=== PATIENT | male | born 1960 | race Caucasian/White ===

== ENCOUNTER 2024-01-02 08:19 | Emergency (ER) | payer MEDICAID, SELFPAY ==
[2024-01-02] VITALS (9 sets, daily range): BP systolic 131–150; BP diastolic 92–114; PULSE 84–115; RESP 15–28; TEMP 36.6–36.8; O2SAT 94–96; BMI 19.1
--- NOTE | 2024-01-02 08:58 | EKG12_ITS ---
Test Reason : SOB Blood Pressure : / mmHG Vent. Rate : 108 BPM Atrial Rate : 108 BPM P-R Int : 158 ms QRS Dur : 092 ms QT Int : 324 ms P-R-T Axes : 087 077 069 degrees QTc Int : 434 ms Sinus tachycardia Anterior infarct , age undetermined Abnormal ECG Confirmed by KARL BOYER, EBER ([id number]), society editor JODIE LARIOS ([id number]) on 01/05/2024 2:12:24 PM Referred By: AR Confirmed By:PANKAJ BARAJAS MD
--- NOTE | 2024-01-02 08:59 | ED.VIS.DYS ---
HPI History of Present Illness Chief Complaint: Shortness of Breath Narrative Narrative: 63-year-old male past medical history of COPD presents with 3 to 4 days of dyspnea/shortness of breath. States he has a cough but producing white sputum. No fevers or chills. He is a smoker and is down to 5 cigarettes a day from at least half a pack. He wears oxygen at home 3.5 L per nasal cannula as needed. He states that he has been using his inhaler and his white powder inhaler without relief of his symptoms. Today he woke up very short of breath. He denies any leg swelling. Said intermittent left-sided chest pain over the last few days as well. PFSH PFSH Home Medications ?Medication ?Instructions ?Recorded ?Last Taken ?Type albuterol sulfate 90 mcg/actuation 1 - 2 puff inhalation Q4H PRN PRN 01/02/24 Unknown Rx aerosol inhaler (Ventolin HFA) Wheezing #1 ea prednisone 20 mg tablet 40 mg (2 x 20 mg) PO DAILY #14 tabs 01/02/24 Unknown Rx Allergy/AdvReac Type Severity Reaction Status Date / Time codeine Allergy Mild Itching Verified 01/02/24 10:42 Social History Smoking Status: Never smoker ROS ROS ED ROS Narrative Constitutional: No fever, no chills. HEENT: No sore throat. No neck pain. No loss of vision. No rhinorrhea. Cardiovascular: Left-sided chest pain. No palpitations. No pedal edema. Respiratory: Positive cough productive of white sputum, positive shortness of breath. Abdominal: No abdominal pain. No nausea. No vomiting. Genitourinary: No dysuria. No hematuria. Musculoskeletal: No myalgias. No arthralgias. Neurologic: No headaches. No dizziness. No lightheadedness. Skin: No rash. No change in color. Psychiatric: No depression. No anxiety. EXAM Physical Exam Narrative Exam Narrative: Afebrile. Vital signs noted. HEENT: Normocephalic. Atraumatic. PERRL, EOMI. Neck soft and supple. No point tenderness or step off. Cardiovascular: Positive tachycardia no murmurs, rubs, or gallops appreciated. Respiratory: Mild tachypnea. Bibasilar rales and rhonchi with occasional expiratory wheezing. Gastrointestinal: Abdomen soft, nontender, with normoactive bowel sounds. No rebound or guarding. Neurological: Awake. Alert. Nonfocal, nonlateralizing. Skin: No rash. Normal color. No pallor. Musculoskeletal: No pedal edema. Full range of motion extremities. Const Vital Signs: 01/02/24 08:20 01/02/24 08:23 01/02/24 08:29 Temperature 97.9 F 97.9 F Temperature Source Temporal Temporal Pulse Rate 108 H 115 H Respiratory Rate 28 H 20 H Respiratory Effort Short of Breath Respiratory Depth Shallow Respiratory Pattern Tachypnea Blood Pressure 131/114 H 131/114 H Blood Pressure Mean 119 119 Pulse Ox 96 94 Oxygen Delivery Method Room Air Room Air Nasal Cannula Oxygen Flow Rate (L/min) 01/02/24 08:58 01/02/24 09:20 01/02/24 09:38 Temperature Temperature Source Pulse Rate 101 H Respiratory Rate 22 H Respiratory Effort Respiratory Depth Respiratory Pattern Blood Pressure 150/102 H Blood Pressure Mean 118 Pulse Ox 95 94 Oxygen Delivery Method Nasal Cannula Nasal Cannula Nasal Cannula Oxygen Flow Rate (L/min) 2 01/02/24 09:41 01/02/24 10:43 01/02/24 11:03 Temperature Temperature Source Pulse Rate 84 97 93 Respiratory Rate 22 H 15 20 H Respiratory Effort Respiratory Depth Respiratory Pattern Tachypnea Blood Pressure 140/92 H 150/97 H Blood Pressure Mean 108 114 Pulse Ox 95 95 Oxygen Delivery Method Room Air Room Air Oxygen Flow Rate (L/min) MDM MDM MDM Narrative Medical decision making narrative: Differential diagnosis includes but not limited to COPD exacerbation versus pneumonia versus pneumothorax versus pulmonary embolism versus ACS. I have low suspicion for ACS or pneumonia based on the patient's history and physical. EKG was obtained and interpreted by myself independently as normal sinus rhythm/sinus tachycardia 108 bpm without ectopy or acute ST changes. No STEMI. Chest x-ray 1 view obtained and interpreted by myself independently and shows no evidence of pneumonia or pneumothorax. I do not feel antibiotics are indicated. I reviewed the radiology report which confirms my independent interpretation. I reviewed his laboratory work and he has normal white count 10.2, hemoglobin 14.6 with platelet count normal at 215. Electrolyte panel is significant for chloride of 110 which I think is nonspecific, normal BUN of 13 and creatinine normal at 0.78, high-sensitivity troponin is 5. I do not feel he needs serial enzymes, he states he has been having left-sided chest pain that is worse with coughing as well 4 days. His BNP is normal at 8 so I do not think he is having a CHF exacerbation with that his shortness of breath is from heart failure. While his D-dimer is 0.56, age-related cutoff is 63, so I do not feel he requires CTA of the chest. Upon repeat examination at approximately 10:20 AM, he feels mildly improved, but states that he gets dyspnea on exertion at home he only has oxygen, no portable oxygen. He will be ambulated here in the emergency department to see if he becomes hypoxic or tachycardic. Patient had satisfactory ambulatory pulse ox. Once again he has oxygen at home as well. Repeat examination at approximately 11:30 AM shows him to be resting comfortably. He feels well and can go home. I wrote him a prescription for a new inhaler and for a steroid burst for the next 7 days. He will also be referred to pulmonology. Smoking cessation was encouraged. Return instructions to the emergency department were reviewed. Disposition is discharged home in stable condition. History & Record Review Discussion w/independent historian: Patient Lab Data Attestation: I reviewed the patient's lab results. Labs: Laboratory Results - last 24 hr 01/02/24 08:23 WBC 10.2 RBC 4.64 Hgb 14.6 Hct 45.0 MCV 97.0 H MCH 31.5 MCHC 32.4 RDW Std Deviation 49.3 H RDW Coeff of Brian 13.8 Plt Count 215 MPV 9.6 Immature Gran % (Auto) 0.100 Neut % (Auto) 68.9 Lymph % (Auto) 16.5 L [place] % (Auto) 8.3 Eos % (Auto) 5.6 H Baso % (Auto) 0.6 Absolute Neuts (auto) 7.0 Absolute Lymphs (auto) 1.68 Nucleated RBC % 0 D-Dimer Quant (PE/DVT) 0.56 H* Sodium 142 Potassium 3.8 Chloride 110 H Carbon Dioxide 31.0 Anion Gap 1 L BUN 13 Creatinine 0.78 Est GFR (MDRD) Af Amer 128 Est GFR (MDRD) Non-Af 106 BUN/Creatinine Ratio 16.6 Glucose 107 H Calcium 8.6 Troponin I High Sens 5 B-Natriuretic Peptide 8.0 Radiography Diagnostic Testing: Clinical Impression(s) from Imaging Studies Chest X-Ray 01/02/24 09:25 IMPRESSION: No acute thoracic pathology. Electronically Signed: Janusz Owen MD at 9:57 EDT , Discharge Plan Triage Chief Complaint: Shortness of Breath ED Provider: Angel Colon Dx/Rx/DC Orders Clinical Impression: COPD exacerbation, SOB (shortness of breath), Chest pain Instructions: ED COPD Flare, ED Chest Pain, Uncertain Cause, ED Dyspnea Prescriptions: New prednisone 20 mg tablet 40 mg PO DAILY Qty: 14 0RF albuterol sulfate [Ventolin HFA] 90 mcg/actuation HFA aerosol inhaler 1 - 2 puff inhalation Q4H PRN PRN (Reason: Wheezing) Qty: 1 0RF Primary Care Provider: Care Physician,No Primary Referrals: Care Physician,No Primary [Primary Care Provider] - Print Language: [place]an
--- NOTE | 2024-01-02 09:02 | ED.RN ---
NO OLD EKGS
[2024-01-02 09:12] LABS: Absolute Lymphocyte Count 1.68 X10^3/uL (0.83-4.51); Basophil# 0.06 X10^3/uL; Basophil% 0.6 % (0-1); Eosinophil# 0.57 X10^3/uL; Eosinophils% 5.6 % (0-5); Hemoglobin 14.6 g/dL (13.0-16.5); Lymphocyte # 1.68 X10^3/ul (0.83-4.51); Lymphocyte % 16.5 % (19-41); Mean Corp Hgb Conc 32.4 g/dL (32-36); Mean Corpuscular Hgb 31.5 pg (27.0-32.0); Mean Platelet Vol. 9.6 fl (6.2-12.0); Monocyte# 0.84 X10^3/uL; Monocyte% 8.3 % (0-10); NRBC Flagged by Analyzer 0 % (0-5); Neutrophil % 68.9 % (47-70); Platelet Count 215 K/mm3 (150-450); RBC Distribution Width CV 13.8 % (11.6-14.6); RBC Distribution Width SD 49.3 fl (35.1-43.9); Red Blood Count 4.64 M/mm3 (4.6-6.2); White Blood Count 10.2 K/mm3 (4.4-11.0)
[2024-01-02] MEDS: MethylPREDNISolone 125 MG/2 ML Vial IV (09:24)
--- NOTE | 2024-01-02 09:25 | RAD_ITS ---
STUDY: X-RAY CHEST REASON FOR EXAM: Male, 63 years old. Shortness of breath TECHNIQUE: Frontal view of the chest COMPARISON: None. FINDINGS: The lungs are hyperinflated, but clear. There are no pleural effusions. There is no pneumothorax. The heart is normal in size. The visualized osseous structures are within normal limits. RAD/Chest 1 View (Portable) IMPRESSION: No acute thoracic pathology. Electronically Signed: Janusz Owen MD at 9:57 EDT ,
[2024-01-02 09:28] LABS: Anion Gap 1 (5-15); BUN 13 mg/dL (7-18); BUN/Creat Ratio 16.6 RATIO (10-20); Calcium,Total 8.6 mg/dL (8.5-10.1); Chloride 110 mmol/L (98-107); Creatinine, Serum 0.78 mg/dL (0.70-1.30); EST Glomerular Filtration Rate 106 mL/min (>60); Est Glom Filt Rate - Afr Amer 128 mL/min (>60); Glucose 107 mg/dL (74-106); Potassium 3.8 mmol/L (3.5-5.1); Sodium Level 142 mmol/L (136-145); Troponin-I HS 5 pg/mL (3.0-78.0)
[2024-01-02] MEDS: Ipratropium/Albuterol Sulfate 3 ML AMPUL.NEB INHALATION (09:42)
[2024-01-02 09:44] LABS: D-Dimer Quantitative (DVT/PE) 0.56 FEU/ug/m (0.27-0.49)
--- NOTE | 2024-01-02 10:51 | ED.RN ---
PATIENT SEEMS SOB AND AUDIBLE WHEEZES WITH AMBULATION
== END 2024-01-02 11:52 | disposition home or self-care (01) ==
PROVIDERS: Emergency Provider Emergency Medicine; Visit Provider Emergency Medicine
DX: J44.1 Chronic obstructive pulmonary disease with (acute) exacerbation (principal); R07.9 Chest pain, unspecified; F17.210 Nicotine dependence, cigarettes, uncomplicated
CPT/HCPCS: 71045; 80048; 83880; 84484; 85025; 85379; 93005; 94640; 96374; 99285; A4216

== ENCOUNTER → 2024-01-20 | Outpatient (CLI) | payer MEDICAID, SELFPAY ==
[2024-01-20 12:16] LABS: Vitamin D,25 Hydroxy 21.4 ng/mL
[2024-01-20 12:19] LABS: Absolute Lymphocyte Count 1.32 X10^3/uL (0.83-4.51); Absolute Neutrophil Count 5.6 X10^3/uL (2.0-7.7); Basophil# 0.05 X10^3/uL; Basophil% 0.6 % (0-1); Eosinophil# 0.32 X10^3/uL; Hematocrit 46.2 % (40-54); Hemoglobin 14.5 g/dL (13.0-16.5); Lymphocyte # 1.32 X10^3/ul (0.83-4.51); Lymphocyte % 16.6 % (19-41); Mean Corp Hgb Conc 31.4 g/dL (32-36); Mean Corpuscular Hgb 30.4 pg (27.0-32.0); Mean Corpuscular Volume 96.9 fL (80-94); Mean Platelet Vol. 9.3 fl (6.2-12.0); Monocyte# 0.65 X10^3/uL; Monocyte% 8.2 % (0-10); NRBC Flagged by Analyzer 0 % (0-5); Neutrophil # 5.61 X10^3/uL (2.7-7.7); Neutrophil % 70.3 % (47-70); Platelet Count 347 K/mm3 (150-450); RBC Distribution Width CV 13.4 % (11.6-14.6); RBC Distribution Width SD 48.6 fl (35.1-43.9); Red Blood Count 4.77 M/mm3 (4.6-6.2)
[2024-01-20 12:29] LABS: ALB/GLOB Ratio 0.7 RATIO (0.9-2.4); AST(SGOT) 12 U/L (15-37); Alanine Aminotransfer ALT/SGPT 14 U/L (16-61); Albumin, Serum 2.9 g/dL (3.2-5.0); Alkaline Phosphatase 86 U/L (45-117); Anion Gap 2 (5-15); BUN 8 mg/dL (7-18); BUN/Creat Ratio 10.6 RATIO (10-20); Calcium,Total 8.8 mg/dL (8.5-10.1); Chloride 100 mmol/L (98-107); Cholesterol 148 mg/dL (200); Creatinine, Serum 0.75 mg/dL (0.70-1.30); EST Glomerular Filtration Rate 111 mL/min (>60); Est Glom Filt Rate - Afr Amer 135 mL/min (>60); Globulin 4.2 g/dL (2.2-4.2); Glucose 90 mg/dL (74-106); High Density Lipoprotein 36 mg/dL; Potassium 4.1 mmol/L (3.5-5.1); Protein, Total 7.1 g/dL (6.4-8.2); Sodium Level 135 mmol/L (136-145); Triglycerides 114 mg/dL; Very Low Density Lipoprotein 23 mg/dL (5-40)
== END | disposition home or self-care (01) ==
LOC: MTLAB 09:59
PROVIDERS: PCP Family Medicine; Referring Provider Family Medicine; Visit Provider Family Medicine
DX: I10 Essential (primary) hypertension (principal); N40.0 Benign prostatic hyperplasia without lower urinary tract symptoms
CPT/HCPCS: 36415; 80053; 80061; 82306; 84153; 84443; 85025

== ENCOUNTER 2024-01-21 19:06 | Observation (INO) | payer MEDICAID, SELFPAY ==
[2024-01-21 19:08] VITALS: BP 119/71; PULSE 92; RESP 18; TEMP 36.3; O2SAT 95; BMI 18.8
--- NOTE | 2024-01-21 19:27 | EDS_ITS ---
HPI History of Present Illness Chief Complaint: Allergic Reaction Detail of Chief Complaint: Upper lip swelling. Informant: patient Onset/Context/Timing Onset: Today and Hours Context: Gradual Onset Timing: Continuous Current Severity: Mild Maximum Severity: Mild Narrative Narrative: 63-year-old male history of hypertension and COPD. On the blood pressure medication lisinopril. Hour or so ago he noticed atraumatic swelling to his left upper lip. No trouble breathing or swallowing. No tongue swelling. Denies any insect bite or stings. No prior history. Has been on the blood pressure medication for years. Denies any other complaints. Prior similar symptoms: No Recent Illness/Hospitalization: No PFSH PFS Home Medications ?Medication ?Instructions ?Recorded ?Last Taken ?Type albuterol sulfate 90 mcg/actuation 1 - 2 puff inhalation Q4H PRN PRN 01/02/24 Unknown Rx aerosol inhaler (Ventolin HFA) Wheezing #1 ea fluticasone fur. 100 mcg-umeclid 1 ea inhalation DAILY 01/21/24 Unknown History 62.5 mcg-vilant 25 mcg inhalat.powder (Trelegy Ellipta) ipratropium 0.5 mg-albuterol 3 mg ml inhalation 01/21/24 Unknown History (2.5 mg base)/3 mL nebulization soln lisinopril 10 mg tablet 30 mg PO DAILY 01/21/24 Unknown History loratadine 10 mg tablet (Allergy 10 mg PO Q24H PRN allergy symptoms 01/21/24 Unknown History Relief (loratadine)) omeprazole 20 mg capsule,delayed 20 mg PO DAILY 01/21/24 Unknown History release tamsulosin 0.4 mg capsule 0.4 mg PO DAILY 01/21/24 Unknown History Allergy/AdvReac Type Severity Reaction Status Date / Time codeine Allergy Mild Itching Verified 01/21/24 19:08 Social History Smoking Status: Never smoker ROS ROS ED ROS Narrative Denies recent illness. Review of Systems ROS Unobtainable: Denies due to encephalopathy Constitutional Constitutional ED: Denies chills or fever(s) Eyes Eyes: Denies blurry vision ENT ENT ED: Denies ear pain Cardiovascular Cardiovascular: Denies chest pain Respiratory/Chest Respiratory/Chest: Denies cough Gastrointestinal Gastrointestinal: Denies abdominal pain Genitourinary Genitourinary ED: Denies dysuria or hematuria Musculoskeletal Musculoskeletal: Denies arthralgias Integumentary Denies abscess Neurologic Neurologic: Denies headache(s) Psychiatric Psychiatric: Denies anxiety Endocrine Endocrinology: Denies cold intolerance Hematologic/Lymphatic Hematologic/Lymphatic: Reports none Allergic/Immunologic Allergic/Immunologic ED: Reports mouth swelling; Denies tongue swelling or urticaria EXAM Physical Exam Narrative Exam Narrative: Send 3-year-old male no acute distress vital signs stable afebrile. Pulse ox 95% room air no signs of hypoxia. No trouble breathing or swallowing. No drooling. H EENT exam his upper lip is swollen mildly to moderately. No trouble breathing or swallowing. No drooling. Posterior pharynx and tongue are normal and not swollen. There is no signs of any insect bite or sting on his lip. Neck nontender. Lungs clear. Heart regular rhythm rate about 90 no murmur. Chest wall ribs nontender. Abdomen soft nontender. Moving all 4 extremities. Nontender no edema. No rashes. He is awake and alert. Answering questions following commands. He is lying comfortably in bed. Const Vital Signs: 01/21/24 19:08 01/21/24 21:07 Temperature 97.4 F L Temperature Source Temporal Pulse Rate 92 94 Respiratory Rate 18 18 Blood Pressure 119/71 Blood Pressure Mean 87 Pulse Ox 95 97 Oxygen Delivery Method Room Air Room Air Positive well nourished and well developed; Negative for obese, cachectic, contractures or unkempt General Appearance ED: well developed and NAD; Negative for unkempt, cachectic, contractures, cyanotic or diaphoretic Nutritional Appearance: Negative for cachectic or obese HEENT Reports moist mucous membranes; Denies dry mucous membranes HEENT Narrative: Swollen left upper lip. No tongue swelling. Posterior pharynx unremarkable. Mouth ED: No dry mucous membranes Mouth: No dry mucous membranes Eyes PERRL and EOMs intact bilaterally Neck no lymphadenopathy, supple and no JVD Chest Wall inspection of chest normal and palpation of chest normal Resp normal respiratory effort and clear to auscultation bilaterally Effort and Inspection: Negative for retractions Auscultation: Negative for rales, rhonchi, wheezes or diminished lung sounds Cardio regular rate, regular rhythm, S1 normal heart sound, S2 normal heart sound and no murmurs GI normal to inspection, nondistended, normoactive bowel sounds, non-tender, non- distended and no masses Auscultation: Negative for normoactive bowel sounds Palpation: soft; Negative for tender Back/Spine no CVA tenderness General Back: Negative for CVA tenderness Cervical Spine: Negative for cervical spine tenderness Thoracic Spine / Upper Back: Negative for thoracic spinal tenderness or par aspinal muscle tenderness Lumbar Spine / Lower Back: Negative for lumbar spinal tenderness Extremity normal to inspection General Extremety ED: Negative for edema, tenderness or other findings General Extremity: Negative for edema or other findings Neuro oriented x3 and CN's II-XII intact bilaterally Sensorium / Orientation: alert Motor Exam: strength 5/5 throughout; Negative for general weakness or strength abnormal Psych mental status grossly normal Appearance: Negative for unkempt Attitude: No agitated Mood & Affect: Negative for depressed, anxious or tearful Skin no rashes or lesions noted, no wounds and skin turgor normal General Skin Exam: elasticity normal Lesions: No lesion noted Rashes: No rashes noted Trauma: Negative for abrasion Wounds: Negative for wounds noted MDM MDM MDM Narrative Medical decision making narrative: 63-year-old male with atraumatic lip swelling. Concern for angioneurotic edema secondary to him being on the blood pressure medication lisinopril. Patient IV will be started. He will be given Solu-Medrol Benadryl and Pepcid. That may not cause any relief of his symptoms if it is REEMA inhibitor induced. Will be observed closely. Currently he is in no distress. At this time he does not need to be intubated. Repeat exam at 8:45 PM upper lips a little more swollen. No swelling of the tongue and posterior pharynx. No trouble breathing. No significant change but also no improvement with the medications. Repeat exam at 9:35 PM. Slightly worse. Again just swelling of his upper lip. No tongue or posterior pharynx involvement. He is in no distress. He is lying supine in bed. He is having no trouble breathing or swallowing. I will speak to the hospitalist about observing the patient overnight. History & Record Review Discussion w/independent historian: Patient Additional record(s) reviewed:: Prior inpatient record, Prior outpatient record, Prior ED visit and Prior labs Discharge Plan Triage Chief Complaint: Allergic Reaction ED Provider: Sameer Decker Dx/Rx/DC Orders Clinical Impression: Angioneurotic edema, History of hypertension, History of COPD Instructions: ED Angioedema Prescriptions: No Action albuterol sulfate [Ventolin HFA] 90 mcg/actuation HFA aerosol inhaler 1 - 2 puff inhalation Q4H PRN PRN (Reason: Wheezing) Qty: 1 0RF lisinopril 10 mg tablet 30 mg PO DAILY ipratropium-albuterol 0.5 mg-3 mg(2.5 mg base)/3 mL solution for nebulization inhalation loratadine [Allergy Relief (loratadine)] 10 mg tablet 10 mg PO Q24H PRN (Reason: allergy symptoms) Trelegy Ellipta 100-62.5-25 mcg blister with device 1 ea inhalation DAILY tamsulosin 0.4 mg capsule 0.4 mg PO DAILY omeprazole 20 mg capsule,delayed release(DR/EC) 20 mg PO DAILY Primary Care Provider: Iker Blackwell Referrals: Iker Blackwell MD [Primary Care Provider] - Print Language: Polish Disposition Disposition: Acute Care Hospital [facility]
[2024-01-21] MEDS: DiphenhydrAMINE 50 MG/ML Syringe 25 MG IV (19:33)
[2024-01-21] MEDS: MethylPREDNISolone 125 MG/2 ML Vial IV (19:33)
[2024-01-21] MEDS: Famotidine 200 MG/20 ML MDV 20 MG in 0.9% Normal Saline (Pres. free 8 ML 300 MG IV (19:36)
[2024-01-21 21:07] VITALS: PULSE 94; RESP 18; O2SAT 97
--- NOTE | 2024-01-21 21:37 | PCM.HP.STD ---
[facility] - General General Date of Admission: 01/21/24 Date of Service: 01/21/24 Chief Complaint: Upper Lip Swelling on Lisinopril. HPI Narrative WOLF WALSH, is a 63 M with a past medical history of essential hypertension, hyperlipidemia, history of tobacco abuse; with subsequent COPD, BPH, GERD and OA who presents to [facility] ER complaining of swelling of his upper lip. Mr. Walsh reports his symptoms began approximately 3-4 hours prior to arrival after he awakened from a nap with atraumatic swelling of his upper lip. He states he has been on Lisinopril for years and he denies a history of cough, lip swelling or angioedema. He also denies any insect bites or stings. He denies difficulty with swallowing or breathing at this time. There is no related fever, chills, nausea, vomiting, diarrhea, constipation or urticaria. In the ER he was diagnosed with Angioedema due to Lisinopril and he was then admitted to the PCU under observation status for a stay that is expected to be less than 2 midnights. [facility] Home Medications ?Medication ?Instructions ?Recorded ?Last Taken ?Type albuterol sulfate 90 mcg/actuation 1 - 2 puff inhalation Q4H PRN PRN 01/02/24 Unknown Rx aerosol inhaler (Ventolin HFA) Wheezing #1 ea fluticasone fur. 100 mcg-umeclid 1 ea inhalation DAILY 01/21/24 Unknown History 62.5 mcg-vilant 25 mcg inhalat.powder (Trelegy Ellipta) ipratropium 0.5 mg-albuterol 3 mg 1.5 ml inhalation copd 01/21/24 Unknown History (2.5 mg base)/3 mL nebulization soln lisinopril 10 mg tablet 30 mg PO DAILY 01/21/24 Unknown History loratadine 10 mg tablet (Allergy 10 mg PO Q24H PRN allergy symptoms 01/21/24 Unknown History Relief (loratadine)) omeprazole 20 mg capsule,delayed 20 mg PO DAILY 01/21/24 Unknown History release tamsulosin 0.4 mg capsule 0.4 mg PO DAILY 01/21/24 Unknown History Allergy/AdvReac Type Severity Reaction Status Date / Time lisinopril Allergy Severe Angioedema Verified 01/21/24 22:06 codeine Allergy Mild Itching Verified 01/21/24 19:08 Social History Smoking Status: Light Smoker (<10/day) ROS ROS Narrative Review of systems: Constitutional: Patient denies fever or chills. Eyes: Patient denies visual changes or discharge from eyes. ENT: Patient denies runny nose, sore throat or ear pain. CV: Patient denies chest pain, palpitations or heart racing. Resp: Patient denies SOB or cough. GI: Patient denies abdominal pain, nausea or vomiting. : Patient denies dysuria, hematuria or urinary frequency. MSK: Patient denies arthralgias or myalgias. Skin: Patient denies rash, abscess or jaundice. Psych: Patient denies symptoms related to uncontrolled depression or anxiety. Neuro: Patient denies headache, paresthesias or focal neurologic deficits. Hematology: Patient denies easy bleeding or easy bruisability. Endocrinology: Patient denies polyuria, polydipsia or polyphagia. 14 point ROS otherwise negative except for positives noted above in HPI. Vital Signs Vital Signs Vital Signs: 01/21/24 19:08 01/21/24 21:07 Temperature 97.4 F L Temperature Source Temporal Pulse Rate 92 94 Respiratory Rate 18 18 Blood Pressure 119/71 Blood Pressure Mean 87 Pulse Ox 95 97 Oxygen Delivery Method Room Air Room Air Weight Weight: 142 lb 11.2 oz Body Mass Index (BMI) 18.8 Physical Exam Const alert, oriented x3, no apparent distress, average body habitus and healthy appearing General Appearance: cooperative HEENT normocephalic, head/scalp atraumatic, hearing grossly normal bilaterally and moist oral mucous membranes HEENT Narrative: Patient has swollen upper lip. Eyes PERRL and EOMs intact bilaterally Neck no lymphadenopathy and supple Resp normal respiratory effort, no retractions, no use of accessory muscles and clear to auscultation bilaterally Cardio regular rate and regular rhythm GI normal to inspection, nondistended, normoactive bowel sounds, soft to palpation, non-tender and non-distended Extremity normal to inspection and full ROM Skin Skin Narrative: Patient has no evidence of rash, abscess or jaundice. Neuro oriented x3, CN's II-XII intact bilaterally, moves all extremities and no focal motor deficits Sensorium / Orientation: awake, alert, oriented to person, oriented to place and oriented to time Speech: speech normal Psych affect normal Results Medical Records Data Attestation: I reviewed the patient's medical records Lab / Micro Data Attestation: I reviewed the patient's lab results. Assessment & Plan Assessment/Plan (1) Angioneurotic edema: QUALIFIERS: Encounter type: initial encounter Qualified Code(s): T78.3XXA - Angioneurotic edema, initial encounter (2) Adverse reaction to REEMA inhibitor drug: QUALIFIERS: Encounter type: initial encounter Qualified Code(s): T46.4X5A - Adverse effect of kaiomlofipt-[id number] inhibitors, initial encounter (3) History of hypertension: (4) History of COPD: (5) History of tobacco abuse: PLAN: Plan 1. Angioedema with upper lip swelling due to Adverse Drug Reaction to Lisinopril - Admit to PCU under observation status. Continue Solumedrol, Pepcid and prn IV Benadryl begun in the ER and monitor for improvement. I also contacted the pharmacist on-call and had this agent added to his list of allergies to prevent potential recurrence. 2. Essential hypertension - Stop Lisinopril permanently and give IV Hydralazine prn for systolic blood pressure > 160 mmHg. 3. Hyperlipidemia - Resume statin in AM. 4. History of tobacco abuse; with subsequent COPD - Stable with no evidence of acute flare at this time. 5. BPH - Stable. Resume Tamsulosin as previous. 6. GERD - Continue PPI as before. 7. OA - Give Tylenol prn. 8. DVT prophylaxis - Lovenox 40 mg sq daily. Total time: Approximately 70 minutes. Charges/Coding Visit Charges OBSV E&M: 63212 Observ/hosp same date L2
[2024-01-21 21:55] VITALS: BP 117/93; PULSE 92; RESP 24; TEMP 37.1; O2SAT 94
[2024-01-21 22:27] VITALS: BMI 17.2
[2024-01-21 22:55] VITALS: BP 123/93; PULSE 89; RESP 18; TEMP 36.7; O2SAT 94
[2024-01-21] MEDS: Loratadine 10 MG Tablet PO (23:15)
[2024-01-21] MEDS: MELATONIN 3 MG TABLET PO (23:15)
[2024-01-21] MEDS: cycloBENZAPRine HCl 10 MG Tablet PO (23:15)
[2024-01-21] MEDS: 0.9% Normal Saline (1000mL) 1,000 ML 70 ML IV (23:15)
[2024-01-22 03:56] VITALS: BMI 17.2
[2024-01-22 04:00] VITALS: BP 123/77; PULSE 91; RESP 16; TEMP 36.6; O2SAT 95
[2024-01-22 05:23] LABS: Absolute Lymphocyte Count 0.36 X10^3/uL (0.83-4.51); Absolute Neutrophil Count 2.4 X10^3/uL (2.0-7.7); Basophil# 0.01 X10^3/uL; Basophil% 0.4 % (0-1); Hematocrit 40.4 % (40-54); Lymphocyte # 0.36 X10^3/ul (0.83-4.51); Lymphocyte % 12.9 % (19-41); Mean Corp Hgb Conc 32.2 g/dL (32-36); Mean Corpuscular Hgb 30.7 pg (27.0-32.0); Mean Corpuscular Volume 95.5 fL (80-94); Mean Platelet Vol. 9.3 fl (6.2-12.0); Monocyte# 0.02 X10^3/uL; Monocyte% 0.7 % (0-10); NRBC Flagged by Analyzer 0 % (0-5); Neutrophil # 2.39 X10^3/uL (2.7-7.7); Neutrophil % 85.6 % (47-70); POSITIVE DIFFERENTIAL YES; Platelet Count 314 K/mm3 (150-450); RBC Distribution Width CV 13.2 % (11.6-14.6); RBC Distribution Width SD 46.6 fl (35.1-43.9); Red Blood Count 4.23 M/mm3 (4.6-6.2); White Blood Count 2.8 K/mm3 (4.4-11.0)
[2024-01-22 05:37] LABS: Differential Indicated SCAN CRITERIA MET
[2024-01-22 05:59] LABS: ALB/GLOB Ratio 0.7 RATIO (0.9-2.4); AST(SGOT) 8 U/L (15-37); Alanine Aminotransfer ALT/SGPT 9 U/L (16-61); Albumin, Serum 2.5 g/dL (3.2-5.0); Alkaline Phosphatase 79 U/L (45-117); Anion Gap 5 (5-15); BUN 10 mg/dL (7-18); BUN/Creat Ratio 12.3 RATIO (10-20); Calcium,Total 8.4 mg/dL (8.5-10.1); Chloride 102 mmol/L (98-107); Creatinine, Serum 0.81 mg/dL (0.70-1.30); EST Glomerular Filtration Rate 102 mL/min (>60); Est Glom Filt Rate - Afr Amer 123 mL/min (>60); Estimated Creatinine Clearance 80.67 ml/min; Globulin 3.8 g/dL (2.2-4.2); Glucose 192 mg/dL (74-106); Potassium 4.2 mmol/L (3.5-5.1); Protein, Total 6.3 g/dL (6.4-8.2); Sodium Level 135 mmol/L (136-145)
[2024-01-22 06:22] LABS: Differential Comment SCANNED
[2024-01-22] MEDS: Ipratropium/Albuterol Sulfate 3 ML AMPUL.NEB 1 ML INHALATION (07:21)
[2024-01-22 07:26] VITALS: PULSE 96; RESP 16; O2SAT 91
[2024-01-22 09:46] VITALS: BP 107/80; PULSE 100; RESP 18; TEMP 36.7; O2SAT 96
[2024-01-22] MEDS: MethylPREDNISolone 125 MG/2 ML Vial 60 MG IV (09:46)
[2024-01-22] MEDS: Famotidine 200 MG/20 ML MDV 20 MG in 0.9% Normal Saline (Pres. free 8 ML 300 MG IV (09:46)
[2024-01-22] MEDS: Tamsulosin HCl 0.4 MG Capsule PO (09:47)
[2024-01-22] MEDS: Pantoprazole Sodium 20 MG Tablet PO (09:47)
--- NOTE | 2024-01-22 10:10 | PCM.DC.SUM ---
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: Status: Acute Code(s): T46.4X5A - Adverse effect of cygwsvjimhn-oxxrihnwpn-lhhjej inhibitors, initial encounter Qualifiers: Encounter type: initial encounter Qualified Code(s): T46.4X5A - Adverse effect of jvdvosenqfa-ldgiplzfav-mzyrjn inhibitors, initial encounter (3) History of hypertension: Status: Acute Code(s): Z86.79 - Personal history of other diseases of the circulatory system (4) History of COPD: Status: Chronic Code(s): Z87.09 - Personal history of other diseases of the respiratory system (5) History of tobacco abuse: Status: Acute Code(s): Z87.891 - Personal history of nicotine dependence Medications at Discharge Home Medications albuterol sulfate 90 mcg/actuation aerosol inhaler (Ventolin HFA) 1 - 2 puff inhalation Q4H PRN PRN Wheezing #1 ea 01/02/24 fluticasone fur. 100 mcg-umeclid 62.5 mcg-vilant 25 mcg inhalat.powder (Trelegy Ellipta) 1 ea inhalation DAILY 01/21/24 ipratropium 0.5 mg-albuterol 3 mg (2.5 mg base)/3 mL nebulization soln 1.5 ml inhalation copd 01/21/24 loratadine 10 mg tablet (Allergy Relief (loratadine)) 10 mg PO Q24H PRN allergy symptoms 01/21/24 omeprazole 20 mg capsule,delayed release 20 mg PO DAILY 01/21/24 tamsulosin 0.4 mg capsule 0.4 mg PO DAILY 01/21/24 diphenhydramine HCl 25 mg capsule 50 mg (2 x 25 mg) PO TID PRN allergic reaction #20 caps 01/22/24 famotidine 20 mg tablet 20 mg PO DAILY #5 tabs 01/22/24 prednisone 20 mg tablet 40 mg (2 x 20 mg) PO DAILY #10 tabs 01/22/24 Hospital Course Operations None Procedures None Summary of Care Provided Minutes Spent on Discharge: 32 Hospital Course: Patient presents with lip swelling that began suddenly on the . Patient had no airway compromise per presented to the emergency room. He had received 105 mg of methylprednisolone, 20 mg of famotidine and 25 mg of diphenhydramine. Those were all obtained in the emergency room and on the floor, he was continued on those medications. His lip swelling has completely resolved. This is never happened before. Patient was previously taking lisinopril and that is been discontinued as this is an REEMA inhibitor induced angioedema. Patient also be advised to avoid angiotensin receptor blockers in the future as that can have the same reaction. Patient takes lisinopril for hypertension. Blood pressure is remained stable here but given his history of hypertension will start him on amlodipine 2.5 mg daily. Patient will be continued on prednisone 40 mg for 5 days as well as famotidine orally for 5 days and diphenhydramine as needed. Patient is coming from [place] but plans to stay here with his daughter states that he has been established with a primary care physician up here. Weight / BMI Weight Weight: 61.1 kg Body Mass Index (BMI) 17.2 ABG / Lab / Microbiology Data 01/22/24 04:59 01/22/24 04:59 Laboratory: Laboratory Results - last 24 hr 01/22/24 04:59: WBC 2.8 L, RBC 4.23 L, Hgb 13.0, Hct 40.4, MCV 95.5 H, MCH 30.7, MCHC 32.2, RDW Std Deviation 46.6 H, RDW Coeff of Brian 13.2, Plt Count 314, MPV 9.3, Immature Gran % (Auto) 0.400, Neut % (Auto) 85.6 H, Lymph % (Auto) 12.9 L, [place] % (Auto) 0.7, Eos % (Auto) 0.0, Baso % (Auto) 0.4, Absolute Neuts (auto) 2.4, Absolute Lymphs (auto) 0.36 L, Nucleated RBC % 0, Differential Comment SCANNED, Diff Path Review October, Sodium 135 L, Potassium 4.2, Chloride 102, Carbon Dioxide 28.0, Anion Gap 5, BUN 10, Creatinine 0.81, Estim Creat Clear Calc 80.67, Est GFR (MDRD) Af Amer 123, Est GFR (MDRD) Non-Af 102, BUN/Creatinine Ratio 12.3, Glucose 192 H, Calcium 8.4 L, Phosphorus 2.0 L, Magnesium 2.0, Total Bilirubin 0.30, AST 8 L, ALT 9 L, Alkaline Phosphatase 79, Total Protein 6.3 L, Albumin 2.5 L, Globulin 3.8, Albumin/Globulin Ratio 0.7 L, TSH 0.600 D/C Instructions Discharge Diet: No restrictions Meaningful Use Info Meaningful Use Meaningful Use Diagnoses (Choose all that apply): None applicable Ischemic Stroke Statin Dosing Therapy Reference: STATIN DOSE THERAPY REFERENCE: * Patients > 75 years receive moderate or high dose statin therapy. * Patients 75 years or YOUNGER should receive HIGH intensity statin dose unless contraindicated. You will be required to document reason for non-treatment if statin daily dose does not meet guidelines. HIGH DOSE STATIN THERAPY DAILY Atorvastatin > than or = to 40 mg Rosuvastatin > than or = to 20 mg Amlodipine + Atorvastatin > than or = to 2.5/40 mg Ezetimibe + Simvastatin 10/80 mg Simvastatin 80mg Discharge Plan Admission Admit Date/Time: 01/21/24 21:57 Primary Reason for Your Visit: Andioedema Attending Provider: Elijah Guerrero Primary Care Provider: Iker Blackwell Consulting Providers: Jose Tyler Instructions Patient Instructions: ED Angioedema Additional Instructions / Restrictions: You had angioedema (swelling on your face) secondary to lisinopril. That can be a potentially severe life-threatening reaction in the future so you should never take lisinopril, which is part of the REEMA inhibitor family of medications, but also to avoid the medications angiotensin receptor blockers (AKA, ARBs. such as losartan) in the future. If you tell your primary care doctor or any other physician that you have a history of angioedema they will most likely know what you are referring to. I have started you on amlodipine to help with your blood pressure. This medication will not have that side effect. Discharge Orders/Prescriptions Prescriptions: New prednisone 20 mg tablet 40 mg PO DAILY Qty: 10 0RF famotidine 20 mg tablet 20 mg PO DAILY Qty: 5 0RF diphenhydramine HCl 25 mg capsule 50 mg PO TID PRN (Reason: allergic reaction) Qty: 20 0RF Continued albuterol sulfate [Ventolin HFA] 90 mcg/actuation HFA aerosol inhaler 1 - 2 puff inhalation Q4H PRN PRN (Reason: Wheezing) Qty: 1 0RF ipratropium-albuterol 0.5 mg-3 mg(2.5 mg base)/3 mL solution for nebulization 1.5 ml inhalation loratadine [Allergy Relief (loratadine)] 10 mg tablet 10 mg PO Q24H PRN (Reason: allergy symptoms) Trelegy Ellipta 100-62.5-25 mcg blister with device 1 ea inhalation DAILY tamsulosin 0.4 mg capsule 0.4 mg PO DAILY omeprazole 20 mg capsule,delayed release(DR/EC) 20 mg PO DAILY Discontinued lisinopril 10 mg tablet 30 mg PO DAILY Referrals / Follow Up: Iker Blackwell MD [Primary Care Provider] - Within 2 Weeks Disposition Disposition (needs filled in before D/C Order can be placed): Home, Self Care
--- NOTE | 2024-01-22 10:32 | CASEMGMT ---
Patient has order for discharge. RN CM in to discuss needs at discharge. Patient denies needs or help at discharge, lives with daughter. Patient had no further questions or concerns.
[2024-01-22 13:59] LABS: Pathologist Review Reviewed
== END 2024-01-22 10:19 | disposition home or self-care (01) ==
LOC: ED 21:36 → PCU 22:07
PROVIDERS: Admitting Provider Internal Medicine; Emergency Provider Emergency Medicine; PCP Family Medicine
DX: T78.3XXA Angioneurotic edema, initial encounter (principal); J44.9 Chronic obstructive pulmonary disease, unspecified; I10 Essential (primary) hypertension; K21.9 Gastro-esophageal reflux disease without esophagitis; T46.4X5A Adverse effect of angiotensin-converting-enzyme inhibitors, initial encounter; F17.200 Nicotine dependence, unspecified, uncomplicated; E78.5 Hyperlipidemia, unspecified; Z79.51 Long term (current) use of inhaled steroids; Z79.899 Other long term (current) drug therapy; M19.90 Unspecified osteoarthritis, unspecified site; N40.0 Benign prostatic hyperplasia without lower urinary tract symptoms
CPT/HCPCS: 36415; 80053; 83735; 84100; 84443; 85025; 94640; 94668; 96365; 96366; 96375; 96376; 99221; 99284; J7030; A4216; G0378; J3490

== ENCOUNTER 2024-05-17 15:18 | Observation (INO) | payer MEDICAID, SELFPAY ==
[2024-05-17] VITALS (16 sets, daily range): BP systolic 121–160; BP diastolic 75–106; PULSE 92–109; RESP 16–25; TEMP 36.5–37; O2SAT 94–98; BMI 20.4; BMI 19.8
--- NOTE | 2024-05-17 15:40 | EKG12_ITS ---
Test Reason : SOB Blood Pressure : */* mmHG Vent. Rate : 90 BPM Atrial Rate : 90 BPM P-R Int : 150 ms QRS Dur : 90 ms QT Int : 346 ms P-R-T Axes : 65 42 46 degrees QTcB Int : 423 ms Sinus rhythm with Premature atrial complexes Anterior infarct (cited on or before 02-Jan-2024) Abnormal ECG Confirmed by ROCK BOYER, PARAG ([id number]), editorial writer HAMILTON JUAREZ ([id number]) on 05/18/2024 11:40:35 AM Referred By: Confirmed By: PARAG WILKERSON MD
--- NOTE | 2024-05-17 15:41 | EDS_ITS ---
HPI History of Present Illness Chief Complaint: Shortness of Breath Detail of Chief Complaint: Shortness of breath Informant: patient Narrative Narrative: Patient presents to the emergency department via EMS from home with increased shortness of breath over the last 3 days. He does have a cough is mostly nonproductive but at times brings up some white phlegm. He denies fevers or chills or sweats. He does have history of COPD and is on 3-1/2 L at night when he sleeps. Denies sick contacts. Patient denies recent travel or surgery. No history of PE or DVT. Complains of chest soreness from coughing. [facility] Medical History (Updated 05/17/24 @ 17:[address] Dior Candelaria, DO) History of tobacco abuse Adverse reaction to REEMA inhibitor drug History of COPD History of hypertension Home Medications ?Medication ?Instructions ?Recorded ?Last Taken ?Type albuterol sulfate 90 mcg/actuation 1 - 2 puff inhalation Q4H PRN PRN 01/02/24 Unknown Rx aerosol inhaler (Ventolin HFA) Wheezing #1 ea fluticasone fur. 100 mcg-umeclid 1 ea inhalation DAILY breathing 01/21/24 Unknown History 62.5 mcg-vilant 25 mcg inhalat.powder (Trelegy Ellipta) ipratropium 0.5 mg-albuterol 3 mg 1.5 ml inhalation copd 01/21/24 Unknown History (2.5 mg base)/3 mL nebulization soln loratadine 10 mg tablet (Allergy 10 mg PO Q24H PRN allergy symptoms 01/21/24 Unknown History Relief (loratadine)) omeprazole 20 mg capsule,delayed 20 mg PO DAILY reflux 01/21/24 Unknown History release tamsulosin 0.4 mg capsule 0.4 mg PO DAILY prostate 01/21/24 Unknown History amlodipine 2.5 mg tablet (Norvasc) 2.5 mg PO DAILY #30 tabs 01/22/24 Unknown Rx diphenhydramine HCl 25 mg capsule 50 mg (2 x 25 mg) PO TID PRN 01/22/24 Unknown Rx allergic reaction #20 caps famotidine 20 mg tablet 20 mg PO DAILY #5 tabs 01/22/24 Unknown Rx prednisone 20 mg tablet 40 mg (2 x 20 mg) PO DAILY #10 tabs 01/22/24 Unknown Rx Allergy/AdvReac Type Severity Reaction Status Date / Time lisinopril Allergy Severe Angioedema Verified 05/17/24 15:23 codeine Allergy Mild Itching Verified 05/17/24 15:23 Social History Smoking Status: Light Smoker (<10/day) ROS ROS ED Review of Systems ROS Unobtainable: other Constitutional Constitutional ED: Reports lethargy; Denies chills, fever(s), sweats or weight loss Eyes Eyes: Denies blurry vision, change in vision or diplopia ENT ENT ED: Denies rhinorrhea or sore throat Cardiovascular Cardiovascular: Reports chest pain; Denies orthopnea or racing heartbeat Respiratory/Chest Respiratory/Chest: Reports cough, dyspnea and dyspnea on exertion; Denies orthopnea or sputum Gastrointestinal Gastrointestinal: Denies abdominal pain, diarrhea, nausea or vomiting Genitourinary Genitourinary ED: Denies dysuria, hematuria or urinary frequency Musculoskeletal Musculoskeletal: Denies arthralgias, back pain, myalgias or neck pain Integumentary Denies abscess, Abrasions or rash Neurologic Neurologic: Denies headache(s) or weakness Psychiatric Psychiatric: Denies anxiety, depression or suicidal thoughts Endocrine Endocrinology: Denies polydipsia, polyphagia or polyuria Hematologic/Lymphatic Hematologic/Lymphatic: Denies easy bleeding, easy bruising or lymphadenopathy Allergic/Immunologic Allergic/Immunologic ED: Denies mouth swelling, tongue swelling or urticaria EXAM Physical Exam Const Vital Signs: 05/17/24 15:19 05/17/24 15:22 05/17/24 15:23 Temperature 98.4 F 98.4 F Temperature Source Oral Oral Pulse Rate 92 99 Respiratory Rate 25 H 22 H Respiratory Effort Short of Breath Respiratory Depth Shallow Respiratory Pattern Tachypnea Blood Pressure 143/97 H 143/97 H Blood Pressure Mean 112 112 Pulse Ox 95 96 Oxygen Delivery Method Room Air Room Air Room Air 05/17/24 15:40 05/17/24 15:59 05/17/24 16:22 Temperature 98.2 F Temperature Source Oral Pulse Rate 92 97 Respiratory Rate 17 16 Respiratory Effort Respiratory Depth Respiratory Pattern Normal Blood Pressure 155/106 H Blood Pressure Mean 122 Pulse Ox 96 94 Oxygen Delivery Method Room Air Room Air Positive well nourished and well developed General Appearance ED: well developed and NAD HEENT Reports TM's clear and moist mucous membranes normocephalic and atraumatic; Negative for trauma or tenderness Tympanic Membrane ED: Yes TM's clear Eyes PERRL and EOMs intact bilaterally General Eye ED: Negative for pale conjunctiva or scleral icterus Neck no lymphadenopathy, supple and no JVD General: Negative for tenderness Chest Wall inspection of chest normal and palpation of chest normal Chest: Negative for tenderness Resp No normal respiratory effort and No clear to auscultation bilaterally Resp Narrative: Mild tachypnea with mild conversational dyspnea. Diminished breath sounds bilaterally with faint expiratory wheezes. Effort and Inspection: Negative for respiratory distress or pain with movement Auscultation: wheezes and diminished lung sounds; Negative for rhonchi Cardio regular rate, regular rhythm, S1 normal heart sound, S2 normal heart sound and no murmurs Peripheral Pulses: pulses 2+ throughout GI normal to inspection, nondistended, normoactive bowel sounds, soft to palpation, non-tender, non-distended and no masses Back/Spine no CVA tenderness and no thoracic nor lumbar tenderness Extremity normal to inspection General Extremety ED: Negative for edema General Extremity: Negative for edema Neuro oriented x3, CN's II-XII intact bilaterally, no sensory deficits noted and gait normal Sensorium / Orientation: awake, alert, oriented to person, oriented to place and oriented to time Motor Exam: strength 5/5 throughout and strength abnormal Psych mental status grossly normal Skin no rashes or lesions noted and no wounds MDM MDM MDM Narrative Medical decision making narrative: Patient with cough and dyspnea. History of COPD. Cough nonproductive and no fever. Clinically wheezing and diminished breath sounds bilaterally. IV line established. Patient had received Solu-Medrol en route to the hospital. He received a DuoNeb aerosol on the way to the hospital. Patient was ordered albuterol aerosol. CBC with differential obtained showed white count of 9.0 with hemoglobin 15.5 and platelet count of 280. Chemistries were unremarkable. Troponin was normal at 8. Chest x-ray obtained showed emphysematous changes without evidence of infiltrate. COVID flu and RSV testing ordered and pending. On repeat examination patient with continued conversational dyspnea and hypoxic on room air with O2 sat of 88% at rest. Will discuss case with hospitalist to evaluate patient for admission for COPD exacerbation and respiratory failure Lab Data Attestation: I reviewed the patient's lab results. Labs: Laboratory Results - last 24 hr 05/17/24 15:28 WBC 9.0 RBC 5.15 Hgb 15.5 Hct 49.6 MCV 96.3 H MCH 30.1 MCHC 31.3 L RDW Std Deviation 45.3 H RDW Coeff of Brian 12.6 Plt Count 280 MPV 9.4 Immature Gran % (Auto) 0.200 Neut % (Auto) 65.6 Lymph % (Auto) 19.6 [place] % (Auto) 8.1 Eos % (Auto) 5.5 H Baso % (Auto) 1.0 Absolute Neuts (auto) 5.9 Absolute Lymphs (auto) 1.77 Nucleated RBC % 0 Sodium 140 Potassium 3.9 Chloride 105 Carbon Dioxide 31.0 Anion Gap 4 L BUN 8 Creatinine 0.71 Estim Creat Clear Calc 107.34 Est GFR (MDRD) Af Amer 143 Est GFR (MDRD) Non-Af 119 BUN/Creatinine Ratio 11.3 Glucose 95 Calcium 9.2 Troponin I High Sens 8 Radiography Diagnostic Testing: Clinical Impression(s) from Imaging Studies Chest X-Ray 05/17/24 16:05 IMPRESSION: Chronic interstitial and emphysematous changes with focal scarring in left lower lobe Discoid atelectasis at left base which is new finding since prior study.. Electronically Signed: Reji Camilo MD at 16:44 EST Reading Location ID and State: [facility] / [place] Tel , Service support , Discharge Plan Triage Chief Complaint: Shortness of Breath ED Provider: Dior Candelaria Dx/Rx/DC Orders Clinical Impression: COPD exacerbation, Respiratory failure, Hypoxemia Prescriptions: No Action albuterol sulfate [Ventolin HFA] 90 mcg/actuation HFA aerosol inhaler 1 - 2 puff inhalation Q4H PRN PRN (Reason: Wheezing) Qty: 1 0RF ipratropium-albuterol 0.5 mg-3 mg(2.5 mg base)/3 mL solution for nebulization 1.5 ml inhalation loratadine [Allergy Relief (loratadine)] 10 mg tablet 10 mg PO Q24H PRN (Reason: allergy symptoms) Trelegy Ellipta 100-62.5-25 mcg blister with device 1 ea inhalation DAILY tamsulosin 0.4 mg capsule 0.4 mg PO DAILY omeprazole 20 mg capsule,delayed release(DR/EC) 20 mg PO DAILY prednisone 20 mg tablet 40 mg PO DAILY Qty: 10 0RF famotidine 20 mg tablet 20 mg PO DAILY Qty: 5 0RF diphenhydramine HCl 25 mg capsule 50 mg PO TID PRN (Reason: allergic reaction) Qty: 20 0RF amlodipine [Norvasc] 2.5 mg tablet 2.5 mg PO DAILY Qty: 30 0RF Primary Care Provider: Iker Blackwell Referrals: Iker Blackwell MD [Primary Care Provider] - Print Language: Lithuanian Disposition Disposition: Acute Care Hospital [facility]
[2024-05-17 15:57] LABS: Absolute Lymphocyte Count 1.77 X10^3/uL (0.83-4.51); Absolute Neutrophil Count 5.9 X10^3/uL (2.0-7.7); Basophil# 0.09 X10^3/uL; Eosinophils% 5.5 % (0-5); Hematocrit 49.6 % (40-54); Hemoglobin 15.5 g/dL (13.0-16.5); Lymphocyte # 1.77 X10^3/ul (0.83-4.51); Lymphocyte % 19.6 % (19-41); Mean Corp Hgb Conc 31.3 g/dL (32-36); Mean Corpuscular Hgb 30.1 pg (27.0-32.0); Mean Corpuscular Volume 96.3 fL (80-94); Mean Platelet Vol. 9.4 fl (6.2-12.0); Monocyte# 0.73 X10^3/uL; Monocyte% 8.1 % (0-10); NRBC Flagged by Analyzer 0 % (0-5); Neutrophil % 65.6 % (47-70); Platelet Count 280 K/mm3 (150-450); RBC Distribution Width CV 12.6 % (11.6-14.6); RBC Distribution Width SD 45.3 fl (35.1-43.9); Red Blood Count 5.15 M/mm3 (4.6-6.2)
[2024-05-17] MEDS: Albuterol 2.5 MG/3 ML VIAL.NEB. INHALATION ×4 (15:58→21:55)
--- NOTE | 2024-05-17 16:05 | RAD_ITS ---
STUDY: X-RAY CHEST REASON FOR EXAM: Male, 64 years old. dyspnea TECHNIQUE: AP portable COMPARISON: January 02, 2024 FINDINGS: Diffuse chronic interstitial and emphysematous changes. Focal scarring [In the superior segment of left lower lobe. Minor discoid atelectasis in left lower lobe There is no demonstrated pleural abnormality. Normal size heart. Normal mediastinum and gretchen. Normal visualized pulmonary arteries. Normal visualized aortic arch and descending thoracic aorta. Normal visualized thoracic spine. Normal visualized ribs, clavicles, and shoulders. There is no demonstrated abnormality of the visualized soft tissue structures of the upper abdomen. RAD/Chest 1 View (Portable) IMPRESSION: Chronic interstitial and emphysematous changes with focal scarring in left lower lobe Discoid atelectasis at left base which is new finding since prior study.. Electronically Signed: Reji Camilo MD at 16:44 EST ,
[2024-05-17 16:24] LABS: Anion Gap 4 (5-15); BUN 8 mg/dL (7-18); BUN/Creat Ratio 11.3 RATIO (10-20); Calcium,Total 9.2 mg/dL (8.5-10.1); Chloride 105 mmol/L (98-107); Creatinine, Serum 0.71 mg/dL (0.70-1.30); EST Glomerular Filtration Rate 119 mL/min (>60); Est Glom Filt Rate - Afr Amer 143 mL/min (>60); Estimated Creatinine Clearance 107.34 ml/min; Glucose 95 mg/dL (74-106); Potassium 3.9 mmol/L (3.5-5.1); Sodium Level 140 mmol/L (136-145); Troponin-I HS 8 pg/mL (3.0-78.0)
--- NOTE | 2024-05-17 17:16 | PCM.HP.STD ---
HPI - General General Date of Admission: 05/17/24 Date of Service: 05/17/24 Chief Complaint: Worsening shortness of breath HPI Narrative WOLF TURCIOS, is a 64 M who presented to [facility] ED on 05/17/2024 with worsening shortness of breath. Patient has history of COPD and has had COPD exacerbations in the past. He wears 3 L of oxygen at night but does not wear any oxygen during the day. On arrival to the ED he was mildly hypertensive, borderline tachycardic and satting in the low 90s on room air. Chest x-ray showed chronic interstitial emphysematous changes with discoid atelectasis at the left lung base. CBC and BMP were unremarkable. COVID/flu/RSV panel was negative. Patient was giving a DuoNeb breathing treatment but continued to have some increased work of breathing per ED physician and oxygen saturations were in the high 80s on room air. Given suspected COPD exacerbation with hypoxia, hospitalist was contacted for admission. I saw the patient at bedside in the ED. He was sitting up fairly comfortably in bed, conversing normally, in no acute distress. He was breathing comfortably on 2 L nasal cannula with saturations in the mid 90s. On exam he did have diminished breath sounds in his bilateral airways but no wheezing or crackles noted. Patient states that he has had worsening shortness of breath over the past 3 days. Has had a persistent nonproductive cough. Denies any fevers or chills. Denies any recent sick contacts. Denies any recent travel. Has no history of PE or DVT. He does report having some chest soreness due to ongoing cough. Patient currently smokes 3 to 4 cigarettes/day, states he has cut back significantly over the past several months. No other acute concerns currently. Will be admitted for further management. [facility] Medical History (Updated 05/17/24 @ 18:18 by Faith Arevalo) History of substance use History of alcohol abuse Smoker Emphysema lung Asthma COPD (chronic obstructive pulmonary disease) Coronary artery disease Hypertension Migraines TIA (transient ischemic attack) History of tobacco abuse Adverse reaction to REEMA inhibitor drug History of COPD History of hypertension Home Medications ?Medication ?Instructions ?Recorded ?Last Taken ?Type albuterol sulfate 90 mcg/actuation 1 - 2 puff inhalation Q4H PRN PRN 01/02/24 Unknown Rx aerosol inhaler (Ventolin HFA) Wheezing #1 ea fluticasone fur. 100 mcg-umeclid 1 ea inhalation DAILY breathing 01/21/24 Unknown History 62.5 mcg-vilant 25 mcg inhalat.powder (Trelegy Ellipta) ipratropium 0.5 mg-albuterol 3 mg 1.5 ml inhalation Q8H PRN copd 01/21/24 Unknown History (2.5 mg base)/3 mL nebulization soln loratadine 10 mg tablet (Allergy 10 mg PO Q24H PRN allergy symptoms 01/21/24 Unknown History Relief (loratadine)) omeprazole 20 mg capsule,delayed 20 mg PO DAILY reflux 01/21/24 Unknown History release tamsulosin 0.4 mg capsule 0.4 mg PO DAILY prostate 01/21/24 Unknown History amlodipine 2.5 mg tablet (Norvasc) 2.5 mg PO DAILY bp #30 tabs 01/22/24 Unknown Rx diphenhydramine HCl 25 mg capsule 50 mg (2 x 25 mg) PO TID PRN 01/22/24 Unknown Rx allergic reaction #20 caps cyclobenzaprine 10 mg tablet 10 mg PO BID spasm 05/17/24 Unknown History Allergy/AdvReac Type Severity Reaction Status Date / Time lisinopril Allergy Severe Angioedema Verified 05/17/24 15:23 codeine Allergy Mild Itching Verified 05/17/24 15:23 Social History Smoking Status: Light Smoker (<10/day) ROS Constitutional Constitutional: Reports fatigue; Denies chills, fever(s) or weakness Eyes Eyes: Denies change in vision Cardiovascular Cardiovascular: Denies chest pain Respiratory/Chest Respiratory/Chest: Reports cough, shortness of breath at rest and shortness of breath with exertion; Denies productive cough or wheezing Gastrointestinal Gastrointestinal: Denies abdominal pain Vital Signs Vital Signs Vital Signs: 05/17/24 15:19 05/17/24 15:22 05/17/24 15:23 Temperature 98.4 F 98.4 F Temperature Source Oral Oral Pulse Rate 92 99 Respiratory Rate 25 H 22 H Respiratory Effort Short of Breath Respiratory Depth Shallow Respiratory Pattern Tachypnea Blood Pressure 143/97 H 143/97 H Blood Pressure Mean 112 112 Pulse Ox 95 96 Oxygen Delivery Method Room Air Room Air Room Air 05/17/24 15:40 05/17/24 15:59 05/17/24 16:22 Temperature 98.2 F Temperature Source Oral Pulse Rate 92 97 Respiratory Rate 17 16 Respiratory Effort Respiratory Depth Respiratory Pattern Normal Blood Pressure 155/106 H Blood Pressure Mean 122 Pulse Ox 96 94 Oxygen Delivery Method Room Air Room Air Weight Weight: 72.2 kg Body Mass Index (BMI) 20.4 Physical Exam Const alert, oriented x3 and no apparent distress Constitutional Narrative: Middle-age male, appears older than stated age, somewhat unkempt appearing, otherwise sitting up comfortably in bed, conversing normally, in no acute distress. General Appearance: cooperative and comfortable HEENT normocephalic, head/scalp atraumatic, hearing grossly normal bilaterally, nasal mucous membranes and turbinates normal and moist oral mucous membranes Eyes PERRL, EOMs intact bilaterally and conjunctivae normal Neck full ROM Chest inspection of chest normal Resp normal respiratory effort and no use of accessory muscles Resp Narrative: Breathing comfortably on 2 L nasal cannula at rest. Diminished breath sounds bilaterally throughout but no wheezing or crackles noted. Cardio regular rate, regular rhythm, no murmurs and peripheral pulses 2+ throughout GI normal to inspection, nondistended, normoactive bowel sounds, soft to palpation, non-tender and non-distended Back/Spine normal ROM Extremity normal to inspection, full ROM and no pedal edema Skin no rashes or lesions noted Psych mental status grossly normal Results Lab / Micro Data 05/17/24 15:28 05/17/24 15:28 Labs: Laboratory Results - last 24 hr 05/17/24 15:28: WBC 9.0, RBC 5.15, Hgb 15.5, Hct 49.6, MCV 96.3 H, MCH 30.1, MCHC 31.3 L, RDW Std Deviation 45.3 H, RDW Coeff of Brian 12.6, Plt Count 280, MPV 9.4, Immature Gran % (Auto) 0.200, Neut % (Auto) 65.6, Lymph % (Auto) 19.6, [place] % (Auto) 8.1, Eos % (Auto) 5.5 H, Baso % (Auto) 1.0, Absolute Neuts (auto) 5.9, Absolute Lymphs (auto) 1.77, Nucleated RBC % 0, Sodium 140, Potassium 3.9, Chloride 105, Carbon Dioxide 31.0, Anion Gap 4 L, BUN 8, Creatinine 0.71, Estim Creat Clear Calc 107.34, Est GFR (MDRD) Af Amer 143, Est GFR (MDRD) Non-Af 119, BUN/Creatinine Ratio 11.3, Glucose 95, Calcium 9.2, Troponin I High Sens 8 Micro: Microbiology 05/17/24 16:02 Mucosa - Nose SARS-CoV-2, Influenza & RSV (PCR) - Final Imaging Radiology Impression Chest X-Ray 05/17/24 16:05 IMPRESSION: Chronic interstitial and emphysematous changes with focal scarring in left lower lobe Discoid atelectasis at left base which is new finding since prior study.. Electronically Signed: Reji Camilo MD at 16:44 EST Reading Location ID and State: [facility] / [place] Tel , Service support , Assessment & Plan Assessment/Plan (1) COPD exacerbation: (2) Hypoxemia: PLAN: Plan Patient is a 64-year-old male who presented [facility] ED on 05/17/2024 with worsening shortness of breath. 1. COPD exacerbation with hypoxia, history of nocturnal hypoxia ? Admit under inpatient status to [facility]. Suspect fairly mild COPD exacerbation. Wears 3 L nasal cannula at night and reports intermittently wearing it during the day at home though it is not prescribed to be worn during the day. Chest x-ray with no concerning findings and procalcitonin normal, low concern for concomitant pneumonia. Will treat with IV Solu-Medrol and scheduled DuoNebs for now. Will hold on any antibiotics. Wean supplemental oxygen as able. Will likely need home oxygen testing prior to discharge. Continue home long-acting inhaler. 2. Hypertension ? Mildly hypertensive in the ED suspect largely due to COPD exacerbation. Continue home amlodipine. 3. Tobacco abuse ? Reports only smoking 3 to 4 cigarettes daily at this time. Nicotine patch ordered per patient request. Encouraged cessation on discharge. 4. BPH with obstructive symptoms ? Continue home Flomax. 5. GERD ? Continue home PPI. DVT prophylaxis: Lovenox CODE STATUS: Full code, verified Expected disposition: Home, 2 to 3 days Total clinical time spent by myself addressing the patient's medical issues, reviewing all the data, and collaborating with patient's care team: 55 minutes. Charges/Coding Visit Charges Inpatient E&M: 92991 Init Hosp L2
[2024-05-17] MEDS: Ceftriaxone 1 GM/50 ML BAG IV (18:43)
[2024-05-17 19:07] LABS: Procalcitonin 0.04 ng/mL (0.00-0.09)
[2024-05-17] MEDS: Azithromycin 500 MG in Dextrose 5%-Water (250mL Bag) 250 ML 250 MG IV (19:28)
[2024-05-17] MEDS: Acetaminophen 325 MG Tablet 650 MG PO (22:23)
[2024-05-17] MEDS: cycloBENZAPRine HCl 10 MG Tablet PO (23:10)
[2024-05-18] VITALS (9 sets, daily range): BP systolic 117–151; BP diastolic 87–91; PULSE 100–111; RESP 18–20; TEMP 36.6–36.7; O2SAT 85–96
[2024-05-18 05:38] LABS: Hematocrit 46.1 % (40-54); Hemoglobin 14.8 g/dL (13.0-16.5); Mean Corp Hgb Conc 32.1 g/dL (32-36); Mean Corpuscular Hgb 30.5 pg (27.0-32.0); Mean Corpuscular Volume 94.9 fL (80-94); Mean Platelet Vol. 9.5 fl (6.2-12.0); Platelet Count 271 K/mm3 (150-450); RBC Distribution Width CV 12.6 % (11.6-14.6); RBC Distribution Width SD 44.6 fl (35.1-43.9); Red Blood Count 4.86 M/mm3 (4.6-6.2); White Blood Count 9.5 K/mm3 (4.4-11.0)
[2024-05-18] MEDS: Acetaminophen 325 MG Tablet 650 MG PO (05:50)
[2024-05-18] MEDS: 0.9% Saline Lock 10 ML Syringe IV ×2 (05:51→14:09)
[2024-05-18] MEDS: NYSTATIN 500,000 UNIT/5 ML UDC 500000 UNIT PO ×2 (05:51→14:09)
[2024-05-18 06:11] LABS: Anion Gap 6 (5-15); BUN 14 mg/dL (7-18); BUN/Creat Ratio 14.3 RATIO (10-20); Calcium,Total 9.2 mg/dL (8.5-10.1); Chloride 104 mmol/L (98-107); Creatinine, Serum 0.98 mg/dL (0.70-1.30); EST Glomerular Filtration Rate 82 mL/min (>60); Est Glom Filt Rate - Afr Amer 99 mL/min (>60); Estimated Creatinine Clearance 73.67 ml/min; Glucose 258 mg/dL (74-106); Potassium 3.8 mmol/L (3.5-5.1); Sodium Level 139 mmol/L (136-145)
--- NOTE | 2024-05-18 07:11 | PN.HOSP_ITS ---
Reason for Visit Reason for Visit: Diagnoses Chronic obstructive pulmonary disease with (acute) exacerbation (05/17/24) Hypoxemia (05/17/24) Subjective Subjective Feeling better. States that he has lecturing in his basement which is a condenser that he had from a friend who is since . The tubing went takes him to do stairs and he goes up the stairs with the oxygen off and then becomes short of breath and anxious. Objective Data Objective Data Vital Signs: Vital Signs Temp Pulse Resp BP Pulse Ox O2 Del Method O2 Flow Rate 36.6 C 103 H 18 134/90 H 95 Nasal Cannula 2 05/18/24 05:47 05/18/24 05:47 05/18/24 05:47 05/18/24 05:47 05/18/24 05:47 05/18/24 05:47 05/18/24 05:47 Oxygen Flow Rate (L/min) 2 Oxygen Delivery Method Nasal Cannula Weight: 68.4 kg Body Mass Index (BMI) 19.8 Intake & Output: Intake and Output for Last 24 Hours 05/16/24 05/17/24 05/18/24 23:59 23:59 23:59 Intake Total 605 / 605 200 / 200 Balance 605 / 605 200 / 200 Lab / Micro Data 05/18/24 04:12 05/18/24 04:12 Labs: Laboratory Results - last 24 hr 05/17/24 15:28: WBC 9.0, RBC 5.15, Hgb 15.5, Hct 49.6, MCV 96.3 H, MCH 30.1, M CHC 31.3 L, RDW Std Deviation 45.3 H, RDW Coeff of Brian 12.6, Plt Count 280, MPV 9.4, Immature Gran % (Auto) 0.200, Neut % (Auto) 65.6, Lymph % (Auto) 19.6, [place] % (Auto) 8.1, Eos % (Auto) 5.5 H, Baso % (Auto) 1.0, Absolute Neuts (auto) 5.9, Absolute Lymphs (auto) 1.77, Nucleated RBC % 0, Sodium 140, Potassium 3.9, Chloride 105, Carbon Dioxide 31.0, Anion Gap 4 L, BUN 8, Creatinine 0.71, Estim Creat Clear Calc 107.34, Est GFR (MDRD) Af Amer 143, Est GFR (MDRD) Non-Af 119, BUN/Creatinine Ratio 11.3, Glucose 95, Calcium 9.2, Troponin I High Sens 8 05/17/24 18:24: Procalcitonin 0.04 05/18/24 04:12: WBC 9.5, RBC 4.86, Hgb 14.8, Hct 46.1, MCV 94.9 H, MCH 30.5, MCHC 32.1, RDW Std Deviation 44.6 H, RDW Coeff of Brian 12.6, Plt Count 271, MPV 9.5, Sodium 139, Potassium 3.8, Chloride 104, Carbon Dioxide 29.0, Anion Gap 6, BUN 14, Creatinine 0.98, Estim Creat Clear Calc 73.67, Est GFR (MDRD) Af Amer 99, Est GFR (MDRD) Non-Af 82, BUN/Creatinine Ratio 14.3, Glucose 258 H, Calcium 9.2 Micro: Microbiology 05/17/24 16:02 Mucosa - Nose SARS-CoV-2, Influenza & RSV (PCR) - Final Radiography Diagnostic Testing: Radiology Impression Chest X-Ray 05/17/24 16:05 IMPRESSION: Chronic interstitial and emphysematous changes with focal scarring in left lower lobe Discoid atelectasis at left base which is new finding since prior study.. Electronically Signed: Reji Camilo MD at 16:44 EST Reading Location ID and State: [facility] / [place] Tel , Service support , Physical Exam Const alert and no apparent distress HEENT head/scalp atraumatic and moist oral mucous membranes Neck no lymphadenopathy Resp normal respiratory effort, no retractions, no use of accessory muscles and clear to auscultation bilaterally Cardio regular rate, regular rhythm, S1 normal heart sound and S2 normal heart sound Assessment & Plan Assessment/Plan (1) COPD exacerbation: (2) Hypoxemia: PLAN: Plan COPD exacerbation with hypoxia, history of nocturnal hypoxia * Continue BDs and methylpred. Change to prednisone. * home oxygen eval. patient has oxygen at home but he is never been set up himself. Patient states that when he goes upstairs, without his oxygen, he is anxious and short of breath. Though he does not check his oxygen so is unclear if he is actually hypoxic though I highly suspect he probably is. Will check home oxygen evaluation and patient will likely require oxygen. Chronic conditions: * Hypertension? Mildly hypertensive in the ED suspect largely due to COPD exacerbation. Continue home amlodipine. * Tobacco abuse? Reports only smoking 3 to 4 cigarettes daily at this time. Nicotine patch ordered per patient request. Encouraged cessation on discharge. * BPH with obstructive symptoms Continue home Flomax. * GERD? Continue home PPI. DVT prophylaxis: enoxaparin CODE STATUS: Full code, verified Expected disposition: Home patient improved much faster than initially anticipated.
[2024-05-18] MEDS: Ipratropium/Albuterol Sulfate 3 ML AMPUL.NEB INHALATION ×3 (07:22→15:17)
--- NOTE | 2024-05-18 09:37 | PCM.DC.SUM ---
Providers Date of Admission: 05/17/24 Primary Care Physician: Iker Blackwell MD Reason For Visit: COPD EXACERBATION W/ HYPOXIA Diagnosis Discharge Diagnosis (1) COPD exacerbation: Status: Chronic Code(s): J44.1 - Chronic obstructive pulmonary disease with (acute) exacerbation (2) Hypoxemia: Status: Acute Code(s): R09.02 - Hypoxemia Plan COPD exacerbation with hypoxia, history of nocturnal hypoxia Continue BDs and methylpred. Change to prednisone. home oxygen eval. patient has oxygen at home but he is never been set up himself. Patient states that when he goes upstairs, without his oxygen, he is anxious and short of breath. Though he does not check his oxygen so is unclear if he is actually hypoxic though I highly suspect he probably is. Will check home oxygen evaluation and patient will likely require oxygen. Chronic conditions: Hypertension? Mildly hypertensive in the ED suspect largely due to COPD exacerbation. Continue home amlodipine. Tobacco abuse? Reports only smoking 3 to 4 cigarettes daily at this time. Nicotine patch ordered per patient request. Encouraged cessation on discharge. BPH with obstructive symptoms Continue home Flomax. GERD? Continue home PPI. DVT prophylaxis: enoxaparin CODE STATUS: Full code, verified Expected disposition: Home patient improved much faster than initially anticipated. Medications at Discharge Home Medications albuterol sulfate 90 mcg/actuation aerosol inhaler (Ventolin HFA) 1 - 2 puff inhalation Q4H PRN PRN Wheezing #1 ea 01/02/24 fluticasone fur. 100 mcg-umeclid 62.5 mcg-vilant 25 mcg inhalat.powder (Trelegy Ellipta) 1 ea inhalation DAILY breathing 01/21/24 ipratropium 0.5 mg-albuterol 3 mg (2.5 mg base)/3 mL nebulization soln 1.5 ml inhalation Q8H PRN copd 01/21/24 loratadine 10 mg tablet (Allergy Relief (loratadine)) 10 mg PO Q24H PRN allergy symptoms 01/21/24 omeprazole 20 mg capsule,delayed release 20 mg PO DAILY reflux 01/21/24 tamsulosin 0.4 mg capsule 0.4 mg PO DAILY prostate 01/21/24 amlodipine 2.5 mg tablet (Norvasc) 2.5 mg PO DAILY bp #30 tabs 01/22/24 diphenhydramine HCl 25 mg capsule 50 mg (2 x 25 mg) PO TID PRN allergic reaction #20 caps 01/22/24 cyclobenzaprine 10 mg tablet 10 mg PO BID spasm 05/17/24 dextromethorphan-guaifenesin 30 mg-600 mg tablet extended [id number] hr (Mucinex DM) 1 tab PO BID PRN coughing fits #10 tabs 05/18/24 nystatin 100,000 unit/mL oral suspension 500,000 unit (5 mL) PO 4X/DAY 7 days #140 mL 05/18/24 prednisone 20 mg tablet 40 mg (2 x 20 mg) PO DAILY #10 tabs 05/18/24 Hospital Course Operations None Procedures None Summary of Care Provided Minutes Spent on Discharge: 32 Hospital Course: Patient presents with COPD exacerbation. Patient was using oxygen at home but was using someone else's condenser. He would take the oxygen off to go upstairs and will get short of breath and then anxious. Patient will be going home with oxygen 2 L continuous. Patient has been having some paroxysmal coughing fits. Patient will be discharged with prednisone, and guaifenesin with dextromethorphan to help him with his coughing fits. Patient advised to follow-up with pulmonology and will be following up with one of the Dr. Combs in the area for pulmonology. Weight / BMI Weight Weight: 68.4 kg Body Mass Index (BMI) 19.8 ABG / Lab / Microbiology Data 05/18/24 04:12 05/18/24 04:12 Laboratory: Laboratory Results - last 24 hr 05/17/24 15:28: WBC 9.0, RBC 5.15, Hgb 15.5, Hct 49.6, MCV 96.3 H, MCH 30.1, MCHC 31.3 L, RDW Std Deviation 45.3 H, RDW Coeff of Brian 12.6, Plt Count 280, MPV 9.4, Immature Gran % (Auto) 0.200, Neut % (Auto) 65.6, Lymph % (Auto) 19.6, [place] % (Auto) 8.1, Eos % (Auto) 5.5 H, Baso % (Auto) 1.0, Absolute Neuts (auto) 5.9, Absolute Lymphs (auto) 1.77, Nucleated RBC % 0, Sodium 140, Potassium 3.9, Chloride 105, Carbon Dioxide 31.0, Anion Gap 4 L, BUN 8, Creatinine 0.71, Estim Creat Clear Calc 107.34, Est GFR (MDRD) Af Amer 143, Est GFR (MDRD) Non-Af 119, BUN/Creatinine Ratio 11.3, Glucose 95, Calcium 9.2, Troponin I High Sens 8 05/17/24 18:24: Procalcitonin 0.04 05/18/24 04:12: WBC 9.5, RBC 4.86, Hgb 14.8, Hct 46.1, MCV 94.9 H, MCH 30.5, MCHC 32.1, RDW Std Deviation 44.6 H, RDW Coeff of Brian 12.6, Plt Count 271, MPV 9.5, Sodium 139, Potassium 3.8, Chloride 104, Carbon Dioxide 29.0, Anion Gap 6, BUN 14, Creatinine 0.98, Estim Creat Clear Calc 73.67, Est GFR (MDRD) Af Amer 99, Est GFR (MDRD) Non-Af 82, BUN/Creatinine Ratio 14.3, Glucose 258 H, Calcium 9.2 Microbiology: Microbiology 05/17/24 16:02 Mucosa - Nose SARS-CoV-2, Influenza & RSV (PCR) - Final Radiography Diagnostic Testing: Radiology Impression Chest X-Ray 05/17/24 16:05 IMPRESSION: Chronic interstitial and emphysematous changes with focal scarring in left lower lobe Discoid atelectasis at left base which is new finding since prior study.. Electronically Signed: Reji Camilo MD at 16:44 EST Reading Location ID and State: [facility] / [place] Tel , Service support , D/C Instructions Discharge Diet: No restrictions DC O2, CPAP, BIPAP Needs RN Home O2 Qualification: Home O2 Qualification: Is the patient on home oxygen Yes 05/18/24 11:55 Home O2 Qualification: AT REST 1-Pulse Ox at rest 86 05/18/24 11:55 1- Oxygen flow rate at rest 2 05/18/24 11:55 2-Pulse Ox at rest 89 05/18/24 11:55 2- Oxygen flow rate at rest 3 05/18/24 11:55 Home O2 Qualification: WITH AMBULATION 1- Pulse Ox with ambulation 93 05/18/24 11:55 1- Oxygen Flow Rate with 4 05/18/24 11:55 ambulation Additional Home O2 Discharge instructions: Yes Type of respiratory needs?: Oxygen Oxygen frequency: Continuous Continuous oxygen liters per minute: 2 DC home with Oxygen: Yes Home O2 MD Review: I have reviewed the oxygen testing, and the patient qualifies for home oxygen equipment and portability. The patient is mobile in the home and the community. Meaningful Use Info Meaningful Use Meaningful Use Diagnoses (Choose all that apply): None applicable Ischemic Stroke Statin Dosing Therapy Reference: STATIN DOSE THERAPY REFERENCE: * Patients > 75 years receive moderate or high dose statin therapy. * Patients 75 years or YOUNGER should receive HIGH intensity statin dose unless contraindicated. You will be required to document reason for non-treatment if statin daily dose does not meet guidelines. HIGH DOSE STATIN THERAPY DAILY Atorvastatin > than or = to 40 mg Rosuvastatin > than or = to 20 mg Amlodipine + Atorvastatin > than or = to 2.5/40 mg Ezetimibe + Simvastatin 10/80 mg Simvastatin 80mg Discharge Plan Admission Admit Date/Time: 05/17/24 17:16 Primary Reason for Your Visit: COPD exacerbation Attending Provider: Elijah Guerrero Primary Care Provider: Iker Blackwell Consulting Providers: Nicolas Hall Instructions Additional Instructions / Restrictions: Follow up with pulmonology. Discharge Orders/Prescriptions Prescriptions: New nystatin 100,000 unit/mL Suspension 500,000 unit PO 4X/DAY 7 Days Qty: 140 0RF prednisone 20 mg tablet 40 mg PO DAILY Qty: 10 0RF Mucinex DM 30-600 mg Tablet Extended Release 12 Hr 1 tab PO BID PRN (Reason: coughing fits) Qty: 10 0RF Continued cyclobenzaprine 10 mg tablet 10 mg PO BID albuterol sulfate [Ventolin HFA] 90 mcg/actuation HFA aerosol inhaler 1 - 2 puff inhalation Q4H PRN PRN (Reason: Wheezing) Qty: 1 0RF ipratropium-albuterol 0.5 mg-3 mg(2.5 mg base)/3 mL solution for nebulization 1.5 ml inhalation Q8H PRN (Reason: copd) loratadine [Allergy Relief (loratadine)] 10 mg tablet 10 mg PO Q24H PRN (Reason: allergy symptoms) Chary Kenney 100-62.5-25 mcg blister with device 1 ea inhalation DAILY tamsulosin 0.4 mg capsule 0.4 mg PO DAILY omeprazole 20 mg capsule,delayed release(DR/EC) 20 mg PO DAILY diphenhydramine HCl 25 mg capsule 50 mg PO TID PRN (Reason: allergic reaction) Qty: 20 0RF amlodipine [Norvasc] 2.5 mg tablet 2.5 mg PO DAILY Qty: 30 0RF Referrals / Follow Up: Iker Blackwell MD [Primary Care Provider] - Disposition Disposition (needs filled in before D/C Order can be placed): Home, Self Care Charges/Coding Visit Charges Inpatient E&M: 22788 Disch Hosp >30min
[2024-05-18] MEDS: cycloBENZAPRine HCl 10 MG Tablet PO (10:03)
[2024-05-18] MEDS: FLU VACC 2024-25(6MOS UP)/PF 45 MCG/0.5 ML SYRINGE IM (10:03)
[2024-05-18] MEDS: Tamsulosin HCl 0.4 MG Capsule PO (10:03)
[2024-05-18] MEDS: amLODIPine 2.5 MG Tablet PO (10:06)
[2024-05-18] MEDS: Pantoprazole Sodium 20 MG Tablet PO (10:07)
--- NOTE | 2024-05-18 11:15 | CASEMGMT ---
Addendum entered by Betina Man 05/18/24 15:29: 11:15 AM: While RN CM in room talking w/pt he had coughing spell (was just finishing breathing tx when RN CM entered room). Pt reported feeling lightheaded and states like he felt unable to catch his breath after the coughing spell. He states he has been doing this and it scares him when this happens and he does feel like he is ready to discharge home today. Dr Guerrero made aware. Original Note: RN CM BEATER OUT CM?to room to meet with patient for initial transition planning/care coordination assessment. RN CM?introduced self and role at [facility]. Pt voices understanding and consents to assessment?at this time. Pt resting in bed in no distress at this time. Pt is A/O at this time and answers all questions appropriately. Care providers, pharmacy, and demographics verified/updated at this time. Strata:?4 PCP: Dr Blackwell Specialists: none. Pt states he would like to get established w/a contracts attorney. Preferred Pharmacy: [facility] @ discharge. Otherwise, goes to [facility]. Insurance: [employer] Prescription Benefit: Yes LNOK: Daughter, Zoe. Living Arrangements: Lives w/his daughter and son-in-law in a one-story home w/basement. He states he lives in the basement. He states he does have difficulty with the stairs d/t SOB and fatigue, stating he has to stop and rest at times. He reports being independent w/ADL's and IADL's and manages his own medications. He states he is trying to get into [address] 8 housing, but states does not have transportation to drop off the paperwork. Transportation:?Pt does not drive. His daughter can drive, but does not like to, stating she has schizophrenia and anxiety and she doesn't drive unless necessary. Also, they only have one vehicle and son-in-law takes the vehicle to work and so often she does not have a vehicle to drive. He has used his insurance for transportation in the past, but states he has to often call days in advance, so does not use them often. DME: Pt has a nebulizer and pulse ox. He states he had oxygen prescribed in the past, but it was about 5 years ago after being discharged from a hospital in [place] and they have picked up all of the oxygen equipment. He has a concentrator that his friend gave him that he uses mostly @ HS, but it was not prescribed to him. He states Dr Blackwell is aware he has been using it. HHC/SNF: No hx of either. Discussed HHC and CCN. Pt declines wanting either service, stating his daughter does not like people coming into her home. Pt states he was doing OP therapy before he moved to this area for leg strengthening and he would like to do this again after he discharges. RAY Olea CM, made aware. Pt wishes to return home and states has no further concerns with going home at time of discharge. CM?to follow for home oxygen needs and any further discharge planning/needs. Pt voices no further concerns/needs at this time. Advised pt to ask for CM?if any further questions/concerns/needs arise. Voices understanding. PLAN: Home CM to follow for pulmonology appt. Follow for possible home O2 and OP therapy Rigo PAREKH RN, CM
--- NOTE | 2024-05-18 12:02 | CASEMGMT ---
Addendum entered by Emmie Ferguson 05/18/24 17:24: RAY AL into pt room, pt aware of make, model of car and name of driver manager. Pt did receive text with same information. Addendum entered by Emmie Ferguson 05/18/24 17:18: TC to pt transportation via medicaid, a lyft was set up for in 15 min at main entrance. Jose will be in a white chevy equinox. TC to pt nurse, who is aware and states pt just told her that as he received a text. Addendum entered by Emmie Ferguson 05/18/24 17:04: RAY AL into pt room, pt is aware that he requires 4L of oxygen with exertion. Pt has a pox. Discussed therapy with pt. It sounds like pt was going to a pulmonary rehab in [place]. Discussed with pt that when he follows up with , if he feels he needs therapy, he can request it from him. Pt states he does not have transportation home. He states his dtr is at a concert for a child. Pt is aware of his insurance transportation. RAY AL to set this up. Discussed with pt that Dr. Hampton does not have availability for new pts for some time but Dr. Marisabel Bergeron has openings as early as beginning of June. Pt is aware that the office is closed currently so this cannot be set up. SW made RAY AL aware that pt was illiterate and is teaching himself how to read. Discussed with pt if he chooses Dr. Marisabel Bergeron, the hospital van cannot transport him. Pt states that he has the number for the insurance in his phone to use his insurance transportation and he will do this. He also states that if the RN CM writes the name and phone number on his dc instructions he will be able to make the appt himself. Pt denies further needs at this time. Addendum entered by Emmie Ferguson 05/18/24 16:49: Nurse retested pt for oxygen as pt does not have oxygen at home. Pt requires 4L with exertion only. Updated hospitalist. Final testing and order sent to [facility] via [employer]. Spoke with Omaira as dc summary sent prior to 4pm. Portable tank has been delivered to the room. Addendum entered by Emmie Ferguson 05/18/24 15:43: Noted pt has 6 clicks of 24, no therapy ordered at this time. Original Note: RAY AL received handoff and Dr. Hampton does not have pt appts until November. TC to Dr. Bergeron through [facility], she has openings at beginning of June. RAY AL to discuss with pt as he will not be able to have the hospital van take him to this appt.
--- NOTE | 2024-05-18 13:52 | NURSING ---
Episode of dizziness at conclusion of Home o2 trial. Pt states that happens at home and he stops to rest until it passes. VSS
--- NOTE | 2024-05-18 16:10 | CASEMGMT ---
Social Work- SW met with pt to conduct SDOH assessment. Pt lives with his daughter in the basement, paying $650 rent and utilities. Pt receives $960 per month. Pt receives food stamps. Pt has transportation issues and is working to secure section 8 housing. Pt reports that transportation is often a barrier for him. Pt shared that he has been sober for 7 years. Pt shared stories of hic childhood and life. SW provided transportation list, [facility] transportation, [employer] transport, [facility], [facility], information on [facility] and [facility]. Pt open to referral for [facility].. SW completed. Pt states no additional needs at this time. KIYA Schafer
== END 2024-05-18 17:43 | disposition home or self-care (01) | DRG 140 ==
LOC: ED 17:01 → MS3 05-18 06:50
PROVIDERS: Admitting Provider Hospitalist; Emergency Provider Emergency Medicine; PCP Family Medicine
DX: J44.1 Chronic obstructive pulmonary disease with (acute) exacerbation (principal); N13.8 Other obstructive and reflux uropathy; I10 Essential (primary) hypertension; F17.210 Nicotine dependence, cigarettes, uncomplicated; K21.9 Gastro-esophageal reflux disease without esophagitis; I25.10 Atherosclerotic heart disease of native coronary artery without angina pectoris; N40.1 Benign prostatic hyperplasia with lower urinary tract symptoms; Z79.51 Long term (current) use of inhaled steroids; Z79.899 Other long term (current) drug therapy; Z23 Encounter for immunization
CPT/HCPCS: 36415; 71045; 80048; 84145; 84484; 85025; 85027; 87040; 87070; 87077; 87184; 87186; 87205; 87631; 90656; 93005; 94640; 96365; 96366; 96367; 96375; 96376; 99221; 99285; A4216; G0378

== ENCOUNTER 2024-05-20 19:18 | Observation (INO) | payer MEDICAID, SELFPAY ==
[2024-05-20] VITALS (10 sets, daily range): BP systolic 118–159; BP diastolic 85–102; PULSE 101–118; RESP 20–26; TEMP 36.7–36.9; O2SAT 94–100; BMI 22.4; BMI 20.2
--- NOTE | 2024-05-20 19:35 | EKG12_ITS ---
Test Reason : CP Blood Pressure : */* mmHG Vent. Rate : 117 BPM Atrial Rate : 117 BPM P-R Int : 134 ms QRS Dur : 86 ms QT Int : 296 ms P-R-T Axes : 80 78 70 degrees QTcB Int : 412 ms Sinus tachycardia Biatrial enlargement Pulmonary disease pattern Abnormal ECG Confirmed by KARL BOYER, EBER ([id number]), copy editor YENNY NUNEZ ([id number]) on 05/25/2024 1:34:47 P M Referred By: BB Confirmed By: EBER BARAJAS MD
--- NOTE | 2024-05-20 19:38 | EDS_ITS ---
HPI History of Present Illness Chief Complaint: Shortness of Breath Informant: patient and EMS Onset/Context/Timing Onset: Today Context: gradual and onset (After he got a shower tonight) Timing: Continuous Quality: Positive for Wheezing Current Severity: Severe Maximum Severity: Severe Worsened by: Nothing Relieved by: Nothing; Not Relieved By Albuterol Associated Symptoms Negative for cough Chest Pain: Positive for Tightness Narrative Narrative: 64-year-old male with COPD was just discharged from this hospital yesterday, admitted for COPD exacerbation, he received his home oxygen today which he has been using, he smokes but not a lot according to him, then he got a shower and after he got his shower he really started getting short of breath despite trying a breathing treatment and resting to the point where he called EMS. [facility] Medical History History of substance use History of alcohol abuse Smoker Emphysema lung Asthma COPD (chronic obstructive pulmonary disease) Coronary artery disease Hypertension Migraines TIA (transient ischemic attack) History of tobacco abuse Adverse reaction to REEMA inhibitor drug History of COPD History of hypertension Home Medications ?Medication ?Instructions ?Recorded ?Last Taken ?Type albuterol sulfate 90 mcg/actuation 1 - 2 puff inhalation Q4H PRN PRN 01/02/24 Unknown Rx aerosol inhaler (Ventolin HFA) Wheezing #1 ea fluticasone fur. 100 mcg-umeclid 1 ea inhalation DAILY breathing 01/21/24 Unknown History 62.5 mcg-vilant 25 mcg inhalat.powder (Trelegy Ellipta) ipratropium 0.5 mg-albuterol 3 mg 1.5 ml inhalation Q8H PRN copd 01/21/24 Unknown History (2.5 mg base)/3 mL nebulization soln loratadine 10 mg tablet (Allergy 10 mg PO Q24H PRN allergy symptoms 01/21/24 Unknown History Relief (loratadine)) omeprazole 20 mg capsule,delayed 20 mg PO DAILY reflux 01/21/24 Unknown History release tamsulosin 0.4 mg capsule 0.4 mg PO DAILY prostate 01/21/24 Unknown History amlodipine 2.5 mg tablet (Norvasc) 2.5 mg PO DAILY bp #30 tabs 01/22/24 Unknown Rx diphenhydramine HCl 25 mg capsule 50 mg (2 x 25 mg) PO TID PRN 01/22/24 Unknown Rx allergic reaction #20 caps cyclobenzaprine 10 mg tablet 10 mg PO BID spasm 05/17/24 Unknown History dextromethorphan-guaifenesin 30 1 tab PO Q12H PRN cough #14 tabs 05/18/24 Unknown Rx mg-600 mg tablet extended hr (Mucus DM) nystatin 100,000 unit/mL oral 500,000 unit (5 mL) PO 4X/DAY 7 05/18/24 Unknown Rx suspension days #140 mL prednisone 20 mg tablet 40 mg (2 x 20 mg) PO DAILY #10 tabs 05/18/24 Unknown Rx Allergy/AdvReac Type Severity Reaction Status Date / Time lisinopril Allergy Severe Angioedema Verified 05/17/24 15:23 codeine Allergy Mild Itching Verified 05/17/24 15:23 Social History Smoking Status: Light Smoker (<10/day) ROS ROS ED Constitutional Constitutional ED: Denies chills or fever(s) Eyes Eyes: Denies change in vision or diplopia ENT ENT ED: Denies rhinorrhea or sore throat Cardiovascular Cardiovascular: Denies leg edema or palpitations Respiratory/Chest Respiratory/Chest: Reports as per HPI, chest tightness and dyspnea; Denies cough Gastrointestinal Gastrointestinal: Denies abdominal pain, diarrhea, nausea or vomiting Genitourinary Genitourinary ED: Denies dysuria or hematuria Musculoskeletal Musculoskeletal: Denies back pain or neck pain Integumentary Denies abscess or rash Neurologic Neurologic: Denies headache(s), paresthesias or weakness Psychiatric Psychiatric: Reports anxiety EXAM Physical Exam Const Vital Signs: 05/20/24 19:19 05/20/24 19:35 05/20/24 19:36 Temperature 98.2 F 98.2 F Temperature Source Oral Oral Pulse Rate 118 H 113 H Respiratory Rate 24 H 24 H Respiratory Effort Respiratory Depth Respiratory Pattern Blood Pressure 159/102 H 121/89 H Blood Pressure Mean 121 99 Pulse Ox 94 98 98 Oxygen Delivery Method Nasal Cannula Nasal Cannula Nasal Cannula Oxygen Flow Rate (L/min) 5 5 5 05/20/24 19:38 05/20/24 19:50 05/20/24 20:31 Temperature Temperature Source Pulse Rate 107 H 110 H Respiratory Rate 26 H 22 H Respiratory Effort Short of Breath Labored Accessory Muscle Use Respiratory Depth Deep Respiratory Pattern Tachypnea Tachypnea Blood Pressure 126/85 H Blood Pressure Mean 98 Pulse Ox 97 Oxygen Delivery Method Nasal Cannula Nasal Cannula Oxygen Flow Rate (L/min) 5 2.5 05/20/24 21:20 Temperature Temperature Source Pulse Rate 105 H Respiratory Rate 22 H Respiratory Effort Respiratory Depth Respiratory Pattern Blood Pressure 118/92 H Blood Pressure Mean 100 Pulse Ox 98 Oxygen Delivery Method Nasal Cannula Oxygen Flow Rate (L/min) 2.5 Positive well nourished and well developed Constitutional Narrative: Mild-mod respiratory distress General Appearance ED: well developed HEENT Reports moist mucous membranes normocephalic and atraumatic Eyes PERRL and EOMs intact bilaterally Neck full ROM, no lymphadenopathy, supple, no meningeal signs and no JVD Resp Resp Narrative: Diffusely diminished, and expiratory wheezes, sounds tight. Mild-moderate respiratory distress, speaking in 3-5 word sentences. Breath sounds are equal bilaterally. Cardio regular rate, regular rhythm and no murmurs GI non-tender and non-distended Auscultation: normoactive bowel sounds Palpation: soft Back/Spine no CVA tenderness General Back: other FROM Extremity normal to inspection General Extremety ED: Negative for edema, pulses abnormal or tenderness General Extremity: Negative for edema or pulses abnormal Neuro oriented x3, CN's II-XII intact bilaterally and no sensory deficits noted Sensorium / Orientation: awake and alert Motor Exam: strength 5/5 throughout Psych mental status grossly normal Skin no rashes or lesions noted and no wounds MDM MDM MDM Narrative Medical decision making narrative: Differential includes pneumothorax, cardiac etiologies, pulmonary edema, COPD flareup due to smoking or humidity from hot shower, or simply failing outpatient treatment from his recent exacerbation. His EKG shows nonspecific baseline waviness due to being a respiratory distress and chest wall movement but nothing acute. 1 view chest x-ray my interpretation shows nothing differ compared with his recent 1, no pneumonia or pneumothorax. Labs are unremarkable including troponin. Was treated with a couple nebulizer treatments and subcutaneous terbutaline, this helped and he coughed up a couple of chunks of sputum without blood, but he was given a total of 4 nebulizer treatments and although he seems to be less tight he is still dyspneic at rest and apprehensive about being discharged. He lives alone. Lab Data Attestation: I reviewed the patient's lab results. Labs: Laboratory Results - last 24 hr 05/20/24 19:25 WBC 10.5 RBC 5.20 Hgb 16.0 Hct 49.3 MCV 94.8 H MCH 30.8 MCHC 32.5 RDW Std Deviation 45.9 H RDW Coeff of Brian 13.0 Plt Count 309 MPV 9.3 Immature Gran % (Auto) 0.400 Neut % (Auto) 69.3 Lymph % (Auto) 17.7 L [place] % (Auto) 8.6 Eos % (Auto) 3.1 Baso % (Auto) 0.9 Absolute Neuts (auto) 7.3 Absolute Lymphs (auto) 1.85 Nucleated RBC % 0 Sodium 141 Potassium 3.8 Chloride 103 Carbon Dioxide 35.0 H Anion Gap 3 L BUN 11 Creatinine 0.86 Estim Creat Clear Calc 94.88 Est GFR (MDRD) Af Amer 116 Est GFR (MDRD) Non-Af 96 BUN/Creatinine Ratio 12.9 Glucose 108 H Calcium 8.6 Troponin I High Sens 6 Radiography Diagnostic Testing: Clinical Impression(s) from Imaging Studies Chest X-Ray 05/20/24 20:25 IMPRESSION: Patchy ill-defined pulmonary opacities may be in part due to scarring, atelectasis, or perhaps superimposed pneumonia with similar appearance to prior examination. Additionally, diffuse interstitial prominence and hyperinflation suggesting underlying COPD. Electronically Signed: Surya Pedrito Sheriff at 20:46 EST , Rhythm Strip Rhythm Strip: Sinus Tach Rate: 115 Ectopy: None EKG Initial EKG: Attestation: I personally reviewed and interpreted this EKG as follows: Interpretation: No Acute Injury Pattern and Sinus Tachycardia Comments: Nml axis & intervals; nml EKG except for enlarged P waves Management Discussion w/another healthcare provider: Hospitalist Discharge Plan Dx/Rx/DC Orders Clinical Impression: Acute respiratory insufficiency, COPD exacerbation, Tobacco abuse Disposition Disposition: [facility]
[2024-05-20 19:50] LABS: Absolute Lymphocyte Count 1.85 X10^3/uL (0.83-4.51); Absolute Neutrophil Count 7.3 X10^3/uL (2.0-7.7); Basophil# 0.09 X10^3/uL; Basophil% 0.9 % (0-1); Eosinophil# 0.32 X10^3/uL; Eosinophils% 3.1 % (0-5); Hematocrit 49.3 % (40-54); Lymphocyte # 1.85 X10^3/ul (0.83-4.51); Lymphocyte % 17.7 % (19-41); Mean Corp Hgb Conc 32.5 g/dL (32-36); Mean Corpuscular Hgb 30.8 pg (27.0-32.0); Mean Corpuscular Volume 94.8 fL (80-94); Mean Platelet Vol. 9.3 fl (6.2-12.0); Monocyte% 8.6 % (0-10); NRBC Flagged by Analyzer 0 % (0-5); Neutrophil # 7.28 X10^3/uL (2.7-7.7); Neutrophil % 69.3 % (47-70); Platelet Count 309 K/mm3 (150-450); RBC Distribution Width SD 45.9 fl (35.1-43.9); White Blood Count 10.5 K/mm3 (4.4-11.0)
[2024-05-20] MEDS: Ipratropium/Albuterol Sulfate 3 ML AMPUL.NEB INHALATION (19:50)
[2024-05-20] MEDS: Albuterol 2.5 MG/3 ML VIAL.NEB. INHALATION ×3 (19:50→21:34)
[2024-05-20 20:14] LABS: Anion Gap 3 (5-15); BUN 11 mg/dL (7-18); BUN/Creat Ratio 12.9 RATIO (10-20); Calcium,Total 8.6 mg/dL (8.5-10.1); Chloride 103 mmol/L (98-107); Creatinine, Serum 0.86 mg/dL (0.70-1.30); EST Glomerular Filtration Rate 96 mL/min (>60); Est Glom Filt Rate - Afr Amer 116 mL/min (>60); Estimated Creatinine Clearance 94.88 ml/min; Glucose 108 mg/dL (74-106); Potassium 3.8 mmol/L (3.5-5.1); Sodium Level 141 mmol/L (136-145); Troponin-I HS 6 pg/mL (3.0-78.0)
--- NOTE | 2024-05-20 20:25 | RAD_ITS ---
EXAM: XR CHEST, 1 VIEW CLINICAL INDICATION: sob TECHNIQUE: Frontal view of the chest. COMPARISON: 05/17/2024 FINDINGS: LUNGS AND PLEURAL SPACES: Patchy ill-defined pulmonary opacities may be in part due to scarring, atelectasis, or perhaps superimposed pneumonia with similar appearance to prior examination. Additionally, diffuse interstitial prominence and hyperinflation suggesting underlying COPD. No pneumothorax. No effusion. HEART: No significant abnormality. Cardiac silhouette not enlarged. MEDIASTINUM: Central airways and mediastinal contour are unremarkable. BONES/JOINTS: No significant abnormality. No acute fracture. SOFT TISSUES: No significant abnormality. RAD/Chest 1 View (Portable) IMPRESSION: Patchy ill-defined pulmonary opacities may be in part due to scarring, atelectasis, or perhaps superimposed pneumonia with similar appearance to prior examination. Additionally, diffuse interstitial prominence and hyperinflation suggesting underlying COPD. Electronically Signed: Surya Sheriff DO at 20:46 EST ,
[2024-05-20] MEDS: Terbutaline 1 MG/ML Vial 0.25 MG SC (20:28)
--- NOTE | 2024-05-20 20:52 | CPS ---
[1950] x1 Albuterol given to ER as well
--- NOTE | 2024-05-20 21:50 | CPS ---
[2123] x2 Albuterol given to pt. in ER. Pre-Tx.: MW=004, RR=24 with diminished breath sounds. Post-Tx.: RV=440, RR=22 with clearer breath sounds. Pt. still diminished throughout lung sullivan.
--- NOTE | 2024-05-20 22:02 | PCM.HP.STD ---
HPI - General General Date of Admission: 05/20/24 Date of Service: 05/20/24 Chief Complaint: Dyspnea, cough, wheezing. HPI Narrative The patient is a 64 y/o M w/ PMHx: Hx prior polysubstance abuse (crack cocaine primarily) now clean, Hx former EtOH abuse now sober, Hx TIA, Asthma/COPD, HTN, BPH with obstructive pathology on flomax, GERD, Tobacco use, recent discharge 05/18/2024 following evaluation treatment of acute hypoxia with underlying COPD exacerbation discharged on 2 L nasal cannula with a burst of prednisone therapy who now Wade presents to the [facility] ED on 05/20/2024 with history of gradually worsening dyspnea following a shower on the evening of day of presentation with significant wheezing with no improvement with albuterol described as a chest tightness prompting eventual EMS given inability to improve his symptoms. He does admit to smoking since discharge but notes he only did 1-2 cigarettes and is trying to quit. Workup in the ED included T98.2, heart rate 118, BP 159/102, respiratory rate 24, 94% on 5 L nasal cannula with most recent oxygenation requirements noted to be 2 L nasal cannula on 05/18/2024 with most recent repeat vitals heart rate 105, BP 118/92, respiratory rate 22, 98% on 2.5 L nasal cannula, CBC with WBC 10.5, human 16, platelets 309 without marked shift, BNP not marked appearing aside from complex at 35, glucose 108, troponin 6, chest x-ray with patchy ill-defined pulmonary opacities partly due to scarring, atelectasis or possibly superimposed pneumonia with similar appearance however the prior exam additionally diffuse interstitial prominence and hyperinflation suggestive of underlying COPD. In the ED patient treated with nebulizer treatments as well as subcutaneous terbutaline with some improvement however in the ED he did have productive sputum but did have some improvement and seem to decrease his oxygenation requirement down near to what he did previously but he was apprehensive about discharge and notes living alone. [facility] Medical History History of substance use History of alcohol abuse Smoker Emphysema lung Asthma COPD (chronic obstructive pulmonary disease) Hypertension Migraines TIA (transient ischemic attack) Adverse reaction to REEMA inhibitor drug Home Medications ?Medication ?Instructions ?Recorded ?Last Taken ?Type albuterol sulfate 90 mcg/actuation 1 - 2 puff inhalation Q4H PRN PRN 01/02/24 Unknown Rx aerosol inhaler (Ventolin HFA) Wheezing #1 ea fluticasone fur. 100 mcg-umeclid 1 ea inhalation DAILY breathing 01/21/24 Unknown History 62.5 mcg-vilant 25 mcg inhalat.powder (Trelegy Ellipta) ipratropium 0.5 mg-albuterol 3 mg 1.5 ml inhalation Q8H PRN copd 01/21/24 Unknown History (2.5 mg base)/3 mL nebulization soln loratadine 10 mg tablet (Allergy 10 mg PO Q24H PRN allergy symptoms 01/21/24 Unknown History Relief (loratadine)) omeprazole 20 mg capsule,delayed 20 mg PO DAILY reflux 01/21/24 Unknown History release tamsulosin 0.4 mg capsule 0.4 mg PO DAILY prostate 01/21/24 Unknown History amlodipine 2.5 mg tablet (Norvasc) 2.5 mg PO DAILY bp #30 tabs 01/22/24 Unknown Rx diphenhydramine HCl 25 mg capsule 50 mg (2 x 25 mg) PO TID PRN 01/22/24 Unknown Rx allergic reaction #20 caps cyclobenzaprine 10 mg tablet 10 mg PO BID spasm 05/17/24 Unknown History dextromethorphan-guaifenesin 30 1 tab PO Q12H PRN cough #14 tabs 05/18/24 Unknown Rx mg-600 mg tablet extended hr (Mucus DM) nystatin 100,000 unit/mL oral 500,000 unit (5 mL) PO 4X/DAY 7 05/18/24 Unknown Rx suspension days #140 mL prednisone 20 mg tablet 40 mg (2 x 20 mg) PO DAILY #10 tabs 05/18/24 Unknown Rx Allergy/AdvReac Type Severity Reaction Status Date / Time lisinopril Allergy Severe Angioedema Verified 05/17/24 15:23 codeine Allergy Mild Itching Verified 05/17/24 15:23 Family History (Updated 05/20/24 @ 22:[address] Noelle Fleming MD) Mother Uterine cancer Father ETOH abuse Surgical History History of testicular surgery History of gastric surgery History of bilateral inguinal hernia repair History of total right hip replacement Social History (Updated 05/20/24 @ 22:[address] Noelle Fleming MD) household members: other details: His daugher and his grandson live with him. Smoking Status: Light Smoker (<10/day) how long ago did patient quit smoking: Patient prior smoked up to 2 ppd, started at age 9, down to 1 pack max/week quit status: considering quitting alcohol intake: former substance use type: former substance user ROS ROS Narrative Admission Review of Systems: CONSTITUTIONAL: No weight loss, fever, chills, + weakness or fatigue. HEENT: Eyes: No visual loss, blurred vision, double vision or yellow sclerae. Ears, Nose, Throat: No hearing loss, sneezing, congestion, runny nose or sore throat. SKIN: No rash or itching, lesions, wounds. CARDIOVASCULAR: No chest pain, chest pressure or chest discomfort, palpitations, edema, orthopnea, syncopal events. RESPIRATORY: + Dyspnea, cough with productive sputum, wheezing. No hemoptysis. GASTROINTESTINAL: No anorexia, nausea, vomiting or diarrhea, abdominal pain, melena, BRBPR. GENITOURINARY: No dysuria, frequency, urgency or retention. NEUROLOGICAL: No headache, dizziness, syncope, paralysis, ataxia, numbness or tingling in the extremities, focal weakness, change in bowel or bladder control, seizure. MUSCULOSKELETAL: + muscle, back pain, joint pain or stiffness. HEMATOLOGIC: No anemia. + Easy bleeding/bruising. LYMPHATICS: No enlarged nodes. No history of splenectomy. PSYCHIATRIC: No history of depression or anxiety. ENDOCRINOLOGIC: No reports of sweating, cold or heat intolerance. No polyuria or polydipsia. ALLERGIES: + History of angioedema, allergic rhinitis, asthma. Vital Signs Vital Signs Vital Signs: 05/20/24 19:19 05/20/24 19:35 05/20/24 19:36 Temperature 98.2 F 98.2 F Temperature Source Oral Oral Pulse Rate 118 H 113 H Respiratory Rate 24 H 24 H Respiratory Effort Respiratory Depth Respiratory Pattern Blood Pressure 159/102 H 121/89 H Blood Pressure Mean 121 99 Pulse Ox 94 98 98 Oxygen Delivery Method Nasal Cannula Nasal Cannula Nasal Cannula Oxygen Flow Rate (L/min) 5 5 5 05/20/24 19:38 05/20/24 19:50 05/20/24 20:31 Temperature Temperature Source Pulse Rate 107 H 110 H Respiratory Rate 26 H 22 H Respiratory Effort Short of Breath Labored Accessory Muscle Use Respiratory Depth Deep Respiratory Pattern Tachypnea Tachypnea Blood Pressure 126/85 H Blood Pressure Mean 98 Pulse Ox 97 Oxygen Delivery Method Nasal Cannula Nasal Cannula Oxygen Flow Rate (L/min) 5 2.5 05/20/24 21:20 Temperature Temperature Source Pulse Rate 105 H Respiratory Rate 22 H Respiratory Effort Respiratory Depth Respiratory Pattern Blood Pressure 118/92 H Blood Pressure Mean 100 Pulse Ox 98 Oxygen Delivery Method Nasal Cannula Oxygen Flow Rate (L/min) 2.5 Weight Weight: 170 lb 6.677 oz Body Mass Index (BMI) 22.4 Physical Exam Narrative Physical Examination: General: Awake, alert, oriented x 3 and cooperative, seated upright in bed in no apparent distress, notes feeling significantly improved since initial ED arrival. Skin: Normal color, normal turgor, no icterus, no cyanosis except occasional stage ecchymoses likely with recent lab draws. HEENT: AT/NC, EOMI, PERRLA, mildly dry MM, no carotid bruits or JVD noted. Lungs: Significantly diffusely diminished, greater bases, mildly increased respiratory rate but no distress, notes feeling significantly improved since initial ED arrival and aerosols as well as coughing, no rales or rhonchi, no marked wheezing either although had initially been upon ED arrival. Heart: Mildly tachycardic with regular rhythm; no gallop, rub audible. Abdomen: Soft, NTTP, ND, mildly hyperactive BS, no appreciated HSM. Extremities: No cyanosis, clubbing, or edema. Neurological: Patient awake, alert, oriented as noted, cognitive function intact; pupils equally reactive to light and accommodation, cranial nerves grossly ormal, moving all 4 extremities, no focal deficits, strength moderately globally decreased. Psychiatric: Affect appears fatigued but notes feeling improved, no acute evidence of depressive or anxiety feelings. Results Lab / Micro Data 05/20/24 19:25 05/20/24 19:25 Labs: Laboratory Results - last 24 hr 05/20/24 19:25: WBC 10.5, RBC 5.20, Hgb 16.0, Hct 49.3, MCV 94.8 H, MCH 30.8, MCHC 32.5, RDW Std Deviation 45.9 H, RDW Coeff of Brian 13.0, Plt Count 309, MPV 9.3, Immature Gran % (Auto) 0.400, Neut % (Auto) 69.3, Lymph % (Auto) 17.7 L, Morrow % (Auto) 8.6, Eos % (Auto) 3.1, Baso % (Auto) 0.9, Absolute Neuts (auto) 7.3, Absolute Lymphs (auto) 1.85, Nucleated RBC % 0, Sodium 141, Potassium 3.8, Chloride 103, Carbon Dioxide 35.0 H, Anion Gap 3 L, BUN 11, Creatinine 0.86, Estim Creat Clear Calc 94.88, Est GFR (MDRD) Af Amer 116, Est GFR (MDRD) Non-Af 96, BUN/Creatinine Ratio 12.9, Glucose 108 H, Calcium 8.6, Troponin I High Sens 6 Rhythm Strip Rhythm Strip: Sinus Tach Rate: 115 Ectopy: None Imaging Radiology Impression Chest X-Ray 05/20/24 20:25 IMPRESSION: Patchy ill-defined pulmonary opacities may be in part due to scarring, atelectasis, or perhaps superimposed pneumonia with similar appearance to prior examination. Additionally, diffuse interstitial prominence and hyperinflation suggesting underlying COPD. Electronically Signed: Surya Sheriff, DO at 20:46 EST , Assessment & Plan Assessment/Plan (1) Hypoxemia: (2) COPD exacerbation: PLAN: Plan The patient is a 64 y/o M w/ PMHx: Hx prior polysubstance abuse (crack cocaine primarily) now clean, Hx former EtOH abuse now sober, Hx TIA, Asthma/COPD, HTN, BPH with obstructive pathology on flomax, GERD, Tobacco use, recent discharge 05/18/2024 following evaluation treatment of acute hypoxia with underlying COPD exacerbation discharged on 2 L nasal cannula with a burst of prednisone therapy who now Wade presents to the [facility] ED on 05/20/2024 with history of gradually worsening dyspnea following a shower on the evening of day of presentation with significant wheezing with no improvement with albuterol described as a chest tightness prompting eventual EMS given inability to improve his symptoms. He does admit to smoking since discharge but notes he only did 1-2 cigarettes and is trying to quit. #1. Acute on Chronic Hypoxia (5L initial presentation->2.5 in the ED, prior recent discharge 2L NC) secondary to Suspected Acute Mucous Plugging with recent Acute Asthma/COPD exacerbation: CXR w/ chronic changes, CBC with no marked WBC elevation or left shift, afebrile. Will admit to [facility], maintain on oxygen with wean as tolerated to recent home 2 L nasal cannula supplementation per recent discharge, maintain on ATC duonebs, PRN albuterol, temporally placed back on IV methylprednisolone in case contributing given recent oral transition, HOB, IS parameters, will obtain sputum Cx given ED reported significant sputum production, strongly encouraged tobacco cessation. #2. History of polysubstance abuse (primarily crack cocaine, alcohol abuse): Patient reports being clean for many years and sober for many years, encourage continued clean and sober status. Reports that he recently moved from [place] to [place] because of concerns with substance abuse around him. #3. History TIA: Will maintain on aspirin, not on statin therapy per current list which will be deferred outpatient, continue hypertensive regimen as noted, no diabetic history. #4. Oral thrush: We will continue patient home nystatin oral swish and swallow regimen and encourage appropriate oral care especially after aerosol treatments. #5. BPH with obstructive pathology: We will continue patient on Flomax regimen. #6. Tobacco Abuse: Encouraged cessation, inpatient consultation per RT, NR if desired. #7. GERD: We will continue patient on PPI. #8. DVT prophylaxis: Lovenox. #9. CODE status: Patient HCPOA and living will are not in place but he notes his daughter would be his medical decision-maker if necessary. Discussed CODE status at length including difference between FULL code, DNR-CCA and DNR-CC status. Following discussions about the differences in these status, requested Full Code status. Charges/Coding Visit Charges Inpatient E&M: 47218 Init Hosp L2
[2024-05-21] VITALS (11 sets, daily range): BP systolic 116–154; BP diastolic 87–95; PULSE 78–115; RESP 17–21; TEMP 36.6–37.1; O2SAT 93–97
[2024-05-21] MEDS: 0.9% Saline Lock 10 ML Syringe IV ×3 (00:16→13:18)
[2024-05-21] MEDS: Acetaminophen 325 MG Tablet 650 MG PO ×2 (01:53→20:30)
[2024-05-21 06:20] LABS: Basophil# 0.02 X10^3/uL; Basophil% 0.2 % (0-1); Eosinophil# 0.01 X10^3/uL; Eosinophils% 0.1 % (0-5); Hematocrit 46.4 % (40-54); Hemoglobin 14.7 g/dL (13.0-16.5); Lymphocyte % 4.7 % (19-41); Mean Corp Hgb Conc 31.7 g/dL (32-36); Mean Corpuscular Hgb 30.6 pg (27.0-32.0); Mean Corpuscular Volume 96.5 fL (80-94); Mean Platelet Vol. 9.3 fl (6.2-12.0); Monocyte# 0.07 X10^3/uL; Monocyte% 0.8 % (0-10); NRBC Flagged by Analyzer 0 % (0-5); Neutrophil # 7.99 X10^3/uL (2.7-7.7); Neutrophil % 94.1 % (47-70); POSITIVE DIFFERENTIAL YES; Platelet Count 272 K/mm3 (150-450); RBC Distribution Width SD 46.3 fl (35.1-43.9); Red Blood Count 4.81 M/mm3 (4.6-6.2); White Blood Count 8.5 K/mm3 (4.4-11.0)
[2024-05-21 07:07] LABS: ALB/GLOB Ratio 0.9 RATIO (0.9-2.4); AST(SGOT) 15 U/L (15-37); Alanine Aminotransfer ALT/SGPT 27 U/L (16-61); Albumin, Serum 2.9 g/dL (3.2-5.0); Alkaline Phosphatase 79 U/L (45-117); Anion Gap 6 (5-15); BUN 14 mg/dL (7-18); Calcium,Total 8.9 mg/dL (8.5-10.1); Chloride 103 mmol/L (98-107); Creatinine, Serum 0.93 mg/dL (0.70-1.30); EST Glomerular Filtration Rate 87 mL/min (>60); Est Glom Filt Rate - Afr Amer 105 mL/min (>60); Estimated Creatinine Clearance 79.11 ml/min; Globulin 3.3 g/dL (2.2-4.2); Glucose 185 mg/dL (74-106); Potassium 4.2 mmol/L (3.5-5.1); Protein, Total 6.2 g/dL (6.4-8.2); Sodium Level 140 mmol/L (136-145)
[2024-05-21] MEDS: Ipratropium/Albuterol Sulfate 3 ML AMPUL.NEB INHALATION ×4 (07:39→19:51)
[2024-05-21] MEDS: NYSTATIN 500,000 UNIT/5 ML UDC 500000 UNIT PO ×4 (08:00→20:31)
[2024-05-21] MEDS: amLODIPine 2.5 MG Tablet PO (08:00)
[2024-05-21] MEDS: Pantoprazole Sodium 20 MG Tablet PO (08:00)
[2024-05-21] MEDS: Tamsulosin HCl 0.4 MG Capsule PO (08:00)
[2024-05-21] MEDS: Enoxaparin 40 MG/0.4 ML Syringe SC (08:00)
--- NOTE | 2024-05-21 08:29 | PN.HOSP_ITS ---
Reason for Visit Reason for Visit: Diagnoses Chronic obstructive pulmonary disease with (acute) exacerbation (05/20/24) Hypoxemia (05/20/24) Subjective Subjective Breathing better. Coughing up greenish phlegm. Objective Data Objective Data Vital Signs: Vital Signs Temp Pulse Resp BP Pulse Ox O2 Del Method O2 Flow Rate 36.9 C 110 H 19 H 134/95 H 93 Nasal Cannula 2 05/21/24 05:40 05/21/24 07:25 05/21/24 07:25 05/21/24 05:40 05/21/24 08:23 05/21/24 08:23 05/21/24 08:23 Oxygen Flow Rate (L/min) 2 Oxygen Delivery Method Nasal Cannula Weight: 69.7 kg Body Mass Index (BMI) 20.2 Intake & Output: Intake and Output for Last 24 Hours 05/19/24 05/20/24 05/21/24 23:59 23:59 23:59 Intake Total 100 / 100 350 / 350 Balance 100 / 100 350 / 350 Lab / Micro Data 05/21/24 05:30 05/21/24 05:30 Labs: Laboratory Results - last 24 hr 05/20/24 19:25: WBC 10.5, RBC 5.20, Hgb 16.0, Hct 49.3, MCV 94.8 H, MCH 30.8, MCHC 32.5, RDW Std Deviation 45.9 H, RDW Coeff of Brian 13.0, Plt Count 309, MPV 9.3, Immature Gran % (Auto) 0.400, Neut % (Auto) 69.3, Lymph % (Auto) 17.7 L, Frio % (Auto) 8.6, Eos % (Auto) 3.1, Baso % (Auto) 0.9, Absolute Neuts (auto) 7.3, Absolute Lymphs (auto) 1.85, Nucleated RBC % 0, Sodium 141, Potassium 3.8, Chloride 103, Carbon Dioxide 35.0 H, Anion Gap 3 L, BUN 11, Creatinine 0.86, Estim Creat Clear Calc 94.88, Est GFR (MDRD) Af Amer 116, Est GFR (MDRD) Non-Af 96, BUN/Creatinine Ratio 12.9, Glucose 108 H, Calcium 8.6, Troponin I High Sens 6 05/21/24 05:30: WBC 8.5, RBC 4.81, Hgb 14.7, Hct 46.4, MCV 96.5 H, MCH 30.6, M CHC 31.7 L, RDW Std Deviation 46.3 H, RDW Coeff of Brian 13.0, Plt Count 272, MPV 9.3, Immature Gran % (Auto) 0.100, Neut % (Auto) 94.1 H, Lymph % (Auto) 4.7 L, Frio % (Auto) 0.8, Eos % (Auto) 0.1, Baso % (Auto) 0.2, Absolute Neuts (auto) 8.0 H, Absolute Lymphs (auto) 0.40 L, Nucleated RBC % 0, Sodium 140, Potassium 4.2, Chloride 103, Carbon Dioxide 32.0, Anion Gap 6, BUN 14, Creatinine 0.93, Estim Creat Clear Calc 79.11, Est GFR (MDRD) Af Amer 105, Est GFR (MDRD) Non-Af 87, BUN/Creatinine Ratio 15.0, Glucose 185 H, Calcium 8.9, Total Bilirubin 0.30, AST 15, ALT 27, Alkaline Phosphatase 79, Total Protein 6.2 L, Albumin 2.9 L, Globulin 3.3, Albumin/Globulin Ratio 0.9 Radiography Diagnostic Testing: Radiology Impression Chest X-Ray 05/20/24 20:25 IMPRESSION: Patchy ill-defined pulmonary opacities may be in part due to scarring, atelectasis, or perhaps superimposed pneumonia with similar appearance to prior examination. Additionally, diffuse interstitial prominence and hyperinflation suggesting underlying COPD. Electronically Signed: Suryairma Sheriff, DO at 20:46 EST , Rhythm Strip Rhythm Strip: Sinus Tach Rate: 115 Ectopy: None Physical Exam Const alert and no apparent distress Resp normal respiratory effort and no retractions Cardio regular rate, regular rhythm, S1 normal heart sound and S2 normal heart sound GI normal to inspection, nondistended, normoactive bowel sounds, soft to palpation, non-tender and non-distended Extremity normal to inspection and full ROM Assessment & Plan Assessment/Plan (1) Hypoxemia: (2) COPD exacerbation: PLAN: Plan Acute COPD exacerbation * discharged 2 days prior with his own oxygen (previously had been using a friend's condenser) * on BDs and methylprednisone * CXR showed no acute process. Hyperinflated airways. * Coughing up green phlegm. Will add amox/CA and observe. Chronic conditions: * History of polysubstance abuse (primarily crack cocaine, alcohol abuse): Patient reports being clean for many years and sober for many years, encourage continued clean and sober status. Reports that he recently moved from [place] to [place] because of concerns with substance abuse around him. * History TIA: Will maintain on aspirin, not on statin therapy per current list which will be deferred outpatient, continue hypertensive regimen as noted, no diabetic history. * Oral thrush: We will continue patient home nystatin oral swish and swallow regimen and encourage appropriate oral care especially after aerosol treatments. * BPH with obstructive pathology: We will continue patient on Flomax regimen. * Tobacco Abuse: Encouraged cessation, inpatient consultation per RT, NR if desired. * GERD: We will continue patient on PPI. VTE prophylaxis: LMWH. Charges/Coding Visit Charges Inpatient E&M: 96791 Subs Hosp L2
[2024-05-21] MEDS: cycloBENZAPRine HCl 10 MG Tablet PO ×2 (09:24→20:40)
[2024-05-21] MEDS: Amox/Clavulanate 875 MG Tablet PO ×2 (14:58→20:31)
[2024-05-21] MEDS: Mag Hydrox/Al Hydrox/Simeth 30 ML UDC PO (20:30)
[2024-05-21] MEDS: MELATONIN 3 MG TABLET PO (20:30)
[2024-05-22] VITALS (13 sets, daily range): BP systolic 110–148; BP diastolic 91–98; PULSE 83–116; RESP 18–23; TEMP 36.6–36.8; O2SAT 91–97
[2024-05-22] MEDS: 0.9% Saline Lock 10 ML Syringe IV ×2 (04:28→13:43)
--- NOTE | 2024-05-22 07:04 | PN.HOSP_ITS ---
Reason for Visit Reason for Visit: Diagnoses Chronic obstructive pulmonary disease with (acute) exacerbation (05/20/24) Hypoxemia (05/20/24) Subjective Subjective Breathing well. Still coughing up some greenish phlegm. Has concerns about going home. States that [place] is [place] past [place] He lives with family members who smoke. He states that he is very interested in quitting smoking but states that it is very difficult when people are at home who still smoke. He is inquiring about going to some kind of senior citizen facility. Objective Data Objective Data Vital Signs: Vital Signs Temp Pulse Resp BP Pulse Ox O2 Del Method O2 Flow Rate 36.6 C 83 20 H 110/92 H 96 Nasal Cannula 2 05/22/24 04:19 05/22/24 04:19 05/22/24 04:19 05/22/24 04:19 05/22/24 04:21 05/22/24 04:21 05/22/24 04:21 Oxygen Flow Rate (L/min) 2 Oxygen Delivery Method Nasal Cannula Weight: 69.7 kg Body Mass Index (BMI) 20.2 Intake & Output: Intake and Output for Last 24 Hours 05/20/24 05/21/24 05/22/24 23:59 23:59 23:59 Intake Total 100 / 100 350 / 350 1000 / 1000 Balance 100 / 100 350 / 350 1000 / 1000 Lab / Micro Data 05/21/24 05:30 05/21/24 05:30 Labs: Laboratory Results - last 24 hr 05/21/24 05:30: Sodium 140, Potassium 4.2, Chloride 103, Carbon Dioxide 32.0, Anion Gap 6, BUN 14, Creatinine 0.93, Estim Creat Clear Calc 79.11, Est GFR (MDRD) Af Amer 105, Est GFR (MDRD) Non-Af 87, BUN/Creatinine Ratio 15.0, Glucose 185 H, Calcium 8.9, Total Bilirubin 0.30, AST 15, ALT 27, Alkaline Phosphatase 79, Total Protein 6.2 L, Albumin 2.9 L, Globulin 3.3, Albumin/Globulin Ratio 0.9 Rhythm Strip Rhythm Strip: Sinus Tach Rate: 115 Ectopy: None Physical Exam Const alert and no apparent distress Constitutional Narrative: Speaking quite a bit with no respiratory distress or conversational dyspnea. HEENT head/scalp atraumatic and moist oral mucous membranes Resp normal respiratory effort, no retractions, no use of accessory muscles and clear to auscultation bilaterally Cardio regular rate, regular rhythm, S1 normal heart sound and S2 normal heart sound GI normal to inspection, nondistended, normoactive bowel sounds, soft to palpation, non-tender and non-distended Extremity normal to inspection and full ROM Neuro Sensorium / Orientation: awake and alert Assessment & Plan Assessment/Plan (1) Hypoxemia: (2) COPD exacerbation: PLAN: Plan Acute COPD exacerbation * discharged 2 days prior with his own oxygen (previously had been using a friend's condenser) * on BDs and methylprednisone * CXR showed no acute process. Hyperinflated airways. * Coughing up green phlegm. Will add amox/CA and observe. Chronic conditions: * History of polysubstance abuse (primarily crack cocaine, alcohol abuse): Patient reports being clean for many years and sober for many years, encourage continued clean and sober status. Reports that he recently moved from [place] to [place] because of concerns with substance abuse around him. * History TIA: Will maintain on aspirin, not on statin therapy per current list which will be deferred outpatient, continue hypertensive regimen as noted, no diabetic history. * Oral thrush: We will continue patient home nystatin oral swish and swallow regimen and encourage appropriate oral care especially after aerosol treatments. * BPH with obstructive pathology: We will continue patient on Flomax regimen. * Tobacco Abuse: Encouraged cessation, inpatient consultation per RT, NR if desired. * GERD: We will continue patient on PPI. VTE prophylaxis: LMWH. Disposition: Patient is overall doing fairly well. It is concerning given his social situation where he lives at home with people that smoke and he was just admitted within 48 hours after being discharged. Me was were inquiring about some [facility]dc facility information. I told him that we can have case management talk to him about some facilities but told him that we would not be the ones to facilitate that upon discharge. I think it would help him overall in regards to some of his underlying anxiety be more at ease about going home if we would have some that information be able to be provided to him. I feel that discharge on the 16 would probably be the best option, assuming he continues to be medically ready at that time. Charges/Coding Visit Charges Inpatient E&M: 45438 Subs Hosp L2
[2024-05-22] MEDS: Amox/Clavulanate 875 MG Tablet PO ×2 (07:45→20:37)
[2024-05-22] MEDS: Enoxaparin 40 MG/0.4 ML Syringe SC (07:45)
[2024-05-22] MEDS: amLODIPine 2.5 MG Tablet PO (07:45)
[2024-05-22] MEDS: Tamsulosin HCl 0.4 MG Capsule PO (07:46)
[2024-05-22] MEDS: NYSTATIN 500,000 UNIT/5 ML UDC 500000 UNIT PO ×4 (07:46→20:37)
[2024-05-22] MEDS: Pantoprazole Sodium 20 MG Tablet PO (07:46)
[2024-05-22] MEDS: Ipratropium/Albuterol Sulfate 3 ML AMPUL.NEB INHALATION ×4 (07:49→20:50)
[2024-05-22] MEDS: cycloBENZAPRine HCl 10 MG Tablet PO ×2 (07:49→20:39)
[2024-05-22] MEDS: Albuterol 2.5 MG/3 ML VIAL.NEB. INHALATION ×2 (16:46→22:53)
[2024-05-22] MEDS: Acetaminophen 325 MG Tablet 650 MG PO (17:19)
[2024-05-22] MEDS: MELATONIN 3 MG TABLET PO (22:52)
[2024-05-22] MEDS: Mag Hydrox/Al Hydrox/Simeth 30 ML UDC PO (22:52)
[2024-05-23 04:23] VITALS: BP 150/90; PULSE 95; RESP 18; TEMP 36.9; O2SAT 96
[2024-05-23] MEDS: 0.9% Saline Lock 10 ML Syringe IV ×2 (04:29→13:46)
[2024-05-23 07:08] VITALS: PULSE 109; RESP 20; O2SAT 97
[2024-05-23] MEDS: Ipratropium/Albuterol Sulfate 3 ML AMPUL.NEB INHALATION ×2 (07:08→11:13)
--- NOTE | 2024-05-23 07:33 | PN.HOSP_ITS ---
Reason for Visit Reason for Visit: Diagnoses Chronic obstructive pulmonary disease with (acute) exacerbation (05/20/24) Hypoxemia (05/20/24) Subjective Subjective Breathing well. Coughing up less phlegm. Objective Data Objective Data Vital Signs: Vital Signs Temp Pulse Resp BP Pulse Ox O2 Del Method O2 Flow Rate 36.9 C 95 18 150/90 H 96 Nasal Cannula 2.5 05/23/24 04:23 05/23/24 04:23 05/23/24 04:23 05/23/24 04:23 05/23/24 04:23 05/23/24 04:24 05/23/24 04:24 Oxygen Flow Rate (L/min) 2.5 Oxygen Delivery Method Nasal Cannula Weight: 69.7 kg Body Mass Index (BMI) 20.2 Intake & Output: Intake and Output for Last 24 Hours 05/21/24 05/22/24 05/23/24 23:59 23:59 23:59 Intake Total 350 / 350 1000 / 1400 800 / 800 Balance 350 / 350 1000 / 1400 800 / 800 Lab / Micro Data 05/21/24 05:30 05/21/24 05:30 Micro: Microbiology 05/21/24 20:42 Sputum, Expectorated/Coughed Gram Stain - Final 05/21/24 20:42 Sputum, Expectorated/Coughed Respiratory Culture - Preliminary GNR Poss Pseudomonas sp Rhythm Strip Rhythm Strip: Sinus Tach Rate: 115 Ectopy: None Physical Exam Const alert and no apparent distress Resp normal respiratory effort, no retractions, no use of accessory muscles and clear to auscultation bilaterally Cardio regular rate, regular rhythm, S1 normal heart sound and S2 normal heart sound GI normal to inspection, nondistended, normoactive bowel sounds, soft to palpation, non-tender and non-distended Neuro Sensorium / Orientation: awake and alert Assessment & Plan Assessment/Plan (1) Hypoxemia: (2) COPD exacerbation: PLAN: Plan Acute COPD exacerbation * discharged 2 days prior with his own oxygen (previously had been using a friend's condenser) * on BDs and methylprednisone * CXR showed no acute process. Hyperinflated airways. * Coughing up green phlegm. Will add amox/CA and observe. Chronic conditions: * History of polysubstance abuse (primarily crack cocaine, alcohol abuse): Patient reports being clean for many years and sober for many years, encourage continued clean and sober status. Reports that he recently moved from [place] to [place] because of concerns with substance abuse around him. * History TIA: Will maintain on aspirin, not on statin therapy per current list which will be deferred outpatient, continue hypertensive regimen as noted, no diabetic history. * Oral thrush: We will continue patient home nystatin oral swish and swallow regimen and encourage appropriate oral care especially after aerosol treatments. * BPH with obstructive pathology: We will continue patient on Flomax regimen. * Tobacco Abuse: Encouraged cessation, inpatient consultation per RT, NR if desired. * GERD: We will continue patient on PPI. VTE prophylaxis: LMWH. Disposition: Patient is overall doing fairly well. It is concerning given his social situation where he lives at home with people that smoke and he was just admitted within 48 hours after being discharged. Me was were inquiring about some [place] [facility] facility facility information. I told him that we can have case management talk to him about some facilities but told him that we would not be the ones to facilitate that upon discharge. I think it would help him overall in regards to some of his underlying anxiety be more at ease about going home if we would have some that information be able to be provided to him. I feel that discharge on the 16 would probably be the best option, assuming he continues to be medically ready at that time. Discharge home.
[2024-05-23 07:58] VITALS: BP 140/95; PULSE 99; RESP 18; TEMP 36.7; O2SAT 96
[2024-05-23] MEDS: Acetaminophen 325 MG Tablet 650 MG PO (08:13)
[2024-05-23] MEDS: guaiFENesin 10 ML UDC (200MG/10ML) 20 ML PO (08:14)
[2024-05-23 08:43] VITALS: O2SAT 86; O2SAT 89; O2SAT 92
--- NOTE | 2024-05-23 09:19 | CASEMGMT ---
Addendum entered by Emmie Ferguson 05/23/24 11:56: Received email back from Clive at [facility], ok to take portable tank home. [facility] delivered tank to room. Pt nurse aware. Pt is aware of his oxygen testing and that he requires now 2l with exertion which is different from his previous. Pt verbalizes understanding. Addendum entered by Emmie Ferguson 05/23/24 11:55: 1122- [facility] into pt room, pt states his oxygen is all set up at home. Pt does not have a portable tank to go home on and states his dtr is unable to bring one in. Pt is aware this [facility] [place] [facility] [place]. Pt states he will call his insurance to pick him up and transport home. Pt still maintains that he cannot have any assistance in the home. Pt denies homegoing needs. Original Note: Updated [place] [facility] [place] [facility] [place] pt just recently dc'd with new oxygen.
[2024-05-23] MEDS: Tamsulosin HCl 0.4 MG Capsule PO (10:15)
[2024-05-23] MEDS: Enoxaparin 40 MG/0.4 ML Syringe SC (10:15)
[2024-05-23] MEDS: Amox/Clavulanate 875 MG Tablet PO (10:15)
[2024-05-23] MEDS: cycloBENZAPRine HCl 10 MG Tablet PO (10:15)
[2024-05-23] MEDS: NYSTATIN 500,000 UNIT/5 ML UDC 500000 UNIT PO ×2 (10:16→13:45)
[2024-05-23] MEDS: amLODIPine 2.5 MG Tablet PO (10:16)
[2024-05-23] MEDS: Pantoprazole Sodium 20 MG Tablet PO (10:16)
--- NOTE | 2024-05-23 10:27 | PCM.DC.SUM ---
Providers Date of Admission: 05/20/24 Primary Care Physician: Iker Blackwell MD Reason For Visit: COPD EXACERBATION Diagnosis Discharge Diagnosis (1) Hypoxemia: Status: Acute Code(s): R09.02 - Hypoxemia (2) COPD exacerbation: Status: Chronic Code(s): J44.1 - Chronic obstructive pulmonary disease with (acute) exacerbation Plan Acute COPD exacerbation discharged 2 days prior with his own oxygen (previously had been using a friend's condenser) on BDs and methylprednisone CXR showed no acute process. Hyperinflated airways. Coughing up green phlegm. Will add amox/CA and observe. Chronic conditions: History of polysubstance abuse (primarily crack cocaine, alcohol abuse): Patient reports being clean for many years and sober for many years, encourage continued clean and sober status. Reports that he recently moved from [place] to [place] because of concerns with substance abuse around him. History TIA: Will maintain on aspirin, not on statin therapy per current list which will be deferred outpatient, continue hypertensive regimen as noted, no diabetic history. Oral thrush: We will continue patient home nystatin oral swish and swallow regimen and encourage appropriate oral care especially after aerosol treatments. BPH with obstructive pathology: We will continue patient on Flomax regimen. Tobacco Abuse: Encouraged cessation, inpatient consultation per RT, NR if desired. GERD: We will continue patient on PPI. VTE prophylaxis: LMWH. Disposition: Patient is overall doing fairly well. It is concerning given his social situation where he lives at home with people that smoke and he was just admitted within 48 hours after being discharged. Me was were inquiring about some long term facility information. I told him that we can have case management talk to him about some facilities but told him that we would not be the ones to facilitate that upon discharge. I think it would help him overall in regards to some of his underlying anxiety be more at ease about going home if we would have some that information be able to be provided to him. I feel that discharge on the would probably be the best option, assuming he continues to be medically ready at that time. Discharge home. Medications at Discharge Home Medications albuterol sulfate 90 mcg/actuation aerosol inhaler (Ventolin HFA) 1 - 2 puff inhalation Q4H PRN PRN Wheezing #1 ea 01/02/24 fluticasone fur. 100 mcg-umeclid 62.5 mcg-vilant 25 mcg inhalat.powder (Trelegy Ellipta) 1 ea inhalation DAILY breathing 01/21/24 ipratropium 0.5 mg-albuterol 3 mg (2.5 mg base)/3 mL nebulization soln 1.5 ml inhalation Q8H PRN copd 01/21/24 loratadine 10 mg tablet (Allergy Relief (loratadine)) 10 mg PO Q24H PRN allergy symptoms 01/21/24 omeprazole 20 mg capsule,delayed release 20 mg PO DAILY reflux 01/21/24 tamsulosin 0.4 mg capsule 0.4 mg PO DAILY prostate 01/21/24 amlodipine 2.5 mg tablet (Norvasc) 2.5 mg PO DAILY bp #30 tabs 01/22/24 diphenhydramine HCl 25 mg capsule 50 mg (2 x 25 mg) PO TID PRN allergic reaction #20 caps 01/22/24 cyclobenzaprine 10 mg tablet 10 mg PO BID spasm 05/17/24 dextromethorphan-guaifenesin 30 mg-600 mg tablet extended [id number] hr (Mucus DM) 1 tab PO Q12H PRN cough #14 tabs 05/18/24 nystatin 100,000 unit/mL oral suspension 500,000 unit (5 mL) PO 4X/DAY 7 days #140 mL 05/18/24 amoxicillin 875 mg-potassium clavulanate 125 mg tablet 1 tab PO BID #10 tabs 05/23/24 prednisone 20 mg tablet 40 mg (2 x 20 mg) PO DAILY #10 tabs 05/23/24 Hospital Course Operations None Procedures None Summary of Care Provided Minutes Spent on Discharge: 32 Hospital Course: Patient presents with shortness of breath after just being discharged with a COPD exacerbation. Patient was otherwise stable. Patient did require oxygen florian here. He was coughing up green phlegm. Patient was started on Augmentin. His course was uncomplicated. Patient will be discharged back home with oxygen but 2 L continuous. Weight / BMI Weight Weight: 69.7 kg Body Mass Index (BMI) 20.2 ABG / Lab / Microbiology Data 05/21/24 05:30 05/21/24 05:30 Microbiology: Microbiology 05/21/24 20:42 Sputum, Expectorated/Coughed Gram Stain - Final 05/21/24 20:42 Sputum, Expectorated/Coughed Respiratory Culture - Final Pseudomonas aeruginosa D/C Instructions Discharge Diet: No restrictions DC O2, CPAP, BIPAP Needs RN Home O2 Qualification: Home O2 Qualification: Is the patient on home oxygen Yes 05/23/24 08:43 Home O2 Qualification: AT REST 1-Pulse Ox at rest 89 05/23/24 08:43 1- Oxygen flow rate at rest 0 05/23/24 08:43 Home O2 Qualification: WITH AMBULATION 1- Pulse Ox with ambulation 86 05/23/24 08:43 1- Oxygen Flow Rate with 0 05/23/24 08:43 ambulation 2- Pulse Ox with ambulation 92 05/23/24 08:43 2- Oxygen Flow Rate with 2 05/23/24 08:43 ambulation Additional Home O2 Discharge instructions: Yes Type of respiratory needs?: Oxygen Oxygen frequency: Continuous Continuous oxygen liters per minute: 2 DC home with Oxygen: Yes Home O2 MD Review: I have reviewed the oxygen testing, and the patient qualifies for home oxygen equipment and portability. The patient is mobile in the home and the community. Meaningful Use Info Meaningful Use Meaningful Use Diagnoses (Choose all that apply): None applicable Ischemic Stroke Statin Dosing Therapy Reference: STATIN DOSE THERAPY REFERENCE: * Patients > 75 years receive moderate or high dose statin therapy. * Patients 75 years or YOUNGER should receive HIGH intensity statin dose unless contraindicated. You will be required to document reason for non-treatment if statin daily dose does not meet guidelines. HIGH DOSE STATIN THERAPY DAILY Atorvastatin > than or = to 40 mg Rosuvastatin > than or = to 20 mg Amlodipine + Atorvastatin > than or = to 2.5/40 mg Ezetimibe + Simvastatin 10/80 mg Simvastatin 80mg Discharge Plan Admission Admit Date/Time: 05/20/24 22:03 Primary Reason for Your Visit: COPD exacerbation. Attending Provider: Elijah Guerrero Primary Care Provider: Iker Blackwell Consulting Providers: Noelle Fleming Discharge Orders/Prescriptions Prescriptions: New amoxicillin-pot clavulanate 875-125 mg Tablet 1 tab PO BID Qty: 10 0RF Continued cyclobenzaprine 10 mg tablet 10 mg PO BID nystatin 100,000 unit/mL Suspension 500,000 unit PO 4X/DAY 7 Days Qty: 140 0RF Mucus DM 30-600 mg tablet extended release 12 hr 1 tab PO Q12H PRN (Reason: cough) Qty: 14 0RF prednisone 20 mg tablet 40 mg PO DAILY Qty: 10 0RF albuterol sulfate [Ventolin HFA] 90 mcg/actuation HFA aerosol inhaler 1 - 2 puff inhalation Q4H PRN PRN (Reason: Wheezing) Qty: 1 0RF ipratropium-albuterol 0.5 mg-3 mg(2.5 mg base)/3 mL solution for nebulization 1.5 ml inhalation Q8H PRN (Reason: copd) loratadine [Allergy Relief (loratadine)] 10 mg tablet 10 mg PO Q24H PRN (Reason: allergy symptoms) Trelegy Ellipta 100-62.5-25 mcg blister with device 1 ea inhalation DAILY tamsulosin 0.4 mg capsule 0.4 mg PO DAILY omeprazole 20 mg capsule,delayed release(DR/EC) 20 mg PO DAILY diphenhydramine HCl 25 mg capsule 50 mg PO TID PRN (Reason: allergic reaction) Qty: 20 0RF amlodipine [Norvasc] 2.5 mg tablet 2.5 mg PO DAILY Qty: 30 0RF Referrals / Follow Up: Iker Blackwell MD [Primary Care Provider] - Disposition Disposition (needs filled in before D/C Order can be placed): Home, Self Care Charges/Coding Visit Charges Inpatient E&M: 64148 Disch Hosp >30min
--- NOTE | 2024-05-23 11:02 | CASEMGMT ---
Social Work- SW met with pt and provided AL information, as well as additional Direction Home information. SW completed referral at pt last visit. SW discussed emails on wheels and provided education and printed materials on waiver program, which will cover meals on wheels. Pt reports no other needs at this time. KIYA Schafer
--- NOTE | 2024-05-23 11:12 | PHA.DC.MC.R ---
Pharmacy [facility] has performed discharge medication reconciliation and counseling for this patient. 1. AMOXICILLIN/CLAVULANATE 875/125MG PO BID X 5 DAYS 2. PREDNISONE 40MG PO DAILYCM X 5 DAYS The patient's discharge medication list was reviewed for discrepancies and discrepancies were resolved. The patient was counseled on the following discharge medications and changes in medications for homegoing were reviewed. The Reason for Use, instructions for use, and potential side effects were reviewed for all new medications. The patient's questions regarding all of their medications were answered. The patient was able to verbally demonstrate an understanding of their discharge medications. Medications at Discharge Home Medications albuterol sulfate 90 mcg/actuation aerosol inhaler (Ventolin HFA) 1 - 2 puff inhalation Q4H PRN PRN Wheezing #1 ea 01/02/24 fluticasone fur. 100 mcg-umeclid 62.5 mcg-vilant 25 mcg inhalat.powder (Trelegy Ellipta) 1 ea inhalation DAILY breathing 01/21/24 ipratropium 0.5 mg-albuterol 3 mg (2.5 mg base)/3 mL nebulization soln 1.5 ml inhalation Q8H PRN copd 01/21/24 loratadine 10 mg tablet (Allergy Relief (loratadine)) 10 mg PO Q24H PRN allergy symptoms 01/21/24 omeprazole 20 mg capsule,delayed release 20 mg PO DAILY reflux 01/21/24 tamsulosin 0.4 mg capsule 0.4 mg PO DAILY prostate 01/21/24 amlodipine 2.5 mg tablet (Norvasc) 2.5 mg PO DAILY bp #30 tabs 01/22/24 diphenhydramine HCl 25 mg capsule 50 mg (2 x 25 mg) PO TID PRN allergic reaction #20 caps 01/22/24 cyclobenzaprine 10 mg tablet 10 mg PO BID spasm 05/17/24 dextromethorphan-guaifenesin 30 mg-600 mg tablet extended hr (Mucus DM) 1 tab PO Q12H PRN cough #14 tabs 05/18/24 nystatin 100,000 unit/mL oral suspension 500,000 unit (5 mL) PO 4X/DAY 7 days #140 mL 05/18/24 amoxicillin 875 mg-potassium clavulanate 125 mg tablet 1 tab PO BID #10 tabs 05/23/24 prednisone 20 mg tablet 40 mg (2 x 20 mg) PO DAILY #10 tabs 24
[2024-05-23 11:13] VITALS: PULSE 110; RESP 22
[2024-05-23 12:02] VITALS: BP 152/87; PULSE 101; RESP 18; TEMP 36.8; O2SAT 93
--- NOTE | 2024-05-26 08:14 | CASEMGMT ---
Social Work- SW received notice from [facility] that they were unable to reach pt and referral has been closed. KIYA Schafer
== END 2024-05-23 14:06 | disposition home or self-care (01) ==
LOC: ED 21:46 → MS3 22:17
PROVIDERS: Admitting Provider Family Medicine; Emergency Provider Emergency Medicine; PCP Family Medicine
DX: J44.1 Chronic obstructive pulmonary disease with (acute) exacerbation (principal); I25.10 Atherosclerotic heart disease of native coronary artery without angina pectoris; I10 Essential (primary) hypertension; Z79.51 Long term (current) use of inhaled steroids; N40.1 Benign prostatic hyperplasia with lower urinary tract symptoms; N13.8 Other obstructive and reflux uropathy; Z99.81 Dependence on supplemental oxygen; Z79.899 Other long term (current) drug therapy; F17.200 Nicotine dependence, unspecified, uncomplicated; K21.9 Gastro-esophageal reflux disease without esophagitis; B37.0 Candidal stomatitis
CPT/HCPCS: 36415; 71045; 80048; 80053; 84484; 85025; 87070; 87077; 87184; 87186; 87205; 93005; 94640; 94668; 96372; 96374; 96376; 99221; 99285; 99406; A4216; G0378

== ENCOUNTER 2024-05-30 23:17 | Emergency (ER) | payer MEDICAID, SELFPAY ==
[2024-05-30 23:18] VITALS: BP 122/92; PULSE 116; RESP 24; TEMP 37.2; O2SAT 97; O2SAT 98; BMI 20.7
[2024-05-30 23:20] VITALS: PULSE 116; RESP 28
[2024-05-30] MEDS: Ipratropium/Albuterol Sulfate 3 ML AMPUL.NEB INHALATION (23:20)
[2024-05-30] MEDS: Albuterol 2.5 MG/3 ML VIAL.NEB. INHALATION (23:20)
[2024-05-30 23:22] VITALS: BP 122/92; PULSE 121; RESP 22; TEMP 37.2; O2SAT 96
--- NOTE | 2024-05-30 23:31 | EKG12_ITS ---
Test Reason : DYSRHYTHMIA Blood Pressure : */* mmHG Vent. Rate : 121 BPM Atrial Rate : 122 BPM P-R Int : 128 ms QRS Dur : 86 ms QT Int : 298 ms P-R-T Axes : 83 64 71 degrees QTcB Int : 423 ms Sinus tachycardia Low voltage QRS Borderline ECG Confirmed by ROCK BOYER, PARAG ([id number]), restaurant expeditor YENNY NUNEZ ([id number]) on 06/02/2024 2:14:35 PM Referred By: TB Confirmed By: PARAG WILKERSON MD
[2024-05-30 23:39] VITALS: O2SAT 95
[2024-05-30 23:47] LABS: Allen Test Positive; Base Excess 11 mmol/L (-2 to +2); Bicarbonate 36.3 mmol/L (22-26); Blood Gas Specimen Type ART; Mode Not entered; O2 Delivery Device Cannula; PO2 92 mmHG (75-100); SITE L Radial; SO2 97 % (95-99); Total Carbon Dioxide 38 mmol/L; pCO2 60.7 mmHg (35-45); pH 7.39 (7.35-7.45)
[2024-05-30 23:51] LABS: Absolute Lymphocyte Count 2.11 X10^3/uL (0.83-4.51); Absolute Neutrophil Count 11.8 X10^3/uL (2.0-7.7); Basophil# 0.05 X10^3/uL; Basophil% 0.3 % (0-1); Eosinophils% 6.6 % (0-5); Hematocrit 49.5 % (40-54); Hemoglobin 15.6 g/dL (13.0-16.5); Lymphocyte # 2.11 X10^3/ul (0.83-4.51); Lymphocyte % 12.7 % (19-41); Mean Corp Hgb Conc 31.5 g/dL (32-36); Mean Corpuscular Hgb 30.2 pg (27.0-32.0); Mean Corpuscular Volume 95.9 fL (80-94); Mean Platelet Vol. 8.8 fl (6.2-12.0); Monocyte# 1.21 X10^3/uL; Monocyte% 7.3 % (0-10); NRBC Flagged by Analyzer 0 % (0-5); Neutrophil # 11.82 X10^3/uL (2.7-7.7); Platelet Count 261 K/mm3 (150-450); RBC Distribution Width CV 13.2 % (11.6-14.6); Red Blood Count 5.16 M/mm3 (4.6-6.2); White Blood Count 16.6 K/mm3 (4.4-11.0)
[2024-05-30] MEDS: MethylPREDNISolone 125 MG/2 ML Vial IV (23:52)
[2024-05-30] MEDS: 0.9% Normal Saline (1000mL) 1,000 ML 999 ML IV (23:52)
--- NOTE | 2024-05-30 23:53 | CPS ---
[2320] x1 Albuterol given to pt. in ER
--- NOTE | 2024-05-30 23:55 | EX.ED.DYSGE1 ---
HPI History of Present Illness Chief Complaint: Shortness of Breath Narrative Narrative: Patient is a 64-year-old male with past medical history of COPD chronically on 2.5 L, hypertension, TIA, history of substance abuse who presents to the emergency department with a chief complaint of cough and shortness of breath. Patient states that he was recently discharged from the hospital and finished a course of steroids yesterday. He states that he spent all day in bed not feeling well. He states he is having increased sputum production. He states that tonight he had significant difficulty with breathing despite using his breathing treatments therefore he came here for the valuation management. Patient denies any history of blood clots and denies any blood thinner medications denies any recent travel history. Patient was noted to be hypoxic on his 2.5 L nasal cannula per EMS therefore they placed him on 5 L. [facility] Medical History History of substance use History of alcohol abuse Smoker Emphysema lung Asthma COPD (chronic obstructive pulmonary disease) Hypertension Migraines TIA (transient ischemic attack) Adverse reaction to REEMA inhibitor drug Home Medications ?Medication ?Instructions ?Recorded ?Last Taken ?Type albuterol sulfate 90 mcg/actuation 1 - 2 puff inhalation Q4H PRN PRN 01/02/24 Unknown Rx aerosol inhaler (Ventolin HFA) Wheezing #1 ea fluticasone fur. 100 mcg-umeclid 1 ea inhalation DAILY breathing 01/21/24 Unknown History 62.5 mcg-vilant 25 mcg inhalat.powder (Trelegy Ellipta) ipratropium 0.5 mg-albuterol 3 mg 1.5 ml inhalation Q8H PRN copd 01/21/24 Unknown History (2.5 mg base)/3 mL nebulization soln loratadine 10 mg tablet (Allergy 10 mg PO Q24H PRN allergy symptoms 01/21/24 Unknown History Relief (loratadine)) omeprazole 20 mg capsule,delayed 20 mg PO DAILY reflux 01/21/24 Unknown History release tamsulosin 0.4 mg capsule 0.4 mg PO DAILY prostate 01/21/24 Unknown History amlodipine 2.5 mg tablet (Norvasc) 2.5 mg PO DAILY bp #30 tabs 01/22/24 Unknown Rx diphenhydramine HCl 25 mg capsule 50 mg (2 x 25 mg) PO TID PRN 01/22/24 Unknown Rx allergic reaction #20 caps cyclobenzaprine 10 mg tablet 10 mg PO BID spasm 05/17/24 Unknown History dextromethorphan-guaifenesin 30 1 tab PO Q12H PRN cough #14 tabs 05/18/24 Unknown Rx mg-600 mg tablet extended [id number] hr (Mucus DM) nystatin 100,000 unit/mL oral 500,000 unit (5 mL) PO 4X/DAY 7 05/18/24 Unknown Rx suspension days #140 mL amoxicillin 875 mg-potassium 1 tab PO BID #10 tabs 05/23/24 Unknown Rx clavulanate 125 mg tablet prednisone 20 mg tablet 40 mg (2 x 20 mg) PO DAILY #10 tabs 05/23/24 Unknown Rx doxycycline hyclate 100 mg capsule 100 mg PO BID 10 days #20 caps 05/31/24 Unknown Rx prednisone 50 mg tablet 50 mg PO DAILY 5 days #5 tabs 05/31/24 Unknown Rx Allergy/AdvReac Type Severity Reaction Status Date / Time lisinopril Allergy Severe Angioedema Verified 05/30/24 23:18 codeine Allergy Mild Itching Verified 05/30/24 23:18 Family History Mother Uterine cancer Father ETOH abuse Surgical History History of testicular surgery History of gastric surgery History of bilateral inguinal hernia repair History of total right hip replacement Social History household members: other details: His daugher and his grandson live with him. Smoking Status: Former smoker how long ago did patient quit smoking: Patient prior smoked up to 2 ppd, started at age 9, down to 1 pack max/week quit status: considering quitting alcohol intake: former substance use type: former substance user ROS ROS ED ROS Narrative Constitutional: Complains of chills and fever denies headaches, lightness, dizziness Eyes: Denies change in vision double vision blurry vision Cardiovascular: Complains of left-sided chest discomfort denies palpitations Respiratory: Complains of increased butyrin production and shortness of breath as noted above as well as wheezing Abdomen: Complains of abdominal pain and nausea denies vomiting or diarrhea states that he is passing gas. Patient states that he has had previous abdominal surgeries : Denies any urinary symptoms Neurological: Denies any numbness, weakness, tingling Musculoskeletal: Denies back pain Skin: Denies rashes or lesions EXAM Physical Exam Narrative Exam Narrative: General: Patient lying in bed did appear to be acutely short of breath Head: Atraumatic, normocephalic Eyes: PERRL bilaterally, EOMI bilateral, no conjunctival injection noted Neck: Soft, supple, trach midline Cardiovascular: Patient tachycardic with a regular rhythm no murmurs gallops rubs are noted Respiratory: Patient has bilateral end expiratory wheezing noted on exam Abdomen: Soft, nondistended, diffuse tenderness palpation no rebound or guarding on exam, bowel sounds present x 4 Extremities: +5/5 strength noted in the bilateral upper and lower extremities, radial pulses +2/4 in the bilateral extremities, no pedal edema on exam Neurological: Patient follow commands knew that he was at [facility] years 2023 Skin: Warm, dry, intact Const Vital Signs: 05/30/24 23:18 05/30/24 23:18 05/30/24 23:20 Temperature 99.0 F Temperature Source Oral Pulse Rate 116 H 116 H Respiratory Rate 24 H 28 H Respiratory Effort Short of Breath Respiratory Pattern Tachypnea Blood Pressure 122/92 H Blood Pressure Mean 102 Pulse Ox 97 Oxygen Delivery Method Nasal Cannula Nasal Cannula Oxygen Flow Rate (L/min) 3 3 05/30/24 23:22 05/30/24 23:31 05/30/24 23:39 Temperature 99.0 F Temperature Source Oral Pulse Rate 121 H Respiratory Rate 22 H Respiratory Effort Respiratory Pattern Blood Pressure 122/92 H Blood Pressure Mean 102 Pulse Ox 96 95 Oxygen Delivery Method Nasal Cannula Nasal Cannula Nasal Cannula Oxygen Flow Rate (L/min) 4 2 2 05/31/24 00:22 05/31/24 01:00 05/31/24 02:00 Temperature 99.0 F 98.7 F Temperature Source Oral Oral Pulse Rate 106 H 103 H 98 Respiratory Rate 36 H 24 H 24 H Respiratory Effort Respiratory Pattern Blood Pressure 129/110 H 139/82 H 146/85 H Blood Pressure Mean 116 101 105 Pulse Ox 99 97 96 Oxygen Delivery Method Nasal Cannula Nasal Cannula Nasal Cannula Oxygen Flow Rate (L/min) 2 2 2 05/31/24 02:00 05/31/24 03:00 05/31/24 04:00 Temperature 98.6 F Temperature Source Temporal Pulse Rate 98 98 104 H Respiratory Rate 24 H 23 H 22 H Respiratory Effort Respiratory Pattern Blood Pressure 146/85 H 172/96 H 134/79 H Blood Pressure Mean 105 121 97 Pulse Ox 96 95 95 Oxygen Delivery Method Nasal Cannula Nasal Cannula Nasal Cannula Oxygen Flow Rate (L/min) 2 2.5 2.5 05/31/24 05:00 Temperature Temperature Source Pulse Rate 105 H Respiratory Rate 20 H Respiratory Effort Respiratory Pattern Blood Pressure 139/85 H Blood Pressure Mean 103 Pulse Ox 94 Oxygen Delivery Method Nasal Cannula Oxygen Flow Rate (L/min) 2.5 MDM MDM MDM Narrative Medical decision making narrative: patient is a 64-year-old male who presented to the emergency department with a chief complaint of shortness of breath and cough. Patient will have a workup performed here on the differential diagnose includes Melamin to upper respiratory infection second viral etiology, pneumonia, ACS, viral gastroenteritis, bowel obstruction, PE. Once workup is obtained reviewed he will be reevaluated. Patient be given 3 DuoNebs, Solu-Medrol, 30 cc/kg bolus of IV fluids which was ordered at 2331. ABG was performed and interpreted by myself which showed a pH 7.38 with a pCO2 of 60.7 he has chronic hypercapnic respiratory failure secondary to COPD. Patient CBC was reviewed and showed a leukocytosis 16,000, hemoglobin 15.6, plate count normal at 261. Patient's INR was normal at 0.9, PT of 11.8. Patient's sodium normal 139, potassium was 4, creatinine normal at 0.91. Patient lactic acid normal at 1.6. Patient's AST and ALT were 21 and 52 respectively, troponin normal at 8 with EKG reviewed and independently interpreted by myself showed sinus tachycardia with low voltage noted. Patient's proBNP normal 11.7, lipase normal at 15. Patient urinalysis did not reveal any evidence of infection. CTA of his chest showed no evidence of pulmonary embolism. Moderate to severe centrilobular emphysematous changes. They are recommending a low-dose CT screening in the future. Patient's CT abdomen pelvis with IV contrast showed no acute findings within the abdomen or pelvis. At 3:07 AM patient ambulated here in the emergency department and his oxygen level was around 93 to 94%. Patient states that he was feeling short of breath. On repeat exam patient is wheezing still he will be given another albuterol and states that terbutaline helped him recently and is requesting this to be given which was ordered. Patient will given a dose of doxycycline as well. Patient was observed here in the emergency department overnight and at 6:38 AM he states that he is feeling better and he would like to go home at this point time. Patient ambulated and his oxygen remained normal and his heart rate has normalized. Patient was offered admission but states that given his recent admission and the holiday coming up he would prefer to go home and return if things worsen. Patient will be given prescription for steroids and doxycycline. He states that he has plenty of inhalers at home. All question concerns answered he is discharged home in stable condition. Lab Data Labs: Laboratory Results - last 24 hr 05/30/24 05/30/24 05/31/24 23:32 23:50 01:49 WBC 16.6 H RBC 5.16 Hgb 15.6 Hct 49.5 MCV 95.9 H MCH 30.2 MCHC 31.5 L RDW Std Deviation 47.0 H RDW Coeff of Brian 13.2 Plt Count 261 MPV 8.8 Immature Gran % (Auto) 2.100 H Neut % (Auto) 71.0 H Lymph % (Auto) 12.7 L Wayne % (Auto) 7.3 Eos % (Auto) 6.6 H Baso % (Auto) 0.3 Absolute Neuts (auto) 11.8 H Absolute Lymphs (auto) 2.11 Nucleated RBC % 0 PT 11.8 INR 0.9 APTT 22.8 L Sodium 139 Potassium 4.0 Chloride 101 Carbon Dioxide 36.0 H Anion Gap 2 L BUN 16 Creatinine 0.91 Estim Creat Clear Calc 82.70 Est GFR (MDRD) Af Amer 108 Est GFR (MDRD) Non-Af 89 BUN/Creatinine Ratio 17.5 Glucose 115 H Lactic Acid 1.6 Calcium 8.6 Total Bilirubin 0.40 Direct Bilirubin 0.10 AST 21 ALT 52 Alkaline Phosphatase 86 Troponin I High Sens 8 B-Natriuretic Peptide 11.7 Total Protein 6.4 Albumin 2.9 L Globulin 3.5 Lipase 15 Urine Color Yellow Urine Clarity Sl. Cloudy Urine pH 7.0 Ur Specific [place] 1.010 Urine Protein 15 H Urine Glucose (UA) Normal Urine Ketones Negative Urine Occult Blood Negative Urine Nitrite Negative Urine Bilirubin Negative Urine Urobilinogen Normal Ur Leukocyte Esterase Negative Urine RBC 0 SEEN Urine WBC 0 SEEN Ur Squamous Epith Cells 0 SEEN Amorphous Sediment 2+ Urine Bacteria 0 SEEN Urine Mucus 0 SEEN ABG Data ABG results: ABG 05/30/24 23:44 Specimen Type ART Sample Site L Radial pH 7.39 Bicarbonate Actual 36.3 H Total CO2 38 Base Excess 11 H O2 Saturation 97 O2 % 2.0 ABG pCO2 60.7 H ABG pO2 92 Wilmer Test Positive O2 Delivery Device Cannula Vent Mode Not entered Radiography Diagnostic Testing: Clinical Impression(s) from Imaging Studies Abdomen/Pelvis CT 05/31/24 23:37 IMPRESSION: No acute findings in the abdomen/pelvis. Electronically Signed: Quoc Carrillo MD at 1:02 EST Reading Location ID and State: [facility] / [place] Tel , Service support , Chest CTA 05/31/24 23:37 IMPRESSION: 1. No pulmonary embolism or other acute findings in the chest. 2. Moderate to severe centrilobular emphysematous changes. The presence of pulmonary emphysema on CT is an independent risk factor for lung cancer, recommend consideration for low-dose CT (LDCT) lung cancer screening in the future. This current chest CT serves as a baseline, a follow-up LDCT screening examination would be recommended in 12 months. Electronically Signed: Quoc Carrillo MD at 1:11 EST , Discharge Plan Triage Chief Complaint: Shortness of Breath ED Provider: Alcides Hanks Dx/Rx/DC Orders Clinical Impression: COPD exacerbation Prescriptions: New doxycycline hyclate 100 mg capsule 100 mg PO BID 10 Days Qty: 20 0RF prednisone 50 mg tablet 50 mg PO DAILY 5 Days Qty: 5 0RF No Action cyclobenzaprine 10 mg tablet 10 mg PO BID nystatin 100,000 unit/mL Suspension 500,000 unit PO 4X/DAY 7 Days Qty: 140 0RF Mucus DM 30-600 mg tablet extended release 12 hr 1 tab PO Q12H PRN (Reason: cough) Qty: 14 0RF amoxicillin-pot clavulanate 875-125 mg Tablet 1 tab PO BID Qty: 10 0RF prednisone 20 mg tablet 40 mg PO DAILY Qty: 10 0RF albuterol sulfate [Ventolin HFA] 90 mcg/actuation HFA aerosol inhaler 1 - 2 puff inhalation Q4H PRN PRN (Reason: Wheezing) Qty: 1 0RF ipratropium-albuterol 0.5 mg-3 mg(2.5 mg base)/3 mL solution for nebulization 1.5 ml inhalation Q8H PRN (Reason: copd) loratadine [Allergy Relief (loratadine)] 10 mg tablet 10 mg PO Q24H PRN (Reason: allergy symptoms) Trelegy Ellipta 100-62.5-25 mcg blister with device 1 ea inhalation DAILY tamsulosin 0.4 mg capsule 0.4 mg PO DAILY omeprazole 20 mg capsule,delayed release(DR/EC) 20 mg PO DAILY diphenhydramine HCl 25 mg capsule 50 mg PO TID PRN (Reason: allergic reaction) Qty: 20 0RF amlodipine [Norvasc] 2.5 mg tablet 2.5 mg PO DAILY Qty: 30 0RF Primary Care Provider: Iker Blackwell Referrals: Iker Blackwell MD [Primary Care Provider] - Activity Restrictions/Additional Instructions: Follow-up with your primary care physician outpatient setting. Return with worsening symptoms or concerns. Use inhalers as prescribed. Use prescriptions as prescribed. Print Language: [place] Disposition Disposition: Home, Self Care
[2024-05-31] VITALS (9 sets, daily range): BP systolic 128–172; BP diastolic 76–110; PULSE 98–106; RESP 16–36; TEMP 36.9–37.2; O2SAT 94–99
[2024-05-31 00:14] LABS: AST(SGOT) 21 U/L (15-37); Alanine Aminotransfer ALT/SGPT 52 U/L (16-61); Albumin, Serum 2.9 g/dL (3.2-5.0); Alkaline Phosphatase 86 U/L (45-117); Anion Gap 2 (5-15); BUN 16 mg/dL (7-18); BUN/Creat Ratio 17.5 RATIO (10-20); Calcium,Total 8.6 mg/dL (8.5-10.1); Chloride 101 mmol/L (98-107); Creatinine, Serum 0.91 mg/dL (0.70-1.30); EST Glomerular Filtration Rate 89 mL/min (>60); Est Glom Filt Rate - Afr Amer 108 mL/min (>60); Globulin 3.5 g/dL (2.2-4.2); Glucose 115 mg/dL (74-106); Lipase 15 U/L (13-75); Protein, Total 6.4 g/dL (6.4-8.2); Sodium Level 139 mmol/L (136-145); Troponin-I HS 8 pg/mL (3.0-78.0)
[2024-05-31 00:16] LABS: International Normalized Ratio 0.9; Prothrombin Time (Protime)PT. 11.8 SECONDS (11.7-14.9)
[2024-05-31 00:17] LABS: Partial Thromboplast Time 22.8 Seconds (24.1-36.2)
[2024-05-31] MEDS: Ipratropium/Albuterol Sulfate 3 ML AMPUL.NEB INHALATION ×2 (00:17→00:44)
--- NOTE | 2024-05-31 00:23 | CPS ---
[0017] x1 Duoneb given to pt. in ER. Pre-tx: XG=408, RR=26 with diminished breath sounds and scattered wheezes. Post-tx: SK=846, RR=28 with clearer breath sounds and scattered wheezes.
[2024-05-31 00:25] LABS: BNP,B-Type NATRIURETIC PEPTIDE 11.7 pg/mL (0-100)
--- NOTE | 2024-05-31 00:38 | ED.RN ---
Attempted to call family member to obtain medication list per pt. request. No answer at this time. A voicemail was left for family member to callback
[2024-05-31 00:43] LABS: Lactic Acid 1.6 mmol/L (0.4-1.9)
--- NOTE | 2024-05-31 00:54 | CPS ---
[0044] x1 Duoneb given to pt. in ER. Pre-tx: TU=234, RR=24 with diminished breath sounds and scattered wheezes. Post-tx: ZD=590, RR=22 with clearer breath sounds and scattered wheezes.
[2024-05-31] MEDS: 0.9% Normal Saline (1000mL) 1,000 ML 999 ML IV ×2 (01:22→03:31)
[2024-05-31 01:57] LABS: Bacteria 0 SEEN /hpf (None Seen); Mucous, Urine 0 SEEN /hpf (<or=2+); Red Blood Cells-Urine 0 SEEN /hpf (0-5); Squamous Epithelial Cells - UA 0 SEEN /hpf (0-5); White Blood Cells 0 SEEN /hpf (0-5)
[2024-05-31 02:01] LABS: Color, Urine Yellow (Yellow); Glucose, Dipstick Normal (Normal); Ketone-Dipstick Negative (Negative); Leukocyte Esterase-Dipstick Negative /ul (Negative); Nitrite-Dipstick Negative (Negative); Occult Blood-Urine Negative /ul (Negative); Protein-Dipstick 15 mg/dl (Negative); Urine Bilirubin Dipstick Negative (Negative); Urine Clarity Sl. Cloudy (Clear); Urine Urobilinogen Normal (Normal)
[2024-05-31 02:18] LABS: Amorphous Sediment 2+
[2024-05-31] MEDS: Albuterol 2.5 MG/3 ML VIAL.NEB. INHALATION (03:14)
--- NOTE | 2024-05-31 03:27 | CPS ---
[0314] x1 Albuterol given to pt. Pre-tx: LZ=465, RR=28 with diminished breath sounds and scattered wheezes. Post-tx: OV=770, RR=30 with no significant improvement in pt.'s breathing or breath sounds.
[2024-05-31] MEDS: Doxycycline 100 MG CAPSULE PO (03:32)
[2024-05-31] MEDS: Terbutaline 1 MG/ML Vial 0.25 MG SC (03:32)
--- NOTE | 2024-05-31 05:04 | ED.RN ---
Pt received 2,500mls of NS- Order clarified with DR. gave verbal orders to administer 2,500 instead of ordered 3,500mls.
--- NOTE | 2024-05-31 05:53 | CPS ---
[9015] Albuterol not given to pt. at this time due to pt. sleeping comfortably at this time.
--- NOTE | 2024-05-31 06:56 | ED.RN ---
attempting to call daughter to arrange for pt to be picked up, no response. Voicemail left
--- NOTE | 2024-05-31 23:37 | CT_ITS ---
EXAM: CT ANGIOGRAPHY CHEST WITHOUT AND WITH INTRAVENOUS CONTRAST CLINICAL INDICATION: sob TECHNIQUE: Helically acquired angiography images were obtained of the chest without and with intravenous contrast. This CT exam was performed using one or more of the following dose reduction techniques: automated exposure control, adjustment of the mA and/or kV according to patient size, and/or use of iterative reconstruction technique. MIP reconstructed images were created and reviewed. CONTRAST: IV 100mL Isovue-370 RADIATION DOSE: CTDIvol = 11.93 mGy, DLP = 1084.63 mGy-cm COMPARISON: No relevant prior studies available. FINDINGS: PULMONARY ARTERIES: Unremarkable. Normal in caliber. No evidence of pulmonary embolism. AORTA: Unremarkable. Normal in caliber. No evidence of dissection. GREAT VESSELS OF AORTIC ARCH: Unremarkable. Normal in caliber. No evidence of dissection. LUNGS AND PLEURAL SPACES: Moderate to severe centrilobular emphysematous changes. Some scarring in the left lung apex and lingula. No mass. No pleural effusion or thickening. No pneumothorax. HEART: Unremarkable. Heart size is normal. No pericardial effusion. No significant coronary artery calcifications. MEDIASTINUM: Unremarkable. No mediastinal or hilar adenopathy. Esophagus is unremarkable. No hiatal hernia. THYROID: Unremarkable. No thyroid lesions. BONES/JOINTS: Degenerative changes of the spine. No suspicious lytic or blastic abnormality. CT/CTA Chest W/WO Contrast IMPRESSION: 1. No pulmonary embolism or other acute findings in the chest. 2. Moderate to severe centrilobular emphysematous changes. The presence of pulmonary emphysema on CT is an independent risk factor for lung cancer, recommend consideration for low-dose CT (LDCT) lung cancer screening in the future. This current chest CT serves as a baseline, a follow-up LDCT screening examination would be recommended in 12 months. Electronically Signed: Quoc Carrillo MD at 1:11 EST ,
--- NOTE | 2024-05-31 23:37 | CT_ITS ---
EXAM: CT ABDOMEN AND PELVIS WITH INTRAVENOUS CONTRAST CLINICAL INDICATION: abd pain TECHNIQUE: Helically acquired images were obtained of the abdomen and pelvis with intravenous contrast. This CT exam was performed using one or more of the following dose reduction techniques: automated exposure control, adjustment of the mA and/or kV according to patient size, and/or use of iterative reconstruction technique. CONTRAST: IV 100mL Isovue-370 RADIATION DOSE: CTDIvol = 11.93 mGy, DLP = 1084.63 mGy-cm COMPARISON: No relevant prior studies available. FINDINGS: LOWER THORAX: Please see the separate CTA chest report. ABDOMEN: LIVER: Unremarkable. Homogeneous. No focal mass. GALLBLADDER AND BILE DUCTS: Unremarkable. No calcified gallstones. No gallbladder distention or wall edema. No intra- or extrahepatic biliary ductal dilation. PANCREAS: Unremarkable. No focal cystic or solid mass. SPLEEN: Unremarkable. Normal size without focal cystic or solid mass. ADRENALS: Unremarkable. No nodules. KIDNEYS AND URETERS: Unremarkable. Normal renal size and position. No hydronephrosis. STOMACH AND BOWEL: Unremarkable. No stomach or bowel distention. No focal inflammatory change. PELVIS: APPENDIX: The appendix is normal. BLADDER: Unremarkable. REPRODUCTIVE: Unremarkable as visualized. No mass. ABDOMEN and PELVIS: INTRAPERITONEAL SPACE: Unremarkable. No ascites or other fluid collection. No free air. BONES/JOINTS: Right hip arthroplasty. Degenerative changes of the spine. No suspicious lytic or blastic abnormality. SOFT TISSUES: Unremarkable. No discrete abdominal or pelvic wall hernia. VASCULATURE: Unremarkable. Abdominal aorta is non-dilated. LYMPH NODES: Unremarkable. No enlarged lymph nodes. CT/Abdomen/Pelvis W IV Cont ONLY IMPRESSION: No acute findings in the abdomen/pelvis. Electronically Signed: Quoc Carrillo MD at 1:02 EST ,
== END 2024-05-31 07:58 | disposition home or self-care (01) ==
PROVIDERS: Emergency Provider Emergency Medicine; PCP Family Medicine; Visit Provider Emergency Medicine
DX: J43.2 Centrilobular emphysema (principal); J96.12 Chronic respiratory failure with hypercapnia; I10 Essential (primary) hypertension; F17.200 Nicotine dependence, unspecified, uncomplicated; Z99.81 Dependence on supplemental oxygen; Z79.51 Long term (current) use of inhaled steroids; Z79.899 Other long term (current) drug therapy
CPT/HCPCS: 36600; 71275; 74177; 80048; 80076; 81001; 82803; 83605; 83690; 83880; 84484; 85025; 85610; 85730; 87040; 87086; 87088; 87631; 93005; 94640; 96361; 96372; 96374; 99285; Q9967; A4216

== ENCOUNTER 2024-06-02 17:03 | Day surgery (SDC) | payer MEDICAID, SELFPAY ==
[2024-06-02] VITALS (10 sets, daily range): BP systolic 132–152; BP diastolic 89–111; PULSE 78–109; RESP 16–20; TEMP 36.4–36.7; O2SAT 95–100; BMI 21.5
--- NOTE | 2024-06-02 17:33 | EDS_ITS ---
HPI <ANGELA Apodaca - Last Filed: 06/02/24 19:29> HPI - GI History of Present Illness Chief Complaint: Foreign Body Narrative Narrative: Patient presenting today with concerns for esophageal foreign body. He ate a piece of steak about 30 minutes ago that got stuck in his esophagus. He reports that this has happened several times in the past and he has required multiple endoscopies to retrieve impacted food. He was told that he needs to have his, esophagus stretched but is scared to have this done so he has not yet scheduled it. He recently got new dentures but they do not fit properly so he is not wearing them and is not able to properly chew his food. He denies chest pain and shortness of breath. [facility] <ANGELA Apodaca - Last Filed: 06/02/24 19:29> [facility] Medical History History of substance use History of alcohol abuse Smoker Emphysema lung Asthma COPD (chronic obstructive pulmonary disease) Hypertension Migraines TIA (transient ischemic attack) Adverse reaction to REEMA inhibitor drug Home Medications ?Medication ?Instructions ?Recorded ?Last Taken ?Type albuterol sulfate 90 mcg/actuation 1 - 2 puff inhalation Q4H PRN PRN 01/02/24 Unknown Rx aerosol inhaler (Ventolin HFA) Wheezing #1 ea fluticasone fur. 100 mcg-umeclid 1 ea inhalation DAILY breathing 01/21/24 Unknown History 62.5 mcg-vilant 25 mcg inhalat.powder (Trelegy Ellipta) ipratropium 0.5 mg-albuterol 3 mg 1.5 ml inhalation Q8H PRN copd 01/21/24 Unknown History (2.5 mg base)/3 mL nebulization soln loratadine 10 mg tablet (Allergy 10 mg PO Q24H PRN allergy symptoms 01/21/24 Unknown History Relief (loratadine)) omeprazole 20 mg capsule,delayed 20 mg PO DAILY reflux 01/21/24 Unknown History release tamsulosin 0.4 mg capsule 0.4 mg PO DAILY prostate 01/21/24 Unknown History amlodipine 2.5 mg tablet (Norvasc) 2.5 mg PO DAILY bp #30 tabs 01/22/24 Unknown Rx diphenhydramine HCl 25 mg capsule 50 mg (2 x 25 mg) PO TID PRN 01/22/24 Unknown Rx allergic reaction #20 caps cyclobenzaprine 10 mg tablet 10 mg PO BID spasm 05/17/24 Unknown History dextromethorphan-guaifenesin 30 1 tab PO Q12H PRN cough #14 tabs 05/18/24 Unknown Rx mg-600 mg tablet extended [id number] hr (Mucus DM) nystatin 100,000 unit/mL oral 500,000 unit (5 mL) PO 4X/DAY 7 05/18/24 Unknown Rx suspension days #140 mL amoxicillin 875 mg-potassium 1 tab PO BID #10 tabs 05/23/24 Unknown Rx clavulanate 125 mg tablet prednisone 20 mg tablet 40 mg (2 x 20 mg) PO DAILY #10 tabs 05/23/24 Unknown Rx doxycycline hyclate 100 mg capsule 100 mg PO BID 10 days #20 caps 05/31/24 U nknown Rx prednisone 50 mg tablet 50 mg PO DAILY 5 days #5 tabs 05/31/24 Unknown Rx Allergy/AdvReac Type Severity Reaction Status Date / Time lisinopril Allergy Severe Angioedema Verified 06/02/24 17:07 codeine Allergy Mild Itching Verified 06/02/24 17:07 Family History Mother Uterine cancer Father ETOH abuse Surgical History History of testicular surgery History of gastric surgery History of bilateral inguinal hernia repair History of total right hip replacement Social History household members: other details: His daugher and his grandson live with him. Smoking Status: Former smoker how long ago did patient quit smoking: Patient prior smoked up to 2 ppd, started at age 9, down to 1 pack max/week quit status: considering quitting alcohol intake: former substance use type: former substance user ROS <ANGELA Apodaca - Last Filed: 06/02/24 19:29> ROS ED Constitutional Constitutional ED: Denies chills or fever(s) Cardiovascular Cardiovascular: Denies chest pain Respiratory/Chest Respiratory/Chest: Denies cough or dyspnea Gastrointestinal Gastrointestinal: Denies abdominal pain, nausea or vomiting Musculoskeletal Musculoskeletal: Denies arthralgias or myalgias Integumentary Denies rash Neurologic Neurologic: Denies weakness EXAM <ANGELA Apodaca - Last Filed: 06/02/24 19:29> Physical Exam Const Vital Signs: 06/02/24 17:04 06/02/24 17:16 06/02/24 18:51 Temperature 98.1 F Temperature Source Oral Pulse Rate 109 H 78 Respiratory Rate 20 H 20 H Respiratory Pattern Normal Blood Pressure 148/89 H 140/93 H Blood Pressure Mean 108 108 Blood Pressure Source Monitor Blood Pressure Position Sitting Blood Pressure Location Right Arm Baseline BP Pulse Ox 97 95 Oxygen Delivery Method Nasal Cannula Nasal Cannula Oxygen Flow Rate (L/min) 3 3 06/02/24 18:53 06/02/24 19:24 06/02/24 19:29 Temperature 97.8 F 97.9 F Temperature Source Temporal Pulse Rate 78 104 H 98 Respiratory Rate 20 H 16 16 Respiratory Pattern Normal Blood Pressure 140/93 H 143/104 H 132/100 H Blood Pressure Mean 108 117 110 Blood Pressure Source Monitor Monitor Blood Pressure Position Semi-Fowlers Semi-Fowlers Blood Pressure Location Right Arm Right Arm Baseline BP 140/93 140/93 Pulse Ox 95 97 97 Oxygen Delivery Method Nasal Cannula Nasal Cannula Oxygen Flow Rate (L/min) 4 4 06/02/24 19:35 06/02/24 19:40 06/02/24 19:45 Temperature 97.6 F L Temperature Source Temporal Pulse Rate 107 H 104 H 103 H Respiratory Rate 16 16 16 Respiratory Pattern Blood Pressure 142/103 H 148/111 H 151/108 H Blood Pressure Mean 116 123 122 Blood Pressure Source Monitor Monitor Monitor Blood Pressure Position Semi-Fowlers Semi-Fowlers Semi-Fowlers Blood Pressure Location Right Arm Right Arm Right Arm Baseline BP 140/93 140/93 140/93 Pulse Ox 97 99 100 Oxygen Delivery Method Nasal Cannula Nasal Cannula Nasal Cannula Oxygen Flow Rate (L/min) 3 3 3 06/02/24 19:48 06/02/24 19:51 06/02/24 19:51 Temperature 97.9 F Temperature Source Pulse Rate 105 H Respiratory Rate 17 Respiratory Pattern Normal Blood Pressure 134/100 H 152/101 H Blood Pressure Mean 118 Blood Pressure Source Blood Pressure Position Blood Pressure Location Baseline BP 140/93 Pulse Ox 97 Oxygen Delivery Method Oxygen Flow Rate (L/min) Positive well nourished, well developed and no apparent distress General Appearance ED: well developed HEENT Reports normocephalic and head/scalp atraumatic Mouth ED: Yes moist mucous membranes normal Eyes PERRL and EOMs intact bilaterally Neck full ROM and supple Chest Wall inspection of chest normal Resp normal respiratory effort and clear to auscultation bilaterally Cardio regular rate and regular rhythm GI soft to palpation, non-tender, non-distended and no masses Back/Spine normal ROM and normal to inspection Extremity normal to inspection and full ROM Neuro oriented x3, CN's II-XII intact bilaterally, moves all extremities, no focal motor deficits and no sensory deficits noted Sensorium / Orientation: awake and alert Psych mental status grossly normal and thought process normal Skin no rashes or lesions noted and no wounds <Dr. Werner Hogan, DO - Last Filed: 06/02/24 22:41> Physical Exam Const Vital Signs: 06/02/24 17:04 06/02/24 17:16 06/02/24 18:51 Temperature 98.1 F Temperature Source Oral Pulse Rate 109 H 78 Respiratory Rate 20 H 20 H Respiratory Pattern Normal Blood Pressure 148/89 H 140/93 H Blood Pressure Mean 108 108 Blood Pressure Source Monitor Blood Pressure Position Sitting Blood Pressure Location Right Arm Baseline BP Pulse Ox 97 95 Oxygen Delivery Method Nasal Cannula Nasal Cannula Oxygen Flow Rate (L/min) 3 3 06/02/24 18:53 06/02/24 19:24 06/02/24 19:29 Temperature 97.8 F 97.9 F Temperature Source Temporal Pulse Rate 78 104 H 98 Respiratory Rate 20 H 16 16 Respiratory Pattern Normal Blood Pressure 140/93 H 143/104 H 132/100 H Blood Pressure Mean 108 117 110 Blood Pressure Source Monitor Monitor Blood Pressure Position Semi-Fowlers Semi-Fowlers Blood Pressure Location Right Arm Right Arm Baseline BP 140/93 140/93 Pulse Ox 95 97 97 Oxygen Delivery Method Nasal Cannula Nasal Cannula Oxygen Flow Rate (L/min) 4 4 06/02/24 19:35 06/02/24 19:40 06/02/24 19:45 Temperature 97.6 F L Temperature Source Temporal Pulse Rate 107 H 104 H 103 H Respiratory Rate 16 16 16 Respiratory Pattern Blood Pressure 142/103 H 148/111 H 151/108 H Blood Pressure Mean 116 123 122 Blood Pressure Source Monitor Monitor Monitor Blood Pressure Position Semi-Fowlers Semi-Fowlers Semi-Fowlers Blood Pressure Location Right Arm Right Arm Right Arm Baseline BP 140/93 140/93 140/93 Pulse Ox 97 99 100 Oxygen Delivery Method Nasal Cannula Nasal Cannula Nasal Cannula Oxygen Flow Rate (L/min) 3 3 3 06/02/24 19:48 06/02/24 19:51 06/02/24 19:51 Temperature 97.9 F Temperature Source Pulse Rate 105 H Respiratory Rate 17 Respiratory Pattern Normal Blood Pressure 134/100 H 152/101 H Blood Pressure Mean 118 Blood Pressure Source Blood Pressure Position Blood Pressure Location Baseline BP 140/93 Pulse Ox 97 Oxygen Delivery Method Oxygen Flow Rate (L/min) [facility] <ANGELA Apodaca - Last Filed: 06/02/24 19:29> [facility] Narrative Medical decision making narrative: Patient presenting today with a esophageal foreign body. He is having to spit out his saliva because he is unable to keep it down but otherwise is nontoxic- appearing. He is able to communicate with me without difficulty. He reports that this has happened multiple times in the past and he has required endoscopies before to retrieve food impactions. He was given 1 mg IV glucagon, we tried a carbonated beverage with no success. I did speak with Dr. Womack who will take patient to the OR in stable condition for foreign body retrieval. <Dr. Werner Hogan DO - Last Filed: 06/02/24 22:41> [facility] Narrative Medical decision making narrative: Patient presenting today with a esophageal foreign body. He is having to spit out his saliva because he is unable to keep it down but otherwise is nontoxic- appearing. He is able to communicate with me without difficulty. He reports that this has happened multiple times in the past and he has required endoscopies before to retrieve food impactions. He was given 1 mg IV glucagon, we tried a carbonated beverage with no success. I did speak with Dr. Womack who will take patient to the OR in stable condition for foreign body retrieval. Attending note: I have personally performed a face to face assessment of the patient and have reviewed the BENNETT note. I personally made/approved the management plan and take responsibility for the patient management. I performed a substantive portion of the visit including all aspects of the following. My boyd findings include: Steak impaction 30 minutes prior to arrival. 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 Last time with impaction 2 years ago in [place] with a grape required push through. Spitting up when he tries to drink. He has had relief with glucagon in the past along with jeanette demar. IV established glucagon given jeanette demar however no improvement. Now established with GI and is no GI available. Therefore discussed with on-call surgeon Dr. Womack who will take the patient to endoscopy suite for intervention. Discharge Plan Dx/Rx/DC Orders Clinical Impression: Esophageal foreign body, History of COPD Disposition Disposition: Acute Care Hospital [facility] Discharge Date/Time: 06/02/24 19:04
[2024-06-02] MEDS: Glucagon 1 MG/ML Syringe IV (17:49)
--- NOTE | 2024-06-02 19:21 | HP.PCM.SX_ITS ---
HPI - General HPI Narrative WOLF TURCIOS, is a 64 M who presents with a foreign body in his esophagus. The patient reports he was eating steak about an hour and a half ago and it got stuck. He thinks it is very high. He has had multiple EGDs in the past for removal of foreign bodies but he has never had dilation. He does not have any teeth and he does not have his dentures yet. [facility] Medical History History of substance use History of alcohol abuse Smoker Emphysema lung Asthma COPD (chronic obstructive pulmonary disease) Hypertension Migraines TIA (transient ischemic attack) Adverse reaction to REEMA inhibitor drug Home Medications ?Medication ?Instructions ?Recorded ?Last Taken ?Type albuterol sulfate 90 mcg/actuation 1 - 2 puff inhalation Q4H PRN PRN 01/02/24 Unknown Rx aerosol inhaler (Ventolin HFA) Wheezing #1 ea fluticasone fur. 100 mcg-umeclid 1 ea inhalation DAILY breathing 01/21/24 Unknown History 62.5 mcg-vilant 25 mcg inhalat.powder (Trelegy Ellipta) ipratropium 0.5 mg-albuterol 3 mg 1.5 ml inhalation Q8H PRN copd 01/21/24 Unknown History (2.5 mg base)/3 mL nebulization soln loratadine 10 mg tablet (Allergy 10 mg PO Q24H PRN allergy symptoms 01/21/24 Unknown History Relief (loratadine)) omeprazole 20 mg capsule,delayed 20 mg PO DAILY reflux 01/21/24 Unknown History release tamsulosin 0.4 mg capsule 0.4 mg PO DAILY prostate 01/21/24 Unknown History amlodipine 2.5 mg tablet (Norvasc) 2.5 mg PO DAILY bp #30 tabs 01/22/24 Unknown Rx diphenhydramine HCl 25 mg capsule 50 mg (2 x 25 mg) PO TID PRN 01/22/24 Unknown Rx allergic reaction #20 caps cyclobenzaprine 10 mg tablet 10 mg PO BID spasm 05/17/24 Unknown History dextromethorphan-guaifenesin 30 1 tab PO Q12H PRN cough #14 tabs 05/18/24 Unknown Rx mg-600 mg tablet extended [id number] hr (Mucus DM) nystatin 100,000 unit/mL oral 500,000 unit (5 mL) PO 4X/DAY 7 05/18/24 Unknown Rx suspension days #140 mL amoxicillin 875 mg-potassium 1 tab PO BID #10 tabs 05/23/24 Unknown Rx clavulanate 125 mg tablet prednisone 20 mg tablet 40 mg (2 x 20 mg) PO DAILY #10 tabs 05/23/24 Unknown Rx doxycycline hyclate 100 mg capsule 100 mg PO BID 10 days #20 caps 05/31/24 Unknown Rx prednisone 50 mg tablet 50 mg PO DAILY 5 days #5 tabs 05/31/24 Unknown Rx Allergy/AdvReac Type Severity Reaction Status Date / Time lisinopril Allergy Severe Angioedema Verified 06/02/24 17:07 codeine Allergy Mild Itching Verified 06/02/24 17:07 Family History Mother Uterine cancer Father ETOH abuse Surgical History History of testicular surgery History of gastric surgery History of bilateral inguinal hernia repair History of total right hip replacement Social History household members: other details: His daugher and his grandson live with him. Smoking Status: Former smoker how long ago did patient quit smoking: Patient prior smoked up to 2 ppd, start ed at age 9, down to 1 pack max/week quit status: considering quitting alcohol intake: former substance use type: former substance user ROS Constitutional Constitutional: Denies anorexia, chills, fatigue or fever(s) Eyes Eyes: Denies blurry vision ENT HEENT: Reports dysphagia Cardiovascular Cardiovascular: Denies chest pain Respiratory/Chest Respiratory/Chest: Reports dyspnea and dyspnea on exertion; Denies cough Gastrointestinal Gastrointestinal: Denies abdominal pain Genitourinary Genitourinary: Denies change in urinary stream Musculoskeletal Musculoskeletal: Denies abnormal gait Integumentary Integumentary: Denies jaundice Vital Signs Vital Signs Vital Signs: 06/02/24 17:04 06/02/24 17:16 06/02/24 18:51 Temperature 98.1 F Temperature Source Oral Pulse Rate 109 H 78 Respiratory Rate 20 H 20 H Respiratory Pattern Normal Blood Pressure 148/89 H 140/93 H Blood Pressure Mean 108 108 Blood Pressure Source Monitor Blood Pressure Position Sitting Blood Pressure Location Right Arm Pulse Ox 97 95 Oxygen Delivery Method Nasal Cannula Nasal Cannula Oxygen Flow Rate (L/min) 3 3 06/02/24 18:53 Temperature 97.8 F Temperature Source Pulse Rate 78 Respiratory Rate 20 H Respiratory Pattern Blood Pressure 140/93 H Blood Pressure Mean 108 Blood Pressure Source Blood Pressure Position Blood Pressure Location Pulse Ox 95 Oxygen Delivery Method Oxygen Flow Rate (L/min) Weight Weight: 163 lb 5.8 oz Body Mass Index (BMI) 21.5 Physical Exam Const oriented x3 and no apparent distress Resp normal respiratory effort GI soft to palpation and non-tender Assessment & Plan Assessment/Plan (1) Esophageal foreign body: PLAN: The patient has poor dentition and he does not have any teeth. He was eating steak and it got stuck in his esophagus. This is an ongoing problem. I discussed EGD with removal of foreign body. I discussed the risks including but not limited to bleeding, perforation of the esophagus, aspiration. Patient understands the risks and is willing to proceed. Nabeel Womack MD Pager: [facility] [address] [place] [address], [address] [place] [address] Office:
--- NOTE | 2024-06-02 19:26 | OP.EGD_ITS ---
Patient Name: Be Walsh Procedure Date: 06/02/2024 6:49 PM Date of : 1960 Age: 64 Procedure: Upper GI endoscopy Indications: Foreign body in the esophagus Providers: Nabeel Womack MD Medicines: Propofol per Anesthesia Patient Profile: This is a 64 year old male. Refer to note in patient chart for documentation of history and physical. Complications: No immediate complications. Estimated blood loss: Minimal. Procedure: Pre-Anesthesia Assessment: - Prior to the procedure, a History and Physical was performed, and patient medications and allergies were reviewed. The patient's tolerance of previous anesthesia was also reviewed. The risks and benefits of the procedure and the sedation options and risks were discussed with the patient. All questions were answered, and informed consent was obtained. Prior Anticoagulants: The patient has taken no anticoagulant or antiplatelet agents. After reviewing the risks and benefits, the patient was deemed in satisfactory condition to undergo the procedure. After obtaining informed consent, the endoscope was passed under direct vision. Throughout the procedure, the patient's blood pressure, pulse, and oxygen saturations were monitored continuously. The Endoscope was introduced through the mouth, and advanced to the third part of duodenum. The upper GI endoscopy was accomplished without difficulty. The patient tolerated the procedure well. Scope In: 7:15:59 PM Scope Out: 7:17:01 PM Total Procedure Duration Time 0 hours 1 minute 2 seconds Findings: Food was found in the upper third of the esophagus. Removal was accomplished. Impression: - Food in the upper third of the esophagus. Removal was successful. Recommendation: - Discharge patient to home. - Resume previous diet. - Continue present medications. - Return to my office in 2 weeks. Procedure Code(s): --- Professional --- 10778, Esophagogastroduodenoscopy, flexible, transoral; with removal of foreign body(s) Diagnosis Code(s): --- Professional --- T18.128A, Food in esophagus causing other injury, initial encounter T18.108A, Unspecified foreign body in esophagus causing other injury, initial encounter CPT copyright 2021 [employer]. All rights reserved. The codes documented in this report are preliminary and upon health science specialist review may be revised to meet current compliance requirements. Nabeel Womack MD 06/02/2024 7:25:56 PM This report has been signed electronically. Number of Addenda: 0 Note Initiated On: 06/02/2024 6:49 PM
--- NOTE | 2024-06-02 19:26 | OP.CCLET_ITS ---
06/02/2024 Iker Blackwell Md Re : Upper GI endoscopy procedure for Be Espinal Rosalva This procedure was performed on May. My impressions and recommendations are as follows: Impressions : - Food in the upper third of the esophagus. Removal was successful. Recommendations : - Discharge patient to home. - Resume previous diet. - Continue present medications. - Return to my office in 2 weeks. My findings are described in the full procedure note, which is enclosed. If I can be of further assistance, please feel free to contact me at Doctor phone number(s): , Work: . Sincerely, Nabeel Womack MD 06/02/2024 7:25:56 PM This report has been signed electronically.
--- NOTE | 2024-06-02 19:48 | PCM.POST.ANE ---
Anesthesia: Postop Eval I Current Vital Signs Temperature: 97.9 F Pulse Rate: 105 Blood Pressure: 134/100 Respiratory Rate: 17 Pulse Ox: 97 Assessment Airway patent: Yes Spontaneous unlabored respirations: Yes nausea: No Vomiting: No Anesthesia Complication: No Fluid Hydration Crystalloid volume administer (ml): 250 Total IV fluid infused: 250 Progress Note Anesthesia document: Postop Eval 1 completed: Yes
--- NOTE | 2024-06-02 19:49 | POSTOPAN2_ITS ---
Anesthesia Postop Eval I Sum Postop Eval Completion status Anesthesia document: Postop Eval 1 completed: Yes Anesthesia Postop Eval I Summary Anesthesia Postop Eval I Summary: Anesthesia Postop Eval I: Assessment Summary Airway patent Yes 06/02/24 19:48 PARTS DEPARTMENT MANAGER.[email or web address] Spontaneous unlabored Yes 06/02/24 19:48 PARTS DEPARTMENT MANAGER.[email or web address] respirations Mental status nausea No 06/02/24 19:48 PARTS DEPARTMENT MANAGER.[email or web address] Vomiting No 06/02/24 19:48 PARTS DEPARTMENT MANAGER.JCOTE Anesthesia Postop Eval I: Fluid Summary Crystalloid volume administer 250 06/02/24 19:48 PARTS DEPARTMENT MANAGER.JCOTE (ml) Colloids volume administered ( ml) Blood Product volume administered (ml) Total IV fluid infused 250 06/02/24 19:48 PARTS DEPARTMENT MANAGER.JCOTE Anesthesia Postop Eval I: Summary Notes Anesthesia Complication No 06/02/24 19:48 PARTS DEPARTMENT MANAGER.[email or web address] Anesthesia Complication Comment: Post-operative progress note Anesthesia: Postop Eval II Evaluation Mental status: Awake Pain Level: 0 nausea: No Vomiting: No
--- NOTE | 2024-06-02 19:49 | PCM.POSTANE2 ---
Anesthesia Postop Eval I Sum Postop Eval Completion status Anesthesia document: Postop Eval 1 completed: Yes Anesthesia Postop Eval I Summary Anesthesia Postop Eval I Summary: Anesthesia Postop Eval I: Assessment Summary Airway patent Yes 06/02/24 19:48 REGISTERED PUBLIC HEALTH NURSE.[email or web address] Spontaneous unlabored Yes 06/02/24 19:48 REGISTERED PUBLIC HEALTH NURSE.JCOTE respirations Mental status nausea No 06/02/24 19:48 REGISTERED PUBLIC HEALTH NURSE.JCOTE Vomiting No 06/02/24 19:48 REGISTERED PUBLIC HEALTH NURSE.JCOTE Anesthesia Postop Eval I: Fluid Summary Crystalloid volume administer 250 06/02/24 19:48 REGISTERED PUBLIC HEALTH NURSE.JCOTE (ml) Colloids volume administered ( ml) Blood Product volume administered (ml) Total IV fluid infused 250 06/02/24 19:48 REGISTERED PUBLIC HEALTH NURSE.JCOTE Anesthesia Postop Eval I: Summary Notes Anesthesia Complication No 06/02/24 19:48 REGISTERED PUBLIC HEALTH NURSE.JCOTE Anesthesia Complication Comment: Post-operative progress note Anesthesia: Postop Eval II Evaluation Mental status: Awake Pain Level: 0 nausea: No Vomiting: No
== END 2024-06-02 19:59 | disposition home or self-care (01) ==
LOC: ED 18:48 → EN 19:00 → AC 19:01
PROVIDERS: Emergency Provider Emergency Medicine; PCP Family Medicine; Referring Provider Family Medicine; Visit Provider Surgery
PROC: 0DJ08ZZ Inspection of Upper Intestinal Tract, Via Natural or Artificial Opening Endoscopic (ICD-10-PCS; CPT 43235; principal; 2024-06-02 19:15)
DX: T18.128A Food in esophagus causing other injury, initial encounter (principal); J44.9 Chronic obstructive pulmonary disease, unspecified; Z87.891 Personal history of nicotine dependence; I10 Essential (primary) hypertension; Z79.51 Long term (current) use of inhaled steroids; Z86.73 Personal history of transient ischemic attack (TIA), and cerebral infarction without residual deficits; Z79.899 Other long term (current) drug therapy; Z96.641 Presence of right artificial hip joint; W44.F3XA Food entering into or through a natural orifice, initial encounter
CPT/HCPCS: 43247; 99285; A4216; J1610; J2405

== ENCOUNTER 2024-07-05 07:19 | Emergency (ER) | payer MEDICAID, SELFPAY ==
[2024-07-05 07:20] VITALS: BP 129/103; PULSE 82; RESP 22; TEMP 36.7; O2SAT 95; BMI 21.9
--- NOTE | 2024-07-05 07:28 | CT_ITS ---
STUDY: CT ABDOMEN AND PELVIS WITH CONTRAST - URINARY TRACT REASON FOR EXAM: Male, 64 years old. Left lower quadrant abdominal pain RADIATION DOSAGE (If Supplied By Facility): CTDIvol = ( 9.76 ) mGy, DLP = ( 741.52 ) mGycm TECHNIQUE: IV 100mL Isovue-300 was administered. Transaxial images were obtained from the dome of the diaphragm to the symphysis pubis in the arterial, nephrographic and excretory phases. Multiplanar coronal and sagittal images were reformatted. The protocol utilizes one or more of the following dose reduction techniques: automated exposure control, adjustment of mA and/or kV according to patient size,and/or use of iterative reconstruction technique. COMPARISON: May 31, 2024 FINDINGS: There are emphysematous changes within the visualized lung bases. There is grossly stable left basilar atelectasis and/or scarring. This. The visualized portions of the heart are within normal limits. Normal liver. Normal gallbladder and extrahepatic biliary system. Normal spleen. Normal pancreas. Normal bilateral adrenal glands. There is a small hiatal hernia. Normal small intestine. Normal colon. The appendix is visualized and appears normal. There is diffuse atherosclerotic calcification of the abdominal aorta, without a demonstrated aneurysm. No retroperitoneal adenopathy. Normal right kidney. There is mild left-sided hydroureteronephrosis secondary to 4.1 mm calculus within the distal ureter. Normal urinary bladder. Normal abdominal wall. There is a right total hip arthroplasty in place. There are degenerative changes of the visualized thoracic and lumbar spine. CT/Abdomen/Pelvis W IV Cont ONLY IMPRESSION: Left-sided hydroureteronephrosis secondary to a 4.1 mm calculus within the distal ureter. Atherosclerosis. Emphysema. The presence of pulmonary emphysema on CT is an independent risk factor for lung cancer, recommend consideration for low-dose CT (LDCT) lung cancer screening in the future. Electronically Signed: Lawanda Cui MD at 8:11 EST ,
[2024-07-05] MEDS: 0.9% Normal Saline (1000mL) 1,000 ML 999 ML IV (07:34)
[2024-07-05] MEDS: Morphine 2 MG/ML Syringe IV (07:34)
[2024-07-05] MEDS: Ondansetron 4 MG/2 ML Vial IV (07:34)
--- NOTE | 2024-07-05 07:34 | EX.ED.GENINJ ---
HPI History of Present Illness Chief Complaint: Other, Pain/Inj Narrative Narrative: Chief complaint and HPI: Left lower quadrant abdominal pain. 64-year-old male with past medical history of COPD on 3 L nasal cannula baseline, HTN, GERD presents for evaluation of left lower quadrant abdominal pain. Onset of pain was yesterday morning. Pain improved but then progressively worsened throughout the evening. Associated symptoms are nausea, dry heaves, constipation. Denies any fever, chills, chest pain, shortness of breath, diarrhea, dysuria. On chart review, patient had an EGD in May 2024 due to foreign body impaction of the esophagus. Patient states he had a colonoscopy about a year ago that was unremarkable however I do not have these records. Review of systems: See HPI Medications: As listed on the chart Allergies: As listed on the chart PFSH: Per chart Vital signs: As listed on the chart. Reviewed. Physical exam: Gen: A&O x3 Head: Normocephalic, atraumatic Eyes: No sclera icterus, conjunctiva clear ENT: Moist mucous membranes Neck: Trachea midline, No JVD CV: RRR, no murmurs, no peripheral edema Resp: Lungs CTA BL, no w/r/c, on baseline 3 L nasal cannula GI: Abd soft, non-distended, tender to palpation in the left lower quadrant, no r/r : No CVA tenderness Musc: Full ROM, no deformity Skin: Warm, dry Neuro: Alert, oriented, grossly intact, sensation intact Psych: Cooperative, appropriate mood and affect [facility] Medical History History of substance use History of alcohol abuse Smoker Emphysema lung Asthma COPD (chronic obstructive pulmonary disease) Hypertension Migraines TIA (transient ischemic attack) Adverse reaction to REEMA inhibitor drug Home Medications ?Medication ?Instructions ?Recorded ?Last Taken ?Type albuterol sulfate 90 mcg/actuation 1 - 2 puff inhalation Q4H PRN PRN 01/02/24 Unknown Rx aerosol inhaler (Ventolin HFA) Wheezing #1 ea fluticasone fur. 100 mcg-umeclid 1 ea inhalation DAILY breathing 01/21/24 Unknown History 62.5 mcg-vilant 25 mcg inhalat.powder (Trelegy Ellipta) ipratropium 0.5 mg-albuterol 3 mg 1.5 ml inhalation Q8H PRN copd 01/21/24 Unknown History (2.5 mg base)/3 mL nebulization soln loratadine 10 mg tablet (Allergy 10 mg PO Q24H PRN allergy symptoms 01/21/24 Unknown History Relief (loratadine)) omeprazole 20 mg capsule,delayed 20 mg PO DAILY reflux 01/21/24 Unknown History release tamsulosin 0.4 mg capsule 0.4 mg PO DAILY prostate 01/21/24 Unknown History amlodipine 2.5 mg tablet (Norvasc) 2.5 mg PO DAILY bp #30 tabs 01/22/24 Unknown Rx diphenhydramine HCl 25 mg capsule 50 mg (2 x 25 mg) PO TID PRN 01/22/24 Unknown Rx allergic reaction #20 caps cyclobenzaprine 10 mg tablet 10 mg PO BID spasm 05/17/24 Unknown History dextromethorphan-guaifenesin 30 1 tab PO Q12H PRN cough #14 tabs 05/18/24 Unknown Rx mg-600 mg tablet extended [id number] hr (Mucus DM) nystatin 100,000 unit/mL oral 500,000 unit (5 mL) PO 4X/DAY 7 05/18/24 Unknown Rx suspension days #140 mL amoxicillin 875 mg-potassium 1 tab PO BID #10 tabs 05/23/24 Unknown Rx clavulanate 125 mg tablet prednisone 20 mg tablet 40 mg (2 x 20 mg) PO DAILY #10 tabs 05/23/24 Unknown Rx doxycycline hyclate 100 mg capsule 100 mg PO BID 10 days #20 caps 05/31/24 Unknown Rx prednisone 50 mg tablet 50 mg PO DAILY 5 days #5 tabs 05/31/24 Unknown Rx Allergy/AdvReac Type Severity Reaction Status Date / Time lisinopril Allergy Severe Angioedema Verified 06/02/24 17:07 codeine Allergy Mild Itching Verified 06/02/24 17:07 Family History Mother Uterine cancer Father ETOH abuse Surgical History History of testicular surgery History of gastric surgery History of bilateral inguinal hernia repair History of total right hip replacement Social History household members: other details: His daugher and his grandson live with him. Smoking Status: Current some day smoker tobacco type: cigarettes how long ago did patient quit smoking: Patient prior smoked up to 2 ppd, started at age 9, down to 1 pack max/week quit status: considering quitting alcohol intake: former substance use type: former substance user EXAM Physical Exam Const Vital Signs: 07/05/24 07:20 07/05/24 09:19 Temperature 98.1 F Temperature Source Oral Pulse Rate 82 78 Respiratory Rate 22 H 18 Blood Pressure 129/103 H 137/86 H Blood Pressure Mean 111 103 Pulse Ox 95 Oxygen Delivery Method Nasal Cannula Oxygen Flow Rate (L/min) 3 MDM MDM MDM Narrative Medical decision making narrative: 64-year-old male with past medical history of COPD on 3 L nasal cannula baseline, HTN, GERD presents for evaluation of left lower quadrant abdominal pain. Differential diagnosis includes but is not limited to diverticulitis, constipation, colitis, UTI, obstruction, urolithiasis. Morphine, Zofran, NS bolus ordered. Abdominal pain workup including CT abdomen pelvis. CBC without leukocytosis or anemia. CMP without RENUKA or significant electrolyte abnormality. No transaminitis. Lipase unremarkable lactic acid unremarkable. CT abdomen pelvis shows left-sided hydroureteronephrosis secondary to a 4.1 mm calculus within the distal ureter. Patient has emphysema. On reevaluation, patient is still having pain. Toradol ordered. After urination, patient states his pain is significantly improved. Will do a postvoid residual to make sure he is not retaining. Postvoid residual 20 mL. UA is positive for blood which is consistent with his urolithiasis. Negative for UTI. On reevaluation, patient's pain is controlled and almost resolved. He may have passed it. Patient was given the option of admission for observation or discharge home with pain medication and follow-up with urology. He elected to discharge home. Patient will be discharged home. Return precautions explained. Impression: 1. 4.1 mm distal urolithiasis with left-sided hydroureteronephrosis 2. History of COPD Lab Data Labs: Laboratory Results - last 24 hr 07/05/24 07/05/24 07:25 09:28 WBC 6.5 RBC 5.05 Hgb 15.8 Hct 46.7 MCV 92.5 MCH 31.3 MCHC 33.8 RDW Std Deviation 44.9 H RDW Coeff of Brian 13.2 Plt Count 266 MPV 9.7 Immature Gran % (Auto) 0.300 Neut % (Auto) 56.3 Lymph % (Auto) 26.8 [place] % (Auto) 10.3 H Eos % (Auto) 5.1 H Baso % (Auto) 1.2 H Absolute Neuts (auto) 3.7 Absolute Lymphs (auto) 1.75 Nucleated RBC % 0 Sodium 142 Potassium 4.1 Chloride 107 Carbon Dioxide 30.0 Anion Gap 4 L BUN 11 Creatinine 0.96 Estim Creat Clear Calc 83.02 Est GFR (MDRD) Af Amer 101 Est GFR (MDRD) Non-Af 84 BUN/Creatinine Ratio 11.4 Glucose 105 Lactic Acid 1.4 Calcium 9.1 Total Bilirubin 0.50 AST 24 ALT 27 Alkaline Phosphatase 91 Total Protein 7.1 Albumin 3.5 Globulin 3.6 Albumin/Globulin Ratio 1.0 Lipase 19 Urine Color Yellow Urine Clarity Clear Urine pH 5.0 Ur Specific [place] 1.015 Urine Protein 30 H Urine Glucose (UA) Normal Urine Ketones Negative Urine Occult Blood 150 H Urine Nitrite Negative Urine Bilirubin Negative Urine Urobilinogen 4 H Ur Leukocyte Esterase 25 H Urine RBC 10-25 SEEN Urine WBC 0-5 SEEN Ur Squamous Epith Cells 0 SEEN Urine Bacteria 0 SEEN Urine Mucus 0 SEEN Radiography Diagnostic Testing: Clinical Impression(s) from Imaging Studies Abdomen/Pelvis CT 07/05/24 07:28 IMPRESSION: Left-sided hydroureteronephrosis secondary to a 4.1 mm calculus within the distal ureter. Atherosclerosis. Emphysema. The presence of pulmonary emphysema on CT is an independent risk factor for lung cancer, recommend consideration for low-dose CT (LDCT) lung cancer screening in the future. Electronically Signed: Lawanda Cui MD at 8:11 EST , Discharge Plan Triage Chief Complaint: Other, Pain/Inj ED Provider: Dale Galdamez Dx/Rx/DC Orders Prescriptions: No Action cyclobenzaprine 10 mg tablet 10 mg PO BID nystatin 100,000 unit/mL Suspension 500,000 unit PO 4X/DAY 7 Days Qty: 140 0RF Mucus DM 30-600 mg tablet extended release 12 hr 1 tab PO Q12H PRN (Reason: cough) Qty: 14 0RF amoxicillin-pot clavulanate 875-125 mg Tablet 1 tab PO BID Qty: 10 0RF prednisone 20 mg tablet 40 mg PO DAILY Qty: 10 0RF albuterol sulfate [Ventolin HFA] 90 mcg/actuation HFA aerosol inhaler 1 - 2 puff inhalation Q4H PRN PRN (Reason: Wheezing) Qty: 1 0RF ipratropium-albuterol 0.5 mg-3 mg(2.5 mg base)/3 mL solution for nebulization 1.5 ml inhalation Q8H PRN (Reason: copd) loratadine [Allergy Relief (loratadine)] 10 mg tablet 10 mg PO Q24H PRN (Reason: allergy symptoms) Trelegy Ellipta 100-62.5-25 mcg blister with device 1 ea inhalation DAILY tamsulosin 0.4 mg capsule 0.4 mg PO DAILY omeprazole 20 mg capsule,delayed release(DR/EC) 20 mg PO DAILY diphenhydramine HCl 25 mg capsule 50 mg PO TID PRN (Reason: allergic reaction) Qty: 20 0RF amlodipine [Norvasc] 2.5 mg tablet 2.5 mg PO DAILY Qty: 30 0RF doxycycline hyclate 100 mg capsule 100 mg PO BID 10 Days Qty: 20 0RF prednisone 50 mg tablet 50 mg PO DAILY 5 Days Qty: 5 0RF Primary Care Provider: Iker Blackwell Referrals: Iker Blackwell MD [Primary Care Provider] - Print Language: Sri Lankan
[2024-07-05 07:54] LABS: Absolute Lymphocyte Count 1.75 X10^3/uL (0.83-4.51); Absolute Neutrophil Count 3.7 X10^3/uL (2.0-7.7); Basophil# 0.08 X10^3/uL; Basophil% 1.2 % (0-1); Eosinophil# 0.33 X10^3/uL; Eosinophils% 5.1 % (0-5); Hematocrit 46.7 % (40-54); Hemoglobin 15.8 g/dL (13.0-16.5); Lymphocyte # 1.75 X10^3/ul (0.83-4.51); Lymphocyte % 26.8 % (19-41); Mean Corp Hgb Conc 33.8 g/dL (32-36); Mean Corpuscular Hgb 31.3 pg (27.0-32.0); Mean Corpuscular Volume 92.5 fL (80-94); Mean Platelet Vol. 9.7 fl (6.2-12.0); Monocyte# 0.67 X10^3/uL; Monocyte% 10.3 % (0-10); NRBC Flagged by Analyzer 0 % (0-5); Neutrophil # 3.67 X10^3/uL (2.7-7.7); Neutrophil % 56.3 % (47-70); Platelet Count 266 K/mm3 (150-450); RBC Distribution Width CV 13.2 % (11.6-14.6); RBC Distribution Width SD 44.9 fl (35.1-43.9); Red Blood Count 5.05 M/mm3 (4.6-6.2); White Blood Count 6.5 K/mm3 (4.4-11.0)
[2024-07-05 08:07] LABS: AST(SGOT) 24 U/L (15-37); Alanine Aminotransfer ALT/SGPT 27 U/L (16-61); Albumin, Serum 3.5 g/dL (3.2-5.0); Alkaline Phosphatase 91 U/L (45-117); Anion Gap 4 (5-15); BUN 11 mg/dL (7-18); BUN/Creat Ratio 11.4 RATIO (10-20); Calcium,Total 9.1 mg/dL (8.5-10.1); Chloride 107 mmol/L (98-107); Creatinine, Serum 0.96 mg/dL (0.70-1.30); EST Glomerular Filtration Rate 84 mL/min (>60); Est Glom Filt Rate - Afr Amer 101 mL/min (>60); Estimated Creatinine Clearance 83.02 ml/min; Globulin 3.6 g/dL (2.2-4.2); Glucose 105 mg/dL (74-106); Lipase 19 U/L (13-75); Potassium 4.1 mmol/L (3.5-5.1); Protein, Total 7.1 g/dL (6.4-8.2); Sodium Level 142 mmol/L (136-145)
[2024-07-05 08:12] LABS: Lactic Acid 1.4 mmol/L (0.4-1.9)
[2024-07-05] MEDS: Ketorolac 15 MG/ML Vial IV (08:32)
[2024-07-05 09:19] VITALS: BP 137/86; PULSE 78; RESP 18
[2024-07-05 09:34] LABS: Bacteria 0 SEEN /hpf (None Seen); Mucous, Urine 0 SEEN /hpf (<or=2+); Squamous Epithelial Cells - UA 0 SEEN /hpf (0-5)
[2024-07-05 09:50] LABS: Color, Urine Yellow (Yellow); Glucose, Dipstick Normal (Normal); Ketone-Dipstick Negative (Negative); Leukocyte Esterase-Dipstick 25 /ul (Negative); Nitrite-Dipstick Negative (Negative); Occult Blood-Urine 150 /ul (Negative); Protein-Dipstick 30 mg/dl (Negative); Specific Gravity, Urine 1.015 (1.002-1.030); Urine Bilirubin Dipstick Negative (Negative); Urine Clarity Clear (Clear); Urine Urobilinogen 4 mg/dl (Normal)
[2024-07-05 10:18] LABS: Red Blood Cells-Urine 10-25 SEEN /hpf (0-5); White Blood Cells 0-5 SEEN /hpf (0-5)
== END 2024-07-05 10:56 | disposition home or self-care (01) ==
PROVIDERS: Emergency Provider Surgery; PCP Family Medicine; Visit Provider Surgery
DX: N13.2 Hydronephrosis with renal and ureteral calculous obstruction (principal); J44.9 Chronic obstructive pulmonary disease, unspecified; F17.210 Nicotine dependence, cigarettes, uncomplicated; Z86.73 Personal history of transient ischemic attack (TIA), and cerebral infarction without residual deficits
CPT/HCPCS: 74177; 80053; 81001; 83605; 83690; 85025; 96361; 96374; 96375; 99284; Q9967; A4216; J2405

== ENCOUNTER → 2024-07-21 | Outpatient (CLI) | payer MEDICAID, SELFPAY ==
--- NOTE | 2024-07-21 14:41 | RAD_ITS ---
EXAM: XR Chest, 2 Views CLINICAL INDICATION: TECHNIQUE: Frontal and lateral views of the chest. COMPARISON: No relevant prior studies available. FINDINGS: LUNGS AND PLEURAL SPACES: Hyperlucent lungs. Flattening of the diaphragm. No consolidation. No pneumothorax. HEART: Unremarkable. No cardiomegaly. MEDIASTINUM: Unremarkable. Normal mediastinal contour. BONES/JOINTS: Unremarkable. No acute fracture. RAD/Chest PA and Lateral IMPRESSION: Suggestion of COPD. Reading Location: [facility]
== END | disposition home or self-care (01) ==
LOC: MTRAD 14:40
PROVIDERS: PCP Family Medicine; Referring Provider Family Medicine; Visit Provider Family Medicine
DX: R07.9 Chest pain, unspecified (principal); R06.02 Shortness of breath
CPT/HCPCS: 71046

== ENCOUNTER → 2024-08-02 | Outpatient (CLI) | payer MEDICAID, SELFPAY ==
--- NOTE | 2024-08-02 10:17 | EKG12_ITS ---
Test Reason : ATYPICAL CHEST PAIN Blood Pressure : */* mmHG Vent. Rate : 107 BPM Atrial Rate : 107 BPM P-R Int : 156 ms QRS Dur : 90 ms QT Int : 328 ms P-R-T Axes : 82 91 22 degrees QTcB Int : 437 ms Sinus tachycardia Rightward axis Cannot rule out Anterior infarct , age undetermined Abnormal ECG Confirmed by Ministerio Daly [id number]), editor house organ YENNY NUNEZ ([id number]) on 08/03/2024 6:04:39 AM Referred By: Iker Blackwell Confirmed By: Ministerio Daly
== END | disposition home or self-care (01) ==
LOC: PSN 10:16
PROVIDERS: PCP Family Medicine; Referring Provider Family Medicine; Visit Provider Family Medicine
DX: R07.89 Other chest pain (principal)
CPT/HCPCS: 93005

== ENCOUNTER → 2024-08-10 | Outpatient (CLI) | payer MEDICAID, SELFPAY ==
--- NOTE | 2024-08-10 09:44 | STRESSREP ---
Stress Test Report Date: 08/10/2024 Procedure: Pharmacologic stress nuclear imaging study Indications: Chest pain Consent: Per the patient Procedure: The patient underwent pharmacologic (Regadenoson 0.4mg ) evaluation with a peak heart rate of 105 beats per minute (67%predicted maximal heart rate) and a peak blood pressure of 138/90 mmHg. The baseline ECG demonstrated sinus rhythm. The peak pharmacologic ECG demonstrated no ischemic changes. There were no cardiac dysrhythmias pretest, during pharmacologic infusion, or recovery. There was no complaint of chest discomfort during pharmacologic infusion or recovery. The patient was injected with 11.9 millicuries of technetium 99m Cardiolite and subsequently rest SPECT Cardiolite nuclear imaging was obtained in the horizontal long, vertical long, and short axis views. The patient underwent pharmacologic (Regadenoson) evaluation. The patient was injected with 34.3 millicuries of technetium 99m Cardiolite and subsequently stress SPECT Cardiolite nuclear imaging was obtained in the horizontal long, vertical long, and short axis views. A gated Cardiolite study at peak stress was obtained. The examination was stopped secondary to completion of protocol. Rest and stress SPECT Cardiolite nuclear imaging status post realignment, normalization, and attenuation correction demonstrate no fixed or reversible perfusion defects. There is end systolic thickening and brightening. The gated Cardiolite study demonstrates myocardial thickening and inward wall motion. The reported LVEF is 52%. Impression: 1. Pharmacologic (Regadenoson) evaluation 2. Peak pharmacologic ECG with no ischemic changes. 3. There were no cardiac dysrhythmias pretest, during pharmacologic infusion, or recovery. 5. Rest and stress SPECT Cardiolite nuclear imaging demonstrate relative uniform tracer uptake and myocardial perfusion appearing within normal limits. 6. The gated Cardiolite study reports an LVEF of 52%. This note was generated with [employer] software. It may contain incorrect words, spelling, and punctuation that were not noted in checking the note before signing.
== END | disposition home or self-care (01) ==
PROVIDERS: PCP Family Medicine; Referring Provider Family Medicine; Visit Provider Family Medicine
DX: R07.89 Other chest pain (principal)
CPT/HCPCS: 78452; 93017; A9500; A4216; J2785

== ENCOUNTER 2024-08-18 10:01 | Emergency (ER) | payer MEDICAID, SELFPAY ==
[2024-08-18 10:02] VITALS: BP 148/94; PULSE 115; RESP 17; TEMP 36.8; O2SAT 97; BMI 19.5
--- NOTE | 2024-08-18 10:56 | EX.ED.VIS.UR ---
HPI HPI - URI History of Present Illness Chief Complaint: Ear Problem Informant: patient Onset/Context/Timing Onset: Weeks (1) Context: Gradual Onset Timing: Continuous Quality: Sharp Location: Right ear and right upper gums Worsened by: - (Nothing) Relieved by: - (Nothing) Associated Symptoms Associated Symptoms: Positive for Headache, Sinus Pressure, Shortness of Breath and Productive Cough; Negative for Nasal Congestion, Myalgias, Nausea, Vomiting, Diarrhea, Chest Pain, Nonproductive cough or Hemoptysis Narrative Narrative: Patient presents with right ear pain and right upper mouth pain that has been getting worse over the past week. Patient states he had dental extraction several years ago but the gum never closed over the extraction site. Patient states he gets frequent infections because of this. Patient describes his pain as sharp. Patient states it is constant. Patient states that it is in the right ear and right upper gums. Patient also admits to some pain over his right maxilla. Patient states nothing makes it better nothing makes it worse. Patient admits to occasional cough with green sputum. Patient admits to some shortness of breath but has a history of COPD. ROS [facility] ED Constitutional Constitutional ED: Denies chills or fever(s) Eyes Eyes: Denies blurry vision or change in vision ENT ENT ED: Reports ear pain right; Denies rhinorrhea or sore throat Cardiovascular Cardiovascular: Denies chest pain or palpitations Respiratory/Chest Respiratory/Chest: Reports cough and dyspnea Gastrointestinal Gastrointestinal: Denies nausea or vomiting Genitourinary Genitourinary ED: Denies dysuria or hematuria Musculoskeletal Musculoskeletal: Reports neck pain; Denies back pain Integumentary Denies abscess or rash Neurologic Neurologic: Reports headache(s); Denies weakness Allergic/Immunologic Allergic/Immunologic ED: Denies mouth swelling or urticaria [facility] Medical History History of substance use History of alcohol abuse Smoker Emphysema lung Asthma COPD (chronic obstructive pulmonary disease) Hypertension Migraines TIA (transient ischemic attack) Adverse reaction to REEMA inhibitor drug Home Medications ?Medication ?Instructions ?Recorded ?Last Taken ?Type albuterol sulfate 90 mcg/actuation 1 - 2 puff inhalation Q4H PRN PRN 01/02/24 Unknown Rx aerosol inhaler (Ventolin HFA) Wheezing #1 ea fluticasone fur. 100 mcg-umeclid 1 ea inhalation DAILY breathing 01/21/24 Unknown History 62.5 mcg-vilant 25 mcg inhalat.powder (Trelegy Ellipta) ipratropium 0.5 mg-albuterol 3 mg 1.5 ml inhalation Q8H PRN copd 01/21/24 Unknown History (2.5 mg base)/3 mL nebulization soln loratadine 10 mg tablet (Allergy 10 mg PO Q24H PRN allergy symptoms 01/21/24 Unknown History Relief (loratadine)) omeprazole 20 mg capsule,delayed 20 mg PO DAILY reflux 01/21/24 Unknown History release tamsulosin 0.4 mg capsule 0.4 mg PO DAILY prostate 01/21/24 Unknown History amlodipine 2.5 mg tablet (Norvasc) 2.5 mg PO DAILY bp #30 tabs 01/22/24 Unknown Rx diphenhydramine HCl 25 mg capsule 50 mg (2 x 25 mg) PO TID PRN 01/22/24 Unknown Rx allergic reaction #20 caps cyclobenzaprine 10 mg tablet 10 mg PO BID spasm 05/17/24 Unknown History dextromethorphan-guaifenesin 30 1 tab PO Q12H PRN cough #14 tabs 05/18/24 Unknown Rx mg-600 mg tablet extended [id number] hr (Mucus DM) nystatin 100,000 unit/mL oral 500,000 unit (5 mL) PO 4X/DAY 7 05/18/24 Unknown Rx suspension days #140 mL amoxicillin 875 mg-potassium 1 tab PO BID #10 tabs 05/23/24 Unknown Rx clavulanate 125 mg tablet prednisone 20 mg tablet 40 mg (2 x 20 mg) PO DAILY #10 tabs 05/23/24 Unknown Rx doxycycline hyclate 100 mg capsule 100 mg PO BID 10 days #20 caps 05/31/24 Unknown Rx prednisone 50 mg tablet 50 mg PO DAILY 5 days #5 tabs 05/31/24 Unknown Rx ondansetron 4 mg disintegrating 4 mg PO Q8H PRN PRN Nausea #10 tabs 07/05/24 Unknown Rx tablet oxycodone-acetaminophen 5 mg-325 1 tab PO Q6H PRN pain 3 days #12 07/05/24 Unknown Rx mg tablet (Percocet) tabs amoxicillin 875 mg-potassium 875 mg PO Q12H #20 TABLETS 08/18/24 Unknown Rx clavulanate 125 mg tablet tramadol 50 mg tablet 50 mg PO Q6H PRN PRN Pain 3 days 08/18/24 Unknown Rx #12 tabs Allergy/AdvReac Type Severity Reaction Status Date / Time lisinopril Allergy Severe Angioedema Verified 08/18/24 10:04 codeine Allergy Mild Itching Verified 08/18/24 10:04 Family History Mother Uterine cancer Father ETOH abuse Surgical History History of testicular surgery History of gastric surgery History of bilateral inguinal hernia repair History of total right hip replacement Social History household members: other details: His daugher and his grandson live with him. Smoking Status: Current some day smoker tobacco type: cigarettes how long ago did patient quit smoking: Patient prior smoked up to 2 ppd, started at age 9, down to 1 pack max/week quit status: considering quitting alcohol intake: former substance use type: former substance user EXAM Physical Exam Const Vital Signs: 08/18/24 10:02 Temperature 98.3 F Temperature Source Temporal Pulse Rate 115 H Respiratory Rate 17 Blood Pressure 148/94 H Blood Pressure Mean 112 Pulse Ox 97 Oxygen Delivery Method Nasal Cannula Oxygen Flow Rate (L/min) 2 Positive well nourished and well developed General Appearance ED: well developed and NAD HEENT Reports moist mucous membranes HEENT Narrative: The right tympanic membrane was erythematous. There is also some mild erythema of the external auditory canal. There is no discharge or drainage noted. There is an open area of the right upper gingiva over the posterior molar area. There is no erythema or warmth noted. There is no fluctuance. There is no discharge or drainage. normocephalic and atraumatic Neck supple, no meningeal signs and no JVD Neuro oriented x3, CN's II-XII intact bilaterally and no sensory deficits noted Sensorium / Orientation: alert Motor Exam: strength 5/5 throughout Psych mental status grossly normal MDM MDM MDM Narrative Medical decision making narrative: Patient was advised that this is likely otitis media. Patient was given a prescription for Augmentin. Patient was given his first dose here. Patient also given a prescription for a short course of tramadol. Patient was instructed to follow-up with his primary care physician in 5 to 7 days. Patient was instructed to return if worse in any way. Patient understood and was agreeable with the plan. All questions were answered. Discharge Plan Triage Chief Complaint: Ear Problem ED Provider: Elijah Simpson Dx/Rx/DC Orders Clinical Impression: Acute right otitis media, History of COPD Instructions: ED Otitis Media Adult Prescriptions: New tramadol 50 mg tablet 50 mg PO Q6H PRN PRN (Reason: Pain) 3 Days Qty: 12 0RF amoxicillin-pot clavulanate 875-125 mg tablet 875 mg PO Q12H Qty: 20 0RF No Action cyclobenzaprine 10 mg tablet 10 mg PO BID nystatin 100,000 unit/mL Suspension 500,000 unit PO 4X/DAY 7 Days Qty: 140 0RF Mucus DM 30-600 mg tablet extended release 12 hr 1 tab PO Q12H PRN (Reason: cough) Qty: 14 0RF amoxicillin-pot clavulanate 875-125 mg Tablet 1 tab PO BID Qty: 10 0RF prednisone 20 mg tablet 40 mg PO DAILY Qty: 10 0RF ondansetron 4 mg tablet,disintegrating 4 mg PO Q8H PRN PRN (Reason: Nausea) Qty: 10 0RF oxycodone-acetaminophen [Percocet] 5-325 mg tablet 1 tab PO Q6H PRN (Reason: pain) 3 Days Qty: 12 0RF albuterol sulfate [Ventolin HFA] 90 mcg/actuation HFA aerosol inhaler 1 - 2 puff inhalation Q4H PRN PRN (Reason: Wheezing) Qty: 1 0RF ipratropium-albuterol 0.5 mg-3 mg(2.5 mg base)/3 mL solution for nebulization 1.5 ml inhalation Q8H PRN (Reason: copd) loratadine [Allergy Relief (loratadine)] 10 mg tablet 10 mg PO Q24H PRN (Reason: allergy symptoms) Trelegy Ellipta 100-62.5-25 mcg blister with device 1 ea inhalation DAILY tamsulosin 0.4 mg capsule 0.4 mg PO DAILY omeprazole 20 mg capsule,delayed release(DR/EC) 20 mg PO DAILY diphenhydramine HCl 25 mg capsule 50 mg PO TID PRN (Reason: allergic reaction) Qty: 20 0RF amlodipine [Norvasc] 2.5 mg tablet 2.5 mg PO DAILY Qty: 30 0RF doxycycline hyclate 100 mg capsule 100 mg PO BID 10 Days Qty: 20 0RF prednisone 50 mg tablet 50 mg PO DAILY 5 Days Qty: 5 0RF Primary Care Provider: Iker Blackwell Referrals: Iker Blackwell MD [Primary Care Provider] - 5-7 Days Print Language: Swiss Disposition Disposition: Home, Self Care
[2024-08-18 11:09] VITALS: BP 110/73; PULSE 97; RESP 20; TEMP 36.6; O2SAT 97
[2024-08-18] MEDS: Amox/Clavulanate 875 MG Tablet PO (11:14)
== END 2024-08-18 11:14 | disposition home or self-care (01) ==
PROVIDERS: Emergency Provider Emergency Medicine; PCP Family Medicine; Visit Provider Emergency Medicine
DX: H66.91 Otitis media, unspecified, right ear (principal); J44.9 Chronic obstructive pulmonary disease, unspecified; I10 Essential (primary) hypertension; F17.210 Nicotine dependence, cigarettes, uncomplicated; Z79.51 Long term (current) use of inhaled steroids; Z79.899 Other long term (current) drug therapy
CPT/HCPCS: 99282

== ENCOUNTER → 2024-09-21 | Outpatient (CLI) | payer MEDICAID, SELFPAY ==
--- NOTE | 2024-09-21 14:42 | US_ITS ---
PROCEDURE: TESTICULAR WITH ARTERIAL FLOW 09/21/2024 REASON FOR EXAM: PAIN TECHNIQUE: Shell scale imaging of the scrotal contents. FINDINGS: RIGHT testicle: Measures 4.7 x 3.4 x 2.3 cm Right epididymis: Measures 1.4 x 1.5 x 0.8 cm Right epididymal cysts measuring 0.5 x 0.6 x 0.3 cm LEFT testicle: Measures 4.5 x 2.9 x 2.8 cm Left epididymis: Measures 1.7 x 1.5 x 1.2 cm Left epididymal cyst measuring 0.8 x 0.7 x 0.4 cm. The testicles appear symmetric and isoechoic with bilateral arterial and venous flow seen. Bilateral [id number] appearing hydroceles are noted measuring approximately 4.3 x 5.3 x 2 cm on the right and 5.3 x 3.3 x 2.7 cm on the left. US/Testicular with Arterial Flow IMPRESSION: The testicles appear symmetric and isoechoic with bilateral arterial and venous flow seen. Bilateral [id number] appearing hydroceles are noted measuring approximate ly 4.3 x 5.3 x 2 cm on the right and 5.3 x 3.3 x 2.7 cm on the left. Reading Location: [id number]
== END | disposition home or self-care (01) ==
LOC: US 14:40
PROVIDERS: PCP Family Medicine; Referring Provider Family Medicine; Visit Provider Family Medicine
DX: N48.89 Other specified disorders of penis (principal)
CPT/HCPCS: 76870; 93976

== ENCOUNTER → 2024-11-23 | Outpatient (CLI) | payer MEDICAID, SELFPAY ==
[2024-11-24 14:08] LABS: PSA, Free 1.02 ng/mL; PSA, Free % 11.6 % (.)
== END | disposition home or self-care (01) ==
PROVIDERS: PCP Family Medicine
DX: R97.20 Elevated prostate specific antigen [PSA] (principal)
CPT/HCPCS: 84154; 36415; 84153

== ENCOUNTER → 2024-11-25 | Outpatient (CLI) | payer MEDICAID, SELFPAY ==
--- NOTE | 2024-11-25 13:59 | ECHOD_ITS ---
Reason For Study Reason For Study: CHEST PAIN, ATYPICAL Procedure This was a 2D Doppler, Color Flow transthoracic echocardiogram. Exam performed in department. Left Ventricle Normal LV size. The estimated ejection fraction is 50 %. No evidence for diastolic dysfunction. There is borderline global hypokinesis of the left ventricle. Right Ventricle Normal RV size. Normal systolic function. Atria The left and right atria are normal. No doppler evidence for ASD. Mitral Valve There is no mitral valve stenosis. No mitral valve insufficiency. Tricuspid Valve There is no tricuspid stenosis. Unable to estimate RV systolic pressure due to inadequate jet, pulmonary artery pressure probably normal. Aortic Valve Trisinus/trileaflet aortic valve. There is no aortic stenosis. No aortic valve insufficiency. Pulmonic Valve There is no pulmonic valvular stenosis. No pulmonic valve insufficiency. Great Vessels Normal sized aortic root. Pericardium/Pleural No pericardial effusion. MMode/2D Measurements & Calculations LVIDd: 4.5 cm IVSd: 1.2 cm Ao root diam: 3.6 cm LVIDs: 3.8 cm LVPWd: 1.2 cm RVDd: 2.6 cm FS: 16.3 % LAV(MOD-bp): 32.9 ml LVAd ap4: 28.7 cm2 LVAd ap2: 26.1 cm2 LAV(MOD-bp) Indexed: 16.6 ml/m2 LVLd ap4: 8.3 cm LVLd ap2: 8.1 cm LAV(MOD-sp2): 31.5 ml EDV(MOD-sp4): 79.8 ml EDV(MOD-sp2): 71.3 ml LAV(MOD-sp4): 31.2 ml EDV(sp4-el): 83.7 ml EDV(sp2-el): 71.1 ml LVAs ap4: 20.4 cm2 LVAs ap2: 18.3 cm2 LVLs ap4: 7.2 cm LVLs ap2: 6.9 cm ESV(MOD-sp4): 49.9 ml ESV(MOD-sp2): 40.8 ml ESV(sp4-el): 49.0 ml ESV(sp2-el): 41.4 ml EF(MOD-sp4): 37.5 % EF(MOD-sp2): 42.9 % EF(sp4-el): 41.4 % SV(MOD-sp4): 29.9 ml SV(MOD-sp2): 30.6 ml SV(sp4-el): 34.6 ml SI(MOD-sp4): 15.1 ml/m2 SI(MOD-sp2): 15.4 ml/m2 LA A4 area: 12.9 cm2 LA dimension(2D): 3.5 cm RA A4 area: 11.3 cm2 TAPSE: 1.7 cm Time Measurements MV dec time: 0.03 sec Doppler Measurements & Calculations MV E max tristan: 54.6 cm/sec Lat Peak E' Tristan: 5.2 cm/sec Med Peak E' Tristan: 7.9 cm/sec MV A max tristan: 113.3 cm/sec E/E' lat: 10.6 E/E' med: 7.0 MV E/A: 0.48 MV V2 max: 126.0 cm/sec Ao V2 max: 120.5 cm/sec LV V1 max: 101.0 cm/sec MV max P.3 mmHg Ao max P.8 mmHg LV V1 max P.1 mmHg MV V2 mean: 71.8 cm/sec Ao V2 mean: 93.3 cm/sec LV V1 mean P.2 mmHg MV mean P.5 mmHg Ao mean P.7 mmHg LV V1 mean: 70.4 cm/sec MV V2 VTI: 17.3 cm Ao V2 VTI: 18.5 cm LV V1 VTI: 14.3 cm AV (velocity ratio): 0.77 PA V2 max: 85.5 cm/sec PA V2 mean: 62.6 cm/sec ECHO/Echo Complete Interpretation Summary The estimated ejection fraction is 50 %. There is borderline global hypokinesis of the left ventricle. No evidence for diastolic dysfunction. Ordering Physician: Iker Blackwell Referring Physician: Iker Blackwell Performed By: Nasra Hdez, SONIA, RVT
== END | disposition home or self-care (01) ==
PROVIDERS: PCP Family Medicine; Referring Provider Family Medicine; Visit Provider Family Medicine
DX: R07.89 Other chest pain (principal)
CPT/HCPCS: 93306

== ENCOUNTER 2025-02-01 15:31 | Emergency (ER) | payer MEDICAID, SELFPAY ==
[2025-02-01 15:32] VITALS: BP 117/78; PULSE 94; RESP 20; TEMP 37; O2SAT 97; BMI 22.5
--- NOTE | 2025-02-01 15:49 | EX.ED.DYSGE1 ---
HPI History of Present Illness Chief Complaint: Complaint Informant: patient Narrative Narrative: Brought in by EMS from home. Status post prostate biopsy today at [facility] in [place] followed by Dr. Alex Jha. History of enlarged prostate. He is not on any blood thinners. He left around noon little over 3 hours ago. States since then 2 bloody bowel movements. He called nursing line was told to call EMS to go to ED. No lightheaded symptoms. Prior similar symptoms: No PFSH PFSH Medical History History of substance use History of alcohol abuse Smoker Emphysema lung Asthma COPD (chronic obstructive pulmonary disease) Hypertension Migraines TIA (transient ischemic attack) Adverse reaction to REEMA inhibitor drug Home Medications ?Medication ?Instructions ?Recorded ?Last Taken ?Type albuterol sulfate 90 mcg/actuation 1 - 2 puff inhalation Q4H PRN PRN 01/02/24 Unknown Rx aerosol inhaler (Ventolin HFA) Wheezing #1 ea fluticasone fur. 100 mcg-umeclid 1 ea inhalation DAILY breathing 01/21/24 Unknown History 62.5 mcg-vilant 25 mcg inhalat.powder (Trelegy Ellipta) ipratropium 0.5 mg-albuterol 3 mg 1.5 ml inhalation Q8H PRN copd 01/21/24 Unknown History (2.5 mg base)/3 mL nebulization soln loratadine 10 mg tablet (Allergy 10 mg PO Q24H PRN allergy symptoms 01/21/24 Unknown History Relief (loratadine)) omeprazole 20 mg capsule,delayed 20 mg PO DAILY reflux 01/21/24 Unknown History release tamsulosin 0.4 mg capsule 0.4 mg PO DAILY prostate 01/21/24 Unknown History amlodipine 2.5 mg tablet (Norvasc) 2.5 mg PO DAILY bp #30 tabs 01/22/24 Unknown Rx diphenhydramine HCl 25 mg capsule 50 mg (2 x 25 mg) PO TID PRN 01/22/24 Unknown Rx allergic reaction #20 caps cyclobenzaprine 10 mg tablet 10 mg PO BID spasm 05/17/24 Unknown History dextromethorphan-guaifenesin 30 1 tab PO Q12H PRN cough #14 tabs 05/18/24 Unknown Rx mg-600 mg tablet extended [id number] hr (Mucus DM) nystatin 100,000 unit/mL oral 500,000 unit (5 mL) PO 4X/DAY 7 05/18/24 Unknown Rx suspension days #140 mL amoxicillin 875 mg-potassium 1 tab PO BID #10 tabs 05/23/24 Unknown Rx clavulanate 125 mg tablet prednisone 20 mg tablet 40 mg (2 x 20 mg) PO DAILY #10 tabs 05/23/24 Unknown Rx doxycycline hyclate 100 mg capsule 100 mg PO BID 10 days #20 caps 05/31/24 Unknown Rx prednisone 50 mg tablet 50 mg PO DAILY 5 days #5 tabs 05/31/24 Unknown Rx ondansetron 4 mg disintegrating 4 mg PO Q8H PRN PRN Nausea #10 tabs 07/05/24 Unknown Rx tablet oxycodone-acetaminophen 5 mg-325 1 tab PO Q6H PRN pain 3 days #12 07/05/24 Unknown Rx mg tablet (Percocet) tabs amoxicillin 875 mg-potassium 875 mg PO Q12H #20 TABLETS 08/18/24 Unknown Rx clavulanate 125 mg tablet tramadol 50 mg tablet 50 mg PO Q6H PRN PRN Pain 3 days 08/18/24 Unknown Rx #12 tabs docusate sodium 100 mg capsule 100 mg PO BID #60 caps 02/01/25 Unknown Rx (Colace) Allergy/AdvReac Type Severity Reaction Status Date / Time lisinopril Allergy Severe Angioedema Verified 02/01/25 15:35 codeine Allergy Mild Itching Verified 02/01/25 15:35 Family History Mother Uterine cancer Father ETOH abuse Surgical History History of testicular surgery History of gastric surgery History of bilateral inguinal hernia repair History of total right hip replacement Social History household members: other details: His daugher and his grandson live with him. Smoking Status: Current some day smoker tobacco type: cigarettes how long ago did patient quit smoking: Patient prior smoked up to 2 ppd, started at age 9, down to 1 pack max/week quit status: considering quitting alcohol intake: former substance use type: former substance user ROS ROS ED Constitutional Constitutional ED: Denies chills, fever(s) or sweats ENT ENT ED: Denies sore throat Cardiovascular Cardiovascular: Denies chest pain, leg edema, palpitations or racing heartbeat Respiratory/Chest Respiratory/Chest: Denies cough, dyspnea or dyspnea on exertion Gastrointestinal Gastrointestinal: Reports other Details: Rectal bleeding ; Denies abdominal pain, diarrhea, nausea or vomiting Genitourinary Genitourinary ED: Denies dysuria, hematuria or urinary frequency Musculoskeletal Musculoskeletal: Denies back pain, extremity pain or neck pain Integumentary Denies rash or wounds Neurologic Neurologic: Denies headache(s), paresthesias or weakness EXAM Physical Exam Const Vital Signs: 02/01/25 15:32 02/01/25 16:52 Temperature 98.6 F 98.1 F Temperature Source Oral Pulse Rate 94 100 Respiratory Rate 20 H 22 H Blood Pressure 117/78 103/73 Blood Pressure Mean 91 83 Pulse Ox 97 94 Oxygen Delivery Method Nasal Cannula Oxygen Flow Rate (L/min) 2 Positive well nourished and well developed Constitutional Narrative: Chronic oxygenation nasal cannula General Appearance ED: well developed and NAD HEENT Reports moist mucous membranes normocephalic and atraumatic Eyes General Eye ED: Yes normal appearance of both eyes; Negative for pale conjunctiva Neck full ROM Chest Wall Chest: Negative for tenderness Resp normal respiratory effort and normal air movement Effort and Inspection: symmetric chest movement; Negative for respiratory distress Cardio regular rate, regular rhythm and no murmurs Peripheral Pulses: pulses 2+ throughout GI normal to inspection, nondistended, normoactive bowel sounds and non-tender Palpation: Negative for guarding or rebound tenderness present Extremity normal to inspection General Extremety ED: Negative for edema or tenderness General Extremity: Negative for edema Neuro oriented x3 and no sensory deficits noted Sensorium / Orientation: awake and alert Skin no rashes or lesions noted and no wounds MDM MDM MDM Narrative Medical decision making narrative: Interventions / MDM: Differential diagnosis: Postop rectal bleed, status post prostate biopsy Diagnosis considered but do not suspect: N/A My EKG interpretation: N/A Imaging independently reviewed and interpreted by myself: N/A External documents reviewed: N/A Test considered but not ordered:N/A ED course: Vital stable status post prostate biopsy with rectal bleeding. Nursing reported a bladder ultrasound that was minimal. I performed bedside ultrasound also no enlarged bladder. Will check labs, will set up for an anoscopy for evaluation. Anoscopy upon retracting the scope there was some mild bleeding however there was no pulsatile bleeding noted during the procedure. Hemoglobin turn at 15. Is now any blood thinners. He is reassured of the findings. I discussed think should subside. However also discussed return precautions with the patient. He understands. All his questions were answered. He will follow-up with his urologist. Re-evaluation: stable Disposition discussed with patient/family/significant other: Patient Case discussed with consulting clinician: N/A This note was generated with [employer] dictation software. It may contain incorrect words, spelling, and punctuation that were not noted in checking the note before signing. Lab Data Labs: Laboratory Results - last 24 hr 02/01/25 15:39 WBC 9.2 RBC 4.82 Hgb 15.0 Hct 44.0 MCV 91.3 MCH 31.1 MCHC 34.1 RDW Std Deviation 42.8 RDW Coeff of Brian 12.9 Plt Count 241 MPV 9.6 Immature Gran % (Auto) 0.300 Neut % (Auto) 65.8 Lymph % (Auto) 20.2 Rusk % (Auto) 10.1 H Eos % (Auto) 2.8 Baso % (Auto) 0.8 Absolute Neuts (auto) 6.1 Absolute Lymphs (auto) 1.86 Nucleated RBC % 0 PT 13.8 INR 1.0 APTT 28.8 Sodium 139 Potassium 3.6 Chloride 102 Carbon Dioxide 27.5 Anion Gap 9 BUN 11 Creatinine 1.04 Estim Creat Clear Calc 78.56 Est GFR (MDRD) Non-Af 80 BUN/Creatinine Ratio 10.6 Glucose 128 H Calcium 8.8 Discharge Plan Triage Chief Complaint: Complaint ED Provider: Werner Hogan Dx/Rx/DC Orders Clinical Impression: Post-op bleeding, H/O prostate biopsy Instructions: Prostate Needle Biopsy, ED Post Op Wound Check, Bleeding Prescriptions: New docusate sodium [Colace] 100 mg capsule 100 mg PO BID Qty: 60 0RF No Action cyclobenzaprine 10 mg tablet 10 mg PO BID nystatin 100,000 unit/mL Suspension 500,000 unit PO 4X/DAY 7 Days Qty: 140 0RF Mucus DM 30-600 mg tablet extended release 12 hr 1 tab PO Q12H PRN (Reason: cough) Qty: 14 0RF amoxicillin-pot clavulanate 875-125 mg Tablet 1 tab PO BID Qty: 10 0RF prednisone 20 mg tablet 40 mg PO DAILY Qty: 10 0RF ondansetron 4 mg tablet,disintegrating 4 mg PO Q8H PRN PRN (Reason: Nausea) Qty: 10 0RF oxycodone-acetaminophen [Percocet] 5-325 mg tablet 1 tab PO Q6H PRN (Reason: pain) 3 Days Qty: 12 0RF tramadol 50 mg tablet 50 mg PO Q6H PRN PRN (Reason: Pain) 3 Days Qty: 12 0RF amoxicillin-pot clavulanate 875-125 mg tablet 875 mg PO Q12H Qty: 20 0RF albuterol sulfate [Ventolin HFA] 90 mcg/actuation HFA aerosol inhaler 1 - 2 puff inhalation Q4H PRN PRN (Reason: Wheezing) Qty: 1 0RF ipratropium-albuterol 0.5 mg-3 mg(2.5 mg base)/3 mL solution for nebulization 1.5 ml inhalation Q8H PRN (Reason: copd) loratadine [Allergy Relief (loratadine)] 10 mg tablet 10 mg PO Q24H PRN (Reason: allergy symptoms) Trelegy Ellipta 100-62.5-25 mcg blister with device 1 ea inhalation DAILY tamsulosin 0.4 mg capsule 0.4 mg PO DAILY omeprazole 20 mg capsule,delayed release(DR/EC) 20 mg PO DAILY diphenhydramine HCl 25 mg capsule 50 mg PO TID PRN (Reason: allergic reaction) Qty: 20 0RF amlodipine [Norvasc] 2.5 mg tablet 2.5 mg PO DAILY Qty: 30 0RF doxycycline hyclate 100 mg capsule 100 mg PO BID 10 Days Qty: 20 0RF prednisone 50 mg tablet 50 mg PO DAILY 5 Days Qty: 5 0RF Primary Care Provider: Iker Blackwell Referrals: Iker Blackwell MD [Primary Care Provider] - Activity Restrictions/Additional Instructions: Status post prostate biopsy with bleeding. Hemoglobin is 15. Anoscopy 5 bleeding with retraction of the anoscopy. Take stool softeners as prescribed twice a day to avoid irritation. follow-up with your urologist. Print Language: Spanish Disposition Disposition: Home, Self Care Discharge Date/Time: 02/01/25 16:53
[2025-02-01 16:01] LABS: Hematocrit 44.0 % (40-54); Hemoglobin 15.0 g/dL (13.0-16.5); Immature Granulocytes Count 0.030 X10^3/uL (0.0-0.0); Mean Corp Hgb Conc 34.1 g/dL (32-36); Mean Corpuscular Volume 91.3 fL (80-94); Mean Platelet Vol. 9.6 fl (6.2-12.0); NRBC Flagged by Analyzer 0 % (0-5); Platelet Count 241 K/mm3 (150-450); RBC Distribution Width CV 12.9 % (11.6-14.6); RBC Distribution Width SD 42.8 fl (35.1-43.9); Red Blood Count 4.82 M/mm3 (4.6-6.2); White Blood Count 9.2 K/mm3 (4.4-11.0)
[2025-02-01 16:13] LABS: Prothrombin Time (Protime)PT. 13.8 SECONDS (11.7-14.9)
[2025-02-01 16:14] LABS: Partial Thromboplast Time 28.8 Seconds (24.1-36.2)
[2025-02-01 16:18] LABS: Anion Gap 9 (5-15); BUN 11 mg/dL (4-19); BUN/Creat Ratio 10.6 RATIO (10-20); Calcium,Total 8.8 mg/dL (7.6-11.0); Carbon Dioxide 27.5 mmol/L (21.0-32.0); Chloride 102 mmol/L (98-108); Estimated Creatinine Clearance 78.56 ml/min (50-250); Glucose 128 mg/dL (70-99); Potassium 3.6 mmol/L (3.3-5.1)
[2025-02-01 16:52] VITALS: BP 103/73; PULSE 100; RESP 22; TEMP 36.7; O2SAT 94
== END 2025-02-01 16:53 | disposition home or self-care (01) ==
PROVIDERS: Emergency Provider Emergency Medicine; PCP Family Medicine; Visit Provider Emergency Medicine
DX: N99.820 Postprocedural hemorrhage of a genitourinary system organ or structure following a genitourinary system procedure (principal); J44.9 Chronic obstructive pulmonary disease, unspecified; F17.210 Nicotine dependence, cigarettes, uncomplicated; I10 Essential (primary) hypertension; Z86.73 Personal history of transient ischemic attack (TIA), and cerebral infarction without residual deficits; Z79.51 Long term (current) use of inhaled steroids; Z79.899 Other long term (current) drug therapy; Z96.641 Presence of right artificial hip joint
CPT/HCPCS: 80048; 85025; 85610; 85730; 99285

== ENCOUNTER → 2025-03-03 | Outpatient (CLI) | payer MEDICAID, SELFPAY ==
--- NOTE | 2025-03-03 10:01 | CDU_ITS ---
Reason For Study Reason For Study: Carotid stenosis Rt. Velocities/BP Lt. Velocities/BP Prox CCA 57.9/15.4 cm/sec. Prox CCA 64.1/21.2 cm/sec. Mid CCA 44.7/17.3 cm/sec. Mid CCA 60.8/19 cm/sec. Dist CCA 46.6/14.5 cm/sec. Dist CCA 54.2/17.9 cm/sec. Prox ICA 84.6/20.6 cm/sec. Prox ICA 44.3/14.6 cm/sec. Mid ICA 55.6/18.8 cm/sec. Mid ICA 48.7/19 cm/sec. Dist ICA 44.3/17.9 cm/sec. Dist ICA 50.9/21.2 cm/sec. Rt. ICA/CCA = 1.89. Lt. ICA/CCA = 0.84. Prox ECA 124.7/29.8 cm/sec. Prox ECA 82.8/22.3 cm/sec. Rt. Vert. 38.8/12.4 cm/sec. Lt. Vert. 27.3/10.7 cm/sec. Right Extracranial There is homogeneous, smooth atherosclerotic plaque noted in the right common carotid artery. There is heterogeneous, irregular atherosclerotic plaque noted in the right internal carotid artery. There is heterogeneous, irregular atherosclerotic plaque noted in the right external carotid artery. Antegrade flow is noted in the right vertebral artery. Left Extracranial There is homogeneous, smooth atherosclerotic plaque noted in the left common carotid artery. There is homogeneous, smooth atherosclerotic plaque noted in the left internal carotid artery. There is intimal thickening but no significant atherosclerotic plaque noted in the left external carotid artery. Antegrade flow is noted in the left vertebral artery. Procedure Carotid Duplex 41476. This is a Carotid Duplex examination using B-mode, color flow and specral Doppler. Exam performed in department. VL/Carotid Duplex Ultrasound Interpretation Summary Mild (<50%) stenosis right extracranial internal carotid. Mild (<50%) stenosis left extracranial internal carotid. Patent and antegrade vertebrals bilaterally. Ordering Physician: George Amaro Referring Physician: Iker Blackwell Performed By: Christina Felix RVT
== END | disposition home or self-care (01) ==
LOC: CVS 09:58
PROVIDERS: PCP Family Medicine; Referring Provider Ophthalmology; Visit Provider Ophthalmology
DX: I65.23 Occlusion and stenosis of bilateral carotid arteries (principal)
CPT/HCPCS: 93880

== ENCOUNTER → 2025-05-01 | Outpatient (CLI) | payer MEDICARE, MEDICAID, SELFPAY ==
--- NOTE | 2025-05-01 15:02 | RAD_ITS ---
PROCEDURE: CHEST PA AND LATERAL 05/01/2025 REASON FOR EXAM: SOB TECHNIQUE: Procedure Code: RADCXR Modality: DX Procedure: CHEST PA AND LATERAL COMPARISON: 07/21/2024 and 01/02/2024 FINDINGS: LUNGS AND PLEURA: Emphysematous lung changes with chronic scarring bilaterally. No focal airspace consolidation. No pleural effusion or pneumothorax. HEART AND MEDIASTINUM: The heart size and mediastinal contours are normal. BONES: No acute osseous abnormality. RAD/Chest PA and Lateral IMPRESSION: NO ACUTE FINDINGS. Reading Location: [id number]
== END | disposition home or self-care (01) ==
LOC: MTRAD 15:02
PROVIDERS: PCP Family Medicine; Referring Provider Family Medicine; Visit Provider Family Medicine
DX: J44.9 Chronic obstructive pulmonary disease, unspecified (principal)
CPT/HCPCS: 71046

== ENCOUNTER → 2025-05-31 | Outpatient (CLI) | payer MEDICARE, MEDICAID, SELFPAY ==
--- OUTSIDE RECORDS SUMMARY | 2025-05-31 09:46 | XMS RPT_ITS | CCD ---
Author Organization [facility] Inform ion Partnership [facility] Care Team Providers Care Elevator Installer Name Role Phone No, Physician Unavailable Unavailable Unavailable Primary Care Provider Unavailabl e No, Physician Primary Care Provider Unavailabl e No, Physician Primary Care Provider Unavailabl e García Gunn Primary Care Provider Karma Mark Primary Care Provider Karma Mark Primary Care Provider Karma Mark Primary Care Provider [phone] Thomas OBJECT ORIENTED PROGRAMMERKarma Primary Care Provide r Thomas OBJECT ORIENTED PROGRAMMERKarma Primary Care Provide r Ivonne Henry MD Primary Care Provider [phone] Ivonne Henry MD Primary Care Provider [phone] Ivonne Henry MD Primary Care Provider [phone] Ivonne Henry MD Primary Care Provider [phone] Iker Blackwell MD Primary Care Provider Dr. Dior Candelaria DO Emergency Provider Dr. Nicolas Hall DO Admit Provider Dr. Nicolas Hall DO Other Provider Dr. Elijah Guerrero DO Attending Provider Dr. Elijah Guerrero DO Other Provider [phone] Kunal Stone MD Emergency Provider Dr. Noelle Fleming MD Admit Provider Bernadette BOYER, Dr. Noelle Yoder Other Provider Demario MALDONADO, Dr. Mcgrath Attending Provider Demario MALDONADO, Dr. Mcgrath Emergency Provider Iker Blackwell MD Referring Provider Cecy MALDONADO, Dr. Caldera Emergency Provider [phone] Shanta BOYER, Dr. Lees Attending Provider Shanta BOYER, Dr. Lees Other Provider Denice MALDONADO, Dr. Hunter Attending Provider Denice MALDONADO, Dr. Hunter Emergency Provider Iker Blackwell MD Attending Provider Dr. Jihan Daly MD Attending Provider Iker Blackwell MD Other Provider Klaus BOYER, Dr. Littlejohn Attending Provider Dr. Elijah Simpson DO Emergency Provider Iker Blackwell MD Primary Care Provider [phone] Elijah Simpson DO Attending Provider KIRK RAGLAND Admitting Unavailable JOSE DANIEL, HIBA R Attending Unavailable IVONNE HENRY C Primary Care Unavailable TERESA GAY Attending Unavailable HENRYIVONNE RANGEL Primary Care Unavailable SELF, SELF Referring Unavailable HENRYIVONNE RANGEL Primary Care Unavailable PABLO DAVILA Attending Unavailable PABLO DAVILA Admitting Unavailable JOSE DANIEL, HIBA Referring Unavailable MATT IYER Admitting Unavailable COPC KEN, GENERIC Attending Unavailable COPC KEN, GENERIC Consulting Unavailable IVONNE HENRY Primary Care Unavailable Iker Blackwell MD Primary Care Provider [phone] Iker Blackwell MD Attending Provider Iker Blackwell MD Referring Provider LATISHA WOOTEN Attending Provider [phone] LATISHA WOOTEN Referring Provider KVNG ESCOTO Other Provider Genaro BOYER, Dr. Shaver Attending Provider Rosalva BOYER, Iker Primary Care Provider Iker Blackwell MD Attending Provider Iker Blackwell MD Referring Provider [phone] Werner Hogan DO Emergency Provider Rosalva BOYER, Iker Primary Care Physician [phone] LATISHA WOOTEN Attending Physician KVNG ESCOTO Nurse Practitioner Iker Blackwell MD Attending Physician Genaro BOYER, Dr. Shaver Attending Physician Dr. Werner Hogan DO Attending Physician Dr. Werner Hogan DO Emergency Department Physician Prem BOYER, Dr. Vazquez Attending Physician Prem BOYER, Dr. Vazquez Referring Provider Hilda BOYER, Dr. Nava Attending Physician JIHAN WOOTEN Attending Un available HENRY, IVONNE C Primary Care Unavailable HENRY, IVONNE C Primary Care Unavailable ELIJAH SANCHEZ Attending Unavaila ble HENRY, IVONNE C Primary Care Unavailable ELIJAH SANCHEZ Attending Unavaila ble HENRY, IVONNE C Primary Care Unavailable ELIJAH SANCHEZ Admitting Unavaila ble ELIJAH SANCHEZ Referring Unavaila ble HENRY, IVONNE C Primary Care Unavailable ELIJAH SANCHEZ Attending Unavaila ble JIHAN RODRIGUEZ Referring Unavailab le HENRY, IVONNE C Primary Care Unavailable LANCE PATTERSON Attending Bety vailable JIHAN RODRIGUEZ Admitting Unavailab KVNG Bills Admitting Unavaila ble KVNG ESCOTO Attending Unavaila ble KVNG ESCOTO Referring Unavaila ble ELAINE IVONNE C Primary Care Unavailable JIHAN WOOTEN Referring Un available JIHAN WOOTEN Attending Un available HENRY, IVONNE C Primary Care Unavailable Werner Hogan Attending Unavailable Rosalva, Chalon Primary Care Unavailable Elijah Simpson Attending Unavailable Rosalva, Chalon Primary Care Unavailable White, Noelle L Admitting Unavailable White, Noelle L Consulting Unavailable Rosalva, Chalon Primary Care Unavailable Joadelinaeri Elijah Attending Unavailable Rosalva, Chalon Referring Unavailable Rosalva, Chalon Attending Unavailable Rosalva, Chalon Primary Care Unavailable Rosalva, Chalon Referring Unavailable Rosalva, Chalon Primary Care Unavailable Rosalva, Chalon Attending Unavailable Jihan Daly Attending Unavailable Rosalva, Chalon Referring Unavailable Rosalva, Chalon Primary Care Unavailable Chhaya Lam Attending Unavailabl e Rosalva, Chalon Primary Care Unavailable Elijah Stevens Attending Unavailable Miedel, George Referring Unavailable Rosalva, Chalon Primary Care Unavailable Eron Enrique Attending Unavailable Rosalva, Chalon Primary Care Unavailable Rosalva, Chalon Consulting Unavailable Rosalva, Chalon Referring Unavailable Mosteller, Nicolas Admitting Unavailable Mosteller, Nicolas Consulting Unavailable Rosalva, Chalon Primary Care Unavailable Jopperi, Elijah Attending Unavailable Rosalva, Chalon Attending Unavailable Rosalva, Chalon Referring Unavailable Rosalva, Chalon Primary Care Unavailable Rosalva, Chalon Attending Unavailable Rosalva, Chalon Referring Unavailable Rosalva, Chalon Primary Care Unavailable Rosalva, Chalon Primary Care Unavailable Rosalva, Chalon Attending Unavailable Rosalva, Chalon Referring Unavailable NEAL, CHINMAY Consulting Unavailable NEAL, CHINMAY Attending Unavailable NEAL, CHINMAY Referring Unavailable Rosalva, Chalon Primary Care Unavailable White, Noelle L Consulting Unavailable White, Noelle L Admitting Unavailable Rosalva, Chalon Primary Care Unavailable Jopperi, Elijah Attending Unavailable Jopperi, Elijah Consulting Unavailable Mosteller, Nicolas Admitting Unavailable Mosteller, Nicolas Consulting Unavailable Mosteller, Nicolas Attending Unavailable Rosalva, Chalon Primary Care Unavailable Miedel, George Attending Unavailable Miedel, George Referring Unavailable Rosalva, Chalon Primary Care Unavailable Rosalva, Chalon Referring Unavailable Rosalva, Chalon Attending Unavailable Rosalva, Chalon Primary Care Unavailable Rosalva, Chalon Referring Unavailable Rosalva, Chalon Attending Unavailable Rosalva, Chalon Primary Care Unavailable Rosalva, Chalon Referring Unavailable Rosalva, Chalon Primary Care Unavailable Nabeel Womack Consulting Unavailable Nabeel Womack Attending Unavailable Elijah Guerrero Attending Unavailable Elijah Guerrero Consulting Unavailable Noelle Fleming Attending Unavailable Rosalva, Chalon Referring Unavailable Rosalva, Chalon Primary Care Unavailable CalNabeel tomas Attending Unavailable Alcides Hanks Attending Unavailable Rosalva, Chalon Primary Care Unavailable Rosalva, Chalon Primary Care Unavailable Dale Galdamez Attending UnavailTAMERA Damico Attending Unavailable KARMA MARK Primary Care Unavaila ble HENRY, IVONNE C Primary Care Unavailable HENRY, IVONNE C Primary Care Unavailable HENRY, IVONNE C Primary Care Unavailable ELIJAH SANCHEZ Admitting Unavaila ble ELIJAH SANCHEZ Referring Unavaila ble JIHAN RODRIGUEZ Attending Unavailab le HENRY, IVONNE C Primary Care Unavailable HENRY, IVONNE C Primary Care Unavailable HENRY, IVONNE C Primary Care Unavailable HENRY, IVONNE C Primary Care Unavailable JIHAN RODRIGUEZ Attending Unavailab le HENRY, IVONNE C Primary Care Unavailable HENRY, IVONNE C Primary Care Unavailable JIHAN RODRIGUEZ Attending Unavailab ELIJAH Plascencia Admitting Unavaila ble ELIJAH SANCHEZ Referring Unavaila ble HENRY, IVONNE C Primary Care Unavailable HENRY, IVONNE C Primary Care Unavailable Allergies Allergy Classification Reported Allergen(s) Allergy Type Date of Onset Reaction(s) Facility Acetaminophen (9 sources) Acetaminophen Drug Allergy 1 [facility] Opioid Agonists (13 sources) Codeine Drug Allergy 7 Itching, Hives [facility] (20 sources) codeine; Translations: [CODEINE] Drug Allergy 7 Itching, Hives [facility] Work Phone: (20 sources) Acetaminophen; Translations: [ACETAMINOPHEN] Drug Allergy 1 [facility] (20 sources) Ibuprofen; Translations: [IBUPROFEN] Drug Allergy 1 [facility] (13 sources) Lisinopril; Translations: [LISINOPRIL] Drug Allergy [address] [place] [address] Comment on above: per Dr. Hdz (1 source) Codeine Drug Allergy 5 [facility] (1 source) Lisinopril Drug Allergy 5 [facility] Medications Current Medications Medication Drug Class(es) Dates Sig (Normalized) Sig (Original) acetaminophen 325 mg / oxyCODONE hydrochloride 5 mg oral tablet (8 sources) Opioid Agonist Start: 07-05-2024 take 1 tablet by mouth every six hours as needed for pain [id number] actuat albuterol 0.09 mg/actuat metered dose inhaler (20 sources) beta2-Adrenergic Agonist Start: 11-02-2024 take 2 puff(s) by inhalation three times daily as needed albuterol 90 mcg/actuation inhaler INHALE 2 PUFFS THREE TIMES DAILY NEEDED 11/02/2024 Active Start: 01-02-2024 Start: 10-29-2023 End: 10-31-2023 take 2 puff(s) by inhalation every six hours as needed for wheezing 2 puff, Inhalation, EVERY 6 HOURS NEEDED, Starting on Tammy 10/29/23 at 2104, Until 10/31/23 at 1412, Wheezing, Wait at least one(1) full minute between inhalations Start: 10-25-2023 End: 10-25-2023 albuterol (PROVENTIL) 2.5 mg /3 mL (0.083 %) nebulizer solution 2.5 mg Start: 08-21-2021 End: 10-25-2023 take 2 puff(s) by inhalation every six hours as needed for cough albuterol 90 mcg/actuation inhaler Inhale 2 (two) puffs every 6 (six) hours as needed for wheezing, cough or shortness of breath . 18 g 1 08/21/2021 10/25/2023 Discontinued (Error) Start: 08-19-2021 albuterol (PRO VENTIL) 2.5 mg /3 mL (0.083 %) nebulizer solution 2.5 mg Start: 05-26-2021 End: 10-25-2023 take 2.5 mg by inhalation every four hours as needed for wheezing albuterol (PROVENTIL) 2.5 mg /3 mL (0.083 %) nebulizer solution Take 3 mL (2.5 mg total) by nebulization every 4 (four) hours as needed for wheezing Dx: J44.0 . 540 mL 1 08/21/2021 10/25/2023 Discontinued (Error) Start: 05-26-2021 End: 08-21-2021 take 2 puff(s) by inhalation every four hours as needed for wheezing albuterol 90 mcg/actuation inhaler Inhale 2 (two) puffs every 4 (four) hours as needed for wheezing . 18 g 0 05/26/2021 08/21/2021 Discontinued Start: 01-28-2021 End: 01-28-2021 albuterol inhaler Start: 07-25-2020 End: 07-26-2020 take 2.5 mg by inhalation every two hours as needed albuterol (PROVENTIL) 2.5 mg /3 mL (0.083 %) nebulizer solution 2.5 mg Start: 07-17-2020 End: 07-19-2020 take 2.5 mg by inhalation every four hours as needed 2.5 mg, Nebulization, Every 4 hours PRN, wheezing, Starting 07/17/20 at 2125 Start: 07-17-2020 albuterol (PRO VENTIL) 2.5 mg /3 mL (0.083 %) nebulizer solution 2.5 mg Start: 06-14-2020 End: 09-12-2020 take 2.5 mg by inhalation every four hours as needed for wheezing albuterol (PROVENTIL) 2.5 mg /3 mL (0.083 %) nebulizer solution Take 3 mL (2.5 mg total) by nebulization every 4 (four) hours as needed for wheezing Dx: J44.0 . 540 mL 0 08/13/2020 Active Start: 04-14-2020 End: 04-21-2020 albuterol (PROVENTIL) 2.5 mg /3 mL (0.083 %) nebulizer solution 2.5 mg Start: 04-12-2020 End: 04-12-2020 take 2.5 mg by inhalation every six hours as needed albuterol (PROVENTIL) 2.5 mg /3 mL (0.083 %) nebulizer solution 2.5 mg Start: 03-30-2020 End: 06-14-2020 take 2.5 mg by inhalation every six hours as needed albuterol (PROVENTIL) 2.5 mg /3 mL (0.083 %) nebulizer solution Take 3 mL (2.5 mg total) by nebulization every 6 (six) hours as needed for wheezing . 75 mL 12 03/30/2020 06/14/2020 Discontinued (Reorder) Start: 01-14-2020 albuterol (PRO VENTIL) 2.5 mg /3 mL (0.083 %) nebulizer solution 2.5 mg Start: 11-02-2019 End: 11-03-2019 take 2.5 mg by inhalation every six hours as needed albuterol (PROVENTIL) 2.5 mg /3 mL (0.083 %) nebulizer solution 2.5 mg Start: 05-25-2019 take 1 puff(s) by mo uth every six hours as needed for wheezing albuterol 108 (90 Base) MCG/ACT Aero Soln inhaler Inhale 1 puff by mouth every 6 hours as needed for wheezing. 18 g 05/25/2019 Active Start: 06-25-2018 End: 11-03-2019 take 2 puff(s) by inhalation every six hours as needed for wheezing albuterol (VENTOLIN HFA) 90 mcg/actuation inhaler Indications: Chronic obstructive pulmonary disease, unspecified COPD type (HCC) Inhale 2 (two) puffs every 6 (six) hours as needed for wheezing or shortness of breath (Only use if not using your nebulizer) . 1 Inhaler 11 06/25/2018 11/03/2019 Discontinued (Error) Start: 12-14-2017 End: 01-28-2018 VENTOLIN HFA 90 mcg/actuatio n inhaler Indications: Chronic obstructive pulmonary disease, unspecified COPD type (HCC) Inhale 2 (two) puffs every 6 (six) hours as needed for wheezing or shortness of breath. 1 Inhaler 5 12/29/2017 01/28/2018 Active End: 08-21-2021 take 2 puff(s) by inhalation every six hours as needed for wheezing albuterol 90 mcg/actuation inhaler Inhale 2 puffs every 6 (six) hours as needed for wheezing . 0 08/21/2021 Discontinued (Stop Taking at Discharge) take 2 puff(s) by in halation every four hours as needed for wheezing albuterol 90 mcg/actuation inhaler Inhale 2 puffs every 4 (four) hours as needed for wheezing . 0 Active albuterol 0.833 mg/ml / ipratropium bromide 0.167 mg/ml inhalation solution (20 sources) Anticholinergic, beta2-Adrenergic Agonist Start: 01-21-2024 take 1 mL by inhalation every eight hours as needed for chronic obstructive pulmonary disease Start: 10-29-2023 End: 10-29-2023 3 mL, Nebulization, ONCE, 1 dose, On Thu10/29/23 at 2029 Start: 10-25-2023 End: 10-27-2023 ipratropium-albuteroL (DUO-N EB) 0.5-2.5 mg/3 ml nebulizer solution 3 mL Start: 08-19-2021 End: 10-31-2023 take 3 mL by inhalation every six hours as needed for wheezing ipratropium-albuteroL (DUO-NEB) 0.5-2.5 mg/3 ml nebulizer Take 3 mL by nebulization every 6 (six) hours as needed for wheezing or shortness of breath . 120 mL 10/26/2023 Active Start: 08-19-2021 End: 08-21-2021 take 3 mL by inhalation every four hours as needed for wheezing 3 mL, Inhalation, Every 4 hours PRN (RT), shortness of breath, wheezing, Starting on Thu08/19/21 at 2016 Start: 08-19-2021 End: 08-19-2021 ipratropium-albuteroL (DUO-N EB) 0.5-2.5 mg/3 ml nebulizer solution 3 mL Start: 09-21-2020 End: 09-21-2020 ipratropium-albuteroL (DUO-N EB) 0.5-2.5 mg/3 ml nebulizer solution 3 mL Start: 08-11-2020 End: 08-13-2020 ipratropium-albuteroL (DUO-N EB) 0.5-2.5 mg/3 ml nebulizer solution 3 mL Start: 08-09-2020 End: 08-11-2020 take 3 mL by inhalation four times daily 3 mL, Inhalation, 4 times daily (RT), First dose on Tammy 08/09/20 at 0800 Start: 08-09-2020 End: 08-13-2020 take 3 mL by inhalation every four hours as needed 3 mL, Inhalation, Every 4 hours PRN (RT), wheezing, shortness of breath, Starting [facility] 08/09/20 at 0420 Start: 07-25-2020 End: 07-26-2020 ipratropium-albuteroL (DUO-N EB) 0.5-2.5 mg/3 ml nebulizer solution 3 mL Start: 07-17-2020 End: 07-17-2020 ipratropium-albuteroL (DUO-N EB) 0.5-2.5 mg/3 ml nebulizer solution 3 mL Start: 07-17-2020 End: 07-17-2020 ipratropium-albuteroL (DUO-N EB) 0.5-2.5 mg/3 ml nebulizer solution - ADS Override Pull Start: 07-05-2020 End: 07-05-2020 ipratropium-albuteroL (DUO-N EB) 0.5-2.5 mg/3 ml nebulizer solution 3 mL Start: 05-28-2020 End: 05-28-2020 ipratropium-albuteroL (DUO-N EB) 0.5-2.5 mg/3 ml nebulizer solution 3 mL Start: 04-14-2020 End: 04-18-2020 take 3 mL by inhalation every four hours 3 mL, Inhalation, Every 4 hours scheduled (RT), First dose on [facility] 04/14/20 at 0400 Start: 04-13-2020 End: 04-13-2020 ipratropium-albuteroL (DUO-N EB) 0.5-2.5 mg/3 ml nebulizer solution 3 mL Start: 04-12-2020 End: 04-12-2020 take 3 mL by inhalation every four hours 3 mL, Inhalation, Every 4 hours scheduled (RT), First dose on [facility] 04/12/20 at 0100 Start: 04-11-2020 End: 04-11-2020 ipratropium-albuteroL (DUO-N EB) 0.5-2.5 mg/3 ml nebulizer solution 3 mL Start: 01-14-2020 End: 01-14-2020 ipratropium-albuteroL (DUO-N EB) 0.5-2.5 mg/3 ml nebulizer solution 3 mL Start: 01-09-2018 ipratropium-al buterol (DUO-NEB) 0.5-2.5 mg/3 ml nebulizer solution 3 mL Start: 12-29-2017 End: 11-03-2019 take 3 mL by inhalation every four hours as needed for chronic obstructive pulmonary disease and chronic obstructive pulmonary disease ipratropium-albuterol (DUO-NEB) 0.5-2.5 mg/3 ml nebulizer Indications: Chronic obstructive pulmonary disease, unspecified COPD type (HCC) Take 3 mL by nebulization every 4 to 6 hours as needed for wheezing or shortness of breath . 360 mL 11 06/25/2018 11/03/2019 Discontinued (Error) Start: 12-14-2017 End: 12-15-2017 amLODIPine 5 mg oral tablet (20 sources) Dihydropyridine Calcium Channel Jose Alberto Start: 07-09-2024 take 1 tablet by mouth once daily amLODIPine (NORVASC) 5 MG tablet Take 1 (one) tablet (5 mg total) by mouth daily . 07/09/2024 Active Start: 01-22-2024 take 1 tablet by ken th once daily Start: 06-25-2018 End: 04-12-2020 take 1 tablet by mouth once daily amLODIPine (NORVASC) 5 MG tablet Take 1 (one) tablet (5 mg total) by mouth daily . 30 tablet 0 11/03/2019 Active Start: 12-15-2017 End: 12-29-2017 take 1 tablet by mouth once daily amLODIPine (NORVASC) 5 MG tablet Take 1 (one) tablet (5 mg total) by mouth daily. 30 tablet 2 12/15/2017 12/29/2017 Discontinued amoxicillin 875 mg / clavulanate 125 mg oral tablet (19 sources) Penicillin-class Antibacterial Start: 08-18-2024 take 1 tablet by mouth every twelve hours Start: 05-23-2024 Start: 07-19-2020 End: 07-26-2020 take 1 tablet by mouth twice daily 1 tablet, Oral, 2 t imes daily, First dose on Thu07/25/20 at 2100, For 3 doses Indication: CAP apixaban 2.5 mg oral tablet (15 sources) Factor Xa Inhibitor Start: 01-29-2021 End: 02-04-2021 take 1 tablet by mouth twice daily apixaban (ELIQUIS) 2.5 mg Tab Take 1 (one) tablet (2.5 mg total) by mouth 2 (two) times a day for 6 days . 12 tablet 0 01/29/2021 Active Start: 05-04-2020 End: 06-19-2020 Eliquis 2.5 mg Tab aspirin 81 mg delayed release oral tablet (20 sources) Platelet Aggregation Inhibitor, Nonsteroidal Anti-inflammatory Drug Start: 02-04-2021 End: 02-25-2021 take 1 tablet by mouth twice daily at mealtime aspirin 81 MG EC tablet Take 1 (one) tablet (81 mg total) by mouth 2 (two) times a day with meals Begin in the PM of 02/04/21, after finishing Eliquis prescription for 21 days Start: 02/04/21. 42 tablet 0 02/04/2021 02/25/2021 Active Start: 12-13-2017 End: 12-13-2017 aspirin chewable tablet 324 mg Start: 01-10-2017 End: 08-09-2020 take 81 mg by mouth once daily 81 mg, Oral, Daily, Fir st dose on Thu07/25/20 at 1600 DO NOT CRUSH OR CHEW. azithromycin 250 mg oral tablet (20 sources) Macrolide Antimicrobial Start: 10-31-2023 End: 10-31-2023 Azithromycin 250 MG tablet Take by mouth 2 tablets (500 mg) on Day 1, then 1 tablet (250 mg) daily on Days 2-5 10/31/2023 10/31/2023 Active Start: 10-30-2023 End: 10-31-2023 take 1 tablet by mouth every twenty-four hours 500 mg, Oral, EVERY 24 HOURS, 2 doses, First dose (after last modification) on Thu10/30/23 at 0900, Last dose on Thu10/31/23 at 0900 Start: 10-29-2023 End: 10-29-2023 take 1 dose by mouth once 500 mg, Oral, ONCE, 1 dose, On Tammy 10/29/23 at 2045 Start: 08-20-2021 End: 08-25-2021 take 1 tablet by mouth once daily azithromycin (ZITHRO MAX) 250 MG tablet Take 1 (one) tablet (250 mg total) by mouth daily for 3 days Start: 08/22/21. 3 tablet 0 08/22/2021 08/25/2021 Active Start: 08-19-2021 End: 08-19-2021 take 500 mg by mouth once 500 mg, Oral, Once, On Mon at 2020, For 1 dose Indication: COPD Exacerbation Start: 08-12-2020 End: 08-16-2020 take 1 tablet by mouth once daily azithromycin (ZITHRO MAX) 250 MG tablet Take 1 (one) tablet (250 mg total) by mouth daily for 2 days Start: 08/14/20. 2 tablet 0 08/14/2020 08/16/2020 Active Start: 08-11-2020 End: 08-11-2020 azithromycin (ZITHROMAX) tab let 500 mg Start: 07-26-2020 End: 08-09-2020 take 1 tablet by mouth once azithromycin (ZITHROMAX) 2 50 MG tablet Take one tablet by mouth every Thursday, Thursday and Thursday morning. . 20 tablet 0 07/26/2020 08/09/2020 Discontinued Start: 07-18-2020 End: 07-22-2020 take 1 tablet by mouth once daily azithromycin (ZITHRO MAX) 250 MG tablet Take 1 (one) tablet (250 mg total) by mouth daily for 2 days Start: 07/20/20. 2 tablet 0 07/20/2020 07/22/2020 Active Start: 07-17-2020 End: 07-17-2020 take 500 mg by mouth once 500 mg, Oral, Once, Tue at 2215, For 1 dose Indication: COPD Exacerbation Start: 06-14-2020 End: 07-19-2020 azithromycin (ZITHROMAX) 250 MG tablet Take 2 tabs today then 1 tablet daily until gone. . 6 tablet 0 06/14/2020 07/19/2020 Discontinued (Error) Start: 05-29-2020 End: 06-02-2020 take 1 tablet by mouth once daily azithromycin (ZITHRO MAX) 250 MG tablet Take 1 (one) tablet (250 mg total) by mouth daily for 4 days Start: 05/29/20. 4 tablet 0 05/29/2020 06/02/2020 Active Start: 05-28-2020 End: 05-28-2020 azithromycin (ZITHROMAX) tab let 1,000 mg Start: 04-12-2020 End: 04-21-2020 take 1 tablet by mouth once daily azithromycin (ZITHRO MAX) 250 MG tablet Take 1 (one) tablet (250 mg total) by mouth daily for 3 days Start: 04/13/20. 3 tablet 0 04/13/2020 04/21/2020 Discontinued (Stop Taking at Discharge) Start: 12-15-2017 End: 12-19-2017 take 1 tablet by mouth once daily azithromycin (ZITHRO MAX) 250 MG tablet Take 1 (one) tablet (250 mg total) by mouth daily for 4 days. 4 tablet 0 12/15/2017 12/19/2017 Active Start: 12-15-2017 End: 12-15-2017 benzonatate 100 mg oral capsule (20 sources) Non-narcotic Antitussive Start: 09-30-2024 take 1 capsule by mouth twice daily benzonatate (TESSALON) 100 MG capsule Take 1 (one) capsule (100 mg total) by mouth 2 (two) times a day . 09/30/2024 Active Start: 08-21-2021 End: 08-28-2021 take 1 capsule by mouth three times daily as needed for cough benzonatate (TESSALON) 100 MG capsule Take 1 (one) capsule (100 mg total) by mouth 3 (three) times a day as needed for cough . 20 capsule 0 08/21/2021 08/28/2021 Active Start: 05-26-2021 End: 06-05-2021 take 1 capsule by mouth every eight hours as needed for cough benzonatate (TESSALON) 200 MG capsule Take 1 (one) capsule (200 mg total) by mouth every 8 (eight) hours as needed for cough . 20 capsule 0 05/26/2021 06/05/2021 Active Start: 08-11-2019 End: 08-18-2019 take 1 capsule by mouth three times daily as needed for cough benzonatate (TESSALON) 200 MG capsule Take 1 (one) capsule (200 mg total) by mouth 3 (three) times a day as needed for cough . 20 capsule 0 08/11/2019 08/18/2019 Active take 1 capsule by [facility] every eight hours as needed for cough benzonatate (TESSALON) 200 MG capsule Take 200 mg by mouth every 8 (eight) hours as needed for cough . 0 Active bisacodyl 5 mg delayed release oral tablet (2 sources) Stimulant Laxative Start: 01-29-2021 End: 02-05-2021 take 1 tablet by mouth once daily as needed for constipation bisacodyL (DULCOLAX) 5 mg EC tablet Take 1 (one) tablet (5 mg total) by mouth daily as needed for constipation . 7 tablet 0 01/29/2021 02/05/2021 Active Start: 12-14-2017 End: 12-15-2017 12 hr buPROPion hydrochloride 150 mg extended release oral tablet (2 sources) Aminoketone Start: 12-29-2017 buPROPion (WELLBUTRIN SR) 150 MG 12 hr tablet Indications: Tobacco use Take one tablet at bedtime for the first 5 nights then increase to one tablet in the morning and one in the evening.. 60 tablet 3 12/29/2017 Active carboxymethylcellulose 0.01 mg/mg ophthalmic gel (1 source) take 1 drop(s) into the eye(s) three times daily as needed carboxymethylcellulose 1 % ophthalmic solution Indications: dry eye Apply 1 drop to eye 3 (three) times a day as needed Reasons: dry eye. 0 Active cephalexin 500 mg oral capsule (1 source) Cephalosporin Antibacterial Start: 01-29-2021 End: 02-05-2021 take 1 capsule by mouth three times daily cephALEXin (KEFLEX) 500 MG capsule Take 1 (one) capsule (500 mg total) by mouth 3 (three) times a day for 7 days . 21 capsule 0 01/29/2021 02/05/2021 Active cholecalciferol 0.125 mg oral tablet (15 sources) Vitamin D Start: 07-09-2024 take 1 tablet by mouth once daily cholecalciferol, vitamin D3, 5,000 unit Tab tablet Take 1 (one) tablet (5,000 Units total) by mouth daily . 07/09/2024 Active ciprofloxacin 3 mg/ml ophthalmic solution (14 sources) Quinolone Antimicrobial Start: 10-17-2024 take 1 drop(s) into the eye(s) four times daily ciprofloxacin HCl (CILOXAN) 0.3 % ophthalmic solution instill 1 drop into the affected eye FOUR TIMES DAILY for TEN days. 10/17/2024 Active cyclobenzaprine hydrochloride 10 mg oral tablet (20 sources) Muscle Relaxant Start: 05-17-2024 take 1 tablet by mouth twice daily Start: 10-26-2023 End: 10-27-2023 take 1 tablet by mouth every twelve hours as needed 10 mg, Oral, Every 12 hours PRN, muscle spasms, Starting on Thu10/26/23 at 1004 Start: 08-19-2021 End: 08-21-2021 take 1 tablet by mouth every twelve hours as needed 10 mg, Oral, Every 12 hours PRN, muscle spasms, Starting on 08/19/21 at 2016 Start: 04-14-2020 End: 04-21-2020 take 5 mg by mouth twice daily as needed for muscle spasms 5 mg, Oral, 2 times daily PRN, muscle spasms, Starting [facility] 04/14/20 at 0233 Start: 04-12-2020 End: 04-12-2020 take 5 mg by mouth twice daily as needed for muscle spasms 5 mg, Oral, 2 times daily PRN, muscle spasms, Starting [facility] 04/12/20 at 0011 Start: 11-30-2019 End: 07-05-2020 take 2 tablets by mouth twice daily as needed for muscle spasms cyclobenzaprine (FLEXERIL) 5 MG tablet Take 10 mg by mouth 2 (two) times a day as needed for muscle spasms . 0 11/30/2019 07/05/2020 Discontinued (Error) Start: 11-30-2019 take 1 tablet by ken th twice daily as needed for muscle spasms cyclobenzaprine (FLEXERIL) 5 MG tablet Take 5 mg by mouth 2 (two) times a day as needed for muscle spasms . 0 11/30/2019 Active Start: 11-02-2019 End: 10-31-2023 take 1 tablet by mouth twice daily as needed for muscle spasms Cyclobenzaprine 10 MG tablet Take 1 tablet by mouth 2 times daily as needed for Muscle spasms. 60 tablet 3 10/20/2023 Active take 1 tablet by ken th every twelve hours as needed cyclobenzaprine (FLEXERIL) 10 MG tablet Take 1 (one) tablet (10 mg total) by mouth every 12 (twelve) hours as needed for muscle spasms . Active 12 hr dextromethorphan hydrobromide 30 mg / guaiFENesin 600 mg extended release oral tablet (8 sources) Uncompetitive Z-hxaeqk-R-aspartate Receptor Antagonist, Sigma-1 Agonist Start: 05-18-2024 diclofenac sodium 75 mg delayed release oral tablet (1 source) Nonsteroidal Anti-inflammatory Drug Start: 10-03-2020 End: 11-02-2020 take 1 tablet by mouth twice daily as needed diclofenac sodium (VOLTAREN) 75 MG EC tablet Take 1 (one) tablet (75 mg total) by mouth 2 (two) times a day as needed . 60 tablet 0 10/03/2020 11/02/2020 Active diphenhydrAMINE hydrochloride 25 mg oral capsule (20 sources) Histamine-1 Receptor Antagonist Start: 01-22-2024 diphenhydrAMINE (BENADRYL) 25 mg capsule 2 (two) capsules (50 mg total) . 01/22/2024 Active Start: 08-19-2021 End: 08-21-2021 take 1 tablet by mouth every six hours as needed 25 mg, Oral, Every 6 hours PRN, allergies, itching, Starting on Thu08/19/21 at 2016 Start: 05-23-2020 End: 07-17-2020 take 1 capsule by mouth once daily as needed Banophen 25 mg capsule Take 25 mg by mouth daily as needed for allergies . 0 05/23/2020 07/17/2020 Discontinued (Error) Start: 04-14-2020 End: 04-21-2020 take 1 tablet by mouth every eight hours as needed 25 mg, Oral, Every 8 hours PRN, itching, Starting 04/14/20 at 0233 Start: 04-13-2020 End: 04-13-2020 diphenhydrAMINE (BENADRYL) i njection 25 mg Start: 04-13-2020 End: 04-13-2020 diphenhydrAMINE (BENADRYL) i njection 25 mg End: 04-21-2020 take 1 capsule by mouth every eight hours as needed diphenhydrAMINE (BENADRYL) 25 mg capsule Take 25 mg by mouth every 8 (eight) hours as needed for itching . 0 04/21/2020 Discontinued (Stop Taking at Discharge) docusate sodium 100 mg oral capsule (20 sources) Start: 02-01-2025 take 1 capsule by mo uth twice daily Start: 04-11-2020 End: 10-29-2023 take 1 capsule by mouth twice daily Stool Softener 100 mg capsule Take 100 mg by mouth 2 (two) times a day . 0 04/11/2020 04/14/2020 Discontinued (Error) docusate sodium 50 mg / sennosides, jail 8.6 mg oral tablet (4 sources) Start: 01-29-2021 End: 02-28-2021 take 1 tablet by mouth twice daily senna-docusate (SENNA-S) 8.6-50 mg Take 1 (one) tablet by mouth 2 (two) times a day . 60 tablet 0 01/29/2021 02/28/2021 Active doxycycline hyclate 100 mg oral capsule (12 sources) Tetracycline -class Drug Start: 05-31-2024 take 1 capsule by mouth twice daily Start: 09-21-2020 End: 09-21-2020 doxycycline (VIBRAMYCIN) ora l solid 100 mg Start: 09-21-2020 End: 09-26-2020 take 1 tablet by mouth twice daily doxycycline hyclate (VIBRA-TABS) 100 MG tablet Take 1 (one) tablet (100 mg total) by mouth 2 (two) times a day for 5 days . 10 tablet 0 09/21/2020 09/26/2020 Active Start: 08-13-2020 End: 08-23-2020 take 1 tablet by mouth twice daily doxycycline hyclate (VIBRA-TABS) 100 MG tablet Take 1 (one) tablet (100 mg total) by mouth 2 (two) times a day for 10 days . 20 tablet 0 08/13/2020 08/23/2020 Active fexofenadine hydrochloride 180 mg oral tablet (14 sources) Histamine-1 Receptor Antagonist Start: 10-27-2024 take 1 tablet by mouth once daily fexofenadine (CHOLO) 180 MG tablet Take 1 (one) tablet (180 mg total) by mouth daily . 10/27/2024 Active 30 actuat fluticasone furoate 0.1 mg/actuat / umeclidinium 0.0625 mg/actuat / vilanterol 0.025 mg/actuat dry powder inhaler (20 sources) Anticholinergic, Corticosteroid, beta2-Adrenergic Agonist Start: 11-03-2024 take 1 puff(s) by mouth once daily Trelegy Ellipta 100-62.5-25 mcg DsDv 1 puff by Oral Inhalation route daily . 11/03/2024 Active Start: 01-21-2024 Start: 01-21-2024 Fluticasone-Um eclidin-Vilanter (Trelegy Ellipta) 100-62.5-25 mcg blister with device Active 1 NMA INHALATION DAILY January 21, 2024 12:00am breathing Start: 01-21-2024 Fluticasone-Um eclidin-Vilanter (Trelegy Ellipta) 100-62.5-25 mcg blister with device Active 1 NMA INHALATION DAILY January 21, 2024 12:00am Start: 11-01-2023 End: 12-01-2023 take 1 puff(s) by inhalation once daily Trelegy Ellipta 100-62.5-25 mcg DsDv Inhale 1 puff daily . 60 each 2 11/01/2023 12/01/2023 Active Start: 09-14-2023 End: 10-26-2023 take 1 puff(s) by inhalation once daily Trelegy Ellipta 100-62.5-25 MCG/ACT Aerosol Powder, breath activated inhaler Inhale 1 puff daily. 60 Each 6 10/20/2023 Active furosemide 20 mg oral tablet (20 sources) Loop Diuretic Start: 02-24-2022 End: 10-31-2023 take 1 tablet by mouth once daily furosemide (LASIX) 20 MG tablet Take 1 (one) tablet (20 mg total) by mouth daily . 02/24/2022 Active Start: 07-26-2020 End: 07-26-2020 furosemide (LASIX) injection 40 mg 12 hr guaiFENesin 600 mg extended release oral tablet (20 sources) Start: 10-30-2023 End: 10-31-2023 take 1 tablet by mouth twice daily guaiFENesin (MUCINEX) 600 mg 12 hr tablet Take 1 (one) tablet (600 mg total) by mouth 2 (two) times a day . 60 tablet 11/01/2023 Active Start: 10-27-2023 End: 10-27-2023 take 200 mg by mouth every four hours as needed for cough guaiFENesin (ROBITUSSIN) 100 mg/5 mL syrup 200 mg Start: 09-14-2023 End: 10-29-2023 take 1 tablet by mouth twice daily as needed for cough guaiFENesin 600 MG Tab SR 12 HR tablet SR Take 1 tablet by mouth 2 times daily as needed for Cold Symptoms or Cough. 60 tablet 11 10/28/2023 10/29/2023 Discontinued Start: 08-09-2020 End: 08-13-2020 take 1200 mg by mouth every twelve hours 1,200 mg, Oral, Every 12 hours scheduled, First dose on Thu08/09/20 at 1415 DO NOT CRUSH OR CHEW. Start: 08-09-2020 End: 08-13-2020 take 200 mg by mouth every six hours as needed 200 mg, Oral, Every 6 hours PRN, cough, Starting [facility] 08/09/20 at 0420 Start: 07-26-2020 End: 07-26-2020 take 1200 mg by mouth once daily in the morning 1,200 mg, Oral, Every morning, First dose (after last modification) on Thu07/26/20 at 0900 DO NOT CRUSH OR CHEW. Start: 07-18-2020 End: 07-19-2020 take 1200 mg by mouth once daily in the morning 1,200 mg, Oral, Every morning, First dose on Thu07/18/20 at 0900 DO NOT CRUSH OR CHEW. Start: 06-14-2020 End: 06-19-2020 take 1 tablet by mouth once guaiFENesin (MUCINEX) 600 mg 12 hr tablet Take 1 (one) tablet (600 mg total) by mouth every 12 (twelve) hours . 60 tablet 6 06/14/2020 06/19/2020 Discontinued Start: 04-14-2020 End: 09-20-2021 take 1 tablet by mouth twice daily as needed guaiFENesin (MUCINEX) 600 mg 12 hr tablet Take 1 (one) tablet (600 mg total) by mouth 2 (two) times a day as needed . 60 tablet 0 08/21/2021 09/20/2021 Active Start: 04-12-2020 End: 04-12-2020 take 600 mg by mouth every twelve hours 600 mg, Oral, Every 12 hours, First dose on Tammy 04/12/20 at 0900 DO NOT CRUSH OR CHEW. Start: 03-30-2020 End: 04-29-2020 take 1 tablet by mouth once guaiFENesin (MUCINEX) 600 mg 12 hr tablet Take 1 (one) tablet (600 mg total) by mouth every 12 (twelve) hours . 60 tablet 0 03/30/2020 04/29/2020 Active take 1200 mg by mout h twice daily as needed guaiFENesin (Mucinex) 1,200 mg Ta12 Take 1,200 mg by mouth 2 (two) times a day as needed . 0 Active take 1200 mg by mout h once daily in the morning guaiFENesin (Mucinex) 1,200 mg Ta12 Take 1,200 mg by mouth every morning . 0 Active ipratropium bromide 0.042 mg/actuat metered dose nasal spray (14 sources) Anticholinergic Start: 09-16-2024 take 2 spray(s) nasal route three times daily as needed ipratropium (ATROVENT) 42 mcg (0.06 %) nasal spray 2 SPRAYS IN EACH NOSTRIL THREE TIMES DAILY NEEDED 09/16/2024 Active ketotifen 0.25 mg/ml ophthalmic solution (10 sources) Histamine-1 Receptor Inhibitor take 2 drop(s) into the eye(s) once daily as needed ketotifen (ZADITOR) 0.025 % (0.035 %) ophthalmic solution Administer 2 drops into the left eye daily as needed . 0 Active levoFLOXacin 750 mg oral tablet (12 sources) Quinolone Antimicrobial Start: 01-11-2025 take 1 tablet by mouth once daily levoFLOXacin (LEVAQUIN) 750 MG tablet Indications: Elevated PSA Take 1 (one) tablet (750 mg total) by mouth daily Start day prior to prostate biopsy. . 3 tablet 01/11/2025 Active Start: 12-13-2017 End: 12-13-2017 levoFLOXacin (LEVAQUIN) tabl et 750 mg loratadine 10 mg oral tablet (20 sources) Start: 01-21-2024 take 1 tablet by ken th every twenty-four hours as needed Start: 08-09-2020 End: 10-31-2023 take 1 tablet by mouth once daily in the morning as needed Loratadine 10 MG tablet Take 1 tablet by mouth Every morning as needed. 90 tablet 3 10/20/2023 Active montelukast 10 mg oral tablet (20 sources) Leukotriene Receptor Antagonist Start: 10-27-2024 take 1 tablet by mouth once daily montelukast (SINGULAIR) 10 mg tablet Take 1 (one) tablet (10 mg total) by mouth daily . 10/27/2024 Active Start: 05-26-2021 End: 10-25-2023 take 1 tablet by mouth once daily montelukast (SINGULAIR) 10 mg tablet Take 1 (one) tablet (10 mg total) by mouth nightly . 30 tablet 2 08/21/2021 10/25/2023 Discontinued (Error) Start: 04-12-2020 End: 08-18-2020 take 1 tablet by mouth once daily montelukast (SINGULAIR) 10 mg tablet Take 1 (one) tablet (10 mg total) by mouth nightly . 30 tablet 0 07/19/2020 Active 24 hr nicotine 0.875 mg/hr transdermal system (20 sources) Cholinergic Nicotinic Agonist Start: 11-02-2023 End: 12-02-2023 apply 1 dose transdermal route once daily nicotine (NICODERM CQ) 21 mg/[address] 1 (one) patch on the skin daily Start: 11/02/23. 30 patch 0 11/02/2023 12/02/2023 Active Start: 10-30-2023 End: 10-31-2023 Nicotine (NICODERM CQ) 21 MG /24HR patch 1 patch Start: 07-25-2020 End: 07-26-2020 take 2 mg oropharyngeal route every hour as needed nicotine polacrilex (NICORETTE) gum 2 mg Start: 07-17-2020 End: 08-09-2020 apply 1 dose transdermal route once daily as needed 1 patch, Transdermal, Administer over 24 Hours, Daily PRN, cravings, Starting Thu07/17/20 at 2125 U/P Listed Hazardous Drug. Waste Must Be Disposed in [employer] Start: 07-17-2020 End: 08-09-2020 4 mg, Mouth/Throat, As neede d, smoking cessation, Starting Thu07/17/20 at 2125 Nicotine Gum: [] May use to supplement nicotine patch therapy. [] Instruct patient to chew 1 piece of gum at a time. [] Chew slowly until it tingles, then place between cheek and gums. [] Instruct patient to repeat process until most of tingle is gone Not to exceed 24 pieces/24 hours Start: 04-14-2020 End: 09-20-2021 apply 1 dose transdermal route once daily nicotine (NICODERM CQ) 14 mg/[address] 1 (one) patch on the skin daily . 30 patch 0 08/21/2021 09/20/2021 Active Start: 04-14-2020 End: 04-21-2020 take 2 mg oropharyngeal route every hour as needed 2 mg, Mouth/Throat, Every 1 hour prn, smoking cessation, Starting 04/14/20 at 0233 Nicotine Gum: [] May use to supplement nicotine patch therapy. [] Instruct patient to chew 1 piece of gum at a time. [] Chew slowly until it tingles, then place between cheek and gums. [] Instruct patient to repeat process until most of tingle is gone Start: 12-27-2019 End: 10-02-2023 Nicotrol 10 MG Inhaler inhal er INHALE ONE PUFF BY MOUTH UP TO 6 TIMES A DAY NEEDED 1 Each 3 12/27/2019 10/02/2023 Discontinued Start: 12-13-2018 End: 10-02-2023 apply 1 dose transdermal route every twenty-four hours nicotine 14 MG/24HR Patch [address] 1 patch on skin every 24 hours. 30 patch 2 12/13/2018 10/02/2023 Discontinued Start: 12-14-2017 End: 12-15-2017 nicotine (NICODERM CQ) 14 mg /24 hr 1 patch apply 1 dose transde rmal route once daily as needed nicotine (NICODERM CQ) 21 mg/[address] 1 patch on the skin daily as needed . 0 Active nicotine polacri catarino (NICORETTE) 4 MG gum Apply 4 mg to the mouth or throat as needed for smoking cessation . 0 Active nicotine (NICOTR OL) 10 mg inhaler Inhale 1 Cartridge as needed for smoking cessation Up to 6 times per day . 0 Active nystatin 051464 unt/ml oral suspension (20 sources) Polyene Antifungal Start: 05-18-2024 take 699210 [IU] by mouth four times daily Start: 05-18-2023 End: 10-31-2023 take 10 mL by mouth four times daily Nystatin 917353 UNIT/ML oral suspension Swish and swallow 10 mL 4 times daily. 05/18/2023 Active Start: 12-07-2020 nystatin (MYCO STATIN) 100,000 unit/mL suspension Start: 07-24-2020 End: 08-09-2020 take [id number] [IU] by mouth four times daily nystatin (MYCOSTATIN) 100,000 unit/mL suspension Take 500,000 Units by mouth 4 (four) times a day . 0 07/24/2020 08/09/2020 Discontinued omeprazole 20 mg delayed release oral capsule (20 sources) Proton Pump Inhibitor Start: 08-25-2023 take 1 capsule by mouth once daily omeprazole (PRILOSEC) 20 MG capsule Take 1 (one) capsule (20 mg total) by mouth daily . 08/25/2023 Active Start: 04-29-2020 End: 06-19-2020 omeprazole (PRILOSEC) 40 MG capsule ondansetron 4 mg disintegrating oral tablet (15 sources) Serotonin-3 Receptor Antagonist Start: 07-05-2024 take 1 tablet by mouth every eight hours as needed for nausea Start: 01-28-2021 End: 01-28-2021 ondansetron (ZOFRAN) injecti on Start: 12-13-2020 End: 12-13-2020 ondansetron (ZOFRAN) injecti on 4 mg Start: 07-17-2020 End: 07-19-2020 take 4 mg intravenous route every six hours as needed 4 mg, Intravenous, Every 6 hours PRN, nausea, vomiting, Starting 07/17/20 at 2125 Start: 04-13-2020 End: 04-21-2020 take 4 mg intravenous route every six hours as needed 4 mg, Intravenous, Every 6 hours PRN, nausea, vomiting, Starting 04/14/20 at 0231 Start: 11-02-2019 End: 11-03-2019 take 4 mg intravenous route every six hours as needed 4 mg, Intravenous, Every 6 hours PRN, nausea, vomiting, Starting 11/02/19 at 1533 Start: 12-14-2017 End: 12-15-2017 take 4 mg intravenous route every six hours as needed oxyCODONE hydrochloride 5 mg oral tablet (3 sources) Opioid Agonist Start: 01-29-2021 End: 02-05-2021 oxyCODONE (ROXICODONE) 5 MG immediate release tablet Indications: Status post right hip replacement Take 1 (one) tablet to 2 (two) tablets (5-10 mg total) by mouth every 4 (four) hours as needed for pain (Days supply per fill: 7) . 64 tablet 0 01/29/2021 02/05/2021 Active Start: 10-03-2020 End: 10-03-2020 oxyCODONE (ROXICODONE) 10 mg /0.5 mL concentrated solution 5 mg Start: 07-10-2020 End: 07-10-2020 oxyCODONE (ROXICODONE) 10 mg /0.5 mL concentrated solution 5 mg OXYGEN-AIR DELIVERY SYSTEMS MISC (19 sources) prednisoLONE-Moxifloxacin 1-0.5 % Solution (16 sources) prednisoLONE-Mox ifloxacin 1-0.5 % Solution Apply to eye. Active predniSONE 50 mg oral tablet (20 sources) Corticosteroid Star t: 12-09-25 take 1 tablet by mouth once daily Start: 01-02-2024 End: 05-23-2024 take 2 tablets by mouth once daily Prednisone 20 mg tablet Discontinued 40 mg PO DAILY January 22, 2024 12:00am May 17, 2024 7:21pm Start: 11-01-2023 End: 11-12-2023 take 4 tablets by mouth once daily at breakfast, then take 3 tablets by mouth once daily at breakfast, then take 2 tablets by mouth once daily at breakfast, then take 1 tablet by mouth once daily at breakfast predniSONE (DELTASONE) 10 MG tablet Take 4 (four) tablets (40 mg total) by mouth daily with breakfast for 2 days, THEN 3 (three) tablets (30 mg total) daily with breakfast for 3 days, THEN 2 (two) tablets (20 mg total) daily with breakfast for 3 days, THEN 1 (one) tablet (10 mg total) daily with breakfast for 3 days. 26 tablet 0 11/01/2023 11/12/2023 Active Start: 10-30-2023 End: 10-31-2023 40 mg, Oral, DAILY, 4 doses, First dose (after last modification) on Thu10/30/23 at 0900, Last dose on Thu11/02/23 at 0900 Start: 10-27-2023 End: 11-04-2023 take 2 tablets by mouth once daily predniSONE 20 MG tablet Take 2 tablets by mouth daily for 4 days. 10/31/2023 11/04/2023 Start: 10-27-2023 End: 10-27-2023 take 40 mg by mouth once daily at breakfast 40 mg, Oral, Daily with breakfast, First dose on Thu10/27/23 at 0800 Start: 10-25-2023 End: 10-25-2023 predniSONE (DELTASONE) table t 60 mg Start: 08-22-2021 End: 08-26-2021 take 2 tablets by mouth once daily predniSONE (DELTASONE) 20 MG tablet Take 2 (two) tablets (40 mg total) by mouth daily for 4 days Start: 08/22/21. 8 tablet 0 08/22/2021 08/26/2021 Active Start: 08-21-2021 End: 08-21-2021 40 mg, Oral, Daily, First do se on Thu08/21/21 at 0800, For 4 doses Give with food Specify: start at hour 32 after last dose of Solu-Medrol X 3 Q8 hours Start: 09-21-2020 End: 09-21-2020 predniSONE (DELTASONE) table t 40 mg Start: 08-14-2020 End: 08-17-2020 take 2 tablets by mouth once daily predniSONE (DELTASONE) 20 MG tablet Take 2 (two) tablets (40 mg total) by mouth daily for 3 days Start: 08/14/20. 6 tablet 0 08/14/2020 08/17/2020 Active Start: 08-11-2020 End: 08-13-2020 predniSONE (DELTASONE) table t 40 mg Start: 07-26-2020 End: 07-26-2020 take 60 mg by mouth once daily at breakfast 60 mg, Oral, Daily with breakfast, First dose on Thu07/26/20 at 0800, For 1 day Start: 07-25-2020 End: 07-25-2020 predniSONE (DELTASONE) table t 60 mg Start: 07-19-2020 End: 08-09-2020 take 4 tablets by mouth once daily, then take 3 tablets by mouth once daily, then take 2 tablets by mouth once daily, then take 1 tablet by mouth once daily predniSONE (DELTASONE) 20 MG tablet Take 4 tabs PO daily x 3 days, then 3 tabs PO daily x 3 days, then 2 tabs PO daily x 3 days, then 1 tab PO daily x 3 days . 30 tablet 0 07/19/2020 08/09/2020 Discontinued Start: 07-17-2020 End: 07-19-2020 take 40 mg by mouth once daily at mealtime 40 mg, Oral, Daily, First dose on Thu07/18/20 at 0800, For 5 doses Give with food Start: 07-06-2020 End: 07-11-2020 take 5 tablets by mouth once daily predniSONE (DELTASONE) 10 MG tablet Take 5 (five) tablets (50 mg total) by mouth daily for 5 days Start: 07/06/20. 25 tablet 0 07/06/2020 07/11/2020 Active Start: 04-19-2020 End: 04-21-2020 predniSONE (DELTASONE) table t 20 mg Start: 04-14-2020 End: 04-18-2020 predniSONE (DELTASONE) table t 40 mg Start: 04-13-2020 End: 04-23-2020 take 2 tablets by mouth once daily at breakfast, then take 1 tablet by mouth once daily at breakfast, then take 0.5 tablet by mouth once daily at breakfast predniSONE (DELTASONE) 20 MG tablet Take 2 (two) tablets (40 mg total) by mouth daily with breakfast for 2 days, THEN 1 (one) tablet (20 mg total) daily with breakfast for 4 days, THEN 0.5 (one-half) tablet (10 mg total) daily with breakfast for 4 days. Start: 04/13/20. 10 tablet 0 04/13/2020 04/21/2020 Discontinued (Stop Taking at Discharge) Start: 04-12-2020 End: 04-12-2020 take 40 mg by mouth once daily at breakfast 40 mg, Oral, Daily with breakfast, First dose on Thu04/12/20 at 0800, For 5 days Start: 01-14-2020 End: 01-14-2020 predniSONE (DELTASONE) table t 60 mg Start: 08-11-2019 End: 11-03-2019 take 1 tablet by mouth twice daily, then take 1 tablet by mouth once daily predniSONE (DELTASONE) 20 MG tablet One PO BID for three days then one PO q day for 3 days . 9 tablet 0 08/11/2019 11/03/2019 Discontinued (Error) Start: 08-11-2019 End: 08-11-2019 predniSONE (DELTASONE) table t 60 mg Start: 05-25-2019 End: 10-02-2023 take 3 tablets by mouth once daily predniSONE (DELTASONE) 20 MG tablet Take 3 (three) tablets (60 mg total) by mouth daily for 4 days . 12 tablet 0 01/14/2020 01/18/2020 Active Start: 01-10-2018 End: 01-15-2018 take 2 tablets by mouth once daily predniSONE (DELTASONE) 20 MG tablet Take 2 (two) tablets (40 mg total) by mouth daily for 5 days. 10 tablet 0 01/10/2018 01/15/2018 Active Start: 12-15-2017 End: 12-20-2017 take 1 tablet by mouth once daily at breakfast predniSONE (DELTASONE) 50 MG tablet Take 1 (one) tablet (50 mg total) by mouth daily with breakfast for 5 days. 5 tablet 0 12/15/2017 12/20/2017 Active Start: 12-13-2017 End: 12-15-2017 predniSONE (DELTASONE) table t 40 mg sodium phosphate, dibasic 59.3 mg/ml / sodium phosphate, monobasic 161 mg/ml enema (1 source) Start: 01-11-2025 End: 01-11-2025 take 1 dose rectal route once sodium phosphates (FLEETS ADULT) 19-7 gram/118 mL Enem Indications: Elevated PSA Insert 1 (one) each into the rectum once Take morning of prostate biopsy before your office visit for 1 dose . 1 each 01/11/2025 01/11/2025 Active tamsulosin hydrochloride 0.4 mg oral capsule (20 sources) alpha-Adrenerg ic Jose Alberto Start: 10-28-2024 End: 10-23-2025 take 2 capsules by mouth once daily before breakfast tamsulosin (FLOMAX) 0.4 mg capsule Indications: Benign prostatic hyperplasia, unspecified whether lower urinary tract symptoms present Take 2 (two) capsules (0.8 mg total) by mouth every morning before breakfast . 180 capsule 3 10/28/2024 10/23/2025 Active Start: 07-24-2020 End: 10-28-2024 take 1 capsule by mouth once daily traMADol hydrochloride 50 mg oral tablet (20 sources) Opioid Agonist Start: 08-18-2024 take 1 tablet by mouth every six hours as needed traMADol (ULTRAM) 50 mg tablet Take 1 (one) tablet (50 mg total) by mouth every 6 (six) hours as needed . 08/18/2024 Active take 1 tablet by ken th every twelve hours as needed traMADoL (ULTRAM) 50 mg tablet Take 50 m g by mouth every 12 (twelve) hours as needed for pain . 0 Active umeclidinium (10 sources) Anticholinergic Start: 06-25-2018 take 62.5 ug by inhalation once daily umeclidinium (INCRUSE ELLIPTA) 62.5 mcg/actuation DsDv Inhale 62.5 mcg daily . 1 each 0 06/25/2018 Active Start: 06-25-2018 take 62.5 ug by inha lation once daily umeclidinium (INCRUSE ELLIPTA) 62.5 mcg/actuation DsDv Inhale 62.5 mcg daily . 1 each 0 06/25/2018 Active umeclidinium (IN ALISSA ELLIPTA) 62.5 mcg/actuation DsDv Inhale 62.5 mcg daily. Active Completed/Discontinued Medications Medication Drug Class(es) Dates Sig (Normalized) Sig (Original) acetaminophen 325 mg oral tablet (20 sources) Start: 10-29-2023 End: 10-31-2023 take 1 tablet by mouth every six hours as needed 975 mg, Oral, EVERY 6 HOURS NEEDED, Starting on Tammy 10/29/23 at 2005, Until 10/31/23 at 1412, Mild Pain, Moderate Pain, Maximum dose of acetaminophen is 4000 mg from all sources in 24 hours. Start: 10-25-2023 End: 10-27-2023 take 1 tablet by mouth every four hours as needed for pain and headache 650 mg, Oral, Every 4 hours PRN, mild pain, fever 100.4 F or greater, headaches, Starting on 10/26/23 at 1004 Start: 08-19-2021 End: 08-21-2021 take 1 tablet by mouth every four hours as needed for pain and headache 650 mg, Oral, Every 4 hours PRN, mild pain, fever 100.4 F or greater, headaches, Starting on 08/19/21 at 2016 Start: 08-09-2020 End: 08-13-2020 take 1 tablet by mouth every four hours as needed 650 mg, Oral, Every 4 hours PRN, fever 100.4 F or greater, Starting [facility] 08/09/20 at 0420 Start: 04-14-2020 End: 04-21-2020 take 1 tablet by mouth every four hours as needed 650 mg, Oral, Every 4 hours PRN, mild pain, Starting 04/14/20 at 0231 Start: 04-12-2020 End: 04-12-2020 take 1 tablet by mouth every four hours as needed 650 mg, Oral, Every 4 hours PRN, mild pain, fever 100.4 F or greater, headaches, Starting [facility] 04/12/20 at 0006 Start: 04-11-2020 End: 10-25-2023 take 1 tablet by mouth every eight hours as needed acetaminophen (TYLENOL) 500 MG tablet Take 500 mg by mouth every 8 (eight) hours as needed . 0 04/11/2020 06/19/2020 Discontinued Start: 11-02-2019 End: 11-03-2019 take 1 tablet by mouth every four hours as needed 650 mg, Oral, Every 4 hours PRN, fever 100.4 F or greater, Starting [facility] 11/02/19 at 1533 Start: 11-02-2019 End: 11-02-2019 acetaminophen (TYLENOL) tabl et 975 mg Start: 12-14-2017 End: 12-15-2017 take 2 tablets by mouth every six hours as needed acetaminophen (TYLENOL) tablet 650 mg take 1 capsule by mo uth every eight hours as needed for pain acetaminophen 500 mg capsule Take 500 mg by mouth every 8 (eight) hours as needed for pain . 0 Active take 2 tablets by mo uth every eight hours as needed acetaminophen (TYLENOL) 500 MG tablet Take 1,000 mg by mouth every 8 (eight) hours as needed for pain . No more than 6 tablets daily . 0 Active acetaminophen 325 mg / HYDROcodone bitartrate 5 mg oral tablet (20 sources) Opioid Agonist Start: 04-25-2020 End: 06-19-2020 HYDROcodone-acetaminophen (NORCO) 5-325 mg per tablet Start: 04-15-2020 End: 04-21-2020 take 10 mL by mouth every six hours as needed HYDROcodone-acetaminophen (HYCET) 5-217 mg/10 mL oral solution 10 mL Start: 11-02-2019 End: 11-03-2019 take 1 tablet by mouth every twelve hours as needed 1 tablet, Oral, Every 12 hours PRN, moderate to severe pain, Starting 11/02/19 at 1533 End: 04-12-2020 take 1 tablet by mouth every eight hours as needed HYDROcodone-acetaminophen (NORCO) 10-325 mg per tablet Take 1 tablet by mouth every 8 (eight) hours as needed for pain . 0 04/12/2020 Discontinued (Error) take 1 tablet by ken th every twelve hours as needed HYDROcodone-acetaminophen (NORCO) 10-325 mg per tablet Take 1 tablet by mouth every 12 (twelve) hours as needed for pain . 0 Active albuterol 90 mcg/actuation inhaler (20 sources) Start: 06-14-2020 End: 07-25-2020 take 2 puff(s) by inhalation every four hours as needed for chronic obstructive pulmonary disease albuterol 90 mcg/actuation inhaler Indications: chronic obstructive pulmonary disease Inhale 2 (two) puffs every 4 (four) hours as needed for wheezing Reasons: chronic obstructive pulmonary disease. 1 Inhaler 6 06/14/2020 07/25/2020 Discontinued (Duplicate order) Start: 06-14-2020 take 2 puff(s) by in halation every four hours as needed for chronic obstructive pulmonary disease albuterol 90 mcg/actuation inhaler Indications: chronic obstructive pulmonary disease Inhale 2 (two) puffs every 4 (four) hours as needed for wheezing Reasons: chronic obstructive pulmonary disease. 1 Inhaler 6 06/14/2020 Active Start: 06-14-2020 End: 07-14-2020 take 2 puff(s) by inhalation every four hours as needed for chronic obstructive pulmonary disease albuterol 90 mcg/actuation inhaler Indications: chronic obstructive pulmonary disease Inhale 2 (two) puffs every 4 (four) hours as needed for wheezing Reasons: chronic obstructive pulmonary disease. 1 Inhaler 6 06/14/2020 07/14/2020 Active Start: 03-30-2020 End: 06-14-2020 take 2 puff(s) by inhalation every four to six hours as needed for chronic obstructive pulmonary disease albuterol 90 mcg/actuation inhaler Indications: chronic obstructive pulmonary disease Inhale 2 (two) puffs every 4 to 6 hours as needed for wheezing Reasons: chronic obstructive pulmonary disease. 1 Inhaler 0 03/30/2020 06/14/2020 Discontinued (Reorder) Start: 03-30-2020 take 2 puff(s) by in halation every four to six hours as needed for chronic obstructive pulmonary disease albuterol 90 mcg/actuation inhaler Indications: chronic obstructive pulmonary disease Inhale 2 (two) puffs every 4 to 6 hours as needed for wheezing Reasons: chronic obstructive pulmonary disease. 1 Inhaler 0 03/30/2020 Active Start: 03-30-2020 End: 04-29-2020 take 2 puff(s) by inhalation every four to six hours as needed for chronic obstructive pulmonary disease albuterol 90 mcg/actuation inhaler Indications: chronic obstructive pulmonary disease Inhale 2 (two) puffs every 4 to 6 hours as needed for wheezing Reasons: chronic obstructive pulmonary disease. 1 Inhaler 0 03/30/2020 04/29/2020 Active take 2 puff(s) by in halation every four hours as needed for wheezing albuterol 90 mcg/actuation inhaler Inhale 2 puffs every 4 (four) hours as needed for wheezing . 0 Active take 2 puff(s) by in halation every four to six hours as needed for chronic obstructive pulmonary disease albuterol 90 mcg/actuation inhaler Indications: chronic obstructive pulmonary disease Inhale 2 puffs every 4 to 6 hours as needed for wheezing Reasons: chronic obstructive pulmonary disease. 0 Active take 2 puff(s) by in halation every four to six hours as needed albuterol 90 mcg/actuation inhaler Inhale 2 puffs every 4 to 6 hours as needed . 0 Active aluminum hydroxide 40 mg/ml / magnesium hydroxide 40 mg/ml / simethicone 4 mg/ml oral suspension (3 sources) Start: 08-19-2021 End: 08-21-2021 take 30 mL by mouth every four hours as needed 30 mL, Oral, Every 4 hours PRN, indigestion, Starting on Thu08/19/21 at 2016 Start: 08-09-2020 End: 08-13-2020 take 30 mL by mouth every four hours as needed 30 mL, Oral, Every 4 hours PRN, indigestion, Starting [facility] 08/09/20 at 0420 Start: 12-14-2017 End: 12-15-2017 take 30 mL by mouth every four hours as needed amoxicillin 500 mg oral capsule (3 sources) Penicillin-class Antibacterial Start: 10-24-2023 End: 11-03-2023 amoxicillin (AMOXIL) capsule 500 mg ampicillin-sulbac nice (UNASYN) 3000 mg in sodium chloride (NS) 0.9% 100 mL MBP (1 source) Start: 07-17-2020 End: 07-19-2020 take 3000 mg intravenous route every six hours ampicillin-sulba ctam (UNASYN) 3000 mg in sodium chloride (NS) 0.9% 100 mL MBP atorvastatin 20 mg oral tablet (12 sources) HMG-CoA Reductase Inhibitor Start: 06-25-2018 End: 11-03-2019 take 20 mg by mouth once daily 20 mg, Oral, Nightly, First dose on Thu11/02/19 at 2100 Start: 01-10-2017 End: 12-29-2017 take 1 tablet by mouth once daily atorvastatin (LIPITOR) 20 MG tablet Take 1 (one) tablet (20 mg total) by mouth nightly. 30 tablet 0 01/10/2017 Active azithromycin (ZITHROMAX) 500 mg in sodium chloride (NS) 0.9% 250 mL (vialmate) (3 sources) Start: 08-08-2020 End: 08-09-2020 azithromycin (ZITHROMAX) 500 mg in sodium chloride (NS) 0.9% 250 mL (vialmate) Start: 04-13-2020 End: 04-13-2020 azithromycin (ZITHROMAX) 500 mg in sodium chloride (NS) 0.9% 250 mL (vialmate) Start: 04-11-2020 End: 04-12-2020 azithromycin (ZITHROMAX) 500 mg in sodium chloride (NS) 0.9% 250 mL (vialmate) Budesonide / formoterol (20 sources) Corticosteroid, beta2-Adrenergic Agonist Start: 08-21-2021 End: 10-25-2023 take 2 puff(s) by inhalation twice daily budesonide-formoteroL (SYMBICORT) 160-4.5 mcg/actuation inhaler Inhale 2 (two) puffs 2 (two) times a day . 1 each 2 08/21/2021 10/25/2023 Discontinued (Error) Start: 08-21-2021 End: 08-21-2022 take 2 puff(s) by inhalation twice daily budesonide-formoteroL (SYMBICORT) 160-4.5 mcg/actuation inhaler Inhale 2 (two) puffs 2 (two) times a day . 1 each 2 08/21/2021 08/21/2022 Active Start: 08-21-2021 End: 08-21-2022 take 2 puff(s) by inhalation twice daily budesonide-formoteroL (SYMBICORT) 160-4.5 mcg/actuation inhaler Inhale 2 (two) puffs 2 (two) times a day . 1 each 2 08/21/2021 08/21/2022 Start: 08-19-2021 End: 08-21-2021 take 2 puff(s) by inhalation twice daily 2 puff, Inhalation, 2 times daily, First dose on Thu08/19/21 at 2100 SPACER REQUIRED FOR ADMINISTRATION Start: 06-05-2021 End: 08-21-2021 take 2 puff(s) by inhalation twice daily budesonide-formoteroL (SYMBICORT) 160-4.5 mcg/actuation inhaler Inhale 2 (two) puffs 2 (two) times a day . each 06/05/2021 08/21/2021 Discontinued (Reorder) Start: 06-05-2021 take 2 puff(s) by in halation twice daily budesonide-formoteroL (SYMBICORT) 160-4.5 mcg/actuation inhaler Inhale 2 (two) puffs 2 (two) times a day . 1 each 06/05/2021 Active Start: 05-07-2021 End: 06-05-2021 take 2 puff(s) by inhalation twice daily budesonide-formoteroL (SYMBICORT) 160-4.5 mcg/actuation inhaler Inhale 2 (two) puffs 2 (two) times a day . 1 each 05/07/2021 06/05/2021 Discontinued (Reorder) Start: 05-07-2021 take 2 puff(s) by in halation twice daily budesonide-formoteroL (SYMBICORT) 160-4.5 mcg/actuation inhaler Inhale 2 (two) puffs 2 (two) times a day . 1 each 05/07/2021 Active Start: 08-09-2020 End: 08-13-2020 take 2 puff(s) by inhalation twice daily 2 puff, Inhalation, 2 times daily, First dose on Thu08/09/20 at 0900 SPACER REQUIRED FOR ADMINISTRATION Start: 07-25-2020 End: 07-26-2020 take 2 puff(s) by inhalation twice daily 2 puff, Inhalation, 2 times daily, First dose (after last modification) on Thu07/25/20 at 2100 SPACER REQUIRED FOR ADMINISTRATION Start: 07-17-2020 End: 07-19-2020 take 2 puff(s) by inhalation twice daily 2 puff, Inhalation, 2 times daily, First dose on Thu07/17/20 at 2215 SPACER REQUIRED FOR ADMINISTRATION Start: 06-14-2020 End: 07-25-2020 take 2 puff(s) by inhalation twice daily budesonide-formoteroL (SYMBICORT) 160-4.5 mcg/actuation inhaler Inhale 2 (two) puffs 2 (two) times a day . 1 Inhaler 06/14/2020 07/25/2020 Discontinued (Duplicate order) Start: 06-14-2020 take 2 puff(s) by in halation twice daily budesonide-formoteroL (SYMBICORT) 160-4.5 mcg/actuation inhaler Inhale 2 (two) puffs 2 (two) times a day . 1 Inhaler 06/14/2020 Active Start: 06-14-2020 End: 07-14-2020 take 2 puff(s) by inhalation twice daily budesonide-formoteroL (SYMBICORT) 160-4.5 mcg/actuation inhaler Inhale 2 (two) puffs 2 (two) times a day . 1 Inhaler 06/14/2020 07/14/2020 Active Start: 04-14-2020 End: 04-21-2020 take 2 puff(s) by inhalation twice daily 2 puff, Inhalation, 2 times daily, First dose on 04/14/20 at 0900 SPACER REQUIRED FOR ADMINISTRATION Start: 04-12-2020 End: 04-12-2020 take 2 puff(s) by inhalation twice daily 2 puff, Inhalation, 2 times daily, First dose on Tammy 04/12/20 at 0100 SPACER REQUIRED FOR ADMINISTRATION Start: 03-30-2020 End: 06-14-2020 take 2 puff(s) by inhalation twice daily budesonide-formoteroL (SYMBICORT) 160-4.5 mcg/actuation inhaler Inhale 2 (two) puffs 2 (two) times a day . 1 Inhaler 0 03/30/2020 06/14/2020 Discontinued (Reorder) Start: 03-30-2020 take 2 puff(s) by in halation twice daily budesonide-formoteroL (SYMBICORT) 160-4.5 mcg/actuation inhaler Inhale 2 (two) puffs 2 (two) times a day . 1 Inhaler 0 03/30/2020 Active Start: 03-30-2020 End: 04-29-2020 take 2 puff(s) by inhalation twice daily budesonide-formoteroL (SYMBICORT) 160-4.5 mcg/actuation inhaler Inhale 2 (two) puffs 2 (two) times a day . 1 Inhaler 0 03/30/2020 04/29/2020 Active Start: 11-02-2019 End: 11-03-2019 take 2 puff(s) by inhalation twice daily 2 puff, Inhalation, 2 times daily (RT), First dose on Thu11/02/19 at 2000 End: 05-07-2021 take 2 puff(s) by inhalation twice daily budesonide-formoteroL (SYMBICORT) 160-4.5 mcg/actuation inhaler Inhale 2 puffs 2 (two) times a day . 0 05/07/2021 Discontinued (Reorder) take 2 puff(s) by in halation twice daily budesonide-formoteroL (SYMBICORT) 160-4.5 mcg/actuation inhaler Inhale 2 puffs 2 (two) times a day . 0 Suspended take 2 puff(s) by in halation twice daily budesonide-formoteroL (SYMBICORT) 160-4.5 mcg/actuation inhaler Inhale 2 puffs 2 (two) times a day . 0 Active 120 actuat budesonide 0.16 mg/actuat / formoterol fumarate 0.0048 mg/actuat / glycopyrrolate 0.009 mg/actuat metered dose inhaler (1 source) Corticosteroid, beta2-Adrenergic Agonist Start: 10-29-2023 End: 10-31-2023 take 2 puff(s) by inhalation twice daily 2 puff, Inhalation, 2 TIMES DAILY, First dose on Thu10/29/23 at 2100, Until Discontinued 2 ml bupivacaine hydrochloride 7.5 mg/ml injection (1 source) Amide Local Anesthetic Start: 01-28-2021 End: 01-28-2021 bupivacaine 0.75% in dextrose 8.25% (PF) (intrathecal) (SENSORCAINE) 0.75 % (7.5 mg/mL) injection buprenorphine 8 mg / naloxone 2 mg sublingual film (20 sources) Partial Opioid Agonist, Opioid Antagonist Start: 08-19-2021 End: 10-25-2023 8 mg of buprenorphine, Sublingual, 2 times daily, First dose on Thu08/19/[address] one film under tongue until dissolves. If needed, a second film may be placed under tongue on the opposite side from the first film (minimize overlapping). Do not move film after placement. If a third film is needed, wait until the first 2 films have dissolved. Splitting a film in half may be clinically appropriate.&nbs p;Verify patient has received Patient Med Guide for Suboxone. Indication: Treatment of opioid dependence Is this a continuation of home therapy? Yes Start: 08-09-2020 End: 08-13-2020 buprenorphine-nalOXone (SUBO XONE) 8-2 mg sublingual film 8 mg of buprenorphine Start: 07-25-2020 End: 07-26-2020 8 mg of buprenorphine, Subli ngual, Daily, First dose on Thu07/25/20 at 1600, For [address] one film under tongue until dissolves. If needed, a second film may be placed under tongue on the opposite side from the first film (minimize overlapping). Do not move film after placement. If a third film is needed, wait until the first 2 films have dissolved. Splitting a film in half may be clinically appropriate. Verify patient has received Patient Med Guide for Suboxone. Indication: Treatment of opioid dependence Is this a continuation of home therapy? Yes Start: 07-18-2020 End: 07-19-2020 8 mg of buprenorphine, Subli ngual, Daily, First dose on 07/18/[address] one film under tongue until dissolves. If needed, a second film may be placed under tongue on the opposite side from the first film (minimize overlapping). Do not move film after placement. If a third film is needed, wait until the first 2 films have dissolved. Splitting a film in half may be clinically appropriate. Verify patient has received Patient Med Guide for Suboxone. Indication: Treatment of opioid dependence Is this a continuation of home therapy? Yes Start: 06-12-2020 End: 07-17-2020 buprenorphine-nalOXone (SUBO XONE) 8-[address] 1 tablet under the tongue every morning . 0 06/12/2020 07/17/2020 Discontinued (Error) Start: 06-12-2020 buprenorphine- nalOXone (SUBOXONE) 8-2 mg tablet Start: 04-12-2020 End: 04-12-2020 take 8 mg under the tongue once daily 8 mg of buprenorphine, Sublingual, Daily , First dose on Tammy 04/12/20 at 0900 Verify patient has received Patient Med Guide for Suboxone. Indication: Treatment of opioid dependence Is this a continuation of home therapy? Yes Start: 04-06-2020 End: 04-14-2020 buprenorphine-nalOXone (SUBO XONE) 8-[address] 1 tablet under the tongue daily . 0 04/06/2020 04/14/2020 Discontinued (Error) calcium chloride 0.0014 meq/ ml / potassium chloride 0.004 meq/ml / sodium chloride 0.103 meq/ml / sodium lactate 0.028 meq/ml injectable solution (2 sources) Start: 10-29-2023 End: 10-29-2023 1,000 mL, Intravenous, ONCE, 1 dose, On Tammy 10/29/23 at 1645 Start: 01-28-2021 End: 01-28-2021 lactated Ringers infusion 10 ml calcium gluconate 100 mg/ml injection (1 source) Start: 08-11-2020 End: 08-11-2020 calcium gluconate 100 mg/mL (10%) injection 1 g ceFAZolin 2000 mg injection (2 sources) Cephalosporin Antibacterial Start: 01-28-2021 End: 01-28-2021 ceFAZolin (ANCEF) IVPB 2 g (premix) Start: 08-12-2020 End: 08-13-2020 take 2000 mg intravenous route every eight hours ceFAZolin (ANCEF) IVPB 2 g (premix) cefTRIAXone 1000 mg injection (2 sources) Cephalosporin Antibacterial Start: 08-08-2020 End: 08-09-2020 cefTRIAXone (ROCEPHIN) IVPB 1 g (premix) Start: 04-13-2020 End: 04-13-2020 cefTRIAXone (ROCEPHIN) IVPB 2 g (premix) cyanocobalamin, vitamin B-12, (VITAMIN B12 ORAL) (16 sources) End: 08-19-2021 take 1 tablet by mouth once daily cyanocobalamin, vitamin B-12, (VITAMIN B12 ORAL) Take 1 tablet by mouth daily . 0 08/19/2021 Discontinued take 1 tablet by mouth once april y cyanocobalamin, vitamin B-12, (VITAMIN B12 ORAL) Take 1 tablet by mouth daily . 0 Suspended take 1 tablet by mouth once april y cyanocobalamin, vitamin B-12, (VITAMIN B12 ORAL) Take 1 tablet by mouth daily . 0 Active 1 ml dexamethasone phosphate 10 mg/ml injection (1 source) Corticosteroid Start: 05-28-2020 End: 05-28-2020 dexAMETHasone sodium phos (PF) injection 10 mg 0.4 ml enoxaparin sodium 100 mg/ml prefilled syringe (10 sources) Low Molecular Weight Heparin Start: 10-29-2023 End: 10-31-2023 inject 40 mg by subcutaneous injection every twenty-four hours 40 mg, Subcutaneous, EVERY 24 HOURS, First dose on Tammy 10/29/23 at 2100, Until Discontinued, For SUBCUTANEOUS route ONLY: alternate injection sites between left and right abdominal wall, pinching location and avoiding area around navel. If unable to use abdominal sites, may use the front or side of thighs., Indications: DVT/PE prophylaxis Start: 10-26-2023 End: 10-27-2023 inject 40 mg by subcutaneous injection once daily 40 mg, Subcutaneous, Daily, First dose on 10/26/23 at 1100, Administer in abdomen unless otherwise directed by prescriber. Notify physician if patient refuses., Indication: VTE Prophylaxis Start: 08-19-2021 End: 08-21-2021 inject 40 mg by subcutaneous injection once daily 40 mg, Subcutaneous, Daily, First dose on 08/19/21 at 2020 Administer in abdomen unless otherwise directed by prescriber. Notify physician if patient refuses. Indication: VTE Prophylaxis Start: 08-09-2020 End: 08-13-2020 inject 40 mg by subcutaneous injection once daily 40 mg, Subcutaneous, Daily, First dose on Tammy 08/09/20 at 0800 Administer in abdomen unless otherwise directed by prescriber. Notify physician if patient refuses. Indication: VTE Prophylaxis Start: 07-25-2020 End: 07-26-2020 enoxaparin (LOVENOX) syringe 40 mg Start: 07-18-2020 End: 07-19-2020 inject 40 mg by subcutaneous injection once daily 40 mg, Subcutaneous, Daily, First dose on 07/18/20 at 0800 Administer in abdomen unless otherwise directed by prescriber. Notify physician if patient refuses. Indication: VTE Prophylaxis Start: 04-14-2020 End: 04-21-2020 inject 40 mg by subcutaneous injection once daily 40 mg, Subcutaneous, Daily, First dose on 04/14/20 at 0800 Administer in abdomen unless otherwise directed by prescriber. Notify physician if patient refuses. Indication: VTE Prophylaxis Start: 04-12-2020 End: 04-12-2020 inject 40 mg by subcutaneous injection once daily 40 mg, Subcutaneous, Daily, First dose on Tammy 04/12/20 at 0800 Administer in abdomen unless otherwise directed by prescriber. Notify physician if patient refuses. Indication: VTE Prophylaxis Start: 11-02-2019 End: 11-03-2019 inject 40 mg by subcutaneous injection once daily 40 mg, Subcutaneous, Daily, First dose on 11/02/19 at 1535 Administer in abdomen unless otherwise directed by prescriber. Notify physician if patient refuses. Indication: VTE Prophylaxis Start: 12-14-2017 End: 12-15-2017 famotidine 20 mg oral tablet (9 sources) Histamine-2 Receptor Antagonist Start: 01-22-2024 End: 05-17-2024 take 1 tablet by mouth once daily Famotidine 20 mg tablet Discontinued 20 mg PO DAILY 5 0 January 22, 2024 12:00am May 17, 2024 7:21pm Start: 12-14-2017 End: 12-14-2017 1 ml fentaNYL 0.05 mg/ml injection (1 source) Opioid Agonist Start: 01-28-2021 End: 01-28-2021 fentaNYL (SUBLIMAZE) injection 60 actuat formoterol fumarate 0.005 mg/actuat / mometasone furoate 0.2 mg/actuat metered dose inhaler (20 sources) Corticosteroid , beta2-Adrenerg ic Agonist Start: 10-26-2023 End: 10-27-2023 take 2 puff(s) by inhalation twice daily 2 puff, Inhalation, 2 times daily (RT), First dose on Thu10/26/23 at 1200, SPACER REQUIRED FOR ADMINISTRATION Start: 05-25-2019 End: 10-02-2023 take 1 puff(s) by mouth twice daily Mometasone Furo-Formoterol Fum (DULERA) 100-5 MCG/ACT Aerosol Inhale 1 puff by mouth 2 times daily. 13 g 05/25/2019 10/02/2023 Discontinued End: 08-21-2021 mometasone-formoterol (Duler a) 200-5 mcg/actuation HFAA Inhale 2 (two) times a day . 0 08/21/2021 Discontinued (Stop Taking at Discharge) take 2 puff(s) by in halation twice daily mometasone-formoterol (Dulera) 200-5 mcg/actuation HFAA Indications: bronchospasm prevention with COPD Inhale 2 puffs 2 (two) times a day Reasons: bronchospasm prevention with COPD. 0 Active take 2 puff(s) by in halation twice daily mometasone-formoterol (Dulera) 100-5 mcg/actuation HFAA Inhale 2 puffs 2 (two) times a day . 0 Active gabapentin 300 mg oral capsule (20 sources) Anti-epileptic Agent Start: 10-28-2022 End: 10-29-2023 take 1 capsule by mouth three times daily as needed for pain Gabapentin 300 MG capsule Take 1 capsule by mouth 3 times daily as needed for Other (pain). R 10/28/2022 10/29/2023 Discontinued Start: 06-25-2021 End: 08-21-2021 take 300 mg by mouth once daily 300 mg, Oral, Nightly, First dose on Thu08/19/21 at 2100 Start: 12-29-2017 End: 11-03-2019 gabapentin (NEURONTIN) 400 M G capsule Indications: Bilateral hip pain Take 1 (one) capsule (400 mg total) by mouth every 8 (eight) hours (Days supply per fill: 30). 90 capsule 3 12/29/2017 11/03/2019 Discontinued (Error) Start: 12-15-2017 End: 12-29-2017 gabapentin (NEURONTIN) 300 M G capsule Take 1 (one) capsule (300 mg total) by mouth every 8 (eight) hours (Days supply per fill: 30). 90 capsule 0 12/15/2017 12/29/2017 Discontinued Gadobenate Dimeglumine 529 Mg/Ml(0.1 Mmol/0.2 Ml) Intravenous Solution (1 source) Start: 01-10-2017 End: 01-10-2017 gadobenate dimeglumine (MULTIHANCE) injection 10 mL 10 mL, Intravenous, Once in imaging, contrast, Starting 01/10/17 at 1209, For 1 dose 2 ml glycopyrrolate 0.2 mg/ml injection (1 source) Start: 01-28-2021 End: 01-28-2021 glycopyrrolate (ROBINUL) injection 1 ml heparin sodium, porcine 5000 unt/ml injection (1 source) Unfractionated Heparin, Anti-coagulant Start: 01-09-2017 End: 01-10-2017 inject 5000 [IU] by subcutaneous injection every eight hours heparin (porcine) injection 5,000 Units 5,000 Units, Subcutaneous, Every 8 hours scheduled, First dose on Thu01/09/17 at 2200, Notify physician if patient refuses. homatropine methylbromide 0.3 mg/ml / HYDROcodone bitartrate 1 mg/ml oral solution (1 source) Opioid Agonist, Cholinergic Muscarinic Agonist Start: 08-11-2019 End: 08-11-2019 HYDROcodone-homat ropine (HYCODAN,HYDROMET ) 5-1.5 mg/5 mL syrup 5 mL hydroCHLOROthiazide 12.5 mg oral tablet (20 sources) Thiazide Diuretic Start: 08-20-2021 End: 08-21-2021 take 12.5 mg by mouth once daily in the morning 12.5 mg, Oral, Every morning, First dose on Thu08/20/21 at 0900 Start: 07-18-2020 End: 07-19-2020 take 12.5 mg by mouth once daily in the morning 12.5 mg, Oral, Every morning, First dose on Thu07/18/20 at 0900 Start: 04-20-2020 End: 04-21-2020 hydroCHLOROthiazide (HYDRODI URIL) tablet 50 mg Start: 04-19-2020 End: 04-19-2020 hydroCHLOROthiazide (HYDRODI URIL) tablet 25 mg Start: 04-16-2020 End: 04-18-2020 hydroCHLOROthiazide (HYDRODI URIL) tablet 12.5 mg Start: 04-12-2020 End: 04-12-2020 take 12.5 mg by mouth once daily 12.5 mg, Oral, Daily, First dose on Thu04/12/20 at 0900 End: 10-25-2023 take 1 tablet by mouth once daily in the morning hydroCHLOROthiazide (HYDRODIURIL) 12.5 MG tablet Take 1 (one) tablet (12.5 mg total) by mouth every morning . 0 10/25/2023 Discontinued (Error) 0.5 ml HYDROmorphone hydrochloride 1 mg/ml prefilled syringe (1 source) Opioid Agonist Start: 04-13-2020 End: 04-13-2020 HYDROmorphone (DILAUDID) injection 1 mg ibuprofen 600 mg oral tablet (10 sources) Nonsteroidal Anti-inflammatory Drug Start: 08-09-2020 End: 08-13-2020 take 1 tablet by mouth every six hours as needed ibuprofen (ADVIL,MOTRIN) tablet 600 mg Start: 07-25-2020 End: 07-26-2020 take 1 tablet by mouth every six hours as needed ibuprofen (ADVIL,MOTRIN) tablet 600 mg Start: 07-20-2020 End: 07-20-2021 take 1 tablet by mouth every eight hours as needed for pain ibuprofen (ADVIL,MOTRIN) 800 MG tablet Indications: Primary osteoarthritis of right hip Take 1 (one) tablet (800 mg total) by mouth every 8 (eight) hours as needed for pain . 90 tablet 1 07/20/2020 08/09/2020 Discontinued Start: 04-20-2020 End: 04-21-2020 take 1 tablet by mouth every six hours as needed ibuprofen (ADVIL,MOTRIN) tablet 600 mg End: 11-03-2019 take 1 tablet by mouth every twelve hours as needed ibuprofen (ADVIL,MOTRIN) 600 MG tablet Take 600 mg by mouth every 12 (twelve) hours as needed for pain . 0 11/03/2019 Discontinued (Error) iopamidol (3 sources) Radiographic Contrast Agent Start: 01-09-2018 End: 01-09-2018 iopamidol (ISOVUE-370) 76 % injection 100 mL Start: 12-14-2017 End: 12-14-2017 iopamidol (ISOVUE-370) 76 % injection 80 mL Start: 12-13-2017 End: 12-13-2017 iopamidol (ISOVUE-370) 76 % injection 75 mL iopamidoL (ISOVUE-370) 76 % injection 75 mL (1 source) Start: 08-19-2021 End: 08-19-2021 iopamidoL (ISOVUE-370) 76 % injection 75 mL 1 ml ketorolac tromethamine 30 mg/ml injection (3 sources) Nonsteroidal Anti-inflammatory Drug, Cyclooxygenase Inhibitor Start: 10-03-2020 End: 10-03-2020 ketorolac (TORADOL) injection 30 mg Start: 08-08-2020 End: 08-08-2020 ketorolac (TORADOL) injectio n 15 mg Start: 04-14-2020 End: 04-14-2020 take 30 mg intravenous route every six hours 30 mg, Intravenous, Every 6 hours, First dose on 04/14/20 at 0330, For 2 doses 1.5 ml leuprolide acetate 30 mg/ml prefilled syringe (2 sources) Gonadotropin Releasing Hormone Receptor Agonist Start: 03-14-2025 End: 03-14-2025 leuprolide acetate (6 month) (LUPRON) IM injection 45 mg Start: 03-14-2025 End: 03-14-2025 45 mg, Intramuscular, Once, On 03/14/25 at 1445, For 1 dose, CATEGORY B HAZARDOUS DRUG use safe handling precautions. Use reference link to view PPE guidelines. Hormonal Agent (Refer to Policy Rx- 910.023) levalbuterol 2.5 mg/ml inhalant solution (1 source) beta2-Adrenergic Agonist Start: 07-25-2020 End: 07-25-2020 levalbuterol (XOPENEX) nebulizer solution 1.25 mg lidocaine 0.04 mg/mg medicated patch (17 sources) Antiarrhythmic, Amide Local Anesthetic Start: 10-29-2023 End: 10-31-2023 apply 1 dose transdermal route every twenty-four hours 1 patch, Transdermal, Administer over 12 Hours, EVERY 24 HOURS, First dose on Tammy 10/29/23 at 2045, Until Discontinued, Apply to ribs . Start: 10-27-2023 End: 10-27-2023 take 5 mL oropharyngeal route every six hours as needed lidocaine (XYLOCAINE) 2 % viscous solution 5 mL Start: 05-27-2021 End: 06-26-2021 lidocaine 4 % patch Place 2 (two) patches on the skin daily Remove & Discard patch within 12 hours or as directed by MD Start: 05/27/21. 60 patch 0 05/27/2021 06/26/2021 Active Start: 01-28-2021 End: 01-28-2021 lidocaine 20 mg/mL (2 %) injection Start: 09-23-2019 lidocaine (LMX ) 4 % cream Apply topically every 12 (twelve) hours as needed To right hip . 0 09/23/2019 Active Start: 08-11-2019 End: 08-21-2019 take 5 mL by mouth every three hours lidocaine (XYLOCAINE) 2 % Soln Apply 5 mL to the mouth or throat every 3 (three) hours for 10 days . 100 mL 0 08/11/2019 08/21/2019 Active lisinopril 10 mg oral tablet (20 sources) Angiotensin Converting Enzyme Inhibitor Start: 01-21-2024 End: 01-22-2024 take 3 tablets by mouth once daily Lisinopril 10 mg tablet Discontinued 30 mg PO DAILY January 21, 2024 12:00am January 22, 2024 10:16am Start: 10-30-2023 End: 10-31-2023 take 30 mg by mouth once daily 30 mg, Oral, DAILY, [facility]ir [facility] dose on 5/24/24 at 0900, Until Discontinued Start: 10-26-2023 End: 10-27-2023 take 30 mg by mouth once daily 30 mg, Oral, Daily, [facility] dose on 10/26/23 at 1100 Start: 07-17-2023 take 1 tablet by ken th once daily lisinopriL (PRINIVIL,ZESTRIL) 20 MG tablet Take 1 (one) tablet (20 mg total) by mouth daily Total of 30mg . 07/17/2023 Active Start: 05-05-2022 take 1 tablet by ken th once daily lisinopriL (PRINIVIL,ZESTRIL) 10 MG tablet Take 1 (one) tablet (10 mg total) by mouth daily Total of 30mg . 05/05/2022 Active Start: 12-29-2017 End: 11-03-2019 take 1 tablet by mouth once daily lisinopril (PRINIVIL,ZESTRIL) 5 MG tablet Indications: Essential hypertension Take 1 (one) tablet (5 mg total) by mouth daily . 30 tablet 0 06/25/2018 11/03/2019 Discontinued (Error) melatonin 3 mg oral tablet (18 sources) Start: 10-29-2023 End: 10-31-2023 take 6 mg by mouth once daily at bedtime as needed 6 mg, Oral, DAILY AT BEDTIME NEEDED, Starting on Tammy 10/29/23 at 2017, Until 10/31/23 at 1412, Insomnia End: 10-25-2023 take 1 tablet by mouth once daily melatonin 3 mg Tab Take 1 (one) tablet (3 mg total) by mouth nightly . 0 10/25/2023 Discontinued (Error) methylPREDNISolone 125 mg injection (3 sources) Corticosteroid Start: 08-19-2021 End: 08-19-2021 methylPREDNISolone sod suc(PF) (SOLU-medrol) Injection 125 mg Start: 07-05-2020 End: 07-05-2020 methylPREDNISolone sod suc(P F) (SOLU-medrol) Injection 125 mg Start: 04-11-2020 End: 04-11-2020 methylPREDNISolone sod suc(P F) (SOLU-medrol) Injection 125 mg 5 ml metoprolol tartrate 1 m g/ml injection (2 sources) beta-Adrenergic Jose Alberto Start: 12-14-2017 End: 12-15-2017 Start: 12-14-2017 End: 12-14-2017 5 ml midazolam 1 mg/ml injection (1 source) Benzodiazepine Start: 01-28-2021 End: 01-28-2021 midazolam (VERSED) injection 1 ml morphine sulfate 2 mg/ml prefilled syringe (1 source) Opioid Agonist Start: 04-13-2020 End: 04-13-2020 morphine injection 4 mg mupirocin 0.02 mg/mg topical ointment (2 sources) RNA Synthetase Inhibitor Antibacterial Start: 01-24-2021 apply 15 g nasal route twice daily mupirocin (BACTROBAN) 2 % ointment Indications: Primary osteoarthritis of right hip Apply 0.5g into each nostril twice daily x 5 days prior to surgery . 15 g 0 01/24/2021 Suspended naloxone (NARCAN) injection 0.1 mg (7 sources) Start: 10-25-2023 End: 10-27-2023 naloxone (NARCAN) injection 0.1 mg Start: 08-19-2021 End: 08-21-2021 naloxone (NARCAN) injection 0.1 mg Start: 08-09-2020 End: 08-13-2020 naloxone (NARCAN) injection 0.1 mg Start: 07-25-2020 End: 07-26-2020 naloxone (NARCAN) injection 0.1 mg Start: 07-17-2020 End: 07-19-2020 naloxone (NARCAN) injection 0.1 mg Start: 04-15-2020 End: 04-21-2020 naloxone (NARCAN) injection 0.1 mg Start: 11-02-2019 End: 11-03-2019 naloxone (NARCAN) injection 0.1 mg neostigmine methylsulfate 0.5 mg/ml injectable solution (1 source) Start: 01-28-2021 End: 01-28-2021 neostigmine (PROSTIGMIN) injection nitroglycerin 0.4 mg sublingual tablet (6 sources) Nitrate Vasodilator Start: 08-19-2021 End: 08-21-2021 0.4 mg, Sublingual, Every 5 min PRN, chest pain, Starting on Thu08/19/21 at 2016 For chest pain. May give up to 3 doses. Call physician for chest pain unrelieved by Nitroglycerin, or recurrent chest pain. DO NOT CRUSH OR CHEW. Start: 08-09-2020 End: 08-13-2020 0.4 mg, Sublingual, Every 5 min PRN, chest pain, Starting Tammy 08/09/20 at 0420 For chest pain. May give up to 3 doses. Call physician for chest pain unrelieved by Nitroglycerin, or recurrent chest pain. DO NOT CRUSH OR CHEW. Start: 11-02-2019 End: 11-03-2019 0.4 mg, Sublingual, Every 5 min PRN, chest pain, Starting 11/02/19 at 1533, For 3 doses For chest pain unrelieved by Nitroglycerin or recurrent chest pain, CALL PHYSICIAN DO NOT CRUSH OR CHEW. Start: 12-14-2017 End: 12-15-2017 ondansetron (ZOFRAN-ODT) disintegrating tablet 4 mg (3 sources) Start: 10-25-2023 End: 10-27-2023 take 1 tablet by mouth every six hours as needed for nausea and vomiting ondansetron (ZOFRAN-ODT) disintegrating tablet 4 mg Start: 08-19-2021 End: 08-21-2021 take 1 tablet by mouth every six hours as needed for nausea and vomiting ondansetron (ZOFRAN-ODT) disintegrating tablet 4 mg Start: 08-09-2020 End: 08-13-2020 take 1 tablet by mouth every six hours as needed ondansetron (ZOFRAN-ODT) disintegrating tablet 4 mg Ondansetron 4mg/2ml (ZOFRAN) injection 4 mg (1 source) Start: 10-29-2023 End: 10-31-2023 take 4 mg intravenously every six hours as needed Ondansetron 4mg/2ml (ZOFRAN) injection 4 mg pantoprazole 40 mg delayed release oral tablet (18 sources) Proton Pump Inhibitor Start: 10-30-2023 End: 10-31-2023 take 40 mg by mouth once daily 40 mg, Oral, DAILY, First dose on Thu10/30/23 at 0900, Until Discontinued, Swallow whole; do not crush or chew., Indications: GERD Start: 10-26-2023 End: 10-27-2023 take 40 mg by mouth once daily 40 mg, Oral, Daily, Fir st dose on 10/26/23 at 1100, DO NOT CRUSH OR CHEW. Start: 06-25-2018 take 1 tablet by ken th once daily pantoprazole (PROTONIX) 40 MG tablet Indications: gastric ulcer Take 1 (one) tablet (40 mg total) by mouth daily Reasons: stomach ulcer. 30 tablet 0 06/25/2018 Active Start: 12-15-2017 End: 12-29-2017 take 1 tablet by mouth twice daily pantoprazole (PROTONIX) 40 MG tablet Indications: Gastric Ulcer Take 1 (one) tablet (40 mg total) by mouth 2 (two) times a day. 30 tablet 3 12/29/2017 Active End: 12-13-2017 take 1 tablet by mouth once daily pantoprazole (PROTONIX) 40 MG tablet Take 40 mg by mouth daily. 12/13/2017 Discontinued phenylephrine (OMAR-SYNEPHRINE) 50 mg in sodium chloride 0.9 % (NS) 250 mL infusion (1 source) Start: 01-28-2021 End: 01-28-2021 phenylephrine (OMAR-SYNEPHRINE) 50 mg in sodium chloride 0.9 % (NS) 250 mL infusion phenylephrine in 0.9% NaCl 1 mg/10 mL (100 mcg/mL) syringe (1 source) Start: 01-28-2021 End: 01-28-2021 phenylephrine in 0.9% NaCl 1 mg/10 mL (100 mcg/mL) syringe piperacillin 3000 mg / tazobactam 375 mg injection (1 source) Penicillin-cla ss Antibacterial, beta Lactamase Inhibitor Start: 04-16-2020 End: 04-21-2020 take 3.375 g intravenous route every eight hours piperacillin-tazobac nice (ZOSYN) IVPB 3.375 g (premix) polyethylene glycol 3350 03441 mg powder for oral solution (15 sources) Osmotic Laxative Start: 07-07-2023 End: 10-31-2023 17 g, Oral, DAILY NEEDED, Starting on Tammy 10/29/23 at 2017, Until 10/31/23 at 1412, Constipation 1st Line Start: 04-15-2020 End: 04-21-2020 polyethylene glycol (MIRALAX ) powder 17 g microencapsulated potassium chloride 20 meq extended release oral tablet (20 sources) Start: 10-30-2023 End: 10-31-2023 20 mEq, Oral, DAILY, First dose on Thu10/30/23 at 0900, Until Discontinued, Swallow tablets whole; do not crush, chew, or suck on tablet. Tablet may also be broken in half and each half swallowed separately. Start: 10-26-2023 End: 10-27-2023 20 mEq, Oral, Daily, First d ose on Thu10/26/23 at 1100, DO NOT CRUSH OR CHEW (if instructed may dissolve tablet(s) in liquid) DO NOT ADMINISTER DISSOLVED TABLET VIA SURGICALLY PLACED TUBE OR TUBE less than 14 [place]. To administer dissolved tablet(s) mix with 4 ounces of water over 2-3 minutes, stir for 30 seconds prior to administration; rinse dosing cup and administer residual medication to ensure full dose given Start: 08-11-2020 End: 08-11-2020 potassium chloride SA (K-DUR,KLOR-CON) CR tablet 20 mEq Start: 04-13-2020 End: 04-13-2020 potassium chloride SA (K-DUR,KLOR-CON) CR tablet 40 mEq End: 08-21-2021 take 1 tablet by mouth once daily in the morning potassium chloride SA (K-DUR,KLOR-CON) 20 MEQ tablet Take 1 (one) tablet (20 mEq total) by mouth every morning . Active 10 ml propofol 10 mg/ml injection (1 source) General Anesthetic Start: 01-28-2021 End: 01-28-2021 propofoL (DIPRIVAN) injection rocuronium bromide 10 mg/ml injectable solution (1 source) Nondepolarizing Neuromuscular Jose Alberto Start: 01-28-2021 End: 01-28-2021 rocuronium (ZEMURON) injection sennosides, jail 8.6 mg oral tablet (1 source) Start: 04-18-2020 End: 04-21-2020 senna (SENOKOT) tablet 8.6 mg 1000 ml sodium chloride 9 mg/ml injection (20 sources) Start: 10-29-2023 End: 10-31-2023 Intravenous, at 20 mL/hr, NEEDED, Starting on Tammy 10/29/23 at 2015, Until 10/31/23 at 1412, Carrier Fluid - See Admin. Inst, 250mL 0.9NS to be used as carrier fluid for intermittent small volume or piggyback medication administration as needed. Infusion rate of the carrier fluid should be set at 20 mL/hr unless the rate as the intermittent medication is less than 20 mL/hr. For intermittent medications with a rate less than 20 mL/hr set the carrier fluid at that rate of the intermittent or piggy back medication. Start: 10-26-2023 End: 10-27-2023 sodium chloride (PF) (NS) fl ush 5 mL Start: 08-19-2021 End: 08-21-2021 sodium chloride (PF) (NS) fl ush 5 mL Start: 12-13-2020 End: 12-13-2020 sodium chloride 0.9% (NS) Start: 12-13-2020 End: 12-13-2020 sodium chloride (PF) (NS) fl ush 5 mL Start: 09-21-2020 End: 09-21-2020 sodium chloride 0.9% (NS) rosa maria lubna 1,000 mL Start: 08-10-2020 End: 08-10-2020 sodium chloride 0.9 % (NS) infusion - ADS Override Pull Start: 08-09-2020 End: 08-13-2020 sodium chloride (PF) (NS) fl ush 5 mL Start: 08-08-2020 End: 08-09-2020 take 100 mL intravenous route every hour 100 mL/hr, Intravenous, Continuous, Starting [facility] 08/09/20 at 0515, For 10 hours Start: 07-26-2020 End: 07-26-2020 sodium chloride 0.9% (NS) rosa maria lubna 1,000 mL Start: 07-25-2020 End: 07-26-2020 sodium chloride (PF) (NS) fl ush 5 mL Start: 07-17-2020 End: 07-19-2020 sodium chloride (PF) (NS) fl ush 5 mL Start: 07-05-2020 End: 07-05-2020 sodium chloride (PF) (NS) fl ush 5 mL Start: 05-28-2020 End: 05-28-2020 sodium chloride (PF) (NS) fl ush 5 mL Start: 04-14-2020 End: 04-21-2020 sodium chloride (PF) (NS) fl ush 5 mL Start: 04-13-2020 End: 04-14-2020 sodium chloride 0.9% (NS) Start: 04-13-2020 End: 04-13-2020 sodium chloride 0.9% (NS) rosa maria lubna 1,000 mL Start: 04-12-2020 End: 04-12-2020 sodium chloride 0.9% (NS) rosa maria lubna 1,000 mL Start: 04-11-2020 End: 04-12-2020 sodium chloride (PF) (NS) fl ush 5 mL Start: 01-14-2020 End: 01-14-2020 sodium chloride (PF) (NS) fl ush 5 mL Start: 11-02-2019 End: 11-03-2019 125 mL/hr, Intravenous, Continuous, Starting 11/02/19 at 1535, For 16 hours 125 mL/hr for 2 Liters, then convert to saline lock Start: 11-02-2019 End: 11-03-2019 sodium chloride (PF) (NS) fl ush 5 mL Start: 08-11-2019 End: 08-11-2019 sodium chloride (PF) (NS) fl ush 5 mL Start: 01-09-2018 End: 01-10-2018 sodium chloride (PF) (NS) fl ush 5 mL Start: 12-15-2017 End: 12-15-2017 Start: 12-13-2017 End: 12-15-2017 sodium chloride (PF) (NS) fl ush 5 mL Start: 01-10-2017 End: 01-10-2017 take 75 mL intravenous route every hour sodium chloride 0.9% (NS) 75 mL/hr, Intravenous, Continuous, Starting 01/10/17 at 0030 sodium chloride (PF) (NS) 0. 9 % contrast line flush 10 mL (2 sources) Start: 09-21-2020 End: 09-21-2020 sodium chloride (PF) (NS) 0. 9 % contrast line flush 10 mL Start: 07-25-2020 End: 07-26-2020 sodium chloride (PF) (NS) 0. 9 % contrast line flush 10 mL succinylcholine-sod Cl,iso(PF) (ANECTINE) 200 mg/10 mL (20 mg/mL) injection (1 source) Start: 01-28-2021 End: 08-23-2021 succinylcholine-sod Cl,iso(PF) (ANECTINE) 200 mg/10 mL (20 mg/mL) injection 60 actuat tiotropium 0.0025 mg/actuat metered dose inhaler (20 sources) Anticholinergic Start: 07-18-2020 End: 07-19-2020 take 2 puff(s) by inhalation once daily 2 puff, Inhalation, Daily, First dose on Thu07/18/20 at 0900 Start: 06-14-2020 End: 07-25-2020 take 2 puff(s) by inhalation once daily tiotropium bromide (Spiriva Respimat) 2.5 mcg/actuation Mist Inhale 2 (two) puffs daily . 4 g 11 06/14/2020 07/25/2020 Discontinued (Duplicate order) Start: 04-18-2020 End: 04-21-2020 tiotropium bromide (SPIRIVA RESPIMAT) 2.5 mcg/actuation inhaler 2 puff Start: 04-12-2020 End: 04-12-2020 tiotropium bromide (SPIRIVA RESPIMAT) 2.5 mcg/actuation inhaler 2 puff Start: 03-30-2020 End: 06-14-2020 take 1 spray(s) by inhalation once daily tiotropium bromide (Spiriva Respimat) 2.5 mcg/actuation Mist Inhale 1 spray daily . 4 g 0 03/30/2020 06/14/2020 Discontinued (Reorder) Start: 11-02-2019 End: 11-03-2019 take 1 capsule by mouth twice daily 18 mcg, Inhalation, Daily (RT), First dose on Thu11/02/19 at 1535 For INHALATION use avery. Do NOT administer capsule orally. To ensure drug delivery, the contents of each capsule should be inhaled twice by the patient when administering the dose, and then discard capsule. Start: 12-29-2017 tiotropium bro mide (SPIRIVA RESPIMAT) 2.5 mcg/actuation Mist Indications: Chronic obstructive pulmonary disease, unspecified COPD type (HCC) Inhale 2 sprays daily. 4 g 5 12/29/2017 Active Start: 12-14-2017 End: 12-29-2017 take 1 capsule by inhalation once daily tiotropium (SPIRIVA) [address] 1 (one) capsule (18 mcg total) into inhaler and inhale daily. 30 capsule 2 12/14/2017 12/29/2017 Discontinued End: 10-25-2023 tiotropium bromide (Spiriva Respimat) 2.5 mcg/actuation Mist Inhale 5 mcg every morning . 0 10/25/2023 Discontinued (Error) take 5 ug by inhalat ion once daily, then take 2.5 ug by inhalation tiotropium bromide (Spiriva Respimat) 2.5 mcg/actuation Mist Inhale 5 mcg daily . 0 Active 100 ml tranexamic acid 10 mg/ml injection (1 source) Antifibrinolytic Agent Start: 01-28-2021 End: 01-28-2021 tranexamic acid in NaCl (CYLOKAPRON) IVPB 1,000 mg traZODone hydrochloride 50 mg oral tablet (20 sources) Serotonin Reuptake Inhibitor Start: 11-21-2020 End: 10-25-2023 traZODone (DESYREL) 50 MG tablet Take 1 (one) tablet to 2 (two) tablets (50-100 mg total) by mouth nightly as needed . 0 11/21/2020 10/25/2023 Discontinued (Error) Start: 11-21-2020 take 2 tablets by [facility] once daily traZODone (DESYREL) 50 MG tablet Take 100 mg by mouth nightly . 0 11/21/2020 Active Start: 08-09-2020 End: 08-13-2020 take 50 mg by mouth once daily as needed for sleep 50 mg, Oral, Nightly PRN, sleep, Starting [facility] 08/09/20 at 0420 [] May repeat times 1 in 30 minutes if still awake. 200 ml vancomycin 5 mg/ml injection (1 source) Glycopeptide Antibacterial Start: 01-28-2021 End: 01-28-2021 vancomycin (VANCOCIN) IVPB 1000 mg (premix) vancomycin (VANCOCIN) 1250 mg in sodium chloride 0.9% (NS) 250 mL IVPB (2 sources) Start: 08-09-2020 End: 08-11-2020 take 1250 mg intravenous route every twelve hours vancomycin (VANCOCIN) 1250 mg in sodium chloride 0.9% (NS) 250 mL IVPB Start: 04-14-2020 End: 04-14-2020 take 1250 mg intravenous route every twelve hours vancomycin (VANCOCIN) 1250 mg in sodium chloride 0.9% (NS) 250 mL IVPB vancomycin (VANCOCIN) 1500 mg in sodium chloride 0.9% (NS) 500 mL IVPB (1 source) Start: 08-11-2020 End: 08-12-2020 take 1500 mg intravenous route every twelve hours vancomycin (VANCOCIN) 1500 mg in sodium chloride 0.9% (NS) 500 mL IVPB Problems Active Problems Problem Classification Problem Date Documented Date Episodic/Chronic Abdominal hernia (2 sources) Bilateral inguinal hernia; Translations: [Bilateral inguinal hernia without obstruction or gangrene, recurrence not specified] Episodic Alcohol-related disorders (16 sources) Alcohol abuse; Translations: [Alcohol abuse, uncomplicated] Onset: 11-30-2018 11-30-2018 Chronic Allergic reactions (6 sources) Allergic condition; Translations: [Allergic state, subsequent encounter] Episodic Aortic; peripheral; and visceral artery aneurysms (20 sources) Thoracic aortic aneurysm without rupture; Translations: [Thoracic aortic aneurysm, without rupture] Onset: 01-01-2018 01-01-2018 Chronic Calculus of urinary tract (8 sources) Urolithiasis ; Translations: [Urinary calculus, unspecified] 07-13-2024 Episodic Cancer of prostate (20 sources) Malignant tumor of prostate; Translations: [Malignant neoplasm of prostate] Onset: 02-27-2025 02-14-2025 Chronic Cardiac dysrhythmias (2 sources) Tachycardia; Translations: [Tachycardia, unspecified] Episodic Cataract (1 source) Cataract; Translations: [Unspecified cataract] 10-02-2023 Chronic Chronic obstructive pulmonary disease and bronchiectasis (20 sources) Chronic obstructive lung disease; Translations: [Acute exacerbation of chronic obstructive airways disease] Onset: 12-29-2017 Resolved: 08-09-2020 12-29-2017 Chronic Complications of surgical procedures or medical care (3 sources) Postoperative hemorrhage; Translations: [Hemorrhage complicating a procedure] Onset: 02-08-2025 02-01-2025 Episodic Diseases of white blood cells (1 source) Leukocytosis; Translations: [Leukocytosis, unspecified type] Chronic E Codes: Adverse effects of medical drugs (8 sources) Angiotensin-converting -enzyme inhibitor adverse reaction; Translations: [Adverse effect of angiotensin-converting -enzyme inhibitors, initial encounter] 01-30-2024 Episodic Esophageal disorders (6 sources) Gastroesophageal reflux disease without esophagitis; Translations: [Gastroesophageal reflux disease without esophagitis] Chronic Essential hypertension (20 sources) Essential hypertension; Translations: [Essential (primary) hypertension] Onset: 01-10-2017 01-10-2017 Chronic External cause codes: Fall (1 source) Fall; Translations: [Fall, initial encounter] Fluid and electrolyte disorders (1 source) Hypokalemia; Translations: [Hypokalemia] Episodic Gastroduodenal ulcer (except hemorrhage) (20 sources) Peptic ulcer; Translations: [Peptic ulcer, site unspecified, unspecified as acute or chronic, without hemorrhage or perforation] Onset: 10-11-2017 Chronic Genitourinary symptoms and ill-defined conditions (1 source) Retention of urine; Translations: [Retention of urine, unspecified] Episodic Hyperplasia of prostate (20 sources) Benign prostatic hyperplasia; Translations: [Benign prostatic hyperplasia without lower urinary tract symptoms] Onset: 05-10-2022 10-05-2023 Chronic Immunizations and screening for infectious disease (5 sources) Contact with and (suspected) exposure to other viral communicable diseases; Translations: [Exposure to SARS-associated coronavirus] Episodic Nausea and vomiting (2 sources) Nausea and vomiting; Translations: [Non-intractable vomiting with nausea, unspecified vomiting type] Episodic Occlusion or stenosis of precerebral arteries (1 source) Occlusion and stenosis of unspecified carotid artery; Translations: [Occlusion and stenosis of unspecified carotid artery] Onset: 03-08-2025 Chronic Osteoarthritis (9 sources) Osteoarthritis of right hip joint; Translations: [Primary osteoarthritis of right hip] Other circulatory disease (6 sources) Personal history of other diseases of the circulatory system; Translations: [History of thoracoabdominal aortic aneurysm (TAAA)] Episodic Other circulatory disease (1 source) Feeling of lump in throat; Translations: [Globus sensation] Episodic Other circulatory disease (6 sources) History of transient ischemic attack; Translations: [Personal history of transient ischemic attack (TIA), and cerebral infarction without residual deficits] Onset: 10-29-2023 10-29-2023 Episodic Other circulatory disease (8 sources) H/O: hypertension; Translations: [Personal history of other diseases of the circulatory system] 05-20-2024 Episodic Other connective tissue disease (20 sources) History of repair of hip joint; Translations: [Presence of right artificial hip joint] Onset: 01-28-2021 01-28-2021 Chronic Other connective tissue disease (2 sources) History of total replacement of right hip joint; Translations: [Presence of right artificial hip joint] Chronic Other connective tissue disease (1 source) Weakness of left leg; Translations: [Other symptoms and signs involving the musculoskeletal system] Episodic Other connective tissue disease (1 source) Neurogenic claudication; Translations: [Other symptoms and signs involving the nervous system] 10-02-2023 Episodic Other diseases of bladder and urethra (1 source) Bladder outlet obstruction; Translations: [Bladder-neck obstruction] 10-28-2024 Chronic Other infections; including parasitic (6 sources) Personal history of other infectious and parasitic diseases; Translations: [History of sepsis] Episodic Other injuries and conditions due to external causes (13 sources) Foreign body in esophagus; Translations: [Unspecified foreign body in esophagus causing other injury, initial encounter] Episodic Other injuries and conditions due to external causes (8 sources) Angioedema; Translations: [Angioneurotic edema, initial encounter] 01-30-2024 Episodic Other injuries and conditions due to external causes (2 sources) Injury of penis; Translations: [Unspecified injury of external genitals, initial encounter] 10-18-2024 Episodic Other lower respiratory disease (13 sources) Dyspnea; Translations: [Shortness of breath] 01-10-2024 Episodic Other lower respiratory disease (1 source) Dyspnea on exertion; Translations: [SOB (shortness of breath) on exertion] Episodic Other lower respiratory disease (1 source) Cough; Translations: [Cough] Episodic Other lower respiratory disease (1 source) Hypoxia; Translations: [Hypoxia] Episodic Other lower respiratory disease (7 sources) H/O: respiratory disease; Translations: [Personal history of other diseases of the respiratory system] Episodic Other lower respiratory disease (17 sources) History of chronic obstructive airway disease; Translations: [Personal history of other diseases of the respiratory system] Episodic Other lower respiratory disease (1 source) Sputum abnormal - amount; Translations: [Abnormal sputum] 10-27-2023 Episodic Other lower respiratory disease (1 source) Tachypnea; Translations: [Tachypnea, not elsewhere classified] 10-27-2023 Episodic Other lower respiratory disease (8 sources) Respiratory insufficiency; Translations: [Other abnormalities of breathing] 05-20-2024 Episodic Other lower respiratory disease (14 sources) Hypoxemia; Translations: [Hypoxemia] 05-17-2024 Episodic Other male genital disorders (16 sources) Induratio penis plastica; Translations: [Induration penis plastica] Onset: 11-11-2024 10-28-2024 Chronic Other male genital disorders (1 source) Other specified disorders of penis; Translations: [Other specified disorders of penis] Onset: 09-26-2024 Chronic Other male genital disorders (1 source) Swelling of testicle; Translations: [Testicle swelling] Episodic Other nervous system disorders (3 sources) Paresthesia of upper limb; Translations: [Paresthesia of skin] Onset: 01-01-2018 01-01-2018 Episodic Other nervous system disorders (1 source) Impaired light touch sensation; Translations: [Other disturbances of skin sensation] Episodic Other nervous system disorders (1 source) Unequal reflexes; Translations: [Abnormal reflex] Episodic Other non-traumatic joint disorders (1 source) Pain in right hip joint; Translations: [Pain in right hip] Episodic Otitis media and related conditions (7 sources) Acute right otitis media; Translations: [Otitis media, unspecified, right ear] 08-18-2024 Episodic Residual codes; unclassified (20 sources) Tobacco user; Translations: [Tobacco use] Onset: 12-29-2017 12-29-2017 Chronic Residual codes; unclassified (1 source) Edema of lower extremity; Translations: [Bilateral edema of lower extremity] Episodic Residual codes; unclassified (20 sources) Tobacco user; Translations: [Tobacco use] Onset: 12-29-2017 08-09-2020 Episodic Residual codes; unclassified (1 source) Swelling - edema - symptom; Translations: [Edema, unspecified] Episodic Residual codes; unclassified (1 source) Procedure related finding; Translations: [Other specified health status] Episodic Residual codes; unclassified (2 sources) Past history of procedure; Translations: [Other specified postprocedural states] 02-01-2025 Episodic Residual codes; unclassified (1 source) Tobacco use; Translations: [Tobacco use] Onset: 04-12-2025 Episodic Respiratory failure; insufficiency; arrest (adult) (20 sources) [place]-hst[place] respiratory failure; Translations: [Acute and chronic respiratory failure, unspecified whether with hypoxia or hypercapnia] Onset: 08-19-2021 Chronic Screening or history of mental health and substance abuse (3 sources) Tobacco use and exposure - finding; Translations: [Tobacco use] Onset: 12-29-2017 12-29-2017 Chronic Spondylosis; intervertebral disc disorders; other back problems (17 sources) Degeneration of lumbar intervertebral disc; Translations: [Other intervertebral disc degeneration, lumbar region] Onset: 05-10-2022 10-05-2023 Chronic Substance-related disorders (20 sources) Smoker; Translations: [Substance misuse behavior] Onset: 11-30-2018 Resolved: 08-09-2020 04-16-2020 Chronic Unclassified (6 sources) Preprocedural examination done; Translations: [Preop examination] Unclassified (6 sources) Patient encounter status; Translations: [Preop cardiovascular exam] Unclassified (6 sources) COVID-19 virus infection; Translations: [COVID-19 virus infection] Past or Other Problems Problem Classification Problem Date Documented Date Episodic/Chronic Abdominal pain (1 source) Left lower quadrant pain; Translations: [Left lower quadrant pain] Onset: 07-22-2024 Episodic Adjustment disorders (20 sources) Adjustment disorder with depressed mood; Translations: [Adjustment disorder with depressed mood] Onset: 04-16-2020 Resolved: 08-09-2020 04-16-2020 Chronic Administrative/social admission (20 sources) Homeless; Translations: [Homelessness] Onset: 01-22-2021 Resolved: 08-19-2021 Episodic Disorders of lipid metabolism (20 sources) Mixed hyperlipidemia; Translations: [Mixed hyperlipidemia] Onset: 01-10-2017 Resolved: 03-28-2020 01-10-2017 Chronic Gastroduodenal ulcer (20 sources) H/O: peptic ulcer; Translations: [Personal history of peptic ulcer disease] Onset: 12-29-2017 Resolved: 03-28-2020 12-29-2017 Episodic Mood disorders (16 sources) Mood disorders Onset: 07-26-2020 07-26-2020 Nonspecific chest pain (20 sources) Chest pain; Translations: [Atypical chest pain] Onset: 12-13-2017 Resolved: 03-28-2020 12-13-2017 Episodic Osteoarthritis (20 sources) Osteoarthritis of hip; Translations: [Osteoarthritis] Onset: 12-12-2019 Resolved: 08-19-2021 12-12-2019 Chronic Other connective tissue disease (20 sources) Pain in limb - multiple; Translations: [Paresthesia of skin] Onset: 01-01-2018 Resolved: 03-28-2020 01-01-2018 Episodic Other ear and sense organ disorders (1 source) Otalgia, right ear; Translations: [Otalgia, right ear] Onset: 08-28-2024 Episodic Other injuries and conditions due to external causes (1 source) Unspecified foreign body in esophagus causing other injury, initial encounter; Translations: [Unspecified foreign body in esophagus causing other injury, initial encounter] Onset: 06-28-2024 Episodic Other injuries and conditions due to external causes (1 source) Food in esophagus causing other injury, initial encounter; Translations: [Food in esophagus causing other injury, initial encounter] Onset: 06-28-2024 Episodic Other lower respiratory disease (20 sources) Acute respiratory distress; Translations: [Acute respiratory distress] Onset: 03-28-2020 Resolved: 08-09-2020 03-28-2020 Episodic Other lower respiratory disease (1 source) Difficulty breathing; Translations: [Trouble breathing] Episodic Other lower respiratory disease (2 sources) Abnormal sputum; Translations: [Abnormal sputum] Onset: 10-25-2023 Episodic Other lower respiratory disease (2 sources) Tachypnea, not elsewhere classified; Translations: [Tachypnea, not elsewhere classified] Onset: 10-25-2023 Episodic Other lower respiratory disease (1 source) Hypoxemia; Translations: [Hypoxemia] Onset: 05-23-2024 Episodic Other lower respiratory disease (1 source) Shortness of breath; Translations: [Shortness of breath] Onset: 06-30-2024 Episodic Other male genital disorders (20 sources) Cyst of epididymis; Translations: [Cyst of epididymis] Onset: 02-24-2020 Resolved: 08-09-2020 02-24-2020 Episodic Other male genital disorders (20 sources) Disorder of male genital organ; Translations: [Hydrocele, unspecified] Onset: 06-14-2020 06-14-2020 Episodic Other non-traumatic joint disorders (20 sources) Hip pain; Translations: [Pain in right hip] Onset: 12-29-2017 12-29-2017 Episodic Other screening for suspected conditions (not mental disorders or infectious disease) (20 sources) Patient encounter status; Translations: [Encounter for screening for malignant neoplasm of respiratory organs] Onset: 10-09-2017 Resolved: 10-05-2023 10-02-2023 Episodic Pneumonia (except that caused by tuberculosis or sexually transmitted disease) (20 sources) Pneumonia; Translations: [Infective pneumonia] Onset: 04-14-2020 Resolved: 08-19-2021 04-14-2020 Episodic Residual codes; unclassified (20 sources) Tobacco use and exposure - finding; Translations: [Tobacco use] Onset: 12-29-2017 08-09-2020 Episodic Residual codes; unclassified (6 sources) History of substance abuse; Translations: [Personal history of other specified conditions] Onset: 08-09-2020 10-29-2023 Episodic Respiratory failure; insufficiency; arrest (adult) (20 sources) Acute respiratory failure; Translations: [Acute respiratory failure, unspecified whether with hypoxia or hypercapnia] Onset: 08-09-2020 Resolved: 08-19-2021 08-09-2020 Episodic Septicemia (except in labor) (20 sources) Sepsis; Translations: [Sepsis, unspecified organism] Onset: 08-09-2020 Resolved: 08-19-2021 08-09-2020 Episodic Spondylosis; intervertebral disc disorders; other back problems (20 sources) Chronic low back pain; Translations: [Lumbago with sciatica, left side] Onset: 09-23-2017 Episodic Substance-related disorders (20 sources) Substance misuse behavior; Translations: [Other psychoactive substance use, unspecified, uncomplicated] Onset: 04-16-2020 Resolved: 08-09-2020 08-09-2020 Episodic Syncope (20 sources) Syncope; Translations: [Syncope and collapse] Onset: 11-02-2019 Resolved: 03-28-2020 11-02-2019 Episodic Transient cerebral ischemia (20 sources) Transient cerebral ischemia; Translations: [Transient cerebral ischemic attack, unspecified] Onset: 01-10-2017 Resolved: 03-28-2020 01-10-2017 Chronic Unclassified (1 source) Paresthesia and pain of both upper extremities Results Test Name Value Interpretation Reference Range Facility Radiation Therapy - unverifi ed data imported from [facility] 04-13-2025 Course ID C1 Feb 2025 [facility] Course Intent Curative [facility] Course Start Date [id number] [facility] Elapsed Days 3 [facility] First Treatment Date 04/10/2025 1:23 PM [facility] Fractions Treated to Date 4 [facility] Last Treatment Date 04/13/2025 10:45 AM [facility] Plan Name Prostate [facility] Plan Primary Reference Point Prostate [facility] Prescribed Dose per Fraction (cGy) 250 [facility] Prescription Dose (cGy) 7000 [facility] Reference Point Prostate [facility] h Session Dosage Given (cGy) 250 [facility] Total Dose to Date (cGy) 1000 [facility] Total Fractions Prescribed 28 [facility] Duplex ultrasound of carotid artery reportOrdered By: Elijah Stevens on 03-06-2025 Study report [facility] Cardiovascular Services [address] [place] [address] Carotid Duplex Ultrasound 03/03/25 1013 MR#: [id number] Acct: [id number] Name: WOLF TURCIOS Jr. Rep #:[id number] : 1960 64 From: Elijah Brewster Attending Dr: Dr. George Amaro MD Status: REG CLI Ordering Dr: George Amaro MD Date: Location: [facility] Sex: M C Admitted: Reason For Study Reason For Study: Carotid stenosis Rt. Velocities/BP Lt. Velocities/BP Prox CCA 57.9/15.4 cm/sec. Prox CCA 64.1/21.2 cm/sec. Mid CCA 44.7/17.3 cm/sec. Mid CCA 60.8/19 cm/sec. Dist CCA 46.6/14.5 cm/sec. Dist CCA 54.2/17.9 cm/sec. Prox ICA 84.6/20.6 cm/sec. Prox ICA 44.3/14.6 cm/sec. Mid ICA 55.6/18.8 cm/sec. Mid ICA 48.7/19 cm/sec. Dist ICA 44.3/17.9 cm/sec. Dist ICA 50.9/21.2 cm/sec. Rt. ICA/CCA = 1.89. Lt. ICA/CCA = 0.84. Prox ECA 124.7/29.8 cm/sec. Prox ECA 82.8/22.3 cm/sec. Rt. Vert. 38.8/12.4 cm/sec. Lt. Vert. 27.3/10.7 cm/sec. Right Extracranial There is homogeneous, smooth atherosclerotic plaque noted in the right common carotid artery. There is heterogeneous, irregular atherosclerotic plaque noted in the right internal carotid artery. There is heterogeneous, irregular atherosclerotic plaque noted in the right external carotid artery. Antegrade flow is noted in the right vertebral artery. Left Extracranial There is homogeneous, smooth atherosclerotic plaque noted in the left common carotid artery. There is homogeneous, smooth atherosclerotic plaque noted in the left internal carotid artery. There is intimal thickening but no significant atherosclerotic plaque noted in the left external carotid artery. Antegrade flowis noted in the left vertebral artery. Procedure Carotid Duplex 32416. This is a Carotid Duplex examination using B-mode, color flow and specral Doppler. Exam performed in department. VL/Carotid Duplex Ultrasound Interpretation Summary Mild (<50%) stenosis right extracranial internal carotid. Mild (<50%) stenosis left extracranial internal carotid. Patent and antegrade vertebrals bilaterally. ___ Ordering Physician: George Amaro Referring Physician: Iker Blackwell Performed By: Christina Felix RVT 03/06/25730 Date _ Elijah Stevens MD CC: Dr. George Amaro MD; Dr. 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 [address] Carotid Duplex Ultrasound 03/03/25 1013 MR#: [id number] Acct: [id number] Name: WOLF TURCIOS Jr. Rep #: [id number] : 1960 64 From: Elijah Stevens MD Attending Dr: Dr. George Amaro MD Status: REG CLI Ordering Dr: George Amaro MD Date: 03/03/25 Location: [facility] Sex: M C Admitted: Reason For Study Reason For Study: Carotid stenosis Rt. Velocities/BP Lt. Velocities/BP Prox CCA 57.9/15.4 cm/sec. Prox CCA 64.1/21.2 cm/sec. Mid CCA 44.7/17.3 cm/sec. Mid CCA 60.8/19 cm/sec. Dist CCA 46.6/14.5 cm/sec. Dist CCA 54.2/17.9 cm/sec. Prox ICA 84.6/20.6 cm/sec. Prox ICA 44.3/14.6 cm/sec. Mid ICA 55.6/18.8 cm/sec. Mid ICA 48.7/19 cm/sec. Dist ICA 44.3/17.9 cm/sec. Dist ICA 50.9/21.2 cm/sec. Rt. ICA/CCA = 1.89. Lt. ICA/CCA = 0.84. Prox ECA 124.7/29.8 cm/sec. Prox ECA 82.8/22.3 cm/sec. Rt. Vert. 38.8/12.4 cm/sec. Lt. Vert. 27.3/10.7 cm/sec. Right Extracranial There is homogeneous, smooth atherosclerotic plaque noted in the right common carotid artery. There is heterogeneous, irregular atherosclerotic plaque noted in the right internal carotid artery. There is heterogeneous, irregular atherosclerotic plaque noted in the right external carotid artery. Antegrade flow is noted in the right vertebral artery. Left Extracranial There is homogeneous, smooth atherosclerotic plaque noted in the left common carotid artery. There is homogeneous, smooth atherosclerotic plaque noted in the left internal carotid artery. There is intimal thickening but no significant atherosclerotic plaque noted in the left external carotid artery. Antegrade flow is noted in the left vertebral artery. Procedure Carotid Duplex 74045. This is a Carotid Duplex examination using B-mode, color flow and specral Doppler. Exam performed in department. VL/Carotid Duplex Ultrasound Interpretation Summary Mild (<50%) stenosis right extracranial internal carotid. Mild (<50%) stenosis left extracranial internal carotid. Patent and antegrade vertebrals bilaterally. ___ Ordering Physician: George Amaro Referring Physician: Iker Blackwell Performed By: Christina Felix RVT 03/06/25730 Date Elijah Stevens MD CC: Dr. George Amaro MD; Dr. 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 PSA> 3.0 ng/ml is positive regardless of age . PSA normal values are based upon a patient with a normal Digital Rectal Exam (SCOTT). A SCOTT suspicious for cancer at any PSA level is an indication for biopsy. . Any serum PSA level in a patient previously treated for prostate cancer should be interpreted with caution. Assay performed by [facility], Electrochemiluminescence Immunoassay. Patient results determined by assays using different instrumentation may not be comparable. Prostate specific Ag [Mass/V ol]on 02-27-2025 Interpretation and review of laboratory results Abnormal [facility] Absolute lymphocyte countOrd ered By: Werner Hogan on 02-01-2025 Lymphocytes Auto (Unsp spec) [#/Vol] 1.86 10*3/uL 0.83-4.51 [facility] Absolute neutrophil countOrd ered By: Werner Hogan on 02-01-2025 Neutrophils (Bld) [#/Vol] 6.1 10*3/uL 2.0-7.7 [facility] Activated partial thrombopla stin time (aPTT) in platelet poor plasma by coagulation aOrdered By: Werner Hogan on 02-01-2025 aPTT Coag (PPP) [Time] 28.8 s 24.1-36.2 [facility] Anion gap in Serum or Plasma Ordered By: Werner Hogan on 02-01-2025 Anion gap [Moles/Vol] 9 mmol/L 5-15 [facility] Automated lymphocyte count a s percentage of total leukocytesOrdered By: Werner Hogan on 02-01-2025 Lymphocytes/100 WBC Auto (Unsp spec) 20.2 % - [facility] BUN/creatinine ratioOrdered By: Werner Hogan on 02-01-2025 Urea nitrogen/Creatinine [Mass ratio] 10.6 mg/mg 10- [facility] Basic Metabolic Profile (BMP )on 02-01-2025 BUN/CRE 10.6 RATIO Normal - [facility] Comment on above: Performed By: #### L 500.2500, L300.3900, L100.0100, L300.4310 ####[facility] [address] [place], [address] Calcium [Mass/Vol] 8.8 mg/dL Normal 7.6-11.0 [facility] Comment on above: Performed By: #### L 500.2500, L300.3900, L100.0100, L300.4310 ####[facility] [address] [place], [address] Chloride [Moles/Vol] 102 mmol/L Normal 98-108 [facility] Comment on above: Performed By: #### L 500.2500, L300.3900, L100.0100, L300.4310 ####[facility] [address] [place], [address] CO2 [Moles/Vol] 27.5 mmol/L Normal 21.0-32.0 [facility] Comment on above: Performed By: #### L 500.2500, L300.3900, L100.0100, L300.4310 ####[facility] [address] [place], [address] Creatinine [Mass/Vol] 1.04 mg/dL Normal 0.70-1.20 [facility] Comment on above: Performed By: #### L 500.2500, L300.3900, L100.0100, L300.4310 ####[facility] [address] [place], [address] ECRCL 78.56 ml/min Normal 50-250 [facility] Comment on above: Performed By: #### L 500.2500, L300.3900, L100.0100, L300.4310 ####[facility] [address] [place], [address] GAP 9 Normal 5-15 [facility] Comment on above: Performed By: #### L 500.2500, L300.3900, L100.0100, L300.4310 ####[facility] [address] [place], [address] GFR/1.73 sq M.predicted among non-blacks MDRD (S/P/Bld) [Vol rate/Area] 80 mL/min/{1.73_m2} Normal >60 [facility] Comment on above: Result Comment: mL/m in/1.73m2 CKD-EPI Creatinine Equation (2020) Performed By: #### L 500.2500, L300.3900, L100.0100, L300.4310 ####[facility] [address] [place], [address] Glucose [Mass/Vol] 128 mg/dL High 70-99 [facility] Comment on above: Performed By: #### L 500.2500, L300.3900, L100.0100, L300.4310 ####[facility] [address] [place], [address] Potassium [Moles/Vol] 3.6 mmol/L Normal 3.3-5.1 [facility] Comment on above: Performed By: #### L 500.2500, L300.3900, L100.0100, L300.4310 ####[facility] [address] [place], [address] Sodium [Moles/Vol] 139 mmol/L Normal 133-145 [facility] Comment on above: Performed By: #### L 500.2500, L300.3900, L100.0100, L300.4310 ####[facility] [address] [place], [address] Urea nitrogen [Mass/Vol] 11 mg/dL Normal 4-19 [facility] Comment on above: Performed By: #### L 500.2500, L300.3900, L100.0100, L300.4310 ####[facility] [address] [place], [address] Basophil percentageOrdered B y: Werner Cecy on 02-01-2025 Basophils/100 WBC (Bld) 0.8 % 0-1 [facility] CBC W/Diff, Automatedon 01-07 Absolute Lymph 1.86 X10 3/uL Normal 0.83-4.51 [facility] Comment on above: Performed By: #### L 500.2500, L300.3900, L100.0100, L300.4310 ####[facility] [address] [place], [address] Absolute Neut 6.1 X10 3/uL Normal 2.0-7.7 [facility] Comment on above: Performed By: #### L 500.2500, L300.3900, L100.0100, L300.4310 ####[facility] [address] [place], [address] Basophils/100 WBC (Bld) 0.8 % Normal 0-1 [facility] Comment on above: Performed By: #### L 500.2500, L300.3900, L100.0100, L300.4310 ####[facility] [address] [place], [address] Eosinophils/100 WBC (Bld) 2.8 % Normal 0-5 [facility] Comment on above: Performed By: #### L 500.2500, L300.3900, L100.0100, L300.4310 ####[facility] [address] [place], [address] Erythrocyte distribution width (RBC) [Ratio] 12.9 % Normal 11.6-14.6 [facility] Comment on above: Performed By: #### L 500.2500, L300.3900, L100.0100, L300.4310 ####[facility] [address] [place], [address] Hematocrit (Bld) [Volume fraction] 44.0 % Normal 40-54 [facility] Comment on above: Performed By: #### L 500.2500, L300.3900, L100.0100, L300.4310 ####[facility] [address] [place], [address] Hemoglobin (Bld) [Mass/Vol] 15.0 g/dL Normal 13.0-16.5 [facility] Comment on above: Performed By: #### L 500.2500, L300.3900, L100.0100, L300.4310 ####[facility] [address] [place], [address] IG% 0.300 Normal 0.0-0.9 [facility] Comment on above: Result Comment: IG% - Immature Granulocytes (promyelocytes, myelocytes and metamyelocytes) > 1% indicates that a LEFT SHIFT is Present. Performed By: #### L 500.2500, L300.3900, L100.0100, L300.4310 ####[facility] [address] [place], [address] Lymphocytes/100 WBC (Bld) 20.2 % Normal 19-41 [facility] Comment on above: Performed By: #### L 500.2500, L300.3900, L100.0100, L300.4310 ####[facility] [address] [place], [address] MCH (RBC) [Entitic mass] 31.1 pg Normal 27.0-32.0 [facility] Comment on above: Performed By: #### L 500.2500, L300.3900, L100.0100, L300.4310 ####[facility] [address] [place], [address] MCHC (RBC) [Mass/Vol] 34.1 g/dL Normal 32-36 [facility] Comment on above: Performed By: #### L 500.2500, L300.3900, L100.0100, L300.4310 ####[facility] [address] [place], [address] MCV (RBC) [Entitic vol] 91.3 fL Normal 80-94 [facility] Comment on above: Performed By: #### L 500.2500, L300.3900, L100.0100, L300.4310 ####[facility] [address] [place], [address] Monocytes/100 WBC (Bld) 10.1 % High 0-10 [facility] Comment on above: Performed By: #### L 500.2500, L300.3900, L100.0100, L300.4310 ####[facility] [address] [place], [address] Neutrophils/100 WBC (Bld) 65.8 % Normal 47-70 [facility] Comment on above: Performed By: #### L 500.2500, L300.3900, L100.0100, L300.4310 ####[facility] [address] [place], [address] Nucleated RBC (Bld) [#/Vol] 0 10*3/uL Normal 0-5 [facility] Comment on above: Performed By: #### L 500.2500, L300.3900, L100.0100, L300.4310 ####[facility] [address] [place], [address] Platelet mean volume (Bld) [Entitic vol] 9.6 fL Normal 6.2-12.0 [facility] Comment on above: Performed By: #### L 500.2500, L300.3900, L100.0100, L300.4310 ####[facility] [address] [place], [address] Platelets (Bld) [#/Vol] 241 10*3/uL Normal 150-450 [facility] Comment on above: Performed By: #### L 500.2500, L300.3900, L100.0100, L300.4310 ####[facility] [address] [place], [address] RBC (Bld) [#/Vol] 4.82 10*6/uL Normal 4.6-6.2 [facility] Comment on above: Performed By: #### L 500.2500, L300.3900, L100.0100, L300.4310 ####[facility] [address] [place], [address] RDW SD 42.8 fl Normal 35.1-43.9 [facility] Comment on above: Performed By: #### L 500.2500, L300.3900, L100.0100, L300.4310 ####[facility] [address] [place], [address] WBC (Bld) [#/Vol] 9.2 10*3/uL Normal 4.4-11.0 [facility] Company Comment on above: Performed By: #### L 500.2500, L300.3900, L100.0100, L300.4310 ####[facility] [id number] [place], [address] Carbon dioxide, total [Moles /volume] in Central venous bloodOrdered By: Werner Hogan on 02-01-2025 CO2 [Moles/Vol] 27.5 mmol/L 21.0-32.0 [facility] Chloride assayOrdered By: Jeremy Hogan on 02-01-2025 Chloride [Moles/Vol] 102 mmol/L 98-108 [facility] Emergency Department Summary on 02-01-2025 Emergency Department Summary [facility] Medical Records Department [address] [place] [address] Emergency Department Summary 02/01/25 MR#: [id number] Acct: [id number] Name: WOLF TURCIOS Jr. Rep #: [id number] : 1960 64 From: Werner Patel PCP: Dr. Iker Blackwell MD Status:DEP ER Location: ED HPI History of Present Illness Chief Complaint: Complaint Informant: patient Narrative Narrative: Brought in by EMS from home. Status post prostate biopsy today at [facility] in [place] followed by Dr. Latisha Jha. History of enlarged prostate. He is not on any blood thinners. He left around noon little over 3 hours ago. States since then 2 bloody bowel movements. He called nursing line was told to call EMS to go to ED. No lightheaded symptoms. Prior similar symptoms: No PFSH PFSH Medical History History of substance use History of alcohol abuse Smoker Emphysema lung Asthma COPD (chronic obstructive pulmonary disease) Hypertension Migraines TIA (transient ischemic attack) Adverse reaction to REEMA inhibitor drug Home Medications ???Medication ???Instructions ???Recorded ???Last Taken ???Type albuterol sulfate 90 mcg/actuation 1 - 2 puff inhalation Q4H PRN DC N 01/02/24 Unknown Rx aerosol inhaler (Ventolin HFA) Wheezing #1 ea fluticasone fur. 100 mcg-umeclid 1 ea inhalation DAILY breathing Unknown History 62.5 mcg-vilant 25 mcg inhalat.powder (Trelegy Ellipta) ipratropium 0.5 mg-albuterol 3 mg 1.5 ml inhalation Q8H PRN copd Unknown History (2.5 mg base)/3 mL nebulization soln loratadine 10 mg tablet (Allergy 10 mg PO Q24H PRN allergy symptoms 01/21/24 Unknown History Relief (loratadine)) omeprazole 20 mg capsule,delayed 20 mg PO DAILY reflux 01/21/24 Unk nown History release tamsulosin 0.4 mg capsule 0.4 mg PO DAILY prostate 01/21/24 Unknown History amlodipine 2.5 mg tablet (Norvasc) 2.5 mg PO DAILY bp #30 tabs 01/06 11/29 Unknown Rx diphenhydramine HCl 25 mg capsule 50 mg (2 x 25 mg) PO TID PRN 01/06 11/29 Unknown Rx allergic reaction #20 caps cyclobenzaprine 10 mg tablet 10 mg PO BID spasm 05/17/24 Unknow n History dextromethorphan-guaifene sin 30 1 tab PO Q12H PRN cough #14 tabs 1 07/19/23 Unknown Rx mg-600 mg tablet extended [id number] hr (Mucus DM) nystatin 100,000 unit/mL oral 500,000 unit (5 mL) PO 4X/DAY 7 Unknown Rx suspension days #140 mL amoxicillin 875 mg-potassium 1 tab PO BID #10 tabs 05/23/24 Unk nown Rx clavulanate 125 mg tablet prednisone 20 mg tablet 40 mg (2 x 20 mg) PO DAILY #10 tab s 05/23/24 Unknown Rx doxycycline hyclate 100 mg capsule 100 mg PO BID 10 days #20 caps 1 08/01/23 Unknown Rx prednisone 50 mg tablet 50 mg PO DAILY 5 days #5 tabs 12/2 4/24 Unknown Rx ondansetron 4 mg disintegrating 4 mg PO Q8H PRN PRN Nausea #10 tab s 07/05/24 Unknown Rx tablet oxycodone-acetaminophen 5 mg-325 1 tab PO Q6H PRN pain 3 days #12 0 07/05/24 Unknown Rx mg tablet (Percocet) tabs amoxicillin 875 mg-potassium 875 mg PO Q12H #20 TABLETS 5 Unknown Rx clavulanate 125 mg tablet tramadol 50 mg tablet 50 mg PO Q6H PRN PRN Pain 3 days 0 08/18/24 Unknown Rx #12 tabs docusate sodium 100 mg capsule 100 mg PO BID #60 caps 02/01/25 Un known Rx (Colace) Allergy/AdvReac Type Severity Reaction Status Date / Time lisinopril Allergy Severe Angioedema Verified 02/01/25 15:35 codeine Allergy Mild Itching Verified 02/01/25 15:35 Family History Mother Uterine cancer Father ETOH abuse Surgical History History of testicular surgery History of gastric surgery History of bilateral inguinal hernia repair History of total right hip replacement Social History household members: other details: His daugher and his grandson live with him. Smoking Status: Current some day smoker tobacco type: cigarettes how long ago did patient quit smoking: Patient prior smoked up to 2 ppd, started at age 9, down to 1 pack max/week quit status: considering quitting alcohol intake: former substance use type: former substance user ROS ROS ED Constitutional Constitutional ED: Denies chills, fever(s) or sweats ENT ENT ED: Denies sore throat Cardiovascular Cardiovascular: Denies chest pain, leg edema, palpitations or racing heartbeat Respiratory/Chest Respiratory/Chest: Denies cough, dyspnea or dyspnea on exertion Gastrointestinal Gastrointestinal: Reports other Details: Rectal bleeding ; Denies abdominal pain, diarrhea, nausea or vomiting Genitourinary Genitourinary ED: Denies dysuria, hematuria or urinary frequency Musculoskeletal (more content not included)... Normal [facility] Eosinophil percentageOrdered By: Werner Hogan on 02-01-2025 Eosinophils/100 WBC (Bld) 2.8 % 0-5 [facility] Erythrocyte distribution wid th ratioOrdered By: Werner Hogan on 02-01-2025 Erythrocyte distribution width (RBC) [Ratio] 12.9 % 11.6-14.6 [facility] Erythrocyte distribution wid th standard deviationOrdered By: Werner Hogan on 02-01-2025 Erythrocyte distribution width (RBC) [Ratio] 42.8 fl 35.1-43.9 [facility] Glomerular filtration rate ( GFR) estimation/1.73 sq m using serum, plasma, or whole bOrdered By: Werner Hogan on 02-01-2025 GFR/1.73 sq M.predicted among non-blacks MDRD (S/P/Bld) [Vol rate/Area] 80 mL/min/{1.73_m2} >60 [facility] Comment on above: mL/min/1.73m2 CKD-EP I Creatinine Equation (2020) Hematocrit Auto (Bld) [Volum e fraction]Ordered By: Werner Hogan on 02-01-2025 Hematocrit (Bld) [Volume fraction] 44.0 % 40-54 [facility] Hemoglobin measurementOrdere d By: Werner Hogan on 02-01-2025 Hemoglobin (Bld) [Mass/Vol] 15.0 g/dL 13.0-16.5 [facility] Immature granulocytes/100 WB C Auto (Bld)Ordered By: Werner Hogan on 02-01-2025 Immature granulocytes/100 WBC (Bld) 0.300 % 0.0-0.9 [facility] Comment on above: IG% - Immature Granu locytes (promyelocytes, myelocytes and metamyelocytes) > 1% indicates that a LEFT SHIFT is Present. International normalized rat io (INR) calculationOrdered By: Werner Hogan on 02-01-2025 INR Coag (Bld) [Relative time] 1.0 {INR} [facility] MCV (mean corpuscular volume ) determinationOrdered By: Werner Hogan on 02-01-2025 MCV (RBC) [Entitic vol] 91.3 fL 80-94 [facility] Mean corpuscular hemoglobin (MCH) determinationOrdered By: Werner Hogan 02-01-2025 MCH (RBC) [Entitic mass] 31.1 pg 27.0-32.0 [facility] Mean corpuscular hemoglobin concentration (MCHC) determinationOrdered By: Werner Le on 02-01-2025 MCHC (RBC) [Mass/Vol] 34.1 g/dL 32-36 [facility] Mean platelet volume determi nationOrdered By: Werner Hogan on 02-01-2025 Platelet mean volume (Bld) [Entitic vol] 9.6 fL 6.2-12.0 [facility] Monocyte percentageOrdered B y: Werner Le on 02-01-2025 Monocytes/100 WBC (Bld) 10.1 % High 0-10 [facility] Neutrophil percentageOrdered By: Werner Hogan on 02-01-2025 Neutrophils/100 WBC (Bld) 65.8 % 47-70 [facility] Nucleated red blood cell per centageOrdered By: Werner Hogan on 02-01-2025 Nucleated RBC/100 WBC (Bld) [Ratio] 0 % 0-5 [facility] Partial Thromboplast Timeon 02-01-2025 aPTT Coag (Bld) [Time] 28.8 s Normal 24.1-36.2 [facility] Comment on above: Performed By: #### L 500.2500, L300.3900, L100.0100, L300.4310 ####[facility] [id number] [facility]. [place], [place], [id number] Platelet countOrdered By: Jeremy Hogan on 02-01-2025 Platelets (Bld) [#/Vol] 241 10*3/uL 150-450 [facility] Potassium measurement (mass/ volume)Ordered By: Werner Hogan on 02-01-2025 Potassium (Unsp spec) [Mass/Vol] 3.6 mmol/L 3.3-5.1 [facility] Prothrombin Time w/INRon INR Coag (PPP) [Relative time] 1.0 {INR} Normal [facility] Comment on above: Performed By: #### L 500.2500, L300.3900, L100.0100, L300.4310 ####[facility] [address] [place], [address] PT Coag (PPP) [Time] 13.8 s Normal 11.7-14.9 [facility] Comment on above: Performed By: #### L 500.2500, L300.3900, L100.0100, L300.4310 ####[facility] [id number] [place], [address] Prothrombin timeOrdered By: Werner Hogan on 02-01-2025 PT Coag (PPP) [Time] 13.8 s 11.7-14.9 [facility] RBC Auto (Bld) [#/Vol]Ordere d By: Werner Hogan on 02-01-2025 RBC (Bld) [#/Vol] 4.82 10*6/uL 4.6-6.2 [facility] Serum creatinine measurement (mass/volume)Ordered By: Werner Hogan on 02-01-2025 Creatinine [Mass/Vol] 1.04 mg/dL 0.70-1.20 [facility] Serum glucose measurement (m ass/volume)Ordered By: Werner Hogan on 02-01-2025 Glucose [Mass/Vol] 128 mg/dL High 70-99 [facility] Serum or plasma calcium margie urement (mass/volume)Ordered By: Werner Hogan on 02-01-2025 Calcium [Mass/Vol] 8.8 mg/dL 7.6-11.0 [facility] Serum or plasma urea nitroge n measurement (mass/volume)Ordered By: Werner Hogan on 02-01-2025 Urea nitrogen [Mass/Vol] 11 mg/dL 4-19 [facility] Sodium levelOrdered By: Werner Hogan on 02-01-2025 Sodium [Moles/Vol] 139 mmol/L 133-145 [facility] TISSUE EXAMon 02-01-2025 TISSUE EXAM Prostate Biopsy 14-1 6 sites Surgical Pathology Report Case: [id number] Authorizing Provider: Elijah Sanchez, Collected: 02/01/2025 11:33 AM Ordering Location: [facility] Received: 02/01/2025 08:42 PM Urology Pathologist: Tameka Balderrama MD Specimen: Prostate, Needle Biopsy, Please Specify, ERICH #1 Prostate, needle core biopsy: Prostatic adenocarcinoma, 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 45% Orlando pattern 4. Cribriform growth pattern identified. at 0856 EDT Elevated PSA. Received in formalin labeled Karolina Wolf Vazquez and designated ERICH #1 are six cores, ranging from 0.8 to 1.9 cm. Cassette Summary: A1-A3-two cores each All M/3 VS/XJS/gld Gross examination performed at: [facility] - [address] [place] [address] Microscopic examination is performed. Normal [facility] Comment on above: Performed By: #### [id number] #### [facility] [address] [place] [address] Kvng William M.D. [id number] [place] Guidance for percutaneous biopsy of Prostateon 02-01-2025 Findings: SCOTT demonstrates cT1c mobile gland. US with normal margins. SV normal. Bladder neck normal. No median lobe. Vol 29 cm3 Veezeon [facility] Radiology Study observation (narrative) [facility] US PROSTATE BIOPSYon 025 US PROSTATE BIOPSY Findings: SCOTT demonstrates cT1c mobile gland. US with normal margins. SV normal. Bladder neck normal. No median lobe. Vol 29 cm3 Dictated by: ELIJAH SANCHEZ on ThuFeb 01, 2025 11:49:39 AM EDT Transcribed by: ELIJAH SANCHEZ on ThuFeb 01, 2025 11:49:39 AM EDT Finalized by: ELIJAH SANCHEZ on ThuFeb 01, 2025 11:49:39 AM EDT Normal [facility] Comment on above: Order Comment: This back office order was created through the Ultrasound Visit Navigator section. White blood cell (WBC) count Ordered By: Werner Hogan on 02-01-2025 WBC (Bld) [#/Vol] 9.2 10*3/uL 4.4-11.0 [facility] MR PROSTATE WITH AND WITHOUT CONTRASTon 01-02-2025 MR PROSTATE WITH AND WITHOUT CONTRAST EXAMINATION: MRI OF THE PROSTATE WITH AND WITHOUT CONTRAST 01/09/2022 TECHNIQUE: Multiplanar multisequence MRI of the prostate was performed without and with the administration of 15 mL Dotarem intravenous contrast. Multiparametric imaging with dynamic contrast enhanced imaging and diffusion weighted imaging was performed. Wordeo was utilized in analysis of images. COMPARISON: None. HISTORY: Elevated PSA. FINDINGS: Prostate: Measures 4.6 x 3.7 x 3.3 cm for a gland volume of 29 mL. Extending from the apex mid gland at the junction of the left peripheral and transition zones, there is marked restricted diffusion and abnormal enhancement associated with crescentic moderate T2 hypointense signal measuring 2.3 x 1.6 x 0.8 cm. Mild transition zone hyperplasia. Prostate capsule is intact. Seminal vesicles: Unremarkable. Neurovascular bundle: Unremarkable. Lymphadenopathy: No lymphadenopathy. Bladder: Not well distended. Bowel: The visualized bowel is unremarkable. Bones/Soft tissues: No suspicious osseous lesion. Degenerative changes of the lower lumbar spine. Susceptibility artifact from right hip arthroplasty. Moderate bilateral scrotal hydroceles. IMPRESSION: A PI-RADS 5 nodule at the junction of the left peripheral and transition zones extending from the apex to the mid gland measures up to 2.3 cm. Workstation ID: [id number] Dictated by: CHIDI YOU on ThuJan 05, 2025 11:39:44 AM EDT Transcribed by: CHIDI YOU on ThuJan 05, 2025 11:39:44 AM EDT Finalized by: CHIDI YOU on ThuJan 05, 2025 11:39:44 AM EDT [facility] Comment on above: Order Comment: Injur y/Trauma or Illness?:Illness/Other How long have you had these symptoms (acute/chronic)?:Unknown Reason for exam?:Elevated PSA Type of Exam?:Initial Additional signs and symptoms?:Elevated PSA Echocardiogram study reportO rdered By: Chhaya Lam on 11-26-2024 Study report [facility] Cardiovascular Services [address] [place] [address] Echo Complete 11/25/24 1414 MR#: [id number] Acct: [id number] Name: WOLF TURCIOS Jr. Rep #:[id number] : 1960 64 From: Chhaya hernandez MD Attending Dr: Dr. Iker Blackwell MD S tatus: REG CLI Ordering Dr: Iker Blackwell MD Date: Location: [facility] Sex: M C Admitted: Reason For Study Reason For Study: CHEST PAIN, ATYPICAL Procedure This was a 2D Doppler, Color Flow transthoracic echocardiogram. Exam performed in department. Left Ventricle Normal LV size. The estimated ejection fraction is 50 %. No evidence for diastolic dysfunction. There is borderline global hypokinesis of the left ventricle. Right Ventricle Normal RV size. Normal systolic function. Atria The left and right atria are normal. No doppler evidence for ASD. Mitral Valve There is no mitral valve stenosis. No mitral valve insufficiency. Tricuspid Valve There is no tricuspid stenosis. Unable to estimate RV systolic pressure due to inadequate jet, pulmonary artery pressure probably normal. Aortic Valve Trisinus/trileaflet aortic valve. There is no aortic stenosis. No aortic valve insufficiency. Pulmonic Valve There is no pulmonic valvular stenosis. No pulmonic valve insufficiency. Great Vessels Normal sized aortic root. Pericardium/Pleural No pericardial effusion. MMode/2D Measurements & Calculations LVIDd: 4.5 cm IVSd: 1.2 cm Ao root diam: 3.6 cm LVIDs: 3.8 cm LVPWd: 1.2 cm RVDd: 2.6 cm FS: 16.3 % LAV(MOD-bp): 32.9 ml LVAd ap4: 28.7 cm2 LVAd ap2: 26.1 cm2 LAV(MOD-bp) Indexed: 16.6 ml/m2 LVLd ap4: 8.3 cm LVLd ap2: 8.1 cm LAV(MOD-sp2): 31.5 ml EDV(MOD-sp4): 79.8 ml EDV(MOD-sp2): 71.3 ml LAV(MOD-sp4): 31.2 ml EDV(sp4-el): 83.7 ml EDV(sp2-el): 71.1 ml LVAs ap4: 20.4 cm2 LVAs ap2: 18.3 cm2 LVLs ap4: 7.2 cm LVLs ap2: 6.9 cm ESV(MOD-sp4): 49.9 ml ESV(MOD-sp2): 40.8 ml ESV(sp4-el): 49.0 ml ESV(sp2-el): 41.4 ml EF(MOD-sp4): 37.5 % EF(MOD-sp2): 42.9 % EF(sp4-el): 41.4 % SV(MOD-sp4): 29.9 ml SV(MOD-sp2): 30.6 ml SV(sp4-el): 34.6 ml SI(MOD-sp4): 15.1 ml/m2 SI(MOD-sp2): 15.4 ml/m2 LA A4 area: 12.9 cm2 LA dimension(2D): 3.5 cm RA A4 area: 11.3 cm2 TAPSE: 1.7 cm Time Measurements MV dec time: 0.03 sec Doppler Measurements & Calculations MV E max roberta: 54.6 cm/sec Lat Peak E' Roberta: 5.2 cm/sec Med Peak E' Roberta: 7.9 cm/sec MV A max roberta: 113.3 cm/sec E/E' lat: 10.6 E/E' med: 7.0 MV E/A: 0.48 MV V2 max: 126.0 cm/sec Ao V2 max: 120.5 cm/sec LV V1 max: 101.0 cm/sec MV max P.3 mmHg Ao max P.8 mmHg LV V1 max P.1 mmHg MV V2 mean: 71.8 cm/sec Ao V2 mean: 93.3 cm/sec LV V1 mean P.2 mmHg MV mean P.5 mmHg Ao mean P.7 mmHg LV V1 mean: 70.4 cm/sec MV V2 VTI: 17.3 cm Ao V2 VTI: 18.5 cm LV V1 VTI: 14.3 cm AV (velocity ratio): 0.77 PA V2 max: 85.5 cm/sec PA V2 mean: 62.6 cm/sec ECHO/Echo Complete Interpretation Summary The estimated ejection fraction is 50 %. There is borderline global hypokinesis of the left ventricle. No evidence for diastolic dysfunction. ___ Ordering Physician: Iker Blackwell Referring Physician: Iker Blackwell Performed By: Nasra Hdez, RDCS, RVT 11/26/24 1640 Date _ Chhaya Lam MD CC: Dr. 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 Iker Blackwell MD Status: REG C Ordering Dr: Iker Blackwell MD Date: 11/25/24 Location: [facility] Sex: M C Admitted: Reason For Study Reason For Study: CHEST PAIN, ATYPICAL Procedure This was a 2D Doppler, Color Flow transthoracic echocardiogram. Exam performed in department. Left Ventricle Normal LV size. The estimated ejection fraction is 50 %. No evidence for diastolic dysfunction. There is borderline global hypokinesis of the left ventricle. Right Ventricle Normal RV size. Normal systolic function. Atria The left and right atria are normal. No doppler evidence for ASD. Mitral Valve There is no mitral valve stenosis. No mitral valve insufficiency. Tricuspid Valve There is no tricuspid stenosis. Unable to estimate RV systolic pressure due to inadequate jet, pulmonary artery pressure probably normal. Aortic Valve Trisinus/trileaflet aortic valve. There is no aortic stenosis. No aortic valve insufficiency. Pulmonic Valve There is no pulmonic valvular stenosis. No pulmonic valve insufficiency. Great Vessels Normal sized aortic root. Pericardium/Pleural No pericardial effusion. MMode/2D Measurements Calculations LVIDd: 4.5 cm IVSd: 1.2 cm Ao root diam: 3.6 cm LVIDs: 3.8 cm LVPWd: 1.2 cm RVDd: 2.6 cm FS: 16.3 % LAV(MOD-bp): 32.9 ml LVAd ap4: 28.7 cm2 LVAd ap2: 26.1 cm2 LAV(MOD-bp) Indexed: 16.6 ml/m2 LVLd ap4: 8.3 cm LVLd ap2: 8.1 cm LAV(MOD-sp2): 31.5 ml EDV(MOD-sp4): 79.8 ml EDV(MOD-sp2): 71.3 ml LAV(MOD-sp4): 31.2 ml EDV(sp4-el): 83.7 ml EDV(sp2-el): 71.1 ml LVAs ap4: 20.4 cm2 LVAs ap2: 18.3 cm2 LVLs ap4: 7.2 cm LVLs ap2: 6.9 cm ESV(MOD-sp4): 49.9 ml ESV(MOD-sp2): 40.8 ml ESV(sp4-el): 49.0 ml ESV(sp2-el): 41.4 ml EF(MOD-sp4): 37.5 % EF(MOD-sp2): 42.9 % EF(sp4-el): 41.4 % SV(MOD-sp4): 29.9 ml SV(MOD-sp2): 30.6 ml SV(sp4-el): 34.6 ml SI(MOD-sp4): 15.1 ml/m2 SI(MOD-sp2): 15.4 ml/m2 LA A4 area: 12.9 cm2 LA dimension(2D): 3.5 cm RA A4 area: 11.3 cm2 TAPSE: 1.7 cm Time Measurements MV dec time: 0.03 sec Doppler Measurements Calculations MV E max roberta: 54.6 cm/sec Lat Peak E' Roberta: 5.2 cm/sec Med Peak E' Roberta: 7.9 cm/sec MV A max roberta: 113.3 cm/sec E/E' lat: 10.6 E/E' med: 7.0 MV E/A: 0.48 MV V2 max: 126.0 cm/sec Ao V2 max: 120.5 cm/sec LV V1 max: 101.0 cm/sec MV max P.3 mmHg Ao max P.8 mmHg LV V1 max P.1 mmHg MV V2 mean: 71.8 cm/sec Ao V2 mean: 93.3 cm/sec LV V1 mean P.2 mmHg MV mean P.5 mmHg Ao mean P.7 mmHg LV V1 mean: 70.4 cm/sec MV V2 VTI: 17.3 cm Ao V2 VTI: 18.5 cm LV V1 VTI: 14.3 cm AV (velocity ratio): 0.77 PA V2 max: 85.5 cm/sec PA V2 mean: 62.6 cm/sec ECHO/Echo Complete Interpretation Summary The estimated ejection fraction is 50 %. There is borderline global hypokinesis of the left ventricle. No evidence for diastolic dysfunction. ___ Ordering Physician: Iker Blackwell Referring Physician: Iker Blackwell Performed By: Nasra Hdez RDCS, RVT 11/26/24 1640 Date Chhaya Lam MD CC: Dr. Iker Blackwell MD Date Dictated: 11/25/24 1414 Date Transcribed: 11/26/24 1640 Early Childhood Teacher: Signed Normal [facility] PSA Total+%Freeon 11-24-2024 PSA, FREE 1.02 ng/mL Normal N/A [facility] Comment on above: Result Comment: Roch e ECLIA methodology. Performed By: #### L 3110.0500 #### [facility] [address] [place], [address] PSA, FREE % 11.6 Normal . [facility] Comment on above: Result Comment: The table below lists the probability of prostate cancer for men with non-suspicious SCOTT results and total PSA between 4 and 10 ng/mL, by patient age (Archie et al, MICHAEL 1998, 279:1542). % Free PSA 50-64 yr 65-75 yr 0.00-10.00% 56% 55% 10.01-15.00% 24% 35% 15.01-20.00% 17% 23% 20.01-25.00% 10% 20% >25.00% 5% 9% Please note: Archie et al did not make specific recommendations regarding the use of percent free PSA for any other population of men. Performed at: [facility] [address] [place] [id number] Offensive Coordinator: Stewart Garzon PhD, Phone: [phone] Performed By: #### L 3110.0500 #### [facility] [address] [place], [address] PSA, TOTAL ULTR 8.800 ng/mL Abnormal 0.000-4.000 [facility] Comment on above: Result Comment: Roch e ECLIA methodology. According to the [place] [employer], Serum PSA should decrease and remain at undetectable levels after radical prostatectomy. The AUA defines biochemical recurrence as an initial PSA value 0.200 ng/mL or greater followed by a subsequent confirmatory PSA value 0.200 ng/mL or greater. Values obtained with different assay methods or kits cannot be used interchangeably. Results cannot be interpreted as absolute evidence of the presence or absence of malignant disease. Performed By: #### L 3110.0500 #### [facility] [address] [place], [address] Serum or plasma free prostat e specific antigen (PSA)/total PSA mass ratioon 11-23-2024 Free PSA/Total PSA [Mass fraction] 11.6 % . [facility] Comment on above: The table below list s the probability of prostate cancer formen with non-suspicious SCOTT results and total PSA between4 and 10 ng/mL, by patient age (Archie et al, MICHAEL 1998,279:1542). % Free PSA 50-64 yr 65-75 yr 0.00-10.00% 56% 55% 10.01-15.00% 24% 35% 15.01-20.00% 17% 23% 20.01-25.00% 10% 20% >25.00% 5% 9%Please note: Archie et al did not make specific recommendations regarding the use of percent free PSA for any other population of men.Performed at: [facility] [address] [id number] Director: Stewart Garzon PhD, Phone: [phone] Measure post void residualon 10-28-2024 Measure Post Void Residual 125ml [facility] POC Urinalysis Dipstick, Aut oon 10-28-2024 Bilirubin Ql (U) Negative Negative [facility] Glucose Ql (U) Negative Normal, Negative mg/dL [facility] Hemoglobin Ql (U) Negative Negative [facility] Ketones Ql (U) Negative Negative mg/dL [facility] Leukocyte esterase Test strip Ql (U) Negative Negative [facility] Nitrite Ql (U) Negative Negative [facility] pH (U) 5.5 [pH] 5.0 - 7.0 [facility] Protein Ql (U) Negative Negative mg/dL [facility] Specific gravity (U) [Rel density] 1.01 1.005 - 1.025 [facility] Urobilinogen Qn (U) 0.2 mg/dL <2.0, 0. 2, Normal, Negative, 1.0, 2.0, <1.0 [facility] Testicular with Arterial Demetrio won 09-21-2024 Testicular with Arterial Flow [facility] Imaging Services [address] [place], [place] [id number] Testicular with Arterial Flow MR#: [id number] Acct: [id number] Name: WOLF TURCIOS Jr. Rep #: [id number] : 1960 M 64 From: Teresa Mc MD PCP: Dr. Iker Blackwell MD Status: REG CLI Study: Testicular with Arterial Flow Date of Exam: Exam# [id number] Ordering Dr: Iker Blackwell MD PROCEDURE: TESTICULAR WITH ARTERIAL FLOW 09/21/2024 REASON FOR EXAM: PAIN TECHNIQUE: Lee scale imaging of the scrotal contents. FINDINGS: RIGHT testicle: Measures 4.7 x 3.4 x 2.3 cm Right epididymis: Measures 1.4 x 1.5 x 0.8 cm Right epididymal cysts measuring 0.5 x 0.6 x 0.3 cm LEFT testicle: Measures 4.5 x 2.9 x 2.8 cm Left epididymis: Measures 1.7 x 1.5 x 1.2 cm Left epididymal cyst measuring 0.8 x 0.7 x 0.4 cm. The testicles appear symmetric and isoechoic with bilateral arterial and venous flow seen. Bilateral wdwp-sy-nwlcczmt appearing hydroceles are noted measuring approximately 4.3 x 5.3 x 2 cm on the right and 5.3 x 3.3 x 2.7 cm on the left. US/Testicular with Arterial Flow IMPRESSION: The testicles appear symmetric and isoechoic with bilateral arterial and venous flow seen. Bilateral xmof-ls-zxgbreii appearing hydroceles are noted measuring approximately 4.3 x 5.3 x 2 cm on the right and 5.3 x 3.3 x 2.7 cm on the left. Reading Location: [facility] CC: Dr. Iker Blackwell MD Early Childhood Teacher: Signed [facility] Emergency Department Summary on 08-18-2024 Emergency Department Summary [facility] Medical Records Department [address] [place] [address] Emergency Department Summary 08/18/24 MR#: [id number] Acct: [id number] Name: WOLF TURCIOS Jr. Rep #: [id number] : 1960 64 From: Elijah Simpson DO PCP: Dr. Iker Blackwell MD Status:DEP ER Location: ED HPI HPI - URI History of Present Illness Chief Complaint: Ear Problem Informant: patient Onset/Context/Timing Onset: Weeks (1) Context: Gradual Onset Timing: Continuous Quality: Sharp Location: Right ear and right upper gums Worsened by: - (Nothing) Relieved by: - (Nothing) Associated Symptoms Associated Symptoms: Positive for Headache, Sinus Pressure, Shortness of Breath and Productive Cough; Negative for Nasal Congestion, Myalgias, Nausea, Vomiting, Diarrhea, Chest Pain, Nonproductive cough or Hemoptysis Narrative Narrative: Patient presents with right ear pain and right upper mouth pain that has been getting worse over the past week. Patient states he had dental extraction several years ago but the gum never closed over the extraction site. Patient states he gets frequent infections because of this. Patient describes his pain as sharp. Patient states it is constant. Patient states that it is in the right ear and right upper gums. Patient also admits to some pain over his right maxilla. Patient states nothing makes it better nothing makes it worse. Patient admits to occasional cough with green sputum. Patient admits to some shortness of breath but has a history of COPD. ROS ROS ED Constitutional Constitutional ED: Denies chills or fever(s) Eyes Eyes: Denies blurry vision or change in vision ENT ENT ED: Reports ear pain right; Denies rhinorrhea or sore throat Cardiovascular Cardiovascular: Denies chest pain or palpitations Respiratory/Chest Respiratory/Chest: Reports cough and dyspnea Gastrointestinal Gastrointestinal: Denies nausea or vomiting Genitourinary Genitourinary ED: Denies dysuria or hematuria Musculoskeletal Musculoskeletal: Reports neck pain; Denies back pain Integumentary Denies abscess or rash Neurologic Neurologic: Reports headache(s); Denies weakness Allergic/Immunologic Allergic/Immunologic ED: Denies mouth swelling or urticaria PFSH PFS Medical History History of substance use History of alcohol abuse Smoker Emphysema lung Asthma COPD (chronic obstructive pulmonary disease) Hypertension Migraines TIA (transient ischemic attack) Adverse reaction to REEMA inhibitor drug Home Medications ???Medication ???Instructions ???Recorded ???Last Taken ???Type albuterol sulfate 90 mcg/actuation 1 - 2 puff inhalation Q4H PRN DC N 01/02/24 Unknown Rx aerosol inhaler (Ventolin HFA) Wheezing #1 ea fluticasone fur. 100 mcg-umeclid 1 ea inhalation DAILY breathing Unknown History 62.5 mcg-vilant 25 mcg inhalat.powder (Trelegy Ellipta) ipratropium 0.5 mg-albuterol 3 mg 1.5 ml inhalation Q8H PRN copd Unknown History (2.5 mg base)/3 mL nebulization soln loratadine 10 mg tablet (Allergy 10 mg PO Q24H PRN allergy symptoms 01/21/24 Unknown History Relief (loratadine)) omeprazole 20 mg capsule,delayed 20 mg PO DAILY reflux 01/21/24 Unk nown History release tamsulosin 0.4 mg capsule 0.4 mg PO DAILY prostate 01/21/24 Unknown History amlodipine 2.5 mg tablet (Norvasc) 2.5 mg PO DAILY bp #30 tabs 01/06 11/29 Unknown Rx diphenhydramine HCl 25 mg capsule 50 mg (2 x 25 mg) PO TID PRN 01/06 11/29 Unknown Rx allergic reaction #20 caps cyclobenzaprine 10 mg tablet 10 mg PO BID spasm 05/17/24 Unknow n History dextromethorphan-guaifene sin 30 1 tab PO Q12H PRN cough #14 tabs 1 07/19/23 Unknown Rx mg-600 mg tablet extended cunhakp22 hr (Mucus DM) nystatin 100,000 unit/mL oral 500,000 unit (5 mL) PO 4X/DAY 7 Unknown Rx suspension days #140 mL amoxicillin 875 mg-potassium 1 tab PO BID #10 tabs 05/23/24 Unk nown Rx clavulanate 125 mg tablet prednisone 20 mg tablet 40 mg (2 x 20 mg) PO DAILY #10 tab s 05/23/24 Unknown Rx doxycycline hyclate 100 mg capsule 100 mg PO BID 10 days #20 caps 1 08/01/23 Unknown Rx prednisone 50 mg tablet 50 mg PO DAILY 5 days #5 tabs 05/09 09/29 Unknown Rx ondansetron 4 mg disintegrating 4 mg PO Q8H PRN PRN Nausea #10 tab s 07/05/24 Unknown Rx tablet oxycodone-acetaminophen 5 mg-325 1 tab PO Q6H PRN pain 3 days #12 0 07/05/24 Unknown Rx mg tablet (Percocet) tabs amoxicillin 875 mg-potassium 875 mg PO Q12H #20 TABLETS 5 Unknown Rx clavulanate 125 mg tablet tramadol 50 mg tablet 50 mg PO Q6H PRN PRN Pain 3 days 0 08/18/24 Unknown Rx #12 tabs Allergy/AdvReac Type Severity Reaction Status Date / Time lisinopril Allergy Severe Angioedema Verified 08/18 (more content not included)... [facility] Cardiovascular stress test r eportOrdered By: Eron Enrique on 08-10-2024 Study report [facility] Cardiovascular Services [address] [place] [address] MR#: [id number] Acct: [id number] Name: WOLF TURCIOS Jr. Rep #: [id number] : 1960 64 From: Eron Enrique MD Primary Care: Dr. Iker Blackwell MD Status: REG [facility] Referring Dr: Iker Blackwell MD Sex: M C Stress Test Report Date: 08/10/2024 Procedure: Pharmacologic stress nuclear imaging study Indications: Chest pain Consent: Per the patient Procedure: The patient underwent pharmacologic (Regadenoson 0.4mg ) evaluation with a peak heart rate of 105 beats per minute (67%predicted maximal heart rate) and a peak blood pressure of 138/90 mmHg. The baseline ECG demonstrated sinus rhythm. The peak pharmacologic ECG demonstrated no ischemic changes. There were no cardiac dysrhythmias pretest, during pharmacologic infusion, or recovery. There was no complaint of chest discomfort during pharmacologic infusion or recovery. The patient was injected with 11.9 millicuries of technetium 99m Cardiolite and subsequently rest SPECT Cardiolite nuclear imaging was obtained in the horizontal long, vertical long, and short axis views. The patient underwent pharmacologic (Regadenoson) evaluation. The patient was injected with 34.3 millicuries of technetium 99m Cardiolite and subsequently stress SPECT Cardiolite nuclear imaging was obtained in the horizontal long, vertical long, and short axis views. A gated Cardiolite study at peak stress was obtained. The examination was stopped secondary to completion of protocol. Rest and stress SPECT Cardiolite nuclear imaging status post realignment, normalization, and attenuation correction demonstrate no fixed or reversible perfusion defects. There is end systolic thickening and brightening. The gatedCardiolite study demonstrates myocardial thickening and inward wall motion. Thereported LVEF is 52%. Impression: 1. Pharmacologic (Regadenoson) evaluation 2. Peak pharmacologic ECG with no ischemic changes. 3. There were no cardiac dysrhythmias pretest, during pharmacologic infusion, or recovery. 5. Rest and stress SPECT Cardiolite nuclear imaging demonstrate relative uniform tracer uptake and myocardial perfusion appearing within normal limits. 6. The gated Cardiolite study reports an LVEF of 52%. This note was generated with [employer] software. It may contain incorrectwords, spelling, and punctuation that were not noted in checking the note beforesigning. 08/10/2446 Date _ Eron Enrique MD CC: Dr. Iker Blackwell MD ~ Date Dictated: 08/10/24943 Date Transcribed: 08/10/24943 Early Childhood Teacher: TRUMAN [facility] Work Phone: Stress Reporton 08-10-2024 Stress Report [facility] Cardiovascular Services [address] [place], [place] [address] MR#: [id number] Acct: [id number] Name: WOLF TURCIOS Jr. Rep #: [id number] : 1960 64 From: Eron Enrique MD Primary Care: Dr. Iker Blackwell MD Status: REG CLI Referring Dr: Iker Blackwell MD Sex: M C Stress Test Report Date: 08/10/2024 Procedure: Pharmacologic stress nuclear imaging study Indications: Chest pain Consent: Per the patient Procedure: The patient underwent pharmacologic (Regadenoson 0.4mg ) evaluation with a peak heart rate of 105 beats per minute (67%predicted maximal heart rate) and a peak blood pressure of 138/90 mmHg. The baseline ECG demonstrated sinus rhythm. The peak pharmacologic ECG demonstrated no ischemic changes. There were no cardiac dysrhythmias pretest, during pharmacologic infusion, or recovery. There was no complaint of chest discomfort during pharmacologic infusion or recovery. The patient was injected with 11.9 millicuries of technetium 99m Cardiolite and subsequently rest SPECT Cardiolite nuclear imaging was obtained in the horizontal long, vertical long, and short axis views. The patient underwent pharmacologic (Regadenoson) evaluation. The patient was injected with 34.3 millicuries of technetium 99m Cardiolite and subsequently stress SPECT Cardiolite nuclear imaging was obtained in the horizontal long, vertical long, and short axis views. A gated Cardiolite study at peak stress was obtained. The examination was stopped secondary to completion of protocol. Rest and stress SPECT Cardiolite nuclear imaging status post realignment, normalization, and attenuation correction demonstrate no fixed or reversible perfusion defects. There is end systolic thickening and brightening. The gated Cardiolite study demonstrates myocardial thickening and inward wall motion. The reported LVEF is 52%. Impression: 1. Pharmacologic (Regadenoson) evaluation 2. Peak pharmacologic ECG with no ischemic changes. 3. There were no cardiac dysrhythmias pretest, during pharmacologic infusion, or recovery. 5. Rest and stress SPECT Cardiolite nuclear imaging demonstrate relative uniform tracer uptake and myocardial perfusion appearing within normal limits. 6. The gated Cardiolite study reports an LVEF of 52%. This note was generated with 1,2,3 [employer] software. It may contain incorrect words, spelling, and punctuation that were not noted in checking the note before signing. 08/10/2446 Date Eron Enrique MD CC: Dr. Iker Blackwell MD Date Dictated: 08/10/24943 Date Transcribed: 08/10/24943 Early Childhood Teacher: TRUMAN Signed [facility] Electrocardiogram reportOrde red By: Jihan Daly on 08-03-2024 EKG study [facility] Cardiovascular Services [address] [place] [address] 12 Lead EKG 08/02/24 1026 MR#: [id number] Acct: [id number] Name: WOLF TURCIOS Jr. Rep #:[id number] : 1960 64 From: Jihan solitario MD Attending Dr: Dr. Iker Blackwell MD S tatus: REG CLI Ordering Dr: Iker Blackwell MD Date: Location: PSN Sex: M C Admitted: Test Reason : ATYPICAL CHEST PAIN Blood Pressure : */* mmHG Vent. Rate : 107 BPM Atrial Rate : 107 BPM P-R Int : 156 ms QRS Dur : 90 ms QT Int : 328 ms P-R-T Axes : 82 91 22 degrees QTcB Int : 437 ms Sinus tachycardia Rightward axis Cannot rule out Anterior infarct , age undetermined Abnormal ECG Confirmed by Jihan Daly ([id number]), photo editor YENNY NUNEZ ([id number]) on 56:04:39 AM Referred By: Iker Blackwell Confirmed By: Jihan Daly 08/03/24 0604 Date _ Jihan Daly MD CC: Dr. Iker Blackwell MD ~ Signed [facility] Work Phone: 12 Lead EKGon 08-02-2024 12 Lead EKG [facility] Cardiovascular Services [address] [place] [address] 12 Lead EKG 08/02/24 1026 MR#: [id number] Acct: [id number] Name: WOLF TURCIOS JrFlorence Rep #: [id number] : 1960 64 From: Jihan Daly MD Attending Dr: Dr. Iker Blackwell MD Status: REG C LI Ordering Dr: Iker Blackwell MD Date: 08/02/24 Location: PSN Sex: M C Admitted: Test Reason : ATYPICAL CHEST PAIN Blood Pressure : */* mmHG Vent. Rate : 107 BPM Atrial Rate : 107 BPM P-R Int : 156 ms QRS Dur : 90 ms QT Int : 328 ms P-R-T Axes : 82 91 22 degrees QTcB Int : 437 ms Sinus tachycardia Rightward axis Cannot rule out Anterior infarct , age undetermined Abnormal ECG Confirmed by Jihan Daly ([id number]), photo editor YENNY NUNEZ ([id number]) on 08/03/2024 6:04:39 AM Referred By: Iker Blackwell Confirmed By: Jihan Daly 08/03/24 0604 Date Jihan Daly MD CC: Dr. Iker Blackwell MD Signed [facility] Chest PA and Lateralon 07-21 Chest PA and Lateral [facility] Imaging Services [address] [place] [address] Chest PA and Lateral MR#: [id number] Acct: [id number] Name: WOLF TURCIOS Jr. Rep #: [id number] : 1960 M 64 From: Washington Hogan MD PCP: Dr. Iker Blackwell MD Status: REG CLI Study: Chest PA and Lateral Date of Exam: 07/21/24 Exam# [id number] Ordering Dr: Iker Blackwell MD EXAM: XR Chest, 2 Views CLINICAL INDICATION: TECHNIQUE: Frontal and lateral views of the chest. COMPARISON: No relevant prior studies available. FINDINGS: LUNGS AND PLEURAL SPACES: Hyperlucent lungs. Flattening of the diaphragm. No consolidation. No pneumothorax. HEART: Unremarkable. No cardiomegaly. MEDIASTINUM: Unremarkable. Normal mediastinal contour. BONES/JOINTS: Unremarkable. No acute fracture. RAD/Chest PA and Lateral IMPRESSION: Suggestion of COPD. Reading Location: [facility] CC: Dr. Iker Blackwell MD Early Childhood Teacher: Signed [facility] Abdomen/Pelvis W IV Cont ONL Yon 07-05-2024 Abdomen/Pelvis W IV Cont ONLY [facility] Imaging Services [address] [place] [address] Abdomen/Pelvis W IV Cont ONLY MR#: [id number] Acct: [id number] Name: WOLF TURCIOS Jr. Rep #: [id number] : 1960 M 64 From: Lawanda Cui MD PCP: Dr. Iker Blackwell MD Status: REG ER Study: Abdomen/Pelvis W IV Cont ONLY Date of Exam: Exam# [id number] Ordering Dr: Dale Galdamez DO [id number] STUDY: CT ABDOMEN AND PELVIS WITH CONTRAST - URINARY TRACT REASON FOR EXAM: Male, 64 years old. Left lower quadrant abdominal pain RADIATION DOSAGE (If Supplied By Facility): CTDIvol = ( 9.76 ) mGy, DLP = ( 741.52 ) mGycm TECHNIQUE: IV 100mL Isovue-300 was administered. Transaxial images were obtained from the dome of the diaphragm to the symphysis pubis in the arterial, nephrographic and excretory phases. Multiplanar coronal and sagittal images were reformatted. The protocol utilizes one or more of the following dose reduction techniques: automated exposure control, adjustment of mA and/or kV according to patient size,and/or use of iterative reconstruction technique. COMPARISON: May 31, 2024 FINDINGS: There are emphysematous changes within the visualized lung bases. There is grossly stable left basilar atelectasis and/or scarring. This. The visualized portions of the heart are within normal limits. Normal liver. Normal gallbladder and extrahepatic biliary system. Normal spleen. Normal pancreas. Normal bilateral adrenal glands. There is a small hiatal hernia. Normal small intestine. Normal colon. The appendix is visualized and appears normal. There is diffuse atherosclerotic calcification of the abdominal aorta, without a demonstrated aneurysm. No retroperitoneal adenopathy. Normal right kidney. There is mild left-sided hydroureteronephrosis secondary to 4.1 mm calculus within the distal ureter. Normal urinary bladder. Normal abdominal wall. There is a right total hip arthroplasty in place. There are degenerative changes of the visualized thoracic and lumbar spine. CT/Abdomen/Pelvis W IV Cont ONLY IMPRESSION: Left-sided hydroureteronephrosis secondary to a 4.1 mm calculus within the distal ureter. Atherosclerosis. Emphysema. The presence of pulmonary emphysema on CT is an independent risk factor for lung cancer, recommend consideration for low-dose CT (LDCT) lung cancer screening in the future. Electronically Signed: Lawanda Cui MD at 8:11 EST , CC: Dr. Dale Galdamez DO; Dr. Iker Blackwell MD Early Childhood Teacher: Signed [facility] Absolute neutrophil countOrd ered By: Dale Galdamez on 07-05-2024 Neutrophils (Bld) [#/Vol] 3.7 10*3/uL 2.0-7.7 [facility] Albumin to globulin ratioOrd ered By: Dale Galdamez on 07-05-2024 Albumin/Globulin [Mass ratio] 1.0 {ratio} 0.9-2.4 [facility] Basophil percentageOrdered B y: Dale Galdamez on 07-05-2024 Basophils/100 WBC (Bld) 1.2 % High 0-1 [facility] Bilirubin Test strip Ql (U)O rdered By: Dale Galdamez on 07-05-2024 Bilirubin Ql (U) Negative Negative [facility] Bilirubin, totalOrdered By: Dale Galdamez on 07-05-2024 Bilirubin [Mass/Vol] 0.50 mg/dL 0.20-1.00 [facility] Comment on above: For patients on eltr ombopag therapy, use of Dimension Poth TBIL is not recommended. Blood urea nitrogen (BUN)/cr eatinine ratioOrdered By: Dale Galdamez on 07-05-2024 Urea nitrogen/Creatinine [Mass ratio] 11.4 mg/mg 10-20 [facility] CBC W/Diff, Automatedon 06-09 Absolute Lymph 1.75 X10 3/uL Normal 0.83-4.51 [facility] Comment on above: Performed By: #### L 501.2450, L100.0100, L500.4050, L503.6005 ####[facility] [address] [place], [address] Absolute Neut 3.7 X10 3/uL Normal 2.0-7.7 [facility] Comment on above: Performed By: #### L 501.2450, L100.0100, L500.4050, L503.6005 ####[facility] [address] [place], [address] Basophils/100 WBC (Bld) 1.2 % High 0-1 [facility] Comment on above: Performed By: #### L 501.2450, L100.0100, L500.4050, L503.6005 ####[facility] [address] [place], [address] Eosinophils/100 WBC (Bld) 5.1 % High 0-5 [facility] Comment on above: Performed By: #### L 501.2450, L100.0100, L500.4050, L503.6005 ####[facility] [address] [place], [address] Erythrocyte distribution width (RBC) [Ratio] 13.2 % Normal 11.6-14.6 [facility] Comment on above: Performed By: #### L 501.2450, L100.0100, L500.4050, L503.6005 ####[facility] [address] [place], [address] Hematocrit (Bld) [Volume fraction] 46.7 % Normal 40-54 [facility] Comment on above: Performed By: #### L 501.2450, L100.0100, L500.4050, L503.6005 ####[facility] [address] [place], [address] Hemoglobin (Bld) [Mass/Vol] 15.8 g/dL Normal 13.0-16.5 [facility] Comment on above: Performed By: #### L 501.2450, L100.0100, L500.4050, L503.6005 ####[facility] [address] [place], [address] IG% 0.300 Normal 0.0-0.9 [facility] Comment on above: Result Comment: IG% - Immature Granulocytes (promyelocytes, myelocytes and metamyelocytes) > 1% indicates that a LEFT SHIFT is Present. Performed By: #### L 501.2450, L100.0100, L500.4050, L503.6005 ####[facility] [address] [place], [address] Lymphocytes/100 WBC (Bld) 26.8 % Normal 19-41 [facility] Comment on above: Performed By: #### L 501.2450, L100.0100, L500.4050, L503.6005 ####[facility] [address] [place], [address] MCH (RBC) [Entitic mass] 31.3 pg Normal 27.0-32.0 [facility] Comment on above: Performed By: #### L 501.2450, L100.0100, L500.4050, L503.6005 ####[facility] [address] [place], [address] MCHC (RBC) [Mass/Vol] 33.8 g/dL Normal 32-36 [facility] Comment on above: Performed By: #### L 501.2450, L100.0100, L500.4050, L503.6005 ####[facility] [address] [place], [address] MCV (RBC) [Entitic vol] 92.5 fL Normal 80-94 [facility] Comment on above: Performed By: #### L 501.2450, L100.0100, L500.4050, L503.6005 ####[facility] [address] [place], [address] Monocytes/100 WBC (Bld) 10.3 % High 0-10 [facility] Comment on above: Performed By: #### L 501.2450, L100.0100, L500.4050, L503.6005 ####[facility] [address] [place], [address] Neutrophils/100 WBC (Bld) 56.3 % Normal 47-70 [facility] Comment on above: Performed By: #### L 501.2450, L100.0100, L500.4050, L503.6005 ####[facility] [address] [place], [address] Nucleated RBC (Bld) [#/Vol] 0 10*3/uL Normal 0-5 [facility] Comment on above: Performed By: #### L 501.2450, L100.0100, L500.4050, L503.6005 ####[facility] [address] [place], [address] Platelet mean volume (Bld) [Entitic vol] 9.7 fL Normal 6.2-12.0 [facility] Comment on above: Performed By: #### L 501.2450, L100.0100, L500.4050, L503.6005 ####[facility] [address] [place], [address] Platelets (Bld) [#/Vol] 266 10*3/uL Normal 150-450 [facility] Comment on above: Performed By: #### L 501.2450, L100.0100, L500.4050, L503.6005 ####[facility] [address] [place], [address] RBC (Bld) [#/Vol] 5.05 10*6/uL Normal 4.6-6.2 [facility] Comment on above: Performed By: #### L 501.2450, L100.0100, L500.4050, L503.6005 ####[facility] [address] [place], [address] RDW SD 44.9 fl High 35.1-43.9 [facility] Comment on above: Performed By: #### L 501.2450, L100.0100, L500.4050, L503.6005 ####[facility] [address] [place], [address] WBC (Bld) [#/Vol] 6.5 10*3/uL Normal 4.4-11.0 [facility] Comment on above: Performed By: #### L 501.2450, L100.0100, L500.4050, L503.6005 ####[facility] [address] [place], [address] Carbon dioxide measurementOr dered By: Dale Galdamez on 07-05-2024 CO2 [Moles/Vol] 30.0 mmol/L 21.0-32.0 [facility] Chloride measurementOrdered By: Dale Galdamez on 07-05-2024 Chloride [Moles/Vol] 107 mmol/L 98-107 [facility] Comprehensive Metabolic Prof ilon 07-05-2024 Albumin [Mass/Vol] 3.5 g/dL Normal 3.2-5.0 [facility] Comment on above: Performed By: #### L 501.2450, L100.0100, L500.4050, L503.6005 ####[facility] [address] [place], [address] Albumin/Globulin [Mass ratio] 1.0 {ratio} Normal 0.9-2.4 [facility] Comment on above: Performed By: #### L 501.2450, L100.0100, L500.4050, L503.6005 ####[facility] [address] [place], [address] ALK P 91 U/L Normal 45-117 [facility] Comment on above: Performed By: #### L 501.2450, L100.0100, L500.4050, L503.6005 ####[facility] [address] [place], [address] ALT [Catalytic activity/Vol] 27 U/L Normal 16-61 [facility] Comment on above: Performed By: #### L 501.2450, L100.0100, L500.4050, L503.6005 ####[facility] [address] [place], [address] AST [Catalytic activity/Vol] 24 U/L Normal 15-37 [facility] Comment on above: Result Comment: Slig ht Hemolysis, Result may be falsely increased. Performed By: #### L 501.2450, L100.0100, L500.4050, L503.6005 ####[facility] [address] [place], [address] Bilirubin [Mass/Vol] 0.50 mg/dL Normal 0.20-1.00 [facility] Comment on above: Result Comment: For patients on eltrombopag therapy, use of Dimension Poth TBIL is not recommended. Performed By: #### L 501.2450, L100.0100, L500.4050, L503.6005 ####[facility] [address] [place], [address] BUN/CRE 11.4 RATIO Normal 10-20 [facility] Comment on above: Performed By: #### L 501.2450, L100.0100, L500.4050, L503.6005 ####[facility] [address] [place], [address] CA,Total 9.1 mg/dL Normal 8.5-10.1 [facility] Comment on above: Performed By: #### L 501.2450, L100.0100, L500.4050, L503.6005 ####[facility] [address] [place], [address] Chloride [Moles/Vol] 107 mmol/L Normal 98-107 [facility] Comment on above: Performed By: #### L 501.2450, L100.0100, L500.4050, L503.6005 ####[facility] [address] [place], [address] CO2 [Moles/Vol] 30.0 mmol/L Normal 21.0-32.0 [facility] Comment on above: Performed By: #### L 501.2450, L100.0100, L500.4050, L503.6005 ####[facility] [address] [place], [address] Creatinine [Mass/Vol] 0.96 mg/dL Normal 0.70-1.30 [facility] Comment on above: Result Comment: The validity of the calculated GFR GFRAA in patients over 70 years has not been determined. Clinical correlation is essential. Performed By: #### L 501.2450, L100.0100, L500.4050, L503.6005 ####[facility] [address] [place], [address] ECRCL 83.02 ml/min Normal [facility] Comment on above: Performed By: #### L 501.2450, L100.0100, L500.4050, L503.6005 ####[facility] [address] [place], [address] EST GFR - AA 101 mL/min Normal >60 [facility] Comment on above: Result Comment: Afri can [place] GFR Calc Performed By: #### L 501.2450, L100.0100, L500.4050, L503.6005 ####[facility] [address] [place], [address] GAP 4 Low 5-15 [facility] Comment on above: Performed By: #### L 501.2450, L100.0100, L500.4050, L503.6005 ####[facility] [address] [place], [address] GFR/1.73 sq M.predicted among non-blacks MDRD (S/P/Bld) [Vol rate/Area] 84 mL/min/{1.73_m2} Normal >60 [facility] Comment on above: Result Comment: Non- GFR Calc Performed By: #### L 501.2450, L100.0100, L500.4050, L503.6005 ####[facility] [address] [place], [address] Globulin (S) [Mass/Vol] 3.6 g/dL Normal 2.2-4.2 [facility] Comment on above: Performed By: #### L 501.2450, L100.0100, L500.4050, L503.6005 ####[facility] [address] [place], [address] Glucose [Mass/Vol] 105 mg/dL Normal 74-106 [facility] Comment on above: Result Comment: Fast ing Glucose result from 100 to 125 mg/dL suggests IMPAIRED HOMEOSTASIS per A.D.A. criteria. Performed By: #### L 501.2450, L100.0100, L500.4050, L503.6005 ####[facility] [address] [place], [address] Potassium [Moles/Vol] 4.1 mmol/L Normal 3.5-5.1 [facility] Comment on above: Result Comment: Slig ht Hemolysis, Result may be falsely increased. Performed By: #### L 501.2450, L100.0100, L500.4050, L503.6005 ####[facility] [address] [place], [address] Sodium [Moles/Vol] 142 mmol/L Normal 136-145 [facility] Comment on above: Performed By: #### L 501.2450, L100.0100, L500.4050, L503.6005 ####[facility] [address] [place], [address] T PROT 7.1 g/dL Normal 6.4-8.2 [facility] Comment on above: Performed By: #### L 501.2450, L100.0100, L500.4050, L503.6005 ####[facility] [address] [place], [address] Urea nitrogen [Mass/Vol] 11 mg/dL Normal 7-18 [facility] Comment on above: Performed By: #### L 501.2450, L100.0100, L500.4050, L503.6005 ####[facility] [address] [place], [address] Emergency Department Summary on 07-05-2024 Emergency Department Summary [facility] Medical Records Department [address] [place] [address] Emergency Department Summary 07/05/24 MR#: [id number] Acct: [id number] Name: WOLF TURCIOS Rep #: [id number] : 1960 64 From: Dale Galdamez DO PCP: Dr. Iker Blackwell MD Status:REG ER Location: ED HPI History of Present Illness Chief Complaint: Other, Pain/Inj Narrative Narrative: Chief complaint and HPI: Left lower quadrant abdominal pain. 64-year-old male with past medical history of COPD on 3 L nasal cannula baseline, HTN, GERD presents for evaluation of left lower quadrant abdominal pain. Onset of pain was yesterday morning. Pain improved but then progressively worsened throughout the evening. Associated symptoms are nausea, dry heaves, constipation. Denies any fever, chills, chest pain, shortness of breath, diarrhea, dysuria. On chart review, patient had an EGD in May 2024 due to foreign body impaction of the esophagus. Patient states he had a colonoscopy about a year ago that was unremarkable however I do not have these records. Review of systems: See HPI Medications: As listed on the chart Allergies: As listed on the chart PFSH: Per chart Vital signs: As listed on the chart. Reviewed. Physical exam: Gen: A O x3 Head: Normocephalic, atraumatic Eyes: No sclera icterus, conjunctiva clear ENT: Moist mucous membranes Neck: Trachea midline, No JVD CV: RRR, no murmurs, no peripheral edema Resp: Lungs CTA BL, no w/r/c, on baseline 3 L nasal cannula GI: Abd soft, non-distended, tender to palpation in the left lower quadrant, no r/r : No CVA tenderness Musc: Full ROM, no deformity Skin: Warm, dry Neuro: Alert, oriented, grossly intact, sensation intact Psych: Cooperative, appropriate mood and affect [facility] Medical History History of substance use History of alcohol abuse Smoker Emphysema lung Asthma COPD (chronic obstructive pulmonary disease) Hypertension Migraines TIA (transient ischemic attack) Adverse reaction to REEMA inhibitor drug Home Medications ???Medication ???Instructions ???Recorded ???Last Taken ???Type albuterol sulfate 90 mcg/actuation 1 - 2 puff inhalation Q4H PRN PRN 01/02/24 Unknown Rx aerosol inhaler (Ventolin HFA) Wheezing #1 ea fluticasone fur. 100 mcg-umeclid 1 ea inhalation DAILY breathing 01/21/24 Unknown History 62.5 mcg-vilant 25 mcg inhalat.powder (Trelegy Ellipta) ipratropium 0.5 mg-albuterol 3 mg 1.5 ml inhalation Q8H PRN copd 01/21/24 Unknown History (2.5 mg base)/3 mL nebulization soln loratadine 10 mg tablet (Allergy 10 mg PO Q24H PRN allergy symptoms 01/21/24 Unknown History Relief (loratadine)) omeprazole 20 mg capsule,delayed 20 mg PO DAILY reflux 01/21/24 Unknown History release tamsulosin 0.4 mg capsule 0.4 mg PO DAILY prostate 01/21/24 Unknown History amlodipine 2.5 mg tablet (Norvasc) 2.5 mg PO DAILY bp #30 tabs 01/22/24 Unknown Rx diphenhydramine HCl 25 mg capsule 50 mg (2 x 25 mg) PO TID PRN 01/22/24 Unknown Rx allergic reaction #20 caps cyclobenzaprine 10 mg tablet 10 mg PO BID spasm 05/17/24 Unknown History dextromethorphan-guaifene sin 30 1 tab PO Q12H PRN cough #14 tabs 05/18/24 Unknown Rx mg-600 mg tablet extended [id number] hr (Mucus DM) nystatin 100,000 unit/mL oral 500,000 unit (5 mL) PO 4X/DAY 7 05/18/24 Unknown Rx suspension days #140 mL amoxicillin 875 mg-potassium 1 tab PO BID #10 tabs 05/23/24 Unknown Rx clavulanate 125 mg tablet prednisone 20 mg tablet 40 mg (2 x 20 mg) PO DAILY #10 tabs 05/23/24 Unknown Rx doxycycline hyclate 100 mg capsule 100 mg PO BID 10 days #20 caps 05/31/24 Unknown Rx prednisone 50 mg tablet 50 mg PO DAILY 5 days #5 tabs 05/31/24 Unknown Rx Allergy/AdvReac Type Severity Reaction Status Date / Time lisinopril Allergy Severe Angioedema Verified 06/02/24 17:07 codeine Allergy Mild Itching Verified 06/02/24 17:07 Family History Mother Uterine cancer Father ETOH abuse Surgical History History of testicular surgery History of gastric surgery History of bilateral inguinal hernia repair History of total right hip replacement Social History household members: other details: His daugher and his grandson live with him. Smoking Status: Current some day smoker tobacco type: cigarettes how long ago did patient quit smoking: Patient prior smoked up to 2 ppd, started at age 9, down to 1 pack max/week quit status: considering quitting alcohol intake: former substance use type: former substance user EXAM Physical Exam Const Vital Signs: 07/05/24 07:20 0 (more content not included)... Normal [facility] Eosinophil percentageOrdered By: Dale Galdamez on 07-05-2024 Eosinophils/100 WBC (Bld) 5.1 % High 0-5 [facility] Epithelial cells.squamous LM Ql (Urine sed)Ordered By: Dale Galdamez on 07-05-2024 Epithelial cells.squamous LM.HPF (Urine sed) [#/Area] 0 /[HPF] 0-5 [facility] Erythrocyte distribution wid th ratioOrdered By: Dale Galdamez on 07-05-2024 Erythrocyte distribution width (RBC) [Ratio] 13.2 % 11.6-14.6 [facility] Erythrocyte distribution wid th standard deviationOrdered By: Dale Hoffman on 07-05-2024 Erythrocyte distribution width (RBC) [Entitic vol] 44.9 fL High 35.1-43.9 [facility] Estimated glomerular filtrat ion rate (GFR) AmericanOrdered By: Dale Galdamez on 07-05-2024 Estimated GFR (MDRD) Amer 101 mL/min >60 [facility] Comment on above: GFR Calc Estimation of creatinine kehinde aranceOrdered By: Dale Galdamez on 07-05-2024 Estimated Creatinine Clearance Calc 83.02 ml/min [facility] Glomerular filtration rate ( GFR) estimationOrdered By: Dale Galdamez on 07-05-2024 Estimated GFR (MDRD) Non-Af Amer 84 mL/min >60 [facility] Comment on above: Non- GFR Calc Glucose Ql (U)Ordered By: Truman Galdamez on 07-05-2024 Urine Glucose (UA) Normal mg/dl Normal [facility] Glucose measurementOrdered B y: Dale Galdamez on 07-05-2024 Glucose [Mass/Vol] 105 mg/dL 74-106 [facility] Comment on above: Fasting Glucose resu lt from 100 to 125 mg/dL suggests IMPAIRED HOMEOSTASIS per A.D.A. criteria. Hematocrit Auto (Bld) [Volum e fraction]Ordered By: Dale Galdamez on 07-05-2024 Hematocrit (Bld) [Volume fraction] 46.7 % 40-54 [facility] Hemoglobin measurementOrdere d By: Dale Galdamez on 07-05-2024 Hemoglobin (Bld) [Mass/Vol] 15.8 g/dL 13.0-16.5 [facility] Immature granulocytes/100 WB C Auto (Bld)Ordered By: Dal[place]wood Galdamez on 07-05-2024 Immature granulocytes/100 WBC (Bld) 0.300 % 0.0-0.9 [facility] Comment on above: IG% - Immature Granu locytes (promyelocytes, myelocytes and metamyelocytes) > 1% indicates that a LEFT SHIFT is Present. Ketones Test strip Ql (U)Ord ered By: Dale Galdamez on 07-05-2024 Ketones Ql (U) Negative Negative [facility] - Chemistry and C hemistry - challengeOrdered By: Dale Galdamez on 07-05-2024 AST [Catalytic activity/Vol] 24 U/L 15-37 [facility] Comment on above: Slight Hemolysis, Re sult may be falsely increased. Lactic Acidon 07-05-2024 Lactate [Moles/Vol] 1.4 mmol/L Normal 0.4-1.9 [facility] Comment on above: Order Comment: Y Performed By: #### L 501.2450, L100.0100, L500.4050, L503.6005 ####[facility] [address] [place], [place], [id number] Lactic acid measurementOrder ed By: Dale Galdamez on 07-05-2024 Lactate [Moles/Vol] 1.4 mmol/L 0.4-2.0 [facility] Lipaseon 07-05-2024 Lipase [Catalytic activity/Vol] 19 U/L Normal 13-75 [facility] Comment on above: Result Comment: Elva acosta note: LIPASE revised reference range effective 22. New Lipase methodology. Expected to produce lower values than the previous assay method. NEW Reference Range: 13 - 75 U/L Performed By: #### L 501.2450, L100.0100, L500.4050, L503.6005 ####[facility] [address] [place], [address] Lipase measurementOrdered By : Dale Galdamez on 07-05-2024 Lipase [Catalytic activity/Vol] 19 U/L 13-75 [facility] Comment on above: Please note:LIPASE r evised reference range effective 22. New Lipase methodology. Expected to produce lower values than the previous assay method. NEW Reference Range: 13 - 75 U/L Lymphocytes Auto (Unsp spec) [#/Vol]Ordered By: Dale Galdamez on 07-05-2024 Lymphocytes (Bld) [#/Vol] 1.75 10*3/uL 0.83-4.51 [facility] Lymphocytes/100 WBC Auto (Un sp spec)Ordered By: Dale Galdamez on 07-05-2024 Lymphocytes/100 WBC (Bld) 26.8 % 19-41 [facility] MCV (mean corpuscular volume ) determinationOrdered By: Dale Galdamez on 07-05-2024 MCV (RBC) [Entitic vol] 92.5 fL 80-94 [facility] Mean corpuscular hemoglobin (MCH) determinationOrdered By: Harvard Denice on 07-05-2024 MCH (RBC) [Entitic mass] 31.3 pg 27.0-32.0 [facility] Mean corpuscular hemoglobin concentration (MCHC) determinationOrdered By: Dalelinwood Galdamez on 07-05-2024 MCHC (RBC) [Mass/Vol] 33.8 g/dL 32-36 [facility] Mean platelet volume determi nationOrdered By: Dale Galdamez on 07-05-2024 Platelet mean volume (Bld) [Entitic vol] 9.7 fL 6.2-12.0 [facility] Microscopic analysis of urin e for red blood cells (RBC)Ordered By: Dale Galdamez on 07-05-2024 Urine RBC 10-25 SEEN /hpf 0-5 [facility] Monocyte percentageOrdered B y: Dale Galdamez on 07-05-2024 Monocytes/100 WBC (Bld) 10.3 % High 0-10 [facility] Mucus LM Ql (Urine sed)Order ed By: Dale Galdamez on 07-05-2024 Mucus Ql (Urine sed) 0 SEEN /hpf [facility] Neutrophil percentageOrdered By: Dale Galdamez on 07-05-2024 Neutrophils/100 WBC (Bld) 56.3 % 47-70 [facility] Nitrite Test strip Ql (U)Ord ered By: Dale Galdamez on 07-05-2024 Nitrite Ql (U) Negative Negative [facility] Nucleated red blood cell per centageOrdered By: Dale Galdamez on 07-05-2024 Nucleated RBC/100 WBC (Bld) [Ratio] 0 % 0-5 [facility] Platelet countOrdered By: Truman Galdamez on 07-05-2024 Platelets (Bld) [#/Vol] 266 10*3/uL 150-450 [facility] Potassium measurementOrdered By: Dale Galdamez on 07-05-2024 Potassium [Moles/Vol] 4.1 mmol/L 3.5-5.1 [facility] Comment on above: Slight Hemolysis, Re sult may be falsely increased. Protein Test strip Ql (U)Ord ered By: Dale Galdamez on 07-05-2024 Protein Ql (U) 30 mg/dl High Negative [facility] RBC Auto (Bld) [#/Vol]Ordere d By: Dale Galdamez on 07-05-2024 RBC (Bld) [#/Vol] 5.05 10*6/uL 4.6-6.2 [facility] Serum anion gap measurementO rdered By: Dale Galdamez on 07-05-2024 Anion gap [Moles/Vol] 4 mmol/L Low 5-15 [facility] Serum globulin measurementOr dered By: Dale Galdamez on 07-05-2024 Globulin (S) [Mass/Vol] 3.6 g/dL 2.2-4.2 [facility] Serum or plasma alanine augustine otransferase (ALT) measurementOrdered By: Dale Galdamez on 07-05-2024 ALT [Catalytic activity/Vol] 27 U/L 16-61 [facility] Serum or plasma albumin margie urement (mass/volume)Ordered By: Dale Hoffman on 07-05-2024 Albumin [Mass/Vol] 3.5 g/dL 3.2-5.0 [facility] Serum or plasma alkaline jacobo sphatase measurementOrdered By: Dale Galdamez on 07-05-2024 ALP [Catalytic activity/Vol] 91 U/L 45-117 [facility] Serum or plasma calcium margie urement (mass/volume)Ordered By: Dale Hoffman on 07-05-2024 Calcium [Mass/Vol] 9.1 mg/dL 8.5-10.1 [facility] Serum or plasma creatinine m easurement (mass/volume)Ordered By: Dale Hoffman on 07-05-2024 Creatinine [Mass/Vol] 0.96 mg/dL 0.70-1.30 [facility] Comment on above: The validity of the calculated GFR & GFRAA in patients over 70 years has not been determined. Clinical correlation is essential. Serum or plasma urea nitroge n measurement (mass/volume)Ordered By: Dale Galdamez on 07-05-2024 Urea nitrogen [Mass/Vol] 11 mg/dL 7-18 [facility] Sodium levelOrdered By: Augustin Galdamez on 07-05-2024 Sodium [Moles/Vol] 142 mmol/L 136-145 [facility] Total proteinOrdered By: Dejuan Galdamez on 07-05-2024 Protein [Mass/Vol] 7.1 g/dL 6.4-8.2 [facility] Urinalysis, Completeon 07-05 RBC 10-25 SEEN Normal 0-5 [facility] Comment on above: Order Comment: CLEAN CATCH Performed By: #### L 400.0001 ####[facility] [address] [place], [address] WBC 0-5 SEEN Normal 0-5 [facility] Comment on above: Order Comment: CLEAN CATCH Performed By: #### L 400.0001 ####[facility] [address] [place], [address] BACTERIA 0 SEEN Normal None Seen [facility] Comment on above: Order Comment: CLEAN CATCH Performed By: #### L 400.0001 ####[facility] [address] [place], [address] EPI,SQUAMOUS 0 SEEN Normal 0-5 [facility] Comment on above: Order Comment: CLEAN CATCH Performed By: #### L 400.0001 ####[facility] [address] [place], [address] Mucus Ql (Urine sed) 0 SEEN Normal [facility] Comment on above: Order Comment: CLEAN CATCH Performed By: #### L 400.0001 ####[facility] [address] [place], [address] Urine blood detectionOrdered By: Dale Galdamez on 07-05-2024 Urine Occult Blood 150 /ul High Negative [facility] Urine clarityOrdered By: Dejuan Galdamez on 07-05-2024 Clarity (U) Clear Clear [facility] Urine color determinationOrd ered By: Dale Galdamez on 07-05-2024 Color (U) Yellow Yellow [facility] Urine leukocyte esterase det ection by dipstickOrdered By: Dale Galdamez on 07-05-2024 Leukocyte esterase Test strip Ql (U) 25 /ul High Negative [facility] Urine pHOrdered By: Dale Cristobal campoCaro on 07-05-2024 pH (U) 5.0 [pH] 5.0 - 8.0 [facility] Urine sediment bacteria coun t by microscopy (number/high power field)Ordered By: Dale Galdamez on 07-05-2024 Bacteria LM.HPF (Urine sed) [#/Area] 0 /[HPF] None Seen [facility] Urine specific gravity measu rementOrdered By: Dale CristobaljevonDalton on 07-05-2024 Specific gravity (U) [Rel density] 1.015 1.002-1.030 [facility] Urobilinogen Ql (U)Ordered B y: Dale KljevonDalton on 07-05-2024 Urobilinogen (U) [Mass/Vol] 4 mg/dL High Normal [facility] White blood cell (WBC) count Ordered By: Dale ThuyNoa on 07-05-2024 WBC (Bld) [#/Vol] 6.5 10*3/uL 4.4-11.0 [facility] White blood cell countOrdere d By: Dale Galdamez on 07-05-2024 Urine WBC 0-5 SEEN /hpf 0-5 [facility] Culture, Blood (WB)on 2023 CUB RT.IV Blood cultures x2, from two different sites No growth in 5 days. Normal [facility] Comment on above: Performed By: #### L 503.6620 #### [facility] [address] [place], [place], [id number] CUB RT.IV Blood cultures x2, from two different sites No growth in 5 days. Normal [facility] Comment on above: Performed By: #### L 503.6620 #### [facility] [address] [place], [place], [id number] EGD Reporton 06-02-2024 EGD Report [facility] Medical Records Department [address] [place] [address] EGD Report MR#: [id number] Acct: [id number] Name: WOLF TURCIOS Jr. Rep #: [id number] : 1960 64 From: Nabeel Womack MD PCP: Dr. Iker Blackwell MD Status:REG [facility] Patient Name: Wolf Turcios Procedure Date: 06/02/2024 6:49 PM Date of : 1960 Age: 64 Procedure: Upper GI endoscopy Indications: Foreign body in the esophagus Providers: Nabeel Womack MD Medicines: Propofol per Anesthesia Patient Profile: This is a 64 year old male. Refer to note in patient chart for documentation of history and physical. Complications: No immediate complications. Estimated blood loss: Minimal. Procedure: Pre-Anesthesia Assessment: - Prior to the procedure, a History and Physical was performed, and patient medications and allergies were reviewed. The patient's tolerance of previous anesthesia was also reviewed. The risks and benefits of the procedure and the sedation options and risks were discussed with the patient. All questions were answered, and informed consent was obtained. Prior Anticoagulants: The patient has taken no anticoagulant or antiplatelet agents. After reviewing the risks and benefits, the patient was deemed in satisfactory condition to undergo the procedure. After obtaining informed consent, the endoscope was passed under direct vision. Throughout the procedure, the patient's blood pressure, pulse, and oxygen saturations were monitored continuously. The Endoscope was introduced through the mouth, and advanced to the third part of duodenum. The upper GI endoscopy was accomplished without difficulty. The patient tolerated the procedure well. Scope In: 7:15:59 PM Scope Out: 7:17:01 PM Total Procedure Duration Time 0 hours 1 minute 2 seconds Findings: Food was found in the upper third of the esophagus. Removal was accomplished. Impression: - Food in the upper third of the esophagus. Removal was successful. Recommendation: - Discharge patient to home. - Resume previous diet. - Continue present medications. - Return to my office in 2 weeks. Procedure Code(s): --- Professional --- 41755, Esophagogastroduodenoscop y, flexible, transoral; with removal of foreign body(s) Diagnosis Code(s): --- Professional --- T18.128A, Food in esophagus causing other injury, initial encounter T18.108A, Unspecified foreign body in esophagus causing other injury, initial encounter CPT copyright 2021 [employer]. All rights reserved. The codes documented in this report are preliminary and upon pharmacy technology instructor review may be revised to meet current compliance requirements. Nabeel Womack MD 06/02/2024 7:25:56 PM This report has been signed electronically. Number of Addenda: 0 Note Initiated On: 06/02/2024 6:49 PM 06/02/241925 Date Nabeel Womack MD Cosigner Signature: Date (if indicated) CC: Dr. Nabeel Womack MD; Dr. Iker Blackwell MD Date Dictated: 06/02/241848 Date Transcribed: Early Childhood Teacher: LORENA Signed Normal [facility] Emergency Department Summary on 06-02-2024 Emergency Department Summary [facility] Medical Records Department [address] [place] [address] Emergency Department Summary 06/02/24 MR#: [id number] Acct: [id number] Name: WOLF TURCIOS Jr. Rep #: [id number] : 1960 64 From: Tamica MILLER PCP: Dr. Iker Blackwell MD Status:[facility] Location: [facility] HPI - GI History of Present Illness Chief Complaint: Foreign Body Narrative Narrative: Patient presenting today with concerns for esophageal foreign body. He ate a piece of steak about 30 minutes ago that got stuck in his esophagus. He reports that this has happened several times in the past and he has required multiple endoscopies to retrieve impacted food. He was told that he needs to have his, esophagus stretched but is scared to have this done so he has not yet scheduled it. He recently got new dentures but they do not fit properly so he is not wearing them and is not able to properly chew his food. He denies chest pain and shortness of breath. [facility] Medical History History of substance use History of alcohol abuse Smoker Emphysema lung Asthma COPD (chronic obstructive pulmonary disease) Hypertension Migraines TIA (transient ischemic attack) Adverse reaction to REEMA inhibitor drug Home Medications ???Medication ???Instructions ???Recorded ???Last Taken ???Type albuterol sulfate 90 mcg/actuation 1 - 2 puff inhalation Q4H PRN PRN 01/02/24 Unknown Rx aerosol inhaler (Ventolin HFA) Wheezing #1 ea fluticasone fur. 100 mcg-umeclid 1 ea inhalation DAILY breathing 01/21/24 Unknown History 62.5 mcg-vilant 25 mcg inhalat.powder (Trelegy Ellipta) ipratropium 0.5 mg-albuterol 3 mg 1.5 ml inhalation Q8H PRN copd 01/21/24 Unknown History (2.5 mg base)/3 mL nebulization soln loratadine 10 mg tablet (Allergy 10 mg PO Q24H PRN allergy symptoms 01/21/24 Unknown History Relief (loratadine)) omeprazole 20 mg capsule,delayed 20 mg PO DAILY reflux 01/21/24 Unknown History release tamsulosin 0.4 mg capsule 0.4 mg PO DAILY prostate 01/21/24 Unknown History amlodipine 2.5 mg tablet (Norvasc) 2.5 mg PO DAILY bp #30 tabs 01/22/24 Unknown Rx diphenhydramine HCl 25 mg capsule 50 mg (2 x 25 mg) PO TID PRN 01/22/24 Unknown Rx allergic reaction #20 caps cyclobenzaprine 10 mg tablet 10 mg PO BID spasm 05/17/24 Unknown History dextromethorphan-guaifene sin 30 1 tab PO Q12H PRN cough #14 tabs 05/18/24 Unknown Rx mg-600 mg tablet extended hr (Mucus DM) nystatin 100,000 unit/mL oral 500,000 unit (5 mL) PO 4X/DAY 7 05/18/24 Unknown Rx suspension days #140 mL amoxicillin 875 mg-potassium 1 tab PO BID #10 tabs 05/23/24 Unknown Rx clavulanate 125 mg tablet prednisone 20 mg tablet 40 mg (2 x 20 mg) PO DAILY #10 tabs 05/23/24 Unknown Rx doxycycline hyclate 100 mg capsule 100 mg PO BID 10 days #20 caps 05/31/24 Unknown Rx prednisone 50 mg tablet 50 mg PO DAILY 5 days #5 tabs 05/31/24 Unknown Rx Allergy/AdvReac Type Severity Reaction Status Date / Time lisinopril Allergy Severe Angioedema Verified 06/02/24 17:07 codeine Allergy Mild Itching Verified 06/02/24 17:07 Family History Mother Uterine cancer Father ETOH abuse Surgical History History of testicular surgery History of gastric surgery History of bilateral inguinal hernia repair History of total right hip replacement Social History household members: other details: His daugher and his grandson live with him. Smoking Status: Former smoker how long ago did patient quit smoking: Patient prior smoked up to 2 ppd, started at age 9, down to 1 pack max/week quit status: considering quitting alcohol intake: former substance use type: former substance user ROS ROS ED Constitutional Constitutional ED: Denies chills or fever(s) Cardiovascular Cardiovascular: Denies chest pain Respiratory/Chest Respiratory/Chest: Denies cough or dyspnea Gastrointestinal Gastrointestinal: Denies abdominal pain, nausea or vomiting Musculoskeletal Musculoskeletal: Denies arthralgias or myalgias Integumentary Denies rash Neurologic Neurologic: Denies weakness EXAM Physical Exam Const Vital Signs: 06/02/24 17:04 06/02/24 17:16 06/02/24 18:51 Temperature 98.1 F Temperature Source Oral Pulse Rate 109 H 78 Respiratory Rate 20 H 20 H Respiratory Pattern Normal Blood Pressure 148/89 H 140/93 H Blood Pressure Mean 108 108 Blood Pressure Source Monitor Blood Pressure Position Sitting Blood Pressure Location Right Arm Baseline BP Pulse Ox 97 95 Oxygen Delivery Method Nasal Cannula (more content not included)... Normal [facility] H AND P Exam - Surgicalon H&P Exam - Surgical [facility] Medical Records Department [address] [place] [address] H P Exam - Surgical 06/02/241920 MR#: [id number] Acct: [id number] Name: WOLF TURCIOS Jr. Rep #: [id number] : 1960 64 From: Nabeel Womack MD PCP: Dr. Iker Blackwell MD Status:REG [facility] Location: [place] [address] HPI - General HPI Narrative WOLF TURCIOS, is a 64 M who presents with a foreign body in his esophagus. The patient reports he was eating steak about an hour and a half ago and it got stuck. He thinks it is very high. He has had multiple EGDs in the past for removal of foreign bodies but he has never had dilation. He does not have any teeth and he does not have his dentures yet. [facility] Medical History History of substance use History of alcohol abuse Smoker Emphysema lung Asthma COPD (chronic obstructive pulmonary disease) Hypertension Migraines TIA (transient ischemic attack) Adverse reaction to REEMA inhibitor drug Home Medications ???Medication ???Instructions ???Recorded ???Last Taken ???Type albuterol sulfate 90 mcg/actuation 1 - 2 puff inhalation Q4H PRN PRN 01/02/24 Unknown Rx aerosol inhaler (Ventolin HFA) Wheezing #1 ea fluticasone fur. 100 mcg-umeclid 1 ea inhalation DAILY breathing 01/21/24 Unknown History 62.5 mcg-vilant 25 mcg inhalat.powder (Trelegy Ellipta) ipratropium 0.5 mg-albuterol 3 mg 1.5 ml inhalation Q8H PRN copd 01/21/24 Unknown History (2.5 mg base)/3 mL nebulization soln loratadine 10 mg tablet (Allergy 10 mg PO Q24H PRN allergy symptoms 01/21/24 Unknown History Relief (loratadine)) omeprazole 20 mg capsule,delayed 20 mg PO DAILY reflux 01/21/24 Unknown History release tamsulosin 0.4 mg capsule 0.4 mg PO DAILY prostate 01/21/24 Unknown History amlodipine 2.5 mg tablet (Norvasc) 2.5 mg PO DAILY bp #30 tabs 01/22/24 Unknown Rx diphenhydramine HCl 25 mg capsule 50 mg (2 x 25 mg) PO TID PRN 01/22/24 Unknown Rx allergic reaction #20 caps cyclobenzaprine 10 mg tablet 10 mg PO BID spasm 05/17/24 Unknown History dextromethorphan-guaifene sin 30 1 tab PO Q12H PRN cough #14 tabs 05/18/24 Unknown Rx mg-600 mg tablet extended verndid08 hr (Mucus DM) nystatin 100,000 unit/mL oral 500,000 unit (5 mL) PO 4X/DAY 7 05/18/24 Unknown Rx suspension days #140 mL amoxicillin 875 mg-potassium 1 tab PO BID #10 tabs 05/23/24 Unknown Rx clavulanate 125 mg tablet prednisone 20 mg tablet 40 mg (2 x 20 mg) PO DAILY #10 tabs 05/23/24 Unknown Rx doxycycline hyclate 100 mg capsule 100 mg PO BID 10 days #20 caps 05/31/24 Unknown Rx prednisone 50 mg tablet 50 mg PO DAILY 5 days #5 tabs 05/31/24 Unknown Rx Allergy/AdvReac Type Severity Reaction Status Date / Time lisinopril Allergy Severe Angioedema Verified 06/02/24 17:07 codeine Allergy Mild Itching Verified 06/02/24 17:07 Family History Mother Uterine cancer Father ETOH abuse Surgical History History of testicular surgery History of gastric surgery History of bilateral inguinal hernia repair History of total right hip replacement Social History household members: other details: His daugher and his grandson live with him. Smoking Status: Former smoker how long ago did patient quit smoking: Patient prior smoked up to 2 ppd, started at age 9, down to 1 pack max/week quit status: considering quitting alcohol intake: former substance use type: former substance user ROS Constitutional Constitutional: Denies anorexia, chills, fatigue or fever(s) Eyes Eyes: Denies blurry vision ENT HEENT: Reports dysphagia Cardiovascular Cardiovascular: Denies chest pain Respiratory/Chest Respiratory/Chest: Reports dyspnea and dyspnea on exertion; Denies cough Gastrointestinal Gastrointestinal: Denies abdominal pain Genitourinary Genitourinary: Denies change in urinary stream Musculoskeletal Musculoskeletal: Denies abnormal gait Integumentary Integumentary: Denies jaundice Vital Signs Vital Signs Vital Signs: 06/02/24 17:04 06/02/24 17:16 06/02/24 18:51 Temperature 98.1 F Temperature Source Oral Pulse Rate 109 H 78 Respiratory Rate 20 H 20 H Respiratory Pattern Normal Blood Pressure 148/89 H 140/93 H Blood Pressure Mean 108 108 Blood Pressure Source Monitor Blood Pressure Position Sitting Blood Pressure Location Right Arm Pulse Ox 97 95 Oxygen Delivery Method Nasal Cannula Nasal Cannula Oxygen Flow Rate (L/min) 3 3 06/02/24 18:53 Temperature 97.8 F Temperature Source Pulse Rate 78 Respiratory Rate 20 H Respiratory Pattern Blood Pressure (more content not included)... [facility] MR/POSTOP.ANE 06-02-2024 MR/POSTOP.[facility] Medical Records Department [address] [place] [address] Anesthesia Postop Eval I 06/02/241947 MR#: [id number] Acct: [id number] Name: WOLF TURCIOS JrFlorence Rep #: [id number] : 1960 64 From: Alexander Titus PCP: Dr. Iker Blackwell MD Status:REG [facility] Y Race: C Location: [place] [address] Anesthesia: Postop Eval I Current Vital Signs Temperature: 97.9 F Pulse Rate: 105 Blood Pressure: 134/100 Respiratory Rate: 17 Pulse Ox: 97 Assessment Airway patent: Yes Spontaneous unlabored respirations: Yes nausea: No Vomiting: No Anesthesia Complication: No Fluid Hydration Crystalloid volume administer (ml): 250 Total IV fluid infused: 250 Progress Note Anesthesia document: Postop Eval 1 completed: Yes 06/02/241948 Date Alexander Rangelignyaneli Signature: Date CC: Signed [facility] MR/[id number] 06-02-2024 MR/POSTOPAN2 [facility] Medical Records Department [address] [facility] [place] [address] Anesthesia Postop Eval II 06/02/241948 MR#: [id number] Acct: [id number] Name: WOLF TURCIOS Jr. Rep #: [id number] : 1960 64 From: Alexander Titus PCP: Dr. 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 Anesthesia Postop Eval I: Fluid Summary Crystalloid volume administer 250 06/02/24 19:48 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 Mixed Gram Pos Gram Neg Org Hill Count <1000 MIXC Mixed contaminants. Submit a new specimen if indicated. [facility] Comment on above: Performed By: #### M 100.2200, L400.0001 ####[facility] [address] [place], [address] Abdomen/Pelvis W IV Cont ONL Yon 05-31-2024 Abdomen/Pelvis W IV Cont ONLY [facility] Imaging Services [address] [place] [address] Abdomen/Pelvis W IV Cont ONLY MR#: [id number] Acct: [id number] Name: WOLF TURCIOS Jr. Rep #: [id number] : 1960 M 64 From: Quoc Carrillo MD PCP: Dr. Iker Blackwell MD Status: REG ER Study: Abdomen/Pelvis W IV Cont ONLY Date of Exam: Exam# [id number] Ordering Dr: Alcides Hanks DO [id number] EXAM: CT ABDOMEN AND PELVIS WITH INTRAVENOUS CONTRAST CLINICAL INDICATION: abd pain TECHNIQUE: Helically acquired images were obtained of the abdomen and pelvis with intravenous contrast. This CT exam was performed using one or more of the following dose reduction techniques: automated exposure control, adjustment of the mA and/or kV according to patient size, and/or use of iterative reconstruction technique. CONTRAST: IV 100mL Isovue-370 RADIATION DOSE: CTDIvol = 11.93 mGy, DLP = 1084.63 mGy-cm COMPARISON: No relevant prior studies available. FINDINGS: LOWER THORAX: Please see the separate CTA chest report. ABDOMEN: LIVER: Unremarkable. Homogeneous. No focal mass. GALLBLADDER AND BILE DUCTS: Unremarkable. No calcified gallstones. No gallbladder distention or wall edema. No intra- or extrahepatic biliary ductal dilation. PANCREAS: Unremarkable. No focal cystic or solid mass. SPLEEN: Unremarkable. Normal size without focal cystic or solid mass. ADRENALS: Unremarkable. No nodules. KIDNEYS AND URETERS: Unremarkable. Normal renal size and position. No hydronephrosis. STOMACH AND BOWEL: Unremarkable. No stomach or bowel distention. No focal inflammatory change. PELVIS: APPENDIX: The appendix is normal. BLADDER: Unremarkable. REPRODUCTIVE: Unremarkable as visualized. No mass. ABDOMEN and PELVIS: INTRAPERITONEAL SPACE: Unremarkable. No ascites or other fluid collection. No free air. BONES/JOINTS: Right hip arthroplasty. Degenerative changes of the spine. No suspicious lytic or blastic abnormality. SOFT TISSUES: Unremarkable. No discrete abdominal or pelvic wall hernia. VASCULATURE: Unremarkable. Abdominal aorta is non-dilated. LYMPH NODES: Unremarkable. No enlarged lymph nodes. CT/Abdomen/Pelvis W IV Cont ONLY IMPRESSION: No acute findings in the abdomen/pelvis. Electronically Signed: Quoc Carrillo MD at 1:02 EST , CC: Dr. Iker Blackwell MD; Dr. Alcides Hanks DO Early Childhood Teacher: Signed Normal [facility] Amorphous sediment detection in urine sediment by light microscopyOrdered By: Alcides Hanks on 05-31-2024 Amorphous sediment LM Ql (Urine sed) 2+ [facility] BNP,B-Type NATRIURETIC PEPTI Enrike 05-31-2024 Natriuretic peptide B (Bld) [Mass/Vol] 11.7 pg/mL Normal 0-100 [facility] Comment on above: Performed By: #### L 503.6620 #### [facility] [address] [place], [address] Basic Metabolic Profile (BMP )on 05-31-2024 BUN/CRE 17.5 RATIO Normal 10-20 [facility] Comment on above: Order Comment: 'TROP ' Serial specimen #1, #2 or #3: 1 Performed By: #### L 500.2500, L100.0100, L501.4020 #### [facility] [address] [place], [address] CA,Total 8.6 mg/dL Normal 8.5-10.1 [facility] Comment on above: Order Comment: 'TROP ' Serial specimen #1, #2 or #3: 1 Performed By: #### L 500.2500, L100.0100, L501.4020 #### [facility] [address] [place], [address] Chloride [Moles/Vol] 101 mmol/L Normal 98-107 [facility] Comment on above: Order Comment: 'TROP ' Serial specimen #1, #2 or #3: 1 Performed By: #### L 500.2500, L100.0100, L501.4020 #### [facility] [address] [place], [address] CO2 [Moles/Vol] 36.0 mmol/L High 21.0-32.0 [facility] Comment on above: Order Comment: 'TROP ' Serial specimen #1, #2 or #3: 1 Performed By: #### L 500.2500, L100.0100, L501.4020 #### [facility] [address] [place], [address] Creatinine [Mass/Vol] 0.91 mg/dL Normal 0.70-1.30 [facility] Comment on above: Order Comment: 'TROP ' Serial specimen #1, #2 or #3: 1 Result Comment: The validity of the calculated GFR GFRAA in patients over 70 years has not been determined. Clinical correlation is essential. Performed By: #### L 500.2500, L100.0100, L501.4020 #### [facility] [address] [place], [address] ECRCL 82.70 ml/min Normal [facility] Comment on above: Order Comment: 'TROP ' Serial specimen #1, #2 or #3: 1 Performed By: #### L 500.2500, L100.0100, L501.4020 #### [facility] [address] [place], [address] EST GFR - AA 108 mL/min Normal >60 [facility] Comment on above: Order Comment: 'TROP ' Serial specimen #1, #2 or #3: 1 Result Comment: Afri can Guinean GFR Calc Performed By: #### L 500.2500, L100.0100, L501.4020 #### [facility] [address] [place], [address] GAP 2 Low 5-15 [facility] Comment on above: Order Comment: 'TROP ' Serial specimen #1, #2 or #3: 1 Performed By: #### L 500.2500, L100.0100, L501.4020 #### [facility] [address] [place], [address] GFR/1.73 sq M.predicted among non-blacks MDRD (S/P/Bld) [Vol rate/Area] 89 mL/min/{1.73_m2} Normal >60 [facility] Comment on above: Order Comment: 'TROP ' Serial specimen #1, #2 or #3: 1 Result Comment: Non- GFR Calc Performed By: #### L 500.2500, L100.0100, L501.4020 #### [facility] [address] [place], [address] Glucose [Mass/Vol] 115 mg/dL High 74-106 [facility] Comment on above: Order Comment: 'TROP ' Serial specimen #1, #2 or #3: 1 Result Comment: Fast ing Glucose result from 100 to 125 mg/dL suggests IMPAIRED HOMEOSTASIS per A.D.A. criteria. Performed By: #### L 500.2500, L100.0100, L501.4020 #### [facility] [address] [place], [address] Potassium [Moles/Vol] 4.0 mmol/L Normal 3.5-5.1 [facility] Comment on above: Order Comment: 'TROP ' Serial specimen #1, #2 or #3: 1 Performed By: #### L 500.2500, L100.0100, L501.4020 #### [facility] [address] [place], [address] Sodium [Moles/Vol] 139 mmol/L Normal 136-145 [facility] Comment on above: Order Comment: 'TROP ' Serial specimen #1, #2 or #3: 1 Performed By: #### L 500.2500, L100.0100, L501.4020 #### [facility] [address] [place], [address] Urea nitrogen [Mass/Vol] 16 mg/dL Normal 7-18 [facility] Comment on above: Order Comment: 'TROP ' Serial specimen #1, #2 or #3: 1 Performed By: #### L 500.2500, L100.0100, L501.4020 #### [facility] [address] [place], [address] Bilirubin Test strip Ql (U)O rdered By: Alcides Hanks on 05-31-2024 Bilirubin Ql (U) Negative Negative [facility] CTA Chest W/WO Contraston CTA Chest W/WO Contrast [facility] Imaging Services [address] [place] [address] CTA Chest W/WO Contrast MR#: [id number] Acct: [id number] Name: WOLF TURCIOS JrFlorence Rep #: [id number] : 1960 M 64 From: Quoc Carrillo MD PCP: Dr. Iker Blackwell MD Status: REG ER Study: CTA Chest W/WO Contrast Date of Exam: 05/31/24 Exam# [id number] Ordering Dr: Alcides Hanks DO [id number] EXAM: CT ANGIOGRAPHY CHEST WITHOUT AND WITH INTRAVENOUS CONTRAST CLINICAL INDICATION: sob TECHNIQUE: Helically acquired angiography images were obtained of the chest without and with intravenous contrast. This CT exam was performed using one or more of the following dose reduction techniques: automated exposure control, adjustment of the mA and/or kV according to patient size, and/or use of iterative reconstruction technique. MIP reconstructed images were created and reviewed. CONTRAST: IV 100mL Isovue-370 RADIATION DOSE: CTDIvol = 11.93 mGy, DLP = 1084.63 mGy-cm COMPARISON: No relevant prior studies available. FINDINGS: PULMONARY ARTERIES: Unremarkable. Normal in caliber. No evidence of pulmonary embolism. AORTA: Unremarkable. Normal in caliber. No evidence of dissection. GREAT VESSELS OF AORTIC ARCH: Unremarkable. Normal in caliber. No evidence of dissection. LUNGS AND PLEURAL SPACES: Moderate to severe centrilobular emphysematous changes. Some scarring in the left lung apex and lingula. No mass. No pleural effusion or thickening. No pneumothorax. HEART: Unremarkable. Heart size is normal. No pericardial effusion. No significant coronary artery calcifications. MEDIASTINUM: Unremarkable. No mediastinal or hilar adenopathy. Esophagus is unremarkable. No hiatal hernia. THYROID: Unremarkable. No thyroid lesions. BONES/JOINTS: Degenerative changes of the spine. No suspicious lytic or blastic abnormality. CT/CTA Chest W/WO Contrast IMPRESSION: 1. No pulmonary embolism or other acute findings in the chest. 2. Moderate to severe centrilobular emphysematous changes. The presence of pulmonary emphysema on CT is an independent risk factor for lung cancer, recommend consideration for low-dose CT (LDCT) lung cancer screening in the future. This current chest CT serves as a baseline, a follow-up LDCT screening examination would be recommended in 12 months. Electronically Signed: Quoc Carrillo MD at 1:11 EST , CC: Dr. Iker Blackwell MD; Dr. Alcides Hanks DO Early Childhood Teacher: Signed Normal [facility] Epithelial cells.squamous LM Ql (Urine sed)Ordered By: Alcides Hanks on 05-31-2024 Epithelial cells.squamous LM.HPF (Urine sed) [#/Area] 0 /[HPF] 0-5 [facility] Glucose Ql (U)Ordered By: Arnie Hanks on 05-31-2024 Urine Glucose (UA) Normal mg/dl Normal [facility] Ketones Test strip Ql (U)Ord ered By: Alcides Hanks on 05-31-2024 Ketones Ql (U) Negative Negative [facility] L501.4020on 05-31-2024 TROPONIN-I HS 8 pg/mL Normal 3.0-78.0 [facility] Comment on above: Order Comment: 'TROP ' Serial specimen #1, #2 or #3: 1 Result Comment: Plea se Note: New Test Units and Gender Specific Reference Ranges. For more information see Policy Stat Procedure Poth High Sensitivity Troponin (TNIH) and attachments. Performed By: #### L 500.2500, L100.0100, L501.4020 #### [facility] [address] [place], [address] Lactic Acidon 05-31-2024 Lactate [Moles/Vol] 1.6 mmol/L Normal 0.4-1.9 [facility] Comment on above: Order Comment: Y Performed By: #### L 503.6620 #### [facility] [address] [place], [address] Lipaseon 05-31-2024 Lipase [Catalytic activity/Vol] 15 U/L Normal 13-75 [facility] Comment on above: Order Comment: 'TROP ' Serial specimen #1, #2 or #3: 1 Result Comment: Plefarhana acosta note: LIPASE revised reference range effective 22. New Lipase methodology. Expected to produce lower values than the previous assay method. NEW Reference Range: 13 - 75 U/L Performed By: #### L 500.2500, L100.0100, L501.4020 #### [facility] [address] [place], [address] Liver Profileon 05-31-2024 Albumin [Mass/Vol] 2.9 g/dL Low 3.2-5.0 [facility] Comment on above: Order Comment: 'TROP ' Serial specimen #1, #2 or #3: 1 Performed By: #### L 500.2500, L100.0100, L501.4020 #### [facility] [address] [place], [address] ALK P 86 U/L Normal 45-117 [facility] Comment on above: Order Comment: 'TROP ' Serial specimen #1, #2 or #3: 1 Performed By: #### L 500.2500, L100.0100, L501.4020 #### [facility] [address] [place], [address] ALT [Catalytic activity/Vol] 52 U/L Normal 16-61 [facility] Comment on above: Order Comment: 'TROP ' Serial specimen #1, #2 or #3: 1 Performed By: #### L 500.2500, L100.0100, L501.4020 #### [facility] [address] [place], [address] AST [Catalytic activity/Vol] 21 U/L Normal 15-37 [facility] Comment on above: Order Comment: 'TROP ' Serial specimen #1, #2 or #3: 1 Performed By: #### L 500.2500, L100.0100, L501.4020 #### [facility] [address] [place], [address] Bilirubin [Mass/Vol] 0.40 mg/dL Normal 0.20-1.00 [facility] Comment on above: Order Comment: 'TROP ' Serial specimen #1, #2 or #3: 1 Result Comment: For patients on eltrombopag therapy, use of Dimension Poth TBIL is not recommended. Performed By: #### L 500.2500, L100.0100, L501.4020 #### [facility] [address] [place], [address] Bilirubin.direct [Mass/Vol] 0.10 mg/dL Normal 0.00-0.30 [facility] Comment on above: Order Comment: 'TROP ' Serial specimen #1, #2 or #3: 1 Performed By: #### L 500.2500, L100.0100, L501.4020 #### [facility] [address] [place], [address] Globulin (S) [Mass/Vol] 3.5 g/dL Normal 2.2-4.2 [facility] Comment on above: Order Comment: 'TROP ' Serial specimen #1, #2 or #3: 1 Performed By: #### L 500.2500, L100.0100, L501.4020 #### [facility] [address] [place], [address] T PROT 6.4 g/dL Normal 6.4-8.2 [facility] Comment on above: Order Comment: 'TROP ' Serial specimen #1, #2 or #3: 1 Performed By: #### L 500.2500, L100.0100, L501.4020 #### [facility] [address] [place], [address] M100.678on 05-31-2024 M100.678 Pending SARS-CoV-2 (COVID 19) Negative INFLUENZA A Negative INFLUENZA B Negative RSV PCR Negative Normal [facility] Comment on above: Performed By: #### M 100.678 ####[facility] [address] [place], [address] Microscopic analysis of urin e for red blood cells (RBC)Ordered By: Alcides Hanks on 05-31-2024 Urine RBC 0 SEEN /hpf 0-5 [facility] Mucus LM Ql (Urine sed)Order ed By: Alcides Hanks on 05-31-2024 Mucus Ql (Urine sed) 0 SEEN /hpf [facility] Nitrite Test strip Ql (U)Ord ered By: Alcides Hanks on 05-31-2024 Nitrite Ql (U) Negative Negative [facility] Partial Thromboplast Timeon 05-31-2024 aPTT Coag (Bld) [Time] 22.8 s Low 24.1-36.2 [facility] Comment on above: Performed By: #### L 503.6620 #### [facility] [address] [place], [address] Protein Test strip Ql (U)Ord ered By: Alcides Hanks on 05-31-2024 Protein Ql (U) 15 mg/dl High Negative [facility] Prothrombin Time w/INRon INR Coag (PPP) [Relative time] 0.9 {INR} Normal [facility] Comment on above: Performed By: #### L 503.6620 #### [facility] [address] [place], [address] PT Coag (PPP) [Time] 11.8 s Normal 11.7-14.9 [facility] Comment on above: Performed By: #### L 503.6620 #### [facility] [address] [place], [address] Urinalysis, Completeon 05-31 AMORPHOUS 2+ Normal [facility] Comment on above: Order Comment: SENT LABEL TO PCU TO COLLECTCOLLECTOR TO SPECIFY Performed By: #### M 100.2200, L400.0001 ####[facility] [address] [place], [address] BACTERIA 0 SEEN Normal None Seen [facility] Comment on above: Order Comment: SENT LABEL TO PCU TO COLLECTCOLLECTOR TO SPECIFY Performed By: #### M 100.2200, L400.0001 ####[facility] [address] [place], [address] EPI,SQUAMOUS 0 SEEN Normal 0-5 [facility] Comment on above: Order Comment: SENT LABEL TO PCU TO COLLECTCOLLECTOR TO SPECIFY Performed By: #### M 100.2200, L400.0001 ####[facility] [address] [place], [address] Mucus Ql (Urine sed) 0 SEEN Normal [facility] Comment on above: Order Comment: SENT LABEL TO PCU TO COLLECTCOLLECTOR TO SPECIFY Performed By: #### M 100.2200, L400.0001 ####[facility] [address] [place], [address] RBC 0 SEEN Normal 0-5 [facility] Comment on above: Order Comment: SENT LABEL TO PCU TO COLLECTCOLLECTOR TO SPECIFY Performed By: #### M 100.2200, L400.0001 ####[facility] [address] [place], [place], [address] WBC 0 SEEN Normal 0-5 [facility] Comment on above: Order Comment: SENT LABEL TO PCU TO COLLECTCOLLECTOR TO SPECIFY Performed By: #### M 100.2200, L400.0001 ####[facility] [address] [place], [place], [id number] Urine blood detectionOrdered By: Alcides Hanks on 05-31-2024 Urine Occult Blood Negative Negative [facility] Urine clarityOrdered By: Gisela Hanks on 05-31-2024 Clarity (U) Sl. Cloudy Clear [facility] Urine color determinationOrd ered By: Alcides Hanks on 05-31-2024 Color (U) Yellow Yellow [facility] Urine cultureOrdered By: Gisela Hanks on 05-31-2024 Bacteria identified Cx Nom (U) Mixed Gram Pos & Gram Neg Org Abnormal [facility] Urine leukocyte esterase det ection by dipstickOrdered By: Alcides Hanks on 05-31-2024 Leukocyte esterase Test strip Ql (U) Negative Negative [facility] Urine pHOrdered By: Alcides badillo on 05-31-2024 pH (U) 7.0 [pH] 5.0 - 8.0 [facility] Urine sediment bacteria coun t by microscopy (number/high power field)Ordered By: Alcides Hanks on 05-31-2024 Bacteria LM.HPF (Urine sed) [#/Area] 0 /[HPF] None Seen [facility] Urine specific gravity measu rementOrdered By: Alcides Hanks on 05-31-2024 Specific gravity (U) [Rel density] 1.010 1.002-1.030 [facility] Urobilinogen Ql (U)Ordered B y: Alcides Hanks on 05-31-2024 Urine Urobilinogen Normal mg/dl Normal [facility] White blood cell countOrdere d By: Alcides Hanks on 05-31-2024 Urine WBC 0 SEEN /hpf 0-5 [facility] 12 Lead EKGon 05-30-2024 12 Lead EKG [facility] Cardiovascular Services [address] [place] [address] 12 Lead EKG 05/30/24 2327 MR#: [id number] Acct: [id number] Name: WOLF TURCIOS Jr. Rep #: [id number] : 1960 64 From: Rohit Hyman MD Attending Dr: Status: DEP ER Ordering Dr: Alcides Hanks DO Date: 05/30/24 Location: ED Sex: M C Admitted: Test Reason : DYSRHYTHMIA Blood Pressure : */* mmHG Vent. Rate : 121 BPM Atrial Rate : 122 BPM P-R Int : 128 ms QRS Dur : 86 ms QT Int : 298 ms P-R-T Axes : 83 64 71 degrees QTcB Int : 423 ms Sinus tachycardia Low voltage QRS Borderline ECG Confirmed by ROCK BOYER, ROHIT ([id number]), photo editor YENNY NUNEZ ([id number]) on 06/02/2024 2:14:35 PM Referred By: TB Confirmed By: ROHIT HYMAN MD 06/02/24 1414 Date Rohit Hyman MD CC: Dr. Iker Blackwell MD; Dr. Alcides Hanks DO Signed Normal [facility] Absolute neutrophil countOrd ered By: Alcides Hanks on 05-30-2024 Neutrophils (Bld) [#/Vol] 11.8 10*3/uL High 2.0-7.7 [facility] Arterial patency Wrist arter y --pre arterial punctureOrdered By: Alcides Hanks on 05-30-2024 Humaira Test Positive [facility] BNP (brain natriuretic pepti de measurement)Ordered By: Alcides Hanks on 05-30-2024 Natriuretic peptide B (Bld) [Mass/Vol] 11.7 pg/mL 0-100 [facility] Base excess Calc (BldV) [Mol es/Vol]Ordered By: Alcides Hanks on 05-30-2024 Blood Gas Base Excess 11 mmol/L High -2-2 [facility] Basophil percentageOrdered B y: Alcides Hanks on 05-30-2024 Basophils/100 WBC (Bld) 0.3 % 0-1 [facility] Bilirubin directOrdered By: Alcides Hanks on 05-30-2024 Bilirubin.direct [Mass/Vol] 0.10 mg/dL 0.00-0.30 [facility] Bilirubin, totalOrdered By: Alcides Hanks on 05-30-2024 Bilirubin [Mass/Vol] 0.40 mg/dL 0.20-1.00 [facility] Comment on above: For patients on eltr ombopag therapy, use of Dimension Poth TBIL is not recommended. Blood Gases by [facility] 024 HUMAIRA TEST Positive Normal [facility] Comment on above: Performed By: #### L 503.6620 #### [facility] [address] [place], [address] Base excess Calc (Bld) [Moles/Vol] 11 mmol/L High -2 to +2 [facility] Comment on above: Performed By: #### L 503.6620 #### [facility] [address] [place], [address] Blood Gas Type ART Normal [facility] Comment on above: Performed By: #### L 503.6620 #### [facility] [address] [place], [address] CO2 [Moles/Vol] 38 mmol/L [facility] Comment on above: Performed By: #### L 503.6620 #### [facility] [address] [place], [address] FI02 2.0 Normal [facility] Comment on above: Performed By: #### L 503.6620 #### [facility] [address] [place], [address] HCO3 (Bld) [Moles/Vol] 36.3 mmol/L High 22-26 [facility] Comment on above: Performed By: #### L 503.6620 #### [facility] [address] [place], [address] Mode Not entered Normal [facility] Comment on above: Performed By: #### L 503.6620 #### [facility] [address] [place], [address] O2 Delivery Dev Cannula Normal [facility] Comment on above: Performed By: #### L 503.20 #### [facility] [address] [place], [address] pCO2 60.7 mmHg High 35-45 [facility] Comment on above: Performed By: #### L 503.20 #### [facility] [address] [place], [address] pH (Bld) 7.39 [pH] Normal 7.35-7.45 [facility] Comment on above: Performed By: #### L 503.20 #### [facility] [address] [place], [address] PO2 92 mmHG Normal 75-100 [facility] Comment on above: Performed By: #### L 503.20 #### [facility] [address] [place], [address] SITE L Radial Normal [facility] Comment on above: Performed By: #### L 503.6620 #### [facility] [address] [place], [address] SO2 97 Normal 95-99 [facility] Comment on above: Performed By: #### L 503.6620 #### [facility] [address] [place], [address] Blood bicarbonate measuremen tOrdered By: Alcides Hanks on 05-30-2024 Blood Gas Bicarbonate Actual 36.3 mmol/L High 22-26 [facility] Blood cultureOrdered By: Gisela Hanks on 05-30-2024 Bacteria identified Cx Nom (Bld) No growth in 5 days. [facility] Bacteria identified Cx Nom (Bld) No growth in 5 days. [facility] Blood urea nitrogen (BUN)/cr eatinine ratioOrdered By: Alcides Hanks on 05-30-2024 Urea nitrogen/Creatinine [Mass ratio] 17.5 mg/mg 10- [facility] CBC W/Diff, Automatedon 05-09 Absolute Lymph 2.11 X10 3/uL Normal 0.83-4.51 [facility] Comment on above: Performed By: #### L 503.6620 #### [facility] [address] [place], [address] Absolute Neut 11.8 X10 3/uL High 2.0-7.7 [facility] Comment on above: Performed By: #### L 503.6620 #### [facility] [address] [place], [address] Basophils/100 WBC (Bld) 0.3 % Normal 0-1 [facility] Comment on above: Performed By: #### L 503.20 #### [facility] [address] [place], [address] Eosinophils/100 WBC (Bld) 6.6 % High 0-5 [facility] Comment on above: Performed By: #### L 503.6620 #### [facility] [address] [place], [address] Erythrocyte distribution width (RBC) [Ratio] 13.2 % Normal 11.6-14.6 [facility] Comment on above: Performed By: #### L 503.6620 #### [facility] [address] [place], [address] Hematocrit (Bld) [Volume fraction] 49.5 % Normal 40-54 [facility] Comment on above: Performed By: #### L 503.6620 #### [facility] [address] [place], [address] Hemoglobin (Bld) [Mass/Vol] 15.6 g/dL Normal 13.0-16.5 [facility] Comment on above: Performed By: #### L 503.6620 #### [facility] [address] [place], [address] IG% 2.100 High 0.0-0.9 [facility] Comment on above: Result Comment: IG% - Immature Granulocytes (promyelocytes, myelocytes and metamyelocytes) > 1% indicates that a LEFT SHIFT is Present. Performed By: #### L 503.20 #### [facility] [address] [place], [address] Lymphocytes/100 WBC (Bld) 12.7 % Low 19-41 [facility] Comment on above: Performed By: #### L 503.20 #### [facility] [address] [place], [address] MCH (RBC) [Entitic mass] 30.2 pg Normal 27.0-32.0 [facility] Comment on above: Performed By: #### L 503.20 #### [facility] [address] [place], [address] MCHC (RBC) [Mass/Vol] 31.5 g/dL Low 32-36 [facility] Comment on above: Performed By: #### L 503.20 #### [facility] [address] [place], [address] MCV (RBC) [Entitic vol] 95.9 fL High 80-94 [facility] Comment on above: Performed By: #### L 503.20 #### [facility] [address] [place], [address] Monocytes/100 WBC (Bld) 7.3 % Normal 0-10 [facility] Comment on above: Performed By: #### L 503.20 #### [facility] [address] [place], [address] Neutrophils/100 WBC (Bld) 71.0 % High 47-70 [facility] Comment on above: Performed By: #### L 503.20 #### [facility] [address] [place], [address] Nucleated RBC (Bld) [#/Vol] 0 10*3/uL Normal 0-5 [facility] Comment on above: Performed By: #### L 503.6619 #### [facility] [address] [place], [address] Platelet mean volume (Bld) [Entitic vol] 8.8 fL Normal 6.2-12.0 [facility] Comment on above: Performed By: #### L 503.6619 #### [facility] [address] [place], [address] Platelets (Bld) [#/Vol] 261 10*3/uL Normal 150-450 [facility] Comment on above: Performed By: #### L 503.6619 #### [facility] [address] [place], [address] RBC (Bld) [#/Vol] 5.16 10*6/uL Normal 4.6-6.2 [facility] Comment on above: Performed By: #### L 503.20 #### [facility] [address] [place], [address] RDW SD 47.0 fl High 35.1-43.9 [facility] Comment on above: Performed By: #### L 503.20 #### [facility] [address] [place], [address] WBC (Bld) [#/Vol] 16.6 10*3/uL High 4.4-11.0 [facility] Comment on above: Performed By: #### L 503.6619 #### [facility] [address] [place], [address] Carbon dioxide measurementOr dered By: Alcides Hanks on 05-30-2024 CO2 [Moles/Vol] 36.0 mmol/L High 21.0-32.0 [facility] Chloride measurementOrdered By: Alcides Hanks on 05-30-2024 Chloride [Moles/Vol] 101 mmol/L 98-107 [facility] Determination of fraction of inspired oxygenOrdered By: Alcides Hanks on 05-30-2024 Blood Gas Oxygen Percent 2.0 [facility] Emergency Department Summary on 05-30-2024 Emergency Department Summary [facility] Medical Records Department [address] [place] [address] Emergency Department Summary 05/30/24 MR#: [id number] Acct: [id number] Name: WOLF TURCIOS Jr. Rep #: [id number] : 1960 64 From: Alcides Hanks DO PCP: Dr. Iker Blackwell MD Status:REG ER Location: ED HPI History of Present Illness Chief Complaint: Shortness of Breath Narrative Narrative: Patient is a 64-year-old male with past medical history of COPD chronically on 2.5 L, hypertension, TIA, history of substance abuse who presents to the emergency department with a chief complaint of cough and shortness of breath. Patient states that he was recently discharged from the hospital and finished a course of steroids yesterday. He states that he spent all day in bed not feeling well. He states he is having increased sputum production. He states that tonight he had significant difficulty with breathing despite using his breathing treatments therefore he came here for the valuation management. Patient denies any history of blood clots and denies any blood thinner medications denies any recent travel history. Patient was noted to be hypoxic on his 2.5 L nasal cannula per EMS therefore they placed him on 5 L. [facility] Medical History History of substance use History of alcohol abuse Smoker Emphysema lung Asthma COPD (chronic obstructive pulmonary disease) Hypertension Migraines TIA (transient ischemic attack) Adverse reaction to REEMA inhibitor drug Home Medications ???Medication ???Instructions ???Recorded ???Last Taken ???Type albuterol sulfate 90 mcg/actuation 1 - 2 puff inhalation Q4H PRN PRN 01/02/24 Unknown Rx aerosol inhaler (Ventolin HFA) Wheezing #1 ea fluticasone fur. 100 mcg-umeclid 1 ea inhalation DAILY breathing 01/21/24 Unknown History 62.5 mcg-vilant 25 mcg inhalat.powder (Trelegy Ellipta) ipratropium 0.5 mg-albuterol 3 mg 1.5 ml inhalation Q8H PRN copd 01/21/24 Unknown History (2.5 mg base)/3 mL nebulization soln loratadine 10 mg tablet (Allergy 10 mg PO Q24H PRN allergy symptoms 01/21/24 Unknown History Relief (loratadine)) omeprazole 20 mg capsule,delayed 20 mg PO DAILY reflux 01/21/24 Unknown History release tamsulosin 0.4 mg capsule 0.4 mg PO DAILY prostate 01/21/24 Unknown History amlodipine 2.5 mg tablet (Norvasc) 2.5 mg PO DAILY bp #30 tabs 01/22/24 Unknown Rx diphenhydramine HCl 25 mg capsule 50 mg (2 x 25 mg) PO TID PRN 01/22/24 Unknown Rx allergic reaction #20 caps cyclobenzaprine 10 mg tablet 10 mg PO BID spasm 05/17/24 Unknown History dextromethorphan-guaifene sin 30 1 tab PO Q12H PRN cough #14 tabs 05/18/24 Unknown Rx mg-600 mg tablet extended [id number] hr (Mucus DM) nystatin 100,000 unit/mL oral 500,000 unit (5 mL) PO 4X/DAY 7 05/18/24 Unknown Rx suspension days #140 mL amoxicillin 875 mg-potassium 1 tab PO BID #10 tabs 05/23/24 Unknown Rx clavulanate 125 mg tablet prednisone 20 mg tablet 40 mg (2 x 20 mg) PO DAILY #10 tabs 05/23/24 Unknown Rx doxycycline hyclate 100 mg capsule 100 mg PO BID 10 days #20 caps 05/31/24 Unknown Rx prednisone 50 mg tablet 50 mg PO DAILY 5 days #5 tabs 05/31/24 Unknown Rx Allergy/AdvReac Type Severity Reaction Status Date / Time lisinopril Allergy Severe Angioedema Verified 05/30/24 23:18 codeine Allergy Mild Itching Verified 05/30/24 23:18 Family History Mother Uterine cancer Father ETOH abuse Surgical History History of testicular surgery History of gastric surgery History of bilateral inguinal hernia repair History of total right hip replacement Social History household members: other details: His daugher and his grandson live with him. Smoking Status: Former smoker how long ago did patient quit smoking: Patient prior smoked up to 2 ppd, started at age 9, down to 1 pack max/week quit status: considering quitting alcohol intake: former substance use type: former substance user ROS ROS ED ROS Narrative Constitutional: Complains of chills and fever denies headaches, lightness, dizziness Eyes: Denies change in vision double vision blurry vision Cardiovascular: Complains of left-sided chest discomfort denies palpitations Respiratory: Complains of increased butyrin production and shortness of breath as noted above as well as wheezing Abdomen: Complains of abdominal pain and nausea denies vomiting or diarrhea states that he is passing gas. Patient states that he has had previous abdominal surgeries : Denies any urinary symptoms Neurological: Denies any numbness, weakness, tingling Musculoskeletal: Denies back pain Skin: Denies rashes (more content not included)... Normal [facility] Eosinophil percentageOrdered By: Alcides Hanks on 05-30-2024 Eosinophils/100 WBC (Bld) 6.6 % High 0-5 [facility] Erythrocyte distribution wid th ratioOrdered By: Alcides Hanks on 05-30-2024 Erythrocyte distribution width (RBC) [Ratio] 13.2 % 11.6-14.6 [facility] Erythrocyte distribution wid th standard deviationOrdered By: Alcides Hanks on 05-30-2024 Erythrocyte distribution width (RBC) [Entitic vol] 47.0 fL High 35.1-43.9 [facility] Estimated glomerular filtrat ion rate (GFR) AmericanOrdered By: Alcides Hanks on 05-30-2024 Estimated GFR (MDRD) Amer 108 mL/min >60 [facility] Comment on above: GFR Calc Estimation of creatinine kehinde aranceOrdered By: Alcides Hanks on 05-30-2024 Estimated Creatinine Clearance Calc 82.70 ml/min [facility] Glomerular filtration rate ( GFR) estimationOrdered By: Alcides Hanks on 05-30-2024 Estimated GFR (MDRD) Non-Af Amer 89 mL/min >60 [facility] Comment on above: Non- GFR Calc Glucose measurementOrdered B y: Alcides Hanks on 05-30-2024 Glucose [Mass/Vol] 115 mg/dL High 74-106 [facility] Comment on above: Fasting Glucose resu lt from 100 to 125 mg/dL suggests IMPAIRED HOMEOSTASIS per A.D.A. criteria. Hematocrit Auto (Bld) [Volum e fraction]Ordered By: Alcides Hanks on 05-30-2024 Hematocrit (Bld) [Volume fraction] 49.5 % 40-54 [facility] Hemoglobin measurementOrdere d By: Alcides Hanks on 05-30-2024 Hemoglobin (Bld) [Mass/Vol] 15.6 g/dL 13.0-16.5 [facility] Immature granulocytes/100 WB C Auto (Bld)Ordered By: Alcides Hanks on 05-30-2024 Immature granulocytes/100 WBC (Bld) 2.100 % High 0.0-0.9 [facility] Comment on above: IG% - Immature Granu locytes (promyelocytes, myelocytes and metamyelocytes) > 1% indicates that a LEFT SHIFT is Present. Influenza virus A and B and SARS-CoV-2 (COVID-19) and Respiratory syncytial virus RNAOrdered By: Alcides Hanks on 05-30-2024 SARS-CoV-2 (COVID-19) RNA MOMO+probe Ql (Unsp spec) [facility] [employer] normalized rat io (INR) calculationOrdered By: Alcides Hanks on 05-30-2024 INR Coag (Bld) [Relative time] 0.9 {INR} [facility] - Chemistry and C hemistry - challengeOrdered By: Alcides Hanks on 05-30-2024 AST [Catalytic activity/Vol] 21 U/L 15-37 [facility] Lactic acid measurementOrder ed By: Alcides Hanks on 05-30-2024 Lactate [Moles/Vol] 1.6 mmol/L 0.4-2.0 [facility] Lipase measurementOrdered By : Alcides Hanks on 05-30-2024 Lipase [Catalytic activity/Vol] 15 U/L 13-75 [facility] Comment on above: Please note:LIPASE r evised reference range effective 22. New Lipase methodology. Expected to produce lower values than the previous assay method. NEW Reference Range: 13 - 75 U/L Lymphocytes Auto (Unsp spec) [#/Vol]Ordered By: Alcides Hanks on 05-30-2024 Lymphocytes (Bld) [#/Vol] 2.11 10*3/uL 0.83-4.51 [facility] Lymphocytes/100 WBC Auto (Un sp spec)Ordered By: Alcides Hanks on 05-30-2024 Lymphocytes/100 WBC (Bld) 12.7 % Low 19-41 [facility] MCV (mean corpuscular volume ) determinationOrdered By: Alcides Hanks on 05-30-2024 MCV (RBC) [Entitic vol] 95.9 fL High 80-94 [facility] Mean corpuscular hemoglobin (MCH) determinationOrdered By: Alcides Hanks on 05-30-2024 MCH (RBC) [Entitic mass] 30.2 pg 27.0-32.0 [facility] Mean corpuscular hemoglobin concentration (MCHC) determinationOrdered By: Alcides Hanks on 05-30-2024 MCHC (RBC) [Mass/Vol] 31.5 g/dL Low 32-36 [facility] Mean platelet volume determi nationOrdered By: Alcides Hanks on 05-30-2024 Platelet mean volume (Bld) [Entitic vol] 8.8 fL 6.2-12.0 [facility] Monocyte percentageOrdered B y: Alcides Hanks on 05-30-2024 Monocytes/100 WBC (Bld) 7.3 % 0-10 [facility] Neutrophil percentageOrdered By: Alcides Hanks on 05-30-2024 Neutrophils/100 WBC (Bld) 71.0 % High 47-70 [facility] No Panel InformationOrdered By: Alcides Hanks on 05-30-2024 Blood Gas Sample Site L Radial [facility] Blood Gas Specimen Type ART [facility] Blood Gas Vent Mode Not entered [facility] Oxygen Delivery Device Cannula [facility] Nucleated red blood cell per centageOrdered By: Alcides Hanks on 05-30-2024 Nucleated RBC/100 WBC (Bld) [Ratio] 0 % 0-5 [facility] Oxygen saturation measuremen tOrdered By: Alcides Hanks on 05-30-2024 Blood Gas Oxygen Saturation 97 % 95-99 [facility] Partial pressure of carbon d ioxide measurementOrdered By: Alcides Hanks on 05-30-2024 Arterial Blood Partial Pressure CO2 60.7 mmHg High 35-45 [facility] Partial pressure of oxygen m easurementOrdered By: Alcides Hanks on 05-30-2024 Arterial Blood Partial Pressure O2 92 mmHG 75-100 [facility] Platelet countOrdered By: Arnie Hanks on 05-30-2024 Platelets (Bld) [#/Vol] 261 10*3/uL 150-450 [facility] Potassium measurementOrdered By: Alcides Hanks on 05-30-2024 Potassium [Moles/Vol] 4.0 mmol/L 3.5-5.1 [facility] Prothrombin timeOrdered By: Alcides Hanks on 05-30-2024 PT Coag (PPP) [Time] 11.8 s 11.7-14.9 [facility] RBC Auto (Bld) [#/Vol]Ordere d By: Alcides Hanks on 05-30-2024 RBC (Bld) [#/Vol] 5.16 10*6/uL 4.6-6.2 [facility] Serum anion gap measurementO rdered By: Alcides Hanks on 05-30-2024 Anion gap [Moles/Vol] 2 mmol/L Low 5-15 [facility] Serum globulin measurementOr dered By: Alcides Hanks on 05-30-2024 Globulin (S) [Mass/Vol] 3.5 g/dL 2.2-4.2 [facility] Serum or plasma alanine augustine otransferase (ALT) measurementOrdered By: Alcides Hanks on 05-30-2024 ALT [Catalytic activity/Vol] 52 U/L 16-61 [facility] Serum or plasma albumin margie urement (mass/volume)Ordered By: Alcides Hanks on 05-30-2024 Albumin [Mass/Vol] 2.9 g/dL Low 3.2-5.0 [facility] Serum or plasma alkaline jacobo sphatase measurementOrdered By: Alcides Hanks on 05-30-2024 ALP [Catalytic activity/Vol] 86 U/L 45-117 [facility] Serum or plasma calcium margie urement (mass/volume)Ordered By: Alcides Hanks on 05-30-2024 Calcium [Mass/Vol] 8.6 mg/dL 8.5-10.1 [facility] Serum or plasma creatinine m easurement (mass/volume)Ordered By: Alcides Hanks on 05-30-2024 Creatinine [Mass/Vol] 0.91 mg/dL 0.70-1.30 [facility] Comment on above: The validity of the calculated GFR & GFRAA in patients over 70 years has not been determined. Clinical correlation is essential. Serum or plasma urea nitroge n measurement (mass/volume)Ordered By: Alcides Hanks on 05-30-2024 Urea nitrogen [Mass/Vol] 16 mg/dL 7-18 [facility] Sodium levelOrdered By: Tisha Hanks on 05-30-2024 Sodium [Moles/Vol] 139 mmol/L 136-145 [facility] Total carbon dioxide measure mentOrdered By: Alcides Hanks on 05-30-2024 Blood Gas Total CO2 38 mmol/L [facility] Total proteinOrdered By: Gisela Hanks on 05-30-2024 Protein [Mass/Vol] 6.4 g/dL 6.4-8.2 [facility] Troponin IOrdered By: Alcides Hanks on 05-30-2024 Troponin I High Sensitivity 8 pg/mL 3.0-78.0 [facility] Comment on above: Please Note: New Melvin t Units and Gender Specific Reference Ranges. For more information see Policy Stat Procedure Poth High Sensitivity Troponin (TNIH) and attachments. White blood cell (WBC) count Ordered By: Alcides Hanks on 05-30-2024 WBC (Bld) [#/Vol] 16.6 10*3/uL High 4.4-11.0 [facility] aPTT Coag (PPP) [Time]Ordere d By: Alcides Hanks on 05-30-2024 aPTT Coag (Bld) [Time] 22.8 s Low 24.1-36.2 [facility] pH (Unsp spec)Ordered By: Arnie lona Hanks on 05-30-2024 Blood Gas pH 7.39 7.35-7.45 [facility] Culture, Blood (WB)on 2023 CUB Blood cultures x2, f rom two different sites No growth in 5 days. Normal [facility] Comment on above: Performed By: #### L 503.6620 #### [facility] [address] [place], [place], [id number] Respiratory Cultureon 2023 RESPC Pseudomonas aerugino sa Amount Growth 3+ Pseudomonas aeruginosa: REACTION Aztreonam Islt KB 18 I Pseudomonas aeruginosa: REACTION Amikacin Islt RAFAELA 4 S Cefepime Islt RAFAELA 2 S Ciprofloxacin Islt RAFAELA <=0.06 S Imipenem Islt RAFAELA 2 S levoFLOXacin Islt RAFAELA <=0.12 S Meropenem Islt RAFAELA 1 S Pip+Tazo Islt RAFAELA 8 S Tobramycin Islt RAFAELA <=1 S Normal [facility] Comment on above: Performed By: #### L 1613.0500 #### [facility] [address] [place], [place], [id number] Gram Stainon 05-22-2024 GS Acceptable Specimen? Yes (<25 Epithelial cells per/lpf) Gram Stain 4+ Gram negative rods Rare Epithelial cells 1+ White Blood Cells Rare Gram positive cocci Normal [facility] Comment on above: Performed By: #### L 9150.0500 #### [facility] [address] [place], [place], [id number] Absolute neutrophil countOrd ered By: White on 05-21-2024 Neutrophils (Bld) [#/Vol] 8.0 10*3/uL High 2.0-7.7 [facility] Albumin to globulin ratioOrd ered By: White on 05-21-2024 Albumin/Globulin [Mass ratio] 0.9 {ratio} 0.9-2.4 [facility] Basophil percentageOrdered B y: Noelle Fleming on 05-21-2024 Basophils/100 WBC (Bld) 0.2 % 0-1 [facility] Bilirubin, totalOrdered By: Noelle White on 05-21-2024 Bilirubin [Mass/Vol] 0.30 mg/dL 0.20-1.00 [facility] Comment on above: For patients on eltr ombopag therapy, use of Dimension Poth TBIL is not recommended. Blood urea nitrogen (BUN)/cr eatinine ratioOrdered By: Noelle White on 05-21-2024 Urea nitrogen/Creatinine [Mass ratio] 15.0 mg/mg 10- [facility] CBC W/Diff, Automatedon 05-08 Absolute Lymph 0.40 X10 3/uL Low 0.83-4.51 [facility] Comment on above: Performed By: #### L 500.2500, L100.0100, L501.4020 #### [facility] [address] [place], [address] Absolute Neut 8.0 X10 3/uL High 2.0-7.7 [facility] Comment on above: Performed By: #### L 500.2500, L100.0100, L501.4020 #### [facility] [address] [place], [address] Basophils/100 WBC (Bld) 0.2 % Normal 0-1 [facility] Comment on above: Performed By: #### L 500.2500, L100.0100, L501.4020 #### [facility] [address] [place], [address] Eosinophils/100 WBC (Bld) 0.1 % Normal 0-5 [facility] Comment on above: Performed By: #### L 500.2500, L100.0100, L501.4020 #### [facility] [address] [place], [address] Erythrocyte distribution width (RBC) [Ratio] 13.0 % Normal 11.6-14.6 [facility] Comment on above: Performed By: #### L 500.2500, L100.0100, L501.4020 #### [facility] [address] [place], [address] Hematocrit (Bld) [Volume fraction] 46.4 % Normal 40-54 [facility] Comment on above: Performed By: #### L 500.2500, L100.0100, L501.4020 #### [facility] [address] [place], [address] Hemoglobin (Bld) [Mass/Vol] 14.7 g/dL Normal 13.0-16.5 [facility] Comment on above: Performed By: #### L 500.2500, L100.0100, L501.4020 #### [facility] [address] [place], [address] IG% 0.100 Normal 0.0-0.9 [facility] Comment on above: Result Comment: IG% - Immature Granulocytes (promyelocytes, myelocytes and metamyelocytes) > 1% indicates that a LEFT SHIFT is Present. Performed By: #### L 500.2500, L100.0100, L501.4020 #### [facility] [address] [place], [address] Lymphocytes/100 WBC (Bld) 4.7 % Low 19-41 [facility] Comment on above: Performed By: #### L 500.2500, L100.0100, L501.4020 #### [facility] [address] [place], [address] MCH (RBC) [Entitic mass] 30.6 pg Normal 27.0-32.0 [facility] Comment on above: Performed By: #### L 500.2500, L100.0100, L501.4020 #### [facility] [address] [place], [address] MCHC (RBC) [Mass/Vol] 31.7 g/dL Low 32-36 [facility] Comment on above: Performed By: #### L 500.2500, L100.0100, L501.4020 #### [facility] [address] [place], [address] MCV (RBC) [Entitic vol] 96.5 fL High 80-94 [facility] Comment on above: Performed By: #### L 500.2500, L100.0100, L501.4020 #### [facility] [address] [place], [address] Monocytes/100 WBC (Bld) 0.8 % Normal 0-10 [facility] Comment on above: Performed By: #### L 500.2500, L100.0100, L501.4020 #### [facility] [address] [place], [address] Neutrophils/100 WBC (Bld) 94.1 % High 47-70 [facility] Comment on above: Performed By: #### L 500.2500, L100.0100, L501.4020 #### [facility] [address] [place], [address] Nucleated RBC (Bld) [#/Vol] 0 10*3/uL Normal 0-5 [facility] Comment on above: Performed By: #### L 500.2500, L100.0100, L501.4020 #### [facility] [address] [place], [address] Platelet mean volume (Bld) [Entitic vol] 9.3 fL Normal 6.2-12.0 [facility] Comment on above: Performed By: #### L 500.2500, L100.0100, L501.4020 #### [facility] [address] [place], [address] Platelets (Bld) [#/Vol] 272 10*3/uL Normal 150-450 [facility] Comment on above: Performed By: #### L 500.2500, L100.0100, L501.4020 #### [facility] [address] [place], [address] RBC (Bld) [#/Vol] 4.81 10*6/uL Normal 4.6-6.2 [facility] Comment on above: Performed By: #### L 500.2500, L100.0100, L501.4020 #### [facility] [address] [place], [address] RDW SD 46.3 fl High 35.1-43.9 [facility] Comment on above: Performed By: #### L 500.2500, L100.0100, L501.4020 #### [facility] [address] [place], [address] WBC (Bld) [#/Vol] 8.5 10*3/uL Normal 4.4-11.0 [facility] Comment on above: Performed By: #### L 500.2500, L100.0100, L501.4020 #### [facility] [address] [place], [address] Carbon dioxide measurementOr dered By: Noelle Fleming on 05-21-2024 CO2 [Moles/Vol] 32.0 mmol/L 21.0-32.0 [facility] Chloride measurementOrdered By: Noelle Fleming on 05-21-2024 Chloride [Moles/Vol] 103 mmol/L 98-107 [facility] Comprehensive Metabolic Prof ilon 05-21-2024 Albumin [Mass/Vol] 2.9 g/dL Low 3.2-5.0 [facility] Comment on above: Performed By: #### L 500.2500, L100.0100, L501.4020 #### [facility] [address] [place], [address] Albumin/Globulin [Mass ratio] 0.9 {ratio} Normal 0.9-2.4 [facility] Comment on above: Performed By: #### L 500.2500, L100.0100, L501.4020 #### [facility] [address] [place], [address] ALK P 79 U/L Normal 45-117 [facility] Comment on above: Performed By: #### L 500.2500, L100.0100, L501.4020 #### [facility] [address] [place], [address] ALT [Catalytic activity/Vol] 27 U/L Normal 16-61 [facility] Comment on above: Performed By: #### L 500.2500, L100.0100, L501.4020 #### [facility] [address] [place], [address] AST [Catalytic activity/Vol] 15 U/L Normal 15-37 [facility] Comment on above: Performed By: #### L 500.2500, L100.0100, L501.4020 #### [facility] [address] [place], [address] Bilirubin [Mass/Vol] 0.30 mg/dL Normal 0.20-1.00 [facility] Comment on above: Result Comment: For patients on eltrombopag therapy, use of Dimension Poth TBIL is not recommended. Performed By: #### L 500.2500, L100.0100, L501.4020 #### [facility] [address] [place], [address] BUN/CRE 15.0 RATIO Normal 10-20 [facility] Comment on above: Performed By: #### L 500.2500, L100.0100, L501.4020 #### [facility] [address] [place], [address] CA,Total 8.9 mg/dL Normal 8.5-10.1 [facility] Comment on above: Performed By: #### L 500.2500, L100.0100, L501.4020 #### [facility] [address] [place], [address] Chloride [Moles/Vol] 103 mmol/L Normal 98-107 [facility] Comment on above: Performed By: #### L 500.2500, L100.0100, L501.4020 #### [facility] [address] [place], [address] CO2 [Moles/Vol] 32.0 mmol/L Normal 21.0-32.0 [facility] Comment on above: Performed By: #### L 500.2500, L100.0100, L501.4020 #### [facility] [address] [place], [address] Creatinine [Mass/Vol] 0.93 mg/dL Normal 0.70-1.30 [facility] Comment on above: Result Comment: The validity of the calculated GFR GFRAA in patients over 70 years has not been determined. Clinical correlation is essential. Performed By: #### L 500.2500, L100.0100, L501.4020 #### [facility] [address] [place], [address] ECRCL 79.11 ml/min Normal [facility] Comment on above: Performed By: #### L 500.2500, L100.0100, L501.4020 #### [facility] [address] [place], [address] EST GFR - AA 105 mL/min Normal >60 [facility] Comment on above: Result Comment: Afri can Guinean GFR Calc Performed By: #### L 500.2500, L100.0100, L501.4020 #### [facility] [address] [place], [address] GAP 6 Normal 5-15 [facility] Comment on above: Performed By: #### L 500.2500, L100.0100, L501.4020 #### [facility] [address] [place], [address] GFR/1.73 sq M.predicted among non-blacks MDRD (S/P/Bld) [Vol rate/Area] 87 mL/min/{1.73_m2} Normal >60 [facility] Comment on above: Result Comment: Non- GFR Calc Performed By: #### L 500.2500, L100.0100, L501.4020 #### [facility] [address] [place], [address] Globulin (S) [Mass/Vol] 3.3 g/dL Normal 2.2-4.2 [facility] Comment on above: Performed By: #### L 500.2500, L100.0100, L501.4020 #### [facility] [address] [place], [address] Glucose [Mass/Vol] 185 mg/dL High 74-106 [facility] Comment on above: Result Comment: Fast ing Glucose result greater than or equal to 126 mg/dL suggests DIABETES MELLITUS per A.D.A. criteria. Performed By: #### L 500.2500, L100.0100, L501.4020 #### [facility] [address] [place], [address] Potassium [Moles/Vol] 4.2 mmol/L Normal 3.5-5.1 [facility] Comment on above: Performed By: #### L 500.2500, L100.0100, L501.4020 #### [facility] [address] [place], [address] Sodium [Moles/Vol] 140 mmol/L Normal 136-145 [facility] Comment on above: Performed By: #### L 500.2500, L100.0100, L501.4020 #### [facility] [address] [place], [address] T PROT 6.2 g/dL Low 6.4-8.2 [facility] Comment on above: Performed By: #### L 500.2500, L100.0100, L501.4020 #### [facility] [address] [place], [address] Urea nitrogen [Mass/Vol] 14 mg/dL Normal 7-18 [facility] Comment on above: Performed By: #### L 500.2500, L100.0100, L501.4020 #### [facility] [address] [place], [address] Eosinophil percentageOrdered By: Noelle Fleming on 05-21-2024 Eosinophils/100 WBC (Bld) 0.1 % 0-5 [facility] Erythrocyte distribution wid th ratioOrdered By: Noelle Bernadette on 05-21-2024 Erythrocyte distribution width (RBC) [Ratio] 13.0 % 11.6-14.6 [facility] Erythrocyte distribution wid th standard deviationOrdered By: Noelle Fleming on 05-21-2024 Erythrocyte distribution width (RBC) [Entitic vol] 46.3 fL High 35.1-43.9 [facility] Estimated glomerular filtrat ion rate (GFR) AmericanOrdered By: Noelle Fleming on 05-21-2024 Estimated GFR (MDRD) Amer 105 mL/min >60 [facility] Comment on above: GFR Calc Estimation of creatinine kehinde aranceOrdered By: Noelle Fleming on 05-21-2024 Estimated Creatinine Clearance Calc 79.11 ml/min [facility] Glomerular filtration rate ( GFR) estimationOrdered By: Noelle Fleming on 05-21-2024 Estimated GFR (MDRD) Non-Af Amer 87 mL/min >60 [facility] Comment on above: Non- GFR Calc Glucose measurementOrdered B y: Noelle Fleming on 05-21-2024 Glucose [Mass/Vol] 185 mg/dL High 74-106 [facility] Comment on above: Fasting Glucose resu lt greater than or equal to 126 mg/dL suggests DIABETES MELLITUS per A.D.A. criteria. Gram stainOrdered By: Noelle Fleming on 05-21-2024 Microscopic observation Gram stain Nom (Unsp spec) [facility] Hematocrit Auto (Bld) [Volum e fraction]Ordered By: Noelle Bernadette on 05-21-2024 Hematocrit (Bld) [Volume fraction] 46.4 % 40-54 [facility] Hemoglobin measurementOrdere d By: on 05-21-2024 Hemoglobin (Bld) [Mass/Vol] 14.7 g/dL 13.0-16.5 [facility] Immature granulocytes/100 WB C Auto (Bld)Ordered By: Noelle Bernadette on 05-21-2024 Immature granulocytes/100 WBC (Bld) 0.100 % 0.0-0.9 [facility] Comment on above: IG% - Immature Granu locytes (promyelocytes, myelocytes and metamyelocytes) > 1% indicates that a LEFT SHIFT is Present. Laboratory - Chemistry and C hemistry - challengeOrdered By: Noelle Bernadette on 05-21-2024 AST [Catalytic activity/Vol] 15 U/L 15-37 [facility] Lymphocytes Auto (Unsp spec) [#/Vol]Ordered By: Noelle Bernadette on 05-21-2024 Lymphocytes (Bld) [#/Vol] 0.40 10*3/uL Low 0.83-4.51 [facility] Lymphocytes/100 WBC Auto (Un sp spec)Ordered By: on 05-21-2024 Lymphocytes/100 WBC (Bld) 4.7 % Low 19-41 [facility] MCV (mean corpuscular volume ) determinationOrdered By: on 05-21-2024 MCV (RBC) [Entitic vol] 96.5 fL High 80-94 [facility] Mean corpuscular hemoglobin (MCH) determinationOrdered By: on 05-21-2024 MCH (RBC) [Entitic mass] 30.6 pg 27.0-32.0 [facility] Mean corpuscular hemoglobin concentration (MCHC) determinationOrdered By: on 05-21-2024 MCHC (RBC) [Mass/Vol] 31.7 g/dL Low 32-36 [facility] Mean platelet volume determi nationOrdered By: Noelle Bernadette on 05-21-2024 Platelet mean volume (Bld) [Entitic vol] 9.3 fL 6.2-12.0 [facility] Microorganism identified Cx Nom (Unsp spec)Ordered By: Noelle Fleming on 05-21-2024 Respiratory Culture Pseudomonas aeruginosa Abnormal [facility] Monocyte percentageOrdered B y: Noelle Bernadette on 05-21-2024 Monocytes/100 WBC (Bld) 0.8 % 0-10 [facility] Neutrophil percentageOrdered By: Bernadette on 05-21-2024 Neutrophils/100 WBC (Bld) 94.1 % High 47-70 [facility] Nucleated red blood cell per centageOrdered By: Noelle Bernadette on 05-21-2024 Nucleated RBC/100 WBC (Bld) [Ratio] 0 % 0-5 [facility] Platelet countOrdered By: Cally Fleming on 05-21-2024 Platelets (Bld) [#/Vol] 272 10*3/uL 150-450 [facility] Potassium measurementOrdered By: Noelle Fleming on 05-21-2024 Potassium [Moles/Vol] 4.2 mmol/L 3.5-5.1 [facility] RBC Auto (Bld) [#/Vol]Ordere d By: Noelle Fleming on 05-21-2024 RBC (Bld) [#/Vol] 4.81 10*6/uL 4.6-6.2 [facility] Serum anion gap measurementO rdered By: Noelle Fleming on 05-21-2024 Anion gap [Moles/Vol] 6 mmol/L 5-15 [facility] Serum globulin measurementOr dered By: Noelle Bernadette on 05-21-2024 Globulin (S) [Mass/Vol] 3.3 g/dL 2.2-4.2 [facility] Serum or plasma alanine augustine otransferase (ALT) measurementOrdered By: Noelle Fleming on 05-21-2024 ALT [Catalytic activity/Vol] 27 U/L 16-61 [facility] Serum or plasma albumin margie urement (mass/volume)Ordered By: Noelle Bernadette on 05-21-2024 Albumin [Mass/Vol] 2.9 g/dL Low 3.2-5.0 [facility] Serum or plasma alkaline jacobo sphatase measurementOrdered By: Noelle Bernadette on 05-21-2024 ALP [Catalytic activity/Vol] 79 U/L 45-117 [facility] Serum or plasma calcium margie urement (mass/volume)Ordered By: Noelle Fleming on 05-21-2024 Calcium [Mass/Vol] 8.9 mg/dL 8.5-10.1 [facility] Serum or plasma creatinine m easurement (mass/volume)Ordered By: Noelle Fleming on 05-21-2024 Creatinine [Mass/Vol] 0.93 mg/dL 0.70-1.30 [facility] Comment on above: The validity of the calculated GFR & GFRAA in patients over 70 years has not been determined. Clinical correlation is essential. Serum or plasma urea nitroge n measurement (mass/volume)Ordered By: Noelle Fleming on 05-21-2024 Urea nitrogen [Mass/Vol] 14 mg/dL 7-18 [facility] Sodium levelOrdered By: Danni mn Bernadette on 05-21-2024 Sodium [Moles/Vol] 140 mmol/L 136-145 [facility] Total proteinOrdered By: Maciel umn Bernadette on 05-21-2024 Protein [Mass/Vol] 6.2 g/dL Low 6.4-8.2 [facility] White blood cell (WBC) count Ordered By: Noelle Fleming on 05-21-2024 WBC (Bld) [#/Vol] 8.5 10*3/uL 4.4-11.0 [facility] 12 Lead EKGon 05-20-2024 12 Lead EKG [facility] Cardiovascular Services [address] [place] [address] 12 Lead EKG 05/20/24 1920 MR#: [id number] Acct: [id number] Name: WOLF TURCIOS Rep #: [id number] : 1960 64 From: Chhaya Lma MD Attending Dr: Dr. Elijah Guerrero, DO Status: DIS MEGAN Ordering Dr: Kunal Stone MD Date: 05/20/24 Location: MS3 Sex: M C Admitted: 05/20/24 Test Reason : CP Blood Pressure : */* mmHG Vent. Rate : 117 BPM Atrial Rate : 117 BPM P-R Int : 134 ms QRS Dur : 86 ms QT Int : 296 ms P-R-T Axes : 80 78 70 degrees QTcB Int : 412 ms Sinus tachycardia Biatrial enlargement Pulmonary disease pattern Abnormal ECG Confirmed by GENARO BOYER, KARINA ([id number]), photo editor YENNY NUNEZ ([id number]) on 05/25/2024 1:34:47 PM Referred By: BB Confirmed By: KARINA LAM MD 05/25/24 1334 Date Chhaya Lam MD CC: Dr. Kunal Stone MD; Dr. Iker Blackwell MD; Dr. Elijah Guerrero, DO Signed Normal [facility] Basic Metabolic Profile (BMP )on 05-20-2024 BUN/CRE 12.9 RATIO Normal 10-20 [facility] Comment on above: Order Comment: 'TROP ' Serial specimen #1, #2 or #3: 1 Performed By: #### L 500.2500, L100.0100, L501.4020 #### [facility] [address] [place], [address] CA,Total 8.6 mg/dL Normal 8.5-10.1 [facility] Comment on above: Order Comment: 'TROP ' Serial specimen #1, #2 or #3: 1 Performed By: #### L 500.2500, L100.0100, L501.4020 #### [facility] [address] [place], [address] Chloride [Moles/Vol] 103 mmol/L Normal 98-107 [facility] Comment on above: Order Comment: 'TROP ' Serial specimen #1, #2 or #3: 1 Performed By: #### L 500.2500, L100.0100, L501.4020 #### [facility] [address] [place], [address] CO2 [Moles/Vol] 35.0 mmol/L High 21.0-32.0 [facility] Comment on above: Order Comment: 'TROP ' Serial specimen #1, #2 or #3: 1 Performed By: #### L 500.2500, L100.0100, L501.4020 #### [facility] [address] [place], [address] Creatinine [Mass/Vol] 0.86 mg/dL Normal 0.70-1.30 [facility] Comment on above: Order Comment: 'TROP ' Serial specimen #1, #2 or #3: 1 Result Comment: The validity of the calculated GFR GFRAA in patients over 70 years has not been determined. Clinical correlation is essential. Performed By: #### L 500.2500, L100.0100, L501.4020 #### [facility] [address] [place], [address] ECRCL 94.88 ml/min Normal [facility] Comment on above: Order Comment: 'TROP ' Serial specimen #1, #2 or #3: 1 Performed By: #### L 500.2500, L100.0100, L501.4020 #### [facility] [address] [place], [address] EST GFR - AA 116 mL/min Normal >60 [facility] Comment on above: Order Comment: 'TROP ' Serial specimen #1, #2 or #3: 1 Result Comment: Afri can Guinean GFR Calc Performed By: #### L 500.2500, L100.0100, L501.4020 #### [facility] [address] [place], [address] GAP 3 Low 5-15 [facility] Comment on above: Order Comment: 'TROP ' Serial specimen #1, #2 or #3: 1 Performed By: #### L 500.2500, L100.0100, L501.4020 #### [facility] [address] [place], [address] GFR/1.73 sq M.predicted among non-blacks MDRD (S/P/Bld) [Vol rate/Area] 96 mL/min/{1.73_m2} Normal >60 [facility] Comment on above: Order Comment: 'TROP ' Serial specimen #1, #2 or #3: 1 Result Comment: Non- GFR Calc Performed By: #### L 500.2500, L100.0100, L501.4020 #### [facility] [address] [place], [address] Glucose [Mass/Vol] 108 mg/dL High 74-106 [facility] Comment on above: Order Comment: 'TROP ' Serial specimen #1, #2 or #3: 1 Result Comment: Fast ing Glucose result from 100 to 125 mg/dL suggests IMPAIRED HOMEOSTASIS per A.D.A. criteria. Performed By: #### L 500.2500, L100.0100, L501.4020 #### [facility] [address] [place], [address] Potassium [Moles/Vol] 3.8 mmol/L Normal 3.5-5.1 [facility] Comment on above: Order Comment: 'TROP ' Serial specimen #1, #2 or #3: 1 Performed By: #### L 500.2500, L100.0100, L501.4020 #### [facility] [address] [place], [address] Sodium [Moles/Vol] 141 mmol/L Normal 136-145 [facility] Comment on above: Order Comment: 'TROP ' Serial specimen #1, #2 or #3: 1 Performed By: #### L 500.2500, L100.0100, L501.4020 #### [facility] [address] [place], [address] Urea nitrogen [Mass/Vol] 11 mg/dL Normal 7-18 [facility] Comment on above: Order Comment: 'TROP ' Serial specimen #1, #2 or #3: 1 Performed By: #### L 500.2500, L100.0100, L501.4020 #### [facility] [address] [place], [address] CBC W/Diff, Automatedon 12 Absolute Lymph 1.85 X10 3/uL Normal 0.83-4.51 [facility] Comment on above: Performed By: #### L 500.2500, L100.0100, L501.4020 #### [facility] [address] [place], [address] Absolute Neut 7.3 X10 3/uL Normal 2.0-7.7 [facility] Comment on above: Performed By: #### L 500.2500, L100.0100, L501.4020 #### [facility] [address] [place], [address] Basophils/100 WBC (Bld) 0.9 % Normal 0-1 [facility] Comment on above: Performed By: #### L 500.2500, L100.0100, L501.4020 #### [facility] [address] [place], [address] Eosinophils/100 WBC (Bld) 3.1 % Normal 0-5 [facility] Comment on above: Performed By: #### L 500.2500, L100.0100, L501.4020 #### [facility] [address] [place], [address] Erythrocyte distribution width (RBC) [Ratio] 13.0 % Normal 11.6-14.6 [facility] Comment on above: Performed By: #### L 500.2500, L100.0100, L501.4020 #### [facility] [address] [place], [address] Hematocrit (Bld) [Volume fraction] 49.3 % Normal 40-54 [facility] Comment on above: Performed By: #### L 500.2500, L100.0100, L501.4020 #### [facility] [address] [place], [address] Hemoglobin (Bld) [Mass/Vol] 16.0 g/dL Normal 13.0-16.5 [facility] Comment on above: Performed By: #### L 500.2500, L100.0100, L501.4020 #### [facility] [address] [place], [address] IG% 0.400 Normal 0.0-0.9 [facility] Comment on above: Result Comment: IG% - Immature Granulocytes (promyelocytes, myelocytes and metamyelocytes) > 1% indicates that a LEFT SHIFT is Present. Performed By: #### L 500.2500, L100.0100, L501.4020 #### [facility] [address] [place], [address] Lymphocytes/100 WBC (Bld) 17.7 % Low 19-41 [facility] Comment on above: Performed By: #### L 500.2500, L100.0100, L501.4020 #### [facility] [address] [place], [address] MCH (RBC) [Entitic mass] 30.8 pg Normal 27.0-32.0 [facility] Comment on above: Performed By: #### L 500.2500, L100.0100, L501.4020 #### [facility] [address] [place], [address] MCHC (RBC) [Mass/Vol] 32.5 g/dL Normal 32-36 [facility] Comment on above: Performed By: #### L 500.2500, L100.0100, L501.4020 #### [facility] [address] [place], [address] MCV (RBC) [Entitic vol] 94.8 fL High 80-94 [facility] Comment on above: Performed By: #### L 500.2500, L100.0100, L501.4020 #### [facility] [address] [place], [address] Monocytes/100 WBC (Bld) 8.6 % Normal 0-10 [facility] Comment on above: Performed By: #### L 500.2500, L100.0100, L501.4020 #### [facility] [address] [place], [address] Neutrophils/100 WBC (Bld) 69.3 % Normal 47-70 [facility] Comment on above: Performed By: #### L 500.2500, L100.0100, L501.4020 #### [facility] [address] [place], [address] Nucleated RBC (Bld) [#/Vol] 0 10*3/uL Normal 0-5 [facility] Comment on above: Performed By: #### L 500.2500, L100.0100, L501.4020 #### [facility] [address] [place], [address] Platelet mean volume (Bld) [Entitic vol] 9.3 fL Normal 6.2-12.0 [facility] Comment on above: Performed By: #### L 500.2500, L100.0100, L501.4020 #### [facility] [address] [place], [address] Platelets (Bld) [#/Vol] 309 10*3/uL Normal 150-450 [facility] Comment on above: Performed By: #### L 500.2500, L100.0100, L501.4020 #### [facility] [address] [place], [address] RBC (Bld) [#/Vol] 5.20 10*6/uL Normal 4.6-6.2 [facility] Comment on above: Performed By: #### L 500.2500, L100.0100, L501.4020 #### [facility] [address] [place], [address] RDW SD 45.9 fl High 35.1-43.9 [facility] Comment on above: Performed By: #### L 500.2500, L100.0100, L501.4020 #### [facility] [address] [place], [address] WBC (Bld) [#/Vol] 10.5 10*3/uL Normal 4.4-11.0 [facility] Comment on above: Performed By: #### L 500.2500, L100.0100, L501.4020 #### [facility] [address] [place], [address] Chest 1 View (Portable)on Chest 1 View (Portable) [facility] Imaging Services [address] [place] [address] Chest 1 View (Portable) MR#: [id number] Acct: [id number] Name: WOLF TURCIOS JrFlorence Rep #: [id number] : 1960 M 64 From: Surya Labru [facility] PCP: Dr. Iker Blackwell MD Status: [facility] ER Study: Chest 1 View (Portable) Date of Exam: 05/20/24 Exam# [id number] Ordering Dr: Kunal Stone MD [id number] EXAM: XR CHEST, 1 VIEW CLINICAL INDICATION: sob TECHNIQUE: Frontal view of the chest. COMPARISON: 05/17/2024 FINDINGS: LUNGS AND PLEURAL SPACES: Patchy ill-defined pulmonary opacities may be in part due to scarring, atelectasis, or perhaps superimposed pneumonia with similar appearance to prior examination. Additionally, diffuse interstitial prominence and hyperinflation suggesting underlying COPD. No pneumothorax. No effusion. HEART: No significant abnormality. Cardiac silhouette not enlarged. MEDIASTINUM: Central airways and mediastinal contour are unremarkable. BONES/JOINTS: No significant abnormality. No acute fracture. SOFT TISSUES: No significant abnormality. RAD/Chest 1 View (Portable) IMPRESSION: Patchy ill-defined pulmonary opacities may be in part due to scarring, atelectasis, or perhaps superimposed pneumonia with similar appearance to prior examination. Additionally, diffuse interstitial prominence and hyperinflation suggesting underlying COPD. Electronically Signed: Surya ReyesharveyjordynDO at 20:46 EST , CC: Dr. Kunal Stone MD; Dr. Iker Blackwell MD Early Childhood Teacher: Signed [facility] Emergency Department Summary on 05-20-2024 Emergency Department Summary [facility] Medical Records Department [address] [place] [address] Emergency Department Summary 05/20/24 MR#: [id number] Acct: [id number] Name: WOLF TURCIOS Jr. Rep #: [id number] : 1960 64 From: Kunal Stone MD PCP: Dr. Iker Blackwell MD Status:REG ER Location: ED HPI History of Present Illness Chief Complaint: Shortness of Breath Informant: patient and EMS Onset/Context/Timing Onset: Today Context: gradual and onset (After he got a shower tonight) Timing: Continuous Quality: Positive for Wheezing Current Severity: Severe Maximum Severity: Severe Worsened by: Nothing Relieved by: Nothing; Not Relieved By Albuterol Associated Symptoms Negative for cough Chest Pain: Positive for Tightness Narrative Narrative: 64-year-old male with COPD was just discharged from this hospital yesterday, admitted for COPD exacerbation, he received his home oxygen today which he has been using, he smokes but not a lot according to him, then he got a shower and after he got his shower he really started getting short of breath despite trying a breathing treatment and resting to the point where he called EMS. [facility] Medical History History of substance use History of alcohol abuse Smoker Emphysema lung Asthma COPD (chronic obstructive pulmonary disease) Coronary artery disease Hypertension Migraines TIA (transient ischemic attack) History of tobacco abuse Adverse reaction to REEMA inhibitor drug History of COPD History of hypertension Home Medications ???Medication ???Instructions ???Recorded ???Last Taken ???Type albuterol sulfate 90 mcg/actuation 1 - 2 puff inhalation Q4H PRN PRN 01/02/24 Unknown Rx aerosol inhaler (Ventolin HFA) Wheezing #1 ea fluticasone fur. 100 mcg-umeclid 1 ea inhalation DAILY breathing 01/21/24 Unknown History 62.5 mcg-vilant 25 mcg inhalat.powder (Trelegy Ellipta) ipratropium 0.5 mg-albuterol 3 mg 1.5 ml inhalation Q8H PRN copd 01/21/24 Unknown History (2.5 mg base)/3 mL nebulization soln loratadine 10 mg tablet (Allergy 10 mg PO Q24H PRN allergy symptoms 01/21/24 Unknown History Relief (loratadine)) omeprazole 20 mg capsule,delayed 20 mg PO DAILY reflux 01/21/24 Unknown History release tamsulosin 0.4 mg capsule 0.4 mg PO DAILY prostate 01/21/24 Unknown History amlodipine 2.5 mg tablet (Norvasc) 2.5 mg PO DAILY bp #30 tabs 01/22/24 Unknown Rx diphenhydramine HCl 25 mg capsule 50 mg (2 x 25 mg) PO TID PRN 01/22/24 Unknown Rx allergic reaction #20 caps cyclobenzaprine 10 mg tablet 10 mg PO BID spasm 05/17/24 Unknown History dextromethorphan-guaifene sin 30 1 tab PO Q12H PRN cough #14 tabs 05/18/24 Unknown Rx mg-600 mg tablet extended [id number] hr (Mucus DM) nystatin 100,000 unit/mL oral 500,000 unit (5 mL) PO 4X/DAY 7 05/18/24 Unknown Rx suspension days #140 mL prednisone 20 mg tablet 40 mg (2 x 20 mg) PO DAILY #10 tabs 05/18/24 Unknown Rx Allergy/AdvReac Type Severity Reaction Status Date / Time lisinopril Allergy Severe Angioedema Verified 05/17/24 15:23 codeine Allergy Mild Itching Verified 05/17/24 15:23 Social History Smoking Status: Light Smoker (<10/day) ROS ROS ED Constitutional Constitutional ED: Denies chills or fever(s) Eyes Eyes: Denies change in vision or diplopia ENT ENT ED: Denies rhinorrhea or sore throat Cardiovascular Cardiovascular: Denies leg edema or palpitations Respiratory/Chest Respiratory/Chest: Reports as per HPI, chest tightness and dyspnea; Denies cough Gastrointestinal Gastrointestinal: Denies abdominal pain, diarrhea, nausea or vomiting Genitourinary Genitourinary ED: Denies dysuria or hematuria Musculoskeletal Musculoskeletal: Denies back pain or neck pain Integumentary Denies abscess or rash Neurologic Neurologic: Denies headache(s), paresthesias or weakness Psychiatric Psychiatric: Reports anxiety EXAM Physical Exam Const Vital Signs: 05/20/24 19:19 05/20/24 19:35 05/20/24 19:36 Temperature 98.2 F 98.2 F Temperature Source Oral Oral Pulse Rate 118 H 113 H Respiratory Rate 24 H 24 H Respiratory Effort Respiratory Depth Respiratory Pattern Blood Pressure 159/102 H 121/89 H Blood Pressure Mean 121 99 Pulse Ox 94 98 98 Oxygen Delivery Method Nasal Cannula Nasal Cannula Nasal Cannula Oxygen Flow Rate (L/min) 5 5 5 05/20/24 19:38 05/20/24 19:50 05/20/24 20:31 Temperature Temperature Source Pulse Rate 107 H 110 H Respiratory Rate 26 H 22 H Respiratory Effort Short of Breath Labored Accessory Muscle Use Respiratory Depth Deep Respiratory Pattern Tachypnea Tachypnea Blood Pressure 126/85 H B (more content not included)... [facility] H AND P Exam - [facility] 05-20-2024 H&P Exam - Hospitalist [facility] Medical Records Department [address] [place] [address] H P Exam - Hospitalist 05/20/242 MR#: [id number] Acct: [id number] Name: WOLF TURCIOS JrFlorence Rep #: [id number] : 1960 64 From: Noelle Fleming MD PCP: Dr. Iker Blackwell MD Status:ADM MEGAN Location: [place] [address] HPI - General General Date of Admission: 05/20/24 Date of Service: 05/20/24 Chief Complaint: Dyspnea, cough, wheezing. HPI Narrative The patient is a 64 y/o M w/ PMHx: Hx prior polysubstance abuse (crack cocaine primarily) now clean, Hx former EtOH abuse now sober, Hx TIA, Asthma/COPD, HTN, BPH with obstructive pathology on flomax, GERD, Tobacco use, recent discharge 05/18/2024 following evaluation treatment of acute hypoxia with underlying COPD exacerbation discharged on 2 L nasal cannula with a burst of prednisone therapy who now Wade presents to the [facility] ED on 05/20/2024 with history of gradually worsening dyspnea following a shower on the evening of day of presentation with significant wheezing with no improvement with albuterol described as a chest tightness prompting eventual EMS given inability to improve his symptoms. He does admit to smoking since discharge but notes he only did 1-2 cigarettes and is trying to quit. Workup in the ED included T98.2, heart rate 118, BP 159/102, respiratory rate 24, 94% on 5 L nasal cannula with most recent oxygenation requirements noted to be 2 L nasal cannula on 05/18/2024 with most recent repeat vitals heart rate 105, BP 118/92, respiratory rate 22, 98% on 2.5 L nasal cannula, CBC with WBC 10.5, human 16, platelets 309 without marked shift, BNP not marked appearing aside from complex at 35, glucose 108, troponin 6, chest x-ray with patchy ill-defined pulmonary opacities partly due to scarring, atelectasis or possibly superimposed pneumonia with similar appearance however the prior exam additionally diffuse interstitial prominence and hyperinflation suggestive of underlying COPD. In the ED patient treated with nebulizer treatments as well as subcutaneous terbutaline with some improvement however in the ED he did have productive sputum but did have some improvement and seem to decrease his oxygenation requirement down near to what he did previously but he was apprehensive about discharge and notes living alone. [facility] Medical History History of substance use History of alcohol abuse Smoker Emphysema lung Asthma COPD (chronic obstructive pulmonary disease) Hypertension Migraines TIA (transient ischemic attack) Adverse reaction to REEMA inhibitor drug Home Medications ???Medication ???Instructions ???Recorded ???Last Taken ???Type albuterol sulfate 90 mcg/actuation 1 - 2 puff inhalation Q4H PRN PRN 01/02/24 Unknown Rx aerosol inhaler (Ventolin HFA) Wheezing #1 ea fluticasone fur. 100 mcg-umeclid 1 ea inhalation DAILY breathing 01/21/24 Unknown History 62.5 mcg-vilant 25 mcg inhalat.powder (Trelegy Ellipta) ipratropium 0.5 mg-albuterol 3 mg 1.5 ml inhalation Q8H PRN copd 01/21/24 Unknown History (2.5 mg base)/3 mL nebulization soln loratadine 10 mg tablet (Allergy 10 mg PO Q24H PRN allergy symptoms 01/21/24 Unknown History Relief (loratadine)) omeprazole 20 mg capsule,delayed 20 mg PO DAILY reflux 01/21/24 Unknown History release tamsulosin 0.4 mg capsule 0.4 mg PO DAILY prostate 01/21/24 Unknown History amlodipine 2.5 mg tablet (Norvasc) 2.5 mg PO DAILY bp #30 tabs 01/22/24 Unknown Rx diphenhydramine HCl 25 mg capsule 50 mg (2 x 25 mg) PO TID PRN 01/22/24 Unknown Rx allergic reaction #20 caps cyclobenzaprine 10 mg tablet 10 mg PO BID spasm 05/17/24 Unknown History dextromethorphan-guaifene sin 30 1 tab PO Q12H PRN cough #14 tabs 05/18/24 Unknown Rx mg-600 mg tablet extended [id number] hr (Mucus DM) nystatin 100,000 unit/mL oral 500,000 unit (5 mL) PO 4X/DAY 7 05/18/24 Unknown Rx suspension days #140 mL prednisone 20 mg tablet 40 mg (2 x 20 mg) PO DAILY #10 tabs 05/18/24 Unknown Rx Allergy/AdvReac Type Severity Reaction Status Date / Time lisinopril Allergy Severe Angioedema Verified 05/17/24 15:23 codeine Allergy Mild Itching Verified 05/17/24 15:23 Family History (Updated 05/20/24 @ 22:[address] Noelle Fleming MD) Mother Uterine cancer Father ETOH abuse Surgical History History of testicular surgery History of gastric surgery History of bilateral inguinal hernia repair History of total right hip replacement Social History (Updated 05/20/24 @ 22:[address] Noelle Fleming MD) household members: other details: His daugher and his grandson live with him. Smoking Status: Light Smoker (<10/day) how long ago did patient quit smoking: Patient prior smoked up to 2 ppd, started at (more content not included)... [facility] L501.4020on 05-20-2024 TROPONIN-I HS 6 pg/mL Normal 3.0-78.0 [facility] Comment on above: Order Comment: 'TROP ' Serial specimen #1, #2 or #3: 1 Result Comment: Elva acosta Note: New Test Units and Gender Specific Reference Ranges. For more information see Policy Stat Procedure Poth High Sensitivity Troponin (TNIH) and attachments. Performed By: #### L 500.2500, L100.0100, L501.4020 #### [facility] [address] [place], [address] Respiratory Cultureon 2023 RESPC List Antibiotics Las t 48 Hours? none List Antibiotics to be Started? none Pseudomonas aeruginosa Amount Growth 1+ Pseudomonas aeruginosa: REACTION Aztreonam Islt KB 20 I Pseudomonas aeruginosa: REACTION Amikacin Islt RAFAELA 4 S Cefepime Islt RAFAELA 2 S Ciprofloxacin Islt RAFAELA <=0.06 S Imipenem Islt RAFAELA 2 S levoFLOXacin Islt RAFAELA <=0.12 S Meropenem Islt RAFAELA 1 S Pip+Tazo Islt RAFAELA 8 S Tobramycin Islt RAFAELA <=1 S Normal [facility] Comment on above: Performed By: #### L 503.6620 #### [facility] [address] [place], [address] Troponin IOrdered By: Iza Stone on 05-20-2024 Troponin I High Sensitivity 6 pg/mL 3.0-78.0 [facility] Comment on above: Please Note: New Melvin t Units and Gender Specific Reference Ranges. For more information see Policy Stat Procedure Poth High Sensitivity Troponin (TNIH) and attachments. Basic Metabolic Profile (BMP )on 05-18-2024 BUN/CRE 14.3 RATIO Normal - [facility] Comment on above: Performed By: #### L 500.2500, L100.0100, L501.4020 #### [facility] [address] [place], [address] CA,Total 9.2 mg/dL Normal 8.5-10.1 [facility] Comment on above: Performed By: #### L 500.2500, L100.0100, L501.4020 #### [facility] [address] [place], [address] Chloride [Moles/Vol] 104 mmol/L Normal 98-107 [facility] Comment on above: Performed By: #### L 500.2500, L100.0100, L501.4020 #### [facility] [address] [place], [address] CO2 [Moles/Vol] 29.0 mmol/L Normal 21.0-32.0 [facility] Comment on above: Performed By: #### L 500.2500, L100.0100, L501.4020 #### [facility] [address] [place], [address] Creatinine [Mass/Vol] 0.98 mg/dL Normal 0.70-1.30 [facility] Comment on above: Result Comment: The validity of the calculated GFR GFRAA in patients over 70 years has not been determined. Clinical correlation is essential. Performed By: #### L 500.2500, L100.0100, L501.4020 #### [facility] [address] [place], [address] ECRCL 73.67 ml/min Normal [facility] Comment on above: Performed By: #### L 500.2500, L100.0100, L501.4020 #### [facility] [address] [place], [address] EST GFR - AA 99 mL/min Normal >60 [facility] Comment on above: Result Comment: Afri can Guinean GFR Calc Performed By: #### L 500.2500, L100.0100, L501.4020 #### [facility] [address] [place], [address] GAP 6 Normal 5-15 [facility] Comment on above: Performed By: #### L 500.2500, L100.0100, L501.4020 #### [facility] [address] [place], [address] GFR/1.73 sq M.predicted among non-blacks MDRD (S/P/Bld) [Vol rate/Area] 82 mL/min/{1.73_m2} Normal >60 [facility] Comment on above: Result Comment: Non- GFR Calc Performed By: #### L 500.2500, L100.0100, L501.4020 #### [facility] [address] [place], [address] Glucose [Mass/Vol] 258 mg/dL High 74-106 [facility] Comment on above: Result Comment: Gluc ose result greater than or equal to 200 mg/dL suggests DIABETES MELLITUS per A.D.A. criteria. Performed By: #### L 500.2500, L100.0100, L501.4020 #### [facility] [address] [place], [address] Potassium [Moles/Vol] 3.8 mmol/L Normal 3.5-5.1 [facility] Comment on above: Performed By: #### L 500.2500, L100.0100, L501.4020 #### [facility] [address] [place], [address] Sodium [Moles/Vol] 139 mmol/L Normal 136-145 [facility] Comment on above: Performed By: #### L 500.2500, L100.0100, L501.4020 #### [facility] [address] [place], [address] Urea nitrogen [Mass/Vol] 14 mg/dL Normal 7-18 [facility] Comment on above: Performed By: #### L 500.2500, L100.0100, L501.4020 #### [facility] [address] [place], [address] Blood urea nitrogen (BUN)/cr eatinine ratioOrdered By: Nicolas Hall on 05-18-2024 Urea nitrogen/Creatinine [Mass ratio] 14.3 mg/mg 10- [facility] CBC-Complete Blood Cnt No Di ffon 05-18-2024 Erythrocyte distribution width (RBC) [Ratio] 12.6 % Normal 11.6-14.6 [facility] Comment on above: Performed By: #### L 500.2500, L100.0100, L501.4020 #### [facility] [address] [place], [address] Hematocrit (Bld) [Volume fraction] 46.1 % Normal 40-54 [facility] Comment on above: Performed By: #### L 500.2500, L100.0100, L501.4020 #### [facility] [address] [place], [address] Hemoglobin (Bld) [Mass/Vol] 14.8 g/dL Normal 13.0-16.5 [facility] Comment on above: Performed By: #### L 500.2500, L100.0100, L501.4020 #### [facility] [address] [place], [address] MCH (RBC) [Entitic mass] 30.5 pg Normal 27.0-32.0 [facility] Comment on above: Performed By: #### L 500.2500, L100.0100, L501.4020 #### [facility] [address] [place], [address] MCHC (RBC) [Mass/Vol] 32.1 g/dL Normal 32-36 [facility] Comment on above: Performed By: #### L 500.2500, L100.0100, L501.4020 #### [facility] [address] [place], [address] MCV (RBC) [Entitic vol] 94.9 fL High 80-94 [facility] Comment on above: Performed By: #### L 500.2500, L100.0100, L501.4020 #### [facility] [address] [place], [address] Platelet mean volume (Bld) [Entitic vol] 9.5 fL Normal 6.2-12.0 [facility] Comment on above: Performed By: #### L 500.2500, L100.0100, L501.4020 #### [facility] [address] [place], [address] Platelets (Bld) [#/Vol] 271 10*3/uL Normal 150-450 [facility] Comment on above: Performed By: #### L 500.2500, L100.0100, L501.4020 #### [facility] [address] [place], [address] RBC (Bld) [#/Vol] 4.86 10*6/uL Normal 4.6-6.2 [facility] Comment on above: Performed By: #### L 500.2500, L100.0100, L501.4020 #### [facility] [address] [place], [address] RDW SD 44.6 fl High 35.1-43.9 [facility] Comment on above: Performed By: #### L 500.2500, L100.0100, L501.4020 #### [facility] [address] [place], [address] WBC (Bld) [#/Vol] 9.5 10*3/uL Normal 4.4-11.0 [facility] Comment on above: Performed By: #### L 500.2500, L100.0100, L501.4020 #### [facility] [address] [place], [address] Carbon dioxide measurementOr dered By: Nicolas Hall on 05-18-2024 CO2 [Moles/Vol] 29.0 mmol/L 21.0-32.0 [facility] Chloride measurementOrdered By: Nicolas Hall on 05-18-2024 Chloride [Moles/Vol] 104 mmol/L 98-107 [facility] Erythrocyte distribution wid th ratioOrdered By: Nicolas Hall on 05-18-2024 Erythrocyte distribution width (RBC) [Ratio] 12.6 % 11.6-14.6 [facility] Erythrocyte distribution wid th standard deviationOrdered By: Nicolas Hall on 05-18-2024 Erythrocyte distribution width (RBC) [Entitic vol] 44.6 fL High 35.1-43.9 [facility] Estimated glomerular filtrat ion rate (GFR) AmericanOrdered By: Nicolas Hall on 05-18-2024 Estimated GFR (MDRD) Amer 99 mL/min >60 [facility] Comment on above: GFR Calc Estimation of creatinine kehinde aranceOrdered By: Nicolas Hall on 05-18-2024 Estimated Creatinine Clearance Calc 73.67 ml/min [facility] Glomerular filtration rate ( GFR) estimationOrdered By: Nicolas Hall on 05-18-2024 Estimated GFR (MDRD) Non-Af Amer 82 mL/min >60 [facility] Comment on above: Non- GFR Calc Glucose measurementOrdered B y: Nicolas Hall on 05-18-2024 Glucose [Mass/Vol] 258 mg/dL High 74-106 [facility] Comment on above: Glucose result great er than or equal to 200 mg/dLsuggests DIABETES MELLITUS per A.D.A. criteria. Gram Stainon 05-18-2024 GS List Antibiotics Las t 48 Hours? none List Antibiotics to be Started? none Acceptable Specimen? Yes (<25 Epithelial cells per/lpf) Gram Stain 2+ White Blood Cells Rare Gram negative rods No Epithelial cells Normal [facility] Comment on above: Performed By: #### L 503.6640 #### [facility] [address] [place], [address] Hematocrit Auto (Bld) [Volum e fraction]Ordered By: Nicolas Hall on 05-18-2024 Hematocrit (Bld) [Volume fraction] 46.1 % 40-54 [facility] Hemoglobin measurementOrdere d By: Nicolas Hall on 05-18-2024 Hemoglobin (Bld) [Mass/Vol] 14.8 g/dL 13.0-16.5 [facility] MCV (mean corpuscular volume ) determinationOrdered By: Nicolas Hall on 05-18-2024 MCV (RBC) [Entitic vol] 94.9 fL High 80-94 [facility] Mean corpuscular hemoglobin (MCH) determinationOrdered By: Nicolas Hall on 05-18-2024 MCH (RBC) [Entitic mass] 30.5 pg 27.0-32.0 [facility] Mean corpuscular hemoglobin concentration (MCHC) determinationOrdered By: Nicolas Hall on 05-18-2024 MCHC (RBC) [Mass/Vol] 32.1 g/dL 32-36 [facility] Mean platelet volume determi nationOrdered By: Nicolas Hall on 05-18-2024 Platelet mean volume (Bld) [Entitic vol] 9.5 fL 6.2-12.0 [facility] Platelet countOrdered By: Jamaal Hall on 05-18-2024 Platelets (Bld) [#/Vol] 271 10*3/uL 150-450 [facility] Potassium measurementOrdered By: Nicolas Hall on 05-18-2024 Potassium [Moles/Vol] 3.8 mmol/L 3.5-5.1 [facility] RBC Auto (Bld) [#/Vol]Ordere d By: Nicolas Hall on 05-18-2024 RBC (Bld) [#/Vol] 4.86 10*6/uL 4.6-6.2 [facility] Serum anion gap measurementO rdered By: Nicolas Hall on 05-18-2024 Anion gap [Moles/Vol] 6 mmol/L 5-15 [facility] Serum or plasma calcium margie urement (mass/volume)Ordered By: Nicolas Hall on 05-18-2024 Calcium [Mass/Vol] 9.2 mg/dL 8.5-10.1 [facility] Serum or plasma creatinine m easurement (mass/volume)Ordered By: Nicolas Hall on 05-18-2024 Creatinine [Mass/Vol] 0.98 mg/dL 0.70-1.30 [facility] Comment on above: The validity of the calculated GFR & GFRAA in patients over 70 years has not been determined. Clinical correlation is essential. Serum or plasma urea nitroge n measurement (mass/volume)Ordered By: Nicolas Hall on 05-18-2024 Urea nitrogen [Mass/Vol] 14 mg/dL 7-18 [facility] Sodium levelOrdered By: Angel Hall on 05-18-2024 Sodium [Moles/Vol] 139 mmol/L 136-145 [facility] White blood cell (WBC) count Ordered By: Nicolas Hall on 05-18-2024 WBC (Bld) [#/Vol] 9.5 10*3/uL 4.4-11.0 [facility] 12 Lead EKGon 05-17-2024 12 Lead EKG [facility] Cardiovascular Services [address] [place] [address] 12 Lead EKG 05/17/24 1534 MR#: [id number] Acct: [id number] Name: WOLF TURCIOS Jr. Rep #: [id number] : 1960 64 From: Rohit Hyman MD Attending Dr: Dr. Elijah Guerrero DO Status: ADM IN Ordering Dr: Dior Candelaria DO Date: 05/17/24 Location: [facility] Sex: M C Admitted: 05/17/24 Test Reason : SOB Blood Pressure : */* mmHG Vent. Rate : 90 BPM Atrial Rate : 90 BPM P-R Int : 150 ms QRS Dur : 90 ms QT Int : 346 ms P-R-T Axes : 65 42 46 degrees QTcB Int : 423 ms Sinus rhythm with Premature atrial complexes Anterior infarct (cited on or before 02-Jan-2024) Abnormal ECG Confirmed by ROHIT HYMAN MD ([id number]), photo editor HAMILTON JUAREZ ([id number]) on 05/18/2024 11:40:35 AM Referred By: Confirmed By: ROHIT HYMAN MD 05/18/24 1140 Date Rohit Hyman MD CC: Dr. Iker Blackwell MD; Dr. Elijah Guerrero DO; Dr. Dior Candelaria DO Signed Normal [facility] Absolute neutrophil countOrd ered By: Dior Candelaria on 05-17-2024 Neutrophils (Bld) [#/Vol] 5.9 10*3/uL 2.0-7.7 [facility] Basic Metabolic Profile (BMP )on 05-17-2024 BUN/CRE 11.3 RATIO Normal -20 [facility] Comment on above: Order Comment: 'TROP ' Serial specimen #1, #2 or #3: 1 Performed By: #### L 500.2500, L100.0100, L501.4020 #### [facility] [address] [place], [address] CA,Total 9.2 mg/dL Normal 8.5-10.1 [facility] Comment on above: Order Comment: 'TROP ' Serial specimen #1, #2 or #3: 1 Performed By: #### L 500.2500, L100.0100, L501.4020 #### [facility] [address] [place], [address] Chloride [Moles/Vol] 105 mmol/L Normal 98-107 [facility] Comment on above: Order Comment: 'TROP ' Serial specimen #1, #2 or #3: 1 Performed By: #### L 500.2500, L100.0100, L501.4020 #### [facility] [address] [place], [address] CO2 [Moles/Vol] 31.0 mmol/L Normal 21.0-32.0 [facility] Comment on above: Order Comment: 'TROP ' Serial specimen #1, #2 or #3: 1 Performed By: #### L 500.2500, L100.0100, L501.4020 #### [facility] [address] [place], [address] Creatinine [Mass/Vol] 0.71 mg/dL Normal 0.70-1.30 [facility] Comment on above: Order Comment: 'TROP ' Serial specimen #1, #2 or #3: 1 Result Comment: The validity of the calculated GFR GFRAA in patients over 70 years has not been determined. Clinical correlation is essential. Performed By: #### L 500.2500, L100.0100, L501.4020 #### [facility] [address] [place], [address] ECRCL 107.34 ml/min Normal [facility] Comment on above: Order Comment: 'TROP ' Serial specimen #1, #2 or #3: 1 Performed By: #### L 500.2500, L100.0100, L501.4020 #### [facility] [address] [place], [address] EST GFR - AA 143 mL/min Normal >60 [facility] Comment on above: Order Comment: 'TROP ' Serial specimen #1, #2 or #3: 1 Result Comment: Afri can Guinean GFR Calc Performed By: #### L 500.2500, L100.0100, L501.4020 #### [facility] [address] [place], [address] GAP 4 Low 5-15 [facility] Comment on above: Order Comment: 'TROP ' Serial specimen #1, #2 or #3: 1 Performed By: #### L 500.2500, L100.0100, L501.4020 #### [facility] [address] [place], [address] GFR/1.73 sq M.predicted among non-blacks MDRD (S/P/Bld) [Vol rate/Area] 119 mL/min/{1.73_m2} Normal >60 [facility] Comment on above: Order Comment: 'TROP ' Serial specimen #1, #2 or #3: 1 Result Comment: Non- GFR Calc Performed By: #### L 500.2500, L100.0100, L501.4020 #### [facility] [address] [place], [address] Glucose [Mass/Vol] 95 mg/dL Normal 74-106 [facility] Comment on above: Order Comment: 'TROP ' Serial specimen #1, #2 or #3: 1 Performed By: #### L 500.2500, L100.0100, L501.4020 #### [facility] [address] [place], [address] Potassium [Moles/Vol] 3.9 mmol/L Normal 3.5-5.1 [facility] Comment on above: Order Comment: 'TROP ' Serial specimen #1, #2 or #3: 1 Performed By: #### L 500.2500, L100.0100, L501.4020 #### [facility] [address] [place], [address] Sodium [Moles/Vol] 140 mmol/L Normal 136-145 [facility] Comment on above: Order Comment: 'TROP ' Serial specimen #1, #2 or #3: 1 Performed By: #### L 500.2500, L100.0100, L501.4020 #### [facility] [address] [place], [address] Urea nitrogen [Mass/Vol] 8 mg/dL Normal 7-18 [facility] Comment on above: Order Comment: 'TROP ' Serial specimen #1, #2 or #3: 1 Performed By: #### L 500.2500, L100.0100, L501.4020 #### [facility] [address] [place], [address] Basophil percentageOrdered B y: Remus Ungur on 05-17-2024 Basophils/100 WBC (Bld) 1.0 % 0-1 [facility] Blood cultureOrdered By: Rem us Ungur on 05-17-2024 Bacteria identified Cx Nom (Bld) No growth in 5 days. [facility] CBC W/Diff, Automatedon 12-1 0-4 Absolute Lymph 1.77 X10 3/uL Normal 0.83-4.51 [facility] Comment on above: Performed By: #### L 500.2500, L100.0100, L501.4020 #### [facility] [address] [place], [address] Absolute Neut 5.9 X10 3/uL Normal 2.0-7.7 [facility] Comment on above: Performed By: #### L 500.2500, L100.0100, L501.4020 #### [facility] [address] [place], [address] Basophils/100 WBC (Bld) 1.0 % Normal 0-1 [facility] Comment on above: Performed By: #### L 500.2500, L100.0100, L501.4020 #### [facility] [address] [place], [address] Eosinophils/100 WBC (Bld) 5.5 % High 0-5 [facility] Comment on above: Performed By: #### L 500.2500, L100.0100, L501.4020 #### [facility] [address] [place], [address] Erythrocyte distribution width (RBC) [Ratio] 12.6 % Normal 11.6-14.6 [facility] Comment on above: Performed By: #### L 500.2500, L100.0100, L501.4020 #### [facility] [address] [place], [address] Hematocrit (Bld) [Volume fraction] 49.6 % Normal 40-54 [facility] Comment on above: Performed By: #### L 500.2500, L100.0100, L501.4020 #### [facility] [address] [place], [address] Hemoglobin (Bld) [Mass/Vol] 15.5 g/dL Normal 13.0-16.5 [facility] Comment on above: Performed By: #### L 500.2500, L100.0100, L501.4020 #### [facility] [address] [place], [address] IG% 0.200 Normal 0.0-0.9 [facility] Comment on above: Result Comment: IG% - Immature Granulocytes (promyelocytes, myelocytes and metamyelocytes) > 1% indicates that a LEFT SHIFT is Present. Performed By: #### L 500.2500, L100.0100, L501.4020 #### [facility] [address] [place], [address] Lymphocytes/100 WBC (Bld) 19.6 % Normal 19-41 [facility] Comment on above: Performed By: #### L 500.2500, L100.0100, L501.4020 #### [facility] [address] [place], [address] MCH (RBC) [Entitic mass] 30.1 pg Normal 27.0-32.0 [facility] Comment on above: Performed By: #### L 500.2500, L100.0100, L501.4020 #### [facility] [address] [place], [address] MCHC (RBC) [Mass/Vol] 31.3 g/dL Low 32-36 [facility] Comment on above: Performed By: #### L 500.2500, L100.0100, L501.4020 #### [facility] [address] [place], [address] MCV (RBC) [Entitic vol] 96.3 fL High 80-94 [facility] Comment on above: Performed By: #### L 500.2500, L100.0100, L501.4020 #### [facility] [address] [place], [address] Monocytes/100 WBC (Bld) 8.1 % Normal 0-10 [facility] Comment on above: Performed By: #### L 500.2500, L100.0100, L501.4020 #### [facility] [address] [place], [address] Neutrophils/100 WBC (Bld) 65.6 % Normal 47-70 [facility] Comment on above: Performed By: #### L 500.2500, L100.0100, L501.4020 #### [facility] [address] [place], [address] Nucleated RBC (Bld) [#/Vol] 0 10*3/uL Normal 0-5 [facility] Comment on above: Performed By: #### L 500.2500, L100.0100, L501.4020 #### [facility] [address] [place], [address] Platelet mean volume (Bld) [Entitic vol] 9.4 fL Normal 6.2-12.0 [facility] Comment on above: Performed By: #### L 500.2500, L100.0100, L501.4020 #### [facility] [address] [place], [address] Platelets (Bld) [#/Vol] 280 10*3/uL Normal 150-450 [facility] Comment on above: Performed By: #### L 500.2500, L100.0100, L501.4020 #### [facility] [address] [place], [address] RBC (Bld) [#/Vol] 5.15 10*6/uL Normal 4.6-6.2 [facility] Comment on above: Performed By: #### L 500.2500, L100.0100, L501.4020 #### [facility] [address] [place], [address] RDW SD 45.3 fl High 35.1-43.9 [facility] Comment on above: Performed By: #### L 500.2500, L100.0100, L501.4020 #### [facility] [address] [place], [address] WBC (Bld) [#/Vol] 9.0 10*3/uL Normal 4.4-11.0 [facility] Comment on above: Performed By: #### L 500.2500, L100.0100, L501.4020 #### [facility] [address] [place], [address] Chest 1 View (Portable)on Chest 1 View (Portable) [facility] Imaging Services [address] [place] [address] Chest 1 View (Portable) MR#: [id number] Acct: [id number] Name: KAROLINAWOLF MOORE Rep #: [id number] : 1960 M 64 From: Reji Camilo MD PCP: Dr. Iker Blackwell MD Status: REG ER Study: Chest 1 View (Portable) Date of Exam: 05/17/24 Exam# [id number] Ordering Dr: Dior Candelaria DO [id number] STUDY: X-RAY CHEST REASON FOR EXAM: Male, 64 years old. dyspnea TECHNIQUE: AP portable COMPARISON: January 02, 2024 FINDINGS: Diffuse chronic interstitial and emphysematous changes. Focal scarring [In the superior segment of left lower lobe. Minor discoid atelectasis in left lower lobe There is no demonstrated pleural abnormality. Normal size heart. Normal mediastinum and gretchen. Normal visualized pulmonary arteries. Normal visualized aortic arch and descending thoracic aorta. Normal visualized thoracic spine. Normal visualized ribs, clavicles, and shoulders. There is no demonstrated abnormality of the visualized soft tissue structures of the upper abdomen. RAD/Chest 1 View (Portable) IMPRESSION: Chronic interstitial and emphysematous changes with focal scarring in left lower lobe Discoid atelectasis at left base which is new finding since prior study.. Electronically Signed: Reji Camilo MD at 16:44 EST , CC: Dr. Iker Blackwell MD; Dr. 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 Rep #: [id number] : 1960 64 From: Dior Candelaria DO PCP: Dr. Iker Blackwell MD Status:ADM IN Location: [place] [address] HPI History of Present Illness Chief Complaint: Shortness of Breath Detail of Chief Complaint: Shortness of breath Informant: patient Narrative Narrative: Patient presents to the emergency department via EMS from home with increased shortness of breath over the last 3 days. He does have a cough is mostly nonproductive but at times brings up some white phlegm. He denies fevers or chills or sweats. He does have history of COPD and is on 3-1/2 L at night when he sleeps. Denies sick contacts. Patient denies recent travel or surgery. No history of PE or DVT. Complains of chest soreness from coughing. [facility] Medical History (Updated 05/17/24 @ 17:[address] Dior Candelaria DO) History of tobacco abuse Adverse reaction to REEMA inhibitor drug History of COPD History of hypertension Home Medications ???Medication ???Instructions ???Recorded ???Last Taken ???Type albuterol sulfate 90 mcg/actuation 1 - 2 puff inhalation Q4H PRN PRN 01/02/24 Unknown Rx aerosol inhaler (Ventolin HFA) Wheezing #1 ea fluticasone fur. 100 mcg-umeclid 1 ea inhalation DAILY breathing 01/21/24 Unknown History 62.5 mcg-vilant 25 mcg inhalat.powder (Trelegy Ellipta) ipratropium 0.5 mg-albuterol 3 mg 1.5 ml inhalation copd 01/21/24 Unknown History (2.5 mg base)/3 mL nebulization soln loratadine 10 mg tablet (Allergy 10 mg PO Q24H PRN allergy symptoms 01/21/24 Unknown History Relief (loratadine)) omeprazole 20 mg capsule,delayed 20 mg PO DAILY reflux 01/21/24 Unknown History release tamsulosin 0.4 mg capsule 0.4 mg PO DAILY prostate 01/21/24 Unknown History amlodipine 2.5 mg tablet (Norvasc) 2.5 mg PO DAILY #30 tabs 01/22/24 Unknown Rx diphenhydramine HCl 25 mg capsule 50 mg (2 x 25 mg) PO TID PRN 01/22/24 Unknown Rx allergic reaction #20 caps famotidine 20 mg tablet 20 mg PO DAILY #5 tabs 01/22/24 Unknown Rx prednisone 20 mg tablet 40 mg (2 x 20 mg) PO DAILY #10 tabs 01/22/24 Unknown Rx Allergy/AdvReac Type Severity Reaction Status Date / Time lisinopril Allergy Severe Angioedema Verified 05/17/24 15:23 codeine Allergy Mild Itching Verified 05/17/24 15:23 Social History Smoking Status: Light Smoker (<10/day) ROS ROS ED Review of Systems ROS Unobtainable: other Constitutional Constitutional ED: Reports lethargy; Denies chills, fever(s), sweats or weight loss Eyes Eyes: Denies blurry vision, change in vision or diplopia ENT ENT ED: Denies rhinorrhea or sore throat Cardiovascular Cardiovascular: Reports chest pain; Denies orthopnea or racing heartbeat Respiratory/Chest Respiratory/Chest: Reports cough, dyspnea and dyspnea on exertion; Denies orthopnea or sputum Gastrointestinal Gastrointestinal: Denies abdominal pain, diarrhea, nausea or vomiting Genitourinary Genitourinary ED: Denies dysuria, hematuria or urinary frequency Musculoskeletal Musculoskeletal: Denies arthralgias, back pain, myalgias or neck pain Integumentary Denies abscess, Abrasions or rash Neurologic Neurologic: Denies headache(s) or weakness Psychiatric Psychiatric: Denies anxiety, depression or suicidal thoughts Endocrine Endocrinology: Denies polydipsia, polyphagia or polyuria Hematologic/Lymphatic Hematologic/Lymphatic: Denies easy bleeding, easy bruising or lymphadenopathy Allergic/Immunologic Allergic/Immunologic ED: Denies mouth swelling, tongue swelling or urticaria EXAM Physical Exam Const Vital Signs: 05/17/24 15:19 05/17/24 15:22 05/17/24 15:23 Temperature 98.4 F 98.4 F Temperature Source Oral Oral Pulse Rate 92 99 Respiratory Rate 25 H 22 H Respiratory Effort Short of Breath Respiratory Depth Shallow Respiratory Pattern Tachypnea Blood Pressure 143/97 H 143/97 H Blood Pressure Mean 112 112 Pulse Ox 95 96 Oxygen Delivery Method Room Air Room Air Room Air 05/17/24 15:40 05/17/24 15:59 05/17/24 16:22 Temperature 98.2 F Temperature Source Oral Pulse Rate 92 97 Respiratory Rate 17 16 Respiratory Effort Respiratory Depth Respiratory Pattern Normal Blood Pressure 155/106 H Blood Pressure Mean 122 Pulse Ox 96 94 Oxygen Delivery Method Room Air Room Air Positive well nourished and well developed General Appearance ED: well developed and NAD HEENT Reports TM's clear and moist mucous membranes normocephalic and atraumatic; Negative for trauma or tenderness Tympanic Membrane ED: Yes TM's clear Eyes (more content not included)... Normal [facility] Eosinophil percentageOrdered By: Dior Candelaria on 05-17-2024 Eosinophils/100 WBC (Bld) 5.5 % High 0-5 [facility] Gram stainOrdered By: Julia Nye on 05-17-2024 Microscopic observation Gram stain Nom (Unsp spec) [facility] H AND P Exam - Hospitaliston 05-17-2024 H&P Exam - Hospitalist [facility] Medical Records Department [address] [place] [address] H P Exam - Hospitalist 05/17/24 1716 MR#: [id number] Acct: [id number] Name: WOLF TURCIOS Jr. Rep #: [id number] : 1960 64 From: Nicolas Hall DO PCP: Dr. Iker Blackwell MD Status:ADM IN Location: MS3 [id number] HPI - General General Date of Admission: 05/17/24 Date of Service: 05/17/24 Chief Complaint: Worsening shortness of breath HPI Narrative WOLF TURCIOS, is a 64 M who presented to [facility] ED on 05/17/2024 with worsening shortness of breath. Patient has history of COPD and has had COPD exacerbations in the past. He wears 3 L of oxygen at night but does not wear any oxygen during the day. On arrival to the ED he was mildly hypertensive, borderline tachycardic and satting in the low 90s on room air. Chest x-ray showed chronic interstitial emphysematous changes with discoid atelectasis at the left lung base. CBC and BMP were unremarkable. COVID/flu/RSV panel was negative. Patient was giving a DuoNeb breathing treatment but continued to have some increased work of breathing per ED physician and oxygen saturations were in the high 80s on room air. Given suspected COPD exacerbation with hypoxia, hospitalist was contacted for admission. I saw the patient at bedside in the ED. He was sitting up fairly comfortably in bed, conversing normally, in no acute distress. He was breathing comfortably on 2 L nasal cannula with saturations in the mid 90s. On exam he did have diminished breath sounds in his bilateral airways but no wheezing or crackles noted. Patient states that he has had worsening shortness of breath over the past 3 days. Has had a persistent nonproductive cough. Denies any fevers or chills. Denies any recent sick contacts. Denies any recent travel. Has no history of PE or DVT. He does report having some chest soreness due to ongoing cough. Patient currently smokes 3 to 4 cigarettes/day, states he has cut back significantly over the past several months. No other acute concerns currently. Will be admitted for further management. [facility] Medical History (Updated 05/17/24 @ 18:18 by Faith Arevalo) History of substance use History of alcohol abuse Smoker Emphysema lung Asthma COPD (chronic obstructive pulmonary disease) Coronary artery disease Hypertension Migraines TIA (transient ischemic attack) History of tobacco abuse Adverse reaction to REEMA inhibitor drug History of COPD History of hypertension Home Medications ???Medication ???Instructions ???Recorded ???Last Taken ???Type albuterol sulfate 90 mcg/actuation 1 - 2 puff inhalation Q4H PRN PRN 01/02/24 Unknown Rx aerosol inhaler (Ventolin HFA) Wheezing #1 ea fluticasone fur. 100 mcg-umeclid 1 ea inhalation DAILY breathing 01/21/24 Unknown History 62.5 mcg-vilant 25 mcg inhalat.powder (Trelegy Ellipta) ipratropium 0.5 mg-albuterol 3 mg 1.5 ml inhalation Q8H PRN copd 01/21/24 Unknown History (2.5 mg base)/3 mL nebulization soln loratadine 10 mg tablet (Allergy 10 mg PO Q24H PRN allergy symptoms 01/21/24 Unknown History Relief (loratadine)) omeprazole 20 mg capsule,delayed 20 mg PO DAILY reflux 01/21/24 Unknown History release tamsulosin 0.4 mg capsule 0.4 mg PO DAILY prostate 01/21/24 Unknown History amlodipine 2.5 mg tablet (Norvasc) 2.5 mg PO DAILY bp #30 tabs 01/22/24 Unknown Rx diphenhydramine HCl 25 mg capsule 50 mg (2 x 25 mg) PO TID PRN 01/22/24 Unknown Rx allergic reaction #20 caps cyclobenzaprine 10 mg tablet 10 mg PO BID spasm 05/17/24 Unknown History Allergy/AdvReac Type Severity Reaction Status Date / Time lisinopril Allergy Severe Angioedema Verified 05/17/24 15:23 codeine Allergy Mild Itching Verified 05/17/24 15:23 Social History Smoking Status: Light Smoker (<10/day) ROS Constitutional Constitutional: Reports fatigue; Denies chills, fever(s) or weakness Eyes Eyes: Denies change in vision Cardiovascular Cardiovascular: Denies chest pain Respiratory/Chest Respiratory/Chest: Reports cough, shortness of breath at rest and shortness of breath with exertion; Denies productive cough or wheezing Gastrointestinal Gastrointestinal: Denies abdominal pain Vital Signs Vital Signs Vital Signs: 05/17/24 15:19 05/17/24 15:22 05/17/24 15:23 Temperature 98.4 F 98.4 F Temperature Source Oral Oral Pulse Rate 92 99 Respiratory Rate 25 H 22 H Respiratory Effort Short of Breath Respiratory Depth Shallow Respiratory Pattern Tachypnea Blood Pressure 143/97 H 143/97 H Blood Pressure Mean 112 112 Pulse Ox 95 96 Oxygen Delivery Method Room Air Room Air Room Air 05/17/24 15:40 05/17/24 15:59 05/17/24 16:22 Temperature 98.2 F T (more content not included)... Normal [facility] Immature granulocytes/100 WB C Auto (Bld)Ordered By: Dior Candelaria on 05-17-2024 Immature granulocytes/100 WBC (Bld) 0.200 % 0.0-0.9 [facility] Comment on above: IG% - Immature Granu locytes (promyelocytes, myelocytes and metamyelocytes) > 1% indicates that a LEFT SHIFT is Present. Influenza virus A and B and SARS-CoV-2 (COVID-19) and Respiratory syncytial virus RNAOrdered By: Dior Candelaria on 05-17-2024 SARS-CoV-2 (COVID-19) RNA MOMO+probe Ql (Unsp spec) [facility] L501.4020on 05-17-2024 TROPONIN-I HS 8 pg/mL Normal 3.0-78.0 [facility] Comment on above: Order Comment: 'TROP ' Serial specimen #1, #2 or #3: 1 Result Comment: Plea se Note: New Test Units and Gender Specific Reference Ranges. For more information see Policy Stat Procedure Poth High Sensitivity Troponin (TNIH) and attachments. Performed By: #### L 500.2500, L100.0100, L501.4020 ####[facility] [id number] [facility] [place], [address] Lymphocytes Auto (Unsp spec) [#/Vol]Ordered By: Dior Candelaria on 05-17-2024 Lymphocytes (Bld) [#/Vol] 1.77 10*3/uL 0.83-4.51 [facility] Lymphocytes/100 WBC Auto (Un sp spec)Ordered By: Dior Candelaria on 05-17-2024 Lymphocytes/100 WBC (Bld) 19.6 % 19-41 [facility] M100.678on 05-17-2024 M100.678 Pending SARS-CoV-2 (COVID 19) Negative INFLUENZA A Negative INFLUENZA B Negative RSV PCR Negative Normal [facility] Comment on above: Performed By: #### L 3110.0500 #### [facility] [address] [place], [place], [id number] Microorganism identified Cx Nom (Unsp spec)Ordered By: Nicolas Hall on 05-17-2024 Respiratory Culture Pseudomonas aeruginosa Abnormal [facility] Monocyte percentageOrdered B y: Remus Ungur on 05-17-2024 Monocytes/100 WBC (Bld) 8.1 % 0-10 [facility] Neutrophil percentageOrdered By: Remus Ungur on 05-17-2024 Neutrophils/100 WBC (Bld) 65.6 % 47-70 [facility] Nucleated red blood cell per centageOrdered By: Remus Ungur on 05-17-2024 Nucleated RBC/100 WBC (Bld) [Ratio] 0 % 0-5 [facility] Procalcitoninon 05-17-2024 Procalcitonin 0.04 ng/mL Normal 0.00-0.09 [facility] Comment on above: Result Comment: A procalcitonin (PCT) level above 2.0 ng/mL on the first day of ICU admission is associated with a high risk for progression to severe sepsis and/or septic shock. A PCT level below 0.5 ng/mL on the first day of ICU admission is associated with a low risk for progression to severe and/or septic shock. Note: Concentrations <0.5 ng/mL do not exclude an infection on account of localized infections (without systemic signs) which can be associated with such low concentrations, or a systemic infection in its initial stages (<6 hours). Furthermore, increased procalcitonin can occur without infection. PCT concentrations between 0.5 and 2.0 ng/mL should be interpreted taking into account the patient's history. It is recommended to retest PCT within 6-24 hours if any concentrations <2 ng/mL are obtained. Performed By: #### L 500.2500, L100.0100, L501.4020 #### [facility] [address] [place], [place], [id number] Procalcitonin [Mass/Vol]Orde red By: Nicolas Hall on 05-17-2024 Procalcitonin 0.04 ng/mL 0.00-0.09 [facility] Comment on above: A procalcitonin (PCT ) level above 2.0 ng/mL on the first day of ICU admission is associated with a high risk for progression to severe sepsis and/or septic shock. A PCT level below 0.5 ng/mL on the first day of ICU admission is associated with a low risk for progression to severe and/or septic shock. Note: Concentrations <0.5 ng/mL do not exclude an infection on account of localized infections (without systemic signs) which can be associated with such low concentrations, or a systemic infection in its initial stages (<6 hours). Furthermore, increased procalcitonin can occur without infection. PCT concentrations between 0.5 and 2.0 ng/mL should be interpreted taking into account the patient's history. It is recommended to retest PCT within 6-24 hours if any concentrations <2 ng/mL are obtained. Troponin IOrdered By: Dior Candelaria on 05-17-2024 Troponin I High Sensitivity 8 pg/mL 3.0-78.0 [facility] Comment on above: Please Note: New Melvin t Units and Gender Specific Reference Ranges. For more information see Policy Stat Procedure Poth High Sensitivity Troponin (TNIH) and attachments. BASIC METABOLIC PANELon 05-2 Anion gap [Moles/Vol] 15 mmol/L Normal 10-20 [facility] Comment on above: Order Comment: [facility] has implemented the eGFR calculation approach that does not have a coefficient for race that conforms to the NKF-ASN Task Force Recommendations. Performed By: #### [id number] #### [facility] [address] [place], [place] [address] Manjit Sen, Ph.d. [phone] Calcium [Mass/Vol] 8.6 mg/dL Normal 8.4-10.2 [facility] Comment on above: Order Comment: [facility] has implemented the eGFR calculation approach that does not have a coefficient for race that conforms to the NKF-ASN Task Force Recommendations. Performed By: #### [id number] #### [facility] [address] [place], [place] [address] Manjit Sen, Ph.d. [phone] Chloride [Moles/Vol] 99 mmol/L Normal 98-108 [facility] Comment on above: Order Comment: [facility] has implemented the eGFR calculation approach that does not have a coefficient for race that conforms to the NKF-ASN Task Force Recommendations. Performed By: #### [id number] #### [facility] [address] [place], [place] [address] Manjit Sen, Ph.d. [phone] Creatinine [Mass/Vol] 0.65 mg/dL Low 0.80-1.30 [facility] Comment on above: Order Comment: [facility] has implemented the eGFR calculation approach that does not have a coefficient for race that conforms to the NKF-ASN Task Force Recommendations. Performed By: #### [id number] #### [facility] [address] [place], [place] [address] Manjit Sen, Ph.d. [phone] EGFR 106 mL/min/1.73 m2 Normal >=60 [facility] Comment on above: Order Comment: [facility] has implemented the eGFR calculation approach that does not have a coefficient for race that conforms to the NKF-ASN Task Force Recommendations. Result Comment: Clarissa mated GFR was calculated using the 2020 CKD-EPI creatinine equation. Performed By: #### 4 [id number] #### [facility] [address] [place], [place] [address] Manjit Sen, Ph.d. [id number] Glucose [Mass/Vol] 188 mg/dL High 65-99 [facility] Comment on above: Order Comment: [facility] has implemented the eGFR calculation approach that does not have a coefficient for race that conforms to the NKF-ASN Task Force Recommendations. Performed By: #### 4 [id number] #### [facility] [address] [place], [place] [address] Manjit Sen, Ph.d. [phone] HCO3 (Bld) [Moles/Vol] 29 mmol/L Normal 21-32 [facility] Comment on above: Order Comment: [facility] has implemented the eGFR calculation approach that does not have a coefficient for race that conforms to the NKF-ASN Task Force Recommendations. Performed By: #### [id number] #### [facility] [address] [facility]. [place], [place] [address] Manjit Sen, Ph.d. [phone] Potassium [Moles/Vol] 4.4 mmol/L Normal 3.5-5.1 [facility] Comment on above: Order Comment: [facility] has implemented the eGFR calculation approach that does not have a coefficient for race that conforms to the NKF-ASN Task Force Recommendations. Performed By: #### [id number] #### [facility] [address] [place] [id number] Manjit Sen, Ph.d. [id number] Sodium [Moles/Vol] 139 mmol/L Normal 135-145 [facility] Comment on above: Order Comment: [facility]. [facility] has implemented the eGFR calculation approach that does not have a coefficient for race that conforms to the NKF-ASN Task Force Recommendations. Performed By: #### [id number] #### [facility] [address] [place] [address] Manjit Sen, Ph.d. [id number] Urea nitrogen [Mass/Vol] 9 mg/dL Normal 8-25 [facility] Comment on above: Order Comment: [facility] has implemented the eGFR calculation approach that does not have a coefficient for race that conforms to the NKF-ASN Task Force Recommendations. Performed By: #### 4 [id number] #### [facility] [address] [place], [place] [address] Manjit Sen, Ph.d. [id number] Urea nitrogen/Creatinine [Mass ratio] 13.8 mg/mg Normal 10.0-20.0 [facility] Comment on above: Order Comment: [facility] has implemented the eGFR calculation approach that does not have a coefficient for race that conforms to the NKF-ASN Task Force Recommendations. Performed By: #### 4 [id number] #### [facility] [address] [place], [place] [address] Manjit Sen, Ph.d. [id number] CBC WITH AUTO DIFFERENTIALon 10-31-2023 AUTO NRBC 0.0 % Normal [facility] Comment on above: Performed By: #### L [id number] #### [facility] [address] [place] [address] Manjit Sen, Ph.d. [id number] AUTO NRBC ABS COUNT 0.00 K/mcL Normal 0.00-0.00 [facility] Comment on above: Performed By: #### L [id number] #### [facility] [address] [place] [address] Manjit Sen, Ph.d. [id number] BASOPHILS ABSOLUTE COUNT 0.01 K/mcL Normal 0.00-0.30 [facility] Comment on above: Performed By: #### L [id number] #### [facility] [address] [place], [place] [id number] Manjit Sen, Ph.d. [id number] Basophils/100 WBC (Bld) 0.1 % Normal [facility] Comment on above: Performed By: #### L [id number] #### [facility] [address] [place] [address] Manjit Sen, Ph.d. [id number] Eosinophils (Bld) [#/Vol] 0.00 10*3/uL Normal 0.00-0.50 [facility] Comment on above: Performed By: #### L [id number] #### [facility] [address] [place], [place] [id number] Manjit Sen, Ph.d. [id number] Eosinophils/100 WBC (Bld) 0.0 % Normal [facility] Comment on above: Performed By: #### L [id number] #### [facility] [address] [place], [place] [address] Manjit Sen, Ph.d. [id number] Erythrocyte distribution width (RBC) [Ratio] 13.5 % Normal 11.6-14.8 [facility] Comment on above: Performed By: #### L [id number] #### [facility] [place] [address] Manjit Sen, Ph.d. [id number] Hematocrit (Bld) [Volume fraction] 46.7 % Normal 41.0-53.0 [facility] Comment on above: Performed By: #### L [id number] #### [facility] [address] [place] [address] [facility], Ph.d. [id number] Hemoglobin (Bld) [Mass/Vol] 14.7 g/dL Normal 13.5-17.5 [facility] Comment on above: Performed By: #### L [id number] #### [facility] [address] [place] [address] [facility], Ph.d. [id number] IG ABSOLUTE 0.06 K/mcL Normal 0.00-0.30 [facility] Comment on above: Performed By: #### L [id number] #### [facility] [address] [place] [address] [facility], Ph.d. [id number] IG PERCENT 0.70 % Normal [facility] Comment on above: Result Comment: The IG parameter is the percentage of metamyelocytes, myelocytes and promyelocytes. An immature granulocyte count (IG) of 1% or more suggests the possibility of infection, an IG count of 3% is very likely related to an infection. Performed By: #### L [id number] #### [facility] [address] [place] [address] [facility], Ph.d. [id number] Lymphocytes (Bld) [#/Vol] 0.61 10*3/uL Low 0.90-4.00 [facility] Comment on above: Performed By: #### L [id number] #### [facility] [address] [place] [address] [facility], Ph.d. [id number] Lymphocytes/100 WBC (Bld) 6.9 % Normal [facility] Comment on above: Performed By: #### L [id number] #### [facility] [address] [place], [place] [address] Manjit Sen, Ph.d. [id number] MCH (RBC) [Entitic mass] 30.5 pg Normal 26.0-34.0 [facility] Comment on above: Performed By: #### L [id number] #### [facility] [address] [place], [place] [address] Manjit Sen, Ph.d. [id number] MCV (RBC) [Entitic vol] 96.9 fL Normal 80.0-100.0 [facility] Comment on above: Performed By: #### L [id number] #### [facility] [address] [place] [id number] Manjit Sen, Ph.d. [id number] MEAN CORPUSCULAR HEMOGLOBIN CONC 31.5 g/dL Normal 31.0-37.0 [facility] Comment on above: Performed By: #### L [id number] #### [facility] [address] [place], [place] [address] Manjit Sen, Ph.d. [id number] Monocytes (Bld) [#/Vol] 0.25 10*3/uL Low 0.30-0.90 [facility] Comment on above: Performed By: #### L [id number] #### [facility] [address] [place], [place] [address] Manjit Sen, Ph.d. [id number] Monocytes/100 WBC (Bld) 2.8 % Normal [facility] Comment on above: Performed By: #### L [id number] #### [facility] [address] [place] [id number] Manjit Sen, Ph.d. [id number] NEUTROPHILS ABSOLUTE COUNT 7.87 K/mcL High 1.70-7.00 [facility] Comment on above: Performed By: #### L [id number] #### [facility] [address] [place] [address] Manjit Sen, Ph.d. [id number] Neutrophils/100 WBC (Bld) 89.5 % Normal [facility] Comment on above: Performed By: #### L [id number] #### [facility] [address] [place], [place] [address] Manjit Sen, Ph.d. [id number] Platelet mean volume (Bld) [Entitic vol] 9.4 fL Normal 9.4-12.4 [facility] Comment on above: Performed By: #### L [id number] #### [facility] [address] [place] [address] Manjit Sen, Ph.d. [id number] Platelets (Bld) [#/Vol] 254 10*3/uL Normal 150-400 [facility] Comment on above: Performed By: #### L [id number] #### [facility] [address] [place] [address] Manjit Sen, Ph.d. [id number] RBC (Bld) [#/Vol] 4.82 10*6/uL Normal 4.50-5.90 [facility] Comment on above: Performed By: #### L [id number] #### [facility] [address] [place], [place] [address] Manjit Sen, Ph.d. [id number] WBC (Bld) [#/Vol] 8.80 10*3/uL Normal 4.50-11.00 [facility] Comment on above: Performed By: #### L [id number] #### [facility] [address] [place], [place] [address] Manjit Sen, Ph.d. [id number] CBC,PLATELETSon 10-31-2023 Erythrocyte distribution width (RBC) [Ratio] 13.5 % 10.9 - 14.3 % [facility] Hematocrit (Bld) [Volume fraction] 42.9 % 39.6 - 48.8 % [facility] Hemoglobin (Bld) [Mass/Vol] 13.6 g/dL 13.4 - 16.8 g/dL [facility] Interpretation and review of laboratory results Abnormal [facility] MCH (RBC) [Entitic mass] 30.4 pg 26.1 - 33.3 pg [facility] MCHC (RBC) [Mass/Vol] 31.7 g/dL Low 31.9 - 36.5 g/dL [facility] MCV (RBC) [Entitic vol] 96.0 fL High 79.0 - 94.5 fL [facility] Platelet mean volume (Bld) [Entitic vol] 9.6 fL 8.7 - 12.3 fL [facility] Platelets (Bld) [#/Vol] 233 10*3/uL 146 - 337 K/uL [facility] RBC (Bld) [#/Vol] 4.47 10*6/uL [facility] WBC (Bld) [#/Vol] 9.08 10*3/uL 3.73 - 10. 10 K/uL [facility] Hematocrit (Bld) [Volume fraction] 42.9 % Normal 39.6-48.8 [facility] Comment on above: Performed By: #### H [facility] #### [facility] (DEFAULT) [address] [address] Hemoglobin (Bld) [Mass/Vol] 13.6 g/dL Normal 13.4-16.8 [facility] Comment on above: Performed By: #### H [facility] #### [facility] (DEFAULT) [address] [place] [address] 33817 MCV (RBC) [Entitic vol] 96.0 fL High 79.0-94.5 [facility] Comment on above: Performed By: #### H EMO #### [facility] (DEFAULT) [address] [place] [address] 32740 Mean Cell Hgb 30.4 pg Normal 26.1-33.3 [facility] Comment on above: Performed By: #### H EMO #### [facility] (DEFAULT) [address] [place] [address] 33431 Mean Cell Hgb Conc 31.7 g/dL Low 31.9-36.5 [facility] Comment on above: Performed By: #### H EMO #### [facility] (DEFAULT) [address] [place] [address] 75781 Platelet mean volume (Bld) [Entitic vol] 9.6 fL Normal 8.7-12.3 [facility] Comment on above: Performed By: #### H EMOGC #### [facility] (DEFAULT) [address] [place] [address] 33163 Platelets (Bld) [#/Vol] 233 10*3/uL Normal 146-337 [facility] Comment on above: Performed By: #### H EMO #### [facility] (DEFAULT) [address] [place] [address] 97052 RBC (Bld) [#/Vol] 4.47 10*6/uL Normal 4.38-5.83 [facility] Comment on above: Performed By: #### H [facility] #### [facility] (DEFAULT) [address] [place] [address] 59635 RBC Distribution 13.5 % Normal 10.9-14.3 [facility] Comment on above: Performed By: #### H EMO #### [facility] (DEFAULT) [address] [place] [address] 68258 WBC (Bld) [#/Vol] 9.08 10*3/uL Normal 3.73-10.10 [facility] Comment on above: Performed By: #### H EMO #### [facility] (DEFAULT) [address] [place] [address] 31754 CHEM 7 (LYTES,BUN,CREA,GLUC) on 10-31-2023 Anion gap [Moles/Vol] 14 mmol/L 7 - 17 mmol/L [facility] Chloride [Moles/Vol] 99 mmol/L 98 - 10 8 mmol/L [facility] CO2 [Moles/Vol] 33 mmol/L High 21 - 31 mmol/L [facility] Creatinine [Mass/Vol] 0.71 mg/dL 0.70 - 1.30 mg/dL [facility] eGFR, CKD-EPI, Male - PINF [facility] Comment on above: Reported eGFR is bas ed on the CKD-EPI 2020 equation using creatinine, age, and sex. Glucose [Mass/Vol] 148 mg/dL High 70 - 99 mg/dL [facility] Interpretation and review of laboratory results Abnormal [facility] Osmolality Calc [Osmolality] 299 [facility] Potassium [Moles/Vol] 3.7 mmol/L 3.5 - 5.0 mmol/L [facility] Sodium [Moles/Vol] 142 mmol/L 135 - 145 mmol/L [facility] Urea nitrogen [Mass/Vol] 12 mg/dL 7 - 25 mg/dL [facility] Urea nitrogen/Creatinine [Mass ratio] 17 mg/mg [facility] Anion gap [Moles/Vol] 14 mmol/L Normal 7-17 [facility] Comment on above: Performed By: #### DAXA VALDES, IPB #### [facility] (DEFAULT) [address] [place] [address] 86399 Chloride [Moles/Vol] 99 mmol/L Normal 98-108 [facility] Comment on above: Performed By: #### DAXA VALDES, IPB #### [facility] (DEFAULT) [address] [place] [address] CO2 [Moles/Vol] 33 mmol/L High 21-31 [facility] Comment on above: Performed By: #### DAXA VALDES, IPB #### [facility] (DEFAULT) [address] [place] [address] Creatinine [Mass/Vol] 0.71 mg/dL Normal 0.70-1.30 [facility] Comment on above: Performed By: #### DAXA VALDES, IPB #### [facility] (DEFAULT) [address] [place] [address] 15305 eGFR, CKD-EPI, Male > Normal >=60 [facility] Comment on above: Result Comment: Repo rted eGFR is based on the CKD-EPI 2020 equation using creatinine, age, and sex. Performed By: #### DAXA VALDES, IPB #### Que [facility] (DEFAULT) [address] [place] [address] 36681 Glucose [Mass/Vol] 148 mg/dL High 70-99 [facility] Comment on above: Performed By: #### DAXA VALDES, IPB #### Que [facility] (DEFAULT) [address] [place] [address] 08771 Osmolality [Osmolality] 299 mosm/kg Normal 278-305 [facility] Comment on above: Performed By: #### DAXA VALDES, IPB #### Que [facility] (DEFAULT) [address] [place] [address] 30505 Potassium [Moles/Vol] 3.7 mmol/L Normal 3.5-5.0 [facility] Comment on above: Performed By: #### DAXA VALDES, IPB #### Que [facility] (DEFAULT) [address] [place] [address] 88723 Sodium [Moles/Vol] 142 mmol/L Normal 135-145 [facility] Comment on above: Performed By: #### DAXA VALDES, IPB #### Que [facility] (DEFAULT) [address] [place] [address] 49679 Urea nitrogen [Mass/Vol] 12 mg/dL Normal 7-25 [facility] Comment on above: Performed By: #### DAXA VALDES, IPB #### Que [facility] (DEFAULT) [address] [place] [address] 70674 Urea nitrogen/Creatinine [Mass ratio] 17 mg/mg Normal [facility] Comment on above: Performed By: #### MG KEISHAO, IPB #### Que [facility] (DEFAULT) [address] [place] [address] 62632 MAGNESIUMon 10-31-2023 Magnesium [Mass/Vol] 1.8 mg/dL 1.6 - 2 .6 mg/dL [facility] Magnesium [Mass/Vol] 1.8 mg/dL Normal 1.6-2.6 [facility] Comment on above: Performed By: #### C DAXA SPEARS IPB #### [facility] (DEFAULT) [address] [place] [address] 86886 No Panel Informationon 10-30 Interpretation and review of laboratory results Normal [facility] PHOSPHATE, INORGANICon 10-30 Phosphate [Mass/Vol] 3.2 mg/dL 2.2 - 4 .6 mg/dL [facility] Phosphorous 3.2 mg/dL Normal 2.2-4.6 [facility] Comment on above: Performed By: #### C DAXA SPEARS, BHAKTIB #### [facility] (DEFAULT) [address] [place], [place] [id number] CBC,PLATELETSon 10-30-2023 Erythrocyte distribution width (RBC) [Ratio] 13.7 % 10.9 - 14.3 % [facility] Hematocrit (Bld) [Volume fraction] 42.2 % 39.6 - 48.8 % [facility] Hemoglobin (Bld) [Mass/Vol] 13.4 g/dL 13.4 - 16.8 g/dL [facility] Interpretation and review of laboratory results Abnormal [facility] MCH (RBC) [Entitic mass] 30.7 pg 26.1 - 33.3 pg [facility] MCHC (RBC) [Mass/Vol] 31.8 g/dL Low 31.9 - 36.5 g/dL [facility] MCV (RBC) [Entitic vol] 96.6 fL High 79.0 - 94.5 fL [facility] Platelet mean volume (Bld) [Entitic vol] 9.7 fL 8.7 - 12.3 fL [facility] Platelets (Bld) [#/Vol] 183 10*3/uL 146 - 337 K/uL [facility] RBC (Bld) [#/Vol] 4.37 10*6/uL Low [facility] WBC (Bld) [#/Vol] 6.36 10*3/uL 3.73 - 10. 10 K/uL [facility] Hematocrit (Bld) [Volume fraction] 42.2 % Normal 39.6-48.8 [facility] Comment on above: Performed By: #### DAXA VALDES, IPB #### [facility] (DEFAULT) [address] [place] [address] 78881 Hemoglobin (Bld) [Mass/Vol] 13.4 g/dL Normal 13.4-16.8 [facility] Comment on above: Performed By: #### DAXA VALDES, IPB #### Que [facility] (DEFAULT) [address] [place] [address] 59444 MCV (RBC) [Entitic vol] 96.6 fL High 79.0-94.5 [facility] Comment on above: Performed By: #### DAXA VALDES, IPB #### [facility] (DEFAULT) [address] [place] [address] 43707 Mean Cell Hgb 30.7 pg Normal 26.1-33.3 [facility] Comment on above: Performed By: #### Karyn SPEARS MGAdi, IPB #### [facility] (DEFAULT) [address] [place] [address] 93462 Mean Cell Hgb Conc 31.8 g/dL Low 31.9-36.5 [facility] Comment on above: Performed By: #### Karyn SPEARS MGO, IPB #### [facility] (DEFAULT) [address] [place] [address] 24531 Platelet mean volume (Bld) [Entitic vol] 9.7 fL Normal 8.7-12.3 [facility] Comment on above: Performed By: #### Karyn SPEARS MGO, IPB #### [facility] (DEFAULT) [address] [place] [address] 98365 Platelets (Bld) [#/Vol] 183 10*3/uL Normal 146-337 [facility] Comment on above: Performed By: #### C HM7, MGO, IPB #### U [facility] (DEFAULT) [address] [place] [address] 07333 RBC (Bld) [#/Vol] 4.37 10*6/uL Low 4.38-5.83 [facility] Comment on above: Performed By: #### Karyn HM7, MGO, IPB #### U [facility] (DEFAULT) [address] [place] [address] 58740 RBC Distribution 13.7 % Normal 10.9-14.3 [facility] Comment on above: Performed By: #### Karyn HM7, MGO, IPB #### Que [facility] (DEFAULT) [address] [place] [address] 60077 WBC (Bld) [#/Vol] 6.36 10*3/uL Normal 3.73-10.10 [facility] Comment on above: Performed By: #### Karyn HM7, MGO, IPB #### [facility] (DEFAULT) [address] [place] [address] 20064 CHEM 7 (LYTES,BUN,CREA,GLUC) Ordered By: Nabeel Salgado on 10-30-2023 Anion gap [Moles/Vol] 11 mmol/L 7 - 17 mmol/L [facility] Chloride [Moles/Vol] 103 mmol/L 98 - 10 8 mmol/L [facility] CO2 [Moles/Vol] 34 mmol/L High 21 - 31 mmol/L [facility] Creatinine [Mass/Vol] 0.71 mg/dL 0.70 - 1.30 mg/dL [facility] eGFR, CKD-EPI, Male - PINF [facility] Comment on above: Reported eGFR is bas ed on the CKD-EPI 2020 equation using creatinine, age, and sex. Glucose [Mass/Vol] 128 mg/dL High 70 - 99 mg/dL [facility] Interpretation and review of laboratory results Abnormal [facility] Osmolality Calc [Osmolality] 302 [facility] Potassium [Moles/Vol] 4.0 mmol/L 3.5 - 5.0 mmol/L [facility] Sodium [Moles/Vol] 144 mmol/L 135 - 145 mmol/L [facility] Urea nitrogen [Mass/Vol] 13 mg/dL 7 - 25 mg/dL [facility] Urea nitrogen/Creatinine [Mass ratio] 18 mg/mg [facility] CHEM 7 (LYTES,BUN,CREA,GLUC) on 10-30-2023 Anion gap [Moles/Vol] 11 mmol/L Normal 7-17 [facility] Comment on above: Performed By: #### DAXA VALDES, IPB #### [facility] (DEFAULT) [address] [place] [address] 15970 Chloride [Moles/Vol] 103 mmol/L Normal 98-108 [facility] Comment on above: Performed By: #### Karyn SPEARS MGO, IPB #### [facility] (DEFAULT) [address] [place] [address] 82126 CO2 [Moles/Vol] 34 mmol/L High 21-31 [facility] Comment on above: Performed By: #### Karyn HMAda MGO, IPB #### [facility] (DEFAULT) [address] [place] [address] 67186 Creatinine [Mass/Vol] 0.71 mg/dL Normal 0.70-1.30 [facility] Comment on above: Performed By: #### Karyn SPEARS MGAdi, IPB #### [facility] (DEFAULT) [address] [place] [address] 53213 eGFR, CKD-EPI, Male > Normal >=60 [facility] Comment on above: Result Comment: Repo rted eGFR is based on the CKD-EPI 2020 equation using creatinine, age, and sex. Performed By: #### C HM7, MGO, IPB #### U [facility] (DEFAULT) [address] [place] [address] 52150 Glucose [Mass/Vol] 128 mg/dL High 70-99 [facility] Comment on above: Performed By: #### Karyn HM7, MGO, IPB #### U [facility] (DEFAULT) [address] [place] [address] 97094 Osmolality [Osmolality] 302 mosm/kg Normal 278-305 [facility] Comment on above: Performed By: #### Karyn HM7, MGO, IPB #### U [facility] (DEFAULT) [address] [place] [address] 67260 Potassium [Moles/Vol] 4.0 mmol/L Normal 3.5-5.0 [facility] Comment on above: Performed By: #### Karyn HMAda MGO, IPB #### [facility] (DEFAULT) [address] [place] [address] 31922 Sodium [Moles/Vol] 144 mmol/L Normal 135-145 [facility] Comment on above: Performed By: #### Karyn SPEARS MGO, IPB #### U [facility] (DEFAULT) [address] [place] [address] 15367 Urea nitrogen [Mass/Vol] 13 mg/dL Normal 7-25 [facility] Comment on above: Performed By: #### Karyn HMAda, MGO, IPB #### U [facility] (DEFAULT) [address] [place] [address] 28123 Urea nitrogen/Creatinine [Mass ratio] 18 mg/mg Normal [facility] Comment on above: Performed By: #### Karyn HM7, MGO, IPB #### U [facility] (DEFAULT) [address] [place] [address] 64281 MAGNESIUMon 10-30-2023 Magnesium [Mass/Vol] 2.0 mg/dL 1.6 - 2 .6 mg/dL [facility] Magnesium [Mass/Vol] 2.0 mg/dL Normal 1.6-2.6 [facility] Comment on above: Performed By: #### C REGAN, DAXA, IPB #### [facility] (DEFAULT) [address] [place] [address] 15983 No Panel Informationon 10-29 Interpretation and review of laboratory results Normal [facility] PHOSPHATE, INORGANICon 10-29 Phosphate [Mass/Vol] 2.7 mg/dL 2.2 - 4 .6 mg/dL [facility] Phosphorous 2.7 mg/dL Normal 2.2-4.6 [facility] Comment on above: Performed By: #### C REGAN, DAXA, IPB #### [facility] (DEFAULT) [address] [place] [address] 16275 VENOUS BLOOD GASon Base excess Calc (Bld) [Moles/Vol] 12.5 mmol/L High -3.0 - 3.0 mmol/L [facility] CO2 (Bld) [Partial pressure] 57 mm[Hg] High [facility] HCO3 (Bld) [Moles/Vol] 37 mmol/L High 22 - 29 mmol/L [facility] Interpretation and review of laboratory results Abnormal [facility] Oxygen (Bld) [Partial pressure] 60 mm[Hg] mm Hg [facility] Comment on above: Venous pO2 is not re commended for the evaluation of oxygen status, clinical correlation is recommended. Oxygen saturation in Blood 92 % High 70 - 80 % [facility] pH (Bld) 7.42 [pH] 7.32 - 7.43 [facility] Specimen source Nom (Unsp spec) Venous [facility] Base Excess 12.5 mmol/L High -3.0-3.0 [facility] Comment on above: Performed By: #### G ASV5 #### [facility] (DEFAULT) [address] [place] [address] 94423 HCO3 (Bld) [Moles/Vol] 37 mmol/L High 22-29 [facility] Comment on above: Performed By: #### G ASV5 #### [facility] (DEFAULT) [address] [place] [address] 98342 Oxygen saturation in Blood 92 % High 70-80 [facility] Comment on above: Performed By: #### G ASV5 #### [facility] (DEFAULT) [address] [place] [address] 47358 pCO2, Venous 57 mm Hg High 36-52 [facility] Comment on above: Performed By: #### G ASV5 #### [facility] (DEFAULT) [address] [place] [address] 40708 pH, Venous 7.42 Normal 7.32-7.43 [facility] Comment on above: Performed By: #### G ASV5 #### [facility] (DEFAULT) [address] [place] [address] 24415 pO2, Venous 60 mm Hg Normal [facility] Comment on above: Result Comment: Veno us pO2 is not recommended for the evaluation of oxygen status, clinical correlation is recommended. Performed By: #### G ASV5 #### [facility] (DEFAULT) [address] [place] [address] 76814 Specimen type Nom (Spec) Venous Normal [facility] Comment on above: Performed By: #### G ASV5 #### [facility] (DEFAULT) [address] [place] [address] 57579 B-TYPE NATRIURETIC PEPTIDE ( BRAIN)on 10-29-2023 Interpretation and review of laboratory results Normal [facility] Natriuretic peptide B (Bld) [Mass/Vol] 12 pg/mL 0 - 100 pg/mL [facility] Natriuretic peptide B (Bld) [Mass/Vol] 12 pg/mL Normal 0-100 [facility] Comment on above: Order Comment: If hi story of congestive heart failure. Performed By: #### B MAJOR GIFTS DIRECTOR #### [facility] (DEFAULT) [address] [place] [id number] CBC AND ELECTRONIC DIFFon 05 -23-2024 Basophils (Bld) [#/Vol] 0.04 10*3/uL 0.00 - 0.09 K/uL [facility] Basophils/100 WBC (Bld) 0.5 % [facility] Differential cell count method Nom (Bld) Electronic Differential [facility] Eosinophils (Bld) [#/Vol] K/uL 0.00 - 0.48 K/uL [facility] Eosinophils/100 WBC (Bld) 0.2 % [facility] Erythrocyte distribution width (RBC) [Ratio] 13.6 % 10.9 - 14.3 % [facility] Hematocrit (Bld) [Volume fraction] 49.6 % High 39.6 - 48.8 % [facility] Hemoglobin (Bld) [Mass/Vol] 15.9 g/dL 13.4 - 16.8 g/dL [facility] Immature granulocytes (Bld) [#/Vol] K/uL NINF - 0.07 K/uL [facility] Immature granulocytes/100 WBC (Bld) 0.2 % [facility] Interpretation and review of laboratory results Abnormal [facility] Lymphocytes (Bld) [#/Vol] 1.00 10*3/uL 0.83 - 3.57 K/uL [facility] Lymphocytes/100 WBC (Bld) 11.5 % [facility] MCH (RBC) [Entitic mass] 30.5 pg 26.1 - 33.3 pg [facility] MCHC (RBC) [Mass/Vol] 32.1 g/dL 31.9 - 36.5 g/dL [facility] MCV (RBC) [Entitic vol] 95.0 fL High 79.0 - 94.5 fL [facility] Monocytes (Bld) [#/Vol] 0.69 10*3/uL 0.24 - 0.93 K/uL [facility] Monocytes/100 WBC (Bld) 7.9 % [facility] Neutrophils (Bld) [#/Vol] 6.91 10*3/uL High 1.57 - 6.19 K/uL [facility] Nucleated RBC/100 WBC (Bld) [Ratio] 0.0 % NINF [facility] Platelet mean volume (Bld) [Entitic vol] 9.5 fL 8.7 - 12.3 fL [facility] Platelets (Bld) [#/Vol] 195 10*3/uL 146 - 337 K/uL [facility] RBC (Bld) [#/Vol] 5.22 10*6/uL [facility] Segmented neutrophils/100 WBC (Bld) 79.7 % [facility] WBC (Bld) [#/Vol] 8.68 10*3/uL 3.73 - 10. 10 K/uL [facility] Abs Eos Auto < Normal 0.00-0.48 [facility] Comment on above: Performed By: #### L [id number] #### [facility] (DEFAULT) [address] [place] [address]858 Basophils (Bld) [#/Vol] 0.04 10*3/uL Normal 0.00-0.09 [facility] Comment on above: Performed By: #### L [id number] #### [facility] (DEFAULT) [address] [place] [address] 21615 Basophils/100 WBC (Bld) 0.5 % Normal [facility] Comment on above: Performed By: #### L [id number] #### [facility] (DEFAULT) [address] [place] [address]269 DIFF STATUS Electronic Differential Normal [facility] Comment on above: Performed By: #### L [id number] #### [facility] (DEFAULT) [address] [place] [address]654 Eosinophils/100 WBC (Bld) 0.2 % Normal [facility] Comment on above: Performed By: #### L [id number] #### [facility] (DEFAULT) [address] [place] [address] 10311 Hematocrit (Bld) [Volume fraction] 49.6 % High 39.6-48.8 [facility] Comment on above: Performed By: #### L [id number] #### [facility] (DEFAULT) [address] [address] Hemoglobin (Bld) [Mass/Vol] 15.9 g/dL Normal 13.4-16.8 [facility] Comment on above: Performed By: #### L [id number] #### [facility] (DEFAULT) [address] [address] Immature Grans % 0.2 % Normal [facility] Comment on above: Performed By: #### L [id number] #### [facility] (DEFAULT) [address] [address] Immature Grans Absolute < Normal <=0.07 [facility] Comment on above: Performed By: #### L [id number] #### [facility] (DEFAULT) [address] [address] Lymphocytes (Bld) [#/Vol] 1.00 10*3/uL Normal 0.83-3.57 [facility] Comment on above: Performed By: #### L [id number] #### [facility] (DEFAULT) [address] [address] Lymphocytes/100 WBC (Bld) 11.5 % Normal [facility] Comment on above: Performed By: #### L [id number] #### [facility] (DEFAULT) [address] [address] MCV (RBC) [Entitic vol] 95.0 fL High 79.0-94.5 [facility] Comment on above: Performed By: #### L AB980 #### [facility] (DEFAULT) [address] [address] Mean Cell Hgb 30.5 pg Normal 26.1-33.3 [facility] Comment on above: Performed By: #### L AB980 #### [facility] (DEFAULT) [address] [place] [address] 56096 Mean Cell Hgb Conc 32.1 g/dL Normal 31.9-36.5 [facility] Comment on above: Performed By: #### L [id number] #### [facility] (DEFAULT) [address] [place] [address] 24037 Monocytes (Bld) [#/Vol] 0.69 10*3/uL Normal 0.24-0.93 [facility] Comment on above: Performed By: #### L AB980 #### [facility] (DEFAULT) [address] [place] [address] 58971 Monocytes/100 WBC (Bld) 7.9 % Normal [facility] Comment on above: Performed By: #### L AB980 #### [facility] (DEFAULT) [address] [place] [address] 11367 Nucleated RBC 0.0 /100 WBC Normal <=0.2 [facility] Comment on above: Performed By: #### L AB980 #### [facility] (DEFAULT) [address] [place] [address]643 Platelet mean volume (Bld) [Entitic vol] 9.5 fL Normal 8.7-12.3 [facility] Comment on above: Performed By: #### L [id number] #### [facility] (DEFAULT) [address] [address] Platelets (Bld) [#/Vol] 195 10*3/uL Normal 146-337 [facility] Comment on above: Performed By: #### L [id number] #### [facility] (DEFAULT) [address] [address] RBC (Bld) [#/Vol] 5.22 10*6/uL Normal 4.38-5.83 [facility] Comment on above: Performed By: #### L [id number] #### [facility] (DEFAULT) [address] [place] [address] 80073 RBC Distribution 13.6 % Normal 10.9-14.3 [facility] Comment on above: Performed By: #### L [id number] #### [facility] (DEFAULT) [address] [place] [address] 52894 Segs + Bands Auto 79.7 % Normal [facility] Comment on above: Performed By: #### L [id number] #### [facility] (DEFAULT) [address] [place] [address] Segs + Bands,Absolute Auto 6.91 K/uL High 1.57-6.19 [facility] Comment on above: Performed By: #### L [id number] #### [facility] (DEFAULT) [address] [address] WBC (Bld) [#/Vol] 8.68 10*3/uL Normal 3.73-10.10 [facility] Comment on above: Performed By: #### L [id number] #### [facility] (DEFAULT) [address] [place] [address] [facility] 7 - EDon 10-29-2023 Anion gap [Moles/Vol] 7 mmol/L 7 - 17 mmol/L [facility] Chloride [Moles/Vol] 99 mmol/L 98 - 10 8 mmol/L [facility] CO2 [Moles/Vol] 34 mmol/L High 21 - 31 mmol/L [facility] Creatinine [Mass/Vol] 0.82 mg/dL 0.70 - 1.30 mg/dL [facility] eGFR, CKD-EPI, Male - PINF [facility] Comment on above: Reported eGFR is bas ed on the CKD-EPI 2020 equation using creatinine, age, and sex. Glucose [Mass/Vol] 106 mg/dL High 70 - 99 mg/dL [facility] Interpretation and review of laboratory results Abnormal [facility] Osmolality Calc [Osmolality] 286 [facility] Potassium [Moles/Vol] 4.2 mmol/L 3.5 - 5.0 mmol/L [facility] Sodium [Moles/Vol] 136 mmol/L 135 - 145 mmol/L [facility] Urea nitrogen [Mass/Vol] 13 mg/dL 7 - 25 mg/dL [facility] Urea nitrogen/Creatinine [Mass ratio] 16 mg/mg [facility] Anion gap [Moles/Vol] 7 mmol/L Normal 7-17 [facility] Comment on above: Performed By: #### C 7ED #### [facility] (DEFAULT) [address] [place] [address]185 Chloride [Moles/Vol] 99 mmol/L Normal 98-108 [facility] Comment on above: Performed By: #### C 7ED #### [facility] (DEFAULT) [address] [place] [address] CO2 [Moles/Vol] 34 mmol/L High 21-31 [facility] Comment on above: Performed By: #### Karyn 7ED #### [facility] (DEFAULT) [address] [place] [address]97 Creatinine [Mass/Vol] 0.82 mg/dL Normal 0.70-1.30 [facility] Comment on above: Performed By: #### Karyn 7ED #### [facility] (DEFAULT) [address] [place] [address] 22260 eGFR, CKD-EPI, Male > Normal >=60 [facility] Comment on above: Result Comment: Repo rted eGFR is based on the CKD-EPI 2020 equation using creatinine, age, and sex. Performed By: #### C 7ED #### Que [facility] (DEFAULT) [address] [place] [address] 42407 Glucose [Mass/Vol] 106 mg/dL High 70-99 [facility] Comment on above: Performed By: #### C 7ED #### Que [facility] (DEFAULT) [address] [place] [address]27 Osmolality [Osmolality] 286 mosm/kg Normal 278-305 [facility] Comment on above: Performed By: #### C 7ED #### [facility] (DEFAULT) [address] [place] [address] Potassium [Moles/Vol] 4.2 mmol/L Normal 3.5-5.0 [facility] Comment on above: Performed By: #### C 7ED #### [facility] (DEFAULT) [address] [place] [address] Sodium [Moles/Vol] 136 mmol/L Normal 135-145 [facility] Comment on above: Performed By: #### C 7ED #### [facility] (DEFAULT) [address] [place] [address] 25784 Urea nitrogen [Mass/Vol] 13 mg/dL Normal 7-25 [facility] Comment on above: Performed By: #### C 7ED #### [facility] (DEFAULT) [address] [place] [address] 91547 Urea nitrogen/Creatinine [Mass ratio] 16 mg/mg Normal [facility] Comment on above: Performed By: #### C 7ED #### [facility] (DEFAULT) [address] [place] [address] HIGH SENSITIVITY TROPONIN I - SINGLE ORDERon 10-29-2023 Interpretation and review of laboratory results Normal [facility] Troponin I.cardiac High sensitivity method [Mass/Vol] 4 ng/L NINF - 53 ng/L [facility] hs-Troponin I 4 ng/L Normal <53 [facility] Comment on above: Order Comment: If hi story of coronary heart disease. Acute Coronary Syndrome (ACS): Initial Evaluation and Management: [email or web address] Performed By: #### L ABHSTI1 #### [facility] (DEFAULT) [address] [place] [address] No Panel Informationon 10-28 [facility] Portable XR Chest Viewson IMPRESSION: I suspect the findings are related to a fibrotic process predominantly. No dense consolidation. OLOGY EXAM: XR CHEST 1 VIE W PORTABLE, 10/29/2023 16:24 PM COMPARISON: May 24, 2019 CLINICAL INDICATIONS: r/o consolidation RELEVANT CLINICAL HISTORY: FINDINGS: (Adequate technique) Implanted Devices: None Thorax: Multifocal irregular linear densities throughout both lungs. There is no dense consolidation and no pleural fluid. RADIOLOGY Washington Godfrey MD - 10/29/2023 EXAM: XR CHEST 1 VIEW PORTABLE, 10/29/2023 16:24 PM COMPARISON: May 24, 2019 CLINICAL INDICATIONS: r/o consolidation RELEVANT CLINICAL HISTORY: FINDINGS: (Adequate technique) Implanted Devices: None Thorax: Multifocal irregular linear densities throughout both lungs. There is no dense consolidation and no pleural fluid. IMPRESSION IMPRESSION: I suspect the findings are related to a fibrotic process predominantly. No dense consolidation. [facility] Radiology Study observation (narrative) [facility] Portable XR Chest ViewsOrder ed By: Washington Godfrey on 10-29-2023 [facility] Work Phone: VENOUS BLOOD GASon Base excess Calc (Bld) [Moles/Vol] 13.0 mmol/L High -3.0 - 3.0 mmol/L [facility] CO2 (Bld) [Partial pressure] 61 mm[Hg] High [facility] HCO3 (Bld) [Moles/Vol] 38 mmol/L High 22 - 29 mmol/L [facility] Interpretation and review of laboratory results Abnormal [facility] Oxygen (Bld) [Partial pressure] 57 mm[Hg] mm Hg [facility] Comment on above: Venous pO2 is not re commended for the evaluation of oxygen status, clinical correlation is recommended. Oxygen saturation in Blood 87 % High 70 - 80 % [facility] pH (Bld) 7.40 [pH] 7.32 - 7.43 [facility] Specimen source Nom (Unsp spec) Venous [facility] Base Excess 13.0 mmol/L High -3.0-3.0 [facility] Comment on above: Performed By: #### Karyn HM7, MGO, IPB #### [facility] (DEFAULT) [address] [place] [address] 10564 HCO3 (Bld) [Moles/Vol] 38 mmol/L High 22-29 [facility] Comment on above: Performed By: #### Karyn HM7, MGO, IPB #### [facility] (DEFAULT) [address] [place] [address] 76042 Oxygen saturation in Blood 87 % High 70-80 [facility] Comment on above: Performed By: #### Karyn HM7, MGO, IPB #### [facility] (DEFAULT) [address] [place] [address] 80396 pCO2, Venous 61 mm Hg High 36-52 [facility] Comment on above: Performed By: #### Karyn HM7, MGO, IPB #### [facility] (DEFAULT) [address] [place] [address] 05553 pH, Venous 7.40 Normal 7.32-7.43 [facility] Comment on above: Performed By: #### Karyn HM7, MGO, IPB #### [facility] (DEFAULT) [address] [place] [address] 20881 pO2, Venous 57 mm Hg Normal [facility] Comment on above: Result Comment: Veno us pO2 is not recommended for the evaluation of oxygen status, clinical correlation is recommended. Performed By: #### Karyn HM7, MGO, IPB #### [facility] (DEFAULT) [address] [place] [address]01 Specimen type Nom (Spec) Venous Normal [facility] Comment on above: Performed By: #### Karyn HM7, MGO, IPB #### [facility] (DEFAULT) [address] [place] [address]959 Base Excess 11.0 mmol/L High -3.0-3.0 [facility] Comment on above: Performed By: #### DAXA VALDES, IPB #### [facility] (DEFAULT) [address] [place] [address]307 HCO3 (Bld) [Moles/Vol] 37 mmol/L High 22-29 [facility] Comment on above: Performed By: #### DAXA VALDES, IPB #### [facility] (DEFAULT) [address] [place] [address] 91138 Oxygen saturation in Blood 53 % Low 70-80 [facility] Comment on above: Performed By: #### DAXA VALDES, IPB #### Que [facility] (DEFAULT) [address] [place] [address] 54486 pCO2, Venous 74 mm Hg Critically high 36-52 [facility] Comment on above: Performed By: #### DAXA VALDES, IPB #### [facility] (DEFAULT) [address] [place] [address] 27026 pH, Venous 7.31 Low 7.32-7.43 [facility] Comment on above: Performed By: #### DAXA VALDES, IPB #### [facility] (DEFAULT) [address] [place] [address] 99723 pO2, Venous < Normal [facility] Comment on above: Result Comment: Veno us pO2 is not recommended for the evaluation of oxygen status, clinical correlation is recommended. Performed By: #### DAXA VALDES, IPB #### [facility] (DEFAULT) [address] [place] [address] 13919 Specimen type Nom (Spec) Venous Normal [facility] Comment on above: Performed By: #### Karyn TONY7, MGO, IPB #### [facility] (DEFAULT) [address] [place] [address] 32758 VENOUS BLOOD GASOrdered By: Michelle Grant on 10-29-2023 Base excess Calc (Bld) [Moles/Vol] 11.0 mmol/L High -3.0 - 3.0 mmol/L [facility] CO2 (Bld) [Partial pressure] 74 mm[Hg] Critically high [facility] HCO3 (Bld) [Moles/Vol] 37 mmol/L High 22 - 29 mmol/L [facility] Interpretation and review of laboratory results Abnormal [facility] Oxygen (Bld) [Partial pressure] mm Hg [facility] Comment on above: Venous pO2 is not re commended for the evaluation of oxygen status, clinical correlation is recommended. Oxygen saturation in Blood 53 % Low 70 - 80 % [facility] pH (Bld) 7.31 [pH] Low 7.32 - 7.43 [facility] Specimen source Nom (Unsp spec) Venous [facility] XR CHEST 1 VIEW PORTABLEon 0 10-29-2023 XR CHEST 1 VIEW PORTABLE EXAM: XR CHEST 1 VIEW PORTABLE, 10/29/2023 16:24 PM COMPARISON: May 24, 2019 CLINICAL INDICATIONS: r/o consolidation RELEVANT CLINICAL HISTORY: FINDINGS: (Adequate technique) Implanted Devices: None Thorax: Multifocal irregular linear densities throughout both lungs. There is no dense consolidation and no pleural fluid. IMPRESSION: I suspect the findings are related to a fibrotic process predominantly. No dense consolidation. Normal [facility] XR Chest PA and Abdomen APon 10-27-2023 1. No acute cardiopulmonary abnormality. 2. Stable emphysema, hyperinflation and multifocal pulmonary parenchymal scarring. VKR/hff Workstation ID: [id number] GE RIS EXAMINATION: XR CHEST PA/AP HISTORY: ORDERING SYSTEM PROVIDED HISTORY: shortness of breath, TECHNOLOGIST PROVIDED HISTORY: Illness/Other Reason for exam: shortness of breath Cancer History: unknown Surgery, RadiationHistory: unknown Encounter Type: Initial Additional signs and symptoms: . ORDERING SYSTEM PROVIDED DIAGNOSIS CODES: J44.1 COPD with acute exacerbation (HCC) J44.1 COPD exacerbation (HCC) R09.3 Increased sputum production R06.82 Tachypnea J96.21 Acute on chronic respiratory failure with hypoxia (HCC) COMPARISON: Chest x-ray 10/25/2023 and 01/09/2017. FINDINGS: AP portable view. MEDIASTINUM: Cardiac silhouette is within normal limits. LUNGS AND PLEURA: Pulmonary hyperinflation and upper lung emphysema is stable. Multifocal pulmonary parenchymal scarring redemonstrated. OSSEOUS STRUCTURES AND SOFT TISSUES: No acute osseous abnormality. Nancy Bonner MD - 10/27/2023 EXAMINATION: XR CHEST PA/AP HISTORY: ORDERING SYSTEM PROVIDED HISTORY: shortness of breath, TECHNOLOGIST PROVIDED HISTORY: Illness/Other Reason for exam: shortness of breath Cancer History: unknown Surgery, RadiationHistory: unknown Encounter Type: Initial Additional signs and symptoms: . ORDERING SYSTEM PROVIDED DIAGNOSIS CODES: J44.1 COPD with acute exacerbation (HCC) J44.1 COPD exacerbation (HCC) R09.3 Increased sputum production R06.82 Tachypnea J96.21 Acute on chronic respiratory failure with hypoxia (HCC) COMPARISON: Chest x-ray 10/25/2023 and 01/09/2017. FINDINGS: AP portable view. MEDIASTINUM: Cardiac silhouette is within normal limits. LUNGS AND PLEURA: Pulmonary hyperinflation and upper lung emphysema is stable. Multifocal pulmonary parenchymal scarring redemonstrated. OSSEOUS STRUCTURES AND SOFT TISSUES: No acute osseous abnormality. IMPRESSION: 1. No acute cardiopulmonary abnormality. 2. Stable emphysema, hyperinflation and multifocal pulmonary parenchymal scarring. VKR/hff Workstation ID: [id number] [facility] XR Chest PA and Abdomen APOr dered By: Nancy Bowie on 10-27-2023 [facility] Work Phone: BASIC METABOLIC PANELon 10-07 Anion gap [Moles/Vol] 15 mmol/L Normal 10-20 [facility] Comment on above: Order Comment: [facility] has implemented the eGFR calculation approach that does not have a coefficient for race that conforms to the NKF-ASN Task Force Recommendations. Performed By: #### 3 [id number] #### [facility] [address] [place] [address] Kvng William M.D. [id number] Calcium [Mass/Vol] 8.8 mg/dL Normal 8.4-10.2 [facility] Comment on above: Order Comment: [facility] has implemented the eGFR calculation approach that does not have a coefficient for race that conforms to the NKF-ASN Task Force Recommendations. Performed By: #### 4 6124 #### [facility] [address] [place] [address] Kvng William M.D. [id number] Chloride [Moles/Vol] 100 mmol/L Normal 98-108 [facility] Comment on above: Order Comment: [facility] has implemented the eGFR calculation approach that does not have a coefficient for race that conforms to the NKF-ASN Task Force Recommendations. Performed By: #### 4 6124 #### [facility] [address] [place], [place] [id number] Kvng William M.D. [id number] Creatinine [Mass/Vol] 0.77 mg/dL Low 0.80-1.30 [facility] Comment on above: Order Comment: [facility] has implemented the eGFR calculation approach that does not have a coefficient for race that conforms to the NKF-ASN Task Force Recommendations. Performed By: #### 4 6124 #### [facility] [address] [place] [address]994 Kvng William M.D. [id number] EGFR 101 mL/min/1.73 m2 Normal >=60 [facility] Comment on above: Order Comment: [facility] has implemented the eGFR calculation approach that does not have a coefficient for race that conforms to the NKF-ASN Task Force Recommendations. Result Comment: Clarissa mated GFR was calculated using the 2020 CKD-EPI creatinine equation. Performed By: #### 4 [id number] #### [facility] [address] [place] [address] Kvng William M.D. [id number] Glucose [Mass/Vol] 105 mg/dL High 65-99 [facility] Comment on above: Order Comment: [facility] has implemented the eGFR calculation approach that does not have a coefficient for race that conforms to the NKF-ASN Task Force Recommendations. Performed By: #### 4 6124 #### [facility] [address] [place] [address] Kvng William M.D. [id number] HCO3 (Bld) [Moles/Vol] 30 mmol/L Normal 21-32 [facility] Comment on above: Order Comment: [facility] has implemented the eGFR calculation approach that does not have a coefficient for race that conforms to the NKF-ASN Task Force Recommendations. Performed By: #### 4 [id number] #### [facility] [address] [place] [address] 479[address] Kvng William M.D. [id number] Potassium [Moles/Vol] 4.5 mmol/L Normal 3.5-5.1 [facility] Comment on above: Order Comment: [facility] has implemented the eGFR calculation approach that does not have a coefficient for race that conforms to the NKF-ASN Task Force Recommendations. Result Comment: Slig htly Hemolyzed Performed By: #### 4 [id number] #### [facility] [address] [place] [address] Kvng William M.D. [id number] Sodium [Moles/Vol] 140 mmol/L Normal 135-145 [facility] Comment on above: Order Comment: [facility] has implemented the eGFR calculation approach that does not have a coefficient for race that conforms to the NKF-ASN Task Force Recommendations. Performed By: #### 4 [id number] #### [facility] [address] [place] [address] Kvng William M.D. [id number] Urea nitrogen [Mass/Vol] 16 mg/dL Normal 8-25 [facility] Comment on above: Order Comment: [facility] has implemented the eGFR calculation approach that does not have a coefficient for race that conforms to the NKF-ASN Task Force Recommendations. Performed By: #### 4 [id number] #### [facility] [address] [place] [address] Kvng William M.D. [id number] Urea nitrogen/Creatinine [Mass ratio] 20.8 mg/mg High 10.0-20.0 [facility] Comment on above: Order Comment: [facility] has implemented the eGFR calculation approach that does not have a coefficient for race that conforms to the NKF-ASN Task Force Recommendations. Performed By: #### 4 [id number] #### [facility] [address] [place] [address] 48822 Kvng William M.D. [id number] BLOOD GAS, VENOUSon 10-26-19 24 BASE EXCESS, VENOUS 3.7 High -2.0-2.0 [facility] Comment on above: Performed By: #### 4 [id number] #### [facility] [address] [place] [address] 12267Edvin William M.D. [id number] HCO3 (Bld) [Moles/Vol] 33.3 mmol/L High 24.0-28.0 [facility] Comment on above: Performed By: #### 4 [id number] #### [facility] [address] [place] [address] 99072Edvin William M.D. [id number] Hematocrit (Bld) [Volume fraction] 49.6 % Normal 41.0-53.0 [facility] Comment on above: Performed By: #### 4 [id number] #### [facility] [address] [place] [address] 25302 Kvng William M.D. [id number] Hemoglobin (Bld) [Mass/Vol] 16.2 g/dL Normal 13.5-17.5 [facility] Comment on above: Performed By: #### 4 [id number] #### [facility] [address] [place], [place] [address]Digna AbreuD. [id number] Oxygen saturation in Blood 93.1 % High 40.0-70.0 [facility] Comment on above: Performed By: #### 4 [id number] #### [facility] [address] [place], [place] [id number] Kvng William M.D. [id number] PCO2 VENOUS 73.6 mm Hg High 41.0-51.0 [facility] Comment on above: Performed By: #### 4 [id number] #### [facility] [address] [place] [address] Kvng William M.D. [id number] PH VENOUS 7.28 Low 7.32-7.42 [facility] Comment on above: Performed By: #### 4 [id number] #### [facility] [address] [place], [place] [address] Kvng William M.D. [id number] PO2 VENOUS 72 mm Hg High 25-40 [facility] Comment on above: Performed By: #### 4 [id number] #### [facility] [address] [place], [place] [id number] Kvng William M.D. [id number] Basic metabolic 2000 panelOr dered By: Jocelyne Lynn on 10-26-2023 Anion gap [Moles/Vol] 15 mmol/L 10 - 2 0 mmol/L [facility] Calcium [Mass/Vol] 8.8 mg/dL 8.4 - 10. 2 mg/dL [facility] Chloride [Moles/Vol] 100 mmol/L 98 - 10 8 mmol/L [facility] Creatinine [Mass/Vol] 0.77 mg/dL Low 0.80 - 1.30 mg/dL [facility] GFR/1.73 sq M.predicted CKD-EPI (S/P/Bld) [Vol rate/Area] 101 - PINF [facility] Comment on above: Estimated GFR was ca lculated using the 2020 CKD-EPI creatinine equation. Glucose [Mass/Vol] 105 mg/dL High 65 - 99 mg/dL [facility] HCO3 [Moles/Vol] 30 mmol/L 21 - 32 mmol/L [facility] Interpretation and review of laboratory results Abnormal [facility] Potassium [Moles/Vol] 4.5 mmol/L 3.5 - 5.1 mmol/L [facility] Comment on above: Slightly Hemolyzed Sodium [Moles/Vol] 140 mmol/L 135 - 145 mmol/L [facility] Urea nitrogen [Mass/Vol] 16 mg/dL 8 - 25 mg/dL [facility] Urea nitrogen/Creatinine [Mass ratio] 20.8 mg/mg High 10.0 - 20.0 [facility] has implemented the eGFR calculation approach that does not have a coefficient for race that conforms to the NKF-ASN Task Force Recommendations. [facility] CBCon 10-26-2023 AUTO NRBC 0.0 % Normal [facility] Comment on above: Performed By: #### 4 [id number] #### [facility] [address] [place] [address] Kvng William M.D. [id number] AUTO NRBC ABS COUNT 0.00 K/mcL Normal 0.00-0.00 [facility] Comment on above: Performed By: #### 4 [id number] #### [facility] [address] [place], [place] [address] Kvng William M.D. [id number] Erythrocyte distribution width (RBC) [Ratio] 13.6 % Normal 11.6-14.8 [facility] Comment on above: Performed By: #### 4 [id number] #### [facility] [address] [place], [place] [address] Kvng William M.D. [id number] Hematocrit (Bld) [Volume fraction] 48.3 % Normal 41.0-53.0 [facility] Comment on above: Performed By: #### 4 [id number] #### [facility] [address] [place], [place] [address] Kvng William M.D. [id number] Hemoglobin (Bld) [Mass/Vol] 15.5 g/dL Normal 13.5-17.5 [facility] Comment on above: Performed By: #### 4 [id number] #### [facility] [address] [place] [address] 513[address] Kvng William M.D. [id number] MCH (RBC) [Entitic mass] 31.0 pg Normal 26.0-34.0 [facility] Comment on above: Performed By: #### 4 [id number] #### [facility] [address] [place] [address] Kvng William M.D. [id number] MCV (RBC) [Entitic vol] 96.6 fL Normal 80.0-100.0 [facility] Comment on above: Performed By: #### 4 [id number] #### [facility] [address] [place], [place] [address] Kvng William M.D. [id number] MEAN CORPUSCULAR HEMOGLOBIN CONC 32.1 g/dL Normal 31.0-37.0 [facility] Comment on above: Performed By: #### 4 [id number] #### [facility] [address] [place], [place] [address] Kvng William M.D. [id number] Platelet mean volume (Bld) [Entitic vol] 9.8 fL Normal 9.4-12.4 [facility] Comment on above: Performed By: #### 4 [id number] #### [facility] [address] [place], [place] [address] Kvng William M.D. [id number] Platelets (Bld) [#/Vol] 210 10*3/uL Normal 150-400 [facility] Comment on above: Performed By: #### 4 [id number] #### [facility] [address] [place], [place] [address] Kvng William M.D. [id number] RBC (Bld) [#/Vol] 5.00 10*6/uL Normal 4.50-5.90 [facility] Comment on above: Performed By: #### 4 [id number] #### [facility] [address] [place] [address] 04108 Kvng William M.D. [id number] WBC (Bld) [#/Vol] 9.41 10*3/uL Normal 4.50-11.00 [facility] Comment on above: Performed By: #### 4 [id number] #### [facility] [address] [place] [address] 90475 Kvng William M.D. [id number] CBC panel Auto (Bld)on 10-25 Erythrocyte distribution width (RBC) [Entitic vol] 13.6 % 11.6 - 14.8 % [facility] Hematocrit (Bld) [Volume fraction] 48.3 % 41.0 - 53.0 % [facility] Hemoglobin (Bld) [Mass/Vol] 15.5 g/dL 13.5 - 17.5 g/dL [facility] MCH (RBC) [Entitic mass] 31.0 pg 26.0 - 34.0 pg [facility] MCHC (RBC) [Mass/Vol] 32.1 g/dL 31.0 - 37.0 g/dL [facility] MCV (RBC) [Entitic vol] 96.6 fL 80.0 - 100.0 fL [facility] Nucleated RBC (Bld) [#/Vol] 0.00 10*3/uL [facility] Nucleated RBC/100 WBC (Bld) [Ratio] 0.0 % [facility] Platelet mean volume (Bld) [Entitic vol] 9.8 fL 9.4 - 12.4 fL [facility] Platelets (Bld) [#/Vol] 210 10*3/uL [facility] RBC (Bld) [#/Vol] 5.00 10*6/uL [facility] WBC (Bld) [#/Vol] 9.41 10*3/uL [facility] 12-leadon 10-26-2023 Atrial Rate 110 BPM [facility] P [place] 85 degrees [facility] P-R Interval 140 ms [facility] Q-T Interval 304 ms [facility] QRS Duration 90 ms [facility] QTC Calculation (Bezet) 411 ms [facility] R [place] 91 degrees [facility] T [place] 69 degrees [facility] Ventricular Rate 110 BPM [facility] Sin[facility] tachycardia Rightward axis Anterior infarct , age undetermined Abnormal ECG Confirmed by SONNY KEE MD ([id number]) on 10/26/2023 8:22:09 AM MUSE [facility] Gas panel (BldV)Ordered By: Haydee Griggs on 10-26-2023 Base excess Calc (BldV) [Moles/Vol] 3.7 mmol/L High -2.0 - 2.0 [facility] CO2 (BldV) [Partial pressure] 73.6 mm[Hg] High [facility] HCO3 (Bld) [Moles/Vol] 33.3 mmol/L High 24.0 - 28.0 mmol/L [facility] Hematocrit (BldA) [Volume fraction] 49.6 % 41.0 - 53.0 % [facility] Hemoglobin (Bld) [Mass/Vol] 16.2 g/dL 13.5 - 17.5 g/dL [facility] Interpretation and review of laboratory results Abnormal [facility] Oxygen (BldV) [Partial pressure] 72 mm[Hg] High [facility] Oxygen saturation in Venous blood 93.1 % High 40.0 - 70.0 % [facility] pH (BldV) 7.28 [pH] Low 7.32 - 7.42 [facility] MAGNESIUM LEVELon 10-26-2023 Magnesium [Mass/Vol] 2.2 mg/dL Normal 1.6-2.4 [facility] Comment on above: Performed By: #### 4 [id number] #### [facility] [address] [place] [address] Kvng William M.D. [id number] Magnesium Levelon 10-26-2023 Magnesium [Mass/Vol] 2.2 mg/dL 1.6 - 2 .4 mg/dL [facility] Magnesium [Mass/Vol]on 10-25 Interpretation and review of laboratory results Normal [facility] No Panel InformationOrdered By: Jocelyne Lynn on 10-26-2023 [facility] Obtain venous blood gases an d performon 10-26-2023 [facility] XR CHEST PA/APon 10-26-2023 XR CHEST PA/AP EXAMINATION: XR CHEST PA/AP HISTORY: ORDERING SYSTEM PROVIDED HISTORY: shortness of breath, TECHNOLOGIST PROVIDED HISTORY: Illness/Other Reason for exam: shortness of breath Cancer History: unknown Surgery, RadiationHistory: unknown Encounter Type: Initial Additional signs and symptoms: . ORDERING SYSTEM PROVIDED DIAGNOSIS CODES: J44.1 COPD with acute exacerbation (HCC) J44.1 COPD exacerbation (HCC) R09.3 Increased sputum production R06.82 Tachypnea J96.21 Acute on chronic respiratory failure with hypoxia (HCC) COMPARISON: Chest x-ray 10/25/2023 and 01/09/2017. FINDINGS: AP portable view. MEDIASTINUM: Cardiac silhouette is within normal limits. LUNGS AND PLEURA: Pulmonary hyperinflation and upper lung emphysema is stable. Multifocal pulmonary parenchymal scarring redemonstrated. OSSEOUS STRUCTURES AND SOFT TISSUES: No acute osseous abnormality. IMPRESSION: 1. No acute cardiopulmonary abnormality. 2. Stable emphysema, hyperinflation and multifocal pulmonary parenchymal scarring. VKR/f Workstation ID: [id number] Dictated by: NANCY BOWIE on ThuOctober 27, 2023 1:49:53 AM EDT Transcribed by: VINNIE ALFREDO on ThuOctober 27, 2023 1:59:51 AM EDT Finalized by: NANCY BOWIE on ThuOctober 27, 2023 6:00:37 AM EDT Normal [facility] Comment on above: Order Comment: Injur y/Trauma or Illness?:Illness/Other How long have you had these symptoms (acute/chronic)?:Unknown Reason for exam?:shortness of breath History of cancer?:unknown Surgeries, chemotherapy, or radiation?:unknown Type of Exam?:Initial Additional signs and symptoms?:. XR Chest PA and Abdomen APon 10-26-2023 Radiology Study observation (narrative) [facility] BASIC METABOLIC PANELon 10-06 Anion gap [Moles/Vol] 14 mmol/L Normal - [facility] Comment on above: Order Comment: [facility] has implemented the eGFR calculation approach that does not have a coefficient for race that conforms to the NKF-ASN Task Force Recommendations. Performed By: #### 4 [id number] #### [facility] [address] [place] [address] Kvng William M.D. [id number] Calcium [Mass/Vol] 8.2 mg/dL Low 8.4-10.2 [facility] Comment on above: Order Comment: [facility] has implemented the eGFR calculation approach that does not have a coefficient for race that conforms to the NKF-ASN Task Force Recommendations. Performed By: #### 4 [id number] #### [facility] [address] [place] [address] 10378 Kvng William M.D. [id number] Chloride [Moles/Vol] 101 mmol/L Normal 98-108 [facility] Comment on above: Order Comment: [facility] has implemented the eGFR calculation approach that does not have a coefficient for race that conforms to the NKF-ASN Task Force Recommendations. Performed By: #### 4 [id number] #### [facility] [address] [place] [address] 15909 Kvng William M.D. [id number] Creatinine [Mass/Vol] 0.98 mg/dL Normal 0.80-1.30 [facility] Comment on above: Order Comment: [facility] has implemented the eGFR calculation approach that does not have a coefficient for race that conforms to the NKF-ASN Task Force Recommendations. Performed By: #### 4 [id number] #### [facility] [address] [place] [address] 78956 Kvng William M.D. [id number] EGFR 87 mL/min/1.73 m2 Normal >=60 [facility] Comment on above: Order Comment: [facility] has implemented the eGFR calculation approach that does not have a coefficient for race that conforms to the NKF-ASN Task Force Recommendations. Result Comment: Clarissa mated GFR was calculated using the 2020 CKD-EPI creatinine equation. Performed By: #### 4 [id number] #### [facility] [address] [place] [address] 55170 Kvng William M.D. [id number] Glucose [Mass/Vol] 117 mg/dL High 65-99 [facility] Comment on above: Order Comment: [facility] has implemented the eGFR calculation approach that does not have a coefficient for race that conforms to the NKF-ASN Task Force Recommendations. Performed By: #### 4 [id number] #### [facility] [address] [place] [address] 38311 Kvng William M.D. [id number] HCO3 (Bld) [Moles/Vol] 27 mmol/L Normal 21-32 [facility] Comment on above: Order Comment: [facility] has implemented the eGFR calculation approach that does not have a coefficient for race that conforms to the NKF-ASN Task Force Recommendations. Performed By: #### 4 [id number] #### [facility] [address] [place] [address] 69240 Kvng William M.D. [id number] Potassium [Moles/Vol] 4.1 mmol/L Normal 3.5-5.1 [facility] Comment on above: Order Comment: [facility] has implemented the eGFR calculation approach that does not have a coefficient for race that conforms to the NKF-ASN Task Force Recommendations. Performed By: #### 4 [id number] #### [facility] [address] [place] [address] 58635 Kvng William M.D. [id number] Sodium [Moles/Vol] 138 mmol/L Normal 135-145 [facility] Comment on above: Order Comment: [facility] has implemented the eGFR calculation approach that does not have a coefficient for race that conforms to the NKF-ASN Task Force Recommendations. Performed By: #### 4 [id number] #### [facility] [address] [place] [address] 13051 Kvng William M.D. [id number] Urea nitrogen [Mass/Vol] 13 mg/dL Normal 8-25 [facility] Comment on above: Order Comment: [facility] has implemented the eGFR calculation approach that does not have a coefficient for race that conforms to the NKF-ASN Task Force Recommendations. Performed By: #### 4 [id number] #### [facility] [address] [place] [address] 04482 Kvng William M.D. [id number] Urea nitrogen/Creatinine [Mass ratio] 13.3 mg/mg Normal 10.0-20.0 [facility] Comment on above: Order Comment: [facility] has implemented the eGFR calculation approach that does not have a coefficient for race that conforms to the NKF-ASN Task Force Recommendations. Performed By: #### 4 6124 #### [facility] [place], [place] [address] Kvng William M.D. [id number] Basic metabolic 2000 panelon 10-25-2023 Anion gap [Moles/Vol] 14 mmol/L 10 - 2 0 mmol/L [facility] Calcium [Mass/Vol] 8.2 mg/dL Low 8.4 - 10. 2 mg/dL [facility] Chloride [Moles/Vol] 101 mmol/L 98 - 10 8 mmol/L [facility] Creatinine [Mass/Vol] 0.98 mg/dL 0.80 - 1.30 mg/dL [facility] GFR/1.73 sq M.predicted CKD-EPI (S/P/Bld) [Vol rate/Area] 87 - PINF [facility] Comment on above: Estimated GFR was ca lculated using the 2020 CKD-EPI creatinine equation. Glucose [Mass/Vol] 117 mg/dL High 65 - 99 mg/dL [facility] HCO3 [Moles/Vol] 27 mmol/L 21 - 32 mmol/L [facility] Interpretation and review of laboratory results Abnormal [facility] Potassium [Moles/Vol] 4.1 mmol/L 3.5 - 5.1 mmol/L [facility] Sodium [Moles/Vol] 138 mmol/L 135 - 145 mmol/L [facility] Urea nitrogen [Mass/Vol] 13 mg/dL 8 - 25 mg/dL [facility] Urea nitrogen/Creatinine [Mass ratio] 13.3 mg/mg 10.0 - 20.0 [facility] has implemented the eGFR calculation approach that does not have a coefficient for race that conforms to the NKF-ASN Task Force Recommendations. [facility] CBC Auto Differentialon 10-06 Basophils (Bld) [#/Vol] 0.10 10*3/uL [facility] Basophils/100 WBC (Bld) 1.6 % [facility] Eosinophils (Bld) [#/Vol] 0.31 10*3/uL [facility] Eosinophils/100 WBC (Bld) 5.1 % [facility] Erythrocyte distribution width (RBC) [Entitic vol] 13.5 % 11.6 - 14.8 % [facility] Hematocrit (Bld) [Volume fraction] 49.0 % 41.0 - 53.0 % [facility] Hemoglobin (Bld) [Mass/Vol] 15.9 g/dL 13.5 - 17.5 g/dL [facility] Immature granulocytes (Bld) [#/Vol] 0.02 10*3/uL [facility] Immature granulocytes/100 WBC (Bld) 0.30 % [facility] Comment on above: The IG parameter is the percentage of metamyelocytes, myelocytes and promyelocytes. An immature granulocyte count (IG) of 1% or more suggests the possibility of infection, an IG count of 3% is very likely related to an infection. Lymphocytes (Bld) [#/Vol] 0.90 10*3/uL [facility] Lymphocytes/100 WBC (Bld) 14.8 % [facility] MCH (RBC) [Entitic mass] 31.1 pg 26.0 - 34.0 pg [facility] MCHC (RBC) [Mass/Vol] 32.4 g/dL 31.0 - 37.0 g/dL [facility] MCV (RBC) [Entitic vol] 95.9 fL 80.0 - 100.0 fL [facility] Monocytes (Bld) [#/Vol] 0.82 10*3/uL [facility] Monocytes/100 WBC (Bld) 13.4 % [facility] Neutrophils (Bld) [#/Vol] 3.95 10*3/uL [facility] Neutrophils/100 WBC (Bld) 64.8 % [facility] Nucleated RBC (Bld) [#/Vol] 0.00 10*3/uL [facility] Nucleated RBC/100 WBC (Bld) [Ratio] 0.0 % [facility] Platelet mean volume (Bld) [Entitic vol] 9.8 fL 9.4 - 12.4 fL [facility] Platelets (Bld) [#/Vol] 194 10*3/uL [facility] RBC (Bld) [#/Vol] 5.11 10*6/uL [facility] WBC (Bld) [#/Vol] 6.10 10*3/uL [facility] CBC WITH AUTO DIFFERENTIALon 10-25-2023 AUTO NRBC 0.0 % Normal [facility] Comment on above: Performed By: #### L [id number] ####[facility] [address] [place] [address] Kvng William M.D. [id number] AUTO NRBC ABS COUNT 0.00 K/mcL Normal 0.00-0.00 [facility] Comment on above: Performed By: #### L [id number] ####[facility] [address] [place] [address] Kvng William M.D. [id number] BASOPHILS ABSOLUTE COUNT 0.10 K/mcL Normal 0.00-0.30 [facility] Comment on above: Performed By: #### L [id number] ####[facility] [address] [place] [address] Kvng William M.D. [id number] Basophils/100 WBC (Bld) 1.6 % Normal [facility] Comment on above: Performed By: #### L [id number] ####[facility] [address] [place] [address] Kvng William M.D. [id number] Eosinophils (Bld) [#/Vol] 0.31 10*3/uL Normal 0.00-0.50 [facility] Comment on above: Performed By: #### L [id number] ####[facility] [address] [place] [address] Kvng William M.D. [id number] Eosinophils/100 WBC (Bld) 5.1 % Normal [facility] Comment on above: Performed By: #### L [id number] ####[facility] [address] [place] [address] Kvng William M.D. [id number] Erythrocyte distribution width (RBC) [Ratio] 13.5 % Normal 11.6-14.8 [facility] Comment on above: Performed By: #### L [id number] ####[facility] [address] [place] [address] Kvng William M.D. [id number] Hematocrit (Bld) [Volume fraction] 49.0 % Normal 41.0-53.0 [facility] Comment on above: Performed By: #### L [id number] ####[facility] [address] [place] [address] Kvng William M.D. [id number] Hemoglobin (Bld) [Mass/Vol] 15.9 g/dL Normal 13.5-17.5 [facility] Comment on above: Performed By: #### L [id number] ####[facility] [address] [place] [address] Kvng William M.D. [id number] IG ABSOLUTE 0.02 K/mcL Normal 0.00-0.30 [facility] Comment on above: Performed By: #### L [id number] ####[facility] [address] [place] [address] Kvng William M.D. [id number] IG PERCENT 0.30 % Normal [facility] Comment on above: Result Comment: The IG parameter is the percentage of metamyelocytes, myelocytes and promyelocytes. An immature granulocyte count (IG) of 1% or more suggests the possibility of infection, an IG count of 3% is very likely related to an infection. Performed By: #### L [id number] ####[facility] [address] [place] [address] Kvng William M.D. [id number] Lymphocytes (Bld) [#/Vol] 0.90 10*3/uL Normal 0.90-4.00 [facility] Comment on above: Performed By: #### Paresh [id number] ####[facility] [address] [place] [address] Kvng William M.D. [id number] Lymphocytes/100 WBC (Bld) 14.8 % Normal [facility] Comment on above: Performed By: #### Paresh [id number] ####[facility] [address] [place] [address] Kvng William M.D. [id number] MCH (RBC) [Entitic mass] 31.1 pg Normal 26.0-34.0 [facility] Comment on above: Performed By: #### Paresh [id number] ####[facility] [address] [place] [address] Kvng William M.D. [id number] MCV (RBC) [Entitic vol] 95.9 fL Normal 80.0-100.0 [facility] Comment on above: Performed By: #### Paresh [id number] ####[facility] [address] [place] [address] Kvng William M.D. [id number] MEAN CORPUSCULAR HEMOGLOBIN CONC 32.4 g/dL Normal 31.0-37.0 [facility] Comment on above: Performed By: #### Paresh [id number] ####[facility] [address] [place] [address] Kvng William M.D. [id number] Monocytes (Bld) [#/Vol] 0.82 10*3/uL Normal 0.30-0.90 [facility] Comment on above: Performed By: #### Paresh [id number] ####[facility] [address] [place] [address] Kvng William M.D. [id number] Monocytes/100 WBC (Bld) 13.4 % Normal [facility] Comment on above: Performed By: #### L [id number] ####[facility] [address] [place], [place] [address] Kvng William M.D. [id number] NEUTROPHILS ABSOLUTE COUNT 3.95 K/mcL Normal 1.70-7.00 [facility] Comment on above: Performed By: #### L [id number] ####[facility] [address] [place] [address] Kvng William M.D. [id number] Neutrophils/100 WBC (Bld) 64.8 % Normal [facility] Comment on above: Performed By: #### L [id number] ####[facility] [address] [place] [address] Kvng William M.D. [id number] Platelet mean volume (Bld) [Entitic vol] 9.8 fL Normal 9.4-12.4 [facility] [facility] Comment on above: Performed By: #### L [id number] ####[facility] [address] [place] [address] Kvng William M.D. [id number] Platelets (Bld) [#/Vol] 194 10*3/uL Normal 150-400 [facility] Comment on above: Performed By: #### L [id number] ####[facility] [address] [place], [place] [id number] Kvng William M.D. [id number] RBC (Bld) [#/Vol] 5.11 10*6/uL Normal 4.50-5.90 [facility] Comment on above: Performed By: #### L [id number] ####[facility] [address] [place], [place] [id number] Kvng William M.D. [id number] WBC (Bld) [#/Vol] 6.10 10*3/uL Normal 4.50-11.00 [facility] Comment on above: Performed By: #### L [id number] ####[facility] [address] [place] [address] Kvng William M.D. [id number] ED Prov Noteon 10-25-2023 ED Prov Note PCP - Evelin Henry MD Chief Complaint Patient presents with Shortness of Breath HPI/ Medical Decision Making ___ Patient is a 63-year-old male with past medical history of asthma, COPD, hyperlipidemia, hypertension, thoracic aortic aneurysm who presents to the ED for evaluation of shortness of breath. Onset 2 to 3 days ago and progressively worsening. Patient reports shortness of breath is exacerbated by walking. He has tried breathing treatments and inhalers at home without relief. Patient does report some chest pain which is described as burning and worse when he coughs. He does reports a cough productive of white sputum, increasing in frequency compared to his baseline. Denies known fever or chills. Patient denies unilateral lower extremity swelling or redness, history of blood clots, recent travel or immobility, recent surgery or trauma, hormonal medication use, active cancer, or hemoptysis. On chart review, patient was hospitalized for acute respiratory failure with hypoxia and COPD exacerbation on 08/21/2021. Patient states he will use 2 L nasal cannula at home as needed. ED course/Differential diagnoses: Patient is a 63-year-old male who presents to the ED for evaluation of shortness of breath. Differential diagnoses include but not limited to COPD exacerbation, asthma exacerbation, pneumonia, bronchitis. On exam patient is chronically ill-appearing. He is in no acute distress and resting comfortably on the cot. He does cough during my exam and produces white sputum. Accessory muscle usage with coughing but patient recovers and speaks in full sentences on 2 L nasal cannula. He is tachycardic at 116. Tachypneic at 32. Blood pressure 104/76, afebrile, 98% on 2 L. Workup in the ED includes VBG with normal pH, pCO2 at 53, baseline. CBC with no leukocytosis, no anemia, platelets normal. BMP with hyperglycemia at 117. Troponin normal. Chest x-ray with no acute pulmonary disease as interpreted by radiologist. EKG obtained and interpreted by attending. Update: Symptoms consistent with COPD exacerbation. Patient remain tachypneic, he is appropriate for observation. Discussed results and plan with patient. Patient understands and agrees with this plan. Patient was also seen and evaluated by ED attending, Dr. Cabral. Will admit to [facility]. Please see hospital attending physician note for further information and final disposition of this patient. Impressions: 1. COPD exacerbation (HCC) 2. Increased sputum production 3. Tachypnea [facility] Data ED Course as of 10/25/232114 Sun October 25, [id number] Spoke with [facility], agreeable for admission [RO] ED Course User Index [RO] Mirta Christopher PA-C [facility] Data: External Documents/Labs Reviewed, ECG interpreted, X-ray interpretation reviewed, Discussed with consultants/staff, and Shared decision making utilized Previous Records Reviewed . . Labs Reviewed BASIC METABOLIC PANEL - Abnormal; Notable for the following components: Result Value Glucose 117 (*) Calcium 8.2 (*) All other components within normal limits Narrative: [facility] has implemented the eGFR calculation approach that does not have a coefficient for race that conforms to the NKF-ASN Task Force Recommendations. POC VBG LAB([facility]) - RALS - Abnormal; Notable for the following components: pCO2, Edison 53.5 (*) pO2, Edison 58 (*) O2 Sat, Edison 87.3 (*) Hemoglobin, Calculated 18.0 (*) Glucose 120 (*) Ionized Calcium 4.2 (*) All other components within normal limits Narrative: [facility] has implemented the eGFR calculation approach that does not have a coefficient for race that conforms to the NKF-ASN Task Force Recommendations. OBTAIN VENOUS BLOOD GASES AND PERFORM CBC AND DIFFERENTIAL Narrative: The following orders were created for panel order CBC w/ Diff. Procedure Abnormality Status --------- ------ CBC Auto Differential[[id number]] Final result Please view results for these tests on the individual orders. TROPONIN CBC WITH AUTO DIFFERENTIAL Radiographic Imaging (if any) During ED Visit XR Chest 1 View Final Result No acute pulmonary disease. Workstation ID: [id number] Medications Ordered/Given During ED Visit Medications predniSONE (DELTASONE) tablet 60 mg (60 mg Oral Given 10/25/232006) ipratropium-albuteroL (DUO-NEB) 0.5-2.5 mg/3 ml nebulizer solution 3 mL (3 mL Inhalation Given 10/25/231951) albuterol (PROVENTIL) 2.5 mg /3 mL (0.083 %) nebulizer solution 2.5 mg (2.5 mg Inhalation Given 10/25/232048) albuterol (PROVENTIL) 2.5 mg /3 mL (0.083 %) nebulizer solution 2.5 mg (2.5 mg Inhalation Given 10/25/232047) . I saw and evaluated the patient. I have reviewed the chief complaint, triage note, past medical/surgical, family, and social history. END OF MEDICAL DECISION MAKING (more content not included)... Normal [facility] Gold Topon 10-25-2023 Extra Tube Hold for add-ons. [facility] Comment on above: Auto resulted. [facility] No Panel Informationon 10-24 Extra Tube Hold for add-ons. [facility] Comment on above: Auto resulted. [facility] POC VBG LAB(EPOC) - RALSon 0 10-25-2023 BASE EXCESS, VENOUS 1.4 Normal -2.0-2.0 [facility] Comment on above: Order Comment: [facility] has implemented the eGFR calculation approach that does not have a coefficient for race that conforms to the NKF-ASN Task Force Recommendations. Performed By: #### P [id number] ####[facility] [address] [place] [address] Kvng William M.D. [id number] CALCIUM IONIZED 4.2 mg/dL Low 4.5-5.3 [facility] Comment on above: Order Comment: [facility] has implemented the eGFR calculation approach that does not have a coefficient for race that conforms to the NKF-ASN Task Force Recommendations. Performed By: #### P [id number] ####[facility] [address] [place] [address] Kvng William M.D. [id number] Chloride [Moles/Vol] 100 mmol/L Normal 98-108 [facility] Comment on above: Order Comment: [facility] has implemented the eGFR calculation approach that does not have a coefficient for race that conforms to the NKF-ASN Task Force Recommendations. Performed By: #### P [id number] ####[facility] [address] [place] [address] Kvng William M.D. [id number] CO2 [Moles/Vol] 28 mmol/L Normal 21-32 [facility] Comment on above: Order Comment: [facility] has implemented the eGFR calculation approach that does not have a coefficient for race that conforms to the NKF-ASN Task Force Recommendations. Performed By: #### P [id number] ####[facility] [address] [place], [place] [address] Kvng William M.D. [id number] Creatinine [Mass/Vol] 0.90 mg/dL Normal 0.80-1.30 [facility] Comment on above: Order Comment: [facility] has implemented the eGFR calculation approach that does not have a coefficient for race that conforms to the NKF-ASN Task Force Recommendations. Performed By: #### P [id number] ####[facility] [address] [place] [address] Kvng William M.D. [id number] Glucose [Mass/Vol] 120 mg/dL High 65-99 [facility] Comment on above: Order Comment: [facility] has implemented the eGFR calculation approach that does not have a coefficient for race that conforms to the NKF-ASN Task Force Recommendations. Performed By: #### P [id number] ####[facility] [address] [place], [place] [address] Kvng William M.D. [id number] Hematocrit (Bld) [Volume fraction] 53 % Normal 41-53 [facility] Comment on above: Order Comment: [facility] has implemented the eGFR calculation approach that does not have a coefficient for race that conforms to the NKF-ASN Task Force Recommendations. Performed By: #### P [id number] ####[facility] [address] [place] [address] Kvng William M.D. [id number] HEMOGLOBIN, CALCULATED 18.0 g/dL High 13.5-17.5 [facility] Comment on above: Order Comment: [facility] has implemented the eGFR calculation approach that does not have a coefficient for race that conforms to the NKF-ASN Task Force Recommendations. Performed By: #### P [id number] ####[facility] [address] [place], [place] [address] Kvng William M.D. [id number] Oxygen saturation in Blood 87.3 % High 40.0-70.0 [facility] Comment on above: Order Comment: [facility] has implemented the eGFR calculation approach that does not have a coefficient for race that conforms to the NKF-ASN Task Force Recommendations. Performed By: #### P [id number] ####[facility] [address] [place] [address] Kvng William M.D. [id number] PCO2 VENOUS 53.5 mm Hg High 41.0-51.0 [facility] Comment on above: Order Comment: [facility] has implemented the eGFR calculation approach that does not have a coefficient for race that conforms to the NKF-ASN Task Force Recommendations. Performed By: #### P [id number] ####[facility] [address] [place], [place] [address] Kvng William M.D. [id number] PH VENOUS 7.34 Normal 7.32-7.42 [facility] Comment on above: Order Comment: [facility] has implemented the eGFR calculation approach that does not have a coefficient for race that conforms to the NKF-ASN Task Force Recommendations. Performed By: #### P [id number] ####[facility] [address] [place], [place] [address] Kvng William M.D. [id number] PO2 VENOUS 58 mm Hg High 25-40 [facility] Comment on above: Order Comment: [facility] has implemented the eGFR calculation approach that does not have a coefficient for race that conforms to the NKF-ASN Task Force Recommendations. Performed By: #### P [id number] ####[facility] [address] [place], [place] [address] Kvng William M.D. [id number] POC GFR 96 mL/min/1.73 m2 Normal >=60 [facility] Comment on above: Order Comment: [facility] has implemented the eGFR calculation approach that does not have a coefficient for race that conforms to the NKF-ASN Task Force Recommendations. Result Comment: Clarissa mated GFR was calculated using the 2020 CKD-EPI creatinine equation. Performed By: #### P [id number] ####[facility] [address] [place], [place] [address] Kvng William M.D. [id number] POC LACTATE 1.1 mmol/L Normal 0.6-2.0 [facility] Comment on above: Order Comment: [facility] has implemented the eGFR calculation approach that does not have a coefficient for race that conforms to the NKF-ASN Task Force Recommendations. Performed By: #### P [id number] ####[facility] [address] [place] [address] Kvng William M.D. [id number] Potassium [Moles/Vol] 4.0 mmol/L Normal 3.5-5.1 [facility] Comment on above: Order Comment: [facility] has implemented the eGFR calculation approach that does not have a coefficient for race that conforms to the NKF-ASN Task Force Recommendations. Performed By: #### P [id number] ####[facility] [address] [place] [address] Kvng William M.D. [id number] Sodium [Moles/Vol] 138 mmol/L Normal 135-145 [facility] Comment on above: Order Comment: [facility] has implemented the eGFR calculation approach that does not have a coefficient for race that conforms to the NKF-ASN Task Force Recommendations. Performed By: #### P [id number] ####[facility] [address] [place] [address] Kvng William M.D. [id number] Urea nitrogen [Mass/Vol] 13 mg/dL Normal 8-25 [facility] Comment on above: Order Comment: [facility] has implemented the eGFR calculation approach that does not have a coefficient for race that conforms to the NKF-ASN Task Force Recommendations. Performed By: #### P [id number] ####[facility] [address] [place] [address] Kvng William M.D. [id number] POC Venous Blood Gases with Full PanelOrdered By: Devon Burnham on 10-25-2023 Base excess Calc (BldV) [Moles/Vol] 1.4 mmol/L -2.0 - 2.0 [facility] Calcium.ionized [Mass/Vol] 4.2 mg/dL Low 4.5 - 5.3 mg/dL [facility] Chloride [Moles/Vol] 100 mmol/L 98 - 10 8 mmol/L [facility] CO2 (BldV) [Partial pressure] 53.5 mm[Hg] High [facility] CO2 [Moles/Vol] 28 mmol/L 21 - 32 mmol/L [facility] Creatinine [Mass/Vol] 0.90 mg/dL 0.80 - 1.30 mg/dL [facility] GFR/1.73 sq M.predicted CKD-EPI (S/P/Bld) [Vol rate/Area] 96 - PINF [facility] Comment on above: Estimated GFR was ca lculated using the 2020 CKD-EPI creatinine equation. Glucose [Mass/Vol] 120 mg/dL High 65 - 99 mg/dL [facility] Hematocrit (Bld) [Volume fraction] 53 % 41 - 53 % [facility] Hemoglobin (Bld) [Mass/Vol] 18.0 g/dL High 13.5 - 17.5 g/dL [facility] Interpretation and review of laboratory results Abnormal [facility] Lactate (Bld) [Mass/Vol] 1.1 mmol/L 0.6 - 2.0 mmol/L [facility] Oxygen (BldV) [Partial pressure] 58 mm[Hg] High [facility] Oxygen saturation in Venous blood 87.3 % High 40.0 - 70.0 % [facility] pH (BldV) 7.34 [pH] 7.32 - 7.42 [facility] Potassium [Moles/Vol] 4.0 mmol/L 3.5 - 5.1 mmol/L [facility] Sodium [Moles/Vol] 138 mmol/L 135 - 145 mmol/L [facility] Urea nitrogen [Mass/Vol] 13 mg/dL 8 - 25 mg/dL [facility] has implemented the eGFR calculation approach that does not have a coefficient for race that conforms to the NKF-ASN Task Force Recommendations. [facility] TROPONINon 10-25-2023 BASELINE TROPONIN T NG/L 11 ng/L Normal <=22 [facility] Comment on above: Performed By: #### [id number] ####[facility] [address] [place], [place] [address] Kvng William M.D. [id number] TROPONIN T INTERPRETATION Normal Normal [facility] Comment on above: Performed By: #### [id number] ####[facility] [address] [place] [address] Kvng William M.D. [id number] Troponinon 10-25-2023 Troponin T 11 ng/L NINF - 22 ng/L [facility] Troponin T Interpretation Normal [facility] XR CHEST PA/APon 10-25-2023 XR CHEST PA/AP EXAMINATION: XR CHEST PA/AP EXAM DATE: 10/25/2023 6:45 pm HISTORY: ORDERING SYSTEM PROVIDED HISTORY: shortness of breath, TECHNOLOGIST PROVIDED HISTORY: Illness/Other Reason for exam: shortness of breath Cancer History: unknown Surgery, RadiationHistory: unknown Encounter Type: Initial Additional signs and symptoms: - ORDERING SYSTEM PROVIDED DIAGNOSIS CODES: COMPARISON: 09/03/2021 TECHNIQUE: AP view of the chest FINDINGS: The heart and mediastinum are unremarkable. Severe emphysematous changes are again noted with scarring at the left apex and right mid lung.. There is no acute consolidation. IMPRESSION: No acute pulmonary disease. Workstation ID: [id number] Dictated by: YAKOV WAY on ThuOctober 25, 2023 7:20:56 PM EDT Transcribed by: YAKOV WAY on ThuOctober 25, 2023 7:20:56 PM EDT Finalized by: YAKOV WAY on ThuOctober 25, 2023 7:20:56 PM EDT [facility] Comment on above: Order Comment: Injur y/Trauma or Illness?:Illness/Other How long have you had these symptoms (acute/chronic)?:Acute Reason for exam?:shortness of breath History of cancer?:unknown Surgeries, chemotherapy, or radiation?:unknown Type of Exam?:Initial Additional signs and symptoms?:- XR Chest PA and Abdomen APon 10-25-2023 No acute pulmonary disease. Workstation ID: [id number] Veezeon EXAMINATION: XR CHEST PA/AP EXAM DATE: 10/25/2023 6:45 pm HISTORY: ORDERING SYSTEM PROVIDED HISTORY: shortness of breath, TECHNOLOGIST PROVIDED HISTORY: Illness/Other Reason for exam: shortness of breath Cancer History: unknown Surgery, RadiationHistory: unknown Encounter Type: Initial Additional signs and symptoms: - ORDERING SYSTEM PROVIDED DIAGNOSIS CODES: COMPARISON: 09/03/2021 TECHNIQUE: AP view of the chest FINDINGS: The heart and mediastinum are unremarkable. Severe emphysematous changes are again noted with scarring at the left apex and right mid lung.. There is no acute consolidation. Labelby.me RIS Yakov Way MD - 10/25/2023 EXAMINATION: XR CHEST PA/AP EXAM DATE: 10/25/2023 6:45 pm HISTORY: ORDERING SYSTEM PROVIDED HISTORY: shortness of breath, TECHNOLOGIST PROVIDED HISTORY: Illness/Other Reason for exam: shortness of breath Cancer History: unknown Surgery, RadiationHistory: unknown Encounter Type: Initial Additional signs and symptoms: - ORDERING SYSTEM PROVIDED DIAGNOSIS CODES: COMPARISON: 09/03/2021 TECHNIQUE: AP view of the chest FINDINGS: The heart and mediastinum are unremarkable. Severe emphysematous changes are again noted with scarring at the left apex and right mid lung.. There is no acute consolidation. IMPRESSION: No acute pulmonary disease. Workstation ID: [id number] [facility] Radiology Study observation (narrative) [facility] XR Chest PA and Abdomen APOr dered By: Yakov Way on 10-25-2023 [facility] Work Phone: CHEM [phone] (LYTES, BUN CREA)on 0 10-02-2023 Anion gap [Moles/Vol] 10 mmol/L 7 - 17 mmol/L [facility] Chloride [Moles/Vol] 100 mmol/L 98 - 10 8 mmol/L [facility] CO2 [Moles/Vol] 33 mmol/L High 21 - 31 mmol/L [facility] Creatinine [Mass/Vol] 0.90 mg/dL 0.70 - 1.30 mg/dL [facility] eGFR, CKD-EPI, Male - PINF [facility] Comment on above: Reported eGFR is bas ed on the CKD-EPI 2020 equation using creatinine, age, and sex. Potassium [Moles/Vol] 4.0 mmol/L 3.5 - 5.0 mmol/L [facility] Sodium [Moles/Vol] 139 mmol/L 135 - 145 mmol/L [facility] Urea nitrogen [Mass/Vol] 11 mg/dL 7 - 25 mg/dL [facility] Urea nitrogen/Creatinine [Mass ratio] 12 mg/mg [facility] HEMOGLOBIN A1Con 10-02-2023 Average glucose Estimated from glycated hemoglobin (Bld) [Mass/Vol] 108 mg/dL [facility] HbA1c (Bld) [Mass fraction] 5.4 % 4.7 - 5.6 % [facility] HEPATIC FUNCTION PANELon Albumin [Mass/Vol] 4.0 g/dL 3.5 - 5.0 g/dL [facility] ALP [Catalytic activity/Vol] 115 U/L 32 - 126 U/L [facility] ALT [Catalytic activity/Vol] 22 U/L 10 - 52 U/L [facility] AST [Catalytic activity/Vol] 15 U/L 10 - 39 U/L [facility] Bilirubin [Mass/Vol] 0.4 mg/dL NINF - 1.5 mg/dL [facility] Bilirubin.direct [Mass/Vol] 0.1 mg/dL NINF - 0.3 mg/dL [facility] Protein [Mass/Vol] 6.7 g/dL 6.4 - 8.3 g/dL [facility] LIPID PANEL W CALCULATED LDL on 10-02-2023 Cholesterol [Mass/Vol] 144 mg/dL NINF - 200 mg/dL [facility] Comment on above: [<200 mg/dL: Desirab le] [200-239 mg/dL: Borderline High] [>239 mg/dL: High] Cholesterol in HDL [Mass/Vol] 34 mg/dL Low 40 - PINF mg/dL [facility] Comment on above: [<40 mg/dL: Low (Hig h Risk)] [>59 mg/dL: High (Low Risk)] Cholesterol in LDL [Mass/Vol] 82 mg/dL 0 - 99 mg/dL [facility] Comment on above: [<100 mg/dL: Optimal ] [100-129 mg/dL: Near Optimal] [130-159 mg/dL: Borderline High] [160-189 mg/dL: High] [>189 mg/dL: Very High] Cholesterol non HDL [Mass/Vol] 110 mg/dL NINF - 130 mg/dL [facility] Cholesterol.total/Cho lesterol in HDL [Mass ratio] 4.2 {ratio} NINF - 4.5 [facility] Triglyceride [Mass/Vol] 141 mg/dL NINF - 150 mg/dL [facility] Comment on above: [<150 mg/dL: Desirab le] [150-199 mg/dL: Borderline] [200-499 mg/dL: High] [>500 mg/dL: Very High] MAGNESIUMon 10-02-2023 Magnesium [Mass/Vol] 2.1 mg/dL 1.6 - 2 .6 mg/dL [facility] No Panel Informationon 10-01 Interpretation and review of laboratory results Abnormal [facility] Interpretation and review of laboratory results Normal [facility] PSA, SCREENINGon 10-02-2023 Interpretation and review of laboratory results Abnormal [facility] Prostate specific Ag [Mass/Vol] 6.72 ng/mL High NINF - 4.00 ng/mL [facility] Comment on above: This test was perfor med on the [employer] Immunoassay platform which is a 2-step sandwich chemiluminescent immunoassay. It is important to note that assays using different manufacturers and/or methods may not be comparable. [facility] Basic metabolic 2000 panelon 08-21-2021 Anion gap [Moles/Vol] 17 mmol/L 10 - 2 0 mmol/L [facility] Calcium [Mass/Vol] 9.7 mg/dL 8.4 - 10. 2 mg/dL [facility] Chloride [Moles/Vol] 94 mmol/L Low 98 - 10 8 mmol/L [facility] Creatinine [Mass/Vol] 0.71 mg/dL Low 0.80 - 1.30 [facility] GFR/1.73 sq M.predicted CKD-EPI (S/P/Bld) [Vol rate/Area] 101 >=60 mL/min/1.73 m2 [facility] Glucose [Mass/Vol] 120 mg/dL High 65 - 99 mg/dL [facility] HCO3 [Moles/Vol] 30 mmol/L 21 - 32 mmol/L [facility] Interpretation and review of laboratory results Abnormal [facility] Potassium [Moles/Vol] 4.3 mmol/L 3.5 - 5.1 mmol/L [facility] Sodium [Moles/Vol] 137 mmol/L 135 - 145 mmol/L [facility] Urea nitrogen [Mass/Vol] 17 mg/dL 8 - 25 mg/dL [facility] Urea nitrogen/Creatinine [Mass ratio] 23.9 mg/mg High [facility] The eGFR should be u sed for monitoring renal function only and not for medication dosing. [facility] CBC Auto Differentialon 08-06 Basophils (Bld) [#/Vol] 0.04 10*3/uL [facility] Basophils/100 WBC (Bld) 0.2 % [facility] Eosinophils (Bld) [#/Vol] 0.00 10*3/uL [facility] Eosinophils/100 WBC (Bld) 0.0 % [facility] Erythrocyte distribution width (RBC) [Entitic vol] 13.0 % 11.6 - 14.8 % [facility] Hematocrit (Bld) [Volume fraction] 44.4 % 41.0 - 53.0 % [facility] Hemoglobin (Bld) [Mass/Vol] 14.7 g/dL 13.5 - 17.5 g/dL [facility] Immature granulocytes (Bld) [#/Vol] 0.22 10*3/uL [facility] Immature granulocytes/100 WBC (Bld) 1.00 % [facility] Comment on above: The IG parameter is the percentage of metamyelocytes, myelocytes and promyelocytes. An immature granulocyte count (IG) of 1% or more suggests the possibility of infection, an IG count of 3% is very likely related to an infection. Interpretation and review of laboratory results Abnormal [facility] Lymphocytes (Bld) [#/Vol] 0.65 10*3/uL Low [facility] Lymphocytes/100 WBC (Bld) 2.9 % [facility] MCH (RBC) [Entitic mass] 31.7 pg 26.0 - 34.0 pg [facility] MCHC (RBC) [Mass/Vol] 33.1 g/dL 31.0 - 37.0 g/dL [facility] MCV (RBC) [Entitic vol] 95.7 fL 80.0 - 100.0 fL [facility] Monocytes (Bld) [#/Vol] 1.28 10*3/uL High [facility] Monocytes/100 WBC (Bld) 5.8 % [facility] Neutrophils (Bld) [#/Vol] 19.92 10*3/uL High [facility] Neutrophils/100 WBC (Bld) 90.1 % [facility] Nucleated RBC (Bld) [#/Vol] 0.00 10*3/uL [facility] Nucleated RBC/100 WBC (Bld) [Ratio] 0.0 % [facility] Platelet mean volume (Bld) [Entitic vol] 9.2 fL Low 9.4 - 12.4 fL [facility] Platelets (Bld) [#/Vol] 343 10*3/uL [facility] RBC (Bld) [#/Vol] 4.64 10*6/uL [facility] ealth WBC (Bld) [#/Vol] 22.11 10*3/uL [facility] CBC Auto Differentialon 08-06 Basophils (Bld) [#/Vol] 0.02 10*3/uL [facility] Basophils/100 WBC (Bld) 0.1 % [facility] Eosinophils (Bld) [#/Vol] 0.00 10*3/uL [facility] Eosinophils/100 WBC (Bld) 0.0 % [facility] Erythrocyte distribution width (RBC) [Entitic vol] 13.1 % 11.6 - 14.8 % [facility] Hematocrit (Bld) [Volume fraction] 42.4 % 41.0 - 53.0 % [facility] Hemoglobin (Bld) [Mass/Vol] 14.1 g/dL 13.5 - 17.5 g/dL [facility] Immature granulocytes (Bld) [#/Vol] 0.10 10*3/uL [facility] Immature granulocytes/100 WBC (Bld) 0.70 % [facility] Comment on above: The IG parameter is the percentage of metamyelocytes, myelocytes and promyelocytes. An immature granulocyte count (IG) of 1% or more suggests the possibility of infection, an IG count of 3% is very likely related to an infection. Interpretation and review of laboratory results Abnormal [facility] Lymphocytes (Bld) [#/Vol] 0.50 10*3/uL Low [facility] Lymphocytes/100 WBC (Bld) 3.3 % [facility] MCH (RBC) [Entitic mass] 32.0 pg 26.0 - 34.0 pg [facility] MCHC (RBC) [Mass/Vol] 33.3 g/dL 31.0 - 37.0 g/dL [facility] MCV (RBC) [Entitic vol] 96.4 fL 80.0 - 100.0 fL [facility] Monocytes (Bld) [#/Vol] 0.16 10*3/uL Low [facility] Monocytes/100 WBC (Bld) 1.0 % [facility] Neutrophils (Bld) [#/Vol] 14.54 10*3/uL High [facility] Neutrophils/100 WBC (Bld) 94.9 % [facility] Nucleated RBC (Bld) [#/Vol] 0.00 10*3/uL [facility] Nucleated RBC/100 WBC (Bld) [Ratio] 0.0 % [facility] Platelet mean volume (Bld) [Entitic vol] 9.6 fL 9.4 - 12.4 fL [facility] Platelets (Bld) [#/Vol] 280 10*3/uL [facility] RBC (Bld) [#/Vol] 4.40 10*6/uL Low [facility] ealth WBC (Bld) [#/Vol] 15.32 10*3/uL High [facility] Comprehensive metabolic 2000 panelon 08-20-2021 Albumin [Mass/Vol] 3.9 g/dL 3.2 - 5.2 g/dL [facility] ALP [Catalytic activity/Vol] 92 U/L 40 - 150 U/L [facility] ALT [Catalytic activity/Vol] 10 U/L 0 - 40 U/L [facility] Anion gap [Moles/Vol] 18 mmol/L 10 - 2 0 mmol/L [facility] AST [Catalytic activity/Vol] 10 U/L 0 - 45 U/L [facility] Bilirubin [Mass/Vol] 0.2 mg/dL 0.0 - 1 .3 mg/dL [facility] Calcium [Mass/Vol] 8.8 mg/dL 8.4 - 10. 2 mg/dL [facility] Chloride [Moles/Vol] 96 mmol/L Low 98 - 10 8 mmol/L [facility] Creatinine [Mass/Vol] 0.80 mg/dL 0.80 - 1.30 [facility] GFR/1.73 sq M.predicted CKD-EPI (S/P/Bld) [Vol rate/Area] 96 >=60 mL/min/1.73 m2 [facility] Glucose [Mass/Vol] 207 mg/dL High 65 - 99 mg/dL [facility] HCO3 [Moles/Vol] 23 mmol/L 21 - 32 mmol/L [facility] Interpretation and review of laboratory results Abnormal [facility] Potassium [Moles/Vol] 4.2 mmol/L 3.5 - 5.1 mmol/L [facility] Protein [Mass/Vol] 6.3 g/dL 6.0 - 8.0 g/dL [facility] Sodium [Moles/Vol] 133 mmol/L Low 135 - 145 mmol/L [facility] Urea nitrogen [Mass/Vol] 19 mg/dL 8 - 25 mg/dL [facility] Urea nitrogen/Creatinine [Mass ratio] 23.8 mg/mg High [facility] The eGFR should be u sed for monitoring renal function only and not for medication dosing. [facility] Drugs of Abuse Screen, Urine on 08-20-2021 Amphetamines Ql (U) Not detected None Detected [facility] Comment on above: Urine Amphetamine Cu toff: < 1000 ng/mL = None Detected Barbiturates Screen Ql (U) Not detected None Detected [facility] Comment on above: Urine Barbiturates C utoff: < 200 ng/mL = None Detected Benzodiazepines Ql (U) Not detected None Detected [facility] Comment on above: Urine Benzodiazepine Cutoff: < 200 ng/mL = None Detected Buprenorphine Ql (U) Positive Abnormal None Detected [facility] Comment on above: Urine Buprenorphine Cutoff: < 5 ng/mL = None Detected Cannabinoids Screen Ql (U) Not detected None Detected [facility] Comment on above: Urine Cannabinoids C utoff: < 50 ng/mL = None Detected Cocaine Ql (U) Not detected None Detected [facility] Comment on above: Urine Cocaine Cutoff : < 300 ng/mL = None Detected fentaNYL+Norfentanyl Screen Ql (U) Not detected None Detected [facility] Comment on above: Urine Fentanyl Cutof f: < 1 ng/mL = None Detected Interpretation and review of laboratory results Abnormal [facility] Methadone Screen Ql (U) Not detected None Detected [facility] Comment on above: Urine Methadone Cuto ff: < 300 ng/mL = None Detected Opiates Screen Ql (U) Not detected None Detecte d [facility] Comment on above: Urine Opiates Cutoff : < 300 ng/mL = None Detected oxyCODONE Ql (U) Not detected None Detected [facility] Comment on above: Urine Oxycodone Cuto ff: < 100 ng/mL = None Detected Screen results shoul d be used for treatment purposes only. Specimen will be kept for 2 weeks, if the sample is adequate. Confirmation testing can be initiated by calling the lab within 2 weeks. [facility] ECG 12 Leadon 08-20-2021 Atrial Rate 120 BPM [facility] P [place] 84 degrees [facility] P-R Interval 148 ms [facility] Q-T Interval 312 ms [facility] QRS Duration 90 ms [facility] QTC Calculation (Bezet) 440 ms [facility] R [place] 70 degrees [facility] T [place] 69 degrees [facility] Ventricular Rate 120 BPM [facility] Sinus tachycardia Anterior infarct (cited on or before 13-DEC-2020) Abnormal ECG When compared with ECG of 24-MAY-2021 10:55, No significant change was found Confirmed by Physician, ED ([id number]), photo editor CARMEN FLEMING ([id number]) on 08/20/2021 9:32:34 AM MUSE [facility] HbA1c (Bld) [Mass fraction]o n 08-20-2021 Average glucose Estimated from glycated hemoglobin (Bld) [Mass/Vol] 108 mg/dL 74 - 114 mg/dL [facility] Interpretation and review of laboratory results Normal [facility] Hemoglobin A1con 08-20-2021 HbA1c (Bld) [Mass fraction] 5.4 % 4.2 - 5.6 % [facility] INR Coag (PPP) [Relative marlen e]on 08-20-2021 Interpretation and review of laboratory results Normal [facility] PT Coag (PPP) [Time] 14.3 s [facility] During the induction phase of oral anticoagulation, the INR may not reflect the anticoagulation status of the patient. Therapeutic ranges for INR's are: Most clinical situations: INR 2.0-3.0 Mechanical Prosthetic Valve: INR 2.5-3.5 Critical: INR >5.0 [facility] Magnesiumon 08-20-2021 Magnesium [Mass/Vol] 2.1 mg/dL 1.6 - 2 .4 mg/dL [facility] Magnesium [Mass/Vol]on 08-20 Interpretation and review of laboratory results Normal [facility] No Panel Informationon 08-20 [facility] PT/INRon 08-20-2021 INR Coag (PPP) [Relative time] 1.1 {INR} [facility] Phosphate [Mass/Vol]on 08-20 Interpretation and review of laboratory results Normal [facility] Phosphoruson 08-20-2021 Phosphate [Mass/Vol] 2.4 mg/dL 2.3 - 3 .7 mg/dL [facility] S. pneumoniae Urine AntigenO rdered By: Mirta Jorge on 08-20-2021 Interpretation and review of laboratory results Normal [facility] S. pneumoniae Ag Ql (U) Negative Presumptive Negative for Pneumococcal pneumoniae [facility] Comment on above: A negative result rice ggests no current or recent pneumococcal infection. A negative result does not rule out Streptococcus pneumoniae infection since the antigen present in the sample may be below the detection limit of the test. [facility] TSH DL <= 0.005 mIU/L QnOrde red By: Zi Locke on 08-20-2021 Interpretation and review of laboratory results Normal [facility] TSH Qn 0.45 m[IU]/L [facility] Basic metabolic 2000 panelon 08-19-2021 Anion gap [Moles/Vol] 15 mmol/L 10 - 2 0 mmol/L [facility] Calcium [Mass/Vol] 9.0 mg/dL 8.4 - 10. 2 mg/dL [facility] Chloride [Moles/Vol] 97 mmol/L Low 98 - 10 8 mmol/L [facility] Creatinine [Mass/Vol] 0.95 mg/dL 0.80 - 1.30 [facility] GFR/1.73 sq M.predicted CKD-EPI (S/P/Bld) [Vol rate/Area] 86 >=60 mL/min/1.73 m2 [facility] Glucose [Mass/Vol] 110 mg/dL High 65 - 99 mg/dL [facility] HCO3 [Moles/Vol] 29 mmol/L 21 - 32 mmol/L [facility] Interpretation and review of laboratory results Abnormal [facility] Potassium [Moles/Vol] 4.1 mmol/L 3.5 - 5.1 mmol/L [facility] Sodium [Moles/Vol] 137 mmol/L 135 - 145 mmol/L [facility] Urea nitrogen [Mass/Vol] 10 mg/dL 8 - 25 mg/dL [facility] Urea nitrogen/Creatinine [Mass ratio] 10.5 mg/mg [facility] The eGFR should be u sed for monitoring renal function only and not for medication dosing. [facility] Blood Gas, Venous with Full PanelOrdered By: Stephanie Christopher on 08-19-2021 Base excess Calc (BldV) [Moles/Vol] 3.5 mmol/L High [facility] Calcium.ionized [Mass/Vol] 4.6 mg/dL 4.5 - 5.3 mg/dL [facility] Carboxyhemoglobin (BldA) [Mass fraction] 2.9 High <=1.5 % of total Hb [facility] Comment on above: Reference Ranges: [place] Non-smokers: <1.5% Smokers: 1.5-5.0% Heavy Smokers: 5.0-9.0% CO2 (BldV) [Partial pressure] 53.7 mm[Hg] High [facility] Glucose [Mass/Vol] 94 mg/dL 65 - 99 mg/dL [facility] HCO3 (Bld) [Moles/Vol] 29.9 mmol/L High 24.0 - 28.0 mmol/L [facility] Hematocrit (BldA) [Volume fraction] 49.0 % 41.0 - 53.0 % [facility] Hemoglobin (Bld) [Mass/Vol] 16.0 g/dL 13.5 - 17.5 g/dL [facility] Interpretation and review of laboratory results Abnormal [facility] Lactate [Moles/Vol] 1.6 mmol/L 0.6 - 2. 0 mmol/L [facility] Methemoglobin (BldA) [Mass fraction] 0.5 % 0.0 - 2.0 % [facility] Oxygen (BldV) [Partial pressure] 36 mm[Hg] [facility] Oxygen saturation in Venous blood 63.1 % 40.0 - 70.0 % [facility] Oxyhemoglobin (BldA) [Mass fraction] 61.0 % No established reference range [facility] pH (BldV) 7.37 [pH] [facility] Potassium [Moles/Vol] 4.1 mmol/L 3.5 - 5.1 mmol/L [facility] Sodium [Moles/Vol] 139 mmol/L 135 - 145 mmol/L [facility] CBC Auto Differentialon 08-06 Basophils (Bld) [#/Vol] 0.11 10*3/uL [facility] Basophils/100 WBC (Bld) 0.5 % [facility] Eosinophils (Bld) [#/Vol] 0.06 10*3/uL [facility] Eosinophils/100 WBC (Bld) 0.3 % [facility] Erythrocyte distribution width (RBC) [Entitic vol] 13.2 % 11.6 - 14.8 % [facility] Hematocrit (Bld) [Volume fraction] 47.5 % 41.0 - 53.0 % [facility] Hemoglobin (Bld) [Mass/Vol] 15.9 g/dL 13.5 - 17.5 g/dL [facility] Immature granulocytes (Bld) [#/Vol] 0.23 10*3/uL [facility] Immature granulocytes/100 WBC (Bld) 1.00 % [facility] Comment on above: The IG parameter is the percentage of metamyelocytes, myelocytes and promyelocytes. An immature granulocyte count (IG) of 1% or more suggests the possibility of infection, an IG count of 3% is very likely related to an infection. Interpretation and review of laboratory results Abnormal [facility] Lymphocytes (Bld) [#/Vol] 1.36 10*3/uL [facility] Lymphocytes/100 WBC (Bld) 6.1 % [facility] MCH (RBC) [Entitic mass] 32.1 pg 26.0 - 34.0 pg [facility] MCHC (RBC) [Mass/Vol] 33.5 g/dL 31.0 - 37.0 g/dL [facility] MCV (RBC) [Entitic vol] 96.0 fL 80.0 - 100.0 fL [facility] Monocytes (Bld) [#/Vol] 1.31 10*3/uL High [facility] Monocytes/100 WBC (Bld) 5.8 % [facility] Neutrophils (Bld) [#/Vol] 19.36 10*3/uL [facility] Neutrophils/100 WBC (Bld) 86.3 % [facility] Nucleated RBC (Bld) [#/Vol] 0.00 10*3/uL [facility] Nucleated RBC/100 WBC (Bld) [Ratio] 0.0 % [facility] Platelet mean volume (Bld) [Entitic vol] 8.9 fL Low 9.4 - 12.4 fL [facility] Platelets (Bld) [#/Vol] 346 10*3/uL [facility] RBC (Bld) [#/Vol] 4.95 10*6/uL [facility] WBC (Bld) [#/Vol] 22.43 10*3/uL [facility] COVID-19, MolecularOrdered B y: Lorena Metcalf on 08-19-2021 SARS-CoV-2 (COVID-19) RNA MOMO+probe Ql (Resp) Not detected Not Detected [facility] CT Pulmonary Arterieson 08-06 No evidence of pulmonary embolism. Extensive diffuse centrilobular pulmonary emphysema. Mild areas of patchy opacities are noted in the left mid to lower lung which could represent areas of fibrosis, less likely infectious/inflammatory process. Workstation ID: [id number] [employer] [facility] [[email or web address] EXAMINATION: CTA OF THE CHEST 08/19/2021 TECHNIQUE: CTA of the chest was performed after the administration of intravenous contrast. Multiplanar reformatted images are provided for review. MIP images are provided for review. Dose modulation, iterative reconstruction, and/or weight based adjustment of the mA/kV was utilized to reduce the radiation dose to as low as reasonably achievable. COMPARISON: None. HISTORY: ORDERING SYSTEM PROVIDED HISTORY: hypoxia, chest pain; elevated d-dimer; TECHNOLOGIST PROVIDED HISTORY: Illness/Other Acuity: Acute Reason for Exam: hypoxia, chest pain; elevated d-dimer Type of Encounter: Initial Additional signs and symptoms: hypoxia, chest pain; elevated d-dimer ORDERING SYSTEM PROVIDED DIAGNOSIS CODES: J44.1 Acute exacerbation of chronic obstructive pulmonary disease (COPD) ([facility]) J96.01 Acute respiratory failure with hypoxia ([facility]) R00.0 Tachycardia FINDINGS: Pulmonary Arteries: Pulmonary arteries are adequately opacified for evaluation. No evidence of intraluminal filling defect to suggest pulmonary embolism. Main pulmonary artery is normal in caliber. Mediastinum: No evidence of mediastinal lymphadenopathy. The heart and pericardium demonstrate no acute abnormality. There is no acute abnormality of the thoracic aorta. Lungs/pleura: Extensive diffuse centrilobular pulmonary emphysema. Mild areas of patchy opacities are noted in the left mid to lower lung which could represent areas of fibrosis, less likely infectious/inflammatory process. The lungs are without acute process. No focal consolidation or pulmonary edema. No evidence of pleural effusion or pneumothorax. Upper Abdomen: Limited images of the upper abdomen are unremarkable. Soft Tissues/Bones: No acute bone or soft tissue abnormality. [employer] Shakira Win MD - 08/19/2021 EXAMINATION: CTA OF THE CHEST 08/19/2021 TECHNIQUE: CTA of the chest was performed after the administration of intravenous contrast. Multiplanar reformatted images are provided for review. MIP images are provided for review. Dose modulation, iterative reconstruction, and/or weight based adjustment of the mA/kV was utilized to reduce the radiation dose to as low as reasonably achievable. COMPARISON: None. HISTORY: ORDERING SYSTEM PROVIDED HISTORY: hypoxia, chest pain; elevated d-dimer; TECHNOLOGIST PROVIDED HISTORY: Illness/Other Acuity: Acute Reason for Exam: hypoxia, chest pain; elevated d-dimer Type of Encounter: Initial Additional signs and symptoms: hypoxia, chest pain; elevated d-dimer ORDERING SYSTEM PROVIDED DIAGNOSIS CODES: J44.1 Acute exacerbation of chronic obstructive pulmonary disease (COPD) ([facility]) J96.01 Acute respiratory failure with hypoxia ([facility]) R00.0 Tachycardia FINDINGS: Pulmonary Arteries: Pulmonary arteries are adequately opacified for evaluation. No evidence of intraluminal filling defect to suggest pulmonary embolism. Main pulmonary artery is normal in caliber. Mediastinum: No evidence of mediastinal lymphadenopathy. The heart and pericardium demonstrate no acute abnormality. There is no acute abnormality of the thoracic aorta. Lungs/pleura: Extensive diffuse centrilobular pulmonary emphysema. Mild areas of patchy opacities are noted in the left mid to lower lung which could represent areas of fibrosis, less likely infectious/inflammatory process. The lungs are without acute process. No focal consolidation or pulmonary edema. No evidence of pleural effusion or pneumothorax. Upper Abdomen: Limited images of the upper abdomen are unremarkable. Soft Tissues/Bones: No acute bone or soft tissue abnormality. IMPRESSION: No evidence of pulmonary embolism. Extensive diffuse centrilobular pulmonary emphysema. Mild areas of patchy opacities are noted in the left mid to lower lung which could represent areas of fibrosis, less likely infectious/inflammatory process. Workstation ID: [id number] [facility] Radiology Study observation (narrative) [facility] CT Pulmonary ArteriesOrdered By: Shakira Albrecht on 08-19-2021 [facility] Work Phone: D-Dimer, QuantitativeOrdered By: Elpidio Eisenberg on 08-19-2021 Fibrin D-dimer FEU (PPP) [Mass/Vol] 0.54 High 0.27 - 0.49 mcg/mL FEU [facility] Interpretation and review of laboratory results Abnormal [facility] A D-dimer concentrat ion of <0.5 micrograms per milliliter FEU is considered a low probability for pulmonary embolus (PE) and deep venous thrombosis (DVT). Results of this test should always be interpreted in conjunction with the patient's medical history,clinical presentation, and other findings. Clinical diagnosis should not be based on the results of the D-dimer alone. [facility] EKG 12-leadon 08-19-2021 Interpretation and review of laboratory results Abnormal [facility] Paige Perla MD 08/19/2021 5:32 PM EKG 12-lead Date/Time: 08/19/2021 5:32 PM Performed by: Paige Perla MD Authorized by: Zoe Moreira CNP Interpreted by ED attending physician Rhythm: sinus rhythm and sinus tachycardia BPM: 120 Conduction: conduction normal ST Segments: ST segments normal T Flattening: I and V2 Clinical impression: abnormal ECG and sinus tachycardia [facility] Munoz Topon 08-19-2021 Extra Tube Hold for add-ons. [facility] Comment on above: Auto resulted. [facility] NT Pro BNPon 08-19-2021 Natriuretic peptide.B prohormone N-Terminal [Mass/Vol] 67 pg/mL 0 - 300 pg/mL [facility] Natriuretic peptide.B prohor mary N-Terminal [Mass/Vol]on 08-19-2021 Interpretation and review of laboratory results Normal [facility] Pride Study Cut-offs Rule In: < /= 50 Years >450 pg/mL 51 Years - 75 Years >900 pg/mL 76 Years - 99 Years >1800 pg/mL Rule Out: All patients <300 pg/mL [facility] No Panel Informationon 08-19 Extra Tube Hold for add-ons. [facility] Comment on above: Auto resulted. [facility] Extra Tube Hold for add-ons. [facility] Comment on above: Auto resulted. [facility] SARS-CoV-2 (COVID-19) RNA NA A+probe Ql (Resp)Ordered By: Lorena Metcalf on 08-19-2021 Interpretation and review of laboratory results Normal [facility] This test was perfor med under the FDA's Emergency Use Authorization (EUA). Testing was performed using the Dimit[employer] Panda SARS-CoV-2 RT-PCR & Influenza A/B Nucleic Acid Test on the [employer] System. This test has not been approved for use in asymptomatic patients and its performance in this patient population has not been evaluated. Negative results do not rule out the presence of SARS-CoV-2, influenza A, and/or influenza B. Fact sheets for the EUA can be found at the following links: For Healthcare Providers: https://www.fda.gov/media /516067/download For Patients: https://www.fda.gov/media /053501/download [facility] Troponinon 08-19-2021 Troponin T 15 ng/L <=22 [facility] Troponin T Interpretation Normal [facility] Troponin Onceon 08-19-2021 Delta Difference Troponin T -4 ng/L < = -/+ 7 change [facility] Interp Troponin T Delta Change No biomarker evidence of cardiac injury. [facility] Troponin T 11 ng/L <=22 [facility] XR Chest 1 Viewon 08-19-2021 1. No acute cardiopulmonary process identified. Workstation ID: [id number] GE RIS EXAMINATION: ONE XRAY VIEW OF THE CHEST 08/19/2021 5:20 pm COMPARISON: Chest x-ray May 24, 2021; CT chest January 24, 2021; chest x-ray December 13, 2020 HISTORY: ORDERING SYSTEM PROVIDED HISTORY: cp sob; TECHNOLOGIST PROVIDED HISTORY: Illness/Other Acuity: Acute Reason for Exam: cp sob Type of Encounter: Initial Additional signs and symptoms: none given FINDINGS: Cardiac silhouette is stable. Chronic emphysematous changes of the lungs. No focal consolidation identified. No pleural effusion or pneumothorax. Osseous structures are intact. GE RIS George Mercedes III, MD - 08/19/2021 EXAMINATION: ONE XRAY VIEW OF THE CHEST 08/19/2021 5:20 pm COMPARISON: Chest x-ray May 24, 2021; CT chest January 24, 2021; chest x-ray December 13, 2020 HISTORY: ORDERING SYSTEM PROVIDED HISTORY: cp sob; TECHNOLOGIST PROVIDED HISTORY: Illness/Other Acuity: Acute Reason for Exam: cp sob Type of Encounter: Initial Additional signs and symptoms: none given FINDINGS: Cardiac silhouette is stable. Chronic emphysematous changes of the lungs. No focal consolidation identified. No pleural effusion or pneumothorax. Osseous structures are intact. IMPRESSION: 1. No acute cardiopulmonary process identified. Workstation ID: [id number] [facility] Radiology Study observation (narrative) [facility] XR Chest 1 ViewOrdered By: Casey Mercedes on 08-19-2021 [facility] Work Phone: AIRWAY ETTon 01-28-2021 George Fam II 01/28/2021 2:48 PM ETT Airway Mask ventilation: ventilated by mask (2 person) Technique: video laryngoscopy Type: cuffed oral Tube size: 7.5 mm Final laryngoscope: video laryngoscope 3 LoPro Location: oral Final grade: 1 Insertion attempts: 1 Placement verification: auscultation, end tidal CO2 and symmetrical chest wall movement Secured at: 23 cm (measured from the lips) Secured by: tape Bite block: soft Lip/tooth/tongue trauma: no [facility] SPINAL BLOCKon 01-28-2021 George Fam II 01/28/2021 2:48 PM Spinal Patient location: OR Start time: 01/28/2021 1:40 PM End time: 01/28/2021 1:45 PM Reason for block: procedure for pain Staff Anesthesiologist: Dioni Padron MD SRNA: George Fam II Preanesthetic Checklist Completed: patient identified, pre-op evaluation, risks and benefits discussed, informed consent obtained, monitors and equipment checked, IV checked, site marked and timeout performed Procedure Monitoring: heart rate, sales trainer, pulse oximetry and BP Patient sedated with meaningful contract? yes (see MAR for details) Patient position: sitting Preparation: mask, cap, sterile gloves, hand hygiene and sterile drape Prep: Betadine Approach: midline Final location: L4-5 Local infiltration: lidocaine 1% Injection technique: single-shot Final needle: Pencan 25 G x 3.5 in Number of attempts: 1 Events: blood not aspirated, injection not painful, no injection resistance, CSF with spinal needle and paresthesia did not occur with needle placement Patient tolerance: patient tolerated the procedure well with no immediate complications [facility] MRSA Culture/ScreenOrdered B y: Simba Christina on 01-16-2021 MRSA isol Org specific cx Ql (Unsp spec) Heavy Growth Staphylococcus aureus Abnormal [facility] MRSA isol Org specific cx Ql (Unsp spec)Ordered By: Simba Christina on 01-16-2021 Interpretation and review of laboratory results Abnormal [facility] APTTon 01-14-2021 aPTT Coag (Bld) [Time] 29 s [facility] Albuminon 01-14-2021 Albumin [Mass/Vol] 4.1 g/dL 3.2 - 5.2 g/dL [facility] Albumin [Mass/Vol]on 021 Interpretation and review of laboratory results Normal [facility] Basic metabolic 2000 panelon 01-14-2021 Anion gap [Moles/Vol] 14 mmol/L 10 - 2 0 mmol/L [facility] Calcium [Mass/Vol] 9.0 mg/dL 8.4 - 10. 2 mg/dL [facility] Chloride [Moles/Vol] 97 mmol/L Low 98 - 10 8 mmol/L [facility] Creatinine [Mass/Vol] 0.76 mg/dL 0.50 - 1.30 [facility] GFR/1.73 sq M.predicted CKD-EPI (S/P/Bld) [Vol rate/Area] 99 >=60 mL/min/1.73 m2 [facility] Glucose [Mass/Vol] 114 mg/dL High 65 - 99 mg/dL [facility] [Moles/Vol] 29 mmol/L 21 - 32 mmol/L [facility] Potassium [Moles/Vol] 3.5 mmol/L 3.5 - 5.1 mmol/L [facility] Sodium [Moles/Vol] 136 mmol/L 135 - 145 mmol/L [facility] Urea nitrogen [Mass/Vol] 9 mg/dL 8 - 25 mg/dL [facility] Urea nitrogen/Creatinine [Mass ratio] 11.8 mg/mg [facility] The eGFR should be u sed for monitoring renal function only and not for medication dosing. [facility] Blood type and Indirect anti body screen panel (Bld)on 01-14-2021 ABO and Rh group Nom (Bld) Blood group A Rh(D) negative [facility] Blood group antibody screen Ql Negative [facility] Specimen Expires 02/01/2021 23:59 EST [facility] CBC WITH AUTO DIFFERENTIALon 01-14-2021 Basophils (Bld) [#/Vol] 0.07 10*3/uL [facility] Basophils/100 WBC (Bld) 0.9 % [facility] Eosinophils (Bld) [#/Vol] 0.64 10*3/uL High [facility] Eosinophils/100 WBC (Bld) 8.7 % [facility] Erythrocyte distribution width (RBC) [Entitic vol] 13.3 % 11.6 - 14.8 % [facility] Hematocrit (Bld) [Volume fraction] 44.5 % 41.0 - 53.0 % [facility] Hemoglobin (Bld) [Mass/Vol] 14.5 g/dL 13.5 - 17.5 g/dL [facility] Immature granulocytes (Bld) [#/Vol] 0.01 10*3/uL [facility] Immature granulocytes/100 WBC (Bld) 0.10 % [facility] Comment on above: The IG parameter is the percentage of metamyelocytes, myelocytes and promyelocytes. An immature granulocyte count (IG) of 1% or more suggests the possibility of infection, an IG count of 3% is very likely related to an infection. Interpretation and review of laboratory results Abnormal [facility] Lymphocytes (Bld) [#/Vol] 1.93 10*3/uL [facility] Lymphocytes/100 WBC (Bld) 26.1 % [facility] MCH (RBC) [Entitic mass] 31.5 pg 26.0 - 34.0 pg [facility] MCHC (RBC) [Mass/Vol] 32.6 g/dL 31.0 - 37.0 g/dL [facility] MCV (RBC) [Entitic vol] 96.7 fL 80.0 - 100.0 fL [facility] Monocytes (Bld) [#/Vol] 0.70 10*3/uL [facility] Monocytes/100 WBC (Bld) 9.5 % [facility] Neutrophils (Bld) [#/Vol] 4.04 10*3/uL [facility] Neutrophils/100 WBC (Bld) 54.7 % [facility] Nucleated RBC (Bld) [#/Vol] 0.00 10*3/uL [facility] Nucleated RBC/100 WBC (Bld) [Ratio] 0.0 % [facility] Platelet mean volume (Bld) [Entitic vol] 9.1 fL Low 9.4 - 12.4 fL [facility] Platelets (Bld) [#/Vol] 253 10*3/uL [facility] RBC (Bld) [#/Vol] 4.60 10*6/uL [facility] WBC (Bld) [#/Vol] 7.39 10*3/uL [facility] eah [facility] CRP, Inflammationon 01-15-20 CRP [Mass/Vol] 15.5 mg/L High 0.0 - 10.0 mg/L [facility] ESR Westergren method (Bld) [Velocity]Ordered By: Brent Silva on 01-14-2021 ESR (Bld) [Velocity] 15 mm/h [facility] Interpretation and review of laboratory results Normal [facility] INR Coag (PPP) [Relative marlen e]on 01-14-2021 PT Coag (PPP) [Time] 12.7 s [facility] During the induction phase of oral anticoagulation, the INR may not reflect the anticoagulation status of the patient. Therapeutic ranges for INR's are: Most clinical situations: INR 2.0-3.0 Mechanical Prosthetic Valve: INR 2.5-3.5 Critical: INR >5.0 [facility] No Panel Informationon 01-14 Interpretation and review of laboratory results Abnormal [facility] Interpretation and review of laboratory results Normal [facility] PT/INRon 01-14-2021 INR Coag (PPP) [Relative time] 1.0 {INR} [facility] aPTT Coag (Bld) [Time]on Therapeutic range fo r APTT's is 68 - 104 seconds [facility] BLOOD GAS, VBG WITH FULL WILLARD ELOrdered By: Ugo Ochoa on 12-13-2020 Base excess Calc (BldV) [Moles/Vol] 4.8 mmol/L High [facility] Calcium.ionized [Mass/Vol] 4.3 mg/dL Low 4.5 - 5.3 mg/dL [facility] Carboxyhemoglobin (BldA) [Mass fraction] 7.0 High <=1.5 % of total Hb [facility] Comment on above: Reference Ranges: [place] Non-smokers: <1.5% Smokers: 1.5-5.0% Heavy Smokers: 5.0-9.0% CO2 (BldV) [Partial pressure] 42.3 mm[Hg] [facility] Glucose [Mass/Vol] 139 mg/dL High 65 - 99 mg/dL [facility] HCO3 (Bld) [Moles/Vol] 28.9 mmol/L High 24.0 - 28.0 mmol/L [facility] Hematocrit (BldA) [Volume fraction] 42.2 % 41.0 - 53.0 % [facility] Hemoglobin (Bld) [Mass/Vol] 13.7 g/dL 13.5 - 17.5 g/dL [facility] Interpretation and review of laboratory results Abnormal [facility] Lactate [Moles/Vol] 2.4 mmol/L High 0.6 - 2. 0 mmol/L [facility] Methemoglobin (BldA) [Mass fraction] 0.5 % 0.0 - 2.0 % [facility] Oxygen (BldV) [Partial pressure] 58 mm[Hg] High [facility] Oxygen saturation in Venous blood 92.7 % High 40.0 - 70.0 % [facility] Oxyhemoglobin (BldA) [Mass fraction] 85.7 % No established reference range [facility] pH (BldV) 7.45 [pH] High [facility] Potassium [Moles/Vol] 3.7 mmol/L 3.5 - 5.1 mmol/L [facility] Sodium [Moles/Vol] 138 mmol/L 135 - 145 mmol/L [facility] Type of Oxygen saturation device Unknown [facility] Basic metabolic 1998 panelOr dered By: Ugo Ochoa on 07-08-2021 Anion gap [Moles/Vol] 16 mmol/L 10 - 2 0 mmol/L [facility] Chloride [Moles/Vol] 100 mmol/L 98 - 10 8 mmol/L [facility] Creatinine [Mass/Vol] 0.74 mg/dL 0.50 - 1.30 [facility] GFR/1.73 sq M.predicted CKD-EPI (S/P/Bld) [Vol rate/Area] 100 >=60 mL/min/1.73 m2 [facility] Glucose [Mass/Vol] 135 mg/dL High 65 - 99 mg/dL [facility] HCO3 [Moles/Vol] 26 mmol/L 21 - 32 mmol/L [facility] Interpretation and review of laboratory results Abnormal [facility] Potassium [Moles/Vol] 3.2 mmol/L Low 3.5 - 5.1 mmol/L [facility] Sodium [Moles/Vol] 139 mmol/L 135 - 145 mmol/L [facility] Urea nitrogen [Mass/Vol] 7 mg/dL Low 8 - 25 mg/dL [facility] Urea nitrogen/Creatinine [Mass ratio] 9.5 mg/mg Low [facility] The eGFR should be u sed for monitoring renal function only and not for medication dosing. [facility] CBC WITH AUTO DIFFERENTIALOr dered By: Ugo Ochoa on 12-13-2020 Basophils (Bld) [#/Vol] 0.05 10*3/uL [facility] Basophils/100 WBC (Bld) 0.9 % [facility] Eosinophils (Bld) [#/Vol] 0.31 10*3/uL [facility] Eosinophils/100 WBC (Bld) 5.7 % [facility] Erythrocyte distribution width (RBC) [Entitic vol] 13.2 % 11.6 - 14.8 % [facility] Hematocrit (Bld) [Volume fraction] 40.8 % Low 41.0 - 53.0 % [facility] Hemoglobin (Bld) [Mass/Vol] 13.8 g/dL 13.5 - 17.5 g/dL [facility] Immature granulocytes (Bld) [#/Vol] 0.01 10*3/uL [facility] Immature granulocytes/100 WBC (Bld) 0.20 % [facility] Comment on above: The IG parameter is the percentage of metamyelocytes, myelocytes and promyelocytes. An immature granulocyte count (IG) of 1% or more suggests the possibility of infection, an IG count of 3% is very likely related to an infection. Interpretation and review of laboratory results Abnormal [facility] Lymphocytes (Bld) [#/Vol] 1.40 10*3/uL [facility] Lymphocytes/100 WBC (Bld) 25.8 % [facility] MCH (RBC) [Entitic mass] 31.8 pg 26.0 - 34.0 pg [facility] MCHC (RBC) [Mass/Vol] 33.8 g/dL 31.0 - 37.0 g/dL [facility] MCV (RBC) [Entitic vol] 94.0 fL 80.0 - 100.0 fL [facility] Monocytes (Bld) [#/Vol] 0.50 10*3/uL [facility] Monocytes/100 WBC (Bld) 9.2 % [facility] Neutrophils (Bld) [#/Vol] 3.16 10*3/uL [facility] Neutrophils/100 WBC (Bld) 58.2 % [facility] Nucleated RBC (Bld) [#/Vol] 0.00 10*3/uL [facility] Nucleated RBC/100 WBC (Bld) [Ratio] 0.0 % [facility] Platelet mean volume (Bld) [Entitic vol] 10.0 fL 9.4 - 12.4 fL [facility] Platelets (Bld) [#/Vol] 222 10*3/uL [facility] RBC (Bld) [#/Vol] 4.34 10*6/uL Low [facility] ealt WBC (Bld) [#/Vol] 5.43 10*3/uL [facility] eah [facility] ECG 12-LEADOrdered By: Cardi ologist Generic on 12-13-2020 Atrial Rate 93 BPM [facility] P [place] 79 degrees [facility] P-R Interval 166 ms [facility] Q-T Interval 362 ms [facility] QRS Duration 108 ms [facility] QTC Calculation (Bezet) 450 ms [facility] R [place] 52 degrees [facility] T [place] 79 degrees [facility] Ventricular Rate 93 BPM [facility] th Normal sinus rhythm Septal infarct , age undetermined Abnormal ECG When compared with ECG of 21-SEP-2020 11:16, Septal infarct is now Present Confirmed by Physician, ED ([id number]), photo editor CARMEN FLEMING ([id number]) on 12/13/2020 12:49:33 PM [facility] EKGOrdered By: Provider Syst em on 12-13-2020 Ordered by an unspec ified provider. [facility] INR Coag (PPP) [Relative marlen e]Ordered By: Ugo Ochoa on 12-13-2020 Interpretation and review of laboratory results Normal [facility] PT Coag (PPP) [Time] 11.9 s [facility] During the induction phase of oral anticoagulation, the INR may not reflect the anticoagulation status of the patient. Therapeutic ranges for INR's are: Most clinical situations: INR 2.0-3.0 Mechanical Prosthetic Valve: INR 2.5-3.5 Critical: INR >5.0 [facility] Obtain venous blood gases an d performOrdered By: Ugo Ochoa on 12-13-2020 [facility] PT/INROrdered By: Ugo palumbo on 12-13-2020 INR Coag (PPP) [Relative time] 0.9 {INR} [facility] SARS-CoV-2 (COVID-19) RdRp g ulices MOMO+probe Ql (Resp)Ordered By: Kvng Baker on 12-13-2020 Interpretation and review of laboratory results Normal [facility] SARS-CoV-2 (COVID-19) RNA MOMO+probe Ql (Resp) Not detected Not Detected [facility] This test was perfor med under the FDA's Emergency Use Authorization (EUA). Testing was performed using the Dimitris Panda SARS-CoV-2 RT-PCR & Influenza A/B Nucleic Acid Test on the Panda Nadja System. This test has not been approved for use in asymptomatic patients and its performance in this patient population has not been evaluated. Negative results do not rule out the presence of SARS-CoV-2, influenza A, and/or influenza B. Fact sheets for the EUA can be found at the following links: For Healthcare Providers: https://www.fda.gov/media /705322/download For Patients: https://www.fda.gov/media /007058/download [facility] XR Chest 1 ViewOrdered By: Duran Ochoa on 12-13-2020 1. No obvious radiop aque foreign body. 2. Elevated right hemidiaphragm with chronic right basilar opacity. 3. Improved aeration of the left lung since the prior exam. Workstation ID: [id number] [facility] EXAMINATION: ONE XRAY VIEW OF THE CHEST 12/13/2020 12:24 pm COMPARISON: Chest x-ray 08/11/2020 HISTORY: ORDERING SYSTEM PROVIDED HISTORY: Dysphagia; TECHNOLOGIST PROVIDED HISTORY: Illness/Other Acuity: Acute Reason for Exam: Dysphagia Type of Encounter: Initial Additional signs and symptoms: Dysphagia ORDERING SYSTEM PROVIDED DIAGNOSIS CODES: T18.108A Foreign body in esophagus, initial encounter FINDINGS: No obvious radiopaque foreign body along course of the esophagus. Right hemidiaphragm remains elevated with associated right basilar opacity. The opacity in the left lung has improved. No new parenchymal opacities. Costophrenic angles are grossly clear. Cardiac and mediastinal structures are unchanged. The bones are grossly intact. [facility], Rad In Fu ji Speechq - 12/13/2020 1:39 PM EDT EXAMINATION: ONE XRAY VIEW OF THE CHEST 12/13/2020 12:24 pm COMPARISON: Chest x-ray 08/11/2020 HISTORY: ORDERING SYSTEM PROVIDED HISTORY: Dysphagia; TECHNOLOGIST PROVIDED HISTORY: Illness/Other Acuity: Acute Reason for Exam: Dysphagia Type of Encounter: Initial Additional signs and symptoms: Dysphagia ORDERING SYSTEM PROVIDED DIAGNOSIS CODES: T18.108A Foreign body in esophagus, initial encounter FINDINGS: No obvious radiopaque foreign body along course of the esophagus. Right hemidiaphragm remains elevated with associated right basilar opacity. The opacity in the left lung has improved. No new parenchymal opacities. Costophrenic angles are grossly clear. Cardiac and mediastinal structures are unchanged. The bones are grossly intact. IMPRESSION: 1. No obvious radiopaque foreign body. 2. Elevated right hemidiaphragm with chronic right basilar opacity. 3. Improved aeration of the left lung since the prior exam. Workstation ID: [id number] [facility] XR Hip Right 2-3 Views (Rout ine)Ordered By: Triage Emergency on 10-03-2020 No acute abnormality of the right hip. Severe osteoarthritic changes of the right hip joint which appears slightly increased. Workstation ID: [id number] [facility] EXAMINATION: TWO XRA Y VIEWS OF THE RIGHT HIP 10/03/2020 7:22 pm COMPARISON: None. HISTORY: ORDERING SYSTEM PROVIDED HISTORY: pain; TECHNOLOGIST PROVIDED HISTORY: Injury/Trauma Acuity: Acute Reason for Exam: pain Type of Encounter: Initial Mechanism of Injury: fall from ladder FINDINGS: Severe osteoarthritic changes are present, appearing slightly increased. Bone on bone contact. Subchondral cystic change, periarticular osteophytosis and subchondral sclerosis. No acute fracture. No dislocation. [facility] Interface, Rad In Fu ji Speechq - 10/03/2020 7:52 PM EDT EXAMINATION: TWO XRAY VIEWS OF THE RIGHT HIP 10/03/2020 7:22 pm COMPARISON: None. HISTORY: ORDERING SYSTEM PROVIDED HISTORY: pain; TECHNOLOGIST PROVIDED HISTORY: Injury/Trauma Acuity: Acute Reason for Exam: pain Type of Encounter: Initial Mechanism of Injury: fall from ladder FINDINGS: Severe osteoarthritic changes are present, appearing slightly increased. Bone on bone contact. Subchondral cystic change, periarticular osteophytosis and subchondral sclerosis. No acute fracture. No dislocation. IMPRESSION: No acute abnormality of the right hip. Severe osteoarthritic changes of the right hip joint which appears slightly increased. Workstation ID: [id number] [facility] BLOOD GAS, VBG WITH FULL WILLARD ELOrdered By: Ugo Ochoa on 09-21-2020 Base excess Calc (BldV) [Moles/Vol] 3.9 mmol/L High [facility] Calcium.ionized [Mass/Vol] 4.8 mg/dL 4.5 - 5.3 mg/dL [facility] Carboxyhemoglobin (BldA) [Mass fraction] 2.7 High <=1.5 % of total Hb [facility] Comment on above: Reference Ranges: [place] Non-smokers: <1.5% Smokers: 1.5-5.0% Heavy Smokers: 5.0-9.0% CO2 (BldV) [Partial pressure] 58.5 mm[Hg] High [facility] Glucose [Mass/Vol] 100 mg/dL High 65 - 99 mg/dL [facility] HCO3 (Bld) [Moles/Vol] 30.9 mmol/L High 24.0 - 28.0 mmol/L [facility] Hematocrit (BldA) [Volume fraction] 45.6 % 41.0 - 53.0 % [facility] Hemoglobin (Bld) [Mass/Vol] 14.9 g/dL 13.5 - 17.5 g/dL [facility] Interpretation and review of laboratory results Abnormal [facility] Lactate [Moles/Vol] 1.2 mmol/L 0.6 - 2. 0 mmol/L [facility] Methemoglobin (BldA) [Mass fraction] 0.3 % 0.0 - 2.0 % [facility] Oxygen (BldV) [Partial pressure] 33 mm[Hg] [facility] Oxygen saturation in Venous blood 59.3 % 40.0 - 70.0 % [facility] Oxyhemoglobin (BldA) [Mass fraction] 57.5 % No established reference range [facility] pH (BldV) 7.34 [pH] [facility] Potassium [Moles/Vol] 3.7 mmol/L 3.5 - 5.1 mmol/L [facility] Sodium [Moles/Vol] 141 mmol/L 135 - 145 mmol/L [facility] Basic metabolic 2000 panelOr dered By: Laci Johnson on 09-21-2020 Anion gap [Moles/Vol] 11 mmol/L 10 - 2 0 mmol/L [facility] Calcium [Mass/Vol] 8.8 mg/dL 8.4 - 10. 2 mg/dL [facility] Chloride [Moles/Vol] 101 mmol/L 98 - 10 8 mmol/L [facility] Creatinine [Mass/Vol] 0.72 mg/dL 0.50 - 1.30 [facility] GFR/1.73 sq M.predicted CKD-EPI (S/P/Bld) [Vol rate/Area] 101 >=60 mL/min/1.73 m2 [facility] Glucose [Mass/Vol] 111 mg/dL High 65 - 99 mg/dL [facility] HCO3 [Moles/Vol] 29 mmol/L 21 - 32 mmol/L [facility] Interpretation and review of laboratory results Abnormal [facility] Potassium [Moles/Vol] 3.6 mmol/L 3.5 - 5.1 mmol/L [facility] Sodium [Moles/Vol] 137 mmol/L 135 - 145 mmol/L [facility] Urea nitrogen [Mass/Vol] 10 mg/dL 8 - 25 mg/dL [facility] Urea nitrogen/Creatinine [Mass ratio] 13.9 mg/mg [facility] The eGFR should be u sed for monitoring renal function only and not for medication dosing. [facility] CBC WITH AUTO DIFFERENTIALOr dered By: Laci Johnson on 09-21-2020 Basophils (Bld) [#/Vol] 0.07 10*3/uL [facility] Basophils/100 WBC (Bld) 0.9 % [facility] Eosinophils (Bld) [#/Vol] 0.83 10*3/uL High [facility] Eosinophils/100 WBC (Bld) 10.8 % [facility] Erythrocyte distribution width (RBC) [Entitic vol] 13.3 % 11.6 - 14.8 % [facility] Hematocrit (Bld) [Volume fraction] 43.7 % 41.0 - 53.0 % [facility] Hemoglobin (Bld) [Mass/Vol] 14.2 g/dL 13.5 - 17.5 g/dL [facility] Immature granulocytes (Bld) [#/Vol] 0.02 10*3/uL [facility] Immature granulocytes/100 WBC (Bld) 0.30 % [facility] Comment on above: The IG parameter is the percentage of metamyelocytes, myelocytes and promyelocytes. An immature granulocyte count (IG) of 1% or more suggests the possibility of infection, an IG count of 3% is very likely related to an infection. Interpretation and review of laboratory results Abnormal [facility] Lymphocytes (Bld) [#/Vol] 1.25 10*3/uL [facility] Lymphocytes/100 WBC (Bld) 16.3 % [facility] MCH (RBC) [Entitic mass] 30.7 pg 26.0 - 34.0 pg [facility] MCHC (RBC) [Mass/Vol] 32.5 g/dL 31.0 - 37.0 g/dL [facility] MCV (RBC) [Entitic vol] 94.6 fL 80.0 - 100.0 fL [facility] Monocytes (Bld) [#/Vol] 0.55 10*3/uL [facility] Monocytes/100 WBC (Bld) 7.2 % [facility] Neutrophils (Bld) [#/Vol] 4.93 10*3/uL [facility] Neutrophils/100 WBC (Bld) 64.5 % [facility] Nucleated RBC (Bld) [#/Vol] 0.00 10*3/uL [facility] Nucleated RBC/100 WBC (Bld) [Ratio] 0.0 % [facility] Platelet mean volume (Bld) [Entitic vol] 8.7 fL Low 9.4 - 12.4 fL [facility] Platelets (Bld) [#/Vol] 289 10*3/uL [facility] RBC (Bld) [#/Vol] 4.62 10*6/uL [facility] WBC (Bld) [#/Vol] 7.65 10*3/uL [facility] COVID-19/Influenza A,B Molec ularOrdered By: Laci Johnson on 09-21-2020 SARS-CoV-2 (COVID-19) RNA MOMO+probe Ql (Resp) Not detected Not Detected [facility] ECG 12-LEADOrdered By: Ugo Ochoa on 09-21-2020 Ugo Ochoa MD 09/21/2020 1:57 PM ECG 12 Lead Date/Time: 09/21/2020 1:55 PM Performed by: Ugo Ochoa MD Authorized by: Ugo Ochoa MD Interpreted by ED attending physician Comparison: not compared with previous ECG Rhythm: sinus rhythm BPM: 99 Conduction: conduction normal ST Segments: ST segments normal T Waves: T waves normal Clinical impression: normal ECG [facility] ECG 12-LEADOrdered By: Miguel ologist Mendoza on 09-21-2020 Atrial Rate 99 BPM [facility] P [place] 82 degrees [facility] P-R Interval 150 ms [facility] Q-T Interval 346 ms [facility] QRS Duration 96 ms [facility] QTC Calculation (Bezet) 444 ms [facility] R [place] 74 degrees [facility] T [place] 73 degrees [facility] Ventricular Rate 99 BPM [facility] Normal sinus rhythm Normal ECG When compared with ECG of 13-AUG-2020 06:14, QRS axis Shifted left Confirmed by Physician, ED ([id number]), photo editor CARMEN FLEMING ([id number]) on 09/21/2020 1:52:25 PM [facility] NT Pro BNPOrdered By: Laci Johnson on 09-21-2020 Natriuretic peptide.B prohormone N-Terminal [Mass/Vol] <50 0 - 300 pg/mL [facility] Natriuretic peptide.B prohor mary N-Terminal [Mass/Vol]Ordered By: Laci Johnson on 09-21-2020 Interpretation and review of laboratory results Normal [facility] Pride Study Cut-offs Rule In: < /= 50 Years >450 pg/mL 51 Years - 75 Years >900 pg/mL 76 Years - 99 Years >1800 pg/mL Rule Out: All patients <300 pg/mL [facility] No Panel InformationOrdered By: Ugo Ochoa on 09-21-2020 Extra Tube Hold for add-ons. [facility] Comment on above: Auto resulted. SARS-CoV-2 (COVID-19) RNA NA A+probe Ql (Resp)Ordered By: Laci Johnson on 09-21-2020 Influenza A Not detected Not Detected [facility] Influ[facility] B Not detected Not [facility] Interpretation and review of laboratory results Normal [facility] This test was perfor med under the FDA's Emergency Use Authorization (EUA). Testing was performed using the Dimitris Panda SARS-CoV-2 RT-PCR & Influenza A/B Nucleic Acid Test on the Panda Nadja System. This test has not been approved for use in asymptomatic patients and its performance in this patient population has not been evaluated. Negative results do not rule out the presence of SARS-CoV-2, influenza A, and/or influenza B. Fact sheets for the EUA can be found at the following links: For Healthcare Providers: https://www.fda.gov/media /902476/download For Patients: https://www.fda.gov/media /401490/download [facility] TROPONINOrdered By: Laci gustafson on 09-21-2020 Troponin T 12 ng/L <=22 [facility] Troponin T Interpretation Normal [facility] Basic Metabolic Panelon 03- Anion gap [Moles/Vol] 12 mmol/L 10 - 2 0 mmol/L [facility] Calcium [Mass/Vol] 8.6 mg/dL 8.4 - 10. 2 mg/dL [facility] Chloride [Moles/Vol] 102 mmol/L 98 - 10 8 mmol/L [facility] Creatinine [Mass/Vol] 0.53 mg/dL 0.50 - 1.30 Oh [facility] GFR/1.73 sq M predicted among non-blacks MDRD (S/P/Bld) [Vol rate/Area] The eGFR should be used for monitoring renal function only and not for medication dosing. [facility] GFR/1.73 sq M.predicted CKD-EPI (S/P/Bld) [Vol rate/Area] 115 >=60 mL/min/1.73 m2 [facility] Glucose [Mass/Vol] 108 mg/dL High 65 - 99 mg/dL [facility] [Moles/Vol] 27 mmol/L 21 - 32 mmol/L [facility] Interpretation and review of laboratory results Abnormal [facility] Potassium [Moles/Vol] 3.7 mmol/L 3.5 - 5.1 mmol/L [facility] Sodium [Moles/Vol] 137 mmol/L 135 - 145 mmol/L [facility] Urea nitrogen [Mass/Vol] 13 mg/dL 8 - 25 mg/dL [facility] Urea nitrogen/Creatinine [Mass ratio] 24.5 mg/mg High [facility] CBC WITH AUTO DIFFERENTIALon 08-13-2020 Basophils (Bld) [#/Vol] 0.02 10*3/uL [facility] Basophils/100 WBC (Bld) 0.3 % [facility] Eosinophils (Bld) [#/Vol] 0.19 10*3/uL [facility] Eosinophils/100 WBC (Bld) 2.4 % [facility] Erythrocyte distribution width (RBC) [Entitic vol] 13.0 % 11.6 - 14.8 % [facility] Hematocrit (Bld) [Volume fraction] 36.7 % Low 41.0 - 53.0 % [facility] Hemoglobin (Bld) [Mass/Vol] 11.8 g/dL Low 13.5 - 17.5 g/dL [facility] Immature granulocytes (Bld) [#/Vol] 0.06 10*3/uL [facility] Immature granulocytes/100 WBC (Bld) 0.80 % [facility] Comment on above: The IG parameter is the percentage of metamyelocytes, myelocytes and promyelocytes. An immature granulocyte count (IG) of 1% or more suggests the possibility of infection, an IG count of 3% is very likely related to an infection. Interpretation and review of laboratory results Abnormal [facility] Lymphocytes (Bld) [#/Vol] 1.42 10*3/uL [facility] Lymphocytes/100 WBC (Bld) 18.0 % [facility] MCH (RBC) [Entitic mass] 31.0 pg 26.0 - 34.0 pg [facility] MCHC (RBC) [Mass/Vol] 32.2 g/dL 31.0 - 37.0 g/dL [facility] MCV (RBC) [Entitic vol] 96.3 fL 80.0 - 100.0 fL [facility] Monocytes (Bld) [#/Vol] 1.06 10*3/uL High [facility] Monocytes/100 WBC (Bld) 13.4 % [facility] Neutrophils (Bld) [#/Vol] 5.14 10*3/uL [facility] Neutrophils/100 WBC (Bld) 65.1 % [facility] Nucleated RBC (Bld) [#/Vol] 0.00 10*3/uL [facility] Nucleated RBC/100 WBC (Bld) [Ratio] 0.0 % [facility] Platelet mean volume (Bld) [Entitic vol] 9.3 fL Low 9.4 - 12.4 fL [facility] Platelets (Bld) [#/Vol] 275 10*3/uL [facility] RBC (Bld) [#/Vol] 3.81 10*6/uL Low [facility] ealth WBC (Bld) [#/Vol] 7.89 10*3/uL [facility] ealt ECG 12-LEADon 08-13-2020 Atrial Rate 97 BPM [facility] P [place] 119 degrees [facility] P-R Interval 144 ms [facility] Q-T Interval 338 ms [facility] QRS Duration 94 ms [facility] QTC Calculation (Bezet) 429 ms [facility] R [place] 128 degrees [facility] T [place] 115 degrees [facility] Ventricular Rate 97 BPM [facility] th Suspect arm lead reversal, interpretation assumes no reversal Normal sinus rhythm Right axis deviation Septal infarct , age undetermined Abnormal ECG When compared with ECG of 10-AUG-2020 10:44, QRS axis Shifted right Septal infarct is now Present Confirmed by NATHALIA BOYER, TAVON ([id number]) on 08/13/2020 2:20:21 PM [facility] Basic Metabolic Panelon Anion gap [Moles/Vol] 14 mmol/L 10 - 2 0 mmol/L [facility] Calcium [Mass/Vol] 9.0 mg/dL 8.4 - 10. 2 mg/dL [facility] Chloride [Moles/Vol] 98 mmol/L 98 - 10 8 mmol/L [facility] Creatinine [Mass/Vol] 0.55 mg/dL 0.50 - 1.30 [facility] GFR/1.73 sq M predicted among non-blacks MDRD (S/P/Bld) [Vol rate/Area] The eGFR should be used for monitoring renal function only and not for medication dosing. [facility] GFR/1.73 sq M.predicted CKD-EPI (S/P/Bld) [Vol rate/Area] 113 >=60 mL/min/1.73 m2 [facility] Glucose [Mass/Vol] 107 mg/dL High 65 - 99 mg/dL [facility] HCO3 [Moles/Vol] 28 mmol/L 21 - 32 mmol/L [facility] Interpretation and review of laboratory results Abnormal [facility] Potassium [Moles/Vol] 3.7 mmol/L 3.5 - 5.1 mmol/L [facility] Sodium [Moles/Vol] 136 mmol/L 135 - 145 mmol/L [facility] Urea nitrogen [Mass/Vol] 10 mg/dL 8 - 25 mg/dL [facility] Urea nitrogen/Creatinine [Mass ratio] 18.2 mg/mg [facility] CBC WITH AUTO DIFFERENTIALon 08-12-2020 Basophils (Bld) [#/Vol] 0.03 10*3/uL [facility] Basophils/100 WBC (Bld) 0.3 % [facility] Eosinophils (Bld) [#/Vol] 0.08 10*3/uL [facility] Eosinophils/100 WBC (Bld) 0.8 % [facility] Erythrocyte distribution width (RBC) [Entitic vol] 12.8 % 11.6 - 14.8 % [facility] Hematocrit (Bld) [Volume fraction] 39.0 % Low 41.0 - 53.0 % [facility] Hemoglobin (Bld) [Mass/Vol] 12.7 g/dL Low 13.5 - 17.5 g/dL [facility] Immature granulocytes (Bld) [#/Vol] 0.04 10*3/uL [facility] Immature granulocytes/100 WBC (Bld) 0.40 % [facility] Comment on above: The IG parameter is the percentage of metamyelocytes, myelocytes and promyelocytes. An immature granulocyte count (IG) of 1% or more suggests the possibility of infection, an IG count of 3% is very likely related to an infection. Interpretation and review of laboratory results Abnormal [facility] Lymphocytes (Bld) [#/Vol] 1.08 10*3/uL [facility] Lymphocytes/100 WBC (Bld) 11.0 % [facility] MCH (RBC) [Entitic mass] 31.3 pg 26.0 - 34.0 pg [facility] MCHC (RBC) [Mass/Vol] 32.6 g/dL 31.0 - 37.0 g/dL [facility] MCV (RBC) [Entitic vol] 96.1 fL 80.0 - 100.0 fL [facility] Monocytes (Bld) [#/Vol] 1.38 10*3/uL High [facility] Monocytes/100 WBC (Bld) 14.0 % [facility] Neutrophils (Bld) [#/Vol] 7.22 10*3/uL High [facility] Neutrophils/100 WBC (Bld) 73.5 % [facility] Nucleated RBC (Bld) [#/Vol] 0.00 10*3/uL [facility] Nucleated RBC/100 WBC (Bld) [Ratio] 0.0 % [facility] Platelet mean volume (Bld) [Entitic vol] 9.5 fL 9.4 - 12.4 fL [facility] Platelets (Bld) [#/Vol] 247 10*3/uL [facility] RBC (Bld) [#/Vol] 4.06 10*6/uL Low [facility] ealth WBC (Bld) [#/Vol] 9.83 10*3/uL [facility] eah Sputum Aerobic Cultureon Bacteria identified Aer cx Nom (Sput) Moderate Growth Staphylococcus aureus Abnormal [facility] Comment on above: This Staphylococcus aureus is Methicillin SUSCEPTIBLE by PBP2a testing. Beta-lactams like Cefazolin and Nafcillin are superior to Vancomycin for treating mSsa. Bacteria identified Aer cx Nom (Sput) Heavy Growth Normal Respiratory Kaleigh [facility] Interpretation and review of laboratory results Abnormal [facility] Microscopic observation Gram stain Nom (Sput) Positive [facility] Microscopic observation Gram stain Nom (Sput) Rare Epithelial Cells [facility] Microscopic observation Gram stain Nom (Sput) Many WBC [facility] Ultrasound duplex venous leg righton 08-12-2020 Patient Info Name: WOLF TURCIOS Age: 60 years : 1960 Gender: Male Exam Date: 08/12/2020 9:37 AM Patient Status: Inpatient Staff Referring Physician: ESAU Huffman; Attending Physician: [facility] Indications - RLE edema, eval DVT Procedure Description 67170 Duplex examination using B-mode, color and spectral Doppler of extremity veins including responses to compression and other maneuvers; unilateral or limited study. Conclusions * No evidence of deep or superficial vein thrombosis in the right lower extremity or contralateral common femoral vein. * Incidental Finding: A complex, heterogenous, avascular structure is visualized in the right groin measuring about 1.63 x 1.23 cm. Probable lymph node. Technically difficult to examine due to tissue composition. . Report Signatures Finalized by George So MD, RPVI on 08/12/2020 09:16 PM [facility] Interface, Rad In Heartlab Xper Echopacs - 08/12/2020 9:17 PM EST Patient Info Name: WOLF TURCIOS Age: 60 years : 1960 Gender: Male Exam Date: 08/12/2020 9:37 AM Patient Status: Inpatient Staff Referring Physician: ESAU Huffman; Attending Physician: [facility] Indications - RLE edema, eval DVT Procedure Description 99930 Duplex examination using B-mode, color and spectral Doppler of extremity veins including responses to compression and other maneuvers; unilateral or limited study. Conclusions * No evidence of deep or superficial vein thrombosis in the right lower extremity or contralateral common femoral vein. * Incidental Finding: A complex, heterogenous, avascular structure is visualized in the right groin measuring about 1.63 x 1.23 cm. Probable lymph node. Technically difficult to examine due to tissue composition. . Report Signatures Finalized by George So MD, RPVI on 08/12/2020 09:16 PM [facility] BLOOD GAS, VBG WITH FULL WILLARD Jarod 08-11-2020 Base excess Calc (BldV) [Moles/Vol] 3.8 mmol/L High [facility] Calcium.ionized [Mass/Vol] 4.3 mg/dL Low 4.5 - 5.3 mg/dL [facility] Carboxyhemoglobin (BldA) [Mass fraction] 2.9 High <=1.5 % of total Hb [facility] Comment on above: Reference Ranges: [place] Non-smokers: <1.5% Smokers: 1.5-5.0% Heavy Smokers: 5.0-9.0% CO2 (BldV) [Partial pressure] 40.6 mm[Hg] Low [facility] Glucose [Mass/Vol] 99 mg/dL 65 - 99 mg/dL [facility] HCO3 (Bld) [Moles/Vol] 27.6 mmol/L 24.0 - 28.0 mmol/L [facility] Hematocrit (BldA) [Volume fraction] 37.7 % Low 41.0 - 53.0 % [facility] Hemoglobin (Bld) [Mass/Vol] 12.3 g/dL Low 13.5 - 17.5 g/dL [facility] Interpretation and review of laboratory results Abnormal [facility] Lactate [Moles/Vol] 0.8 mmol/L 0.6 - 2. 0 mmol/L [facility] Methemoglobin (BldA) [Mass fraction] 0.3 % 0.0 - 2.0 % [facility] Oxygen (BldV) [Partial pressure] 101 mm[Hg] High [facility] Oxygen saturation in Venous blood 98.2 % High 40.0 - 70.0 % [facility] Oxyhemoglobin (BldA) [Mass fraction] 95.1 % No established reference range [facility] pH (BldV) 7.45 [pH] High [facility] Potassium [Moles/Vol] 3.5 mmol/L 3.5 - 5.1 mmol/L [facility] Sodium [Moles/Vol] 135 mmol/L 135 - 145 mmol/L [facility] Basic Metabolic Panelon Anion gap [Moles/Vol] 14 mmol/L 10 - 2 0 mmol/L [facility] Calcium [Mass/Vol] 8.1 mg/dL Low 8.4 - 10. 2 mg/dL [facility] Chloride [Moles/Vol] 102 mmol/L 98 - 10 8 mmol/L [facility] Creatinine [Mass/Vol] 0.52 mg/dL 0.50 - 1.30 [facility] GFR/1.73 sq M predicted among non-blacks MDRD (S/P/Bld) [Vol rate/Area] The eGFR should be used for monitoring renal function only and not for medication dosing. [facility] GFR/1.73 sq M.predicted CKD-EPI (S/P/Bld) [Vol rate/Area] 116 >=60 mL/min/1.73 m2 [facility] Glucose [Mass/Vol] 86 mg/dL 65 - 99 mg/dL [facility] HCO3 [Moles/Vol] 25 mmol/L 21 - 32 mmol/L [facility] Interpretation and review of laboratory results Abnormal [facility] Potassium [Moles/Vol] 3.7 mmol/L 3.5 - 5.1 mmol/L [facility] Sodium [Moles/Vol] 137 mmol/L 135 - 145 mmol/L [facility] Urea nitrogen [Mass/Vol] 8 mg/dL 8 - 25 mg/dL [facility] Urea nitrogen/Creatinine [Mass ratio] 15.4 mg/mg [facility] CBC WITH AUTO DIFFERENTIALon 08-11-2020 Basophils (Bld) [#/Vol] 0.03 10*3/uL [facility] Basophils/100 WBC (Bld) 0.3 % [facility] Eosinophils (Bld) [#/Vol] 0.54 10*3/uL High [facility] Eosinophils/100 WBC (Bld) 5.9 % [facility] Erythrocyte distribution width (RBC) [Entitic vol] 13.1 % 11.6 - 14.8 % [facility] Hematocrit (Bld) [Volume fraction] 38.3 % Low 41.0 - 53.0 % [facility] Hemoglobin (Bld) [Mass/Vol] 12.4 g/dL Low 13.5 - 17.5 g/dL [facility] Immature granulocytes (Bld) [#/Vol] 0.03 10*3/uL [facility] Immature granulocytes/100 WBC (Bld) 0.30 % [facility] Comment on above: The IG parameter is the percentage of metamyelocytes, myelocytes and promyelocytes. An immature granulocyte count (IG) of 1% or more suggests the possibility of infection, an IG count of 3% is very likely related to an infection. Interpretation and review of laboratory results Abnormal [facility] Lymphocytes (Bld) [#/Vol] 0.89 10*3/uL Low [facility] Lymphocytes/100 WBC (Bld) 9.8 % [facility] MCH (RBC) [Entitic mass] 31.4 pg 26.0 - 34.0 pg [facility] MCHC (RBC) [Mass/Vol] 32.4 g/dL 31.0 - 37.0 g/dL [facility] MCV (RBC) [Entitic vol] 97.0 fL 80.0 - 100.0 fL [facility] Monocytes (Bld) [#/Vol] 1.14 10*3/uL High [facility] Monocytes/100 WBC (Bld) 12.5 % [facility] Neutrophils (Bld) [#/Vol] 6.46 10*3/uL [facility] Neutrophils/100 WBC (Bld) 71.2 % [facility] Nucleated RBC (Bld) [#/Vol] 0.00 10*3/uL [facility] Nucleated RBC/100 WBC (Bld) [Ratio] 0.0 % [facility] Platelet mean volume (Bld) [Entitic vol] 9.6 fL 9.4 - 12.4 fL [facility] Platelets (Bld) [#/Vol] 185 10*3/uL [facility] RBC (Bld) [#/Vol] 3.95 10*6/uL Low [facility] eah WBC (Bld) [#/Vol] 9.09 10*3/uL [facility] Magn[facility] Levelon 08-11-2020 Interpretation and review of laboratory results Normal [facility] Magnesium [Mass/Vol] 1.8 mg/dL 1.6 - 2 .4 mg/dL [facility] Phosphoruson 08-11-2020 Interpretation and review of laboratory results Abnormal [facility] Phosphate [Mass/Vol] 2.1 mg/dL Low 2.7 - 4 .5 mg/dL [facility] Vancomycin Level, Troughon 0 08-11-2020 Interpretation and review of laboratory results Normal [facility] Vancomycin trough [Mass/Vol] 7.1 ug/mL [facility] XR CHEST AP/PA AND LATon EXAMINATION: TWO XRA Y VIEWS OF THE CHEST 08/11/2020 3:44 pm COMPARISON: Chest radiograph 08/08/2020, chest CTA 07/25/2020 HISTORY: ORDERING SYSTEM PROVIDED HISTORY: MRSA pneumonia, worsening resp failure and tachypnea, eval for pleural effusion, worsening infiltrate; TECHNOLOGIST PROVIDED HISTORY: Illness/Other Acuity: Acute Reason for Exam: MRSA pneumonia, worsening resp failure and tachypnea, eval for pleural effusion, worsening infiltrate Type of Encounter: Initial Additional signs and symptoms: k ORDERING SYSTEM PROVIDED DIAGNOSIS CODES: J18.9 Pneumonia of left lung due to infectious organism, unspecified part of lung A41.9 Sepsis, due to unspecified organism, unspecified whether acute organ dysfunction present ([facility]) J96.00 Acute respiratory failure, unspecified whether with hypoxia or hypercapnia ([facility]) FINDINGS: Unchanged eventration of the posterior right hemidiaphragm. Hyperinflated lungs with attenuation of pulmonary vasculature. Increased bilateral lower lobe airspace opacities, remaining worse on the left. No findings of pneumothorax. Trace bilateral pleural effusions. Normal mediastinal and cardiac contours. [facility] 1. Increased bilater al lower lobe airspace opacities worse on the left likely due to pneumonia or aspiration. Underlying atelectasis and scarring may be present. 2. Trace bilateral pleural effusions. 3. Emphysema better seen on CT. Workstation ID: [id number] [facility] Interface, Rad In Fu ji Speechq - 08/11/2020 4:04 PM EST EXAMINATION: TWO XRAY VIEWS OF THE CHEST 08/11/2020 3:44 pm COMPARISON: Chest radiograph 08/08/2020, chest CTA 07/25/2020 HISTORY: ORDERING SYSTEM PROVIDED HISTORY: MRSA pneumonia, worsening resp failure and tachypnea, eval for pleural effusion, worsening infiltrate; TECHNOLOGIST PROVIDED HISTORY: Illness/Other Acuity: Acute Reason for Exam: MRSA pneumonia, worsening resp failure and tachypnea, eval for pleural effusion, worsening infiltrate Type of Encounter: Initial Additional signs and symptoms: unk ORDERING SYSTEM PROVIDED DIAGNOSIS CODES: J18.9 Pneumonia of left lung due to infectious organism, unspecified part of lung A41.9 Sepsis, due to unspecified organism, unspecified whether acute organ dysfunction present ([facility]) J96.00 Acute respiratory failure, unspecified whether with hypoxia or hypercapnia ([facility]) FINDINGS: Unchanged eventration of the posterior right hemidiaphragm. Hyperinflated lungs with attenuation of pulmonary vasculature. Increased bilateral lower lobe airspace opacities, remaining worse on the left. No findings of pneumothorax. Trace bilateral pleural effusions. Normal mediastinal and cardiac contours. IMPRESSION: 1. Increased bilateral lower lobe airspace opacities worse on the left likely due to pneumonia or aspiration. Underlying atelectasis and scarring may be present. 2. Trace bilateral pleural effusions. 3. Emphysema better seen on CT. Workstation ID: [id number] [facility] Basic Metabolic Panelon Anion gap [Moles/Vol] 12 mmol/L 10 - 2 0 mmol/L [facility] Calcium [Mass/Vol] 7.7 mg/dL Low 8.4 - 10. 2 mg/dL [facility] Chloride [Moles/Vol] 105 mmol/L 98 - 10 8 mmol/L [facility] Creatinine [Mass/Vol] 0.60 mg/dL 0.50 - 1.30 [facility] GFR/1.73 sq M predicted among non-blacks MDRD (S/P/Bld) [Vol rate/Area] The eGFR should be used for monitoring renal function only and not for medication dosing. [facility] GFR/1.73 sq M.predicted CKD-EPI (S/P/Bld) [Vol rate/Area] 109 >=60 mL/min/1.73 m2 [facility] Glucose [Mass/Vol] 130 mg/dL High 65 - 99 mg/dL [facility] [Moles/Vol] 24 mmol/L 21 - 32 mmol/L [facility] Interpretation and review of laboratory results Abnormal [facility] Potassium [Moles/Vol] 3.9 mmol/L 3.5 - 5.1 mmol/L [facility] Sodium [Moles/Vol] 137 mmol/L 135 - 145 mmol/L [facility] Urea nitrogen [Mass/Vol] 9 mg/dL 8 - 25 mg/dL [facility] Urea nitrogen/Creatinine [Mass ratio] 15.0 mg/mg [facility] CBC WITH AUTO DIFFERENTIALon 08-10-2020 Basophils (Bld) [#/Vol] 0.03 10*3/uL [facility] Basophils/100 WBC (Bld) 0.3 % [facility] Eosinophils (Bld) [#/Vol] 0.47 10*3/uL [facility] Eosinophils/100 WBC (Bld) 5.0 % [facility] Erythrocyte distribution width (RBC) [Entitic vol] 13.2 % 11.6 - 14.8 % [facility] Hematocrit (Bld) [Volume fraction] 38.1 % Low 41.0 - 53.0 % [facility] Hemoglobin (Bld) [Mass/Vol] 11.9 g/dL Low 13.5 - 17.5 g/dL [facility] Immature granulocytes (Bld) [#/Vol] 0.05 10*3/uL [facility] Immature granulocytes/100 WBC (Bld) 0.50 % [facility] Comment on above: The IG parameter is the percentage of metamyelocytes, myelocytes and promyelocytes. An immature granulocyte count (IG) of 1% or more suggests the possibility of infection, an IG count of 3% is very likely related to an infection. Interpretation and review of laboratory results Abnormal [facility] Lymphocytes (Bld) [#/Vol] 0.78 10*3/uL Low [facility] Lymphocytes/100 WBC (Bld) 8.3 % [facility] MCH (RBC) [Entitic mass] 31.2 pg 26.0 - 34.0 pg [facility] MCHC (RBC) [Mass/Vol] 31.2 g/dL 31.0 - 37.0 g/dL [facility] MCV (RBC) [Entitic vol] 99.7 fL 80.0 - 100.0 fL [facility] Monocytes (Bld) [#/Vol] 0.96 10*3/uL High [facility] Monocytes/100 WBC (Bld) 10.2 % [facility] Neutrophils (Bld) [#/Vol] 7.08 10*3/uL High [facility] Neutrophils/100 WBC (Bld) 75.7 % [facility] Nucleated RBC (Bld) [#/Vol] 0.00 10*3/uL [facility] Nucleated RBC/100 WBC (Bld) [Ratio] 0.0 % [facility] Platelet mean volume (Bld) [Entitic vol] 9.4 fL 9.4 - 12.4 fL [facility] Platelets (Bld) [#/Vol] 161 10*3/uL [facility] RBC (Bld) [#/Vol] 3.82 10*6/uL Low [facility] ealth WBC (Bld) [#/Vol] 9.37 10*3/uL [facility] ealth ECG 12-LEADon 08-10-2020 Atrial Rate 126 BPM [facility] P [place] 73 degrees [facility] P-R Interval 144 ms [facility] Q-T Interval 296 ms [facility] QRS Duration 88 ms [facility] QTC Calculation (Bezet) 428 ms [facility] R [place] 71 degrees [facility] T [place] 78 degrees [facility] Ventricular Rate 126 BPM [facility] th Sinus tachycardia Otherwise normal ECG When compared with ECG of 08-AUG-2020 22:49, No significant change was found Confirmed by Flores Duong ([id number]) on 08/10/2020 7:29:53 PM [facility] Atrial Rate 113 BPM [facility] P [place] 52 degrees [facility] P-R Interval 152 ms [facility] Q-T Interval 308 ms [facility] QRS Duration 96 ms [facility] QTC Calculation (Bezet) 422 ms [facility] R [place] 59 degrees [facility] T [place] 67 degrees [facility] Ventricular Rate 113 BPM [facility] th Sinus tachycardia Otherwise normal ECG When compared with ECG of 09-AUG-2020 16:30, (unconfirmed) No significant change was found Confirmed by Flores Duong ([id number]) on 08/10/2020 7:27:15 PM [facility] MRSA DNA Amplified Probeon 0 08-10-2020 Interpretation and review of laboratory results Abnormal [facility] MRSA DNA MOMO+probe Ql (Unsp spec) Positive Abnormal MRSA NEGATIVE [facility] TROPONINon 08-10-2020 Troponin T.cardiac [Mass/Vol] No biomarker evidence of cardiac injury. [facility] Troponin T.cardiac [Mass/Vol] 0 ng/L < = -/+ 7 change [facility] Troponin T.cardiac [Mass/Vol] 8 ng/L <=22 [facility] Troponin T.cardiac [Mass/Vol] 8 ng/L <=22 [facility] Troponin T.cardiac [Mass/Vol] Normal [facility] B12/Folateon 08-09-2020 Cobalamin (Vitamin B12) [Mass/Vol] 233 pg/mL 232 - 1245 pg/mL [facility] Folate [Mass/Vol] 9.7 ng/mL 3.1 - 17.5 ng/mL [facility] Comment on above: Deficient <2.2 Borderline 2.2 - 3.0 Excessive >17.5 BLOOD GAS, VBG WITH FULL WILLARD Jarod 08-09-2020 Base excess Calc (BldV) [Moles/Vol] 1.8 mmol/L [facility] Calcium.ionized [Mass/Vol] 4.3 mg/dL Low 4.5 - 5.3 mg/dL [facility] Carboxyhemoglobin (BldA) [Mass fraction] 2.5 High <=1.5 % of total Hb [facility] Comment on above: Reference Ranges: [facility] Non-smokers: <1.5% Smokers: 1.5-5.0% Heavy Smokers: 5.0-9.0% CO2 (BldV) [Partial pressure] 46.5 mm[Hg] [facility] Glucose [Mass/Vol] 108 mg/dL High 65 - 99 mg/dL [facility] HCO3 (Bld) [Moles/Vol] 26.9 mmol/L 24.0 - 28.0 mmol/L [facility] Hematocrit (BldA) [Volume fraction] 42.5 % 41.0 - 53.0 % [facility] Hemoglobin (Bld) [Mass/Vol] 13.8 g/dL 13.5 - 17.5 g/dL [facility] Interpretation and review of laboratory results Abnormal [facility] Lactate [Moles/Vol] 1.0 mmol/L 0.6 - 2. 0 mmol/L [facility] Methemoglobin (BldA) [Mass fraction] 0.4 % 0.0 - 2.0 % [facility] Oxygen (BldV) [Partial pressure] 58 mm[Hg] High [facility] Oxygen saturation in Venous blood 88.9 % High 40.0 - 70.0 % [facility] Oxyhemoglobin (BldA) [Mass fraction] 86.3 % No established reference range [facility] pH (BldV) 7.38 [pH] [facility] Potassium [Moles/Vol] 3.9 mmol/L 3.5 - 5.1 mmol/L [facility] Sodium [Moles/Vol] 135 mmol/L 135 - 145 mmol/L [facility] CBC WITH AUTO DIFFERENTIALon 08-09-2020 Basophils (Bld) [#/Vol] 0.04 10*3/uL [facility] Basophils/100 WBC (Bld) 0.2 % [facility] Eosinophils (Bld) [#/Vol] 0.19 10*3/uL [facility] Eosinophils/100 WBC (Bld) 1.1 % [facility] Erythrocyte distribution width (RBC) [Entitic vol] 13.5 % 11.6 - 14.8 % [facility] Hematocrit (Bld) [Volume fraction] 43.9 % 41.0 - 53.0 % [facility] Hemoglobin (Bld) [Mass/Vol] 13.9 g/dL 13.5 - 17.5 g/dL [facility] Immature granulocytes (Bld) [#/Vol] 0.14 10*3/uL [facility] Immature granulocytes/100 WBC (Bld) 0.80 % [facility] Comment on above: The IG parameter is the percentage of metamyelocytes, myelocytes and promyelocytes. An immature granulocyte count (IG) of 1% or more suggests the possibility of infection, an IG count of 3% is very likely related to an infection. Interpretation and review of laboratory results Abnormal [facility] Lymphocytes (Bld) [#/Vol] 0.98 10*3/uL [facility] Lymphocytes/100 WBC (Bld) 5.8 % [facility] MCH (RBC) [Entitic mass] 31.2 pg 26.0 - 34.0 pg [facility] MCHC (RBC) [Mass/Vol] 31.7 g/dL 31.0 - 37.0 g/dL [facility] MCV (RBC) [Entitic vol] 98.4 fL 80.0 - 100.0 fL [facility] Monocytes (Bld) [#/Vol] 1.64 10*3/uL High [facility] Monocytes/100 WBC (Bld) 9.7 % [facility] Neutrophils (Bld) [#/Vol] 13.85 10*3/uL High [facility] Neutrophils/100 WBC (Bld) 82.4 % [facility] Nucleated RBC (Bld) [#/Vol] 0.00 10*3/uL [facility] Nucleated RBC/100 WBC (Bld) [Ratio] 0.0 % [facility] Platelet mean volume (Bld) [Entitic vol] 10.0 fL 9.4 - 12.4 fL [facility] Platelets (Bld) [#/Vol] 162 10*3/uL [facility] RBC (Bld) [#/Vol] 4.46 10*6/uL Low [facility] ealth WBC (Bld) [#/Vol] 16.84 10*3/uL High [facility] Comprehensive Metabolic Pane samuel 08-09-2020 Albumin [Mass/Vol] 3.3 g/dL 3.2 - 5.2 g/dL [facility] ALP [Catalytic activity/Vol] 127 U/L 40 - 150 U/L [facility] ALT [Catalytic activity/Vol] 26 U/L 0 - 40 U/L [facility] Anion gap [Moles/Vol] 16 mmol/L 10 - 2 0 mmol/L [facility] AST [Catalytic activity/Vol] 22 U/L 0 - 45 U/L [facility] Bilirubin [Mass/Vol] 0.7 mg/dL 0.0 - 1 .3 mg/dL [facility] Calcium [Mass/Vol] 8.1 mg/dL Low 8.4 - 10. 2 mg/dL [facility] Chloride [Moles/Vol] 97 mmol/L Low 98 - 10 8 mmol/L [facility] Creatinine [Mass/Vol] 0.76 mg/dL 0.50 - 1.30 [facility] GFR/1.73 sq M predicted among non-blacks MDRD (S/P/Bld) [Vol rate/Area] The eGFR should be used for monitoring renal function only and not for medication dosing. [facility] GFR/1.73 sq M.predicted CKD-EPI (S/P/Bld) [Vol rate/Area] 99 >=60 mL/min/1.73 m2 [facility] Glucose [Mass/Vol] 84 mg/dL 65 - 99 mg/dL [facility] HCO3 [Moles/Vol] 26 mmol/L 21 - 32 mmol/L [facility] Potassium [Moles/Vol] 3.9 mmol/L 3.5 - 5.1 mmol/L [facility] Protein [Mass/Vol] 5.7 g/dL Low 6.0 - 8.0 g/dL [facility] Sodium [Moles/Vol] 135 mmol/L 135 - 145 mmol/L [facility] Urea nitrogen [Mass/Vol] 14 mg/dL 8 - 25 mg/dL [facility] Urea nitrogen/Creatinine [Mass ratio] 18.4 mg/mg [facility] DRUGS OF ABUSE SCREEN, URINE on 08-09-2020 Amphetamines Ql (U) None Detected None Detected [facility] Comment on above: Urine Amphetamine Cu toff: < 1000 ng/mL = None Detected Barbiturates Screen Ql (U) None Detected None Detected [facility] Comment on above: Urine Barbiturates C utoff: < 200 ng/mL = None Detected Benzodiazepines Ql (U) None Detected None Detected [facility] Comment on above: Urine Benzodiazepine Cutoff: < 200 ng/mL = None Detected Buprenorphine Ql (U) Positive Abnormal None Detected [facility] Comment on above: Urine Buprenorphine Cutoff: < 5 ng/mL = None Detected Cannabinoids Screen Ql (U) None Detected None Detected [facility] Comment on above: Urine Cannabinoids C utoff: < 50 ng/mL = None Detected Cocaine Ql (U) None Detected None Detected [facility] Comment on above: Urine Cocaine Cutoff : < 300 ng/mL = None Detected Fentanyl+Norfentanyl Screen Ql (U) None Detected None Detected [facility] Comment on above: Urine Fentanyl Cutof f: < 1 ng/mL = None Detected Interpretation and review of laboratory results Abnormal [facility] Methadone Screen Ql (U) None Detected None Detected [facility] Comment on above: Urine Methadone Cuto ff: < 300 ng/mL = None Detected Opiates Screen Ql (U) None Detected None Detect ed [facility] Comment on above: Urine Opiates Cutoff : < 300 ng/mL = None Detected Oxycodone Ql (U) None Detected None Detected [facility] Comment on above: Urine Oxycodone Cuto ff: < 100 ng/mL = None Detected Screen results shoul d be used for treatment purposes only. Specimen will be kept for 2 weeks, if the sample is adequate. Confirmation testing can be initiated by calling the lab within 2 weeks. [facility] ECG 12-LEADon 08-09-2020 Atrial Rate 126 BPM [facility] P [place] 79 degrees [facility] P-R Interval 142 ms [facility] Q-T Interval 288 ms [facility] QRS Duration 86 ms [facility] QTC Calculation (Bezet) 417 ms [facility] R [place] 74 degrees [facility] T [place] 80 degrees [facility] Ventricular Rate 126 BPM [facility] th Sinus tachycardia Otherwise normal ECG When compared with ECG of 26-JUL-2020 13:49, No significant change was found Confirmed by Physician, ED ([id number]), photo editor CARMEN FLEMING ([id number]) on 08/09/2020 8:28:09 AM [facility] EKGon 08-09-2020 Ordered by an unspec ified provider. [facility] Hemoglobin A1con 08-09-2020 Average glucose Estimated from glycated hemoglobin mass conc (Bld) 108 mg/dL 74 - 114 mg/dL [facility] HbA1c (Bld) [Mass fraction] 5.4 % 4.2 - 5.6 % [facility] Interpretation and review of laboratory results Normal [facility] LEGIONELLA ANTIGEN, URINEon 08-09-2020 L. pneumophila Ag Ql (U) Negative Negative for Legionella antigen [facility] Comment on above: COMMENT: Results may be affected if patient is on diuretics. INTERPRETATION OF RESULTS: Test detects Legionella pneumophilia serogroup 1 antigens in urine. Legionnaires disease cannot be ruled out since other serogroups and species may also cause disease. MRSA DNA Amplified Probeon 0 08-09-2020 Interpretation and review of laboratory results Abnormal [facility] MRSA DNA MOMO+probe Ql (Unsp spec) Positive Abnormal MRSA NEGATIVE [facility] Magnesiumon 08-09-2020 Interpretation and review of laboratory results Normal [facility] Magnesium [Mass/Vol] 2.1 mg/dL 1.6 - 2 .4 mg/dL [facility] Otheron 08-09-2020 Interpretation and review of laboratory results Normal [facility] Interpretation and review of laboratory results Abnormal [facility] Interpretation and review of laboratory results Normal [facility] PT/INRon 08-09-2020 INR Coag (PPP) [Relative time] 1.1 {INR} [facility] Interpretation and review of laboratory results Normal [facility] PT Coag (PPP) [Time] 14.1 s [facility] During the induction phase of oral anticoagulation, the INR may not reflect the anticoagulation status of the patient. Therapeutic ranges for INR's are: Most clinical situations: INR 2.0-3.0 Mechanical Prosthetic Valve: INR 2.5-3.5 Critical: INR >5.0 [facility] Phosphoruson 08-09-2020 Phosphate [Mass/Vol] 2.4 mg/dL Low 2.7 - 4 .5 mg/dL [facility] S.PNEUMONIAE URINE ANTIGENon 08-09-2020 S. pneumoniae Ag Ql (U) Negative Presumptive Negative for Pneumococcal pneumoniae [facility] Comment on above: A negative result rice ggests no current or recent pneumococcal infection. A negative result does not rule out Streptococcus pneumoniae infection since the antigen present in the sample may be below the detection limit of the test. TSH with Reflex Free T4on TSH Qn 1.76 m[IU]/L [facility] URINALYSISon 08-09-2020 Bacteria Auto Ql (U) Rare Abnormal None Se en /hpf [facility] Bilirubin Ql (U) Negative Negative [facility] Cl[facility] Refractometry automated (U) Cloudy Abnormal Clear [facility] Color (U) Yenni Abnormal Colorless, Yellow [facility] Epithelial cells.squamous Auto (Urine sed) [#/Area] <1 [facility] Glucose Auto test strip (U) [Mass/Vol] Negative Negative mg/dL [facility] Hemoglobin Auto test strip Ql (U) Large Abnormal Negative [facility] Hyaline casts Auto (Urine sed) [#/Area] 0-2 0 - 2 /lpf [facility] Interpretation and review of laboratory results Abnormal [facility] Ketones (U) [Mass/Vol] Negative Negative mg/dL [facility] Leukocyte esterase Auto test strip Ql (U) Negative Negative [facility] Mucus Auto (Urine sed) [#/Area] Many Abnormal None Seen, Rare /lpf [facility] Nitrite Auto test strip Ql (U) Negative Negative [facility] pH (U) 6.0 [pH] [facility] Protein (U) [Mass/Vol] 100 Abnormal Negative mg/dL [facility] RBC Auto (Urine sed) [#/Area] 137 High [facility] RBC casts Computer assisted (U) [#/Area] 1 High [facility] Specific gravity (U) [Rel density] 1.037 High [facility] Urobilinogen (U) [Mass/Vol] >=4.0 Abnormal <2.0 mg/dL [facility] WBC Auto (Urine sed) [#/Area] 11 High [facility] Yeast.budding Computer assisted (U) [#/Area] Few Abnormal None Seen /hpf [facility] Microscopic examinat ion is performed on all urinalysis samples and only positive findings are reported. The test for blood on the chemical analytic portion of urinalysis may also be positive due to hemoglobinuria and myoglobinuria and if red blood cells are present they are quantified by microscopic examination. [facility] XR Chest 1 Viewon 08-09-2020 Interface, Rad In Juliocesar souza Speechq - 08/09/2020 12:24 AM EST EXAMINATION: ONE XRAY VIEW OF THE CHEST 08/08/2020 11:38 pm COMPARISON: 07/25/2020 HISTORY: ORDERING SYSTEM PROVIDED HISTORY: chest pain, sob; TECHNOLOGIST PROVIDED HISTORY: Illness/Other Acuity: Unknown Reason for Exam: chest pain, sob Type of Encounter: Unknown Additional signs and symptoms: unk FINDINGS: Increased left perihilar interstitial prominence and left lung base airspace opacities. No effusion or pneumothorax. The right lung is clear. Unchanged asymmetric elevation of the right hemidiaphragm. The cardiac silhouette and osseous structures are stable. IMPRESSION: Left perihilar and lung base interstitial prominence is favored to reflect infection. Asymmetric pulmonary edema can also have this appearance. Workstation ID: [id number] [facility] EXAMINATION: ONE XRA Y VIEW OF THE CHEST 08/08/2020 11:38 pm COMPARISON: 07/25/2020 HISTORY: ORDERING SYSTEM PROVIDED HISTORY: chest pain, sob; TECHNOLOGIST PROVIDED HISTORY: Illness/Other Acuity: Unknown Reason for Exam: chest pain, sob Type of Encounter: Unknown Additional signs and symptoms: unk FINDINGS: Increased left perihilar interstitial prominence and left lung base airspace opacities. No effusion or pneumothorax. The right lung is clear. Unchanged asymmetric elevation of the right hemidiaphragm. The cardiac silhouette and osseous structures are stable. [facility] Left perihilar and l carlos base interstitial prominence is favored to reflect infection. Asymmetric pulmonary edema can also have this appearance. Workstation ID: [id number] [facility] CBC WITH AUTO DIFFERENTIALon 08-08-2020 Basophils (Bld) [#/Vol] 0.04 10*3/uL [facility] Basophils/100 WBC (Bld) 0.2 % [facility] Eosinophils (Bld) [#/Vol] 0.11 10*3/uL [facility] Eosinophils/100 WBC (Bld) 0.7 % [facility] Erythrocyte distribution width (RBC) [Entitic vol] 13.2 % 11.6 - 14.8 % [facility] Hematocrit (Bld) [Volume fraction] 45.9 % 41.0 - 53.0 % [facility] Hemoglobin (Bld) [Mass/Vol] 15.2 g/dL 13.5 - 17.5 g/dL [facility] Immature granulocytes (Bld) [#/Vol] 0.10 10*3/uL [facility] Immature granulocytes/100 WBC (Bld) 0.60 % [facility] Comment on above: The IG parameter is the percentage of metamyelocytes, myelocytes and promyelocytes. An immature granulocyte count (IG) of 1% or more suggests the possibility of infection, an IG count of 3% is very likely related to an infection. Interpretation and review of laboratory results Abnormal [facility] Lymphocytes (Bld) [#/Vol] 0.82 10*3/uL Low [facility] Lymphocytes/100 WBC (Bld) 5.0 % [facility] MCH (RBC) [Entitic mass] 31.4 pg 26.0 - 34.0 pg [facility] MCHC (RBC) [Mass/Vol] 33.1 g/dL 31.0 - 37.0 g/dL [facility] MCV (RBC) [Entitic vol] 94.8 fL 80.0 - 100.0 fL [facility] Monocytes (Bld) [#/Vol] 1.23 10*3/uL High [facility] Monocytes/100 WBC (Bld) 7.5 % [facility] Neutrophils (Bld) [#/Vol] 14.10 10*3/uL High [facility] Neutrophils/100 WBC (Bld) 86.0 % [facility] Nucleated RBC (Bld) [#/Vol] 0.00 10*3/uL [facility] Nucleated RBC/100 WBC (Bld) [Ratio] 0.0 % [facility] Platelet mean volume (Bld) [Entitic vol] 9.5 fL 9.4 - 12.4 fL [facility] Platelets (Bld) [#/Vol] 185 10*3/uL [facility] RBC (Bld) [#/Vol] 4.84 10*6/uL [facility] ealth WBC (Bld) [#/Vol] 16.40 10*3/uL [facility] COVID-19/Influenza A,B Molec ularon 08-08-2020 Influenza A Not Detected Not Detected [facility] Influenza B Not Detected Not Detected [facility] Interpretation and review of laboratory results Normal [facility] SARS-CoV-2 Not Detected Not Detected [facility] This test was perfor med under the FDA's Emergency Use Authorization (EUA). Testing was performed using the Dimitris Panda SARS-CoV-2 RT-PCR & Influenza A/B Nucleic Acid Test on the Panda Ndaja System. This test has not been approved for use in asymptomatic patients and its performance in this patient population has not been evaluated. Negative results do not rule out the presence of SARS-CoV-2, influenza A, and/or influenza B. Fact sheets for the EUA can be found at the following links: For Healthcare Providers: https://www.fda.gov/media /765913/download For Patients: https://www.fda.gov/media /605489/download [facility] Chem 7on 08-08-2020 Anion gap [Moles/Vol] 18 mmol/L 10 - 2 0 mmol/L [facility] Chloride [Moles/Vol] 95 mmol/L Low 98 - 10 8 mmol/L [facility] Creatinine [Mass/Vol] 0.81 mg/dL 0.50 - 1.30 [facility] GFR/1.73 sq M predicted among non-blacks MDRD (S/P/Bld) [Vol rate/Area] The eGFR should be used for monitoring renal function only and not for medication dosing. [facility] GFR/1.73 sq M.predicted CKD-EPI (S/P/Bld) [Vol rate/Area] 97 >=60 mL/min/1.73 m2 [facility] Glucose [Mass/Vol] 131 mg/dL High 65 - 99 mg/dL [facility] HCO3 [Moles/Vol] 25 mmol/L 21 - 32 mmol/L [facility] Interpretation and review of laboratory results Abnormal [facility] Potassium [Moles/Vol] 4.2 mmol/L 3.5 - 5.1 mmol/L [facility] Sodium [Moles/Vol] 134 mmol/L Low 135 - 145 mmol/L [facility] Urea nitrogen [Mass/Vol] 13 mg/dL 8 - 25 mg/dL [facility] Urea nitrogen/Creatinine [Mass ratio] 16.0 mg/mg [facility] Lactic Acid, Plasmaon 2020 Interpretation and review of laboratory results Normal [facility] Lactate [Moles/Vol] 1.4 mmol/L 0.6 - 2. 0 mmol/L [facility] NT Pro BNPon 08-08-2020 Interpretation and review of laboratory results Normal [facility] Natriuretic peptide.B prohormone N-Terminal [Mass/Vol] 56 pg/mL 0 - 300 pg/mL [facility] Pride Study Cut-offs Rule In: < /= 50 Years >450 pg/mL 51 Years - 75 Years >900 pg/mL 76 Years - 99 Years >1800 pg/mL Rule Out: All patients <300 pg/mL [facility] Otheron 08-08-2020 Extra Tube Hold for add-ons. [facility] Comment on above: Auto resulted. TROPONINon 08-08-2020 Troponin T.cardiac [Mass/Vol] Normal [facility] Troponin T.cardiac [Mass/Vol] 13 ng/L <=22 [facility] BMPon 07-26-2020 Anion gap [Moles/Vol] 17 mmol/L 10 - 2 0 mmol/L [facility] Calcium [Mass/Vol] 8.9 mg/dL 8.4 - 10. 2 mg/dL [facility] Chloride [Moles/Vol] 97 mmol/L Low 98 - 10 8 mmol/L [facility] Creatinine [Mass/Vol] 0.91 mg/dL 0.50 - 1.30 [facility] GFR/1.73 sq M predicted among non-blacks MDRD (S/P/Bld) [Vol rate/Area] The eGFR should be used for monitoring renal function only and not for medication dosing. [facility] GFR/1.73 sq M.predicted CKD-EPI (S/P/Bld) [Vol rate/Area] 91 >=60 mL/min/1.73 m2 [facility] Glucose [Mass/Vol] 156 mg/dL High 65 - 99 mg/dL [facility] HCO3 [Moles/Vol] 29 mmol/L 21 - 32 mmol/L [facility] Interpretation and review of laboratory results Abnormal [facility] Potassium [Moles/Vol] 4.3 mmol/L 3.5 - 5.1 mmol/L [facility] Sodium [Moles/Vol] 139 mmol/L 135 - 145 mmol/L [facility] Urea nitrogen [Mass/Vol] 19 mg/dL 8 - 25 mg/dL [facility] Urea nitrogen/Creatinine [Mass ratio] 20.9 mg/mg High [facility] CBC WITH AUTO DIFFERENTIALon 07-26-2020 Basophils (Bld) [#/Vol] 0.05 10*3/uL [facility] Basophils/100 WBC (Bld) 0.5 % [facility] Eosinophils (Bld) [#/Vol] 0.11 10*3/uL [facility] Eosinophils/100 WBC (Bld) 1.0 % [facility] Erythrocyte distribution width (RBC) [Entitic vol] 13.7 % 11.6 - 14.8 % [facility] Hematocrit (Bld) [Volume fraction] 44.6 % 41.0 - 53.0 % [facility] Hemoglobin (Bld) [Mass/Vol] 14.4 g/dL 13.5 - 17.5 g/dL [facility] Immature granulocytes (Bld) [#/Vol] 0.35 10*3/uL High [facility] Immature granulocytes/100 WBC (Bld) 3.20 % [facility] Comment on above: The IG parameter is the percentage of metamyelocytes, myelocytes and promyelocytes. An immature granulocyte count (IG) of 1% or more suggests the possibility of infection, an IG count of 3% is very likely related to an infection. Interpretation and review of laboratory results Abnormal [facility] Lymphocytes (Bld) [#/Vol] 0.94 10*3/uL [facility] Lymphocytes/100 WBC (Bld) 8.5 % [facility] MCH (RBC) [Entitic mass] 31.4 pg 26.0 - 34.0 pg [facility] MCHC (RBC) [Mass/Vol] 32.3 g/dL 31.0 - 37.0 g/dL [facility] MCV (RBC) [Entitic vol] 97.4 fL 80.0 - 100.0 fL [facility] Monocytes (Bld) [#/Vol] 0.50 10*3/uL [facility] Monocytes/100 WBC (Bld) 4.5 % [facility] Neutrophils (Bld) [#/Vol] 9.14 10*3/uL [facility] Neutrophils/100 WBC (Bld) 82.3 % [facility] Nucleated RBC (Bld) [#/Vol] 0.00 10*3/uL [facility] Nucleated RBC/100 WBC (Bld) [Ratio] 0.0 % [facility] Platelet mean volume (Bld) [Entitic vol] 9.2 fL Low 9.4 - 12.4 fL [facility] Platelets (Bld) [#/Vol] 307 10*3/uL [facility] RBC (Bld) [#/Vol] 4.58 10*6/uL [facility] ealth WBC (Bld) [#/Vol] 11.09 10*3/uL [facility] CT HEAD OR BRAIN WITHOUT CON TRASTon 07-26-2020 EXAMINATION: CT OF T HE HEAD WITHOUT CONTRAST 07/26/2020 TECHNIQUE: CT of the head was performed without the administration of intravenous contrast. Dose modulation, iterative reconstruction, and/or weight based adjustment of the mA/kV was utilized to reduce the radiation dose to as low as reasonably achievable. COMPARISON: None. HISTORY: ORDERING SYSTEM PROVIDED HISTORY: syncope; TECHNOLOGIST PROVIDED HISTORY: Injury/Trauma Acuity: Acute Reason for Exam: FALL Type of Encounter: Initial Mechanism of Injury: SYNOPE FINDINGS: BRAIN/VENTRICLES: There is no acute intracranial hemorrhage, mass effect or midline shift. No abnormal extra-axial fluid collection. The lee-white differentiation is maintained without evidence of an acute infarct. Bilateral basal ganglia calcification no hydrocephalus. Mild hypoattenuation within the periventricular and subcortical white matter, which likely represents chronic microvascular ischemic change. ORBITS: The visualized portion of the orbits demonstrate no acute abnormality. SINUSES: The visualized paranasal sinuses and mastoid air cells appear clear apart from minimal mucosal thickening posterior left sphenoid sinus. SOFT TISSUES/SKULL: No acute abnormality of the visualized skull or soft tissues. [facility] Fu ji Speechq - 07/26/2020 2:32 PM EST EXAMINATION: CT OF THE HEAD WITHOUT CONTRAST 07/26/2020 TECHNIQUE: CT of the head was performed without the administration of intravenous contrast. Dose modulation, iterative reconstruction, and/or weight based adjustment of the mA/kV was utilized to reduce the radiation dose to as low as reasonably achievable. COMPARISON: None. HISTORY: ORDERING SYSTEM PROVIDED HISTORY: syncope; TECHNOLOGIST PROVIDED HISTORY: Injury/Trauma Acuity: Acute Reason for Exam: FALL Type of Encounter: Initial Mechanism of Injury: SYNOPE FINDINGS: BRAIN/VENTRICLES: There is no acute intracranial hemorrhage, mass effect or midline shift. No abnormal extra-axial fluid collection. The lee-white differentiation is maintained without evidence of an acute infarct. Bilateral basal ganglia calcification no hydrocephalus. Mild hypoattenuation within the periventricular and subcortical white matter, which likely represents chronic microvascular ischemic change. ORBITS: The visualized portion of the orbits demonstrate no acute abnormality. SINUSES: The visualized paranasal sinuses and mastoid air cells appear clear apart from minimal mucosal thickening posterior left sphenoid sinus. SOFT TISSUES/SKULL: No acute abnormality of the visualized skull or soft tissues. IMPRESSION: No acute intracranial abnormality. Workstation ID: [id number] [facility] No acute intracrania l abnormality. Workstation ID: [id number] [facility] ECG 12-LEADon 07-26-2020 Atrial Rate 95 BPM [facility] P [place] 77 degrees [facility] P-R Interval 128 ms [facility] Q-T Interval 334 ms [facility] QRS Duration 94 ms [facility] QTC Calculation (Bezet) 419 ms [facility] R [place] 68 degrees [facility] T [place] 73 degrees [facility] Ventricular Rate 95 BPM [facility] Normal sinus rhythm Normal ECG When compared with ECG of 25-JUL-2020 07:54, No significant change was found Confirmed by Physician, ED ([id number]), photo editor BILL SANTACRUZ ([id number]) on 07/26/2020 2:28:29 PM [facility] Otheron 07-26-2020 Extra Tube Hold for add-ons. [facility] Comment on above: Auto resulted. TROPONINon 07-26-2020 Troponin T.cardiac [Mass/Vol] Normal [facility] Troponin T.cardiac [Mass/Vol] 11 ng/L <=22 [facility] BLOOD GAS, VBG WITH FULL WILLARD Jarod 07-25-2020 Base excess Calc (BldV) [Moles/Vol] 2.8 mmol/L High [facility] Calcium.ionized [Mass/Vol] 4.5 mg/dL 4.5 - 5.3 mg/dL [facility] Carboxyhemoglobin (BldA) [Mass fraction] 2.2 High <=1.5 % of total Hb [facility] Comment on above: Reference Ranges: Suburban Non-smokers: <1.5% Smokers: 1.5-5.0% Heavy Smokers: 5.0-9.0% CO2 (BldV) [Partial pressure] 39.3 mm[Hg] Low [facility] Glucose [Mass/Vol] 190 mg/dL High 65 - 99 mg/dL [facility] HCO3 (Bld) [Moles/Vol] 26.5 mmol/L 24.0 - 28.0 mmol/L [facility] Hematocrit (BldA) [Volume fraction] 41.5 % 41.0 - 53.0 % [facility] Hemoglobin (Bld) [Mass/Vol] 13.5 g/dL 13.5 - 17.5 g/dL [facility] Interpretation and review of laboratory results Abnormal [facility] Lactate [Moles/Vol] 3.5 mmol/L High 0.6 - 2. 0 mmol/L [facility] Methemoglobin (BldA) [Mass fraction] 0.4 % 0.0 - 2.0 % [facility] Oxygen (BldV) [Partial pressure] 82 mm[Hg] High [facility] Oxygen saturation in Venous blood 96.5 % High 40.0 - 70.0 % [facility] Oxyhemoglobin (BldA) [Mass fraction] 94.0 % No established reference range [facility] pH (BldV) 7.44 [pH] High [facility] Potassium [Moles/Vol] 4.1 mmol/L 3.5 - 5.1 mmol/L [facility] Sodium [Moles/Vol] 139 mmol/L 135 - 145 mmol/L [facility] BMPon 07-25-2020 Anion gap [Moles/Vol] 16 mmol/L 10 - 2 0 mmol/L [facility] Calcium [Mass/Vol] 8.6 mg/dL 8.4 - 10. 2 mg/dL [facility] Chloride [Moles/Vol] 101 mmol/L 98 - 10 8 mmol/L [facility] Creatinine [Mass/Vol] 0.81 mg/dL 0.50 - 1.30 Oh [facility] GFR/1.73 sq M predicted among non-blacks MDRD (S/P/Bld) [Vol rate/Area] The eGFR should be used for monitoring renal function only and not for medication dosing. [facility] GFR/1.73 sq M.predicted CKD-EPI (S/P/Bld) [Vol rate/Area] 97 >=60 mL/min/1.73 m2 [facility] Glucose [Mass/Vol] 230 mg/dL High 65 - 99 mg/dL [facility] HCO3 [Moles/Vol] 26 mmol/L 21 - 32 mmol/L [facility] Interpretation and review of laboratory results Abnormal [facility] Potassium [Moles/Vol] 4.3 mmol/L 3.5 - 5.1 mmol/L [facility] Sodium [Moles/Vol] 139 mmol/L 135 - 145 mmol/L [facility] Urea nitrogen [Mass/Vol] 16 mg/dL 8 - 25 mg/dL [facility] Urea nitrogen/Creatinine [Mass ratio] 19.8 mg/mg [facility] CBC WITH AUTO DIFFERENTIALon 07-25-2020 Basophils (Bld) [#/Vol] 0.02 10*3/uL [facility] Basophils/100 WBC (Bld) 0.2 % [facility] Eosinophils (Bld) [#/Vol] 0.04 10*3/uL [facility] Eosinophils/100 WBC (Bld) 0.4 % [facility] Erythrocyte distribution width (RBC) [Entitic vol] 13.6 % 11.6 - 14.8 % [facility] Hematocrit (Bld) [Volume fraction] 41.8 % 41.0 - 53.0 % [facility] Hemoglobin (Bld) [Mass/Vol] 13.2 g/dL Low 13.5 - 17.5 g/dL [facility] Immature granulocytes (Bld) [#/Vol] 0.13 10*3/uL [facility] Immature granulocytes/100 WBC (Bld) 1.40 % [facility] Comment on above: The IG parameter is the percentage of metamyelocytes, myelocytes and promyelocytes. An immature granulocyte count (IG) of 1% or more suggests the possibility of infection, an IG count of 3% is very likely related to an infection. Interpretation and review of laboratory results Abnormal [facility] Lymphocytes (Bld) [#/Vol] 0.68 10*3/uL Low [facility] Lymphocytes/100 WBC (Bld) 7.2 % [facility] MCH (RBC) [Entitic mass] 31.4 pg 26.0 - 34.0 pg [facility] MCHC (RBC) [Mass/Vol] 31.6 g/dL 31.0 - 37.0 g/dL [facility] MCV (RBC) [Entitic vol] 99.3 fL 80.0 - 100.0 fL [facility] Monocytes (Bld) [#/Vol] 0.44 10*3/uL [facility] Monocytes/100 WBC (Bld) 4.7 % [facility] Neutrophils (Bld) [#/Vol] 8.12 10*3/uL High [facility] Neutrophils/100 WBC (Bld) 86.1 % [facility] Nucleated RBC (Bld) [#/Vol] 0.00 10*3/uL [facility] Nucleated RBC/100 WBC (Bld) [Ratio] 0.0 % [facility] Platelet mean volume (Bld) [Entitic vol] 9.3 fL Low 9.4 - 12.4 fL [facility] Platelets (Bld) [#/Vol] 246 10*3/uL [facility] RBC (Bld) [#/Vol] 4.21 10*6/uL Low [facility] WBC (Bld) [#/Vol] 9.43 10*3/uL [facility] COVID-19/Influenza A,B [facility] 07-25-2020 Influenza A Not Detected Not Detected [facility] Influenza B Not Detected Not Detected [facility] Interpretation and review of laboratory results Normal [facility] SARS-CoV-2 Not Detected Not Detected [facility] This test was perfor med under the FDA's Emergency Use Authorization (EUA). Testing was performed using the Dimitris Panda SARS-CoV-2 RT-PCR & Influenza A/B Nucleic Acid Test on the Panda Nadja System. This test has not been approved for use in asymptomatic patients and its performance in this patient population has not been evaluated. Negative results do not rule out the presence of SARS-CoV-2, influenza A, and/or influenza B. Fact sheets for the EUA can be found at the following links: For Healthcare Providers: https://www.fda.gov/media /682320/download For Patients: https://www.fda.gov/media /417161/download [facility] CT PULMONARY ARTERIESon 07-09 Interface, Rad In Juliocesar souza Speechq - 07/25/2020 9:28 AM EST EXAMINATION: CTA OF THE CHEST 07/25/2020 TECHNIQUE: CTA of the chest was performed after the administration of intravenous contrast. Multiplanar reformatted images are provided for review. MIP images are provided for review. Dose modulation, iterative reconstruction, and/or weight based adjustment of the mA/kV was utilized to reduce the radiation dose to as low as reasonably achievable. COMPARISON: 07/17/2020, 04/13/2020 HISTORY: ORDERING SYSTEM PROVIDED HISTORY: sob, cp, tachycardia; TECHNOLOGIST PROVIDED HISTORY: Illness/Other Acuity: Acute Reason for Exam: sob, cp, tachycardia Type of Encounter: Initial Additional signs and symptoms: sob, cp, tachycardia FINDINGS: Pulmonary Arteries: Pulmonary arteries are adequately opacified for evaluation. No evidence of intraluminal filling defect to suggest pulmonary embolism. Main pulmonary artery is normal in caliber. Mediastinum: No evidence of mediastinal lymphadenopathy. The heart and pericardium demonstrate no acute abnormality. There is no acute abnormality of the thoracic aorta. Lungs/pleura: Severe emphysematous changes. Bandlike opacity in the superior segment of the right lower lobe. Bullous disease lung apices. The central airways are patent. No focal consolidations. Upper Abdomen: Limited images of the upper abdomen are unremarkable. Soft Tissues/Bones: No acute bone or soft tissue abnormality. IMPRESSION: 1. No evidence of pulmonary embolism or acute pulmonary abnormality. 2. Decreased consolidation in the superior segment of the right lower lobe, compatible with resolving pneumonia. Right middle lobe opacities have resolved. 3. Severe emphysema. Workstation ID: [id number] [facility] 1. No evidence of pulmonary embolism or acute pulmonary abnormality. 2. Decreased consolidation in the superior segment of the right lower lobe, compatible with resolving pneumonia. Right middle lobe opacities have resolved. 3. Severe emphysema. Workstation ID: [id number] [facility] EXAMINATION: CTA OF THE CHEST 07/25/2020 TECHNIQUE: CTA of the chest was performed after the administration of intravenous contrast. Multiplanar reformatted images are provided for review. MIP images are provided for review. Dose modulation, iterative reconstruction, and/or weight based adjustment of the mA/kV was utilized to reduce the radiation dose to as low as reasonably achievable. COMPARISON: 07/17/2020, 04/13/2020 HISTORY: ORDERING SYSTEM PROVIDED HISTORY: sob, cp, tachycardia; TECHNOLOGIST PROVIDED HISTORY: Illness/Other Acuity: Acute Reason for Exam: sob, cp, tachycardia Type of Encounter: Initial Additional signs and symptoms: sob, cp, tachycardia FINDINGS: Pulmonary Arteries: Pulmonary arteries are adequately opacified for evaluation. No evidence of intraluminal filling defect to suggest pulmonary embolism. Main pulmonary artery is normal in caliber. Mediastinum: No evidence of mediastinal lymphadenopathy. The heart and pericardium demonstrate no acute abnormality. There is no acute abnormality of the thoracic aorta. Lungs/pleura: Severe emphysematous changes. Bandlike opacity in the superior segment of the right lower lobe. Bullous disease lung apices. The central airways are patent. No focal consolidations. Upper Abdomen: Limited images of the upper abdomen are unremarkable. Soft Tissues/Bones: No acute bone or soft tissue abnormality. [facility] DRUGS OF ABUSE SCREEN, URINE on 07-25-2020 Amphetamines Ql (U) None Detected None Detected [facility] Comment on above: Urine Amphetamine Cu toff: < 1000 ng/mL = None Detected Barbiturates Screen Ql (U) None Detected None Detected [facility] Comment on above: Urine Barbiturates C utoff: < 200 ng/mL = None Detected Benzodiazepines Ql (U) None Detected None Detected [facility] Comment on above: Urine Benzodiazepine Cutoff: < 200 ng/mL = None Detected Buprenorphine Ql (U) Positive Abnormal None Detected [facility] Comment on above: Urine Buprenorphine Cutoff: < 5 ng/mL = None Detected Cannabinoids Screen Ql (U) None Detected None Detected [facility] Comment on above: Urine Cannabinoids C utoff: < 50 ng/mL = None Detected Cocaine Ql (U) None Detected None Detected [facility] Comment on above: Urine Cocaine Cutoff : < 300 ng/mL = None Detected Fentanyl+Norfentanyl Screen Ql (U) None Detected None Detected [facility] Comment on above: Urine Fentanyl Cutof f: < 1 ng/mL = None Detected Interpretation and review of laboratory results Abnormal [facility] Methadone Screen Ql (U) None Detected [facility] Comment on above: Urine Methadone Cuto ff: < 300 ng/mL = None Detected Opiates Screen Ql (U) None Detected None Detect ed [facility] Comment on above: Urine Opiates Cutoff : < 300 ng/mL = None Detected Oxycodone Ql (U) None Detected None Detected [facility] Comment on above: Urine Oxycodone Cuto ff: < 100 ng/mL = None Detected Screen results shoul d be used for treatment purposes only. Specimen will be kept for 2 weeks, if the sample is adequate. Confirmation testing can be initiated by calling the lab within 2 weeks. [facility] ECG 12-LEADon 07-25-2020 Atrial Rate 114 BPM [facility] P [place] 80 degrees [facility] P-R Interval 132 ms [facility] Q-T Interval 322 ms [facility] QRS Duration 80 ms [facility] QTC Calculation (Bezet) 443 ms [facility] R [place] 73 degrees [facility] T [place] 86 degrees [facility] Ventricular Rate 114 BPM [facility] th Poor data qualit y, interpretation may be adversely affected Sinus tachycardia Otherwise normal ECG When compared with ECG of 17-JUL-2020 14:00, No significant change was found Confirmed by Physician, ED ([id number]), photo editor BILL SANTACRUZ ([id number]) on 07/25/2020 8:05:49 AM [facility] NT Pro BNPon 07-25-2020 Interpretation and review of laboratory results Normal [facility] Natriuretic peptide.B prohormone N-Terminal [Mass/Vol] 82 pg/mL 0 - 300 pg/mL [facility] Pride Study Cut-offs Rule In: < /= 50 Years >450 pg/mL 51 Years - 75 Years >900 pg/mL 76 Years - 99 Years >1800 pg/mL Rule Out: All patients <300 pg/mL [facility] Otheron 07-25-2020 Extra Tube Hold for add-ons. [facility] Comment on above: Auto resulted. Reflex Lactic Acid, Plasmaon 07-25-2020 Interpretation and review of laboratory results Abnormal [facility] Lactate [Moles/Vol] 2.1 mmol/L High 0.6 - 2. 0 mmol/L [facility] TROPONINon 07-25-2020 Troponin T.cardiac [Mass/Vol] 11 ng/L <=22 [facility] Troponin T.cardiac [Mass/Vol] Normal [facility] Ultrasound Duplex Venous Leg s BILATERALon 07-25-2020 Patient Info Name: WOLF TURCIOS Age: 60 years : 1960 Gender: Male Exam Date: 07/25/2020 9:36 AM Patient Status: Emergency Mental Health Aides Teacher: MORIAH STRICKLAND RVT^^^^ Referring Physician: RAVEN Amador; Attending Physician: FLORES MAYEN Indications R60.9 - Edema, unspecified Procedure Description 61334 Duplex examination using B-mode, color and spectral Doppler of extremity veins including responses to compression and other maneuvers; complete bilateral study. Conclusions * No evidence of deep or superficial vein thrombosis in either lower extremity. . Report Signatures Finalized by ANTONIO Collazo MD on 07/25/2020 02:51 PM [facility] Interface, Rad In [facility] - 07/25/2020 2:51 PM EST Patient Info Name: WOLF TURCIOS Age: 60 years : 1960 Gender: Male Exam Date: 07/25/2020 9:36 AM Patient Status: Emergency Mental Health Aides Teacher: MORIAH STRICKLAND RVT^^^^ Referring Physician: RAVEN Amador; Attending Physician: FLORES MAYEN Indications R60.9 - Edema, unspecified Procedure Description 65693 Duplex examination using B-mode, color and spectral Doppler of extremity veins including responses to compression and other maneuvers; complete bilateral study. Conclusions * No evidence of deep or superficial vein thrombosis in either lower extremity. . Report Signatures Finalized by ANTONIO Collazo MD on 07/25/2020 02:51 PM [facility] XR Chest 1 Viewon 07-25-2020 Mild right basilar atelectasis. Otherwise no acute focal process. Workstation ID: [id number] [facility] EXAMINATION: ONE XRA Y VIEW OF THE CHEST 07/25/2020 8:12 am COMPARISON: 07/17/2020 HISTORY: ORDERING SYSTEM PROVIDED HISTORY: sob; TECHNOLOGIST PROVIDED HISTORY: Illness/Other Acuity: Acute Reason for Exam: sob Type of Encounter: Initial Additional signs and symptoms: sob FINDINGS: There is elevation the right hemidiaphragm with right basilar atelectasis. Lungs are clear without focal consolidation or pulmonary edema. No evidence of pleural effusion or pneumothorax. Cardiomediastinal silhouette and bony thorax are unchanged. [facility], [facility] - 07/25/2020 9:32 AM EST EXAMINATION: ONE XRAY VIEW OF THE CHEST 07/25/2020 8:12 am COMPARISON: 07/17/2020 HISTORY: ORDERING SYSTEM PROVIDED HISTORY: sob; TECHNOLOGIST PROVIDED HISTORY: Illness/Other Acuity: Acute Reason for Exam: sob Type of Encounter: Initial Additional signs and symptoms: sob FINDINGS: There is elevation the right hemidiaphragm with right basilar atelectasis. Lungs are clear without focal consolidation or pulmonary edema. No evidence of pleural effusion or pneumothorax. Cardiomediastinal silhouette and bony thorax are unchanged. IMPRESSION: Mild right basilar atelectasis. Otherwise no acute focal process. Workstation ID: [id number] [facility] XR Hip Right With Pelvis 2-3 Views (Routine)on 07-25-2020 EXAMINATION: ONE XRA Y VIEW OF THE PELVIS AND TWO XRAY VIEWS RIGHT HIP 07/25/2020 8:12 am COMPARISON: 07/10/2020 HISTORY: ORDERING SYSTEM PROVIDED HISTORY: fall, hip pain; TECHNOLOGIST PROVIDED HISTORY: Illness/Other Acuity: Acute Reason for Exam: fall, hip pain Type of Encounter: Initial Additional signs and symptoms: fall, hip pain FINDINGS: Moderate to severe right hip osteoarthritis with superior joint space narrowing and large marginal osteophytes. No acute fracture or dislocation. Visualized pelvis is intact. Left hip demonstrates no significant degenerative changes. [facility], Rad In [facility] - 07/25/2020 9:33 AM EST EXAMINATION: ONE XRAY VIEW OF THE PELVIS AND TWO XRAY VIEWS RIGHT HIP 07/25/2020 8:12 am COMPARISON: 07/10/2020 HISTORY: ORDERING SYSTEM PROVIDED HISTORY: fall, hip pain; TECHNOLOGIST PROVIDED HISTORY: Illness/Other Acuity: Acute Reason for Exam: fall, hip pain Type of Encounter: Initial Additional signs and symptoms: fall, hip pain FINDINGS: Moderate to severe right hip osteoarthritis with superior joint space narrowing and large marginal osteophytes. No acute fracture or dislocation. Visualized pelvis is intact. Left hip demonstrates no significant degenerative changes. IMPRESSION: Moderate to severe right hip osteoarthritis. No acute fracture or dislocation. Workstation ID: [id number] [facility] Moderate to severe r ight hip osteoarthritis. No acute fracture or dislocation. Workstation ID: [id number] [facility] ECG 12-LEADon 07-19-2020 Atrial Rate 110 BPM [facility] P [place] 82 degrees [facility] P-R Interval 138 ms [facility] Q-T Interval 320 ms [facility] QRS Duration 86 ms [facility] QTC Calculation (Bezet) 433 ms [facility] R [place] 77 degrees [facility] T [place] 87 degrees [facility] Ventricular Rate 110 BPM [facility] Sinus tachycardia Possible Left atrial enlargement Borderline ECG When compared with ECG of 05-JUL-2020 14:05, No significant change was found Confirmed by Physician, ED ([id number]), photo editor LAUREN AVILA ([id number]) on 07/19/2020 8:21:16 AM [facility] EKGon 07-18-2020 Ordered by an unspec ified provider. [facility] BLOOD GAS, VBG WITH FULL WILLARD Jarod 07-17-2020 Base excess Calc (BldV) [Moles/Vol] 2.8 mmol/L High [facility] Calcium.ionized [Mass/Vol] 4.7 mg/dL 4.5 - 5.3 mg/dL [facility] Carboxyhemoglobin (BldA) [Mass fraction] 3.0 High <=1.5 % of total Hb [facility] Comment on above: Reference Ranges: Suburban Non-smokers: <1.5% Smokers: 1.5-5.0% Heavy Smokers: 5.0-9.0% CO2 (BldV) [Partial pressure] 63.3 mm[Hg] High [facility] Glucose [Mass/Vol] 117 mg/dL High 65 - 99 mg/dL [facility] HCO3 (Bld) [Moles/Vol] 30.8 mmol/L High 24.0 - 28.0 mmol/L [facility] Hematocrit (BldA) [Volume fraction] 48.3 % 41.0 - 53.0 % [facility] Hemoglobin (Bld) [Mass/Vol] 15.8 g/dL 13.5 - 17.5 g/dL [facility] Inhaled oxygen concentration 21 %/L [facility] Interpretation and review of laboratory results Abnormal [facility] Lactate [Moles/Vol] 3.0 mmol/L High 0.6 - 2. 0 mmol/L [facility] Methemoglobin (BldA) [Mass fraction] 0.3 % 0.0 - 2.0 % [facility] Oxygen (BldV) [Partial pressure] 50 mm[Hg] High [facility] Oxygen saturation in Venous blood 82.1 % High 40.0 - 70.0 % [facility] Oxyhemoglobin (BldA) [Mass fraction] 79.4 % No established reference range [facility] pH (BldV) 7.31 [pH] Low [facility] Potassium [Moles/Vol] 3.7 mmol/L 3.5 - 5.1 mmol/L [facility] Sodium [Moles/Vol] 141 mmol/L 135 - 145 mmol/L [facility] Type of Oxygen saturation device Bipap [facility] Other 23/01 [facility] BMPon 07-17-2020 Anion gap [Moles/Vol] 14 mmol/L 10 - 2 0 mmol/L [facility] Calcium [Mass/Vol] 9.3 mg/dL 8.4 - 10. 2 mg/dL [facility] Chloride [Moles/Vol] 98 mmol/L 98 - 10 8 mmol/L [facility] Creatinine [Mass/Vol] 0.72 mg/dL 0.50 - 1.30 [facility] GFR/1.73 sq M predicted among non-blacks MDRD (S/P/Bld) [Vol rate/Area] The eGFR should be used for monitoring renal function only and not for medication dosing. [facility] GFR/1.73 sq M.predicted CKD-EPI (S/P/Bld) [Vol rate/Area] 101 >=60 mL/min/1.73 m2 [facility] Glucose [Mass/Vol] 121 mg/dL High 65 - 99 mg/dL [facility] HCO3 [Moles/Vol] 31 mmol/L 21 - 32 mmol/L [facility] Interpretation and review of laboratory results Abnormal [facility] Potassium [Moles/Vol] 3.8 mmol/L 3.5 - 5.1 mmol/L [facility] Sodium [Moles/Vol] 139 mmol/L 135 - 145 mmol/L [facility] Urea nitrogen [Mass/Vol] 11 mg/dL 8 - 25 mg/dL [facility] Urea nitrogen/Creatinine [Mass ratio] 15.3 mg/mg [facility] Blood Gas, Venouson 07-17-19 Base excess Calc (BldV) [Moles/Vol] 5.9 mmol/L High [facility] CO2 (BldV) [Partial pressure] 57.3 mm[Hg] High [facility] HCO3 (Bld) [Moles/Vol] 32.5 mmol/L High 24.0 - 28.0 mmol/L [facility] Hematocrit (BldA) [Volume fraction] 43.9 % 41.0 - 53.0 % [facility] Hemoglobin (Bld) [Mass/Vol] 14.3 g/dL 13.5 - 17.5 g/dL [facility] Inhaled oxygen concentration 21 %/L [facility] Interpretation and review of laboratory results Abnormal [facility] Oxygen (BldV) [Partial pressure] 38 mm[Hg] [facility] Oxygen saturation in Venous blood 69.8 % 40.0 - 70.0 % [facility] pH (BldV) 7.37 [pH] [facility] Type of Oxygen saturation device [facility] Other 23/01 [facility] CBC WITH AUTO DIFFERENTIALon 07-17-2020 Basophils (Bld) [#/Vol] 0.06 10*3/uL [facility] Basophils/100 WBC (Bld) 0.5 % [facility] Eosinophils (Bld) [#/Vol] 0.44 10*3/uL [facility] Eosinophils/100 WBC (Bld) 3.6 % [facility] Erythrocyte distribution width (RBC) [Entitic vol] 12.9 % 11.6 - 14.8 % [facility] Hematocrit (Bld) [Volume fraction] 47.6 % 41.0 - 53.0 % [facility] Hemoglobin (Bld) [Mass/Vol] 15.4 g/dL 13.5 - 17.5 g/dL [facility] Immature granulocytes (Bld) [#/Vol] 0.04 10*3/uL [facility] Immature granulocytes/100 WBC (Bld) 0.30 % [facility] Comment on above: The IG parameter is the percentage of metamyelocytes, myelocytes and promyelocytes. An immature granulocyte count (IG) of 1% or more suggests the possibility of infection, an IG count of 3% is very likely related to an infection. Interpretation and review of laboratory results Abnormal [facility] Lymphocytes (Bld) [#/Vol] 2.09 10*3/uL [facility] Lymphocytes/100 WBC (Bld) 17.0 % [facility] MCH (RBC) [Entitic mass] 31.4 pg 26.0 - 34.0 pg [facility] MCHC (RBC) [Mass/Vol] 32.4 g/dL 31.0 - 37.0 g/dL [facility] MCV (RBC) [Entitic vol] 97.1 fL 80.0 - 100.0 fL [facility] Monocytes (Bld) [#/Vol] 0.97 10*3/uL High [facility] Monocytes/100 WBC (Bld) 7.9 % [facility] Neutrophils (Bld) [#/Vol] 8.71 10*3/uL High [facility] Neutrophils/100 WBC (Bld) 70.7 % [facility] Nucleated RBC (Bld) [#/Vol] 0.00 10*3/uL [facility] Nucleated RBC/100 WBC (Bld) [Ratio] 0.0 % [facility] Platelet mean volume (Bld) [Entitic vol] 9.9 fL 9.4 - 12.4 fL [facility] Platelets (Bld) [#/Vol] 291 10*3/uL [facility] RBC (Bld) [#/Vol] 4.90 10*6/uL [facility] ealth WBC (Bld) [#/Vol] 12.31 10*3/uL [facility] COVID-19/Influenza A,B Molec ularon 07-17-2020 Influenza A Not Detected Not Detected [facility] Influenza B Not Detected Not Detected [facility] Interpretation and review of laboratory results Normal [facility] SARS-CoV-2 Not Detected Not Detected [facility] This test was perfor med under the FDA's Emergency Use Authorization (EUA). Testing was performed using the Dimitris Panda SARS-CoV-2 RT-PCR & Influenza A/B Nucleic Acid Test on the Panda Nadja System. This test has not been approved for use in asymptomatic patients and its performance in this patient population has not been evaluated. Negative results do not rule out the presence of SARS-CoV-2, influenza A, and/or influenza B. Fact sheets for the EUA can be found at the following links: For Healthcare Providers: https://www.fda.gov/media /944039/download For Patients: https://www.fda.gov/media /895037/download [facility] Otheron 07-17-2020 Extra Tube Hold for add-ons. [facility] Comment on above: Auto resulted. Reflex Lactic Acid, Plasmaon 07-17-2020 Interpretation and review of laboratory results Abnormal [facility] Lactate [Moles/Vol] 2.6 mmol/L High 0.6 - 2. 0 mmol/L [facility] TROPONINon 07-17-2020 Troponin T.cardiac [Mass/Vol] No biomarker evidence of cardiac injury. [facility] Troponin T.cardiac [Mass/Vol] 11 ng/L <=22 [facility] Troponin T.cardiac [Mass/Vol] 0 ng/L < = -/+ 7 change [facility] Troponin T.cardiac [Mass/Vol] 11 ng/L <=22 [facility] Troponin T.cardiac [Mass/Vol] Normal [facility] XR Chest 1 Viewon 07-17-2020 EXAMINATION: ONE XRA Y VIEW OF THE CHEST 07/17/2020 2:11 pm COMPARISON: 07/05/2020, 07/29/2019, 04/16/2020. HISTORY: ORDERING SYSTEM PROVIDED HISTORY: Dyspnea; TECHNOLOGIST PROVIDED HISTORY: Illness/Other Acuity: Unknown Reason for Exam: Dyspnea Type of Encounter: Initial Additional signs and symptoms: Dyspnea FINDINGS: There is improved aeration within the right lower lung field since the comparison exam consistent with clearing of a right lower lung pneumonia. There is slight asymmetric elevation of the right diaphragm redemonstrated. Heart size is normal. I see no evidence of CHF. [facility] Interface, Rad In Fu ji Speechq - 07/17/2020 2:31 PM EST EXAMINATION: ONE XRAY VIEW OF THE CHEST 07/17/2020 2:11 pm COMPARISON: 07/05/2020, 07/29/2019, 04/16/2020. HISTORY: ORDERING SYSTEM PROVIDED HISTORY: Dyspnea; TECHNOLOGIST PROVIDED HISTORY: Illness/Other Acuity: Unknown Reason for Exam: Dyspnea Type of Encounter: Initial Additional signs and symptoms: Dyspnea FINDINGS: There is improved aeration within the right lower lung field since the comparison exam consistent with clearing of a right lower lung pneumonia. There is slight asymmetric elevation of the right diaphragm redemonstrated. Heart size is normal. I see no evidence of CHF. IMPRESSION: Near complete resolution of the right lower lung infiltrate. No new abnormality identified. [employer] Workstation ID: [id number] [facility] Near complete resolu tion of the right lower lung infiltrate. No new abnormality identified. [employer] Workstation ID: [id number] [facility] Otheron 07-10-2020 EXAMINATION: TWO XRA Y VIEWS OF THE RIGHT FEMUR; ONE XRAY VIEW OF THE PELVIS AND TWO XRAY VIEWS RIGHT HIP; TWO XRAY VIEWS OF THE RIGHT KNEE 07/10/2020 10:04 am COMPARISON: Comparison is made with a right hip and pelvis study from 12/12/2019 and 08/17/2019 respectively. HISTORY: ORDERING SYSTEM PROVIDED HISTORY: fall; TECHNOLOGIST PROVIDED HISTORY: Injury/Trauma Acuity: Acute Reason for Exam: fall Type of Encounter: Initial Mechanism of Injury: fall FINDINGS: RIGHT HIP: There are advanced changes of osteoarthritis involving the right hip. There is subchondral cyst formation with bony sclerosis and marginal osteophyte formation. There is complete loss of the joint space superiorly. The right femoral neck and intratrochanteric area shows no evidence of a fracture. RIGHT FEMUR: No fracture or subluxation identified. RIGHT KNEE: Soft tissue swelling is present anterior to the patella. No fracture or subluxation of the right knee is identified. [facility] Interface, Rad In Fu ji Speechq - 07/10/2020 10:59 AM EST EXAMINATION: TWO XRAY VIEWS OF THE RIGHT FEMUR; ONE XRAY VIEW OF THE PELVIS AND TWO XRAY VIEWS RIGHT HIP; TWO XRAY VIEWS OF THE RIGHT KNEE 07/10/2020 10:04 am COMPARISON: Comparison is made with a right hip and pelvis study from 12/12/2019 and 08/17/2019 respectively. HISTORY: ORDERING SYSTEM PROVIDED HISTORY: fall; TECHNOLOGIST PROVIDED HISTORY: Injury/Trauma Acuity: Acute Reason for Exam: fall Type of Encounter: Initial Mechanism of Injury: fall FINDINGS: RIGHT HIP: There are advanced changes of osteoarthritis involving the right hip. There is subchondral cyst formation with bony sclerosis and marginal osteophyte formation. There is complete loss of the joint space superiorly. The right femoral neck and intratrochanteric area shows no evidence of a fracture. RIGHT FEMUR: No fracture or subluxation identified. RIGHT KNEE: Soft tissue swelling is present anterior to the patella. No fracture or subluxation of the right knee is identified. IMPRESSION: Severe osteoarthritis of the right hip joint with loss of the joint space, subchondral cyst formation, bony sclerosis and osteophyte formation. No fracture of the right femoral neck or intratrochanteric region. The rest of the right femur appears unremarkable. Soft tissue swelling anterior to the patella. No fracture identified involving the right knee. [employer] Workstation ID: [id number] Severe osteoarthriti s of the right hip joint with loss of the joint space, subchondral cyst formation, bony sclerosis and osteophyte formation. No fracture of the right femoral neck or intratrochanteric region. The rest of the right femur appears unremarkable. Soft tissue swelling anterior to the patella. No fracture identified involving the right knee. [employer] Workstation ID: [id number] Lumbar Spine 2-3 Views (S tandard)on 07-10-2020 EXAMINATION: THREE X RAY VIEWS OF THE LUMBAR SPINE 07/10/2020 9:47 AM COMPARISON: None. HISTORY: ORDERING SYSTEM PROVIDED HISTORY: fall; TECHNOLOGIST PROVIDED HISTORY: Injury/Trauma Acuity: Acute Reason for Exam: fall Type of Encounter: Initial Mechanism of Injury: fall FINDINGS: No convincing evidence of a compression fracture is identified within the lumbar spine. There is loss of disc space height from L4 through S1 consistent with degenerative disc disease. Facet joint arthropathy is seen from L3 through S1. [facility], Rad In Fu ji Speechq - 07/10/2020 10:58 AM EST EXAMINATION: THREE XRAY VIEWS OF THE LUMBAR SPINE 07/10/2020 9:47 AM COMPARISON: None. HISTORY: ORDERING SYSTEM PROVIDED HISTORY: fall; TECHNOLOGIST PROVIDED HISTORY: Injury/Trauma Acuity: Acute Reason for Exam: fall Type of Encounter: Initial Mechanism of Injury: fall FINDINGS: No convincing evidence of a compression fracture is identified within the lumbar spine. There is loss of disc space height from L4 through S1 consistent with degenerative disc disease. Facet joint arthropathy is seen from L3 through S1. IMPRESSION: Changes of DJD and DDD as described above. No acute fractures identified. [employer] Workstation ID: [id number] Changes of DJD and D DD as described above. No acute fractures identified. [employer] Workstation ID: [id number] [facility] BLOOD G[facility], VBG WITH FULL WILLARD Jarod 07-05-2020 Base excess Calc (BldV) [Moles/Vol] 3.2 mmol/L High [facility] Calcium.ionized [Mass/Vol] 4.7 mg/dL 4.5 - 5.3 mg/dL [facility] Carboxyhemoglobin (BldA) [Mass fraction] 2.3 High <=1.5 % of total Hb [facility] Comment on above: Reference Ranges: Suburb Non-smokers: <1.5% Smokers: 1.5-5.0% Heavy Smokers: 5.0-9.0% CO2 (BldV) [Partial pressure] 61.5 mm[Hg] High [facility] Glucose [Mass/Vol] 91 mg/dL 65 - 99 mg/dL [facility] HCO3 (Bld) [Moles/Vol] 30.8 mmol/L High 24.0 - 28.0 mmol/L [facility] Hematocrit (BldA) [Volume fraction] 47.3 % 41.0 - 53.0 % [facility] Hemoglobin (Bld) [Mass/Vol] 15.4 g/dL 13.5 - 17.5 g/dL [facility] Inhaled oxygen concentration 21 %/L [facility] Interpretation and review of laboratory results Abnormal [facility] Lactate [Moles/Vol] 1.3 mmol/L 0.6 - 2. 0 mmol/L [facility] Methemoglobin (BldA) [Mass fraction] 0.5 % 0.0 - 2.0 % [facility] Oxygen (BldV) [Partial pressure] 24 mm[Hg] Low [facility] Oxygen saturation in Venous blood 36.8 % Low 40.0 - 70.0 % [facility] Oxyhemoglobin (BldA) [Mass fraction] 35.8 % No established reference range [facility] pH (BldV) 7.32 [pH] [facility] Potassium [Moles/Vol] 3.7 mmol/L 3.5 - 5.1 mmol/L [facility] Sodium [Moles/Vol] 137 mmol/L 135 - 145 mmol/L [facility] Type of Oxygen saturation device Room Air [facility] 07-05-2020 Anion gap [Moles/Vol] 15 mmol/L 10 - 2 0 mmol/L [facility] Calcium [Mass/Vol] 9.4 mg/dL 8.4 - 10. 2 mg/dL [facility] Chloride [Moles/Vol] 98 mmol/L 98 - 10 8 mmol/L [facility] Creatinine [Mass/Vol] 0.86 mg/dL 0.50 - 1.30 [facility] GFR/1.73 sq M predicted among non-blacks MDRD (S/P/Bld) [Vol rate/Area] The eGFR should be used for monitoring renal function only and not for medication dosing. [facility] GFR/1.73 sq M.predicted CKD-EPI (S/P/Bld) [Vol rate/Area] 94 >=60 mL/min/1.73 m2 [facility] Glucose [Mass/Vol] 93 mg/dL 65 - 99 mg/dL [facility] HCO3 [Moles/Vol] 29 mmol/L 21 - 32 mmol/L [facility] Interpretation and review of laboratory results Normal [facility] Potassium [Moles/Vol] 4.0 mmol/L 3.5 - 5.1 mmol/L [facility] Sodium [Moles/Vol] 138 mmol/L 135 - 145 mmol/L [facility] Urea nitrogen [Mass/Vol] 17 mg/dL 8 - 25 mg/dL [facility] Urea nitrogen/Creatinine [Mass ratio] 19.8 mg/mg [facility] CBC WITH AUTO DIFFERENTIALon 07-05-2020 Basophils (Bld) [#/Vol] 0.10 10*3/uL [facility] Basophils/100 WBC (Bld) 0.6 % [facility] Eosinophils (Bld) [#/Vol] 0.58 10*3/uL High [facility] Eosinophils/100 WBC (Bld) 3.2 % [facility] Erythrocyte distribution width (RBC) [Entitic vol] 13.1 % 11.6 - 14.8 % [facility] Hematocrit (Bld) [Volume fraction] 47.1 % 41.0 - 53.0 % [facility] Hemoglobin (Bld) [Mass/Vol] 15.1 g/dL 13.5 - 17.5 g/dL [facility] Immature granulocytes (Bld) [#/Vol] 0.08 10*3/uL [facility] Immature granulocytes/100 WBC (Bld) 0.40 % [facility] Comment on above: The IG parameter is the percentage of metamyelocytes, myelocytes and promyelocytes. An immature granulocyte count (IG) of 1% or more suggests the possibility of infection, an IG count of 3% is very likely related to an infection. Interpretation and review of laboratory results Abnormal [facility] Lymphocytes (Bld) [#/Vol] 1.47 10*3/uL [facility] Lymphocytes/100 WBC (Bld) 8.1 % [facility] MCH (RBC) [Entitic mass] 31.5 pg 26.0 - 34.0 pg [facility] MCHC (RBC) [Mass/Vol] 32.1 g/dL 31.0 - 37.0 g/dL [facility] MCV (RBC) [Entitic vol] 98.1 fL 80.0 - 100.0 fL [facility] Monocytes (Bld) [#/Vol] 1.39 10*3/uL [facility] Monocytes/100 WBC (Bld) 7.7 % [facility] Neutrophils (Bld) [#/Vol] 14.54 10*3/uL [facility] Neutrophils/100 WBC (Bld) 80.0 % [facility] Nucleated RBC (Bld) [#/Vol] 0.00 10*3/uL [facility] Nucleated RBC/100 WBC (Bld) [Ratio] 0.0 % [facility] Platelet mean volume (Bld) [Entitic vol] 9.6 fL 9.4 - 12.4 fL [facility] Platelets (Bld) [#/Vol] 303 10*3/uL [facility] RBC (Bld) [#/Vol] 4.80 10*6/uL [facility] ealth WBC (Bld) [#/Vol] 18.16 10*3/uL [facility] CT CHEST WITHOUT CONTRASTon 07-05-2020 1. Bibasilar atelect asis with decreased right middle and right lower lobe consolidative opacities consistent with improving pneumonia since 04/13/2020. 2. Severe emphysema. 3. No central obstructing airway lesion. Workstation ID: [id number] [facility] Interface, Rad In Fu ji Speechq - 07/05/2020 6:49 PM EST EXAMINATION: CT OF THE CHEST WITHOUT CONTRAST 07/05/2020 TECHNIQUE: CT of the chest was performed without the administration of intravenous contrast. Multiplanar reformatted images are provided for review. Dose modulation, iterative reconstruction, and/or weight based adjustment of the mA/kV was utilized to reduce the radiation dose to as low as reasonably achievable. COMPARISON: Radiograph earlier today. CT 04/13/2020 HISTORY: ORDERING SYSTEM PROVIDED HISTORY: Pneumonia; TECHNOLOGIST PROVIDED HISTORY: Illness/Other Acuity: Acute Reason for Exam: Pneumonia Type of Encounter: Initial Additional signs and symptoms: Pneumonia FINDINGS: Mediastinum: The heart is normal in size. There is no pericardial effusion or mediastinal mass. No abnormal mediastinal or hilar lymph node is seen. The thoracic aorta is normal in caliber. Lungs/pleura: Severe emphysema is noted with right middle and right greater than left lower lobe atelectasis. There are superimposed patchy consolidative opacities in the right middle and right lower lobes, which have decreased since 04/13/2020. No pneumothorax or pleural effusion is evident. No central obstructing airway lesion is evident. Upper Abdomen: No acute abnormality in the visualized upper abdomen. Soft Tissues/Bones: No acute osseous or soft tissue abnormality. IMPRESSION: 1. Bibasilar atelectasis with decreased right middle and right lower lobe consolidative opacities consistent with improving pneumonia since 04/13/2020. 2. Severe emphysema. 3. No central obstructing airway lesion. Workstation ID: [id number] [facility] EXAMINATION: CT OF T HE CHEST WITHOUT CONTRAST 07/05/2020 TECHNIQUE: CT of the chest was performed without the administration of intravenous contrast. Multiplanar reformatted images are provided for review. Dose modulation, iterative reconstruction, and/or weight based adjustment of the mA/kV was utilized to reduce the radiation dose to as low as reasonably achievable. COMPARISON: Radiograph earlier today. CT 04/13/2020 HISTORY: ORDERING SYSTEM PROVIDED HISTORY: Pneumonia; TECHNOLOGIST PROVIDED HISTORY: Illness/Other Acuity: Acute Reason for Exam: Pneumonia Type of Encounter: Initial Additional signs and symptoms: Pneumonia FINDINGS: Mediastinum: The heart is normal in size. There is no pericardial effusion or mediastinal mass. No abnormal mediastinal or hilar lymph node is seen. The thoracic aorta is normal in caliber. Lungs/pleura: Severe emphysema is noted with right middle and right greater than left lower lobe atelectasis. There are superimposed patchy consolidative opacities in the right middle and right lower lobes, which have decreased since 04/13/2020. No pneumothorax or pleural effusion is evident. No central obstructing airway lesion is evident. Upper Abdomen: No acute abnormality in the visualized upper abdomen. Soft Tissues/Bones: No acute osseous or soft tissue abnormality. [facility] ECG 12-LEADon 07-05-2020 Atrial Rate 116 BPM [facility] P [place] 85 degrees [facility] P-R Interval 142 ms [facility] Q-T Interval 314 ms [facility] QRS Duration 88 ms [facility] QTC Calculation (Bezet) 436 ms [facility] R [place] 72 degrees [facility] T [place] 85 degrees [facility] Ventricular Rate 116 BPM [facility] Sinus tachycardia Otherwise normal ECG When compared with ECG of 28-MAY-2020 11:57, No significant change was found Confirmed by Physician, ED ([id number]), photo editor CARMEN FLEMING ([id number]) on 07/05/2020 2:50:18 PM [facility] EKGon 07-05-2020 Ordered by an unspec ified provider. [facility] Otheron 07-05-2020 Extra Tube Hold for add-ons. [facility] Comment on above: Auto resulted. XR Chest 1 Viewon 07-05-2020 EXAMINATION: ONE XRA Y VIEW OF THE CHEST 07/05/2020 3:39 PM COMPARISON: 05/28/2020. HISTORY: ORDERING SYSTEM PROVIDED HISTORY: sob, had covid 2 months ago, sob x 3 days cough; TECHNOLOGIST PROVIDED HISTORY: Illness/Other Acuity: Acute Reason for Exam: sob, had covid 2 months ago, sob x 3 days cough Type of Encounter: Initial Additional signs and symptoms: Unk FINDINGS: There is persistent bandlike opacity in the medial aspect of the right lower lung. Increasing nodular densities present at the inferior aspect of the opacity. There is associated right lower lobe volume loss. The left lung is clear. The cardiac silhouette is normal. [facility] Interface, Rad In Fu ji Speechq - 07/05/2020 9:56 PM EST EXAMINATION: ONE XRAY VIEW OF THE CHEST 07/05/2020 3:39 PM COMPARISON: 05/28/2020. HISTORY: ORDERING SYSTEM PROVIDED HISTORY: sob, had covid 2 months ago, sob x 3 days cough; TECHNOLOGIST PROVIDED HISTORY: Illness/Other Acuity: Acute Reason for Exam: sob, had covid 2 months ago, sob x 3 days cough Type of Encounter: Initial Additional signs and symptoms: Unk FINDINGS: There is persistent bandlike opacity in the medial aspect of the right lower lung. Increasing nodular densities present at the inferior aspect of the opacity. There is associated right lower lobe volume loss. The left lung is clear. The cardiac silhouette is normal. IMPRESSION: Enlarged nodular density in the right lower lobe. Differential includes scarring, recurrent pneumonia, or neoplasm. RM/lab Workstation ID: [id number] [facility] Enlarged nodular den sity in the right lower lobe. Differential includes scarring, recurrent pneumonia, or neoplasm. RM/lab Workstation ID: [id number] [facility] Hematologyon 06-19-2020 INR Coag (PPP) [Relative time] 0.9 {INR} [facility] PT Coag (PPP) [Time] 11.9 s [facility] Hematocrit (Bld) [Volume fraction] 47.3 % 41 - 53 % [facility] Hemoglobin (Bld) [Mass/Vol] 15.0 g/dL 13.5 - 17.5 g/dL [facility] MCH (RBC) [Entitic mass] 31.6 pg 26 - 34 pg [facility] MCV (RBC) [Entitic vol] 99.8 fL 80 - 100 fL [facility] Nucleated RBC (Bld) [#/Vol] 0.00 10*3/uL [facility] Platelets (Bld) [#/Vol] 275 10*3/uL [facility] RBC (Bld) [#/Vol] 4.74 10*6/uL [facility] WBC (Bld) [#/Vol] 9.57 10*3/uL [facility] Metabolic Panelon 06-19-2020 Anion gap [Moles/Vol] 11 mmol/L 10 - 2 0 mmol/L [facility] Calcium [Mass/Vol] 9.2 mg/dL 8.4 - 10. 2 mg/dL [facility] Chloride [Moles/Vol] 100 mmol/L 98 - 10 8 mmol/L [facility] Creatinine [Mass/Vol] 0.71 mg/dL 0.50 - 1.30 [facility] GFR/1.73 sq M predicted among non-blacks MDRD (S/P/Bld) [Vol rate/Area] The eGFR should be used for monitoring renal function only and not for medication dosing. [facility] Glucose [Mass/Vol] 94 mg/dL 65 - 99 mg/dL [facility] Potassium [Moles/Vol] 4.0 mmol/L 3.5 - 5.1 mmol/L [facility] Sodium [Moles/Vol] 138 mmol/L 135 - 145 mmol/L [facility] Urea nitrogen [Mass/Vol] 11 mg/dL 8 - 25 mg/dL [facility] Urea nitrogen/Creatinine [Mass ratio] 15.5 mg/mg [facility] Otheron 06-19-2020 GFR/1.73 sq M.predicted CKD-EPI (S/P/Bld) [Vol rate/Area] 102 >=60 mL/min/1.73 m2 [facility] HCO3 [Moles/Vol] 31 mmol/L 21 - 32 mmol/L [facility] Interpretation and review of laboratory results Normal [facility] Interpretation and review of laboratory results Normal [facility] During the induction phase of oral anticoagulation, the INR may not reflect the anticoagulation status of the patient. Therapeutic ranges for INR's are: Most clinical situations: INR 2.0-3.0 Mechanical Prosthetic Valve: INR 2.5-3.5 Critical: INR >5.0 [facility] Erythrocyte distribution width (RBC) [Entitic vol] 13.8 % 11.6 - 14.8 % [facility] MCHC (RBC) [Mass/Vol] 31.7 g/dL 31 - 37 g/dL [facility] Nucleated RBC/100 WBC (Bld) [Ratio] 0.0 % [facility] Platelet mean volume (Bld) [Entitic vol] 9.5 fL 9.4 - 12.4 fL [facility] BLOOD GAS, VBG WITH FULL WILLARD [place] 05-28-2020 Base excess Calc (BldV) [Moles/Vol] 2.2 mmol/L High [facility] Calcium.ionized [Mass/Vol] 4.8 mg/dL 4.5 - 5.3 mg/dL [facility] Carboxyhemoglobin (BldA) [Mass fraction] 2.9 High <=1.5 % of total Hb [facility] Comment on above: Reference Ranges: [place] Non-smokers: <1.5% Smokers: 1.5-5.0% Heavy Smokers: 5.0-9.0% CO2 (BldV) [Partial pressure] 61.0 mm[Hg] High [facility] Glucose [Mass/Vol] 136 mg/dL High 65 - 99 mg/dL [facility] HCO3 (Bld) [Moles/Vol] 30.0 mmol/L High 24 - 28 mmol/L [facility] Hematocrit (BldA) [Volume fraction] 49.3 % 41 - 53 % [facility] Hemoglobin (Bld) [Mass/Vol] 16.1 g/dL 13.5 - 18 g/dL [facility] Lactate [Moles/Vol] 1.2 mmol/L 0.6 - 2 mmol/L [facility] Methemoglobin (BldA) [Mass fraction] 0.7 % 0 - 2 % [facility] Oxygen (BldV) [Partial pressure] 29 mm[Hg] [facility] Oxygen saturation in Venous blood 47.6 % 40 - 70 % [facility] Oxyhemoglobin (BldA) [Mass fraction] 45.9 % No established reference range [facility] pH (BldV) 7.31 [pH] Low [facility] Potassium [Moles/Vol] 3.9 mmol/L 3.5 - 5.1 mmol/L [facility] Sodium [Moles/Vol] 141 mmol/L 135 - 145 mmol/L [facility] Type of Oxygen saturation device Unknown [facility] BMPon 05-28-2020 Anion gap [Moles/Vol] 15 mmol/L 10 - 2 0 mmol/L [facility] Calcium [Mass/Vol] 9.4 mg/dL 8.4 - 10. 2 mg/dL [facility] Chloride [Moles/Vol] 100 mmol/L 98 - 10 8 mmol/L [facility] Creatinine [Mass/Vol] 0.74 mg/dL 0.50 - 1.30 [facility] GFR/1.73 sq M predicted among non-blacks MDRD (S/P/Bld) [Vol rate/Area] The eGFR should be used for monitoring renal function only and not for medication dosing. [facility] GFR/1.73 sq M.predicted CKD-EPI (S/P/Bld) [Vol rate/Area] 100 >=60 mL/min/1.73 m2 [facility] Glucose [Mass/Vol] 134 mg/dL High 65 - 99 mg/dL [facility] HCO3 [Moles/Vol] 26 mmol/L 21 - 32 mmol/L [facility] Potassium [Moles/Vol] 4.2 mmol/L 3.5 - 5.1 mmol/L [facility] Comment on above: Specimen slightly he molyzed Sodium [Moles/Vol] 137 mmol/L 135 - 145 mmol/L [facility] Urea nitrogen [Mass/Vol] 12 mg/dL 8 - 25 mg/dL [facility] Urea nitrogen/Creatinine [Mass ratio] 16.2 mg/mg [facility] CBC WITH AUTO DIFFERENTIALon 05-28-2020 Basophils (Bld) [#/Vol] 0.11 10*3/uL [facility] Basophils/100 WBC (Bld) 1.4 % [facility] Eosinophils (Bld) [#/Vol] 1.13 10*3/uL High [facility] Eosinophils/100 WBC (Bld) 14.6 % [facility] Erythrocyte distribution width (RBC) [Entitic vol] 13.7 % 11.6 - 14.8 % [facility] Hematocrit (Bld) [Volume fraction] 48.2 % 41 - 53 % [facility] Hemoglobin (Bld) [Mass/Vol] 15.3 g/dL 13.5 - 17.5 g/dL [facility] Immature granulocytes (Bld) [#/Vol] 0.01 10*3/uL [facility] Immature granulocytes/100 WBC (Bld) 0.10 % [facility] Comment on above: The IG parameter is the percentage of metamyelocytes, myelocytes and promyelocytes. An immature granulocyte count (IG) of 1% or more suggests the possibility of infection, an IG count of 3% is very likely related to an infection. Lymphocytes (Bld) [#/Vol] 2.08 10*3/uL [facility] Lymphocytes/100 WBC (Bld) 26.8 % [facility] MCH (RBC) [Entitic mass] 30.8 pg 26 - 34 pg [facility] MCHC (RBC) [Mass/Vol] 31.7 g/dL 31 - 37 g/dL [facility] MCV (RBC) [Entitic vol] 97.0 fL 80 - 100 fL [facility] Monocytes (Bld) [#/Vol] 0.68 10*3/uL [facility] Monocytes/100 WBC (Bld) 8.8 % [facility] Neutrophils (Bld) [#/Vol] 3.75 10*3/uL [facility] Neutrophils/100 WBC (Bld) 48.3 % [facility] Nucleated RBC (Bld) [#/Vol] 0.00 10*3/uL [facility] Nucleated RBC/100 WBC (Bld) [Ratio] 0.0 % [facility] Platelet mean volume (Bld) [Entitic vol] 9.0 fL Low 9.4 - 12.4 fL [facility] Platelets (Bld) [#/Vol] 281 10*3/uL [facility] RBC (Bld) [#/Vol] 4.97 10*6/uL [facility] WBC (Bld) [#/Vol] 7.76 10*3/uL [facility] Hepatic Function Panel (LFT) on 05-28-2020 Albumin [Mass/Vol] 3.9 g/dL 3.2 - 5.2 g/dL [facility] ALP [Catalytic activity/Vol] 88 U/L 40 - 150 U/L [facility] ALT [Catalytic activity/Vol] 13 U/L 0 - 40 U/L [facility] AST [Catalytic activity/Vol] 24 U/L 0 - 45 U/L [facility] Bilirubin [Mass/Vol] 0.4 mg/dL 0 - 1.3 mg/dL [facility] Bilirubin.conjugated [Mass/Vol] mg/dL 0 - 0.4 mg/dL [facility] Protein [Mass/Vol] 7.4 g/dL 6 - 8 g/dL [facility] Lactic Acid, Plasmaon 2019 Interpretation and review of laboratory results Normal [facility] Lactate [Moles/Vol] 1.2 mmol/L 0.6 - 2 mmol/L [facility] NT Pro BNPon 05-28-2020 Natriuretic peptide.B prohormone N-Terminal [Mass/Vol] <50 0 - 300 pg/mL [facility] Pride Study Cut-offs Rule In: < /= 50 Years >450 pg/mL 51 Years - 75 Years >900 pg/mL 76 Years - 99 Years >1800 pg/mL Rule Out: All patients <300 pg/mL [facility] Otheron 05-28-2020 Extra Tube Hold for add-ons. [facility] Comment on above: Auto resulted. Interpretation and review of laboratory results Normal [facility] Interpretation and review of laboratory results Abnormal [facility] TSH with Reflex Free T4on TSH Qn 1.16 m[IU]/L [facility] XR Chest 1 Viewon 05-28-2020 EXAMINATION: ONE XRA Y VIEW OF THE CHEST 05/28/2020 1:45 pm COMPARISON: 04/16/2020 HISTORY: ORDERING SYSTEM PROVIDED HISTORY: SOB, h/o COPD, PNA, recent COVID (dx 04/23/20, then resolved); TECHNOLOGIST PROVIDED HISTORY: Illness/Other Acuity: Unknown Reason for Exam: SOB, h/o COPD, PNA, recent COVID (dx 04/23/20, then resolved) Type of Encounter: Initial Additional signs and symptoms: unk FINDINGS: Cardiomediastinal silhouette is stable. Improved bilateral airspace opacities. No pleural effusion or pneumothorax. No gross bony abnormality. [facility] Improved bilateral airspace opacities. Workstation ID: [id number] [facility] Interface, Rad In Juliocesar souza Speechq - 05/28/2020 1:56 PM EST EXAMINATION: ONE XRAY VIEW OF THE CHEST 05/28/2020 1:45 pm COMPARISON: 04/16/2020 HISTORY: ORDERING SYSTEM PROVIDED HISTORY: SOB, h/o COPD, PNA, recent COVID (dx 04/23/20, then resolved); TECHNOLOGIST PROVIDED HISTORY: Illness/Other Acuity: Unknown Reason for Exam: SOB, h/o COPD, PNA, recent COVID (dx 04/23/20, then resolved) Type of Encounter: Initial Additional signs and symptoms: unk FINDINGS: Cardiomediastinal silhouette is stable. Improved bilateral airspace opacities. No pleural effusion or pneumothorax. No gross bony abnormality. IMPRESSION: Improved bilateral airspace opacities. Workstation ID: [id number] [facility] Comprehensive Metabolic Pane samuel 04-18-2020 Albumin [Mass/Vol] 3.3 g/dL 3.2 - 5.2 g/dL [facility] ALP [Catalytic activity/Vol] 93 U/L 40 - 150 U/L [facility] ALT [Catalytic activity/Vol] 34 U/L 0 - 40 U/L [facility] Anion gap [Moles/Vol] 15 mmol/L 10 - 2 0 mmol/L [facility] AST [Catalytic activity/Vol] 22 U/L 0 - 45 U/L [facility] Bilirubin [Mass/Vol] 0.2 mg/dL 0 - 1.3 mg/dL [facility] Calcium [Mass/Vol] 9.2 mg/dL 8.4 - 10. 2 mg/dL [facility] Chloride [Moles/Vol] 99 mmol/L 98 - 10 8 mmol/L [facility] Creatinine [Mass/Vol] 0.62 mg/dL 0.50 - 1.30 [facility] GFR/1.73 sq M predicted among non-blacks MDRD (S/P/Bld) [Vol rate/Area] The eGFR should be used for monitoring renal function only and not for medication dosing. [facility] GFR/1.73 sq M.predicted CKD-EPI (S/P/Bld) [Vol rate/Area] 109 >=60 mL/min/1.73 m2 [facility] Glucose [Mass/Vol] 134 mg/dL High 65 - 99 mg/dL [facility] HCO3 [Moles/Vol] 29 mmol/L 21 - 32 mmol/L [facility] Interpretation and review of laboratory results Abnormal [facility] Potassium [Moles/Vol] 3.6 mmol/L 3.5 - 5.1 mmol/L [facility] Protein [Mass/Vol] 6.9 g/dL 6 - 8 g/dL [facility] Sodium [Moles/Vol] 139 mmol/L 135 - 145 mmol/L [facility] Urea nitrogen [Mass/Vol] 12 mg/dL 8 - 25 mg/dL [facility] Urea nitrogen/Creatinine [Mass ratio] 19.4 mg/mg [facility] Imm/Pathon 04-18-2020 Bacteria identified Cx Nom (Bld) [facility] Erythrocyte distribution width (RBC) [Entitic vol] 13.4 % 11.6 - 14.8 % [facility] Hematocrit (Bld) [Volume fraction] 37.1 % Low 41 - 53 % [facility] Hemoglobin (Bld) [Mass/Vol] 11.8 g/dL Low 13.5 - 17.5 g/dL [facility] Interpretation and review of laboratory results Abnormal [facility] MCH (RBC) [Entitic mass] 31.6 pg 26 - 34 pg [facility] MCHC (RBC) [Mass/Vol] 31.8 g/dL 31 - 37 g/dL [facility] MCV (RBC) [Entitic vol] 99.5 fL 80 - 100 fL [facility] Nucleated RBC (Bld) [#/Vol] 0.00 10*3/uL [facility] Nucleated RBC/100 WBC (Bld) [Ratio] 0.0 % [facility] Platelet mean volume (Bld) [Entitic vol] 9.0 fL Low 9.4 - 12.4 fL [facility] Platelets (Bld) [#/Vol] 289 10*3/uL [facility] RBC (Bld) [#/Vol] 3.73 10*6/uL Low [facility] WBC (Bld) [#/Vol] 12.36 10*3/uL [facility] CBCon 04-16-2020 Erythrocyte distribution width (RBC) [Entitic vol] 13.1 % 11.6 - 14.8 % [facility] Hematocrit (Bld) [Volume fraction] 35.1 % Low 41 - 53 % [facility] Hemoglobin (Bld) [Mass/Vol] 11.1 g/dL Low 13.5 - 17.5 g/dL [facility] Interpretation and review of laboratory results Abnormal [facility] MCH (RBC) [Entitic mass] 31.3 pg 26 - 34 pg [facility] MCHC (RBC) [Mass/Vol] 31.6 g/dL 31 - 37 g/dL [facility] MCV (RBC) [Entitic vol] 98.9 fL 80 - 100 fL [facility] Nucleated RBC (Bld) [#/Vol] 0.00 10*3/uL [facility] Nucleated RBC/100 WBC (Bld) [Ratio] 0.0 % [facility] Platelet mean volume (Bld) [Entitic vol] 9.4 fL 9.4 - 12.4 fL [facility] Platelets (Bld) [#/Vol] 280 10*3/uL [facility] RBC (Bld) [#/Vol] 3.55 10*6/uL Low [facility] WBC (Bld) [#/Vol] 16.93 10*3/uL High [facility] ECG 12-LEADon 04-16-2020 Atrial Rate 75 BPM [facility] P [place] 67 degrees [facility] P-R Interval 144 ms [facility] Q-T Interval 376 ms [facility] QRS Duration 104 ms [facility] QTC Calculation (Bezet) 419 ms [facility] R [place] 65 degrees [facility] T [place] 63 degrees [facility] Ventricular Rate 75 BPM [facility] Normal sinus rhythm Normal ECG Confirmed by Flores Duong ([id number]) on 04/16/2020 10:47:28 AM [facility] Atrial Rate 112 BPM [facility] P [place] 70 degrees [facility] P-R Interval 130 ms [facility] Q-T Interval 318 ms [facility] QRS Duration 82 ms [facility] QTC Calculation (Bezet) 434 ms [facility] R [place] 39 degrees [facility] T [place] 68 degrees [facility] Ventricular Rate 112 BPM [facility] Sinus tachycardia Otherwise normal ECG When compared with ECG of 13-APR-2020 16:42, (unconfirmed) No significant change was found Confirmed by Physician, ED ([id number]), photo editor CARMEN FLEMING ([id number]) on 04/16/2020 10:32:32 AM [facility] Atrial Rate 114 BPM [facility] Atrial Rate 113 BPM [facility] P-R Interval 136 ms [facility] P-R Interval 134 ms [facility] Q-T Interval 292 ms [facility] Q-T Interval 308 ms [facility] QRS Duration 90 ms [facility] QRS Duration 86 ms [facility] QTC Calculation (Bezet) 424 ms [facility] QTC Calculation (Bezet) 400 ms [facility] R [place] 57 degrees [facility] R [place] 63 degrees [facility] Ventricular Rate 114 BPM [facility] Ventricular Rate 113 BPM [facility] Sinus tachycardia Otherwise normal ECG When compared with ECG of 13-APR-2020 16:28, (unconfirmed) No significant change was found Confirmed by Physician, ED ([id number]), photo editor CARMEN FLEMING ([id number]) on 04/16/2020 10:32:31 AM [facility] Sinus tachycardia Otherwise normal ECG When compared with ECG of 11-APR-2020 20:05, No significant change was found Confirmed by Physician, ED ([id number]), photo editor CARMEN FLEMING ([id number]) on 04/16/2020 10:32:31 AM [facility] Otheron 04-16-2020 P [place] 76 degrees [facility] T [place] 74 degrees [facility] XR Chest 1 Viewon 04-16-2020 Persistent multi lob ar pneumonia, not significantly changed. Continued follow-up is recommended to ensure resolution. Workstation ID: [id number] [facility] EXAMINATION: ONE XRA Y VIEW OF THE CHEST 04/16/2020 6:29 am COMPARISON: 04/13/2020 HISTORY: ORDERING SYSTEM PROVIDED HISTORY: pna/effusion; TECHNOLOGIST PROVIDED HISTORY: Illness/Other Acuity: Acute Reason for Exam: pna/effusion Type of Encounter: Initial Additional signs and symptoms: history of COPD, Asthma, TIA, Thoracic aortic aneurysm, Hypertension, Hyperlipidemia, PUD, Polysubstance use, Tobacco abuse, presented with multifocal pneumonia. ORDERING SYSTEM PROVIDED DIAGNOSIS CODES: R09.02 Hypoxia R11.2 Non-intractable vomiting with nausea, unspecified vomiting type R07.9 Chest pain, unspecified type E87.6 Hypokalemia J18.9 Pneumonia due to infectious organism, unspecified laterality, unspecified part of lung J18.9 Multifocal pneumonia A41.9 Sepsis, due to unspecified organism, unspecified whether acute organ dysfunction present ([facility]) J96.01 Acute respiratory failure with hypoxia ([facility]) J44.1 COPD exacerbation ([facility]) R07.89 Chest pain, atypical R11.2 Nausea and vomiting, intractability of vomiting not specified, unspecified vomiting type FINDINGS: The mediastinal and cardiac contours are stable. There is persistent multifocal airspace consolidation within the lower lobes, right greater than left. There is no pleural effusion or pneumothorax identified. Emphysematous changes are present within the upper lobes. [facility], Rad In Fu ji Speechq - 04/16/2020 7:36 AM EST EXAMINATION: ONE XRAY VIEW OF THE CHEST 04/16/2020 6:29 am COMPARISON: 04/13/2020 HISTORY: ORDERING SYSTEM PROVIDED HISTORY: pna/effusion; TECHNOLOGIST PROVIDED HISTORY: Illness/Other Acuity: Acute Reason for Exam: pna/effusion Type of Encounter: Initial Additional signs and symptoms: history of COPD, Asthma, TIA, Thoracic aortic aneurysm, Hypertension, Hyperlipidemia, PUD, Polysubstance use, Tobacco abuse, presented with multifocal pneumonia. ORDERING SYSTEM PROVIDED DIAGNOSIS CODES: R09.02 Hypoxia R11.2 Non-intractable vomiting with nausea, unspecified vomiting type R07.9 Chest pain, unspecified type E87.6 Hypokalemia J18.9 Pneumonia due to infectious organism, unspecified laterality, unspecified part of lung J18.9 Multifocal pneumonia A41.9 Sepsis, due to unspecified organism, unspecified whether acute organ dysfunction present ([facility]) J96.01 Acute respiratory failure with hypoxia ([facility]) J44.1 COPD exacerbation ([facility]) R07.89 Chest pain, atypical R11.2 Nausea and vomiting, intractability of vomiting not specified, unspecified vomiting type FINDINGS: The mediastinal and cardiac contours are stable. There is persistent multifocal airspace consolidation within the lower lobes, right greater than left. There is no pleural effusion or pneumothorax identified. Emphysematous changes are present within the upper lobes. IMPRESSION: Persistent multi lobar pneumonia, not significantly changed. Continued follow-up is recommended to ensure resolution. Workstation ID: [id number] [facility] CBCon 04-15-2020 Erythrocyte distribution width (RBC) [Entitic vol] 13.0 % 11.6 - 14.8 % [facility] Hematocrit (Bld) [Volume fraction] 35.4 % Low 41 - 53 % [facility] Hemoglobin (Bld) [Mass/Vol] 11.5 g/dL Low 13.5 - 17.5 g/dL [facility] Interpretation and review of laboratory results Abnormal [facility] MCH (RBC) [Entitic mass] 31.9 pg 26 - 34 pg [facility] MCHC (RBC) [Mass/Vol] 32.5 g/dL 31 - 37 g/dL [facility] MCV (RBC) [Entitic vol] 98.3 fL 80 - 100 fL [facility] Nucleated RBC (Bld) [#/Vol] 0.00 10*3/uL [facility] Nucleated RBC/100 WBC (Bld) [Ratio] 0.0 % [facility] Platelet mean volume (Bld) [Entitic vol] 9.6 fL 9.4 - 12.4 fL [facility] Platelets (Bld) [#/Vol] 243 10*3/uL [facility] RBC (Bld) [#/Vol] 3.60 10*6/uL Low [facility] WBC (Bld) [#/Vol] 20.02 10*3/uL [facility] CBCon 04-14-2020 Erythrocyte distribution width (RBC) [Entitic vol] 13.3 % 11.6 - 14.8 % [facility] Hematocrit (Bld) [Volume fraction] 38.8 % Low 41 - 53 % [facility] Hemoglobin (Bld) [Mass/Vol] 12.3 g/dL Low 13.5 - 17.5 g/dL [facility] Interpretation and review of laboratory results Abnormal [facility] MCH (RBC) [Entitic mass] 31.6 pg 26 - 34 pg [facility] MCHC (RBC) [Mass/Vol] 31.7 g/dL 31 - 37 g/dL [facility] MCV (RBC) [Entitic vol] 99.7 fL 80 - 100 fL [facility] Nucleated RBC (Bld) [#/Vol] 0.00 10*3/uL [facility] Nucleated RBC/100 WBC (Bld) [Ratio] 0.0 % [facility] Platelet mean volume (Bld) [Entitic vol] 9.4 fL 9.4 - 12.4 fL [facility] Platelets (Bld) [#/Vol] 243 10*3/uL [facility] RBC (Bld) [#/Vol] 3.89 10*6/uL Low [facility] WBC (Bld) [#/Vol] 13.92 10*3/uL [facility] CTA Pulm Art and CT Abd Pelv is with IV contraston 04-14-2020 EXAMINATION: CTA OF THE CHEST, CT ABDOMEN AND PELVIS WITH CONTRAST 04/13/2020 TECHNIQUE: CTA of the chest and CT of the abdomen and pelvis was performed after the administration of intravenous contrast. Multiplanar reformatted images are provided for review. MIP images are provided for review. Dose modulation, iterative reconstruction, and/or weight based adjustment of the mA/kV was utilized to reduce the radiation dose to as low as reasonably achievable. COMPARISON: Chest radiograph 04/13/2020 HISTORY: ORDERING SYSTEM PROVIDED HISTORY: Nausea/vomiting; Abdominal pain, acute, nonlocalized; sob abd pain; TECHNOLOGIST PROVIDED HISTORY: Illness/Other Acuity: Acute Reason for Exam: sob abd pain nausea Type of Encounter: Initial Additional signs and symptoms: copd peptic ulcer ORDERING SYSTEM PROVIDED DIAGNOSIS CODES: R09.02 Hypoxia R11.2 Non-intractable vomiting with nausea, unspecified vomiting type R07.9 Chest pain, unspecified type E87.6 Hypokalemia J18.9 Pneumonia due to infectious organism, unspecified laterality, unspecified part of lung FINDINGS: CTA CHEST: Pulmonary Arteries: Pulmonary arteries are adequately opacified for evaluation. Respiratory motion limits evaluation to the proximal segmental level. No evidence of intraluminal filling defect to suggest pulmonary embolism. Main pulmonary artery is normal in caliber. Mediastinum: Mediastinal lymphadenopathy. Normal caliber thoracic aorta without evidence of aneurysm or dissection. Normal heart size. Small volume pericardial fluid is within physiologic normal limits. Unremarkable esophagus and thyroid. Lungs/pleura: No pneumothorax or right pleural effusion. Trace left pleural effusion. Multifocal consolidative airspace disease within the right upper lobe and bilateral lower lobes. Moderate to advanced centrilobular emphysema. Central airways are clear secretions. Soft Tissues/Bones: No acute bone or soft tissue abnormality. CT ABDOMEN AND PELVIS: ABDOMEN Liver: Normal liver size, contour and parenchymal attenuation. Gallbladder: Normal. Biliary: No intra or extrahepatic bile duct dilatation. Pancreas: Normal. Spleen: Normal. Adrenals: Normal. Kidneys: Kidneys are symmetric in size and parenchymal enhancement. No hydronephrosis or nephrolithiasis. GI Tract: Normal distal esophagus, stomach and duodenal sweep. No apparent bowel wall thickening or obstruction. Normal appendix. Peritoneum/Retroperitoneu m: No enlarged lymph nodes, free air or free fluid. Vascular: Normal caliber abdominal aorta and IVC. Patent portal, superior mesenteric and splenic veins. PELVIS Genitourinary: Mildly distended thin-walled urinary bladder. Normal reproductive organs. Other: No free fluid. No enlarged lymph nodes. MUSCULOSKELETAL Bones and Soft Tissues: No acute soft tissue or osseous abnormality. Thoracolumbar spondylosis. Moderate canal and mild foraminal narrowing at L4-L5. [facility] Negative for acute pulmonary embolism. Respiratory motion limits evaluation to the proximal segmental level. Multifocal pneumonia with trace left parapneumonic effusion. No acute abdominopelvic findings. RECOMMENDATIONS: Follow-up PA and lateral chest radiographs in 8 weeks. Workstation ID: [id number] [facility] Interface, Rad In Fu ji Speechq - 04/14/2020 1:01 AM EST EXAMINATION: CTA OF THE CHEST, CT ABDOMEN AND PELVIS WITH CONTRAST 04/13/2020 TECHNIQUE: CTA of the chest and CT of the abdomen and pelvis was performed after the administration of intravenous contrast. Multiplanar reformatted images are provided for review. MIP images are provided for review. Dose modulation, iterative reconstruction, and/or weight based adjustment of the mA/kV was utilized to reduce the radiation dose to as low as reasonably achievable. COMPARISON: Chest radiograph 04/13/2020 HISTORY: ORDERING SYSTEM PROVIDED HISTORY: Nausea/vomiting; Abdominal pain, acute, nonlocalized; sob abd pain; TECHNOLOGIST PROVIDED HISTORY: Illness/Other Acuity: Acute Reason for Exam: sob abd pain nausea Type of Encounter: Initial Additional signs and symptoms: copd peptic ulcer ORDERING SYSTEM PROVIDED DIAGNOSIS CODES: R09.02 Hypoxia R11.2 Non-intractable vomiting with nausea, unspecified vomiting type R07.9 Chest pain, unspecified type E87.6 Hypokalemia J18.9 Pneumonia due to infectious organism, unspecified laterality, unspecified part of lung FINDINGS: CTA CHEST: Pulmonary Arteries: Pulmonary arteries are adequately opacified for evaluation. Respiratory motion limits evaluation to the proximal segmental level. No evidence of intraluminal filling defect to suggest pulmonary embolism. Main pulmonary artery is normal in caliber. Mediastinum: Mediastinal lymphadenopathy. Normal caliber thoracic aorta without evidence of aneurysm or dissection. Normal heart size. Small volume pericardial fluid is within physiologic normal limits. Unremarkable esophagus and thyroid. Lungs/pleura: No pneumothorax or right pleural effusion. Trace left pleural effusion. Multifocal consolidative airspace disease within the right upper lobe and bilateral lower lobes. Moderate to advanced centrilobular emphysema. Central airways are clear secretions. Soft Tissues/Bones: No acute bone or soft tissue abnormality. CT ABDOMEN AND PELVIS: ABDOMEN Liver: Normal liver size, contour and parenchymal attenuation. Gallbladder: Normal. Biliary: No intra or extrahepatic bile duct dilatation. Pancreas: Normal. Spleen: Normal. Adrenals: Normal. Kidneys: Kidneys are symmetric in size and parenchymal enhancement. No hydronephrosis or nephrolithiasis. GI Tract: Normal distal esophagus, stomach and duodenal sweep. No apparent bowel wall thickening or obstruction. Normal appendix. Peritoneum/Retroperitoneu m: No enlarged lymph nodes, free air or free fluid. Vascular: Normal caliber abdominal aorta and IVC. Patent portal, superior mesenteric and splenic veins. PELVIS Genitourinary: Mildly distended thin-walled urinary bladder. Normal reproductive organs. Other: No free fluid. No enlarged lymph nodes. MUSCULOSKELETAL Bones and Soft Tissues: No acute soft tissue or osseous abnormality. Thoracolumbar spondylosis. Moderate canal and mild foraminal narrowing at L4-L5. IMPRESSION: Negative for acute pulmonary embolism. Respiratory motion limits evaluation to the proximal segmental level. Multifocal pneumonia with trace left parapneumonic effusion. No acute abdominopelvic findings. RECOMMENDATIONS: Follow-up PA and lateral chest radiographs in 8 weeks. Workstation ID: [id number] [facility] Chem 7on 04-14-2020 Anion gap [Moles/Vol] 13 mmol/L 10 - 2 0 mmol/L [facility] Chloride [Moles/Vol] 102 mmol/L 98 - 10 8 mmol/L [facility] Creatinine [Mass/Vol] 0.87 mg/dL 0.50 - 1.30 [facility] GFR/1.73 sq M predicted among non-blacks MDRD (S/P/Bld) [Vol rate/Area] The eGFR should be used for monitoring renal function only and not for medication dosing. [facility] GFR/1.73 sq M.predicted CKD-EPI (S/P/Bld) [Vol rate/Area] 94 >=60 mL/min/1.73 m2 [facility] Glucose [Mass/Vol] 84 mg/dL 65 - 99 mg/dL [facility] [place] HCO3 [Moles/Vol] 26 mmol/L 21 - 32 mmol/L [facility] Interpretation and review of laboratory results Normal [facility] Potassium [Moles/Vol] 3.9 mmol/L 3.5 - 5.1 mmol/L [facility] Sodium [Moles/Vol] 137 mmol/L 135 - 145 mmol/L [facility] Urea nitrogen [Mass/Vol] 9 mg/dL 8 - 25 mg/dL [facility] Urea nitrogen/Creatinine [Mass ratio] 10.3 mg/mg [facility] EKGon 04-14-2020 Ordered by an unspec ified provider. [facility] Ordered by an unspec ified provider. [facility] LEGIONELLA ANTIGEN, URINEon 04-14-2020 Interpretation and review of laboratory results Normal [facility] L. pneumophila Ag Ql (U) Negative Negative for Legionella antigen [facility] Comment on above: COMMENT: Results may be affected if patient is on diuretics. INTERPRETATION OF RESULTS: Test detects Legionella pneumophilia serogroup 1 antigens in urine. Legionnaires disease cannot be ruled out since other serogroups and species may also cause disease. MRSA DNA Amplified Probeon 1 06-14-2019 Interpretation and review of laboratory results Normal [facility] MRSA DNA MOMO+probe Ql (Unsp spec) Negative MRSA NEGATIVE [facility] S.PNEUMONIAE URINE ANTIGENon 04-14-2020 Interpretation and review of laboratory results Normal [facility] S. pneumoniae Ag Ql (U) Negative Presumptive Negative for Pneumococcal pneumoniae [facility] Comment on above: A negative result rice ggests no current or recent pneumococcal infection. A negative result does not rule out Streptococcus pneumoniae infection since the antigen present in the sample may be below the detection limit of the test. TROPONINon 04-14-2020 Troponin T.cardiac [Mass/Vol] Normal [facility] Troponin T.cardiac [Mass/Vol] 8 ng/L <=22 [facility] BLOOD GAS, VBG WITH FULL WILLARD Jarod 04-13-2020 Base excess Calc (BldV) [Moles/Vol] 6.1 mmol/L High [facility] Calcium.ionized [Mass/Vol] 4.1 mg/dL Low 4.5 - 5.3 mg/dL [facility] Carboxyhemoglobin (BldA) [Mass fraction] 3.3 High <=1.5 % of total Hb [facility] Comment on above: Reference Ranges: [place]urban Non-smokers: <1.5% Smokers: 1.5-5.0% Heavy Smokers: 5.0-9.0% CO2 (BldV) [Partial pressure] 41.6 mm[Hg] [facility] Glucose [Mass/Vol] 102 mg/dL High 65 - 99 mg/dL [facility] HCO3 (Bld) [Moles/Vol] 30.0 mmol/L High 24 - 28 mmol/L [facility] Hematocrit (BldA) [Volume fraction] 42.4 % 41 - 53 % [facility] Hemoglobin (Bld) [Mass/Vol] 13.8 g/dL 13.5 - 18 g/dL [facility] Interpretation and review of laboratory results Abnormal [facility] Lactate [Moles/Vol] 1.1 mmol/L 0.6 - 2 mmol/L [facility] Methemoglobin (BldA) [Mass fraction] 0.7 % 0 - 2 % [facility] Oxygen (BldV) [Partial pressure] 68 mm[Hg] High [facility] Oxygen saturation in Venous blood 93.9 % High 40 - 70 % [facility] Oxyhemoglobin (BldA) [Mass fraction] 90.1 % No established reference range [facility] pH (BldV) 7.47 [pH] High [facility] Potassium [Moles/Vol] 3.3 mmol/L Low 3.5 - 5.1 mmol/L [facility] Sodium [Moles/Vol] 134 mmol/L Low 135 - 145 mmol/L [facility] CBC WITH AUTO DIFFERENTIALon 04-13-2020 Basophils (Bld) [#/Vol] 0.04 10*3/uL [facility] Basophils/100 WBC (Bld) 0.3 % [facility] Eosinophils (Bld) [#/Vol] 0.05 10*3/uL [facility] Eosinophils/100 WBC (Bld) 0.3 % [facility] Erythrocyte distribution width (RBC) [Entitic vol] 13.1 % 11.6 - 14.8 % [facility] Hematocrit (Bld) [Volume fraction] 43.6 % 41 - 53 % [facility] Hemoglobin (Bld) [Mass/Vol] 14.5 g/dL 13.5 - 17.5 g/dL [facility] Immature granulocytes (Bld) [#/Vol] 0.08 10*3/uL [facility] Immature granulocytes/100 WBC (Bld) 0.60 % [facility] Comment on above: The IG parameter is the percentage of metamyelocytes, myelocytes and promyelocytes. An immature granulocyte count (IG) of 1% or more suggests the possibility of infection, an IG count of 3% is very likely related to an infection. Interpretation and review of laboratory results Abnormal [facility] Lymphocytes (Bld) [#/Vol] 1.08 10*3/uL [facility] Lymphocytes/100 WBC (Bld) 7.4 % [facility] MCH (RBC) [Entitic mass] 31.9 pg 26 - 34 pg [facility] MCHC (RBC) [Mass/Vol] 33.3 g/dL 31 - 37 g/dL [facility] MCV (RBC) [Entitic vol] 96.0 fL 80 - 100 fL [facility] Monocytes (Bld) [#/Vol] 0.98 10*3/uL High [facility] Monocytes/100 WBC (Bld) 6.8 % [facility] Neutrophils (Bld) [#/Vol] 12.28 10*3/uL High [facility] Neutrophils/100 WBC (Bld) 84.6 % [facility] Nucleated RBC (Bld) [#/Vol] 0.00 10*3/uL [facility] Nucleated RBC/100 WBC (Bld) [Ratio] 0.0 % [facility] Platelet mean volume (Bld) [Entitic vol] 9.0 fL Low 9.4 - 12.4 fL [facility] Platelets (Bld) [#/Vol] 290 10*3/uL [facility] RBC (Bld) [#/Vol] 4.54 10*6/uL [facility] ealt WBC (Bld) [#/Vol] 14.51 10*3/uL [facility] COVID-19/Influenza A,B Molec ularon 04-13-2020 Influenza A Not Detected Not Detected [facility] Influenza B Not Detected Not Detected [facility] Interpretation and review of laboratory results Normal [facility] SARS-CoV-2 Not Detected Not Detected [facility] This test was perfor med under the FDA's Emergency Use Authorization (EUA). Testing was performed using the Dimit[employer] panda SARS-CoV-2 & Influenza A/B Nucleic Acid Test on the panda Nadja System. This test has not been approved for use in asymptomatic patients and its performance in this patient population has not been evaluated. Negative results do not rule out the presence of SARS-CoV-2, influenza A, and/or influenza B. Fact sheets for the EUA can be found at the following links: For Healthcare Providers: https://www.fda.gov/media /582123/download For Patients: https://www.fda.gov/media /825466/download [facility] Chem 7on 04-13-2020 Anion gap [Moles/Vol] 12 mmol/L 10 - 2 0 mmol/L [facility] Chloride [Moles/Vol] 95 mmol/L Low 98 - 10 8 mmol/L [facility] Creatinine [Mass/Vol] 0.80 mg/dL 0.50 - 1.30 [facility] GFR/1.73 sq M predicted among non-blacks MDRD (S/P/Bld) [Vol rate/Area] The eGFR should be used for monitoring renal function only and not for medication dosing. [facility] GFR/1.73 sq M.predicted CKD-EPI (S/P/Bld) [Vol rate/Area] 98 >=60 mL/min/1.73 m2 [facility] Glucose [Mass/Vol] 100 mg/dL High 65 - 99 mg/dL [facility] HCO3 [Moles/Vol] 28 mmol/L 21 - 32 mmol/L [facility] Interpretation and review of laboratory results Abnormal [facility] Potassium [Moles/Vol] 3.1 mmol/L Low 3.5 - 5.1 mmol/L [facility] Sodium [Moles/Vol] 132 mmol/L Low 135 - 145 mmol/L [facility] Urea nitrogen [Mass/Vol] 8 mg/dL 8 - 25 mg/dL [facility] Urea nitrogen/Creatinine [Mass ratio] 10.0 mg/mg [facility] DRUGS OF ABUSE SCREEN, URINE on 04-13-2020 Amphetamines Ql (U) None Detected None Detected [facility] Comment on above: Urine Amphetamine Cu toff: < 1000 ng/mL = None Detected Barbiturates Screen Ql (U) None Detected None Detected [facility] Comment on above: Urine Barbiturates C utoff: < 200 ng/mL = None Detected Benzodiazepines Ql (U) None Detected None Detected [facility] Comment on above: Urine Benzodiazepine Cutoff: < 200 ng/mL = None Detected Buprenorphine Ql (U) Positive Abnormal None [facility]ed [facility] Comment on above: Urine Buprenorphine Cutoff: < 5 ng/mL = None Detected Cannabinoids Screen Ql (U) None Detected None Detected [facility] Comment on above: Urine Cannabinoids C utoff: < 50 ng/mL = None Detected Cocaine Ql (U) Positive Abnormal None Detected [facility] Comment on above: Urine Cocaine Cutoff : < 300 ng/mL = None Detected Fentanyl+Norfentanyl Screen Ql (U) Positive Abnormal None Detected [facility] Comment on above: Urine Fentanyl Cutof f: < 1 ng/mL = None Detected Interpretation and review of laboratory results Abnormal [facility] Methadone Screen Ql (U) None Detected None Detected [facility] Comment on above: Urine Methadone Cuto ff: < 300 ng/mL = None Detected Opiates Screen Ql (U) Positive Abnormal None Detected [facility] Comment on above: Urine Opiates Cutoff : < 300 ng/mL = None Detected Oxycodone Ql (U) None Detected None Detected [facility] Comment on above: Urine Oxycodone Cuto ff: < 100 ng/mL = None Detected Screen results shoul d be used for treatment purposes only. Specimen will be kept for 2 weeks, if the sample is adequate. Confirmation testing can be initiated by calling the lab within 2 weeks. [facility] ECG 12-LEADon 04-13-2020 Armando Leal MD 04/13/2020 5:12 PM ECG 12 Lead Date/Time: 04/13/2020 5:12 PM Performed by: Armando Leal MD Authorized by: Armando Leal MD Interpreted by ED attending physician Rhythm: sinus rhythm and sinus tachycardia BPM: 114 normal DC interval normal QRS interval normal QT interval Clinical impression: sinus tachycardia [facility] Hepatic Function Panel (LFT) on 04-13-2020 Albumin [Mass/Vol] 3.6 g/dL 3.2 - 5.2 g/dL [facility] ALP [Catalytic activity/Vol] 76 U/L 40 - 150 U/L [facility] ALT [Catalytic activity/Vol] 26 U/L 0 - 40 U/L [facility] AST [Catalytic activity/Vol] 31 U/L 0 - 45 U/L [facility] Bilirubin [Mass/Vol] 0.5 mg/dL 0 - 1.3 mg/dL [facility] Bilirubin.conjugated [Mass/Vol] 0.2 mg/dL 0 - 0.4 mg/dL [facility] Protein [Mass/Vol] 6.3 g/dL 6 - 8 g/dL [facility] L[facility] Acid, Plasmaon 2019 Interpretation and review of laboratory results Normal [facility] Lactate [Moles/Vol] 1.3 mmol/L 0.6 - 2 mmol/L [facility] Lipaseon 04-13-2020 Lipase [Catalytic activity/Vol] 27 U/L 15 - 65 U/L [facility] NT Pro BNPon 04-13-2020 Interpretation and review of laboratory results Abnormal [facility] Natriuretic peptide.B prohormone N-Terminal [Mass/Vol] 739 pg/mL High 0 - 300 pg/mL [facility] Pride Study Cut-offs Rule In: < /= 50 Years >450 pg/mL 51 Years - 75 Years >900 pg/mL 76 Years - 99 Years >1800 pg/mL Rule Out: All patients <300 pg/mL [facility] Otheron 04-13-2020 Extra Tube Hold for add-ons. [facility] Comment on above: Auto resulted. Interpretation and review of laboratory results Normal [facility] PT/INRon 04-13-2020 INR Coag (PPP) [Relative time] 1.1 {INR} [facility] Interpretation and review of laboratory results Normal [facility] PT Coag (PPP) [Time] 13.9 s [facility] During the induction phase of oral anticoagulation, the INR may not reflect the anticoagulation status of the patient. Therapeutic ranges for INR's are: Most clinical situations: INR 2.0-3.0 Mechanical Prosthetic Valve: INR 2.5-3.5 Critical: INR >5.0 [facility] TROPONINon 04-13-2020 Troponin T.cardiac [Mass/Vol] 16 ng/L <=22 [facility] Troponin T.cardiac [Mass/Vol] No biomarker evidence of cardiac injury. [facility] Troponin T.cardiac [Mass/Vol] 1 ng/L < = -/+ 7 change [facility] Troponin T.cardiac [Mass/Vol] 15 ng/L <=22 [facility] Troponin T.cardiac [Mass/Vol] Normal [facility] TSH with Reflex Free T4on Interpretation and review of laboratory results Normal [facility] TSH Qn 0.67 m[IU]/L [facility] URINALYSISon 04-13-2020 Bacteria Auto Ql (U) None Seen None Se en /hpf [facility] Bilirubin Ql (U) Negative Negative [facility] th Clarity Refractometry automated (U) Clear Clear [facility] Color (U) Yellow Colorless, Yellow [facility] Glucose Auto test strip (U) [Mass/Vol] Negative Negative mg/dL [facility] Hemoglobin Auto test strip Ql (U) Negative Negative [facility] Interpretation and review of laboratory results Abnormal [facility] Ketones (U) [Mass/Vol] Negative Negative mg/dL [facility] Leukocyte esterase Auto test strip Ql (U) Negative Negative [facility] Mucus Auto (Urine sed) [#/Area] Rare None Seen, Rare /lpf [facility] Nitrite Auto test strip Ql (U) Negative Negative [facility] pH (U) 6.0 [pH] [facility] Protein (U) [Mass/Vol] Negative Negative mg/dL [facility] Specific gravity (U) [Rel density] 1.020 [facility] Urobilinogen (U) [Mass/Vol] 2.0 mg/dL Abnormal <2.0 [facility] WBC Auto (Urine sed) [#/Area] 1 [facility] Microscopic examinat ion is performed on all urinalysis samples and only positive findings are reported. The test for blood on the chemical analytic portion of urinalysis may also be positive due to hemoglobinuria and myoglobinuria and if red blood cells are present they are quantified by microscopic examination. [facility] XR Chest 1 Viewon 04-13-2020 Interface, Rad In Fu ji Speechq - 04/13/2020 6:01 PM EST EXAMINATION: ONE XRAY VIEW OF THE CHEST 04/13/2020 5:30 pm COMPARISON: April 11, 2020 HISTORY: ORDERING SYSTEM PROVIDED HISTORY: shortness of breath; TECHNOLOGIST PROVIDED HISTORY: Illness/Other Acuity: Acute Reason for Exam: shortness of breath Type of Encounter: Subsequent/Follow-up Additional signs and symptoms: none FINDINGS: Interval development of patchy airspace disease is seen within the right mid to lower lung zone, and left perihilar region, consistent with pneumonia. No pneumothorax is present. Heart size mediastinal contours appear normal. Vascular markings are distinct. Osseous structures are stable. IMPRESSION: 1. New bilateral airspace disease. Differential considerations would include multifocal bacterial, or atypical/viral pneumonia. Workstation ID: [id number] [facility] 1. New bilateral air space disease. Differential considerations would include multifocal bacterial, or atypical/viral pneumonia. Workstation ID: [id number] [facility] EXAMINATION: ONE XRA Y VIEW OF THE CHEST 04/13/2020 5:30 pm COMPARISON: April 11, 2020 HISTORY: ORDERING SYSTEM PROVIDED HISTORY: shortness of breath; TECHNOLOGIST PROVIDED HISTORY: Illness/Other Acuity: Acute Reason for Exam: shortness of breath Type of Encounter: Subsequent/Follow-up Additional signs and symptoms: none FINDINGS: Interval development of patchy airspace disease is seen within the right mid to lower lung zone, and left perihilar region, consistent with pneumonia. No pneumothorax is present. Heart size mediastinal contours appear normal. Vascular markings are distinct. Osseous structures are stable. [facility] Basic Metabolic Panelon 11-0 Anion gap [Moles/Vol] 14 mmol/L 10 - 2 0 mmol/L [facility] Calcium [Mass/Vol] 8.4 mg/dL 8.4 - 10. 2 mg/dL [facility] Chloride [Moles/Vol] 99 mmol/L 98 - 10 8 mmol/L [facility] Creatinine [Mass/Vol] 0.75 mg/dL 0.50 - 1.30 [facility] GFR/1.73 sq M predicted among non-blacks MDRD (S/P/Bld) [Vol rate/Area] The eGFR should be used for monitoring renal function only and not for medication dosing. [facility] GFR/1.73 sq M.predicted CKD-EPI (S/P/Bld) [Vol rate/Area] 100 >=60 mL/min/1.73 m2 [facility] Glucose [Mass/Vol] 172 mg/dL High 65 - 99 mg/dL [facility] HCO3 [Moles/Vol] 25 mmol/L 21 - 32 mmol/L [facility] Interpretation and review of laboratory results Abnormal [facility] Potassium [Moles/Vol] 3.7 mmol/L 3.5 - 5.1 mmol/L [facility] Sodium [Moles/Vol] 134 mmol/L Low 135 - 145 mmol/L [facility] Urea nitrogen [Mass/Vol] 10 mg/dL 8 - 25 mg/dL [facility] Urea nitrogen/Creatinine [Mass ratio] 13.3 mg/mg [facility] CBCon 04-12-2020 Erythrocyte distribution width (RBC) [Entitic vol] 12.9 % 11.6 - 14.8 % [facility] Hematocrit (Bld) [Volume fraction] 38.0 % Low 41 - 53 % [facility] Hemoglobin (Bld) [Mass/Vol] 12.5 g/dL Low 13.5 - 17.5 g/dL [facility] Interpretation and review of laboratory results Abnormal [facility] MCH (RBC) [Entitic mass] 32.1 pg 26 - 34 pg [facility] MCHC (RBC) [Mass/Vol] 32.9 g/dL 31 - 37 g/dL [facility] MCV (RBC) [Entitic vol] 97.4 fL 80 - 100 fL [facility] Nucleated RBC (Bld) [#/Vol] 0.00 10*3/uL [facility] Nucleated RBC/100 WBC (Bld) [Ratio] 0.0 % [facility] Platelet mean volume (Bld) [Entitic vol] 9.2 fL Low 9.4 - 12.4 fL [facility] Platelets (Bld) [#/Vol] 253 10*3/uL [facility] RBC (Bld) [#/Vol] 3.90 10*6/uL [facility] WBC (Bld) [#/Vol] 7.87 10*3/uL [facility] DRUGS OF ABUSE SCREEN, URINE on 04-12-2020 Amphetamines Ql (U) None Detected None Detected [facility] Comment on above: Urine Amphetamine Cu toff: < 1000 ng/mL = None Detected Barbiturates Screen Ql (U) None Detected None Detected [facility] Comment on above: Urine Barbiturates C utoff: < 200 ng/mL = None Detected Benzodiazepines Ql (U) None Detected None Detected [facility] Comment on above: Urine Benzodiazepine Cutoff: < 200 ng/mL = None Detected Buprenorphine Ql (U) Positive Abnormal None Detected [facility] Comment on above: Urine Buprenorphine Cutoff: < 5 ng/mL = None Detected Cannabinoids Screen Ql (U) None Detected None Detected [facility] Comment on above: Urine Cannabinoids C utoff: < 50 ng/mL = None Detected Cocaine Ql (U) Positive Abnormal None Detected [facility] Comment on above: Urine Cocaine Cutoff : < 300 ng/mL = None Detected Fentanyl+Norfentanyl Screen Ql (U) Positive Abnormal None Detected [facility] Comment on above: Urine Fentanyl Cutof f: < 1 ng/mL = None Detected Interpretation and review of laboratory results Abnormal [facility] Methadone Screen Ql (U) None Detected None Detected [facility] Comment on above: Urine Methadone Cuto ff: < 300 ng/mL = None Detected Opiates Screen Ql (U) None Detected None Detect ed [facility] Comment on above: Urine Opiates Cutoff : < 300 ng/mL = None Detected Oxycodone Ql (U) None Detected None Detected [facility] Comment on above: Urine Oxycodone Cuto ff: < 100 ng/mL = None Detected Screen results shoul d be used for treatment purposes only. Specimen will be kept for 2 weeks, if the sample is adequate. Confirmation testing can be initiated by calling the lab within 2 weeks. [facility] Magnesium Levelon 04-12-2020 Interpretation and review of laboratory results Normal [facility] Magnesium [Mass/Vol] 1.9 mg/dL 1.6 - 2 .4 mg/dL [facility] Phosphoruson 04-12-2020 Interpretation and review of laboratory results Abnormal [facility] Phosphate [Mass/Vol] 2.6 mg/dL Low 2.7 - 4 .5 mg/dL [facility] BLOOD GAS, VBG WITH FULL WILLARD Jarod 04-11-2020 Base excess Calc (BldV) [Moles/Vol] 4.6 mmol/L High [facility] Calcium.ionized [Mass/Vol] 4.4 mg/dL Low 4.5 - 5.3 mg/dL [facility] Carboxyhemoglobin (BldA) [Mass fraction] 3.7 High <=1.5 % of total Hb [facility] Comment on above: Reference Ranges: Suburb Non-smokers: <1.5% Smokers: 1.5-5.0% Heavy Smokers: 5.0-9.0% CO2 (BldV) [Partial pressure] 54.5 mm[Hg] High [facility] Glucose [Mass/Vol] 103 mg/dL High 65 - 99 mg/dL [facility] HCO3 (Bld) [Moles/Vol] 30.8 mmol/L High 24 - 28 mmol/L [facility] Hematocrit (BldA) [Volume fraction] 44.8 % 41 - 53 % [facility] Hemoglobin (Bld) [Mass/Vol] 14.6 g/dL 13.5 - 18 g/dL [facility] Interpretation and review of laboratory results Abnormal [facility] Lactate [Moles/Vol] 1.4 mmol/L 0.6 - 2 mmol/L [facility] Methemoglobin (BldA) [Mass fraction] 0.6 % 0 - 2 % [facility] Oxygen (BldV) [Partial pressure] 28 mm[Hg] [facility] Oxygen saturation in Venous blood 50.7 % 40 - 70 % [facility] Oxyhemoglobin (BldA) [Mass fraction] 48.5 % No established reference range [facility] pH (BldV) 7.37 [pH] [facility] Potassium [Moles/Vol] 3.5 mmol/L 3.5 - 5.1 mmol/L [facility] Sodium [Moles/Vol] 136 mmol/L 135 - 145 mmol/L [facility] 04-11-2020 Anion gap [Moles/Vol] 14 mmol/L 10 - 2 0 mmol/L [facility] Calcium [Mass/Vol] 9.0 mg/dL 8.4 - 10. 2 mg/dL [facility] Chloride [Moles/Vol] 97 mmol/L Low 98 - 10 8 mmol/L [facility] Creatinine [Mass/Vol] 0.86 mg/dL 0.50 - 1.30 [facility] GFR/1.73 sq M predicted among non-blacks MDRD (S/P/Bld) [Vol rate/Area] The eGFR should be used for monitoring renal function only and not for medication dosing. [facility] GFR/1.73 sq M.predicted CKD-EPI (S/P/Bld) [Vol rate/Area] 95 >=60 mL/min/1.73 m2 [facility] Glucose [Mass/Vol] 100 mg/dL High 65 - 99 mg/dL [facility] HCO3 [Moles/Vol] 30 mmol/L 21 - 32 mmol/L [facility] Interpretation and review of laboratory results Abnormal [facility] Potassium [Moles/Vol] 3.7 mmol/L 3.5 - 5.1 mmol/L [facility] Sodium [Moles/Vol] 137 mmol/L 135 - 145 mmol/L [facility] Urea nitrogen [Mass/Vol] 11 mg/dL 8 - 25 mg/dL [facility] Urea nitrogen/Creatinine [Mass ratio] 12.8 mg/mg [facility] CBC WITH AUTO DIFFERENTIALon 04-11-2020 Basophils (Bld) [#/Vol] 0.05 10*3/uL [facility] Basophils/100 WBC (Bld) 0.4 % [facility] Eosinophils (Bld) [#/Vol] 0.51 10*3/uL High [facility] Eosinophils/100 WBC (Bld) 3.6 % [facility] Erythrocyte distribution width (RBC) [Entitic vol] 12.9 % 11.6 - 14.8 % [facility] Hematocrit (Bld) [Volume fraction] 43.3 % 41 - 53 % [facility] Hemoglobin (Bld) [Mass/Vol] 14.3 g/dL 13.5 - 17.5 g/dL [facility] Immature granulocytes (Bld) [#/Vol] 0.04 10*3/uL [facility] Immature granulocytes/100 WBC (Bld) 0.30 % [facility] Comment on above: The IG parameter is the percentage of metamyelocytes, myelocytes and promyelocytes. An immature granulocyte count (IG) of 1% or more suggests the possibility of infection, an IG count of 3% is very likely related to an infection. Interpretation and review of laboratory results Abnormal [facility] Lymphocytes (Bld) [#/Vol] 1.24 10*3/uL [facility] Lymphocytes/100 WBC (Bld) 8.8 % [facility] MCH (RBC) [Entitic mass] 32.4 pg 26 - 34 pg [facility] MCHC (RBC) [Mass/Vol] 33.0 g/dL 31 - 37 g/dL [facility] MCV (RBC) [Entitic vol] 98.0 fL 80 - 100 fL [facility] Monocytes (Bld) [#/Vol] 1.04 10*3/uL High [facility] Monocytes/100 WBC (Bld) 7.4 % [facility] Neutrophils (Bld) [#/Vol] 11.22 10*3/uL High [facility] Neutrophils/100 WBC (Bld) 79.5 % [facility] Nucleated RBC (Bld) [#/Vol] 0.00 10*3/uL [facility] Nucleated RBC/100 WBC (Bld) [Ratio] 0.0 % [facility] Platelet mean volume (Bld) [Entitic vol] 9.6 fL 9.4 - 12.4 fL [facility] Platelets (Bld) [#/Vol] 296 10*3/uL [facility] RBC (Bld) [#/Vol] 4.42 10*6/uL Low [facility] ealth WBC (Bld) [#/Vol] 14.10 10*3/uL High [facility] COVID-19/Influenza A,B Molec ularon 04-11-2020 [facility] Not [facility]ed [facility]ed [facility] Interpretation and review of laboratory results Normal [facility] SARS-CoV-2 Not Detected Not Detected [facility] This test was perfor med under the FDA's Emergency Use Authorization (EUA). Testing was performed using the Dimitris panda SARS-CoV-2 & Influenza A/B Nucleic Acid Test on the panda Nadja System. This test has not been approved for use in asymptomatic patients and its performance in this patient population has not been evaluated. Negative results do not rule out the presence of SARS-CoV-2, influenza A, and/or influenza B. Fact sheets for the EUA can be found at the following links: For Healthcare Providers: https://www.fda.gov/media /468277/download For Patients: https://www.fda.gov/media /818899/download [facility] ECG 12-LEADon 04-11-2020 Maxime Liz MD 04/11/2020 9:56 PM EKG 12-lead Date/Time: 04/11/2020 9:56 PM Performed by: Maxime Liz MD Authorized by: Maxime Lzi MD Interpreted by ED attending physician Rhythm: sinus rhythm and sinus tachycardia BPM: 101 Conduction: conduction normal ST Segments: ST segments normal T Waves: T waves normal Other: no other findings Clinical impression: normal ECG and sinus tachycardia [facility] Otheron 04-11-2020 Extra Tube Hold for add-ons. [facility] Comment on above: Auto resulted. XR Chest 1 Viewon 04-11-2020 EXAMINATION: ONE XRA Y VIEW OF THE CHEST 04/11/2020 9:07 pm COMPARISON: March 28, 2020 HISTORY: ORDERING SYSTEM PROVIDED HISTORY: sob; TECHNOLOGIST PROVIDED HISTORY: Illness/Other Acuity: Acute Reason for Exam: sob, cough Type of Encounter: Initial Additional signs and symptoms: sob, cough FINDINGS: Adequate inspiration is noted. Asymmetric elevation right hemidiaphragm is noted, with a linear opacity again seen within the right lung base, consistent with scarring or chronic atelectasis. No focal area of consolidation or pneumothorax is present. Heart size and mediastinal contours are stable. Osseous structures appear normal. [facility] 1. Stable chest radiograph, without evidence of acute cardiopulmonary disease 2. Scar versus chronic atelectasis, right lung base Workstation ID: [id number] [facility] Interface, Rad In Fu ji Speechq - 04/11/2020 9:57 PM EST EXAMINATION: ONE XRAY VIEW OF THE CHEST 04/11/2020 9:07 pm COMPARISON: March 28, 2020 HISTORY: ORDERING SYSTEM PROVIDED HISTORY: sob; TECHNOLOGIST PROVIDED HISTORY: Illness/Other Acuity: Acute Reason for Exam: sob, cough Type of Encounter: Initial Additional signs and symptoms: sob, cough FINDINGS: Adequate inspiration is noted. Asymmetric elevation right hemidiaphragm is noted, with a linear opacity again seen within the right lung base, consistent with scarring or chronic atelectasis. No focal area of consolidation or pneumothorax is present. Heart size and mediastinal contours are stable. Osseous structures appear normal. IMPRESSION: 1. Stable chest radiograph, without evidence of acute cardiopulmonary disease 2. Scar versus chronic atelectasis, right lung base Workstation ID: [id number] [facility] XR CHEST AP/PA AND LATon 1. Emphysema. No superimposed acute pulmonary abnormality. Workstation ID: [id number] [facility] EXAMINATION: TWO XRA Y VIEWS OF THE CHEST 03/19/2020 4:07 pm COMPARISON: January 14, 2020 HISTORY: ORDERING SYSTEM PROVIDED HISTORY: COPD with acute exacerbation (HCC); TECHNOLOGIST PROVIDED HISTORY: Illness/Other Acuity: Acute Reason for Exam: COPD with acute exacerbation (HCC) Type of Encounter: Initial Additional signs and symptoms: COPD with acute exacerbation (HCC) ORDERING SYSTEM PROVIDED DIAGNOSIS CODES: J44.1 COPD with acute exacerbation (HCC) FINDINGS: Pulmonary vasculature is attenuated. Retrosternal clear space is enlarged. The cardiomediastinal silhouette is within normal range. Lungs are clear. There is no focal pulmonary consolidation, pleural effusion, pneumothorax, or evidence of airspace pulmonary edema. [facility], Qasim Buckley Fu ji Speechq - 03/19/2020 5:48 PM EDT EXAMINATION: TWO XRAY VIEWS OF THE CHEST 03/19/2020 4:07 pm COMPARISON: January 14, 2020 HISTORY: ORDERING SYSTEM PROVIDED HISTORY: COPD with acute exacerbation (HCC); TECHNOLOGIST PROVIDED HISTORY: Illness/Other Acuity: Acute Reason for Exam: COPD with acute exacerbation (HCC) Type of Encounter: Initial Additional signs and symptoms: COPD with acute exacerbation (HCC) ORDERING SYSTEM PROVIDED DIAGNOSIS CODES: J44.1 COPD with acute exacerbation (HCC) FINDINGS: Pulmonary vasculature is attenuated. Retrosternal clear space is enlarged. The cardiomediastinal silhouette is within normal range. Lungs are clear. There is no focal pulmonary consolidation, pleural effusion, pneumothorax, or evidence of airspace pulmonary edema. IMPRESSION: 1. Emphysema. No superimposed acute pulmonary abnormality. Workstation ID: [id number] [facility] BMPon 01-14-2020 Anion gap [Moles/Vol] 14 mmol/L 10 - 2 0 mmol/L [facility] Calcium [Mass/Vol] 8.8 mg/dL 8.4 - 10. 2 mg/dL [facility] Chloride [Moles/Vol] 107 mmol/L 98 - 10 8 mmol/L [facility] Creatinine [Mass/Vol] 0.98 mg/dL 0.50 - 1.30 [facility] GFR/1.73 sq M predicted among non-blacks MDRD (S/P/Bld) [Vol rate/Area] The eGFR should be used for monitoring renal function only and not for medication dosing. [facility] GFR/1.73 sq M.predicted CKD-EPI (S/P/Bld) [Vol rate/Area] 84 >=60 mL/min/1.73 m2 [facility] Glucose [Mass/Vol] 106 mg/dL High 65 - 99 mg/dL [facility] HCO3 [Moles/Vol] 27 mmol/L 21 - 32 mmol/L [facility] Interpretation and review of laboratory results Abnormal [facility] Potassium [Moles/Vol] 4.0 mmol/L 3.5 - 5.1 mmol/L [facility] Sodium [Moles/Vol] 144 mmol/L 135 - 145 mmol/L [facility] Urea nitrogen [Mass/Vol] 10 mg/dL 8 - 25 mg/dL [facility] Urea nitrogen/Creatinine [Mass ratio] 10.2 mg/mg [facility] CBC WITH AUTO DIFFERENTIALon 01-14-2020 Basophils (Bld) [#/Vol] 0.05 10*3/uL [facility] Basophils/100 WBC (Bld) 0.7 % [facility] Eosinophils (Bld) [#/Vol] 0.22 10*3/uL [facility] Eosinophils/100 WBC (Bld) 3.2 % [facility] Erythrocyte distribution width (RBC) [Entitic vol] 13.5 % 11.6 - 14.8 % [facility] Hematocrit (Bld) [Volume fraction] 45.8 % 41 - 53 % [facility] Hemoglobin (Bld) [Mass/Vol] 14.9 g/dL 13.5 - 17.5 g/dL [facility] Immature granulocytes (Bld) [#/Vol] 0.03 10*3/uL [facility] Immature granulocytes/100 WBC (Bld) 0.40 % [facility] Comment on above: The IG parameter is the percentage of metamyelocytes, myelocytes and promyelocytes. An immature granulocyte count (IG) of 1% or more suggests the possibility of infection, an IG count of 3% is very likely related to an infection. Interpretation and review of laboratory results Abnormal [facility] Lymphocytes (Bld) [#/Vol] 1.78 10*3/uL [facility] Lymphocytes/100 WBC (Bld) 25.8 % [facility] MCH (RBC) [Entitic mass] 32.4 pg 26 - 34 pg [facility] MCHC (RBC) [Mass/Vol] 32.5 g/dL 31 - 37 g/dL [facility] MCV (RBC) [Entitic vol] 99.6 fL 80 - 100 fL [facility] Monocytes (Bld) [#/Vol] 0.65 10*3/uL [facility] Monocytes/100 WBC (Bld) 9.4 % [facility] Neutrophils (Bld) [#/Vol] 4.16 10*3/uL [facility] Neutrophils/100 WBC (Bld) 60.5 % [facility] Nucleated RBC (Bld) [#/Vol] 0.00 10*3/uL [facility] Nucleated RBC/100 WBC (Bld) [Ratio] 0.0 % [facility] Platelet mean volume (Bld) [Entitic vol] 8.9 fL Low 9.4 - 12.4 fL [facility] Platelets (Bld) [#/Vol] 251 10*3/uL [facility] RBC (Bld) [#/Vol] 4.60 10*6/uL [facility] eah WBC (Bld) [#/Vol] 6.89 10*3/uL [facility] COVID-[facility], Molecularon 2019 Interpretation and review of laboratory results Normal [facility] SARS-CoV-2 Not Detected Not Detected [facility] Comment on above: This test was perfor med under the FDA's Emergency Use Authorization (EUA). Testing was performed using the Mirza ID NOW COVID-19 assay on the ID NOW platform. This test has not been approved for use in asymptomatic patients and its performance in this patient population has not been evaluated. Negative results do not rule out the presence of SARS-CoV-2/COVID-19. Fact sheets for the EUA can be found at the following links: For Healthcare Providers: https://www.fda.gov/media/516612/download For Patients: https://www.fda.gov/media/664450/download ECG 12-LEADon 01-14-2020 Teresa Anderson MD 01/13 12:03 PM ECG 12 Lead Date/Time: 01/14/2020 12:01 PM Performed by: Teresa Anderson MD Authorized by: Teresa Anderson MD Interpreted by ED attending physician Comparison: compared with previous ECG from 11/02/2019 Comparison to previous ECG: Prior T wave inversion in lead III and aVF are now reversed, Rhythm: sinus rhythm BPM: 80 ST Segments: ST segments normal T Waves: T waves normal DC Interval: 150 QRS Interval: 84 QT Interval: 412 Clinical impression: normal ECG Comments: There is a wandering baseline present in leads II, III and aVF aVL, likely due to patient movement. The remainder the patient's EKG remains unremarkable. [facility] EKGon 01-14-2020 Ordered by an unspec ified provider. [facility] Otheron 01-14-2020 Extra Tube Hold for add-ons. [facility] Comment on above: Auto resulted. TROPONINon 01-14-2020 Troponin T.cardiac [Mass/Vol] Normal [facility] Troponin T.cardiac [Mass/Vol] 11 ng/L <=22 [facility] XR Chest 1 Viewon 01-14-2020 1. Emphysema. No superimposed acute radiographic finding to account for patient's shortness of breath. Workstation ID: [id number] [facility] EXAMINATION: ONE XRA Y VIEW OF THE CHEST 01/14/2020 12:51 pm COMPARISON: December 29, 2019 HISTORY: ORDERING SYSTEM PROVIDED HISTORY: SOB and wheezing; TECHNOLOGIST PROVIDED HISTORY: Illness/Other Acuity: Acute Reason for Exam: SOB and wheezing, hx copd Type of Encounter: Initial Acute shortness of breath and wheezing. Initial encounter. FINDINGS: The cardiomediastinal silhouette is within normal range. Lungs are clear. There is no focal pulmonary consolidation, pleural effusion, pneumothorax, or evidence of airspace pulmonary edema. Pulmonary vasculature in the upper lobes is attenuated. [facility] Qasim Bahena Fu ji Speechq - 01/14/2020 1:12 PM EDT EXAMINATION: ONE XRAY VIEW OF THE CHEST 01/14/2020 12:51 pm COMPARISON: December 29, 2019 HISTORY: ORDERING SYSTEM PROVIDED HISTORY: SOB and wheezing; TECHNOLOGIST PROVIDED HISTORY: Illness/Other Acuity: Acute Reason for Exam: SOB and wheezing, hx copd Type of Encounter: Initial Acute shortness of breath and wheezing. Initial encounter. FINDINGS: The cardiomediastinal silhouette is within normal range. Lungs are clear. There is no focal pulmonary consolidation, pleural effusion, pneumothorax, or evidence of airspace pulmonary edema. Pulmonary vasculature in the upper lobes is attenuated. IMPRESSION: 1. Emphysema. No superimposed acute radiographic finding to account for patient's shortness of breath. Workstation ID: [id number] [facility] XR CHEST AP/PA AND LATon 1. No acute process identified. 2. Emphysematous change. 3. Suspected right-sided pulmonary nodule or nodules. CT of the chest without contrast is recommended for further evaluation. 4. Question enlargement of the ascending thoracic aorta. RECOMMENDATIONS: CT chest [facility] contrast. [facility]: [id number] [facility] EXAMINATION: TWO XRA Y VIEWS OF THE CHEST 12/29/2019 8:57 am COMPARISON: 11/02/2011. HISTORY: ORDERING SYSTEM PROVIDED HISTORY: Trouble breathing; TECHNOLOGIST PROVIDED HISTORY: Illness/Other Acuity: Acute Reason for Exam: SOB w/ CP Type of Encounter: Initial Additional signs and symptoms: none ORDERING SYSTEM PROVIDED DIAGNOSIS CODES: R06.89 Trouble breathing R07.9 Chest pain, unspecified type FINDINGS: The heart size is normal. There is no pneumothorax, edema or focal consolidation. There is attenuation of the bronchovascular structures consistent emphysematous change. A small right-sided pulmonary nodule is suspected between the posterior 6th and 7th ribs. There is question of a small right upper lobe. The bony thorax is grossly intact. There is mild degenerative change of the spine. There is prominence of the ascending thoracic aorta. [facility], [facility] In Fu ji Speechq - 12/29/2019 4:32 PM EDT EXAMINATION: TWO XRAY VIEWS OF THE CHEST 12/29/2019 8:57 am COMPARISON: 11/02/2011. HISTORY: ORDERING SYSTEM PROVIDED HISTORY: Trouble breathing; TECHNOLOGIST PROVIDED HISTORY: Illness/Other Acuity: Acute Reason for Exam: SOB w/ CP Type of Encounter: Initial Additional signs and symptoms: none ORDERING SYSTEM PROVIDED DIAGNOSIS CODES: R06.89 Trouble breathing R07.9 Chest pain, unspecified type FINDINGS: The heart size is normal. There is no pneumothorax, edema or focal consolidation. There is attenuation of the bronchovascular structures consistent emphysematous change. A small right-sided pulmonary nodule is suspected between the posterior 6th and 7th ribs. There is question of a small right upper lobe. The bony thorax is grossly intact. There is mild degenerative change of the spine. There is prominence of the ascending thoracic aorta. IMPRESSION: 1. No acute process identified. 2. Emphysematous change. 3. Suspected right-sided pulmonary nodule or nodules. CT of the chest without contrast is recommended for further evaluation. 4. Question enlargement of the ascending thoracic aorta. RECOMMENDATIONS: CT chest without contrast. [facility] Work[facility] ID: [id number] [facility] Otheron 12-12-2019 Severe osteoarthriti s of the right hip, as with prior. Workstation ID: [id number] [facility] EXAMINATION: ONE XRA Y VIEW OF THE PELVIS 12/12/2019 10:07 am COMPARISON: 08/17/2019 HISTORY: ORDERING SYSTEM PROVIDED HISTORY: OA hip right; TECHNOLOGIST PROVIDED HISTORY: Illness/Other Acuity: Chronic Reason for Exam: Pain x 4 years Type of Encounter: Subsequent/Follow-up Additional signs and symptoms: Difficult walking ORDERING SYSTEM PROVIDED DIAGNOSIS CODES: M16.11 Primary osteoarthritis of right hip FINDINGS: Severe narrowing of the cartilage space of the right hip with associated subchondral sclerosis and cystic change, similar to prior. Cartilage space of the left hip is maintained. No evidence of fracture or dislocation. Sacrum is partially obscured by overlying bowel gas. Bony mineralization is within normal limits. [facility], [facility] In Fu ji Speechq - 12/12/2019 12:11 PM EDT EXAMINATION: ONE XRAY VIEW OF THE PELVIS 12/12/2019 10:07 am COMPARISON: 08/17/2019 HISTORY: ORDERING SYSTEM PROVIDED HISTORY: OA hip right; TECHNOLOGIST PROVIDED HISTORY: Illness/Other Acuity: Chronic Reason for Exam: Pain x 4 years Type of Encounter: Subsequent/Follow-up Additional signs and symptoms: Difficult walking ORDERING SYSTEM PROVIDED DIAGNOSIS CODES: M16.11 Primary osteoarthritis of right hip FINDINGS: Severe narrowing of the cartilage space of the right hip with associated subchondral sclerosis and cystic change, similar to prior. Cartilage space of the left hip is maintained. No evidence of fracture or dislocation. Sacrum is partially obscured by overlying bowel gas. Bony mineralization is within normal limits. IMPRESSION: Severe osteoarthritis of the right hip, as with prior. Workstation ID: [id number] [facility] Basic Metabolic Panelon 10-07 Anion gap [Moles/Vol] 14 mmol/L 10 - 2 0 mmol/L [facility] Calcium [Mass/Vol] 8.7 mg/dL 8.4 - 10. 2 mg/dL [facility] Chloride [Moles/Vol] 107 mmol/L 98 - 10 8 mmol/L [facility] Creatinine [Mass/Vol] 0.69 mg/dL 0.50 - 1.30 [facility] GFR/1.73 sq M predicted among non-blacks MDRD (S/P/Bld) [Vol rate/Area] The eGFR should be used for monitoring renal function only and not for medication dosing. [facility] GFR/1.73 sq M.predicted CKD-EPI (S/P/Bld) [Vol rate/Area] 104 >=60 mL/min/1.73 m2 [facility] Glucose [Mass/Vol] 86 mg/dL 65 - 99 mg/dL [facility] HCO3 [Moles/Vol] 24 mmol/L 21 - 32 mmol/L [facility] Interpretation and review of laboratory results Abnormal [facility] Potassium [Moles/Vol] 4.2 mmol/L 3.5 - 5.1 mmol/L [facility] Comment on above: Slightly Hemolyzed Sodium [Moles/Vol] 141 mmol/L 135 - 145 mmol/L [facility] Urea nitrogen [Mass/Vol] 15 mg/dL 8 - 25 mg/dL [facility] Urea nitrogen/Creatinine [Mass ratio] 21.7 mg/mg High [facility] CBCon 11-03-2019 Erythrocyte distribution width (RBC) [Entitic vol] 12.9 % 11.6 - 14.8 % [facility] Hematocrit (Bld) [Volume fraction] 44.9 % 41 - 53 % [facility] Hemoglobin (Bld) [Mass/Vol] 14.6 g/dL 13.5 - 17.5 g/dL [facility] Interpretation and review of laboratory results Abnormal [facility] MCH (RBC) [Entitic mass] 32.7 pg 26 - 34 pg [facility] MCHC (RBC) [Mass/Vol] 32.5 g/dL 31 - 37 g/dL O [facility] MCV (RBC) [Entitic vol] 100.4 fL High 80 - 100 fL [facility] Nucleated RBC (Bld) [#/Vol] 0.00 10*3/uL [facility] Nucleated RBC/100 WBC (Bld) [Ratio] 0.0 % [facility] Platelet mean volume (Bld) [Entitic vol] 9.9 fL 9.4 - 12.4 fL [facility] Platelets (Bld) [#/Vol] 203 10*3/uL [facility] RBC (Bld) [#/Vol] 4.47 10*6/uL Low [facility] WBC (Bld) [#/Vol] 5.25 10*3/uL [facility]alth BMPon 11-02-2019 Anion gap [Moles/Vol] 16 mmol/L 10 - 2 0 mmol/L [facility] Calcium [Mass/Vol] 9.1 mg/dL 8.4 - 10. 2 mg/dL [facility] Chloride [Moles/Vol] 101 mmol/L 98 - 10 8 mmol/L [facility] Creatinine [Mass/Vol] 0.81 mg/dL 0.50 - 1.30 [facility] GFR/1.73 sq M predicted among non-blacks MDRD (S/P/Bld) [Vol rate/Area] The eGFR should be used for monitoring renal function only and not for medication dosing. [facility] GFR/1.73 sq M.predicted CKD-EPI (S/P/Bld) [Vol rate/Area] 97 >=60 mL/min/1.73 m2 [facility] Glucose [Mass/Vol] 100 mg/dL High 65 - 99 mg/dL [facility] HCO3 [Moles/Vol] 25 mmol/L 21 - 32 mmol/L [facility] Interpretation and review of laboratory results Abnormal [facility] Potassium [Moles/Vol] 4.0 mmol/L 3.5 - 5.1 mmol/L [facility] Sodium [Moles/Vol] 138 mmol/L 135 - 145 mmol/L [facility] Urea nitrogen [Mass/Vol] 16 mg/dL 8 - 25 mg/dL [facility] Urea nitrogen/Creatinine [Mass ratio] 19.8 mg/mg [facility] CBC WITH AUTO DIFFERENTIALon 11-02-2019 Basophils (Bld) [#/Vol] 0.08 10*3/uL [facility] Basophils/100 WBC (Bld) 1.2 % [facility] Eosinophils (Bld) [#/Vol] 0.33 10*3/uL [facility] Eosinophils/100 WBC (Bld) 4.9 % [facility] Erythrocyte distribution width (RBC) [Entitic vol] 12.9 % 11.6 - 14.8 % [facility] Hematocrit (Bld) [Volume fraction] 47.2 % 41 - 53 % [facility] Hemoglobin (Bld) [Mass/Vol] 15.6 g/dL 13.5 - 17.5 g/dL [facility] Immature granulocytes (Bld) [#/Vol] 0.02 10*3/uL [facility] Immature granulocytes/100 WBC (Bld) 0.30 % [facility] Comment on above: The IG parameter is the percentage of metamyelocytes, myelocytes and promyelocytes. An immature granulocyte count (IG) of 1% or more suggests the possibility of infection, an IG count of 3% is very likely related to an infection. Lymphocytes (Bld) [#/Vol] 1.84 10*3/uL [facility] Lymphocytes/100 WBC (Bld) 27.1 % [facility] MCH (RBC) [Entitic mass] 32.1 pg 26 - 34 pg [facility] MCHC (RBC) [Mass/Vol] 33.1 g/dL 31 - 37 g/dL [facility] MCV (RBC) [Entitic vol] 97.1 fL 80 - 100 fL [facility] Monocytes (Bld) [#/Vol] 0.58 10*3/uL [facility] Monocytes/100 WBC (Bld) 8.5 % [facility] Neutrophils (Bld) [#/Vol] 3.94 10*3/uL [facility] Neutrophils/100 WBC (Bld) 58.0 % [facility] Nucleated RBC (Bld) [#/Vol] 0.00 10*3/uL [facility] Nucleated RBC/100 WBC (Bld) [Ratio] 0.0 % [facility] Platelet mean volume (Bld) [Entitic vol] 9.5 fL 9.4 - 12.4 fL [facility] Platelets (Bld) [#/Vol] 233 10*3/uL [facility] RBC (Bld) [#/Vol] 4.86 10*6/uL [facility] ealth WBC (Bld) [#/Vol] 6.79 10*3/uL [facility]alth COVID-19, Molecularon 2019 Interpretation and review of laboratory results Normal [facility] SARS-CoV-2 Not Detected Not Detected [facility] Comment on above: This test was perfor med under the FDA's Emergency Use Authorization (EUA). Testing was performed using the Mirza ID NOW COVID-19 assay on the ID NOW platform. This test has not been approved for use in asymptomatic patients and its performance in this patient population has not been evaluated. Negative results do not rule out the presence of SARS-CoV-2/COVID-19. Fact sheets for the EUA can be found at the following links: For Healthcare Providers: https://www.fda.gov/media/873585/download For Patients: https://www.fda.gov/media/702259/download D-DIMER, QUANTITATIVEon 10-07 Fibrin D-dimer FEU (PPP) [Mass/Vol] 0.42 0.27 - 0.49 mcg/mL FEU [facility] Interpretation and review of laboratory results Normal [facility] A D-dimer concentrat ion of <0.5 micrograms per milliliter FEU is considered a low probability for pulmonary embolus (PE) and deep venous thrombosis (DVT). Results of this test should always be interpreted in conjunction with the patient's medical history,clinical presentation, and other findings. Clinical diagnosis should not be based on the results of the D-dimer alone. [facility] ECG 12-LEADon 11-02-2019 Atrial Rate 75 BPM [facility] P [place] -10 degrees [facility] P-R Interval 158 ms [facility] Q-T Interval 364 ms [facility] [facility] QRS Duration 94 ms [facility] QTC Calculation (Bezet) 406 ms [facility] R [place] 3 degrees [facility] T [place] -12 degrees [facility] Ventricular Rate 75 BPM [facility] th Normal sinus rhythm Inferior infarct , age undetermined Abnormal ECG When compared with ECG of 11-AUG-2019 12:15, Inferior infarct is now Present T wave inversion now evident in Inferior leads T wave amplitude has increased in Lateral leads Confirmed by Physician, ED ([id number]), photo editor BILL SANTACRUZ ([id number]) on 11/02/2019 1:02:05 PM [facility] Interpretation and review of laboratory results Abnormal [facility] Angelika Oswald MD 11/02/2019 12:25 PM ECG 12 Lead Date/Time: 11/02/2019 12:23 PM Performed by: Angelika Oswald MD Authorized by: Angelika Oswald MD Interpreted by ED attending physician Comparison: compared with previous ECG Comparison to previous EC08/2019 Rhythm comments: NSR BPM: 75 Conduction comments: Normal axis and intervals;QTc 410; NOLAN Clinical impression: abnormal ECG Comments: No ST changes with new TWI in III and AVF; Q-wave in III; neg STEMI; no criteria for WPW, Brugada, HOCM or ARVD [facility] ECHOCARDIOGRAM COMPLETEon Transthoracic Echocardiogram Patient: KAROLINA Vazquez [facility] Rec#: [id number] (Age): 1960(59y) Height: 187(cm)/73(in) Study Date: 11/02/2019 Weight: 63.5(kg)/140(lb Room#: 56 BSA: [id number] Type: Inpatient Loc: [facility] Echo Lab Sex: M Reading: Jeremiah Romero D.O. Referring: Lisa Howe Plow Mechanic: LATISHA DURAN History: Asthma. COPD. Hypertension. Diagnosis: ICD-10-PCS Syncope and collapse (R55) Syncope (780.2) CPT Code(s): ECHO COMPLETE W/ DOPPLER (26899) Study Quality The study quality is technically difficult. Summary: Patient identity verified and ID band on (pause and confirm). Current HP present on patient chart. Procedure explained and patient verified understanding. Conclusions: Normal LV chamber size and function, LVEF 55-60%. Normal RV chamber size and function. No significant valvular dysfunction. Findings Reason For Study: Syncope. Left Ventricle: The left ventricular chamber size is normal. The estimated ejection fraction is 55-60%. The diastolic filling pattern is consistent with impaired relaxation and normal LA pressure (Mild diastolic dysfunction). Mild concentric remodeling of the LV. Atypical septal motion, possibly due to a bundle branch block. Left Atrium: The left atrial chamber size is normal. Right Ventricle: The right ventricular cavity size is normal. The right ventricular global systolic function is normal. Right Atrium: The right atrial cavity size is normal. Aortic Valve: The aortic valve is not well visualized. There is no hemodynamically significant stenosis. There is no evidence of aortic regurgitation. Mitral Valve: The mitral valve leaflets appear normal. There is no evidence of mitral stenosis. There is no evidence of mitral regurgitation. Tricuspid Valve: The tricuspid valve leaflets are normal. There is no evidence of tricuspid valve regurgitation. Pulmonary artery pressure could not be estimated. Pulmonic Valve: The pulmonic valve appears grossly normal in structure and function. There is no pulmonic stenosis. There is no evidence of pulmonic regurgitation. Pericardium: The pericardium appears normal. Aorta: The aorta appears normal. Pulmonary Artery: The main pulmonary artery appears normal. Venous: The inferior vena cava appears normal. HR 73 BP 146/85 Measurements Chambers MM Name Value Normal Range AV cusp separation (MM) 2.1 cm none Chambers 2D Name Value Normal Range IVSd (2D) 1.06 cm none LVPWd (2D) 1.48 cm none IVS:LVPW ratio (2D) 0.72 ratio none LVIDd (2D) 3.85 cm none LVIDs (2D) 2.91 cm none LVIDd (2D) index 2.07 cm/m2 none LVIDs (2D) index 1.56 cm/m2 none LV FS (2D) 24.42 % none LV FS (Teichholz) (2D) 24.4 % none LV FS (cube) (2D) 24.4 % none EF Teichholz (2D) 49.17 % none LA dimension (AP) 2D 2.9 cm none LA dimension (2D) index 1.56 cm/m2 none Volumes/Mass Name Value Normal Range LV EDV SP 4CH (MOD) 90.6 ml none LV ESV SP 4CH (MOD) 28.6 ml none EF SP 4CH (MOD) 68.43 % none LV EDV SP 2CH (MOD) 59.8 ml none LV ESV SP 2CH (MOD) 22.2 ml none EF SP 2CH (MOD) 62.88 % none LV EDV BP 75.3 ml none LV ESV BP 25.1 ml none BP EF (MOD) 66.67 % none LV EDV BP index 40.47 ml/m2 none LV ESV BP index 13.49 ml/m2 none LV mass (2D) 170.2 g none LV mass (2D) index 91.48 g/m2 none Diastolic/Systolic Function Name Value Normal Range MV E-wave Vmax 0.63 m/sec none MV deceleration time 218 msec none MV A-wave Vmax 0.72 m/sec none MV E:A ratio 0.87 ratio (1.1 - 1.5) LV E:e' septal ratio 6.7 ratio none LV E:e' lateral ratio 7.3 ratio none Aortic Valve Name Value Normal Range AV Vmax 1.03 m/sec (1 - 1.7) AV peak gradient 4.24 mmHg (Less Than 36) LVOT diameter 2.1 cm (1.7 - 2.5) LVOT Vmax 0.91 m/sec (0.7 - 1.1) LVOT peak gradient 3 mmHg none DOI (Vmax) 0.88 ratio none SWETA (continuity Vmax) 3.05 cm2 none SWETA (continuity Vmax) index 1.64 cm2/m2 none Pulmonic Valve/Qp:Qs Name Value Normal Range PV Vmax 0.9 m/sec (0.6 - 0.9) PV peak gradient 3.23 mmHg none PV acceleration time 109 msec none Electronically Signed at 11/02/2019 16:05:30 by: Jeremiah Romero D.O. [facility] Interface, Rad In [facility] Xper Echopacs - 11/02/2019 4:52 PM EDT Transthoracic Echocardiogram Patient: KAROLINA Vazquez [facility] Rec#: [id number] (Age): 1960(59y) Height: 187(cm)/73(in) Study Date: 11/02/2019 Weight: 63.5(kg)/140(lb Room#: 56 BSA: [id number] Type: Inpatient Loc: [facility] Echo Lab Sex: M Reading: Jeremiah Romero D.O. Referring: Lisa Howe Plow Mechanic: LATISHA DURAN History: Asthma. COPD. Hypertension. Diagnosis: ICD-10-PCS Syncope and collapse (R55) Syncope (780.2) CPT Code(s): ECHO COMPLETE W/ DOPPLER (03364) Study Quality The study quality is technically difficult. Summary: Patient identity verified and ID band on (pause and confirm). Current HP present on patient chart. Procedure explained and patient verified understanding. Conclusions: Normal LV chamber size and function, LVEF 55-60%. Normal RV chamber size and function. No significant valvular dysfunction. Findings Reason For Study: Syncope. Left Ventricle: The left ventricular chamber size is normal. The estimated ejection fraction is 55-60%. The diastolic filling pattern is consistent with impaired relaxation and normal LA pressure (Mild diastolic dysfunction). Mild concentric remodeling of the LV. Atypical septal motion, possibly due to a bundle branch block. Left Atrium: The left atrial chamber size is normal. Right Ventricle: The right ventricular cavity size is normal. The right ventricular global systolic function is normal. Right Atrium: The right atrial cavity size is normal. Aortic Valve: The aortic valve is not well visualized. There is no hemodynamically significant stenosis. There is no evidence of aortic regurgitation. Mitral Valve: The mitral valve leaflets appear normal. There is no evidence of mitral stenosis. There is no evidence of mitral regurgitation. Tricuspid Valve: The tricuspid valve leaflets are normal. There is no evidence of tricuspid valve regurgitation. Pulmonary artery pressure could not be estimated. Pulmonic Valve: The pulmonic valve appears grossly normal in structure and function. There is no pulmonic stenosis. There is no evidence of pulmonic regurgitation. Pericardium: The pericardium appears normal. Aorta: The aorta appears normal. Pulmonary Artery: The main pulmonary artery appears normal. Venous: The inferior vena cava appears normal. HR 73 BP 146/85 Measurements Chambers MM Name Value Normal Range AV cusp separation (MM) 2.1 cm none Chambers 2D Name Value Normal Range IVSd (2D) 1.06 cm none LVPWd (2D) 1.48 cm none IVS:LVPW ratio (2D) 0.72 ratio none LVIDd (2D) 3.85 cm none LVIDs (2D) 2.91 cm none LVIDd (2D) index 2.07 cm/m2 none LVIDs (2D) index 1.56 cm/m2 none LV FS (2D) 24.42 % none LV FS (Teichholz) (2D) 24.4 % none LV FS (cube) (2D) 24.4 % none EF Teichholz (2D) 49.17 % none LA dimension (AP) 2D 2.9 cm none LA dimension (2D) index 1.56 cm/m2 none Volumes/Mass Name Value Normal Range LV EDV SP 4CH (MOD) 90.6 ml none LV ESV SP 4CH (MOD) 28.6 ml none EF SP 4CH (MOD) 68.43 % none LV EDV SP 2CH (MOD) 59.8 ml none LV ESV SP 2CH (MOD) 22.2 ml none EF SP 2CH (MOD) 62.88 % none LV EDV BP 75.3 ml none LV ESV BP 25.1 ml none BP EF (MOD) 66.67 % none LV EDV BP index 40.47 ml/m2 none LV ESV BP index 13.49 ml/m2 none LV mass (2D) 170.2 g none LV mass (2D) index 91.48 g/m2 none Diastolic/Systolic Function Name Value Normal Range MV E-wave Vmax 0.63 m/sec none MV deceleration time 218 msec none MV A-wave Vmax 0.72 m/sec none MV E:A ratio 0.87 ratio (1.1 - 1.5) LV E:e' septal ratio 6.7 ratio none LV E:e' lateral ratio 7.3 ratio none Aortic Valve Name Value Normal Range AV Vmax 1.03 m/sec (1 - 1.7) AV peak gradient 4.24 mmHg (Less Than 36) LVOT diameter 2.1 cm (1.7 - 2.5) LVOT Vmax 0.91 m/sec (0.7 - 1.1) LVOT peak gradient 3 mmHg none DOI (Vmax) 0.88 ratio none SWETA (continuity Vmax) 3.05 cm2 none SWETA (continuity Vmax) index 1.64 cm2/m2 none Pulmonic Valve/Qp:Qs Name Value Normal Range PV Vmax 0.9 m/sec (0.6 - 0.9) PV peak gradient 3.23 mmHg none PV acceleration time 109 msec none Electronically Signed at 11/02/2019 16:05:30 by: Jeremiah Romero D.O. [facility] EKGon 11-02-2019 Ordered by an unspec ified provider. [facility] Hemoglobin A1con 11-02-2019 Average glucose Estimated from glycated hemoglobin mass conc (Bld) 111 mg/dL 74 - 114 mg/dL [facility] HbA1c (Bld) [Mass fraction] 5.5 % 4.2 - 5.6 % [facility] Interpretation and review of laboratory results Normal [facility] Normal: 4.2% - 5.6% Increased risk for diabetes: 5.7% - 6.4% Diabetes: >= 6.5% Pediatrics: No established reference range Estimated average glucose: 74-114 mg/dL [facility] Lipid Panelon 11-02-2019 Cholesterol [Mass/Vol] 159 mg/dL 100 - 199 mg/dL [facility] Comment on above: National Cholesterol Education Program Guidelines: Cholesterol Desirable: <200 mg/dL Borderline High: 200-239 mg/dL High: greater than or equal to 240 mg/dL Cholesterol in HDL [Mass/Vol] 46 mg/dL 40 - 59 [facility] Comment on above: National Cholesterol Education Program Guidelines: HDL Cholesterol Low: <40 mg/dL Near Optimal: 40-59 mg/dL High: greater than or equal to 60 mg/dL Cholesterol in LDL [Mass/Vol] 102 mg/dL 10 - 130 mg/dL [facility] Comment on above: National Cholesterol Education Program Guidelines: LDL Cholesterol Optimal: <100 mg/dL Near Optimal/above Optimal: 100-129 mg/dL Borderline High: 130-159 mg/dL High: 160-189 mg/dL Very High: greater than or equal to 190 mg/dL Cholesterol non HDL [Mass/Vol] 113 mg/dL [facility] Comment on above: National Cholesterol Education Program Guidelines: NON HDL Cholesterol Desirable: <130 mg/dL Borderline High: 130-159 mg/dL High: 160-189 mg/dL Very High: > or = 190 mg/dL Cholesterol.total/Cho lesterol in HDL [Mass ratio] 3.5 {ratio} ratio [facility] Comment on above: Males Cholesterol/HD L Ratio: Average risk: 5.0 1/2 average risk: 3.4 2 x average risk: 9.6 Triglyceride [Mass/Vol] 56 mg/dL 30 - 150 mg/dL [facility] Comment on above: National Cholesterol Education Program Guidelines: Triglyceride Normal: <150 mg/dL Borderline High: 150-199 mg/dL High: 200-499 mg/dL Very High: greater than or equal to 500 mg/dL Metabolic Panelon 11-02-2019 Glucose [Mass/Vol] 90 mg/dL 65 - 99 mg/dL [facility] NT Pro BNPon 11-02-2019 Interpretation and review of laboratory results Normal [facility] Natriuretic peptide.B prohormone N-Terminal [Mass/Vol] <50 0 - 300 pg/mL [facility] Pride Study Cut-offs Rule In: < /= 50 Years >450 pg/mL 51 Years - 75 Years >900 pg/mL 76 Years - 99 Years >1800 pg/mL Rule Out: All patients <300 pg/mL [facility] Otheron 11-02-2019 Extra Tube Hold for add-ons. [facility] Comment on above: Auto resulted. Interpretation and review of laboratory results Normal [facility] TROPONINon 11-02-2019 Troponin T.cardiac [Mass/Vol] 8 ng/L <=22 [facility] Troponin T.cardiac [Mass/Vol] 0 ng/L < = -/+ 7 change [facility] Troponin T.cardiac [Mass/Vol] No biomarker evidence of cardiac injury. [facility] Troponin T.cardiac [Mass/Vol] 8 ng/L <=22 [facility] Troponin T.cardiac [Mass/Vol] Normal [facility] US RENAL AND BLADDERon 11-01 Unremarkable ultraso und of the kidneys and urinary bladder. [employer] Workstation ID: [id number] [facility] EXAMINATION: RETROPERITONEAL ULTRASOUND OF THE KIDNEYS AND URINARY BLADDER 11/02/2019 COMPARISON: 01/09/2018. HISTORY: Renal disease. FINDINGS: Kidneys: The right kidney measures 9.6 cm in length and the left kidney measures 10.1 cm in length. Kidneys demonstrate normal cortical echogenicity. No evidence of hydronephrosis or intrarenal stones. Bladder: Unremarkable appearance of the bladder. No significant post void residual. Bilateral ureteral jets are present. [facility] Interface, Rad In Fu ji Speechq - 11/02/2019 10:24 AM EDT EXAMINATION: RETROPERITONEAL ULTRASOUND OF THE KIDNEYS AND URINARY BLADDER 11/02/2019 COMPARISON: 01/09/2018. HISTORY: Renal disease. FINDINGS: Kidneys: The right kidney measures 9.6 cm in length and the left kidney measures 10.1 cm in length. Kidneys demonstrate normal cortical echogenicity. No evidence of hydronephrosis or intrarenal stones. Bladder: Unremarkable appearance of the bladder. No significant post void residual. Bilateral ureteral jets are present. IMPRESSION: Unremarkable ultrasound of the kidneys and urinary bladder. [employer] Workstation ID: [id number] [facility] XR Chest 1 Viewon 11-02-2019 No acute process. Workstation ID: [id number] [facility] EXAMINATION: ONE XRA Y VIEW OF THE CHEST 11/02/2019 12:59 pm COMPARISON: 08/11/2019 HISTORY: ORDERING SYSTEM PROVIDED HISTORY: cp; TECHNOLOGIST PROVIDED HISTORY: Illness/Other Acuity: Chronic Reason for Exam: Patent c/o 2 syncopal episodes today. He was lifting a water cooler the first time. The second episode happened directly after. States his lips were numb and tingly prior to passing out but has resolved. Type of Encounter: Initial Additional signs and symptoms: none given FINDINGS: The lungs are without acute focal process. There is no effusion or pneumothorax. The cardiomediastinal silhouette is without acute process. The osseous structures are without acute process. [facility] Interface, Rad In Fu ji Speechq - 11/02/2019 1:12 PM EDT EXAMINATION: ONE XRAY VIEW OF THE CHEST 11/02/2019 12:59 pm COMPARISON: 08/11/2019 HISTORY: ORDERING SYSTEM PROVIDED HISTORY: cp; TECHNOLOGIST PROVIDED HISTORY: Illness/Other Acuity: Chronic Reason for Exam: Patent c/o 2 syncopal episodes today. He was lifting a water cooler the first time. The second episode happened directly after. States his lips were numb and tingly prior to passing out but has resolved. Type of Encounter: Initial Additional signs and symptoms: none given FINDINGS: The lungs are without acute focal process. There is no effusion or pneumothorax. The cardiomediastinal silhouette is without acute process. The osseous structures are without acute process. IMPRESSION: No acute process. Workstation ID: [id number] [facility] US TESTICLE WITH COLOR FLOWo n 10-21-2019 No evidence of testi cular torsion or mass. Bilateral epididymal head cysts more pronounced on the right than the left. The cystic changes in the epididymides have shown progression from 10 years earlier. Small simple bilateral hydroceles. [facility] Workstation ID: [id number] [facility] EXAMINATION: ULTRASO UND OF THE SCROTUM/TESTICLES WITH COLOR DOPPLER FLOW EVALUATION 10/21/2019 COMPARISON: Testicular ultrasound dated 02/13/2010 HISTORY: ORDERING SYSTEM PROVIDED HISTORY: Testicle swelling; TECHNOLOGIST PROVIDED HISTORY: Illness/Other Acuity: Acute Reason for Exam: swelling Type of Encounter: Initial Additional signs and symptoms: none ORDERING SYSTEM PROVIDED DIAGNOSIS CODES: N50.89 Testicle swelling FINDINGS: MEASUREMENTS: Right Testicle: 4.3 cm x 4 cm x 2.6 cm Left Testicle: 4.9 cm x 3.4 cm x 4.9 cm RIGHT: LEE SCALE: The right testicle demonstrates normal homogeneous echotexture without focal lesion. No evidence of testicular microlithiasis. DOPPLER EVALUATION: There is normal arterial and venous Doppler flow within the testicle. SCROTAL SAC: Small simple hydrocele is present. EPIDIDYMIS: There are multiple variably sized benign cysts associated with the epididymis particular in the head of the epididymis. The cystic changes in the head of the epididymis measure 5.3 cm x 4 cm x 8.4 cm. LEFT: LEE SCALE: The left testicle demonstrates normal homogeneous echotexture without focal lesion. No evidence of testicular microlithiasis. DOPPLER EVALUATION: There is normal arterial and venous Doppler flow within the testicle. SCROTAL SAC: Small simple hydrocele is present. EPIDIDYMIS: There are multiple cysts in the epididymal head on the left. The dominant cyst measures about 3.5 cm x 2.7 cm in dimension. [facility], Rad In Fu ji Speechq - 10/21/2019 10:49 AM EDT EXAMINATION: ULTRASOUND OF THE SCROTUM/TESTICLES WITH COLOR DOPPLER FLOW EVALUATION 10/21/2019 COMPARISON: Testicular ultrasound dated 02/13/2010 HISTORY: ORDERING SYSTEM PROVIDED HISTORY: Testicle swelling; TECHNOLOGIST PROVIDED HISTORY: Illness/Other Acuity: Acute Reason for Exam: swelling Type of Encounter: Initial Additional signs and symptoms: none ORDERING SYSTEM PROVIDED DIAGNOSIS CODES: N50.89 Testicle swelling FINDINGS: MEASUREMENTS: Right Testicle: 4.3 cm x 4 cm x 2.6 cm Left Testicle: 4.9 cm x 3.4 cm x 4.9 cm RIGHT: LEE SCALE: The right testicle demonstrates normal homogeneous echotexture without focal lesion. No evidence of testicular microlithiasis. DOPPLER EVALUATION: There is normal arterial and venous Doppler flow within the testicle. SCROTAL SAC: Small simple hydrocele is present. EPIDIDYMIS: There are multiple variably sized benign cysts associated with the epididymis particular in the head of the epididymis. The cystic changes in the head of the epididymis measure 5.3 cm x 4 cm x 8.4 cm. LEFT: LEE SCALE: The left testicle demonstrates normal homogeneous echotexture without focal lesion. No evidence of testicular microlithiasis. DOPPLER EVALUATION: There is normal arterial and venous Doppler flow within the testicle. SCROTAL SAC: Small simple hydrocele is present. EPIDIDYMIS: There are multiple cysts in the epididymal head on the left. The dominant cyst measures about 3.5 cm x 2.7 cm in dimension. IMPRESSION: No evidence of testicular torsion or mass. Bilateral epididymal head cysts more pronounced on the right than the left. The cystic changes in the epididymides have shown progression from 10 years earlier. Small simple bilateral hydroceles. [employer] Workstation ID: [id number] [facility] BMPon 08-11-2019 Anion gap [Moles/Vol] 14 mmol/L 10 - 2 0 mmol/L [facility] Calcium [Mass/Vol] 8.6 mg/dL 8.4 - 10. 2 mg/dL [facility] Chloride [Moles/Vol] 106 mmol/L 98 - 10 8 mmol/L [facility] Creatinine [Mass/Vol] 0.85 mg/dL 0.50 - 1.30 [facility] GFR/1.73 sq M predicted among non-blacks MDRD (S/P/Bld) [Vol rate/Area] The eGFR should be used for monitoring renal function only and not for medication dosing. [facility] GFR/1.73 sq M.predicted CKD-EPI (S/P/Bld) [Vol rate/Area] 95 >=60 mL/min/1.73 m2 [facility] Glucose [Mass/Vol] 101 mg/dL High 65 - 99 mg/dL [facility] HCO3 [Moles/Vol] 26 mmol/L 21 - 32 mmol/L [facility] Interpretation and review of laboratory results Abnormal [facility] Potassium [Moles/Vol] 4.0 mmol/L 3.5 - 5.1 mmol/L [facility] Sodium [Moles/Vol] 142 mmol/L 135 - 145 mmol/L [facility] Urea nitrogen [Mass/Vol] 15 mg/dL 8 - 25 mg/dL [facility] Urea nitrogen/Creatinine [Mass ratio] 17.6 mg/mg [facility] CBC WITH AUTO DIFFERENTIALon 08-11-2019 Basophils (Bld) [#/Vol] 0.07 10*3/uL [facility] Basophils/100 WBC (Bld) 1.0 % [facility] Eosinophils (Bld) [#/Vol] 1.12 10*3/uL High [facility] Eosinophils/100 WBC (Bld) 16.3 % [facility] Erythrocyte distribution width (RBC) [Entitic vol] 13.2 % 11.6 - 14.8 % [facility] Hematocrit (Bld) [Volume fraction] 41.9 % 41 - 53 % [facility] Hemoglobin (Bld) [Mass/Vol] 14.0 g/dL 13.5 - 17.5 g/dL [facility] Immature granulocytes (Bld) [#/Vol] 0.01 10*3/uL [facility] Immature granulocytes/100 WBC (Bld) 0.10 % [facility] Comment on above: The IG parameter is the percentage of metamyelocytes, myelocytes, and promyelocytes. Interpretation and review of laboratory results Abnormal [facility] Lymphocytes (Bld) [#/Vol] 0.98 10*3/uL [facility] Lymphocytes/100 WBC (Bld) 14.2 % [facility] MCH (RBC) [Entitic mass] 32.3 pg 26 - 34 pg [facility] MCHC (RBC) [Mass/Vol] 33.4 g/dL 31 - 37 g/dL [facility] MCV (RBC) [Entitic vol] 96.8 fL 80 - 100 fL [facility] Monocytes (Bld) [#/Vol] 0.80 10*3/uL [facility] Monocytes/100 WBC (Bld) 11.6 % [facility] Neutrophils (Bld) [#/Vol] 3.91 10*3/uL [facility] Neutrophils/100 WBC (Bld) 56.8 % [facility] Nucleated RBC (Bld) [#/Vol] 0.00 10*3/uL [facility] Nucleated RBC/100 WBC (Bld) [Ratio] 0.0 % [facility] Platelet mean volume (Bld) [Entitic vol] 9.3 fL 9 - 15.5 fL [facility] Platelets (Bld) [#/Vol] 203 10*3/uL [facility] RBC (Bld) [#/Vol] 4.33 10*6/uL Low [facility] eah WBC (Bld) [#/Vol] 6.89 10*3/uL [facility] ealth ECG 12-LEADon 08-11-2019 Atrial Rate 86 BPM [facility] P [place] 77 degrees [facility] P-R Interval 156 ms [facility] Q-T Interval 350 ms [facility] QRS Duration 96 ms [facility] QTC Calculation (Bezet) 418 ms [facility] R [place] 81 degrees [facility] T [place] 74 degrees [facility] Ventricular Rate 86 BPM [facility] Normal sinus rhythm Normal ECG When compared with ECG of 09-JAN-2017 20:09, No significant change was found Confirmed by Physician, ED ([id number]), photo editor CARMEN FLEMING ([id number]) on 08/11/2019 12:22:02 PM [facility] NT Pro BNPon 08-11-2019 Interpretation and review of laboratory results Normal [facility] Natriuretic peptide.B prohormone N-Terminal [Mass/Vol] 73 pg/mL 0 - 300 pg/mL [facility] Pride Study Cut-offs Rule In: < /= 50 Years >450 pg/mL 51 Years - 75 Years >900 pg/mL 76 Years - 99 Years >1800 pg/mL Rule Out: All patients <300 pg/mL [facility] TROPONINon 08-11-2019 Troponin T.cardiac [Mass/Vol] ug/L <=22 ng/L [facility] Troponin T.cardiac [Mass/Vol] Normal [facility] XR CHEST AP/PA AND LATon Interface, Rad In Juliocesar ji Speechq - 08/11/2019 12:50 PM EST EXAMINATION: TWO XRAY VIEWS OF THE CHEST 08/11/2019 12:20 pm COMPARISON: 08/04/2019 HISTORY: ORDERING SYSTEM PROVIDED HISTORY: copd cough; TECHNOLOGIST PROVIDED HISTORY: Illness/Other Acuity: Acute Reason for Exam: copd cough Type of Encounter: Subsequent/Follow-up Additional signs and symptoms: copd cough FINDINGS: The lungs and pleural sinuses are clear. The cardiomediastinal silhouette appears within normal limits. IMPRESSION: No acute cardiopulmonary disease identified. Workstation ID: [id number] [facility] No acute cardiopulmo nary disease identified. Workstation ID: [id number] [facility] EXAMINATION: TWO XRA Y VIEWS OF THE CHEST 08/11/2019 12:20 pm COMPARISON: 08/04/2019 HISTORY: ORDERING SYSTEM PROVIDED HISTORY: copd cough; TECHNOLOGIST PROVIDED HISTORY: Illness/Other Acuity: Acute Reason for Exam: copd cough Type of Encounter: Subsequent/Follow-up Additional signs and symptoms: copd cough FINDINGS: The lungs and pleural sinuses are clear. The cardiomediastinal silhouette appears within normal limits. [facility] XR CHEST AP/PA AND LATon Changes of underlyin g COPD. No significant change in appearance of the chest. Workstation ID: [id number] [facility] EXAMINATION: TWO XRA Y VIEWS OF THE CHEST 08/04/2019 11:48 am COMPARISON: 06/22/2018 HISTORY: ORDERING SYSTEM PROVIDED HISTORY: SOB (shortness of breath) on exertion; TECHNOLOGIST PROVIDED HISTORY: Illness/Other Acuity: Acute Reason for Exam: SOB (shortness of breath) on exertion Type of Encounter: Initial ORDERING SYSTEM PROVIDED DIAGNOSIS CODES: R06.02 SOB (shortness of breath) on exertion FINDINGS: Cardiac silhouette is normal in size. No pneumothorax or pleural effusion. No consolidation. Findings suggestive of underlying COPD. Overall, appearance of the chest is similar to previous exam. [facility] Interface, Rad In Juliocesar souza [employer] - 08/04/2019 2:37 PM EST EXAMINATION: TWO XRAY VIEWS OF THE CHEST 08/04/2019 11:48 am COMPARISON: 06/22/2018 HISTORY: ORDERING SYSTEM PROVIDED HISTORY: SOB (shortness of breath) on exertion; TECHNOLOGIST PROVIDED HISTORY: Illness/Other Acuity: Acute Reason for Exam: SOB (shortness of breath) on exertion Type of Encounter: Initial ORDERING SYSTEM PROVIDED DIAGNOSIS CODES: R06.02 SOB (shortness of breath) on exertion FINDINGS: Cardiac silhouette is normal in size. No pneumothorax or pleural effusion. No consolidation. Findings suggestive of underlying COPD. Overall, appearance of the chest is similar to previous exam. IMPRESSION: Changes of underlying COPD. No significant change in appearance of the chest. Workstation ID: [id number] [facility] CT Dissection With Pelvison 01-10-2018 CT Dissection With Pelvis 1. No aortic dissection or aneurysm identified. No significant stenosis or occlusion. No acute findings identified within the chest, abdomen and pelvis. 2. Moderate pulmonary emphysema Workstation ID: [id number] Invalid Interpretation Code [facility] CT Dissection With Pelvis Interface, Rad In [facility] - 01/10/2018 12:07 AM EDT EXAMINATION: CTA DISSECTION CHEST ABDOMEN PELVIS WITHOUT AND WITH CONTRAST 01/09/2018 11:00 pm TECHNIQUE: CTA of the chest, abdomen and pelvis was performed before and after the administration of intravenous contrast as per dissection protocol. Multiplanar reformatted images are provided for review. MIP images are provided for review. Dose modulation, iterative reconstruction, and/or weight based adjustment of the mA/kV was utilized to reduce the radiation dose to as low as reasonably achievable. COMPARISON: None. HISTORY: ORDERING SYSTEM PROVIDED HISTORY: Hx of aneurysm; TECHNOLOGIST PROVIDED HISTORY: Reason for Exam: Hx of aneurysm Illness/Other Acuity: Acute Type of Encounter: Initial Additional signs and symptoms: Hx of aneurysm FINDINGS: CTA CHEST: No evidence of thoracic aortic dissection or aneurysm. Assessment of the aortic root is slightly limited due to cardiac motion. No significant stenosis or occlusion. Heart is within normal limits. No enlarged mediastinal lymph nodes. No focal consolidation. No significant pleural effusion. No pneumothorax. Moderate emphysema. No acute fracture identified within the chest. CTA ABDOMEN: No acute dissection or aneurysm of abdominal aorta. No significant stenosis or occlusion. No acute findings of the liver, spleen, pancreas, adrenal glands or kidneys. No hydronephrosis. No bowel obstruction. Gallbladder is unremarkable. No enlarged lymph nodes in the abdomen and pelvis. No free air. No bowel obstruction. No enteritis or colitis identified. No free fluid. No acute fracture identified in the abdomen and pelvis. CTA PELVIS: No acute findings within the pelvis. IMPRESSION: 1. No aortic dissection or aneurysm identified. No significant stenosis or occlusion. No acute findings identified within the chest, abdomen and pelvis. 2. Moderate pulmonary emphysema Workstation ID: [id number] Invalid Interpretation Code [facility] CT Dissection With Pelvis EXAMINATION: CTA DISSECTION CHEST ABDOMEN PELVIS WITHOUT AND WITH CONTRAST 01/09/2018 11:00 pm TECHNIQUE: CTA of the chest, abdomen and pelvis was performed before and after the administration of intravenous contrast as per dissection protocol. Multiplanar reformatted images are provided for review. MIP images are provided for review. Dose modulation, iterative reconstruction, and/or weight based adjustment of the mA/kV was utilized to reduce the radiation dose to as low as reasonably achievable. COMPARISON: None. HISTORY: ORDERING SYSTEM PROVIDED HISTORY: Hx of aneurysm; TECHNOLOGIST PROVIDED HISTORY: Reason for Exam: Hx of aneurysm Illness/Other Acuity: Acute Type of Encounter: Initial Additional signs and symptoms: Hx of aneurysm FINDINGS: CTA CHEST: No evidence of thoracic aortic dissection or aneurysm. Assessment of the aortic root is slightly limited due to cardiac motion. No significant stenosis or occlusion. Heart is within normal limits. No enlarged mediastinal lymph nodes. No focal consolidation. No significant pleural effusion. No pneumothorax. Moderate emphysema. No acute fracture identified within the chest. CTA ABDOMEN: No acute dissection or aneurysm of abdominal aorta. No significant stenosis or occlusion. No acute findings of the liver, spleen, pancreas, adrenal glands or kidneys. No hydronephrosis. No bowel obstruction. Gallbladder is unremarkable. No enlarged lymph nodes in the abdomen and pelvis. No free air. No bowel obstruction. No enteritis or colitis identified. No free fluid. No acute fracture identified in the abdomen and pelvis. CTA PELVIS: No acute findings within the pelvis. Invalid Interpretation Code [facility] EKGon 01-10-2018 EKG Ordered by an unspec ified provider. Invalid Interpretation Code [facility] Repeat EKGon 01-10-2018 Repeat EKG Elijah Reis DO 01/10/2018 3:07 AM Repeat EKG Date/Time: 01/10/2018 3:07 AM Performed by: ELIJAH REIS Authorized by: ELIJAH REIS Interpreted by ED attending physician Rhythm: sinus rhythm BPM: 81 Conduction: conduction normal normal DC interval normal QT interval Other findings: LVH Comments: No acute ST segment elevation Invalid Interpretation Code [facility] Troponinon 01-10-2018 Interpretation and review of laboratory results Normal Invalid Interpretation Code [facility] Troponin T.cardiac mass conc ug/L Invalid Interpretation Code <0.040 ng/mL [facility] XR Chest 1 Viewon 01-10-2018 XR Chest 1 View EXAMINATION: SINGLE XRAY VIEW OF THE CHEST 01/10/2018 COMPARISON: Chest radiograph 12/13/2017 HISTORY: ORDERING SYSTEM PROVIDED HISTORY: DVT; TECHNOLOGIST PROVIDED HISTORY: Reason for Exam: DVT Illness/Other Acuity: Unknown Type of Encounter: Subsequent/Follow-up Additional signs and symptoms: unk ORDERING SYSTEM PROVIDED DIAGNOSIS CODES: R06.02 Shortness of breath FINDINGS: Clear lungs. No findings of pneumothorax or pleural effusion. Normal mediastinal, hilar, and cardiac contours. No acute fracture. Invalid Interpretation Code [facility] XR Chest 1 View No acute cardiopulmo nary process. Workstation ID: [id number] Invalid Interpretation Code [facility] XR Chest 1 View Interface, Rad In [facility] ji [employer] - 01/10/2018 1:52 AM EDT EXAMINATION: SINGLE XRAY VIEW OF THE CHEST 01/10/2018 COMPARISON: Chest radiograph 12/13/2017 HISTORY: ORDERING SYSTEM PROVIDED HISTORY: DVT; TECHNOLOGIST PROVIDED HISTORY: Reason for Exam: DVT Illness/Other Acuity: Unknown Type of Encounter: Subsequent/Follow-up Additional signs and symptoms: unk ORDERING SYSTEM PROVIDED DIAGNOSIS CODES: R06.02 Shortness of breath FINDINGS: Clear lungs. No findings of pneumothorax or pleural effusion. Normal mediastinal, hilar, and cardiac contours. No acute fracture. IMPRESSION: No acute cardiopulmonary process. Workstation ID: [id number] Invalid Interpretation Code [facility] BMPon 01-09-2018 Anion gap 3 molar conc 14 mmol/L Invalid Interpretation Code 10 - 20 mmol/L [facility] Calcium mass conc 8.5 mg/dL Invalid Interpretation Code 8.4 - 10.2 mg/dL [facility] Chloride molar conc 104 mmol/L Invalid Interpretation Code 98 - 108 mmol/L [facility] Creatinine mass conc 1.06 mg/dL Invalid Interpretation Code 0.5 - 1.3 mg/dL [facility] GFR/1.73 sq M predicted among non-blacks MDRD vol rate/area (S/P/Bld) The eGFR should be used for monitoring renal function only and not for medication dosing. Invalid Interpretation Code [facility] GFR/1.73 sq M.predicted CKD-EPI vol rate/area (S/P/Bld) 78 mL/min/1.73 m2 Invalid Interpretation Code >=60 [facility] Glucose mass conc 110 mg/dL High 65 - 99 mg/dL [facility] HCO3 molar conc 26 mmol/L Invalid Interpretation Code 21 - 32 mmol/L [facility] Potassium molar conc 3.9 mmol/L Invalid Interpretation Code 3.5 - 5.1 mmol/L [facility] Sodium molar conc 140 mmol/L Invalid Interpretation Code 135 - 145 mmol/L [facility] Urea nitrogen mass conc 12 mg/dL Invalid Interpretation Code 8 - 25 mg/dL [facility] Urea nitrogen/Creatinine mass ratio 11.3 mg/mg Invalid Interpretation Code 10.0 - 20.0 [facility] Blood Gas, Venous with Full Panelon 01-09-2018 Base excess Calculated molar conc (BldV) 0.9 1 Invalid Interpretation Code -2.0 - 2.0 [facility] Calcium.ionized mass conc 4.5 mg/dL Invalid Interpretation Code 4.5 - 5.3 mg/dL [facility] Carboxyhemoglobin/Hem oglobin.total mass fraction (BldA) 4.0 % of total Hb High 0.0 - 1.5 [facility] Comment on above: Reference Ranges: [facility] Non-smokers:<1.5% Smokers:1.5-5.0% Heavy Smokers:5.0-9.0% CO2 ppres (BldV) 45.9 mm Hg Invalid Interpretation Code 41.0 - 51.0 [facility] Glucose mass conc 107 mg/dL High 65 - 99 mg/dL [facility] HCO3 molar conc (Bld) 26.0 mmol/L Invalid Interpretation Code 24 - 28 mmol/L [facility] Hematocrit Volume Fraction (BldA) 38.4 % Low 41 - 53 % [facility] Hemoglobin mass conc (Bld) 12.5 g/dL Low 13.5 - 18 g/dL [facility] Interpretation and review of laboratory results Abnormal Invalid Interpretation Code [facility] Lactate molar conc 1.3 mmol/L Invalid Interpretation Code 0.6 - 2 mmol/L [facility] Methemoglobin/Hemoglo bin.total mass fraction (BldA) 0.6 % Invalid Interpretation Code 0 - 2 % [facility] Oxygen ppres (BldV) 48 mm Hg High 25 - 40 [facility] Oxygen saturation in Venous blood 83.2 % Invalid Interpretation Code [facility] Oxyhemoglobin/Hemoglo bin.total mass fraction (BldA) 79.5 % Low 94 - 98 % [facility] pH (BldV) 7.37 1 Invalid Interpretation Code 7.32 - 7.42 [facility] Potassium molar conc 3.7 mmol/L Invalid Interpretation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 thoracic spine. C/ Workstation ID: [id number] Invalid Interpretation Code [employer] [facility] MR Thoracic Spine Without Contrast Interface, Rad In [employer] - 12/14/2017 4:01 PM EDT EXAMINATION: MRI OF THE THORACIC SPINE WITHOUT CONTRAST 12/14/2017 TECHNIQUE: Multiplanar multisequence MRI of the thoracic spine was performed without the administration of intravenous contrast. COMPARISON: MRI cervical spine performed earlier same day. HISTORY: ORDERING SYSTEM PROVIDED HISTORY: Low back pain with radiculopathy; TECHNOLOGIST PROVIDED HISTORY: Reason for Exam: Low back pain with radiculopathy Illness/Other Acuity: Acute Type of Encounter: Initial ORDERING SYSTEM PROVIDED DIAGNOSIS CODES: J44.9 Chronic obstructive pulmonary disease, unspecified COPD type ([facility]) R07.9 Chest pain, unspecified type R20.2 Paresthesia of right arm I71.2 Thoracic aortic aneurysm without rupture ([facility]) FINDINGS: BONES/ALIGNMENT: There is normal alignment of the thoracic spine. There is no acute fracture or listhesis. Bone marrow signal intensity is normal. Intervertebral disc heights are maintained. There is mild disc desiccation within the mid thoracic spine. There are type I degenerative endplate changes present at T11-12. SPINAL CORD: The thoracic spinal cord is normal in size and signal intensities. SOFT TISSUES: There is no paraspinal mass identified. T6-T7: There is a focal 1 mm right paracentral disc protrusion. This does not result in significant spinal canal stenosis or neural foraminal narrowing. T7-T8: There is a focal 1 mm right paracentral disc protrusion. This does not result in significant spinal canal stenosis or neural foraminal narrowing. IMPRESSION: Focal 1 mm right paracentral disc protrusions at T6-7 and T7-8 without significant spinal canal stenosis or neural foraminal narrowing present within the thoracic spine. [facility]/ Workstation ID: [id number] Invalid Interpretation Code [employer] [facility] MR Thoracic Spine Without Contrast EXAMINATION: MRI OF THE THORACIC SPINE WITHOUT CONTRAST 12/14/2017 TECHNIQUE: Multiplanar multisequence MRI of the thoracic spine was performed without the administration of intravenous contrast. COMPARISON: MRI cervical spine performed earlier same day. HISTORY: ORDERING SYSTEM PROVIDED HISTORY: Low back pain with radiculopathy; TECHNOLOGIST PROVIDED HISTORY: Reason for Exam: Low back pain with radiculopathy Illness/Other Acuity: Acute Type of Encounter: Initial ORDERING SYSTEM PROVIDED DIAGNOSIS CODES: J44.9 Chronic obstructive pulmonary disease, unspecified COPD type ([facility]) R07.9 Chest pain, unspecified type R20.2 Paresthesia of right arm I71.2 Thoracic aortic aneurysm without rupture ([facility]) FINDINGS: BONES/ALIGNMENT: There is normal alignment of the thoracic spine. There is no acute fracture or listhesis. Bone marrow signal intensity is normal. Intervertebral disc heights are maintained. There is mild disc desiccation within the mid thoracic spine. There are type I degenerative endplate changes present at T11-12. SPINAL CORD: The thoracic spinal cord is normal in size and signal intensities. SOFT TISSUES: There is no paraspinal mass identified. T6-T7: There is a focal 1 mm right paracentral disc protrusion. This does not result in significant spinal canal stenosis or neural foraminal narrowing. T7-T8: There is a focal 1 mm right paracentral disc protrusion. This does not result in significant spinal canal stenosis or neural foraminal narrowing. Invalid Interpretation Code [employer] [facility] Troponinon 12-14-2017 Interpretation and review of laboratory results Normal Invalid Interpretation Code [facility] Troponin T.cardiac mass conc ug/L Invalid Interpretation Code <0.040 ng/mL [facility] Interpretation and review of laboratory results Normal Invalid Interpretation Code [facility] Troponin T.cardiac mass conc ug/L Invalid Interpretation Code <0.040 ng/mL [facility] Interpretation and review of laboratory results Normal Invalid Interpretation Code [facility] Troponin T.cardiac mass conc ug/L Invalid Interpretation Code <0.040 ng/mL [facility] Urinalysison 12-14-2017 Bacteria Auto Ql (U) None Seen Invalid Interpretation Code None Seen /hpf [facility] Bilirubin Ql (U) Negative Invalid Interpretation Code Negative [facility] Clarity Refractometry automated Nom (U) Clear Invalid Interpretation Code Clear [facility] Color Auto Nom (U) Yellow Invalid Interpretation Code Colorless, Yellow [facility] Epithelial cells.squamous Auto #/area (Urine sed) 1 /hpf Invalid Interpretation Code 0 - 4 [facility] Glucose Automated test strip mass conc (U) Negative Invalid Interpretation Code Negative mg/dL [facility] Hemoglobin Automated test strip Ql (U) Negative Invalid Interpretation Code Negative [facility] Interpretation and review of laboratory results Abnormal Invalid Interpretation Code [facility] Ketones Automated test strip mass conc (U) Negative Invalid Interpretation Code Negative mg/dL [facility] Leukocyte esterase Automated test strip Ql (U) Negative Invalid Interpretation Code Negative [facility] Mucus Auto #/area (Urine sed) Rare Invalid Interpretation Code None Seen, Rare /lpf [facility] Nitrite Automated test strip Ql (U) Negative Invalid Interpretation Code Negative [facility] RBC Auto #/area (Urine sed) <1 Invalid Interpretation Code 0 - 3 /hpf [facility] Specific gravity Automated test strip Relative Density (U) >1.050 High 1.005 - 1.025 [facility] Urine, pH 6.0 [pH] Invalid Interpretation Code 5.0 - 7.0 [facility] Urine, protein Negative Invalid Interpretation Code Negative mg/dL [facility] Urine, urobilinogen >=4.0 Abnormal <2.0 mg/dL [facility] AB WBC Auto #/area (Urine sed) <1 Invalid Interpretation Code 0 - 5 /hpf [facility] Yeast.budding Computer assisted #/area (U) Rare Abnormal None Seen /hpf [facility] Urinalysis Microscopic examinat ion is performed on all urinalysis samples and only positive findings are reported. The test for blood on the chemical analytic portion of urinalysis may also be positive due to hemoglobinuria and myoglobinuria and if red blood cells are present they are quantified by microscopic examination. Invalid Interpretation Code [facility] Urine Drug Screenon 12-15-19 18 Amphetamine Screen Ql (U) None Detected Invalid Interpretation Code None Detected [facility] Comment on above: Urine Amphetamine Cu toff: < 1000 ng/mL = None Detected Cocaine Screen Ql (U) Positive Abnormal None Detected [facility] Comment on above: Urine Cocaine Cutoff : < 300 ng/mL = None Detected Methadone Screen Ql (U) None Detected Invalid Interpretation Code None Detected [facility] Comment on above: Urine Methadone Cuto ff: < 300 ng/mL = None Detected Opiates Screen Ql (U) None Detected Invalid Interpretation Code None Detected [facility] Comment on above: Urine Opiates Cutoff : < 300 ng/mL = None Detected Oxycodone Screen Ql (U) None Detected Invalid Interpretation Code None Detected [facility] Comment on above: Urine Oxycodone Cuto ff: < 100 ng/mL = None Detected Urine, barbiturates presence None Detected Invalid Interpretation Code None Detected [facility] Comment on above: Urine Barbiturates C utoff: < 200 ng/mL = None Detected Urine, benzodiazepines presence None Detected Invalid Interpretation Code None Detected [facility] Comment on above: Urine Benzodiazepine Cutoff: < 300 ng/mL = None Detected Urine, cannabinoids presence None Detected Invalid Interpretation Code None Detected [facility] Comment on above: Urine Cannabinoids C utoff: < 50 ng/mL = None Detected Urine Drug Screen Screen results shoul d be used for treatment purposes only. Specimen will be kept for 2 weeks, if the sample is adequate. Confirmation testing can be initiated by calling the lab within 2 weeks. Invalid Interpretation Code [facility] Alcohol, [facility] 8 Ethanol mg/dL Invalid Interpretation Code <10.0 mg/dL [facility] Comment on above: Alcohol cutoff: <10. 00 mg/dL = None Detected Interpretation and review of laboratory results Normal Invalid Interpretation Code [facility] 12-13-2017 Anion gap 16 mmol/L Invalid Interpretation Code 10 - 20 mmol/L [facility] Bicarbonate molar conc (S) 25 mmol/L Invalid Interpretation Code 21 - 32 mmol/L [facility] BUN/Creatinine Ratio 20.5 mg/mg High 10.0 - 20.0 [facility] Calcium 8.6 mg/dL Invalid Interpretation Code 8.4 - 10.2 mg/dL [facility] Chloride 104 mmol/L Invalid Interpretation Code 98 - 108 mmol/L [facility] Creatinine 0.88 mg/dL Invalid Interpretation Code 0.5 - 1.3 mg/dL [facility] eGFR (non-black) The eGFR should be u sed for monitoring renal function only and not for medication dosing. Invalid Interpretation Code [facility] GFR/1.73 sq M.predicted CKD-EPI vol rate/area 95 mL/min/1.73 m2 Invalid Interpretation Code >=60 [facility] Glucose mass conc 114 mg/dL High 65 - 99 mg/dL [facility] Interpretation and review of laboratory results Abnormal Invalid Interpretation Code [facility] Potassium molar conc 3.4 mmol/L Low 3.5 - 5 .1 mmol/L [facility] Sodium 142 mmol/L Invalid Interpretation Code 135 - 145 mmol/L [facility] Urea nitrogen 18 mg/dL Invalid Interpretation Code 8 - 25 mg/dL [facility] CBC Auto Differentialon Basophils Auto #/vol (Bld) 0.10 K/mcL Invalid Interpretation Code 0.00 - 0.30 [facility] Basophils/100 WBC Auto (Bld) 1.6 % Invalid Interpretation Code [facility] Eosinophils 0.46 K/mcL Invalid Interpretation Code 0.00 - 0.50 [facility] Eosinophils/100 leukocytes 7.5 % Invalid Interpretation Code [facility] Erythrocyte distribution width Auto Entitic volume (RBC) 13.1 % Invalid Interpretation Code 11.6 - 14.8 % [facility] Erythrocytes (RBC) 4.46 M/mcL Low 4.50 - 5.90 [facility] Hematocrit (HCT) 43.1 % Invalid Interpretation Code 41 - 53 % [facility] Hemoglobin mass conc (Bld) 14.6 g/dL Invalid Interpretation Code 13.5 - 17.5 g/dL [facility] Immature granulocytes #/vol (Bld) 0.02 K/mcL Invalid Interpretation Code 0.00 - 0.30 [facility] Immature granulocytes/100 WBC (Bld) 0.30 % Invalid Interpretation Code [facility] Comment on above: The IG parameter is the percentage of metamyelocytes, myelocytes, and promyelocytes. Lymphocytes 1.83 K/mcL Invalid Interpretation Code 0.90 - 4.00 [facility] Lymphocytes/100 leukocytes 29.9 % Invalid Interpretation Code [facility] MCH 32.7 pg Invalid Interpretation Code 26 - 34 pg [facility] MCHC mass conc (RBC) 33.9 g/dL Invalid Interpretation Code 31 - 37 g/dL [facility] MCV 96.6 fL Invalid Interpretation Code 80 - 100 fL [facility] Monocytes 0.64 K/mcL Invalid Interpretation Code 0.30 - 0.90 [facility] Monocytes/100 leukocytes 10.5 % Invalid Interpretation Code [facility] Neutrophils 3.07 K/mcL Invalid Interpretation Code 1.70 - 7.00 [facility] Neutrophils/100 WBC Auto (Bld) 50.2 % Invalid Interpretation Code [facility] Nucleated erythrocytes 0.00 K/mcL Invalid Interpretation Code 0.00 - 0.00 [facility] Nucleated erythrocytes/100 erythrocytes 0.0 % Invalid Interpretation Code [facility] Platelet mean volume (PMV) 9.4 fL Invalid Interpretation Code 9 - 15.5 fL [facility] Platelets 223 K/mcL Invalid Interpretation Code 150 - 400 [facility] WBC (Leukocytes) 6.12 K/mcL Invalid Interpretation Code 4.50 - 11.00 [facility] CBC w/ Diffon 12-13-2017 CBC w/ Diff The following orders were created for panel order CBC w/ Diff. Procedure Abnormality Status --------- ------ CBC Auto Differential[[id number]] Abnormal Final result Please view results for these tests on the individual orders. Invalid Interpretation Code [facility] CT Head Or Brain Without Con traston 12-13-2017 CT Head Or Brain Without Contrast EXAMINATION: CT OF THE HEAD WITHOUT CONTRAST 12/13/2017 TECHNIQUE: CT of the head was performed without the administration of intravenous contrast. Dose modulation, iterative reconstruction, and/or weight based adjustment of the mA/kV was utilized to reduce the radiation dose to as low as reasonably achievable. COMPARISON: MRI of 01/10/2017 HISTORY: ORDERING SYSTEM PROVIDED HISTORY: RUE tremors, hx TIA; TECHNOLOGIST PROVIDED HISTORY: Reason for Exam: RUE tremors, hx TIA Illness/Other Acuity: Acute Type of Encounter: Initial Mechanism of Injury: RUE tremors, hx TIA Additional signs and symptoms: RUE tremors, hx TIA FINDINGS: BRAIN/VENTRICLES: No acute intracranial hemorrhage or extraaxial fluid collection. Lee-white differentiation is maintained. No evidence of mass, mass effect or midline shift. No evidence of hydrocephalus. ORBITS: The visualized portion of the orbits demonstrate no acute abnormality. SINUSES: The visualized paranasal sinuses and mastoid air cells demonstrate no acute abnormality. SOFT TISSUES/SKULL: No acute abnormality of the visualized skull or soft tissues. Invalid Interpretation Code [employer] [facility] CT Head Or Brain Without Contrast No acute intracranial abnormality. No significant change from the MRI. Workstation ID: [id number] Invalid Interpretation Code [employer] [facility] CT Head Or Brain Without Contrast Interface, Rad In [facility] [facility] - 12/13/2017 7:25 PM EDT EXAMINATION: CT OF THE HEAD WITHOUT CONTRAST 12/13/2017 TECHNIQUE: CT of the head was performed without the administration of intravenous contrast. Dose modulation, iterative reconstruction, and/or weight based adjustment of the mA/kV was utilized to reduce the radiation dose to as low as reasonably achievable. COMPARISON: MRI of 01/10/2017 HISTORY: ORDERING SYSTEM PROVIDED HISTORY: RUE tremors, hx TIA; TECHNOLOGIST PROVIDED HISTORY: Reason for Exam: RUE tremors, hx TIA Illness/Other Acuity: Acute Type of Encounter: Initial Mechanism of Injury: RUE tremors, hx TIA Additional signs and symptoms: RUE tremors, hx TIA FINDINGS: BRAIN/VENTRICLES: No acute intracranial hemorrhage or extraaxial fluid collection. Lee-white differentiation is maintained. No evidence of mass, mass effect or midline shift. No evidence of hydrocephalus. ORBITS: The visualized portion of the orbits demonstrate no acute abnormality. SINUSES: The visualized paranasal sinuses and mastoid air cells demonstrate no acute abnormality. SOFT TISSUES/SKULL: No acute abnormality of the visualized skull or soft tissues. IMPRESSION: No acute intracranial abnormality. No significant change from the MRI. Workstation ID: [id number] Invalid Interpretation Code [employer] [facility] CT Pulmonary Arterieson CT Pulmonary Arteries No acute pulmonary artery embolism. Emphysema. Ascending aortic aneurysm 4.1 cm. [facility] Workstation ID: [id number] Invalid Interpretation Code [facility] CT Pulmonary Arteries Interface, Rad In [facility] - 12/13/2017 9:57 PM EDT EXAMINATION: CTA OF THE CHEST 12/13/2017 TECHNIQUE: CTA of the chest was performed after the administration of intravenous contrast. Multiplanar reformatted images are provided for review. MIP images are provided for review. Dose modulation, iterative reconstruction, and/or weight based adjustment of the mA/kV was utilized to reduce the radiation dose to as low as reasonably achievable. COMPARISON: None. HISTORY: ORDERING SYSTEM PROVIDED HISTORY: pleuritic left chest pain, dyspnea, cough, smoker; TECHNOLOGIST PROVIDED HISTORY: Reason for Exam: pleuritic left chest pain, dyspnea, cough, smoker Illness/Other Acuity: Acute Type of Encounter: Initial Additional signs and symptoms: Reports that he is been feeling short of breath today. Has a history of COPD, states he has felt short of breath for the last 30 years, but a bit worse today. States he only used half a breathing treatment early this morning because he was in a gross to get to see his grandchildren. Denies any chest pain FINDINGS: PULMONARY ARTERIES: Pulmonary arteries are adequately opacified for evaluation. No evidence of intraluminal filling defect to suggest pulmonary embolism. Main pulmonary artery is normal in caliber. MEDIASTINUM: The heart size is normal. The ascending aorta is aneurysmal measuring up to 4.1 cm. There are no pathologically enlarged intrathoracic or axillary lymph nodes based on CT size criteria. LUNGS/PLEURA: The central airways are patent. There is layering debris within the distal trachea. The lung parenchyma is emphysematous. Lungs are clear without nodule or mass. UPPER ABDOMEN: Limited images of the upper abdomen are unremarkable. SOFT TISSUES/BONES: No acute bone or soft tissue abnormality. IMPRESSION: No acute pulmonary artery embolism. Emphysema. Ascending aortic aneurysm 4.1 cm. [facility] Workstation ID: [id number] Invalid Interpretation Code [employer] [facility] CT Pulmonary Arteries EXAMINATION: CTA O F THE CHEST 12/13/2017 TECHNIQUE: CTA of the chest was performed after the administration of intravenous contrast. Multiplanar reformatted images are provided for review. MIP images are provided for review. Dose modulation, iterative reconstruction, and/or weight based adjustment of the mA/kV was utilized to reduce the radiation dose to as low as reasonably achievable. COMPARISON: None. HISTORY: ORDERING SYSTEM PROVIDED HISTORY: pleuritic left chest pain, dyspnea, cough, smoker; TECHNOLOGIST PROVIDED HISTORY: Reason for Exam: pleuritic left chest pain, dyspnea, cough, smoker Illness/Other Acuity: Acute Type of Encounter: Initial Additional signs and symptoms: Reports that he is been feeling short of breath today. Has a history of COPD, states he has felt short of breath for the last 30 years, but a bit worse today. States he only used half a breathing treatment early this morning because he was in a gross to get to see his grandchildren. Denies any chest pain FINDINGS: PULMONARY ARTERIES: Pulmonary arteries are adequately opacified for evaluation. No evidence of intraluminal filling defect to suggest pulmonary embolism. Main pulmonary artery is normal in caliber. MEDIASTINUM: The heart size is normal. The ascending aorta is aneurysmal measuring up to 4.1 cm. There are no pathologically enlarged intrathoracic or axillary lymph nodes based on CT size criteria. LUNGS/PLEURA: The central airways are patent. There is layering debris within the distal trachea. The lung parenchyma is emphysematous. Lungs are clear without nodule or mass. UPPER ABDOMEN: Limited images of the upper abdomen are unremarkable. SOFT TISSUES/BONES: No acute bone or soft tissue abnormality. Invalid Interpretation Code [facility] EKG 12-leadon 12-13-2017 EKG 12-lead Lashawn Capone DO 12/13/2017 10:19 PM EKG 12-lead Date/Time: 12/13/2017 10:07 PM Performed by: LASHAWN CAPONE Authorized by: LASHAWN CAPONE Interpreted by ED attending physician Comparison: compared with previous ECG Similar to previous ECG Rhythm: sinus rhythm BPM: 71 Conduction: conduction normal QRS axis: normal normal DC interval normal QRS interval QT interval (ms): 481. Clinical impression: non-specific ECG Comments: She will ST depression in inferior leads but suspect this is due to wavy baseline Invalid Interpretation Code [facility] Munoz Topon 12-13-2017 Extra Tube Hold for add-ons. Invalid Interpretation Code [facility] Comment on above: Auto resulted. Lipid Panelon 12-13-2017 Cholesterol 161 mg/dL Invalid Interpretation Code 100 - 199 mg/dL [facility] Cholesterol non HDL mass conc 113 mg/dL Invalid Interpretation Code [facility] Comment on above: National Cholesterol Education Program Guidelines: NON HDL Cholesterol Desirable: <130 mg/dL Borderline High: 130-159 mg/dL High: 160-189 mg/dL Very High: > or = 190 mg/dL Cholesterol to HDL Ratio 3.4 {ratio} Invalid Interpretation Code [facility] Comment on above: Males Cholesterol/HD L Ratio: Average risk: 5.0 1/2 average risk: 3.4 2 x average risk: 9.6 HDL Cholesterol 48 mg/dL Invalid Interpretation Code 40 - 59 [facility] LDL Cholesterol 100 mg/dL Invalid Interpretation Code 10 - 130 mg/dL [facility] Comment on above: National Cholesterol Education Program Guidelines: LDL Cholesterol Optimal: <100 mg/dL Near Optimal/above Optimal: 100-129 mg/dL Borderline High: 130-159 mg/dL High: 160-189 mg/dL Very High: greater than or equal to 190 mg/dL Reference range change on 06/22/17 to reflect NCEP guidelines. Triglyceride 65 mg/dL Invalid Interpretation Code 30 - 150 mg/dL [facility] NT Pro BNPon 07-08-2018 Natriuretic peptide.B prohormone N-Terminal mass conc <50 Invalid Interpretation Code 0 - 300 pg/mL [facility] NT Pro BNP Pride Study Cut-offs Rule In: < /= 50 Years >450 pg/mL 51 Years- 75 Years >900 pg/mL 76 Years - 99 Years >1800 pg/mL Rule Out: All patients <300 pg/mL Invalid Interpretation Code [facility] PT/INRon 12-13-2017 INR Coag RelTime (Bld) During the induction phase of oral anticoagulation, the INR may not reflect the anticoagulation status of the patient. Therapeutic ranges for INR's are: Most clinical situations: INR 2.0-3.0 Mechanical Prosthetic Valve: INR 2.5-3.5 Critical: INR >5.0 Invalid Interpretation Code [facility] INR Coag RelTime (PPP) 1.0 {INR} Invalid Interpretation Code 0.8 - 1.1 [facility] Interpretation and review of laboratory results Normal Invalid Interpretation Code [facility] Prothrombin time (PT) Coag time (PPP) 13.2 s Invalid Interpretation Code 11.8 - 14.3 [facility] [place] Drawon 12-13-2017 [place] Draw The following orders were created for panel order [place] Draw. Procedure Abnormality Status --------- ------ Gold Top[[id number]] Final result Munoz Top[[id number]] Final result Please view results for these tests on the individual orders. Invalid Interpretation Code [facility] Troponinon 12-13-2017 Troponin T.cardiac mass conc ug/L Invalid Interpretation Code <0.040 ng/mL [facility] XR Chest 1 Viewon 12-13-2017 Protein Scattered prominence of the interstitium is noted in the mid to upper lung zones. This is nonspecific and may be related to portable technique. Mild venous congestion not excluded entirely. Upright two view chest may be more helpful Workstation ID: [id number] Invalid Interpretation Code [facility] XR Chest 1 View Interface, Rad In [employer] [employer] - 12/13/2017 7:41 PM EDT EXAMINATION: SINGLE XRAY VIEW OF THE CHEST 12/13/2017 6:37 pm COMPARISON: January 2017 HISTORY: ORDERING SYSTEM PROVIDED HISTORY: sob; TECHNOLOGIST PROVIDED HISTORY: Reason for Exam: sob Illness/Other Acuity: Acute Type of Encounter: Initial Additional signs and symptoms: pt c/o sob, hx of COPD FINDINGS: Heart size is normal. Scattered prominent markings are noted bilaterally, greatest in the mid to upper lung zones. There is no consolidation. There is no effusion or pneumothorax. IMPRESSION: Scattered prominence of the interstitium is noted in the mid to upper lung zones. This is nonspecific and may be related to portable technique. Mild venous congestion not excluded entirely. Upright two view chest may be more helpful Workstation ID: [id number] Invalid Interpretation Code [employer] [facility] XR Chest 1 View EXAMINATION: SINGLE XRAY VIEW OF THE CHEST 12/13/2017 6:37 pm COMPARISON: January 2017 HISTORY: ORDERING SYSTEM PROVIDED HISTORY: sob; TECHNOLOGIST PROVIDED HISTORY: Reason for Exam: sob Illness/Other Acuity: Acute Type of Encounter: Initial Additional signs and symptoms: pt c/o sob, hx of COPD FINDINGS: Heart size is normal. Scattered prominent markings are noted bilaterally, greatest in the mid to upper lung zones. There is no consolidation. There is no effusion or pneumothorax. Invalid Interpretation Code [employer] [facility] Basic Metabolic Panelon 08-0 Anion gap molar conc 13 mmol/L 10 - 20 mmol/L [facility] Calcium mass conc 8.6 mg/dL 8.4 - 10.2 mg/dL [facility] Chloride molar conc 107 mmol/L 98 - 108 mmol/L [facility] Creatinine mass conc 0.71 mg/dL 0.5 - 1 .3 mg/dL [facility] GFR/1.73 sq M predicted among non-blacks MDRD vol rate/area (S/P/Bld) The eGFR should be used for monitoring renal function only and not for medication dosing. [facility] GFR/1.73 sq M.predicted CKD-EPI vol rate/area (S/P/Bld) 105 mL/min/1.73 m2 >=60 [facility] Glucose mass conc 117 mg/dL High 65 - 99 mg/dL [facility] HCO3 molar conc 28 mmol/L 21 - 32 mmol/L [facility] Interpretation and review of laboratory results Abnormal [facility] Potassium molar conc 4.3 mmol/L 3.5 - 5 .1 mmol/L [facility] Sodium molar conc 144 mmol/L 135 - 145 mmol/L [facility] Urea nitrogen mass conc 17 mg/dL 8 - 25 mg/dL [facility] Urea nitrogen/Creatinine mass ratio 23.9 mg/mg High 10.0 - 20.0 [facility] CBCon 01-10-2017 Erythrocyte distribution width Entitic volume (RBC) 13.5 % 11.6 - 14.8 % [facility] Hematocrit Volume Fraction (Bld) 39.6 % Low 41 - 53 % [facility] Hemoglobin mass conc (Bld) 13.3 g/dL Low 13.5 - 17.5 g/dL [facility] MCH Entitic mass (RBC) 32.8 pg 26 - 34 pg [facility] MCHC mass conc (RBC) 33.6 g/dL 31 - 37 g/dL [facility] MCV Entitic volume (RBC) 97.5 fL 80 - 100 fL [facility] Nucleated RBC #/vol (Bld) 0.00 K/mcL 0.00 - 0.00 [facility] Nucleated RBC/100 WBC Ratio (Bld) 0.0 % [facility] Platelet mean volume Entitic volume (Bld) 9.8 fL 9 - 15.5 fL [facility] Platelets #/vol (Bld) 232 K/mcL 150 - [address] [facility] RBC #/vol (Bld) 4.06 M/mcL Low 4.50 - 5.90 [facility] WBC #/vol (Bld) 6.63 K/mcL 4.50 - 11.00 [facility] Echocardiogram complete with bubble studyon 01-10-2017 Echocardiogram complete with bubble study Transthoracic Echocardiogram Patient: KAROLINA Vazquez [facility] Rec#: [id number] (Age): 1960(56y) Height: 187.96(cm)/73(i Study Date: 01/10/2017 Weight: 61.24(kg)/135(l Room#: 8214 BSA: [id number] Type: Inpatient Loc: CIL Sex: M Reading: Karma Mcgovern DO, FAC Referring: UGO JIANG R. Nurse: Juanita Diallo RN Plow Mechanic: Simba Redding RDCS, RV History: Asthma. COPD. Emphysema. Diagnosis: ICD-10-PCS Personal history of transient ischemic attack (TIA), and cerebral infarction without residual deficits (Z86.73) CVA, cerebral embolism with infarct (434.11) TIA, unspecified (435.9) CPT Code(s): ECHO COMPLETE W/ DOPPLER (17400) Study Quality The study quality is technically difficult. The study is technically limited due to poor parasternal windows. The study is technically limited due to the patient's history of COPD. The study is technically limited due to the patient's smoking history. Summary: Patient identity verified and ID band on (pause and confirm). Current HP present on patient chart. Procedure explained and patient verified understanding. Consent obtained for procedure. Medication Reconciliation completed. 9ml Saline agitated with 1ml air, injected IV push per Lab Protocol. A two-dimensional transthoracic echocardiogram with color flow, pulsed and continuous Doppler was performed. Conclusions: The left ventricular chamber size is normal. There is no left ventricular hypertrophy observed. There is normal left ventricular systolic function. The estimated ejection fraction is 55-60%. Abnormal left ventricular diastolic filling is observed, consistent with impaired relaxation. No clot, vegetation,or mass identified. Bubble study revealed evidence of scant (1-3 bubbles) right to left shunting. This suggests presence of an intracardiac shunt such as a patent foramen ovale. Findings Reason For Study: CVA, acute. TIA. Left Ventricle: The left ventricular chamber size is normal. There is no left ventricular hypertrophy observed. There is normal left ventricular systolic function. The estimated ejection fraction is 55-60%. Abnormal left ventricular diastolic filling is observed, consistent with impaired relaxation. Left Atrium: The left atrial chamber size is normal. No atrial septal defect is demonstrated by color Doppler. Right Ventricle: The right ventricular cavity size is normal. The right ventricular global systolic function is normal. Right Atrium: The right atrial cavity size is normal. Aortic Valve: The aortic valve is trileaflet. Aortic valve appears sclerotic. There is no hemodynamically significant stenosis. There is no evidence of aortic regurgitation. Mitral Valve: The mitral valve leaflets appear normal. There is no evidence of mitral stenosis. There is mild mitral regurgitation. Tricuspid Valve: The tricuspid valve leaflets are normal. There is no tricuspid stenosis. There is a trace tricuspid regurgitation. Pulmonic Valve: The pulmonic valve is not well visualized. There is no pulmonic stenosis. There is no evidence of pulmonic regurgitation. Pericardium: There is no pericardial effusion. Aorta: There is no dilatation of the aortic root. Venous: The inferior vena cava appears normal in size. There is a greater than 50% respiratory change in the inferior vena cava dimension. HR 78 BP 128/81 Measurements Chambers 2D Name Value Normal Range IVSd (2D) 0.8 cm none LVPWd (2D) 1.01 cm none IVS:LVPW ratio (2D) 0.79 ratio none LVIDd (2D) 4.27 cm none LVIDs (2D) 3.47 cm none LVIDd (2D) index 2.32 cm/m2 none LVIDs (2D) index 1.89 cm/m2 none Ao root diameter (2D) 3.5 cm none LA dimension (AP) 2D 3.8 cm none LA:Ao ratio (2D) 1.09 ratio none Aortic root diameter (2D) inde1.9 cm/m2 none LA dimension (2D) index 2.07 cm/m2 none Volumes/Mass Name Value Normal Range LA Area 2 CH 18.7 cm2 none LA Area 4 CH 14 cm2 none LA ESV SP 4CH (MOD) 39.3 ml none LA ESV SP 2CH (MOD) 55.5 ml none LA ESV BP (MOD) 50.5 ml none LA ESV BP (MOD) index 27.46 ml/m2 none LV EDV SP 4CH (MOD) 79.7 ml none LV ESV SP 4CH (MOD) 34.6 ml none LV EDV SP 2CH (MOD) 91.2 ml none LV ESV SP 2CH (MOD) 40.6 ml none LV EDV BP 89.1 ml none LV ESV BP 37.8 ml none LV EDV BP index 48.45 ml/m2 none LV ESV BP index 20.56 ml/m2 none LV mass (2D) 122.45 g none LV mass (2D) index 66.59 g/m2 none Diastolic/Systolic Function Name Value Normal Range MV E-wave Vmax 0.72 m/sec none MV deceleration time 313 msec none MV A-wave Vmax 0.9 m/sec none MV E:A ratio 0.79 ratio (1.1 - 1.5) LV E:e' septal ratio 8.5 ratio none LV E:e' lateral ratio 8.1 ratio none Aortic Valve Name Value Normal Range AV Vmax 1.23 m/sec (1 - 1.7) AV peak gradient 6.05 mmHg (Less Than 36) LVOT diameter 2 cm (1.7 - 2.5) LVOT Vmax 0.91 m/sec (0.7 - 1.1) LVOT peak gradient 3 mmHg none DOI (Vmax) 0.74 ratio none SWETA (continuity Vmax) 2.33 cm2 none SWETA (continuity Vmax) index 1.27 cm2/m2 none Electronically Signed at 01/10/2017 11:39:34 by: Karma Mcgovern, , FACC, [facility] Echocardiogram complete with bubble study Interface, Rad In [facility] - 01/10/2017 11:40 AM EDT Transthoracic Echocardiogram Patient: KAROLINA Vazquez [facility] Rec#: [id number] (Age): 1960(56y) Height: 187.96(cm)/73(i Study Date: 01/10/2017 Weight: 61.24(kg)/135(l Room#: 8214 BSA: [id number] Type: Inpatient Loc: CIL Sex: M Reading: Karma Mcgovern, DO, FAC Referring: UGO JIANG R. Nurse: Juanita Diallo RN Plow Mechanic: Simba Redding RDCS, RV History: Asthma. COPD. Emphysema. Diagnosis: ICD-10-PCS Personal history of transient ischemic attack (TIA), and cerebral infarction without residual deficits (Z86.73) CVA, cerebral embolism with infarct (434.11) TIA, unspecified (435.9) CPT Code(s): ECHO COMPLETE W/ DOPPLER (27401) Study Quality The study quality is technically difficult. The study is technically limited due to poor parasternal windows. The study is technically limited due to the patient's history of COPD. The study is technically limited due to the patient's smoking history. Summary: Patient identity verified and ID band on (pause and confirm). Current HP present on patient chart. Procedure explained and patient verified understanding. Consent obtained for procedure. Medication Reconciliation completed. 9ml Saline agitated with 1ml air, injected IV push per Lab Protocol. A two-dimensional transthoracic echocardiogram with color flow, pulsed and continuous Doppler was performed. Conclusions: The left ventricular chamber size is normal. There is no left ventricular hypertrophy observed. There is normal left ventricular systolic function. The estimated ejection fraction is 55-60%. Abnormal left ventricular diastolic filling is observed, consistent with impaired relaxation. No clot, vegetation,or mass identified. Bubble study revealed evidence of scant (1-3 bubbles) right to left shunting. This suggests presence of an intracardiac shunt such as a patent foramen ovale. Findings Reason For Study: CVA, acute. TIA. Left Ventricle: The left ventricular chamber size is normal. There is no left ventricular hypertrophy observed. There is normal left ventricular systolic function. The estimated ejection fraction is 55-60%. Abnormal left ventricular diastolic filling is observed, consistent with impaired relaxation. Left Atrium: The left atrial chamber size is normal. No atrial septal defect is demonstrated by color Doppler. Right Ventricle: The right ventricular cavity size is normal. The right ventricular global systolic function is normal. Right Atrium: The right atrial cavity size is normal. Aortic Valve: The aortic valve is trileaflet. Aortic valve appears sclerotic. There is no hemodynamically significant stenosis. There is no evidence of aortic regurgitation. Mitral Valve: The mitral valve leaflets appear normal. There is no evidence of mitral stenosis. There is mild mitral regurgitation. Tricuspid Valve: The tricuspid valve leaflets are normal. There is no tricuspid stenosis. There is a trace tricuspid regurgitation. Pulmonic Valve: The pulmonic valve is not well visualized. There is no pulmonic stenosis. There is no evidence of pulmonic regurgitation. Pericardium: There is no pericardial effusion. Aorta: There is no dilatation of the aortic root. Venous: The inferior vena cava appears normal in size. There is a greater than 50% respiratory change in the inferior vena cava dimension. HR 78 BP 128/81 Measurements Chambers 2D Name Value Normal Range IVSd (2D) 0.8 cm none LVPWd (2D) 1.01 cm none IVS:LVPW ratio (2D) 0.79 ratio none LVIDd (2D) 4.27 cm none LVIDs (2D) 3.47 cm none LVIDd (2D) index 2.32 cm/m2 none LVIDs (2D) index 1.89 cm/m2 none Ao root diameter (2D) 3.5 cm none LA dimension (AP) 2D 3.8 cm none LA:Ao ratio (2D) 1.09 ratio none Aortic root diameter (2D) inde1.9 cm/m2 none LA dimension (2D) index 2.07 cm/m2 none Volumes/Mass Name Value Normal Range LA Area 2 CH 18.7 cm2 none LA Area 4 CH 14 cm2 none LA ESV SP 4CH (MOD) 39.3 ml none LA ESV SP 2CH (MOD) 55.5 ml none LA ESV BP (MOD) 50.5 ml none LA ESV BP (MOD) index 27.46 ml/m2 none LV EDV SP 4CH (MOD) 79.7 ml none LV ESV SP 4CH (MOD) 34.6 ml none LV EDV SP 2CH (MOD) 91.2 ml none LV ESV SP 2CH (MOD) 40.6 ml none LV EDV BP 89.1 ml none LV ESV BP 37.8 ml none LV EDV BP index 48.45 ml/m2 none LV ESV BP index 20.56 ml/m2 none LV mass (2D) 122.45 g none LV mass (2D) index 66.59 g/m2 none Diastolic/Systolic Function Name Value Normal Range MV E-wave Vmax 0.72 m/sec none MV deceleration time 313 msec none MV A-wave Vmax 0.9 m/sec none MV E:A ratio 0.79 ratio (1.1 - 1.5) LV E:e' septal ratio 8.5 ratio none LV E:e' lateral ratio 8.1 ratio none Aortic Valve Name Value Normal Range AV Vmax 1.23 m/sec (1 - 1.7) AV peak gradient 6.05 mmHg (Less Than 36) LVOT diameter 2 cm (1.7 - 2.5) LVOT Vmax 0.91 m/sec (0.7 - 1.1) LVOT peak gradient 3 mmHg none DOI (Vmax) 0.74 ratio none SWETA (continuity Vmax) 2.33 cm2 none SWETA (continuity Vmax) index 1.27 cm2/m2 none Electronically Signed at 01/10/2017 11:39:34 by: Karma Mcgovern DO, FACC, [facility] MR Cow/Carotids/Brain With A nd Without Contraston 01-10-2017 MR Cow/Carotids/Brain With And Without Contrast EXAMINATION: MRA COW/CAROTIDS/BRAIN WITH AND WITHOUT CONTRAST HISTORY: ORDERING SYSTEM PROVIDED HISTORY: TIA, TECHNOLOGIST PROVIDED HISTORY: Reason for exam: TIA Illness/Other Encounter Type: Subsequent/Follow-up Additional signs and symptoms: . ORDERING SYSTEM PROVIDED DIAGNOSIS CODES: G45.9 Transient cerebral ischemia, unspecified type COMPARISON: Head CT 01/09/2017. TECHNIQUE: Multiplanar, multisequence MRI images of the brain were obtained prior to and following the administration of intravenous gadolinium contrast. MR angiogram of the head was obtained with 3D bvld-gh-dlygvv technique. MR angiogram of the neck was obtained before and after the administration of contrast. Axial T2-weighted images through the neck were also obtained. Maximum intensity projection images of the MR angiogram studies were also obtained. Carotid stenosis is reported according to NASCET criteria. CONTRAST: GADOBENATE DIMEGLUMINE 529 MG/ML(0.1 MMOL/0.2 ML) INTRAVENOUS SOLUTION - 10 mL, IV. FINDINGS: MRI BRAIN: Punctate, mild diffusion hyperintensity at the medial left parietal and right frontal subcortical white matter. Multiple small T2 hyperintense foci in the white matter of the supratentorial brain. No pathologic contrast enhancement. Ventricles and sulci normal in size. No hydrocephalus. There is no mass effect, midline shift, or pathologic extraaxial fluid collections. The pituitary gland is not abnormally enlarged. There is no Chiari I malformation. The orbital apices are clear. The central intracranial flow voids of the [place] of [place] are visualized, implying that the vessels are patent. MRA NECK: There is no flow-limiting stenosis at the origins of the great vessels. The right carotid bulb is normal in appearance. There is no significant stenosis of the proximal right internal carotid artery by NASCET criteria. The left carotid bulb is normal in appearance. There is no significant stenosis of the proximal left internal carotid artery by NASCET criteria. There is no flow-limiting stenosis in the vertebral arteries. MRA HEAD: There are no segments of flow-limiting stenosis within the distal bilateral vertebral arteries, the basilar artery, and the proximal bilateral posterior cerebral arteries. There are no segments of flow-limiting stenosis within the distal bilateral internal carotid arteries, the bilateral proximal anterior cerebral arteries, and the bilateral proximal middle cerebral arteries. There is no abrupt vessel cutoff or intraluminal thrombus. Tiny, 1-2 mm vascular outpouching at the proximal cavernous left internal carotid artery, directed laterally. Please note that image quality is degraded secondary to motion artifact. [employer] [facility] MR Cow/Carotids/Brain With And Without Contrast 1. Punctate focus of diffusion hyperintensity in the left parietal and right frontal subcortical white matter. These could be volume-averaging artifact given the small size, with differential of subacute microvascular ischemic changes/microvascular infarcts. No acute infarction in the remaining brain. 2. Moderate chronic microvascular ischemia in the remaining supratentorial white matter for age. 3. The carotid bifurcations appear within normal limits. No stenosis of the proximal bilateral internal carotid arteries by NASCET criteria. 4. Vertebral artery origins are poorly visualized, which could be secondary to artifact or stenosis. No stenosis in the remaining segments of the bilateral vertebral arteries. 5. No flow-limiting stenosis in the central intracranial arteries of the sleetmute of [place]. 6. Equivocal, tiny, 1-2 mm aneurysm at the proximal cavernous left internal carotid artery versus artifact or an infundibulum. [employer] Workstation ID: [id number] [employer] [facility] MR Cow/Carotids/Brain With And Without Contrast Interface, Rad In [facility] Speechq - 01/10/2017 2:05 PM EDT EXAMINATION: MRA COW/CAROTIDS/BRAIN WITH AND WITHOUT CONTRAST HISTORY: ORDERING SYSTEM PROVIDED HISTORY: TIA, TECHNOLOGIST PROVIDED HISTORY: Reason for exam: TIA Illness/Other Encounter Type: Subsequent/Follow-up Additional signs and symptoms: . ORDERING SYSTEM PROVIDED DIAGNOSIS CODES: G45.9 Transient cerebral ischemia, unspecified type COMPARISON: Head CT 01/09/2017. TECHNIQUE: Multiplanar, multisequence MRI images of the brain were obtained prior to and following the administration of intravenous gadolinium contrast. MR angiogram of the head was obtained with 3D wabn-jk-zmwizk technique. MR angiogram of the neck was obtained before and after the administration of contrast. Axial T2-weighted images through the neck were also obtained. Maximum intensity projection images of the MR angiogram studies were also obtained. Carotid stenosis is reported according to NASCET criteria. CONTRAST: GADOBENATE DIMEGLUMINE 529 MG/ML(0.1 MMOL/0.2 ML) INTRAVENOUS SOLUTION - 10 mL, IV. FINDINGS: MRI BRAIN: Punctate, mild diffusion hyperintensity at the medial left parietal and right frontal subcortical white matter. Multiple small T2 hyperintense foci in the white matter of the supratentorial brain. No pathologic contrast enhancement. Ventricles and sulci normal in size. No hydrocephalus. There is no mass effect, midline shift, or pathologic extraaxial fluid collections. The pituitary gland is not abnormally enlarged. There is no Chiari I malformation. The orbital apices are clear. The central intracranial flow voids of the [place] of [place] are visualized, implying that the vessels are patent. MRA NECK: There is no flow-limiting stenosis at the origins of the great vessels. The right carotid bulb is normal in appearance. There is no significant stenosis of the proximal right internal carotid artery by NASCET criteria. The left carotid bulb is normal in appearance. There is no significant stenosis of the proximal left internal carotid artery by NASCET criteria. There is no flow-limiting stenosis in the vertebral arteries. MRA HEAD: There are no segments of flow-limiting stenosis within the distal bilateral vertebral arteries, the basilar artery, and the proximal bilateral posterior cerebral arteries. There are no segments of flow-limiting stenosis within the distal bilateral internal carotid arteries, the bilateral proximal anterior cerebral arteries, and the bilateral proximal middle cerebral arteries. There is no abrupt vessel cutoff or intraluminal thrombus. Tiny, 1-2 mm vascular outpouching at the proximal cavernous left internal carotid artery, directed laterally. Please note that image quality is degraded secondary to motion artifact. IMPRESSION: 1. Punctate focus of diffusion hyperintensity in the left parietal and right frontal subcortical white matter. These could be volume-averaging artifact given the small size, with differential of subacute microvascular ischemic changes/microvascular infarcts. No acute infarction in the remaining brain. 2. Moderate chronic microvascular ischemia in the remaining supratentorial white matter for age. 3. The carotid bifurcations appear within normal limits. No stenosis of the proximal bilateral internal carotid arteries by NASCET criteria. 4. Vertebral artery origins are poorly visualized, which could be secondary to artifact or stenosis. No stenosis in the remaining segments of the bilateral vertebral arteries. 5. No flow-limiting stenosis in the central intracranial arteries of the sleetm[place] of [place]. 6. Equivocal, tiny, 1-2 mm aneurysm at the proximal cavernous left internal carotid artery versus artifact or an infundibulum. [employer] Workstation ID: [id number] [facility] XR MR Eyeon 01-10-2017 XR MR Eye Interface, Rad In [facility] - 01/09/2017 11:01 PM EDT EXAMINATION: XR MR EYE HISTORY: ORDERING SYSTEM PROVIDED HISTORY: MRI clearance, TECHNOLOGIST PROVIDED HISTORY: Reason for exam: MRI clearance Illness/Other Cancer History: unknown Surgery, RadiationHistory: unknown Encounter Type: Unknown Additional signs and symptoms: unknown ORDERING SYSTEM PROVIDED DIAGNOSIS CODES: G45.9 Transient cerebral ischemia, unspecified type COMPARISON: CT earlier same day FINDINGS: No aberrant radiopaque foreign bodies in or adjacent to the orbits. IMPRESSION: No radiopaque foreign body seen Workstation ID: [id number] [facility] XR MR Eye EXAMINATION: XR MR E YE HISTORY: ORDERING SYSTEM PROVIDED HISTORY: MRI clearance, TECHNOLOGIST PROVIDED HISTORY: Reason for exam: MRI clearance Illness/Other Cancer History: unknown Surgery, RadiationHistory: unknown Encounter Type: Unknown Additional signs and symptoms: unknown ORDERING SYSTEM PROVIDED DIAGNOSIS CODES: G45.9 Transient cerebral ischemia, unspecified type COMPARISON: CT earlier same day FINDINGS: No aberrant radiopaque foreign bodies in or adjacent to the orbits. [employer] [facility] XR MR Eye No radiopaque foreig n body seen Workstation ID: [id number] [employer] [facility] Alcohol, Medicalon 7 Ethanol mass conc mg/dL <10.0 mg/dL [facility] Comment on above: Alcohol cutoff: <10.00 mg/dL = None Detected Interpretation and review of laboratory results Normal [facility] CBC Auto Differentialon Basophils #/vol (Bld) 0.09 K/mcL 0.00 - 0.[address] [facility] Basophils/100 WBC (Bld) 1.6 % [facility] Eosinophils #/vol (Bld) 0.81 K/mcL High 0.00 - 0.50 [facility] Eosinophils/100 WBC (Bld) 14.0 % [facility] Erythrocyte distribution width Entitic volume (RBC) 13.5 % 11.6 - 14.8 % [facility] Hematocrit Volume Fraction (Bld) 45.4 % 41 - 53 % [facility] Hemoglobin mass conc (Bld) 15.4 g/dL 13.5 - 17.5 g/dL [facility] Immature granulocytes #/vol (Bld) 0.01 K/mcL 0.00 - 0.30 [facility] Immature granulocytes/100 WBC (Bld) 0.20 % [facility] Comment on above: The IG parameter is the percentage of metamyelocytes, myelocytes, and promyelocytes. Lymphocytes #/vol (Bld) 1.94 K/mcL 0.90 - 4.00 [facility] Lymphocytes/100 WBC (Bld) 33.6 % [facility] MCH Entitic mass (RBC) 32.9 pg 26 - 34 pg [facility] MCHC mass conc (RBC) 33.9 g/dL 31 - 37 g/dL [facility] MCV Entitic volume (RBC) 97.0 fL 80 - 100 fL [facility] Monocytes #/vol (Bld) 0.54 K/mcL 0.30 - 0.90 [facility] Monocytes/100 WBC (Bld) 9.4 % [facility] Neutrophils #/vol (Bld) 2.38 K/mcL 1.70 - 7.00 [facility] Neutrophils/100 WBC (Bld) 41.2 % [facility] Nucleated RBC #/vol (Bld) 0.00 K/mcL 0.00 - 0.00 [facility] Nucleated RBC/100 WBC Ratio (Bld) 0.0 % [facility] Platelet mean volume Entitic volume (Bld) 9.4 fL 9 - 15.5 fL [facility] Platelets #/vol (Bld) 267 K/mcL 150 - 400 [facility] RBC #/vol (Bld) 4.68 M/mcL 4.50 - 5.90 [facility] WBC #/vol (Bld) 5.77 K/mcL 4.50 - 11.00 [facility] CBC w/ Diffon 01-09-2017 CBC w/ Diff The following orders were created for panel order CBC w/ Diff. Procedure Abnormality Status --------- ------ CBC Auto Differential[[id number]] Abnormal Final result Please view results for these tests on the individual orders. [employer] Work Phone: CMPon 01-09-2017 Albumin mass conc 3.9 g/dL 3.2 - 5.2 g/dL [facility] ALP enzyme act/vol 78 U/L 40 - 150 U/L [facility] ALT enzyme act/vol 12 U/L 0 - 40 U/L [facility] Anion gap molar conc 17 mmol/L 10 - 20 mmol/L [facility] AST enzyme act/vol 14 U/L 0 - 45 U/L [facility] Bilirubin mass conc 0.4 mg/dL 0 - 1.3 mg/dL [facility] Calcium mass conc 8.9 mg/dL 8.4 - 10.2 mg/dL [facility] Chloride molar conc 104 mmol/L 98 - 108 mmol/L [facility] Creatinine mass conc 0.75 mg/dL 0.5 - 1 .3 mg/dL [facility] GFR/1.73 sq M predicted among non-blacks MDRD vol rate/area (S/P/Bld) The eGFR should be used for monitoring renal function only and not for medication dosing. [facility] GFR/1.73 sq M.predicted CKD-EPI vol rate/area (S/P/Bld) 103 mL/min/1.73 m2 >=60 [facility] Glucose mass conc 79 mg/dL 65 - 99 mg/dL [facility] HCO3 molar conc 29 mmol/L 21 - 32 mmol/L [facility] Interpretation and review of laboratory results Abnormal [facility] Potassium molar conc 4.3 mmol/L 3.5 - 5 .1 mmol/L [facility] Protein mass conc 6.7 g/dL 6 - 8 g/dL [facility] Sodium molar conc 146 mmol/L High 135 - 145 mmol/L [facility] Urea nitrogen mass conc 14 mg/dL 8 - 25 mg/dL [facility] Urea nitrogen/Creatinine mass ratio 18.7 mg/mg 10.0 - 20.[address] [facility] [address] Head Without Contrast (St roke)on 01-09-2017 CT Head Without Contrast (Stroke) No acute intracranial abnormality. If there is persistent clinical concern for acute ischemia, consideration of further evaluation with MRI is suggested. Critical results were called by Dr. Juan Antonio Cole to Dr. MEKHI LEA on 01/09/2017 at 20:06. Workstation ID: [id number] [employer] [facility] CT Head Without Contrast (Stroke) Interface, Rad In [employer] [facility] - 01/09/2017 8:09 PM EDT EXAMINATION: CT HEAD WITHOUT CONTRAST (STROKE) HISTORY: LUE and L face numbness/weakness Reason for exam?:LUE and L face numbness/weakness Injury/Trauma or Illness?:Illness/Other COMPARISON: None available. TECHNIQUE: CT of the head was performed without contrast. Dose reduction techniques were achieved by using automated exposure control and/or adjustment of mA and/or kV according to patient size and/or use of iterative reconstruction technique. CONTRAST: None. FINDINGS: Age-appropriate brain volume. No mass effect or midline shift. Unremarkable ventricles, basal cisterns, and sulci. No intracranial hemorrhage or abnormal fluid collection. The lee-white differentiation appears preserved. Unremarkable orbits. Paranasal sinuses and temporal bone structures appear well aerated. Bony calvarium appears unremarkable. IMPRESSION: No acute intracranial abnormality. If there is persistent clinical concern for acute ischemia, consideration of further evaluation with MRI is suggested. Critical results were called by Dr. Juan Antonio Cole to Dr. MEKHI LEA on 01/09/2017 at 20:06. Workstation ID: [id number] [facility] CT Head Without Contrast (Stroke) EXAMINATION: CT HEAD WITHOUT CONTRAST (STROKE) HISTORY: LUE and L face numbness/weakness Reason for exam?:LUE and L face numbness/weakness Injury/Trauma or Illness?:Illness/Other COMPARISON: None available. TECHNIQUE: CT of the head was performed without contrast. Dose reduction techniques were achieved by using automated exposure control and/or adjustment of mA and/or kV according to patient size and/or use of iterative reconstruction technique. CONTRAST: None. FINDINGS: Age-appropriate brain volume. No mass effect or midline shift. Unremarkable ventricles, basal cisterns, and sulci. No intracranial hemorrhage or abnormal fluid collection. The lee-white differentiation appears preserved. Unremarkable orbits. Paranasal sinuses and temporal bone structures appear well aerated. Bony calvarium appears unremarkable. [facility] EKG 12-leadon 01-09-2017 Atrial Rate 79 BPM MUSE P [place] 77 degrees MUSE P-R Interval 164 ms MUSE Q-T Interval 376 ms MUSE QRS Duration 88 ms MUSE QTC Calculation (Bezet) 431 ms MUSE R [place] 67 degrees MUSE T [place] 76 degrees MUSE Ventricular Rate 79 BPM MUSE EKG 12-lead Poor data qualit y, interpretation may be adversely affected Normal sinus rhythm Nonspecific ST abnormality Confirmed by BRI BALDERAS MD ([id number]) on 01/10/2017 6:56:28 AM MUSE Hemoglobin A1con 01-09-2017 Average glucose Estimated from glycated hemoglobin mass conc (Bld) 103 mg/dL 68 - 126 mg/dL [facility] Hemoglobin A1c/Hemoglobin.total mass fraction (Bld) 5.2 % 4.2 - 6 % [facility] POC Glucoseon 01-09-2017 Glucose mass conc 94 mg/dL 65 - 99 mg/dL [employer] Work Phone: Interpretation and review of laboratory results Normal [employer] Work Phone: POC INRon 01-09-2017 INR Coag RelTime (Bld) 1.0 {INR} 0.8 - 1.1 [facility] PO[facility] Interpretation and review of laboratory results Normal [facility] LAB Troponinon 01-09-2017 Troponin T.cardiac mass conc ug/L <0.040 ng/mL [facility] XR Chest 1 Viewon 01-09-2017 XR Chest 1 View 1. No acute cardiopulmonary disease. 2. Bilateral healing posterolateral rib fractures. [employer] Workstation ID: [id number] [employer] [place] XR Chest 1 View Interface, Rad In [employer] - 01/09/2017 8:48 PM EDT EXAMINATION: XR CHEST PA/AP ADDITIONAL CLINICAL INFORMATION: cough COMPARISON: 06/27/2014. FINDINGS: Bilateral healing posterolateral rib fractures are noted. Cardiomediastinal silhouette and pulmonary vascularity are within normal limits. The lungs and the costophrenic angles are clear. IMPRESSION: 1. No acute cardiopulmonary disease. 2. Bilateral healing posterolateral rib fractures. [employer] Workstation ID: [id number] [employer] [place] XR Chest 1 View EXAMINATION: XR CHES T PA/AP ADDITIONAL CLINICAL INFORMATION: cough COMPARISON: 06/27/2014. FINDINGS: Bilateral healing posterolateral rib fractures are noted. Cardiomediastinal silhouette and pulmonary vascularity are within normal limits. The lungs and the costophrenic angles are clear. [employer] [place] Vital Signs Date Time Vital Sign Value Performing Clinician Faci lity 04-13-2025 11:01-0500 Body mass index (BMI) [Ratio] 20.85 kg/m2 Jihan Rodriguez MD Work Phone: [facility] 04-13-2025 11:01-0500 Body weight 71.67 kg Jihan Rodriguez MD Work Phone: [facility] 04-13-2025 11:01-0500 Diastolic blood pressure 89 mm[Hg] Jihan Rodriguez MD Work Phone: [facility] 04-13-2025 11:01-0500 Heart rate 99 /min Jihan Rodriguez MD Work Phone: [facility] 04-13-2025 11:01-0500 SaO2% (BldA) [Mass fraction] 95 % Jihan Rodriguez MD Work Phone: [facility] 04-13-2025 11:01-0500 Systolic blood pressure 129 mm[Hg] Jihan Rodriguez MD Work Phone: [facility] 03-14-2025 13:57-0400 Diastolic blood pressure 85 mm[Hg] Elijah Sanchez MD Work Phone: [facility] 03-14-2025 13:57-0400 Heart rate 92 /min Elijah Sanchez MD Work Phone: [facility] 03-14-2025 13:57-0400 Respiratory rate 18 /min Elijah Sanchez MD Work Phone: [facility] 03-14-2025 13:57-0400 Systolic blood pressure 131 mm[Hg] Elijah Sanchez MD Work Phone: [facility] 02-27-2025 13:26-0400 Body mass index (BMI) [Ratio] 22.03 kg/m2 Jihan Rodriguez MD Work Phone: [facility] 02-27-2025 13:26-0400 Body weight 75.75 kg Jihan Rodriguez MD Work Phone: [facility] 02-27-2025 13:26-0400 Diastolic blood pressure 65 mm[Hg] Jihan Rodriguez MD Work Phone: [facility] 02-27-2025 13:26-0400 Heart rate 100 /min Jihan Rodriguez MD Work Phone: [facility] 02-27-2025 13:26-0400 SaO2% (BldA) [Mass fraction] 94 % Jihan Rodriguez MD Work Phone: [facility] 02-27-2025 13:26-0400 Systolic blood pressure 104 mm[Hg] Jihan Rodriguez MD Work Phone: [facility] 02-01-2025 16:52-0400 Body temperature 98.1 [degF] Chalon Rosalva MD Work Phone: [facility] 02-01-2025 16:52-0400 Diastolic blood pressure 73 mm[Hg] Iker Blackwell MD Work Phone: [facility] 02-01-2025 16:52-0400 Heart rate 100 /min Iker Blackwell MD Work Phone: [facility] 02-01-2025 16:52-0400 Respiratory rate 22 /min Iker Blackwell MD Work Phone: [facility] 02-01-2025 16:52-0400 SaO2% (BldA) [Mass fraction] 94 % Iker Blackwell MD Work Phone: [facility] 02-01-2025 16:52-0400 Systolic blood pressure 103 mm[Hg] Iker Blackwell MD Work Phone: [facility] 02-01-2025 15:32-0400 Body height 185.42 cm Iker Blackwell MD Work Phone: [facility] 02-01-2025 15:32-0400 Body mass index (BMI) [Ratio] 22.5 kg/m2 Iker Blackwell MD Work Phone: [facility] 02-01-2025 15:32-0400 Body weight 77.4 kg Iker Blackwell MD Work Phone: [facility] 02-01-2025 15:32-0400 Inhaled oxygen flow rate 2 L/min Iker Blackwell MD Work Phone: [facility] 02-01-2025 11:28-0400 Diastolic blood pressure 88 mm[Hg] Elijah Sanchez MD Work Phone: [facility] 02-01-2025 11:28-0400 Heart rate 73 /min Elijah Sanchez MD Work Phone: [facility] 02-01-2025 11:28-0400 Systolic blood pressure 136 mm[Hg] Elijah Sanchez MD Work Phone: [facility] 11-11-2024 10:32-0400 Body mass index (BMI) [Ratio] 21.93 kg/m2 Jihan Wooten MD Work Phone: [facility] 11-11-2024 10:32-0400 Body weight 75.39 kg Jihan Wooten MD Work Phone: [facility] 11-11-2024 10:32-0400 Diastolic blood pressure 85 mm[Hg] Jihan Wooten MD Work Phone: [facility] 11-11-2024 10:32-0400 Heart rate 82 /min Jihan Wooten MD Work Phone: [facility] 11-11-2024 10:32-0400 Systolic blood pressure 143 mm[Hg] Jihan Wooten MD Work Phone: [facility] 10-28-2024 10:06-0400 Diastolic blood pressure 91 mm[Hg] Kvng Musico PA-C Work Phone: [facility] 10-28-2024 10:06-0400 Heart rate 109 /min Kvng Musico PA-C Work Phone: [facility] 10-28-2024 10:06-0400 Systolic blood pressure 135 mm[Hg] Kvng Musico PA-C Work Phone: [facility] 10-28-2024 09:47-0400 Body temperature 99.9 [degF] Kvng Musico PA-C Work Phone: [facility] 08-18-2024 11:09-0400 Body temperature 97.8 [degF] Iker Blackwell MD Work Phone: [facility] 08-18-2024 11:09-0400 Diastolic blood pressure 73 mm[Hg] Iker Blackwell MD Work Phone: [facility] 08-18-2024 11:09-0400 Heart rate 97 /min Iker Blackwell MD Work Phone: [facility] 08-18-2024 11:09-0400 Respiratory rate 20 /min Iker Blackwell MD Work Phone: [facility] 08-18-2024 11:09-0400 SaO2% (BldA) [Mass fraction] 97 % Iker Blackwell MD Work Phone: [facility] 08-18-2024 11:09-0400 Systolic blood pressure 110 mm[Hg] Iker Blackwell MD Work Phone: [facility] 08-18-2024 10:02-0400 Body height 185.42 cm Iker Blackwell MD Work Phone: [facility] 08-18-2024 10:02-0400 Body mass index (BMI) [Ratio] 19.5 kg/m2 Iker Blackwell MD Work Phone: [facility] 08-18-2024 10:02-0400 Body weight 67.13 kg Iker Blackwell MD Work Phone: [facility] 08-18-2024 10:02-0400 Inhaled oxygen flow rate 2 L/min Iker Blackwell MD Work Phone: [facility] 07-05-2024 09:19-0500 Diastolic blood pressure 86 mm[Hg] Iker Blackwell MD Work Phone: [facility] 07-05-2024 09:19-0500 Heart rate 78 /min Iker Blackwell MD Work Phone: [facility] 07-05-2024 09:19-0500 Respiratory rate 18 /min Iker Blackwell MD Work Phone: [facility] 07-05-2024 09:19-0500 Systolic blood pressure 137 mm[Hg] Iker Blackwell MD Work Phone: [facility] 07-05-2024 07:20-0500 Body height 185.42 cm Iker Blackwell MD Work Phone: [facility] 07-05-2024 07:20-0500 Body mass index (BMI) [Ratio] 21.9 kg/m2 Iker Blackwell MD Work Phone: [facility] 07-05-2024 07:20-0500 Body temperature 98.1 [degF] Iker Blackwell MD Work Phone: [facility] 07-05-2024 07:20-0500 Body weight 75.5 kg Iker Blackwell MD Work Phone: [facility] 07-05-2024 07:20-0500 Inhaled oxygen flow rate 3 L/min Iker Blackwell MD Work Phone: [facility] 07-05-2024 07:20-0500 SaO2% (BldA) [Mass fraction] 95 % Iker Blackwell MD Work Phone: [facility] 06-02-2024 19:51-0500 Diastolic blood pressure 101 mm[Hg] Iker Blackwell MD Work Phone: 4(120)598-002930 [place] [address] 06-02-2024 19:51-0500 Systolic blood pressure 152 mm[Hg] Iker Blackwell MD Work Phone: [facility] 06-02-2024 19:48-0500 Body temperature 97.9 [degF] Iker Blackwell MD Work Phone: [facility] 06-02-2024 19:48-0500 Heart rate 105 /min Iker Blackwell MD Work Phone: [facility] 06-02-2024 19:48-0500 Respiratory rate 17 /min Iker Blackwell MD Work Phone: [facility] 06-02-2024 19:48-0500 SaO2% (BldA) [Mass fraction] 97 % Iker Blackwell MD Work Phone: [facility] 06-02-2024 19:45-0500 Inhaled oxygen flow rate 3 L/min Iker Blackwell MD Work Phone: [facility] 06-02-2024 18:51-0500 Body mass index (BMI) [Ratio] 21.5 kg/m2 Iker Blackwell MD Work Phone: [facility] 06-02-2024 18:51-0500 Body weight 74.1 kg Iker Blackwell MD Work Phone: [facility] 05-31-2024 07:00-0500 Diastolic blood pressure 76 mm[Hg] Iker Blackwell MD Work Phone: [facility] 05-31-2024 07:00-0500 Heart rate 101 /min Iker Blackwell MD Work Phone: 1(722)337-081430 [place] [address] 05-31-2024 07:00-0500 Respiratory rate 16 /min Iker Blackwell MD Work Phone: 1(071)104-424030 [place] [address] 05-31-2024 07:00-0500 SaO2% (BldA) [Mass fraction] 98 % kIer Blackwell MD Work Phone: 1(229)415-974930 [place] [address] 05-31-2024 07:00-0500 Systolic blood pressure 128 mm[Hg] Iker Blackwell MD Work Phone: 8(528)250-646230 [place] [address] 05-31-2024 06:42-0500 Body temperature 98.4 [degF] Iker Blackwell MD Work Phone: 4(688)083-299930 [place] [address] 05-31-2024 06:00-0500 Inhaled oxygen flow rate 2.5 L/min Iker Blackwell MD Work Phone: 1(400)874-907930 [place] [address] 05-30-2024 23:18-0500 Body mass index (BMI) [Ratio] 20.7 kg/m2 Iker Blackwell MD Work Phone: [facility] 05-30-2024 23:18-0500 Body weight 71.3 kg Iker Blackwell MD Work Phone: 0(596)926-723030 [place] [address] 05-23-2024 12:02-0500 Body temperature 98.3 [degF] Iker Blackwell MD Work Phone: [facility] 05-23-2024 12:02-0500 Diastolic blood pressure 87 mm[Hg] Iker Blackwell MD Work Phone: 3(536)664-064930 [place] [address] 05-23-2024 12:02-0500 Heart rate 101 /min Iker Blackwell MD Work Phone: [facility] 05-23-2024 12:02-0500 Respiratory rate 18 /min Iker Blackwell MD Work Phone: [facility] 05-23-2024 12:02-0500 SaO2% (BldA) [Mass fraction] 93 % Iker Blackwell MD Work Phone: [facility] 05-23-2024 12:02-0500 Systolic blood pressure 152 mm[Hg] Iker Blackwell MD Work Phone: [facility] 05-23-2024 07:59-0500 Inhaled oxygen flow rate 2 L/min Iker Blackwell MD Work Phone: [facility] 05-20-2024 23:34-0500 Body mass index (BMI) [Ratio] 20.2 kg/m2 Iker Blackwell MD Work Phone: [facility] 05-20-2024 23:34-0500 Body weight 69.7 kg Iker Blackwell MD Work Phone: [facility] 05-18-2024 15:17-0500 Heart rate 109 /min Iker Blackwell MD Work Phone: [facility] 05-18-2024 15:17-0500 Respiratory rate 18 /min Iker Blackwell MD Work Phone: [facility] 05-18-2024 14:49-0500 Body weight 68.4 kg Iker Blackwell MD Work Phone: [facility] 05-18-2024 14:00-0500 Body temperature 98.1 [degF] Iker Blackwell MD Work Phone: [facility] 05-18-2024 14:00-0500 Inhaled oxygen flow rate 2 L/min Iker Blackwell MD Work Phone: [facility] 05-18-2024 14:00-0500 SaO2% (BldA) [Mass fraction] 96 % Iker Blackwell MD Work Phone: [facility] 05-18-2024 13:50-0500 Diastolic blood pressure 87 mm[Hg] Iker Blackwell MD Work Phone: [facility] 05-18-2024 13:50-0500 Systolic blood pressure 117 mm[Hg] Iker Blackwell MD Work Phone: [facility] 05-17-2024 21:26-0500 Body mass index (BMI) [Ratio] 19.8 kg/m2 Iker Blackwell MD Work Phone: [facility] 11-04-2023 13:44-0400 Body height 188 cm Teresa Gay MD, PhD Work Phone: [facility] 11-04-2023 13:44-0400 Body mass index (BMI) [Ratio] 18.54 kg/m2 Teresa Gay MD, PhD Work Phone: [facility] 11-04-2023 13:44-0400 Body weight 65.5 kg Teresa Gay MD, PhD Work Phone: [facility] 11-04-2023 13:44-0400 Diastolic blood pressure 66 mm[Hg] Teresa Gay MD, PhD Work Phone: [facility] 11-04-2023 13:44-0400 Heart rate 99 /min Teresa Gay MD, PhD Work Phone: [facility] 11-04-2023 13:44-0400 Respiratory rate 20 /min Teresa Gay MD, PhD Work Phone: [facility] 11-04-2023 13:44-0400 SaO2% (BldA) [Mass fraction] 92 % Teresa Gay MD, PhD Work Phone: [facility] 11-04-2023 13:44-0400 Systolic blood pressure 126 mm[Hg] Teresa Gay MD, PhD Work Phone: [facility] 10-31-2023 10:02-0400 Body temperature 98.4 [degF] Reji Al MD Work Phone: [facility] 10-31-2023 10:02-0400 Diastolic blood pressure 68 mm[Hg] Reji Al MD Work Phone: [facility] 10-31-2023 10:02-0400 Heart rate 94 /min Reji Al MD Work Phone: [facility] 10-31-2023 10:02-0400 Respiratory rate 18 /min Reji Al MD Work Phone: [facility] 10-31-2023 10:02-0400 SaO2% (BldA) [Mass fraction] 97 % Reji Al MD Work Phone: 7(707)120-523050 [address] 10-31-2023 10:02-0400 Systolic blood pressure 118 mm[Hg] Reji Al MD Work Phone: [facility] 10-29-2023 22:28-0400 Body height 188 cm Reji Al MD Work Phone: [facility] 10-29-2023 22:28-0400 Body mass index (BMI) [Ratio] 18.09 kg/m2 Reji Al MD Work Phone: [facility] 10-29-2023 22:28-0400 Body weight 63.91 kg Reji Al MD Work Phone: [facility] 10-27-2023 14:00-0400 Respiratory rate 18 /min Flores Hess DO Work Phone: [facility] 10-26-2023 23:22-0400 Diastolic blood pressure 68 mm[Hg] Flores Hess DO Work Phone: [facility] 10-26-2023 23:22-0400 Heart rate 109 /min Christopher Buchsieb DO Work Phone: [facility] 10-26-2023 23:22-0400 SaO2% (BldA) [Mass fraction] 92 % Flores Perazasieb DO Work Phone: [facility] 10-26-2023 23:22-0400 Systolic blood pressure 109 mm[Hg] Flores Perazasieb DO Work Phone: [facility] 10-26-2023 15:54-0400 Body temperature 97.81 [degF] Flores Perazasieb DO Work Phone: [facility] 10-25-2023 18:26-0400 Body mass index (BMI) [Ratio] 21.11 kg/m2 Flores Perazasieb DO Work Phone: [facility] 10-25-2023 18:26-0400 Body weight 72.58 kg Flores Cheryeb DO Work Phone: [facility] 10-02-2023 14:32-0400 Body height 185.4 cm Ivonne Henry MD Work Phone: [facility] 10-02-2023 14:32-0400 Body mass index (BMI) [Ratio] 18.07 kg/m2 Ivonne Henry MD Work Phone: [facility] 10-02-2023 14:32-0400 Body temperature 97.7 [degF] Ivonne Henry MD Work Phone: [facility] 10-02-2023 14:32-0400 Body weight 62.14 kg Ivonne Henry MD Work Phone: [facility] 10-02-2023 14:32-0400 Diastolic blood pressure 64 mm[Hg] Ivonne Henry MD Work Phone: [facility] 10-02-2023 14:32-0400 Heart rate 91 /min Ivonne Henry MD Work Phone: [facility] 10-02-2023 14:32-0400 SaO2% (BldA) [Mass fraction] 93 % Ivonne Henry MD Work Phone: [facility] 10-02-2023 14:32-0400 Systolic blood pressure 108 mm[Hg] Ivonne Henry MD Work Phone: [facility] 08-21-2021 07:38-0400 Body temperature 98.2 [degF] [facility] Work Phone: [facility] 08-21-2021 07:38-0400 Diastolic blood pressure 82 mm[Hg] [facility] Work Phone: [facility] 08-21-2021 07:38-0400 Heart rate 93 /min [facility] Work Phone: [facility] 08-21-2021 07:38-0400 Respiratory rate 15 /min [facility] Work Phone: [facility] 08-21-2021 07:38-0400 SaO2% (BldA) [Mass fraction] 94 % [facility] Work Phone: [facility] 08-21-2021 07:38-0400 Systolic blood pressure 142 mm[Hg] [facility] Work Phone: [facility] 08-05-2021 11:53-0500 Body height 185.4 cm Elpidio Degenova DO Work Phone: [facility] 08-05-2021 11:53-0500 Body mass index (BMI) [Ratio] 19.79 kg/m2 Elpidio Degenova DO Work Phone: [facility] 08-05-2021 11:53-0500 Body weight 68.04 kg Elpidio Degenova DO Work Phone: [facility] 06-25-2021 13:33-0500 Body height 185.4 cm Janusz Myrick PA-C Work Phone: [facility] 06-25-2021 13:33-0500 Body mass index (BMI) [Ratio] 19.79 kg/m2 Janusz Myrick PA-C Work Phone: [facility] 06-25-2021 13:33-0500 Body weight 68.04 kg Janusz Myrick PA-C Work Phone: [facility] 03-15-2021 09:53-0400 Body height 185.4 cm Teresa Terry MD Work Phone: [facility] 03-15-2021 09:53-0400 Body mass index (BMI) [Ratio] 18.34 kg/m2 Teresa Terry MD Work Phone: [facility] 03-15-2021 09:53-0400 Body weight 63.05 kg Teresa Terry MD Work Phone: [facility] 02-15-2021 10:14-0400 Body height 186.7 cm Teresa Terry MD Work Phone: [facility] 02-15-2021 10:14-0400 Body mass index (BMI) [Ratio] 20.43 kg/m2 Teresa Terry MD Work Phone: [facility] 02-15-2021 10:14-0400 Body weight 71.22 kg Teresa Terry MD Work Phone: [facility] 02-08-2021 08:46-0400 Body height 186.7 cm Jihan Orozco PA-C Work Phone: [facility] 02-08-2021 08:46-0400 Body mass index (BMI) [Ratio] 20.43 kg/m2 Jihan Orozco PA-C Work Phone: [facility] 02-08-2021 08:46-0400 Body weight 71.22 kg Jihan Orozco PA-C Work Phone: [facility] 01-22-2021 09:56-0400 Body temperature 98.4 [degF] Michelle Lindsey CNP Work Phone: [facility] 01-22-2021 09:56-0400 Diastolic blood pressure 80 mm[Hg] Michelle Forder OBJECT ORIENTED PROGRAMMER Work Phone: [facility] 01-22-2021 09:56-0400 Heart rate 89 /min Michelle Lindsey OBJECT ORIENTED PROGRAMMER Work Phone: [facility] 01-22-2021 09:56-0400 Respiratory rate 18 /min Michelle Lindsey OBJECT ORIENTED PROGRAMMER Work Phone: [facility] 01-22-2021 09:56-0400 SaO2% (BldA) [Mass fraction] 91 % Michelle Lindsey OBJECT ORIENTED PROGRAMMER Work Phone: [facility] 01-22-2021 09:56-0400 Systolic blood pressure 129 mm[Hg] Michelle Forder OBJECT ORIENTED PROGRAMMER Work Phone: [facility] 01-14-2021 12:25-0400 Body height 186.7 cm Harpal Nieto MD Work Phone: [facility] 01-14-2021 12:25-0400 Body mass index (BMI) [Ratio] 20.43 kg/m2 Harpal Nieto MD Work Phone: [facility] 01-14-2021 12:25-0400 Body temperature 98.2 [degF] Harpal Nieto MD Work Phone: [facility] 01-14-2021 12:25-0400 Body weight 71.22 kg Harpal Nieto MD Work Phone: [facility] 01-14-2021 12:25-0400 Diastolic blood pressure 87 mm[Hg] Harpal Nieto MD Work Phone: [facility] 01-14-2021 12:25-0400 Heart rate 84 /min Harpal Nieto MD Work Phone: [facility] 01-14-2021 12:25-0400 SaO2% (BldA) [Mass fraction] 97 % Harpal Nieto MD Work Phone: [facility] 01-14-2021 12:25-0400 Systolic blood pressure 140 mm[Hg] Harpal Nieto MD Work Phone: [facility] 12-13-2020 15:04-0400 Diastolic blood pressure 86 mm[Hg] Ugo Ochoa MD Work Phone: [facility] 12-13-2020 15:04-0400 Heart rate 80 /min Ugo Ochoa MD Work Phone: [facility] 12-13-2020 15:04-0400 SaO2% (BldA) [Mass fraction] 96 % Ugo Ochoa MD Work Phone: [facility] 12-13-2020 15:04-0400 Systolic blood pressure 123 mm[Hg] Ugo Ochoa MD Work Phone: [facility] 12-13-2020 13:46-0400 Body height 185.4 cm Ugo Ochoa MD Work Phone: [facility] 12-13-2020 13:46-0400 Body mass index (BMI) [Ratio] 21.51 kg/m2 Ugo Ochoa MD Work Phone: [facility] 12-13-2020 13:46-0400 Body temperature 97.9 [degF] Ugo Ochoa MD Work Phone: [facility] 12-13-2020 13:46-0400 Body weight 73.94 kg Ugo Ochoa MD Work Phone: [facility] 12-13-2020 13:46-0400 Respiratory rate 19 /min Ugo Ochoa MD Work Phone: [facility] 10-03-2020 22:50-0400 Diastolic blood pressure 87 mm[Hg] Chontelle Degler DO Work Phone: [facility] 10-03-2020 22:50-0400 Heart rate 101 /min Chontelle Degler DO Work Phone: [facility] 10-03-2020 22:50-0400 SaO2% (BldA) [Mass fraction] 96 % Chontelle Degler DO Work Phone: [facility] 10-03-2020 22:50-0400 Systolic blood pressure 126 mm[Hg] Chontelle Degler DO Work Phone: [facility] 10-03-2020 19:10-0400 Body height 185.4 cm Chontelle Degler DO Work Phone: [facility] 10-03-2020 19:10-0400 Body mass index (BMI) [Ratio] 19.79 kg/m2 Chontelle Degler DO Work Phone: [facility] 10-03-2020 19:10-0400 Body temperature 99.5 [degF] Chontelle Degler DO Work Phone: [facility] 10-03-2020 19:10-0400 Body weight 68.04 kg Chontelle Degler DO Work Phone: [facility] 10-03-2020 19:10-0400 Respiratory rate 18 /min Chontelle Degler DO Work Phone: [facility] 09-21-2020 14:59-0400 Heart rate 93 /min Ugo Ochoa MD Work Phone: [facility] 09-21-2020 14:59-0400 Respiratory rate 17 /min Ugo Ochoa MD Work Phone: [facility] 09-21-2020 13:46-0400 Diastolic blood pressure 93 mm[Hg] Ugo Ochoa MD Work Phone: [facility] 09-21-2020 13:46-0400 Systolic blood pressure 122 mm[Hg] Ugo Ochoa MD Work Phone: [facility] 09-21-2020 11:20-0400 Body temperature 98.01 [degF] Ugo Ochoa MD Work Phone: [facility] 09-21-2020 11:20-0400 SaO2% (BldA) [Mass fraction] 96 % Ugo Ochoa MD Work Phone: [facility] 08-13-2020 11:20-0500 Body Temperature 99 [degF] [facility] 08-13-2020 11:20-0500 BP Diastolic 87 mm[Hg] [facility] 08-13-2020 11:20-0500 BP Systolic 161 mm[Hg] [facility] 08-13-2020 11:20-0500 Pulse (Heart Rate) 107 /min [facility] 08-13-2020 11:20-0500 Pulse Oximetry 93 % [facility] 08-13-2020 11:20-0500 Respiratory Rate 16 /min [facility] 08-12-2020 02:22-0500 BMI (Body Mass Index) 21.26 kg/m2 [facility] 08-12-2020 02:22-0500 Body weight 75.1 kg [facility] 08-09-2020 04:12-0500 Height 188 cm [facility] 07-26-2020 13:16-0500 Body Temperature 99 [degF] [facility] 07-26-2020 13:16-0500 BP Diastolic 108 mm[Hg] [facility] 07-26-2020 13:16-0500 BP Systolic 171 mm[Hg] [facility] 07-26-2020 13:16-0500 Pulse (Heart Rate) 98 /min [facility] 07-26-2020 13:16-0500 Pulse Oximetry 97 % [facility] 07-26-2020 13:16-0500 Respiratory Rate 18 /min [facility] 07-26-2020 11:16-0500 Body Temperature 98.6 [degF] [facility] 07-26-2020 11:16-0500 BP Diastolic 79 mm[Hg] [facility] 07-26-2020 11:16-0500 BP Systolic 132 mm[Hg] [facility] 07-26-2020 11:16-0500 Pulse (Heart Rate) 106 /min [facility] 07-26-2020 11:16-0500 Pulse Oximetry 94 % [facility] 07-26-2020 11:16-0500 Respiratory Rate 16 /min [facility] 07-25-2020 15:29-0500 BMI (Body Mass Index) 18.62 kg/m2 [facility] 15:29-0500 Body weight 65.77 [facility] 07-25-2020 15:29-0500 Height 188 cm [place] [facility] 07-20-2020 08:42-0500 BMI (Body Mass Index) 19.13 kg/m2 Max Wright [facility] 07-20-2020 08:42-0500 Body Temperature 99.81 [degF] Max Adriana [facility] 07-20-2020 08:42-0500 Body weight 65.77 kg Max Adriana [facility] 07-20-2020 08:42-0500 BP Diastolic 71 mm[Hg] [facility] 07-20-2020 08:42-0500 BP Systolic 114 mm[Hg] [facility] 07-20-2020 08:42-0500 Height 185.4 cm [facility] 07-20-2020 08:42-0500 [facility] ([facility] 117 /[facility] 08:42-[facility]00 [facility] 07-19-2020 15:37-0500 Respiratory Rate 16 /min [facility] 07-19-2020 12:06-0500 Body Temperature 98.2 [degF] [facility] 12:06-0500 BP Di[facility] 96 mm[facility]Hg[facility] 12:06-0500 BP Systolic 157 mm[Hg[facility] 07-[facility] 12:06-0500 Pulse (Heart Rate) 90 /min [facility] 07-19-2020 12:06-0500 Pulse [facility] 94 % [facility] 07-19-2020 08:54-0500 BMI (Body Mass Index) 19.13 kg/m2 [facility] 07-19-2020 08:54-0500 [facility] 07-19-2020 08:54-0500 Height 185.4 cm [facility] 07-10-2020 09:29-0500 BP Diastolic 114 mm[Hg] Ugo Ochoa [facility] 07-10-2020 09:29-0500 BP Systolic 151 mm[Hg] Ugo Ochoa [facility] 07-10-2020 09:29-0500 Pulse (Heart Rate) 100 /min Ugo Ochoa [facility] 07-10-2020 09:29-0500 Pulse Oximetry 100 % Ugo Ochoa [facility] 07-10-2020 09:29-0500 Respiratory Rate 14 /min Ugo Ochoa [facility] 07-10-2020 09:27-0500 Body Temperature 98.1 [degF] Ugo Ochoa [facility] 07-05-2020 19:35-0500 BP Diastolic 91 mm[Hg] Angelika Rebolledo [facility] 07-05-2020 19:35-0500 BP Systolic 130 mm[Hg] Angelika Rebolledo [facility] 07-05-2020 19:35-0500 Pulse (Heart Rate) 96 /min Angelika Rebolledo [facility] 07-05-2020 19:35-0500 Pulse Oximetry 93 % Angelika Rebolledo [facility] 07-05-2020 19:35-0500 Respiratory Rate 18 /min Angelika Rebolledo [facility] 07-05-2020 14:40-0500 Body Temperature 98.6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 esophagitis; Primary osteoarthritis of right hip; Thoracic aortic aneurysm, without rupture (HCC); TIA (transient ischemic attack); History of thoracoabdominal aortic aneurysm (TAAA); Tobacco Abuse; Opioid use disorder (HCC); Crack Cocaine Use Start: 06-15-2020 End: 06-15-2020 Orders Only Radrew Perla Work Phone: [facility] Comment on above: Hydrocele, unspecifi ed hydrocele type (Primary Dx); Epididymal cyst Start: 06-14-2020 End: 06-14-2020 Telemedicine consultation with patient Michelle Lindsey Work Phone: [facility] Comment on above: Chronic obstructive pulmonary disease, unspecified COPD type (HCC) (Primary Dx); Multifocal pneumonia; Tobacco use; History of drug use Start: 05-28-2020 End: 05-28-2020 Emergency department patient visit Heriberto Billings Work Phone: [facility] Emergency Department Comment on above: Acute exacerbation o f chronic obstructive pulmonary disease (COPD) (HCC) (Primary Dx); Tachycardia Start: 05-21-2020 End: 05-21-2020 Office outpatient visit 5 minutes Leonardo Perla Work Phone: [facility] Comment on above: Hydrocele, unspecifi ed hydrocele type (Primary Dx) Start: 04-13-2020 End: 04-21-2020 Evaluation and management of inpatient Carlynn Nayeli Fulp Work Phone: [facility] General Medicine Comment on above: Hypoxia (Primary Dx) ; Non-intractable vomiting with nausea, unspecified vomiting type; Chest pain, unspecified type; Hypokalemia; Pneumonia due to infectious organism, unspecified laterality, unspecified part of lung; Multifocal pneumonia; Sepsis, due to unspecified organism, unspecified whether acute organ dysfunction present (HCC); Acute respiratory failure with hypoxia (HCC); COPD exacerbation (HCC); Chest pain, atypical; Nausea and vomiting, intractability of vomiting not specified, unspecified vomiting type; Cigarette nicotine dependence without complication; Cocaine use disorder (HCC) Start: 04-11-2020 End: 04-12-2020 Emergency department patient visit Maxime Liz Work Phone: [facility] Rapid Diagnosis Comment on above: COPD exacerbation (H CC) (Primary Dx); Cough; SOB (shortness of breath); Bilateral hip pain Start: 03-19-2020 End: 03-19-2020 Subsequent hospital visit by physician García Gunn Work Phone: [facility] Diagnostics Comment on above: COPD with acute exac erbation (HCC) Start: 02-03-2020 End: 02-03-2020 Documentation procedure Leonardo Perla Work Phone: [facility] Start: 01-17-2020 End: 01-17-2020 Office outpatient new 30 minutes Leonardo Perla Work Phone: [facility] [place] Comment on above: Bilateral inguinal h ernia without obstruction or gangrene, recurrence not specified Start: 01-14-2020 End: 01-14-2020 Emergency department patient visit Teresa Anderson Work Phone: [facility] Emergency Department Comment on above: SOB (shortness of br eath) (Primary Dx); COPD exacerbation (HCC); Smoker Start: 01-02-2020 End: 01-02-2020 Office outpatient new 45 minutes Karma Mark Work Phone: [facility] Comment on above: Bilateral inguinal h ernia without obstruction or gangrene, recurrence not specified (Primary Dx); Epididymal cyst Start: 12-29-2019 End: 12-29-2019 Subsequent hospital visit by physician Karma Mark Work Phone: [facility] Diagnostics Comment on above: Trouble breathing; Chest pain, unspecified type Start: 12-13-2019 End: 12-13-2019 Admission to abdoul Gunn [facility] Start: 12-12-2019 End: 12-12-2019 Subsequent hospital visit by physician Teresa Merino Work Phone: [facility] Comment on above: Primary osteoarthrit is of right hip Start: 12-12-2019 End: 12-12-2019 Office outpatient new 30 minutes Teresa Merino Work Phone: [facility] Comment on above: Primary osteoarthrit is of right hip Start: 11-02-2019 End: 11-03-2019 Emergency department patient visit Angelika Oswald Work Phone: [facility] Rapid Diagnosis Comment on above: Chest pain, unspecif ied type (Primary Dx); Syncope and collapse Start: 11-02-2019 End: 11-02-2019 Subsequent hospital visit by physician Karma Mark Work Phone: [facility] Comment on above: Retention of urine, unspecified Start: 10-21-2019 End: 10-21-2019 Subsequent hospital visit by physician Karma Mark Work Phone: [facility] Comment on above: Testicle swelling Start: 08-17-2019 End: 08-17-2019 Subsequent hospital visit by physician García Gunn Work Phone: [facility] Diagnostics Comment on above: Chronic right hip pa in Start: 08-11-2019 End: 08-11-2019 Emergency department patient visit Maxime Liz Work Phone: [facility] Emergency Department Comment on above: Acute exacerbation o f chronic obstructive pulmonary disease (COPD) (HCC) (Primary Dx) Start: 08-04-2019 End: 08-04-2019 Subsequent hospital visit by physician García Gunn Work Phone: [facility] Diagnostics Comment on above: SOB (shortness of br eath) on exertion Start: 01-09-2018 End: 01-10-2018 Emergency department patient visit Elijah Max Reis Work Phone: [facility] Emergency Department Start: 12-29-2017 End: 12-29-2017 Office outpatient visit 40 minutes Marj Tejada Work Phone: [facility] Start: 12-21-2017 Patient encounter [facility] Start: 12-13-2017 End: 12-15-2017 Emergency department patient visit Lashawn Capone Work Phone: [facility] Rapid Diagnosis [place] Start: 01-09-2017 End: 01-10-2017 Emergency department patient visit Mekhi Lea Work Phone: [facility] Medical Observation Comment on above: Transient cerebral i schemia, unspecified type (Primary Dx) Procedures Date Procedure Procedure Detail Performing Clinician Start: 04-13-2025 RADIATION THERAPY - UNVERIFIED DATA IMPORTED FROM [employer] Treatment Results Radiation Oncology Start: 02-27-2025 PSA screening IVONNE HENRY Comment on above: Result Comment: Per the National Compreh ensive Cancer Network (NCCN) Guidelines: . PSA> 3.0 ng/ml is positive regardless of age . PSA normal values are based upon a patient with a normal Digital Rectal Exam (SCOTT). A SCOTT suspicious for cancer at any PSA level is an indication for biopsy. . Any serum PSA level in a patient previously treated for prostate cancer should be interpreted with caution. Assay performed by [facility] [facility], Electrochemiluminescence Immunoassay. Patient results determined by assays using different instrumentation may not be comparable. Performed By: #### [id number] #### [facility] [address] [address] Refugio Nunez M.D. [id number] Start: 02-01-2025 Estimated creatinine clearance Iker leal MD Work Phone: Start: 02-01-2025 Us guidance needle placement img s&i Elijah Sanchez MD Work Phone: Start: 11-23-2024 Free prostate specific antigen level Iker Blackwell MD Work Phone: Comment on above: [employer] methodology. Start: 11-23-2024 Prostate specific antigen measurement Iker Blackwell MD Work Phone: Comment on above: [employer] methodology.According to the [place] [employer], Serum PSAshould decrease and remain at undetectable levels afterradical prostatectomy. The AUA defines biochemicalrecurrence as an initial PSA value 0.200 ng/mL or greaterfollowed by a subsequent confirmatory PSA value 0.200 ng/mLor greater. Values obtained with different assay methods orkits cannot be used interchangeably. Results cannot beinterpreted as absolute evidence of the presence or absenceof malignant disease. Start: 10-28-2024 MEASURE POST VOID RESIDUAL Kvng Escoto PA-C Work Phone: Start: 10-28-2024 Urnls dip stick/tablet rgnt auto w/o microscopy Kvng Escoto PA-C Work Phone: Start: 09-21-2024 Ultrasound of scrotum with Doppler and color flow imaging Iker Blackwell MD Work Phone: Start: 08-10-2024 Cardiovascular stress test using pharmacologic stress agent Iker Blackwell MD Work Phone: Start: 07-21-2024 X-ray of chest, PA and lateral views Iker Blackwell MD Work Phone: Start: 07-05-2024 Computed tomography of abdomen and pelvis with intravenous contrast Iker Blackwell MD Work Phone: Start: 05-31-2024 Computed tomography of abdomen and pelvis with intravenous contrast Iker Blackwell MD Work Phone: Start: 05-31-2024 CT angiography of chest with contrast Iker Blackwell MD Work Phone: Start: 05-31-2024 Blood culture Iker Blackwell MD Work Phone: Start: 05-31-2024 Urine culture Iker Blackwell MD Work Phone: Start: 05-30-2024 Blood culture Iker Blackwell MD Work Phone: Start: 05-30-2024 SARS-CoV-2, Influenza & RSV (PCR) Iker Blackwell MD Work Phone: Start: 05-21-2024 Gram stain microscopy Iker Blackwell MD Work Phone: Start: 05-21-2024 Respiratory microbial culture Iker solis MD Work Phone: Start: 05-20-2024 Plain chest X-ray Iker Blackwell MD Work Phone: Start: 05-17-2024 Plain chest X-ray Iker Blackwell MD Work Phone: Start: 05-17-2024 Blood culture Iker Blackwell MD Work Phone: Start: 05-17-2024 Gram stain microscopy Iker Blackwell MD Work Phone: Start: 05-17-2024 Respiratory microbial culture Iker solis MD Work Phone: Start: 05-17-2024 SARS-CoV-2, Influenza & RSV (PCR) Iker Blackwell MD Work Phone: Start: 10-31-2023 Assay of magnesium Mirta Warren MD Work Phone: Start: 10-30-2023 Blood gases any combination ph pco2 po2 co2 hco3 Broderick Tejada MD Work Phone: Start: 10-30-2023 Assay of magnesium Mirta Warren MD Work Phone: Start: 10-29-2023 Blood gases any combination ph pco2 po2 co2 hco3 Elijah Kennedy MD Work Phone: Start: 10-29-2023 COMMUNICATION ORDER FOR RESPIRATORY CARE Elijah Kennedy MD Work Phone: Start: 10-29-2023 Radiologic exam chest single view Elijah Kennedy MD Work Phone: Start: 10-29-2023 Blood gases any combination ph pco2 po2 co2 hco3 Elijah Kennedy MD Work Phone: Start: 10-29-2023 CBC AND ELECTRONIC DIFF Washington Howell MD Work Phone: Start: 10-29-2023 Complete blood count with white cell differential, automated Washington Howell MD Work Phone: Start: 10-29-2023 GOLD TOP TUBE Washington Howell MD Work Phone: Start: 10-29-2023 LAVENDER TOP TUBE Washington Howell MD Work Phone: Start: 10-29-2023 LT BLUE TOP TUBE Washington Howell MD Work Phone: Start: 10-29-2023 MINT GREEN TOP TUBE Washington Howell MD Work Phone: Start: 10-29-2023 Natriuretic peptide Washington Howell MD Work Phone: Start: 10-29-2023 RAINBOW DRAW Washington Howell MD Work Phone: Start: 10-26-2023 Basic metabolic panel calcium total Lisa Cassie Barnett CNP Work Phone: Start: 10-26-2023 Gases blood ph direct margie xcpt pulse oximitry Lisa Cassie Barnett CNP Work Phone: Start: 10-26-2023 OBTAIN VENOUS BLOOD GASES AND PERFORM Lisa Barnett CNP Work Phone: Start: 10-26-2023 Radiologic exam chest single view Lisa Barnett CNP Work Phone: Start: 10-25-2023 Radiologic exam chest single view Mirta MILLER-C Work Phone: Start: 10-25-2023 OBTAIN VENOUS BLOOD GASES AND PERFORM Mirta MILLER-C Work Phone: Start: 10-25-2023 Ecg routine ecg w/least 12 lds trcg only w/o i&r Alyce Cabral DO Work Phone: Start: 10-25-2023 End: 10-25-2023 Basic metabolic panel calcium total Mirta Christopher PA-C Work Phone: Start: 10-25-2023 MUNOZ TOP Alyce Cabral DO Work Phone: Start: 10-25-2023 LAVENDER TOP Alyce Cabral DO Work Phone: Start: 10-25-2023 LIGHT BLUE TOP Alyce Cabral DO Work Phone: Start: 10-25-2023 LIGHT GREEN TOP Alyce Cabral DO Work Phone: Start: 10-25-2023 MINT GREEN TOP Alyce Cabral DO Work Phone: Start: 10-25-2023 PINK TOP Alyce Cabral DO Work Phone: Start: 10-25-2023 RAINBOW DRAW Alyce Cabral DO Work Phone: Start: 10-08-2023 Spmtry w/vc expiratory demetrio w/wo mxml vol vntj Ivonne Henry MD Work Phone: Start: 10-02-2023 Lipid 1996 panel - Serum or Plasma Latisha Buchanan RN Start: 08-21-2021 Basic metabolic panel calcium total Pablo Davila DO Work Phone: Start: 08-20-2021 Drug tst prsmv instrmnt chem analyzers pr date Vishal Valentin MD Work Phone: Start: 08-20-2021 Iaad ia mult step method nos each organism Pablo Davila DO Work Phone: Start: 08-20-2021 Comprehensive metabolic panel Vishal dao MD Work Phone: Start: 08-19-2021 Assay of troponin quantitative Vishal Valentin MD Work Phone: Start: 08-19-2021 Ct angiography chest w/contrast/noncontrast Vishal Valentin MD Work Phone: Start: 08-19-2021 VENTURI MASK OXYGEN Vishal Valentin MD Work Phone: Start: 08-19-2021 SARS-CoV-2 (COVID-19) RNA [Presence] in Respiratory specimen by MOMO with probe detection Zoe Moreira OBJECT ORIENTED PROGRAMMER Work Phone: Start: 08-19-2021 Radiologic exam chest single view Zoe Moreira OBJECT ORIENTED PROGRAMMER Work Phone: Start: 08-19-2021 Gases blood ph direct margie xcpt pulse oximitry Paige Perla MD Work Phone: Start: 08-19-2021 End: 08-19-2021 Ecg routine ecg w/least 12 lds w/i&r Zoe Moreira [facility] Work Phone: Start: 08-19-2021 Basic metabolic panel calcium total Paige Perla MD Work Phone: Start: 08-19-2021 MUNOZ TOP Paige Perla MD Work Phone: Start: 08-19-2021 LAVENDER TOP Paige Perla MD Work Phone: Start: 08-19-2021 LIGHT BLUE TOP Paige Perla MD Work Phone: Start: 08-19-2021 LIGHT GREEN TOP Paige Perla MD Work Phone: Start: 08-19-2021 MINT GREEN TOP Paige Perla MD Work Phone: Start: 08-19-2021 RAINBOW DRAW Paige Perla MD Work Phone: Start: 01-28-2021 End: 01-28-2021 AIRWAY ETT Dioni Padron MD Work Phone: Start: 01-14-2021 Basic metabolic panel calcium total Harpal Nieto MD Work Phone: Start: 01-14-2021 C-reactive protein Harpal Nieto MD Work Phone: Start: 01-14-2021 Cul prsmptv pthgnc organism scrn w/colony estimj Harpal Nieto MD Work Phone: Start: 12-13-2020 Electrocardiogram Provider Not In System Start: 12-13-2020 Radiologic exam chest single view gUo Ochoa MD Work Phone: Start: 12-13-2020 End: 12-13-2020 Ecg routine ecg w/least 12 lds w/i&r Ugo Ochoa MD Work Phone: Start: 12-13-2020 Gases blood ph direct margie xcpt pulse oximitry Ugo Ochoa MD Work Phone: Start: 12-13-2020 Blood count complete auto&auto difrntl wbc Ugo Ochoa MD Work Phone: Start: 12-13-2020 OBTAIN VENOUS BLOOD GASES AND PERFORM Ugo Ochoa MD Work Phone: Start: 12-13-2020 SARS-CoV-2 (COVID-19) RdRp gene [Presence] in Respiratory specimen by MOMO with probe detection Kvng Olivia DO Work Phone: Start: 10-03-2020 Radex spine lumbosacral 2/3 views John Montes DO Work Phone: Start: 10-03-2020 Radex hip unilateral with pelvis 2-3 views Triage Protocol Emergency Start: 09-21-2020 Ct angiography chest w/contrast/noncontrast Laci Farhana Johnson DO Work Phone: Start: 09-21-2020 Ecg routine ecg w/least 12 lds w/i&r Ugo Ochoa MD Work Phone: Start: 09-21-2020 Basic metabolic panel calcium total Laci A Alex DO Work Phone: Start: 09-21-2020 SARS-CoV-2 (COVID-19) RNA [Presence] in Respiratory specimen by MOMO with probe detection Laci A Alex DO Work Phone: Start: 09-21-2020 Gases blood ph direct margie xcpt pulse oximitry Ugo Ochoa MD Work Phone: Start: 09-21-2020 NASAL CANNULA OXYGEN Laci A Alex DO Work Phone: Start: 09-21-2020 VENTURI MASK OXYGEN Laci A Alex DO Work Phone: Start: 09-21-2020 MUNOZ TOP Ugo Ochoa MD Work Phone: Start: 09-21-2020 LAVENDER TOP Ugo Ochoa MD Work Phone: Start: 09-21-2020 LIGHT BLUE TOP Ugo Ochoa MD Work Phone: Start: 09-21-2020 MINT GREEN TOP Ugo Ochoa MD Work Phone: Start: 09-21-2020 RAINBOW DRAW Ugo Ochoa MD Work Phone: Start: 09-21-2020 Ecg routine ecg w/least 12 lds w/i&r Hospital Nurse Generic Start: 08-13-2020 12 lead ECG Hospital Nurse Generic Start: 08-13-2020 Basic metabolic 2000 panel - Serum or Plasma Pablo Davila Work Phone: Start: 08-13-2020 Complete blood count with white cell differential, automated Pablo Davila Work Phone: Start: 08-13-2020 Complete blood count with white cell differential, manual Pablo Davila Work Phone: Start: 08-12-2020 Dup-scan xtr veins unilateral/limited study Lamberto Tan Work Phone: Start: 08-12-2020 Basic metabolic 2000 panel - Serum or Plasma Pablo Davila Work Phone: Start: 08-12-2020 Complete blood count with white cell differential, automated Pablo Davila Work Phone: Start: 08-12-2020 Complete blood count with white cell differential, manual Pablo Davila Work Phone: Start: 08-11-2020 Standard chest X-ray Lamberto Tan Work Phone: Start: 08-11-2020 Blood gas analysis Lamberto Tan Work Phone: Start: 08-11-2020 OBTAIN VENOUS BLOOD GASES AND PERFORM Lamberto Tan Work Phone: Start: 08-11-2020 CPAP / BIPAP TITRATE Lamberto Tan Work Phone: Start: 08-11-2020 RESPIRATORY GOALS Lamberto Tan Work Phone: Start: 08-11-2020 OBTAIN ARTERIAL BLOOD GASES AND PERFORM Lamberto Tan Work Phone: Start: 08-11-2020 Basic metabolic 2000 panel - Serum or Plasma Pablo Davila Work Phone: Start: 08-11-2020 Complete blood count with white cell differential, automated Pablo Davila Work Phone: Start: 08-11-2020 Complete blood count with white cell differential, manual Pablo Davila Work Phone: Start: 08-11-2020 Magnesium [Mass/volume] in Serum or Plasma Lamberto Tan Work Phone: Start: 08-11-2020 Phosphate [Mass/volume] in Serum or Plasma Lamberto Tan Work Phone: Start: 08-11-2020 Vancomycin [Mass/volume] in Serum or Plasma --trough Christina Perry Start: 08-10-2020 Methicillin resistant Staphylococcus aureus (MRSA) DNA [Presence] in Unspecified specimen by MOMO with probe detection Max Al Valentin Work Phone: Start: 08-10-2020 Troponin measurement Pablo Davila Work Phone: Start: 08-10-2020 Troponin measurement Pablo Davila Work Phone: Start: 08-10-2020 12 lead ECG Pablo Davila Work Phone: Start: 08-10-2020 Complete blood count with white cell differential, automated Pablo Davila Work Phone: Start: 08-10-2020 Complete blood count with white cell differential, manual Pablo Davila Work Phone: Start: 08-10-2020 Basic metabolic 2000 panel - Serum or Plasma Pablo Davila Work Phone: Start: 08-09-2020 12 lead ECG Hospital Nurse Generic Start: 08-09-2020 End: 08-09-2020 Bacteria identified in Blood by Culture Vishal Valentin Work Phone: Start: 08-09-2020 Comprehensive metabolic 2000 panel - Serum or Plasma Vishal Valentin Work Phone: Start: 08-09-2020 Cyanocobalamin vitamin b-12 Vishal thomas Work Phone: Start: 08-09-2020 INR in Platelet poor plasma by Coagulation assay Vishal Valentin Work Phone: Start: 08-09-2020 Magnesium [Mass/volume] in Serum or Plasma Vishal Valentin Work Phone: Start: 08-09-2020 Phosphate [Mass/volume] in Serum or Plasma Vishal Valentin Work Phone: Start: 08-09-2020 Thyrotropin [Units/volume] in Serum or Plasma by Detection limit <= 0.005 mIU/L Vishal Valentin Work Phone: Start: 08-09-2020 Complete blood count with white cell differential, automated Vishal Valentin Work Phone: Start: 08-09-2020 Complete blood count with white cell differential, manual Vishal Valentin Work Phone: Start: 08-09-2020 Hemoglobin A1c/Hemoglobin.total in Blood Vishal Valentin Work Phone: Start: 08-09-2020 Drugs of abuse urine screening test Vishal Valentin Work Phone: Start: 08-09-2020 Urinalysis Vishal Valentin Work Phone: Start: 08-09-2020 Legionella antigen assay Vishal Valentin Work Phone: Start: 08-09-2020 Streptococcus pneumoniae antigen assay Vishal Valentin Work Phone: Start: 08-09-2020 Bacteria identified in Sputum by Aerobe culture Vishal Valentin Work Phone: Start: 08-09-2020 Methicillin resistant Staphylococcus aureus (MRSA) DNA [Presence] in Unspecified specimen by MOMO with probe detection Pablo Davila Work Phone: Start: 08-09-2020 Electrocardiogram Provider Not In System Start: 08-09-2020 Blood gas analysis Vishal Valentin Work Phone: Start: 08-09-2020 OBTAIN VENOUS BLOOD GASES AND PERFORM Dani Ewing Work Phone: Start: 08-08-2020 Radiologic exam chest single view Darek Mccormack Work Phone: Start: 08-08-2020 Bacteria identified in Blood by Culture Darek Mccormack Work Phone: Start: 08-08-2020 Basic metabolic 1998 panel - Serum or Plasma Darek Mccormack Work Phone: Start: 08-08-2020 Complete blood count with white cell differential, automated Darek Mccormack Work Phone: Start: 08-08-2020 Complete blood count with white cell differential, manual Darek Mccormack Work Phone: Start: 08-08-2020 COVID-19/INFLUENZA A,B MOLECULAR Darek Mccormack Work Phone: Start: 08-08-2020 Lactate [Moles/volume] in Serum or Plasma Darek Mccormack Work Phone: Start: 08-08-2020 LIGHT BLUE TOP Dani Ewing Work Phone: Start: 08-08-2020 LIGHT GREEN TOP Dani Ewing Work Phone: Start: 08-08-2020 Natriuretic peptide.B prohormone N-Terminal [Mass/volume] in Serum or Plasma Darek Mccormack Work Phone: Start: 08-08-2020 Troponin measurement Darek mack Work Phone: Start: 08-08-2020 12 lead ECG Vishal Valentin Work Phone: Start: 07-26-2020 CT of head without contrast Alcides Call Work Phone: Start: 07-26-2020 Basic metabolic 2000 panel - Serum or Plasma Alcides Call Work Phone: Start: 07-26-2020 Complete blood count with white cell differential, automated Alcides Call Work Phone: Start: 07-26-2020 Complete blood count with white cell differential, manual Alcides Call Work Phone: Start: 07-26-2020 MUNOZ TOP Boogie Karma Pleitez Work Phone: Start: 07-26-2020 LIGHT BLUE TOP Boogie Karma Pleitez Work Phone: Start: 07-26-2020 RAINBOW DRAW Boogie Karma Pleitez Work Phone: Start: 07-26-2020 Troponin measurement Boogie Pleitez Work Phone: Start: 07-26-2020 12 lead ECG Hospital Nurse Generic Start: 07-26-2020 Adult depression screening assessment Michelle Lindsey CNP Work Phone: Start: 07-25-2020 Drugs of abuse urine screening test Katina Yoder Bunny Work Phone: Start: 07-25-2020 Assay of lactate Flores Mayen Work Phone: Start: 07-25-2020 COVID-19/INFLUENZA A,B MOLECULAR Eladio kamilla Mayen Work Phone: Start: 07-25-2020 Dup-scan xtr veins complete bilateral study Phil Carbajal Work Phone: Start: 07-25-2020 Radex hip unilateral with pelvis 2-3 views Phil Carbajal Work Phone: Start: 07-25-2020 Radiologic exam chest single view Phil Blackrosa Raven Work Phone: Start: 07-25-2020 CT angiography of pulmonary artery Phil Carbajal Work Phone: Start: 07-25-2020 Blood gas analysis Flores Mayen Work Phone: Start: 07-25-2020 Basic metabolic 2000 panel - Serum or Plasma Phil Carbajal Work Phone: Start: 07-25-2020 Complete blood count with white cell differential, automated Phil Carbajal Work Phone: Start: 07-25-2020 Complete blood count with white cell differential, manual Phil Carbajal Work Phone: Start: 07-25-2020 MUNOZ TOP Phil Carbajal Work Phone: Start: 07-25-2020 LAVENDER TOP Phil Carbajal Work Phone: Start: 07-25-2020 LIGHT BLUE TOP Phil Carbajal Work Phone: Start: 07-25-2020 MINT GREEN TOP Phil Carbajal Work Phone: Start: 07-25-2020 Natriuretic peptide.B prohormone N-Terminal [Mass/volume] in Serum or Plasma Phil Carbajal Work Phone: Start: 07-25-2020 Troponin measurement Phil Carbajal Work Phone: Start: 07-25-2020 12 lead ECG Hospital Nurse Generic Start: 07-18-2020 Electrocardiogram Provider Not In System Start: 07-17-2020 End: 07-17-2020 Bacteria identified in Blood by Culture Rudolph Avila Work Phone: Start: 07-17-2020 Assay of lactate Ophelia Rasheed Work Phone: Start: 07-17-2020 COVID-19/INFLUENZA A,B MOLECULAR Ophelia Rasheed Work Phone: Start: 07-17-2020 Gas panel - Venous blood Ugo Angelika Patrick armijo Work Phone: Start: 07-17-2020 RAINBOW DRAW Ophelia Lawson Terrance Work Phone: Start: 07-17-2020 URINE MUNOZ CONTAINER Ophelia Lawson Rasheed Work Phone: Start: 07-17-2020 URINE YELLOW CONTAINER Opheliaalfredito Lawson Rasheed Work Phone: Start: 07-17-2020 OBTAIN VENOUS BLOOD GASES AND PERFORM Ophelia Haywoodeme Terrance Work Phone: Start: 07-17-2020 Troponin measurement Ophelia Lawson Rasheed Work Phone: Start: 07-17-2020 Blood gas analysis Opheliaalfredito Lawson Rasheed Work Phone: Start: 07-17-2020 Complete blood count with white cell differential, automated Opheliaalfredito Lawson Terrance Work Phone: Start: 07-17-2020 Complete blood count with white cell differential, manual Ophelia Rasheed Work Phone: Start: 07-17-2020 Basic metabolic 2000 panel - Serum or Plasma Ophelia Rasheed Work Phone: Start: 07-17-2020 MUNOZ TOP Ophelia Rasheed Work Phone: Start: 07-17-2020 LIGHT BLUE TOP Ophelia Rasheed Work Phone: Start: 07-17-2020 LIGHT GREEN TOP Ophelia Rasheed Work Phone: Start: 07-17-2020 OBTAIN VENOUS BLOOD GASES AND PERFORM Ophelia Rasheed Work Phone: Start: 07-17-2020 RAINBOW DRAW Ophelia Rasheed Work Phone: Start: 07-17-2020 Troponin measurement Ophelia Rasheed Work Phone: Start: 07-17-2020 Radiologic exam chest single view Ophelia Rasheed Work Phone: Start: 07-17-2020 12 lead ECG Hospital Nurse Generic Start: 07-10-2020 Radiologic examination femur minimum 2 views Yenni Bowen Work Phone: Start: 07-10-2020 Radex spine lumbosacral 2/3 views Yenni Bowen Work Phone: Start: 07-10-2020 Radiologic examination knee 1/2 views Yenni Nilsa Bowen Work Phone: Start: 07-10-2020 Radex hip unilateral with pelvis 2-3 views Yenni Nilsa Bowen Work Phone: Start: 07-05-2020 CT of chest without contrast Angelika Rebolledo Work Phone: Start: 07-05-2020 Electrocardiogram Provider Not In System Start: 07-05-2020 Radiologic exam chest single view Alcides Call Work Phone: Start: 07-05-2020 Blood gas analysis Angelika Rebolledo Work Phone: Start: 07-05-2020 Basic metabolic 2000 panel - Serum or Plasma Alcides Call Work Phone: Start: 07-05-2020 Complete blood count with white cell differential, automated Alcides Call Work Phone: Start: 07-05-2020 Complete blood count with white cell differential, manual Alcides Call Work Phone: Start: 07-05-2020 MUNOZ TOP Angelika Rebolledo Work Phone: Start: 07-05-2020 LAVENDER TOP Angelika Rebolledo Work Phone: Start: 07-05-2020 LIGHT BLUE TOP Angelika Rebolledo Work Phone: Start: 07-05-2020 MINT GREEN TOP Angelika Rebolledo Work Phone: Start: 07-05-2020 RAINBOW DRAW Angelika Rebolledo Work Phone: Start: 07-05-2020 12 lead ECG Hospital Nurse Generic Start: 06-19-2020 Basic metabolic 1999 panel - Serum or Plasma Leonardo Perla Work Phone: Start: 06-19-2020 Complete blood count (hemogram) panel - Blood by Automated count Leonardo Perla Work Phone: Start: 06-19-2020 INR in Platelet poor plasma by Coagulation assay Leonardo Perla Work Phone: Start: 05-28-2020 Radiologic exam chest single view Heriberto Billings Work Phone: Start: 05-28-2020 Bacteria identified in Blood by Culture Heriberto Seekarena Work Phone: Start: 05-28-2020 Blood gas analysis Heriberto Billings Work Phone: Start: 05-28-2020 Basic metabolic 1999 panel - Serum or Plasma Heriberto Billings Work Phone: Start: 05-28-2020 Complete blood count with white cell differential, automated Heriberto Billings Work Phone: Start: 05-28-2020 Complete blood count with white cell differential, manual Heriberto Billings Work Phone: Start: 05-28-2020 MUNOZ TOP Triage Protocol Emergency Start: 05-28-2020 Hepatic function 2000 panel - Serum or Plasma Heriberto Billings Work Phone: Start: 05-28-2020 Lactate [Moles/volume] in Serum or Plasma Heriberto Billings Work Phone: Start: 05-28-2020 LAVENDER TOP Triage Protocol Emergency Start: 05-28-2020 LIGHT BLUE TOP Triage Protocol Emergency Start: 05-28-2020 MINT GREEN TOP Triage Protocol Emergency Start: 05-28-2020 Natriuretic peptide.B prohormone N-Terminal [Mass/volume] in Serum or Plasma Heriberto Billings Work Phone: Start: 05-28-2020 RAINBOW DRAW Triage Protocol Emergency Start: 05-28-2020 Thyrotropin [Units/volume] in Serum or Plasma by Detection limit <= 0.005 mIU/L Heriberto Billings Work Phone: Start: 04-18-2020 Comprehensive metabolic 2000 panel - Serum or Plasma Angelika Stringermitzi Work Phone: Start: 04-17-2020 Complete blood count (hemogram) panel - Blood by Automated count Hamlet Wynn Work Phone: Start: 04-16-2020 Radiologic exam chest single view Hamlet Wynn Work Phone: Start: 04-16-2020 Complete blood count (hemogram) panel - Blood by Automated count Hamlet Wynn Work Phone: Start: 04-15-2020 Complete blood count (hemogram) panel - Blood by Automated count Hamlet Wynn Work Phone: Start: 04-14-2020 End: 04-14-2020 12 lead ECG Hospital Nurse Generic Start: 04-14-2020 Troponin measurement Hamlet Wynn Work Phone: Start: 04-14-2020 Legionella antigen assay Washington Garces Work Phone: Start: 04-14-2020 Streptococcus pneumoniae antigen assay Washington Garces Work Phone: Start: 04-14-2020 Methicillin resistant Staphylococcus aureus (MRSA) DNA [Presence] in Unspecified specimen by MOMO with probe detection Washington Garces Work Phone: Start: 04-14-2020 Electrocardiogram Provider Not In System Start: 04-14-2020 Basic metabolic 1998 panel - Serum or Plasma Washington Garces Work Phone: Start: 04-14-2020 Complete blood count (hemogram) panel - Blood by Automated count Washington Garcse Work Phone: Start: 04-13-2020 RAINBOW DRAW Armando Leal Work Phone: Start: 04-13-2020 URINE MUNOZ CONTAINER Armando Leal Work Phone: Start: 04-13-2020 Drugs of abuse urine screening test Armando Leal Work Phone: Start: 04-13-2020 Urinalysis Armando Leal Work Phone: Start: 04-13-2020 Ct angiography chest w/contrast/noncontrast Bethany Nguyen Work Phone: Start: 04-13-2020 COVID-19/INFLUENZA A,B MOLECULAR Armando Leal Work Phone: Start: 04-13-2020 Troponin measurement Bethany Nguyen Work Phone: Start: 04-13-2020 12 lead ECG Hospital Nurse Generic Start: 04-13-2020 Radiologic exam chest single view Armando Leal Work Phone: Start: 04-13-2020 End: 04-13-2020 12 lead ECG Armando Leal Work Phone: Start: 04-13-2020 Blood gas analysis Armando Leal Work Phone: Start: 04-13-2020 End: 04-13-2020 Bacteria identified in Blood by Culture Armando Leal Work Phone: Start: 04-13-2020 OBTAIN VENOUS BLOOD GASES AND PERFORM Armando Leal Work Phone: Start: 04-13-2020 Basic metabolic 1998 panel - Serum or Plasma Armando Leal Work Phone: Start: 04-13-2020 Complete blood count with white cell differential, automated Armando Leal Work Phone: Start: 04-13-2020 Complete blood count with white cell differential, manual Armando Leal Work Phone: Start: 04-13-2020 MUNOZ TOP Triage Protocol Emergency Start: 04-13-2020 Hepatic function 2000 panel - Serum or Plasma Armando Leal Work Phone: Start: 04-13-2020 INR in Platelet poor plasma by Coagulation assay Armando Leal Work Phone: Start: 04-13-2020 Lactate [Moles/volume] in Serum or Plasma Armando Leal Work Phone: Start: 04-13-2020 LAVENDER TOP Triage Protocol Emergency Start: 04-13-2020 LIGHT BLUE TOP Triage Protocol Emergency Start: 04-13-2020 LIGHT GREEN TOP Triage Protocol Emergency Start: 04-13-2020 Lipase [Enzymatic activity/volume] in Serum or Plasma Armando Leal Work Phone: Start: 04-13-2020 MINT GREEN TOP Triage Protocol Emergency Start: 04-13-2020 Natriuretic peptide.B prohormone N-Terminal [Mass/volume] in Serum or Plasma Armando Leal Work Phone: Start: 04-13-2020 RAINBOW DRAW Triage Protocol Emergency Start: 04-13-2020 Thyrotropin [Units/volume] in Serum or Plasma by Detection limit <= 0.005 mIU/L Armando Leal Work Phone: Start: 04-13-2020 Troponin measurement Armando Leal Work Phone: Start: 04-12-2020 Basic metabolic 2000 panel - Serum or Plasma Evaristo Perla Work Phone: Start: 04-12-2020 Complete blood count (hemogram) panel - Blood by Automated count Evaristo Perla Work Phone: Start: 04-12-2020 Drugs of abuse urine screening test Evaristo Perla Work Phone: Start: 04-11-2020 12 lead ECG Maxime Liz Work Phone: Start: 04-11-2020 Radiologic exam chest single view Petrona Khalil Tonio Work Phone: Start: 04-11-2020 COVID-19/INFLUENZA A,B MOLECULAR Petrona Farhana miranda Tonio Work Phone: Start: 04-11-2020 Blood gas analysis Maxime Liz Work Phone: Start: 04-11-2020 Basic metabolic 2000 panel - Serum or Plasma Petrona Khalil Tonio Work Phone: Start: 04-11-2020 Complete blood count with white cell differential, automated Petrona Khalil Tonio Work Phone: Start: 04-11-2020 Complete blood count with white cell differential, manual Petronadaniel Khalil Tonio Work Phone: Start: 04-11-2020 LAVENDER TOP Maxime Liz Work Phone: Start: 04-11-2020 LIGHT BLUE TOP Maxime Liz Work Phone: Start: 04-11-2020 LIGHT GREEN TOP Maxime Liz Work Phone: Start: 04-11-2020 Magnesium [Mass/volume] in Serum or Plasma Lisarodrigue Mglakshmi Rubio Work Phone: Start: 04-11-2020 MINT GREEN TOP Maxime Liz Work Phone: Start: 04-11-2020 Phosphate [Mass/volume] in Serum or Plasma Lisa Rubio Work Phone: Start: 04-11-2020 MUNOZ TOP Maxime Liz Work Phone: Start: 04-11-2020 RAINBOW DRAW Maxime Liz Work Phone: Start: 03-19-2020 Standard chest X-ray External Transcribe d Start: 01-14-2020 Electrocardiogram Provider Not In System Start: 01-14-2020 Radiologic exam chest single view Lotus Cruz Work Phone: Start: 01-14-2020 COVID-19, MOLECULAR Lotus Cruz Work Phone: Start: 01-14-2020 Basic metabolic 2000 panel - Serum or Plasma Lotus Cruz Work Phone: Start: 01-14-2020 Complete blood count with white cell differential, automated Lotus Cruz Work Phone: Start: 01-14-2020 Complete blood count with white cell differential, manual Lotus Cruz Work Phone: Start: 01-14-2020 MUNOZ TOP Teresa Anderson Work Phone: Start: 01-14-2020 LAVENDER TOP Teresa Anderson Work Phone: Start: 01-14-2020 LIGHT BLUE TOP Teresa Anderson Work Phone: Start: 01-14-2020 LIGHT GREEN TOP Teresa Anderson Work Phone: Start: 01-14-2020 MINT GREEN TOP Teresa Andesron Work Phone: Start: 01-14-2020 RAINBOW DRAW Teresa Anderson Work Phone: Start: 01-14-2020 Troponin measurement Teresa Anderson Work Phone: Start: 01-14-2020 12 lead ECG Teresa Anderson Work Phone: Start: 12-29-2019 Standard chest X-ray External Transcribe d Start: 12-12-2019 Radiologic examination pelvis 1/2 views Teresa Merino Work Phone: Start: 11-03-2019 Basic metabolic 2000 panel - Serum or Plasma Lisa Howe Work Phone: Start: 11-03-2019 Complete blood count (hemogram) panel - Blood by Automated count Lisa Howe Work Phone: Start: 11-02-2019 Electrocardiogram Provider Not In System Start: 11-02-2019 Troponin measurement Angelika Oswald Work Phone: Start: 11-02-2019 Echocardiography Lisa Howe Work Phone: Start: 11-02-2019 COVID-19, MOLECULAR Angelika Oswald Work Phone: Start: 11-02-2019 Radiologic exam chest single view Angelika Oswald Work Phone: Start: 11-02-2019 End: 11-02-2019 Glucose [Mass/volume] in Blood Angelika Mack patti Work Phone: Start: 11-02-2019 End: 11-02-2019 12 lead ECG Angelika Oswald Work Phone: Start: 11-02-2019 Basic metabolic 2000 panel - Serum or Plasma Angelika Oswald Work Phone: Start: 11-02-2019 Complete blood count with white cell differential, automated Angelika Oswald Work Phone: Start: 11-02-2019 Complete blood count with white cell differential, manual Angelika Darek Work Phone: Start: 11-02-2019 D-dimer assay, quantitative Lisa Howe Work Phone: Start: 11-02-2019 MUNOZ TOP Angelika Oswald Work Phone: Start: 11-02-2019 Hemoglobin A1c/Hemoglobin.total in Blood Lisa Howe Work Phone: Start: 11-02-2019 LAVENDER TOP Angelika Darek Work Phone: Start: 11-02-2019 LIGHT BLUE TOP Angelika Oswald Work Phone: Start: 11-02-2019 LIGHT GREEN TOP Angelika Oswald Work Phone: Start: 11-02-2019 Lipid 1996 panel - Serum or Plasma Lisa Howe Work Phone: Start: 11-02-2019 MINT GREEN TOP Angelika Oswald Work Phone: Start: 11-02-2019 Natriuretic peptide.B prohormone N-Terminal [Mass/volume] in Serum or Plasma Angelika Oswald Work Phone: Start: 11-02-2019 RAINBOW DRAW Angelika Oswald Work Phone: Start: 11-02-2019 Troponin measurement Angelika Oswald Work Phone: Start: 11-02-2019 Ultrasonography of retroperitoneum External Transcribed Start: 11-02-2019 Adult depression screening assessment Teresa Merino Start: 10-21-2019 Doppler ultrasonography of testis External Transcribed Start: 08-17-2019 Radex hip unilateral with pelvis 2-3 views External Transcribed Start: 08-11-2019 Standard chest X-ray Maxime Butterfieldvin Work Phone: Start: 08-11-2019 Basic metabolic 2000 panel - Serum or Plasma Maxime Butterfieldvin Work Phone: Start: 08-11-2019 Complete blood count with white cell differential, automated Maxime Dani Liz Work Phone: Start: 08-11-2019 Complete blood count with white cell differential, manual Maxime Dani Liz Work Phone: Start: 08-11-2019 Natriuretic peptide.B prohormone N-Terminal [Mass/volume] in Serum or Plasma Maxime Liz Work Phone: Start: 08-11-2019 Troponin measurement Maxime Dani Liz Work Phone: Start: 08-11-2019 12 lead ECG Hospital Nurse Generic Start: 08-04-2019 Standard chest X-ray External Transcribe d Start: 01-10-2018 End: 01-10-2018 Electrocardiogram Provider Not In System Start: 12-14-2017 End: 12-14-2017 Electrocardiogram Provider Not In System Start: 01-10-2017 End: 01-10-2017 Echo tthrc r-t 2d w/wom-mode compl spec&colr d Ugo Jiang Plan of Treatment Date Care Activity Detail Author Start: 10-01-2028 Lipid panel LIPID SCREENING [facility] Start: 02-27-2027 Prostate specific antigen measurement PSA Level [facility] Start: 05-25-2025 End: 05-25-2025 ambulatory 05/25/2025 11:00 AM EST Radiation Oncology [facility] [address] [place] [address] Jihan Rodriguez MD [facility] [place] [address] [facility] Start: 05-22-2025 End: 05-22-2025 ambulatory 05/22/2025 10:45 AM EST Radiation Oncology [facility] [address] [place] [address] [facility] Start: 05-19-2025 End: 05-19-2025 ambulatory 05/19/2025 10:45 AM EST Radiation Oncology [facility] [address] [place] [address] [facility] Start: 05-18-2025 End: 05-18-2025 ambulatory [facility] Start: 05-17-2025 End: 05-17-2025 ambulatory 05/17/2025 10:45 AM EST Radiation Oncology [facility] [address] [place] [address] [facility] Start: 05-16-2025 End: 05-16-2025 ambulatory 05/16/2025 10:45 AM EST Radiation Oncology [facility] [address] [place] [address] [facility] Start: 05-15-2025 End: 05-15-2025 ambulatory 05/15/2025 10:45 AM EST Radiation Oncology [facility] [address] [place] [address] [facility] Start: 05-12-2025 End: 05-12-2025 ambulatory 05/12/2025 10:45 AM EST Radiation Oncology [facility] [address] [place] [address] [facility] Start: 05-11-2025 End: 05-11-2025 ambulatory [facility] Start: 05-10-2025 End: 05-10-2025 ambulatory 05/10/2025 10:45 AM EST Radiation Oncology [facility] [address] [place] [address] [facility] Start: 05-09-2025 End: 05-09-2025 ambulatory 05/09/2025 10:45 AM EST Radiation Oncology [facility] [address] [place] [address] [facility] Start: 2025 Pneumococcal Vaccine: Ped or At-Risk (2 of 2 - PPSV23) Pneumococcal Vaccine: Ped or At-Risk (2 of 2 - PPSV23) [facility] Start: 2025 End: 2025 ambulatory 2025 10:45 AM EST Radiation Oncology [facility] [address] [place] [address] [facility] Start: 05-03-2025 End: 05-03-2025 ambulatory 05/03/2025 10:45 AM EST Radiation Oncology [facility] [address] [place] [address] [facility] Start: 05-02-2025 End: 05-02-2025 ambulatory 05/02/2025 10:45 AM EST Radiation Oncology [facility] [address] [place] [address] [facility] Start: 05-01-2025 End: 05-01-2025 ambulatory 05/01/2025 10:45 AM EST Radiation Oncology [facility] [address] [place] [address] [facility] Start: 04-28-2025 End: 04-28-2025 ambulatory 04/28/2025 10:45 AM EST Radiation Oncology [facility] [address] [place] [address] [facility] Start: 04-27-2025 End: 04-27-2025 ambulatory [facility] Start: 04-26-2025 End: 04-26-2025 ambulatory 04/26/2025 10:45 AM EST Radiation Oncology [facility] [address] [place] [address] [facility] Start: 04-25-2025 End: 04-25-2025 ambulatory 04/25/2025 10:45 AM EST Radiation Oncology [facility] [address] [place] [address] [facility] Start: 04-24-2025 End: 04-24-2025 ambulatory 04/24/2025 10:45 AM EST Radiation Oncology [facility] [address] [place] [address] [facility] Start: 04-21-2025 End: 04-21-2025 ambulatory 04/21/2025 10:45 AM EST Radiation Oncology [facility] [address] [place] [address] [facility] Start: 04-20-2025 End: 04-20-2025 ambulatory [facility] Start: 04-19-2025 End: 04-19-2025 ambulatory 04/19/2025 10:45 AM EST Radiation Oncology [facility] [address] [place] [address] [facility] Start: 04-18-2025 End: 04-18-2025 ambulatory 04/18/2025 10:45 AM EST Radiation Oncology [facility] [address] [place] [address] [facility] Start: 04-17-2025 End: 04-17-2025 ambulatory 04/17/2025 10:45 AM EST Radiation Oncology [facility] [address] [place] [address] [facility] Start: 04-14-2025 End: 04-14-2025 ambulatory 04/14/2025 10:45 AM EST Radiation Oncology [facility] [address] [place] [address] [facility] Start: 03-23-2025 End: 03-23-2025 Patient encounter procedure 03/23/2025 9:00 AM EDT Office Visit [facility] Physician [facility] [address] [place] [address] Jihan Rodriguez MD [address] [place] [address] Lance Patterson MD [address] [address] [facility] Start: 03-16-2025 End: 03-16-2025 ambulatory [facility]iation Oncology Start: 03-14-2025 End: 03-14-2025 Patient encounter procedure 03/14/2025 1:45 PM EDT Office Visit [facility] Phys[facility] [address] [facility] [address] [place] [address] Elijah Sanchez MD [address] [facility] [address] [place] [address] [facility] Physician [facility] Start: 03-03-2025 End: 03-03-2025 ambulatory 03/03/2025 1:00 PM EDT Radiation Oncology [facility] Radiation Oncology [address] [place] [address] Jihan Rodriguez MD [address] [place] [address] [facility] Start: 02-14-2025 End: 02-14-2025 Telemedicine consultation with patient 02/14/2025 3:00 PM EDT Telemedicine Telephone [facility] [address] [facility] [address] [place] [address] Elijah Sanchez MD [address] [facility] [address] [place] [address] [facility] Phys[facility] Start: 02-13-2025 End: 02-13-2025 Patient encounter procedure 02/13/2025 11:00 AM EDT Office Visit [facility] [address] [facility] [address] [place] [address] Kvng Escoto PA-C [address] [address] [facility] Start: 02-06-2025 COVID-19 Vaccine ( season) COVID-19 Vaccine ( season) [facility] Start: 02-06-2025 Influenza vaccination [facility] Start: 02-01-2025 [facility] Start: 02-01-2025 End: 02-01-2025 Patient encounter procedure 02/01/2025 11:00 AM EDT Procedure visit [facility] Physician [facility] [address] [address] Elijah Sanchez MD [address] [address] [facility] Start: 12-02-2024 End: 11-25-2025 MR Prostate WO and W contrast IV MR Prostate With And Without Contrast Imaging Routine Elevated PSA Expected: 12/02/2024, Expires: 11/25/2025 [facility] Work Phone: Comment on above: Expected: 12/02/2024, Expires: Start: 11-23-2024 Assay of prostate specific antigen free ASSAY OF PSA FREE [facility] Start: 11-23-2024 Free prostate specific antigen level ASSAY OF PSA FREE [facility] Start: 11-11-2024 End: 11-11-2024 Patient encounter procedure 11/11/2024 10:30 AM EDT Office Visit [facility] Phys[facility] [address] [facility] [address] [place] [address] Jihan Wooten MD [address] [facility] [address] [place] [address] [facility] Physician [facility] Start: 10-30-2024 Potassium [Moles/volume] in Serum or Plasma POTASSIUM [facility] Start: 10-28-2024 End: 10-28-2024 Patient encounter procedure 10/28/2024 9:40 AM EDT Office Visit [facility] Physician [facility] [address] [facility] [address] [place] [address] Kvng Escoto PA-C [address] [address] [facility] Start: 10-01-2024 Potassium [Moles/volume] in Serum or Plasma POTASSIUM [facility] Start: 10-01-2024 Prostate specific antigen measurement PROSTATE CANCER SCREENING DISCUSSION [facility] Start: 08-18-2024 [facility] Start: 07-05-2024 [facility] Start: 06-02-2024 Egd flexible foreign body removal EGD REMOVE FOREIGN BODY [facility] Start: 06-02-2024 Patient discharge [facility] Start: 05-31-2024 [facility] Start: 05-30-2024 End: 05-30-2024 [facility] Start: 05-23-2024 Patient discharge [facility] Start: 05-22-2024 Inhalation therapy procedure [facility] Start: 05-20-2024 Following clinical pathway protocol [facility] Start: 05-20-2024 Assessment of risk of venous thromboembolism [facility] Start: 05-20-2024 Insertion of catheter into peripheral vein [facility] Start: 05-20-2024 Introduction of urinary catheter [facility] Start: 05-20-2024 Measuring intake and output [facility] Start: 05-20-2024 Oxygen therapy [facility] Start: 05-20-2024 Providing care according to standard [facility] Start: 05-20-2024 Provision of activity privileges [facility] Start: 05-20-2024 Referral to service [facility] Start: 05-20-2024 Tobacco use cessation education [facility] Start: 05-20-2024 [facility] Start: 05-20-2024 Admission procedure [facility] Start: 05-18-2024 Patient discharge [facility] Start: 05-18-2024 Consultation [facility] Start: 05-17-2024 End: 05-17-2024 [facility] Start: 05-17-2024 Following clinical pathway protocol [facility] Start: 05-17-2024 Ambulation without limitation [facility] Start: 05-17-2024 Assessment of risk of venous thromboembolism [facility] Start: 05-17-2024 Inhalation therapy procedure [facility] Start: 05-17-2024 Insertion of catheter into peripheral vein [facility] Start: 05-17-2024 Oxygen therapy [facility] Start: 05-17-2024 Providing care according to standard [facility] Start: 05-17-2024 Referral to service [facility] Start: 05-17-2024 Admission procedure [facility] Start: 02-07-2024 COVID-19 Vaccine ( season) COVID-19 Vaccine ( season) [facility] Start: 02-07-2024 Influenza vaccination INFLUENZA VACCINE (Season Ended) [facility] Start: 02-02-2024 End: 02-02-2024 Patient encounter procedure 02/02/2024 1:40 PM EDT Office Visit Primary Care - General Internal Medicine Outpatient Care [facility] [address] [facility] [address] [place] [address] Ivonne Henry MD [address] [facility] [address] [place] [address] Primary Care - General Internal Medicine Outpatient Care [facility] Start: 01-05-2024 End: 01-05-2024 Patient encounter procedure 01/05/2024 11:20 AM EDT Office Visit Primary Care - General Internal Medicine Outpatient Care [facility] [address] [phone] Ivonne Henry MD [address] [phone] Primary Care - General Internal Medicine Outpatient Care [facility] Start: 11-16-2023 End: 10-04-2024 PSA screening PSA, SCREENING Lab Routine Elevated PSA Expected: 11/16/2023, Expires: 10/04/2024 [facility] Comment on above: Expected: 11/16/2023, Expires: Start: 10-30-2023 End: 10-30-2023 Patient encounter procedure 10/30/2023 2:30 PM EDT Office Visit Spine Care Outpatient Care [facility] [address] [place] [address] Phil Mckeon MD [address] [phone] Spine Care Outpatient Care [facility] Start: 10-12-2023 End: 10-12-2023 Patient encounter procedure [facility] [place] Start: 10-06-2023 End: 10-06-2023 Patient encounter procedure 10/06/2023 2:30 PM EDT Appointment Lung Care Outpatient Care [facility] [address] [facility] [address] [place] [phone] Ivonne Henry MD [address] [phone] Lung Care Outpatient Care [facility] Start: 10-05-2023 End: 10-04-2024 H. PYLORI WITH CLARITHROMYCIN RESISTANCE PREDICTION, PCR H. PYLORI WITH CLARITHROMYCIN RESISTANCE PREDICTION, PCR Fluids Routine PUD (peptic ulcer disease) Expected: 10/05/2023, Expires: 10/04/2024 [facility] Comment on above: Expected: 10/05/2023, Expires: 5 Start: 10-02-2023 End: 10-01-2024 Measurement of respiratory function PFT STANDARD PFT Routine Other emphysema Health care maintenance Expected: 10/02/2023, Expires: 10/01/2024 [facility] Comment on above: Expected: 10/02/2023, Expires: Start: 02-06-2023 COVID-19 VACCINE () COVID-19 VACCINE () [facility] Start: 02-06-2023 COVID-19 Vaccine () COVID-19 Vaccine () [facility] Start: 09-05-2021 End: 09-05-2021 Patient encounter procedure 09/05/2021 Office Visit Pain Medicine Esha Bergeron PA-C [address] [place] [address] Tray Pitt MD [address] [place] [address] [place] [address] [facility] Start: 07-26-2021 Depression screening using PHQ-9 (Patient Health Questionnaire 9) score [facility] Start: 06-25-2021 End: 06-25-2021 Patient encounter procedure 06/25/2021 Office Visit Orthopedic Surgery Karma Mark, OBJECT ORIENTED PROGRAMMER [address] [place] [address] Elpidio Teran, [address] [place] [address] [facility] Start: 06-09-2021 COVID-19 Vaccine (3 - Booster for Pfizer series) COVID-19 Vaccine (3 - Booster for Pfizer series) [facility] Start: 05-09-2021 COVID-19 Vaccine (3 - Booster for Pfizer series) COVID-19 Vaccine (3 - Booster for Pfizer series) [facility] Start: 04-13-2021 Screening for malignant neoplasm of lung Low-dose CT Lung Cancer Screen [facility] Start: 03-15-2021 End: 03-15-2021 Patient encounter procedure 03/15/2021 Office Visit Orthopedic Surgery Teresa Terry MD [address] [place] [address] [facility] Start: 02-15-2021 End: 02-15-2021 Patient encounter procedure [facility] Start: 02-06-2021 Influenza vaccination Sequential Influenza Vaccine (#1) [facility] Start: 01-28-2021 End: 01-28-2021 Anesthesia consultation 01/28/2021 Anesthesia Event George Fam II [facility] [place] Start: 01-28-2021 End: 01-28-2021 ARTHROPLASTY HIP ARTHROPLASTY HIP Primary osteoarthritis of right hip 01/28/2021 12:15 PM EDT [facility] [place] Start: 01-28-2021 End: 01-28-2021 Admission to same day surgery center [facility] Comment on above: RIGHT TOTAL HIP ARTHROPLASTY Start: 01-28-2021 Subsequent hospital visit by physician [facility] Start: 01-24-2021 End: 01-24-2021 Patient encounter procedure 01/24/2021 Office Visit Lab Jihan Orozco PA-C [address] [place] [address] [phone] [facility] Start: 01-14-2021 End: 01-14-2021 Patient encounter procedure 01/14/2021 Office Visit Pre-Admission Testing Teresa Terry MD [address] [place] [address] [phone] [facility] Preadmission Testing Start: 11-01-2020 Depression screening using PHQ-9 (Patient Health Questionnaire 9) score Depression Screening (PHQ9) [facility] Start: 10-23-2020 COVID-19 Vaccine (2 - Pfizer 2-dose series) COVID-19 Vaccine (2 - Pfizer 2-dose series) [facility] Start: 10-23-2020 End: 10-23-[address] [facility] CT Start: 10-22-2020 End: 10-22-[address] [facility] Start: 08-17-2020 Pneumococcal Vaccine: 50+ Years (2 of 2 - PCV) Pneumococcal Vaccine: 50+ Years (2 of 2 - PCV) [facility] Start: 08-17-2020 Pneumococcal Vaccine: Age 50+ (2 of 2 - PCV) Pneumococcal Vaccine: Age 50+ (2 of 2 - PCV) [facility] Start: 08-17-2020 Pneumococcal Vaccine: Ped or At-Risk (2 of 2 - PCV) Pneumococcal Vaccine: Ped or At-Risk (2 of 2 - PCV) [facility] Start: 07-20-2020 End: 07-20-2020 Office Visit 07/20/2020 Office Visit Sports Medicine Max Wright IV, MD [address] [facility] [address] [place] [address] [phone] [facility] - Sports Medicine and Primary Care Start: 07-10-2020 End: 07-10-2020 Hospital Encounter [facility] Comment on above: Hydrocele HYDROCELECTOMY Start: 06-26-2020 End: 06-26-2020 Hospital Encounter [place] [facility] [place] Comment on above: Hydrocele HYDROCELECTOMY Start: 06-26-2020 End: 06-26-2020 Hospital Encounter [facility] [place] Comment on above: Hydrocele HYDROCELECTOMY Start: 06-25-2020 End: 06-25-[address] [facility] Lab Start: 06-22-2020 End: 06-22-2020 Office Visit 06/22/2020 Office Visit Lab Leonardo Perla MD [address] [facility] [address] [place] [address] [phone] [facility] Start: 06-19-2020 End: 06-19-2020 Office Visit 06/19/2020 Office Visit Pre-Admission Testing Karma Mark, OBJECT ORIENTED PROGRAMMER [address] [place] [address] [phone] [facility] Preadmission Testing Start: 06-14-2020 End: 06-14-2020 Telemedicine 06/14/2020 Telemedicine Pulmonology Michelle Lindsey, OBJECT ORIENTED PROGRAMMER [address] [facility] [address] [place] [address] [phone] [facility] Start: 05-15-2020 End: 05-15-2020 Hospital Encounter [facility] Comment on above: Epididymal cyst BILATERAL SPERMATOCE LECTOMY *CHECK MAP* Start: 05-11-2020 End: 05-11-2020 Office Visit 05/11/2020 Office Visit Lab Leonardo Perla MD [address] [place] [place] [address] [phone] [facility] Start: 2020 Respiratory Syncytial Virus Immunization: Risk, 60-74 Risk, or 75+ (1 - Risk 60-74 years 1-dose series) Respiratory Syncytial Virus Immunization: Risk, 60-74 Risk, or 75+ (1 - Risk 60-74 years 1-dose series) [facility] Start: 04-20-2020 End: 04-20-2020 Hospital Encounter [facility] Comment on above: Epididymal cyst RIGHT EPIDIDYMAL CYS T EXCISION POSSIBLE EPIDYMECTOMY (REMOVAL OF EPIDIDYMIS) *CHECK MAP* Start: 04-16-2020 End: 04-16-2020 Office Visit 04/16/2020 Office Visit Lab Leonardo Perla MD [address] [place] [address] [phone] [facility] Start: 02-07-2020 Influenza vaccination Sequential Influenza Vaccine (#1) [facility] Start: 02-07-2020 Influenza vaccination given Sequential Influenza Vaccine (#1) [facility] Start: 01-17-2020 End: 01-17-2020 Office Visit 01/17/2020 Office Visit General Surgery [facility] [place] Start: 01-02-2020 End: 01-02-2020 Office Visit [facility] Start: 11-23-2019 End: 11-23-2019 Office Visit 11/23/2019 Office Visit Orthopedic Surgery Karma Mark, OBJECT ORIENTED PROGRAMMER [address] [place] [address] [phone] Teresa Merino III, MD [address] [place] [address] [phone] [facility] Start: 06-08-2019 Tetanus vaccination TETANUS [facility] Start: 02-06-2019 Influenza vaccination given SEQUENTIAL INFLUENZA VACCINE (#1) [facility] Start: 09-23-2018 Screening for malignant neoplasm of colon COLORECTAL CANCER SCREENING DISCUSSION [facility] Start: 06-16-2018 End: 12-14-[address] Angiogram Chest Routine Thoracic aortic aneurysm without rupture (HCC) Expected: 06/16/2018 (Approximate), Expires: 12/14/2018 [facility] Start: 02-06-2018 Influenza vaccination SEQUENTIAL INFLUENZA VACCINE (#1) [facility] Start: 02-05-2018 End: 02-05-2018 Ambulatory 02/05/2018 Office Visit Primary Care Jacob Rivas DO [address] [place] [address] [phone] [facility] [place] Start: 01-27-2018 End: 01-27-2018 Ambulatory 01/27/2018 Office Visit Neurosurgery Shannan Combs, OBJECT ORIENTED PROGRAMMER [address] [facility] [address] [place] [address] [phone] [facility] Start: 01-19-2018 End: 01-19-2018 Ambulatory 01/19/2018 Office Visit Transition [facility] Care [facility] Start: 12-29-2017 End: 12-29-2017 Ambulatory 12/29/2017 Office Visit [facility] Start: 02-06-2017 SEQUENTIAL INFLUENZA VACCINE (#1) SEQUENTIAL INFLUENZA VACCINE (#1) [facility] Work Phone: Start: 2010 Administration of herpes zoster vaccine Zoster Vaccines (1 of 2) [facility] Start: 2010 RSV Vaccines (1 - Risk 50-74 years 1-dose series) RSV Vaccines (1 - Risk 50-74 years 1-dose series) [facility] Start: 2010 Screening for malignant neoplasm of colon [facility] Start: 2010 Zoster vaccine hzv live for subcutaneous use ZOSTER (SHINGLES) VACCINE (1 of 2) [facility] Start: 1979 Vaccination for diphtheria, pertussis, and tetanus Tetanus/Diphtheria/Pert ussis (1 - Tdap) [facility] Start: 1978 Hepatitis C antibody, confirmatory test Hepatitis C Screening [facility] Start: 1978 Hepatitis C screening Hepatitis C Screening [facility] Start: 1976 COVID-19 Vaccine (1 of 2) COVID-19 Vaccine (1 of 2) [facility] Start: 1976 COVID-19 Vaccine (1) COVID-19 Vaccine (1) [facility] Start: 1975 HIV screening HIV Screening [facility] Start: 1972 Adolescent depression screening assessment Depression Screening (PHQ9) [facility] Start: 1972 Depression screening using PHQ-9 (Patient Health Questionnaire 9) score [facility] Start: 1966 PNEUMOCOCCAL VACCINE SERIES (1 of 2 - PCV) PNEUMOCOCCAL VACCINE SERIES (1 of 2 - PCV) [facility] Start: 1966 Pneumococcal Vaccine: Ped or At-Risk (1 of 2 - PPSV23) Pneumococcal Vaccine: Ped or At-Risk (1 of 2 - PPSV23) [facility] Start: 1963 History and physical examination, annual for health maintenance Wellness Visit [facility] Start: 1963 PREVENTATIVE HEALTH VISIT PREVENTATIVE HEALTH VISIT [facility] Start: 1961 [id number] vaccination MMR Vaccines (1 of 1 - Standard series) [facility] Start: 1960 Colonoscopy COLONOSCOPY [facility] Work Phone: Start: 1960 Depression screening using PHQ-9 (Patient Health Questionnaire 9) score Depression Screening (PHQ9) [facility] Start: 1960 Hepatitis C antibody, confirmatory test HEPATITIS C SCREENING [facility] Start: 1960 HEPATITIS C SCREENING HEPATITIS C SCREENING [facility] Work Phone: Start: 1960 Prostate specific antigen measurement PSA Level [facility] Start: 1960 Screening colonoscopy COLONOSCOPY [facility] Start: 1960 Screening for malignant neoplasm of colon [facility] Start: 1960 TETANUS EVERY 10 YR TETANUS EVERY 10 YR [facility] Work Phone: Start: 1960 Tetanus vaccination [facility] 12 lead ECG EKG 12-lead ECG STAT 12/13/2020 12:55 PM EDT [facility] End: 04-14-2020 Bacteria identified Aer cx Nom (Sput) Sputum Aerobic Culture Microbiology Routine Once for 1 Occurrences starting 04/14/2020 until 04/14/2020 [facility] Comment on above: Once for 1 Occurrences starting 04/14/20 20 until 04/14/2020 End: 07-17-2020 Bacteria identified Aer cx Nom (Sput) Sputum Aerobic Culture Microbiology Routine Once for 1 Occurrences starting 07/17/2020 until 07/17/2020 [facility] Comment on above: Once for 1 Occurrences starting 07/17/19 21 until 07/17/2020 Bacteria identified Cx Nom (Bld) [facility] End: 05-21-2021 Basic metabolic 2000 panel Basic metabolic panel Lab Routine Hydrocele, unspecified hydrocele type 1 Occurrences starting 05/21/2020 until 05/21/2021 [facility] Comment on above: 1 Occurrences starting 05/21/2020 until 05/21/2021 Basic metabolic 2000 panel Basic metabolic panel Lab Routine Hydrocele, unspecified hydrocele type 06/19/2020 11:32 AM EST [facility] End: 05-21-2021 Complete blood count (hemogram) panel - Blood by Automated count CBC Lab Routine Hydrocele, unspecified hydrocele type 1 Occurrences starting 05/21/2020 until 05/21/2021 [facility] Comment on above: 1 Occurrences starting 05/21/2020 until 05/21/2021 Complete blood count (hemogram) panel - Blood by Automated count CBC Lab Routine Hydrocele, unspecified hydrocele type 06/19/2020 11:32 AM EST [facility] End: 06-15-2021 Complete PFT with Pre and Post Bronchodilator Complete PFT with Pre and Post Bronchodilator PFT Routine Chronic obstructive pulmonary disease, unspecified COPD type (HCC) Tobacco use 1 Occurrences starting 06/15/2020 until 06/15/2021 [facility] Comment on above: 1 Occurrences starting 06/15/2020 until 06/15/2021 End: 06-15-2021 Covid-19/Influenza Order Algorithm : COVID-19 Lab Test Only (OP in UTM) Covid-19/Influenza Order Algorithm : COVID-19 Lab Test Only (OP in UTM) Microbiology Routine Epididymal cyst 1 Occurrences starting 06/15/2020 until 06/15/2021 [facility] Comment on above: 1 Occurrences starting 06/15/2020 until 06/15/2021 CT angiography of pulmonary artery CT Pulmonary Arteries Imaging [facility] 09/21/2020 2:15 PM EDT [facility] End: 10-12-2023 CT of chest [facility] Work Phone: Comment on above: 1 Occurrences starting 10/12/2023 until 10/12/2023 End: 06-15-2021 CT of chest without contrast CT Chest Without Contrast Imaging Routine Chronic obstructive pulmonary disease, unspecified COPD type (HCC) Multifocal pneumonia Tobacco use History of drug use 1 Occurrences starting 06/15/2020 until 06/15/2021 [facility] Comment on above: 1 Occurrences starting 06/15/2020 until 06/15/2021 End: 05-21-2021 INR Coag (PPP) [Relative time] PT/INR Lab Routine Hydrocele, unspecified hydrocele type 1 Occurrences starting 05/21/2020 until 05/21/2021 [facility] Comment on above: 1 Occurrences starting 05/21/2020 until 05/21/2021 INR Coag (PPP) [Rela tive time] PT/INR Lab Routine Hydrocele, unspecified hydrocele type 06/19/2020 11:32 AM EST [facility] Measurement of respi ratory function PFT STANDARD PFT Routine Other emphysema Health care maintenance 10/08/2023 8:57 AM EDT [facility] MR Brain Without Contrast MR Bra in Without Contrast STAT 12/15/2017 8:40 AM EDT [facility] End: 06-26-2022 MRI of lumbar spine without contrast MR Lumbar Spine Without Contrast Imaging Routine Chronic low back pain with left-sided sciatica, unspecified back pain laterality Impaired sensation to light touch Left leg weakness Asymmetrical deep tendon reflexes 1 Occurrences starting 06/25/2021 until 06/26/2022 [facility] Work Phone: Comment on above: 1 Occurrences starting 06/25/2021 until 06/26/2022 Patient Education [facility] Work Phone: Patient referral [facility] Work Phone: Procedure on tissue specimen Tissue Exam Pathology and Cytology Routine Elevated PSA Ordered: 02/01/2025 [facility] Work Phone: Comment on above: Ordered: 02/01/2025 End: 08-27-2026 Prostate specific Ag [Mass/volume] in Serum or Plasma [facility] Work Phone: Comment on above: 6 Occurrences starting 02/27/2025 until 08/27/2026 6 Occurrences starti ng 02/27/2025 until 08/27/2026, 1 completed Prostate specific Ag [Mass/volume] in Serum or Plasma PSA Monitor Lab Routine Prostate cancer (HCC) 02/27/2025 2:57 PM EDT [facility] End: 11-01-2025 Prostate specific Ag panel - Serum or Plasma PSA, Total and Free Lab Routine Elevated PSA 1 Occurrences starting 11/01/2024 until 11/01/2025 [facility] Work Phone: Comment on above: 1 Occurrences starting 11/01/2024 until 11/01/2025 [place] Draw [facility] End: 12-25-2021 SARS-CoV-2 (COVID-19) RdRp gene [Presence] in Respiratory specimen by MOMO with probe detection COVID-19, Molecular Microbiology Routine Exposure to SARS-associated coronavirus 1 Occurrences starting 12/25/2020 until 12/25/2021 [facility] Comment on above: 1 Occurrences starting 12/25/2020 until 12/25/2021 End: 10-29-2023 Standard ECG [facility] Work Phone: Comment on above: One Time for 1 Occurrences starting 10/07 until 10/29/2023 Ultrasound Duplex Ve nous Legs BILATERAL Ultrasound Duplex Venous Legs BILATERAL [facility] 01/09/2018 9:24 PM EDT [facility] XR Hip Right 2-3 Vie ws (Routine) XR Hip Right 2-3 Views (Routine) Imaging Routine Chronic right hip pain 08/17/2019 12:54 PM EDT [facility] End: 12-29-2018 XR Hips Bilateral With Pelvis 3-4 Views XR Hips Bilateral With Pelvis 3-4 Views Routine Bilateral hip pain 1 Occurrences starting 12/29/2017 until 12/29/2018 [facility] XR Lumbar Spine 2-3 Views (Standard) XR Lumbar Spine 2-3 Views (Standard) Imaging [facility] 10/03/2020 10:04 PM EDT [facility] Immunizations Immunization Date Immunization Notes Care Provider [facility] 05-18-2024 influenza, seasonal, injectable, preservative free Iker Blackwell MD Work Phone: [facility] 05-18-2024 influenza virus vaccine, unspecified formulation Elijah Sanchez MD Work Phone: [facility] 12-07-2020 Pfizer SARS-CoV-2 Vaccination Michelle Duffyterrell FRITZ Work Phone: [facility] 05-25-2019 influenza, injectabl e, quadrivalent, preservative free Latisha Buchanan RN [facility] 05-25-2019 influenza virus vaccine, unspecified formulation Latisha Buchanan RN [facility] Payers Date Payer Category Payer Unknown [id number] 2024 Self-pay 2023 [facility] [place] [id number] 2019 Medicaid 2019 Medicaid [facility] MEDICAID COMMUNITY PLAN xxxxxxxxx 2019-Present xxxxxxxxx [id number] 2019 Medicaid [id number] 2017 Medicaid [id number] 2017 Unknown 2017 Unknown [id number] 1960 Unknown [id number] 2.16.840.1.941980.3.579.2. 594 1960 Unknown [id number] 2.16.840.1.842471.3.579.2. 594 1960 Unknown [id number] 2.16.840.1.839620.3.579.2. 903 1960 Unknown [id number] 2.16.840.1.213836.3.579.2. 900 1960 Unknown [id number] 2.16.840.1.207125.3.579.2. 903 1960 Unknown [id number] 2.16.840.1.438617.3.579.2. 903 1960 Unknown [id number] 2.16.840.1.069330.3.579.2. 903 1960 Unknown [id number] 2.16.840.1.549310.3.579.2. 903 1960 Unknown [id number] 2.16.840.1.066040.3.579.2. 903 1960 Unknown [id number] 2.16.840.1.227548.3.579.2. 903 1960 Unknown [id number] 2.16.840.1.688324.3.579.2. 903 1960 Unknown [id number] 2.16.840.1.792912.3.579.2. 902 1960 Unknown [id number] 2.16.840.1.915436.3.579.2. 903 1960 Unknown [id number] 2.16.840.1.236073.3.579.2. 903 1960 Unknown [id number] 2.16.840.1.514513.3.579.2. 903 1960 Unknown [id number] 2.16.840.1.301100.3.579.2. 903 1960 Unknown [id number] 2.16.840.1.538232.3.579.2. 903 1960 Unknown [id number] 2.16.840.1.126813.3.579.2. 903 1960 Unknown [id number] 2.16.840.1.537130.3.579.2. 903 1960 Unknown [id number] 2.16.840.1.126075.3.579.2. 903 1960 Unknown [id number] 2.16.840.1.550989.3.579.2. 903 1960 Unknown [id number] 2.16.840.1.485329.3.579.2. 903 1960 Unknown [id number] 2.16.840.1.037506.3.579.2. 903 1960 Unknown [id number] 2.16.840.1.740218.3.579.2. 903 Unknown [id number] 2.16.840.1.005792.3.579.2. 462 Unknown [id number] 2.16.840.1.989797.3.579.2. 462 Unknown [id number] 2.16.840.1.868377.3.579.2. 462 Unknown [id number] 2.16.840.1.570863.3.579.2. 462 Unknown [id number] 2.16.840.1.736944.3.579.2. 462 Unknown [id number] 2.16.840.1.695964.3.579.2. 462 Unknown [id number] 2.16.840.1.870942.3.579.2. 462 Unknown [id number] 2.16.840.1.300482.3.579.2. 462 Unknown [id number] 2.16.840.1.672085.3.579.2. 462 Unknown [id number] 2.16.840.1.354268.3.579.2. 462 Unknown [id number] 2.16.840.1.017855.3.579.2. 462 Unknown [id number] 2.16.840.1.302680.3.579.2. 462 Unknown [id number] 2.16.840.1.000672.3.579.2. 462 Unknown [id number] 2.16.840.1.757168.3.579.2. 462 Unknown [id number] 2.16.840.1.141412.3.579.2. 462 Unknown [id number] 2.840.1.002856.3.579.2. 462 Unknown [id number] 2.16840.1.413598.3.579.2. 462 Unknown [id number] 2.840.1.312076.3.579.2. 462 Unknown [id number] 2.16840.1.359547.3.579.2. 462 Unknown [id number] 2.16840.1.178817.3.579.2. 462 Unknown [id number] 2.16.840.1.808128.3.579.2. 462 Unknown [id number] 2.16.840.1.702745.3.579.2. 462 Unknown [id number] 2.16.840.1.379715.3.579.2. 462 Unknown [id number] 2.16.840.1.776741.3.579.2. 462 Unknown [id number] 2.16.840.1.887089.3.579.2. 462 Unknown [id number] 2.16.840.1.567861.3.579.2. 462 Unknown [id number] 2.16.840.1.802886.3.579.2. 462 Social History Date Type Detail Facility Start: 01-19-1969 End: 10-28-2024 Tobacco smoking status NHIS Current every day smoker [facility] Start: 01-19-1969 History of tobacco use Cigarette Smoker [facility] Work Phone: Start: 12-13-2017 End: 10-31-2023 Cigarettes smoked current (pack per day) - Reported [facility] Start: 1960 Sex Assigned At Not on file [facility] Work Phone: Start: 06-22-2018 End: 01-02-2020 Alcohol intake Current non-drinker of alcohol (finding) [facility] Start: 01-09-2017 Alcohol Comment occ [facility] Start: 07-23-2021 End: 08-19-2021 Exposure to SARS-CoV-2 (event) Not sure [facility] Start: 01-17-2020 End: 10-28-2024 Tobacco use and exposure Never used [facility] Start: 03-02-2020 End: 03-23-2025 Alcohol intake Ex-drinker (finding) [facility] Exposure to SARS-CoV -2 (event) Yes [facility] Start: 06-14-2020 Tobacco Comment Trying to cut back, but [place] was stressful and money problems [facility] Exposure to SARS-CoV -2 (event) Unable to assess [facility] Start: 06-19-2020 Tobacco Comment Trying to cut back, 8 cigs per day [facility] Start: 06-19-2020 Alcohol Comment 1 beer per month [facility] Start: 08-08-2020 End: 08-09-2020 Tobacco smoking status NHIS Former smoker [facility] Start: 06-19-2020 Alcohol Comment 1 beer per month [facility] Start: 06-25-2021 End: 10-28-2024 Tobacco Comment Trying to cut back, 6 cigs per day [facility] Start: 10-05-2023 Alcoholic beverage intake Current drinker of alcohol (finding) [facility] Start: 05-24-2019 End: 10-31-2023 Alcohol Use Disorder Identification Test - Consumption [AUDIT-C] [facility] Frequency of Alcohol Consumption Not on file [facility] Start: 09-23-2017 End: 10-29-2023 Tobacco Comment 50+ pack year history [facility] Start: 09-23-2017 Gender identity Identifies as male gender (finding) [facility] Has the electric, ga s, oil, or water company threatened to shut off services in your home in past 12Mo No [facility] (I/We) worried wheth er (my/our) food would run out before (I/we) got money to buy more. Never true [facility] Start: 12-13-2017 Sexual orientation Heterosexual (finding) [facility] How hard is it for y ou to pay for the very basics like food, housing, medical care, and heating Somewhat hard [facility] (I/We) worried wheth er (my/our) food would run out before (I/we) got money to buy more. Sometimes true [facility] Start: 07-05-2024 End: 02-01-2025 Tobacco smoking status NHIS Current some day smoker [facility] Start: 08-14-2024 End: 09-26-2024 Sex Male (finding) [facility] Start: 1960 Sex Assigned At Male [facility] Medical Equipment Procedure Code Equipment Code Equipment Origin al Text Equipment Identifier Dates Shell 54mm Sz F 4hl Acet Limited Hole Por Osseoti G7 - [id number] Start: 01-28-2021 Screw 6.5 X 30mm Acet Dome Low Profile G7 - [id number] FDA Start: 01-28-2021 Vivacit-E Vitami n E Highly Crosslinked Polytheylene Liner Neutral 40mm/F [id number] Start: 01-28-2021 Stem 14mm Ext Pr imary Tm - [id number], 36_[id number] FDA Start: 01-28-2021 Head 40mm -3.5 F em [employer] Delta [employer] - [id number]/$ [id number], 37_imp FDA Start: 01-28-2021 Goals Date Patient Goal Desired Activity /State Functional Status Date Assessment Result Facility 05-23-2024 Functional status Activity Abili ty Unable to Assess [facility] Work Phone: 05-22-2024 Functional status [facility] Work Phone: 05-18-2024 Functional status [facility] Work Phone: Mental Status Date Assessment Result Facility 06-02-2024 Cognitive function Level Of Cons ciousness Appropriate;Drowsy [facility] Work Phone: 05-23-2024 Cognitive function Voice/Name Currie C [facility] Work Phone: 05-18-2024 Cognitive function Appropriate;Cooperativ e [facility] Work Phone: Clinical Notes 09-21-2020 to 04-13-2025 Jihan Rodriguez MD - 04/13/2025 12:28 PM Elijah Colón MD - 03/14/2025 1:59 PM Jihan Michel MD - 03/03/2025 5:15 PM Erik Villa RN - 02/27/2025 1:19 PM EDT Note Date & Type Note Facility 04-13-2025 Note 330 [facility] [address] [facility] [id number] DO Tiffany Bryan MD Praveen Dubey, MD Andrew Freeman, MD David Howell, MD Vijay Kudithipudi, MD Chelsea Miller, MD Michael Siedow, MD ON TREATMENT VISIT NOTE Patient Name: Wolf Turcios Date of : 1960 Date of Service: 04/13/2025 DIAGNOSIS: Prostate cancer (HCC) [C61] STAGE: Cancer Staging Prostate cancer (HCC) Staging form: Prostate, AJCC 8th Edition - Clinical stage from 02/27/2025: Stage IIB (cT1c, cN0, cM0, PSA: 11.5, Grade Group: 2) - Signed by Jihan Rodriguez MD on 02/28/2025 TREATMENT TO DATE: Prostate 04/13/2025 Value Treatment Date Reference Point Prostate 04/13/2025 Total Dose to Date (cGy) 1,000 04/13/2025 Prescription Dose (cGy) 7,000 04/13/2025 Fractions Treated to Date 4 04/13/2025 Total Fractions Prescribed 28 04/13/2025 Prescribed Dose per Fraction (cGy) 250 04/13/2025 Elapsed Days 3 04/13/2025 Unverified data imported from [employer]. May not reflect actual given/total prescription dose. TREATMENT INTENT: Curative SYSTEMIC THERAPY: 6-month Lupron injection 03/14/2025 SUBJECTIVE Patient presents alone in clinic and is overall doing well. Patient denies any significant changes to bowel or bladder once. He has no questions or concerns. OBJECTIVE PACU Vitals 04/13/25 1101 BP: 129/89 Pulse: 99 SpO2: 95% PainLoc: Groin Objective General: NAD. LABS Lab Results Component Value Date WBC 8.80 10/31/2023 HGB 14.7 10/31/2023 HCT 46.7 10/31/2023 MCV 96.9 10/31/2023 PLT 254 10/31/2023 RBC 4.82 10/31/2023 Lab Results Component Value Date GLUCOSE 188 (H) 10/31/2023 CALCIUM 8.6 10/31/2023 NA 139 10/31/2023 K 4.4 10/31/2023 CL 99 10/31/2023 BUN 9 10/31/2023 CREATININE 0.65 (L) 10/31/2023 LABS Toxicity Assessment Gastrointestinal Diarrhea: Grade 0 General Disorders and Administration Site Conditions Fatigue: Grade 1 Renal and Urinary Urinary Frequency: Grade 0 Urinary Tract Pain: Grade 0 IMAGING AND SETUP Daily imaging reviewed, patient has been lining up well to date. Assessment: The patient is tolerating treatment as expected based on radiation dose to date. Plan: We will continue radiation therapy as planned, to a dose of 70 Gy. We will follow up next week or sooner if needed. Orders Placed This Encounter Radiation Therapy - unverified data imported from [facility] Please let me know if you have any questions. Jihan Rodriguez M.D. Radiation Oncology 12:28 PM, 04/13/25 AUTHENTICATED BY JIHAN RODRIGUEZ, ON 04/13/2025 12:37:06 [facility] 04-13-2025 History of Present illness Narrative Images from the original note were not included. [address] [facility] [address] [facility] [id number] DO Tiffany Bryan MD Praveen Dubey, MD Andrew Freeman, MD David Howell, MD Vijay Kudithipudi, MD Chelsea Miller, MD Michael Siedow, MD ON TREATMENT VISIT NOTE Patient Name: Wolf Turcios Date of : 1960 Date of Service: 04/13/2025 DIAGNOSIS: Prostate cancer (HCC) [C61] STAGE: Cancer Staging Prostate cancer (HCC) Staging form: Prostate, AJCC 8th Edition - Clinical stage from 02/27/2025: Stage IIB (cT1c, cN0, cM0, PSA: 11.5, Grade Group: 2) - Signed by Jihan Rodriguez MD on 02/28/2025 TREATMENT TO DATE: Prostate 04/13/2025 Value Treatment Date Reference Point Prostate 04/13/2025 Total Dose to Date (cGy) 1,000 04/13/2025 Prescription Dose (cGy) 7,000 04/13/2025 Fractions Treated to Date 4 04/13/2025 Total Fractions Prescribed 28 04/13/2025 Prescribed Dose per Fraction (cGy) 250 04/13/2025 Elapsed Days 3 04/13/2025 Unverified data imported from [facility]. May not reflect actual given/total prescription dose. TREATMENT INTENT: Curative SYSTEMIC THERAPY: 6-month Lupron injection 03/14/2025 SUBJECTIVE Patient presents alone in clinic and is overall doing well. Patient denies any significant changes to bowel or bladder once. He has no questions or concerns. OBJECTIVE PACU Vitals 04/13/25 1101 BP: 129/89 Pulse: 99 SpO2: 95% PainLoc: Groin Objective General: NAD. LABS Lab Results Component Value Date WBC 8.80 10/31/2023 HGB 14.7 10/31/2023 HCT 46.7 10/31/2023 MCV 96.9 10/31/2023 PLT 254 10/31/2023 RBC 4.82 10/31/2023 Lab Results Component Value Date GLUCOSE 188 (H) 10/31/2023 CALCIUM 8.6 10/31/2023 NA 139 10/31/2023 K 4.4 10/31/2023 CL 99 10/31/2023 BUN 9 10/31/2023 CREATININE 0.65 (L) 10/31/2023 LABS Toxicity Assessment Gastrointestinal Diarrhea: Grade 0 General Disorders and Administration Site Conditions Fatigue: Grade 1 Renal and Urinary Urinary Frequency: Grade 0 Urinary Tract Pain: Grade 0 IMAGING AND SETUP Daily imaging reviewed, patient has been lining up well to date. Assessment: The patient is tolerating treatment as expected based on radiation dose to date. Plan: We will continue radiation therapy as planned, to a dose of 70 Gy. We will follow up next week or sooner if needed. Orders Placed This Encounter Radiation Therapy - unverified data imported from [employer] Please let me know if you have any questions. Jihan Rodriguez M.D. Radiation Oncology 12:28 PM, 04/13/25 documented in this encounter [facility] 03-23-2025 Note Chief Complaint Prostate cancer HPI Mr. Turcios is a 64 y.o. male with history of newly diagnosed prostate cancer set to start radiation therapy who comes in today to establish care Patient was managed by Dr. Sanchez Last seen last week started on Lupron Set to see to close he does start radiation therapy locally Has LUTS currently on Flomax Localized prostate cancer. cT1c PSA 8.8-11.5 GG2 disease. PI-RADS 5 lesion target. MRI with normal margins. Vol 29 cc. Normal bones and LN IPSS: 21/5 Weak stream, straining, frequency and nocturia x2. Taking flomax. No significant benefit. No erectile dysfunction. No medications. Surgical Hx: ex lap- PUD repair-gastric Medical Hx: COPD- intermittent oxygen. GERD, TIA Social Hx: active smoker. Past Medical History Past Medical History: Diagnosis Date Arthritis Asthma Cataract Bilat- s/p Right eye laser Chest pain +ED 09/21/20- Troponin and Chest CT-Neg for PE showed pneuomia and emphysema Cocaine abuse in remission (HCC) None since 2016- now on suboxone COPD (chronic obstructive pulmonary disease) (HCC) Multiple ED visits- last 08/2020 Edema BLE + ED visit 07/25/20 Emphysema of lung (HCC) Severe Essential hypertension 01/10/2017 Hyperlipidemia Neck pain Peptic ulcer disease Prostate cancer (HCC) PUD (peptic ulcer disease) Sepsis due to pneumonia ([facility]) 04/2020 Multiple ED visits- last 08/2020. Saw Pulm Dr Hollis while IP 04/20/20 Testicular abnormality Thoracic aortic aneurysm States d/t drug overdose TIA (transient ischemic attack) Tobacco abuse Past Surgical History He has a past surgical history that includes Gastric Ulcer Perforation Repair; Eye surgery (Right); Arthroplasty Hip Total (Right, 01/28/2021); Prostate biopsy; Testicle surgery; and Hernia repair. Medications He has a current medication list which includes the following prescription(s): albuterol, amlodipine, benzonatate, cholecalciferol (vitamin d3), ciprofloxacin hcl, cyclobenzaprine, diphenhydramine, fexofenadine, furosemide, guaifenesin, ipratropium, ipratropium-albuterol, levofloxacin, lisinopril, lisinopril, loratadine, montelukast, omeprazole, oxygen-air delivery systems, potassium chloride sa, tamsulosin, tramadol, and trelegy ellipta. Allergies Allergies[1] Social History He reports that he has been smoking cigarettes. He started smoking about 56 years ago. He has a 14 pack-year smoking history. He has never used smokeless tobacco. He reports that he does not currently use alcohol. He reports that he does not currently use drugs after having used the following drugs: Crack cocaine and Marijuana. Family History He has no family history of prostate, bladder or kidney cancer He has no family history of kidney stones Review of Systems Constitutional: No fevers or chills Skin: Negative for rash Endocrine: No heat/cold intolerance Cardiovascular: Negative for chest pain or dyspnea on exertion Respiratory: Negative for shortness of breath or wheezing Gastrointestinal: No constipation, nausea or vomiting Genitourinary:See HPI Musculoskeletal: No flank pain Neurological: Negative for frequent headaches or dizziness Lymph/Heme: Negative for leg swelling or calf pain. Physical Exam BP (!) 133/95 (BP Location: Right arm, Patient Position: Sitting) Pulse 97 SpO2 95% Comment: oxygen via NC at 2L Constitutional: NAD, WDWN. HEENT: NCAT. Conjunctivae normal. MMM. Cardiovascular: Regular rate. Pulmonary/Chest: Respirations are even and non-labored bilaterally. Abdominal: Soft. No distension, tenderness, masses or guarding. No CVA tenderness. Neurological: A + O x 3. Cranial Nerves II-XII grossly intact. Normal gait. Extremities: RAVINDER x 4, Warm. No clubbing. No cyanosis. Skin: [employer], warm and dry. No rashes noted. Psychiatric: Normal mood and affect Genitourinary: deferred today Labs Lab Results Component Value Date WBC 8.80 10/31/2023 HGB 14.7 10/31/2023 HCT 46.7 10/31/2023 MCV 96.9 10/31/2023 PLT 254 10/31/2023 Lab Results Component Value Date GLUCOSE 188 (H) 10/31/2023 CALCIUM 8.6 10/31/2023 NA 139 10/31/2023 K 4.4 10/31/2023 CL 99 10/31/2023 BUN 9 10/31/2023 CREATININE 0.65 (L) 10/31/2023 No results found for this or any previous visit (from the past 24 hours). Radiologic Studies No results found. Assessment Mr. Turcios is a 64 y.o. male who presents with newly diagnosed prostate cancer set to start radiation therapy. He met with Dr. Alonzo last week and received injection of Lupron He was supposed to start radiation therapy here in [place] but was told due to his insurance there might be some obstacles I will reach out to Dr. Rodriguez to clarify Plan 1. Follow-up with radiation oncology for his radiation therapy initiation. No further follow-up with me needed. He can see our nurse practitioner down the road should he have any concerns No order (more content not included)... [facility] 03-14-2025 Note Chief complaint: pro state cancer History of Present Illness Wolf Turcios is a 64 y.o. male who presents for follow up. Localized prostate cancer. cT1c PSA 8.8-11.5 GG2 disease. PI-RADS 5 lesion target. MRI with normal margins. Vol 29 cc. Normal bones and LN IPSS: 21/5 Weak stream, straining, frequency and nocturia x2. Taking flomax. No significant benefit. No erectile dysfunction. No medications. Surgical Hx: ex lap- PUD repair-gastric Medical Hx: COPD- intermittent oxygen. GERD, TIA Social Hx: active smoker. Review of Systems ROS negative for HEENT, respiratory, cardiovascular, gastrointestinal, endocrine, hematology, lymphatic, neurologic, psychiatric, skin, and musculo-skeletal systems except as otherwise documented in HPI. Medical / Surgical History Patient has a past medical history of Arthritis, Asthma, Cataract, Chest pain, Cocaine abuse in remission ([facility]), COPD (chronic obstructive pulmonary disease) ([facility]), Edema, Emphysema of lung ([facility]), Essential hypertension (01/10/2017), Hyperlipidemia, Neck pain, Peptic ulcer disease, Prostate cancer ([facility]), PUD (peptic ulcer disease), Sepsis due to pneumonia ([facility]) (04/2020), Testicular abnormality, Thoracic aortic aneurysm, TIA (transient ischemic attack), and Tobacco abuse. Patient has a past surgical history that includes Gastric Ulcer Perforation Repair; Eye surgery (Right); Arthroplasty Hip Total (Right, 01/28/2021); Prostate biopsy; Testicle surgery; and Hernia repair. Medications Current Outpatient Medications Medication Instructions albuterol 90 mcg/actuation inhaler INHALE 2 PUFFS THREE TIMES DAILY NEEDED amLODIPine (NORVASC) 5 mg, Daily benzonatate (TESSALON) 100 mg, 2 times daily cholecalciferol, vitamin D3, 5,000 unit Tab tablet 1 tablet, Daily ciprofloxacin HCl (CILOXAN) 0.3 % ophthalmic solution instill 1 drop into the affected eye FOUR TIMES DAILY for TEN days. cyclobenzaprine (FLEXERIL) 10 mg, Every 12 hours PRN diphenhydrAMINE (BENADRYL) 50 mg fexofenadine (CHOLO) 180 mg, Daily furosemide (LASIX) 20 mg, Daily guaiFENesin (MUCINEX) 600 mg, Oral, 2 times daily ipratropium (ATROVENT) 42 mcg (0.06 %) nasal spray 2 SPRAYS IN EACH NOSTRIL THREE TIMES DAILY NEEDED ipratropium-albuteroL (DUO-NEB) 0.5-2.5 mg/3 ml nebulizer 3 mL, Nebulization, Every 6 hours PRN levoFLOXacin (LEVAQUIN) 750 mg, Oral, Daily, Start day prior to prostate biopsy. lisinopriL (PRINIVIL,ZESTRIL) 20 mg, Daily lisinopriL (PRINIVIL,ZESTRIL) 10 mg, Daily loratadine (CLARITIN) 10 mg, Daily PRN montelukast (SINGULAIR) 10 mg, Daily omeprazole (PRILOSEC) 20 mg, Daily OXYGEN-AIR DELIVERY SYSTEMS MISC As needed potassium chloride SA (K-DUR,KLOR-CON) 20 MEQ tablet 20 mEq, Every morning tamsulosin (FLOMAX) 0.8 mg, Oral, Every morning before breakfast traMADol (ULTRAM) 50 mg, Every 6 hours PRN Trelegy Ellipta 100-62.5-25 mcg DsDv 1 puff, Daily Allergies Ibuprofen, Lisinopril, and Codeine Social / Family History Patient reports that he has been smoking cigarettes. He started smoking about 56 years ago. He has a 14 pack-year smoking history. He has never used smokeless tobacco. He reports that he does not currently use alcohol. He reports that he does not currently use drugs after having used the following drugs: Crack cocaine and Marijuana. Patient's family history includes Diabetes in his father and mother; Heart attack in his maternal grandmother; Throat cancer in his sister. The following portions of the patient's history were reviewed and updated as appropriate: past medical history, past surgical history, current medications, allergies, past social history, past family history, problem list. Physical exam PACU Vitals 03/14/25 1357 BP: 131/85 Pulse: 92 Resp: 18 General: No acute distress CV: Regular rate rhythm Pulm: Equal chest rise normal effort, nasal cannula oxygen Neuro: No focal deficits, alert and oriented. Moves all extremities. Extremities: No lower extremity edema. Labs Lab Results Component Value Date WBC 8.80 10/31/2023 HGB 14.7 10/31/2023 HCT 46.7 10/31/2023 MCV 96.9 10/31/2023 PLT 254 10/31/2023 RBC 4.82 10/31/2023 Lab Results Component Value Date GLUCOSE 188 (H) 10/31/2023 CALCIUM 8.6 10/31/2023 NA 139 10/31/2023 K 4.4 10/31/2023 CL 99 10/31/2023 BUN 9 10/31/2023 CREATININE 0.65 (L) 10/31/2023 PSA 8.8 Pathology: Final Diagnosis Prostate, needle core biopsy: Prostatic adenocarcinoma, Maryse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 45% [place] pattern 4. Cribriform growth pattern identified. Questionnaires: IPSS Questionnaire (AUA-7): Over the past month... 1) How often have you had a sensation of not emptying your bladder completely after you finish urinating? 5 - Almost always 2) How often have you had to urinate again less than two hours after you finished urinating? 5 - Almost always (more content not included)... [facility] 03-14-2025 History of Present illness Narrative Chief complaint: prostate cancer History of Present Illness Wolf Turcios is a 64 y.o. male who presents for follow up. Localized prostate cancer. cT1c PSA 8.8-11.5 GG2 disease. PI-RADS 5 lesion target. MRI with normal margins. Vol 29 cc. Normal bones and LN IPSS: 21/5 Weak stream, straining, frequency and nocturia x2. Taking flomax. No significant benefit. No erectile dysfunction. No medications. Surgical Hx: ex lap- PUD repair-gastric Medical Hx: COPD- intermittent oxygen. GERD, TIA Social Hx: active smoker. Review of Systems ROS negative for HEENT, respiratory, cardiovascular, gastrointestinal, endocrine, hematology, lymphatic, neurologic, psychiatric, skin, and musculo-skeletal systems except as otherwise documented in HPI. Medical / Surgical History Patient has a past medical history of Arthritis, Asthma, Cataract, Chest pain, Cocaine abuse in remission ([facility]), COPD (chronic obstructive pulmonary disease) ([facility]), Edema, Emphysema of lung ([facility]), Essential hypertension (01/10/2017), Hyperlipidemia, Neck pain, Peptic ulcer disease, Prostate cancer (HCC), PUD (peptic ulcer disease), Sepsis due to pneumonia ([facility]) (04/2020), Testicular abnormality, Thoracic aortic aneurysm, TIA (transient ischemic attack), and Tobacco abuse. Patient has a past surgical history that includes Gastric Ulcer Perforation Repair; Eye surgery (Right); Arthroplasty Hip Total (Right, 01/28/2021); Prostate biopsy; Testicle surgery; and Hernia repair. Medications Current Outpatient Medications Medication Instructions albuterol 90 mcg/actuation inhaler INHALE 2 PUFFS THREE TIMES DAILY NEEDED amLODIPine (NORVASC) 5 mg, Daily benzonatate (TESSALON) 100 mg, 2 times daily cholecalciferol, vitamin D3, 5,000 unit Tab tablet 1 tablet, Daily ciprofloxacin HCl (CILOXAN) 0.3 % ophthalmic solution instill 1 drop into the affected eye FOUR TIMES DAILY for TEN days. cyclobenzaprine (FLEXERIL) 10 mg, Every 12 hours PRN diphenhydrAMINE (BENADRYL) 50 mg fexofenadine (CHOLO) 180 mg, Daily furosemide (LASIX) 20 mg, Daily guaiFENesin (MUCINEX) 600 mg, Oral, 2 times daily ipratropium (ATROVENT) 42 mcg (0.06 %) nasal spray 2 SPRAYS IN EACH NOSTRIL THREE TIMES DAILY NEEDED ipratropium-albuteroL (DUO-NEB) 0.5-2.5 mg/3 ml nebulizer 3 mL, Nebulization, Every 6 hours PRN levoFLOXacin (LEVAQUIN) 750 mg, Oral, Daily, Start day prior to prostate biopsy. lisinopriL (PRINIVIL,ZESTRIL) 20 mg, Daily lisinopriL (PRINIVIL,ZESTRIL) 10 mg, Daily loratadine (CLARITIN) 10 mg, Daily PRN montelukast (SINGULAIR) 10 mg, Daily omeprazole (PRILOSEC) 20 mg, Daily OXYGEN-AIR DELIVERY SYSTEMS MISC As needed potassium chloride SA (K-DUR,KLOR-CON) 20 MEQ tablet 20 mEq, Every morning tamsulosin (FLOMAX) 0.8 mg, Oral, Every morning before breakfast traMADol (ULTRAM) 50 mg, Every 6 hours PRN Trelegy Ellipta 100-62.5-25 mcg DsDv 1 puff, Daily Allergies Ibuprofen, Lisinopril, and Codeine Social / Family History Patient reports that he has been smoking cigarettes. He started smoking about 56 years ago. He has a 14 pack-year smoking history. He has never used smokeless tobacco. He reports that he does not currently use alcohol. He reports that he does not currently use drugs after having used the following drugs: Crack cocaine and Marijuana. Patient's family history includes Diabetes in his father and mother; Heart attack in his maternal grandmother; Throat cancer in his sister. The following portions of the patient's history were reviewed and updated as appropriate: past medical history, past surgical history, current medications, allergies, past social history, past family history, problem list. Physical exam PACU Vitals 03/14/25 1357 BP: 131/85 Pulse: 92 Resp: 18 General: No acute distress CV: Regular rate rhythm Pulm: Equal chest rise normal effort, nasal cannula oxygen Neuro: No focal deficits, alert and oriented. Moves all extremities. Extremities: No lower extremity edema. Labs Lab Results Component Value Date WBC 8.80 10/31/2023 HGB 14.7 10/31/2023 HCT 46.7 10/31/2023 MCV 96.9 10/31/2023 PLT 254 10/31/2023 RBC 4.82 10/31/2023 Lab Results Component Value Date GLUCOSE 188 (H) 10/31/2023 CALCIUM 8.6 10/31/2023 NA 139 10/31/2023 K 4.4 10/31/2023 CL 99 10/31/2023 BUN 9 10/31/2023 CREATININE 0.65 (L) 10/31/2023 PSA 8.8 Pathology: Final Diagnosis Prostate, needle core biopsy: Prostatic adenocarcinoma, 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 45% Maryse pattern 4. Cribriform growth pattern identified. Questionnaires: IPSS Questionnaire (AUA-7): Over the past month 1) How often have you had a sensation of not emptying your bladder completely after you finish urinating? 5 - Almost always 2) How often have you had to urinate again less than two hours after you finished urinating? 5 - Almost always 3) How often have you found you stopped and started again several times when you urinated? 3 - About half the time 4) How difficult have you found it to postpone urination? 0 - Not at all 5) How often have you had a weak urinary stream? 2 - Less than half the time 6) How often have you had to push or strain to begin urination? 3 - About half the time 7) How many times did you most typically get up to urinate from the time you went to bed until the time you got up in the morning? 3 - 3 times Total score: 21/5 0-7 mildly symptomatic 8-19 moderately symptomatic 20-35 severely symptomatic Imaging: MRI prostate 01/05/2025 FINDINGS: Prostate: Measures 4.6 x 3.7 x 3.3 cm for a gland volume of 29 mL. Extending from the apex mid gland at the junction of the left peripheral and transition zones, there is marked restricted diffusion and abnormal enhancement associated with crescentic moderate T2 hypointense signal measuring 2.3 x 1.6 x 0.8 cm. Mild transition zone hyperplasia. Prostate capsule is intact. Seminal vesicles: Unremarkable. Neurovascular bundle: Unremarkable. Lymphadenopathy: No lymphadenopathy. Bladder: Not well distended. Bowel: The visualized bowel is unremarkable. Bones/Soft tissues: No suspicious osseous lesion. Degenerative changes of the lower lumbar spine. Susceptibility artifact from right hip arthroplasty. Moderate bilateral scrotal hydroceles. IMPRESSION: A PI-RADS 5 nodule at the junction of the left peripheral and transition zones extending from the apex to the mid gland measures up to 2.3 cm. Diagnosis Prostate cancer Stage: Clinical T1c NCCN: Favorable intermediate Assessment Wolf Turcios is a 64 y.o. male with unfavorable intermediate risk localized prostate cancer. He is elected to manage his disease with radiation therapy along with short course 6-month ADT after consultation with radiation oncology. He did additionally have some high risk features with cribriform pattern and elevated PSA density. He was given his 6-month Lupron shot today and will start radiation in the following weeks with radiation oncology. Maryse Grade Group: 2 PSA: 11.5 ng/ml Pathology cores: Left apex to mid Staging imaging: MRI negative Plan: Lupron 45 mg intramuscular Depo today Follow-up with radiation oncology for treatment and PSA surveillance Continue tamsulosin through therapy Follow-up with me as needed Elijah Sanchez MD documented in this encounter [facility] 03-03-2025 Note Radiation Oncology N ote: Patient Name: Wolf Turcios Date of : 1960 Patient successfully completed his radiation planning scan today. Repeat PSA was elevated (>10) along with grade group 2 disease thus making the patient unfavorable intermediate risk per NCCN criteria. I discussed with the patient that the standard of care would be to include a 6-month Lupron injection in conjunction with his radiation therapy. The patient voiced understanding and was in agreement. The patient has follow-up with urology who will administer this in the coming weeks. We will start his radiation therapy after ADT is administered. The patient has completed MRI prostate imaging with and without contrast which found no pelvic lymphadenopathy. I personally reviewed this imaging and agree with the radiology impression. Additionally, on the patient's planning scan today (without contrast), I did not visualize any pelvic lymphadenopathy. Per the MSK preradical prostatectomy nomogram the patient's risk of lymph node involvement is 12% and I will plan for definitive radiation to the patient's prostate and proximal seminal vesicles and omit pelvic radiation therapy. Please let me know if you have any questions. Jihan Rodriguez M.D. Radiation Oncology 5:15 PM, 03/03/25 AUTHENTICATED BY JIHAN RODRIGUEZ, ON 03/03/2025 17:23:59 [facility] 03-03-2025 History of Present illness Narrative Radiation Oncology Note: Patient Name: Wolf Turcios Date of : 1960 Patient successfully completed his radiation planning scan today. Repeat PSA was elevated (>10) along with grade group 2 disease thus making the patient unfavorable intermediate risk per NCCN criteria. I discussed with the patient that the standard of care would be to include a 6-month Lupron injection in conjunction with his radiation therapy. The patient voiced understanding and was in agreement. The patient has follow-up with urology who will administer this in the coming weeks. We will start his radiation therapy after ADT is administered. The patient has completed MRI prostate imaging with and without contrast which found no pelvic lymphadenopathy. I personally reviewed this imaging and agree with the radiology impression. Additionally, on the patient's planning scan today (without contrast), I did not visualize any pelvic lymphadenopathy. Per the MSK preradical prostatectomy nomogram the patient's risk of lymph node involvement is 12% and I will plan for definitive radiation to the patient's prostate and proximal seminal vesicles and omit pelvic radiation therapy. Please let me know if you have any questions. Jihan Rodriguez M.D. Radiation Oncology 5:15 PM, 03/03/25 documented in this encounter [facility] 02-27-2025 Note [facility] RADIATION ONCOLOGY [address] [facility] [address] Dept: [phone] Dept Loc: [phone] DO Tiffany Bryan MD Praveen Dubey, MD Andrew Freeman, MD David Howell, MD Vijay Kudithipudi, MD Chelsea Miller, MD Michael Siedow, MD Radiation Oncology New Patient Evaluation Patient Name: Wolf Turcios Date of : 1960 Date of Service: 02/27/2025 Diagnosis: Prostate cancer (HCC) [C61] Cancer Staging Prostate cancer ([facility]) Staging form: Prostate, AJCC 8th Edition - Clinical stage from 02/27/2025: Stage IIB (cT1c, cN0, cM0, PSA: 8.8, Grade Group: 2) - Signed by Jihan Rodriguez MD on 02/27/2025 ECOG Performance 1 - Restricted in physically strenuous activity but ambulatory and able to carry out work of a light or sedentary nature, e.g., light house work, office work Patient Identification: Wolf Turcios is a 64 y.o. male with a medical history with prior abdominal/pelvic surgeries and substance abuse recently diagnosed with unfavorable intermediate risk prostate cancer (GG 2, cT1c, PSA 11.50) who presents to discuss treatment recommendations. Recommendations: I had a detailed discussion with the patient regarding the role of radiation therapy in the management of prostate cancer. The patient was referred to me by my colleagues in urology and the patient was not interested in surgery given the sexual and urinary side effects associated with a radical prostatectomy in addition to having had several prior abdominal/pelvic surgeries. Patient has moderate to severe urinary symptoms and had an IPSS score of 21 at the time of consultation with urology, his IPSS was 8 in clinic this afternoon however he endorsed at least moderate urinary symptoms including a weak stream and incomplete emptying while on Flomax and I did not believe the patient is an ideal candidate for ultra hypofractionated radiation therapy (SBRT). Based on the available pathology, imaging, and patient's clinical course recommend moderately hypofractionated external beam radiation therapy targeting the patient's prostate totaling 7000 cGy in 28 fractions. Following consultation the patient Potential radiation-related toxicities, outlined below, were discussed in detail with the patient and they signed a treatment consent at the conclusion of the patient encounter. The patient was provided my contact information if they have any questions or concerns going forward. The logistics of radiation therapy, side effects and complications were discussed in detail with the patient at the time of this consultation. We explained the logistics of external beam radiation therapy including simulation for radiation therapy planning, with prostate fiducial and Space OAR placement prior to simulation if warranted for the patient's case. The side effects of radiation therapy were also explained to the patient, including but not limited to, acute side effects in the form of fatigue, increased urinary symptoms, loose stools or diarrhea, and late side effects in the form of change in urination/bowel habits, erectile dysfunction, radiation proctitis, radiation cystitis, and rarely, secondary malignancy. The patient indicated that he understood the recommendations and would like to proceed with treatment. All of the patient's questions were answered to his satisfaction. History Patient completed MRI prostate on 01/05/2025 which identified a PI-RADS 5 nodule at the junction of the left peripheral and transitional zones extending from the apex to mid gland measuring 2.3 cm. There was no pelvic lymphadenopathy or seminal vesicle involvement. The prostate capsule is intact. I personally reviewed these images and agree with radiology impression as stated. Patient underwent a MRI directed prostate core needle biopsy on 02/01/2025 which identified grade group 2 disease involving 6 of 6 cores targeting the PI-RADS 5 lesion along the left peripheral/transitional zone mid apex. On SCOTT the patient had a mobile gland, there were no abnormal findings on ultrasound. Prostate volume 29 cc. Patient was evaluated by oncology urology, PSA was 8.8 prior to biopsy and he was classified as cT1c. IPSS 21 with weak stream, straining, frequency/nocturia x 2 and had taken Flomax with no significant benefit. Patient appeared to be a surgical candidate from the urology provider's note however was referred to radiation oncology to discuss definitive management. Review of Systems Review of Systems Erik Bridges RN 02/27/2025 1:25 PM Signed Review of Systems Constitutional: Negative. HENT: Positive for trouble swallowing. Eyes: Positive for eye problems. Cataract surgery Respiratory: Positive for cough and shortness of breath. Cardiovascular: Negative. Gastrointestinal: Positive for constipation. Endocrine: Ne (more content not included)... [facility] 02-27-2025 History of Present illness Narrative Images from the original note were not included. [facility] RADIATION ONCOLOGY [address] [facility] [address] Dept: [phone] Dept Loc: [phone] DO Tiffany Bryan MD Praveen Dubey, MD Andrew Freeman, MD David Howell, MD Vijay Kudithipudi, MD Chelsea Miller, MD Michael Siedow, MD Radiation Oncology New Patient Evaluation Patient Name: Wolf Turcios Date of : 1960 Date of Service: 02/27/2025 Diagnosis: Prostate cancer (HCC) [C61] Cancer Staging Prostate cancer ([facility]) Staging form: Prostate, AJCC 8th Edition - Clinical stage from 02/27/2025: Stage IIB (cT1c, cN0, cM0, PSA: 8.8, Grade Group: 2) - Signed by Jihan Rodriguez MD on 02/27/2025 ECOG Performance 1 - Restricted in physically strenuous activity but ambulatory and able to carry out work of a light or sedentary nature, e.g., light house work, office work Patient Identification: Wolf Turcios is a 64 y.o. male with a medical history with prior abdominal/pelvic surgeries and substance abuse recently diagnosed with favorable intermediate risk prostate cancer (GG 2, cT1c, PSA 0.8) who presents to discuss treatment recommendations. Recommendations: I had a detailed discussion with the patient regarding the role of radiation therapy in the management of prostate cancer. The patient was referred to me by my colleagues in urology and the patient was not interested in surgery given the sexual and urinary side effects associated with a radical prostatectomy in addition to having had several prior abdominal/pelvic surgeries. Patient has moderate to severe urinary symptoms and had an IPSS score of 21 at the time of consultation with urology, his IPSS was 8 in clinic this afternoon however he endorsed at least moderate urinary symptoms including a weak stream and incomplete emptying while on Flomax and I did not believe the patient is an ideal candidate for ultra hypofractionated radiation therapy (SBRT). Based on the available pathology, imaging, and patient's clinical course recommend moderately hypofractionated external beam radiation therapy targeting the patient's prostate totaling 7000 cGy in 28 fractions. The patient's staging workup is complete and I will obtain a new PSA to ensure this is below than <10. There is no concerning findings on the patient's most recent MRI prostate imaging from 01/05/2025 which I personally reviewed. Potential radiation-related toxicities, outlined below, were discussed in detail with the patient and they signed a treatment consent at the conclusion of the patient encounter. The patient was provided my contact information if they have any questions or concerns going forward. The logistics of radiation therapy, side effects and complications were discussed in detail with the patient at the time of this consultation. We explained the logistics of external beam radiation therapy including simulation for radiation therapy planning, with prostate fiducial and Space OAR placement prior to simulation if warranted for the patient's case. The side effects of radiation therapy were also explained to the patient, including but not limited to, acute side effects in the form of fatigue, increased urinary symptoms, loose stools or diarrhea, and late side effects in the form of change in urination/bowel habits, erectile dysfunction, radiation proctitis, radiation cystitis, and rarely, secondary malignancy. The patient indicated that he understood the recommendations and would like to proceed with treatment. All of the patient's questions were answered to his satisfaction. History Patient completed MRI prostate on 01/05/2025 which identified a PI-RADS 5 nodule at the junction of the left peripheral and transitional zones extending from the apex to mid gland measuring 2.3 cm. There was no pelvic lymphadenopathy or seminal vesicle involvement. The prostate capsule is intact. I personally reviewed these images and agree with radiology impression as stated. Patient underwent a MRI directed prostate core needle biopsy on 02/01/2025 which identified grade group 2 disease involving 6 of 6 cores targeting the PI-RADS 5 lesion along the left peripheral/transitional zone mid apex. On SCOTT the patient had a mobile gland, there were no abnormal findings on ultrasound. Prostate volume 29 cc. Patient was evaluated by oncology urology, PSA was 8.8 prior to biopsy and he was classified as cT1c. IPSS 21 with weak stream, straining, frequency/nocturia x 2 and had taken Flomax with no significant benefit. Patient appeared to be a surgical candidate from the urology provider's note however was referred to radiation oncology to discuss definitive management. Review of Systems Review of Systems Erik Bridges RN 02/27/2025 1:25 PM Signed Review of Systems Constitutional: Negative. HENT: Positive for trouble swallowing. Eyes: Positive for eye problems. Cataract surgery Respiratory: Positive for cough and shortness of breath. Cardiovascular: Negative. Gastrointestinal: Positive for constipation. Endocrine: Negative. Genitourinary: Positive for difficulty urinating and pelvic pain. Musculoskeletal: Positive for back pain. Skin: Negative. Neurological: Negative. Hematological: Negative. Psychiatric/Behavioral: The patient is nervous/anxious. Prior Radiation History Patient did not endorse prior radiation therapy. Past Medical History Past Medical History: No date: Arthritis No date: Asthma No date: Cataract Comment: Bilat- s/p Right eye laser No date: Chest pain Comment: +ED 09/21/20- Troponin and Chest CT-Neg for PE showed pneuomia and emphysema No date: Cocaine abuse in remission ([facility]) Comment: None since 2015- now on suboxone No date: COPD (chronic obstructive pulmonary disease) ([facility]) Comment: Multiple ED visits- last 08/2020 No date: Edema Comment: BLE + ED visit 07/25/20 No date: Emphysema of lung ([facility]) Comment: Severe 01/10/2017: Essential hypertension No date: Hyperlipidemia No date: Neck pain No date: Peptic ulcer disease No date: Prostate cancer ([facility]) No date: PUD (peptic ulcer disease) 04/2020: Sepsis due to pneumonia ([facility]) Comment: Multiple ED visits- last 08/2020. Saw Pulm Dr Hollis while IP 04/20/20 No date: Testicular abnormality No date: Thoracic aortic aneurysm Comment: States d/t drug overdose No date: TIA (transient ischemic attack) No date: Tobacco abuse Past Surgical History has a past surgical history that includes Gastric Ulcer Perforation Repair; Eye surgery (Right); Arthroplasty Hip Total (Right, 01/28/2021); Prostate biopsy; Testicle surgery; and Hernia repair. Medications Patient's Medications New Prescriptions No medications on file Previous Medications ALBUTEROL 90 MCG/ACTUATION INHALER INHALE 2 PUFFS THREE TIMES DAILY NEEDED AMLODIPINE (NORVASC) 5 MG TABLET Take 1 (one) tablet (5 mg total) by mouth daily . BENZONATATE (TESSALON) 100 MG CAPSULE Take 1 (one) capsule (100 mg total) by mouth 2 (two) times a day . CHOLECALCIFEROL, VITAMIN D3, 5,000 UNIT TAB TABLET Take 1 (one) tablet (5,000 Units total) by mouth daily . CIPROFLOXACIN HCL (CILOXAN) 0.3 % OPHTHALMIC SOLUTION instill 1 drop into the affected eye FOUR TIMES DAILY for TEN days. CYCLOBENZAPRINE (FLEXERIL) 10 MG TABLET Take 1 (one) tablet (10 mg total) by mouth every 12 (twelve) hours as needed for muscle spasms . DIPHENHYDRAMINE (BENADRYL) 25 MG CAPSULE 2 (two) capsules (50 mg total) . FEXOFENADINE (CHOLO) 180 MG TABLET Take 1 (one) tablet (180 mg total) by mouth daily . FUROSEMIDE (LASIX) 20 MG TABLET Take 1 (one) tablet (20 mg total) by mouth daily . GUAIFENESIN (MUCINEX) 600 MG 12 HR TABLET Take 1 (one) tablet (600 mg total) by mouth 2 (two) times a day . IPRATROPIUM (ATROVENT) 42 MCG (0.06 %) NASAL SPRAY 2 SPRAYS IN EACH NOSTRIL THREE TIMES DAILY NEEDED IPRATROPIUM-ALBUTEROL (DUO-NEB) 0.5-2.5 MG/3 ML NEBULIZER Take 3 mL by nebulization every 6 (six) hours as needed for wheezing or shortness of breath . LEVOFLOXACIN (LEVAQUIN) 750 MG TABLET Take 1 (one) tablet (750 mg total) by mouth daily Start day prior to prostate biopsy. . LISINOPRIL (PRINIVIL,ZESTRIL) 10 MG TABLET Take 1 (one) tablet (10 mg total) by mouth daily Total of 30mg . LISINOPRIL (PRINIVIL,ZESTRIL) 20 MG TABLET Take 1 (one) tablet (20 mg total) by mouth daily Total of 30mg . LORATADINE (CLARITIN) 10 MG TABLET Take 1 (one) tablet (10 mg total) by mouth daily as needed . MONTELUKAST (SINGULAIR) 10 MG TABLET Take 1 (one) tablet (10 mg total) by mouth daily . OMEPRAZOLE (PRILOSEC) 20 MG CAPSULE Take 1 (one) capsule (20 mg total) by mouth daily . OXYGEN-AIR DELIVERY SYSTEMS MISC by continuous inhalation route as needed (Not using oxygen tanks, unknown #L) . POTASSIUM CHLORIDE SA (K-DUR,KLOR-CON) 20 MEQ TABLET Take 1 (one) tablet (20 mEq total) by mouth every morning . TAMSULOSIN (FLOMAX) 0.4 MG CAPSULE Take 2 (two) capsules (0.8 mg total) by mouth every morning before breakfast . TRAMADOL (ULTRAM) 50 MG TABLET Take 1 (one) tablet (50 mg total) by mouth every 6 (six) hours as needed . TRELEGY ELLIPTA 100-62.5-25 MCG DSDV 1 puff by Oral Inhalation route daily . Modified Medications No medications on file Discontinued Medications No medications on file Allergies Allergies: Ibuprofen and Codeine Social History reports that he has been smoking cigarettes. He started smoking about 56 years ago. He has a 14 pack-year smoking history. He has never used smokeless tobacco. He reports that he does not currently use alcohol. He reports that he does not currently use drugs after having used the following drugs: Crack cocaine and Marijuana. Family History Cancer-related family history is not on file. Physical Exam PACU Vitals 02/27/25 1326 BP: 104/65 Pulse: (!) 100 SpO2: 94% PainLoc: Groin Physical Exam Objective PHYSICAL EXAM BP 104/65 (BP Location: Left arm) Pulse (!) 100 Wt 75.8 kg (167 lb) SpO2 94% BMI 22.03 kg/m ECOG Performance 1 - Restricted in physically strenuous activity but ambulatory and able to carry out work of a light or sedentary nature, e.g., light house work, office work General: NAD, patient well appearing. CV: Regular rate. Resp: Breathing is non-labored. Breathing comfortably on RA. Abdomen: Soft, ND. Extremities: No acute findings. No edema Skin: Color, texture and turgor wnl. No rashes and lesions. Neuro: AAO x 3, appropriately interactive, normal affect, speech fluent. Cranial nerves II through XII are intact grossly and symmetrically. No focal neurologic deficit. SCOTT: Small, smooth prostate, no discrete nodules. Note: This dictation was generated using [employer] voice recognition software. Please excuse any grammatical or spelling errors that may have occurred using the system. I have personally reviewed all pertinent images and reports from the diagnostic workup of this patient. Please let me know if you have any questions. Jihan Rodriguez M.D. Radiation Oncology 3:50 PM, 02/27/25 Review of Systems Constitutional: Negative. HENT: Positive for trouble swallowing. Eyes: Positive for eye problems. Cataract surgery Respiratory: Positive for cough and shortness of breath. Cardiovascular: Negative. Gastrointestinal: Positive for constipation. Endocrine: Negative. Genitourinary: Positive for difficulty urinating and pelvic pain. Musculoskeletal: Positive for back pain. Skin: Negative. Neurological: Negative. Hematological: Negative. Psychiatric/Behavioral: The patient is nervous/anxious. documented in this encounter [facility] 02-14-2025 Note I discussed risks, b enefits and alternatives of telemedicine consultation with the patient (and any accompanying persons) including the risks that the patient's personal health details and medical records will be discussed over interactive video/audio/telecommunication technology, may be recorded, and that there are inherent diagnostic limitations compared to [id number] evaluations. They elected to proceed with the telemedicine consultation. An audio-video telehealth appointment was offered to the patient. Due to technical capabilities, use of video was declined by the patient. I spent 19 minutes with the patient discussing their chronic/acute conditions and managing prescription medications Chief complaint: prostate cancer History of Present Illness Wolf Turcios is a 64 y.o. male who presents for follow up. Localized prostate cancer. cT1c PSA 8.8 GG2 disease. PI-RADS 5 lesion target. MRI with normal margins. Vol 29 cc. Normal bones and LN IPSS: 21/5 Weak stream, straining, frequency and nocturia x2. Taking flomax. No significant benefit. No erectile dysfunction. No medications. Surgical Hx: ex lap- PUD repair-gastric Medical Hx: COPD- intermittent oxygen. GERD, TIA Social Hx: active smoker. Review of Systems ROS negative for HEENT, respiratory, cardiovascular, gastrointestinal, endocrine, hematology, lymphatic, neurologic, psychiatric, skin, and musculo-skeletal systems except as otherwise documented in HPI. Medical / Surgical History Patient has a past medical history of Arthritis, Asthma, Cataract, Chest pain, Cocaine abuse in remission ([facility]), COPD (chronic obstructive pulmonary disease) ([facility]), Edema, Emphysema of lung ([facility]), Essential hypertension (01/10/2017), Hyperlipidemia, Neck pain, Peptic ulcer disease, PUD (peptic ulcer disease), Sepsis due to pneumonia ([facility]) (04/2020), Thoracic aortic aneurysm, TIA (transient ischemic attack), and Tobacco abuse. Patient has a past surgical history that includes Gastric Ulcer Perforation Repair; Eye surgery (Right); and Arthroplasty Hip Total (Right, 01/28/2021). Medications Current Outpatient Medications Medication Instructions albuterol 90 mcg/actuation inhaler INHALE 2 PUFFS THREE TIMES DAILY NEEDED amLODIPine (NORVASC) 5 mg, Daily benzonatate (TESSALON) 100 mg, 2 times daily cholecalciferol, vitamin D3, 5,000 unit Tab tablet 1 tablet, Daily ciprofloxacin HCl (CILOXAN) 0.3 % ophthalmic solution instill 1 drop into the affected eye FOUR TIMES DAILY for TEN days. cyclobenzaprine (FLEXERIL) 10 mg, Every 12 hours PRN diphenhydrAMINE (BENADRYL) 50 mg fexofenadine (CHOLO) 180 mg, Daily furosemide (LASIX) 20 mg, Daily guaiFENesin (MUCINEX) 600 mg, Oral, 2 times daily ipratropium (ATROVENT) 42 mcg (0.06 %) nasal spray 2 SPRAYS IN EACH NOSTRIL THREE TIMES DAILY NEEDED ipratropium-albuteroL (DUO-NEB) 0.5-2.5 mg/3 ml nebulizer 3 mL, Nebulization, Every 6 hours PRN levoFLOXacin (LEVAQUIN) 750 mg, Oral, Daily, Start day prior to prostate biopsy. lisinopriL (PRINIVIL,ZESTRIL) 20 mg, Daily lisinopriL (PRINIVIL,ZESTRIL) 10 mg, Daily loratadine (CLARITIN) 10 mg, Daily PRN montelukast (SINGULAIR) 10 mg, Daily omeprazole (PRILOSEC) 20 mg, Daily OXYGEN-AIR DELIVERY SYSTEMS MISC As needed potassium chloride SA (K-DUR,KLOR-CON) 20 MEQ tablet 20 mEq, Every morning tamsulosin (FLOMAX) 0.8 mg, Oral, Every morning before breakfast traMADol (ULTRAM) 50 mg, Every 6 hours PRN Trelegy Ellipta 100-62.5-25 mcg DsDv 1 puff, Daily Allergies Ibuprofen and Codeine Social / Family History Patient reports that he has been smoking cigarettes. He started smoking about 56 years ago. He has a 14 pack-year smoking history. He has never used smokeless tobacco. He reports that he does not currently use alcohol. He reports that he does not currently use drugs after having used the following drugs: Crack cocaine. Patient's family history includes Diabetes in his father and mother; Heart attack in his maternal grandmother; Throat cancer in his sister. The following portions of the patient's history were reviewed and updated as appropriate: past medical history, past surgical history, current medications, allergies, past social history, past family history, problem list. Physical exam No vitals performed. Patient sounds appropriate over the phone. Labs Lab Results Component Value Date WBC 8.80 10/31/2023 HGB 14.7 10/31/2023 HCT 46.7 10/31/2023 MCV 96.9 10/31/2023 PLT 254 10/31/2023 RBC 4.82 10/31/2023 Lab Results Component Value Date GLUCOSE 188 (H) 10/31/2023 CALCIUM 8.6 10/31/2023 NA 139 10/31/2023 K 4.4 10/31/2023 CL 99 10/31/2023 BUN 9 10/31/2023 CREATININE 0.65 (L) 10/31/2023 PSA 8.8 Pathology: Final Diagnosis Prostate, needle core biopsy: Prostatic adenocarcinoma, Maryse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 45% Maryse pattern (more content not included)... [facility] 02-14-2025 History of Present illness Narrative I discussed risks, benefits and alternatives of telemedicine consultation with the patient (and any accompanying persons) including the risks that the patient s personal health details and medical records will be discussed over interactive video/audio/telecommunication technology, may be recorded, and that there are inherent diagnostic limitations compared to [id number] evaluations. They elected to proceed with the telemedicine consultation. An audio-video telehealth appointment was offered to the patient. Due to technical capabilities, use of video was declined by the patient. I spent 19 minutes with the patient discussing their chronic/acute conditions and managing prescription medications Chief complaint: prostate cancer History of Present Illness Wolf Turcios is a 64 y.o. male who presents for follow up. Localized prostate cancer. cT1c PSA 8.8 GG2 disease. PI-RADS 5 lesion target. MRI with normal margins. Vol 29 cc. Normal bones and LN IPSS: 21/5 Weak stream, straining, frequency and nocturia x2. Taking flomax. No significant benefit. No erectile dysfunction. No medications. Surgical Hx: ex lap- PUD repair-gastric Medical Hx: COPD- intermittent oxygen. GERD, TIA Social Hx: active smoker. Review of Systems ROS negative for HEENT, respiratory, cardiovascular, gastrointestinal, endocrine, hematology, lymphatic, neurologic, psychiatric, skin, and musculo-skeletal systems except as otherwise documented in HPI. Medical / Surgical History Patient has a past medical history of Arthritis, Asthma, Cataract, Chest pain, Cocaine abuse in remission ([facility]), COPD (chronic obstructive pulmonary disease) ([facility]), Edema, Emphysema of lung ([facility]), Essential hypertension (01/10/2017), Hyperlipidemia, Neck pain, Peptic ulcer disease, PUD (peptic ulcer disease), Sepsis due to pneumonia ([facility]) (04/2020), Thoracic aortic aneurysm, TIA (transient ischemic attack), and Tobacco abuse. Patient has a past surgical history that includes Gastric Ulcer Perforation Repair; Eye surgery (Right); and Arthroplasty Hip Total (Right, 01/28/2021). Medications Current Outpatient Medications Medication Instructions albuterol 90 mcg/actuation inhaler INHALE 2 PUFFS THREE TIMES DAILY NEEDED amLODIPine (NORVASC) 5 mg, Daily benzonatate (TESSALON) 100 mg, 2 times daily cholecalciferol, vitamin D3, 5,000 unit Tab tablet 1 tablet, Daily ciprofloxacin HCl (CILOXAN) 0.3 % ophthalmic solution instill 1 drop into the affected eye FOUR TIMES DAILY for TEN days. cyclobenzaprine (FLEXERIL) 10 mg, Every 12 hours PRN diphenhydrAMINE (BENADRYL) 50 mg fexofenadine (CHOLO) 180 mg, Daily furosemide (LASIX) 20 mg, Daily guaiFENesin (MUCINEX) 600 mg, Oral, 2 times daily ipratropium (ATROVENT) 42 mcg (0.06 %) nasal spray 2 SPRAYS IN EACH NOSTRIL THREE TIMES DAILY NEEDED ipratropium-albuteroL (DUO-NEB) 0.5-2.5 mg/3 ml nebulizer 3 mL, Nebulization, Every 6 hours PRN levoFLOXacin (LEVAQUIN) 750 mg, Oral, Daily, Start day prior to prostate biopsy. lisinopriL (PRINIVIL,ZESTRIL) 20 mg, Daily lisinopriL (PRINIVIL,ZESTRIL) 10 mg, Daily loratadine (CLARITIN) 10 mg, Daily PRN montelukast (SINGULAIR) 10 mg, Daily omeprazole (PRILOSEC) 20 mg, Daily OXYGEN-AIR DELIVERY SYSTEMS MISC As needed potassium chloride SA (K-DUR,KLOR-CON) 20 MEQ tablet 20 mEq, Every morning tamsulosin (FLOMAX) 0.8 mg, Oral, Every morning before breakfast traMADol (ULTRAM) 50 mg, Every 6 hours PRN Trelegy Ellipta 100-62.5-25 mcg DsDv 1 puff, Daily Allergies Ibuprofen and Codeine Social / Family History Patient reports that he has been smoking cigarettes. He started smoking about 56 years ago. He has a 14 pack-year smoking history. He has never used smokeless tobacco. He reports that he does not currently use alcohol. He reports that he does not currently use drugs after having used the following drugs: Crack cocaine. Patient's family history includes Diabetes in his father and mother; Heart attack in his maternal grandmother; Throat cancer in his sister. The following portions of the patient's history were reviewed and updated as appropriate: past medical history, past surgical history, current medications, allergies, past social history, past family history, problem list. Physical exam No vitals performed. Patient sounds appropriate over the phone. Labs Lab Results Component Value Date WBC 8.80 10/31/2023 HGB 14.7 10/31/2023 HCT 46.7 10/31/2023 MCV 96.9 10/31/2023 PLT 254 10/31/2023 RBC 4.82 10/31/2023 Lab Results Component Value Date GLUCOSE 188 (H) 10/31/2023 CALCIUM 8.6 10/31/2023 NA 139 10/31/2023 K 4.4 10/31/2023 CL 99 10/31/2023 BUN 9 10/31/2023 CREATININE 0.65 (L) 10/31/2023 PSA 8.8 Pathology: Final Diagnosis Prostate, needle core biopsy: Prostatic adenocarcinoma, 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 45% Maryse pattern 4. Cribriform growth pattern identified. Questionnaires: IPSS Questionnaire (AUA-7): Over the past month 1) How often have you had a sensation of not emptying your bladder completely after you finish urinating? 5 - Almost always 2) How often have you had to urinate again less than two hours after you finished urinating? 5 - Almost always 3) How often have you found you stopped and started again several times when you urinated? 3 - About half the time 4) How difficult have you found it to postpone urination? 0 - Not at all 5) How often have you had a weak urinary stream? 2 - Less than half the time 6) How often have you had to push or strain to begin urination? 3 - About half the time 7) How many times did you most typically get up to urinate from the time you went to bed until the time you got up in the morning? 3 - 3 times Total score: 21/5 0-7 mildly symptomatic 8-19 moderately symptomatic 20-35 severely symptomatic Imaging: MRI prostate 01/05/2025 FINDINGS: Prostate: Measures 4.6 x 3.7 x 3.3 cm for a gland volume of 29 mL. Extending from the apex mid gland at the junction of the left peripheral and transition zones, there is marked restricted diffusion and abnormal enhancement associated with crescentic moderate T2 hypointense signal measuring 2.3 x 1.6 x 0.8 cm. Mild transition zone hyperplasia. Prostate capsule is intact. Seminal vesicles: Unremarkable. Neurovascular bundle: Unremarkable. Lymphadenopathy: No lymphadenopathy. Bladder: Not well distended. Bowel: The visualized bowel is unremarkable. Bones/Soft tissues: No suspicious osseous lesion. Degenerative changes of the lower lumbar spine. Susceptibility artifact from right hip arthroplasty. Moderate bilateral scrotal hydroceles. IMPRESSION: A PI-RADS 5 nodule at the junction of the left peripheral and transition zones extending from the apex to the mid gland measures up to 2.3 cm. Diagnosis Prostate cancer Stage: Clinical T1c NCCN: Favorable intermediate Assessment Wolf Turcios is a 64 y.o. male with newly diagnosed localized prostate cancer. Orlando Grade Group: 2 PSA: 8.8 ng/ml Pathology cores: Left apex to mid Staging imaging: MRI negative I had an extensive discussion with the patient regarding the prostate cancer diagnosis, treatment options, and making a decision regarding treatment. I have offered the patient radiation therapy, surgery, focal therapy, watchful waiting and active surveillance. We have also discussed the role of secondary therapy, cryoablation, and hormonal ablation in treating prostate cancer. We reviewed the [facility] Preoperative Nomogram. We had an extensive discussion about robotic-assisted laparoscopic prostatectomy, including treatment success, side effects, and expectations. I discussed recovery time, hospital course and catheter duration. I discussed the side effects related to sexual and urinary function. We discussed the unique complications that exist with patients with prior abdominal surgery and the potential for intra-abdominal adhesions making surgery prohibitive. We discussed the long-term survival and disease-free outcomes of treatment as well as the side effects associated with each of the treatments. 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 He also understands that he may require secondary therapy if initial treatment is unsuccessful. The patient verbalized his understanding of the survival and quality of life outcomes associated with each of the treatments. I have offered the patient referrals to radiation oncology and medical oncology for further discussion of radiation and medical treatments of prostate cancer. Plan: Referral radiation oncology Patient to consider surgery -Will need medical and pulmonary clearance Follow-up in 3 weeks to finalize treatment decision Elijah Sanchez MD documented in this encounter [facility] 02-01-2025 History of Present illness Narrative PROSTATE BIOPSY: Take antibiotic day before: yes Which antibiotic: levaquin Do enema: yes Date of Procedure: 02/01/25 Preoperative Diagnosis: Elevated PSA Postoperative Diagnosis: Elevated PSA Procedure: Transrectal ultrasound of prostate gland Transrectal ultrasound-guided prostate needle biopsy MRI-US fusion guided targeted prostate needle biopsy Surgeon: Elijah Sanchez MD Assistants: Ivis Jon RN Anesthesia: Local anesthesia 1% buffered lidocaine Indications: Wolf Turcios is a 64 y.o. male with elevated PSA. PSA 11/25/24- 8.8 PSA 10/01/24- 6.72 MRI prostate 01/02/25 - cc -Lesion 1: left PZ/TZ junction mid apex, 2.3 cm, PI-RADS 5 Informed consent was obtained and the risks, benefits, and details of the procedure were explained to the patient who elected to proceed. Details of Procedure: Following confirmation that patient had been given pre-op antibiotics, he was positioned in left lateral decubitus position with knees drawn up to chest. A digital rectal examination was performed. The rectal probe ultrasound was inserted into the rectum and Lidocaine 1% was injected at the lateral prostate/seminal vesicle junction to anesthetize the adjacent nerves. The Uronav system was then registered. The ultrasound imagine and MRI images were fused. Elastic correction was performed. The Target areas were displayed on the imaging screen. There was 1 region of interest: -Lesion 1: left PZ/TZ junction mid apex, 2.3 cm, PI-RADS 5 Six core biopsies with the biopsy needle gun were taken from each area of interest. Upon completion of the procedure, the US probe was removed. Patient tolerated procedure well. Findings: SCOTT demonstrates cT1c mobile gland. US with normal margins. SV normal. Bladder neck normal. No median lobe. Vol 29 cm3 Specimens: ERICH: 6 cores. Complications: None Disposition: Discharged home in good condition. 2 week follow up. documented in this encounter [facility] 02-01-2025 Note Date of Procedure: 0 02/01/25 Preoperative Diagnosis: Elevated PSA Postoperative Diagnosis: Elevated PSA Procedure: Transrectal ultrasound of prostate gland Transrectal ultrasound-guided prostate needle biopsy MRI-US fusion guided targeted prostate needle biopsy Surgeon: Elijah Sanchez MD Assistants: Ivis Jon, RAY Anesthesia: Local anesthesia 1% buffered lidocaine Indications: Wolf Turcios is a 64 y.o. male with elevated PSA. PSA 11/25/24- 8.8 PSA 10/01/24- 6.72 MRI prostate 01/02/25 - cc -Lesion 1: left PZ/TZ junction mid apex, 2.3 cm, PI-RADS 5 Informed consent was obtained and the risks, benefits, and details of the procedure were explained to the patient who elected to proceed. Details of Procedure: Following confirmation that patient had been given pre-op antibiotics, he was positioned in left lateral decubitus position with knees drawn up to chest. A digital rectal examination was performed. The rectal probe ultrasound was inserted into the rectum and Lidocaine 1% was injected at the lateral prostate/seminal vesicle junction to anesthetize the adjacent nerves. The Uronav system was then registered. The ultrasound imagine and MRI images were fused. Elastic correction was performed. The Target areas were displayed on the imaging screen. There was 1 region of interest: -Lesion 1: left PZ/TZ junction mid apex, 2.3 cm, PI-RADS 5 Six core biopsies with the biopsy needle gun were taken from each area of interest. Upon completion of the procedure, the US probe was removed. Patient tolerated procedure well. Findings: SCOTT demonstrates cT1c mobile gland. US with normal margins. SV normal. Bladder neck normal. No median lobe. Vol 29 cm3 Specimens: ERICH: 6 cores. Complications: None Disposition: Discharged home in good condition. 2 week follow up. AUTHENTICATED BY ELIJAH SANCHEZ, ON 02/01/2025 11:49:47 [facility] 11-25-2024 Note I received a scan of PSA obtained at outside lab on 11/23/2024 showing total PSA 8.8 with percent free PSA of 11.6. I called the patient and spoke with him on the phone regarding these results. I explained that his PSA has increased from last value of 6.72 on 10/02/2023. We discussed potential etiologies for elevated PSA including enlarged prostate versus prostate cancer. We discussed prostate biopsy versus MRI and the risks and benefits of each approach. He elected to start with MRI of the prostate with possible biopsy depending on the results. I recommend he obtain this MRI in the next 2 weeks. I provided the phone number for central scheduling for the patient. I answered all of his questions and he expressed understanding and agreement with the above plan. Digna Wooten MD, MPH [facility] - Urology [address] [place] [address], [address] [place], [place] AUTHENTICATED BY JIHAN WOOTEN, ON 11/25/2024 15:41:20 [facility] 11-25-2024 History of Present illness Narrative I received a scan of PSA obtained at outside lab on 11/23/2024 showing total PSA 8.8 with percent free PSA of 11.6. I called the patient and spoke with him on the phone regarding these results. I explained that his PSA has increased from last value of 6.72 on 10/02/2023. We discussed potential etiologies for elevated PSA including enlarged prostate versus prostate cancer. We discussed prostate biopsy versus MRI and the risks and benefits of each approach. He elected to start with MRI of the prostate with possible biopsy depending on the results. I recommend he obtain this MRI in the next 2 weeks. I provided the phone number for central scheduling for the patient. I answered all of his questions and he expressed understanding and agreement with the above plan. Digna Wooten MD, MPH [facility] - Urology [address] [place] [address], [address] [place], [place] documented in this encounter [facility] 11-11-2024 Note Reason for visit: I am here for LUTS and penile mass HPI Wolf Turcios is a 64 y.o. male referred by Brendon Escoto PA-C for evaluation of LUTS and penile mass. He has a history of bilateral epididymal cyst removal and bilateral inguinal hernia repair in 2020. Since that time he feels that he has developed lumps on his penis. These are intermittently uncomfortable. He denies any penile curvature. He has good normal erections. These of not been changing as of late. He also notes bothersome LUTS with weak stream and straining to void with the need to double void. He also has frequency and nocturia x 2. Denies gross hematuria, UTIs. He has been on Flomax with no significant improvement in his LUTS. PSA 6.72 on 10/02/2023. He is due to recheck this per his last visit with Brendon Escoto PA-C He denies family history of prostate cancer. Patient Active Problem List Diagnosis Date Noted Peyronie disease 11/11/2024 BPH with obstruction/lower urinary tract symptoms 11/11/2024 Elevated PSA 11/11/2024 COPD with acute exacerbation ([facility]) 10/25/2023 Acute on chronic respiratory failure ([facility]) 08/19/2021 COPD exacerbation ([facility]) 05/24/2021 Status post right hip replacement 01/28/2021 Illiterate 01/22/2021 Opioid dependence ([facility]) 08/09/2020 Hydrocele 06/14/2020 Thoracic aortic aneurysm, without rupture 01/01/2018 COPD (chronic obstructive pulmonary disease) ([facility]) 12/29/2017 Bilateral hip pain 12/29/2017 Tobacco use 12/29/2017 Essential hypertension 01/10/2017 Past Medical History: Diagnosis Date Arthritis Asthma Cataract Bilat- s/p Right eye laser Chest pain +ED 09/21/20- Troponin and Chest CT-Neg for PE showed pneuomia and emphysema Cocaine abuse in remission ([facility]) None since 2015- now on suboxone COPD (chronic obstructive pulmonary disease) ([facility]) Multiple ED visits- last 08/2020 Edema BLE + ED visit 07/25/20 Emphysema of lung ([facility]) Severe Essential hypertension 01/10/2017 Hyperlipidemia Neck pain Peptic ulcer disease PUD (peptic ulcer disease) Sepsis due to pneumonia ([facility]) 04/2020 Multiple ED visits- last 08/2020. Saw Pulm Dr Hollis while IP 04/20/20 Thoracic aortic aneurysm States d/t drug overdose TIA (transient ischemic attack) Tobacco abuse Past Surgical History: Procedure Laterality Date ARTHROPLASTY HIP TOTAL Right 01/28/2021 Procedure: RIGHT TOTAL HIP ARTHROPLASTY; Surgeon: Teresa Terry MD; Location: [facility] OR; Service: Orthopedic EYE SURGERY Right Laser for cataract GASTRIC ULCER PERFORATION REPAIR Current Medications[1] Allergies[2] Social History [3] Family History Problem Relation Age of Onset Diabetes Mother Diabetes Father Throat cancer Sister Heart attack Maternal Grandmother Pulmonary embolism Neg Hx Deep vein thrombosis Neg Hx Clotting disorder Neg Hx Heart disease Neg Hx Anesthesia problems Neg Hx Surgical complications Neg Hx Review of Systems PACU Vitals 11/11/24 1032 BP: (!) 143/85 Pulse: 82 Exam and procedure chaperoned by Ruth Chávez RN Constitutional: well appearing. No acute distress Head: Atraumatic, normocephalic Eyes: extra ocular movements intact. Ears, nose, mouth, throat: moist mucous membranes, normal external condition. Respiratory: normal chest rise. No audible wheezes. Genitourinary: Penis is uncircumcised with an orthotopic meatus. No evidence of urethral discharge. Multiple Peyronie's plaques dorsal penile shaft as well as proximal ventral penile shaft. No overlying skin changes. The scrotum is without masses. Both testicles are descended and without appreciable mass or tenderness. There are no appreciable urethral or perineal masses. No evidence of hydrocele or hernia. Musculoskeletal: Normal range of motion. No evidence of clubbing or cyanosis. Neurologic: Alert and oriented x 3. Normal gait. Skin: No rashes or lesions. Psychiatric: Normal mood and affect Procedures: Male flexible cystoscopy Patient: Wolf Turcios Date of : 1960 Age: 64 y.o. Sex: male DATE OF PROCEDURE: 11/11/24 PREOPERATIVE DIAGNOSIS: LUTS POSTOPERATIVE DIAGNOSIS: LUTS PROCEDURE: Flexible cystoscopy. ATTENDING: Digna Wooten MD ANESTHESIA: 10 cc of viscous lidocaine. ESTIMATED BLOOD LOSS: None. COMPLICATIONS: None SPECIMENS: None INDICATIONS: Lots FINDINGS: 1. Patent anterior urethra 2. Coapting external sphincter 3. Obstructing lateral lobes of the prostate, high bladder neck, no intravesical median lobe, intravesical protrusion of the lateral lobes. 4. Mild diffuse bladder trabeculations. No stones, no tumors, no patches of erythema. Bilateral ureteral orifices in orthotopic locations PROCEDURE: The patient was identified with name and medical record number. Informed consent was obtained. A time out was taken. All questions were answered. He was placed on the procedure room table and 10 cc of viscous lidoca (more content not included)... [facility] 11-11-2024 History of Present illness Narrative Reason for visit: I am here for LUTS and penile mass HPI Wolf Turcios is a 64 y.o. male referred by Brendon Escoto PA-C for evaluation of LUTS and penile mass. He has a history of bilateral epididymal cyst removal and bilateral inguinal hernia repair in 2020. Since that time he feels that he has developed lumps on his penis. These are intermittently uncomfortable. He denies any penile curvature. He has good normal erections. These of not been changing as of late. He also notes bothersome LUTS with weak stream and straining to void with the need to double void. He also has frequency and nocturia x 2. Denies gross hematuria, UTIs. He has been on Flomax with no significant improvement in his LUTS. PSA 6.72 on 10/02/2023. He is due to recheck this per his last visit with Brendon Escoto PA-C He denies family history of prostate cancer. Patient Active Problem List Diagnosis Date Noted Peyronie disease 11/11/2024 BPH with obstruction/lower urinary tract symptoms 11/11/2024 Elevated PSA 11/11/2024 COPD with acute exacerbation ([facility]) 10/25/2023 Acute on chronic respiratory failure ([facility]) 08/19/2021 COPD exacerbation ([facility]) 05/24/2021 Status post right hip replacement 01/28/2021 Illiterate 01/22/2021 Opioid dependence ([facility]) 08/09/2020 Hydrocele 06/14/2020 Thoracic aortic aneurysm, without rupture 01/01/2018 COPD (chronic obstructive pulmonary disease) ([facility]) 12/29/2017 Bilateral hip pain 12/29/2017 Tobacco use 12/29/2017 Essential hypertension 01/10/2017 Past Medical History: Diagnosis Date Arthritis Asthma Cataract Bilat- s/p Right eye laser Chest pain +ED 09/21/20- Troponin and Chest CT-Neg for PE showed pneuomia and emphysema Cocaine abuse in remission ([facility]) None since 2015- now on suboxone COPD (chronic obstructive pulmonary disease) ([facility]) Multiple ED visits- last 08/2020 Edema BLE + ED visit 07/25/20 Emphysema of lung ([facility]) Severe Essential hypertension 01/10/2017 Hyperlipidemia Neck pain Peptic ulcer disease PUD (peptic ulcer disease) Sepsis due to pneumonia ([facility]) 04/2020 Multiple ED visits- last 08/2020. Saw Pulm Dr Hollis while IP 04/20/20 Thoracic aortic aneurysm States d/t drug overdose TIA (transient ischemic attack) Tobacco abuse Past Surgical History: Procedure Laterality Date ARTHROPLASTY HIP TOTAL Right 01/28/2021 Procedure: RIGHT TOTAL HIP ARTHROPLASTY; Surgeon: Teresa Terry MD; Location: [facility] OR; Service: Orthopedic EYE SURGERY Right Laser for cataract GASTRIC ULCER PERFORATION REPAIR Current Medications[1] Allergies[2] Social History [3] Family History Problem Relation Age of Onset Diabetes Mother Diabetes Father Throat cancer Sister Heart attack Maternal Grandmother Pulmonary embolism Neg Hx Deep vein thrombosis Neg Hx Clotting disorder Neg Hx Heart disease Neg Hx Anesthesia problems Neg Hx Surgical complications Neg Hx Review of Systems PACU Vitals 11/11/24 1032 BP: (!) 143/85 Pulse: 82 Exam and procedure chaperoned by Ruth Chávez RN Constitutional: well appearing. No acute distress Head: Atraumatic, normocephalic Eyes: extra ocular movements intact. Ears, nose, mouth, throat: moist mucous membranes, normal external condition. Respiratory: normal chest rise. No audible wheezes. Genitourinary: Penis is uncircumcised with an orthotopic meatus. No evidence of urethral discharge. Multiple Peyronie's plaques dorsal penile shaft as well as proximal ventral penile shaft. No overlying skin changes. The scrotum is without masses. Both testicles are descended and without appreciable mass or tenderness. There are no appreciable urethral or perineal masses. No evidence of hydrocele or hernia. Musculoskeletal: Normal range of motion. No evidence of clubbing or cyanosis. Neurologic: Alert and oriented x 3. Normal gait. Skin: No rashes or lesions. Psychiatric: Normal mood and affect Procedures: Male flexible cystoscopy Patient: Wolf Turcios Date of : 1960 Age: 64 y.o. Sex: male DATE OF PROCEDURE: 11/11/24 PREOPERATIVE DIAGNOSIS: LUTS POSTOPERATIVE DIAGNOSIS: LUTS PROCEDURE: Flexible cystoscopy. ATTENDING: Digna Wooten MD ANESTHESIA: 10 cc of viscous lidocaine. ESTIMATED BLOOD LOSS: None. COMPLICATIONS: None SPECIMENS: None INDICATIONS: Lots FINDINGS: 1. Patent anterior urethra 2. Coapting external sphincter 3. Obstructing lateral lobes of the prostate, high bladder neck, no intravesical median lobe, intravesical protrusion of the lateral lobes. 4. Mild diffuse bladder trabeculations. No stones, no tumors, no patches of erythema. Bilateral ureteral orifices in orthotopic locations PROCEDURE: The patient was identified with name and medical record number. Informed consent was obtained. A time out was taken. All questions were answered. He was placed on the procedure room table and 10 cc of viscous lidocaine was instilled per urethra and allowed to sit for 10 minutes. He was prepped and draped in a sterile fashion. A 16-[place] flexible cystoscope was inserted per urethra and carried through under direct vision. 360-degree panendoscopy was performed demonstrating all of the above-mentioned findings. The cystoscope was removed under direct vision, examining the urethra on withdrawal. Patient tolerated the procedure well. Assessment: ICD-10-CM ICD-9-CM 1. Peyronie disease N48.6 607.85 2. BPH with obstruction/lower urinary tract symptoms N40.1 600.01 N13.8 599.69 3. Elevated PSA R97.20 790.93 Plan: Peyronie's disease (chronic stable condition) We discussed that the bumps on his penis are consistent with Peyronie's plaques. Fortunately he does not have any penile curvature and he has good erection hardness. I recommended NSAIDs as needed for discomfort with erections. Given his lack of curvature, no need for surgical intervention. BPH with LUTS (Chronic worsening condition, prescription medication management) We discussed his bothersome lower urinary tract symptoms as well as the cystoscopy findings showing a enlarged obstructing lateral lobes of the prostate with a high bladder neck. We discussed options for management including continuing Flomax versus considering surgical intervention. Elected to continue Flomax for now and is interested in potential surgical intervention pending the results of his repeat PSA. If his PSA remains elevated, an MRI of the prostate would be helpful to also evaluate for prostate volume. Elevated PSA I explained to the patient his elevated PSA and importance of repeat PSA. If this remains elevated, consider prostate MRI. I recommended he obtain repeat PSA 1 week after his cystoscopy today to minimize confounders. He will follow-up with Brendon Escoto PA-C for this. Digna Wooten MD, MPH [facility] - Reconstructive Urology [address], [address] [place], [place] [1] Current Outpatient Medications Medication Sig Dispense Refill albuterol 90 mcg/actuation inhaler INHALE 2 PUFFS THREE TIMES DAILY NEEDED benzonatate (TESSALON) 100 MG capsule Take 1 (one) capsule (100 mg total) by mouth 2 (two) times a day . cholecalciferol, vitamin D3, 5,000 unit Tab tablet Take 1 (one) tablet (5,000 Units total) by mouth daily . ciprofloxacin HCl (CILOXAN) 0.3 % ophthalmic solution instill 1 drop into the affected eye FOUR TIMES DAILY for TEN days. cyclobenzaprine (FLEXERIL) 10 MG tablet Take 1 (one) tablet (10 mg total) by mouth every 12 (twelve) hours as needed for muscle spasms . fexofenadine (CHOLO) 180 MG tablet Take 1 (one) tablet (180 mg total) by mouth daily . furosemide (LASIX) 20 MG tablet Take 1 (one) tablet (20 mg total) by mouth daily . guaiFENesin (MUCINEX) 600 mg 12 hr tablet Take 1 (one) tablet (600 mg total) by mouth 2 (two) times a day . 60 tablet 0 ipratropium (ATROVENT) 42 mcg (0.06 %) nasal spray 2 SPRAYS IN EACH NOSTRIL THREE TIMES DAILY NEEDED ipratropium-albuteroL (DUO-NEB) 0.5-2.5 mg/3 ml nebulizer Take 3 mL by nebulization every 6 (six) hours as needed for wheezing or shortness of breath . 120 mL 0 loratadine (CLARITIN) 10 mg tablet Take 1 (one) tablet (10 mg total) by mouth daily as needed . montelukast (SINGULAIR) 10 mg tablet Take 1 (one) tablet (10 mg total) by mouth daily . omeprazole (PRILOSEC) 20 MG capsule Take 1 (one) capsule (20 mg total) by mouth daily . OXYGEN-AIR DELIVERY SYSTEMS MISC by continuous inhalation route as needed (Not using oxygen tanks, unknown #L) . potassium chloride SA (K-DUR,KLOR-CON) 20 MEQ tablet Take 1 (one) tablet (20 mEq total) by mouth every morning . tamsulosin (FLOMAX) 0.4 mg capsule Take 2 (two) capsules (0.8 mg total) by mouth every morning before breakfast . 180 capsule 3 traMADol (ULTRAM) 50 mg tablet Take 1 (one) tablet (50 mg total) by mouth every 6 (six) hours as needed . Trelegy Ellipta 100-62.5-25 mcg DsDv 1 puff by Oral Inhalation route daily . amLODIPine (NORVASC) 5 MG tablet Take 1 (one) tablet (5 mg total) by mouth daily . (Patient not taking: Reported on 11/11/2024 .) diphenhydrAMINE (BENADRYL) 25 mg capsule 2 (two) capsules (50 mg total) . (Patient not taking: Reported on 11/11/2024 .) lisinopriL (PRINIVIL,ZESTRIL) 10 MG tablet Take 1 (one) tablet (10 mg total) by mouth daily Total of 30mg . (Patient not taking: Reported on 11/11/2024 .) lisinopriL (PRINIVIL,ZESTRIL) 20 MG tablet Take 1 (one) tablet (20 mg total) by mouth daily Total of 30mg . (Patient not taking: Reported on 11/11/2024 .) No current facility-administered medications for this visit. [2] Allergies Allergen Reactions Ibuprofen Gives him UTI Codeine Itching Including all derivatives - is well tolerated when taking Benadryl prophylaxis [3] Social History Socioeconomic History Marital status: Single Tobacco Use Smoking status: Every Day Current packs/day: 0.25 Average packs/day: 0.3 packs/day for 55.8 years (14.0 ttl pk-yrs) Types: Cigarettes Start date: 01/19/1969 Smokeless tobacco: Never Tobacco comments: Trying to cut back, 6 cigs per day Vaping Use Vaping status: Never Used Substance and Sexual Activity Alcohol use: Not Currently Comment: 1 beer per month Drug use: Not Currently Types: Crack cocaine Comment: H/o Sober since 2017- now on suboxone Social Drivers of Health Financial Resource Strain: Medium Risk (10/30/2023) Received from [facility] Overall Financial Resource Strain (CARDIA) Difficulty of Paying Living Expenses: Somewhat hard Food Insecurity: Food Insecurity Present (10/31/2023) Hunger Vital Sign Worried About Running Out of Food in the Last Year: Sometimes true Ran Out of Food in the Last Year: Sometimes true Transportation Needs: No Transportation Needs (10/31/2023) PRAPARE - Transportation Lack of Transportation (Medical): No Lack of Transportation (Non-Medical): No Housing Stability: High Risk (10/31/2023) Housing Stability Vital Sign Unable to Pay for Housing in the Last Year: No Number of Places Lived in the Last Year: 3 Unstable Housing in the Last Year: No ALL PROCEDURES: Cystoscopy Antibiotic given today: None Which antibiotic: NA Take any blood thinners: None Which blood thinner: NA When was last dose:NA UTI symptoms: Frequency/Urgency Cysto fluid type: 0.9% Sodium Chlorine mL size: 500 Lot number: [id number] Exp date: 06/06/2027 [facility]: [id number] Review of Systems HENT: Positive for congestion. Eyes: Positive for blurred vision and redness. Cardiovascular: Positive for dyspnea on exertion. Respiratory: Positive for cough, shortness of breath and sputum production. Musculoskeletal: Positive for arthritis, back pain, joint pain and stiffness. Gastrointestinal: Positive for bloating and constipation. Genitourinary: Positive for frequency, nocturia and urgency. Neurological: Positive for headaches. Psychiatric/Behavioral: Positive for depression. The patient is nervous/anxious. Allergic/Immunologic: Positive for environmental allergies. All other systems reviewed and are negative. documented in this encounter [facility] 10-28-2024 Note Patient Name: Randall Turcios MR #: [id number] : 1960 Physicians: Ivonne Henry MD (Referring) Chief Complaint/Reason for Visit: Penile lesion, bladder outlet obstruction History of Present Illness: Wolf Turcios is a 64 y.o. male presents for evaluation of the above. The patient presents today to discuss a lump on the side of his penis. He was previously seen by Dr. Perla for bilateral epididymal cyst removal and bilateral inguinal hernia repair in June 2020. He states he required a catheter following the procedure and has had difficulty voiding ever since. He presents today with a lump on his right dorsal penis along with complaints of painful erections. He denies any curvature to his penis. He notes weak stream and states his stream will stop and go. He denies any difficulty starting his stream. He also notes increased frequency, nocturia 3 times per night and the feeling of incomplete emptying. He denies any dysuria, gross hematuria or flank pain. He denies family history of prostate cancer. Urinary: IPSS Questionnaire (AUA-7): Over the past month... 1) How often have you had a sensation of not emptying your bladder completely after you finish urinating? 5 - Almost always 2) How often have you had to urinate again less than two hours after you finished urinating? 5 - Almost always 3) How often have you found you stopped and started again several times when you urinated? 3 - About half the time 4) How difficult have you found it to postpone urination? 0 - Not at all 5) How often have you had a weak urinary stream? 2 - Less than half the time 6) How often have you had to push or strain to begin urination? 3 - About half the time 7) How many times did you most typically get up to urinate from the time you went to bed until the time you got up in the morning? 3 - 3 times Total score: 21 0-7 mildly symptomatic 8-19 moderately symptomatic 20-35 severely symptomatic History: Past Medical History: Diagnosis Date Arthritis Asthma Cataract Bilat- s/p Right eye laser Chest pain +ED 09/21/20- Troponin and Chest CT-Neg for PE showed pneuomia and emphysema Cocaine abuse in remission ([facility]) None since 2015- now on suboxone COPD (chronic obstructive pulmonary disease) ([facility]) Multiple ED visits- last 08/2020 Edema BLE + ED visit 07/25/20 Emphysema of lung ([facility]) Severe Essential hypertension 01/10/2017 Hyperlipidemia Neck pain Peptic ulcer disease PUD (peptic ulcer disease) Sepsis due to pneumonia ([facility]) 04/2020 Multiple ED visits- last 08/2020. Saw Pulm Dr Hollis while IP 04/20/20 Thoracic aortic aneurysm States d/t drug overdose TIA (transient ischemic attack) Tobacco abuse Past Surgical History: Procedure Laterality Date ARTHROPLASTY HIP TOTAL Right 01/28/2021 Procedure: RIGHT TOTAL HIP ARTHROPLASTY; Surgeon: Teresa Terry MD; Location: [facility] OR; Service: Orthopedic EYE SURGERY Right Laser for cataract GASTRIC ULCER PERFORATION REPAIR Family History Problem Relation Age of Onset Diabetes Mother Diabetes Father Throat cancer Sister Heart attack Maternal Grandmother Pulmonary embolism Neg Hx Deep vein thrombosis Neg Hx Clotting disorder Neg Hx Heart disease Neg Hx Anesthesia problems Neg Hx Surgical complications Neg Hx Social History [1] Allergy Information: I have reviewed the patient's allergies. Ibuprofen and Codeine Home Medications: Outpatient Medications as of 10/28/2024 Medication Sig amLODIPine (NORVASC) 5 MG tablet Take 1 (one) tablet (5 mg total) by mouth daily . cholecalciferol, vitamin D3, 5,000 unit Tab tablet Take 1 (one) tablet (5,000 Units total) by mouth daily . cyclobenzaprine (FLEXERIL) 10 MG tablet Take 1 (one) tablet (10 mg total) by mouth every 12 (twelve) hours as needed for muscle spasms . diphenhydrAMINE (BENADRYL) 25 mg capsule 2 (two) capsules (50 mg total) . furosemide (LASIX) 20 MG tablet Take 1 (one) tablet (20 mg total) by mouth daily . guaiFENesin (MUCINEX) 600 mg 12 hr tablet Take 1 (one) tablet (600 mg total) by mouth 2 (two) times a day . ipratropium-albuteroL (DUO-NEB) 0.5-2.5 mg/3 ml nebulizer Take 3 mL by nebulization every 6 (six) hours as needed for wheezing or shortness of breath . lisinopriL (PRINIVIL,ZESTRIL) 10 MG tablet Take 1 (one) tablet (10 mg total) by mouth daily Total of 30mg . loratadine (CLARITIN) 10 mg tablet Take 1 (one) tablet (10 mg total) by mouth daily as needed . omeprazole (PRILOSEC) 20 MG capsule Take 1 (one) capsule (20 mg total) by mouth daily . OXYGEN-AIR DELIVERY SYSTEMS MISC by continuous inhalation route as needed (Not using oxygen tanks, unknown #L) . potassium chloride SA (K-DUR,KLOR-CON) 20 MEQ tablet Take 1 (one) tablet (20 mEq total) by mouth every morning . traMADol (ULTRAM) 50 mg tablet Take 1 (one) tablet (50 mg total) by mouth every 6 (six) hours as needed . lisinopriL (PRINI (more content not included)... [facility] 10-28-2024 History of Present illness Narrative Images from the original note were not included. Patient Name: Wolf Turcios MR #: [id number] : 1960 Physicians: Ivonne Henry MD (Referring) Chief Complaint/Reason for Visit: Penile lesion, bladder outlet obstruction History of Present Illness: Wolf Turcios is a 64 y.o. male presents for evaluation of the above. The patient presents today to discuss a lump on the side of his penis. He was previously seen by Dr. Perla for bilateral epididymal cyst removal and bilateral inguinal hernia repair in June 2020. He states he required a catheter following the procedure and has had difficulty voiding ever since. He presents today with a lump on his right dorsal penis along with complaints of painful erections. He denies any curvature to his penis. He notes weak stream and states his stream will stop and go. He denies any difficulty starting his stream. He also notes increased frequency, nocturia 3 times per night and the feeling of incomplete emptying. He denies any dysuria, gross hematuria or flank pain. He denies family history of prostate cancer. Urinary: IPSS Questionnaire (AUA-7): Over the past month 1) How often have you had a sensation of not emptying your bladder completely after you finish urinating? 5 - Almost always 2) How often have you had to urinate again less than two hours after you finished urinating? 5 - Almost always 3) How often have you found you stopped and started again several times when you urinated? 3 - About half the time 4) How difficult have you found it to postpone urination? 0 - Not at all 5) How often have you had a weak urinary stream? 2 - Less than half the time 6) How often have you had to push or strain to begin urination? 3 - About half the time 7) How many times did you most typically get up to urinate from the time you went to bed until the time you got up in the morning? 3 - 3 times Total score: 21 0-7 mildly symptomatic 8-19 moderately symptomatic 20-35 severely symptomatic History: Past Medical History: Diagnosis Date Arthritis Asthma Cataract Bilat- s/p Right eye laser Chest pain +ED 09/21/20- Troponin and Chest CT-Neg for PE showed pneuomia and emphysema Cocaine abuse in remission ([facility]) None since 2015- now on suboxone COPD (chronic obstructive pulmonary disease) ([facility]) Multiple ED visits- last 08/2020 Edema BLE + ED visit 07/25/20 Emphysema of lung ([facility]) Severe Essential hypertension 01/10/2017 Hyperlipidemia Neck pain Peptic ulcer disease PUD (peptic ulcer disease) Sepsis due to pneumonia ([facility]) 04/2020 Multiple ED visits- last 08/2020. Saw Pulm Dr Hollis while IP 04/20/20 Thoracic aortic aneurysm States d/t drug overdose TIA (transient ischemic attack) Tobacco abuse Past Surgical History: Procedure Laterality Date ARTHROPLASTY HIP TOTAL Right 01/28/2021 Procedure: RIGHT TOTAL HIP ARTHROPLASTY; Surgeon: Teresa Terry MD; Location: [facility] OR; Service: Orthopedic EYE SURGERY Right Laser for cataract GASTRIC ULCER PERFORATION REPAIR Family History Problem Relation Age of Onset Diabetes Mother Diabetes Father Throat cancer Sister Heart attack Maternal Grandmother Pulmonary embolism Neg Hx Deep vein thrombosis Neg Hx Clotting disorder Neg Hx Heart disease Neg Hx Anesthesia problems Neg Hx Surgical complications Neg Hx Social History [1] Allergy Information: I have reviewed the patient's allergies. Ibuprofen and Codeine Home Medications: Outpatient Medications as of 10/28/2024 Medication Sig amLODIPine (NORVASC) 5 MG tablet Take 1 (one) tablet (5 mg total) by mouth daily . cholecalciferol, vitamin D3, 5,000 unit Tab tablet Take 1 (one) tablet (5,000 Units total) by mouth daily . cyclobenzaprine (FLEXERIL) 10 MG tablet Take 1 (one) tablet (10 mg total) by mouth every 12 (twelve) hours as needed for muscle spasms . diphenhydrAMINE (BENADRYL) 25 mg capsule 2 (two) capsules (50 mg total) . furosemide (LASIX) 20 MG tablet Take 1 (one) tablet (20 mg total) by mouth daily . guaiFENesin (MUCINEX) 600 mg 12 hr tablet Take 1 (one) tablet (600 mg total) by mouth 2 (two) times a day . ipratropium-albuteroL (DUO-NEB) 0.5-2.5 mg/3 ml nebulizer Take 3 mL by nebulization every 6 (six) hours as needed for wheezing or shortness of breath . lisinopriL (PRINIVIL,ZESTRIL) 10 MG tablet Take 1 (one) tablet (10 mg total) by mouth daily Total of 30mg . loratadine (CLARITIN) 10 mg tablet Take 1 (one) tablet (10 mg total) by mouth daily as needed . omeprazole (PRILOSEC) 20 MG capsule Take 1 (one) capsule (20 mg total) by mouth daily . OXYGEN-AIR DELIVERY SYSTEMS MISC by continuous inhalation route as needed (Not using oxygen tanks, unknown #L) . potassium chloride SA (K-DUR,KLOR-CON) 20 MEQ tablet Take 1 (one) tablet (20 mEq total) by mouth every morning . traMADol (ULTRAM) 50 mg tablet Take 1 (one) tablet (50 mg total) by mouth every 6 (six) hours as needed . lisinopriL (PRINIVIL,ZESTRIL) 20 MG tablet Take 1 (one) tablet (20 mg total) by mouth daily Total of 30mg . (Patient not taking: Reported on 10/28/2024 .) Review of Systems: Eyes: Positive for redness. Respiratory: Positive for shortness of breath. Musculoskeletal: Positive for back pain and joint pain. Genitourinary: Positive for urgency. Neurological: Positive for numbness. All other systems reviewed and are negative. Physical Examination: This visit will require a type of examination or procedure in which a trained adobe block maker will be available to enhance the patient's comfort, safety, privacy, security and/or dignity. The trained adobe block maker will administrative support assistant a location where he or she can observe what is going on and assist as needed. Following the above discussion, patient Decline adobe block maker for exam. Vital Signs: BP (!) 135/91 Pulse (!) 109 Temp 99.9 F (37.7 C) GENERAL: Well appearing. No acute distress. EYES: No changes in vision, no blurry vision EARS, NOSE, MOUTH, THROAT: mucous memebranes moist, trachea midline CARDIOVASCULAR/PULMONARY: unlabored breathing without shortness of breath. ABDOMEN: Soft, nondistended, nontender. BACK: No CVA tenderness. (patient declined adobe block maker): Penis is circumcised with an orthotopic meatus. No evidence of urethral discharge. There is a palpable penile mass on the right mid shaft that is nontender to palpation. No edema, erythema or curvature to the penis noted. The scrotum is without masses. Both testicles are descended and without appreciable mass or tenderness. There are no appreciable urethral or perineal masses. No evidence of hydrocele or hernia. MUSCULOSKELETAL: Normal gate, normal extremity ROM with no edema LYMPH: No cervical or supraclavicular lymphadenopathy PSYCHATRIC: A & O x3, mood and affect appropriate Laboratory and Additional Data Reviewed: PSA 10/02/2023 - 6.72 CBC WBC Date Value Ref Range Status 10/31/2023 8.80 4.50 - 11.00 K/mcL Final 06/21/2014 7.20 4.50 - 11.00 K/mcL Final RBC Date Value Ref Range Status 10/31/2023 4.82 4.50 - 5.90 M/mcL Final 06/21/2014 4.65 4.50 - 5.90 M/mcL Final Hemoglobin Date Value Ref Range Status 10/31/2023 14.7 13.5 - 17.5 g/dL Final 06/21/2014 15.1 13.5 - 17.5 g/dL Final Hemoglobin, Blood Gas Date Value Ref Range Status 10/26/2023 16.2 13.5 - 17.5 g/dL Final Hematocrit, Calculated Date Value Ref Range Status 10/26/2023 49.6 41.0 - 53.0 % Final Hematocrit Date Value Ref Range Status 10/31/2023 46.7 41.0 - 53.0 % Final Platelets Date Value Ref Range Status 10/31/2023 254 150 - 400 K/mcL Final 06/21/2014 263 150 - 400 K/mcL Final CHEMISTRY Sodium Date Value Ref Range Status 10/31/2023 139 135 - 145 mmol/L Final 06/21/2014 142 135 - 145 mmol/L Final Potassium Date Value Ref Range Status 10/31/2023 4.4 3.5 - 5.1 mmol/L Final 06/21/2014 4.2 3.5 - 5.1 mmol/L Final Chloride Date Value Ref Range Status 10/31/2023 99 98 - 108 mmol/L Final 06/21/2014 102 98 - 108 mmol/L Final Bicarbonate Date Value Ref Range Status 10/31/2023 29 21 - 32 mmol/L Final 06/21/2014 30 21 - 32 mmol/L Final BUN Date Value Ref Range Status 10/31/2023 9 8 - 25 mg/dL Final 10/25/2023 13 8 - 25 mg/dL Final 06/21/2014 9 8 - 25 mg/dL Final Creatinine Date Value Ref Range Status 10/31/2023 0.65 (L) 0.80 - 1.30 mg/dL Final 06/21/2014 0.81 0.50 - 1.30 mg/dL Final BUN/Creatinine Ratio Date Value Ref Range Status 10/31/2023 13.8 10.0 - 20.0 Final 06/21/2014 11.1 10.0 - 20.0 Final Comment: The above 18 analytes were performed by [address],[place] [address] ALT Date Value Ref Range Status 08/20/2021 10 0 - 40 U/L Final 06/21/2014 14 0 - 40 U/L Final AST Date Value Ref Range Status 08/20/2021 10 0 - 45 U/L Final 06/21/2014 15 0 - 45 U/L Final Alkaline Phosphatase Date Value Ref Range Status 08/20/2021 92 40 - 150 U/L Final 06/21/2014 75 40 - 150 U/L Final Bilirubin, Direct Date Value Ref Range Status 05/28/2020 <0.1 0.0 - 0.4 mg/dL Final Total Bilirubin Date Value Ref Range Status 08/20/2021 0.2 0.0 - 1.3 mg/dL Final 06/21/2014 0.3 0.0 - 1.3 mg/dL Final URINALYSIS Component Latest Ref Rng 10/28/2024 Glucose, UA Normal, Negative mg/dL Negative Bilirubin, UA Negative Negative Ketones, UA Negative mg/dL Negative Spec Grav, UA 1.005 - 1.025 1.010 Blood, UA Negative Negative pH, UA 5.0 - 7.0 5.5 Protein, UA Negative mg/dL Negative Urobilinogen, UA <2.0, 0.2, Normal, Negative, 1.0, 2.0, <1.0 mg/dL 0.2 Nitrite, UA Negative Negative WBC, UA Negative Negative PVR 125 cc (10/28/2024) MICROBIOLOGY URINE CULTURE No results found for: CULTUREURN, EXTCULTUREUR Assessment and Plan/Recommendations: Wolf Turcios is a 64 y.o. male presenting with following medical issues: Peyronie's disease - The patient presents to discuss a lump on the right side of his penis. He states he has noticed this since his bilateral epididymal surgery in 2019. On physical exam the patient has a palpable soft mass on the right side of his penile shaft. It is nontender to palpation but he states it is painful during erections. He denies any curvature to his penis. We discussed the likely etiology of this pertaining to Peyronie's disease in the active phase. We discussed treatment options involving breaking up the scar tissue. I advised he can take NSAIDs as needed prior to intercourse. I will have him follow-up with my colleague Dr. Wooten for further evaluation and management of this. Bladder outlet obstruction - The patient endorses ongoing voiding dysfunction with increased frequency, intermittency, weak stream and nocturia. We discussed the etiology of this pertaining to either a stricture secondary to his Foy catheter 4 years ago versus an enlarged prostate. We reviewed behavioral modifications including limiting bladder irritants like soda, double voiding, and stopping fluids 2-3 hours prior to bedtime. PVR today 125 cc. IPSS 21. I will start him on tamsulosin 0.4 mg daily. We reviewed side effects of the medication. I will have the patient follow-up with Dr. Wooten for a cystoscopy to rule out stricture disease and to discuss Peyronie's disease. Elevated PSA - The patient has a history of elevated PSA of 6.72 on 10/02/2023. He denies any prior PSA checks and has not had this evaluated since. He denies any history of prostate MRI or prostate biopsy. He denies any direct family history of prostate cancer. He states his stepbrother had prostate cancer with his prostate removed but has no blood relation to him. We briefly discussed the meaning of PSA and the management of his value remains elevated on recheck. Plan to have this rechecked. Order placed. A total of 30 minutes were spent reviewing pertinent medical notes from other providers as well as testing and labs in preparation for [id number] visit with the patient today. During this encounter, counseling and coordination of care were also conducted. Specifically we address the risk, benefits, and alternatives to the therapies discussed above. Assessment Detail: Diagnoses and all orders for this visit: Benign prostatic hyperplasia, unspecified whether lower urinary tract symptoms present - Measure post void residual - POC Urinalysis Dipstick, Auto - tamsulosin (FLOMAX) 0.4 mg capsule; Take 2 (two) capsules (0.8 mg total) by mouth every morning before breakfast . Peyronie disease Elevated PSA - PSA, Total and Free; Future Bladder outlet obstruction I greatly appreciate the opportunity to participate in the care of your patient. Please feel free to call with any questions or concerns. Kvng Escoto PA-C [facility] - [facility] Office: [phone] [1] Social History Socioeconomic History Marital status: Single Tobacco Use Smoking status: Every Day Current packs/day: 0.25 Average packs/day: 0.3 packs/day for 55.8 years (13.9 ttl pk-yrs) Types: Cigarettes Start date: 01/19/1969 Smokeless tobacco: Never Tobacco comments: Trying to cut back, 6 cigs per day Vaping Use Vaping status: Never Used Substance and Sexual Activity Alcohol use: Not Currently Comment: 1 beer per month Drug use: Not Currently Types: Crack cocaine Comment: H/o Sober since 2017- now on suboxone Social Drivers of Health Financial Resource Strain: Medium Risk (10/30/2023) Received from [facility] Overall Financial Resource Strain (CARDIA) Difficulty of Paying Living Expenses: Somewhat hard Food Insecurity: Food Insecurity Present (10/31/2023) Hunger Vital Sign Worried About Running Out of Food in the Last Year: Sometimes true Ran Out of Food in the Last Year: Sometimes true Transportation Needs: No Transportation Needs (10/31/2023) PRAPARE - Transportation Lack of Transportation (Medical): No Lack of Transportation (Non-Medical): No Housing Stability: High Risk (10/31/2023) Housing Stability Vital Sign Unable to Pay for Housing in the Last Year: No Number of Places Lived in the Last Year: 3 Unstable Housing in the Last Year: No Review of Systems Eyes: Positive for redness. Respiratory: Positive for shortness of breath. Musculoskeletal: Positive for back pain and joint pain. Genitourinary: Positive for urgency. Neurological: Positive for numbness. All other systems reviewed and are negative. documented in this encounter [facility] 09-22-2024 Radiology Diagnostic study note [facility] Imaging Services [address] [place] [address] Testicular with Arterial Flow MR#: [id number] Acct: [id number] Name: WOLF TURCIOS Jr. Rep #: [id number] : 1960 M 64 From: Martir Mc MD PCP: Dr. Iker Blackwell MD Status: REG CL I Study:Testicular with Arterial Flow Date of E xam: 09/21/24 Exam# [id number] Ordering Dr: Merly Blackwell MD PROCEDURE: TESTICULAR WITH ARTERIAL FLOW 09/21/2024 REASON FOR EXAM: PAIN TECHNIQUE: Lee scale imaging of the scrotal contents. FINDINGS: RIGHT testicle: Measures 4.7 x 3.4 x 2.3 cm Right epididymis: Measures 1.4 x 1.5 x 0.8 cm Right epididymal cysts measuring 0.5 x 0.6 x 0.3 cm LEFT testicle: Measures 4.5 x 2.9 x 2.8 cm Left epididymis: Measures 1.7 x 1.5 x 1.2 cm Left epididymal cyst measuring 0.8 x 0.7 x 0.4 cm. The testicles appear symmetric and isoechoic with bilateral arterial and venous flow seen. Bilateral xzcy-wp-puifafal appearing hydroceles are noted measuring approximately 4.3 x 5.3 x 2 cm on the right and 5.3 x 3.3 x 2.7 cm on the left. US/Testicular with Arterial Flow IMPRESSION: The testicles appear symmetric and isoechoic with bilateral arterial and venous flow seen. Bilateral qtpr-qu-nwrxzhnl appearing hydroceles are noted measuring approximately 4.3 x 5.3 x 2 cm on the right and 5.3 x 3.3 x 2.7 cm on the left. Reading Location: [facility] CC: Dr. Iker Blackwell MD ~ Early Childhood Teacher: Signed [facility] 06-02-2024 Evaluation note Diagnosis Onset Date Resolution Esophageal foreign body acute June 02, 2 024 6:58pm [facility] Work Phone: 1(393) 284-210712-16-2024 [facility] Medical Records Department [address] [place] [address] Discharge Summary 05/23/24 1027 MR#: [id number] Acct: [id number] Name: WOLF TURCIOS Jr. Rep #: [id number] : 1960 64 From: Elijah Guerrero DO PCP: Dr. Iker Blackwell MD Status:ADM MEGAN Location: [place] [address] Providers Date of Admission: 05/20/24 Primary Care Physician: Iker Blackwell MD Reason For Visit: COPD EXACERBATION Diagnosis Discharge Diagnosis (1) Hypoxemia: Status: Acute Code(s): R09.02 - Hypoxemia (2) COPD exacerbation: Status: Chronic Code(s): J44.1 - Chronic obstructive pulmonary disease with (acute) exacerbation Plan Acute COPD exacerbation * discharged 2 days prior with his own oxygen (previously had been using a friend's condenser) * on BDs and methylprednisone * CXR showed no acute process. Hyperinflated airways. * Coughing up green phlegm. Will add amox/CA and observe. Chronic conditions: * History of polysubstance abuse (primarily crack cocaine, alcohol abuse): Patient reports being clean for many years and sober for many years, encourage continued clean and sober status. Reports that he recently moved from [place] to [place] because of concerns with substance abuse around him. * History TIA: Will maintain on aspirin, not on statin therapy per current list which will be deferred outpatient, continue hypertensive regimen as noted, no diabetic history. * Oral thrush: We will continue patient home nystatin oral swish and swallow regimen and encourage appropriate oral care especially after aerosol treatments. * BPH with obstructive pathology: We will continue patient on Flomax regimen. * Tobacco Abuse: Encouraged cessation, inpatient consultation per RT, NR if desired. * GERD: We will continue patient on PPI. VTE prophylaxis: LMWH. Disposition: Patient is overall doing fairly well. It is concerning given his social situation where he lives at home with people that smoke and he was just admitted within 48 hours after being discharged. Me was were inquiring about some skilled nursing facility information. I told him that we can have case management talk to him about some facilities but told him that we would not be the ones to facilitate that upon discharge. I think it would help him overall in regards to some of his underlying anxiety be more at ease about going home if we would have some that information be able to be provided to him. I feel that discharge on the would probably be the best option, assuming he continues to be medically ready at that time. Discharge home. Medications at Discharge Home Medications albuterol sulfate 90 mcg/actuation aerosol inhaler (Ventolin HFA) 1 - 2 puff inhalation Q4H PRN PRN Wheezing #1 ea 01/02/24 fluticasone fur. 100 mcg-umeclid 62.5 mcg-vilant 25 mcg inhalat.powder (Trelegy Ellipta) 1 ea inhalation DAILY breathing 01/21/24 ipratropium 0.5 mg-albuterol 3 mg (2.5 mg base)/3 mL nebulization soln 1.5 ml inhalation Q8H PRN copd 01/21/24 loratadine 10 mg tablet (Allergy Relief (loratadine)) 10 mg PO Q24H PRN allergy symptoms 01/21/24 omeprazole 20 mg capsule,delayed release 20 mg PO DAILY reflux 01/21/24 tamsulosin 0.4 mg capsule 0.4 mg PO DAILY prostate 01/21/24 amlodipine 2.5 mg tablet (Norvasc) 2.5 mg PO DAILY bp #30 tabs 01/22/24 diphenhydramine HCl 25 mg capsule 50 mg (2 x 25 mg) PO TID PRN allergic reaction #20 caps 01/22/24 cyclobenzaprine 10 mg tablet 10 mg PO BID spasm 05/17/24 dextromethorphan-guaifenesin 30 mg-600 mg tablet extended [id number] hr (Mucus DM) 1 tab PO Q12H PRN cough #14 tabs 05/18/24 nystatin 100,000 unit/mL oral suspension 500,000 unit (5 mL) PO 4X/DAY 7 days #140 mL 05/18/24 amoxicillin 875 mg-potassium clavulanate 125 mg tablet 1 tab PO BID #10 tabs 05/23/24 prednisone 20 mg tablet 40 mg (2 x 20 mg) PO DAILY #10 tabs 05/23/24 Hospital Course Operations None Procedures None Summary of Care Provided Minutes Spent on Discharge: 32 Hospital Course: Patient presents with shortness of breath after just being discharged with a COPD exacerbation. Patient was otherwise stable. Patient did require oxygen florian here. He was coughing up green phlegm. Patient was started on Augmentin. His course was uncomplicated. Patient will be discharged back home with oxygen but 2 L continuous. Weight / BMI Weight Weight: 69.7 kg Body Mass Index (BMI) 20.2 ABG / Lab / Microbiology Data 05/21/24 05:30 05/21/24 05:30 Microbiology: Microbiology 05/21/24 20:42 Sputum, Expectorated/Coughed Gram Stain - Final 05/21/24 20:42 Sputum, Expectorated/Coughed Respiratory Culture - Final Pseudomonas aeruginosa D/C Instructions Discharge Diet: No restrictions DC O2, CPAP, BIPAP Needs RN Home O2 Qualification: Home O2 Qualification: Is the patient on home oxygen Yes 05/23/24 08:43 (more content not included)...[facility]12-11-2024 [facility] Medical Records Department [address] [place] [address] Discharge Summary 05/18/24 0937 MR#: [id number] Acct: [id number] Name: WOLF TURCIOS Jr. Rep #: [id number] : 1960 64 From: Elijah Guerrero DO PCP: Dr. Iker Blackwell MD Status:ADM IN Location: [place] [address]1 Providers Date of Admission: 05/17/24 Primary Care Physician: Iker Blackwell MD Reason For Visit: COPD EXACERBATION W/ HYPOXIA Diagnosis Discharge Diagnosis (1) COPD exacerbation: Status: Chronic Code(s): J44.1 - Chronic obstructive pulmonary disease with (acute) exacerbation (2) Hypoxemia: Status: Acute Code(s): R09.02 - Hypoxemia Plan COPD exacerbation with hypoxia, history of nocturnal hypoxia * Continue BDs and methylpred. Change to prednisone. * home oxygen eval. patient has oxygen at home but he is never been set up himself. Patient states that when he goes upstairs, without his oxygen, he is anxious and short of breath. Though he does not check his oxygen so is unclear if he is actually hypoxic though I highly suspect he probably is. Will check home oxygen evaluation and patient will likely require oxygen. Chronic conditions: * Hypertension??? Mildly hypertensive in the ED suspect largely due to COPD exacerbation. Continue home amlodipine. * Tobacco abuse??? Reports only smoking 3 to 4 cigarettes daily at this time. Nicotine patch ordered per patient request. Encouraged cessation on discharge. * BPH with obstructive symptoms Continue home Flomax. * GERD??? Continue home PPI. DVT prophylaxis: enoxaparin CODE STATUS: Full code, verified Expected disposition: Home patient improved much faster than initially anticipated. Medications at Discharge Home Medications albuterol sulfate 90 mcg/actuation aerosol inhaler (Ventolin HFA) 1 - 2 puff inhalation Q4H PRN PRN Wheezing #1 ea 01/02/24 fluticasone fur. 100 mcg-umeclid 62.5 mcg-vilant 25 mcg inhalat.powder (Trelegy Ellipta) 1 ea inhalation DAILY breathing 01/21/24 ipratropium 0.5 mg-albuterol 3 mg (2.5 mg base)/3 mL nebulization soln 1.5 ml inhalation Q8H PRN copd 01/21/24 loratadine 10 mg tablet (Allergy Relief (loratadine)) 10 mg PO Q24H PRN allergy symptoms 01/21/24 omeprazole 20 mg capsule,delayed release 20 mg PO DAILY reflux 01/21/24 tamsulosin 0.4 mg capsule 0.4 mg PO DAILY prostate 01/21/24 amlodipine 2.5 mg tablet (Norvasc) 2.5 mg PO DAILY bp #30 tabs 01/22/24 diphenhydramine HCl 25 mg capsule 50 mg (2 x 25 mg) PO TID PRN allergic reaction #20 caps 01/22/24 cyclobenzaprine 10 mg tablet 10 mg PO BID spasm 05/17/24 dextromethorphan-guaifenesin 30 mg-600 mg tablet extended ownueou91 hr (Mucinex DM) 1 tab PO BID PRN coughing fits #10 tabs 05/18/24 nystatin 100,000 unit/mL oral suspension 500,000 unit (5 mL) PO 4X/DAY 7 days #140 mL 05/18/24 prednisone 20 mg tablet 40 mg (2 x 20 mg) PO DAILY #10 tabs 05/18/24 Hospital Course Operations None Procedures None Summary of Care Provided Minutes Spent on Discharge: 32 Hospital Course: Patient presents with COPD exacerbation. Patient was using oxygen at home but was using someone else's condenser. He would take the oxygen off to go upstairs and will get short of breath and then anxious. Patient will be going home with oxygen 2 L continuous. Patient has been having some paroxysmal coughing fits. Patient will be discharged with prednisone, and guaifenesin with dextromethorphan to help him with his coughing fits. Patient advised to follow- up with pulmonology and will be following up with one of the Dr. Combs in the area for pulmonology. Weight / BMI Weight Weight: 68.4 kg Body Mass Index (BMI) 19.8 ABG / Lab / Microbiology Data 05/18/24 04:12 05/18/24 04:12 Laboratory: Laboratory Results - last 24 hr 05/17/24 15:28: WBC 9.0, RBC 5.15, Hgb 15.5, Hct 49.6, MCV 96.3 H, MCH 30.1, MCHC 31.3 L, RDW Std Deviation 45.3 H, RDW Coeff of Brian 12.6, Plt Count 280, MPV 9.4, Immature Gran % (Auto) 0.200, Neut % (Auto) 65.6, Lymph % (Auto) 19.6, Braxton % (Auto) 8.1, Eos % (Auto) 5.5 H, Baso % (Auto) 1.0, Absolute Neuts (auto) 5.9, Absolute Lymphs (auto) 1.77, Nucleated RBC % 0, Sodium 140, Potassium 3.9, Chloride 105, Carbon Dioxide 31.0, Anion Gap 4 L, BUN 8, Creatinine 0.71, Estim Creat Clear Calc 107.34, Est GFR (MDRD) Af Amer 143, Est GFR (MDRD) Non-Af 119, BUN/Creatinine Ratio 11.3, Glucose 95, Calcium 9.2, Troponin I High Sens 8 05/17/24 18:24: Procalcitonin 0.04 05/18/24 04:12: WBC 9.5, RBC 4.86, Hgb 14.8, Hct 46.1, MCV 94.9 H, MCH 30.5, MCHC 32.1, RDW Std Deviation 44.6 H, RDW Coeff of Brian 12.6, Plt Count 271, MPV 9.5, Sodium 139, Potassium 3.8, Chloride 104, Carbon Dioxide 29.0, Anion Gap 6, BUN 14, Creatinine 0.98, Estim Creat Clear Calc 73.67, Est GFR (MDRD) Af Amer 99, Est GFR (MDRD) Non-Af 82, BUN/Creatinine Ratio 14.3, Glucose 258 H, Calcium 9.2 (more content not included)...[facility]12-10-2024 Evaluation note* Diagnosis Onset Date Resolution Status Admit Date Hypoxemia acute May 17, 2024 5:16pm COPD exacerbation resolved Decembe r 2023 5:16pm Hypoxemia acute May 20, 2024 10:03pm Tobacco abuse acute May 202023 10:03pm COPD exacerbation resolved Decembe r 2023 10:03pm Esophageal foreign body acute D ecember 2023 6:58pm [facility] Work Phone: 1(586) 907-721806-03-2024 Telephone encounter Note* Telephone Encounter - Kiersten Cerna RN - 11/09/2023 10:43 AM EDT Called patient and provided recommendations per PCP's note. Patient expressed understanding with noquestions at this time. [facility]06-03-2024 Miscellaneous Notes* Telephone Encounter - Kiersten Cerna RN - 11/09/2023 10:43 AM EDT Called patient and provided recommendations per PCP's note. Patient expressed understanding with noquestions at this time. * Telephone Encounter - Ivonne Henry MD - 11/08/2023 11:23 PM EDT Recommend patient call his insurance to determine which hospital system will accept his insurance. After determining the hospital system, he will need to choose a location and we can fax over a consult to that specific office so that he can get scheduled. * Telephone Encounter - Leilani Wood MA - 11/05/2023 11:50 AM EDT Patient called in stating he is having issues getting in to see a pulmonary doc. Stated insurance is not accepted with [facility] and not sure what to do. Patient is requesting a callback to see what other options he has so that he could get in to see someone. Please advise. [facility] Tele[facility] encounter Note* Telephone Encounter - Ivonne Henry MD - 11/08/2023 11:23 PM EDT Recommend patient call his insurance to determine which hospital system will accept his insurance. After determining the hospital system, he will need to choose a location and we can fax over a consult to that specific office so that he can get scheduled. [facility]06-02-2024 Miscellaneous Notes* Telephone Encounter - Ivonne Henry MD - 11/08/2023 11:23 PM EDT Recommend patient call his insurance to determine which hospital system will accept his insurance. After determining the hospital system, he will need to choose a location and we can fax over a consult to that specific office so that he can get scheduled. * Telephone Encounter - Leilani Wood MA - 11/05/2023 11:50 AM EDT Patient called in stating he is having issues getting in to see a pulmonary doc. Stated insurance is not accepted with [facility] and not sure what to do. Patient is requesting a callback to see what other options he has so that he could get in to see someone. Please advise. [facility] Telephone encounter Note* Telephone Encounter - Leilani Wood MA - 11/05/2023 11:50 AM EDT Patient called in stating he is having issues getting in to see a pulmonary doc. Stated insurance is not accepted with [facility] and not sure what to do. Patient is requesting a callback to see what other options he has so that he could get in to see someone. Please advise. [facility]05-29-2024 History of Present illness Narrative* Teresa Gay MD, PhD - 11/04/2023 1:30 PM EDT Date of Encounter: 11/04/2023 Chief Complaint The patient is a 63 y.o. male who presents today for Follow-up (Pt states he's here for a hospital follow up for bronchitis day before yesterday). Hospital Follow Up PCP: Ivonne Henry Admitted: [facility] 10/28-10/30, discharged/transferred to [facility] per patient preference and discharged on 10/31 Reason for admission: COPD exacerbation Med changes on discharge: None Studies to follow up: None Patient recently hospitalized for COPD exacerbation likely triggered by medication non-compliance with inhalers due to housing insecurity after running out of his trellegy inhaler. Reports that he was coughing up darker green mucous with non-stop coughing. He notes that since his hospitalization and treatment he received he is overall doing better. His cough has imporved and is less frequent and his mucous has started to lighten in color and and is now on yellow. He was also initially feeling very fatigued and lightheaded due to excessive coughing, both of which have improved. He continues tohave chest pain in his bilateral chest in intercostal muscles, but no palpitations. No fevers/chills. He continues having significant difficulty walking anywhere without feeling faint and short of breath. This is occasionally happening even at rest. His shortness of breath improves with his albuterolrescue inhaler for several hours but states he is taking this as often as 4x daily to help prevent symptoms from getting worse. Also notes he is needing constant oxygen at home ~3L which he previously was using only 2L. Says he He has a home oxygen concentrator that was prescribed by a former doctor, but has never been prescribed portable oxygen and/or has had difficulty obtaining it. He also reports occasionally using a nebulizer but that his mask is broken and is requesting a replacement mask today. Patient presented to [facility] with acute COPD exacerbation He was treated with 5 day course of prednisone 40mg and azithromycin 500mg x 3 days. He had returned to his home 2L oxygen requirement at discharge. COPD exacerbation Satting 92% on room air today but continue to have significant dyspnea with minimal exertion. Overall improved but desaturating easily. Walk testing in office today revealed significant desaturation to 82% with minimal exertion which improved with rest on room air. Suspect he is slowly improving and will continue therapy as noted at hospital discharge. pulmonology and pulmonary rehab for additional eval. He is taking his trellegy daily and taking albuterol as rescue. He also has symbicort for breakthrough. Says he has 3 month supply on all his meds -continue trellegy ellipta 100-62.5-25 daily -continue symbicort TID -continue ventolin resuce inhaler and PRN nebulizer treatments -continue with prolonged prednisone taper as still symptomatic -30mg for 2 days, 20 mg to 2 days and 10mg for 2 days before stopping -discontinue amoxicillin -reviewed ambulatory O2 sats in office with desat to 82% on room air with minimal exertion (see nursing note for documentaion of walk testing) -home oxygen prescription provided -will prescribe home oxygen today -referral to pulmonary rehab placed -pulm referral today given multiple COPD exacerbations in past year and overall poor control -consider if candidate for long-term azithromycin in future -discussed return precautions for patient to return to emergency department of worsening of symptoms, difficulty breathing not responding to inhalers, or other concerning changes Allergies Allergen Reactions Codeedgar Hives Current Outpatient Medications Medication Sig Dispense Refill albuterol 108 (90 Base) MCG/ACT Aero Soln inhaler Inhale 1 puff by mouth every 6 hours as needed for wheezing. 18 g 0 Cyclobenzaprine 10 MG tablet Take 1 tablet by mouth 2 times daily as needed for Muscle spasms. 60 tablet 3 furOSEmide 20 MG tablet Take 1 tablet by mouth daily. Ipratropium-albuterol 0.5-2.5 (3) MG/3ML nebulizer solution Take 3 mL by nebulization every 6 hoursas needed for Shortness of Breath. Lisinopril 10 MG tablet Take 1 tablet by mouth daily. Lisinopril 20 MG tablet Take 1 tablet by mouth daily. Total 30 mg daily Loratadine 10 MG tablet Take 1 tablet by mouth Every morning as needed. 90 tablet 3 Nystatin [id number] UNIT/ML oral suspension Swish and swallow 10 mL 4 times daily. omeprazole [address] capsule Take 1 capsule by mouth daily. Potassium chloride 20 MEQ Tab CR tablet Take 1 tablet by mouth daily. prednisoLONE-Moxifloxacin 1-0.5 % Solution Apply to eye. predniSONE 20 MG tablet Take 2 tablets by mouth daily for 4 days. Tamsulosin HCl 0.4 MG capsule Take 1 capsule by mouth daily. Trelegy Ellipta 100-62.5-25 MCG/ACT Aerosol Powder, breath activated inhaler Inhale 1 puff daily. 60 Each 6 No current facility-administered medications for this visit. Review of Systems As discussed above in HPI. Physical Exam Blood pressure 126/66, pulse 99, resp. rate 20, height 1.88 m (6' 2), weight 65.5 kg (144 lb 6.4 oz), SpO2 92%. Physical Exam Constitutional: General: He is not in acute distress. Appearance: He is ill-appearing. HENT: Head: Normocephalic and atraumatic. Mouth/Throat: Mouth: Mucous membranes are moist. Eyes: General: No scleral icterus. Cardiovascular: Rate and Rhythm: Normal rate and regular rhythm. Heart sounds: No murmur heard. Pulmonary: Effort: Pulmonary effort is normal. Breath sounds: Wheezing (scattered bilaterally, R>L) present. Abdominal: General: Abdomen is flat. Bowel sounds are normal. Palpations: Abdomen is soft. Skin: General: Skin is warm and dry. Neurological: General: No focal deficit present. Mental Status: He is alert. Mental status is at baseline. Psychiatric: Mood and Affect: Mood normal. Behavior: Behavior normal. ICD-10-CM 1. Chronic obstructive pulmonary disease with acute exacerbation J44.1 AMB REFERRAL TO PULMONARY REHAB NEBULIZER MASK AMB REFERRAL TO PULMONARY OXYGEN FOR HOME Requested Prescriptions No prescriptions requested or ordered in this encounter Patient to return to clinic as previously scheduled. This case was discussed with Dr Angelina Gay MD, PhD Resident, Department of Internal Medicine [facility] * Zi Alfaro MD - 11/04/2023 1:30 PM EDT Attending Addendum (GC): This patient was discussed, examined, and evaluated with the resident physician on the day of the encounter. I have independently confirmed essential components of the medical history and the physical examination [id number] with the patient. I agree with the above therapeutic plan, with the following addendum: Wolf Turcios was seen today for HFU after COPD exacerbation in the setting of insurance issues resulting in running out of controlled meds. Doing better but still coughing up mucus. On trelegy ellipta daily, needing albuterol 4x/day, needs new nebulizer mask. Still on prednisone taper. O2 Sat 92% on RA at rest. Will initiate pulm rehab referral. Zi Alfaro MD Chief Librarian Circulation Department of Clinical Medicine Division of General Internal Medicine * Leilani Linn - 11/04/2023 1:30 PM EDT Name and verified by this MA. Performed walk test with pt to measure his oxygen levels. When we began at @ 2:30 his O2 level was 90%. We walked 15-20 feet it dropped to 89 with sob, after 10 steps later, pt's O2 level was 82 and pt was experiencing very shortness of breath. Because the pt was so winded the walk test was ended and I grabbed the pt's wheelchair to take him back to his room. documented in this encounterU [facility] Instructions* Patient Instructions* Teresa Gay MD, PhD - 11/04/2023 1:30 PM EDT You were seen for hospital follow up. Below is a summary of some of what we discussed today: -we will continue all your home inhalers -you can continue your prednisone taper as we ordered -you can continue the loratadine allergy medication -you can stop amoxicillin as you were already treated for your COPD exacerbation and they had recommended you stop this after your recent hospitalization -we will refer you to pulmonary rehab today. Please call [phone] to schedule your appointment with Pulmonary rehabilitation. -we will also refer you to pulmonology for help with considering additional options or better ways to control your COPD. Please call [phone] to schedule your appointment with Pulmonology. -if your symptoms get any worse, you develop fevers or difficulty breathing that doesn't respond toyour inhalers you should call us right away or go to the emergency room documented in this encounterOSU [facility] History of Present illness Narrative* Keyana Ibarra RN - 11/03/2023 9:00 AM EDT Transitional Care Management Keyana Ibarra RN 11/03/2023 2:07 PM Transitional Care Management Note (Initial) Discharge location and date - [facility] 10/30 then transferred to [facility] and discharged on 10/31 Contact made within 2 business days - Yes Discharge documents reviewed - [facility]: presented with increased dyspnea and phlegm production consistent with AECOPD. Likely triggered by medication non-compliance with inhalers due to housing insecurity. Initial labs notable for respiratory acidosis which improved with brief stint of BiPAP. He was treated with prednisone, azithromycin, breathing treatments, and home Trelegy equivalent. He returned to his home [facility]. Due to insurance concerns, the patient preferred transfer to outside facility which was accommodated. [place]: Pt did not meet criteria for home oxygen at this time per evaluation. He does admit to taking home meds however recently ran out of some inhalers. Medications review - Patient reports he was able to get his new medications. Patient declined doing medication reconciliation but RN did review medications dosage prescription for loratadine and prednisone as patient hadquestions regarding the dosages. RN answered patient's questions. START taking: azithromycin (ZITHROMAX) Start taking on: November 02, 2023 nicotine (NICODERM CQ) Start taking on: November 02, 2023 CHANGE how you take: predniSONE (DELTASONE) -- medication strength, See the new instructions. STOP taking: amoxicillin 500 MG capsule (AMOXIL) CONTINUE taking your other medications Review your updated medication list below. Anticoagulant issues - no Follow-up appointments - Follow-up on tests - Patient status - Patient reports he is not doing well and is still having shortness of breath upon exertion and slight shortness of breath at rest. He reports he has been using the inhalers which helps temporarily. Patient reports he cannot go without oxygen. Patient reports currently he is having some SOB due to talking. RN advised if patient is having SOB at rest that inhaler does not resolveto go to ED. Patient also reports his coughing and mucus secretions is getting better. Patient verbalized understanding and has no questions or concerns at this time Patient was able to speak in full sentences without audible wheezing or shortness of breath throughout conversation. Does patient receive home health care (if no and patient may benefit, route to PCP and career discovery teacher) - no Name of patient's home health agency - N/a Instructions provided - If SOB upon exertion occurs, sit down and rest. If SOB upon rest occurs that inhaler does not resolve go to ED Call PCP office with worsening symptoms, questions or concerns Confirm appointment with PCP within 7 days (very complex) or 14 days (complex) - Patient scheduled tomorrow. * Keyana Ibarra RN - 11/03/2023 9:00 AM EDT Called and followed up with patient. He reports today his breathing is doing better and he woke up feeling better today. He reports he kept his oxygen on all day yesterday at 3 liters. He reports sometimes he keeps it onall day and other times he does not. He reports he got the oxygen machine out of his garage about aweek ago and he put it into distilled water to get the tubing cleaned. He reports yesterday his symptoms were about the same as the hospital and did not worsen from the hospital.Today he reports ithas improved since the hospital and is currently at baseline. He also reports yesterday when he went to the grocery store he got very out of breath, however it resolved once he got back home and rested. He is asking about a portable oxygen tank. RN advised to discuss with PCP during appointment. Patient also reports he is feeling pins and needles and he thinks it is from the steroids. He reports it comes and goes and typically occurs shortly after having the steroids and will last about 3 or4 minutes. Denies any swelling or redness on his body. Also reports his mucus secretions are white/clear now, are coming back to normal, and are easily being cleared now. Patient is scheduled for an appointment today, RN advised to discuss symptoms at office visit appointment, and advised if symptoms worsen or if patient experiences SOB at rest that inhaler does not resolve to go to ED. Patient verbalized understanding and has no questions or concerns at this time documented in this encounterOSU [facility] NoteHMS PROGRESS NOTE Assessment and Plan Wolf Turcios is a 63 y.o. male patient of Ivonne Henry MD with history of COPD on chronic as needed oxygen, hypertension who presented to [facility] on 10/31/2023 with respiratory failure, COPD flare. Acute on chronic hypoxic respiratory failure On 2L O2 NC prn at home Requiring 3L O2 NC on admission, weaned to room air Home O2 eval completed and sats > 91% with ambulation on room air Continue home O2 prn AECOPD Admitted (10/24-10/26) at [facility] and then readmitted to [facility] (10/29) for the same Transferred to [facility] due to insurance Afebrile, no leukocytosis CXR at [facility] 10/28 concerning for fibrotic process Continue Azithro course to complete 5 days Prednisone resumed and discharged home on taper Pt got nebulizer supplies prescribed after hospitalization at [facility], not able to get new nebulizer (pt states has nebulizer) Mucinex started Home Trelegy Rx sent to pharmacy Pulmonary nodules CT lung cancer screening (10/12/2023) with multiple pulmonary nodules, subpleural nodule in the RUL Per radiology, likely benign based on location and characteristics Repeat CT scan was recommended in 6 months Essential hypertension Continue home Lisinopril and Lasix Monitor PUD History of perforated duodenal ulcer History of H pylori S/p esau patch 2017 S/p triple abx therapy Resume PPI BPH Resume Flomax Chronic back pain Lumbar DDD with radiculopathy Continue home meds History of cocaine dependence In remission Tobacco dependence Smoking since age 9 Smokes 1ppd Cessation advised NRT started Rx for nicoderm at discharge Resolved acute medical issues Discharge Planning Medically Stable for Discharge Date: 10/31 Patient requires continued hospitalization due to: Medically ready Discharge Location: Home Quality Measures DVT Prophylaxis: lovenox Foy Catheter: absent Code Status Full Code Primary Contact Information Subjective Pt states his chest still feels tight, still with coughing. Asking for new oxygen concentrator as he states he thinks his is making him sick. Denies fevers, chills, chest pain, nausea or vomiting. Objective BP 125/80 (BP Location: Right arm, Patient Position: Lying) Pulse 92 Temp 97.7 degrees F (36.5 degrees C) (Oral) Resp 12 Ht 6' 1 Wt 65.8 kg (145 lb) SpO2 97% BMI 19.13 kg/m Physical Examination General Appearance: alert; chronically ill appearing; in no acute distress HEENT: Head- normocephalic; Eyes- EOMI, sclera anicteric; Throat- mucous membranes moist Cardiovascular: regular rate and rhythm; normal S1, S2; no murmurs, rubs, clicks or gallops; peripheral edema absent Respiratory: lungs with scattered wheezes, but good air movement, no respiratory distress; on 1L O2 nasal cannula Abdomen: soft, non-tender, non-distended Neurological: oriented x 3; normal speech; no focal findings or movement disorder noted Musculoskeletal: no significant deformity or tenderness to palpation Skin: normal coloration, no rashes Psych: normal mood and affect AUTHENTICATED BY PABLO DAVILA, ON 11/01/2023 11:41:12[facility]05-25-2024 NoteHMS HISTORY AND PHYSICAL -- [facility] Patient Name: Wolf Turcios : 1960 MR #: [id number] Admit Date: 10/31/2023 Physicians: Ivonne Henry MD (Family); Loreto Walsh MD (Referring) Wolf Turcios is a 63 y.o. male patient of Ivonne Henry MD with history of COPD on chronic as needed oxygen, hypertension who presented to [facility] on 10/31/2023 with respiratory failure, COPD flare. Acute hypoxic, hypercapnic respiratory failure AECOPD At baseline only uses oxygen at home as needed up to 2L (pt believes canister is compromised and requesting new) Recently discharged from [facility] on 10/26 on room air Represented to OSH with acute dyspnea and was found to be hypoxic requiring up to 3L NC Possible non-compliance with home inhalers CXR at [facility] 10/28 concerning for fibrotic process. No dense consolidations or infiltrates reported. Azithromycin continued, prednisone, mucinex Continued duonebs Pulmonary toilet Pulmonary nodules CT lung cancer screening 10/12/2023 with multiple pulmonary nodules, subpleural nodule in the RUL Per radiology, likely benign based on location and characteristics Repeat CT scan was recommended in 6 months Essential hypertension BP mildly elevated Continue home Lisinopril and Lasix Monitor PUD History of perforated duodenal ulcer History of H pylori S/p esau patch 2017 S/p triple abx therapy Resume PPI Encouraged tobacco cessation BPH Resume Flomax Chronic back pain Lumbar DDD with radiculopathy Continue home meds History of cocaine dependence In remission Tobacco dependence Smoking since age 9 Currently smokes Cessation advised Liz accepted Residence prior to admission: house or apartment Was patient transferred from outlying hospital or ED [facility] ED Quality Measures DVT Prophylaxis: lovenox Foy Catheter: absent Medication Reconciliation: Verified Admitted with these risk variables:Acute Respiratory Failure. Please see assessment and plan for further details. Estimated Date of Discharge less than 2 midnights Code Status Full Code; code status verified on 10/31/2023 with patient (capacity intact) Chief Complaint cough, sob History of Present Illness Wolf Turcios is a 63 y.o. male patient of Ivonne Henry MD with history of COPD on chronic as needed oxygen, hypertension who presented to [facility] on 10/31/2023 with respiratory failure, COPD flare. Pt reports worsening dyspnea over the last few days. Green sputum production. Congested cough. He states lungs feel tight. He reports wheezing at home despite home inhalers. No fever. No nausea or vomiting. No chest pressure or palpitations. Pt believes his oxygen tank is faulty and possibly has mold. He does admit to taking home meds however recently ran out of some inhalers. He denies any sick contacts or travel. Past Medical History Past Medical History: Diagnosis Date Arthritis Asthma Cataract Bilat- s/p Right eye laser Chest pain +ED 09/21/20- Troponin and Chest CT-Neg for PE showed pneuomia and emphysema Cocaine abuse in remission ([facility]) None since 2015- now on suboxone COPD (chronic obstructive pulmonary disease) ([facility]) Multiple ED visits- last 08/2020 Edema BLE + ED visit 07/25/20 Emphysema of lung ([facility]) Severe Essential hypertension 01/10/2017 Hyperlipidemia Neck pain Peptic ulcer disease PUD (peptic ulcer disease) Sepsis due to pneumonia ([facility]) 04/2020 Multiple ED visits- last 08/2020. Saw Pulm Dr Hollis while IP 04/20/20 Thoracic aortic aneurysm ([facility]) States d/t drug overdose TIA (transient ischemic attack) Tobacco abuse Past Surgical History Past Surgical History: Procedure Laterality Date ARTHROPLASTY HIP TOTAL Right 01/28/2021 Procedure: RIGHT TOTAL HIP ARTHROPLASTY; Surgeon: Teresa Terry MD; Location: [facility] OR; Service: Orthopedic EYE SURGERY Right Laser for cataract GASTRIC ULCER PERFORATION REPAIR Family History Family History Problem Relation Age of Onset Diabetes Mother Diabetes Father Throat cancer Sister Heart attack Maternal Grandmother Pulmonary embolism Neg Hx Deep vein thrombosis Neg Hx Clotting disorder Neg Hx Heart disease Neg Hx Anesthesia problems Neg Hx Surgical complications Neg Hx Social History Social History Tobacco Use Smoking Status Every Day Packs/day: 0.25 Years: 39.00 Additional pack years: 0.00 Total pack years: 9.75 Types: Cigarettes Start date: 01/19/1969 Smokeless Tobacco Never Tobacco Comments Trying to cut back, 6 cigs per day Social History Substance and Sexual Activity Alcohol Use Not Currently Comment: 1 beer per month Social History Substance and Sexual Activity Drug Use Not Currently Types: Crack cocaine Comment: H/o Sober since 2017- now on suboxone Allergy Information I have reviewed the patient's allergie (more content not included)...[facility]05-25-2024 Nurse Note* Nursing Notes - Austin Castro RN - 10/31/2023 11:36 AM EDT After review of the AVS by bedside RN, patient verbalized understanding and denies any questions orconcerns related to medications or follow up plans. PIV remained due to transfer to another inpatient hospital. Patient reports all personal belongings accounted for at the time of discharge. [facility]will [facility] ambulance for discharge to [facility]. Austin Castro RN [facility]05-25-2024 Miscellaneous Notes* Nursing Notes - Austin Castro RN - 10/31/2023 11:36 AM EDT After review of the AVS by bedside RN, patient verbalized understanding and denies any questions orconcerns related to medications or follow up plans. PIV remained due to transfer to another inpatient hospital. Patient reports all personal belongings accounted for at the time of discharge. Patientwill be transported to the [facility] ambulance for discharge to [facility]. Austin Castro RN * Plan of Care - Austin Castro RN - 10/31/2023 10:14 AM EDT Problem: Adult Inpatient Plan of Care Goal: Readiness for Transition of Care Outcome: Not Progressing Problem: Adult Inpatient Plan of Care Goal: Plan of Care Review Outcome: Progressing Flowsheets (Taken 10/31/2023 1014) Progress: no change Plan of Care Reviewed With: patient * Nursing Notes - Austin Castro RN - 10/31/2023 7:19 AM EDT Provided report to Jaylin (Transfer Nurse) RN [phone]. The patient will be transferred to [facility] to Medical Surgical Orthopedic Unit (Room 3001). Faxed over PREM and AVS to [phone] * Plan of Care - Betty Wellington RN - 10/31/2023 2:28 AM EDT Problem: Adult Inpatient Plan of Care Goal: Plan of Care Review Outcome: Progressing Goal: Patient-Specific Goal (Individualized) Outcome: Progressing Goal: Absence of Hospital-Acquired Illness or Injury Outcome: Progressing Goal: Optimal Comfort and Wellbeing Outcome: Progressing Goal: Readiness for Transition of Care Outcome: Progressing Problem: PT - General Goals Goal: Supine <-> Sit Transfers - Patient will perform supine to/from sit transfers with independence and without use of hospital bed features in order to improve functional mobility and safety. Outcome: Progressing Goal: Sit <-> Stand Transfers - Patient will perform sit to/from stand transfers with independence and without an assistive device in order to improve functional mobility and safety. Outcome: Progressing Goal: Standing Endurance/Balance - Patient will perform standing balance tasks for 8 min with modified independence and least restrictive device while maintaining an RPE of less than 6/10 to improve endurance and safety with standing tasks. Outcome: Progressing Goal: Ambulation - Patient will ambulate 150 feet with modified independence and least restrictive device to improve ability to safely navigate home and community. Outcome: Progressing Goal: Curb Step - Patient will ascend/descend curb step with modified independence and without an assistive device to improve ability to safely navigate home and community. Outcome: Progressing Problem: OT - ADLs Goal: Lower Body Dressing - Patient will complete lower body dressing tasks with modified independence using adaptive equipment/compensatory strategies as needed for improved ability to complete self-care activities. Outcome: Progressing Goal: Toileting - Patient will complete toileting task with modified independence and adaptive equipment as needed for improved ability to safely complete self-care activities. Outcome: Progressing Goal: Bathing - Patient will perform full body bathing routine with modified independence while seated for improved ability to complete self-care activities Outcome: Progressing Problem: OT - Other Goal: Energy Conservation with ADL's - Patient will independently utilize at least 2 energy conservation/pacing strategies during ADL completion to promote success and safety during daily routine. Outcome: Progressing * Nursing Notes - Lawrence Pérez RN - 10/31/2023 12:10 AM EDT Patient reports having 6/10 intermittent midsternal chest pain that is exacerbated with coughing. Obtained vital signs and administered prn Tylenol and Flexiril. Notified on-call [facility] 3 Physician (Dr. Flynn). No new orders at this time. RAY Hernández (on-coming RN) also made aware. * Nursing Notes - Lawrence Pérez RN - 10/30/2023 11:00 PM EDT Received discharge order from covering physician. Called medical transportation to set up. Providedreport and transport tentatively scheduled for 0800. Charge nurse made aware. Spoke with RAY Mosqueda (charge nurse) at [facility] to make aware of pending transport time. Confirmed with RAY Mosqueda that patient will be admitted to [facility] Med[facility]urg [facility]o room 3001. * Nursing Notes - Austin Castro RN - 10/30/2023 7:35 PM EDT Bonnie (Transfer Nurse) RN from [facility] reported the patient's room is now available. The patient will be transferred to [facility] to Medical Surgical Orthopedic Unit (Room 3001). This nurse provided report. Bonnie BELL requested two face sheets to be sent with the patient and face sheets, AVS, PREM, and any imaging to be faxed to [phone]. This worker informed Lawrence BELL (9ER) of this information. * Plan of Care - Lucy Hoyt RCP - 10/30/2023 9:12 AM EDT Wolf Turcios is a 63 y.o. male with a past medical history of: Past Medical History: Diagnosis Date Cocaine use inhaled crack cocaine COPD (chronic obstructive pulmonary disease) Essential hypertension 01/10/2017 Sciatica TIA (transient ischemic attack) 01/2017 Tobacco use Past Surgical History: Procedure Laterality Date LAPAROTOMY EXPLORATORY N/A 10/12/2017 Laterality: N/A; Surgeon: Jihan Olivarez MD; Location: [facility] MAIN OR FINGER SURGERY 2008 SKIN GRAFT Social History Tobacco Use Smoking status: Every Day Current packs/day: 0.25 Types: Cigarettes Smokeless tobacco: Never Tobacco comments: 50+ pack year history Substance Use Topics Alcohol use: Not Currently Full Code No active isolations Recent Vitals: Blood pressure 138/68, pulse 97, temperature 98.2 F (36.8 C), temperature source Oral, resp. rate 18, height 1.88 m (6' 2), weight 63.9 kg (140 lb 14.4 oz), SpO2 97%. Recent ABG/VBG: Home Medications: Prior to Admission Medications Prescriptions Last Dose Informant Patient Reported? Taking? ClearLax 17 GM/SCOOP Powder powder Yes No Cyclobenzaprine 10 MG tablet 10/29/2023 No Yes Sig: Take 1 tablet by mouth 2 times daily as needed for Muscle spasms. Gabapentin 300 MG capsule Yes No Sig: Take 1 capsule by mouth 3 times daily as needed for Other (pain). R Ipratropium-albuterol 0.5-2.5 (3) MG/3ML nebulizer solution More than a month Yes No Sig: Take 3 mL by nebulization every 6 hours as needed for Shortness of Breath. Lisinopril 10 MG tablet 10/29/2023 Yes Yes Sig: Take 1 tablet by mouth daily. Lisinopril 20 MG tablet 10/29/2023 Yes Yes Sig: Take 1 tablet by mouth daily. Total 30 mg daily Loratadine 10 MG tablet 10/29/2023 No Yes Sig: Take 1 tablet by mouth Every morning as needed. Nystatin 164853 UNIT/ML oral suspension 10/29/2023 Yes Yes Sig: Swish and swallow 10 mL 4 times daily. Potassium chloride 20 MEQ Tab CR tablet 10/29/2023 Yes Yes Sig: Take 1 tablet by mouth daily. Tamsulosin HCl 0.4 MG capsule 10/29/2023 Yes Yes Sig: Take 1 capsule by mouth daily. Trelegy Ellipta 100-62.5-25 MCG/ACT Aerosol Powder, breath activated inhaler Past Month No Yes Sig: Inhale 1 puff daily. albuterol 108 (90 Base) MCG/ACT Aero Soln inhaler 10/29/2023 No Yes Sig: Inhale 1 puff by mouth every 6 hours as needed for wheezing. docusate 100 MG capsule Yes No Sig: Take 1 capsule by mouth 2 times daily as needed for Constipation. furOSEmide 20 MG tablet 10/29/2023 Yes Yes Sig: Take 1 tablet by mouth daily. guaiFENesin 600 MG Tab SR 12 HR tablet SR No No Sig: Take 1 tablet by mouth 2 times daily as needed for Cold Symptoms or Cough. omeprazole [address] capsule 10/29/2023 Yes Yes Sig: Take 1 capsule by mouth daily. prednisoLONE-Moxifloxacin 1-0.5 % Solution Past Week Yes Yes Sig: Apply to eye. Facility-Administered Medications: None Breath Sounds: Diminished, wheezes expiratory Current Orders: Duoneb Q6 Breztri Rx Indication: COPD Respiratory Plan of Care: Continue to monitor patients work of breathing. Work on smoking cessation. Reassess tx in 24 hours. The patients respiratory plan of care was updated by Lucy Hoyt RCP 10/30/2023 9:13 AM * Plan of Care - Nancy De Leon PT - 10/30/2023 8:31 AM EDT Problem: PT - General Goals Goal: Supine <-> Sit Transfers - Patient will perform supine to/from sit transfers with independence and without use of hospital bed features in order to improve functional mobility and safety. Outcome: Ongoing Goal: Sit <-> Stand Transfers - Patient will perform sit to/from stand transfers with independence and without an assistive device in order to improve functional mobility and safety. Outcome: Ongoing Goal: Standing Endurance/Balance - Patient will perform standing balance tasks for 8 min with modified independence and least restrictive device while maintaining an RPE of less than 6/10 to improve endurance and safety with standing tasks. Outcome: Ongoing Goal: Ambulation - Patient will ambulate 150 feet with modified independence and least restrictive device to improve ability to safely navigate home and community. Outcome: Ongoing Goal: Curb Step - Patient will ascend/descend curb step with modified independence and without an assistive device to improve ability to safely navigate home and community. Outcome: Ongoing * Plan of Care - Alyce Barahona OT - 10/30/2023 8:31 AM EDT Problem: OT - ADLs Goal: Lower Body Dressing - Patient will complete lower body dressing tasks with modified independence using adaptive equipment/compensatory strategies as needed for improved ability to complete self-care activities. Outcome: Ongoing Goal: Toileting - Patient will complete toileting task with modified independence and adaptive equipment as needed for improved ability to safely complete self-care activities. Outcome: Ongoing Goal: Bathing - Patient will perform full body bathing routine with modified independence while seated for improved ability to complete self-care activities Outcome: Ongoing Problem: OT - Endurance Goal: Endurance Functional Mobility - Patient will complete distance needed for limited community mobility with no rest breaks for improved tolerance to safely complete I/ADL's Outcome: Ongoing Goal: Endurance Functional Task Standing - Patient will engage in standing functional task for 8+ minutes with modified independence to improve activity tolerance necessary for safe ADL completion atrecommended discharge destination. Outcome: Ongoing Problem: OT - Other Goal: Energy Conservation with ADL's - Patient will independently utilize at least 2 energy conservation/pacing strategies during ADL completion to promote success and safety during daily routine. Outcome: Ongoing * Nursing Notes - Ruth Calvert RN - 10/29/2023 10:30 PM EDT Pt arrived by cart from ED accompanied by RN. Updates given to this RN by RAY Sams from ED. Pt belongings at bedside, no reports of missing items. Pt appears SOB, but was able to ambulate to bed without issue. Pt main complaint was pain in L Rib area (treated in ED), and hunger/thirst. Pt was provided food from [employer], and admission was completed. On admission to [facility], from ED a dual RN initial assessment of skin condition was performed by Ruth Calvert RN and Jamal Diggs RN. Skin Assessment: Skin within defined limits:Yes Farooq Score: 21 LDA Added:No Ruth Calvert RN [facility] Narrative* Broderick Tejada MD - 10/31/2023 10:36 AM EDT Images from the original note were not included. Internal Medicine Discharge Summary Patient Name Wolf Turcios Age (Date of ) 63 y.o. (1960) Admit Date 10/29/2023 Discharge Date 10/31/2023 Inpatient Days 1 Primary Diagnoses Acute exacerbation of COPD Chronic respiratory acidosis Recommendations Prednisone 40 mg daily x5 days, consider prolonged taper if still significantly symptomatic Azithromycin 500 x 3 days Home Trelegy or equivalent PRN breathing treatments Consult to pulmonary rehab Dear Doctors, I recently had the opportunity to care for Wolf Turcios during his recent hospital stay at [facility]. As you may know, Wolf Turcios is a 63 y.o. male with a history of COPD, HTN, and TIA. He presented with increased dyspnea and phlegm production consistent with AECOPD. Likely triggered by medication non-compliance with inhalers due to housing insecurity. Initial labs notable for respiratory acidosis which improved with brief stint of BiPAP. He was treated with prednisone, azithromycin, breathing treatments, and home Trelegy equivalent. He returned to his home [address] [place]. Due to insurance concerns, the patient preferred transfer to outside facility which was accommodated. Upon discharge the patient's code was Full Code Please see the remainder of this document for relevant data from this admission as well as the patient's discharge instructions and follow-up appointments.. An electronic copy of the patient's records can be obtained via [facility] at [email or web address] It has been my pleasure participating in this patient's care. Please contact me with any questions or concerns regarding his hospital stay. The total time of discharge was 35 minutes. Sincerely, Broderick Tejada MD Dictated under attending physician Loreto Walsh MD Division of Hospital Medicine p: [phone] f: [phone] Relevant Data from this Admission Vitals BP: 146/81 Pulse (Heart Rate): 126 Resp Rate: 16 Temp: 98.6 F (37 C) O2 Sat (%): 96 % Weight: 63.9 kg (140 lb 14.4 oz) Physical Exam on Discharge Gen: Chronically ill appearing but in no acute distress Resp: Diminished breath sounds bilaterally. No respiratory distress CV: RRR, normal S1 and S2, No TRIPP Psych: Ox3, appropriate affect and cognition Recent Labs 10/29/23 1033 10/30/23 0317 WBC 8.68 6.36 HGB 15.9 13.4 PLATELET 195 183 SODIUM 136 144 POTASSIUM 4.2 4.0 CO2 34* 34* ANIONGAP 7 11 BUN 13 13 CREATSERUM 0.82 0.71 MAGNESIUM -- 2.0 PHOSPHORUS -- 2.7 BNP 12 -- Relevant Imaging XR CHEST 1 VIEW PORTABLE, 10/29/2023 IMPRESSION: I suspect the findings are related to a fibrotic process predominantly. No dense consolidation. Patient Instructions on Discharge Future Appointments Date Time Provider Department Center 02/02/2024 1:40 PM Ivonne Henry MD [facility] No follow-up provider specified. Medication List ASK your doctor about these medications Cyclobenzaprine 10 MG TABS Commonly known as: FLEXERIL Take 1 tablet by mouth 2 times daily as needed for Muscle spasms. furOSEmide 20 MG TABS Commonly known as: LASIX Ipratropium-albuterol 0.5-2.5 (3) MG/3ML nebulizer solution Commonly known as: DUONEB * Lisinopril 20 MG TABS Commonly known as: PRINIVIL * Lisinopril 10 MG TABS Commonly known as: PRINIVIL Loratadine 10 MG TABS Commonly known as: CLARITIN Take 1 tablet by mouth Every morning as needed. Nystatin 251384 UNIT/ML oral suspension Commonly known as: MYCOSTATIN omeprazole [address] capsule Commonly known as: PRILOSEC Potassium chloride 20 MEQ tab ER tablet Commonly known as: K-DUR prednisoLONE-Moxifloxacin 1-0.5 % SOLN Tamsulosin HCl 0.4 MG CAPS Commonly known as: FLOMAX Trelegy Ellipta 100-62.5-25 MCG/ACT AEPB inhaler Generic drug: urefknxlqtk-vjbkodkjh-Rtjhlt Inhale 1 puff daily. Ventolin HFA 108 (90 Base) MCG/ACT AERS inhaler Generic drug: Albuterol Inhale 1 puff by mouth every 6 hours as needed for wheezing. * This list has 2 medication(s) that are the same as other medications prescribed for you. Read thedirections carefully, and ask your doctor or other care provider to review them with you. Associated attestation - Loreto Walsh MD - 10/31/2023 11:27 AM EDT I saw and evaluated the patient independently on 10/31/23. I discussed the plan of care with the residents. I have personally reviewed all available clinical data related to today's encounter, including but not limited to laboratory studies, radiology images and reports. I have reviewed the resident note and agree with the findings and plan of care as documented. Patient will be transferring to [facility] for continued care for his COPD exacerbation due to insurance concerns. Together with the resident, we spent ~35 minutes with discharge management on the day of discharge. Loreto Walsh MD Hospital Medicine Pager: #[phone] * Zohaib Flynn MD - 10/30/2023 10:33 PM EDT Images from the original note were not included. Discharge Summary Name: Wolf Turcios Age: 63 y.o. Birthday: 1960 Admit Date: 10/29/2023 2:59 PM Discharge Date: 10/30/2023 Discharge Time: 2300 Discharge Unit: Gen Med 3 Admission Information Admitting Physician: Kirk Ragland MD Discharge Information Discharge Physician: Loreto Walsh MD Problem List Active Hospital Problems Diagnosis Chronic obstructive pulmonary disease with acute exacerbation History of TIA (transient ischemic attack) BPH (benign prostatic hyperplasia) History of substance use disorder PUD (peptic ulcer disease) Essential hypertension Chronic Resolved Hospital Problems No resolved problems to display. RESULTS / STUDIES PENDING AT DISCHARGE: FURTHER RECOMMENDATIONS: DISCHARGE LETTER: Dear Doctors, I recently had the opportunity to care for Wolf Turcios during his recent hospital stay at [facility]. The following describes his hospital course. Primary Diagnoses Acute exacerbation of COPD Chronic respiratory acidosis Recommendations Prednisone 40 mg daily x5 days, consider prolonged taper if still significantly symptomatic Azithromycin 500 x 3 days Home Trelegy or equivalent PRN breathing treatments Counseled on smoking cessation Dear Doctors, I recently had the opportunity to care for Wolf Turcios during his recent hospital stay at [facility]. As you may know, Wolf Turcios is a 63 y.o. male with a history of COPD, HTN, and TIA. He presented with increased dyspnea and phlegm production consistent with AECOPD. Likely triggered by medication non-compliance with inhalers due to housing insecurity. Initial labs notable for respiratory acidosis which improved with brief stint of BiPAP. He was treated with prednisone, azithromycin, breathing treatments, and home Trelegy equivalent. He returned to his home [address] [place]. Due to insurance concerns, the patient preferred transfer to outside facility which was accommodated. Upon discharge the patient's code was Full Code Physical Exam on the Date of Discharge: Vitals: 10/30/23 2147 BP: 108/56 Pulse: 79 Resp: 16 Temp: 97.5 F (36.4 C) SpO2: 96% Wt Readings from Last 1 Encounters: 10/29/23 63.9 kg (140 lb 14.4 oz) Gen: thin habitus, NAD, pleasant, conversational HEENT: sclerae anicteric, conjunctivae clear Pulm: NC in place, feint end expiratory wheeze, prolonged expiratory phase, otherwise non-focal CV: regular rate and rhythm, normal s1 and s2, no murmurs/rubs/gallops, no JVD Ext: warm and well perfused, no edema Neuro: A&Ox3, moving all 4 extremities At the time of discharge the patient's mental status was at baseline. Diet was DIET REGULAR Upon discharge the patient's code status full code. It has been my pleasure participating in this patient's care. Please contact me with any questions or concerns regarding his hospital stay. Sincerely, Zohaib Flynn MD, MS Internal Medicine-Pediatrics Resident, PGY1 [facility] Dictated under attending physician Loreto Walsh MD Division of Hospital Medicine p: [phone] f: [phone] CONSULTS DURING ADMISSION: IP CONSULT TO PHYSICAL THERAPY IP CONSULT TO OCCUPATIONAL THERAPY IP CONSULT TO RESPIRATORY THERAPY IP CONSULT TO SMOKING CESSATION IP CONSULT TO PULMONARY REHAB IMAGING / PROCEDURES / RESULTS: XR CHEST 1 VIEW PORTABLE Final Result IMPRESSION: I suspect the findings are related to a fibrotic process predominantly. No dense consolidation. Should you require further information or copies of results or reports please contact Medical Information Management @ [phone] LABS AT TIME OF DISCHARGE: Lab Results Component Value Date SODIUM 144 10/30/2023 SODIUM 139 11/27/2018 SODIUM 141.7 10/11/2017 POTASSIUM 4.0 10/30/2023 POTASSIUM 4.0 11/27/2018 POTASSIUM 3.65 10/11/2017 MAGNESIUM 2.0 10/30/2023 MAGNESIUM 1.9 11/27/2018 BUN 13 10/30/2023 BUN 17 11/27/2018 CREATSERUM 0.71 10/30/2023 CREATSERUM 0.82 11/27/2018 Lab Results Component Value Date WBC 6.36 10/30/2023 WBC 10.32 (H) 11/27/2018 HGB 13.4 10/30/2023 HGB 14.5 11/27/2018 PLATELET 183 10/30/2023 PLATELET 227 11/30/2018 Lab Results Component Value Date HGBA1C 5.4 10/02/2023 PATIENT'S MEDICAL HOME AT DISCHARGE: Ivonne Henry [address] [place] [id number] MEDICATIONS: Medication List for when you go home START taking these medications Morning Afternoon Evening Bedtime As Needed Azithromycin 250 MG TABS Take by mouth 2 tablets (500 mg) on Day 1, then 1 tablet (250 mg) daily on Days 2-5 Commonly known as: ZITHROMAX Last time this was given: 500 mg on October 30, 2023 9:23 AM Start taking on: October 31, 2023 predniSONE 20 MG TABS Take 2 tablets by mouth daily for 4 days. Commonly known as: DELTASONE Last time this was given: 40 mg on October 30, 2023 9:24 AM Start taking on: October 31, 2023 CONTINUE taking these medications Morning Afternoon Evening Bedtime As Needed Cyclobenzaprine 10 MG TABS Take 1 tablet by mouth 2 times daily as needed for Muscle spasms. Commonly known as: FLEXERIL Last time this was given: 10 mg on October 30, 2023 9:30 AM furOSEmide 20 MG TABS Take 1 tablet by mouth daily. Commonly known as: LASIX Last time this was given: 20 mg on October 30, 2023 9:23 AM Ipratropium-albuterol 0.5-2.5 (3) MG/3ML nebulizer solution Take 3 mL by nebulization every 6 hours as needed for Shortness of Breath. Commonly known as: DUONEB Last time this was given: 3 mL on October 30, 2023 8:19 PM * Lisinopril 20 MG TABS Take 1 tablet by mouth daily. Total 30 mg daily Commonly known as: PRINIVIL Last time this was given: Ask your nurse or doctor * Lisinopril 10 MG TABS Take 1 tablet by mouth daily. Commonly known as: PRINIVIL Last time this was given: Ask your nurse or doctor Loratadine 10 MG TABS Take 1 tablet by mouth Every morning as needed. Commonly known as: CLARITIN Last time this was given: 10 mg on October 30, 2023 9:24 AM Nystatin 914270 UNIT/ML oral suspension Swish and swallow 10 mL 4 times daily. Commonly known as: MYCOSTATIN omeprazole [address] capsule Take 1 capsule by mouth daily. Commonly known as: PRILOSEC Potassium chloride 20 MEQ tab ER tablet Take 1 tablet by mouth daily. Commonly known as: K-DUR Last time this was given: 20 mEq on October 30, 2023 9:23 AM prednisoLONE-Moxifloxacin 1-0.5 % SOLN Apply to eye. Tamsulosin HCl 0.4 MG CAPS Take 1 capsule by mouth daily. Commonly known as: FLOMAX Last time this was given: 0.4 mg on October 30, 2023 9:23 AM Trelegy Ellipta 100-62.5-25 MCG/ACT AEPB inhaler Inhale 1 puff daily. Generic drug: jqerrnxvkvb-iazcymrnz-Oknkzl Ventolin HFA 108 (90 Base) MCG/ACT AERS inhaler Inhale 1 puff by mouth every 6 hours as needed for wheezing. Generic drug: Albuterol * The same medication is listed twice. Please discuss with your provider. Follow-up: No follow-up provider specified. Upcoming Appointments (up to five)-Some appointments for Medical Center outpatient clinics or diagnostic testing locations are not displayed below Provider Department Dept Phone 02/02/2024 1:40 PM Ivonne Henry Primary Care - General Internal Medicine Outpatient Care [facility] Arrive at: Arrive to 3rd Floor Registration Desk [phone] Associated attestation - Loreto Walsh MD - 10/31/2023 11:25 AM EDT Please see attestation on dc summary from 10/30. Pt did not discharge on 10/29 [facility] Plan of care note* Plan of Care - Austin Castro RN - 10/31/2023 10:14 AM EDT Problem: Adult Inpatient Plan of Care Goal: Readiness for Transition of Care Outcome: Not Progressing Problem: Adult Inpatient Plan of Care Goal: Plan of Care Review Outcome: Progressing Flowsheets (Taken 10/31/2023 1014) Progress: no change Plan of Care Reviewed With: patient [facility]05-25-[facility] Nurse Note* Nursing Notes - Austin Castro RN - 10/31/2023 7:19 AM EDT Provided report to Jaylin (Transfer Nurse) RN [phone]. The patient will be transferred to [facility] to Medical Surgical Orthopedic Unit (Room 3001). Faxed over PREM and AVS to [phone] [facility]05-25-[facility] Plan of care note* Plan of Care - Betty Wellington RN - 10/31/2023 2:28 AM EDT Problem: Adult Inpatient Plan of Care Goal: Plan of Care Review Outcome: Progressing Goal: Patient-Specific Goal (Individualized) Outcome: Progressing Goal: Absence of Hospital-Acquired Illness or Injury Outcome: Progressing Goal: Optimal Comfort and Wellbeing Outcome: Progressing Goal: Readiness for Transition of Care Outcome: Progressing Problem: PT - General Goals Goal: Supine <-> Sit Transfers - Patient will perform supine to/from sit transfers with independence and without use of hospital bed features in order to improve functional mobility and safety. Outcome: Progressing Goal: Sit <-> Stand Transfers - Patient will perform sit to/from stand transfers with independence and without an assistive device in order to improve functional mobility and safety. Outcome: Progressing Goal: Standing Endurance/Balance - Patient will perform standing balance tasks for 8 min with modified independence and least restrictive device while maintaining an RPE of less than 6/10 to improve endurance and safety with standing tasks. Outcome: Progressing Goal: Ambulation - Patient will ambulate 150 feet with modified independence and least restrictive device to improve ability to safely navigate home and community. Outcome: Progressing Goal: Curb Step - Patient will ascend/descend curb step with modified independence and without an assistive device to improve ability to safely navigate home and community. Outcome: Progressing Problem: OT - ADLs Goal: Lower Body Dressing - Patient will complete lower body dressing tasks with modified independence using adaptive equipment/compensatory strategies as needed for improved ability to complete self-care activities. Outcome: Progressing Goal: Toileting - Patient will complete toileting task with modified independence and adaptive equipment as needed for improved ability to safely complete self-care activities. Outcome: Progressing Goal: Bathing - Patient will perform full body bathing routine with modified independence while seated for improved ability to complete self-care activities Outcome: Progressing Problem: OT - Other Goal: Energy Conservation with ADL's - Patient will independently utilize at least 2 energy conservation/pacing strategies during ADL completion to promote success and safety during daily routine. Outcome: Progressing [facility]05-25-[facility] Nurse Note* Nursing Notes - Lawrence Pérez RN - 10/31/2023 12:10 AM EDT Patient reports having 6/10 intermittent midsternal chest pain that is exacerbated with coughing. Obtained vital signs and administered prn Tylenol and Flexiril. Notified on-call [facility] Med 3 Physician (Dr. Flynn). No new orders at this time. RAY Hernández (on-coming RN) also made aware. [facility]05-24-20[facility] Nurse Note* Nursing Notes - Lawrence Pérez RN - 10/30/2023 11:00 PM EDT Received discharge order from covering physician. Called medical transportation to set up. Providedreport and transport tentatively scheduled for 0800. Charge nurse made aware. Spoke with RAY Mosqueda (charge nurse) at [facility] Med-Surg Ortho Unit to make aware of pending transport time. Confirmed with RAY Mosqueda that patient will be admitted to [facility] Med-Surg Ortho room 3001. [facility]05-24-20[facility] Nurse Note* Nursing Notes - Austin Castro RN - 10/30/2023 7:35 PM EDT Bonnie (Transfer Nurse) RN from [facility] reported the patient's room is now available. The patient will be transferred to [facility] to Medical Surgical Orthopedic Unit (Room 3001). This nurse provided report. Bonnie BELL requested two face sheets to be sent with the patient and face sheets, AVS, PREM, and any imaging to be faxed to [phone]. This worker informed Lawrence BELL (ER) of this information. [facility]05-24-2024 Hospital Discharge instructions* Discharge Instructions* Broderick Tejada MD - 10/30/2023 4:43 PM EDT It was a pleasure taking care of you! You were seen for shortness of breath and cough. You were treated for a COPD exacerbation before transferring to outside hospital. Here are your post-hospitalization discharge instructions, Prednisone 40 mg daily x5 days, consider prolonged taper if still significantly symptomatic Azithromycin 500 x 3 days Home Trelegy or equivalent PRN breathing treatments Broderick Tejada MD * Attachments The following attachments cannot be sent through Care Everywhere. * COPD: Exacerbation (Algerian) [facility] History of Present illness Narrative* Jen Burr, OFFSHORE WIND TURBINE TECHNICIAN - 10/30/2023 2:48 PM EDT Psychosocial Assessment Per chart review, patient is a 63 year old male admitted for COPD exacerbation. Fitter Hand met with patient to introduce self, explain social work role during the inpatient stay and answer patient questions. Patient was alert and oriented x 4 and agreeable to social work visit. Information Source Information Source Information Source: patient , review of medical record Information Source Name: Wolf Turcios Considerations for the Medical Team: Limited support network Limited income-on SSDI Linked with a SW though [employer]. Employment Financial Employed?: Disabled Employment/Financial Concerns: no Employment/Financial Comments: Pt has limited income but is ustilizing community resources for basic needs. Source Of Income: disability Financial Concerns: other (see comments) (Limited financial income but is able to provide for needssuch as food, cell-phone and transportation through [employer].) Financial Resource Strain: Financial Resource Strain: Medium Risk (10/30/2023) Overall Financial Resource Strain (CARDIA) Difficulty of Paying Living Expenses: Somewhat hard Pt has SSDI and is linked with [employer]. Housing Stability: Housing Stability: Unknown (10/30/2023) Housing Stability Vital Sign Unable to Pay for Housing in the Last Year: Not on file Number of Places Lived in the Last Year: Not on file Unstable Housing in the Last Year: No Pt is residing with a friend on their floor. Pt reporte dno concerns at the friend home as they allow him to have his dog. Pt reported he is working with SW with [employer] who has assisted in completing housing applications for independent housing. Food Insecurity: Food Insecurity: No Food Insecurity (10/30/2023) Hunger Vital Sign Worried About Running Out of Food in the Last Year: Never true Ran Out of Food in the Last Year: Never true Pt uses Meals on Wheels. Senior options to assist with linking the pt with food stamps. Transportation Needs: Transportation Needs: No Transportation Needs (10/26/2023) [facility] Lack of Transportation (Medical): No Lack of Transportation (Non-Medical): No Cab service through [employer]. Utilities: Social Determinants of Health Utilities: Not At Risk (10/26/2023) Received from [facility] Utilities Threatened with loss of utilities: No N/A Abuse Screen Abuse Screen Do You Feel Unsafe at Home, Work or School?: no Cultural, Spiritual, Evangelical Practices Cultural or alevism practices that may impact discharge planning and/or medical care?: No Coping and Stress Concerns Patient Coping/Stress Concerns Patient Coping/Stress Concerns: No Patient Personal Strengths: able to adapt, expressive of needs, resilient, strong support system Sources Of Support: other (see comments) (Friends) Reaction To Health Status: accepting, adjusting Understanding Of Condition And Treatment: adequate understanding of medical condition, adequate understanding of treatment SW met with pt at bedside and introduced self, role and reason for visiting. Pt reported he was doing good but wanted to know if he was being transferred to [facility]. SW updated pt that CM is working on the transfer but [facility] has not confirmed they have an open bed. SW updated pt that [facility] within pt insurance network and can assist in getting the pt oxygen. Basic Needs: Pt resides with a friend. No safety concerns. Pt reported he is on SSDI with limited income. No financial concerns as pt is receiving housing, food and transportation assistance from [employer]. Medical: Pt needs oxygen. Requesting transfer to [facility] due to pt insurance not being in network with [facility]. CLAUDIO Intervention(s) and Recommendation(s): SW provided verbal support and emotional support. Pt reported he misses his dog. SW will continue to follow for discharge planning and care coordination. Jen HUERTAS Lagging Machine Operator Available through secure chat * Lauren Rasheed RN - 10/30/2023 12:11 PM EDT Transition Planning Met with patient to discuss his insurance is out of network. He stated he prefers to transfer to a hospital who is in network with his insurance. Called [facility] transfer center [phone] and they are looking for a bed. Ambulance form completed and is at [facility] desk. Messaged [facility] to see if they accept patient's insurance. They do. [facility] [address] [place] [address] Addendum: 4:17 pm called [facility]. Spoke with Accepted to Jorge Luis. Dr. Davila. Accepting.RN station number provided. They will call when they have a bed available. Then can call [facility] [phone] to request an ambulance. Will continue to follow for discharge planning and care coordination. Lina March RN, MSSA, SUGGESTION CLERK-S, ACM-SW R 9 E Clinical Construction Trades Contractor * Lauren Rasheed RN - 10/30/2023 10:43 AM EDT Discharge Planning Patient Assessment Admission Assessment Patient Assessment Completed: Initial Anticipated discharge disposition: Home Reason for Admission: COPD exacerbation Is the patient able to participate in the assessment?: Yes Information source: Patient, Review of Medical Record Information Source Name/Contact: Wolf Turcios [phone] Demographics Verified and Updated: Yes Has the patient been admitted to any hospital in the last 30 days?: No Advanced Care Planning Has the patient completed Advance Directives?: Not Completed Referral to Social Work for Advance Care Planning? : Patient Declines Legal Next of Kin Does the patient have a Guardian?: No Spouse: No Adult Child(cecily), List All Adult Children: Yes Name and Contact information: Day Turcios [phone] Would you like to add additional adult children?: Yes Name and Contact information: Tonia Turcios Referral to Social Work to Identify Legal Next of Kin?: No Reviewed and Updated in Demographics? : Yes Outpatient Providers Does patient have a primary care physician? : Yes When was the patient's last PCP visit?: > 30 days Does the patient follow any specialists?: Yes Reviewed and updated Care Team?: Yes Patient Care Team: Ivonne Henry MD as PCP - General (Internal Medicine) Environment/Caregivers Is the patient from a facility or chcf?: No Patient lives with: Friend(s) Living Environment: House How many steps does the patient have to navigate to enter or inside the home? : 1 Does the patient have a first floor set-up with bed and bathroom?: No (Patient sleeps on the floor with a mattress.) Patient Caregiving Responsibilities: Self Patient-identified caregiver/support network: Friends Who does the patient identify as a teachable caregiver(s)?: None Services Does the patient use a home health or hospice agency?: No Current with dialysis?: No Does the patient use any community programs or services?: No Does patient use DME? : none Does the patient use oxygen?: Yes Portable tank?: No Does patient use medical supplies? : none Anticipated Changes Related to Illness/Injury? : No Initial ADLs Prior to Arrival What is the patient's baseline physical functioning prior to this acute illness?: independent What is the patient's baseline cognitive functioning prior to this acute illness?: independent Is the patient's baseline functioning changed by this acute illness? : No Concerns with patient being able to care for themselves at home? : No Are there therapy or specialists consults?: Yes Select consult type: Social Work Does the patient's home require any home modifications for discharge? : No CM to recommend therapy or other consults? : No Medication Management Does the patient have prescription insurance coverage? : Yes Is the patient on Anticoagulation? : No [facility] [address], [address] [place] [address] Joint Supervisor Does the patient or insurance verification representative express financial concerns? : Yes Financial concern type: Housing Referrals to address financial concerns: Social Work Employed?: Disabled Coping/Stress Concerns about patient s coping and stress?: No Concerns about patient s caregiver s coping and stress?: No Identified Caregiver Values and Beliefs Cultural or alevism practices that may impact discharge planning and/or medical care?: No Initial Discharge Planning Anticipated discharge disposition: Home Transportation Available for Discharge: Cab Anticipated DME: none Anticipated Services at Discharge: Outpatient follow up Patient Assessment Completed: Initial Expected Discharge Date: to be determined Discharge Planning Summary Patient is staying with friends. He stated he is sleeping on the floor in the front room. He stated he has a concentrator at home but can not use it because it has black mold. He stated he call the DME co.to try to get it fixed but he needed to pay over $100 for it first. Care Management Plan Anticipate patient will be able to transition to home with follow up. Calling Medical Services co. [phone] To see if they are the providers. . Confirmed he owes a balance of about $100. He will need to make payment arrangements or shown that he has always Medicaid before they will deliver. He a walk of life and new oxygen orders. But it transferred over to funeral director/embalmer/owner so they are no longer billing his insurance so patient may select a new provider. Will continue to follow for discharge planning and care coordination. Lina March RN, [facility], SUGGESTION CLERK-S, ACM-SW R 9 E Clinical Construction Trades Contractor * Broderick Tejada MD - 10/30/2023 9:01 AM EDT Internal Medicine Daily Progress Note Patient: Wolf Turcios, 1960, [id number] Physician: Broderick Tejada MD, PGY1, Pager #[phone], Gen Med 3 service Subjective/Interval History: Transferred to the floor overnight. No acute events. Slept with BiPAP (does not use this at home). Feels mildly improved today. Reports incomplete compliance with inhalers at home secondary to socialsituations. Objective: Temp: [97 F (36.1 C)-98.6 F (37 C)] 98.2 F (36.8 C) Pulse (Heart Rate): [85-109] 97 Resp Rate: [18-35] 18 BP: (106-161)/(63-84) 138/68 O2 Sat (%): [91 %-99 %] 97 % Weight: [63.9 kg (140 lb 14.4 oz)] 63.9 kg (140 lb 14.4 oz) O2 Device: nasal cannula (10/30/23 0832) Flow (L/min): 0 (10/29/23 2225) Gen: Thin but in no acute distress. Resp: mildly increased work of breathing. Poor air entry bilaterally. No wheezing or crackles. Tenderness to palpation of left lateral chest wall Cardio: normal rate, regular rhythm, no murmurs GI: mildly tender diffusely without rebound or guarding Skin: warm and dry Body mass index is 18.09 kg/m . Data Review: WBC/Hgb/Hct/Plts: 6.36/13.4/42.2/183 (10/29 0317) Na/K+/Phos/Mg/Ca: 144/4.0/2.7/2.0/-- (10/29 316) Bun/Creat/Cl/CO2/Glucose: 13/0.71/103/34/128 (10/29 316) Assessment/Plan: Wolf Turcios is a 63 y.o. male with a history of COPD, HTN, and TIA who presents with COPD exacerbation. Acute on chronic obstructive pulmonary disease On Trelegy Ellipta at home, but non-compliant. He has also not been using his nebulizer for the last month due to recently moving. On 2L home oxygen. He was admitted from 10/24-10/25 for COPD exacerbation. He was discharged with 4 days of 40 mg prednisone, duonebs, and amoxicillin. Suspect current exacerbation is secondary to medication noncompliance, also consider viral infection . - Breztri BID in place of home Trelegy Ellipta - Duonebs q6h - Albuterol PRN - Supplemental oxygen to maintain sats > 88%, currently on home 2L NC - Incentive spirometry and positive expiratory pressure - Prednisone 40mg burst x 5 days (took a dose this morning). Can consider prolonged taper if not improving - Antibiotics: azithromycin 500 mg for 3 days - Consult to pulmonary rehab HTN - Continue lisinopril 30 mg daily - Continue lasix 20 mg daily - Continue KCl supplementation Pulmonary nodules CT lung cancer screening completed outpatient 10/12/2023 with multiple pulmonary nodules, subpleural nodule in the RUL. Per radiology report there felt to be benign based on location and characteristics. - Repeat CT scan recommended in 6 months Chronic back pain - Continue home flexeril PRN Opioid use disorder History of cocaine abuse, in remission. Sober for 8 years. - Monitor PUD Per history with remote H. pylori infection as well as perforated gastric ulcer - Continue pantoprazole 40 mg daily BPH - Continue flomax Tobacco use Discontinued smoking 5 days ago. - Nicotine patch PRN - Consult to smoking cessation DVT prophylaxis with lovenox Disposition: apparently patient's insurance is not accepted by [facility]. Case management is working on transfer to in-network hospital. Code status is full Broderick Tejada MD [facility] Anesthesiology, PGY-1 10/30/2023 9:01 AM Pager #[phone] Associated attestation - Loreto Walsh MD - 10/30/2023 1:43 PM EDT I saw and evaluated the patient independently on 10/30/23. I discussed the plan of care with the residents. I have personally reviewed all available clinical data related to today's encounter, including but not limited to laboratory studies, radiology images and reports. I have reviewed the resident note and agree with the findings and plan of care as documented. Briefly, Wolf Turcios is a 63 y.o. male with a PMH significant for HTN, TIA, and COPD on 2 L home oxygen who is here with c/f COPD exacerbation requiring BIPAP support for hypercapnia and respiratory acidosis which is now improving. O2 via NC has remained at his baseline requirements. Feels better this morning except for some more thick green-aida sputum production. No increase work of breathing on exam, no audible wheezing on chest auscultation. Plan to continue duonebs and prednisone 40mg x 5 days, may require a longer steroid taper if not improving clinically. Monitor repeat VBG to determine need for continued BIPAP support. RT, pulm rehab and IP smoking cessation consult. 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/compliance with scheduled home Trelegy Ellipta at discharge Loreto Walsh MD Hospital Medicine Pager: #[phone] * [facility] - 10/30/2023 8:31 AM EDT Acute Physical Therapy Evaluation Prior Gross Functional Mobility: independent Current AM-PAC score(s): CURRENT AM-PAC Mobility Raw Score: 18 Based on the above AM-PAC score(s) and PT clinical judgment, patient is a good candidate for discharge to [facility] (Hopeful progression to home) Barriers to discharge home: Patient needs assistance with functional mobility, Patient needs assistance with IADLs (see note below), Lack of supervision necessary to mitigate fall risk Mobility equipment available at home: none used, oxygen (3-5L at baseline) ADL equipment available at home: none Equipment needed for discharge: to be determined Current therapy frequency recommendation in acute: Therapy Frequency: 5 times a week Activity Recommendations for outside of rehab session: x1 person for ambulation within room Precautions and Weightbearing Status: Existing Precautions/Restrictions: fall, supplemental oxygen No critical lines at this time Patient Safety Communication Prior to Visit: Nursing Subjective: Pt supine with HOB elevated upon entry. Pt reported 5/10 pain in L side/abdomen and agreeable to therapy. Pain: General Pain Documentation (Adult, OB, Peds) Presence of Pain: reports pain/discomfort Pain Location: abdomen, rib cage, leg, left DVPRS (Defense and Veterans Pain Rating Scale) DVPRS: Rest: 5- moderate pain DVPRS: Activity: 5- moderate pain Home Setting Residence: House (friends house) Lives With: friend(s) First floor setup: bedroom, tub shower, grab bars Number of stairs to enter home: 1 Mobility Equipment Available: none used, oxygen (3-5L at baseline) ADL Equipment Available: none Previous Level of Function Gross Functional Mobility: independent Assistive Device: none used Prior level ADL Overview: Independent with all ADLs Dominant Hand: Ambidextrous Bed Mobility: independent Transfers: independent Stairs: independent, increased time Ambulation: modified independent with home, decreased distance (SOB; pt is homebound due to O2 onlyat house) Prior Level of Function Details: no falls Objective/Observation: Vitals/Vitals Responses to Treatment: Pt's SpO2 fluctuated between 89-96% during ambulation and increased to 92% following ambulation. Pt with increased work of breathing. RN notified and aware. O2 Device: nasal cannula Flow (L/min): 3 Cognition Overall Cognitive Status: Within Functional Limits (at risk) Arousal/Alertness: Appropriate responses to stimuli Orientation Level: Oriented X4 Following Commands: Follows all commands and directions without difficulty Safety Judgment: Decreased awareness of need for assistance, Decreased awareness of need for safety Awareness of Errors: Assistance required to identify errors made, Assistance required to correct errors made Deficits: Decreased awareness of deficits Vision Screen Currently wearing corrective lenses: No Visual Impairments Observed?: No Speech Speech: no gross deficits noted Hearing Hearing: no gross deficits noted Extremity Assessments: RLE Assessment RLE Assessment: Within Functional Limits LLE Assessment LLE Assessment: Within Functional Limits Sensation Overall Sensation: Impaired Sensation Comments: Pt reports n/t in L LE Proprioception Proprioception: intact Mobility Assessment: Rolling/Turning Mobility Warren Level: Rolling/Turning: not tested Scooting Bridging Mobility Warren Level: Scooting/Bridging: not tested Supine to Sit Mobility Warren Level: Supine->Sit: supervision Bed Features/Set-up: Supine->Sit: Head of bed elevated, Use of bed rail Skilled Rationale: Positioning, Sequencing, Hand placement, Verbal cues, Full extension to upright positioning/posture, Upright gaze/neck extension, Technique of activity, Cues for increased safety Skilled Intervention/Details: Supine->Sit: x1 EOB. Pt demonstrated increased time and effort without overt LOB. Pt utilized bed rail with B UEs for support during transfer. Cueing given for hand placement, technique, and positioning on EOB. Sit to Supine Mobility Warren Level: Sit->Supine: not tested Balance: Sitting Balance Static Sitting-Level of Assistance: Independent Dynamic Sitting-Level of Assistance: Modified independent Sitting Balance Skilled Intervention/Details: On EOB. No overt LOB. Standing Balance Static Standing-Level of Assistance: Stand-by assist Dynamic Standing-Level of Assistance: Contact guard Standing-Balance Support: Gait belt Skilled Rationale: Positioning, Verbal cues, Facilitate anterior shift, Full extension to upright positioning/posture, Upright gaze/neck extension, Technique of activity, Cues for increased safety Standing Balance Skilled Intervention/Details: Pt demonstrated flexed posturing and narrow base of support without overt LOB. Pt utilized stable objects and railings intermittently with UEs for support. Cueing given for upright posture, LE positioning, and safety. Transfer Assessment: Sit to Stand Transfer Warren Level: Sit->Stand: contact guard assist Assistive Device: Sit->Stand: gait belt Skilled Rationale: Positioning, Verbal cues, Facilitate anterior shift, Full extension to upright positioning/posture, Upright gaze/neck extension, Technique of activity, Cues for increased safety Skilled Intervention/Details: Sit->Stand: x1 from EOB. No overt LOB. Cueing given for technique,upright posture, and safety. Stand to Sit Transfer Warren Level: Stand->Sit: contact guard assist Assistive Device: Stand->Sit: gait belt, armed chair Skilled Rationale: Positioning, Sequencing, Hand placement, Verbal cues, Controlled descent for sitting, Technique of activity, Cues for increased safety Skilled Intervention/Details: Stand->Sit: x1 to chair. No overt LOB. Cueing given for eccentric control on descent, hand placement, and placing legs against chair before sitting. Bed-Chair Transfer Warren Level: Bed<->Chair: not tested Gait/Functional Mobility: Gait Assessment Warren Level: Gait: contact guard assist Assistive Device: Gait: gait belt Ambulation Distance (Feet): 80 (40+40) Gait Deviations Identified: decreased tracy, decreased gait speed, decreased heel strike, decreased step length, decreased stride length, flexed posture, narrow base of support Gait Skilled Rationale: verbal, upright posture, increase step length, increase step width, improvefoot placement, increase foot clearance Skilled Intervention/Details - Gait: Pt ambulated 40 feet into hallway with one standing rest breaktaken before walking 40 feet back to room. Pt utilized UEs on stable objects and wall railings for support and stated he did not need a walker or cane after device education given to pt by PT. Pt also demonstrated slow but steady gait, with decreased step length and foot clearance. Cueing given for upright posture and improvement of foot placement with poor carryover. Pt with increased work of breathing following ambulation and reported 7/10 fatigue level. Wheelchair Assessment Patient currently uses wheelchair?: No Stairs: Stairs Assessment Warren Level: Stair Negotiation: not tested Outcome Score(s): CURRENT [facility] Basic Mobility Inpatient Short Form Turning over in bed: 4 - No Assistance Moving from lying on back to sittin - A Little Assistance Moving to and from bed to chair: 3 - A Little Assistance Sitting/standing from chair: 3 - A Little Assistance Walk in hospital room: 3 - A Little Assistance Climbing 3-5 steps with a railin - A Lot of Assistance CURRENT [facility] Mobility Raw Score: 18 CURRENT [facility] Mobility Functional Limitation: 46.58% Impaired in Basic Mobility Interventions: Intervention 1 Intervention Name: Pt educated on assistive device benefits with transfers and ambulation. Pt understood but stated he did not need one. Assessment & Plan: Patient was admitted for dyspnea and seen for therapy evaluation related to functional mobility, including tranfers, standing tolerance, and gait. Exam findings include impairments in: Strength, Pain, Posture, Transfers, Gait/Locomotion, Aerobic capacity/endurance. 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 Current clinical presentation is Evolving - changing/inconsistent clinical characteristics (Moderate). Patient history factors impacting Plan Of Care include COPD, HTN, and TIA. Patient will benefit from skilled physical therapy to address these impairments, functional limitations, and participation restrictions and has good rehab potential to achieve therapy goals. Planned Therapy Interventions: balance training, endurance, functional activity tolerance, gait training, postural re-education, strengthening Patient Instruction/Education this session: Learners: Patient Education provided: Activity outside of therapy, Bed mobility, Discharge recommendations, Functional transfers, Gait belt use, Gait training safety, Plan of care, Role of this discipline, Safety Teaching method: Verbal Education/Instruction Learner response: States/Identifies/Teaches back Learning preferences: Auditory Learning considerations: No barriers/ready to learn Plan for next session: Progress transfers, balance, and gait endurance/quality Acute PT Goals Plan of Care by Nancy De Leon PT at 10/30/2023 8:31 AM Version 1 of 1 Problem: PT - General Goals Goal: Supine <-> Sit Transfers - Patient will perform supine to/from sit transfers with independence and without use of hospital bed features in order to improve functional mobility and safety. Outcome: Ongoing Goal: Sit <-> Stand Transfers - Patient will perform sit to/from stand transfers with independence and without an assistive device in order to improve functional mobility and safety. Outcome: Ongoing Goal: Standing Endurance/Balance - Patient will perform standing balance tasks for 8 min with modified independence and least restrictive device while maintaining an RPE of less than 6/10 to improve endurance and safety with standing tasks. Outcome: Ongoing Goal: Ambulation - Patient will ambulate 150 feet with modified independence and least restrictive device to improve ability to safely navigate home and community. Outcome: Ongoing Goal: Curb Step - Patient will ascend/descend curb step with modified independence and without an assistive device to improve ability to safely navigate home and community. Outcome: Ongoing PT treatment consisted of the following to progress towards the above goal(s): PT Evaluation and Treatment Time PT Evaluation (Moderate) Time Entry: 17 Evaluating Therapist: Karen Barrera Additional Details: PT Co-Eval/Treatment Information Co-evaluation/co-treatment performed?: Yes, simultaneous billable skilled care was necessary due tomedical complexity and functional deficits Other discipline: OT Rationale for need to co-eval/treat: postural control Evaluation Complexity Components History: Moderate (1-2 personal factors and/or comorbidities) Body Systems Review: Moderate (Addressing a total of 3 or more elements) Clinical Presentation: Evolving - changing/inconsistent clinical characteristics (Moderate) Clinical Decision Making: Moderate Time In: 830 Time Out: 08 Total Visit Time: 17 minutes Total Treatment Time (skilled, billable minutes): 17 minutes PPE used during patient interaction: facemask, gloves Patient location at end of session: chair, RN aware Alarms on at end of session: none altered, RN aware Needs in reach. Upon discontinuation of Acute Care Physical Therapy Services or patient discharge from the hospitalthis note represents the current Physical Therapy Discharge Summary. Associated attestation - Nancy De Leon PT - 10/30/2023 11:47 AM EDT I, Nancy De Leon PT, provided direct guidance in the room during this patient care session. I attest that all documentation reflects accurate skilled clinical decisions and judgements. Nancy De Leon PT License # [id number] Pager [phone] * Alyce Barahona OT - 10/30/2023 8:31 AM EDT Acute Occupational Therapy Evaluation Prior Gross Functional Mobility: independent Current AM-PAC score(s): CURRENT AM-PAC Activity Raw Score: 20 Based on the above AM-PAC score(s) and OT clinical judgment, discharge destination recommendation is: [facility] (with hopeful progression) Barriers to discharge home: Patient needs assistance with functional mobility, Patient needs assistance with ADLs, Patient needs assistance with IADLs (see note below) Mobility equipment available at home: none used, oxygen (3-5L at baseline) ADL equipment available at home: none Equipment recommendations for discharge: shower chair, 2 wheeled walker Current therapy frequency recommendation(s) in acute: 5 times a week Activity Recommendations for outside of rehab session: x1 person for ambulation within room Precautions and Weightbearing Status: OT Existing Precautions/Restrictions: fall, supplemental oxygen No critical lines at this time Patient Safety Communication Prior to Visit: Nursing Subjective: Pt asks how many stories is the house Pt states I dont have any stories to tell you and then laughs Pain: General Pain Documentation (Adult, OB, Peds) Presence of Pain: reports pain/discomfort Pain Location: leg, right, rib cage DVPRS (Defense and Veterans Pain Rating Scale) DVPRS: Rest: 6- moderate pain DVPRS: Activity: 6- moderate pain Home Setting Residence: House (friends house) Lives With: friend(s) First floor setup: bedroom, tub shower, grab bars Number of stairs to enter home: 1 Mobility Equipment Available: none used, oxygen (3-5L at baseline) ADL Equipment Available: none Previous Level of Function Gross Functional Mobility: independent Assistive Device: none used Prior level ADL Overview: Independent with all ADLs Dominant Hand: Ambidextrous Bed Mobility: independent Transfers: independent Stairs: independent, increased time Ambulation: modified independent with home, decreased distance (SOB; pt is homebound due to O2 onlyat house) Prior Level of Function Details: no falls IADL History IADLs: independent Objective/Observation: Vitals/Vitals Responses to Treatment: Vital signs monitored in room throughout session, with walking pt SOB and satting 86% with increased time to recover O2 Device: nasal cannula Vision Screen Currently wearing corrective lenses: No Visual Impairments Observed?: No Speech Speech: no gross deficits noted Successful Methods (Communication Strategies): verbal speech Hearing Hearing: no gross deficits noted Cognition Overall Cognitive Status: Within Functional Limits Arousal/Alertness: Appropriate responses to stimuli Orientation Level: Oriented X4 Following Commands: Follows all commands and directions without difficulty Safety Judgment: Good awareness of safety precautions Awareness of Errors: Good awareness of errors made Deficits: Fully aware of deficits Attention Span: Appears intact Memory: Appears intact Problem Solving: Able to problem solve independently ADLs: Eating Assistance: Independent Grooming Assistance: Contact guard assist Grooming Location: standing at sink Bathing Assistance: Minimal UE Dressing Assistance: Modified independent LE Dressing Assistance: Minimal Toilet Assistance: Minimal Extremity Assessments: RUE Assessment RUE Assessment: Within Functional Limits LUE Assessment LUE Assessment: Within Functional Limits Balance: Sitting Balance Static Sitting-Level of Assistance: Independent Dynamic Sitting-Level of Assistance: Modified independent Sitting Balance Skilled Intervention/Details: no lob Standing Balance Static Standing-Level of Assistance: Stand-by assist Dynamic Standing-Level of Assistance: Contact guard Standing-Balance Support: Gait belt Skilled Rationale: Positioning, Sequencing, Hand placement, Verbal cues, Tactile cues Standing Balance Skilled Intervention/Details: SOB and needing standing rest break Neuro: Sensation Overall Sensation: Impaired Light Touch: Diminished, Right, Lower extremity Skin and Edema: Mobility Assessment: Supine to Sit Mobility Warren Level: Supine->Sit: supervision Bed Features/Set-up: Supine->Sit: Head of bed elevated, Use of bed rail Skilled Rationale: Positioning, Sequencing, Hand placement, Verbal cues, Tactile cues Transfer Assessment: Sit to Stand Transfer Warren Level: Sit->Stand: contact guard assist Assistive Device: Sit->Stand: gait belt Skilled Rationale: Positioning, Sequencing, Hand placement, Verbal cues, Tactile cues, Cues for increased safety, Energy conservation, Breathing strategies Stand to Sit Transfer Warren Level: Stand->Sit: contact guard assist Assistive Device: Stand->Sit: gait belt Skilled Rationale: Positioning, Sequencing, Hand placement, Verbal cues, Tactile cues, Energy conservation, Cues for increased safety, Breathing strategies Functional Mobility: Functional Mobility Warren Level: Functional Mobility/Gait: contact guard assist Assistive Device: Functional Mobility/Gait: gait belt Functional Mobility Distance: Distance needed to access restroom Functional Mobility Deficits: Activity tolerance, Shortness of breath, Follow safety/precautions Outcome Score(s): CURRENT [facility] Daily Activity Inpatient Short Form Putting on/Taking Off Lower Body Clothin - A Little Assistance Bathin - A Little Assistance Toiletin - A Little Assistance Putting on/Taking Off Upper Body Clothin - No Assistance Groomin - A Little Assistance Eatin - No Assistance CURRENT [facility] Activity Raw Score: 20 CURRENT -[facility] Activity Functional Limitation/Modifier: 38.32% Currently Impaired in Daily Activity- CJ Interventions: Assessment & Plan: Patient was admitted for COPD exacerbation [J44.1] and seen for therapy evaluation related to ability to tolerate ADL at home . Exam findings include impairments in: aerobic capacity, balance, endurance, transfers, strength. These impairments contribute to occupational performance limitations including bathing, dressing, grooming, toileting, functional mobility, ADL transfers, home management tasks. The following factors impact the plan of care: Past Medical History: Diagnosis Date Cocaine use inhaled crack cocaine COPD (chronic obstructive pulmonary disease) Essential hypertension 01/10/2017 Sciatica TIA (transient ischemic attack) 01/2017 Tobacco use Past Surgical History: Procedure Laterality Date LAPAROTOMY EXPLORATORY N/A 10/12/2017 Laterality: N/A; Surgeon: Jihan Olivarez MD; Location: [facility] MAIN OR FINGER SURGERY 2007 SKIN GRAFT Patient will benefit from skilled occupational therapy to address these impairments, occupational performance limitations, and participation restrictions. Patient's rehab potential is: good. Planned Therapy Interventions (OT Eval): ADL retraining, IADL retraining, balance training, functional activity tolerance, transfer training Patient Instruction/Education this session: Learners: Patient Education provided: Activity outside of therapy, Discharge recommendations Teaching method: Verbal Education/Instruction Learner response: Applies knowledge Learning preferences: Auditory Learning considerations: No barriers/ready to learn Plan for next session: standing adl tolerance Acute OT Goals Plan of Care by Alyce Barahona OT at 10/30/2023 8:31 AM Version 1 of 1 Problem: OT - ADLs Goal: Lower Body Dressing - Patient will complete lower body dressing tasks with modified independence using adaptive equipment/compensatory strategies as needed for improved ability to complete self-care activities. Outcome: Ongoing Goal: Toileting - Patient will complete toileting task with modified independence and adaptive equipment as needed for improved ability to safely complete self-care activities. Outcome: Ongoing Goal: Bathing - Patient will perform full body bathing routine with modified independence while seated for improved ability to complete self-care activities Outcome: Ongoing Problem: OT - Endurance Goal: Endurance Functional Mobility - Patient will complete distance needed for limited community mobility with no rest breaks for improved tolerance to safely complete I/ADL's Outcome: Ongoing Goal: Endurance Functional Task Standing - Patient will engage in standing functional task for 8+ minutes with modified independence to improve activity tolerance necessary for safe ADL completion atrecommended discharge destination. Outcome: Ongoing Problem: OT - Other Goal: Energy Conservation with ADL's - Patient will independently utilize at least 2 energy conservation/pacing strategies during ADL completion to promote success and safety during daily routine. Outcome: Ongoing OT treatment consisted of the following to work and progress towards the above goal(s): OT Evaluation and Treatment Time OT Evaluation (Moderate) Time Entry: 17 Evaluating Therapist: Alyce Barahona OT Additional Details: OT Co-Eval/Treatment Information Co-evaluation/co-treatment performed?: Yes, simultaneous billable skilled care was necessary due tomedical complexity and functional deficits Other discipline: PT OT Evaluation Complexity Occupational Profile and Client History: Moderate - expanded history Assessment of Occupational Performance: Moderate (3-5 performance deficits) Clinical Decision/Performance Deficits: Moderate (detailed assessments w/several treatment options) Time In: 830 Time Out: 847 Total Visit Time: 17 minutes Total Treatment Time (skilled, billable minutes): 17 minutes PPE used during patient interaction: facemask, gloves Patient location at end of session: chair Alarms on at end of session: RN aware Needs in reach. Upon discontinuation of Acute Care Occupational Therapy Services or patient discharge from the hospital this note represents the current Occupational Therapy Discharge Summary. [facility] of care note* Plan of Care - Lucy Hoyt RCP - 10/30/2023 9:12 AM EDT Wolf Turcios is a 63 y.o. male with a past medical history of: Past Medical History: Diagnosis Date Cocaine use inhaled crack cocaine COPD (chronic obstructive pulmonary disease) Essential hypertension 01/10/2017 Sciatica TIA (transient ischemic attack) 01/2017 Tobacco use Past Surgical History: Procedure Laterality Date LAPAROTOMY EXPLORATORY N/A 10/12/2017 Laterality: N/A; Surgeon: Jihan Olivarez MD; Location: [facility] MAIN OR FINGER SURGERY 2007 SKIN GRAFT Social History Tobacco Use Smoking status: Every Day Current packs/day: 0.25 Types: Cigarettes Smokeless tobacco: Never Tobacco comments: 50+ pack year history Substance Use Topics Alcohol use: Not Currently Full Code No active isolations Recent Vitals: Blood pressure 138/68, pulse 97, temperature 98.2 F (36.8 C), temperature source Oral, resp. rate 18, height 1.88 m (6' 2), weight 63.9 kg (140 lb 14.4 oz), SpO2 97%. Recent ABG/VBG: Home Medications: Prior to Admission Medications Prescriptions Last Dose Informant Patient Reported? Taking? ClearLax 17 GM/SCOOP Powder powder Yes No Cyclobenzaprine 10 MG tablet 10/29/2023 No Yes Sig: Take 1 tablet by mouth 2 times daily as needed for Muscle spasms. Gabapentin 300 MG capsule Yes No Sig: Take 1 capsule by mouth 3 times daily as needed for Other (pain). R Ipratropium-albuterol 0.5-2.5 (3) MG/3ML nebulizer solution More than a month Yes No Sig: Take 3 mL by nebulization every 6 hours as needed for Shortness of Breath. Lisinopril 10 MG tablet 10/29/2023 Yes Yes Sig: Take 1 tablet by mouth daily. Lisinopril 20 MG tablet 10/29/2023 Yes Yes Sig: Take 1 tablet by mouth daily. Total 30 mg daily Loratadine 10 MG tablet 10/29/2023 No Yes Sig: Take 1 tablet by mouth Every morning as needed. Nystatin [id number] UNIT/ML oral suspension 10/29/2023 Yes Yes Sig: Swish and swallow 10 mL 4 times daily. Potassium chloride 20 MEQ Tab CR tablet 10/29/2023 Yes Yes Sig: Take 1 tablet by mouth daily. Tamsulosin HCl 0.4 MG capsule 10/29/2023 Yes Yes Sig: Take 1 capsule by mouth daily. Trelegy Ellipta 100-62.5-25 MCG/ACT Aerosol Powder, breath activated inhaler Past Month No Yes Sig: Inhale 1 puff daily. albuterol 108 (90 Base) MCG/ACT Aero Soln inhaler 10/29/2023 No Yes Sig: Inhale 1 puff by mouth every 6 hours as needed for wheezing. docusate 100 MG capsule Yes No Sig: Take 1 capsule by mouth 2 times daily as needed for Constipation. furOSEmide 20 MG tablet 10/29/2023 Yes Yes Sig: Take 1 tablet by mouth daily. guaiFENesin 600 MG Tab SR 12 HR tablet SR No No Sig: Take 1 tablet by mouth 2 times daily as needed for Cold Symptoms or Cough. omeprazole [address] capsule 10/29/2023 Yes Yes Sig: Take 1 capsule by mouth daily. prednisoLONE-Moxifloxacin 1-0.5 % Solution Past Week Yes Yes Sig: Apply to eye. Facility-Administered Medications: None Breath Sounds: Diminished, wheezes expiratory Current Orders: Duoneb Q6 Breztri Rx Indication: COPD Respiratory Plan of Care: Continue to monitor patients work of breathing. Work on smoking cessation. Reassess tx in 24 hours. The patients respiratory plan of care was updated by Lucy Hoyt RCP 10/30/2023 9:13 AM [facility]05-24-2024 Plan of care note* Plan of Care - Nancy De Leon, PT - 10/30/2023 8:31 AM EDT Problem: PT - General Goals Goal: Supine <-> Sit Transfers - Patient will perform supine to/from sit transfers with independence and without use of hospital bed features in order to improve functional mobility and safety. Outcome: Ongoing Goal: Sit <-> Stand Transfers - Patient will perform sit to/from stand transfers with independence and without an assistive device in order to improve functional mobility and safety. Outcome: Ongoing Goal: Standing Endurance/Balance - Patient will perform standing balance tasks for 8 min with modified independence and least restrictive device while maintaining an RPE of less than 6/10 to improve endurance and safety with standing tasks. Outcome: Ongoing Goal: Ambulation - Patient will ambulate 150 feet with modified independence and least restrictive device to improve ability to safely navigate home and community. Outcome: Ongoing Goal: Curb Step - Patient will ascend/descend curb step with modified independence and without an assistive device to improve ability to safely navigate home and community. Outcome: Ongoing [facility]05-24-2024 Plan of care note* Plan of Care - Alyce Barahona OT - 10/30/2023 8:31 AM EDT Problem: OT - ADLs Goal: Lower Body Dressing - Patient will complete lower body dressing tasks with modified independence using adaptive equipment/compensatory strategies as needed for improved ability to complete self-care activities. Outcome: Ongoing Goal: Toileting - Patient will complete toileting task with modified independence and adaptive equipment as needed for improved ability to safely complete self-care activities. Outcome: Ongoing Goal: Bathing - Patient will perform full body bathing routine with modified independence while seated for improved ability to complete self-care activities Outcome: Ongoing Problem: OT - Endurance Goal: Endurance Functional Mobility - Patient will complete distance needed for limited community mobility with no rest breaks for improved tolerance to safely complete I/ADL's Outcome: Ongoing Goal: Endurance Functional Task Standing - Patient will engage in standing functional task for 8+ minutes with modified independence to improve activity tolerance necessary for safe ADL completion atrecommended discharge destination. Outcome: Ongoing Problem: OT - Other Goal: Energy Conservation with ADL's - Patient will independently utilize at least 2 energy conservation/pacing strategies during ADL completion to promote success and safety during daily routine. Outcome: Ongoing [facility]05-23-2024 Nurse Note* Nursing Notes - Ruth Calvert RN - 10/29/2023 10:30 PM EDT Pt arrived by cart from ED accompanied by RN. Updates given to this RN by RAY Sams from ED. Pt belongings at bedside, no reports of missing items. Pt appears SOB, but was able to ambulate to bed without issue. Pt main complaint was pain in L Rib area (treated in ED), and hunger/thirst. Pt was provided food from [employer], and admission was completed. On admission to [facility], from ED a dual RN initial assessment of skin condition was performed by Ruth Calvert RN and Jamal Diggs RN. Skin Assessment: Skin within defined limits:Yes Farooq Score: 21 LDA Added:No Ruth Calvert RN [facility]05-23-2024 History and physical note* Mirta Warren MD - 10/29/2023 8:21 PM EDT Images from the original note were not included. Internal Medicine Admission History & Physical Patient: Wolf Turcios, 1960, [id number] Physician: Mirta Warren MD, PGY1, Pager #[phone], [facility] service Date of face to face patient encounter: 10/29/2023. Chief Complaint: COPD exacerbation History Of Present Illness: Wolf Turcios is a 63 y.o. male with a history of COPD, HTN, and TIA who presents with dyspnea. Patient reports recent discharge from [facility] for similar presentation. He feels as if he has decompensated since returning home. He had more shortness of breath last night and difficulty falling asleep due to this. This made him feel anxious. He denies chest pain, but does have some tightness. He is coughing up white foamy phlegm, which is new since discharge. Has felt warm but no objective fevers. Has been taking home inhalers and prednisone without relief. He hasn't been able to use his nebulizer device. Denies LE pain, dysuria, abdominal pain, or diarrhea/constipation. He is tolerating PO. Hestopped smoking cigarettes 5 days ago. His allergies are acting up right now. In [facility] ED, he was hemodynamically stable, but requiring BiPAP for respiratory support. His VBG was originally notable for CO2 retention of 74 and pH 7.31. This improved with BiPAP and duoneb to pCO2 61 and pH 7.40. CXR with signs of fibrotic process. He was also given 1L of fluids. He was admitted to [facility] for further respiratory support. Medical/Surgical History: Past Medical History: Diagnosis Date Cocaine use inhaled crack cocaine COPD (chronic obstructive pulmonary disease) Essential hypertension 01/10/2017 Sciatica TIA (transient ischemic attack) 01/2017 Tobacco use Past Surgical History: Procedure Laterality Date LAPAROTOMY EXPLORATORY N/A 10/12/2017 Laterality: N/A; Surgeon: Jihan Olivarez MD; Location: [facility] MAIN OR FINGER SURGERY 2007 SKIN GRAFT Social History: he reports that he has been smoking cigarettes. He has never used smokeless tobacco. He reports that he does not currently use alcohol. He reports that he does not currently use drugs. Frequency: 3.00 times per week. Family History: family history includes Alcoholism in his father; Stroke in his father; Uterine Cancer in his mother. Medications: Prior to Admission Medications Prescriptions ClearLax 17 GM/SCOOP Powder powder Cyclobenzaprine 10 MG tablet Sig: Take 1 tablet by mouth 2 times daily as needed for Muscle spasms. Gabapentin 300 MG capsule Sig: Take 1 capsule by mouth 3 times daily as needed for Other (pain). R Ipratropium-albuterol 0.5-2.5 (3) MG/3ML nebulizer solution Sig: Take 3 mL by nebulization every 6 hours as needed for Shortness of Breath. Lisinopril 10 MG tablet Sig: Take 1 tablet by mouth daily. Lisinopril 20 MG tablet Sig: Take 1 tablet by mouth daily. Total 30 mg daily Loratadine 10 MG tablet Sig: Take 1 tablet by mouth Every morning as needed. Nystatin [id number] UNIT/ML oral suspension Sig: Swish and swallow 10 mL 4 times daily. Potassium chloride 20 MEQ Tab CR tablet Sig: Take 1 tablet by mouth daily. Tamsulosin HCl 0.4 MG capsule Sig: Take 1 capsule by mouth daily. Trelegy Ellipta 100-62.5-25 MCG/ACT Aerosol Powder, breath activated inhaler Sig: Inhale 1 puff daily. albuterol 108 (90 Base) MCG/ACT Aero Soln inhaler Sig: Inhale 1 puff by mouth every 6 hours as needed for wheezing. docusate 100 MG capsule Sig: Take 1 capsule by mouth 2 times daily as needed for Constipation. furOSEmide 20 MG tablet Sig: Take 1 tablet by mouth daily. guaiFENesin 600 MG Tab SR 12 HR tablet SR Sig: Take 1 tablet by mouth 2 times daily as needed for Cold Symptoms or Cough. omeprazole [address] capsule Sig: Take 1 capsule by mouth daily. prednisoLONE-Moxifloxacin 1-0.5 % Solution Sig: Apply to eye. Facility-Administered Medications: None Allergies: Allergies Allergen Reactions Codeine Hives Review of Systems: Review of Systems Constitutional: Negative. HENT: Positive for congestion. Negative for ear discharge, ear pain, nosebleeds, rhinorrhea, sneezing and sore throat. Respiratory: Positive for cough, chest tightness and shortness of breath. Negative for apnea, choking and stridor. Cardiovascular: Negative. Gastrointestinal: Negative. Endocrine: Negative. Genitourinary: Negative. Musculoskeletal: Negative. Skin: Negative. Allergic/Immunologic: Negative. Neurological: Negative. Hematological: Negative. Psychiatric/Behavioral: Negative. Physical Exam: Vitals: 10/29/231933 BP: Pulse: 85 Resp: Temp: SpO2: 97% O2 Device: NIMV (10/29/231933) Flow (L/min): 2 (10/29/231809) Gen: Alert, Awake, NAD, sitting up in hospital bed eating a sandwich Eyes: PERRLA, EOMI, no icterus ENT: MMM, trachea midline Resp: CTA & P, diffuse crackles, slightly increased respiratory effort, on NC Cardio: RRR, normal S1, S2, no M/R/G. No TRIPP. GI: S/NT/ND, NABS MSK: No joint effusions or erythema Skin: No jaundice or rash Neuro: ultrasonic cleaner 3-7, 9-11 intact and equal. Strength grossly equal in muscle groups of the bilateral UEsand LEs. Psych: Ox3, appropriate affect and cognition Data Review: WBC/Hgb/Hct/Plts: 8.68/15.9/49.6/195 (10/28 1032) Na/K+/Phos/Mg/Ca: 136/4.2/--/--/-- (10/28 1032) Bun/Creat/Cl/CO2/Glucose: 13/0.82/99/34/106 (10/28 1032) Imaging: XR CHEST 1 VIEW PORTABLE Final Result IMPRESSION: I suspect the findings are related to a fibrotic process predominantly. No dense consolidation. Qtc 435, NSR with PVCs Impression/Plan: Wolf Turcios is a 63 y.o. male with a history of COPD, HTN, and TIA who presents with COPD exacerbation. Acute on chronic obstructive pulmonary disease On Trelegy Ellipta at home, but non-compliant. He has also not been using his nebulizer for the last month due to recently moving. On 2L home oxygen. He was admitted from 10/24-10/25 for COPD exacerbation. He was discharged with 4 days of 40 mg prednisone, duonebs, and amoxicillin. - Start Breztri BID in place of home Trelegy Ellipta - Duonebs q6h - Albuterol PRN - Supplemental oxygen to maintain sats > 88% - Incentive spirometry and positive expiratory pressure - Prednisone 40mg burst x 5 days (took a dose this morning) - Antibiotics: azithromycin 500 mg for 3 days HTN - Continue lisinopril 30 mg daily - Continue lasix 20 mg daily - Continue KCl supplementation Pulmonary nodules CT lung cancer screening completed outpatient 10/12/2023 with multiple pulmonary nodules, subpleural nodule in the RUL. Per radiology report there felt to be benign based on location and characteristics. - Repeat CT scan recommended in 6 months Chronic back pain - Continue home flexeril PRN Opioid use disorder History of cocaine abuse, in remission. Sober for 8 years. - Monitor PUD Per history with remote H. pylori infection as well as perforated gastric ulcer - Continue pantoprazole 40 mg daily BPH - Continue flomax Tobacco use Discontinued smoking 5 days ago. - Add nicotine patch PRN DVT prophylaxis with lovenox Disposition: Admit to [facility] 4 Code status is full Staffed with Gilbert Paul MD Signed, Mirta Warren MD PGY-1, Internal Medicine-Pediatrics [facility] Pager #[phone] Associated attestation - Gilbert Paul MD - 10/29/2023 11:39 PM EDT Attending Attestation: I saw and evaluated the patient independently. I have personally reviewed all available clinical data related to today's encounter. I discussed the plan of care with the resident, Dr. Mirta Warren. I have reviewed her note, made appropriate changes where applicable, and otherwise agree withthe findings and plan of care as documented. In short, Wolf Turcios is a 63 y.o. male with a PMH significant for HTN, TIA, and COPD on 2 L home oxygen who presented to the ED for evaluation of shortness of breath. He was recently discharged from [facility] followin admission for acute exacerbation of COPD. He returns to the ED tonight with a CC of shortness of breath, chest tightness, and cough with foamy sputum production. He feels anxious as a result of these symptoms. On questioning, he reports compliance with discharge medications including prednisone taper, however he was not taking his scheduled home inhalers or using his home nebulizer machine. Of note, he stopped smoking 5 days ago, likely contributing to increased sputum production. In the ED he was started on BiPAP due to respiratory acidosis in the ED with pH 7.31 and pCO2 74 onVBG. Physical exam is notable for non-toxic appearing male in no apparent distress. CXR with signs of fibrotic process. Full assessment and plan per resident note. Briefly, will admit for acute exacerbation of COPD withmanagement as follows: Duoneb scheduled Albuterol PRN Supplemental oxygen with goal SpO2 >88% Pred 40 x5 days Azithromycin 500 mg x3 days Pulmonary toilet 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/compliance with scheduled home Trelegy Ellipta at discharge Principal Problem: Chronic obstructive pulmonary disease with acute exacerbation Active Problems: PUD (peptic ulcer disease) BPH (benign prostatic hyperplasia) Essential hypertension History of substance use disorder History of TIA (transient ischemic attack) Date of service: 10/29/2023 Gilbert Paul MD [facility] Work Phone: [phone]) 730-957405-23-2024 History and physical note* Mirta Warren MD - 10/29/2023 8:21 PM EDT Images from the original note were not included. Internal Medicine Admission History & Physical Patient: Wolf Turcios, 1960, [id number] Physician: Mirta Warren MD, PGY1, Pager #[phone], [facility] service Date of face to face patient encounter: 10/29/2023. Chief Complaint: COPD exacerbation History Of Present Illness: Wolf Turcios is a 63 y.o. male with a history of COPD, HTN, and TIA who presents with dyspnea. Patient reports recent discharge from [facility] for similar presentation. He feels as if he has decompensated since returning home. He had more shortness of breath last night and difficulty falling asleep due to this. This made him feel anxious. He denies chest pain, but does have some tightness. He is coughing up white foamy phlegm, which is new since discharge. Has felt warm but no objective fevers. Has been taking home inhalers and prednisone without relief. He hasn't been able to use his nebulizer device. Denies LE pain, dysuria, abdominal pain, or diarrhea/constipation. He is tolerating PO. Hestopped smoking cigarettes 5 days ago. His allergies are acting up right now. In [facility] ED, he was hemodynamically stable, but requiring BiPAP for respiratory support. His VBG was originally notable for CO2 retention of 74 and pH 7.31. This improved with BiPAP and duoneb to pCO2 61 and pH 7.40. CXR with signs of fibrotic process. He was also given 1L of fluids. He was admitted to [facility] for further respiratory support. Medical/Surgical History: Past Medical History: Diagnosis Date Cocaine use inhaled crack cocaine COPD (chronic obstructive pulmonary disease) Essential hypertension 01/10/2017 Sciatica TIA (transient ischemic attack) 01/2017 Tobacco use Past Surgical History: Procedure Laterality Date LAPAROTOMY EXPLORATORY N/A 10/12/2017 Laterality: N/A; Surgeon: Jihan Olivarez MD; Location: [facility] MAIN OR FINGER SURGERY 2007 SKIN GRAFT Social History: he reports that he has been smoking cigarettes. He has never used smokeless tobacco. He reports that he does not currently use alcohol. He reports that he does not currently use drugs. Frequency: 3.00 times per week. Family History: family history includes Alcoholism in his father; Stroke in his father; Uterine Cancer in his mother. Medications: Prior to Admission Medications Prescriptions ClearLax 17 GM/SCOOP Powder powder Cyclobenzaprine 10 MG tablet Sig: Take 1 tablet by mouth 2 times daily as needed for Muscle spasms. Gabapentin 300 MG capsule Sig: Take 1 capsule by mouth 3 times daily as needed for Other (pain). R Ipratropium-albuterol 0.5-2.5 (3) MG/3ML nebulizer solution Sig: Take 3 mL by nebulization every 6 hours as needed for Shortness of Breath. Lisinopril 10 MG tablet Sig: Take 1 tablet by mouth daily. Lisinopril 20 MG tablet Sig: Take 1 tablet by mouth daily. Total 30 mg daily Loratadine 10 MG tablet Sig: Take 1 tablet by mouth Every morning as needed. Nystatin 760451 UNIT/ML oral suspension Sig: Swish and swallow 10 mL 4 times daily. Potassium chloride 20 MEQ Tab CR tablet Sig: Take 1 tablet by mouth daily. Tamsulosin HCl 0.4 MG capsule Sig: Take 1 capsule by mouth daily. Trelegy Ellipta 100-62.5-25 MCG/ACT Aerosol Powder, breath activated inhaler Sig: Inhale 1 puff daily. albuterol 108 (90 Base) MCG/ACT Aero Soln inhaler Sig: Inhale 1 puff by mouth every 6 hours as needed for wheezing. docusate 100 MG capsule Sig: Take 1 capsule by mouth 2 times daily as needed for Constipation. furOSEmide 20 MG tablet Sig: Take 1 tablet by mouth daily. guaiFENesin 600 MG Tab SR 12 HR tablet SR Sig: Take 1 tablet by mouth 2 times daily as needed for Cold Symptoms or Cough. omeprazole [address] capsule Sig: Take 1 capsule by mouth daily. prednisoLONE-Moxifloxacin 1-0.5 % Solution Sig: Apply to eye. Facility-Administered Medications: None Allergies: Allergies Allergen Reactions Codeine Hives Review of Systems: Review of Systems Constitutional: Negative. HENT: Positive for congestion. Negative for ear discharge, ear pain, nosebleeds, rhinorrhea, sneezing and sore throat. Respiratory: Positive for cough, chest tightness and shortness of breath. Negative for apnea, choking and stridor. Cardiovascular: Negative. Gastrointestinal: Negative. Endocrine: Negative. Genitourinary: Negative. Musculoskeletal: Negative. Skin: Negative. Allergic/Immunologic: Negative. Neurological: Negative. Hematological: Negative. Psychiatric/Behavioral: Negative. Physical Exam: Vitals: 10/29/231933 BP: Pulse: 85 Resp: Temp: SpO2: 97% O2 Device: NIMV (10/29/231933) Flow (L/min): 2 (10/29/231809) Gen: Alert, Awake, NAD, sitting up in hospital bed eating a sandwich Eyes: PERRLA, EOMI, no icterus ENT: MMM, trachea midline Resp: CTA & P, diffuse crackles, slightly increased respiratory effort, on NC Cardio: RRR, normal S1, S2, no M/R/G. No TRIPP. GI: S/NT/ND, NABS MSK: No joint effusions or erythema Skin: No jaundice or rash Neuro: ultrasonic cleaner 3-7, 9-11 intact and equal. Strength grossly equal in muscle groups of the bilateral UEsand LEs. Psych: Ox3, appropriate affect and cognition Data Review: WBC/Hgb/Hct/Plts: 8.68/15.9/49.6/195 (10/28 1032) Na/K+/Phos/Mg/Ca: 136/4.2/--/--/-- (10/28 1032) Bun/Creat/Cl/CO2/Glucose: 13/0.82/99/34/106 (10/28 1032) Imaging: XR CHEST 1 VIEW PORTABLE Final Result IMPRESSION: I suspect the findings are related to a fibrotic process predominantly. No dense consolidation. Qtc 435, NSR with PVCs Impression/Plan: Wolf Turcios is a 63 y.o. male with a history of COPD, HTN, and TIA who presents with COPD exacerbation. Acute on chronic obstructive pulmonary disease On Trelegy Ellipta at home, but non-compliant. He has also not been using his nebulizer for the last month due to recently moving. On 2L home oxygen. He was admitted from 10/24-10/25 for COPD exacerbation. He was discharged with 4 days of 40 mg prednisone, duonebs, and amoxicillin. - Start Breztri BID in place of home Trelegy Ellipta - Duonebs q6h - Albuterol PRN - Supplemental oxygen to maintain sats > 88% - Incentive spirometry and positive expiratory pressure - Prednisone 40mg burst x 5 days (took a dose this morning) - Antibiotics: azithromycin 500 mg for 3 days HTN - Continue lisinopril 30 mg daily - Continue lasix 20 mg daily - Continue KCl supplementation Pulmonary nodules CT lung cancer screening completed outpatient 10/12/2023 with multiple pulmonary nodules, subpleural nodule in the RUL. Per radiology report there felt to be benign based on location and characteristics. - Repeat CT scan recommended in 6 months Chronic back pain - Continue home flexeril PRN Opioid use disorder History of cocaine abuse, in remission. Sober for 8 years. - Monitor PUD Per history with remote H. pylori infection as well as perforated gastric ulcer - Continue pantoprazole 40 mg daily BPH - Continue flomax Tobacco use Discontinued smoking 5 days ago. - Add nicotine patch PRN DVT prophylaxis with lovenox Disposition: Admit to [facility] 4 Code status is full Staffed with Gilbert Paul MD Signed, Mirta Warren MD PGY-1, Internal Medicine-Pediatrics [facility] Pager #[phone] Associated attestation - Gilbert Paul MD - 10/29/2023 11:39 PM EDT Attending Attestation: I saw and evaluated the patient independently. I have personally reviewed all available clinical data related to today's encounter. I discussed the plan of care with the resident, Dr. Mirta Warren. I have reviewed her note, made appropriate changes where applicable, and otherwise agree withthe findings and plan of care as documented. In short, Wolf Turcios is a 63 y.o. male with a PMH significant for HTN, TIA, and COPD on 2 L home oxygen who presented to the ED for evaluation of shortness of breath. He was recently discharged from [facility] followin admission for acute exacerbation of COPD. He returns to the ED tonight with a CC of shortness of breath, chest tightness, and cough with foamy sputum production. He feels anxious as a result of these symptoms. On questioning, he reports compliance with discharge medications including prednisone taper, however he was not taking his scheduled home inhalers or using his home nebulizer machine. Of note, he stopped smoking 5 days ago, likely contributing to increased sputum production. In the ED he was started on BiPAP due to respiratory acidosis in the ED with pH 7.31 and pCO2 74 onVBG. Physical exam is notable for non-toxic appearing male in no apparent distress. CXR with signs of fibrotic process. Full assessment and plan per resident note. Briefly, will admit for acute exacerbation of COPD withmanagement as follows: Duoneb scheduled Albuterol PRN Supplemental oxygen with goal SpO2 >88% Pred 40 x5 days Azithromycin 500 mg x3 days Pulmonary toilet 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/compliance with scheduled home Trelegy Ellipta at discharge Principal Problem: Chronic obstructive pulmonary disease with acute exacerbation Active Problems: PUD (peptic ulcer disease) BPH (benign prostatic hyperplasia) Essential hypertension History of substance use disorder History of TIA (transient ischemic attack) Date of service: 10/29/2023 Gilbert Paul [facility]* Sharla Schulz RN - 10/29/2023 6:07 PM EDT Bed: E018 Expected date: Expected time: Means of arrival: Comments: 84 [facility]05-23-2024 Emergency department Note* Sharla Schulz RN - 10/29/2023 6:07 PM EDT Bed: E018 Expected date: Expected time: Means of arrival: Comments: 84 * Reji Al MD - 10/29/2023 4:13 PM EDT ED Attending Chief complaint: Chief Complaint Patient presents with Shortness of Breath Wolf Turcios is a 63 y.o. male Past Medical History: Diagnosis Date Cocaine use inhaled crack cocaine COPD (chronic obstructive pulmonary disease) Essential hypertension 01/10/2017 Sciatica TIA (transient ischemic attack) 01/2017 Tobacco use BP 112/81 (BP Location: Left arm, BP Position: Lying) Pulse 99 Temp 98.2 F (36.8 C) (Oral) Resp 24 Ht 1.829 m (6') SpO2 98% BMI 18.58 kg/m Smoking Status Every Day This patient's history and physical exam were performed by the resident. On 10/29/2023 I saw and examined the patient. I discussed the history and examination with the resident and agree with the plan of care. Medical Decision Making Amount and/or Complexity of Data Reviewed External Data Reviewed: notes. Labs: ordered. Details: BNP normal, pH 7.31 with pCO2 74 indicating acute on chronic respiratory acidosis, chemistry normal, troponin negative, CBC normal, Radiology: ordered. Risk Prescription drug management. Decision regarding hospitalization. Differential diagnosis includes but is not limited to the following, at least one of which represents a threat to life or bodily function: acute exacerbation of COPD, community acquredpneumonia PCP notes from September reviewed. Chem, cbc, trop, bnp ok Sx c/w COPD exacerbation - was in obs in [place] 10/24-10/26 for COPD exacerbation. Now worsening. [facility] obs notes reviewed by me. Decreased breath sounds at the bases. Steroids, nebs, check VBG Also has concern over the cleanliness of his home oxygen supply. Check cxr to rule out pneumonia Patient continued to have significantly decreased breath sounds bilaterally with increased work of breathing. Given his acute on chronic respiratory acidosis we will admit him for additional therapy for a severe COPD exacerbation. Reji Al MD 10/29/23 1835 * Elijah Kennedy MD - 10/29/2023 4:03 PM EDT EMERGENCY DEPARTMENT CHIEF COMPLAINT Shortness of Breath HPI Wolf Turcios is a 63 y.o. male with PMHx of COPD, HTN, TIA who presents with dyspnea. Patient reports recent discharge from [facility] for similar presentation. Feels as if he has decompensated since returning home. More short of breath last night, difficulty falling asleep due to this. No chest pain but does have some tightness. Coughing up white phlegm which is new since discharge. Has felt warm but not objective fevers. Has been taking home inhalers and prednisone without relief. No LE pain or swallowing, tolerating PO, no GI or complaints. REVIEW OF SYSTEMS Review of systems including constitutional, skin, HEENT, eyes, CV, respiratory, GI, , MSK, endocrine, neurologic, psychiatric, heme reviewed and negative except as noted above. PAST MEDICAL HISTORY Past Medical History: Diagnosis Date Cocaine use inhaled crack cocaine COPD (chronic obstructive pulmonary disease) Essential hypertension 01/10/2017 Sciatica TIA (transient ischemic attack) 01/2017 Tobacco use SURGICAL HISTORY Past Surgical History: Procedure Laterality Date LAPAROTOMY EXPLORATORY N/A 10/12/2017 Laterality: N/A; Surgeon: Jihan Olivarez MD; Location: [facility] MAIN OR FINGER SURGERY 2007 SKIN GRAFT CURRENT MEDICATIONS No current facility-administered medications for this encounter. Current Outpatient Medications Medication Sig Dispense Refill albuterol 108 (90 Base) MCG/ACT Aero Soln inhaler Inhale 1 puff by mouth every 6 hours as needed for wheezing. 18 g 0 ClearLax 17 GM/SCOOP Powder powder Cyclobenzaprine 10 MG tablet Take 1 tablet by mouth 2 times daily as needed for Muscle spasms. 60 tablet 3 docusate 100 MG capsule Take 1 capsule by mouth 2 times daily as needed for Constipation. furOSEmide 20 MG tablet Take 1 tablet by mouth daily. Gabapentin 300 MG capsule Take 1 capsule by mouth 3 times daily as needed for Other (pain). R guaiFENesin 600 MG Tab SR 12 HR tablet SR Take 1 tablet by mouth 2 times daily as needed for Cold Symptoms or Cough. 60 tablet 11 Ipratropium-albuterol 0.5-2.5 (3) MG/3ML nebulizer solution Take 3 mL by nebulization every 6 hoursas needed for Shortness of Breath. Lisinopril 10 MG tablet Take 1 tablet by mouth daily. Lisinopril 20 MG tablet Take 1 tablet by mouth daily. Total 30 mg daily Loratadine 10 MG tablet Take 1 tablet by mouth Every morning as needed. 90 tablet 3 Nystatin 300405 UNIT/ML oral suspension Swish and swallow 10 mL 4 times daily. omeprazole [address] capsule Take 1 capsule by mouth daily. Potassium chloride 20 MEQ Tab CR tablet Take 1 tablet by mouth daily. prednisoLONE-Moxifloxacin 1-0.5 % Solution Apply to eye. Tamsulosin HCl 0.4 MG capsule Take 1 capsule by mouth daily. Trelegy Ellipta 100-62.5-25 MCG/ACT Aerosol Powder, breath activated inhaler Inhale 1 puff daily. 60 Each 6 ALLERGIES Allergies Allergen Reactions Codeedgar Lofton FAMILY HISTORY Family History Problem Relation Age of Onset Uterine Cancer Mother Stroke Father HEMORRHAGIC Alcoholism Father SOCIAL HISTORY Social History Socioeconomic History Marital status: Single Spouse name: Not on file Number of children: Not on file Years of education: Not on file Highest education level: Not on file Occupational History Occupation: unemployed Tobacco Use Smoking status: Every Day Current packs/day: 0.25 Types: Cigarettes Smokeless tobacco: Never Tobacco comments: 50+ pack year history Substance and Sexual Activity Alcohol use: Not Currently Drug use: Not Currently Frequency: 3.0 times per week Comment: last use 05/22/19 Sexual activity: Not on file Other Topics Concern Not on file Social History Narrative Homeless for last 2-3 years. 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 Precontemplative regarding quitting tobacco/cocaine. Social Determinants of Health Financial Resource Strain: Not on file Food Insecurity: No Food Insecurity (10/26/2023) Received from [facility] Hunger Vital Sign Worried About Running Out of Food in the Last Year: Never true Ran Out of Food in the Last Year: Never true Transportation Needs: No Transportation Needs (10/26/2023) Received from [facility] PRAPARE - Transportation Lack of Transportation (Medical): No Lack of Transportation (Non-Medical): No Physical Activity: Not on file Stress: Not on file Social Connections: Not on file Intimate Partner Violence: Not At Risk (10/26/2023) Received from [facility] Humiliation, Afraid, Rape, and Kick questionnaire Fear of Current or Ex-Partner: No Emotionally Abused: No Physically Abused: No Sexually Abused: No Housing Stability: Low Risk (10/26/2023) Received from [facility] Housing Stability Vital Sign Unable to Pay for Housing in the Last Year: No Number of Places Lived in the Last Year: 1 Unstable Housing in the Last Year: No PHYSICAL EXAM BP 112/81 (BP Location: Left arm, BP Position: Lying) Pulse 99 Temp 98.2 F (36.8 C) (Oral) Resp 24 Ht 1.829 m (6') SpO2 98% BMI 18.58 kg/m Smoking Status Every Day Physical Exam Constitutional: oriented to person, place, and time. Appears chronically ill Head: Normocephalic and atraumatic. Right Ear: External ear normal. Left Ear: External ear normal. Oropharynx clear with moist mucous membranes. Eyes: Conjunctivae and EOM are normal. Pupils are equal, round, and reactive to light. Right eye exhibits no discharge. Left eye exhibits no discharge. Neck: Normal range of motion. Neck supple. No tracheal deviation present. Cardiovascular: Normal rate, regular rhythm, normal heart sounds and intact distal pulses. Pulmonary/Chest: Increased work of breathing, diminished breath sounds at the bases with wheezes atthe bilateral apices Abdominal: Soft. Bowel sounds are normal. No distension. There is no tenderness. There is no rebound and no guarding. Musculoskeletal: Normal range of motion. No lower extremity edema. Radial pulse 2+ bilat. Neurological: Alert and oriented to person, place, and time. Strength 5/5 and sensation intact in all extremities. Normal gait. Skin: Skin is warm and dry. Capillary refill takes less than 2 seconds. No rash noted. Psychiatric: Normal mood and affect. Behavior is normal. Judgment and thought content normal. Nursing note and vitals reviewed. Assessment and Plan: Wolf Turcios is a 63 y.o. male who presents with dyspnea. Differential diagnosis includes but not limited to: COPD exacerbation, Respiratory acidosis, PNA, PTX, ACS Medical Decision Making Patient is hemodynamically stable and normothermic on presentation. Patient with increased respiratory drive with diminished breath sounds and wheezing. Patient's initial VBG is 7.31 with a PCO2 in the 80s. Gave Duoneb and intermittent BiPAP with improvement in VBG and symptoms. Patient took prednisone today, with changes in sputum will plan for Azithromycin, no other evidence of PNA on CXR. Willplan for admission given respiratory needs. Amount and/or Complexity of Data Reviewed Labs: ordered. Decision-making details documented in ED Course. Radiology: ordered. Decision-making details documented in ED Course. Risk Prescription drug management. Decision regarding hospitalization. Disposition: Admission This patient was discussed with the attending physician who was in the immediate care area during the evaluation and decision making process. This note dictated using [employer] voice recognition software. Attempts at proofreading were made, but errors may occasionally still occur. Elijah Kennedy MD Resident 10/29/232002 * Maral Curiel RN - 10/29/2023 10:26 AM EDT Pt arrives via EMS from home for SOB, hx COPD. Pt received duoneb en route, reported improvement insx. Pt uses oxygen prn at home, SpO2 90-91% on RA in triage, reports baseline is 95-96% [facility] Emergency department Note* Reji Al MD - 10/29/2023 4:13 PM EDT ED Attending Chief complaint: Chief Complaint Patient presents with Shortness of Breath Wolf Turcios is a 63 y.o. male Past Medical History: Diagnosis Date Cocaine use inhaled crack cocaine COPD (chronic obstructive pulmonary disease) Essential hypertension 01/10/2017 Sciatica TIA (transient ischemic attack) 01/2017 Tobacco use BP 112/81 (BP Location: Left arm, BP Position: Lying) Pulse 99 Temp 98.2 F (36.8 C) (Oral) Resp 24 Ht 1.829 m (6') SpO2 98% BMI 18.58 kg/m Smoking Status Every Day This patient's history and physical exam were performed by the resident. On 10/29/2023 I saw and examined the patient. I discussed the history and examination with the resident and agree with the plan of care. Medical Decision Making Amount and/or Complexity of Data Reviewed External Data Reviewed: notes. Labs: ordered. Details: BNP normal, pH 7.31 with pCO2 74 indicating acute on chronic respiratory acidosis, chemistry normal, troponin negative, CBC normal, Radiology: ordered. Risk Prescription drug management. Decision regarding hospitalization. Differential diagnosis includes but is not limited to the following, at least one of which represents a threat to life or bodily function: acute exacerbation of COPD, community acquredpneumonia PCP notes from September reviewed. Chem, cbc, trop, bnp ok Sx c/w COPD exacerbation - was in obs in [place] 10/24-10/26 for COPD exacerbation. Now worsening. [facility] obs notes reviewed by me. Decreased breath sounds at the bases. Steroids, nebs, check VBG Also has concern over the cleanliness of his home oxygen supply. Check cxr to rule out pneumonia Patient continued to have significantly decreased breath sounds bilaterally with increased work of breathing. Given his acute on chronic respiratory acidosis we will admit him for additional therapy for a severe COPD exacerbation. Reji Al MD 10/29/23 2909 [facility] Work Phone: 1(751) 605-965205-23-2024 Physician Emergency department Note* Elijah Kennedy MD - 10/29/2023 4:03 PM EDT EMERGENCY DEPARTMENT CHIEF COMPLAINT Shortness of Breath HPI Wolf Turcios is a 63 y.o. male with PMHx of COPD, HTN, TIA who presents with dyspnea. Patient reports recent discharge from [facility] for similar presentation. Feels as if he has decompensated since returning home. More short of breath last night, difficulty falling asleep due to this. No chest pain but does have some tightness. Coughing up white phlegm which is new since discharge. Has felt warm but not objective fevers. Has been taking home inhalers and prednisone without relief. No LE pain or swallowing, tolerating PO, no GI or complaints. REVIEW OF SYSTEMS Review of systems including constitutional, skin, HEENT, eyes, CV, respiratory, GI, , MSK, endocrine, neurologic, psychiatric, heme reviewed and negative except as noted above. PAST MEDICAL HISTORY Past Medical History: Diagnosis Date Cocaine use inhaled crack cocaine COPD (chronic obstructive pulmonary disease) Essential hypertension 01/10/2017 Sciatica TIA (transient ischemic attack) 01/2017 Tobacco use SURGICAL HISTORY Past Surgical History: Procedure Laterality Date LAPAROTOMY EXPLORATORY N/A 10/12/2017 Laterality: N/A; Surgeon: Jihan Olivarez MD; Location: [facility] MAIN OR FINGER SURGERY 2007 SKIN GRAFT CURRENT MEDICATIONS No current facility-administered medications for this encounter. Current Outpatient Medications Medication Sig Dispense Refill albuterol 108 (90 Base) MCG/ACT Aero Soln inhaler Inhale 1 puff by mouth every 6 hours as needed for wheezing. 18 g 0 ClearLax 17 GM/SCOOP Powder powder Cyclobenzaprine 10 MG tablet Take 1 tablet by mouth 2 times daily as needed for Muscle spasms. 60 tablet 3 docusate 100 MG capsule Take 1 capsule by mouth 2 times daily as needed for Constipation. furOSEmide 20 MG tablet Take 1 tablet by mouth daily. Gabapentin 300 MG capsule Take 1 capsule by mouth 3 times daily as needed for Other (pain). R guaiFENesin 600 MG Tab SR 12 HR tablet SR Take 1 tablet by mouth 2 times daily as needed for Cold Symptoms or Cough. 60 tablet 11 Ipratropium-albuterol 0.5-2.5 (3) MG/3ML nebulizer solution Take 3 mL by nebulization every 6 hoursas needed for Shortness of Breath. Lisinopril 10 MG tablet Take 1 tablet by mouth daily. Lisinopril 20 MG tablet Take 1 tablet by mouth daily. Total 30 mg daily Loratadine 10 MG tablet Take 1 tablet by mouth Every morning as needed. 90 tablet 3 Nystatin 875887 UNIT/ML oral suspension Swish and swallow 10 mL 4 times daily. omeprazole [address] capsule Take 1 capsule by mouth daily. Potassium chloride 20 MEQ Tab CR tablet Take 1 tablet by mouth daily. prednisoLONE-Moxifloxacin 1-0.5 % Solution Apply to eye. Tamsulosin HCl 0.4 MG capsule Take 1 capsule by mouth daily. Trelegy Ellipta 100-62.5-25 MCG/ACT Aerosol Powder, breath activated inhaler Inhale 1 puff daily. 60 Each 6 ALLERGIES Allergies Allergen Reactions Ira Lofton FAMILY HISTORY Family History Problem Relation Age of Onset Uterine Cancer Mother Stroke Father HEMORRHAGIC Alcoholism Father SOCIAL HISTORY Social History Socioeconomic History Marital status: Single Spouse name: Not on file Number of children: Not on file Years of education: Not on file Highest education level: Not on file Occupational History Occupation: unemployed Tobacco Use Smoking status: Every Day Current packs/day: 0.25 Types: Cigarettes Smokeless tobacco: Never Tobacco comments: 50+ pack year history Substance and Sexual Activity Alcohol use: Not Currently Drug use: Not Currently Frequency: 3.0 times per week Comment: last use 05/22/19 Sexual activity: Not on file Other Topics Concern Not on file Social History Narrative Homeless for last 2-3 years. 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 Precontemplative regarding quitting tobacco/cocaine. Social Determinants of Health Financial Resource Strain: Not on file Food Insecurity: No Food Insecurity (10/26/2023) Received from [facility] Hunger Vital Sign Worried About Running Out of Food in the Last Year: Never true Ran Out of Food in the Last Year: Never true Transportation Needs: No Transportation Needs (10/26/2023) Received from [facility] PRAPARE - Transportation Lack of Transportation (Medical): No Lack of Transportation (Non-Medical): No Physical Activity: Not on file Stress: Not on file Social Connections: Not on file Intimate Partner Violence: Not At Risk (10/26/2023) Received from [facility] Humiliation, Afraid, Rape, and Kick questionnaire Fear of Current or Ex-Partner: No Emotionally Abused: No Physically Abused: No Sexually Abused: No Housing Stability: Low Risk (10/26/2023) Received from [facility] Housing Stability Vital Sign Unable to Pay for Housing in the Last Year: No Number of Places Lived in the Last Year: 1 Unstable Housing in the Last Year: No PHYSICAL EXAM BP 112/81 (BP Location: Left arm, BP Position: Lying) Pulse 99 Temp 98.2 F (36.8 C) (Oral) Resp 24 Ht 1.829 m (6') SpO2 98% BMI 18.58 kg/m Smoking Status Every Day Physical Exam Constitutional: oriented to person, place, and time. Appears chronically ill Head: Normocephalic and atraumatic. Right Ear: External ear normal. Left Ear: External ear normal. Oropharynx clear with moist mucous membranes. Eyes: Conjunctivae and EOM are normal. Pupils are equal, round, and reactive to light. Right eye exhibits no discharge. Left eye exhibits no discharge. Neck: Normal range of motion. Neck supple. No tracheal deviation present. Cardiovascular: Normal rate, regular rhythm, normal heart sounds and intact distal pulses. Pulmonary/Chest: Increased work of breathing, diminished breath sounds at the bases with wheezes atthe bilateral apices Abdominal: Soft. Bowel sounds are normal. No distension. There is no tenderness. There is no rebound and no guarding. Musculoskeletal: Normal range of motion. No lower extremity edema. Radial pulse 2+ bilat. Neurological: Alert and oriented to person, place, and time. Strength 5/5 and sensation intact in all extremities. Normal gait. Skin: Skin is warm and dry. Capillary refill takes less than 2 seconds. No rash noted. Psychiatric: Normal mood and affect. Behavior is normal. Judgment and thought content normal. Nursing note and vitals reviewed. Assessment and Plan: Wolf Turcios is a 63 y.o. male who presents with dyspnea. Differential diagnosis includes but not limited to: COPD exacerbation, Respiratory acidosis, PNA, PTX, ACS Medical Decision Making Patient is hemodynamically stable and normothermic on presentation. Patient with increased respiratory drive with diminished breath sounds and wheezing. Patient's initial VBG is 7.31 with a PCO2 in the 80s. Gave Duoneb and intermittent BiPAP with improvement in VBG and symptoms. Patient took prednisone today, with changes in sputum will plan for Azithromycin, no other evidence of PNA on CXR. Willplan for admission given respiratory needs. Amount and/or Complexity of Data Reviewed Labs: ordered. Decision-making details documented in ED Course. Radiology: ordered. Decision-making details documented in ED Course. Risk Prescription drug management. Decision regarding hospitalization. Disposition: Admission This patient was discussed with the attending physician who was in the immediate care area during the evaluation and decision making process. This note dictated using [employer] voice recognition software. Attempts at proofreading were made, but errors may occasionally still occur. Elijah Kennedy MD Resident 10/29/232002 [facility] Work Phone: 1(197) 314-382005-23-2024 NoteAcute Coronary Syndrome (ACS): Initial Evaluation and Management: [email or web address] [facility]05-23-2024 Emergency department Note* Maral Curiel RN - 10/29/2023 10:26 AM EDT Pt arrives via EMS from home for SOB, hx COPD. Pt received duoneb en route, reported improvement insx. Pt uses oxygen prn at home, SpO2 90-91% on RA in triage, reports baseline is 95-96% [facility]05-22-2024 Telephone encounter Note* Telephone Encounter - Amber Damon LPN - 10/28/2023 9:23 AM EDT Submitted PA using [employer] insurance card of file, PA came back as not needed. Called pt, he stated he has [employer] insurance, I did ask for his insurance info (PCN, BIN, GRP) in order to complete new PA. Pt requested I call back to get requested info. [facility]05-22-2024 Miscellaneous Notes* Telephone Encounter - Amber Damon LPN - 10/28/2023 9:23 AM EDT Submitted PA using [employer] insurance card of file, PA came back as not needed. Called pt, he stated he has [employer] insurance, I did ask for his insurance info (PCN, BIN, GRP) in order to complete new PA. Pt requested I call back to get requested info. * Telephone Encounter - Bekah Lopez - 10/28/2023 8:08 AM EDT Patient called in and wanted to check status of Prior Auth * Telephone Encounter - France Mckeon - 10/22/2023 9:45 AM EDT Pt says he is out of this med now. RX Prior Authorization Requested Name of person calling: Wolf Turcios Pharmacy Name: - [facility] Who prescribed the medication requiring PA: - Ivonne Henry MD Name of medication requiring PA: - Chary Morenota 100-62.5-25 MCG/ACT Aerosol Powder, breath activated inhaler Dosage: -Sig - Route: Inhale 1 puff daily. - Inhalation Quantity: -60 Reason for the PA (step therapy, quantity exceeds amount allowed, need to use covered alternative, not covered): pt not sure he say it needs a PA Prescription Insurance Name: - [employer]achel[employer] Insurance phone number: - n/a Any alternative medications covered on plan? (this is for covered alternative or not covered): -n/a If patient is calling: What other medications have they tried/failed: n/a [facility] encounter Note* Telephone Encounter - Bekah Lopez - 10/28/2023 8:08 AM EDT Patient called in and wanted to check status of Prior Auth [facility]05-21-2024 History of Present illness Narrative* Alfreda Wall RN - 10/27/2023 2:15 PM EDT Care Management Progress Note Date: 10/27/2023 Time: 2:42 PM Patient Name: Wolf Turcios Date of : 1960 Called [facility] & advised new order for Home Nebulizer. They stated patient has a past balance due. They are not able to process any new Rx for him. Met with patient @ bedside. Asked patient if he would take Rx Home Nebulizer to pharmacy & obtain home nebulizer & supplies. Patient agreeable. Updated Rx Home Nebulizer & supplies & provided it to patient. Asked patient to remove O2. Patient O2 sat 90-92% on RA. Patient does not require portable oxygen @this time. Called bedside RN & advised discharge planning completed. Patient is medically ready for hospital discharge. Discharge Plan: D/C Disposition: Home Reason for Choice: Patient/Family preference Discharging Transportation Plan: Transportation Type: Cab Discharge Plan Status: Today Assessment and Background Information: * Josephine Jacobs CNP - 10/27/2023 10:00 AM EDT Josephine Jacobs CNP [facility] Hospitalists Progress Note Patient Name: Wolf Turcios PCP: Ivonne Henry MD Perpetual Assessment: Wolf Turcios is a 63 y.o. male who presented from home on 10/25/2023 with several days of increasing shortness of breath, cough with sputum production and found to have AECOPD. Assessment and Plan AECOPD Chronic hypoxic respiratory failure Pulmonary cachexia - Presented with increased work of breathing, cough with sputum, and minimal air movement on exam. - Chronic 2 L nasal cannula as needed at home. Currently utilizing 0-3L PRN - CXR nonacute; no leukocytosis, afebrile - Home regimen: Trelegy, as needed DuoNebs and albuterol - PCP has recommended OP referral to Pulm rehab - Continue on prednisone, Duonebs. Continue antibiotic-- already on amoxicillin for periodontitis. Continue home Trelegy - Repeat CXR 10/25 unremarkable - Add PEP therapy, PRN Robitussin for cough, PRN PO lidocaine for throat discomfort - F2F for nebulizer completed Essential hypertension - Continue lisinopril, Lasix with hold parameters Pulmonary nodules - CT lung cancer screening completed outpatient 10/12/2023 with multiple pulmonary nodules, subpleural nodule in the RUL. Per radiology report there felt to be benign based on location and characteristics. repeat CT scan was recommended in 6 months Chronic back pain - Per history. Continue home as needed Flexeril and gabapentin Opioid use disorder History of cocaine abuse, in remission - Remote, patient reports sobriety over the last 8 years PUD - Per history with remote H. pylori infection as well as perforated gastric ulcer - Continue PPI BPH - On flomax Tobacco use - Current smoker Code Status: FULL DVT Prophylaxis: Not Indicated, Patient Ambulating Expected Date of Discharge: TBD, potentially 10/26 afternoon if improved with med additions as above Discharge Planning: CM for nebulizer supplies and discharge planning. Continue supportive care History Chief Complaint/Reason for follow up: SOB HPI and ROS: Patient seen and examined this morning. He states he isn't doing well as he was up allnight with productive cough last night. States throat feels raw from coughing. He reports he doesn't know what usually helps with cough. No chest pain, no fevers or chills. Reviewed events from yesterday. Patient originally supposed to discharge around 10 AM, however caseelsie was working out details with his home nebulizer. Received a message from nursing staff that patient was back on oxygen around 4PM. Did ask another provider to go evaluate him and repeat chest x-ray and physical exam was unremarkable. Gven hx, would be hesitant to use hycodan or codeine for cough. Physical Examination Temp: [97.4 F (36.3 C)-98.4 F (36.9 C)] 98.4 F (36.9 C) Heart Rate: [86-109] 89 Resp: [14-18] 14 BP: (109-138)/(68-86) 136/86 GENERAL: Awake, not in distress, very thin, appears older than stated age, chronically ill CV: Regular rate and rhythm, no murmurs. RESP: Diminished throughout bilaterally, decreased air movement, no active wheezing/rhonchi. Intermittent cough. Does not appear in distress on room air GI: Soft, non-tender. NEURO: Alert, Ox3. Answers questions appropriately, moves extremities x 4 in bed Reviewed 10/27/23 10:00 AM: [x] Laboratory [x] Radiology [] Cardiology [x] Medications [x] Transcriptions [] Microbiology [x] Outside Records [] Family * Alfreda Wall RN - 10/26/2023 2:15 PM EDT Noted DME provider [facility] for Home O2. Updated AVS for patient to call [facility] for nebulizer equipment. Patient advised he independently obtained home nebulizer. He is in need of a New Nebulizer. OrderedHome Nebulizer. * Josephine Jacobs CNP - 10/26/2023 10:00 AM EDT Josephine Jacobs CNP [facility] Hospitalists Progress Note Patient Name: Wolf Turcios PCP: Ivonne Henry MD Perpetual Assessment: Wolf Turcios is a 63 y.o. male who presented from home on 10/25/2023 with several days of increasing shortness of breath, cough with sputum production and found to have AECOPD. Assessment and Plan AECOPD Chronic hypoxic respiratory failure Pulmonary cachexia - Presented with increased work of breathing, cough with sputum, and minimal air movement on exam. - Chronic 2 L nasal cannula as needed at home - CXR nonacute; no leukocytosis, afebrile - Home regimen: Trelegy, as needed DuoNebs and albuterol - PCP has recommended OP referral to Pulm rehab - He remains on room air today. He feels comfortable to discharge home. He does have nebulizer and is already on course of amoxicillin for periodontitis. Plan for discharge on prednisone, Duonebs. Continue antibiotic. Continue home Trelegy. He does have refills per recent PCP note. Essential hypertension - Continue lisinopril, Lasix Pulmonary nodules - CT lung cancer screening completed outpatient 10/12/2023 with multiple pulmonary nodules, subpleural nodule in the RUL. Per radiology report there felt to be benign based on location and characteristics. repeat CT scan was recommended in 6 months Chronic back pain - Per history. Continue home as needed Flexeril and gabapentin Opioid use disorder History of cocaine abuse, in remission - Remote, patient reports sobriety over the last 8 years. PUD - Per history with remote H. pylori infection as well as perforated gastric ulcer - Continue PPI BPH - On flomax Tobacco use - Current smoker Code Status: FULL DVT Prophylaxis: Not Indicated, Patient Ambulating Expected Date of Discharge: 10/25 Discharge Planning: CM for nebulizer supplies and discharge planning. History Chief Complaint/Reason for follow up: SOB HPI and ROS: Patient seen and examined this morning. He feels as if his breathing is stable, improved from yesterday. He is having a productive cough with green sputum. He is currently on room air. We discussed continued hospitalization versus discharge today, he wishes to be discharged home today.He does have a nebulizer machine at home. He is on amoxicillin due to a recent dental procedure andhas a full course of antibiotics to complete. No other new complaints this morning Physical Examination Temp: [97.4 F (36.3 C)-97.8 F (36.6 C)] 97.8 F (36.6 C) Heart Rate: [86-109] 109 Resp: [16-18] 18 BP: (109-138)/(68-85) 109/68 GENERAL: Awake, not in distress, very thin, appears older than stated age CV: Regular rate and rhythm, no murmurs. RESP: Diminished throughout bilaterally, no active wheezing/rhonchi. Intermittent cough. Does not appear in distress on room air GI: Soft, non-tender. NEURO: Alert, Ox3. Answers questions appropriately, moves extremities x 4 in bed Reviewed 10/27/23 7:36 AM: [x] Laboratory [x] Radiology [] Cardiology [x] Medications [x] Transcriptions [] Microbiology [x] Outside Records [] Family documented in this [id number] Hospital Discharge instructions * Discharge Instructions* Josephine Jacobs CNP - 10/27/2023 1:59 PM EDT * Discharge Instr - Care Coordination* Alfreda Wall RN - 10/26/2023 2:15 PM EDT Please call [facility] #[phone] to provide home nebulizer equipment. * Attachments The following attachments cannot be sent through Care Everywhere. * COPD: Exacerbation (Algerian) * COPD: Triggers: General Info (Algerian) documented in this [id number] Miscellaneous Notes* Significant Event - Josephine Jacobs CNP - 10/27/2023 1:00 PM EDT Messaged bedside RN and CM via [employer] chat. Patient has not utilized any of the PRN medications ordered this morning for his complaints of cough and sore throat. O2 sat is being documented in 90s on room air throughout the day. Given that he is on oral medication for COPD exacerbation and has O2 at home, I do not think he requires continued hospitalization. CM working on nebulizer for discharge. Medications have already been sent to patient's preferred pharmacy. * Significant Event - Josephine Jacobs CNP - 10/27/2023 7:01 AM EDT [id number] ENCOUNTER FOR HOME MEDICAL EQUIPMENT PATIENT: Wolf Turcios : 1960 Statement of Care: I certify that Wolf Turcios is under my care and that I, a Nurse Practitioner, had a [id number] encounter with this patient yesterday to evaluate and discuss the need for home medical equipment. I certify that based on the findings of this evaluation, which included but was not limited to the [id number] requirements, the following home medical equipment is medically necessary: Nebulizer for the administration of medications to treat COPD. Oxygen for the treatment of hypoxia due to COPD. I have reviewed patient's home oxygen evaluation and certify that this patient currently requires application of oxygen as indicated to provide appropriate treatment and support of current symptoms related to the patient's diagnosis.. Signed by: Josephine Jacobs CNP on 10/27/2023 * Quick Note - Lisa Barnett CNP - 10/26/2023 5:04 PM EDT Called to evaluate patient at bedside due to increase in oxygen demands and complaints of shortnessof breath. Patient states he had sudden onset of worsening shortness of breath while at rest. He iscurrently 90-96% on 3L nasal cannula, baseline of 2L. He has no conversational dyspnea and is speaking in full complete sentences with no distress through a 25 minute encounter. He complains of some mild leg cramping and tells me he received a potassium tablet this morning. Will obtain CXR, VBG and basic lab work. GENERAL: Awake, not in distress, very thin, appears older than stated age CV: Regular rate and rhythm, no murmurs. RESP: Diminished throughout bilaterally, no active wheezing/rhonchi. Intermittent cough. SpO2 90-96% on 3L throughout conversation GI: Soft, non-tender. NEURO: Alert, Ox3. Answers questions appropriately, moves extremities x 4 in bed * Plan of Care - Harinder Gil RN - 10/26/2023 12:16 AM EDT Plan of care initiated * ED Attestation Note - Alyce Cabral DO - 10/25/2023 8:34 PM EDT 63-year-old male with a history of COPD, hyperlipidemia, hypertension presents to the ED with shortness of breath. He states this started 2 or 3 days ago but today was significantly worse when he woke up today. Feels his chest is very tight, more short of breath with walking. He has been using his breathing treatments at home with limited relief. States he has been coughing heavily and his upper abdomen is sore from all the coughing. He has had white sputum. No fevers or chills. Patient arrived via EMS after receiving 1 breathing treatment, still very wheezy. Patient received several more breathing treatments steroids and is still tachypneic and wheezing. He is currently on his 2 L nasal cannula as needed at home, but with significant more work of breathing. Chest x-ray is unremarkable. Will continue to treat supportively but will expect that he needsto be observed overnight with continued treatment before he will be improved enough for outpatient treatment. Labs Reviewed BASIC METABOLIC PANEL - Abnormal; Notable for the following components: Result Value Glucose 117 (*) Calcium 8.2 (*) All other components within normal limits Narrative: [facility] has implemented the eGFR calculation approach that does not have a coefficient for race that conforms to the NKF-ASN Task Force Recommendations. POC VBG LAB(EPOC) - RALS - Abnormal; Notable for the following components: pCO2, Edison 53.5 (*) pO2, Edison 58 (*) O2 Sat, Edison 87.3 (*) Hemoglobin, Calculated 18.0 (*) Glucose 120 (*) Ionized Calcium 4.2 (*) All other components within normal limits Narrative: [facility] has implemented the eGFR calculation approach that does not have a coefficient for race that conforms to the NKF-ASN Task Force Recommendations. OBTAIN VENOUS BLOOD GASES AND PERFORM CBC AND DIFFERENTIAL Narrative: The following orders were created for panel order CBC w/ Diff. Procedure Abnormality Status --------- ------ CBC Auto Differential[[id number]] Final result Please view results for these tests on the individual orders. TROPONIN CBC WITH AUTO DIFFERENTIAL XR Chest 1 View Final Result No acute pulmonary disease. Workstation ID: [id number] Procedures This visit was performed by both the physician and the ASHER. I preformed a substantive part of the MDM during the patient EM visit. I personally evaluated and examined the patient. I personally made or approve the documented management plan and acknowledged its risk of complications. . . documented in this [id number] Note* Significant Event - Josephine Jacobs CNP - 10/27/2023 1:00 PM EDT Messaged bedside RN and CM via [employer] [employer] chat. Patient has not utilized any of the PRN medications ordered this morning for his complaints of cough and sore throat. O2 sat is being documented in 90s on room air throughout the day. Given that he is on oral medication for COPD exacerbation and has O2 at home, I do not think he requires continued hospitalization. CM working on nebulizer for discharge. Medications have already been sent to patient's preferred pharmacy. [id number] Jovani Jacobs CNP [facility] Hospitalists Progress Note Patient Name: Wolf Turcios PCP: Ivonne Henry MD Perpetual Assessment: Wolf Turcios is a 63 y.o. male who presented from home on 10/25/2023 with several days of increasing shortness of breath, cough with sputum production and found to have AECOPD. Assessment and Plan AECOPD Chronic hypoxic respiratory failure Pulmonary cachexia - Presented with increased work of breathing, cough with sputum, and minimal air movement on exam. - Chronic 2 L nasal cannula as needed at home. Currently utilizing 0-3L PRN - CXR nonacute; no leukocytosis, afebrile - Home regimen: Trelegy, as needed DuoNebs and albuterol - PCP has recommended OP referral to Pulm rehab - Continue on prednisone, Duonebs. Continue antibiotic-- already on amoxicillin for periodontitis. Continue home Trelegy - Repeat CXR 10/25 unremarkable - Add PEP therapy, PRN Robitussin for cough, PRN PO lidocaine for throat discomfort - F2F for nebulizer completed Essential hypertension - Continue lisinopril, Lasix with hold parameters Pulmonary nodules - CT lung cancer screening completed outpatient 10/12/2023 with multiple pulmonary nodules, subpleural nodule in the RUL. Per radiology report there felt to be benign based on location and characteristics. repeat CT scan was recommended in 6 months Chronic back pain - Per history. Continue home as needed Flexeril and gabapentin Opioid use disorder History of cocaine abuse, in remission - Remote, patient reports sobriety over the last 8 years PUD - Per history with remote H. pylori infection as well as perforated gastric ulcer - Continue PPI BPH - On flomax Tobacco use - Current smoker Code Status: FULL DVT Prophylaxis: Not Indicated, Patient Ambulating Expected Date of Discharge: TBD, potentially 10/26 afternoon if improved with med additions as above Discharge Planning: CM for nebulizer supplies and discharge planning. Continue supportive care History Chief Complaint/Reason for follow up: SOB HPI and ROS: Patient seen and examined this morning. He states he isn't doing well as he was up all night with productive cough last night. States throat feels raw from coughing. He reports he doesn't know what usually helps with cough. No chest pain, no fevers or chills. Reviewed events from yesterday. Patient originally supposed to discharge around 10 AM, however case management was working out details with his home nebulizer. Received a message from nursing staff that patient was back on oxygen around 4PM. Did ask another provider to go evaluate him and repeat chest x-ray and physical exam was unremarkable. Gven hx, would be hesitant to use hycodan or codeine for cough. Physical Examination Temp: [97.4 degrees F (36.3 degrees C)-98.4 degrees F (36.9 degrees C)] 98.4 degrees F (36.9 degrees C) Heart Rate: [86-109] 89 Resp: [14-18] 14 BP: (109-138)/(68-86) 136/86 GENERAL: Awake, not in distress, very thin, appears older than stated age, chronically ill CV: Regular rate and rhythm, no murmurs. RESP: Diminished throughout bilaterally, decreased air movement, no active wheezing/rhonchi. Intermittent cough. Does not appear in distress on room air GI: Soft, non-tender. NEURO: Alert, Ox3. Answers questions appropriately, moves extremities x 4 in bed Reviewed 10/27/23 10:00 AM: [x] Laboratory [x] Radiology [] Cardiology [x] Medications [x] Transcriptions [] Microbiology [x] Outside Records [] Family AUTHENTICATED BY JOSEPHINE JACOBS, ON 10/27/2023 12:01:02[facility]05-21-2024 Note* Significant Event - Josephine Jacobs, [facility] - 10/27/2023 7:01 AM EDT [id number] ENCOUNTER FOR HOME MEDICAL EQUIPMENT PATIENT: Wolf Turcios : 1960 Statement of Care: I certify that Wolf Turcios is under my care and that I, a Nurse Practitioner, had a fxin-xe-gyjo encounter with this patient yesterday to evaluate and discuss the need for home medical equipment. I certify that based on the findings of this evaluation, which included but was not limited to the zbto-eh-xhga requirements, the following home medical equipment is medically necessary: Nebulizer for the administration of medications to treat COPD. Oxygen for the treatment of hypoxia due to COPD. I have reviewed patient's home oxygen evaluation and certify that this patient currently requires application of oxygen as indicated to provide appropriate treatment and support of current symptoms related to the patient's diagnosis.. Signed by: Josephine Jacobs CNP on 10/27/2023 [id number] Note* Quick Note - Lisa Barnett CNP - 10/26/2023 5:04 PM EDT Called to evaluate patient at bedside due to increase in oxygen demands and complaints of shortnessof breath. Patient states he had sudden onset of worsening shortness of breath while at rest. He iscurrently 90-96% on 3L nasal cannula, baseline of 2L. He has no conversational dyspnea and is speaking in full complete sentences with no distress through a 25 minute encounter. He complains of some mild leg cramping and tells me he received a potassium tablet this morning. Will obtain CXR, VBG and basic lab work. GENERAL: Awake, not in distress, very thin, appears older than stated age CV: Regular rate and rhythm, no murmurs. RESP: Diminished throughout bilaterally, no active wheezing/rhonchi. Intermittent cough. SpO2 90-96% on 3L throughout conversation GI: Soft, non-tender. NEURO: Alert, Ox3. Answers questions appropriately, moves extremities x 4 in bed [facility] Work Phone: [phone]) 257-797305-20-2024 Consult note* Adriel Corona LSW - 10/26/2023 1:54 PM EDTAssociated Order(s): IP CONSULT TO CARE MANAGEMENT Care Management Consult Note Date: 10/26/2023 Time: 1:54 PM Patient Name: Wolf Turcios Date of : 1960 Reason for Consult: Discharge Plan: D/C Disposition: Home Reason for Choice: Patient/Family preference Discharging Transportation Plan: Transportation Type: Cab Discharge Plan Status: Care management consulted for dc needs. Chart reviewed. No therapy orders atthis time. RANGE MANAGER met with pt at bedside and introduced role in dc planning. Demographic information including PCP and insurance coverage. PCP listed on facesheet. Pt reports he currently staying lives a friend in a private residence. Pt reports friends and family as support. Pt reports receiving servi luke such as meals on wheels from [employer].Pt reports hx of rehab experience. Pt has no DME atbaseline. Pt's states he is able to call himself at dc. Pt is medication adherent. He denies falls in the past 6 months. Pt denies cultural/spirituality beliefs. Pt reports family are aware of his wishes. Pt reports hx of constant chronic left leg pains and rated pain as 9. RANGE MANAGER will follow. Assessment and Background Information: Living Arrangements: Friends Support Systems: Friends/neighbors, Family members Assistance Needed: none Type of Residence: Private residence Prior to Admission Home Care Services: No Current Home Equipment: None Holistic Assessment Medication adherence problem:: No History of falls in last 6 months:: No Family aware of the patient's advance care planning wishes:: Yes Do you have any cultural/spiritual connections or beliefs that would impact how we deliver your care?: No Chronic pain:: (!) Yes Location of chronic pain:: Left leg Chronic pain timing:: Constant Chronic pain severity:: 9 Limitation of routine activities due to chronic pain:: Yes [id number] Consult note* Adriel Corona LSW - 10/26/2023 1:54 PM EDT Associated Order(s): IP CONSULT TO CARE MANAGEMENT Care Management Consult Note Date: 10/26/2023 Time: 1:54 PM Patient Name: Wolf Turcios Date of : 1960 Reason for Consult: Discharge Plan: D/C Disposition: Home Reason for Choice: Patient/Family preference Discharging Transportation Plan: Transportation Type: Cab Discharge Plan Status: Care management consulted for dc needs. Chart reviewed. No therapy orders atthis time. RANGE MANAGER met with pt at bedside and introduced role in dc planning. Demographic information including PCP and insurance coverage. PCP listed on facesheet. Pt reports he currently staying lives a friend in a private residence. Pt reports friends and family as support. Pt reports receiving servi luke such as meals on wheels from [employer].Pt reports hx of rehab experience. Pt has no DME atbaseline. Pt's states he is able to call himself at [place]. Pt is medication adherent. He denies falls in the past 6 months. Pt denies cultural/spirituality beliefs. Pt reports family are aware of his wishes. Pt reports hx of constant chronic left leg pains and rated pain as 9. RANGE MANAGER will follow. Assessment and Background Information: Living Arrangements: Friends Support Systems: Friends/neighbors, Family members Assistance Needed: none Type of Residence: Private residence Prior to Admission Home Care Services: No Current Home Equipment: None Holistic Assessment Medication adherence problem:: No History of falls in last 6 months:: No Family aware of the patient's advance care planning wishes:: Yes Do you have any cultural/spiritual connections or beliefs that would impact how we deliver your care?: No Chronic pain:: (!) Yes Location of chronic pain:: Left leg Chronic pain timing:: Constant Chronic pain severity:: 9 Limitation of routine activities due to chronic pain:: Yes documented in this [id number] NoteKelgabino Jacobs, LAM [facility] Hospitalists Discharge Summary Wolf Turcios Admit Date: 10/25/2023 Discharge Date: 10/26/23 Primary Care Physician: Ivonne Henry MD Clinical Summary and Hospital Course AECOPD Chronic hypoxic respiratory failure Pulmonary cachexia - Presented with increased work of breathing, cough with sputum, and minimal air movement on exam. - Chronic 2 L nasal cannula as needed at home - CXR nonacute; no leukocytosis, afebrile - Home regimen: Trelegy, as needed DuoNebs and albuterol - PCP has recommended OP referral to Pulm rehab - He remains on room air today. He feels comfortable to discharge home. He does have nebulizer and is already on course of amoxicillin. Plan for discharge on prednisone, Duonebs. Continue antibiotic. Continue home Trelegy. He does have refills per recent PCP note. Essential hypertension - Continue lisinopril, Lasix Pulmonary nodules - CT lung cancer screening completed outpatient 10/12/2023 with multiple pulmonary nodules, subpleural nodule in the RUL. Per radiology report there felt to be benign based on location and characteristics. repeat CT scan was recommended in 6 months Chronic back pain - Per history. Continue home as needed Flexeril and gabapentin Opioid use disorder History of cocaine abuse, in remission - Remote, patient reports sobriety over the last 8 years. PUD - Per history with remote H. pylori infection as well as perforated gastric ulcer - Continue PPI BPH - On flomax Tobacco use - Current smoker Comments/Problems to be Addressed after Discharge Procedures: CXR Allergies: Ibuprofen and Codeine Disposition: Home Code Status: FULL Discharge Medication Recommendations Discharge Medications New Medications Details predniSONE 20 MG tablet Commonly known as: DELTASONE Start taking on: October 27, 2023 Take 2 (two) tablets (40 mg total) by mouth daily with breakfast for 4 days Start: 10/27/23. Quantity: 8 tablet Modified Medications Details ipratropium-albuteroL 0.5-2.5 mg/3 ml nebulizer Commonly known as: DUO-NEB What changed: how to take this Take 3 mL by nebulization every 6 (six) hours as needed for wheezing or shortness of breath . Quantity: 120 mL Medications To Continue Details amoxicillin 500 MG capsule Commonly known as: AMOXIL Take 1 (one) capsule (500 mg total) by mouth 3 (three) times a day . cyclobenzaprine 10 MG tablet Commonly known as: FLEXERIL Take 1 (one) tablet (10 mg total) by mouth every 12 (twelve) hours as needed for muscle spasms . furosemide 20 MG tablet Commonly known as: LASIX Take 1 (one) tablet (20 mg total) by mouth daily . guaiFENesin 600 mg 12 hr tablet Commonly known as: MUCINEX Take 1 (one) tablet (600 mg total) by mouth 2 (two) times a day . * lisinopriL 10 MG tablet Commonly known as: PRINIVIL,ZESTRIL Take 1 (one) tablet (10 mg total) by mouth daily Total of 30mg . * lisinopriL 20 MG tablet Commonly known as: PRINIVIL,ZESTRIL Take 1 (one) tablet (20 mg total) by mouth daily Total of 30mg . loratadine 10 mg tablet Commonly known as: CLARITIN Take 1 (one) tablet (10 mg total) by mouth daily as needed . omeprazole 20 MG capsule Commonly known as: PRILOSEC Take 1 (one) capsule (20 mg total) by mouth daily . OXYGEN-AIR DELIVERY SYSTEMS MISC by continuous inhalation route as needed (Not using oxygen tanks, unknown #L) . potassium chloride SA 20 MEQ tablet Commonly known as: K-DUR,KLOR-CON Take 1 (one) tablet (20 mEq total) by mouth every morning . tamsulosin 0.4 mg capsule Commonly known as: FLOMAX Take 1 (one) capsule (0.4 mg total) by mouth every morning before breakfast . Trelegy Ellipta 100-62.5-25 mcg Dsdv Generic drug: yocthfixqdn-rgrtuwfvp-qmrmddjk Inhale 1 puff daily . Quantity: 28 each * There are duplicate medications prescribed to the patient Wolf Turicos was seen and examined on the day of discharge. 1000: Patient seen and examined this morning. He feels as if his breathing is stable, improved from yesterday. He is having a productive cough with green sputum. He is currently on room air. We discussed continued hospitalization versus discharge today, he wishes to be discharged home today. He does have a nebulizer machine at home. He is on amoxicillin due to a recent dental procedure and has a full course of antibiotics to complete. No other new complaints this morning ROS: Negative for chest pain, fevers, chills Positive for cough Physical Exam: 10/26/23 1030 BP: 118/75 Pulse: 91 Resp: 17 Temp: 97.4 degrees F (36.3 degrees C) SpO2: 91% GENERAL: Awake, not in distress, very thin, appears older than stated age CV: Regular rate and rhythm, no murmurs. RESP: Diminished throughout bilaterally, no active wheezing/rhonchi. Intermittent cough. Does not appear in distress on room air GI: Soft, non-tender. NEURO: Alert, Ox3. Answers questions a (more content not included)...[facility]05-20-2024 Hospital course Narrative* Josephine Jacobs CNP - 10/26/2023 12:26 PM EDT Images from the original note were not included. Josephine Jacobs CNP [facility] Hospitalists Discharge Summary Wolf Turcios Admit Date: 10/25/2023 Discharge Date: 10/26/23 Primary Care Physician: Ivonne Henry MD Clinical Summary and Hospital Course AECOPD Chronic hypoxic respiratory failure Pulmonary cachexia - Presented with increased work of breathing, cough with sputum, and minimal air movement on exam. - Chronic 2 L nasal cannula as needed at home - CXR nonacute; no leukocytosis, afebrile - Home regimen: Trelegy, as needed DuoNebs and albuterol - PCP has recommended OP referral to Pulm rehab - He remains on room air today. He feels comfortable to discharge home. He does have nebulizer and is already on course of amoxicillin. Plan for discharge on prednisone, Duonebs. Continue antibiotic.Continue home Trelegy. He does have refills per recent PCP note. Essential hypertension - Continue lisinopril, Lasix Pulmonary nodules - CT lung cancer screening completed outpatient 10/12/2023 with multiple pulmonary nodules, subpleural nodule in the RUL. Per radiology report there felt to be benign based on location and characteristics. repeat CT scan was recommended in 6 months Chronic back pain - Per history. Continue home as needed Flexeril and gabapentin Opioid use disorder History of cocaine abuse, in remission - Remote, patient reports sobriety over the last 8 years. PUD - Per history with remote H. pylori infection as well as perforated gastric ulcer - Continue PPI BPH - On flomax Tobacco use - Current smoker Comments/Problems to be Addressed after Discharge Procedures: CXR Allergies: Ibuprofen and Codeine Disposition: Home Code Status: FULL Discharge Medication Recommendations Discharge Medications New Medications Details predniSONE 20 MG tablet Commonly known as: DELTASONE Start taking on: October 27, 2023 Take 2 (two) tablets (40 mg total) by mouth daily with breakfast for 4 days Start: 10/27/23. Quantity: 8 tablet Modified Medications Details ipratropium-albuteroL 0.5-2.5 mg/3 ml nebulizer Commonly known as: DUO-NEB What changed: how to take this Take 3 mL by nebulization every 6 (six) hours as needed for wheezing or shortness of breath . Quantity: 120 mL Medications To Continue Details amoxicillin 500 MG capsule Commonly known as: AMOXIL Take 1 (one) capsule (500 mg total) by mouth 3 (three) times a day . cyclobenzaprine 10 MG tablet Commonly known as: FLEXERIL Take 1 (one) tablet (10 mg total) by mouth every 12 (twelve) hours as needed for muscle spasms . furosemide 20 MG tablet Commonly known as: LASIX Take 1 (one) tablet (20 mg total) by mouth daily . guaiFENesin 600 mg 12 hr tablet Commonly known as: MUCINEX Take 1 (one) tablet (600 mg total) by mouth 2 (two) times a day . * lisinopriL 10 MG tablet Commonly known as: PRINIVIL,ZESTRIL Take 1 (one) tablet (10 mg total) by mouth daily Total of 30mg . * lisinopriL 20 MG tablet Commonly known as: PRINIVIL,ZESTRIL Take 1 (one) tablet (20 mg total) by mouth daily Total of 30mg . loratadine 10 mg tablet Commonly known as: CLARITIN Take 1 (one) tablet (10 mg total) by mouth daily as needed . omeprazole 20 MG capsule Commonly known as: PRILOSEC Take 1 (one) capsule (20 mg total) by mouth daily . OXYGEN-AIR DELIVERY SYSTEMS MISC by continuous inhalation route as needed (Not using oxygen tanks, unknown #L) . potassium chloride SA 20 MEQ tablet Commonly known as: K-DUR,KLOR-CON Take 1 (one) tablet (20 mEq total) by mouth every morning . tamsulosin 0.4 mg capsule Commonly known as: FLOMAX Take 1 (one) capsule (0.4 mg total) by mouth every morning before breakfast . Trelegy Ellipta 100-62.5-25 mcg Dsdv Generic drug: ictswkwfqmd-apdqznnkv-edshditp Inhale 1 puff daily . Quantity: 28 each * There are duplicate medications prescribed to the patient Wolf Turcios was seen and examined on the day of discharge. 1000: Patient seen and examined this morning. He feels as if his breathing is stable, improved fromyesterday. He is having a productive cough with green sputum. He is currently on room air. We discussed continued hospitalization versus discharge today, he wishes to be discharged home today. He does have a nebulizer machine at home. He is on amoxicillin due to a recent dental procedure and has a full course of antibiotics to complete. No other new complaints this morning ROS: Negative for chest pain, fevers, chills Positive for cough Physical Exam: 10/26/23 1030 BP: 118/75 Pulse: 91 Resp: 17 Temp: 97.4 F (36.3 C) SpO2: 91% GENERAL: Awake, not in distress, very thin, appears older than stated age CV: Regular rate and rhythm, no murmurs. RESP: Diminished throughout bilaterally, no active wheezing/rhonchi. Intermittent cough. Does not appear in distress on room air GI: Soft, non-tender. NEURO: Alert, Ox3. Answers questions appropriately, moves extremities x 4 in bed I reviewed the discharge plans with the patient. This included details regarding diagnosis, medications, OP follow up. Time Spent on Discharge: 38 mins documented in this [id number] Jovani Jacobs CNP [facility] Hospitalists Progress Note Patient Name: Wolf Turcios PCP: Ivonne Henry MD Perpetual Assessment: Wolf Turcios is a 63 y.o. male who presented from home on 10/25/2023 with several days of increasing shortness of breath, cough with sputum production and found to have AECOPD. Assessment and Plan AECOPD Chronic hypoxic respiratory failure Pulmonary cachexia - Presented with increased work of breathing, cough with sputum, and minimal air movement on exam. - Chronic 2 L nasal cannula as needed at home - CXR nonacute; no leukocytosis, afebrile - Home regimen: Trelegy, as needed DuoNebs and albuterol - PCP has recommended OP referral to Pulm rehab - He remains on room air today. He feels comfortable to discharge home. He does have nebulizer and is already on course of amoxicillin for periodontitis. Plan for discharge on prednisone, Duonebs. Continue antibiotic. Continue home Trelegy. He does have refills per recent PCP note. Essential hypertension - Continue lisinopril, Lasix Pulmonary nodules - CT lung cancer screening completed outpatient 10/12/2023 with multiple pulmonary nodules, subpleural nodule in the RUL. Per radiology report there felt to be benign based on location and characteristics. repeat CT scan was recommended in 6 months Chronic back pain - Per history. Continue home as needed Flexeril and gabapentin Opioid use disorder History of cocaine abuse, in remission - Remote, patient reports sobriety over the last 8 years. PUD - Per history with remote H. pylori infection as well as perforated gastric ulcer - Continue PPI BPH - On flomax Tobacco use - Current smoker Code Status: FULL DVT Prophylaxis: Not Indicated, Patient Ambulating Expected Date of Discharge: 10/25 Discharge Planning: CM for nebulizer supplies and discharge planning. History Chief Complaint/Reason for follow up: SOB HPI and ROS: Patient seen and examined this morning. He feels as if his breathing is stable, improved from yesterday. He is having a productive cough with green sputum. He is currently on room air. We discussed continued hospitalization versus discharge today, he wishes to be discharged home today. He does have a nebulizer machine at home. He is on amoxicillin due to a recent dental procedure and has a full course of antibiotics to complete. No other new complaints this morning Physical Examination Temp: [97.4 degrees F (36.3 degrees C)-97.8 degrees F (36.6 degrees C)] 97.8 degrees F (36.6 degrees C) Heart Rate: [86-109] 109 Resp: [16-18] 18 BP: (109-138)/(68-85) 109/68 GENERAL: Awake, not in distress, very thin, appears older than stated age CV: Regular rate and rhythm, no murmurs. RESP: Diminished throughout bilaterally, no active wheezing/rhonchi. Intermittent cough. Does not appear in distress on room air GI: Soft, non-tender. NEURO: Alert, Ox3. Answers questions appropriately, moves extremities x 4 in bed Reviewed 10/27/23 7:36 AM: [x] Laboratory [x] Radiology [] Cardiology [x] Medications [x] Transcriptions [] Microbiology [x] Outside Records [] Family AUTHENTICATED BY JOSEPHINE JACOBS, ON 10/27/2023 07:38:18[facility]05-20-2024 Note* Plan of Care - Harinder Gil RN - 10/26/2023 12:16 AM EDT Plan of care initiated [id number] Emergency department Note* Leigh Reyes RN - 10/25/2023 9:47 PM EDT Patient resting comfortably with eyes open at this time. Patient updated on plan of care, restroom help and PO intake offered at this time. Patient denies additional needs. Call light in reach, bed in low position. [id number] Emergency department Note* Leigh Reyes RN - 10/25/2023 9:47 PM EDT Patient resting comfortably with eyes open at this time. Patient updated on plan of care, restroom help and PO intake offered at this time. Patient denies additional needs. Call light in reach, bed in low position. * Flores Almanza - 10/25/2023 9:15 PM EDT [facility] to write orders for [phone] * Leigh Reyes RN - 10/25/2023 7:24 PM EDT This RN just took over care from previous shift.Patient resting comfortably with eyes open at this time. Patient updated on plan of care, restroom help offered at this time. Patient denies additionalneeds. Call light in reach, bed in low position. * Mirta Christopher PA-C - 10/25/2023 6:42 PM EDT PCP - Ivonne Henry MD Chief Complaint Patient presents with Shortness of Breath HPI/ Medical Decision Making Patient is a 63-year-old male with past medical history of asthma, COPD, hyperlipidemia, hypertension, thoracic aortic aneurysm who presents to the ED for evaluation of shortness of breath. Onset 2 to 3 days ago and progressively worsening. Patient reports shortness of breath is exacerbated by walking. He has tried breathing treatments and inhalers at home without relief. Patient does report somechest pain which is described as burning and worse when he coughs. He does reports a cough productive of white sputum, increasing in frequency compared to his baseline. Denies known fever or chills. Patient denies unilateral lower extremity swelling or redness, history of blood clots, recent travelor immobility, recent surgery or trauma, hormonal medication use, active cancer, or hemoptysis. On chart review, patient was hospitalized for acute respiratory failure with hypoxia and COPD exacerbation on 08/21/2021. Patient states he will use 2 L nasal cannula at home as needed. ED course/Differential diagnoses: Patient is a 63-year-old male who presents to the ED for evaluation of shortness of breath. Differential diagnoses include but not limited to COPD exacerbation, asthma exacerbation, pneumonia, bronchitis. On exam patient is chronically ill-appearing. He is in no acute distress and resting comfortably on the cot. He does cough during my exam and produces white sputum. Accessory muscle usage with coughing but patient recovers and speaks in full sentences on 2 L nasal cannula. He is tachycardic at 116. Tachypneic at 32. Blood pressure 104/76, afebrile, 98% on 2 L. Workup in the ED includes VBG with normal pH, pCO2 at 53, baseline. CBC with no leukocytosis, no anemia, platelets normal. BMP with hyperglycemia at 117. Troponin normal. Chest x-ray with no acute pulmonary disease as interpreted by radiologist. EKG obtained and interpreted by attending. Update: Symptoms consistent with COPD exacerbation. Patient remain tachypneic, he is appropriate for observation. Discussed results and plan with patient. Patient understands and agrees with this plan. Patient was also seen and evaluated by ED attending, Dr. Cabral. Will admit to [facility] KEN. Please see hospital attending physician note for further information and final disposition of this patient. Impressions: 1. COPD exacerbation (HCC) 2. Increased sputum production 3. Tachypnea MDM Data ED Course as of 10/25/232114 Sun October 25, 20232112 Spoke with [facility], agreeable for admission [RO] ED Course User Index [RO] Mirta Christopher PA-C [facility] Data: External Documents/Labs Reviewed, ECG interpreted, X-ray interpretation reviewed, Discussed with consultants/staff, and Shared decision making utilized Previous Records Reviewed . . Labs Reviewed BASIC METABOLIC PANEL - Abnormal; Notable for the following components: Result Value Glucose 117 (*) Calcium 8.2 (*) All other components within normal limits Narrative: [facility] has implemented the eGFR calculation approach that does not have a coefficient for race that conforms to the NKF-ASN Task Force Recommendations. POC VBG LAB(EPO) - RALS - Abnormal; Notable for the following components: pCO2, Edison 53.5 (*) pO2, Edison 58 (*) O2 Sat, Edison 87.3 (*) Hemoglobin, Calculated 18.0 (*) Glucose 120 (*) Ionized Calcium 4.2 (*) All other components within normal limits Narrative: [facility] has implemented the eGFR calculation approach that does not have a coefficient for race that conforms to the NKF-ASN Task Force Recommendations. OBTAIN VENOUS BLOOD GASES AND PERFORM CBC AND DIFFERENTIAL Narrative: The following orders were created for panel order CBC w/ Diff. Procedure Abnormality Status --------- ------ CBC Auto Differential[[id number]] Final result Please view results for these tests on the individual orders. TROPONIN CBC WITH AUTO DIFFERENTIAL Radiographic Imaging (if any) During ED Visit XR Chest 1 View Final Result No acute pulmonary disease. Workstation ID: [id number] Medications Ordered/Given During ED Visit Medications predniSONE (DELTASONE) tablet 60 mg (60 mg Oral Given 10/25/232006) ipratropium-albuteroL (DUO-NEB) 0.5-2.5 mg/3 ml nebulizer solution 3 mL (3 mL Inhalation Given 10/25/231951) albuterol (PROVENTIL) 2.5 mg /3 mL (0.083 %) nebulizer solution 2.5 mg (2.5 mg Inhalation Given 10/25/232048) albuterol (PROVENTIL) 2.5 mg /3 mL (0.083 %) nebulizer solution 2.5 mg (2.5 mg Inhalation Given 10/25/232047) . I saw and evaluated the patient. I have reviewed the chief complaint, triage note, past medical/surgical, family, and social history. END OF MEDICAL DECISION MAKING Physical Exam Initial Vital Signs BP 100/75 Pulse (!) 105 Temp 98 F (36.7 C) (Oral) Resp (!) 24 Wt 72.6 kg (160 lb) SpO2 95% BMI 21.11 kg/m Vital Signs During ED Visit (as charted by nursing) Patient Vitals for the past 24 hrs: BP Temp Temp src Pulse Resp SpO2 Weight 10/25/232048 -- -- -- -- -- 95 % -- 10/25/231999 100/75 -- -- (!) 105 (!) 24 98 % -- 10/25/231952 -- -- -- -- -- 95 % -- 10/25/23 192 (!) 110/53 -- -- (!) 105 (!) 23 93 % -- 10/25/23 1830 104/76 -- -- (!) 116 (!) 32 98 % -- 10/25/23 1826 104/76 98 F (36.7 C) Oral (!) 113 (!) 31 97 % 72.6 kg (160 lb) Physical Exam Vitals and nursing note reviewed. Constitutional: General: He is not in acute distress. Appearance: He is ill-appearing (Chronically ill-appearing). He is not toxic- appearing or diaphoretic. HENT: Head: Normocephalic and atraumatic. Eyes: Conjunctiva/sclera: Conjunctivae normal. Cardiovascular: Rate and Rhythm: Normal rate and regular rhythm. Heart sounds: Normal heart sounds. Pulmonary: Effort: Pulmonary effort is normal. Tachypnea present. Breath sounds: Decreased breath sounds and wheezing present. Comments: Coughs frequently during exam, white sputum. Accessory muscle usage. When not coughing, able to speak in full sentences. Abdominal: General: Abdomen is flat. Skin: General: Skin is warm. Neurological: Mental Status: He is alert and oriented to person, place, and time. Psychiatric: Behavior: Behavior normal. Procedures Review of Systems As described above or not pertinent to present emergent encounter. All other systems reviewed and negative. Past Medical History Past Medical History: Diagnosis Date Arthritis Asthma Cataract Bilat- s/p Right eye laser Chest pain +ED 09/21/20- Troponin and Chest CT-Neg for PE showed pneuomia and emphysema Cocaine abuse in remission ([facility]) None since 2015- now on suboxone COPD (chronic obstructive pulmonary disease) ([facility]) Multiple ED visits- last 08/2020 Edema BLE + ED visit 07/25/20 Emphysema of lung ([facility]) Severe Essential hypertension 01/10/2017 Hyperlipidemia Neck pain Peptic ulcer disease PUD (peptic ulcer disease) Sepsis due to pneumonia ([facility]) 04/2020 Multiple ED visits- last 08/2020. Saw Pulm Dr Hollis while IP 04/20/20 Thoracic aortic aneurysm ([facility]) States d/t drug overdose TIA (transient ischemic attack) Tobacco abuse Past Surgical History Past Surgical History: Procedure Laterality Date ARTHROPLASTY HIP TOTAL Right 01/28/2021 Procedure: RIGHT TOTAL HIP ARTHROPLASTY; Surgeon: Teresa Terry MD; Location: [facility] OR; Service: Orthopedic EYE SURGERY Right Laser for cataract GASTRIC ULCER PERFORATION REPAIR Family History Family History Problem Relation Age of Onset Diabetes Mother Diabetes Father Throat cancer Sister Heart attack Maternal Grandmother Pulmonary embolism Neg Hx Deep vein thrombosis Neg Hx Clotting disorder Neg Hx Heart disease Neg Hx Anesthesia problems Neg Hx Surgical complications Neg Hx Social History Social History Socioeconomic History Marital status: Single Tobacco Use Smoking status: Every Day Packs/day: 0.25 Years: 39.00 Additional pack years: 0.00 Total pack years: 9.75 Types: Cigarettes Start date: 01/19/1969 Smokeless tobacco: Never Tobacco comments: Trying to cut back, 6 cigs per day Vaping Use Vaping Use: Never used Substance and Sexual Activity Alcohol use: Not Currently Comment: 1 beer per month Drug use: Not Currently Types: Crack cocaine Comment: H/o Sober since 2016- now on suboxone Allergies Allergies Allergen Reactions Ibuprofen Gives him UTI Codeine Itching Including all derivatives - is well tolerated when taking Benadryl prophylaxis Medications Active Home Medications Medication Sig Take Last Dose On Take Morning of Surgery Comment(s) acetaminophen (TYLENOL) 500 MG tablet Take 500 mg by mouth every 8 (eight) hours as needed for pain. albuterol (PROVENTIL) 2.5 mg /3 mL (0.083 %) nebulizer solution Take 3 mL (2.5 mg total) by nebulization every 4 (four) hours as needed for wheezing Dx: J44.0 . albuterol 90 mcg/actuation inhaler Inhale 2 (two) puffs every 6 (six) hours as needed for wheezing,cough or shortness of breath . budesonide-formoteroL (SYMBICORT) 160-4.5 mcg/actuation inhaler Inhale 2 (two) puffs 2 (two) times a day . buprenorphine-nalOXone (SUBOXONE) 8-[address] 1 each under the tongue 2 (two) times a day . cyclobenzaprine (FLEXERIL) 10 MG tablet Take 10 mg by mouth every 12 (twelve) hours as needed for muscle spasms . docusate sodium (COLACE) 100 MG capsule Take 100 mg by mouth 2 (two) times a day . furosemide (LASIX) 20 MG tablet Take 20 mg by mouth every morning . hydroCHLOROthiazide (HYDRODIURIL) 12.5 MG tablet Take 12.5 mg by mouth every morning . loratadine (CLARITIN) 10 mg tablet Take 10 mg by mouth daily as needed . melatonin 3 mg Tab Take 3 mg by mouth nightly . montelukast (SINGULAIR) 10 mg tablet Take 1 (one) tablet (10 mg total) by mouth nightly . (Patient taking differently: Take 10 mg by mouth every morning .) potassium chloride SA (K-DUR,KLOR-CON) 20 MEQ tablet Take 20 mEq by mouth every morning . tamsulosin (FLOMAX) 0.4 mg capsule Take 0.4 mg by mouth every morning before breakfast . tiotropium bromide (Spiriva Respimat) 2.5 mcg/actuation Mist Inhale 5 mcg every morning . traZODone (DESYREL) 50 MG tablet Take 50-100 mg by mouth nightly as needed . Narx Check Score and Data was review on this visit Note: To expedite correspondence this note was generated by [employer] voice recognition software. This note was partially created using voice recognition software and is inherently subject to errors including those of syntax and sound-alike substitutions which may escape proofreading. In such instances, original meaning may be extrapolated by contextual derivation. Mirta Christopher PA-C 10/25/232114 * Janusz Parmar RN - 10/25/2023 6:24 PM EDT Pt presents to ED for c.o SOB x2-3 days. Pt states symptoms unrelieved with inhaler and breathing treatments at home. Pt arrives to ED via EMS with duoneb in progress. EMS states on arrival pt had diminished breath sounds bilaterally with rhonchi and SpO2 at 86%. * Christina Obregon RN - 10/25/2023 6:22 PM EDT Bed: 49 Expected date: Expected time: Means of arrival: Comments: M16/fiers documented in this [id number] History and physical note* Barbara Layton DO - 10/25/2023 9:19 PM EDT Barbara Layton DO [facility] Hospitalists History and Physical Patient Name: Wolf Turcios : 1960 Admit Date: [id number] Physicians: Ivonne Henry MD (Family) Perpetual Assessment: Wolf Turcios is a 63 y.o. male past medical history of COPD on chronic as needed oxygen, hypertension who presented from home on 10/25/2023 with several days of increasing shortness of breath, cough with sputum production and found to have AECOPD. Assessment and Plan AECOPD Chronic hypoxic respiratory failure Pulmonary Cachexia -Increased work of breathing, cough with sputum, and minimal air movement on exam. -Chronic 2 L nasal cannula as needed at home -CXR nonacute; no leukocytosis, afebrile -Home regimen: Trelegy, as needed DuoNebs and albuterol -Plan for prednisone, azithromycin, scheduled and as needed DuoNebs, Trelegy equivalent Essential hypertension -Blood pressure acceptable in the ER -Resume Home lisinopril, Lasix Pulmonary nodules -CT lung cancer screening completed outpatient 10/12/2023 with multiple pulmonary nodules, subpleuralnodule in the RUL. Per radiology report there felt to be benign based on location and characteristics. repeat CT scan was recommended in 6 months Chronic back pain -Per history. Continue home as needed Flexeril and gabapentin Opioid use disorder History of cocaine abuse, in remission - remote, patient reports sobriety over the last 8 years. PUD -Per history with remote H. pylori infection as well as perforated gastric ulcer -Continue PPI BPH - on flomax Tobacco use -Current smoker -NRT available Medication Reconciliation: Reviewed DVT Prophylaxis: Lovenox Code Status: Full code Expected date of discharge: 24-48 hours Discharge Planning: Possible discharge home 10/25 pending clinical improvement History Chief Complaint: Shortness of breath, cough HPI and ROS: Wolf Turcios is a 63 y.o. male presenting with increased shortness of breath, cough for several days. Cough is productive of increased sputum. He has some aching musculoskeletal chest pain that is worse with cough. He has been utilizing his Trelegy inhaler and DuoNebs without much improvement. He is now out of his Trelegy. He is an active smoker. No fevers or chills. PMH/PSH/SH/FH: Past Medical History: Diagnosis Date Arthritis Asthma Cataract Bilat- s/p Right eye laser Chest pain +ED 09/21/20- Troponin and Chest CT-Neg for PE showed pneuomia and emphysema Cocaine abuse in remission (HCC) None since 2015- now on suboxone COPD (chronic obstructive pulmonary disease) ([facility]) Multiple ED visits- last 08/2020 Edema BLE + ED visit 07/25/20 Emphysema of lung ([facility]) Severe Essential hypertension 01/10/2017 Hyperlipidemia Neck pain Peptic ulcer disease PUD (peptic ulcer disease) Sepsis due to pneumonia ([facility]) 04/2020 Multiple ED visits- last 08/2020. Saw Pulm Dr Hollis while IP 04/20/20 Thoracic aortic aneurysm ([facility]) States d/t drug overdose TIA (transient ischemic attack) Tobacco abuse Past Surgical History: Procedure Laterality Date ARTHROPLASTY HIP TOTAL Right 01/28/2021 Procedure: RIGHT TOTAL HIP ARTHROPLASTY; Surgeon: Teresa Terry MD; Location: [facility] OR; Service: Orthopedic EYE SURGERY Right Laser for cataract GASTRIC ULCER PERFORATION REPAIR Family History Problem Relation Age of Onset Diabetes Mother Diabetes Father Throat cancer Sister Heart attack Maternal Grandmother Pulmonary embolism Neg Hx Deep vein thrombosis Neg Hx Clotting disorder Neg Hx Heart disease Neg Hx Anesthesia problems Neg Hx Surgical complications Neg Hx Social History Socioeconomic History Marital status: Single Tobacco Use Smoking status: Every Day Packs/day: 0.25 Years: 39.00 Additional pack years: 0.00 Total pack years: 9.75 Types: Cigarettes Start date: 01/19/1969 Smokeless tobacco: Never Tobacco comments: Trying to cut back, 6 cigs per day Vaping Use Vaping Use: Never used Substance and Sexual Activity Alcohol use: Not Currently Comment: 1 beer per month Drug use: Not Currently Types: Crack cocaine Comment: H/o Sober since 2017- now on suboxone Allergy Information: I have reviewed the patient's allergies. Ibuprofen and Codeine Home Medications: Outpatient Medications Marked as Taking for the 10/25/23 encounter (Hospital Encounter) Medication Sig furosemide (LASIX) 20 MG tablet Take 1 (one) tablet (20 mg total) by mouth daily . lisinopriL (PRINIVIL,ZESTRIL) 10 MG tablet Take 1 (one) tablet (10 mg total) by mouth daily Total of 30mg . lisinopriL (PRINIVIL,ZESTRIL) 20 MG tablet Take 1 (one) tablet (20 mg total) by mouth daily . Trelegy Ellipta 100-62.5-25 mcg DsDv Inhale 1 puff daily . Physical Examination Vital Signs: Temp: [98 F (36.7 C)] 98 F (36.7 C) Heart Rate: [101-116] 105 Resp: [15-32] 20 BP: (100-110)/(53-87) 108/87 GENERAL: Awake, not in distress, very thin, unkempt and appears much older than stated age CV: Regular rate and rhythm, no murmurs. RESP: Reasonable air movement, mild to moderate conversational dyspnea, tachypnea, no accessory muscle use, O2 sat 94% on 2 L nasal cannula GI: Soft, non-tender. NEURO: Alert, Ox3. Laboratory and Additional Data Reviewed: Laboratory-X Radiology-X Cardiology-X Medications-X Transcriptions-X Microbiology Outside Records-X Family Risk variables present on admission:Protein Calorie Malnutrition, Cachexia. Please see assessment and plan for further details. [facility] Work Phone: [phone]) 968-186005-19-2024 NoteEmma Marjan Layton DO [facility] Hospitalists History and Physical Patient Name: Wolf Turcios : 1960 Admit Date: [id number] Physicians: Ivonne Henry MD (Family) Perpetual Assessment: Wolf Turcios is a 63 y.o. male past medical history of COPD on chronic as needed oxygen, hypertension who presented from home on 10/25/2023 with several days of increasing shortness of breath, cough with sputum production and found to have AECOPD. Assessment and Plan AECOPD Chronic hypoxic respiratory failure Pulmonary Cachexia -Increased work of breathing, cough with sputum, and minimal air movement on exam. -Chronic 2 L nasal cannula as needed at home -CXR nonacute; no leukocytosis, afebrile -Home regimen: Trelegy, as needed DuoNebs and albuterol -Plan for prednisone, azithromycin, scheduled and as needed DuoNebs, Trelegy equivalent Essential hypertension -Blood pressure acceptable in the ER -Resume Home lisinopril, Lasix Pulmonary nodules -CT lung cancer screening completed outpatient 10/12/2023 with multiple pulmonary nodules, subpleural nodule in the RUL. Per radiology report there felt to be benign based on location and characteristics. repeat CT scan was recommended in 6 months Chronic back pain -Per history. Continue home as needed Flexeril and gabapentin Opioid use disorder History of cocaine abuse, in remission - remote, patient reports sobriety over the last 8 years. PUD -Per history with remote H. pylori infection as well as perforated gastric ulcer -Continue PPI BPH - on flomax Tobacco use -Current smoker -NRT available Medication Reconciliation: Reviewed DVT Prophylaxis: Lovenox Code Status: Full code Expected date of discharge: 24-48 hours Discharge Planning: Possible discharge home 10/25 pending clinical improvement History Chief Complaint: Shortness of breath, cough HPI and ROS: Wolf Turcios is a 63 y.o. male presenting with increased shortness of breath, cough for several days. Cough is productive of increased sputum. He has some aching musculoskeletal chest pain that is worse with cough. He has been utilizing his Trelegy inhaler and DuoNebs without much improvement. He is now out of his Trelegy. He is an active smoker. No fevers or chills. PMH/PSH/SH/FH: Past Medical History: Diagnosis Date Arthritis Asthma Cataract Bilat- s/p Right eye laser Chest pain +ED 09/21/20- Troponin and Chest CT-Neg for PE showed pneuomia and emphysema Cocaine abuse in remission ([facility]) None since 2015- now on suboxone COPD (chronic obstructive pulmonary disease) ([facility]) Multiple ED visits- last 08/2020 Edema BLE + ED visit 07/25/20 Emphysema of lung ([facility]) Severe Essential hypertension 01/10/2017 Hyperlipidemia Neck pain Peptic ulcer disease PUD (peptic ulcer disease) Sepsis due to pneumonia ([facility]) 04/2020 Multiple ED visits- last 08/2020. Saw Pulm Dr Hollis while IP 04/20/20 Thoracic aortic aneurysm ([facility]) States d/t drug overdose TIA (transient ischemic attack) Tobacco abuse Past Surgical History: Procedure Laterality Date ARTHROPLASTY HIP TOTAL Right 01/28/2021 Procedure: RIGHT TOTAL HIP ARTHROPLASTY; Surgeon: Teresa Terry MD; Location: [facility] OR; Service: Orthopedic EYE SURGERY Right Laser for cataract GASTRIC ULCER PERFORATION REPAIR Family History Problem Relation Age of Onset Diabetes Mother Diabetes Father Throat cancer Sister Heart attack Maternal Grandmother Pulmonary embolism Neg Hx Deep vein thrombosis Neg Hx Clotting disorder Neg Hx Heart disease Neg Hx Anesthesia problems Neg Hx Surgical complications Neg Hx Social History Socioeconomic History Marital status: Single Tobacco Use Smoking status: Every Day Packs/day: 0.25 Years: 39.00 Additional pack years: 0.00 Total pack years: 9.75 Types: Cigarettes Start date: 01/19/1969 Smokeless tobacco: Never Tobacco comments: Trying to cut back, 6 cigs per day Vaping Use Vaping Use: Never used Substance and Sexual Activity Alcohol use: Not Currently Comment: 1 beer per month Drug use: Not Currently Types: Crack cocaine Comment: H/o Sober since 2016- now on suboxone Allergy Information: I have reviewed the patient's allergies. Ibuprofen and Codeine Home Medications: Outpatient Medications Marked as Taking for the 10/25/23 encounter (Hospital Encounter) Medication Sig furosemide (LASIX) 20 MG tablet Take 1 (one) tablet (20 mg total) by mouth daily . lisinopriL (PRINIVIL,ZESTRIL) 10 MG tablet Take 1 (one) tablet (10 mg total) by mouth daily Total of 30mg . lisinopriL (PRINIVIL,ZESTRIL) 20 MG tablet Take 1 (one) tablet (20 mg total) by mouth daily . Trelegy Ellipta 100-62.5-25 mcg DsDv Inhale 1 puff daily . Physical Examination Vital Signs: Temp: [98 degrees F (36.7 degrees C)] 98 degrees F (36.7 degrees C) Heart Rate: [101-116] 105 Resp: [15-32] 20 BP: (10 (more content not included)...[facility]05-19-2024 History and physical note* Barbara Layton DO - 10/25/2023 9:19 PM EDT Barbara Layton DO [facility] Hospitalists History and Physical Patient Name: Wolf Turcios : 1960 Admit Date: [id number] Physicians: Ivonne Henry MD (Family) Perpetual Assessment: Wolf Turcios is a 63 y.o. male past medical history of COPD on chronic as needed oxygen, hypertension who presented from home on 10/25/2023 with several days of increasing shortness of breath, cough with sputum production and found to have AECOPD. Assessment and Plan AECOPD Chronic hypoxic respiratory failure Pulmonary Cachexia -Increased work of breathing, cough with sputum, and minimal air movement on exam. -Chronic 2 L nasal cannula as needed at home -CXR nonacute; no leukocytosis, afebrile -Home regimen: Trelegy, as needed DuoNebs and albuterol -Plan for prednisone, azithromycin, scheduled and as needed DuoNebs, Trelegy equivalent Essential hypertension -Blood pressure acceptable in the ER -Resume Home lisinopril, Lasix Pulmonary nodules -CT lung cancer screening completed outpatient 10/12/2023 with multiple pulmonary nodules, subpleuralnodule in the RUL. Per radiology report there felt to be benign based on location and characteristics. repeat CT scan was recommended in 6 months Chronic back pain -Per history. Continue home as needed Flexeril and gabapentin Opioid use disorder History of cocaine abuse, in remission - remote, patient reports sobriety over the last 8 years. PUD -Per history with remote H. pylori infection as well as perforated gastric ulcer -Continue PPI BPH - on flomax Tobacco use -Current smoker -NRT available Medication Reconciliation: Reviewed DVT Prophylaxis: Lovenox Code Status: Full code Expected date of discharge: 24-48 hours Discharge Planning: Possible discharge home 10/25 pending clinical improvement History Chief Complaint: Shortness of breath, cough HPI and ROS: Wolf Turcios is a 63 y.o. male presenting with increased shortness of breath, cough for several days. Cough is productive of increased sputum. He has some aching musculoskeletal chest pain that is worse with cough. He has been utilizing his Trelegy inhaler and DuoNebs without much improvement. He is now out of his Trelegy. He is an active smoker. No fevers or chills. PMH/PSH/SH/FH: Past Medical History: Diagnosis Date Arthritis Asthma Cataract Bilat- s/p Right eye laser Chest pain +ED 09/21/20- Troponin and Chest CT-Neg for PE showed pneuomia and emphysema Cocaine abuse in remission ([facility]) None since 2015- now on suboxone COPD (chronic obstructive pulmonary disease) ([facility]) Multiple ED visits- last 08/2020 Edema BLE + ED visit 07/25/20 Emphysema of lung ([facility]) Severe Essential hypertension 01/10/2017 Hyperlipidemia Neck pain Peptic ulcer disease PUD (peptic ulcer disease) Sepsis due to pneumonia ([facility]) 04/2020 Multiple ED visits- last 08/2020. Saw Pulm Dr Hollis while IP 04/20/20 Thoracic aortic aneurysm ([facility]) States d/t drug overdose TIA (transient ischemic attack) Tobacco abuse Past Surgical History: Procedure Laterality Date ARTHROPLASTY HIP TOTAL Right 01/28/2021 Procedure: RIGHT TOTAL HIP ARTHROPLASTY; Surgeon: Teresa Terry MD; Location: [facility] OR; Service: Orthopedic EYE SURGERY Right Laser for cataract GASTRIC ULCER PERFORATION REPAIR Family History Problem Relation Age of Onset Diabetes Mother Diabetes Father Throat cancer Sister Heart attack Maternal Grandmother Pulmonary embolism Neg Hx Deep vein thrombosis Neg Hx Clotting disorder Neg Hx Heart disease Neg Hx Anesthesia problems Neg Hx Surgical complications Neg Hx Social History Socioeconomic History Marital status: Single Tobacco Use Smoking status: Every Day Packs/day: 0.25 Years: 39.00 Additional pack years: 0.00 Total pack years: 9.75 Types: Cigarettes Start date: 01/19/1969 Smokeless tobacco: Never Tobacco comments: Trying to cut back, 6 cigs per day Vaping Use Vaping Use: Never used Substance and Sexual Activity Alcohol use: Not Currently Comment: 1 beer per month Drug use: Not Currently Types: Crack cocaine Comment: H/o Sober since 2017- now on suboxone Allergy Information: I have reviewed the patient's allergies. Ibuprofen and Codeine Home Medications: Outpatient Medications Marked as Taking for the 10/25/23 encounter (Hospital Encounter) Medication Sig furosemide (LASIX) 20 MG tablet Take 1 (one) tablet (20 mg total) by mouth daily . lisinopriL (PRINIVIL,ZESTRIL) 10 MG tablet Take 1 (one) tablet (10 mg total) by mouth daily Total of 30mg . lisinopriL (PRINIVIL,ZESTRIL) 20 MG tablet Take 1 (one) tablet (20 mg total) by mouth daily . Trelegy Ellipta 100-62.5-25 mcg DsDv Inhale 1 puff daily . Physical Examination Vital Signs: Temp: [98 F (36.7 C)] 98 F (36.7 C) Heart Rate: [101-116] 105 Resp: [15-32] 20 BP: (100-110)/(53-87) 108/87 GENERAL: Awake, not in distress, very thin, unkempt and appears much older than stated age CV: Regular rate and rhythm, no murmurs. RESP: Reasonable air movement, mild to moderate conversational dyspnea, tachypnea, no accessory muscle use, O2 sat 94% on 2 L nasal cannula GI: Soft, non-tender. NEURO: Alert, Ox3. Laboratory and Additional Data Reviewed: Laboratory-X Radiology-X Cardiology-X Medications-X Transcriptions-X Microbiology Outside Records-X Family Risk variables present on admission:Protein Calorie Malnutrition, Cachexia. Please see assessment and plan for further details. documented in this [id number] Emergency department Note* Flores Almanza - 10/25/2023 9:15 PM EDT copc to write orders for ken [id number] Note* ED Attestation Note - Alyce Cabral DO - 10/25/2023 8:34 PM EDT 63-year-old male with a history of COPD, hyperlipidemia, hypertension presents to the ED with shortness of breath. He states this started 2 or 3 days ago but today was significantly worse when he woke up today. Feels his chest is very tight, more short of breath with walking. He has been using his breathing treatments at home with limited relief. States he has been coughing heavily and his upper abdomen is sore from all the coughing. He has had white sputum. No fevers or chills. Patient arrived via EMS after receiving 1 breathing treatment, still very wheezy. Patient received several more breathing treatments steroids and is still tachypneic and wheezing. He is currently on his 2 L nasal cannula as needed at home, but with significant more work of breathing. Chest x-ray is unremarkable. Will continue to treat supportively but will expect that he needsto be observed overnight with continued treatment before he will be improved enough for outpatient treatment. Labs Reviewed BASIC METABOLIC PANEL - Abnormal; Notable for the following components: Result Value Glucose 117 (*) Calcium 8.2 (*) All other components within normal limits Narrative: [facility] has implemented the eGFR calculation approach that does not have a coefficient for race that conforms to the NKF-ASN Task Force Recommendations. POC VBG LAB(EPOC) - RALS - Abnormal; Notable for the following components: pCO2, Edison 53.5 (*) pO2, Edison 58 (*) O2 Sat, Edison 87.3 (*) Hemoglobin, Calculated 18.0 (*) Glucose 120 (*) Ionized Calcium 4.2 (*) All other components within normal limits Narrative: [facility] has implemented the eGFR calculation approach that does not have a coefficient for race that conforms to the NKF-ASN Task Force Recommendations. OBTAIN VENOUS BLOOD GASES AND PERFORM CBC AND DIFFERENTIAL Narrative: The following orders were created for panel order CBC w/ Diff. Procedure Abnormality Status --------- ------ CBC Auto Differential[[id number]] Final result Please view results for these tests on the individual orders. TROPONIN CBC WITH AUTO DIFFERENTIAL XR Chest 1 View Final Result No acute pulmonary disease. Workstation ID: [id number] Procedures This visit was performed by both the physician and the ASHER. I preformed a substantive part of the MDM during the patient EM visit. I personally evaluated and examined the patient. I personally made or approve the documented management plan and acknowledged its risk of complications. . . [facility] Work Phone: [phone] Emergency department Note* Leigh Reyes RN - 10/25/2023 7:24 PM EDT This RN just took over care from previous shift.Patient resting comfortably with eyes open at this time. Patient updated on plan of care, restroom help offered at this time. Patient denies additionalneeds. Call light in reach, bed in low position. [id number] Physician Emergency department Note* Mirta Christopher PA-C - 10/25/2023 6:42 PM EDT PCP - Ivonne Henry MD Chief Complaint Patient presents with Shortness of Breath HPI/ Medical Decision Making Patient is a 63-year-old male with past medical history of asthma, COPD, hyperlipidemia, hypertension, thoracic aortic aneurysm who presents to the ED for evaluation of shortness of breath. Onset 2 to 3 days ago and progressively worsening. Patient reports shortness of breath is exacerbated by walking. He has tried breathing treatments and inhalers at home without relief. Patient does report somechest pain which is described as burning and worse when he coughs. He does reports a cough productive of white sputum, increasing in frequency compared to his baseline. Denies known fever or chills. Patient denies unilateral lower extremity swelling or redness, history of blood clots, recent travelor immobility, recent surgery or trauma, hormonal medication use, active cancer, or hemoptysis. On chart review, patient was hospitalized for acute respiratory failure with hypoxia and COPD exacerbation on 08/21/2021. Patient states he will use 2 L nasal cannula at home as needed. ED course/Differential diagnoses: Patient is a 63-year-old male who presents to the ED for evaluation of shortness of breath. Differential diagnoses include but not limited to COPD exacerbation, asthma exacerbation, pneumonia, bronchitis. On exam patient is chronically ill-appearing. He is in no acute distress and resting comfortably on the cot. He does cough during my exam and produces white sputum. Accessory muscle usage with coughing but patient recovers and speaks in full sentences on 2 L nasal cannula. He is tachycardic at 116. Tachypneic at 32. Blood pressure 104/76, afebrile, 98% on 2 L. Workup in the ED includes VBG with normal pH, pCO2 at 53, baseline. CBC with no leukocytosis, no anemia, platelets normal. BMP with hyperglycemia at 117. Troponin normal. Chest x-ray with no acute pulmonary disease as interpreted by radiologist. EKG obtained and interpreted by attending. Update: Symptoms consistent with COPD exacerbation. Patient remain tachypneic, he is appropriate for observation. Discussed results and plan with patient. Patient understands and agrees with this plan. Patient was also seen and evaluated by ED attending, Dr. Cabral. Will admit to [facility]. Please see hospital attending physician note for further information and final disposition of this patient. Impressions: 1. COPD exacerbation (HCC) 2. Increased sputum production 3. Tachypnea MDM Data ED Course as of 10/25/232114 Sun October 25, 20232112 Spoke with [facility], agreeable for admission [RO] ED Course User Index [RO] Mirta Christopher PA-C [facility] Data: External Documents/Labs Reviewed, ECG interpreted, X-ray interpretation reviewed, Discussed with consultants/staff, and Shared decision making utilized Previous Records Reviewed . . Labs Reviewed BASIC METABOLIC PANEL - Abnormal; Notable for the following components: Result Value Glucose 117 (*) Calcium 8.2 (*) All other components within normal limits Narrative: [facility] has implemented the eGFR calculation approach that does not have a coefficient for race that conforms to the NKF-ASN Task Force Recommendations. POC VBG LAB(EPO) - RALS - Abnormal; Notable for the following components: pCO2, Edison 53.5 (*) pO2, Edison 58 (*) O2 Sat, Edison 87.3 (*) Hemoglobin, Calculated 18.0 (*) Glucose 120 (*) Ionized Calcium 4.2 (*) All other components within normal limits Narrative: [facility] has implemented the eGFR calculation approach that does not have a coefficient for race that conforms to the NKF-ASN Task Force Recommendations. OBTAIN VENOUS BLOOD GASES AND PERFORM CBC AND DIFFERENTIAL Narrative: The following orders were created for panel order CBC w/ Diff. Procedure Abnormality Status --------- ------ CBC Auto Differential[[id number]] Final result Please view results for these tests on the individual orders. TROPONIN CBC WITH AUTO DIFFERENTIAL Radiographic Imaging (if any) During ED Visit XR Chest 1 View Final Result No acute pulmonary disease. Workstation ID: [id number] Medications Ordered/Given During ED Visit Medications predniSONE (DELTASONE) tablet 60 mg (60 mg Oral Given 10/25/232006) ipratropium-albuteroL (DUO-NEB) 0.5-2.5 mg/3 ml nebulizer solution 3 mL (3 mL Inhalation Given 10/25/231951) albuterol (PROVENTIL) 2.5 mg /3 mL (0.083 %) nebulizer solution 2.5 mg (2.5 mg Inhalation Given 10/25/232048) albuterol (PROVENTIL) 2.5 mg /3 mL (0.083 %) nebulizer solution 2.5 mg (2.5 mg Inhalation Given 10/25/232047) . I saw and evaluated the patient. I have reviewed the chief complaint, triage note, past medical/surgical, family, and social history. END OF MEDICAL DECISION MAKING Physical Exam Initial Vital Signs BP 100/75 Pulse (!) 105 Temp 98 F (36.7 C) (Oral) Resp (!) 24 Wt 72.6 kg (160 lb) SpO2 95% BMI 21.11 kg/m Vital Signs During ED Visit (as charted by nursing) Patient Vitals for the past 24 hrs: BP Temp Temp src Pulse Resp SpO2 Weight 10/25/232048 -- -- -- -- -- 95 % -- 10/25/231999 100/75 -- -- (!) 105 (!) 24 98 % -- 10/25/231952 -- -- -- -- -- 95 % -- 10/25/23 192 (!) 110/53 -- -- (!) 105 (!) 23 93 % -- 10/25/23 1830 104/76 -- -- (!) 116 (!) 32 98 % -- 10/25/23 1826 104/76 98 F (36.7 C) Oral (!) 113 (!) 31 97 % 72.6 kg (160 lb) Physical Exam Vitals and nursing note reviewed. Constitutional: General: He is not in acute distress. Appearance: He is ill-appearing (Chronically ill-appearing). He is not toxic- appearing or diaphoretic. HENT: Head: Normocephalic and atraumatic. Eyes: Conjunctiva/sclera: Conjunctivae normal. Cardiovascular: Rate and Rhythm: Normal rate and regular rhythm. Heart sounds: Normal heart sounds. Pulmonary: Effort: Pulmonary effort is normal. Tachypnea present. Breath sounds: Decreased breath sounds and wheezing present. Comments: Coughs frequently during exam, white sputum. Accessory muscle usage. When not coughing, able to speak in full sentences. Abdominal: General: Abdomen is flat. Skin: General: Skin is warm. Neurological: Mental Status: He is alert and oriented to person, place, and time. Psychiatric: Behavior: Behavior normal. Procedures Review of Systems As described above or not pertinent to present emergent encounter. All other systems reviewed and negative. Past Medical History Past Medical History: Diagnosis Date Arthritis Asthma Cataract Bilat- s/p Right eye laser Chest pain +ED 09/21/20- Troponin and Chest CT-Neg for PE showed pneuomia and emphysema Cocaine abuse in remission ([facility]) None since 2015- now on suboxone COPD (chronic obstructive pulmonary disease) ([facility]) Multiple ED visits- last 08/2020 Edema BLE + ED visit 07/25/20 Emphysema of lung ([facility]) Severe Essential hypertension 01/10/2017 Hyperlipidemia Neck pain Peptic ulcer disease PUD (peptic ulcer disease) Sepsis due to pneumonia ([facility]) 04/2020 Multiple ED visits- last 08/2020. Saw Pulm Dr Hollis while IP 04/20/20 Thoracic aortic aneurysm ([facility]) States d/t drug overdose TIA (transient ischemic attack) Tobacco abuse Past Surgical History Past Surgical History: Procedure Laterality Date ARTHROPLASTY HIP TOTAL Right 01/28/2021 Procedure: RIGHT TOTAL HIP ARTHROPLASTY; Surgeon: Teresa Terry MD; Location: [facility] OR; Service: Orthopedic EYE SURGERY Right Laser for cataract GASTRIC ULCER PERFORATION REPAIR Family History Family History Problem Relation Age of Onset Diabetes Mother Diabetes Father Throat cancer Sister Heart attack Maternal Grandmother Pulmonary embolism Neg Hx Deep vein thrombosis Neg Hx Clotting disorder Neg Hx Heart disease Neg Hx Anesthesia problems Neg Hx Surgical complications Neg Hx Social History Social History Socioeconomic History Marital status: Single Tobacco Use Smoking status: Every Day Packs/day: 0.25 Years: 39.00 Additional pack years: 0.00 Total pack years: 9.75 Types: Cigarettes Start date: 01/19/1969 Smokeless tobacco: Never Tobacco comments: Trying to cut back, 6 cigs per day Vaping Use Vaping Use: Never used Substance and Sexual Activity Alcohol use: Not Currently Comment: 1 beer per month Drug use: Not Currently Types: Crack cocaine Comment: H/o Sober since 2016- now on suboxone Allergies Allergies Allergen Reactions Ibuprofen Gives him UTI Codeine Itching Including all derivatives - is well tolerated when taking Benadryl prophylaxis Medications Active Home Medications Medication Sig Take Last Dose On Take Morning of Surgery Comment(s) acetaminophen (TYLENOL) 500 MG tablet Take 500 mg by mouth every 8 (eight) hours as needed for pain. albuterol (PROVENTIL) 2.5 mg /3 mL (0.083 %) nebulizer solution Take 3 mL (2.5 mg total) by nebulization every 4 (four) hours as needed for wheezing Dx: J44.0 . albuterol 90 mcg/actuation inhaler Inhale 2 (two) puffs every 6 (six) hours as needed for wheezing,cough or shortness of breath . budesonide-formoteroL (SYMBICORT) 160-4.5 mcg/actuation inhaler Inhale 2 (two) puffs 2 (two) times a day . buprenorphine-nalOXone (SUBOXONE) 8-[address] 1 each under the tongue 2 (two) times a day . cyclobenzaprine (FLEXERIL) 10 MG tablet Take 10 mg by mouth every 12 (twelve) hours as needed for muscle spasms . docusate sodium (COLACE) 100 MG capsule Take 100 mg by mouth 2 (two) times a day . furosemide (LASIX) 20 MG tablet Take 20 mg by mouth every morning . hydroCHLOROthiazide (HYDRODIURIL) 12.5 MG tablet Take 12.5 mg by mouth every morning . loratadine (CLARITIN) 10 mg tablet Take 10 mg by mouth daily as needed . melatonin 3 mg Tab Take 3 mg by mouth nightly . montelukast (SINGULAIR) 10 mg tablet Take 1 (one) tablet (10 mg total) by mouth nightly . (Patient taking differently: Take 10 mg by mouth every morning .) potassium chloride SA (K-DUR,KLOR-CON) 20 MEQ tablet Take 20 mEq by mouth every morning . tamsulosin (FLOMAX) 0.4 mg capsule Take 0.4 mg by mouth every morning before breakfast . tiotropium bromide (Spiriva Respimat) 2.5 mcg/actuation Mist Inhale 5 mcg every morning . traZODone (DESYREL) 50 MG tablet Take 50-100 mg by mouth nightly as needed . Narx Check Score and Data was review on this visit Note: To expedite correspondence this note was generated by [employer] voice recognition software. This note was partially created using voice recognition software and is inherently subject to errors including those of syntax and sound-alike substitutions which may escape proofreading. In such instances, original meaning may be extrapolated by contextual derivation. Mirta Christopher PA-C 10/25/232114 [facility] Work Phone: [phone] Emergency department Note* Janusz Parmar RN - 10/25/2023 6:24 PM EDT Pt presents to ED for c.o SOB x2-3 days. Pt states symptoms unrelieved with inhaler and breathing treatments at home. Pt arrives to ED via EMS with duoneb in progress. EMS states on arrival pt had diminished breath sounds bilaterally with rhonchi and SpO2 at 86%. [id number] Emergency department Note* Christina Obregon RN - 10/25/2023 6:22 PM EDT Bed: 49 Expected date: Expected time: Means of arrival: Comments: [id number] Telephone encounter Note* Telephone Encounter - Farnce Mike - 10/22/2023 9:45 AM EDT Pt says he is out of this med now. RX Prior Authorization Requested Name of person calling: Wolf Turcios Pharmacy Name: - [facility] Who prescribed the medication requiring PA: - Ivonne Henry MD Name of medication requiring PA: - Trelegy Ellipta 100-62.5-25 MCG/ACT Aerosol Powder, breath activated inhaler Dosage: -Sig - Route: Inhale 1 puff daily. - Inhalation Quantity: -60 Reason for the PA (step therapy, quantity exceeds amount allowed, need to use covered alternative, not covered): pt not sure he say it needs a PA Prescription Insurance Name: - [place] Insurance phone number: - n/a Any alternative medications covered on plan? (this is for covered alternative or not covered): -n/a If patient is calling: What other medications have they tried/failed: n/a [facility]05-14-2024 Telephone encounter Note* Telephone Encounter - Kiersten Cerna RN - 10/20/2023 11:15 AM EDT Called and let patient know that since he has established with an eye doctor that we will leave further prescriptions to them. Advised that if he needs any refills for eye drops he should reach out to their office. Patient expressed understanding and agreement. [facility]05-14-2024 Miscellaneous Notes* Telephone Encounter - Kiersten Cerna RN - 10/20/2023 11:15 AM EDT Called and let patient know that since he has established with an eye doctor that we will leave further prescriptions to them. Advised that if he needs any refills for eye drops he should reach out to their office. Patient expressed understanding and agreement. * Telephone Encounter - Flores Bruce MD - 10/20/2023 11:06 AM EDT Covering for Dr. Henry. So seems like patient has established with eye doctor. Will leave further prescriptions to them. - Dionte Martin * Telephone Encounter - Kiersten Cerna RN - 10/20/2023 10:59 AM EDT Spoke to patient today and advised him that his medications had been sent to his requested pharmacy. Also discussed the following with the patient: -patient states he has never had an infection or inflammation of the eye. The only eye surgery he has previously had is his cataract surgery. -He states he uses the drops twice a day, but is using it as needed for dry eyes. He still has two tubes left before he is out. -He states his [facility] didn't accept his insurance, so he was recommended to go to a different office. He had an eye exam completed yesterday at [facility]. Patient think they might take over prescribing the eye drops if it is necessary. * Addendum Note - Ivonne Henry MD - 10/20/2023 10:26 AM EDTAddended by: IVONNE HENRY on: 10/20/2023 10:26 AM Modules accepted: Orders * Telephone Encounter - Ivonne Henry MD - 10/20/2023 10:21 AM EDT Sent in Trelegy inhaler, cyclobenzaprine, and loratadine. The available information on eyedrops hasbeen limited with no available outside records for review. Will need a bit more information prior to updating the script Could you ask Mr. Turcios the following questions: - Has he ever had any sort of an infection or inflammation or the eye? Any prior surgeries besides the cataracts? - How many times a day is he using the eye drops currently? - Please also remind him that there is an active ophthalmology consult that he needs to schedule for ongoing management Pending response, may be able to stop and watch for recurrent/worsening symptoms. Alternatively, may need to taper off of eye drops if on QID dosing or consider continuing as a bridge until ophtho evaluation. * Addendum Note - Ivonne Henry MD - 10/19/2023 6:27 PM EDTAddended by: IVONNE HENRY on: 10/19/2023 06:27 PM Modules accepted: Orders * Addendum Note - Kiersten Cerna RN - 10/19/2023 4:54 PM EDTAddended by: KIERSTEN CERNA on: 10/19/2023 04:54 PM Modules accepted: Orders * Telephone Encounter - Kiersten Cerna RN - 10/19/2023 4:33 PM EDT Called and spoke to patient today. Discussed results and recommendations from PCP. Patient would like to do pulmonary rehab, but would like to wait a couple months since he is still settling. He saidthat he just moved from [place] to [place] and needs to have his medications sent to a pharmacy in [place]. * Telephone Encounter - Kiersten Cerna RN - 10/19/2023 1:52 PM EDT Attempted to reach patient twice, states wireless caller is not available, please try again later. Will follow up later this afternoon. * Telephone Encounter - Kiersten Cerna RN - 10/19/2023 1:51 PM EDT ----- Message from Ivonne Henry MD sent at 10/19/2023 1:35 PM EDT ----- Please let Wolf know that his breathing tests confirm his diagnosis of COPD. It will be important for him to stay on his inhalers. He is interested, we can also refer him to Pulmonary rehab to work on increasing his breathing capacity. Let me know if he is interested in I am happy to place that referral. Thank you! [facility] Tele[facility] encounter Note* Telephone Encounter - Flores Bruce MD - 10/20/2023 11:06 AM EDT Covering for Dr. Henry. So seems like patient has established with eye doctor. Will leave further prescriptions to them. - Dionte Martin [facility] Work Phone: [phone]) 145-856305-14-2024 Telephone encounter Note* Telephone Encounter - iKersten Cerna RN - 10/20/2023 10:59 AM EDT Spoke to patient today and advised him that his medications had been sent to his requested pharmacy. Also discussed the following with the patient: -patient states he has never had an infection or inflammation of the eye. The only eye surgery he has previously had is his cataract surgery. -He states he uses the drops twice a day, but is using it as needed for dry eyes. He still has two tubes left before he is out. -He states his [facility] didn't accept his insurance, so he was recommended to go to a different office. He had an eye exam completed yesterday at [facility]. Patient think they might take over prescribing the eye drops if it is necessary. [facility]* Addendum Note - Ivonne Henry MD - 10/20/2023 10:26 AM EDTAddended by: IVONNE HENRY on: 10/20/2023 10:26 AM Modules accepted: [facility]* Addendum Note - Ivonne Henry MD - 10/20/2023 10:26 AM EDTAddended by: IVONNE HENRY on: 10/20/2023 10:26 AM Modules accepted: [facility]* Addendum Note - Ivonne Henry MD - 10/20/2023 10:26 AM EDTAddended by: IVONNE HENRY on: 10/20/2023 10:26 AM Modules accepted: [facility]* Addendum Note - Ivonne Henry MD - 10/20/2023 10:26 AM EDTAddended by: IVONNE HENRY on: 10/20/2023 10:26 AM Modules accepted: Orders [facility]05-14-2024 Telephone encounter Note* Telephone Encounter - Ivonne Henry MD - 10/20/2023 10:21 AM EDT Sent in Trelegy inhaler, cyclobenzaprine, and loratadine. The available information on eyedrops hasbeen limited with no available outside records for review. Will need a bit more information prior to updating the script Could you ask Mr. Turcios the following questions: - Has he ever had any sort of an infection or inflammation or the eye? Any prior surgeries besides the cataracts? - How many times a day is he using the eye drops currently? - Please also remind him that there is an active ophthalmology consult that he needs to schedule for ongoing management Pending response, may be able to stop and watch for recurrent/worsening symptoms. Alternatively, may need to taper off of eye drops if on QID dosing or consider continuing as a bridge until ophtho evaluation. [facility]05-13-2024 Note* Addendum Note - Ivonne Henry MD - 10/19/2023 6:27 PM EDTAddended by: IVONNE HENRY on: 10/19/2023 06:27 PM Modules accepted: Orders [facility]05-13-2024 Note* Addendum Note - Ivonne Henry MD - 10/19/2023 6:27 PM EDTAddended by: IVONNE HENRY on: 10/19/2023 06:27 PM Modules accepted: [facility]* Addendum Note - Ivonne Henry MD - 10/19/2023 6:27 PM EDTAddended by: IVONNE HENRY on: 10/19/2023 06:27 PM Modules accepted: [facility]* Addendum Note - Ivonne Henry MD - 10/19/2023 6:27 PM EDTAddended by: IVONNE HENRY on: 10/19/2023 06:27 PM Modules accepted: Orders [facility]05-13-2024 Note* Addendum Note - Ivonne Henry MD - 10/19/2023 6:27 PM EDTAddended by: IVONNE HENRY on: 10/19/2023 06:27 PM Modules accepted: Orders [facility]05-13-2024 Note* Addendum Note - Ivonne Henry MD - 10/19/2023 6:27 PM EDTAddended by: IVONNE HENRY on: 10/19/2023 06:27 PM Modules accepted: Orders [facility]05-13-2024 Miscellaneous Notes* Addendum Note - Ivonne Henry MD - 10/19/2023 6:27 PM EDTAddended by: IVONNE HENRY on: 10/19/2023 06:27 PM Modules accepted: Orders * Addendum Note - Kiersten Cerna RN - 10/19/2023 4:54 PM EDTAddended by: KIERSTEN CERNA on: 10/19/2023 04:54 PM Modules accepted: Orders * Telephone Encounter - Kiersten Cerna RN - 10/19/2023 4:33 PM EDT Called and spoke to patient today. Discussed results and recommendations from PCP. Patient would like to do pulmonary rehab, but would like to wait a couple months since he is still settling. He saidthat he just moved from [place] to [place] and needs to have his medications sent to a pharmacy in [place]. * Telephone Encounter - Kiersten Cerna RN - 10/19/2023 1:52 PM EDT Attempted to reach patient twice, states wireless caller is not available, please try again later. Will follow up later this afternoon. * Telephone Encounter - Kiersten Cerna RN - 10/19/2023 1:51 PM EDT ----- Message from Ivonne Henry MD sent at 10/19/2023 1:35 PM EDT ----- Please let Wolf know that his breathing tests confirm his diagnosis of COPD. It will be important for him to stay on his inhalers. He is interested, we can also refer him to Pulmonary rehab to work on increasing his breathing capacity. Let me know if he is interested in I am happy to place that referral. Thank you! [facility]* Addendum Note - Kiersten Cerna RN - 10/19/2023 4:54 PM EDTAddended by: KIERSTEN CERNA on: 10/19/2023 04:54 PM Modules accepted: [facility]* Addendum Note - Kiersten Cerna RN - 10/19/2023 4:54 PM EDTAddended by: KIERSTEN CERNA on: 10/19/2023 04:54 PM Modules accepted: Orders [facility]* Addendum Note - Kiersten Cerna RN - 10/19/2023 4:54 PM EDTAddended by: KIERSTEN CERNA on: 10/19/2023 04:54 PM Modules accepted: Orders [facility]05-13-2024 Note* Addendum Note - Kiersten Cerna RN - 10/19/2023 4:54 PM EDTAddended by: KIERSTEN CERNA on: 10/19/2023 04:54 PM Modules accepted: Orders [facility]05-13-2024 Note* Addendum Note - Kiersten Cerna RN - 10/19/2023 4:54 PM EDTAddended by: KIERSTEN CERNA on: 10/19/2023 04:54 PM Modules accepted: Orders [facility]05-13-2024 Note* Addendum Note - Kiersten Cerna RN - 10/19/2023 4:54 PM EDTAddended by: KIERSTEN CERNA on: 10/19/2023 04:54 PM Modules accepted: Orders [facility]05-13-2024 Telephone encounter Note* Telephone Encounter - Kiersten eCrna RN - 10/19/2023 4:33 PM EDT Called and spoke to patient today. Discussed results and recommendations from PCP. Patient would like to do pulmonary rehab, but would like to wait a couple months since he is still settling. He saidthat he just moved from [place] to [place] and needs to have his medications sent to a pharmacy in [place]. [facility]05-13-2024 Telephone encounter Note* Telephone Encounter - Kiersten Cerna RN - 10/19/2023 1:52 PM EDT Attempted to reach patient twice, states wireless caller is not available, please try again later. Will follow up later this afternoon. [facility]05-13-2024 Telephone encounter Note* Telephone Encounter - Kiersten Cerna RN - 10/19/2023 1:51 PM EDT ----- Message from Ivonne Henry MD sent at 10/19/2023 1:35 PM EDT ----- Please let Wolf know that his breathing tests confirm his diagnosis of COPD. It will be important for him to stay on his inhalers. He is interested, we can also refer him to Pulmonary rehab to work on increasing his breathing capacity. Let me know if he is interested in I am happy to place that referral. Thank you! [facility]04-29-2024 Evaluation + Plan note* Assessment & Plan Note - Ivonne Henry MD - 10/05/2023 5:05 PM EDTAssociated Problem(s): DDD (degenerative disc disease), lumbar Neurogenic claudication present, it appears that pain and sensory involvement is the predominant feature, but will send for stat spine clinic evaluation given the severity of disease on MRI in 2021. We discussed reasons for emergent evaluation including weakness, sensory loss in the groin and extending to the right side and loss of control of bowels/bladder. Regarding pain management, he has done well previously on suboxone for treatment of chronic pain syndrome. Connecting to PCAM clinic to discuss re initiation/titration [facility]04-29-2024 Miscellaneous Notes* Assessment & Plan Note - Ivonne Henry MD - 10/05/2023 5:05 PM EDTAssociated Problem(s): DDD (degenerative disc disease), lumbar Neurogenic claudication present, it appears that pain and sensory involvement is the predominant feature, but will send for stat spine clinic evaluation given the severity of disease on MRI in 2021. We discussed reasons for emergent evaluation including weakness, sensory loss in the groin and extending to the right side and loss of control of bowels/bladder. Regarding pain management, he has done well previously on suboxone for treatment of chronic pain syndrome. Connecting to PCAM clinic to discuss re initiation/titration * Assessment & Plan Note - Ivonne Henry MD - 10/05/2023 4:57 PM EDT Associated Problem(s): BPH (benign prostatic hyperplasia) Continuing Flomax. After shared decision making, elected to pursue PSA screening. This was found ria elevated and will repeat in 6-8 weeks. If still elevated, plan for urology referral * Assessment & Plan Note - Ivonne Henry MD - 10/05/2023 4:56 PM EDT Associated Problem(s): Essential hypertension Blood pressure is well controlled.Updating chem 6. Continuing current regimen. * Assessment & Plan Note - Ivonne Henry MD - 10/05/2023 4:46 PM EDT Associated Problem(s): Cocaine abuse in remission Stable, encouraged sustained remission * Assessment & Plan Note - Ivonne Henry MD - 10/05/2023 4:45 PM EDT Associated Problem(s): Tobacco abuse Tobacco Cessation Plan: I provided tobacco cessation counseling. He is not ready to quit. Counseling was provided. * Assessment & Plan Note - Ivonne Henry MD - 10/05/2023 4:44 PM EDT Associated Problem(s): DU (perforated duodenal ulcer) Stable, continue PPI * Assessment & Plan Note - Ivonne Henry MD - 10/05/2023 4:42 PM EDT Associated Problem(s): PUD (peptic ulcer disease) Continue omeprazole, updating H pylori testing. * Assessment & Plan Note - Ivonne Hnery MD - 10/02/2023 3:24 PM EDT Associated Problem(s): Other emphysema Updating PFTs and CT lung cancer screening [facility] Evaluation + Plan note* Assessment & Plan Note - Ivonne Henry MD - 10/05/2023 4:57 PM EDTAssociated Problem(s): BPH (benign prostatic hyperplasia) Continuing Flomax. After shared decision making, elected to pursue PSA screening. This was found ria elevated and will repeat in 6-8 weeks. If still elevated, plan for urology referral [facility]04-29-2024 Evaluation + Plan note* Assessment & Plan Note - Ivonne Henry MD - 10/05/2023 4:56 PM EDTAssociated Problem(s): Essential hypertension Blood pressure is well controlled.Updating chem 6. Continuing current regimen. [facility] Telephone encounter Note* Telephone Encounter - Latisha Buchanan RN - 10/05/2023 4:47 PM EDT Spoke with patient, he voices understanding. [facility]04-29-2024 Miscellaneous Notes* Telephone Encounter - Latisha Buchanan RN - 10/05/2023 4:47 PM EDT Spoke with patient, he voices understanding. * Telephone Encounter - Ivonne Henry MD - 10/05/2023 4:38 PM EDT Please, let Mr. Turcios know that I have discussed his case with Dr. Alfaro from [facility] clinic. He is working to get him in later this week or next and we have agreed to wait until he gets seen to adjusthis neuropathic agents further as we anticipate starting suboxone at that time. * Telephone Encounter - Latisha Buchanan RN - 10/05/2023 9:25 AM EDT Spoke with patient, he is aware of results/recommendations. Provided number for patient to schedule PFT, Lung Ca Screening, and spine center. He should receivecall to schedule with [facility]. He states he is almost out of the gabapentin and thought that something milder was going to be called in but isn't for sure if Dr. Henry was waiting until he followed up with the referrals. Will forward to PCP to review. ----- Message from Ivonne Henry MD sent at 10/05/2023 9:07 AM EDT ----- Please call Wolf to provide update that his PSA was elevated. We will need to recheck this number in 6-8 weeks and if it is still high then he will need to see urology to discuss next steps. [facility] Evaluation + Plan note* Assessment & Plan Note - Ivonne Henry MD - 10/05/2023 4:46 PM EDTAssociated Problem(s): Cocaine abuse in remission Stable, encouraged sustained remission [facility]04-29-2024 Evaluation + Plan note* Assessment & Plan Note - Ivonne Henry MD - 10/05/2023 4:45 PM EDTAssociated Problem(s): Tobacco abuse Tobacco Cessation Plan: I provided tobacco cessation counseling. He is not ready to quit. Counseling was provided. [facility]04-29-2024 Evaluation + Plan note* Assessment & Plan Note - Ivonne Henry MD - 10/05/2023 4:44 PM EDTAssociated Problem(s): DU (perforated duodenal ulcer) Stable, continue PPI [facility]04-29-2024 Evaluation + Plan note* Assessment & Plan Note - Ivonne Henry MD - 10/05/2023 4:42 PM EDTAssociated Problem(s): PUD (peptic ulcer disease) Continue omeprazole, updating H pylori testing. [facility] Telephone encounter Note* Telephone Encounter - Ivonne Henry MD - 10/05/2023 4:38 PM EDT Please, let Mr. Turcios know that I have discussed his case with Dr. Alfaro from [facility] clinic. He is working to get him in later this week or next and we have agreed to wait until he gets seen to adjusthis neuropathic agents further as we anticipate starting suboxone at that time. [facility]04-29-2024 Telephone encounter Note* Telephone Encounter - Latisha Buchanan RN - 10/05/2023 9:25 AM EDT Spoke with patient, he is aware of results/recommendations. Provided number for patient to schedule PFT, Lung Ca Screening, and spine center. He should receivecall to schedule with [facility]. He states he is almost out of the gabapentin and thought that something milder was going to be called in but isn't for sure if Dr. Henry was waiting until he followed up with the referrals. Will forward to PCP to review. ----- Message from Ivonne Henry MD sent at 10/05/2023 9:07 AM EDT ----- Please call Wolf to provide update that his PSA was elevated. We will need to recheck this number in 6-8 weeks and if it is still high then he will need to see urology to discuss next steps. [facility]04-26-2024 Evaluation + Plan note* Assessment & Plan Note - Ivonne Henry MD - 10/02/2023 3:24 PM EDTAssociated Problem(s): Other emphysema Updating PFTs and CT lung cancer screening [facility]04-26-2024 History of Present illness Narrative* Ivonne Henry MD - 10/02/2023 2:40 PM EDT Date of Encounter: 10/02/23 Chief Complaint: The patient is a 63 y.o. male who presents today for New Patient (Eyes constantly runs). History of Present Illness: Problem Bph (Benign Prostatic Hyperplasia) On Flomax. Ddd (Degenerative Disc Disease), Lumbar Complains of persistent, severe left hip pain with radicular symptoms. Reports decreased sensation along left lower extremity most prominent in the thigh both medially along the groin and extending along the anterior and lateral surface of the hip. He denies saddle anesthesia with involvement of the right side, bowel/bladder incontinence. He is having pain that is limiting movement, but denies true weakness. Reports longstanding history of these symptoms but they are gradually worsening. Lumbar MRI (: L1-L2: Mild disc height loss and desiccation. No neural foraminal narrowing or spinal canal stenosis. L2-L3: Disc height and signal maintained. No neural foraminal narrowing or spinal canal stenosis. L3-L4: Mild disc height loss and desiccation. No neural foraminal narrowing. Mild spinal canal stenosis secondary to disc bulge and mild facet and ligamentum flavum hypertrophy. L4-L5: Moderate disc height loss and desiccation. Mild left neural foraminal narrowing secondary todisc bulge and facet hypertrophy. No right neural foraminal narrowing. Moderate spinal canal stenosis and severe left lateral recess narrowing secondary to disc bulge and left greater than right facet and ligamentum flavum hypertrophy with compression of the traversing left L5 nerve root. L5-S1: Mild disc height loss and desiccation. No neural foraminal narrowing or spinal canal stenosis. Mild left greater than right facet hypertrophy. Status Post Right Hip Replacement Illiterate Opioid Dependence Pud (Peptic Ulcer Disease) Reports medication related, but chart review shows hx of H pylori infection treated with triple therapy. No clearance confirmed. On omeprazole 20 mg daily. Reports reflux symptoms infrequently Tobacco Abuse Smoking 7-8 cigarettes per day. Smoking since 9 years old. Cocaine Abuse in Remission Hx of crack cocaine abuse. Reports sustained remission for many years after finding God in his life. Other Emphysema On trelegy, albuterol PRN, and duonebs PRN Has PRN oxygen as needed Thoracic Aortic Aneurysm Without Rupture CT pulm arteries done 12/13/17: No acute pulmonary artery embolism. Emphysema. Ascending aortic aneurysm 4.1 cm. He has had multiple Cts obtained since that time without signs of aneurysm, but aortic root visualization was limited by motion in dedicated evaluation Echo (2018) without signs of aortic root dysfunction or aneyrsum. Bilateral Hip Pain Last Assessment & Plan: Patient has been following with his PCP and the plan is for hip surgery. He has been prescrived vicodin since October 2019 and end of feb he lost medication so his provider started on him on suboxone to prevent any withdrawals and help with pain. He denies any misuse of opioids. He discarded all buprenorphine because it caused nausea and vomiting. He denies any withrawals from opioids. Du (Perforated Duodenal Ulcer) S/p ex lap with esau patch for perforated duodenal ulcer (10/23/27) Essential Hypertension Medications: Lisinopril 30 mg daily, Lasix 20 mg daily BP Readings from Last 3 Encounters: 10/02/23 108/64 05/25/19 139/83 03/07/19 (!) 153/93 Colon Cancer Screening (Resolved) Added automatically from request for surgery [id number] Past Medical History: He has a past medical history of Cocaine use, COPD (chronic obstructive pulmonary disease), Essential hypertension (01/10/2017), Sciatica, TIA (transient ischemic attack) (01/2017), and Tobacco use. He has no past medical history of Congestive heart failure, unspecified, Diabetes mellitus, or Renal disease. Past Surgical History: He has a past surgical history that includes finger surgery (2007) and laparotomy exploratory (N/A,10/12/2017). Social History: He reports that he has been smoking. He has never used smokeless tobacco. He reports current alcohol use. He reports current drug use. Frequency: 3.00 times per week. Drug: Cocaine. Social History Social History Narrative Homeless for last 2-3 years. 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 Precontemplative regarding quitting tobacco/cocaine. Family History: family history includes Alcoholism in his father; Stroke in his father; Uterine Cancer in his mother. Allergies Allergen Reactions Ira Lofton Current Outpatient Medications Medication Sig Dispense Refill albuterol 108 (90 Base) MCG/ACT Aero Soln inhaler Inhale 1 puff by mouth every 6 hours as needed for wheezing. 18 g 0 ClearLax 17 GM/SCOOP Powder powder Cyclobenzaprine 10 MG tablet Take 1 tablet by mouth 2 times daily as needed for Muscle spasms. docusate 100 MG capsule Take 1 capsule by mouth 2 times daily as needed for Constipation. furOSEmide 20 MG tablet Take 1 tablet by mouth daily. Gabapentin 300 MG capsule Take 1 capsule by mouth 3 times daily as needed for Other (pain). R guaiFENesin 600 MG Tab SR 12 HR tablet SR Take 1 tablet by mouth 2 times daily as needed for Cold Symptoms or Cough. Lisinopril 10 MG tablet Take 1 tablet by mouth daily. Lisinopril 20 MG tablet Take 1 tablet by mouth daily. Total 30 mg daily Loratadine 10 MG tablet Take 1 tablet by mouth Every morning as needed. Nystatin 826551 UNIT/ML oral suspension Swish and swallow 10 mL 4 times daily. omeprazole [address] capsule Take 1 capsule by mouth daily. Potassium chloride 20 MEQ Tab CR tablet Take 1 tablet by mouth daily. Tamsulosin HCl 0.4 MG capsule Take 1 capsule by mouth daily. Trelegy Ellipta 100-62.5-25 MCG/ACT Aerosol Powder, breath activated inhaler Inhale 1 puff daily. Ipratropium-albuterol 0.5-2.5 (3) MG/3ML nebulizer solution Take 3 mL by nebulization every 6 hoursas needed for Shortness of Breath. prednisoLONE-Moxifloxacin 1-0.5 % Solution Apply to eye. No current facility-administered medications for this visit. Immunization History Administered Date(s) Administered [id number] COVID-19 monovalent vaccine, mRNA, Pfizer, 0.3 ML 12/07/2020 Influenza, injectable, quadrivalent, preservative free 05/25/2019 Review of Systems: Review of Systems Physical Exam: Blood pressure 108/64, pulse 91, temperature 97.7 F (36.5 C), temperature source Infrared, height 1.854 m (6' 1), weight 62.1 kg (137 lb), SpO2 93%. Physical Exam Vitals reviewed. Cardiovascular: Rate and Rhythm: Normal rate and regular rhythm. Pulmonary: Comments: Prolonged respiratory phase, decreased air movement bilaterally Skin: General: Skin is warm and dry. Neurological: Mental Status: He is alert. Comments: Decreased sensation to light touch throughout left thigh both along medial, lateral, and anterior surface. Hip flexion limited by pain. He has at least 4/5 strength with knee flexion/extension, plantar flexion, dorsiflexion, but pain limits full movement. Unable to lift hip to 180 degrees when lying flat from pain. Passive leg raise elicits radicular pain. 2+ achilles and patellar reflexes. Equivacol Babinski. Additional Labs/Imaging/Records: personally reviewed on day of encounter Assessment and Plan: Other emphysema Updating PFTs and CT lung cancer screening PUD (peptic ulcer disease) Continue omeprazole, updating H pylori testing. DU (perforated duodenal ulcer) Stable, continue PPI Tobacco abuse Tobacco Cessation Plan: I provided tobacco cessation counseling. He is not ready to quit. Counseling was provided. Cocaine abuse in remission Stable, encouraged sustained remission Essential hypertension Blood pressure is well controlled.Updating chem 6. Continuing current regimen. BPH (benign prostatic hyperplasia) Continuing Flomax. After shared decision making, elected to pursue PSA screening. This was found ria elevated and will repeat in 6-8 weeks. If still elevated, plan for urology referral DDD (degenerative disc disease), lumbar Neurogenic claudication present, it appears that pain and sensory involvement is the predominant feature, but will send for stat spine clinic evaluation given the severity of disease on MRI in 2021. We discussed reasons for emergent evaluation including weakness, sensory loss in the groin and extending to the right side and loss of control of bowels/bladder. Regarding pain management, he has done well previously on suboxone for treatment of chronic pain syndrome. Connecting to PCAM clinic to discuss re initiation/titration Gallbladder dysfunction? Exploring a gallbladder issue at prior hospital, but does not have details. Will start by updating LFTs. Requesting [facility] to determine next steps. ICD-10-CM 1. Other emphysema J43.8 PFT STANDARD 2. PUD (peptic ulcer disease) K27.9 H. PYLORI WITH CLARITHROMYCIN RESISTANCE PREDICTION, PCR 3. Cocaine abuse in remission F14.11 AMB REFERRAL TO ADDICTION MEDICINE 4. Neurogenic claudication R29.818 AMB REFERRAL TO COMPREHENSIVE SPINE CENTER CANCELED: AMB REFERRAL TO COMPREHENSIVE SPINE CENTER 5. Tobacco abuse Z72.0 AMB REFERRAL TO LUNG CANCER SCREENING CLINIC 6. Opioid use disorder in remission F11.91 AMB REFERRAL TO ADDICTION MEDICINE 7. Health care maintenance Z00.00 CHEM 6 (LYTES, BUN CREA) HEMOGLOBIN A1C LIPID PANEL W CALCULATED LDL HEPATIC FUNCTION PANEL PSA, SCREENING PFT STANDARD 8. Primary hypertension I10 CHEM 6 (LYTES, BUN CREA) MAGNESIUM 9. Encounter for screening for lung cancer Z12.2 AMB REFERRAL TO LUNG CANCER SCREENING CLINIC 10. Cataract, unspecified cataract type, unspecified laterality H26.9 AMB REFERRAL TO OPHTHALMOLOGY 11. Elevated PSA R97.20 PSA, SCREENING 12. DU (perforated duodenal ulcer) K26.5 13. Essential hypertension I10 14. Benign prostatic hyperplasia, unspecified whether lower urinary tract symptoms present N40.0 15. DDD (degenerative disc disease), lumbar M51.36 Requested Prescriptions No prescriptions requested or ordered in this encounter I spent 44 min on this visit on the day of the encounter Patient to return to clinic in 2 months to follow up regarding physical. Ivonne Henry MD Clinical Chief Librarian Circulation Department Division of General Internal Medicine [facility] Instructions* Patient Instructions* Ivonne Henry MD - 10/02/2023 2:40 PM EDT - Get updated labs on 2nd floor - PFTs ordered - PCAM consult for addiction medicine - Spine center referral - Lung cancer screening - Ophthalmology consult [facility] Note* Quick Note - Inge Chavez RN - 08/21/2021 2:55 PM EDT AVS reviewed with patient: yes Including new/changed medications, signs/symptoms, & when to call 911: yes Chart checked for prescriptions, home medications/security items: yes All remaining immunizations given prior to d/c: yes Does patient have transportation for discharge: yes, cab called through insurance Was wheelchair requested to transport pt to main lobby: no pt declined Medications removed from med drawer & med drawer locked: yes Discharge instructions given to patient, all questions answered. Pt verbalizes understanding.Peripheral IV removed.Patient has all belongings. [id number] Miscellaneous Notes* Quick Note - Inge Chavez RN - 08/21/2021 2:55 PM EDT AVS reviewed with patient: yes Including new/changed medications, signs/symptoms, & when to call 911: yes Chart checked for prescriptions, home medications/security items: yes All remaining immunizations given prior to d/c: yes Does patient have transportation for discharge: yes, cab called through insurance Was wheelchair requested to transport pt to main lobby: no pt declined Medications removed from med drawer & med drawer locked: yes Discharge instructions given to patient, all questions answered. Pt verbalizes understanding.Peripheral IV removed.Patient has all belongings. * Quick Note - Fabiola Armstrong RN - 08/20/2021 12:43 AM EDT Patient oriented to the 9th floor: yes Patient oriented to room and call system: yes Appropriate Wrist bands present: yes Dual RN skin check off with: Dannie BELLhydrocrane operator Consult needed?: no Visitor Identified and documented: no visitor Patient belongings documented: yes What Belongings are present?: Clothing, cellphone Discharge Plan reviewed with patient: yes How will the patient get home when discharged: Care Management consult needed?: no * ED Attestation Note - Paige Perla MD - 08/19/2021 5:48 PM EDT ED Attestation This visit was performed by both a physician and an APC. I personally evaluated and examined the patient. I performed all aspects of the MDM as documented. 61-year-old male with a history of COPD presents the ED with medics with shortness of breath for the past several days. Patient states that he has had productive white phlegm with his cough recently.States that he believes his COPD is flaring up. States that he has oxygen at home that he uses intermittently, has been using it more often the last 2 days. Denies any fevers, chills, nausea or vomiting. Denies any chest pain. On my evaluation, patient appears in no acute distress. Hemodynamically tachypneic, tachycardic andhypertensive with other vitals within normal limits. Heart is tachycardic rate and sinus rhythm. Lungs are wheezy to auscultation bilaterally, with moderate distress with retractions, prolonged expiratory phase. No rales. Abdomen is soft, nontender, nondistended. Neurologically patient is awake, alert oriented x3, and nonfocal. At this time, the patient was saturating 97% on nonrebreather mask. He was given DuoNeb breathing treatments along with steroids. Basic blood work will be obtained. Chest x-ray will be obtained. On reevaluation, patient's blood work showed elevated white count of 22. His VBG showed no acute findings. Chest x-ray is clear. The patient felt much improved with his breathing after receiving DuoNeb treatments along with albuterol nebulizer. He is breathing more comfortably, no longer tachypneic. He will be admitted for COPD exacerbation to the medicine service. He is agreeable plan of care. He will be admitted stable condition 35 minutes of constant critical care time were spent on this patient, excluding any time for other billable procedures. XR Chest 1 View Final Result 1. No acute cardiopulmonary process identified. Workstation ID: [id number] Recent Results (from the past 12 hour(s)) NT Pro BNP Collection Time: 08/19/21 5:14 PM Result Value Ref Range NT-Pro BNP 67 0 - 300 pg/mL Troponin Collection Time: 08/19/21 5:14 PM Result Value Ref Range Troponin T 15 <=22 ng/L Troponin T Interpretation Normal BMP Collection Time: 08/19/21 5:14 PM Result Value Ref Range Sodium 137 135 - 145 mmol/L Potassium 4.1 3.5 - 5.1 mmol/L Chloride 97 (L) 98 - 108 mmol/L Bicarbonate 29 21 - 32 mmol/L Anion Gap 15 10 - 20 mmol/L Glucose 110 (H) 65 - 99 mg/dL BUN 10 8 - 25 mg/dL Creatinine 0.95 0.80 - 1.30 mg/dL eGFR 86 >=60 mL/min/1.73 m2 BUN/Creatinine Ratio 10.5 10.0 - 20.0 Calcium 9.0 8.4 - 10.2 mg/dL CBC Auto Differential Collection Time: 08/19/21 5:14 PM Result Value Ref Range WBC 22.43 (H) 4.50 - 11.00 K/mcL RBC 4.95 4.50 - 5.90 M/mcL Hemoglobin 15.9 13.5 - 17.5 g/dL Hematocrit 47.5 41.0 - 53.0 % MCV 96.0 80.0 - 100.0 fL MCH 32.1 26.0 - 34.0 pg MCHC 33.5 31.0 - 37.0 g/dL Platelets 346 150 - 400 K/mcL RDW - CV 13.2 11.6 - 14.8 % MPV 8.9 (L) 9.4 - 12.4 fL Neutrophils 86.3 % Lymphocytes 6.1 % Monocytes 5.8 % Eosinophils 0.3 % Basophils 0.5 % IG Percent 1.00 % Neutrophils Abs 19.36 (H) 1.70 - 7.00 K/mcL Lymphocytes Abs 1.36 0.90 - 4.00 K/mcL Monocytes Abs 1.31 (H) 0.30 - 0.90 K/mcL Eosinophils Abs 0.06 0.00 - 0.50 K/mcL Basophils Abs 0.11 0.00 - 0.30 K/mcL IG Absolute 0.23 0.00 - 0.30 K/mcL Nucleated RBC 0.0 % Nucleated RBC Abs 0.00 0.00 - 0.00 K/mcL Blood Gas, Venous with Full Panel Collection Time: 08/19/21 5:48 PM Result Value Ref Range pH, Venous 7.37 7.32 - 7.42 pCO2, Edison 53.7 (H) 41.0 - 51.0 mm Hg pO2, Edison 36 25 - 40 mm Hg HCO3, Edison 29.9 (H) 24.0 - 28.0 mmol/L Base Excess, Edison 3.5 (H) -2.0 - 2.0 O2 Sat, Edison 63.1 40.0 - 70.0 % Hemoglobin, Blood Gas 16.0 13.5 - 17.5 g/dL Hematocrit, Calculated 49.0 41.0 - 53.0 % O2 Hb 61.0 No established reference range % Carboxyhemoglobin 2.9 (H) <=1.5 % of total Hb Methemoglobin 0.5 0.0 - 2.0 % Sodium 139 135 - 145 mmol/L Potassium 4.1 3.5 - 5.1 mmol/L Ionized Calcium 4.6 4.5 - 5.3 mg/dL Glucose 94 65 - 99 mg/dL Lactic Acid 1.6 0.6 - 2.0 mmol/L . * ED Procedure Note - Paige Perla MD - 08/19/2021 5:32 PM EDTAssociated Order(s): EKG 12-lead EKG 12-lead Date/Time: 08/19/2021 5:32 PM Performed by: Paige Perla MD Authorized by: Zoe Moreira CNP Interpreted by ED attending physician Rhythm: sinus rhythm and sinus tachycardia BPM: 120 Conduction: conduction normal ST Segments: ST segments normal T Flattening: I and V2 Clinical impression: abnormal ECG and sinus tachycardia documented in this [id number] Consult note* KIYA Aguirre - 08/21/2021 11:18 AM EDTAssociated Order(s): IP CONSULT TO CARE MANAGEMENT CLAUDIO consulted to assist with transport home for pt. Pt can utilize his insurance by calling . CLAUDIO updated treatment team. [id number] Consult note* KIYA Aguirre - 08/21/2021 11:18 AM EDT Associated Order(s): IP CONSULT TO CARE MANAGEMENT CLAUDIO consulted to assist with transport home for pt. Pt can utilize his insurance by calling . CLAUDIO updated treatment team. documented in this [id number] Hospital course Narrative* Pablo Davila, DO - 08/21/2021 10:27 AM EDT Images from the original note were not included. [facility] DISCHARGE SUMMARY Wolf Turcios Admitted: 08/19/2021 Discharge Date: 08/21/21 PCP Handoff Recommended Outpatient Testing None Results Pending At Discharge None Clinical Summary Wolf Turcios is a 61 y.o. male patient of Karma Mark CNP with history of COPD, hypertension, smoking presented with shortness of breath. Acute respiratory failure with hypoxia, resolved On room air at baseline, has occasional O2 prn, requiring 3L O2 NC on admission Secondary to COPD exacerbation Weaned to room air (08/20) Resolved COPD exacerbation Afebrile, leukocytosis to 22k on admission, improved to 15k, now back up to 22k (likely increasing again due to steroids) CTPA (08/19) negative for PE, showed extensive diffuse centilobar emphysema, mild areas of patchy opacities in L mid to lower lung which could represent fibrosis Urine antigens negative S/P Solumedrol, transition to prednisone Continue Azithro x 5 days Continue Symbicort, duonebs Elevated D-dimer CTPA negative for PE Hypertension Continue home HCTZ Substance use disorder, in remission Continue home Suboxone Tobacco abuse Smokes 4-5 cigarettes daily Encouraged cessation NRT ordered Discharge Medications Discharge Medications New Medications Details azithromycin 250 MG tablet Commonly known as: ZITHROMAX Start taking on: August 22, 2021 Take 1 (one) tablet (250 mg total) by mouth daily for 3 days Start: 08/22/21. Quantity: 3 tablet benzonatate 100 MG capsule Commonly known as: TESSALON Take 1 (one) capsule (100 mg total) by mouth 3 (three) times a day as needed for cough . Quantity: 20 capsule predniSONE 20 MG tablet Commonly known as: DELTASONE Start taking on: August 22, 2021 Take 2 (two) tablets (40 mg total) by mouth daily for 4 days Start: 08/22/21. Quantity: 8 tablet Modified Medications Details * albuterol 2.5 mg /3 mL (0.083 %) nebulizer solution Commonly known as: PROVENTIL What changed: Another medication with the same name was changed. Make sure you understand how and when to take each. Another medication with the same name was removed. Continue taking this medication, and follow the directions you see here. Take 3 mL (2.5 mg total) by nebulization every 4 (four) hours as needed for wheezing Dx: J44.0 . Quantity: 540 mL * albuterol 90 mcg/actuation inhaler What changed: when to take this reasons to take this Another medication with the same name was removed. Continue taking this medication, and follow the directions you see here. Inhale 2 (two) puffs every 6 (six) hours as needed for wheezing, cough or shortness of breath . Quantity: 18 g * There are duplicate medications prescribed to the patient Medications To Continue Details acetaminophen 500 mg capsule Take 500 mg by mouth every 8 (eight) hours as needed for pain . budesonide-formoteroL 160-4.5 mcg/actuation inhaler Commonly known as: SYMBICORT Inhale 2 (two) puffs 2 (two) times a day . Quantity: 1 each buprenorphine-nalOXone 8-2 mg Film Commonly known as: SUBOXONE Place 1 each under the tongue 2 (two) times a day . cyclobenzaprine 10 MG tablet Commonly known as: FLEXERIL Take 10 mg by mouth every 12 (twelve) hours as needed for muscle spasms . docusate sodium 100 MG capsule Commonly known as: COLACE Take 100 mg by mouth 2 (two) times a day . guaiFENesin 600 mg 12 hr tablet Commonly known as: MUCINEX Take 1 (one) tablet (600 mg total) by mouth 2 (two) times a day as needed . Quantity: 60 tablet hydroCHLOROthiazide 12.5 MG tablet Commonly known as: HYDRODIURIL Take 12.5 mg by mouth every morning . loratadine 10 mg tablet Commonly known as: CLARITIN Take 10 mg by mouth every morning . melatonin 3 mg Tab Take 3 mg by mouth nightly . montelukast 10 mg tablet Commonly known as: SINGULAIR Take 1 (one) tablet (10 mg total) by mouth nightly . Quantity: 30 tablet nicotine 14 mg/24 hr Commonly known as: NICODERM CQ Place 1 (one) patch on the skin daily . Quantity: 30 patch Spiriva Respimat 2.5 mcg/actuation Mist Generic drug: tiotropium bromide Inhale 5 mcg every morning . tamsulosin 0.4 mg capsule Commonly known as: FLOMAX Take 0.4 mg by mouth every morning before breakfast . traZODone 50 MG tablet Commonly known as: DESYREL Take 100 mg by mouth nightly . Stopped Medications Dulera 200-5 mcg/actuation Hfaa Generic drug: mometasone-formoterol furosemide 20 MG tablet Commonly known as: LASIX gabapentin 300 MG capsule Commonly known as: Neurontin potassium chloride SA 20 MEQ tablet Commonly known as: AMMY BONILLA Physician(s) Follow Up: [facility] [address] [place] [address] Follow up Please call for hospital related questions Condition at Discharge: Good Disposition: Home On day of discharge, I performed a final bedside evaluation including a physical exam. I reviewed discharge recommendations with the patient in person. Patient instructions, including activity, were given to the patient/family at discharge. Time spent on discharge: > 30 minutes Completed by: Pablo Davila on 08/21/21, 10:27 AM documented in this [id number] History of Present illness Narrative* Pablo Davila DO - 08/21/2021 6:32 AM EDT [facility] PROGRESS NOTE Assessment and Plan Wolf Turcios is a 61 y.o. male patient of Karma Mark CNP with history of COPD, hypertension, smoking presented with shortness of breath. Acute respiratory failure with hypoxia, resolved On room air at baseline, has occasional O2 prn, requiring 3L O2 NC on admission Secondary to COPD exacerbation Weaned to room air (08/20) Resolved COPD exacerbation Afebrile, leukocytosis to 22k on admission, improved to 15k, now back up to 22k (likely increasing again due to steroids) CTPA (08/19) negative for PE, showed extensive diffuse centilobar emphysema, mild areas of patchy opacities in L mid to lower lung which could represent fibrosis Urine antigens negative S/P Solumedrol, transition to prednisone Continue Azithro x 5 days Continue Symbicort, duonebs Elevated D-dimer CTPA negative for PE Hypertension Continue home HCTZ Substance use disorder, in remission Continue home Suboxone Tobacco abuse Smokes 4-5 cigarettes daily Encouraged cessation NRT ordered Family Contact Information Code Status: Full Code Quality Measures DVT Prophylaxis: - enoxaparin (LOVENOX) syringe 40 mg Foy Catheter: None Disposition Discharge Location: Home Estimated Discharge Date: 08/21 Outpatient Testing: None Subjective Pt states he feels much better. Cough and shortness of breath improved. Wants to go home. Review of Systems All systems have been reviewed and are negative except as noted in HPI or below Objective BP (!) 152/93 (BP Location: Right arm, Patient Position: Sitting) Pulse (!) 102 Temp 97.7 F (36.5 C) (Oral) Resp 14 SpO2 95% Physical Examination General Appearance: alert; well appearing; in no acute distress HEENT: Head- normocephalic; Eyes- EOMI, sclera anicteric; Ears- hearing intact; Nose- no nasal discharge; Throat- mucous membranes moist Cardiovascular: regular rate and rhythm; normal S1, S2; no murmurs, rubs, clicks or gallops; no peripheral edema Respiratory: lungs diminished but otherwise clear; without wheezes, rales or rhonchi; on room air Abdomen: soft, non-tender, non-distended; positive bowel sounds Neurological: oriented x 3; normal speech; no focal neuro deficits Musculoskeletal: no significant deformity or tenderness to palpation Skin: normal coloration; no obvious rashes, lesions or skin breakdown Psych: normal mood and affect Results/Medications Reviewed 08/21/2021 6:32 AM Laboratory, Microbiology, Radiology, Medications and Transcriptions * Pablo Davila DO - 08/20/2021 6:35 AM EDT [facility] PROGRESS NOTE Assessment and Plan Wolf Turcios is a 61 y.o. male patient of Karma Mark CNP with history of COPD, hypertension, smoking presented with shortness of breath. Acute respiratory failure with hypoxia, resolved On room air at baseline, has occasional O2 prn, requiring 3L O2 NC on admission Secondary to COPD exacerbation Weaned to room air (08/20) Resolved COPD exacerbation Afebrile, leukocytosis to 22k on admission CTPA (08/19) negative for PE, showed extensive diffuse centilobar emphysema, mild areas of patchy opacities in L mid to lower lung which could represent fibrosis Urine antigens negative S/P Solumedrol, transition to prednisone Continue Azithro x 5 days Continue Symbicort, duonebs Elevated D-dimer CTPA negative for PE Hypertension Continue home HCTZ Substance use disorder, in remission Continue home Suboxone Tobacco abuse Smokes 4-5 cigarettes daily NRT ordered Family Contact Information Code Status: Full Code Quality Measures DVT Prophylaxis: - enoxaparin (LOVENOX) syringe 40 mg Foy Catheter: None Disposition Discharge Location: Home Estimated Discharge Date: 08/21 Outpatient Testing: None Subjective Pt states he feels much better. Cough and shortness of breath improved. Denies chest pain. Review of Systems All systems have been reviewed and are negative except as noted in HPI or below Objective BP 107/69 Pulse (!) 103 Temp 98.4 F (36.9 C) (Oral) Resp 18 SpO2 91% Physical Examination General Appearance: alert; well appearing; in no acute distress HEENT: Head- normocephalic; Eyes- EOMI, sclera anicteric; Ears- hearing intact; Nose- no nasal discharge; Throat- mucous membranes moist Cardiovascular: regular rate and rhythm; normal S1, S2; no murmurs, rubs, clicks or gallops; no peripheral edema Respiratory: lungs diminished but otherwise clear; without wheezes, rales or rhonchi; on room air Abdomen: soft, non-tender, non-distended; positive bowel sounds Neurological: oriented x 3; normal speech; no focal neuro deficits Musculoskeletal: no significant deformity or tenderness to palpation Skin: normal coloration; no obvious rashes, lesions or skin breakdown Psych: normal mood and affect Results/Medications Reviewed 08/20/2021 6:35 AM Laboratory, Microbiology, Radiology, Medications and Transcriptions documented in this [id number] Note* Quick Note - Fabiola Armstrong RN - 08/20/2021 12:43 AM EDT Patient oriented to the 9th floor: yes Patient oriented to room and call system: yes Appropriate Wrist bands present: yes Dual RN skin check off with: Dannie BELLhydrocrane operator Consult needed?: no Visitor Identified and documented: no visitor Patient belongings documented: yes What Belongings are present?: Clothing, cellphone Discharge Plan reviewed with patient: yes How will the patient get home when discharged: Care Management consult needed?: no [id number] Emergency department Note* Gregory Harrington RN - 08/19/2021 8:57 PM EDT Awaiting CTPA result before bringing up [id number] Emergency department Note* Gregory Harrington RN - 08/19/2021 8:57 PM EDT Awaiting CTPA result before bringing up * Zoe Moreira CNP - 08/19/2021 7:10 PM EDT ED PROVIDER NOTE [facility] ONCOLOGY/SURGERY NAME: Wolf Turcios AGE: 61 y.o. : 1960 VISIT DATE: 08/19/2021 CSN: [id number] PCP: Karma Mark CNP Chief Complaint Patient presents with Shortness of Breath HPI Very pleasant 61-year-old male history of COPD, peptic ulcer disease, prior cocaine use, presentingtoday with complaints of shortness of breath and chest pain. He states he believes he is having a COPD exacerbation. States for last 2weeks he has been short of breath. Initially he was placed on antibiotics without steroids. He states he finished these. He states yesterday developed worsening shortness of breath. States he is having right-sided chest pain that is constant does not radiate to hisarms neck or jaw. Nothing makes the chest pain worse. Denies nausea vomiting diaphoresis. States heis coughing more than usual with white-colored phlegm. Denies abdominal pain nausea or vomiting. Sta melvin at baseline he wears 3 to 5 L of oxygen. He states he has not used or had any breathing treatments recently. Denies leg pain swelling. Denies PE DVT history. Past Medical History: Diagnosis Date Arthritis Asthma Cataract Bilat- s/p Right eye laser Chest pain +ED 09/21/20- Troponin and Chest CT-Neg for PE showed pneuomia and emphysema Cocaine abuse in remission ([facility]) None since 2015- now on suboxone COPD (chronic obstructive pulmonary disease) ([facility]) Multiple ED visits- last 08/2020 Edema BLE + ED visit 07/25/20 Emphysema of lung ([facility]) Severe Essential hypertension 01/10/2017 Hyperlipidemia Neck pain Peptic ulcer disease PUD (peptic ulcer disease) Sepsis due to pneumonia ([facility]) 04/2020 Multiple ED visits- last 08/2020. Saw Pulm Dr Hollis while IP 04/20/20 Thoracic aortic aneurysm ([facility]) States d/t drug overdose TIA (transient ischemic attack) Tobacco abuse Past Surgical History: Procedure Laterality Date ARTHROPLASTY HIP TOTAL Right 01/28/2021 Procedure: RIGHT TOTAL HIP ARTHROPLASTY; Surgeon: Teresa Terry MD; Location: [facility] OR; Service: Orthopedic EYE SURGERY Right Laser for cataract GASTRIC ULCER PERFORATION REPAIR Family History Problem Relation Age of Onset Diabetes Mother Diabetes Father Throat cancer Sister Heart attack Maternal Grandmother Pulmonary embolism Neg Hx Deep vein thrombosis Neg Hx Clotting disorder Neg Hx Heart disease Neg Hx Anesthesia problems Neg Hx Surgical complications Neg Hx Social History Socioeconomic History Marital status: Single Tobacco Use Smoking status: Current Every Day Smoker Packs/day: 0.25 Years: 39.00 Pack years: 9.75 Types: Cigarettes Start date: 01/19/1969 Smokeless tobacco: Never Used Tobacco comment: Trying to cut back, 6 cigs per day Vaping Use Vaping Use: Never used Substance and Sexual Activity Alcohol use: Not Currently Comment: 1 beer per month Drug use: Not Currently Types: Crack cocaine Comment: H/o Sober since 2016- now on suboxone Previous Medications Medication Sig acetaminophen 500 mg capsule Take 500 mg by mouth every 8 (eight) hours as needed for pain . albuterol (PROVENTIL) 2.5 mg /3 mL (0.083 %) nebulizer solution Take 3 mL (2.5 mg total) by nebulization every 4 (four) hours as needed for wheezing Dx: J44.0 . albuterol 90 mcg/actuation inhaler Inhale 2 puffs every 6 (six) hours as needed for wheezing . budesonide-formoteroL (SYMBICORT) 160-4.5 mcg/actuation inhaler Inhale 2 (two) puffs 2 (two) times a day . buprenorphine-nalOXone (SUBOXONE) 8-[address] 1 each under the tongue 2 (two) times a day . cyclobenzaprine (FLEXERIL) 10 MG tablet Take 10 mg by mouth every 12 (twelve) hours as needed for muscle spasms . docusate sodium (COLACE) 100 MG capsule Take 100 mg by mouth 2 (two) times a day . furosemide (LASIX) 20 MG tablet Take 20 mg by mouth every morning . guaiFENesin (MUCINEX) 600 mg 12 hr tablet Take 600 mg by mouth 2 (two) times a day as needed . hydroCHLOROthiazide (HYDRODIURIL) 12.5 MG tablet Take 12.5 mg by mouth every morning . loratadine (CLARITIN) 10 mg tablet Take 10 mg by mouth every morning . melatonin 3 mg Tab Take 3 mg by mouth nightly . mometasone-formoterol (Dulera) 200-5 mcg/actuation HFAA Inhale 2 (two) times a day . montelukast (SINGULAIR) 10 mg tablet Take 1 (one) tablet (10 mg total) by mouth nightly . nicotine (NICODERM CQ) 14 mg/[address] 1 patch on the skin daily . potassium chloride SA (K-DUR,KLOR-CON) 20 MEQ tablet Take 20 mEq by mouth every morning . tamsulosin (FLOMAX) 0.4 mg capsule Take 0.4 mg by mouth every morning before breakfast . tiotropium bromide (Spiriva Respimat) 2.5 mcg/actuation Mist Inhale 5 mcg every morning . traZODone (DESYREL) 50 MG tablet Take 100 mg by mouth nightly . albuterol 90 mcg/actuation inhaler Inhale 2 (two) puffs every 4 (four) hours as needed for wheezing. gabapentin (Neurontin) 300 MG capsule Take one capsule daily x 5 days, then twice daily x 5 days, then three times per day. Contact prescribing office for a refill if effective . [DISCONTINUED] cyanocobalamin, vitamin B-12, (VITAMIN B12 ORAL) Take 1 tablet by mouth daily . Allergies Allergen Reactions Ibuprofen Gives him UTI Codeine Itching Including all derivatives - is well tolerated when taking Benadryl prophylaxis Review of Systems Constitutional: Negative. HENT: Negative for trouble swallowing. Respiratory: Positive for cough, chest tightness and shortness of breath. Cardiovascular: Positive for chest pain. Negative for palpitations and leg swelling. Gastrointestinal: Negative for abdominal pain, nausea and vomiting. Genitourinary: Negative for difficulty urinating. Musculoskeletal: Negative for myalgias. Skin: Negative. Neurological: Negative for dizziness, syncope and headaches. Psychiatric/Behavioral: Negative for confusion. All other systems reviewed and are negative. Patient Vitals for the past 24 hrs: BP Temp Temp src Pulse Resp SpO2 08/19/21 2153 121/79 98.2 F (36.8 C) Oral (!) 101 -- 95 % 08/19/21 1945 105/78 -- -- (!) 109 (!) 20 93 % 08/19/21 1852 -- -- -- -- (!) 20 -- 08/19/21 1849 118/86 -- -- (!) 112 (!) 27 98 % 08/19/21 1830 -- -- -- (!) 114 (!) 37 98 % 08/19/21 1723 108/83 -- -- -- -- -- 08/19/21 1702 (!) 140/74 98.5 F (36.9 C) Oral (!) 127 (!) 20 97 % Physical Exam Vitals and nursing note reviewed. Constitutional: General: He is not in acute distress. Appearance: Normal appearance. He is well-developed. He is not ill-appearing, toxic-appearing or diaphoretic. HENT: Head: Normocephalic and atraumatic. Eyes: Extraocular Movements: Extraocular movements intact. Cardiovascular: Rate and Rhythm: Tachycardia present. Pulmonary: Effort: Pulmonary effort is normal. Tachypnea present. Breath sounds: Decreased breath sounds and rhonchi present. Abdominal: Palpations: Abdomen is soft. Tenderness: There is no abdominal tenderness. Musculoskeletal: General: Normal range of motion. Right lower leg: No tenderness. No edema. Left lower leg: No tenderness. No edema. Skin: General: Skin is warm and dry. Coloration: Skin is not jaundiced or pale. Neurological: General: No focal deficit present. Mental Status: He is alert. Cranial Nerves: No cranial nerve deficit. Sensory: No sensory deficit. Psychiatric: Mood and Affect: Mood normal. Behavior: Behavior normal. Laboratory & Radiographic Imaging (if done): Results for orders placed or performed during the hospital encounter of 08/19/21 COVID-19, Molecular Specimen: Nasopharyngeal; Swab Result Value Ref Range SARS-CoV-2 Not Detected Not Detected Lavender Top Result Value Ref Range Extra Tube Hold for add-ons. Mint Green Top Result Value Ref Range Extra Tube Hold for add-ons. Gold Top Result Value Ref Range Extra Tube Hold for add-ons. Light Blue Top Result Value Ref Range Extra Tube Hold for add-ons. Munoz Top Result Value Ref Range Extra Tube Hold for add-ons. NT Pro BNP Result Value Ref Range NT-Pro BNP 67 0 - 300 pg/mL Troponin Result Value Ref Range Troponin T 15 <=22 ng/L Troponin T Interpretation Normal BMP Result Value Ref Range Sodium 137 135 - 145 mmol/L Potassium 4.1 3.5 - 5.1 mmol/L Chloride 97 (L) 98 - 108 mmol/L Bicarbonate 29 21 - 32 mmol/L Anion Gap 15 10 - 20 mmol/L Glucose 110 (H) 65 - 99 mg/dL BUN 10 8 - 25 mg/dL Creatinine 0.95 0.80 - 1.30 mg/dL eGFR 86 >=60 mL/min/1.73 m2 BUN/Creatinine Ratio 10.5 10.0 - 20.0 Calcium 9.0 8.4 - 10.2 mg/dL Blood Gas, Venous with Full Panel Result Value Ref Range pH, Venous 7.37 7.32 - 7.42 pCO2, Edison 53.7 (H) 41.0 - 51.0 mm Hg pO2, Edison 36 25 - 40 mm Hg HCO3, Edison 29.9 (H) 24.0 - 28.0 mmol/L Base Excess, Edison 3.5 (H) -2.0 - 2.0 O2 Sat, Edison 63.1 40.0 - 70.0 % Hemoglobin, Blood Gas 16.0 13.5 - 17.5 g/dL Hematocrit, Calculated 49.0 41.0 - 53.0 % O2 Hb 61.0 No established reference range % Carboxyhemoglobin 2.9 (H) <=1.5 % of total Hb Methemoglobin 0.5 0.0 - 2.0 % Sodium 139 135 - 145 mmol/L Potassium 4.1 3.5 - 5.1 mmol/L Ionized Calcium 4.6 4.5 - 5.3 mg/dL Glucose 94 65 - 99 mg/dL Lactic Acid 1.6 0.6 - 2.0 mmol/L D-Dimer, Quantitative Result Value Ref Range D-Dimer 0.54 (H) 0.27 - 0.49 mcg/mL FEU CBC Auto Differential Result Value Ref Range WBC 22.43 (H) 4.50 - 11.00 K/mcL RBC 4.95 4.50 - 5.90 M/mcL Hemoglobin 15.9 13.5 - 17.5 g/dL Hematocrit 47.5 41.0 - 53.0 % MCV 96.0 80.0 - 100.0 fL MCH 32.1 26.0 - 34.0 pg MCHC 33.5 31.0 - 37.0 g/dL Platelets 346 150 - 400 K/mcL RDW - CV 13.2 11.6 - 14.8 % MPV 8.9 (L) 9.4 - 12.4 fL Neutrophils 86.3 % Lymphocytes 6.1 % Monocytes 5.8 % Eosinophils 0.3 % Basophils 0.5 % IG Percent 1.00 % Neutrophils Abs 19.36 (H) 1.70 - 7.00 K/mcL Lymphocytes Abs 1.36 0.90 - 4.00 K/mcL Monocytes Abs 1.31 (H) 0.30 - 0.90 K/mcL Eosinophils Abs 0.06 0.00 - 0.50 K/mcL Basophils Abs 0.11 0.00 - 0.30 K/mcL IG Absolute 0.23 0.00 - 0.30 K/mcL Nucleated RBC 0.0 % Nucleated RBC Abs 0.00 0.00 - 0.00 K/mcL CT Pulmonary Arteries Final Result No evidence of pulmonary embolism. Extensive diffuse centrilobular pulmonary emphysema. Mild areas of patchy opacities are noted in the left mid to lower lung which could represent areas of fibrosis, less likely infectious/inflammatory process. Workstation ID: [id number] XR Chest 1 View Final Result 1. No acute cardiopulmonary process identified. Workstation ID: [id number] Procedures MDM Very pleasant 61-year-old male history of COPD, peptic ulcer disease, prior cocaine use, presentingtoday with complaints of shortness of breath and chest pain. He states he believes he is having a COPD exacerbation. States for last 2weeks he has been short of breath. Initially he was placed on antibiotics without steroids. He states he finished these. He states yesterday developed worsening shortness of breath. States he is having right-sided chest pain that is constant does not radiate to hisarms neck or jaw. Nothing makes the chest pain worse. Denies nausea vomiting diaphoresis. States heis coughing more than usual with white-colored phlegm. Denies abdominal pain nausea or vomiting. Sta melvin at baseline he wears 3 to 5 L of oxygen. He states he has not used or had any breathing treatments recently. Denies leg pain swelling. Denies PE DVT history. On initial exam the patient's alert, respirations are tachypneic. He has been able to maintain oxygen saturation greater than 93% while here. Lung sounds noted to have coarse rhonchi and very tight lung sounds. He was given breathing treatments and steroids and on reassessment breathing has eased and lung sounds continue to be tight but rhonchi has improved. He is currently on 3 L nasal cannula ekg interpreted by ed attending White count 22.43. Chest x-ray negative. Troponin normal at 15. BNP 67. BMP mostly unremarkable. At this time we will admit the patient for COPD exacerbation. Patient agreeable to plan of care. Checkout given to [facility]. . Clinical Impression: 1. Acute exacerbation of chronic obstructive pulmonary disease (COPD) (HCC) 2. Acute respiratory failure with hypoxia (HCC) 3. Tachycardia ED Disposition ED Disposition Hospitalize Condition -- Comment Reason for inpatient over two midnights: acute on chronic resp failure; copd exacerbation Follow-up Information Follow-up information has not been specified. Contact information for after-discharge care Follow-up information has not been specified. New Prescriptions This print group is not available in inpatient encounters. Please contact a global position system technician. Zoe Moreira CNP 08/19/21 [id number] * Fahad Bedolla RN - 08/19/2021 5:01 PM EDT Pt c/o SOB that started 2 days ago and has been worsening since, pt has hx of COPD, also states he has a lot of congestion * Mandy Calle RN - 08/19/2021 5:01 PM EDT Bed: 46 Expected date: Expected time: Means of arrival: Comments: [id number], SOB, perla documented in this [id number] Physician Emergency department Note* Zoe Moreira CNP - 08/19/2021 7:10 PM EDT ED PROVIDER NOTE [facility] ONCOLOGY/SURGERY NAME: Wolf Turcios AGE: 61 y.o. : 1960 VISIT DATE: 08/19/2021 CSN: [id number] PCP: Karma Mark CNP Chief Complaint Patient presents with Shortness of Breath HPI Very pleasant 61-year-old male history of COPD, peptic ulcer disease, prior cocaine use, presentingtoday with complaints of shortness of breath and chest pain. He states he believes he is having a COPD exacerbation. States for last 2weeks he has been short of breath. Initially he was placed on antibiotics without steroids. He states he finished these. He states yesterday developed worsening shortness of breath. States he is having right-sided chest pain that is constant does not radiate to hisarms neck or jaw. Nothing makes the chest pain worse. Denies nausea vomiting diaphoresis. States heis coughing more than usual with white-colored phlegm. Denies abdominal pain nausea or vomiting. Sta melvin at baseline he wears 3 to 5 L of oxygen. He states he has not used or had any breathing treatments recently. Denies leg pain swelling. Denies PE DVT history. Past Medical History: Diagnosis Date Arthritis Asthma Cataract Bilat- s/p Right eye laser Chest pain +ED 09/21/20- Troponin and Chest CT-Neg for PE showed pneuomia and emphysema Cocaine abuse in remission (HCC) None since 2016- now on suboxone COPD (chronic obstructive pulmonary disease) ([facility]) Multiple ED visits- last 08/2020 Edema BLE + ED visit 07/25/20 Emphysema of lung ([facility]) Severe Essential hypertension 01/10/2017 Hyperlipidemia Neck pain Peptic ulcer disease PUD (peptic ulcer disease) Sepsis due to pneumonia ([facility]) 04/2020 Multiple ED visits- last 08/2020. Saw Pulm Dr Hollis while IP 04/20/20 Thoracic aortic aneurysm ([facility]) States d/t drug overdose TIA (transient ischemic attack) Tobacco abuse Past Surgical History: Procedure Laterality Date ARTHROPLASTY HIP TOTAL Right 01/28/2021 Procedure: RIGHT TOTAL HIP ARTHROPLASTY; Surgeon: Teresa Terry MD; Location: [facility] OR; Service: Orthopedic EYE SURGERY Right Laser for cataract GASTRIC ULCER PERFORATION REPAIR Family History Problem Relation Age of Onset Diabetes Mother Diabetes Father Throat cancer Sister Heart attack Maternal Grandmother Pulmonary embolism Neg Hx Deep vein thrombosis Neg Hx Clotting disorder Neg Hx Heart disease Neg Hx Anesthesia problems Neg Hx Surgical complications Neg Hx Social History Socioeconomic History Marital status: Single Tobacco Use Smoking status: Current Every Day Smoker Packs/day: 0.25 Years: 39.00 Pack years: 9.75 Types: Cigarettes Start date: 01/19/1969 Smokeless tobacco: Never Used Tobacco comment: Trying to cut back, 6 cigs per day Vaping Use Vaping Use: Never used Substance and Sexual Activity Alcohol use: Not Currently Comment: 1 beer per month Drug use: Not Currently Types: Crack cocaine Comment: H/o Sober since 2016- now on suboxone Previous Medications Medication Sig acetaminophen 500 mg capsule Take 500 mg by mouth every 8 (eight) hours as needed for pain . albuterol (PROVENTIL) 2.5 mg /3 mL (0.083 %) nebulizer solution Take 3 mL (2.5 mg total) by nebulization every 4 (four) hours as needed for wheezing Dx: J44.0 . albuterol 90 mcg/actuation inhaler Inhale 2 puffs every 6 (six) hours as needed for wheezing . budesonide-formoteroL (SYMBICORT) 160-4.5 mcg/actuation inhaler Inhale 2 (two) puffs 2 (two) times a day . buprenorphine-nalOXone (SUBOXONE) 8-[address] 1 each under the tongue 2 (two) times a day . cyclobenzaprine (FLEXERIL) 10 MG tablet Take 10 mg by mouth every 12 (twelve) hours as needed for muscle spasms . docusate sodium (COLACE) 100 MG capsule Take 100 mg by mouth 2 (two) times a day . furosemide (LASIX) 20 MG tablet Take 20 mg by mouth every morning . guaiFENesin (MUCINEX) 600 mg 12 hr tablet Take 600 mg by mouth 2 (two) times a day as needed . hydroCHLOROthiazide (HYDRODIURIL) 12.5 MG tablet Take 12.5 mg by mouth every morning . loratadine (CLARITIN) 10 mg tablet Take 10 mg by mouth every morning . melatonin 3 mg Tab Take 3 mg by mouth nightly . mometasone-formoterol (Dulera) 200-5 mcg/actuation HFAA Inhale 2 (two) times a day . montelukast (SINGULAIR) 10 mg tablet Take 1 (one) tablet (10 mg total) by mouth nightly . nicotine (NICODERM CQ) 14 mg/[address] 1 patch on the skin daily . potassium chloride SA (K-DUR,KLOR-CON) 20 MEQ tablet Take 20 mEq by mouth every morning . tamsulosin (FLOMAX) 0.4 mg capsule Take 0.4 mg by mouth every morning before breakfast . tiotropium bromide (Spiriva Respimat) 2.5 mcg/actuation Mist Inhale 5 mcg every morning . traZODone (DESYREL) 50 MG tablet Take 100 mg by mouth nightly . albuterol 90 mcg/actuation inhaler Inhale 2 (two) puffs every 4 (four) hours as needed for wheezing. gabapentin (Neurontin) 300 MG capsule Take one capsule daily x 5 days, then twice daily x 5 days, then three times per day. Contact prescribing office for a refill if effective . [DISCONTINUED] cyanocobalamin, vitamin B-12, (VITAMIN B12 ORAL) Take 1 tablet by mouth daily . Allergies Allergen Reactions Ibuprofen Gives him UTI Codeine Itching Including all derivatives - is well tolerated when taking Benadryl prophylaxis Review of Systems Constitutional: Negative. HENT: Negative for trouble swallowing. Respiratory: Positive for cough, chest tightness and shortness of breath. Cardiovascular: Positive for chest pain. Negative for palpitations and leg swelling. Gastrointestinal: Negative for abdominal pain, nausea and vomiting. Genitourinary: Negative for difficulty urinating. Musculoskeletal: Negative for myalgias. Skin: Negative. Neurological: Negative for dizziness, syncope and headaches. Psychiatric/Behavioral: Negative for confusion. All other systems reviewed and are negative. Patient Vitals for the past 24 hrs: BP Temp Temp src Pulse Resp SpO2 08/19/21 2153 121/79 98.2 F (36.8 C) Oral (!) 101 -- 95 % 08/19/21 1945 105/78 -- -- (!) 109 (!) 20 93 % 08/19/21 1852 -- -- -- -- (!) 20 -- 08/19/21 1849 118/86 -- -- (!) 112 (!) 27 98 % 08/19/21 1830 -- -- -- (!) 114 (!) 37 98 % 08/19/21 1723 108/83 -- -- -- -- -- 08/19/21 1702 (!) 140/74 98.5 F (36.9 C) Oral (!) 127 (!) 20 97 % Physical Exam Vitals and nursing note reviewed. Constitutional: General: He is not in acute distress. Appearance: Normal appearance. He is well-developed. He is not ill-appearing, toxic-appearing or diaphoretic. HENT: Head: Normocephalic and atraumatic. Eyes: Extraocular Movements: Extraocular movements intact. Cardiovascular: Rate and Rhythm: Tachycardia present. Pulmonary: Effort: Pulmonary effort is normal. Tachypnea present. Breath sounds: Decreased breath sounds and rhonchi present. Abdominal: Palpations: Abdomen is soft. Tenderness: There is no abdominal tenderness. Musculoskeletal: General: Normal range of motion. Right lower leg: No tenderness. No edema. Left lower leg: No tenderness. No edema. Skin: General: Skin is warm and dry. Coloration: Skin is not jaundiced or pale. Neurological: General: No focal deficit present. Mental Status: He is alert. Cranial Nerves: No cranial nerve deficit. Sensory: No sensory deficit. Psychiatric: Mood and Affect: Mood normal. Behavior: Behavior normal. Laboratory & Radiographic Imaging (if done): Results for orders placed or performed during the hospital encounter of 08/19/21 COVID-19, Molecular Specimen: Nasopharyngeal; Swab Result Value Ref Range SARS-CoV-2 Not Detected Not Detected Lavender Top Result Value Ref Range Extra Tube Hold for add-ons. Mint Green Top Result Value Ref Range Extra Tube Hold for add-ons. Gold Top Result Value Ref Range Extra Tube Hold for add-ons. Light Blue Top Result Value Ref Range Extra Tube Hold for add-ons. Munoz Top Result Value Ref Range Extra Tube Hold for add-ons. NT Pro BNP Result Value Ref Range NT-Pro BNP 67 0 - 300 pg/mL Troponin Result Value Ref Range Troponin T 15 <=22 ng/L Troponin T Interpretation Normal BMP Result Value Ref Range Sodium 137 135 - 145 mmol/L Potassium 4.1 3.5 - 5.1 mmol/L Chloride 97 (L) 98 - 108 mmol/L Bicarbonate 29 21 - 32 mmol/L Anion Gap 15 10 - 20 mmol/L Glucose 110 (H) 65 - 99 mg/dL BUN 10 8 - 25 mg/dL Creatinine 0.95 0.80 - 1.30 mg/dL eGFR 86 >=60 mL/min/1.73 m2 BUN/Creatinine Ratio 10.5 10.0 - 20.0 Calcium 9.0 8.4 - 10.2 mg/dL Blood Gas, Venous with Full Panel Result Value Ref Range pH, Venous 7.37 7.32 - 7.42 pCO2, Edison 53.7 (H) 41.0 - 51.0 mm Hg pO2, Edison 36 25 - 40 mm Hg HCO3, Edison 29.9 (H) 24.0 - 28.0 mmol/L Base Excess, Edison 3.5 (H) -2.0 - 2.0 O2 Sat, Edison 63.1 40.0 - 70.0 % Hemoglobin, Blood Gas 16.0 13.5 - 17.5 g/dL Hematocrit, Calculated 49.0 41.0 - 53.0 % O2 Hb 61.0 No established reference range % Carboxyhemoglobin 2.9 (H) <=1.5 % of total Hb Methemoglobin 0.5 0.0 - 2.0 % Sodium 139 135 - 145 mmol/L Potassium 4.1 3.5 - 5.1 mmol/L Ionized Calcium 4.6 4.5 - 5.3 mg/dL Glucose 94 65 - 99 mg/dL Lactic Acid 1.6 0.6 - 2.0 mmol/L D-Dimer, Quantitative Result Value Ref Range D-Dimer 0.54 (H) 0.27 - 0.49 mcg/mL FEU CBC Auto Differential Result Value Ref Range WBC 22.43 (H) 4.50 - 11.00 K/mcL RBC 4.95 4.50 - 5.90 M/mcL Hemoglobin 15.9 13.5 - 17.5 g/dL Hematocrit 47.5 41.0 - 53.0 % MCV 96.0 80.0 - 100.0 fL MCH 32.1 26.0 - 34.0 pg MCHC 33.5 31.0 - 37.0 g/dL Platelets 346 150 - 400 K/mcL RDW - CV 13.2 11.6 - 14.8 % MPV 8.9 (L) 9.4 - 12.4 fL Neutrophils 86.3 % Lymphocytes 6.1 % Monocytes 5.8 % Eosinophils 0.3 % Basophils 0.5 % IG Percent 1.00 % Neutrophils Abs 19.36 (H) 1.70 - 7.00 K/mcL Lymphocytes Abs 1.36 0.90 - 4.00 K/mcL Monocytes Abs 1.31 (H) 0.30 - 0.90 K/mcL Eosinophils Abs 0.06 0.00 - 0.50 K/mcL Basophils Abs 0.11 0.00 - 0.30 K/mcL IG Absolute 0.23 0.00 - 0.30 K/mcL Nucleated RBC 0.0 % Nucleated RBC Abs 0.00 0.00 - 0.00 K/mcL CT Pulmonary Arteries Final Result No evidence of pulmonary embolism. Extensive diffuse centrilobular pulmonary emphysema. Mild areas of patchy opacities are noted in the left mid to lower lung which could represent areas of fibrosis, less likely infectious/inflammatory process. Workstation ID: [id number] XR Chest 1 View Final Result 1. No acute cardiopulmonary process identified. Workstation ID: [id number] Procedures MDM Very pleasant 61-year-old male history of COPD, peptic ulcer disease, prior cocaine use, presentingtoday with complaints of shortness of breath and chest pain. He states he believes he is having a COPD exacerbation. States for last 2weeks he has been short of breath. Initially he was placed on antibiotics without steroids. He states he finished these. He states yesterday developed worsening shortness of breath. States he is having right-sided chest pain that is constant does not radiate to hisarms neck or jaw. Nothing makes the chest pain worse. Denies nausea vomiting diaphoresis. States heis coughing more than usual with white-colored phlegm. Denies abdominal pain nausea or vomiting. Sta melvin at baseline he wears 3 to 5 L of oxygen. He states he has not used or had any breathing treatments recently. Denies leg pain swelling. Denies PE DVT history. On initial exam the patient's alert, respirations are tachypneic. He has been able to maintain oxygen saturation greater than 93% while here. Lung sounds noted to have coarse rhonchi and very tight lung sounds. He was given breathing treatments and steroids and on reassessment breathing has eased and lung sounds continue to be tight but rhonchi has improved. He is currently on 3 L nasal cannula ekg interpreted by ed attending White count 22.43. Chest x-ray negative. Troponin normal at 15. BNP 67. BMP mostly unremarkable. At this time we will admit the patient for COPD exacerbation. Patient agreeable to plan of care. Checkout given to [facility]. . Clinical Impression: 1. Acute exacerbation of chronic obstructive pulmonary disease (COPD) (HCC) 2. Acute respiratory failure with hypoxia (HCC) 3. Tachycardia ED Disposition ED Disposition Hospitalize Condition -- Comment Reason for inpatient over two midnights: acute on chronic resp failure; copd exacerbation Follow-up Information Follow-up information has not been specified. Contact information for after-discharge care Follow-up information has not been specified. New Prescriptions This print group is not available in inpatient encounters. Please contact a global position system technician. Zoe Moreira CNP 08/19/21 [id number] [facility] Work Phone: [phone] History and physical note* Vishal Valentin MD - 08/19/2021 6:54 PM EDT [facility] HISTORY AND PHYSICAL Patient Name: Wolf Turcios : 1960 MR #: [id number] Admit Date: 08/19/2021 Physicians: Karma Mark CNP (Family); No ref. provider found (Referring) Wolf Turcios is a 61 y.o. 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 Acute on chronic respiratory failure: Tachypnea, worsening of chronic dyspnea, hypoxia on presentation. Improving with adjustment of supplemental oxygen. Patient tested negative for COVID-19. Most likely secondary to COPD exacerbation, but will need to rule out pulmonary emboli. CTPA pending. Will schedule steroids, antibiotics, breathing treatments. Adjust supplemental oxygen as needed. Monitor closely. COPD exacerbation: Productive cough, wheezing, worsening of chronic dyspnea. In setting of COPD and smoking. CXR without acute gross abnormalities. Afebrile, with leukocytosis. Will schedule steroids as well as breathing treatments. Restart home regimen. Adjust supplemental oxygen as needed. Because of severity of symptoms on presentation, will start on azithromycin. Elevated D-dimer: Patient presented with acute on chronic respiratory failure. Patient also admits to right-sided chest pain during the last few days. Tachycardia during his stay in the emergency department. EKG only showing sinus tachycardia. D-dimer elevated on admission. We will get a CTPA to rule out pulmonary emboli. Monitor in telemetry bed. Hypertension: Normotensive on admission. Restart home dose of thiazide. Opiate dependence: Patient on chronic Suboxone at home. Continue home regimen once medication reconciled by pharmacy team. Smoking: Patient strongly recommend to quit. Nicotine patch ordered. Admitted From: home Medication Reconciliation: Verified Code Status: Full Code Quality Measures DVT Prophylaxis: lovenox Foy Catheter: absent The following Vizient risk variables were noted and present on admission: Acute Respiratory Failure Please see assessment and plan for further details. Chief Complaint shortness of breath History of Present Illness Patient states that for the last 2 weeks, he has had productive cough as well as intermittent episode of wheezing. Admits to shortness of breath for the last week. Shortness of breath worsened a few days ago. Patient also admits about 3 to 4 days ago, he started to notice right-sided chest discomfort. Chest pain with no radiation to other areas; worsened with cough. Patient supposed to use 3 L of supplemental oxygen (nasal cannula) only as needed. Patient states that he will use it once a month or so; however, for the last 2 days, he has been using it continuously. Symptoms still not improving, so he decided to come to emergency department for evaluation. Patient denies any recent episode of fevers, chills, emesis, diarrhea, urinary symptoms, gross neurological deficits. Patient states that he still smokes cigarettes; he is down to 3 to 4 cigarettes daily. Past Medical History Past Medical History: Diagnosis Date Arthritis Asthma Cataract Bilat- s/p Right eye laser Chest pain +ED 09/21/20- Troponin and Chest CT-Neg for PE showed pneuomia and emphysema Cocaine abuse in remission ([facility]) None since 2015- now on suboxone COPD (chronic obstructive pulmonary disease) ([facility]) Multiple ED visits- last 08/2020 Edema BLE + ED visit 07/25/20 Emphysema of lung ([facility]) Severe Essential hypertension 01/10/2017 Hyperlipidemia Neck pain Peptic ulcer disease PUD (peptic ulcer disease) Sepsis due to pneumonia ([facility]) 04/2020 Multiple ED visits- last 08/2020. Saw Pulm Dr Hollis while IP 04/20/20 Thoracic aortic aneurysm ([facility]) States d/t drug overdose TIA (transient ischemic attack) Tobacco abuse Past Surgical History Past Surgical History: Procedure Laterality Date ARTHROPLASTY HIP TOTAL Right 01/28/2021 Procedure: RIGHT TOTAL HIP ARTHROPLASTY; Surgeon: Teresa Terry MD; Location: [facility] OR; Service: Orthopedic EYE SURGERY Right Laser for cataract GASTRIC ULCER PERFORATION REPAIR Family History Family History Problem Relation Age of Onset Diabetes Mother Diabetes Father Throat cancer Sister Heart attack Maternal Grandmother Pulmonary embolism Neg Hx Deep vein thrombosis Neg Hx Clotting disorder Neg Hx Heart disease Neg Hx Anesthesia problems Neg Hx Surgical complications Neg Hx Social History Social History Tobacco Use Smoking Status Current Every Day Smoker Packs/day: 0.25 Years: 39.00 Pack years: 9.75 Types: Cigarettes Start date: 01/19/1969 Smokeless Tobacco Never Used Tobacco Comment Trying to cut back, 6 cigs per day Social History Substance and Sexual Activity Alcohol Use Not Currently Comment: 1 beer per month Social History Substance and Sexual Activity Drug Use Not Currently Types: Crack cocaine Comment: H/o Sober since 2017- now on suboxone Allergy Information I have reviewed the patient's allergies. Ibuprofen and Codeine Home Medications Home medications were reviewed. Review Of Systems All systems have been reviewed and are negative except as noted in HPI or below Eyes: Denies vision changes ENT: Denies hearing loss, nasal congestion, sore throat GI: Denies abdominal pain, nausea, vomiting, diarrhea, constipation : Denies dysuria, frequent urination MSK: Denies joint pain or swelling, restricted motion Integumentary: Denies skin changes, pruritis Neurological: Denies dizziness, headache, numbness or tingling Psychiatric: Denies depression, anxiety, sleep disturbance Endocrine: Denies heat or cold intolerance, excessive thirst Hematological: Denies abnormal bleeding or bruising Allergy/Immunological: Denies hives, swelling of lips or tongue Physical Examination BP 110/78 (BP Location: Right arm, Patient Position: Lying) Pulse 109 Temp 98.5 F (36.9 C) (Oral) Resp (!) 20 SpO2 95% (4 L nasal cannula). General Appearance: alert; ; in no acute distress HEENT: Head- normocephalic; Eyes- EOMI, sclera anicteric; Ears- hearing intact; Nose- no nasal discharge; Throat- mucous membranes moist Cardiovascular: regular rate and rhythm; normal S1, S2; no murmurs, rubs, clicks or gallops Respiratory: wheezes; on nasal cannula Abdomen: soft, non-tender, non-distended; positive bowel sounds Neurological: oriented x 3; normal speech; no focal findings or movement disorder noted Musculoskeletal: no significant deformity Skin: no lesions or skin breakdown Psych: normal mood and affect Laboratory and Additional Data Reviewed Laboratory 08/19/21 7:51 PM Microbiology 08/19/21 7:51 PM Radiology 08/19/21 7:51 PM Cardiology 08/19/21 7:51 PM Medications 08/19/21 7:51 PM Transcriptions 08/19/21 7:51 PM [id number] History and physical note* Vishal Valentin MD - 08/19/2021 6:54 PM EDT [facility] HISTORY AND PHYSICAL Patient Name: Wolf Turcios : 1960 MR #: [id number] Admit Date: 08/19/2021 Physicians: Karma Mark CNP (Family); No ref. provider found (Referring) Wolf Turcios is a 61 y.o. male patient of Karma Mark CNP with history of COPD, hypertension, smoking presented with shortness of breath. Acute on chronic respiratory failure: Tachypnea, worsening of chronic dyspnea, hypoxia on presentation. Improving with adjustment of supplemental oxygen. Patient tested negative for COVID-19. Most likely secondary to COPD exacerbation, but will need to rule out pulmonary emboli. CTPA pending. Will schedule steroids, antibiotics, breathing treatments. Adjust supplemental oxygen as needed. Monitor closely. COPD exacerbation: Productive cough, wheezing, worsening of chronic dyspnea. In setting of COPD and smoking. CXR without acute gross abnormalities. Afebrile, with leukocytosis. Will schedule steroids as well as breathing treatments. Restart home regimen. Adjust supplemental oxygen as needed. Because of severity of symptoms on presentation, will start on azithromycin. Elevated D-dimer: Patient presented with acute on chronic respiratory failure. Patient also admits to right-sided chest pain during the last few days. Tachycardia during his stay in the emergency department. EKG only showing sinus tachycardia. D-dimer elevated on admission. We will get a CTPA to rule out pulmonary emboli. Monitor in telemetry bed. Hypertension: Normotensive on admission. Restart home dose of thiazide. Opiate dependence: Patient on chronic Suboxone at home. Continue home regimen once medication reconciled by pharmacy team. Smoking: Patient strongly recommend to quit. Nicotine patch ordered. Admitted From: home Medication Reconciliation: Verified Code Status: Full Code Quality Measures DVT Prophylaxis: lovenox Foy Catheter: absent The following Vizient risk variables were noted and present on admission: Acute Respiratory Failure Please see assessment and plan for further details. Chief Complaint shortness of breath History of Present Illness Patient states that for the last 2 weeks, he has had productive cough as well as intermittent episode of wheezing. Admits to shortness of breath for the last week. Shortness of breath worsened a few days ago. Patient also admits about 3 to 4 days ago, he started to notice right-sided chest discomfort. Chest pain with no radiation to other areas; worsened with cough. Patient supposed to use 3 L of supplemental oxygen (nasal cannula) only as needed. Patient states that he will use it once a month or so; however, for the last 2 days, he has been using it continuously. Symptoms still not improving, so he decided to come to emergency department for evaluation. Patient denies any recent episode of fevers, chills, emesis, diarrhea, urinary symptoms, gross neurological deficits. Patient states that he still smokes cigarettes; he is down to 3 to 4 cigarettes daily. Past Medical History Past Medical History: Diagnosis Date Arthritis Asthma Cataract Bilat- s/p Right eye laser Chest pain +ED 09/21/20- Troponin and Chest CT-Neg for PE showed pneuomia and emphysema Cocaine abuse in remission ([facility]) None since 2015- now on suboxone COPD (chronic obstructive pulmonary disease) ([facility]) Multiple ED visits- last 08/2020 Edema BLE + ED visit 07/25/20 Emphysema of lung ([facility]) Severe Essential hypertension 01/10/2017 Hyperlipidemia Neck pain Peptic ulcer disease PUD (peptic ulcer disease) Sepsis due to pneumonia ([facility]) 04/2020 Multiple ED visits- last 08/2020. Saw Pulm Dr Hollis while IP 04/20/20 Thoracic aortic aneurysm ([facility]) States d/t drug overdose TIA (transient ischemic attack) Tobacco abuse Past Surgical History Past Surgical History: Procedure Laterality Date ARTHROPLASTY HIP TOTAL Right 01/28/2021 Procedure: RIGHT TOTAL HIP ARTHROPLASTY; Surgeon: Teresa Terry MD; Location: [facility] OR; Service: Orthopedic EYE SURGERY Right Laser for cataract GASTRIC ULCER PERFORATION REPAIR Family History Family History Problem Relation Age of Onset Diabetes Mother Diabetes Father Throat cancer Sister Heart attack Maternal Grandmother Pulmonary embolism Neg Hx Deep vein thrombosis Neg Hx Clotting disorder Neg Hx Heart disease Neg Hx Anesthesia problems Neg Hx Surgical complications Neg Hx Social History Social History Tobacco Use Smoking Status Current Every Day Smoker Packs/day: 0.25 Years: 39.00 Pack years: 9.75 Types: Cigarettes Start date: 01/19/1969 Smokeless Tobacco Never Used Tobacco Comment Trying to cut back, 6 cigs per day Social History Substance and Sexual Activity Alcohol Use Not Currently Comment: 1 beer per month Social History Substance and Sexual Activity Drug Use Not Currently Types: Crack cocaine Comment: H/o Sober since 2017- now on suboxone Allergy Information I have reviewed the patient's allergies. Ibuprofen and Codeine Home Medications Home medications were reviewed. Review Of Systems All systems have been reviewed and are negative except as noted in HPI or below Eyes: Denies vision changes ENT: Denies hearing loss, nasal congestion, sore throat GI: Denies abdominal pain, nausea, vomiting, diarrhea, constipation : Denies dysuria, frequent urination MSK: Denies joint pain or swelling, restricted motion Integumentary: Denies skin changes, pruritis Neurological: Denies dizziness, headache, numbness or tingling Psychiatric: Denies depression, anxiety, sleep disturbance Endocrine: Denies heat or cold intolerance, excessive thirst Hematological: Denies abnormal bleeding or bruising Allergy/Immunological: Denies hives, swelling of lips or tongue Physical Examination BP 110/78 (BP Location: Right arm, Patient Position: Lying) Pulse 109 Temp 98.5 F (36.9 C) (Oral) Resp (!) 20 SpO2 95% (4 L nasal cannula). General Appearance: alert; ; in no acute distress HEENT: Head- normocephalic; Eyes- EOMI, sclera anicteric; Ears- hearing intact; Nose- no nasal discharge; Throat- mucous membranes moist Cardiovascular: regular rate and rhythm; normal S1, S2; no murmurs, rubs, clicks or gallops Respiratory: wheezes; on nasal cannula Abdomen: soft, non-tender, non-distended; positive bowel sounds Neurological: oriented x 3; normal speech; no focal findings or movement disorder noted Musculoskeletal: no significant deformity Skin: no lesions or skin breakdown Psych: normal mood and affect Laboratory and Additional Data Reviewed Laboratory 08/19/21 7:51 PM Microbiology 08/19/21 7:51 PM Radiology 08/19/21 7:51 PM Cardiology 08/19/21 7:51 PM Medications 08/19/21 7:51 PM Transcriptions 08/19/21 7:51 PM documented in this [id number] Note* ED Attestation Note - Paige Perla MD - 08/19/2021 5:48 PM EDT ED Attestation This visit was performed by both a physician and an APC. I personally evaluated and examined the patient. I performed all aspects of the MDM as documented. 61-year-old male with a history of COPD presents the ED with medics with shortness of breath for the past several days. Patient states that he has had productive white phlegm with his cough recently.States that he believes his COPD is flaring up. States that he has oxygen at home that he uses intermittently, has been using it more often the last 2 days. Denies any fevers, chills, nausea or vomiting. Denies any chest pain. On my evaluation, patient appears in no acute distress. Hemodynamically tachypneic, tachycardic andhypertensive with other vitals within normal limits. Heart is tachycardic rate and sinus rhythm. Lungs are wheezy to auscultation bilaterally, with moderate distress with retractions, prolonged expiratory phase. No rales. Abdomen is soft, nontender, nondistended. Neurologically patient is awake, alert oriented x3, and nonfocal. At this time, the patient was saturating 97% on nonrebreather mask. He was given DuoNeb breathing treatments along with steroids. Basic blood work will be obtained. Chest x-ray will be obtained. On reevaluation, patient's blood work showed elevated white count of 22. His VBG showed no acute findings. Chest x-ray is clear. The patient felt much improved with his breathing after receiving DuoNeb treatments along with albuterol nebulizer. He is breathing more comfortably, no longer tachypneic. He will be admitted for COPD exacerbation to the medicine service. He is agreeable plan of care. He will be admitted stable condition 35 minutes of constant critical care time were spent on this patient, excluding any time for other billable procedures. XR Chest 1 View Final Result 1. No acute cardiopulmonary process identified. Workstation ID: [id number] Recent Results (from the past 12 hour(s)) NT Pro BNP Collection Time: 08/19/21 5:14 PM Result Value Ref Range NT-Pro BNP 67 0 - 300 pg/mL Troponin Collection Time: 08/19/21 5:14 PM Result Value Ref Range Troponin T 15 <=22 ng/L Troponin T Interpretation Normal BMP Collection Time: 08/19/21 5:14 PM Result Value Ref Range Sodium 137 135 - 145 mmol/L Potassium 4.1 3.5 - 5.1 mmol/L Chloride 97 (L) 98 - 108 mmol/L Bicarbonate 29 21 - 32 mmol/L Anion Gap 15 10 - 20 mmol/L Glucose 110 (H) 65 - 99 mg/dL BUN 10 8 - 25 mg/dL Creatinine 0.95 0.80 - 1.30 mg/dL eGFR 86 >=60 mL/min/1.73 m2 BUN/Creatinine Ratio 10.5 10.0 - 20.0 Calcium 9.0 8.4 - 10.2 mg/dL CBC Auto Differential Collection Time: 08/19/21 5:14 PM Result Value Ref Range WBC 22.43 (H) 4.50 - 11.00 K/mcL RBC 4.95 4.50 - 5.90 M/mcL Hemoglobin 15.9 13.5 - 17.5 g/dL Hematocrit 47.5 41.0 - 53.0 % MCV 96.0 80.0 - 100.0 fL MCH 32.1 26.0 - 34.0 pg MCHC 33.5 31.0 - 37.0 g/dL Platelets 346 150 - 400 K/mcL RDW - CV 13.2 11.6 - 14.8 % MPV 8.9 (L) 9.4 - 12.4 fL Neutrophils 86.3 % Lymphocytes 6.1 % Monocytes 5.8 % Eosinophils 0.3 % Basophils 0.5 % IG Percent 1.00 % Neutrophils Abs 19.36 (H) 1.70 - 7.00 K/mcL Lymphocytes Abs 1.36 0.90 - 4.00 K/mcL Monocytes Abs 1.31 (H) 0.30 - 0.90 K/mcL Eosinophils Abs 0.06 0.00 - 0.50 K/mcL Basophils Abs 0.11 0.00 - 0.30 K/mcL IG Absolute 0.23 0.00 - 0.30 K/mcL Nucleated RBC 0.0 % Nucleated RBC Abs 0.00 0.00 - 0.00 K/mcL Blood Gas, Venous with Full Panel Collection Time: 08/19/21 5:48 PM Result Value Ref Range pH, Venous 7.37 7.32 - 7.42 pCO2, Edison 53.7 (H) 41.0 - 51.0 mm Hg pO2, Edison 36 25 - 40 mm Hg HCO3, Edison 29.9 (H) 24.0 - 28.0 mmol/L Base Excess, Edison 3.5 (H) -2.0 - 2.0 O2 Sat, Edison 63.1 40.0 - 70.0 % Hemoglobin, Blood Gas 16.0 13.5 - 17.5 g/dL Hematocrit, Calculated 49.0 41.0 - 53.0 % O2 Hb 61.0 No established reference range % Carboxyhemoglobin 2.9 (H) <=1.5 % of total Hb Methemoglobin 0.5 0.0 - 2.0 % Sodium 139 135 - 145 mmol/L Potassium 4.1 3.5 - 5.1 mmol/L Ionized Calcium 4.6 4.5 - 5.3 mg/dL Glucose 94 65 - 99 mg/dL Lactic Acid 1.6 0.6 - 2.0 mmol/L . [facility] Work Phone: [phone] Note* ED Procedure Note - Paige Perla MD - 08/19/2021 5:32 PM EDTAssociated Order(s): EKG 12-lead EKG 12-lead Date/Time: 08/19/2021 5:32 PM Performed by: Paige Perla MD Authorized by: Zoe Moreira CNP Interpreted by ED attending physician Rhythm: sinus rhythm and sinus tachycardia BPM: 120 Conduction: conduction normal ST Segments: ST segments normal T Flattening: I and V2 Clinical impression: abnormal ECG and sinus tachycardia [id number] Emergency department Note* Fahad Bedolla RN - 08/19/2021 5:01 PM EDT Pt c/o SOB that started 2 days ago and has been worsening since, pt has hx of COPD, also states he has a lot of congestion [id number] Emergency department Note* Mandy Calle RN - 08/19/2021 5:01 PM EDT Bed: 46 Expected date: Expected time: Means of arrival: Comments: [id number] patel [id number] History of Present illness Narrative* Elpidio Schmitt Jeffry, - 08/05/2021 12:35 PM EST He returns a regarding his lumbar spine He continues to hurt He states it all started when a speaker fell and he had a pain in his low back and started going down his left leg He has pain and mostly numbness in his left leg down the posterior aspect He is got a new MRI scan for review He notes he has been catching his toe a lot On exam he has positive straight leg raising on the left and mild weakness of his ankle dorsiflexors on the left He has new MRI scan for review New MRI images are reviewed by me in clinic today Shows moderate foraminal stenosis L4-5 left with moderate DDD at this level Prior x-rays show DDD without listhesis We talked about treatment options and different forms of treatments expected outcomes alternatives He elects for physical therapy as well as epidural steroid injections we will get those set up and see him back following Note: To expedite co rrespondence this note was generated by [employer] voice recognition software. Some grammatical or spelling errors may occur using the system. documented in this [id number] History of Present illness Narrative* Janusz Myrick PA-C - 06/25/2021 2:00 PM EST Subjective: Patient ID: Wolf Turcios is a 61 y.o. male. CC: Chronic lumbar pain, progressing HPI: The patient presents to the office for evaluation of his lumbar spine. The patient notes that he has had a history of pain in his lumbar spine for about 10 years or so. He notes that this started when he caught a concert speaker that was starting to fall over. He notes that he experienced gradual onset of pain in the day or so after this incident, though immediately he felt cracking, popping, and discomfort in his lumbar spine in response to this injury. He notes that at some point in the intervening years he had also lifted something heavy for work and felt further aggravation of his baseline of pain. Otherwise, his pain has been progressing over the last year or so with worsening severity of symptoms. The patient notes that this includes pain in the axial lumbar spine though most impactful is his radicular symptoms in the left leg. He notes that from the level of the knee distally through the posterior and lateral calf, left heel, and toes of the foot he experiences notable decrease in sensation, paresthesias, and pain. The patient notes that the symptoms are constant and more notable than they had been a year ago. He states that he could dropped a hammer on my foot and not even feel it. The patient notes that his pain in the lumbar spine is aggravated with increased motion including bending, twisting, and lifting. His radicular symptoms are relatively constant without known aggravating or alleviating factors. The patient denies any recent fall, trauma, or injury. The patient has not utilized physical therapy or pain management for his symptoms. He notes that sometimes he has received an intramuscular injection that has offered improvement for a time. He notesthat he had been given muscle laxer medication from another office to help with his spasming symptoms experienced in his left calf. This does offer some limited relief. The following portions of the patient's history were reviewed and updated as appropriate: allergies, current medications, past family history, past medical history, past social history, past surgicalhistory, and problem list. Review of Systems: Pertinent positives and negatives addressed in HPI Review of Systems Patient Active Problem List Diagnosis Essential hypertension COPD (chronic obstructive pulmonary disease) ([facility]) Bilateral hip pain Tobacco use Thoracic aortic aneurysm, without rupture ([facility]) Hydrocele Acute respiratory failure ([facility]) Sepsis ([facility]) Pneumonia Opioid dependence ([facility]) Primary osteoarthritis of right hip Illiterate Homeless Status post right hip replacement COPD exacerbation ([facility]) Objective General: The patient is pleasant, cooperative, alert, oriented, and in no acute distress. He ambulates without the aid of a cane or walker and does not demonstrate any overt difficulty with balance or gait. Musculoskeletal: The patient indicates pain in the midline and bilateral paraspinal lumbar spine without any significant tenderness to palpation in this region. He demonstrates limited range of motion of the lumbar spine with flexion to about 45 degrees and extension to 10 or 15 degrees before aggravation of his lumbar spine prohibits further range of motion. The patient demonstrates appropriate range of motion of the bilateral lower extremities. The patient experienced aggravation of pain symptoms with toe walking on the left leg, though he does not experience any weakness with this. He declined to attempt heel walking due to anticipation of notable left foot pain. Neuro: The patient demonstrates weakness in his left leg as compared to his right. He demonstrates 4/5 strength with left ankle plantarflexion, left knee extension, and left hip flexion. He demonstrates 5/5 strength with right hip flexion, bilateral knee flexion, right knee extension, bilateral ankle dorsiflexion, and right ankle plantarflexion. Deep tendon reflexes were asymmetric. This was reduced in the left knee at trace to 1/4 while the right knee demonstrated 2/4 reflex. Sensation to light touch was reduced in the left leg as compared to the right over the medial and lateral aspect of the left ankle and lateral aspect of the left knee. Tests / Results: XR Lumbar Spine Flex / Ext 2-3 Views Result Date: 06/25/2021 I reviewed the x-rays of the lumbar spine obtained today including flexion and extension lateral views. This demonstrates degenerative changes most notable at the L4-5 and L5-S1 level for there is mild loss of intervertebral disc space. There is no spondylolisthesis and no translation with flexion or extension views. There is no overt compression fracture deformity or indication of acute process. Assessment/Plan: Impression: Chronic lumbar pain with progressive pain symptoms and paresthesia symptoms in the leftleg associated with multiple neural deficits on exam. This includes left leg focal weakness, reduced and asymmetric reflexes, and reduced sensation to light touch in the left leg as compared to the right. Plan: Because of the neurodeficits demonstrated on exam I am recommending an MRI of the lumbar spine. This may help to direct treatment of pain symptoms, though this is specifically to evaluate for his neurologic deficits that suggest potential compressive issues of the neural structures in the lumbar spine. This may direct a trial of injections or consideration for surgical intervention depending on the findings of the study. We will hold off on physical therapy at this time until the patient's MRI is available for review. We may have the patient undergo physical therapy at some point in the future, though this will not offer improvement of his neurodeficits. We discussed potential use of gabapentin to help with his radicular paresthesias and pain symptoms.The patient was interested in trying this medication. We discussed the instructions for use with the start of dose. We discussed possible side effects. The patient does utilize Suboxone from a Suboxone clinic. The prescription does direct the patient to verify with his Suboxone provider that he is okay to take this medication with his Suboxone. We have no concern with him utilizing this medication together, especially as the gabapentin will be utilized in a start up dose to help gauge tolerance. The patient will follow-up with our office once his MRI is available for review. The patient statesunderstanding and agreement with this plan. Dr. Juvenal Teran was available for collaboration during the care and management of this patient. 1. Chronic low back pain with left-sided sciatica, unspecified back pain laterality 2. Impaired sensation to light touch 3. Left leg weakness 4. Asymmetrical deep tendon reflexes Orders Placed This Encounter Procedures MR Lumbar Spine Without Contrast Janusz Myrick PA-C Note: To expedite correspondence this note was generated by [employer] voice recognition software. Somegrammatical or spelling errors may occur using the system. documented in this [id number] History of Present illness Narrative* Teresa Terry MD - 03/15/2021 10:07 AM EDT [facility] [address] [place] [address] Patient Name: Wolf Turcios Patient Age: 60 y.o. Patient : 1960 Date: 03/15/21 Progress Note Follow Up Visit Chief Complaint: Chief Complaint Patient presents with Right Hip - Follow-up Follow-up R ISABEL 01/28/21, XR today. Pt states that he is doing well. Incision is well healed with no drainage.He is walking regularly. Reports that his pain is decreasing. History of Present Illness: Wolf Turcios is a 60 y.o. male who is 6 weeks postop from a right total Hip surgery Doing well . Patient denies shortness of breath, wound drainage, fever, chills, nausea and vomiting Review of Systems: Review of Systems Constitutional: Negative for chills and fever. HENT: Negative for dental problem. Respiratory: Negative for shortness of breath. Cardiovascular: Negative for chest pain and leg swelling. Gastrointestinal: Negative for vomiting. Musculoskeletal: Positive for arthralgias. Negative for gait problem and joint swelling. Skin: Negative for color change. Neurological: Negative for numbness. Hematological: Does not bruise/bleed easily. Psychiatric/Behavioral: The patient is not nervous/anxious. Physical Exam: Ht 6' 1 Wt 63 kg (139 lb) BMI 18.34 kg/m General: alert, appears stated age and cooperative Wound: Wound clean and dry no evidence of infection. Hip ROM: Painless ROM of hip DVT Exam: No evidence of DVT seen on physical exam. The following portions of the patient's history were reviewed and updated as appropriate: allergies, current medications, past family history, past medical history, past social history, past surgicalhistory and problem list. Xrays: XR Hip Right With Pelvis 2-3 Views (Routine) Result Date: 03/15/2021 AP pelvis and lateral radiographic views were obtained and reviewed of the Right hip. These show the presence of total hip arthroplasty. There are no obvious signs of fracture, significant polyethylene wear, radiolucent lines about the prosthesis, subsidence, failure, or other obvious abnormality.AP pelvis and lateral radiographic views were obtained and reviewed of the Left hip. There is arthritic change present that is mild with associated joint space narrowing present. There is no obvious fracture or other osseous abnormality present. Plan: 1. History of total right hip replacement No orders of the defined types were placed in this encounter. Return in about 1 year (around 03/15/2022) for Annual physical, xrays. Narrative: Doing very well 6 weeks following his right total hip arthroplasty. He is walking without a cane. He still has some intermittent pain along the incision and down his thigh but this is improving with more walking. He is planning on moving to [facility] tomorrow with his girlfriend. We advised him to continue his hip flexion precautions for additional 6 weeks. He is also advised to have his hip checked at least yearly. He can do that here or in [place]. Teresa Terry MD Note: To expedite correspondence this note was generated by [employer] voice recognition software. Somegrammatical or spelling errors may occur using the system. documented in this [id number] History of Present illness Narrative* Teresa Terry MD - 02/15/2021 10:29 AM EDT [facility] [address] [place] [id number] Patient Name: Wolf Turcios Patient Age: 60 y.o. Patient : 1960 Date: 02/15/21 Progress Note Follow Up Visit Chief Complaint: Chief Complaint Patient presents with Right Hip - Follow-up Follow-up R ISABEL 01/28/21. Pt is doing well. Aquacel removed, incision loks good, no drainage. Is walking regulary without any ambulatory aide. Has gone back to light duty at work. Is requesting suboxone History of Present Illness: Wolf Turcios is a 60 y.o. male who is 3 weeks postop from a right total Hip surgery Doing well . Patient denies shortness of breath, wound drainage, fever, chills, nausea and vomiting Review of Systems: Review of Systems Physical Exam: Ht 6' 1.5 Wt 71.2 kg (157 lb) BMI 20.43 kg/m General: alert, appears stated age and cooperative Wound: Wound clean and dry no evidence of infection. Hip ROM: Pain with ROM of hip DVT Exam: No evidence of DVT seen on physical exam. The following portions of the patient's history were reviewed and updated as appropriate: allergies, current medications, past family history, past medical history, past social history, past surgicalhistory and problem list. Xrays: No results found. Plan: 1. History of total right hip replacement No orders of the defined types were placed in this encounter. Return in about 4 weeks (around 03/15/2021) for Recheck, xrays. Narrative: He is doing well 3 weeks out from his right total hip arthroplasty. He states that he does not wantany more pain medicine. He can go back to his pain management doctor for Suboxone prescription. We will see him in 4 weeks for reevaluation. Meño removed and Aquacel reapplied Teresa Terry MD Note: To expedite correspondence this note was generated by [employer] voice recognition software. Somegrammatical or spelling errors may occur using the system. documented in this [id number] History of Present illness Narrative* Jihan Orozco PA-C - 02/08/2021 9:00 AM EDT [facility] [address] [place] [address] Patient Name: Wolf Turcios Patient Age: 60 y.o. Patient : 1960 Date: 02/08/21 Progress Note Follow Up Visit Chief Complaint: Chief Complaint Patient presents with Right Hip - Follow-up Follow-up R ISABEL 01/28/21. Pt states that he is feeling good overall. Had some swelling earlier this week, but is improving. He denies any pain today. Is ambulating with a walker. Aquacell removed, incision looks good, no active drainage. History of Present Illness: Wolf Turcios is a 60 y.o. male who is 1 week postop from a right total Hip surgery Doing well States he is doing well however the first few days after surgery he did overdo it by walking to thestore. He was seen in the emergency department due to the increase in swelling. Did have a Doppler which was negative. The swelling has since calm down. He has no new complaints in the office today..Patient denies shortness of breath, wound drainage, fever, chills, nausea and vomiting Review of Systems: Review of Systems Constitutional: Negative for chills and fever. HENT: Negative for dental problem. Respiratory: Negative for shortness of breath. Cardiovascular: Negative for chest pain and leg swelling. Gastrointestinal: Negative for vomiting. Musculoskeletal: Positive for arthralgias, gait problem and joint swelling. Skin: Negative for color change. Neurological: Negative for numbness. Hematological: Does not bruise/bleed easily. Psychiatric/Behavioral: The patient is not nervous/anxious. Physical Exam: Ht 6' 1.5 Wt 71.2 kg (157 lb) BMI 20.43 kg/m General: alert, appears stated age and cooperative Wound: Wound clean and dry no evidence of infection. Hip ROM: Flexion 90, External rotation 20 and Internal rotation 20 DVT Exam: No evidence of DVT seen on physical exam. Negative Georgiana's sign. No cords or calf tenderness. The following portions of the patient's history were reviewed and updated as appropriate: allergies, current medications, past family history, past medical history, past social history, past surgicalhistory and problem list. Xrays: Ultrasound Duplex Venous Leg RIGHT Result Date: 02/06/2021 Patient Info Name: WOLF TURCIOS Age: 60 years : 1960 Gender: Male Exam Date: 02/05/2021 6:11 PM Patient Status: Emergency Mental Health Aides Teacher: Coby Elizalde, RVT, RDMS Referring Physician: ACE Burgess TIMOTHY, ; Indications M79.604 - Pain in right leg Procedure Description 75578 Duplex examination using B-mode, color and spectral Doppler of extremity veins including responses to compression and other maneuvers; unilateral or limitedstudy. Conclusions * No evidence of deep or superficial vein thrombosis in the right lower extremity and the contralateral common femoral vein. . Report Signatures Finalized by Karma Alcantar MD, FACS, RPVI on 02/06/2021 05:52 PM Plan: 1. Status post right hip replacement No orders of the defined types were placed in this encounter. Return in about 1 week (around 02/15/2021) for Recheck. Narrative: I had a long discussion with Wolf in the office today regards to this right hip. Overall his incision is healing well with no signs of infection. His clean, dry and intact. We will place another Aquacel over the incision and keep the meño in at this point to continue to promote healing. I didgo through signs symptoms of infection told him contact us immediately if he notices any of these. I also did discuss with him that he needs to ease back into his activities if he overdoes it he willhave an increase in swelling. He needs to continue to ice and elevate as much as possible. He voiced understanding of this. We will plan on seeing him back next week for staple removal. All of his questions were answered in the office today was told to contact her office any questions or concerns in the interim. Jihan Orozco PA-C Note: To expedite correspondence this note was generated by [employer] voice recognition software. Somegrammatical or spelling errors may occur using the system. documented in this [id number] History of Present illness Narrative* Nuzhat Banks RN - 01/30/2021 7:45 AM EDT 01-30-2021 745 AM Patient discharged last evening. [facility]. Routed note to intake [facility]. * Tamera Rivera RN - 01/29/2021 11:20 AM EDT 01/29/2021 11:20am PAS verified benefits: HOME HEALTH BENEFITS: [employer] MED[employer] COMMUNITY PLAN, NO DED NO OOP COVERAGE 100% 01/29/2021 12:12pm Spoke with care management RN and anticipated discharge is for today. [facility] order in for SN services. Patient is s/p R ISABEL. Dr. Teresa Zurita to follow for [facility]. Spoke with patient regarding [facility] referral for SN, offered and agreeable to [facility] services. Reviewed demographics and insurance. Discussed [facility] expectations and all questions answered. Patient request staff call a day ahead for scheduling. Services Provided : SN Services ordered by their physician review: Yes Patient agreeable to the services that have been ordered: Yes Demographics: Verified Region [address] [place] [address] Where will patient receive services?: Home Home What is the best number to reach the patient?: [phone] Secondary Number?: Emergency contact: Day ( daughter) [phone] Does the patient prefer a phone call or text message? Phone PCP/Following Physician: Dr. Teresa Terry [phone] to follow for [facility] order signed: Yes signed Caregiver/Teachable Caregiver (Relationship, Name and Number): N/A Patient Agreeable to Services Yes Are there any special precautions or safety concerns we need to consider (isolation precautions, etc) ?: No Any animals that need secured before clinician enters home?: Yes, a dog. Patients reports dog is friendly Region capacity board/tracking sheet: N/a no restrictions on Ortho referrals Was this referral handed off to a HH partner? (if yes, list partnering agency) : N/A Hospitalization due to a MVA or BWC claim: N/A documented in this [id number] Miscellaneous Notes* Addendum Note - Annetta Vance CRNA - 01/29/2021 9:52 AM EDT Addendum created 01/29/21951 by Annetta Cassie Synk, LAMINATING MACHINE OPERATOR Cosign clinical note documented in this [id number] Procedure anesthesia Narrative * Procedure Summary Procedure Name Responsible Anesthesiologist Anesthesia Start Time Anesthesia Stop Time RIGHT TOTAL HIP ARTHROPLASTY (Right Hip) Dioni Padron MD 01/28/21 1335 01/28/21 1531 Events Date Time Event Comment 01/28/2021 1107 1335 AN Equip Check 1335 An Start 1335 Patient Verification 1336 An Start Data 1345 an [place] now 1345 An Induction 1347 An Intubation 1348 Anesthesia Ready 1515 [facility] OR 07 1525 An Extubation 1525 an stop data 1530 Handoff I completed my SBAR handoff to the receiving nurse in the PACU/unit. 1531 An Stop Meds Name Total midazolam 2 mg fentaNYL 100 mcg lidocaine 2% 75 mg propofol 160 mg rocuronium 20 mg phenylephrine 1,000 mcg ondansetron (PF) 4 mg neostigmine 3 mg glycopyrrolate 0.6 mg ceFAZolin (ANCEF) IVPB 2 g (premix) 2,00 0 mg tranexamic acid in NaCl (CYLOKAPRON) IVP B 1,000 mg 1,000 mg vancomycin (VANCOCIN) IVPB 1000 mg (tere ix) 1,000 mg succinylcholine 100 mg phenylephrine (OMAR-SYNEPHRIN E) 50 mg in sodium chloride 0.9 % (NS) 250 mL infusion 2,470 mcg albuterol 4 puff bupivacaine 0.75%-dextrose 8.25% (PF) sp inal 1.8 mL lactated Ringers infusion 1,000 mL * Agents No agents on file. * Blood No blood administrations on file. Lines, Drains, and Airways Type Details Placement Removal Peripheral IV Placement Date: 01/07 08/26; Placement Time: 1000; Orientation: Right; Location: Antecubital; Site Prep: Chlorhexidine ; Local Anes: None; Inserted by: Aixa Gramajo rn; Patient Tolerance: Tolerated well 01/28/21 1000 by Melinda Banerjee RN Peripheral IV Placement Date: 01/07 08/26; Placement Time: 1007; Orientation: Right; Location: Hand; Site Prep: Chlorhexidine ; Local Anes: None; Inserted by: S. Hamiliton rn; Patient Tolerance: Tolerated well 01/28/21 1007 by Melinda Banerjee RN Wound 01/28/21; 1009; Surg ical Wou; Hip; Right 01/28/21 1009 by Betty Bergeron RN Urethral Catheter Placement Date: 01/07 08/26; Placement Time: 1351; Inserted by: Angi Bergeron RN; Type: Non-latex; Size: 16 Fr.; Balloon Size: 5 mL; Urine Returned: Yes (clear yellow urine); Removal Date: 01/29/21; Removal Time: 0113; Removal Reason: Per protocol 01/28/21 1351 by Betty Bergeron RN 01/29/21 0113 by Padmini Quinones RN ETT Placement Date: 01/07 08/26; Placement Time: 1413 (created via procedure documentation); Mask Ventilation: Ventilated by mask (2 person); Type: Cuffed, Oral; Tube Size: 7.5 mm; Grade View: 1; Insertion Attempts: 1; Removal Date: 01/28/21; Removal Time: 1525 01/28/21 1413 by Dioni Padron MD 01/28/21 1525 by George Fam II documented in this encounter [id number] Surgical operation note* Anesthesia Postprocedure Evaluation - Dioni Padron MD - 01/28/2021 3:29 PM EDT Anesthesia Post Evaluation * * Refer to nursing documentation for PACU vitals * * Patient participation: patient participated - receiving long-acting regional anesthesia: full recovery has not occurred and is not expected within the 48-hour timeframe. Mental status: sleepy but conscious Pain management: adequate Anesthetic complications: no Nausea / vomiting: no Cardiovascular status: hemodynamically stable Respiratory / airway status: airway patent and nasal cannula Postoperative hydration: acceptable Comment: Patient has satisfactorily recovered from his anesthetic. * Anesthesia Procedure Notes - George Fam II - 01/28/2021 2:45 PM EDT Associated Order(s): Spinal Spinal Patient location: OR Start time: 01/28/2021 1:40 PM End time: 01/28/2021 1:45 PM Reason for block: procedure for pain Staff Anesthesiologist: Dioni Padron MD SRNA: George Fam II Preanesthetic Checklist Completed: patient identified, pre-op evaluation, risks and benefits discussed, informed consent obtained, monitors and equipment checked, IV checked, site marked and timeout performed Procedure Monitoring: heart rate, sales trainer, pulse oximetry and BP Patient sedated with meaningful contract? yes (see MAR for details) Patient position: sitting Preparation: mask, cap, sterile gloves, hand hygiene and sterile drape Prep: Betadine Approach: midline Final location: L4-5 Local infiltration: lidocaine 1% Injection technique: single-shot Final needle: Pencan 25 G x 3.5 in Number of attempts: 1 Events: blood not aspirated, injection not painful, no injection resistance, CSF with spinal needleand paresthesia did not occur with needle placement Patient tolerance: patient tolerated the procedure well with no immediate complications *See MAR for medication administration * Anesthesia Procedure Notes - George Fam II - 01/28/2021 2:12 PM EDT Associated Order(s): ETT Airway ETT Airway Mask ventilation: ventilated by mask (2 person) Technique: video laryngoscopy Type: cuffed oral Tube size: 7.5 mm Final laryngoscope: video laryngoscope 3 LoPro Location: oral Final grade: 1 Insertion attempts: 1 Placement verification: auscultation, end tidal CO2 and symmetrical chest wall movement Secured at: 23 cm (measured from the lips) Secured by: tape Bite block: soft Lip/tooth/tongue trauma: no *See MAR for medication administration * Anesthesia Preprocedure Evaluation - Dioni Padron MD - 01/28/2021 10:27 AM EDT Images from the original note were not included. ANESTHESIA PREPROCEDURE EVALUATION Anesthesia Plan ASA: 4 Type: spinal and general Airway: endotracheal tube Induction: intravenous Anesthetic plan and risks as outlined in the consent discussed with: patient Plan discussed with: PARISH and LAMINATING MACHINE OPERATOR Physical Exam Airway Mallampati: II Cardiovascular - normal Pulmonary - normal Neurological - normal Dental poor dentition Other findings: Blood pressure (!) 132/94, pulse 89, temperature 37.3 C, temperature source Oral, resp. rate (!) 20, SpO2 96 %. Review of Systems / Medical History - Reviewed: ECG, patient summary, anesthesia history, nursing notes, medical history, H&P and labs / results - No history of anesthetic complications Pulmonary Positive: pneumonia COPD, asthma Neurological / Psychological Positive: TIA Cardiovascular Ejection fraction: 55 Exercise tolerance: good Comment: TTE 10/2019 Conclusions: Normal LV chamber size and function, LVEF 55-60%. Normal RV chamber size and function. No significant valvular dysfunction Positive: hypertension hyperlipidemia Gastrointestinal / Hepatic / Renal NPO Status > 8 hours Positive: PUD Other Positive: substance abuse documented in this [id number] Miscellaneous Notes* Addendum Note - Jihan Orozco PA-C - 01/25/2021 9:26 AM EDT Addended by: JIHAN OROZCO on: 01/25/2021 09:26 AM Modules accepted: Orders * Addendum Note - Pablo Askew MA - 01/25/2021 9:23 AM EDT Addended by: PABLO ASKEW on: 01/25/2021 09:23 AM Modules accepted: Orders * Addendum Note - Jihan Orozco PA-C - 01/24/2021 3:03 PM EDT Addended by: JIHAN OROZCO on: 01/24/2021 03:03 PM Modules accepted: Orders * Addendum Note - Pablo Askew MA - 01/24/2021 1:56 PM EDT Addended by: PABLO ASKEW on: 01/24/2021 01:56 PM Modules accepted: Orders documented in this [id number] Miscellaneous Notes* Addendum Note - Pablo Askew MA - 01/25/2021 9:23 AM EDT Addended by: PABLO ASKEW on: 01/25/2021 09:23 AM Modules accepted: Orders * Addendum Note - Jihan Orozco PA-C - 01/24/2021 3:03 PM EDT Addended by: JIHAN OROZCO on: 01/24/2021 03:03 PM Modules accepted: Orders * Addendum Note - Pablo Askew MA - 01/24/2021 1:56 PM EDT Addended by: PABLO ASKEW on: 01/24/2021 01:56 PM Modules accepted: Orders documented in this [id number] Miscellaneous Notes* Addendum Note - Jihan Orozco PA-C - 01/24/2021 3:03 PM EDT Addended by: JIHAN OROZCO on: 01/24/2021 03:03 PM Modules accepted: Orders * Addendum Note - Pablo Askew MA - 01/24/2021 1:56 PM EDT Addended by: PABLO ASKEW on: 01/24/2021 01:56 PM Modules accepted: Orders documented in this [id number] History of Present illness Narrative* Michelle Lindsey, OBJECT ORIENTED PROGRAMMER - 01/24/2021 1:32 PM EDT Images from the original note were not included. PFT 01/24/21 consistent with severe obstruction. No significant bronchodilator effect. He is on appropriate therapy. FEV1>1 liter. * Harpal Nieto MD - 01/23/2021 9:04 AM EDT Pulmonary clearance reviewed and appreciated. Ok to proceed with surgery Have forwarded to surgeon Thanks * Michelle Lindsey CNP - 01/22/2021 10:00 AM EDT Mr. Turcios was seen at the [facility] office at [facility] for presurgical pulmonary evaluation. Dr. Terry for right hip replacement 01/28. He was last seen 06/14/2020. He is a patient Dr. Gramajo. HX: asthma/copd, HTN, HLP, polysubstance abuse, TIA, COVID-19 04/2020. Hospitalized 08/0808/13/2020 with acute on chronic respiratory failure with hypoxia, COPD exacerbation, severe sepsis secondary to MSSA pneumonia. Hospitalized 07/1707/19/2020 with COPD exacerbation, sepsis due to aspiration pneumonia Hospitalized 04/1304/22/2020 with acute respiratory failure with hypoxia, sepsis, multifocal pneumonia with left parapneumonic effusion, COPD exacerbation Multiple emergency room visits for various complaints between hospitalizations. Pulmonary History: Abnormal CT 09/[address] 11/2020 not obtained. No PFT on file although ordered 06/2020. COPD: symbicort, dulera, spiriva, albuterol -2-4 puffs/day. PE: no Other lung disease: aspiration pneumonia Family history of lung disease: no Smokin cig/day; 1 pk/day x 37 yrs; 1.5 pk/day x 8yrs; 2.5 pk/day x 5yrs = 61.5 pk/yrs Vape: no Substance: History: IV cocaine, talwin, methamphetamines . 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 No running water or bathroom Unable to read and write. Blurred vision Activity Tolerance: Able to climb 2 flights of stairs: no Able to walk 4 blocks on level ground: no Sleep History: REJI: no STOP-BANG Questionnaire (yes to 3 or more questions = high risk of sleep apnea) 1. Do you Snore? unknown 2. Are you frequently tired during the day? Yes - not sleeping due to pain in leg 3. Have you been observed gasping or choking while asleep? no 4. Do you have high blood Pressure? yes 5. BMI - greater than 35kg/m2? no 6. Age - over 50 years old? yes 7. Neck Circumference - greater than 17? no 8. Gender - Male? yes Total STOP-BANG score = 4 which indicates High Risk for obstructive sleep apnea. Caffeine: Mt Dew 6-8/day; coffee 1 pot/day ETOH: none Surgical History: Prior surgeries: no complications Difficulty waking up: unknown Difficult intubation: unknown Review of Systems: Constitutional: Negative weight loss or weight gain. HENT: Negative for post nasal drip. Cardiovascular: +lower leg edema. Gastrointestinal: Negative for indigestion/heartburn. Psychiatric: Negative for depression or anxiety. Medications: He has a current medication list which includes the following prescription(s): acetaminophen, albuterol, aspirin, budesonide-formoterol, buprenorphine- naloxone, cyanocobalamin (vitamin b-12), cyclobenzaprine, docusate sodium, furosemide, mucinex, hydrochlorothiazide, loratadine, melatonin, nystatin, potassium chloride sa, tamsulosin, spiriva respimat, trazodone, albuterol, benzonatate, and montelukast. Immunization History Administered Date(s) Administered Pfizer SARS-CoV-2 Vaccination 10/02/2020, 12/07/2020 He is allergic to tylenol [acetaminophen] and codeine. He reports that he has been smoking cigarettes. He started smoking about 52 years ago. He has a 9.75 pack-year smoking history. He has never used smokeless tobacco. He reports previous alcohol use. He reports previous drug use. Drug: Crack cocaine. Physical Exam: BP 129/80 (BP Location: Left arm, Patient Position: Sitting, BP Cuff Size: Adult) Pulse 89 Temp98.4 F (36.9 C) (Temporal) Resp 18 SpO2 91% There is no height or weight on file to calculate BMI. GENERAL: Alert, oriented and in no acute distress. HEENT: EYES: Pupils equal, round and reactive. MOUTH: poor dentition, moist and pink with no exudates. NECK: is supple. No stridor. HEART: regular rate and rhythm. No murmurs, rubs or gallops. LUNGS: Clear to auscultation bilaterally, very diminished. No wheezing, rhonchi or rales. No accessory muscle use. EXTREMITIES: No cyanosis, clubbing. Bilateral pitting edema ankle and feet NEURO: grossly intact. Normal affect. Significant limp using cane. SKIN: warm and dry, no obvious rashes. Diagnostic Review Lab Results Component Value Date WBC 7.39 01/14/2021 HGB 14.5 01/14/2021 HCT 44.5 01/14/2021 MCV 96.7 01/14/2021 PLT 253 01/14/2021 RBC 4.60 01/14/2021 CTA 09/21/20 - report - 1. No evidence of pulmonary embolic disease. 2. Left lower lobe consolidation most consistent with pneumonia. Small left pleural effusion. Radiographic follow-up to resolution is recommended. 3. Severe centrilobular emphysema. CXR 12/13/20 - report - 1. No obvious radiopaque foreign body. 2. Elevated right hemidiaphragm with chronic right basilar opacity. 3. Improved aeration of the left lung since the prior exam. ASSESSMENT/PLAN: 1. COPD severity unknown. Significant emphysema on CTA 04/2020 to my view. -stop dulera (has been taking dulera and symbicort) -spiriva and symbicort -albuterol 2 puff or 1 neb every 4 hrs prn -vaccines up to date -PFT ordered 2. Pneumonia multifocal 04/14/20. Some clearing on chest xray 09/2020. follow-up not obtained. -Ct chest rescheduled prior to surgery 3. Tobacco dependence currently 7 cig/day. Hx: 61.5 pk/yrs. -cessation encouraged. 4. Hx of crack cocaine and other drug use use x 35 yrs. Quit 2017. 5. Borderline oxygenation. O2 sat 91%. Unable to walk of sufficient duration to assess exertional oxygen needs. Will need to be monitored closely post op. 6. 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 Also high risk environment for recovery from infection control standpoint. - Illiterate. Will need careful explanation of medication use and post op care. 7. Wolf Turcios is scheduled for hip replacement 01/28/21. He is at increased risk for post-operative pulmonary complications given obstructive lung disease, smoking status, age >50 and possible obstructive sleep apnea (StopBang=4). His functional status is poor to climb two flights of stairsor walk four blocks. Immediately reversible risk factors: stop smoking. Possible pulmonary complications related to surgery includes post-operative hypoxemia, infection, respiratory failure requiring mechanical ventilation or exacerbation of underlying lung disease. These risks can be minimized with the following measures: --early mobilization post-operatively as appropriate from an surgical standpoint --aggressive pulmonary toilet - cough and deep breaths using incentive spirometry every 1-2 hours while awake --continuation of home medications (symbicort, spiriva, albuterol) --albuterol nebulizer treatments every 4-6 hours for the first 24-48 hrs after surgery --consider positive pressure ventilation such as CPAP in the post-operative setting if there is evidence of hypoventilation/apnea --DVT prophylaxis as appropriate from a surgical standpoint --supplement oxygen to keep O2 sat >88% --Consult mental health social worker to help secure stable place to live --Recommend in-patient rehab since patient has no running water or bathroom facilities which will affect his ability to care for self and surgical wound. --Illiterate requiring careful verbal instructions. We will see him for follow-up in 6 months. This note was dictated using [employer] and may contain errors that were not corrected during editing. documented in this [id number] Miscellaneous Notes* Telephone Encounter - Pablo Askew MA - 01/23/2021 1:44 PM EDT Preop nasal swab + for staph Requested Prescriptions Pending Prescriptions Disp Refills mupirocin (BACTROBAN) 2 % ointment 15 g 0 Sig: Apply 0.5g into each nostril twice daily x 5 days prior to surgery . ' documented in this [id number] Nurse Note* Lotus Rajput RN - 01/14/2021 2:03 PM EDT Patient Instructions for [facility]: Prior to surgery: Please bath the night before and the morning of your surgery to help prevent the chance of any surgical site infection. If your physician provided you with a special soap please use it Please be sure to remove any jewelry and piercing's, and leave all valuables at home. Please do not apply any lotions or makeup on the morning of surgery. Please do not eat any FOOD 8 hours before the time you are scheduled to arrive at the hospital unless otherwise instructed by your Surgeon. You may drink CLEAR LIQUIDS(see-through liquids include: water, clear electrolyte drinks such as Gatorade, Powerade or Pedialyte, black coffee or plain tea) until 2 hours before coming to the hospital. You may brush your teeth in the morning as well as rinse out your mouth - but no swallowing. If you were instructed to take any of your medications on the morning of surgery, please take them with small sips of water. Please remember to bring a list of your current medications, including any herbals and OTC's, on the day of surgery. Please remember to bring your Insurance Card and photo ID with you on the day of surgery - we will make copies of these items and return them to you. Bring any Advance Directive if desired. When you arrive at the [facility] on the day of your surgery, please note that apiculture teacher parking is free. Pull up to the front of the building - an attendant will park your vehicle for you. Enter the building - ahead will be a podium and a guest service liaison who will greet you and direct you to the second floor waiting room. On the second floor a Communication Liaison will greet you and alert the Nursing staff that you have arrived A nurse will meet you in the Surgery Waiting Room and will be the one to take you back to PreOp when they are ready for you. One adult may accompany you to PreOp if you so desire. Please be sure to remove any jewelry and piercing's, and leave all valuables at home. Children under the age of 16 should not accompany you to the hospital Please see that all cellular devices are put on silence to keep your environment calm. Please be sure to wear loose, casual clothing on the day of surgery. Shoulders - wear a button down or zippered shirt Knees - wear sweat pants, shorts, or loose fitting pants There will be a bulky dressing over the incision Please bring any assistive devices, such as crutches & walkers, with you on the day of surgery if you have them. If you have a diagnosis of Sleep Apnea we request that you bring your C-Pap machine with you. If you have any implanted spinal and/or bladder stimulator devices, please bring the remote with you. Have you had a chance to view our online educational program in [employer]? It is very helpful to watch this as it can help you understand your surgery preparation process here at [facility]. It will provide you with additional important information that will help to make your surgery and rec overy process as smooth as possible. After your surgery: If you are scheduled as an outpatient, a responsible licensed adult must be available for transportation, and is expected to remain at the hospital throughout the duration of your procedure. This person must be 18 years old or older. You are not allowed to drive yourself home. A responsible adult must stay with you for 24 hours following your surgery. This includes when being transported by a Medical Taxi documented in this [id number] History and physical note* Harpal Nieto MD - 01/14/2021 1:45 PM EDT Assessment and Plan 1. Pre-op exam Preoperative medical risk stratification indicates patient is acceptable risk for elective major procedure with risk factors as outlined below pending the following ordered tests. CBC and Differential, Basic Metabolic Panel, APTT, PT/INR, Type and Screen, CRP, Inflammation, Sedimentation Rate, Albumin, MRSA Culture/Screen And corresponds with patient's electrical tester 2. Primary osteoarthritis of right hip Patient provided instructions on preoperative management of medications including withholding Aspirin, NSAIDS, Vitamin C, Vitamin E, Fish Oil, and specific Herbal Supplements 7-10 days prior to procedure. In need of surgical intervention having failed other treatments. Primary management per surgical team. For right total hip replacement 3. Pre-operative cardiovascular examination Patient has no active cardiac conditions and would be at acceptable risk based on a RCRI score of 0-1. This patient has an activity level less than 4 MET'sand would be considered at an acceptable cardiac risk based on Current [place] College [employer]/[place] [employer] Association (ACC/AHA) guidelines for perioperative cardiovascular evaluation and management of patients undergoing noncardiac surgery. December 23, 2020 EKG read independently today reveals NSR with no ischemia or prior infarction. 4. Essential hypertension Reasonably controlled and optimized for surgery, patient has been given advice on management of antihypertensive medications perioperatively. Today's BP - 140/87 BP Readings from Last 3 Encounters: 01/14/21 140/87 12/13/20 123/86 10/03/20 126/87 5. Chronic obstructive pulmonary disease, unspecified COPD type (HCC) COPD/emphysema patient with no recent signs or symptoms of COPD exacerbation . Unfortunately he does continue to smoke and has past history of respiratory failure. He has been actively followed by electrical tester. See notation fromMa2020 TIM previous pneumonia/hospital stay April 2020 and persistent consolidation on CT imaging in July and September 2020. Can request correspondence with patient's electrical tester to assure optimization for surgery Patient has been advised on smoking cessation if active nicotine use and continuation of pulmonary medications perioperatively. Will require close monitoring of respiratory status while on parenteralopiates including frequent vital signs and continuous pulse oximetry. 6. History of respiratory failure by history 7. Tobacco abuse Nicotine Dependence, Cigarettes (F17.210) Patient has been counseled on smoking cessation. 8. Thoracic aortic aneurysm, without rupture (HCC) by history. This was not really noted on more recent CT imaging of the chest from June 2020, and updated CT imaging September 2020 9. Edema, unspecified type Peripheral Edema ( R60.9) Chronic condition an controlled with chronic diuretic therapy which may be continued perioperatively up through day prior to surgery. 10. Hyperlipidemia, unspecified hyperlipidemia type Hyperlipidemia (e78.5) Chronic pre-existing condition - controlled on diet therapy alone.' 11. TIA (transient ischemic attack) Personal History of TIA Without residual deficit. Recommend resuming antiplatelet therapy post procedure when acceptable to the surgical service. 12. History of substance abuse (HCC) Crack cocaine by history reports abstinence since 2016. Currently on Suboxone. Will need to hold 48 hours prior to surgery 13. Peptic ulcer disease By history. Not currently reporting use of pharmacologic 14. No contraindication to deep vein thrombosis (DVT) prophylaxis Deep venous thrombosis prophylaxis per primary service. Recommend: Current Antithrombotic therapy for VTE disease: Antithrombotic Therapy and Prevention ofThrombosis, [place] [employer] (ACCP) Evidence-Based Clinical Practice Guidelines. Chief Complaint Patient presents with Pre-operative Medical Risk Stratification History of Present Illness Wolf Turcios is a 60 y.o. male who presents for preoperative medical risk stratification consult at the request of Dr.Robert Juan Terry prior to 01/28/2021- RIGHT TOTAL HIP ARTHROPLASTY . This patient presents with complaints of chronic right hip pain that he has been dealing with for the last 3 years. He reports symptoms rest over this past year and reports both hip and right knee pain.. Pain is currently described as constant and mild to severe particular depending on activity. He does comein today in a wheelchair but denies any recent falls. Patient was evaluated by his surgeon found ofadvanced arthritis involving the right hip. Patient is now scheduled undergo right total hip replacement Patient denies active genitourinary symptoms or history of recurrent urinary tract infection. Patient reports chronic health conditions which include: Hypertension and peripheral edema activelybeing managed by patient's primary care physician currently controlled with diuretic therapy, currently reporting use of both HCTZ and furosemide hyperlipidemia currently managed with dietary measures, environmental allergies treated with both loratadine and montelukast. Possible peptic ulcer disease but not currently reporting any use of pharmacologic treatment. He does have history of substanceabuse but states has been abstinence since currently reporting use of Suboxone In addition COPD/emphysema-unfortunately does continue to smoke. He has had multiple ER visits in the past most recently back August 2020. He did have history of COVID-19 back March/April 2021 requiring hospitalization and treated for pneumonia. Somewhere in that situation he did have issues with respiratory failure. He states he is done better over the last 5 to 6 months. He has undergone outpatient pulmonary follow-up with some serial CT imaging due to his pneumonia/consolidation. He was last seen by pulmonary October 2020 and recommended follow-up till his imaging improved. The patient reports no problems with prior anesthesia experiences This patient denies any history of cardiac disease. The functional capacity is severely reduced dueto osteoarthritis described less than 4 METs without symptoms of chest pain or shortness of breath. This patient denies any recent travel to areas of high risk for COVID-19, or signs or symptoms suggesting acute viral infection. Patient does state he had COVID infection or April 2021. Patient did require hospitalization. Patient states he made recovery. He does report he has had 2 dose of the Pfizer COVID-19 vac. Please see below regarding status of active medical conditions and assessment and plan regarding details of preoperative medical risk stratification. Past Medical History: Diagnosis Date Arthritis Asthma Cataract Bilat- s/p Right eye laser Chest pain +ED 09/21/20- Troponin and Chest CT-Neg for PE showed pneuomia and emphysema Cocaine abuse in remission ([facility]) None since 2015- now on suboxone COPD (chronic obstructive pulmonary disease) ([facility]) Multiple ED visits- last 08/2020 Edema BLE + ED visit 07/25/20 Emphysema of lung ([facility]) Severe Essential hypertension 01/10/2017 Hyperlipidemia Neck pain Peptic ulcer disease PUD (peptic ulcer disease) Sepsis due to pneumonia ([facility]) 04/2020 Multiple ED visits- last 08/2020. Saw Pulm Dr Hollis while IP 04/20/20 Thoracic aortic aneurysm ([facility]) States d/t drug overdose TIA (transient ischemic attack) Tobacco abuse Past Medical History Pertinent Negatives: Diagnosis Date Noted Bleeding disorder (HCC) 01/14/2021 Complication of anesthesia 01/14/2021 Coronary artery disease 01/14/2021 Deep vein thrombosis (HCC) 01/14/2021 Diabetes mellitus, type 2 (HCC) 01/14/2021 Family history of bleeding disorder 01/14/2021 Glaucoma 01/14/2021 History of blood transfusion 01/14/2021 Hypothyroidism 01/14/2021 No blood products 01/14/2021 PONV (postoperative nausea and vomiting) 01/14/2021 Pulmonary embolism (HCC) 01/14/2021 Sleep apnea, obstructive 01/14/2021 Past Surgical History: Procedure Laterality Date EYE SURGERY Right Laser for cataract GASTRIC ULCER PERFORATION REPAIR Social History Tobacco Use Smoking status: Former Smoker Packs/day: 0.25 Years: 39.00 Pack years: 9.75 Types: Cigarettes Smokeless tobacco: Never Used Tobacco comment: Trying to cut back, 8 cigs per day Substance Use Topics Alcohol use: Not Currently Comment: 1 beer per month Family History Problem Relation Age of Onset Diabetes Mother Diabetes Father Throat cancer Sister Heart attack Maternal Grandmother Pulmonary embolism Neg Hx Deep vein thrombosis Neg Hx Clotting disorder Neg Hx Heart disease Neg Hx Anesthesia problems Neg Hx Surgical complications Neg Hx Prior to Admission medications Medication Sig Taking? Dose Freq acetaminophen (TYLENOL) 325 MG tablet Take 650 mg by mouth every 6 (six) hours as needed for pain .Yes 650 mg, Oral, Every 6 hours PRN albuterol (PROVENTIL) 2.5 mg /3 mL (0.083 %) nebulizer solution Take 3 mL (2.5 mg total) by nebulization every 4 (four) hours as needed for wheezing Dx: J44.0 . Yes 2.5 mg, Nebulization, Every 4 hours PRN, Dx: J44.0 albuterol 90 mcg/actuation inhaler Inhale 2 puffs every 4 (four) hours as needed for wheezing . Yes2 puffs, Inhalation, Every 4 hours PRN ASPIRIN ORAL Take by mouth 2 (two) times a day . Yes Oral, 2 times daily benzonatate (TESSALON) 200 MG capsule Take 200 mg by mouth every 8 (eight) hours as needed for cough . Yes 200 mg, Oral, Every 8 hours PRN budesonide-formoteroL (SYMBICORT) 160-4.5 mcg/actuation inhaler Inhale 2 puffs 2 (two) times a day . Yes 2 puffs, Inhalation, 2 times daily buprenorphine-nalOXone (Suboxone) 8-[address] 2 Film under the tongue 2 (two) times a day Takes one film at 0600 and one film at noon . Yes 2 Film, Sublingual, 2 times daily, Takes one film at 0600 and one film at noon cyanocobalamin, vitamin B-12, (VITAMIN B12 ORAL) Take by mouth daily . Yes Oral, Daily cyclobenzaprine (FLEXERIL) 10 MG tablet Take 10 mg by mouth every 12 (twelve) hours as needed for muscle spasms . Yes 10 mg, Oral, Every 12 hours PRN docusate sodium (COLACE) 100 MG capsule Take 100 mg by mouth every morning . Yes 100 mg, Oral, Every morning furosemide (LASIX) 20 MG tablet Take 20 mg by mouth every morning . Yes 20 mg, Oral, Every morning guaiFENesin (Mucinex) 1,200 mg Ta12 Take 1,200 mg by mouth 2 (two) times a day as needed . Yes 1,200 mg, Oral, 2 times daily PRN hydroCHLOROthiazide (HYDRODIURIL) 12.5 MG tablet Take 25 mg by mouth every morning . Yes 25 mg, Oral, Every morning loratadine (CLARITIN) 10 mg tablet Take 10 mg by mouth every morning . Yes 10 mg, Oral, Every morning mometasone-formoterol (Dulera) 200-5 mcg/actuation HFAA Inhale 2 (two) times a day . Yes Inhalation, 2 times daily montelukast (SINGULAIR) 10 mg tablet Take 1 (one) tablet (10 mg total) by mouth nightly . Patient taking differently: Take 10 mg by mouth every morning . Yes 10 mg, Oral, Nightly Patient taking differently: Take 10 mg by mouth every morning . potassium chloride SA (K-DUR,KLOR-CON) 20 MEQ tablet Take 20 mEq by mouth every morning . Yes 20 mEq, Oral, Every morning tamsulosin (FLOMAX) 0.4 mg capsule Take 0.4 mg by mouth every morning before breakfast . Yes 0.4 mg, Oral, Every morning before breakfast tiotropium bromide (Spiriva Respimat) 2.5 mcg/actuation Mist Inhale 5 mcg every morning . Yes 5 mcg, Inhalation, Every morning traZODone (DESYREL) 50 MG tablet Take 50 mg by mouth nightly . Yes 50 mg, Oral, Nightly Allergies Allergen Reactions Tylenol [Acetaminophen] Urinary tract infection Codeine Itching Including all derivatives - is well tolerated when taking Benadryl prophylaxis Review of Systems Constitution: (negative) HENT: (negative) Eyes: (negative) Respiratory: (negative) Cardiovascular: (negative) - Exercise capacity: Less than 4 METS - Currently in a wheelchair poor functional status due to progressive Gastrointestinal: (negative) Genitourinary: (negative) Musculoskeletal: (negative) Skin: (negative) Neurological: (negative) Hematological: (negative) Physical Exam BP 140/87 Pulse 84 Temp 98.2 F (36.8 C) Ht 6' 1.5 Wt 71.2 kg (157 lb) SpO2 97% BMI 20.43 kg/m Constitutional--Conversant, in no acute distress Eyes: [employer] conjunctivae, no ptosis. Pupils equal Bilaterally, Anicteric Ears/nose/mouth/throat:Hearing Intact. Nose and ears appear normal. Oropharynx clear with Moist mucosa Neck: Trachea midline, No Goiter, Non-tender, no masses. Normal ROM. Respiratory: Some increased AP diameter. Otherwise clear without wheeze rales or rhonchi. No consolidation appreciated. Cardiovascular: Regular rhythm with no murmurs, gallops or rubs. No peripheral edema. Gastrointestinal: Abdomen soft, with no masses, no hepatosplenomegaly. Musculoskeletal: No calf tenderness with palpation, no digital cyanosis or clubbing. Skin: No rashes, Normal turgor and temperature. Neurologic: A & O x 3, No focal deficits Psychiatric: Appropriate affect, intact judgement and insight. Data Preprocedure Sleep Apnea Assessment - Moderate Risk (2/3) Sleep Apnea in the patient's Active Problem List or Medical History: no 1. History of apparent airway obstruction during sleep: (1 point for this category) Do you snore frequently, or snore loud enough to be heard through a closed door?: yes Do you awaken from sleep with a choking sensation or have periods during sleep when someone has observed you pausing between breaths?: no 2. Somnolence of the patient: (1 point for this category) Do you find yourself frequently sleepy despite adequate hours of sleep the night before?: yes Do you fall asleep easily while: watching TV, reading, riding in or driving a car?: yes 3. Predisposing physician characteristics: (1 point for this category, 2 points if the BMI ? 40) BMI (Calculated): 20.4 Neck Circumference (inches): 14.5 inches Recent Results (from the past 1825 days) ECHOCARDIOGRAM COMPLETE 11/02/2019 (Final) Status: Normal Narrative Transthoracic Echocardiogram Patient: KAROLINA Vazquez [facility] Rec#: [id number] (Age): 1960(59y) Height: 187(cm)/73(in) Study Date: 11/02/2019 Weight: 63.5(kg)/140(lb Room#: 56 BSA: [id number] Type: Inpatient Loc: [facility] Lab Sex: M Reading: Jeremiah Romero D.O. Referring: Lisa Howe Plow Mechanic: LATISHA DURAN History: Asthma. COPD. Hypertension. Diagnosis: ICD-10-PCS Syncope and collapse (R55) Syncope (780.2) CPT Code(s): ECHO COMPLETE W/ DOPPLER (70433) Study Quality The study quality is technically difficult. Summary: Patient identity verified and ID band on (pause and confirm). Current HP present on patient chart. Procedure explained and patient verified understanding. Conclusions: Normal LV chamber size and function, LVEF 55-60%. Normal RV chamber size and function. No significant valvular dysfunction. Findings Reason For Study: Syncope. Left Ventricle: The left ventricular chamber size is normal. The estimated ejection fraction is 55-60%. The diastolic filling pattern is consistent with impaired relaxation and normal LA pressure (Mild diastolic dysfunction). Mild concentric remodeling of the LV. Atypical septal motion, possibly due to a bundle branch block. Left Atrium: The left atrial chamber size is normal. Right Ventricle: The right ventricular cavity size is normal. The right ventricular global systolic function is normal. Right Atrium: The right atrial cavity size is normal. Aortic Valve: The aortic valve is not well visualized. There is no hemodynamically significant stenosis. There is no evidence of aortic regurgitation. Mitral Valve: The mitral valve leaflets appear normal. There is no evidence of mitral stenosis. There is no evidence of mitral regurgitation. Tricuspid Valve: The tricuspid valve leaflets are normal. There is no evidence of tricuspid valve regurgitation. Pulmonary artery pressure could not be estimated. Pulmonic Valve: The pulmonic valve appears grossly normal in structure and function. There is no pulmonic stenosis. There is no evidence of pulmonic regurgitation. Pericardium: The pericardium appears normal. Aorta: The aorta appears normal. Pulmonary Artery: The main pulmonary artery appears normal. Venous: The inferior vena cava appears normal. HR 73 BP 146/85 Measurements Chambers MM Name Value Normal Range AV cusp separation (MM) 2.1 cm none Chambers 2D Name Value Normal Range IVSd (2D) 1.06 cm none LVPWd (2D) 1.48 cm none IVS:LVPW ratio (2D) 0.72 ratio none LVIDd (2D) 3.85 cm none LVIDs (2D) 2.91 cm none LVIDd (2D) index 2.07 cm/m2 none LVIDs (2D) index 1.56 cm/m2 none LV FS (2D) 24.42 % none LV FS (Teichholz) (2D) 24.4 % none LV FS (cube) (2D) 24.4 % none EF Teichholz (2D) 49.17 % none LA dimension (AP) 2D 2.9 cm none LA dimension (2D) index 1.56 cm/m2 none Volumes/Mass Name Value Normal Range LV EDV SP 4CH (MOD) 90.6 ml none LV ESV SP 4CH (MOD) 28.6 ml none EF SP 4CH (MOD) 68.43 % none LV EDV SP 2CH (MOD) 59.8 ml none LV ESV SP 2CH (MOD) 22.2 ml none EF SP 2CH (MOD) 62.88 % none LV EDV BP 75.3 ml none LV ESV BP 25.1 ml none BP EF (MOD) 66.67 % none LV EDV BP index 40.47 ml/m2 none LV ESV BP index 13.49 ml/m2 none LV mass (2D) 170.2 g none LV mass (2D) index 91.48 g/m2 none Diastolic/Systolic Function Name Value Normal Range MV E-wave Vmax 0.63 m/sec none MV deceleration time 218 msec none MV A-wave Vmax 0.72 m/sec none MV E:A ratio 0.87 ratio (1.1 - 1.5) LV E:e' septal ratio 6.7 ratio none LV E:e' lateral ratio 7.3 ratio none Aortic Valve Name Value Normal Range AV Vmax 1.03 m/sec (1 - 1.7) AV peak gradient 4.24 mmHg (Less Than 36) LVOT diameter 2.1 cm (1.7 - 2.5) LVOT Vmax 0.91 m/sec (0.7 - 1.1) LVOT peak gradient 3 mmHg none DOI (Vmax) 0.88 ratio none SWETA (continuity Vmax) 3.05 cm2 none SWETA (continuity Vmax) index 1.64 cm2/m2 none Pulmonic Valve/Qp:Qs Name Value Normal Range PV Vmax 0.9 m/sec (0.6 - 0.9) PV peak gradient 3.23 mmHg none PV acceleration time 109 msec none Electronically Signed at 11/02/2019 16:05:30 by: Jeremiah Romero D.O. Recent Results (from the past 1825 days) XR CHEST PA/AP 12/13/2020 (Final) Status: Normal Narrative EXAMINATION: ONE XRAY VIEW OF THE CHEST 12/13/2020 12:24 pm COMPARISON: Chest x-ray 08/11/2020 HISTORY: ORDERING SYSTEM PROVIDED HISTORY: Dysphagia; TECHNOLOGIST PROVIDED HISTORY: Illness/Other Acuity: Acute Reason for Exam: Dysphagia Type of Encounter: Initial Additional signs and symptoms: Dysphagia ORDERING SYSTEM PROVIDED DIAGNOSIS CODES: T18.108A Foreign body in esophagus, initial encounter FINDINGS: No obvious radiopaque foreign body along course of the esophagus. Right hemidiaphragm remains elevated with associated right basilar opacity. The opacity in the left lung has improved. No new parenchymal opacities. Costophrenic angles are grossly clear. Cardiac and mediastinal structures are unchanged. The bones are grossly intact. Impression 1. No obvious radiopaque foreign body. 2. Elevated right hemidiaphragm with chronic right basilar opacity. 3. Improved aeration of the left lung since the prior exam. Workstation ID: [id number] LABS Per Anesthesia guidelines or surgeon requested EKG Independently interpreted from -December 23, 2020 EKG read independently today reveals NSR with no ischemia or prior infarction. OLD RECORD SUMMARY Reviewed to further risk stratify patient for surgery includes - More recent [facility] electronic records reviewed pertinent to history. Chest x-ray reviewed in [facility] from December 2020 elevated right hemidiaphragm. Chronic right basilar opacity. Improved aeration since previous exam. CTA pulmonary arteries from September 24, 2020 IMPRESSION: 1. No evidence of pulmonary embolic disease. 2. Left lower lobe consolidation most consistent with pneumonia. Small left pleural effusion. Radiographic follow-up to resolution is recommended. 3. Severe centrilobular emphysema. Echocardiogram reviewed in [facility] everywhere from November 29, 2018 Narrative Low normal LV systolic function with normal diastolic function and normal LV size and wall thickness Normal RVSP estimated to be 30 mmHg Normal RV size and systolic function Incidental note made of small pericardial effusion largely located anterior to the RV OUTSIDE RECORDS REQUESTED NONE A copy of this report has been made available to the referring physician in the hospital's EMR and/or by being faxed to the surgeon's office/surgery center. documented in this [id number] Instructions* Patient Instructions* Harpal Nieto MD - 01/14/2021 1:34 PM EDT Images from the original note were not included. If your surgery date changes or you change your surgery date, please call us at [phone] Preoperative Medication Instructions In preparation for surgery please continue all of your current medications with the following changes: Home Medication Instructions Prior to Surgery Accurate as of January 14, 2021 1:34 PM. Always use your most recent med list. Take last dose on Take the morning of surgery Comment(s) acetaminophen 325 MG tablet Take 650 mg by mouth every 6 (six) hours as needed for pain . Commonly known as: TYLENOL no * albuterol 90 mcg/actuation inhaler Inhale 2 puffs every 4 (four) hours as needed for wheezing . yes As needed * albuterol 2.5 mg /3 mL (0.083 %) nebulizer solution Take 3 mL (2.5 mg total) by nebulization every 4 (four) hours as needed for wheezing Dx: J44.0 . Commonly known as: PROVENTIL yes If needed ASPIRIN ORAL Take by mouth 2 (two) times a day . 01/21 no Stop for surgery benzonatate 200 MG capsule Take 200 mg by mouth every 8 (eight) hours as needed for cough . Commonly known as: TESSALON no budesonide-formoteroL 160-4.5 mcg/actuation inhaler Inhale 2 puffs 2 (two) times a day . Commonly known as: SYMBICORT Yes cyclobenzaprine 10 MG tablet Take 10 mg by mouth every 12 (twelve) hours as needed for muscle spasms . Commonly known as: FLEXERIL no docusate sodium 100 MG capsule Take 100 mg by mouth every morning . Commonly known as: COLACE yes Dulera 200-5 mcg/actuation Hfaa Generic drug: mometasone-formoterol Inhale 2 (two) times a day . yes furosemide 20 MG tablet Take 20 mg by mouth every morning . Commonly known as: LASIX no hydroCHLOROthiazide 12.5 MG tablet Take 25 mg by mouth every morning . Commonly known as: HYDRODIURIL no loratadine 10 mg tablet Take 10 mg by mouth every morning . Commonly known as: CLARITIN no montelukast 10 mg tablet Take 1 (one) tablet (10 mg total) by mouth nightly . Commonly known as: SINGULAIR no Mucinex 1,200 mg Ta12 Generic drug: guaiFENesin Take 1,200 mg by mouth 2 (two) times a day as needed . no potassium chloride SA 20 MEQ tablet Take 20 mEq by mouth every morning . Commonly known as: K-DUR,KLOR-CON no Spiriva Respimat 2.5 mcg/actuation Mist Generic drug: tiotropium bromide Inhale 5 mcg every morning . yes Suboxone 8-2 mg Film Generic drug: buprenorphine-nalOXone Place 2 Film under the tongue 2 (two) times a day Takes one film at 0600 and one film at noon . 01/25 no Stop 2 days prior to surgery tamsulosin 0.4 mg capsule Take 0.4 mg by mouth every morning before breakfast . Commonly known as: FLOMAX yes traZODone 50 MG tablet Take 50 mg by mouth nightly . Commonly known as: DESYREL no VITAMIN B12 ORAL Take by mouth daily . no * This list has 2 medication(s) that are the same as other medications prescribed for you. Read thedirections carefully, and ask your doctor or other care provider to review them with you. 140/87 today's blood pressure and is elevated. Please follow-up your primary physician for blood pressure monitoring. STOP Aspirin (and medications that contain aspirin, such as [place], Pepto- Bismol, Anacin), antiinflammatory medications such as Advil, Motrin, Ibuprofen, Naproxen, Aleve, [place], Pepto-Bismol, Anacin, Diclofenac, Voltaren, Daypro, Etodolac, Ketoprofen, Piroxicam, Relafen, Nabumetone, etc. Also discontinue Vitamin C, Vitamin E, Murphy-3 Fatty Acid, Fish Oil or Lovaza, and all herbal medications. Take last dose on 01/21/2021 Tylenol (acetaminophen) is acceptable, but be careful to follow the label directions and do not usewith other pain medications. It is acceptable to continue a Multivitamin, Magnesium, Potassium, Iron supplement, Vitamin D, Calcium, or Vitamin B if you were already taking them. On the morning of surgery, ONLY take the medications listed above in the column Take the morning of surgery. If you are using Eye Drops or Inhalers at home, please bring them to the hospital. If you have sleep apnea and have a CPAP/BIPAP device, please bring it with you the day of surgery. documented in this [id number] Emergency department Note* Juanita Roy RN - 12/13/2020 4:08 PM EDT Pt resting in cot comfortably with eyes open. Pt was able to consume and tolerate given food. This RN will inform Dr. Oswald. * Juanita Roy RN - 12/13/2020 3:26 PM EDT Pt back from endoscopy, pt resting in cot with eyes open, pt appears to be in no acute distress, ptable to speak in clear and coherent sentences, respirations even and unlabored. This RN will provide the pt with food to make sure the pt can tolerate solids at this time. 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 * Yeny Serrano RN - 12/13/2020 12:18 PM EDT Suction at bedside. * Kvng Baker DO - 12/13/2020 12:18 PM EDT [facility] ED Resident Note: NAME: Wolf Turcios 60 y.o. CSN: [id number] PCP: Karma Mark CNP History: Chief Complaint: Grape stuck in throat HPI: The history was obtained from the patient. 60-year-old male presented to the ED with chief complaint of grapes stuck in his throat. Eating grapes 2030 minutes prior to arrival when 1 became stuck. Not tolerating own secretions upon arrival. No respiratory distress or difficulty on arrival. Sensation of foreign body 7, esophagus. No chest pain. No other complaints. States this happened once before when he was 15. PMHx: Past Medical History: Diagnosis Date Asthma COPD (chronic obstructive pulmonary disease) (HCC) Emphysema of lung (HCC) Essential hypertension 01/10/2017 Hyperlipidemia Polysubstance abuse (HCC) PUD (peptic ulcer disease) Thoracic aortic aneurysm (HCC) TIA (transient ischemic attack) Tobacco abuse PMSx: Past Surgical History: Procedure Laterality Date EYE SURGERY GASTRIC ULCER PERFORATION REPAIR FAM. Hx: Family History Problem Relation Age of Onset Diabetes Mother Diabetes Father Throat cancer Sister Heart attack Maternal Grandmother SOC. Hx: Social History Socioeconomic History Marital status: Single Spouse name: Not on file Number of children: Not on file Years of education: Not on file Highest education level: Not on file Occupational History Not on file Tobacco Use Smoking status: Former Smoker Packs/day: 0.25 Years: 39.00 Pack years: 9.75 Types: Cigarettes Smokeless tobacco: Never Used Tobacco comment: Trying to cut back, 8 cigs per day Vaping Use Vaping Use: Never used Substance and Sexual Activity Alcohol use: Not Currently Comment: 1 beer per month Drug use: Not Currently Types: Crack cocaine Comment: 1.5 years clean Sexual activity: Not on file Other Topics Concern Not on file Social History Narrative Not on file Social Determinants of Health Financial Resource Strain: Difficulty of Paying Living Expenses: Food Insecurity: Worried About Running Out of Food in the Last Year: Ran Out of Food in the Last Year: Transportation Needs: Lack of Transportation (Medical): Lack of Transportation (Non-Medical): Physical Activity: Days of Exercise per Week: Minutes of Exercise per Session: Stress: Feeling of Stress : Social Connections: Frequency of Communication with Friends and Family: Frequency of Social Gatherings with Friends and Family: Attends Evangelical Services: Active Member of Clubs or Organizations: Attends Club or Organization Meetings: Marital Status: MEDs: Previous Medications Medication Sig albuterol (PROVENTIL) 2.5 mg /3 mL (0.083 %) nebulizer solution Take 3 mL (2.5 mg total) by nebulization every 4 (four) hours as needed for wheezing Dx: J44.0 . albuterol 90 mcg/actuation inhaler Inhale 2 puffs every 4 (four) hours as needed for wheezing . benzonatate (TESSALON) 200 MG capsule Take 200 mg by mouth every 8 (eight) hours as needed for cough . budesonide-formoteroL (SYMBICORT) 160-4.5 mcg/actuation inhaler Inhale 2 puffs 2 (two) times a day . buprenorphine-nalOXone (Suboxone) 8-[address] 2 Film under the tongue daily . cyclobenzaprine (FLEXERIL) 10 MG tablet Take 10 mg by mouth every 12 (twelve) hours as needed for muscle spasms . guaiFENesin (Mucinex) 1,200 mg Ta12 Take 1,200 mg by mouth 2 (two) times a day as needed . hydroCHLOROthiazide (HYDRODIURIL) 12.5 MG tablet Take 12.5 mg by mouth daily . loratadine (CLARITIN) 10 mg tablet Take 10 mg by mouth daily . montelukast (SINGULAIR) 10 mg tablet Take 1 (one) tablet (10 mg total) by mouth nightly . tamsulosin (FLOMAX) 0.4 mg capsule Take 0.4 mg by mouth daily . tiotropium bromide (Spiriva Respimat) 2.5 mcg/actuation Mist Inhale 5 mcg daily . traZODone (DESYREL) 50 MG tablet ALL: Allergies Allergen Reactions Tylenol [Acetaminophen] Urinary tract infection Codeine Itching Including all derivatives - is well tolerated when taking Benadryl prophylaxis ROS: Review of Systems Positives and pertinent negatives as per HPI. All other systems were reviewed and are negative. Physical Exam: Patient Vitals for the past 24 hrs: BP Temp Temp src Pulse Resp SpO2 12/13/20 1214 (!) 130/90 98.3 F (36.8 C) Axillary (!) 103 18 98 % Physical Exam Constitutional: Appearance: He is well-developed. HENT: Head: Normocephalic and atraumatic. Eyes: Pupils: Pupils are equal, round, and reactive to light. Cardiovascular: Rate and Rhythm: Normal rate and regular rhythm. Pulmonary: Effort: Pulmonary effort is normal. No respiratory distress. Abdominal: Palpations: Abdomen is soft. Tenderness: There is no abdominal tenderness. Musculoskeletal: Cervical back: Normal range of motion and neck supple. Skin: General: Skin is warm and dry. Neurological: Mental Status: He is alert and oriented to person, place, and time. Cranial Nerves: No cranial nerve deficit. Psychiatric: Behavior: Behavior normal. Laboratory & Radiological Imaging (if done): Labs Reviewed BLOOD GAS, VBG WITH FULL PANEL - Abnormal; Notable for the following components: Result Value pH, Venous 7.45 (*) pO2, Edison 58 (*) HCO3, Edison 28.9 (*) Base Excess, Edison 4.8 (*) O2 Sat, Edison 92.7 (*) Carboxyhemoglobin 7.0 (*) Ionized Calcium 4.3 (*) Glucose 139 (*) Lactic Acid 2.4 (*) All other components within normal limits CBC WITH AUTO DIFFERENTIAL - Abnormal; Notable for the following components: RBC 4.34 (*) Hematocrit 40.8 (*) All other components within normal limits COVID-19, MOLECULAR CBC AND DIFFERENTIAL Narrative: The following orders were created for panel order CBC w/ Diff. Procedure Abnormality Status --------- ------ CBC Auto Differential[[id number]] Abnormal Final result Please view results for these tests on the individual orders. CHEM 7 PT/INR OBTAIN VENOUS BLOOD GASES AND PERFORM REFLEX LACTIC ACID, PLASMA XR Chest 1 View (Results Pending) Procedures: Procedures ED Course / Medical Decision Makin-year-old male presenting with foreign body in esophagus. Eating grapes 2030 minutes prior to arrival. 1 began stuck in his esophagus. No airway distress. Lungs clear to auscultation. HEENT unremarkable. Grape not visualized on oral exam. Consulted GI and plan for scope with foreign body removal. Clinical Impression: 1. Foreign body in esophagus, initial encounter Disposition: Patient is being hospitalize to operating room Kvng Baker DO ED Resident Physician [facility] (Please note that portions of this note have been completed with a voice recognition software. Efforts were made to correct any errors, but occasionally words are mis-transcribed.) Kvng Baker DO 12/13/20 1305 * Yeny Serrano RN - 12/13/2020 12:16 PM EDT Pt arrives to ED with c/o grape stuck in his throat. Pt managing airway at this time. Pt states he cannot swallow his own secretions and must spit them out. Pt states this has happened several times in the past requiring intervention. 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 Resp reg and unlabored. Skin warm and dry. Pt able to speak in short phrases while drooling. Pt intermittentlygagging. * Yeny Serrano RN - 12/13/2020 12:13 PM EDT Bed: 60 Expected date: Expected time: Means of arrival: Comments: M2, grape in throatyulianael documented in this [id number] Miscellaneous Notes* ED Update Note - Angelika Oswald MD - 12/13/2020 4:02 PM EDT Tolerating PO liquids and solids in ED. No symptoms of esophageal food bolus impaction or obstruction. Cleared by GI for discharge home with PCP follow-up. Mechanical soft diet. ED retrun precautionsprovided. * Quick Note - Emmy Godfrey CNP - 12/13/2020 2:21 PM EDT Update: The patient states that he feels like the grape has passed and is no longer stuck. He wanted to trywater and stated it went down just fine. He is tolerating his own secretions and is resting comfortably with normal respirations. He will head back to his ER room and if he can tolerate solids foods he is ok for discharge from a GI standpoint. * ED Attestation Note - Ugo Ochoa MD - 12/13/2020 12:26 PM EDT Shared visit note: This is a 60-year-old male presenting to the ED with complaints of a grape stuckin his throat. He was eating about 20 minutes ago when he states the grape became lodged. Cannot swallow it. He is losing his saliva. He is having no respiratory distress and is speaking in full sentences. GI has been consulted emergently. They plan to take him for emergent endoscopy. I personally saw, evaluated, and examined the patient. I reviewed and agreed with the resident's findings, including all diagnostic interpretations and treatment plans as documented. I was present during boyd portions of separately performed procedures. documented in this [id number] Consult note* Emmy Godfrey CNP - 12/13/2020 12:28 PM EDT Associated Order(s): IP CONSULT TO GASTROENTEROLOGY CONSULT NOTE Patient Name: Wolf Turcios Admit Date: [id number] MR #: [id number] : 1960 Physicians: Karma Mark CNP (Family); No ref. provider found (Referring) Assessment and Plan: 60 yo M with food bolus. Maintaining airway but not tolerating secretions. No blood thinners listed on medication list Keep NPO Plan for EGD today Chief Complaint/Reason for Visit: Grape in esophagus History of Present Illness: Wolf Turcios is a 60 y.o. y/o male with a PMH of TIA, HTN, HLD, COPD,PUD, Cocaine use and tobacco use who presented after a grape got stuck in his espophagus. He was eating a grape about 20 minutes [employer]BU[employer]IST when he felt it get lodged in his esophagus. He is in no respiratory distress. He is unable to tolerate his own secretions. Pt is a poor historian but thinks he has been scoped in the past for dysphagia. I do not see any scopes in [facility] or care everywhere. Pt is not on blood thinners. History: Past Medical History: Diagnosis Date Asthma COPD (chronic obstructive pulmonary disease) (HCC) Emphysema of lung (HCC) Essential hypertension 01/10/2017 Hyperlipidemia Polysubstance abuse (HCC) PUD (peptic ulcer disease) Thoracic aortic aneurysm (HCC) TIA (transient ischemic attack) Tobacco abuse Past Surgical History: Procedure Laterality Date EYE SURGERY GASTRIC ULCER PERFORATION REPAIR Family History Problem Relation Age of Onset Diabetes Mother Diabetes Father Throat cancer Sister Heart attack Maternal Grandmother Social History Socioeconomic History Marital status: Single Spouse name: Not on file Number of children: Not on file Years of education: Not on file Highest education level: Not on file Occupational History Not on file Tobacco Use Smoking status: Former Smoker Packs/day: 0.25 Years: 39.00 Pack years: 9.75 Types: Cigarettes Smokeless tobacco: Never Used Tobacco comment: Trying to cut back, 8 cigs per day Vaping Use Vaping Use: Never used Substance and Sexual Activity Alcohol use: Not Currently Comment: 1 beer per month Drug use: Not Currently Types: Crack cocaine Comment: 1.5 years clean Sexual activity: Not on file Other Topics Concern Not on file Social History Narrative Not on file Social Determinants of Health Financial Resource Strain: Difficulty of Paying Living Expenses: Food Insecurity: Worried About Running Out of Food in the Last Year: Ran Out of Food in the Last Year: Transportation Needs: Lack of Transportation (Medical): Lack of Transportation (Non-Medical): Physical Activity: Days of Exercise per Week: Minutes of Exercise per Session: Stress: Feeling of Stress : Social Connections: Frequency of Communication with Friends and Family: Frequency of Social Gatherings with Friends and Family: Attends Evangelical Services: Active Member of Clubs or Organizations: Attends Club or Organization Meetings: Marital Status: Allergy Information: I have reviewed the patient's allergies. Tylenol [acetaminophen] and Codeine Home Medications: Prior to Admission medications Medication Sig Start Date End Date Taking? Authorizing Provider albuterol (PROVENTIL) 2.5 mg /3 mL (0.083 %) nebulizer solution Take 3 mL (2.5 mg total) by nebulization every 4 (four) hours as needed for wheezing Dx: J44.0 . 08/13/20 09/21/20 Betty Dean PA-C albuterol 90 mcg/actuation inhaler Inhale 2 puffs every 4 (four) hours as needed for wheezing . Historical Provider, benzonatate (TESSALON) 200 MG capsule Take 200 mg by mouth every 8 (eight) hours as needed for cough . Historical Provider, budesonide-formoteroL (SYMBICORT) 160-4.5 mcg/actuation inhaler Inhale 2 puffs 2 (two) times a day . Historical Provider, buprenorphine-nalOXone (Suboxone) 8-[address] 2 Film under the tongue daily . Historical Provider, cyclobenzaprine (FLEXERIL) 10 MG tablet Take 10 mg by mouth every 12 (twelve) hours as needed for muscle spasms . Historical Provider, guaiFENesin (Mucinex) 1,200 mg Ta12 Take 1,200 mg by mouth 2 (two) times a day as needed . Historical Provider, hydroCHLOROthiazide (HYDRODIURIL) 12.5 MG tablet Take 12.5 mg by mouth daily . Historical Provider, loratadine (CLARITIN) 10 mg tablet Take 10 mg by mouth daily . Historical Provider, montelukast (SINGULAIR) 10 mg tablet Take 1 (one) tablet (10 mg total) by mouth nightly . 07/19/20 09/21/20 Kaitlynn Ambriz CNP tamsulosin (FLOMAX) 0.4 mg capsule Take 0.4 mg by mouth daily . 07/24/20 Historical Provider, tiotropium bromide (Spiriva Respimat) 2.5 mcg/actuation Mist Inhale 5 mcg daily . Historical Provider, MD traZODone (DESYREL) 50 MG tablet 11/21/20 Historical Provider, Review of Systems: The following system(s) were reviewed and pertinent findings noted: All other systems reviewed and negative other than HPI Physical Examination: Vital Signs: BP (!) 130/90 (Patient Position: Sitting) Pulse (!) 103 Temp 98.3 F (36.8 C) (Axillary) Resp 18 SpO2 98% General: Alert, cooperative, no distress, appears stated age Head: Normocephalic, without obvious abnormality, atraumatic Eyes: PERRL, conjunctiva/corneas clear, EOM's intact, fundi benign both eyes Throat: Lips, mucosa, and tongue normal; teeth and gums normal. Unable to tolerate own secretions. Neck: Supple, symmetrical, trachea midline Back: Symmetric, no curvature, ROM normal, no CVA tenderness Lungs: Clear to auscultation bilaterally, respirations unlabored,normal respiratory effort Chest Wall: No tenderness or deformity Cardiovascular: Regular rate and rhythm, S1 and S2 normal, no murmur Abdomen: Soft, non-tender, bowel sounds active all four quadrants,no masses, no organomegaly Extremities: Normal, atraumatic, no cyanosis or edema Skin: Skin color, texture, turgor normal, no rashes or lesions Musculoskeletal: Full range of motion of all extremities; no joint edema Neurologic: CNII-XII intact; normal strength, sensation and reflexes throughout Psych: Mood and affect appropriate Laboratory and Additional Data Reviewed: Laboratory 12/13/20 12:31 PM Radiology 12/13/20 12:31 PM Medications 12/13/20 12:31 PM Lab Results Component Value Date INR 1.1 08/09/2020 INR 0.9 06/19/2020 INR 1.1 04/13/2020 PROTIME 14.1 08/09/2020 PROTIME 11.9 06/19/2020 PROTIME 13.9 04/13/2020 Lab Results Component Value Date ALT 26 08/09/2020 AST 22 08/09/2020 ALKPHOS 127 08/09/2020 BILITOT 0.7 08/09/2020 Lab Results Component Value Date WBC 7.65 09/21/2020 HGB 14.2 09/21/2020 HCT 43.7 09/21/2020 MCV 94.6 09/21/2020 PLT 289 09/21/2020 Lab Results Component Value Date GLUCOSE 111 (H) 09/21/2020 CALCIUM 8.8 09/21/2020 NA 137 09/21/2020 K 3.6 09/21/2020 CL 101 09/21/2020 BUN 10 09/21/2020 CREATININE 0.72 09/21/2020 No results found. Associated attestation - Phil Borjas MD - 12/13/2020 1:14 PM EDT The patient was seen and examined. I agree with the findings and plans. This is a 60-year-old male with multiple medical problems who is eating a grape that got stuck in the esophagus. Plan for EGD today for removal of the food bolus. documented in this [id number] Emergency department Note* John Montes DO - 10/03/2020 10:39 PM EDT [facility] EMERGENCY DEPARTMENT Attending Note: NAME: Wolf Turcios 60 y.o. CSN: [id number] PCP: Karma Mark CNP Chief Complaint: Leg Pain ED Course / Medical Decision Making: Wolf is a 60 y.o. who presented to the emergency department with acute on chronic right hip painafter stepping off a ladder wrong and then landing on his tailbone. Patient was able to ambulate prior to arrival. On exam, had reproducible lumbar and right hip tenderness. Pain was made worse with range of motion of the hip, but there is no obvious bony deformity on exam. X-rays of the lumbar spine and right hip were both negative, but did show severe arthritic changes. Patient was given Toradol and oxycodone for his pain, and will be discharged with diclofenac as he is already on Suboxone. Patient did arrive tachycardic, but heart rate did improve after pain control. Patient instructed to follow-up with his PCP, and return to the ED with any new or worsening symptoms. Clinical Impression: 1. Right hip pain 2. Essential hypertension 3. Tobacco use 4. Arthritis of hip New Prescriptions diclofenac sodium (VOLTAREN) 75 MG EC tablet Take 1 (one) tablet (75 mg total) by mouth 2 (two) times a day as needed . Disposition: Patient is being discharged to home. Laboratory & Radiological Imaging (if done): Labs Reviewed - No data to display XR Lumbar Spine 2-3 Views (Standard) Preliminary Result No acute abnormality of the lumbar spine. MM/vrs Workstation ID: [id number] XR Hip Right 2-3 Views (Routine) Final Result No acute abnormality of the right hip. Severe osteoarthritic changes of the right hip joint which appears slightly increased. Workstation ID: [id number] Medications Ordered/Given During ED Visit: Medications ketorolac (TORADOL) injection 30 mg (30 mg Intramuscular Given 10/03/202042) oxyCODONE (ROXICODONE) 10 mg/0.5 mL concentrated solution 5 mg (5 mg Sublingual Given 10/03/202310) History: Patient seen during the COVID- pandemic. Patient in a surgical mask and all ED staff in appropriate PPE given current CDC recommendations. HPI: This is a 60-year-old male who presents with acute on chronic hip pain. Patient states that hewas stepping down off a ladder, landed on his leg wrong, slipped on something on the ground and then landed on his tailbone. Pain is constant, sharp, and made worse with ambulation or weight bearing.He denied any head trauma or loss of consciousness. He is reporting mid low back pain and right hippain. Patient denies any numbness or tingling into the lower extremity. He has no abdominal pain, nausea or vomiting. He has not tried anything for his pain prior to arrival, but is on Suboxone for pain control. History provided by: Patient Leg Pain PMH: Past Medical History: Diagnosis Date Asthma COPD (chronic obstructive pulmonary disease) (HCC) Emphysema of lung (HCC) Essential hypertension 01/10/2017 Hyperlipidemia Polysubstance abuse (HCC) PUD (peptic ulcer disease) Thoracic aortic aneurysm (HCC) TIA (transient ischemic attack) Tobacco Abuse PSH: Past Surgical History: Procedure Laterality Date EYE SURGERY GASTRIC ULCER PERFORATION REPAIR FAM. Hx: Family History Problem Relation Age of Onset Diabetes Mother Diabetes Father Throat cancer Sister Heart attack Maternal Grandmother SOC. Hx: Social History Socioeconomic History Marital status: Single Spouse name: Not on file Number of children: Not on file Years of education: Not on file Highest education level: Not on file Occupational History Not on file Social Needs Financial resource strain: Not on file Food insecurity Worry: Not on file Inability: Not on file Transportation needs Medical: Not on file Non-medical: Not on file Tobacco Use Smoking status: Former Smoker Packs/day: 0.25 Years: 39.00 Pack years: 9.75 Types: Cigarettes Smokeless tobacco: Never Used Tobacco comment: Trying to cut back, 8 cigs per day Substance and Sexual Activity Alcohol use: Not Currently Comment: 1 beer per month Drug use: Not Currently Types: Crack cocaine Comment: 1.5 years clean Sexual activity: Not on file Lifestyle Physical activity Days per week: Not on file Minutes per session: Not on file Stress: Not on file Relationships Social connections Talks on phone: Not on file Gets together: Not on file Attends alevism service: Not on file Active member of club or organization: Not on file Attends meetings of clubs or organizations: Not on file Relationship status: Not on file Other Topics Concern Not on file Social History Narrative Not on file MEDs: Previous Medications Medication Sig albuterol (PROVENTIL) 2.5 mg /3 mL (0.083 %) nebulizer solution Take 3 mL (2.5 mg total) by nebulization every 4 (four) hours as needed for wheezing Dx: J44.0 . albuterol 90 mcg/actuation inhaler Inhale 2 puffs every 4 (four) hours as needed for wheezing . benzonatate (TESSALON) 200 MG capsule Take 200 mg by mouth every 8 (eight) hours as needed for cough . budesonide-formoteroL (SYMBICORT) 160-4.5 mcg/actuation inhaler Inhale 2 puffs 2 (two) times a day . buprenorphine-nalOXone (Suboxone) 8-[address] 2 Film under the tongue daily . cyclobenzaprine (FLEXERIL) 10 MG tablet Take 10 mg by mouth every 12 (twelve) hours as needed for muscle spasms . guaiFENesin (Mucinex) 1,200 mg Ta12 Take 1,200 mg by mouth 2 (two) times a day as needed . hydroCHLOROthiazide (HYDRODIURIL) 12.5 MG tablet Take 12.5 mg by mouth daily . loratadine (CLARITIN) 10 mg tablet Take 10 mg by mouth daily . montelukast (SINGULAIR) 10 mg tablet Take 1 (one) tablet (10 mg total) by mouth nightly . tamsulosin (FLOMAX) 0.4 mg capsule Take 0.4 mg by mouth daily . tiotropium bromide (Spiriva Respimat) 2.5 mcg/actuation Mist Inhale 5 mcg daily . ALL: Allergies Allergen Reactions Tylenol [Acetaminophen] Urinary tract infection Codeine Itching Including all derivatives - is well tolerated when taking Benadryl prophylaxis ROS: Review of Systems Pertinent positives and negatives as per HPI. All other systems have been reviewed and are negative. Physical Exam: Patient Vitals for the past 24 hrs: BP Temp Temp src Pulse Resp SpO2 Height Weight 10/03/20 2250 126/87 (!) 101 96 % 10/03/20 1942 (!) 118 94 % 10/03/20 191 118/77 99.5 F (37.5 C) Oral (!) 123 18 96 % 6' 1 68 kg (150 lb) Physical Exam Vitals signs and nursing note reviewed. Constitutional: General: He is not in acute distress. Appearance: He is well-developed. He is not diaphoretic. HENT: Head: Normocephalic and atraumatic. Right Ear: External ear normal. Left Ear: External ear normal. Nose: Nose normal. Eyes: Conjunctiva/sclera: Conjunctivae normal. Pupils: Pupils are equal, round, and reactive to light. Neck: Musculoskeletal: Neck supple. Vascular: No JVD. Cardiovascular: Rate and Rhythm: Regular rhythm. Tachycardia present. Heart sounds: Normal heart sounds. Pulmonary: Effort: Pulmonary effort is normal. Breath sounds: Normal breath sounds. No stridor. No wheezing. Abdominal: General: Bowel sounds are normal. There is no distension. Palpations: Abdomen is soft. There is no mass. Tenderness: There is no abdominal tenderness. There is no guarding or rebound. Musculoskeletal: Normal range of motion. General: No deformity. Right hip: He exhibits tenderness. He exhibits normal range of motion and normal strength. Lumbar back: He exhibits bony tenderness. Back: Comments: Tenderness to the lateral hip. 2+ femoral pulse. 5 out of 5 strength in the lower extremity. No sensory deficits. 2+ DP and PT pulses. Range of motion does elicit the pain, as does internaland external rotation. Skin: General: Skin is warm and dry. Findings: No rash. Neurological: General: No focal deficit present. Mental Status: He is alert and oriented to person, place, and time. Mental status is at baseline. Motor: No abnormal muscle tone. Psychiatric: Behavior: Behavior normal. Procedures (if done): Procedures (Please note that portions of this note may have been completed with a voice recognition program. Efforts were made to edit the dictations but occasionally words are mis-transcribed.) John Montes DO 10/03/20 4701 * Ruth Santacruz RN - 10/03/2020 7:09 PM EDT Presents with right hip pain; acute on chronic. States chronic pain is related to osteoarthritis. Acute pain is related to stepping down off a ladder the wrong way today around 1500. documented in this [id number] Emergency department Note* Ugo Ochoa MD - 09/21/2020 1:55 PM EDT Associated Order(s): ECG 12 Lead ED PROVIDER NOTE [facility] EMERGENCY DEPARTMENT NAME: Wolf Turcios AGE: 60 y.o. : 1960 VISIT DATE: 09/21/2020 CSN: [id number] PCP: Karma Mark CNP Chief Complaint Patient presents with Chest Pain HPI Past Medical History: Diagnosis Date Asthma COPD (chronic obstructive pulmonary disease) (HCC) Emphysema of lung (HCC) Essential hypertension 01/10/2017 Hyperlipidemia Polysubstance abuse (HCC) PUD (peptic ulcer disease) Thoracic aortic aneurysm (HCC) TIA (transient ischemic attack) Tobacco Abuse Past Surgical History: Procedure Laterality Date EYE SURGERY GASTRIC ULCER PERFORATION REPAIR Family History Problem Relation Age of Onset Diabetes Mother Diabetes Father Throat cancer Sister Heart attack Maternal Grandmother Social History Socioeconomic History Marital status: Single Spouse name: Not on file Number of children: Not on file Years of education: Not on file Highest education level: Not on file Occupational History Not on file Social Needs Financial resource strain: Not on file Food insecurity Worry: Not on file Inability: Not on file Transportation needs Medical: Not on file Non-medical: Not on file Tobacco Use Smoking status: Former Smoker Packs/day: 0.25 Years: 39.00 Pack years: 9.75 Types: Cigarettes Smokeless tobacco: Never Used Tobacco comment: Trying to cut back, 8 cigs per day Substance and Sexual Activity Alcohol use: Not Currently Comment: 1 beer per month Drug use: Not Currently Types: Crack cocaine Comment: 1.5 years clean Sexual activity: Not on file Lifestyle Physical activity Days per week: Not on file Minutes per session: Not on file Stress: Not on file Relationships Social connections Talks on phone: Not on file Gets together: Not on file Attends alevism service: Not on file Active member of club or organization: Not on file Attends meetings of clubs or organizations: Not on file Relationship status: Not on file Other Topics Concern Not on file Social History Narrative Not on file Previous Medications Medication Sig albuterol (PROVENTIL) 2.5 mg /3 mL (0.083 %) nebulizer solution Take 3 mL (2.5 mg total) by nebulization every 4 (four) hours as needed for wheezing Dx: J44.0 . albuterol 90 mcg/actuation inhaler Inhale 2 puffs every 4 (four) hours as needed for wheezing . benzonatate (TESSALON) 200 MG capsule Take 200 mg by mouth every 8 (eight) hours as needed for cough . budesonide-formoteroL (SYMBICORT) 160-4.5 mcg/actuation inhaler Inhale 2 puffs 2 (two) times a day . buprenorphine-nalOXone (Suboxone) 8-[address] 2 Film under the tongue daily . cyclobenzaprine (FLEXERIL) 10 MG tablet Take 10 mg by mouth every 12 (twelve) hours as needed for muscle spasms . guaiFENesin (Mucinex) 1,200 mg Ta12 Take 1,200 mg by mouth 2 (two) times a day as needed . hydroCHLOROthiazide (HYDRODIURIL) 12.5 MG tablet Take 12.5 mg by mouth daily . loratadine (CLARITIN) 10 mg tablet Take 10 mg by mouth daily . tamsulosin (FLOMAX) 0.4 mg capsule Take 0.4 mg by mouth daily . tiotropium bromide (Spiriva Respimat) 2.5 mcg/actuation Mist Inhale 5 mcg daily . montelukast (SINGULAIR) 10 mg tablet Take 1 (one) tablet (10 mg total) by mouth nightly . Allergies Allergen Reactions Tylenol [Acetaminophen] Urinary tract infection Codeine Itching Including all derivatives - is well tolerated when taking Benadryl prophylaxis Review of Systems Patient Vitals for the past 24 hrs: BP Temp Temp src Pulse Resp SpO2 09/21/20 1305 137/87 (!) 100 (!) 21 09/21/20 1120 (!) 164/103 98 F (36.7 C) Oral 98 (!) 19 96 % Physical Exam Laboratory & Radiographic Imaging (if done): Results for orders placed or performed during the hospital encounter of 09/21/20 COVID-19/Influenza A,B Molecular Specimen: Nasopharyngeal; Swab Result Value Ref Range SARS-CoV-2 Not Detected Not Detected Influenza A Not Detected Not Detected Influenza B Not Detected Not Detected BMP Result Value Ref Range Sodium 137 135 - 145 mmol/L Potassium 3.6 3.5 - 5.1 mmol/L Chloride 101 98 - 108 mmol/L Bicarbonate 29 21 - 32 mmol/L Anion Gap 11 10 - 20 mmol/L Glucose 111 (H) 65 - 99 mg/dL BUN 10 8 - 25 mg/dL Creatinine 0.72 0.50 - 1.30 mg/dL eGFR 101 >=60 mL/min/1.73 m2 BUN/Creatinine Ratio 13.9 10.0 - 20.0 Calcium 8.8 8.4 - 10.2 mg/dL Troponin x 2 (Now and Repeat in 3 hours) Result Value Ref Range Troponin T 12 <=22 ng/L Troponin T Interpretation Normal NT Pro BNP Result Value Ref Range NT-Pro BNP <50 0 - 300 pg/mL Blood Gas, Venous with Full Panel Result Value Ref Range pH, Venous 7.34 7.32 - 7.42 pCO2, Edison 58.5 (H) 41.0 - 51.0 mm Hg pO2, Edison 33 25 - 40 mm Hg HCO3, Edison 30.9 (H) 24.0 - 28.0 mmol/L Base Excess, Edison 3.9 (H) -2.0 - 2.0 O2 Sat, Edison 59.3 40.0 - 70.0 % Hemoglobin, Blood Gas 14.9 13.5 - 17.5 g/dL Hematocrit, Calculated 45.6 41.0 - 53.0 % O2 Hb 57.5 No established reference range % Carboxyhemoglobin 2.7 (H) <=1.5 % of total Hb Methemoglobin 0.3 0.0 - 2.0 % Sodium 141 135 - 145 mmol/L Potassium 3.7 3.5 - 5.1 mmol/L Ionized Calcium 4.8 4.5 - 5.3 mg/dL Glucose 100 (H) 65 - 99 mg/dL Lactic Acid 1.2 0.6 - 2.0 mmol/L ECG 12 Lead Result Value Ref Range Ventricular Rate 99 BPM Atrial Rate 99 BPM P-R Interval 150 ms QRS Duration 96 ms Q-T Interval 346 ms QTC Calculation (Bezet) 444 ms P [place] 82 degrees R [place] 74 degrees T [place] 73 degrees CBC Auto Differential Result Value Ref Range WBC 7.65 4.50 - 11.00 K/mcL RBC 4.62 4.50 - 5.90 M/mcL Hemoglobin 14.2 13.5 - 17.5 g/dL Hematocrit 43.7 41.0 - 53.0 % MCV 94.6 80.0 - 100.0 fL MCH 30.7 26.0 - 34.0 pg MCHC 32.5 31.0 - 37.0 g/dL Platelets 289 150 - 400 K/mcL RDW - CV 13.3 11.6 - 14.8 % MPV 8.7 (L) 9.4 - 12.4 fL Neutrophils 64.5 % Lymphocytes 16.3 % Monocytes 7.2 % Eosinophils 10.8 % Basophils 0.9 % IG Percent 0.30 % Neutrophils Abs 4.93 1.70 - 7.00 K/mcL Lymphocytes Abs 1.25 0.90 - 4.00 K/mcL Monocytes Abs 0.55 0.30 - 0.90 K/mcL Eosinophils Abs 0.83 (H) 0.00 - 0.50 K/mcL Basophils Abs 0.07 0.00 - 0.30 K/mcL IG Absolute 0.02 0.00 - 0.30 K/mcL Nucleated RBC 0.0 % Nucleated RBC Abs 0.00 0.00 - 0.00 K/mcL CT Pulmonary Arteries (Results Pending) ECG 12 Lead Date/Time: 09/21/2020 1:55 PM Performed by: Ugo Ochoa MD Authorized by: Ugo Ochoa MD Interpreted by ED attending physician Comparison: not compared with previous ECG Rhythm: sinus rhythm BPM: 99 Conduction: conduction normal ST Segments: ST segments normal T Waves: T waves normal Clinical impression: normal ECG MDM . Clinical Impression: No diagnosis found. ED Disposition None Follow-up Information Follow-up information has not been specified. Contact information for after-discharge care Follow-up information has not been specified. Ugo Ochoa MD 09/21/20 1357 * Laci Johnson, - 09/21/2020 11:16 AM EDT [facility] ED Resident Note: NAME: Wolf Turcios 60 y.o. CSN: [id number] PCP: Karma Mark CNP History: Chief Complaint: Chest Pain HPI: The history was obtained from the patient. Wolf is a 60 y.o. male with PMH COPD not on homeO2/asthma who presents with a chief complaint of chest pain, cough, hemoptysis. Patient states symptoms been for approximately the past 5 days of productive cough of whitish-yellow mucus and this morning noticed he was having some spotting of blood in his mucus but developed into streaks without kerrie mopped assist. Denies blood thinner use. States it is since subsided since arrival. States it feels similar to previous COPD exacerbations he has had in the past versus past pneumonia. States he has not been on the antibiotics or steroids for at least 3 weeks. States is taking all of his home controller medications. Denies fevers, chills, nausea, vomiting, abdominal pain, dysuria/hematuria, loose stools, change in bowel movements. Denies recent travel/immobilization, lower extremity swellingorthopnea. Denies previous history of cardiopulmonary interventions. Denies taking anything new forhis symptoms at home. Denies exertional symptoms. Denies any sick contacts. Denies alcohol, states longstanding tobacco history however quit 6 weeks prior, history of polysubstance abuse but states has been off for several months now PMHx: Past Medical History: Diagnosis Date Asthma COPD (chronic obstructive pulmonary disease) (HCC) Emphysema of lung (HCC) Essential hypertension 01/10/2017 Hyperlipidemia Polysubstance abuse (HCC) PUD (peptic ulcer disease) Thoracic aortic aneurysm (HCC) TIA (transient ischemic attack) Tobacco Abuse PMSx: Past Surgical History: Procedure Laterality Date EYE SURGERY GASTRIC ULCER PERFORATION REPAIR FAM. Hx: Family History Problem Relation Age of Onset Diabetes Mother Diabetes Father Throat cancer Sister Heart attack Maternal Grandmother SOC. Hx: Social History Socioeconomic History Marital status: Single Spouse name: Not on file Number of children: Not on file Years of education: Not on file Highest education level: Not on file Occupational History Not on file Social Needs Financial resource strain: Not on file Food insecurity Worry: Not on file Inability: Not on file Transportation needs Medical: Not on file Non-medical: Not on file Tobacco Use Smoking status: Former Smoker Packs/day: 0.25 Years: 39.00 Pack years: 9.75 Types: Cigarettes Smokeless tobacco: Never Used Tobacco comment: Trying to cut back, 8 cigs per day Substance and Sexual Activity Alcohol use: Not Currently Comment: 1 beer per month Drug use: Not Currently Types: Crack cocaine Comment: 1.5 years clean Sexual activity: Not on file Lifestyle Physical activity Days per week: Not on file Minutes per session: Not on file Stress: Not on file Relationships Social connections Talks on phone: Not on file Gets together: Not on file Attends alevism service: Not on file Active member of club or organization: Not on file Attends meetings of clubs or organizations: Not on file Relationship status: Not on file Other Topics Concern Not on file Social History Narrative Not on file MEDs: Previous Medications Medication Sig albuterol (PROVENTIL) 2.5 mg /3 mL (0.083 %) nebulizer solution Take 3 mL (2.5 mg total) by nebulization every 4 (four) hours as needed for wheezing Dx: J44.0 . albuterol 90 mcg/actuation inhaler Inhale 2 puffs every 4 (four) hours as needed for wheezing . benzonatate (TESSALON) 200 MG capsule Take 200 mg by mouth every 8 (eight) hours as needed for cough . budesonide-formoteroL (SYMBICORT) 160-4.5 mcg/actuation inhaler Inhale 2 puffs 2 (two) times a day . buprenorphine-nalOXone (Suboxone) 8-[address] 2 Film under the tongue daily . cyclobenzaprine (FLEXERIL) 10 MG tablet Take 10 mg by mouth every 12 (twelve) hours as needed for muscle spasms . guaiFENesin (Mucinex) 1,200 mg Ta12 Take 1,200 mg by mouth 2 (two) times a day as needed . hydroCHLOROthiazide (HYDRODIURIL) 12.5 MG tablet Take 12.5 mg by mouth daily . loratadine (CLARITIN) 10 mg tablet Take 10 mg by mouth daily . tamsulosin (FLOMAX) 0.4 mg capsule Take 0.4 mg by mouth daily . tiotropium bromide (Spiriva Respimat) 2.5 mcg/actuation Mist Inhale 5 mcg daily . montelukast (SINGULAIR) 10 mg tablet Take 1 (one) tablet (10 mg total) by mouth nightly . ALL: Allergies Allergen Reactions Tylenol [Acetaminophen] Urinary tract infection Codeine Itching Including all derivatives - is well tolerated when taking Benadryl prophylaxis ROS: Review of Systems Positives and pertinent negatives as per HPI. All other systems were reviewed and are negative. Physical Exam: Patient Vitals for the past 24 hrs: BP Temp Temp src Pulse Resp SpO2 09/21/20 1459 93 17 09/21/20 1305 137/87 (!) 100 (!) 21 09/21/20 1120 (!) 164/103 98 F (36.7 C) Oral 98 (!) 19 96 % GENERAL: Awake and alert, pleasant, polite appears nontoxic and in no apparent respiratory distress. Appears well-developed and well-nourished. HEAD: Normocephalic, Atraumatic. EYES: Conjunctiva and sclera clear, EOMI, PERRL. ENT: Pharynx clear. Moist mucous membranes. NECK: Trachea midline. No meningismus. CV: Regular rate and rhythm with 2+ radial/DP/PT pulses that are symmetric, no clicks, gallops, or murmurs appreciated. No edema. RESP: Symmetric chest rise, no accessory muscle use, mild tachypnea with diffuse faint expiratory wheezes throughout with productive sounding cough. No focal crackles or rhonchi. GI: Non-distended, soft, non-tender. No guarding, masses, rebound, or peritoneal signs. MUSC: Normal ROM without deformity. Ambulates on exam without difficulty and moves all extremities equally without focal weakness. SKIN: Warm and dry. No rashes. No diaphoresis. NEURO: Alert, Oriented x 3 (Person, Place, Time). Grossly normal motor and sensory exam. No focal deficits. PSYCH: Mood and affect are appropriate. Cooperative. Insight is appropriate. Triage and Nursing notes reviewed. Laboratory & Radiological Imaging (if done): Labs Reviewed BASIC METABOLIC PANEL - Abnormal; Notable for the following components: Result Value Glucose 111 (*) All other components within normal limits Narrative: The eGFR should be used for monitoring renal function only and not for medication dosing. BLOOD GAS, VBG WITH FULL PANEL - Abnormal; Notable for the following components: pCO2, Edison 58.5 (*) HCO3, Edison 30.9 (*) Base Excess, Edison 3.9 (*) Carboxyhemoglobin 2.7 (*) Glucose 100 (*) All other components within normal limits CBC WITH AUTO DIFFERENTIAL - Abnormal; Notable for the following components: MPV 8.7 (*) Eosinophils Abs 0.83 (*) All other components within normal limits COVID-19/INFLUENZA A,B MOLECULAR - Normal Narrative: This test was performed under the FDA's Emergency Use Authorization (EUA). Testing was performed using the Dimitris Panda SARS-CoV-2 RT-PCR & Influenza A/B Nucleic Acid Teston the Panda [facility]ja System. This test has not been approved for use in asymptomatic patients and its performance in this patient population has not been evaluated. Negative results do not rule out the presence of SARS-CoV-2, influenza A, and/or influenza B. Fact sheets for the EUA can be found at the following links: For Healthcare Providers: https://www.fda.gov/media/165754/download For Patients: https://www.fda.gov/media/540358/download NT PRO BNP - Normal Narrative: Pride Study Cut-offs Rule In: < /= 50 Years >450 pg/mL 51 Years - 75 Years >900 pg/mL 76 Years - 99 Years >1800 pg/mL Rule Out: All patients <300 pg/mL CBC AND DIFFERENTIAL Narrative: The following orders were created for panel order CBC w/ Diff. Procedure Abnormality Status --------- ------ CBC Auto Differential[[id number]] Abnormal Final result Please view results for these tests on the individual orders. TROPONIN CT Pulmonary Arteries Preliminary Result 1. No evidence of pulmonary embolic disease. 2. Left lower lobe consolidation most consistent with pneumonia. Small left pleural effusion. Radiographic follow-up to resolution is recommended. 3. Severe centrilobular emphysema. RECOMMENDATIONS: Radiographic follow-up to resolution. [facility] Workstation ID: [id number] Procedures: Procedures Medications Given in the ED: Medications sodium chloride (PF) (NS) 0.9 % contrast line flush 10 mL (has no administration in time range) And sodium chloride (PF) (NS) 0.9 % contrast line flush 80 mL (80 mL Intravenous Given 09/21/20 1405) And iopamidoL (ISOVUE-370) 76 % injection 75 mL (75 mL Intravenous Contrast Administered 09/21/20 1405) doxycycline (VIBRAMYCIN) oral solid 100 mg (has no administration in time range) sodium chloride 0.9% (NS) bolus 1,000 mL (1,000 mL Intravenous New Bag 09/21/20 1125) ipratropium-albuteroL (DUO-NEB) 0.5-2.5 mg/3 ml nebulizer solution 3 mL (3 mL Inhalation Given 09/21/20 1125) ipratropium-albuteroL (DUO-NEB) 0.5-2.5 mg/3 ml nebulizer solution 3 mL (3 mL Inhalation Given 09/21/20 1125) ipratropium-albuteroL (DUO-NEB) 0.5-2.5 mg/3 ml nebulizer solution 3 mL (3 mL Inhalation Given 09/21/20 1125) predniSONE (DELTASONE) tablet 40 mg (40 mg Oral Given 09/21/20 1257) ED Course / Medical Decision Making: Wolf Turcios presented to the ED as stated above with left-sided chest discomfort, productive cough for the past 5 days and primary concern of scant hemoptysis starting today. Patient nontoxic inappearance on arrival, speaking in full sentences in no respiratory distress. It is mild expiratorywheezes throughout with otherwise nonacute exam and patient ambulatory. 97% on room air on arrival.Lab investigations overall with chronic retention without acute acidosis, no leukocytosis and remaining lab investigations unremarkable. CT PE study showed left-sided infiltrate suggestive of pneumonia otherwise nonacute outside of baseline severe emphysema. Patient initially given prednisone for po ssible concomitant COPD exacerbation however believe patient's presentation more suspicious for PNAand believe patient is appropriate for outpatient management of this with initial dose of doxycycline given here in the emergency department after discussion with the ED pharmacist and given strict follow-up return precautions. Hemodynamically stable and well-appearing on multiple reassessments. Does have close follow-up with PCP and access to all of his medications at home. He was also firmly instructed on frequent use of ICS at home for which she was very agreeable with. Also encouraged on his cessation of tobacco and continued compliance. Patient given strict return precautions immediate return to the ED as well as follow-up instructions with his PCP within the week. Well-appearing at discharge and ambulatory without difficulty. Wolf's case was discussed with my attending physician who agrees with his ED management and final disposition. Please refer to their attestation to this encounter for additional information. Clinical Impression: 1. Community acquired pneumonia, unspecified laterality 2. History of COPD Medications Ordered/Given During ED Visit Medications sodium chloride (PF) (NS) 0.9 % contrast line flush 10 mL (has no administration in time range) And sodium chloride (PF) (NS) 0.9 % contrast line flush 80 mL (80 mL Intravenous Given 09/21/20 1405) And iopamidoL (ISOVUE-370) 76 % injection 75 mL (75 mL Intravenous Contrast Administered 09/21/20 1405) doxycycline (VIBRAMYCIN) oral solid 100 mg (has no administration in time range) sodium chloride 0.9% (NS) bolus 1,000 mL (1,000 mL Intravenous New Bag 09/21/20 1125) ipratropium-albuteroL (DUO-NEB) 0.5-2.5 mg/3 ml nebulizer solution 3 mL (3 mL Inhalation Given 09/21/20 1125) ipratropium-albuteroL (DUO-NEB) 0.5-2.5 mg/3 ml nebulizer solution 3 mL (3 mL Inhalation Given 09/21/20 1125) ipratropium-albuteroL (DUO-NEB) 0.5-2.5 mg/3 ml nebulizer solution 3 mL (3 mL Inhalation Given 09/21/20 1125) predniSONE (DELTASONE) tablet 40 mg (40 mg Oral Given 09/21/20 1257) Disposition: Patient is being discharged to home Laci Johnson DO ED Resident Physician [facility] (Please note that portions of this note have been completed with a voice recognition software. Efforts were made to correct any errors, but occasionally words are mis-transcribed.) Laci Johnson DO Resident 09/21/20 1503 * Chirag Randhawa RN - 09/21/2020 11:16 AM EDT Bed: 23 Expected date: Expected time: Means of arrival: Comments: Medic 14, chest pain, nitza * Patti Loera RN - 09/21/2020 11:15 AM EDT Pt arrives with left sided CP that is not radiating that feels like pins and needles. Pt states he originally thought he strained himself but the pain has been going on for a week and has not gone away. Pt states today he has coughed up blood 3x today, started as small amount but has increased. Pt states he is unsure if he is on blood thinners. Pt states he was diagnosed with PNA back in Apriland has been in and out of the hospital since then and finished hs last doses of antibiotics and steroids about 3 weeks ago. Pt also stats he was covid + back in April documented in this [id number] Miscellaneous Notes* ED Attestation Note - Ugo Ochoa MD - 09/21/2020 12:44 PM EDT Visit note: 60-year-old male with longstanding history of severe COPD with history of respiratory failure. The patient presents with chest pain today. He describes it as sharp. He states there is some associated hemoptysis. CT of the pulmonary arteries is obtained with no evidence of PE. Patient isnot significantly hypoxic. He is in no acute respiratory distress at this time. We will empiricallytreat for CAP. We are starting him on doxycycline. We have given him 24-hour follow-up instructionsfor any worsening of chest pain, shortness of breath or change in condition. He is appropriate discharge at this time. He does not require inpatient hospitalization. I personally saw, evaluated, and examined the patient. I reviewed and agreed with the resident's findings, including all diagnostic interpretations and treatment plans as documented. I was present during boyd portions of separately performed procedures. [facility] Diagnosis Community acquired pneumonia, unspecified laterality- Primary [facility] Diagnosis Right hip pain- Primary Pain in joint, pelvic region and thigh Essential hypertension Unspecified essential hypertension Tobacco use Arthritis of hip Unspecified arthropathy, pelvic region and thigh [facility]* Diagnosis Foreign body in esophagus, initial encounter- Primary [facility]* Diagnosis Primary osteoarthritis of right hip- Primary Exposure to SARS-associated coronavirus Primary osteoarthritis of right hip- Primary [facility] Diagnosis Primary osteoarthritis of right hip- Primary Primary osteoarthritis of right hip- Primary Primary osteoarthritis of right hip [facility] Diagnosis Primary osteoarthritis of right hip- Primary Preop pulmonary/respiratory exam- Primary Pre-operative respiratory examination Chronic obstructive pulmonary disease with acute exacerbation (HCC) Tobacco dependence Tobacco use disorder Homeless Lack of housing Illiterate Other psychological or physical stress, not elsewhere classified Primary osteoarthritis of right hip [facility] Diagnosis Primary osteoarthritis of right hip- Primary Primary osteoarthritis of right hip- Primary Primary osteoarthritis of right hip [facility] Diagnosis Primary osteoarthritis of right hip- Primary Exposure to SARS-associated coronavirus Primary osteoarthritis of right hip- Primary Primary osteoarthritis of right hip [facility] Diagnosis Primary osteoarthritis of right hip- Primary Exposure to SARS-associated coronavirus Primary osteoarthritis of right hip- Primary Primary osteoarthritis of right hip [facility] Diagnosis Primary osteoarthritis of right hip- Primary Exposure to SARS-associated coronavirus Primary osteoarthritis of right hip- Primary Primary osteoarthritis of right hip [facility] Diagnosis Primary osteoarthritis of right hip- Primary Pre-op exam- Primary Primary osteoarthritis of right hip Pre-operative cardiovascular examination Essential hypertension Unspecified essential hypertension Chronic obstructive pulmonary disease, unspecified COPD type (HCC) History of respiratory failure Tobacco abuse Tobacco use disorder Thoracic aortic aneurysm, without rupture (HCC) Edema, unspecified type Hyperlipidemia, unspecified hyperlipidemia type TIA (transient ischemic attack) Unspecified transient cerebral ischemia History of substance abuse (HCC) Other, mixed, or unspecified nondependent drug abuse, unspecified Peptic ulcer disease Peptic ulcer, unspecified site, unspecified as acute or chronic, without mention of hemorrhage, perforation, or obstruction No contraindication to deep vein thrombosis (DVT) prophylaxis Primary osteoarthritis of right hip [facility] Diagnosis Status post right hip replacement- Primary [facility]* Diagnosis History of total right hip replacement- Primary [facility] Diagnosis History of total right hip replacement- Primary [facility]* Diagnosis Chronic low back pain with left-sided sciatica, unspecified back pain laterality- Primary [facility]* Diagnosis Chronic low back pain with left-sided sciatica, unspecified back pain laterality- Primary Impaired sensation to light touch Left leg weakness Muscle weakness (generalized) Asymmetrical deep tendon reflexes [facility]* Diagnosis Chronic low back pain with left-sided sciatica, unspecified back pain laterality- Primary Sciatica of left side [facility]* Diagnosis Chronic low back pain with left-sided sciatica, unspecified back pain laterality- Primary [facility]* Diagnosis Acute on chronic respiratory failure (HCC)- Primary Acute exacerbation of chronic obstructive pulmonary disease (COPD) (HCC) Obstructive chronic bronchitis with exacerbation Acute respiratory failure with hypoxia (HCC) Tachycardia Unspecified tachycardia COPD exacerbation (HCC) Obstructive chronic bronchitis with exacerbation Essential hypertension Unspecified essential hypertension Opioid dependence (HCC) Opioid type dependence, unspecified abuse Tobacco use [facility]* Diagnosis Other emphysema- Primary PUD (peptic ulcer disease) Peptic ulcer, unspecified site, unspecified as acute or chronic, without mention of hemorrhage, perforation, or obstruction Cocaine abuse in remission Cocaine abuse, in remission Neurogenic claudication Spinal stenosis, lumbar region, with neurogenic claudication Tobacco abuse Tobacco use disorder Opioid use disorder in remission Health care maintenance Unspecified general medical examination Primary hypertension Unspecified essential hypertension Encounter for screening for lung cancer Cataract, unspecified cataract type, unspecified laterality Elevated PSA Elevated prostate specific antigen (PSA) DU (perforated duodenal ulcer) Chronic or unspecified duodenal ulcer with perforation, without mention of obstruction Essential hypertension Unspecified essential hypertension Benign prostatic hyperplasia, unspecified whether lower urinary tract symptoms present DDD (degenerative disc disease), lumbar Degeneration of lumbar or lumbosacral intervertebral disc [facility] Other emphysema Health care maintenance Unspecified general medical examination [facility]* Diagnosis Screening for lung cancer [facility]* Diagnosis COPD with acute exacerbation (HCC)- Primary COPD exacerbation (HCC) Obstructive chronic bronchitis with exacerbation Increased sputum production Tachypnea COPD with acute exacerbation (HCC) Acute on chronic respiratory failure with hypoxia ([facility]) [facility]* Diagnosis Chronic obstructive pulmonary disease with acute exacerbation- Primary Obstructive chronic bronchitis with exacerbation BPH (benign prostatic hyperplasia) Unspecified hyperplasia of prostate without urinary obstruction and other lower urinary tract symptoms (LUTS) Essential hypertension Unspecified essential hypertension History of substance use disorder History of TIA (transient ischemic attack) Transient ischemic attack (TIA), and cerebral infarction without residual deficits PUD (peptic ulcer disease) Peptic ulcer, unspecified site, unspecified as acute or chronic, without mention of hemorrhage, perforation, or obstruction [facility]* Diagnosis Chronic obstructive pulmonary disease with acute exacerbation- Primary Obstructive chronic bronchitis with exacerbation [facility] Diagnosis COPD with acute exacerbation (HCC)- Primary [facility]* Diagnosis Chronic obstructive pulmonary disease, unspecified COPD type (HCC)- Primary Essential hypertension Unspecified essential hypertension Bilateral hip pain Pain in joint, pelvic region and thigh H/O peptic ulcer Tobacco use Chest pain, unspecified type Paresthesia and pain of both upper extremities Thoracic aortic aneurysm, without rupture Multifocal pneumonia- Primary Non-intractable vomiting with nausea, unspecified vomiting type Chest pain, unspecified type Hypoxia Hypoxemia Hypokalemia Hypopotassemia Pneumonia due to infectious organism, unspecified laterality, unspecified part of lung Sepsis, due to unspecified organism, unspecified whether acute organ dysfunction present (HCC) Acute respiratory failure with hypoxia (HCC) COPD exacerbation (HCC) Obstructive chronic bronchitis with exacerbation Chest pain, atypical Nausea and vomiting, intractability of vomiting not specified, unspecified vomiting type Cigarette nicotine dependence without complication Cocaine use disorder (HCC) Bilateral hip pain Pain in joint, pelvic region and thigh Injury to penis- Primary Other injury of external genitals [facility]* Diagnosis Chronic obstructive pulmonary disease, unspecified COPD type (HCC)- Primary Essential hypertension Unspecified essential hypertension Bilateral hip pain Pain in joint, pelvic region and thigh H/O peptic ulcer Tobacco use Chest pain, unspecified type Paresthesia and pain of both upper extremities Thoracic aortic aneurysm, without rupture Multifocal pneumonia- Primary Non-intractable vomiting with nausea, unspecified vomiting type Chest pain, unspecified type Hypoxia Hypoxemia Hypokalemia Hypopotassemia Pneumonia due to infectious organism, unspecified laterality, unspecified part of lung Sepsis, due to unspecified organism, unspecified whether acute organ dysfunction present (HCC) Acute respiratory failure with hypoxia (HCC) COPD exacerbation (HCC) Obstructive chronic bronchitis with exacerbation Chest pain, atypical Nausea and vomiting, intractability of vomiting not specified, unspecified vomiting type Cigarette nicotine dependence without complication Cocaine use disorder (HCC) Bilateral hip pain Pain in joint, pelvic region and thigh Benign prostatic hyperplasia, unspecified whether lower urinary tract symptoms present- Primary Peyronie disease Peyronie's disease Elevated PSA Elevated prostate specific antigen (PSA) Bladder outlet obstruction [facility]* Diagnosis Chronic obstructive pulmonary disease, unspecified COPD type (HCC)- Primary Essential hypertension Unspecified essential hypertension Bilateral hip pain Pain in joint, pelvic region and thigh H/O peptic ulcer Tobacco use Chest pain, unspecified type Paresthesia and pain of both upper extremities Thoracic aortic aneurysm, without rupture Multifocal pneumonia- Primary Non-intractable vomiting with nausea, unspecified vomiting type Chest pain, unspecified type Hypoxia Hypoxemia Hypokalemia Hypopotassemia Pneumonia due to infectious organism, unspecified laterality, unspecified part of lung Sepsis, due to unspecified organism, unspecified whether acute organ dysfunction present (HCC) Acute respiratory failure with hypoxia (HCC) COPD exacerbation (HCC) Obstructive chronic bronchitis with exacerbation Chest pain, atypical Nausea and vomiting, intractability of vomiting not specified, unspecified vomiting type Cigarette nicotine dependence without complication Cocaine use disorder (HCC) Bilateral hip pain Pain in joint, pelvic region and thigh Peyronie disease- Primary Peyronie's disease BPH with obstruction/lower urinary tract symptoms Elevated PSA Elevated prostate specific antigen (PSA) documented in this encounter [facility]* Diagnosis Chronic obstructive pulmonary disease, unspecified COPD type (HCC)- Primary Essential hypertension Unspecified essential hypertension Bilateral hip pain Pain in joint, pelvic region and thigh H/O peptic ulcer Tobacco use Chest pain, unspecified type Paresthesia and pain of both upper extremities Thoracic aortic aneurysm, without rupture Multifocal pneumonia- Primary Non-intractable vomiting with nausea, unspecified vomiting type Chest pain, unspecified type Hypoxia Hypoxemia Hypokalemia Hypopotassemia Pneumonia due to infectious organism, unspecified laterality, unspecified part of lung Sepsis, due to unspecified organism, unspecified whether acute organ dysfunction present (HCC) Acute respiratory failure with hypoxia (HCC) COPD exacerbation (HCC) Obstructive chronic bronchitis with exacerbation Chest pain, atypical Nausea and vomiting, intractability of vomiting not specified, unspecified vomiting type Cigarette nicotine dependence without complication Cocaine use disorder (HCC) Bilateral hip pain Pain in joint, pelvic region and thigh Elevated PSA- Primary Elevated prostate specific antigen (PSA) [facility] noteNo assessment information availableWThe [facility] Work Phone: Evaluation note* Diagnosis Chronic obstructive pulmonary disease, unspecified COPD type (HCC)- Primary Essential hypertension Unspecified essential hypertension Bilateral hip pain Pain in joint, pelvic region and thigh H/O peptic ulcer Tobacco use Chest pain, unspecified type Paresthesia and pain of both upper extremities Thoracic aortic aneurysm, without rupture Multifocal pneumonia- Primary Non-intractable vomiting with nausea, unspecified vomiting type Chest pain, unspecified type Hypoxia Hypoxemia Hypokalemia Hypopotassemia Pneumonia due to infectious organism, unspecified laterality, unspecified part of lung Sepsis, due to unspecified organism, unspecified whether acute organ dysfunction present (HCC) Acute respiratory failure with hypoxia (HCC) COPD exacerbation (HCC) Obstructive chronic bronchitis with exacerbation Chest pain, atypical Nausea and vomiting, intractability of vomiting not specified, unspecified vomiting type Cigarette nicotine dependence without complication Cocaine use disorder (HCC) Bilateral hip pain Pain in joint, pelvic region and thigh Elevated PSA- Primary Elevated prostate specific antigen (PSA) [facility]* Diagnosis Chronic obstructive pulmonary disease, unspecified COPD type (HCC)- Primary Essential hypertension Unspecified essential hypertension Bilateral hip pain Pain in joint, pelvic region and thigh H/O peptic ulcer Tobacco use Chest pain, unspecified type Paresthesia and pain of both upper extremities Thoracic aortic aneurysm, without rupture Multifocal pneumonia- Primary Non-intractable vomiting with nausea, unspecified vomiting type Chest pain, unspecified type Hypoxia Hypoxemia Hypokalemia Hypopotassemia Pneumonia due to infectious organism, unspecified laterality, unspecified part of lung Sepsis, due to unspecified organism, unspecified whether acute organ dysfunction present (HCC) Acute respiratory failure with hypoxia (HCC) COPD exacerbation (HCC) Obstructive chronic bronchitis with exacerbation Chest pain, atypical Nausea and vomiting, intractability of vomiting not specified, unspecified vomiting type Cigarette nicotine dependence without complication Cocaine use disorder (HCC) Bilateral hip pain Pain in joint, pelvic region and thigh Elevated PSA- Primary Elevated prostate specific antigen (PSA) documented [facility]* Diagnosis Chronic obstructive pulmonary disease, unspecified COPD type (HCC)- Primary Essential hypertension Unspecified essential hypertension Bilateral hip pain Pain in joint, pelvic region and thigh H/O peptic ulcer Tobacco use Chest pain, unspecified type Paresthesia and pain of both upper extremities Thoracic aortic aneurysm, without rupture Multifocal pneumonia- Primary Non-intractable vomiting with nausea, unspecified vomiting type Chest pain, unspecified type Hypoxia Hypoxemia Hypokalemia Hypopotassemia Pneumonia due to infectious organism, unspecified laterality, unspecified part of lung Sepsis, due to unspecified organism, unspecified whether acute organ dysfunction present (HCC) Acute respiratory failure with hypoxia (HCC) COPD exacerbation (HCC) Obstructive chronic bronchitis with exacerbation Chest pain, atypical Nausea and vomiting, intractability of vomiting not specified, unspecified vomiting type Cigarette nicotine dependence without complication Cocaine use disorder (HCC) Bilateral hip pain Pain in joint, pelvic region and thigh Prostate cancer (HCC)- Primary Malignant neoplasm of prostate [facility]* Diagnosis Chronic obstructive pulmonary disease, unspecified COPD type (HCC)- Primary Essential hypertension Unspecified essential hypertension Bilateral hip pain Pain in joint, pelvic region and thigh H/O peptic ulcer Tobacco use Chest pain, unspecified type Paresthesia and pain of both upper extremities Thoracic aortic aneurysm, without rupture Multifocal pneumonia- Primary Non-intractable vomiting with nausea, unspecified vomiting type Chest pain, unspecified type Hypoxia Hypoxemia Hypokalemia Hypopotassemia Pneumonia due to infectious organism, unspecified laterality, unspecified part of lung Sepsis, due to unspecified organism, unspecified whether acute organ dysfunction present (HCC) Acute respiratory failure with hypoxia (HCC) COPD exacerbation (HCC) Obstructive chronic bronchitis with exacerbation Chest pain, atypical Nausea and vomiting, intractability of vomiting not specified, unspecified vomiting type Cigarette nicotine dependence without complication Cocaine use disorder (HCC) Bilateral hip pain Pain in joint, pelvic region and thigh Prostate cancer (HCC)- Primary Malignant neoplasm of prostate [facility]* Diagnosis Chronic obstructive pulmonary disease, unspecified COPD type (HCC)- Primary Essential hypertension Unspecified essential hypertension Bilateral hip pain Pain in joint, pelvic region and thigh H/O peptic ulcer Tobacco use Chest pain, unspecified type Paresthesia and pain of both upper extremities Thoracic aortic aneurysm, without rupture Multifocal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 daily for 2 daysStart: 08/14/20. Qty: 2 tablet, Refills: 0 doxycycline hyclate (VIBRA-TABS) 100 MG tablet Take 1 (one) tablet (100 mg total) by mouth 2 (two) times a day for 10 days . Qty: 20 tablet, Refills: 0 predniSONE (DELTASONE) 20 MG tablet Take 2 (two) tablets (40 mg total) by mouth daily for 3 days Start: 08/14/20. Qty: 6 tablet, Refills: 0 CONTINUE these medications which have CHANGED Details albuterol (PROVENTIL) 2.5 mg /3 mL (0.083 %) nebulizer solution Take 3 mL (2.5 mg total) by nebulization every 4 (four) hours as needed for wheezing Dx: J44.0 . Qty: 540 mL, Refills: 0 cyclobenzaprine (FLEXERIL) 10 MG tablet Take 1 (one) tablet (10 mg total) by mouth 2 (two) times a day as needed for muscle spasms . Qty: 20 tablet, Refills: 0 CONTINUE these medications which have NOT CHANGED Details albuterol 90 mcg/actuation inhaler Inhale 2 puffs every 4 (four) hours as needed for wheezing . budesonide-formoteroL (SYMBICORT) 160-4.5 mcg/actuation inhaler Inhale 2 puffs 2 (two) times a day . buprenorphine-nalOXone (Suboxone) 8-[address] 1 Film under the tongue daily . Comments: CHELSEA: guaiFENesin (Mucinex) 1,200 mg Ta12 Take 1,200 mg by mouth 2 (two) times a day as needed . loratadine (CLARITIN) 10 mg tablet Take 10 mg by mouth daily . montelukast (SINGULAIR) 10 mg tablet Take 1 (one) tablet (10 mg total) by mouth nightly . Qty: 30 tablet, Refills: 0 tamsulosin (FLOMAX) 0.4 mg capsule Take 0.4 mg by mouth daily . tiotropium bromide (Spiriva Respimat) 2.5 mcg/actuation Mist Inhale 5 mcg daily . Physician(s) Follow Up: Karma Mark, OBJECT ORIENTED PROGRAMMER [id number] [facility] [id number] Follow up Condition at Discharge: Stable Disposition: Home On day of discharge, I performed a final bedside evaluation including a physical exam. I reviewed discharge recommendations with the patient in person. Patient instructions, including activity, were given to the patient/family at discharge. Time spent on discharge: > 30 minutes Completed by: Betty Dean on 08/13/20, 1:25 PM documented in this encounter Discharge Instructions The following attachments cannot be sent through Care Everywhere. * COPD (Algerian) * COPD Exacerbation Plan (Algerian) * Cervical Myelopathy: Surgery: Pre-op (Algerian) * Cervical Disc Disease (Algerian) * Cervical Spinal Stenosis (Algerian) in this encounter* Nilsa Quigley PA-C - 01/10/2018 Please continue to use your inhaler and breathing treatments at home. Please follow up with the transitional care clinic. Please return to the emergency department with any new or worsening symptoms or any concerns you may have. The following attachments cannot be sent through Care Everywhere. * SOB (Shortness of Breath) (Algerian) in this encounter* Discharge Instr - Care Coordination - Coni Schmitz DO - 01/10/2017 5:09 PM EDT It is recommended that you take aspirin daily to prevent any further TIA and avoid any drug use. Please follow up with the clinic list given by the mental health social worker to establish with a doctor. It is important that you take a mediation to lower your cholesterol such as Lipitor. This medication is cheaper at [facility]. * Coni Schmitz DO - 01/10/2017 Transient Ischemic Attack: Care Instructions Your Care Instructions A transient ischemic attack (TIA) is when blood flow to a part of your brain is blocked for a shorttime. A TIA is like a stroke but usually lasts only a few minutes. A TIA does not cause lasting brain damage. Any vision problems, slurred speech, or other symptoms usually go away in 10 to 20 minutes. But they may last for up to 24 hours. TIAs are often warning signs of a stroke. Some people who have a TIA may have a stroke in the future. A stroke can cause symptoms like those of a TIA. But a stroke causes lasting damage to your brain. You can take steps to help prevent a stroke. One thing you can do is get early treatment. If you have other new symptoms, or if your symptoms do not get better, go back to the emergency room or call your doctor right away. Getting treatment right away may prevent long-term brain damage caused by a stroke. The doctor has checked you carefully, but problems can develop later. If you notice any problems ornew symptoms, get medical treatment right away. Follow-up care is a boyd part of your treatment and safety. Be sure to make and go to all appointments, and call your doctor if you are having problems. It's also a good idea to know your test resultsand keep a list of the medicines you take. How can you care for yourself at home? Medicines Be safe with medicines. Take your medicines exactly as prescribed. Call your doctor if you think you are having a problem with your medicine. If you take a blood thinner, such as aspirin, be sure you get instructions about how to take your medicine safely. Blood thinners can cause serious bleeding problems. Call your doctor if you are not able to take your medicines for any reason. Do not take any wowz-pko-nwteycq medicines or herbal products without talking to your doctor first. If you take control pills or hormone therapy, talk to your doctor. Ask if these treatments are right for you. Lifestyle changes Do not smoke. If you need help quitting, talk to your doctor about stop-smoking programs and medicines. Be active. If your doctor recommends it, get more exercise. Walking is a good choice. Bit by bit, increase the amount you walk every day. Try for at least 30 minutes on most days of the week. You also may want to swim, bike, or do other activities. Eat heart-healthy foods. These include fruits, vegetables, high-fiber foods, fish, and foods that are low in sodium, saturated fat, and trans fat. Stay at a healthy weight. Lose weight if you need to. Limit alcohol to 2 drinks a day for men and 1 drink a day for women. Staying healthy Manage other health problems such as diabetes, high blood pressure, and high cholesterol. Get the flu vaccine every year. When should you call for help? Call 911 anytime you think you may need emergency care. For example, call if: You have new or worse symptoms of a stroke. These may include: Sudden numbness, tingling, weakness, or loss of movement in your face, arm, or leg, especially on only one side of your body. Sudden vision changes. Sudden trouble speaking. Sudden confusion or trouble understanding simple statements. Sudden problems with walking or balance. A sudden, severe headache that is different from past headaches. Call 911 even if these symptoms go away in a few minutes. You feel like you are having another TIA. Watch closely for changes in your health, and be sure to contact your doctor if you have any problems. Where can you learn more? Log into your personal health record on [email or web address] and enter I231 in the Education box to learn more about Transient Ischemic Attack: Care Instructions. Current as of: November 10, 2015 Content Version: 11.2 [id number] [employer]. Care instructions adapted under license by your healthcare professional. If you have questions about a medical condition or this instruction, always ask your healthcare professional. [employer] disclaims any warranty or liability for your use of this information. in this encounter* Discharge Instr - Care Coordination - Coni Schmitz DO - 01/10/2017 5:09 PM EDT It is recommended that you take aspirin daily to prevent any further TIA and avoid any drug use. Please follow up with the clinic list given by the mental health social worker to establish with a doctor. It is important that you take a mediation to lower your cholesterol such as Lipitor. This medication is cheaper at [facility]. * Coni Schmitz DO - 01/10/2017 Transient Ischemic Attack: Care Instructions Your Care Instructions A transient ischemic attack (TIA) is when blood flow to a part of your brain is blocked for a shorttime. A TIA is like a stroke but usually lasts only a few minutes. A TIA does not cause lasting brain damage. Any vision problems, slurred speech, or other symptoms usually go away in 10 to 20 minutes. But they may last for up to 24 hours. TIAs are often warning signs of a stroke. Some people who have a TIA may have a stroke in the future. A stroke can cause symptoms like those of a TIA. But a stroke causes lasting damage to your brain. You can take steps to help prevent a stroke. One thing you can do is get early treatment. If you have other new symptoms, or if your symptoms do not get better, go back to the emergency room or call your doctor right away. Getting treatment right away may prevent long-term brain damage caused by a stroke. The doctor has checked you carefully, but problems can develop later. If you notice any problems ornew symptoms, get medical treatment right away. Follow-up care is a boyd part of your treatment and safety. Be sure to make and go to all appointments, and call your doctor if you are having problems. It's also a good idea to know your test resultsand keep a list of the medicines you take. How can you care for yourself at home? Medicines Be safe with medicines. Take your medicines exactly as prescribed. Call your doctor if you think you are having a problem with your medicine. If you take a blood thinner, such as aspirin, be sure you get instructions about how to take your medicine safely. Blood thinners can cause serious bleeding problems. Call your doctor if you are not able to take your medicines for any reason. Do not take any nhgh-nmx-xzxbocf medicines or herbal products without talking to your doctor first. If you take control pills or hormone therapy, talk to your doctor. Ask if these treatments are right for you. Lifestyle changes Do not smoke. If you need help quitting, talk to your doctor about stop-smoking programs and medicines. Be active. If your doctor recommends it, get more exercise. Walking is a good choice. Bit by bit, increase the amount you walk every day. Try for at least 30 minutes on most days of the week. You also may want to swim, bike, or do other activities. Eat heart-healthy foods. These include fruits, vegetables, high-fiber foods, fish, and foods that are low in sodium, saturated fat, and trans fat. Stay at a healthy weight. Lose weight if you need to. Limit alcohol to 2 drinks a day for men and 1 drink a day for women. Staying healthy Manage other health problems such as diabetes, high blood pressure, and high cholesterol. Get the flu vaccine every year. When should you call for help? Call 911 anytime you think you may need emergency care. For example, call if: You have new or worse symptoms of a stroke. These may include: Sudden numbness, tingling, weakness, or loss of movement in your face, arm, or leg, especially on only one side of your body. Sudden vision changes. Sudden trouble speaking. Sudden confusion or trouble understanding simple statements. Sudden problems with walking or balance. A sudden, severe headache that is different from past headaches. Call 911 even if these symptoms go away in a few minutes. You feel like you are having another TIA. Watch closely for changes in your health, and be sure to contact your doctor if you have any problems. Where can you learn more? Log into your personal health record on [email or web address] and enter I231 in the Education box to learn more about Transient Ischemic Attack: Care Instructions. Current as of: November 10, 2015 Content Version: 11.2 [id number] [employer]. Care instructions adapted under license by your healthcare professional. If you have questions about a medical condition or this instruction, always ask your healthcare professional. [employer] disclaims any warranty or liability for your use of this information. in this encounter* Attachments The following attachments cannot be sent through Care Everywhere. * COPD Exacerbation Plan (Algerian) documented in this encounter* Discharge Instr - AVS First Page* Kaitlynn Ambriz CNP - 11/03/2019 12:40 PM EDT You can wear compression stockings to help with blood pooling in your legs. You are to drink plentyof water and change positions slowly. * Additional Instructions* Kaitlynn Ambriz CNP - 11/03/2019 Fainting: Care Instructions Your Care Instructions When you faint, or pass out, you lose consciousness for a short time. A brief drop in blood flow tothe brain often causes it. When you fall or lie down, more blood flows to your brain and you regainconsciousness. Emotional stress, pain, or overheating especially if you have been standing can make you faint. In these cases, fainting is usually not serious. But fainting can be a sign of a more serious problem. Your doctor may want you to have more tests to rule out other causes. The treatment you need depends on the reason why you fainted. The doctor has checked you carefully, but problems can develop later. If you notice any problems ornew symptoms, get medical treatment right away. Follow-up care is a boyd part of your treatment and safety. Be sure to make and go to all appointments, and call your doctor if you are having problems. It's also a good idea to know your test resultsand keep a list of the medicines you take. How can you care for yourself at home? Drink plenty of fluids to prevent dehydration. If you have kidney, heart, or liver disease and haveto limit fluids, talk with your doctor before you increase your fluid intake. When should you call for help? Call 911 anytime you think you may need emergency care. For example, call if: You have symptoms of a heart problem. These may include: ? Chest pain or pressure. ? Severe trouble breathing. ? A fast or irregular heartbeat. ? Lightheadedness or sudden weakness. ? Coughing up pink, foamy mucus. ? Passing out. After you call 911, the piped buttonhole machine operator may tell you to chew 1 adult-strength or 2 to 4 low-dose aspirin. Wait for an ambulance. Do not try to drive yourself. You have symptoms of a stroke. These may include: ? Sudden numbness, tingling, weakness, or loss of movement in your face, arm, or leg, especially ononly one side of your body. ? Sudden vision changes. ? Sudden trouble speaking. ? Sudden confusion or trouble understanding simple statements. ? Sudden problems with walking or balance. ? A sudden, severe headache that is different from past headaches. You passed out (lost consciousness) again. Watch closely for changes in your health, and be sure to contact your doctor if: You do not get better as expected. Where can you learn more? Log into your personal health record on [email or web address] and enter A848 in the Education box to learn more about Fainting: Care Instructions. Current as of: December 01, 2018 Content Version: 12.3 [id number] [employer]. Care instructions adapted under license by your healthcare professional. If you have questions about a medical condition or this instruction, always ask your healthcare professional. [employer] disclaims any warranty or liability for your use of this information. documented in this encounter* Instructions* Lotus Cruz CNP - 01/14/2020 Seek medical attention if you have worsening symptoms or other concerns. Please follow up with your family doctor or one of your choosing. You may find a provider through the [facility] Physician Referral Service by calling [phone]) or by visiting [email or web address], Thank You for choosing [facility]! You were provided with a new spacer for your inhalers. * Attachments The following attachments cannot be sent through Care Everywhere. * Smoking: Stopping (Algerian) * SOB (Shortness of Breath) (Algerian) * COPD: General Info (Algerian) documented in this encounter* Discharge Instr - Care Coordination* Lotus Kimball RN - 04/12/2020 8:03 AM EST Information about a FREE program to lower the cost of your prescriptions including your narcotic pain medication What are GoodRx coupons? GoodRx coupons will help you pay less than the perez steward for your prescription. They re free to use and are accepted at virtually every [place] pharmacy. [facility] does not accept good rx coupons for pain medication (narcotics) at this time. Your pharmacist will know how to enter the codes on the coupon to pull up the lowest discount available. How do I use a GoodRx coupon? It s similar to using a coupon at a grocery store. Simply print the coupon and bring it with you [facility] when you cotton picking machine operator your prescription. The pharmacist will enter the numbers on the coupon into their system to find the discount. Don t have a printer or want to save paper and ink cartridges? You can show the coupon on your phone by: A) Sending the coupon to yourself via email or text B) Or using the mobile asher C) Visiting our mobile website [email or web address] What if I have insurance or Medicare? Many insurance plans have high deductibles or limited formularies that don t cover the drugs you need. Many insurance plans require extra authorizations for narcotic pain medication that can delay getting your medication filled. GoodRx may be able to find you a lower steward than your insurance co-pay. Hundreds of generic medications are available for $4 or even free without insurance. * Additional Instructions* Ramiro Lisarodrigue Santana, OBJECT ORIENTED PROGRAMMER - 04/12/2020 Chronic Obstructive Pulmonary Disease (COPD): Care Instructions Your Care Instructions Chronic obstructive pulmonary disease (COPD) is a general term for a group of lung diseases, including emphysema and chronic bronchitis. People with COPD have decreased airflow in and out of the lungs, which makes it hard to breathe. The airways also can get clogged with thick mucus. Cigarette smoking is a major cause of COPD. Although there is no cure for COPD, you can slow its progress. Following your treatment plan and taking care of yourself can help you feel better and live longer. Follow-up care is a boyd part of your treatment and safety. Be sure to make and go to all appointments, and call your doctor if you are having problems. It's also a good idea to know your test resultsand keep a list of the medicines you take. How can you care for yourself at home? Staying healthy Do not smoke. This is the most important step you can take to prevent more damage to your lungs. Ifyou need help quitting, talk to your doctor about stop- smoking programs and medicines. These can increase your chances of quitting for good. Avoid colds and flu. Get a pneumococcal vaccine shot. If you have had one before, ask your doctor whether you need a second dose. Get the flu vaccine every fall. If you must be around people with colds or the flu, wash your hands often. Avoid secondhand smoke, air pollution, and high altitudes. Also avoid cold, dry air and hot, humid air. Stay at home with your windows closed when air pollution is bad. Medicines and oxygen therapy Take your medicines exactly as prescribed. Call your doctor if you think you are having a problem with your medicine. You may be taking medicines such as: ? Bronchodilators. These help open your airways and make breathing easier. They are either short-acting (work for 6 to 9 hours) or long-acting (work for 24 hours). You inhale most bronchodilators, sothey start to act quickly. Always carry your quick-relief inhaler with you in case you need it while you are away from home. ? Corticosteroids (prednisone, budesonide). These reduce airway inflammation. They come in pill or inhaled form. You must take these medicines every day for them to work well. Ask your doctor or pharmacist if a spacer is right for you. A spacer may help you get more inhaled medicine to your lungs. If you use one, ask how to use it properly. Do not take any vitamins, zpic-gty-bnwlxsv medicine, or herbal products without talking to your doctor first. If your doctor prescribed antibiotics, take them as directed. Do not stop taking them just because you feel better. You need to take the full course of antibiotics. If you use oxygen therapy, use the flow rate your doctor has recommended. Don't change it without talking to your doctor first. Oxygen therapy boosts the amount of oxygen in your blood and helps you breathe easier. Activity Get regular exercise. Walking is an easy way to get exercise. Start out slowly, and walk a little more each day. Pay attention to your breathing. You are exercising too hard if you can't talk while you exercise. 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 Learn breathing methods such as breathing through pursed lips to help you become less short of breath. If your doctor has not set you up with a pulmonary rehabilitation program, ask if rehab is right for you. Rehab includes exercise programs, education about your disease and how to manage it, help with diet and other changes, and emotional support. Diet Eat regular, healthy meals. Use bronchodilators about 1 hour before you eat to make it easier to eat. Eat several small meals instead of three large ones. Drink beverages at the end of the meal. Avoid foods that are hard to chew. Eat foods that contain protein so you don't lose muscle mass. Talk with your doctor if you gain too much weight or if you lose weight without trying. Mental health Talk to your family, friends, or a therapist about your feelings. Some people feel frightened, angry, hopeless, helpless, and even guilty. Talking openly about bad feelings can help you cope. If these feelings last, talk to your doctor. When should you call for help? Call 911 anytime you think you may need emergency care. For example, call if: You have severe trouble breathing. Call your doctor now or seek immediate medical care if: You have new or worse trouble breathing. You cough up blood. You have a fever. Watch closely for changes in your health, and be sure to contact your doctor if: You cough more deeply or more often, especially if you notice more mucus or a change in the color of your mucus. You have new or worse swelling in your legs or belly. You are not getting better as expected. Where can you learn more? Log into your personal health record on https://[employer] and enter X915 in the Education box to learn more about Chronic Obstructive Pulmonary Disease (COPD): Care Instructions. Current as of: August 01, 2019 Content Version: 12.6 [employer]. Care instructions adapted under license by your healthcare professional. If you have questions about a medical condition or this instruction, always ask your healthcare professional. [employer] disclaims any warranty or liability for your use of this information. documented in this encounter* Instructions* Heriberto Billings MD - 05/28/2020 Please return to the emergency department immediately for any new or concerning symptoms including a fever over 101.4, chest pain, difficulty breathing, uncontrolled bleeding, vomiting to an extent that you are unable to drink water, new or worsening numbness or weakness, confusion, and difficulty speaking. It is very important that you follow-up with your primary care provider within the next 1-2 days. Primary care providers often have room in their schedules for patients who were recently in the emergency department; please make sure you mention this visit when scheduling your appointment. If you are unable to schedule an appointment, you are welcome to return to this emergency department for further evaluation. * Attachments The following attachments cannot be sent through Care Everywhere. * COPD Exacerbation Plan (Algerian) documented in this encounter* Attachments The following attachments cannot be sent through Care Everywhere. * COPD Exacerbation Plan (Algerian) documented in this encounter* Attachments The following attachments cannot be sent through Care Everywhere. * Fall Prevention (Algerian) documented in this encounter* Instructions* Kaitlynn Ambriz CNP - 07/19/2020 Chronic Obstructive Pulmonary Disease (COPD): Care Instructions Your Care Instructions Chronic obstructive pulmonary disease (COPD) is a general term for a group of lung diseases, including emphysema and chronic bronchitis. People with COPD have decreased airflow in and out of the lungs, which makes it hard to breathe. The airways also can get clogged with thick mucus. Cigarette smoking is a major cause of COPD. Although there is no cure for COPD, you can slow its progress. Following your treatment plan and taking care of yourself can help you feel better and live longer. Follow-up care is a boyd part of your treatment and safety. Be sure to make and go to all appointments, and call your doctor if you are having problems. It's also a good idea to know your test resultsand keep a list of the medicines you take. How can you care for yourself at home? Staying healthy Do not smoke. This is the most important step you can take to prevent more damage to your lungs. Ifyou need help quitting, talk to your doctor about stop- smoking programs and medicines. These can increase your chances of quitting for good. Avoid colds and flu. Get a pneumococcal vaccine shot. If you have had one before, ask your doctor whether you need a second dose. Get the flu vaccine every fall. If you must be around people with colds or the flu, wash your hands often. Avoid secondhand smoke, air pollution, and high altitudes. Also avoid cold, dry air and hot, humid air. Stay at home with your windows closed when air pollution is bad. Medicines and oxygen therapy Take your medicines exactly as prescribed. Call your doctor if you think you are having a problem with your medicine. You may be taking medicines such as: ? Bronchodilators. These help open your airways and make breathing easier. They are either short-acting (work for 6 to 9 hours) or long-acting (work for 24 hours). You inhale most bronchodilators, sothey start to act quickly. Always carry your quick-relief inhaler with you in case you need it while you are away from home. ? Corticosteroids (prednisone, budesonide). These reduce airway inflammation. They come in pill or inhaled form. You must take these medicines every day for them to work well. Ask your doctor or pharmacist if a spacer is right for you. A spacer may help you get more inhaled medicine to your lungs. If you use one, ask how to use it properly. Do not take any vitamins, bhhs-rcd-dpvvnad medicine, or herbal products without talking to your doctor first. If your doctor prescribed antibiotics, take them as directed. Do not stop taking them just because you feel better. You need to take the full course of antibiotics. If you use oxygen therapy, use the flow rate your doctor has recommended. Don't change it without talking to your doctor first. Oxygen therapy boosts the amount of oxygen in your blood and helps you breathe easier. Activity Get regular exercise. Walking is an easy way to get exercise. Start out slowly, and walk a little more each day. Pay attention to your breathing. You are exercising too hard if you can't talk while you exercise. 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 Learn breathing methods such as breathing through pursed lips to help you become less short of breath. If your doctor has not set you up with a pulmonary rehabilitation program, ask if rehab is right for you. Rehab includes exercise programs, education about your disease and how to manage it, help with diet and other changes, and emotional support. Diet Eat regular, healthy meals. Use bronchodilators about 1 hour before you eat to make it easier to eat. Eat several small meals instead of three large ones. Drink beverages at the end of the meal. Avoid foods that are hard to chew. Eat foods that contain protein so you don't lose muscle mass. Talk with your doctor if you gain too much weight or if you lose weight without trying. Mental health Talk to your family, friends, or a therapist about your feelings. Some people feel frightened, angry, hopeless, helpless, and even guilty. Talking openly about bad feelings can help you cope. If these feelings last, talk to your doctor. When should you call for help? Call 911 anytime you think you may need emergency care. For example, call if: You have severe trouble breathing. Call your doctor now or seek immediate medical care if: You have new or worse trouble breathing. You cough up blood. You have a fever. Watch closely for changes in your health, and be sure to contact your doctor if: You cough more deeply or more often, especially if you notice more mucus or a change in the color of your mucus. You have new or worse swelling in your legs or belly. You are not getting better as expected. Where can you learn more? Log into your personal health record on [email or web address] and enter X915 in the Education box to learn more about Chronic Obstructive Pulmonary Disease (COPD): Care Instructions. Current as of: August 01, 2019 Content Version: 12.7 Source Audio. Care instructions adapted under license by your healthcare professional. If you have questions about a medical condition or this instruction, always ask your healthcare professional. Source Audio disclaims any warranty or liability for your use of this information. Aspiration Pneumonia: Care Instructions Your Care Instructions Aspiration pneumonia is an inflammation of the lungs. It may occur after you breathe in large amounts of foreign material, such as food, liquid, vomit, or mucus. Aspiration may happen because of a health problem that makes it hard to swallow. These problems include stroke or seizure. Pneumonia makes it hard to breathe. Follow-up care is a boyd part of your treatment and safety. Be sure to make and go to all appointments, and call your doctor if you are having problems. It's also a good idea to know your test resultsand keep a list of the medicines you take. How can you care for yourself at home? To help with swallowing You may need to do exercises to train your muscles to work together to help you swallow. You may also need to learn how to position your body or how to put food in your mouth to be able to swallow better. You may need to change the foods you eat. Your doctor may tell you to eat certain foods and liquidsto make swallowing easier. You may need to change how you prepare foods. For example, you may need to add thickeners to some liquids, or puree certain foods in a wireless sales associate. To help with pneumonia Take your antibiotics as directed. Do not stop taking them just because you feel better. You need to take the full course of antibiotics. Take your medicines exactly as prescribed. For example, your doctor may have given you medicine that makes breathing easier. Call your doctor if you think you are having a problem with your medicine. Get plenty of rest and sleep. You may feel weak and tired for a while, but your energy level will improve with time. Take care of your cough so you can rest. A cough that brings up mucus from your lungs is common with pneumonia. It is one way your body gets rid of the infection. But if coughing keeps you from resting or causes severe fatigue and chest-wall pain, talk to your doctor. He or she may suggest that youtake a medicine to reduce the cough. Use a humidifier to increase the moisture in the air. Dry air makes coughing worse. Follow the instructions for cleaning the machine. Do not smoke, and avoid others' smoke. Smoke will make your cough last longer. If you need help quitting, talk to your doctor about stop-smoking programs and medicines. These can increase your chances of quitting for good. Take an agpl-trr-clqobfv pain medicine, such as acetaminophen (Tylenol), ibuprofen (Advil, Motrin),or naproxen (Aleve) to help reduce fever and reduce chest pain caused by coughing. Read and follow all instructions on the label. Do not take two or more pain medicines at the same time unless the doctor told you to. Many pain medicines have acetaminophen, which is Tylenol. Too much acetaminophen (Tylenol) can be harmful. When should you call for help? Call 911 anytime you think you may need emergency care. For example, call if: You have severe trouble breathing. Call your doctor now or seek immediate medical care if: You have a new or higher fever. You have new or worse trouble breathing. You cough up blood. You are dizzy or lightheaded, or you feel like you may faint. Watch closely for changes in your health, and be sure to contact your doctor if: You do not get better as expected. You are coughing more deeply or more often. Where can you learn more? Log into your personal health record on [email or web address] [email or web address] and enter D757 in the Education box to learn more about Aspiration Pneumonia: Care Instructions. Current as of: August 01, 2019 Content Version: 12.7 Source Audio. Care instructions adapted under license by your healthcare professional. If you have questions about a medical condition or this instruction, always ask your healthcare professional. Source Audio disclaims any warranty or liability for your use of this information. documented in this encounter* Discharge Instr - AVS First Page* Kaitlynn Ambriz CNP - 07/26/2020 10:15 AM EST YOU ARE TO LIMIT THE SALT IN YOUR DIET YOU ARE TO TAKE YOUR hydrochlorothiazide DAILY TO HELP WITH YOUR LEG SWELLING AT HOME * Additional Instructions* Kaitlynn Ambriz, OBJECT ORIENTED PROGRAMMER - 07/26/2020 Leg and Ankle Edema: Care Instructions Your Care Instructions Swelling in the legs, ankles, and feet is called edema. It is common after you sit or stand for a while. Long plane flights or car rides often cause swelling in the legs and feet. You may also have swelling if you have to stand for long periods of time at your job. Problems with the veins in the legs (varicose veins) and changes in hormones can also cause swelling. Sometimes the swelling in the ankles and feet is caused by a more serious problem, such as heart failure, infection, blood clots, or liver or kidney disease. Follow-up care is a boyd part of your treatment and safety. Be sure to make and go to all appointments, and call your doctor if you are having problems. It's also a good idea to know your test resultsand keep a list of the medicines you take. How can you care for yourself at home? If your doctor gave you medicine, take it as prescribed. Call your doctor if you think you are having a problem with your medicine. Whenever you are resting, raise your legs up. Try to keep the swollen area higher than the level ofyour heart. Take breaks from standing or sitting in one position. ? Walk around to increase the blood flow in your lower legs. ? Move your feet and ankles often while you stand, or tighten and relax your leg muscles. Wear support stockings. Put them on in the morning, before swelling gets worse. Eat a balanced diet. Lose weight if you need to. Limit the amount of salt (sodium) in your diet. Salt holds fluid in the body and may increase swelling. When should you call for help? Call 911 anytime you think you may need emergency care. For example, call if: You have symptoms of a blood clot in your lung (called a pulmonary embolism). These may include: ? Sudden chest pain. ? Trouble breathing. ? Coughing up blood. Call your doctor now or seek immediate medical care if: You have signs of a blood clot, such as: ? Pain in your calf, back of the knee, thigh, or groin. ? Redness and swelling in your leg or groin. You have symptoms of infection, such as: ? Increased pain, swelling, warmth, or redness. ? Red streaks or pus. ? A fever. Watch closely for changes in your health, and be sure to contact your doctor if: Your swelling is getting worse. You have new or worsening pain in your legs. You do not get better as expected. Where can you learn more? Log into your personal health record on [email or web address] and enter N696 in the Education box to learn more about Leg and Ankle Edema: Care Instructions. Current as of: August 03, 2019 Content Version: 12.7 Source Audio. Care instructions adapted under license by your healthcare professional. If you have questions about a medical condition or this instruction, always ask your healthcare professional. Source Audio disclaims any warranty or liability for your use of this information. Chronic Obstructive Pulmonary Disease (COPD): Care Instructions Your Care Instructions Chronic obstructive pulmonary disease (COPD) is a general term for a group of lung diseases, including emphysema and chronic bronchitis. People with COPD have decreased airflow in and out of the lungs, which makes it hard to breathe. The airways also can get clogged with thick mucus. Cigarette smoking is a major cause of COPD. Although there is no cure for COPD, you can slow its progress. Following your treatment plan and taking care of yourself can help you feel better and live longer. Follow-up care is a boyd part of your treatment and safety. Be sure to make and go to all appointments, and call your doctor if you are having problems. It's also a good idea to know your test resultsand keep a list of the medicines you take. How can you care for yourself at home? Staying healthy Do not smoke. This is the most important step you can take to prevent more damage to your lungs. Ifyou need help quitting, talk to your doctor about stop- smoking programs and medicines. These can increase your chances of quitting for good. Avoid colds and flu. Get a pneumococcal vaccine shot. If you have had one before, ask your doctor whether you need a second dose. Get the flu vaccine every fall. If you must be around people with colds or the flu, wash your hands often. Avoid secondhand smoke, air pollution, and high altitudes. Also avoid cold, dry air and hot, humid air. Stay at home with your windows closed when air pollution is bad. Medicines and oxygen therapy Take your medicines exactly as prescribed. Call your doctor if you think you are having a problem with your medicine. You may be taking medicines such as: ? Bronchodilators. These help open your airways and make breathing easier. They are either short-acting (work for 6 to 9 hours) or long-acting (work for 24 hours). You inhale most bronchodilators, sothey start to act quickly. Always carry your quick-relief inhaler with you in case you need it while you are away from home. ? Corticosteroids (prednisone, budesonide). These reduce airway inflammation. They come in pill or inhaled form. You must take these medicines every day for them to work well. Ask your doctor or pharmacist if a spacer is right for you. A spacer may help you get more inhaled medicine to your lungs. If you use one, ask how to use it properly. Do not take any vitamins, eywc-qui-acyoery medicine, or herbal products without talking to your doctor first. If your doctor prescribed antibiotics, take them as directed. Do not stop taking them just because you feel better. You need to take the full course of antibiotics. If you use oxygen therapy, use the flow rate your doctor has recommended. Don't change it without talking to your doctor first. Oxygen therapy boosts the amount of oxygen in your blood and helps you breathe easier. Activity Get regular exercise. Walking is an easy way to get exercise. Start out slowly, and walk a little more each day. Pay attention to your breathing. You are exercising too hard if you can't talk while you exercise. 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 Learn breathing methods such as breathing through pursed lips to help you become less short of breath. If your doctor has not set you up with a pulmonary rehabilitation program, ask if rehab is right for you. Rehab includes exercise programs, education about your disease and how to manage it, help with diet and other changes, and emotional support. Diet Eat regular, healthy meals. Use bronchodilators about 1 hour before you eat to make it easier to eat. Eat several small meals instead of three large ones. Drink beverages at the end of the meal. Avoid foods that are hard to chew. Eat foods that contain protein so you don't lose muscle mass. Talk with your doctor if you gain too much weight or if you lose weight without trying. Mental health Talk to your family, friends, or a therapist about your feelings. Some people feel frightened, angry, hopeless, helpless, and even guilty. Talking openly about bad feelings can help you cope. If these feelings last, talk to your doctor. When should you call for help? Call 911 anytime you think you may need emergency care. For example, call if: You have severe trouble breathing. Call your doctor now or seek immediate medical care if: You have new or worse trouble breathing. You cough up blood. You have a fever. Watch closely for changes in your health, and be sure to contact your doctor if: You cough more deeply or more often, especially if you notice more mucus or a change in the color of your mucus. You have new or worse swelling in your legs or belly. You are not getting better as expected. Where can you learn more? Log into your personal health record on [email or web address] and enter X915 in the Education box to learn more about Chronic Obstructive Pulmonary Disease (COPD): Care Instructions. Current as of: August 01, 2019 Content Version: 12.7 Source Audio. Care instructions adapted under license by your healthcare professional. If you have questions about a medical condition or this instruction, always ask your healthcare professional. Source Audio disclaims any warranty or liability for your use of this information. documented in this encounter* Instructions* Alcides Call, LAM - 07/26/2020 The medical team and staff of the Emergency Department would like to thank you for choosing our facility for your health care needs. Our goal is to provide you with exceptional service. You may be receiving a survey in the mail following your visit. Because your feedback is very important to us, wehope you will take time to complete and return the survey - we are striving for excellent patient care! . Return for worsening symptoms as we discussed! Hope you feel better! You have undergone an emergency evaluation today. This is not a substitute for a comprehensive physical exam by a primary care physician. Please follow up with your primary care physician. There are often findings on laboratory evaluation and/or radiographic studies (x-rays, ct) that require follow up and further testing, but are not related to your emergency condition today Please follow up with your family doctor or one of your choosing. You may find a provider through the [facility] Physician Referral Service by calling [phone] ([phone]) or by visiting [email or web address] TeQ/findadoctor Seek medical attention immediately if you have worsening symptoms or other concerns. Thank You for choosing us for your Emergency Care! * Attachments The following attachments cannot be sent through Care Everywhere. * Fainting (Algerian) documented in this encounter* Discharge Instr - Care Coordination* [place] Dc RN - 08/09/2020 8:01 AM EST [employer] [facility]: *For more information or other resources, visit [facility]'s website: [email or web address] Seven or call: [phone] [place] 58 Units Type: Senior/Affordable 1 Bedroom [place] [address] [place] [address] [employer] [facility] [phone] [email or web address] Nadia is a senior community located in [place], [place]. Pen[place] offers 1 bedroom apartments to residents [address] [facility] 75 Units Type: Affordable [facility] Housing [address] [place], [place] [address] 1 & 2 Bedroom Garden Style [employer] [facility] [phone] [email or web address] [facility] is a sprawling community featuring 1 and 2 bedroom apartments dedicated to skilled nursing at its finest. [facility] 53 Units Type: Affordable Family [address] [place], [place] [address] 2 Bedroom [facility] with unfinished basements [employer] [phone] [email or web address] [facility] is an affordable housing development located on the east side of [place]. Easy access to ARMENTA transportation. [place] 63 Units Type: Senior/Affordable 1 Bedroom [place] [address] [place] [address] [facility] [phone] [email or web address]/ [place] is a senior community located on the eastside of [place], [place]. [facility] offers 1 bedroom cottage and garden style apartments to residents 62 or older. Scott Maya 204 Units Type: Market Rate Family Housing [address] [place], [place] [address] 1-2 Bedroom Garden Style Property [employer] [phone] [email or web address] Built in 2014, the property boasts 1 and 2 bedroom garden style apartments. Scott Maya is a marketrate property offering workforce rents. Ascencion Weber 50 Units Type: Family/Affordable [address] [place] [address] Property Management Co. RNDOMN Office Located at [facility] 2-3 Bedroom Townhomes, 2 Bedroom Handicap Accessible [place]Flats [phone] [email or web address]/ Ascencion Estlarry is an affordable housing development in the [facility] Area. Greek Velásquez 72 Units Type: Affordable Family Housing [address] [place], [place] [address] 2-3 Bedroom Garden and Townhomes [employer] [phone] [email or web address] Greek Velásquez is an affordable housing development located on the south side of [place] offering spacious apartment homes to area families. Serafin Sierra 100 Units Type: Affordable Senior Housing [address] [place], [place] [address] 1 Bedroom Garden Style [employer]. [facility] [phone] [email or web address] Serafin Sierra is an affordable housing development for elderly residents 62 years and older. [place] is located east of [facility] between [address] [place] [address] and [facility]. [place] Click to view more 56 Units Family/Affordable 2 Bedroom Townhomes [address] [place] [address] [employer]. RNDOMN [phone] [email or web address]/ [facility] is an affordable housing development on the northeast side [facility] between [facility] and [facility]. [place] at [facility] 87 Units Type: Family/Mixed Income 1-3 Bedroom Townhouses and Garden-Style Flats [address] [place] [address] Property Management Co. [facility] [phone] [email or web address] [email or web address] TeQ/ [facility] 71 Units Type: Affordable Senior Housing [address] [place], [place] [address] 1 bedroom Garden Style Property Management Co. Warply [phone] [email or web address]/ [facility] is an affordable housing development for residents age 62 and over. [employer] offers one-bedroom units. [place] 95 units Type: Affordable Family Housing [address] [place], [place] [address] 2-4 Bedroom ranch style and Townhomes some with garages Property [employer]. [employer] [phone] [email or web address] [place] is an affordable housing development in [place]. [address] 100 Units Type: Family/Mixed Income 1, 2, and 3 Bedroom Lofts and Townhomes [address] [place] [address] Property Management Co. [place] [employer] [phone] [email or web address]/ [facility] 80 Units Type: Family/Affordable 2-3 Bedroom Townhouses [address] [place] [address] Property Management Co. [employer] [phone] [email or web address]/ [facility] is an affordable housing development on the northeast side [facility] between [facility] and [facility]. [facility] 104 Units Type: Senior/Affordable 1 Bedroom Garden Style Flats [address] [place] [address] Property Management Co. Former[facility] [phone] [email or web address] [facility] [place] 148 Units Type: Affordable Family Housing [address] [place], [place] [address] 2 & 3 Bedroom [facility] Property Management CoCognovant [phone] [email or web address] [place] is an affordable housing development on the west side of [place] just south of the [address] and [address]. Rosestanislaw 230 Units Type: Family/Affordable 1-4 Bedroom Townhouses and Single-Family Homes [address] [place], [place] Property Management Co. MccaysvilleAula 7 [facility] [phone] [email or web address].[email or web address]/ [facility] is a 230-unit community blending 160 townhouses with 70 single-family homes. Units are available with up to four bedrooms. The property is situated in the [facility]. Garret Martinez 116 Units Type: Affordable Family Housing [address] [place], [place] [address] 2 & 3 Bedroom [facility] Property Management Co. [facility] [phone] [email or web address] [email or web address] Garret Martinez is an affordable housing development adjacent to the nemours foundationic [facility]. Its boundaries are [facility]), [facility] ([place]), [facility] ([place]) and[facility] ([facility]). [facility] 120 Units Type: Affordable Family Housing [address] [place], [place] [address] 1 Bedroom Garden Style Property Management Co. The [employer] [phone] [email or web address] [facility] is designated for elderly residents 62 years of age or older. RoscoeStorefront 86 Units Type: Family/Affordable 2-3 Bedroom Townhouses and Garden-Style Flats [address] [place] [address] Property Management Co. [facility] Office Located at [facility] ([address] [place] [address]) [phone] [email or web address]/ [employer] 86 garden and townhouse style units. [employer] is an affordable housing development located in [facility]; its boundaries are [place] ([place]), [facility] (east) and [facility] (west). [facility] 137 Units Type: Affordable Family Housing [address] [place], [place] [address] 2-4 Bedroom [facility] with unfinished basements Property Management Co. [facility] [phone] [email or web address] [place] is an affordable housing development located on the near east side of [place] adjacent to the [facility]. [place] is comprised of a mix of duplex and single-family homes. Transportation options include convenient access to public transportation on the ARMENTA bus line. Fatemeh Morelos 28 Units Type: Mixed Income 2, 2+, and 3 Bedroom Townhomes [address] [place] [address] Property Management Co. [facility] Located at [facility] ([address] [place] [address]) [phone] [email or web address] The Guera is located in the historic [facility] in [facility] Near East side. Usman Sierra 100 Units Type: Affordable Senior Housing [address] [place] [id number] 1 Bedroom Garden Style [employer] Management Co. [employer] [phone] [email or web address] Usman Sierra is an affordable housing development built in the [facility] [place] is conveniently located on the west side of [facility] between [facility] and [facility]. Usman s three-story brick building houses 100 single-bedroom elderly units. DEPARTMENT OF JOBS AND FAMILY SERVICES SNAP, Medicaid, unemployment,child supportCall for locations, J.O.I.N. Assistance with utilities, glasses, prescriptions 578 [facility], M F 10-11:30 & 12:00 [place] [employer] Food, health care, childcare, energy assistance,veterans, etc.Call for locations: SOCIAL SECURITY ADMINISTRATION M,T,W,F-9am-4pm W 9am-[address]da[address] [phone] [facility] [phone] [facility] [address] [facility] Shower and Laundry Zfn[address]eql[address], [phone]-[phone] Wed & Fri ? [facility]ISTANCE [facility] Help for tenants facing eviction by working w/landlord to maintain their [phone] ext. capital region medical centerFancyBox.Clean TeQ ? FREE MEALS AISHWARYA PRESBYTERIAN [address], Sat 11:30 1:30 [facility] [address], Fdo, Tue, , Fri - 7:00Wed. lunch 12:00-2:00 [facility], S, T, Th - 5:30, W 6:00 COMMUNITY KITCHEN [address] [facility], O-Sat - 8:30-9:30 & M-Sat - 11:30-1:00 [facility] (MEN) [address] [facility], V F-6:30 - 7:15 Sat & Sun - 8:30-9:30Every Day - 12:30 1:30 &6:45 7:45 [facility] (WOMAN & CHILDREN) [address] [facility], Jzsmk Day - 7:30 8:15,11:30 12:15 & 5:30 6:15 [facility] KITCHEN [address], M F - 10:30 12:30 [facility] [address] Saxena [facility], Every Thursday at Noon [facility], F - 12:00 2:00 [facility] [address] , Kup. 6:30 8:45 & T 9:00 11:00 OPEN FPC [address], M F - 10:30 2:00 [facility] COMM. KITCHEN [address] [place] [address] , M F - 8:30am - 9:30am & 11:30-12:30 [facility] [address] [facility], M F - 1:30 3:30 [facility] [address], H Sat - 8:00 10:00T, W, Th, Sat - 12:00 2:00F Pizza - 5:00 6:00 [facility] [address], Jmd. - Fri. - 11:00 - 12:30 [facility] [address] Thursday - 1:30 [facility] [address], S, T, - 11:00 1:00 FEED MY SHEEP MINISTRIES [address] [phone] 6:30pm FEED MY SHEEP AT Optizen labsST. JOSEPH HOSPITALOrthos LIGHT CLUB [address] , Eaesjrdr at 6:30pm [facility] [address] - 6:00pm - 7:00pmSunday - 9:30am - 10:15am [facility] 100 [facility] Hospitalvd11:00-2pm Saturdays [phone] [facility] [address][phone]- 5:30pm, Sun 10:00am ANGELIKA 25:35 MINISTRIES bible study & dinner Fri: 7pm-8:30pm [address]. ? CLOTHING & HOUSEHOLD [facility] [address] Naqaida - 9 11:15 Thursday 6:30-8:30 [facility] Med ePad STORE [address] N, Th, Sat - 10:00 12:30Weds - 1:00 - 3:30 Fri - 3:00 5:30Fresh Produce: T - 2:00 - 3:00Weds - 10:00 - 11:00 [facility] [address] N - 10:00 12:00(doors open at 9:30)Th - 3:00 5:00(doors open at 2:30) Sat - 11:30-1:30 produce across streetNovant Health/Nhrmc served every Sat. 11:00-12:00 [facility] UGO [address] [facility], Yud, Tu, Th10:00 am - Noon FREE MEALS AISHWARYA PRESBYTERIAN [address], Sat 11:30 1:30 [facility] 38 [facility], Mon, Tue, Thur, Fri - 7:00 Wed. lunch 12:00-2:00 [facility], M, T, Th - 5:30, W 6:00 COMMUNITY KITCHEN [address]. [facility], M Sat - 8:30 9:30 M - Sat - 11:30 1:00 [facility] (MEN) [address] [facility], M F - 6:30 - 7:15 Sat & Sun - 8:30 9:30 Every Day - 12:30 1:30 & 6:45 7:45 FLQAUITA M[facility]ION (WOMAN & CHILDREN) [address] [facility], Every Day - 7:30 8:15, 11:30 12:15 & 5:30 6:15 [facility] [address], M F - 10:30 12:30 [facility] [address] Saxena [facility], Every Thursday at Noon [facility], F - 12:00 2:00 Fanzo [facility] COMMUNITY OUTREACH [address] , Sun. 6:30 8:45 T 9:00 11:00 OPEN FPC 61 [address], M F - 10:30 2:00 [facility] KITCHEN [address] [place] [address] , M F - 8:30am - 9:30am & 11:30 12:30 [facility] [address] [facility], M F - 1:30 3:30 [facility] [address], T Sat - 8:00 10:00 T, W, , Sat - 12:00 2:00 F Pizza - 5:00 6:00 [facility] [address], Mon. - Fri. - 11:00 - 12:30 [facility] [address] [facility] Thursday - 1:30 [facility] [address], M, T, - 11:00 1:00 FEED MY SHEEP MINISTRIES [address] [facility]. [phone] Tuesdays 6:30pm FEED MY SHEEP AT Optizen labsMARY [facility]MO[facility] LIGHT CL[facility] [address] [facility], Tuesdays at 6:30pm [facility]. - 6:00pm - 7:00pm Thursday - 9:30am - 10:15am [facility] [address]. [facility] parking lot 11:00-1:30pm Saturdays [phone] [facility] [address][phone] - 5:30pm, Sun 10:00am ? CLOTHING & HOUSEHOLD [facility] [address] [facility] [address] Thursday - 9 11:15 Thursday 6:30-8:30 [facility] Med ePad STORE [address] T, , Sat - 10:00 12:30 Weds - 1:00 - 3:30 Fri - 3:00 5:30 Fresh Produce: T - 2:00 - 3:00 Weds - 10:00 - 11:00 [facility] [address] M - 10:00 12:00(doors open at 9:30) - 3:00 5:00(doors open at 2:30) Sat - 11:30-1:30 Lunch served every Sat. 11:00-12:00 [facility], Thu, , 10:00 am - Noon [employer]DITION[employer]OURCES [employer] Utilities and rent 760 [facility]. [phone] Mon & Weds 10:00am - 3:00pm DEPARTMENT OF JOBS AND FAMILY SERVICES SNAP, Medicaid, unemployment, child support Call for locations, [facility] REENTRY TASK FORCE Ask for Reentry Task Force Help people coming out of shelter/penitentiary find resources 837-800-2790 [facility] SUICIDE HOTLINE [phone] J.O.I.N. Assistance with utilities, glasses, prescriptions 578 [facility], M F 10:00 11:30 & 1:00 2:00 [place] [employer] Food, health care, childcare, energy assistance,veterans, etc. Call for locations: SOCIAL SECURITY ADMINISTRATION M,T,W,F-9am-4pm W 9am-12pm [address] [phone] [facility] 1060 [facility] Jadon [facility] Shower and Laundry Services [address], 9:30am - 1:00pm [facility]ISTANCE [facility] MEDIATION [facility] Help for tenants facing eviction by work- ing w/landlord to maintain their housing [phone] ext. 13 [employer] documented in this encounter Assessments Diagnosis Chronic obstructive pulmonar y disease, unspecified COPD type (HCC) - Primary Chest pain, unspecified type Paresthesia of right arm Disturbance of skin sensation Thoracic aortic aneurysm wit hout rupture (HCC) Diagnosis Chronic obstructive pulmonar y disease, unspecified COPD type (HCC) - Primary Essential hypertension Unspecified essential hypertension Bilateral hip pain Pain in joint, pelvic region and thigh H/O peptic ulcer Tobacco use Chest pain, unspecified type Paresthesia and pain of both upper extremities Thoracic aortic aneurysm, wi thout rupture (HCC) Diagnosis Shortness of breath - Primar y Diagnosis Transient cerebral ischemia, unspecified type - Primary Diagnosis SOB (shortness of breath) on exertion Shortness of breath Diagnosis Acute exacerbation of chronic obstructive pulmonary disease (COPD) ([facility]) Obstructive chronic bronchitis with exacerbation Diagnosis Testicle swelling Edema of male genital organs Diagnosis Chronic right hip pain Diagnosis Retention of urine, unspecified Diagnosis Chest pain, unspecified type Syncope and collapse Syncope Syncope and collapse Diagnosis Primary osteoarthritis of right hip Diagnosis SOB (shortness of breath) Shortness of breath COPD exacerbation (HCC) Obstructive chronic bronchitis with exacerbation Smoker Tobacco use disorder Diagnosis Bilateral inguinal hernia without obstruction or gangrene, recurrence not specified Diagnosis COPD with acute exacerbation ([facility]) Diagnosis Epididymal cyst- Primary Other specified disorder of male genital organs COPD exacerbation ([facility])- Primary Obstructive chronic bronchitis with exacerbation Cough SOB (shortness of breath) Shortness of breath Bilateral hip pain Pain in joint, pelvic region and thigh Epididymal cyst Other specified disorder of male genital organs Diagnosis Epididymal cyst- Primary Other specified disorder of male genital organs Multifocal pneumonia- Primary Non-intractable vomiting with nausea, unspecified vomiting type Chest pain, unspecified type Hypoxia Hypoxemia Hypokalemia Hypopotassemia Pneumonia due to infectious organism, unspecified laterality, unspecified part of lung Sepsis, due to unspecified organism, unspecified whether acute organ dysfunction present ([facility]) Acute respiratory failure with hypoxia ([facility]) COPD exacerbation ([facility]) Obstructive chronic bronchitis with exacerbation Chest pain, atypical Nausea and vomiting, intractability of vomiting not specified, unspecified vomiting type Cigarette nicotine dependence without complication Cocaine use disorder ([facility]) Adjustment disorder with depressed mood Substance use disorder Bilateral hip pain Pain in joint, pelvic region and thigh Epididymal cyst Other specified disorder of male genital organs Diagnosis Hydrocele, unspecified hydrocele type- Primary Diagnosis Acute exacerbation of chronic obstructive pulmonary disease (COPD) ([facility])- Primary Obstructive chronic bronchitis with exacerbation Tachycardia Unspecified tachycardia Diagnosis Hydrocele- Primary Hydrocele, unspecified hydrocele type- Primary Epididymal cyst Other specified disorder of male genital organs Hydrocele, unspecified hydrocele type Diagnosis Chronic obstructive pulmonary disease, unspecified COPD type ([facility])- Primary Multifocal pneumonia Tobacco use History of drug use Hydrocele- Primary Hydrocele, unspecified hydrocele type Diagnosis Hydrocele- Primary Preop examination- Primary Unspecified pre-operative examination Hydrocele, unspecified hydrocele type Preop cardiovascular exam Pre-operative cardiovascular examination Chronic obstructive pulmonary disease, unspecified COPD type (HCC) Multifocal pneumonia History of acute respiratory failure COVID-19 virus infection History of sepsis Personal history of other infectious and parasitic disease Essential hypertension Unspecified essential hypertension Allergic state, subsequent encounter Gastroesophageal reflux disease without esophagitis Esophageal reflux Primary osteoarthritis of right hip Thoracic aortic aneurysm, without rupture (HCC) TIA (transient ischemic attack) Unspecified transient cerebral ischemia History of thoracoabdominal aortic aneurysm (TAAA) Tobacco Abuse Tobacco use disorder Opioid use disorder (HCC) Crack Cocaine Use Nondependent cocaine abuse, unspecified Diagnosis Hydrocele- Primary COPD exacerbation (HCC)- Primary Obstructive chronic bronchitis with exacerbation Hydrocele, unspecified hydrocele type Diagnosis Fall, initial encounter- Primary Chronic hip pain, unspecified laterality Osteoarthritis, unspecified osteoarthritis type, unspecified site Diagnosis COPD exacerbation (HCC) Obstructive chronic bronchitis with exacerbation Dyspnea, unspecified type Tobacco Abuse Tobacco use disorder Leukocytosis, unspecified type Chronic obstructive pulmonary disease, unspecified COPD type (HCC) Chronic obstructive pulmonary disease with acute exacerbation (HCC) Globus sensation Gastrointestinal malfunction arising from mental factors Diagnosis Primary osteoarthritis of right hip- Primary Diagnosis Primary osteoarthritis of right hip Diagnosis COPD exacerbation (HCC)- Primary Obstructive chronic bronchitis with exacerbation Shortness of breath Acute exacerbation of chronic obstructive pulmonary disease (COPD) ([facility]) Obstructive chronic bronchitis with exacerbation Bilateral edema of lower extremity Diagnosis Syncope, unspecified syncope type- Primary Diagnosis Pneumonia of left lung due to infectious organism, unspecified part of lung Sepsis, due to unspecified organism, unspecified whether acute organ dysfunction present ([facility]) Acute respiratory failure, unspecified whether with hypoxia or hypercapnia (HCC) COPD (chronic obstructive pulmonary disease) ([facility]) Chronic airway obstruction, not elsewhere classified Essential hypertension Unspecified essential hypertension Tobacco use Pneumonia Pneumonia, organism unspecified Opioid dependence (HCC) Opioid type dependence, unspecified abuse Diagnosis Hydrocele- Primary Preop examination- Primary Unspecified pre-operative examination Hydrocele, unspecified hydrocele type Preop cardiovascular exam Pre-operative cardiovascular examination Chronic obstructive pulmonary disease, unspecified COPD type (HCC) Multifocal pneumonia History of acute respiratory failure COVID-19 virus infection History of sepsis Personal history of other infectious and parasitic disease Essential hypertension Unspecified essential hypertension Allergic state, subsequent encounter Gastroesophageal reflux disease without esophagitis Esophageal reflux Primary osteoarthritis of right hip Thoracic aortic aneurysm, without rupture (HCC) TIA (transient ischemic attack) Unspecified transient cerebral ischemia History of thoracoabdominal aortic aneurysm (TAAA) Tobacco Abuse Tobacco use disorder Opioid use disorder (HCC) Crack Cocaine Use Nondependent cocaine abuse, unspecified Diagnosis Trouble breathing Other dyspnea and respiratory abnormality Chest pain, unspecified type Diagnosis Epididymal cyst Other specified disorder of male genital organs Bilateral inguinal hernia without obstruction or gangrene, recurrence not specified Instructions * Patient Instructions - Violetta Dugan, RAY - 12/21/2017 11:01 AM EDT [facility] 48 hour Follow up Phone Call Introduction: jovi Bull I speak with PT NAME. My name is YOUR NAME from [facility]. I know you were just in the hospital and I wanted to see how you were doing. Do you mind if I ask you afew questions to see if there is anything I can help you with? *Confirm right patient and that it is a good time to speak* 12/21/17 Talked with pt @ length Condition since discharge/dischagre instructions: 1. Do you know why you were admitted to the hospital? How have you been feeling since you left the hospital? 2. Do you have a copy of your discharge instructions? Can we go over the information? *Inquire about important treatment, therapies, referrals, diets, exercise, plans, prescribed meds, etc* 3. What questions do you have about those instructions? 12/21/17 Pt aware of dx. Pt states feeling a little better. Occ chest pain (Level 8 - pounding), occSOB -using inhalers, continues to smoke -states down to 5-6 /day.Eating well. Restless sleeping-strange bed - staying with daughter. Pt's main c/o is constipation since discharge from hosp - states has not had a good BM in 4 days. Reports took a small enema yesterday with little results. Advised ptnot to strain trying to have BM as could cause chest pain. Encouraged to drink prune or apple juice, try otc stool softener, increase water & fruits & veggies. Staying with daughter who is doing most of cooking. Discharge instructions reviewed with pt. Pt continues to smoke - states down to 5-6 per day. Medications: 1. May we review the medications you've been taking since you got home? I want to make sure they are the same as the ones that we have on our list. Would you mind grabbing your pill bottles or a listof your medications if the bottles are not easily accessible so we can review them over the phone? Were you able to get all of your new prescriptions filled? *If not, what happened? Do they need a Prior Authorization? Do they have insurance? Do they have financial barriers? 2. Can you tell me how you are taking each medication and what you are taking it for? *Review med names/dose/purpose etc with patients. Reinforce particularly high risk meds (anticoagulants, insulin, antibiotics, new anti-hypertensives) and see if any meds are causing them any problems/side effects. Meds reviewed with pt. States got new rx's filled & is taking as directed. States had insurance - both does not have any anymore. Follow Up Care: 1. I'd like to talk about your follow up appointments. Do you know when your appointment is with usat the [facility]? * Remind patient of date/time/address of SHANTANU appointment and where to park; let them know to bring their parking ticket in for validation; Ask of any issues with transportation and if they need to reschedule their appointment 2. When are you going to see your other doctors and how are you going to get there? 3. Who else is helping you out at home? Family, friends, home health, etc. 4. Do you feel like you are able to care for your medical problems in your home? 12/21/17 TCC appoint 12/29/17 @ 3:30pm - pt reminded about appoint & details. Mostly self care. Living with daughter til recovers. Needs PCP PD in this encounter* Patient Instructions - SeeWashington CMA - 12/29/2017 3:22 PM EDT Do a breathing treatment with he duoneb (albuterol and atrovent mixed into one tube) every 4-6 hours while you are awake for the next two weeks, then only use as needed for chest tightness/wheezing. Use the spiriva every day [facility] [place] [address] across from the Emergency department) to have the xray of your hips and pelvis done. in this encounter* Patient Instructions* Adelina Multani MA - 01/17/2020 8:58 AM EDT Please call Surgery Clinic NurseMariama [phone] Option 7 for any questions related to your Surgery. You may also leave a message for your doctor through your [employer] account. For urgent needs, call [phone] Option # 4 to speak with the Patient Wire Products Inspector. For urgent calls when the office is closed, call the office at [phone]. You will be connected with [employer] Service personnel who will route your comments to the non destructive evaluation manager General Surgery Resident. documented in this encounter* Patient Instructions* Wally Oswald MD - 06/19/2020 11:15 AM EST Preoperative Medication Instructions In preparation for surgery please continue all of your current medications with the following changes: Wolf Turcios Home Medication Instructions Prior to Surgery NUNO:[id number] Printed on:06/19/20 1864 Medication Information Take last dose on Take the morning of surgery Comment(s) albuterol (PROVENTIL) 2.5 mg /3 mL (0.083 %) nebulizer solution Take 3 mL (2.5 mg total) by nebulization every 4 (four) hours as needed for wheezing Dx: J44.0 . Yes, if needed albuterol 90 mcg/actuation inhaler Inhale 2 (two) puffs every 4 (four) hours as needed for wheezing Reasons: chronic obstructive pulmonary disease. Yes, if needed azithromycin (ZITHROMAX) 250 MG tablet Take 2 tabs today then 1 tablet daily until gone. . You stated you were given this by your primary care physician or Dr. Mark last week to use as a backup just in case. You have taken 1 dose and were planning on completing it. Please notify your electrical tester of this. Banophen 25 mg capsule Take 25 mg by mouth daily as needed for allergies . Please take as usual prior to your procedure budesonide-formoteroL (SYMBICORT) 160-4.5 mcg/actuation inhaler Inhale 2 (two) puffs 2 (two) times a day . Please take as usual prior to your procedure buprenorphine-nalOXone (SUBOXONE) 8-[address] 1 tablet under the tongue every morning . Hold 72 hours prior to planned procedure cyclobenzaprine (FLEXERIL) 5 MG tablet Take 10 mg by mouth 2 (two) times a day as needed for muscle spasms . no guaiFENesin (Mucinex) 1,200 mg Ta12 Take 1,200 mg by mouth every morning . no hydroCHLOROthiazide (HYDRODIURIL) 12.5 MG tablet Take 12.5 mg by mouth every morning . no loratadine (CLARITIN) 10 mg tablet Take 10 mg by mouth every morning . Please take as usual prior to your procedure montelukast (SINGULAIR) 10 mg tablet Take 1 (one) tablet (10 mg total) by mouth nightly . Please take as usual prior to your procedure nicotine (NICODERM CQ) 21 mg/[address] 1 patch on the skin daily as needed . Please discuss this medication with your surgeon nicotine polacrilex (NICORETTE) 4 MG gum Apply 4 mg to the mouth or throat as needed for smoking cessation . Please discuss this medication with your surgeon tiotropium bromide (Spiriva Respimat) 2.5 mcg/actuation Mist Inhale 2 (two) puffs daily . Please take as usual prior to your procedure Please take your evening medications as usual on the evening prior to surgery. STOP Aspirin (and medications that contain aspirin, such as [place], Pepto- Bismol, Anacin), antiinflammatory medications such as Advil, Motrin, Ibuprofen, Naproxen, Aleve, [place], Pepto-Bismol, Anacin, Diclofenac, Voltaren, Daypro, Etodolac, Ketoprofen, Meloxicam, Piroxicam, Relafen, Nabumetone, etc. Also discontinue Vitamin C, Vitamin E, Murphy-3 Fatty Acid, Fish Oil or Lovaza, as wellas all herbal medications and supplements. Tylenol (acetaminophen) is acceptable, but be careful to follow the label directions. On the morning of surgery, with a small amount of water, take ONLY the medications listed above in the column Take the morning of surgery. If you are using Eye Drops or Inhalers, please bring them to the hospital. If you have sleep apnea and have a CPAP/BIPAP device, please bring it with you on the day of surgery. documented in this encounter* Patient Instructions* Wally Oswald MD - 06/19/2020 11:15 AM EST Preoperative Medication Instructions In preparation for surgery please continue all of your current medications with the following changes: Wolf Turcios Home Medication Instructions Prior to Surgery NUNO:[id number] Printed on:06/19/20 6348 Medication Information Take last dose on Take the morning of surgery Comment(s) albuterol (PROVENTIL) 2.5 mg /3 mL (0.083 %) nebulizer solution Take 3 mL (2.5 mg total) by nebulization every 4 (four) hours as needed for wheezing Dx: J44.0 . Yes, if needed albuterol 90 mcg/actuation inhaler Inhale 2 (two) puffs every 4 (four) hours as needed for wheezing Reasons: chronic obstructive pulmonary disease. Yes, if needed azithromycin (ZITHROMAX) 250 MG tablet Take 2 tabs today then 1 tablet daily until gone. . You stated you were given this by your primary care physician or Dr. Mark last week to use as a backup just in case. You have taken 1 dose and were planning on completing it. Please notify your electrical tester of this. Banophen 25 mg capsule Take 25 mg by mouth daily as needed for allergies . Please take as usual prior to your procedure budesonide-formoteroL (SYMBICORT) 160-4.5 mcg/actuation inhaler Inhale 2 (two) puffs 2 (two) times a day . Please take as usual prior to your procedure buprenorphine-nalOXone (SUBOXONE) 8-[address] 1 tablet under the tongue every morning . Hold 72 hours prior to planned procedure cyclobenzaprine (FLEXERIL) 5 MG tablet Take 10 mg by mouth 2 (two) times a day as needed for muscle spasms . no guaiFENesin (Mucinex) 1,200 mg Ta12 Take 1,200 mg by mouth every morning . no hydroCHLOROthiazide (HYDRODIURIL) 12.5 MG tablet Take 12.5 mg by mouth every morning . no loratadine (CLARITIN) 10 mg tablet Take 10 mg by mouth every morning . Please take as usual prior to your procedure montelukast (SINGULAIR) 10 mg tablet Take 1 (one) tablet (10 mg total) by mouth nightly . Please take as usual prior to your procedure nicotine (NICODERM CQ) 21 mg/[address] 1 patch on the skin daily as needed . Please discuss this medication with your surgeon nicotine polacrilex (NICORETTE) 4 MG gum Apply 4 mg to the mouth or throat as needed for smoking cessation . Please discuss this medication with your surgeon tiotropium bromide (Spiriva Respimat) 2.5 mcg/actuation Mist Inhale 2 (two) puffs daily . Please take as usual prior to your procedure Please take your evening medications as usual on the evening prior to surgery. STOP Aspirin (and medications that contain aspirin, such as [place], Pepto- Bismol, Anacin), antiinflammatory medications such as Advil, Motrin, Ibuprofen, Naproxen, Aleve, [place], Pepto-Bismol, Anacin, Diclofenac, Voltaren, Daypro, Etodolac, Ketoprofen, Meloxicam, Piroxicam, Relafen, Nabumetone, etc. Also discontinue Vitamin C, Vitamin E, Murphy-3 Fatty Acid, Fish Oil or Lovaza, as wellas all herbal medications and supplements. Tylenol (acetaminophen) is acceptable, but be careful to follow the label directions. On the morning of surgery, with a small amount of water, take ONLY the medications listed above in the column Take the morning of surgery. If you are using Eye Drops or Inhalers, please bring them to the hospital. If you have sleep apnea and have a CPAP/BIPAP device, please bring it with you on the day of surgery. documented in this encounter* Patient Instructions* Wally Oswald MD - 06/19/2020 11:15 AM EST Preoperative Medication Instructions In preparation for surgery please continue all of your current medications with the following changes: Wolf Turcios Home Medication Instructions Prior to Surgery NUNO:[id number] Printed on:06/19/20 1115 Medication Information Take last dose on Take the morning of surgery Comment(s) albuterol (PROVENTIL) 2.5 mg /3 mL (0.083 %) nebulizer solution Take 3 mL (2.5 mg total) by nebulization every 4 (four) hours as needed for wheezing Dx: J44.0 . Yes, if needed albuterol 90 mcg/actuation inhaler Inhale 2 (two) puffs every 4 (four) hours as needed for wheezing Reasons: chronic obstructive pulmonary disease. Yes, if needed azithromycin (ZITHROMAX) 250 MG tablet Take 2 tabs today then 1 tablet daily until gone. . You stated you were given this by your primary care physician or Dr. Mark last week to use as a backup just in case. You have taken 1 dose and were planning on completing it. Please notify your electrical tester of this. Banophen 25 mg capsule Take 25 mg by mouth daily as needed for allergies . Please take as usual prior to your procedure budesonide-formoteroL (SYMBICORT) 160-4.5 mcg/actuation inhaler Inhale 2 (two) puffs 2 (two) times a day . Please take as usual prior to your procedure buprenorphine-nalOXone (SUBOXONE) 8-[address] 1 tablet under the tongue every morning . Hold 72 hours prior to planned procedure cyclobenzaprine (FLEXERIL) 5 MG tablet Take 10 mg by mouth 2 (two) times a day as needed for muscle spasms . no guaiFENesin (Mucinex) 1,200 mg Ta12 Take 1,200 mg by mouth every morning . no hydroCHLOROthiazide (HYDRODIURIL) 12.5 MG tablet Take 12.5 mg by mouth every morning . no loratadine (CLARITIN) 10 mg tablet Take 10 mg by mouth every morning . Please take as usual prior to your procedure montelukast (SINGULAIR) 10 mg tablet Take 1 (one) tablet (10 mg total) by mouth nightly . Please take as usual prior to your procedure nicotine (NICODERM CQ) 21 mg/[address] 1 patch on the skin daily as needed . Please discuss this medication with your surgeon nicotine polacrilex (NICORETTE) 4 MG gum Apply 4 mg to the mouth or throat as needed for smoking cessation . Please discuss this medication with your surgeon tiotropium bromide (Spiriva Respimat) 2.5 mcg/actuation Mist Inhale 2 (two) puffs daily . Please take as usual prior to your procedure Please take your evening medications as usual on the evening prior to surgery. STOP Aspirin (and medications that contain aspirin, such as [place], Pepto- Bismol, Anacin), antiinflammatory medications such as Advil, Motrin, Ibuprofen, Naproxen, Aleve, [place], Pepto-Bismol, Anacin, Diclofenac, Voltaren, Daypro, Etodolac, Ketoprofen, Meloxicam, Piroxicam, Relafen, Nabumetone, etc. Also discontinue Vitamin C, Vitamin E, Murphy-3 Fatty Acid, Fish Oil or Lovaza, as wellas all herbal medications and supplements. Tylenol (acetaminophen) is acceptable, but be careful to follow the label directions. On the morning of surgery, with a small amount of water, take ONLY the medications listed above in the column Take the morning of surgery. If you are using Eye Drops or Inhalers, please bring them to the hospital. If you have sleep apnea and have a CPAP/BIPAP device, please bring it with you on the day of surgery. documented in this encounter* Patient Instructions* Wally Osawld MD - 06/19/2020 11:15 AM EST Preoperative Medication Instructions In preparation for surgery please continue all of your current medications with the following changes: Wolf Turcios Home Medication Instructions Prior to Surgery NUNO:[id number] Printed on:06/19/20 1115 Medication Information Take last dose on Take the morning of surgery Comment(s) albuterol (PROVENTIL) 2.5 mg /3 mL (0.083 %) nebulizer solution Take 3 mL (2.5 mg total) by nebulization every 4 (four) hours as needed for wheezing Dx: J44.0 . Yes, if needed albuterol 90 mcg/actuation inhaler Inhale 2 (two) puffs every 4 (four) hours as needed for wheezing Reasons: chronic obstructive pulmonary disease. Yes, if needed azithromycin (ZITHROMAX) 250 MG tablet Take 2 tabs today then 1 tablet daily until gone. . You stated you were given this by your primary care physician or Dr. Mark last week to use as a backup just in case. You have taken 1 dose and were planning on completing it. Please notify your electrical tester of this. Banophen 25 mg capsule Take 25 mg by mouth daily as needed for allergies . Please take as usual prior to your procedure budesonide-formoteroL (SYMBICORT) 160-4.5 mcg/actuation inhaler Inhale 2 (two) puffs 2 (two) times a day . Please take as usual prior to your procedure buprenorphine-nalOXone (SUBOXONE) 8-[address] 1 tablet under the tongue every morning . Hold 72 hours prior to planned procedure cyclobenzaprine (FLEXERIL) 5 MG tablet Take 10 mg by mouth 2 (two) times a day as needed for muscle spasms . no guaiFENesin (Mucinex) 1,200 mg Ta12 Take 1,200 mg by mouth every morning . no hydroCHLOROthiazide (HYDRODIURIL) 12.5 MG tablet Take 12.5 mg by mouth every morning . no loratadine (CLARITIN) 10 mg tablet Take 10 mg by mouth every morning . Please take as usual prior to your procedure montelukast (SINGULAIR) 10 mg tablet Take 1 (one) tablet (10 mg total) by mouth nightly . Please take as usual prior to your procedure nicotine (NICODERM CQ) 21 mg/[address] 1 patch on the skin daily as needed . Please discuss this medication with your surgeon nicotine polacrilex (NICORETTE) 4 MG gum Apply 4 mg to the mouth or throat as needed for smoking cessation . Please discuss this medication with your surgeon tiotropium bromide (Spiriva Respimat) 2.5 mcg/actuation Mist Inhale 2 (two) puffs daily . Please take as usual prior to your procedure Please take your evening medications as usual on the evening prior to surgery. STOP Aspirin (and medications that contain aspirin, such as [place], Pepto- Bismol, Anacin), antiinflammatory medications such as Advil, Motrin, Ibuprofen, Naproxen, Aleve, [place], Pepto-Bismol, Anacin, Diclofenac, Voltaren, Daypro, Etodolac, Ketoprofen, Meloxicam, Piroxicam, Relafen, Nabumetone, etc. Also discontinue Vitamin C, Vitamin E, Murphy-3 Fatty Acid, Fish Oil or Lovaza, as wellas all herbal medications and supplements. Tylenol (acetaminophen) is acceptable, but be careful to follow the label directions. On the morning of surgery, with a small amount of water, take ONLY the medications listed above in the column Take the morning of surgery. If you are using Eye Drops or Inhalers, please bring them to the hospital. If you have sleep apnea and have a CPAP/BIPAP device, please bring it with you on the day of surgery. documented in this encounter* Patient Instructions* Wally Oswald MD - 06/19/2020 11:15 AM EST Preoperative Medication Instructions In preparation for surgery please continue all of your current medications with the following changes: Wolf Turcios Home Medication Instructions Prior to Surgery NUNO:[id number] Printed on:06/19/20 111 Medication Information Take last dose on Take the morning of surgery Comment(s) albuterol (PROVENTIL) 2.5 mg /3 mL (0.083 %) nebulizer solution Take 3 mL (2.5 mg total) by nebulization every 4 (four) hours as needed for wheezing Dx: J44.0 . Yes, if needed albuterol 90 mcg/actuation inhaler Inhale 2 (two) puffs every 4 (four) hours as needed for wheezing Reasons: chronic obstructive pulmonary disease. Yes, if needed azithromycin (ZITHROMAX) 250 MG tablet Take 2 tabs today then 1 tablet daily until gone. . You stated you were given this by your primary care physician or Dr. Mark last week to use as a backup just in case. You have taken 1 dose and were planning on completing it. Please notify your electrical tester of this. Banophen 25 mg capsule Take 25 mg by mouth daily as needed for allergies . Please take as usual prior to your procedure budesonide-formoteroL (SYMBICORT) 160-4.5 mcg/actuation inhaler Inhale 2 (two) puffs 2 (two) times a day . Please take as usual prior to your procedure buprenorphine-nalOXone (SUBOXONE) 8-[address] 1 tablet under the tongue every morning . Hold 72 hours prior to planned procedure cyclobenzaprine (FLEXERIL) 5 MG tablet Take 10 mg by mouth 2 (two) times a day as needed for muscle spasms . no guaiFENesin (Mucinex) 1,200 mg Ta12 Take 1,200 mg by mouth every morning . no hydroCHLOROthiazide (HYDRODIURIL) 12.5 MG tablet Take 12.5 mg by mouth every morning . no loratadine (CLARITIN) 10 mg tablet Take 10 mg by mouth every morning . Please take as usual prior to your procedure montelukast (SINGULAIR) 10 mg tablet Take 1 (one) tablet (10 mg total) by mouth nightly . Please take as usual prior to your procedure nicotine (NICODERM CQ) 21 mg/[address] 1 patch on the skin daily as needed . Please discuss this medication with your surgeon nicotine polacrilex (NICORETTE) 4 MG gum Apply 4 mg to the mouth or throat as needed for smoking cessation . Please discuss this medication with your surgeon tiotropium bromide (Spiriva Respimat) 2.5 mcg/actuation Mist Inhale 2 (two) puffs daily . Please take as usual prior to your procedure Please take your evening medications as usual on the evening prior to surgery. STOP Aspirin (and medications that contain aspirin, such as [place], Pepto- Bismol, Anacin), antiinflammatory medications such as Advil, Motrin, Ibuprofen, Naproxen, Aleve, [place], Pepto-Bismol, Anacin, Diclofenac, Voltaren, Daypro, Etodolac, Ketoprofen, Meloxicam, Piroxicam, Relafen, Nabumetone, etc. Also discontinue Vitamin C, Vitamin E, Murphy-3 Fatty Acid, Fish Oil or Lovaza, as wellas all herbal medications and supplements. Tylenol (acetaminophen) is acceptable, but be careful to follow the label directions. On the morning of surgery, with a small amount of water, take ONLY the medications listed above in the column Take the morning of surgery. If you are using Eye Drops or Inhalers, please bring them to the hospital. If you have sleep apnea and have a CPAP/BIPAP device, please bring it with you on the day of surgery. documented in this encounter* Patient Instructions* Wally Oswald MD - 06/19/2020 11:15 AM EST Preoperative Medication Instructions In preparation for surgery please continue all of your current medications with the following changes: Wolf Turcios Home Medication Instructions Prior to Surgery NUNO:[id number] Printed on:06/19/20 1115 Medication Information Take last dose on Take the morning of surgery Comment(s) albuterol (PROVENTIL) 2.5 mg /3 mL (0.083 %) nebulizer solution Take 3 mL (2.5 mg total) by nebulization every 4 (four) hours as needed for wheezing Dx: J44.0 . Yes, if needed albuterol 90 mcg/actuation inhaler Inhale 2 (two) puffs every 4 (four) hours as needed for wheezing Reasons: chronic obstructive pulmonary disease. Yes, if needed azithromycin (ZITHROMAX) 250 MG tablet Take 2 tabs today then 1 tablet daily until gone. . You stated you were given this by your primary care physician or Dr. Mark last week to use as a backup just in case. You have taken 1 dose and were planning on completing it. Please notify your electrical tester of this. Banophen 25 mg capsule Take 25 mg by mouth daily as needed for allergies . Please take as usual prior to your procedure budesonide-formoteroL (SYMBICORT) 160-4.5 mcg/actuation inhaler Inhale 2 (two) puffs 2 (two) times a day . Please take as usual prior to your procedure buprenorphine-nalOXone (SUBOXONE) 8-[address] 1 tablet under the tongue every morning . Hold 72 hours prior to planned procedure cyclobenzaprine (FLEXERIL) 5 MG tablet Take 10 mg by mouth 2 (two) times a day as needed for muscle spasms . no guaiFENesin (Mucinex) 1,200 mg Ta12 Take 1,200 mg by mouth every morning . no hydroCHLOROthiazide (HYDRODIURIL) 12.5 MG tablet Take 12.5 mg by mouth every morning . no loratadine (CLARITIN) 10 mg tablet Take 10 mg by mouth every morning . Please take as usual prior to your procedure montelukast (SINGULAIR) 10 mg tablet Take 1 (one) tablet (10 mg total) by mouth nightly . Please take as usual prior to your procedure nicotine (NICODERM CQ) 21 mg/[address] 1 patch on the skin daily as needed . Please discuss this medication with your surgeon nicotine polacrilex (NICORETTE) 4 MG gum Apply 4 mg to the mouth or throat as needed for smoking cessation . Please discuss this medication with your surgeon tiotropium bromide (Spiriva Respimat) 2.5 mcg/actuation Mist Inhale 2 (two) puffs daily . Please take as usual prior to your procedure Please take your evening medications as usual on the evening prior to surgery. STOP Aspirin (and medications that contain aspirin, such as [place], Pepto- Bismol, Anacin), antiinflammatory medications such as Advil, Motrin, Ibuprofen, Naproxen, Aleve, [place], Pepto-Bismol, Anacin, Diclofenac, Voltaren, Daypro, Etodolac, Ketoprofen, Meloxicam, Piroxicam, Relafen, Nabumetone, etc. Also discontinue Vitamin C, Vitamin E, Murphy-3 Fatty Acid, Fish Oil or Lovaza, as wellas all herbal medications and supplements. Tylenol (acetaminophen) is acceptable, but be careful to follow the label directions. On the morning of surgery, with a small amount of water, take ONLY the medications listed above in the column Take the morning of surgery. If you are using Eye Drops or Inhalers, please bring them to the hospital. If you have sleep apnea and have a CPAP/BIPAP device, please bring it with you on the day of surgery. documented in this encounter History of Present Illness * Tiffanie Deal RN - 01/10/2017 6:30 PM EDT Patient is alert and oriented x 4. Discharge instructions giving, patient verbalized understanding.Patient refused wheelchair escort. Discharge home, accompanied by patient's friend(Santos). * Valencia Anna MSW LSW - 01/10/2017 4:48 PM EDT CLAUDIO consulted to provide Pt with a list of primary care physicians. Pt doesn't have insurance. CLAUDIO printed out information on [facility] and gave to Pt. CLAUDIO also provided Pt with the physician referral telephone number for [facility]. CLAUDIO met with Pt at bedside and gave PT resources. Pt has no other questions or concerns at this time. in this encounter* Tiffanie Deal RN - 01/10/2017 6:30 PM EDT Patient is alert and oriented x 4. Discharge instructions giving, patient verbalized understanding.Patient refused wheelchair escort. Discharge home, accompanied by patient's friend(Santos). * JohngabiValencia andrade, RANGE MANAGER [employer] TECHNICIAN - 01/10/2017 4:48 PM EDT SW consulted to provide Pt with a list of primary care physicians. Pt doesn't have insurance. SW printed out information on [facility] and gave to Pt. SW also provided Pt with the physician referral telephone number for [facility]. SW met with Pt at bedside and gave PT resources. Pt has no other questions or concerns at this time. in this encounter* Lori Ryder RN - 11/03/2019 2:08 PM EDT Patient d/c'd. Transportation to be provided by [facility] (per patient). AVS printed, reviewed, and all questions answered. Per patient all belongings are present and accounted for. PIV removed without issue and bandage applied. * Kaitlynn Ambriz CNP - 11/03/2019 12:30 PM EDT [facility] [place] DAILY PROGRESS NOTE Assessment and Plan Wolf Turcios is a 59 y.o. male patient of García Gunn CNP with history of HTN, Asthma/COPD, presented with syncope and chest pain. Syncope Presented after exertion with prodromal symptoms of lightheadedness, oral numbness and tunnel vision No post-ictal confusion and no seizure like activity witnessed by daughter On admission, afebrile, BP 162/115, 97% on RA ECG with no conduction block WBC 6.8, normal BMP, negative trop, negative BNP Orthostatics neg, D dimer 0.42 Hx cocaine abuse, pt reports clean for 3 mosTTE ordered Received IVF TTE (11/01) EF 55-60%, no significant valve disease Encouraged slow position change, hydration and compression stockings Chest Pain History of HTN only Pain is right sided chest pain that was sharp and short-lived, he is unable to characterize it well; no current chest pain Last CCTA 12/2017 with CAD-RADS of 0 ECG shows TWI in III and aVF Troponin levels negative Tele monitoring ok Lipid profile and A1c controlled ASA, statin started TTE normal as above Given completely clean coronary artery on CCTA in 2018, ACS seems less likely, and will hold off onany further testing HTN BP 162/112 Patient has amlodipine and lisinopril as prescription but he did not know these and says has not taken for at least 3-4 years BP improved after amlodipine initiated COPD Not in exacerbation Reports taking his triple inhaler, resumed Chronic right hip pain Home norco 10 prn prescription confirmed with [facility] and resumed tramdol Rx Lower urinary tract symptoms Currently going through outpatient work up with urology and had normal renal and bladder ultrasound Outpatient follow up Homelessness CM consulted Admitted From: home Medication Reconciliation: Verified Code Status: Full Code Quality Measures DVT Prophylaxis: lovenox Foy Catheter: None Disposition Discharge Location: Home Estimated Discharge Date: 11/02 Outpatient Testing: None Subjective No new complaints. No chest pain. No lightheadedness. Review of Systems All systems have been reviewed and are negative except as noted in HPI or below Objective BP (!) 151/85 (BP Location: Right arm, Patient Position: Lying) Pulse 75 Temp 98.1 F (36.7 C) (Oral) Resp 16 Ht 6' 2 Wt 66.6 kg (146 lb 13.2 oz) SpO2 96% BMI 18.85 kg/m Physical Examination General Appearance: alert, well appearing, and in no acute distress HEENT: Head- normocephalic; Eyes- PERRLA, EOMI; Ears- external auditory canals clear, hearing intact; Nose- no nasal discharge; Throat- oropharynx normal Cardiovascular: regular rate and rhythm; normal S1, S2; no murmurs, rubs, clicks or gallops; no peripheral edema Respiratory: lungs clear to auscultation; without wheezes, rales or rhonchi Abdomen: soft, non-tender, non-distended; positive bowel sounds Neurological: alert, oriented x 3, normal speech; no focal findings or movement disorder noted Musculoskeletal: no significant deformity or tenderness to palpation Skin: normal coloration, texture and turgor; no lesions or eruptions Psych: normal mood and affect Results/Medications Reviewed 11/03/19 12:30 PM Laboratory, Medications and Transcriptions * Lori Ryder RN - 11/03/2019 10:02 AM EDT 11/03/19 0735 11/03/19 0739 11/03/19 0740 Vital Signs Temp 98 F (36.7 C) -- -- Temp src Oral -- -- Heart Rate 72 75 84 Heart Rate Source Monitor -- -- Resp 16 -- -- BP (!) 144/90 (!) 139/92 129/88 MAP (mmHg) 108 108 102 BP Location Right arm -- -- BP Method Automatic -- -- Patient Position Lying Sitting Standing * Sammie Traore MSW LSW - 11/03/2019 9:41 AM EDT COMPLEX DISCHARGE Date: 11/03/2019 Time: 9:41 AM Patient Name: Wolf Turcios Date of : 1960 Sex: Male Discharge Planning Living Arrangements: Homeless Support Systems: Family members Assistance Needed: none Type of Residence: Homeless Prior to Admission Home Care Services: No Reason For Consult: Homelessness resources Situation/Background: Per 11/01 H&P, Wolf Turcios is a 59 y.o. male patient of García Gunn CNP with history of HTN, Asthma/COPD, presented with syncope and chest pain. Action: CLAUDIO met with pt at bedside. Pt sts he has been homeless for years. He sts he does not livewith family/friends or in the [facility] in an effort to eliminate bad influences and remain sober. Pt sts he has been sober for approx 6 months; pt did not specify what substance/s he previously used. [place] with his significant other. He sts he has a cell phone and remains in regular contact with family. He has access to clean drinking water and air conditioning. Pt sts he as access to f/u care and will call PCP. Pt requests resources for obtaining legaldocuments ( certificate, etc). SW provided streetcard and reviewed resources with pt. Pt denies any further needs at this time. Recommendation: [facility] available for further d/c needs as indicated * Cristina Phelps RN - 11/03/2019 3:47 AM EDT 11/03/19 0336 11/03/19 0339 11/03/19 0345 Vital Signs Temp 98.6 F (37 C) -- -- Temp src Oral -- -- Heart Rate 75 82 84 Heart Rate Source Monitor Monitor Monitor Resp 14 14 16 Resp Source Visual Visual Visual BP (!) 137/90 130/89 (!) 142/96 MAP (mmHg) 106 102 112 BP Location Right arm Right arm Right arm BP Method Automatic Automatic Automatic Patient Position Lying Sitting Sitting Oxygen Therapy SpO2 94 % 95 % 96 % O2 Device None (Room air) None (Room air) None (Room air) Pulse Oximetry Type Intermittent Intermittent Intermittent denies dizziness from position change. Sitting ortho BP, patient unable to stand due to pain in rt hip. documented in this encounter* Teresa Merino III, MD - 12/12/2019 9:55 AM EDT [facility] [address] [place] [address] Patient Name: Wolf Turcios Patient Age: 59 y.o. Patient : 1960 Date: 12/12/19 Progress Note Initial Visit Chief Complaint: Chief Complaint Patient presents with Right Hip - Pain Pain R hip pain, referred by PCP, xrays in [facility], was told he is bone on bone, feels like the bone is popping, no previous treatments, currently 9 months cleaned from drugs and proud of it History of Present Illness: Wolf Turcios is a 59 y.o. male here for right Hip pain. HPI Patient is a 59-year-old man with significant right hip discomfort. Recently seen to the ER due to exertional shortness of breath. He currently does not live in a stable home environment has had someprogressive right lower extremity pain and in 1 of his evaluations x-rays were obtained that revealed significant osteoarthritis of the right hip. He is here today for evaluation management is very limited standing and walking tolerance. Histories: Past Medical History: Diagnosis Date Asthma COPD (chronic obstructive pulmonary disease) (HCC) Emphysema/COPD (HCC) Essential hypertension 01/10/2017 Past Surgical History: Procedure Laterality Date GASTRIC ULCER PERFORATION REPAIR Family History Problem Relation Age of Onset Diabetes Mother Diabetes Father Throat cancer Sister Heart attack Maternal Grandmother Social History Socioeconomic History Marital status: Single Spouse name: Not on file Number of children: Not on file Years of education: Not on file Highest education level: Not on file Occupational History Not on file Social Needs Financial resource strain: Not on file Food insecurity Worry: Not on file Inability: Not on file Transportation needs Medical: Not on file Non-medical: Not on file Tobacco Use Smoking status: Current Every Day Smoker Packs/day: 0.50 Years: 40.00 Pack years: 20.00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 tachycardia, tachypnea on admission CTPA reveals multifocal pneumonia and trace parapneumonic effusion Micro data unrevealing Rocephin/Zithromax escalated to zosyn Clinically with slow improvement of cough, dyspnea and hypoxia Effusion not large enough for paracentesis Pulmonary followed Completed course Zosyn and steroids COPD exacerbation Due to ongoing Tobacco use, polysubstance abuse and PNA Continue Symbicort, DuoNeb/PRN albuterol nebulizers Prolonged steroid taper completed Polysubstance Abuse UDS positive for cocaine, opioids, buprenorphine, and fentanyl Addiction Medicine discussed options at length Drug of choice typically cocaine, does not seem to have opioid use disorder Given outpatient resources Atypical chest pain Likely MSK etiology secondary to cough CTPA limited by respiratory motion but negative for PE to proximal segmental level EKG sinus tachycardia, no acute ST/T changes appreciated Serial troponin negative x2 Trial of Lortab elixer (04/15) Nausea and vomiting, Constipation Lipase/LFTs WNL CT abdomen/pelvis with IV contrast negative Zofran PRN Tolerating PO Bowel regimen, escalate as needed Essential hypertension HCTZ held on admission, now resumed BPs stable Tobacco abuse Nicotine patch, PRN nicotine gum Hypokalemia Resolved Severe Protein calorie Malnutrition Body mass index is 18.47 kg/m . Supplement Code Status: Full Code Quality Measures DVT Prophylaxis: Lovenox Foy Catheter: None Disposition Medically stable for discharge to SNF Outpatient Testing: CXR in 8 weeks Subjective Complaining mostly of his arthritic hip today. Respiratory status stable. Review of Systems All systems have been reviewed and are negative except as noted in HPI or below Objective BP (!) 155/92 Pulse 98 Temp 98.3 F (36.8 C) (Oral) Resp 18 Ht 6' 1 Wt 63.5 kg (140 lb) SpO2 93% BMI 18.47 kg/m Physical Examination General Appearance: alert, chronically ill, and in no acute distress HEENT: Head- normocephalic; Ears- external auditory canals clear, hearing intact; Nose- no nasal discharge; Throat- oropharynx normal Cardiovascular: regular rate and rhythm; normal S1, S2; no murmurs, rubs, clicks or gallops; no peripheral edema Respiratory: Prolonged expiration, diminished with course crackles on L, no wheezing Abdomen: soft, non-tender, non-distended; positive bowel sounds Neurological: alert, oriented x 3, normal speech; no focal findings or movement disorder noted Musculoskeletal: no deformity, minimal muscle mass Skin: normal coloration, texture and turgor; no lesions or eruptions Psych: normal mood and affect Results/Medications Reviewed 04/20/20 2:51 PM Laboratory, Cardiology, Medications and Transcriptions * Joselin Reed LISW - 04/20/2020 1:20 PM EST COMPLEX DISCHARGE Date: 04/20/2020 Time: 1:20 PM Patient Name: Wolf Turcios Date of : 1960 Sex: Male Discharge Planning Living Arrangements: Spouse/significant other Support Systems: Spouse/significant other Assistance Needed: no Type of Residence: Homeless Prior to Admission Home Care Services: No Anticipated Facility Type: residential facility Anticipated Discharge Plan Anticipated Facility Type: residential facility Situation/Background: Patient is from home. Patient presented to [facility] with multifocal pneumonia. Therapy recommendations currently support nursing home facility placement at discharge. Physical therapy: up to 5 days per week, [facility] 17; Occupational therapy: 21. Patient is in agreement with skilled facility placement. Action: SW following precert pending at [facility]. Addendum: CLAUDIO left a voicemail for Chetna at [facility] regarding precert status. Addendum: CLAUDIO received a voicemail from Chetna at [facility]. Chetna reports that this patient can be admitted today, 04/20. CLAUDIO messaged [facility] to arrange transport. Per physician, this patient is ready for discharge. Addendum: CLAUDIO arranged transport for 04/21/20 between 7pm-8pm with [facility]. CLAUDIO left a voicemail for Chetna, liaison with the [facility] to alert that this patient will be transported 04/21. [facility] to complete HENS. Addendum: Chetna confirmed receipt of message. This patient can be admitted into the [facility] on 04/21. Addendum: Per PM rounds, this SW met with patient at bedside to discuss plans to discharge to [facility]. SW provided this patient with the address. Patient requested that SW contact pastoral care for clothing. SW left a [employer] message for Senior Care Provider requesting clothing to room 802. SW explained that this patient will be going to SNF for rehab. Patient is agreeable at this time. Addendum: Per [facility], HENS has been complete. Recommendation: SW to follow for discharge planning. * Katina Hollis CNP - 04/20/2020 9:02 AM EST Pulmonary Progress Note Patient Name: Wolf Turcios Admit Date: MR #: [id number] : 1960 Wolf Turcios is a 59 y.o. male patient of Karma Mark CNP with a history of COPD, Asthma, TIA, Thoracic aortic aneurysm, Hypertension, Hyperlipidemia, PUD, Polysubstance use, Tobacco abuse, presented with multifocal pneumonia. Assessment and Plan/Recommendations: 1. Acute on chronic hypoxic respiratory failure: --Required O2 up to 4-5 L NC on admit --Difficult situation, recurrent admits with COPD, drug use, ongoing tobacco abuse, homeless status. He is high risk for readmissions as long as he uses. Per therapy notes, SNF recs. --He does not have home O2 (he has been living in a warehouse) . --Acute decompensation due to COPD exacerbation and pneumonia, tx as below --Continue aggressive pulmonary toilet --Wean oxygen as tolerated with goal O2 sats > 88% --Has been on room air to low dose O2 2L NC. May need O2 at time of dc to SNF. Check exertional O2 sats to see if he would qualify for O2 --Plan for SNF at time of dc, stable for dc per discretion of primary team . --Stable on room air 04/20 2. Multifocal pneumonia --Has multiple recent admissions and has high risk for multidrug-resistant organisms --Also has poor dentition --Had 3 days azithro and Ceftriaxone, then switched to Zosyn to cover anaerobes and Pseudomonas. Will plan for 10 days total treatment. Continue Zosyn for now, can switch to po Augmentin if ready fordc before completes the course. --Sputum cx not sent, all other cx neg, MRSA neg, antigens negative. --Aggressive pulm toilet, IS, PEP 3. Tobacco usage as well as substance abuse including cocaine --UDS positive for cocaine, opioids, buprenorphine, and fentanyl --Patient acknowledges crack cocaine use but adamantly denies opiate use --1/2 PPD smoker. Patch. Encourage cessation --Addiction and BH teams folllowing 4. Acute exacerbation of COPD --Known COPD, on home O2 1-2 L NC. Has home MN machine and Symbicort and Spiriva --Tx of acute COPDE: MN txs, Symbicort, Spiriva, Pred 40 mg, down to 20 mg 04/19 with plan for 2 to3-week taper of prednisone as he had multiple readmissions --Aggressive pulm toilet, daily therapy, OOB to chair --He has been set up for outpatient follow-up with pulmonary, info on AVS. --He reports some improvement Subjective: Stable on room air with O2 sats 92%. Has been using IS and PEP. Reports his breathing feels improved. Encouraged up to chair for all meals EXAM: Vitals at the time of my exam were Blood pressure (!) 155/92, pulse 98, temperature 98.3 F (36.8 C), temperature source Oral, resp. rate 18, height 6' 1, weight 63.5 kg (140 lb), SpO2 93 %.. In general, the patient is a pleasant male in no acute distress. HEENT exam reveals a moist oralmucosa with no lesions, and the oropharynx is clear. Sclerae and conjunctivae are normal. There is no lymphadenopathy in the neck and there is no wheezing or stridor over the neck. Heart is regular and without murmur, rub, or gallop. Auscultation of the lungs reveals diminished, improved air exchange. Breathing is not labored with no accessory muscle use. Abdomen is nondistended and soft, with no tenderness and normal bowel sounds. Thereis no lower extremity edema, and there is no cyanosis or clubbing. There no rashes or lesions on the skin. The patient is awake, alert, and interactive, with no focal sensory or motor deficits. Mood is Appropriate CT from 04/13/2020; they reveal no PE. Multifocal pneumonia with trace left pleural effusion. Severeupper lobe predominant emphysema noted Lab Results Component Value Date WBC 12.36 (H) 04/17/2020 HGB 11.8 (L) 04/17/2020 HCT 37.1 (L) 04/17/2020 MCV 99.5 04/17/2020 PLT 289 04/17/2020 Lab Results Component Value Date GLUCOSE 134 (H) 04/18/2020 CALCIUM 9.2 04/18/2020 NA 139 04/18/2020 K 3.6 04/18/2020 CL 99 04/18/2020 BUN 12 04/18/2020 CREATININE 0.62 04/18/2020 Lab Results Component Value Date ALT 34 04/18/2020 AST 22 04/18/2020 ALKPHOS 93 04/18/2020 BILITOT 0.2 04/18/2020 Lab Results Component Value Date INR 1.1 04/13/2020 INR 1.1 03/29/2020 INR 1.0 03/02/2020 PROTIME 13.9 04/13/2020 PROTIME 13.5 03/29/2020 PROTIME 12.8 03/02/2020 Care of this patient discussed with Dr. Avila Hollis, OBJECT ORIENTED PROGRAMMER 04/20/20 9:02 AM Associated attestation - Ramon Gramajo MD - 04/20/2020 1:05 PM EST I have seen and independently examined this patient with Katina Hollis CNP. We have discussed the labs, imaging, exam and plan. I agree with the medical decision-making as outlined below except where otherwise specified. Subjective: Events from this am and overnight reviewed. Vitals Reviewed GENERAL: NAD on room air HEENT: EYES: Pupils equal, round and reactive, extraocular muscles intact.MOUTH: moist NECK:No stridor. HEART: regular rate and rhythm. No murmurs, rubs or gallops. LUNGS: Clear breath sounds bilaterally ABDOMEN: Soft, nontender, non-distended. EXTREMITIES: No edema NEURO:non-focal, grossly intact. SKIN: grossly free of rash. Impression/Plan: Acute on chronic hypoxic respiratory failure Multifocal pneumonia Acute exacerbation of COPD Tobacco abuse Continues to improve from pulmonary standpoint. On RA today. Complains of hip pain. Encourage increased activity. Discussed with him about the importance of not doing cocaine and quitting smoking. Continue current inhalational therapy. Can f/u with us as OP. Will sign off. Call for ?s * Joselin Reed LISW - 04/19/2020 2:29 PM EST COMPLEX DISCHARGE Date: 04/19/2020 Time: 2:29 PM Patient Name: Wolf Turcios Date of : 1960 Sex: Male Discharge Planning Living Arrangements: Spouse/significant other Support Systems: Spouse/significant other Assistance Needed: no Type of Residence: Homeless Prior to Admission Home Care Services: No Anticipated Facility Type: residential facility Anticipated Discharge Plan Anticipated Facility Type: residential facility Situation/Background: Patient is from home. Patient presented to [facility] with multifocal pneumonia. Therapy recommendations currently support nursing home facility placement at discharge. Physical therapy: up to 5 days per week, [facility] 17; Occupational therapy: 21. Patient is in agreement with skilled facility placement. Action: SW awaiting precert. Recommendation: SW to follow for discharge plan. * Bekah Lemon - 04/19/2020 11:00 AM EST Spiritual Care Progress Note Completed by: Bekah Lemon Person(s) Present During this Visit: Patient Time Spent in Direct Patient Care: 45 Narrative: Senior Care Provider visited pt while rounding on unit. Pt shared an eagerness to tell his story. Senior Care Provider provided pastoral care as described below. Pastoral Care will remain available 29/12 upon request. Patients Response to Pastoral Care: Appeared to be well-engaged Planning for Future Visits: PRN, Pt requested on-going visits Patient's Spiritual Needs Assessment Sources of Connection Unable to Determine Beliefs and Practices Image of the [place] Role of [place] in Patient's Illness Spiritual Wellness - Activities and Resources Grief Assessment Expressed / Stated Feelings Attitude Towards Own Illness Understanding of Patients Coping Mechanisms Spiritual Diagnosis Awareness of the Sacred Facilitated Interventions Active Listening, Life Review, Validated Emotions/Feelings Spiritual and Emotional Outcomes Appreciative Resources Provided Bereavement Resources Spiritual Plan of Care Continue Healing Process Patient's Evangelical Needs Assessment Evangelical Connection Not Discussed Evangelical Home Mosque Christianity Affiliation Local Amish Name Evangelical Resources Evangelical Rituals Evangelical Materials Provided Expressed Outcomes Expressed Gratitude Bekah Lemon M.Div. Awning Erector, [facility] * Katina Hollis CNP - 04/19/2020 9:39 AM EST Pulmonary Progress Note Patient Name: Wolf Turcios Admit Date: MR #: [id number] : 1960 Wolf Turcios is a 59 y.o. male patient of Karma Mark CNP with a history of COPD, Asthma, TIA, Thoracic aortic aneurysm, Hypertension, Hyperlipidemia, PUD, Polysubstance use, Tobacco abuse, presented with multifocal pneumonia. Assessment and Plan/Recommendations: 1. Acute on chronic hypoxic respiratory failure: --Required O2 up to 4-5 L NC on admit --Difficult situation, recurrent admits with COPD, drug use, ongoing tobacco abuse, homeless status. He is high risk for readmissions as long as he uses. Per therapy notes, SNF recs. --He does not have home O2 (he has been living in a warehouse) . --Acute decompensation due to COPD exacerbation and pneumonia, tx as below --Continue aggressive pulmonary toilet --Wean oxygen as tolerated with goal O2 sats > 88% --Has been on room air to low dose O2 2L NC. May need O2 at time of dc to SNF. Check exertional O2 sats to see if he would qualify for O2 --Plan for SNF at time of dc. 2. Multifocal pneumonia --Has multiple recent admissions and has high risk for multidrug-resistant organisms --Also has poor dentition --Had 3 days azithro and Ceftriaxone, then switched to Zosyn to cover anaerobes and Pseudomonas. Will plan for 10 days total treatment. Continue Zosyn for now, can switch to po Augmentin if ready fordc before completes the course. --Sputum cx not sent, all other cx neg, MRSA neg, antigens negative. --Aggressive pulm toilet, IS, PEP 3. Tobacco usage as well as substance abuse including cocaine --UDS positive for cocaine, opioids, buprenorphine, and fentanyl --Patient acknowledges crack cocaine use but adamantly denies opiate use --1/2 PPD smoker. Patch. Encourage cessation --Addiction and BH teams folllowing 4. Acute exacerbation of COPD --Known COPD, on home O2 1-2 L NC. Has home MN machine and Symbicort and Spiriva --Tx of acute COPDE: MN txs, Symbicort, Spiriva, Pred 40 mg, down to 20 mg 11/12 with plan for 2 to3-week taper of prednisone as he had multiple readmissions --Aggressive pulm toilet, daily therapy, OOB to chair --He has been set up for outpatient follow-up with pulmonary, info on AVS. --He reports some improvement Subjective: Stable on 2L NC O2. Has been using IS and PEP. Reports his breathing feels improved, less seretions. Encouraged up to chair. EXAM: Vitals at the time of my exam were Blood pressure (!) 150/87, pulse 87, temperature 98.1 F (36.7 C), resp. rate 16, height 6' 1, weight 63.5 kg (140 lb), SpO2 95 %.. In general, the patient is a pleasant male in no acute distress. HEENT exam reveals a moist oral mucosa with no lesions, and the oropharynx is clear. Sclerae and conjunctivae are normal. There is no lymphadenopathy in the neck and there is no wheezing or stridor over the neck. Heart is regular and without murmur, rub, orgallop. Auscultation of the lungs reveals diminished, improved air exchange. Breathing is not labored with no accessory muscle use. Abdomen is nondistended and soft, with no tenderness and normal bowel sounds. Thereis no lower extremity edema, and there is no cyanosis or clubbing. There no rashes or lesions on the skin. The patient is awake, alert, and interactive, with no focal sensory or motor deficits. Mood is Appropriate CT from 04/13/2020; they reveal no PE. Multifocal pneumonia with trace left pleural effusion. Severeupper lobe predominant emphysema noted Lab Results Component Value Date WBC 12.36 (H) 04/17/2020 HGB 11.8 (L) 04/17/2020 HCT 37.1 (L) 04/17/2020 MCV 99.5 04/17/2020 PLT 289 04/17/2020 Lab Results Component Value Date GLUCOSE 134 (H) 04/18/2020 CALCIUM 9.2 04/18/2020 NA 139 04/18/2020 K 3.6 04/18/2020 CL 99 04/18/2020 BUN 12 04/18/2020 CREATININE 0.62 04/18/2020 Lab Results Component Value Date ALT 34 04/18/2020 AST 22 04/18/2020 ALKPHOS 93 04/18/2020 BILITOT 0.2 04/18/2020 Lab Results Component Value Date INR 1.1 04/13/2020 INR 1.1 03/29/2020 INR 1.0 03/02/2020 PROTIME 13.9 04/13/2020 PROTIME 13.5 03/29/2020 PROTIME 12.8 03/02/2020 Care of this patient discussed with Dr. Avila Hollis CNP 04/19/20 9:39 AM Associated attestation - Ramon Gramajo MD - 04/19/2020 3:09 PM EST I have seen and independently examined this patient with Katina Hollis CNP. We have discussed the labs, imaging, exam and plan. I agree with the medical decision-making as outlined below except where otherwise specified. Subjective: Events from this am and overnight reviewed. Vitals Reviewed GENERAL: NAD on room air HEENT: EYES: Pupils equal, round and reactive, extraocular muscles intact.MOUTH: moist NECK:No stridor. HEART: regular rate and rhythm. No murmurs, rubs or gallops. LUNGS: Clear breath sounds bilaterally ABDOMEN: Soft, nontender, non-distended. EXTREMITIES: No edema NEURO:non-focal, grossly intact. SKIN: grossly free of rash. Impression/Plan: Acute on chronic hypoxic respiratory failure Multifocal pneumonia Acute exacerbation of COPD Tobacco abuse Continues to improve from pulmonary standpoint. On minimal oxygen at this time. Encourage increasedactivity and wean oxygen as tolerated. Discussed with him about the importance of not doing cocaineand quitting smoking. Continue current inhalational therapy. * Angelika Hermosillo MD - 04/19/2020 9:35 AM EST [facility] DAILY PROGRESS NOTE Assessment and Plan Perpetual Assessment: Wolf Turcios is a 59 y.o. male patient of Karma Mark CNP with a history of COPD, Asthma, TIA, Thoracic aortic aneurysm, Hypertension, Hyperlipidemia, PUD, Polysubstance use, Tobacco abuse, presented with multifocal pneumonia. Acute Respiratory Failure with Hypoxia Does not use O2 at baseline Due to PNA Requiring 3L NC during most of stay Wean down as able, IS/PEP Suspect near his baseline 02 status Sepsis, POA, resolved Multifocal Pneumonia Left Para-pneumonic Effusion WBC 14.51, tachycardia, tachypnea on admission CTPA reveals multifocal pneumonia and trace parapneumonic effusion Micro data unrevealing Rocephin/Zithromax escalated to zosyn, will stop antibiotics at discharge Clinically with slow improvement of cough, dyspnea but remains hypoxic Effusion not large enough for paracentesis Pulmonary following COPD exacerbation Due to ongoing Tobacco use, polysubstance abuse and PNA Continue Symbicort, DuoNeb/PRN albuterol nebulizers Prolonged steroid taper Polysubstance Abuse UDS positive for cocaine, opioids, buprenorphine, and fentanyl Addiction Medicine discussed options at length Drug of choice typically cocaine, does not seem to have opioid use disorder Given outpatient resources Atypical chest pain Likely MSK etiology secondary to cough CTPA limited by respiratory motion but negative for PE to proximal segmental level EKG sinus tachycardia, no acute ST/T changes appreciated Serial troponin negative x2 Trial of Lortab elixer (04/15) Nausea and vomiting, Constipation Lipase/LFTs WNL CT abdomen/pelvis with IV contrast negative Zofran PRN Tolerating PO Bowel regimen, escalate as needed Essential hypertension HCTZ held on admission, now resumed BPs stable Tobacco abuse Nicotine patch, PRN nicotine gum Hypokalemia Resolved Severe Protein calorie Malnutrition Body mass index is 18.47 kg/m . Supplement Code Status: Full Code Quality Measures DVT Prophylaxis: Lovenox Foy Catheter: None Disposition Medically stable for discharge to SNF with Outpatient Testing: CXR in 8 weeks Subjective Still coughing. Off while I was in the room, saturation was ok but he had some mild conversational dyspnea Review of Systems All systems have been reviewed and are negative except as noted in HPI or below Objective BP (!) 150/87 Pulse 87 Temp 98.1 F (36.7 C) Resp 16 Ht 6' 1 Wt 63.5 kg (140 lb) SpO2 95% BMI 18.47 kg/m Physical Examination General Appearance: alert, chronically ill, and in no acute distress HEENT: Head- normocephalic; Ears- external auditory canals clear, hearing intact; Nose- no nasal discharge; Throat- oropharynx normal Cardiovascular: regular rate and rhythm; normal S1, S2; no murmurs, rubs, clicks or gallops; no peripheral edema Respiratory: Prolonged expiration, diminished with course crackles on L, no wheezing, intermittent intercostal retractions Abdomen: soft, non-tender, non-distended; positive bowel sounds Neurological: alert, oriented x 3, normal speech; no focal findings or movement disorder noted Musculoskeletal: no deformity, minimal muscle mass Skin: normal coloration, texture and turgor; no lesions or eruptions Psych: normal mood and affect Results/Medications Reviewed 04/19/20 9:35 AM Laboratory, Cardiology, Medications and Transcriptions * Max Yee - 04/18/2020 1:36 PM EST Spiritual Care Progress Note Completed by: Max Yee Person(s) Present During this Visit: Patient Time Spent in Direct Patient Care: 15 Narrative: Pt expressed frustration that he was back in the hospital. Pt was grateful for clothing even though it was not a perfect fit. Pt received a hoodie and a pair of pants. Patients Response to Pastoral Care: Expressed Gratitude for Visit Planning for Future Visits: PRN Patient's Spiritual Needs Assessment Sources of Connection Beliefs and Practices Image of the Brigitte Role of [place] in Patient's Illness Spiritual Wellness - Activities and Resources Grief Assessment Expressed / Stated Feelings Attitude Towards Own Illness Understanding of Patients Coping Mechanisms Spiritual Diagnosis Facilitated Interventions Spiritual and Emotional Outcomes Resources Provided Bereavement Resources Spiritual Plan of Care Patient's Evangelical Needs Assessment Evangelical Connection Evangelical Home Christianity Affiliation Local Amish Name Evangelical Resources Evangelical Rituals Evangelical Materials Provided Expressed Outcomes Family / Caregiver Needs Assessment Relationship to Patient Affect at Time of Visit Emotions Expressed During Visit Expressed Concerns Regarding Illness Sources of Hope and Strength Support and Participation in Care Grief Assessment Spiritual Assessment Interventions with Family / Friend Outcomes with Family / Friend * Ramon Gramajo MD - 04/18/2020 11:06 AM EST Pulmonary critical care medicine progress note Patient Name: Wolf Turcios Admit Date: MR #: [id number] : 1960 Dear: Karma Mark CNP (Family); Washington Garces MD Assessment and Plan/Recommendations: Wolf Turcios is a 59 y.o. y/o male with 1. Acute on chronic hypoxic respiratory failure: Apparently has been on 1 to 2 L oxygen at night. Acute decompensation due to COPD exacerbation and pneumonia --Continue aggressive pulmonary toilet --Wean oxygen as tolerated 2. Multifocal pneumonia --Has multiple recent admissions and has high risk for multidrug-resistant organisms --Also has poor dentition --We will continue Zosyn to cover anaerobes and Pseudomonas. Hopefully can transition to Augmentin at discharge to complete a 7-day course --So far all cultures are negative. 3. Tobacco usage as well as substance abuse including cocaine --Encourage cessation 4. Acute exacerbation of COPD --Continue Symbicort and Spiriva at discharge --Continue nebulized treatments while he is here --Plan for 2 to 3-week taper of prednisone as he had multiple readmissions. Will drop prednisone to20 mg a day. Give 20 mg a day for 1 week and 10 mg a day 1 week and stop. --Plan for outpatient follow-up with pulmonary. Thank you for the consult and for allowing me to participate in the care of this nice patient. Please do not hesitate to contact me with any questions or concerns. Chief Complaint/Reason for Visit: Acute hypoxic respiratory failure, pneumonia and COPD History of Present Illness: Wolf Turcios is a 59 y.o. y/o male with a history of COPD, tobacco usage, who presented to [facility] on 04/14/2020 with c/o worsening dyspnea. Patient was recently admitted to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 Relationship status: Not on file Other Topics Concern Not on file Social History Narrative Not on file ? Family History: Family History Problem Relation Age of Onset Diabetes Mother Diabetes Father Throat cancer Sister Heart attack Maternal Grandmother ? ECO ? Performance Status: can climb 2 flights of stairs without significant shortness of breath ? Stents/Valves/Foreign Bodies: None ? Anticoagulation: no Physical Exam: There were no vitals filed for this visit. Gen: WDWN Eyes- no Jaundice Psych- Alert and oriented Neuro- Grossly intact MSK- Normal Gait. Normal range of motion. Resp: non-labored. ?No increased work of breathing. Records review: Independently reviewed previous records See timeline above for details. Laboratory results review: Independently reviewed by me Chemistry Component Value Date/Time NA 139 04/18/2020 0830 NA 142 06/21/2014 1055 K 3.6 04/18/2020 0830 K 4.2 06/21/2014 1055 CL 99 04/18/2020 0830 CL 102 06/21/2014 1055 BUN 12 04/18/2020 0830 BUN 9 06/21/2014 1055 CREATININE 0.62 04/18/2020 0830 CREATININE 0.81 06/21/2014 1055 Component Value Date/Time CALCIUM 9.2 04/18/2020 0830 CALCIUM 9.2 06/21/2014 1055 ALKPHOS 93 04/18/2020 0830 ALKPHOS 75 06/21/2014 1055 AST 22 04/18/2020 0830 AST 15 06/21/2014 1055 ALT 34 04/18/2020 0830 ALT 14 06/21/2014 1055 BILITOT 0.2 04/18/2020 0830 BILITOT 0.3 06/21/2014 1055 ? Pathology review: None pertinent to review ? Radiograph review: Images and report independently reviewed ? Assessment: Wolf Turcios is a 60 y.o. male with bilateral epididymal cysts, bilateral inguinal hernias. He has pain only on the right and actually has two epididymal cysts on the right. Plan: - To the OR for excision of right epididymal cysts, possible epididymectomy. This will be delayed due to COVID surges in the community as it does not meet criteria to be done at this time. ? ? I discussed diagnostics options, treatment options and risks and benefits of all options. Discussed alternative opinions and referral for 2nd/3rd opinion. Also discussed availability of clinical trial when/if appropriate. ? Patients recommended to read all package inserts for any medications prescribed and schedule another appointment should they have any concerns. Leonardo Perla MD documented in this encounter* Michelle Lindsey, OBJECT ORIENTED PROGRAMMER - 06/14/2020 1:15 PM EST Telephone Visit Via Phone Call Patient ID: Wolf Turcios is a 60 y.o. male Patient phone : [phone] This visit has been fully reviewed with the patient and verbal consent has been obtained. Last visit: 04/20/20 on consults. HPI: HX: asthma, copd, HTN, HLP, polysubstance abuse, TIA ED 05/28/20- dyspnea - tx for copd exacerbation. Treated with antibiotics Hospitalized 04/13-04/22/20 acute respiratory failure, sepsis, multi-focal pneumonia, para-pneumoniceffusion, copd exacerbation, atypical chest pain. Discharged to SNF. Developed covid while there. Hospitalized 03/28-03/30 acute respiratory failure with hypoxia, copd exacerbation He denies shortness of breath. He is struggling with thick mucus and worries he is getting sick. Controller: Spirva, symbicort. Rescue: albuterol - averaging 6 puffs/day; 1 neb treatments per 1-2 x week. Last hospitalization: 05/28/20. Hospitalizations last 12 months for copd/dyspnea: 5 Cough = intermittent Sputum Production = green but not as thick Wheezing = sometimes at night. Supplemental oxygen = n/a Smoking = 8-9 cig/day; 1 pk/day x 37 yrs; 1.5 pk/day x 8yrs; 2.5 pk/day x 5yrs = 61.5 pk/yrs Vape: no Substance: quit crack 2017; used x 35 yrs Secondhand: no Vaccines = flu 2019; pneumo 2020 Pulmonary Rehab participation = no mMRC score: 2 Grade Degree of breathlessness related to activities 0 Not troubled by breathlessness except on strenuous exercise 1 Short of breath when hurrying or walking up a slight hill 2 Walks slower than contemporaries on level ground because of breathlessness, or has to stop for breath when walking at own pace 3 Stops for breath after walking about 100m or after a few minutes on level ground 4 Too breathless to leave the house, or breathless when dressing or undressing The following portions of the patient's history were reviewed and updated as appropriate: Allergies: Codeine Medications He has a current medication list which includes the following prescription(s): acetaminophen, albuterol, albuterol, budesonide-formoterol, cyclobenzaprine, hydrochlorothiazide, montelukast, nicotine,and spiriva respimat. Family History Problem Relation Age of Onset Diabetes Mother Diabetes Father Throat cancer Sister Heart attack Maternal Grandmother Virtual Examination: Speaking full sentences: yes Mood and behavior appropriate: yes Signs of distress: no Active cough: no Audibile wheezing: no Audible congestion in his voice: no CXR 05/28/20 report - Improved bilateral airspace opacities. CTA 04/14/20 - report - Negative for acute pulmonary embolism. Respiratory motion limits evaluation to the proximal segmental level. Multifocal pneumonia with trace left parapneumonic effusion. No acute abdominopelvic findings. Assessment/Plan: 1. COPD severity unknown. Significant emphysema on CTA 04/2020 to my view. -spiriva and symbicort -albuterol 2 puff or 1 neb every 4 hrs prn -mucinex 1 tablet BID as needed -zpack ordered to have on hand to start is symptoms progress -vaccines up to date -consider pulmonary rehab once PFT are obtained. -PFT needed 2. Pneumonia multifocal 04/14/20. Some clearing on chest xray 05/28/20. -Ct chest to evaluate full resolution and ensure there is no underlying lesions due to extensive smoking and drug use. 3. Tobacco dependence currently 8-9 cig/day. Hx: 61.5 pk/yrs. -cessation encouraged. 4. Hx of crack cocaine use x 35 yrs. Quit 2017. 5. Hx covid 04/2020. Provider location: [address] [facility] [address] [place] [id number] Patient location: [address] [place] [address] I have spent 21-30 minutes with the patient discussing current HPI. documented in this encounter* Kaitlynn Ambriz CNP - 07/19/2020 12:22 PM EST [facility] PROGRESS NOTE Assessment and Plan Wolf Turcios is a 60 y.o. male patient of Karma Mark CNP with history of COPD, asthma, HTN, thoracic AAA and substance abuse presented with dyspnea AECOPD Just had ED visit 07/05/20 for same Started prednisone, Azithromycin and pulm toilet with nebs/inhalers Continue mucinex and add Singulair Initially required BiPAP in ED, weaned to RA on admit Stable on RA since (07/18) Referral to pulm outpatient Sepsis due to Aspiration PNA Reported choking on nicorette gum [employer] Recently was treated for PNA and has had COVID in the past Current imagine looks better but increased sputum production Initiated on Azithromycin and Unasyn Reflex lactate pending as first was elevated at 3, improved to 2.6 on repeat IVF Blood cx NGTD Globus Sensation Pt reports has been feeling a globus sensation the last few days Discussed the need for outpatient endoscopy with his history of smoking and recent aspiration concerns This can be done outpatient through PCP He is tolerating solid foods diet and swallowing his pills here without problems Essential HTN Can continue home hydrochlorothiazide H/O substance abuse On suboxone which will be continued Tobacco abuse Trying to quit and using Nicotine gum Admitted From: Home Medication Reconciliation: Verified Code Status: Full Code Quality Measures DVT Prophylaxis: Lovenox Foy Catheter: None Disposition Discharge Location: Home Estimated Discharge Date: 07/19 Outpatient Testing: PFT Subjective Feeling much better. No new concerns today. Wishing to go home. Review of Systems All systems have been reviewed and are negative except as noted in HPI or below Objective BP (!) 157/96 (BP Location: Right arm, Patient Position: Lying) Pulse 90 Temp 98.2 F (36.8 C) (Oral) Resp 16 Ht 6' 1 Wt 65.8 kg (145 lb) SpO2 94% BMI 19.13 kg/m Physical Examination General Appearance: alert, well appearing, and in no acute distress HEENT: Head- normocephalic; Eyes- PERRLA, EOMI; Ears- external auditory canals clear, hearing intact; Nose- no nasal discharge; Throat- oropharynx normal Cardiovascular: regular rate and rhythm; normal S1, S2; no murmurs, rubs, clicks or gallops; no peripheral edema Respiratory: lungs clear to auscultation; without wheezes, rales or rhonchi Abdomen: soft, non-tender, non-distended; positive bowel sounds Neurological: alert, oriented x 3, normal speech; no focal findings or movement disorder noted Musculoskeletal: no significant deformity or tenderness to palpation Skin: normal coloration, texture and turgor; no lesions or eruptions Psych: normal mood and affect Results/Medications Reviewed 07/19/20 12:22 PM Laboratory, Medications and Transcriptions * Kaitlynn AmbrizLAM - 07/18/2020 2:23 PM EST [facility] PROGRESS NOTE Assessment and Plan Wolf Turcios is a 60 y.o. male patient of Karma Mark CNP with history of COPD, asthma, HTN, thoracic AAA and substance abuse presented with dyspnea AECOPD Just had ED visit 07/05/20 for same Started prednisone, Azithromycin and pulm toilet with nebs/inhalers Continue mucinex and add Singulair Initially required BiPAP in ED, weaned to RA on admit Stable on RA (07/18) Sepsis due to Aspiration PNA Reported choking on nicorette gum [employer] Recently was treated for PNA and has had COVID in the past Current imagine looks better but increased sputum production Iniitiated on Azithromycin and Unasyn Reflex lactate pending as first was elevated at 3, improved to 2.6 on repeat IVF Blood cx NGTD Essential HTN Can continue home hydrochlorothiazide H/O substance abuse On suboxone which will be continued Tobacco abuse Trying to quit and using Nicotine gum Admitted From: Home Medication Reconciliation: Verified Code Status: Full Code Quality Measures DVT Prophylaxis: Lovenox Foy Catheter: None Family Contact Information: Disposition Discharge Location: Home Estimated Discharge Date: 07/19 if blood cx negative Outpatient Testing: TBD Subjective Feeling much better. No new complaints. Review of Systems All systems have been reviewed and are negative except as noted in HPI or below Objective BP (!) 151/92 Pulse (!) 105 Temp 97.9 F (36.6 C) (Oral) Resp 12 SpO2 94% Physical Examination General Appearance: alert, well appearing, and in no acute distress HEENT: Head- normocephalic; Eyes- PERRLA, EOMI; Ears- external auditory canals clear, hearing intact; Nose- no nasal discharge; Throat- oropharynx normal Cardiovascular: regular rate and rhythm; normal S1, S2; no murmurs, rubs, clicks or gallops; no peripheral edema Respiratory: lungs clear to auscultation; without wheezes, rales or rhonchi Abdomen: soft, non-tender, non-distended; positive bowel sounds Neurological: alert, oriented x 3, normal speech; no focal findings or movement disorder noted Musculoskeletal: no significant deformity or tenderness to palpation Skin: normal coloration, texture and turgor; no lesions or eruptions Psych: normal mood and affect Results/Medications Reviewed 07/18/20 2:23 PM Laboratory, Microbiology, Medications and Transcriptions documented in this encounter* Max Wright IV, MD - 07/20/2020 8:47 AM EST [facility] Patient Name:Wolf Turcios Date:07/22/20 Patient :1960 Patient Age:60 y.o. CC: Chief Complaint Patient presents with Right Hip - Follow-up Right Knee - Follow-up SUBJECTIVE: The patient presents complaining of a 2 year history of right hip pain. The patient denies any acute injury that initiated the pain. The patient reports that the pain developed over time. The patientreports the pain progressively became more severe. The pain is aggravated by walking. The patient has tried rest and ice without significant relief. The patient denies any prior history of injury to the hip or history of similar pain in the hip. The patient does not practice any special diet. The denies any prior history of stress fracture. The constitutional, musculoskeletal, neurological reviewof systems were negative unless otherwise stated in the history of present illness. The patient s past medical history, allergies, medication list, social history, and family medical history were documented, updated, and reviewed in the chart. OBJECTIVE Vitals: documented and reviewed in the chart. General: alert, cooperative, well appearing, in no apparent distress. Hip: Inspection of the bilateral hip demonstrates there is no obvious deformity or effusion. The bilateral hip is stable without evidence of dislocation. There is normal flexion, extension, internal and external rotation of the hip bilaterally. There is pain with internal and external rotation. Strength is 5/5 in the hip bilaterally. There is no tenderness to palpation along the greater trochanteric bursa. There is no tenderness to palpation over the ASIS or AIIS. There is tenderness to palpation over the anterior aspect of the hip. The piriformis and psoas muscles demonstrate normal flexibility and are nontender to palpation. The hamstring muscles demonstrate normal flexibility and are nont irving to palpation. There is an intact distal neurovascular examination. There is pain with resisted hip flexion. Skin: The skin is without jaundice. It is intact without pathologic lesions, erythema, vesicles, discharge, or rash. Palpation of the skin is normal without induration, subcutaneous nodules, or tightening. Extremities: There is no clubbing, cyanosis, or edema. 2+ peripheral pulses. Radiology: X-rays of the Right Hip (2 views, AP and lateral views) Findings: Normal bone mineralization. The joint spaces are decreased with cyst formation, bony sclerosis, and osteophyte formation. The femoral head is well seated in the acetabulum. The pubic symphysis is normal. There is no evidence of fracture or dislocation. There is no evidence for stress fracture or stress reaction. These were reviewed today. ASSESSMENT / PLAN 1. Primary osteoarthritis of right hip Ambulatory referral to Orthopedics ibuprofen (ADVIL,MOTRIN) 800 MG tablet Right Hip OA: He will be referred to Orthopaedic Surgery, Dr. Peralta. He was given a script for Motrin 800 mg TID as needed for pain. He will follow up with his [facility] physician for any other medications as he is on Suboxone. He will follow up as needed. Max Wright IV, MD documented in this encounter* Victor Hugo Elena RN - 07/26/2020 10:32 AM EST 07/26/20 1028 Home Oxygen Evaluation How was the test performed? During exercise Patient on Oxygen during testing No Resting Saturation 93 SaO2 Pre Exercise Saturation 90 SaO2 Exercise Saturation 88 SaO2 Recovery Saturation 91 SaO2 Evaluation completed. Care management notified. Recovered to 915 with 2L of oxygen via NC. * Kaitlynn Ambriz CNP - 07/26/2020 10:00 AM EST OBSERVATION DISCHARGE NOTE Assessment and Plan Wolf Turcios is a 60 y.o. male patient of Karma Mark CNP with history of COPD, asthma, HTN, thoracic AAA, TIA, and substance abuse who presented with dyspnea and leg swelling. Acute COPD Exacerbation Admission 07/17/20 for the same Also diagnosed with sepsis due to aspiration pneumonia at that time and treated with Unasyn while IP Discharged home 07/19/20 with prednisone, Augmentin, azithromycin VBG on admission with pH 7.44, pCO2 39.3, lactic acid 3.5 Reflex lactic acid improved to 2.1 CXR on admission with mild right basilar atelectasis CTPA on admission with decreased consolidation in the RLL compared to last CT on 07/17, right middlelobe opacities resolved compared to last, severe emphysema noted Continued home prednisone, Mucinex, Singulair, Symbicort Patient had not completed home course of Augmentin, remaining doses ordered Started scheduled Duo-Nebs and incentive spirometry Patient requiring supplemental oxygen currently at 1-2LNC this admission Discussed with pulm team, hold off on consult. Pt has upcoming follow up and was just seen in clinic last month. Plan for Zithromax TID at discharge once course of Augmentin completed Will trial for home oxygen Pt has nebulizer and inhalers at home Bilateral Lower Extremity Edema New onset since last admission Patient also reports swelling of tongue which was not noted on exam Patient believes swelling is due to reaction to antibiotics CTPA on admission with no evidence of pulmonary embolism Venous duplex US of bilateral LEs preliminary read negative for thrombosis Echocardiogram 10/2019 with EF of 55-60% and mild diastolic dysfunction Low concern for medication reaction due to patent airway, no tongue or throat swelling noted on exam, no rash or skin lesions Give Lasix IV x 1 Pt reports increased salt intake at home, advised to hold off Discussed he will need outpatient sleep study Advised to monitor BP at home and maintain good BP control Musculoskeletal Pain S/p mechanical fall one week ago onto right hip XR right hip/pelvis negative for acute fracture/dislocation, moderate to severe osteoarthritis withjoint space narrowing noted Patient comfortable at rest, pain occurs with ambulation Ibuprofen PRN ordered for pain Hyperglycemia Blood glucose 190 on admission No history of diabetes per patient Likely due to current steroid use Globus sensation Present on last admission 07/17-07/19 Patient reports feeling of tongue swelling as well but denies difficulty breathing or swallowing No swelling noted on exam Follow up with outpatient EGD as recommended at last discharge Essential HTN Continue home hydrochlorothiazide Substance abuse Tobacco use Continue home suboxone Ordered nicotine gum Admitted From: ED Medication Reconciliation: Verified Code Status: Full Code Quality Measures DVT Prophylaxis: Lovenox Foy Catheter: Absent Disposition Outpatient Testing: EGD, PFTs Physical Exam General: no acute distress CV: regular rate and rhythm; no murmur, rubs, gallops Resp: lungs clear to auscultation bilaterally Abdomen: soft, non-tender, non-distended, positive bowel sounds Neuro: no gross deficits Disposition The patient was appropriately risk stratified for observation level of care. I had a [id number] encounter with the patient on the day of discharge which included an appropriate physical exam. Discharge instructions and follow-up care were discussed in person with the patient. documented in this encounter* Betty Dean PA-C - 08/13/2020 12:12 PM EST [facility] [place] PROGRESS NOTE Assessment and Plan Wolf Turcios is a 60 y.o. male patient of Karma Mark CNP with history of COPD, opiate dependence and nicotine dependence presented with fevers, shortness of breath, cough found to haveacute on chronic respiratory failure and severe sepsis due to HAP. Acute on chronic respiratory failure with hypoxia COPD exacerbation 2L NC baseline --> 4L on admission Worsening tachypnea with retractions on 08/11 on NC --> improved on brief BiPAP Wheezes with diminished BS 08/11 --> start pred, azithro, increased nebs Continued home inhalers IS/PEP Pt on 2 Lpm NC 08/13 Pt feels back to baseline 08/13 Pt will FU with PCP Severe Sepsis HAP 07/10 MSSA pneumonia Fever, tachycardia, tachypnea with leukocytosis to 16k on admission, lactate normal CXR (08/08) showed Left perihilar infiltrate CXR (08/11) -- worsening L infiltrate with trace pleural effusions Recently discharged (07/19, 07/26) on Augmentin and then Azithro 3x/wk Blood cx NG after 48 hours Sputum cx -- Moderate MSSA (MRSA probe positive) Vanc/cefepime --> cefazolin (08/12 - ), would treat for 10 days total with Doxycycline and finish zithromax course Chest pain Pt with CP (08/10) am resolved with nitroglycerin EKG sinus tachycardia without ST elevation Trops negative x2 Pleuritic pain on exam 08/11 -- improved with NIV Left sided chest pain that is reproducible to palpation 08/13 Opioid use disorder in remission Continued home Suboxone. Tobacco abuse Pt said he quit smoking 4 weeks ago Uses nicotine gum PRN at home Nicoderm patch provided while inpt Right leg swelling Chronic pain in right leg Slight edema in right leg compared to left that is non pitting and without signs of cellulitis. Venous doppler of right leg 08/12 negative for DVT. Positive LN enlarged. Family Contact Information: Day Turcios, daughter --> pt declined having family updated currently Code Status: Full Code Quality Measures DVT Prophylaxis: Lovenox Foy Catheter: None Disposition Discharge Location: From home Estimated Discharge Date: 08/13 Outpatient Testing: FU with PCP Subjective Pt sitting up in bed. He had been off oxygen this morning but the sun was beating down on him so heput it back on. 2 Lpm NC. Pt now off oxygen again. Said he had an episode of chest pain on left side with coughing. Relieved with NTG. Denies nausea or vomiting. Denies feeling dizzy or lightheaded. Denies abdominal pain. He has chronic right leg pain. He is concerned because he current living situation has black mold. 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 Pt says he is back to himself and he wishes to go home. He will FU with his family doctor. Review of Systems All systems have been reviewed and are negative except as noted in HPI or below Objective BP (!) 161/87 (BP Location: Right arm, Patient Position: Sitting) Pulse (!) 107 Temp 99 F (37.2C) (Oral) Resp 16 Ht 6' 2 Wt 75.1 kg (165 lb 9.1 oz) SpO2 93% BMI 21.26 kg/m Physical Examination General Appearance: alert, well appearing, and in no acute distress HEENT: Head- normocephalic; Eyes- EOMI; Ears- external auditory canals clear, hearing intact; Nose-no nasal discharge; Throat-mucous membranes moist Cardiovascular: regular rate and rhythm; normal S1, S2; no murmurs, rubs, clicks or gallops; no peripheral edema Respiratory: lungs clear to auscultation; without wheezes, rales or rhonchi Abdomen: soft, non-tender, non-distended; positive bowel sounds Neurological: alert, oriented x 3, normal speech; no focal findings or movement disorder noted Musculoskeletal: no significant deformity or tenderness to palpation. Slight swelling in right leg compared to left non pitting without signs of cellulitis. Skin: normal coloration, texture and turgor; no lesions or eruptions Psych: normal mood and affect Results/Medications Reviewed 08/13/20 12:12 PM Laboratory, Microbiology, Radiology, Cardiology, Medications and Transcriptions * Lamberto Tan MD - 08/12/2020 7:19 AM EST [facility] [place] PROGRESS NOTE Assessment and Plan Wolf Turcios is a 60 y.o. male patient of Karma Mark CNP with history of COPD, opiate dependence, smoking presented with fevers, shortness of breath, cough found to have acute on chronic respiratory failure and severe sepsis due to HAP. Acute on chronic respiratory failure with hypoxia COPD exacerbation 2L NC baseline --> 4L on admission Worsening tachypnea with retractions on 08/11 on NC --> improved on brief BiPAP Wheezes with diminished BS 08/11 --> start pred, azithro, increased nebs Continue home inhalers Wean to home 2L as tolerated, IS/PEP Severe Sepsis HAP 2/2 MSSA pneumonia Fever, tachycardia, tachypnea with leukocytosis to 16k on admission, lactate normal CXR (08/08) showed Left perihilar infiltrate CXR (08/11) -- worsening L infiltrate with trace pleural effusions Recently discharged (07/19, 07/26) on Augmentin and then Azithro 3x/wk Blood cx NGTD Sputum cx -- Moderate MSSA (MRSA probe positive) Vanc/cefepime --> cefazolin (08/12 - ), would treat for 10 days total Chest pain Pt with CP (08/10) am resolved with nitroglycerin EKG sinus tachycardia without ST elevation Trops negative x2 Pleuritic pain on exam 08/11 -- improved with NIV Opioid use disorder in remission Continue home Suboxone. Tobacco abuse Encouraged cessation Nicoderm patch Family Contact Information: Day Turcios, daughter --> pt declined having family updated currently Code Status: Full Code Quality Measures DVT Prophylaxis: Lovenox Foy Catheter: None Disposition Discharge Location: From home Estimated Discharge Date: possible 08/13 pending clinical improvement Outpatient Testing: TBD Subjective Feels much better today, cough still fairly productive but SOB improved. Denies any current CP, lightheadedness, fever/chills, abd pain, N/V. Review of Systems All systems have been reviewed and are negative except as noted in HPI or below Objective BP (!) 146/98 (BP Location: Left arm, Patient Position: Lying) Pulse 97 Temp 98.2 F (36.8 C) (Oral) Resp (!) 31 Ht 6' 2 Wt 75.1 kg (165 lb 9.1 oz) SpO2 98% BMI 21.26 kg/m Physical Examination General Appearance: alert, thin and appears older than stated age, in NAD HEENT: Head- normocephalic; Eyes- EOMI; Throat- oropharynx normal Cardiovascular: tachycardic, regular rhythm; normal S1, S2; no murmurs, rubs, clicks or gallops; noperipheral edema Respiratory: lungs with bibasilar rhonchi; no rales/wheezes; no distress on 3L NC Abdomen: soft, non-tender, non-distended; positive bowel sounds Neurological: alert, oriented x 3, normal speech; no focal neuro deficits Musculoskeletal: no significant deformity or tenderness to palpation Skin: warm and dry, no rashes Psych: normal mood and affect Results/Medications Reviewed 08/12/20 7:19 AM Laboratory, Microbiology, Radiology, Medications and Transcriptions * Mariaelena Lo [facility],PharmD - 08/11/2020 8:19 AM EST PHARMACOTHERAPY NOTE: Antimicrobial Therapy Follow-up Assessment / Plan: Wolf Turcios is a 60 y.o. male initiated on vancomycin for sepsis. A trough of 7.1 mcg/mL was drawn ~12 hours after the 4th dose of vancomycin. Trough below goal, will increase to vancomycin 1500 mg q12h (estimated AUC 471). Pharmacy to monitor and adjust therapy asneeded. Please contact pharmacy with any questions. Subjective: Current antibiotic regimen includes: Cefepime 2g q8h Vancomycin 1500mg q12h Objective: Labs include: WBC (K/mcL) Date Value 08/11/2020 9.09 06/21/2014 7.20 Creatinine (mg/dL) Date Value 08/11/2020 0.52 06/21/2014 0.81 Estimated Creatinine Clearance: 142.7 mL/min (by C-G formula based on SCr of 0.52 mg/dL). Patient Tmax (last 24 hours): 101.5 F Micro: positive MRSA probe (08/10/20); cultures pending Pharmacist: Mariaelena Lo RPh,PharmD Contact Number: Denisse, Secure Chat * Lamberto Tan MD - 08/11/2020 7:54 AM EST [facility] [place] PROGRESS NOTE Assessment and Plan Wolf Turcios is a 60 y.o. male patient of Karma Mark CNP with history of COPD, opiate dependence, smoking presented with fevers, shortness of breath, cough found to have acute on chronic respiratory failure and severe sepsis due to HAP. Acute on chronic respiratory failure with hypoxia COPD exacerbation 2L NC baseline --> 4L on admission Worsening tachypnea with retractions on 08/11 on NC --> transferred to stepdown Started on intermittent BiPAP Wheezes with diminished BS 08/11 --> start pred, azithro, increased nebs Continue home inhalers Severe Sepsis HAP 2/2 MRSA pneumonia Fever, tachycardia, tachypnea with leukocytosis to 16k on admission, lactate normal CXR (08/08) showed Left perihilar infiltrate Recently discharged (07/19, 07/26) on Augmentin and then Azithro 3x/wk Cefepime/Vanco started on admission, continue pending culture data Blood cx NGTD Sputum cx -- Moderate staph aureus (speciation pending but MRSA probe +) Repeat CXR pending -- eval for evolving pleural effusion given above Chest pain Pt with CP (08/10) am resolved with nitroglycerin EKG sinus tachycardia without ST elevation Trops negative x2 Pleuritic pain on exam 08/11 -- improved with NIV Opioid use disorder in remission Continue home Suboxone. Tobacco abuse Encouraged cessation Nicoderm patch Family Contact Information: Day Turcios, daughter --> pt declined having family updated currently Code Status: Full Code Quality Measures DVT Prophylaxis: Lovenox Foy Catheter: None Disposition Discharge Location: From home Estimated Discharge Date: >2 days pending Cx, clinical improvement Outpatient Testing: TBD Subjective Worsening SOB with severely productive cough this AM, mild chills with pleuritic CP. Feels much worse today. Denies any abd pain but had post-tussive emesis and lightheadedness. Review of Systems All systems have been reviewed and are negative except as noted in HPI or below Objective BP (!) 153/94 (BP Location: Right arm, Patient Position: Lying) Pulse (!) 107 Temp 98.2 F (36.8C) (Oral) Resp 16 Ht 6' 2 Wt 66.8 kg (147 lb 4.3 oz) SpO2 96% BMI 18.91 kg/m Physical Examination General Appearance: alert, appears older than stated age, and in moderate resp distress HEENT: Head- normocephalic; Eyes- PERRL, EOMI; Throat- oropharynx normal Cardiovascular: tachycardic, regular rhythm; normal S1, S2; no murmurs, rubs, clicks or gallops; noperipheral edema Respiratory: lungs with scattered rhonchi, expiratory wheezes and mildly diminished with L basilar rales; moderate distress on 2L NC with retractions and abd breathing Abdomen: soft, non-tender, non-distended; positive bowel sounds Neurological: alert, oriented x 3, normal speech; no focal neuro deficits Musculoskeletal: no significant deformity or tenderness to palpation Skin: warm and dry, no rashes Psych: normal mood and affect Results/Medications Reviewed 08/11/20 7:54 AM Laboratory, Microbiology, Radiology, Medications and Transcriptions * Pablo Davila DO - 08/10/2020 7:26 AM EST [facility] [place] PROGRESS NOTE Assessment and Plan Wolf Turcios is a 60 y.o. male patient of Karma Mark CNP with history of COPD, opiate dependence, smoking presented with fevers, shortness of breath, cough found to have acute on chronic respiratory failure and severe sepsis due to HAP. Severe Sepsis HCAP Fever, tachycardia, tachypnea with leukocytosis to 16k on admission, lactate normal CXR (08/08) showed Left perihilar infiltrate Recently discharged (07/19, 07/26) on abx for aspiration PNA and COPD exacerbation COVID-19 negative Cefepime/Vanco started on admission, continue pending culture data MRSA probe positive Blood cx NGTD Urine antigens negative Sputum cx pending, prelim rare gram positive cocci Acute on chronic respiratory failure with hypoxia Secondary to HAP On 2L O2 at home, requiring 4L O2 on admission Continue IV abx Weaned to home 2L O2 (08/10) Chest pain Pt with CP (/) am resolved with nitroglycerin EKG sinus tachycardia without ST elevation Monitor on tele Cycle trops COPD, no exacerbation Continue home symbicort, holding spiriva Continue duonebs Opioid use disorder in remission Continue home Suboxone. Tobacco abuse Encouraged cessation Nicoderm patch Family Contact Information: Day Turcios, daughter Code Status: Full Code Quality Measures DVT Prophylaxis: Lovenox Foy Catheter: None Disposition Discharge Location: From home Estimated Discharge Date: Likely next week, pending culture data and clinical improvement Outpatient Testing: TBD Subjective Pt with chest pain overnight, none this am. States it got better with nitroglycerin. Still coughingup green phlegm. Review of Systems All systems have been reviewed and are negative except as noted in HPI or below Objective BP 145/83 Pulse (!) 112 Temp 98.6 F (37 C) (Oral) Resp (!) 23 Ht 6' 2 Wt 66.8 kg (147 lb4.3 oz) SpO2 96% BMI 18.91 kg/m Physical Examination General Appearance: alert, appears older than stated age, and in no acute distress HEENT: Head- normocephalic; Eyes- PERRL, EOMI; Ears- external auditory canals clear, hearing intact; Nose- no nasal discharge; Throat- oropharynx normal Cardiovascular: tachycardic, regular rhythm; normal S1, S2; no murmurs, rubs, clicks or gallops; noperipheral edema Respiratory: lungs with scattered rhonchi, no wheezes or rales. On supplemental O2 Abdomen: soft, non-tender, non-distended; positive bowel sounds Neurological: alert, oriented x 3, normal speech; no focal neuro deficits Musculoskeletal: no significant deformity or tenderness to palpation Skin: warm and dry, no rashes Psych: normal mood and affect Results/Medications Reviewed 08/10/20 7:26 AM Laboratory, Microbiology, Radiology, Medications and Transcriptions * Christina Monsivais RN - 08/09/2020 7:53 AM EST COMPLEX DISCHARGE Date: 08/09/2020 Time: 8:02 AM Patient Name: Wolf Turcios Date of : 1960 Sex: Male Discharge Planning Living Arrangements: Alone Support Systems: None(states no one can assist him at home if needed) Assistance Needed: none Type of Residence: Private residence, Other (Comment)([employer]) Prior to Admission Home Care Services: No Patient expects to be discharged to:: home Does the patient need discharge transport arranged?: Yes Current Home Equipment: Oxygen, Wheeled walker Anticipated HME: None Anticipated Home Care Needs: Undetermined Anticipated Discharge Plan Anticipated HME: None Anticipated Home Care Needs: Undetermined Potential for Readmission Potential for Readmission: Yes Potential for Readmission Reason: moderate risk for readmission Patient known to case management from previous admission. [email or web address] Address on facesheet is for [facility]. Called patient's cell phone and spoke with him over the phone. 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 Patient states that he does have his oxygen concentrator there in his room.Patient owns a wheeled walker. He would like [facility] if home health services are needed. He will need to utilize his [employer] medicaid insurance for transportation p:[phone]. * Pablo Davila DO - 08/09/2020 7:42 AM EST [facility] PROGRESS NOTE Assessment and Plan Wolf Turcios is a 60 y.o. male patient of Karma Mark CNP with history of COPD, opiate dependence, smoking presented with fevers, shortness of breath, cough found to have acute on chronic respiratory failure and severe sepsis due to HAP. Severe Sepsis HCAP Fever, tachycardia, tachypnea with leukocytosis to 16k on admission, lactate normal CXR (08/08) showed Left perihilar infiltrate Recently discharged (07/19, 07/26) on abx for aspiration PNA and COPD exacerbation COVID-19 negative Cefepime/Vanco started on admission MRSA probe positive Blood cx NGTD Urine antigens, sputum cx pending Acute on chronic respiratory failure with hypoxia Secondary to HAP On 2L O2 at home, requiring 4L O2 on admission Continue IV abx Wean O2 at tolerated COPD, no exacerbation Continue home symbicort, holding spiriva Continue duonebs Substance use disorder in remission Continue home Suboxone. Tobacco abuse Encouraged cessation Nicoderm patch Family Contact Information: Code Status: Full Code Quality Measures DVT Prophylaxis: Lovenox Foy Catheter: None Disposition Discharge Location: From home Estimated Discharge Date: TBD Outpatient Testing: TBD Subjective Pt complaining of productive cough and shortness of breath. Denies chest pain, nausea or vomiting. Review of Systems All systems have been reviewed and are negative except as noted in HPI or below Objective BP 135/72 Pulse (!) 118 Temp (!) 101.9 F (38.8 C) (Axillary) Resp (!) 26 Ht 6' 2 Wt 61.8kg (136 lb 3.9 oz) SpO2 93% BMI 17.49 kg/m Physical Examination General Appearance: alert, appears older than stated age, and in no acute distress HEENT: Head- normocephalic; Eyes- PERRL, EOMI; Ears- external auditory canals clear, hearing intact; Nose- no nasal discharge; Throat- oropharynx normal Cardiovascular: tachycardic, regular rhythm; normal S1, S2; no murmurs, rubs, clicks or gallops; noperipheral edema Respiratory: lungs with scattered rhonchi, no wheezes or rales. On supplemental O2 Abdomen: soft, non-tender, non-distended; positive bowel sounds Neurological: alert, oriented x 3, normal speech; no focal neuro deficits Musculoskeletal: no significant deformity or tenderness to palpation Skin: warm and dry, no rashes Psych: normal mood and affect Results/Medications Reviewed 08/09/20 7:42 AM Laboratory, Microbiology, Radiology, Medications and Transcriptions documented in this encounter* Michelle Lindsey CNP - 06/21/2020 8:17 AM EST Presurgical pulmonary assessment requested. He is scheduled 06/26/2020 for hydrocelectomy Wolf Turcios is at increased risk for post-operative pulmonary complications given obstructive lung disease, smoking status, age >50, polysubstance drug use. Uncontrolled COPD with 2 admissions and 1 ED visit since 03/28/20. His functional status - fair he states he is able to walk on level ground but must stop to rest due to dyspnea. Immediately reversible risk factors: stop smoking, check PFT to determine degree of obstruction. Possible pulmonary complications related to surgery includes post-operative hypoxemia, infection, respiratory failure requiring mechanical ventilation or exacerbation of underlying lung disease. These risks can be minimized with the following measures: --early mobilization post-operatively as appropriate from an surgical standpoint --aggressive pulmonary toilet with cough and deep breaths using incentive spirometry every 1-2 hours while awake --continuation of home medications --consider albuterol nebulizer treatments every 4-6 hours for the first 24-48 hrs after surgery. --consider positive pressure ventilation such as CPAP in the post-operative setting if there is evidence of hypoventilation --DVT prophylaxis as appropriate from a surgical standpoint documented in this encounter* Leonardo Perla MD - 01/02/2020 11:00 AM EDT General Urology Note ? Reason for visit/Chief complaint: Bilateral epididymal cysts ? Urologic history: [id number] Scrotal US- Bilateral epididymal cysts. No testicular abnormalities. INITIAL VISIT exam- bilateral epididymal cysts, right larger than the left. Bilateral inguinal hernia Pending: Referral to general surgery for bilateral inguinal hernia repair Bilateral excision of epididymal cyst. History of present illness: Wolf Turcios is a 59 y.o. male who presents for evaluation of bilateral epididymal cysts. States he's very bothered by them and is motivated to have them excised. Also was told he had bilateral inguinal hernias which he was supposed to have taken care of but his surgery was canceled due to a positive drug test. States he's clean now and is in the process smoking cessation(4 days). States his testicular cysts are much more bothersome than his hernias. He states he has discomfort with sitting and walking. Review of systems: Const: Denies weight loss, bone pain Endocrine- no night sweats HEENT: Denies new changes in vision CV: Denies C/P Pulm: Denies SOB Abd: Denies constipation, diarrhea, nausea, vomiting Neuro: Denies numbness, tingling MSK: Denies weakness Psych- denies depression : See HPI Medical History: Patient Active Problem List Diagnosis TIA (transient ischemic attack) Essential hypertension Mixed hyperlipidemia Chest pain COPD (chronic obstructive pulmonary disease) (HCC) Bilateral hip pain H/O peptic ulcer Tobacco use Paresthesia and pain of both upper extremities Thoracic aortic aneurysm, without rupture (HCC) COPD with acute exacerbation (HCC) Syncope OA (osteoarthritis) of hip Surgical History: Past Surgical History: Procedure Laterality Date GASTRIC ULCER PERFORATION REPAIR ? Social History: Social History Socioeconomic History Marital status: Single Spouse name: Not on file Number of children: Not on file Years of education: Not on file Highest education level: Not on file Occupational History Not on file Social Needs Financial resource strain: Not on file Food insecurity Worry: Not on file Inability: Not on file Transportation needs Medical: Not on file Non-medical: Not on file Tobacco Use Smoking status: Current Every Day Smoker Packs/day: 0.50 Years: 40.00 Pack years: 20.00 Types: Cigarettes Smokeless tobacco: Never Used Substance and Sexual Activity Alcohol use: No Comment: occ Drug use: Not Currently Types: Cocaine Comment: clean 6 months Sexual activity: Not on file Lifestyle Physical activity Days per week: Not on file Minutes per session: Not on file Stress: Not on file Relationships Social connections Talks on phone: Not on file Gets together: Not on file Attends alevism service: Not on file Active member of club or organization: Not on file Attends meetings of clubs or organizations: Not on file Relationship status: Not on file Other Topics Concern Not on file Social History Narrative Not on file ? ? Family History: Family History Problem Relation Age of Onset Diabetes Mother Diabetes Father Throat cancer Sister Heart attack Maternal Grandmother ? ? ECO ? Performance Status: can climb 2 flights of stairs without significant shortness of breath ? Stents/Valves/Foreign Bodies: None ? Anticoagulation: no Physical Exam: PACU Vitals 01/02/20 1051 BP: (!) 134/92 Pulse: 97 Resp: 18 Gen: WDWN Eyes- no Jaundice Psych- Alert and oriented Neuro- Grossly intact MSK- Normal Gait. Normal range of motion. Resp: non-labored. ?No increased work of breathing. CV: Distal pulses intact. ?Warm and dry. Abd: soft, non-tender, non-distended, midline scar No CVA tenderness : Penis is circumcised. Orthotopic meatus. Testes descended bilaterally and palpable, bilateral epididymal cysts, right > left Records review: Independently reviewed previous records See timeline above for details. Laboratory results review: Independently reviewed by me Chemistry Component Value Date/Time NA 141 11/03/2019 0523 NA 142 06/21/2014 1055 K 4.2 11/03/2019 0523 K 4.2 06/21/2014 1055 CL 107 11/03/2019 0523 CL 102 06/21/2014 1055 BUN 15 11/03/2019 0523 BUN 9 06/21/2014 1055 CREATININE 0.69 11/03/2019 0523 CREATININE 0.81 06/21/2014 1055 Component Value Date/Time CALCIUM 8.7 11/03/2019 0523 CALCIUM 9.2 06/21/2014 1055 ALKPHOS 78 01/09/2017 1945 ALKPHOS 75 06/21/2014 1055 AST 14 01/09/2017 1945 AST 15 06/21/2014 1055 ALT 12 01/09/2017 1945 ALT 14 06/21/2014 1055 BILITOT 0.4 01/09/2017 1945 BILITOT 0.3 06/21/2014 1055 ? Pathology review: None pertinent to review ? Radiograph review: Images and report independently reviewed ? Assessment: Wolf Turcios is a 59 y.o. male with bilateral epididymal cysts, bilateral inguinal hernias. Plan: - Referral to general surgery for bilateral inguinal hernia repair. Will see if they can do a combocase with urology so we can also take care of his epididymal cysts. Otherwise we will allow them totake care of his hernia and we will perform bilateral epididymal cyst excision after he recovers. I spent a total of 45 minutes on this case with > 50% of this time in face to face communicationwith the patient during examination and consultation and the remainder of the time spent independently reviewing medical records, imaging, pathology, and coordinating subsequent care. ? ? I discussed diagnostics options, treatment options and risks and benefits of all options. Discussed alternative opinions and referral for 2nd/3rd opinion. Also discussed availability of clinical trial when/if appropriate. ? Patients recommended to read all package inserts for any medications prescribed and schedule another appointment should they have any concerns. Leonardo Perla MD documented in this encounter Advance Directives No Advanced Directives Records FoundDocuments on File Type Date Recorded Patient Automation Qa Tester Expl anation Advance Directives and Livin g Will 08/04/2019 9:27 AM Latest Code Status on File Code Status Date Activated Date Inactivated Comments Full Code 06/22/2018 1:48 PM Full Code 12/13/2017 11:36 PM 01/09/2018 7:06 PM Documents on File Type Date Recorded Patient Automation Qa Tester Expl anation Advance Directives and Livin g Will 08/11/2019 9:27 AM Latest Code Status on File Code Status Date Activated Date Inactivated Comments Full Code 06/22/2018 1:48 PM 08/11/2019 12:01 PM Documents on File Type Date Recorded Patient Automation Qa Tester Expl anation Advance Directives and Livin g Will 10/21/2019 12:30 PM Latest Code Status on File Code Status Date Activated Date Inactivated Comments Full Code 06/22/2018 1:48 PM 08/11/2019 12:01 PM Full Code 12/13/2017 11:36 PM 01/09/2018 7:06 PM Documents on File Type Date Recorded Patient Automation Qa Tester Expl anation Advance Directives and Livin g Will 08/17/2019 12:30 PM Documents on File Type Date Recorded Patient Automation Qa Tester Expl anation Advance Directives and Livin g Will 11/02/2019 12:52 PM Latest Code Status on File Code Status Date Activated Date Inactivated Comments Full Code 11/02/2019 3:17 PM Full Code - Unverified 11/02/2019 2:40 PM 11/02/2019 3:1 7 PM Full Code 06/22/2018 1:48 PM 08/11/2019 12:01 PM Documents on File Type Date Recorded Patient Automation Qa Tester Expl anation Advance Directives and Livin g Will 11/02/2019 12:52 PM Latest Code Status on File Code Status Date Activated Date Inactivated Comments Full Code 11/02/2019 3:17 PM 11/03/2019 4:21 PM Full Code - Unverified 11/02/2019 2:40 PM 11/02/2019 3:1 7 PM Full Code 06/22/2018 1:48 PM 08/11/2019 12:01 PM Documents on File Type Date Recorded Patient Automation Qa Tester Expl anation Advance Directives and Livin g Will 12/12/2019 12:00 AM Latest Code Status on File Code Status Date Activated Date Inactivated Comments Full Code 11/02/2019 3:17 PM 11/03/2019 4:21 PM Documents on File Type Date Recorded Patient Automation Qa Tester Expl anation Advance Directives and Livin g Will 01/14/2020 12:00 AM Documents on File Type Date Recorded Patient Automation Qa Tester Expl anation Advance Directives and Livin g Will 03/19/2020 4:08 PM Documents on File Type Date Recorded Patient Automation Qa Tester Expl anation Advance Directives and Livin g Will 04/11/2020 8:23 PM Latest Code Status on File Code Status Date Activated Date Inactivated Comments Full Code 04/11/2020 11:46 PM 04/12/2020 3:22 PM Full Code 03/28/2020 5:28 PM 03/30/2020 4:54 PM Full Code 11/02/2019 3:17 PM 11/03/2019 4:21 PM Documents on File Type Date Recorded Patient Automation Qa Tester Expl anation Advance Directives and Livin g Will 04/13/2020 5:14 PM Latest Code Status on File Code Status Date Activated Date Inactivated Comments Full Code 04/14/2020 1:43 AM 04/21/2020 11:54 PM Full Code 04/11/2020 11:46 PM 04/12/2020 3:22 PM Documents on File Type Date Recorded Patient Automation Qa Tester Expl anation Advance Directives and Livin g Will 05/28/2020 12:43 PM Documents on File Type Date Recorded Patient Automation Qa Tester Expl anation Advance Directives and Livin g Will 05/28/2020 12:43 PM Latest Code Status on File Code Status Date Activated Date Inactivated Comments Full Code 04/14/2020 1:43 AM 04/21/2020 11:54 PM Full Code 04/11/2020 11:46 PM 04/12/2020 3:22 PM Full Code 03/28/2020 5:28 PM 03/30/2020 4:54 PM Full Code 11/02/2019 3:17 PM 11/03/2019 4:21 PM Documents on File Type Date Recorded Patient Automation Qa Tester Expl anation Advance Directives and Livin g Will 06/19/2020 12:43 PM Documents on File Type Date Recorded Patient Automation Qa Tester Expl anation Advance Directives and Livin g Will 07/05/2020 12:43 PM Documents on File Type Date Recorded Patient Automation Qa Tester Expl anation Advance Directives and Livin g Will 07/10/2020 12:43 PM Documents on File Type Date Recorded Patient Automation Qa Tester Expl anation Advance Directives and Livin g Will 07/17/2020 3:05 PM Latest Code Status on File Code Status Date Activated Date Inactivated Comments Full Code 07/17/2020 7:16 PM 07/19/2020 5:51 PM Full Code 04/14/2020 1:43 AM 04/21/2020 11:54 PM Documents on File Type Date Recorded Patient Automation Qa Tester Expl anation Advance Directives and Livin g Will 12/12/2019 12:00 AM Documents on File Type Date Recorded Patient Automation Qa Tester Expl anation Advance Directives and Livin g Will 07/26/2020 12:00 AM Latest Code Status on File Code Status Date Activated Date Inactivated Comments Full Code 07/25/2020 12:48 PM 07/26/2020 1:13 PM Full Code 07/17/2020 7:16 PM 07/19/2020 5:51 PM Full Code 04/14/2020 1:43 AM 04/21/2020 11:54 PM Documents on File Type Date Recorded Patient Automation Qa Tester Expl anation Advance Directives and Livin g Will 08/08/2020 11:07 PM Latest Code Status on File Code Status Date Activated Date Inactivated Comments Full Code 08/09/2020 2:50 AM 08/13/2020 4:55 PM Full Code 07/25/2020 12:48 PM 07/26/2020 1:13 PM Documents on File Type Date Recorded Patient Automation Qa Tester Expl anation Advance Directives and Livin g Will 12/29/2019 8:46 AM Documents on File Type Date Recorded Patient Automation Qa Tester Expl anation Advance Directives and Livin g Will 12/29/2019 8:46 AM Documents on File Type Date Recorded Patient Automation Qa Tester Expl anation Advance Directives and Livin g Will 09/21/2020 12:03 PM Documents on File Type Date Recorded Patient Automation Qa Tester Expl anation Advance Directives and Livin g Will 10/03/2020 7:45 PM Documents on File Type Date Recorded Patient Automation Qa Tester Expl anation Advance Directives and Livin g Will 12/13/2020 12:45 PM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 1960 MR #: [id number] Admit Date: Physicians: Karma Mark CNP (Family); No ref. provider found (Referring) Wolf Turcios is a 59 y.o. male patient of Karma Mark CNP with history of COPD, HTN presented with shortness of breath and found to have acute COPD exacerbation. Acute COPD Exacerbation Presents with dyspnea, wheezing In setting of COPD and smoking CXR w/o acute process Start Azithro, Duonebs Scheduled and PRN, Prednisone Resume Symbicort Consult Pulm and SW considering recurrent admission. HTN Resume home HCTZ Polysubstance Abuse Hx of Cocaine, Opiates, Fentanyl use Reports smoking crack few days ago Check UDS Admitted From: Home Medication Reconciliation: Verified Code Status: Full Code Quality Measures DVT Prophylaxis: Lovenox Foy Catheter: None Disposition Outpatient Testing: TBD Chief Complaint Shortness of Breath History of Present Illness Wolf Turcios is a 59 y.o. male patient of Karma Mark CNP with history of Asthma, COPD, HTN presented with shortness of breath and found to have acute COPD exacerbation. Reports onset of shortness of breath since yesterday morning. States this feels like one of his COPD exacerbations. Also reports productive cough. Reports dyspnea on exertion. No fevers, chills, sick contact. Denies chest pain. Reports using crack few days ago. States he does take his medications and has not missed any. Past Medical History Past Medical History: Diagnosis Date Asthma COPD (chronic obstructive pulmonary disease) ([facility]) Emphysema/COPD (HCC) Essential hypertension 01/10/2017 Past Surgical History Past Surgical History: Procedure Laterality Date EYE SURGERY GASTRIC ULCER PERFORATION REPAIR Family History Family History Problem Relation Age of Onset Diabetes Mother Diabetes Father Throat cancer Sister Heart attack Maternal Grandmother Social History Social History Tobacco Use Smoking Status Current Every Day Smoker Packs/day: 0.50 Years: 40.00 Pack years: 20.00 Types: Cigarettes Smokeless Tobacco Never Used Social History Substance and Sexual Activity Alcohol Use Not Currently Comment: occ Social History Substance and Sexual Activity Drug Use Not Currently Types: Cocaine Comment: quit 03/2020 Allergy Information I have reviewed the patient's allergies. Codeine Home Medications Home medications were reviewed. Review Of Systems All systems have been reviewed and are negative except as noted in HPI or below Physical Examination BP (!) 131/97 Pulse 95 Temp 97.3 F (36.3 C) (Oral) Resp (!) 26 Wt 68 kg (150 lb) SpO2 100% BMI 19.79 kg/m General Appearance: alert, well appearing, and in mild respiratory distress HEENT: NCAT, MMM, EOMI, hearing intact Cardiovascular: regular rate and rhythm; normal S1, S2; no murmurs, rubs, clicks or gallops; no peripheral edema Respiratory: Decreased breath sounds bilaterally, faint wheezing throughout, speaking full sentences, comfortable on NC Abdomen: soft, non-tender, non-distended; positive bowel sounds Neurological: alert, oriented x 3, normal speech; no focal findings or movement disorder noted Musculoskeletal: no significant deformity or tenderness to palpation Skin: normal coloration, texture and turgor; no lesions or eruptions Psych: normal mood and affect Laboratory and Additional Data Reviewed Laboratory 04/12/20 12:09 AM Radiology 04/12/20 12:09 AM Cardiology 04/12/20 12:09 AM Medications 04/12/20 12:09 AM Transcriptions 04/12/20 12:09 AM Expected Discharge/Time Spent Based on current clinical information, the expected discharge date is: tomorrow (04/13/2020) documented in this encounter [facility] History and Physical Patient Name: Wolf Turcios : 1960 MR #: [id number] Admit Date: Physicians: Karma Mark CNP (Family); No ref. provider found (Referring) Perpetual Assessment: Wolf Turcios is a 59 y.o. male patient of Krama Mark CNP with a history of COPD, Asthma, TIA, Thoracic aortic aneurysm, Hypertension, Hyperlipidemia, PUD, Polysubstance use, Tobacco abuse, presented with multifocal pneumonia. Multifocal pneumonia Sepsis Acute respiratory failure with hypoxia WBC 14.51, tachycardia, tachypnea, lactic acid WNL on admission COVID-19/influenza negative CTPA reveals multifocal pneumonia and trace parapneumonic effusion Check blood cultures, sputum culture, urine pneumococcal/Legionella antigen, and MRSA probe Continue Rocephin/Zithromax started in ED-add vancomycin secondary to suspected MRSA risk (concern for IVDA given positive UDS) Wean oxygen as tolerated COPD exacerbation Continue prednisone Schedule DuoNeb/PRN albuterol nebulizers Continue Symbicort, hold Spiriva while receiving DuoNebs Atypical chest pain Likely MSK etiology secondary to cough CTPA limited by respiratory motion but negative for PE to proximal segmental level EKG sinus tachycardia, no acute ST/T changes appreciated Serial troponin negative x2 Trial of Toradol Nausea and vomiting Lipase/LFTs WNL CT abdomen/pelvis with IV contrast negative Zofran PRN Diet as tolerated Hypokalemia Potassium 3.1 on presentation Replaced with 40 mEq K-Dur in ED Repeat Chem-7 in the morning Essential hypertension Continue HCTZ Polysubstance abuse UDS positive for cocaine, opioids, buprenorphine, and fentanyl Patient acknowledges crack cocaine use but adamantly denies opiate use Tobacco abuse Nicotine patch, PRN nicotine gum Admitted From: Home Medication Reconciliation: Verified Code Status: Full Code Quality Measures DVT Prophylaxis: Lovenox Foy Catheter: No Disposition Outpatient Testing: Chief Complaint: Dyspnea History of Present Illness: 59 y.o. 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 Patient was admitted to [facility] 04/11-04/12 with COPD exacerbation. Patient was discharged on Zithromax and prednisone taper. Patient returns with worsening dyspnea since discharge. He has had a worsening cough productive of green sputum. Acknowledges subjective fever/chills. He has been having sharp left-sided chest pain worse with cough and movements. Over the last 24 hours patient has developed nausea with multiple zones of nonbloody emesis. Denies abdominal pain or diarrhea. Patient was tachycardic up to 110s and tachypneic up to the 30s in the ED. Patient's oxygen saturations dropped to the low 80s on room air at one point and he was placed on 4 L oxygen with improvement. Past Medical History: Past Medical History: Diagnosis Date Asthma COPD (chronic obstructive pulmonary disease) (HCC) Essential hypertension 01/10/2017 Hyperlipidemia Polysubstance abuse (HCC) PUD (peptic ulcer disease) Thoracic aortic aneurysm (HCC) TIA (transient ischemic attack) Tobacco Abuse Past Surgical Hisory: Past Surgical History: Procedure Laterality Date EYE SURGERY GASTRIC ULCER PERFORATION REPAIR Family History: Family History Problem Relation Age of Onset Diabetes Mother Diabetes Father Throat cancer Sister Heart attack Maternal Grandmother Social History: Social History Tobacco Use Smoking Status Current Every Day Smoker Packs/day: 0.50 Years: 39.00 Pack years: 19.50 Types: Cigarettes Smokeless Tobacco Never Used Social History Substance and Sexual Activity Alcohol Use Not Currently Comment: [facility] Social History Substance and Sexual Activity Drug Use Not Currently Types: Crack cocaine Comment: Crack cocaine last use 3 days ago, denies opiate use including IVDA Allergy Information: I have reviewed the patient's allergies. Codeine Home Medications: Home medications were reviewed. ROS: The following system(s) were reviewed and pertinent findings noted: Constitutional-as in HPI CV-as in HPI Resp-as in HPI GI-as in HPI All other systems reviewed and negative other than HPI PHYSICAL EXAMINATION: Vital Signs- BP (!) 102/59 (BP Location: Right arm, Patient Position: Lying) Pulse (!) 109 Temp 99.8 F (37.7 C) (Oral) Resp 18 Ht 6' 1 Wt 63.5 kg (140 lb) SpO2 92% BMI 18.47 kg/m General- Appears stated age. No acute distress. Eyes- Pupils round and reactive to light bilaterally. Conjunctiva/sclera clear bilaterally. HEENT- Normocephalic/atraumatic. Oropharynx WNL, mucous membranes moist. Neck- Supple, trachea midline, no thyromegaly,no palpable adenopathy Cardiovascular- Tachycardic, regular. No clicks, rubs, murmurs, or gallops noted. No peripheral edema noted. Respiratory- Faint expiratory wheezes throughout lungs. No accessory muscles or increased work of breathing. Abdomen- Soft, mild epigastric TTP, nondistended, normal bowel sounds. Skin- Normal turgor, well-hydrated, no rashes noted. Neurological- Cranial nerves 2 through 12 intact grossly. No focal neurological deficits noted. Psych- Alert and oriented times 3. Normal mood and affect. Laboratory and Additional Data Reviewed: Laboratory 04/14/20 1:51 AM Radiology 04/14/20 1:51 AM Cardiology 04/14/20 1:51 AM Medications 04/14/20 1:51 AM Transcriptions 04/14/20 1:51 AM Expected Discharge/Time Spent Based on current clinical information, the expected discharge date is: TBD (Please note that portions of this note may have been completed with a voice recognition program. Efforts were made to edit the dictations, but occasionally words are mis-transcribed.) documented in this encounter Assessment and Plan 1. Preop examination Medically acceptable risk for elective major procedure with risk factors as outlined below and pending review of the following ordered tests: Letter of pulmonary suitability and completion of pulmonary work-up from patient's 06/14/2020 visit with nurse garland Lindsey. 2. Hydrocele, unspecified hydrocele type Primary management per surgical team. Patient provided instructions on preoperative management of medications including withholding Aspirin, NSAIDS, and specific Herbal Supplements. 3. Preop cardiovascular exam Patient denies any active cardiac conditions and has a revised cardiac risk index of 1. Patient denied any current cardiac symptoms and has less than 4 METS of functional capacity and is at acceptable cardiac risk for elective surgery based on 2014 ACC/AHA guidelines. TTE performed 11/02/2019 revealed normal left ventricular chamber size and function with an ejection fraction of 55 to 60% EKG performed 05/28/2020 read independently today reveals sinus tachycardia biatrial enlargement nonspecific T wave abnormality DVT prophylaxis deferred to surgical service. Recommend utilization of 2016 ACCP guidelines. Apfel score is 1. (Score/Risk of PONV = 0/10%, 1/21%, 2/39%, 3/61%, 4/79%). This score has been externally validated. 4. Chronic obstructive pulmonary disease, unspecified COPD type (HCC) Patient with recent signs and symptoms of COPD exacerbation and decompensated pulmonary function. Will require pulmonary clearance for further risk stratification and optimization prior to elective surgery. 5. Multifocal pneumonia patient's nurse practitioner ordered a CT scan 06/14/2020 as her most recent chest x-ray 05/28/2020 revealed improved by lateral airspace opacities from his pneumonia which he was hospitalized for April 2020 6. History of acute respiratory failure patient has had multiple hospitalizations including March 2020, April 2020 and emergency room visit 05/28/2020 for COPD exacerbations. Patient saw the nurse garland Suarez at the pulmonology office 06/14/2020 and PFTs and a CT scan were ordered. Recommend patient complete this work-up and we will request a letter of pulmonary suitability for the planned procedure from his electrical tester. 7. COVID-19 virus infection patient developed COVID-19 after he was discharged to an ECF following his hospitalization in April 2020 8. History of sepsis patient was hospitalized with sepsis and acute respiratory failure April 2020 9. Essential hypertension BP Readings from Last 1 Encounters: 06/19/20 (!) 151/105 Blood pressure well controlled and optimized for surgery. Recommend continuation of current blood pressure medications in the perioperative period. 10. Allergic state, subsequent encounter patient advised to continue Banophen and Singulair throughout the perioperative period. 11. Gastroesophageal reflux disease without esophagitis Well controlled with PPI/[id number] which should be dosed perioperatively on usual home schedule. 12. Primary osteoarthritis of right hip patient advised to hold NSAIDs in anticipation of planned procedure 13. Thoracic aortic aneurysm, without rupture (HCC) I do not see recent imaging study. CT scan which was ordered 06/14/2020 by nurse practitioner Rosalia for evaluation 14. TIA (transient ischemic attack) this occurred greater than 4 years ago 15. History of thoracoabdominal aortic aneurysm (TAAA) patient has not had a recent imaging study however a CT scan has been ordered by his nurse practitioner at the pulmonology office. Recommend perform this prior to planned procedure 16. Tobacco Abuse Patient currently not manifesting any signs or symptoms of decompensated pulmonary disease and has been counseled on smoking cessation. Patient was advised of potential perioperative adverse effects associated with smoking such as increased risk for post-operative pulmonary complications, poor wound healing, and increased risk for infections. Recommend aggressive pulmonary toilet and lung expansion modalities including deep breathing and IS after surgery and perioperative nebulizers as needed. 17. Opioid use disorder (HCC) patient advised to hold Suboxone 72 hours prior to planned procedure 18. Crack Cocaine Use patient has a history of 35-year crack cocaine use but has been in recovery since 2018 Chief Complaint Patient presents with Pre-operative Medical Risk Stratification History of Present Illness Wolf Turcios is a 60 y.o. male who presents for preoperative medical risk stratification consult at the request of Leonardo Perla MD prior to HYDROCELECTOMY on 06/26/20. This patient has been diagnosed with hydrocele, unspecified hydrocele type (N43.3) and the above procedure has been recommended and scheduled for 06/26/2020. Patient surgery has been rescheduled 3 times due to illness. Patient was hospitalized 03/28/2020 with acute respiratory failure with hypoxia and COPD exacerbation. He was again hospitalized 04/13 through 04/22/2020 with acute respiratory failure sepsis and and pneumonia and was discharged to an [facility] where he developed COVID-19 in April 2020. Patient was seen in the emergency room 05/28/2020 with a COPD exacerbation and treated with antibiotics. Patient saw his pulmonary nurse practitioner Daniela 06/14/2020. At that time chest x-ray from 05/28/2020 which showed improved bilateral airspace opacities therefore CT scan was ordered and pulmonary function tests ordered. Patient COPD was noted to be severe. Patient recommended to complete this work-up and we will request a letter of pulmonary suitability for the planned procedure from her his electrical tester. Patient states just last week he contacted his family physician due to coughing up green phlegm and was given a Zithromax prescription to take as needed as backup. Patient states he took 1 dose and was not planning on taking further medication. Patient believes his current breathing is at his baseline. Patient experienced a TIA 4 years ago. He denies any history of heart problems. 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 He denies a diagnosis of or symptoms concerning for sleep apnea. He denies a diagnosis of liver or kidney disease and is not diabetic. He has high blood pressure which is elevated today. He has GERD. He has osteoarthritis of his right hip and is considering hip replacement surgery. He has chronic low back pain. He has a thoracic abdominal aortic aneurysm. The CT scan that was ordered by his electrical tester would be able to evaluate that as I do not see a recent imaging study. Patient did experience a cardiac echo 11/02/2019 which revealed mild diastolic dysfunction with an ejection fraction of 55 to 60%. He had a coronary calcium CT scan 12/14/2017 with an Agatston score of 0. Patient has a history of crack cocaine abuse for 35 years but has been abstinent since 2018. He currently is on Suboxone for opioid use disorder. He smokes 8 to 9 cigarettes daily and denies the use of alcohol. With previous procedures he has had no complications of anesthesia or postoperative nausea or vomiting. Patient's activity level is limited and I would estimate his functional capacity is being less than 4 METS. Please see below regarding status of active medical conditions and assessment and plan regarding details of preoperative medical risk stratification. Past Medical History: Diagnosis Date Asthma COPD (chronic obstructive pulmonary disease) (HCC) Emphysema of lung (HCC) Essential hypertension 01/10/2017 Hyperlipidemia Polysubstance abuse (HCC) PUD (peptic ulcer disease) Thoracic aortic aneurysm (HCC) TIA (transient ischemic attack) Tobacco Abuse Past Medical History Pertinent Negatives: Diagnosis Date Noted Diabetes mellitus (HCC) 01/10/2017 Renal insufficiency 01/10/2017 Past Surgical History: Procedure Laterality Date EYE SURGERY GASTRIC ULCER PERFORATION REPAIR Social History Tobacco Use Smoking status: Current Every Day Smoker Packs/day: 0.25 Years: 39.00 Pack years: 9.75 Types: Cigarettes Smokeless tobacco: Never Used Tobacco comment: Trying to cut back, 8 cigs per day Substance Use Topics Alcohol use: Not Currently Comment: 1 beer per month Family History Problem Relation Age of Onset Diabetes Mother Diabetes Father Throat cancer Sister Heart attack Maternal Grandmother Prior to Admission medications Medication Sig Taking? Dose Freq albuterol (PROVENTIL) 2.5 mg /3 mL (0.083 %) nebulizer solution Take 3 mL (2.5 mg total) by nebulization every 4 (four) hours as needed for wheezing Dx: J44.0 . Yes 2.5 mg, Nebulization, Every 4 hours PRN, Dx: J44.0 albuterol 90 mcg/actuation inhaler Inhale 2 (two) puffs every 4 (four) hours as needed for wheezing Reasons: chronic obstructive pulmonary disease. Yes 2 puffs, Inhalation, Every 4 hours PRN Banophen 25 mg capsule Take 25 mg by mouth daily as needed for allergies . Yes 25 mg, Oral, Daily PRN budesonide-formoteroL (SYMBICORT) 160-4.5 mcg/actuation inhaler Inhale 2 (two) puffs 2 (two) times a day . Yes 2 puffs, Inhalation, 2 times daily buprenorphine-nalOXone (SUBOXONE) 8-[address] 1 tablet under the tongue every morning . Yes 1 tablet, Sublingual, Every morning cyclobenzaprine (FLEXERIL) 5 MG tablet Take 10 mg by mouth 2 (two) times a day as needed for muscle spasms . Yes 10 mg, Oral, 2 times daily PRN guaiFENesin (Mucinex) 1,200 mg Ta12 Take 1,200 mg by mouth every morning . Yes 1,200 mg, Oral, Every morning hydroCHLOROthiazide (HYDRODIURIL) 12.5 MG tablet Take 12.5 mg by mouth every morning . Yes 12.5 mg, Oral, Every morning loratadine (CLARITIN) 10 mg tablet Take 10 mg by mouth every morning . Yes 10 mg, Oral, Every morning montelukast (SINGULAIR) 10 mg tablet Take 1 (one) tablet (10 mg total) by mouth nightly . Yes 10 mg, Oral, Nightly nicotine (NICODERM CQ) 21 mg/[address] 1 patch on the skin daily as needed . Yes 1 patch, Transdermal, Daily PRN nicotine polacrilex (NICORETTE) 4 MG gum Apply 4 mg to the mouth or throat as needed for smoking cessation . Yes 4 mg, Mouth/Throat, As needed tiotropium bromide (Spiriva Respimat) 2.5 mcg/actuation Mist Inhale 2 (two) puffs daily . Yes 2 sprays, Inhalation, Daily azithromycin (ZITHROMAX) 250 MG tablet Take 2 tabs today then 1 tablet daily until gone. . Take 2 tabs today then 1 tablet daily until gone. acetaminophen (TYLENOL) 500 MG tablet Take 500 mg by mouth every 8 (eight) hours as needed . 500 mg, Oral, Every 8 hours PRN Eliquis 2.5 mg Tab No dose, route, or frequency recorded. guaiFENesin (MUCINEX) 600 mg 12 hr tablet Take 1 (one) tablet (600 mg total) by mouth every 12 (twelve) hours . 600 mg, Oral, Every 12 hours HYDROcodone-acetaminophen (NORCO) 5-325 mg per tablet No dose, route, or frequency recorded. omeprazole (PRILOSEC) 40 MG capsule No dose, route, or frequency recorded. Allergies Allergen Reactions Tylenol [Acetaminophen] Urinary tract infection Codeine Itching Including all derivatives - is well tolerated when taking Benadryl prophylaxis Review of Systems Constitution: (negative) HENT: (negative) Eyes: (negative) Respiratory: - As above Cardiovascular: (negative) - Exercise capacity: Less than 4 METS Gastrointestinal: - As above Genitourinary: - As above Musculoskeletal: - As above Skin: (negative) Neurological: - As above Hematological: (negative) Physical Exam BP (!) 151/105 Pulse 97 Temp 98.6 F (37 C) (Oral) Resp 18 Ht 6' 1 Wt 70.6 kg (155 lb 10.3 oz) SpO2 93% BMI 20.53 kg/m Constitutional: Conversant, in no acute distress Eyes: No Scleral Icterus, no ptosis. Pupils equal and round. Ears/nose/mouth/throat: Nose and ears appear normal. Oropharynx clear. Neck: Trachea midline, no goiter Respiratory: Clear to auscultation, increased respiratory effort which patient states is his baseline Cardiovascular: Regular rate and rhythm. No peripheral edema. Pulses palpable at the ankle. Gastrointestinal: Abdomen soft, nontender, no masses noted. Genitourinary: No suprapubic tenderness. Musculoskeletal: No calf tenderness with palpation, no digital cyanosis or clubbing. Skin: No rashes, Normal turgor and temperature. Neurologic: No focal deficits noted. Psychiatric: Appropriate affect, Alert and Oriented x 3. Data Preprocedure Sleep Apnea Assessment - No Risk (0/3) Sleep Apnea in the patient's Active Problem List or Medical History: no 1. History of apparent airway obstruction during sleep: (1 point for this category) Do you snore frequently, or snore loud enough to be heard through a closed door?: no Do you awaken from sleep with a choking sensation or have periods during sleep when someone has observed you pausing between breaths?: no 2. Somnolence of the patient: (1 point for this category) Do you find yourself frequently sleepy despite adequate hours of sleep the night before?: no Do you fall asleep easily while: watching TV, reading, riding in or driving a car?: no 3. Predisposing physician characteristics: (1 point for this category, 2 points if the BMI ? 40) BMI (Calculated): 20.5 Recent Results (from the past 17920 hours) ECHOCARDIOGRAM COMPLETE 11/02/2019 (Final) Status: Normal Narrative Transthoracic Echocardiogram Patient: KAROLINA Vazquez [facility] Rec#: [id number] (Age): 1960(59y) Height: 187(cm)/73(in) Study Date: 11/02/2019 Weight: 63.5(kg)/140(lb Room#: 56 BSA: [id number] Type: Inpatient Loc: [facility] Sex: M Reading: Jeremiah Romero D.O. Referring: Lisa Howe Plow Mechanic: LATISHA DURAN History: Asthma. COPD. Hypertension. Diagnosis: ICD-10-PCS Syncope and collapse (R55) Syncope (780.2) CPT Code(s): ECHO COMPLETE W/ DOPPLER (48258) Study Quality The study quality is technically difficult. Summary: Patient identity verified and ID band on (pause and confirm). Current HP present on patient chart. Procedure explained and patient verified understanding. Conclusions: Normal LV chamber size and function, LVEF 55-60%. Normal RV chamber size and function. No significant valvular dysfunction. Findings Reason For Study: Syncope. Left Ventricle: The left ventricular chamber size is normal. The estimated ejection fraction is 55-60%. The diastolic filling pattern is consistent with impaired relaxation and normal LA pressure (Mild diastolic dysfunction). Mild concentric remodeling of the LV. Atypical septal motion, possibly due to a bundle branch block. Left Atrium: The left atrial chamber size is normal. Right Ventricle: The right ventricular cavity size is normal. The right ventricular global systolic function is normal. Right Atrium: The right atrial cavity size is normal. Aortic Valve: The aortic valve is not well visualized. There is no hemodynamically significant stenosis. There is no evidence of aortic regurgitation. Mitral Valve: The mitral valve leaflets appear normal. There is no evidence of mitral stenosis. There is no evidence of mitral regurgitation. Tricuspid Valve: The tricuspid valve leaflets are normal. There is no evidence of tricuspid valve regurgitation. Pulmonary artery pressure could not be estimated. Pulmonic Valve: The pulmonic valve appears grossly normal in structure and function. There is no pulmonic stenosis. There is no evidence of pulmonic regurgitation. Pericardium: The pericardium appears normal. Aorta: The aorta appears normal. Pulmonary Artery: The main pulmonary artery appears normal. Venous: The inferior vena cava appears normal. HR 73 BP 146/85 Measurements Chambers MM Name Value Normal Range AV cusp separation (MM) 2.1 cm none Chambers 2D Name Value Normal Range IVSd (2D) 1.06 cm none LVPWd (2D) 1.48 cm none IVS:LVPW ratio (2D) 0.72 ratio none LVIDd (2D) 3.85 cm none LVIDs (2D) 2.91 cm none LVIDd (2D) index 2.07 cm/m2 none LVIDs (2D) index 1.56 cm/m2 none LV FS (2D) 24.42 % none LV FS (Teichholz) (2D) 24.4 % none LV FS (cube) (2D) 24.4 % none EF Teichholz (2D) 49.17 % none LA dimension (AP) 2D 2.9 cm none LA dimension (2D) index 1.56 cm/m2 none Volumes/Mass Name Value Normal Range LV EDV SP 4CH (MOD) 90.6 ml none LV ESV SP 4CH (MOD) 28.6 ml none EF SP 4CH (MOD) 68.43 % none LV EDV SP 2CH (MOD) 59.8 ml none LV ESV SP 2CH (MOD) 22.2 ml none EF SP 2CH (MOD) 62.88 % none LV EDV BP 75.3 ml none LV ESV BP 25.1 ml none BP EF (MOD) 66.67 % none LV EDV BP index 40.47 ml/m2 none LV ESV BP index 13.49 ml/m2 none LV mass (2D) 170.2 g none LV mass (2D) index 91.48 g/m2 none Diastolic/Systolic Function Name Value Normal Range MV E-wave Vmax 0.63 m/sec none MV deceleration time 218 msec none MV A-wave Vmax 0.72 m/sec none MV E:A ratio 0.87 ratio (1.1 - 1.5) LV E:e' septal ratio 6.7 ratio none LV E:e' lateral ratio 7.3 ratio none Aortic Valve Name Value Normal Range AV Vmax 1.03 m/sec (1 - 1.7) AV peak gradient 4.24 mmHg (Less Than 36) LVOT diameter 2.1 cm (1.7 - 2.5) LVOT Vmax 0.91 m/sec (0.7 - 1.1) LVOT peak gradient 3 mmHg none DOI (Vmax) 0.88 ratio none SWETA (continuity Vmax) 3.05 cm2 none SWETA (continuity Vmax) index 1.64 cm2/m2 none Pulmonic Valve/Qp:Qs Name Value Normal Range PV Vmax 0.9 m/sec (0.6 - 0.9) PV peak gradient 3.23 mmHg none PV acceleration time 109 msec none Electronically Signed at 11/02/2019 16:05:30 by: Jeremiah Romero D.O. Recent Results (from the past 30029 hours) XR CHEST PA/AP 05/28/2020 (Final) Status: Normal Narrative EXAMINATION: ONE XRAY VIEW OF THE CHEST 05/28/2020 1:45 pm COMPARISON: 04/16/2020 HISTORY: ORDERING SYSTEM PROVIDED HISTORY: SOB, h/o COPD, PNA, recent COVID (dx 04/23/20, then resolved); TECHNOLOGIST PROVIDED HISTORY: Illness/Other Acuity: Unknown Reason for Exam: SOB, h/o COPD, PNA, recent COVID (dx 04/23/20, then resolved) Type of Encounter: Initial Additional signs and symptoms: unk FINDINGS: Cardiomediastinal silhouette is stable. Improved bilateral airspace opacities. No pleural effusion or pneumothorax. No gross bony abnormality. Impression Improved bilateral airspace opacities. Workstation ID: [id number] documented in this encounter Assessment and Plan 1. Preop examination Medically acceptable risk for elective major procedure with risk factors as outlined below and pending review of the following ordered tests: Letter of pulmonary suitability and completion of pulmonary work-up from patient's 06/14/2020 visit with nurse practitioner Rosalia. 2. Hydrocele, unspecified hydrocele type Primary management per surgical team. Patient provided instructions on preoperative management of medications including withholding Aspirin, NSAIDS, and specific Herbal Supplements. 3. Preop cardiovascular exam Patient denies any active cardiac conditions and has a revised cardiac risk index of 1. Patient denied any current cardiac symptoms and has less than 4 METS of functional capacity and is at acceptable cardiac risk for elective surgery based on 2014 ACC/AHA guidelines. TTE performed 11/02/2019 revealed normal left ventricular chamber size and function with an ejection fraction of 55 to 60% EKG performed 05/28/2020 read independently today reveals sinus tachycardia biatrial enlargement nonspecific T wave abnormality DVT prophylaxis deferred to surgical service. Recommend utilization of 2016 ACCP guidelines. Apfel score is 1. (Score/Risk of PONV = 0/10%, 1/21%, 2/39%, 3/61%, 4/79%). This score has been externally validated. 4. Chronic obstructive pulmonary disease, unspecified COPD type (HCC) Patient with recent signs and symptoms of COPD exacerbation and decompensated pulmonary function. Will require pulmonary clearance for further risk stratification and optimization prior to elective surgery. 5. Multifocal pneumonia patient's nurse practitioner ordered a CT scan 06/14/2020 as her most recent chest x-ray 05/28/2020 revealed improved by lateral airspace opacities from his pneumonia which he was hospitalized for April 2020 6. History of acute respiratory failure patient has had multiple hospitalizations including March 2020, April 2020 and emergency room visit 05/28/2020 for COPD exacerbations. Patient saw the nurse practitioner Daniela at the pulmonology office 06/14/2020 and PFTs and a CT scan were ordered. Recommend patient complete this work-up and we will request a letter of pulmonary suitability for the planned procedure from his electrical tester. 7. COVID-19 virus infection patient developed COVID-19 after he was discharged to an ECF following his hospitalization in April 2020 8. History of sepsis patient was hospitalized with sepsis and acute respiratory failure April 2020 9. Essential hypertension BP Readings from Last 1 Encounters: 06/19/20 (!) 151/105 Blood pressure well controlled and optimized for surgery. Recommend continuation of current blood pressure medications in the perioperative period. 10. Allergic state, subsequent encounter patient advised to continue Banophen and Singulair throughout the perioperative period. 11. Gastroesophageal reflux disease without esophagitis Well controlled with PPI/[id number] which should be dosed perioperatively on usual home schedule. 12. Primary osteoarthritis of right hip patient advised to hold NSAIDs in anticipation of planned procedure 13. Thoracic aortic aneurysm, without rupture (HCC) I do not see recent imaging study. CT scan which was ordered 06/14/2020 by nurse practitioner Rosalia for evaluation 14. TIA (transient ischemic attack) this occurred greater than 4 years ago 15. History of thoracoabdominal aortic aneurysm (TAAA) patient has not had a recent imaging study however a CT scan has been ordered by his nurse practitioner at the pulmonology office. Recommend perform this prior to planned procedure 16. Tobacco Abuse Patient currently not manifesting any signs or symptoms of decompensated pulmonary disease and has been counseled on smoking cessation. Patient was advised of potential perioperative adverse effects associated with smoking such as increased risk for post-operative pulmonary complications, poor wound healing, and increased risk for infections. Recommend aggressive pulmonary toilet and lung expansion modalities including deep breathing and IS after surgery and perioperative nebulizers as needed. 17. Opioid use disorder (HCC) patient advised to hold Suboxone 72 hours prior to planned procedure 18. Crack Cocaine Use patient has a history of 35-year crack cocaine use but has been in recovery since 2018 Chief Complaint Patient presents with Pre-operative Medical Risk Stratification History of Present Illness Wolf Turcios is a 60 y.o. male who presents for preoperative medical risk stratification consult at the request of Leonardo Perla MD prior to HYDROCELECTOMY on 06/26/20. This patient has been diagnosed with hydrocele, unspecified hydrocele type (N43.3) and the above procedure has been recommended and scheduled for 06/26/2020. Patient surgery has been rescheduled 3 times due to illness. Patient was hospitalized 03/28/2020 with acute respiratory failure with hypoxia and COPD exacerbation. He was again hospitalized 04/13 through 04/22/2020 with acute respiratory failure sepsis and and pneumonia and was discharged to an [facility] where he developed COVID-19 in April 2020. Patient was seen in the emergency room 05/28/2020 with a COPD exacerbation and treated with antibiotics. Patient saw his pulmonary nurse practitioner Daniela 06/14/2020. At that time chest x-ray from 05/28/2020 which showed improved bilateral airspace opacities therefore CT scan was ordered and pulmonary function tests ordered. Patient COPD was noted to be severe. Patient recommended to complete this work-up and we will request a letter of pulmonary suitability for the planned procedure from her his electrical tester. Patient states just last week he contacted his family physician due to coughing up green phlegm and was given a Zithromax prescription to take as needed as backup. Patient states he took 1 dose and was not planning on taking further medication. Patient believes his current breathing is at his baseline. Patient experienced a TIA 4 years ago. He denies any history of heart problems. 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 He denies a diagnosis of or symptoms concerning for sleep apnea. He denies a diagnosis of liver or kidney disease and is not diabetic. He has high blood pressure which is elevated today. He has GERD. He has osteoarthritis of his right hip and is considering hip replacement surgery. He has chronic low back pain. He has a thoracic abdominal aortic aneurysm. The CT scan that was ordered by his electrical tester would be able to evaluate that as I do not see a recent imaging study. Patient did experience a cardiac echo 11/02/2019 which revealed mild diastolic dysfunction with an ejection fraction of 55 to 60%. He had a coronary calcium CT scan 12/14/2017 with an Agatston score of 0. Patient has a history of crack cocaine abuse for 35 years but has been abstinent since 2018. He currently is on Suboxone for opioid use disorder. He smokes 8 to 9 cigarettes daily and denies the use of alcohol. With previous procedures he has had no complications of anesthesia or postoperative nausea or vomiting. Patient's activity level is limited and I would estimate his functional capacity is being less than 4 METS. Please see below regarding status of active medical conditions and assessment and plan regarding details of preoperative medical risk stratification. Past Medical History: Diagnosis Date Asthma COPD (chronic obstructive pulmonary disease) ([facility]) Emphysema of lung ([facility]) Essential hypertension 01/10/2017 Hyperlipidemia Polysubstance abuse ([facility]) PUD (peptic ulcer disease) Thoracic aortic aneurysm ([facility]) TIA (transient ischemic attack) Tobacco Abuse Past Medical History Pertinent Negatives: Diagnosis Date Noted Diabetes mellitus ([facility]) 01/10/2017 Renal insufficiency 01/10/2017 Past Surgical History: Procedure Laterality Date EYE SURGERY GASTRIC ULCER PERFORATION REPAIR Social History Tobacco Use Smoking status: Current Every Day Smoker Packs/day: 0.25 Years: 39.00 Pack years: 9.75 Types: Cigarettes Smokeless tobacco: Never Used Tobacco comment: Trying to cut back, 8 cigs per day Substance Use Topics Alcohol use: Not Currently Comment: 1 beer per month Family History Problem Relation Age of Onset Diabetes Mother Diabetes Father Throat cancer Sister Heart attack Maternal Grandmother Prior to Admission medications Medication Sig Taking? Dose Freq albuterol (PROVENTIL) 2.5 mg /3 mL (0.083 %) nebulizer solution Take 3 mL (2.5 mg total) by nebulization every 4 (four) hours as needed for wheezing Dx: J44.0 . Yes 2.5 mg, Nebulization, Every 4 hours PRN, Dx: J44.0 albuterol 90 mcg/actuation inhaler Inhale 2 (two) puffs every 4 (four) hours as needed for wheezing Reasons: chronic obstructive pulmonary disease. Yes 2 puffs, Inhalation, Every 4 hours PRN Banophen 25 mg capsule Take 25 mg by mouth daily as needed for allergies . Yes 25 mg, Oral, Daily PRN budesonide-formoteroL (SYMBICORT) 160-4.5 mcg/actuation inhaler Inhale 2 (two) puffs 2 (two) times a day . Yes 2 puffs, Inhalation, 2 times daily buprenorphine-nalOXone (SUBOXONE) 8-[address] 1 tablet under the tongue every morning . Yes 1 tablet, Sublingual, Every morning cyclobenzaprine (FLEXERIL) 5 MG tablet Take 10 mg by mouth 2 (two) times a day as needed for muscle spasms . Yes 10 mg, Oral, 2 times daily PRN guaiFENesin (Mucinex) 1,200 mg Ta12 Take 1,200 mg by mouth every morning . Yes 1,200 mg, Oral, Every morning hydroCHLOROthiazide (HYDRODIURIL) 12.5 MG tablet Take 12.5 mg by mouth every morning . Yes 12.5 mg, Oral, Every morning loratadine (CLARITIN) 10 mg tablet Take 10 mg by mouth every morning . Yes 10 mg, Oral, Every morning montelukast (SINGULAIR) 10 mg tablet Take 1 (one) tablet (10 mg total) by mouth nightly . Yes 10 mg, Oral, Nightly nicotine (NICODERM CQ) 21 mg/[address] 1 patch on the skin daily as needed . Yes 1 patch, Transdermal, Daily PRN nicotine polacrilex (NICORETTE) 4 MG gum Apply 4 mg to the mouth or throat as needed for smoking cessation . Yes 4 mg, Mouth/Throat, As needed tiotropium bromide (Spiriva Respimat) 2.5 mcg/actuation Mist Inhale 2 (two) puffs daily . Yes 2 sprays, Inhalation, Daily azithromycin (ZITHROMAX) 250 MG tablet Take 2 tabs today then 1 tablet daily until gone. . Take 2 tabs today then 1 tablet daily until gone. acetaminophen (TYLENOL) 500 MG tablet Take 500 mg by mouth every 8 (eight) hours as needed . 500 mg, Oral, Every 8 hours PRN Eliquis 2.5 mg Tab No dose, route, or frequency recorded. guaiFENesin (MUCINEX) 600 mg 12 hr tablet Take 1 (one) tablet (600 mg total) by mouth every 12 (twelve) hours . 600 mg, Oral, Every 12 hours HYDROcodone-acetaminophen (NORCO) 5-325 mg per tablet No dose, route, or frequency recorded. omeprazole (PRILOSEC) 40 MG capsule No dose, route, or frequency recorded. Allergies Allergen Reactions Tylenol [Acetaminophen] Urinary tract infection Codeine Itching Including all derivatives - is well tolerated when taking Benadryl prophylaxis Review of Systems Constitution: (negative) HENT: (negative) Eyes: (negative) Respiratory: - As above Cardiovascular: (negative) - Exercise capacity: Less than 4 METS Gastrointestinal: - As above Genitourinary: - As above Musculoskeletal: - As above Skin: (negative) Neurological: - As above Hematological: (negative) Physical Exam BP (!) 151/105 Pulse 97 Temp 98.6 F (37 C) (Oral) Resp 18 Ht 6' 1 Wt 70.6 kg (155 lb 10.3 oz) SpO2 93% BMI 20.53 kg/m Constitutional: Conversant, in no acute distress Eyes: No Scleral Icterus, no ptosis. Pupils equal and round. Ears/nose/mouth/throat: Nose and ears appear normal. Oropharynx clear. Neck: Trachea midline, no goiter Respiratory: Clear to auscultation, increased respiratory effort which patient states is his baseline Cardiovascular: Regular rate and rhythm. No peripheral edema. Pulses palpable at the ankle. Gastrointestinal: Abdomen soft, nontender, no masses noted. Genitourinary: No suprapubic tenderness. Musculoskeletal: No calf tenderness with palpation, no digital cyanosis or clubbing. Skin: No rashes, Normal turgor and temperature. Neurologic: No focal deficits noted. Psychiatric: Appropriate affect, Alert and Oriented x 3. Data Preprocedure Sleep Apnea Assessment - No Risk (0/3) Sleep Apnea in the patient's Active Problem List or Medical History: no 1. History of apparent airway obstruction during sleep: (1 point for this category) Do you snore frequently, or snore loud enough to be heard through a closed door?: no Do you awaken from sleep with a choking sensation or have periods during sleep when someone has observed you pausing between breaths?: no 2. Somnolence of the patient: (1 point for this category) Do you find yourself frequently sleepy despite adequate hours of sleep the night before?: no Do you fall asleep easily while: watching TV, reading, riding in or driving a car?: no 3. Predisposing physician characteristics: (1 point for this category, 2 points if the BMI ? 40) BMI (Calculated): 20.5 Recent Results (from the past 28617 hours) ECHOCARDIOGRAM COMPLETE 11/02/2019 (Final) Status: Normal Narrative Transthoracic Echocardiogram Patient: KAROLINA Vazquez [facility] Rec#: [id number] (Age): 1960(59y) Height: 187(cm)/73(in) Study Date: 11/02/2019 Weight: 63.5(kg)/140(lb Room#: 56 BSA: [id number] Type: Inpatient Loc: [facility] Sex: M Reading: Jeremiah Romero D.O. Referring: Lisa Howe Plow Mechanic: LATISHA DURAN History: Asthma. COPD. Hypertension. Diagnosis: ICD-10-PCS Syncope and collapse (R55) Syncope (780.2) CPT Code(s): ECHO COMPLETE W/ DOPPLER (14361) Study Quality The study quality is technically difficult. Summary: Patient identity verified and ID band on (pause and confirm). Current HP present on patient chart. Procedure explained and patient verified understanding. Conclusions: Normal LV chamber size and function, LVEF 55-60%. Normal RV chamber size and function. No significant valvular dysfunction. Findings Reason For Study: Syncope. Left Ventricle: The left ventricular chamber size is normal. The estimated ejection fraction is 55-60%. The diastolic filling pattern is consistent with impaired relaxation and normal LA pressure (Mild diastolic dysfunction). Mild concentric remodeling of the LV. Atypical septal motion, possibly due to a bundle branch block. Left Atrium: The left atrial chamber size is normal. Right Ventricle: The right ventricular cavity size is normal. The right ventricular global systolic function is normal. Right Atrium: The right atrial cavity size is normal. Aortic Valve: The aortic valve is not well visualized. There is no hemodynamically significant stenosis. There is no evidence of aortic regurgitation. Mitral Valve: The mitral valve leaflets appear normal. There is no evidence of mitral stenosis. There is no evidence of mitral regurgitation. Tricuspid Valve: The tricuspid valve leaflets are normal. There is no evidence of tricuspid valve regurgitation. Pulmonary artery pressure could not be estimated. Pulmonic Valve: The pulmonic valve appears grossly normal in structure and function. There is no pulmonic stenosis. There is no evidence of pulmonic regurgitation. Pericardium: The pericardium appears normal. Aorta: The aorta appears normal. Pulmonary Artery: The main pulmonary artery appears normal. Venous: The inferior vena cava appears normal. HR 73 BP 146/85 Measurements Chambers MM Name Value Normal Range AV cusp separation (MM) 2.1 cm none Chambers 2D Name Value Normal Range IVSd (2D) 1.06 cm none LVPWd (2D) 1.48 cm none IVS:LVPW ratio (2D) 0.72 ratio none LVIDd (2D) 3.85 cm none LVIDs (2D) 2.91 cm none LVIDd (2D) index 2.07 cm/m2 none LVIDs (2D) index 1.56 cm/m2 none LV FS (2D) 24.42 % none LV FS (Teichholz) (2D) 24.4 % none LV FS (cube) (2D) 24.4 % none EF Teichholz (2D) 49.17 % none LA dimension (AP) 2D 2.9 cm none LA dimension (2D) index 1.56 cm/m2 none Volumes/Mass Name Value Normal Range LV EDV SP 4CH (MOD) 90.6 ml none LV ESV SP 4CH (MOD) 28.6 ml none EF SP 4CH (MOD) 68.43 % none LV EDV SP 2CH (MOD) 59.8 ml none LV ESV SP 2CH (MOD) 22.2 ml none EF SP 2CH (MOD) 62.88 % none LV EDV BP 75.3 ml none LV ESV BP 25.1 ml none BP EF (MOD) 66.67 % none LV EDV BP index 40.47 ml/m2 none LV ESV BP index 13.49 ml/m2 none LV mass (2D) 170.2 g none LV mass (2D) index 91.48 g/m2 none Diastolic/Systolic Function Name Value Normal Range MV E-wave Vmax 0.63 m/sec none MV deceleration time 218 msec none MV A-wave Vmax 0.72 m/sec none MV E:A ratio 0.87 ratio (1.1 - 1.5) LV E:e' septal ratio 6.7 ratio none LV E:e' lateral ratio 7.3 ratio none Aortic Valve Name Value Normal Range AV Vmax 1.03 m/sec (1 - 1.7) AV peak gradient 4.24 mmHg (Less Than 36) LVOT diameter 2.1 cm (1.7 - 2.5) LVOT Vmax 0.91 m/sec (0.7 - 1.1) LVOT peak gradient 3 mmHg none DOI (Vmax) 0.88 ratio none SWETA (continuity Vmax) 3.05 cm2 none SWETA (continuity Vmax) index 1.64 cm2/m2 none Pulmonic Valve/Qp:Qs Name Value Normal Range PV Vmax 0.9 m/sec (0.6 - 0.9) PV peak gradient 3.23 mmHg none PV acceleration time 109 msec none Electronically Signed at 11/02/2019 16:05:30 by: Jeremiah Romero D.O. Recent Results (from the past 90147 hours) XR CHEST PA/AP 05/28/2020 (Final) Status: Normal Narrative EXAMINATION: ONE XRAY VIEW OF THE CHEST 05/28/2020 1:45 pm COMPARISON: 04/16/2020 HISTORY: ORDERING SYSTEM PROVIDED HISTORY: SOB, h/o COPD, PNA, recent COVID (dx 04/23/20, then resolved); TECHNOLOGIST PROVIDED HISTORY: Illness/Other Acuity: Unknown Reason for Exam: SOB, h/o COPD, PNA, recent COVID (dx 04/23/20, then resolved) Type of Encounter: Initial Additional signs and symptoms: unk FINDINGS: Cardiomediastinal silhouette is stable. Improved bilateral airspace opacities. No pleural effusion or pneumothorax. No gross bony abnormality. Impression Improved bilateral airspace opacities. Workstation ID: [id number] documented in this encounter [facility] HISTORY AND PHYSICAL Patient Name: Wolf Turcios : 1960 MR #: [id number] Admit Date: [id number] Physicians: Karma Mark CNP (Family); No ref. provider found (Referring) Wolf Turcios is a 60 y.o. male patient of Karma Mark CNP with history of COPD, asthma, HTN, thoracic AAA and substance abuse presented with dyspnea AECOPD Start prednisone, Azithromycin and pulm toilet with nebs/inhalers Continue mucinex and add Singulair back given possible mold exposure at home Initially required BiPAP in the ED but now down to room air and satting well Sepsis due to Aspiration PNA Recently was treated for PNA and has had COVID in the past Current imagine looks better but increased sputum production and recently vomiting with some choking following I will treat with Azithromycin currently for AECOPD and Unasyn for aspiration Reflex lactate pending as first was elevated at 3 Hydrate and send cultures Essential HTN Can continue home hydrochlorothiazide H/O substance abuse On suboxone which will be continued Tobacco abuse Trying to quit and using Nicotine gum Admitted From: Home Medication Reconciliation: Verified Code Status: Full Code Quality Measures DVT Prophylaxis: Lovenox Foy Catheter: None Disposition Outpatient Testing: None Chief Complaint Dyspnea History of Present Illness 60 yo WM presented to [facility] via EMS with a lot of dyspnea. The patient noted progressive worsening of his dyspnea over the past 24-48 hours. He has been having a worsened cough which has become more productive of sputum. The patient has been coughing enough that his chest hurts. Recently he was treated for a PNA, but then had a mix-up with his Nicorette gum leading to a bout of significant emesis. He choked some as well at that time. He has felt hot but is not sure if having fevers. He denies chills, nausea, bowel changes or other complaints at this time. He is now off BiPAP and feeling better. Past Medical History Past Medical History: Diagnosis Date Asthma COPD (chronic obstructive pulmonary disease) (HCC) Emphysema of lung (HCC) Essential hypertension 01/10/2017 Hyperlipidemia Polysubstance abuse (HCC) PUD (peptic ulcer disease) Thoracic aortic aneurysm (HCC) TIA (transient ischemic attack) Tobacco Abuse Past Surgical History Past Surgical History: Procedure Laterality Date EYE SURGERY GASTRIC ULCER PERFORATION REPAIR Family History Family History Problem Relation Age of Onset Diabetes Mother Diabetes Father Throat cancer Sister Heart attack Maternal Grandmother Social History Social History Tobacco Use Smoking Status Current Every Day Smoker Packs/day: 0.25 Years: 39.00 Pack years: 9.75 Types: Cigarettes Smokeless Tobacco Never Used Tobacco Comment Trying to cut back, 8 cigs per day Social History Substance and Sexual Activity Alcohol Use Not Currently Comment: 1 beer per month Social History Substance and Sexual Activity Drug Use Not Currently Types: Crack cocaine Comment: 1.5 years clean Allergy Information I have reviewed the patient's allergies. Tylenol [acetaminophen] and Codeine Home Medications Home medications were reviewed. Review Of Systems All systems have been reviewed and are negative except as noted in HPI or below Physical Examination BP (!) 133/95 Pulse 86 Temp 98.7 F (37.1 C) (Oral) Resp 18 SpO2 96% General Appearance: alert, well appearing, and in no acute distress HEENT: Head- normocephalic; Eyes- PERRLA, EOMI; Ears- external auditory canals clear, hearing intact; Nose- no nasal discharge; Throat- oropharynx normal Cardiovascular: regular rate and rhythm; normal S1, S2; no murmurs, rubs, clicks or gallops; no peripheral edema Respiratory: lungs very shallow with end expiratory wheezes noted. Some mild coarseness in RLL Abdomen: soft, non-tender, non-distended; positive bowel sounds Neurological: alert, oriented x 3, normal speech; no focal findings or movement disorder noted Musculoskeletal: no significant deformity or tenderness to palpation Skin: normal coloration, texture and turgor; no lesions or eruptions Psych: normal mood and affect Laboratory and Additional Data Reviewed Laboratory 07/17/20 8:13 PM Microbiology 07/17/20 8:13 PM Radiology 07/17/20 8:13 PM Medications 07/17/20 8:13 PM Transcriptions 07/17/20 8:13 PM Expected Discharge/Time Spent Based on current clinical information, the expected discharge date is: day after tomorrow (07/19/2020) documented in this encounter [facility] HISTORY AND PHYSICAL Patient Name: Wolf Turcios : 1960 MR #: [id number] Admit Date: [id number] Physicians: Karma Mark CNP (Family); No ref. provider found (Referring) Wolf Turcios is a 60 y.o. male patient of Karma Mark CNP with history of COPD, asthma, HTN, thoracic AAA, TIA, and substance abuse who presented with dyspnea and leg swelling. Acute COPD Exacerbation Admission 07/17/20 for the same Also diagnosed with sepsis due to aspiration pneumonia at that time and treated with Unasyn while IP Discharged home 07/19/20 with prednisone, Augmentin, azithromycin VBG on admission today with pH 7.44, pCO2 39.3, lactic acid 3.5 Reflex lactic acid improved to 2.1 CXR on admission today with mild right basilar atelectasis CTPA on admission today with decreased consolidation in the RLL compared to last CT on 07/17, right middle lobe opacities resolved compared to last, severe emphysema noted Patient comfortable on room air with O2 sats in the 95-99% range Continued home prednisone, Mucinex, Singulair, Symbicort Patient had not completed home course of Augmentin, remaining doses ordered Started scheduled Duo-Nebs and incentive spirometry Patient not requiring supplemental oxygen at this time Bilateral Lower Extremity Edema New onset since last admission Patient also reports swelling of tongue which was not noted on exam Patient believes swelling is due to reaction to antibiotics CTPA on admission with no evidence of pulmonary embolism Venous duplex US of bilateral LEs preliminary read negative for thrombosis Echocardiogram 10/2019 with EF of 55-60% and mild diastolic dysfunction Likely dependent edema due to inactivity Low concern for medication reaction due to patent airway, no tongue or throat swelling noted on exam, no rash or skin lesions Musculoskeletal Pain S/p mechanical fall one week ago onto right hip XR right hip/pelvis negative for acute fracture/dislocation, moderate to severe osteoarthritis with joint space narrowing noted Patient comfortable at rest, pain occurs with ambulation Ibuprofen PRN ordered for pain Hyperglycemia Blood glucose 190 on admission No history of diabetes per patient Likely due to current steroid use Globus sensation Present on last admission 07/17-07/19 Patient reports feeling of tongue swelling as well but denies difficulty breathing or swallowing No swelling noted on exam Follow up with outpatient EGD as recommended at last discharge Essential HTN Continue home hydrochlorothiazide Substance abuse Tobacco use Continue home suboxone Ordered nicotine gum Admitted From: ED Medication Reconciliation: Verified Code Status: Full Code Quality Measures DVT Prophylaxis: Lovenox Foy Catheter: Absent Disposition Outpatient Testing: EGD, PFTs Chief Complaint Shortness of breath, leg swelling History of Present Illness 60-year-old male presents with worsening shortness of breath and new onset leg swelling for two days. He was admitted to this hospital for a COPD exacerbation with sepsis due to aspiration pneumonia from 07/27/20 to 02/11/21. He states that he felt well after discharge but started to feel short of breath again two days ago. He denies chest pain except when coughing. He reports sputum production with globus sensation in his throat. He noticed bilateral leg swelling with intermittent calf cramping two days ago. He reports numbness and tingling in his left foot that is present at baseline due to sciatica. He also has pain in his right hip from a mechanical fall approximately one week ago. Pain in his hip and legs is worse with movement and improved with rest. Shortness of breath is worse with exertion and improved with rest. Past Medical History Past Medical History: Diagnosis Date Asthma COPD (chronic obstructive pulmonary disease) ([facility]) Emphysema of lung ([facility]) Essential hypertension 01/10/2017 Hyperlipidemia Polysubstance abuse ([facility]) PUD (peptic ulcer disease) Thoracic aortic aneurysm ([facility]) TIA (transient ischemic attack) Tobacco Abuse Past Surgical History Past Surgical History: Procedure Laterality Date EYE SURGERY GASTRIC ULCER PERFORATION REPAIR Family History Family History Problem Relation Age of Onset Diabetes Mother Diabetes Father Throat cancer Sister Heart attack Maternal Grandmother Social History Social History Tobacco Use Smoking Status Current Every Day Smoker Packs/day: 0.25 Years: 39.00 Pack years: 9.75 Types: Cigarettes Smokeless Tobacco Never Used Tobacco Comment Trying to cut back, 8 cigs per day Social History Substance and Sexual Activity Alcohol Use Not Currently Comment: 1 beer per month Social History Substance and Sexual Activity Drug Use Not Currently Types: Crack cocaine Comment: 1.5 years clean Allergy Information I have reviewed the patient's allergies. Tylenol [acetaminophen] and Codeine Home Medications Home medications were reviewed. Review Of Systems All systems have been reviewed and are negative except as noted in HPI or below Constitutional: Denies fever, chills, weight loss CV: Reports chest pain. Denies palpitations Respiratory: Reports shortness of breath, cough. Denies wheezing GI: Denies abdominal pain, nausea, vomiting, diarrhea, constipation : Denies dysuria, frequent urination MSK: Reports right hip pain. Denies restricted movement Integumentary: Reports LE edema. Denies rashes, lesions, pruritus Neurological: Reports dizziness, numbness/tingling in left foot Psychiatric: Denies depression, anxiety, sleep disturbance Hematological: Denies abnormal bleeding or bruising Physical Examination BP (!) 148/94 Pulse 92 Temp 97.6 F (36.4 C) (Oral) Resp (!) 24 SpO2 97% General Appearance: alert, well appearing, and in no acute distress HEENT: Head- normocephalic; Eyes- PERRLA, EOMI; Ears- hearing intact; Nose- no nasal discharge; Throat- oropharynx normal with no edema Cardiovascular: regular rate and rhythm; normal S1, S2; no murmurs, rubs, clicks or gallops Respiratory: lungs diminished throughout with scattered wheezes and rhonchi, right worse than left Abdomen: soft, non-tender, non-distended; positive bowel sounds Neurological: alert, oriented x 3, normal speech; no focal findings or movement disorder noted Musculoskeletal: Tenderness to palpation over right hip, normal ROM in all extremities Skin: bilateral LE +1 pitting edema; no lesions or eruptions Psych: normal mood and affect Laboratory and Additional Data Reviewed Laboratory 07/25/20 2:54 PM Radiology 07/25/20 2:54 PM Cardiology 07/25/20 2:54 PM Medications 07/25/20 2:54 PM Expected Discharge/Time Spent Based on current clinical information, the expected discharge date is: tomorrow (07/26/2020) Associated attestation - Zheng Arredondo MD - 07/25/2020 3:06 PM EST I have evaluated this patient independently of Christina Arzate PA-C, and I reviewed pertinent documentation, laboratory and radiology results. I agree with the assessment and plan as documented, with the following additions: He was in no acute distress. He was not on oxygen. He had poor air entry throughout but no wheezes or crackles. He had trace nonpitting edema of both ankles that has decreased since he's been in the ER. COPD exacerbation Finish Augmentin and prednisone as previously presribed He's not requiring oxygen Edema Nonpitting and likely dependent NT-proBNP normal Previous TTE with mild diastolic dysfunction but doubt this is the cause Suspect lack of ambulation and prednisone could also be contributing No further workup here Follow up with PCpdocumented in this encounter [facility] HISTORY AND PHYSICAL Patient Name: Wolf Turcios : 1960 MR #: [id number] Admit Date: [id number] Physicians: Karma Mark CNP (Family); No ref. provider found (Referring) Wolf Turcios is a 60 y.o. male patient of Karma Mark CNP with history of COPD, opiate dependence, smoking presented with fevers, shortness of breath, cough. Acute respiratory failure: Tachypnea, dyspnea, hypoxia on presentation. Improving with supplemental oxygen. This is the third hospitalization for respiratory issues in the last 4 weeks. Of note, patient started on intermittent use of supplemental oxygen 2 weeks ago (2 L at home). Likely secondary to pneumonia. Patient tested for COVID-19. Will schedule antibiotics, breathing treatments. If symptoms not improving, we will get CT scan of chest and consult pulmonary team. Monitor closely in intermediate unit. Sepsis: Tachycardia, fever, tachypnea; associated with leukocytosis. In setting of pneumonia. Normotensive on admission; lactate level wnl. Pancultured. Started on HAP regimen (cefepime, clindamycin). IV rehydration. Monitor closely in intermediate unit. Pneumonia: Productive cough, dyspnea, subjective fevers/chills. CXR showing left perihilar and lung base interstitial infiltrates. Febrile, with leukocytosis. PNA panel ordered. Will start HAP regimen (vancomycin, cefepime). Supplemental oxygen and breathing treatments as needed. COPD: Restart home regimen. Breathing treatments as needed. Opiate dependence: Restart home dose of Suboxone. Smoking: Strongly recommend to quit. Nicotine patch when patient. Admitted From: Home Medication Reconciliation: Verified Code Status: Full Code Quality Measures DVT Prophylaxis: Lovenox Foy Catheter: None Chief Complaint fevers, shortness of breath History of Present Illness Patient states that for the last 3 days he has had productive cough as well as shortness of breath with exertion. In the last 2 days he has noticed fevers, chills, generalized malaise. Patient was a started on supplemental oxygen (2 L) about 2 weeks ago; to be used only as needed. Patient states that his symptoms have not improved with oxygen or with breathing treatments. Patient decided to come to ED for evaluation. Patient denies any chest pain, emesis, diarrhea, urinary symptoms, gross neurological deficits. Past Medical History Past Medical History: Diagnosis Date Asthma COPD (chronic obstructive pulmonary disease) (HCC) Emphysema of lung (HCC) Essential hypertension 01/10/2017 Hyperlipidemia Polysubstance abuse (HCC) PUD (peptic ulcer disease) Thoracic aortic aneurysm (HCC) TIA (transient ischemic attack) Tobacco Abuse Past Surgical History Past Surgical History: Procedure Laterality Date EYE SURGERY GASTRIC ULCER PERFORATION REPAIR Family History Family History Problem Relation Age of Onset Diabetes Mother Diabetes Father Throat cancer Sister Heart attack Maternal Grandmother Social History Social History Tobacco Use Smoking Status Former Smoker Packs/day: 0.25 Years: 39.00 Pack years: 9.75 Types: Cigarettes Smokeless Tobacco Never Used Tobacco Comment Trying to cut back, 8 cigs per day Social History Substance and Sexual Activity Alcohol Use Not Currently Comment: 1 beer per month Social History Substance and Sexual Activity Drug Use Not Currently Types: Crack cocaine Comment: 1.5 years clean Allergy Information I have reviewed the patient's allergies. Tylenol [acetaminophen] and Codeine Home Medications Home medications were reviewed. Review Of Systems All systems have been reviewed and are negative except as noted in HPI or below Eyes: Denies vision changes ENT: Denies hearing loss, nasal congestion, sore throat Respiratory: Denies shortness of breath, cough, wheezing GI: Denies abdominal pain, nausea, vomiting, diarrhea, constipation : Denies dysuria, frequent urination MSK: Denies joint pain or swelling, restricted motion Integumentary: Denies skin changes, pruritis Neurological: Denies dizziness, headache, numbness or tingling Psychiatric: Denies depression, anxiety, sleep disturbance Endocrine: Denies heat or cold intolerance, excessive thirst Hematological: Denies abnormal bleeding or bruising Allergy/Immunological: Denies hives, swelling of lips or tongue Physical Examination BP 106/76 Pulse 97 Temp (!) 100.8 F (38.2 C) (Oral) Resp (!) 20 Ht 6' 2 Wt 68 kg (150 lb) SpO2 96% BMI 19.26 kg/m General Appearance: alert, and in no acute distress HEENT: Head- normocephalic; Eyes- PERRLA, EOMI; Ears- external auditory canals clear, hearing intact; Nose- no nasal discharge; Throat- oropharynx normal Cardiovascular: regular rate and rhythm; normal S1, S2; no murmurs, rubs, clicks or gallops Respiratory: No wheezes, rales or rhonchi Abdomen: soft, non-tender, non-distended; positive bowel sounds Neurological: alert, oriented x 3, normal speech; no focal findings or movement disorder noted Musculoskeletal: no significant deformity Skin: no lesions or eruptions Psych: normal mood and affect Laboratory and Additional Data Reviewed Laboratory 08/09/20 3:34 AM Microbiology 08/09/20 3:34 AM Radiology 08/09/20 3:34 AM Cardiology 08/09/20 3:34 AM Medications 08/09/20 3:34 AM Transcriptions 08/09/20 3:34 AM Expected Discharge/Time Spent Based on current clinical information, the expected discharge date is: day after tomorrow (08/11/2020) documented in this encounter Assessment and Plan 1. Preop examination Medically acceptable risk for elective major procedure with risk factors as outlined below and pending review of the following ordered tests: Letter of pulmonary suitability and completion of pulmonary work-up from patient's 06/14/2020 visit with nurse practitioner Rosalia. 2. Hydrocele, unspecified hydrocele type Primary management per surgical team. Patient provided instructions on preoperative management of medications including withholding Aspirin, NSAIDS, and specific Herbal Supplements. 3. Preop cardiovascular exam Patient denies any active cardiac conditions and has a revised cardiac risk index of 1. Patient denied any current cardiac symptoms and has less than 4 METS of functional capacity and is at acceptable cardiac risk for elective surgery based on 2014 ACC/AHA guidelines. TTE performed 11/02/2019 revealed normal left ventricular chamber size and function with an ejection fraction of 55 to 60% EKG performed 05/28/2020 read independently today reveals sinus tachycardia biatrial enlargement nonspecific T wave abnormality DVT prophylaxis deferred to surgical service. Recommend utilization of 2016 ACCP guidelines. Apfel score is 1. (Score/Risk of PONV = 0/10%, 1/21%, 2/39%, 3/61%, 4/79%). This score has been externally validated. 4. Chronic obstructive pulmonary disease, unspecified COPD type (HCC) Patient with recent signs and symptoms of COPD exacerbation and decompensated pulmonary function. Will require pulmonary clearance for further risk stratification and optimization prior to elective surgery. 5. Multifocal pneumonia patient's nurse practitioner ordered a CT scan 06/14/2020 as her most recent chest x-ray 05/28/2020 revealed improved by lateral airspace opacities from his pneumonia which he was hospitalized for April 2020 6. History of acute respiratory failure patient has had multiple hospitalizations including March 2020, April 2020 and emergency room visit 05/28/2020 for COPD exacerbations. Patient saw the nurse practitioner Daniela at the pulmonology office 06/14/[address] and P[address] and a CT scan were ordered. Recommend patient complete this work-up and we will request a letter of pulmonary suitability for the planned procedure from his electrical tester. 7. COVID-19 virus infection patient developed COVID-19 after he was discharged to an ECF following his hospitalization in April 2020 8. History of sepsis patient was hospitalized with sepsis and acute respiratory failure April 2020 9. Essential hypertension BP Readings from Last 1 Encounters: 06/19/20 (!) 151/105 Blood pressure well controlled and optimized for surgery. Recommend continuation of current blood pressure medications in the perioperative period. 10. Allergic state, subsequent encounter patient advised to continue Banophen and Singulair throughout the perioperative period. 11. Gastroesophageal reflux disease without esophagitis Well controlled with PPI/[id number] which should be dosed perioperatively on usual home schedule. 12. Primary osteoarthritis of right hip patient advised to hold NSAIDs in anticipation of planned procedure 13. Thoracic aortic aneurysm, without rupture (HCC) I do not see recent imaging study. CT scan which was ordered 06/14/2020 by nurse practitioner Rosalia for evaluation 14. TIA (transient ischemic attack) this occurred greater than 4 years ago 15. History of thoracoabdominal aortic aneurysm (TAAA) patient has not had a recent imaging study however a CT scan has been ordered by his nurse practitioner at the pulmonology office. Recommend perform this prior to planned procedure 16. Tobacco Abuse Patient currently not manifesting any signs or symptoms of decompensated pulmonary disease and has been counseled on smoking cessation. Patient was advised of potential perioperative adverse effects associated with smoking such as increased risk for post-operative pulmonary complications, poor wound healing, and increased risk for infections. Recommend aggressive pulmonary toilet and lung expansion modalities including deep breathing and IS after surgery and perioperative nebulizers as needed. 17. Opioid use disorder (HCC) patient advised to hold Suboxone 72 hours prior to planned procedure 18. Crack Cocaine Use patient has a history of 35-year crack cocaine use but has been in recovery since 2018 Chief Complaint Patient presents with Pre-operative Medical Risk Stratification History of Present Illness Wolf Turcios is a 60 y.o. male who presents for preoperative medical risk stratification consult at the request of Leonardo Perla MD prior to HYDROCELECTOMY on 06/26/20. This patient has been diagnosed with hydrocele, unspecified hydrocele type (N43.3) and the above procedure has been recommended and scheduled for 06/26/2020. Patient surgery has been rescheduled 3 times due to illness. Patient was hospitalized 03/28/2020 with acute respiratory failure with hypoxia and COPD exacerbation. He was again hospitalized 04/13 through 04/22/2020 with acute respiratory failure sepsis and and pneumonia and was discharged to an [facility] where he developed COVID-19 in April 2020. Patient was seen in the emergency room 05/28/2020 with a COPD exacerbation and treated with antibiotics. Patient saw his pulmonary nurse practitioner Daniela 06/14/2020. At that time chest x-ray from 05/28/2020 which showed improved bilateral airspace opacities therefore CT scan was ordered and pulmonary function tests ordered. Patient COPD was noted to be severe. Patient recommended to complete this work-up and we will request a letter of pulmonary suitability for the planned procedure from her his electrical tester. Patient states just last week he contacted his family physician due to coughing up green phlegm and was given a Zithromax prescription to take as needed as backup. Patient states he took 1 dose and was not planning on taking further medication. Patient believes his current breathing is at his baseline. Patient experienced a TIA 4 years ago. He denies any history of heart problems. 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 He denies a diagnosis of or symptoms concerning for sleep apnea. He denies a diagnosis of liver or kidney disease and is not diabetic. He has high blood pressure which is elevated today. He has GERD. He has osteoarthritis of his right hip and is considering hip replacement surgery. He has chronic low back pain. He has a thoracic abdominal aortic aneurysm. The CT scan that was ordered by his electrical tester would be able to evaluate that as I do not see a recent imaging study. Patient did experience a cardiac echo 11/02/2019 which revealed mild diastolic dysfunction with an ejection fraction of 55 to 60%. He had a coronary calcium CT scan 12/14/2017 with an Agatston score of 0. Patient has a history of crack cocaine abuse for 35 years but has been abstinent since 2018. He currently is on Suboxone for opioid use disorder. He smokes 8 to 9 cigarettes daily and denies the use of alcohol. With previous procedures he has had no complications of anesthesia or postoperative nausea or vomiting. Patient's activity level is limited and I would estimate his functional capacity is being less than 4 METS. Please see below regarding status of active medical conditions and assessment and plan regarding details of preoperative medical risk stratification. Past Medical History: Diagnosis Date Asthma COPD (chronic obstructive pulmonary disease) ([facility]) Emphysema of lung ([facility]) Essential hypertension 01/10/2017 Hyperlipidemia Polysubstance abuse ([facility]) PUD (peptic ulcer disease) Thoracic aortic aneurysm ([facility]) TIA (transient ischemic attack) Tobacco Abuse Past Medical History Pertinent Negatives: Diagnosis Date Noted Diabetes mellitus ([facility]) 01/10/2017 Renal insufficiency 01/10/2017 Past Surgical History: Procedure Laterality Date EYE SURGERY GASTRIC ULCER PERFORATION REPAIR Social History Tobacco Use Smoking status: Current Every Day Smoker Packs/day: 0.25 Years: 39.00 Pack years: 9.75 Types: Cigarettes Smokeless tobacco: Never Used Tobacco comment: Trying to cut back, 8 cigs per day Substance Use Topics Alcohol use: Not Currently Comment: 1 beer per month Family History Problem Relation Age of Onset Diabetes Mother Diabetes Father Throat cancer Sister Heart attack Maternal Grandmother Prior to Admission medications Medication Sig Taking? Dose Freq albuterol (PROVENTIL) 2.5 mg /3 mL (0.083 %) nebulizer solution Take 3 mL (2.5 mg total) by nebulization every 4 (four) hours as needed for wheezing Dx: J44.0 . Yes 2.5 mg, Nebulization, Every 4 hours PRN, Dx: J44.0 albuterol 90 mcg/actuation inhaler Inhale 2 (two) puffs every 4 (four) hours as needed for wheezing Reasons: chronic obstructive pulmonary disease. Yes 2 puffs, Inhalation, Every 4 hours PRN Banophen 25 mg capsule Take 25 mg by mouth daily as needed for allergies . Yes 25 mg, Oral, Daily PRN budesonide-formoteroL (SYMBICORT) 160-4.5 mcg/actuation inhaler Inhale 2 (two) puffs 2 (two) times a day . Yes 2 puffs, Inhalation, 2 times daily buprenorphine-nalOXone (SUBOXONE) 8-[address] 1 tablet under the tongue every morning . Yes 1 tablet, Sublingual, Every morning cyclobenzaprine (FLEXERIL) 5 MG tablet Take 10 mg by mouth 2 (two) times a day as needed for muscle spasms . Yes 10 mg, Oral, 2 times daily PRN guaiFENesin (Mucinex) 1,200 mg Ta12 Take 1,200 mg by mouth every morning . Yes 1,200 mg, Oral, Every morning hydroCHLOROthiazide (HYDRODIURIL) 12.5 MG tablet Take 12.5 mg by mouth every morning . Yes 12.5 mg, Oral, Every morning loratadine (CLARITIN) 10 mg tablet Take 10 mg by mouth every morning . Yes 10 mg, Oral, Every morning montelukast (SINGULAIR) 10 mg tablet Take 1 (one) tablet (10 mg total) by mouth nightly . Yes 10 mg, Oral, Nightly nicotine (NICODERM CQ) 21 mg/[address] 1 patch on the skin daily as needed . Yes 1 patch, Transdermal, Daily PRN nicotine polacrilex (NICORETTE) 4 MG gum Apply 4 mg to the mouth or throat as needed for smoking cessation . Yes 4 mg, Mouth/Throat, As needed tiotropium bromide (Spiriva Respimat) 2.5 mcg/actuation Mist Inhale 2 (two) puffs daily . Yes 2 sprays, Inhalation, Daily azithromycin (ZITHROMAX) 250 MG tablet Take 2 tabs today then 1 tablet daily until gone. . Take 2 tabs today then 1 tablet daily until gone. acetaminophen (TYLENOL) 500 MG tablet Take 500 mg by mouth every 8 (eight) hours as needed . 500 mg, Oral, Every 8 hours PRN Eliquis 2.5 mg Tab No dose, route, or frequency recorded. guaiFENesin (MUCINEX) 600 mg 12 hr tablet Take 1 (one) tablet (600 mg total) by mouth every 12 (twelve) hours . 600 mg, Oral, Every 12 hours HYDROcodone-acetaminophen (NORCO) 5-325 mg per tablet No dose, route, or frequency recorded. omeprazole (PRILOSEC) 40 MG capsule No dose, route, or frequency recorded. Allergies Allergen Reactions Tylenol [Acetaminophen] Urinary tract infection Codeine Itching Including all derivatives - is well tolerated when taking Benadryl prophylaxis Review of Systems Constitution: (negative) HENT: (negative) Eyes: (negative) Respiratory: - As above Cardiovascular: (negative) - Exercise capacity: Less than 4 METS Gastrointestinal: - As above Genitourinary: - As above Musculoskeletal: - As above Skin: (negative) Neurological: - As above Hematological: (negative) Physical Exam BP (!) 151/105 Pulse 97 Temp 98.6 F (37 C) (Oral) Resp 18 Ht 6' 1 Wt 70.6 kg (155 lb 10.3 oz) SpO2 93% BMI 20.53 kg/m Constitutional: Conversant, in no acute distress Eyes: No Scleral Icterus, no ptosis. Pupils equal and round. Ears/nose/mouth/throat: Nose and ears appear normal. Oropharynx clear. Neck: Trachea midline, no goiter Respiratory: Clear to auscultation, increased respiratory effort which patient states is his baseline Cardiovascular: Regular rate and rhythm. No peripheral edema. Pulses palpable at the ankle. Gastrointestinal: Abdomen soft, nontender, no masses noted. Genitourinary: No suprapubic tenderness. Musculoskeletal: No calf tenderness with palpation, no digital cyanosis or clubbing. Skin: No rashes, Normal turgor and temperature. Neurologic: No focal deficits noted. Psychiatric: Appropriate affect, Alert and Oriented x 3. Data Preprocedure Sleep Apnea Assessment - No Risk (0/3) Sleep Apnea in the patient's Active Problem List or Medical History: no 1. History of apparent airway obstruction during sleep: (1 point for this category) Do you snore frequently, or snore loud enough to be heard through a closed door?: no Do you awaken from sleep with a choking sensation or have periods during sleep when someone has observed you pausing between breaths?: no 2. Somnolence of the patient: (1 point for this category) Do you find yourself frequently sleepy despite adequate hours of sleep the night before?: no Do you fall asleep easily while: watching TV, reading, riding in or driving a car?: no 3. Predisposing physician characteristics: (1 point for this category, 2 points if the BMI ? 40) BMI (Calculated): 20.5 Recent Results (from the past 48332 hours) ECHOCARDIOGRAM COMPLETE 11/02/2019 (Final) Status: Normal Narrative Transthoracic Echocardiogram Patient: KAROLINA Vazquez [facility] Rec#: [id number] (Age): 1960(59y) Height: 187(cm)/73(in) Study Date: 11/02/2019 Weight: 63.5(kg)/140(lb Room#: 56 BSA: [id number] Type: Inpatient Loc: [facility] Lab Sex: M Reading: Jeremiah Romero D.O. Referring: Lisa Howe Plow Mechanic: LATISHA DURAN History: Asthma. COPD. Hypertension. Diagnosis: ICD-10-PCS Syncope and collapse (R55) Syncope (780.2) CPT Code(s): ECHO COMPLETE W/ DOPPLER (17389) Study Quality The study quality is technically difficult. Summary: Patient identity verified and ID band on (pause and confirm). Current HP present on patient chart. Procedure explained and patient verified understanding. Conclusions: Normal LV chamber size and function, LVEF 55-60%. Normal RV chamber size and function. No significant valvular dysfunction. Findings Reason For Study: Syncope. Left Ventricle: The left ventricular chamber size is normal. The estimated ejection fraction is 55-60%. The diastolic filling pattern is consistent with impaired relaxation and normal LA pressure (Mild diastolic dysfunction). Mild concentric remodeling of the LV. Atypical septal motion, possibly due to a bundle branch block. Left Atrium: The left atrial chamber size is normal. Right Ventricle: The right ventricular cavity size is normal. The right ventricular global systolic function is normal. Right Atrium: The right atrial cavity size is normal. Aortic Valve: The aortic valve is not well visualized. There is no hemodynamically significant stenosis. There is no evidence of aortic regurgitation. Mitral Valve: The mitral valve leaflets appear normal. There is no evidence of mitral stenosis. There is no evidence of mitral regurgitation. Tricuspid Valve: The tricuspid valve leaflets are normal. There is no evidence of tricuspid valve regurgitation. Pulmonary artery pressure could not be estimated. Pulmonic Valve: The pulmonic valve appears grossly normal in structure and function. There is no pulmonic stenosis. There is no evidence of pulmonic regurgitation. Pericardium: The pericardium appears normal. Aorta: The aorta appears normal. Pulmonary Artery: The main pulmonary artery appears normal. Venous: The inferior vena cava appears normal. HR 73 BP 146/85 Measurements Chambers MM Name Value Normal Range AV cusp separation (MM) 2.1 cm none Chambers 2D Name Value Normal Range IVSd (2D) 1.06 cm none LVPWd (2D) 1.48 cm none IVS:LVPW ratio (2D) 0.72 ratio none LVIDd (2D) 3.85 cm none LVIDs (2D) 2.91 cm none LVIDd (2D) index 2.07 cm/m2 none LVIDs (2D) index 1.56 cm/m2 none LV FS (2D) 24.42 % none LV FS (Teichholz) (2D) 24.4 % none LV FS (cube) (2D) 24.4 % none EF Teichholz (2D) 49.17 % none LA dimension (AP) 2D 2.9 cm none LA dimension (2D) index 1.56 cm/m2 none Volumes/Mass Name Value Normal Range LV EDV SP 4CH (MOD) 90.6 ml none LV ESV SP 4CH (MOD) 28.6 ml none EF SP 4CH (MOD) 68.43 % none LV EDV SP 2CH (MOD) 59.8 ml none LV ESV SP 2CH (MOD) 22.2 ml none EF SP 2CH (MOD) 62.88 % none LV EDV BP 75.3 ml none LV ESV BP 25.1 ml none BP EF (MOD) 66.67 % none LV EDV BP index 40.47 ml/m2 none LV ESV BP index 13.49 ml/m2 none LV mass (2D) 170.2 g none LV mass (2D) index 91.48 g/m2 none Diastolic/Systolic Function Name Value Normal Range MV E-wave Vmax 0.63 m/sec none MV deceleration time 218 msec none MV A-wave Vmax 0.72 m/sec none MV E:A ratio 0.87 ratio (1.1 - 1.5) LV E:e' septal ratio 6.7 ratio none LV E:e' lateral ratio 7.3 ratio none Aortic Valve Name Value Normal Range AV Vmax 1.03 m/sec (1 - 1.7) AV peak gradient 4.24 mmHg (Less Than 36) LVOT diameter 2.1 cm (1.7 - 2.5) LVOT Vmax 0.91 m/sec (0.7 - 1.1) LVOT peak gradient 3 mmHg none DOI (Vmax) 0.88 ratio none SWETA (continuity Vmax) 3.05 cm2 none SWETA (continuity Vmax) index 1.64 cm2/m2 none Pulmonic Valve/Qp:Qs Name Value Normal Range PV Vmax 0.9 m/sec (0.6 - 0.9) PV peak gradient 3.23 mmHg none PV acceleration time 109 msec none Electronically Signed at 11/02/2019 16:05:30 by: Jeremiah Romero D.O. Recent Results (from the past 21894 hours) XR CHEST PA/AP 05/28/2020 (Final) Status: Normal Narrative EXAMINATION: ONE XRAY VIEW OF THE CHEST 05/28/2020 1:45 pm COMPARISON: 04/16/2020 HISTORY: ORDERING SYSTEM PROVIDED HISTORY: SOB, h/o COPD, PNA, recent COVID (dx 04/23/20, then resolved); TECHNOLOGIST PROVIDED HISTORY: Illness/Other Acuity: Unknown Reason for Exam: SOB, h/o COPD, PNA, recent COVID (dx 04/23/20, then resolved) Type of Encounter: Initial Additional signs and symptoms: unk FINDINGS: Cardiomediastinal silhouette is stable. Improved bilateral airspace opacities. No pleural effusion or pneumothorax. No gross bony abnormality. Impression Improved bilateral airspace opacities. Workstation ID: [id number] documented in this encounter Assessment and Plan 1. Preop examination Medically acceptable risk for elective major procedure with risk factors as outlined below and pending review of the following ordered tests: Letter of pulmonary suitability and completion of pulmonary work-up from patient's 06/14/2020 visit with nurse practitioner Rosalia. 2. Hydrocele, unspecified hydrocele type Primary management per surgical team. Patient provided instructions on preoperative management of medications including withholding Aspirin, NSAIDS, and specific Herbal Supplements. 3. Preop cardiovascular exam Patient denies any active cardiac conditions and has a revised cardiac risk index of 1. Patient denied any current cardiac symptoms and has less than 4 METS of functional capacity and is at acceptable cardiac risk for elective surgery based on 2014 ACC/AHA guidelines. TTE performed 11/02/2019 revealed normal left ventricular chamber size and function with an ejection fraction of 55 to 60% EKG performed 05/28/2020 read independently today reveals sinus tachycardia biatrial enlargement nonspecific T wave abnormality DVT prophylaxis deferred to surgical service. Recommend utilization of 2016 ACCP guidelines. Apfel score is 1. (Score/Risk of PONV = 0/10%, 1/21%, 2/39%, 3/61%, 4/79%). This score has been externally validated. 4. Chronic obstructive pulmonary disease, unspecified COPD type (HCC) Patient with recent signs and symptoms of COPD exacerbation and decompensated pulmonary function. Will require pulmonary clearance for further risk stratification and optimization prior to elective surgery. 5. Multifocal pneumonia patient's nurse practitioner ordered a CT scan 06/14/2020 as her most recent chest x-ray 05/28/2020 revealed improved by lateral airspace opacities from his pneumonia which he was hospitalized for April 2020 6. History of acute respiratory failure patient has had multiple hospitalizations including March 2020, April 2020 and emergency room visit 05/28/2020 for COPD exacerbations. Patient saw the nurse practitioner Daniela at the pulmonology office 06/14/2020 and PFTs and a CT scan were ordered. Recommend patient complete this work-up and we will request a letter of pulmonary suitability for the planned procedure from his electrical tester. 7. COVID-19 virus infection patient developed COVID-19 after he was discharged to an [facility] following his hospitalization in April 2020 8. History of sepsis patient was hospitalized with sepsis and acute respiratory failure April 2020 9. Essential hypertension BP Readings from Last 1 Encounters: 06/19/20 (!) 151/105 Blood pressure well controlled and optimized for surgery. Recommend continuation of current blood pressure medications in the perioperative period. 10. Allergic state, subsequent encounter patient advised to continue Banophen and Singulair throughout the perioperative period. 11. Gastroesophageal reflux disease without esophagitis Well controlled with PPI/[id number] which should be dosed perioperatively on usual home schedule. 12. Primary osteoarthritis of right hip patient advised to hold NSAIDs in anticipation of planned procedure 13. Thoracic aortic aneurysm, without rupture (HCC) I do not see recent imaging study. CT scan which was ordered 06/14/2020 by nurse practitioner Rosalia for evaluation 14. TIA (transient ischemic attack) this occurred greater than 4 years ago 15. History of thoracoabdominal aortic aneurysm (TAAA) patient has not had a recent imaging study however a CT scan has been ordered by his nurse practitioner at the pulmonology office. Recommend perform this prior to planned procedure 16. Tobacco Abuse Patient currently not manifesting any signs or symptoms of decompensated pulmonary disease and has been counseled on smoking cessation. Patient was advised of potential perioperative adverse effects associated with smoking such as increased risk for post-operative pulmonary complications, poor wound healing, and increased risk for infections. Recommend aggressive pulmonary toilet and lung expansion modalities including deep breathing and IS after surgery and perioperative nebulizers as needed. 17. Opioid use disorder (HCC) patient advised to hold Suboxone 72 hours prior to planned procedure 18. Crack Cocaine Use patient has a history of 35-year crack cocaine use but has been in recovery since 2018 Chief Complaint Patient presents with Pre-operative Medical Risk Stratification History of Present Illness Wolf Turcios is a 60 y.o. male who presents for preoperative medical risk stratification consult at the request of Leonardo Perla MD prior to HYDROCELECTOMY on 06/26/20. This patient has been diagnosed with hydrocele, unspecified hydrocele type (N43.3) and the above procedure has been recommended and scheduled for 06/26/2020. Patient surgery has been rescheduled 3 times due to illness. Patient was hospitalized 03/28/2020 with acute respiratory failure with hypoxia and COPD exacerbation. He was again hospitalized 04/13 through 04/22/2020 with acute respiratory failure sepsis and and pneumonia and was discharged to an [facility] where he developed COVID-19 in April 2020. Patient was seen in the emergency room 05/28/2020 with a COPD exacerbation and treated with antibiotics. Patient saw his pulmonary nurse practitioner Danieal 06/14/2020. At that time chest x-ray from 05/28/2020 which showed improved bilateral airspace opacities therefore CT scan was ordered and pulmonary function tests ordered. Patient COPD was noted to be severe. Patient recommended to complete this work-up and we will request a letter of pulmonary suitability for the planned procedure from her his electrical tester. Patient states just last week he contacted his family physician due to coughing up green phlegm and was given a Zithromax prescription to take as needed as backup. Patient states he took 1 dose and was not planning on taking further medication. Patient believes his current breathing is at his baseline. Patient experienced a TIA 4 years ago. He denies any history of heart problems. 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 He denies a diagnosis of or symptoms concerning for sleep apnea. He denies a diagnosis of liver or kidney disease and is not diabetic. He has high blood pressure which is elevated today. He has GERD. He has osteoarthritis of his right hip and is considering hip replacement surgery. He has chronic low back pain. He has a thoracic abdominal aortic aneurysm. The CT scan that was ordered by his electrical tester would be able to evaluate that as I do not see a recent imaging study. Patient did experience a cardiac echo 11/02/2019 which revealed mild diastolic dysfunction with an ejection fraction of 55 to 60%. He had a coronary calcium CT scan 12/14/2017 with an Agatston score of 0. Patient has a history of crack cocaine abuse for 35 years but has been abstinent since 2018. He currently is on Suboxone for opioid use disorder. He smokes 8 to 9 cigarettes daily and denies the use of alcohol. With previous procedures he has had no complications of anesthesia or postoperative nausea or vomiting. Patient's activity level is limited and I would estimate his functional capacity is being less than 4 METS. Please see below regarding status of active medical conditions and assessment and plan regarding details of preoperative medical risk stratification. Past Medical History: Diagnosis Date Asthma COPD (chronic obstructive pulmonary disease) (HCC) Emphysema of lung (HCC) Essential hypertension 01/10/2017 Hyperlipidemia Polysubstance abuse (HCC) PUD (peptic ulcer disease) Thoracic aortic aneurysm (HCC) TIA (transient ischemic attack) Tobacco Abuse Past Medical History Pertinent Negatives: Diagnosis Date Noted Diabetes mellitus (HCC) 01/10/2017 Renal insufficiency 01/10/2017 Past Surgical History: Procedure Laterality Date EYE SURGERY GASTRIC ULCER PERFORATION REPAIR Social History Tobacco Use Smoking status: Current Every Day Smoker Packs/day: 0.25 Years: 39.00 Pack years: 9.75 Types: Cigarettes Smokeless tobacco: Never Used Tobacco comment: Trying to cut back, 8 cigs per day Substance Use Topics Alcohol use: Not Currently Comment: 1 beer per month Family History Problem Relation Age of Onset Diabetes Mother Diabetes Father Throat cancer Sister Heart attack Maternal Grandmother Prior to Admission medications Medication Sig Taking? Dose Freq albuterol (PROVENTIL) 2.5 mg /3 mL (0.083 %) nebulizer solution Take 3 mL (2.5 mg total) by nebulization every 4 (four) hours as needed for wheezing Dx: J44.0 . Yes 2.5 mg, Nebulization, Every 4 hours PRN, Dx: J44.0 albuterol 90 mcg/actuation inhaler Inhale 2 (two) puffs every 4 (four) hours as needed for wheezing Reasons: chronic obstructive pulmonary disease. Yes 2 puffs, Inhalation, Every 4 hours PRN Banophen 25 mg capsule Take 25 mg by mouth daily as needed for allergies . Yes 25 mg, Oral, Daily PRN budesonide-formoteroL (SYMBICORT) 160-4.5 mcg/actuation inhaler Inhale 2 (two) puffs 2 (two) times a day . Yes 2 puffs, Inhalation, 2 times daily buprenorphine-nalOXone (SUBOXONE) 8-2 mg tablet Place 1 tablet under the tongue every morning . Yes 1 tablet, Sublingual, Every morning cyclobenzaprine (FLEXERIL) 5 MG tablet Take 10 mg by mouth 2 (two) times a day as needed for muscle spasms . Yes 10 mg, Oral, 2 times daily PRN guaiFENesin (Mucinex) 1,200 mg Ta12 Take 1,200 mg by mouth every morning . Yes 1,200 mg, Oral, Every morning hydroCHLOROthiazide (HYDRODIURIL) 12.5 MG tablet Take 12.5 mg by mouth every morning . Yes 12.5 mg, Oral, Every morning loratadine (CLARITIN) 10 mg tablet Take 10 mg by mouth every morning . Yes 10 mg, Oral, Every morning montelukast (SINGULAIR) 10 mg tablet Take 1 (one) tablet (10 mg total) by mouth nightly . Yes 10 mg, Oral, Nightly nicotine (NICODERM CQ) 21 mg/[address] 1 patch on the skin daily as needed . Yes 1 patch, Transdermal, Daily PRN nicotine polacrilex (NICORETTE) 4 MG gum Apply 4 mg to the mouth or throat as needed for smoking cessation . Yes 4 mg, Mouth/Throat, As needed tiotropium bromide (Spiriva Respimat) 2.5 mcg/actuation Mist Inhale 2 (two) puffs daily . Yes 2 sprays, Inhalation, Daily azithromycin (ZITHROMAX) 250 MG tablet Take 2 tabs today then 1 tablet daily until gone. . Take 2 tabs today then 1 tablet daily until gone. acetaminophen (TYLENOL) 500 MG tablet Take 500 mg by mouth every 8 (eight) hours as needed . 500 mg, Oral, Every 8 hours PRN Eliquis 2.5 mg Tab No dose, route, or frequency recorded. guaiFENesin (MUCINEX) 600 mg 12 hr tablet Take 1 (one) tablet (600 mg total) by mouth every 12 (twelve) hours . 600 mg, Oral, Every 12 hours HYDROcodone-acetaminophen (NORCO) 5-325 mg per tablet No dose, route, or frequency recorded. omeprazole (PRILOSEC) 40 MG capsule No dose, route, or frequency recorded. Allergies Allergen Reactions Tylenol [Acetaminophen] Urinary tract infection Codeine Itching Including all derivatives - is well tolerated when taking Benadryl prophylaxis Review of Systems Constitution: (negative) HENT: (negative) Eyes: (negative) Respiratory: - As above Cardiovascular: (negative) - Exercise capacity: Less than 4 METS Gastrointestinal: - As above Genitourinary: - As above Musculoskeletal: - As above Skin: (negative) Neurological: - As above Hematological: (negative) Physical Exam BP (!) 151/105 Pulse 97 Temp 98.6 F (37 C) (Oral) Resp 18 Ht 6' 1 Wt 70.6 kg (155 lb 10.3 oz) SpO2 93% BMI 20.53 kg/m Constitutional: Conversant, in no acute distress Eyes: No Scleral Icterus, no ptosis. Pupils equal and round. Ears/nose/mouth/throat: Nose and ears appear normal. Oropharynx clear. Neck: Trachea midline, no goiter Respiratory: Clear to auscultation, increased respiratory effort which patient states is his baseline Cardiovascular: Regular rate and rhythm. No peripheral edema. Pulses palpable at the ankle. Gastrointestinal: Abdomen soft, nontender, no masses noted. Genitourinary: No suprapubic tenderness. Musculoskeletal: No calf tenderness with palpation, no digital cyanosis or clubbing. Skin: No rashes, Normal turgor and temperature. Neurologic: No focal deficits noted. Psychiatric: Appropriate affect, Alert and Oriented x 3. Data Preprocedure Sleep Apnea Assessment - No Risk (0/3) Sleep Apnea in the patient's Active Problem List or Medical History: no 1. History of apparent airway obstruction during sleep: (1 point for this category) Do you snore frequently, or snore loud enough to be heard through a closed door?: no Do you awaken from sleep with a choking sensation or have periods during sleep when someone has observed you pausing between breaths?: no 2. Somnolence of the patient: (1 point for this category) Do you find yourself frequently sleepy despite adequate hours of sleep the night before?: no Do you fall asleep easily while: watching TV, reading, riding in or driving a car?: no 3. Predisposing physician characteristics: (1 point for this category, 2 points if the BMI ? 40) BMI (Calculated): 20.5 Recent Results (from the past 21209 hours) ECHOCARDIOGRAM COMPLETE 11/02/2019 (Final) Status: Normal Narrative Transthoracic Echocardiogram Patient: KAROLINA Vazquez [facility] Rec#: [id number] (Age): 1960(59y) Height: 187(cm)/73(in) Study Date: 11/02/2019 Weight: 63.5(kg)/140(lb Room#: 56 BSA: [id number] Type: Inpatient Loc: [facility] Lab Sex: M Reading: Jeremiah Romero D.O. Referring: Lisa Howe Plow Mechanic: LATISHA DURAN History: Asthma. COPD. Hypertension. Diagnosis: ICD-10-PCS Syncope and collapse (R55) Syncope (780.2) CPT Code(s): ECHO COMPLETE W/ DOPPLER (21305) Study Quality The study quality is technically difficult. Summary: Patient identity verified and ID band on (pause and confirm). Current HP present on patient chart. Procedure explained and patient verified understanding. Conclusions: Normal LV chamber size and function, LVEF 55-60%. Normal RV chamber size and function. No significant valvular dysfunction. Findings Reason For Study: Syncope. Left Ventricle: The left ventricular chamber size is normal. The estimated ejection fraction is 55-60%. The diastolic filling pattern is consistent with impaired relaxation and normal LA pressure (Mild diastolic dysfunction). Mild concentric remodeling of the LV. Atypical septal motion, possibly due to a bundle branch block. Left Atrium: The left atrial chamber size is normal. Right Ventricle: The right ventricular cavity size is normal. The right ventricular global systolic function is normal. Right Atrium: The right atrial cavity size is normal. Aortic Valve: The aortic valve is not well visualized. There is no hemodynamically significant stenosis. There is no evidence of aortic regurgitation. Mitral Valve: The mitral valve leaflets appear normal. There is no evidence of mitral stenosis. There is no evidence of mitral regurgitation. Tricuspid Valve: The tricuspid valve leaflets are normal. There is no evidence of tricuspid valve regurgitation. Pulmonary artery pressure could not be estimated. Pulmonic Valve: The pulmonic valve appears grossly normal in structure and function. There is no pulmonic stenosis. There is no evidence of pulmonic regurgitation. Pericardium: The pericardium appears normal. Aorta: The aorta appears normal. Pulmonary Artery: The main pulmonary artery appears normal. Venous: The inferior vena cava appears normal. HR 73 BP 146/85 Measurements Chambers MM Name Value Normal Range AV cusp separation (MM) 2.1 cm none Chambers 2D Name Value Normal Range IVSd (2D) 1.06 cm none LVPWd (2D) 1.48 cm none IVS:LVPW ratio (2D) 0.72 ratio none LVIDd (2D) 3.85 cm none LVIDs (2D) 2.91 cm none LVIDd (2D) index 2.07 cm/m2 none LVIDs (2D) index 1.56 cm/m2 none LV FS (2D) 24.42 % none LV FS (Teichholz) (2D) 24.4 % none LV FS (cube) (2D) 24.4 % none EF Teichholz (2D) 49.17 % none LA dimension (AP) 2D 2.9 cm none LA dimension (2D) index 1.56 cm/m2 none Volumes/Mass Name Value Normal Range LV EDV SP 4CH (MOD) 90.6 ml none LV ESV SP 4CH (MOD) 28.6 ml none EF SP 4CH (MOD) 68.43 % none LV EDV SP 2CH (MOD) 59.8 ml none LV ESV SP 2CH (MOD) 22.2 ml none EF SP 2CH (MOD) 62.88 % none LV EDV BP 75.3 ml none LV ESV BP 25.1 ml none BP EF (MOD) 66.67 % none LV EDV BP index 40.47 ml/m2 none LV ESV BP index 13.49 ml/m2 none LV mass (2D) 170.2 g none LV mass (2D) index 91.48 g/m2 none Diastolic/Systolic Function Name Value Normal Range MV E-wave Vmax 0.63 m/sec none MV deceleration time 218 msec none MV A-wave Vmax 0.72 m/sec none MV E:A ratio 0.87 ratio (1.1 - 1.5) LV E:e' septal ratio 6.7 ratio none LV E:e' lateral ratio 7.3 ratio none Aortic Valve Name Value Normal Range AV Vmax 1.03 m/sec (1 - 1.7) AV peak gradient 4.24 mmHg (Less Than 36) LVOT diameter 2.1 cm (1.7 - 2.5) LVOT Vmax 0.91 m/sec (0.7 - 1.1) LVOT peak gradient 3 mmHg none DOI (Vmax) 0.88 ratio none SWETA (continuity Vmax) 3.05 cm2 none SWETA (continuity Vmax) index 1.64 cm2/m2 none Pulmonic Valve/Qp:Qs Name Value Normal Range PV Vmax 0.9 m/sec (0.6 - 0.9) PV peak gradient 3.23 mmHg none PV acceleration time 109 msec none Electronically Signed at 11/02/2019 16:05:30 by: Jeremiah Romero D.O. Recent Results (from the past 37865 hours) XR CHEST PA/AP 05/28/2020 (Final) Status: Normal Narrative EXAMINATION: ONE XRAY VIEW OF THE CHEST 05/28/2020 1:45 pm COMPARISON: 04/16/2020 HISTORY: ORDERING SYSTEM PROVIDED HISTORY: SOB, h/o COPD, PNA, recent COVID (dx 04/23/20, then resolved); TECHNOLOGIST PROVIDED HISTORY: Illness/Other Acuity: Unknown Reason for Exam: SOB, h/o COPD, PNA, recent COVID (dx 04/23/20, then resolved) Type of Encounter: Initial Additional signs and symptoms: unk FINDINGS: Cardiomediastinal silhouette is stable. Improved bilateral airspace opacities. No pleural effusion or pneumothorax. No gross bony abnormality. Impression Improved bilateral airspace opacities. Workstation ID: [id number] documented in this encounter Assessment and Plan 1. Preop examination Medically acceptable risk for elective major procedure with risk factors as outlined below and pending review of the following ordered tests: Letter of pulmonary suitability and completion of pulmonary work-up from patient's 06/14/2020 visit with nurse practitioner Rosalia. 2. Hydrocele, unspecified hydrocele type Primary management per surgical team. Patient provided instructions on preoperative management of medications including withholding Aspirin, NSAIDS, and specific Herbal Supplements. 3. Preop cardiovascular exam Patient denies any active cardiac conditions and has a revised cardiac risk index of 1. Patient denied any current cardiac symptoms and has less than 4 METS of functional capacity and is at acceptable cardiac risk for elective surgery based on 2014 ACC/AHA guidelines. TTE performed 11/02/2019 revealed normal left ventricular chamber size and function with an ejection fraction of 55 to 60% EKG performed 05/28/2020 read independently today reveals sinus tachycardia biatrial enlargement nonspecific T wave abnormality DVT prophylaxis deferred to surgical service. Recommend utilization of 2016 ACCP guidelines. Apfel score is 1. (Score/Risk of PONV = 0/10%, 1/21%, 2/39%, 3/61%, 4/79%). This score has been externally validated. 4. Chronic obstructive pulmonary disease, unspecified COPD type (HCC) Patient with recent signs and symptoms of COPD exacerbation and decompensated pulmonary function. Will require pulmonary clearance for further risk stratification and optimization prior to elective surgery. 5. Multifocal pneumonia patient's nurse practitioner ordered a CT scan 06/14/2020 as her most recent chest x-ray 05/28/2020 revealed improved by lateral airspace opacities from his pneumonia which he was hospitalized for April 2020 6. History of acute respiratory failure patient has had multiple hospitalizations including March 2020, April 2020 and emergency room visit 05/28/2020 for COPD exacerbations. Patient saw the nurse practitioner Daniela at the pulmonology office 06/14/2020 and PFTs and a CT scan were ordered. Recommend patient complete this work-up and we will request a letter of pulmonary suitability for the planned procedure from his electrical tester. 7. COVID-19 virus infection patient developed COVID-19 after he was discharged to an ECF following his hospitalization in April 2020 8. History of sepsis patient was hospitalized with sepsis and acute respiratory failure April 2020 9. Essential hypertension BP Readings from Last 1 Encounters: 06/19/20 (!) 151/105 Blood pressure well controlled and optimized for surgery. Recommend continuation of current blood pressure medications in the perioperative period. 10. Allergic state, subsequent encounter patient advised to continue Banophen and Singulair throughout the perioperative period. 11. Gastroesophageal reflux disease without esophagitis Well controlled with PPI/[id number] which should be dosed perioperatively on usual home schedule. 12. Primary osteoarthritis of right hip patient advised to hold NSAIDs in anticipation of planned procedure 13. Thoracic aortic aneurysm, without rupture (HCC) I do not see recent imaging study. CT scan which was ordered 06/14/2020 by nurse practitioner Rosalia for evaluation 14. TIA (transient ischemic attack) this occurred greater than 4 years ago 15. History of thoracoabdominal aortic aneurysm (TAAA) patient has not had a recent imaging study however a CT scan has been ordered by his nurse practitioner at the pulmonology office. Recommend perform this prior to planned procedure 16. Tobacco Abuse Patient currently not manifesting any signs or symptoms of decompensated pulmonary disease and has been counseled on smoking cessation. Patient was advised of potential perioperative adverse effects associated with smoking such as increased risk for post-operative pulmonary complications, poor wound healing, and increased risk for infections. Recommend aggressive pulmonary toilet and lung expansion modalities including deep breathing and IS after surgery and perioperative nebulizers as needed. 17. Opioid use disorder (HCC) patient advised to hold Suboxone 72 hours prior to planned procedure 18. Crack Cocaine Use patient has a history of 35-year crack cocaine use but has been in recovery since 2018 Chief Complaint Patient presents with Pre-operative Medical Risk Stratification History of Present Illness Wolf Turcios is a 60 y.o. male who presents for preoperative medical risk stratification consult at the request of Leonardo Perla MD prior to HYDROCELECTOMY on 06/26/20. This patient has been diagnosed with hydrocele, unspecified hydrocele type (N43.3) and the above procedure has been recommended and scheduled for 06/26/2020. Patient surgery has been rescheduled 3 times due to illness. Patient was hospitalized 03/28/2020 with acute respiratory failure with hypoxia and COPD exacerbation. He was again hospitalized 04/13 through 04/22/2020 with acute respiratory failure sepsis and and pneumonia and was discharged to an [facility] where he developed COVID-19 in April 2020. Patient was seen in the emergency room 05/28/2020 with a COPD exacerbation and treated with antibiotics. Patient saw his pulmonary nurse practitioner Daniela 06/14/2020. At that time chest x-ray from 05/28/2020 which showed improved bilateral airspace opacities therefore CT scan was ordered and pulmonary function tests ordered. Patient COPD was noted to be severe. Patient recommended to complete this work-up and we will request a letter of pulmonary suitability for the planned procedure from her his electrical tester. Patient states just last week he contacted his family physician due to coughing up green phlegm and was given a Zithromax prescription to take as needed as backup. Patient states he took 1 dose and was not planning on taking further medication. Patient believes his current breathing is at his baseline. Patient experienced a TIA 4 years ago. He denies any history of heart problems. 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 He denies a diagnosis of or symptoms concerning for sleep apnea. He denies a diagnosis of liver or kidney disease and is not diabetic. He has high blood pressure which is elevated today. He has GERD. He has osteoarthritis of his right hip and is considering hip replacement surgery. He has chronic low back pain. He has a thoracic abdominal aortic aneurysm. The CT scan that was ordered by his electrical tester would be able to evaluate that as I do not see a recent imaging study. Patient did experience a cardiac echo 11/02/2019 which revealed mild diastolic dysfunction with an ejection fraction of 55 to 60%. He had a coronary calcium CT scan 12/14/2017 with an Agatston score of 0. Patient has a history of crack cocaine abuse for 35 years but has been abstinent since 2018. He currently is on Suboxone for opioid use disorder. He smokes 8 to 9 cigarettes daily and denies the use of alcohol. With previous procedures he has had no complications of anesthesia or postoperative nausea or vomiting. Patient's activity level is limited and I would estimate his functional capacity is being less than 4 METS. Please see below regarding status of active medical conditions and assessment and plan regarding details of preoperative medical risk stratification. Past Medical History: Diagnosis Date Asthma COPD (chronic obstructive pulmonary disease) ([facility]) Emphysema of lung ([facility]) Essential hypertension 01/10/2017 Hyperlipidemia Polysubstance abuse ([facility]) PUD (peptic ulcer disease) Thoracic aortic aneurysm ([facility]) TIA (transient ischemic attack) Tobacco Abuse Past Medical History Pertinent Negatives: Diagnosis Date Noted Diabetes mellitus ([facility]) 01/10/2017 Renal insufficiency 01/10/2017 Past Surgical History: Procedure Laterality Date EYE SURGERY GASTRIC ULCER PERFORATION REPAIR Social History Tobacco Use Smoking status: Current Every Day Smoker Packs/day: 0.25 Years: 39.00 Pack years: 9.75 Types: Cigarettes Smokeless tobacco: Never Used Tobacco comment: Trying to cut back, 8 cigs per day Substance Use Topics Alcohol use: Not Currently Comment: 1 beer per month Family History Problem Relation Age of Onset Diabetes Mother Diabetes Father Throat cancer Sister Heart attack Maternal Grandmother Prior to Admission medications Medication Sig Taking? Dose Freq albuterol (PROVENTIL) 2.5 mg /3 mL (0.083 %) nebulizer solution Take 3 mL (2.5 mg total) by nebulization every 4 (four) hours as needed for wheezing Dx: J44.0 . Yes 2.5 mg, Nebulization, Every 4 hours PRN, Dx: J44.0 albuterol 90 mcg/actuation inhaler Inhale 2 (two) puffs every 4 (four) hours as needed for wheezing Reasons: chronic obstructive pulmonary disease. Yes 2 puffs, Inhalation, Every 4 hours PRN Banophen 25 mg capsule Take 25 mg by mouth daily as needed for allergies . Yes 25 mg, Oral, Daily PRN budesonide-formoteroL (SYMBICORT) 160-4.5 mcg/actuation inhaler Inhale 2 (two) puffs 2 (two) times a day . Yes 2 puffs, Inhalation, 2 times daily buprenorphine-nalOXone (SUBOXONE) 8-[address] 1 tablet under the tongue every morning . Yes 1 tablet, Sublingual, Every morning cyclobenzaprine (FLEXERIL) 5 MG tablet Take 10 mg by mouth 2 (two) times a day as needed for muscle spasms . Yes 10 mg, Oral, 2 times daily PRN guaiFENesin (Mucinex) 1,200 mg Ta12 Take 1,200 mg by mouth every morning . Yes 1,200 mg, Oral, Every morning hydroCHLOROthiazide (HYDRODIURIL) 12.5 MG tablet Take 12.5 mg by mouth every morning . Yes 12.5 mg, Oral, Every morning loratadine (CLARITIN) 10 mg tablet Take 10 mg by mouth every morning . Yes 10 mg, Oral, Every morning montelukast (SINGULAIR) 10 mg tablet Take 1 (one) tablet (10 mg total) by mouth nightly . Yes 10 mg, Oral, Nightly nicotine (NICODERM CQ) 21 mg/[address] 1 patch on the skin daily as needed . Yes 1 patch, Transdermal, Daily PRN nicotine polacrilex (NICORETTE) 4 MG gum Apply 4 mg to the mouth or throat as needed for smoking cessation . Yes 4 mg, Mouth/Throat, As needed tiotropium bromide (Spiriva Respimat) 2.5 mcg/actuation Mist Inhale 2 (two) puffs daily . Yes 2 sprays, Inhalation, Daily azithromycin (ZITHROMAX) 250 MG tablet Take 2 tabs today then 1 tablet daily until gone. . Take 2 tabs today then 1 tablet daily until gone. acetaminophen (TYLENOL) 500 MG tablet Take 500 mg by mouth every 8 (eight) hours as needed . 500 mg, Oral, Every 8 hours PRN Eliquis 2.5 mg Tab No dose, route, or frequency recorded. guaiFENesin (MUCINEX) 600 mg 12 hr tablet Take 1 (one) tablet (600 mg total) by mouth every 12 (twelve) hours . 600 mg, Oral, Every 12 hours HYDROcodone-acetaminophen (NORCO) 5-325 mg per tablet No dose, route, or frequency recorded. omeprazole (PRILOSEC) 40 MG capsule No dose, route, or frequency recorded. Allergies Allergen Reactions Tylenol [Acetaminophen] Urinary tract infection Codeine Itching Including all derivatives - is well tolerated when taking Benadryl prophylaxis Review of Systems Constitution: (negative) HENT: (negative) Eyes: (negative) Respiratory: - As above Cardiovascular: (negative) - Exercise capacity: Less than 4 METS Gastrointestinal: - As above Genitourinary: - As above Musculoskeletal: - As above Skin: (negative) Neurological: - As above Hematological: (negative) Physical Exam BP (!) 151/105 Pulse 97 Temp 98.6 F (37 C) (Oral) Resp 18 Ht 6' 1 Wt 70.6 kg (155 lb 10.3 oz) SpO2 93% BMI 20.53 kg/m Constitutional: Conversant, in no acute distress Eyes: No Scleral Icterus, no ptosis. Pupils equal and round. Ears/nose/mouth/throat: Nose and ears appear normal. Oropharynx clear. Neck: Trachea midline, no goiter Respiratory: Clear to auscultation, increased respiratory effort which patient states is his baseline Cardiovascular: Regular rate and rhythm. No peripheral edema. Pulses palpable at the ankle. Gastrointestinal: Abdomen soft, nontender, no masses noted. Genitourinary: No suprapubic tenderness. Musculoskeletal: No calf tenderness with palpation, no digital cyanosis or clubbing. Skin: No rashes, Normal turgor and temperature. Neurologic: No focal deficits noted. Psychiatric: Appropriate affect, Alert and Oriented x 3. Data Preprocedure Sleep Apnea Assessment - No Risk (0/3) Sleep Apnea in the patient's Active Problem List or Medical History: no 1. History of apparent airway obstruction during sleep: (1 point for this category) Do you snore frequently, or snore loud enough to be heard through a closed door?: no Do you awaken from sleep with a choking sensation or have periods during sleep when someone has observed you pausing between breaths?: no 2. Somnolence of the patient: (1 point for this category) Do you find yourself frequently sleepy despite adequate hours of sleep the night before?: no Do you fall asleep easily while: watching TV, reading, riding in or driving a car?: no 3. Predisposing physician characteristics: (1 point for this category, 2 points if the BMI ? 40) BMI (Calculated): 20.5 Recent Results (from the past 62036 hours) ECHOCARDIOGRAM COMPLETE 11/02/2019 (Final) Status: Normal Narrative Transthoracic Echocardiogram Patient: KAROLINA Reynolds Rec#: [id number] (Age): 1960(59y) Height: 187(cm)/73(in) Study Date: 11/02/2019 Weight: 63.5(kg)/140(lb Room#: 56 BSA: [id number] Type: Inpatient Loc: [facility] Lab Sex: M Reading: Jeremiah Romero D.O. Referring: Lisa Howe Plow Mechanic: LATISHA DURAN History: Asthma. COPD. Hypertension. Diagnosis: ICD-10-PCS Syncope and collapse (R55) Syncope (780.2) CPT Code(s): ECHO COMPLETE W/ DOPPLER (83947) Study Quality The study quality is technically difficult. Summary: Patient identity verified and ID band on (pause and confirm). Current HP present on patient chart. Procedure explained and patient verified understanding. Conclusions: Normal LV chamber size and function, LVEF 55-60%. Normal RV chamber size and function. No significant valvular dysfunction. Findings Reason For Study: Syncope. Left Ventricle: The left ventricular chamber size is normal. The estimated ejection fraction is 55-60%. The diastolic filling pattern is consistent with impaired relaxation and normal LA pressure (Mild diastolic dysfunction). Mild concentric remodeling of the LV. Atypical septal motion, possibly due to a bundle branch block. Left Atrium: The left atrial chamber size is normal. Right Ventricle: The right ventricular cavity size is normal. The right ventricular global systolic function is normal. Right Atrium: The right atrial cavity size is normal. Aortic Valve: The aortic valve is not well visualized. There is no hemodynamically significant stenosis. There is no evidence of aortic regurgitation. Mitral Valve: The mitral valve leaflets appear normal. There is no evidence of mitral stenosis. There is no evidence of mitral regurgitation. Tricuspid Valve: The tricuspid valve leaflets are normal. There is no evidence of tricuspid valve regurgitation. Pulmonary artery pressure could not be estimated. Pulmonic Valve: The pulmonic valve appears grossly normal in structure and function. There is no pulmonic stenosis. There is no evidence of pulmonic regurgitation. Pericardium: The pericardium appears normal. Aorta: The aorta appears normal. Pulmonary Artery: The main pulmonary artery appears normal. Venous: The inferior vena cava appears normal. HR 73 BP 146/85 Measurements Chambers MM Name Value Normal Range AV cusp separation (MM) 2.1 cm none Chambers 2D Name Value Normal Range IVSd (2D) 1.06 cm none LVPWd (2D) 1.48 cm none IVS:LVPW ratio (2D) 0.72 ratio none LVIDd (2D) 3.85 cm none LVIDs (2D) 2.91 cm none LVIDd (2D) index 2.07 cm/m2 none LVIDs (2D) index 1.56 cm/m2 none LV FS (2D) 24.42 % none LV FS (Teichholz) (2D) 24.4 % none LV FS (cube) (2D) 24.4 % none EF Teichholz (2D) 49.17 % none LA dimension (AP) 2D 2.9 cm none LA dimension (2D) index 1.56 cm/m2 none Volumes/Mass Name Value Normal Range LV EDV SP 4CH (MOD) 90.6 ml none LV ESV SP 4CH (MOD) 28.6 ml none EF SP 4CH (MOD) 68.43 % none LV EDV SP 2CH (MOD) 59.8 ml none LV ESV SP 2CH (MOD) 22.2 ml none EF SP 2CH (MOD) 62.88 % none LV EDV BP 75.3 ml none LV ESV BP 25.1 ml none BP EF (MOD) 66.67 % none LV EDV BP index 40.47 ml/m2 none LV ESV BP index 13.49 ml/m2 none LV mass (2D) 170.2 g none LV mass (2D) index 91.48 g/m2 none Diastolic/Systolic Function Name Value Normal Range MV E-wave Vmax 0.63 m/sec none MV deceleration time 218 msec none MV A-wave Vmax 0.72 m/sec none MV E:A ratio 0.87 ratio (1.1 - 1.5) LV E:e' septal ratio 6.7 ratio none LV E:e' lateral ratio 7.3 ratio none Aortic Valve Name Value Normal Range AV Vmax 1.03 m/sec (1 - 1.7) AV peak gradient 4.24 mmHg (Less Than 36) LVOT diameter 2.1 cm (1.7 - 2.5) LVOT Vmax 0.91 m/sec (0.7 - 1.1) LVOT peak gradient 3 mmHg none DOI (Vmax) 0.88 ratio none SWETA (continuity Vmax) 3.05 cm2 none SWETA (continuity Vmax) index 1.64 cm2/m2 none Pulmonic Valve/Qp:Qs Name Value Normal Range PV Vmax 0.9 m/sec (0.6 - 0.9) PV peak gradient 3.23 mmHg none PV acceleration time 109 msec none Electronically Signed at 11/02/2019 16:05:30 by: Jeremiah Romero D.O. Recent Results (from the past 33292 hours) XR CHEST PA/AP 05/28/2020 (Final) Status: Normal Narrative EXAMINATION: ONE XRAY VIEW OF THE CHEST 05/28/2020 1:45 pm COMPARISON: 04/16/2020 HISTORY: ORDERING SYSTEM PROVIDED HISTORY: SOB, h/o COPD, PNA, recent COVID (dx 04/23/20, then resolved); TECHNOLOGIST PROVIDED HISTORY: Illness/Other Acuity: Unknown Reason for Exam: SOB, h/o COPD, PNA, recent COVID (dx 04/23/20, then resolved) Type of Encounter: Initial Additional signs and symptoms: unk FINDINGS: Cardiomediastinal silhouette is stable. Improved bilateral airspace opacities. No pleural effusion or pneumothorax. No gross bony abnormality. Impression Improved bilateral airspace opacities. Workstation ID: [id number] documented in this encounter Assessment and Plan 1. Preop examination Medically acceptable risk for elective major procedure with risk factors as outlined below and pending review of the following ordered tests: Letter of pulmonary suitability and completion of pulmonary work-up from patient's 06/14/2020 visit with nurse practitioner Rosalia. 2. Hydrocele, unspecified hydrocele type Primary management per surgical team. Patient provided instructions on preoperative management of medications including withholding Aspirin, NSAIDS, and specific Herbal Supplements. 3. Preop cardiovascular exam Patient denies any active cardiac conditions and has a revised cardiac risk index of 1. Patient denied any current cardiac symptoms and has less than 4 METS of functional capacity and is at acceptable cardiac risk for elective surgery based on 2014 ACC/AHA guidelines. TTE performed 11/02/2019 revealed normal left ventricular chamber size and function with an ejection fraction of 55 to 60% EKG performed 05/28/2020 read independently today reveals sinus tachycardia biatrial enlargement nonspecific T wave abnormality DVT prophylaxis deferred to surgical service. Recommend utilization of 2016 ACCP guidelines. Apfel score is 1. (Score/Risk of PONV = 0/10%, 1/21%, 2/39%, 3/61%, 4/79%). This score has been externally validated. 4. Chronic obstructive pulmonary disease, unspecified COPD type (HCC) Patient with recent signs and symptoms of COPD exacerbation and decompensated pulmonary function. Will require pulmonary clearance for further risk stratification and optimization prior to elective surgery. 5. Multifocal pneumonia patient's nurse practitioner ordered a CT scan 06/14/2020 as her most recent chest x-ray 05/28/2020 revealed improved by lateral airspace opacities from his pneumonia which he was hospitalized for April 2020 6. History of acute respiratory failure patient has had multiple hospitalizations including March 2020, April 2020 and emergency room visit 05/28/2020 for COPD exacerbations. Patient saw the nurse practitioner Daniela at the pulmonology office 06/14/2020 and PFTs and a CT scan were ordered. Recommend patient complete this work-up and we will request a letter of pulmonary suitability for the planned procedure from his electrical tester. 7. COVID-19 virus infection patient developed COVID-19 after he was discharged to an [facility] following his hospitalization in April 2020 8. History of sepsis patient was hospitalized with sepsis and acute respiratory failure April 2020 9. Essential hypertension BP Readings from Last 1 Encounters: 06/19/20 (!) 151/105 Blood pressure well controlled and optimized for surgery. Recommend continuation of current blood pressure medications in the perioperative period. 10. Allergic state, subsequent encounter patient advised to continue Banophen and Singulair throughout the perioperative period. 11. Gastroesophageal reflux disease without esophagitis Well controlled with PPI/[id number] which should be dosed perioperatively on usual home schedule. 12. Primary osteoarthritis of right hip patient advised to hold NSAIDs in anticipation of planned procedure 13. Thoracic aortic aneurysm, without rupture (HCC) I do not see recent imaging study. CT scan which was ordered 06/14/2020 by nurse practitioner Rosalia for evaluation 14. TIA (transient ischemic attack) this occurred greater than 4 years ago 15. History of thoracoabdominal aortic aneurysm (TAAA) patient has not had a recent imaging study however a CT scan has been ordered by his nurse practitioner at the pulmonology office. Recommend perform this prior to planned procedure 16. Tobacco Abuse Patient currently not manifesting any signs or symptoms of decompensated pulmonary disease and has been counseled on smoking cessation. Patient was advised of potential perioperative adverse effects associated with smoking such as increased risk for post-operative pulmonary complications, poor wound healing, and increased risk for infections. Recommend aggressive pulmonary toilet and lung expansion modalities including deep breathing and IS after surgery and perioperative nebulizers as needed. 17. Opioid use disorder (HCC) patient advised to hold Suboxone 72 hours prior to planned procedure 18. Crack Cocaine Use patient has a history of 35-year crack cocaine use but has been in recovery since 2018 Chief Complaint Patient presents with Pre-operative Medical Risk Stratification History of Present Illness Wolf Turcios is a 60 y.o. male who presents for preoperative medical risk stratification consult at the request of Leonardo Perla MD prior to HYDROCELECTOMY on 06/26/20. This patient has been diagnosed with hydrocele, unspecified hydrocele type (N43.3) and the above procedure has been recommended and scheduled for 06/26/2020. Patient surgery has been rescheduled 3 times due to illness. Patient was hospitalized 03/28/2020 with acute respiratory failure with hypoxia and COPD exacerbation. He was again hospitalized 04/13 through 04/22/2020 with acute respiratory failure sepsis and and pneumonia and was discharged to an E[facility] where he developed COVID-19 in April 2020. Patient was seen in the emergency room 05/28/2020 with a COPD exacerbation and treated with antibiotics. Patient saw his pulmonary nurse practitioner Daniela 06/14/2020. At that time chest x-ray from 05/28/2020 which showed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 12/14/2017 NA 137 12/14/2017 K 4.3 12/14/2017 CL 102 12/14/2017 BUN 14 12/14/2017 CREATININE 0.69 12/14/2017 in this encounter Associated Order(s): ECG 12-LEAD Repeat EKG Date/Time: 01/10/2018 3:07 AM Performed by: ELIJAH REIS Authorized by: ELIJAH REIS Interpreted by ED attending physician Rhythm: sinus rhythm BPM: 81 Conduction: conduction normal normal DC interval normal QT interval Other findings: LVH Comments: No acute ST segment elevation Pt given AVS and verbalizing understanding of discharge instructions including medication administration. Pt requests cab voucher at this time, denies further needs. I personally interviewed the patient. I personally examined the patient. I discussed the patient with MAJOR GIFTS DIRECTOR/PA. I agree with the MAJOR GIFTS DIRECTOR/PA treatment plan. I agree with the MAJOR GIFTS DIRECTOR/PA plan of care. I agree with the MAJOR GIFTS DIRECTOR/PA dispo as documented. 57-year-old male presents emergency department with chest pain and shortness of breath. He tells me symptoms started at rest while he was watching his grandson play softball. On my physical examination he is nontoxic. He has some wheezing on auscultation of lungs. Heart sounds are clear. Laboratory radiographic evaluation reviewed. I reviewed this patient's chart in [facility] [place]. He has a CCTA from less than 1 month ago that shows clean coronary arteries. Here in the emergency department he was given nebulizer treatment with improvement in his symptoms. He self-administered aspirin prior to arrival. Initial troponin and repeat troponin below the reference range. Repeat after 4 hours. At this point he is symptom-free. Repeat EKG shows no acute ST segment elevation. Plan at this point will be for discharge. I did reinforce very strict emergency department return precautions, he expressed clear verbal understanding of all. He discharged ambulatory in stable condition. . . Pt transported to CT scan. Formatting of this note may be different from the original. ED PROVIDER NOTE [facility] EMERGENCY DEPARTMENT NAME: Wolf Turcios AGE: 57 y.o. : 1960 VISIT DATE: 01/09/2018 CSN: [id number] PCP: Physician No Chief Complaint Patient presents with Chest Pain Shortness of Breath Patient is a 57-year-old male with a past medical history of asthma, COPD, hypertension who presents emergency department the chief complaint of chest pain. He states he is watching his grandson play softball when he had a sudden onset of shortness of breath and chest pain. Patient states his pain is midsternal. He describes this as a sharp sensation. Patient states his pain radiates to his neck. He states he feels that he has pins and needles in his chest. Patient states he has a history of COPD and asthma. He states he does currently smoke cigarettes. Patient denies any cocaine use. Patient states he did feel lightheaded with the onset of symptoms. He denies any nausea or vomiting. Patient denies any diaphoresis with the onset. Patient states he has a productive cough for the past few days. He is also endorsing bilateral lower leg edema. He states this is been present for the past 3 days. He denies any history of CHF. Patient states that he has been noticing is having exertional shortness of breath. Patient denies any orthopnea. He is endorsing PND. Patient denies a history of LA. He is endorsing a past medical history of hypertension hyperlipidemia. He denies any diabetes. Patient denies a family history of LA. Patient had a coronary CT done on 12/14/17 which was normal. 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 Patient denies any abdominal pain. He denies any fevers or chills. Past Medical History: Diagnosis Date Asthma COPD (chronic obstructive pulmonary disease) (HCC) Emphysema/COPD (HCC) Essential hypertension 01/10/2017 Past Surgical History: Procedure Laterality Date GASTRIC ULCER PERFORATION REPAIR Family History Problem Relation Age of Onset Diabetes Mother Diabetes Father Throat cancer Sister Heart attack Maternal Grandmother Social History Social History Marital status: Spouse name: N/A Number of children: N/A Years of education: N/A Occupational History Not on file. Social History Main Topics Smoking status: Current Every Day Smoker Packs/day: 0.50 Years: 40.00 Types: Cigarettes Smokeless tobacco: Never Used Alcohol use No Comment: occ Drug use: Yes Types: Cocaine Sexual activity: Not on file Other Topics Concern Not on file Social History Narrative No narrative on file Discharge Medication List as of 01/10/2018 12:55 AM CONTINUE these medications which have NOT CHANGED Details amLODIPine (NORVASC) 5 MG tablet Take 5 mg by mouth daily., Historical Med aspirin 81 MG EC tablet Take 1 (one) tablet (81 mg total) by mouth daily., Starting Thu12/29/2017, Normal atorvastatin (LIPITOR) 20 MG tablet Take 1 (one) tablet (20 mg total) by mouth nightly., Starting Thu12/29/2017, Normal buPROPion (WELLBUTRIN SR) 150 MG 12 hr tablet Take one tablet at bedtime for the first 5 nights then increase to one tablet in the morning and one in the evening.., Normal gabapentin (NEURONTIN) 400 MG capsule Take 1 (one) capsule (400 mg total) by mouth every 8 (eight) hours (Days supply per fill: 30)., Starting Thu12/29/2017, Normal ipratropium-albuterol (DUO-NEB) 0.5-2.5 mg/3 ml nebulizer Take 3 mL by nebulization every 4 to 6 hours as needed for wheezing or shortness of breath., Starting Thu12/29/2017, Until Thu12/29/2018, Normal lisinopril (PRINIVIL,ZESTRIL) 5 MG tablet Take 1 (one) tablet (5 mg total) by mouth daily., Starting Thu12/29/2017, Until Thu12/29/2018, Normal pantoprazole (PROTONIX) 40 MG tablet Take 1 (one) tablet (40 mg total) by mouth 2 (two) times a day., Starting Thu12/29/2017, Normal umeclidinium (INCRUSE ELLIPTA) 62.5 mcg/actuation DsDv Inhale 62.5 mcg daily., Historical Med VENTOLIN HFA 90 mcg/actuation inhaler Inhale 2 (two) puffs every 6 (six) hours as needed for wheezing or shortness of breath., Starting Thu12/29/2017, Until Thu01/28/2018, Normal tiotropium bromide (SPIRIVA RESPIMAT) 2.5 mcg/actuation Mist Inhale 2 sprays daily., Starting Thu12/29/2017, Normal Allergies Allergen Reactions Codeine Itching Review of Systems Constitutional: Negative for chills, fatigue and fever. HENT: Negative for congestion, rhinorrhea, sinus pain, sinus pressure, sneezing and sore throat. Eyes: Negative for photophobia and visual disturbance. Respiratory: Positive for shortness of breath and wheezing. Cardiovascular: Positive for chest pain and leg swelling. Gastrointestinal: Negative for abdominal pain, constipation, diarrhea, nausea and vomiting. Endocrine: Negative for polyuria. Genitourinary: Negative for dysuria, frequency, hematuria and urgency. Musculoskeletal: Negative for back pain and neck pain. Skin: Negative. Allergic/Immunologic: Negative. Neurological: Negative for headaches. Hematological: Negative. Psychiatric/Behavioral: Negative for behavioral problems and confusion. Positives and pertinent negatives as per HPI. All other systems were reviewed and are negative. Patient Vitals for the past 24 hrs: BP Temp Pulse Resp SpO2 01/10/18 0101 104/76 - 87 14 93 % 01/10/18 0030 (!) 103/57 - 83 (!) 19 94 % 01/10/18 0001 110/65 - 82 (!) 19 94 % 01/09/18 2208 (!) 123/58 - 86 (!) 24 96 % 01/09/18 2137 125/86 - 77 16 97 % 01/09/182008 107/70 - 75 15 100 % 01/09/182006 - - - - 98 % 01/09/18 1910 (!) 124/96 97.4 F (36.3 C ) 76 (!) 23 97 % Physical Exam Constitutional: He is oriented to person, place, and time. He appears well- developed and well-nourished. HENT: Head: Normocephalic and atraumatic. Eyes: Conjunctivae and EOM are normal. Neck: Normal range of motion. Neck supple. Cardiovascular: Normal rate and regular rhythm. Pulmonary/Chest: Effort normal. He has wheezes. Abdominal: Soft. Musculoskeletal: Normal range of motion. Neurological: He is alert and oriented to person, place, and time. Skin: Skin is warm and dry. Capillary refill takes less than 2 seconds. Bilateral lower leg edema Psychiatric: He has a normal mood and affect. His behavior is normal. Nursing note and vitals reviewed. Laboratory & Radiographic Imaging (if done): Results for orders placed or performed during the hospital encounter of 01/09/18 Lavender Top Result Value Ref Range Extra Tube Hold for add-ons. Mint Green Top Result Value Ref Range Extra Tube Hold for add-ons. Gold Top Result Value Ref Range Extra Tube Hold for add-ons. Light Blue Top Result Value Ref Range Extra Tube Hold for add-ons. Munoz Top Result Value Ref Range Extra Tube Hold for add-ons. BMP Result Value Ref Range Sodium 140 135 - 145 mmol/L Potassium 3.9 3.5 - 5.1 mmol/L Chloride 104 98 - 108 mmol/L Bicarbonate 26 21 - 32 mmol/L Anion Gap 14 10 - 20 mmol/L Glucose 110 (H) 65 - 99 mg/dL BUN 12 8 - 25 mg/dL Creatinine 1.06 0.50 - 1.30 mg/dL eGFR 78 >=60 mL/min/1.73 m2 BUN/Creatinine Ratio 11.3 10.0 - 20.0 Calcium 8.5 8.4 - 10.2 mg/dL Troponin Result Value Ref Range Troponin T <0.010 <0.040 ng/mL NT Pro BNP Result Value Ref Range NT-Pro BNP <50 0 - 300 pg/mL Urinalysis Result Value Ref Range Color, Urine Yellow Colorless, Yellow Clarity, Urine Clear Clear Specific [place] 1.016 1.005 - 1.025 pH, Urine 6.0 5.0 - 7.0 Protein, Urine Negative Negative mg/dL Glucose, Urine Negative Negative mg/dL Ketones, Urine Negative Negative mg/dL Bilirubin, Urine Negative Negative Urobilinogen, Urine >=4.0 (A) <2.0 mg/dL Blood, Urine Negative Negative Nitrite, Urine Negative Negative Leukocyte Esterase, Urine Negative Negative WBCs, Urine <1 0 - 5 /hpf RBCs, Urine <1 0 - 3 /hpf Bacteria, Urine None Seen None Seen /hpf Mucus, Urine Rare None Seen, Rare /lpf Blood Gas, Venous with Full Panel Result Value Ref Range pH, Venous 7.37 7.32 - 7.42 pCO2, Edison 45.9 41.0 - 51.0 mm Hg pO2, Edison 48 (H) 25 - 40 mm Hg HCO3, Edison 26.0 24.0 - 28.0 mmol/L Base Excess, Edison 0.9 -2.0 - 2.0 O2 Sat, Edison 83.2 % Hemoglobin, Blood Gas 12.5 (L) 13.5 - 18.0 g/dL Hematocrit, Calculated 38.4 (L) 41.0 - 53.0 % O2 Hb 79.5 (L) 94.0 - 98.0 % Carboxyhemoglobin 4.0 (H) 0.0 - 1.5 % of total Hb Methemoglobin 0.6 0.0 - 2.0 % Sodium 139 135 - 145 mmol/L Potassium 3.7 3.5 - 5.1 mmol/L Ionized Calcium 4.5 4.5 - 5.3 mg/dL Glucose 107 (H) 65 - 99 mg/dL Lactic Acid 1.3 0.6 - 2.0 mmol/L Troponin Result Value Ref Range Troponin T <0.010 <0.040 ng/mL CBC Auto Differential Result Value Ref Range WBC 4.99 4.50 - 11.00 K/mcL RBC 3.74 (L) 4.50 - 5.90 M/mcL Hemoglobin 12.3 (L) 13.5 - 17.5 g/dL Hematocrit 36.9 (L) 41.0 - 53.0 % MCV 98.7 80.0 - 100.0 fL MCH 32.9 26.0 - 34.0 pg MCHC 33.3 31.0 - 37.0 g/dL Platelets 200 150 - 400 K/mcL RDW - CV 13.8 11.6 - 14.8 % MPV 9.7 9.0 - 15.5 fL Neutrophils 33.9 % Lymphocytes 33.9 % Monocytes 15.6 % Eosinophils 15.2 % Basophils 1.2 % IG Percent 0.20 % Neutrophils Abs 1.69 (L) 1.70 - 7.00 K/mcL Lymphocytes Abs 1.69 0.90 - 4.00 K/mcL Monocytes Abs 0.78 0.30 - 0.90 K/mcL Eosinophils Abs 0.76 (H) 0.00 - 0.50 K/mcL Basophils Abs 0.06 0.00 - 0.30 K/mcL IG Absolute 0.01 0.00 - 0.30 K/mcL Nucleated RBC 0.0 % Nucleated RBC Abs 0.00 0.00 - 0.00 K/mcL XR Chest 1 View Final Result No acute cardiopulmonary process. Workstation ID: [id number] CT Dissection With Pelvis Final Result 1. No aortic dissection or aneurysm identified. No significant stenosis or occlusion. No acute findings identified within the chest, abdomen and pelvis. 2. Moderate pulmonary emphysema Workstation ID: [id number] Ultrasound Duplex Venous Legs BILATERAL Procedures MDM Number of Diagnoses or Management Options Shortness of breath: Diagnosis management comments: Patient is a 57-year-old male with a past medical history of asthma, COPD, hypertension who presents emergency department the chief complaint of chest pain. Patient states he had a sudden onset of shortness of breath and chest pain while he was watching a softball game. He describes this as a sharp sensation. He states it is midsternal. Patient states his pain radiates to his neck. Patient is also endorsing bilateral lower leg edema. He denies a history of CHF. Patient is endorsing PND. He has a history of a descending thoracic aneurysm. Patient was recently seen in the emergency department and had a coronary CT done on 12/14/17 which was normal. Patient has a history of COPD and asthma. He states he is currently smoking 6 cigarettes a day. Patient states he feels like he is wheezing. Patient had 4 aspirin prior to arrival. Patient's EKG is nonischemic. His CBC shows a WBC of 4.99, hemoglobin of 12.3, and hematocrit of 36.9. Patient's BMP is unremarkable. His BNP is negative. Patient's troponin is negative. Patient's urinalysis unremarkable. His bilateral Dopplers are negative. Patient's dissection study shows no aortic dissection or aneurysm identified. Moderate pulmonary emphysema. Patient was given duo nebs with improvement of his symptoms. Serial troponin is negative. Chest x- ray shows no acute cardia pulmonary process. Patient's symptoms are improved in the emergency department. He is instructed to follow-up with the transitional care clinic. Patient being sent home with a short course of steroids. He is instructed to use his inhaler measure at home. Patient is nontoxic and well appearing. They were given strict return precautions. Patient was instructed to return to the emergency department with any new or worsening symptoms or any concern they may have. . . Clinical Impression: SNOMED CT(R) 1. Shortness of breath DYSPNEA ED Disposition ED Disposition Condition Comment Discharge Stable Wolf Turcios discharged to home/self care in stable condition. Follow-up Information 1. [facility]. Specialty: Primary Care [address] [place] [id number] Contact information for after-discharge care Follow-up information has not been specified. Discharge Medication List as of 01/10/2018 12:55 AM START taking these medications Details predniSONE (DELTASONE) 20 MG tablet Take 2 (two) tablets (40 mg total) by mouth daily for 5 days., Starting Thu01/10/2018, Until Thu01/15/2018, Print Nlisa Quigley PA-C 01/10/18 0237 Associated Order(s): ECG 12-LEAD ECG 12 Lead Date/Time: 01/09/2018 7:17 PM Performed by: ELIJAH REIS Authorized by: ELIJAH REIS Interpreted by ED attending physician Rhythm: sinus rhythm BPM: 76 Conduction: conduction normal normal DC interval normal QT interval Clinical impression: normal ECG Comments: No acute ST segment elevation Pt arrives by EMS after playing with his grandson and getting short of breath. Pt also endorses pain in his chest at that time described as pins and needles. Pt has hx of COPD. Denies CHF, states his aorta is swollen. Pt is alert and oriented, respirs even and unlabored. Pt states he took 4 baby aspirins at home and denies any current symptoms. Bed: 58 Expected date: Expected time: Means of arrival: Comments: Medic 14 SARAH Venegas this encounter Problem: Breathing Pattern - Ineffective Goal: Effective breathing pattern Outcome: Met Note: 1. Assess respiratory status through observation of chest for excursion, breath sounds, cough effort & sputum production, and respiratory rate. 2. Notify physician of clinical changes. Match home medication regimen CAT B Medications: IP Meds - Nasal and Inhaled (From admission, onward) Frequency albuterol (PROVENTIL) 2.5 mg /3 mL (0.083 %) nebulizer solution 2.5 mg Every 6 hours PRN (RT) budesonide-formoteroL (SYMBICORT) 160-4.5 mcg/actuation inhaler 2 puff 2 times daily (RT) tiotropium (SPIRIVA) inhalation capsule 18 mcg Daily (RT) Orders: Associated Order(s): ECG 12 Lead ECG 12 Lead Date/Time: 11/02/2019 12:23 PM Performed by: Angelika Oswald MD Authorized by: Angelika Oswald MD Interpreted by ED attending physician Comparison: compared with previous ECG Comparison to previous EC08/2019 Rhythm comments: NSR BPM: 75 Conduction comments: Normal axis and intervals;QTc 410; NOLAN Clinical impression: abnormal ECG Comments: No ST changes with new TWI in III and AVF; Q-wave in III; neg STEMI; no criteria for WPW, Brugada, HOCM or ARVD documented in this encounter Associated Order(s): ECG 12 Lead ECG 12 Lead Date/Time: 01/14/2020 12:01 PM Performed by: Teresa Anderson MD Authorized by: Teresa Anderson MD Interpreted by ED attending physician Comparison: compared with previous ECG from 11/02/2019 Comparison to previous ECG: Prior T wave inversion in lead III and aVF are now reversed, Rhythm: sinus rhythm BPM: 80 ST Segments: ST segments normal T Waves: T waves normal DC Interval: 150 QRS Interval: 84 QT Interval: 412 Clinical impression: normal ECG Comments: There is a wandering baseline present in leads II, III and aVF aVL, likely due to patient movement. The remainder the patient's EKG remains unremarkable. documented in this encounter IV Fluids stopped: yes IV removed: yes Chart checked for prescriptions, home medications/security items: Yes AVS reviewed with patient: yes Including new/changed medications, signs/symptoms, & when to call 911: Yes Medications removed from med drawer & med drawer locked: yes Does patient have transportation for discharge: yes Walking RA SpO2 93% Patient oriented to Observation Unit: Yes Patient oriented to room: Yes Plan of care reviewed with patient: yes Extended Emergency Contact Information Primary Emergency Contact: Day Turcios [facility] Relation: Child Secondary Emergency Contact: DAOLINWOODMALINA Mobile Relation: Friend Primary Care Physician: Karma Mark CNP Preferred Pharmacy: [facility] Does this match pharmacy listed with [facility]: Yes Plan for discharge reviewed: Yes How will patient get home: Cab Reviewed call light process: Yes [facility] completed: Yes Visitor information entered: Yes Associated Order(s): EKG 12-lead EKG 12-lead Date/Time: 04/11/2020 9:56 PM Performed by: Maxime Liz MD Authorized by: Maxime Liz MD Interpreted by ED attending physician Rhythm: sinus rhythm and sinus tachycardia BPM: 101 Conduction: conduction normal ST Segments: ST segments normal T Waves: T waves normal Other: no other findings Clinical impression: normal ECG and sinus tachycardia Split/shared visit note and ED attestation: I personally interviewed the patient. I personally examined the patient. I discussed the patient with MAJOR GIFTS DIRECTOR/PA. I agree with the MAJOR GIFTS DIRECTOR/PA treatment plan. I agree with the MAJOR GIFTS DIRECTOR/PA plan of care. I agree with the MAJOR GIFTS DIRECTOR/PA dispo as documented. Patient presents emerged from complaining of shortness of breath. He is homeless has a history of COPD. On my evaluation he has rhonchorous respirations that are decreased with some wheezing. He is coughing up what looks to be truly purulent material. His Covid swab and influenza swab were negative. Concern for COPD exacerbation and infectious etiology. He will require neb treatments and IV antibiotics. He is not stable for discharge. . documented in this encounter This nurse attempted to call [facility] for report but was unsuccessful. Facility answered the phone and put me on hold for several minutes and phone call was disconnected. Two attempts made and was unsuccessful each time. Problem: Breathing Pattern - Ineffective Goal: Effective breathing pattern Outcome: Partially Met Problem: Pain Goal: Manage acute pain Outcome: Partially Met Painmeds available Problem: Breathing Pattern - Ineffective Goal: Effective breathing pattern Outcome: Partially Met Denies shortness of breath at this time. Monitor O2 sats Problem: Breathing Pattern - Ineffective Goal: Effective breathing pattern Outcome: Partially Met Problem: Breathing Pattern - Ineffective Goal: Effective breathing pattern 04/19/20202233 by Nidia Heredia CRT Outcome: Not Met Note: 1. Assess respiratory status through observation of chest for excursion, breath sounds, cough effort & sputum production, and respiratory rate. 2. Notify physician of clinical changes. Continue current therapy 04/19/20201929 by Nidia Heredia CRT Outcome: Not Met Note: 1. Assess respiratory status through observation of chest for excursion, breath sounds, cough effort & sputum production, and respiratory rate. 2. Notify physician of clinical changes. Continue current therapy Medications: IP Meds - Nasal and Inhaled (From admission, onward) Frequency albuterol (PROVENTIL) 2.5 mg /3 mL (0.083 %) nebulizer solution 2.5 mg (albuterol-ipratropium (DUONEB) and albuterol (PROVENTIL) nebulizer) Every 2 hour PRN (RT) albuterol (PROVENTIL) 2.5 mg /3 mL (0.083 %) nebulizer solution 2.5 mg Every 4 hours scheduled (RT) budesonide-formoteroL (SYMBICORT) 160-4.5 mcg/actuation inhaler 2 puff 2 times daily tiotropium bromide (SPIRIVA RESPIMAT) 2.5 mcg/actuation inhaler 2 puff Daily (RT) Orders: Respiratory Orders (From admission, onward) Start Ordered 04/18/20 0923 Nasal cannula oxygen (Oxygen Panel (Low Flow)) Continuous Comments: Titrate UP as needed. 1. For patients that can meet SpO2 goals, place on a nasal cannula at L of flow as indicated by the range above, with the lowest flow to achieve the SpO2 goal. 2. If the SpO2 goal is not met by a nasal cannula, contact RT to place patient on a Venturi mask, with the lowest flow to achieve the SpO2 goal. Titrate DOWN as soon as able. Notify physician if oxygen increases by 3L or 10% FiO2. Question Answer Comment Goal SpO2 Taper O2 with goal O2 sats > 88% Minimum O2 flow, in Liters Per Minute: 0 Maximum O2 flow, in Liters Per Minute 6 Release to patient Immediate 04/18/2092104/17/20934 Evaluate for home O2 Once Question: Release to patient Answer: Immediate 04/17/20 0934 04/16/20 1800 Incentive spirometry Every 2 hours while awake (RT) Question: Release to patient Answer: Immediate 04/16/20 1603 04/16/20 1800 Vibratory PEP therapy Every 2 hours while awake (RT) Question: Release to patient Answer: Immediate 04/16/20 1603 04/14/20 0232 Pulse oximetry continuous Continuous Question: Release to patient Answer: Immediate 04/14/20 0231 Problem: Breathing Pattern - Ineffective Goal: Effective breathing pattern Outcome: Not Met Note: 1. Assess respiratory status through observation of chest for excursion, breath sounds, cough effort & sputum production, and respiratory rate. 2. Notify physician of clinical changes. Continue current therapy Medications: IP Meds - Nasal and Inhaled (From admission, onward) Frequency albuterol (PROVENTIL) 2.5 mg /3 mL (0.083 %) nebulizer solution 2.5 mg (albuterol-ipratropium (DUONEB) and albuterol (PROVENTIL) nebulizer) Every 2 hour PRN (RT) albuterol (PROVENTIL) 2.5 mg /3 mL (0.083 %) nebulizer solution 2.5 mg Every 4 hours scheduled (RT) budesonide-formoteroL (SYMBICORT) 160-4.5 mcg/actuation inhaler 2 puff 2 times daily tiotropium bromide (SPIRIVA RESPIMAT) 2.5 mcg/actuation inhaler 2 puff Daily (RT) Orders: Respiratory Orders (From admission, onward) Start Ordered 04/18/20922 Nasal cannula oxygen (Oxygen Panel (Low Flow)) Continuous Comments: Titrate UP as needed. 1. For patients that can meet SpO2 goals, place on a nasal cannula at L of flow as indicated by the range above, with the lowest flow to achieve the SpO2 goal. 2. If the SpO2 goal is not met by a nasal cannula, contact RT to place patient on a Venturi mask, with the lowest flow to achieve the SpO2 goal. Titrate DOWN as soon as able. Notify physician if oxygen increases by 3L or 10% FiO2. Question Answer Comment Goal SpO2 Taper O2 with goal O2 sats > 88% Minimum O2 flow, in Liters Per Minute: 0 Maximum O2 flow, in Liters Per Minute 6 Release to patient Immediate 04/18/2092104/17/20 0935 Evaluate for home O2 Once Question: Release to patient Answer: Immediate 04/17/20 0934 04/16/20 1800 Incentive spirometry Every 2 hours while awake (RT) Question: Release to patient Answer: Immediate 04/16/20 1603 04/16/20 1800 Vibratory PEP therapy Every 2 hours while awake (RT) Question: Release to patient Answer: Immediate 04/16/20 1603 04/14/20 0232 Pulse oximetry continuous Continuous Question: Release to patient Answer: Immediate 04/14/20 0231 PHYSICAL THERAPY VISIT VARIANCE NOTE Attempted to see patient at this time, but unable secondary to: PT Visit Variance: Refused(citing fatigue, and already up multiple times). Will follow up as appropriate. Problem: Pain Goal: Achievement of comfort function goal Outcome: Met Problem: Breathing Pattern - Ineffective Goal: Effective breathing pattern Outcome: Partially Met Note: 1. Assess respiratory status through observation of chest for excursion, breath sounds, cough effort & sputum production, and respiratory rate. 2. Notify physician of clinical changes. Continue current therapy Medications: IP Meds - Nasal and Inhaled (From admission, onward) Frequency albuterol (PROVENTIL) 2.5 mg /3 mL (0.083 %) nebulizer solution 2.5 mg (albuterol-ipratropium (DUONEB) and albuterol (PROVENTIL) nebulizer) Every 2 hour PRN (RT) albuterol (PROVENTIL) 2.5 mg /3 mL (0.083 %) nebulizer solution 2.5 mg Every 4 hours scheduled (RT) budesonide-formoteroL (SYMBICORT) 160-4.5 mcg/actuation inhaler 2 puff 2 times daily tiotropium bromide (SPIRIVA RESPIMAT) 2.5 mcg/actuation inhaler 2 puff Daily (RT) Orders: Respiratory Orders (From admission, onward) Start Ordered 04/18/20 09 Nasal cannula oxygen (Oxygen Panel (Low Flow)) Continuous Comments: Titrate UP as needed. 1. For patients that can meet SpO2 goals, place on a nasal cannula at L of flow as indicated by the range above, with the lowest flow to achieve the SpO2 goal. 2. If the SpO2 goal is not met by a nasal cannula, contact RT to place patient on a Venturi mask, with the lowest flow to achieve the SpO2 goal. Titrate DOWN as soon as able. Notify physician if oxygen increases by 3L or 10% FiO2. Question Answer Comment Goal SpO2 Taper O2 with goal O2 sats > 88% Minimum O2 flow, in Liters Per Minute: 0 Maximum O2 flow, in Liters Per Minute 6 Release to patient Immediate 04/18/20 0922 04/17/20 0935 Evaluate for home O2 Once Question: Release to patient Answer: Immediate 04/17/20 0934 04/16/20 1800 Incentive spirometry Every 2 hours while awake (RT) Question: Release to patient Answer: Immediate 04/16/20 1603 04/16/20 1800 Vibratory PEP therapy Every 2 hours while awake (RT) Question: Release to patient Answer: Immediate 04/16/20 1603 04/14/20 0232 Pulse oximetry continuous Continuous Question: Release to patient Answer: Immediate 04/14/20 0231 Problem: Breathing Pattern - Ineffective Goal: Effective breathing pattern Outcome: Not Met Pt O2 Sat is 96% on 3 L of O2, but drop to 87% at resting. Problem: Breathing Pattern - Ineffective Goal: Effective breathing pattern Outcome: Partially Met Associated Problem(s): Bilateral hip pain Patient has been following with his PCP and the plan is for hip surgery. He has been prescrived vicodin since October 2019 and end of feb he lost medication so his provider started on him on suboxone to prevent any withdrawals and help with pain. He denies any misuse of opioids. He discarded all buprenorphine because it caused nausea and vomiting. He denies any withrawals from opioids. Associated Problem(s): Cigarette nicotine dependence without complication Denies any current cravings. He is smoking 5 cig a day in the past smoked 1-2 PPD since teenage years. He has tried various NRT. Discussed about chantix not ready now but will discuss with his PCP. Associated Problem(s): Substance use disorder May be primary diagnosis. UDS positive for cocaine, buprenorphine, fentanyl, opiates Pt with long h/o substance use disorder. Advised cessation. Pt's motivation for abstinence is unclear. Addiction Med has been consulted. Defer to their service for treatment recommendations Associated Problem(s): Adjustment disorder with depressed mood Pt with no h/o diagnosis of mood disorder presented with elevated depression score on admission. R/O substance-induced mood disorder Pt is endorsing depressed mood but states these symptoms are chronic and longstanding. He does report some increase d/t current medical problems He denies any suicidal ideation. He declines to consider any treatment for depression and his symptoms include no acute features that warrant urgent or inpatient treatment Will ask /[facility] to provide pt with mental health resources for out-patient f/u if he would decide to pursue. Problem: Breathing Pattern - Ineffective Goal: Effective breathing pattern Outcome: Partially Met CONSULT NOTE (Addiction Medicine) Patient Name: Wlof Turcios Admit Date: MR #: [id number] : 1960 Physicians: Karma Mark, LAM (Family); No ref. provider found (referring) Addiction Medicine Sign-Off Consulting Attending: Dr. Chou Diagnosis: Cocaine use disorder Plan: Follow up with PCP/ Follow-up: AVS updated with Alexia information when he decides to go. Medications: Patient reports he already has narcan at home Discharge instructions updated with appropriate follow-up. Addiction Medicine service will sign off at this time. Please call [phone] for questions/concerns and we can determine if new consult needs placed for further evaluation. Assessment and Plan: Cigarette nicotine dependence without complication Assessment & Plan Denies any current cravings. He is smoking 5 cig a day in the past smoked 1-2 PPD since teenage years. He has tried various NRT. Discussed about chantix not ready now but will discuss with his PCP. Bilateral hip pain Assessment & Plan Patient has been following with his PCP and the plan is for hip surgery. He has been prescrived vicodin since October 2019 and end of feb he lost medication so his provider started on him on suboxone to prevent any withdrawals and help with pain. He denies any misuse of opioids. He discarded all buprenorphine because it caused nausea and vomiting. He denies any withrawals from opioids. Substance use disorder history (please also see social history section for more details on TANESHA history and other relevant social history): Problem Cocaine Use Disorder (Hcc) Using cocaine for more than 30 years at times heavily 15-20 times a day. About 20 years ago went to inpatient treatment since then no treatment. Lately he has been homeless and he preferred that ways so that he does not have any money to buy any cocaine. He has been living with girlfriend who uses opioids and other substances. Recently he came to the hospital and was told his UDs was positive for cocaine, fentanyl, opiates and denied any such intake. He reports he has been off cocaine for the last 1.5 years except for 2.5 weeks ago when he used once. He does not see himself having any current addiction to cocaine. He would like to go to inpatient rehab mainly to have a stable living place but otherwise does not think he needs that for addiction. And that too he is thinking after he has the hip surgery. Cigarette Nicotine Dependence Without Complication Bilateral Hip Pain Counseling/Behavioral therapy:Components of motivational interview and CBT utilized. Urine toxicology results: See below OARRS/NARx reviewed since admission Patient is making an informed decision. Available medical records reviewed. Answered patient's questions. Disposition: As per primary team. Reason for Consult: Management of stimulant use disorder. History of Present Illness: Wolf Turcios is a 59 y.o. y/o male with PMH of cocaine use disorder, chronic hip pain, nicotine dependence presented to the hospital with shortness of breath, COPD exacerbation and pneumonia. Please see above substance use history. Denies any current opioid withdrawal symptoms Denies any alcohol intake. Denies any other current substance misuse. Please see above patient's explanation for the positive UDS. Social History Socioeconomic History Marital status: Single Spouse name: Not on file Number of children: Not on file Years of education: Not on file Highest education level: Not on file Occupational History Not on file Social Needs Financial resource strain: Not on file Food insecurity Worry: Not on file Inability: Not on file Transportation needs Medical: Not on file Non-medical: Not on file Tobacco Use Smoking status: Current Every Day Smoker Packs/day: 0.50 Years: 39.00 Pack years: 19.50 Types: Cigarettes Smokeless tobacco: Never Used Substance and Sexual Activity Alcohol use: Not Currently Comment: occ Drug use: Not Currently Types: Crack cocaine, Fentanyl, Buprenorphine Comment: Crack cocaine last use 3 days ago, denies opiate use including IVDA Sexual activity: Not on file Lifestyle Physical activity Days per week: Not on file Minutes per session: Not on file Stress: Not on file Relationships Social connections Talks on phone: Not on file Gets together: Not on file Attends alevism service: Not on file Active member of club or organization: Not on file Attends meetings of clubs or organizations: Not on file Relationship status: Not on file Other Topics Concern Not on file Social History Narrative Not on file Past Medical History: Diagnosis Date Asthma COPD (chronic obstructive pulmonary disease) (HCC) Essential hypertension 01/10/2017 Hyperlipidemia Polysubstance abuse (HCC) PUD (peptic ulcer disease) Thoracic aortic aneurysm (HCC) TIA (transient ischemic attack) Tobacco Abuse Past Surgical History: Procedure Laterality Date EYE SURGERY GASTRIC ULCER PERFORATION REPAIR Family History Problem Relation Age of Onset Diabetes Mother Diabetes Father Throat cancer Sister Heart attack Maternal Grandmother Allergy Information: I have reviewed the patient's allergies. Codeine Home Medications: Outpatient Medications as of 04/16/2020 Medication Sig acetaminophen (TYLENOL) 500 MG tablet Take 500 mg by mouth every 8 (eight) hours as needed . albuterol (PROVENTIL) 2.5 mg /3 mL (0.083 %) nebulizer solution Take 3 mL (2.5 mg total) by nebulization every 6 (six) hours as needed for wheezing . albuterol 90 mcg/actuation inhaler Inhale 2 (two) puffs every 4 to 6 hours as needed for wheezing Reasons: chronic obstructive pulmonary disease. azithromycin (ZITHROMAX) 250 MG tablet Take 1 (one) tablet (250 mg total) by mouth daily for 3 days Start: 04/13/20. budesonide-formoteroL (SYMBICORT) 160-4.5 mcg/actuation inhaler Inhale 2 (two) puffs 2 (two) times a day . cyclobenzaprine (FLEXERIL) 5 MG tablet Take 5 mg by mouth 2 (two) times a day as needed for muscle spasms . guaiFENesin (MUCINEX) 600 mg 12 hr tablet Take 1 (one) tablet (600 mg total) by mouth every 12 (twelve) hours . hydroCHLOROthiazide (HYDRODIURIL) 12.5 MG tablet Take 12.5 mg by mouth daily . montelukast (SINGULAIR) 10 mg tablet Take 1 (one) tablet (10 mg total) by mouth nightly . predniSONE (DELTASONE) 20 MG tablet Take 2 (two) tablets (40 mg total) by mouth daily with breakfast for 2 days, THEN 1 (one) tablet (20 mg total) daily with breakfast for 4 days, THEN 0.5 (one-half) tablet (10 mg total) daily with breakfast for 4 days. Start: 04/13/20. tiotropium bromide (Spiriva Respimat) 2.5 mcg/actuation Mist Inhale 1 spray daily . ----- Review of Systems: The following system(s) were reviewed and pertinent findings noted: Review of Systems Constitutional: Negative. HENT: Negative. Eyes: Negative. Respiratory: Positive for shortness of breath. Cardiovascular: Negative. Gastrointestinal: Negative. Endocrine: Negative. Genitourinary: Negative. Musculoskeletal: Positive for arthralgias. Skin: Negative. Neurological: Negative. Hematological: Negative. Psychiatric/Behavioral: Negative. Physical Examination: Vital Signs: BP (!) 156/95 Pulse 96 Temp 98.5 F (36.9 C) (Oral) Resp 16 Ht 6' 1 Wt 63.5 kg (140 lb) SpO2 97% BMI 18.47 kg/m Physical Exam Vitals signs and nursing note reviewed. Constitutional: General: He is not in acute distress. Appearance: Normal appearance. He is well-developed. He is not diaphoretic. HENT: Head: Normocephalic and atraumatic. Nose: Nose normal. Eyes: Extraocular Movements: Extraocular movements intact. Conjunctiva/sclera: Conjunctivae normal. Cardiovascular: Rate and Rhythm: Normal rate and regular rhythm. Pulses: Normal pulses. Heart sounds: Normal heart sounds. Pulmonary: Effort: Pulmonary effort is normal. Breath sounds: Wheezing present. Skin: General: Skin is warm. Neurological: Mental Status: He is alert and oriented to person, place, and time. Psychiatric: Mood and Affect: Mood normal. Behavior: Behavior normal. Thought Content: Thought content normal. Judgment: Judgment normal. Laboratory and Additional Data Reviewed: Laboratory 04/16/20 10:07 PM Medications 04/16/20 10:07 PM Cardiology 04/16/20 10:07 PM Transcriptions 04/16/20 10:07 PM Radiology 04/16/20 10:07 PM Lab Results Component Value Date WBC 16.93 (H) 04/16/2020 HGB 11.1 (L) 04/16/2020 HCT 35.1 (L) 04/16/2020 MCV 98.9 04/16/2020 PLT 280 04/16/2020 Lab Results Component Value Date GLUCOSE 84 04/14/2020 CALCIUM 8.4 04/12/2020 NA 137 04/14/2020 K 3.9 04/14/2020 CL 102 04/14/2020 BUN 9 04/14/2020 CREATININE 0.87 04/14/2020 EGFR 94 04/14/2020 ALBUMIN 3.6 04/13/2020 PROT 6.3 04/13/2020 AST 31 04/13/2020 ALT 26 04/13/2020 ALKPHOS 76 04/13/2020 BILITOT 0.5 04/13/2020 Lab Results Component Value Date AMPHUR None Detected 04/13/2020 BARBUR None Detected 04/13/2020 BENZUR None Detected 04/13/2020 THCUR None Detected 04/13/2020 COCAINESUR Presumptive Positive (A) 04/13/2020 URMETH None Detected 04/13/2020 OPIATEUR Presumptive Positive (A) 04/13/2020 UROXYCODONE None Detected 04/13/2020 Thank you for allowing me participate in the care of this patient. Please call [phone] or send me secure chat for any questions or concerns related to the problems being addressed by the addiction consult team. Ector Chou MD, MPH Addiction Medicine consult service Problem: Actual or potential alteration in health Goal: Knowledge of Enviroment Outcome: Partially Met Problem: Pain Goal: Manage acute pain Outcome: Partially Met Problem: Breathing Pattern - Ineffective Goal: Effective breathing pattern Outcome: Not Met Problem: Actual or potential alteration in health Goal: Absence of healthcare acquired conditions Outcome: Partially Met Goal: Knowledge of Enviroment Outcome: Met Problem: Pain Goal: Manage acute pain Outcome: Partially Met Goal: Achievement of comfort function goal Outcome: Partially Met Problem: Breathing Pattern - Ineffective Goal: Effective breathing pattern Outcome: Partially Met Problem: Breathing Pattern - Ineffective Goal: Effective breathing pattern Outcome: Partially Met Problem: Actual or potential alteration in health Goal: Absence of healthcare acquired conditions Outcome: Partially Met Goal: Knowledge of Interdisciplinary Plan of Care Outcome: Partially Met Goal: Knowledge of Enviroment Outcome: Partially Met Problem: Pain Goal: Manage acute pain Outcome: Partially Met Goal: Manage chronic pain Outcome: Partially Met Goal: Reduced pain sensation Outcome: Partially Met Goal: Achievement of comfort function goal Outcome: Partially Met Problem: Breathing Pattern - Ineffective Goal: Effective breathing pattern Outcome: Partially Met Problem: Breathing Pattern - Ineffective Goal: Effective breathing pattern Outcome: Partially Met Problem: Breathing Pattern - Ineffective Goal: Effective breathing pattern Note: 1. Assess respiratory status through observation of chest for excursion, breath sounds, cough effort & sputum production, and respiratory rate. 2. Notify physician of clinical changes. Continue current therapy Category A Medications: IP Meds - Nasal and Inhaled (From admission, onward) Frequency albuterol (PROVENTIL) 2.5 mg /3 mL (0.083 %) nebulizer solution 2.5 mg (albuterol-ipratropium (DUONEB) and albuterol (PROVENTIL) nebulizer) Every 2 hour PRN (RT) budesonide-formoteroL (SYMBICORT) 160-4.5 mcg/actuation inhaler 2 puff 2 times daily ipratropium-albuteroL (DUO-NEB) 0.5-2.5 mg/3 ml nebulizer solution 3 mL (albuterol-ipratropium (DUONEB) and albuterol (PROVENTIL) nebulizer) Every 4 hours scheduled (RT) Orders: Respiratory Orders (From admission, onward) Start Ordered 04/14/20 023 Pulse oximetry continuous Continuous Question: Release to patient Answer: Immediate 04/14/20 0231 04/14/20 0232 Nasal cannula oxygen (Oxygen Panel (Low Flow)) Continuous Comments: Titrate UP as needed. 1. For patients that can meet SpO2 goals, place on a nasal cannula at L of flow as indicated by the range above, with the lowest flow to achieve the SpO2 goal. 2. If the SpO2 goal is not met by a nasal cannula, contact RT to place patient on a Venturi mask, with the lowest flow to achieve the SpO2 goal. Titrate DOWN as soon as able. Notify physician if oxygen increases by 3L or 10% FiO2. Question Answer Comment Goal SpO2 90-95% Minimum O2 flow, in Liters Per Minute: 0 Maximum O2 flow, in Liters Per Minute 6 Release to patient Immediate 04/14/2023004/14/20231 Venturi mask oxygen (Oxygen Panel (Low Flow)) Continuous Comments: Titrate UP as needed. 1. For patients that can meet SpO2 goals, place on a nasal cannula at L of flow as indicated by the range above, with the lowest flow to achieve the SpO2 goal. 2. If the SpO2 goal is not met by a nasal cannula, contact RT to place patient on a Venturi mask, with the lowest flow to achieve the SpO2 goal. Titrate DOWN as soon as able. Notify physician if oxygen increases by 3L or 10% FiO2. Question Answer Comment Goal SpO2 90-95% Minimum O2 flow, in Liters Per Minute: 0 Maximum O2 flow, in Liters Per Minute 6 Release to patient Immediate 04/14/20230 ED Attestation: I have reviewed the non physician practitioner's documentation, personally taken the patient's history, performed an exam and agree with the physical findings, clinical impression and management plan Patient is a 59-year-old male who presents for nausea and vomiting. Patient denies any recent recreational drug use. Endorses last used cocaine one and half weeks ago. Endorsing chest pain as well. Physical Exam: General: No distress, alert and oriented HEENT: Normocephalic, atraumatic. External ears normal. Nares patent. Oropharynx clear without obstruction Neck: Supple. Normal range of motion Cardiovascular: Tachycardic, regular rhythm. No murmurs, rubs, or gallops Pulmonary: rhonchi, wheezes, bilateral breath sounds present Abdomen: Soft, nondistended Extremities: No edema, no obvious deformity Assessment: Wolf Turcios is a 59 y.o. male who presents with concern for sepsis Differential Diagnosis: PNA, UTI, cellulitis, bacteremia Plan: CBC, chem 7, UA, LFTs, Lipase, Lactate, Troponin Blood culture, urine culture Chest Xray EKG ABX IV fluid resuscitation Admission ED Course/MDM: Patient arrived hypoxic and tachycardic. PNA on CXR Patient's previous imaging and studies reviewed Suspicious for recent drug use based on last drug screen and presentation. Will admit for hypoxia, pna, and chest pain. CT pending. Associated Order(s): ECG 12 Lead ECG 12 Lead Date/Time: 04/13/2020 5:12 PM Performed by: Armando Leal MD Authorized by: Armando Leal MD Interpreted by ED attending physician Rhythm: sinus rhythm and sinus tachycardia BPM: 114 normal DC interval normal QRS interval normal QT interval Clinical impression: sinus tachycardia documented in this encounter Message sent to Rosalia FRITZ to obtain letter of pulmonary acceptabilty. Patient was seen by the nurse practitioner at his pulmonology office 06/14/[address] scan and pulmonary function test were ordered. Recommend patient complete this work-up and please request a letter of pulmonary suitability for the planned procedure from patient's electrical tester. Patient Instructions for OFF SITE SURGERY Prior to surgery: ? Please contact your Surgeon's office for the scheduled time of your surgery. ? If your surgeon has given you special guidelines for eating and drinking prior to surgery, follow their instructions. o If not, the evening before surgery you may eat a low-fat meal up until midnight. Do not eat anything, including gum, cough drops, hard candy or mints after midnight. Clear liquids, including water, Gatorade and black coffee (no dairy or creamer products), up to two hours prior to surgery are permitted. ? Do not smoke, chew tobacco or drink alcohol for 24 hours before surgery. ? Please take any medications you have been instructed to take the morning of your surgery with small sips of water. ? Please be sure to wear comfortable, appropriate clothing. ? Please remove all jewelry and piercings, including wedding rings. ? Leave all valuable items at home. ? Shower using anti-bacterial soap or as advised by your Surgeon's office. ? Do not apply makeup or lotions. ? Remove all nail monegasque for surgeries involving extremities. ? Please remember to bring both your insurance card and a photo ID with you on the day of surgery. After your surgery: ? If you are having outpatient surgery you must have a licensed stud driver take you home. The expectation is that this stud driver will remain at the hospital for the duration of your procedure. ? You are advised to have a family member with you for at least 24 hours after being under Anesthesia. documented in this encounter Message sent to Rosalia FRITZ to obtain letter of pulmonary acceptabilty. Patient was seen by the nurse practitioner at his pulmonology office 06/14/[address] scan and pulmonary function test were ordered. Recommend patient complete this work-up and please request a letter of pulmonary suitability for the planned procedure from patient's electrical tester. Patient Instructions for OFF SITE SURGERY Prior to surgery: ? Please contact your Surgeon's office for the scheduled time of your surgery. ? If your surgeon has given you special guidelines for eating and drinking prior to surgery, follow their instructions. o If not, the evening before surgery you may eat a low-fat meal up until midnight. Do not eat anything, including gum, cough drops, hard candy or mints after midnight. Clear liquids, including water, Gatorade and black coffee (no dairy or creamer products), up to two hours prior to surgery are permitted. ? Do not smoke, chew tobacco or drink alcohol for 24 hours before surgery. ? Please take any medications you have been instructed to take the morning of your surgery with small sips of water. ? Please be sure to wear comfortable, appropriate clothing. ? Please remove all jewelry and piercings, including wedding rings. ? Leave all valuable items at home. ? Shower using anti-bacterial soap or as advised by your Surgeon's office. ? Do not apply makeup or lotions. ? Remove all nail monegasque for surgeries involving extremities. ? Please remember to bring both your insurance card and a photo ID with you on the day of surgery. After your surgery: ? If you are having outpatient surgery you must have a licensed stud driver take you home. The expectation is that this stud driver will remain at the hospital for the duration of your procedure. ? You are advised to have a family member with you for at least 24 hours after being under Anesthesia. documented in this encounter I personally interviewed the patient. I personally examined the patient. I discussed the patient with MAJOR GIFTS DIRECTOR/PA. I agree with the MAJOR GIFTS DIRECTOR/PA treatment plan. I agree with the MAJOR GIFTS DIRECTOR/PA plan of care. I agree with the MAJOR GIFTS DIRECTOR/PA dispo as documented. Patient presents for shortness of breath and cough. Patient has history of COPD. He is not on oxygen at home. Has been on Z-Jose M the past 2 days without much relief. He has had Covid back in April. On my exam, he is resting comfortably no distress. Mild tachypnea but no accessory muscles or distress noted. Diffuse wheezing and mild diminished breath sounds noted throughout. No lower extremity edema or calf tenderness noted. No abdominal tenderness. Laboratory evaluation is reassuring EKG without signs of ischemia and symptoms are not consistent with ACS. Chest x-ray with right lower lobe nodule and CT obtained for further characterization. CT reveals actually improving pneumonia. Without any fevers or increased oxygen requirement I feel he is stable for discharge with diagnosis of likely COPD exacerbation. After breathing treatments and IV steroids here he had significant relief. Patient given steroids for home and return precautions. documented in this encounter Shared visit note: This is a 60-year-old male reportedly fell this morning. He has chronic right hip pain. He states he fell onto the hip and has increasing pain to the area. He denies any trauma to the head or neck. His GCS is 15. Patient resists any movement of the hip. However, I am able to passively flex and extend the hip and knee. Distal pulses are intact. Sensation is intact. Patient was scheduled for elective hydrocele repair today. This procedure has been canceled. It will be rescheduled. I personally interviewed the patient. I personally examined the patient. I discussed the patient with MAJOR GIFTS DIRECTOR/PA. I agree with the MAJOR GIFTS DIRECTOR/PA treatment plan. I agree with the MAJOR GIFTS DIRECTOR/PA plan of care. I agree with the MAJOR GIFTS DIRECTOR/PA dispo as documented. . documented in this encounter Complete for discharge Problem: Actual or potential alteration in health Goal: Absence of healthcare acquired conditions Outcome: Met Goal: Knowledge of Interdisciplinary Plan of Care Outcome: Met Goal: Knowledge of Enviroment Outcome: Met Problem: Pain Goal: Manage acute pain Outcome: Met Goal: Manage chronic pain Outcome: Met Goal: Reduced pain sensation Outcome: Met Goal: Achievement of comfort function goal Outcome: Met Problem: Breathing Pattern - Ineffective Goal: Effective breathing pattern Outcome: Met Problem: Actual or potential alteration in health Goal: Absence of healthcare acquired conditions Outcome: Not Met Goal: Knowledge of Interdisciplinary Plan of Care Outcome: Not Met Goal: Knowledge of Enviroment Outcome: Not Met Problem: Pain Goal: Manage acute pain Outcome: Not Met Goal: Manage chronic pain Outcome: Not Met Goal: Reduced pain sensation Outcome: Not Met Goal: Achievement of comfort function goal Outcome: Not Met Problem: Breathing Pattern - Ineffective Goal: Effective breathing pattern Outcome: Not Met documented in this encounter IV Fluids stopped: yes IV removed: yes Chart checked for prescriptions, home medications/security items: Yes AVS reviewed with patient: yes Including new/changed medications, signs/symptoms, & when to call 911: Yes Medications removed from med drawer & med drawer locked: yes Does patient have transportation for discharge: yes Patient vitals are stable and denies acute pain. All questions and concerns addressed. Pt ambulated/wheeled off unit to be transported home. Portable oxygen delivered to bedside. Pt medically cleared for discharge. Cab called and will cotton picking machine operator at ED entrance. Resting on room air oxygen saturation is 94%. Pre-exercising - 92% Exertion on room air- 88% Exertion with oxygen 94% on 2L Post exercise with oxygen 94% on 2L [id number] ENCOUNTER FOR HOME MEDICAL EQUIPMENT PATIENT: Wolf Turcios : 1960 Statement of Care: I certify that Wolf Turcios is under my care and that I, a Nurse Practitioner, Physician's Early Childhood Teacher, or Resident working with me, had a [id number] encounter with this patient today to evaluate and discuss the need for home medical equipment. I certify that based on the findings of this evaluation, which included but was not limited to the [id number] requirements, the following home medical equipment is medically necessary: Oxygen for the treatment of hypoxia due to COPD. Signed by: Kaitlynn Ambriz CNP on 07/26/2020 Problem: Actual or potential alteration in health Goal: Absence of healthcare acquired conditions Outcome: Partially Met Problem: Actual or potential alteration in health Goal: Knowledge of Interdisciplinary Plan of Care Outcome: Partially Met Problem: Actual or potential alteration in health Goal: Knowledge of Enviroment Outcome: Partially Met Problem: Pain Goal: Manage acute pain Outcome: Partially Met Goal: Reduced pain sensation Outcome: Partially Met Goal: Achievement of comfort function goal Outcome: Partially Met ED Attestation: I personally interviewed the patient. I personally examined the patient. I discussed the patient with MAJOR GIFTS DIRECTOR/PA. I agree with the MAJOR GIFTS DIRECTOR/PA treatment plan. I agree with the MAJOR GIFTS DIRECTOR/PA plan of care. I agree with the MAJOR GIFTS DIRECTOR/PA dispo as documented. I have personally taken the patient's history, performed an exam and agree with the physical findings, clinical impression and management plan. I discussed case with him/her and agree with the assessment and plan. I was involved in all medical decision making in the patient's care. 60 y.o. male with history of COPD and recent discharge after aspiration pneumonia who presents with lower extremity swelling, recently completed his course of antibiotics, has been having 2 to 3 days of lower extremity swelling and also reports shortness of breath, says that he does have some anterior chest pain but mostly associated with coughing denies any history of lower extremity swelling symptoms are acute and progressive use his inhalers just prior to arrival Physical Exam Vital signs reviewed. CONSTITUTIONAL: Chronically ill-appearing but not acutely toxic although does appear short of breath EYES: No conjunctival injection. No icterus. PERRL HEENT: External ears normal, external nose normal. Mouth and throat clear, MMM. NECK: Trachea midline, no crepitus, no rigidity RESPIRATORY: Diffusely decreased breath sounds bilaterally with end expiratory wheezing positive mild to moderate respiratory distress CHEST: Equal chest expansion no tenderness, no crepitus CARDIOVASCULAR: Tachycardic rate and rhythm. No murmurs. No cyanosis. Equal radial pulses, equal dp/pt pulses GASTROINTESTINAL: Abdomen soft, non-distended, non-tender, no guarding or rigidity. NEUROLOGICAL: Awake, alert and oriented. CN grossly intact. No extremity weakness or sensory deficit. PSYCHOLOGICAL: The patient's mood and manner are appropriate. Grooming and personal hygiene are appropriate. INTEGUMENTARY: Warm and dry. No rash noted. MUSCULOSKELETAL: There are no deformities noted. Bilateral lower extremity 1+ pitting edema MDM: Patient presents as above initial plan was right lower extremity swelling although on exam he appears that he has bilateral lower extremity swelling with 1+ pain edema bilaterally, he was tachypneic on exam with diffusely decreased breath sounds and end expiratory wheezing as well, order for a DuoNeb, with his recent hospitalization and is also having chest pain concern for possible PE as well so duplex ultrasound and also a CT of his chest have been ordered. Initial blood work shows no leukocytosis, patient is afebrile, lactic acid is elevated on the VBG however I do not feel patient is currently septic as is there is no signs of worsening pneumonia on his chest x-ray he has no leukocytosis and he is afebrile, I feel the patient's tachycardia and his lactic acidosis is most likely from his increased work of breathing EKG shows sinus tachycardia rate of 114 DC interval normal 132 QRS normal 80, no significant ST elevation or ST depression On reevaluation patient is improving with his DuoNeb had order for Xopenex secondary to the patient's tachycardia, CTA was negative for PE and also shows improvement of his pneumonia, however patient still does have some increased work of breathing and was multiple risk factors patient will benefit from admission to the hospital. Duplex ultrasound was negative. Impression: 1. Shortness of breath 2. Acute exacerbation of chronic obstructive pulmonary disease (COPD) (HCC) 3. Bilateral edema of lower extremity Procedures Flores Mayen MD documented in this encounter ED Attestation: I have reviewed the Advanced Practice Provider's (ASHER's) documentation. In addition, I have personally introduced myself to the patient, and have taken his history and performed an examination. I agree with the physical findings, management, clinical impression and disposition. In brief, Wolf is a 60 y.o. male who presents with a chief complaint of syncope. He was recently hospitalized for COPD exacerbation. He was discharged with oxygen. He states that he stood up out of his wheelchair to get into the taxi. He felt lightheaded and passed out. He denies injury but did strike his head on a pole. He is afebrile with stable vital signs. He saturating 97% on 1 L of oxygen with respiratory rate of 18. EKG is without ischemic changes or signs of arrhythmia. Head CT was performed given his age and comorbidities. No sign of injury seen. Labs reassuring. He is remained stable on telemetry without arrhythmias. This is likely due to some orthostasis and deconditioning. He has been treated with IV fluid and is feeling improved. Low risk by [place] syncope rules documented in this encounter AVS reviewed and provided. Patient verbalized understanding of all instructions and follow up. Patient belonging packed. Patient being transported home by family. IV removed. Problem: Breathing Pattern - Ineffective Goal: Effective breathing pattern Outcome: Partially Met Problem: Breathing Pattern - Ineffective Goal: Effective breathing pattern Outcome: Partially Met Medications: IP Meds - Nasal and Inhaled (From admission, onward) Frequency budesonide-formoteroL (SYMBICORT) 160-4.5 mcg/actuation inhaler 2 puff 2 times daily ipratropium-albuteroL (DUO-NEB) 0.5-2.5 mg/3 ml nebulizer solution 3 mL (albuterol-ipratropium (DUONEB) nebulizer) Every 4 hours PRN (RT) ipratropium-albuteroL (DUO-NEB) 0.5-2.5 mg/3 ml nebulizer solution 3 mL (albuterol-ipratropium (DUONEB) nebulizer) Every 4 hours scheduled (RT) Orders: Respiratory Orders (From admission, onward) Start Ordered 08/11/20 1200 Incentive spirometry Every 4 hours while awake (RT) Question: Release to patient Answer: Immediate 08/11/20 0959 08/11/20 1013 BiPAP (BiPAP per Respiratory Care Default Setting and Titrations) Continuous Comments: Notify physician for subsequent management plan after initial 1-2 hours if/when goal therapy has been met. Notify physician for evidence of exclusion criteria, SpO2 less than goal, pH less than 7.25, PCO2 greater than 90; systolic BP less than 90 mmHg; decrease in LOC, no improvement in respiratory distress, inability to tolerate therapy, or other progressive medical instability. Question Answer Comment IPAP 12 EPAP 6 FiO2 weaning to SpO2 goal of: 88% to 92% Diagnosis COPD (chronic obstructive pulmonary disease) (HCC) Release to patient Immediate 08/11/20 1015 08/11/20 1000 Vibratory PEP therapy 4 times daily Question: Release to patient Answer: Immediate 08/11/20 0959 08/09/20 0421 Nasal cannula oxygen (Oxygen Panel (Low Flow)) Continuous Comments: Titrate UP as needed. 1. For patients that can meet SpO2 goals, place on a nasal cannula at L of flow as indicated by the range above, with the lowest flow to achieve the SpO2 goal. 2. If the SpO2 goal is not met by a nasal cannula, contact RT to place patient on a Venturi mask, with the lowest flow to achieve the SpO2 goal. Titrate DOWN as soon as able. Notify physician if oxygen increases by 3L or 10% FiO2. Question Answer Comment Goal SpO2 90-95% Minimum O2 flow, in Liters Per Minute: 0 Maximum O2 flow, in Liters Per Minute 6 Release to patient Immediate 08/09/20 0420 08/09/20 0421 Venturi mask oxygen (Oxygen Panel (Low Flow)) Continuous Comments: Titrate UP as needed. 1. For patients that can meet SpO2 goals, place on a nasal cannula at L of flow as indicated by the range above, with the lowest flow to achieve the SpO2 goal. 2. If the SpO2 goal is not met by a nasal cannula, contact RT to place patient on a Venturi mask, with the lowest flow to achieve the SpO2 goal. Titrate DOWN as soon as able. Notify physician if oxygen increases by 3L or 10% FiO2. Question Answer Comment Goal SpO2 90-95% Minimum O2 flow, in Liters Per Minute: 0 Maximum O2 flow, in Liters Per Minute 6 Release to patient Immediate 08/09/2041908/09/20420 Pulse oximetry continuous Continuous Question: Release to patient Answer: Immediate 08/09/20419 Four eyes skin assessment done with Adalgisa BELL. Scabs and scares with ecchymosis. No wounds. Problem: Pain Goal: Manage acute pain Outcome: Partially Met Goal: Manage chronic pain Outcome: Partially Met Goal: Reduced pain sensation Outcome: Partially Met Goal: Achievement of comfort function goal Outcome: Partially Met Problem: Breathing Pattern - Ineffective Goal: Effective breathing pattern Outcome: Partially Met Problem: Breathing Pattern - Ineffective Goal: Effective breathing pattern Outcome: Partially Met Medications: IP Meds - Nasal and Inhaled (From admission, onward) Frequency budesonide-formoteroL (SYMBICORT) 160-4.5 mcg/actuation inhaler 2 puff 2 times daily ipratropium-albuteroL (DUO-NEB) 0.5-2.5 mg/3 ml nebulizer solution 3 mL (albuterol-ipratropium (DUONEB) nebulizer) 4 times daily (RT) ipratropium-albuteroL (DUO-NEB) 0.5-2.5 mg/3 ml nebulizer solution 3 mL (albuterol-ipratropium (DUONEB) nebulizer) Every 4 hours PRN (RT) Orders: Respiratory Orders (From admission, onward) Start Ordered 08/09/20420 Nasal cannula oxygen (Oxygen Panel (Low Flow)) Continuous Comments: Titrate UP as needed. 1. For patients that can meet SpO2 goals, place on a nasal cannula at L of flow as indicated by the range above, with the lowest flow to achieve the SpO2 goal. 2. If the SpO2 goal is not met by a nasal cannula, contact RT to place patient on a Venturi mask, with the lowest flow to achieve the SpO2 goal. Titrate DOWN as soon as able. Notify physician if oxygen increases by 3L or 10% FiO2. Question Answer Comment Goal SpO2 90-95% Minimum O2 flow, in Liters Per Minute: 0 Maximum O2 flow, in Liters Per Minute 6 Release to patient Immediate 08/09/20 0420 08/09/20420 Venturi mask oxygen (Oxygen Panel (Low Flow)) Continuous Comments: Titrate UP as needed. 1. For patients that can meet SpO2 goals, place on a nasal cannula at L of flow as indicated by the range above, with the lowest flow to achieve the SpO2 goal. 2. If the SpO2 goal is not met by a nasal cannula, contact RT to place patient on a Venturi mask, with the lowest flow to achieve the SpO2 goal. Titrate DOWN as soon as able. Notify physician if oxygen increases by 3L or 10% FiO2. Question Answer Comment Goal SpO2 90-95% Minimum O2 flow, in Liters Per Minute: 0 Maximum O2 flow, in Liters Per Minute 6 Release to patient Immediate 08/09/20 0420 08/09/20420 Pulse oximetry continuous Continuous Question: Release to patient Answer: Immediate 08/09/20419 Admission Head to Toe Skin Assessment Use F2 to Navigate 1. Skin intact and no visible wounds. 2. Abnormal Findings: None 3. Preventive Measures Initiated? Skin will be assessed every shift. 4. Two Nurses completing head to toe skin assessment [id number] and [id number] Pt belongings: Wallet and perez with security Brown coat Munoz zip up hoodie Tennis shoes Pants Shirt Socks Long underwear pants Problem: Breathing Pattern - Ineffective Goal: Effective breathing pattern Outcome: Not Met Note: 1. Assess respiratory status through observation of chest for excursion, breath sounds, cough effort & sputum production, and respiratory rate. 2. Notify physician of clinical changes. Continue current therapy Problem: Actual or potential alteration in health Goal: Knowledge of Enviroment Outcome: Partially Met Problem: Pain Goal: Manage acute pain Outcome: Partially Met ED Attestation: I have reviewed the non physician practitioner's documentation, personally taken the patient's history, performed an exam and agree with the physical findings, clinical impression and management plan Comments: Patient is a 60-year-old male presenting the emergency department today with a chief complaint of cough. Patient arrived tachycardic and febrile. Most recent hospitalization was July 17. He said multiple ED visits since then. He has a history of COPD. Today he does have evidence for pneumonia his white count is elevated he is febrile and tachycardic on admission is qualifying for sepsis I discussed case with [facility] agreed to accept him to their service for further treatment. Vital signs have since normalized. Patient is feeling better he appears well resting in bed in no acute distress. documented in this encounter Message sent to Rosalia FRITZ to obtain letter of pulmonary acceptabilty. Patient was seen by the nurse practitioner at his pulmonology office 06/14/[address] scan and pulmonary function test were ordered. Recommend patient complete this work-up and please request a letter of pulmonary suitability for the planned procedure from patient's electrical tester. Patient Instructions for OFF SITE SURGERY Prior to surgery: ? Please contact your Surgeon's office for the scheduled time of your surgery. ? If your surgeon has given you special guidelines for eating and drinking prior to surgery, follow their instructions. o If not, the evening before surgery you may eat a low-fat meal up until midnight. Do not eat anything, including gum, cough drops, hard candy or mints after midnight. Clear liquids, including water, Gatorade and black coffee (no dairy or creamer products), up to two hours prior to surgery are permitted. ? Do not smoke, chew tobacco or drink alcohol for 24 hours before surgery. ? Please take any medications you have been instructed to take the morning of your surgery with small sips of water. ? Please be sure to wear comfortable, appropriate clothing. ? Please remove all jewelry and piercings, including wedding rings. ? Leave all valuable items at home. ? Shower using anti-bacterial soap or as advised by your Surgeon's office. ? Do not apply makeup or lotions. ? Remove all nail monegasque for surgeries involving extremities. ? Please remember to bring both your insurance card and a photo ID with you on the day of surgery. After your surgery: ? If you are having outpatient surgery you must have a licensed stud driver take you home. The expectation is that this stud driver will remain at the hospital for the duration of your procedure. ? You are advised to have a family member with you for at least 24 hours after being under Anesthesia. documented in this encounter Please see the recommendations from patient's electrical tester dated 06/21/2020. Patient is at increased risk for postoperative pulmonary complications. It is recommended to check PFTs. These have been ordered by patient's electrical tester at the 06/14/[address] scan was also recommended at that time. Recommend patient complete both of these things prior to the planned procedure. Please notify patient and surgeon. Message sent to Logan LAM to obtain letter of pulmonary acceptabilty. Patient was seen by the nurse practitioner at his pulmonology office 06/14/[address] scan and pulmonary function test were ordered. Recommend patient complete this work-up and please request a letter of pulmonary suitability for the planned procedure from patient's electrical tester. Patient Instructions for OFF SITE SURGERY Prior to surgery: ? Please contact your Surgeon's office for the scheduled time of your surgery. ? If your surgeon has given you special guidelines for eating and drinking prior to surgery, follow their instructions. o If not, the evening before surgery you may eat a low-fat meal up until midnight. Do not eat anything, including gum, cough drops, hard candy or mints after midnight. Clear liquids, including water, Gatorade and black coffee (no dairy or creamer products), up to two hours prior to surgery are permitted. ? Do not smoke, chew tobacco or drink alcohol for 24 hours before surgery. ? Please take any medications you have been instructed to take the morning of your surgery with small sips of water. ? Please be sure to wear comfortable, appropriate clothing. ? Please remove all jewelry and piercings, including wedding rings. ? Leave all valuable items at home. ? Shower using anti-bacterial soap or as advised by your Surgeon's office. ? Do not apply makeup or lotions. ? Remove all nail monegasque for surgeries involving extremities. ? Please remember to bring both your insurance card and a photo ID with you on the day of surgery. After your surgery: ? If you are having outpatient surgery you must have a licensed stud driver take you home. The expectation is that this stud driver will remain at the hospital for the duration of your procedure. ? You are advised to have a family member with you for at least 24 hours after being under Anesthesia. documented in this encounter Message left for patient to call back for additional information obtained. Dr. Oswald's note sent to Dr. Perla via secure chat Please see the recommendations from patient's electrical tester dated 06/21/2020. Patient is at increased risk for postoperative pulmonary complications. It is recommended to check PFTs. These have been ordered by patient's electrical tester at the 06/14/[address] scan was also recommended at that time. Recommend patient complete both of these things prior to the planned procedure. Please notify patient and surgeon. Message sent to Rosalia FRITZ to obtain letter of pulmonary acceptabilty. Patient was seen by the nurse practitioner at his pulmonology office 06/14/[address] scan and pulmonary function test were ordered. Recommend patient complete this work-up and please request a letter of pulmonary suitability for the planned procedure from patient's electrical tester. Patient Instructions for OFF SITE SURGERY Prior to surgery: ? Please contact your Surgeon's office for the scheduled time of your surgery. ? If your surgeon has given you special guidelines for eating and drinking prior to surgery, follow their instructions. o If not, the evening before surgery you may eat a low-fat meal up until midnight. Do not eat anything, including gum, cough drops, hard candy or mints after midnight. Clear liquids, including water, Gatorade and black coffee (no dairy or creamer products), up to two hours prior to surgery are permitted. ? Do not smoke, chew tobacco or drink alcohol for 24 hours before surgery. ? Please take any medications you have been instructed to take the morning of your surgery with small sips of water. ? Please be sure to wear comfortable, appropriate clothing. ? Please remove all jewelry and piercings, including wedding rings. ? Leave all valuable items at home. ? Shower using anti-bacterial soap or as advised by your Surgeon's office. ? Do not apply makeup or lotions. ? Remove all nail monegasque for surgeries involving extremities. ? Please remember to bring both your insurance card and a photo ID with you on the day of surgery. After your surgery: ? If you are having outpatient surgery you must have a licensed stud driver take you home. The expectation is that this stud driver will remain at the hospital for the duration of your procedure. ? You are advised to have a family member with you for at least 24 hours after being under Anesthesia. documented in this encounter Dr. Oswald's note sent to Dr. Perla via secure chat Please see the recommendations from patient's electrical tester dated 06/21/2020. Patient is at increased risk for postoperative pulmonary complications. It is recommended to check PFTs. These have been ordered by patient's electrical tester at the 06/14/[address] scan was also recommended at that time. Recommend patient complete both of these things prior to the planned procedure. Please notify patient and surgeon. Message sent to Rosalia FRITZ to obtain letter of pulmonary acceptabilty. Patient was seen by the nurse practitioner at his pulmonology office 06/14/[address] scan and pulmonary function test were ordered. Recommend patient complete this work-up and please request a letter of pulmonary suitability for the planned procedure from patient's electrical tester. Patient Instructions for OFF SITE SURGERY Prior to surgery: ? Please contact your Surgeon's office for the scheduled time of your surgery. ? If your surgeon has given you special guidelines for eating and drinking prior to surgery, follow their instructions. o If not, the evening before surgery you may eat a low-fat meal up until midnight. Do not eat anything, including gum, cough drops, hard candy or mints after midnight. Clear liquids, including water, Gatorade and black coffee (no dairy or creamer products), up to two hours prior to surgery are permitted. ? Do not smoke, chew tobacco or drink alcohol for 24 hours before surgery. ? Please take any medications you have been instructed to take the morning of your surgery with small sips of water. ? Please be sure to wear comfortable, appropriate clothing. ? Please remove all jewelry and piercings, including wedding rings. ? Leave all valuable items at home. ? Shower using anti-bacterial soap or as advised by your Surgeon's office. ? Do not apply makeup or lotions. ? Remove all nail monegasque for surgeries involving extremities. ? Please remember to bring both your insurance card and a photo ID with you on the day of surgery. After your surgery: ? If you are having outpatient surgery you must have a licensed stud driver take you home. The expectation is that this stud driver will remain at the hospital for the duration of your procedure. ? You are advised to have a family member with you for at least 24 hours after being under Anesthesia. documented in this encounter Reason for Visit (unrecogniz ed section and content) Reason Comments Shortness of Breath Specialty Diagnoses / Procedures Referred By Contlorena t Referred To Contact Diagnoses Tachycardia Acute exacerbation of chronic obstructive pulmonary disease (COPD) (HCC) Acute respiratory failure with hypoxia (HCC) Acute on chronic respiratory failure (HCC) Referral ID Status Reason Start Date Expiration Date Visits Re quested Visits Authorized [id number] 1 1 Reason Comments Leg Swelling Status Reason Specialty Diagnoses / Procedures Referre d By Contact Referred To Contact Diagnoses COPD exacerbation (HCC) Reason Comments Status Reason Specialty Diagnoses / Procedures Referre d By Contact Referred To Contact Diagnoses COPD (chronic obstructive pulmonary disease) (HCC) Tobacco Abuse COPD exacerbation (HCC) Leukocytosis, unspecified type Dyspnea, unspecified type Reason Comments Stroke Alert Status Reason Specialty Diagnoses / Procedures Referre d By Contact Referred To Contact Closed Radiology Diagnoses Testicle swelling Procedures US Testicle With Color Flow Karma Mark CNP [facility] [place] [address] Status Reason Specialty Diagnoses / Procedures Referre d By Contact Referred To Contact Closed Radiology Diagnoses Retention of urine, unspecified Procedures US Renal and Bladder Karma Mark CNP [facility] [place] [address] Reason Comments Syncope Status Reason Specialty Diagnoses / Procedures Referre d By Contact Referred To Contact Diagnoses Syncope Reason Comments Pain R hip pain, referred by PCP, xrays in [facility], was told he is bone on bone, feels like the bone is popping, no previous treatments, currently 9 months cleaned from drugs and proud of it Pain Status Reason Specialty Diagnoses / Procedures Referre d By Contact Referred To Contact Reason Comments Consult ref from [facility], Dr. Duran cameron, [facility] hoping to plan poss combo case w/ [facility] for excision carlos epididymal cysts. PMH- COPD, tobacco abuse, HTN, thoracic AA, OA hip, TIA. ([facility] notes states prev hernia surg can'd d/t + drug test). Status Reason Specialty Diagnoses / Procedures Referred By Contact Referred To Contact Closed Specialty Services Required/Patien t's Best Interest General Surgery Diagnoses Bilateral inguinal hernia without obstruction or gangrene, recurrence not specified Leonardo Perla MD [address] [facility] [address] [place] [address] [address] [facility] [address] [place] [address] Status Reason Specialty Diagnoses / Procedures Re ferred By Contact Referred To Contact Diagnoses Hypokalemia Hypoxia COPD exacerbation (HCC) Chest pain, atypical Acute respiratory failure with hypoxia (HCC) Chest pain, unspecified type Pneumonia due to infectious organism, unspecified laterality, unspecified part of lung Multifocal pneumonia Nausea and vomiting, intractability of vomiting not specified, unspecified vomiting type Non-intractable vomiting with nausea, unspecified vomiting type Sepsis, due to unspecified organism, unspecified whether acute organ dysfunction present (HCC) Reason Comments Hospital follow up Reason Comments Pre-operative Medical Risk Stratificatio n Reason Comments Follow-up Reason Comments Fall Reason Comments Cough Status Reason Specialty Diagnoses / Procedures Referre d By Contact Referred To Contact Diagnoses Acute respiratory failure (HCC) Pneumonia of left lung due to infectious organism, unspecified part of lung Sepsis, due to unspecified organism, unspecified whether acute organ dysfunction present (HCC) Status Reason Specialty Diagnoses / Procedures Referred By Contact Referred To Contact Closed Specialty Services Required/Patient' s Best Interest Urology Diagnoses Epididymal cyst Karma Mark, OBJECT ORIENTED PROGRAMMER [address] [place] [address] [facility] [address] [facility] [address] [place] [address] Reason Comments Chest Pain Reason Comments Leg Pain Reason Comments Grape stuck in throat Reason Onset Date Comments Community Resource Linkage 01/10/2021 Reason Comments Pre-op Exam COPD Reason Onset Date Comments Medication Refill 01/23/2021 Specialty Diagnoses / Procedures Referred By Alexa sutton Referred To Contact Diagnoses Unilateral primary osteoarthritis, right hip Procedures DC TOTAL HIP ARTHROPLASTY Teresa Terry MD [address] [place] [address] Referral ID Status Reason Start Date Expiration Date Visits Re quested Visits Authorized [id number] 01/14/2021 01/14/2022 1 1 Reason Comments Follow-up R ISABEL 01/28/21. Pt st ates that he is feeling good overall. Had some swelling earlier this week, but is improving. He denies any pain today. Is ambulating with a walker. Aquacell removed, incision looks good, no active drainage. Follow-up Reason Comments Follow-up R ISABEL 01/28/21. Pt is doing well. Aquacel removed, incision loks good, no drainage. Is walking regulary without any ambulatory aide. Has gone back to light duty at work. Is requesting suboxone Follow-up Reason Comments Follow-up R ISABEL 01/28/21, XR to day. Pt states that he is doing well. Incision is well healed with no drainage. He is walking regularly. Reports that his pain is decreasing. 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 N/t L LE knee down. PL 12/15. Ongoing pain for about 10 years. No previous sx, injections, PT. XR today. Specialty Diagnoses / Procedures Referred By Alexa sutton Referred To Contact Orthopedic Surgery Diagnoses Chronic low back pain with left-sided sciatica, unspecified back pain laterality Karma Mark, OBJECT ORIENTED PROGRAMMER [address] [place] [address] Elpidio Teran, [address] [place] [address] Referral ID Status Reason Start Date Expiration Date Visits Re quested Visits Authorized [id number] Closed 05/17/2021 05/17/2022 1 1 Reason Comments Follow-up Lumbar follow-up. N/ t L LE. PL 01/15. Review MRI results[place]in [facility] [place]. Reason Comments New Patient Eyes constantly runs Specialty Diagnoses / Procedures Referred By Contac t Referred To Contact Internal Medicine / General Medicine Diagnoses est care pt takes gabapentin just moved from [place] - has [place] medicaid and will transfer to [place] medicaid. phone breaking up so cannot get ins # Procedures NEW PRIMARY CARE Self, Self Ivonne Henry MD [address] [facility] [address] [place] [address] Referral ID Status Reason Start Date Expiration Date V isits Requested Visits Authorized [id number] Pending Review 10/02/2023 10/26/2024 1 1 Reason Onset Date Comments Results 10/05/2023 Specialty Diagnoses / Procedures Referred By Contac t Referred To Contact Diagnoses Other emphysema Health care maintenance Procedures PFT STANDARD Ivonne Henry MD [address] [facility] [address] [place] [address] Referral ID Status Reason Start Date Expiration Date V isits Requested Visits Authorized [id number] Pending Review 10/02/2023 10/26/2024 1 1 Specialty Diagnoses / Procedures Referred By Contac t Referred To Contact Diagnoses Screening for lung cancer Procedures CT LUNG CANCER SCREENING CHG COMPUTED TOMOGRAPHY THORAX LW DOSE LNG CA SCR Karyn- Chuy Cheek, SEASONAL [employer]ENER[employer] BUNDLER-OBJECT ORIENTED PROGRAMMER [address] [facility] [address] [place] [address] Referral ID Status Reason Start Date Expiration Date V isits Requested Visits Authorized [id number] Pending Review 10/05/2023 10/29/2024 1 1 Reason Onset Date Comments Results 10/19/2023 Reason Onset Date Comments Results 10/19/2023 Specialty Diagnoses / Procedures Referred By Contac t Referred To Contact Diagnoses COPD with acute exacerbation (HCC) Referral ID Status Reason Start Date Expiration Date Visits Re quested Visits Authorized [id number] 1 1 Reason Onset Date Comments Insurance 10/22/2023 Reason Comments Shortness of Breath Specialty Diagnoses / Procedures Referred By Contac t Referred To Contact Diagnoses COPD exacerbation Kirk Ragland MD [address] [facility] [address] [place] [address] [facility] [address] [place] [address] Referral ID Status Reason Start Date Expiration Date Visits Re quested Visits Authorized [id number] 1 1 Reason Comments Follow-up Pt states he's here for a hospital follow up for bronchitis day before yesterday Reason Onset Date Comments Referral 11/05/2023 Reason Comments Prostate Cancer Initial consult Specialty Diagnoses / Procedures Referred By Contac t Referred To Contact Radiation Oncology Diagnoses Prostate cancer (HCC) Elijah Sanchez MD [address] [facility] [address] [place] [address] Phone: tel: fax: Jihan Rodriguez MD [address] [place] [address] Phone: tel: fax: Referral ID Status Reason Start Date Expiration Date Visits Re quested Visits Authorized [id number] Closed 02/14/2025 02/14/2026 1 1 Reason Comments Prostate Cancer OTV 10/03 Gerardo Manzanares RN - 08/11/2019 1:32 PM Maxime Roe MD - 08/11/2019 12:16 PM Joselin Freeman RN - 08/11/2019 12:05 PM Jenna Hathaway RN - 08/11/2019 12:01 PM EST ED Notes (unrecognized secti on and content) Bed: 39 Expected date: Expected time: Means of arrival: Comments: No bed ED ATTENDING NOTE PCP - Physician No Chief Complaint Patient presents with Shortness of Breath HPI Patient presented to the emergency department via EMS for evaluation of shortness of breath. States he has a history of COPD. He has not had a tobacco in 30 days nor any drugs for that matter either. He has been coughing mostly through the night occasionally bringing up white to green type sputum. States [place] walk around his find is getting more short of breath. Apparently was walking to an [employer] [facility] he got so short of breath and EMS was contacted. He was given a DuoNeb treatment by EMS and actually on arrival here feels significantly improved. He does have inhalers. He has been using his inhalers as he supposed to. Admits to having some chest discomfort. Some bilateral chest tenderness sharp stabbing pains he thinks this is a result of coughing through the night. No swelling in the lower extremities. No history of injury to the chest. No history of heart attack. Pain is mild except for when he coughs. No nausea or vomiting. Does have some nasal congestion rhinorrhea. No recent travel. Review of Systems Constitutional: Negative for unexpected weight change. HENT: Negative for voice change or ear pain. Eyes: Negative for visual disturbance. Respiratory: Negative for hemoptysis. Cardiovascular: Negative for leg swelling. Genitourinary: Negative for difficulty urinating. Musculoskeletal: Negative for joint swelling. Skin: Negative for rash. Neurological: Negative for speech difficulty. Psychiatric/Behavioral: Negative for hallucinations. Past Medical History Past Medical History: Diagnosis Date Asthma COPD (chronic obstructive pulmonary disease) ([facility]) Emphysema/COPD ([facility]) Essential hypertension 01/10/2017 Past Surgical History Past Surgical History: Procedure Laterality Date GASTRIC ULCER PERFORATION REPAIR Family History Family History Problem Relation Age of Onset Diabetes Mother Diabetes Father Throat cancer Sister Heart attack Maternal Grandmother Social History Social History Socioeconomic History Marital status: Single Spouse name: Not on file Number of children: Not on file Years of education: Not on file Highest education level: Not on file Occupational History Not on file Social Needs Financial resource strain: Not on file Food insecurity Worry: Not on file Inability: Not on file Transportation needs Medical: Not on file Non-medical: Not on file Tobacco Use Smoking status: Current Every Day Smoker Packs/day: 0.50 Years: 40.00 Pack years: 20.00 Types: Cigarettes Smokeless tobacco: Never Used Substance and Sexual Activity Alcohol use: No Comment: occ Drug use: Yes Types: Cocaine Comment: last used crack 4 days ago Sexual activity: Not on file Lifestyle Physical activity Days per week: Not on file Minutes per session: Not on file Stress: Not on file Relationships Social connections Talks on phone: Not on file Gets together: Not on file Attends alevism service: Not on file Active member of club or organization: Not on file Attends meetings of clubs or organizations: Not on file Relationship status: Not on file Other Topics Concern Not on file Social History Narrative Not on file Allergies Allergies Allergen Reactions Codeine Itching Medications Wolf Turcios Home Medication Instructions Prior to Surgery NUNO:[id number] Printed on:08/11/19 1412 Medication Information Take last dose on Take the morning of surgery Comment(s) albuterol (VENTOLIN HFA) 90 mcg/actuation inhaler Inhale 2 (two) puffs every 6 (six) hours as needed for wheezing or shortness of breath (Only use if not using your nebulizer) . amLODIPine (NORVASC) 5 MG tablet Take 1 (one) tablet (5 mg total) by mouth daily . atorvastatin (LIPITOR) 20 MG tablet Take 1 (one) tablet (20 mg total) by mouth nightly . benzonatate (TESSALON) 200 MG capsule Take 1 (one) capsule (200 mg total) by mouth 3 (three) times a day as needed for cough . gabapentin (NEURONTIN) 400 MG capsule Take 1 (one) capsule (400 mg total) by mouth every 8 (eight) hours (Days supply per fill: 30). ipratropium-albuterol (DUO-NEB) 0.5-2.5 mg/3 ml nebulizer Take 3 mL by nebulization every 4 to 6 hours as needed for wheezing or shortness of breath . lidocaine (XYLOCAINE) 2 % Soln Apply 5 mL to the mouth or throat every 3 (three) hours for 10 days . lisinopril (PRINIVIL,ZESTRIL) 5 MG tablet Take 1 (one) tablet (5 mg total) by mouth daily . pantoprazole (PROTONIX) 40 MG tablet Take 1 (one) tablet (40 mg total) by mouth daily Reasons: stomach ulcer. predniSONE (DELTASONE) 20 MG tablet One PO BID for three days then one PO q day for 3 days . umeclidinium (INCRUSE ELLIPTA) 62.5 mcg/actuation DsDv Inhale 62.5 mcg daily . Physical Exam Initial Vital Signs BP (!) 142/108 Pulse (!) 102 Temp 98.5 F (36.9 C) (Oral) Resp (!) 22 SpO2 98% Vital Signs During ED Visit (as charted by nursing) Patient Vitals for the past 24 hrs: BP Temp Temp src Pulse Resp SpO2 08/11/19 1318 (!) 142/108 98 % 08/11/19 1209 98.5 F (36.9 C) Oral 08/11/19 1201 (!) 143/102 (!) 102 (!) 22 96 % Physical Exam Vitals signs and nursing note reviewed. Constitutional: General: He is not in acute distress. Appearance: He is well-developed. He is not diaphoretic. HENT: Head: Normocephalic and atraumatic. Eyes: Pupils: Pupils are equal, round, and reactive to light. Neck: Musculoskeletal: Normal range of motion and neck supple. Cardiovascular: Rate and Rhythm: Normal rate and regular rhythm. Pulmonary: Effort: Pulmonary effort is normal. No respiratory distress. Breath sounds: Decreased breath sounds and wheezing ( Just a few mild scattered wheezes) present. No rhonchi or rales. Chest: Chest wall: Tenderness present. No crepitus. Abdominal: General: Bowel sounds are normal. Palpations: Abdomen is soft. Tenderness: There is no abdominal tenderness. Musculoskeletal: Right lower leg: He exhibits no tenderness. No edema. Left lower leg: He exhibits no tenderness. No edema. Skin: General: Skin is warm and dry. Neurological: General: No focal deficit present. Mental Status: He is alert and oriented to person, place, and time. Psychiatric: Mood and Affect: Mood normal. Behavior: Behavior normal. IMPRESSION/ ED COURSE Patient presented to the emergency department complaining of shortness of breath. Upon arrival he had received a neb treatment actually sounded fairly clear. Slightly decreased to just occasional wheeze. Basic blood work was reviewed along with an x-ray of this chest. Glucose was 101 otherwise electrolytes within normal limits troponin T is normal as is proBNP. White count is normal and hemoglobin is 14.0. X-ray of chest shows no acute cardiopulmonary disease identified. Was given dose of steroids here. He is complaining of his cough was given a dose of Hycodan elixir. He has a little irritation of back of his throat but no evidence of strep on my examination. On reevaluation prior to discharge his breathing of still appears to be at baseline appears to be comfortable with just a few occasional scattered wheeze. He reiterates that he is not smoking around anybody who is smoking currently. I think he safe for discharge. Provide steroids for couple days now continue using his inhalers. Does not require antibiotics at this point time I did give him some viscous lidocaine to help with his throat irritation I will also discharge with Naseem Tate. . FINAL DIAGNOSIS 1. Acute exacerbation of chronic obstructive pulmonary disease (COPD) ([facility]) Labs Reviewed BASIC METABOLIC PANEL - Abnormal; Notable for the following components: Result Value Glucose 101 (*) All other components within normal limits Narrative: The eGFR should be used for monitoring renal function only and not for medication dosing. CBC WITH AUTO DIFFERENTIAL - Abnormal; Notable for the following components: RBC 4.33 (*) Eosinophils Abs 1.12 (*) All other components within normal limits NT PRO BNP - Normal Narrative: Pride Study Cut-offs Rule In: < /= 50 Years >450 pg/mL 51 Years - 75 Years >900 pg/mL 76 Years - 99 Years >1800 pg/mL Rule Out: All patients <300 pg/mL CBC AND DIFFERENTIAL Narrative: The following orders were created for panel order CBC w/ Diff. Procedure Abnormality Status --------- ------ CBC Auto Differential[[id number]] Abnormal Final result Please view results for these tests on the individual orders. TROPONIN Radiographic Imaging (if any) During ED Visit XR Chest AP/PA and LAT Final Result No acute cardiopulmonary disease identified. Workstation ID: [id number] Medications Ordered/Given During ED Visit Medications sodium chloride (PF) (NS) flush 5 mL (has no administration in time range) And sodium chloride 0.9% (NS) (has no administration in time range) HYDROcodone-homatropine (HYCODAN,HYDROMET) 5-1.5 mg/5 mL syrup 5 mL (has no administration in time range) predniSONE (DELTASONE) tablet 60 mg (60 mg Oral Given 08/11/19 1317) Procedures Maxime Liz MD 08/11/19 1413 Patient states that he has been coughing since last night and this morning he walked to an emaze and he was so short of breath that he called EMS. Per EMS he was breathing 30 times a minute but pulse ox was 97%. He was given a breathing treatment per EMS and respiratory rate decreased to normal. Bed: 31 Expected date: Expected time: Means of arrival: Comments: M14, SOB, Agusto documented in this encounter Meal tray ordered at this time. ED PROVIDER NOTE [facility] EMERGENCY DEPARTMENT NAME: Wolf Turcios AGE: 59 y.o. : 1960 VISIT DATE: 11/02/2019 CSN: [id number] PCP: García Gunn CNP Chief Complaint Patient presents with Syncope HPI 59 y/o WM smoker with h/o Htn and Copd presents with syncopal events Duration x1 day States he went to get my bladder looked at today When he got back home I was pushing a crate of water Became diaphoretic and lightheaded Associated lips tingling and SSCP- tingly Mild SOB +Syncopal event- witnessed by daughter No seizure activity reported Had anpther event a few minutes later Denies headache, neck pain, back pain or abdominal pain Denies melena or hematochezia Denies hemoptysis Normal PO intake recently; no recent medication changes Past Medical History: Diagnosis Date Asthma COPD (chronic obstructive pulmonary disease) (HCC) Emphysema/COPD (HCC) Essential hypertension 01/10/2017 Past Surgical History: Procedure Laterality Date GASTRIC ULCER PERFORATION REPAIR Family History Problem Relation Age of Onset Diabetes Mother Diabetes Father Throat cancer Sister Heart attack Maternal Grandmother Social History Socioeconomic History Marital status: Single Spouse name: Not on file Number of children: Not on file Years of education: Not on file Highest education level: Not on file Occupational History Not on file Social Needs Financial resource strain: Not on file Food insecurity Worry: Not on file Inability: Not on file Transportation needs Medical: Not on file Non-medical: Not on file Tobacco Use Smoking status: Current Every Day Smoker Packs/day: 0.50 Years: 40.00 Pack years: 20.00 Types: Cigarettes Smokeless tobacco: Never Used Substance and Sexual Activity Alcohol use: No Comment: occ Drug use: Not Currently Types: Cocaine Comment: clean 6 months Sexual activity: Not on file Lifestyle Physical activity Days per week: Not on file Minutes per session: Not on file Stress: Not on file Relationships Social connections Talks on phone: Not on file Gets together: Not on file Attends alevism service: Not on file Active member of club or organization: Not on file Attends meetings of clubs or organizations: Not on file Relationship status: Not on file Other Topics Concern Not on file Social History Narrative Not on file Previous Medications Medication Sig albuterol (VENTOLIN HFA) 90 mcg/actuation inhaler Inhale 2 (two) puffs every 6 (six) hours as needed for wheezing or shortness of breath (Only use if not using your nebulizer) . amLODIPine (NORVASC) 5 MG tablet Take 1 (one) tablet (5 mg total) by mouth daily . atorvastatin (LIPITOR) 20 MG tablet Take 1 (one) tablet (20 mg total) by mouth nightly . gabapentin (NEURONTIN) 400 MG capsule Take 1 (one) capsule (400 mg total) by mouth every 8 (eight) hours (Days supply per fill: 30). ipratropium-albuterol (DUO-NEB) 0.5-2.5 mg/3 ml nebulizer Take 3 mL by nebulization every 4 to 6 hours as needed for wheezing or shortness of breath . lisinopril (PRINIVIL,ZESTRIL) 5 MG tablet Take 1 (one) tablet (5 mg total) by mouth daily . pantoprazole (PROTONIX) 40 MG tablet Take 1 (one) tablet (40 mg total) by mouth daily Reasons: stomach ulcer. predniSONE (DELTASONE) 20 MG tablet One PO BID for three days then one PO q day for 3 days . umeclidinium (INCRUSE ELLIPTA) 62.5 mcg/actuation DsDv Inhale 62.5 mcg daily . Allergies Allergen Reactions Codeine Itching Review of Systems GEN: denies fevers, fatigue HEENT: denies sore throat CV: +CP RESP: denies SOB, cough ABD: denies abdominal pain : denies dysuria MSK: +chronic RT hip pain- baseline SKIN: denies rashes NEURO: denies headache PSYCH: denies SI Patient Vitals for the past 24 hrs: BP Temp Temp src Pulse Resp SpO2 11/02/19 1219 (!) 162/115 98.1 F (36.7 C) Oral 75 16 97 % Physical Exam VS reviewed and RN note reviewed GEN: no acute distress, disheveled appearing; nontoxic HEENT: MMM; atraumatic; no tongue lacs or arbasions; PERRLA- 3 mmBT; EOMI grossly NECK: supple CV: rrr; no appreciable murmurs; 2+ BT radial and DP pulses; no LE edema RESP: nonlabored resp; CTAB ABD: soft, nondistended; no TTP MSK: no recent deformities; able to lift BT LE off bed SKIN: warm, dry; no rashes NEURO: Aox3, CN II-XII intact grossly; motor 5/5 in BT UE and Le; SILT in all extremities; no pronator drift; normal speech without dysarthria PSYCH: cooperative Laboratory & Radiographic Imaging (if done): Results for orders placed or performed during the hospital encounter of 11/02/19 BMP Result Value Ref Range Sodium 138 135 - 145 mmol/L Potassium 4.0 3.5 - 5.1 mmol/L Chloride 101 98 - 108 mmol/L Bicarbonate 25 21 - 32 mmol/L Anion Gap 16 10 - 20 mmol/L Glucose 100 (H) 65 - 99 mg/dL BUN 16 8 - 25 mg/dL Creatinine 0.81 0.50 - 1.30 mg/dL eGFR 97 >=60 mL/min/1.73 m2 BUN/Creatinine Ratio 19.8 10.0 - 20.0 Calcium 9.1 8.4 - 10.2 mg/dL NT Pro BNP Result Value Ref Range NT-Pro BNP <50 0 - 300 pg/mL Troponin x 2 (Now and Repeat in 3 hours) Result Value Ref Range Troponin T 8 <=22 ng/L Troponin T Interpretation Normal POC Glucose Result Value Ref Range Glucose 90 65 - 99 mg/dL ECG 12 Lead Result Value Ref Range Ventricular Rate 75 BPM Atrial Rate 75 BPM P-R Interval 158 ms QRS Duration 94 ms Q-T Interval 364 ms QTC Calculation (Bezet) 406 ms P [place] -10 degrees R [place] 3 degrees T [place] -12 degrees POC Glucose Result Value Ref Range Glucose 90 65 - 99 mg/dL CBC Auto Differential Result Value Ref Range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 nausea and vomiting. Denies abdominal pain. Denies hematemesis. No diarrhea constipation. Last bowel movement was 3 days ago. Patient also reports shortness of breath that returned today. Patient did not take medication for his symptoms today. He states for the past 3 days he has also been having chills. Patient was recently admitted to the hospital for COPD exacerbation and discharged 2 days ago. He was discharged home on azithromycin which he states he is taking as prescribed. Patient denies chest pain today. Reports his breathing was feeling improved when he left the hospital a few days ago. Patient is negative for COVID-19 at that time. Patient is tachypneic and tachycardic here. Past Medical History: Diagnosis Date Asthma COPD (chronic obstructive pulmonary disease) ([facility]) Essential hypertension 01/10/2017 Hyperlipidemia Polysubstance abuse ([facility]) PUD (peptic ulcer disease) Thoracic aortic aneurysm ([facility]) TIA (transient ischemic attack) Tobacco Abuse Past Surgical History: Procedure Laterality Date EYE SURGERY GASTRIC ULCER PERFORATION REPAIR Family History Problem Relation Age of Onset Diabetes Mother Diabetes Father Throat cancer Sister Heart attack Maternal Grandmother Social History Socioeconomic History Marital status: Single Spouse name: Not on file Number of children: Not on file Years of education: Not on file Highest education level: Not on file Occupational History Not on file Social Needs Financial resource strain: Not on file Food insecurity Worry: Not on file Inability: Not on file Transportation needs Medical: Not on file Non-medical: Not on file Tobacco Use Smoking status: Current Every Day Smoker Packs/day: 0.50 Years: 39.00 Pack years: 19.50 Types: Cigarettes Smokeless tobacco: Never Used Substance and Sexual Activity Alcohol use: Not Currently Comment: occ Drug use: Not Currently Types: Crack cocaine, Fentanyl, Buprenorphine Comment: Crack cocaine last use 3 days ago, denies opiate use including IVDA Sexual activity: Not on file Lifestyle Physical activity Days per week: Not on file Minutes per session: Not on file Stress: Not on file Relationships Social connections Talks on phone: Not on file Gets together: Not on file Attends alevism service: Not on file Active member of club or organization: Not on file Attends meetings of clubs or organizations: Not on file Relationship status: Not on file Other Topics Concern Not on file Social History Narrative Not on file Previous Medications Medication Sig acetaminophen (TYLENOL) 500 MG tablet Take 500 mg by mouth every 8 (eight) hours as needed . albuterol (PROVENTIL) 2.5 mg /3 mL (0.083 %) nebulizer solution Take 3 mL (2.5 mg total) by nebulization every 6 (six) hours as needed for wheezing . albuterol 90 mcg/actuation inhaler Inhale 2 (two) puffs every 4 to 6 hours as needed for wheezing Reasons: chronic obstructive pulmonary disease. [] azithromycin (ZITHROMAX) 250 MG tablet Take 1 (one) tablet (250 mg total) by mouth daily for 3 days Start: 04/13/20. budesonide-formoteroL (SYMBICORT) 160-4.5 mcg/actuation inhaler Inhale 2 (two) puffs 2 (two) times a day . cyclobenzaprine (FLEXERIL) 5 MG tablet Take 5 mg by mouth 2 (two) times a day as needed for muscle spasms . diphenhydrAMINE (BENADRYL) 25 mg capsule Take 25 mg by mouth every 8 (eight) hours as needed for itching . guaiFENesin (MUCINEX) 600 mg 12 hr tablet Take 1 (one) tablet (600 mg total) by mouth every 12 (twelve) hours . hydroCHLOROthiazide (HYDRODIURIL) 12.5 MG tablet Take 12.5 mg by mouth daily . montelukast (SINGULAIR) 10 mg tablet Take 1 (one) tablet (10 mg total) by mouth nightly . nicotine (NICODERM CQ) 21 mg/[address] 1 patch on the skin daily . predniSONE (DELTASONE) 20 MG tablet Take 2 (two) tablets (40 mg total) by mouth daily with breakfast for 2 days, THEN 1 (one) tablet (20 mg total) daily with breakfast for 4 days, THEN 0.5 (one-half) tablet (10 mg total) daily with breakfast for 4 days. Start: 04/13/20. tiotropium bromide (Spiriva Respimat) 2.5 mcg/actuation Mist Inhale 1 spray daily . Allergies Allergen Reactions Codeine Itching Including all derivatives - is well tolerated when taking Benadryl prophylaxis Review of Systems Constitutional: Positive for appetite change and chills. Negative for fever. HENT: Negative for sore throat. Eyes: Negative for visual disturbance. Respiratory: Positive for cough and shortness of breath. Cardiovascular: Negative for chest pain, palpitations and leg swelling. Gastrointestinal: Positive for nausea and vomiting. Negative for abdominal pain, constipation, diarrhea and rectal pain. Genitourinary: Negative for dysuria, flank pain and hematuria. Musculoskeletal: Positive for arthralgias (chronic hip pain, unchanged). Negative for back pain and neck pain. Skin: Negative for rash. Neurological: Negative for dizziness, syncope and headaches. Psychiatric/Behavioral: Negative for confusion. All other systems reviewed and are negative. Patient Vitals for the past 24 hrs: BP Temp Temp src Pulse Resp SpO2 04/17/20 0724 18 97 % 04/17/20 0702 (!) 153/88 97.2 F (36.2 C) Oral 82 99 % 04/16/20 2211 16 04/16/20 1934 97 % 04/16/20 1909 (!) 156/95 98.5 F (36.9 C) Oral 96 98 % 04/16/20 1545 (!) 155/96 98.5 F (36.9 C) Oral 95 16 97 % Physical Exam Vitals signs and nursing note reviewed. Constitutional: General: He is not in acute distress. Appearance: He is well-developed. He is ill-appearing. He is not diaphoretic. Interventions: Nasal cannula in place. HENT: Head: Normocephalic and atraumatic. Right Ear: External ear normal. Left Ear: External ear normal. Eyes: General: No scleral icterus. Right eye: No discharge. Left eye: No discharge. Conjunctiva/sclera: Conjunctivae normal. Neck: Musculoskeletal: Normal range of motion. Cardiovascular: Rate and Rhythm: Regular rhythm. Tachycardia present. Heart sounds: Normal heart sounds. Pulmonary: Effort: Pulmonary effort is normal. Tachypnea present. No respiratory distress. Breath sounds: Decreased breath sounds present. No wheezing. Abdominal: General: There is no distension. Palpations: Abdomen is soft. Abdomen is not rigid. Tenderness: There is abdominal tenderness in the right upper quadrant and epigastric area. There is no guarding. Musculoskeletal: Right lower leg: No edema. Left lower leg: No edema. Skin: General: Skin is warm and dry. Findings: No erythema or rash. Neurological: Mental Status: He is alert and oriented to person, place, and time. He is not disoriented. GCS: GCS eye subscore is 4. GCS verbal subscore is 5. GCS motor subscore is 6. Psychiatric: Speech: Speech normal. Behavior: Behavior normal. Behavior is cooperative. Laboratory & Radiographic Imaging (if done): Results for orders placed or performed during the hospital encounter of 04/13/20 Blood Culture Aerobic/Anaerobic Specimen: Blood, Peripheral Result Value Ref Range Culture No Growth After 48 Hours Blood Culture Aerobic/Anaerobic Specimen: Blood, Peripheral Result Value Ref Range Culture No Growth After 48 Hours COVID-19/Influenza A,B Molecular Specimen: Nasopharyngeal; Swab Result Value Ref Range SARS-CoV-2 Not Detected Not Detected Influenza A Not Detected Not Detected Influenza B Not Detected Not Detected S. pneumoniae Urine Antigen Specimen: Urine, Random Result Value Ref Range Strep pneumo Ag, Urine Presumptive Negative for Pneumococcal pneumoniae Presumptive Negative for Pneumococcal pneumoniae Legionella Antigen, Urine Specimen: Urine, Random Result Value Ref Range Legionella Antigen Negative for Legionella antigen Negative for Legionella antigen MRSA DNA Amplified Probe Specimen: Nasal; Swab Result Value Ref Range MRSA DNA Amplified Probe MRSA NEGATIVE MRSA NEGATIVE Lavender Top Result Value Ref Range Extra Tube Hold for add-ons. Mint Green Top Result Value Ref Range Extra Tube Hold for add-ons. Gold Top Result Value Ref Range Extra Tube Hold for add-ons. Light Blue Top Result Value Ref Range Extra Tube Hold for add-ons. Munoz Top Result Value Ref Range Extra Tube Hold for add-ons. NT Pro BNP Result Value Ref Range NT-Pro BNP 739 (H) 0 - 300 pg/mL Chem 7 Result Value Ref Range Sodium 132 (L) 135 - 145 mmol/L Potassium 3.1 (L) 3.5 - 5.1 mmol/L Chloride 95 (L) 98 - 108 mmol/L Bicarbonate 28 21 - 32 mmol/L Creatinine 0.80 0.50 - 1.30 mg/dL Glucose 100 (H) 65 - 99 mg/dL BUN 8 8 - 25 mg/dL eGFR 98 >=60 mL/min/1.73 m2 BUN/Creatinine Ratio 10.0 10.0 - 20.0 Anion Gap 12 10 - 20 mmol/L Hepatic Function Panel (LFT) Result Value Ref Range Total Protein 6.3 6.0 - 8.0 g/dL Albumin 3.6 3.2 - 5.2 g/dL Total Bilirubin 0.5 0.0 - 1.3 mg/dL Bilirubin, Direct 0.2 0.0 - 0.4 mg/dL Alkaline Phosphatase 76 40 - 150 U/L AST 31 0 - 45 U/L ALT 26 0 - 40 U/L Lipase Result Value Ref Range Lipase 27 15 - 65 U/L Lactic Acid, Plasma Result Value Ref Range Lactic Acid 1.3 0.6 - 2.0 mmol/L PT/INR Result Value Ref Range Protime (PT) 13.9 11.8 - 14.3 seconds INR 1.1 0.8 - 1.1 Troponin Result Value Ref Range Troponin T 15 <=22 ng/L Troponin T Interpretation Normal TSH with Reflex Free T4 Result Value Ref Range TSH 0.67 0.27 - 4.20 mcIU/mL Urinalysis Result Value Ref Range Color, Urine Yellow Colorless, Yellow Clarity, Urine Clear Clear Specific [place] 1.020 1.005 - 1.025 pH, Urine 6.0 5.0 - 7.0 Protein, Urine Negative Negative mg/dL Glucose, Urine Negative Negative mg/dL Ketones, Urine Negative Negative mg/dL Bilirubin, Urine Negative Negative Urobilinogen, Urine 2.0 (A) <2.0 mg/dL Blood, Urine Negative Negative Nitrite, Urine Negative Negative Leukocyte Esterase, Urine Negative Negative WBCs, Urine 1 0 - 5 /hpf Bacteria, Urine None Seen None Seen /hpf Mucus, Urine Rare None Seen, Rare /lpf Blood Gas, Venous with Full Panel Result Value Ref Range pH, Venous 7.47 (H) 7.32 - 7.42 pCO2, Edison 41.6 41.0 - 51.0 mm Hg pO2, Edison 68 (H) 25 - 40 mm Hg HCO3, Edison 30.0 (H) 24.0 - 28.0 mmol/L Base Excess, Edison 6.1 (H) -2.0 - 2.0 O2 Sat, Edison 93.9 (H) 40.0 - 70.0 % Hemoglobin, Blood Gas 13.8 13.5 - 18.0 g/dL Hematocrit, Calculated 42.4 41.0 - 53.0 % O2 Hb 90.1 No established reference range % Carboxyhemoglobin 3.3 (H) <=1.5 % of total Hb Methemoglobin 0.7 0.0 - 2.0 % Sodium 134 (L) 135 - 145 mmol/L Potassium 3.3 (L) 3.5 - 5.1 mmol/L Ionized Calcium 4.1 (L) 4.5 - 5.3 mg/dL Glucose 102 (H) 65 - 99 mg/dL Lactic Acid 1.1 0.6 - 2.0 mmol/L Troponin Result Value Ref Range Troponin T 16 <=22 ng/L Delta Difference Troponin T 1 < = -/+ 7 change ng/L Interp Troponin T Delta Change No biomarker evidence of cardiac injury. Drugs of Abuse Screen, Urine Result Value Ref Range Amphetamine Screen, Urine None Detected None Detected Barbiturate Screen, Urine None Detected None Detected Benzodiazepine Screen, Urine None Detected None Detected Cannabinoid Screen, Urine None Detected None Detected Cocaine, Screen Urine Presumptive Positive (A) None Detected Methadone Screen, Urine None Detected None Detected Opiate Screen, Urine Presumptive Positive (A) None Detected Oxycodone Screen, Urine None Detected None Detected Buprenorphine, Ur Presumptive Positive (A) None Detected Fentanyl, Ur Presumptive Positive (A) None Detected CBC Result Value Ref Range WBC 13.92 (H) 4.50 - 11.00 K/mcL RBC 3.89 (L) 4.50 - 5.90 M/mcL Hemoglobin 12.3 (L) 13.5 - 17.5 g/dL Hematocrit 38.8 (L) 41.0 - 53.0 % MCV 99.7 80.0 - 100.0 fL MCH 31.6 26.0 - 34.0 pg MCHC 31.7 31.0 - 37.0 g/dL Platelets 243 150 - 400 K/mcL RDW - CV 13.3 11.6 - 14.8 % MPV 9.4 9.4 - 12.4 fL Nucleated RBC 0.0 % Nucleated RBC Abs 0.00 0.00 - 0.00 K/mcL Chem 7 Result Value Ref Range Sodium 137 135 - 145 mmol/L Potassium 3.9 3.5 - 5.1 mmol/L Chloride 102 98 - 108 mmol/L Bicarbonate 26 21 - 32 mmol/L Creatinine 0.87 0.50 - 1.30 mg/dL Glucose 84 65 - 99 mg/dL BUN 9 8 - 25 mg/dL eGFR 94 >=60 mL/min/1.73 m2 BUN/Creatinine Ratio 10.3 10.0 - 20.0 Anion Gap 13 10 - 20 mmol/L Troponin Once Result Value Ref Range Troponin T 8 <=22 ng/L Troponin T Interpretation Normal CBC Result Value Ref Range WBC 20.02 (H) 4.50 - 11.00 K/mcL RBC 3.60 (L) 4.50 - 5.90 M/mcL Hemoglobin 11.5 (L) 13.5 - 17.5 g/dL Hematocrit 35.4 (L) 41.0 - 53.0 % MCV 98.3 80.0 - 100.0 fL MCH 31.9 26.0 - 34.0 pg MCHC 32.5 31.0 - 37.0 g/dL Platelets 243 150 - 400 K/mcL RDW - CV 13.0 11.6 - 14.8 % MPV 9.6 9.4 - 12.4 fL Nucleated RBC 0.0 % Nucleated RBC Abs 0.00 0.00 - 0.00 K/mcL CBC Result Value Ref Range WBC 16.93 (H) 4.50 - 11.00 K/mcL RBC 3.55 (L) 4.50 - 5.90 M/mcL Hemoglobin 11.1 (L) 13.5 - 17.5 g/dL Hematocrit 35.1 (L) 41.0 - 53.0 % MCV 98.9 80.0 - 100.0 fL MCH 31.3 26.0 - 34.0 pg MCHC 31.6 31.0 - 37.0 g/dL Platelets 280 150 - 400 K/mcL RDW - CV 13.1 11.6 - 14.8 % MPV 9.4 9.4 - 12.4 fL Nucleated RBC 0.0 % Nucleated RBC Abs 0.00 0.00 - 0.00 K/mcL CBC Result Value Ref Range WBC 12.36 (H) 4.50 - 11.00 K/mcL RBC 3.73 (L) 4.50 - 5.90 M/mcL Hemoglobin 11.8 (L) 13.5 - 17.5 g/dL Hematocrit 37.1 (L) 41.0 - 53.0 % MCV 99.5 80.0 - 100.0 fL MCH 31.6 26.0 - 34.0 pg MCHC 31.8 31.0 - 37.0 g/dL Platelets 289 150 - 400 K/mcL RDW - CV 13.4 11.6 - 14.8 % MPV 9.0 (L) 9.4 - 12.4 fL Nucleated RBC 0.0 % Nucleated RBC Abs 0.00 0.00 - 0.00 K/mcL ECG 12 Lead Result Value Ref Range Ventricular Rate 113 BPM Atrial Rate 113 BPM P-R Interval 134 ms QRS Duration 86 ms Q-T Interval 292 ms QTC Calculation (Bezet) 400 ms P [place] 76 degrees R [place] 63 degrees T [place] 74 degrees ECG 12 Lead Result Value Ref Range Ventricular Rate 114 BPM Atrial Rate 114 BPM P-R Interval 136 ms QRS Duration 90 ms Q-T Interval 308 ms QTC Calculation (Bezet) 424 ms P [place] 76 degrees R [place] 57 degrees T [place] 74 degrees ECG 12 Lead Result Value Ref Range Ventricular Rate 112 BPM Atrial Rate 112 BPM P-R Interval 130 ms QRS Duration 82 ms Q-T Interval 318 ms QTC Calculation (Bezet) 434 ms P [place] 70 degrees R [place] 39 degrees T [place] 68 degrees ECG 12 Lead Result Value Ref Range Ventricular Rate 75 BPM Atrial Rate 75 BPM P-R Interval 144 ms QRS Duration 104 ms Q-T Interval 376 ms QTC Calculation (Bezet) 419 ms P [place] 67 degrees R [place] 65 degrees T [place] 63 degrees CBC Auto Differential Result Value Ref Range WBC 14.51 (H) 4.50 - 11.00 K/mcL RBC 4.54 4.50 - 5.90 M/mcL Hemoglobin 14.5 13.5 - 17.5 g/dL Hematocrit 43.6 41.0 - 53.0 % MCV 96.0 80.0 - 100.0 fL MCH 31.9 26.0 - 34.0 pg MCHC 33.3 31.0 - 37.0 g/dL Platelets 290 150 - 400 K/mcL RDW - CV 13.1 11.6 - 14.8 % MPV 9.0 (L) 9.4 - 12.4 fL Neutrophils 84.6 % Lymphocytes 7.4 % Monocytes 6.8 % Eosinophils 0.3 % Basophils 0.3 % IG Percent 0.60 % Neutrophils Abs 12.28 (H) 1.70 - 7.00 K/mcL Lymphocytes Abs 1.08 0.90 - 4.00 K/mcL Monocytes Abs 0.98 (H) 0.30 - 0.90 K/mcL Eosinophils Abs 0.05 0.00 - 0.50 K/mcL Basophils Abs 0.04 0.00 - 0.30 K/mcL IG Absolute 0.08 0.00 - 0.30 K/mcL Nucleated RBC 0.0 % Nucleated RBC Abs 0.00 0.00 - 0.00 K/mcL XR Chest 1 View Final Result Persistent multi lobar pneumonia, not significantly changed. Continued follow-up is recommended to ensure resolution. Workstation ID: [id number] Pulm Art and CT Abd Pelvis with IV contrast Final Result Negative for acute pulmonary embolism. Respiratory motion limits evaluation to the proximal segmental level. Multifocal pneumonia with trace left parapneumonic effusion. No acute abdominopelvic findings. RECOMMENDATIONS: Follow-up PA and lateral chest radiographs in 8 weeks. Workstation ID: [id number] XR Chest 1 View Final Result 1. New bilateral airspace disease. Differential considerations would include multifocal bacterial, or atypical/viral pneumonia. Workstation ID: [id number] Procedures MDM Number of Diagnoses or Management Options Diagnosis management comments: Mr. Turcios presented to the ED with chief complaint of nausea and vomiting. HPI as above. Patient also seen by Dr. Leal. Patient had taken his nasal cannula off during his stay and his oxygen levels dropped down to 80% on room air therefore he was placed on nasal cannula again. He states he does not wear home oxygen. He has a known history of COPD. During his stay he did develop left-sided rib/chest pain. He received DuoNeb breathing treatment as well as 1 L IV fluid bolus and Zofran. This did improve his nausea. For the development of his left-sided chest pain he received morphine as well as Benadryl to help with any side effect of morphine. Initial troponin 15, delta troponin 16. VBG shows pH 7.47 with bicarb of 30, potassium 3.3, lactic acid 1.1. Blood cultures in process. BNP elevated at 739. No known history of CHF. BMP shows hyponatremia 132, hypokalemia 3.1, bicarb 28, glucose 100, no RENUKA. Plasma lactic acid 1.3. CBC shows leukocytosis with WBC 14 compared to 7 yesterday, no anemia. Initial chest x-ray today shows new bilateral airspace disease. Differential considerations would include multifocal bacterial or atypical/viral pneumonia. Ordered CT PE study as well as CT abdomen pelvis IV contrast due to left-sided chest pain, shortness of breath, hypoxia as well as abdominal pain in setting of nausea and vomiting. Due to concern for infection on chest x-ray, antibiotics were ordered. Anticipate patient to be admitted for further evaluation. May see attending physician's addendum for final disposition pending CT scans. Patient Progress Patient progress: stable ED Course as of Apr 17 1401 ThuApr 13, 2020 1656 In this time of COVID19 pandemic, this PA did wear a mask throughout pt's ED visit for precaution. Pt wore a mask as well. [KA] 1730 POTASSIUM(!): 3.1 [KA] 1826 Upon reevaluation at this time patient is hypoxic on room air after he removed the nasal cannula for breathing treatment. Breathing treatment is completed and SPO2 dropped down to 80%. 4 L nasal cannula oxygen was placed which improved SPO2 to 92%. Pt is also complaining of left rib pain now. [KA] 185 WBC(!): 14.51 [KA] 2031 SARS-CoV-2: Not Detected [KA] ED Course User Index [KA] Bethany Nguyen PA-C . Clinical Impression: 1. Hypoxia 2. Non-intractable vomiting with nausea, unspecified vomiting type 3. Chest pain, unspecified type 4. Hypokalemia 5. Pneumonia due to infectious organism, unspecified laterality, unspecified part of lung 6. Multifocal pneumonia 7. Sepsis, due to unspecified organism, unspecified whether acute organ dysfunction present (HCC) 8. Acute respiratory failure with hypoxia (HCC) 9. COPD exacerbation (HCC) 10. Chest pain, atypical 11. Nausea and vomiting, intractability of vomiting not specified, unspecified vomiting type 12. Cigarette nicotine dependence without complication 13. Cocaine use disorder (HCC) ED Disposition ED Disposition Condition Comment Hospitalize Reason for inpatient over two midnights: Multifocal pneumonia, sepsis, acute respiratory with hypoxia Follow-up Information 1. Karma Mark CNP. Specialty: Nurse Practitioner Uli Mcnally [facility] [id number] 2. Michelle Lindsey CNP. Specialties: Pulmonology, Pulmonary Disease, Critical Care Medicine, Nurse Practitioner Why: Tele pulm follow up: Telehealth Appointment with Michelle Lindsey CNP Jun 2:00 [place] [phone] 3. [facility]. Why: Open 24 hours 7 days a week. Walk-in or call for admission. [address] [phone] Contact information for after-discharge care Follow-up information has not been specified. New Prescriptions This print group is not available in inpatient encounters. Please contact a global position system technician. Bethany Nguyen PA-C 04/13/202028 Bethany Nguyen PA-C 04/17/20 1401 Pt arrives via medic with c/o nausea, vomiting, chills for the past three days, was seen here for the same thing three days ago. Covid was negative. Pt reports worse SOB. Hx of COPD. Pt grunting and moaning. Bed: 23 Expected date: Expected time: Means of arrival: Comments: Medic 14 nausea fulp documented in this encounter [facility] EMERGENCY MEDICINE NOTE PCP: Karma Mark CNP Encounter Date: 05/28/20 Chief Complaint: Chief Complaint Patient presents with Shortness of Breath History of Presenting Illness: Wolf Turcios is a 60 y.o. male with a past medical history that includes has a past medical history of Asthma, COPD (chronic obstructive pulmonary disease) ([facility]), Essential hypertension (01/10/2017), Hyperlipidemia, Polysubstance abuse ([facility]), PUD (peptic ulcer disease), Thoracic aortic aneurysm ([facility]), TIA (transient ischemic attack), and Tobacco Abuse.. Patient reports SOB, started last night, a/w a sensation that his lungs are tight, not improved with breathing treatments or neb. Smokes, including yesterday. SOB worse w/ exertion, lying flat. No back pain, no chest pain. Baseline right hip pain, no change. No numbness, weakness. No fever, nausea, vomiting, hemopytisis. Cough worsening, phlegm is now green not clear/white. Patient reports he was diagnosed with COVID on 04/23/20, had a mild case. Was in NH after DC from here for pneumonia, but checked himself out about May 10 bc it was a nuthouse. ED Course/ Medical Decision Making 60-year-old male with complex medical history presenting with difficulty breathing. Given the exertional component I was initially concerned for heart failure, but he has no history of that and he has no other symptoms of heart failure including no leg swelling. He is not oxygen requiring here, though he does report that it helps him when he arrives. His lung exam is remarkably clear without any wheezing or otherwise decreased air movement. He does however, have increased work of breathing which is concerning. He also has tachycardia in the 120s, though that could be related to the albuterol he received here. This does not appear to be ACS. Patient offered hospitalization for further observation given his recent complex past medical history and hospitalization, but he deferred and said that he would return should any of his symptoms worsen. I discussed with the patient at the bedside the results of any laboratory testing and imaging performed. I discussed with them that if their symptoms worsened or had any new symptoms such as: increasing pain, numbness, weakness, fever, or any other new or unusual symptoms that they should return to the emergency department, as things can and do change with time. The patient indicated understanding of the discharge instructions and had no further questions. The patient will attempt to obtain follow up for reevaluation as I recommended as well as any additional instructions discussed. Patient was provided with a copy of their discharge instructions, follow-up, and reasons to return. Disposition: DISCHARGED IMPRESSION: 1. Acute exacerbation of chronic obstructive pulmonary disease (COPD) (HCC) 2. Tachycardia Follow-Up Plan Follow-up Information 1. Karma Mark CNP. Specialty: Nurse Practitioner [address] [place] [phone] Contact information for after-discharge care Follow-up information has not been specified. . ([employer] Software was used to transcribe this note) ED Course: ED Course as of May 28 1505 Mon May 28, 2020 1216 pH, Venous(!): 7.31 [GS] 1216 pCO2, Edison(!): 61.0 [GS] 1216 Co2 increased from prior [GS] 1253 EKG interpreted by me taken at 1157 shows a sinus rhythm with a rate of 118, normal axis, T wave inversion in V1, aVL, V2. No ST elevations or depressions, QTC 451, nonspecific EKG [GS] 1414 Chest x-ray interpreted by me shows no acute opacities or effusions [GS] 1503 Patient reports feeling dramatically better after duo nebs. He is satting normally on room air. Ambulating without difficulty, tachycardia is significantly improved, nearly totally resolved, which is surprising given the number of albuterol treatments he has had. No chest pain, no new symptoms. [GS] ED Course User Index [GS] Heriberto Billings MD Diagnostics Laboratory (if any, during ED visit): Labs Reviewed BLOOD GAS, VBG WITH FULL PANEL - Abnormal; Notable for the following components: Result Value pH, Venous 7.31 (*) pCO2, Edison 61.0 (*) HCO3, Edison 30.0 (*) Base Excess, Edison 2.2 (*) Carboxyhemoglobin 2.9 (*) Glucose 136 (*) All other components within normal limits BASIC METABOLIC PANEL - Abnormal; Notable for the following components: Glucose 134 (*) All other components within normal limits Narrative: The eGFR should be used for monitoring renal function only and not for medication dosing. CBC WITH AUTO DIFFERENTIAL - Abnormal; Notable for the following components: MPV 9.0 (*) Eosinophils Abs 1.13 (*) All other components within normal limits NT PRO BNP - Normal Narrative: Pride Study Cut-offs Rule In: < /= 50 Years >450 pg/mL 51 Years - 75 Years >900 pg/mL 76 Years - 99 Years >1800 pg/mL Rule Out: All patients <300 pg/mL HEPATIC FUNCTION PANEL - Normal TSH WITH REFLEX FREE T4 - Normal LACTIC ACID, PLASMA - Normal BLOOD CULTURE AEROBIC/ANAEROBIC BLOOD CULTURE AEROBIC/ANAEROBIC CBC AND DIFFERENTIAL Narrative: The following orders were created for panel order CBC w/ Diff. Procedure Abnormality Status --------- ------ CBC Auto Differential[[id number]] Abnormal Final result Please view results for these tests on the individual orders. RADIOGRAPHIC IMAGING (if any, during ED visit): XR Chest 1 View Final Result Improved bilateral airspace opacities. Workstation ID: [id number] MEDICATIONS ORDERED/GIVEN (if any, during ED visit): Medications sodium chloride (PF) (NS) flush 5 mL (has no administration in time range) And sodium chloride 0.9% (NS) (has no administration in time range) ipratropium-albuteroL (DUO-NEB) 0.5-2.5 mg/3 ml nebulizer solution 3 mL (3 mL Inhalation Given 05/28/20 1234) azithromycin (ZITHROMAX) tablet 1,000 mg (1,000 mg Oral Given 05/28/20 1250) dexAMETHasone sodium phos (PF) injection 10 mg (10 mg Intravenous Given 05/28/20 1300) MDM Review of Systems: Review of Systems Constitutional: Negative for fever. HENT: Negative for drooling. Eyes: Negative for discharge. Respiratory: Negative for stridor. Gastrointestinal: Negative for anal bleeding. Endocrine: Negative for polyphagia. Genitourinary: Negative for hematuria. Skin: Negative for rash. Neurological: Negative for facial asymmetry. Hematological: Does not bruise/bleed easily. Psychiatric/Behavioral: Negative for behavioral problems. Past Medical, Surgical, Family, and Social History: Past Medical History: Past Medical History: Diagnosis Date Asthma COPD (chronic obstructive pulmonary disease) (HCC) Essential hypertension 01/10/2017 Hyperlipidemia Polysubstance abuse (HCC) PUD (peptic ulcer disease) Thoracic aortic aneurysm (HCC) TIA (transient ischemic attack) Tobacco Abuse Past medical history reviewed. Past Surgical History: Past Surgical History: Procedure Laterality Date EYE SURGERY GASTRIC ULCER PERFORATION REPAIR Past surgical history reviewed. Family History: Family History Problem Relation Age of Onset Diabetes Mother Diabetes Father Throat cancer Sister Heart attack Maternal Grandmother Family history reviewed. Social History: Social History Socioeconomic History Marital status: Single Spouse name: Not on file Number of children: Not on file Years of education: Not on file Highest education level: Not on file Occupational History Not on file Social Needs Financial resource strain: Not on file Food insecurity Worry: Not on file Inability: Not on file Transportation needs Medical: Not on file Non-medical: Not on file Tobacco Use Smoking status: Current Every Day Smoker Packs/day: 0.50 Years: 39.00 Pack years: 19.50 Types: Cigarettes Smokeless tobacco: Never Used Substance and Sexual Activity Alcohol use: Not Currently Comment: occ Drug use: Not Currently Types: Crack cocaine, Fentanyl, Buprenorphine Comment: Crack cocaine last use 3 days ago, denies opiate use including IVDA Sexual activity: Not on file Lifestyle Physical activity Days per week: Not on file Minutes per session: Not on file Stress: Not on file Relationships Social connections Talks on phone: Not on file Gets together: Not on file Attends alevism service: Not on file Active member of club or organization: Not on file Attends meetings of clubs or organizations: Not on file Relationship status: Not on file Other Topics Concern Not on file Social History Narrative Not on file Social history reviewed. Allergies and Medications: Allergies: Allergies Allergen Reactions Codeine Itching Including all derivatives - is well tolerated when taking Benadryl prophylaxis Medications: Patient's Medications New Prescriptions No medications on file Previous Medications ACETAMINOPHEN (TYLENOL) 500 MG TABLET Take 500 mg by mouth every 8 (eight) hours as needed . ALBUTEROL (PROVENTIL) 2.5 MG /3 ML (0.083 %) NEBULIZER SOLUTION Take 3 mL (2.5 mg total) by nebulization every 6 (six) hours as needed for wheezing . ALBUTEROL 90 MCG/ACTUATION INHALER Inhale 2 (two) puffs every 4 to 6 hours as needed for wheezing Reasons: chronic obstructive pulmonary disease. BUDESONIDE-FORMOTEROL (SYMBICORT) 160-4.5 MCG/ACTUATION INHALER Inhale 2 (two) puffs 2 (two) times a day . CYCLOBENZAPRINE (FLEXERIL) 5 MG TABLET Take 5 mg by mouth 2 (two) times a day as needed for muscle spasms . HYDROCHLOROTHIAZIDE (HYDRODIURIL) 12.5 MG TABLET Take 12.5 mg by mouth daily . MONTELUKAST (SINGULAIR) 10 MG TABLET Take 1 (one) tablet (10 mg total) by mouth nightly . NICOTINE (NICODERM CQ) 21 MG/[address] 1 patch on the skin daily . TIOTROPIUM BROMIDE (SPIRIVA RESPIMAT) 2.5 MCG/ACTUATION MIST Inhale 1 spray daily . Modified Medications No medications on file Discontinued Medications No medications on file Physical Exam: Vital Signs BP (!) 154/86 (BP Location: Right arm, Patient Position: Sitting) Pulse (!) 127 Temp 98.4 F (36.9 C) (Oral) Resp (!) 24 Ht 5' 2 Wt 65.8 kg (145 lb) SpO2 95% BMI 26.52 kg/m Physical Exam Vitals signs and nursing note reviewed. Constitutional: General: He is not in acute distress. Appearance: He is not toxic-appearing. HENT: Head: Normocephalic and atraumatic. Right Ear: External ear normal. Left Ear: External ear normal. Eyes: General: No scleral icterus. Conjunctiva/sclera: Conjunctivae normal. Neck: Musculoskeletal: Normal range of motion and neck supple. Cardiovascular: Rate and Rhythm: Tachycardia present. Heart sounds: Normal heart sounds. Pulmonary: Breath sounds: Normal breath sounds. No wheezing. Comments: Increased work of breathing, appears uncomfortable Abdominal: General: There is no distension. Palpations: Abdomen is soft. There is no mass. Tenderness: There is no abdominal tenderness. There is no guarding or rebound. Musculoskeletal: General: No swelling or tenderness. Skin: Capillary Refill: Capillary refill takes less than 2 seconds. Findings: No rash. Neurological: General: No focal deficit present. Mental Status: He is oriented to person, place, and time. Psychiatric: Mood and Affect: Mood normal. Behavior: Behavior normal. Vital Signs During ED Visit (as charted by nursing) Patient Vitals for the past 24 hrs: BP Temp Temp src Pulse Resp SpO2 Height Weight 05/28/20 1152 (!) 154/86 98.4 F (36.9 C) Oral (!) 127 (!) 24 95 % 5' 2 65.8 kg (145 lb) PROCEDURES (if any, during ED visit): Procedures Heriberto Billings MD 05/28/20 1506 Pt arrives via medic with c/o SOB that started last night, pt with hx of COPD. In route received Atrovent and albuterol. Pt at home has done rounds of albuterol and inhaler without relief. Pt is not able to speak in complete sentences, labored. No confirmed covid test in chart, pt reports halfway test was positive. Bed: 25 Expected date: Expected time: Means of arrival: Comments: M22; SARAH; Sontag documented in this encounter Patient okay to eat per Dr. Rebolledo. Patient provided with boxed meal. ED PROVIDER NOTE [facility] EMERGENCY [facility]PART[facility] NAME: Wolf Turcios AGE: 60 y.o. 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 States he used his inhaler at home without relief, he is 90 to 92% on room air when he arrives. Does not wear oxygen at home, states that his PCP had started him on azithromycin 2 days ago symptoms have not improved, he does have a productive cough present. He denies any pain with deep breathing. States he stopped smoking 6 days ago. Past Medical History: Diagnosis Date Asthma COPD (chronic obstructive pulmonary disease) (HCC) Emphysema of lung (HCC) Essential hypertension 01/10/2017 Hyperlipidemia Polysubstance abuse (HCC) PUD (peptic ulcer disease) Thoracic aortic aneurysm (HCC) TIA (transient ischemic attack) Tobacco Abuse Past Surgical History: Procedure Laterality Date EYE SURGERY GASTRIC ULCER PERFORATION REPAIR Family History Problem Relation Age of Onset Diabetes Mother Diabetes Father Throat cancer Sister Heart attack Maternal Grandmother Social History Socioeconomic History Marital status: Single Spouse name: Not on file Number of children: Not on file Years of education: Not on file Highest education level: Not on file Occupational History Not on file Social Needs Financial resource strain: Not on file Food insecurity Worry: Not on file Inability: Not on file Transportation needs Medical: Not on file Non-medical: Not on file Tobacco Use Smoking status: Current Every Day Smoker Packs/day: 0.25 Years: 39.00 Pack years: 9.75 Types: Cigarettes Smokeless tobacco: Never Used Tobacco comment: Trying to cut back, 8 cigs per day Substance and Sexual Activity Alcohol use: Not Currently Comment: 1 beer per month Drug use: Not Currently Types: Crack cocaine Comment: 1.5 years clean Sexual activity: Not on file Lifestyle Physical activity Days per week: Not on file Minutes per session: Not on file Stress: Not on file Relationships Social connections Talks on phone: Not on file Gets together: Not on file Attends alevism service: Not on file Active member of club or organization: Not on file Attends meetings of clubs or organizations: Not on file Relationship status: Not on file Other Topics Concern Not on file Social History Narrative Not on file Previous Medications Medication Sig albuterol (PROVENTIL) 2.5 mg /3 mL (0.083 %) nebulizer solution Take 3 mL (2.5 mg total) by nebulization every 4 (four) hours as needed for wheezing Dx: J44.0 . albuterol 90 mcg/actuation inhaler Inhale 2 (two) puffs every 4 (four) hours as needed for wheezing Reasons: chronic obstructive pulmonary disease. azithromycin (ZITHROMAX) 250 MG tablet Take 2 tabs today then 1 tablet daily until gone. . Banophen 25 mg capsule Take 25 mg by mouth daily as needed for allergies . budesonide-formoteroL (SYMBICORT) 160-4.5 mcg/actuation inhaler Inhale 2 (two) puffs 2 (two) times a day . buprenorphine-nalOXone (SUBOXONE) 8-[address] 1 tablet under the tongue every morning . cyclobenzaprine (FLEXERIL) 5 MG tablet Take 10 mg by mouth 2 (two) times a day as needed for muscle spasms . guaiFENesin (Mucinex) 1,200 mg Ta12 Take 1,200 mg by mouth every morning . hydroCHLOROthiazide (HYDRODIURIL) 12.5 MG tablet Take 12.5 mg by mouth every morning . loratadine (CLARITIN) 10 mg tablet Take 10 mg by mouth every morning . montelukast (SINGULAIR) 10 mg tablet Take 1 (one) tablet (10 mg total) by mouth nightly . nicotine (NICODERM CQ) 21 mg/[address] 1 patch on the skin daily as needed . nicotine polacrilex (NICORETTE) 4 MG gum Apply 4 mg to the mouth or throat as needed for smoking cessation . tiotropium bromide (Spiriva Respimat) 2.5 mcg/actuation Mist Inhale 2 (two) puffs daily . Allergies Allergen Reactions Tylenol [Acetaminophen] Urinary tract infection Codeine Itching Including all derivatives - is well tolerated when taking Benadryl prophylaxis Review of Systems Constitutional: Negative for fever. HENT: Negative for congestion. Eyes: Negative for photophobia. Respiratory: Positive for shortness of breath. Cardiovascular: Negative for chest pain. Gastrointestinal: Negative for abdominal pain. Endocrine: Negative for cold intolerance and heat intolerance. Genitourinary: Negative for dysuria. Musculoskeletal: Negative for back pain. Skin: Negative for rash. Neurological: Negative for headaches. Psychiatric/Behavioral: Positive for confusion. Patient Vitals for the past 24 hrs: BP Temp Temp src Pulse Resp SpO2 07/05/20 1712 129/79 94 (!) 24 97 % 07/05/20 1711 96 % 07/05/20 1540 (!) 128/97 (!) 103 (!) 20 96 % 07/05/20 1440 128/86 98.6 F (37 C) Oral (!) 106 18 96 % Physical Exam Vitals signs and nursing note reviewed. Constitutional: Appearance: Normal appearance. He is well-developed. HENT: Head: Normocephalic. Neck: Musculoskeletal: Normal range of motion and neck supple. Cardiovascular: Rate and Rhythm: Regular rhythm. Tachycardia present. Pulses: Normal pulses. Radial pulses are 2+ on the right side and 2+ on the left side. Heart sounds: Normal heart sounds, S1 normal and S2 normal. Pulmonary: Effort: Pulmonary effort is normal. Tachypnea present. Breath sounds: Decreased air movement present. Wheezing present. Abdominal: General: Bowel sounds are normal. Palpations: Abdomen is soft. Tenderness: There is no abdominal tenderness. Skin: General: Skin is warm and dry. Capillary Refill: Capillary refill takes less than 2 seconds. Neurological: Mental Status: He is alert and oriented to person, place, and time. GCS: GCS eye subscore is 4. GCS verbal subscore is 5. GCS motor subscore is 6. Sensory: No sensory deficit. Psychiatric: Speech: Speech normal. Behavior: Behavior normal. Behavior is cooperative. Thought Content: Thought content normal. Laboratory & Radiographic Imaging (if done): Results for orders placed or performed during the hospital encounter of 07/05/20 Lavender Top Result Value Ref Range Extra Tube Hold for add-ons. Mint Green Top Result Value Ref Range Extra Tube Hold for add-ons. Light Blue Top Result Value Ref Range Extra Tube Hold for add-ons. Munoz Top Result Value Ref Range Extra Tube Hold for add-ons. BMP Result Value Ref Range Sodium 138 135 - 145 mmol/L Potassium 4.0 3.5 - 5.1 mmol/L Chloride 98 98 - 108 mmol/L Bicarbonate 29 21 - 32 mmol/L Anion Gap 15 10 - 20 mmol/L Glucose 93 65 - 99 mg/dL BUN 17 8 - 25 mg/dL Creatinine 0.86 0.50 - 1.30 mg/dL eGFR 94 >=60 mL/min/1.73 m2 BUN/Creatinine Ratio 19.8 10.0 - 20.0 Calcium 9.4 8.4 - 10.2 mg/dL Blood Gas, Venous with Full Panel Result Value Ref Range pH, Venous 7.32 7.32 - 7.42 pCO2, Edison 61.5 (H) 41.0 - 51.0 mm Hg pO2, Edison 24 (L) 25 - 40 mm Hg HCO3, Edison 30.8 (H) 24.0 - 28.0 mmol/L Base Excess, Edison 3.2 (H) -2.0 - 2.0 O2 Sat, Edison 36.8 (L) 40.0 - 70.0 % Hemoglobin, Blood Gas 15.4 13.5 - 17.5 g/dL Hematocrit, Calculated 47.3 41.0 - 53.0 % O2 Hb 35.8 No established reference range % Carboxyhemoglobin 2.3 (H) <=1.5 % of total Hb Methemoglobin 0.5 0.0 - 2.0 % Sodium 137 135 - 145 mmol/L Potassium 3.7 3.5 - 5.1 mmol/L Ionized Calcium 4.7 4.5 - 5.3 mg/dL Glucose 91 65 - 99 mg/dL Lactic Acid 1.3 0.6 - 2.0 mmol/L FIO2 21 %/L Oxygen Delivery Device Room Air ECG 12 Lead Result Value Ref Range Ventricular Rate 116 BPM Atrial Rate 116 BPM P-R Interval 142 ms QRS Duration 88 ms Q-T Interval 314 ms QTC Calculation (Bezet) 436 ms P [place] 85 degrees R [place] 72 degrees T [place] 85 degrees CBC Auto Differential Result Value Ref Range WBC 18.16 (H) 4.50 - 11.00 K/mcL RBC 4.80 4.50 - 5.90 M/mcL Hemoglobin 15.1 13.5 - 17.5 g/dL Hematocrit 47.1 41.0 - 53.0 % MCV 98.1 80.0 - 100.0 fL MCH 31.5 26.0 - 34.0 pg MCHC 32.1 31.0 - 37.0 g/dL Platelets 303 150 - 400 K/mcL RDW - CV 13.1 11.6 - 14.8 % MPV 9.6 9.4 - 12.4 fL Neutrophils 80.0 % Lymphocytes 8.1 % Monocytes 7.7 % Eosinophils 3.2 % Basophils 0.6 % IG Percent 0.40 % Neutrophils Abs 14.54 (H) 1.70 - 7.00 K/mcL Lymphocytes Abs 1.47 0.90 - 4.00 K/mcL Monocytes Abs 1.39 (H) 0.30 - 0.90 K/mcL Eosinophils Abs 0.58 (H) 0.00 - 0.50 K/mcL Basophils Abs 0.10 0.00 - 0.30 K/mcL IG Absolute 0.08 0.00 - 0.30 K/mcL Nucleated RBC 0.0 % Nucleated RBC Abs 0.00 0.00 - 0.00 K/mcL CT Chest Without Contrast Final Result 1. Bibasilar atelectasis with decreased right middle and right lower lobe consolidative opacities consistent with improving pneumonia since 04/13/2020. 2. Severe emphysema. 3. No central obstructing airway lesion. Workstation ID: [id number] XR Chest 1 View Preliminary Result Enlarged nodular density in the right lower lobe. Differential includes scarring, recurrent pneumonia, or neoplasm. RM/lab Workstation ID: [id number] Procedures MDM Patient is alert oriented 60-year-old male that arrives to the emergency department for evaluation. Patient had previously had pneumonia through an ECF in April, not retested today. VBG was completed, white count of 18.16 not currently on steroids but is on antibiotic azithromycin through his PCP, pulse ox was 90 to 92% concern for possible worsening pneumonia he denies any chest pain or pain with deep breathing to be concern for pulmonary embolism at this time, he received Solu-Medrol and breathing treatments which did improve his lung sounds but he is still tachypneic. Chest x-ray showed a nodular density in the right lower lobe concerning for either recurrent pneumonia or neoplasm, at this time a CT of his chest pending. I have signed out Wolf Turcios's Emergency Department care to Dr. Rebolledo. We discussed the history, physical, completed/pending test results and current treatment plan. Please refer to Dr. Rebolledo's chart for the patient s remaining Emergency Department course, final disposition and clinical impression(s). . Clinical Impression: No diagnosis found. ED Disposition None Follow-up Information Follow-up information has not been specified. Contact information for after-discharge care Follow-up information has not been specified. Alcides Call CNP 07/05/201850 Pt arrives to ED with c/o SOB x3 days. Pt states that he does have hx of COPD. 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 Pt 92% on RA. Pt states that he did have COVID approximately 2 months ago. Pt was started on ATB two days ago by PCP. Pt does have a productive cough. Bed: 33 Expected date: Expected time: Means of arrival: Comments: Medic 14, rasheed, sob documented in this encounter Pt given dinah pass and walker prior to discharge. Pt ambulates to exit with walker without difficulty. Ambulated patient from bed to door and back. Patient was able to ambulate with minimal assistance. Patient dragging right foot along floor to catch up with the step of the left foot. Patient gait uneven but steady. Pt. States his hip pain feels like the pain he has been dealing with for the last 3-4 months but worse because he states he needs surgery. ED PROVIDER NOTE [facility] EMERGENCY DEPARTMENT NAME: Wolf Turcios AGE: 60 y.o. 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 60-year-old male patient with history of asthma, COPD, hypertension, hyperlipidemia, TIA and polysubstance abuse presents after a fall. States his prior to arrival he slipped on the ice fell on his right hip. States he tried to brace himself with a nearby building and helped himself to the ground. Did land on his right knee and his right hip. Has chronic low back pain but denies falling on his back. He did not hit his head. Denies any neck pain. Has numbness and tingling to his left leg which is not new for him. States this is due to has sciatica. No loss of bowel or bladder. No saddle anesthesia. Rates his pain a 10 out of 10 describes it as sharp and aching. Has been ambulatory since the fall. Pain is worse with any movement. Past Medical History: Diagnosis Date Asthma COPD (chronic obstructive pulmonary disease) (HCC) Emphysema of lung (HCC) Essential hypertension 01/10/2017 Hyperlipidemia Polysubstance abuse (HCC) PUD (peptic ulcer disease) Thoracic aortic aneurysm (HCC) TIA (transient ischemic attack) Tobacco Abuse Past Surgical History: Procedure Laterality Date EYE SURGERY GASTRIC ULCER PERFORATION REPAIR Family History Problem Relation Age of Onset Diabetes Mother Diabetes Father Throat cancer Sister Heart attack Maternal Grandmother Social History Socioeconomic History Marital status: Single Spouse name: Not on file Number of children: Not on file Years of education: Not on file Highest education level: Not on file Occupational History Not on file Social Needs Financial resource strain: Not on file Food insecurity Worry: Not on file Inability: Not on file Transportation needs Medical: Not on file Non-medical: Not on file Tobacco Use Smoking status: Current Every Day Smoker Packs/day: 0.25 Years: 39.00 Pack years: 9.75 Types: Cigarettes Smokeless tobacco: Never Used Tobacco comment: Trying to cut back, 8 cigs per day Substance and Sexual Activity Alcohol use: Not Currently Comment: 1 beer per month Drug use: Not Currently Types: Crack cocaine Comment: 1.5 years clean Sexual activity: Not on file Lifestyle Physical activity Days per week: Not on file Minutes per session: Not on file Stress: Not on file Relationships Social connections Talks on phone: Not on file Gets together: Not on file Attends alevism service: Not on file Active member of club or organization: Not on file Attends meetings of clubs or organizations: Not on file Relationship status: Not on file Other Topics Concern Not on file Social History Narrative Not on file Previous Medications Medication Sig albuterol (PROVENTIL) 2.5 mg /3 mL (0.083 %) nebulizer solution Take 3 mL (2.5 mg total) by nebulization every 4 (four) hours as needed for wheezing Dx: J44.0 . albuterol 90 mcg/actuation inhaler Inhale 2 (two) puffs every 4 (four) hours as needed for wheezing Reasons: chronic obstructive pulmonary disease. azithromycin (ZITHROMAX) 250 MG tablet Take 2 tabs today then 1 tablet daily until gone. . Banophen 25 mg capsule Take 25 mg by mouth daily as needed for allergies . budesonide-formoteroL (SYMBICORT) 160-4.5 mcg/actuation inhaler Inhale 2 (two) puffs 2 (two) times a day . buprenorphine-nalOXone (SUBOXONE) 8-[address] 1 tablet under the tongue every morning . cyclobenzaprine (FLEXERIL) 10 MG tablet Take 10 mg by mouth 2 (two) times a day as needed for muscle spasms . docusate sodium (COLACE) 100 MG capsule Take 100 mg by mouth 2 (two) times a day . guaiFENesin (Mucinex) 1,200 mg Ta12 Take 1,200 mg by mouth every morning . hydroCHLOROthiazide (HYDRODIURIL) 12.5 MG tablet Take 12.5 mg by mouth every morning . loratadine (CLARITIN) 10 mg tablet Take 10 mg by mouth every morning . montelukast (SINGULAIR) 10 mg tablet Take 1 (one) tablet (10 mg total) by mouth nightly . nicotine (NICODERM CQ) 21 mg/[address] 1 patch on the skin daily as needed . nicotine polacrilex (NICORETTE) 4 MG gum Apply 4 mg to the mouth or throat as needed for smoking cessation . predniSONE (DELTASONE) 10 MG tablet Take 5 (five) tablets (50 mg total) by mouth daily for 5 days Start: 07/06/20. tiotropium bromide (Spiriva Respimat) 2.5 mcg/actuation Mist Inhale 2 (two) puffs daily . Allergies Allergen Reactions Tylenol [Acetaminophen] Urinary tract infection Codeine Itching Including all derivatives - is well tolerated when taking Benadryl prophylaxis Review of Systems Constitutional: Negative for chills. HENT: Negative for congestion. Eyes: Negative for photophobia. Respiratory: Negative for shortness of breath. Cardiovascular: Negative for chest pain. Gastrointestinal: Negative for abdominal pain. Genitourinary: Negative for dysuria. Musculoskeletal: Positive for arthralgias and back pain. Skin: Negative for rash. Allergic/Immunologic: Negative for immunocompromised state. Neurological: Negative for headaches. Hematological: Does not bruise/bleed easily. Psychiatric/Behavioral: Negative for confusion. All other systems reviewed and are negative. Patient Vitals for the past 24 hrs: BP Temp Pulse Resp SpO2 07/10/20 0929 (!) 151/114 (!) 100 14 100 % 07/10/20 0927 98.1 F (36.7 C) Physical Exam Vitals signs and nursing note reviewed. Constitutional: General: He is not in acute distress. Appearance: He is not ill-appearing. HENT: Head: Normocephalic. Right Ear: External ear normal. Left Ear: External ear normal. Nose: Nose normal. Eyes: Extraocular Movements: Extraocular movements intact. Neck: Musculoskeletal: Normal range of motion and neck supple. Cardiovascular: Rate and Rhythm: Normal rate. Pulses: Radial pulses are 2+ on the right side and 2+ on the left side. Dorsalis pedis pulses are 2+ on the right side and 2+ on the left side. Posterior tibial pulses are 2+ on the right side and 2+ on the left side. Pulmonary: Effort: Pulmonary effort is normal. No respiratory distress. Musculoskeletal: Right lower leg: No edema. Left lower leg: No edema. Comments: No midline C-spine, T-spine or L-spine tenderness no step-offs or deformities. No external signs of trauma to the right hip or right knee. Full range of motion with pain. Neurovascularly intact. Skin: General: Skin is warm and dry. Capillary Refill: Capillary refill takes less than 2 seconds. Neurological: General: No focal deficit present. Mental Status: He is alert and oriented to person, place, and time. Psychiatric: Mood and Affect: Mood normal. Behavior: Behavior normal. Laboratory & Radiographic Imaging (if done): No results found for this visit on 07/10/20. XR Femur Right 2+ Views (Standard) Final Result Severe osteoarthritis of the right hip joint with loss of the joint space, subchondral cyst formation, bony sclerosis and osteophyte formation. No fracture of the right femoral neck or intratrochanteric region. The rest of the right femur appears unremarkable. Soft tissue swelling anterior to the patella. No fracture identified involving the right knee. [employer] Workstation ID: [id number] Lumbar Spine 2-3 Views (Standard) Final Result Changes of DJD and DDD as described above. No acute fractures identified. [employer] Workstation ID: [id number] Knee Right 2 Views (Standard) Final Result Severe osteoarthritis of the right hip joint with loss of the joint space, subchondral cyst formation, bony sclerosis and osteophyte formation. No fracture of the right femoral neck or intratrochanteric region. The rest of the right femur appears unremarkable. Soft tissue swelling anterior to the patella. No fracture identified involving the right knee. [employer] Workstation ID: [id number] XR Hip Right With Pelvis 2-3 Views (Routine) Final Result Severe osteoarthritis of the right hip joint with loss of the joint space, subchondral cyst formation, bony sclerosis and osteophyte formation. No fracture of the right femoral neck or intratrochanteric region. The rest of the right femur appears unremarkable. Soft tissue swelling anterior to the patella. No fracture identified involving the right knee. [employer] Workstation ID: [id number] Procedures MDM Number of Diagnoses or Management Options Fall, initial encounter Diagnosis management comments: 60-year-old male patient presents for right hip pain after a fall. Also complaining of some chronic low back pain and right knee pain. No external signs of trauma. Full range of motion of the right hip and right knee. No midline C-spine, T-spine or L-spine tenderness. He is neurovascularly intact. Imaging of the right hip shows severe osteoarthritis. Imaging of the right knee shows soft tissue swelling of the anterior patella, no fracture. He was given oxycodone. He ambulates with a limp due to his pain, patient states he always ambulates like this and this is not new. Will be offered a walker for assistance to prevent further falling. He is aware of his test results. Given orthopedics for follow-up if needed. Strict return precautions advised he is discharged in stable condition. . Clinical Impression: 1. Fall, initial encounter ED Disposition ED Disposition Condition Comment Discharge Stable Wolf Turcios discharged to home/self care in stable condition. Follow-up Information 1. Dani Nash DO. Specialty: Orthopedic Surgery [address] [place] [address] Contact information for after-discharge care Follow-up information has not been specified. Yenni Bowen CNP 07/10/20 1152 Pt arrives via EMS for complaints of a fall. Pt states that he has chronic right hip pain. 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 Pt was ambulatory after the fall. Bed: 47 Expected date: Expected time: Means of arrival: Comments: Medic 14; fall; dr. crabtree documented in this encounter Pt removed from BiPaP, on room air O2 saturation is 97%. ED PROVIDER NOTE [facility] EMERGENCY DEPARTMENT NAME: Wolf Turcios AGE: 60 y.o. 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 60-year-old male presents to the emergency department with concerns for shortness of breath. Seems that the symptoms started over the last 24 to 48 hours. He states that he has really no chest pain less he coughs. He has shortness of breath and wheezing. Has a history of COPD and this feels like an exacerbation. He has a worsening cough with increased sputum production, no hemoptysis. He was given nitroglycerin and aspirin per medics with no relief of his symptoms. Patient did receive albuterol prehospital with minimal relief as well. Does continue to smoke although is trying to cut back. No real fevers per se although has not taken his temperature. He just felt hot. No particular swelling in his legs. He states that he was recently on steroids and antibiotics related to a pneumonia. He also states that he had COVID-19 in May. He denies any history of any particular improving or exacerbating factors other home therapies or concerns. Patient does have a prior history of polysubstance abuse it appears. Past Medical History: Diagnosis Date Asthma COPD (chronic obstructive pulmonary disease) (HCC) Emphysema of lung (HCC) Essential hypertension 01/10/2017 Hyperlipidemia Polysubstance abuse (HCC) PUD (peptic ulcer disease) Thoracic aortic aneurysm (HCC) TIA (transient ischemic attack) Tobacco Abuse Past Surgical History: Procedure Laterality Date EYE SURGERY GASTRIC ULCER PERFORATION REPAIR Family History Problem Relation Age of Onset Diabetes Mother Diabetes Father Throat cancer Sister Heart attack Maternal Grandmother Social History Socioeconomic History Marital status: Single Spouse name: Not on file Number of children: Not on file Years of education: Not on file Highest education level: Not on file Occupational History Not on file Social Needs Financial resource strain: Not on file Food insecurity Worry: Not on file Inability: Not on file Transportation needs Medical: Not on file Non-medical: Not on file Tobacco Use Smoking status: Current Every Day Smoker Packs/day: 0.25 Years: 39.00 Pack years: 9.75 Types: Cigarettes Smokeless tobacco: Never Used Tobacco comment: Trying to cut back, 8 cigs per day Substance and Sexual Activity Alcohol use: Not Currently Comment: 1 beer per month Drug use: Not Currently Types: Crack cocaine Comment: 1.5 years clean Sexual activity: Not on file Lifestyle Physical activity Days per week: Not on file Minutes per session: Not on file Stress: Not on file Relationships Social connections Talks on phone: Not on file Gets together: Not on file Attends alevism service: Not on file Active member of club or organization: Not on file Attends meetings of clubs or organizations: Not on file Relationship status: Not on file Other Topics Concern Not on file Social History Narrative Not on file Previous Medications Medication Sig albuterol (PROVENTIL) 2.5 mg /3 mL (0.083 %) nebulizer solution Take 3 mL (2.5 mg total) by nebulization every 4 (four) hours as needed for wheezing Dx: J44.0 . albuterol 90 mcg/actuation inhaler Inhale 2 (two) puffs every 4 (four) hours as needed for wheezing Reasons: chronic obstructive pulmonary disease. azithromycin (ZITHROMAX) 250 MG tablet Take 2 tabs today then 1 tablet daily until gone. . Banophen 25 mg capsule Take 25 mg by mouth daily as needed for allergies . budesonide-formoteroL (SYMBICORT) 160-4.5 mcg/actuation inhaler Inhale 2 (two) puffs 2 (two) times a day . buprenorphine-nalOXone (SUBOXONE) 8-[address] 1 tablet under the tongue every morning . cyclobenzaprine (FLEXERIL) 10 MG tablet Take 10 mg by mouth 2 (two) times a day as needed for muscle spasms . docusate sodium (COLACE) 100 MG capsule Take 100 mg by mouth 2 (two) times a day . guaiFENesin (Mucinex) 1,200 mg Ta12 Take 1,200 mg by mouth every morning . hydroCHLOROthiazide (HYDRODIURIL) 12.5 MG tablet Take 12.5 mg by mouth every morning . loratadine (CLARITIN) 10 mg tablet Take 10 mg by mouth every morning . montelukast (SINGULAIR) 10 mg tablet Take 1 (one) tablet (10 mg total) by mouth nightly . nicotine (NICODERM CQ) 21 mg/[address] 1 patch on the skin daily as needed . nicotine polacrilex (NICORETTE) 4 MG gum Apply 4 mg to the mouth or throat as needed for smoking cessation . tiotropium bromide (Spiriva Respimat) 2.5 mcg/actuation Mist Inhale 2 (two) puffs daily . Allergies Allergen Reactions Tylenol [Acetaminophen] Urinary tract infection Codeine Itching Including all derivatives - is well tolerated when taking Benadryl prophylaxis Review of Systems Constitutional: Negative for activity change. HENT: Negative for drooling. Eyes: Negative for visual disturbance. Respiratory: Negative for apnea. Endocrine: Negative for cold intolerance. Genitourinary: Negative for decreased urine volume. Musculoskeletal: Negative for joint swelling. Skin: Negative for rash. Allergic/Immunologic: Negative for immunocompromised state. Psychiatric/Behavioral: Negative for agitation. All other systems reviewed and are negative. Patient Vitals for the past 24 hrs: BP Temp Temp src Pulse Resp SpO2 07/17/20 1545 (!) 133/95 82 16 98 % 07/17/20 1355 (!) 150/97 98.7 F (37.1 C) Oral (!) 117 (!) 30 96 % Physical Exam Vitals signs and nursing note reviewed. Constitutional: General: He is not in acute distress. Appearance: He is well-developed. He is not diaphoretic. HENT: Head: Normocephalic and atraumatic. Eyes: General: No scleral icterus. Conjunctiva/sclera: Conjunctivae normal. Neck: Trachea: No tracheal deviation. Cardiovascular: Rate and Rhythm: Normal rate and regular rhythm. Heart sounds: Normal heart sounds. Pulmonary: Effort: Respiratory distress present. Breath sounds: Wheezing present. Comments: Frequent cough in the room. Abdominal: General: Bowel sounds are normal. There is no distension. Palpations: Abdomen is soft. Tenderness: There is no abdominal tenderness. Skin: General: Skin is warm. Coloration: Skin is not pale. Findings: No erythema or rash. Neurological: Mental Status: He is alert and oriented to person, place, and time. Laboratory & Radiographic Imaging (if done): Results for orders placed or performed during the hospital encounter of 07/17/20 BMP Result Value Ref Range Sodium 139 135 - 145 mmol/L Potassium 3.8 3.5 - 5.1 mmol/L Chloride 98 98 - 108 mmol/L Bicarbonate 31 21 - 32 mmol/L Anion Gap 14 10 - 20 mmol/L Glucose 121 (H) 65 - 99 mg/dL BUN 11 8 - 25 mg/dL Creatinine 0.72 0.50 - 1.30 mg/dL eGFR 101 >=60 mL/min/1.73 m2 BUN/Creatinine Ratio 15.3 10.0 - 20.0 Calcium 9.3 8.4 - 10.2 mg/dL Troponin x 2 (Now and Repeat in 3 hours) Result Value Ref Range Troponin T 11 <=22 ng/L Troponin T Interpretation Normal Gold Top Result Value Ref Range Extra Tube Hold for add-ons. Light Blue Top Result Value Ref Range Extra Tube Hold for add-ons. Munoz Top Result Value Ref Range Extra Tube Hold for add-ons. Blood Gas, Venous with Full Panel Result Value Ref Range pH, Venous 7.31 (L) 7.32 - 7.42 pCO2, Edison 63.3 (H) 41.0 - 51.0 mm Hg pO2, Edison 50 (H) 25 - 40 mm Hg HCO3, Edison 30.8 (H) 24.0 - 28.0 mmol/L Base Excess, Edison 2.8 (H) -2.0 - 2.0 O2 Sat, Edison 82.1 (H) 40.0 - 70.0 % Hemoglobin, Blood Gas 15.8 13.5 - 17.5 g/dL Hematocrit, Calculated 48.3 41.0 - 53.0 % O2 Hb 79.4 No established reference range % Carboxyhemoglobin 3.0 (H) <=1.5 % of total Hb Methemoglobin 0.3 0.0 - 2.0 % Sodium 141 135 - 145 mmol/L Potassium 3.7 3.5 - 5.1 mmol/L Ionized Calcium 4.7 4.5 - 5.3 mg/dL Glucose 117 (H) 65 - 99 mg/dL Lactic Acid 3.0 (H) 0.6 - 2.0 mmol/L FIO2 21 %/L Oxygen Delivery Device Bipap Other 23/01 CBC Auto Differential Result Value Ref Range WBC 12.31 (H) 4.50 - 11.00 K/mcL RBC 4.90 4.50 - 5.90 M/mcL Hemoglobin 15.4 13.5 - 17.5 g/dL Hematocrit 47.6 41.0 - 53.0 % MCV 97.1 80.0 - 100.0 fL MCH 31.4 26.0 - 34.0 pg MCHC 32.4 31.0 - 37.0 g/dL Platelets 291 150 - 400 K/mcL RDW - CV 12.9 11.6 - 14.8 % MPV 9.9 9.4 - 12.4 fL Neutrophils 70.7 % Lymphocytes 17.0 % Monocytes 7.9 % Eosinophils 3.6 % Basophils 0.5 % IG Percent 0.30 % Neutrophils Abs 8.71 (H) 1.70 - 7.00 K/mcL Lymphocytes Abs 2.09 0.90 - 4.00 K/mcL Monocytes Abs 0.97 (H) 0.30 - 0.90 K/mcL Eosinophils Abs 0.44 0.00 - 0.50 K/mcL Basophils Abs 0.06 0.00 - 0.30 K/mcL IG Absolute 0.04 0.00 - 0.30 K/mcL Nucleated RBC 0.0 % Nucleated RBC Abs 0.00 0.00 - 0.00 K/mcL XR Chest 1 View Final Result Near complete resolution of the right lower lung infiltrate. No new abnormality identified. [employer] Workstation ID: [id number] Procedures MDM Number of Diagnoses or Management Options COPD exacerbation (HCC) Dyspnea, unspecified type Leukocytosis, unspecified type Tobacco Abuse Diagnosis management comments: 60-year-old male presenting to the emergency department with concerns for shortness of breath. Tachypneic on arrival and was placed on BiPAP. He was given DuoNeb therapies in addition to steroids. Chest x-ray actually shows resolution of the right lower lung infiltrate previously noted. His labs reveal mild leukocytosis, normal renal function. Of note, the patient had a Covid swab that was positive in April of last year he states from a halfway. He at this point seems to be doing better on BiPAP, hopeful to liberate here soon in the emergency department. We will add azithromycin for COPD exacerbation. Twelve-lead EKG interpreted by myself as a sinus tachycardia with a rate of 110. Normal axis. No ST segment changes, T waves inverted in aVL although concordant with the polarity of aVL. QTc, QRS, DC normal. Initial blood gas with pH of 7.31, CO2 63. This was obtained just prior to BiPAP. After steroids, antibiotics and nebs he is feeling better. We will recheck a blood gas here in the next 20 to 30 minutes. If it is looking better will likely liberate from BiPAP. In the interim will likely need a least night stay hospital for monitoring and treatment of the COPD exacerbation. Did have a Covid swab in April at a halfway which he states was positive. For this reason did not retest him Disposition: Admission. ED Course as of Jul 17 1649 Tue Jul 17, [id number] Attempted to call [facility] - went to . Left checkout [DS] ED Course User Index [DS] Ophelia Rasheed DO . Clinical Impression: 1. COPD exacerbation (HCC) 2. Dyspnea, unspecified type 3. Tobacco Abuse 4. Leukocytosis, unspecified type ED Disposition ED Disposition Condition Comment Hospitalize Phone call required?: No Follow-up Information Follow-up information has not been specified. Contact information for after-discharge care Follow-up information has not been specified. Ophelia Rasheed DO 07/17/201650 Pt placed on biPaP at this time. Pt arrives with SOB, stating that it began to be this bad this morning, but been SOB since last night. Pt speaking in 3-4 word sentences, shows increased work f breathing. Pt took 2 breathing treatments at home, was given one by EMS. Also given 1 nitroglycerin tab as well as 324 of ASA. Bed: 24 Expected date: Expected time: Means of arrival: Comments: M14 / CHAI / Terrance documented in this encounter Dr. Arredondo at bedside. Pt resting on cot, NAD noted. Pt voices no needs. Updated on continued plan of care. Call light in reach and bed in lowest position with wheels locked. Will continue to monitor. RT at bedside. Given VBG. Contacted RT for breathing treatment. PCP - Karma Mark, LAM Chief Complaint Patient presents with Leg Swelling HPI 60-year-old male with history of asthma, COPD, hypertension, hyperlipidemia, polysubstance abuse, PUD, thoracic aortic aneurysm, TIA, and cigarette smoking presents with chief complaint of leg swelling. He states he started noticing swelling to his right leg a couple of days ago which has been constant since then. He states he occasionally has some cramping pain to his right calf and behind his right knee as well. He denies radiation of this. He states he fell about a week ago onto his right hip and is having some mild aching pain there as well. He has been short of breath over the past week as well. He reports being hospitalized from 07/17 until 07/19 for COPD exacerbation and sepsis due to aspiration pneumonia. He has been taking prednisone and azithromycin. He received Unasyn while in the hospital. He has been still having a dry cough and some shortness of breath recently. He reports a mild pressure to the right side of his chest as well. He denies any pleuritic pain. He denies history of DVT or PE. Review of Systems Constitutional: No fevers Skin: No rash Eyes: No scleral icterus ENMT: No drooling Genitourinary: No hematuria Endocrine: No polydipsia Neurologic: No new face asymmetry Psychiatric: No hallucinations Hematologic: No petechiae or purpura Allergic/Immunologic: No urticaria Past Medical History Past Medical History: Diagnosis Date Asthma COPD (chronic obstructive pulmonary disease) (HCC) Emphysema of lung (HCC) Essential hypertension 01/10/2017 Hyperlipidemia Polysubstance abuse (HCC) PUD (peptic ulcer disease) Thoracic aortic aneurysm (HCC) TIA (transient ischemic attack) Tobacco Abuse Past Surgical History Past Surgical History: Procedure Laterality Date EYE SURGERY GASTRIC ULCER PERFORATION REPAIR Family History Family History Problem Relation Age of Onset Diabetes Mother Diabetes Father Throat cancer Sister Heart attack Maternal Grandmother Social History Social History Socioeconomic History Marital status: Single Spouse name: Not on file Number of children: Not on file Years of education: Not on file Highest education level: Not on file Occupational History Not on file Social Needs Financial resource strain: Not on file Food insecurity Worry: Not on file Inability: Not on file Transportation needs Medical: Not on file Non-medical: Not on file Tobacco Use Smoking status: Current Every Day Smoker Packs/day: 0.25 Years: 39.00 Pack years: 9.75 Types: Cigarettes Smokeless tobacco: Never Used Tobacco comment: Trying to cut back, 8 cigs per day Substance and Sexual Activity Alcohol use: Not Currently Comment: 1 beer per month Drug use: Not Currently Types: Crack cocaine Comment: 1.5 years clean Sexual activity: Not on file Lifestyle Physical activity Days per week: Not on file Minutes per session: Not on file Stress: Not on file Relationships Social connections Talks on phone: Not on file Gets together: Not on file Attends alevism service: Not on file Active member of club or organization: Not on file Attends meetings of clubs or organizations: Not on file Relationship status: Not on file Other Topics Concern Not on file Social History Narrative Not on file Allergies Allergies Allergen Reactions Tylenol [Acetaminophen] Urinary tract infection Codeine Itching Including all derivatives - is well tolerated when taking Benadryl prophylaxis Medications Wolf Turcios Home Medication Instructions Prior to Surgery NUNO:[id number] Printed on:07/25/20 [facility] Medication Information Take last dose on Take the morning of surgery Comment(s) albuterol (PROVENTIL) 2.5 mg /3 mL (0.083 %) nebulizer solution Take 3 mL (2.5 mg total) by nebulization every 4 (four) hours as needed for wheezing Dx: J44.0 . albuterol 90 mcg/actuation inhaler Inhale 2 (two) puffs every 4 (four) hours as needed for wheezing Reasons: chronic obstructive pulmonary disease. albuterol 90 mcg/actuation inhaler Inhale 2 puffs every 4 (four) hours as needed for wheezing . budesonide-formoteroL (SYMBICORT) 160-4.5 mcg/actuation inhaler Inhale 2 (two) puffs 2 (two) times a day . buprenorphine-nalOXone (Suboxone) 8-[address] 1 Film under the tongue daily . cyclobenzaprine (FLEXERIL) 10 MG tablet Take 10 mg by mouth 2 (two) times a day as needed for muscle spasms . guaiFENesin (Mucinex) 1,200 mg Ta12 Take 1,200 mg by mouth every morning . hydroCHLOROthiazide (HYDRODIURIL) 12.5 MG tablet Take 12.5 mg by mouth every morning . ibuprofen (ADVIL,MOTRIN) 800 MG tablet Take 1 (one) tablet (800 mg total) by mouth every 8 (eight) hours as needed for pain . montelukast (SINGULAIR) 10 mg tablet Take 1 (one) tablet (10 mg total) by mouth nightly . nicotine (NICODERM CQ) 21 mg/[address] 1 patch on the skin daily as needed . nicotine polacrilex (NICORETTE) 4 MG gum Apply 4 mg to the mouth or throat as needed for smoking cessation . nystatin (MYCOSTATIN) 100,000 unit/mL suspension predniSONE (DELTASONE) 20 MG tablet Take 4 tabs PO daily x 3 days, then 3 tabs PO daily x 3 days, then 2 tabs PO daily x 3 days, then 1 tab PO daily x 3 days . tamsulosin (FLOMAX) 0.4 mg capsule Take 0.4 mg by mouth daily . tiotropium bromide (Spiriva Respimat) 2.5 mcg/actuation Mist Inhale 2 (two) puffs daily . tiotropium bromide (Spiriva Respimat) 2.5 mcg/actuation Mist Inhale 5 mcg daily . Physical Exam Initial Vital Signs BP 127/66 Pulse (!) 105 Temp 97.6 F (36.4 C) (Oral) Resp (!) 24 SpO2 95% Vital Signs During ED Visit (as charted by nursing) Patient Vitals for the past 24 hrs: BP Temp Temp src Pulse Resp SpO2 07/25/20 1015 127/66 (!) 105 95 % 07/25/20 0845 (!) 113 98 % 07/25/20 0830 97 % 07/25/20 0811 (!) 161/100 (!) 120 96 % 07/25/20 0805 97.6 F (36.4 C) Oral 07/25/20 0800 125/87 (!) 114 (!) 24 97 % Physical Exam Vitals signs and nursing note reviewed. Constitutional: Appearance: He is not diaphoretic. Comments: I evaluated this patient while wearing a surgical mask. Patient is also wearing a surgical mask. HENT: Head: Normocephalic and atraumatic. Right Ear: External ear normal. Left Ear: External ear normal. Eyes: Extraocular Movements: Extraocular movements intact. Pupils: Pupils are equal, round, and reactive to light. Neck: Musculoskeletal: Normal range of motion. Cardiovascular: Rate and Rhythm: Regular rhythm. Tachycardia present. Pulses: Normal pulses. Heart sounds: Normal heart sounds. No murmur. Pulmonary: Effort: Tachypnea and accessory muscle usage present. Breath sounds: Decreased air movement present. Wheezing present. Comments: Patient is speaking in shortened sentences with accessory muscle usage. Scattered expiratory wheezes. Abdominal: General: Abdomen is flat. Bowel sounds are normal. Palpations: Abdomen is soft. Tenderness: There is no abdominal tenderness. Musculoskeletal: Normal range of motion. Comments: 1+ pitting edema bilaterally slightly more pronounced in the right lower extremity. Compartments are soft and compressible. No erythema or warmth. Peripheral pulses and sensations intact. Mild tenderness to the right greater trochanter. Full range of motion to the right hip. Lymphadenopathy: Cervical: No cervical adenopathy. Skin: General: Skin is warm. Capillary Refill: Capillary refill takes less than 2 seconds. Neurological: General: No focal deficit present. Mental Status: He is alert and oriented to person, place, and time. Psychiatric: Mood and Affect: Mood normal. Behavior: Behavior normal. IMPRESSION/ ED COURSE 60-year-old male recently hospitalized for a COPD exacerbation and aspiration pneumonia presented for evaluation of right leg pain and swelling along with shortness of breath. On arrival he was tachypneic and speaking in shortened sentences but he was oxygenating well on room air. He was tachycardic. He showed decreased air movement on lung exam with scattered expiratory wheezes. 1+ pitting edema to the bilateral lower extremities more pronounced on the right. Venous Doppler of the lower extremities showed no acute thrombosis or obstruction. X-ray of the right hip showed osteoarthritis without acute fracture or dislocation. CT pulmonary artery study showed no evidence of pulmonary embolism or acute pulmonary abnormality and showed improvement to his recently diagnosed pneumonia but did show severe emphysema. Troponin and BNP are unremarkable. Patient was given a DuoNeb breathing treatment here along with levalbuterol and a dose of prednisone. Presentation appears consistent with COPD exacerbation. He has been persistently tachypneic here with increased effort of breathing. He was briefly placed on nasal cannula oxygen but was able to be weaned off of this. He was admitted for further evaluation and management. Stable at admission. Discussed and seen with Dr. Mayen. Testing for COVID-19 was performed prior to admission due to the current pandemic. . FINAL DIAGNOSIS 1. Shortness of breath 2. Acute exacerbation of chronic obstructive pulmonary disease (COPD) (HCC) 3. Bilateral edema of lower extremity Labs Reviewed BASIC METABOLIC PANEL - Abnormal; Notable for the following components: Result Value Glucose 230 (*) All other components within normal limits Narrative: The eGFR should be used for monitoring renal function only and not for medication dosing. BLOOD GAS, VBG WITH FULL PANEL - Abnormal; Notable for the following components: pH, Venous 7.44 (*) pCO2, Edison 39.3 (*) pO2, Edison 82 (*) Base Excess, Edison 2.8 (*) O2 Sat, Edison 96.5 (*) Carboxyhemoglobin 2.2 (*) Glucose 190 (*) Lactic Acid 3.5 (*) All other components within normal limits CBC WITH AUTO DIFFERENTIAL - Abnormal; Notable for the following components: RBC 4.21 (*) Hemoglobin 13.2 (*) MPV 9.3 (*) Neutrophils Abs 8.12 (*) Lymphocytes Abs 0.68 (*) All other components within normal limits NT PRO BNP - Normal Narrative: Pride Study Cut-offs Rule In: < /= 50 Years >450 pg/mL 51 Years - 75 Years >900 pg/mL 76 Years - 99 Years >1800 pg/mL Rule Out: All patients <300 pg/mL COVID-19/INFLUENZA A,B MOLECULAR CBC AND DIFFERENTIAL Narrative: The following orders were created for panel order CBC w/ Diff. Procedure Abnormality Status --------- ------ CBC Auto Differential[[id number]] Abnormal Final result Please view results for these tests on the individual orders. TROPONIN REFLEX LACTIC ACID, PLASMA Radiographic Imaging (if any) During ED Visit Ultrasound Duplex Venous Legs BILATERAL XR Hip Right With Pelvis 2-3 Views (Routine) Final Result Moderate to severe right hip osteoarthritis. No acute fracture or dislocation. Workstation ID: [id number] XR Chest 1 View Final Result Mild right basilar atelectasis. Otherwise no acute focal process. Workstation ID: [id number] CT Pulmonary Arteries Final Result 1. No evidence of pulmonary embolism or acute pulmonary abnormality. 2. Decreased consolidation in the superior segment of the right lower lobe, compatible with resolving pneumonia. Right middle lobe opacities have resolved. 3. Severe emphysema. Workstation ID: [id number] Medications Ordered/Given During ED Visit Medications sodium chloride (PF) (NS) flush 5 mL (has no administration in time range) And sodium chloride 0.9% (NS) (has no administration in time range) sodium chloride (PF) (NS) 0.9 % contrast line flush 10 mL (has no administration in time range) And sodium chloride (PF) (NS) 0.9 % contrast line flush 80 mL (80 mL Intravenous Given 07/25/20 0901) And iopamidoL (ISOVUE-370) 76 % injection 75 mL (75 mL Intravenous Contrast Administered 07/25/20 0900) levalbuterol (XOPENEX) nebulizer solution 1.25 mg (has no administration in time range) ipratropium-albuteroL (DUO-NEB) 0.5-2.5 mg/3 ml nebulizer solution 3 mL (3 mL Inhalation Given 07/25/20 0830) predniSONE (DELTASONE) tablet 60 mg (60 mg Oral Given 07/25/20 0827) Procedures Phil Carbajal PA-C 07/25/20 1037 Pt arrives via EMS for c/o R leg swelling. Pt reports that he started a new antibiotic 3 days ago and now has R leg swelling. Pt reports he was released from hospital 2 days ago. Pt started taking the antibiotics for pneumonia. Pt also reports pain in leg, states he is supposed to have R hip replacement also but has been unable to get this done. Pt reports swelling from his foot up to his hip. Denies hx of blood clots. Pt arrives alert, oriented, answers questions appropriately. Pt tachypneic on arrival, O2 sat 96% on RA. Bed: 60 Expected date: 07/25/20 Expected time: 7:42 AM Means of arrival: Ambulance Comments: M3 Edema elkin documented in this encounter Pt discharged at this time. Appears in no acute signs of distress. Ambulated out of department. [employer] called at this time. ED PROVIDER NOTE [facility] EMERGENCY DEPARTMENT NAME: Wolf Turcios AGE: 60 y.o. 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 Patient is alert and oriented 60-year-old male with a past medical history of COPD, hypertension polysubstance abuse TIAs that arrives the emergency department for evaluation of a syncopal episode. Patient reports he was actually just discharged from the hospital this afternoon was on his way to the cab when he reached for his cane next to the wheelchair turned to get in the cab and felt like the room was spinning and my head was in a balloon states he is unsure if he hit his head at all, he denies any headache now does not feel like the room is spinning but feels still slightly dizzy. States he has not had this before. He denies any chest pain or shortness of breath worse than his normal COPD during this. Denies any alcohol use, has been on Suboxone for approximately a month now did have his dose this morning. He is somewhat tremulous which she states has been present for over a month. Denies any history of seizures. Past Medical History: Diagnosis Date Asthma COPD (chronic obstructive pulmonary disease) (HCC) Emphysema of lung (HCC) Essential hypertension 01/10/2017 Hyperlipidemia Polysubstance abuse (HCC) PUD (peptic ulcer disease) Thoracic aortic aneurysm (HCC) TIA (transient ischemic attack) Tobacco Abuse Past Surgical History: Procedure Laterality Date EYE SURGERY GASTRIC ULCER PERFORATION REPAIR Family History Problem Relation Age of Onset Diabetes Mother Diabetes Father Throat cancer Sister Heart attack Maternal Grandmother Social History Socioeconomic History Marital status: Single Spouse name: Not on file Number of children: Not on file Years of education: Not on file Highest education level: Not on file Occupational History Not on file Social Needs Financial resource strain: Not on file Food insecurity Worry: Not on file Inability: Not on file Transportation needs Medical: Not on file Non-medical: Not on file Tobacco Use Smoking status: Current Every Day Smoker Packs/day: 0.25 Years: 39.00 Pack years: 9.75 Types: Cigarettes Smokeless tobacco: Never Used Tobacco comment: Trying to cut back, 8 cigs per day Substance and Sexual Activity Alcohol use: Not Currently Comment: 1 beer per month Drug use: Not Currently Types: Crack cocaine Comment: 1.5 years clean Sexual activity: Not on file Lifestyle Physical activity Days per week: Not on file Minutes per session: Not on file Stress: Not on file Relationships Social connections Talks on phone: Not on file Gets together: Not on file Attends alevism service: Not on file Active member of club or organization: Not on file Attends meetings of clubs or organizations: Not on file Relationship status: Not on file Other Topics Concern Not on file Social History Narrative Not on file Previous Medications Medication Sig [DISCONTINUED] amoxicillin-clavulanate (AUGMENTIN) 875-125 mg per tablet Take 1 (one) tablet by mouth 2 (two) times a day for 5 days . albuterol (PROVENTIL) 2.5 mg /3 mL (0.083 %) nebulizer solution Take 3 mL (2.5 mg total) by nebulization every 4 (four) hours as needed for wheezing Dx: J44.0 . albuterol 90 mcg/actuation inhaler Inhale 2 puffs every 4 (four) hours as needed for wheezing . aspirin 81 MG EC tablet Take 81 mg by mouth daily . azithromycin (ZITHROMAX) 250 MG tablet Take one tablet by mouth every Thursday, Thursday and Thursday morning. . budesonide-formoteroL (SYMBICORT) 160-4.5 mcg/actuation inhaler Inhale 2 puffs 2 (two) times a day . buprenorphine-nalOXone (Suboxone) 8-[address] 1 Film under the tongue daily . cyclobenzaprine (FLEXERIL) 10 MG tablet Take 10 mg by mouth 2 (two) times a day as needed for muscle spasms . guaiFENesin (Mucinex) 1,200 mg Ta12 Take 1,200 mg by mouth 2 (two) times a day as needed . hydroCHLOROthiazide (HYDRODIURIL) 12.5 MG tablet Take 12.5 mg by mouth every morning . ibuprofen (ADVIL,MOTRIN) 800 MG tablet Take 1 (one) tablet (800 mg total) by mouth every 8 (eight) hours as needed for pain . montelukast (SINGULAIR) 10 mg tablet Take 1 (one) tablet (10 mg total) by mouth nightly . nicotine (NICODERM CQ) 21 mg/[address] 1 patch on the skin daily as needed . nicotine polacrilex (NICORETTE) 4 MG gum Apply 4 mg to the mouth or throat as needed for smoking cessation . nystatin (MYCOSTATIN) 100,000 unit/mL suspension Take 500,000 Units by mouth 4 (four) times a day . predniSONE (DELTASONE) 20 MG tablet Take 4 tabs PO daily x 3 days, then 3 tabs PO daily x 3 days, then 2 tabs PO daily x 3 days, then 1 tab PO daily x 3 days . tamsulosin (FLOMAX) 0.4 mg capsule Take 0.4 mg by mouth daily . tiotropium bromide (Spiriva Respimat) 2.5 mcg/actuation Mist Inhale 5 mcg daily . Allergies Allergen Reactions Tylenol [Acetaminophen] Urinary tract infection Codeine Itching Including all derivatives - is well tolerated when taking Benadryl prophylaxis Review of Systems Constitutional: Negative for fever. HENT: Negative for congestion. Eyes: Negative for photophobia. Respiratory: Negative for shortness of breath. Cardiovascular: Negative for chest pain. Gastrointestinal: Negative for abdominal pain. Endocrine: Negative for cold intolerance. Genitourinary: Negative for dysuria. Musculoskeletal: Negative for back pain. Neurological: Positive for dizziness. Psychiatric/Behavioral: Negative for confusion. Patient Vitals for the past 24 hrs: BP Temp Pulse Resp SpO2 07/26/20 1316 (!) 171/108 99 F (37.2 C) 98 18 97 % Physical Exam Laboratory & Radiographic Imaging (if done): Results for orders placed or performed during the hospital encounter of 07/26/20 BMP Result Value Ref Range Sodium 139 135 - 145 mmol/L Potassium 4.3 3.5 - 5.1 mmol/L Chloride 97 (L) 98 - 108 mmol/L Bicarbonate 29 21 - 32 mmol/L Anion Gap 17 10 - 20 mmol/L Glucose 156 (H) 65 - 99 mg/dL BUN 19 8 - 25 mg/dL Creatinine 0.91 0.50 - 1.30 mg/dL eGFR 91 >=60 mL/min/1.73 m2 BUN/Creatinine Ratio 20.9 (H) 10.0 - 20.0 Calcium 8.9 8.4 - 10.2 mg/dL Troponin Result Value Ref Range Troponin T 11 <=22 ng/L Troponin T Interpretation Normal ECG 12 Lead Result Value Ref Range Ventricular Rate 95 BPM Atrial Rate 95 BPM P-R Interval 128 ms QRS Duration 94 ms Q-T Interval 334 ms QTC Calculation (Bezet) 419 ms P [place] 77 degrees R [place] 68 degrees T [place] 73 degrees CBC Auto Differential Result Value Ref Range WBC 11.09 (H) 4.50 - 11.00 K/mcL RBC 4.58 4.50 - 5.90 M/mcL Hemoglobin 14.4 13.5 - 17.5 g/dL Hematocrit 44.6 41.0 - 53.0 % MCV 97.4 80.0 - 100.0 fL MCH 31.4 26.0 - 34.0 pg MCHC 32.3 31.0 - 37.0 g/dL Platelets 307 150 - 400 K/mcL RDW - CV 13.7 11.6 - 14.8 % MPV 9.2 (L) 9.4 - 12.4 fL Neutrophils 82.3 % Lymphocytes 8.5 % Monocytes 4.5 % Eosinophils 1.0 % Basophils 0.5 % IG Percent 3.20 % Neutrophils Abs 9.14 (H) 1.70 - 7.00 K/mcL Lymphocytes Abs 0.94 0.90 - 4.00 K/mcL Monocytes Abs 0.50 0.30 - 0.90 K/mcL Eosinophils Abs 0.11 0.00 - 0.50 K/mcL Basophils Abs 0.05 0.00 - 0.30 K/mcL IG Absolute 0.35 (H) 0.00 - 0.30 K/mcL Nucleated RBC 0.0 % Nucleated RBC Abs 0.00 0.00 - 0.00 K/mcL CT Head Or Brain Without Contrast Final Result No acute intracranial abnormality. Workstation ID: [id number] Procedures MDM Patient is alert and oriented 60-year-old male that arrives to the emergency department for evaluation. We did obtain a CT of patient's brain, negative for any acute abnormalities, he is neurologically intact without any deficits. Troponin and lab work is reassuring as well. He states he feels fine since the occurrence, this is likely related to orthostasis and some deconditioning given his recent hospitalization. Patient has been ambulatory without issue in the hospital room. He will be discharged follow-up with his PCP we did discuss return precautions. . Clinical Impression: 1. Syncope, unspecified syncope type ED Disposition ED Disposition Condition Comment Discharge Stable Wolf Turcios discharged to home/self care in stable condition. Follow-up Information 1. Karma Mark CNP. Specialty: Nurse Practitioner Uli Oquendo [facility] [id number] Contact information for after-discharge care Follow-up information has not been specified. Alcides Call CNP 07/26/20 1500 Pt recently discharged from Obs earlier. Pt states he stood up too fast, passed out and fell. Hit his head on a pole. Fall was witnessed. Denies use of thinners. Denies LOC. Pt with hx of COPD. Good sensation and motor function in all extremities. documented in this encounter Rounding Assessment: Activity - Resting in bed. CardioRespir - Spontaneous, equal chest rise. Respirs unlabored. Skin - Warm and Dry. Needs/Concerns - Updated on POC. Denies any further needs at this time. Safety - Bed in lowest position. Call light within reach. Wheels locked. Side rails raised. Continuous monitoring in place. Rounding Assessment: Activity - Resting in bed. CardioRespir - Spontaneous, equal chest rise. Respirs unlabored. Skin - Warm and Dry. Needs/Concerns - Updated on POC. Denies any further needs at this time. Safety - Bed in lowest position. Call light within reach. Wheels locked. Side rails raised. Continuous monitoring in place. Rounding Assessment: Activity - Resting in bed. CardioRespir - Spontaneous, equal chest rise. Respirs unlabored. Skin - Warm and Dry. Needs/Concerns - Updated on POC. Denies any further needs at this time. Safety - Bed in lowest position. Call light within reach. Wheels locked. Side rails raised. Continuous monitoring in place. 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 He states he has had similar symptoms in the past from pneumonia that he states he has had for the past 5 months. He denies any other provocative factors of his symptoms. He is not used any medications for his symptoms. On review of systems, he denies fevers or chills, headache, sore throat, neck pain or stiffness, chest pressure, abdominal pain or back pain, nausea, vomiting, diarrhea, joint pains, muscle aches, lower extremity edema or rashes or lesions. Review of Systems Constitutional: No recent unexplained weight loss Skin: No rash Eyes: No scleral icterus ENMT: No voice changes Genitourinary: no obstructive symptoms Endocrine: no polyuria Neurologic: no speech difficulties Psychiatric: No Behavior Problems Hematologic/Lymphatic: No abnormal bruising Allergic/Immunologic: no urticaria Other pertinent positives and negatives in HPI Previous Records Reviewed Past Medical History Past Medical History: Diagnosis Date Asthma COPD (chronic obstructive pulmonary disease) (HCC) Emphysema of lung (HCC) Essential hypertension 01/10/2017 Hyperlipidemia Polysubstance abuse (HCC) PUD (peptic ulcer disease) Thoracic aortic aneurysm (HCC) TIA (transient ischemic attack) Tobacco Abuse Past Surgical History Past Surgical History: Procedure Laterality Date EYE SURGERY GASTRIC ULCER PERFORATION REPAIR Family History Family History Problem Relation Age of Onset Diabetes Mother Diabetes Father Throat cancer Sister Heart attack Maternal Grandmother Social History Social History Socioeconomic History Marital status: Single Spouse name: Not on file Number of children: Not on file Years of education: Not on file Highest education level: Not on file Occupational History Not on file Social Needs Financial resource strain: Not on file Food insecurity Worry: Not on file Inability: Not on file Transportation needs Medical: Not on file Non-medical: Not on file Tobacco Use Smoking status: Former Smoker Packs/day: 0.25 Years: 39.00 Pack years: 9.75 Types: Cigarettes Smokeless tobacco: Never Used Tobacco comment: Trying to cut back, 8 cigs per day Substance and Sexual Activity Alcohol use: Not Currently Comment: 1 beer per month Drug use: Not Currently Types: Crack cocaine Comment: 1.5 years clean Sexual activity: Not on file Lifestyle Physical activity Days per week: Not on file Minutes per session: Not on file Stress: Not on file Relationships Social connections Talks on phone: Not on file Gets together: Not on file Attends alevism service: Not on file Active member of club or organization: Not on file Attends meetings of clubs or organizations: Not on file Relationship status: Not on file Other Topics Concern Not on file Social History Narrative Not on file Allergies Allergies Allergen Reactions Tylenol [Acetaminophen] Urinary tract infection Codeine Itching Including all derivatives - is well tolerated when taking Benadryl prophylaxis Medications Wolf Turcios Home Medication Instructions Prior to Surgery NUNO:[id number] Printed on:08/08/20 6867 Medication Information Take last dose on Take the morning of surgery Comment(s) albuterol (PROVENTIL) 2.5 mg /3 mL (0.083 %) nebulizer solution Take 3 mL (2.5 mg total) by nebulization every 4 (four) hours as needed for wheezing Dx: J44.0 . albuterol 90 mcg/actuation inhaler Inhale 2 puffs every 4 (four) hours as needed for wheezing . aspirin 81 MG EC tablet Take 81 mg by mouth daily . azithromycin (ZITHROMAX) 250 MG tablet Take one tablet by mouth every Thursday, Thursday and Thursday morning. . budesonide-formoteroL (SYMBICORT) 160-4.5 mcg/actuation inhaler Inhale 2 puffs 2 (two) times a day . buprenorphine-nalOXone (Suboxone) 8-[address] 1 Film under the tongue daily . cyclobenzaprine (FLEXERIL) 10 MG tablet Take 10 mg by mouth 2 (two) times a day as needed for muscle spasms . guaiFENesin (Mucinex) 1,200 mg Ta12 Take 1,200 mg by mouth 2 (two) times a day as needed . hydroCHLOROthiazide (HYDRODIURIL) 12.5 MG tablet Take 12.5 mg by mouth every morning . ibuprofen (ADVIL,MOTRIN) 800 MG tablet Take 1 (one) tablet (800 mg total) by mouth every 8 (eight) hours as needed for pain . montelukast (SINGULAIR) 10 mg tablet Take 1 (one) tablet (10 mg total) by mouth nightly . nicotine (NICODERM CQ) 21 mg/[address] 1 patch on the skin daily as needed . nicotine polacrilex (NICORETTE) 4 MG gum Apply 4 mg to the mouth or throat as needed for smoking cessation . nystatin (MYCOSTATIN) 100,000 unit/mL suspension Take 500,000 Units by mouth 4 (four) times a day . predniSONE (DELTASONE) 20 MG tablet Take 4 tabs PO daily x 3 days, then 3 tabs PO daily x 3 days, then 2 tabs PO daily x 3 days, then 1 tab PO daily x 3 days . tamsulosin (FLOMAX) 0.4 mg capsule Take 0.4 mg by mouth daily . tiotropium bromide (Spiriva Respimat) 2.5 mcg/actuation Mist Inhale 5 mcg daily . Physical Exam Initial Vital Signs BP 134/86 Pulse (!) 120 Temp (!) 100.8 F (38.2 C) (Oral) Resp (!) 20 Ht 6' 2 Wt 68 kg (150 lb) SpO2 91% BMI 19.26 kg/m Vital Signs During ED Visit (as charted by nursing) Patient Vitals for the past 24 hrs: BP Temp Temp src Pulse Resp SpO2 Height Weight 08/08/20 2315 134/86 (!) 120 (!) 20 91 % 08/08/20 2243 (!) 20 08/08/20 2242 (!) 141/92 (!) 100.8 F (38.2 C) Oral (!) 133 16 95 % 6' 2 68 kg (150 lb) Physical Exam Vitals signs and nursing note reviewed. Constitutional: General: He is not in acute distress. Appearance: Normal appearance. He is well-developed. He is not ill-appearing, toxic-appearing or diaphoretic. Comments: Patient sitting comfortably, answer all questions appropriately and in full sentences. No signs of intoxication or confusion. HENT: Head: Normocephalic. Eyes: General: No scleral icterus. Right eye: No discharge. Left eye: No discharge. Extraocular Movements: Extraocular movements intact. Conjunctiva/sclera: Conjunctivae normal. Neck: Musculoskeletal: Normal range of motion and neck supple. Vascular: No JVD. Trachea: No tracheal deviation. Cardiovascular: Rate and Rhythm: Regular rhythm. Tachycardia present. Heart sounds: Normal heart sounds. Pulmonary: Effort: Pulmonary effort is normal. No respiratory distress. Breath sounds: Normal breath sounds. No stridor. No wheezing, rhonchi or rales. Abdominal: General: There is no distension. Palpations: Abdomen is soft. Tenderness: There is no abdominal tenderness. There is no guarding. Musculoskeletal: Normal range of motion. Right lower leg: No edema. Left lower leg: No edema. Skin: General: Skin is warm and dry. Neurological: Mental Status: He is alert and oriented to person, place, and time. Psychiatric: Mood and Affect: Mood normal. Behavior: Behavior normal. Thought Content: Thought content normal. Judgment: Judgment normal. IMPRESSION/ ED COURSE 60-year-old male with past history of hypertension, hyperlipidemia, thoracic aortic aneurysm, TIA, COPD, asthma, polysubstance abuse presents to the ED complaining of chest pain, shortness of breath and cough for the past 2 or 3 days. Recent hospitalization within the past month for COPD exacerbation. He is febrile at 100.8 degrees, tachycardic at 133 bpm and hypertensive at 141/92. Patient is tachypneic with an SPO2 of 95% on his baseline 3 L via nasal cannula. EKG was interpreted by the attending physician. Provided patient with IV fluids, Rocephin and azithromycin have a suspicion of a respiratory source of his sepsis. Lab work is remarkable for leukocytosis of 16.4, no anemia or electrolyte abnormalities. Troponin is 13. Lactate is 1.4. Covid/influenza not detected. Blood cultures pending. Chest x-ray pending. Please see Dr. Ewing's note for additional information, test results, treatment plan and ultimate disposition. . FINAL DIAGNOSIS No diagnosis found. Labs Reviewed CHEM 7 - Abnormal; Notable for the following components: Result Value Sodium 134 (*) Chloride 95 (*) Glucose 131 (*) All other components within normal limits Narrative: The eGFR should be used for monitoring renal function only and not for medication dosing. CBC WITH AUTO DIFFERENTIAL - Abnormal; Notable for the following components: WBC 16.40 (*) Neutrophils Abs 14.10 (*) Lymphocytes Abs 0.82 (*) Monocytes Abs 1.23 (*) All other components within normal limits COVID-19/INFLUENZA A,B MOLECULAR - Normal Narrative: This test was performed under the FDA's Emergency Use Authorization (EUA). Testing was performed using the Dimitris Panda SARS-CoV-2 RT-PCR & Influenza A/B Nucleic Acid Test on the Panda [employer] System. This test has not been approved for use in asymptomatic patients and its performance in this patient population has not been evaluated. Negative results do not rule out the presence of SARS-CoV-2, influenza A, and/or influenza B. Fact sheets for the EUA can be found at the following links: For Healthcare Providers: https://www.[employer].gov/media/324905/download For Patients: https://www.[employer].gov/media/194892/download NT PRO BNP - Normal Narrative: Pride Study Cut-offs Rule In: < /= 50 Years >450 pg/mL 51 Years - 75 Years >900 pg/mL 76 Years - 99 Years >1800 pg/mL Rule Out: All patients <300 pg/mL LACTIC ACID, PLASMA - Normal BLOOD CULTURE AEROBIC/ANAEROBIC BLOOD CULTURE AEROBIC/ANAEROBIC CBC AND DIFFERENTIAL Narrative: The following orders were created for panel order CBC w/ Diff. Procedure Abnormality Status --------- ------ CBC Auto Differential[[id number]] Abnormal Final result Please view results for these tests on the individual orders. TROPONIN Radiographic Imaging (if any) During ED Visit XR Chest 1 View (Results Pending) Medications Ordered/Given During ED Visit Medications sodium chloride (PF) (NS) flush 5 mL (has no administration in time range) And sodium chloride 0.9% (NS) (has no administration in time range) sodium chloride 0.9% (NS) bolus 1,000 mL (1,000 mL Intravenous New Bag 08/08/20 3145) cefTRIAXone (ROCEPHIN) IVPB 1 g (premix) (has no administration in time range) azithromycin (ZITHROMAX) 500 mg in sodium chloride (NS) 0.9% 250 mL (vialmate) (500 mg Intravenous New Bag 08/08/202322) ketorolac (TORADOL) injection 15 mg (15 mg Intravenous Given 08/08/202322) Procedures Note: To expedite correspondence this note was generated by [employer] voice recognition software. All imaging has been read by a Radiologist. Darek Mccormack PA-C 08/08/20 9800 EMS reports pt was recently diagnosed with pneumonia. Upon arrival EMS put pt on 4L NC d/t the appearance of difficulty breathing by the patient. Pt states that he wears 2-3L of oxygen at home. Pt reports pain in his chest when he breaths in. Pt AOx3 and speaks in clear sentences. Pt reports coughing up green sputum. Bed: 29 Expected date: Expected time: Means of arrival: Comments: M14, cough/fever, [place] documented in this encounter Scheduled Active and Recently Administ ered Medications (unrecognized section and content) Medication Order 12/11/2020 12/12/2020 12/13/2020 ondansetron (ZOFRAN) injection 4 mg (COMPLETED) 4 mg, Intravenous, Once, On Tammy 12/13/20 at 1225, For 1 dose 1223 (Given - Provid er: Yeny Serrano RN)1225 (Due) Continuous Medication Order 12/11/2020 12/12/2020 12/13/2020 sodium chloride 0.9% (NS) (CANCELED) 25 mL/hr, Intravenous, Continuous, Starting on Tammy 12/13/20 at 1445, Pre-Procedure 1445 (New Bag - Prov ider: Selma Swartz RN)1614 (New Bag - Provider: Juanita Roy RN)1615 (New Bag - Provider: Juanita Roy, RAY)1615 (Stopped - Provider: Juanita Roy RN) PRN Medication Order 12/11/2020 12/12/2020 12/13/2020 sodium chloride (PF) (NS) flush 5 mL(Linked Group 1) 5 mL, Intravenous, As needed, line care, Starting on Tammy 12/13/20 at 1214 sodium chloride 0.9% (NS)(Linked Group 1) 0-150 mL/hr, Intravenous, As needed, To flush line after IV infusions when no maintenance IV ordered or a compatibility issue. Infuse 20ml at the same rate as the secondary infusion, Starting on Tammy 12/13/20 at 1214, Run as Primary IV. NOT intended for KVO. Linked Groups Order Group 1: Insert peripheral IV (COMPLETED) SRAVANI, Once, On Tammy 12/13/20 at 1215, For 1 occurrence And Saline lock IV (CANCELED) SRAVANI, Once, On Tammy 12/13/20 at 1215, For 1 occurrence And sodium chloride (PF) (NS) flush 5 mLJump to med 5 mL, Intravenous, As needed, line care, Starting on Tammy 12/13/20 at 1214 And sodium chloride 0.9% (NS)Jump to med 0-150 mL/hr, Intravenous, As needed, To flush line after IV infusions when no maintenance IV ordered or a compatibility issue. Infuse 20ml at the same rate as the secondary infusion, Starting on Tammy 12/13/20 at 1214
Run as Primary IV. NOT intended for KVO.
Scheduled Medication Order 08/19/2021 08/20/2021 08/21/2021 albuterol (PROVENTIL) 2.5 mg /3 mL (0.083 %) nebulizer solution 2.5 mg (COMPLETED) 2.5 mg, Inhalation, Once, On Thu08/19/21 at 1720, For 1 dose, SVN Treatment 2 of 3; 2nd treatment Albuterol 1758 (Given - Provider: Stephanie Christopher, ALL) albuterol (PROVENTIL) 2.5 mg /3 mL (0.083 %) nebulizer solution 2.5 mg (COMPLETED) 2.5 mg, Inhalation, Once, On Thu08/19/21 at 1720, For 1 dose, SVN Treatment 3 of 3; 3rd treatment Albuterol 1757 (Given - Provider: Stephanie Christopher, ALL) azithromycin (ZITHROMAX) tablet 250 mg 250 mg, Oral, Daily, First dose on Thu08/20/21 at 0900, For 4 doses, Indication: COPD Exacerbation 821 (Given - Provider: Louts Holly RN) 926 (Given - Provider: Inge Chavez, RN) azithromycin (ZITHROMAX) tablet 500 mg (COMPLETED) 500 mg, Oral, Once, On Thu08/19/21 at 2020, For 1 dose, Indication: COPD Exacerbation 2035 (Given - Provider: Gregory Harrington RN) budesonide-formoteroL (SYMBICORT) 160-4.5 mcg/actuation inhaler 2 puff 2 puff, Inhalation, 2 times daily, First dose on Thu08/19/21 at 2100, SPACER REQUIRED FOR ADMINISTRATION 5 (Given - Provider: Fabiola Armstrong RN)821 (Given - Provider: Lotus Holly RN)2050 (Given - Provider: Brandon Reyes, RN) 09 (Given - Provider: Inge Chavez, RN) buprenorphine-nalOXone (SUBOXONE) 8-2 mg sublingual film 8 mg of buprenorphine 8 mg of buprenorphine, Sublingual, 2 times daily, First dose on Thu08/19/21 at 2100, Place one film under tongue until dissolves. If needed, a second film may be placed under tongue on the opposite side from the first film (minimize overlapping). Do not move film after placement. If a third film is needed, wait until the first 2 films have dissolved. Splitting a film in half may be clinically appropriate. Verify patient has received Patient Med Guide for Suboxone., Indication: Treatment of opioid dependence, Is this a continuation of home therapy? Yes 2035 (Given - Provider: Gregory Harrington RN) 821 (Given - Provider: Lotus Holly RN)2050 (Given - Provider: Brandon Reyes, RAY) 926 (Hold - Provider: Inge Chavez, RAY - Reason: Patient/family refused - Comment: pt request to take med at noon) enoxaparin (LOVENOX) syringe 40 mg 40 mg, Subcutaneous, Daily, First dose on Thu08/19/21 at 2020, Administer in abdomen unless otherwise directed by prescriber. Notify physician if patient refuses., Indication: VTE Prophylaxis 2035 (Given - Provider: Gregory Harrington RN) 904 (Given - Provider: Lotus Holly RN) 09 (Given - Provider: Inge Chavez, ARY) gabapentin (NEURONTIN) capsule 300 mg 300 mg, Oral, Nightly, First dose on Thu08/19/21 at 2100 0005 (Given - Provider: Fabiola Armstrong RN)2050 (Given - Provider: Brandon Reyes, RN) guaiFENesin (MUCINEX) 12 hr tablet 600 mg 600 mg, Oral, Every 12 hours scheduled, First dose on Thu08/20/21 at 0915, DO NOT CRUSH OR CHEW. 0905 (Given - Provider: Lotus Holly RN)2050 (Given - Provider: Brandon Reyes, RN) 926 (Given - Provider: Inge Chavez, RAY) hydroCHLOROthiazide (HYDRODIURIL) tablet 12.5 mg 12.5 mg, Oral, Every morning, First dose on Thu08/20/21 at 0900 0905 (Given - Provider: Lotus Holly RN) 927 (Given - Provider: Inge Chavez, RAY) ipratropium-albuteroL (DUO-NEB) 0.5-2.5 mg/3 ml nebulizer solution 3 mL (COMPLETED) 3 mL, Inhalation, Once (RT), On Thu08/19/21 at 1720, For 1 dose, SVN Treatment 1 of 3; 1st treatment Albuterol with Atrovent, followed by 2 Albuterol SVN. 1758 (Given - Provider: Stephanie Christopher, ALL) ipratropium-albuteroL (DUO-NEB) 0.5-2.5 mg/3 ml nebulizer solution 3 mL 3 mL, Inhalation, Every 6 hours scheduled (RT), First dose on Thu08/19/21 at 2020 0032 (Given - Provider: Juliana Tracy, ALL)0200 (Not Given - Provider: Juliana Tracy RRT - Reason: Patient not available)0847 (Given - Provider: Osiris Weber, AVIATION SAFETY OFFICER)1313 (Given - Provider: Jihan Moore, AVIATION SAFETY OFFICER)2040 (Given - Provider: Serge Centeno, ALL) 0259 (Given - Provider: Serge Centeno, ALL)0804 (Given - Provider: Marisol Valdes, AVIATION SAFETY OFFICER)1400 (Due) methylPREDNISolone sod suc(PF) (SOLU-medrol) Injection 125 mg (COMPLETED) 125 mg, Intravenous, Once, On Thu08/19/21 at 1720, For 1 dose 1737 (Given - Provider: Fahad Bedolla, RAY) methylPREDNISolone sod suc(PF) (SOLU-medrol) Injection 40 mg (COMPLETED) 40 mg, Intravenous, Every 8 hours scheduled, First dose on Thu08/19/21 at 2200, For 3 doses 0004 (Given - Provider: Fabiola Armstrong RN)0554 (Given - Provider: Fabiola Armstrong RN)165 (Given - Provider: Lotus Holly, RAY) montelukast (SINGULAIR) tablet 10 mg 10 mg, Oral, Nightly, First dose on Thu08/19/21 at 2100 0004 (Given - Provider: Fabiola Armstrong RN)2052 (Given - Provider: Brandon Reyes RN) nicotine (NICODERM CQ) 14 mg/24 hr 1 patch 1 patch, Transdermal, Administer over 24 Hours, Daily, First dose on Thu08/19/21 at 2100, U/P Listed Hazardous Drug. Waste Must Be Disposed in [employer] Waste Container 0005 (Patch Applied - Provider: Fabiola Armstrong RN)2035 (Patch Removed - Provider: Brandon Reyes RN)2052 (Patch Applied - Provider: Brandon Reyes RN) 151 (Due: Patch Removed - Provider: Discharge Provider, Automatic - Comment: Time automatically adjusted from order being discontinued) predniSONE (DELTASONE) tablet 40 mg 40 mg, Oral, Daily, First dose on Thu08/21/21 at 0800, For 4 doses, Give with food, Specify: start at hour 32 after last dose of Solu-Medrol X 3 Q8 hours 0928 (Given - Provider: Inge Chavez, RAY) sodium chloride (PF) (NS) flush 5 mL(Linked Group 1) 5 mL, Intravenous, Every 8 hours scheduled, First dose on Thu08/19/21 at 2200, Saline lock 0008 (Given - Provider: Fabiola Armstrong RN)0554 (Given - Provider: Fabiola Armstrong RN)1400 (Canceled Entry - Provider: Lotus Holly RN)2055 (Given - Provider: Brandon Reyes RN) 0506 (Canceled Entry - Provider: Brandon Reyes RN)1400 (Due) tamsulosin (FLOMAX) 24 hr capsule 0.4 mg 0.4 mg, Oral, Every morning before breakfast, First dose on Thu08/20/21 at 0730, DO NOT CRUSH OR CHEW. Give 30 minutes after the same meal daily. Monitor for orthostasis due to potential risk of syncope. 09 (Given - Provider: Lotus Holly RN) 0928 (Given - Provider: Inge Chavez, RN) PRN Medication Order 08/19/2021 08/20/2021 08/21/2021 acetaminophen (TYLENOL) tablet 650 mg 650 mg, Oral, Every 4 hours PRN, mild pain, fever 100.4 F or greater, headaches, Starting on Thu08/19/21 at 2015 0005 (Given - Provider: Fabiola Armstrong RN) 0944 (Given - Provider: Inge Chavez, RN) aluminum-magnesium hydroxide-simethicone (MAALOX PLUS) 200-200-20 mg/5 mL suspension 30 mL 30 mL, Oral, Every 4 hours PRN, indigestion, Starting on Thu08/19/21 at 2015 cyclobenzaprine (FLEXERIL) tablet 10 mg 10 mg, Oral, Every 12 hours PRN, muscle spasms, Starting on Thu08/19/21 at 2015 0944 (Given - Provider: Inge Chavez, RAY) diphenhydrAMINE (BENADRYL) tablet 25 mg 25 mg, Oral, Every 6 hours PRN, allergies, itching, Starting on Thu08/19/21 at 2015 0004 (Given - Provider: Fabiola Armstrong RN)0822 (Given - Provider: Lotus Holly RN) iopamidoL (ISOVUE-370) 76 % injection 75 mL (COMPLETED) 75 mL, Intravenous, Once in imaging, contrast, Starting on Thu08/19/21 at 1951, For 1 dose 2010 (Contrast Administered - Provider: Abebe Blanco, TECHNOLOGIST) ipratropium-albuteroL (DUO-NEB) 0.5-2.5 mg/3 ml nebulizer solution 3 mL 3 mL, Inhalation, Every 4 hours PRN (RT), shortness of breath, wheezing, Starting on Thu08/19/21 at 2016 naloxone (NARCAN) injection 0.1 mg(Linked Group 2) 0.1 mg, Intravenous, As needed, opioid reversal, For respiratory rate less than or equal to 8 per minute., Starting on Thu08/19/21 at 1927, Mix nalOXone (NARCAN) 0.4 mg (1mL) with 9 mL of Normal Saline to total 10 mL. Administer 0.1 mg (2.5mL) IV Push every 2 minutes until respiratory rate is 10 or greater. naloxone (NARCAN) injection 0.4 mg(Linked Group 2) 0.4 mg, Intravenous, As needed, opioid reversal, patient is pulseless, breathless, and unresponsive, Starting on Thu08/19/21 at 1927, Call a code first, then administer naloxone dose undiluted IV Push over 30 seconds. nitroGLYCERIN (NITROSTAT) SL tablet 0.4 mg 0.4 mg, Sublingual, Every 5 min PRN, chest pain, Starting on Thu08/19/21 at 2016, For chest pain. May give up to 3 doses. Call physician for chest pain unrelieved by Nitroglycerin, or recurrent chest pain. DO NOT CRUSH OR CHEW. ondansetron (ZOFRAN) injection 4 mg(Linked Group 3) 4 mg, Intravenous, Every 6 hours PRN, nausea, vomiting, Starting on Thu08/19/21 at 1859, Use oral route first, if tolerated. ondansetron (ZOFRAN-ODT) disintegrating tablet 4 mg(Linked Group 3) 4 mg, Oral, Every 6 hours PRN, nausea, vomiting, Starting on Thu08/19/21 at 1859, Use oral route first, if tolerated. Formulation requires tablet remain in sealed package until immediately prior to dose being administered. sodium chloride (PF) (NS) flush 5 mL(Linked Group 1) 5 mL, Intravenous, As needed, line care, Starting on Thu08/19/21 at 1856 sodium chloride 0.9% (NS)(Linked Group 1) 0-150 mL/hr, Intravenous, As needed, To flush line after IV infusions when no maintenance IV ordered or a compatibility issue. Infuse 20ml at the same rate as the secondary infusion, Starting on Thu08/19/21 at 1856, Run as Primary IV. NOT intended for KVO. Linked Groups Order Group 1: Saline lock IV (CANCELED) Routine, Continuous, Starting on Thu08/19/21 at 1900, Until Specified And sodium chloride (PF) (NS) flush 5 mLJump to med 5 mL, Intravenous, As needed, line care, Starting on Thu08/19/21 at 1856 And sodium chloride (PF) (NS) flush 5 mLJump to med 5 mL, Intravenous, Every 8 hours scheduled, First dose on Thu08/19/21 at 2200
Saline lock
And sodium chloride 0.9% (NS)Jump to med 0-150 mL/hr, Intravenous, As needed, To flush line after IV infusions when no maintenance IV ordered or a compatibility issue. Infuse 20ml at the same rate as the secondary infusion, Starting on Thu08/19/21 at 1856
Run as Primary IV. NOT intended for KVO.
Group 2: naloxone (NARCAN) injection 0.1 mgJump to med 0.1 mg, Intravenous, As needed, opioid reversal, For respiratory rate less than or equal to 8 per minute., Starting on Thu08/19/21 at 1927
Mix nalOXone (NARCAN) 0.4 mg (1mL) with 9 mL of Normal Saline to total 10 mL. Administer 0.1 mg (2.5mL) IV Push every 2 minutes until respiratory rate is 10 or greater.
And Notify physician (CANCELED) STAT, Until discontinued, Starting on Thu08/19/21 at 1930, Until Specified
Respiratory rate less than: 8
For respiratory rate less than or equal to 8, notify physician and/or appropriate staff for additional orders. And naloxone (NARCAN) injection 0.4 mgJump to med 0.4 mg, Intravenous, As needed, opioid reversal, patient is pulseless, breathless, and unresponsive, Starting on Thu08/19/21 at 1927
Call a code first, then administer naloxone dose undiluted IV Push over 30 seconds.
Group 3: ondansetron (ZOFRAN-ODT) disintegrating tablet 4 mgJump to med 4 mg, Oral, Every 6 hours PRN, nausea, vomiting, Starting on Thu08/19/21 at 1859
Use oral route first, if tolerated. Formulation requires tablet remain in sealed package until immediately prior to dose being administered.
Or ondansetron (ZOFRAN) injection 4 mgJump to med 4 mg, Intravenous, Every 6 hours PRN, nausea, vomiting, Starting on Thu08/19/21 at 1859
Use oral route first, if tolerated.
Scheduled Medication Order 10/25/2023 10/26/2023 10/27/2023 albuterol (PROVENTIL) 2.5 mg /3 mL (0.083 %) nebulizer solution 2.5 mg (COMPLETED) 2.5 mg, Inhalation, Once, On Thu10/25/23 at 2034, For 1 dose 2048 (Given - Provider: Wolf Montiel RRT) albuterol (PROVENTIL) 2.5 mg /3 mL (0.083 %) nebulizer solution 2.5 mg (COMPLETED) 2.5 mg, Inhalation, Once, On Thu10/25/23 at 2034, For 1 dose 2047 (Given - Provider: Wolf Montiel RRT) amoxicillin (AMOXIL) capsule 500 mg 500 mg, Oral, Every 8 hours scheduled, First dose on Thu10/26/23 at 1730, Indication: Periodontitis 1730 (Canceled Entry - Provider: Dani Maldonado RN - Comment: meds not here on time)2144 (Given - Provider: Dani Maldonado RN) 0534 (Given - Provider: Dani Maldonado RN)1613 (Given - Provider: Tavon Flor RN) enoxaparin (LOVENOX) syringe 40 mg 40 mg, Subcutaneous, Daily, First dose on Thu10/26/23 at 1100, Administer in abdomen unless otherwise directed by prescriber. Notify physician if patient refuses., Indication: VTE Prophylaxis 1027 (Given - Provider: Rachana Magallanes RN) 0836 (Given - Provider: aTvon Flor RN) furosemide (LASIX) tablet 20 mg 20 mg, Oral, Daily, First dose on Thu10/26/23 at 1100 1027 (Given - Provider: Rachana Magallanes RN) 0836 (Given - Provider: Tavon Flor RN) guaiFENesin (MUCINEX) 12 hr tablet 600 mg 600 mg, Oral, 2 times daily, First dose on Thu10/26/23 at 1100, DO NOT CRUSH OR CHEW. 1027 (Given - Provider: Rachana Magallanes RN)2144 (Given - Provider: Dani Maldonado, RN) 0836 (Given - Provider: Tavon Flor, RN) ipratropium-albuteroL (DUO-NEB) 0.5-2.5 mg/3 ml nebulizer solution 3 mL (COMPLETED) 3 mL, Inhalation, Once, On 10/25/23 at 1940, For 1 dose 1951 (Given - Provider: Wolf Montiel, AVIATION SAFETY OFFICER) ipratropium-albuteroL (DUO-NEB) 0.5-2.5 mg/3 ml nebulizer solution 3 mL 3 mL, Inhalation, 4 times daily (RT), First dose on 10/25/23 at 2120 2120 (Not Given - Provider: Chelle Mcleod, AVIATION SAFETY OFFICER - Reason: Unreviewed Transfer Orders) 0814 (Given - Provider: Mirta Cuello, AVIATION SAFETY OFFICER)1220 (Given - Provider: Mirta Cuello, AVIATION SAFETY OFFICER)1613 (Given - Provider: Janusz Hess, AVIATION SAFETY OFFICER)2030 (Given - Provider: Tereso Boland, AVIATION SAFETY OFFICER) 1005 (Given - Provider: Devon Still, AVIATION SAFETY OFFICER)1411 (Given - Provider: Devon Still, AVIATION SAFETY OFFICER) lisinopriL (PRINIVIL,ZESTRIL) tablet 30 mg 30 mg, Oral, Daily, First dose on Thu10/26/23 at 1100 1027 (Given - Provider: Rachana Magallanes RN) 0836 (Given - Provider: Tavon Flor, RAY) mometasone-formoterol (DULERA) 200-5 mcg/actuation inhaler 2 puff 2 puff, Inhalation, 2 times daily (RT), First dose on Thu10/26/23 at 1200, SPACER REQUIRED FOR ADMINISTRATION 1238 (Given - Provider: Rachana Magallanes, RAY)2148 (Given - Provider: Dani Maldonado, RAY) 1417 (Given - Provider: Devon Still, AVIATION SAFETY OFFICER) pantoprazole (PROTONIX) EC tablet 40 mg 40 mg, Oral, Daily, First dose on Thu10/26/23 at 1100, DO NOT CRUSH OR CHEW. 1026 (Given - Provider: Rachana Magallanes RN) 0836 (Given - Provider: Tavon Flor RN) potassium chloride SA (K-DUR,KLOR-CON) CR tablet 20 mEq 20 mEq, Oral, Daily, First dose on Thu10/26/23 at 1100, DO NOT CRUSH OR CHEW (if instructed may dissolve tablet(s) in liquid) DO NOT ADMINISTER DISSOLVED TABLET VIA SURGICALLY PLACED TUBE OR TUBE less than 14 [place]. To administer dissolved tablet(s) mix with 4 ounces of water over 2-3 minutes, stir for 30 seconds prior to administration; rinse dosing cup and administer residual medication to ensure full dose given 1027 (Given - Provider: Rachana Magallanes RN) 0836 (Given - Provider: Tavon Flor RN) predniSONE (DELTASONE) tablet 40 mg 40 mg, Oral, Daily with breakfast, First dose on Thu10/27/23 at 0800 0836 (Given - Provider: Tavon Flor RN) predniSONE (DELTASONE) tablet 60 mg (COMPLETED) 60 mg, Oral, Once, On Thu10/25/23 at 1940, For 1 dose 2006 (Given - Provider: Leigh Reyes RN) sodium chloride (PF) (NS) flush 5 mL(Linked Group 1) 5 mL, Intravenous, Every 8 hours scheduled, First dose on Thu10/26/23 at 1400, Saline lock 1400 (Canceled Entry - Provider: Rachana Magallanes RN)2145 (Given - Provider: Dani Maldonado, RAY) 0600 (Given - Provider: Dani Maldonado RN) tamsulosin (FLOMAX) 24 hr capsule 0.4 mg 0.4 mg, Oral, Every morning before breakfast, First dose on Thu10/27/23 at 0730, DO NOT CRUSH OR CHEW. Give 30 minutes after the same meal daily. Monitor for orthostasis due to potential risk of syncope. 0836 (Given - Provider: Tavon Flor RN) PRN Medication Order 10/25/2023 10/26/2023 10/27/2023 acetaminophen (TYLENOL) tablet 650 mg 650 mg, Oral, Every 4 hours PRN, mild pain, headaches, Starting on Thu10/25/23 at 2115, Do not exceed max of 4000 mg acetaminophen in 24 hours. 2303 (Given - Provider: Harinder Gil, RAY) 1236 (Given - Provider: Rachana Magallanes, RN) 0534 (Given - Provider: Dani Maldonado, RAY) acetaminophen (TYLENOL) tablet 650 mg (CANCELED) 650 mg, Oral, Every 4 hours PRN, mild pain, fever 100.4 F or greater, headaches, Starting on Thu10/26/23 at 1004 2144 (Given - Provider: Dani Maldonado RN) 0049 (Given - Provider: Dani Maldonado RN) cyclobenzaprine (FLEXERIL) tablet 10 mg 10 mg, Oral, Every 12 hours PRN, muscle spasms, Starting on Thu10/26/23 at 1004 1236 (Given - Provider: Rachana Magallanes RN) 0049 (Given - Provider: Dani Maldonado RN) guaiFENesin (ROBITUSSIN) 100 mg/5 mL syrup 200 mg 200 mg, Oral, Every 4 hours PRN, congestion, cough, Starting on Thu10/27/23 at 0955 1416 (Given - Provider: Tavon Flor RN) ipratropium-albuteroL (DUO-NEB) 0.5-2.5 mg/3 ml nebulizer solution 3 mL 3 mL, Inhalation, Every 2 hour PRN (RT), wheezing, shortness of breath, Starting on Thu10/25/23 at 2115 lidocaine (XYLOCAINE) 2 % viscous solution 5 mL 5 mL, Mouth/Throat, Every 6 hours PRN, throat pain, Starting on Thu10/27/23 at 0959, Maximum of 8 doses in 24 hours loratadine (CLARITIN) tablet 10 mg 10 mg, Oral, Daily PRN, allergies, Starting on Thu10/26/23 at 1004 naloxone (NARCAN) injection 0.1 mg(Linked Group 2) 0.1 mg, Intravenous, As needed, opioid reversal, For respiratory rate less than or equal to 8 per minute., Starting on Thu10/25/23 at 2114, Mix nalOXone (NARCAN) 0.4 mg (1mL) with 9 mL of Normal Saline to total 10 mL. Administer 0.1 mg (2.5mL) IV Push every 2 minutes until respiratory rate is 10 or greater. naloxone (NARCAN) injection 0.4 mg(Linked Group 2) 0.4 mg, Intravenous, As needed, opioid reversal, patient is pulseless, breathless, and unresponsive, Starting on Thu10/25/23 at 2114, Call a code first, then administer naloxone dose undiluted IV Push over 30 seconds. ondansetron (ZOFRAN) injection 4 mg(Linked Group 3) 4 mg, Intravenous, Every 6 hours PRN, nausea, vomiting, Starting on Thu10/25/23 at 2115, Use oral route first, if tolerated. ondansetron (ZOFRAN-ODT) disintegrating tablet 4 mg(Linked Group 3) 4 mg, Oral, Every 6 hours PRN, nausea, vomiting, Starting on Thu10/25/23 at 2115, Use oral route first, if tolerated. Formulation requires tablet remain in sealed package until immediately prior to dose being administered. sodium chloride (PF) (NS) flush 5 mL(Linked Group 1) 5 mL, Intravenous, As needed, line care, Starting on Thu10/26/23 at 1004 sodium chloride 0.9% (NS)(Linked Group 1) 0-150 mL/hr, Intravenous, As needed, To flush line after IV infusions when no maintenance IV ordered or a compatibility issue. Infuse 20ml at the same rate as the secondary infusion, Starting on Thu10/26/23 at 1004, Run as Primary IV. NOT intended for KVO. Linked Groups Order Group 1: Saline lock IV (CANCELED) Routine, Continuous, Starting on Thu10/26/23 at 1005, Until Specified And sodium chloride (PF) (NS) flush 5 mLJump to med 5 mL, Intravenous, As needed, line care, Starting on Thu10/26/23 at 1004 And sodium chloride (PF) (NS) flush 5 mLJump to med 5 mL, Intravenous, Every 8 hours scheduled, First dose on Thu10/26/23 at 1400, Saline lock And sodium chloride 0.9% (NS)Jump to med 0-150 mL/hr, Intravenous, As needed, To flush line after IV infusions when no maintenance IV ordered or a compatibility issue. Infuse 20ml at the same rate as the secondary infusion, Starting on Thu10/26/23 at 1004, Run as Primary IV. NOT intended for KVO. Group 2: naloxone (NARCAN) injection 0.1 mgJump to med 0.1 mg, Intravenous, As needed, opioid reversal, For respiratory rate less than or equal to 8 per minute., Starting on Thu10/25/23 at 2113, Mix nalOXone (NARCAN) 0.4 mg (1mL) with 9 mL of Normal Saline to total 10 mL. Administer 0.1 mg (2.5mL) IV Push every 2 minutes until respiratory rate is 10 or greater. And Notify physician (CANCELED) STAT, Until discontinued, Starting on Thu10/25/23 at 2114, Until Specified, Respiratory rate less than: 8, For respiratory rate less than or equal to 8, notify physician and/or appropriate staff for additional orders. And naloxone (NARCAN) injection 0.4 mgJump to med 0.4 mg, Intravenous, As needed, opioid reversal, patient is pulseless, breathless, and unresponsive, Starting on Thu10/25/23 at 2113, Call a code first, then administer naloxone dose undiluted IV Push over 30 seconds. Group 3: ondansetron (ZOFRAN-ODT) disintegrating tablet 4 mgJump to med 4 mg, Oral, Every 6 hours PRN, nausea, vomiting, Starting on 10/25/23 at 2114, Use oral route first, if tolerated. Formulation requires tablet remain in sealed package until immediately prior to dose being administered. Or ondansetron (ZOFRAN) injection 4 mgJump to med 4 mg, Intravenous, Every 6 hours PRN, nausea, vomiting, Starting on Thu10/25/23 at 2114, Use oral route first, if tolerated. Scheduled Medication Order 10/29/2023 10/30/2023 10/31/2023 Azithromycin (ZITHROMAX) tablet 500 mg (COMPLETED) 500 mg, Oral, ONCE, 1 dose, On Tammy 10/29/23 at 2044 2108 (Given - Provider: Flaquita Crawford RN) Azithromycin (ZITHROMAX) tablet 500 mg (COMPLETED) 500 mg, Oral, EVERY 24 HOURS, 2 doses, First dose (after last modification) on Thu10/30/23 at 0900, Last dose on Thu10/31/23 at 0900 0923 (Given - Provider: Austin Castro RN) 0904 (Given - Provider: Austin Castro RN) budesonide-glycopyrrol ate-Formoterol (BREZTRI) 160-9-4.8 MCG/ACT inhaler 2 puff 2 puff, Inhalation, 2 TIMES DAILY, First dose on Thu10/29/23 at 2100, Until Discontinued 2153 (Given - Provider: Jamal Gomez RCP) 0858 (Given - Provider: Lucy Hoyt RCP)2018 (Given - Provider: Kiah Lee RCP) 08 (Given - Provider: Haylee Moreau RCP) Enoxaparin Sodium (LOVENOX) injection 40 mg 40 mg, Subcutaneous, EVERY 24 HOURS, First dose on Thu10/29/23 at 2100, Until Discontinued, For SUBCUTANEOUS route ONLY: alternate injection sites between left and right abdominal wall, pinching location and avoiding area around navel. If unable to use abdominal sites, may use the front or side of thighs., Indications: DVT/PE prophylaxis 2108 (Given - Provider: Flaquita Crawford RN) 2038 (Given - Provider: Lawrence Pérez RN) furOSEmide (LASIX) tablet 20 mg 20 mg, Oral, DAILY, First dose on Thu10/30/23 at 0900, Until Discontinued 922 (Given - Provider: Austin Castro RN) 09 (Given - Provider: Austin Castro RN) Ipratropium-albuterol (DUONEB) 0.5-2.5 (3) MG/3ML nebulizer solution 3 mL (COMPLETED) 3 mL, Nebulization, ONCE, 1 dose, On Thu10/29/23 at 1645 1641 (Given - Provider: Michelle Grant RCP) Ipratropium-albuterol (DUONEB) 0.5-2.5 (3) MG/3ML nebulizer solution 3 mL (COMPLETED) 3 mL, Nebulization, ONCE, 1 dose, On Thu10/29/23 at 2030 215 (Given - Provider: Jamal Gomez RCP) Ipratropium-albuterol (DUONEB) 0.5-2.5 (3) MG/3ML nebulizer solution 3 mL (CANCELED) 3 mL, Nebulization, EVERY 6 HOURS NON-STANDARD, First dose on Thu10/29/23 at 2245, Until Discontinued 2334 (Given - Provider: Vasile Vela RCP - Comment: wean to schedule) 0858 (Given - Provider: Lucy Hoyt RCP)1347 (Given - Provider: Lucy Hoyt RCP) Lactated ringers IV solution 1,000 mL (COMPLETED) 1,000 mL, Intravenous, ONCE, 1 dose, On Thu10/29/23 at 1645 1737 ($$New Bag$$ - Provider: Devaughn Meyer RN)2002 (Rate/Dose Verify - Provider: Flqauita Crawford RN)2200 (Rate/Dose Verify - Provider: Flaquita Crawford RN) 0000 (Stopped - Provider: Ruth Calvert RN) lidocaine 4 % patch 1 patch 1 patch, Transdermal, Administer over 12 Hours, EVERY 24 HOURS, First dose on Thu10/29/23 at 2044, Until Discontinued, Apply to ribs . 2108 (Patch Applied - Provider: Flaquita Crawford RN - Comment: ribs, L side) 923 (Patch Removed - Provider: Austin Castro RN)2037 (Patch Applied - Provider: Lawrence Pérez RN - Comment: Left Torso) 904 (Patch Removed - Provider: Austin Castro RN) Lisinopril (PRINIVIL) tablet 30 mg 30 mg, Oral, DAILY, First dose on Thu10/30/23 at 0900, Until Discontinued 922 (Given - Provider: Austin Castro RN) 09 (Given - Provider: Austin Castro RN) Loratadine (CLARITIN) tablet 10 mg 10 mg, Oral, DAILY, First dose on Thu10/30/23 at 0900, Until Discontinued 923 (Given - Provider: Austin Castro RN) 09 (Given - Provider: Austin Castro RN) Nicotine (NICODERM CQ) 21 MG/24HR patch 1 patch(Linked Group 1) 1 patch, Transdermal, EVERY 24 HOURS, First dose on Thu10/30/23 at 0930, Until Discontinued, Apply patch to hairless skin site on upper body or arm. Rotate sites for each application. Do not cut or alter patch. Remove patch after duration of 16-24 hours. To dispose, fold adhesive ends together. 0924 (Patch Applied - Provider: Austin Castro RN) 09 (Patch Applied - Provider: Austin Castro RN)121 (Due: Patch Removed - Provider: System Discharge - Comment: Time automatically adjusted from order being discontinued) Pantoprazole (PROTONIX) tablet DR 40 mg 40 mg, Oral, DAILY, First dose on Thu10/30/23 at 0900, Until Discontinued, Swallow whole; do not crush or chew., Indications: GERD 09 (Given - Provider: Austin Castro RN) 09 (Given - Provider: Austin Castro RN) Potassium chloride (K-DUR) tablet ER 20 mEq 20 mEq, Oral, DAILY, First dose on Thu10/30/23 at 0900, Until Discontinued, Swallow tablets whole; do not crush, chew, or suck on tablet. Tablet may also be broken in half and each half swallowed separately. 922 (Given - Provider: Austin Castro RN) 903 (Given - Provider: Austin Castro RN) predniSONE (DELTASONE) tablet 40 mg 40 mg, Oral, DAILY, 4 doses, First dose (after last modification) on Thu10/30/23 at 0900, Last dose on Thu11/02/23 at 0900 923 (Given - Provider: Austin Castro RN) 09 (Given - Provider: Austin Castro RN) Tamsulosin HCl (FLOMAX) capsule 0.4 mg 0.4 mg, Oral, DAILY, First dose on Thu10/30/23 at 0900, Until Discontinued, Slow release product. Do not chew or crush 922 (Given - Provider: Austin Castro RN) 09 (Given - Provider: Austin Castro RN) VERIFY LINKED PATCH PLACEMENT(Linked Group 1) Other, EVERY 12 HOURS, First dose on Thu10/30/23 at 0900, Until Discontinued, Confirm continued adhesion of nicotine 21 mg/24hr patch at documented site. 924 (Patch Verify - Provider: Austin Castro RN)2048 (Patch Verify - Provider: Lawrence Pérez RN) 905 (Patch Verify - Provider: Austin Castro RN) PRN Medication Order 10/29/2023 10/30/2023 10/31/2023 Acetaminophen (TYLENOL) tablet 975 mg 975 mg, Oral, EVERY 6 HOURS NEEDED, Starting on Tammy 10/29/23 at 2005, Until 10/31/23 at 1412, Mild Pain, Moderate Pain, Maximum dose of acetaminophen is 4000 mg from all sources in 24 hours. 2108 (Given - Provider: Flaquita Crawford RN) 0930 (Given - Provider: Austin Castro RN)154 (Given - Provider: Austin Castro RN) 0005 (Given - Provider: Lawrence Pérez RN)0904 (Given - Provider: Austin Castro RN) Albuterol inhaler 2 puff 2 puff, Inhalation, EVERY 6 HOURS NEEDED, Starting on Tammy 10/29/23 at 2104, Until 10/31/23 at 1412, Wheezing, Wait at least one(1) full minute between inhalations Cyclobenzaprine (FLEXERIL) tablet 10 mg 10 mg, Oral, 2 TIMES DAILY NEEDED, Starting on Tammy 10/29/23 at 205, Until 10/31/23 at 1412, Muscle spasms 2120 (Given - Provider: Flaquita Crawford RN) 0930 (Given - Provider: Austin Castro RN) 0005 (Given - Provider: Lawrence Pérez RN) guaiFENesin (MUCINEX) tablet SR 600 mg 600 mg, Oral, 2 TIMES DAILY NEEDED, Starting on Thu10/30/23 at 1535, Until 10/31/23 at 1412, Congestion, Cough, Do not crush, chew, or break. 154 (Given - Provider: Austin Castro RN) 0908 (Given - Provider: Austin Castro RN) Ipratropium-albuterol (DUONEB) 0.5-2.5 (3) MG/3ML nebulizer solution 3 mL 3 mL, Nebulization, EVERY 6 HOURS NEEDED, Starting on Thu10/30/23 at 1545, Until 10/31/23 at 1412, Shortness of Breath, Cough, Breathing Treatment, Respiratory Distress, Wheezing 2018 (Given - Provider: Kiah Lee RCP) 0820 (Given - Provider: Haylee Moreau RCP) Melatonin tablet 6 mg 6 mg, Oral, DAILY AT BEDTIME NEEDED, Starting on Tammy 10/29/23 at 2016, Until 10/31/23 at 1412, Insomnia Nystatin (MYCOSTATIN) oral suspension 1,000,000 Units 1,000,000 Units, Swish & Swallow, 4 TIMES DAILY NEEDED, Starting on Tammy 10/29/23 at 2115, Until 10/31/23 at 1412, Thrush Ondansetron (ZOFRAN) tablet 4 mg(Linked Group 2) 4 mg, Oral, EVERY 6 HOURS NEEDED, Starting on Thu10/29/23 at 2016, Until 10/31/23 at 1412, Nausea / Vomiting, 1st line for Nausea/Vomiting Ondansetron 4mg/2ml (ZOFRAN) injection 4 mg(Linked Group 2) 4 mg, Intravenous, EVERY 6 HOURS NEEDED, Starting on Thu10/29/23 at 2016, Until 10/31/23 at 1412, Nausea / Vomiting, 1st line for Nausea/Vomiting Polyethylene glycol (MIRALAX) packet 17 g 17 g, Oral, DAILY NEEDED, Starting on Thu10/29/23 at 2016, Until 10/31/23 at 1412, Constipation 1st Line Sodium chloride 0.9% IV solution 250 mL Intravenous, at 20 mL/hr, NEEDED, Starting on Thu10/29/23 at 2014, Until 10/31/23 at 1412, Carrier Fluid - See Admin. Inst, 250mL 0.9NS to be used as carrier fluid for intermittent small volume or piggyback medication administration as needed. Infusion rate of the carrier fluid should be set at 20 mL/hr unless the rate as the intermittent medication is less than 20 mL/hr. For intermittent medications with a rate less than 20 mL/hr set the carrier fluid at that rate of the intermittent or piggy back medication. Linked Groups Order Group 1: Nicotine (NICODERM CQ) 21 MG/24HR patch 1 patchJump to med 1 patch, Transdermal, EVERY 24 HOURS, First dose on Thu10/30/23 at 0930, Until Discontinued, Apply patch to hairless skin site on upper body or arm. Rotate sites for each application. Do not cut or alter patch. Remove patch after duration of 16-24 hours. To dispose, fold adhesive ends together. And VERIFY LINKED PATCH PLACEMENTJump to med Other, EVERY 12 HOURS, First dose on Thu10/30/23 at 0900, Until Discontinued, Confirm continued adhesion of nicotine 21 mg/24hr patch at documented site. Group 2: Ondansetron 4mg/2ml (ZOFRAN) injection 4 mgJump to med 4 mg, Intravenous, EVERY 6 HOURS NEEDED, Starting on Tammy 10/29/23 at 2017, Until 10/31/23 at 1412, Nausea / Vomiting, 1st line for Nausea/Vomiting Or Ondansetron (ZOFRAN) tablet 4 mgJump to med 4 mg, Oral, EVERY 6 HOURS NEEDED, Starting on Tammy 10/29/23 at 2016, Until 10/31/23 at 1412, Nausea / Vomiting, 1st line for Nausea/Vomiting Care Teams (unrecognized sec tion and content) Elevator Installer Relationship Specialty Start Date End Date Karma Mark, OBJECT ORIENTED PROGRAMMER [address] [place] [address] PCP - General Nurse Practitioner 01/14/20 Elevator Installer Relationship Specialty Start Date End Date Karma Mark, OBJECT ORIENTED PROGRAMMER [address] [place] [address] PCP - General Nurse Practitioner 01/14/20 Elevator Installer Relationship Specialty Start Date End Date Karma Mark, OBJECT ORIENTED PROGRAMMER [address] [place] [address] PCP - General Nurse Practitioner 01/14/20 Elevator Installer Relationship Specialty Start Date End Date Karma Mark, OBJECT ORIENTED PROGRAMMER [address] [place] [address] PCP - General Nurse Practitioner 01/14/20 Elevator Installer Relationship Specialty Start Date End Date Karma Mark, LAM [address] [place] [address] PCP - General Nurse Practitioner 01/14/20 Elevator Installer Relationship Specialty Start Date End Date Karma Mark, OBJECT ORIENTED PROGRAMMER [address] [place] [address] PCP - General Nurse Practitioner 01/14/20 Elevator Installer Relationship Specialty Start Date End Date ThomasKarma suárez, OBJECT ORIENTED PROGRAMMER [address] [place] [address] PCP - General Nurse Practitioner 01/14/20 Elevator Installer Relationship Specialty Start Date End Date Karma Mark, OBJECT ORIENTED PROGRAMMER [address] [place] [address] PCP - General Nurse Practitioner 01/14/20 Elevator Installer Relationship Specialty Start Date End Date Karma Mark, OBJECT ORIENTED PROGRAMMER [address] [place] [address] PCP - General Nurse Practitioner 01/14/20 Elevator Installer Relationship Specialty Start Date End Date Karma Mark, OBJECT ORIENTED PROGRAMMER [address] [place] [address] PCP - General Nurse Practitioner 01/14/20 Elevator Installer Relationship Specialty Start Date End Date Karma Mark, OBJECT ORIENTED PROGRAMMER [address] [place] [address] PCP - General Nurse Practitioner 01/14/20 Elevator Installer Relationship Specialty Start Date End Date Karma Mark, OBJECT ORIENTED PROGRAMMER [address] [place] [address] PCP - General Nurse Practitioner 01/14/20 Elevator Installer Relationship Specialty Start Date End Date Karma Mark, OBJECT ORIENTED PROGRAMMER [address] [place] [address] PCP - General Nurse Practitioner 01/14/20 Elevator Installer Relationship Specialty Start Date End Date Karma Mark, OBJECT ORIENTED PROGRAMMER [address] [place] [address] PCP - General Nurse Practitioner 01/14/20 Elevator Installer Relationship Specialty Start Date End Date Karma Mark, OBJECT ORIENTED PROGRAMMER [address] [facility] [place] [address] PCP - General Nurse Practitioner 01/14/20 Elevator Installer Relationship Specialty Start Date End Date Karma Mark Dani, OBJECT ORIENTED PROGRAMMER [address] [place] [address] PCP - General Nurse Practitioner 01/14/20 Elevator Installer Relationship Specialty Start Date End Date Karma Mark, OBJECT ORIENTED PROGRAMMER [address] [place] [address] PCP - General Nurse Practitioner 01/14/20 Elevator Installer Relationship Specialty Start Date End Date Ivonne Henry MD [address] [place] [phone] PCP - General Internal Medicine 10/02/23 Elevator Installer Relationship Specialty Start Date End Date Ivonne Henry MD [address] [place] [phone] PCP - General Internal Medicine 10/02/23 Elevator Installer Relationship Specialty Start Date End Date Ivonne Henry MD [address] [place] [phone] PCP - General Internal Medicine 10/02/23 Elevator Installer Relationship Specialty Start Date End Date Ivonne Henry MD [address] [place] [phone] PCP - General Internal Medicine 10/02/23 Elevator Installer Relationship Specialty Start Date End Date Ivonne Henry MD [address] [place] [id number] [address] PCP - General Internal Medicine 10/02/23 Elevator Installer Relationship Specialty Start Date End Date Ivonne Henry MD [address] [place] [address] [place], [place] [id number] PCP - General Internal Medicine 10/02/23 Elevator Installer Relationship Specialty Start Date End Date Ivonne Henry MD [address] [place] [address] PCP - General Internal Medicine 10/25/23 Elevator Installer Relationship Specialty Start Date End Date Ivonne Henry MD [address] [place] [id number] PCP - General Internal Medicine 10/02/23 Elevator Installer Relationship Specialty Start Date End Date Ivonne Henry MD [address] PCP - General Internal Medicine 10/02/23 Elevator Installer Relationship Specialty Start Date End Date Ivonne Henry MD [address] PCP - General Internal Medicine 10/02/23 11/03/23 Ivonne Henry MD [address] [place] [address] PCP - General Internal Medicine 11/04/23 Elevator Installer Relationship Specialty Start Date End Date Ivonne Henry MD [address] [place] [facility] [place] [phone] PCP - General Internal Medicine 11/04/23 Elevator Installer Relationship Specialty Start Date End Date Ivonne Henry MD [address] [place] [address] [place], [place] [id number] PCP - General Internal Medicine 11/04/23 Elevator Installer Relationship Specialty Start Date End Date Ivonne Henry MD [address] [place] [address] PCP - General Internal Medicine 11/04/23 Elevator Installer Relationship Specialty Start Date End Date Ivonne Henry MD [address] [place] [address] PCP - General Internal Medicine 10/25/23 Team Status: Active Member Role Status El Blackwell MD Primary Care Provider Active Team Status: Inactive Member Role Status Dates Iker Blackwell MD Primary Care Provider Active St art: May 17, 2024 End: May 18, 2024 Dr. Dior Candelaria , DO Emergency Provider Active S tart: May 17, 2024 End: May 18, 2024 Dr. Nicolas Hall , DO Admit Provider Active Start: May 17, 2024 End: May 18, 2024 Dr. Nicolas Hall , DO Other Provider Active Start: May 17, 2024 End: May 18, 2024 Dr. Elijah Guerrero , DO Attending Provider Active Start: May 17, 2024 End: May 18, 2024 Team Status: Active Member Role Status El Blackwell MD Primary Care Provider Active St art: May 18, 2024 Dr. Dior Candelaria DO Emergency Provider Active S tart: May 18, 2024 Dr. Nicolas Hall , Admit Provider Active Start: May 18, 2024 Dr. Nicolas Hall , Other Provider Active Start: May 18, 2024 Dr. Elijah Guererro DO Attending Provider Active Start: May 18, 2024 Dr. Elijah Guerrero DO Other Provider Active Star t: May 18, 2024 Team Status: Inactive Member Role Status Dates Iker Blackwell MD Primary Care Provider Active St art: May 20, 2024 End: May 23, 2024 Dr. Kunal Stone MD Emergency Provider Active Start: May 20, 2024 End: May 23, 2024 Dr. Noelle Fleming MD Admit Provider Active St art: May 20, 2024 End: May 23, 2024 Dr. Noelle Fleming MD Other Provider Active St art: May 20, 2024 End: May 23, 2024 Dr. Elijah Guerrero DO Attending Provider Active Start: May 20, 2024 End: May 23, 2024 Team Status: Active Member Role Status Dates Iker Blackwell MD Primary Care Provider Active St art: May 21, 2024 Dr. Kunal Stone MD Emergency Provider Active Start: May 21, 2024 Dr. Noelle Fleming MD Admit Provider Active St art: May 21, 2024 Dr. Noelle Fleming MD Other Provider Active St art: May 21, 2024 Dr. Elijah Guerrero DO Attending Provider Active Start: May 21, 2024 Dr. Elijah Guerrero DO Other Provider Active Star t: May 21, 2024 Team Status: Active Member Role Status Dates Iker Blackwell MD Primary Care Provider Active St art: May 22, 2024 Dr. Kunal Stone MD Emergency Provider Active Start: May 22, 2024 Dr. Noelle Fleming MD Admit Provider Active St art: May 22, 2024 Dr. Noelle Fleming MD Other Provider Active St art: May 22, 2024 Dr. Elijah Guerrero DO Attending Provider Active Start: May 22, 2024 Dr. Elijah Guerrero DO Other Provider Active Star t: May 22, 2024 Team Status: Active Member Role Status El Blackwell MD Primary Care Provider Active St art: May 23, 2024 Dr. Kunal Stone MD Emergency Provider Active Start: May 23, 2024 Dr. Noelle Fleming MD Admit Provider Active St art: May 23, 2024 Dr. Noelle Fleming MD Other Provider Active St art: May 23, 2024 Dr. Elijah Guerrero DO Attending Provider Active Start: May 23, 2024 Dr. Elijah Guerrero DO Other Provider Active Star t: May 23, 2024 Team Status: Inactive Member Role Status El Blackwell MD Primary Care Provider Active St art: May 30, 2024 End: May 31, 2024 Dr. Alcides Hanks DO Attending Provider Active Start: May 30, 2024 End: May 31, 2024 Dr. Alcides Hanks DO Emergency Provider Active Start: May 30, 2024 End: May 31, 2024 Team Status: Inactive Member Role Status El Blackwell MD Primary Care Provider Active St art: June 02, 2024 End: June 02, 2024 Iker Blackwell MD Referring Provider Active Start : June 02, 2024 End: June 02, 2024 Dr. Werner Hogan DO Emergency Provider Active Start : June 02, 2024 End: June 02, 2024 Dr. Nabeel Womack MD Attending Provider Active Start: June 02, 2024 End: June 02, 2024 Team Status: Active Member Role Status El Blackwell MD Primary Care Provider Active St art: June 02, 2024 Iker Blackwell MD Referring Provider Active Start : June 02, 2024 Dr. Werner Hogan DO Emergency Provider Active Start : June 02, 2024 Dr. Nabeel Womack MD Attending Provider Active Start: June 02, 2024 Dr. Nabeel Womack MD Other Provider Active Start: June 02, 2024 Team Status: Inactive Member Role Status El Blackwell MD Primary Care Provider Active St art: July 05, 2024 End: July 05, 2024 Dr. Dale Galdamez DO Attending Provider Activ e Start: July 05, 2024 End: July 05, 2024 Dr. Dale Galdamez DO Emergency Provider Activ e Start: July 05, 2024 End: July 05, 2024 Team Status: Inactive Member Role Status El Blackwell MD Primary Care Provider Active St art: July 21, 2024 End: July 21, 2024 Iker Blackwell MD Attending Provider Active Start : July 21, 2024 End: July 21, 2024 Iker Blackwell MD Referring Provider Active Start : July 21, 2024 End: July 21, 2024 Team Status: Inactive Member Role Status El Blackwell MD Primary Care Provider Active St art: August 02, 2024 End: August 02, 2024 Iker Blackwell MD Attending Provider Active Start : August 02, 2024 End: August 02, 2024 Iker Blackwell MD Referring Provider Active Start : August 02, 2024 End: August 02, 2024 Team Status: Active Member Role Status El Blackwell MD Primary Care Provider Active St art: August 02, 2024 End: August 02, 2024 Iker Blackwell MD Referring Provider Active Start : August 02, 2024 End: August 02, 2024 Dr. Jihan Daly MD Attending Provider Active Start: August 02, 2024 End: August 02, 2024 Team Status: Active Member Role Status El Blackwell MD Primary Care Provider Active St art: August 10, 2024 Iker Blackwell MD Attending Provider Active Start : August 10, 2024 Iker Blackwell MD Referring Provider Active Start : August 10, 2024 Team Status: Active Member Role Status El Blackwell MD Primary Care Provider Active St art: August 10, 2024 Iker Blackwell MD Referring Provider Active Start : August 10, 2024 Iker Blackwell MD Other Provider Active Start: [facility] 2024 Dr. Eron Enrique MD Attending Provider Active Start: August 10, 2024 Team Status: Inactive Member Role Status El Blackwell MD Primary Care Provider Active St art: August 18, 2024 End: August 18, 2024 Dr. Elijah Simpson DO Emergency Provider Active Start: August 18, 2024 End: August 18, 2024 Team Status: Inactive Member Role Status El Blackwell MD Primary Care Provider Active St art: August 10, 2024 End: August 10, 2024 Iker Blackwell MD Attending Provider Active Start : August 10, 2024 End: August 10, 2024 Iker Blackwell MD Referring Provider Active Start : August 10, 2024 End: August 10, 2024 Team Status: Inactive Member Role Status Dates Iker Blackwell MD Primary Care Provider Active St art: August 18, 2024 End: August 18, 2024 Dr. Elijah Simpson DO Attending Provider Active Start: August 18, 2024 End: August 18, 2024 Dr. Elijah Simpson DO Emergency Provider Active Start: August 18, 2024 End: August 18, 2024 Team Status: Inactive Member Role Status Dates Iker Blackwell MD Primary Care Provider Active St art: September 21, 2024 End: September 21, 2024 Iker Blackwell MD Attending Provider Active Start : September 21, 2024 End: September 21, 2024 Iker Blackwell MD Referring Provider Active Start : September 21, 2024 End: September 21, 2024 Elevator Installer Relationship Specialty Start Date End Date Ivonne Henry MD [address] [place] [address] PCP - General Internal Medicine 10/25/23 Elevator Installer Relationship Specialty Start Date End Date Ivonne Henry MD [address] [place] [address] PCP - General Internal Medicine 10/25/23 Elevator Installer Relationship Specialty Start Date End Date Ivonne Henry MD [address] [place] [address] PCP - General Internal Medicine 10/25/23 Elevator Installer Relationship Specialty Start Date End Date Ivonne Henry MD [address] [place] [id number] PCP - General Internal Medicine 10/25/23 Team Status: Inactive Member Role Status Dates Iker Blackwell MD Primary Care Provider Active St art: November 23, 2024 End: November 23, 2024 RICKY GOOD Attending Provider Active Start: Natasha leiva 2024 End: November 23, 2024 RICKY GOOD Referring Provider Active Start: Natasha leiva 2024 End: November 23, 2024 JEVON AVINA Other Provider Active Start: Amena aguilera 2024 End: November 23, 2024 Team Status: Active Member Role Status El Blackwell MD Primary Care Provider Active St art: November 25, 2024 Iker Blackwell MD Attending Provider Active Start : November 25, 2024 Iker Blackwell MD Referring Provider Active Start : November 25, 2024 Team Status: Active Member Role Status El Blackwell MD Primary Care Provider Active St art: November 25, 2024 Dr. Chhaya Lam MD Attending Provider Activ e Start: November 25, 2024 Team Status: Inactive Member Role Status El Blackwell MD Primary Care Provider Active St art: November 25, 2024 End: November 25, 2024 Iker Blackwell MD Attending Provider Active Start : November 25, 2024 End: November 25, 2024 Iker Blackwell MD Referring Provider Active Start : November 25, 2024 End: November 25, 2024 Elevator Installer Relationship Specialty Start Date End Date Ivonne Henry MD [address] [facility] [address] [place] [id number] PCP - General Internal Medicine 10/25/23 Team Status: Active Member Role/Relationship Status El Blackwell MD Primary Care Provider Active Team Status: Inactive Member Role/Relationship Status El Blackwell MD Primary Care Provider Active St art: November 23, 2024 End: November 23, 2024 RICKY GOOD Attending Provider Active Start: Natasha leiva 2024 End: November 23, 2024 RICKY GOOD Referring Provider Active Start: Natasha leiva 2024 End: November 23, 2024 JEVON AVINA Other Provider Active Start: Amena aguilera 2024 End: November 23, 2024 Team Status: Inactive Member Role/Relationship Status Dates Iker Blackwell MD Primary Care Provider Active St art: November 25, 2024 End: November 25, 2024 Iker Blackwell MD Attending Provider Active Start : November 25, 2024 End: November 25, 2024 Iker Blackwell MD Referring Provider Active Start : November 25, 2024 End: November 25, 2024 Team Status: Active Member Role/Relationship Status Dates Iker Blackwell MD Primary Care Provider Active St art: November 25, 2024 Dr. Chhaya Lam MD Attending Provider Activ e Start: November 25, 2024 Team Status: Inactive Member Role/Relationship Status Dates Iker Blackwell MD Primary Care Provider Active St art: February 01, 2025 End: February 01, 2025 Dr. Werner Hogan DO Emergency Provider Active Start : February 01, 2025 End: February 01, 2025 Elevator Installer Relationship Specialty Start Date End Date Ivonne Henry MD [address] [place] [address] PCP - General Internal Medicine 10/25/23 Elevator Installer Relationship Specialty Start Date End Date Ivonne Henry MD [address] [place] [address] PCP - General Internal Medicine 10/25/23 Elevator Installer Relationship Specialty Start Date End Date Ivonne Henry MD [address] [place] [address] PCP - General Internal Medicine 10/25/23 Elevator Installer Relationship Specialty Start Date End Date Ivonne Henry MD [address] [place] [address] PCP - General Internal Medicine 10/25/23 Elevator Installer Relationship Specialty Start Date End Date Ivonne Henry MD [address] [place] [address] PCP - General Internal Medicine 10/25/23 Elevator Installer Relationship Specialty Start Date End Date Ivonne Henry MD [address] [place] [address] PCP - General Internal Medicine 10/25/23 Team Status: Active Member Role/Relationship Status El Blackwell MD Primary care physician Active Team Status: Inactive Member Role/Relationship Status El Blackwell MD Primary care physician Active S tart: November 23, 2024 End: November 23, 2024 RICKY GOOD Attending physician Active Start: November 23, 2024 End: November 23, 2024 RICKY GOOD Referring Provider Active Start: 2024 End: November 23, 2024 JEVON AVINA Nurse Practitioner Active Start : November 23, 2024 End: November 23, 2024 Team Status: Inactive Member Role/Relationship Status El Blackwell MD Primary care physician Active S tart: November 25, 2024 End: November 25, 2024 Iker Blackwell MD Attending physician Active Star t: November 25, 2024 End: November 25, 2024 Iker Blackwell MD Referring Provider Active Start : November 25, 2024 End: November 25, 2024 Team Status: Active Member Role/Relationship Status El Blackwell MD Primary care physician Active S tart: November 25, 2024 Dr. Chhaya Lam MD Attending physician Acti ve Start: November 25, 2024 Team Status: Inactive Member Role/Relationship Status El Blackwell MD Primary care physician Active S tart: February 01, 2025 End: February 01, 2025 Dr. Werner Hogan DO Attending physician Active Star t: February 01, 2025 End: February 01, 2025 Dr. Werner Hogan DO Emergency Department Physician Active Start: February 01, 2025 End: February 01, 2025 Team Status: Inactive Member Role/Relationship Status El Blackwell MD Primary care physician Active S tart: March 03, 2025 End: March 03, 2025 Dr. George Amaro MD Attending physician Active Start: March 03, 2025 End: March 03, 2025 Dr. George Amaro MD Referring Provider Active Start: March 03, 2025 End: March 03, 2025 Team Status: Active Member Role/Relationship Status Dates Iker Blackwell MD Primary care physician Active S tart: March 03, 2025 Dr. Elijah Stevens MD Attending physician Active Start: March 03, 2025 Elevator Installer Relationship Specialty Start Date End Date Ivonne Henry MD [address] [place] [address] PCP - General Internal Medicine 10/25/23 Elevator Installer Relationship Specialty Start Date End Date Ivonne Henry MD [address] [address] [place] [address] PCP - General Internal Medicine 10/25/23 Goals (unrecognized section and content) Goals may be documented in a n alternate sectionGoals may be documented in an alternate sectionGoals may be documented in an alternate sectionGoals may be documented in an alternate sectionGoals may be documented in an alternate section (unrecognized sect ion and content) No Status Records FoundNo Status Records FoundNo Status Records FoundNo Status Records FoundNo Status Records FoundNo Status Records FoundNo Status Records FoundNo Status Records Found INFORMATION SOURCE (unrecogn ized section and content) DATE CREATED AUTHOR 10/14/2024 [facility] DATE CREATED AUTHOR AUTHOR'S ORGANIZ ATION 10/20/2024 [facility] DATE CREATED AUTHOR AUTHOR'S ORGANIZ ATION 10/20/2024 [facility] DATE CREATED AUTHOR AUTHOR'S ORGANIZ ATION 03/25/2025 [facility] DATE CREATED AUTHOR AUTHOR'S ORGANIZ ATION 04/01/2025 [facility] nt DATE CREATED AUTHOR AUTHOR'S ORGANIZ ATION 04/12/2025 [facility] DATE CREATED AUTHOR AUTHOR'S JACEKHIRAM ATNOLA 04/16/2025 [facility] DATE CREATED AUTHOR AUTHOR'S AZ ATION 04/19/2025 [facility] FOR RECORDS PERTAINING TO PATIENTS WHO ARE OR HAVE BEEN ENROLLED IN A CHEMICAL DEPENDENCY/SUBSTANCEABUSE PROGRAM, SOME INFORMATION MAY BE OMITTED. This clinical summary was aggregated from multiple sources. Caution should be exercised in using it in the provision of clinical care. This summary normalizes information from multiple sources, and as a consequence, information in this document may materially change the coding, format and clinical context of patient data. In addition, data may be omitted in some cases. CLINICAL DECISIONS SHOULD BE BASED ON THE PRIMARY CLINICAL RECORDS. [facility] provides no warranty or guarantee of the accuracy or completeness of information in this document.
[2025-05-31 12:23] LABS: Color, Urine Yellow (Yellow); Glucose, Dipstick Normal (Normal); Ketone-Dipstick Negative (Negative); Leukocyte Esterase-Dipstick 25 /ul (Negative); Nitrite-Dipstick Negative (Negative); Occult Blood-Urine Negative /ul (Negative); Protein-Dipstick 15 mg/dl (Negative); Specific Gravity, Urine 1.010 (1.002-1.030); Urine Bilirubin Dipstick Negative (Negative)
== END | disposition home or self-care (01) ==
LOC: MTLAB 09:39
PROVIDERS: PCP Family Medicine
DX: R30.0 Dysuria (principal)
CPT/HCPCS: 81002

== ENCOUNTER 2025-06-03 22:00 | Observation (INO) | payer MEDICARE, MEDICAID, SELFPAY ==
[2025-06-03 22:02] VITALS: BP 164/98; PULSE 117; RESP 20; TEMP 36.8; O2SAT 98; O2SAT 99; BMI 21.9
[2025-06-03 22:08] VITALS: BP 179/109; PULSE 107; RESP 20; TEMP 36.8; O2SAT 99
--- NOTE | 2025-06-03 22:37 | EDS_ITS ---
HPI <Dr. Elijah Simpson DO - Last Filed: 06/04/25 00:29> History of Present Illness Chief Complaint: Nausea/Vomiting Informant: patient Onset/Context/Timing Onset: Today Context: Sudden Onset Timing: Continuous Quality: Spinning, nauseated Location: Generalized Worsened by: Opening his eyes Relieved by: Closing his eyes Narrative Narrative: Patient presents with dizziness, nausea, vomiting that began today. Patient states it began rather suddenly. Patient states it has been constant. Patient describes it as a spinning sensation. Patient states it is worse whenever he opens his eyes and is somewhat better when he closes his eyes. Patient states he recently finished prostate cancer radiation treatment. Patient also admits to some tinnitus. Patient denies any changes in his hearing. Patient admits to some urinary frequency. Patient also admits to some subjective chills but denies any fevers. [facility] <Dr. 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 100 mcg-umeclid 1 ea inhalation DAILY breathing 01/21/24 Unknown History 62.5 mcg-vilant 25 mcg inhalat.powder (Trelegy Ellipta) ipratropium 0.5 mg-albuterol 3 mg 1.5 ml inhalation Q8 H PRN copd 01/21/24 Unknown History (2.5 mg base)/3 mL nebulization soln loratadine 10 mg tablet (Allergy 10 mg PO Q24H PRN all ergy symptoms 01/21/24 Unknown History Relief (loratadine)) omeprazole 20 mg capsule,delayed 20 mg PO DAILY reflux 01/21/24 Unknown History release tamsulosin 0.4 mg capsule 0.4 mg PO DAILY prostate Unknown History amlodipine 2.5 mg tablet (Norvasc) 2.5 mg PO DAILY bp #30 tabs 01/22/24 Unknown Rx diphenhydramine HCl 25 mg capsule 50 mg (2 x 25 mg) PO TID PRN 01/22/24 Unknown Rx allergic reaction #20 caps cyclobenzaprine 10 mg tablet 10 mg PO BID spasm Unknown History dextromethorphan-guaifenesin 30 1 tab PO Q12H PRN coug h #14 tabs 05/18/24 Unknown Rx mg-600 mg tablet extended [id number] hr (Mucus DM) nystatin 100,000 unit/mL oral 500,000 unit (5 mL) PO 4 X/DAY 7 05/18/24 Unknown Rx suspension days #140 mL amoxicillin 875 mg-potassium 1 tab PO BID #10 tabs Unknown Rx clavulanate 125 mg tablet prednisone 20 mg tablet 40 mg (2 x 20 mg) PO DAILY # 10 tabs 05/23/24 Unknown Rx doxycycline hyclate 100 mg capsule 100 mg PO BID 10 da ys #20 caps 05/31/24 Unknown Rx prednisone 50 mg tablet 50 mg PO DAILY 5 days #5 tab s 05/31/24 Unknown Rx ondansetron 4 mg disintegrating 4 mg PO Q8H PRN PRN Na usea #10 tabs 07/05/24 Unknown Rx tablet oxycodone-acetaminophen 5 mg-325 1 tab PO Q6H PRN pain 3 days #12 07/05/24 Unknown Rx mg tablet (Percocet) tabs amoxicillin 875 mg-potassium 875 mg PO Q12H #20 TABLET S 08/18/24 Unknown Rx clavulanate 125 mg tablet tramadol 50 mg tablet 50 mg PO Q6H PRN PRN Pain 3 days 08/18/24 Unknown Rx #12 tabs docusate sodium 100 mg capsule 100 mg PO BID #60 caps 02/01/25 Unknown Rx (Colace) Allergy/AdvReac Type Severity Reaction Status Date / Time lisinopril Allergy Severe Angioedema Verified 06/03/25 22:03 codeine Allergy Mild Itching Verified 06/03/25 22:03 Family History Mother Uterine cancer Father ETOH abuse Surgical History History of testicular surgery History of gastric surgery History of bilateral inguinal hernia repair History of total right hip replacement Social History household members: other details: His daugher and his grandson live with him. Smoking Status: Light Smoker (<10/day) how long ago did patient quit smoking: Patient prior smoked up to 2 ppd, started at age 9, down to 1 pack max/week quit status: considering quitting alcohol intake: former substance use type: former substance user ROS <Dr. Elijah Simpson, DO - Last Filed: 06/04/25 00:29> ROS ED Constitutional Constitutional ED: Reports chills and subjective; Denies fever(s) Eyes Eyes: Denies blurry vision or change in vision ENT ENT ED: Denies rhinorrhea or sore throat Cardiovascular Cardiovascular: Denies chest pain or palpitations Respiratory/Chest Respiratory/Chest: Denies cough or dyspnea Gastrointestinal Gastrointestinal: Reports nausea and vomiting Genitourinary Genitourinary ED: Reports urinary frequency; Denies dysuria or hematuria Musculoskeletal Musculoskeletal: Reports back pain; Denies neck pain Integumentary Reports rash; Denies abscess Neurologic Neurologic: Denies headache(s) or weakness Allergic/Immunologic Allergic/Immunologic ED: Denies mouth swelling or urticaria EXAM <Dr. Elijah Simpson, DO - Last Filed: 06/04/25 00:29> Physical Exam Const Vital Signs: 06/03/25 22:02 06/03/25 22:08 06/03/25 23:01 Temperature 98.2 F 98.2 F Temperature Source Axillary Axillary Pulse Rate 117 H 107 H 85 Respiratory Rate 20 H 20 H 20 H Blood Pressure 164/98 H 179/109 H 157/94 H Blood Pressure Mean 120 132 115 Pulse Ox 98 99 95 Oxygen Delivery Method Nasal Cannula Nasal Cannula Nasal Cannula Oxygen Flow Rate (L/min) 2.5 2.5 2.5 06/03/25 23:08 06/04/25 00:00 06/04/25 01:00 Temperature 98.2 F 98.2 F 98.2 F Temperature Source Oral Oral Oral Pulse Rate 89 87 93 Respiratory Rate 20 H 20 H 20 H Blood Pressure 157/54 H 148/93 H 165/97 H Blood Pressure Mean 88 111 119 Pulse Ox 95 95 98 Oxygen Delivery Method Nasal Cannula Nasal Cannula Nasal Cannula Oxygen Flow Rate (L/min) 2.5 2.5 2.5 06/04/25 02:00 06/04/25 03:00 06/04/25 04:00 Temperature 98.2 F Temperature Source Oral Pulse Rate 99 93 91 Respiratory Rate 20 H 19 H 19 H Blood Pressure 140/103 H 146/86 H 161/99 H Blood Pressure Mean 115 106 119 Pulse Ox 96 97 98 Oxygen Delivery Method Nasal Cannula Nasal Cannula Nasal Cannula Oxygen Flow Rate (L/min) 2.5 2.5 2.5 06/04/25 04:27 Temperature 98 F Temperature Source Pulse Rate 88 Respiratory Rate 19 H Blood Pressure 161/99 H Blood Pressure Mean 119 Pulse Ox 97 Oxygen Delivery Method Oxygen Flow Rate (L/min) Positive well nourished and well developed Constitutional Narrative: BMI is 22.0. General Appearance ED: well developed and NAD HEENT Reports moist mucous membranes Eyes PERRL and EOMs intact bilaterally Eyes Narrative: There is some nystagmus with right lateral gaze. Neck supple and no JVD Resp normal respiratory effort and clear to auscultation bilaterally Cardio regular rate and regular rhythm GI non-tender and non-distended Palpation: soft Neuro oriented x3, CN's II-XII intact bilaterally and no sensory deficits noted Sensorium / Orientation: alert Motor Exam: strength 5/5 throughout Psych mental status grossly normal <Dr. Deanna Gordon, DO - Last Filed: 06/04/25 04:42> Physical Exam Const Vital Signs: 06/03/25 22:02 06/03/25 22:08 06/03/25 23:01 Temperature 98.2 F 98.2 F Temperature Source Axillary Axillary Pulse Rate 117 H 107 H 85 Respiratory Rate 20 H 20 H 20 H Blood Pressure 164/98 H 179/109 H 157/94 H Blood Pressure Mean 120 132 115 Pulse Ox 98 99 95 Oxygen Delivery Method Nasal Cannula Nasal Cannula Nasal Cannula Oxygen Flow Rate (L/min) 2.5 2.5 2.5 06/03/25 23:08 06/04/25 00:00 06/04/25 01:00 Temperature 98.2 F 98.2 F 98.2 F Temperature Source Oral Oral Oral Pulse Rate 89 87 93 Respiratory Rate 20 H 20 H 20 H Blood Pressure 157/54 H 148/93 H 165/97 H Blood Pressure Mean 88 111 119 Pulse Ox 95 95 98 Oxygen Delivery Method Nasal Cannula Nasal Cannula Nasal Cannula Oxygen Flow Rate (L/min) 2.5 2.5 2.5 06/04/25 02:00 06/04/25 03:00 06/04/25 04:00 Temperature 98.2 F Temperature Source Oral Pulse Rate 99 93 91 Respiratory Rate 20 H 19 H 19 H Blood Pressure 140/103 H 146/86 H 161/99 H Blood Pressure Mean 115 106 119 Pulse Ox 96 97 98 Oxygen Delivery Method Nasal Cannula Nasal Cannula Nasal Cannula Oxygen Flow Rate (L/min) 2.5 2.5 2.5 06/04/25 04:27 Temperature 98 F Temperature Source Pulse Rate 88 Respiratory Rate 19 H Blood Pressure 161/99 H Blood Pressure Mean 119 Pulse Ox 97 Oxygen Delivery Method Oxygen Flow Rate (L/min) MDM <Dr. Elijah Simpson, DO - Last Filed: 06/04/25 00:29> [facility] MDM Narrative Medical decision making narrative: Differential diagnosis includes vertigo, labyrinthitis, electrolyte abnormality, dehydration, viral illness, and urinary tract infection. CBC will be obtained to assess for leukocytosis and anemia. Basic metabolic profile will be obtained to assess for electrolyte abnormality and renal function. Urinalysis will be obtained to assess for urinary tract infection and hematuria. CT scan of the brain will be obtained to assess for stroke and intracranial bleeding. History & Record Review Additional record(s) reviewed:: Prior ED visit and Prior labs Lab Data Attestation: I reviewed the patient's lab results. Lab results narrative: CBC was reviewed and was within normal limits. Basic metabolic profile was reviewed and was within normal limits. Labs: Laboratory Results - last 24 hr 06/03/25 06/03/25 22:07 23:54 WBC 6.5 RBC 4.50 L Hgb 14.0 Hct 41.8 MCV 92.9 MCH 31.1 MCHC 33.5 RDW Std Deviation 43.4 RDW Coeff of Brian 12.8 Plt Count 254 MPV 9.7 Immature Gran % (Auto) 0.300 Neut % (Auto) 45.7 L Lymph % (Auto) 29.9 Edgar % (Auto) 14.0 H Eos % (Auto) 9.0 H Baso % (Auto) 1.1 H Absolute Neuts (auto) 3.0 Absolute Lymphs (auto) 1.93 Nucleated RBC % 0 Sodium 145 Potassium 3.6 Chloride 102 Carbon Dioxide 34.2 H Anion Gap 8 BUN 15 Creatinine 0.72 Estim Creat Clear Calc 98.31 Est GFR (MDRD) Non-Af 101 BUN/Creatinine Ratio 21.3 H Glucose 98 Calcium 9.4 Urine Color Yellow Urine Clarity Clear Urine pH 7.0 Ur Specific [place] 1.015 Urine Protein Negative Urine Glucose (UA) Normal Urine Ketones Negative Urine Occult Blood Negative Urine Nitrite Negative Urine Bilirubin Negative Urine Urobilinogen Normal Ur Leukocyte Esterase Negative Urine RBC 0-5 SEEN Urine WBC 0-5 SEEN Ur Squamous Epith Cells 0 SEEN Urine Bacteria 0 SEEN Urine Mucus 0 SEEN Radiography Diagnostic Testing: Clinical Impression(s) from Imaging Studies Brain CT 06/04/25 00:02 IMPRESSION: No intracranial hemorrhage. No mass effect or midline shift. Reading [facility] Treatment and Re-Evaluation :: Patient was given IV fluids and Zofran. Patient was given a dose of Valium. Patient was still feeling dizzy. Patient was able to open his eyes. Patient was given a dose of meclizine. Care of the patient was turned over the oncoming physician pending CT scan and urinalysis. <Dr. Deanna Gordon, DO - Last Filed: 06/04/25 04:42> [facility] Lab Data Labs: Laboratory Results - last 24 hr 06/03/25 06/03/25 22:07 23:54 WBC 6.5 RBC 4.50 L Hgb 14.0 Hct 41.8 MCV 92.9 MCH 31.1 MCHC 33.5 RDW Std Deviation 43.4 RDW Coeff of Brian 12.8 Plt Count 254 MPV 9.7 Immature Gran % (Auto) 0.300 Neut % (Auto) 45.7 L Lymph % (Auto) 29.9 Edgar % (Auto) 14.0 H Eos % (Auto) 9.0 H Baso % (Auto) 1.1 H Absolute Neuts (auto) 3.0 Absolute Lymphs (auto) 1.93 Nucleated RBC % 0 Sodium 145 Potassium 3.6 Chloride 102 Carbon Dioxide 34.2 H Anion Gap 8 BUN 15 Creatinine 0.72 Estim Creat Clear Calc 98.31 Est GFR (MDRD) Non-Af 101 BUN/Creatinine Ratio 21.3 H Glucose 98 Calcium 9.4 Urine Color Yellow Urine Clarity Clear Urine pH 7.0 Ur Specific [place] 1.015 Urine Protein Negative Urine Glucose (UA) Normal Urine Ketones Negative Urine Occult Blood Negative Urine Nitrite Negative Urine Bilirubin Negative Urine Urobilinogen Normal Ur Leukocyte Esterase Negative Urine RBC 0-5 SEEN Urine WBC 0-5 SEEN Ur Squamous Epith Cells 0 SEEN Urine Bacteria 0 SEEN Urine Mucus 0 SEEN Radiography Diagnostic Testing: Clinical Impression(s) from Imaging Studies Brain CT 06/04/25 00:02 IMPRESSION: No intracranial hemorrhage. No mass effect or midline shift. Reading Location: [facility] Treatment and Re-Evaluation :: Patient was given IV fluids and Zofran. Patient was given a dose of Valium. Patient was still feeling dizzy. Patient was able to open his eyes. Patient was given a dose of meclizine. Care of the patient was turned over the oncoming physician pending CT scan and urinalysis. Patient was endorsed to me pending CT head which was unremarkable patient however he is still having dizziness we will redosed him with some more meclizine and reassess him if he is unable to have any improvement then patient will require admission for persistent dizziness [id number]: On reevaluation patient is still having dizziness I had a [id number] conversation with the hospitalist who will admit the patient for intractable dizziness Deanna Gordon DO Discharge Plan Triage Chief Complaint: Nausea/Vomiting Other Complaint: Dizziness ED Provider: Elijah Simpson Dx/Rx/DC Orders Clinical Impression: Dizziness, Prostate cancer, Tobacco use Prescriptions: No Action cyclobenzaprine 10 mg tablet 10 mg PO BID nystatin 100,000 unit/mL Suspension 500,000 unit PO 4X/DAY 7 Days Qty: 140 0RF Mucus DM 30-600 mg tablet extended release 12 hr 1 tab PO Q12H PRN (Reason: cough) Qty: 14 0RF amoxicillin-pot clavulanate 875-125 mg Tablet 1 tab PO BID Qty: 10 0RF prednisone 20 mg tablet 40 mg PO DAILY Qty: 10 0RF ondansetron 4 mg tablet,disintegrating 4 mg PO Q8H PRN PRN (Reason: Nausea) Qty: 10 0RF oxycodone-acetaminophen [Percocet] 5-325 mg tablet 1 tab PO Q6H PRN (Reason: pain) 3 Days Qty: 12 0RF tramadol 50 mg tablet 50 mg PO Q6H PRN PRN (Reason: Pain) 3 Days Qty: 12 0RF amoxicillin-pot clavulanate 875-125 mg tablet 875 mg PO Q12H Qty: 20 0RF docusate sodium [Colace] 100 mg capsule 100 mg PO BID Qty: 60 0RF albuterol sulfate [Ventolin HFA] 90 mcg/actuation HFA aerosol inhaler 1 - 2 puff inhalation Q4H PRN PRN (Reason: Wheezing) Qty: 1 0RF ipratropium-albuterol 0.5 mg-3 mg(2.5 mg base)/3 mL solution for nebulization 1.5 ml inhalation Q8H PRN (Reason: copd) loratadine [Allergy Relief (loratadine)] 10 mg tablet 10 mg PO Q24H PRN (Reason: allergy symptoms) Trelegy Ellipta 100-62.5-25 mcg blister with device 1 ea inhalation DAILY tamsulosin 0.4 mg capsule 0.4 mg PO DAILY omeprazole 20 mg capsule,delayed release(DR/EC) 20 mg PO DAILY diphenhydramine HCl 25 mg capsule 50 mg PO TID PRN (Reason: allergic reaction) Qty: 20 0RF amlodipine [Norvasc] 2.5 mg tablet 2.5 mg PO DAILY Qty: 30 0RF doxycycline hyclate 100 mg capsule 100 mg PO BID 10 Days Qty: 20 0RF prednisone 50 mg tablet 50 mg PO DAILY 5 Days Qty: 5 0RF Primary Care Provider: Iker Blackwell Referrals: Iker Blcakwell MD [Primary Care Provider, Family Practice] Print Language: Maltese
[2025-06-03] MEDS: 0.9% Normal Saline (1000mL) 1,000 ML 1000 ML IV (22:48)
[2025-06-03 22:58] LABS: Hematocrit 41.8 % (40-54); Hemoglobin 14.0 g/dL (13.0-16.5); Immature Granulocytes Count 0.020 X10^3/uL (0.0-0.0); Mean Corp Hgb Conc 33.5 g/dL (32-36); Mean Corpuscular Volume 92.9 fL (80-94); Mean Platelet Vol. 9.7 fl (6.2-12.0); NRBC Flagged by Analyzer 0 % (0-5); Platelet Count 254 K/mm3 (150-450); RBC Distribution Width CV 12.8 % (11.6-14.6); RBC Distribution Width SD 43.4 fl (35.1-43.9); Red Blood Count 4.50 M/mm3 (4.6-6.2); White Blood Count 6.5 K/mm3 (4.4-11.0)
--- OUTSIDE RECORDS SUMMARY | 2025-06-03 23:00 | XMS RPT_ITS | CCD ---
Author Organization [facility] Inform ion Partnership [facility] Care Team Providers Care Dye Winch Operator Name Role Phone No, Physician Unavailable Unavailable Unavailable Primary Care Provider Unavailabl e No, Physician Primary Care Provider Unavailabl e No, Physician Primary Care Provider Unavailabl e García Gunn Primary Care Provider Karma Mark Primary Care Provider [phone] Karma Mark Primary Care Provider [phone] Karma Mark Primary Care Provider Thomas [employer] Primary Care Provide r Thomas [employer] Primary Care Provide r Ivonne Henry MD Primary Care Provider [phone] Ivonne Henry MD Primary Care Provider [phone] Ivonne Henry MD Primary Care Provider [phone] Ivonne Henry MD Primary Care Provider [phone] Iker Blackwell MD Primary Care Provider Dr. Dior Candelaria DO Emergency Provider [phone] Dr. Nicolas Hall DO Admit Provider Dr. Nicolas Hall DO Other Provider Dr. Elijah Guerrero DO Attending Provider Dr. Elijah Guerrero DO Other Provider Dr. Kuanl Stone MD Emergency Provider Dr. Noelle Fleming [...] MD Referring Provider LATISHA WOOTEN Attending Provider LATISHA WOOTEN Referring Provider KVNG ESCOTO Other Provider Genaro BOYER, Dr. Shaver Attending Provider Rosalva BOYER, Iker Primary Care Provider Iker Blackwell MD Attending Provider [phone] Iker Blackwell MD Referring Provider Dr. Werner Hogan DO Emergency Provider [phone] Rosalva BOYER, Iker Primary Care Physician LATISHA WOOTEN Attending Physician KVNG ESCOTO Nurse [...] Consulting Unavailable Mosteller, Nicolas Admitting Unavailable Mosteller, Nicloas Consulting Unavailable Mosteller, Nicolas Attending Unavailable Rosalva, [...] Acetaminophen (9 sources) Acetaminophen Drug Allergy 1 [facility] Opioid Agonists (13 sources) Codeine Drug Allergy 7 Itching, Hives [facility] (20 sources) codeine; Translations: [CODEINE] Drug Allergy 7 Itching, Hives [facility] Work Phone: (20 sources) Acetaminophen; Translations: [ACETAMINOPHEN] Drug Allergy 1 [facility] (20 sources) Ibuprofen; Translations: [IBUPROFEN] Drug Allergy 1 [facility] (13 sources) Lisinopril; Translations: [LISINOPRIL] Drug Allergy [address] [place] [address] Comment on above: per Dr. Hdz (1 source) Codeine Drug Allergy 5 [facility] Repository (1 source) Lisinopril Drug Allergy 5 [facility] Repository Medications Current Medications Medication Drug Class(es) Dates Sig (Normalized) Sig (Original) acetaminophen 325 mg / oxyCODONE hydrochloride 5 mg oral tablet (8 sources) Opioid Agonist Start: 07-05-2024 take 1 tablet by mouth every six hours as needed for pain [id number] 200 actuat albuterol 0.09 mg/actuat metered dose [...] PRN (RT), wheezing, shortness of breath, Starting [facility] 08/09/20 at 0420 Start: 07-25-2020 End: [...] 4 hours scheduled (RT), First dose on [facility] 04/14/20 at 0400 Start: 04-13-2020 End: 04-13-2020 ipratropium-albuteroL (DUO-N EB) 0.5-2.5 mg/3 ml nebulizer solution 3 mL Start: 04-12-2020 End: 04-12-2020 take 3 mL by inhalation every four hours 3 mL, Inhalation, Every 4 hours scheduled (RT), First dose on [facility] 04/12/20 at 0100 Start: 04-11-2020 End: [...] 08/11/2019 08/18/2019 Active take 1 capsule by [facility] every eight hours as needed for [...] 2 times daily PRN, muscle spasms, Starting [facility] 04/14/20 at 0233 Start: 04-12-2020 End: 04-12-2020 take 5 mg by mouth twice daily as needed for muscle spasms 5 mg, Oral, 2 times daily PRN, muscle spasms, Starting [facility] 04/12/20 at 0011 Start: 11-30-2019 End: [...] extended release oral tablet (8 sources) Uncompetitive S-qvmpyc-M-aspartate Receptor Antagonist, Sigma-1 Agonist Start: 05-18-2024 diclofenac [...] (Error) docusate sodium 50 mg / sennosides, senior care 8.6 mg oral tablet (4 sources) Start: [...] times per day . 0 Active nystatin [id number] unt/ml oral suspension (20 sources) Polyene Antifungal Start: 05-18-2024 take [id number] [IU] by mouth four times daily Start: 05-18-2023 End: 10-31-2023 take 10 mL by mouth four times daily Nystatin [id number] UNIT/ML oral suspension Swish and swallow 10 mL 4 times daily. 05/18/2023 Active Start: 12-07-2020 nystatin (MYCO STATIN) 100,000 unit/mL suspension Start: 07-24-2020 End: 08-09-2020 take [id number] [IU] by mouth four times daily nystatin [...] PRN, fever 100.4 F or greater, Starting [facility] 08/09/20 at 0420 Start: 04-14-2020 End: 04-21-2020 take 1 tablet by mouth every four hours as needed 650 mg, Oral, Every 4 hours PRN, mild pain, Starting 04/14/20 at 0231 Start: 04-12-2020 End: 04-12-2020 take 1 tablet by mouth every four hours as needed 650 mg, Oral, Every 4 hours PRN, mild pain, fever 100.4 F or greater, headaches, Starting [facility] 04/12/20 at 0006 Start: 04-11-2020 End: [...] PRN, fever 100.4 F or greater, Starting [facility] 11/02/19 at 1533 Start: 11-02-2019 End: 11-02-2019 [...] Oral, Every 4 hours PRN, indigestion, Starting [facility] 08/09/20 at 0420 Start: 12-14-2017 End: [...] IVPB 3.375 g (premix) polyethylene glycol 3350 56385 mg powder for oral solution (15 sources) [...] PLACED TUBE OR TUBE less than 14 Swazi. To administer dissolved tablet(s) mix with 4 [...] 01-28-2021 End: 01-28-2021 rocuronium (ZEMURON) injection sennosides, senior care 8.6 mg oral tablet (1 source) Start: [...] every hour 100 mL/hr, Intravenous, Continuous, Starting [facility] 08/09/20 at 0515, For 10 hours [...] (Error) Start: 11-21-2020 take 2 tablets by [facility] once daily traZODone (DESYREL) 50 MG tablet Take 100 mg by mouth nightly . 0 11/21/2020 Active Start: 08-09-2020 End: 08-13-2020 take 50 mg by mouth once daily as needed for sleep 50 mg, Oral, Nightly PRN, sleep, Starting [facility] 08/09/20 at 0420 [] May repeat [...] Respiratory failure; insufficiency; arrest (adult) (20 sources) [id number]-io-[id number] respiratory failure; Translations: [Acute and chronic respiratory [...] Patrick 04-13-2025 Course ID [id number] Feb 2025 [facility] Course Intent Curative [facility] Course Start Date [id number] [facility] Elapsed Days 3 [facility] First Treatment Date 04/10/2025 1:23 PM [facility] Fractions Treated to Date 4 [facility] Last Treatment Date 04/13/2025 10:45 AM [facility] Plan Name Prostate [facility] Plan Primary Reference Point Prostate [facility] Prescribed Dose per Fraction (cGy) 250 [facility] Prescription Dose (cGy) 7000 [facility] Reference Point Prostate [facility] h Session Dosage Given (cGy) 250 [facility] Total Dose to Date (cGy) 1000 [facility] Total Fractions Prescribed 28 [facility] Duplex ultrasound of carotid artery reportOrdered By: Elijah Stevens on 03-06-2025 Study report [facility] Cardi[facility] Services [address] [place] [address] Carotid Duplex Ultrasound 03/03/25 1013 MR#: [id number] Acct: [id number] Name: WOLF TURCIOS Jr. Rep #:[id number] : 1960 64 From: Elijah rBewster Attending Dr: Dr. George Amaro MD Status: REG CLI Ordering Dr: George Amaro MD Date: Location: [facility] Sex: M C Admitted: Reason For Study [...] the left vertebral artery. Procedure Carotid Duplex 77393. This is a Carotid Duplex examination using [...] Date Dictated: 03/03/25 1013 Date Transcribed: 03/06/25730 Family Services Manager: Signed [facility] Work Phone: Carotid Duplex Ultrasoundon 03-03-2025 Carotid Duplex Ultrasound [facility] Cardiovascular Services [facility] [place] [address] Carotid Duplex Ultrasound 03/03/25 1013 MR#: [id number] Acct: [id number] Name: WOLF TURCIOS Jr. Rep #: [id number] : 1960 64 From: Elijah Stevens MD [...] the left vertebral artery. Procedure Carotid Duplex 82483. This is a Carotid Duplex examination using [...] Date Dictated: 03/03/25 1013 Date Transcribed: 03/06/25730 Family Services Manager: Signed Normal [facility] Laboratory - Chemistry and C hemistry - challengeon 02-27-2025 Prostate specific Ag [Mass/Vol] 11.5 ng/mL High 0.00 - 0.99 ng/mL [facility] Comment on above: Per the National [...] Interpretation and review of laboratory results Abnormal [facility] Absolute lymphocyte countOrd ered By: Werner Hogan on 02-01-2025 Lymphocytes Auto (Unsp spec) [#/Vol] 1.86 10*3/uL 0.83-4.51 [facility] Absolute neutrophil countOrd ered By: Werner Hogan on 02-01-2025 Neutrophils (Bld) [#/Vol] 6.1 10*3/uL 2.0-7.7 [facility] Activated partial thrombopla stin time (aPTT) in platelet poor plasma by coagulation aOrdered By: Werner Hogan on 02-01-2025 aPTT Coag (PPP) [Time] 28.8 s 24.1-36.2 [facility] Anion gap in Serum or Plasma Ordered By: Werner Hogan on 02-01-2025 Anion gap [Moles/Vol] 9 mmol/L 5-15 [facility] Automated lymphocyte count a s percentage of total leukocytesOrdered By: Werner Hogan on 02-01-2025 Lymphocytes/100 WBC Auto (Unsp spec) 20.2 % - [facility] BUN/creatinine ratioOrdered By: Werner Hogan on 02-01-2025 Urea nitrogen/Creatinine [Mass ratio] 10.6 mg/mg 10- [facility] Basic Metabolic Profile (BMP )on 02-01-2025 BUN/CRE 10.6 RATIO Normal - [facility] Comment on above: Performed By: #### L 500.2500, L300.3900, L100.0100, L300.4310 ####[facility] [address] [place], [address] Calcium [Mass/Vol] 8.8 mg/dL Normal 7.6-11.0 [facility] Comment on above: Performed By: #### L 500.2500, L300.3900, L100.0100, L300.4310 ####[facility] [address] [place], [address] Chloride [Moles/Vol] 102 mmol/L Normal 98-108 [facility] Comment on above: Performed By: #### L 500.2500, L300.3900, L100.0100, L300.4310 ####[facility] [address] [place], [address] CO2 [Moles/Vol] 27.5 mmol/L Normal 21.0-32.0 [facility] Comment on above: Performed By: #### L 500.2500, L300.3900, L100.0100, L300.4310 ####[facility] [address] [place], [address] Creatinine [Mass/Vol] 1.04 mg/dL Normal 0.70-1.20 [facility] Comment on above: Performed By: #### L 500.2500, L300.3900, L100.0100, L300.4310 ####[facility] [address] [place], [address] ECRCL 78.56 ml/min Normal 50-250 [facility] Comment on above: Performed By: #### L 500.2500, L300.3900, L100.0100, L300.4310 ####[facility] [address] [place], [address] GAP 9 Normal 5-15 [facility] Comment on above: Performed By: #### L 500.2500, L300.3900, L100.0100, L300.4310 ####[facility] [address] [place], [address] GFR/1.73 sq M.predicted among non-blacks MDRD (S/P/Bld) [Vol rate/Area] 80 mL/min/{1.73_m2} Normal >60 [facility] Comment on above: Result Comment: mL/m in/1.73m2 CKD-EPI Creatinine Equation (2020) Performed By: #### L 500.2500, L300.3900, L100.0100, L300.4310 ####[facility] [address] [place], [address] Glucose [Mass/Vol] 128 mg/dL High 70-99 [facility] Comment on above: Performed By: #### L 500.2500, L300.3900, L100.0100, L300.4310 ####[facility] [address] [place], [address] Potassium [Moles/Vol] 3.6 mmol/L Normal 3.3-5.1 [facility] Comment on above: Performed By: #### L 500.2500, L300.3900, L100.0100, L300.4310 ####[facility] [address] [place], [address] Sodium [Moles/Vol] 139 mmol/L Normal 133-145 [facility] Comment on above: Performed By: #### L 500.2500, L300.3900, L100.0100, L300.4310 ####[facility] [address] [place], [address] Urea nitrogen [Mass/Vol] 11 mg/dL Normal 4-19 [facility] Comment on above: Performed By: #### L 500.2500, L300.3900, L100.0100, L300.4310 ####[facility] [address] [place], [address] Basophil percentageOrdered B y: Werner Cecy on 02-01-2025 Basophils/100 WBC (Bld) 0.8 % 0-1 [facility] CBC W/Diff, Automatedon 01-07 Absolute Lymph 1.86 X10 3/uL Normal 0.83-4.51 [facility] Comment on above: Performed By: #### L 500.2500, L300.3900, L100.0100, L300.4310 ####[facility] [address] [place], [address] Absolute Neut 6.1 X10 3/uL Normal 2.0-7.7 [facility] Comment on above: Performed By: #### L 500.2500, L300.3900, L100.0100, L300.4310 ####[facility] [address] [place], [address] Basophils/100 WBC (Bld) 0.8 % Normal 0-1 [facility] Comment on above: Performed By: #### L 500.2500, L300.3900, L100.0100, L300.4310 ####[facility] [address] [place], [address] Eosinophils/100 WBC (Bld) 2.8 % Normal 0-5 [facility] Comment on above: Performed By: #### L 500.2500, L300.3900, L100.0100, L300.4310 ####[facility] [address] [place], [address] Erythrocyte distribution width (RBC) [Ratio] 12.9 % Normal 11.6-14.6 [facility] Comment on above: Performed By: #### L 500.2500, L300.3900, L100.0100, L300.4310 ####[facility] [address] [place], [address] Hematocrit (Bld) [Volume fraction] 44.0 % Normal 40-54 [facility] Comment on above: Performed By: #### L 500.2500, L300.3900, L100.0100, L300.4310 ####[facility] [address] [place], [address] Hemoglobin (Bld) [Mass/Vol] 15.0 g/dL Normal 13.0-16.5 [facility] Comment on above: Performed By: #### L 500.2500, L300.3900, L100.0100, L300.4310 ####[facility] [address] [place], [address] IG% 0.300 Normal 0.0-0.9 [facility] Comment on above: Result Comment: IG% - Immature Granulocytes (promyelocytes, myelocytes and metamyelocytes) > 1% indicates that a LEFT SHIFT is Present. Performed By: #### L 500.2500, L300.3900, L100.0100, L300.4310 ####[facility] [address] [place], [address] Lymphocytes/100 WBC (Bld) 20.2 % Normal 19-41 [facility] Comment on above: Performed By: #### L 500.2500, L300.3900, L100.0100, L300.4310 ####[facility] [address] [place], [address] MCH (RBC) [Entitic mass] 31.1 pg Normal 27.0-32.0 [facility] Comment on above: Performed By: #### L 500.2500, L300.3900, L100.0100, L300.4310 ####[facility] [address] [place], [address] MCHC (RBC) [Mass/Vol] 34.1 g/dL Normal 32-36 [facility] Comment on above: Performed By: #### L 500.2500, L300.3900, L100.0100, L300.4310 ####[facility] [address] [place], [address] MCV (RBC) [Entitic vol] 91.3 fL Normal 80-94 [facility] Comment on above: Performed By: #### L 500.2500, L300.3900, L100.0100, L300.4310 ####[facility] [address] [place], [address] Monocytes/100 WBC (Bld) 10.1 % High 0-10 [facility] Comment on above: Performed By: #### L 500.2500, L300.3900, L100.0100, L300.4310 ####[facility] [address] [place], [address] Neutrophils/100 WBC (Bld) 65.8 % Normal 47-70 [facility] Comment on above: Performed By: #### L 500.2500, L300.3900, L100.0100, L300.4310 ####[facility] [address] [place], [address] Nucleated RBC (Bld) [#/Vol] 0 10*3/uL Normal 0-5 [facility] Comment on above: Performed By: #### L 500.2500, L300.3900, L100.0100, L300.4310 ####[facility] [address] [place], [address] Platelet mean volume (Bld) [Entitic vol] 9.6 fL Normal 6.2-12.0 [facility] Comment on above: Performed By: #### L 500.2500, L300.3900, L100.0100, L300.4310 ####[facility] [address] [place], [address] Platelets (Bld) [#/Vol] 241 10*3/uL Normal 150-450 [facility] Comment on above: Performed By: #### L 500.2500, L300.3900, L100.0100, L300.4310 ####[facility] [address] [place], [address] RBC (Bld) [#/Vol] 4.82 10*6/uL Normal 4.6-6.2 [facility] Comment on above: Performed By: #### L 500.2500, L300.3900, L100.0100, L300.4310 ####[facility] [address] [place], [address] RDW SD 42.8 fl Normal 35.1-43.9 [facility] Comment on above: Performed By: #### L 500.2500, L300.3900, L100.0100, L300.4310 ####[facility] [address] [place], [address] WBC (Bld) [#/Vol] 9.2 10*3/uL Normal 4.4-11.0 [facility] Comment on above: Performed By: #### L 500.2500, L300.3900, L100.0100, L300.4310 ####[facility] [address] [place], [address] Carbon dioxide, total [Moles /volume] in Central venous bloodOrdered By: Werner Hogan on 02-01-2025 CO2 [Moles/Vol] 27.5 mmol/L 21.0-32.0 [facility] Chloride assayOrdered By: Jeremy Hogan on 02-01-2025 Chloride [Moles/Vol] 102 mmol/L 98-108 [facility] Emergency Department Summary on 02-01-2025 Emergency Department Summary [facility] Medical Records Department [address] [place] [address] Emergency Department Summary 02/01/25 MR#: [id number] Acct: [id number] Name: WOLF TURCIOS Jr. Rep #: [id number] : 1960 64 From: Werner Patel PCP: Dr. Iker Blackwell MD Status:DEP ER Location: ED HPI History of Present Illness Chief Complaint: Complaint Informant: patient Narrative Narrative: Brought in by EMS from home. Status post prostate biopsy today at [facility] in [place] followed by Dr. Latisha Jha. History of [...] 1 - 2 puff inhalation Q4H PRN TX N 01/02/24 Unknown Rx aerosol inhaler (Ventolin [...] 07/19/23 Unknown Rx mg-600 mg tablet extended rfsoren56 hr (Mucus DM) nystatin 100,000 unit/mL oral [...] frequency Musculoskeletal (more content not included)... Normal [facility] Eosinophil percentageOrdered By: Werner Hogan on 02-01-2025 Eosinophils/100 WBC (Bld) 2.8 % 0-5 [facility] Erythrocyte distribution wid th ratioOrdered By: Werner Hogan on 02-01-2025 Erythrocyte distribution width (RBC) [Ratio] 12.9 % 11.6-14.6 [facility] Erythrocyte distribution wid th standard deviationOrdered By: Werner Hogan on 02-01-2025 Erythrocyte distribution width (RBC) [Ratio] 42.8 fl 35.1-43.9 [facility] Glomerular filtration rate ( GFR) estimation/1.73 sq m using serum, plasma, or whole bOrdered By: Werner Hogan on 02-01-2025 GFR/1.73 sq M.predicted among non-blacks MDRD (S/P/Bld) [Vol rate/Area] 80 mL/min/{1.73_m2} >60 [facility] Comment on above: mL/min/1.73m2 CKD-EP I Creatinine Equation (2020) Hematocrit Auto (Bld) [Volum e fraction]Ordered By: Werner Hogan on 02-01-2025 Hematocrit (Bld) [Volume fraction] 44.0 % 40-54 [facility] Hemoglobin measurementOrdere d By: Werner Hogan on 02-01-2025 Hemoglobin (Bld) [Mass/Vol] 15.0 g/dL 13.0-16.5 [facility] Immature granulocytes/100 WB C Auto (Bld)Ordered By: Werner Hogan on 02-01-2025 Immature granulocytes/100 WBC (Bld) 0.300 % 0.0-0.9 [facility] Comment on above: IG% - Immature Granu locytes (promyelocytes, myelocytes and metamyelocytes) > 1% indicates that a LEFT SHIFT is Present. International normalized rat io (INR) calculationOrdered By: Werner Hogan on 02-01-2025 INR Coag (Bld) [Relative time] 1.0 {INR} [facility] MCV (mean corpuscular volume ) determinationOrdered By: Werner Hogan on 02-01-2025 MCV (RBC) [Entitic vol] 91.3 fL 80-94 [facility] Mean corpuscular hemoglobin (MCH) determinationOrdered By: Werner Hogan 02-01-2025 MCH (RBC) [Entitic mass] 31.1 pg 27.0-32.0 [facility] Mean corpuscular hemoglobin concentration (MCHC) determinationOrdered By: Werner Le on 02-01-2025 MCHC (RBC) [Mass/Vol] 34.1 g/dL 32-36 [facility] Mean platelet volume determi nationOrdered By: Werner Hogan on 02-01-2025 Platelet mean volume (Bld) [Entitic vol] 9.6 fL 6.2-12.0 [facility] Monocyte percentageOrdered B y: Werner Le on 02-01-2025 Monocytes/100 WBC (Bld) 10.1 % High 0-10 [facility] Neutrophil percentageOrdered By: Werner Hogan on 02-01-2025 Neutrophils/100 WBC (Bld) 65.8 % 47-70 [facility] Nucleated red blood cell per centageOrdered By: Werner Hogan on 02-01-2025 Nucleated RBC/100 WBC (Bld) [Ratio] 0 % 0-5 [facility] Partial Thromboplast Timeon 02-01-2025 aPTT Coag (Bld) [Time] 28.8 s Normal 24.1-36.2 [facility] Comment on above: Performed By: #### L 500.2500, L300.3900, L100.0100, L300.4310 ####[facility] [address] [facility] [place], [place], [id number] Platelet countOrdered By: Jeremy Hogan on 02-01-2025 Platelets (Bld) [#/Vol] 241 10*3/uL 150-450 [facility] Potassium measurement (mass/ volume)Ordered By: Werner Hogan on 02-01-2025 Potassium (Unsp spec) [Mass/Vol] 3.6 mmol/L 3.3-5.1 [facility] Prothrombin Time w/INRon INR Coag (PPP) [Relative time] 1.0 {INR} Normal [facility] Comment on above: Performed By: #### L 500.2500, L300.3900, L100.0100, L300.4310 ####[facility] [address] [place], [address] PT Coag (PPP) [Time] 13.8 s Normal 11.7-14.9 [facility] Comment on above: Performed By: #### L 500.2500, L300.3900, L100.0100, L300.4310 ####[facility] [address] [place], [address] Prothrombin timeOrdered By: Werner Hogan on 02-01-2025 PT Coag (PPP) [Time] 13.8 s 11.7-14.9 [facility] RBC Auto (Bld) [#/Vol]Ordere d By: Werner Hogan on 02-01-2025 RBC (Bld) [#/Vol] 4.82 10*6/uL 4.6-6.2 [facility] Serum creatinine measurement (mass/volume)Ordered By: Werner Hogan on 02-01-2025 Creatinine [Mass/Vol] 1.04 mg/dL 0.70-1.20 [facility] Serum glucose measurement (m ass/volume)Ordered By: Werner Hogan on 02-01-2025 Glucose [Mass/Vol] 128 mg/dL High 70-99 [facility] Serum or plasma calcium margie urement (mass/volume)Ordered By: Werner Hogan on 02-01-2025 Calcium [Mass/Vol] 8.8 mg/dL 7.6-11.0 [facility] Serum or plasma urea nitroge n measurement (mass/volume)Ordered By: Werner Hogan on 02-01-2025 Urea nitrogen [Mass/Vol] 11 mg/dL 4-19 [facility] Sodium levelOrdered By: Werner Hogan on 02-01-2025 Sodium [Moles/Vol] 139 mmol/L 133-145 [facility] TISSUE EXAMon 02-01-2025 TISSUE EXAM Prostate Biopsy 14-1 6 sites Surgical Pathology Report Case: [id number] Authorizing Provider: Elijah Sanchez, Collected: 02/01/2025 11:33 AM Ordering Location: [facility] Received: 02/01/2025 08:42 PM Urology Pathologist: Tameka Balderrama MD Specimen: Prostate, Needle Biopsy, Please Specify, ERICH #1 Prostate, needle core biopsy: Prostatic adenocarcinoma, [place]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 45% [place] pattern 4. Cribriform growth pattern identified. at 0856 EDT Elevated PSA. Received in formalin labeled Karolina Wolf Vazquez and designated ERICH #1 are six cores, ranging from 0.8 to 1.9 cm. Cassette Summary: A1-A3-two cores each All M/3 VS/XJS/gld Gross examination performed at: [facility] - [address] [place] [address] Microscopic examination is performed. Normal [facility] Comment on above: Performed By: #### 4 [id number] #### [facility] [address] [place] [address] Kvng William M.D. [id number] US Guidance for percutaneous biopsy of Prostateon 02-01-2025 Findings: SCOTT demonstrates cT1c mobile gland. US with normal margins. SV normal. Bladder neck normal. No median lobe. Vol 29 cm3 BALALIKEA [facility] Radiology Study observation (narrative) [facility] US PROSTATE BIOPSYon 025 US PROSTATE BIOPSY Findings: SCOTT demonstrates cT1c mobile gland. US with normal margins. SV normal. Bladder neck normal. No median lobe. Vol 29 cm3 Dictated by: ELIJAH SANCHEZ on ThuFeb 01, 2025 11:49:39 AM EDT Transcribed by: ELIJAH SANCHEZ on ThuFeb 01, 2025 11:49:39 AM EDT Finalized by: ELIJAH SANCHEZ on ThuFeb 01, 2025 11:49:39 AM EDT Normal [facility] Comment on above: Order Comment: This back office order was created through the Ultrasound Visit Navigator section. White blood cell (WBC) count Ordered By: Werner Hogan on 02-01-2025 WBC (Bld) [#/Vol] 9.2 10*3/uL 4.4-11.0 [facility] MR PROSTATE WITH AND WITHOUT CONTRASTon 01-02-2025 MR PROSTATE WITH AND WITHOUT CONTRAST EXAMINATION: MRI OF THE PROSTATE WITH AND WITHOUT CONTRAST 01/09/2022 TECHNIQUE: Multiplanar multisequence MRI of the prostate was performed without and with the administration of 15 mL Dotarem intravenous contrast. Multiparametric imaging with dynamic contrast enhanced imaging and diffusion weighted imaging was performed. Ahalogy was utilized in analysis of images. COMPARISON: [...] on ThuJan 05, 2025 11:39:44 AM EDT [facility] Comment on above: Order Comment: Injur y/Trauma or Illness?:Illness/Other How long have you had these symptoms (acute/chronic)?:Unknown Reason for exam?:Elevated PSA Type of Exam?:Initial Additional signs and symptoms?:Elevated PSA Echocardiogram study reportO rdered By: Chhaya Lam on 11-26-2024 Study report [facility] Cardiovascular Services [address] [place] [address] Echo Complete 11/25/24 1414 MR#: [id number] Acct: [id number] Name: WOLF TURCIOS Jr. Rep #:[id number] : 1960 64 From: Chhaya hernandez MD Attending Dr: Dr. Iker Blackwell MD S tatus: REG CLI Ordering Dr: Iker Blackwell MD Date: Location: [facility] Sex: M C Admitted: Reason For Study [...] Dictated: 11/25/24 141 Date Transcribed: 11/26/24 1640 Family Services Manager: Signed [facility] Work Phone: Echo Completeon 11-25-2024 Echo Complete [facility] Cardiovascular Services [address] [place] [address] Echo Complete 11/25/24 141 MR#: [id number] Acct: [id number] Name: WOLF TURCIOS Rep #: [id number] : 1960 64 From: Chhaya Lam MD Attending Dr: Dr. Iker Blackwell MD Status: REG C Ordering Dr: Iker Blackwell MD Date: 11/25/24 Location: [facility] Sex: M C Admitted: Reason For Study [...] Dictated: 11/25/24 1414 Date Transcribed: 11/26/24 1640 Family Services Manager: Signed Normal [facility] PSA Total+%Freeon 11-24-2024 PSA, FREE 1.02 ng/mL Normal N/A [facility] Comment on above: Result Comment: Roch e ECLIA methodology. Performed By: #### L 3110.0500 #### [facility] Laboratory [address] [place], [address] PSA, FREE % 11.6 Normal . [facility] Comment on above: Result Comment: The table [...] any other population of men. Performed at: [facility] [address] [place] [id number] [employer] Superintendent: Stewart Garzon PhD, Phone: [phone] Performed By: #### L 3110.0500 #### [facility] Laboratory [address] [place], [address] PSA, TOTAL ULTR 8.800 ng/mL Abnormal 0.000-4.000 [facility] Comment on above: Result Comment: Roch e ECLIA methodology. According to the [place] [employer], Serum PSA should decrease and [...] disease. Performed By: #### L 3110.0500 #### [facility] [address] [place], [address] Serum or plasma free prostat e specific antigen (PSA)/total PSA mass ratioon 11-23-2024 Free PSA/Total PSA [Mass fraction] 11.6 % . [facility] Comment on above: The table below list [...] for any other population of men.Performed at: [facility] [address] [id number] Director: Stewart Garzon PhD, Phone: [phone] Measure post void residualon 10-28-2024 Measure Post Void Residual 125ml [facility] POC Urinalysis Dipstick, Aut oon 10-28-2024 Bilirubin Ql (U) Negative Negative [facility] Glucose Ql (U) Negative Normal, Negative mg/dL [facility] Hemoglobin Ql (U) Negative Negative [facility] Ketones Ql (U) Negative Negative mg/dL [facility] Leukocyte esterase Test strip Ql (U) Negative Negative [facility] Nitrite Ql (U) Negative Negative [facility] pH (U) 5.5 [pH] 5.0 - 7.0 [facility] Protein Ql (U) Negative Negative mg/dL [facility] Specific gravity (U) [Rel density] 1.01 1.005 - 1.025 [facility] Urobilinogen Qn (U) 0.2 mg/dL <2.0, 0. 2, Normal, Negative, 1.0, 2.0, <1.0 [facility] Testicular with Arterial Demetrio won 09-21-2024 Testicular with Arterial Flow [facility] Imaging Services [address] [place], [place] [address] Testicular with Arterial Flow MR#: [id number] Acct: [id number] Name: WOLF TURCIOS Jr. Rep #: [id number] : 1960 M 64 From: Teresa Mc MD PCP: Dr. Iker Blackwell MD Status: REG CLI Study: Testicular with Arterial Flow Date of Exam: Exam# [id number] Ordering Dr: Iker Blackwell MD PROCEDURE: TESTICULAR [...] bilateral arterial and venous flow seen. Bilateral wqjv-fc-pxaaoviv appearing hydroceles are noted measuring approximately 4.3 x 5.3 x 2 cm on the right and 5.3 x 3.3 x 2.7 cm on the left. US/Testicular with Arterial Flow IMPRESSION: The testicles appear symmetric and isoechoic with bilateral arterial and venous flow seen. Bilateral bhal-rm-pyxjtbyl appearing hydroceles are noted measuring approximately 4.3 x 5.3 x 2 cm on the right and 5.3 x 3.3 x 2.7 cm on the left. Reading Location: [facility] CC: Dr. Iker Blackwell MD Family Services Manager: Signed Normal [facility] Emergency Department Summary on 08-18-2024 Emergency Department Summary [facility] Medical Records Department [address] [place] [address] Emergency Department Summary 08/18/24 MR#: [id number] Acct: [id number] Name: WOLF TURCIOS Jr. Rep #: [id number] : 1960 64 From: Elijah Simpson DO [...] 1 - 2 puff inhalation Q4H PRN TX N 01/02/24 Unknown Rx aerosol inhaler (Ventolin [...] 07/19/23 Unknown Rx mg-600 mg tablet extended cgtqlra12 hr (Mucus DM) nystatin 100,000 unit/mL oral [...] Verified 08/18 (more content not included)... Normal [facility] Cardiovascular stress test r eportOrdered By: Eron Enrique on 08-10-2024 Study report [facility] Cardiovascular Services [address] [place] [address] MR#: [id number] Acct: [id number] Name: WOLF TURCIOS Jr. Rep #: [id number] : 1960 64 From: Eron Enrique MD Primary Care: Dr. Iker Blackwell MD Status: REG [facility] Referring Dr: Iker Blackwell MD Sex: M [...] of 52%. This note was generated with [employer] software. It may contain incorrectwords, spelling, and punctuation that were not noted in checking the note beforesigning. 08/10/2446 Date _ Eron Enrique MD CC: Dr. Iker Blackwell MD ~ Date Dictated: 08/10/24943 Date Transcribed: 08/10/24943 Family Services Manager: TRUMAN Mata [facility] Work Phone: Stress Reporton 08-10-2024 Stress Report [facility] Cardiovascular Services [address] [place], [place] [address] MR#: [id number] Acct: [id number] Name: WOLF TURCIOS Jr. Rep #: [id number] : 1960 64 From: Eron Enrique MD [...] of 52%. This note was generated with [employer] software. It may contain incorrect words, spelling, and punctuation that were not noted in checking the note before signing. 08/10/2446 Date Eron Enrique MD CC: Dr. Iker Blackwell MD Date Dictated: 08/10/24943 Date Transcribed: 08/10/24943 Family Services Manager: TRUMAN Signed Normal [facility] Electrocardiogram reportOrde red By: Jihan Daly on 08-03-2024 EKG study [facility] Cardiovascular Services [address] [place] [address] 12 Lead EKG 08/02/24 1026 MR#: [id number] Acct: [id number] Name: WOLF TURCIOS Jr. Rep #:[id number] : 1960 64 From: Jihan solitario MD [...] undetermined Abnormal ECG Confirmed by Jihan Daly ([id number]), food expeditor YENNY NUNEZ ([id number]) on 56:04:39 AM Referred By: Iker Blackwell Confirmed By: Jihan Daly 08/03/24 0604 Date _ Jihan Daly MD CC: Dr. Iker Blackwell MD ~ Signed [facility] Work Phone: 12 Lead EKGon 08-02-2024 12 Lead EKG [facility] Cardiovascular Services [address] [place] [address] 12 Lead EKG 08/02/24 1026 MR#: [id number] Acct: [id number] Name: WOLF TURCIOS JrFlorence Rep #: [id number] : 1960 64 From: Jihan Daly MD [...] undetermined Abnormal ECG Confirmed by Jihan Daly ([id number]), food expeditor YENNY NUNEZ ([id number]) on 08/03/2024 6:04:39 AM Referred By: Iker Blackwell Confirmed By: Jihan Daly 08/03/24 0604 Date Jihan Daly MD CC: Dr. Iker Blackwell MD Signed Normal [facility] Chest PA and Lateralon 07-21 Chest PA and Lateral [facility] Imaging Services [address] [place] [address] Chest PA and Lateral MR#: [id number] Acct: [id number] Name: WOLF TURCIOS Jr. Rep #: [id number] : 1960 M 64 From: Washington Hogan MD PCP: Dr. Iker Blackwell MD Status: REG CLI Study: Chest PA and Lateral Date of Exam: 07/21/24 Exam# [id number] Ordering Dr: Iker Blackwell MD EXAM: XR [...] Lateral IMPRESSION: Suggestion of COPD. Reading Location: [facility] CC: Dr. Iker Blackwell MD Family Services Manager: Signed Normal [facility] Abdomen/Pelvis W IV Cont ONL Yon 07-05-2024 Abdomen/Pelvis W IV Cont ONLY [facility] Imaging Services [address] [place] [address] Abdomen/Pelvis W IV Cont ONLY MR#: [id number] Acct: [id number] Name: WOLF TURCIOS Jr. Rep #: [id number] : 1960 M 64 From: Lawanda Cui MD PCP: Dr. Iker Blackwell MD Status: REG ER Study: Abdomen/Pelvis W IV Cont ONLY Date of Exam: Exam# [id number] Ordering Dr: Dale Galdamez DO [id number] STUDY: CT ABDOMEN AND PELVIS WITH CONTRAST [...] Dale Galdamez DO; Dr. Iker Blackwell MD Family Services Manager: Signed Normal [facility] Absolute neutrophil countOrd ered By: Dale Galdamez on 07-05-2024 Neutrophils (Bld) [#/Vol] 3.7 10*3/uL 2.0-7.7 [facility] Albumin to globulin ratioOrd ered By: Dale Galdamez on 07-05-2024 Albumin/Globulin [Mass ratio] 1.0 {ratio} 0.9-2.4 [facility] Basophil percentageOrdered B y: Dale Galdamez on 07-05-2024 Basophils/100 WBC (Bld) 1.2 % High 0-1 [facility] Bilirubin Test strip Ql (U)O rdered By: Dale Galdamez on 07-05-2024 Bilirubin Ql (U) Negative Negative [facility] Bilirubin, totalOrdered By: Dale Galdamez on 07-05-2024 Bilirubin [Mass/Vol] 0.50 mg/dL 0.20-1.00 [facility] Comment on above: For patients on eltr ombopag therapy, use of Dimension [place] TBIL is not recommended. Blood urea nitrogen (BUN)/cr eatinine ratioOrdered By: Dale Galdamez on 07-05-2024 Urea nitrogen/Creatinine [Mass ratio] 11.4 mg/mg 10-20 [facility] CBC W/Diff, Automatedon 06-09 Absolute Lymph 1.75 X10 3/uL Normal 0.83-4.51 [facility] Comment on above: Performed By: #### L 501.2450, L100.0100, L500.4050, L503.6005 ####[facility] [address] [place], [address] Absolute Neut 3.7 X10 3/uL Normal 2.0-7.7 [facility] Comment on above: Performed By: #### L 501.2450, L100.0100, L500.4050, L503.6005 ####[facility] [address] [place], [address] Basophils/100 WBC (Bld) 1.2 % High 0-1 [facility] Comment on above: Performed By: #### L 501.2450, L100.0100, L500.4050, L503.6005 ####[facility] [address] [place], [address] Eosinophils/100 WBC (Bld) 5.1 % High 0-5 [facility] Comment on above: Performed By: #### L 501.2450, L100.0100, L500.4050, L503.6005 ####[facility] [address] [place], [address] Erythrocyte distribution width (RBC) [Ratio] 13.2 % Normal 11.6-14.6 [facility] Comment on above: Performed By: #### L 501.2450, L100.0100, L500.4050, L503.6005 ####[facility] [address] [place], [address] Hematocrit (Bld) [Volume fraction] 46.7 % Normal 40-54 [facility] Comment on above: Performed By: #### L 501.2450, L100.0100, L500.4050, L503.6005 ####[facility] [address] [place], [address] Hemoglobin (Bld) [Mass/Vol] 15.8 g/dL Normal 13.0-16.5 [facility] Comment on above: Performed By: #### L 501.2450, L100.0100, L500.4050, L503.6005 ####[facility] [address] [place], [address] IG% 0.300 Normal 0.0-0.9 [facility] Comment on above: Result Comment: IG% - Immature Granulocytes (promyelocytes, myelocytes and metamyelocytes) > 1% indicates that a LEFT SHIFT is Present. Performed By: #### L 501.2450, L100.0100, L500.4050, L503.6005 ####[facility] [address] [place], [address] Lymphocytes/100 WBC (Bld) 26.8 % Normal 19-41 [facility] Comment on above: Performed By: #### L 501.2450, L100.0100, L500.4050, L503.6005 ####[facility] [address] [place], [address] MCH (RBC) [Entitic mass] 31.3 pg Normal 27.0-32.0 [facility] Comment on above: Performed By: #### L 501.2450, L100.0100, L500.4050, L503.6005 ####[facility] [address] [place], [address] MCHC (RBC) [Mass/Vol] 33.8 g/dL Normal 32-36 [facility] Comment on above: Performed By: #### L 501.2450, L100.0100, L500.4050, L503.6005 ####[facility] [address] [place], [address] MCV (RBC) [Entitic vol] 92.5 fL Normal 80-94 [facility] Comment on above: Performed By: #### L 501.2450, L100.0100, L500.4050, L503.6005 ####[facility] [address] [place], [address] Monocytes/100 WBC (Bld) 10.3 % High 0-10 [facility] Comment on above: Performed By: #### L 501.2450, L100.0100, L500.4050, L503.6005 ####[facility] [address] [place], [address] Neutrophils/100 WBC (Bld) 56.3 % Normal 47-70 [facility] Comment on above: Performed By: #### L 501.2450, L100.0100, L500.4050, L503.6005 ####[facility] [address] [place], [address] Nucleated RBC (Bld) [#/Vol] 0 10*3/uL Normal 0-5 [facility] Comment on above: Performed By: #### L 501.2450, L100.0100, L500.4050, L503.6005 ####[facility] [address] [place], [address] Platelet mean volume (Bld) [Entitic vol] 9.7 fL Normal 6.2-12.0 [facility] Comment on above: Performed By: #### L 501.2450, L100.0100, L500.4050, L503.6005 ####[facility] [address] [place], [address] Platelets (Bld) [#/Vol] 266 10*3/uL Normal 150-450 [facility] Comment on above: Performed By: #### L 501.2450, L100.0100, L500.4050, L503.6005 ####[facility] [address] [place], [address] RBC (Bld) [#/Vol] 5.05 10*6/uL Normal 4.6-6.2 [facility] Comment on above: Performed By: #### L 501.2450, L100.0100, L500.4050, L503.6005 ####[facility] [address] [place], [address] RDW SD 44.9 fl High 35.1-43.9 [facility] Comment on above: Performed By: #### L 501.2450, L100.0100, L500.4050, L503.6005 ####[facility] [address] [place], [address] WBC (Bld) [#/Vol] 6.5 10*3/uL Normal 4.4-11.0 [facility] Comment on above: Performed By: #### L 501.2450, L100.0100, L500.4050, L503.6005 ####[facility] [address] [place], [address] Carbon dioxide measurementOr dered By: Dale Galdamez on 07-05-2024 CO2 [Moles/Vol] 30.0 mmol/L 21.0-32.0 [facility] Chloride measurementOrdered By: Dale Galdamez on 07-05-2024 Chloride [Moles/Vol] 107 mmol/L 98-107 [facility] Comprehensive Metabolic Prof ilon 07-05-2024 Albumin [Mass/Vol] 3.5 g/dL Normal 3.2-5.0 [facility] Comment on above: Performed By: #### L 501.2450, L100.0100, L500.4050, L503.6005 ####[facility] [address] [place], [address] Albumin/Globulin [Mass ratio] 1.0 {ratio} Normal 0.9-2.4 [facility] Comment on above: Performed By: #### L 501.2450, L100.0100, L500.4050, L503.6005 ####[facility] [address] [place], [address] ALK P 91 U/L Normal 45-117 [facility] Comment on above: Performed By: #### L 501.2450, L100.0100, L500.4050, L503.6005 ####[facility] [address] [place], [address] ALT [Catalytic activity/Vol] 27 U/L Normal 16-61 [facility] Comment on above: Performed By: #### L 501.2450, L100.0100, L500.4050, L503.6005 ####[facility] [address] [place], [address] AST [Catalytic activity/Vol] 24 U/L Normal 15-37 [facility] Comment on above: Result Comment: Slig ht Hemolysis, Result may be falsely increased. Performed By: #### L 501.2450, L100.0100, L500.4050, L503.6005 ####[facility] [address] [place], [address] Bilirubin [Mass/Vol] 0.50 mg/dL Normal 0.20-1.00 [facility] Comment on above: Result Comment: For patients on eltrombopag therapy, use of Dimension [place] TBIL is not recommended. Performed By: #### L 501.2450, L100.0100, L500.4050, L503.6005 ####[facility] [address] [place], [address] BUN/CRE 11.4 RATIO Normal 10-20 [facility] Comment on above: Performed By: #### L 501.2450, L100.0100, L500.4050, L503.6005 ####[facility] [address] [place], [address] CA,Total 9.1 mg/dL Normal 8.5-10.1 [facility] Comment on above: Performed By: #### L 501.2450, L100.0100, L500.4050, L503.6005 ####[facility] [address] [place], [address] Chloride [Moles/Vol] 107 mmol/L Normal 98-107 [facility] Comment on above: Performed By: #### L 501.2450, L100.0100, L500.4050, L503.6005 ####[facility] [address] [place], [address] CO2 [Moles/Vol] 30.0 mmol/L Normal 21.0-32.0 [facility] Comment on above: Performed By: #### L 501.2450, L100.0100, L500.4050, L503.6005 ####[facility] [address] [place], [address] Creatinine [Mass/Vol] 0.96 mg/dL Normal 0.70-1.30 [facility] Comment on above: Result Comment: The validity of the calculated GFR GFRAA in patients over 70 years has not been determined. Clinical correlation is essential. Performed By: #### L 501.2450, L100.0100, L500.4050, L503.6005 ####[facility] [address] [place], [address] ECRCL 83.02 ml/min Normal [facility] Comment on above: Performed By: #### L 501.2450, L100.0100, L500.4050, L503.6005 ####[facility] [address] [place], [address] EST GFR - AA 101 mL/min Normal >60 [facility] Comment on above: Result Comment: Afri can Chilean GFR Calc Performed By: #### L 501.2450, L100.0100, L500.4050, L503.6005 ####[facility] [address] [place], [address] GAP 4 Low 5-15 [facility] Comment on above: Performed By: #### L 501.2450, L100.0100, L500.4050, L503.6005 ####[facility] [address] [place], [address] GFR/1.73 sq M.predicted among non-blacks MDRD (S/P/Bld) [Vol rate/Area] 84 mL/min/{1.73_m2} Normal >60 [facility] Comment on above: Result Comment: Non- GFR Calc Performed By: #### L 501.2450, L100.0100, L500.4050, L503.6005 ####[facility] [address] [place], [address] Globulin (S) [Mass/Vol] 3.6 g/dL Normal 2.2-4.2 [facility] Comment on above: Performed By: #### L 501.2450, L100.0100, L500.4050, L503.6005 ####[facility] [address] [place], [address] Glucose [Mass/Vol] 105 mg/dL Normal 74-106 [facility] Comment on above: Result Comment: Fast ing Glucose result from 100 to 125 mg/dL suggests IMPAIRED HOMEOSTASIS per A.D.A. criteria. Performed By: #### L 501.2450, L100.0100, L500.4050, L503.6005 ####[facility] [address] [place], [address] Potassium [Moles/Vol] 4.1 mmol/L Normal 3.5-5.1 [facility] Comment on above: Result Comment: Slig ht Hemolysis, Result may be falsely increased. Performed By: #### L 501.2450, L100.0100, L500.4050, L503.6005 ####[facility] [address] [place], [address] Sodium [Moles/Vol] 142 mmol/L Normal 136-145 [facility] Comment on above: Performed By: #### L 501.2450, L100.0100, L500.4050, L503.6005 ####[facility] [address] [place], [address] T PROT 7.1 g/dL Normal 6.4-8.2 [facility] Comment on above: Performed By: #### L 501.2450, L100.0100, L500.4050, L503.6005 ####[facility] [address] [place], [address] Urea nitrogen [Mass/Vol] 11 mg/dL Normal 7-18 [facility] Comment on above: Performed By: #### L 501.2450, L100.0100, L500.4050, L503.6005 ####[facility] [address] [place], [address] Emergency Department Summary on 07-05-2024 Emergency Department Summary [facility] Medical Records Department [address] [place] [address] Emergency Department Summary 07/05/24 MR#: [id number] Acct: [id number] Name: WOLF TURCIOS Rep #: [id number] : 1960 64 From: Dale Galdamez DO [...] intact Psych: Cooperative, appropriate mood and affect [facility] Medical History History of substance use History [...] 05/18/24 Unknown Rx mg-600 mg tablet extended ewfiqgr87 hr (Mucus DM) nystatin 100,000 unit/mL oral [...] 07:20 0 (more content not included)... Normal [facility] Eosinophil percentageOrdered By: Dale Galdamez on 07-05-2024 Eosinophils/100 WBC (Bld) 5.1 % High 0-5 [facility] Epithelial cells.squamous LM Ql (Urine sed)Ordered By: Dale Galdamez on 07-05-2024 Epithelial cells.squamous LM.HPF (Urine sed) [#/Area] 0 /[HPF] 0-5 [facility] Erythrocyte distribution wid th ratioOrdered By: Dale Galdamez on 07-05-2024 Erythrocyte distribution width (RBC) [Ratio] 13.2 % 11.6-14.6 [facility] Erythrocyte distribution wid th standard deviationOrdered By: Dale Hoffman on 07-05-2024 Erythrocyte distribution width (RBC) [Entitic vol] 44.9 fL High 35.1-43.9 [facility] Estimated glomerular filtrat ion rate (GFR) AmericanOrdered By: Dale Galdamez on 07-05-2024 Estimated GFR (MDRD) Amer 101 mL/min >60 [facility] Comment on above: GFR Calc Estimation of creatinine kehinde aranceOrdered By: Dale Galdamez on 07-05-2024 Estimated Creatinine Clearance Calc 83.02 ml/min [facility] Glomerular filtration rate ( GFR) estimationOrdered By: Dale Galdamez on 07-05-2024 Estimated GFR (MDRD) Non-Af Amer 84 mL/min >60 [facility] Comment on above: Non- GFR Calc Glucose Ql (U)Ordered By: Truman Galdamez on 07-05-2024 Urine Glucose (UA) Normal mg/dl Normal [facility] Glucose measurementOrdered B y: Dale Galdamez on 07-05-2024 Glucose [Mass/Vol] 105 mg/dL 74-106 [facility] Comment on above: Fasting Glucose resu lt from 100 to 125 mg/dL suggests IMPAIRED HOMEOSTASIS per A.D.A. criteria. Hematocrit Auto (Bld) [Volum e fraction]Ordered By: Dale Galdamez on 07-05-2024 Hematocrit (Bld) [Volume fraction] 46.7 % 40-54 [facility] Hemoglobin measurementOrdere d By: Dale Galdamez on 07-05-2024 Hemoglobin (Bld) [Mass/Vol] 15.8 g/dL 13.0-16.5 [facility] Immature granulocytes/100 WB C Auto (Bld)Ordered By: Dalelinwood Galdamez on 07-05-2024 Immature granulocytes/100 WBC (Bld) 0.300 % 0.0-0.9 [facility] Comment on above: IG% - Immature Granu locytes (promyelocytes, myelocytes and metamyelocytes) > 1% indicates that a LEFT SHIFT is Present. Ketones Test strip Ql (U)Ord ered By: Dale Galdamez on 07-05-2024 Ketones Ql (U) Negative Negative [facility] Laboratory - Chemistry and C hemistry - challengeOrdered By: Dale Galdamez on 07-05-2024 AST [Catalytic activity/Vol] 24 U/L 15-37 [facility] Comment on above: Slight Hemolysis, Re sult may be falsely increased. Lactic Acidon 07-05-2024 Lactate [Moles/Vol] 1.4 mmol/L Normal 0.4-1.9 [facility] Comment on above: Order Comment: Y Performed By: #### L 501.2450, L100.0100, L500.4050, L503.6005 ####[facility] [address] [place], [place], [id number] Lactic acid measurementOrder ed By: Dale Galdamez on 07-05-2024 Lactate [Moles/Vol] 1.4 mmol/L 0.4-2.0 [facility] Lipaseon 07-05-2024 Lipase [Catalytic activity/Vol] 19 U/L Normal 13-75 [facility] Comment on above: Result Comment: Elva acosta note: LIPASE revised reference range effective 22. New Lipase methodology. Expected to produce lower values than the previous assay method. NEW Reference Range: 13 - 75 U/L Performed By: #### L 501.2450, L100.0100, L500.4050, L503.6005 ####[facility] [address] [place], [address] Lipase measurementOrdered By : Dale Galdamez on 07-05-2024 Lipase [Catalytic activity/Vol] 19 U/L 13-75 [facility] Comment on above: Please note:LIPASE r evised reference range effective 22. New Lipase methodology. Expected to produce lower values than the previous assay method. NEW Reference Range: 13 - 75 U/L Lymphocytes Auto (Unsp spec) [#/Vol]Ordered By: Dale Galdamez on 07-05-2024 Lymphocytes (Bld) [#/Vol] 1.75 10*3/uL 0.83-4.51 [facility] Lymphocytes/100 WBC Auto (Un sp spec)Ordered By: Dale Galdamez on 07-05-2024 Lymphocytes/100 WBC (Bld) 26.8 % 19-41 [facility] MCV (mean corpuscular volume ) determinationOrdered By: Dale Galdamez on 07-05-2024 MCV (RBC) [Entitic vol] 92.5 fL 80-94 [facility] Mean corpuscular hemoglobin (MCH) determinationOrdered By: [place] Denice on 07-05-2024 MCH (RBC) [Entitic mass] 31.3 pg 27.0-32.0 [facility] Mean corpuscular hemoglobin concentration (MCHC) determinationOrdered By: [place] Galdamez on 07-05-2024 MCHC (RBC) [Mass/Vol] 33.8 g/dL 32-36 [facility] Mean platelet volume determi nationOrdered By: Dale Galdamez on 07-05-2024 Platelet mean volume (Bld) [Entitic vol] 9.7 fL 6.2-12.0 [facility] Microscopic analysis of urin e for red blood cells (RBC)Ordered By: Dale Galdamez on 07-05-2024 Urine RBC 10-25 SEEN /hpf 0-5 [facility] Monocyte percentageOrdered B y: Dale Galdamez on 07-05-2024 Monocytes/100 WBC (Bld) 10.3 % High 0-10 [facility] Mucus LM Ql (Urine sed)Order ed By: Dale Galdamez on 07-05-2024 Mucus Ql (Urine sed) 0 SEEN /hpf [facility] Neutrophil percentageOrdered By: Dale Galdamez on 07-05-2024 Neutrophils/100 WBC (Bld) 56.3 % 47-70 [facility] Nitrite Test strip Ql (U)Ord ered By: Dale Galdamez on 07-05-2024 Nitrite Ql (U) Negative Negative [facility] Nucleated red blood cell per centageOrdered By: Dale Galdamez on 07-05-2024 Nucleated RBC/100 WBC (Bld) [Ratio] 0 % 0-5 [facility] Platelet countOrdered By: Truman Galdamez on 07-05-2024 Platelets (Bld) [#/Vol] 266 10*3/uL 150-450 [facility] Potassium measurementOrdered By: Dale Galdamez on 07-05-2024 Potassium [Moles/Vol] 4.1 mmol/L 3.5-5.1 [facility] Comment on above: Slight Hemolysis, Re sult may be falsely increased. Protein Test strip Ql (U)Ord ered By: Dale Galdamez on 07-05-2024 Protein Ql (U) 30 mg/dl High Negative [facility] RBC Auto (Bld) [#/Vol]Ordere d By: Dale Galdamez on 07-05-2024 RBC (Bld) [#/Vol] 5.05 10*6/uL 4.6-6.2 [facility] Serum anion gap measurementO rdered By: Dale Galdamez on 07-05-2024 Anion gap [Moles/Vol] 4 mmol/L Low 5-15 [facility] Serum globulin measurementOr dered By: Dale Galdamez on 07-05-2024 Globulin (S) [Mass/Vol] 3.6 g/dL 2.2-4.2 [facility] Serum or plasma alanine augustine otransferase (ALT) measurementOrdered By: Dale Galdamez on 07-05-2024 ALT [Catalytic activity/Vol] 27 U/L 16-61 [facility] Serum or plasma albumin margie urement (mass/volume)Ordered By: Dale Hoffman on 07-05-2024 Albumin [Mass/Vol] 3.5 g/dL 3.2-5.0 [facility] Serum or plasma alkaline jacobo sphatase measurementOrdered By: Dale Galdamez on 07-05-2024 ALP [Catalytic activity/Vol] 91 U/L 45-117 [facility] Serum or plasma calcium margie urement (mass/volume)Ordered By: Dale Hoffman on 07-05-2024 Calcium [Mass/Vol] 9.1 mg/dL 8.5-10.1 [facility] Serum or plasma creatinine m easurement (mass/volume)Ordered By: Dale Hoffman on 07-05-2024 Creatinine [Mass/Vol] 0.96 mg/dL 0.70-1.30 [facility] Comment on above: The validity of the calculated GFR & GFRAA in patients over 70 years has not been determined. Clinical correlation is essential. Serum or plasma urea nitroge n measurement (mass/volume)Ordered By: Dale Galdamez on 07-05-2024 Urea nitrogen [Mass/Vol] 11 mg/dL 7-18 [facility] Sodium levelOrdered By: Augustin Galdamez on 07-05-2024 Sodium [Moles/Vol] 142 mmol/L 136-145 [facility] Total proteinOrdered By: Dejuan Galdamez on 07-05-2024 Protein [Mass/Vol] 7.1 g/dL 6.4-8.2 [facility] Urinalysis, Completeon 07-05 RBC 10-25 SEEN Normal 0-5 [facility] Comment on above: Order Comment: CLEAN CATCH Performed By: #### L 400.0001 ####[facility] [address] [place], [address] WBC 0-5 SEEN Normal 0-5 [facility] Comment on above: Order Comment: CLEAN CATCH Performed By: #### L 400.0001 ####[facility] [address] [place], [address] BACTERIA 0 SEEN Normal None Seen [facility] Comment on above: Order Comment: CLEAN CATCH Performed By: #### L 400.0001 ####[facility] [address] [place], [address] EPI,SQUAMOUS 0 SEEN Normal 0-5 [facility] Comment on above: Order Comment: CLEAN CATCH Performed By: #### L 400.0001 ####[facility] [address] [place], [address] Mucus Ql (Urine sed) 0 SEEN Normal [facility] Comment on above: Order Comment: CLEAN CATCH Performed By: #### L 400.0001 ####[facility] [address] [place], [address] Urine blood detectionOrdered By: Dale Galdamez on 07-05-2024 Urine Occult Blood 150 /ul High Negative [facility] Urine clarityOrdered By: Dejuan Galdamez on 07-05-2024 Clarity (U) Clear Clear [facility] Urine color determinationOrd ered By: Dale Galdamez on 07-05-2024 Color (U) Yellow Yellow [facility] Urine leukocyte esterase det ection by dipstickOrdered By: Dale Galdamez on 07-05-2024 Leukocyte esterase Test strip Ql (U) 25 /ul High Negative [facility] Urine pHOrdered By: Dale Cristobal campoCaro on 07-05-2024 pH (U) 5.0 [pH] 5.0 - 8.0 [facility] Urine sediment bacteria coun t by microscopy (number/high power field)Ordered By: Dale Galdamez on 07-05-2024 Bacteria LM.HPF (Urine sed) [#/Area] 0 /[HPF] None Seen [facility] Urine specific gravity measu rementOrdered By: Dale CristobaljevonDalton on 07-05-2024 Specific gravity (U) [Rel density] 1.015 1.002-1.030 [facility] Urobilinogen Ql (U)Ordered B y: Dale KljevonDalton on 07-05-2024 Urobilinogen (U) [Mass/Vol] 4 mg/dL High Normal [facility] White blood cell (WBC) count Ordered By: Dale ThuyNoa on 07-05-2024 WBC (Bld) [#/Vol] 6.5 10*3/uL 4.4-11.0 [facility] White blood cell countOrdere d By: Dale Galdamez on 07-05-2024 Urine WBC 0-5 SEEN /hpf 0-5 [facility] Culture, Blood (WB)on 2023 CUB RT.IV Blood cultures x2, from two different sites No growth in 5 days. Normal [facility] Comment on above: Performed By: #### L 503.6620 #### [facility] Laboratory [address] [place], [place], [id number] CUB RT.IV Blood cultures x2, from two different sites No growth in 5 days. Normal [facility] Comment on above: Performed By: #### L 503.6620 #### [facility] Laboratory [address] [facility] [address] [place], [place], [id number] EGD Reporton 06-02-2024 EGD Report [facility] Medical Records Department [address] [place] [address] EGD Report MR#: [id number] Acct: [id number] Name: WOLF TURCIOS Jr. Rep #: [id number] : 1960 64 From: Nabeel Womack MD PCP: Dr. Iker Blackwell MD Status:[facility] Patient Name: Wolf Turcios Procedure Date: 06/02/2024 [...] 2 weeks. Procedure Code(s): --- Professional --- 25455, Esophagogastroduodenoscop y, flexible, transoral; with removal of foreign body(s) Diagnosis Code(s): --- Professional --- T18.128A, Food in esophagus causing other injury, initial encounter T18.108A, Unspecified foreign body in esophagus causing other injury, initial encounter CPT copyright 2021 [employer]. All rights reserved. The codes documented in this report are preliminary and upon title inspector review may be revised to meet current compliance requirements. Nabeel Womack MD 06/02/2024 7:25:56 PM This report has been signed electronically. Number of Addenda: 0 Note Initiated On: 06/02/2024 6:49 PM 06/02/241925 Date Nabeel Womack MD Cosigner Signature: Date (if indicated) CC: Dr. Nabeel Womack MD; Dr. Iker Blackwell MD Date Dictated: 06/02/241848 Date Transcribed: Family Services Manager: LORENA Signed Normal [facility] Emergency Department Summary on 06-02-2024 Emergency Department Summary [facility] Medical Records Department [address] [place] [address] Emergency Department Summary 06/02/24 MR#: [id number] Acct: [id number] Name: WOLF TURCIOS Jr. Rep #: [id number] : 1960 64 From: Tamica MILLER PCP: Dr. Iker Blackwell MD Status:[facility] Location: [facility] HPI - GI History of Present Illness [...] denies chest pain and shortness of breath. [facility] Medical History History of substance use History [...] 05/18/24 Unknown Rx mg-600 mg tablet extended chyobho26 hr (Mucus DM) nystatin 100,000 unit/mL oral [...] Nasal Cannula (more content not included)... Normal [facility] H AND P Exam - Surgicalon H&P Exam - Surgical [facility] Medical Records Department [address] [place] [address] H P Exam - Surgical 06/02/241920 MR#: [id number] Acct: [id number] Name: WOLF TURCIOS Jr. Rep #: [id number] : 1960 64 From: Nabeel Womack MD PCP: Dr. Iker Blackwell MD Status:[facility] Location: [place] [address] HPI - General HPI Narrative WOLF TURCIOS, [...] he does not have his dentures yet. [facility] Medical History History of substance use [...] 05/18/24 Unknown Rx mg-600 mg tablet extended fnctath97 hr (Mucus DM) nystatin 100,000 unit/mL oral [...] Pattern Blood Pressure (more content not included)... [facility] MR/POSTOP.ANE 06-02-2024 MR[facility]OP[facility] Medical Records Department [address] [place] [address] Anesthesia Postop Eval I 06/02/241947 MR#: [id number] Acct: [id number] Name: WOLF TRUCIOS JrFlorence Rep #: [id number] : 1960 64 From: Alexander Titus PCP: Dr. Iker Blackwell MD Status:REG [facility] Y Race: C Location: [place] [address] Anesthesia: Postop Eval I Current Vital Signs Temperature: 97.9 F Pulse Rate: 105 Blood Pressure: 134/100 Respiratory Rate: 17 Pulse Ox: 97 Assessment Airway patent: Yes Spontaneous unlabored respirations: Yes nausea: No Vomiting: No Anesthesia Complication: No Fluid Hydration Crystalloid volume administer (ml): 250 Total IV fluid infused: 250 Progress Note Anesthesia document: Postop Eval 1 completed: Yes 06/02/241948 Date Alexander Rangleignyaneli Signature: Date CC: Signed [facility] MR/[id number] 06-02-2024 MR/POSTOPAN2 [facility] Medical Records Department [address] [facility] [facility] [place] [address] Anesthesia Postop Eval II 06/02/241948 MR#: [id number] Acct: [id number] Name: WOLF TURCIOS Jr. Rep #: [id number] : 1960 64 From: Alexander Titus PCP: Dr. Iker Blackwell MD Status:REG [facility] Y Race: C Location: [place] [address] Anesthesia Postop Eval I Sum Postop Eval Completion status Anesthesia document: Postop Eval 1 completed: Yes Anesthesia Postop Eval I Summary Anesthesia Postop Eval I Summary: Anesthesia Postop Eval I: Assessment Summary Airway patent Yes 06/02/24 19:48 [facility] RN.JCOTE Spontaneous unlabored Yes 06/02/24 19:48 [facility] RN.JCOTE respirations Mental status nausea No 06/02/24 19:48 [facility] RN.JCOTE Vomiting No 06/02/24 19:48 [facility] RN.JCOTE Anesthesia Postop Eval I: Fluid Summary Crystalloid volume administer 250 06/02/24 19:48 [facility] RN.JCOTE (ml) Colloids volume administered ( ml) Blood Product volume administered (ml) Total IV fluid infused 250 06/02/24 19:48 [facility] RN.JCOTE Anesthesia Postop Eval I: Summary Notes Anesthesia Complication No 06/02/24 19:48 [facility] RN.JCOTE Anesthesia Complication Comment: Post-operative progress note Anesthesia: Postop Eval II Evaluation Mental status: Awake Pain Level: 0 nausea: No Vomiting: No 06/02/241948 Date Alexander Motta Signature: Date CC: Signed [facility] Urine Cultureon 06-02-2024 [facility] SENT LABEL TO U TO COLLECT Below infection level. Mixed Gram Pos Gram Neg Org [place] Count <1000 MIXC Mixed contaminants. Submit a new specimen if indicated. [facility] Comment on above: Performed By: #### M 100.2200, L400.0001 ####[facility] [address] [place], [address] Abdomen/Pelvis W IV Cont ONL Yon 05-31-2024 Abdomen/Pelvis W IV Cont ONLY [facility] Imaging Services [address] [place] [address] Abdomen/Pelvis W IV Cont ONLY MR#: [id number] Acct: [id number] Name: WOLF TURCIOS Jr. Rep #: [id number] : 1960 M 64 From: Quoc Carrillo MD PCP: Dr. Iker Blackwell MD Status: REG ER Study: Abdomen/Pelvis W IV Cont ONLY Date of Exam: Exam# [id number] Ordering Dr: Alcides Hanks DO [id number] EXAM: CT ABDOMEN AND PELVIS WITH INTRAVENOUS [...] Iker Blackwell MD; Dr. Alcides Hanks DO Family Services Manager: Signed Normal [facility] Amorphous sediment detection in urine sediment by light microscopyOrdered By: Alcides Hanks on 05-31-2024 Amorphous sediment LM Ql (Urine sed) 2+ [facility] BNP,B-Type NATRIURETIC PEPTI Enrike 05-31-2024 Natriuretic peptide B (Bld) [Mass/Vol] 11.7 pg/mL Normal 0-100 [facility] Comment on above: Performed By: #### L 503.6620 #### [facility] Laboratory [address] [place], [address] Basic Metabolic Profile (BMP )on 05-31-2024 BUN/CRE 17.5 RATIO Normal 10-20 [facility] Comment on above: Order Comment: 'TROP ' Serial specimen #1, #2 or #3: 1 Performed By: #### L 500.2500, L100.0100, L501.4020 #### [facility] Laboratory [address] [place], [address] CA,Total 8.6 mg/dL Normal 8.5-10.1 [facility] Comment on above: Order Comment: 'TROP ' Serial specimen #1, #2 or #3: 1 Performed By: #### L 500.2500, L100.0100, L501.4020 #### [facility] Laboratory [address] [place], [address] Chloride [Moles/Vol] 101 mmol/L Normal 98-107 [facility] Comment on above: Order Comment: 'TROP ' Serial specimen #1, #2 or #3: 1 Performed By: #### L 500.2500, L100.0100, L501.4020 #### [facility] Laboratory [address] [place], [address] CO2 [Moles/Vol] 36.0 mmol/L High 21.0-32.0 [facility] Comment on above: Order Comment: 'TROP ' Serial specimen #1, #2 or #3: 1 Performed By: #### L 500.2500, L100.0100, L501.4020 #### [facility] Laboratory [address] [place], [address] Creatinine [Mass/Vol] 0.91 mg/dL Normal 0.70-1.30 [facility] Comment on above: Order Comment: 'TROP ' Serial specimen #1, #2 or #3: 1 Result Comment: The validity of the calculated GFR GFRAA in patients over 70 years has not been determined. Clinical correlation is essential. Performed By: #### L 500.2500, L100.0100, L501.4020 #### [facility] Laboratory [address] [place], [address] ECRCL 82.70 ml/min Normal [facility] Comment on above: Order Comment: 'TROP ' Serial specimen #1, #2 or #3: 1 Performed By: #### L 500.2500, L100.0100, L501.4020 #### [facility] Laboratory [address] [place], [address] EST GFR - AA 108 mL/min Normal >60 [facility] Comment on above: Order Comment: 'TROP ' Serial specimen #1, #2 or #3: 1 Result Comment: Afri can [place] GFR Calc Performed By: #### L 500.2500, L100.0100, L501.4020 #### [facility] Laboratory [address] [place], [address] GAP 2 Low 5-15 [facility] Comment on above: Order Comment: 'TROP ' Serial specimen #1, #2 or #3: 1 Performed By: #### L 500.2500, L100.0100, L501.4020 #### [facility] Laboratory [address] [place], [address] GFR/1.73 sq M.predicted among non-blacks MDRD (S/P/Bld) [Vol rate/Area] 89 mL/min/{1.73_m2} Normal >60 [facility] Comment on above: Order Comment: 'TROP ' Serial specimen #1, #2 or #3: 1 Result Comment: Non- GFR Calc Performed By: #### L 500.2500, L100.0100, L501.4020 #### [facility] Laboratory [address] [place], [place], [id number] Glucose [Mass/Vol] 115 mg/dL High 74-106 [facility] Comment on above: Order Comment: 'TROP ' Serial specimen #1, #2 or #3: 1 Result Comment: Fast ing Glucose result from 100 to 125 mg/dL suggests IMPAIRED HOMEOSTASIS per A.D.A. criteria. Performed By: #### L 500.2500, L100.0100, L501.4020 #### [facility] [address] [place], [address] Potassium [Moles/Vol] 4.0 mmol/L Normal 3.5-5.1 [facility] Comment on above: Order Comment: 'TROP ' Serial specimen #1, #2 or #3: 1 Performed By: #### L 500.2500, L100.0100, L501.4020 #### [facility] [address] [place], [address] Sodium [Moles/Vol] 139 mmol/L Normal 136-145 [facility] Comment on above: Order Comment: 'TROP ' Serial specimen #1, #2 or #3: 1 Performed By: #### L 500.2500, L100.0100, L501.4020 #### [facility] [address] [place], [address] Urea nitrogen [Mass/Vol] 16 mg/dL Normal 7-18 [facility] Comment on above: Order Comment: 'TROP ' Serial specimen #1, #2 or #3: 1 Performed By: #### L 500.2500, L100.0100, L501.4020 #### [facility] [address] [place], [address] Bilirubin Test strip Ql (U)O rdered By: Alcides Hanks on 05-31-2024 Bilirubin Ql (U) Negative Negative [facility] CTA Chest W/WO Contraston CTA Chest W/WO Contrast [facility] Imaging Services [address] [place] [address] CTA Chest W/WO Contrast MR#: [id number] Acct: [id number] Name: WOLF TURCIOS JrFlorence Rep #: [id number] : 1960 M 64 From: Quoc Carrillo MD PCP: Dr. Iker Blackwell MD Status: REG ER Study: CTA Chest W/WO Contrast Date of Exam: 05/31/24 Exam# [id number] Ordering Dr: Alcides Hanks DO [id number] EXAM: CT ANGIOGRAPHY CHEST WITHOUT AND WITH [...] Iker Blackwell MD; Dr. Alcides Hanks DO Family Services Manager: Signed Normal [facility] Epithelial cells.squamous LM Ql (Urine sed)Ordered By: Alcides Hanks on 05-31-2024 Epithelial cells.squamous LM.HPF (Urine sed) [#/Area] 0 /[HPF] 0-5 [facility] Glucose Ql (U)Ordered By: Arnie Hanks on 05-31-2024 Urine Glucose (UA) Normal mg/dl Normal [facility] Ketones Test strip Ql (U)Ord ered By: Alcides Hanks on 05-31-2024 Ketones Ql (U) Negative Negative [facility] L501.4020on 05-31-2024 TROPONIN-I HS 8 pg/mL Normal 3.0-78.0 [facility] Comment on above: Order Comment: 'TROP ' Serial specimen #1, #2 or #3: 1 Result Comment: Plea se Note: New Test Units and Gender Specific Reference Ranges. For more information see Policy Stat Procedure [place] High Sensitivity Troponin (TNIH) and attachments. Performed By: #### L 500.2500, L100.0100, L501.4020 #### [facility] [address] [place], [address] Lactic Acidon 05-31-2024 Lactate [Moles/Vol] 1.6 mmol/L Normal 0.4-1.9 [facility] Comment on above: Order Comment: Y Performed By: #### L 503.6620 #### [facility] [address] [place], [address] Lipaseon 05-31-2024 Lipase [Catalytic activity/Vol] 15 U/L Normal 13-75 [facility] Comment on above: Order Comment: 'TROP ' Serial specimen #1, #2 or #3: 1 Result Comment: Plefarhana acosta note: LIPASE revised reference range effective 22. New Lipase methodology. Expected to produce lower values than the previous assay method. NEW Reference Range: 13 - 75 U/L Performed By: #### L 500.2500, L100.0100, L501.4020 #### [facility] [address] [place], [address] Liver Profileon 05-31-2024 Albumin [Mass/Vol] 2.9 g/dL Low 3.2-5.0 [facility] Comment on above: Order Comment: 'TROP ' Serial specimen #1, #2 or #3: 1 Performed By: #### L 500.2500, L100.0100, L501.4020 #### [facility] [address] [place], [address] ALK P 86 U/L Normal 45-117 [facility] Comment on above: Order Comment: 'TROP ' Serial specimen #1, #2 or #3: 1 Performed By: #### L 500.2500, L100.0100, L501.4020 #### [facility] [address] [place], [address] ALT [Catalytic activity/Vol] 52 U/L Normal 16-61 [facility] Comment on above: Order Comment: 'TROP ' Serial specimen #1, #2 or #3: 1 Performed By: #### L 500.2500, L100.0100, L501.4020 #### [facility] [address] [place], [address] AST [Catalytic activity/Vol] 21 U/L Normal 15-37 [facility] Comment on above: Order Comment: 'TROP ' Serial specimen #1, #2 or #3: 1 Performed By: #### L 500.2500, L100.0100, L501.4020 #### [facility] [address] [place], [address] Bilirubin [Mass/Vol] 0.40 mg/dL Normal 0.20-1.00 [facility] Comment on above: Order Comment: 'TROP ' Serial specimen #1, #2 or #3: 1 Result Comment: For patients on eltrombopag therapy, use of Dimension [place] TBIL is not recommended. Performed By: #### L 500.2500, L100.0100, L501.4020 #### [facility] [address] [place], [address] Bilirubin.direct [Mass/Vol] 0.10 mg/dL Normal 0.00-0.30 [facility] Comment on above: Order Comment: 'TROP ' Serial specimen #1, #2 or #3: 1 Performed By: #### L 500.2500, L100.0100, L501.4020 #### [facility] [address] [place], [address] Globulin (S) [Mass/Vol] 3.5 g/dL Normal 2.2-4.2 [facility] Comment on above: Order Comment: 'TROP ' Serial specimen #1, #2 or #3: 1 Performed By: #### L 500.2500, L100.0100, L501.4020 #### [facility] [address] [place], [address] T PROT 6.4 g/dL Normal 6.4-8.2 [facility] Comment on above: Order Comment: 'TROP ' Serial specimen #1, #2 or #3: 1 Performed By: #### L 500.2500, L100.0100, L501.4020 #### [facility] [address] [place], [address] M100.678on 05-31-2024 M100.678 Pending SARS-CoV-2 (COVID 19) Negative INFLUENZA A Negative INFLUENZA B Negative RSV PCR Negative Normal [facility] Comment on above: Performed By: #### M 100.678 ####[facility] [address] [place], [address] Microscopic analysis of urin e for red blood cells (RBC)Ordered By: Alcides Hanks on 05-31-2024 Urine RBC 0 SEEN /hpf 0-5 [facility] Mucus LM Ql (Urine sed)Order ed By: Alcides Hanks on 05-31-2024 Mucus Ql (Urine sed) 0 SEEN /hpf [facility] Nitrite Test strip Ql (U)Ord ered By: Alcides Hanks on 05-31-2024 Nitrite Ql (U) Negative Negative [facility] Partial Thromboplast Timeon 05-31-2024 aPTT Coag (Bld) [Time] 22.8 s Low 24.1-36.2 [facility] Comment on above: Performed By: #### L 503.6620 #### [facility] [address] [place], [address] Protein Test strip Ql (U)Ord ered By: Alcides Hanks on 05-31-2024 Protein Ql (U) 15 mg/dl High Negative [facility] Prothrombin Time w/INRon INR Coag (PPP) [Relative time] 0.9 {INR} Normal [facility] Comment on above: Performed By: #### L 503.6620 #### [facility] [address] [place], [address] PT Coag (PPP) [Time] 11.8 s Normal 11.7-14.9 [facility] Comment on above: Performed By: #### L 503.6620 #### [facility] [address] [place], [address] Urinalysis, Completeon 05-31 AMORPHOUS 2+ Normal [facility] Comment on above: Order Comment: SENT LABEL TO PCU TO COLLECTCOLLECTOR TO SPECIFY Performed By: #### M 100.2200, L400.0001 ####[facility] [address] [place], [address] BACTERIA 0 SEEN Normal None Seen [facility] Comment on above: Order Comment: SENT LABEL TO PCU TO COLLECTCOLLECTOR TO SPECIFY Performed By: #### M 100.2200, L400.0001 ####[facility] [address] [place], [address] EPI,SQUAMOUS 0 SEEN Normal 0-5 [facility] Comment on above: Order Comment: SENT LABEL TO PCU TO COLLECTCOLLECTOR TO SPECIFY Performed By: #### M 100.2200, L400.0001 ####[facility] [address] [place], [address] Mucus Ql (Urine sed) 0 SEEN Normal [facility] Comment on above: Order Comment: SENT LABEL TO PCU TO COLLECTCOLLECTOR TO SPECIFY Performed By: #### M 100.2200, L400.0001 ####[facility] [address] [place], [address] RBC 0 SEEN Normal 0-5 [facility] Comment on above: Order Comment: SENT LABEL TO PCU TO COLLECTCOLLECTOR TO SPECIFY Performed By: #### M 100.2200, L400.0001 ####[facility] [address] [place], [place], [address] WBC 0 SEEN Normal 0-5 [facility] Comment on above: Order Comment: SENT LABEL TO PCU TO COLLECTCOLLECTOR TO SPECIFY Performed By: #### M 100.2200, L400.0001 ####[facility] [address] [place], [place], [id number] Urine blood detectionOrdered By: Alcides Hanks on 05-31-2024 Urine Occult Blood Negative Negative [facility] Urine clarityOrdered By: Gisela Hanks on 05-31-2024 Clarity (U) Sl. Cloudy Clear [facility] Urine color determinationOrd ered By: Alcides Hanks on 05-31-2024 Color (U) Yellow Yellow [facility] Urine cultureOrdered By: Gisela Hanks on 05-31-2024 Bacteria identified Cx Nom (U) Mixed Gram Pos & Gram Neg Org Abnormal [facility] Urine leukocyte esterase det ection by dipstickOrdered By: Alcides Hanks on 05-31-2024 Leukocyte esterase Test strip Ql (U) Negative Negative [facility] Urine pHOrdered By: Alcides badillo on 05-31-2024 pH (U) 7.0 [pH] 5.0 - 8.0 [facility] Urine sediment bacteria coun t by microscopy (number/high power field)Ordered By: Alcides Hanks on 05-31-2024 Bacteria LM.HPF (Urine sed) [#/Area] 0 /[HPF] None Seen [facility] Urine specific gravity measu rementOrdered By: Alcides Hanks on 05-31-2024 Specific gravity (U) [Rel density] 1.010 1.002-1.030 [facility] Urobilinogen Ql (U)Ordered B y: Alcides Hanks on 05-31-2024 Urine Urobilinogen Normal mg/dl Normal [facility] White blood cell countOrdere d By: Alcides Hanks on 05-31-2024 Urine WBC 0 SEEN /hpf 0-5 [facility] 12 Lead EKGon 05-30-2024 12 Lead EKG [facility] Cardiovascular Services [address] [place] [address] 12 Lead EKG 05/30/24 2327 MR#: [id number] Acct: [id number] Name: WOLF TURCIOS Jr. Rep #: [id number] : 1960 64 From: Rohit Hyman MD [...] ECG Confirmed by ROCK BOYER, ROHIT ([id number]), food expeditor YENNY NUNEZ ([id number]) on 06/02/2024 2:14:35 PM Referred By: TB Confirmed By: ROHIT HYMAN MD 06/02/24 1414 Date Rohit Hyman MD CC: Dr. Iker Blackwell MD; Dr. Alcides Hanks DO Signed Normal [facility] Absolute neutrophil countOrd ered By: Alcides Hanks on 05-30-2024 Neutrophils (Bld) [#/Vol] 11.8 10*3/uL High 2.0-7.7 [facility] Arterial patency Wrist arter y --pre arterial punctureOrdered By: Alcides Hanks on 05-30-2024 Humaira Test Positive [facility] BNP (brain natriuretic pepti de measurement)Ordered By: Alcides Hanks on 05-30-2024 Natriuretic peptide B (Bld) [Mass/Vol] 11.7 pg/mL 0-100 [facility] Base excess Calc (BldV) [Mol es/Vol]Ordered By: Alcides Hanks on 05-30-2024 Blood Gas Base Excess 11 mmol/L High -2-2 [facility] Basophil percentageOrdered B y: Alcides Hanks on 05-30-2024 Basophils/100 WBC (Bld) 0.3 % 0-1 [facility] Bilirubin directOrdered By: Alcides Hanks on 05-30-2024 Bilirubin.direct [Mass/Vol] 0.10 mg/dL 0.00-0.30 [facility] Bilirubin, totalOrdered By: Alcides Hanks on 05-30-2024 Bilirubin [Mass/Vol] 0.40 mg/dL 0.20-1.00 [facility] Comment on above: For patients on eltr ombopag therapy, use of Dimension [place] TBIL is not recommended. Blood Gases by [facility] 024 HUMAIRA TEST Positive Normal [facility] Comment on above: Performed By: #### L 503.6620 #### [facility] [address] [place], [address] Base excess Calc (Bld) [Moles/Vol] 11 mmol/L High -2 to +2 [facility] Comment on above: Performed By: #### L 503.6620 #### [facility] [address] [place], [address] Blood Gas Type ART Normal [facility] Comment on above: Performed By: #### L 503.6620 #### [facility] [address] [place], [address] CO2 [Moles/Vol] 38 mmol/L [facility] Comment on above: Performed By: #### L 503.6620 #### [facility] [address] [place], [address] FI02 2.0 Normal [facility] Comment on above: Performed By: #### L 503.6620 #### [facility] [address] [place], [address] HCO3 (Bld) [Moles/Vol] 36.3 mmol/L High 22-26 [facility] Comment on above: Performed By: #### L 503.6620 #### [facility] [address] [place], [address] Mode Not entered Normal [facility] Comment on above: Performed By: #### L 503.6620 #### [facility] [address] [place], [address] O2 Delivery Dev Cannula Normal [facility] Comment on above: Performed By: #### L 503.20 #### [facility] [address] [place], [address] pCO2 60.7 mmHg High 35-45 [facility] Comment on above: Performed By: #### L 503.20 #### [facility] [address] [place], [address] pH (Bld) 7.39 [pH] Normal 7.35-7.45 [facility] Comment on above: Performed By: #### L 503.20 #### [facility] [address] [place], [address] PO2 92 mmHG Normal 75-100 [facility] Comment on above: Performed By: #### L 503.20 #### [facility] [address] [place], [address] SITE L Radial Normal [facility] Comment on above: Performed By: #### L 503.6620 #### [facility] [address] [place], [address] SO2 97 Normal 95-99 [facility] Comment on above: Performed By: #### L 503.6620 #### [facility] [address] [place], [address] Blood bicarbonate measuremen tOrdered By: Alcides Hanks on 05-30-2024 Blood Gas Bicarbonate Actual 36.3 mmol/L High 22-26 [facility] Blood cultureOrdered By: Gisela Hanks on 05-30-2024 Bacteria identified Cx Nom (Bld) No growth in 5 days. [facility] Bacteria identified Cx Nom (Bld) No growth in 5 days. [facility] Blood urea nitrogen (BUN)/cr eatinine ratioOrdered By: Alcides Hanks on 05-30-2024 Urea nitrogen/Creatinine [Mass ratio] 17.5 mg/mg 10- [facility] CBC W/Diff, Automatedon 05-09 Absolute Lymph 2.11 X10 3/uL Normal 0.83-4.51 [facility] Comment on above: Performed By: #### L 503.6620 #### [facility] [address] [place], [address] Absolute Neut 11.8 X10 3/uL High 2.0-7.7 [facility] Comment on above: Performed By: #### L 503.6620 #### [facility] [address] [place], [address] Basophils/100 WBC (Bld) 0.3 % Normal 0-1 [facility] Comment on above: Performed By: #### L 503.20 #### [facility] [address] [place], [address] Eosinophils/100 WBC (Bld) 6.6 % High 0-5 [facility] Comment on above: Performed By: #### L 503.6620 #### [facility] [address] [place], [address] Erythrocyte distribution width (RBC) [Ratio] 13.2 % Normal 11.6-14.6 [facility] Comment on above: Performed By: #### L 503.6620 #### [facility] [address] [place], [address] Hematocrit (Bld) [Volume fraction] 49.5 % Normal 40-54 [facility] Comment on above: Performed By: #### L 503.6620 #### [facility] [address] [place], [address] Hemoglobin (Bld) [Mass/Vol] 15.6 g/dL Normal 13.0-16.5 [facility] Comment on above: Performed By: #### L 503.6620 #### [facility] [address] [place], [address] IG% 2.100 High 0.0-0.9 [facility] Comment on above: Result Comment: IG% - Immature Granulocytes (promyelocytes, myelocytes and metamyelocytes) > 1% indicates that a LEFT SHIFT is Present. Performed By: #### L 503.20 #### [facility] [address] [place], [address] Lymphocytes/100 WBC (Bld) 12.7 % Low 19-41 [facility] Comment on above: Performed By: #### L 503.20 #### [facility] [address] [place], [address] MCH (RBC) [Entitic mass] 30.2 pg Normal 27.0-32.0 [facility] Comment on above: Performed By: #### L 503.20 #### [facility] [address] [place], [address] MCHC (RBC) [Mass/Vol] 31.5 g/dL Low 32-36 [facility] Comment on above: Performed By: #### L 503.20 #### [facility] [address] [place], [address] MCV (RBC) [Entitic vol] 95.9 fL High 80-94 [facility] Comment on above: Performed By: #### L 503.20 #### [facility] [address] [place], [address] Monocytes/100 WBC (Bld) 7.3 % Normal 0-10 [facility] Comment on above: Performed By: #### L 503.20 #### [facility] [address] [place], [address] Neutrophils/100 WBC (Bld) 71.0 % High 47-70 [facility] Comment on above: Performed By: #### L 503.20 #### [facility] [address] [place], [address] Nucleated RBC (Bld) [#/Vol] 0 10*3/uL Normal 0-5 [facility] Comment on above: Performed By: #### L 503.6619 #### [facility] [address] [place], [address] Platelet mean volume (Bld) [Entitic vol] 8.8 fL Normal 6.2-12.0 [facility] Comment on above: Performed By: #### L 503.6619 #### [facility] [address] [place], [address] Platelets (Bld) [#/Vol] 261 10*3/uL Normal 150-450 [facility] Comment on above: Performed By: #### L 503.6619 #### [facility] [address] [place], [address] RBC (Bld) [#/Vol] 5.16 10*6/uL Normal 4.6-6.2 [facility] Comment on above: Performed By: #### L 503.20 #### [facility] [address] [place], [address] RDW SD 47.0 fl High 35.1-43.9 [facility] Comment on above: Performed By: #### L 503.20 #### [facility] [address] [place], [address] WBC (Bld) [#/Vol] 16.6 10*3/uL High 4.4-11.0 [facility] Comment on above: Performed By: #### L 503.6619 #### [facility] [address] [place], [address] Carbon dioxide measurementOr dered By: Alcides Hanks on 05-30-2024 CO2 [Moles/Vol] 36.0 mmol/L High 21.0-32.0 [facility] Chloride measurementOrdered By: Alcides Hanks on 05-30-2024 Chloride [Moles/Vol] 101 mmol/L 98-107 [facility] Determination of fraction of inspired oxygenOrdered By: Alcides Hanks on 05-30-2024 Blood Gas Oxygen Percent 2.0 [facility] Emergency Department Summary on 05-30-2024 Emergency Department Summary [facility] Medical Records Department [address] [place] [address] Emergency Department Summary 05/30/24 MR#: [id number] Acct: [id number] Name: WOLF TURCIOS Jr. Rep #: [id number] : 1960 64 From: Alcides Hanks DO [...] therefore they placed him on 5 L. 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 Normal [facility] Eosinophil percentageOrdered By: Alcides Hanks on 05-30-2024 Eosinophils/100 WBC (Bld) 6.6 % High 0-5 [facility] Erythrocyte distribution wid th ratioOrdered By: Alcides Hanks on 05-30-2024 Erythrocyte distribution width (RBC) [Ratio] 13.2 % 11.6-14.6 [facility] Erythrocyte distribution wid th standard deviationOrdered By: Alcides Hanks on 05-30-2024 Erythrocyte distribution width (RBC) [Entitic vol] 47.0 fL High 35.1-43.9 [facility] Estimated glomerular filtrat ion rate (GFR) AmericanOrdered By: Alcides Hanks on 05-30-2024 Estimated GFR (MDRD) Amer 108 mL/min >60 [facility] Comment on above: GFR Calc Estimation of creatinine kehinde aranceOrdered By: Alcides Hanks on 05-30-2024 Estimated Creatinine Clearance Calc 82.70 ml/min [facility] Glomerular filtration rate ( GFR) estimationOrdered By: Alcides Hanks on 05-30-2024 Estimated GFR (MDRD) Non-Af Amer 89 mL/min >60 [facility] Comment on above: Non- GFR Calc Glucose measurementOrdered B y: Alcides Hanks on 05-30-2024 Glucose [Mass/Vol] 115 mg/dL High 74-106 [facility] Comment on above: Fasting Glucose resu lt from 100 to 125 mg/dL suggests IMPAIRED HOMEOSTASIS per A.D.A. criteria. Hematocrit Auto (Bld) [Volum e fraction]Ordered By: Alcides Hanks on 05-30-2024 Hematocrit (Bld) [Volume fraction] 49.5 % 40-54 [facility] Hemoglobin measurementOrdere d By: Alcides Hanks on 05-30-2024 Hemoglobin (Bld) [Mass/Vol] 15.6 g/dL 13.0-16.5 [facility] Immature granulocytes/100 WB C Auto (Bld)Ordered By: Alcides Hanks on 05-30-2024 Immature granulocytes/100 WBC (Bld) 2.100 % High 0.0-0.9 [facility] Comment on above: IG% - Immature Granu locytes (promyelocytes, myelocytes and metamyelocytes) > 1% indicates that a LEFT SHIFT is Present. Influenza virus A and B and SARS-CoV-2 (COVID-19) and Respiratory syncytial virus RNAOrdered By: Alcides Hanks on 05-30-2024 SARS-CoV-2 (COVID-19) RNA MOMO+probe Ql (Unsp spec) [facility] International normalized rat io (INR) calculationOrdered By: Alcides Hanks on 05-30-2024 INR Coag (Bld) [Relative time] 0.9 {INR} [facility] Laboratory - Chemistry and C hemistry - challengeOrdered By: Alcides Hanks on 05-30-2024 AST [Catalytic activity/Vol] 21 U/L 15-37 [facility] Lactic acid measurementOrder ed By: Alcides Hanks on 05-30-2024 Lactate [Moles/Vol] 1.6 mmol/L 0.4-2.0 [facility] Lipase measurementOrdered By : Alcides Hanks on 05-30-2024 Lipase [Catalytic activity/Vol] 15 U/L 13-75 [facility] Comment on above: Please note:LIPASE r evised reference range effective 22. New Lipase methodology. Expected to produce lower values than the previous assay method. NEW Reference Range: 13 - 75 U/L Lymphocytes Auto (Unsp spec) [#/Vol]Ordered By: Alcides Hanks on 05-30-2024 Lymphocytes (Bld) [#/Vol] 2.11 10*3/uL 0.83-4.51 [facility] Lymphocytes/100 WBC Auto (Un sp spec)Ordered By: Alcides Hanks on 05-30-2024 Lymphocytes/100 WBC (Bld) 12.7 % Low 19-41 [facility] MCV (mean corpuscular volume ) determinationOrdered By: Alcides Hanks on 05-30-2024 MCV (RBC) [Entitic vol] 95.9 fL High 80-94 [facility] Mean corpuscular hemoglobin (MCH) determinationOrdered By: Alcides Hanks on 05-30-2024 MCH (RBC) [Entitic mass] 30.2 pg 27.0-32.0 [facility] Mean corpuscular hemoglobin concentration (MCHC) determinationOrdered By: Alcides Hanks on 05-30-2024 MCHC (RBC) [Mass/Vol] 31.5 g/dL Low 32-36 [facility] Mean platelet volume determi nationOrdered By: Alcides Hanks on 05-30-2024 Platelet mean volume (Bld) [Entitic vol] 8.8 fL 6.2-12.0 [facility] Monocyte percentageOrdered B y: Alcides Hanks on 05-30-2024 Monocytes/100 WBC (Bld) 7.3 % 0-10 [facility] Neutrophil percentageOrdered By: Alcides Hanks on 05-30-2024 Neutrophils/100 WBC (Bld) 71.0 % High 47-70 [facility] No Panel InformationOrdered By: Alcides Hanks on 05-30-2024 Blood Gas Sample Site L Radial [facility] Blood Gas Specimen Type ART [facility] Blood Gas Vent Mode Not entered [facility] Oxygen Delivery Device Cannula [facility] Nucleated red blood cell per centageOrdered By: Alcides Hanks on 05-30-2024 Nucleated RBC/100 WBC (Bld) [Ratio] 0 % 0-5 [facility] Oxygen saturation measuremen tOrdered By: Alcides Hanks on 05-30-2024 Blood Gas Oxygen Saturation 97 % 95-99 [facility] Partial pressure of carbon d ioxide measurementOrdered By: Alcides Hanks on 05-30-2024 Arterial Blood Partial Pressure CO2 60.7 mmHg High 35-45 [facility] Partial pressure of oxygen m easurementOrdered By: Alcides Hanks on 05-30-2024 Arterial Blood Partial Pressure O2 92 mmHG 75-100 [facility] Platelet countOrdered By: Arnie Hanks on 05-30-2024 Platelets (Bld) [#/Vol] 261 10*3/uL 150-450 [facility] Potassium measurementOrdered By: Alcides Hanks on 05-30-2024 Potassium [Moles/Vol] 4.0 mmol/L 3.5-5.1 [facility] Prothrombin timeOrdered By: Alcides Hanks on 05-30-2024 PT Coag (PPP) [Time] 11.8 s 11.7-14.9 [facility] RBC Auto (Bld) [#/Vol]Ordere d By: Alcides Hanks on 05-30-2024 RBC (Bld) [#/Vol] 5.16 10*6/uL 4.6-6.2 [facility] Serum anion gap measurementO rdered By: Alcides Hanks on 05-30-2024 Anion gap [Moles/Vol] 2 mmol/L Low 5-15 [facility] Serum globulin measurementOr dered By: Alcides Hanks on 05-30-2024 Globulin (S) [Mass/Vol] 3.5 g/dL 2.2-4.2 [facility] Serum or plasma alanine augustine otransferase (ALT) measurementOrdered By: Alcides Hanks on 05-30-2024 ALT [Catalytic activity/Vol] 52 U/L 16-61 [facility] Serum or plasma albumin margie urement (mass/volume)Ordered By: Alcides Hanks on 05-30-2024 Albumin [Mass/Vol] 2.9 g/dL Low 3.2-5.0 [facility] Serum or plasma alkaline jacobo sphatase measurementOrdered By: Alcides Hanks on 05-30-2024 ALP [Catalytic activity/Vol] 86 U/L 45-117 [facility] Serum or plasma calcium margie urement (mass/volume)Ordered By: Alcides Hanks on 05-30-2024 Calcium [Mass/Vol] 8.6 mg/dL 8.5-10.1 [facility] Serum or plasma creatinine m easurement (mass/volume)Ordered By: Alcides Hanks on 05-30-2024 Creatinine [Mass/Vol] 0.91 mg/dL 0.70-1.30 [facility] Comment on above: The validity of the calculated GFR & GFRAA in patients over 70 years has not been determined. Clinical correlation is essential. Serum or plasma urea nitroge n measurement (mass/volume)Ordered By: Alcides Hanks on 05-30-2024 Urea nitrogen [Mass/Vol] 16 mg/dL 7-18 [facility] Sodium levelOrdered By: Tisha Hanks on 05-30-2024 Sodium [Moles/Vol] 139 mmol/L 136-145 [facility] Total carbon dioxide measure mentOrdered By: Alcides Hanks on 05-30-2024 Blood Gas Total CO2 38 mmol/L [facility] Total proteinOrdered By: Gisela Hanks on 05-30-2024 Protein [Mass/Vol] 6.4 g/dL 6.4-8.2 [facility] Troponin IOrdered By: Alcides Hanks on 05-30-2024 Troponin I High Sensitivity 8 pg/mL 3.0-78.0 [facility] Comment on above: Please Note: New Melvin t Units and Gender Specific Reference Ranges. For more information see Policy Stat Procedure [place] High Sensitivity Troponin (TNIH) and attachments. White blood cell (WBC) count Ordered By: Alcides Hanks on 05-30-2024 WBC (Bld) [#/Vol] 16.6 10*3/uL High 4.4-11.0 [facility] aPTT Coag (PPP) [Time]Ordere d By: Alcides Hanks on 05-30-2024 aPTT Coag (Bld) [Time] 22.8 s Low 24.1-36.2 [facility] pH (Unsp spec)Ordered By: Arnie lona Hanks on 05-30-2024 Blood Gas pH 7.39 7.35-7.45 [facility] Culture, Blood (WB)on 2023 CUB Blood cultures x2, f rom two different sites No growth in 5 days. Normal [facility] Comment on above: Performed By: #### L 503.6620 #### [facility] Laboratory [address] [place], [place], [id number] Respiratory Cultureon 2023 RESPC Pseudomonas aerugino sa Amount Growth 3+ Pseudomonas aeruginosa: REACTION Aztreonam Islt KB 18 I Pseudomonas aeruginosa: REACTION Amikacin Islt RAFAELA 4 S Cefepime Islt RAFAELA 2 S Ciprofloxacin Islt RAFAELA <=0.06 S Imipenem Islt RAFAELA 2 S levoFLOXacin Islt RAFAELA <=0.12 S Meropenem Islt RAFAELA 1 S Pip+Tazo Islt RAFAELA 8 S Tobramycin Islt RAFAELA <=1 S Normal [facility] Comment on above: Performed By: #### L 4073.0500 #### [facility] Laboratory [address] [place], [place], [id number] Gram Stainon 05-22-2024 GS Acceptable Specimen? Yes (<25 Epithelial cells per/lpf) Gram Stain 4+ Gram negative rods Rare Epithelial cells 1+ White Blood Cells Rare Gram positive cocci Normal [facility] Comment on above: Performed By: #### L 1910.0500 #### [facility] Laboratory [address] [place], [place], [id number] Absolute neutrophil countOrd ered By: White on 05-21-2024 Neutrophils (Bld) [#/Vol] 8.0 10*3/uL High 2.0-7.7 [facility] Albumin to globulin ratioOrd ered By: White on 05-21-2024 Albumin/Globulin [Mass ratio] 0.9 {ratio} 0.9-2.4 [facility] Basophil percentageOrdered B y: Noelle Fleming on 05-21-2024 Basophils/100 WBC (Bld) 0.2 % 0-1 [facility] Bilirubin, totalOrdered By: Noelle White on 05-21-2024 Bilirubin [Mass/Vol] 0.30 mg/dL 0.20-1.00 [facility] Comment on above: For patients on eltr ombopag therapy, use of Dimension [place] TBIL is not recommended. Blood urea nitrogen (BUN)/cr eatinine ratioOrdered By: Noelle White on 05-21-2024 Urea nitrogen/Creatinine [Mass ratio] 15.0 mg/mg 10- [facility] CBC W/Diff, Automatedon 05-08 Absolute Lymph 0.40 X10 3/uL Low 0.83-4.51 [facility] Comment on above: Performed By: #### L 500.2500, L100.0100, L501.4020 #### [facility] Laboratory [address] [place], [address] Absolute Neut 8.0 X10 3/uL High 2.0-7.7 [facility] Comment on above: Performed By: #### L 500.2500, L100.0100, L501.4020 #### [facility] Laboratory [address] [place], [address] Basophils/100 WBC (Bld) 0.2 % Normal 0-1 [facility] Comment on above: Performed By: #### L 500.2500, L100.0100, L501.4020 #### [facility] Laboratory [address] [place], [address] Eosinophils/100 WBC (Bld) 0.1 % Normal 0-5 [facility] Comment on above: Performed By: #### L 500.2500, L100.0100, L501.4020 #### [facility] Laboratory [address] [place], [address] Erythrocyte distribution width (RBC) [Ratio] 13.0 % Normal 11.6-14.6 [facility] Comment on above: Performed By: #### L 500.2500, L100.0100, L501.4020 #### [facility] Laboratory [address] [place], [address] Hematocrit (Bld) [Volume fraction] 46.4 % Normal 40-54 [facility] Comment on above: Performed By: #### L 500.2500, L100.0100, L501.4020 #### [facility] Laboratory [address] [place], [address] Hemoglobin (Bld) [Mass/Vol] 14.7 g/dL Normal 13.0-16.5 [facility] Comment on above: Performed By: #### L 500.2500, L100.0100, L501.4020 #### [facility] Laboratory [address] [place], [address] IG% 0.100 Normal 0.0-0.9 [facility] Comment on above: Result Comment: IG% - Immature Granulocytes (promyelocytes, myelocytes and metamyelocytes) > 1% indicates that a LEFT SHIFT is Present. Performed By: #### L 500.2500, L100.0100, L501.4020 #### [facility] Laboratory [address] [place], [address] Lymphocytes/100 WBC (Bld) 4.7 % Low 19-41 [facility] Comment on above: Performed By: #### L 500.2500, L100.0100, L501.4020 #### [facility] Laboratory [address] [place], [address] MCH (RBC) [Entitic mass] 30.6 pg Normal 27.0-32.0 [facility] Comment on above: Performed By: #### L 500.2500, L100.0100, L501.4020 #### [facility] Laboratory [address] [place], [address] MCHC (RBC) [Mass/Vol] 31.7 g/dL Low 32-36 [facility] Comment on above: Performed By: #### L 500.2500, L100.0100, L501.4020 #### [facility] Laboratory [address] [place], [address] MCV (RBC) [Entitic vol] 96.5 fL High 80-94 [facility] Comment on above: Performed By: #### L 500.2500, L100.0100, L501.4020 #### [facility] Laboratory [address] [place], [address] Monocytes/100 WBC (Bld) 0.8 % Normal 0-10 [facility] Comment on above: Performed By: #### L 500.2500, L100.0100, L501.4020 #### [facility] Laboratory [address] [place], [address] Neutrophils/100 WBC (Bld) 94.1 % High 47-70 [facility] Comment on above: Performed By: #### L 500.2500, L100.0100, [id number] #### [facility] Laboratory [address] [place], [address] Nucleated RBC (Bld) [#/Vol] 0 10*3/uL Normal 0-5 [facility] Comment on above: Performed By: #### L 500.2500, L100.0100, L501.4020 #### [facility] Laboratory [address] [place], [address] Platelet mean volume (Bld) [Entitic vol] 9.3 fL Normal 6.2-12.0 [facility] Comment on above: Performed By: #### L 500.2500, L100.0100, L501.4020 #### [facility] Laboratory [address] [place], [address] Platelets (Bld) [#/Vol] 272 10*3/uL Normal 150-450 [facility] Comment on above: Performed By: #### L 500.2500, L100.0100, [id number] #### [facility] Laboratory [address] [place], [address] RBC (Bld) [#/Vol] 4.81 10*6/uL Normal 4.6-6.2 [facility] Comment on above: Performed By: #### L 500.2500, L100.0100, L501.4020 #### [facility] Laboratory [address] [place], [address] RDW SD 46.3 fl High 35.1-43.9 [facility] Comment on above: Performed By: #### L 500.2500, L100.0100, [id number] #### [facility] Laboratory [address] [place], [address] WBC (Bld) [#/Vol] 8.5 10*3/uL Normal 4.4-11.0 [facility] Comment on above: Performed By: #### L 500.2500, L100.0100, [id number] #### [facility] Laboratory [address] [place], [address] Carbon dioxide measurementOr dered By: Noelle Fleming on 05-21-2024 CO2 [Moles/Vol] 32.0 mmol/L 21.0-32.0 [facility] Chloride measurementOrdered By: Noelle Fleming on 05-21-2024 Chloride [Moles/Vol] 103 mmol/L 98-107 [facility] Comprehensive Metabolic Prof ilon 05-21-2024 Albumin [Mass/Vol] 2.9 g/dL Low 3.2-5.0 [facility] Comment on above: Performed By: #### L 500.2500, L100.0100, L501.4020 #### [facility] Laboratory [address] [place], [address] Albumin/Globulin [Mass ratio] 0.9 {ratio} Normal 0.9-2.4 [facility] Comment on above: Performed By: #### L 500.2500, L100.0100, L501.4020 #### [facility] Laboratory [address] [place], [address] ALK P 79 U/L Normal 45-117 [facility] Comment on above: Performed By: #### L 500.2500, L100.0100, [id number] #### [facility] Laboratory [address] [place], [address] ALT [Catalytic activity/Vol] 27 U/L Normal 16-61 [facility] Comment on above: Performed By: #### L 500.2500, L100.0100, [id number] #### [facility] Laboratory [address] [place], [address] AST [Catalytic activity/Vol] 15 U/L Normal 15-37 [facility] Comment on above: Performed By: #### L 500.2500, L100.0100, L501.4020 #### [facility] Laboratory [address] [place], [address] Bilirubin [Mass/Vol] 0.30 mg/dL Normal 0.20-1.00 [facility] Comment on above: Result Comment: For patients on eltrombopag therapy, use of Dimension [place] TBIL is not recommended. Performed By: #### L 500.2500, L100.0100, L501.4020 #### [facility] Laboratory [address] [place], [address] BUN/CRE 15.0 RATIO Normal 10-20 [facility] Comment on above: Performed By: #### L 500.2500, L100.0100, [id number] #### [facility] Laboratory [address] [place], [address] CA,Total 8.9 mg/dL Normal 8.5-10.1 [facility] Comment on above: Performed By: #### L 500.2500, L100.0100, L501.4020 #### [facility] Laboratory [address] [place], [address] Chloride [Moles/Vol] 103 mmol/L Normal 98-107 [facility] Comment on above: Performed By: #### L 500.2500, L100.0100, L501.4020 #### [facility] Laboratory [address] [place], [address] CO2 [Moles/Vol] 32.0 mmol/L Normal 21.0-32.0 [facility] Comment on above: Performed By: #### L 500.2500, L100.0100, L501.4020 #### [facility] Laboratory [address] [place], [address] Creatinine [Mass/Vol] 0.93 mg/dL Normal 0.70-1.30 [facility] Comment on above: Result Comment: The validity of the calculated GFR GFRAA in patients over 70 years has not been determined. Clinical correlation is essential. Performed By: #### L 500.2500, L100.0100, L501.4020 #### [facility] Laboratory [address] [place], [address] ECRCL 79.11 ml/min Normal [facility] Comment on above: Performed By: #### L 500.2500, L100.0100, L501.4020 #### [facility] [address] [place], [address] EST GFR - AA 105 mL/min Normal >60 [facility] Comment on above: Result Comment: Afri can [place]an GFR Calc Performed By: #### L 500.2500, L100.0100, L501.4020 #### [facility] Laboratory [address] [place], [address] GAP 6 Normal 5-15 [facility] Comment on above: Performed By: #### L 500.2500, L100.0100, L501.4020 #### [facility] Laboratory [address] [place], [address] GFR/1.73 sq M.predicted among non-blacks MDRD (S/P/Bld) [Vol rate/Area] 87 mL/min/{1.73_m2} Normal >60 [facility] Comment on above: Result Comment: Non- GFR Calc Performed By: #### L 500.2500, L100.0100, L501.4020 #### [facility] Laboratory [address] [place], [address] Globulin (S) [Mass/Vol] 3.3 g/dL Normal 2.2-4.2 [facility] Comment on above: Performed By: #### L 500.2500, L100.0100, L501.4020 #### [facility] [address] [place], [address] Glucose [Mass/Vol] 185 mg/dL High 74-106 [facility] Comment on above: Result Comment: Fast ing Glucose result greater than or equal to 126 mg/dL suggests DIABETES MELLITUS per A.D.A. criteria. Performed By: #### L 500.2500, L100.0100, L501.4020 #### [facility] Laboratory [address] [place], [address] Potassium [Moles/Vol] 4.2 mmol/L Normal 3.5-5.1 [facility] Comment on above: Performed By: #### L 500.2500, L100.0100, L501.4020 #### [facility] [address] [place], [address] Sodium [Moles/Vol] 140 mmol/L Normal 136-145 [facility] Comment on above: Performed By: #### L 500.2500, L100.0100, L501.4020 #### [facility] [address] [place], [address] T PROT 6.2 g/dL Low 6.4-8.2 [facility] Comment on above: Performed By: #### L 500.2500, L100.0100, L501.4020 #### [facility] [address] [place], [address] Urea nitrogen [Mass/Vol] 14 mg/dL Normal 7-18 [facility] Comment on above: Performed By: #### L 500.2500, L100.0100, L501.4020 #### [facility] [address] [place], [address] Eosinophil percentageOrdered By: Noelle Fleming on 05-21-2024 Eosinophils/100 WBC (Bld) 0.1 % 0-5 [facility] Erythrocyte distribution wid th ratioOrdered By: Noelle Bernadette on 05-21-2024 Erythrocyte distribution width (RBC) [Ratio] 13.0 % 11.6-14.6 [facility] Erythrocyte distribution wid th standard deviationOrdered By: Noelle Fleming on 05-21-2024 Erythrocyte distribution width (RBC) [Entitic vol] 46.3 fL High 35.1-43.9 [facility] Estimated glomerular filtrat ion rate (GFR) AmericanOrdered By: Noelle Fleming on 05-21-2024 Estimated GFR (MDRD) Amer 105 mL/min >60 [facility] Comment on above: GFR Calc Estimation of creatinine kehinde aranceOrdered By: Noelle Fleming on 05-21-2024 Estimated Creatinine Clearance Calc 79.11 ml/min [facility] Glomerular filtration rate ( GFR) estimationOrdered By: Noelle Fleming on 05-21-2024 Estimated GFR (MDRD) Non-Af Amer 87 mL/min >60 [facility] Comment on above: Non- GFR Calc Glucose measurementOrdered B y: Noelle Fleming on 05-21-2024 Glucose [Mass/Vol] 185 mg/dL High 74-106 [facility] Comment on above: Fasting Glucose resu lt greater than or equal to 126 mg/dL suggests DIABETES MELLITUS per A.D.A. criteria. Gram stainOrdered By: Noelle Fleming on 05-21-2024 Microscopic observation Gram stain Nom (Unsp spec) [facility] Hematocrit Auto (Bld) [Volum e fraction]Ordered By: Noelle Bernadette on 05-21-2024 Hematocrit (Bld) [Volume fraction] 46.4 % 40-54 [facility] Hemoglobin measurementOrdere d By: on 05-21-2024 Hemoglobin (Bld) [Mass/Vol] 14.7 g/dL 13.0-16.5 [facility] Immature granulocytes/100 WB C Auto (Bld)Ordered By: Noelle Bernadette on 05-21-2024 Immature granulocytes/100 WBC (Bld) 0.100 % 0.0-0.9 [facility] Comment on above: IG% - Immature Granu locytes (promyelocytes, myelocytes and metamyelocytes) > 1% indicates that a LEFT SHIFT is Present. Laboratory - Chemistry and C hemistry - challengeOrdered By: Noelle Bernadette on 05-21-2024 AST [Catalytic activity/Vol] 15 U/L 15-37 [facility] Lymphocytes Auto (Unsp spec) [#/Vol]Ordered By: Noelle Bernadette on 05-21-2024 Lymphocytes (Bld) [#/Vol] 0.40 10*3/uL Low 0.83-4.51 [facility] Lymphocytes/100 WBC Auto (Un sp spec)Ordered By: on 05-21-2024 Lymphocytes/100 WBC (Bld) 4.7 % Low 19-41 [facility] MCV (mean corpuscular volume ) determinationOrdered By: on 05-21-2024 MCV (RBC) [Entitic vol] 96.5 fL High 80-94 [facility] Mean corpuscular hemoglobin (MCH) determinationOrdered By: on 05-21-2024 MCH (RBC) [Entitic mass] 30.6 pg 27.0-32.0 [facility] Mean corpuscular hemoglobin concentration (MCHC) determinationOrdered By: on 05-21-2024 MCHC (RBC) [Mass/Vol] 31.7 g/dL Low 32-36 [facility] Mean platelet volume determi nationOrdered By: Noelle Bernadette on 05-21-2024 Platelet mean volume (Bld) [Entitic vol] 9.3 fL 6.2-12.0 [facility] Microorganism identified Cx Nom (Unsp spec)Ordered By: Noelle Fleming on 05-21-2024 Respiratory Culture Pseudomonas aeruginosa Abnormal [facility] Monocyte percentageOrdered B y: Noelle Bernadette on 05-21-2024 Monocytes/100 WBC (Bld) 0.8 % 0-10 [facility] Neutrophil percentageOrdered By: Bernadette on 05-21-2024 Neutrophils/100 WBC (Bld) 94.1 % High 47-70 [facility] Nucleated red blood cell per centageOrdered By: Noelle Bernadette on 05-21-2024 Nucleated RBC/100 WBC (Bld) [Ratio] 0 % 0-5 [facility] Platelet countOrdered By: Cally Fleming on 05-21-2024 Platelets (Bld) [#/Vol] 272 10*3/uL 150-450 [facility] Potassium measurementOrdered By: Noelle Fleming on 05-21-2024 Potassium [Moles/Vol] 4.2 mmol/L 3.5-5.1 [facility] RBC Auto (Bld) [#/Vol]Ordere d By: Noelle Fleming on 05-21-2024 RBC (Bld) [#/Vol] 4.81 10*6/uL 4.6-6.2 [facility] Serum anion gap measurementO rdered By: Noelle Fleming on 05-21-2024 Anion gap [Moles/Vol] 6 mmol/L 5-15 [facility] Serum globulin measurementOr dered By: Noelle Bernadette on 05-21-2024 Globulin (S) [Mass/Vol] 3.3 g/dL 2.2-4.2 [facility] Serum or plasma alanine augustine otransferase (ALT) measurementOrdered By: Noelle Fleming on 05-21-2024 ALT [Catalytic activity/Vol] 27 U/L 16-61 [facility] Serum or plasma albumin margie urement (mass/volume)Ordered By: Noelle Bernadette on 05-21-2024 Albumin [Mass/Vol] 2.9 g/dL Low 3.2-5.0 [facility] Serum or plasma alkaline jacobo sphatase measurementOrdered By: Noelle Bernadette on 05-21-2024 ALP [Catalytic activity/Vol] 79 U/L 45-117 [facility] Serum or plasma calcium margie urement (mass/volume)Ordered By: Noelle Fleming on 05-21-2024 Calcium [Mass/Vol] 8.9 mg/dL 8.5-10.1 [facility] Serum or plasma creatinine m easurement (mass/volume)Ordered By: Noelle Fleming on 05-21-2024 Creatinine [Mass/Vol] 0.93 mg/dL 0.70-1.30 [facility] Comment on above: The validity of the calculated GFR & GFRAA in patients over 70 years has not been determined. Clinical correlation is essential. Serum or plasma urea nitroge n measurement (mass/volume)Ordered By: Noelle Fleming on 05-21-2024 Urea nitrogen [Mass/Vol] 14 mg/dL 7-18 [facility] Sodium levelOrdered By: Danni mn Bernadette on 05-21-2024 Sodium [Moles/Vol] 140 mmol/L 136-145 [facility] Total proteinOrdered By: Maciel umn Bernadette on 05-21-2024 Protein [Mass/Vol] 6.2 g/dL Low 6.4-8.2 [facility] White blood cell (WBC) count Ordered By: Noelle Fleming on 05-21-2024 WBC (Bld) [#/Vol] 8.5 10*3/uL 4.4-11.0 [facility] 12 Lead EKGon 05-20-2024 12 Lead EKG [facility] Cardiovascular Services [address] [place] [address] 12 Lead EKG 05/20/24 1920 MR#: [id number] Acct: [id number] Name: WOLF TURCIOS Rep #: [id number] : 1960 64 From: Chhaya Lam MD Attending Dr: Dr. Elijah Guerrero, DO [...] ECG Confirmed by GENARO BOYER, KARINA ([id number]), food expeditor YENNY NUNEZ ([id number]) on 05/25/2024 1:34:47 PM Referred By: BB Confirmed By: KARINA LAM MD 05/25/24 1334 Date Chhaya Lam MD CC: Dr. Kunal Stone MD; Dr. Iker Blackwell MD; Dr. Elijah Guerrero, DO Signed Normal [facility] Basic Metabolic Profile (BMP )on 05-20-2024 BUN/CRE 12.9 RATIO Normal 10-20 [facility] Comment on above: Order Comment: 'TROP ' Serial specimen #1, #2 or #3: 1 Performed By: #### L 500.2500, L100.0100, L501.4020 #### [facility] Laboratory [address] [place], [address] CA,Total 8.6 mg/dL Normal 8.5-10.1 [facility] Comment on above: Order Comment: 'TROP ' Serial specimen #1, #2 or #3: 1 Performed By: #### L 500.2500, L100.0100, L501.4020 #### [facility] Laboratory [address] [place], [address] Chloride [Moles/Vol] 103 mmol/L Normal 98-107 [facility] Comment on above: Order Comment: 'TROP ' Serial specimen #1, #2 or #3: 1 Performed By: #### L 500.2500, L100.0100, L501.4020 #### [facility] Laboratory [address] [place], [address] CO2 [Moles/Vol] 35.0 mmol/L High 21.0-32.0 [facility] Comment on above: Order Comment: 'TROP ' Serial specimen #1, #2 or #3: 1 Performed By: #### L 500.2500, L100.0100, L501.4020 #### [facility] Laboratory [address] [place], [address] Creatinine [Mass/Vol] 0.86 mg/dL Normal 0.70-1.30 [facility] Comment on above: Order Comment: 'TROP ' Serial specimen #1, #2 or #3: 1 Result Comment: The validity of the calculated GFR GFRAA in patients over 70 years has not been determined. Clinical correlation is essential. Performed By: #### L 500.2500, L100.0100, L501.4020 #### [facility] Laboratory [address] [place], [address] ECRCL 94.88 ml/min Normal [facility] Comment on above: Order Comment: 'TROP ' Serial specimen #1, #2 or #3: 1 Performed By: #### L 500.2500, L100.0100, L501.4020 #### [facility] Laboratory [address] [place], [address] EST GFR - AA 116 mL/min Normal >60 [facility] Comment on above: Order Comment: 'TROP ' Serial specimen #1, #2 or #3: 1 Result Comment: Afri can Chilean GFR Calc Performed By: #### L 500.2500, L100.0100, L501.4020 #### [facility] Laboratory [address] [place], [address] GAP 3 Low 5-15 [facility] Comment on above: Order Comment: 'TROP ' Serial specimen #1, #2 or #3: 1 Performed By: #### L 500.2500, L100.0100, L501.4020 #### [facility] Laboratory [address] [place], [address] GFR/1.73 sq M.predicted among non-blacks MDRD (S/P/Bld) [Vol rate/Area] 96 mL/min/{1.73_m2} Normal >60 [facility] Comment on above: Order Comment: 'TROP ' Serial specimen #1, #2 or #3: 1 Result Comment: Non- GFR Calc Performed By: #### L 500.2500, L100.0100, L501.4020 #### [facility] Laboratory [address] [place], [address] Glucose [Mass/Vol] 108 mg/dL High 74-106 [facility] Comment on above: Order Comment: 'TROP ' Serial specimen #1, #2 or #3: 1 Result Comment: Fast ing Glucose result from 100 to 125 mg/dL suggests IMPAIRED HOMEOSTASIS per A.D.A. criteria. Performed By: #### L 500.2500, L100.0100, L501.4020 #### [facility] Laboratory [address] [place], [address] Potassium [Moles/Vol] 3.8 mmol/L Normal 3.5-5.1 [facility] Comment on above: Order Comment: 'TROP ' Serial specimen #1, #2 or #3: 1 Performed By: #### L 500.2500, L100.0100, L501.4020 #### [facility] Laboratory [address] [place], [address] Sodium [Moles/Vol] 141 mmol/L Normal 136-145 [facility] Comment on above: Order Comment: 'TROP ' Serial specimen #1, #2 or #3: 1 Performed By: #### L 500.2500, L100.0100, L501.4020 #### [facility] Laboratory [address] [place], [address] Urea nitrogen [Mass/Vol] 11 mg/dL Normal 7-18 [facility] Comment on above: Order Comment: 'TROP ' Serial specimen #1, #2 or #3: 1 Performed By: #### L 500.2500, L100.0100, L501.4020 #### [facility] Laboratory [address] [place], [address] CBC W/Diff, Automatedon 12 Absolute Lymph 1.85 X10 3/uL Normal 0.83-4.51 [facility] Comment on above: Performed By: #### L 500.2500, L100.0100, L501.4020 #### [facility] Laboratory [address] [place], [address] Absolute Neut 7.3 X10 3/uL Normal 2.0-7.7 [facility] Comment on above: Performed By: #### L 500.2500, L100.0100, L501.4020 #### [facility] Laboratory [address] [place], [address] Basophils/100 WBC (Bld) 0.9 % Normal 0-1 [facility] Comment on above: Performed By: #### L 500.2500, L100.0100, L501.4020 #### [facility] Laboratory [address] [place], [address] Eosinophils/100 WBC (Bld) 3.1 % Normal 0-5 [facility] Comment on above: Performed By: #### L 500.2500, L100.0100, L501.4020 #### [facility] Laboratory [address] [place], [address] Erythrocyte distribution width (RBC) [Ratio] 13.0 % Normal 11.6-14.6 [facility] Comment on above: Performed By: #### L 500.2500, L100.0100, L501.4020 #### [facility] Laboratory [address] [place], [address] Hematocrit (Bld) [Volume fraction] 49.3 % Normal 40-54 [facility] Comment on above: Performed By: #### L 500.2500, L100.0100, L501.4020 #### [facility] Laboratory [address] [place], [address] Hemoglobin (Bld) [Mass/Vol] 16.0 g/dL Normal 13.0-16.5 [facility] Comment on above: Performed By: #### L 500.2500, L100.0100, L501.4020 #### [facility] Laboratory [address] [place], [address] IG% 0.400 Normal 0.0-0.9 [facility] Comment on above: Result Comment: IG% - Immature Granulocytes (promyelocytes, myelocytes and metamyelocytes) > 1% indicates that a LEFT SHIFT is Present. Performed By: #### L 500.2500, L100.0100, L501.4020 #### [facility] Laboratory [address] [place], [address] Lymphocytes/100 WBC (Bld) 17.7 % Low 19-41 [facility] Comment on above: Performed By: #### L 500.2500, L100.0100, L501.4020 #### [facility] Laboratory [address] [place], [address] MCH (RBC) [Entitic mass] 30.8 pg Normal 27.0-32.0 [facility] Comment on above: Performed By: #### L 500.2500, L100.0100, L501.4020 #### [facility] Laboratory [address] [place], [address] MCHC (RBC) [Mass/Vol] 32.5 g/dL Normal 32-36 [facility] Comment on above: Performed By: #### L 500.2500, L100.0100, L501.4020 #### [facility] Laboratory [address] [place], [address] MCV (RBC) [Entitic vol] 94.8 fL High 80-94 [facility] Comment on above: Performed By: #### L 500.2500, L100.0100, L501.4020 #### [facility] Laboratory [address] [place], [address] Monocytes/100 WBC (Bld) 8.6 % Normal 0-10 [facility] Comment on above: Performed By: #### L 500.2500, L100.0100, L501.4020 #### [facility] Laboratory [address] [place], [address] Neutrophils/100 WBC (Bld) 69.3 % Normal 47-70 [facility] Comment on above: Performed By: #### L 500.2500, L100.0100, L501.4020 #### [facility] Laboratory [address] [place], [address] Nucleated RBC (Bld) [#/Vol] 0 10*3/uL Normal 0-5 [facility] Comment on above: Performed By: #### L 500.2500, L100.0100, L501.4020 #### [facility] Laboratory [address] [place], [address] Platelet mean volume (Bld) [Entitic vol] 9.3 fL Normal 6.2-12.0 [facility] Comment on above: Performed By: #### L 500.2500, L100.0100, L501.4020 #### [facility] Laboratory [address] [place], [address] Platelets (Bld) [#/Vol] 309 10*3/uL Normal 150-450 [facility] Comment on above: Performed By: #### L 500.2500, L100.0100, L501.4020 #### [facility] Laboratory [address] [place], [address] RBC (Bld) [#/Vol] 5.20 10*6/uL Normal 4.6-6.2 [facility] Comment on above: Performed By: #### L 500.2500, L100.0100, L501.4020 #### [facility] Laboratory [address] [place], [address] RDW SD 45.9 fl High 35.1-43.9 [facility] Comment on above: Performed By: #### L 500.2500, L100.0100, L501.4020 #### [facility] Laboratory [address] [place], [address] WBC (Bld) [#/Vol] 10.5 10*3/uL Normal 4.4-11.0 [facility] Comment on above: Performed By: #### L 500.2500, L100.0100, L501.4020 #### [facility] Laboratory [address] [place], [address] Chest 1 View (Portable)on Chest 1 View (Portable) [facility] Imaging Services [address] [place] [address] Chest 1 View (Portable) MR#: [id number] Acct: [id number] Name: WOLF TURCIOS JrFlorence Rep #: [id number] : 1960 M 64 From: Surya Labru [facility] PCP: Dr. Iker Blackwell MD Status: [facility] ER Study: Chest 1 View (Portable) Date of Exam: 05/20/24 Exam# [id number] Ordering Dr: Kunal Stone MD [id number] EXAM: XR CHEST, 1 VIEW CLINICAL INDICATION: [...] hyperinflation suggesting underlying COPD. Electronically Signed: Surya ReyesharevyjordynDO at 20:46 EST , CC: Dr. Kunal Stone MD; Dr. Iker Blackwell MD Family Services Manager: Signed Normal [facility] Emergency Department Summary on 05-20-2024 Emergency Department Summary [facility] Medical Records Department [address] [place] [address] Emergency Department Summary 05/20/24 MR#: [id number] Acct: [id number] Name: WOLF TURCIOS Jr. Rep #: [id number] : 1960 64 From: Kunal Stone MD [...] to the point where he called EMS. [facility] Medical History History of substance use History [...] H B (more content not included)... Normal [facility] H AND P Exam - [facility] 05-20-2024 H&P Exam - Hospitalist [facility] Medical Records Department [address] [place] [address] H P Exam - Hospitalist 05/20/242 MR#: [id number] Acct: [id number] Name: WOLF TURCIOS JrFlorence Rep #: [id number] : 1960 64 From: Noelel Fleming MD PCP: Dr. Iker Blackwell MD Status:[facility] Location: [place] [address] HPI - General General Date of Admission: [...] therapy who now Wade presents to the [facility] ED on 05/20/2024 with history of [...] apprehensive about discharge and notes living alone. [facility] Medical History History of substance use [...] 05/18/24 Unknown Rx mg-600 mg tablet extended [id number] hr (Mucus DM) nystatin 100,000 unit/mL oral [...] started at (more content not included)... Normal [facility] L501.4020on 05-20-2024 TROPONIN-I HS 6 pg/mL Normal 3.0-78.0 [facility] Comment on above: Order Comment: 'TROP ' Serial specimen #1, #2 or #3: 1 Result Comment: Elva acosta Note: New Test Units and Gender Specific Reference Ranges. For more information see Policy Stat Procedure [place] High Sensitivity Troponin (TNIH) and attachments. Performed By: #### L 500.2500, L100.0100, L501.4020 #### [facility] Laboratory [address] [place], [address] Respiratory Cultureon 2023 RESPC List Antibiotics [place] [...] S Tobramycin Islt RAFAELA <=1 S Normal [facility] Comment on above: Performed By: #### L 503.6620 #### [facility] Laboratory [address] [place], [address] Troponin IOrdered By: Iza Stone on 05-20-2024 Troponin I High Sensitivity 6 pg/mL 3.0-78.0 [facility] Comment on above: Please Note: New Melvin t Units and Gender Specific Reference Ranges. For more information see Policy Stat Procedure [place] High Sensitivity Troponin (TNIH) and attachments. Basic Metabolic Profile (BMP )on 05-18-2024 BUN/CRE 14.3 RATIO Normal - [facility] Comment on above: Performed By: #### L 500.2500, L100.0100, L501.4020 #### [facility] Laboratory [address] [place], [address] CA,Total 9.2 mg/dL Normal 8.5-10.1 [facility] Comment on above: Performed By: #### L 500.2500, L100.0100, L501.4020 #### [facility] Laboratory [address] [place], [address] Chloride [Moles/Vol] 104 mmol/L Normal 98-107 [facility] Comment on above: Performed By: #### L 500.2500, L100.0100, L501.4020 #### [facility] Laboratory [address] [place], [address] CO2 [Moles/Vol] 29.0 mmol/L Normal 21.0-32.0 [facility] Comment on above: Performed By: #### L 500.2500, L100.0100, L501.4020 #### [facility] Laboratory [address] [place], [address] Creatinine [Mass/Vol] 0.98 mg/dL Normal 0.70-1.30 [facility] Comment on above: Result Comment: The validity of the calculated GFR GFRAA in patients over 70 years has not been determined. Clinical correlation is essential. Performed By: #### L 500.2500, L100.0100, L501.4020 #### [facility] Laboratory [address] [place], [address] ECRCL 73.67 ml/min Normal [facility] Comment on above: Performed By: #### L 500.2500, L100.0100, L501.4020 #### [facility] Laboratory [address] [place], [address] EST GFR - AA 99 mL/min Normal >60 [facility] Comment on above: Result Comment: Afri can Chilean GFR Calc Performed By: #### L 500.2500, L100.0100, L501.4020 #### [facility] Laboratory [address] [place], [address] GAP 6 Normal 5-15 [facility] Comment on above: Performed By: #### L 500.2500, L100.0100, L501.4020 #### [facility] Laboratory [address] [place], [address] GFR/1.73 sq M.predicted among non-blacks MDRD (S/P/Bld) [Vol rate/Area] 82 mL/min/{1.73_m2} Normal >60 [facility] Comment on above: Result Comment: Non- GFR Calc Performed By: #### L 500.2500, L100.0100, L501.4020 #### [facility] Laboratory [address] [place], [address] Glucose [Mass/Vol] 258 mg/dL High 74-106 [facility] Comment on above: Result Comment: Gluc ose result greater than or equal to 200 mg/dL suggests DIABETES MELLITUS per A.D.A. criteria. Performed By: #### L 500.2500, L100.0100, L501.4020 #### [facility] Laboratory [address] [place], [address] Potassium [Moles/Vol] 3.8 mmol/L Normal 3.5-5.1 [facility] Comment on above: Performed By: #### L 500.2500, L100.0100, L501.4020 #### [facility] Laboratory [address] [place], [address] Sodium [Moles/Vol] 139 mmol/L Normal 136-145 [facility] Comment on above: Performed By: #### L 500.2500, L100.0100, L501.4020 #### [facility] Laboratory [address] [place], [address] Urea nitrogen [Mass/Vol] 14 mg/dL Normal 7-18 [facility] Comment on above: Performed By: #### L 500.2500, L100.0100, L501.4020 #### [facility] Laboratory [address] [place], [address] Blood urea nitrogen (BUN)/cr eatinine ratioOrdered By: Nicolas Hall on 05-18-2024 Urea nitrogen/Creatinine [Mass ratio] 14.3 mg/mg 10- [facility] CBC-Complete Blood Cnt No Di ffon 05-18-2024 Erythrocyte distribution width (RBC) [Ratio] 12.6 % Normal 11.6-14.6 [facility] Comment on above: Performed By: #### L 500.2500, L100.0100, L501.4020 #### [facility] Laboratory [address] [place], [address] Hematocrit (Bld) [Volume fraction] 46.1 % Normal 40-54 [facility] Comment on above: Performed By: #### L 500.2500, L100.0100, L501.4020 #### [facility] Laboratory [address] [place], [address] Hemoglobin (Bld) [Mass/Vol] 14.8 g/dL Normal 13.0-16.5 [facility] Comment on above: Performed By: #### L 500.2500, L100.0100, L501.4020 #### [facility] Laboratory [address] [place], [address] MCH (RBC) [Entitic mass] 30.5 pg Normal 27.0-32.0 [facility] Comment on above: Performed By: #### L 500.2500, L100.0100, L501.4020 #### [facility] Laboratory [address] [place], [address] MCHC (RBC) [Mass/Vol] 32.1 g/dL Normal 32-36 [facility] Comment on above: Performed By: #### L 500.2500, L100.0100, L501.4020 #### [facility] Laboratory [address] [place], [address] MCV (RBC) [Entitic vol] 94.9 fL High 80-94 [facility] Comment on above: Performed By: #### L 500.2500, L100.0100, L501.4020 #### [facility] Laboratory [address] [place], [address] Platelet mean volume (Bld) [Entitic vol] 9.5 fL Normal 6.2-12.0 [facility] Comment on above: Performed By: #### L 500.2500, L100.0100, L501.4020 #### [facility] Laboratory [address] [place], [address] Platelets (Bld) [#/Vol] 271 10*3/uL Normal 150-450 [facility] Comment on above: Performed By: #### L 500.2500, L100.0100, L501.4020 #### [facility] Laboratory [address] [place], [address] RBC (Bld) [#/Vol] 4.86 10*6/uL Normal 4.6-6.2 [facility] Comment on above: Performed By: #### L 500.2500, L100.0100, L501.4020 #### [facility] Laboratory [address] [place], [address] RDW SD 44.6 fl High 35.1-43.9 [facility] Comment on above: Performed By: #### L 500.2500, L100.0100, L501.4020 #### [facility] Laboratory [address] [place], [address] WBC (Bld) [#/Vol] 9.5 10*3/uL Normal 4.4-11.0 [facility] Comment on above: Performed By: #### L 500.2500, L100.0100, L501.4020 #### [facility] [facility] [address] [place], [address] Carbon dioxide measurementOr dered By: Nicolas Hall on 05-18-2024 CO2 [Moles/Vol] 29.0 mmol/L 21.0-32.0 [facility] Chloride measurementOrdered By: Nicolas Hall on 05-18-2024 Chloride [Moles/Vol] 104 mmol/L 98-107 [facility] Erythrocyte distribution wid th ratioOrdered By: Nicolas Hall on 05-18-2024 Erythrocyte distribution width (RBC) [Ratio] 12.6 % 11.6-14.6 [facility] Erythrocyte distribution wid th standard deviationOrdered By: Nicolas Hall on 05-18-2024 Erythrocyte distribution width (RBC) [Entitic vol] 44.6 fL High 35.1-43.9 [facility] Estimated glomerular filtrat ion rate (GFR) AmericanOrdered By: Nicolas Hall on 05-18-2024 Estimated GFR (MDRD) Amer 99 mL/min >60 [facility] Comment on above: GFR Calc Estimation of creatinine kehinde aranceOrdered By: Nicolas Hall on 05-18-2024 Estimated Creatinine Clearance Calc 73.67 ml/min [facility] Glomerular filtration rate ( GFR) estimationOrdered By: Nicolas Hall on 05-18-2024 Estimated GFR (MDRD) Non-Af Amer 82 mL/min >60 [facility] Comment on above: Non- GFR Calc Glucose measurementOrdered B y: Nicolas Hall on 05-18-2024 Glucose [Mass/Vol] 258 mg/dL High 74-106 [facility] Comment on above: Glucose result great er than or equal to 200 mg/dLsuggests DIABETES MELLITUS per A.D.A. criteria. Gram Stainon 05-18-2024 GS List Antibiotics [place] t 48 Hours? none List Antibiotics to be Started? none Acceptable Specimen? Yes (<25 Epithelial cells per/lpf) Gram Stain 2+ White Blood Cells Rare Gram negative rods No Epithelial cells Normal [facility] Comment on above: Performed By: #### L 503.6670 #### [facility] [address] [place], [address] Hematocrit Auto (Bld) [Volum e fraction]Ordered By: Nicolas Hall on 05-18-2024 Hematocrit (Bld) [Volume fraction] 46.1 % 40-54 [facility] Hemoglobin measurementOrdere d By: Nicolas Hall on 05-18-2024 Hemoglobin (Bld) [Mass/Vol] 14.8 g/dL 13.0-16.5 [facility] MCV (mean corpuscular volume ) determinationOrdered By: Nicolas Hall on 05-18-2024 MCV (RBC) [Entitic vol] 94.9 fL High 80-94 [facility] Mean corpuscular hemoglobin (MCH) determinationOrdered By: Nicolas Hall on 05-18-2024 MCH (RBC) [Entitic mass] 30.5 pg 27.0-32.0 [facility] Mean corpuscular hemoglobin concentration (MCHC) determinationOrdered By: Nicolas Hall on 05-18-2024 MCHC (RBC) [Mass/Vol] 32.1 g/dL 32-36 [facility] Mean platelet volume determi nationOrdered By: Nicolas Hall on 05-18-2024 Platelet mean volume (Bld) [Entitic vol] 9.5 fL 6.2-12.0 [facility] Platelet countOrdered By: Jamaal Hall on 05-18-2024 Platelets (Bld) [#/Vol] 271 10*3/uL 150-450 [facility] Potassium measurementOrdered By: Nicolas Hall on 05-18-2024 Potassium [Moles/Vol] 3.8 mmol/L 3.5-5.1 [facility] RBC Auto (Bld) [#/Vol]Ordere d By: Nicolas Hall on 05-18-2024 RBC (Bld) [#/Vol] 4.86 10*6/uL 4.6-6.2 [facility] Serum anion gap measurementO rdered By: Nicolas Hall on 05-18-2024 Anion gap [Moles/Vol] 6 mmol/L 5-15 [facility] Serum or plasma calcium margie urement (mass/volume)Ordered By: Nicolas Hall on 05-18-2024 Calcium [Mass/Vol] 9.2 mg/dL 8.5-10.1 [facility] Serum or plasma creatinine m easurement (mass/volume)Ordered By: Nicolas Hall on 05-18-2024 Creatinine [Mass/Vol] 0.98 mg/dL 0.70-1.30 [facility] Comment on above: The validity of the calculated GFR & GFRAA in patients over 70 years has not been determined. Clinical correlation is essential. Serum or plasma urea nitroge n measurement (mass/volume)Ordered By: Nicolas Hall on 05-18-2024 Urea nitrogen [Mass/Vol] 14 mg/dL 7-18 [facility] Sodium levelOrdered By: Angel Hall on 05-18-2024 Sodium [Moles/Vol] 139 mmol/L 136-145 [facility] White blood cell (WBC) count Ordered By: Nicolas Hall on 05-18-2024 WBC (Bld) [#/Vol] 9.5 10*3/uL 4.4-11.0 [facility] 12 Lead EKGon 05-17-2024 12 Lead EKG [facility] Cardi[facility] Services [address] [place] [address] 12 Lead EKG 05/17/24 1534 MR#: [id number] Acct: [id number] Name: WOLF TURCIOS Jr. Rep #: [id number] : 1960 64 From: Rohit Hyman MD Attending Dr: Dr. Elijah Guerrero DO Status: ADM IN Ordering Dr: Dior Candelaria DO Date: 05/17/24 Location: [facility] Sex: M C Admitted: 05/17/24 Test Reason [...] Abnormal ECG Confirmed by ROHIT HYMAN MD ([id number]), food expeditor HAMILTON JUAREZ ([id number]) on 05/18/2024 11:40:35 AM Referred By: Confirmed By: ROHIT HYMAN MD 05/18/24 1140 Date Rohit Hyman MD CC: Dr. Iker Blackwell MD; Dr. Elijah Guerrero DO; Dr. Dior Candelaria DO Signed Normal [facility] Absolute neutrophil countOrd ered By: Dior Candelaria on 05-17-2024 Neutrophils (Bld) [#/Vol] 5.9 10*3/uL 2.0-7.7 [facility] Basic Metabolic Profile (BMP )on 05-17-2024 BUN/CRE 11.3 RATIO Normal -20 [facility] Comment on above: Order Comment: 'TROP ' Serial specimen #1, #2 or #3: 1 Performed By: #### L 500.2500, L100.0100, L501.4020 #### [facility] [address] [place], [address] CA,Total 9.2 mg/dL Normal 8.5-10.1 [facility] Comment on above: Order Comment: 'TROP ' Serial specimen #1, #2 or #3: 1 Performed By: #### L 500.2500, L100.0100, L501.4020 #### [facility] [address] [place], [address] Chloride [Moles/Vol] 105 mmol/L Normal 98-107 [facility] Comment on above: Order Comment: 'TROP ' Serial specimen #1, #2 or #3: 1 Performed By: #### L 500.2500, L100.0100, L501.4020 #### [facility] [address] [place], [address] CO2 [Moles/Vol] 31.0 mmol/L Normal 21.0-32.0 [facility] Comment on above: Order Comment: 'TROP ' Serial specimen #1, #2 or #3: 1 Performed By: #### L 500.2500, L100.0100, L501.4020 #### [facility] [address] [place], [address] Creatinine [Mass/Vol] 0.71 mg/dL Normal 0.70-1.30 [facility] Comment on above: Order Comment: 'TROP ' Serial specimen #1, #2 or #3: 1 Result Comment: The validity of the calculated GFR GFRAA in patients over 70 years has not been determined. Clinical correlation is essential. Performed By: #### L 500.2500, L100.0100, L501.4020 #### [facility] [address] [place], [address] ECRCL 107.34 ml/min Normal [facility] Comment on above: Order Comment: 'TROP ' Serial specimen #1, #2 or #3: 1 Performed By: #### L 500.2500, L100.0100, L501.4020 #### [facility] [address] [place], [address] EST GFR - AA 143 mL/min Normal >60 [facility] Comment on above: Order Comment: 'TROP ' Serial specimen #1, #2 or #3: 1 Result Comment: Afri can Chilean GFR Calc Performed By: #### L 500.2500, L100.0100, L501.4020 #### [facility] [address] [place], [address] GAP 4 Low 5-15 [facility] Comment on above: Order Comment: 'TROP ' Serial specimen #1, #2 or #3: 1 Performed By: #### L 500.2500, L100.0100, L501.4020 #### [facility] [address] [place], [address] GFR/1.73 sq M.predicted among non-blacks MDRD (S/P/Bld) [Vol rate/Area] 119 mL/min/{1.73_m2} Normal >60 [facility] Comment on above: Order Comment: 'TROP ' Serial specimen #1, #2 or #3: 1 Result Comment: Non- GFR Calc Performed By: #### L 500.2500, L100.0100, L501.4020 #### [facility] [address] [place], [address] Glucose [Mass/Vol] 95 mg/dL Normal 74-106 [facility] Comment on above: Order Comment: 'TROP ' Serial specimen #1, #2 or #3: 1 Performed By: #### L 500.2500, L100.0100, L501.4020 #### [facility] [address] [place], [address] Potassium [Moles/Vol] 3.9 mmol/L Normal 3.5-5.1 [facility] Comment on above: Order Comment: 'TROP ' Serial specimen #1, #2 or #3: 1 Performed By: #### L 500.2500, L100.0100, L501.4020 #### [facility] [address] [place], [address] Sodium [Moles/Vol] 140 mmol/L Normal 136-145 [facility] Comment on above: Order Comment: 'TROP ' Serial specimen #1, #2 or #3: 1 Performed By: #### L 500.2500, L100.0100, L501.4020 #### [facility] [address] [place], [address] Urea nitrogen [Mass/Vol] 8 mg/dL Normal 7-18 [facility] Comment on above: Order Comment: 'TROP ' Serial specimen #1, #2 or #3: 1 Performed By: #### L 500.2500, L100.0100, L501.4020 #### [facility] [address] [place], [address] Basophil percentageOrdered B y: Remus Ungur on 05-17-2024 Basophils/100 WBC (Bld) 1.0 % 0-1 [facility] Blood cultureOrdered By: Rem us Ungur on 05-17-2024 Bacteria identified Cx Nom (Bld) No growth in 5 days. [facility] CBC W/Diff, Automatedon 12-1 0-4 Absolute Lymph 1.77 X10 3/uL Normal 0.83-4.51 [facility] Comment on above: Performed By: #### L 500.2500, L100.0100, L501.4020 #### [facility] [address] [place], [address] Absolute Neut 5.9 X10 3/uL Normal 2.0-7.7 [facility] Comment on above: Performed By: #### L 500.2500, L100.0100, L501.4020 #### [facility] [address] [place], [address] Basophils/100 WBC (Bld) 1.0 % Normal 0-1 [facility] Comment on above: Performed By: #### L 500.2500, L100.0100, L501.4020 #### [facility] [address] [place], [address] Eosinophils/100 WBC (Bld) 5.5 % High 0-5 [facility] Comment on above: Performed By: #### L 500.2500, L100.0100, L501.4020 #### [facility] [address] [place], [address] Erythrocyte distribution width (RBC) [Ratio] 12.6 % Normal 11.6-14.6 [facility] Comment on above: Performed By: #### L 500.2500, L100.0100, L501.4020 #### [facility] [address] [place], [address] Hematocrit (Bld) [Volume fraction] 49.6 % Normal 40-54 [facility] Comment on above: Performed By: #### L 500.2500, L100.0100, L501.4020 #### [facility] [address] [place], [address] Hemoglobin (Bld) [Mass/Vol] 15.5 g/dL Normal 13.0-16.5 [facility] Comment on above: Performed By: #### L 500.2500, L100.0100, L501.4020 #### [facility] [address] [place], [address] IG% 0.200 Normal 0.0-0.9 [facility] Comment on above: Result Comment: IG% - Immature Granulocytes (promyelocytes, myelocytes and metamyelocytes) > 1% indicates that a LEFT SHIFT is Present. Performed By: #### L 500.2500, L100.0100, L501.4020 #### [facility] [address] [place], [address] Lymphocytes/100 WBC (Bld) 19.6 % Normal 19-41 [facility] Comment on above: Performed By: #### L 500.2500, L100.0100, L501.4020 #### [facility] [address] [place], [address] MCH (RBC) [Entitic mass] 30.1 pg Normal 27.0-32.0 [facility] Comment on above: Performed By: #### L 500.2500, L100.0100, L501.4020 #### [facility] [address] [place], [address] MCHC (RBC) [Mass/Vol] 31.3 g/dL Low 32-36 [facility] Comment on above: Performed By: #### L 500.2500, L100.0100, L501.4020 #### [facility] [address] [place], [address] MCV (RBC) [Entitic vol] 96.3 fL High 80-94 [facility] Comment on above: Performed By: #### L 500.2500, L100.0100, L501.4020 #### [facility] [address] [place], [address] Monocytes/100 WBC (Bld) 8.1 % Normal 0-10 [facility] Comment on above: Performed By: #### L 500.2500, L100.0100, L501.4020 #### [facility] [address] [place], [address] Neutrophils/100 WBC (Bld) 65.6 % Normal 47-70 [facility] Comment on above: Performed By: #### L 500.2500, L100.0100, L501.4020 #### [facility] [address] [place], [address] Nucleated RBC (Bld) [#/Vol] 0 10*3/uL Normal 0-5 [facility] Comment on above: Performed By: #### L 500.2500, L100.0100, L501.4020 #### [facility] [address] [place], [address] Platelet mean volume (Bld) [Entitic vol] 9.4 fL Normal 6.2-12.0 [facility] Comment on above: Performed By: #### L 500.2500, L100.0100, L501.4020 #### [facility] [address] [place], [address] Platelets (Bld) [#/Vol] 280 10*3/uL Normal 150-450 [facility] Comment on above: Performed By: #### L 500.2500, L100.0100, L501.4020 #### [facility] [address] [place], [address] RBC (Bld) [#/Vol] 5.15 10*6/uL Normal 4.6-6.2 [facility] Comment on above: Performed By: #### L 500.2500, L100.0100, L501.4020 #### [facility] [address] [place], [address] RDW SD 45.3 fl High 35.1-43.9 [facility] Comment on above: Performed By: #### L 500.2500, L100.0100, L501.4020 #### [facility] [address] [place], [address] WBC (Bld) [#/Vol] 9.0 10*3/uL Normal 4.4-11.0 [facility] Comment on above: Performed By: #### L 500.2500, L100.0100, L501.4020 #### [facility] [address] [place], [address] Chest 1 View (Portable)on Chest 1 View (Portable) [facility] Imaging Services [address] [place] [address] Chest 1 View (Portable) MR#: [id number] Acct: [id number] Name: KAROLINAWOLF MOORE Rep #: [id number] : 1960 M 64 From: Reji Camilo MD PCP: Dr. Iker Blackwell MD Status: REG ER Study: Chest 1 View (Portable) Date of Exam: 05/17/24 Exam# [id number] Ordering Dr: Dior Candelaria DO 190:[id number] STUDY: X-RAY CHEST REASON FOR EXAM: Male, [...] Iker Blackwell MD; Dr. Dior Candelaria DO Family Services Manager: Signed Normal [facility] Emergency Department Summary on 05-17-2024 Emergency Department Summary [facility] Medical Records Department [address] [place] [address] Emergency Department Summary 05/17/24 MR#: [id number] Acct: [id number] Name: WOLF TURCIOS Jr. Rep #: [id number] : 1960 64 From: Dior Candelaria DO PCP: Dr. Iker Blackwell MD Status:ADM IN Location: [place] [address] HPI History of Present Illness Chief Complaint: [...] DVT. Complains of chest soreness from coughing. [facility] Medical History (Updated 05/17/24 @ 17:01 by [...] clear Eyes (more content not included)... Normal [facility] Eosinophil percentageOrdered By: Dior Candelaria on 05-17-2024 Eosinophils/100 WBC (Bld) 5.5 % High 0-5 [facility] Gram stainOrdered By: Julia Nye on 05-17-2024 Microscopic observation Gram stain Nom (Unsp spec) [facility] H AND P Exam - Hospitaliston 05-17-2024 H&P Exam - Hospitalist [facility] Medical Records Department [address] [place] [address] H P Exam - Hospitalist 05/17/24 1716 MR#: [id number] Acct: [id number] Name: WOLF TURCIOS Jr. Rep #: [id number] : 1960 64 From: Nicolas Hall DO PCP: Dr. Iker Blackwell MD Status:ADM IN Location: MS3 EA139-2 HPI - General General Date of Admission: 05/17/24 Date of Service: 05/17/24 Chief Complaint: Worsening shortness of breath HPI Narrative WOLF TURCIOS, is a 64 M who presented to [facility] ED on 05/17/2024 with worsening shortness of [...] currently. Will be admitted for further management. [facility] Medical History (Updated 05/17/24 @ 18:18 by [...] F T (more content not included)... Normal [facility] Immature granulocytes/100 WB C Auto (Bld)Ordered By: Dior Candelaria on 05-17-2024 Immature granulocytes/100 WBC (Bld) 0.200 % 0.0-0.9 [facility] Comment on above: IG% - Immature Granu locytes (promyelocytes, myelocytes and metamyelocytes) > 1% indicates that a LEFT SHIFT is Present. Influenza virus A and B and SARS-CoV-2 (COVID-19) and Respiratory syncytial virus RNAOrdered By: Dior Candelaria on 05-17-2024 SARS-CoV-2 (COVID-19) RNA MOMO+probe Ql (Unsp spec) [facility] L501.4020on 05-17-2024 TROPONIN-I HS 8 pg/mL Normal 3.0-78.0 [facility] Comment on above: Order Comment: 'TROP ' Serial specimen #1, #2 or #3: 1 Result Comment: Plea se Note: New Test Units and Gender Specific Reference Ranges. For more information see Policy Stat Procedure [place] High Sensitivity Troponin (TNIH) and attachments. Performed By: #### L 500.2500, L100.0100, L501.4020 ####[facility] [id number] [place], [address] Lymphocytes Auto (Unsp spec) [#/Vol]Ordered By: Dior Candelaria on 05-17-2024 Lymphocytes (Bld) [#/Vol] 1.77 10*3/uL 0.83-4.51 [facility] Lymphocytes/100 WBC Auto (Un sp spec)Ordered By: Dior Candelaria on 05-17-2024 Lymphocytes/100 WBC (Bld) 19.6 % 19-41 [facility] M100.678on 05-17-2024 M100.678 Pending SARS-CoV-2 (COVID 19) Negative INFLUENZA A Negative INFLUENZA B Negative RSV PCR Negative Normal [facility] Comment on above: Performed By: #### L 3110.0500 #### [facility] [address] [place], [place], [address] Microorganism identified Cx Nom (Unsp spec)Ordered By: Nicolas Hall on 05-17-2024 Respiratory Culture Pseudomonas aeruginosa Abnormal [facility] Monocyte percentageOrdered B y: Remus Ungur on 05-17-2024 Monocytes/100 WBC (Bld) 8.1 % 0-10 [facility] Neutrophil percentageOrdered By: Remus Ungur on 05-17-2024 Neutrophils/100 WBC (Bld) 65.6 % 47-70 [facility] Nucleated red blood cell per centageOrdered By: Remus Ungur on 05-17-2024 Nucleated RBC/100 WBC (Bld) [Ratio] 0 % 0-5 [facility] Procalcitoninon 05-17-2024 Procalcitonin 0.04 ng/mL Normal 0.00-0.09 [facility] Comment on above: Result Comment: A procalcitonin [...] By: #### L 500.2500, L100.0100, L501.4020 #### [facility] [address] [place], [place], [address] Procalcitonin [Mass/Vol]Orde red By: Nicolas Hall on 05-17-2024 Procalcitonin 0.04 ng/mL 0.00-0.09 [facility] Comment on above: A procalcitonin (PCT ) [...] Troponin I High Sensitivity 8 pg/mL 3.0-78.0 [facility] Comment on above: Please Note: New Melvin t Units and Gender Specific Reference Ranges. For more information see Policy Stat Procedure [place] High Sensitivity Troponin (TNIH) and attachments. BASIC METABOLIC PANELon 05-2 Anion gap [Moles/Vol] 15 mmol/L Normal 10-20 [facility] Comment on above: Order Comment: [facility] has implemented the eGFR calculation approach that does not have a coefficient for race that conforms to the NKF-ASN Task Force Recommendations. Performed By: #### 4 5012 #### [facility] [address] [place], [place] [address] Manjit Sen, Ph.d. [id number] Calcium [Mass/Vol] 8.6 mg/dL Normal 8.4-10.2 [facility] [place] Comment on above: Order Comment: [facility] has implemented the eGFR calculation approach that does not have a coefficient for race that conforms to the NKF-ASN Task Force Recommendations. Performed By: #### 4 4731 #### [facility] [address] [place], [place] [address] Manjit Sen, Ph.d. [id number] Chloride [Moles/Vol] 99 mmol/L Normal 98-108 [facility] Comment on above: Order Comment: [facility] has implemented the eGFR calculation approach that does not have a coefficient for race that conforms to the NKF-ASN Task Force Recommendations. Performed By: #### 4 6124 #### [facility] [address] [place], [place] [address] Manjit Sen, Ph.d. [id number] Creatinine [Mass/Vol] 0.65 mg/dL Low 0.80-1.30 [facility] Comment on above: Order Comment: [facility] has implemented the eGFR calculation approach that does not have a coefficient for race that conforms to the NKF-ASN Task Force Recommendations. Performed By: #### 4 6124 #### [facility] [address] [place], [place] [address] Manjit Sen, Ph.d. [id number] EGFR 106 mL/min/1.73 m2 Normal >=60 [facility] [place] Comment on above: Order Comment: [facility] has implemented the eGFR calculation approach that does not have a coefficient for race that conforms to the NKF-ASN Task Force Recommendations. Result Comment: Clarissa mated GFR was calculated using the 2020 CKD-EPI creatinine equation. Performed By: #### 4 6109 #### [facility] [address] [place], [place] [address] Manjit Sen, Ph.d. [id number] Glucose [Mass/Vol] 188 mg/dL High 65-99 [facility] [place] Comment on above: Order Comment: [facility] has implemented the eGFR calculation approach that does not have a coefficient for race that conforms to the NKF-ASN Task Force Recommendations. Performed By: #### 4 6158 #### [facility] [address] [place], [place] [address] Manjit Sen, Ph.d. [id number] HCO3 (Bld) [Moles/Vol] 29 mmol/L Normal 21-32 [facility] [place] Comment on above: Order Comment: [facility] has implemented the eGFR calculation approach that does not have a coefficient for race that conforms to the NKF-ASN Task Force Recommendations. Performed By: #### 4 6124 #### [facility] [address] [facility] [place], [place] [address] Manjit Sen, Ph.d. [id number] Potassium [Moles/Vol] 4.4 mmol/L Normal 3.5-5.1 [facility] Comment on above: Order Comment: [facility] has implemented the eGFR calculation approach that does not have a coefficient for race that conforms to the NKF-ASN Task Force Recommendations. Performed By: #### 4 [id number] #### [facility] [address] [place] [address] Manjit Sen, Ph.d. [id number] Sodium [Moles/Vol] 139 mmol/L Normal 135-145 [facility] [place] Comment on above: Order Comment: [facility] has implemented the eGFR calculation approach that does not have a coefficient for race that conforms to the NKF-ASN Task Force Recommendations. Performed By: #### 4 [id number] #### [facility] [address] [place] [address] Manjit Sen, Ph.d. [id number] Urea nitrogen [Mass/Vol] 9 mg/dL Normal 8-25 [facility] [place] Comment on above: Order Comment: [facility] has implemented the eGFR calculation approach that does not have a coefficient for race that conforms to the NKF-ASN Task Force Recommendations. Performed By: #### 4 [id number] #### [facility] [address] [place], [place] [address] Manjit Sen, Ph.d. [phone] Urea nitrogen/Creatinine [Mass ratio] 13.8 mg/mg Normal 10.0-20.0 [facility] [place] Comment on above: Order Comment: [facility] has implemented the eGFR calculation approach that does not have a coefficient for race that conforms to the NKF-ASN Task Force Recommendations. Performed By: #### 4 [id number] #### [facility] [address] [place], [place] [address] Manjit Sen, Ph.d. [phone] CBC WITH AUTO DIFFERENTIALon 10-31-2023 AUTO NRBC 0.0 % Normal [facility] [place] Comment on above: Performed By: #### L [id number] #### [facility] [address] [place] [address] Manjit Sen, Ph.d. [id number] AUTO NRBC ABS COUNT 0.00 K/mcL Normal 0.00-0.00 [facility] [place] Comment on above: Performed By: #### L [id number] #### [facility] [address] [place] [address] Manjit Sen, Ph.d. [id number] BASOPHILS ABSOLUTE COUNT 0.01 K/mcL Normal 0.00-0.30 [facility] [place] Comment on above: Performed By: #### L [id number] #### [facility] [address] [place], [place] [address] Manjit Sen, Ph.d. [phone] Basophils/100 WBC (Bld) 0.1 % Normal [facility] [place] Comment on above: Performed By: #### L [id number] #### [facility] [address] [place] [address] Manjit Sen, Ph.d. [id number] Eosinophils (Bld) [#/Vol] 0.00 10*3/uL Normal 0.00-0.50 [facility] [place] Comment on above: Performed By: #### L [id number] #### [facility] [address] [place], [place] [address] Manjit Sen, Ph.d. [id number] Eosinophils/100 WBC (Bld) 0.0 % Normal [facility] [place] Comment on above: Performed By: #### L [id number] #### [facility] [address] [place], [place] [address] Manjit Sen, Ph.d. [id number] Erythrocyte distribution width (RBC) [Ratio] 13.5 % Normal 11.6-14.8 [facility] [place] Comment on above: Performed By: #### L [id number] #### [facility] [place] [address] Manjit Sen, Ph.d. [id number] Hematocrit (Bld) [Volume fraction] 46.7 % Normal 41.0-53.0 [facility] [place] Comment on above: Performed By: #### L [id number] #### [facility] [address] [place] [address] [facility], Ph.d. [phone] Hemoglobin (Bld) [Mass/Vol] 14.7 g/dL Normal 13.5-17.5 [facility] [place] Comment on above: Performed By: #### L [id number] #### [facility] [address] [place] [address] [facility], Ph.d. [id number] IG ABSOLUTE 0.06 K/mcL Normal 0.00-0.30 [facility] [place] Comment on above: Performed By: #### L [id number] #### [facility] [address] [place] [address] [facility], Ph.d. [id number] IG PERCENT 0.70 % Normal [facility] [place] Comment on above: Result Comment: The IG parameter is the percentage of metamyelocytes, myelocytes and promyelocytes. An immature granulocyte count (IG) of 1% or more suggests the possibility of infection, an IG count of 3% is very likely related to an infection. Performed By: #### L [id number] #### [facility] [address] [place] [address] [facility], Ph.d. [id number] Lymphocytes (Bld) [#/Vol] 0.61 10*3/uL Low 0.90-4.00 [facility] [place] Comment on above: Performed By: #### L [id number] #### [facility] [address] [place] [address] [facility], Ph.d. [id number] Lymphocytes/100 WBC (Bld) 6.9 % Normal [facility] [place] Comment on above: Performed By: #### L [id number] #### [facility] [address] [place], [place] [address] Manjit Sen, Ph.d. [id number] MCH (RBC) [Entitic mass] 30.5 pg Normal 26.0-34.0 [facility] [place] Comment on above: Performed By: #### L [id number] #### [facility] [address] [place], [place] [address] Manjit Sen, Ph.d. [id number] MCV (RBC) [Entitic vol] 96.9 fL Normal 80.0-100.0 [facility] [place] Comment on above: Performed By: #### L [id number] #### [facility] [address] [place] [id number] Manjit Sen, Ph.d. [id number] MEAN CORPUSCULAR HEMOGLOBIN CONC 31.5 g/dL Normal 31.0-37.0 [facility] [place] Comment on above: Performed By: #### L [id number] #### [facility] [address] [place], [place] [address] Manjit Sen, Ph.d. [id number] Monocytes (Bld) [#/Vol] 0.25 10*3/uL Low 0.30-0.90 [facility] [place] Comment on above: Performed By: #### L [id number] #### [facility] [address] [place], [place] [address] Manjit Sen, Ph.d. [id number] Monocytes/100 WBC (Bld) 2.8 % Normal [facility] [place] Comment on above: Performed By: #### L [id number] #### [facility] [address] [place] [id number] Manjit Sen, Ph.d. [id number] NEUTROPHILS ABSOLUTE COUNT 7.87 K/mcL High 1.70-7.00 [facility] [place] Comment on above: Performed By: #### L [id number] #### [facility] [address] [place] [address] Manjit Sen, Ph.d. [id number] Neutrophils/100 WBC (Bld) 89.5 % Normal [facility] [place] Comment on above: Performed By: #### L [id number] #### [facility] [address] [place], [place] [address] Manjit Sen, Ph.d. [id number] Platelet mean volume (Bld) [Entitic vol] 9.4 fL Normal 9.4-12.4 [facility] [place] Comment on above: Performed By: #### L [id number] #### [facility] [address] [place] [id number] Manjit Sen, Ph.d. [id number] Platelets (Bld) [#/Vol] 254 10*3/uL Normal 150-400 [facility] [place] Comment on above: Performed By: #### L [id number] #### [facility] [address] [place] [address] Manjit Sen, Ph.d. [id number] RBC (Bld) [#/Vol] 4.82 10*6/uL Normal 4.50-5.90 [facility] [place] Comment on above: Performed By: #### L [id number] #### [facility] [address] [place], [place] [address] Manjit Sen, Ph.d. [id number] WBC (Bld) [#/Vol] 8.80 10*3/uL Normal 4.50-11.00 [facility] [place] Comment on above: Performed By: #### L [id number] #### [facility] [address] [place], [place] [address] Manjit Sen, Ph.d. [id number] CBC,PLATELETSon 10-31-2023 Erythrocyte distribution width (RBC) [Ratio] 13.5 % 10.9 - 14.3 % [facility] Hematocrit (Bld) [Volume fraction] 42.9 % 39.6 - 48.8 % [facility] Hemoglobin (Bld) [Mass/Vol] 13.6 g/dL 13.4 - 16.8 g/dL [facility] Interpretation and review of laboratory results Abnormal [facility] MCH (RBC) [Entitic mass] 30.4 pg 26.1 - 33.3 pg [facility] MCHC (RBC) [Mass/Vol] 31.7 g/dL Low 31.9 - 36.5 g/dL [facility] MCV (RBC) [Entitic vol] 96.0 fL High 79.0 - 94.5 fL [facility] Platelet mean volume (Bld) [Entitic vol] 9.6 fL 8.7 - 12.3 fL [facility] Platelets (Bld) [#/Vol] 233 10*3/uL 146 - 337 K/uL [facility] RBC (Bld) [#/Vol] 4.47 10*6/uL [facility] WBC (Bld) [#/Vol] 9.08 10*3/uL 3.73 - 10. 10 K/uL [facility] Hematocrit (Bld) [Volume fraction] 42.9 % Normal 39.6-48.8 [facility] Comment on above: Performed By: #### H [facility] #### [facility] (DEFAULT) [address] [address] Hemoglobin (Bld) [Mass/Vol] 13.6 g/dL Normal 13.4-16.8 [facility] Comment on above: Performed By: #### H [facility] #### [facility] (DEFAULT) [address] [place] [address] MCV (RBC) [Entitic vol] 96.0 fL High 79.0-94.5 [facility] Comment on above: Performed By: #### H EMO #### [facility] (DEFAULT) [address] [place] [address] 17520 Mean Cell Hgb 30.4 pg Normal 26.1-33.3 [facility] Comment on above: Performed By: #### H EMO #### [facility] (DEFAULT) [address] [place] [address] 67850 Mean Cell Hgb Conc 31.7 g/dL Low 31.9-36.5 [facility] Comment on above: Performed By: #### H EMO #### [facility] (DEFAULT) [address] [place] [address] Platelet mean volume (Bld) [Entitic vol] 9.6 fL Normal 8.7-12.3 [facility] Comment on above: Performed By: #### H EMOGC #### [facility] (DEFAULT) [address] [place] [address] Platelets (Bld) [#/Vol] 233 10*3/uL Normal 146-337 [facility] Comment on above: Performed By: #### H EMO #### [facility] (DEFAULT) [address] [place] [address] RBC (Bld) [#/Vol] 4.47 10*6/uL Normal 4.38-5.83 [facility] Comment on above: Performed By: #### H [facility] #### [facility] (DEFAULT) [address] [place] [address] 609[address] RBC Distribution 13.5 % Normal 10.9-14.3 [facility] Comment on above: Performed By: #### H EMO #### [facility] (DEFAULT) [address] [place] [address] WBC (Bld) [#/Vol] 9.08 10*3/uL Normal 3.73-10.10 [facility] Comment on above: Performed By: #### H EMO #### [facility] (DEFAULT) [address] [place] [address] CHEM 7 (LYTES,BUN,CREA,GLUC) on 10-31-2023 Anion gap [Moles/Vol] 14 mmol/L 7 - 17 mmol/L [facility] Chloride [Moles/Vol] 99 mmol/L 98 - 10 8 mmol/L [facility] CO2 [Moles/Vol] 33 mmol/L High 21 - 31 mmol/L [facility] Creatinine [Mass/Vol] 0.71 mg/dL 0.70 - 1.30 mg/dL [facility] eGFR, CKD-EPI, Male - PINF [facility] Comment on above: Reported eGFR is bas ed on the CKD-EPI 2020 equation using creatinine, age, and sex. Glucose [Mass/Vol] 148 mg/dL High 70 - 99 mg/dL [facility] Interpretation and review of laboratory results Abnormal [facility] Osmolality Calc [Osmolality] 299 [facility] Potassium [Moles/Vol] 3.7 mmol/L 3.5 - 5.0 mmol/L [facility] Sodium [Moles/Vol] 142 mmol/L 135 - 145 mmol/L [facility] Urea nitrogen [Mass/Vol] 12 mg/dL 7 - 25 mg/dL [facility] Urea nitrogen/Creatinine [Mass ratio] 17 mg/mg [facility] Anion gap [Moles/Vol] 14 mmol/L Normal 7-17 [facility] Comment on above: Performed By: #### DAXA VALDES, IPB #### [facility] (DEFAULT) [address] [place] [address] Chloride [Moles/Vol] 99 mmol/L Normal 98-108 [facility] Comment on above: Performed By: #### DAXA VALDES, IPB #### [facility] (DEFAULT) [address] [place] [address] CO2 [Moles/Vol] 33 mmol/L High 21-31 [facility] Comment on above: Performed By: #### DAXA VALDES, IPB #### [facility] (DEFAULT) [address] [place] [address] Creatinine [Mass/Vol] 0.71 mg/dL Normal 0.70-1.30 [facility] Comment on above: Performed By: #### DAXA VALDES, IPB #### [facility] (DEFAULT) [address] [place] [address] eGFR, CKD-EPI, Male > Normal >=60 [facility] Comment on above: Result Comment: Repo rted eGFR is based on the CKD-EPI 2020 equation using creatinine, age, and sex. Performed By: #### DAXA VALDES, IPB #### [facility] (DEFAULT) [address] [place] [address] Glucose [Mass/Vol] 148 mg/dL High 70-99 [facility] Comment on above: Performed By: #### DAXA VALDES, IPB #### [facility] (DEFAULT) [address] [place] [address] Osmolality [Osmolality] 299 mosm/kg Normal 278-305 [facility] Comment on above: Performed By: #### DAXA VALDES, IPB #### [facility] (DEFAULT) [address] [place] [address] Potassium [Moles/Vol] 3.7 mmol/L Normal 3.5-5.0 [facility] Comment on above: Performed By: #### DAXA VALDES, IPB #### [facility] (DEFAULT) [address] [place] [address]298 Sodium [Moles/Vol] 142 mmol/L Normal 135-145 [facility] Comment on above: Performed By: #### DAXA VALDES, IPB #### [facility] (DEFAULT) [address] [place] [address] Urea nitrogen [Mass/Vol] 12 mg/dL Normal 7-25 [facility] Comment on above: Performed By: #### DAXA VALDES, IPB #### [facility] (DEFAULT) [address] [place] [address] Urea nitrogen/Creatinine [Mass ratio] 17 mg/mg Normal [facility] Comment on above: Performed By: #### MG KEISHAO, IPB #### [facility] (DEFAULT) [address] [place] [address] MAGNESIUMon 10-31-2023 Magnesium [Mass/Vol] 1.8 mg/dL 1.6 - 2 .6 mg/dL [facility] Magnesium [Mass/Vol] 1.8 mg/dL Normal 1.6-2.6 [facility] Comment on above: Performed By: #### C DAXA SPEARS IPB #### [facility] (DEFAULT) [address] [place] [address] No Panel Informationon 10-30 Interpretation and review of laboratory results Normal [facility] PHOSPHATE, INORGANICon 10-30 Phosphate [Mass/Vol] 3.2 mg/dL 2.2 - 4 .6 mg/dL [facility] Phosphorous 3.2 mg/dL Normal 2.2-4.6 [facility] Comment on above: Performed By: #### C DAXA SPEARS, BHAKTIB #### [facility] (DEFAULT) [address] [place], [place] [id number] CBC,PLATELETSon 10-30-2023 Erythrocyte distribution width (RBC) [Ratio] 13.7 % 10.9 - 14.3 % [facility] Hematocrit (Bld) [Volume fraction] 42.2 % 39.6 - 48.8 % [facility] Hemoglobin (Bld) [Mass/Vol] 13.4 g/dL 13.4 - 16.8 g/dL [facility] Interpretation and review of laboratory results Abnormal [facility] MCH (RBC) [Entitic mass] 30.7 pg 26.1 - 33.3 pg [facility] MCHC (RBC) [Mass/Vol] 31.8 g/dL Low 31.9 - 36.5 g/dL [facility] MCV (RBC) [Entitic vol] 96.6 fL High 79.0 - 94.5 fL [facility] Platelet mean volume (Bld) [Entitic vol] 9.7 fL 8.7 - 12.3 fL [facility] Platelets (Bld) [#/Vol] 183 10*3/uL 146 - 337 K/uL [facility] RBC (Bld) [#/Vol] 4.37 10*6/uL Low [facility] WBC (Bld) [#/Vol] 6.36 10*3/uL 3.73 - 10. 10 K/uL [facility] Hematocrit (Bld) [Volume fraction] 42.2 % Normal 39.6-48.8 [facility] Comment on above: Performed By: #### DAXA VALDES, IPB #### [facility] (DEFAULT) [address] [place] [address] Hemoglobin (Bld) [Mass/Vol] 13.4 g/dL Normal 13.4-16.8 [facility] Comment on above: Performed By: #### DAXA VALDES, IPB #### [facility] (DEFAULT) [address] [place] [address] MCV (RBC) [Entitic vol] 96.6 fL High 79.0-94.5 [facility] Comment on above: Performed By: #### DAXA VALDES, IPB #### [facility] (DEFAULT) [address] [place] [address] 81368 Mean Cell Hgb 30.7 pg Normal 26.1-33.3 [facility] Comment on above: Performed By: #### Karyn SPEARS MGAdi, IPB #### [facility] (DEFAULT) [address] [place] [address] 52030 Mean Cell Hgb Conc 31.8 g/dL Low 31.9-36.5 [facility] Comment on above: Performed By: #### Karyn SPEARS MGO, IPB #### [facility] (DEFAULT) [address] [place] [address] 45425 Platelet mean volume (Bld) [Entitic vol] 9.7 fL Normal 8.7-12.3 [facility] Comment on above: Performed By: #### Karyn SPEARS MGO, IPB #### [facility] (DEFAULT) [address] [place] [address] 299[address] Platelets (Bld) [#/Vol] 183 10*3/uL Normal 146-337 [facility] Comment on above: Performed By: #### C HM7, MGO, IPB #### [facility] (DEFAULT) [address] [place] [address]6466 RBC (Bld) [#/Vol] 4.37 10*6/uL Low 4.38-5.83 [facility] Comment on above: Performed By: #### Karyn HM7, MGO, IPB #### [facility] (DEFAULT) [address] [place] [address]142 RBC Distribution 13.7 % Normal 10.9-14.3 [facility] Comment on above: Performed By: #### Karyn HM7, MGO, IPB #### [facility] (DEFAULT) [address] [place] [address]9078 WBC (Bld) [#/Vol] 6.36 10*3/uL Normal 3.73-10.10 [facility] Comment on above: Performed By: #### Karyn HM7, MGO, IPB #### [facility] (DEFAULT) [address] [place] [address]403 CHEM 7 (LYTES,BUN,CREA,GLUC) Ordered By: Nabeel Salgado on 10-30-2023 Anion gap [Moles/Vol] 11 mmol/L 7 - 17 mmol/L [facility] Chloride [Moles/Vol] 103 mmol/L 98 - 10 8 mmol/L [facility] CO2 [Moles/Vol] 34 mmol/L High 21 - 31 mmol/L [facility] Creatinine [Mass/Vol] 0.71 mg/dL 0.70 - 1.30 mg/dL [facility] eGFR, CKD-EPI, Male - PINF [facility] Comment on above: Reported eGFR is bas ed on the CKD-EPI 2020 equation using creatinine, age, and sex. Glucose [Mass/Vol] 128 mg/dL High 70 - 99 mg/dL [facility] Interpretation and review of laboratory results Abnormal [facility] Osmolality Calc [Osmolality] 302 [facility] Potassium [Moles/Vol] 4.0 mmol/L 3.5 - 5.0 mmol/L [facility] Sodium [Moles/Vol] 144 mmol/L 135 - 145 mmol/L [facility] Urea nitrogen [Mass/Vol] 13 mg/dL 7 - 25 mg/dL [facility] Urea nitrogen/Creatinine [Mass ratio] 18 mg/mg [facility] CHEM 7 (LYTES,BUN,CREA,GLUC) on 10-30-2023 Anion gap [Moles/Vol] 11 mmol/L Normal 7-17 [facility] Comment on above: Performed By: #### DAXA VALDES, IPB #### [facility] (DEFAULT) [address] [place] [address]3876 Chloride [Moles/Vol] 103 mmol/L Normal 98-108 [facility] Comment on above: Performed By: #### Karyn SPEARS MGO, IPB #### [facility] (DEFAULT) [address] [place] [address] 16137 CO2 [Moles/Vol] 34 mmol/L High 21-31 [facility] Comment on above: Performed By: #### Karyn HMAda MGO, IPB #### [facility] (DEFAULT) [address] [place] [address]209 Creatinine [Mass/Vol] 0.71 mg/dL Normal 0.70-1.30 [facility] Comment on above: Performed By: #### Karyn SPEARS MGAdi, IPB #### [facility] (DEFAULT) [address] [place] [address] 27093 eGFR, CKD-EPI, Male > Normal >=60 [facility] Comment on above: Result Comment: Repo rted eGFR is based on the CKD-EPI 2020 equation using creatinine, age, and sex. Performed By: #### C HM7, MGO, IPB #### [facility] (DEFAULT) [address] [place] [address] 97669 Glucose [Mass/Vol] 128 mg/dL High 70-99 [facility] Comment on above: Performed By: #### Karyn HM7, MGO, IPB #### [facility] (DEFAULT) [address] [place] [address] 78277 Osmolality [Osmolality] 302 mosm/kg Normal 278-305 [facility] Comment on above: Performed By: #### Karyn HM7, MGO, IPB #### [facility] (DEFAULT) [address] [place] [address] 60976 Potassium [Moles/Vol] 4.0 mmol/L Normal 3.5-5.0 [facility] Comment on above: Performed By: #### Karyn HMAda MGO, IPB #### [facility] (DEFAULT) [address] [place] [address] 08135 Sodium [Moles/Vol] 144 mmol/L Normal 135-145 [facility] Comment on above: Performed By: #### Karyn SPEARS MGO, IPB #### [facility] (DEFAULT) [address] [place] [address] 71460 Urea nitrogen [Mass/Vol] 13 mg/dL Normal 7-25 [facility] Comment on above: Performed By: #### Karyn HMAda, MGO, IPB #### [facility] (DEFAULT) [address] [place] [address] 38760 Urea nitrogen/Creatinine [Mass ratio] 18 mg/mg Normal [facility] Comment on above: Performed By: #### Karyn HM7, MGO, IPB #### [facility] (DEFAULT) [address] [place] [address] 55768 MAGNESIUMon 10-30-2023 Magnesium [Mass/Vol] 2.0 mg/dL 1.6 - 2 .6 mg/dL [facility] Magnesium [Mass/Vol] 2.0 mg/dL Normal 1.6-2.6 [facility] Comment on above: Performed By: #### C ERGAN, DAXA, IPB #### [facility] (DEFAULT) [address] [place] [address] 39916 No Panel Informationon 10-29 Interpretation and review of laboratory results Normal [facility] PHOSPHATE, INORGANICon 10-29 Phosphate [Mass/Vol] 2.7 mg/dL 2.2 - 4 .6 mg/dL [facility] Phosphorous 2.7 mg/dL Normal 2.2-4.6 [facility] Comment on above: Performed By: #### C REGAN, ADXA, IPB #### [facility] (DEFAULT) [address] [place] [address] 24038 VENOUS BLOOD GASon Base excess Calc (Bld) [Moles/Vol] 12.5 mmol/L High -3.0 - 3.0 mmol/L [facility] CO2 (Bld) [Partial pressure] 57 mm[Hg] High [facility] HCO3 (Bld) [Moles/Vol] 37 mmol/L High 22 - 29 mmol/L [facility] Interpretation and review of laboratory results Abnormal [facility] Oxygen (Bld) [Partial pressure] 60 mm[Hg] mm Hg [facility] Comment on above: Venous pO2 is not re commended for the evaluation of oxygen status, clinical correlation is recommended. Oxygen saturation in Blood 92 % High 70 - 80 % [facility] pH (Bld) 7.42 [pH] 7.32 - 7.43 [facility] Specimen source Nom (Unsp spec) Venous [facility] Base Excess 12.5 mmol/L High -3.0-3.0 [facility] Comment on above: Performed By: #### G ASV5 #### [facility] (DEFAULT) [address] [place] [address] 45473 HCO3 (Bld) [Moles/Vol] 37 mmol/L High 22-29 [facility] Comment on above: Performed By: #### G ASV5 #### [facility] (DEFAULT) [address] [place] [address] 72758 Oxygen saturation in Blood 92 % High 70-80 [facility] Comment on above: Performed By: #### G ASV5 #### [facility] [facility] (DEFAULT) [address] [place] [address] 87352 pCO2, Venous 57 mm Hg High 36-52 [facility] Comment on above: Performed By: #### G ASV5 #### [facility] (DEFAULT) [address] [place] [address] 55244 pH, Venous 7.42 Normal 7.32-7.43 [facility] Comment on above: Performed By: #### G ASV5 #### [facility] (DEFAULT) [address] [place] [address] 55505 pO2, Venous 60 mm Hg Normal [facility] Comment on above: Result Comment: Veno us pO2 is not recommended for the evaluation of oxygen status, clinical correlation is recommended. Performed By: #### G ASV5 #### [facility] (DEFAULT) [address] [place] [address] 63727 Specimen type Nom (Spec) Venous Normal [facility] Comment on above: Performed By: #### G ASV5 #### [facility] (DEFAULT) [address] [place] [address] 83015 B-TYPE NATRIURETIC PEPTIDE ( BRAIN)on 10-29-2023 Interpretation and review of laboratory results Normal [facility] Natriuretic peptide B (Bld) [Mass/Vol] 12 pg/mL 0 - 100 pg/mL [facility] Natriuretic peptide B (Bld) [Mass/Vol] 12 pg/mL Normal 0-100 [facility] Comment on above: Order Comment: If hi story of congestive heart failure. Performed By: #### B SALON COORDINATOR #### [facility] (DEFAULT) [address] [place] [address] 91875 CBC AND ELECTRONIC DIFFon 05 -23-2024 Basophils (Bld) [#/Vol] 0.04 10*3/uL 0.00 - 0.09 K/uL [facility] Basophils/100 WBC (Bld) 0.5 % [facility] Differential cell count method Nom (Bld) Electronic Differential [facility] Eosinophils (Bld) [#/Vol] K/uL 0.00 - 0.48 K/uL [facility] Eosinophils/100 WBC (Bld) 0.2 % [facility] Erythrocyte distribution width (RBC) [Ratio] 13.6 % 10.9 - 14.3 % [facility] Hematocrit (Bld) [Volume fraction] 49.6 % High 39.6 - 48.8 % [facility] Hemoglobin (Bld) [Mass/Vol] 15.9 g/dL 13.4 - 16.8 g/dL [facility] Immature granulocytes (Bld) [#/Vol] K/uL NINF - 0.07 K/uL [facility] Immature granulocytes/100 WBC (Bld) 0.2 % [facility] Interpretation and review of laboratory results Abnormal [facility] Lymphocytes (Bld) [#/Vol] 1.00 10*3/uL 0.83 - 3.57 K/uL [facility] Lymphocytes/100 WBC (Bld) 11.5 % [facility] MCH (RBC) [Entitic mass] 30.5 pg 26.1 - 33.3 pg [facility] MCHC (RBC) [Mass/Vol] 32.1 g/dL 31.9 - 36.5 g/dL [facility] MCV (RBC) [Entitic vol] 95.0 fL High 79.0 - 94.5 fL [facility] Monocytes (Bld) [#/Vol] 0.69 10*3/uL 0.24 - 0.93 K/uL [facility] Monocytes/100 WBC (Bld) 7.9 % [facility] Neutrophils (Bld) [#/Vol] 6.91 10*3/uL High 1.57 - 6.19 K/uL [facility] Nucleated RBC/100 WBC (Bld) [Ratio] 0.0 % NINF [facility] Platelet mean volume (Bld) [Entitic vol] 9.5 fL 8.7 - 12.3 fL [facility] Platelets (Bld) [#/Vol] 195 10*3/uL 146 - 337 K/uL [facility] RBC (Bld) [#/Vol] 5.22 10*6/uL [facility] Segmented neutrophils/100 WBC (Bld) 79.7 % [facility] WBC (Bld) [#/Vol] 8.68 10*3/uL 3.73 - 10. 10 K/uL [facility] Abs Eos Auto < Normal 0.00-0.48 [facility] Comment on above: Performed By: #### L [id number] #### [facility] (DEFAULT) [address] [place] [address] 96886 Basophils (Bld) [#/Vol] 0.04 10*3/uL Normal 0.00-0.09 [facility] Comment on above: Performed By: #### L [id number] #### [facility] (DEFAULT) [address] [place] [address] 28356 Basophils/100 WBC (Bld) 0.5 % Normal [facility] Comment on above: Performed By: #### L [id number] #### [facility] (DEFAULT) [address] [place] [address] 14664 DIFF STATUS Electronic Differential Normal [facility] Comment on above: Performed By: #### L [id number] #### [facility] (DEFAULT) [address] [place] [address] 02833 Eosinophils/100 WBC (Bld) 0.2 % Normal [facility] Comment on above: Performed By: #### L [id number] #### [facility] (DEFAULT) [address] [place] [address] 66534 Hematocrit (Bld) [Volume fraction] 49.6 % High 39.6-48.8 [facility] Comment on above: Performed By: #### L [id number] #### [facility] (DEFAULT) [address] [address] Hemoglobin (Bld) [Mass/Vol] 15.9 g/dL Normal 13.4-16.8 [facility] Comment on above: Performed By: #### L AB980 #### [facility] (DEFAULT) [address] [address] Immature Grans % 0.2 % Normal [facility] Comment on above: Performed By: #### L AB980 #### [facility] (DEFAULT) [address] [address] Immature Grans Absolute < Normal <=0.07 [facility] Comment on above: Performed By: #### L [id number] #### [facility] (DEFAULT) [address] [address] Lymphocytes (Bld) [#/Vol] 1.00 10*3/uL Normal 0.83-3.57 [facility] Comment on above: Performed By: #### L AB980 #### [facility] (DEFAULT) [address] [address] Lymphocytes/100 WBC (Bld) 11.5 % Normal [facility] Comment on above: Performed By: #### L [id number] #### [facility] (DEFAULT) [address] [address] MCV (RBC) [Entitic vol] 95.0 fL High 79.0-94.5 [facility] Comment on above: Performed By: #### L AB980 #### [facility] (DEFAULT) [address] [address] Mean Cell Hgb 30.5 pg Normal 26.1-33.3 [facility] Comment on above: Performed By: #### L AB980 #### [facility] (DEFAULT) [address] [place] [address] 68914 Mean Cell Hgb Conc 32.1 g/dL Normal 31.9-36.5 [facility] Comment on above: Performed By: #### L AB980 #### [facility] (DEFAULT) [address] [place] [address] 63352 Monocytes (Bld) [#/Vol] 0.69 10*3/uL Normal 0.24-0.93 [facility] Comment on above: Performed By: #### L AB980 #### [facility] (DEFAULT) [address] [place] [address] 18129 Monocytes/100 WBC (Bld) 7.9 % Normal [facility] Comment on above: Performed By: #### L [id number] #### [facility] (DEFAULT) [address] [place] [address] 99226 Nucleated RBC 0.0 /100 WBC Normal <=0.2 [facility] Comment on above: Performed By: #### L [id number] #### [facility] (DEFAULT) [address] [place] [address] 81368 Platelet mean volume (Bld) [Entitic vol] 9.5 fL Normal 8.7-12.3 [facility] Comment on above: Performed By: #### L AB980 #### [facility] (DEFAULT) [address] [address] Platelets (Bld) [#/Vol] 195 10*3/uL Normal 146-337 [facility] Comment on above: Performed By: #### L AB980 #### [facility] (DEFAULT) [address] [address] RBC (Bld) [#/Vol] 5.22 10*6/uL Normal 4.38-5.83 [facility] Comment on above: Performed By: #### L AB980 #### [facility] (DEFAULT) [address] [place] [address] 33314 RBC Distribution 13.6 % Normal 10.9-14.3 [facility] Comment on above: Performed By: #### L AB980 #### [facility] (DEFAULT) [address] [place] [address] 10520 Segs + Bands Auto 79.7 % Normal [facility] Comment on above: Performed By: #### L [id number] #### [facility] (DEFAULT) [address] [place] [address] 97775 Segs + Bands,Absolute Auto 6.91 K/uL High 1.57-6.19 [facility] Comment on above: Performed By: #### L [id number] #### [facility] (DEFAULT) [address] [address] WBC (Bld) [#/Vol] 8.68 10*3/uL Normal 3.73-10.10 [facility] Comment on above: Performed By: #### L [id number] #### [facility] (DEFAULT) [address] [place] [address] 21913 [facility] 7 - EDon 10-29-2023 Anion gap [Moles/Vol] 7 mmol/L 7 - 17 mmol/L [facility] Chloride [Moles/Vol] 99 mmol/L 98 - 10 8 mmol/L [facility] CO2 [Moles/Vol] 34 mmol/L High 21 - 31 mmol/L [facility] Creatinine [Mass/Vol] 0.82 mg/dL 0.70 - 1.30 mg/dL [facility] eGFR, CKD-EPI, Male - PINF [facility] Comment on above: Reported eGFR is bas ed on the CKD-EPI 2020 equation using creatinine, age, and sex. Glucose [Mass/Vol] 106 mg/dL High 70 - 99 mg/dL [facility] Interpretation and review of laboratory results Abnormal [facility] Osmolality Calc [Osmolality] 286 [facility] Potassium [Moles/Vol] 4.2 mmol/L 3.5 - 5.0 mmol/L [facility] Sodium [Moles/Vol] 136 mmol/L 135 - 145 mmol/L [facility] Urea nitrogen [Mass/Vol] 13 mg/dL 7 - 25 mg/dL [facility] Urea nitrogen/Creatinine [Mass ratio] 16 mg/mg [facility] Anion gap [Moles/Vol] 7 mmol/L Normal 7-17 [facility] Comment on above: Performed By: #### C 7ED #### [facility] (DEFAULT) [address] [place] [address] 39606 Chloride [Moles/Vol] 99 mmol/L Normal 98-108 [facility] Comment on above: Performed By: #### C 7ED #### [facility] (DEFAULT) [address] [place] [address] 20929 CO2 [Moles/Vol] 34 mmol/L High 21-31 [facility] Comment on above: Performed By: #### Karyn 7ED #### [facility] (DEFAULT) [address] [place] [address] 65356 Creatinine [Mass/Vol] 0.82 mg/dL Normal 0.70-1.30 [facility] Comment on above: Performed By: #### Karyn 7ED #### [facility] (DEFAULT) [address] [place] [address] 35222 eGFR, CKD-EPI, Male > Normal >=60 [facility] Comment on above: Result Comment: Repo rted eGFR is based on the CKD-EPI 2020 equation using creatinine, age, and sex. Performed By: #### C 7ED #### [facility] (DEFAULT) [address] [place] [address] 90816 Glucose [Mass/Vol] 106 mg/dL High 70-99 [facility] Comment on above: Performed By: #### C 7ED #### [facility] (DEFAULT) [address] [place] [address] 89337 Osmolality [Osmolality] 286 mosm/kg Normal 278-305 [facility] Comment on above: Performed By: #### C 7ED #### [facility] (DEFAULT) [address] [place] [address] 11873 Potassium [Moles/Vol] 4.2 mmol/L Normal 3.5-5.0 [facility] Comment on above: Performed By: #### C 7ED #### [facility] (DEFAULT) [address] [place] [address] Sodium [Moles/Vol] 136 mmol/L Normal 135-145 [facility] Comment on above: Performed By: #### C 7ED #### [facility] (DEFAULT) [address] [place] [address] 95751 Urea nitrogen [Mass/Vol] 13 mg/dL Normal 7-25 [facility] Comment on above: Performed By: #### C 7ED #### [facility] (DEFAULT) [address] [place] [address] 30744 Urea nitrogen/Creatinine [Mass ratio] 16 mg/mg Normal [facility] Comment on above: Performed By: #### C 7ED #### [facility] (DEFAULT) [address] [place] [address] 26323 HIGH SENSITIVITY TROPONIN I - SINGLE ORDERon 10-29-2023 Interpretation and review of laboratory results Normal [facility] Troponin I.cardiac High sensitivity method [Mass/Vol] 4 ng/L NINF - 53 ng/L [facility] hs-Troponin I 4 ng/L Normal <53 [facility] Comment on above: Order Comment: If hi story of coronary heart disease. Acute Coronary Syndrome (ACS): Initial Evaluation and Management: [email or web address] Performed By: #### L ABHSTI1 #### [facility] (DEFAULT) [address] [place] [address] 49376 No Panel Informationon 10-28 [facility] Portable XR Chest Viewson IMPRESSION: I [...] a fibrotic process predominantly. No dense consolidation. [facility] Radiology Study observation (narrative) [facility] Portable XR Chest ViewsOrder ed By: Washington Godfrey on 10-29-2023 [facility] Work Phone: VENOUS BLOOD GASon Base excess Calc (Bld) [Moles/Vol] 13.0 mmol/L High -3.0 - 3.0 mmol/L [facility] CO2 (Bld) [Partial pressure] 61 mm[Hg] High [facility] HCO3 (Bld) [Moles/Vol] 38 mmol/L High 22 - 29 mmol/L [facility] Interpretation and review of laboratory results Abnormal [facility] Oxygen (Bld) [Partial pressure] 57 mm[Hg] mm Hg [facility] Comment on above: Venous pO2 is not re commended for the evaluation of oxygen status, clinical correlation is recommended. Oxygen saturation in Blood 87 % High 70 - 80 % [facility] pH (Bld) 7.40 [pH] 7.32 - 7.43 [facility] Specimen source Nom (Unsp spec) Venous [facility] Base Excess 13.0 mmol/L High -3.0-3.0 [facility] Comment on above: Performed By: #### Karyn HM7, MGO, IPB #### [facility] (DEFAULT) [address] [place] [address] 30503 HCO3 (Bld) [Moles/Vol] 38 mmol/L High 22-29 [facility] Comment on above: Performed By: #### Karyn HM7, MGO, IPB #### [facility] (DEFAULT) [address] [place] [address] 20349 Oxygen saturation in Blood 87 % High 70-80 [facility] Comment on above: Performed By: #### Karyn HM7, MGO, IPB #### [facility] (DEFAULT) [address] [place] [address] 68871 pCO2, Venous 61 mm Hg High 36-52 [facility] Comment on above: Performed By: #### Karyn HM7, MGO, IPB #### [facility] (DEFAULT) [address] [place] [address] 54001 pH, Venous 7.40 Normal 7.32-7.43 [facility] Comment on above: Performed By: #### Karyn HM7, MGO, IPB #### [facility] (DEFAULT) [address] [place] [address] 35120 pO2, Venous 57 mm Hg Normal [facility] Comment on above: Result Comment: Veno us pO2 is not recommended for the evaluation of oxygen status, clinical correlation is recommended. Performed By: #### Karyn HM7, MGO, IPB #### [facility] (DEFAULT) [address] [place] [address] 82997 Specimen type Nom (Spec) Venous Normal [facility] Comment on above: Performed By: #### Karyn HM7, MGO, IPB #### [facility] (DEFAULT) [address] [place] [address] 57491 Base Excess 11.0 mmol/L High -3.0-3.0 [facility] Comment on above: Performed By: #### DAXA VALDES, IPB #### [facility] (DEFAULT) [address] [place] [address] 92296 HCO3 (Bld) [Moles/Vol] 37 mmol/L High 22-29 [facility] Comment on above: Performed By: #### DAXA VALDES, IPB #### [facility] (DEFAULT) [address] [place] [address] 21058 Oxygen saturation in Blood 53 % Low 70-80 [facility] Comment on above: Performed By: #### DAXA VALDES, IPB #### [facility] (DEFAULT) [address] [place] [address] 16894 pCO2, Venous 74 mm Hg Critically high 36-52 [facility] Comment on above: Performed By: #### DAXA VALDES, IPB #### [facility] (DEFAULT) [address] [place] [address] 63808 pH, Venous 7.31 Low 7.32-7.43 [facility] Comment on above: Performed By: #### DAXA VALDES, IPB #### [facility] (DEFAULT) [address] [place] [address] 54922 pO2, Venous < Normal [facility] Comment on above: Result Comment: Veno us pO2 is not recommended for the evaluation of oxygen status, clinical correlation is recommended. Performed By: #### DAXA VALDES, IPB #### [facility] (DEFAULT) [address] [place] [address] 96043 Specimen type Nom (Spec) Venous Normal [facility] Comment on above: Performed By: #### Karyn TONY7, MGO, IPB #### [facility] (DEFAULT) [address] [place] [address] 94756 VENOUS BLOOD GASOrdered By: Michelle Grant on 10-29-2023 Base excess Calc (Bld) [Moles/Vol] 11.0 mmol/L High -3.0 - 3.0 mmol/L [facility] (Bld) [Partial pressure] 74 mm[Hg] [facility] HCO3 (Bld) [Moles/Vol] 37 mmol/L High 22 - 29 mmol/L [facility] Interpretation and review of laboratory results Abnormal [facility] Oxygen (Bld) [Partial pressure] mm Hg [facility] Comment on above: Venous pO2 is not re commended for the evaluation of oxygen status, clinical correlation is recommended. Oxygen saturation in Blood 53 % Low 70 - 80 % [facility] pH (Bld) 7.31 [pH] Low 7.32 - 7.43 [facility] Specimen source Nom (Unsp spec) Venous [facility] XR CHEST 1 VIEW PORTABLEon 0 [...] fibrotic process predominantly. No dense consolidation. Normal [facility] XR Chest PA and Abdomen APon 10-27-2023 [...] pulmonary parenchymal scarring. VKR/hff Workstation ID: [id number] [facility] XR Chest PA and Abdomen APOr dered By: Nancy Bowie on 10-27-2023 [facility] Work Phone: BASIC METABOLIC PANELon 10-07 Anion gap [Moles/Vol] 15 mmol/L Normal 10-20 [facility] Comment on above: Order Comment: [facility] has implemented the eGFR calculation approach that does not have a coefficient for race that conforms to the NKF-ASN Task Force Recommendations. Performed By: #### 0 [id number] #### [facility] [address] [place] [address] Kvng William M.D. [id number] Calcium [Mass/Vol] 8.8 mg/dL Normal 8.4-10.2 [facility] Comment on above: Order Comment: [facility] has implemented the eGFR calculation approach that does not have a coefficient for race that conforms to the NKF-ASN Task Force Recommendations. Performed By: #### 4 6124 #### [facility] [address] [place] [address] Kvng William M.D. [id number] Chloride [Moles/Vol] 100 mmol/L Normal 98-108 [facility] Comment on above: Order Comment: [facility] has implemented the eGFR calculation approach that does not have a coefficient for race that conforms to the NKF-ASN Task Force Recommendations. Performed By: #### 4 6124 #### [facility] [address] [place], [place] [address] Kvng William M.D. [id number] Creatinine [Mass/Vol] 0.77 mg/dL Low 0.80-1.30 [facility] Comment on above: Order Comment: [facility] has implemented the eGFR calculation approach that does not have a coefficient for race that conforms to the NKF-ASN Task Force Recommendations. Performed By: #### 4 6124 #### [facility] [address] [place] [address] 91843 Kvng William M.D. [id number] EGFR 101 mL/min/1.73 m2 Normal >=60 [facility] Comment on above: Order Comment: [facility] has implemented the eGFR calculation approach that does not have a coefficient for race that conforms to the NKF-ASN Task Force Recommendations. Result Comment: Clarissa mated GFR was calculated using the 2020 CKD-EPI creatinine equation. Performed By: #### 4 6124 #### [facility] [address] [place] [address] 89169 Kvng William M.D. [id number] Glucose [Mass/Vol] 105 mg/dL High 65-99 [facility] Comment on above: Order Comment: [facility] has implemented the eGFR calculation approach that does not have a coefficient for race that conforms to the NKF-ASN Task Force Recommendations. Performed By: #### 4 6124 #### [facility] [address] [place] [address] 64658 Kvng William M.D. [id number] HCO3 (Bld) [Moles/Vol] 30 mmol/L Normal 21-32 [facility] Comment on above: Order Comment: [facility] has implemented the eGFR calculation approach that does not have a coefficient for race that conforms to the NKF-ASN Task Force Recommendations. Performed By: #### 4 6124 #### [facility] [address] [place] [address] Kvng William M.D. [id number] Potassium [Moles/Vol] 4.5 mmol/L Normal 3.5-5.1 [facility] Comment on above: Order Comment: [facility] has implemented the eGFR calculation approach that does not have a coefficient for race that conforms to the NKF-ASN Task Force Recommendations. Result Comment: Slig htly Hemolyzed Performed By: #### 4 [id number] #### [facility] [address] [place] [address] Kvng William M.D. [id number] Sodium [Moles/Vol] 140 mmol/L Normal 135-145 [facility] Comment on above: Order Comment: [facility] has implemented the eGFR calculation approach that does not have a coefficient for race that conforms to the NKF-ASN Task Force Recommendations. Performed By: #### 4 6124 #### [facility] [address] [place] [address] 324[address] Kvng William M.D. [id number] Urea nitrogen [Mass/Vol] 16 mg/dL Normal 8-25 [facility] Comment on above: Order Comment: [facility] has implemented the eGFR calculation approach that does not have a coefficient for race that conforms to the NKF-ASN Task Force Recommendations. Performed By: #### 4 6124 #### [facility] [address] [place] [address] 86220 Kvng William M.D. [id number] Urea nitrogen/Creatinine [Mass ratio] 20.8 mg/mg High 10.0-20.0 [facility] Comment on above: Order Comment: [facility] has implemented the eGFR calculation approach that does not have a coefficient for race that conforms to the NKF-ASN Task Force Recommendations. Performed By: #### 4 [id number] #### [facility] [address] [place] [address]408 Kvng William M.D. [id number] BLOOD GAS, VENOUSon 10-26-19 24 BASE EXCESS, VENOUS 3.7 High -2.0-2.0 [facility] Comment on above: Performed By: #### 4 6733 #### [facility] [address] [place] [address] 77824Edvin William M.D. [id number] HCO3 (Bld) [Moles/Vol] 33.3 mmol/L High 24.0-28.0 [facility] Comment on above: Performed By: #### 4 6733 #### [facility] [address] [place] [address] 217[address]Edvin William M.D. [id number] Hematocrit (Bld) [Volume fraction] 49.6 % Normal 41.0-53.0 [facility] Comment on above: Performed By: #### 4 6746 #### [facility] [address] [place] [address] 46751 Kvng William M.D. [id number] Hemoglobin (Bld) [Mass/Vol] 16.2 g/dL Normal 13.5-17.5 [facility] Comment on above: Performed By: #### 4 6766 #### [facility] [address] [place], [place] [address]Digna AbreuD. [id number] Oxygen saturation in Blood 93.1 % High 40.0-70.0 [facility] Comment on above: Performed By: #### 4 6733 #### [facility] [address] [place], [place] [address] Kvng William M.D. [id number] PCO2 VENOUS 73.6 mm Hg High 41.0-51.0 [facility] Comment on above: Performed By: #### 4 6733 #### [facility] [address] [place] [address] Kvng William M.D. [id number] PH VENOUS 7.28 Low 7.32-7.42 [facility] Comment on above: Performed By: #### [id number] #### [facility] [address] [place], [place] [address] Kvng William M.D. [id number] PO2 VENOUS 72 mm Hg High 25-40 [facility] Comment on above: Performed By: #### 4 [id number] #### [facility] [address] [place], [place] [address] Kvng William M.D. [id number] Basic metabolic 2000 panelOr dered By: Jocelyne Lynn on 10-26-2023 Anion gap [Moles/Vol] 15 mmol/L 10 - 2 0 mmol/L [facility] Calcium [Mass/Vol] 8.8 mg/dL 8.4 - 10. 2 mg/dL [facility] Chloride [Moles/Vol] 100 mmol/L 98 - 10 8 mmol/L [facility] Creatinine [Mass/Vol] 0.77 mg/dL Low 0.80 - 1.30 mg/dL [facility] GFR/1.73 sq M.predicted CKD-EPI (S/P/Bld) [Vol rate/Area] 101 - PINF [facility] Comment on above: Estimated GFR was ca lculated using the 2020 CKD-EPI creatinine equation. Glucose [Mass/Vol] 105 mg/dL High 65 - 99 mg/dL [facility] HCO3 [Moles/Vol] 30 mmol/L 21 - 32 mmol/L [facility] Interpretation and review of laboratory results Abnormal [facility] Potassium [Moles/Vol] 4.5 mmol/L 3.5 - 5.1 mmol/L [facility] Comment on above: Slightly Hemolyzed Sodium [Moles/Vol] 140 mmol/L 135 - 145 mmol/L [facility] Urea nitrogen [Mass/Vol] 16 mg/dL 8 - 25 mg/dL [facility] Urea nitrogen/Creatinine [Mass ratio] 20.8 mg/mg High 10.0 - 20.0 [facility] has implemented the eGFR calculation approach that does not have a coefficient for race that conforms to the NKF-ASN Task Force Recommendations. [facility] CBCon 10-26-2023 AUTO NRBC 0.0 % Normal [facility] Comment on above: Performed By: #### [id number] #### [facility] [address] [place] [address] Kvng William M.D. [id number] AUTO NRBC ABS COUNT 0.00 K/mcL Normal 0.00-0.00 [facility] Comment on above: Performed By: #### 4 [id number] #### [facility] [address] [place], [place] [address] Kvng William M.D. [id number] Erythrocyte distribution width (RBC) [Ratio] 13.6 % Normal 11.6-14.8 [facility] Comment on above: Performed By: #### 4 [id number] #### [facility] [address] [place], [place] [address] Kvng William M.D. [id number] Hematocrit (Bld) [Volume fraction] 48.3 % Normal 41.0-53.0 [facility] Comment on above: Performed By: #### 4 [id number] #### [facility] [address] [place], [place] [address] Kvng William M.D. [id number] Hemoglobin (Bld) [Mass/Vol] 15.5 g/dL Normal 13.5-17.5 [facility] Comment on above: Performed By: #### 4 [id number] #### [facility] [address] [place] [address] Kvng William M.D. [id number] MCH (RBC) [Entitic mass] 31.0 pg Normal 26.0-34.0 [facility] Comment on above: Performed By: #### 4 [id number] #### [facility] [address] [place] [address] Kvng William M.D. [id number] MCV (RBC) [Entitic vol] 96.6 fL Normal 80.0-100.0 [facility] Comment on above: Performed By: #### 4 [id number] #### [facility] [address] [place], [place] [address] Kvng William M.D. [id number] MEAN CORPUSCULAR HEMOGLOBIN CONC 32.1 g/dL Normal 31.0-37.0 [facility] Comment on above: Performed By: #### 4 [id number] #### [facility] [address] [place], [place] [address] Kvng William M.D. [id number] Platelet mean volume (Bld) [Entitic vol] 9.8 fL Normal 9.4-12.4 [facility] Comment on above: Performed By: #### 4 [id number] #### [facility] [address] [place], [place] [address] Kvng William M.D. [id number] Platelets (Bld) [#/Vol] 210 10*3/uL Normal 150-400 [facility] Comment on above: Performed By: #### 4 [id number] #### [facility] [address] [place], [place] [address] Kvng William M.D. [id number] RBC (Bld) [#/Vol] 5.00 10*6/uL Normal 4.50-5.90 [facility] Comment on above: Performed By: #### 4 [id number] #### [facility] [address] [place] [address] Kvng William M.D. [id number] WBC (Bld) [#/Vol] 9.41 10*3/uL Normal 4.50-11.00 [facility] Comment on above: Performed By: #### 4 [id number] #### [facility] [address] [place] [address] Kvng William M.D. [id number] CBC panel Auto (Bld)on 10-25 Erythrocyte distribution width (RBC) [Entitic vol] 13.6 % 11.6 - 14.8 % [facility] Hematocrit (Bld) [Volume fraction] 48.3 % 41.0 - 53.0 % [facility] Hemoglobin (Bld) [Mass/Vol] 15.5 g/dL 13.5 - 17.5 g/dL [facility] MCH (RBC) [Entitic mass] 31.0 pg 26.0 - 34.0 pg [facility] MCHC (RBC) [Mass/Vol] 32.1 g/dL 31.0 - 37.0 g/dL [facility] MCV (RBC) [Entitic vol] 96.6 fL 80.0 - 100.0 fL [facility] Nucleated RBC (Bld) [#/Vol] 0.00 10*3/uL [facility] Nucleated RBC/100 WBC (Bld) [Ratio] 0.0 % [facility] Platelet mean volume (Bld) [Entitic vol] 9.8 fL 9.4 - 12.4 fL [facility] Platelets (Bld) [#/Vol] 210 10*3/uL [facility] RBC (Bld) [#/Vol] 5.00 10*6/uL [facility] WBC (Bld) [#/Vol] 9.41 10*3/uL [facility] 12-leadon 10-26-2023 Atrial Rate 110 BPM [facility] P [place] 85 degrees [facility] P-R Interval 140 ms [facility] Q-T Interval 304 ms [facility] QRS Duration 90 ms [facility] QTC Calculation (Bezet) 411 ms [facility] R [place] 91 degrees [facility] T [place] 69 degrees [facility] Ventricular Rate 110 BPM [facility] tachycardia Rightward axis Anterior infarct , age undetermined Abnormal ECG Confirmed by SONNY KEE MD ([id number]) on 10/26/2023 8:22:09 AM MUSE [facility] Gas panel (BldV)Ordered By: Haydee Griggs on 10-26-2023 Base excess Calc (BldV) [Moles/Vol] 3.7 mmol/L High -2.0 - 2.0 [facility] CO2 (BldV) [Partial pressure] 73.6 mm[Hg] High [facility] HCO3 (Bld) [Moles/Vol] 33.3 mmol/L High 24.0 - 28.0 mmol/L [facility] Hematocrit (BldA) [Volume fraction] 49.6 % 41.0 - 53.0 % [facility] Hemoglobin (Bld) [Mass/Vol] 16.2 g/dL 13.5 - 17.5 g/dL [facility] Interpretation and review of laboratory results Abnormal [facility] Oxygen (BldV) [Partial pressure] 72 mm[Hg] High [facility] Oxygen saturation in Venous blood 93.1 % High 40.0 - 70.0 % [facility] pH (BldV) 7.28 [pH] Low 7.32 - 7.42 [facility] MAGNESIUM LEVELon 10-26-2023 Magnesium [Mass/Vol] 2.2 mg/dL Normal 1.6-2.4 [facility] Comment on above: Performed By: #### 4 [id number] #### [facility] [address] [place] [address] Kvng William M.D. [id number] Magnesium Levelon 10-26-2023 Magnesium [Mass/Vol] 2.2 mg/dL 1.6 - 2 .4 mg/dL [facility] Magnesium [Mass/Vol]on 10-25 Interpretation and review of laboratory results Normal [facility] No Panel InformationOrdered By: Jocelyne Lynn on 10-26-2023 [facility] Obtain venous blood gases an d performon 10-26-2023 [facility] XR CHEST PA/APon 10-26-2023 XR CHEST [...] ThuOctober 27, 2023 6:00:37 AM EDT Normal [facility] Comment on above: Order Comment: Injur y/Trauma or Illness?:Illness/Other How long have you had these symptoms (acute/chronic)?:Unknown Reason for exam?:shortness of breath History of cancer?:unknown Surgeries, chemotherapy, or radiation?:unknown Type of Exam?:Initial Additional signs and symptoms?:. XR Chest PA and Abdomen APon 10-26-2023 Radiology Study observation (narrative) [facility] BASIC METABOLIC PANELon 10-06 Anion gap [Moles/Vol] 14 mmol/L Normal - [facility] Comment on above: Order Comment: [facility] has implemented the eGFR calculation approach that does not have a coefficient for race that conforms to the NKF-ASN Task Force Recommendations. Performed By: #### [id number] #### [facility] [address] [place] [address] Kvng William M.D. [id number] Calcium [Mass/Vol] 8.2 mg/dL Low 8.4-10.2 [facility] Comment on above: Order Comment: [facility] has implemented the eGFR calculation approach that does not have a coefficient for race that conforms to the NKF-ASN Task Force Recommendations. Performed By: #### 4 [id number] #### [facility] [address] [place] [address] Kvng William M.D. [id number] Chloride [Moles/Vol] 101 mmol/L Normal 98-108 [facility] Comment on above: Order Comment: [facility] has implemented the eGFR calculation approach that does not have a coefficient for race that conforms to the NKF-ASN Task Force Recommendations. Performed By: #### 4 [id number] #### [facility] [address] [place] [address] Kvng William M.D. [id number] Creatinine [Mass/Vol] 0.98 mg/dL Normal 0.80-1.30 [facility] Comment on above: Order Comment: [facility] has implemented the eGFR calculation approach that does not have a coefficient for race that conforms to the NKF-ASN Task Force Recommendations. Performed By: #### 4 [id number] #### [facility] [address] [place] [address] Kvng William M.D. [id number] EGFR 87 mL/min/1.73 m2 Normal >=60 [facility] Comment on above: Order Comment: [facility] has implemented the eGFR calculation approach that does not have a coefficient for race that conforms to the NKF-ASN Task Force Recommendations. Result Comment: Clarissa mated GFR was calculated using the 2020 CKD-EPI creatinine equation. Performed By: #### 4 [id number] #### [facility] [address] [place] [address] Kvng William M.D. [id number] Glucose [Mass/Vol] 117 mg/dL High 65-99 [facility] Comment on above: Order Comment: [facility] has implemented the eGFR calculation approach that does not have a coefficient for race that conforms to the NKF-ASN Task Force Recommendations. Performed By: #### 4 [id number] #### [facility] [address] [place] [address] Kvng William M.D. [id number] HCO3 (Bld) [Moles/Vol] 27 mmol/L Normal 21-32 [facility] Comment on above: Order Comment: [facility] has implemented the eGFR calculation approach that does not have a coefficient for race that conforms to the NKF-ASN Task Force Recommendations. Performed By: #### 4 [id number] #### [facility] [address] [place] [address] Kvng William M.D. [id number] Potassium [Moles/Vol] 4.1 mmol/L Normal 3.5-5.1 [facility] Comment on above: Order Comment: [facility] has implemented the eGFR calculation approach that does not have a coefficient for race that conforms to the NKF-ASN Task Force Recommendations. Performed By: #### 4 [id number] #### [facility] [address] [place] [address] Kvng William M.D. [id number] Sodium [Moles/Vol] 138 mmol/L Normal 135-145 [facility] Comment on above: Order Comment: [facility] has implemented the eGFR calculation approach that does not have a coefficient for race that conforms to the NKF-ASN Task Force Recommendations. Performed By: #### 4 [id number] #### [facility] [address] [place] [address] Kvng William M.D. [id number] Urea nitrogen [Mass/Vol] 13 mg/dL Normal 8-25 [facility] Comment on above: Order Comment: [facility] has implemented the eGFR calculation approach that does not have a coefficient for race that conforms to the NKF-ASN Task Force Recommendations. Performed By: #### 4 [id number] #### [facility] [address] [place] [address] Kvng William M.D. [id number] Urea nitrogen/Creatinine [Mass ratio] 13.3 mg/mg Normal 10.0-20.0 [facility] Comment on above: Order Comment: [facility] has implemented the eGFR calculation approach that does not have a coefficient for race that conforms to the NKF-ASN Task Force Recommendations. Performed By: #### 4 [id number] #### [facility] [place], [place] [address] Kvng William M.D. [id number] Basic metabolic 2000 panelon 10-25-2023 Anion gap [Moles/Vol] 14 mmol/L 10 - 2 0 mmol/L [facility] Calcium [Mass/Vol] 8.2 mg/dL Low 8.4 - 10. 2 mg/dL [facility] Chloride [Moles/Vol] 101 mmol/L 98 - 10 8 mmol/L [facility] Creatinine [Mass/Vol] 0.98 mg/dL 0.80 - 1.30 mg/dL [facility] GFR/1.73 sq M.predicted CKD-EPI (S/P/Bld) [Vol rate/Area] 87 - PINF [facility] Comment on above: Estimated GFR was ca lculated using the 2020 CKD-EPI creatinine equation. Glucose [Mass/Vol] 117 mg/dL High 65 - 99 mg/dL [facility] HCO3 [Moles/Vol] 27 mmol/L 21 - 32 mmol/L [facility] Interpretation and review of laboratory results Abnormal [facility] Potassium [Moles/Vol] 4.1 mmol/L 3.5 - 5.1 mmol/L [facility] Sodium [Moles/Vol] 138 mmol/L 135 - 145 mmol/L [facility] Urea nitrogen [Mass/Vol] 13 mg/dL 8 - 25 mg/dL [facility] Urea nitrogen/Creatinine [Mass ratio] 13.3 mg/mg 10.0 - 20.0 [facility] has implemented the eGFR calculation approach that does not have a coefficient for race that conforms to the NKF-ASN Task Force Recommendations. [facility] CBC Auto Differentialon 10-06 Basophils (Bld) [#/Vol] 0.10 10*3/uL [facility] Basophils/100 WBC (Bld) 1.6 % [facility] Eosinophils (Bld) [#/Vol] 0.31 10*3/uL [facility] Eosinophils/100 WBC (Bld) 5.1 % [facility] Erythrocyte distribution width (RBC) [Entitic vol] 13.5 % 11.6 - 14.8 % [facility] Hematocrit (Bld) [Volume fraction] 49.0 % 41.0 - 53.0 % [facility] Hemoglobin (Bld) [Mass/Vol] 15.9 g/dL 13.5 - 17.5 g/dL [facility] Immature granulocytes (Bld) [#/Vol] 0.02 10*3/uL [facility] Immature granulocytes/100 WBC (Bld) 0.30 % [facility] Comment on above: The IG parameter is the percentage of metamyelocytes, myelocytes and promyelocytes. An immature granulocyte count (IG) of 1% or more suggests the possibility of infection, an IG count of 3% is very likely related to an infection. Lymphocytes (Bld) [#/Vol] 0.90 10*3/uL [facility] Lymphocytes/100 WBC (Bld) 14.8 % [facility] MCH (RBC) [Entitic mass] 31.1 pg 26.0 - 34.0 pg [facility] MCHC (RBC) [Mass/Vol] 32.4 g/dL 31.0 - 37.0 g/dL [facility] MCV (RBC) [Entitic vol] 95.9 fL 80.0 - 100.0 fL [facility] Monocytes (Bld) [#/Vol] 0.82 10*3/uL [facility] Monocytes/100 WBC (Bld) 13.4 % [facility] Neutrophils (Bld) [#/Vol] 3.95 10*3/uL [facility] Neutrophils/100 WBC (Bld) 64.8 % [facility] Nucleated RBC (Bld) [#/Vol] 0.00 10*3/uL [facility] Nucleated RBC/100 WBC (Bld) [Ratio] 0.0 % [facility] Platelet mean volume (Bld) [Entitic vol] 9.8 fL 9.4 - 12.4 fL [facility] Platelets (Bld) [#/Vol] 194 10*3/uL [facility] RBC (Bld) [#/Vol] 5.11 10*6/uL [facility] WBC (Bld) [#/Vol] 6.10 10*3/uL [facility] CBC WITH AUTO DIFFERENTIALon 10-25-2023 AUTO NRBC 0.0 % Normal [facility] Comment on above: Performed By: #### L [id number] ####[facility] [address] [place] [address] Kvng William M.D. [id number] AUTO NRBC ABS COUNT 0.00 K/mcL Normal 0.00-0.00 [facility] Comment on above: Performed By: #### L [id number] ####[facility] [address] [place] [address] Kvng William M.D. [id number] BASOPHILS ABSOLUTE COUNT 0.10 K/mcL Normal 0.00-0.30 [facility] Comment on above: Performed By: #### L [id number] ####[facility] [address] [place] [address] Kvng William M.D. [id number] Basophils/100 WBC (Bld) 1.6 % Normal [facility] Comment on above: Performed By: #### L [id number] ####[facility] [address] [place] [address] Kvng William M.D. [id number] Eosinophils (Bld) [#/Vol] 0.31 10*3/uL Normal 0.00-0.50 [facility] Comment on above: Performed By: #### L [id number] ####[facility] [address] [place] [address] Kvng William M.D. [id number] Eosinophils/100 WBC (Bld) 5.1 % Normal [facility] Comment on above: Performed By: #### L [id number] ####[facility] [address] [place] [address] Kvng William M.D. [id number] Erythrocyte distribution width (RBC) [Ratio] 13.5 % Normal 11.6-14.8 [facility] Comment on above: Performed By: #### L [id number] ####[facility] [address] [place] [address] Kvng William M.D. [id number] Hematocrit (Bld) [Volume fraction] 49.0 % Normal 41.0-53.0 [facility] Comment on above: Performed By: #### L [id number] ####[facility] [address] [place] [address] Kvng William M.D. [id number] Hemoglobin (Bld) [Mass/Vol] 15.9 g/dL Normal 13.5-17.5 [facility] Comment on above: Performed By: #### L [id number] ####[facility] [address] [place] [address] Kvng William M.D. [id number] IG ABSOLUTE 0.02 K/mcL Normal 0.00-0.30 [facility] Comment on above: Performed By: #### L [id number] ####[facility] [address] [place] [address] Kvng William M.D. [id number] IG PERCENT 0.30 % Normal [facility] Comment on above: Result Comment: The IG parameter is the percentage of metamyelocytes, myelocytes and promyelocytes. An immature granulocyte count (IG) of 1% or more suggests the possibility of infection, an IG count of 3% is very likely related to an infection. Performed By: #### L [id number] ####[facility] [address] [place] [address] Kvng William M.D. [id number] Lymphocytes (Bld) [#/Vol] 0.90 10*3/uL Normal 0.90-4.00 [facility] Comment on above: Performed By: #### Paresh [id number] ####[facility] [address] [place] [address] Kvng William M.D. [id number] Lymphocytes/100 WBC (Bld) 14.8 % Normal [facility] Comment on above: Performed By: #### Paresh [id number] ####[facility] [address] [place] [address] Kvng William M.D. [id number] MCH (RBC) [Entitic mass] 31.1 pg Normal 26.0-34.0 [facility] Comment on above: Performed By: #### Paresh [id number] ####[facility] [address] [place] [address] Kvng William M.D. [id number] MCV (RBC) [Entitic vol] 95.9 fL Normal 80.0-100.0 [facility] Comment on above: Performed By: #### Paresh [id number] ####[facility] [address] [place] [address] Kvng William M.D. [id number] MEAN CORPUSCULAR HEMOGLOBIN CONC 32.4 g/dL Normal 31.0-37.0 [facility] Comment on above: Performed By: #### Paresh [id number] ####[facility] [address] [place] [address] Kvng William M.D. [id number] Monocytes (Bld) [#/Vol] 0.82 10*3/uL Normal 0.30-0.90 [facility] Comment on above: Performed By: #### Paresh [id number] ####[facility] [address] [place] [address] Kvng William M.D. [id number] Monocytes/100 WBC (Bld) 13.4 % Normal [facility] Comment on above: Performed By: #### L [id number] ####[facility] [address] [place], [place] [address] Kvng William M.D. [id number] NEUTROPHILS ABSOLUTE COUNT 3.95 K/mcL Normal 1.70-7.00 [facility] Comment on above: Performed By: #### L [id number] ####[facility] [address] [place] [address] Kvng William M.D. [id number] Neutrophils/100 WBC (Bld) 64.8 % Normal [facility] Comment on above: Performed By: #### L [id number] ####[facility] [address] [place] [address] Kvng William M.D. [id number] Platelet mean volume (Bld) [Entitic vol] 9.8 fL Normal 9.4-12.4 [facility] Comment on above: Performed By: #### L [id number] ####[facility] [address] [place] [address] Kvng William M.D. [id number] Platelets (Bld) [#/Vol] 194 10*3/uL Normal 150-400 [facility] Comment on above: Performed By: #### L [id number] ####[facility] [address] [place], [place] [address] Kvng William M.D. [id number] RBC (Bld) [#/Vol] 5.11 10*6/uL Normal 4.50-5.90 [facility] Comment on above: Performed By: #### L [id number] ####[facility] [address] [place], [place] [address] Kvng William M.D. [id number] WBC (Bld) [#/Vol] 6.10 10*3/uL Normal 4.50-11.00 [facility] Comment on above: Performed By: #### L [id number] ####[facility] [address] [place] [address] Kvng William M.D. [id number] ED Prov Noteon 10-25-2023 ED Prov Note [...] ED attending, Dr. Cabral. Will admit to [facility]. Please see hospital attending physician note for further information and final disposition of this patient. Impressions: 1. COPD exacerbation (HCC) 2. Increased sputum production 3. Tachypnea [facility] Data ED Course as of 10/25/232114 Sun October 25, [id number] Spoke with [facility], agreeable for admission [RO] ED Course User Index [RO] Mirta Christopher PA-C [facility] Data: External Documents/Labs Reviewed, ECG interpreted, X-ray interpretation reviewed, Discussed with consultants/staff, and Shared decision making utilized Previous Records Reviewed . . Labs Reviewed BASIC METABOLIC PANEL - Abnormal; Notable for the following components: Result Value Glucose 117 (*) Calcium 8.2 (*) All other components within normal limits Narrative: [facility] has implemented the eGFR calculation approach that does not have a coefficient for race that conforms to the NKF-ASN Task Force Recommendations. POC VBG LAB([facility]) - RALS - Abnormal; Notable for the following components: pCO2, Edison 53.5 (*) pO2, [place] 58 (*) O2 Sat, [place] 87.3 (*) Hemoglobin, Calculated 18.0 (*) Glucose 120 (*) Ionized Calcium 4.2 (*) All other components within normal limits Narrative: [facility] has implemented the eGFR calculation approach that does not have a coefficient for race that conforms to the NKF-ASN Task Force Recommendations. OBTAIN VENOUS BLOOD GASES AND PERFORM CBC AND DIFFERENTIAL Narrative: The following orders were created for panel order CBC w/ Diff. Procedure Abnormality Status --------- ------ CBC Auto Differential[[id number]] Final result Please view results for these [...] DECISION MAKING (more content not included)... Normal [facility] Gold Topon 10-25-2023 Extra Tube Hold for add-ons. [facility] Comment on above: Auto resulted. [facility] No Panel Informationon 10-24 Extra Tube Hold for add-ons. [facility] Comment on above: Auto resulted. [facility] POC VBG LAB([facility]) - RALSon 0 10-25-2023 BASE EXCESS, VENOUS 1.4 Normal -2.0-2.0 [facility] Comment on above: Order Comment: [facility] has implemented the eGFR calculation approach that does not have a coefficient for race that conforms to the NKF-ASN Task Force Recommendations. Performed By: #### P [id number] ####[facility] [address] [place] [address] Kvng William M.D. [id number] CALCIUM IONIZED 4.2 mg/dL Low 4.5-5.3 [facility] Comment on above: Order Comment: [facility] has implemented the eGFR calculation approach that does not have a coefficient for race that conforms to the NKF-ASN Task Force Recommendations. Performed By: #### P [id number] ####[facility] [address] [place] [address] Kvng William M.D. [id number] Chloride [Moles/Vol] 100 mmol/L Normal 98-108 [facility] Comment on above: Order Comment: [facility] has implemented the eGFR calculation approach that does not have a coefficient for race that conforms to the NKF-ASN Task Force Recommendations. Performed By: #### P [id number] ####[facility] [address] [place] [address] Kvng William M.D. [id number] CO2 [Moles/Vol] 28 mmol/L Normal 21-32 [facility] Comment on above: Order Comment: [facility] has implemented the eGFR calculation approach that does not have a coefficient for race that conforms to the NKF-ASN Task Force Recommendations. Performed By: #### P [id number] ####[facility] [address] [place], [place] [address] Kvng William M.D. [id number] Creatinine [Mass/Vol] 0.90 mg/dL Normal 0.80-1.30 [facility] Comment on above: Order Comment: [facility] has implemented the eGFR calculation approach that does not have a coefficient for race that conforms to the NKF-ASN Task Force Recommendations. Performed By: #### P [id number] ####[facility] [address] [place] [address] Kvng William M.D. [id number] Glucose [Mass/Vol] 120 mg/dL High 65-99 [facility] Comment on above: Order Comment: [facility] has implemented the eGFR calculation approach that does not have a coefficient for race that conforms to the NKF-ASN Task Force Recommendations. Performed By: #### P [id number] ####[facility] [address] [place], [place] [id number] Kvng William M.D. [id number] Hematocrit (Bld) [Volume fraction] 53 % Normal 41-53 [facility] Comment on above: Order Comment: [facility] has implemented the eGFR calculation approach that does not have a coefficient for race that conforms to the NKF-ASN Task Force Recommendations. Performed By: #### P [id number] ####[facility] [address] [place] [address] Kvng William M.D. [id number] HEMOGLOBIN, CALCULATED 18.0 g/dL High 13.5-17.5 [facility] Comment on above: Order Comment: [facility] has implemented the eGFR calculation approach that does not have a coefficient for race that conforms to the NKF-ASN Task Force Recommendations. Performed By: #### P [id number] ####[facility] [address] [place], [place] [address] Kvng William M.D. [id number] Oxygen saturation in Blood 87.3 % High 40.0-70.0 [facility] Comment on above: Order Comment: [facility] has implemented the eGFR calculation approach that does not have a coefficient for race that conforms to the NKF-ASN Task Force Recommendations. Performed By: #### P [id number] ####[facility] [address] [place] [address] Kvng William M.D. [id number] PCO2 VENOUS 53.5 mm Hg High 41.0-51.0 [facility] Comment on above: Order Comment: [facility] has implemented the eGFR calculation approach that does not have a coefficient for race that conforms to the NKF-ASN Task Force Recommendations. Performed By: #### P [id number] ####[facility] [address] [place], [place] [address] Kvng William M.D. [id number] PH VENOUS 7.34 Normal 7.32-7.42 [facility] Comment on above: Order Comment: [facility] has implemented the eGFR calculation approach that does not have a coefficient for race that conforms to the NKF-ASN Task Force Recommendations. Performed By: #### P [id number] ####[facility] [address] [place], [place] [address] Kvng William M.D. [id number] PO2 VENOUS 58 mm Hg High 25-40 [facility] Comment on above: Order Comment: [facility] has implemented the eGFR calculation approach that does not have a coefficient for race that conforms to the NKF-ASN Task Force Recommendations. Performed By: #### P [id number] ####[facility] [address] [place], [place] [address] Kvng William M.D. [id number] POC GFR 96 mL/min/1.73 m2 Normal >=60 [facility] Comment on above: Order Comment: [facility] has implemented the eGFR calculation approach that does not have a coefficient for race that conforms to the NKF-ASN Task Force Recommendations. Result Comment: Clarissa mated GFR was calculated using the 2020 CKD-EPI creatinine equation. Performed By: #### P [id number] ####[facility] [address] [place], [place] [address] Kvng William M.D. [id number] POC LACTATE 1.1 mmol/L Normal 0.6-2.0 [facility] Comment on above: Order Comment: [facility] has implemented the eGFR calculation approach that does not have a coefficient for race that conforms to the NKF-ASN Task Force Recommendations. Performed By: #### P [id number] ####[facility] [address] [place] [address] Kvng William M.D. [id number] Potassium [Moles/Vol] 4.0 mmol/L Normal 3.5-5.1 [facility] Comment on above: Order Comment: [facility] has implemented the eGFR calculation approach that does not have a coefficient for race that conforms to the NKF-ASN Task Force Recommendations. Performed By: #### P [id number] ####[facility] [address] [place] [address] Kvng William M.D. [id number] Sodium [Moles/Vol] 138 mmol/L Normal 135-145 [facility] Comment on above: Order Comment: [facility] has implemented the eGFR calculation approach that does not have a coefficient for race that conforms to the NKF-ASN Task Force Recommendations. Performed By: #### P [id number] ####[facility] [address] [place] [address] Kvng William M.D. [id number] Urea nitrogen [Mass/Vol] 13 mg/dL Normal 8-25 [facility] Comment on above: Order Comment: [facility] has implemented the eGFR calculation approach that does not have a coefficient for race that conforms to the NKF-ASN Task Force Recommendations. Performed By: #### P [id number] ####[facility] [address] [place] [address] Kvng William M.D. [id number] POC Venous Blood Gases with Full PanelOrdered By: Devon Burnham on 10-25-2023 Base excess Calc (BldV) [Moles/Vol] 1.4 mmol/L -2.0 - 2.0 [facility] Calcium.ionized [Mass/Vol] 4.2 mg/dL Low 4.5 - 5.3 mg/dL [facility] Chloride [Moles/Vol] 100 mmol/L 98 - 10 8 mmol/L [facility] CO2 (BldV) [Partial pressure] 53.5 mm[Hg] High [facility] CO2 [Moles/Vol] 28 mmol/L 21 - 32 mmol/L [facility] Creatinine [Mass/Vol] 0.90 mg/dL 0.80 - 1.30 mg/dL [facility] GFR/1.73 sq M.predicted CKD-EPI (S/P/Bld) [Vol rate/Area] 96 - PINF [facility] Comment on above: Estimated GFR was ca lculated using the 2020 CKD-EPI creatinine equation. Glucose [Mass/Vol] 120 mg/dL High 65 - 99 mg/dL [facility] Hematocrit (Bld) [Volume fraction] 53 % 41 - 53 % [facility] Hemoglobin (Bld) [Mass/Vol] 18.0 g/dL High 13.5 - 17.5 g/dL [facility] Interpretation and review of laboratory results Abnormal [facility] Lactate (Bld) [Mass/Vol] 1.1 mmol/L 0.6 - 2.0 mmol/L [facility] Oxygen (BldV) [Partial pressure] 58 mm[Hg] High [facility] Oxygen saturation in Venous blood 87.3 % High 40.0 - 70.0 % [facility] pH (BldV) 7.34 [pH] 7.32 - 7.42 [facility] Potassium [Moles/Vol] 4.0 mmol/L 3.5 - 5.1 mmol/L [facility] Sodium [Moles/Vol] 138 mmol/L 135 - 145 mmol/L [facility] Urea nitrogen [Mass/Vol] 13 mg/dL 8 - 25 mg/dL [facility] has implemented the eGFR calculation approach that does not have a coefficient for race that conforms to the NKF-ASN Task Force Recommendations. [facility] TROPONINon 10-25-2023 BASELINE TROPONIN T NG/L 11 ng/L Normal <=22 [facility] Comment on above: Performed By: #### [id number] ####[facility] [address] [place], [place] [address] Kvng William M.D. [id number] TROPONIN T INTERPRETATION Normal Normal [facility] Comment on above: Performed By: #### [id number] ####[facility] [address] [place] [address] Kvng William M.D. [id number] Troponinon 10-25-2023 Troponin T 11 ng/L NINF - 22 ng/L [facility] Troponin T Interpretation Normal [facility] XR CHEST PA/APon 10-25-2023 XR CHEST [...] on ThuOctober 25, 2023 7:20:56 PM EDT [facility] Comment on above: Order Comment: Injur y/Trauma or Illness?:Illness/Other How long have you had these symptoms (acute/chronic)?:Acute Reason for exam?:shortness of breath History of cancer?:unknown Surgeries, chemotherapy, or radiation?:unknown Type of Exam?:Initial Additional signs and symptoms?:- XR Chest PA and Abdomen APon 10-25-2023 No acute pulmonary disease. Workstation ID: [id number] BALALIKEA EXAMINATION: XR CHEST PA/AP EXAM DATE: 10/25/2023 [...] mid lung.. There is no acute consolidation. [employer] RIS Yakov Way MD - 10/25/2023 EXAMINATION: [...] No acute pulmonary disease. Workstation ID: [id number] [facility] Radiology Study observation (narrative) [facility] XR Chest PA and Abdomen APOr dered By: Yakov Way on 10-25-2023 [facility] Work Phone: CHEM [phone] (LYTES, BUN CREA)on 0 10-02-2023 Anion gap [Moles/Vol] 10 mmol/L 7 - 17 mmol/L [facility] Chloride [Moles/Vol] 100 mmol/L 98 - 10 8 mmol/L [facility] CO2 [Moles/Vol] 33 mmol/L High 21 - 31 mmol/L [facility] Creatinine [Mass/Vol] 0.90 mg/dL 0.70 - 1.30 mg/dL [facility] eGFR, CKD-EPI, Male - PINF [facility] Comment on above: Reported eGFR is bas ed on the CKD-EPI 2020 equation using creatinine, age, and sex. Potassium [Moles/Vol] 4.0 mmol/L 3.5 - 5.0 mmol/L [facility] Sodium [Moles/Vol] 139 mmol/L 135 - 145 mmol/L [facility] Urea nitrogen [Mass/Vol] 11 mg/dL 7 - 25 mg/dL [facility] Urea nitrogen/Creatinine [Mass ratio] 12 mg/mg [facility] HEMOGLOBIN A1Con 10-02-2023 Average glucose Estimated from glycated hemoglobin (Bld) [Mass/Vol] 108 mg/dL [facility] HbA1c (Bld) [Mass fraction] 5.4 % 4.7 - 5.6 % [facility] HEPATIC FUNCTION PANELon Albumin [Mass/Vol] 4.0 g/dL 3.5 - 5.0 g/dL [facility] ALP [Catalytic activity/Vol] 115 U/L 32 - 126 U/L [facility] ALT [Catalytic activity/Vol] 22 U/L 10 - 52 U/L [facility] AST [Catalytic activity/Vol] 15 U/L 10 - 39 U/L [facility] Bilirubin [Mass/Vol] 0.4 mg/dL NINF - 1.5 mg/dL [facility] Bilirubin.direct [Mass/Vol] 0.1 mg/dL NINF - 0.3 mg/dL [facility] Protein [Mass/Vol] 6.7 g/dL 6.4 - 8.3 g/dL [facility] LIPID PANEL W CALCULATED LDL on 10-02-2023 Cholesterol [Mass/Vol] 144 mg/dL NINF - 200 mg/dL [facility] Comment on above: [<200 mg/dL: Desirab le] [200-239 mg/dL: Borderline High] [>239 mg/dL: High] Cholesterol in HDL [Mass/Vol] 34 mg/dL Low 40 - PINF mg/dL [facility] Comment on above: [<40 mg/dL: Low (Hig h Risk)] [>59 mg/dL: High (Low Risk)] Cholesterol in LDL [Mass/Vol] 82 mg/dL 0 - 99 mg/dL [facility] Comment on above: [<100 mg/dL: Optimal ] [100-129 mg/dL: Near Optimal] [130-159 mg/dL: Borderline High] [160-189 mg/dL: High] [>189 mg/dL: Very High] Cholesterol non HDL [Mass/Vol] 110 mg/dL NINF - 130 mg/dL [facility] Cholesterol.total/Cho lesterol in HDL [Mass ratio] 4.2 {ratio} NINF - 4.5 [facility] Triglyceride [Mass/Vol] 141 mg/dL NINF - 150 mg/dL [facility] Comment on above: [<150 mg/dL: Desirab le] [150-199 mg/dL: Borderline] [200-499 mg/dL: High] [>500 mg/dL: Very High] MAGNESIUMon 10-02-2023 Magnesium [Mass/Vol] 2.1 mg/dL 1.6 - 2 .6 mg/dL [facility] No Panel Informationon 10-01 Interpretation and review of laboratory results Abnormal [facility] Interpretation and review of laboratory results Normal [facility] PSA, SCREENINGon 10-02-2023 Interpretation and review of laboratory results Abnormal [facility] Prostate specific Ag [Mass/Vol] 6.72 ng/mL High NINF - 4.00 ng/mL [facility] Comment on above: This test was perfor med on the [employer] Immunoassay platform which is a 2-step sandwich chemiluminescent immunoassay. It is important to note that assays using different manufacturers and/or methods may not be comparable. [facility] Basic metabolic 2000 panelon 08-21-2021 Anion gap [Moles/Vol] 17 mmol/L 10 - 2 0 mmol/L [facility] Calcium [Mass/Vol] 9.7 mg/dL 8.4 - 10. 2 mg/dL [facility] Chloride [Moles/Vol] 94 mmol/L Low 98 - 10 8 mmol/L [facility] Creatinine [Mass/Vol] 0.71 mg/dL Low 0.80 - 1.30 [facility] GFR/1.73 sq M.predicted CKD-EPI (S/P/Bld) [Vol rate/Area] 101 >=60 mL/min/1.73 m2 [facility] Glucose [Mass/Vol] 120 mg/dL High 65 - 99 mg/dL [facility] HCO3 [Moles/Vol] 30 mmol/L 21 - 32 mmol/L [facility] Interpretation and review of laboratory results Abnormal [facility] Potassium [Moles/Vol] 4.3 mmol/L 3.5 - 5.1 mmol/L [facility] Sodium [Moles/Vol] 137 mmol/L 135 - 145 mmol/L [facility] Urea nitrogen [Mass/Vol] 17 mg/dL 8 - 25 mg/dL [facility] Urea nitrogen/Creatinine [Mass ratio] 23.9 mg/mg High [facility] The eGFR should be u sed for monitoring renal function only and not for medication dosing. [facility] CBC Auto Differentialon 08-06 Basophils (Bld) [#/Vol] 0.04 10*3/uL [facility] Basophils/100 WBC (Bld) 0.2 % [facility] Eosinophils (Bld) [#/Vol] 0.00 10*3/uL [facility] Eosinophils/100 WBC (Bld) 0.0 % [facility] Erythrocyte distribution width (RBC) [Entitic vol] 13.0 % 11.6 - 14.8 % [facility] Hematocrit (Bld) [Volume fraction] 44.4 % 41.0 - 53.0 % [facility] Hemoglobin (Bld) [Mass/Vol] 14.7 g/dL 13.5 - 17.5 g/dL [facility] Immature granulocytes (Bld) [#/Vol] 0.22 10*3/uL [facility] Immature granulocytes/100 WBC (Bld) 1.00 % [facility] Comment on above: The IG parameter is the percentage of metamyelocytes, myelocytes and promyelocytes. An immature granulocyte count (IG) of 1% or more suggests the possibility of infection, an IG count of 3% is very likely related to an infection. Interpretation and review of laboratory results Abnormal [facility] Lymphocytes (Bld) [#/Vol] 0.65 10*3/uL Low [facility] Lymphocytes/100 WBC (Bld) 2.9 % [facility] MCH (RBC) [Entitic mass] 31.7 pg 26.0 - 34.0 pg [facility] MCHC (RBC) [Mass/Vol] 33.1 g/dL 31.0 - 37.0 g/dL [facility] MCV (RBC) [Entitic vol] 95.7 fL 80.0 - 100.0 fL [facility] Monocytes (Bld) [#/Vol] 1.28 10*3/uL High [facility] Monocytes/100 WBC (Bld) 5.8 % [facility] Neutrophils (Bld) [#/Vol] 19.92 10*3/uL High [facility] Neutrophils/100 WBC (Bld) 90.1 % [facility] Nucleated RBC (Bld) [#/Vol] 0.00 10*3/uL [facility] Nucleated RBC/100 WBC (Bld) [Ratio] 0.0 % [facility] Platelet mean volume (Bld) [Entitic vol] 9.2 fL Low 9.4 - 12.4 fL [facility] Platelets (Bld) [#/Vol] 343 10*3/uL [facility] RBC (Bld) [#/Vol] 4.64 10*6/uL [facility] WBC (Bld) [#/Vol] 22.11 10*3/uL [facility] CBC Auto Differentialon 08-06 Basophils (Bld) [#/Vol] 0.02 10*3/uL [facility] Basophils/100 WBC (Bld) 0.1 % [facility] Eosinophils (Bld) [#/Vol] 0.00 10*3/uL [facility] Eosinophils/100 WBC (Bld) 0.0 % [facility] Erythrocyte distribution width (RBC) [Entitic vol] 13.1 % 11.6 - 14.8 % [facility] Hematocrit (Bld) [Volume fraction] 42.4 % 41.0 - 53.0 % [facility] Hemoglobin (Bld) [Mass/Vol] 14.1 g/dL 13.5 - 17.5 g/dL [facility] Immature granulocytes (Bld) [#/Vol] 0.10 10*3/uL [facility] Immature granulocytes/100 WBC (Bld) 0.70 % [facility] Comment on above: The IG parameter is the percentage of metamyelocytes, myelocytes and promyelocytes. An immature granulocyte count (IG) of 1% or more suggests the possibility of infection, an IG count of 3% is very likely related to an infection. Interpretation and review of laboratory results Abnormal [facility] Lymphocytes (Bld) [#/Vol] 0.50 10*3/uL Low [facility] Lymphocytes/100 WBC (Bld) 3.3 % [facility] MCH (RBC) [Entitic mass] 32.0 pg 26.0 - 34.0 pg [facility] MCHC (RBC) [Mass/Vol] 33.3 g/dL 31.0 - 37.0 g/dL [facility] MCV (RBC) [Entitic vol] 96.4 fL 80.0 - 100.0 fL [facility] Monocytes (Bld) [#/Vol] 0.16 10*3/uL Low [facility] Monocytes/100 WBC (Bld) 1.0 % [facility] Neutrophils (Bld) [#/Vol] 14.54 10*3/uL High [facility] Neutrophils/100 WBC (Bld) 94.9 % [facility] Nucleated RBC (Bld) [#/Vol] 0.00 10*3/uL [facility] Nucleated RBC/100 WBC (Bld) [Ratio] 0.0 % [facility] Platelet mean volume (Bld) [Entitic vol] 9.6 fL 9.4 - 12.4 fL [facility] Platelets (Bld) [#/Vol] 280 10*3/uL [facility] RBC (Bld) [#/Vol] 4.40 10*6/uL Low [facility] WBC (Bld) [#/Vol] 15.32 10*3/uL High [facility] Comprehensive metabolic 2000 panelon 08-20-2021 Albumin [Mass/Vol] 3.9 g/dL 3.2 - 5.2 g/dL [facility] ALP [Catalytic activity/Vol] 92 U/L 40 - 150 U/L [facility] ALT [Catalytic activity/Vol] 10 U/L 0 - 40 U/L [facility] Anion gap [Moles/Vol] 18 mmol/L 10 - 2 0 mmol/L [facility] AST [Catalytic activity/Vol] 10 U/L 0 - 45 U/L [facility] Bilirubin [Mass/Vol] 0.2 mg/dL 0.0 - 1 .3 mg/dL [facility] Calcium [Mass/Vol] 8.8 mg/dL 8.4 - 10. 2 mg/dL [facility] Chloride [Moles/Vol] 96 mmol/L Low 98 - 10 8 mmol/L [facility] Creatinine [Mass/Vol] 0.80 mg/dL 0.80 - 1.30 [facility] GFR/1.73 sq M.predicted CKD-EPI (S/P/Bld) [Vol rate/Area] 96 >=60 mL/min/1.73 m2 [facility] Glucose [Mass/Vol] 207 mg/dL High 65 - 99 mg/dL [facility] HCO3 [Moles/Vol] 23 mmol/L 21 - 32 mmol/L [facility] Interpretation and review of laboratory results Abnormal [facility] Potassium [Moles/Vol] 4.2 mmol/L 3.5 - 5.1 mmol/L [facility] Protein [Mass/Vol] 6.3 g/dL 6.0 - 8.0 g/dL [facility] Sodium [Moles/Vol] 133 mmol/L Low 135 - 145 mmol/L [facility] Urea nitrogen [Mass/Vol] 19 mg/dL 8 - 25 mg/dL [facility] Urea nitrogen/Creatinine [Mass ratio] 23.8 mg/mg High [facility] The eGFR should be u sed for monitoring renal function only and not for medication dosing. [facility] Drugs of Abuse Screen, Urine on 08-20-2021 Amphetamines Ql (U) Not detected None Detected [facility] Comment on above: Urine Amphetamine Cu toff: < 1000 ng/mL = None Detected Barbiturates Screen Ql (U) Not detected None Detected [facility] Comment on above: Urine Barbiturates C utoff: < 200 ng/mL = None Detected Benzodiazepines Ql (U) Not detected None Detected [facility] Comment on above: Urine Benzodiazepine Cutoff: < 200 ng/mL = None Detected Buprenorphine Ql (U) Positive Abnormal None Detected [facility] Comment on above: Urine Buprenorphine Cutoff: < 5 ng/mL = None Detected Cannabinoids Screen Ql (U) Not detected None Detected [facility] Comment on above: Urine Cannabinoids C utoff: < 50 ng/mL = None Detected Cocaine Ql (U) Not detected None Detected [facility] Comment on above: Urine Cocaine Cutoff : < 300 ng/mL = None Detected fentaNYL+Norfentanyl Screen Ql (U) Not detected None Detected [facility] Comment on above: Urine Fentanyl Cutof f: < 1 ng/mL = None Detected Interpretation and review of laboratory results Abnormal [facility] Methadone Screen Ql (U) Not detected None Detected [facility] Comment on above: Urine Methadone Cuto ff: < 300 ng/mL = None Detected Opiates Screen Ql (U) Not detected None Detecte d [facility] Comment on above: Urine Opiates Cutoff [...] by calling the lab within 2 weeks. [facility] ECG 12 Leadon 08-20-2021 Atrial Rate 120 BPM [facility] P [place] 84 degrees [facility] P-R Interval 148 ms [facility] Q-T Interval 312 ms [facility] QRS Duration 90 ms [facility] QTC Calculation (Bezet) 440 ms [facility] R [place] 70 degrees [facility] T [place] 69 degrees [facility] Ventricular Rate 120 BPM [facility] Sinus tachycardia Anterior infarct (cited on or before 13-DEC-2020) Abnormal ECG When compared with ECG of 24-MAY-2021 10:55, No significant change was found Confirmed by Physician, ED ([id number]), food expeditor CARMEN FLEMING ([id number]) on 08/20/2021 9:32:34 AM MUSE [facility] HbA1c (Bld) [Mass fraction]o n 08-20-2021 Average glucose Estimated from glycated hemoglobin (Bld) [Mass/Vol] 108 mg/dL 74 - 114 mg/dL [facility] Interpretation and review of laboratory results Normal [facility] Hemoglobin A1con 08-20-2021 HbA1c (Bld) [Mass fraction] 5.4 % 4.2 - 5.6 % [facility] INR Coag (PPP) [Relative marlen e]on 08-20-2021 Interpretation and review of laboratory results Normal [facility] PT Coag (PPP) [Time] 14.3 s [facility] During the induction phase of oral anticoagulation, the INR may not reflect the anticoagulation status of the patient. Therapeutic ranges for INR's are: Most clinical situations: INR 2.0-3.0 Mechanical Prosthetic Valve: INR 2.5-3.5 Critical: INR >5.0 [facility] Magnesiumon 08-20-2021 Magnesium [Mass/Vol] 2.1 mg/dL 1.6 - 2 .4 mg/dL [facility] Magnesium [Mass/Vol]on 08-20 Interpretation and review of laboratory results Normal [facility] No Panel Informationon 08-20 [facility] PT/INRon 08-20-2021 INR Coag (PPP) [Relative time] 1.1 {INR} [facility] Phosphate [Mass/Vol]on 08-20 Interpretation and review of laboratory results Normal [facility] Phosphoruson 08-20-2021 Phosphate [Mass/Vol] 2.4 mg/dL 2.3 - 3 .7 mg/dL [facility] S. pneumoniae Urine AntigenO rdered By: Mirta Jorge on 08-20-2021 Interpretation and review of laboratory results Normal [facility] S. pneumoniae Ag Ql (U) Negative Presumptive Negative for Pneumococcal pneumoniae [facility] Comment on above: A negative result rice ggests no current or recent pneumococcal infection. A negative result does not rule out Streptococcus pneumoniae infection since the antigen present in the sample may be below the detection limit of the test. [facility] TSH DL <= 0.005 mIU/L QnOrde red By: Zi Locke on 08-20-2021 Interpretation and review of laboratory results Normal [facility] TSH Qn 0.45 m[IU]/L [facility] Basic metabolic 2000 panelon 08-19-2021 Anion gap [Moles/Vol] 15 mmol/L 10 - 2 0 mmol/L [facility] Calcium [Mass/Vol] 9.0 mg/dL 8.4 - 10. 2 mg/dL [facility] Chloride [Moles/Vol] 97 mmol/L Low 98 - 10 8 mmol/L [facility] Creatinine [Mass/Vol] 0.95 mg/dL 0.80 - 1.30 [facility] GFR/1.73 sq M.predicted CKD-EPI (S/P/Bld) [Vol rate/Area] 86 >=60 mL/min/1.73 m2 [facility] Glucose [Mass/Vol] 110 mg/dL High 65 - 99 mg/dL [facility] HCO3 [Moles/Vol] 29 mmol/L 21 - 32 mmol/L [facility] Interpretation and review of laboratory results Abnormal [facility] Potassium [Moles/Vol] 4.1 mmol/L 3.5 - 5.1 mmol/L [facility] Sodium [Moles/Vol] 137 mmol/L 135 - 145 mmol/L [facility] Urea nitrogen [Mass/Vol] 10 mg/dL 8 - 25 mg/dL [facility] Urea nitrogen/Creatinine [Mass ratio] 10.5 mg/mg [facility] The eGFR should be u sed for monitoring renal function only and not for medication dosing. [facility] Blood Gas, Venous with Full PanelOrdered By: Stephanie Christopher on 08-19-2021 Base excess Calc (BldV) [Moles/Vol] 3.5 mmol/L High [facility] Calcium.ionized [Mass/Vol] 4.6 mg/dL 4.5 - 5.3 mg/dL [facility] Carboxyhemoglobin (BldA) [Mass fraction] 2.9 High <=1.5 % of total Hb [facility] Comment on above: Reference Ranges: [place] Non-smokers: <1.5% Smokers: 1.5-5.0% Heavy Smokers: 5.0-9.0% CO2 (BldV) [Partial pressure] 53.7 mm[Hg] High [facility] Glucose [Mass/Vol] 94 mg/dL 65 - 99 mg/dL [facility] HCO3 (Bld) [Moles/Vol] 29.9 mmol/L High 24.0 - 28.0 mmol/L [facility] Hematocrit (BldA) [Volume fraction] 49.0 % 41.0 - 53.0 % [facility] Hemoglobin (Bld) [Mass/Vol] 16.0 g/dL 13.5 - 17.5 g/dL [facility] Interpretation and review of laboratory results Abnormal [facility] Lactate [Moles/Vol] 1.6 mmol/L 0.6 - 2. 0 mmol/L [facility] Methemoglobin (BldA) [Mass fraction] 0.5 % 0.0 - 2.0 % [facility] Oxygen (BldV) [Partial pressure] 36 mm[Hg] [facility] Oxygen saturation in Venous blood 63.1 % 40.0 - 70.0 % [facility] Oxyhemoglobin (BldA) [Mass fraction] 61.0 % No established reference range [facility] pH (BldV) 7.37 [pH] [facility] Potassium [Moles/Vol] 4.1 mmol/L 3.5 - 5.1 mmol/L [facility] Sodium [Moles/Vol] 139 mmol/L 135 - 145 mmol/L [facility] CBC Auto Differentialon 08-06 Basophils (Bld) [#/Vol] 0.11 10*3/uL [facility] Basophils/100 WBC (Bld) 0.5 % [facility] Eosinophils (Bld) [#/Vol] 0.06 10*3/uL [facility] Eosinophils/100 WBC (Bld) 0.3 % [facility] Erythrocyte distribution width (RBC) [Entitic vol] 13.2 % 11.6 - 14.8 % [facility] Hematocrit (Bld) [Volume fraction] 47.5 % 41.0 - 53.0 % [facility] Hemoglobin (Bld) [Mass/Vol] 15.9 g/dL 13.5 - 17.5 g/dL [facility] Immature granulocytes (Bld) [#/Vol] 0.23 10*3/uL [facility] Immature granulocytes/100 WBC (Bld) 1.00 % [facility] Comment on above: The IG parameter is the percentage of metamyelocytes, myelocytes and promyelocytes. An immature granulocyte count (IG) of 1% or more suggests the possibility of infection, an IG count of 3% is very likely related to an infection. Interpretation and review of laboratory results Abnormal [facility] Lymphocytes (Bld) [#/Vol] 1.36 10*3/uL [facility] Lymphocytes/100 WBC (Bld) 6.1 % [facility] MCH (RBC) [Entitic mass] 32.1 pg 26.0 - 34.0 pg [facility] MCHC (RBC) [Mass/Vol] 33.5 g/dL 31.0 - 37.0 g/dL [facility] MCV (RBC) [Entitic vol] 96.0 fL 80.0 - 100.0 fL [facility] Monocytes (Bld) [#/Vol] 1.31 10*3/uL High [facility] Monocytes/100 WBC (Bld) 5.8 % [facility] Neutrophils (Bld) [#/Vol] 19.36 10*3/uL [facility] Neutrophils/100 WBC (Bld) 86.3 % [facility] Nucleated RBC (Bld) [#/Vol] 0.00 10*3/uL [facility] Nucleated RBC/100 WBC (Bld) [Ratio] 0.0 % [facility] Platelet mean volume (Bld) [Entitic vol] 8.9 fL Low 9.4 - 12.4 fL [facility] Platelets (Bld) [#/Vol] 346 10*3/uL [facility] RBC (Bld) [#/Vol] 4.95 10*6/uL [facility] ealth WBC (Bld) [#/Vol] 22.43 10*3/uL [facility] COVID-19, MolecularOrdered B y: Lorena Metcalf on 08-19-2021 SARS-CoV-2 (COVID-19) RNA MOMO+probe Ql (Resp) Not detected Not Detected [facility] CT Pulmonary Arterieson 08-06 No evidence of pulmonary embolism. Extensive diffuse centrilobular pulmonary emphysema. Mild areas of patchy opacities are noted in the left mid to lower lung which could represent areas of fibrosis, less likely infectious/inflammatory process. Workstation ID: [id number] [employer] [facility] EXAMINATION: CTA OF THE CHEST 08/19/2021 TECHNIQUE: [...] exacerbation of chronic obstructive pulmonary disease (COPD) ([facility]) J96.01 Acute respiratory failure with hypoxia ([facility]) R00.0 Tachycardia FINDINGS: Pulmonary Arteries: Pulmonary arteries [...] No acute bone or soft tissue abnormality. [employer] Shakira Win MD - 08/19/2021 EXAMINATION: CTA [...] exacerbation of chronic obstructive pulmonary disease (COPD) ([facility]) J96.01 Acute respiratory failure with hypoxia ([facility]) R00.0 Tachycardia FINDINGS: Pulmonary Arteries: Pulmonary arteries [...] less likely infectious/inflammatory process. Workstation ID: [id number] [facility] Radiology Study observation (narrative) [facility] CT Pulmonary ArteriesOrdered By: Shakira Albrecht on 08-19-2021 [facility] Work Phone: D-Dimer, QuantitativeOrdered By: Elpidio Eisenberg on 08-19-2021 Fibrin D-dimer FEU (PPP) [Mass/Vol] 0.54 High 0.27 - 0.49 mcg/mL FEU [facility] Interpretation and review of laboratory results Abnormal [facility] A D-dimer concentrat ion of <0.5 micrograms per milliliter FEU is considered a low probability for pulmonary embolus (PE) and deep venous thrombosis (DVT). Results of this test should always be interpreted in conjunction with the patient's medical history,clinical presentation, and other findings. Clinical diagnosis should not be based on the results of the D-dimer alone. [facility] EKG 12-leadon 08-19-2021 Interpretation and review of laboratory results Abnormal [facility] Paige Perla MD 08/19/2021 5:32 PM EKG 12-lead Date/Time: 08/19/2021 5:32 PM Performed by: Paige Perla MD Authorized by: Zoe Moreira CNP Interpreted by ED attending physician Rhythm: sinus rhythm and sinus tachycardia BPM: 120 Conduction: conduction normal ST Segments: ST segments normal T Flattening: I and V2 Clinical impression: abnormal ECG and sinus tachycardia [facility] Munoz Topon 08-19-2021 Extra Tube Hold for add-ons. [facility] Comment on above: Auto resulted. [facility] NT Pro BNPon 08-19-2021 Natriuretic peptide.B prohormone N-Terminal [Mass/Vol] 67 pg/mL 0 - 300 pg/mL [facility] Natriuretic peptide.B prohor mary N-Terminal [Mass/Vol]on 08-19-2021 Interpretation and review of laboratory results Normal [facility] Pride Study Cut-offs Rule In: < /= 50 Years >450 pg/mL 51 Years - 75 Years >900 pg/mL 76 Years - 99 Years >1800 pg/mL Rule Out: All patients <300 pg/mL [facility] No Panel Informationon 08-19 Extra Tube Hold for add-ons. [facility] Comment on above: Auto resulted. [facility] Extra Tube Hold for add-ons. [facility] Comment on above: Auto resulted. [facility] SARS-CoV-2 (COVID-19) RNA NA A+probe Ql (Resp)Ordered By: Lorena Metcalf on 08-19-2021 Interpretation and review of laboratory results Normal [facility] This test was perfor med under [...] the following links: For Healthcare Providers: https://www.fda.gov/media /311820/download For Patients: https://www.fda.gov/media /565834/download [facility] Troponinon 08-19-2021 Troponin T 15 ng/L <=22 [facility] Troponin T Interpretation Normal [facility] Troponin Onceon 08-19-2021 Delta Difference Troponin T -4 ng/L < = -/+ 7 change [facility] Interp Troponin T Delta Change No biomarker evidence of cardiac injury. [facility] Troponin T 11 ng/L <=22 [facility] XR Chest 1 Viewon 08-19-2021 1. No acute cardiopulmonary process identified. Workstation ID: [id number] GE RIS EXAMINATION: ONE XRAY VIEW OF [...] No acute cardiopulmonary process identified. Workstation ID: [id number] [facility] Radiology Study observation (narrative) [facility] XR Chest 1 ViewOrdered By: Casey Mercedes on 08-19-2021 [facility] Work Phone: AIRWAY ETTon 01-28-2021 George aFm II 01/28/2021 2:48 PM ETT Airway Mask [...] tape Bite block: soft Lip/tooth/tongue trauma: no [facility] SPINAL BLOCKon 01-28-2021 George Fam II [...] and timeout performed Procedure Monitoring: heart rate, cardiac technician, pulse oximetry and BP Patient sedated with [...] the procedure well with no immediate complications [facility] MRSA Culture/ScreenOrdered B y: Simba Christina on 01-16-2021 MRSA isol Org specific cx Ql (Unsp spec) Heavy Growth Staphylococcus aureus Abnormal [facility] MRSA isol Org specific cx Ql (Unsp spec)Ordered By: Simba Christina on 01-16-2021 Interpretation and review of laboratory results Abnormal [facility] APTTon 01-14-2021 aPTT Coag (Bld) [Time] 29 s [facility] Albuminon 01-14-2021 Albumin [Mass/Vol] 4.1 g/dL 3.2 - 5.2 g/dL [facility] Albumin [Mass/Vol]on 021 Interpretation and review of laboratory results Normal [facility] Basic metabolic 2000 panelon 01-14-2021 Anion gap [Moles/Vol] 14 mmol/L 10 - 2 0 mmol/L [facility] Calcium [Mass/Vol] 9.0 mg/dL 8.4 - 10. 2 mg/dL [facility] Chloride [Moles/Vol] 97 mmol/L Low 98 - 10 8 mmol/L [facility] Creatinine [Mass/Vol] 0.76 mg/dL 0.50 - 1.30 [facility] GFR/1.73 sq M.predicted CKD-EPI (S/P/Bld) [Vol rate/Area] 99 >=60 mL/min/1.73 m2 [facility] Glucose [Mass/Vol] 114 mg/dL High 65 - 99 mg/dL [facility] H[facility]3 [Moles/Vol] 29 mmol/L 21 - 32 mmol/L [facility] Potassium [Moles/Vol] 3.5 mmol/L 3.5 - 5.1 mmol/L [facility] Sodium [Moles/Vol] 136 mmol/L 135 - 145 mmol/L [facility] Urea nitrogen [Mass/Vol] 9 mg/dL 8 - 25 mg/dL [facility] Urea nitrogen/Creatinine [Mass ratio] 11.8 mg/mg [facility] The eGFR should be u sed for monitoring renal function only and not for medication dosing. [facility] Blood type and Indirect anti body screen panel (Bld)on 01-14-2021 ABO and Rh group Nom (Bld) Blood group A Rh(D) negative [facility] Blood group antibody screen Ql Negative [facility] Specimen Expires 02/01/2021 23:59 EST [facility] CBC WITH AUTO DIFFERENTIALon 01-14-2021 Basophils (Bld) [#/Vol] 0.07 10*3/uL [facility] Basophils/100 WBC (Bld) 0.9 % [facility] Eosinophils (Bld) [#/Vol] 0.64 10*3/uL High [facility] Eosinophils/100 WBC (Bld) 8.7 % [facility] Erythrocyte distribution width (RBC) [Entitic vol] 13.3 % 11.6 - 14.8 % [facility] Hematocrit (Bld) [Volume fraction] 44.5 % 41.0 - 53.0 % [facility] Hemoglobin (Bld) [Mass/Vol] 14.5 g/dL 13.5 - 17.5 g/dL [facility] Immature granulocytes (Bld) [#/Vol] 0.01 10*3/uL [facility] Immature granulocytes/100 WBC (Bld) 0.10 % [facility] Comment on above: The IG parameter is the percentage of metamyelocytes, myelocytes and promyelocytes. An immature granulocyte count (IG) of 1% or more suggests the possibility of infection, an IG count of 3% is very likely related to an infection. Interpretation and review of laboratory results Abnormal [facility] Lymphocytes (Bld) [#/Vol] 1.93 10*3/uL [facility] Lymphocytes/100 WBC (Bld) 26.1 % [facility] MCH (RBC) [Entitic mass] 31.5 pg 26.0 - 34.0 pg [facility] MCHC (RBC) [Mass/Vol] 32.6 g/dL 31.0 - 37.0 g/dL [facility] MCV (RBC) [Entitic vol] 96.7 fL 80.0 - 100.0 fL [facility] Monocytes (Bld) [#/Vol] 0.70 10*3/uL [facility] Monocytes/100 WBC (Bld) 9.5 % [facility] Neutrophils (Bld) [#/Vol] 4.04 10*3/uL [facility] Neutrophils/100 WBC (Bld) 54.7 % [facility] Nucleated RBC (Bld) [#/Vol] 0.00 10*3/uL [facility] Nucleated RBC/100 WBC (Bld) [Ratio] 0.0 % [facility] Platelet mean volume (Bld) [Entitic vol] 9.1 fL Low 9.4 - 12.4 fL [facility] Platelets (Bld) [#/Vol] 253 10*3/uL [facility] RBC (Bld) [#/Vol] 4.60 10*6/uL [facility] WBC (Bld) [#/Vol] 7.39 10*3/uL [facility] eah [facility] CRP, Inflammationon 01-15-20 CRP [Mass/Vol] 15.5 mg/L High 0.0 - 10.0 mg/L [facility] ESR Westergren method (Bld) [Velocity]Ordered By: Brent Silva on 01-14-2021 ESR (Bld) [Velocity] 15 mm/h [facility] Interpretation and review of laboratory results Normal [facility] INR Coag (PPP) [Relative marlen e]on 01-14-2021 PT Coag (PPP) [Time] 12.7 s [facility] During the induction phase of oral anticoagulation, the INR may not reflect the anticoagulation status of the patient. Therapeutic ranges for INR's are: Most clinical situations: INR 2.0-3.0 Mechanical Prosthetic Valve: INR 2.5-3.5 Critical: INR >5.0 [facility] No Panel Informationon 01-14 Interpretation and review of laboratory results Abnormal [facility] Interpretation and review of laboratory results Normal [facility] PT/INRon 01-14-2021 INR Coag (PPP) [Relative time] 1.0 {INR} [facility] aPTT Coag (Bld) [Time]on Therapeutic range fo r APTT's is 68 - 104 seconds [facility] BLOOD GAS, VBG WITH FULL WILLARD ELOrdered By: Ugo Ochoa on 12-13-2020 Base excess Calc (BldV) [Moles/Vol] 4.8 mmol/L High [facility] Calcium.ionized [Mass/Vol] 4.3 mg/dL Low 4.5 - 5.3 mg/dL [facility] Carboxyhemoglobin (BldA) [Mass fraction] 7.0 High <=1.5 % of total Hb [facility] Comment on above: Reference Ranges: [place] Non-smokers: <1.5% Smokers: 1.5-5.0% Heavy Smokers: 5.0-9.0% CO2 (BldV) [Partial pressure] 42.3 mm[Hg] [facility] Glucose [Mass/Vol] 139 mg/dL High 65 - 99 mg/dL [facility] HCO3 (Bld) [Moles/Vol] 28.9 mmol/L High 24.0 - 28.0 mmol/L [facility] Hematocrit (BldA) [Volume fraction] 42.2 % 41.0 - 53.0 % [facility] Hemoglobin (Bld) [Mass/Vol] 13.7 g/dL 13.5 - 17.5 g/dL [facility] Interpretation and review of laboratory results Abnormal [facility] Lactate [Moles/Vol] 2.4 mmol/L High 0.6 - 2. 0 mmol/L [facility] Methemoglobin (BldA) [Mass fraction] 0.5 % 0.0 - 2.0 % [facility] Oxygen (BldV) [Partial pressure] 58 mm[Hg] High [facility] Oxygen saturation in Venous blood 92.7 % High 40.0 - 70.0 % [facility] Oxyhemoglobin (BldA) [Mass fraction] 85.7 % No established reference range [facility] pH (BldV) 7.45 [pH] High [facility] Potassium [Moles/Vol] 3.7 mmol/L 3.5 - 5.1 mmol/L [facility] Sodium [Moles/Vol] 138 mmol/L 135 - 145 mmol/L [facility] Type of Oxygen saturation device Unknown [facility] Basic metabolic 1998 panelOr dered By: Ugo Ochoa on 07-08-2021 Anion gap [Moles/Vol] 16 mmol/L 10 - 2 0 mmol/L [facility] Chloride [Moles/Vol] 100 mmol/L 98 - 10 8 mmol/L [facility] Creatinine [Mass/Vol] 0.74 mg/dL 0.50 - 1.30 [facility] GFR/1.73 sq M.predicted CKD-EPI (S/P/Bld) [Vol rate/Area] 100 >=60 mL/min/1.73 m2 [facility] Glucose [Mass/Vol] 135 mg/dL High 65 - 99 mg/dL [facility] HCO3 [Moles/Vol] 26 mmol/L 21 - 32 mmol/L [facility] Interpretation and review of laboratory results Abnormal [facility] Potassium [Moles/Vol] 3.2 mmol/L Low 3.5 - 5.1 mmol/L [facility] Sodium [Moles/Vol] 139 mmol/L 135 - 145 mmol/L [facility] Urea nitrogen [Mass/Vol] 7 mg/dL Low 8 - 25 mg/dL [facility] Urea nitrogen/Creatinine [Mass ratio] 9.5 mg/mg Low [facility] The eGFR should be u sed for monitoring renal function only and not for medication dosing. [facility] CBC WITH AUTO DIFFERENTIALOr dered By: Ugo Ochoa on 12-13-2020 Basophils (Bld) [#/Vol] 0.05 10*3/uL [facility] Basophils/100 WBC (Bld) 0.9 % [facility] Eosinophils (Bld) [#/Vol] 0.31 10*3/uL [facility] Eosinophils/100 WBC (Bld) 5.7 % [facility] Erythrocyte distribution width (RBC) [Entitic vol] 13.2 % 11.6 - 14.8 % [facility] Hematocrit (Bld) [Volume fraction] 40.8 % Low 41.0 - 53.0 % [facility] Hemoglobin (Bld) [Mass/Vol] 13.8 g/dL 13.5 - 17.5 g/dL [facility] Immature granulocytes (Bld) [#/Vol] 0.01 10*3/uL [facility] Immature granulocytes/100 WBC (Bld) 0.20 % [facility] Comment on above: The IG parameter is the percentage of metamyelocytes, myelocytes and promyelocytes. An immature granulocyte count (IG) of 1% or more suggests the possibility of infection, an IG count of 3% is very likely related to an infection. Interpretation and review of laboratory results Abnormal [facility] Lymphocytes (Bld) [#/Vol] 1.40 10*3/uL [facility] Lymphocytes/100 WBC (Bld) 25.8 % [facility] MCH (RBC) [Entitic mass] 31.8 pg 26.0 - 34.0 pg [facility] MCHC (RBC) [Mass/Vol] 33.8 g/dL 31.0 - 37.0 g/dL [facility] MCV (RBC) [Entitic vol] 94.0 fL 80.0 - 100.0 fL [facility] Monocytes (Bld) [#/Vol] 0.50 10*3/uL [facility] Monocytes/100 WBC (Bld) 9.2 % [facility] Neutrophils (Bld) [#/Vol] 3.16 10*3/uL [facility] Neutrophils/100 WBC (Bld) 58.2 % [facility] Nucleated RBC (Bld) [#/Vol] 0.00 10*3/uL [facility] Nucleated RBC/100 WBC (Bld) [Ratio] 0.0 % [facility] Platelet mean volume (Bld) [Entitic vol] 10.0 fL 9.4 - 12.4 fL [facility] Platelets (Bld) [#/Vol] 222 10*3/uL [facility] RBC (Bld) [#/Vol] 4.34 10*6/uL Low [facility] ealt WBC (Bld) [#/Vol] 5.43 10*3/uL [facility] eah [facility] ECG 12-LEADOrdered By: Cardi ologist Generic on 12-13-2020 Atrial Rate 93 BPM [facility] P [place] 79 degrees [facility] P-R Interval 166 ms [facility] Q-T Interval 362 ms [facility] QRS Duration 108 ms [facility] QTC Calculation (Bezet) 450 ms [facility] R [place] 52 degrees [facility] T [place] 79 degrees [facility] Ventricular Rate 93 BPM [facility] th Normal sinus rhythm Septal infarct , age undetermined Abnormal ECG When compared with ECG of 21-SEP-2020 11:16, Septal infarct is now Present Confirmed by Physician, ED ([id number]), food expeditor CARMEN FLEMING ([id number]) on 12/13/2020 12:49:33 PM [facility] EKGOrdered By: Provider Syst em on 12-13-2020 Ordered by an unspec ified provider. [facility] INR Coag (PPP) [Relative marlen e]Ordered By: Ugo Ochoa on 12-13-2020 Interpretation and review of laboratory results Normal [facility] PT Coag (PPP) [Time] 11.9 s [facility] During the induction phase of oral anticoagulation, the INR may not reflect the anticoagulation status of the patient. Therapeutic ranges for INR's are: Most clinical situations: INR 2.0-3.0 Mechanical Prosthetic Valve: INR 2.5-3.5 Critical: INR >5.0 [facility] Obtain venous blood gases an d performOrdered By: Ugo Ochoa on 12-13-2020 [facility] PT/INROrdered By: Ugo palumbo on 12-13-2020 INR Coag (PPP) [Relative time] 0.9 {INR} [facility] SARS-CoV-2 (COVID-19) RdRp g ulices MOMO+probe Ql (Resp)Ordered By: Kvng Baker on 12-13-2020 Interpretation and review of laboratory results Normal [facility] SARS-CoV-2 (COVID-19) RNA MOMO+probe Ql (Resp) Not detected Not Detected [facility] This test was perfor med under [...] the following links: For Healthcare Providers: https://www.fda.gov/media /711958/download For Patients: https://www.fda.gov/media /421266/download [facility] XR Chest 1 ViewOrdered By: Duran Ochoa on 12-13-2020 1. No obvious radiop aque foreign body. 2. Elevated right hemidiaphragm with chronic right basilar opacity. 3. Improved aeration of the left lung since the prior exam. Workstation ID: [id number] [facility] EXAMINATION: ONE XRAY VIEW OF THE [...] are unchanged. The bones are grossly intact. [facility], Rad In Fu ji Speechq - [...] since the prior exam. Workstation ID: [id number] [facility] XR Hip Right 2-3 Views (Rout ine)Ordered By: Triage Emergency on 10-03-2020 No acute abnormality of the right hip. Severe osteoarthritic changes of the right hip joint which appears slightly increased. Workstation ID: [id number] [facility] EXAMINATION: TWO XRA Y VIEWS OF [...] subchondral sclerosis. No acute fracture. No dislocation. [facility] Interface, Rad In Fu ji Speechq [...] which appears slightly increased. Workstation ID: [id number] [facility] BLOOD GAS, VBG WITH FULL WILLARD ELOrdered By: Ugo Ochoa on 09-21-2020 Base excess Calc (BldV) [Moles/Vol] 3.9 mmol/L High [facility] Calcium.ionized [Mass/Vol] 4.8 mg/dL 4.5 - 5.3 mg/dL [facility] Carboxyhemoglobin (BldA) [Mass fraction] 2.7 High <=1.5 % of total Hb [facility] Comment on above: Reference Ranges: [place] Non-smokers: <1.5% Smokers: 1.5-5.0% Heavy Smokers: 5.0-9.0% CO2 (BldV) [Partial pressure] 58.5 mm[Hg] High [facility] Glucose [Mass/Vol] 100 mg/dL High 65 - 99 mg/dL [facility] HCO3 (Bld) [Moles/Vol] 30.9 mmol/L High 24.0 - 28.0 mmol/L [facility] Hematocrit (BldA) [Volume fraction] 45.6 % 41.0 - 53.0 % [facility] Hemoglobin (Bld) [Mass/Vol] 14.9 g/dL 13.5 - 17.5 g/dL [facility] Interpretation and review of laboratory results Abnormal [facility] Lactate [Moles/Vol] 1.2 mmol/L 0.6 - 2. 0 mmol/L [facility] Methemoglobin (BldA) [Mass fraction] 0.3 % 0.0 - 2.0 % [facility] Oxygen (BldV) [Partial pressure] 33 mm[Hg] [facility] Oxygen saturation in Venous blood 59.3 % 40.0 - 70.0 % [facility] Oxyhemoglobin (BldA) [Mass fraction] 57.5 % No established reference range [facility] pH (BldV) 7.34 [pH] [facility] Potassium [Moles/Vol] 3.7 mmol/L 3.5 - 5.1 mmol/L [facility] Sodium [Moles/Vol] 141 mmol/L 135 - 145 mmol/L [facility] Basic metabolic 2000 panelOr dered By: Laci Johnson on 09-21-2020 Anion gap [Moles/Vol] 11 mmol/L 10 - 2 0 mmol/L [facility] Calcium [Mass/Vol] 8.8 mg/dL 8.4 - 10. 2 mg/dL [facility] Chloride [Moles/Vol] 101 mmol/L 98 - 10 8 mmol/L [facility] Creatinine [Mass/Vol] 0.72 mg/dL 0.50 - 1.30 [facility] GFR/1.73 sq M.predicted CKD-EPI (S/P/Bld) [Vol rate/Area] 101 >=60 mL/min/1.73 m2 [facility] Glucose [Mass/Vol] 111 mg/dL High 65 - 99 mg/dL [facility] HCO3 [Moles/Vol] 29 mmol/L 21 - 32 mmol/L [facility] Interpretation and review of laboratory results Abnormal [facility] Potassium [Moles/Vol] 3.6 mmol/L 3.5 - 5.1 mmol/L [facility] Sodium [Moles/Vol] 137 mmol/L 135 - 145 mmol/L [facility] Urea nitrogen [Mass/Vol] 10 mg/dL 8 - 25 mg/dL [facility] Urea nitrogen/Creatinine [Mass ratio] 13.9 mg/mg [facility] The eGFR should be u sed for monitoring renal function only and not for medication dosing. [facility] CBC WITH AUTO DIFFERENTIALOr dered By: Laci Johnson on 09-21-2020 Basophils (Bld) [#/Vol] 0.07 10*3/uL [facility] Basophils/100 WBC (Bld) 0.9 % [facility] Eosinophils (Bld) [#/Vol] 0.83 10*3/uL High [facility] Eosinophils/100 WBC (Bld) 10.8 % [facility] Erythrocyte distribution width (RBC) [Entitic vol] 13.3 % 11.6 - 14.8 % [facility] Hematocrit (Bld) [Volume fraction] 43.7 % 41.0 - 53.0 % [facility] Hemoglobin (Bld) [Mass/Vol] 14.2 g/dL 13.5 - 17.5 g/dL [facility] Immature granulocytes (Bld) [#/Vol] 0.02 10*3/uL [facility] Immature granulocytes/100 WBC (Bld) 0.30 % [facility] Comment on above: The IG parameter is the percentage of metamyelocytes, myelocytes and promyelocytes. An immature granulocyte count (IG) of 1% or more suggests the possibility of infection, an IG count of 3% is very likely related to an infection. Interpretation and review of laboratory results Abnormal [facility] Lymphocytes (Bld) [#/Vol] 1.25 10*3/uL [facility] Lymphocytes/100 WBC (Bld) 16.3 % [facility] MCH (RBC) [Entitic mass] 30.7 pg 26.0 - 34.0 pg [facility] MCHC (RBC) [Mass/Vol] 32.5 g/dL 31.0 - 37.0 g/dL [facility] MCV (RBC) [Entitic vol] 94.6 fL 80.0 - 100.0 fL [facility] Monocytes (Bld) [#/Vol] 0.55 10*3/uL [facility] Monocytes/100 WBC (Bld) 7.2 % [facility] Neutrophils (Bld) [#/Vol] 4.93 10*3/uL [facility] Neutrophils/100 WBC (Bld) 64.5 % [facility] Nucleated RBC (Bld) [#/Vol] 0.00 10*3/uL [facility] Nucleated RBC/100 WBC (Bld) [Ratio] 0.0 % [facility] Platelet mean volume (Bld) [Entitic vol] 8.7 fL Low 9.4 - 12.4 fL [facility] Platelets (Bld) [#/Vol] 289 10*3/uL [facility] RBC (Bld) [#/Vol] 4.62 10*6/uL [facility] WBC (Bld) [#/Vol] 7.65 10*3/uL [facility] COVID-19/Influenza A,B Molec ularOrdered By: Laci Johnson on 09-21-2020 SARS-CoV-2 (COVID-19) RNA MOMO+probe Ql (Resp) Not detected Not Detected [facility] ECG 12-LEADOrdered By: Ugo Ochoa on [...] T waves normal Clinical impression: normal ECG [facility] ECG 12-LEADOrdered By: Miguel ologist Mendoza on 09-21-2020 Atrial Rate 99 BPM [facility] P [place] 82 degrees [facility] P-R Interval 150 ms [facility] Q-T Interval 346 ms [facility] QRS Duration 96 ms [facility] QTC Calculation (Bezet) 444 ms [facility] R [place] 74 degrees [facility] T [place] 73 degrees [facility] Ventricular Rate 99 BPM [facility] Normal sinus rhythm Normal ECG When compared with ECG of 13-AUG-2020 06:14, QRS axis Shifted left Confirmed by Physician, ED ([id number]), food expeditor CARMEN FLEMING ([id number]) on 09/21/2020 1:52:25 PM [facility] NT Pro BNPOrdered By: Laci Johnson on 09-21-2020 Natriuretic peptide.B prohormone N-Terminal [Mass/Vol] <50 0 - 300 pg/mL [facility] Natriuretic peptide.B prohor mary N-Terminal [Mass/Vol]Ordered By: Laci Johnson on 09-21-2020 Interpretation and review of laboratory results Normal [facility] Pride Study Cut-offs Rule In: < /= 50 Years >450 pg/mL 51 Years - 75 Years >900 pg/mL 76 Years - 99 Years >1800 pg/mL Rule Out: All patients <300 pg/mL [facility] No Panel InformationOrdered By: Ugo Ochoa on 09-21-2020 Extra Tube Hold for add-ons. [facility] Comment on above: Auto resulted. SARS-CoV-2 (COVID-19) RNA NA A+probe Ql (Resp)Ordered By: Laci Johnson on 09-21-2020 Influenza A Not detected Not Detected [facility] Interpretation and review of laboratory results Normal [facility] This test was perfor med under [...] the following links: For Healthcare Providers: https://www.fda.gov/media /886560/download For Patients: https://www.fda.gov/media /121614/download [facility] TROPONINOrdered By: Laci gustafson on 09-21-2020 Troponin T 12 ng/L <=22 [facility] Troponin T Interpretation Normal [facility] Basic Metabolic Panelon 03- Anion gap [Moles/Vol] 12 mmol/L 10 - 2 0 mmol/L [facility] Calcium [Mass/Vol] 8.6 mg/dL 8.4 - 10. 2 mg/dL [facility] Chloride [Moles/Vol] 102 mmol/L 98 - 10 8 mmol/L [facility] Creatinine [Mass/Vol] 0.53 mg/dL 0.50 - 1.30 Oh [facility] GFR/1.73 sq M predicted among non-blacks MDRD (S/P/Bld) [Vol rate/Area] The eGFR should be used for monitoring renal function only and not for medication dosing. [facility] GFR/1.73 sq M.predicted CKD-EPI (S/P/Bld) [Vol rate/Area] 115 >=60 mL/min/1.73 m2 [facility] Glucose [Mass/Vol] 108 mg/dL High 65 - 99 mg/dL [facility] HCO3 [Moles/Vol] 27 mmol/L 21 - 32 mmol/L [facility] Interpretation and review of laboratory results Abnormal [facility] Potassium [Moles/Vol] 3.7 mmol/L 3.5 - 5.1 mmol/L [facility] Sodium [Moles/Vol] 137 mmol/L 135 - 145 mmol/L [facility] Urea nitrogen [Mass/Vol] 13 mg/dL 8 - 25 mg/dL [facility] Urea nitrogen/Creatinine [Mass ratio] 24.5 mg/mg High [facility] CBC WITH AUTO DIFFERENTIALon 08-13-2020 Basophils (Bld) [#/Vol] 0.02 10*3/uL [facility] Basophils/100 WBC (Bld) 0.3 % [facility] Eosinophils (Bld) [#/Vol] 0.19 10*3/uL [facility] Eosinophils/100 WBC (Bld) 2.4 % [facility] Erythrocyte distribution width (RBC) [Entitic vol] 13.0 % 11.6 - 14.8 % [facility] Hematocrit (Bld) [Volume fraction] 36.7 % Low 41.0 - 53.0 % [facility] Hemoglobin (Bld) [Mass/Vol] 11.8 g/dL Low 13.5 - 17.5 g/dL [facility] Immature granulocytes (Bld) [#/Vol] 0.06 10*3/uL [facility] Immature granulocytes/100 WBC (Bld) 0.80 % [facility] Comment on above: The IG parameter is the percentage of metamyelocytes, myelocytes and promyelocytes. An immature granulocyte count (IG) of 1% or more suggests the possibility of infection, an IG count of 3% is very likely related to an infection. Interpretation and review of laboratory results Abnormal [facility] Lymphocytes (Bld) [#/Vol] 1.42 10*3/uL [facility] Lymphocytes/100 WBC (Bld) 18.0 % [facility] MCH (RBC) [Entitic mass] 31.0 pg 26.0 - 34.0 pg [facility] MCHC (RBC) [Mass/Vol] 32.2 g/dL 31.0 - 37.0 g/dL [facility] MCV (RBC) [Entitic vol] 96.3 fL 80.0 - 100.0 fL [facility] Monocytes (Bld) [#/Vol] 1.06 10*3/uL High [facility] Monocytes/100 WBC (Bld) 13.4 % [facility] Neutrophils (Bld) [#/Vol] 5.14 10*3/uL [facility] Neutrophils/100 WBC (Bld) 65.1 % [facility] Nucleated RBC (Bld) [#/Vol] 0.00 10*3/uL [facility] Nucleated RBC/100 WBC (Bld) [Ratio] 0.0 % [facility] Platelet mean volume (Bld) [Entitic vol] 9.3 fL Low 9.4 - 12.4 fL [facility] Platelets (Bld) [#/Vol] 275 10*3/uL [facility] RBC (Bld) [#/Vol] 3.81 10*6/uL Low [facility] ealth WBC (Bld) [#/Vol] 7.89 10*3/uL [facility] ealt ECG 12-LEADon 08-13-2020 Atrial Rate 97 BPM [facility] P [place] 119 degrees [facility] P-R Interval 144 ms [facility] Q-T Interval 338 ms [facility] QRS Duration 94 ms [facility] QTC Calculation (Bezet) 429 ms [facility] R [place] 128 degrees [facility] T [place] 115 degrees [facility] Ventricular Rate 97 BPM [facility] th Suspect arm lead reversal, interpretation assumes no reversal Normal sinus rhythm Right axis deviation Septal infarct , age undetermined Abnormal ECG When compared with ECG of 10-AUG-2020 10:44, QRS axis Shifted right Septal infarct is now Present Confirmed by NATHALIA BOYER, TAVON ([id number]) on 08/13/2020 2:20:21 PM [facility] Basic Metabolic Panelon Anion gap [Moles/Vol] 14 mmol/L 10 - 2 0 mmol/L [facility] Calcium [Mass/Vol] 9.0 mg/dL 8.4 - 10. 2 mg/dL [facility] Chloride [Moles/Vol] 98 mmol/L 98 - 10 8 mmol/L [facility] Creatinine [Mass/Vol] 0.55 mg/dL 0.50 - 1.30 [facility] GFR/1.73 sq M predicted among non-blacks MDRD (S/P/Bld) [Vol rate/Area] The eGFR should be used for monitoring renal function only and not for medication dosing. [facility] GFR/1.73 sq M.predicted CKD-EPI (S/P/Bld) [Vol rate/Area] 113 >=60 mL/min/1.73 m2 [facility] Glucose [Mass/Vol] 107 mg/dL High 65 - 99 mg/dL [facility] HCO3 [Moles/Vol] 28 mmol/L 21 - 32 mmol/L [facility] Interpretation and review of laboratory results Abnormal [facility] Potassium [Moles/Vol] 3.7 mmol/L 3.5 - 5.1 mmol/L [facility] Sodium [Moles/Vol] 136 mmol/L 135 - 145 mmol/L [facility] Urea nitrogen [Mass/Vol] 10 mg/dL 8 - 25 mg/dL [facility] Urea nitrogen/Creatinine [Mass ratio] 18.2 mg/mg [facility] CBC WITH AUTO DIFFERENTIALon 08-12-2020 Basophils (Bld) [#/Vol] 0.03 10*3/uL [facility] Basophils/100 WBC (Bld) 0.3 % [facility] Eosinophils (Bld) [#/Vol] 0.08 10*3/uL [facility] Eosinophils/100 WBC (Bld) 0.8 % [facility] Erythrocyte distribution width (RBC) [Entitic vol] 12.8 % 11.6 - 14.8 % [facility] Hematocrit (Bld) [Volume fraction] 39.0 % Low 41.0 - 53.0 % [facility] Hemoglobin (Bld) [Mass/Vol] 12.7 g/dL Low 13.5 - 17.5 g/dL [facility] Immature granulocytes (Bld) [#/Vol] 0.04 10*3/uL [facility] Immature granulocytes/100 WBC (Bld) 0.40 % [facility] Comment on above: The IG parameter is the percentage of metamyelocytes, myelocytes and promyelocytes. An immature granulocyte count (IG) of 1% or more suggests the possibility of infection, an IG count of 3% is very likely related to an infection. Interpretation and review of laboratory results Abnormal [facility] Lymphocytes (Bld) [#/Vol] 1.08 10*3/uL [facility] Lymphocytes/100 WBC (Bld) 11.0 % [facility] MCH (RBC) [Entitic mass] 31.3 pg 26.0 - 34.0 pg [facility] MCHC (RBC) [Mass/Vol] 32.6 g/dL 31.0 - 37.0 g/dL [facility] MCV (RBC) [Entitic vol] 96.1 fL 80.0 - 100.0 fL [facility] Monocytes (Bld) [#/Vol] 1.38 10*3/uL High [facility] Monocytes/100 WBC (Bld) 14.0 % [facility] Neutrophils (Bld) [#/Vol] 7.22 10*3/uL High [facility] Neutrophils/100 WBC (Bld) 73.5 % [facility] Nucleated RBC (Bld) [#/Vol] 0.00 10*3/uL [facility] Nucleated RBC/100 WBC (Bld) [Ratio] 0.0 % [facility] Platelet mean volume (Bld) [Entitic vol] 9.5 fL 9.4 - 12.4 fL [facility] Platelets (Bld) [#/Vol] 247 10*3/uL [facility] RBC (Bld) [#/Vol] 4.06 10*6/uL Low [facility] ealth WBC (Bld) [#/Vol] 9.83 10*3/uL [facility] eah Sputum Aerobic Cultureon Bacteria identified Aer cx Nom (Sput) Moderate Growth Staphylococcus aureus Abnormal [facility] Comment on above: This Staphylococcus aureus is Methicillin SUSCEPTIBLE by PBP2a testing. Beta-lactams like Cefazolin and Nafcillin are superior to Vancomycin for treating mSsa. Bacteria identified Aer cx Nom (Sput) Heavy Growth Normal Respiratory [facility] Interpretation and review of laboratory results Abnormal [facility] Microscopic observation Gram stain Nom (Sput) Positive [facility] Microscopic observation Gram stain Nom (Sput) Rare Epithelial Cells [facility] Microscopic observation Gram stain Nom (Sput) Many WBC [facility] Ultrasound duplex venous leg righton 08-12-2020 Patient Info Name: WOLF TURCIOS Age: 60 years : 1960 Gender: Male Exam Date: 08/12/2020 9:37 AM Patient Status: Inpatient Staff Referring Physician: ESAU Huffman; Attending Physician: [facility] Indications - RLE edema, eval DVT Procedure Description 47931 Duplex examination using B-mode, color and spectral [...] So MD, RPVI on 08/12/2020 09:16 PM [facility] Interface, Rad In Heartlab Xper Echopacs - 08/12/2020 9:17 PM EST Patient Info Name: WOLF TURCIOS Age: 60 years : 1960 Gender: Male Exam Date: 08/12/2020 9:37 AM Patient Status: Inpatient Staff Referring Physician: ESAU Huffman; Attending Physician: [facility] Indications - RLE edema, eval DVT Procedure Description [id number] Duplex examination using B-mode, color and spectral [...] So MD, RPVI on 08/12/2020 09:16 PM [facility] BLOOD GAS, VBG WITH FULL WILLARD Jarod 08-11-2020 Base excess Calc (BldV) [Moles/Vol] 3.8 mmol/L High [facility] Calcium.ionized [Mass/Vol] 4.3 mg/dL Low 4.5 - 5.3 mg/dL [facility] Carboxyhemoglobin (BldA) [Mass fraction] 2.9 High <=1.5 % of total Hb [facility] Comment on above: Reference Ranges: [place] Non-smokers: <1.5% Smokers: 1.5-5.0% Heavy Smokers: 5.0-9.0% CO2 (BldV) [Partial pressure] 40.6 mm[Hg] Low [facility] Glucose [Mass/Vol] 99 mg/dL 65 - 99 mg/dL [facility] HCO3 (Bld) [Moles/Vol] 27.6 mmol/L 24.0 - 28.0 mmol/L [facility] Hematocrit (BldA) [Volume fraction] 37.7 % Low 41.0 - 53.0 % [facility] Hemoglobin (Bld) [Mass/Vol] 12.3 g/dL Low 13.5 - 17.5 g/dL [facility] Interpretation and review of laboratory results Abnormal [facility] Lactate [Moles/Vol] 0.8 mmol/L 0.6 - 2. 0 mmol/L [facility] Methemoglobin (BldA) [Mass fraction] 0.3 % 0.0 - 2.0 % [facility] Oxygen (BldV) [Partial pressure] 101 mm[Hg] High [facility] Oxygen saturation in Venous blood 98.2 % High 40.0 - 70.0 % [facility] Oxyhemoglobin (BldA) [Mass fraction] 95.1 % No established reference range [facility] pH (BldV) 7.45 [pH] High [facility] Potassium [Moles/Vol] 3.5 mmol/L 3.5 - 5.1 mmol/L [facility] Sodium [Moles/Vol] 135 mmol/L 135 - 145 mmol/L [facility] Basic Metabolic Panelon Anion gap [Moles/Vol] 14 mmol/L 10 - 2 0 mmol/L [facility] Calcium [Mass/Vol] 8.1 mg/dL Low 8.4 - 10. 2 mg/dL [facility] Chloride [Moles/Vol] 102 mmol/L 98 - 10 8 mmol/L [facility] Creatinine [Mass/Vol] 0.52 mg/dL 0.50 - 1.30 [facility] GFR/1.73 sq M predicted among non-blacks MDRD (S/P/Bld) [Vol rate/Area] The eGFR should be used for monitoring renal function only and not for medication dosing. [facility] GFR/1.73 sq M.predicted CKD-EPI (S/P/Bld) [Vol rate/Area] 116 >=60 mL/min/1.73 m2 [facility] Glucose [Mass/Vol] 86 mg/dL 65 - 99 mg/dL [facility] HCO3 [Moles/Vol] 25 mmol/L 21 - 32 mmol/L [facility] Interpretation and review of laboratory results Abnormal [facility] Potassium [Moles/Vol] 3.7 mmol/L 3.5 - 5.1 mmol/L [facility] Sodium [Moles/Vol] 137 mmol/L 135 - 145 mmol/L [facility] Urea nitrogen [Mass/Vol] 8 mg/dL 8 - 25 mg/dL [facility] Urea nitrogen/Creatinine [Mass ratio] 15.4 mg/mg [facility] CBC WITH AUTO DIFFERENTIALon 08-11-2020 Basophils (Bld) [#/Vol] 0.03 10*3/uL [facility] Basophils/100 WBC (Bld) 0.3 % [facility] Eosinophils (Bld) [#/Vol] 0.54 10*3/uL High [facility] Eosinophils/100 WBC (Bld) 5.9 % [facility] Erythrocyte distribution width (RBC) [Entitic vol] 13.1 % 11.6 - 14.8 % [facility] Hematocrit (Bld) [Volume fraction] 38.3 % Low 41.0 - 53.0 % [facility] Hemoglobin (Bld) [Mass/Vol] 12.4 g/dL Low 13.5 - 17.5 g/dL [facility] Immature granulocytes (Bld) [#/Vol] 0.03 10*3/uL [facility] Immature granulocytes/100 WBC (Bld) 0.30 % [facility] Comment on above: The IG parameter is the percentage of metamyelocytes, myelocytes and promyelocytes. An immature granulocyte count (IG) of 1% or more suggests the possibility of infection, an IG count of 3% is very likely related to an infection. Interpretation and review of laboratory results Abnormal [facility] Lymphocytes (Bld) [#/Vol] 0.89 10*3/uL Low [facility] Lymphocytes/100 WBC (Bld) 9.8 % [facility] MCH (RBC) [Entitic mass] 31.4 pg 26.0 - 34.0 pg [facility] MCHC (RBC) [Mass/Vol] 32.4 g/dL 31.0 - 37.0 g/dL [facility] MCV (RBC) [Entitic vol] 97.0 fL 80.0 - 100.0 fL [facility] Monocytes (Bld) [#/Vol] 1.14 10*3/uL High [facility] Monocytes/100 WBC (Bld) 12.5 % [facility] Neutrophils (Bld) [#/Vol] 6.46 10*3/uL [facility] Neutrophils/100 WBC (Bld) 71.2 % [facility] Nucleated RBC (Bld) [#/Vol] 0.00 10*3/uL [facility] Nucleated RBC/100 WBC (Bld) [Ratio] 0.0 % [facility] Platelet mean volume (Bld) [Entitic vol] 9.6 fL 9.4 - 12.4 fL [facility] Platelets (Bld) [#/Vol] 185 10*3/uL [facility] RBC (Bld) [#/Vol] 3.95 10*6/uL Low [facility] eah WBC (Bld) [#/Vol] 9.09 10*3/uL [facility] Magn[facility] Levelon 08-11-2020 Interpretation and review of laboratory results Normal [facility] Magnesium [Mass/Vol] 1.8 mg/dL 1.6 - 2 .4 mg/dL [facility] Phosphoruson 08-11-2020 Interpretation and review of laboratory results Abnormal [facility] Phosphate [Mass/Vol] 2.1 mg/dL Low 2.7 - 4 .5 mg/dL [facility] Vancomycin Level, Troughon 0 08-11-2020 Interpretation and review of laboratory results Normal [facility] Vancomycin trough [Mass/Vol] 7.1 ug/mL [facility] XR CHEST AP/PA AND LATon EXAMINATION: [...] organism, unspecified whether acute organ dysfunction present ([facility]) J96.00 Acute respiratory failure, unspecified whether with hypoxia or hypercapnia ([facility]) FINDINGS: Unchanged eventration of the posterior right hemidiaphragm. Hyperinflated lungs with attenuation of pulmonary vasculature. Increased bilateral lower lobe airspace opacities, remaining worse on the left. No findings of pneumothorax. Trace bilateral pleural effusions. Normal mediastinal and cardiac contours. [facility] 1. Increased bilater al lower lobe airspace opacities worse on the left likely due to pneumonia or aspiration. Underlying atelectasis and scarring may be present. 2. Trace bilateral pleural effusions. 3. Emphysema better seen on CT. Workstation ID: [id number] [facility] Interface, Rad In Fu ji Speechq [...] organism, unspecified whether acute organ dysfunction present ([facility]) J96.00 Acute respiratory failure, unspecified whether with hypoxia or hypercapnia ([facility]) FINDINGS: Unchanged eventration of the posterior right [...] better seen on CT. Workstation ID: [id number] [facility] Basic Metabolic Panelon Anion gap [Moles/Vol] 12 mmol/L 10 - 2 0 mmol/L [facility] Calcium [Mass/Vol] 7.7 mg/dL Low 8.4 - 10. 2 mg/dL [facility] Chloride [Moles/Vol] 105 mmol/L 98 - 10 8 mmol/L [facility] Creatinine [Mass/Vol] 0.60 mg/dL 0.50 - 1.30 [facility] GFR/1.73 sq M predicted among non-blacks MDRD (S/P/Bld) [Vol rate/Area] The eGFR should be used for monitoring renal function only and not for medication dosing. [facility] GFR/1.73 sq M.predicted CKD-EPI (S/P/Bld) [Vol rate/Area] 109 >=60 mL/min/1.73 m2 [facility] Glucose [Mass/Vol] 130 mg/dL High 65 - 99 mg/dL [facility] HCO3 [Moles/Vol] 24 mmol/L 21 - 32 mmol/L [facility] Interpretation and review of laboratory results Abnormal [facility] Potassium [Moles/Vol] 3.9 mmol/L 3.5 - 5.1 mmol/L [facility] Sodium [Moles/Vol] 137 mmol/L 135 - 145 mmol/L [facility] Urea nitrogen [Mass/Vol] 9 mg/dL 8 - 25 mg/dL [facility] Urea nitrogen/Creatinine [Mass ratio] 15.0 mg/mg [facility] CBC WITH AUTO DIFFERENTIALon 08-10-2020 Basophils (Bld) [#/Vol] 0.03 10*3/uL [facility] Basophils/100 WBC (Bld) 0.3 % [facility] Eosinophils (Bld) [#/Vol] 0.47 10*3/uL [facility] Eosinophils/100 WBC (Bld) 5.0 % [facility] Erythrocyte distribution width (RBC) [Entitic vol] 13.2 % 11.6 - 14.8 % [facility] Hematocrit (Bld) [Volume fraction] 38.1 % Low 41.0 - 53.0 % [facility] Hemoglobin (Bld) [Mass/Vol] 11.9 g/dL Low 13.5 - 17.5 g/dL [facility] Immature granulocytes (Bld) [#/Vol] 0.05 10*3/uL [facility] Immature granulocytes/100 WBC (Bld) 0.50 % [facility] Comment on above: The IG parameter is the percentage of metamyelocytes, myelocytes and promyelocytes. An immature granulocyte count (IG) of 1% or more suggests the possibility of infection, an IG count of 3% is very likely related to an infection. Interpretation and review of laboratory results Abnormal [facility] Lymphocytes (Bld) [#/Vol] 0.78 10*3/uL Low [facility] Lymphocytes/100 WBC (Bld) 8.3 % [facility] MCH (RBC) [Entitic mass] 31.2 pg 26.0 - 34.0 pg [facility] MCHC (RBC) [Mass/Vol] 31.2 g/dL 31.0 - 37.0 g/dL [facility] MCV (RBC) [Entitic vol] 99.7 fL 80.0 - 100.0 fL [facility] Monocytes (Bld) [#/Vol] 0.96 10*3/uL High [facility] Monocytes/100 WBC (Bld) 10.2 % [facility] Neutrophils (Bld) [#/Vol] 7.08 10*3/uL High [facility] Neutrophils/100 WBC (Bld) 75.7 % [facility] Nucleated RBC (Bld) [#/Vol] 0.00 10*3/uL [facility] Nucleated RBC/100 WBC (Bld) [Ratio] 0.0 % [facility] Platelet mean volume (Bld) [Entitic vol] 9.4 fL 9.4 - 12.4 fL [facility] Platelets (Bld) [#/Vol] 161 10*3/uL [facility] RBC (Bld) [#/Vol] 3.82 10*6/uL Low [facility] ealth WBC (Bld) [#/Vol] 9.37 10*3/uL [facility] ealth ECG 12-LEADon 08-10-2020 Atrial Rate 126 BPM [facility] P [place] 73 degrees [facility] P-R Interval 144 ms [facility] Q-T Interval 296 ms [facility] QRS Duration 88 ms [facility] QTC Calculation (Bezet) 428 ms [facility] R [place] 71 degrees [facility] T [place] 78 degrees [facility] Ventricular Rate 126 BPM [facility] th Sinus tachycardia Otherwise normal ECG When compared with ECG of 08-AUG-2020 22:49, No significant change was found Confirmed by Flores Duong ([id number]) on 08/10/2020 7:29:53 PM [facility] Atrial Rate 113 BPM [facility] P [place] 52 degrees [facility] P-R Interval 152 ms [facility] Q-T Interval 308 ms [facility] QRS Duration 96 ms [facility] QTC Calculation (Bezet) 422 ms [facility] R [place] 59 degrees [facility] T [place] 67 degrees [facility] Ventricular Rate 113 BPM [facility] th Sinus tachycardia Otherwise normal ECG When compared with ECG of 09-AUG-2020 16:30, (unconfirmed) No significant change was found Confirmed by Flores Duong ([id number]) on 08/10/2020 7:27:15 PM [facility] MRSA DNA Amplified Probeon 0 08-10-2020 Interpretation and review of laboratory results Abnormal [facility] MRSA DNA MOMO+probe Ql (Unsp spec) Positive Abnormal MRSA NEGATIVE [facility] TROPONINon 08-10-2020 Troponin T.cardiac [Mass/Vol] No biomarker evidence of cardiac injury. [facility] Troponin T.cardiac [Mass/Vol] 0 ng/L < = -/+ 7 change [facility] Troponin T.cardiac [Mass/Vol] 8 ng/L <=22 [facility] Troponin T.cardiac [Mass/Vol] 8 ng/L <=22 [facility] Troponin T.cardiac [Mass/Vol] Normal [facility] B12/Folateon 08-09-2020 Cobalamin (Vitamin B12) [Mass/Vol] 233 pg/mL 232 - 1245 pg/mL [facility] Folate [Mass/Vol] 9.7 ng/mL 3.1 - 17.5 ng/mL [facility] Comment on above: Deficient <2.2 Borderline 2.2 - 3.0 Excessive >17.5 BLOOD GAS, VBG WITH FULL WILLARD Jarod 08-09-2020 Base excess Calc (BldV) [Moles/Vol] 1.8 mmol/L [facility] Calcium.ionized [Mass/Vol] 4.3 mg/dL Low 4.5 - 5.3 mg/dL [facility] Carboxyhemoglobin (BldA) [Mass fraction] 2.5 High <=1.5 % of total Hb [facility] Comment on above: Reference Ranges: [facility] Non-smokers: <1.5% Smokers: 1.5-5.0% Heavy Smokers: 5.0-9.0% CO2 (BldV) [Partial pressure] 46.5 mm[Hg] [facility] Glucose [Mass/Vol] 108 mg/dL High 65 - 99 mg/dL [facility] HCO3 (Bld) [Moles/Vol] 26.9 mmol/L 24.0 - 28.0 mmol/L [facility] Hematocrit (BldA) [Volume fraction] 42.5 % 41.0 - 53.0 % [facility] Hemoglobin (Bld) [Mass/Vol] 13.8 g/dL 13.5 - 17.5 g/dL [facility] Interpretation and review of laboratory results Abnormal [facility] Lactate [Moles/Vol] 1.0 mmol/L 0.6 - 2. 0 mmol/L [facility] Methemoglobin (BldA) [Mass fraction] 0.4 % 0.0 - 2.0 % [facility] Oxygen (BldV) [Partial pressure] 58 mm[Hg] High [facility] Oxygen saturation in Venous blood 88.9 % High 40.0 - 70.0 % [facility] Oxyhemoglobin (BldA) [Mass fraction] 86.3 % No established reference range [facility] pH (BldV) 7.38 [pH] [facility] Potassium [Moles/Vol] 3.9 mmol/L 3.5 - 5.1 mmol/L [facility] Sodium [Moles/Vol] 135 mmol/L 135 - 145 mmol/L [facility] CBC WITH AUTO DIFFERENTIALon 08-09-2020 Basophils (Bld) [#/Vol] 0.04 10*3/uL [facility] Basophils/100 WBC (Bld) 0.2 % [facility] Eosinophils (Bld) [#/Vol] 0.19 10*3/uL [facility] Eosinophils/100 WBC (Bld) 1.1 % [facility] Erythrocyte distribution width (RBC) [Entitic vol] 13.5 % 11.6 - 14.8 % [facility] Hematocrit (Bld) [Volume fraction] 43.9 % 41.0 - 53.0 % [facility] Hemoglobin (Bld) [Mass/Vol] 13.9 g/dL 13.5 - 17.5 g/dL [facility] Immature granulocytes (Bld) [#/Vol] 0.14 10*3/uL [facility] Immature granulocytes/100 WBC (Bld) 0.80 % [facility] Comment on above: The IG parameter is the percentage of metamyelocytes, myelocytes and promyelocytes. An immature granulocyte count (IG) of 1% or more suggests the possibility of infection, an IG count of 3% is very likely related to an infection. Interpretation and review of laboratory results Abnormal [facility] Lymphocytes (Bld) [#/Vol] 0.98 10*3/uL [facility] Lymphocytes/100 WBC (Bld) 5.8 % [facility] MCH (RBC) [Entitic mass] 31.2 pg 26.0 - 34.0 pg [facility] MCHC (RBC) [Mass/Vol] 31.7 g/dL 31.0 - 37.0 g/dL [facility] MCV (RBC) [Entitic vol] 98.4 fL 80.0 - 100.0 fL [facility] Monocytes (Bld) [#/Vol] 1.64 10*3/uL High [facility] Monocytes/100 WBC (Bld) 9.7 % [facility] Neutrophils (Bld) [#/Vol] 13.85 10*3/uL High [facility] Neutrophils/100 WBC (Bld) 82.4 % [facility] Nucleated RBC (Bld) [#/Vol] 0.00 10*3/uL [facility] Nucleated RBC/100 WBC (Bld) [Ratio] 0.0 % [facility] Platelet mean volume (Bld) [Entitic vol] 10.0 fL 9.4 - 12.4 fL [facility] Platelets (Bld) [#/Vol] 162 10*3/uL [facility] RBC (Bld) [#/Vol] 4.46 10*6/uL Low [facility] ealth WBC (Bld) [#/Vol] 16.84 10*3/uL High [facility] Comprehensive Metabolic Pane samuel 08-09-2020 Albumin [Mass/Vol] 3.3 g/dL 3.2 - 5.2 g/dL [facility] ALP [Catalytic activity/Vol] 127 U/L 40 - 150 U/L [facility] ALT [Catalytic activity/Vol] 26 U/L 0 - 40 U/L [facility] Anion gap [Moles/Vol] 16 mmol/L 10 - 2 0 mmol/L [facility] AST [Catalytic activity/Vol] 22 U/L 0 - 45 U/L [facility] Bilirubin [Mass/Vol] 0.7 mg/dL 0.0 - 1 .3 mg/dL [facility] Calcium [Mass/Vol] 8.1 mg/dL Low 8.4 - 10. 2 mg/dL [facility] Chloride [Moles/Vol] 97 mmol/L Low 98 - 10 8 mmol/L [facility] Creatinine [Mass/Vol] 0.76 mg/dL 0.50 - 1.30 [facility] GFR/1.73 sq M predicted among non-blacks MDRD (S/P/Bld) [Vol rate/Area] The eGFR should be used for monitoring renal function only and not for medication dosing. [facility] GFR/1.73 sq M.predicted CKD-EPI (S/P/Bld) [Vol rate/Area] 99 >=60 mL/min/1.73 m2 [facility] Glucose [Mass/Vol] 84 mg/dL 65 - 99 mg/dL [facility] HCO3 [Moles/Vol] 26 mmol/L 21 - 32 mmol/L [facility] Potassium [Moles/Vol] 3.9 mmol/L 3.5 - 5.1 mmol/L [facility] Protein [Mass/Vol] 5.7 g/dL Low 6.0 - 8.0 g/dL [facility] Sodium [Moles/Vol] 135 mmol/L 135 - 145 mmol/L [facility] Urea nitrogen [Mass/Vol] 14 mg/dL 8 - 25 mg/dL [facility] Urea nitrogen/Creatinine [Mass ratio] 18.4 mg/mg [facility] DRUGS OF ABUSE SCREEN, URINE on 08-09-2020 Amphetamines Ql (U) None Detected None Detected [facility] Comment on above: Urine Amphetamine Cu toff: < 1000 ng/mL = None Detected Barbiturates Screen Ql (U) None Detected None Detected [facility] Comment on above: Urine Barbiturates C utoff: < 200 ng/mL = None Detected Benzodiazepines Ql (U) None Detected None Detected [facility] Comment on above: Urine Benzodiazepine Cutoff: < 200 ng/mL = None Detected Buprenorphine Ql (U) Positive Abnormal None Detected [facility] Comment on above: Urine Buprenorphine Cutoff: < 5 ng/mL = None Detected Cannabinoids Screen Ql (U) None Detected None Detected [facility] Comment on above: Urine Cannabinoids C utoff: < 50 ng/mL = None Detected Cocaine Ql (U) None Detected None Detected [facility] Comment on above: Urine Cocaine Cutoff : < 300 ng/mL = None Detected Fentanyl+Norfentanyl Screen Ql (U) None Detected None Detected [facility] Comment on above: Urine Fentanyl Cutof f: < 1 ng/mL = None Detected Interpretation and review of laboratory results Abnormal [facility] Methadone Screen Ql (U) None Detected None Detected [facility] Comment on above: Urine Methadone Cuto ff: < 300 ng/mL = None Detected Opiates Screen Ql (U) None Detected None Detect ed [facility] Comment on above: Urine Opiates Cutoff : < 300 ng/mL = None Detected Oxycodone Ql (U) None Detected None Detected [facility] Comment on above: Urine Oxycodone Cuto ff: < 100 ng/mL = None Detected Screen results shoul d be used for treatment purposes only. Specimen will be kept for 2 weeks, if the sample is adequate. Confirmation testing can be initiated by calling the lab within 2 weeks. [facility] ECG 12-LEADon 08-09-2020 Atrial Rate 126 BPM [facility] P [place] 79 degrees [facility] P-R Interval 142 ms [facility] Q-T Interval 288 ms [facility] QRS Duration 86 ms [facility] QTC Calculation (Bezet) 417 ms [facility] R [place] 74 degrees [facility] T [place] 80 degrees [facility] Ventricular Rate 126 BPM [facility] th Sinus tachycardia Otherwise normal ECG When compared with ECG of 26-JUL-2020 13:49, No significant change was found Confirmed by Physician, ED ([id number]), food expeditor CARMEN FLEMING ([id number]) on 08/09/2020 8:28:09 AM [facility] EKGon 08-09-2020 Ordered by an unspec ified provider. [facility] Hemoglobin A1con 08-09-2020 Average glucose Estimated from glycated hemoglobin mass conc (Bld) 108 mg/dL 74 - 114 mg/dL [facility] HbA1c (Bld) [Mass fraction] 5.4 % 4.2 - 5.6 % [facility] Interpretation and review of laboratory results Normal [facility] LEGIONELLA ANTIGEN, URINEon 08-09-2020 L. pneumophila Ag Ql (U) Negative Negative for Legionella antigen [facility] Comment on above: COMMENT: Results may be affected if patient is on diuretics. INTERPRETATION OF RESULTS: Test detects Legionella pneumophilia serogroup 1 antigens in urine. Legionnaires disease cannot be ruled out since other serogroups and species may also cause disease. MRSA DNA Amplified Probeon 0 08-09-2020 Interpretation and review of laboratory results Abnormal [facility] MRSA DNA MOMO+probe Ql (Unsp spec) Positive Abnormal MRSA NEGATIVE [facility] Magnesiumon 08-09-2020 Interpretation and review of laboratory results Normal [facility] Magnesium [Mass/Vol] 2.1 mg/dL 1.6 - 2 .4 mg/dL [facility] Otheron 08-09-2020 Interpretation and review of laboratory results Normal [facility] Interpretation and review of laboratory results Abnormal [facility] Interpretation and review of laboratory results Normal [facility] PT/INRon 08-09-2020 INR Coag (PPP) [Relative time] 1.1 {INR} [facility] Interpretation and review of laboratory results Normal [facility] PT Coag (PPP) [Time] 14.1 s [facility] During the induction phase of oral anticoagulation, the INR may not reflect the anticoagulation status of the patient. Therapeutic ranges for INR's are: Most clinical situations: INR 2.0-3.0 Mechanical Prosthetic Valve: INR 2.5-3.5 Critical: INR >5.0 [facility] Phosphoruson 08-09-2020 Phosphate [Mass/Vol] 2.4 mg/dL Low 2.7 - 4 .5 mg/dL [facility] S.PNEUMONIAE URINE ANTIGENon 08-09-2020 S. pneumoniae Ag Ql (U) Negative Presumptive Negative for Pneumococcal pneumoniae [facility] Comment on above: A negative result rice ggests no current or recent pneumococcal infection. A negative result does not rule out Streptococcus pneumoniae infection since the antigen present in the sample may be below the detection limit of the test. TSH with Reflex Free T4on TSH Qn 1.76 m[IU]/L [facility] URINALYSISon 08-09-2020 Bacteria Auto Ql (U) Rare Abnormal None Se en /hpf [facility] Bilirubin Ql (U) Negative [facility] Clarity Refractometry automated (U) Cloudy Abnormal Clear [facility] Color (U) Yenni Abnormal Colorless, Yellow [facility] Epithelial cells.squamous Auto (Urine sed) [#/Area] <1 [facility] Glucose Auto test strip (U) [Mass/Vol] Negative Negative mg/dL [facility] Hemoglobin Auto test strip Ql (U) Large Abnormal Negative [facility] Hyaline casts Auto (Urine sed) [#/Area] 0-2 0 - 2 /lpf [facility] Interpretation and review of laboratory results Abnormal [facility] Ketones (U) [Mass/Vol] Negative Negative mg/dL [facility] Leukocyte esterase Auto test strip Ql (U) Negative Negative [facility] Mucus Auto (Urine sed) [#/Area] Many Abnormal None Seen, Rare /lpf [facility] Nitrite Auto test strip Ql (U) Negative Negative [facility] pH (U) 6.0 [pH] [facility] Protein (U) [Mass/Vol] 100 Abnormal Negative mg/dL [facility] RBC Auto (Urine sed) [#/Area] 137 High [facility] RBC casts Computer assisted (U) [#/Area] 1 High [facility] Specific gravity (U) [Rel density] 1.037 High [facility] Urobilinogen (U) [Mass/Vol] >=4.0 Abnormal <2.0 mg/dL [facility] WBC Auto (Urine sed) [#/Area] 11 High [facility] Yeast.budding Computer assisted (U) [#/Area] Few Abnormal None Seen /hpf [facility] Microscopic examinat ion is performed on all urinalysis samples and only positive findings are reported. The test for blood on the chemical analytic portion of urinalysis may also be positive due to hemoglobinuria and myoglobinuria and if red blood cells are present they are quantified by microscopic examination. [facility] XR Chest 1 Viewon 08-09-2020 Interface, [...] also have this appearance. Workstation ID: [id number] [facility] EXAMINATION: ONE XRA Y VIEW OF [...] cardiac silhouette and osseous structures are stable. [facility] Left perihilar and l carlos base interstitial prominence is favored to reflect infection. Asymmetric pulmonary edema can also have this appearance. Workstation ID: [id number] [facility] CBC WITH AUTO DIFFERENTIALon 08-08-2020 Basophils (Bld) [#/Vol] 0.04 10*3/uL [facility] Basophils/100 WBC (Bld) 0.2 % [facility] Eosinophils (Bld) [#/Vol] 0.11 10*3/uL [facility] Eosinophils/100 WBC (Bld) 0.7 % [facility] Erythrocyte distribution width (RBC) [Entitic vol] 13.2 % 11.6 - 14.8 % [facility] Hematocrit (Bld) [Volume fraction] 45.9 % 41.0 - 53.0 % [facility] Hemoglobin (Bld) [Mass/Vol] 15.2 g/dL 13.5 - 17.5 g/dL [facility] Immature granulocytes (Bld) [#/Vol] 0.10 10*3/uL [facility] Immature granulocytes/100 WBC (Bld) 0.60 % [facility] Comment on above: The IG parameter is the percentage of metamyelocytes, myelocytes and promyelocytes. An immature granulocyte count (IG) of 1% or more suggests the possibility of infection, an IG count of 3% is very likely related to an infection. Interpretation and review of laboratory results Abnormal [facility] Lymphocytes (Bld) [#/Vol] 0.82 10*3/uL Low [facility] Lymphocytes/100 WBC (Bld) 5.0 % [facility] MCH (RBC) [Entitic mass] 31.4 pg 26.0 - 34.0 pg [facility] MCHC (RBC) [Mass/Vol] 33.1 g/dL 31.0 - 37.0 g/dL [facility] MCV (RBC) [Entitic vol] 94.8 fL 80.0 - 100.0 fL [facility] Monocytes (Bld) [#/Vol] 1.23 10*3/uL High [facility] Monocytes/100 WBC (Bld) 7.5 % [facility] Neutrophils (Bld) [#/Vol] 14.10 10*3/uL High [facility] Neutrophils/100 WBC (Bld) 86.0 % [facility] Nucleated RBC (Bld) [#/Vol] 0.00 10*3/uL [facility] Nucleated RBC/100 WBC (Bld) [Ratio] 0.0 % [facility] Platelet mean volume (Bld) [Entitic vol] 9.5 fL 9.4 - 12.4 fL [facility] Platelets (Bld) [#/Vol] 185 10*3/uL [facility] RBC (Bld) [#/Vol] 4.84 10*6/uL [facility] ealth WBC (Bld) [#/Vol] 16.40 10*3/uL [facility] COVID-19/Influenza A,B Molec ularon 08-08-2020 Influenza A Not Detected Not Detected [facility] Influenza B Not Detected Not Detected [facility] Interpretation and review of laboratory results Normal [facility] SARS-CoV-2 Not Detected Not Detected [facility] This test was perfor med under [...] the following links: For Healthcare Providers: https://www.fda.gov/media /059497/download For Patients: https://www.fda.gov/media /045258/download [facility] Chem 7on 08-08-2020 Anion gap [Moles/Vol] 18 mmol/L 10 - 2 0 mmol/L [facility] Chloride [Moles/Vol] 95 mmol/L Low 98 - 10 8 mmol/L [facility] Creatinine [Mass/Vol] 0.81 mg/dL 0.50 - 1.30 [facility] GFR/1.73 sq M predicted among non-blacks MDRD (S/P/Bld) [Vol rate/Area] The eGFR should be used for monitoring renal function only and not for medication dosing. [facility] GFR/1.73 sq M.predicted CKD-EPI (S/P/Bld) [Vol rate/Area] 97 >=60 mL/min/1.73 m2 [facility] Glucose [Mass/Vol] 131 mg/dL High 65 - 99 mg/dL [facility] HCO3 [Moles/Vol] 25 mmol/L 21 - 32 mmol/L [facility] Interpretation and review of laboratory results Abnormal [facility] Potassium [Moles/Vol] 4.2 mmol/L 3.5 - 5.1 mmol/L [facility] Sodium [Moles/Vol] 134 mmol/L Low 135 - 145 mmol/L [facility] Urea nitrogen [Mass/Vol] 13 mg/dL 8 - 25 mg/dL [facility] Urea nitrogen/Creatinine [Mass ratio] 16.0 mg/mg [facility] Lactic Acid, Plasmaon 2020 Interpretation and review of laboratory results Normal [facility] Lactate [Moles/Vol] 1.4 mmol/L 0.6 - 2. 0 mmol/L [facility] NT Pro BNPon 08-08-2020 Interpretation and review of laboratory results Normal [facility] Natriuretic peptide.B prohormone N-Terminal [Mass/Vol] 56 pg/mL 0 - 300 pg/mL [facility] Pride Study Cut-offs Rule In: < /= 50 Years >450 pg/mL 51 Years - 75 Years >900 pg/mL 76 Years - 99 Years >1800 pg/mL Rule Out: All patients <300 pg/mL [facility] Otheron 08-08-2020 Extra Tube Hold for add-ons. [facility] Comment on above: Auto resulted. TROPONINon 08-08-2020 Troponin T.cardiac [Mass/Vol] Normal [facility] Troponin T.cardiac [Mass/Vol] 13 ng/L <=22 [facility] BMPon 07-26-2020 Anion gap [Moles/Vol] 17 mmol/L 10 - 2 0 mmol/L [facility] Calcium [Mass/Vol] 8.9 mg/dL 8.4 - 10. 2 mg/dL [facility] Chloride [Moles/Vol] 97 mmol/L Low 98 - 10 8 mmol/L [facility] Creatinine [Mass/Vol] 0.91 mg/dL 0.50 - 1.30 [facility] GFR/1.73 sq M predicted among non-blacks MDRD (S/P/Bld) [Vol rate/Area] The eGFR should be used for monitoring renal function only and not for medication dosing. [facility] GFR/1.73 sq M.predicted CKD-EPI (S/P/Bld) [Vol rate/Area] 91 >=60 mL/min/1.73 m2 [facility] Glucose [Mass/Vol] 156 mg/dL High 65 - 99 mg/dL [facility] HCO3 [Moles/Vol] 29 mmol/L 21 - 32 mmol/L [facility] Interpretation and review of laboratory results Abnormal [facility] Potassium [Moles/Vol] 4.3 mmol/L 3.5 - 5.1 mmol/L [facility] Sodium [Moles/Vol] 139 mmol/L 135 - 145 mmol/L [facility] Urea nitrogen [Mass/Vol] 19 mg/dL 8 - 25 mg/dL [facility] Urea nitrogen/Creatinine [Mass ratio] 20.9 mg/mg High [facility] CBC WITH AUTO DIFFERENTIALon 07-26-2020 Basophils (Bld) [#/Vol] 0.05 10*3/uL [facility] Basophils/100 WBC (Bld) 0.5 % [facility] Eosinophils (Bld) [#/Vol] 0.11 10*3/uL [facility] Eosinophils/100 WBC (Bld) 1.0 % [facility] Erythrocyte distribution width (RBC) [Entitic vol] 13.7 % 11.6 - 14.8 % [facility] Hematocrit (Bld) [Volume fraction] 44.6 % 41.0 - 53.0 % [facility] Hemoglobin (Bld) [Mass/Vol] 14.4 g/dL 13.5 - 17.5 g/dL [facility] Immature granulocytes (Bld) [#/Vol] 0.35 10*3/uL High [facility] Immature granulocytes/100 WBC (Bld) 3.20 % [facility] Comment on above: The IG parameter is the percentage of metamyelocytes, myelocytes and promyelocytes. An immature granulocyte count (IG) of 1% or more suggests the possibility of infection, an IG count of 3% is very likely related to an infection. Interpretation and review of laboratory results Abnormal [facility] Lymphocytes (Bld) [#/Vol] 0.94 10*3/uL [facility] Lymphocytes/100 WBC (Bld) 8.5 % [facility] MCH (RBC) [Entitic mass] 31.4 pg 26.0 - 34.0 pg [facility] MCHC (RBC) [Mass/Vol] 32.3 g/dL 31.0 - 37.0 g/dL [facility] MCV (RBC) [Entitic vol] 97.4 fL 80.0 - 100.0 fL [facility] Monocytes (Bld) [#/Vol] 0.50 10*3/uL [facility] Monocytes/100 WBC (Bld) 4.5 % [facility] Neutrophils (Bld) [#/Vol] 9.14 10*3/uL [facility] Neutrophils/100 WBC (Bld) 82.3 % [facility] Nucleated RBC (Bld) [#/Vol] 0.00 10*3/uL [facility] Nucleated RBC/100 WBC (Bld) [Ratio] 0.0 % [facility] Platelet mean volume (Bld) [Entitic vol] 9.2 fL Low 9.4 - 12.4 fL [facility] Platelets (Bld) [#/Vol] 307 10*3/uL [facility] RBC (Bld) [#/Vol] 4.58 10*6/uL [facility] ealth WBC (Bld) [#/Vol] 11.09 10*3/uL [facility] CT HEAD OR BRAIN WITHOUT CON TRASTon [...] of the visualized skull or soft tissues. [facility] In Fu ji Speechq - 07/26/2020 2:32 [...] No acute intracranial abnormality. Workstation ID: [id number] [facility] No acute intracrania l abnormality. Workstation ID: [id number] [facility] ECG 12-LEADon 07-26-2020 Atrial Rate 95 BPM [facility] P [place] 77 degrees [facility] P-R Interval 128 ms [facility] Q-T Interval 334 ms [facility] QRS Duration 94 ms [facility] QTC Calculation (Bezet) 419 ms [facility] R [place] 68 degrees [facility] T [place] 73 degrees [facility] Ventricular Rate 95 BPM [facility] Normal sinus rhythm Normal ECG When compared with ECG of 25-JUL-2020 07:54, No significant change was found Confirmed by Physician, ED ([id number]), food expeditor BILL SANTACRUZ ([id number]) on 07/26/2020 2:28:29 PM [facility] Otheron 07-26-2020 Extra Tube Hold for add-ons. [facility] Comment on above: Auto resulted. TROPONINon 07-26-2020 Troponin T.cardiac [Mass/Vol] Normal [facility] Troponin T.cardiac [Mass/Vol] 11 ng/L <=22 [facility] BLOOD GAS, VBG WITH FULL WILLARD Jarod 07-25-2020 Base excess Calc (BldV) [Moles/Vol] 2.8 mmol/L High [facility] Calcium.ionized [Mass/Vol] 4.5 mg/dL 4.5 - 5.3 mg/dL [facility] Carboxyhemoglobin (BldA) [Mass fraction] 2.2 High <=1.5 % of total Hb [facility] Comment on above: Reference Ranges: [place] Non-smokers: <1.5% Smokers: 1.5-5.0% Heavy Smokers: 5.0-9.0% CO2 (BldV) [Partial pressure] 39.3 mm[Hg] Low [facility] Glucose [Mass/Vol] 190 mg/dL High 65 - 99 mg/dL [facility] HCO3 (Bld) [Moles/Vol] 26.5 mmol/L 24.0 - 28.0 mmol/L [facility] Hematocrit (BldA) [Volume fraction] 41.5 % 41.0 - 53.0 % [facility] Hemoglobin (Bld) [Mass/Vol] 13.5 g/dL 13.5 - 17.5 g/dL [facility] Interpretation and review of laboratory results Abnormal [facility] Lactate [Moles/Vol] 3.5 mmol/L High 0.6 - 2. 0 mmol/L [facility] Methemoglobin (BldA) [Mass fraction] 0.4 % 0.0 - 2.0 % [facility] Oxygen (BldV) [Partial pressure] 82 mm[Hg] High [facility] Oxygen saturation in Venous blood 96.5 % High 40.0 - 70.0 % [facility] Oxyhemoglobin (BldA) [Mass fraction] 94.0 % No established reference range [facility] pH (BldV) 7.44 [pH] High [facility] Potassium [Moles/Vol] 4.1 mmol/L 3.5 - 5.1 mmol/L [facility] Sodium [Moles/Vol] 139 mmol/L 135 - 145 mmol/L [facility] BMPon 07-25-2020 Anion gap [Moles/Vol] 16 mmol/L 10 - 2 0 mmol/L [facility] Calcium [Mass/Vol] 8.6 mg/dL 8.4 - 10. 2 mg/dL [facility] Chloride [Moles/Vol] 101 mmol/L 98 - 10 8 mmol/L [facility] Creatinine [Mass/Vol] 0.81 mg/dL 0.50 - 1.30 [facility] GFR/1.73 sq M predicted among non-blacks MDRD (S/P/Bld) [Vol rate/Area] The eGFR should be used for monitoring renal function only and not for medication dosing. [facility] GFR/1.73 sq M.predicted CKD-EPI (S/P/Bld) [Vol rate/Area] 97 >=60 mL/min/1.73 m2 [facility] Glucose [Mass/Vol] 230 mg/dL High 65 - 99 mg/dL [facility] HCO3 [Moles/Vol] 26 mmol/L 21 - 32 mmol/L [facility] Interpretation and review of laboratory results Abnormal [facility] Potassium [Moles/Vol] 4.3 mmol/L 3.5 - 5.1 mmol/L [facility] Sodium [Moles/Vol] 139 mmol/L 135 - 145 mmol/L [facility] Urea nitrogen [Mass/Vol] 16 mg/dL 8 - 25 mg/dL [facility] Urea nitrogen/Creatinine [Mass ratio] 19.8 mg/mg [facility] CBC WITH AUTO DIFFERENTIALon 07-25-2020 Basophils (Bld) [#/Vol] 0.02 10*3/uL [facility] Basophils/100 WBC (Bld) 0.2 % [facility] Eosinophils (Bld) [#/Vol] 0.04 10*3/uL [facility] Eosinophils/100 WBC (Bld) 0.4 % [facility] Erythrocyte distribution width (RBC) [Entitic vol] 13.6 % 11.6 - 14.8 % [facility] Hematocrit (Bld) [Volume fraction] 41.8 % 41.0 - 53.0 % [facility] Hemoglobin (Bld) [Mass/Vol] 13.2 g/dL Low 13.5 - 17.5 g/dL [facility] Immature granulocytes (Bld) [#/Vol] 0.13 10*3/uL [facility] Immature granulocytes/100 WBC (Bld) 1.40 % [facility] Comment on above: The IG parameter is the percentage of metamyelocytes, myelocytes and promyelocytes. An immature granulocyte count (IG) of 1% or more suggests the possibility of infection, an IG count of 3% is very likely related to an infection. Interpretation and review of laboratory results Abnormal [facility] Lymphocytes (Bld) [#/Vol] 0.68 10*3/uL Low [facility] Lymphocytes/100 WBC (Bld) 7.2 % [facility] MCH (RBC) [Entitic mass] 31.4 pg 26.0 - 34.0 pg [facility] MCHC (RBC) [Mass/Vol] 31.6 g/dL 31.0 - 37.0 g/dL [facility] MCV (RBC) [Entitic vol] 99.3 fL 80.0 - 100.0 fL [facility] Monocytes (Bld) [#/Vol] 0.44 10*3/uL [facility] Monocytes/100 WBC (Bld) 4.7 % [facility] Neutrophils (Bld) [#/Vol] 8.12 10*3/uL High [facility] Neutrophils/100 WBC (Bld) 86.1 % [facility] Nucleated RBC (Bld) [#/Vol] 0.00 10*3/uL [facility] Nucleated RBC/100 WBC (Bld) [Ratio] 0.0 % [facility] Platelet mean volume (Bld) [Entitic vol] 9.3 fL Low 9.4 - 12.4 fL [facility] Platelets (Bld) [#/Vol] 246 10*3/uL [facility] RBC (Bld) [#/Vol] 4.21 10*6/uL Low [facility] WBC (Bld) [#/Vol] 9.43 10*3/uL [facility]-19/Influenza A,B Molec [facility] 07-25-2020 Influenza A Not Detected Not Detected [facility] Influenza B Not Detected Not Detected [facility] Interpretation and review of laboratory results Normal [facility] SARS-CoV-2 Not Detected Not Detected [facility] This test was perfor med under [...] the following links: For Healthcare Providers: https://www.fda.gov/media /186322/download For Patients: https://www.fda.gov/media /529414/download [facility] CT PULMONARY ARTERIESon 07-09 Interface, Rad [...] have resolved. 3. Severe emphysema. Workstation ID: [id number] [facility] 1. No evidence of pulmonary embolism or acute pulmonary abnormality. 2. Decreased consolidation in the superior segment of the right lower lobe, compatible with resolving pneumonia. Right middle lobe opacities have resolved. 3. Severe emphysema. Workstation ID: [id number] [facility] EXAMINATION: CTA OF THE CHEST 07/25/2020 [...] No acute bone or soft tissue abnormality. [facility] DRUGS OF ABUSE SCREEN, URINE on 07-25-2020 Amphetamines Ql (U) None Detected None Detected [facility] Comment on above: Urine Amphetamine Cu toff: < 1000 ng/mL = None Detected Barbiturates Screen Ql (U) None Detected None Detected [facility] Comment on above: Urine Barbiturates C utoff: < 200 ng/mL = None Detected Benzodiazepines Ql (U) None Detected None Detected [facility] Comment on above: Urine Benzodiazepine Cutoff: < 200 ng/mL = None Detected Buprenorphine Ql (U) Positive Abnormal None Detected [facility] Comment on above: Urine Buprenorphine Cutoff: < 5 ng/mL = None Detected Cannabinoids Screen Ql (U) None Detected None Detected [facility] Comment on above: Urine Cannabinoids C utoff: < 50 ng/mL = None Detected Cocaine Ql (U) None Detected None Detected [facility] Comment on above: Urine Cocaine Cutoff : < 300 ng/mL = None Detected Fentanyl+Norfentanyl Screen Ql (U) None Detected None Detected [facility] Comment on above: Urine Fentanyl Cutof f: < 1 ng/mL = None Detected Interpretation and review of laboratory results Abnormal [facility] Methadone Screen Ql (U) None Detected None Detected [facility] Comment on above: Urine Methadone Cuto ff: < 300 ng/mL = None Detected Opiates Screen Ql (U) None Detected None Detect ed [facility] Comment on above: Urine Opiates Cutoff : < 300 ng/mL = None Detected Oxycodone Ql (U) None Detected None Detected [facility] Comment on above: Urine Oxycodone Cuto ff: < 100 ng/mL = None Detected Screen results shoul d be used for treatment purposes only. Specimen will be kept for 2 weeks, if the sample is adequate. Confirmation testing can be initiated by calling the lab within 2 weeks. [facility] ECG 12-LEADon 07-25-2020 Atrial Rate 114 BPM [facility] P [place] 80 degrees [facility] P-R Interval 132 ms [facility] Q-T Interval 322 ms [facility] QRS Duration 80 ms [facility] QTC Calculation (Bezet) 443 ms [facility] R [place] 73 degrees [facility] T [place] 86 degrees [facility] Ventricular Rate 114 BPM [facility] th Poor data qualit y, interpretation may be adversely affected Sinus tachycardia Otherwise normal ECG When compared with ECG of 17-JUL-2020 14:00, No significant change was found Confirmed by Physician, ED ([id number]), food expeditor BILL SANTACRUZ ([id number]) on 07/25/2020 8:05:49 AM [facility] NT Pro BNPon 07-25-2020 Interpretation and review of laboratory results Normal [facility] Natriuretic peptide.B prohormone N-Terminal [Mass/Vol] 82 pg/mL 0 - 300 pg/mL [facility] Pride Study Cut-offs Rule In: < /= 50 Years >450 pg/mL 51 Years - 75 Years >900 pg/mL 76 Years - 99 Years >1800 pg/mL Rule Out: All patients <300 pg/mL [facility] Otheron 07-25-2020 Extra Tube Hold for add-ons. [facility] Comment on above: Auto resulted. Reflex Lactic Acid, Plasmaon 07-25-2020 Interpretation and review of laboratory results Abnormal [facility] Lactate [Moles/Vol] 2.1 mmol/L High 0.6 - 2. 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 Conclusions * No evidence of deep or superficial vein thrombosis in either lower extremity. . 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 Conclusions * No evidence of deep or superficial vein thrombosis in either lower extremity. . Report Signatures Finalized by ANTONIO Collazo MD on 07/25/2020 02:51 PM [facility] XR Chest 1 Viewon 07-25-2020 Mild right basilar atelectasis. Otherwise no acute focal process. Workstation ID: [id number] [facility] EXAMINATION: ONE XRA Y VIEW OF [...] Cardiomediastinal silhouette and bony thorax are unchanged. [facility], [facility] In [facility] [place] - 07/25/2020 9:32 AM EST EXAMINATION: ONE [...] Otherwise no acute focal process. Workstation ID: [id number] [facility] XR Hip Right With Pelvis 2-3 [...] Left hip demonstrates no significant degenerative changes. [facility], Rad In [facility] [place] - 07/25/2020 9:33 AM EST EXAMINATION: ONE [...] acute fracture or dislocation. Workstation ID: [id number] [facility] Moderate to severe r ight hip osteoarthritis. No acute fracture or dislocation. Workstation ID: [id number] [facility] ECG 12-LEADon 07-19-2020 Atrial Rate 110 BPM [facility] P [place] 82 degrees [facility] P-R Interval 138 ms [facility] Q-T Interval 320 ms [facility] QRS Duration 86 ms [facility] QTC Calculation (Bezet) 433 ms [facility] R [place] 77 degrees [facility] T [place] 87 degrees [facility] Ventricular Rate 110 BPM [facility] Sinus tachycardia Possible Left atrial enlargement Borderline ECG When compared with ECG of 05-JUL-2020 14:05, No significant change was found Confirmed by Physician, ED ([id number]), food expeditor LAUREN AVILA ([id number]) on 07/19/2020 8:21:16 AM [facility] EKGon 07-18-2020 Ordered by an unspec ified provider. [facility] BLOOD GAS, VBG WITH FULL WILLARD Jarod 07-17-2020 Base excess Calc (BldV) [Moles/Vol] 2.8 mmol/L High [facility] Calcium.ionized [Mass/Vol] 4.7 mg/dL 4.5 - 5.3 mg/dL [facility] Carboxyhemoglobin (BldA) [Mass fraction] 3.0 High <=1.5 % of total Hb [facility] Comment on above: Reference Ranges: Suburban Non-smokers: <1.5% Smokers: 1.5-5.0% Heavy Smokers: 5.0-9.0% CO2 (BldV) [Partial pressure] 63.3 mm[Hg] High [facility] Glucose [Mass/Vol] 117 mg/dL High 65 - 99 mg/dL [facility] HCO3 (Bld) [Moles/Vol] 30.8 mmol/L High 24.0 - 28.0 mmol/L [facility] Hematocrit (BldA) [Volume fraction] 48.3 % 41.0 - 53.0 % [facility] Hemoglobin (Bld) [Mass/Vol] 15.8 g/dL 13.5 - 17.5 g/dL [facility] Inhaled oxygen concentration 21 %/L [facility] Interpretation and review of laboratory results Abnormal [facility] Lactate [Moles/Vol] 3.0 mmol/L High 0.6 - 2. 0 mmol/L [facility] Methemoglobin (BldA) [Mass fraction] 0.3 % 0.0 - 2.0 % [facility] Oxygen (BldV) [Partial pressure] 50 mm[Hg] High [facility] Oxygen saturation in Venous blood 82.1 % High 40.0 - 70.0 % [facility] Oxyhemoglobin (BldA) [Mass fraction] 79.4 % No established reference range [facility] pH (BldV) 7.31 [pH] Low [facility] Potassium [Moles/Vol] 3.7 mmol/L 3.5 - 5.1 mmol/L [facility] Sodium [Moles/Vol] 141 mmol/L 135 - 145 mmol/L [facility] Type of Oxygen saturation device Bipap [facility] Other 23/01 [facility] BMPon 07-17-2020 Anion gap [Moles/Vol] 14 mmol/L 10 - 2 0 mmol/L [facility] Calcium [Mass/Vol] 9.3 mg/dL 8.4 - 10. 2 mg/dL [facility] Chloride [Moles/Vol] 98 mmol/L 98 - 10 8 mmol/L [facility] Creatinine [Mass/Vol] 0.72 mg/dL 0.50 - 1.30 [facility] GFR/1.73 sq M predicted among non-blacks MDRD (S/P/Bld) [Vol rate/Area] The eGFR should be used for monitoring renal function only and not for medication dosing. [facility] GFR/1.73 sq M.predicted CKD-EPI (S/P/Bld) [Vol rate/Area] 101 >=60 mL/min/1.73 m2 [facility] Glucose [Mass/Vol] 121 mg/dL High 65 - 99 mg/dL [facility] HCO3 [Moles/Vol] 31 mmol/L 21 - 32 mmol/L [facility] Interpretation and review of laboratory results Abnormal [facility] Potassium [Moles/Vol] 3.8 mmol/L 3.5 - 5.1 mmol/L [facility] Sodium [Moles/Vol] 139 mmol/L 135 - 145 mmol/L [facility] Urea nitrogen [Mass/Vol] 11 mg/dL 8 - 25 mg/dL [facility] Urea nitrogen/Creatinine [Mass ratio] 15.3 mg/mg [facility] Blood Gas, Venouson 07-17-19 Base excess Calc (BldV) [Moles/Vol] 5.9 mmol/L High [facility] CO2 (BldV) [Partial pressure] 57.3 mm[Hg] High [facility] HCO3 (Bld) [Moles/Vol] 32.5 mmol/L High 24.0 - 28.0 mmol/L [facility] Hematocrit (BldA) [Volume fraction] 43.9 % 41.0 - 53.0 % [facility] Hemoglobin (Bld) [Mass/Vol] 14.3 g/dL 13.5 - 17.5 g/dL [facility] Inhaled oxygen concentration 21 %/L [facility] Interpretation and review of laboratory results Abnormal [facility] Oxygen (BldV) [Partial pressure] 38 mm[Hg] [facility] Oxygen saturation in Venous blood 69.8 % 40.0 - 70.0 % [facility] pH (BldV) 7.37 [pH] [facility] Type of Oxygen saturation device Bipap [facility] Other 23/01 [facility] CBC WITH AUTO DIFFERENTIALon 07-17-2020 Basophils (Bld) [#/Vol] 0.06 10*3/uL [facility] Basophils/100 WBC (Bld) 0.5 % [facility] Eosinophils (Bld) [#/Vol] 0.44 10*3/uL [facility] Eosinophils/100 WBC (Bld) 3.6 % [facility] Erythrocyte distribution width (RBC) [Entitic vol] 12.9 % 11.6 - 14.8 % [facility] Hematocrit (Bld) [Volume fraction] 47.6 % 41.0 - 53.0 % [facility] Hemoglobin (Bld) [Mass/Vol] 15.4 g/dL 13.5 - 17.5 g/dL [facility] Immature granulocytes (Bld) [#/Vol] 0.04 10*3/uL [facility] Immature granulocytes/100 WBC (Bld) 0.30 % [facility] Comment on above: The IG parameter is the percentage of metamyelocytes, myelocytes and promyelocytes. An immature granulocyte count (IG) of 1% or more suggests the possibility of infection, an IG count of 3% is very likely related to an infection. Interpretation and review of laboratory results Abnormal [facility] Lymphocytes (Bld) [#/Vol] 2.09 10*3/uL [facility] Lymphocytes/100 WBC (Bld) 17.0 % [facility] MCH (RBC) [Entitic mass] 31.4 pg 26.0 - 34.0 pg [facility] MCHC (RBC) [Mass/Vol] 32.4 g/dL 31.0 - 37.0 g/dL [facility] MCV (RBC) [Entitic vol] 97.1 fL 80.0 - 100.0 fL [facility] Monocytes (Bld) [#/Vol] 0.97 10*3/uL High [facility] Monocytes/100 WBC (Bld) 7.9 % [facility] Neutrophils (Bld) [#/Vol] 8.71 10*3/uL High [facility] Neutrophils/100 WBC (Bld) 70.7 % [facility] Nucleated RBC (Bld) [#/Vol] 0.00 10*3/uL [facility] Nucleated RBC/100 WBC (Bld) [Ratio] 0.0 % [facility] Platelet mean volume (Bld) [Entitic vol] 9.9 fL 9.4 - 12.4 fL [facility] Platelets (Bld) [#/Vol] 291 10*3/uL [facility] RBC (Bld) [#/Vol] 4.90 10*6/uL [facility] ealth WBC (Bld) [#/Vol] 12.31 10*3/uL [facility] COVID-19/Influenza A,B Molec ularon 07-17-2020 Influenza A Not Detected Not Detected [facility] Influenza B Not Detected Not Detected [facility] Interpretation and review of laboratory results Normal [facility] SARS-CoV-2 Not Detected Not Detected [facility] This test was perfor med under [...] the following links: For Healthcare Providers: https://www.fda.gov/media /743042/download For Patients: https://www.fda.gov/media /319748/download [facility] Otheron 07-17-2020 Extra Tube Hold for add-ons. [facility] Comment on above: Auto resulted. Reflex Lactic Acid, Plasmaon 07-17-2020 Interpretation and review of laboratory results Abnormal [facility] Lactate [Moles/Vol] 2.6 mmol/L High 0.6 - 2. 0 mmol/L [facility] TROPONINon 07-17-2020 Troponin T.cardiac [Mass/Vol] No biomarker evidence of cardiac injury. [facility] Troponin T.cardiac [Mass/Vol] 11 ng/L <=22 [facility] Troponin T.cardiac [Mass/Vol] 0 ng/L < = -/+ 7 change [facility] Troponin T.cardiac [Mass/Vol] 11 ng/L <=22 [facility] Troponin T.cardiac [Mass/Vol] Normal [facility] XR Chest 1 Viewon 07-17-2020 EXAMINATION: [...] normal. I see no evidence of CHF. [facility] Interface, Rad In Fu ji Speechq [...] lower lung infiltrate. No new abnormality identified. [employer] Workstation ID: [id number] [facility] Near complete resolu tion of the right lower lung infiltrate. No new abnormality identified. [employer] Workstation ID: [id number] [facility] Otheron 07-10-2020 EXAMINATION: TWO XRA Y [...] subluxation of the right knee is identified. [facility] Interface, Rad In Fu ji Speechq [...] No fracture identified involving the right knee. [employer] Workstation ID: Hooked Severe osteoarthriti s of the right hip joint with loss of the joint space, subchondral cyst formation, bony sclerosis and osteophyte formation. No fracture of the right femoral neck or intratrochanteric region. The rest of the right femur appears unremarkable. Soft tissue swelling anterior to the patella. No fracture identified involving the right knee. [employer] Workstation ID: Hooked XR Lumbar Spine 2-3 Views (S tandard)on [...] arthropathy is seen from L3 through S1. [facility], Rad In Fu ji Speechq - [...] as described above. No acute fractures identified. [employer] Workstation ID: [id number] Changes of DJD and D DD as described above. No acute fractures identified. [employer] [id number], [facility]BG WITH FULL WILLARD Jarod 07-05-2020 Base excess Calc (BldV) [Moles/Vol] 3.2 mmol/L High [facility] Calcium.ionized [Mass/Vol] 4.7 mg/dL 4.5 - 5.3 mg/dL [facility] Carboxyhemoglobin (BldA) [Mass fraction] 2.3 High <=1.5 % of total Hb [facility] Comment on above: Reference Ranges: [place]urb Non-smokers: <1.5% Smokers: 1.5-5.0% Heavy Smokers: 5.0-9.0% CO2 (BldV) [Partial pressure] 61.5 mm[Hg] High [facility] Glucose [Mass/Vol] 91 mg/dL 65 - 99 mg/dL [facility] HCO3 (Bld) [Moles/Vol] 30.8 mmol/L High 24.0 - 28.0 mmol/L [facility] Hematocrit (BldA) [Volume fraction] 47.3 % 41.0 - 53.0 % [facility] Hemoglobin (Bld) [Mass/Vol] 15.4 g/dL 13.5 - 17.5 g/dL [facility] Inhaled oxygen concentration 21 %/L [facility] Interpretation and review of laboratory results Abnormal [facility] Lactate [Moles/Vol] 1.3 mmol/L 0.6 - 2. 0 mmol/L [facility] Methemoglobin (BldA) [Mass fraction] 0.5 % 0.0 - 2.0 % [facility] Oxygen (BldV) [Partial pressure] 24 mm[Hg] Low [facility] Oxygen saturation in Venous blood 36.8 % Low 40.0 - 70.0 % [facility] Oxyhemoglobin (BldA) [Mass fraction] 35.8 % No established reference range [facility] pH (BldV) 7.32 [pH] [facility] Potassium [Moles/Vol] 3.7 mmol/L 3.5 - 5.1 mmol/L [facility] Sodium [Moles/Vol] 137 mmol/L 135 - 145 mmol/L [facility] Type of Oxygen saturation device [facility] 07-05-2020 Anion gap [Moles/Vol] 15 mmol/L 10 - 2 0 mmol/L [facility] Calcium [Mass/Vol] 9.4 mg/dL 8.4 - 10. 2 mg/dL [facility] Chloride [Moles/Vol] 98 mmol/L 98 - 10 8 mmol/L [facility] Creatinine [Mass/Vol] 0.86 mg/dL 0.50 - 1.30 [facility] GFR/1.73 sq M predicted among non-blacks MDRD (S/P/Bld) [Vol rate/Area] The eGFR should be used for monitoring renal function only and not for medication dosing. [facility] GFR/1.73 sq M.predicted CKD-EPI (S/P/Bld) [Vol rate/Area] 94 >=60 mL/min/1.73 m2 [facility] Glucose [Mass/Vol] 93 mg/dL 65 - 99 mg/dL [facility] HCO3 [Moles/Vol] 29 mmol/L 21 - 32 mmol/L [facility] Interpretation and review of laboratory results Normal [facility] Potassium [Moles/Vol] 4.0 mmol/L 3.5 - 5.1 mmol/L [facility] Sodium [Moles/Vol] 138 mmol/L 135 - 145 mmol/L [facility] Urea nitrogen [Mass/Vol] 17 mg/dL 8 - 25 mg/dL [facility] Urea nitrogen/Creatinine [Mass ratio] 19.8 mg/mg [facility] CBC WITH AUTO DIFFERENTIALon 07-05-2020 Basophils (Bld) [#/Vol] 0.10 10*3/uL [facility] Basophils/100 WBC (Bld) 0.6 % [facility] Eosinophils (Bld) [#/Vol] 0.58 10*3/uL High [facility] Eosinophils/100 WBC (Bld) 3.2 % [facility] Erythrocyte distribution width (RBC) [Entitic vol] 13.1 % 11.6 - 14.8 % [facility] Hematocrit (Bld) [Volume fraction] 47.1 % 41.0 - 53.0 % [facility] Hemoglobin (Bld) [Mass/Vol] 15.1 g/dL 13.5 - 17.5 g/dL [facility] Immature granulocytes (Bld) [#/Vol] 0.08 10*3/uL [facility] Immature granulocytes/100 WBC (Bld) 0.40 % [facility] Comment on above: The IG parameter is the percentage of metamyelocytes, myelocytes and promyelocytes. An immature granulocyte count (IG) of 1% or more suggests the possibility of infection, an IG count of 3% is very likely related to an infection. Interpretation and review of laboratory results Abnormal [facility] Lymphocytes (Bld) [#/Vol] 1.47 10*3/uL [facility] Lymphocytes/100 WBC (Bld) 8.1 % [facility] MCH (RBC) [Entitic mass] 31.5 pg 26.0 - 34.0 pg [facility] MCHC (RBC) [Mass/Vol] 32.1 g/dL 31.0 - 37.0 g/dL [facility] MCV (RBC) [Entitic vol] 98.1 fL 80.0 - 100.0 fL [facility] Monocytes (Bld) [#/Vol] 1.39 10*3/uL [facility] Monocytes/100 WBC (Bld) 7.7 % [facility] Neutrophils (Bld) [#/Vol] 14.54 10*3/uL [facility] Neutrophils/100 WBC (Bld) 80.0 % [facility] Nucleated RBC (Bld) [#/Vol] 0.00 10*3/uL [facility] Nucleated RBC/100 WBC (Bld) [Ratio] 0.0 % [facility] Platelet mean volume (Bld) [Entitic vol] 9.6 fL 9.4 - 12.4 fL [facility] Platelets (Bld) [#/Vol] 303 10*3/uL [facility] RBC (Bld) [#/Vol] 4.80 10*6/uL [facility] ealth WBC (Bld) [#/Vol] 18.16 10*3/uL [facility] CT CHEST WITHOUT CONTRASTon 07-05-2020 1. Bibasilar atelect asis with decreased right middle and right lower lobe consolidative opacities consistent with improving pneumonia since 04/13/2020. 2. Severe emphysema. 3. No central obstructing airway lesion. Workstation ID: [id number] [facility] Interface, Rad In Fu ji Speechq [...] central obstructing airway lesion. Workstation ID: [id number] [facility] EXAMINATION: CT OF T HE CHEST [...] No acute osseous or soft tissue abnormality. [facility] ECG 12-LEADon 07-05-2020 Atrial Rate 116 BPM [facility] P [place] 85 degrees [facility] P-R Interval 142 ms [facility] Q-T Interval 314 ms [facility] QRS Duration 88 ms [facility] QTC Calculation (Bezet) 436 ms [facility] R [place] 72 degrees [facility] T [place] 85 degrees [facility] Ventricular Rate 116 BPM [facility] Sinus tachycardia Otherwise normal ECG When compared with ECG of 28-MAY-2020 11:57, No significant change was found Confirmed by Physician, ED ([id number]), food expeditor CARMEN FLEMING ([id number]) on 07/05/2020 2:50:18 PM [facility] EKGon 07-05-2020 Ordered by an unspec ified provider. [facility] Otheron 07-05-2020 Extra Tube Hold for add-ons. [facility] Comment on above: Auto resulted. XR Chest [...] is clear. The cardiac silhouette is normal. [facility] Interface, Rad In Fu ji Speechq [...] pneumonia, or neoplasm. RM/lab Workstation ID: [id number] [facility] Enlarged nodular den sity in the right lower lobe. Differential includes scarring, recurrent pneumonia, or neoplasm. RM/lab Workstation ID: [id number] [facility] Hematologyon 06-19-2020 INR Coag (PPP) [Relative time] 0.9 {INR} [facility] PT Coag (PPP) [Time] 11.9 s [facility] Hematocrit (Bld) [Volume fraction] 47.3 % 41 - 53 % [facility] Hemoglobin (Bld) [Mass/Vol] 15.0 g/dL 13.5 - 17.5 g/dL [facility] MCH (RBC) [Entitic mass] 31.6 pg 26 - 34 pg [facility] MCV (RBC) [Entitic vol] 99.8 fL 80 - 100 fL [facility] Nucleated RBC (Bld) [#/Vol] 0.00 10*3/uL [facility] Platelets (Bld) [#/Vol] 275 10*3/uL [facility] RBC (Bld) [#/Vol] 4.74 10*6/uL [facility] WBC (Bld) [#/Vol] 9.57 10*3/uL [facility] Metabolic Panelon 06-19-2020 Anion gap [Moles/Vol] 11 mmol/L 10 - 2 0 mmol/L [facility] Calcium [Mass/Vol] 9.2 mg/dL 8.4 - 10. 2 mg/dL [facility] Chloride [Moles/Vol] 100 mmol/L 98 - 10 8 mmol/L [facility] Creatinine [Mass/Vol] 0.71 mg/dL 0.50 - 1.30 [facility] GFR/1.73 sq M predicted among non-blacks MDRD (S/P/Bld) [Vol rate/Area] The eGFR should be used for monitoring renal function only and not for medication dosing. [facility] Glucose [Mass/Vol] 94 mg/dL 65 - 99 mg/dL [facility] Potassium [Moles/Vol] 4.0 mmol/L 3.5 - 5.1 mmol/L [facility] Sodium [Moles/Vol] 138 mmol/L 135 - 145 mmol/L [facility] Urea nitrogen [Mass/Vol] 11 mg/dL 8 - 25 mg/dL [facility] Urea nitrogen/Creatinine [Mass ratio] 15.5 mg/mg [facility] Otheron 06-19-2020 GFR/1.73 sq M.predicted CKD-EPI (S/P/Bld) [Vol rate/Area] 102 >=60 mL/min/1.73 m2 [facility] HCO3 [Moles/Vol] 31 mmol/L 21 - 32 mmol/L [facility] Interpretation and review of laboratory results Normal [facility] Interpretation and review of laboratory results Normal [facility] During the induction phase of oral anticoagulation, the INR may not reflect the anticoagulation status of the patient. Therapeutic ranges for INR's are: Most clinical situations: INR 2.0-3.0 Mechanical Prosthetic Valve: INR 2.5-3.5 Critical: INR >5.0 [facility] Erythrocyte distribution width (RBC) [Entitic vol] 13.8 % 11.6 - 14.8 % [facility] MCHC (RBC) [Mass/Vol] 31.7 g/dL 31 - 37 g/dL [facility] Nucleated RBC/100 WBC (Bld) [Ratio] 0.0 % [facility] Platelet mean volume (Bld) [Entitic vol] 9.5 fL 9.4 - 12.4 fL [facility] BLOOD GAS, VBG WITH FULL WILLARD [place] 05-28-2020 Base excess Calc (BldV) [Moles/Vol] 2.2 mmol/L High [facility] Calcium.ionized [Mass/Vol] 4.8 mg/dL 4.5 - 5.3 mg/dL [facility] Carboxyhemoglobin (BldA) [Mass fraction] 2.9 High <=1.5 % of total Hb [facility] Comment on above: Reference Ranges: [place] Non-smokers: <1.5% Smokers: 1.5-5.0% Heavy Smokers: 5.0-9.0% CO2 (BldV) [Partial pressure] 61.0 mm[Hg] High [facility] Glucose [Mass/Vol] 136 mg/dL High 65 - 99 mg/dL [facility] HCO3 (Bld) [Moles/Vol] 30.0 mmol/L High 24 - 28 mmol/L [facility] Hematocrit (BldA) [Volume fraction] 49.3 % 41 - 53 % [facility] Hemoglobin (Bld) [Mass/Vol] 16.1 g/dL 13.5 - 18 g/dL [facility] Lactate [Moles/Vol] 1.2 mmol/L 0.6 - 2 mmol/L [facility] Methemoglobin (BldA) [Mass fraction] 0.7 % 0 - 2 % [facility] Oxygen (BldV) [Partial pressure] 29 mm[Hg] [facility] Oxygen saturation in Venous blood 47.6 % 40 - 70 % [facility] Oxyhemoglobin (BldA) [Mass fraction] 45.9 % No established reference range [facility] pH (BldV) 7.31 [pH] Low [facility] Potassium [Moles/Vol] 3.9 mmol/L 3.5 - 5.1 mmol/L [facility] Sodium [Moles/Vol] 141 mmol/L 135 - 145 mmol/L [facility] Type of Oxygen saturation device Unknown [facility] BMPon 05-28-2020 Anion gap [Moles/Vol] 15 mmol/L 10 - 2 0 mmol/L [facility] Calcium [Mass/Vol] 9.4 mg/dL 8.4 - 10. 2 mg/dL [facility] Chloride [Moles/Vol] 100 mmol/L 98 - 10 8 mmol/L [facility] Creatinine [Mass/Vol] 0.74 mg/dL 0.50 - 1.30 [facility] GFR/1.73 sq M predicted among non-blacks MDRD (S/P/Bld) [Vol rate/Area] The eGFR should be used for monitoring renal function only and not for medication dosing. [facility] GFR/1.73 sq M.predicted CKD-EPI (S/P/Bld) [Vol rate/Area] 100 >=60 mL/min/1.73 m2 [facility] Glucose [Mass/Vol] 134 mg/dL High 65 - 99 mg/dL [facility] HCO3 [Moles/Vol] 26 mmol/L 21 - 32 mmol/L [facility] Potassium [Moles/Vol] 4.2 mmol/L 3.5 - 5.1 mmol/L [facility] Comment on above: Specimen slightly he molyzed Sodium [Moles/Vol] 137 mmol/L 135 - 145 mmol/L [facility] Urea nitrogen [Mass/Vol] 12 mg/dL 8 - 25 mg/dL [facility] Urea nitrogen/Creatinine [Mass ratio] 16.2 mg/mg [facility] CBC WITH AUTO DIFFERENTIALon 05-28-2020 Basophils (Bld) [#/Vol] 0.11 10*3/uL [facility] Basophils/100 WBC (Bld) 1.4 % [facility] Eosinophils (Bld) [#/Vol] 1.13 10*3/uL High [facility] Eosinophils/100 WBC (Bld) 14.6 % [facility] Erythrocyte distribution width (RBC) [Entitic vol] 13.7 % 11.6 - 14.8 % [facility] Hematocrit (Bld) [Volume fraction] 48.2 % 41 - 53 % [facility] Hemoglobin (Bld) [Mass/Vol] 15.3 g/dL 13.5 - 17.5 g/dL [facility] Immature granulocytes (Bld) [#/Vol] 0.01 10*3/uL [facility] Immature granulocytes/100 WBC (Bld) 0.10 % [facility] Comment on above: The IG parameter is the percentage of metamyelocytes, myelocytes and promyelocytes. An immature granulocyte count (IG) of 1% or more suggests the possibility of infection, an IG count of 3% is very likely related to an infection. Lymphocytes (Bld) [#/Vol] 2.08 10*3/uL [facility] Lymphocytes/100 WBC (Bld) 26.8 % [facility] MCH (RBC) [Entitic mass] 30.8 pg 26 - 34 pg [facility] MCHC (RBC) [Mass/Vol] 31.7 g/dL 31 - 37 g/dL [facility] MCV (RBC) [Entitic vol] 97.0 fL 80 - 100 fL [facility] Monocytes (Bld) [#/Vol] 0.68 10*3/uL [facility] Monocytes/100 WBC (Bld) 8.8 % [facility] Neutrophils (Bld) [#/Vol] 3.75 10*3/uL [facility] Neutrophils/100 WBC (Bld) 48.3 % [facility] Nucleated RBC (Bld) [#/Vol] 0.00 10*3/uL [facility] Nucleated RBC/100 WBC (Bld) [Ratio] 0.0 % [facility] Platelet mean volume (Bld) [Entitic vol] 9.0 fL Low 9.4 - 12.4 fL [facility] Platelets (Bld) [#/Vol] 281 10*3/uL [facility] RBC (Bld) [#/Vol] 4.97 10*6/uL [facility] WBC (Bld) [#/Vol] 7.76 10*3/uL [facility] Hepatic Function Panel (LFT) on 05-28-2020 Albumin [Mass/Vol] 3.9 g/dL 3.2 - 5.2 g/dL [facility] ALP [Catalytic activity/Vol] 88 U/L 40 - 150 U/L [facility] ALT [Catalytic activity/Vol] 13 U/L 0 - 40 U/L [facility] AST [Catalytic activity/Vol] 24 U/L 0 - 45 U/L [facility] Bilirubin [Mass/Vol] 0.4 mg/dL 0 - 1.3 mg/dL [facility] Bil[facility].conjugated [Mass/Vol] mg/dL 0 - 0.4 mg/dL [facility] Protein [Mass/Vol] 7.4 g/dL 6 - 8 g/dL [facility] Lactic Acid, Plasmaon 2019 Interpretation and review of laboratory results Normal [facility] Lactate [Moles/Vol] 1.2 mmol/L 0.6 - 2 mmol/L [facility] NT Pro BNPon 05-28-2020 Natriuretic peptide.B prohormone N-Terminal [Mass/Vol] <50 0 - 300 pg/mL [facility] Pride Study Cut-offs Rule In: < /= 50 Years >450 pg/mL 51 Years - 75 Years >900 pg/mL 76 Years - 99 Years >1800 pg/mL Rule Out: All patients <300 pg/mL [facility] Otheron 05-28-2020 Extra Tube Hold for add-ons. [facility] Comment on above: Auto resulted. Interpretation and review of laboratory results Normal [facility] Interpretation and review of laboratory results Abnormal [facility] TSH with Reflex Free T4on TSH Qn 1.16 m[IU]/L [facility] XR Chest 1 Viewon 05-28-2020 EXAMINATION: [...] effusion or pneumothorax. No gross bony abnormality. [facility] Improved bilateral airspace opacities. Workstation ID: [id number] [facility] Interface, Rad In Juliocesar souza Speechq [...] Improved bilateral airspace opacities. Workstation ID: [id number] [facility] Comprehensive Metabolic Pane samuel 04-18-2020 Albumin [Mass/Vol] 3.3 g/dL 3.2 - 5.2 g/dL [facility] ALP [Catalytic activity/Vol] 93 U/L 40 - 150 U/L [facility] ALT [Catalytic activity/Vol] 34 U/L 0 - 40 U/L [facility] Anion gap [Moles/Vol] 15 mmol/L 10 - 2 0 mmol/L [facility] AST [Catalytic activity/Vol] 22 U/L 0 - 45 U/L [facility] Bilirubin [Mass/Vol] 0.2 mg/dL 0 - 1.3 mg/dL [facility] Calcium [Mass/Vol] 9.2 mg/dL 8.4 - 10. 2 mg/dL [facility] Chloride [Moles/Vol] 99 mmol/L 98 - 10 8 mmol/L [facility] Creatinine [Mass/Vol] 0.62 mg/dL 0.50 - 1.30 [facility] GFR/1.73 sq M predicted among non-blacks MDRD (S/P/Bld) [Vol rate/Area] The eGFR should be used for monitoring renal function only and not for medication dosing. [facility] GFR/1.73 sq M.predicted CKD-EPI (S/P/Bld) [Vol rate/Area] 109 >=60 mL/min/1.73 m2 [facility] Glucose [Mass/Vol] 134 mg/dL High 65 - 99 mg/dL [facility] HCO3 [Moles/Vol] 29 mmol/L 21 - 32 mmol/L [facility] Interpretation and review of laboratory results Abnormal [facility] Potassium [Moles/Vol] 3.6 mmol/L 3.5 - 5.1 mmol/L [facility] Protein [Mass/Vol] 6.9 g/dL 6 - 8 g/dL [facility] Sodium [Moles/Vol] 139 mmol/L 135 - 145 mmol/L [facility] Urea nitrogen [Mass/Vol] 12 mg/dL 8 - 25 mg/dL [facility] Urea nitrogen/Creatinine [Mass ratio] 19.4 mg/mg [facility] Imm/Pathon 04-18-2020 Bacteria identified Cx Nom (Bld) [facility] Erythrocyte distribution width (RBC) [Entitic vol] 13.4 % 11.6 - 14.8 % [facility] Hematocrit (Bld) [Volume fraction] 37.1 % Low 41 - 53 % [facility] Hemoglobin (Bld) [Mass/Vol] 11.8 g/dL Low 13.5 - 17.5 g/dL [facility] Interpretation and review of laboratory results Abnormal [facility] MCH (RBC) [Entitic mass] 31.6 pg 26 - 34 pg [facility] MCHC (RBC) [Mass/Vol] 31.8 g/dL 31 - 37 g/dL [facility] MCV (RBC) [Entitic vol] 99.5 fL 80 - 100 fL [facility] Nucleated RBC (Bld) [#/Vol] 0.00 10*3/uL [facility] Nucleated RBC/100 WBC (Bld) [Ratio] 0.0 % [facility] Platelet mean volume (Bld) [Entitic vol] 9.0 fL Low 9.4 - 12.4 fL [facility] Platelets (Bld) [#/Vol] 289 10*3/uL [facility] RBC (Bld) [#/Vol] 3.73 10*6/uL Low [facility] WBC (Bld) [#/Vol] 12.36 10*3/uL High [facility] CBCon 04-16-2020 Erythrocyte distribution width (RBC) [Entitic vol] 13.1 % 11.6 - 14.8 % [facility] Hematocrit (Bld) [Volume fraction] 35.1 % Low 41 - 53 % [facility] Hemoglobin (Bld) [Mass/Vol] 11.1 g/dL Low 13.5 - 17.5 g/dL [facility] Interpretation and review of laboratory results Abnormal [facility] MCH (RBC) [Entitic mass] 31.3 pg 26 - 34 pg [facility] MCHC (RBC) [Mass/Vol] 31.6 g/dL 31 - 37 g/dL [facility] MCV (RBC) [Entitic vol] 98.9 fL 80 - 100 fL [facility] Nucleated RBC (Bld) [#/Vol] 0.00 10*3/uL [facility] Nucleated RBC/100 WBC (Bld) [Ratio] 0.0 % [facility] Platelet mean volume (Bld) [Entitic vol] 9.4 fL 9.4 - 12.4 fL [facility] Platelets (Bld) [#/Vol] 280 10*3/uL [facility] RBC (Bld) [#/Vol] 3.55 10*6/uL Low [facility] WBC (Bld) [#/Vol] 16.93 10*3/uL High [facility] ECG 12-LEADon 04-16-2020 Atrial Rate 75 BPM [facility] P [place] 67 degrees [facility] P-R Interval 144 ms [facility] Q-T Interval 376 ms [facility] QRS Duration 104 ms [facility] QTC Calculation (Bezet) 419 ms [facility] R [place] 65 degrees [facility] T [place] 63 degrees [facility] Ventricular Rate 75 BPM [facility] Normal sinus rhythm Normal ECG Confirmed by Flores Duong ([id number]) on 04/16/2020 10:47:28 AM [facility] Atrial Rate 112 BPM [facility] P [place] 70 degrees [facility] P-R Interval 130 ms [facility] Q-T Interval 318 ms [facility] QRS Duration 82 ms [facility] QTC Calculation (Bezet) 434 ms [facility] R [place] 39 degrees [facility] T [place] 68 degrees [facility] Ventricular Rate 112 BPM [facility] th Sinus tachycardia Otherwise normal ECG When compared with ECG of 13-APR-2020 16:42, (unconfirmed) No significant change was found Confirmed by Physician, ED ([id number]), food expeditor CARMEN FLEMING ([id number]) on 04/16/2020 10:32:32 AM [facility] Atrial Rate 114 BPM [facility] Atrial Rate 113 BPM [facility] P-R Interval 136 ms [facility] P-R Interval 134 ms [facility] Q-T Interval 292 ms [facility] Q-T Interval 308 ms [facility] QRS Duration 90 ms [facility] QRS Duration 86 ms [facility] QTC Calculation (Bezet) 424 ms [facility] QTC Calculation (Bezet) 400 ms [facility] R [place] 57 degrees [facility] R [place] 63 degrees [facility] Ventricular Rate 114 BPM [facility] th Ventricular Rate 113 BPM [facility] Sinus tachycardia Otherwise normal ECG When compared with ECG of 13-APR-2020 16:28, (unconfirmed) No significant change was found Confirmed by Physician, ED ([id number]), food expeditor CARMEN FLEMING ([id number]) on 04/16/2020 10:32:31 AM [facility] Sinus tachycardia Otherwise normal ECG When compared with ECG of 11-APR-2020 20:05, No significant change was found Confirmed by Physician, ED ([id number]), food expeditor CARMEN FLEMING ([id number]) on 04/16/2020 10:32:31 AM [facility] Otheron 04-16-2020 P [place] 76 degrees [facility] T [place] 74 degrees [facility] XR Chest 1 Viewon 04-16-2020 Persistent multi lob ar pneumonia, not significantly changed. Continued follow-up is recommended to ensure resolution. Workstation ID: [id number] [facility] EXAMINATION: ONE XRA Y VIEW OF [...] organism, unspecified whether acute organ dysfunction present ([facility]) J96.01 Acute respiratory failure with hypoxia ([facility]) J44.1 COPD exacerbation ([facility]) R07.89 Chest pain, atypical R11.2 Nausea and vomiting, intractability of vomiting not specified, unspecified vomiting type FINDINGS: The mediastinal and cardiac contours are stable. There is persistent multifocal airspace consolidation within the lower lobes, right greater than left. There is no pleural effusion or pneumothorax identified. Emphysematous changes are present within the upper lobes. [facility], Rad In Fu ji Speechq - [...] organism, unspecified whether acute organ dysfunction present ([facility]) J96.01 Acute respiratory failure with hypoxia ([facility]) J44.1 COPD exacerbation ([facility]) R07.89 Chest pain, atypical R11.2 Nausea and [...] recommended to ensure resolution. Workstation ID: [id number] [facility] CBCon 04-15-2020 Erythrocyte distribution width (RBC) [Entitic vol] 13.0 % 11.6 - 14.8 % [facility] Hematocrit (Bld) [Volume fraction] 35.4 % Low 41 - 53 % [facility] Hemoglobin (Bld) [Mass/Vol] 11.5 g/dL Low 13.5 - 17.5 g/dL [facility] Interpretation and review of laboratory results Abnormal [facility] MCH (RBC) [Entitic mass] 31.9 pg 26 - 34 pg [facility] MCHC (RBC) [Mass/Vol] 32.5 g/dL 31 - 37 g/dL [facility] MCV (RBC) [Entitic vol] 98.3 fL 80 - 100 fL [facility] Nucleated RBC (Bld) [#/Vol] 0.00 10*3/uL [facility] Nucleated RBC/100 WBC (Bld) [Ratio] 0.0 % [facility] Platelet mean volume (Bld) [Entitic vol] 9.6 fL 9.4 - 12.4 fL [facility] Platelets (Bld) [#/Vol] 243 10*3/uL [facility] RBC (Bld) [#/Vol] 3.60 10*6/uL Low [facility] WBC (Bld) [#/Vol] 20.02 10*3/uL [facility] CBCon 04-14-2020 Erythrocyte distribution width (RBC) [Entitic vol] 13.3 % 11.6 - 14.8 % [facility] Hematocrit (Bld) [Volume fraction] 38.8 % Low 41 - 53 % [facility] Hemoglobin (Bld) [Mass/Vol] 12.3 g/dL Low 13.5 - 17.5 g/dL [facility] Interpretation and review of laboratory results Abnormal [facility] MCH (RBC) [Entitic mass] 31.6 pg 26 - 34 pg [facility] MCHC (RBC) [Mass/Vol] 31.7 g/dL 31 - 37 g/dL [facility] MCV (RBC) [Entitic vol] 99.7 fL 80 - 100 fL [facility] Nucleated RBC (Bld) [#/Vol] 0.00 10*3/uL [facility] Nucleated RBC/100 WBC (Bld) [Ratio] 0.0 % [facility] Platelet mean volume (Bld) [Entitic vol] 9.4 fL 9.4 - 12.4 fL [facility] Platelets (Bld) [#/Vol] 243 10*3/uL [facility] RBC (Bld) [#/Vol] 3.89 10*6/uL Low [facility] WBC (Bld) [#/Vol] 13.92 10*3/uL [facility] CTA Pulm Art and CT Abd Pelv [...] canal and mild foraminal narrowing at L4-L5. [facility] Negative for acute pulmonary embolism. Respiratory motion limits evaluation to the proximal segmental level. Multifocal pneumonia with trace left parapneumonic effusion. No acute abdominopelvic findings. RECOMMENDATIONS: Follow-up PA and lateral chest radiographs in 8 weeks. Workstation ID: [id number] [facility] Interface, Rad In Fu ji Speechq [...] radiographs in 8 weeks. Workstation ID: [id number] [facility] Chem 7on 04-14-2020 Anion gap [Moles/Vol] 13 mmol/L 10 - 2 0 mmol/L [facility] Chloride [Moles/Vol] 102 mmol/L 98 - 10 8 mmol/L [facility] Creatinine [Mass/Vol] 0.87 mg/dL 0.50 - 1.30 [facility] GFR/1.73 sq M predicted among non-blacks MDRD (S/P/Bld) [Vol rate/Area] The eGFR should be used for monitoring renal function only and not for medication dosing. [facility] GFR/1.73 sq M.predicted CKD-EPI (S/P/Bld) [Vol rate/Area] 94 >=60 mL/min/1.73 m2 [facility] Glucose [Mass/Vol] 84 mg/dL 65 - 99 mg/dL [facility] HCO3 [Moles/Vol] 26 mmol/L 21 - 32 mmol/L [facility] Interpretation and review of laboratory results Normal [facility] Potassium [Moles/Vol] 3.9 mmol/L 3.5 - 5.1 mmol/L [facility] Sodium [Moles/Vol] 137 mmol/L 135 - 145 mmol/L [facility] Urea nitrogen [Mass/Vol] 9 mg/dL 8 - 25 mg/dL [facility] Urea nitrogen/Creatinine [Mass ratio] 10.3 mg/mg [facility] EKGon 04-14-2020 Ordered by an unspec ified provider. [facility] Ordered by an unspec ified provider. [facility] LEGIONELLA ANTIGEN, URINEon 04-14-2020 Interpretation and review of laboratory results Normal [facility] L. pneumophila Ag Ql (U) Negative Negative for Legionella antigen [facility] Comment on above: COMMENT: Results may be affected if patient is on diuretics. INTERPRETATION OF RESULTS: Test detects Legionella pneumophilia serogroup 1 antigens in urine. Legionnaires disease cannot be ruled out since other serogroups and species may also cause disease. MRSA DNA Amplified Probeon 1 06-14-2019 Interpretation and review of laboratory results Normal [facility] MRSA DNA MOMO+probe Ql (Unsp spec) Negative MRSA NEGATIVE [facility] S.PNEUMONIAE URINE ANTIGENon 04-14-2020 Interpretation and review of laboratory results Normal [facility] S. pneumoniae Ag Ql (U) Negative Presumptive Negative for Pneumococcal pneumoniae [facility] Comment on above: A negative result rice ggests no current or recent pneumococcal infection. A negative result does not rule out Streptococcus pneumoniae infection since the antigen present in the sample may be below the detection limit of the test. TROPONINon 04-14-2020 Troponin T.cardiac [Mass/Vol] Normal [facility] Troponin T.cardiac [Mass/Vol] 8 ng/L <=22 [facility] BLOOD GAS, VBG WITH FULL WILLARD Jarod 04-13-2020 Base excess Calc (BldV) [Moles/Vol] 6.1 mmol/L High [facility] Calcium.ionized [Mass/Vol] 4.1 mg/dL Low 4.5 - 5.3 mg/dL [facility] Carboxyhemoglobin (BldA) [Mass fraction] 3.3 High <=1.5 % of total Hb [facility] Comment on above: Reference Ranges: [place] Non-smokers: <1.5% Smokers: 1.5-5.0% Heavy Smokers: 5.0-9.0% CO2 (BldV) [Partial pressure] 41.6 mm[Hg] [facility] Glucose [Mass/Vol] 102 mg/dL High 65 - 99 mg/dL [facility] HCO3 (Bld) [Moles/Vol] 30.0 mmol/L High 24 - 28 mmol/L [facility] Hematocrit (BldA) [Volume fraction] 42.4 % 41 - 53 % [facility] Hemoglobin (Bld) [Mass/Vol] 13.8 g/dL 13.5 - 18 g/dL [facility] Interpretation and review of laboratory results Abnormal [facility] Lactate [Moles/Vol] 1.1 mmol/L 0.6 - 2 mmol/L [facility] Methemoglobin (BldA) [Mass fraction] 0.7 % 0 - 2 % [facility] Oxygen (BldV) [Partial pressure] 68 mm[Hg] High [facility] Oxygen saturation in Venous blood 93.9 % High 40 - 70 % [facility] Oxyhemoglobin (BldA) [Mass fraction] 90.1 % No established reference range [facility] pH (BldV) 7.47 [pH] High [facility] Potassium [Moles/Vol] 3.3 mmol/L Low 3.5 - 5.1 mmol/L [facility] Sodium [Moles/Vol] 134 mmol/L Low 135 - 145 mmol/L [facility] CBC WITH AUTO DIFFERENTIALon 04-13-2020 Basophils (Bld) [#/Vol] 0.04 10*3/uL [facility] Basophils/100 WBC (Bld) 0.3 % [facility] Eosinophils (Bld) [#/Vol] 0.05 10*3/uL [facility] Eosinophils/100 WBC (Bld) 0.3 % [facility] Erythrocyte distribution width (RBC) [Entitic vol] 13.1 % 11.6 - 14.8 % [facility] Hematocrit (Bld) [Volume fraction] 43.6 % 41 - 53 % [facility] Hemoglobin (Bld) [Mass/Vol] 14.5 g/dL 13.5 - 17.5 g/dL [facility] Immature granulocytes (Bld) [#/Vol] 0.08 10*3/uL [facility] Immature granulocytes/100 WBC (Bld) 0.60 % [facility] Comment on above: The IG parameter is the percentage of metamyelocytes, myelocytes and promyelocytes. An immature granulocyte count (IG) of 1% or more suggests the possibility of infection, an IG count of 3% is very likely related to an infection. Interpretation and review of laboratory results Abnormal [facility] Lymphocytes (Bld) [#/Vol] 1.08 10*3/uL [facility] Lymphocytes/100 WBC (Bld) 7.4 % [facility] MCH (RBC) [Entitic mass] 31.9 pg 26 - 34 pg [facility] MCHC (RBC) [Mass/Vol] 33.3 g/dL 31 - 37 g/dL [facility] MCV (RBC) [Entitic vol] 96.0 fL 80 - 100 fL [facility] Monocytes (Bld) [#/Vol] 0.98 10*3/uL High [facility] Monocytes/100 WBC (Bld) 6.8 % [facility] Neutrophils (Bld) [#/Vol] 12.28 10*3/uL High [facility] Neutrophils/100 WBC (Bld) 84.6 % [facility] Nucleated RBC (Bld) [#/Vol] 0.00 10*3/uL [facility] Nucleated RBC/100 WBC (Bld) [Ratio] 0.0 % [facility] Platelet mean volume (Bld) [Entitic vol] 9.0 fL Low 9.4 - 12.4 fL [facility] Platelets (Bld) [#/Vol] 290 10*3/uL [facility] RBC (Bld) [#/Vol] 4.54 10*6/uL [facility] ealt WBC (Bld) [#/Vol] 14.51 10*3/uL [facility] COVID-19/Influenza A,B Molec ularon 04-13-2020 Influenza A Not Detected Not Detected [facility] Influenza B Not Detected Not Detected [facility] Interpretation and review of laboratory results Normal [facility] SARS-CoV-2 Not Detected Not Detected [facility] This test was perfor med under [...] the following links: For Healthcare Providers: https://www.fda.gov/media /975717/download For Patients: https://www.fda.gov/media /120718/download [facility] Chem 7on 04-13-2020 Anion gap [Moles/Vol] 12 mmol/L 10 - 2 0 mmol/L [facility] Chloride [Moles/Vol] 95 mmol/L Low 98 - 10 8 mmol/L [facility] Creatinine [Mass/Vol] 0.80 mg/dL 0.50 - 1.30 Oh [facility] GFR/1.73 sq M predicted among non-blacks MDRD (S/P/Bld) [Vol rate/Area] The eGFR should be used for monitoring renal function only and not for medication dosing. [facility] GFR/1.73 sq M.predicted CKD-EPI (S/P/Bld) [Vol rate/Area] 98 >=60 mL/min/1.73 m2 [facility] Glucose [Mass/Vol] 100 mg/dL High 65 - 99 mg/dL [facility] HCO3 [Moles/Vol] 28 mmol/L 21 - 32 mmol/L [facility] Interpretation and review of laboratory results Abnormal [facility] Potassium [Moles/Vol] 3.1 mmol/L Low 3.5 - 5.1 mmol/L [facility] Sodium [Moles/Vol] 132 mmol/L Low 135 - 145 mmol/L [facility] Urea nitrogen [Mass/Vol] 8 mg/dL 8 - 25 mg/dL [facility] Urea nitrogen/Creatinine [Mass ratio] 10.0 mg/mg [facility] DRUGS OF ABUSE SCREEN, URINE on 04-13-2020 Amphetamines Ql (U) None Detected None Detected [facility] Comment on above: Urine Amphetamine Cu toff: < 1000 ng/mL = None Detected Barbiturates Screen Ql (U) None Detected None Detected [facility] Comment on above: Urine Barbiturates C utoff: < 200 ng/mL = None Detected Benzodiazepines Ql (U) None Detected None Detected [facility] Comment on above: Urine Benzodiazepine Cutoff: < 200 ng/mL = None Detected Buprenorphine Ql (U) Positive Abnormal None Detected [facility] Comment on above: Urine Buprenorphine Cutoff: < 5 ng/mL = None Detected Cannabinoids Screen Ql (U) None Detected None Detected [facility] Comment on above: Urine Cannabinoids C utoff: < 50 ng/mL = None Detected Cocaine Ql (U) Positive Abnormal None Detected [facility] Comment on above: Urine Cocaine Cutoff : < 300 ng/mL = None Detected Fentanyl+Norfentanyl Screen Ql (U) Positive Abnormal None Detected [facility] Comment on above: Urine Fentanyl Cutof f: < 1 ng/mL = None Detected Interpretation and review of laboratory results Abnormal [facility] Methadone Screen Ql (U) None Detected None Detected [facility] Comment on above: Urine Methadone Cuto ff: < 300 ng/mL = None Detected Opiates Screen Ql (U) Positive Abnormal None Detected [facility] Comment on above: Urine Opiates Cutoff : < 300 ng/mL = None Detected Oxycodone Ql (U) None Detected None Detected Oh [facility] Comment on above: Urine Oxycodone Cuto ff: < 100 ng/mL = None Detected Screen results shoul d be used for treatment purposes only. Specimen will be kept for 2 weeks, if the sample is adequate. Confirmation testing can be initiated by calling the lab within 2 weeks. [facility] ECG 12-LEADon 04-13-2020 Armando Leal MD 04/13/2020 5:12 PM ECG 12 Lead Date/Time: 04/13/2020 5:12 PM Performed by: Armando Leal MD Authorized by: Armando Leal MD Interpreted by ED attending physician Rhythm: sinus rhythm and sinus tachycardia BPM: 114 normal TX interval normal QRS interval normal QT interval Clinical impression: sinus tachycardia [facility] Hepatic Function Panel (LFT) on 04-13-2020 Albumin [Mass/Vol] 3.6 g/dL 3.2 - 5.2 g/dL [facility] ALP [Catalytic activity/Vol] 76 U/L 40 - 150 U/L [facility] ALT [Catalytic activity/Vol] 26 U/L 0 - 40 U/L [facility] AST [Catalytic activity/Vol] 31 U/L 0 - 45 U/L [facility] Bilirubin [Mass/Vol] 0.5 mg/dL 0 - 1.3 mg/dL [facility] Bilirubin.conjugated [Mass/Vol] 0.2 mg/dL 0 - 0.4 mg/dL [facility] Protein [Mass/Vol] 6.3 g/dL 6 - 8 g/dL [facility] Lactic Acid, Plasmaon 2019 Interpretation and review of laboratory results Normal [facility] Lactate [Moles/Vol] 1.3 mmol/L 0.6 - 2 mmol/L [facility] Lipaseon 04-13-2020 Lipase [Catalytic activity/Vol] 27 U/L 15 - 65 U/L [facility] NT Pro BNPon 04-13-2020 Interpretation and review of laboratory results Abnormal [facility] Natriuretic peptide.B prohormone N-Terminal [Mass/Vol] 739 pg/mL High 0 - 300 pg/mL [facility] Pride Study Cut-offs Rule In: < /= 50 Years >450 pg/mL 51 Years - 75 Years >900 pg/mL 76 Years - 99 Years >1800 pg/mL Rule Out: All patients <300 pg/mL [facility] Otheron 04-13-2020 Extra Tube Hold for add-ons. [facility] Comment on above: Auto resulted. Interpretation and review of laboratory results Normal [facility] PT/INRon 04-13-2020 INR Coag (PPP) [Relative time] 1.1 {INR} [facility] Interpretation and review of laboratory results Normal [facility] PT Coag (PPP) [Time] 13.9 s [facility] During the induction phase of oral anticoagulation, the INR may not reflect the anticoagulation status of the patient. Therapeutic ranges for INR's are: Most clinical situations: INR 2.0-3.0 Mechanical Prosthetic Valve: INR 2.5-3.5 Critical: INR >5.0 [facility] TROPONINon 04-13-2020 Troponin T.cardiac [Mass/Vol] 16 ng/L <=22 [facility] Troponin T.cardiac [Mass/Vol] No biomarker evidence of cardiac injury. [facility] Troponin T.cardiac [Mass/Vol] 1 ng/L < = -/+ 7 change [facility] Troponin T.cardiac [Mass/Vol] 15 ng/L <=22 [facility] Troponin T.cardiac [Mass/Vol] Normal [facility] TSH with Reflex Free T4on Interpretation and review of laboratory results Normal [facility] TSH Qn 0.67 m[IU]/L [facility] URINALYSISon 04-13-2020 Bacteria Auto Ql (U) None Seen None Se en /hpf [facility] Bilirubin Ql (U) Negative Negative [facility] th Clarity Refractometry automated (U) Clear Clear [facility] Color (U) Yellow Colorless, Yellow [facility] Glucose Auto test strip (U) [Mass/Vol] Negative Negative mg/dL [facility] Hemoglobin Auto test strip Ql (U) Negative Negative [facility] Interpretation and review of laboratory results Abnormal [facility] Ketones (U) [Mass/Vol] Negative Negative mg/dL [facility] Leukocyte esterase Auto test strip Ql (U) Negative Negative [facility] Mucus Auto (Urine sed) [#/Area] Rare None Seen, Rare /lpf [facility] Nitrite Auto test strip Ql (U) Negative Negative [facility] pH (U) 6.0 [pH] [facility] Protein (U) [Mass/Vol] Negative Negative mg/dL [facility] Specific gravity (U) [Rel density] 1.020 [facility] Urobilinogen (U) [Mass/Vol] 2.0 mg/dL Abnormal <2.0 [facility] WBC Auto (Urine sed) [#/Area] 1 [facility] Microscopic examinat ion is performed on all urinalysis samples and only positive findings are reported. The test for blood on the chemical analytic portion of urinalysis may also be positive due to hemoglobinuria and myoglobinuria and if red blood cells are present they are quantified by microscopic examination. [facility] XR Chest 1 Viewon 04-13-2020 Interface, [...] bacterial, or atypical/viral pneumonia. Workstation ID: [id number] [facility] 1. New bilateral air space disease. Differential considerations would include multifocal bacterial, or atypical/viral pneumonia. Workstation ID: [id number] [facility] EXAMINATION: ONE XRA Y VIEW OF [...] markings are distinct. Osseous structures are stable. [facility] Basic Metabolic Panelon 11-0 Anion gap [Moles/Vol] 14 mmol/L 10 - 2 0 mmol/L [facility] Calcium [Mass/Vol] 8.4 mg/dL 8.4 - 10. 2 mg/dL [facility] Chloride [Moles/Vol] 99 mmol/L 98 - 10 8 mmol/L [facility] Creatinine [Mass/Vol] 0.75 mg/dL 0.50 - 1.30 [facility] GFR/1.73 sq M predicted among non-blacks MDRD (S/P/Bld) [Vol rate/Area] The eGFR should be used for monitoring renal function only and not for medication dosing. [facility] GFR/1.73 sq M.predicted CKD-EPI (S/P/Bld) [Vol rate/Area] 100 >=60 mL/min/1.73 m2 [facility] Glucose [Mass/Vol] 172 mg/dL High 65 - 99 mg/dL [facility] HCO3 [Moles/Vol] 25 mmol/L 21 - 32 mmol/L [facility] Interpretation and review of laboratory results Abnormal [facility] Potassium [Moles/Vol] 3.7 mmol/L 3.5 - 5.1 mmol/L [facility] Sodium [Moles/Vol] 134 mmol/L Low 135 - 145 mmol/L [facility] Urea nitrogen [Mass/Vol] 10 mg/dL 8 - 25 mg/dL [facility] Urea nitrogen/Creatinine [Mass ratio] 13.3 mg/mg [facility] CBCon 04-12-2020 Erythrocyte distribution width (RBC) [Entitic vol] 12.9 % 11.6 - 14.8 % [facility] Hematocrit (Bld) [Volume fraction] 38.0 % Low 41 - 53 % [facility] Hemoglobin (Bld) [Mass/Vol] 12.5 g/dL Low 13.5 - 17.5 g/dL [facility] Interpretation and review of laboratory results Abnormal [facility] MCH (RBC) [Entitic mass] 32.1 pg 26 - 34 pg [facility] MCHC (RBC) [Mass/Vol] 32.9 g/dL 31 - 37 g/dL [facility] MCV (RBC) [Entitic vol] 97.4 fL 80 - 100 fL [facility] Nucleated RBC (Bld) [#/Vol] 0.00 10*3/uL [facility] Nucleated RBC/100 WBC (Bld) [Ratio] 0.0 % [facility] Platelet mean volume (Bld) [Entitic vol] 9.2 fL Low 9.4 - 12.4 fL [facility] Platelets (Bld) [#/Vol] 253 10*3/uL [facility] RBC (Bld) [#/Vol] 3.90 10*6/uL Low [facility] WBC (Bld) [#/Vol] 7.87 10*3/uL [facility] DRUGS OF ABUSE SCREEN, URINE on 04-12-2020 Amphetamines Ql (U) None Detected None Detected [facility] Comment on above: Urine Amphetamine Cu toff: < 1000 ng/mL = None Detected Barbiturates Screen Ql (U) None Detected None Detected [facility] Comment on above: Urine Barbiturates C utoff: < 200 ng/mL = None Detected Benzodiazepines Ql (U) None Detected None Detected [facility] Comment on above: Urine Benzodiazepine Cutoff: < 200 ng/mL = None Detected Buprenorphine Ql (U) Positive Abnormal None Detected [facility] Comment on above: Urine Buprenorphine Cutoff: < 5 ng/mL = None Detected Cannabinoids Screen Ql (U) None Detected None Detected [facility] Comment on above: Urine Cannabinoids C utoff: < 50 ng/mL = None Detected Cocaine Ql (U) Positive Abnormal None Detected [facility] Comment on above: Urine Cocaine Cutoff : < 300 ng/mL = None Detected Fentanyl+Norfentanyl Screen Ql (U) Positive Abnormal None Detected [facility] Comment on above: Urine Fentanyl Cutof f: < 1 ng/mL = None Detected Interpretation and review of laboratory results Abnormal [facility] Methadone Screen Ql (U) None Detected None Detected [facility] Comment on above: Urine Methadone Cuto ff: < 300 ng/mL = None Detected Opiates Screen Ql (U) None Detected None Detect ed [facility] Comment on above: Urine Opiates Cutoff : < 300 ng/mL = None Detected Oxycodone Ql (U) None Detected None Detected [facility] Comment on above: Urine Oxycodone Cuto ff: < 100 ng/mL = None Detected Screen results shoul d be used for treatment purposes only. Specimen will be kept for 2 weeks, if the sample is adequate. Confirmation testing can be initiated by calling the lab within 2 weeks. [facility] Magnesium Levelon 04-12-2020 Interpretation and review of laboratory results Normal [facility] Magnesium [Mass/Vol] 1.9 mg/dL 1.6 - 2 .4 mg/dL [facility] Phosphoruson 04-12-2020 Interpretation and review of laboratory results Abnormal [facility] Phosphate [Mass/Vol] 2.6 mg/dL Low 2.7 - 4 .5 mg/dL [facility] BLOOD GAS, VBG WITH FULL WILLARD Jarod 04-11-2020 Base excess Calc (BldV) [Moles/Vol] 4.6 mmol/L High [facility] Calcium.ionized [Mass/Vol] 4.4 mg/dL Low 4.5 - 5.3 mg/dL [facility] Carboxyhemoglobin (BldA) [Mass fraction] 3.7 High <=1.5 % of total Hb [facility] Comment on above: Reference Ranges: Suburb Non-smokers: <1.5% Smokers: 1.5-5.0% Heavy Smokers: 5.0-9.0% CO2 (BldV) [Partial pressure] 54.5 mm[Hg] High [facility] Glucose [Mass/Vol] 103 mg/dL High 65 - 99 mg/dL [facility] HCO3 (Bld) [Moles/Vol] 30.8 mmol/L High 24 - 28 mmol/L [facility] Hematocrit (BldA) [Volume fraction] 44.8 % 41 - 53 % [facility] Hemoglobin (Bld) [Mass/Vol] 14.6 g/dL 13.5 - 18 g/dL [facility] Interpretation and review of laboratory results Abnormal [facility] Lactate [Moles/Vol] 1.4 mmol/L 0.6 - 2 mmol/L [facility] Methemoglobin (BldA) [Mass fraction] 0.6 % 0 - 2 % [facility] Oxygen (BldV) [Partial pressure] 28 mm[Hg] [facility] Oxygen saturation in Venous blood 50.7 % 40 - 70 % [facility] Oxyhemoglobin (BldA) [Mass fraction] 48.5 % No established reference range [facility] pH (BldV) 7.37 [pH] [facility] Potassium [Moles/Vol] 3.5 mmol/L 3.5 - 5.1 mmol/L [facility] Sodium [Moles/Vol] 136 mmol/L 135 - 145 mmol/L [facility] 04-11-2020 Anion gap [Moles/Vol] 14 mmol/L 10 - 2 0 mmol/L [facility] Calcium [Mass/Vol] 9.0 mg/dL 8.4 - 10. 2 mg/dL [facility] Chloride [Moles/Vol] 97 mmol/L Low 98 - 10 8 mmol/L [facility] Creatinine [Mass/Vol] 0.86 mg/dL 0.50 - 1.30 [facility] GFR/1.73 sq M predicted among non-blacks MDRD (S/P/Bld) [Vol rate/Area] The eGFR should be used for monitoring renal function only and not for medication dosing. [facility] GFR/1.73 sq M.predicted CKD-EPI (S/P/Bld) [Vol rate/Area] 95 >=60 mL/min/1.73 m2 [facility] Glucose [Mass/Vol] 100 mg/dL High 65 - 99 mg/dL [facility] HCO3 [Moles/Vol] 30 mmol/L 21 - 32 mmol/L [facility] Interpretation and review of laboratory results Abnormal [facility] Potassium [Moles/Vol] 3.7 mmol/L 3.5 - 5.1 mmol/L [facility] Sodium [Moles/Vol] 137 mmol/L 135 - 145 mmol/L [facility] Urea nitrogen [Mass/Vol] 11 mg/dL 8 - 25 mg/dL [facility] Urea nitrogen/Creatinine [Mass ratio] 12.8 mg/mg [facility] CBC WITH AUTO DIFFERENTIALon 04-11-2020 Basophils (Bld) [#/Vol] 0.05 10*3/uL [facility] Basophils/100 WBC (Bld) 0.4 % [facility] Eosinophils (Bld) [#/Vol] 0.51 10*3/uL High [facility] Eosinophils/100 WBC (Bld) 3.6 % [facility] Erythrocyte distribution width (RBC) [Entitic vol] 12.9 % 11.6 - 14.8 % [facility] Hematocrit (Bld) [Volume fraction] 43.3 % 41 - 53 % [facility] Hemoglobin (Bld) [Mass/Vol] 14.3 g/dL 13.5 - 17.5 g/dL [facility] Immature granulocytes (Bld) [#/Vol] 0.04 10*3/uL [facility] Immature granulocytes/100 WBC (Bld) 0.30 % [facility] Comment on above: The IG parameter is the percentage of metamyelocytes, myelocytes and promyelocytes. An immature granulocyte count (IG) of 1% or more suggests the possibility of infection, an IG count of 3% is very likely related to an infection. Interpretation and review of laboratory results Abnormal [facility] Lymphocytes (Bld) [#/Vol] 1.24 10*3/uL [facility] Lymphocytes/100 WBC (Bld) 8.8 % [facility] MCH (RBC) [Entitic mass] 32.4 pg 26 - 34 pg [facility] MCHC (RBC) [Mass/Vol] 33.0 g/dL 31 - 37 g/dL [facility] MCV (RBC) [Entitic vol] 98.0 fL 80 - 100 fL [facility] Monocytes (Bld) [#/Vol] 1.04 10*3/uL High [facility] Monocytes/100 WBC (Bld) 7.4 % [facility] Neutrophils (Bld) [#/Vol] 11.22 10*3/uL High [facility] Neutrophils/100 WBC (Bld) 79.5 % [facility] Nucleated RBC (Bld) [#/Vol] 0.00 10*3/uL [facility] Nucleated RBC/100 WBC (Bld) [Ratio] 0.0 % [facility] Platelet mean volume (Bld) [Entitic vol] 9.6 fL 9.4 - 12.4 fL [facility] Platelets (Bld) [#/Vol] 296 10*3/uL [facility] RBC (Bld) [#/Vol] 4.42 10*6/uL Low [facility] ealth WBC (Bld) [#/Vol] 14.10 10*3/uL High [facility] COVID-19/Influenza A,B Molec ularon 04-11-2020 [facility]ed [facility] Interpretation and review of laboratory results Normal [facility] SARS-CoV-2 Not Detected Not Detected [facility] This test was perfor med under [...] the following links: For Healthcare Providers: https://www.fda.gov/media /122999/download For Patients: https://www.fda.gov/media /309852/download [facility] ECG 12-LEADon 04-11-2020 Maxime Liz MD 04/11/2020 9:56 PM EKG 12-lead Date/Time: 04/11/2020 9:56 PM Performed by: Maxime Liz MD Authorized by: Maxime Liz MD Interpreted by ED attending physician Rhythm: sinus rhythm and sinus tachycardia BPM: 101 Conduction: conduction normal ST Segments: ST segments normal T Waves: T waves normal Other: no other findings Clinical impression: normal ECG and sinus tachycardia [facility] Otheron 04-11-2020 Extra Tube Hold for add-ons. [facility] Comment on above: Auto resulted. XR Chest [...] contours are stable. Osseous structures appear normal. [facility] 1. Stable chest radiograph, without evidence of acute cardiopulmonary disease 2. Scar versus chronic atelectasis, right lung base Workstation ID: [id number] [facility] Interface, Rad In Fu ji Speechq [...] atelectasis, right lung base Workstation ID: [id number] [facility] XR CHEST AP/PA AND LATon 1. Emphysema. No superimposed acute pulmonary abnormality. Workstation ID: [id number] [facility] EXAMINATION: TWO XRA Y VIEWS OF [...] pneumothorax, or evidence of airspace pulmonary edema. [facility], Qasim Buckley [employer] Speechq - [...] No superimposed acute pulmonary abnormality. Workstation ID: [id number] [facility] BMPon 01-14-2020 Anion gap [Moles/Vol] 14 mmol/L 10 - 2 0 mmol/L [facility] Calcium [Mass/Vol] 8.8 mg/dL 8.4 - 10. 2 mg/dL [facility] Chloride [Moles/Vol] 107 mmol/L 98 - 10 8 mmol/L [facility] Creatinine [Mass/Vol] 0.98 mg/dL 0.50 - 1.30 [facility] GFR/1.73 sq M predicted among non-blacks MDRD (S/P/Bld) [Vol rate/Area] The eGFR should be used for monitoring renal function only and not for medication dosing. [facility] GFR/1.73 sq M.predicted CKD-EPI (S/P/Bld) [Vol rate/Area] 84 >=60 mL/min/1.73 m2 [facility] Glucose [Mass/Vol] 106 mg/dL High 65 - 99 mg/dL [facility] HCO3 [Moles/Vol] 27 mmol/L 21 - 32 mmol/L [facility] Interpretation and review of laboratory results Abnormal [facility] Potassium [Moles/Vol] 4.0 mmol/L 3.5 - 5.1 mmol/L [facility] Sodium [Moles/Vol] 144 mmol/L 135 - 145 mmol/L [facility] Urea nitrogen [Mass/Vol] 10 mg/dL 8 - 25 mg/dL [facility] Urea nitrogen/Creatinine [Mass ratio] 10.2 mg/mg [facility] CBC WITH AUTO DIFFERENTIALon 01-14-2020 Basophils (Bld) [#/Vol] 0.05 10*3/uL [facility] Basophils/100 WBC (Bld) 0.7 % [facility] Eosinophils (Bld) [#/Vol] 0.22 10*3/uL [facility] Eosinophils/100 WBC (Bld) 3.2 % [facility] Erythrocyte distribution width (RBC) [Entitic vol] 13.5 % 11.6 - 14.8 % [facility] Hematocrit (Bld) [Volume fraction] 45.8 % 41 - 53 % [facility] Hemoglobin (Bld) [Mass/Vol] 14.9 g/dL 13.5 - 17.5 g/dL [facility] Immature granulocytes (Bld) [#/Vol] 0.03 10*3/uL [facility] Immature granulocytes/100 WBC (Bld) 0.40 % [facility] Comment on above: The IG parameter is the percentage of metamyelocytes, myelocytes and promyelocytes. An immature granulocyte count (IG) of 1% or more suggests the possibility of infection, an IG count of 3% is very likely related to an infection. Interpretation and review of laboratory results Abnormal [facility] Lymphocytes (Bld) [#/Vol] 1.78 10*3/uL [facility] Lymphocytes/100 WBC (Bld) 25.8 % [facility] MCH (RBC) [Entitic mass] 32.4 pg 26 - 34 pg [facility] MCHC (RBC) [Mass/Vol] 32.5 g/dL 31 - 37 g[facility]dL [facility] (RBC) [Entitic vol] 99.6 fL 80 - 100 fL [facility] Monocytes (Bld) [#/Vol] 0.65 10*3/uL [facility] Monocytes/100 WBC (Bld) 9.4 % [facility] Neutrophils (Bld) [#/Vol] 4.16 10*3/uL [facility] Neutrophils/100 WBC (Bld) 60.5 % [facility] Nucleated RBC (Bld) [#/Vol] 0.00 10*3/uL [facility] Nucleated RBC/100 WBC (Bld) [Ratio] 0.0 % [facility] Platelet mean volume (Bld) [Entitic vol] 8.9 fL Low 9.4 - 12.4 fL [facility] Platelets (Bld) [#/Vol] 251 10*3/uL [facility] RBC (Bld) [#/Vol] 4.60 10*6/uL [facility] eah WBC (Bld) [#/Vol] 6.89 10*3/uL [facility] Molecularon 2019 Interpretation and review of laboratory results Normal [facility] SARS-CoV-2 Not Detected Not Detected [facility] Comment on above: This test was [...] at the following links: For Healthcare Providers: https://www.fda.gov/media/500530/download For Patients: https://www.fda.gov/media/750630/download ECG 12-LEADon 01-14-2020 Teresa Anderson MD 01/13 [...] segments normal T Waves: T waves normal TX Interval: 150 QRS Interval: 84 QT Interval: 412 Clinical impression: normal ECG Comments: There is a wandering baseline present in leads II, III and aVF aVL, likely due to patient movement. The remainder the patient's EKG remains unremarkable. [facility] EKGon 01-14-2020 Ordered by an unspec ified provider. [facility] Otheron 01-14-2020 Extra Tube Hold for add-ons. [facility] Comment on above: Auto resulted. TROPONINon 01-14-2020 Troponin T.cardiac [Mass/Vol] Normal [facility] Troponin T.cardiac [Mass/Vol] 11 ng/L <=22 [facility] XR Chest 1 Viewon 01-14-2020 1. Emphysema. No superimposed acute radiographic finding to account for patient's shortness of breath. Workstation ID: [id number] [facility] EXAMINATION: ONE XRA Y VIEW OF [...] vasculature in the upper lobes is attenuated. [facility] Qasim Bahena [employer] Speechq - [...] patient's shortness of breath. Workstation ID: [id number] [facility] XR CHEST AP/PA AND LATon 1. No acute process identified. 2. Emphysematous change. 3. Suspected right-sided pulmonary nodule or nodules. CT of the chest without contrast is recommended for further evaluation. 4. Question enlargement of the ascending thoracic aorta. RECOMMENDATIONS: CT [facility]. [facility]: [id number] [facility] EXAMINATION: TWO XRA Y VIEWS OF [...] is prominence of the ascending thoracic aorta. [facility], [facility] Fu ji Speechq - 12/29/2019 4:32 [...] thoracic aorta. RECOMMENDATIONS: CT chest without contrast. [facility] Work[facility] ID: [id number] [facility] Otheron 12-12-2019 Severe osteoarthriti s of the right hip, as with prior. Workstation ID: [id number] [facility] EXAMINATION: ONE XRA Y VIEW OF [...] gas. Bony mineralization is within normal limits. [facility], [facility] Speechq - 12/12/2019 12:11 [...] hip, as with prior. Workstation ID: [id number] [facility] Basic Metabolic Panelon 10-07 Anion gap [Moles/Vol] 14 mmol/L 10 - 2 0 mmol/L [facility] Calcium [Mass/Vol] 8.7 mg/dL 8.4 - 10. 2 mg/dL [facility] Chloride [Moles/Vol] 107 mmol/L 98 - 10 8 mmol/L [facility] Creatinine [Mass/Vol] 0.69 mg/dL 0.50 - 1.30 [facility] GFR/1.73 sq M predicted among non-blacks MDRD (S/P/Bld) [Vol rate/Area] The eGFR should be used for monitoring renal function only and not for medication dosing. [facility] GFR/1.73 sq M.predicted CKD-EPI (S/P/Bld) [Vol rate/Area] 104 >=60 mL/min/1.73 m2 [facility] Glucose [Mass/Vol] 86 mg/dL 65 - 99 mg/dL [facility] HCO3 [Moles/Vol] 24 mmol/L 21 - 32 mmol/L [facility] Interpretation and review of laboratory results Abnormal [facility] Potassium [Moles/Vol] 4.2 mmol/L 3.5 - 5.1 mmol/L [facility] Comment on above: Slightly Hemolyzed Sodium [Moles/Vol] 141 mmol/L 135 - 145 mmol/L [facility] Urea nitrogen [Mass/Vol] 15 mg/dL 8 - 25 mg/dL [facility] Urea nitrogen/Creatinine [Mass ratio] 21.7 mg/mg High [facility] CBCon 11-03-2019 Erythrocyte distribution width (RBC) [Entitic vol] 12.9 % 11.6 - 14.8 % [facility] Hematocrit (Bld) [Volume fraction] 44.9 % 41 - 53 % [facility] Hemoglobin (Bld) [Mass/Vol] 14.6 g/dL 13.5 - 17.5 g/dL [facility] Interpretation and review of laboratory results Abnormal [facility] MCH (RBC) [Entitic mass] 32.7 pg 26 - 34 pg [facility] MCHC (RBC) [Mass/Vol] 32.5 g/dL 31 - 37 g/dL [facility] MCV (RBC) [Entitic vol] 100.4 fL High 80 - 100 fL [facility] Nucleated RBC (Bld) [#/Vol] 0.00 10*3/uL [facility] Nucleated RBC/100 WBC (Bld) [Ratio] 0.0 % [facility] Platelet mean volume (Bld) [Entitic vol] 9.9 fL 9.4 - 12.4 fL [facility] Platelets (Bld) [#/Vol] 203 10*3/uL [facility] RBC (Bld) [#/Vol] 4.47 10*6/uL Low [facility] WBC (Bld) [#/Vol] 5.25 10*3/uL [facility] ealth BMPon 11-02-2019 Anion gap [Moles/Vol] 16 mmol/L 10 - 2 0 mmol/L [facility] Calcium [Mass/Vol] 9.1 mg/dL 8.4 - 10. 2 mg/dL [facility] Chloride [Moles/Vol] 101 mmol/L 98 - 10 8 mmol/L [facility] Creatinine [Mass/Vol] 0.81 mg/dL 0.50 - 1.30 [facility] GFR/1.73 sq M predicted among non-blacks MDRD (S/P/Bld) [Vol rate/Area] The eGFR should be used for monitoring renal function only and not for medication dosing. [facility] GFR/1.73 sq M.predicted CKD-EPI (S/P/Bld) [Vol rate/Area] 97 >=60 mL/min/1.73 m2 [facility] Glucose [Mass/Vol] 100 mg/dL High 65 - 99 mg/dL [facility] HCO3 [Moles/Vol] 25 mmol/L 21 - 32 mmol/L [facility] Interpretation and review of laboratory results Abnormal [facility] Potassium [Moles/Vol] 4.0 mmol/L 3.5 - 5.1 mmol/L [facility] Sodium [Moles/Vol] 138 mmol/L 135 - 145 mmol/L [facility] Urea nitrogen [Mass/Vol] 16 mg/dL 8 - 25 mg/dL [facility] Urea nitrogen/Creatinine [Mass ratio] 19.8 mg/mg [facility] CBC WITH AUTO DIFFERENTIALon 11-02-2019 Basophils (Bld) [#/Vol] 0.08 10*3/uL [facility] Basophils/100 WBC (Bld) 1.2 % [facility] Eosinophils (Bld) [#/Vol] 0.33 10*3/uL [facility] Eosinophils/100 WBC (Bld) 4.9 % [facility] Erythrocyte distribution width (RBC) [Entitic vol] 12.9 % 11.6 - 14.8 % [facility] Hematocrit (Bld) [Volume fraction] 47.2 % 41 - 53 % [facility] Hemoglobin (Bld) [Mass/Vol] 15.6 g/dL 13.5 - 17.5 g/dL [facility] Immature granulocytes (Bld) [#/Vol] 0.02 10*3/uL [facility] Immature granulocytes/100 WBC (Bld) 0.30 % [facility] Comment on above: The IG parameter is the percentage of metamyelocytes, myelocytes and promyelocytes. An immature granulocyte count (IG) of 1% or more suggests the possibility of infection, an IG count of 3% is very likely related to an infection. Lymphocytes (Bld) [#/Vol] 1.84 10*3/uL [facility] Lymphocytes/100 WBC (Bld) 27.1 % [facility] MCH (RBC) [Entitic mass] 32.1 pg 26 - 34 pg [facility] MCHC (RBC) [Mass/Vol] 33.1 g/dL 31 - 37 g/dL [facility] MCV (RBC) [Entitic vol] 97.1 fL 80 - 100 fL [facility] Monocytes (Bld) [#/Vol] 0.58 10*3/uL [facility] Monocytes/100 WBC (Bld) 8.5 % [facility] Neutrophils (Bld) [#/Vol] 3.94 10*3/uL [facility] Neutrophils/100 WBC (Bld) 58.0 % [facility] Nucleated RBC (Bld) [#/Vol] 0.00 10*3/uL [facility] Nucleated RBC/100 WBC (Bld) [Ratio] 0.0 % [facility] Platelet mean volume (Bld) [Entitic vol] 9.5 fL 9.4 - 12.4 fL [facility] Platelets (Bld) [#/Vol] 233 10*3/uL [facility] RBC (Bld) [#/Vol] 4.86 10*6/uL [facility] ealth WBC (Bld) [#/Vol] 6.79 10*3/uL [facility] COVID-19, Molecularon 2019 Interpretation and review of laboratory results Normal [facility] SARS-CoV-2 Not Detected Not Detected [facility] Comment on above: This test was [...] at the following links: For Healthcare Providers: https://www.fda.gov/media/239293/download For Patients: https://www.fda.gov/media/027860/download D-DIMER, QUANTITATIVEon 10-07 Fibrin D-dimer FEU (PPP) [Mass/Vol] 0.42 0.27 - 0.49 mcg/mL FEU [facility] Interpretation and review of laboratory results Normal [facility] A D-dimer concentrat ion of <0.5 micrograms per milliliter FEU is considered a low probability for pulmonary embolus (PE) and deep venous thrombosis (DVT). Results of this test should always be interpreted in conjunction with the patient's medical history,clinical presentation, and other findings. Clinical diagnosis should not be based on the results of the D-dimer alone. [facility] ECG 12-LEADon 11-02-2019 Atrial Rate 75 BPM [facility] P [place] -10 degrees [facility] P-R Interval 158 ms [facility] Q-T Interval 364 ms [facility] QRS Duration 94 ms [facility] QTC Calculation (Bezet) 406 ms [facility] R [place] 3 degrees [facility] T [place] -12 degrees [facility] Ventricular Rate 75 BPM [facility] th Normal sinus rhythm Inferior infarct , age undetermined Abnormal ECG When compared with ECG of 11-AUG-2019 12:15, Inferior infarct is now Present T wave inversion now evident in Inferior leads T wave amplitude has increased in Lateral leads Confirmed by Physician, ED ([id number]), food expeditor BILL SANTACRUZ ([id number]) on 11/02/2019 1:02:05 PM [facility] Interpretation and review of laboratory results Abnormal [facility] Angelika Oswald MD 11/02/2019 12:25 PM [...] criteria for WPW, Brugada, HOCM or ARVD [facility] ECHOCARDIOGRAM COMPLETEon Transthoracic Echocardiogram Patient: KAROLINA Vazquez [facility] Rec#: [id number] (Age): 1960(59y) Height: 187(cm)/73(in) Study Date: 11/02/2019 Weight: 63.5(kg)/140(lb Room#: 56 BSA: [id number] Type: Inpatient Loc: [facility] Sex: M Reading: Jeremiah Romero D.O. Referring: Lisa Howe Wringer Machine Operator: LATISHA DURAN History: Asthma. COPD. Hypertension. Diagnosis: ICD-10-PCS Syncope and collapse (R55) Syncope (780.2) CPT Code(s): ECHO COMPLETE W/ DOPPLER (91417) Study Quality The study quality is technically [...] at 11/02/2019 16:05:30 by: Jeremiah Romero D.O. [facility] Interface, Rad In [facility] Xper Echopacs - 11/02/2019 4:52 PM EDT Transthoracic Echocardiogram Patient: KAROLINA Vazquez [facility] Rec#: [id number] (Age): 1960(59y) Height: 187(cm)/73(in) Study Date: 11/02/2019 Weight: 63.5(kg)/140(lb Room#: 56 BSA: [id number] Type: Inpatient Loc: [facility] Sex: M Reading: Jeremiah Romero D.O. Referring: Lisa Howe Wringer Machine Operator: LATISHA DURAN History: Asthma. COPD. Hypertension. Diagnosis: ICD-10-PCS Syncope and collapse (R55) Syncope (780.2) CPT Code(s): ECHO COMPLETE W/ DOPPLER (06288) Study Quality The study quality is technically [...] at 11/02/2019 16:05:30 by: Jeremiah Romero D.O. [facility] EKGon 11-02-2019 Ordered by an unspec ified provider. [facility] Hemoglobin A1con 11-02-2019 Average glucose Estimated from glycated hemoglobin mass conc (Bld) 111 mg/dL 74 - 114 mg/dL [facility] HbA1c (Bld) [Mass fraction] 5.5 % 4.2 - 5.6 % [facility] Interpretation and review of laboratory results Normal [facility] Normal: 4.2% - 5.6% Increased risk for diabetes: 5.7% - 6.4% Diabetes: >= 6.5% Pediatrics: No established reference range Estimated average glucose: 74-114 mg/dL [facility] Lipid Panelon 11-02-2019 Cholesterol [Mass/Vol] 159 mg/dL 100 - 199 mg/dL [facility] Comment on above: National Cholesterol Education Program Guidelines: Cholesterol Desirable: <200 mg/dL Borderline High: 200-239 mg/dL High: greater than or equal to 240 mg/dL Cholesterol in HDL [Mass/Vol] 46 mg/dL 40 - 59 [facility] Comment on above: National Cholesterol Education Program Guidelines: HDL Cholesterol Low: <40 mg/dL Near Optimal: 40-59 mg/dL High: greater than or equal to 60 mg/dL Cholesterol in LDL [Mass/Vol] 102 mg/dL 10 - 130 mg/dL [facility] Comment on above: National Cholesterol Education Program Guidelines: LDL Cholesterol Optimal: <100 mg/dL Near Optimal/above Optimal: 100-129 mg/dL Borderline High: 130-159 mg/dL High: 160-189 mg/dL Very High: greater than or equal to 190 mg/dL Cholesterol non HDL [Mass/Vol] 113 mg/dL [facility] Comment on above: National Cholesterol Education Program Guidelines: NON HDL Cholesterol Desirable: <130 mg/dL Borderline High: 130-159 mg/dL High: 160-189 mg/dL Very High: > or = 190 mg/dL Cholesterol.total/Cho lesterol in HDL [Mass ratio] 3.5 {ratio} ratio [facility] Comment on above: Males Cholesterol/HD L Ratio: Average risk: 5.0 1/2 average risk: 3.4 2 x average risk: 9.6 Triglyceride [Mass/Vol] 56 mg/dL 30 - 150 mg/dL [facility] Comment on above: National Cholesterol Education Program Guidelines: Triglyceride Normal: <150 mg/dL Borderline High: 150-199 mg/dL High: 200-499 mg/dL Very High: greater than or equal to 500 mg/dL Metabolic Panelon 11-02-2019 Glucose [Mass/Vol] 90 mg/dL 65 - 99 mg/dL [facility] NT Pro BNPon 11-02-2019 Interpretation and review of laboratory results Normal [facility] Natriuretic peptide.B prohormone N-Terminal [Mass/Vol] <50 0 - 300 pg/mL [facility] Pride Study Cut-offs Rule In: < /= 50 Years >450 pg/mL 51 Years - 75 Years >900 pg/mL 76 Years - 99 Years >1800 pg/mL Rule Out: All patients <300 pg/mL [facility] Otheron 11-02-2019 Extra Tube Hold for add-ons. [facility] Comment on above: Auto resulted. Interpretation and review of laboratory results Normal [facility] TROPONINon 11-02-2019 Troponin T.cardiac [Mass/Vol] 8 ng/L <=22 [facility] Troponin T.cardiac [Mass/Vol] 0 ng/L < = -/+ 7 change [facility] Troponin T.cardiac [Mass/Vol] No biomarker evidence of cardiac injury. [facility] Troponin T.cardiac [Mass/Vol] 8 ng/L <=22 [facility] Troponin T.cardiac [Mass/Vol] Normal [facility] US RENAL AND BLADDERon 11-01 Unremarkable ultraso und of the kidneys and urinary bladder. [employer] Workstation ID: [id number] [facility] EXAMINATION: RETROPERITONEAL ULTRASOUND OF THE KIDNEYS AND URINARY BLADDER 11/02/2019 COMPARISON: 01/09/2018. HISTORY: Renal disease. FINDINGS: Kidneys: The right kidney measures 9.6 cm in length and the left kidney measures 10.1 cm in length. Kidneys demonstrate normal cortical echogenicity. No evidence of hydronephrosis or intrarenal stones. Bladder: Unremarkable appearance of the bladder. No significant post void residual. Bilateral ureteral jets are present. [facility] Interface, Rad In Fu ji Speechq [...] ultrasound of the kidneys and urinary bladder. [employer] Workstation ID: [id number] [facility] XR Chest 1 Viewon 11-02-2019 No acute process. Workstation ID: [id number] [facility] EXAMINATION: ONE XRA Y VIEW OF [...] The osseous structures are without acute process. [facility] Interface, Rad In Fu ji Speechq [...] process. IMPRESSION: No acute process. Workstation ID: [id number] [facility] US TESTICLE WITH COLOR FLOWo n 10-21-2019 No evidence of testi cular torsion or mass. Bilateral epididymal head cysts more pronounced on the right than the left. The cystic changes in the epididymides have shown progression from 10 years earlier. Small simple bilateral hydroceles. [facility]/[employer] Workstation ID: [id number] [facility] EXAMINATION: ULTRASO UND OF THE SCROTUM/TESTICLES [...] 3.5 cm x 2.7 cm in dimension. [facility], Rad In Fu ji Speechq - [...] 10 years earlier. Small simple bilateral hydroceles. [employer] Workstation ID: [id number] [facility] BMPon 08-11-2019 Anion gap [Moles/Vol] 14 mmol/L 10 - 2 0 mmol/L [facility] Calcium [Mass/Vol] 8.6 mg/dL 8.4 - 10. 2 mg/dL [facility] Chloride [Moles/Vol] 106 mmol/L 98 - 10 8 mmol/L [facility] Creatinine [Mass/Vol] 0.85 mg/dL 0.50 - 1.30 [facility] GFR/1.73 sq M predicted among non-blacks MDRD (S/P/Bld) [Vol rate/Area] The eGFR should be used for monitoring renal function only and not for medication dosing. [facility] GFR/1.73 sq M.predicted CKD-EPI (S/P/Bld) [Vol rate/Area] 95 >=60 mL/min/1.73 m2 [facility] Glucose [Mass/Vol] 101 mg/dL High 65 - 99 mg/dL [facility] HCO3 [Moles/Vol] 26 mmol/L 21 - 32 mmol/L [facility] Interpretation and review of laboratory results Abnormal [facility] Potassium [Moles/Vol] 4.0 mmol/L 3.5 - 5.1 mmol/L [facility] Sodium [Moles/Vol] 142 mmol/L 135 - 145 mmol/L [facility] Urea nitrogen [Mass/Vol] 15 mg/dL 8 - 25 mg/dL [facility] Urea nitrogen/Creatinine [Mass ratio] 17.6 mg/mg [facility] CBC WITH AUTO DIFFERENTIALon 08-11-2019 Basophils (Bld) [#/Vol] 0.07 10*3/uL [facility] Basophils/100 WBC (Bld) 1.0 % [facility] Eosinophils (Bld) [#/Vol] 1.12 10*3/uL High [facility] Eosinophils/100 WBC (Bld) 16.3 % [facility] Erythrocyte distribution width (RBC) [Entitic vol] 13.2 % 11.6 - 14.8 % [facility] Hematocrit (Bld) [Volume fraction] 41.9 % 41 - 53 % [facility] Hemoglobin (Bld) [Mass/Vol] 14.0 g/dL 13.5 - 17.5 g/dL [facility] Immature granulocytes (Bld) [#/Vol] 0.01 10*3/uL [facility] Immature granulocytes/100 WBC (Bld) 0.10 % [facility] Comment on above: The IG parameter is the percentage of metamyelocytes, myelocytes, and promyelocytes. Interpretation and review of laboratory results Abnormal [facility] Lymphocytes (Bld) [#/Vol] 0.98 10*3/uL [facility] Lymphocytes/100 WBC (Bld) 14.2 % [facility] MCH (RBC) [Entitic mass] 32.3 pg 26 - 34 pg [facility] MCHC (RBC) [Mass/Vol] 33.4 g/dL 31 - 37 g/dL [facility] MCV (RBC) [Entitic vol] 96.8 fL 80 - 100 fL [facility] Monocytes (Bld) [#/Vol] 0.80 10*3/uL [facility] Monocytes/100 WBC (Bld) 11.6 % [facility] Neutrophils (Bld) [#/Vol] 3.91 10*3/uL [facility] Neutrophils/100 WBC (Bld) 56.8 % [facility] Nucleated RBC (Bld) [#/Vol] 0.00 10*3/uL [facility] Nucleated RBC/100 WBC (Bld) [Ratio] 0.0 % [facility] Platelet mean volume (Bld) [Entitic vol] 9.3 fL 9 - 15.5 fL [facility] Platelets (Bld) [#/Vol] 203 10*3/uL [facility] RBC (Bld) [#/Vol] 4.33 10*6/uL Low [facility] eah WBC (Bld) [#/Vol] 6.89 10*3/uL [facility] ealth ECG 12-LEADon 08-11-2019 Atrial Rate 86 BPM [facility] P [place] 77 degrees [facility] P-R Interval 156 ms [facility] Q-T Interval 350 ms [facility] QRS Duration 96 ms [facility] QTC Calculation (Bezet) 418 ms [facility] R [place] 81 degrees [facility] T [place] 74 degrees [facility] Ventricular Rate 86 BPM [facility] Normal sinus rhythm Normal ECG When compared with ECG of 09-JAN-2017 20:09, No significant change was found Confirmed by Physician, ED ([id number]), food expeditor CARMEN FLEMING ([id number]) on 08/11/2019 12:22:02 PM [facility] NT Pro BNPon 08-11-2019 Interpretation and review of laboratory results Normal [facility] Natriuretic peptide.B prohormone N-Terminal [Mass/Vol] 73 pg/mL 0 - 300 pg/mL [facility] Pride Study Cut-offs Rule In: < /= 50 Years >450 pg/mL 51 Years - 75 Years >900 pg/mL 76 Years - 99 Years >1800 pg/mL Rule Out: All patients <300 pg/mL [facility] TROPONINon 08-11-2019 Troponin T.cardiac [Mass/Vol] ug/L <=22 ng/L [facility] Troponin T.cardiac [Mass/Vol] Normal [facility] XR CHEST AP/PA AND LATon Interface, [...] acute cardiopulmonary disease identified. Workstation ID: [id number] [facility] No acute cardiopulmo nary disease identified. Workstation ID: [id number] [facility] EXAMINATION: TWO XRA Y VIEWS OF THE CHEST 08/11/2019 12:20 pm COMPARISON: 08/04/2019 HISTORY: ORDERING SYSTEM PROVIDED HISTORY: copd cough; TECHNOLOGIST PROVIDED HISTORY: Illness/Other Acuity: Acute Reason for Exam: copd cough Type of Encounter: Subsequent/Follow-up Additional signs and symptoms: copd cough FINDINGS: The lungs and pleural sinuses are clear. The cardiomediastinal silhouette appears within normal limits. [facility] XR CHEST AP/PA AND LATon Changes of underlyin g COPD. No significant change in appearance of the chest. Workstation ID: [id number] [facility] EXAMINATION: TWO XRA Y VIEWS OF [...] the chest is similar to previous exam. [facility] Interface, Rad In Juliocesar souza Speechq [...] appearance of the chest. Workstation ID: [id number] [facility] [address] Dissection With Pelvison 01-10-2018 CT Dissection With Pelvis 1. No aortic dissection or aneurysm identified. No significant stenosis or occlusion. No acute findings identified within the chest, abdomen and pelvis. 2. Moderate pulmonary emphysema Workstation ID: [id number] Invalid Interpretation Code [facility] CT Dissection With Pelvis Interface, Rad In [facility] - 01/10/2018 12:07 AM EDT EXAMINATION: [...] emphysema Workstation ID: [id number] Invalid Interpretation Code [facility] CT Dissection With Pelvis EXAMINATION: CTA DISSECTION [...] findings within the pelvis. Invalid Interpretation Code [facility] EKGon 01-10-2018 EKG Ordered by an unspec ified provider. Invalid Interpretation Code [facility] Repeat EKGon 01-10-2018 Repeat EKG Elijah Reis DO 01/10/2018 3:07 AM Repeat EKG Date/Time: 01/10/2018 3:07 AM Performed by: ELIJAH REIS Authorized by: ELIJAH REIS Interpreted by ED attending physician Rhythm: sinus rhythm BPM: 81 Conduction: conduction normal normal TX interval normal QT interval Other findings: [facility] Comments: No acute ST segment elevation Invalid Interpretation Code [facility] Troponinon 01-10-2018 Interpretation and review of laboratory results Normal Invalid Interpretation Code [facility] Troponin T.cardiac mass conc ug/L Invalid Interpretation Code <0.040 ng/mL [facility] XR Chest 1 Viewon 01-10-2018 XR [...] contours. No acute fracture. Invalid Interpretation Code [facility] XR Chest 1 View No acute cardiopulmo nary process. Workstation ID: [id number] Invalid Interpretation Code [facility] XR Chest 1 View Interface, Rad In [...] ID: [id number] Invalid Interpretation Code [facility] BMPon 01-09-2018 Anion gap 3 molar conc [...] [facility] Comment on above: Reference Ranges: [facility] Non-smokers:<1.5% Smokers:1.5-5.0% Heavy Smokers:5.0-9.0% CO2 ppres (BldV) 45.9 mm Hg Invalid Interpretation Code 41.0 - 51.0 [facility] Glucose mass conc 107 mg/dL High 65 - 99 mg/dL [facility] HCO3 molar conc (Bld) 26.0 mmol/L Invalid Interpretation Code 24 - 28 mmol/L [facility] Hematocrit Volume Fraction (BldA) 38.4 % Low 41 - 53 % [facility] Hemoglobin mass conc (Bld) 12.5 g/dL Low 13.5 - 18 g/dL [facility] Interpretation and review of laboratory results Abnormal Invalid Interpretation Code [facility] Lactate molar conc 1.3 mmol/L Invalid Interpretation Code 0.6 - 2 mmol/L [facility] Methemoglobin/Hemoglo bin.total mass fraction (BldA) 0.6 % Invalid Interpretation Code 0 - 2 % [facility] Oxygen ppres (BldV) 48 mm Hg High 25 - 40 [facility] Oxygen saturation in Venous blood 83.2 % Invalid Interpretation Code [facility] Oxyhemoglobin/Hemoglo bin.total mass fraction (BldA) 79.5 % Low 94 - 98 % [facility] pH (BldV) 7.37 1 Invalid Interpretation Code 7.32 - 7.42 [facility] Potassium molar conc 3.7 mmol/L Invalid Interpretation Code 3.5 - 5.1 mmol/L [facility] Sodium molar conc 139 mmol/L Invalid Interpretation Code 135 - 145 mmol/L [facility] CBC Auto Differentialon 08-0 -2017 Basophils Auto #/vol (Bld) 0.06 K/mcL Invalid Interpretation Code 0.00 - 0.30 [facility] Basophils/100 WBC Auto (Bld) 1.2 % Invalid Interpretation Code [facility] Eosinophils Auto #/vol (Bld) 0.76 K/mcL High 0.00 - 0.50 [facility] Eosinophils/100 WBC Auto (Bld) 15.2 % Invalid Interpretation Code [facility] Erythrocyte distribution width Auto Entitic volume (RBC) 13.8 % Invalid Interpretation Code 11.6 - 14.8 % [facility] Hematocrit Auto Volume Fraction (Bld) 36.9 % Low 41 - 53 % [facility] Hemoglobin mass conc (Bld) 12.3 g/dL Low 13.5 - 17.5 g/dL [facility] Immature granulocytes #/vol (Bld) 0.01 K/mcL Invalid Interpretation Code 0.00 - 0.30 [facility] Immature granulocytes/100 WBC (Bld) 0.20 % Invalid Interpretation Code [facility] Comment on above: The IG parameter is the percentage of metamyelocytes, myelocytes, and promyelocytes. Interpretation and review of laboratory results Abnormal Invalid Interpretation Code [facility] Lymphocytes Auto #/vol (Bld) 1.69 K/mcL Invalid Interpretation Code 0.90 - 4.00 [facility] Lymphocytes/100 WBC Auto (Bld) 33.9 % Invalid Interpretation Code [facility] MCH Auto Entitic mass (RBC) 32.9 pg Invalid Interpretation Code 26 - 34 pg [facility] MCHC Auto mass conc (RBC) 33.3 g/dL Invalid Interpretation Code 31 - 37 g/dL [facility] MCV Auto Entitic volume (RBC) 98.7 fL Invalid Interpretation Code 80 - 100 fL [facility] Monocytes Auto #/vol (Bld) 0.78 K/mcL Invalid Interpretation Code 0.30 - 0.90 [facility] Monocytes/100 WBC Auto (Bld) 15.6 % Invalid Interpretation Code [facility] Neutrophils Auto #/vol (Bld) 1.69 K/mcL Low 1.70 - 7.00 [facility] Neutrophils/100 WBC Auto (Bld) 33.9 % Invalid Interpretation Code [facility] Nucleated RBC #/vol (Bld) 0.00 K/mcL Invalid Interpretation Code 0.00 - 0.00 [facility] Nucleated RBC/100 WBC Ratio (Bld) 0.0 % Invalid Interpretation Code [facility] Platelet mean volume Auto Entitic volume (Bld) 9.7 fL Invalid Interpretation Code 9 - 15.5 fL [facility] Platelets Auto #/vol (Bld) 200 K/mcL Invalid Interpretation Code 150 - 400 [facility] RBC Auto #/vol (Bld) 3.74 M/mcL Low 4.50 - 5.90 [facility] WBC Auto #/vol (Bld) 4.99 K/mcL Invalid Interpretation Code 4.50 - 11.00 [facility] CBC w/ Diffon 01-09-2018 CBC w/ Diff The following orders were created for panel order CBC w/ Diff. Procedure Abnormality Status --------- ------ CBC Auto Differential[[id number]] Abnormal Final result Please view results for these tests on the individual orders. Invalid Interpretation Code [facility] ECG 12 Leadon 01-09-2018 ECG 12 Lead Elijah Reis DO 01/09/2018 7:18 PM ECG 12 Lead Date/Time: 01/09/2018 7:17 PM Performed by: ELIJAH REIS Authorized by: ELIJAH REIS Interpreted by ED attending physician Rhythm: sinus rhythm BPM: 76 Conduction: conduction normal normal [place] interval normal QT interval Clinical impression: normal ECG Comments: No acute ST segment elevation Invalid Interpretation Code [facility] Lavender Topon 01-09-2018 Extra Tube Hold for add-ons. Invalid Interpretation Code [facility] Comment on above: Auto resulted. NT Pro BNPon 01-09-2018 Interpretation and review of laboratory results Normal Invalid Interpretation Code [facility] Natriuretic peptide.B prohormone N-Terminal mass conc <50 Invalid Interpretation Code 0 - 300 pg/mL [facility] NT Pro BNP Pride Study Cut-offs Rule In: < /= 50 Years >450 pg/mL 51 Years- 75 Years >900 pg/mL 76 Years - 99 Years >1800 pg/mL Rule Out: All patients <300 pg/mL Invalid Interpretation Code [facility] Campbell Drawon 01-09-2018 [place] Draw The following orders were created for panel order [place] Draw. Procedure Abnormality Status --------- ------ Lavender Top[[id number]] Final result Mint Green Top[[id number]] Final result Gold Top[[id number]] Final result Light Blue Top[[id number]] Final result Munoz Top[[id number]] Final result Please view results for these tests on the individual orders. Invalid Interpretation Code [facility] Troponinon 01-09-2018 Troponin T.cardiac mass conc ug/L Invalid Interpretation Code <0.040 ng/mL [facility] Urinalysison 01-09-2018 Bacteria Auto Ql (U) [...] (U) Negative Invalid Interpretation Code Negative mg/dL [facility] Leukocyte esterase Automated test strip Ql (U) Negative Invalid Interpretation Code Negative [facility] Mucus Auto #/area (Urine sed) Rare Invalid Interpretation Code None Seen, Rare /lpf [facility] Nitrite Automated test strip Ql (U) Negative Invalid Interpretation Code Negative [facility] pH Test strip (U) 6.0 [pH] Invalid Interpretation Code 5.0 - 7.0 [facility] Protein mass conc (U) Negative Invalid Interpretation Code Negative mg/dL [facility] RBC Auto #/area (Urine sed) <1 Invalid Interpretation Code 0 - 3 /hpf [facility] Specific gravity Automated test strip Relative Density (U) 1.016 1 Invalid Interpretation Code 1.005 - 1.025 [facility] Urobilinogen Test strip Qn (U) >=4.0 Abnormal <2.0 mg/dL [facility] WBC Auto #/area (Urine sed) <1 Invalid Interpretation Code 0 - 5 /hpf [facility] Urinalysis Microscopic examinat ion is performed on all urinalysis samples and only positive findings are reported. The test for blood on the chemical analytic portion of urinalysis may also be positive due to hemoglobinuria and myoglobinuria and if red blood cells are present they are quantified by microscopic examination. Invalid Interpretation Code [facility] EKGon 12-15-2017 Protein Ordered by an unspec ified provider. Invalid Interpretation Code [facility] Basic Metabolic Panelon Anion gap 16 mmol/L Invalid Interpretation Code 10 - 20 mmol/L [facility] Bicarbonate molar conc (S) 23 mmol/L Invalid Interpretation Code 21 - 32 mmol/L [facility] BUN/Creatinine Ratio 20.3 mg/mg High 10.0 - 20.0 [facility] Calcium 8.3 mg/dL Low 8.4 - 10.2 mg/dL [facility] Chloride 102 mmol/L Invalid Interpretation Code 98 - 108 mmol/L [facility] Creatinine 0.69 mg/dL Invalid Interpretation Code 0.5 - 1.3 mg/dL [facility] eGFR (non-black) The eGFR should be u sed for monitoring renal function only and not for medication dosing. Invalid Interpretation Code [facility] GFR/1.73 sq M.predicted CKD-EPI vol rate/area 105 mL/min/1.73 m2 Invalid Interpretation Code >=60 [facility] Glucose mass conc 149 mg/dL High 65 - 99 mg/dL [facility] Potassium molar conc 4.3 mmol/L Invalid Interpretation Code 3.5 - 5.1 mmol/L [facility] Sodium 137 mmol/L Invalid Interpretation Code 135 - 145 mmol/L [facility] Urea nitrogen 14 mg/dL Invalid Interpretation Code 8 - 25 mg/dL [facility] CBCon 12-14-2017 Erythrocyte distribution width Auto Entitic volume (RBC) 13.2 % Invalid Interpretation Code 11.6 - 14.8 % [facility] Erythrocytes (RBC) 4.10 M/mcL Low 4.50 - 5.90 [facility] L AB Hematocrit (HCT) 39.6 % Low 41 - 53 % [facility] Hemoglobin mass conc (Bld) 13.4 g/dL Low 13.5 - 17.5 g/dL [facility] Interpretation and review of laboratory results Abnormal Invalid Interpretation Code [facility] MCH 32.7 pg Invalid Interpretation Code 26 - 34 pg [facility] MCHC mass conc (RBC) 33.8 g/dL Invalid Interpretation Code 31 - 37 g/dL [facility] MCV 96.6 fL Invalid Interpretation Code 80 - 100 fL [facility] Nucleated erythrocytes 0.00 K/mcL Invalid Interpretation Code 0.00 - 0.00 [facility] Nucleated erythrocytes/100 erythrocytes 0.0 % Invalid Interpretation Code [facility] Platelet mean volume (PMV) 9.6 fL Invalid Interpretation Code 9 - 15.5 fL [facility] Platelets 227 K/mcL Invalid Interpretation Code 150 - 400 [facility] WBC (Leukocytes) 3.88 K/mcL Low 4.50 - 11.00 [facility] LA B CCTA Heart (Corn Cutter malik brewster)on 12-14-2017 CALACX 0.00 1 Invalid Interpretation Code [employer] [facility] CALALAD 0.00 1 Invalid Interpretation Code [employer] CALALM 0.00 1 Invalid Interpretation Code [facility] CALARCA 0.00 1 Invalid Interpretation Code [facility] CALATOT 0.00 1 Invalid Interpretation Code [employer] CCTA Heart (Corn Cutter read) 1. Total Agatston Score of 0 2. Left Main Coronary Artery is free of atherosclerotic disease. 3. Left Anterior Descending Artery is free of atherosclerotic disease. 4. Circumflex Artery is free of atherosclerotic disease. 5. Right Coronary Artery is free of atherosclerotic disease. CAD-RADS 0 Invalid Interpretation Code [employer] [facility] CT CCTA Heart With And Witho ut [...] demonstrate no acute abnormality. Invalid Interpretation Code [facility] CT CCTA Heart With And Without Contrast Interface, Rad In [facility] Speechq - 12/14/2017 11:39 AM EDT [...] be made for additional information. Moderate emphysema. [employer] Workstation ID: [id number] Invalid Interpretation Code [employer] CT CCTA Heart With And Without Contrast Redemonstration of ascending thoracic aortic aneurysm, better delineated on CTA chest 12/13/2017. Reference to that study can be made for additional information. Moderate emphysema. [employer] Workstation ID: [id number] Invalid Interpretation Code [employer] MR Cervical Spine Without Co ntraston 12-14-2017 MR Cervical Spine Without Contrast Interface, Rad In Pond5 [facility] - 12/14/2017 3:25 PM EDT EXAMINATION: MRI [...] overgrowth. There is mild spinal canal stenosis. Plliuzqr-ef-racyzk bilateral neural foraminal narrowing is present. C7-T1: [...] Multilevel neural foraminal narrowing as described above. [facility]/[employer] Workstation ID: [id number] Invalid Interpretation Code [employer] [facility] MR Cervical Spine Without Contrast EXAMINATION: MRI [...] Chronic obstructive pulmonary disease, unspecified COPD type ([facility]) R07.9 Chest pain, unspecified type R20.2 Paresthesia [...] overgrowth. There is mild spinal canal stenosis. Tefjavnm-[id number] bilateral neural foraminal narrowing is present. C7-T1: There is no disc bulge or protrusion present. There is no significant spinal canal stenosis or neural foraminal narrowing present. Invalid Interpretation Code [facility] MR Cervical Spine Without Contrast 1. Moderate [...] Multilevel neural foraminal narrowing as described above. [employer] Workstation ID: [id number] Invalid Interpretation Code [facility] MR Lumbar Spine Without Cont [facility] 12-14-2017 MR Lumbar Spine Without Contrast Interface, Rad In Pond5 [facility] - 12/15/2017 7:32 AM EDT EXAMINATION: MRI [...] Chronic obstructive pulmonary disease, unspecified COPD type ([facility]) R07.9 Chest pain, unspecified type R20.2 Paresthesia of right arm I71.2 Thoracic aortic aneurysm without rupture ([facility]) FINDINGS: BONES/ALIGNMENT: There is normal alignment of [...] arthropathy and thickening of the ligamentum flavum. [employer] Workstation ID: [id number] Invalid Interpretation Code [facility] MR Lumbar Spine Without Contrast 1. Focal 5 mm right paracentral disc protrusion at L5-S1 posteriorly displacing the right S1 nerve roots within the right lateral recess. 2. Mild spinal canal stenosis and moderate left neural foraminal narrowing at L4-5 secondary to a disc bulge, facet arthropathy and thickening of the ligamentum flavum. [employer] Workstation ID: [id number] Invalid Interpretation Code [facility] MR Lumbar Spine Without Contrast EXAMINATION: MRI [...] Chronic obstructive pulmonary disease, unspecified COPD type ([facility]) R07.9 Chest pain, unspecified type R20.2 Paresthesia of right arm I71.2 Thoracic aortic aneurysm without rupture ([facility]) FINDINGS: BONES/ALIGNMENT: There is normal alignment of [...] facet arthropathy is present. Invalid Interpretation Code [facility] MR Thoracic Spine Without Co ntraston 12-14-2017 Protein Focal 1 mm right paracentral disc protrusions at T6-7 and T7-8 without significant spinal canal stenosis or neural foraminal narrowing present within the thoracic spine. C/ Workstation ID: [id number] Invalid Interpretation Code [employer] MR Thoracic Spine Without Contrast Interface, Rad In Pond5 Speechq - 12/14/2017 4:01 PM EDT EXAMINATION: [...] Chronic obstructive pulmonary disease, unspecified COPD type ([facility]) R07.9 Chest pain, unspecified type R20.2 Paresthesia of right arm I71.2 Thoracic aortic aneurysm without rupture ([facility]) FINDINGS: BONES/ALIGNMENT: There is normal alignment of [...] foraminal narrowing present within the thoracic spine. [facility] Workstation ID: [id number] Invalid Interpretation Code [facility] MR Thoracic Spine Without Contrast EXAMINATION: MRI [...] Chronic obstructive pulmonary disease, unspecified COPD type ([facility]) R07.9 Chest pain, unspecified type R20.2 Paresthesia of right arm I71.2 Thoracic aortic aneurysm without rupture ([facility]) FINDINGS: BONES/ALIGNMENT: There is normal alignment of [...] or neural foraminal narrowing. Invalid Interpretation Code [facility] Troponinon 12-14-2017 Interpretation and review of laboratory results Normal Invalid Interpretation Code [facility] Troponin T.cardiac mass conc ug/L Invalid Interpretation Code <0.040 ng/mL [facility] Interpretation and review of laboratory results Normal Invalid Interpretation Code [facility] Troponin T.cardiac mass conc ug/L Invalid Interpretation Code <0.040 ng/mL [facility] Interpretation and review of laboratory results Normal Invalid Interpretation Code [facility] Troponin T.cardiac mass conc ug/L Invalid Interpretation Code <0.040 ng/mL [facility] Urinalysison 12-14-2017 Bacteria Auto Ql (U) None Seen Invalid Interpretation Code None Seen /hpf [facility] Bilirubin Ql (U) Negative Invalid Interpretation [...] Ql (U) Negative Invalid Interpretation Code Negative [facility] RBC Auto #/area (Urine sed) <1 Invalid Interpretation Code 0 - 3 /hpf [facility] Specific gravity Automated test strip Relative Density (U) >1.050 High 1.005 - 1.025 [facility] Urine, pH 6.0 [pH] Invalid Interpretation Code 5.0 - 7.0 [facility] Urine, protein Negative Invalid Interpretation Code Negative mg/dL [facility] Urine, urobilinogen >=4.0 Abnormal <2.0 mg/dL [facility] L AB WBC Auto #/area (Urine sed) <1 Invalid Interpretation Code 0 - 5 /hpf [facility] Yeast.budding Computer assisted #/area (U) Rare Abnormal None Seen /hpf [facility] Urinalysis Microscopic examinat ion is performed on all urinalysis samples and only positive findings are reported. The test for blood on the chemical analytic portion of urinalysis may also be positive due to hemoglobinuria and myoglobinuria and if red blood cells are present they are quantified by microscopic examination. Invalid Interpretation Code [facility] Urine Drug Screenon 12-15-19 18 Amphetamine [...] lab within 2 weeks. Invalid Interpretation Code [facility] Alcohol, [facility] 8 Ethanol mg/dL Invalid Interpretation Code <10.0 mg/dL [facility] Comment on above: Alcohol cutoff: <10. 00 mg/dL = None Detected Interpretation and review of laboratory results Normal Invalid Interpretation Code [facility] 12-13-2017 Anion gap 16 mmol/L Invalid Interpretation Code 10 - 20 mmol/L [facility] Bicarbonate molar conc (S) 25 mmol/L Invalid Interpretation Code 21 - 32 mmol/L [facility] BUN/Creatinine Ratio 20.5 mg/mg High 10.0 - 20.0 [facility] Calcium 8.6 mg/dL Invalid Interpretation Code 8.4 - 10.2 mg/dL [facility] Chloride 104 mmol/L Invalid Interpretation Code 98 - 108 mmol/L [facility] Creatinine 0.88 mg/dL Invalid Interpretation Code 0.5 - 1.3 mg/dL [facility] eGFR (non-black) The eGFR should be u sed for monitoring renal function only and not for medication dosing. Invalid Interpretation Code [facility] GFR/1.73 sq M.predicted CKD-EPI vol rate/area 95 mL/min/1.73 m2 Invalid Interpretation Code >=60 [facility] Glucose mass conc 114 mg/dL High 65 - 99 mg/dL [facility] Interpretation and review of laboratory results Abnormal Invalid Interpretation Code [facility] Potassium molar conc 3.4 mmol/L Low 3.5 - 5 .1 mmol/L [facility] Sodium 142 mmol/L Invalid Interpretation Code 135 - 145 mmol/L [facility] Urea nitrogen 18 mg/dL Invalid Interpretation Code 8 - 25 mg/dL [facility] CBC Auto Differentialon Basophils Auto #/vol (Bld) 0.10 K/mcL Invalid Interpretation Code 0.00 - 0.30 [facility] Basophils/100 WBC Auto (Bld) 1.6 % Invalid Interpretation Code [facility] Eosinophils 0.46 K/mcL Invalid Interpretation Code 0.00 - 0.50 [facility] Eosinophils/100 leukocytes 7.5 % Invalid Interpretation Code [facility] Erythrocyte distribution width Auto Entitic volume (RBC) 13.1 % Invalid Interpretation Code 11.6 - 14.8 % [facility] Erythrocytes (RBC) 4.46 M/mcL Low 4.50 - 5.90 [facility] AB Hematocrit (HCT) 43.1 % Invalid Interpretation Code 41 - 53 % [facility] Hemoglobin mass conc (Bld) 14.6 g/dL Invalid Interpretation Code 13.5 - 17.5 g/dL [facility] Immature granulocytes #/vol (Bld) 0.02 K/mcL Invalid Interpretation Code 0.00 - 0.30 [facility] Immature granulocytes/100 WBC (Bld) 0.30 % Invalid Interpretation Code [facility] Comment on above: The IG parameter is the percentage of metamyelocytes, myelocytes, and promyelocytes. Lymphocytes 1.83 K/mcL Invalid Interpretation Code 0.90 - 4.00 [facility] Lymphocytes/100 leukocytes 29.9 % Invalid Interpretation Code [facility] MCH 32.7 pg Invalid Interpretation Code 26 - 34 pg [facility] MCHC mass conc (RBC) 33.9 g/dL Invalid Interpretation Code 31 - 37 g/dL [facility] MCV 96.6 fL Invalid Interpretation Code 80 - 100 fL [facility] Monocytes 0.64 K/mcL Invalid Interpretation Code 0.30 - 0.90 [facility] Monocytes/100 leukocytes 10.5 % Invalid Interpretation Code [facility] Neutrophils 3.07 K/mcL Invalid Interpretation Code 1.70 - 7.00 [facility] Neutrophils/100 WBC Auto (Bld) 50.2 % Invalid Interpretation Code [facility] Nucleated erythrocytes 0.00 K/mcL Invalid Interpretation Code 0.00 - 0.00 [facility] Nucleated erythrocytes/100 erythrocytes 0.0 % Invalid Interpretation Code [facility] Platelet mean volume (PMV) 9.4 fL [...] Procedure Abnormality Status --------- ------ CBC Auto Differential[[id number]] Abnormal Final result Please view results for these tests on the individual orders. Invalid Interpretation Code [facility] CT Head Or Brain Without Con [...] skull or soft tissues. Invalid Interpretation Code [facility] CT Head Or Brain Without Contrast No acute intracranial abnormality. No significant change from the MRI. Workstation ID: [id number] Invalid Interpretation Code [employer] [facility] CT Head Or Brain Without Contrast Interface, Rad In Pond5 [facility] - 12/13/2017 7:25 PM EDT EXAMINATION: CT [...] MRI. Workstation ID: [id number] Invalid Interpretation Code [facility] CT Pulmonary Arterieson CT Pulmonary Arteries No acute pulmonary artery embolism. Emphysema. Ascending aortic aneurysm 4.1 cm. [facility] Workstation ID: [id number] Invalid Interpretation Code [facility]ITAL[facility] CT Pulmonary Arteries Interface, Rad In [facility] - 12/13/2017 9:57 PM EDT EXAMINATION: [...] embolism. Emphysema. Ascending aortic aneurysm 4.1 cm. [facility] Workstation ID: [id number] Invalid Interpretation Code [employer] CT Pulmonary Arteries EXAMINATION: CTA O F [...] tissue abnormality. Invalid Interpretation Code FUJI MANUEL [facility] EKG 12-leadon 12-13-2017 EKG 12-lead Lashawn Capone DO 12/13/2017 10:19 PM EKG 12-lead Date/Time: 12/13/2017 10:07 PM Performed by: LASHAWN CAPONE Authorized by: LASHAWN CAPONE Interpreted by ED attending physician Comparison: compared with previous ECG Similar to previous ECG Rhythm: sinus rhythm BPM: 71 Conduction: conduction normal QRS axis: normal normal TX interval normal QRS interval QT interval (ms): 481. Clinical impression: non-specific ECG Comments: She will ST depression in inferior leads but suspect this is due to wavy baseline Invalid Interpretation Code [facility] Munoz Topon 12-13-2017 Extra Tube Hold [...] Invalid Interpretation Code 30 - 150 mg/dL [facility] NT Pro BNPon 07-08-2018 Natriuretic peptide.B prohormone N-Terminal mass conc <50 Invalid Interpretation Code 0 - 300 pg/mL [facility] NT Pro BNP Pride Study Cut-offs Rule In: < /= 50 Years >450 pg/mL 51 Years- 75 Years >900 pg/mL 76 Years - 99 Years >1800 pg/mL Rule Out: All patients <300 pg/mL Invalid Interpretation Code [facility] PT/INRon 12-13-2017 INR Coag RelTime (Bld) During the induction phase of oral anticoagulation, the INR may not reflect the anticoagulation status of the patient. Therapeutic ranges for INR's are: Most clinical situations: INR 2.0-3.0 Mechanical Prosthetic Valve: INR 2.5-3.5 Critical: INR >5.0 Invalid Interpretation Code [facility] INR Coag RelTime (PPP) 1.0 {INR} Invalid Interpretation Code 0.8 - 1.1 [facility] Interpretation and review of laboratory results Normal Invalid Interpretation Code [facility] Prothrombin time (PT) Coag time (PPP) 13.2 s Invalid Interpretation Code 11.8 - 14.3 [facility] Drawon 12-13-2017 [facility] The following orders were created for panel order [facility]. Procedure Abnormality Status --------- ------ Gold Top[[id number]] Final result Munoz Top[[id number]] Final result Please view results for these tests on the individual orders. Invalid Interpretation Code [facility] Troponinon 12-13-2017 Troponin T.cardiac mass conc ug/L Invalid Interpretation Code <0.040 ng/mL [facility] XR Chest 1 Viewon 12-13-2017 Protein Scattered prominence of the interstitium is noted in the mid to upper lung zones. This is nonspecific and may be related to portable technique. Mild venous congestion not excluded entirely. Upright two view chest may be more helpful Workstation ID: [id number] Invalid Interpretation Code [facility] XR Chest 1 View Interface, Rad In [...] chest may be more helpful Workstation ID: [id number] Invalid Interpretation Code [employer] [facility] XR Chest 1 View EXAMINATION: SINGLE XRAY [...] no effusion or pneumothorax. Invalid Interpretation Code [employer] [facility] Basic Metabolic Panelon 08-0 Anion gap molar conc 13 mmol/L 10 - 20 mmol/L [facility] Calcium mass conc 8.6 mg/dL 8.4 - 10.2 mg/dL [facility] Chloride molar conc 107 mmol/L 98 - 108 mmol/L [facility] Creatinine mass conc 0.71 mg/dL 0.5 - 1 .3 mg/dL [facility] GFR/1.73 sq M predicted among non-blacks MDRD vol rate/area (S/P/Bld) The eGFR should be used for monitoring renal function only and not for medication dosing. [facility] GFR/1.73 sq M.predicted CKD-EPI vol rate/area (S/P/Bld) 105 mL/min/1.73 m2 >=60 [facility] Glucose mass conc 117 mg/dL High 65 - 99 mg/dL [facility] HCO3 molar conc 28 mmol/L 21 - 32 mmol/L [facility] Interpretation and review of laboratory results Abnormal [facility] Potassium molar conc 4.3 mmol/L 3.5 - 5 .1 mmol/L [facility] Sodium molar conc 144 mmol/L 135 - 145 mmol/L [facility] Urea nitrogen mass conc 17 mg/dL 8 - 25 mg/dL [facility] Urea nitrogen/Creatinine mass ratio 23.9 mg/mg High 10.0 - 20.0 [facility] CBCon 01-10-2017 Erythrocyte distribution width Entitic volume (RBC) 13.5 % 11.6 - 14.8 % [facility] Hematocrit Volume Fraction (Bld) 39.6 % Low 41 - 53 % [facility] Hemoglobin mass conc (Bld) 13.3 g/dL Low 13.5 - 17.5 g/dL [facility] MCH Entitic mass (RBC) 32.8 pg 26 - 34 pg [facility] MCHC mass conc (RBC) 33.6 g/dL 31 - 37 g/dL [facility] MCV Entitic volume (RBC) 97.5 fL 80 - 100 fL [facility] Nucleated RBC #/vol (Bld) 0.00 K/mcL 0.00 - 0.00 [facility] Nucleated RBC/100 WBC Ratio (Bld) 0.0 % [facility] Platelet mean volume Entitic volume (Bld) 9.8 fL 9 - 15.5 fL [facility] Platelets #/vol (Bld) 232 K/mcL 150 - [address] [facility] RBC #/vol (Bld) 4.06 M/mcL Low 4.50 - 5.90 [facility] WBC #/vol (Bld) 6.63 K/mcL 4.50 - 11.00 [facility] Echocardiogram complete with bubble studyon 01-10-2017 Echocardiogram complete with bubble study Transthoracic Echocardiogram Patient: KAROLINA Vazquez [facility] Rec#: [id number] (Age): 1960(56y) Height: 187.96(cm)/73(i Study Date: 01/10/2017 Weight: 61.24(kg)/135(l Room#: 8214 BSA: [id number] Type: Inpatient Loc: CIL Sex: M Reading: Karma Mcgovern DO, FAC Referring: UGO JIANG R. Nurse: Juanita Diallo RN Wringer Machine Operator: Simba Redding RDCS, RV History: Asthma. COPD. Emphysema. Diagnosis: ICD-10-PCS Personal history of transient ischemic attack (TIA), and cerebral infarction without residual deficits (Z86.73) CVA, cerebral embolism with infarct (434.11) TIA, unspecified (435.9) CPT Code(s): ECHO COMPLETE W/ DOPPLER (74260) Study Quality The study quality is technically [...] 11:39:34 by: Karma Mcgovern, , FACC, [facility] Echocardiogram complete with bubble study Interface, Rad In [facility] - 01/10/2017 11:40 AM EDT Transthoracic Echocardiogram Patient: KAROLINA Vazquez [facility] Rec#: [id number] (Age): 1960(56y) Height: 187.96(cm)/73(i Study Date: 01/10/2017 Weight: 61.24(kg)/135(l Room#: 8214 BSA: [id number] Type: Inpatient Loc: CIL Sex: M Reading: Karma Mcgovern, DO, FAC Referring: UGO JIANG R. Nurse: Juanita Diallo RN Wringer Machine Operator: Simba Redding RDCS, RV History: Asthma. COPD. Emphysema. Diagnosis: ICD-10-PCS Personal history of transient ischemic attack (TIA), and cerebral infarction without residual deficits (Z86.73) CVA, cerebral embolism with infarct (434.11) TIA, unspecified (435.9) CPT Code(s): ECHO COMPLETE W/ DOPPLER (21607) Study Quality The study quality is technically [...] 11:39:34 by: Karma Mcgovern DO, FACC, [facility] MR Cow/Carotids/Brain With A nd [...] of the head was obtained with 3D iitj-uv-wmdnmf technique. MR angiogram of the neck was [...] The central intracranial flow voids of the [place] are visualized, implying that [...] quality is degraded secondary to motion artifact. [employer] MR Cow/Carotids/Brain With And Without Contrast 1. [...] in the central intracranial arteries of the [place]. 6. Equivocal, tiny, 1-2 mm aneurysm at the proximal cavernous left internal carotid artery versus artifact or an infundibulum. [employer] Workstation ID: [id number] [employer] [facility] MR Cow/Carotids/Brain With And Without Contrast Interface, Rad In [facility] Speechq - 01/10/2017 2:05 PM EDT [...] of the head was obtained with 3D exoh-tl-bmtyrp technique. MR angiogram of the neck was [...] The central intracranial flow voids of the [place] are visualized, implying that [...] in the central intracranial arteries of the [place]. 6. Equivocal, tiny, 1-2 mm aneurysm at the proximal cavernous left internal carotid artery versus artifact or an infundibulum. EYY/ads Workstation ID: [id number] [facility] XR MR Eyeon 01-10-2017 XR MR Eye Interface, Rad In [facility] - 01/09/2017 11:01 PM EDT EXAMINATION: XR [...] No radiopaque foreign body seen Workstation ID: [id number] [facility] XR MR Eye EXAMINATION: XR MR E [...] bodies in or adjacent to the orbits. [employer] [facility] XR MR Eye No radiopaque foreig n body seen Workstation ID: [id number] [facility] [employer] [facility] Alcohol, Medicalon 7 Ethanol mass conc mg/dL <10.0 mg/dL [facility] Comment on above: Alcohol cutoff: <10.00 mg/dL = None Detected Interpretation and review of laboratory results Normal [facility] CBC Auto Differentialon Basophils #/vol (Bld) 0.09 K/mcL 0.00 - 0.30 [facility] Basophils/100 WBC (Bld) 1.6 % [facility] Eosinophils #/vol (Bld) 0.81 K/mcL High 0.00 - 0.50 [facility] Eosinophils/100 WBC (Bld) 14.0 % [facility] Erythrocyte distribution width Entitic volume (RBC) 13.5 % 11.6 - 14.8 % [facility] Hematocrit Volume Fraction (Bld) 45.4 % 41 - 53 % [facility] Hemoglobin mass conc (Bld) 15.4 g/dL 13.5 - 17.5 g/dL [facility] Immature granulocytes #/vol (Bld) 0.01 K/mcL 0.00 - 0.30 [facility] Immature granulocytes/100 WBC (Bld) 0.20 % [facility] Comment on above: The IG parameter is the percentage of metamyelocytes, myelocytes, and promyelocytes. Lymphocytes #/vol (Bld) 1.94 K/mcL 0.90 - 4.00 [facility] Lymphocytes/100 WBC (Bld) 33.6 % [facility] MCH Entitic mass (RBC) 32.9 pg 26 - 34 pg [facility] MCHC mass conc (RBC) 33.9 g/dL 31 - 37 g/dL [facility] MCV Entitic volume (RBC) 97.0 fL 80 - 100 fL [facility] Monocytes #/vol (Bld) 0.54 K/mcL 0.30 - 0.90 [facility] Monocytes/100 WBC (Bld) 9.4 % [facility] Neutrophils #/vol (Bld) 2.38 K/mcL 1.70 - 7.00 [facility] Neutrophils/100 WBC (Bld) 41.2 % [facility] Nucleated RBC #/vol (Bld) 0.00 K/mcL 0.00 - 0.00 [facility] Nucleated RBC/100 WBC Ratio (Bld) 0.0 % [facility] Platelet mean volume Entitic volume (Bld) 9.4 fL 9 - 15.5 fL [facility] Platelets #/vol (Bld) 267 K/mcL 150 - 400 [facility] RBC #/vol (Bld) 4.68 M/mcL 4.50 - 5.90 [facility] WBC #/vol (Bld) 5.77 K/mcL 4.50 - 11.00 [facility] CBC w/ Diffon 01-09-2017 CBC w/ Diff The following orders were created for panel order CBC w/ Diff. Procedure Abnormality Status --------- ------ CBC Auto Differential[[id number]] Abnormal Final result Please view results for these tests on the individual orders. [employer] Work Phone: CMPon 01-09-2017 Albumin mass conc 3.9 g/dL 3.2 - 5.2 g/dL [facility] ALP enzyme act/vol 78 U/L 40 - 150 U/L [facility] ALT enzyme act/vol 12 U/L 0 - 40 U/L [facility] Anion gap molar conc 17 mmol/L 10 - 20 mmol/L [facility] AST enzyme act/vol 14 U/L 0 - 45 U/L [facility] Bilirubin mass conc 0.4 mg/dL 0 - 1.3 mg/dL [facility] Calcium mass conc 8.9 mg/dL 8.4 - 10.2 mg/dL [facility] Chloride molar conc 104 mmol/L 98 - 108 mmol/L [facility] Creatinine mass conc 0.75 mg/dL 0.5 - 1 .3 mg/dL [facility] GFR/1.73 sq M predicted among non-blacks MDRD vol rate/area (S/P/Bld) The eGFR should be used for monitoring renal function only and not for medication dosing. [facility] GFR/1.73 sq M.predicted CKD-EPI vol rate/area (S/P/Bld) 103 mL/min/1.73 m2 >=60 [facility] Glucose mass conc 79 mg/dL 65 - 99 mg/dL [facility] HCO3 molar conc 29 mmol/L 21 - 32 mmol/L [facility] Interpretation and review of laboratory results Abnormal [facility] Potassium molar conc 4.3 mmol/L 3.5 - 5 .1 mmol/L [facility] Protein mass conc 6.7 g/dL 6 - 8 g/dL [facility] Sodium molar conc 146 mmol/L High 135 - 145 mmol/L [facility] Urea nitrogen mass conc 14 mg/dL 8 - 25 mg/dL [facility] Urea nitrogen/Creatinine mass ratio 18.7 mg/mg 10.0 - 20.[address] [facility] [address] Head Without Contrast (St roke)on 01-09-2017 CT Head Without Contrast (Stroke) No acute intracranial abnormality. If there is persistent clinical concern for acute ischemia, consideration of further evaluation with MRI is suggested. Critical results were called by Dr. Juan Antonio Cole to Dr. MEKHI LEA on 01/09/2017 at 20:06. Workstation ID: [id number] [employer] [facility] CT Head Without Contrast (Stroke) Interface, Rad In Pond5 [facility] - 01/09/2017 8:09 PM EDT EXAMINATION: CT [...] LEA on 01/09/2017 at 20:06. Workstation ID: [id number] [facility] CT Head Without Contrast (Stroke) EXAMINATION: CT [...] appear well aerated. Bony calvarium appears unremarkable. [facility] EKG 12-leadon 01-09-2017 Atrial Rate 79 BPM MUSE P [place] 77 degrees MUSE P-R Interval 164 ms MUSE Q-T Interval 376 ms MUSE QRS Duration 88 ms MUSE QTC Calculation (Bezet) 431 ms MUSE R [place] 67 degrees MUSE T [place] 76 degrees MUSE Ventricular Rate 79 BPM MUSE EKG 12-lead Poor data qualit y, interpretation may be adversely affected Normal sinus rhythm Nonspecific ST abnormality Confirmed by BRI BALDERAS MD ([id number]) on 01/10/2017 6:56:28 AM MUSE Hemoglobin A1con 01-09-2017 Average glucose Estimated from glycated hemoglobin mass conc (Bld) 103 mg/dL 68 - 126 mg/dL [facility] Hemoglobin A1c/Hemoglobin.total mass fraction (Bld) 5.2 % 4.2 - 6 % [facility] POC Glucoseon 01-09-2017 Glucose mass conc 94 mg/dL 65 - 99 mg/dL [place] [employer] Work Phone: Interpretation and review of laboratory results Normal [employer] Work Phone: POC INRon 01-09-2017 INR Coag RelTime (Bld) 1.0 {INR} 0.8 - 1.1 PERSON [facility] Interpretation and review of laboratory results Normal [facility]ERSON [facility] Troponinon 01-09-2017 Troponin T.cardiac mass conc ug/L <0.040 ng/mL [facility] XR Chest 1 Viewon 01-09-2017 XR Chest 1 View 1. No acute cardiopulmonary disease. 2. Bilateral healing posterolateral rib fractures. [employer] Workstation ID: [id number] [facility] [place] XR Chest 1 View Interface, Rad In Fu ji Speechq - 01/09/2017 8:48 PM EDT EXAMINATION: XR CHEST PA/AP ADDITIONAL CLINICAL INFORMATION: cough COMPARISON: 06/27/2014. FINDINGS: Bilateral healing posterolateral rib fractures are noted. Cardiomediastinal silhouette and pulmonary vascularity are within normal limits. The lungs and the costophrenic angles are clear. IMPRESSION: 1. No acute cardiopulmonary disease. 2. Bilateral healing posterolateral rib fractures. [employer] Workstation ID: [id number] [facility] [place] XR Chest 1 View EXAMINATION: XR CHES T PA/AP ADDITIONAL CLINICAL INFORMATION: cough COMPARISON: 06/27/2014. FINDINGS: Bilateral healing posterolateral rib fractures are noted. Cardiomediastinal silhouette and pulmonary vascularity are within normal limits. The lungs and the costophrenic angles are clear. [facility] [place] Vital Signs Date Time Vital Sign Value Performing Clinician Faci lity 04-13-2025 11:01-0500 Body mass index (BMI) [Ratio] 20.85 kg/m2 Jihan Rodriguez MD Work Phone: [facility] 04-13-2025 11:01-0500 Body weight 71.67 kg Jihan Rodriguez MD Work Phone: [facility] 04-13-2025 11:01-0500 Diastolic blood pressure 89 mm[Hg] Jihan Rodriguez MD Work Phone: [facility] 04-13-2025 11:01-0500 Heart rate 99 /min Jihan Rodriguez MD Work Phone: [facility] 04-13-2025 11:01-0500 SaO2% (BldA) [Mass fraction] 95 % Jihan Rodriguez MD Work Phone: [facility] 04-13-2025 11:01-0500 Systolic blood pressure 129 mm[Hg] Jihan Rodriguez MD Work Phone: [facility] 03-14-2025 13:57-0400 Diastolic blood pressure 85 mm[Hg] Elijah Sanchez MD Work Phone: [facility] 03-14-2025 13:57-0400 Heart rate 92 /min Elijah Sanchez MD Work Phone: [facility] 03-14-2025 13:57-0400 Respiratory rate 18 /min Elijah Sanchez MD Work Phone: [facility] 03-14-2025 13:57-0400 Systolic blood pressure 131 mm[Hg] Elijah Sanchez MD Work Phone: [facility] 02-27-2025 13:26-0400 Body mass index (BMI) [Ratio] 22.03 kg/m2 Jihan Rodriguez MD Work Phone: [facility] 02-27-2025 13:26-0400 Body weight 75.75 kg Jihan Rodriguez MD Work Phone: [facility] 02-27-2025 13:26-0400 Diastolic blood pressure 65 mm[Hg] Jihan Rodriguez MD Work Phone: [facility] 02-27-2025 13:26-0400 Heart rate 100 /min Jihan Rodriguez MD Work Phone: [facility] 02-27-2025 13:26-0400 SaO2% (BldA) [Mass fraction] 94 % Jihan Rodriguez MD Work Phone: [facility] 02-27-2025 13:26-0400 Systolic blood pressure 104 mm[Hg] Jihan Rodriguez MD Work Phone: [facility] 02-01-2025 16:52-0400 Body temperature 98.1 [degF] Chalon Rosalva MD Work Phone: [facility] 02-01-2025 16:52-0400 Diastolic blood pressure 73 mm[Hg] Iker Blackwell MD Work Phone: [facility] 02-01-2025 16:52-0400 Heart rate 100 /min Iker Blackwell MD Work Phone: [facility] 02-01-2025 16:52-0400 Respiratory rate 22 /min Iker Blackwell MD Work Phone: [facility] 02-01-2025 16:52-0400 SaO2% (BldA) [Mass fraction] 94 % Iker Blackwell MD Work Phone: [facility] 02-01-2025 16:52-0400 Systolic blood pressure 103 mm[Hg] Iker Blackwell MD Work Phone: [facility] 02-01-2025 15:32-0400 Body height 185.42 cm Iker Blackwell MD Work Phone: [facility] 02-01-2025 15:32-0400 Body mass index (BMI) [Ratio] 22.5 kg/m2 Iker Blackwell MD Work Phone: [facility] 02-01-2025 15:32-0400 Body weight 77.4 kg Iker Blackwell MD Work Phone: [facility] 02-01-2025 15:32-0400 Inhaled oxygen flow rate 2 L/min Iker Blackwell MD Work Phone: [facility] 02-01-2025 11:28-0400 Diastolic blood pressure 88 mm[Hg] Elijah Sanchez MD Work Phone: [facility] 02-01-2025 11:28-0400 Heart rate 73 /min Elijah Sanchez MD Work Phone: [facility] 02-01-2025 11:28-0400 Systolic blood pressure 136 mm[Hg] Elijah Sanchez MD Work Phone: [facility] 11-11-2024 10:32-0400 Body mass index (BMI) [Ratio] 21.93 kg/m2 Jihan Wooten MD Work Phone: [facility] 11-11-2024 10:32-0400 Body weight 75.39 kg Jihan Wooten MD Work Phone: [facility] 11-11-2024 10:32-0400 Diastolic blood pressure 85 mm[Hg] Jihan Wooten MD Work Phone: [facility] 11-11-2024 10:32-0400 Heart rate 82 /min Jihan Wooten MD Work Phone: [facility] 11-11-2024 10:32-0400 Systolic blood pressure 143 mm[Hg] Jihan Wooten MD Work Phone: [facility] 10-28-2024 10:06-0400 Diastolic blood pressure 91 mm[Hg] Kvng Musico PA-C Work Phone: [facility] 10-28-2024 10:06-0400 Heart rate 109 /min Kvng Musico PA-C Work Phone: [facility] 10-28-2024 10:06-0400 Systolic blood pressure 135 mm[Hg] Kvng Musico PA-C Work Phone: [facility] 10-28-2024 09:47-0400 Body temperature 99.9 [degF] Kvng Musico PA-C Work Phone: [facility] 08-18-2024 11:09-0400 Body temperature 97.8 [degF] Iker Blackwell MD Work Phone: [facility] 08-18-2024 11:09-0400 Diastolic blood pressure 73 mm[Hg] Iker Blackwell MD Work Phone: [facility] 08-18-2024 11:09-0400 Heart rate 97 /min Iker Blackwell MD Work Phone: [facility] 08-18-2024 11:09-0400 Respiratory rate 20 /min Iker Blackwell MD Work Phone: [facility] 08-18-2024 11:09-0400 SaO2% (BldA) [Mass fraction] 97 % Iker Blackwell MD Work Phone: [facility] 08-18-2024 11:09-0400 Systolic blood pressure 110 mm[Hg] Iker Blackwell MD Work Phone: [facility] 08-18-2024 10:02-0400 Body height 185.42 cm Iker Blackwell MD Work Phone: [facility] 08-18-2024 10:02-0400 Body mass index (BMI) [Ratio] 19.5 kg/m2 Iker Blackwell MD Work Phone: [facility] 08-18-2024 10:02-0400 Body weight 67.13 kg Iker Blackwell MD Work Phone: [facility] 08-18-2024 10:02-0400 Inhaled oxygen flow rate 2 L/min Iker Blackwell MD Work Phone: [facility] 07-05-2024 09:19-0500 Diastolic blood pressure 86 mm[Hg] Iker Blackwell MD Work Phone: [facility] 07-05-2024 09:19-0500 Heart rate 78 /min Iker Blackwell MD Work Phone: [facility] 07-05-2024 09:19-0500 Respiratory rate 18 /min Iker Blackwell MD Work Phone: [facility] 07-05-2024 09:19-0500 Systolic blood pressure 137 mm[Hg] Iker Blackwell MD Work Phone: [facility] 07-05-2024 07:20-0500 Body height 185.42 cm Iker Blackwell MD Work Phone: [facility] 07-05-2024 07:20-0500 Body mass index (BMI) [Ratio] 21.9 kg/m2 Iker Blackwell MD Work Phone: [facility] 07-05-2024 07:20-0500 Body temperature 98.1 [degF] Iker Blackwell MD Work Phone: [facility] 07-05-2024 07:20-0500 Body weight 75.5 kg Iker Blackwell MD Work Phone: [facility] 07-05-2024 07:20-0500 Inhaled oxygen flow rate 3 L/min Iker Blackwell MD Work Phone: [facility] 07-05-2024 07:20-0500 SaO2% (BldA) [Mass fraction] 95 % Iker Blackwell MD Work Phone: [facility] 06-02-2024 19:51-0500 Diastolic blood pressure 101 mm[Hg] Iker Blackwell MD Work Phone: 1(840)997-588617 [place] [address] 06-02-2024 19:51-0500 Systolic blood pressure 152 mm[Hg] Iker Blackwell MD Work Phone: [facility] 06-02-2024 19:48-0500 Body temperature 97.9 [degF] Iker Blackwell MD Work Phone: [facility] 06-02-2024 19:48-0500 Heart rate 105 /min Iker Blackwell MD Work Phone: [facility] 06-02-2024 19:48-0500 Respiratory rate 17 /min Iker Blackwell MD Work Phone: [facility] 06-02-2024 19:48-0500 SaO2% (BldA) [Mass fraction] 97 % Iker Blackwell MD Work Phone: [facility] 06-02-2024 19:45-0500 Inhaled oxygen flow rate 3 L/min Iker Blackwell MD Work Phone: [facility] 06-02-2024 18:51-0500 Body mass index (BMI) [Ratio] 21.5 kg/m2 Iker Blackwell MD Work Phone: [facility] 06-02-2024 18:51-0500 Body weight 74.1 kg Iker Blackwell MD Work Phone: [facility] 05-31-2024 07:00-0500 Diastolic blood pressure 76 mm[Hg] Iker Blackwell MD Work Phone: 6(275)454-822017 [place] [address] 05-31-2024 07:00-0500 Heart rate 101 /min Iker Blackwell MD Work Phone: 0(384)745-291617 [place] [address] 05-31-2024 07:00-0500 Respiratory rate 16 /min Iker Blackwell MD Work Phone: 3(643)270-461917 [place] [address] 05-31-2024 07:00-0500 SaO2% (BldA) [Mass fraction] 98 % Iker Blackwell MD Work Phone: 7(688)314-308917 [place] [address] 05-31-2024 07:00-0500 Systolic blood pressure 128 mm[Hg] Iker Blackwell MD Work Phone: 4(605)391-142817 [place] [address] 05-31-2024 06:42-0500 Body temperature 98.4 [degF] Iker Blackwell MD Work Phone: 7(847)[phone] [place] [address] 05-31-2024 06:00-0500 Inhaled oxygen flow rate 2.5 L/min Iker Blackwell MD Work Phone: 1(842)507-313317 [place] [address] 05-30-2024 23:18-0500 Body mass index (BMI) [Ratio] 20.7 kg/m2 Iker Blackwell MD Work Phone: [facility] 05-30-2024 23:18-0500 Body weight 71.3 kg Iker Blackwell MD Work Phone: 1(397)737-899217 [place] [address] 05-23-2024 12:02-0500 Body temperature 98.3 [degF] Iker Blackwell MD Work Phone: [facility] 05-23-2024 12:02-0500 Diastolic blood pressure 87 mm[Hg] Iker Blackwell MD Work Phone: 1(393)393-143917 [place] [address] 05-23-2024 12:02-0500 Heart rate 101 /min Iker Blackwell MD Work Phone: [facility] 05-23-2024 12:02-0500 Respiratory rate 18 /min Iker Blackwell MD Work Phone: [facility] 05-23-2024 12:02-0500 SaO2% (BldA) [Mass fraction] 93 % Iker Blackwell MD Work Phone: [facility] 05-23-2024 12:02-0500 Systolic blood pressure 152 mm[Hg] Iker Blackwell MD Work Phone: [facility] 05-23-2024 07:59-0500 Inhaled oxygen flow rate 2 L/min Iekr Blackwell MD Work Phone: [facility] 05-20-2024 23:34-0500 Body mass index (BMI) [Ratio] 20.2 kg/m2 Iker Blackwell MD Work Phone: [facility] 05-20-2024 23:34-0500 Body weight 69.7 kg Iker Blackwell MD Work Phone: [facility] 05-18-2024 15:17-0500 Heart rate 109 /min Iker Blackwell MD Work Phone: [facility] 05-18-2024 15:17-0500 Respiratory rate 18 /min Iker Blackwell MD Work Phone: [facility] 05-18-2024 14:49-0500 Body weight 68.4 kg Iker Blackwell MD Work Phone: [facility] 05-18-2024 14:00-0500 Body temperature 98.1 [degF] Iker Blackwell MD Work Phone: [facility] 05-18-2024 14:00-0500 Inhaled oxygen flow rate 2 L/min Iker Blackwell MD Work Phone: [facility] 05-18-2024 14:00-0500 SaO2% (BldA) [Mass fraction] 96 % Iker Blackwell MD Work Phone: [facility] 05-18-2024 13:50-0500 Diastolic blood pressure 87 mm[Hg] Iker Blackwell MD Work Phone: [facility] 05-18-2024 13:50-0500 Systolic blood pressure 117 mm[Hg] Iker Blackwell MD Work Phone: [facility] 05-17-2024 21:26-0500 Body mass index (BMI) [Ratio] 19.8 kg/m2 Iker Blackwell MD Work Phone: [facility] 11-04-2023 13:44-0400 Body height 188 cm Teresa Gay MD, PhD Work Phone: [facility] 11-04-2023 13:44-0400 Body mass index (BMI) [Ratio] 18.54 kg/m2 Teresa Gay MD, PhD Work Phone: [facility] 11-04-2023 13:44-0400 Body weight 65.5 kg Teresa Gay MD, PhD Work Phone: [facility] 11-04-2023 13:44-0400 Diastolic blood pressure 66 mm[Hg] Teresa Gay MD, PhD Work Phone: [facility] 11-04-2023 13:44-0400 Heart rate 99 /min Teresa Gay MD, PhD Work Phone: [facility] 11-04-2023 13:44-0400 Respiratory rate 20 /min Teresa Gay MD, PhD Work Phone: [facility] 11-04-2023 13:44-0400 SaO2% (BldA) [Mass fraction] 92 % Teresa Gay MD, PhD Work Phone: [facility] 11-04-2023 13:44-0400 Systolic blood pressure 126 mm[Hg] Teresa Gay MD, PhD Work Phone: [facility] 10-31-2023 10:02-0400 Body temperature 98.4 [degF] Reji Al MD Work Phone: [facility] 10-31-2023 10:02-0400 Diastolic blood pressure 68 mm[Hg] Reji Al MD Work Phone: [facility] 10-31-2023 10:02-0400 Heart rate 94 /min Reji Al MD Work Phone: [facility] 10-31-2023 10:02-0400 Respiratory rate 18 /min Reji Al MD Work Phone: [facility] 10-31-2023 10:02-0400 SaO2% (BldA) [Mass fraction] 97 % Reji Al MD Work Phone: 2(217)610-838148 [address] 10-31-2023 10:02-0400 Systolic blood pressure 118 mm[Hg] Reji Al MD Work Phone: [facility] 10-29-2023 22:28-0400 Body height 188 cm Reji Al MD Work Phone: [facility] 10-29-2023 22:28-0400 Body mass index (BMI) [Ratio] 18.09 kg/m2 Reji Al MD Work Phone: [facility] 10-29-2023 22:28-0400 Body weight 63.91 kg Reji Al MD Work Phone: [facility] 10-27-2023 14:00-0400 Respiratory rate 18 /min Flores Hess DO Work Phone: [facility] 10-26-2023 23:22-0400 Diastolic blood pressure 68 mm[Hg] Flores Hess DO Work Phone: [facility] 10-26-2023 23:22-0400 Heart rate 109 /min Christopher Buchsieb DO Work Phone: [facility] 10-26-2023 23:22-0400 SaO2% (BldA) [Mass fraction] 92 % Flores Perazasieb DO Work Phone: [facility] 10-26-2023 23:22-0400 Systolic blood pressure 109 mm[Hg] Flores Perazasieb DO Work Phone: [facility] 10-26-2023 15:54-0400 Body temperature 97.81 [degF] Flores Perazasieb DO Work Phone: [facility] 10-25-2023 18:26-0400 Body mass index (BMI) [Ratio] 21.11 kg/m2 Flores Perazasieb DO Work Phone: [facility] 10-25-2023 18:26-0400 Body weight 72.58 kg Flores Cheryeb DO Work Phone: [facility] 10-02-2023 14:32-0400 Body height 185.4 cm Ivonne Henry MD Work Phone: [facility] 10-02-2023 14:32-0400 Body mass index (BMI) [Ratio] 18.07 kg/m2 Ivonne Henry MD Work Phone: [facility] 10-02-2023 14:32-0400 Body temperature 97.7 [degF] Ivonne Henry MD Work Phone: [facility] 10-02-2023 14:32-0400 Body weight 62.14 kg Ivonne Henry MD Work Phone: [facility] 10-02-2023 14:32-0400 Diastolic blood pressure 64 mm[Hg] Ivonne Henry MD Work Phone: [facility] 10-02-2023 14:32-0400 Heart rate 91 /min Ivonne Henry MD Work Phone: [facility] 10-02-2023 14:32-0400 SaO2% (BldA) [Mass fraction] 93 % Ivonne Henry MD Work Phone: [facility] 10-02-2023 14:32-0400 Systolic blood pressure 108 mm[Hg] Ivonne Henry MD Work Phone: [facility] 08-21-2021 07:38-0400 Body temperature 98.2 [degF] [facility] Work Phone: [facility] 08-21-2021 07:38-0400 Diastolic blood pressure 82 mm[Hg] [facility] Work Phone: [facility] 08-21-2021 07:38-0400 Heart rate 93 /min [facility] Work Phone: [facility] 08-21-2021 07:38-0400 Respiratory rate 15 /min [facility] Work Phone: [facility] 08-21-2021 07:38-0400 SaO2% (BldA) [Mass fraction] 94 % [facility] Work Phone: [facility] 08-21-2021 07:38-0400 Systolic blood pressure 142 mm[Hg] [facility] Work Phone: [facility] 08-05-2021 11:53-0500 Body height 185.4 cm Elpidio Degenova DO Work Phone: [facility] 08-05-2021 11:53-0500 Body mass index (BMI) [Ratio] 19.79 kg/m2 Elpidio Degenova DO Work Phone: [facility] 08-05-2021 11:53-0500 Body weight 68.04 kg Elpidio Degenova DO Work Phone: [facility] 06-25-2021 13:33-0500 Body height 185.4 cm Janusz Myrick PA-C Work Phone: [facility] 06-25-2021 13:33-0500 Body mass index (BMI) [Ratio] 19.79 kg/m2 Janusz Myrick PA-C Work Phone: [facility] 06-25-2021 13:33-0500 Body weight 68.04 kg Janusz Myrick PA-C Work Phone: [facility] 03-15-2021 09:53-0400 Body height 185.4 cm Teresa Terry MD Work Phone: [facility] 03-15-2021 09:53-0400 Body mass index (BMI) [Ratio] 18.34 kg/m2 Teresa Terry MD Work Phone: [facility] 03-15-2021 09:53-0400 Body weight 63.05 kg Teresa Terry MD Work Phone: [facility] 02-15-2021 10:14-0400 Body height 186.7 cm Teresa Terry MD Work Phone: [facility] 02-15-2021 10:14-0400 Body mass index (BMI) [Ratio] 20.43 kg/m2 Teresa Terry MD Work Phone: [facility] 02-15-2021 10:14-0400 Body weight 71.22 kg Teresa Terry MD Work Phone: [facility] 02-08-2021 08:46-0400 Body height 186.7 cm Jihan Orozco PA-C Work Phone: [facility] 02-08-2021 08:46-0400 Body mass index (BMI) [Ratio] 20.43 kg/m2 Jihan Orozco PA-C Work Phone: [facility] 02-08-2021 08:46-0400 Body weight 71.22 kg Jihan Orozco PA-C Work Phone: [facility] 01-22-2021 09:56-0400 Body temperature 98.4 [degF] Michelle Lindsey CNP Work Phone: [facility] 01-22-2021 09:56-0400 Diastolic blood pressure 80 mm[Hg] Michelle Forder [employer] Work Phone: [facility] 01-22-2021 09:56-0400 Heart rate 89 /min Michelle Lindsey [employer]PER[employer] Work Phone: [facility] 01-22-2021 09:56-0400 Respiratory rate 18 /min Michelle Lindsey [employer] Work Phone: [facility] 01-22-2021 09:56-0400 SaO2% (BldA) [Mass fraction] 91 % Michelle Lindsey [employer]PER[employer] Work Phone: [facility] 01-22-2021 09:56-0400 Systolic blood pressure 129 mm[Hg] Michelle Forder [employer]PER[employer] Work Phone: [facility] 01-14-2021 12:25-0400 Body height 186.7 cm Harpal Nieto MD Work Phone: [facility] 01-14-2021 12:25-0400 Body mass index (BMI) [Ratio] 20.43 kg/m2 Harpal Nieto MD Work Phone: [facility] 01-14-2021 12:25-0400 Body temperature 98.2 [degF] Harpal Nieto MD Work Phone: [facility] 01-14-2021 12:25-0400 Body weight 71.22 kg Harpal Nieto MD Work Phone: [facility] 01-14-2021 12:25-0400 Diastolic blood pressure 87 mm[Hg] Harpal Nieto MD Work Phone: [facility] 01-14-2021 12:25-0400 Heart rate 84 /min Harpal Nieto MD Work Phone: [facility] 01-14-2021 12:25-0400 SaO2% (BldA) [Mass fraction] 97 % Harpal Nieto MD Work Phone: [facility] 01-14-2021 12:25-0400 Systolic blood pressure 140 mm[Hg] Harpal Nieto MD Work Phone: [facility] 12-13-2020 15:04-0400 Diastolic blood pressure 86 mm[Hg] Ugo Ochoa MD Work Phone: [facility] 12-13-2020 15:04-0400 Heart rate 80 /min Ugo Ochoa MD Work Phone: [facility] 12-13-2020 15:04-0400 SaO2% (BldA) [Mass fraction] 96 % Ugo Ochoa MD Work Phone: [facility] 12-13-2020 15:04-0400 Systolic blood pressure 123 mm[Hg] Ugo Ochoa MD Work Phone: [facility] 12-13-2020 13:46-0400 Body height 185.4 cm Ugo Ochoa MD Work Phone: [facility] 12-13-2020 13:46-0400 Body mass index (BMI) [Ratio] 21.51 kg/m2 Ugo Ochoa MD Work Phone: [facility] 12-13-2020 13:46-0400 Body temperature 97.9 [degF] Ugo Ochoa MD Work Phone: [facility] 12-13-2020 13:46-0400 Body weight 73.94 kg Ugo Ochoa MD Work Phone: [facility] 12-13-2020 13:46-0400 Respiratory rate 19 /min Ugo Ochoa MD Work Phone: [facility] 10-03-2020 22:50-0400 Diastolic blood pressure 87 mm[Hg] Chontelle Degler DO Work Phone: [facility] 10-03-2020 22:50-0400 Heart rate 101 /min Chontelle Degler DO Work Phone: [facility] 10-03-2020 22:50-0400 SaO2% (BldA) [Mass fraction] 96 % Chontelle Degler DO Work Phone: [facility] 10-03-2020 22:50-0400 Systolic blood pressure 126 mm[Hg] Chontelle Degler DO Work Phone: [facility] 10-03-2020 19:10-0400 Body height 185.4 cm Chontelle Degler DO Work Phone: [facility] 10-03-2020 19:10-0400 Body mass index (BMI) [Ratio] 19.79 kg/m2 Chontelle Degler DO Work Phone: [facility] 10-03-2020 19:10-0400 Body temperature 99.5 [degF] Chontelle Degler DO Work Phone: [facility] 10-03-2020 19:10-0400 Body weight 68.04 kg Chontelle Degler DO Work Phone: [facility] 10-03-2020 19:10-0400 Respiratory rate 18 /min Chontelle Degler DO Work Phone: [facility] 09-21-2020 14:59-0400 Heart rate 93 /min Ugo Ochoa MD Work Phone: [facility] 09-21-2020 14:59-0400 Respiratory rate 17 /min Ugo Ochoa MD Work Phone: [facility] 09-21-2020 13:46-0400 Diastolic blood pressure 93 mm[Hg] Ugo Ochoa MD Work Phone: [facility] 09-21-2020 13:46-0400 Systolic blood pressure 122 mm[Hg] Ugo Ochoa MD Work Phone: [facility] 09-21-2020 11:20-0400 Body temperature 98.01 [degF] Ugo Ochoa MD Work Phone: [facility] 09-21-2020 11:20-0400 SaO2% (BldA) [Mass fraction] 96 % Ugo Ochoa MD Work Phone: [facility] 08-13-2020 11:20-0500 Body Temperature 99 [degF] [facility] 08-13-2020 11:20-0500 BP Diastolic 87 mm[Hg] [facility] 08-13-2020 11:20-0500 BP Systolic 161 mm[Hg] [facility] 08-13-2020 11:20-0500 Pulse (Heart Rate) 107 /min [facility] 08-13-2020 11:20-0500 Pulse Oximetry 93 % [facility] 08-13-2020 11:20-0500 Respiratory Rate 16 /min [facility] 08-12-2020 02:22-0500 BMI (Body Mass Index) 21.26 kg/m2 [facility] 08-12-2020 02:22-0500 Body weight 75.1 kg [facility] 08-09-2020 04:12-0500 Height 188 cm [facility] 07-26-2020 13:16-0500 Body Temperature 99 [degF] [facility] 07-26-2020 13:16-0500 BP Diastolic 108 mm[Hg] [facility] 07-26-2020 13:16-0500 BP Systolic 171 mm[Hg] [facility] 07-26-2020 13:16-0500 Pulse (Heart Rate) 98 /min [facility] 07-26-2020 13:16-0500 Pulse Oximetry 97 % [facility] 07-26-2020 13:16-0500 Respiratory Rate 18 /min [facility] 07-26-2020 11:16-0500 Body Temperature 98.6 [degF] [facility] 07-26-2020 11:16-0500 BP Diastolic 79 mm[Hg] [facility] 07-26-2020 11:16-0500 BP Systolic 132 mm[Hg] [facility] 07-26-2020 11:16-0500 Pulse (Heart Rate) 106 /min [facility] 07-26-2020 11:16-0500 Pulse Oximetry 94 % [facility] 07-26-2020 11:16-0500 Respiratory Rate 16 /min [facility] 07-25-2020 15:29-0500 BMI (Body Mass Index) 18.62 kg/m2 [facility] 15:29-0500 Body [facility] 65.77 [facility] 07-25-2020 15:29-0500 Height 188 cm [facility] 07-20-[facility] 08:42-0500 BMI (Body Mass Index) 19.13 kg/m2 Max Wright [facility] 07-20-2020 08:42-0500 Body Temperature 99.81 [degF] Max Adriana [facility] 07-20-2020 08:42-0500 Body weight 65.77 kg Max [facility] 07-20-2020 08:42-0500 BP Diastolic 71 mm[Hg] [facility] 07-20-2020 08:42-0500 BP Systolic 114 mm[Hg] [facility] 07-20-2020 08:42-0500 Height 185.4 cm [facility] 07-20-2020 08:42-0500 Pulse (Heart Rate) 117 /[facility] 08:42-0500 Pulse [facility]xim[facility] 93 % [facility] 07-19-2020 15:37-0500 Respiratory Rate 16 /min [facility] 07-19-2020 12:06-0500 Body Temperature 98.2 [degF] [facility] 07-[facility]-2020 12:06-0500 BP Diastolic 96 mm[Hg] [facility] 07-19-2020 12:06-0500 BP Systolic 157 mm[Hg] [facility] 07-19-2020 12:06-0500 Pulse (Heart Rate) 90 /min [facility] 07-19-2020 12:06-0500 Pulse Oximetry 94 % [facility] 07-19-2020 08:54-0500 BMI (Body Mass Index) 19.13 kg/m2 [facility] 07-19-2020 08:54-0500 Body weight 65.77 kg [facility] 07-19-2020 08:54-0500 Height 185.4 cm [facility] 07-10-2020 09:29-0500 BP Diastolic 114 mm[Hg] Ugo Ocho[facility] 07-10-2020 09:29-0500 BP Systolic 151 mm[Hg] Ugo Ocho[facility] 07-10-2020 09:29-0500 Pulse (Heart Rate) 100 /min Ugo Ocho[facility] 07-10-2020 09:29-0500 Pulse Oximetry 100 % Ugo Ocho[facility] 07-10-2020 09:29-0500 Respiratory Rate 14 /min U[facility]cho[facility] 07-10-2020 09:27-0500 Body Temperature 98.1 [degF] Ugo Ocho[facility] 07-05-2020 19:35-0500 BP Diastolic 91 mm[Hg] Angelika Rebolledo [facility] 07-05-2020 19:35-0500 BP Systolic 130 mm[Hg] Angelika Rebolled[facility] 07-05-2020 19:35-0500 Pulse (Heart Rate) 96 /min Angelika Rebolledo [facility] 07-05-2020 19:35-0500 Pulse Oximetry 93 % Angelika Rebolledo [facility] 07-05-2020 19:35-0500 Respiratory Rate 18 /min Angelika Rebolledo [facility] 07-05-2020 14:40-0500 Body Temperature 98.6 [degF] Angelika Rebolled[facility] 06-19-2020 10:39-0500 BMI (Body Mass Index) 20.53 kg/m2 Wally Oswald [facility] 06-19-2020 10:39-0500 Body Temperature 98.6 [degF] Wally [facility] 06-19-2020 10:39-0500 Body weight 70.6 kg Wally Osw[facility] 06-19-2020 10:39-0500 BP Diastolic 105 mm[Hg] Wally [facility] 06-19-2020 10:39-0500 BP Systolic 151 mm[Hg] Wally [facility] 06-19-2020 10:39-0500 Height 185.4 cm Wally Osw[facility] 06-19-2020 10:39-0500 Pulse (Heart Rate) 97 /min Wally [facility] 06-19-2020 10:39-0500 Pulse Oximetry 93 % Wally [facility] 06-19-2020 10:39-0500 Respiratory Rate 18 /min Wally [facility] 05-28-2020 15:30-0500 BP Diastolic 94 mm[Hg] Heriberto Billings [facility] 05-28-2020 15:30-0500 BP Systolic 124 mm[Hg] [facility]-28-2020 15:30-0500 Pulse (Heart Rate) 94 /min [facility] 05-28-2020 15:30-0500 Pulse Oximetry 97 % [facility] 05-28-2020 15:30-0500 Respiratory Rate 20 /min [facility] 05-28-2020 11:52-0500 BMI (Body Mass Index) 26.52 kg/m2 [facility] 05-28-2020 11:52-0500 Body Temperature 98.4 [degF] [facility] 05-28-2020 11:52-0500 Body weight 65.77 kg [facility] 05-28-2020 11:52-0500 Height 157.5 cm [facility] 04-21-2020 19:32-0500 Respiratory Rate 16 /min [facility] 04-21-2020 19:28-0500 Body Temperature 98.1 [degF] [facility] 04-21-2020 19:28-0500 BP Diastolic 89 mm[Hg] [facility] 04-21-2020 19:28-0500 BP Systolic 151 mm[Hg] [facility] 04-21-2020 19:28-0500 Pulse (Heart Rate) 99 /min [facility] 04-21-2020 19:28-0500 Pulse Oximetry 92 % Armando Leal [facility] 04-13-2020 16:31-0500 BMI (Body Mass Index) 18.47 kg/m2 [facility] 04-13-2020 16:31-0500 Body weight 63.5 kg Armando Leal [facility] 04-13-2020 16:31-0500 Height 185.4 cm Armando Leal [facility] 04-12-2020 11:02-0500 Body Temperature 98.1 [degF] Maxime Liz [facility] 04-12-2020 11:02-0500 BP Diastolic 77 mm[Hg] Maxime [facility] 11-05-2020 11:02-0500 BP Systolic 129 mm[Hg] Maxime Agusto [facility] 04-12-2020 11:02-0500 Pulse (Heart Rate) 93 /min Maxime Agust[facility] 04-12-2020 11:02-0500 Pulse Oximetry 93 % Maxime Agusto [facility] 04-12-2020 11:02-0500 Respiratory Rate 16 /min Maxime Agusto [facility] 04-12-2020 00:12-0500 BMI (Body Mass Index) 18.87 kg/m2 Maxime Agusto [facility] 04-12-2020 00:12-0500 Body weight 64.86 kg Maxime Agusto [facility] 04-12-2020 00:12-0500 Height 185.4 cm Maxime Agust[facility] 01-17-2020 08:58-0400 BMI (Body Mass Index) 20.8 kg/m2 [facility] 01-17-2020 08:58-0400 Body Temperature 99.1 [degF] [facility] 01-17-2020 08:58-0400 Body weight 72.48 kg Tray [facility] 01-17-2020 08:58-0400 BP [facility] 78 mm[facility]Hg[facility] 08:58-0400 BP Systolic 157 mm[Hg[facility] 01-17-2020 08:58-0400 Pulse (Heart Rate) 108 /min [facility] 01-17-2020 08:58-0400 Pulse Oximetry 92 % [facility] 01-17-2020 08:58-0400 Respiratory Rate 18 /min [facility] 01-14-2020 13:51-0400 BP Diastolic 86 mm[Hg] Teresa [facility] 01-14-2020 13:51-0400 BP Systolic 141 mm[Hg] Teresa [facility] 01-14-2020 13:51-0400 Pulse (Heart Rate) 69 /min Teresa [facility] 01-14-2020 13:51-0400 Pulse Oximetry 100 % Teresa [facility] 01-14-2020 12:01-0400 Body Temperature 97.7 [degF] Teresa [facility] 01-14-2020 11:53-0400 BMI (Body Mass Index) 20.82 kg/m2 Teresa [facility] 01-14-2020 11:53-0400 Body weight 72.58 kg Teresa [facility] 01-14-2020 11:53-0400 Height 186.7 cm Teresa [facility] 01-14-2020 11:53-0400 Respiratory Rate 18 /min Teresa [facility] 01-02-2020 10:51-0400 BMI (Body Mass Index) 20.03 kg/m2 Leonardo Perla [facility] 01-02-2020 10:51-0400 Body weight 70.76 kg Leonardo Perla [facility] 01-02-2020 10:51-0400 BP Diastolic 92 mm[Hg] [facility] 01-02-2020 10:51-0400 BP Systolic 134 mm[Hg] [facility] 01-02-2020 10:51-0400 Height 188 cm [facility] 01-02-2020 10:51-0400 Pulse (Heart Rate) 97 /min [facility] 01-02-2020 10:51-0400 Respiratory Rate 18 /min [facility] 12-12-2019 09:40-0400 BMI (Body Mass Index) 20.03 kg/m2 Teresa [facility] 12-12-2019 09:40-0400 Body weight 70.76 kg Teresa [facility] 12-12-2019 09:40-0400 Height 188 cm Teresa [facility] 11-03-2019 12:14-0400 Respiratory Rate 16 /min Angelika [facility] 11-03-2019 11:16-0400 Body Temperature 98.1 [degF] Angelika [facility] 11-03-2019 11:16-0400 BP Diastolic 85 mm[Hg] Angelika [facility] 11-03-2019 11:16-0400 BP Systolic 151 mm[Hg] Angelika [facility] 11-03-2019 11:16-0400 Pulse (Heart Rate) 75 /min Angelika [facility] 11-03-2019 11:16-0400 Pulse Oximetry 96 % Angelika [facility] 11-02-2019 16:15-0400 BMI (Body Mass Index) 18.85 kg/m2 Angelika [facility] 11-02-2019 16:15-0400 Body weight 66.6 kg Angelika [facility] 11-02-2019 16:15-0400 Height 188 cm Angelika [facility] 08-11-2019 13:18-0500 BP Diastolic 108 mm[Hg] Maxime [facility] 08-11-2019 13:18-0500 BP Systolic 142 mm[Hg] Maxime Liz [facility] 08-11-2019 13:18-0500 Pulse Oximetry 98 % Maxime [facility] 08-11-2019 12:09-0500 Body Temperature 98.49 [degF] Maxime [facility] 08-11-2019 12:01-0500 Pulse (Heart Rate) 102 /min Maxime [facility] 08-11-2019 12:01-0500 Respiratory Rate 22 /min Maxime [facility] 01-10-2018 01:01-0400 BP Diastolic 76 mm[Hg] [facility] 01-10-2018 01:01-0400 BP Systolic 104 mm[Hg] [facility] 01-10-2018 01:01-0400 Pulse (Heart Rate) 87 /min [facility] 01-10-2018 01:01-0400 Pulse Oximetry 93 % [facility] 01-10-2018 01:01-0400 Respiratory Rate 14 /min [facility] 01-09-2018 19:10-0400 Body Temperature 97.39 [degF] Elijah [facility] 12-29-2017 15:14-0400 BMI (Body Mass Index) 19.79 kg/m2 Marj [facility] 12-29-2017 15:14-0400 Body Temperature 97 [degF] Mar[facility] 12-29-2017 15:14-0400 BP Diastolic 93 mm[Hg] Marj [facility] 12-29-2017 15:14-0400 BP Systolic 129 mm[Hg] Mar[facility] 12-29-2017 15:14-0400 Height 185.4 cm Marj [facility] 12-29-2017 15:14-0400 Pulse (Heart Rate) 92 /min Marj [facility] 12-29-2017 15:14-0400 Pulse Oximetry 97 % Mar[facility] 12-29-2017 15:14-0400 Respiratory Rate 16 /min Mar[facility] 12-29-2017 15:14-0400 Weight 68.04 kg Marj [facility] 12-15-2017 08:05-0400 Body Temperature 98.1 [degF] [facility] 08:05-0400 BP Diastolic 79 mm[Hg] [facility] 12-15-2017 08:05-0400 BP Systolic 152 mm[Hg] [facility] 12-15-2017 08:05-0400 Pulse (Heart Rate) 80 /min [facility] 12-15-2017 08:05-0400 Pulse Oximetry 94 % [facility] 12-15-2017 08:05-0400 Respiratory Rate 18 /min [facility] 12-14-2017 00:53-0400 BMI (Body Mass Index) 17.19 kg/m2 [facility] 12-14-2017 00:53-0400 Height 185.4 cm [facility] 12-14-2017 00:53-0400 Weight 59.1 kg [facility] 01-10-2017 15:49-0400 Body Temperature 97.9 [degF] Mekhi [facility] Work Phone: 01-10-2017 15:49-0400 BP Diastolic 86 mm[Hg] Mekhi [facility] Work Phone: 01-10-2017 15:49-0400 BP Systolic 150 mm[Hg] Mekhi [facility] Work Phone: 01-10-2017 15:49-0400 Pulse (Heart Rate) 71 /min Mekhi [facility] Work Phone: 01-10-2017 15:49-0400 Pulse Oximetry 95 % Mekhi [facility] Work Phone: 01-10-2017 15:49-0400 Respiratory Rate 12 /min Mekhi [facility] Work Phone: 01-10-2017 11:28-0400 BMI (Body Mass Index) 17.33 kg/m2 Mekhi [facility] Work Phone: 01-10-2017 11:28-0400 [facility] 01-09-2017 [phone] Height 188 cm Mekhi [facility] Work Phone: Encounters Encounter Date Encounter Type Care Provider Facility Start: 04-21-2025 ambulatory [facility] Facility:[facility] Start: 04-19-[address] [facility] Start: 04-18-2025 End: 04-18-2025 [facility] Start: 04-17-2025 End: 04-17-2025 [facility] Start: 04-14-2025 End: 04-14-2025 [facility] Start: 04-13-2025 End: 04-13-2025 Patient encounter procedure Jihan Rodriguez MD Work Phone: [facility] Start: 04-13-2025 End: 04-13-2025 ambulatory Jihan Rodriguez MD Work Phone: [facility] Comment on above: Prostate cancer (HCC ) (Primary Dx) Start: 04-12-2025 End: 04-12-2025 [facility] Start: 04-11-2025 End: 04-11-2025 [facility] Start: 04-10-2025 End: 04-10-2025 [facility] Start: 03-23-2025 End: 03-23-2025 ambulatory JIHAN RODRIGUEZ [facility] Start: 03-14-2025 End: 03-14-2025 Office outpatient visit 25 minutes Elijah Sanchez MD Work Phone: [facility] Comment on above: Prostate cancer (HCC ) (Primary Dx) Start: 03-14-2025 End: 03-14-2025 ambulatory [facility] Start: 03-03-2025 Non-patient / Non-visit Dr. Elijah martinez MD -[facility] Start: 03-03-2025 End: 03-03-2025 ambulatory Jihan Rodriguez MD Work Phone: [facility] Start: 03-03-2025 End: 03-03-2025 Patient encounter procedure Jihan Rodriguez MD Work Phone: [facility] Start: 03-03-2025 End: 03-03-2025 ambulatory [place] Facility[facility] Start: 02-28-2025 End: 02-28-2025 Orders Only Jerrica Arriola RN [facility] Comment on above: Prostate cancer (HCC ) (Primary Dx) Start: 02-27-2025 End: 02-27-2025 Patient encounter procedure Jihan Rodriguez MD Work Phone: [facility] Start: 02-27-2025 End: 03-30-2025 ambulatory Elijah Sanchez MD Work Phone: [facility] Comment on above: Prostate cancer (HCC ) (Primary Dx) Start: 02-14-2025 End: 02-14-2025 Telemedicine consultation with patient Elijah Sanchez MD Work Phone: [facility] Comment on above: Prostate cancer (HCC ) (Primary Dx) Start: 02-14-2025 End: 02-18-2025 ambulatory [facility] Start: 02-01-2025 End: 02-01-2025 Emergency department patient visit Iker Blackwell MD Work Phone: -Emergency Department Work Phone: Start: 02-01-2025 End: 02-01-2025 Patient encounter procedure Elijah Sanchez MD Work Phone: [facility] Comment on above: Elevated PSA (Primar y Dx) Start: 02-01-2025 End: 02-05-2025 ambulatory [facility] Start: 01-25-2025 ambulatory Iker Blackwell Facility:[facility] Start: 01-11-2025 End: 01-11-2025 Orders Only Elijah Sanchez MD Work Phone: [facility] Comment on above: Elevated PSA (Primar y Dx) Start: 01-06-2025 End: 03-08-2025 Follow-up encounter Jihan Wooten MD Work Phone: [facility] Comment on above: MR Prostate With And Without Contrast Start: 01-02-2025 End: 01-02-2025 ambulatory JIHAN WOOTEN [facility] Start: 11-25-2024 Non-patient / Non-visit Dr. Karla Lam MD -[facility] Start: 11-25-2024 End: 11-25-2024 Orders Only Jihan Wooten MD Work Phone: [facility] Comment on above: Elevated PSA (Primar y Dx) Start: 11-25-2024 End: 11-25-[address] Iker Blackwell MD -Cardiovascular Services Work Phone: Start: 11-25-2024 End: 11-25-2024 ambulatory Iker Blackwell Facility:[facility] Start: 11-23-2024 End: 11-23-2024 ambulatory Iker Blackwell MD Work Phone: [facility] Work Phone: Start: 11-23-2024 End: 11-23-2024 Patient encounter procedure Iker Blackwell MD Work Phone: -[facility] Work Phone: Start: 11-23-2024 End: 11-23-2024 ambulatory CHINMAY NEAL Facility:[facility] Start: 11-11-2024 End: 11-11-2024 Office outpatient visit 25 minutes Jihan Wooten MD Work Phone: [facility] Comment on above: Peyronie disease (Pr imary Dx); BPH with obstruction/lower urinary tract symptoms; Elevated PSA Start: 11-11-2024 End: 11-11-2024 ambulatory JIHAN WOOTEN [facility] Start: 10-28-2024 End: 10-28-2024 Office outpatient new 45 minutes Kvng Escoto PA-C Work Phone: [facility] Comment on above: Benign prostatic hyp erplasia, unspecified whether lower urinary tract symptoms present (Primary Dx); Peyronie disease; Elevated PSA; Bladder outlet obstruction Start: 10-28-2024 End: 10-28-2024 ambulatory KVNG ESCOTO [facility] Amb[facility] Start: 10-17-2024 End: 10-18-2024 Transcribe Orders Cait Vasquez MA [facility] Comment on above: Injury to penis (Amanda wally Dx) Start: 09-21-2024 End: 09-21-2024 ambulatory Iker Blackwell MD Work Phone: [facility] Work Phone: Start: 09-21-2024 End: 09-21-[address] Iker Blackwell MD -Ultrasound, [facility] Work Phone: Start: 09-21-2024 End: 09-21-2024 ambulatory Iker Blackwell Facility:[facility] Start: 08-18-2024 End: 08-18-2024 Emergency department patient visit Iker Blackwell MD Work Phone: -Emergency Department Work Phone: Start: 08-10-2024 ambulatory Eron Enrique Facility:[facility] Start: 08-10-2024 Non-patient / Non-visit Dr. Eron stevenson MD -[facility] Start: 08-10-2024 End: 08-10-2024 ambulatory Iker Blackwell MD Work Phone: [facility] Work Phone: Start: 08-10-2024 End: 08-10-[address] Iker Blackwell MD -Cardiovascular Services Work Phone: Start: 08-10-2024 End: 08-10-2024 ambulatory Iker Blackwell Facility:[facility] Start: 08-02-2024 End: 08-02-2024 Non-patient / Non-visit Dr. Jihan Daly MD -[facility] Work Phone: Start: 08-02-2024 End: 08-02-2024 ambulatory Iker Blackwell MD Work Phone: [facility] Work Phone: Start: 08-02-2024 End: 08-02-[address] Iker Blackwell MD -Pulmonary Services/Neurology Work Phone: Start: 08-02-2024 End: 08-02-2024 ambulatory [facility] Facility:[facility] Start: 07-21-2024 End: 07-21-[address] [facility] Work Phone: Start: 07-21-2024 End: 07-21-2024 ambulatory [facility] Facility:[facility] Start: 07-05-2024 End: 07-05-2024 Emergency department patient visit Dr. Dale VargasDalton DO -Emergency Department Work Phone: Start: 06-02-2024 Non-patient / Non-visit Dr. Soraya Womack MD -[facility] Start: 06-02-2024 End: 06-02-2024 Admission to same day surgery center Dr. Nabeel Womack MD -Endoscopy Work Phone: Start: 06-02-2024 End: 06-02-2024 ambulatory [facility] Facility:[facility] Start: 05-30-2024 End: 05-31-2024 Emergency department patient visit Dr. Alcides Hanks DO -Emergency Department Work Phone: Start: 05-23-2024 Non-patient / Non-visit Dr. Elijah engel DO -[facility] Work Phone: Start: 05-22-2024 Non-patient / Non-visit Dr. Elijah engel DO [facility] Work Phone: Start: 05-21-2024 Non-patient / Non-visit Dr. Elijah engel -[facility] Work Phone: Start: 05-20-2024 End: 05-23-2024 ambulatory Noelle Fleming Facility:[facility] Start: 05-20-2024 End: 05-23-2024 Evaluation and management of inpatient Dr. Elijah Guerrero DO -Medical Surgical 3 Work Phone: Start: 05-18-2024 Non-patient / Non-visit Dr. Elijah Eastman toro DO [facility] Work Phone: Start: 05-17-2024 End: 05-18-2024 ambulatory Nicolas Hall Facility:[facility] Start: 05-17-2024 End: 05-18-2024 Evaluation and management of inpatient Dr. Elijah Guerrero DO [facility] Work Phone: Start: 11-10-2023 Transcribe Orders Provider Not In System [facility] Comment on above: COPD [...] Dx) Start: 11-04-2023 ambulatory TERESA GAY Facility :[facility] Start: 11-03-2023 End: 11-03-2023 ambulatory Keyana Ibarra RN Primary Care - General Internal Medicine Outpatient [facility] Start: 11-03-2023 End: 11-03-2023 Patient encounter procedure Keyana Ibarra RN Primary Care - General Internal Medicine Outpatient [facility] Start: 10-31-2023 End: 11-01-2023 ambulatory IVONNE Boss [facility] Start: 10-29-2023 End: 10-31-2023 ambulatory KIRK RAGLAND Facility:[facility] Start: 10-29-2023 End: 10-31-2023 Evaluation and management of inpatient Reji Al MD Work Phone: [email or web address] Comment on above: Chronic obstructive pulmonary disease with acute exacerbation Start: 10-25-2023 End: 10-27-2023 ambulatory MATT IYER [facility] Start: 10-25-2023 End: 10-27-2023 Emergency department patient visit Alyce Cabral DO Work Phone: [facility] Medical Observation Start: 10-22-2023 End: 10-26-2023 Telephone encounter France Mckeon [facility] Scheduling Comment on above: Insurance Start: 10-19-2023 End: 10-19-2023 Telephone encounter Kiersten Cerna RN Primary Care - General Internal Medicine Outpatient Care [facility] Comment on above: Results Start: 10-12-2023 End: 10-12-2023 Subsequent hospital visit by physician Chuy Cheek [employer] WORKING SUPERVISOR-VOCATIONAL REHABILITATION SUPERVISOR Work Phone: Imaging Outpatient [facility] Comment on above: Arrived Start: 10-08-2023 End: 10-08-2023 Patient encounter status Ivonne Henry MD Work Phone: [facility] Start: 10-08-2023 End: 10-08-2023 Subsequent hospital visit by physician Ivonne Henry MD Work Phone: [facility] Comment on above: Arrived Start: 10-05-2023 End: 10-05-2023 Telephone encounter Latisha Buchanan RN Primary Care - General Internal Medicine Outpatient [facility] Comment on above: Results Start: 10-02-2023 End: 10-02-2023 Office outpatient new 30 minutes Ivonne Henry MD Work Phone: Primary Care - General Internal Medicine Outpatient [facility] Comment on above: Other emphysema (Amanda wally [...] encounter status Ivonne Henry MD Work Phone: [facility] Start: 08-19-2021 End: 08-21-2021 Emergency department patient visit Generic [facility] Work Phone: [facility] Oncology/Surgery Start: 08-15-2021 Orders Only Esha baig PA-C Work Phone: [facility] Comment on above: Chronic low back enedelia n with left-sided sciatica, unspecified back pain laterality (Primary Dx) Start: 08-05-2021 End: 08-05-2021 Office outpatient visit 15 minutes Elpidio Teran DO Work Phone: [facility] Comment on above: Chronic low back enedelia n with left-sided sciatica, unspecified back pain laterality (Primary Dx); Sciatica of left side Start: 06-25-2021 End: 06-25-2021 Office outpatient visit 15 minutes Karma Mark CNP Work Phone: [facility] Comment on above: Chronic low back enedelia n with left-sided sciatica, unspecified back pain laterality (Primary Dx); Impaired sensation to light touch; Left leg weakness; Asymmetrical deep tendon reflexes Start: 06-05-2021 Orders Only Michelle roberts VOCATIONAL REHABILITATION SUPERVISOR Work Phone: [facility] Start: 05-17-2021 Transcribe Orders Karma Mark CNP Work Phone: [facility] Comment on above: Chronic low back enedelia n with left-sided sciatica, unspecified back pain laterality (Primary Dx) Start: 05-07-2021 Orders Only Michelle roberts VOCATIONAL REHABILITATION SUPERVISOR Work Phone: [facility] Start: 03-15-2021 End: 03-15-2021 Postop follow up visit related to original px Teresa Terry MD Work Phone: [facility] Comment on above: History of total rig ht hip replacement (Primary Dx) Start: 02-15-2021 End: 02-15-2021 Postop follow up visit related to original px Teresa Terry MD Work Phone: [facility] Comment on above: History of total rig ht hip replacement (Primary Dx) Start: 02-08-2021 End: 02-08-2021 Postop follow up visit related to original px Jihan Orozco PA-C Work Phone: [facility] Comment on above: Status post right hi p replacement (Primary Dx) Start: 01-31-2021 End: 01-31-2021 Home visit Daniella Christianson RN [facility] Comment on above: SN HH NON ADMIT VISI T Start: 01-29-2021 ambulatory Tamera Rivera RN [facility] Start: 01-29-2021 Documentation procedure Tamera new RN [facility] Start: 01-29-2021 ambulatory TAMERA RIVERA [facility] Start: 01-28-2021 End: 01-28-2021 Anesthesia consultation Dioni Padron MD Work Phone: [facility] Per[facility] Start: 01-23-2021 Refill Teresa dennis MD Work Phone: [facility] Comment on above: Primary osteoarthrit is of right hip (Primary Dx) Start: 01-22-2021 End: 01-22-2021 Office outpatient visit 25 minutes Michelle Lindsey CNP Work Phone: [facility] Comment on above: Preop pulmonary/resp iratory exam (Primary Dx); Chronic obstructive pulmonary disease with acute exacerbation (HCC); Tobacco dependence; Homeless; Illiterate Start: 01-22-2021 End: 01-22-2021 Patient encounter status Michelle Lindsey CNP Work Phone: [facility] Start: 01-14-2021 End: 01-14-2021 Office consultation new/estab patient 60 min Teresa Terry MD Work Phone: [facility] Preadmission Testing Comment on [...] encounter status Teresa Terry MD Work Phone: [facility] Start: 01-14-2021 End: 01-14-2021 Preprocedural examination done Teresa Terry MD Work Phone: [facility]readmission Testing Start: 01-10-2021 End: 01-10-2021 ambulatory [facility] Start: 01-07-2021 End: 01-07-2021 Orders Only Jihan Orozco PA-C Work Phone: [facility] Comment on above: Primary osteoarthrit is of right hip (Primary Dx) Start: 12-25-2020 End: 12-25-2020 Admission to same day surgery center Teresa Terry MD Work Phone: [facility] Comment on above: Primary osteoarthrit is of right hip (Primary Dx); Exposure to SARS-associated coronavirus Start: 12-13-2020 End: 12-13-2020 Emergency department patient visit Ugo Ochoa MD Work Phone: [facility] Emergency Department Start: 10-03-2020 End: 10-03-2020 Emergency department patient visit John Montes DO Work Phone: [facility] Emergency Department Start: 09-21-2020 End: 09-21-2020 Emergency department patient visit Ugo Ochoa MD Work Phone: [facility] Emergency Department Start: 08-08-2020 End: 08-13-2020 Evaluation and management of inpatient Dani Ewing Work Phone: [facility] Cardiac/CVT Start: 08-08-2020 End: 08-08-2020 Orders Only Ariadne Oviedo Az Work Phone: [facility] Start: 07-26-2020 End: 07-26-2020 Emergency department patient visit Boogie Willettell Work Phone: [facility] Emergency Department Comment on above: Syncope, unspecified syncope type (Primary Dx) Start: 07-25-2020 End: 07-26-2020 Emergency department patient visit Flores Mayen Work Phone: [facility] Rapid Diagnosis Comment on above: Shortness of breath (Primary Dx); Acute exacerbation of chronic obstructive pulmonary disease (COPD) (HCC); Bilateral edema of lower extremity Start: 07-20-2020 End: 07-20-2020 Office outpatient new 30 minutes Max Wright Work Phone: [facility] Sports [facility] Primary Care Comment on above: Primary osteoarthrit is of right hip (Primary Dx) Start: 07-17-2020 End: 07-19-2020 Evaluation and management of inpatient Ophelia Rasheed Work Phone: [facility] Trauma Intermediate Care Unit Comment on above: COPD exacerbation (H CC) (Primary Dx); Dyspnea, unspecified type; Tobacco Abuse; Leukocytosis, unspecified type; Chronic obstructive pulmonary disease, unspecified COPD type (HCC); Chronic obstructive pulmonary disease with acute exacerbation (HCC); Globus sensation Start: 07-10-2020 End: 07-10-2020 Emergency department patient visit Ugo Ochoa Work Phone: [facility] Emergency Department Comment on above: Fall, initial encoun ter (Primary Dx); Chronic hip pain, unspecified laterality; Osteoarthritis, unspecified osteoarthritis type, unspecified site Start: 07-05-2020 End: 07-05-2020 Emergency department patient visit Angelika Rebolledo Work Phone: [facility] Emergency Department Comment on above: COPD exacerbation (H CC) (Primary Dx) Start: 06-21-2020 End: 06-21-2020 Documentation procedure Michelle Lindsey Work Phone: [facility] Start: 06-19-2020 End: 06-19-2020 Office consultation new/estab patient 80 min Karma Mark Work Phone: [facility] Preadmission Testing Comment on above: Preop examination [...] 06-15-2020 Orders Only Radrew Perla Work Phone: [facility] Comment on above: Hydrocele, unspecifi ed hydrocele type (Primary Dx); Epididymal cyst Start: 06-14-2020 End: 06-14-2020 Telemedicine consultation with patient Michelle Linsdey Work Phone: [facility] Comment on above: Chronic obstructive pulmonary disease, unspecified COPD type (HCC) (Primary Dx); Multifocal pneumonia; Tobacco use; History of drug use Start: 05-28-2020 End: 05-28-2020 Emergency department patient visit Heriberto Billings Work Phone: [facility] Emergency Department Comment on above: Acute exacerbation o f chronic obstructive pulmonary disease (COPD) (HCC) (Primary Dx); Tachycardia Start: 05-21-2020 End: 05-21-2020 Office outpatient visit 5 minutes Leonardo Perla Work Phone: [facility] Comment on above: Hydrocele, unspecifi ed hydrocele type (Primary Dx) Start: 04-13-2020 End: 04-21-2020 Evaluation and management of inpatient Carlynn Nayeli Fulp Work Phone: [facility] General Medicine Comment on above: [...] department patient visit Maxime Liz Work Phone: [facility] Rapid Diagnosis Comment on above: COPD exacerbation (H CC) (Primary Dx); Cough; SOB (shortness of breath); Bilateral hip pain Start: 03-19-2020 End: 03-19-2020 Subsequent hospital visit by physician García Gunn Work Phone: [facility] Diagnostics Comment on above: COPD with acute exac erbation (HCC) Start: 02-03-2020 End: 02-03-2020 Documentation procedure Leonardo Perla Work Phone: [facility] Start: 01-17-2020 End: 01-17-2020 Office outpatient new 30 minutes Leonardo Perla Work Phone: [facility] [place] Comment on above: Bilateral inguinal h ernia without obstruction or gangrene, recurrence not specified Start: 01-14-2020 End: 01-14-2020 Emergency department patient visit Teresa Anderson Work Phone: [facility] Emergency Department Comment on above: SOB (shortness of br eath) (Primary Dx); COPD exacerbation (HCC); Smoker Start: 01-02-2020 End: 01-02-2020 Office outpatient new 45 minutes Karma Mark Work Phone: [facility] Comment on above: Bilateral inguinal h ernia without obstruction or gangrene, recurrence not specified (Primary Dx); Epididymal cyst Start: 12-29-2019 End: 12-29-2019 Subsequent hospital visit by physician Karma Mark Work Phone: [facility] Comment on above: Trouble breathing; Chest pain, unspecified type Start: 12-13-2019 End: 12-13-2019 Admission to abdoul Gunn [facility] Start: 12-12-2019 End: 12-12-2019 Subsequent hospital visit by physician Teresa Merino Work Phone: [facility] Comment on above: Primary osteoarthrit is of right hip Start: 12-12-2019 End: 12-12-2019 Office outpatient new 30 minutes Teresa Merino Work Phone: [facility] Comment on above: Primary osteoarthrit is of right hip Start: 11-02-2019 End: 11-03-2019 Emergency department patient visit Angelika Oswald Work Phone: [facility] Diagnosis Comment on above: Chest pain, unspecif ied type (Primary Dx); Syncope and collapse Start: 11-02-2019 End: 11-02-2019 Subsequent hospital visit by physician Karma Mark Work Phone: [facility] Comment on above: Retention of urine, unspecified Start: 10-21-2019 End: 10-21-2019 Subsequent hospital visit by physician Karma Mark Work Phone: [facility] Comment on above: Testicle swelling Start: 08-17-2019 End: 08-17-2019 Subsequent hospital visit by physician García Gunn Work Phone: [facility] Comment on above: Chronic right hip pa in Start: 08-11-2019 End: 08-11-2019 Emergency department patient visit Maxime Liz Work Phone: [facility] Emergency Department Comment on above: Acute exacerbation o f chronic obstructive pulmonary disease (COPD) (HCC) (Primary Dx) Start: 08-04-2019 End: 08-04-2019 Subsequent hospital visit by physician García Gunn Work Phone: [facility] Comment on above: SOB (shortness of br eath) on exertion Start: 01-09-2018 End: 01-10-2018 Emergency department patient visit Elijah Max Reis Work Phone: [facility] Emergency Department Start: 12-29-2017 End: 12-29-2017 Office outpatient visit 40 minutes Marj Tejada Work Phone: [facility] Start: 12-21-2017 Patient encounter Violetta Knowles [facility] Out[facility] Start: 12-13-2017 End: 12-15-2017 Emergency department patient visit Lashawn Capone Work Phone: [facility] Rapid Diagnosis [place] Start: 01-09-2017 End: 01-10-2017 Emergency department patient visit Mekhi Lea Work Phone: [facility] Medical Observation Comment on above: Transient cerebral i schemia, unspecified type (Primary Dx) Procedures Date Procedure Procedure Detail Performing Clinician Start: 04-13-2025 RADIATION THERAPY - UNVERIFIED DATA IMPORTED FROM [employer] Treatment Results Radiation Oncology Start: 02-27-2025 PSA [...] #### [id number] #### [facility] [address] [address] Refugio Nunez M.D. [id number] Start: 02-01-2025 Estimated creatinine clearance Iker leal MD Work Phone: Start: 02-01-2025 Us guidance needle placement img s&i Elijah Sanchez MD Work Phone: Start: 11-23-2024 Free prostate specific antigen level Iker Blackwell MD Work Phone: Comment on above: Dimitris ECLIA methodology. Start: 11-23-2024 Prostate specific antigen measurement Iker Blackwell MD Work Phone: Comment on above: Dimitris ECLIA methodology.According to the [place] [employer], Serum PSAshould decrease and remain [...] by MOMO with probe detection Zoe Moreira [employer] Work Phone: Start: 08-19-2021 Radiologic exam chest single view Zoe Moreira [employer] Work Phone: Start: 08-19-2021 Gases blood ph direct margie xcpt pulse oximitry Paige Perla MD Work Phone: Start: 08-19-2021 End: 08-19-2021 Ecg routine ecg w/least 12 lds w/i&r Zoe Moreira [facility] Work Phone: Start: 08-19-2021 Basic metabolic [...] Start: 12-13-2020 Radiologic exam chest single view Ugo Ochoa MD Work Phone: Start: 12-13-2020 End: [...] Ecg routine ecg w/least 12 lds w/i&r Corn [employer] Generic Start: 08-13-2020 12 lead ECG [facility] Generic Start: 08-13-2020 Basic metabolic 2000 panel [...] Work Phone: Start: 08-09-2020 12 lead ECG [employer] Generic Start: 08-09-2020 End: 08-09-2020 Bacteria identified [...] Vishal Valentin Work Phone: Start: 08-09-2020 Urinalysis Vishla Valentin Work Phone: Start: 08-09-2020 Legionella antigen [...] Work Phone: Start: 07-26-2020 12 lead ECG [employer] Generic Start: 07-26-2020 Adult depression screening assessment Michelle Lindsey CNP Work Phone: Start: 07-25-2020 Drugs of abuse urine screening test Katina Yoder Bunny Work Phone: Start: 07-25-2020 Assay of lactate Flores Myaen Work Phone: Start: 07-25-2020 COVID-19/INFLUENZA A,B MOLECULAR [...] Work Phone: Start: 07-25-2020 12 lead ECG [employer] Generic Start: 07-18-2020 Electrocardiogram Provider Not In [...] Work Phone: Start: 07-17-2020 12 lead ECG [employer] Generic Start: 07-10-2020 Radiologic examination femur minimum [...] Work Phone: Start: 07-05-2020 12 lead ECG [employer] Generic Start: 06-19-2020 Basic metabolic 1999 panel [...] 2000 panel - Serum or Plasma Angelika Stringermizti Work Phone: Start: 04-17-2020 Complete blood count [...] Start: 04-14-2020 End: 04-14-2020 12 lead ECG [employer] Generic Start: 04-14-2020 Troponin measurement [place] [...] panel - Blood by Automated count Washington Garces Work Phone: Start: 04-13-2020 RAINBOW DRAW Armando [...] Work Phone: Start: 04-13-2020 12 lead ECG [employer] Generic Start: 04-13-2020 Radiologic exam chest single view Armando Leal Work Phone: Start: 04-13-2020 End: 04-13-2020 12 lead ECG Armando Leal Work Phone: Start: 04-13-2020 Blood gas analysis Armando Leal Work Phone: Start: 04-13-2020 End: 04-13-2020 Bacteria identified in Blood by Culture Armando Leal Work Phone: Start: 04-13-2020 OBTAIN VENOUS BLOOD GASES AND PERFORM Aramndo Leal Work Phone: Start: 04-13-2020 Basic metabolic [...] Phone: Start: 01-14-2020 MINT GREEN TOP Teresa Anderson Work Phone: Start: 01-14-2020 RAINBOW DRAW Teresa [...] Work Phone: Start: 08-11-2019 12 lead ECG [employer] Generic Start: 08-04-2019 Standard chest X-ray External Transcribe d Start: 01-10-2018 End: 01-10-2018 Electrocardiogram Provider Not In System Start: 12-14-2017 End: 12-14-2017 Electrocardiogram Provider Not In System Start: 01-10-2017 End: 01-10-2017 Echo tthrc r-t 2d w/wom-mode compl spec&colr d Ugo Jiang Plan of Treatment Date Care Activity Detail Author Start: 10-01-2028 Lipid panel LIPID SCREENING [facility] Start: 02-27-2027 Prostate specific antigen measurement PSA Level [facility] Start: 05-25-2025 End: 05-25-2025 ambulatory 05/25/2025 11:00 AM EST Rad[facility] [address] [place] [address] Jihan Rodriguez MD [facility] [place] [address] [facility] Start: 05-22-2025 End: 05-22-2025 ambulatory 05/22/2025 10:45 AM EST Rad[facility] [address] [place] [address] [facility] Start: 05-19-2025 End: 05-19-2025 ambulatory 05/19/2025 10:45 AM EST Radiation [facility] [address] [place] [address] [facility] Start: 05-18-2025 End: 05-18-2025 ambulatory [facility] Start: 05-17-2025 End: 05-17-2025 ambulatory 05/17/2025 10:45 AM EST [facility] [address] [place] [address] [facility] Start: 05-16-2025 End: 05-16-2025 ambulatory 05/16/2025 10:45 AM EST [facility] [address] [place] [address] [facility] Start: 05-15-2025 End: 05-15-2025 ambulatory 05/15/2025 10:45 AM EST [facility] [address] [place] [address] [facility] Start: 05-12-2025 End: 05-12-2025 ambulatory 05/12/2025 10:45 AM EST Rad[facility] [address] [place] [address] [facility] Start: 05-11-2025 End: 05-11-2025 ambulatory [facility] Start: 05-10-2025 End: 05-10-2025 ambulatory 05/10/2025 10:45 AM EST [facility] [address] [place] [address] [facility] Start: 05-09-2025 End: 05-09-2025 ambulatory 05/09/2025 10:45 AM EST [facility] [address] [place] [address] [facility] Start: 2025 Pneumococcal Vaccine: Ped or At-Risk (2 of 2 - PPSV23) Pneumococcal Vaccine: Ped or At-Risk (2 of 2 - PPSV23) [facility] Start: 2025 End: 2025 ambulatory 2025 10:45 AM EST [facility] [address] [place] [address] [facility] Start: 05-03-2025 End: 05-03-2025 ambulatory 05/03/2025 10:45 AM EST [facility] [address] [place] [address] [facility] Start: 05-02-2025 End: 05-02-2025 ambulatory 05/02/2025 10:45 AM EST [facility] [address] [place] [address] [facility] Start: 05-01-2025 End: 05-01-2025 ambulatory 05/01/2025 10:45 AM EST [facility] [address] [place] [address] [facility] Start: 04-28-2025 End: 04-28-2025 ambulatory 04/28/2025 10:45 AM EST [facility] [address] [place] [address] [facility] Start: 04-27-2025 End: 04-27-2025 ambulatory [facility] Start: 04-26-2025 End: 04-26-2025 ambulatory 04/26/2025 10:45 AM EST [facility] [address] [place] [address] [facility] Start: 04-25-2025 End: 04-25-2025 ambulatory 04/25/2025 10:45 AM EST [facility] [address] [place] [address] [facility] Start: 04-24-2025 End: 04-24-2025 ambulatory 04/24/2025 10:45 AM EST [facility] [address] [place] [address] [facility] Start: 04-21-2025 End: 04-21-2025 ambulatory 04/21/2025 10:45 AM EST [facility] [address] [place] [address] [facility] Start: 04-20-2025 End: 04-20-2025 ambulatory [facility] Start: 04-19-2025 End: 04-19-2025 ambulatory 04/19/2025 10:45 AM EST [facility] [address] [place] [address] [facility] Start: 04-18-2025 End: 04-18-2025 ambulatory 04/18/2025 10:45 AM EST [facility] [address] [place] [address] [facility] Start: 04-17-2025 End: 04-17-2025 ambulatory 04/17/2025 10:45 AM EST Rad[facility] [address] [place] [address] [facility] Start: 04-14-2025 End: 04-14-2025 ambulatory 04/14/2025 10:45 AM EST Rad[facility] [address] [place] [address] [facility] Start: 03-23-2025 End: 03-23-2025 Patient encounter procedure 03/23/2025 9:00 AM EDT Office Visit [facility] [address] [place] [address] Jihan Rodriguez MD [address] [place] [address] Lance Patterson MD [address] [address] [facility] Start: 03-16-2025 End: 03-16-2025 ambulatory [facility] Radiation Oncology Start: 03-14-2025 End: 03-14-2025 Patient encounter procedure 03/14/2025 1:45 PM EDT Office Visit [facility] [address] [facility] [address] [place] [address] Elijah Sanchez MD [address] [facility] [address] [place] [address] [facility] Start: 03-03-2025 End: 03-03-2025 ambulatory 03/03/2025 1:00 PM EDT Radiation Oncology [facility] Radiation Oncology [address] [place] [address] Jihan Rodriguez MD [address] [place] [address] [facility] Radiation Oncology Start: 02-14-2025 End: 02-14-2025 Telemedicine consultation with patient 02/14/2025 3:00 PM EDT Telemedicine Telephone [facility] [address] [facility] [address] [place] [address] Elijah Sanchez MD [address] [facility] [address] [place] [address] [facility] Start: 02-13-2025 End: 02-13-2025 Patient encounter procedure 02/13/2025 11:00 AM EDT Office Visit [facility] [address] [facility] [address] [place] [address] Kvng Escoto PA-C [address] [address] [facility] Start: 02-06-2025 COVID-19 Vaccine ( season) COVID-19 Vaccine ( season) [facility] Start: 02-06-2025 Influenza vaccination [facility] Start: 02-01-2025 [facility] Start: 02-01-2025 End: 02-01-2025 Patient encounter procedure 02/01/2025 11:00 AM EDT Procedure visit [facility] [address] [address] Elijah Sanchez MD [address] [address] [facility] Start: 12-02-2024 End: 11-25-2025 MR Prostate WO and W contrast IV MR Prostate With And Without Contrast Imaging Routine Elevated PSA Expected: 12/02/2024, Expires: 11/25/2025 [facility] Work Phone: Comment on above: Expected: 12/02/2024, Expires: Start: 11-23-2024 Assay of prostate specific antigen free ASSAY OF PSA FREE [facility] Start: 11-23-2024 Free prostate specific antigen level ASSAY OF PSA FREE [facility] Start: 11-11-2024 End: 11-11-2024 Patient encounter procedure 11/11/2024 10:30 AM EDT Office Visit [facility] [address] [facility] [address] [place] [phone] Jihan Wooten MD [address] [facility] [address] [place] [address] [facility] Start: 10-30-2024 Potassium [Moles/volume] in Serum or Plasma POTASSIUM [facility] Start: 10-28-2024 End: 10-28-2024 Patient encounter procedure 10/28/2024 9:40 AM EDT Office Visit [facility] [address] [facility] [address] [place] [address] Kvng Escoto PA-C [address] [address] [facility] Start: 10-01-2024 Potassium [Moles/volume] in Serum or Plasma POTASSIUM [facility] Start: 10-01-2024 Prostate specific antigen measurement PROSTATE CANCER SCREENING DISCUSSION [facility] Start: 08-18-2024 [facility] Start: 07-05-2024 [facility] Start: 06-02-2024 Egd flexible foreign body removal EGD REMOVE FOREIGN BODY [facility] Start: 06-02-2024 Patient discharge [facility] Start: 05-31-2024 [facility] Start: 05-30-2024 End: 05-30-2024 [facility] Start: 05-23-2024 Patient discharge [facility] Start: 05-22-2024 Inhalation therapy procedure [facility] Start: 05-20-2024 Following clinical pathway protocol [facility] Start: 05-20-2024 Assessment of risk of venous thromboembolism [facility] Start: 05-20-2024 Insertion of catheter into peripheral vein [facility] Start: 05-20-2024 Introduction of urinary catheter [facility] Start: 05-20-2024 Measuring intake and output [facility] Start: 05-20-2024 Oxygen therapy [facility] Start: 05-20-2024 Providing care according to standard [facility] Start: 05-20-2024 Provision of activity privileges [facility] Start: 05-20-2024 Referral to service [facility] Start: 05-20-2024 Tobacco use cessation education [facility] Start: 05-20-2024 [facility] Start: 05-20-2024 Admission procedure [facility] Start: 05-18-2024 Patient discharge [facility] Start: 05-18-2024 Consultation [facility] Start: 05-17-2024 End: 05-17-2024 [facility] Start: 05-17-2024 Following clinical pathway protocol [facility] Start: 05-17-2024 Ambulation without limitation [facility] Start: 05-17-2024 Assessment of risk of venous thromboembolism [facility] Start: 05-17-2024 Inhalation therapy procedure [facility] Start: 05-17-2024 Insertion of catheter into peripheral vein [facility] Start: 05-17-2024 Oxygen therapy [facility] Start: 05-17-2024 Providing care according to standard [facility] Start: 05-17-2024 Referral to service [facility] Start: 05-17-2024 Admission procedure [facility] Start: 02-07-2024 COVID-19 Vaccine ( season) COVID-19 Vaccine ( season) [facility] Start: 02-07-2024 Influenza vaccination INFLUENZA VACCINE (Season Ended) [facility] Start: 02-02-2024 End: 02-02-2024 Patient encounter procedure 02/02/2024 1:40 PM EDT Office Visit Primary Care - General Internal Medicine Outpatient Care [facility] [address] [facility] [address] [place] [address] Ivonne Henry MD [address] [facility] [address] [place] [address] Primary Care - General Internal Medicine Outpatient Care [facility] Start: 01-05-2024 End: 01-05-2024 Patient encounter procedure 01/05/2024 11:20 AM EDT Office Visit Primary Care - General Internal Medicine Outpatient Care [facility] [address] [phone] Ivonne Henry MD [address] [phone] Primary Care - General Internal Medicine Outpatient Care [facility] Start: 11-16-2023 End: 10-04-2024 PSA screening PSA, SCREENING Lab Routine Elevated PSA Expected: 11/16/2023, Expires: 10/04/2024 [facility] Comment on above: Expected: 11/16/2023, Expires: Start: 10-30-2023 End: 10-30-2023 Patient encounter procedure 10/30/2023 2:30 PM EDT Office Visit Spine Care Outpatient [facility] [address] [place] [address] Phil Mckeon MD [address] [phone] Spine Care Outpatient [facility] Start: 10-12-2023 End: 10-12-2023 Patient encounter procedure [facility] Start: 10-06-2023 End: 10-06-2023 Patient encounter procedure 10/06/2023 2:30 PM EDT Appointment Lung Care Outpatient Care [facility] [address] [facility] [address] [place] [phone] Ivonne Henry MD [address] [phone] Lung Care Outpatient [facility] Start: 10-05-2023 End: 10-04-2024 H. PYLORI WITH CLARITHROMYCIN RESISTANCE PREDICTION, PCR H. PYLORI WITH CLARITHROMYCIN RESISTANCE PREDICTION, PCR Fluids Routine PUD (peptic ulcer disease) Expected: 10/05/2023, Expires: 10/04/2024 [facility] Comment on above: Expected: 10/05/2023, Expires: 5 Start: 10-02-2023 End: 10-01-2024 Measurement of respiratory function PFT STANDARD PFT Routine Other emphysema Health care maintenance Expected: 10/02/2023, Expires: 10/01/2024 [facility] Comment on above: Expected: 10/02/2023, Expires: Start: 02-06-2023 COVID-19 VACCINE () COVID-19 VACCINE () [facility] Start: 02-06-2023 COVID-19 Vaccine () COVID-19 Vaccine () [facility] Start: 09-05-2021 End: 09-05-2021 Patient encounter procedure 09/05/2021 Office Visit Pain Medicine Esha [facility] PA-C [address] [place] [address] Tray Pitt MD [address] [place] [address] [place] [address] [facility] Start: 07-26-2021 Depression screening using PHQ-9 (Patient Health Questionnaire 9) score [facility] Start: 06-25-2021 End: 06-25-2021 Patient encounter procedure 06/25/2021 Office Visit Orthopedic Surgery Karma Mark, [employer] SUPER[employer]OR [address] [place] [address] Elpidio Teran, [address] [place] [address] [facility] Start: 06-09-2021 COVID-19 Vaccine (3 - Booster for Pfizer series) COVID-19 Vaccine (3 - Booster for Pfizer series) [facility] Start: 05-09-2021 COVID-19 Vaccine (3 - Booster for Pfizer series) COVID-19 Vaccine (3 - Booster for Pfizer series) [facility] Start: 04-13-2021 Screening for malignant neoplasm of lung Low-dose CT Lung Cancer Screen [facility] Start: 03-15-2021 End: 03-15-2021 Patient encounter procedure 03/15/2021 Office Visit Orthopedic Surgery Teresa Terry MD [address] [place] [address] [facility] Start: 02-15-2021 End: 02-15-2021 Patient encounter procedure [facility] Start: 02-06-2021 Influenza vaccination Sequential Influenza Vaccine (#1) [facility] Start: 01-28-2021 End: 01-28-2021 Anesthesia consultation 01/28/2021 Anesthesia Event George Fam II [facility] Start: 01-28-2021 End: 01-28-2021 ARTHROPLASTY HIP ARTHROPLASTY HIP Primary osteoarthritis of right hip 01/28/2021 12:15 PM EDT [facility] Start: 01-28-2021 End: 01-28-2021 Admission to same day surgery center [facility] Comment on above: RIGHT TOTAL HIP ARTHROPLASTY Start: 01-28-2021 Subsequent hospital visit by physician [facility] Start: 01-24-2021 End: 01-24-2021 Patient encounter procedure 01/24/2021 Office Visit Lab Jihan Orozco PA-C [address] [place] [address] [phone] [facility] Start: 01-14-2021 End: 01-14-2021 Patient encounter procedure 01/14/2021 Office Visit Pre-Admission Testing Teresa Terry MD [address] [place] [address] [phone] [facility] Preadmission Testing Start: 11-01-2020 Depression screening using PHQ-9 (Patient Health Questionnaire 9) score Depression Screening (PHQ9) [facility] Start: 10-23-2020 COVID-19 Vaccine (2 - Pfizer 2-dose series) COVID-19 Vaccine (2 - Pfizer 2-dose series) [facility] Start: 10-23-2020 End: 10-23-2020 Appointment [facility] Start: 10-22-2020 End: 10-22-2020 Patient encounter procedure [facility] Start: 08-17-2020 Pneumococcal Vaccine: 50+ Years (2 of 2 - PCV) Pneumococcal Vaccine: 50+ Years (2 of 2 - PCV) [facility] Start: 08-17-2020 Pneumococcal Vaccine: Age 50+ (2 of 2 - PCV) Pneumococcal Vaccine: Age 50+ (2 of 2 - PCV) [facility] Start: 08-17-2020 Pneumococcal Vaccine: Ped or At-Risk (2 of 2 - PCV) Pneumococcal Vaccine: Ped or At-Risk (2 of 2 - PCV) [facility] Start: 07-20-2020 End: 07-20-2020 Office Visit 07/20/2020 Office Visit Sports Medicine Max Wright IV, MD [address] [facility] [address] [place] [address] [phone] [facility] Start: 07-10-2020 End: 07-10-2020 Hospital Encounter [facility] Comment on above: Hydrocele HYDROCELECTOMY Start: 06-26-2020 End: 06-26-2020 Hospital Encounter [facility] Comment on above: Hydrocele HYDROCELECTOMY Start: 06-26-2020 End: 06-26-2020 Hospital Encounter [facility] Comment on above: Hydrocele HYDROCELECTOMY Start: 06-25-2020 End: 06-25-2020 Appointment [facility] Start: 06-22-2020 End: 06-22-2020 Office Visit 06/22/2020 Office Visit Lab Leonardo Perla MD [address] [facility] [address] [place] [address] [phone] [facility] Start: 06-19-2020 End: 06-19-2020 Office Visit 06/19/2020 Office Visit Pre-Admission Testing Karma Mark, V[employer] REHABILITATION SUPERVISOR [address] [place] [address] [phone] [facility] Preadmission Testing Start: 06-14-2020 End: 06-14-2020 Telemedicine 06/14/2020 Telemedicine Pulmonology Michelle Lindsey, V[employer]ATIONAL REHABILITATION SUPERVISOR [address] [facility] [address] [place] [address] [phone] [facility] Start: 05-15-2020 End: 05-15-2020 Hospital Encounter [facility] Comment on above: Epididymal cyst BILATERAL SPERMATOCE LECTOMY *CHECK MAP* Start: 05-11-2020 End: 05-11-2020 Office Visit 05/11/2020 Office Visit Lab Leonardo Perla MD [address] [place] [address] [place] [address] [phone] [facility] Start: 2020 Respiratory Syncytial Virus Immunization: Risk, 60-74 Risk, or 75+ (1 - Risk 60-74 years 1-dose series) Respiratory Syncytial Virus Immunization: Risk, 60-74 Risk, or 75+ (1 - Risk 60-74 years 1-dose series) [facility] Start: 04-20-2020 End: 04-20-2020 Hospital Encounter [facility] Comment on above: Epididymal cyst RIGHT EPIDIDYMAL CYS T EXCISION POSSIBLE EPIDYMECTOMY (REMOVAL OF EPIDIDYMIS) *CHECK MAP* Start: 04-16-2020 End: 04-16-2020 Office Visit 04/16/2020 Office Visit Lab Leonardo Perla MD [address] [place] [address] [phone] [facility] Start: 02-07-2020 Influenza vaccination Sequential Influenza Vaccine (#1) [facility] Start: 02-07-2020 Influenza vaccination given Sequential Influenza Vaccine (#1) [facility] Start: 01-17-2020 End: 01-17-2020 Office Visit 01/17/2020 Office Visit General Surgery [facility] Start: 01-02-2020 End: 01-02-2020 Office Visit [facility] Start: 11-23-2019 End: 11-23-2019 Office Visit 11/23/2019 Office Visit Orthopedic Surgery Karma Mark, V[employer]ITATION SUPER[employer]OR [address] [place] [address] [phone] Teresa Merino III, MD [address] [place] [address] [phone] [facility] Start: 06-08-2019 Tetanus vaccination TETANUS [facility] Start: 02-06-2019 Influenza vaccination given SEQUENTIAL INFLUENZA VACCINE (#1) [facility] Start: 09-23-2018 Screening for malignant neoplasm of colon COLORECTAL CANCER SCREENING DISCUSSION [facility] Start: 06-16-2018 End: 12-14-[address] Angiogram Chest Routine Thoracic aortic aneurysm without rupture (HCC) Expected: 06/16/2018 (Approximate), Expires: 12/14/2018 [facility] Start: 02-06-2018 Influenza vaccination SEQUENTIAL INFLUENZA VACCINE (#1) [facility] Start: 02-05-2018 End: 02-05-2018 Ambulatory 02/05/2018 Office Visit Primary Care Jacob Rivas DO [address] [place] [address] [phone] [facility] Start: 01-27-2018 End: 01-27-2018 Ambulatory 01/27/2018 Office Visit Neurosurgery Shannan Combs, VOCATIONAL REHABILITATION SUPERVISOR [address] [facility] [address] [place] [address] [phone] [facility] Start: 01-19-2018 End: 01-19-2018 Ambulatory 01/19/2018 Office Visit Transition [facility] Care [facility] Start: 12-29-2017 End: 12-29-2017 Ambulatory 12/29/2017 Office Visit [facility] Start: 02-06-2017 SEQUENTIAL INFLUENZA VACCINE (#1) SEQUENTIAL INFLUENZA VACCINE (#1) [facility] Work Phone: Start: 2010 Administration of herpes zoster vaccine Zoster Vaccines (1 of 2) [facility] Start: 2010 RSV Vaccines (1 - Risk 50-74 years 1-dose series) RSV Vaccines (1 - Risk 50-74 years 1-dose series) [facility] Start: 2010 Screening for malignant neoplasm of colon [facility] Start: 2010 Zoster vaccine hzv live for subcutaneous use ZOSTER (SHINGLES) VACCINE (1 of 2) [facility] Start: 1979 Vaccination for diphtheria, pertussis, and tetanus Tetanus/Diphtheria/Pert ussis (1 - Tdap) [facility] Start: 1978 Hepatitis C antibody, confirmatory test Hepatitis C Screening [facility] Start: 1978 Hepatitis C screening Hepatitis C Screening [facility] Start: 1976 COVID-19 Vaccine (1 of 2) COVID-19 Vaccine (1 of 2) [facility] Start: 1976 COVID-19 Vaccine (1) COVID-19 Vaccine (1) [facility] Start: 1975 HIV screening HIV Screening [facility] Start: 1972 Adolescent depression screening assessment Depression Screening (PHQ9) [facility] Start: 1972 Depression screening using PHQ-9 (Patient Health Questionnaire 9) score [facility] Start: 1966 PNEUMOCOCCAL VACCINE SERIES (1 of 2 - PCV) PNEUMOCOCCAL VACCINE SERIES (1 of 2 - PCV) [facility] Start: 1966 Pneumococcal Vaccine: Ped or At-Risk (1 of 2 - PPSV23) Pneumococcal Vaccine: Ped or At-Risk (1 of 2 - PPSV23) [facility] Start: 1963 History and physical examination, annual for health maintenance Wellness Visit [facility] Start: 1963 PREVENTATIVE HEALTH VISIT PREVENTATIVE HEALTH VISIT [facility] Start: 1961 Zkwxoxo-djrsl-[id number] vaccination MMR Vaccines (1 of 1 - Standard series) [facility] Start: 1960 Colonoscopy COLONOSCOPY [facility] Work Phone: Start: 1960 Depression screening using PHQ-9 (Patient Health Questionnaire 9) score Depression Screening (PHQ9) [facility] Start: 1960 Hepatitis C antibody, confirmatory test HEPATITIS C SCREENING [facility] Start: 1960 HEPATITIS C SCREENING HEPATITIS C SCREENING [facility] Work Phone: Start: 1960 Prostate specific antigen measurement PSA Level [facility] Start: 1960 Screening colonoscopy COLONOSCOPY [facility] Start: 1960 Screening for malignant neoplasm of colon [facility] Start: 1960 TETANUS EVERY 10 YR TETANUS EVERY 10 YR [facility] Work Phone: Start: 1960 Tetanus vaccination [facility] 12 lead ECG EKG 12-lead ECG STAT 12/13/2020 12:55 PM EDT [facility] End: 04-14-2020 Bacteria identified Aer cx Nom (Sput) Sputum Aerobic Culture Microbiology Routine Once for 1 Occurrences starting 04/14/2020 until 04/14/2020 [facility] Comment on above: Once for 1 Occurrences starting 04/14/20 20 until 04/14/2020 End: 07-17-2020 Bacteria identified Aer cx Nom (Sput) Sputum Aerobic Culture Microbiology Routine Once for 1 Occurrences starting 07/17/2020 until 07/17/2020 [facility] Comment on above: Once for 1 Occurrences starting 07/17/19 21 until 07/17/2020 Bacteria identified Cx Nom (Bld) [facility] End: 05-21-2021 Basic metabolic 2000 panel Basic metabolic panel Lab Routine Hydrocele, unspecified hydrocele type 1 Occurrences starting 05/21/2020 until 05/21/2021 [facility] Comment on above: 1 Occurrences starting 05/21/2020 until 05/21/2021 Basic metabolic 2000 panel Basic metabolic panel Lab Routine Hydrocele, unspecified hydrocele type 06/19/2020 11:32 AM EST [facility] End: 05-21-2021 Complete blood count (hemogram) panel - Blood by Automated count CBC Lab Routine Hydrocele, unspecified hydrocele type 1 Occurrences starting 05/21/2020 until 05/21/2021 [facility] Comment on above: 1 Occurrences starting 05/21/2020 until 05/21/2021 Complete blood count (hemogram) panel - Blood by Automated count CBC Lab Routine Hydrocele, unspecified hydrocele type 06/19/2020 11:32 AM EST [facility] End: 06-15-2021 Complete PFT with Pre and Post Bronchodilator Complete PFT with Pre and Post Bronchodilator PFT Routine Chronic obstructive pulmonary disease, unspecified COPD type (HCC) Tobacco use 1 Occurrences starting 06/15/2020 until 06/15/2021 [facility] Comment on above: 1 Occurrences starting 06/15/2020 until 06/15/2021 End: 06-15-2021 Covid-19/Influenza Order Algorithm : COVID-19 Lab Test Only (OP in UTM) Covid-19/Influenza Order Algorithm : COVID-19 Lab Test Only (OP in UTM) Microbiology Routine Epididymal cyst 1 Occurrences starting 06/15/2020 until 06/15/2021 [facility] Comment on above: 1 Occurrences starting 06/15/2020 until 06/15/2021 CT angiography of pulmonary artery CT Pulmonary Arteries Imaging [facility] 09/21/2020 2:15 PM EDT [facility] End: 10-12-2023 CT of chest [facility] Work Phone: Comment on above: 1 Occurrences starting 10/12/2023 until 10/12/2023 End: 06-15-2021 CT of chest without contrast CT Chest Without Contrast Imaging Routine Chronic obstructive pulmonary disease, unspecified COPD type (HCC) Multifocal pneumonia Tobacco use History of drug use 1 Occurrences starting 06/15/2020 until 06/15/2021 [facility] Comment on above: 1 Occurrences starting 06/15/2020 until 06/15/2021 End: 05-21-2021 INR Coag (PPP) [Relative time] PT/INR Lab Routine Hydrocele, unspecified hydrocele type 1 Occurrences starting 05/21/2020 until 05/21/2021 [facility] Comment on above: 1 Occurrences starting 05/21/2020 until 05/21/2021 INR Coag (PPP) [Rela tive time] PT/INR Lab Routine Hydrocele, unspecified hydrocele type 06/19/2020 11:32 AM EST [facility] Measurement of respi ratory function PFT STANDARD PFT Routine Other emphysema Health care maintenance 10/08/2023 8:57 AM EDT [facility] MR Brain Without Contrast MR Bra in Without Contrast STAT 12/15/2017 8:40 AM EDT [facility] End: 06-26-2022 MRI of lumbar spine without contrast MR Lumbar Spine Without Contrast Imaging Routine Chronic low back pain with left-sided sciatica, unspecified back pain laterality Impaired sensation to light touch Left leg weakness Asymmetrical deep tendon reflexes 1 Occurrences starting 06/25/2021 until 06/26/2022 [facility] Work Phone: Comment on above: 1 Occurrences starting 06/25/2021 until 06/26/2022 Patient Education [facility] Work Phone: Patient referral [facility] Work Phone: Procedure on tissue specimen Tissue Exam Pathology and Cytology Routine Elevated PSA Ordered: 02/01/2025 [facility] Work Phone: Comment on above: Ordered: 02/01/2025 End: 08-27-2026 Prostate specific Ag [Mass/volume] in Serum or Plasma [facility] Work Phone: Comment on above: 6 Occurrences starting 02/27/2025 until 08/27/2026 6 Occurrences starti ng 02/27/2025 until 08/27/2026, 1 completed Prostate specific Ag [Mass/volume] in Serum or Plasma PSA Monitor Lab Routine Prostate cancer (HCC) 02/27/2025 2:57 PM EDT [facility] End: 11-01-2025 Prostate specific Ag panel - Serum or Plasma PSA, Total and Free Lab Routine Elevated PSA 1 Occurrences starting 11/01/2024 until 11/01/2025 [facility] Work Phone: Comment on above: 1 Occurrences starting 11/01/2024 until 11/01/2025 [facility] End: 12-25-2021 SARS-CoV-2 (COVID-19) RdRp gene [Presence] in Respiratory specimen by MOMO with probe detection COVID-19, Molecular Microbiology Routine Exposure to SARS-associated coronavirus 1 Occurrences starting 12/25/2020 until 12/25/2021 [facility] Comment on above: 1 Occurrences starting 12/25/2020 until 12/25/2021 End: 10-29-2023 Standard ECG [facility] Work Phone: Comment on above: One Time for 1 Occurrences starting 10/07 until 10/29/2023 Ultrasound Duplex Ve nous Legs BILATERAL Ultrasound Duplex Venous Legs BILATERAL [facility] 01/09/2018 9:24 PM EDT [facility] XR Hip Right 2-3 Vie ws (Routine) XR Hip Right 2-3 Views (Routine) Imaging Routine Chronic right hip pain 08/17/2019 12:54 PM EDT [facility] End: 12-29-2018 XR Hips Bilateral With Pelvis 3-4 Views XR Hips Bilateral With Pelvis 3-4 Views Routine Bilateral hip pain 1 Occurrences starting 12/29/2017 until 12/29/2018 [facility] XR Lumbar Spine 2-3 Views (Standard) XR Lumbar Spine 2-3 Views (Standard) Imaging [facility] 10/03/2020 10:04 PM EDT [facility] Immunizations Immunization Date Immunization Notes Care Provider [facility] 05-18-2024 influenza, seasonal, injectable, preservative free Iker Blackwell MD Work Phone: [facility] 05-18-2024 influenza virus vaccine, unspecified formulation Elijah Sanchez MD Work Phone: [facility] 12-07-2020 Pfizer SARS-CoV-2 Vaccination Michelle Duffyterrell FRITZ Work Phone: [facility] 05-25-2019 influenza, injectabl e, quadrivalent, preservative free Latisha Buchanan RN [facility] 05-25-2019 influenza virus vaccine, unspecified formulation Latisha Buchanan RN [facility] Payers Date Payer Category Payer Unknown [id number] 2024 Self-pay 2023 [facility] [place] [id number] 2019 Medicaid 2019 Medicaid [facility] MEDICAID COMMUNITY PLAN xxxxxxxxx 2019-Present xxxxxxxxx [id number] 2019 Medicaid [id number] 2017 Medicaid [id number] 2017 Unknown 2017 Unknown [id number] 1960 Unknown [id number] 2.16.840.1.325384.3.579.2. 594 1960 Unknown [id number] 2.16.840.1.774403.3.579.2. 594 1960 Unknown [id number] 2.16.840.1.424475.3.579.2. 903 1960 Unknown [id number] 2.16.840.1.026984.3.579.2. 900 1960 Unknown [id number] 2.16.840.1.606859.3.579.2. 903 1960 Unknown [id number] 2.16.840.1.453440.3.579.2. 903 1960 Unknown [id number] 2.16.840.1.850461.3.579.2. 903 1960 Unknown [id number] 2.16.840.1.882392.3.579.2. 903 1960 Unknown [id number] 2.16.840.1.105702.3.579.2. 903 1960 Unknown [id number] 2.16.840.1.846279.3.579.2. 903 1960 Unknown [id number] 2.16.840.1.360653.3.579.2. 903 1960 Unknown [id number] 2.16.840.1.629331.3.579.2. 902 1960 Unknown [id number] 2.16.840.1.609543.3.579.2. 903 1960 Unknown [id number] 2.16.840.1.426544.3.579.2. 903 1960 Unknown [id number] 2.16.840.1.976928.3.579.2. 903 1960 Unknown [id number] 2.16.840.1.404474.3.579.2. 903 1960 Unknown [id number] 2.16.840.1.445910.3.579.2. 903 1960 Unknown [id number] 2.16.840.1.284148.3.579.2. 903 1960 Unknown [id number] 2.16.840.1.133704.3.579.2. 903 1960 Unknown [id number] 2.16.840.1.154701.3.579.2. 903 1960 Unknown [id number] 2.16.840.1.307331.3.579.2. 903 1960 Unknown [id number] 2.16.840.1.185054.3.579.2. 903 1960 Unknown [id number] 2.16.840.1.076065.3.579.2. 903 1960 Unknown [id number] 2.16.840.1.056549.3.579.2. 903 Unknown [id number] 2.16.840.1.862174.3.579.2. 462 Unknown [id number] 2.16.840.1.961332.3.579.2. 462 Unknown [id number] 2.16.840.1.106795.3.579.2. 462 Unknown [id number] 2.16.840.1.669635.3.579.2. 462 Unknown [id number] 2.16.840.1.889387.3.579.2. 462 Unknown [id number] 2.16.840.1.925915.3.579.2. 462 Unknown [id number] 2.16.840.1.827639.3.579.2. 462 Unknown [id number] 2.16.840.1.824518.3.579.2. 462 Unknown [id number] 2.16.840.1.513816.3.579.2. 462 Unknown [id number] 2.16.840.1.020073.3.579.2. 462 Unknown [id number] 2.16.840.1.654416.3.579.2. 462 Unknown [id number] 2.16.840.1.678024.3.579.2. 462 Unknown [id number] 2.16.840.1.993784.3.579.2. 462 Unknown [id number] 2.16.840.1.998277.3.579.2. 462 Unknown [id number] 2.16.840.1.396891.3.579.2. 462 Unknown [id number] 2.840.1.540594.3.579.2. 462 Unknown [id number] 2.16840.1.369773.3.579.2. 462 Unknown [id number] 2.840.1.905403.3.579.2. 462 Unknown [id number] 2.16840.1.533998.3.579.2. 462 Unknown [id number] 2.16840.1.404893.3.579.2. 462 Unknown [id number] 2.16.840.1.035842.3.579.2. 462 Unknown [id number] 2.16.840.1.323341.3.579.2. 462 Unknown [id number] 2.16.840.1.821656.3.579.2. 462 Unknown [id number] 2.16.840.1.380408.3.579.2. 462 Unknown [id number] 2.16.840.1.594540.3.579.2. 462 Unknown [id number] 2.16.840.1.759590.3.579.2. 462 Unknown [id number] 2.16.840.1.796232.3.579.2. 462 Social History Date Type Detail Facility Start: 01-19-1969 End: 10-28-2024 Tobacco smoking status NHIS Current every day smoker [facility] Start: 01-19-1969 History of tobacco use Cigarette Smoker [facility] Work Phone: Start: 12-13-2017 End: 10-31-2023 Cigarettes smoked current (pack per day) - Reported [facility] Start: 1960 Sex Assigned At Not on file [facility] Work Phone: Start: 06-22-2018 End: 01-02-2020 Alcohol intake Current non-drinker of alcohol (finding) [facility] Start: 01-09-2017 Alcohol Comment occ [facility] Start: 07-23-2021 End: 08-19-2021 Exposure to SARS-CoV-2 (event) Not sure [facility] Start: 01-17-2020 End: 10-28-2024 Tobacco use and exposure Never used [facility] Start: 03-02-2020 End: 03-23-2025 Alcohol intake Ex-drinker (finding) [facility] Exposure to SARS-CoV -2 (event) Yes [facility] Start: 06-14-2020 Tobacco Comment Trying to cut back, but [place] was stressful and money problems [facility] Exposure to SARS-CoV -2 (event) Unable to assess [facility] Start: 06-19-2020 Tobacco Comment Trying to cut back, 8 cigs per day [facility] Start: 06-19-2020 Alcohol Comment 1 beer per month [facility] Start: 08-08-2020 End: 08-09-2020 Tobacco smoking status NHIS Former smoker [facility] Start: 06-19-2020 Alcohol Comment 1 beer per month [facility] Start: 06-25-2021 End: 10-28-2024 Tobacco Comment Trying to cut back, 6 cigs per day [facility] Start: 10-05-2023 Alcoholic beverage intake Current drinker of alcohol (finding) [facility] Start: 05-24-2019 End: 10-31-2023 Alcohol Use Disorder Identification Test - Consumption [AUDIT-C] [facility] Frequency of Alcohol Consumption Not on file [facility] Start: 09-23-2017 End: 10-29-2023 Tobacco Comment 50+ pack year history [facility] Start: 09-23-2017 Gender identity Identifies as male gender (finding) [facility] Has the electric, ga s, oil, or water company threatened to shut off services in your home in past 12Mo No [facility] (I/We) worried wheth er (my/our) food would run out before (I/we) got money to buy more. Never true [facility] Start: 12-13-2017 Sexual orientation Heterosexual (finding) [facility] How hard is it for y ou to pay for the very basics like food, housing, medical care, and heating Somewhat hard [facility] (I/We) worried wheth er (my/our) food would run out before (I/we) got money to buy more. Sometimes true [facility] Start: 07-05-2024 End: 02-01-2025 Tobacco smoking status NHIS Current some day smoker [facility] Start: 08-14-2024 End: 09-26-2024 Sex Male (finding) [facility] Start: 1960 Sex Assigned At Male [facility] Medical Equipment Procedure Code Equipment Code Equipment Origin al Text Equipment Identifier Dates Shell 54mm Sz F 4hl Acet Limited Hole Por Osseoti G7 - [id number]_[facility] Start: 01-28-2021 Screw 6.5 X 30mm Acet Dome Low Profile G7 - [id number], 14_[facility] FDA Start: 01-28-2021 Vivacit-E Vitami n E Highly Crosslinked Polytheylene Liner Neutral 40mm/F [id number] Start: 01-28-2021 Stem 14mm Ext Pr imary Tm - [id number]/$ [id number], 36_[id number] FDA Start: 01-28-2021 Head 40mm -3.5 F em Biol[employer] Delta [employer] - [id number]/$ $[id number], 37_imp FDA Start: 01-28-2021 Goals Date Patient Goal Desired Activity /State Functional Status Date Assessment Result Facility 05-23-2024 Functional status Activity Abili ty Unable to Assess [facility] Work Phone: 05-22-2024 Functional status [place] [facility] Work Phone: 05-18-2024 Functional status Ambulates [facility] Work Phone: Mental Status Date Assessment Result Facility 06-02-2024 Cognitive function Level Of Cons ciousness Appropriate;Drowsy [facility] Work Phone: 05-23-2024 Cognitive function Voice/Name [place] [facility] Work Phone: 05-18-2024 Cognitive function Appropriate;Cooperativ e [facility] Work Phone: Clinical Notes 09-21-2020 to 04-13-2025 Jihan Rodriguez MD - 04/13/2025 12:28 PM Elijah Colón MD - 03/14/2025 1:59 PM Jihan Michel MD - 03/03/2025 5:15 PM Erik Villa RN - 02/27/2025 1:19 PM EDT Note Date & Type Note Facility 04-13-2025 Note [address] [facility] [address] [facility] [address] DO Tiffany Bryan MD Praveen Dubey, MD [...] Days 3 04/13/2025 Unverified data imported from [employer]. May not reflect actual given/total prescription dose. [...] Radiation Therapy - unverified data imported from [employer] Please let me know if you have any questions. Jihan Rodriguez M.D. Radiation Oncology 12:28 PM, 04/13/25 AUTHENTICATED BY JIHAN RODRIGUEZ, ON 04/13/2025 12:37:06 [facility] 04-13-2025 History of Present illness Narrative Images from the original note were not included. [address] [facility] [address] [facility] [address] DO Tiffany Bryan MD Praveen Dubey, MD [...] Days 3 04/13/2025 Unverified data imported from [facility]. May not reflect actual given/total prescription dose. [...] Radiation Therapy - unverified data imported from [employer] Please let me know if you have any questions. Jihan Rodriguez M.D. Radiation Oncology 12:28 PM, 04/13/25 documented in this encounter [facility] 03-23-2025 Note Chief Complaint Prostate cancer [...] (peptic ulcer disease) Sepsis due to pneumonia ([facility]) 04/2020 Multiple ED visits- last 08/2020. Saw [...] 4, Warm. No clubbing. No cyanosis. Skin: [place], warm and dry. No rashes noted. Psychiatric: [...] supposed to start radiation therapy here in [place] but was told due to his insurance there might be some obstacles I will reach out to Dr. Rodriguez to clarify Plan 1. Follow-up with radiation oncology for his radiation therapy initiation. No further follow-up with me needed. He can see our nurse practitioner down the road should he have any concerns No order (more content not included)... [facility] 03-14-2025 Note Chief complaint: pro [...] Cataract, Chest pain, Cocaine abuse in remission ([facility]), COPD (chronic obstructive pulmonary disease) ([facility]), Edema, Emphysema of lung ([facility]), Essential hypertension (01/10/2017), Hyperlipidemia, Neck pain, Peptic ulcer disease, Prostate cancer ([facility]), PUD (peptic ulcer disease), Sepsis due to pneumonia ([facility]) (04/2020), Testicular abnormality, Thoracic aortic aneurysm, TIA [...] 6 cores (involving 60% of tissue). 45% [place] pattern 4. Cribriform growth pattern identified. Questionnaires: IPSS Questionnaire (AUA-7): Over the past month... 1) How often have you had a sensation of not emptying your bladder completely after you finish urinating? 5 - Almost always 2) How often have you had to urinate again less than two hours after you finished urinating? 5 - Almost always (more content not included)... [facility] 03-14-2025 History of Present illness Narrative Chief [...] Cataract, Chest pain, Cocaine abuse in remission ([facility]), COPD (chronic obstructive pulmonary disease) ([facility]), Edema, Emphysema of lung ([facility]), Essential hypertension (01/10/2017), Hyperlipidemia, Neck pain, Peptic ulcer disease, Prostate cancer (HCC), PUD (peptic ulcer disease), Sepsis due to pneumonia ([facility]) (04/2020), Testicular abnormality, Thoracic aortic aneurysm, TIA [...] Diagnosis Prostate, needle core biopsy: Prostatic adenocarcinoma, [place] grade 3+4=7, WHO grade group 2, involving [...] Elijah Sanchez MD documented in this encounter [facility] 03-03-2025 Note Radiation Oncology N ote: [...] AUTHENTICATED BY JIHAN RODRIGUEZ, ON 03/03/2025 17:23:59 [facility] 03-03-2025 History of Present illness [...] 5:15 PM, 03/03/25 documented in this encounter [facility] 02-27-2025 Note [facility] [address] [facility] [address] Dept: [phone] Dept Loc: [phone] DO Tiffany Bryan MD Praveen Dubey, MD Andrew Freeman, MD David Howell, MD Vijay Kudithipudi, MD Chelsea Miller, MD Michael Siedow, MD Radiation Oncology New Patient Evaluation Patient Name: Wolf Turcios Date of : 1960 Date of Service: 02/27/2025 Diagnosis: Prostate cancer (HCC) [C61] Cancer Staging Prostate cancer ([facility]) Staging form: Prostate, AJCC 8th Edition - [...] constipation. Endocrine: Ne (more content not included)... [facility] 02-27-2025 History of Present illness Narrative Images from the original note were not included. [facility] [address] [facility] [address] Dept: [phone] Dept Loc: [phone] DO Tiffany Bryan MD Praveen Dubey, MD Andrew Freeman, MD David Howell, MD Vijay Kudithipudi, MD Chelsea Miller, MD Michael Siedow, MD Radiation Oncology New Patient Evaluation Patient Name: Wolf Turcios Date of : 1960 Date of Service: 02/27/2025 Diagnosis: Prostate cancer (HCC) [C61] Cancer Staging Prostate cancer ([facility]) Staging form: Prostate, AJCC 8th Edition - [...] management. Review of Systems Review of Systems Eirk Bridges RN 02/27/2025 1:25 PM Signed Review [...] emphysema No date: Cocaine abuse in remission ([facility]) Comment: None since 2015- now on suboxone No date: COPD (chronic obstructive pulmonary disease) ([facility]) Comment: Multiple ED visits- last 08/2020 No date: Edema Comment: BLE + ED visit 07/25/20 No date: Emphysema of lung ([facility]) Comment: Severe 01/10/2017: Essential hypertension No date: Hyperlipidemia No date: Neck pain No date: Peptic ulcer disease No date: Prostate cancer ([facility]) No date: PUD (peptic ulcer disease) 04/2020: Sepsis due to pneumonia ([facility]) Comment: Multiple ED visits- last 08/2020. Saw [...] nodules. Note: This dictation was generated using [employer] voice recognition software. Please excuse any grammatical [...] patient is nervous/anxious. documented in this encounter [facility] 02-14-2025 Note I discussed risks, b enefits and alternatives of telemedicine consultation with the patient (and any accompanying persons) including the risks that the patient's personal health details and medical records will be discussed over interactive video/audio/telecommunication technology, may be recorded, and that there are inherent diagnostic limitations compared to tosy-jl-rdrl evaluations. They elected to proceed with the [...] Cataract, Chest pain, Cocaine abuse in remission ([facility]), COPD (chronic obstructive pulmonary disease) ([facility]), Edema, Emphysema of lung ([facility]), Essential hypertension (01/10/2017), Hyperlipidemia, Neck pain, Peptic ulcer disease, PUD (peptic ulcer disease), Sepsis due to pneumonia ([facility]) (04/2020), Thoracic aortic aneurysm, TIA (transient ischemic [...] 45% Maryse pattern (more content not included)... [facility] 02-14-2025 History of Present illness Narrative I discussed risks, benefits and alternatives of telemedicine consultation with the patient (and any accompanying persons) including the risks that the patient s personal health details and medical records will be discussed over interactive video/audio/telecommunication technology, may be recorded, and that there are inherent diagnostic limitations compared to qkwt-tr-igge evaluations. They elected to proceed with the [...] Cataract, Chest pain, Cocaine abuse in remission ([facility]), COPD (chronic obstructive pulmonary disease) ([facility]), Edema, Emphysema of lung ([facility]), Essential hypertension (01/10/2017), Hyperlipidemia, Neck pain, Peptic ulcer disease, PUD (peptic ulcer disease), Sepsis due to pneumonia ([facility]) (04/2020), Thoracic aortic aneurysm, TIA (transient ischemic [...] Diagnosis Prostate, needle core biopsy: Prostatic adenocarcinoma, [place] grade 3+4=7, WHO grade group 2, involving [...] male with newly diagnosed localized prostate cancer. [place] Grade Group: 2 PSA: 8.8 ng/ml Pathology [...] in treating prostate cancer. We reviewed the [facility] Preoperative Nomogram. 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 He [...] Elijah Sanchez MD documented in this encounter [facility] 02-01-2025 History of Present illness Narrative [...] week follow up. documented in this encounter [facility] 02-01-2025 Note Date of Procedure: 0 [...] AUTHENTICATED BY ELIJAH SANCHEZ, ON 02/01/2025 11:49:47 [facility] 11-25-2024 Note I received a scan [...] the above plan. Digna Wooten MD, MPH [facility] - Urology [address] [place] [address], [address] [place], [place] AUTHENTICATED BY JIHAN WOOTEN, ON 11/25/2024 15:41:20 [facility] 11-25-2024 History of Present illness Narrative I [...] the above plan. Digna Wooten MD, MPH [facility] [address] [place] [address], [address] [place], [place] documented in this encounter [facility] 11-11-2024 Note Reason for visit: I [...] Elevated PSA 11/11/2024 COPD with acute exacerbation ([facility]) 10/25/2023 Acute on chronic respiratory failure ([facility]) 08/19/2021 COPD exacerbation ([facility]) 05/24/2021 Status post right hip replacement 01/28/2021 Illiterate 01/22/2021 Opioid dependence ([facility]) 08/09/2020 Hydrocele 06/14/2020 Thoracic aortic aneurysm, without rupture 01/01/2018 COPD (chronic obstructive pulmonary disease) ([facility]) 12/29/2017 Bilateral hip pain 12/29/2017 Tobacco use 12/29/2017 Essential hypertension 01/10/2017 Past Medical History: Diagnosis Date Arthritis Asthma Cataract Bilat- s/p Right eye laser Chest pain +ED 09/21/20- Troponin and Chest CT-Neg for PE showed pneuomia and emphysema Cocaine abuse in remission ([facility]) None since 2015- now on suboxone COPD (chronic obstructive pulmonary disease) ([facility]) Multiple ED visits- last 08/2020 Edema BLE + ED visit 07/25/20 Emphysema of lung ([facility]) Severe Essential hypertension 01/10/2017 Hyperlipidemia Neck pain Peptic ulcer disease PUD (peptic ulcer disease) Sepsis due to pneumonia ([facility]) 04/2020 Multiple ED visits- last 08/2020. Saw Pulm Dr Hollis while IP 04/20/20 Thoracic aortic aneurysm States d/t drug overdose TIA (transient ischemic attack) Tobacco abuse Past Surgical History: Procedure Laterality Date ARTHROPLASTY HIP TOTAL Right 01/28/2021 Procedure: RIGHT TOTAL HIP ARTHROPLASTY; Surgeon: Teresa Terry MD; Location: [facility] OR; Service: Orthopedic EYE SURGERY Right Laser [...] of viscous lidoca (more content not included)... [facility] 11-11-2024 History of Present illness Narrative Reason [...] Elevated PSA 11/11/2024 COPD with acute exacerbation ([facility]) 10/25/2023 Acute on chronic respiratory failure ([facility]) 08/19/2021 COPD exacerbation ([facility]) 05/24/2021 Status post right hip replacement 01/28/2021 Illiterate 01/22/2021 Opioid dependence ([facility]) 08/09/2020 Hydrocele 06/14/2020 Thoracic aortic aneurysm, without rupture 01/01/2018 COPD (chronic obstructive pulmonary disease) ([facility]) 12/29/2017 Bilateral hip pain 12/29/2017 Tobacco use 12/29/2017 Essential hypertension 01/10/2017 Past Medical History: Diagnosis Date Arthritis Asthma Cataract Bilat- s/p Right eye laser Chest pain +ED 09/21/20- Troponin and Chest CT-Neg for PE showed pneuomia and emphysema Cocaine abuse in remission ([facility]) None since 2015- now on suboxone COPD (chronic obstructive pulmonary disease) ([facility]) Multiple ED visits- last 08/2020 Edema BLE + ED visit 07/25/20 Emphysema of lung ([facility]) Severe Essential hypertension 01/10/2017 Hyperlipidemia Neck pain Peptic ulcer disease PUD (peptic ulcer disease) Sepsis due to pneumonia ([facility]) 04/2020 Multiple ED visits- last 08/2020. Saw Pulm Dr Hollis while IP 04/20/20 Thoracic aortic aneurysm States d/t drug overdose TIA (transient ischemic attack) Tobacco abuse Past Surgical History: Procedure Laterality Date ARTHROPLASTY HIP TOTAL Right 01/28/2021 Procedure: RIGHT TOTAL HIP ARTHROPLASTY; Surgeon: Teresa Terry MD; Location: [facility] OR; Service: Orthopedic EYE SURGERY Right Laser [...] and draped in a sterile fashion. A 16-Swazi flexible cystoscope was inserted per urethra and [...] PA-C for this. Digna Wooten MD, MPH [facility] - Reconstructive Urology [address] [facility], [address] [place], [place] [1] Current Outpatient Medications Medication Sig [...] Resource Strain: Medium Risk (10/30/2023) Received from [facility] Overall Financial Resource Strain (CARDIA) Difficulty [...] Sodium Chlorine mL size: 500 Lot number: [id number] Exp date: 06/06/2027 [facility]: [id number] Review of Systems HENT: Positive for congestion. [...] and are negative. documented in this encounter [facility] 10-28-2024 Note Patient Name: Randall Turcios MR #: [id number] : 1960 Physicians: Ivonne Henry MD (Referring) [...] pneuomia and emphysema Cocaine abuse in remission ([facility]) None since 2015- now on suboxone COPD (chronic obstructive pulmonary disease) ([facility]) Multiple ED visits- last 08/2020 Edema BLE + ED visit 07/25/20 Emphysema of lung ([facility]) Severe Essential hypertension 01/10/2017 Hyperlipidemia Neck pain Peptic ulcer disease PUD (peptic ulcer disease) Sepsis due to pneumonia ([facility]) 04/2020 Multiple ED visits- last 08/2020. Saw Pulm Dr Hollis while IP 04/20/20 Thoracic aortic aneurysm States d/t drug overdose TIA (transient ischemic attack) Tobacco abuse Past Surgical History: Procedure Laterality Date ARTHROPLASTY HIP TOTAL Right 01/28/2021 Procedure: RIGHT TOTAL HIP ARTHROPLASTY; Surgeon: Teresa Terry MD; Location: [facility] OR; Service: Orthopedic EYE SURGERY Right Laser [...] . lisinopriL (PRINI (more content not included)... [facility] 10-28-2024 History of Present illness Narrative Images from the original note were not included. Patient Name: Wolf Turcios MR #: [id number] : 1960 Physicians: Ivonne Henry MD (Referring) [...] on suboxone COPD (chronic obstructive pulmonary disease) ([facility]) Multiple ED visits- last 08/2020 Edema BLE + ED visit 07/25/20 Emphysema of lung ([facility]) Severe Essential hypertension 01/10/2017 Hyperlipidemia Neck pain Peptic ulcer disease PUD (peptic ulcer disease) Sepsis due to pneumonia ([facility]) 04/2020 Multiple ED visits- last 08/2020. Saw Pulm Dr Hollis while IP 04/20/20 Thoracic aortic aneurysm States d/t drug overdose TIA (transient ischemic attack) Tobacco abuse Past Surgical History: Procedure Laterality Date ARTHROPLASTY HIP TOTAL Right 01/28/2021 Procedure: RIGHT TOTAL HIP ARTHROPLASTY; Surgeon: Teresa Terry MD; Location: [facility] OR; Service: Orthopedic EYE SURGERY Right Laser [...] examination or procedure in which a trained casing crew will be available to enhance the patient's comfort, safety, privacy, security and/or dignity. The trained casing crew will fire prevention inspector a location where he or she can observe what is going on and assist as needed. Following the above discussion, patient Decline casing crew for exam. Vital Signs: BP (!) 135/91 Pulse (!) 109 Temp 99.9 F (37.7 C) GENERAL: Well appearing. No acute distress. EYES: No changes in vision, no blurry vision EARS, NOSE, MOUTH, THROAT: mucous memebranes moist, trachea midline CARDIOVASCULAR/PULMONARY: unlabored breathing without shortness of breath. ABDOMEN: Soft, nondistended, nontender. BACK: No CVA tenderness. (patient declined casing crew): Penis is circumcised with an orthotopic meatus. [...] The above 18 analytes were performed by [address],[place] [address] ALT Date Value Ref Range Status 08/20/2021 [...] as testing and labs in preparation for hdwl-cq-qwnz visit with the patient today. During this [...] any questions or concerns. Kvng Escoto PA-C [facility] Urology - [facility] Office: [phone] [1] Social History Socioeconomic History Marital status: [...] Resource Strain: Medium Risk (10/30/2023) Received from [facility] Overall Financial Resource Strain (CARDIA) Difficulty [...] and are negative. documented in this encounter [facility] 09-22-2024 Radiology Diagnostic study note [facility] Imaging Services [address] [place] [address] Testicular with Arterial Flow MR#: [id number] Acct: [id number] Name: WOLF TURCIOS Jr. Rep #: [id number] : 1960 M 64 From: Martir Mc MD PCP: Dr. Iker Blackwell MD Status: REG CL I Study:Testicular with Arterial Flow Date of E xam: 09/21/24 Exam# [id number] Ordering Dr: Merly Blackwell MD PROCEDURE: TESTICULAR [...] bilateral arterial and venous flow seen. Bilateral bxjg-qy-gzsfjxsf appearing hydroceles are noted measuring approximately 4.3 x 5.3 x 2 cm on the right and 5.3 x 3.3 x 2.7 cm on the left. US/Testicular with Arterial Flow IMPRESSION: The testicles appear symmetric and isoechoic with bilateral arterial and venous flow seen. Bilateral iwbh-jh-criphjec appearing hydroceles are noted measuring approximately 4.3 x 5.3 x 2 cm on the right and 5.3 x 3.3 x 2.7 cm on the left. Reading Location: [facility] CC: Dr. Iker Blackwell MD ~ Family Services Manager: Signed [facility] 06-02-2024 Evaluation note Diagnosis Onset Date Resolution Esophageal foreign body acute June 02, 2 024 6:58pm [facility] Work Phone: 1(455) 384-778212-16-2024 [facility] Medical Records Department [address] [place] [address] Discharge Summary 05/23/24 1027 MR#: [id number] Acct: [id number] Name: WOLF TURCIOS Jr. Rep #: [id number] : 1960 64 From: Elijah Guerrero DO PCP: Dr. Iker Blackwell MD Status:ADM MEGAN Location: [place] [address] Providers Date of Admission: 05/20/24 Primary Care [...] status. Reports that he recently moved from [place] to [place] because of concerns with substance abuse around [...] discharged. Me was were inquiring about some long-term facility information. I told him that we [...] 05/17/24 dextromethorphan-guaifenesin 30 mg-600 mg tablet extended vzanqdb43 hr (Mucus DM) 1 tab PO Q12H [...] oxygen Yes 05/23/24 08:43 (more content not included)...[facility]12-11-2024 [facility] Medical Records Department [address] [place] [address] Discharge Summary 05/18/24 0937 MR#: [id number] Acct: [id number] Name: WOLF TURCIOS Jr. Rep #: [id number] : 1960 64 From: Elijah Guerrero DO PCP: Dr. Iker Blackwell MD Status:ADM IN Location: [place] [address] Providers Date of Admission: 05/17/24 Primary Care [...] 05/17/24 dextromethorphan-guaifenesin 30 mg-600 mg tablet extended erukckz28 hr (Mucinex DM) 1 tab PO BID [...] % (Auto) 65.6, Lymph % (Auto) 19.6, [place] % (Auto) 8.1, Eos % (Auto) 5.5 [...] 258 H, Calcium 9.2 (more content not included)...[facility]12-10-2024 Evaluation note* Diagnosis Onset Date Resolution Status Admit Date Hypoxemia acute May 17, 2024 5:16pm COPD exacerbation resolved Decembe r 2023 5:16pm Hypoxemia acute May 20, 2024 10:03pm Tobacco abuse acute May 202023 10:03pm COPD exacerbation resolved Decembe r 2023 10:03pm Esophageal foreign body acute D ecember 2023 6:58pm [facility] Work Phone: 1(978) 152-148306-03-2024 Telephone encounter Note* Telephone Encounter - Kiersten Cerna RN - 11/09/2023 10:43 AM EDT Called patient and provided recommendations per PCP's note. Patient expressed understanding with noquestions at this time. [facility]06-03-2024 Miscellaneous Notes* Telephone Encounter - Kiersten [...] someone. Please advise. [facility] Telephone encounter Note* Telephone Encounter - Ivonne Henry MD - 11/08/2023 11:23 PM EDT Recommend patient call his insurance to determine which hospital system will accept his insurance. After determining the hospital system, he will need to choose a location and we can fax over a consult to that specific office so that he can get scheduled. [facility] Miscellaneous Notes* Telephone Encounter - Ivonne [...] someone. Please advise. documented in this encounter[facility] Telephone encounter Note* Telephone Encounter - [...] in to see someone. Please advise. [facility] History of Present illness Narrative* Teresa Gay MD, PhD - 11/04/2023 1:30 PM EDT Date of Encounter: 11/04/2023 Chief Complaint The patient is a 63 y.o. male who presents today for Follow-up (Pt states he's here for a hospital follow up for bronchitis day before yesterday). Hospital Follow Up PCP: Ivonne Henry [facility], discharged/transferred to [facility] per patient preference and discharged on [...] morning as needed. 90 tablet 3 Nystatin 732660 UNIT/ML oral suspension Swish and swallow 10 [...] PhD Resident, Department of Internal Medicine [facility] * Zi Alfaro MD - 11/04/2023 1:30 PM EDT Attending Addendum (GC): This patient was discussed, examined, and evaluated with the resident physician on the day of the encounter. I have independently confirmed essential components of the medical history and the physical examination [id number] with the patient. I agree with the [...] initiate pulm rehab referral. Zi Alfaro MD Car Repairer of Clinical Medicine Division of General Internal [...] to his room. documented in [facility] Instructions* Patient Instructions* Teresa Gay MD, [...] you to pulmonary rehab today. Please call [phone] to schedule your appointment with Pulmonary rehabilitation. -we will also refer you to pulmonology for help with considering additional options or better ways to control your COPD. Please call [phone] to schedule your appointment with Pulmonology. -if your symptoms get any worse, you develop fevers or difficulty breathing that doesn't respond toyour inhalers you should call us right away or go to the emergency room documented in this encounterOS[facility]28-[facility] History of Present illness Narrative* Keyana Ibarra RN - 11/03/2023 9:00 AM EDT Transitional Care Management Keyana Ibarra RN 11/03/2023 2:07 PM Transitional Care Management Note (Initial) [facility] and [facility] - [facility] then transferred to [facility] and discharged on 10/31 Contact made within [...] Trelegy equivalent. He returned to his home [facility]. Due to insurance concerns, the patient preferred transfer to outside facility which was accommodated. [place]: Pt did not meet criteria for home [...] may benefit, route to PCP and career and technology education teacher) - no Name of patient's home [...] at this time documented in this encounterOSU [facility]05-26-2024 NoteHMS PROGRESS NOTE Assessment and Plan Wolf Turcios is a 63 y.o. male patient of Ivonne Henry MD with history of COPD on chronic as needed oxygen, hypertension who presented to [facility] on 10/31/2023 with respiratory failure, COPD flare. Acute on chronic hypoxic respiratory failure On 2L O2 NC prn at home Requiring 3L O2 NC on admission, weaned to room air Home O2 eval completed and sats > 91% with ambulation on room air Continue home O2 prn AECOPD Admitted (10/24-10/26) at [facility] and then readmitted to [facility] (10/29) for the same Transferred to [facility] due to insurance Afebrile, no leukocytosis CXR at [facility] 10/28 concerning for fibrotic process Continue Azithro course to complete 5 days Prednisone resumed and discharged home on taper Pt got nebulizer supplies prescribed after hospitalization at [facility], not able to get new [...] affect AUTHENTICATED BY PABLO DAVILA, ON 11/01/2023 11:41:12[facility]05-25-2024 NoteHMS HISTORY AND PHYSICAL -- [facility] Patient Name: Wolf Turcios : 1960 MR #: [id number] Admit Date: 10/31/2023 Physicians: Ivonne Henry MD (Family); Loreto Walsh MD (Referring) Wolf Turcios is a 63 y.o. male patient of Ivonne Henry MD with history of COPD on chronic as needed oxygen, hypertension who presented to [facility] on 10/31/2023 with respiratory failure, COPD flare. Acute hypoxic, hypercapnic respiratory failure AECOPD At baseline only uses oxygen at home as needed up to 2L (pt believes canister is compromised and requesting new) Recently discharged from [facility] on 10/26 on room air Represented to OSH with acute dyspnea and was found to be hypoxic requiring up to 3L NC Possible non-compliance with home inhalers CXR at [facility] 10/28 concerning for fibrotic process. No dense [...] as needed oxygen, hypertension who presented to [facility] on 10/31/2023 with respiratory failure, COPD flare. [...] pneuomia and emphysema Cocaine abuse in remission ([facility]) None since 2015- now on suboxone COPD (chronic obstructive pulmonary disease) ([facility]) Multiple ED visits- last 08/2020 Edema BLE + ED visit 07/25/20 Emphysema of lung ([facility]) Severe Essential hypertension 01/10/2017 Hyperlipidemia Neck pain Peptic ulcer disease PUD (peptic ulcer disease) Sepsis due to pneumonia ([facility]) 04/2020 Multiple ED visits- last 08/2020. Saw Pulm Dr Hollis while IP 04/20/20 Thoracic aortic aneurysm ([facility]) States d/t drug overdose TIA (transient ischemic attack) Tobacco abuse Past Surgical History Past Surgical History: Procedure Laterality Date ARTHROPLASTY HIP TOTAL Right 01/28/2021 Procedure: RIGHT TOTAL HIP ARTHROPLASTY; Surgeon: Teresa Terry MD; Location: [facility] OR; Service: Orthopedic EYE SURGERY Right Laser [...] reviewed the patient's allergie (more content not included)...[facility]05-25-2024 Nurse Note* Nursing Notes - Austin Castro RN - 10/31/2023 11:36 AM EDT After review of the AVS by bedside RN, patient verbalized understanding and denies any questions orconcerns related to medications or follow up plans. PIV remained due to transfer to another inpatient hospital. Patient reports all personal belongings accounted for at the time of discharge. [facility] ambulance for discharge to [facility]. Austin Castro RN [facility]05-25-2024 Miscellaneous Notes* Nursing Notes - Austin Castro RN - 10/31/2023 11:36 AM EDT After review of the AVS by bedside RN, patient verbalized understanding and denies any questions orconcerns related to medications or follow up plans. PIV remained due to transfer to another inpatient hospital. Patient reports all personal belongings accounted for at the time of discharge. Patientwill be transported to the [facility] by ambulance for discharge to [facility]. Austin Castro RN * Plan [...] Provided report to Jaylin (Transfer Nurse) RN [phone]. The patient will be transferred to [facility] to Medical Surgical Orthopedic Unit (Room 3001). Faxed over PREM and AVS to [phone] * Plan of Care - Betty Wellington [...] administered prn Tylenol and Flexiril. Notified on-call [facility] 3 Physician (Dr. Flynn). No new orders at this time. RAY Hernández (on-coming RN) also made aware. * Nursing Notes - Lawrence Pérez RN - 10/30/2023 11:00 PM EDT Received discharge order from covering physician. Called medical transportation to set up. Providedreport and transport tentatively scheduled for 0800. Charge nurse made aware. Spoke with RAY Mosqueda (charge nurse) at [facility] Med-Surg Ortho Unit to make aware of pending transport time. Confirmed with RAY Mosqueda that patient will be admitted to [facility] Med-Surg Ortho room 3001. * Nursing Notes - Austin Castro RN - 10/30/2023 7:35 PM EDT Bonnie (Transfer Nurse) RN from [facility] reported the patient's room is now available. The patient will be transferred to [facility] to Medical Surgical Orthopedic Unit (Room 3001). This nurse provided report. Bonnie BELL requested two face sheets to be sent with the patient and face sheets, AVS, PREM, and any imaging to be faxed to [phone]. This worker informed Lawrence BELL (9ER) of [...] Laterality: N/A; Surgeon: Jihan Olivarez MD; Location: [facility] MAIN OR FINGER SURGERY 2008 [...] by mouth Every morning as needed. Nystatin 947642 UNIT/ML oral suspension 10/29/2023 Yes Yes Sig: [...] and hunger/thirst. Pt was provided food from [employer], and admission was completed. On admission to [facility], from ED a dual RN initial assessment of skin condition was performed by Ruth Calvert RN and Jamal Diggs RN. Skin Assessment: Skin within defined limits:Yes Farooq Score: 21 LDA Added:No Ruth Calvert RN documented in this encounterMer[facility] Hospital course Narrative* Broderick Tejada MD [...] during his recent hospital stay at [facility]. As you may know, Wolf Turcios is [...] equivalent. He returned to his home 2L [place]. Due to insurance concerns, the patient preferred transfer to outside facility which was accommodated. Upon discharge the patient's code was Full Code Please see the remainder of this document for relevant data from this admission as well as the patient's discharge instructions and follow-up appointments.. An electronic copy of the patient's records can be obtained via [facility] at [email or web address] It has been my pleasure participating in this patient's care. Please contact me with any questions or concerns regarding his hospital stay. The total time of discharge was 35 minutes. Sincerely, Broderick Tejada MD Dictated under attending physician Loreto Walsh MD Division of Hospital Medicine p: [phone] f: [phone] Relevant Data from this Admission Vitals BP: [...] by mouth Every morning as needed. Nystatin 012663 UNIT/ML oral suspension Commonly known as: MYCOSTATIN omeprazole [address] capsule Commonly known as: PRILOSEC Potassium chloride 20 MEQ tab ER tablet Commonly known as: K-DUR prednisoLONE-Moxifloxacin 1-0.5 % SOLN Tamsulosin HCl 0.4 MG CAPS Commonly known as: FLOMAX Trelegy Ellipta 100-62.5-25 MCG/ACT AEPB inhaler Generic drug: jeeogvgzwiu-ncoytbvjj-Qebbat Inhale 1 puff daily. Ventolin HFA 108 [...] as documented. Patient will be transferring to [facility] for continued care for his COPD exacerbation due to insurance concerns. Together with the resident, we spent ~35 minutes with discharge management on the day of discharge. Loreto Walsh MD Hospital Medicine Pager: #[phone] * Zohaib Flynn MD - 10/30/2023 10:33 [...] during his recent hospital stay at [facility]. The following describes his hospital course. Primary [...] during his recent hospital stay at [facility]. As you may know, Wolf Turcios is [...] Flynn MD, MS Internal Medicine-Pediatrics Resident, PGY1 [facility] Dictated under attending physician Loreto Walsh MD Division of Hospital Medicine p: [phone] f: [phone] CONSULTS DURING ADMISSION: IP CONSULT TO PHYSICAL [...] reports please contact Medical Information Management @ [phone] LABS AT TIME OF DISCHARGE: Lab Results [...] PATIENT'S MEDICAL HOME AT DISCHARGE: Ivonne Henry [address] [place] [id number] MEDICATIONS: Medication List for when you go [...] on October 30, 2023 9:24 AM Nystatin 814320 UNIT/ML oral suspension Swish and swallow 10 [...] inhaler Inhale 1 puff daily. Generic drug: znxouaxlzxu-wxeycpzgc-Ahbdma Ventolin HFA 108 (90 Base) MCG/ACT AERS [...] Care - General Internal Medicine Outpatient Care [facility] Arrive at: Arrive to 3rd Floor Registration Desk [phone] Associated attestation - Loreto Walsh MD - 10/31/2023 11:25 AM EDT Please see attestation on dc summary from 10/30. Pt did not discharge on 10/29 documented in this encounterOS[facility] Plan of care note* Plan of Care - Austin Castro RN - 10/31/2023 10:14 AM EDT Problem: Adult Inpatient Plan of Care Goal: Readiness for Transition of Care Outcome: Not Progressing Problem: Adult Inpatient Plan of Care Goal: Plan of Care Review Outcome: Progressing Flowsheets (Taken 10/31/2023 1014) Progress: no change Plan of Care Reviewed With: patient [facility]05-25-2024 Nurse Note* Nursing Notes - Austin Castro RN - 10/31/2023 7:19 AM EDT Provided report to Jaylin (Transfer Nurse) RN [phone]. The patient will be transferred to [facility] to Medical Surgical Orthopedic Unit (Room 3001). Faxed over PREM and AVS to [phone] [facility]05-25-2024 Plan of care note* Plan of [...] and safety during daily routine. Outcome: Progressing [facility]05-25-2024 Nurse Note* Nursing Notes - Lawrence Pérez RN - 10/31/2023 12:10 AM EDT Patient reports having 6/10 intermittent midsternal chest pain that is exacerbated with coughing. Obtained vital signs and administered prn Tylenol and Flexiril. Notified on-call [facility] Med 3 Physician (Dr. Flynn). No new orders at this time. RAY Hernández (on-coming RN) also made aware. [facility]05-24-20[facility] Nurse Note* Nursing Notes - Lawrence Pérez RN - 10/30/2023 11:00 PM EDT Received discharge order from covering physician. Called medical transportation to set up. Providedreport and transport tentatively scheduled for 0800. Charge nurse made aware. Spoke with RAY Mosqueda (charge nurse) at [facility] Med-Surg Ortho Unit to make aware of pending transport time. Confirmed with RAY Mosqueda that patient will be admitted to [facility] Med-Surg Ortho room 3001. [facility]05-24-2024 Nurse Note* Nursing Notes - Austin Castro RN - 10/30/2023 7:35 PM EDT Bonnie (Transfer Nurse) RN from [facility] reported the patient's room is now available. The patient will be transferred to [facility] to Medical Surgical Orthopedic Unit (Room 3001). This nurse provided report. Bonnie BELL requested two face sheets to be sent with the patient and face sheets, AVS, PREM, and any imaging to be faxed to [phone]. This worker informed Lawrence BELL (ER) of this information. [facility]05-24-2024 Hospital Discharge instructions* Discharge Instructions* Broderick [...] sent through Care Everywhere. * COPD: Exacerbation (Libyan) documented in this encounterOS[facility] History of Present illness Narrative* Jen Burr, FRONT END MECHANIC - 10/30/2023 2:48 PM EDT Psychosocial Assessment Per chart review, patient is a 63 year old male admitted for COPD exacerbation. Credit Reference Clerk met with patient to introduce self, explain [...] income-on SSDI Linked with a SW though [employer]. Employment Financial Employed?: Disabled Employment/Financial Concerns: no Employment/Financial Comments: Pt has limited income but is ustilizing community resources for basic needs. Source Of Income: disability Financial Concerns: other (see comments) (Limited financial income but is able to provide for needssuch as food, cell-phone and transportation through [employer].) Financial Resource Strain: Financial Resource Strain: Medium Risk (10/30/2023) Overall Financial Resource Strain (CARDIA) Difficulty of Paying Living Expenses: Somewhat hard Pt has SSDI and is linked with [employer]. Housing Stability: Housing Stability: Unknown (10/30/2023) Housing [...] reported he is working with SW with [employer] who has assisted in completing housing applications [...] Needs: No Transportation Needs (10/26/2023) [facility] Lack of Transportation (Medical): No Lack of Transportation (Non-Medical): No Cab service through [employer]. Utilities: Social Determinants of Health Utilities: Not At Risk (10/26/2023) Received from [facility] Utilities Threatened with loss of utilities: No N/A Abuse Screen Abuse Screen Do You Feel Unsafe at Home, Work or School?: no Cultural, Spiritual, Yazidism Practices Cultural or evangelical practices that may impact discharge planning and/or [...] know if he was being transferred to [facility]. SW updated pt that CM is working on the transfer but [facility] has not confirmed they have an open bed. SW updated pt that [employer] [facility] within pt insurance network and can assist in getting the pt oxygen. Basic Needs: Pt resides with a friend. No safety concerns. Pt reported he is on SSDI with limited income. No financial concerns as pt is receiving housing, food and transportation assistance from [employer]. Medical: Pt needs oxygen. Requesting transfer to [facility] due to pt insurance not being in network with [facility]. CLAUDIO Intervention(s) and Recommendation(s): SW provided verbal support and emotional support. Pt reported he misses his dog. SW will continue to follow for discharge planning and care coordination. Jen HUERTAS Finishing Range Feeder Available through secure chat * Lauren Rasheed RN - 10/30/2023 12:11 PM EDT Transition Planning Met with patient to discuss his insurance is out of network. He stated he prefers to transfer to a hospital who is in network with his insurance. Called [facility] transfer center [phone] and they are looking for a bed. Ambulance form completed and is at [facility] desk. Messaged [facility] to see if they accept patient's insurance. They do. [facility] [address] [place] [address] Addendum: 4:17 pm called [facility]. Spoke with Accepted to Jorge Luis. Dr. aDvila. Accepting.RN station number provided. They will call when they have a bed available. Then can call [employer] [phone] to request an ambulance. Will continue to follow for discharge planning and care coordination. Lina March RN, MSSA, OIL BURNER JOURNEYMAN-S, ACM-SW R 9 E Clinical Skip Locator * Lauren Rasheed RN - 10/30/2023 10:43 AM EDT Discharge Planning Patient Assessment Admission Assessment Patient Assessment Completed: Initial Anticipated discharge disposition: Home Reason for Admission: COPD exacerbation Is the patient able to participate in the assessment?: Yes Information source: Patient, Review of Medical Record Information Source Name/Contact: Wolf Turcios [phone] Demographics Verified and Updated: Yes Has the [...] Yes Name and Contact information: Day Turcios [phone] Would you like to add additional adult [...] Is the patient from a facility or snf?: No Patient lives with: Friend(s) Living Environment: [...] Is the patient on Anticoagulation? 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 : Yes Financial concern type: Housing Referrals to address financial concerns: Social Work Employed?: Disabled Coping/Stress Concerns about patient s coping and stress?: No Concerns about patient s caregiver s coping and stress?: No Identified Caregiver Values and Beliefs Cultural or evangelical practices that may impact discharge planning and/or [...] with follow up. Calling [facility]. [phone] To see if they are the providers. . Confirmed he owes a balance of about $100. He will need to make payment arrangements or shown that he has always Medicaid before they will deliver. He a walk of life and new oxygen orders. 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 Will continue to follow for discharge planning and care coordination. Lina March RN, [facility], OIL BURNER JOURNEYMAN-S, ACM-SW R 9 E Clinical Skip Locator * Broderick Tejada MD - 10/30/2023 9:01 AM EDT Internal Medicine Daily Progress Note Patient: Wolf Turcios, 1960, [id number] Physician: Broderick Tejada MD, PGY1, Pager #[phone], Gen Med 3 service Subjective/Interval History: Transferred [...] status is full Broderick Tejada MD [facility] Anesthesiology, PGY-1 10/30/2023 9:01 AM Pager #[phone] Associated attestation - Loreto Walsh MD - [...] pulm rehab and IP smoking cessation consult. Chief Steward/Stewardess on continued use of/compliance with scheduled home Trelegy Ellipta at discharge Loreto Walsh MD Hospital Medicine Pager: #[phone] * Karen [facility] - 10/30/2023 8:31 AM EDT Acute Physical Therapy Evaluation Prior Gross Functional Mobility: independent Current AM-PAC score(s): CURRENT AM-PAC Mobility Raw Score: 18 Based on the above AM-PAC score(s) and PT clinical judgment, patient is a good candidate for discharge to Intermediate Facility (Hopeful progression to home) Barriers to [...] Proprioception Proprioception: intact Mobility Assessment: Rolling/Turning Mobility [place] Level: Rolling/Turning: not tested Scooting Bridging Mobility [place] Level: Scooting/Bridging: not tested Supine to Sit Mobility [place] Level: Supine->Sit: supervision Bed Features/Set-up: Supine->Sit: Head [...] positioning on EOB. Sit to Supine Mobility [place] Level: Sit->Supine: not tested Balance: Sitting Balance [...] safety. Transfer Assessment: Sit to Stand Transfer [place] Level: Sit->Stand: contact guard assist Assistive Device: Sit->Stand: gait belt Skilled Rationale: Positioning, Verbal cues, Facilitate anterior shift, Full extension to upright positioning/posture, Upright gaze/neck extension, Technique of activity, Cues for increased safety Skilled Intervention/Details: Sit->Stand: x1 from EOB. No overt LOB. Cueing given for technique,upright posture, and safety. Stand to Sit Transfer [place] Level: Stand->Sit: contact guard assist Assistive Device: Stand->Sit: gait belt, armed chair Skilled Rationale: Positioning, Sequencing, Hand placement, Verbal cues, Controlled descent for sitting, Technique of activity, Cues for increased safety Skilled Intervention/Details: Stand->Sit: x1 to chair. No overt LOB. Cueing given for eccentric control on descent, hand placement, and placing legs against chair before sitting. Bed-Chair Transfer [place] Level: Bed<->Chair: not tested Gait/Functional Mobility: Gait Assessment [place] Level: Gait: contact guard assist Assistive Device: [...] currently uses wheelchair?: No Stairs: Stairs Assessment [place] Level: Stair Negotiation: not tested Outcome Score(s): CURRENT [facility] Basic Mobility Inpatient Short Form Turning over [...] railin - A Lot of Assistance CURRENT [facility] Mobility Raw Score: 18 CURRENT [facility] Mobility Functional Limitation: 46.58% Impaired in Basic [...] u david/dynamic surfaces, Limited ability to complete musculoskeletal physician/maintenance, Limited standing tolerance, Decreased functional mobility. Current [...] accurate skilled clinical decisions and judgements. Nancy eD Leon PT License # [id number] Pager [phone] * Alyce Barahona OT - 10/30/2023 8:31 AM EDT Acute Occupational Therapy Evaluation Prior Gross Functional Mobility: independent Current AM-PAC score(s): CURRENT AM-PAC Activity Raw Score: 20 Based on the above AM-PAC score(s) and OT clinical judgment, discharge destination recommendation is: Intermediate Facility (with hopeful progression) Barriers to discharge [...] Edema: Mobility Assessment: Supine to Sit Mobility [place] Level: Supine->Sit: supervision Bed Features/Set-up: Supine->Sit: Head of bed elevated, Use of bed rail Skilled Rationale: Positioning, Sequencing, Hand placement, Verbal cues, Tactile cues Transfer Assessment: Sit to Stand Transfer [place] Level: Sit->Stand: contact guard assist Assistive Device: Sit->Stand: gait belt Skilled Rationale: Positioning, Sequencing, Hand placement, Verbal cues, Tactile cues, Cues for increased safety, Energy conservation, Breathing strategies Stand to Sit Transfer [place] Level: Stand->Sit: contact guard assist Assistive Device: Stand->Sit: gait belt Skilled Rationale: Positioning, Sequencing, Hand placement, Verbal cues, Tactile cues, Energy conservation, Cues for increased safety, Breathing strategies Functional Mobility: Functional Mobility [place] Level: Functional Mobility/Gait: contact guard assist Assistive Device: Functional Mobility/Gait: gait belt Functional Mobility Distance: Distance needed to access restroom Functional Mobility Deficits: Activity tolerance, Shortness of breath, Follow safety/precautions Outcome Score(s): CURRENT [facility] Daily Activity Inpatient Short Form Putting on/Taking Off Lower Body Clothin - A Little Assistance Bathin - A Little Assistance Toiletin - A Little Assistance Putting on/Taking Off Upper Body Clothin - No Assistance Groomin - A Little Assistance Eatin - No Assistance CURRENT [facility] Activity Raw Score: 20 CURRENT [facility] Activity Functional Limitation/Modifier: 38.32% Currently Impaired [...] Laterality: N/A; Surgeon: Jihan Olivarez MD; Location: [facility] MAIN OR FINGER SURGERY 2007 [...] Therapy Discharge Summary. [facility] Plan of care note* Plan of [...] Laterality: N/A; Surgeon: Jihan Olivarez MD; Location: [facility] MAIN OR FINGER SURGERY 2007 [...] by mouth Every morning as needed. Nystatin 370956 UNIT/ML oral suspension 10/29/2023 Yes Yes Sig: [...] by Lucy Hoyt RCP 10/30/2023 9:13 AM [facility]05-24-2024 Plan of care note* Plan of [...] safely navigate home and community. Outcome: Ongoing [facility]05-24-2024 Plan of care note* Plan of [...] and safety during daily routine. Outcome: Ongoing [facility]05-23-2024 Nurse Note* Nursing Notes - Ruth [...] and hunger/thirst. Pt was provided food from [employer], and admission was completed. On admission to [facility], from ED a dual RN initial assessment of skin condition was performed by Ruth Calvert RN and Jamal Diggs RN. Skin Assessment: Skin within defined limits:Yes Farooq Score: 21 LDA Added:No Ruth Calvert RN [facility]05-23-2024 History and physical note* Mirta Warren MD - 10/29/2023 8:21 PM EDT Images from the original note were not included. Internal Medicine Admission History & Physical Patient: Wolf Turcios, 1960, [id number] Physician: Mirta Warren MD, PGY1, Pager #[phone], [facility] service Date of face to face patient encounter: 10/29/2023. Chief Complaint: COPD exacerbation History Of Present Illness: Wolf Turcios is a 63 y.o. male with a history of COPD, HTN, and TIA who presents with dyspnea. Patient reports recent discharge from [facility] for similar presentation. He feels [...] 1L of fluids. He was [facility] for further respiratory support. Medical/Surgical History: Past Medical History: Diagnosis Date Cocaine use inhaled crack cocaine COPD (chronic obstructive pulmonary disease) Essential hypertension 01/10/2017 Sciatica TIA (transient ischemic attack) 01/2017 Tobacco use Past Surgical History: Procedure Laterality Date LAPAROTOMY EXPLORATORY N/A 10/12/2017 Laterality: N/A; Surgeon: Jihan Olivarez MD; Location: [facility] MAIN OR FINGER SURGERY 2007 SKIN [...] by mouth Every morning as needed. Nystatin 999160 UNIT/ML oral suspension Sig: Swish and swallow [...] erythema Skin: No jaundice or rash Neuro: gutter hanger 3-7, 9-11 intact and equal. Strength grossly [...] DVT prophylaxis with lovenox Disposition: Admit to [facility] 4 Code status is full Staffed with Gilbert Paul MD Signed, Mirta Warren MD PGY-1, Internal Medicine-Pediatrics [facility] Pager #[phone] Associated attestation - Gilbert Paul MD - [...] of breath. He was recently discharged from [facility] followin admission for acute exacerbation [...] Azithromycin 500 mg x3 days Pulmonary toilet Chief Steward/Stewardess on continued use of/compliance with scheduled home Trelegy Ellipta at discharge Principal Problem: Chronic obstructive pulmonary disease with acute exacerbation Active Problems: PUD (peptic ulcer disease) BPH (benign prostatic hyperplasia) Essential hypertension History of substance use disorder History of TIA (transient ischemic attack) Date of service: 10/29/2023 Gilbert Paul MD [facility] Work Phone: 1(469) 891-418705-23-2024 History and physical note* Mirta Warren MD - 10/29/2023 8:21 PM EDT Images from the original note were not included. Internal Medicine Admission History & Physical Patient: Wolf Turcios, 1960, [id number] Physician: Mirta Warren MD, PGY1, Pager #[phone], [facility] service Date of face to face patient encounter: 10/29/2023. Chief Complaint: COPD exacerbation History Of Present Illness: Wolf Turcios is a 63 y.o. male with a history of COPD, HTN, and TIA who presents with dyspnea. Patient reports recent discharge from [facility] for similar presentation. He feels [...] 1L of fluids. He was admitted to [facility] for further respiratory support. Medical/Surgical History: Past Medical History: Diagnosis Date Cocaine use inhaled crack cocaine COPD (chronic obstructive pulmonary disease) Essential hypertension 01/10/2017 Sciatica TIA (transient ischemic attack) 01/2017 Tobacco use Past Surgical History: Procedure Laterality Date LAPAROTOMY EXPLORATORY N/A 10/12/2017 Laterality: N/A; Surgeon: Jihan Olivarez MD; [facility] 2007 SKIN [...] by mouth Every morning as needed. Nystatin 608029 UNIT/ML oral suspension Sig: Swish and swallow [...] erythema Skin: No jaundice or rash Neuro: gutter hanger 3-7, 9-11 intact and equal. Strength grossly [...] DVT prophylaxis with lovenox Disposition: Admit to [facility] 4 Code status is full Staffed with Gilbert Paul MD Signed, Mirta Warren MD PGY-1, Internal Medicine-Pediatrics [facility] Pager #[phone] Associated attestation - Gilbert Paul MD - [...] of breath. He was recently discharged from [facility] followin admission for acute exacerbation [...] Azithromycin 500 mg x3 days Pulmonary toilet Chief Steward/Stewardess on continued use of/compliance with scheduled home Trelegy Ellipta at discharge Principal Problem: Chronic obstructive pulmonary disease with acute exacerbation Active Problems: PUD (peptic ulcer disease) BPH (benign prostatic hyperplasia) Essential hypertension History of substance use disorder History of TIA (transient ischemic attack) Date of service: 10/29/2023 Gilbert Paul MD [facility] Emergency department Note* Sharla Schulz RN - 10/29/2023 6:07 PM EDT Bed: E018 Expected date: Expected time: Means of arrival: Comments: 84 [facility]05-23-2024 Emergency department Note* Sharla Schulz RN [...] COPD exacerbation - was in obs in [place] 10/24-10/26 for COPD exacerbation. Now worsening. [facility] obs notes reviewed by me. Decreased breath [...] with dyspnea. Patient reports recent discharge from [facility] for similar presentation. Feels as [...] Laterality: N/A; Surgeon: Jihan Olivarez MD; Location: [facility] MAIN OR FINGER SURGERY 2007 [...] morning as needed. 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 Precontemplative regarding quitting tobacco/cocaine. Social Determinants of Health Financial Resource Strain: Not on file Food Insecurity: No Food Insecurity (10/26/2023) Received from [facility] Hunger Vital Sign Worried About Running Out of Food in the Last Year: Never true Ran Out of Food in the Last Year: Never true Transportation Needs: No Transportation Needs (10/26/2023) Received from [facility] PRAPARE - Transportation Lack of Transportation (Medical): No Lack of Transportation (Non-Medical): No Physical Activity: Not on file Stress: Not on file Social Connections: Not on file Intimate Partner Violence: Not At Risk (10/26/2023) Received from [facility] Humiliation, Afraid, Rape, and Kick questionnaire Fear of Current or Ex-Partner: No Emotionally Abused: No Physically Abused: No Sexually Abused: No Housing Stability: Low Risk (10/26/2023) Received from [facility] Housing Stability Vital Sign Unable to [...] decision making process. This note dictated using Bunchball voice recognition software. Attempts at proofreading were [...] reports baseline is 95-96% [facility] Physician Emergency department Note* Reji Al [...] COPD exacerbation - was in obs in [place] 10/24-10/26 for COPD exacerbation. Now worsening. [facility] obs notes reviewed by me. Decreased breath [...] severe COPD exacerbation. Reji Al MD 10/29/23 6275 [facility] Work Phone: [phone]) 639-547905-23-2024 Physician Emergency department Note* Elijah Kennedy MD - 10/29/2023 4:03 PM EDT EMERGENCY DEPARTMENT CHIEF COMPLAINT Shortness of Breath HPI Wolf Turcios is a 63 y.o. male with PMHx of COPD, HTN, TIA who presents with dyspnea. Patient reports recent discharge from [facility] for similar presentation. Feels as [...] Laterality: N/A; Surgeon: Jihan Olivarez MD; Location: [facility] MAIN OR FINGER SURGERY 2007 [...] morning as needed. 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 Precontemplative regarding quitting tobacco/cocaine. Social Determinants of Health Financial Resource Strain: Not on file Food Insecurity: No Food Insecurity (10/26/2023) Received from [facility] Hunger Vital Sign Worried About Running Out of Food in the Last Year: Never true Ran Out of Food in the Last Year: Never true Transportation Needs: No Transportation Needs (10/26/2023) Received from [facility] PRAPARE - Transportation Lack of Transportation (Medical): No Lack of Transportation (Non-Medical): No Physical Activity: Not on file Stress: Not on file Social Connections: Not on file Intimate Partner Violence: Not At Risk (10/26/2023) Received from [facility] Humiliation, Afraid, Rape, and Kick questionnaire Fear of Current or Ex-Partner: No Emotionally Abused: No Physically Abused: No Sexually Abused: No Housing Stability: Low Risk (10/26/2023) Received from [facility] Housing Stability Vital Sign Unable to [...] decision making process. This note dictated using Bunchball voice recognition software. Attempts at proofreading were made, but errors may occasionally still occur. Elijah Kennedy MD Resident 10/29/232002 [facility] Work Phone: 1(506) 429-301305-23-2024 NoteAcute Coronary Syndrome (ACS): Initial Evaluation and Management: [email or web address] [email or web address] [facility]05-23-2024 Emergency department Note* Maral Curiel RN - 10/29/2023 10:26 AM EDT Pt arrives via EMS from home for SOB, hx COPD. Pt received duoneb en route, reported improvement insx. Pt uses oxygen prn at home, SpO2 90-91% on RA in triage, reports baseline is 95-96% [facility]05-22-2024 Telephone encounter Note* Telephone Encounter - Amber Damon LPN - 10/28/2023 9:23 AM EDT Submitted PA using [employer] insurance card of file, PA came back as not needed. Called pt, he stated he has [employer] insurance, I did ask for his insurance info (PCN, BIN, GRP) in order to complete new PA. Pt requested I call back to get requested info. [facility]05-22-2024 Miscellaneous Notes* Telephone Encounter - Amber [...] have they tried/failed: n/a documented in this encounterMer[facility] Telephone encounter Note* Telephone Encounter - Bekah Lopez - 10/28/2023 8:08 AM EDT Patient called in and wanted to check status of Prior Auth [facility]05-21-2024 History of Present illness Narrative* Alfreda [...] 10/27/2023 10:00 AM EDT Josephine Jacobs CNP [facility] Hospitalists Progress Note Patient Name: Wolf [...] 10/26/2023 10:00 AM EDT Josephine Jacobs CNP [facility] Hospitalists Progress Note Patient Name: oWlf Turcios PCP: Ivonne Henry MD Perpetual Assessment: [...] Outside Records [] Family documented in this [id number] Hospital Discharge instructions * Discharge Instructions* Josephine Jacobs CNP - 10/27/2023 1:59 PM EDT * Discharge Instr - Care Coordination* Alfreda Wall RN - 10/26/2023 2:15 PM EDT Please call [facility] #[phone] to provide home nebulizer equipment. * Attachments The following attachments cannot be sent through Care Everywhere. * COPD: Exacerbation (Libyan) * COPD: Triggers: General Info (Libyan) documented in this [id number] Miscellaneous Notes* Significant Event - Josephine Jacobs CNP - 10/27/2023 1:00 PM EDT Messaged bedside RN and CM via Facebook chat. Patient has not utilized any of [...] Jacobs CNP - 10/27/2023 7:01 AM EDT XZRY-[id number] ENCOUNTER FOR HOME MEDICAL EQUIPMENT PATIENT: Wolf Turcios : 1960 Statement of Care: I certify that Wolf Turcios is under my care and that I, a Nurse Practitioner, had a tiem-sp-znnh encounter with this patient yesterday to evaluate and discuss the need for home medical equipment. I certify that based on the findings of this evaluation, which included but was not limited to the wmsl-dd-wvjy requirements, the following home medical equipment is [...] All other components within normal limits Narrative: [facility] has implemented the eGFR [...] All other components within normal limits Narrative: [facility] has implemented the eGFR calculation approach that does not have a coefficient for race that conforms to the NKF-ASN Task Force Recommendations. OBTAIN VENOUS BLOOD GASES AND PERFORM CBC AND DIFFERENTIAL Narrative: The following orders were created for panel order CBC w/ Diff. Procedure Abnormality Status --------- ------ CBC Auto Differential[[id number]] Final result Please view results for these [...] of complications. . . documented in this [id number] Note* Significant Event - Josephine Jacobs CNP - 10/27/2023 1:00 PM EDT Messaged bedside RN and CM via Facebook chat. Patient has not utilized any of [...] already been sent to patient's preferred pharmacy. [id number] Jovani Jacobs CNP [facility] Hospitalists Progress Note Patient Name: Wolf [...] Family AUTHENTICATED BY JOSEPHINE JACOBS, ON 10/27/2023 12:01:02[facility]05-21-2024 Note* Significant Event - Josephine Jacobs, [facility] - 10/27/2023 7:01 AM EDT QUET-IE-EIBI ENCOUNTER FOR HOME MEDICAL EQUIPMENT PATIENT: Wolf Turcios : 1960 Statement of Care: I certify that Wolf Turcios is under my care and that I, a Nurse Practitioner, had a znce-yt-yfpd encounter with this patient yesterday to evaluate and discuss the need for home medical equipment. I certify that based on the findings of this evaluation, which included but was not limited to the pvon-ud-kppc requirements, the following home medical equipment is [...] Signed by: Josephine Jacobs CNP on 10/27/2023 [id number] Note* Quick Note - Lisa Barnett CNP [...] appropriately, moves extremities x 4 in bed [facility] Work Phone: 1(413) 144-294405-20-2024 Consult note* Adriel Corona LSW - 10/26/2023 [...] Chart reviewed. No therapy orders atthis time. OPTOMETRIST PRESIDENT/PRACTICE OWNER met with pt at bedside and introduced role in dc planning. Demographic information including PCP and insurance coverage. PCP listed on facesheet. Pt reports he currently staying lives a friend in a private residence. Pt reports friends and family as support. Pt reports receiving servi luke such as meals on wheels from [employer].Pt reports hx of rehab experience. Pt has no DME atbaseline. Pt's states he is able to call himself at dc. Pt is medication adherent. He denies falls in the past 6 months. Pt denies cultural/spirituality beliefs. Pt reports family are aware of his wishes. Pt reports hx of constant chronic left leg pains and rated pain as 9. OPTOMETRIST PRESIDENT/PRACTICE OWNER will follow. Assessment and Background Information: Living [...] routine activities due to chronic pain:: Yes [id number] Consult note* Adriel Corona LSW - 10/26/2023 [...] Chart reviewed. No therapy orders atthis time. OPTOMETRIST PRESIDENT/PRACTICE OWNER met with pt at bedside and introduced role in dc planning. Demographic information including PCP and insurance coverage. PCP listed on facesheet. Pt reports he currently staying lives a friend in a private residence. Pt reports friends and family as support. Pt reports receiving servi luke such as meals on wheels from [employer].Pt reports hx of rehab experience. Pt has no DME atbaseline. Pt's states he is able to call himself at mt. Pt is medication adherent. He denies falls in the past 6 months. Pt denies cultural/spirituality beliefs. Pt reports family are aware of his wishes. Pt reports hx of constant chronic left leg pains and rated pain as 9. OPTOMETRIST PRESIDENT/PRACTICE OWNER will follow. Assessment and Background Information: Living [...] to chronic pain:: Yes documented in this [id number] NoteKelgabino Jacobs, LAM [facility] Hospitalists Discharge Summary Wolf Turcios Admit [...] Trelegy Ellipta 100-62.5-25 mcg Dsdv Generic drug: acdtbewxgxi-ekpnjrgeu-qmsyvtci Inhale 1 puff daily . Quantity: 28 [...] Ox3. Answers questions a (more content not included)...[facility]05-20-2024 Hospital course Narrative* Josephine Jacobs CNP - 10/26/2023 12:26 PM EDT Images from the original note were not included. Josephine Jacobs CNP [facility] Hospitalists Discharge Summary Wolf Turcios Admit [...] Trelegy Ellipta 100-62.5-25 mcg Dsdv Generic drug: nbxkyhpteoe-fatvanmyu-jhrsheoj Inhale 1 puff daily . Quantity: 28 [...] on Discharge: 38 mins documented in this [id number] Jovani Jacobs CNP [facility] Hospitalists Progress Note Patient Name: Wolf [...] AUTHENTICATED BY JOSEPHINE JACOBS, ON 10/27/2023 07:38:18[facility]05-20-2024 Note* Plan of Care - Harinder Gil RN - 10/26/2023 12:16 AM EDT Plan of care initiated [id number] Emergency department Note* Leigh Reyes RN - 10/25/2023 9:47 PM EDT Patient resting comfortably with eyes open at this time. Patient updated on plan of care, restroom help and PO intake offered at this time. Patient denies additional needs. Call light in reach, bed in low position. [id number] Emergency department Note* Leigh Reyes RN - 10/25/2023 9:47 PM EDT Patient resting comfortably with eyes open at this time. Patient updated on plan of care, restroom help and PO intake offered at this time. Patient denies additional needs. Call light in reach, bed in low position. * Flores Almanza - 10/25/2023 9:15 PM EDT [facility] to write orders for ken [phone] * [...] ED attending, Dr. Cabral. Will admit to [facility] KEN. Please see hospital attending physician note for further information and final disposition of this patient. Impressions: 1. COPD exacerbation (HCC) 2. Increased sputum production 3. Tachypnea MDM Data ED Course as of 10/25/232114 Sun October 25, 20232112 Spoke with [facility], agreeable for admission [RO] ED Course User Index [RO] Mirta Christopher PA-C [facility] Data: External Documents/Labs Reviewed, ECG interpreted, X-ray interpretation reviewed, Discussed with consultants/staff, and Shared decision making utilized Previous Records Reviewed . . Labs Reviewed BASIC METABOLIC PANEL - Abnormal; Notable for the following components: Result Value Glucose 117 (*) Calcium 8.2 (*) All other components within normal limits Narrative: [facility] has implemented the eGFR calculation approach [...] All other components within normal limits Narrative: [facility] has implemented the eGFR calculation approach that does not have a coefficient for race that conforms to the NKF-ASN Task Force Recommendations. OBTAIN VENOUS BLOOD GASES AND PERFORM CBC AND DIFFERENTIAL Narrative: The following orders were created for panel order CBC w/ Diff. Procedure Abnormality Status --------- ------ CBC Auto Differential[[id number]] Final result Please view results for these [...] pneuomia and emphysema Cocaine abuse in remission ([facility]) None since 2015- now on suboxone COPD (chronic obstructive pulmonary disease) ([facility]) Multiple ED visits- last 08/2020 Edema BLE + ED visit 07/25/20 Emphysema of lung ([facility]) Severe Essential hypertension 01/10/2017 Hyperlipidemia Neck pain Peptic ulcer disease PUD (peptic ulcer disease) Sepsis due to pneumonia ([facility]) 04/2020 Multiple ED visits- last 08/2020. Saw Pulm Dr Hollis while IP 04/20/20 Thoracic aortic aneurysm ([facility]) States d/t drug overdose TIA (transient ischemic attack) Tobacco abuse Past Surgical History Past Surgical History: Procedure Laterality Date ARTHROPLASTY HIP TOTAL Right 01/28/2021 Procedure: RIGHT TOTAL HIP ARTHROPLASTY; Surgeon: Teresa Terry MD; Location: [facility] OR; Service: Orthopedic EYE SURGERY Right Laser [...] expedite correspondence this note was generated by [employer] voice recognition software. This note was partially [...] of arrival: Comments: M16/fiers documented in this [id number] History and physical note* Barbara Layton DO - 10/25/2023 9:19 PM EDT Barbara Layton DO [facility] Hospitalists History and Physical Patient Name: [...] on suboxone COPD (chronic obstructive pulmonary disease) ([facility]) Multiple ED visits- last 08/2020 Edema BLE + ED visit 07/25/20 Emphysema of lung ([facility]) Severe Essential hypertension 01/10/2017 Hyperlipidemia Neck pain Peptic ulcer disease PUD (peptic ulcer disease) Sepsis due to pneumonia ([facility]) 04/2020 Multiple ED visits- last 08/2020. Saw Pulm Dr Hollis while IP 04/20/20 Thoracic aortic aneurysm ([facility]) States d/t drug overdose TIA (transient ischemic attack) Tobacco abuse Past Surgical History: Procedure Laterality Date ARTHROPLASTY HIP TOTAL Right 01/28/2021 Procedure: RIGHT TOTAL HIP ARTHROPLASTY; Surgeon: Teresa Terry MD; Location: [facility] OR; Service: Orthopedic EYE SURGERY Right Laser [...] see assessment and plan for further details. [facility] Work Phone: 1(510) 569-446405-19-2024 NoteEmma Marjan Layton DO [facility] Hospitalists History and Physical Patient Name: [...] pneuomia and emphysema Cocaine abuse in remission ([facility]) None since 2015- now on suboxone COPD (chronic obstructive pulmonary disease) ([facility]) Multiple ED visits- last 08/2020 Edema BLE + ED visit 07/25/20 Emphysema of lung ([facility]) Severe Essential hypertension 01/10/2017 Hyperlipidemia Neck pain Peptic ulcer disease PUD (peptic ulcer disease) Sepsis due to pneumonia ([facility]) 04/2020 Multiple ED visits- last 08/2020. Saw Pulm Dr Hollis while IP 04/20/20 Thoracic aortic aneurysm ([facility]) States d/t drug overdose TIA (transient ischemic attack) Tobacco abuse Past Surgical History: Procedure Laterality Date ARTHROPLASTY HIP TOTAL Right 01/28/2021 Procedure: RIGHT TOTAL HIP ARTHROPLASTY; Surgeon: Teresa Terry MD; Location: [facility] OR; Service: Orthopedic EYE SURGERY Right Laser [...] [15-32] 20 BP: (10 (more content not included)...[facility]05-19-2024 History and physical note* Barbara Layton DO - 10/25/2023 9:19 PM EDT Barbara Layton DO [facility] Hospitalists History and Physical Patient Name: [...] pneuomia and emphysema Cocaine abuse in remission ([facility]) None since 2015- now on suboxone COPD (chronic obstructive pulmonary disease) ([facility]) Multiple ED visits- last 08/2020 Edema BLE + ED visit 07/25/20 Emphysema of lung ([facility]) Severe Essential hypertension 01/10/2017 Hyperlipidemia Neck pain Peptic ulcer disease PUD (peptic ulcer disease) Sepsis due to pneumonia ([facility]) 04/2020 Multiple ED visits- last 08/2020. Saw Pulm Dr Hollis while IP 04/20/20 Thoracic aortic aneurysm ([facility]) States d/t drug overdose TIA (transient ischemic attack) Tobacco abuse Past Surgical History: Procedure Laterality Date ARTHROPLASTY HIP TOTAL Right 01/28/2021 Procedure: RIGHT TOTAL HIP ARTHROPLASTY; Surgeon: Teresa Terry MD; Location: [facility] OR; Service: Orthopedic EYE SURGERY Right Laser [...] plan for further details. documented in this [id number] Emergency department Note* Flores Almanza - 10/25/2023 9:15 PM EDT copc to write orders for [id number] [phone] [id number] Note* ED Attestation Note - Alyce Cabral [...] All other components within normal limits Narrative: [facility] has implemented the eGFR [...] All other components within normal limits Narrative: [facility] has implemented the eGFR calculation approach that does not have a coefficient for race that conforms to the NKF-ASN Task Force Recommendations. OBTAIN VENOUS BLOOD GASES AND PERFORM CBC AND DIFFERENTIAL Narrative: The following orders were created for panel order CBC w/ Diff. Procedure Abnormality Status --------- ------ CBC Auto Differential[[id number]] Final result Please view results for these [...] acknowledged its risk of complications. . . [facility] Work Phone: 1(380) 169-998205-19-2024 Emergency department Note* Leigh Reyes RN - 10/25/2023 7:24 PM EDT This RN just took over care from previous shift.Patient resting comfortably with eyes open at this time. Patient updated on plan of care, restroom help offered at this time. Patient denies additionalneeds. Call light in reach, bed in low position. [id number] Physician Emergency department Note* Mirta Christopher PA-C [...] ED attending, Dr. Cabral. Will admit to [facility]. Please see hospital attending physician note for further information and final disposition of this patient. Impressions: 1. COPD exacerbation (HCC) 2. Increased sputum production 3. Tachypnea MDM Data ED Course as of 10/25/232114 Sun October 25, 20232112 Spoke with [facility], agreeable for admission [RO] ED Course User Index [RO] Mirta Christopher PA-C [facility] Data: External Documents/Labs Reviewed, ECG interpreted, X-ray interpretation reviewed, Discussed with consultants/staff, and Shared decision making utilized Previous Records Reviewed . . Labs Reviewed BASIC METABOLIC PANEL - Abnormal; Notable for the following components: Result Value Glucose 117 (*) Calcium 8.2 (*) All other components within normal limits Narrative: [facility] has implemented the eGFR calculation approach [...] All other components within normal limits Narrative: [facility] has implemented the eGFR calculation approach that does not have a coefficient for race that conforms to the NKF-ASN Task Force Recommendations. OBTAIN VENOUS BLOOD GASES AND PERFORM CBC AND DIFFERENTIAL Narrative: The following orders were created for panel order CBC w/ Diff. Procedure Abnormality Status --------- ------ CBC Auto Differential[[id number]] Final result Please view results for these [...] pneuomia and emphysema Cocaine abuse in remission ([facility]) None since 2015- now on suboxone COPD (chronic obstructive pulmonary disease) ([facility]) Multiple ED visits- last 08/2020 Edema BLE + ED visit 07/25/20 Emphysema of lung ([facility]) Severe Essential hypertension 01/10/2017 Hyperlipidemia Neck pain Peptic ulcer disease PUD (peptic ulcer disease) Sepsis due to pneumonia ([facility]) 04/2020 Multiple ED visits- last 08/2020. Saw Pulm Dr Hollis while IP 04/20/20 Thoracic aortic aneurysm ([facility]) States d/t drug overdose TIA (transient ischemic attack) Tobacco abuse Past Surgical History Past Surgical History: Procedure Laterality Date ARTHROPLASTY HIP TOTAL Right 01/28/2021 Procedure: RIGHT TOTAL HIP ARTHROPLASTY; Surgeon: Teresa Terry MD; Location: [facility] OR; Service: Orthopedic EYE SURGERY Right Laser [...] expedite correspondence this note was generated by [employer] voice recognition software. This note was partially created using voice recognition software and is inherently subject to errors including those of syntax and sound-alike substitutions which may escape proofreading. In such instances, original meaning may be extrapolated by contextual derivation. Mirta Christopher PA-C 10/25/232114 [facility] Work Phone: [phone] Emergency department Note* Janusz Parmar RN - 10/25/2023 6:24 PM EDT Pt presents to ED for c.o SOB x2-3 days. Pt states symptoms unrelieved with inhaler and breathing treatments at home. Pt arrives to ED via EMS with duoneb in progress. EMS states on arrival pt had diminished breath sounds bilaterally with rhonchi and SpO2 at 86%. [id number] Emergency department Note* Christina Obregon RN - 10/25/2023 6:22 PM EDT Bed: 49 Expected date: Expected time: Means of arrival: Comments: M16/fiers [id number] Telephone encounter Note* Telephone Encounter - [place] Mike - 10/22/2023 9:45 AM EDT Pt [...] needs a PA Prescription Insurance Name: - [place] Insurance phone number: - n/a Any alternative medications covered on plan? (this is for covered alternative or not covered): -n/a If patient is calling: What other medications have they tried/failed: n/a [facility]05-14-2024 Telephone encounter Note* Telephone Encounter - Kiersten Cerna RN - 10/20/2023 11:15 AM EDT Called and let patient know that since he has established with an eye doctor that we will leave further prescriptions to them. Advised that if he needs any refills for eye drops he should reach out to their office. Patient expressed understanding and agreement. [facility]05-14-2024 Miscellaneous Notes* Telephone Encounter - Kiersten [...] had an eye exam completed yesterday at [facility]. Patient think they [...] settling. He saidthat he just moved from [place] to [place] and needs to have his medications sent to a pharmacy in [place]. * Telephone Encounter - Kiersten Cerna RN [...] that referral. Thank you! [facility] Telephone encounter Note* Telephone Encounter - Flores Bruce MD - 10/20/2023 11:06 AM EDT Covering for Dr. Henry. So seems like patient has established with eye doctor. Will leave further prescriptions to them. - Dionte Martin [facility] Work Phone: 1([phone]) 485-349405-14-2024 Telephone encounter Note* Telephone Encounter - Kiersten [...] had an eye exam completed yesterday at [facility]. Patient think they might take over prescribing the eye drops if it is necessary. [facility]* Addendum Note - Ivonne Henry MD - 10/20/2023 10:26 AM EDTAddended by: IVONNE HENRY on: 10/20/2023 10:26 AM Modules accepted: [facility]* Addendum Note - Ivonne Henry MD - 10/20/2023 10:26 AM EDTAddended by: IVONNE HENRY on: 10/20/2023 10:26 AM Modules accepted: [facility]* Addendum Note - Ivonne Henry MD - 10/20/2023 10:26 AM EDTAddended by: IVONNE HENRY on: 10/20/2023 10:26 AM Modules accepted: [facility]* Addendum Note - Ivonne Henry MD - 10/20/2023 10:26 AM EDTAddended by: IVONNE HENRY on: 10/20/2023 10:26 AM Modules accepted: Orders [facility]05-14-2024 Telephone encounter Note* Telephone Encounter - [...] continuing as a bridge until ophtho evaluation. [facility]05-13-2024 Note* Addendum Note - Ivonne Henry MD - 10/19/2023 6:27 PM EDTAddended by: IVONNE HENRY on: 10/19/2023 06:27 PM Modules accepted: Orders [facility]05-13-2024 Note* Addendum Note - Ivonne Henry MD - 10/19/2023 6:27 PM EDTAddended by: IVONNE HENRY on: 10/19/2023 06:27 PM Modules accepted: [facility]* Addendum Note - Ivonne Henry MD - 10/19/2023 6:27 PM EDTAddended by: IVONNE HENRY on: 10/19/2023 06:27 PM Modules accepted: [facility]* Addendum Note - Ivonne Henry MD - 10/19/2023 6:27 PM EDTAddended by: IVONNE HENRY on: 10/19/2023 06:27 PM Modules accepted: Orders [facility]05-13-2024 Note* Addendum Note - Ivonne Henry MD - 10/19/2023 6:27 PM EDTAddended by: IVONNE HENRY on: 10/19/2023 06:27 PM Modules accepted: Orders [facility]05-13-2024 Note* Addendum Note - Ivonne Henry MD - 10/19/2023 6:27 PM EDTAddended by: IVONNE HENRY on: 10/19/2023 06:27 PM Modules accepted: Orders [facility]05-13-2024 Miscellaneous Notes* Addendum Note - Ivonne [...] settling. He saidthat he just moved from [place] to [place] and needs to have his medications sent to a pharmacy in [place]. * Telephone Encounter - Kiersten Crena RN - 10/19/2023 1:52 PM EDT Attempted [...] that referral. Thank you! documented in this encounterMer[facility] Note* Addendum Note - Kiersten Cerna RN - 10/19/2023 4:54 PM EDTAddended by: KIERSTEN CERNA on: 10/19/2023 04:54 PM Modules accepted: [facility]* Addendum Note - Kiersten Cerna RN - 10/19/2023 4:54 PM EDTAddended by: KIERSTEN CERNA on: 10/19/2023 04:54 PM Modules accepted: [facility]* Addendum Note - Kiersten Cerna RN - 10/19/2023 4:54 PM EDTAddended by: KIERSTEN CERNA on: 10/19/2023 04:54 PM Modules accepted: Orders [facility]05-13-2024 Note* Addendum Note - Kiersten Cerna RN - 10/19/2023 4:54 PM EDTAddended by: KIERSTEN CERNA on: 10/19/2023 04:54 PM Modules accepted: Orders [facility]05-13-2024 Note* Addendum Note - Kiersten Cerna RN - 10/19/2023 4:54 PM EDTAddended by: KIERSTEN CERNA on: 10/19/2023 04:54 PM Modules accepted: Orders [facility]05-13-2024 Note* Addendum Note - Kiersten Cerna RN - 10/19/2023 4:54 PM EDTAddended by: KIERSTEN CERNA on: 10/19/2023 04:54 PM Modules accepted: Orders [facility]05-13-2024 Telephone encounter Note* Telephone Encounter - Kiersten Cerna RN - 10/19/2023 4:33 PM EDT Called and spoke to patient today. Discussed results and recommendations from PCP. Patient would like to do pulmonary rehab, but would like to wait a couple months since he is still settling. He saidthat he just moved from [place] to [place] and needs to have his medications sent to a pharmacy in [place]. [facility]05-13-2024 Telephone encounter Note* Telephone Encounter - Kiersten Cerna RN - 10/19/2023 1:52 PM EDT Attempted to reach patient twice, states wireless caller is not available, please try again later. Will follow up later this afternoon. [facility]05-13-2024 Telephone encounter Note* Telephone Encounter - Kiersten Cerna RN - 10/19/2023 1:51 PM EDT ----- Message from Ivonne Henry MD sent at 10/19/2023 1:35 PM EDT ----- Please let Wofl know that his breathing tests confirm his diagnosis of COPD. It will be important for him to stay on his inhalers. He is interested, we can also refer him to Pulmonary rehab to work on increasing his breathing capacity. Let me know if he is interested in I am happy to place that referral. Thank you! [facility]04-29-2024 Evaluation + Plan note* Assessment & [...] to PCAM clinic to discuss re initiation/titration [facility]04-29-2024 Miscellaneous Notes* Assessment & Plan Note [...] Ivonne Henry MD - 10/02/2023 3:24 PM EDT Associated Problem(s): Other emphysema Updating PFTs and CT lung cancer screening documented in this encounter[facility] Evaluation + Plan note* Assessment & Plan Note - Ivonne Henry MD - 10/05/2023 4:57 PM EDTAssociated Problem(s): BPH (benign prostatic hyperplasia) Continuing Flomax. After shared decision making, elected to pursue PSA screening. This was found ria elevated and will repeat in 6-8 weeks. If still elevated, plan for urology referral [facility]04-29-2024 Evaluation + Plan note* Assessment & Plan Note - Ivonne Henry MD - 10/05/2023 4:56 PM EDTAssociated Problem(s): Essential hypertension Blood pressure is well controlled.Updating chem 6. Continuing current regimen. [facility] Telephone encounter Note* Telephone Encounter - Latisha Buchanan RN - 10/05/2023 4:47 PM EDT Spoke with patient, he voices understanding. [facility]04-29-2024 Miscellaneous Notes* Telephone Encounter - Latisha Buchanan RN - 10/05/2023 4:47 PM EDT Spoke with patient, he voices understanding. * Telephone Encounter - Ivonne Henry MD - 10/05/2023 4:38 PM EDT Please, let Mr. Turcios know that I have discussed his case with Dr. Alfaro from [facility] clinic. He is working to get [...] center. He should receivecall to schedule with [facility]. He states he is almost out [...] to discuss next steps. documented in this encounterMer[facility]04[facility] Evaluation + Plan note* Assessment & Plan Note - Ivonne Henry MD - 10/05/2023 4:46 PM EDTAssociated Problem(s): Cocaine abuse in remission Stable, encouraged sustained remission [facility]04-29-2024 Evaluation + Plan note* Assessment & Plan Note - Ivonne Henry MD - 10/05/2023 4:45 PM EDTAssociated Problem(s): Tobacco abuse Tobacco Cessation Plan: I provided tobacco cessation counseling. He is not ready to quit. Counseling was provided. [facility]04-29-2024 Evaluation + Plan note* Assessment & Plan Note - Ivonne Henry MD - 10/05/2023 4:44 PM EDTAssociated Problem(s): DU (perforated duodenal ulcer) Stable, continue PPI [facility]04-29-2024 Evaluation + Plan note* Assessment & Plan Note - Ivonne Henry MD - 10/05/2023 4:42 PM EDTAssociated Problem(s): PUD (peptic ulcer disease) Continue omeprazole, updating H pylori testing. [facility] Tele[facility] encounter Note* Telephone Encounter - Ivonne Henry MD - 10/05/2023 4:38 PM EDT Please, let Mr. Turcios know that I have discussed his case with Dr. Alfaro from [facility] clinic. He is working to get him in later this week or next and we have agreed to wait until he gets seen to adjusthis neuropathic agents further as we anticipate starting suboxone at that time. [facility]04-29-2024 Telephone encounter Note* Telephone Encounter - Latisha Buchanan RN - 10/05/2023 9:25 AM EDT Spoke with patient, he is aware of results/recommendations. Provided number for patient to schedule PFT, Lung Ca Screening, and spine center. He should receivecall to schedule with [facility]. He states he is almost out [...] to see urology to discuss next steps. 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 Nystatin [id number] UNIT/ML oral suspension Swish and swallow 10 [...] this visit. Immunization History Administered Date(s) Administered [id number] COVID-19 monovalent vaccine, mRNA, Pfizer, 0.3 ML [...] up regarding physical. Ivonne Henry MD Clinical Car Repairer Division of General Internal Medicine [facility] Instructions* Patient Instructions* Ivonne Henry MD - 10/02/2023 2:40 PM EDT - Get updated labs on 2nd floor - PFTs ordered - PCAM consult for addiction medicine - Spine center referral - Lung cancer screening - Ophthalmology consult [facility] in this [facility] Note* Quick Note - Inge Chavez [...] verbalizes understanding.Peripheral IV removed.Patient has all belongings. [id number] Miscellaneous Notes* Quick Note - Inge Chavez [...] Dual RN skin check off with: Dannie BELLadventure guide Consult needed?: no Visitor Identified and documented: [...] No acute cardiopulmonary process identified. Workstation ID: [id number] Recent Results (from the past 12 hour(s)) [...] ECG and sinus tachycardia documented in this [id number] Consult note* KIYA Aguirre - 08/21/2021 11:18 AM EDTAssociated Order(s): IP CONSULT TO CARE MANAGEMENT CLAUDIO consulted to assist with transport home for pt. Pt can utilize his insurance by calling . CLAUDIO updated treatment team. [id number] Consult note* KIYA Aguirre - 08/21/2021 11:18 AM EDT Associated Order(s): IP CONSULT TO CARE MANAGEMENT CLAUDIO consulted to assist with transport home for pt. Pt can utilize his insurance by calling . CLAUDIO updated treatment team. documented in this [id number] Hospital course Narrative* Pablo Davila, DO - 08/21/2021 10:27 AM EDT Images from the original note were not included. [facility] DISCHARGE SUMMARY Wolf Turcios Admitted: 08/19/2021 Discharge [...] as: AMMY BONILLA Physician(s) Follow Up: Generic [facility] Hospital[facility] [address] [place] [address] Follow up Please call for hospital related [...] on 08/21/21, 10:27 AM documented in this [id number] History of Present illness Narrative* Pablo Davila DO - 08/21/2021 6:32 AM EDT [facility] PROGRESS NOTE Assessment and Plan Wolf Turcios [...] Davila DO - 08/20/2021 6:35 AM EDT [facility] PROGRESS NOTE Assessment and Plan Wolf Turcios [...] Radiology, Medications and Transcriptions documented in this [id number] Note* Quick Note - Fabiola Armstrong RN - 08/20/2021 12:43 AM EDT Patient oriented to the 9th floor: yes Patient oriented to room and call system: yes Appropriate Wrist bands present: yes Dual RN skin check off with: Dannie BELLadventure guide Consult needed?: no Visitor Identified and documented: no visitor Patient belongings documented: yes What Belongings are present?: Clothing, cellphone Discharge Plan reviewed with patient: yes How will the patient get home when discharged: Care Management consult needed?: no [id number] Emergency department Note* Gregory Harrington RN - 08/19/2021 8:57 PM EDT Awaiting CTPA result before bringing up [id number] Emergency department Note* Gregory Harrington RN - 08/19/2021 8:57 PM EDT Awaiting CTPA result before bringing up * Zoe Moreira CNP - 08/19/2021 7:10 PM EDT ED PROVIDER NOTE [facility] ONCOLOGY/SURGERY NAME: Wolf Turcios AGE: 61 y.o. : 1960 VISIT DATE: 08/19/2021 CSN: [id number] PCP: Karma Mark CNP Chief Complaint Patient [...] pneuomia and emphysema Cocaine abuse in remission ([facility]) None since 2015- now on suboxone COPD (chronic obstructive pulmonary disease) ([facility]) Multiple ED visits- last 08/2020 Edema BLE + ED visit 07/25/20 Emphysema of lung ([facility]) Severe Essential hypertension 01/10/2017 Hyperlipidemia Neck pain Peptic ulcer disease PUD (peptic ulcer disease) Sepsis due to pneumonia ([facility]) 04/2020 Multiple ED visits- last 08/2020. Saw Pulm Dr Hollis while IP 04/20/20 Thoracic aortic aneurysm ([facility]) States d/t drug overdose TIA (transient ischemic attack) Tobacco abuse Past Surgical History: Procedure Laterality Date ARTHROPLASTY HIP TOTAL Right 01/28/2021 Procedure: RIGHT TOTAL HIP ARTHROPLASTY; Surgeon: Teresa Terry MD; Location: [facility] OR; Service: Orthopedic EYE SURGERY Right Laser [...] No acute cardiopulmonary process identified. Workstation ID: [id number] Procedures MDM Very pleasant 61-year-old male history [...] to plan of care. Checkout given to [facility]. . Clinical Impression: 1. Acute exacerbation of [...] available in inpatient encounters. Please contact a naphtha washing system operator. Zoe Moreira CNP 08/19/21 0424 * Fahad Bedolla RN - 08/19/2021 5:01 PM EDT Pt c/o SOB that started 2 days ago and has been worsening since, pt has hx of COPD, also states he has a lot of congestion * Mandy Calle RN - 08/19/2021 5:01 PM EDT Bed: 46 Expected date: Expected time: Means of arrival: Comments: M815, SOB, perla documented in this [id number] Physician Emergency department Note* Zoe Moreira CNP - 08/19/2021 7:10 PM EDT ED PROVIDER NOTE [facility] ONCOLOGY/SURGERY NAME: Wolf Turcios AGE: 61 y.o. : 1960 VISIT DATE: 08/19/2021 CSN: [id number] PCP: Karam Mark CNP Chief Complaint Patient presents with [...] on suboxone COPD (chronic obstructive pulmonary disease) ([facility]) Multiple ED visits- last 08/2020 Edema BLE + ED visit 07/25/20 Emphysema of lung ([facility]) Severe Essential hypertension 01/10/2017 Hyperlipidemia Neck pain Peptic ulcer disease PUD (peptic ulcer disease) Sepsis due to pneumonia ([facility]) 04/2020 Multiple ED visits- last 08/2020. Saw Pulm Dr Hollis while IP 04/20/20 Thoracic aortic aneurysm ([facility]) States d/t drug overdose TIA (transient ischemic attack) Tobacco abuse Past Surgical History: Procedure Laterality Date ARTHROPLASTY HIP TOTAL Right 01/28/2021 Procedure: RIGHT TOTAL HIP ARTHROPLASTY; Surgeon: Teresa Terry MD; Location: [facility] OR; Service: Orthopedic EYE SURGERY Right Laser [...] Ref Range Extra Tube Hold for add-ons. Mnuoz Top Result Value Ref Range Extra Tube [...] No acute cardiopulmonary process identified. Workstation ID: [id number] Procedures MDM Very pleasant 61-year-old male history [...] to plan of care. Checkout given to [facility]. . Clinical Impression: 1. Acute exacerbation of [...] available in inpatient encounters. Please contact a naphtha washing system operator. Zoe Moreira CNP 08/19/21 [id number] [facility] Work Phone: [phone]) 761-511103-14-2022 History and physical note* Vishal Valentin MD - 08/19/2021 6:54 PM EDT [facility] HISTORY AND PHYSICAL Patient Name: Wolf Turcios : 1960 MR #: [id number] Admit Date: 08/19/2021 Physicians: Karma Mark CNP (Family); No ref. provider found (Referring) Wolf Turcios is a 61 y.o. male patient of Karma Dani Thomas, VOCATIONAL REHABILITATION SUPERVISOR with history of COPD, hypertension, smoking presented [...] pneuomia and emphysema Cocaine abuse in remission ([facility]) None since 2015- now on suboxone COPD (chronic obstructive pulmonary disease) ([facility]) Multiple ED visits- last 08/2020 Edema BLE + ED visit 07/25/20 Emphysema of lung ([facility]) Severe Essential hypertension 01/10/2017 Hyperlipidemia Neck pain Peptic ulcer disease PUD (peptic ulcer disease) Sepsis due to pneumonia ([facility]) 04/2020 Multiple ED visits- last 08/2020. Saw Pulm Dr Hollis while IP 04/20/20 Thoracic aortic aneurysm ([facility]) States d/t drug overdose TIA (transient ischemic attack) Tobacco abuse Past Surgical History Past Surgical History: Procedure Laterality Date ARTHROPLASTY HIP TOTAL Right 01/28/2021 Procedure: RIGHT TOTAL HIP ARTHROPLASTY; Surgeon: Teresa Terry MD; Location: [facility] OR; Service: Orthopedic EYE SURGERY Right Laser [...] 08/19/21 7:51 PM Transcriptions 08/19/21 7:51 PM [id number] History and physical note* Vishal Valentin MD - 08/19/2021 6:54 PM EDT [facility] HIST[facility] AND PHYSICAL Patient Name: Wolf Trucios : 1960 MR #: [id number] Admit Date: 08/19/2021 Physicians: Karma Mark CNP [...] pneuomia and emphysema Cocaine abuse in remission ([facility]) None since 2015- now on suboxone COPD (chronic obstructive pulmonary disease) ([facility]) Multiple ED visits- last 08/2020 Edema BLE + ED visit 07/25/20 Emphysema of lung ([facility]) Severe Essential hypertension 01/10/2017 Hyperlipidemia Neck pain Peptic ulcer disease PUD (peptic ulcer disease) Sepsis due to pneumonia ([facility]) 04/2020 Multiple ED visits- last 08/2020. Saw Pulm Dr Hollis while IP 04/20/20 Thoracic aortic aneurysm ([facility]) States d/t drug overdose TIA (transient ischemic attack) Tobacco abuse Past Surgical History Past Surgical History: Procedure Laterality Date ARTHROPLASTY HIP TOTAL Right 01/28/2021 Procedure: RIGHT TOTAL HIP ARTHROPLASTY; Surgeon: Teresa Terry MD; Location: [facility] OR; Service: Orthopedic EYE SURGERY Right Laser [...] Transcriptions 08/19/21 7:51 PM documented in this [id number] Note* ED Attestation Note - Paige Perla [...] No acute cardiopulmonary process identified. Workstation ID: [id number] Recent Results (from the past 12 hour(s)) [...] Acid 1.6 0.6 - 2.0 mmol/L . [facility] Work Phone: [phone] Note* ED Procedure Note - Paige Perla [...] Clinical impression: abnormal ECG and sinus tachycardia [id number] Emergency department Note* Fahad Bedolla RN - 08/19/2021 5:01 PM EDT Pt c/o SOB that started 2 days ago and has been worsening since, pt has hx of COPD, also states he has a lot of congestion [id number] Emergency department Note* Mandy Calle RN - 08/19/2021 5:01 PM EDT Bed: 46 Expected date: Expected time: Means of arrival: Comments: [id number] patel [id number] History of Present illness Narrative* Elpidio Schmitt [...] co rrespondence this note was generated by Offer[employer] voice recognition software. Some grammatical or spelling errors may occur using the system. documented in this [id number] History of Present illness Narrative* Janusz Myrick [...] Essential hypertension COPD (chronic obstructive pulmonary disease) ([facility]) Bilateral hip pain Tobacco use Thoracic aortic aneurysm, without rupture ([facility]) Hydrocele Acute respiratory failure ([facility]) Sepsis ([facility]) Pneumonia Opioid dependence ([facility]) Primary osteoarthritis of right hip Illiterate Homeless Status post right hip replacement COPD exacerbation ([facility]) Objective General: The patient is pleasant, cooperative, [...] expedite correspondence this note was generated by Offer[employer] voice recognition software. Somegrammatical or spelling errors may occur using the system. documented in this [id number] History of Present illness Narrative* Teresa Terry MD - 03/15/2021 10:07 AM EDT [facility] [address] [place] [address] Patient Name: Wolf Turcios Patient Age: 60 [...] walking. He is planning on moving to [facility] tomorrow with his girlfriend. We advised him to continue his hip flexion precautions for additional 6 weeks. He is also advised to have his hip checked at least yearly. He can do that here or in [place]. Teresa Terry MD Note: To expedite correspondence this note was generated by Offer[employer] voice recognition software. Somegrammatical or spelling errors may occur using the system. documented in this [id number] History of Present illness Narrative* Teresa Terry MD - 02/15/2021 10:29 AM EDT [facility] [address] [place] [id number] Patient Name: Wolf Turcios Patient Age: 60 [...] expedite correspondence this note was generated by Offerpop voice recognition software. Somegrammatical or spelling errors may occur using the system. documented in this [id number] History of Present illness Narrative* Jihan Orozco PA-C - 02/08/2021 9:00 AM EDT [facility] [address] [place] [address] Patient Name: Wolf Turcios Patient Age: 60 [...] Date: 02/05/2021 6:11 PM Patient Status: Emergency Economics Teacher: Coby Elizalde, RVT, RDMS Referring Physician: ACE Burgess TIMOTHY, ; Indications M79.604 - Pain in right leg Procedure Description 06299 Duplex examination using B-mode, color and spectral [...] expedite correspondence this note was generated by Offerpop voice recognition software. Somegrammatical or spelling errors may occur using the system. documented in this [id number] History of Present illness Narrative* Nuzhat Banks RN - 01/30/2021 7:45 AM EDT 01-30-2021 745 AM Patient discharged last evening. [facility]. Routed note to intake [facility]. * Tamera Rivera RN - 01/29/2021 11:20 AM EDT 01/29/2021 11:20am PAS verified benefits: HOME HEALTH BENEFITS: [facility] MEDICAID COMMUNITY PLAN, NO DED NO OOP COVERAGE 100% 01/29/2021 12:12pm Spoke with care management RN and anticipated discharge is for today. [facility] order in for SN services. Patient is s/p R ISABEL. Dr. Teresa Zurita to follow for [facility]. Spoke with patient regarding [facility] referral for SN, offered and agreeable to [facility] services. Reviewed demographics and insurance. Discussed [facility] expectations and all questions answered. Patient request staff call a day ahead for scheduling. Services Provided : SN Services ordered by their physician review: Yes Patient agreeable to the services that have been ordered: Yes Demographics: Verified [facility] [address] [place] [address] Where will patient receive services?: Home Home What is the best number to reach the patient?: [phone] Secondary Number?: Emergency contact: Day ( daughter) [phone] Does the patient prefer a phone call or text message? Phone PCP/Following Physician: Dr. Teresa Terry [phone] to follow for [facility] order signed: Yes signed Caregiver/Teachable Caregiver (Relationship, [...] or BWC claim: N/A documented in this [id number] Miscellaneous Notes* Addendum Note - Annetta Vance CRNA - 01/29/2021 9:52 AM EDT Addendum created 01/29/21951 by Annetta Cassie Synk, HOME HEALTH RN Cosign clinical note documented in this [id number] Procedure anesthesia Narrative * Procedure Summary Procedure [...] George Fam II documented in this encounter [id number] Surgical operation note* Anesthesia Postprocedure Evaluation - [...] and timeout performed Procedure Monitoring: heart rate, cardiac technician, pulse oximetry and BP Patient sedated with [...] with: patient Plan discussed with: [facility] RN Physical Exam Airway Mallampati: II Cardiovascular - [...] Other Positive: substance abuse documented in this [id number] Miscellaneous Notes* Addendum Note - Jihan Orozco [...] PM Modules accepted: Orders documented in this [id number] Miscellaneous Notes* Addendum Note - Pablo Askew [...] PM Modules accepted: Orders documented in this [id number] Miscellaneous Notes* Addendum Note - Jihan Orozco PA-C - 01/24/2021 3:03 PM EDT Addended by: JIHAN OROZCO on: 01/24/2021 03:03 PM Modules accepted: Orders * Addendum Note - Pablo Askew MA - 01/24/2021 1:56 PM EDT Addended by: PABLO ASKEW on: 01/24/2021 01:56 PM Modules accepted: Orders documented in this [id number] History of Present illness Narrative* Michelle Lindsey, VOCATIONAL REHABILITATION SUPERVISOR - 01/24/2021 1:32 PM EDT Images from [...] EDT Mr. Turcios was seen at the [facility] office at [facility] for presurgical pulmonary evaluation. Dr. 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 No running water or [...] oxygen to keep O2 sat >88% --Consult executive secretary social welfare to help secure stable place to live --Recommend in-patient rehab since patient has no running water or bathroom facilities which will affect his ability to care for self and surgical wound. --Illiterate requiring careful verbal instructions. We will see him for follow-up in 6 months. This note was dictated using Offerpop Software and may contain errors that were not corrected during editing. documented in this [id number] Miscellaneous Notes* Telephone Encounter - Pablo Askew MA - 01/23/2021 1:44 PM EDT Preop nasal swab + for staph Requested Prescriptions Pending Prescriptions Disp Refills mupirocin (BACTROBAN) 2 % ointment 15 g 0 Sig: Apply 0.5g into each nostril twice daily x 5 days prior to surgery . ' documented in this [id number] Nurse Note* Lotus Rajput RN - 01/14/2021 2:03 PM EDT Patient Instructions for [facility]: Prior to surgery: Please bath the night [...] you arrive at the [facility] on the day of your surgery, please note that manager logistic parking is free. Pull up to the [...] to view our online educational program in [employer]? It is very helpful to watch this as it can help you understand your surgery preparation process here at [facility]. It will provide you with [...] by a Medical Taxi documented in this [id number] History and physical note* Harpal Nieto MD [...] Albumin, MRSA Culture/Screen And corresponds with patient's associate professor of anthropology 2. Primary osteoarthritis of right hip Patient [...] an acceptable cardiac risk based on Current [place] College [employer]iology/[place] [employer] Association (ACC/AHA) guidelines for perioperative cardiovascular [...] failure. He has been actively followed by associate professor of anthropology. See notation fromMa2020 TIM previous pneumonia/hospital stay April 2020 and persistent consolidation on CT imaging in July and September 2020. Can request correspondence with patient's associate professor of anthropology to assure optimization for surgery Patient has [...] VTE disease: Antithrombotic Therapy and Prevention ofThrombosis, [place] [employer] (ACCP) Evidence-Based Clinical [...] pneuomia and emphysema Cocaine abuse in remission ([facility]) None since 2015- now on suboxone COPD (chronic obstructive pulmonary disease) ([facility]) Multiple ED visits- last 08/2020 Edema BLE + ED visit 07/25/20 Emphysema of lung ([facility]) Severe Essential hypertension 01/10/2017 Hyperlipidemia Neck pain Peptic ulcer disease PUD (peptic ulcer disease) Sepsis due to pneumonia ([facility]) 04/2020 Multiple ED visits- last 08/2020. Saw Pulm Dr Hollis while IP 04/20/20 Thoracic aortic aneurysm ([facility]) States d/t drug overdose TIA (transient ischemic [...] kg/m Constitutional--Conversant, in no acute distress Eyes: [place] conjunctivae, no ptosis. Pupils equal Bilaterally, Anicteric [...] Normal Narrative Transthoracic Echocardiogram Patient: KAROLINA Vazquez [facility] Rec#: [id number] (Age): 1960(59y) Height: 187(cm)/73(in) Study Date: 11/02/2019 Weight: 63.5(kg)/140(lb Room#: 56 BSA: [id number] Type: Inpatient Loc: [facility] Sex: M Reading: Jeremiah Romero D.O. Referring: Lisa Howe Wringer Machine Operator: LATISHA DURAN History: Asthma. COPD. Hypertension. Diagnosis: ICD-10-PCS Syncope and collapse (R55) Syncope (780.2) CPT Code(s): ECHO COMPLETE W/ DOPPLER (21651) Study Quality The study quality is technically [...] patient for surgery includes - More recent [facility] electronic records reviewed pertinent to history. Chest x-ray reviewed in [facility] from December 2020 elevated right hemidiaphragm. Chronic right basilar opacity. Improved aeration since previous exam. CTA pulmonary arteries from September 24, 2020 IMPRESSION: 1. No evidence of pulmonary embolic disease. 2. Left lower lobe consolidation most consistent with pneumonia. Small left pleural effusion. Radiographic follow-up to resolution is recommended. 3. Severe centrilobular emphysema. Echocardiogram reviewed in [facility] everywhere from November 29, 2018 Narrative Low [...] the surgeon's office/surgery center. documented in this [id number] Instructions* Patient Instructions* Harpal Nieto MD - 01/14/2021 1:34 PM EDT Images from the original note were not included. If your surgery date changes or you change your surgery date, please call us at [phone] Preoperative Medication Instructions In preparation for surgery [...] medications that contain aspirin, such as [place], Pepto- Bismol, Anacin), antiinflammatory medications such as Advil, Motrin, Ibuprofen, Naproxen, Aleve, [place], Pepto-Bismol, Anacin, Diclofenac, Voltaren, Daypro, Etodolac, Ketoprofen, Piroxicam, Relafen, Nabumetone, etc. Also discontinue Vitamin C, Vitamin E, [place]-3 Fatty Acid, Fish Oil or Lovaza, and [...] the day of surgery. documented in this [id number] Emergency department Note* Juanita Roy RN - 12/13/2020 4:08 PM EDT Pt resting in cot comfortably with eyes open. Pt was able to consume and tolerate given food. This RN will inform Dr. Oswald. * uJanita Roy RN - 12/13/2020 3:26 PM EDT [...] EMS- pt also received glucagon from EMS captain/airline pilot with no relief. * Yeny Serrano RN - 12/13/2020 12:18 PM EDT Suction at bedside. * Kvng Baker DO - 12/13/2020 12:18 PM EDT [facility] ED Resident Note: NAME: Wolf Turcios 60 y.o. CSN: [id number] PCP: Karma Mark CNP History: Chief Complaint: [...] Social Gatherings with Friends and Family: Attends Yazidism Services: Active Member of Clubs or Organizations: [...] Procedure Abnormality Status --------- ------ CBC Auto Differential[[id number]] Abnormal Final result Please view results for [...] Kvng Baker DO ED Resident Physician [facility] Emergency Department (Please note that portions of [...] states this episode happened about 20 minutes captain/airline pilot. Resp reg and unlabored. Skin warm and dry. Pt able to speak in short phrases while drooling. Pt intermittentlygagging. * Yeny Serrano RN - 12/13/2020 12:13 PM EDT Bed: 60 Expected date: Expected time: Means of arrival: Comments: M2, grape in throatyulianael documented in this [id number] Miscellaneous Notes* ED Update Note - Angelika [...] of separately performed procedures. 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 He is in no respiratory distress. He is unable to tolerate his own secretions. Pt is a poor historian but thinks he has been scoped in the past for dysphagia. I do not see any scopes in [facility] or care everywhere. Pt is not on [...] Social Gatherings with Friends and Family: Attends Yazidism Services: Active Member of Clubs or Organizations: [...] of the food bolus. documented in this [id number] Emergency department Note* John Montes DO - 10/03/2020 10:[address] [facility] EMERGENCY DEPARTMENT Attending Note: NAME: Wolf Turcios 60 y.o. CSN: [id number] PCP: Karma Mark CNP Chief Complaint: Leg [...] file Gets together: Not on file Attends evangelical service: Not on file Active member of [...] words are mis-transcribed.) John Montes DO 10/03/20 [id number] * Ruth Santacruz RN - 10/03/2020 7:09 PM EDT Presents with right hip pain; acute on chronic. States chronic pain is related to osteoarthritis. Acute pain is related to stepping down off a ladder the wrong way today around 1500. documented in this [id number] Emergency department Note* Uog Ochoa MD - 09/21/2020 1:55 PM EDT Associated Order(s): ECG 12 Lead ED PROVID[address] NOTE [facility] EMERGENCY DEPARTMENT NAME: Wolf Turcios AGE: 60 y.o. : 1960 VISIT DATE: 09/21/2020 CSN: [id number] PCP: Karma Mark CNP Chief Complaint Patient [...] file Gets together: Not on file Attends evangelical service: Not on file Active member of [...] ms QTC Calculation (Bezet) 444 ms P [place] 82 degrees R [place] 74 degrees T Beth[place] 73 degrees CBC Auto Differential Result Value [...] Laci Johnson, - 09/21/2020 11:16 AM EDT [facility] ED Resident Note: NAME: Wolf Turcios 60 y.o. CSN: [id number] PCP: Karma Mark CNP History: Chief Complaint: [...] file Gets together: Not on file Attends evangelical service: Not on file Active member of [...] at the following links: For Healthcare Providers: https://www.fda.gov/media/025858/download For Patients: https://www.fda.gov/media/107122/download NT PRO BNP - Normal Narrative: Pride Study Cut-offs Rule In: < /= 50 Years >450 pg/mL 51 Years - 75 Years >900 pg/mL 76 Years - 99 Years >1800 pg/mL Rule Out: All patients <300 pg/mL CBC AND DIFFERENTIAL Narrative: The following orders were created for panel order CBC w/ Diff. Procedure Abnormality Status --------- ------ CBC Auto Differential[[id number]] Abnormal Final result Please view results for these tests on the individual orders. TROPONIN CT Pulmonary Arteries Preliminary Result 1. No evidence of pulmonary embolic disease. 2. Left lower lobe consolidation most consistent with pneumonia. Small left pleural effusion. Radiographic follow-up to resolution is recommended. 3. Severe centrilobular emphysema. RECOMMENDATIONS: Radiographic follow-up to resolution. [facility] Workstation ID: [id number] Procedures: Procedures Medications Given in the ED: [...] Laci Johnson DO ED Resident Physician [facility] Emergency Department (Please note that portions of [...] + back in April documented in this [id number] Miscellaneous Notes* ED Attestation Note - Ugo [...] of separately performed procedures. [facility] Diagnosis Community acquired pneumonia, unspecified [...] of right [facility] Primary osteoarthritis of right hip- Primary Preop pulmonary/respiratory exam- Primary Pre-operative respiratory examination Chronic obstructive pulmonary disease with acute exacerbation (HCC) Tobacco dependence Tobacco use disorder Homeless Lack of housing Illiterate Other psychological or physical stress, not elsewhere classified Primary osteoarthritis of right hip [facility] Diagnosis Primary osteoarthritis of right hip- Primary Primary osteoarthritis of right hip- Primary Primary osteoarthritis of right hip [facility] Diagnosis Primary osteoarthritis of right hip- Primary Exposure to SARS-associated coronavirus Primary osteoarthritis of right hip- Primary Primary osteoarthritis of right hip [facility] Primary osteoarthritis of right hip- Primary Exposure to SARS-associated coronavirus Primary osteoarthritis of right hip- Primary Primary osteoarthritis of right hip [facility] Diagnosis Primary osteoarthritis of right hip- Primary Exposure to SARS-associated coronavirus Primary osteoarthritis of right hip- Primary Primary osteoarthritis of right hip [facility] Diagnosis Primary osteoarthritis of right hip- [...] lumbosacral intervertebral disc [facility] Other emphysema Health care maintenance Unspecified general medical examination [facility] Diagnosis Screening for lung cancer [facility]* Diagnosis COPD with acute exacerbation (HCC)- Primary COPD exacerbation (HCC) Obstructive chronic bronchitis with exacerbation Increased sputum production Tachypnea COPD with acute exacerbation (HCC) Acute on chronic respiratory failure with hypoxia ([facility]) [facility] department note* Diagnosis Chronic obstructive pulmonary disease with [...] perforation, or obstruction [facility] Diagnosis Chronic obstructive pulmonary disease with acute exacerbation- Primary Obstructive chronic bronchitis with exacerbation [facility] Diagnosis COPD with acute exacerbation (HCC)- Primary [facility] Diagnosis Chronic obstructive pulmonary disease, [...] of external genitals [facility]* Diagnosis Chronic obstructive pulmonary disease, unspecified [...] Bladder outlet obstruction [facility]* Diagnosis Chronic obstructive pulmonary disease, unspecified [...] specific antigen (PSA) documented in this encounter [facility]* Diagnosis Chronic obstructive pulmonary disease, unspecified [...] specific antigen (PSA) [facility] Work Phone: Evaluation note* Diagnosis Chronic obstructive [...] specific antigen (PSA) [facility]* Diagnosis Chronic obstructive pulmonary disease, unspecified [...] specific antigen (PSA) [facility]* Diagnosis Chronic obstructive pulmonary disease, unspecified [...] neoplasm of prostate [facility]* Diagnosis Chronic obstructive pulmonary disease, unspecified [...] neoplasm of prostate [facility] Diagnosis Chronic obstructive pulmonary disease, [...] neoplasm of prostate [facility] Diagnosis Chronic obstructive pulmonary disease, [...] neoplasm of prostate [facility] Diagnosis Chronic obstructive pulmonary disease, [...] neoplasm of prostate [facility] Diagnosis Chronic obstructive pulmonary disease, [...] neoplasm of prostate [facility]* Attachments The following attachments cannot be sent through Care Everywhere. * Pneumonia (Libyan) * Pneumonia: Self-Care: Video (Libyan) * COPD: Prevent Lung Infections: General Info (Libyan) [facility]* Attachments The following attachments cannot be sent through Care Everywhere. * Hip Arthritis: Exercises (Libyan) * Hip Pain (Libyan) [facility]* Attachments The following attachments cannot be sent through Care Everywhere. * Esophagitis (Libyan) [facility]* Attachments The following attachments cannot be sent through Care Everywhere. * COPD (Libyan) [facility] instructionsAdditional Instructions Status post prostate biopsy with bleeding. Hemoglobin is 15. Anoscopy 5 bleeding with retraction of the anoscopy. Take stool softeners as prescribed twice a day to avoid irritation. follow-up with your urologist.[facility] Work Phone: [facility] for referral (narrative)* Consultation (Routine) Status Reason Specialty Diagnoses / Procedures Referred By Contact Referred To Contact Closed Specialty Services Required/Patie nt's Best Interest Care Management Diagnoses Primary osteoarthritis of right hip Jihan Orozco PA-C [address] [phone] Electronically signed by Teresa Terry MD at [facility] for referral (narrative)* Consultation (Routine) - Closed Specialty Diagnoses / Procedures Referred By Alexa t Referred To Contact Care Management Diagnoses Primary osteoarthritis of right hip Jihan Orozco PA-C [address] [phone] Referral ID Status Reason Start Date Expiration Date V isits Requested Visits Authorized [id number] Closed Specialty Services Required/Tatyana ent's Best Interest 12/25/2020 12/25/2021 1 1 [facility] for referral (narrative)* Consultation (Urgent) - Pending Review Specialty Diagnoses / Procedures Referred By Contlorena t Referred To Contact Spine Diagnoses Neurogenic claudication Ivonne Henry MD [address] [place] [address] [place] [phone] Referral ID Status Reason Start Date Expiration Date V isits Requested Visits Authorized [id number] Pending Review 10/02/2023 10/26/2024 1 1 * Consultation (Routine) - Pending Review Specialty Diagnoses / Procedures Referred By Contac t Referred To Contact Ophthalmology Diagnoses Cataract, unspecified cataract type, unspecified laterality Ivonne Henry MD [address] [place] [address] Referral ID Status Reason Start Date Expiration Date V isits Requested Visits Authorized [id number] Pending Review 10/02/2023 10/26/2024 1 1 * Consultation (Routine) - Pending Review Specialty Diagnoses / Procedures Referred By Contac t Referred To Contact Pulmonary Diagnostics Diagnoses Tobacco abuse Encounter for screening for lung cancer Ivonne Henry MD [address] [phone] Referral ID Status Reason Start Date Expiration Date V isits Requested Visits Authorized [id number] Pending Review 10/02/2023 10/26/2024 1 1 * Pulmonary Rehabilitation (Routine) - Pending Review Specialty Diagnoses / Procedures Referred By Contac t Referred To Contact Diagnoses Other emphysema Health care maintenance Procedures PFT STANDARD Ivonne Henry MD [address] [phone] Referral ID Status Reason Start Date Expiration Date V isits Requested Visits Authorized [id number] Pending Review 10/02/2023 10/26/2024 1 1 * Consultation (Routine) - Pending Review Specialty Diagnoses / Procedures Referred By Contac t Referred To Contact Addiction Medicine Diagnoses Cocaine abuse in remission Opioid use disorder in remission Ivonne Henry MD [address] [place] [address] Zi Alfaro MD [address] [place] [address] Referral ID Status Reason Start Date Expiration Date V isits Requested Visits Authorized [id number] Pending Review 10/02/2023 10/26/2024 1 1 [facility] for referral (narrative)* Unlisted Procedure Code (Routine) - New Request Specialty Diagnoses / Procedures Referred By Contac t Referred To Contact Procedures PLATELET MONITORING PER PROTOCOL Reji Al MD [address] [place] [address] Referral ID Status Reason Start Date Expiration Date V isits Requested Visits Authorized [id number] New Request 10/29/2023 11/22/2024 1 1 * Unlisted Procedure Code (Routine) - New Request Specialty Diagnoses / Procedures Referred By Contac t Referred To Contact Procedures DVT/VTE RISK ASSESSMENT Reji Al MD [address] [place] [address] Referral ID Status Reason Start Date Expiration Date V isits Requested Visits Authorized [id number] New Request 10/29/2023 11/22/2024 1 1 * Radiology (Emergency) - New Request Specialty Diagnoses / Procedures Referred By Contac t Referred To Contact Procedures ECG Reji Al MD [address] [place] [address] Referral ID Status Reason Start Date Expiration Date V isits Requested Visits Authorized [id number] New Request 10/29/2023 11/22/2024 1 1 * Radiology (Emergency) - New Request Specialty Diagnoses / Procedures Referred By Contac t Referred To Contact Procedures ECG Washington Howell MD [address] [place] [phone] Referral ID Status Reason Start Date Expiration Date V isits Requested Visits Authorized [id number] New Request 10/29/2023 11/22/2024 1 1 [facility] Consultation (Routine) - New Request Specialty Diagnoses / Procedures Referred By Contac t Referred To Contact Pulmonary Disease Diagnoses Chronic obstructive pulmonary disease with acute exacerbation Zi Alfaro MD [address] [phone] Referral ID Status Reason Start Date Expiration Date V isits Requested Visits Authorized [id number] New Request 11/04/2023 11/28/2024 1 1 * Adjunctive Therapy (Routine) - New Request Specialty Diagnoses / Procedures Referred By Contac t Referred To Contact Pulmonary Disease Diagnoses Chronic obstructive pulmonary disease with acute exacerbation Procedures TX PHYS/QHP SVCS OP PULM REHAB WO CONT OXIMTRY MNTR Zi Alfaro MD [address] [facility] [address] [place] [phone] Referral ID Status Reason Start Date Expiration Date V isits Requested Visits Authorized [id number] New Request 11/04/2023 11/28/2024 1 1 [facility] ([facility]ative)No reason for referral information availableWKettering Health [facility] Work Phone: Reason for visit Narrative* Evaluate and Treat (Routine) - Closed Specialty Diagnoses / Procedures Referred By Contac t Referred To Contact Urology Diagnoses Injury to penis Kvng Escoto PA-C [address] [facility] [address] [place] [address] Phone: tel: fax: Kvng Escoto PA-C [address] [facility] [address] [place] [address] Phone: tel: fax: Referral ID Status Reason Start Date Expiration Date V isits Requested Visits Authorized [id number] Closed Specialty Services Required/Tatyana ent's Best Interest 10/18/2024 10/18/2025 1 1 [facility] Course * ManuelJessikalle, VOCATIONAL REHABILITATION SUPERVISOR - 12/15/2017 11:07 AM EDT Formatting of this note may be different from the original. [facility] DIS[facility] SUMMARY Wolf Turcios Admitted: 12/13/2017 Discharge [...] is homeless) and emphysema may be contributing. Consumer Affairs Manager consulted. Nutrition supplements ordered TID with meals. [...] tablet, Refills: 0 Physician(s) Follow Up: Generic [facility] [address] [address] Follow up Please call if you have any hospital-related questions [facility] [address] [facility] [phone] Follow up Yadiel Chowdhury MD [address] [facility] [address] [address] Follow up Please call to arrange an [...] different from the original. Coni Schmitz DO [facility] MEDICAL OBSERVATION DISCHARGE SUMMARY Wolf [...] different from the original. 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 Phil Borjas MD [address] [phone] Follow up Outpatient referral has been made for you to discuss outpatient EGD with a GI specialist as you reported having a sensation something was stuck in your throat Ariel Mcintosh II, MD [address] [facility] [address] [address] Schedule an appointment as soon as possible [...] Dean PA-C - 08/13/2020 1:25 PM EST [facility] DISCHARGE SUMMARY Wolf Turcios Admitted: 08/08/2020 Discharge [...] daily . Physician(s) Follow Up: Karma Mark, VOCATIONAL REHABILITATION SUPERVISOR [address] [facility] [phone] Follow up Condition at Discharge: Stable [...] be sent through Care Everywhere. * COPD (Libyan) * COPD Exacerbation Plan (Libyan) * Cervical Myelopathy: Surgery: Pre-op (Libyan) * Cervical Disc Disease (Libyan) * Cervical Spinal Stenosis (Libyan) in this encounter* Nilsa Quigley PA-C - 01/10/2018 Please continue to use your inhaler and breathing treatments at home. Please follow up with the transitional care clinic. Please return to the emergency department with any new or worsening symptoms or any concerns you may have. The following attachments cannot be sent through Care Everywhere. * SOB (Shortness of Breath) (Libyan) in this encounter* Discharge Instr - Care Coordination - Coni Schmitz DO - 01/10/2017 5:09 PM EDT It is recommended that you take aspirin daily to prevent any further TIA and avoid any drug use. Please follow up with the clinic list given by the executive secretary social welfare to establish with a doctor. It is important that you take a mediation to lower your cholesterol such as Lipitor. This medication is cheaper at [facility]. * Coni Schmitz DO - 01/10/2017 [...] for any reason. Do not take any vxfk-osu-tcflaxd medicines or herbal products without talking to [...] Log into your personal health record on https://Crispy Driven Pixels.[employer] and enter I231 in the Education box to learn more about Transient Ischemic Attack: Care Instructions. Current as of: November 10, 2015 Content Version: 11.2 2383-5301 [employer]. Care instructions adapted under license by your healthcare professional. If you have questions about a medical condition or this instruction, always ask your healthcare professional. [employer] disclaims any warranty or liability for your use of this information. in this encounter* Discharge Instr - Care Coordination - Coni Schmitz DO - 01/10/2017 5:09 PM EDT It is recommended that you take aspirin daily to prevent any further TIA and avoid any drug use. Please follow up with the clinic list given by the executive secretary social welfare to establish with a doctor. It is important that you take a mediation to lower your cholesterol such as Lipitor. This medication is cheaper at [facility]. * Coni Schmitz DO - 01/10/2017 [...] for any reason. Do not take any ngua-utl-njipfvg medicines or herbal products without talking to [...] Log into your personal health record on https://Crispy D[employer]en Pixels.[employer] and enter I231 in the Education box to learn more about Transient Ischemic Attack: Care Instructions. Current as of: November 10, 2015 Content Version: 11.2 5457-9154 [employer]. Care instructions adapted under license by your healthcare professional. If you have questions about a medical condition or this instruction, always ask your healthcare professional. [employer] disclaims any warranty or liability for your use of this information. in this encounter* Attachments The following attachments cannot be sent through Care Everywhere. * COPD Exacerbation Plan (Libyan) documented in this encounter* Discharge Instr - [...] Passing out. After you call 911, the decorating machine operator may tell you to chew [...] Log into your personal health record on https://Crispy D[employer]en Pixels.[employer] and enter A848 in the Education box to learn more about Fainting: Care Instructions. Current as of: December 01, 2018 Content Version: 12.3 3293-2275 [employer], [employer]. Care instructions adapted under license by your healthcare professional. If you have questions about a medical condition or this instruction, always ask your healthcare professional. [employer] disclaims any warranty or liability for your use of this information. documented in this encounter* Instructions* Lotus Cruz CNP - 01/14/2020 Seek medical attention if you have worsening symptoms or other concerns. Please follow up with your family doctor or one of your choosing. You may find a provider through the [facility] Physician Referral Service by calling [phone] [phone] ([phone]) or by visiting [email or web address] Wolf, Thank You for choosing [facility]! You were provided with a new spacer for your inhalers. * Attachments The following attachments cannot be sent through Care Everywhere. * Smoking: Stopping (Libyan) * SOB (Shortness of Breath) (Libyan) * COPD: General Info (Libyan) documented in this encounter* Discharge Instr - [...] are accepted at virtually every [place] pharmacy. [facility] does not accept good rx coupons for pain medication (narcotics) at this time. Your pharmacist will know how to enter the codes on the coupon to pull up the lowest discount available. How do I use a GoodRx coupon? It s similar to using a coupon at a grocery store. Simply print the coupon and bring it with you [facility] when you garbage pick up man your prescription. The pharmacist will enter the numbers on the coupon into their system to find the discount. Don t have a printer or want to save paper and ink cartridges? You can show the coupon on your phone by: A) Sending the coupon to yourself via email or text B) Or using the mobile asher C) Visiting our mobile website [email or web address] Auto [employer]ailing What if I have insurance or Medicare? [...] insurance. * Additional Instructions* Ramiro Lisarodrigue Santana, VOCATIONAL REHABILITATION SUPERVISOR - 04/12/2020 Chronic Obstructive Pulmonary Disease (COPD): [...] it properly. Do not take any vitamins, qnze-dnh-fgvrjxu medicine, or herbal products without talking to [...] exercise. Take short rest breaks when doing herb counselor and other activities. Learn breathing methods such [...] Log into your personal health record on https://Kawaii Museumt.ExamSoft Worldwide and enter X915 in the Education box to learn more about Chronic Obstructive Pulmonary Disease (COPD): Care Instructions. Current as of: August 01, 2019 Content Version: 12.6 Allmoxy. Care instructions adapted under license by your healthcare professional. If you have questions about a medical condition or this instruction, always ask your healthcare professional. [employer] disclaims any warranty or liability for your [...] through Care Everywhere. * COPD Exacerbation Plan (Libyan) documented in this encounter* Attachments The following attachments cannot be sent through Care Everywhere. * COPD Exacerbation Plan (Libyan) documented in this encounter* Attachments The following attachments cannot be sent through Care Everywhere. * Fall Prevention (Libyan) documented in this encounter* Instructions* Kaitlynn Ambriz [...] it properly. Do not take any vitamins, xjob-slf-rxsoxhi medicine, or herbal products without talking to [...] exercise. Take short rest breaks when doing herb counselor and other activities. Learn breathing methods such [...] Log into your personal health record on https://Kawaii Museumt.[employer] Worldwide and enter X915 in the Education box to learn more about Chronic Obstructive Pulmonary Disease (COPD): Care Instructions. Current as of: August 01, 2019 Content Version: 12.7 Allmoxy. Care instructions adapted under license by your healthcare professional. If you have questions about a medical condition or this instruction, always ask your healthcare professional. [employer] disclaims any warranty or liability for your [...] liquids, or puree certain foods in a geotechnical laboratory technician. To help with pneumonia Take your antibiotics [...] chances of quitting for good. Take an ispu-ufa-cuwiatj pain medicine, such as acetaminophen (Tylenol), ibuprofen [...] Log into your personal health record on https://Yipithart.ExamSoft Worldwide and enter D757 in the Education box to learn more about Aspiration Pneumonia: Care Instructions. Current as of: August 01, 2019 Content Version: 12.7 Allmoxy. Care instructions adapted under license by your healthcare professional. If you have questions about a medical condition or this instruction, always ask your healthcare professional. [employer] disclaims any warranty or liability for your use of this information. documented in this encounter* Discharge Instr - AVS First Page* Kaitlynn Ambriz CNP - 07/26/2020 10:15 AM EST YOU ARE TO LIMIT THE SALT IN YOUR DIET YOU ARE TO TAKE YOUR hydrochlorothiazide DAILY TO HELP WITH YOUR LEG SWELLING AT HOME * Additional Instructions* Kaitlynn Ambriz, VOCATIONAL REHABILITATION SUPERVISOR - 07/26/2020 Leg and Ankle Edema: Care [...] Log into your personal health record on https://Kawaii Museumt.ExamSoft Worldwide and enter N696 in the Education box to learn more about Leg and Ankle Edema: Care Instructions. Current as of: August 03, 2019 Content Version: 12.7 Allmoxy. Care instructions adapted under license by your healthcare professional. If you have questions about a medical condition or this instruction, always ask your healthcare professional. [employer] disclaims any warranty or liability for your [...] it properly. Do not take any vitamins, cojk-cdk-rcgzzgi medicine, or herbal products without talking to [...] exercise. Take short rest breaks when doing herb counselor and other activities. Learn breathing methods such [...] Log into your personal health record on https://Crispy Driven Pixels.Exam[employer] Worldwide and enter X915 in the Education box to learn more about Chronic Obstructive Pulmonary Disease (COPD): Care Instructions. Current as of: August 01, 2019 Content Version: 12.7 Allmoxy. Care instructions adapted under license by your healthcare professional. If you have questions about a medical condition or this instruction, always ask your healthcare professional. Allm[employer] disclaims any warranty or liability for your [...] You may find a provider through the [facility] Physician Referral Service by calling [phone] ([phone]) or by visiting [email or web address] Seek medical attention immediately if you have worsening symptoms or other concerns. Thank You for choosing us for your Emergency Care! * Attachments The following attachments cannot be sent through Care Everywhere. * Fainting (Libyan) documented in this encounter* Discharge Instr - Care Coordination* [place] Dc RN - 08/09/2020 8:01 AM EST Resolver [facility]: *For more information or other resources, visit [facility]'s website: http://AOT Bedding Super Holdings or call: [phone] [address] Units Type: Senior/Affordable 1 Bedroom [address] [place] [address] [employer] [facility] [phone] [email or web address] memorial [email or web address] [place] is a senior community located in [place], [place]. [place] offers 1 bedroom apartments to residents 62 or older. [facility] 75 Units Type: Affordable [facility] Housing [address] [place], [place] [address] 1 & 2 Bedroom Garden Style [employer] [facility] [phone] [email or web address] [facility] is a sprawling community featuring 1 and 2 bedroom apartments dedicated to long-term at its finest. [facility] 53 Units Type: Affordable Family [address] [place], [place] [address] 2 Bedroom [facility] hospital[facility] with unfinished basements [employer] [phone] [email or web address].[email or web address] is an affordable housing development located on the east side of [place]. Easy access to ARMENTA transportation. [place] [address] Units Type: Senior/Affordable 1 Bedroom [address] [place] [address] [employer] [phone] [email or web address] [place] is a senior community located on the [place]side of [place], [place]. [facility] offers 1 bedroom cottage and garden style apartments to residents 62 or older. [address] Units Type: Market Rate Family Housing [address] [place], [place] [address] 1-2 Bedroom Garden Style Property Management [employer]. [employer] [phone] http://www.Interventional Imaging Built in 2014, the property boasts 1 and 2 bedroom garden style apartments. Scott Maya is a marketrate property offering workforce rents. Ascencion Weber 50 Units Type: Family/Affordable [address] [place] [address] Property Management Co. griddig Office Located at [facility] 2-3 Bedroom Townhomes, 2 Bedroom Handicap Accessible Garden Style-Flats [phone] http://www.Austral 3D/ Ascencion Estlarry is an affordable housing development in the [facility] Area. Belarusian Velásquez 72 Units Type: Affordable Family Housing [address] [place], [place] [address] 2-3 Bedroom Garden and Townhomes Fluential Management [employer]. M Squared Films [phone] http://www.[facility] Belarusian Velásquez is an affordable housing development located on the south side of [place] offering spacious apartment homes to area families. Serafin Sierra 100 Units Type: Affordable Senior Housing [address] [place], [place] [address] 1 Bedroom Garden Style Fluential Management Co. [facility] [phone] http://www.tenet st. [place].org Serafin Sierra is an affordable housing development for elderly residents 62 years and older. Betancourt is located east of [facility] between [address] [place] [address] and [facility]. Kayla Square Click to view more 56 Units Family/Affordable 2 Bedroom Townhomes [address] [place] [address] Whereoscope. griddig [phone] http://www.Austral 3D/ [facility] is an affordable housing development on the northeast side [facility] between [facility] and [facility]. [place] at [facility] 87 Units Type: Family/Mixed Income 1-3 Bedroom Townhouses and Garden-Style Flats [address] [place] [address] Property Management Co. [facility] [phone] http://www.nLIGHT Corp..Ads Click/ [facility] 71 Units Type: Affordable Senior Housing [address] [place], [place] [address] 1 bedroom Garden Style Property Management Co. Bib + Tuck [phone] http://THE ICONIC/ [facility] is an affordable housing development for residents age 62 and over. [facility] offers one-bedroom units. [place] 95 units Type: Affordable Family Housing [address] [place], [place] [address] 2-4 Bedroom ranch style and Townhomes some with garages Property Management Co. [employer] [phone] http://www.[facility] [place] is an affordable housing development in [place]. [address] 100 Units Type: Family/Mixed Income 1, 2, and 3 Bedroom Lofts and Townhomes [address] [place] [address] Property Management Co. [place] Credii [phone] http://www.Gecko/ [facility] 80 Units Type: Family/Affordable 2-3 Bedroom Townhouses [address] [place] [address] Property Management Co. WashburnRad [phone] http://www.Austral 3D/ [facility] is an affordable housing development on the northeast side [facility] between [facility] [place] and [facility]. [facility] 104 Units Type: Senior/Affordable 1 Bedroom Garden Style Flats [address] [place] [address] Property Management Co. [facility] [phone] http://www.[facility] ahuja medical centerEquityLancerbarstow community hospitalEarth Sky.org [place] 148 Units Type: Affordable Family Housing [address] [place], [place] [address] 2 & 3 Bedroom [facility] Property Management CoFFFavs [phone] http://www.[facility] [place] is an affordable housing development on the west side of [place] just south of the [address] and [address]. Rosestanislaw 230 Units Type: Family/Affordable 1-4 Bedroom Townhouses and Single-Family Homes [address] [place], [place] Property Management Co. WashburnEndavo Media and Communications [facility] [phone] http://www.Austral 3D/ [facility] ([place], [place]) is a 230-unit community blending 160 townhouses with 70 single-family homes. Units are available with up to four bedrooms. The property is situated in the [facility]. Garret Martinez 116 Units Type: Affordable Family Housing [address] [place], [place] [address] 2 & 3 Bedroom [facility] Property Management Co. [facility] [phone] http://www.LUX Assureselect [facility].org Garret Martinez is an affordable housing development adjacent to the [facility]. Its boundaries are [facility] ([facility]), [facility] ([place]), [facility] ([place]) and[facility] ([facility]). [facility] Apart[facility] 120 Units Type: Affordable Family Housing [address] [place], [place] [address] 1 Bedroom Garden Style Property Management Co. The Reniac [phone] http://THE ICONIC/ [facility] Apartwalden behavioral care is designated for elderly residents 62 years of age or older. Penn LairdElectric Cloud 86 Units Type: Family/Affordable 2-3 Bedroom Townhouses and Garden-Style Flats [address] [place] [address] Property Management Co. [facility] Office Located at [facility] ([place], [place]) ([address] [place] [address]) [phone] http://www.Gecko/ Ciklum 86 garden and townhouse style units. ROVOP is an affordable housing development located in [facility]; its boundaries are [place] ([place]), [facility] (east) and [facility] (west). [facility] 137 Units Type: Affordable Family Housing [address] [place], [place] [address] 2-4 Bedroom [facility] with unfinished basements Property Management Co. [facility] [phone] http://www.Referly.org Donny Meadows is an affordable housing development located on the near east side of [place] adjacent to the [facility]. Donny Meadows is comprised of a mix of duplex and single-family homes. Transportation options include convenient access to public transportation on the ARMENTA bus line. Fatemeh Morelos 28 Units Type: Mixed Income 2, 2+, and 3 Bedroom Townhomes [address] [place] [address] Property Management Co. [facility] Located at [facility] ([address] [place] [address]) [phone] http://www.Gecko/locations/fatemeh-guera/ The Guera is located in the historic [facility] in [facility] side. Usman Sierra 100 Units Type: Affordable Senior Housing [address] [place] [id number] 1 Bedroom Garden Style Fluential Management Co. M [employer] Films [phone] http://www.[facility] Usman Sierra is an affordable housing development built in the [facility], [place] is conveniently located on the west side of [facility] between [facility] and [facility]. Usman s three-story brick building houses 100 single-bedroom elderly units. DEPARTMENT OF JOBS AND FAMILY SERVICES SNAP, Medicaid, unemployment,child supportCall for locations, J.O.I.N. Assistance with utilities, glasses, prescriptions 578 [facility], M F 10-11:30 & 12:00 [place] [employer] Food, health care, childcare, energy assistance,veterans, etc.Call for locations: SOCIAL SECURITY ADMINISTRATION M,T,W,F-9am-4pm W 9am-12nt[address] [phone] [facility] [phone] [facility] Shower and Laundry Yywjzjwk[address], [phone]-1pm Wed & Fri ? EVICTION ASSISTANCE [facility] Help for tenants facing eviction by working w/landlord to maintain their [phone] ext. three rivers healthcareArea 1 Security.Ads Click ? FREE MEALS AISHWARYA PRESBYTERIAN [address] [place], Sat 11:30 1:30 [facility] [address], [place], Tue, , Fri - 7:00Wed. lunch 12:00-2:00 [facility] 501 [facility], W, T, Th - 5:30, W 6:00 COMMUNITY KITCHEN [address] [facility], N-Sat - 8:30-9:30 & M-Sat - 11:30-1:00 FLAQUITA MISSION (MEN) [address] [facility], O F-6:30 - 7:15 Sat & Sun - 8:30-9:30Every Day - 12:30 1:30 &6:45 7:45 FLAQUITA MISSION (WOMAN & CHILDREN) [address] [facility], Xmelw Day - 7:30 8:15,11:30 12:15 & 5:30 6:15 [facility] KITCHEN [address], M F - 10:30 12:30 [facility] [address] [facility], Every Thursday at Noon [facility], F - 12:00 2:00 [facility] [address]. , Fcc. 6:30 8:45 & T 9:00 11:00 OPEN [facility] [address], M F - 10:30 2:00 [facility] COMM. KITCHEN [address] [place] [address] , M F - 8:30am - 9:30am & 11:30-12:30 [facility] [address] [facility], M F - 1:30 3:30 [facility] [address] [place], W Sat - 8:00 10:00T, W, Th, Sat - 12:00 2:00F Pizza - 5:00 6:00 [facility] [address], Jvt. - Fri. - 11:00 - 12:30 [facility] [address] Thursday - 1:30 [facility]ER [facility] [address], R, T, - 11:00 1:00 FEED MY SHEEP MINISTRIES [address] [phone] 6:30pm FEED MY SHEEP AT [facility] LIGHT CLUB [address] , Zifhdabl at 6:30pm [facility] [address] - 6:00pm - 7:00pmSunday - 9:30am - 10:15am [facility] 100 [address] [facility] Centervd11:00-2pm Saturdays [phone] [facility] [address][phone]- 5:30pm, Sun 10:00am ANGELIKA 25:35 MINISTRIES bible study & dinner Fri: 7pm-8:30pm [address]. ? CLOTHING & HOUSEHOLD [facility] [address] Tufriqz - 9 11:15 Thursday 6:30-8:30 [facility] [employer] STORE [address] D, Th, Sat - 10:00 12:30Weds - 1:00 - 3:30 Fri - 3:00 5:30Fresh Produce: T - 2:00 - 3:00Weds - 10:00 - 11:00 [facility] [address] G - 10:00 12:00(doors open at 9:30)Th - 3:00 5:00(doors open at 2:30) Sat - 11:30-1:30 produce across streetAtrium [facility] served every Sat. 11:00-12:00 [facility] LICEA UGO [address] [facility], Vid, Tu, Th10:00 am - Noon FREE MEALS AISHWARYA PRESBYTERIAN [address] [place], Sat 11:30 1:30 [facility] 38 [facility], Mon, Tue, Thur, Fri - 7:00 Wed. lunch 12:00-2:00 [facility] 501 [facility], M, T, Th - 5:30, W 6:00 COMMUNITY KITCHEN [address] [facility], M Sat - 8:30 9:30 M - Sat - 11:30 1:00 F[facility]ISSION (MEN) [address] [facility], M F - 6:30 - 7:15 Sat & Sun - 8:30 9:30 Every Day - 12:30 1:30 & 6:45 7:45 FLA[facility]ITA MISSION (WOMAN & CHILDREN) [address] [facility], Every Day - 7:30 8:15, 11:30 12:15 & 5:30 6:15 [facility] [address], M F - 10:30 12:30 [facility] [address] [facility], Every Thursday at Noon [facility], F - 12:00 2:00 ThirdSpaceLearning [facility] COMMUNITY OUT[facility]ACH [address] , Sun. 6:30 8:45 T 9:00 11:00 OPEN [facility] 61 [address], M F - 10:30 2:00 [facility] KITCHEN [address] [place] [address] , M F - 8:30am - 9:30am & 11:30 12:30 [facility] [address] [facility], M F - 1:30 3:30 [facility] [address] [place], T Sat - 8:00 10:00 T, W, , Sat - 12:00 2:00 F Pizza - 5:00 6:00 [facility] [address], Mon. - Fri. - 11:00 - 12:30 [facility] [address] [facility] Thursday - 1:30 [facility] [address], M, T, - 11:00 1:00 FEED MY SHEEP MINISTRIES [address] [facility]. [phone] Tuesdays 6:30pm FEED MY SHEEP AT [facility]IGHT [facility] [address] [facility], Tuesdays at 6:30pm [facility] [address] [facility]. - 6:00pm - 7:00pm Thursday - 9:30am - 10:15am [facility] [address]. [facility] parking lot 11:00-1:30pm Saturdays [phone] [facility] [address][phone] - 5:30pm, Sun 10:00am ? CLOTHING & HOUSEHOLD [facility] [address] Thursday - 9 11:15 Thursday 6:30-8:30 [facility] [employer] STORE [address] T, , Sat - 10:00 12:30 Weds - 1:00 - 3:30 Fri - 3:00 5:30 Fresh Produce: T - 2:00 - 3:00 Weds - 10:00 - 11:00 [facility] [address] M - 10:00 12:00(doors open at 9:30) - 3:00 5:00(doors open at 2:30) Sat - 11:30-1:30 Lunch served every Sat. 11:00-12:00 [facility] [address] [facility], Thu, , 10:00 am - Noon AD[employer]OURCES [employer] Utilities and rent 7[address] [facility]. [phone] Mon & Weds 10:00am - 3:00pm DEPARTMENT OF JOBS AND FAMILY SERVICES SNAP, Medicaid, unemployment, child support Call for locations, [facility] REENTRY TASK FORCE Ask for Reentry Task Force Help people coming out of detention/usp find resources [phone] [facility] SUICIDE HOTLINE [phone] J.O.I.N. Assistance with utilities, glasses, prescriptions 578 [facility], M F 10:00 11:30 & 1:00 2:00 [place] [employer] Food, health care, childcare, energy assistance,veterans, etc. Call for locations: SOCIAL SECURITY ADMINISTRATION M,T,W,F-9am-4pm W 9am-12pm [address] [phone] [facility] 1060 [facility] Jadon [facility] Shower and Laundry Services [address], 9:30am - 1:00pm EVICTION ASSISTANCE COMMUNITY MEDIATION SERVICES [facility] Help for tenants facing eviction by work- ing w/landlord to maintain their housing [phone] ext. 13 Aula 7 documented in this encounter Assessments Diagnosis Chronic [...] exacerbation of chronic obstructive pulmonary disease (COPD) ([facility]) Obstructive chronic bronchitis with exacerbation Diagnosis Testicle [...] not specified Diagnosis COPD with acute exacerbation ([facility]) Diagnosis Epididymal cyst- Primary Other specified disorder of male genital organs COPD exacerbation ([facility])- Primary Obstructive chronic bronchitis with exacerbation Cough [...] organism, unspecified whether acute organ dysfunction present ([facility]) Acute respiratory failure with hypoxia ([facility]) COPD exacerbation ([facility]) Obstructive chronic bronchitis with exacerbation Chest pain, atypical Nausea and vomiting, intractability of vomiting not specified, unspecified vomiting type Cigarette nicotine dependence without complication Cocaine use disorder ([facility]) Adjustment disorder with depressed mood Substance use disorder Bilateral hip pain Pain in joint, pelvic region and thigh Epididymal cyst Other specified disorder of male genital organs Diagnosis Hydrocele, unspecified hydrocele type- Primary Diagnosis Acute exacerbation of chronic obstructive pulmonary disease (COPD) ([facility])- Primary Obstructive chronic bronchitis with exacerbation Tachycardia Unspecified tachycardia Diagnosis Hydrocele- Primary Hydrocele, unspecified hydrocele type- Primary Epididymal cyst Other specified disorder of male genital organs Hydrocele, unspecified hydrocele type Diagnosis Chronic obstructive pulmonary disease, unspecified COPD type ([facility])- Primary Multifocal pneumonia Tobacco use History of [...] exacerbation of chronic obstructive pulmonary disease (COPD) ([facility]) Obstructive chronic bronchitis with exacerbation Bilateral edema of lower extremity Diagnosis Syncope, unspecified syncope type- Primary Diagnosis Pneumonia of left lung due to infectious organism, unspecified part of lung Sepsis, due to unspecified organism, unspecified whether acute organ dysfunction present ([facility]) Acute respiratory failure, unspecified whether with hypoxia or hypercapnia (HCC) COPD (chronic obstructive pulmonary disease) ([facility]) Chronic airway obstruction, not elsewhere classified Essential [...] Dugan, RAY - 12/21/2017 11:01 AM EDT [facility] 48 hour Follow up Phone Call Introduction: jovi Bull I speak with PT NAME. My name is [facility] from [facility]. I know you were just in the [...] the spiriva every day Go to the [facility] ([address] [place] [address] across from the Emergency department) to have the xray of your hips and pelvis done. in this encounter* Patient Instructions* Adelina Multani MA - 01/17/2020 8:58 AM EDT Please call Surgery Clinic NurseMariama [phone] Option 7 for any questions related to your Surgery. You may also leave a message for your doctor through your [employer] account. For urgent needs, call [phone] Option # 4 to speak with the Patient Vp Medical. For urgent calls when the office is closed, call the office at [phone]. You will be connected with U-Systems Service personnel who will route your comments to the java integration developer General Surgery Resident. documented in this encounter* Patient Instructions* Wally Oswald MD - 06/19/2020 11:15 AM EST Preoperative Medication Instructions In preparation for surgery please continue all of your current medications with the following changes: Wolf Turcios Home Medication Instructions Prior to Surgery NUNO:[id number] Printed on:06/19/20 3465 Medication Information Take last dose on Take [...] planning on completing it. Please notify your associate professor of anthropology of this. Banophen 25 mg capsule Take [...] medications that contain aspirin, such as [place], Pepto- Bismol, Anacin), antiinflammatory medications such as Advil, Motrin, Ibuprofen, Naproxen, Aleve, [place], Pepto-Bismol, Anacin, Diclofenac, Voltaren, Daypro, Etodolac, Ketoprofen, Meloxicam, Piroxicam, Relafen, Nabumetone, etc. Also discontinue Vitamin C, Vitamin E, [place]-3 Fatty Acid, Fish Oil or Lovaza, as [...] Turcios Home Medication Instructions Prior to Surgery NUNO:[id number] Printed on:06/19/20 9304 Medication Information Take last dose on Take [...] planning on completing it. Please notify your associate professor of anthropology of this. Banophen 25 mg capsule Take [...] medications that contain aspirin, such as [place], Pepto- Bismol, Anacin), antiinflammatory medications such as Advil, Motrin, Ibuprofen, Naproxen, Aleve, [place], Pepto-Bismol, Anacin, Diclofenac, Voltaren, Daypro, Etodolac, Ketoprofen, Meloxicam, Piroxicam, Relafen, Nabumetone, etc. Also discontinue Vitamin C, Vitamin E, [place]-3 Fatty Acid, Fish Oil or Lovaza, as [...] Turcios Home Medication Instructions Prior to Surgery NUNO:[id number] Printed on:06/19/20 1115 Medication Information Take last [...] planning on completing it. Please notify your associate professor of anthropology of this. Banophen 25 mg capsule Take [...] medications that contain aspirin, such as [place], Pepto- Bismol, Anacin), antiinflammatory medications such as Advil, Motrin, Ibuprofen, Naproxen, Aleve, [place], Pepto-Bismol, Anacin, Diclofenac, Voltaren, Daypro, Etodolac, Ketoprofen, Meloxicam, Piroxicam, Relafen, Nabumetone, etc. Also discontinue Vitamin C, Vitamin E, [place]-3 Fatty Acid, Fish Oil or Lovaza, as [...] Turcios Home Medication Instructions Prior to Surgery NUNO:[id number] Printed on:06/19/20 1115 Medication Information Take last [...] planning on completing it. Please notify your associate professor of anthropology of this. Banophen 25 mg capsule Take [...] medications that contain aspirin, such as [place], Pepto- Bismol, Anacin), antiinflammatory medications such as Advil, Motrin, Ibuprofen, Naproxen, Aleve, [place], Pepto-Bismol, Anacin, Diclofenac, Voltaren, Daypro, Etodolac, Ketoprofen, Meloxicam, Piroxicam, Relafen, Nabumetone, etc. Also discontinue Vitamin C, Vitamin E, [place]-3 Fatty Acid, Fish Oil or Lovaza, as [...] Turcios Home Medication Instructions Prior to Surgery NUNO:[id number] Printed on:06/19/20 1113 Medication Information Take last dose on Take [...] planning on completing it. Please notify your associate professor of anthropology of this. Banophen 25 mg capsule Take [...] medications that contain aspirin, such as [place], Pepto- Bismol, Anacin), antiinflammatory medications such as Advil, Motrin, Ibuprofen, Naproxen, Aleve, [place], Pepto-Bismol, Anacin, Diclofenac, Voltaren, Daypro, Etodolac, Ketoprofen, Meloxicam, Piroxicam, Relafen, Nabumetone, etc. Also discontinue Vitamin C, Vitamin E, [place]-3 Fatty Acid, Fish Oil or Lovaza, as [...] Turcios Home Medication Instructions Prior to Surgery NUNO:[id number] Printed on:06/19/20 1115 Medication Information Take last [...] planning on completing it. Please notify your associate professor of anthropology of this. Banophen 25 mg capsule Take [...] medications that contain aspirin, such as [place], Pepto- Bismol, Anacin), antiinflammatory medications such as Advil, Motrin, Ibuprofen, Naproxen, Aleve, [place], Pepto-Bismol, Anacin, Diclofenac, Voltaren, Daypro, Etodolac, Ketoprofen, Meloxicam, Piroxicam, Relafen, Nabumetone, etc. Also discontinue Vitamin C, Vitamin E, [place]-3 Fatty Acid, Fish Oil or Lovaza, as [...] have insurance. CLAUDIO printed out information on [facility] and gave to Pt. CLAUDIO also provided Pt with the physician referral telephone number for [facility]. CLAUDIO met with Pt at bedside and gave PT resources. Pt has no other questions or concerns at this time. in this encounter* Tiffanie Deal RN - 01/10/2017 6:30 PM EDT Patient is alert and oriented x 4. Discharge instructions giving, patient verbalized understanding.Patient refused wheelchair escort. Discharge home, accompanied by patient's friend(Santos). * JohngabiValencia andrade, OPTOMETRIST PRESIDENT/PRACTICE OWNER FRONT END MECHANIC - 01/10/2017 4:48 PM EDT SW consulted to provide Pt with a list of primary care physicians. Pt doesn't have insurance. SW printed out information on [facility] and gave to Pt. SW also provided Pt with the physician referral telephone number for [facility]. SW met with Pt at bedside and [...] Ambriz CNP - 11/03/2019 12:30 PM EDT [facility] PROGR[facility] NOTE Assessment and Plan Wolf [...] does not livewith family/friends or in the jail in an effort to eliminate bad influences [...] any further needs at this time. Recommendation: [facility] available for further d/c needs as indicated [...] III, MD - 12/12/2019 9:55 AM EDT [facility] [address] [place] [address] Patient Name: Wolf Turcios Patient Age: 59 y.o. Patient : 1960 Date: 12/12/19 Progress Note Initial Visit Chief Complaint: Chief Complaint Patient presents with Right Hip - Pain Pain R hip pain, referred by PCP, xrays in [facility], was told he is bone on bone, [...] file Gets together: Not on file Attends evangelical service: Not on file Active member of [...] 12/11/2020 Scheduling Instructions: OK to schedule at [facility] and all ambulatory sites Fax script to: [facility]- [phone] [facility]-[phone] [phone] [facility] - [phone] Order Specific Question: Reason for Exam: Answer: [...] can allegedly stay with his daughter in [place] however we will do a social medical [...] Date Asthma COPD (chronic obstructive pulmonary disease) ([facility]) Emphysema/COPD ([facility]) Essential hypertension 01/10/2017 Home Medications: Prior to [...] file Gets together: Not on file Attends evangelical service: Not on file Active member of [...] observation level of care. I had a [id number] encounter with the patient on the day of discharge which included an appropriate physical exam. Discharge instructions and follow-up care were discussed in person with the patient. documented in this encounter* Angelika Hermosillo MD - 04/21/2020 9:20 AM EST [facility] PROGRESS NOTE Assessment and Plan Perpetual [...] Spent in Direct Patient Care: 30 Narrative: [employer] Mixer brought L shirt and size 30/32 pants in preparation for pt's discharge. Patients Response to Pastoral Care: Appeared to be well-engaged Planning for Future Visits: SANDY Lemon M.Div. Installment Dealer, [facility] * Devon Villareal PTA - [...] Modified independence(HOB elevated) Sit to Supine: Modified [place](HOB elevated) Skilled Intervention: Educated pt on pursed lip breathing during exertion Transfers Sit to Stand: Stand by assistance [employer] Sewer Systems Superintendent: 1 person, Gait belt Skilled Intervention: Min [...] length to normalize tracy. Cues for relaxed brush filler hand on AD and for decreased shoulder elevation [...] disposition). 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 Patient presented to [facility] with multifocal pneumonia. Therapy recommendations currently support penitentiary facility placement at discharge. Physical therapy: up to 5 days per week, [facility] 17; Occupational therapy: 21. Patient is in agreement with skilled facility placement. Action: SW following precert pending at [facility]. Addendum: CLAUDIO left a voicemail for Chetna at [facility] regarding precert status. Addendum: CLAUDIO received a voicemail from Chetna at [facility]. Chetna reports that this patient can be admitted today, 04/20. CLAUDIO messaged [facility] to arrange transport. Per physician, this patient is ready for discharge. Addendum: CLAUDIO arranged transport for 04/21/20 between 7pm-8pm with [facility]. CLAUDIO left a voicemail for Chetna, liaison with the [facility] to alert that this patient will be transported 04/21. [facility] to complete HENS. Addendum: Chetna confirmed receipt of message. This patient can be admitted into the [facility] on 04/21. Addendum: Per PM rounds, this SW met with patient at bedside to discuss plans to discharge to [facility]. SW provided this patient with the address. Patient requested that SW contact pastoral care for clothing. SW left a Kon[employer]i message for [employer] requesting clothing to room 802. SW explained that this patient will be going to SNF for rehab. Patient is agreeable at this time. Addendum: Per [facility], HENS has been complete. Recommendation: SW to follow for discharge planning. * Katina Hollis CNP - 04/20/2020 9:02 AM EST Pulmonary Progress Note Patient Name: Wolf Turcios Admit Date: MR #: [id number] : 1960 Wolf Turcios is a 59 [...] this patient discussed with Dr. Avila Hollis, VOCATIONAL REHABILITATION SUPERVISOR 04/20/20 9:02 AM Associated attestation - Ramon [...] Home Care Services: No Anticipated Facility Type: [facility] facility Anticipated Discharge Plan Anticipated Facility Type: [facility] facility Situation/Background: Patient is from home. Patient presented to [facility] with multifocal pneumonia. Therapy recommendations currently support penitentiary facility placement at discharge. Physical therapy: up to 5 days per week, [facility] 17; Occupational therapy: 21. Patient is in agreement with skilled facility placement. Action: SW awaiting precert. Recommendation: SW to follow for discharge plan. * Bekah Lemon - 04/19/2020 11:00 AM EST Spiritual Care Progress Note Completed by: Bekah Lemon Person(s) Present During this Visit: Patient Time Spent in Direct Patient Care: 45 Narrative: [employer] Mixer visited pt while rounding on unit. Pt shared an eagerness to tell his story. [employer] Mixer provided pastoral care as described below. Pastoral Care will remain available 29/12 upon request. Patients Response to Pastoral Care: Appeared to be well-engaged Planning for Future Visits: PRN, Pt requested on-going visits Patient's Spiritual Needs Assessment Sources of Connection Unable to Determine Beliefs and Practices Image of the [place] Role of [place] in Patient's Illness Spiritual Wellness - Activities and Resources Grief Assessment Expressed / Stated Feelings Attitude Towards Own Illness Understanding of Patients Coping Mechanisms Spiritual Diagnosis Awareness of the Sacred Facilitated Interventions Active Listening, Life Review, Validated Emotions/Feelings Spiritual and Emotional Outcomes Appreciative Resources Provided Bereavement Resources Spiritual Plan of Care Continue Healing Process Patient's Yazidism Needs Assessment Yazidism Connection Not Discussed Yazidism Home Taoism Zoroastrianism Affiliation Local Alevism Name Yazidism Resources Yazidism Rituals Yazidism Materials Provided Expressed Outcomes Expressed Gratitude Bekah Lemon M.Div. Installment Dealer, [facility] * Katina Hollis CNP - 04/19/2020 9:39 AM EST Pulmonary Progress Note Patient Name: Wolf Turcios Admit Date: MR #: [id number] : 1960 Wolf Turcios is a 59 [...] Hermosillo MD - 04/19/2020 9:35 AM EST [facility] PROGRESS NOTE Assessment and Plan Perpetual [...] Practices Image of the [place] Role of [place] in Patient's Illness Spiritual Wellness - Activities and Resources Grief Assessment Expressed / Stated Feelings Attitude Towards Own Illness Understanding of Patients Coping Mechanisms Spiritual Diagnosis Facilitated Interventions Spiritual and Emotional Outcomes Resources Provided Bereavement Resources Spiritual Plan of Care Patient's Yazidism Needs Assessment Yazidism Connection Yazidism Home Zoroastrianism Affiliation Local Alevism Name Yazidism Resources Yazidism Rituals Yazidism Materials Provided Expressed Outcomes Family / Caregiver [...] Name: Wolf Turcios Admit Date: MR #: [id number] : 1960 Dear: Karma Mark CNP (Family); [...] of COPD, tobacco usage, who presented to [place] on 04/14/2020 with c/o worsening dyspnea. Patient was recently admitted to [facility] early April for similar issue. [...] of Asthma, COPD (chronic obstructive pulmonary disease) ([facility]), Essential hypertension (01/10/2017), Hyperlipidemia, Polysubstance abuse ([facility]), PUD (peptic ulcer disease), Thoracic aortic aneurysm ([facility]), TIA (transient ischemic attack), and Tobacco Abuse. [...] 12.8 03/02/2020 This note was dictated using Offerpop/ Dictation Software and may contain errors that [...] Transfers Sit to Stand: Stand by assistance Water And Sewer Systems Superintendent: 1 person, Gait belt, Wheeled walker Skilled [...] disposition). 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 Avila Hollis CNP 04/18/20 9:15 AM * Joselin Reed LISW - 04/18/2020 8:56 AM EST COMPLEX DISCHARGE Date: 04/18/2020 Time: 8:56 AM Patient Name: Wolf Turcios Date of : 1960 Sex: Male Discharge Planning Living Arrangements: Spouse/significant other Support Systems: Spouse/significant other Assistance Needed: no Type of Residence: Homeless Prior to Admission Home Care Services: No Anticipated Facility Type: [facility] facility Anticipated Discharge Plan Anticipated Facility Type: [facility] facility Situation/Background: Patient is from home. Patient presented to [facility] with multifocal pneumonia. Therapy recommendations currently support penitentiary facility placement at discharge. Physical therapy: up to 5 days per week, [facility] 17; Occupational therapy: 21. Patient is in agreement with skilled facility placement. Action: This SW followed-up with admissions at [facility], . Per previous SW note, SNF referrals are currently pending at [facility], [facility], and [facility] Addendum: SW received a message from [facility] LiaisonYakov. This patient has been denied from [facility], [facility], [facility] Climateminder, and [facility]. Addendum: SW met with patient at bedside. SW discussed denials at [facility]. Patient is agreeable to initiate precert at [facility]. Patient requested clothing. SW contacted Pastoral Care to request clothing for this patient. Recommendation: SW to follow-up for SNF acceptance. * Baylee Pratt LSW - 04/17/2020 11:40 AM EST COMPLEX DISCHARGE Date: 04/17/2020 Time: 11:40 AM Patient Name: Wolf Turcios Date of : 1960 Sex: Male Anticipated Discharge Plan Anticipated Facility Type: [facility] facility Situation/Background: Patient is from home. Patient presented to [facility] with multifocal pneumonia. Therapy recommendations currently support penitentiary facility placement at discharge. Physical therapy: up to 5 days per week, [facility] 17; Occupational therapy: 21. Patient is in agreement with skilled facility placement. Action: pillar worker completed chart review. Previous RNCM provided patient with a skilled facility for review. This worker met with patient at bedside to introduce self, discuss role, and dischargeplanning options. Reviewed skilled facility list with patient. Patient is agreeable to this worker faxing referrals to [facility], [facility], [facility], and [facility]. pillar worker has faxed referrals to these facilities. Patient will require facility acceptance and precert through his insurance prior to discharge. Recommendation: pillar worker will follow-up on referrals regarding acceptance or denial and will continue to follow to assist with discharge planning needs as they arise. Addendum 5:32pm: pillar worker spoke with [facility] liaison Yakov who stated facility is unable to accept at this time due to not being able to meet behavior care needs. Per Yakov, [facility], [facility], would be willing to review patient's referral. Patient has been declined at [facility] due to not having any beds available. Pending referrals remain to [facility], [facility], and [facility]. * Devon Villareal PTA - 04/17/2020 11:22 [...] Transfers Sit to Stand: Stand by assistance Water [employer] Sewer Systems Superintendent: 1 person, Gait belt, Wheeled walker Skilled [...] disposition). 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 Patient was recently admitted to [facility] early April for similar issue. [...] of Asthma, COPD (chronic obstructive pulmonary disease) ([facility]), Essential hypertension (01/10/2017), Hyperlipidemia, Polysubstance abuse ([facility]), PUD (peptic ulcer disease), Thoracic aortic aneurysm ([facility]), TIA (transient ischemic attack), and Tobacco Abuse. [...] 12.8 03/02/2020 This note was dictated using Offerpop/ Dictation Software and may contain errors that were not corrected during editing. * Angelika Hermosillo MD - 04/17/2020 9:27 AM EST [facility] PROGRESS NOTE Assessment and Plan Perpetual [...] Hermosillo MD - 04/16/2020 11:49 AM EST [facility] PROGRESS NOTE Assessment and Plan Perpetual [...] Medications and Transcriptions * Edmundo Ayala Jr., SPORTS CENTRE MANAGER - 04/16/2020 9:00 AM EST Physical Therapy [...] by assistence Lateral Transfers: Stand by assistance Water And Sewer Systems Superintendent: Gait belt, 1 person, Rollator Skilled Intervention: [...] R hip pain (reports due for R ISABLE but surgery on hold until improved DC disposition). 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 Urologic history: Gjts-Vtbts-Dzg Scrotal US- Bilateral epididymal cysts. No testicular [...] file Gets together: Not on file Attends evangelical service: Not on file Active member of [...] MD documented in this encounter* Michelle Lindsey, VOCATIONAL REHABILITATION SUPERVISOR - 06/14/2020 1:15 PM EST Telephone Visit Via Phone Call Patient ID: Wolf Turcios is a 60 y.o. male Patient phone : [phone] This visit has been fully reviewed with [...] 2017. 5. Hx covid 04/2020. Provider location: [address] [facility] [address] [place] [phone] Patient location: [address] [place] [address] I have spent 21-30 minutes with the patient discussing current HPI. documented in this encounter* Kaitlynn Ambriz CNP - 07/19/2020 12:22 PM EST [facility] PROGRESS NOTE Assessment and Plan Wolf Turcios [...] Aspiration PNA Reported choking on nicorette gum SPORTS CENTRE MANAGER Recently was treated for PNA and has [...] Kaitlynn AmbrizLAM - 07/18/2020 2:23 PM EST [facility] PROGRESS NOTE Assessment and Plan Wolf Turcios [...] Aspiration PNA Reported choking on nicorette gum SPORTS CENTRE MANAGER Recently was treated for PNA and has [...] IV, MD - 07/20/2020 8:47 AM EST [facility] Patient Name:Wolf Turcios Date:07/22/20 Patient [...] observation level of care. I had a [id number] encounter with the patient on the day of discharge which included an appropriate physical exam. Discharge instructions and follow-up care were discussed in person with the patient. documented in this encounter* Betty Dean PA-C - 08/13/2020 12:12 PM EST [facility] PROGRESS NOTE Assessment and Plan Wolf Turcios [...] Tan MD - 08/12/2020 7:19 AM EST [facility] PROGRESS NOTE Assessment and Plan Wolf Turcios [...] Radiology, Medications and Transcriptions * Mariaelena Lo [facility],PharmD - 08/11/2020 8:19 AM EST PHARMACOTHERAPY NOTE: Antimicrobial Therapy Follow-up Assessment / Plan: oWlf Turcios is a 60 y.o. male initiated [...] Tan MD - 08/11/2020 7:54 AM EST [facility] PROGRESS NOTE Assessment and Plan Wolf Turcios [...] Davila DO - 08/10/2020 7:26 AM EST [facility] PROGRESS NOTE Assessment and Plan Wolf Turcios [...] none Type of Residence: Private residence, Other (Comment)([employer] services) Prior to Admission Home Care Services: [...] from previous admission. [facility]. Address on [address] [place] [address]. Called patient's cell phone and spoke with him over the phone. 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 Patient states that he does have his oxygen concentrator there in his room.Patient owns a wheeled walker. He would like [facility] if home health services are needed. He will need to utilize his [facility] medicaid insurance for transportation p:[phone]. * Pablo Davila DO - 08/09/2020 7:42 AM EST [facility] PROGRESS NOTE Assessment and Plan Wolf Turcios [...] complaint: Bilateral epididymal cysts ? Urologic history: Zugr-Eoqgn-Czh Scrotal US- Bilateral epididymal cysts. No testicular [...] file Gets together: Not on file Attends evangelical service: Not on file Active member of [...] FoundDocuments on File Type Date Recorded Patient Ancient Art Curator Expl anation Advance Directives and Livin g Will 08/04/2019 9:27 AM Latest Code Status on File Code Status Date Activated Date Inactivated Comments Full Code 06/22/2018 1:48 PM Full Code 12/13/2017 11:36 PM 01/09/2018 7:06 PM Documents on File Type Date Recorded Patient Ancient Art Curator Expl anation Advance Directives and Livin g Will 08/11/2019 9:27 AM Latest Code Status on File Code Status Date Activated Date Inactivated Comments Full Code 06/22/2018 1:48 PM 08/11/2019 12:01 PM Documents on File Type Date Recorded Patient Ancient Art Curator Expl anation Advance Directives and Livin g Will 10/21/2019 12:30 PM Latest Code Status on File Code Status Date Activated Date Inactivated Comments Full Code 06/22/2018 1:48 PM 08/11/2019 12:01 PM Full Code 12/13/2017 11:36 PM 01/09/2018 7:06 PM Documents on File Type Date Recorded Patient Ancient Art Curator Expl anation Advance Directives and Livin g Will 08/17/2019 12:30 PM Documents on File Type Date Recorded Patient Ancient Art Curator Expl anation Advance Directives and Livin g Will 11/02/2019 12:52 PM Latest Code Status on File Code Status Date Activated Date Inactivated Comments Full Code 11/02/2019 3:17 PM Full Code - Unverified 11/02/2019 2:40 PM 11/02/2019 3:1 7 PM Full Code 06/22/2018 1:48 PM 08/11/2019 12:01 PM Documents on File Type Date Recorded Patient Ancient Art Curator Expl anation Advance Directives and Livin g Will 11/02/2019 12:52 PM Latest Code Status on File Code Status Date Activated Date Inactivated Comments Full Code 11/02/2019 3:17 PM 11/03/2019 4:21 PM Full Code - Unverified 11/02/2019 2:40 PM 11/02/2019 3:1 7 PM Full Code 06/22/2018 1:48 PM 08/11/2019 12:01 PM Documents on File Type Date Recorded Patient Ancient Art Curator Expl anation Advance Directives and Livin g Will 12/12/2019 12:00 AM Latest Code Status on File Code Status Date Activated Date Inactivated Comments Full Code 11/02/2019 3:17 PM 11/03/2019 4:21 PM Documents on File Type Date Recorded Patient Ancient Art Curator Expl anation Advance Directives and Livin g Will 01/14/2020 12:00 AM Documents on File Type Date Recorded Patient Ancient Art Curator Expl anation Advance Directives and Livin g Will 03/19/2020 4:08 PM Documents on File Type Date Recorded Patient Ancient Art Curator Expl anation Advance Directives and Livin g Will 04/11/2020 8:23 PM Latest Code Status on File Code Status Date Activated Date Inactivated Comments Full Code 04/11/2020 11:46 PM 04/12/2020 3:22 PM Full Code 03/28/2020 5:28 PM 03/30/2020 4:54 PM Full Code 11/02/2019 3:17 PM 11/03/2019 4:21 PM Documents on File Type Date Recorded Patient Ancient Art Curator Expl anation Advance Directives and Livin g Will 04/13/2020 5:14 PM Latest Code Status on File Code Status Date Activated Date Inactivated Comments Full Code 04/14/2020 1:43 AM 04/21/2020 11:54 PM Full Code 04/11/2020 11:46 PM 04/12/2020 3:22 PM Documents on File Type Date Recorded Patient Ancient Art Curator Expl anation Advance Directives and Livin g Will 05/28/2020 12:43 PM Documents on File Type Date Recorded Patient Ancient Art Curator Expl anation Advance Directives and Livin g Will 05/28/2020 12:43 PM Latest Code Status on File Code Status Date Activated Date Inactivated Comments Full Code 04/14/2020 1:43 AM 04/21/2020 11:54 PM Full Code 04/11/2020 11:46 PM 04/12/2020 3:22 PM Full Code 03/28/2020 5:28 PM 03/30/2020 4:54 PM Full Code 11/02/2019 3:17 PM 11/03/2019 4:21 PM Documents on File Type Date Recorded Patient Ancient Art Curator Expl anation Advance Directives and Livin g Will 06/19/2020 12:43 PM Documents on File Type Date Recorded Patient Ancient Art Curator Expl anation Advance Directives and Livin g Will 07/05/2020 12:43 PM Documents on File Type Date Recorded Patient Ancient Art Curator Expl anation Advance Directives and Livin g Will 07/10/2020 12:43 PM Documents on File Type Date Recorded Patient Ancient Art Curator Expl anation Advance Directives and Livin g Will 07/17/2020 3:05 PM Latest Code Status on File Code Status Date Activated Date Inactivated Comments Full Code 07/17/2020 7:16 PM 07/19/2020 5:51 PM Full Code 04/14/2020 1:43 AM 04/21/2020 11:54 PM Documents on File Type Date Recorded Patient Ancient Art Curator Expl anation Advance Directives and Livin g Will 12/12/2019 12:00 AM Documents on File Type Date Recorded Patient Ancient Art Curator Expl anation Advance Directives and Livin g Will 07/26/2020 12:00 AM Latest Code Status on File Code Status Date Activated Date Inactivated Comments Full Code 07/25/2020 12:48 PM 07/26/2020 1:13 PM Full Code 07/17/2020 7:16 PM 07/19/2020 5:51 PM Full Code 04/14/2020 1:43 AM 04/21/2020 11:54 PM Documents on File Type Date Recorded Patient Ancient Art Curator Expl anation Advance Directives and Livin g Will 08/08/2020 11:07 PM Latest Code Status on File Code Status Date Activated Date Inactivated Comments Full Code 08/09/2020 2:50 AM 08/13/2020 4:55 PM Full Code 07/25/2020 12:48 PM 07/26/2020 1:13 PM Documents on File Type Date Recorded Patient Ancient Art Curator Expl anation Advance Directives and Livin g Will 12/29/2019 8:46 AM Documents on File Type Date Recorded Patient Ancient Art Curator Expl anation Advance Directives and Livin g Will 12/29/2019 8:46 AM Documents on File Type Date Recorded Patient Ancient Art Curator Expl anation Advance Directives and Livin g Will 09/21/2020 12:03 PM Documents on File Type Date Recorded Patient Ancient Art Curator Expl anation Advance Directives and Livin g Will 10/03/2020 7:45 PM Documents on File Type Date Recorded Patient Ancient Art Curator Expl anation Advance Directives and Livin g Will 12/13/2020 12:45 PM Documents on File Type Date Recorded Patient Ancient Art Curator Expl anation Advance Directives and Livin g Will 12/13/2020 12:45 PM Latest Code Status on File Code Status Date Activated Date Inactivated Comments Full Code 08/09/2020 2:50 AM 08/13/2020 4:55 PM Full Code 07/25/2020 12:48 PM 07/26/2020 1:13 PM Full Code 07/17/2020 7:16 PM 07/19/2020 5:51 PM Documents on File Type Date Recorded Patient Ancient Art Curator Expl anation Advance Directives and Livin g Will 01/24/2021 11:13 AM Documents on File Type Date Recorded Patient Ancient Art Curator Expl anation Advance Directives and Livin g Will 01/24/2021 11:13 AM Documents on File Type Date Recorded Patient Ancient Art Curator Expl anation Advance Directives and Livin g Will 01/28/2021 9:23 AM Latest Code Status on File Code Status Date Activated Date Inactivated Comments Full Code 01/28/2021 3:05 PM Full Code 08/09/2020 2:50 AM 08/13/2020 4:55 PM Documents on File Type Date Recorded Patient Ancient Art Curator Expl anation Advance Directives and Livin g Will 01/28/2021 9:23 AM Latest Code Status on File Code Status Date Activated Date Inactivated Comments Full Code 01/28/2021 3:05 PM 01/29/2021 3:24 PM Full Code 08/09/2020 2:50 AM 08/13/2020 4:55 PM Documents on File Type Date Recorded Patient Ancient Art Curator Expl anation Advance Directives and Livin g Will 02/05/2021 6:55 PM Documents on File Type Date Recorded Patient Ancient Art Curator Expl anation Advance Directives and Livin g Will 02/05/2021 6:55 PM Latest Code Status on File Code Status Date Activated Date Inactivated Comments Full Code 01/28/2021 3:05 PM 01/29/2021 3:24 PM Documents on File Type Date Recorded Patient Ancient Art Curator Expl anation Advance Directives and Livin g Will 05/24/2021 11:17 AM Latest Code Status on File Code Status Date Activated Date Inactivated Comments Full Code 05/24/2021 6:01 PM 05/26/2021 11:26 AM Full Code 01/28/2021 3:05 PM 01/29/2021 3:24 PM Documents on File Type Date Recorded Patient Ancient Art Curator Expl anation Advance Directives and Livin g Will 05/24/2021 11:17 AM Latest Code Status on File Code Status Date Activated Date Inactivated Comments Full Code 05/24/2021 6:01 PM 05/26/2021 11:26 AM Full Code 01/28/2021 3:05 PM 01/29/2021 3:24 PM Documents on File Type Date Recorded Patient Ancient Art Curator Expl anation Advance Directives and Livin g Will 07/16/2021 3:13 PM Documents on File Type Date Recorded Patient Ancient Art Curator Expl anation Advance Directives and Livin g [...] Will No May 18 12:45pm Power of Block Saw Operator No May 18, 2024 12:45pm Living Will No May 21 12:11am Power of Block Saw Operator No May 21, 2024 12:11am Living Will No June 02 6:17pm Power of Block Saw Operator No June 02, 2024 6:17pm Living Will No July 05 8:25am Power of Block Saw Operator No July 05, 2024 8:25am Living Will No May 31 12:18am Power of Block Saw Operator No May 31, 2024 12:18am Advance Directive Response Recorded Date/ Time Living Will No May 18 12:45pm Power of Block Saw Operator No May 18, 2024 12:45pm Living Will No May 21 12:11am Power of Block Saw Operator No May 21, 2024 12:11am Living Will No Jorje 26th, 2 024 6:17pm Power of Block Saw Operator No June 02, 2024 6:17pm Living Will No July 05 8:25am Power of Block Saw Operator No July 05, 2024 8:25am Living Will No August 18, 2024 10:09am Power of Block Saw Operator No August 18 10:09am Living Will No May 31 12:18am Power of Block Saw Operator No May 31, 2024 12:18am Advance Directive Response Recorded Date/ Time Living Will No June 02 6:17pm Do you have a Healthcare Power of Block Saw Operator? No June 02, 2024 6:17pm Living Will No July 05 8:25am Do you have a Healthcare Power of Block Saw Operator? No July 05, 2024 8:25am Living Will No August 18, 2024 10:09am Do you have a Healthcare Power of Block Saw Operator? No August 18, 2024 10:09am Living Will No May 31 12:18am Do you have a Healthcare Power of Block Saw Operator? No May 31, 2024 12:18am Date Activated [...] Do you have a Healthcare Power of Block Saw Operator? No August 18, 2024 10:09am Advance Directive Response Recorded Date/ Time Do you have a Healthcare Power of Block Saw Operator? No February 01, 2025 3:53pm Reason for Referral Status Reason Specialty Diagnoses / Procedures Referre d By Contact Referred To Contact Closed Radiology Diagnoses Testicle swelling Procedures US Testicle With Color Flow Karma Mark, VOCATIONAL REHABILITATION SUPERVISOR [address] [place] [address] Status Reason Specialty Diagnoses / Procedures Referre d By Contact Referred To Contact Closed Radiology Diagnoses Retention of urine, unspecified Procedures US Renal and Bladder Karma Mark, VOCATIONAL REHABILITATION SUPERVISOR [address] [id number] Status Reason Specialty Diagnoses / Procedures Referred By Contact Referred To Contact Authorized Specialty Services Required/[facility] Diagnoses Primary osteoarthritis of right hip Teresa Merino III, MD [address] [place] [address] Status Reason Specialty Diagnoses / Procedures Referred By Contact Referred To Contact New Request Radiology Diagnoses Chronic obstructive pulmonary disease, unspecified COPD type (HCC) Multifocal pneumonia Tobacco use History of drug use Procedures CT Chest Without Contrast Michelle Lindsey CNP [address] [place] [address] Status Reason Specialty Diagnoses / Procedures Referred By Contact Referred To Contact Pending Review Michelle Lindsey CNP [address] [place] [address] Status Reason Specialty Diagnoses / Procedures Referre d By Contact Referred To Contact Closed Michelle Lindsey CNP [address] [place] [address] Status Reason Specialty Diagnoses / Procedures Referred By Contact Referred To Contact Authorized Gastroenterology Diagnoses Globus sensation Kaitlynn Ambriz, LAM [address] [phone] Phil Borjas MD [address] [phone] Status Reason Specialty Diagnoses / Procedures Referred By Contact Referred To Contact Authorized Pulmonology Diagnoses Chronic obstructive pulmonary disease with acute exacerbation (HCC) Kaitlynn Ambriz, VOCATIONAL REHABILITATION SUPERVISOR [address] [phone] Ariel Mcintosh II, MD [address] [facility] [address] [place] [address] Status Reason Specialty Diagnoses / Procedures Referred By Contact Referred To Contact Authorized Orthopedic Surgery Diagnoses Primary osteoarthritis of right hip Max Wright IV, MD [address] [facility] [address] [place] [address] Poli Peralta MD [address] [facility] [address] [phone] Status Reason Specialty Diagnoses / Procedures Referred By Contact Referred To Contact Authorized Specialty Services Required/[facility] General Surgery Diagnoses Bilateral inguinal hernia without obstruction or gangrene, recurrence not specified Leonardo Perla MD [address] [facility] [address] [phone] Specialty Diagnoses / Procedures Referred By Contac t Referred To Contact Orthopedic Surgery Diagnoses Chronic low back pain with left-sided sciatica, unspecified back pain laterality Karma Mark, VOCATIONAL REHABILITATION SUPERVISOR [address] [place] [address] Elpidio Teran DO [address] [phone] Referral ID Status Reason Start Date Expiration Date V isits Requested Visits Authorized [id number] Authorized 05/17/2021 05/17/2022 1 1 Specialty Diagnoses / Procedures Referred By Contac t Referred To Contact Radiology Diagnoses Chronic low back pain with left-sided sciatica, unspecified back pain laterality Impaired sensation to light touch Left leg weakness Asymmetrical deep tendon reflexes Procedures MR Lumbar Spine Without Contrast Janusz Myrick PA-C [address] [phone] Referral ID Status Reason Start Date Expiration Date V isits Requested Visits Authorized [id number] New Request 06/25/2021 06/25/2022 1 1 Specialty Diagnoses / Procedures Referred By Contac t Referred To Contact Rehabilitation Diagnoses Chronic low back pain with left-sided sciatica, unspecified back pain laterality Sciatica of left side Elpidio Teran, DO [address] [place] [address] Referral ID Status Reason Start Date Expiration Date V isits Requested Visits Authorized [id number] Authorized 08/05/2021 08/05/2022 1 1 Specialty Diagnoses / Procedures Referred By Contac t Referred To Contact Pain Medicine Diagnoses Chronic low back pain with left-sided sciatica, unspecified back pain laterality Esha Bergeron PA-C [address] [phone] Referral ID Status Reason Start Date Expiration Date V isits Requested Visits Authorized [id number] Authorized 08/15/2021 08/15/2022 1 1 Specialty Diagnoses / Procedures Referred By Contac t Referred To Contact Diagnoses Other emphysema Health care maintenance Procedures PFT STANDARD Ivonne Henry MD [address] [address] Referral ID Status Reason Start Date Expiration Date V isits Requested Visits Authorized [id number] Pending Review 10/02/2023 10/26/2024 1 1 Specialty Diagnoses / Procedures Referred By Contac t Referred To Contact Diagnoses Screening for lung cancer Procedures CT LUNG CANCER SCREENING CHG COMPUTED TOMOGRAPHY THORAX LW DOSE LNG CA SCR C- Adia, Chuy C, SHORE WORKING SUPERVISOR-VOCATIONAL REHABILITATION SUPERVISOR [address] [facility] [address] [place] [address] Referral ID Status Reason Start Date Expiration Date V isits Requested Visits Authorized [id number] Pending Review 10/05/2023 10/29/2024 1 1 Specialty Diagnoses / Procedures Referred By Contac t Referred To Contact Ivonne Henry MD [address] [address] Referral ID Status Reason Start Date Expiration Date V isits Requested Visits Authorized [id number] Pending Review 1 1 Specialty Diagnoses / Procedures Referred By Alexa t Referred To Contact Cardiac Rehabilitation Diagnoses COPD with acute exacerbation (HCC) System, Provider Not In Cardio Pulm [facility] [address] [place] [address] Referral ID Status Reason Start Date Expiration Date V isits Requested Visits Authorized [id number] Authorized 11/10/2023 11/09/2024 1 1 Chief Complaint [...] note may be different from the original. [facility] [place] and Physical Patient Name: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 [id number] PCP: Physician No Chief Complaint Patient presents [...] last 30 some years, describes essentially a 58-glsx-waxu smoking history. Over the last week is [...] embolism. Emphysema. Ascending aortic aneurysm 4.1 cm. [facility] Workstation ID: [id number] XR Chest 1 View Final Result Scattered prominence of the interstitium is noted in the mid to upper lung zones. This is nonspecific and may be related to portable technique. Mild venous congestion not excluded entirely. Upright two view chest may be more helpful Workstation ID: [id number] CT Head Or Brain Without Contrast Final [...] Conduction: conduction normal QRS axis: normal normal TX interval normal QRS interval QT interval (ms): [...] to establish such. Will check out with [facility] at 2218. Clinical Impression: SNOMED CT(R) 1. Chronic obstructive pulmonary disease, unspecified COPD type (HCC) CHRONIC OBSTRUCTIVE LUNG DISEASE 2. Chest pain, unspecified type CHEST PAIN 3. Paresthesia of right arm PARESTHESIA OF UPPER LIMB PLAN Admit to [facility] (Please note that portions of this note [...] rhythm BPM: 81 Conduction: conduction normal normal TX interval normal QT interval Other findings: LVH Comments: No acute ST segment elevation Pt given AVS and verbalizing understanding of discharge instructions including medication administration. Pt requests cab voucher at this time, denies further needs. I personally interviewed the patient. I personally examined the patient. I discussed the patient with SALON COORDINATOR/PA. I agree with the SALON COORDINATOR/PA treatment plan. I agree with the SALON COORDINATOR/PA plan of care. I agree with the SALON COORDINATOR/PA dispo as documented. 57-year-old male presents emergency department with chest pain and shortness of breath. He tells me symptoms started at rest while he was watching his grandson play softball. On my physical examination he is nontoxic. He has some wheezing on auscultation of lungs. Heart sounds are clear. Laboratory radiographic evaluation reviewed. I reviewed this patient's chart in [facility]. He has a CCTA from less than [...] different from the original. ED PROVIDER NOTE [facility] EMERGENCY DEPARTMENT NAME: Wolf Turcios AGE: 57 y.o. : 1960 VISIT DATE: 01/09/2018 CSN: [id number] PCP: Physician No Chief Complaint Patient presents [...] endorsing PND. Patient denies a history of VT. He is endorsing a past medical history of hypertension hyperlipidemia. He denies any diabetes. Patient denies a family history of VT. Patient had a coronary CT done on [...] Colorless, Yellow Clarity, Urine Clear Clear Specific Hendricks 1.016 1.005 - 1.025 pH, Urine 6.0 [...] care in stable condition. Follow-up Information 1. [facility] Jorge Luis. Specialty: Primary Care [address] [place] [id number] Contact information for after-discharge care Follow-up information has not been specified. Discharge Medication List as of 01/10/2018 12:55 AM START taking these medications Details predniSONE (DELTASONE) 20 MG tablet Take 2 (two) tablets (40 mg total) by mouth daily for 5 days., Starting Thu01/10/2018, Until Thu01/15/2018, Print Nilsa Quigley PA-C 01/10/18 0237 Associated Order(s): ECG 12-LEAD ECG 12 Lead Date/Time: 01/09/2018 7:17 PM Performed by: ELIJAH REIS Authorized by: ELIJAH REIS Interpreted by ED attending physician Rhythm: sinus rhythm BPM: 76 Conduction: conduction normal normal TX interval normal QT interval Clinical impression: normal [...] segments normal T Waves: T waves normal TX Interval: 150 QRS Interval: 84 QT Interval: [...] Contact Information Primary Emergency Contact: Day Turcios [facility] Relation: Child Secondary Emergency Contact: DAOLINWOODMALINA Mobile Relation: Friend Primary Care Physician: Karma Mark CNP Preferred Pharmacy: [facility] Does this match pharmacy listed with [employer] CENTRE MANAGER: Yes Plan for discharge reviewed: Yes How will patient get home: Cab Reviewed call light process: Yes [facility] completed: Yes Visitor information entered: Yes Associated [...] the patient. I discussed the patient with SALON COORDINATOR/PA. I agree with the SALON COORDINATOR/PA treatment plan. I agree with the SALON COORDINATOR/PA plan of care. I agree with the SALON COORDINATOR/PA dispo as documented. Patient presents emerged from [...] encounter This nurse attempted to call [facility] for report but was unsuccessful. Facility answered [...] warrant urgent or inpatient treatment Will ask /[facility] to provide pt with mental health resources for out-patient f/u if he would decide to pursue. Problem: Breathing Pattern - Ineffective Goal: Effective breathing pattern Outcome: Partially Met CONSULT NOTE (Addiction Medicine) Patient Name: Wolf Turcios Admit Date: MR #: [id number] : 1960 Physicians: Karma Mark, LAM (Family); [...] sign off at this time. Please call [phone] for questions/concerns and we can determine if [...] file Gets together: Not on file Attends evangelical service: Not on file Active member of [...] the care of this patient. Please call [phone] or send me secure chat for any [...] rhythm and sinus tachycardia BPM: 114 normal TX interval normal QRS interval normal QT interval [...] suitability for the planned procedure from patient's associate professor of anthropology. Patient Instructions for OFF SITE SURGERY Prior [...] makeup or lotions. ? Remove all nail kosovan for surgeries involving extremities. ? Please remember to bring both your insurance card and a photo ID with you on the day of surgery. After your surgery: ? If you are having outpatient surgery you must have a licensed water tanker driver take you home. The expectation is that this water tanker driver will remain at the hospital for [...] suitability for the planned procedure from patient's associate professor of anthropology. Patient Instructions for OFF SITE SURGERY Prior [...] makeup or lotions. ? Remove all nail kosovan for surgeries involving extremities. ? Please remember to bring both your insurance card and a photo ID with you on the day of surgery. After your surgery: ? If you are having outpatient surgery you must have a licensed water tanker driver take you home. The expectation is that this water tanker driver will remain at the hospital for the duration of your procedure. ? You are advised to have a family member with you for at least 24 hours after being under Anesthesia. documented in this encounter I personally interviewed the patient. I personally examined the patient. I discussed the patient with SALON COORDINATOR/PA. I agree with the SALON COORDINATOR/PA treatment plan. I agree with the SALON COORDINATOR/PA plan of care. I agree with the SALON COORDINATOR/PA dispo as documented. Patient presents for shortness [...] the patient. I discussed the patient with SALON COORDINATOR/PA. I agree with the SALON COORDINATOR/PA treatment plan. I agree with the SALON COORDINATOR/PA plan of care. I agree with the SALON COORDINATOR/PA dispo as documented. . documented in this [...] cleared for discharge. Cab called and will garbage pick up man at ED entrance. Resting on room air oxygen saturation is 94%. Pre-exercising - 92% Exertion on room air- 88% Exertion with oxygen 94% on 2L Post exercise with oxygen 94% on 2L IINC-XD-GCKE ENCOUNTER FOR HOME MEDICAL EQUIPMENT PATIENT: Wolf Turcios : 1960 Statement of Care: I certify that Wolf Turcios is under my care and that I, a Nurse Practitioner, Physician's Stoneworker, or Resident working with me, had a jqny-nf-seuv encounter with this patient today to evaluate and discuss the need for home medical equipment. I certify that based on the findings of this evaluation, which included but was not limited to the ubfa-fn-zamr requirements, the following home medical equipment is [...] the patient. I discussed the patient with SALON COORDINATOR/PA. I agree with the SALON COORDINATOR/PA treatment plan. I agree with the SALON COORDINATOR/PA plan of care. I agree with the SALON COORDINATOR/PA dispo as documented. I have personally taken [...] EKG shows sinus tachycardia rate of 114 TX interval normal 132 QRS normal 80, no [...] and is feeling improved. Low risk by [place] syncope rules documented in this encounter AVS [...] Nurses completing head to toe skin assessment [id number] Pt belongings: Wallet and perez with security [...] qualifying for sepsis I discussed case with [facility] agreed to accept him to their service [...] suitability for the planned procedure from patient's associate professor of anthropology. Patient Instructions for OFF SITE SURGERY Prior [...] makeup or lotions. ? Remove all nail kosovan for surgeries involving extremities. ? Please remember to bring both your insurance card and a photo ID with you on the day of surgery. After your surgery: ? If you are having outpatient surgery you must have a licensed water tanker driver take you home. The expectation is that this water tanker driver will remain at the hospital for the duration of your procedure. ? You are advised to have a family member with you for at least 24 hours after being under Anesthesia. documented in this encounter Please see the recommendations from patient's associate professor of anthropology dated 06/21/2020. Patient is at increased risk for postoperative pulmonary complications. It is recommended to check PFTs. These have been ordered by patient's associate professor of anthropology at the 06/14/[address] scan was [...] suitability for the planned procedure from patient's associate professor of anthropology. Patient Instructions for OFF SITE SURGERY Prior [...] makeup or lotions. ? Remove all nail kosovan for surgeries involving extremities. ? Please remember to bring both your insurance card and a photo ID with you on the day of surgery. After your surgery: ? If you are having outpatient surgery you must have a licensed water tanker driver take you home. The expectation is that this water tanker driver will remain at the hospital for the duration of your procedure. ? You are advised to have a family member with you for at least 24 hours after being under Anesthesia. documented in this encounter Message left for patient to call back for additional information obtained. Dr. Oswald's note sent to Dr. Perla via secure chat Please see the recommendations from patient's associate professor of anthropology dated 06/21/2020. Patient is at increased risk for postoperative pulmonary complications. It is recommended to check PFTs. These have been ordered by patient's associate professor of anthropology at the 06/14/[address] scan was [...] suitability for the planned procedure from patient's associate professor of anthropology. Patient Instructions for OFF SITE SURGERY Prior [...] makeup or lotions. ? Remove all nail kosovan for surgeries involving extremities. ? Please remember to bring both your insurance card and a photo ID with you on the day of surgery. After your surgery: ? If you are having outpatient surgery you must have a licensed water tanker driver take you home. The expectation is that this water tanker driver will remain at the hospital for the duration of your procedure. ? You are advised to have a family member with you for at least 24 hours after being under Anesthesia. documented in this encounter Dr. Oswald's note sent to Dr. Perla via secure chat Please see the recommendations from patient's associate professor of anthropology dated 06/21/2020. Patient is at increased risk for postoperative pulmonary complications. It is recommended to check PFTs. These have been ordered by patient's associate professor of anthropology at the 06/14/[address] scan was [...] suitability for the planned procedure from patient's associate professor of anthropology. Patient Instructions for OFF SITE SURGERY Prior [...] makeup or lotions. ? Remove all nail kosovan for surgeries involving extremities. ? Please remember to bring both your insurance card and a photo ID with you on the day of surgery. After your surgery: ? If you are having outpatient surgery you must have a licensed water tanker driver take you home. The expectation is that this water tanker driver will remain at the hospital for [...] Expiration Date Visits Re quested Visits Authorized [id number] 1 1 Reason Comments Leg Swelling Status [...] Testicle With Color Flow Karma Mark CNP [facility] [place] [address] Status Reason Specialty Diagnoses / Procedures Referre d By Contact Referred To Contact Closed Radiology Diagnoses Retention of urine, unspecified Procedures US Renal and Bladder Karma Mark CNP [facility] [place] [address] Reason Comments Syncope Status Reason Specialty Diagnoses [...] recurrence not specified Leonardo Perla MD [address] [facility] [address] [place] [address] [facility] [address] [place] [address] Status Reason Specialty Diagnoses / Procedures Re [...] Interest Urology Diagnoses Epididymal cyst Karma Mark, VOCATIONAL REHABILITATION SUPERVISOR [address] [place] [address] [facility] U[facility]h Guera [address] [facility] [address] [place] [address] Reason Comments Chest Pain Reason Comments Leg Pain Reason Comments Grape stuck in throat Reason Onset Date Comments Community Resource Linkage 01/10/2021 Reason Comments Pre-op Exam COPD Reason Onset Date Comments Medication Refill 01/23/2021 Specialty Diagnoses / Procedures Referred By Alexa sutton Referred To Contact Diagnoses Unilateral primary osteoarthritis, right hip Procedures TX TOTAL HIP ARTHROPLASTY Teresa Terry MD [address] [place] [address] Referral ID Status Reason Start Date Expiration Date Visits Re quested Visits Authorized [id number] 01/14/2021 01/14/2022 1 1 Reason Comments Follow-up [...] pain is decreasing. Follow-up Reason Comments Pain SALON COORDINATOR. Lumbar pain. N/t L LE knee down. PL 12/15. Ongoing pain for about 10 years. No previous sx, injections, PT. XR today. Specialty Diagnoses / Procedures Referred By Alexa sutton Referred To Contact Orthopedic Surgery Diagnoses Chronic low back pain with left-sided sciatica, unspecified back pain laterality Karma Mark, VOCATIONAL REHABILITATION SUPERVISOR [address] [place] [address] Elpidio Teran, [address] [place] [address] Referral ID Status Reason Start Date Expiration Date Visits Re quested Visits Authorized [id number] Closed 05/17/2021 05/17/2022 1 1 Reason Comments Follow-up Lumbar follow-up. N/ t L LE. PL 01/15. Review MRI results-in [facility]. Reason Comments New Patient Eyes constantly runs Specialty Diagnoses / Procedures Referred By Contac t Referred To Contact Internal Medicine / General Medicine Diagnoses est care pt takes gabapentin just moved from [place] - has [place] medicaid and will transfer to [place] medicaid. phone breaking up so cannot get ins # Procedures NEW PRIMARY CARE Self, Self Ivonne Henry MD [address] [facility] [address] [place] [address] Referral ID Status Reason Start Date Expiration Date V isits Requested Visits Authorized [id number] Pending Review 10/02/2023 10/26/2024 1 1 Reason Onset Date Comments Results 10/05/2023 Specialty Diagnoses / Procedures Referred By Contac t Referred To Contact Diagnoses Other emphysema Health care maintenance Procedures PFT STANDARD Ivonne Henry MD [address] [facility] [address] [place] [address] Referral ID Status Reason Start Date Expiration Date V isits Requested Visits Authorized [id number] Pending Review 10/02/2023 10/26/2024 1 1 Specialty Diagnoses / Procedures Referred By Contac t Referred To Contact Diagnoses Screening for lung cancer Procedures CT LUNG CANCER SCREENING CHG COMPUTED TOMOGRAPHY THORAX LW DOSE LNG CA SCR Karyn- Chuy Cheek, SHORE WORKING SUPERVISOR-VOCATIONAL REHABILITATION SUPERVISOR [address] [facility] [address] [place] [address] Referral ID Status Reason Start Date Expiration Date V isits Requested Visits Authorized [id number] Pending Review 10/05/2023 10/29/2024 1 1 Reason Onset Date Comments Results 10/19/2023 Reason Onset Date Comments Results 10/19/2023 Specialty Diagnoses / Procedures Referred By Contac t Referred To Contact Diagnoses COPD with acute exacerbation (HCC) Referral ID Status Reason Start Date Expiration Date Visits Re quested Visits Authorized [id number] 1 1 Reason Onset Date Comments Insurance 10/22/2023 Reason Comments Shortness of Breath Specialty Diagnoses / Procedures Referred By Contac t Referred To Contact Diagnoses COPD exacerbation Kirk Ragland MD [address] [facility] [address] [place] [address] [facility] [address] [place] [address] Referral ID Status Reason Start Date Expiration Date Visits Re quested Visits Authorized [id number] 1 1 Reason Comments Follow-up Pt states he's here for a hospital follow up for bronchitis day before yesterday Reason Onset Date Comments Referral 11/05/2023 Reason Comments Prostate Cancer Initial consult Specialty Diagnoses / Procedures Referred By Contac t Referred To Contact Radiation Oncology Diagnoses Prostate cancer (HCC) Elijah Sanchez MD [address] [facility] [address] [place] [address] Phone: tel: fax: Jihan Rodriguez MD [address] [place] [address] Phone: tel: fax: Referral ID Status Reason Start Date Expiration Date Visits Re quested Visits Authorized [id number] Closed 02/14/2025 02/14/2026 1 1 Reason Comments [...] of breath. Apparently was walking to an [facility] he got so short of breath [...] Date Asthma COPD (chronic obstructive pulmonary disease) ([facility]) Emphysema/COPD ([facility]) Essential hypertension 01/10/2017 Past Surgical History Past [...] file Gets together: Not on file Attends evangelical service: Not on file Active member of club or organization: Not on file Attends meetings of clubs or organizations: Not on file Relationship status: Not on file Other Topics Concern Not on file Social History Narrative Not on file Allergies Allergies Allergen Reactions Codeine Itching Medications Wolf Turcios Home Medication Instructions Prior to Surgery NUNO:[id number] Printed on:08/11/19 1412 Medication Information Take last [...] exacerbation of chronic obstructive pulmonary disease (COPD) ([facility]) Labs Reviewed BASIC METABOLIC PANEL - Abnormal; [...] Procedure Abnormality Status --------- ------ CBC Auto Differential[[id number]] Abnormal Final result Please view results for [...] and this morning he walked to an [employer] and he was so short of breath [...] ordered at this time. ED PROVIDER NOTE [facility] EMERGENCY DEPARTMENT NAME: Wolf Turcios AGE: 59 y.o. : 1960 VISIT DATE: 11/02/2019 CSN: [id number] PCP: García Gunn CNP Chief Complaint Patient [...] file Gets together: Not on file Attends evangelical service: Not on file Active member of [...] ms QTC Calculation (Bezet) 406 ms P Bethany -10 degrees R Bethany 3 degrees T Bethany -12 degrees POC Glucose Result Value Ref [...] Final Result No acute process. Workstation ID: [id number] Procedures MDM 59 y/o WM smoker with [...] documented in this encounter ED PROVIDER NOTE [facility] EMERGENCY DEPARTMENT NAME: Wolf Turcios AGE: 59 y.o. : 1960 VISIT DATE: 01/14/2020 CSN: [id number] PCP: Karma Mark CNP Chief Complaint Patient presents with Shortness of Breath [id number] male arrives to the ER today with [...] Date Asthma COPD (chronic obstructive pulmonary disease) ([facility]) Emphysema/COPD ([facility]) Essential hypertension 01/10/2017 Past Surgical History: Procedure [...] file Gets together: Not on file Attends evangelical service: Not on file Active member of [...] Why: Follow up ER visit [facility] [address] Contact information for after-discharge care Follow-up information has not been specified. New Prescriptions predniSONE (DELTASONE) 20 MG tablet Take 3 (three) tablets (60 mg total) by mouth daily for 4 days . Lotus Cruz CNP 01/14/20 8541 Pt resting comfortably with call light in [...] scene by CPD. 98% RA, NSR on cardiac technician. Pt reports this was a sudden onset of SOB, reports he has used his inhaler without relief since this AM. Bed: 41 Expected date: Expected time: Means of arrival: Comments: M3; sob; anderson documented in this encounter PCP: Karma Mark, VOCATIONAL REHABILITATION SUPERVISOR Chief Complaint Patient presents with Shortness of [...] Date Asthma COPD (chronic obstructive pulmonary disease) ([facility]) Emphysema/COPD ([facility]) Essential hypertension 01/10/2017 Past medical history reviewed. [...] file Gets together: Not on file Attends evangelical service: Not on file Active member of [...] Turcios Home Medication Instructions Prior to Surgery NUNO:[id number] Printed on:04/11/20 9213 Medication Information Take last dose on Take [...] Cough 3. SOB (shortness of breath) Plan- [facility] admit Condition- stable PROCEDURES (if any, during [...] at the following links: For Healthcare Providers: https://www.fda.gov/media/264352/download For Patients: https://www.fda.gov/media/012596/download CBC AND DIFFERENTIAL Narrative: The following orders were created for panel order CBC w/ Diff. Procedure Abnormality Status --------- ------ CBC Auto Differential[[id number]] Abnormal Final result Please view results for [...] on 4 L NC. ED PROVIDER NOTE [facility] GENERAL MEDICINE NAME: Wolf Turcios AGE: 59 y.o. : 1960 VISIT DATE: 04/13/2020 CSN: [id number] PCP: Karma Mark CNP No chief complaint [...] Date Asthma COPD (chronic obstructive pulmonary disease) ([facility]) Essential hypertension 01/10/2017 Hyperlipidemia Polysubstance abuse ([facility]) PUD (peptic ulcer disease) Thoracic aortic aneurysm ([facility]) TIA (transient ischemic attack) Tobacco Abuse Past [...] file Gets together: Not on file Attends evangelical service: Not on file Active member of [...] Colorless, Yellow Clarity, Urine Clear Clear Specific Hendricks 1.020 1.005 - 1.025 pH, Urine 6.0 [...] ms QTC Calculation (Bezet) 400 ms P Bethany 76 degrees R Bethany 63 degrees T Bethany 74 degrees ECG 12 Lead Result Value Ref Range Ventricular Rate 114 BPM Atrial Rate 114 BPM P-R Interval 136 ms QRS Duration 90 ms Q-T Interval 308 ms QTC Calculation (Bezet) 424 ms P Bethany 76 degrees R Bethany 57 degrees T Bethany 74 degrees ECG 12 Lead Result Value Ref Range Ventricular Rate 112 BPM Atrial Rate 112 BPM P-R Interval 130 ms QRS Duration 82 ms Q-T Interval 318 ms QTC Calculation (Bezet) 434 ms P Bethany 70 degrees R Bethany 39 degrees T Bethany 68 degrees ECG 12 Lead Result Value Ref Range Ventricular Rate 75 BPM Atrial Rate 75 BPM P-R Interval 144 ms QRS Duration 104 ms Q-T Interval 376 ms QTC Calculation (Bezet) 419 ms P Bethany 67 degrees R Bethany 65 degrees T Bethany 63 degrees CBC Auto Differential Result Value [...] Mark CNP. Specialty: Nurse Practitioner Uli Mcnally [facility] [address] 2. Michelle Lindsey CNP. Specialties: Pulmonology, Pulmonary Disease, Critical Care Medicine, Nurse Practitioner Why: Tele pulm follow up: Telehealth Appointment with Michelle Lindsey CNP Jun 2:00 [place] [address] 3. [facility]. Why: Open 24 hours 7 days a week. Walk-in or call for admission. [address] [id number] Contact information for after-discharge care Follow-up information has not been specified. New Prescriptions This print group is not available in inpatient encounters. Please contact a naphtha washing system operator. Bethany Nguyen PA-C 04/13/202028 Bethany Nguyen PA-C [...] 14 nausea fulp documented in this encounter [facility] EMERGENCY DEPARTMENT EMERGENCY MEDICINE NOTE PCP: Karma Mark CNP Encounter Date: 05/28/20 Chief Complaint: Chief Complaint Patient presents with Shortness of Breath History of Presenting Illness: Wolf Turcios is a 60 y.o. male with a past medical history that includes has a past medical history of Asthma, COPD (chronic obstructive pulmonary disease) ([facility]), Essential hypertension (01/10/2017), Hyperlipidemia, Polysubstance abuse ([facility]), PUD (peptic ulcer disease), Thoracic aortic aneurysm ([facility]), TIA (transient ischemic attack), and Tobacco Abuse.. [...] 1. Karma Mark CNP. Specialty: Nurse Practitioner [address] [place] [address] Contact information for after-discharge care Follow-up information has not been specified. . ([employer] was used to transcribe this note) [...] Procedure Abnormality Status --------- ------ CBC Auto Differential[[id number]] Abnormal Final result Please view results for [...] file Gets together: Not on file Attends evangelical service: Not on file Active member of [...] confirmed covid test in chart, pt reports alf test was positive. Bed: 25 Expected date: Expected time: Means of arrival: Comments: M22; SARAH; Sontag documented in this encounter Patient okay to eat per Dr. Rebolledo. Patient provided with boxed meal. ED PROVIDER NOTE [facility] EMERGENCY DEPARTMENT NAME: Wolf Turcios AGE: 60 y.o. : 1960 VISIT DATE: 07/05/2020 CSN: [id number] PCP: Karma Mark CNP Chief Complaint Patient presents with Shortness of Breath History provided by: Patient interpreter deaf used: No Shortness of Breath Associated symptoms: [...] file Gets together: Not on file Attends evangelical service: Not on file Active member of [...] ms QTC Calculation (Bezet) 436 ms P Bethany 85 degrees R Bethany 72 degrees T Bethany 85 degrees CBC Auto Differential Result Value [...] hx of COPD. 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 Pt 92% on RA. Pt [...] states he needs surgery. ED PROVIDER NOTE [facility] EMERGENCY DEPARTMENT NAME: Wolf Turcios AGE: 60 y.o. : 1960 VISIT DATE: 07/10/2020 CSN: [id number] PCP: Karma Mark, VOCATIONAL REHABILITATION SUPERVISOR No chief complaint on file. 60-year-old male [...] file Gets together: Not on file Attends evangelical service: Not on file Active member of [...] No fracture identified involving the right knee. [employer] Workstation ID: [id number] Lumbar Spine 2-3 Views (Standard) Final Result Changes of DJD and DDD as described above. No acute fractures identified. [employer] Workstation ID: [id number] Knee Right 2 [...] No fracture identified involving the right knee. [employer] Workstation ID: [id number] Hip Right With Pelvis 2-3 Views (Routine) Final Result Severe osteoarthritis of the right hip joint with loss of the joint space, subchondral cyst formation, bony sclerosis and osteophyte formation. No fracture of the right femoral neck or intratrochanteric region. The rest of the right femur appears unremarkable. Soft tissue swelling anterior to the patella. No fracture identified involving the right knee. [employer] Workstation ID: [id number] Procedures MDM Number of [...] 1. Dani Nash DO. Specialty: Orthopedic Surgery [address] [place] [address] Contact information for after-discharge care Follow-up information has not been specified. Yenni Bowen CNP 07/10/20 1152 Pt arrives via EMS for complaints of a fall. Pt states that he has chronic right hip pain. 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 Pt was ambulatory after the fall. Bed: 47 Expected date: Expected time: Means of arrival: Comments: Medic 14; fall; dr. crabtree documented in this encounter Pt removed from BiPaP, on room air O2 saturation is 97%. ED PROVIDER NOTE [facility] EMERGENCY DEPARTMENT NAME: Wolf Turcios AGE: 60 y.o. : 1960 VISIT DATE: 07/17/2020 CSN: [id number] PCP: Karma Mark VOCATIONAL REHABILITATION SUPERVISOR No chief complaint on file. 60-year-old male [...] file Gets together: Not on file Attends evangelical service: Not on file Active member of [...] lower lung infiltrate. No new abnormality identified. [employer] Workstation ID: [id number] Procedures MDM Number of [...] of last year he states from a alf. He at this point seems to be doing better on BiPAP, hopeful to liberate here soon in the emergency department. We will add azithromycin for COPD exacerbation. Twelve-lead EKG interpreted by myself as a sinus tachycardia with a rate of 110. Normal axis. No ST segment changes, T waves inverted in aVL although concordant with the polarity of aVL. QTc, QRS, TX normal. Initial blood gas with pH of [...] a Covid swab in April at a alf which he states was positive. For this [...] file Gets together: Not on file Attends evangelical service: Not on file Active member of [...] Turcios Home Medication Instructions Prior to Surgery NUNO:[id number] Printed on:07/25/20 [facility] Medication Information Take last dose on [...] Procedure Abnormality Status --------- ------ CBC Auto Differential[[id number]] Abnormal Final result Please view results for [...] Otherwise no acute focal process. Workstation ID: [id number] CT Pulmonary Arteries Final Result 1. No evidence of pulmonary embolism or acute pulmonary abnormality. 2. Decreased consolidation in the superior segment of the right lower lobe, compatible with resolving pneumonia. Right middle lobe opacities have resolved. 3. Severe emphysema. Workstation ID: [id number] Medications Ordered/Given During ED Visit Medications sodium [...] called at this time. ED PROVIDER NOTE [facility] EMERGENCY DEPARTMENT NAME: Wolf Turcios AGE: 60 y.o. : 1960 VISIT DATE: 07/26/2020 CSN: [id number] PCP: Karma Mark CNP Chief Complaint Patient presents with Fall History provided by: Patient interpreter deaf used: No Fall Pertinent negatives include no [...] file Gets together: Not on file Attends evangelical service: Not on file Active member of [...] ms QTC Calculation (Bezet) 419 ms P Bethany 77 degrees R Bethany 68 degrees T Bethany 73 degrees CBC Auto Differential Result Value [...] Mark CNP. Specialty: Nurse Practitioner [facility] [address] Contact information for after-discharge care Follow-up [...] monitoring in place. PCP - Karma Mark, VOCATIONAL REHABILITATION SUPERVISOR Chief Complaint Patient presents with Cough HPI [...] file Gets together: Not on file Attends evangelical service: Not on file Active member of [...] Turcios Home Medication Instructions Prior to Surgery NUNO:[id number] Printed on:08/08/20 0236 Medication Information Take last dose on Take [...] at the following links: For Healthcare Providers: https://www.[employer].gov/media/396335/download For Patients: https://www.Hazel[employer].gov/media/110017/download NT PRO BNP - Normal Narrative: Pride [...] Procedure Abnormality Status --------- ------ CBC Auto Differential[[id number]] Abnormal Final result Please view results for [...] mL (1,000 mL Intravenous New Bag 08/08/20 7370) cefTRIAXone (ROCEPHIN) IVPB 1 g (premix) (has no administration in time range) azithromycin (ZITHROMAX) 500 mg in sodium chloride (NS) 0.9% 250 mL (vialmate) (500 mg Intravenous New Bag 08/08/202322) ketorolac (TORADOL) injection 15 mg (15 mg Intravenous Given 08/08/202322) Procedures Note: To expedite correspondence this note was generated by [employer] voice recognition software. All imaging has been read by a Radiologist. Darek Mccormack PA-C 08/08/20 1423 EMS reports pt was recently diagnosed with [...] Indication: COPD Exacerbation 821 (Given - Provider: Lotus Holly RN) 926 (Given - Provider: Inge [...] RN) 09 (Given - Provider: Inge Chavez, RAY) gabapentin (NEURONTIN) capsule 300 mg 300 mg, [...] not available)0847 (Given - Provider: Osiris Weber, A P MECHANIC)1313 (Given - Provider: Jihan Moore, A P MECHANIC)2040 (Given - Provider: Serge Centeno, ALL) 0259 (Given - Provider: Serge Centeno, ALL)0804 (Given - Provider: Marisol Valdes, A P MECHANIC)1400 (Due) methylPREDNISolone sod suc(PF) (SOLU-medrol) Injection 125 [...] 0836 (Given - Provider: Tavon Flor RN) furosemide (LASIX) tablet 20 mg [...] dose 1951 (Given - Provider: Wolf Montiel, A P MECHANIC) ipratropium-albuteroL (DUO-NEB) 0.5-2.5 mg/3 ml nebulizer solution 3 mL 3 mL, Inhalation, 4 times daily (RT), First dose on 10/25/23 at 2120 2120 (Not Given - Provider: Chelle Mcleod, A P MECHANIC - Reason: Unreviewed Transfer Orders) 0814 (Given - Provider: Mirta Cuello, A P MECHANIC)1220 (Given - Provider: Mirta Culelo, A P MECHANIC)1613 (Given - Provider: Janusz Hess, A P MECHANIC)2030 (Given - Provider: Tereso Boland, A P MECHANIC) 1005 (Given - Provider: Devon Still, A P MECHANIC)1411 (Given - Provider: Devon Still, A P MECHANIC) lisinopriL (PRINIVIL,ZESTRIL) tablet 30 mg 30 mg, [...] RAY) 1417 (Given - Provider: Devon Still, A P MECHANIC) pantoprazole (PROTONIX) EC tablet 40 mg 40 [...] PLACED TUBE OR TUBE less than 14 Swazi. To administer dissolved tablet(s) mix with 4 [...] Devaughn Meyer RN)2002 (Rate/Dose Verify - Provider: Flaquita Crawford RN)2200 (Rate/Dose Verify - Provider: Flaquita [...] Care Teams (unrecognized sec tion and content) Dye Winch Operator Relationship Specialty Start Date End Date Karma Mark, VOCATIONAL REHABILITATION SUPERVISOR [address] [place] [address] PCP - General Nurse Practitioner 01/14/20 Dye Winch Operator Relationship Specialty Start Date End Date Karma Mark, VOCATIONAL REHABILITATION SUPERVISOR [address] [place] [address] PCP - General Nurse Practitioner 01/14/20 Dye Winch Operator Relationship Specialty Start Date End Date Karma Mark, VOCATIONAL REHABILITATION SUPERVISOR [address] [place] [address] PCP - General Nurse Practitioner 01/14/20 Dye Winch Operator Relationship Specialty Start Date End Date Karma Mark, VOCATIONAL REHABILITATION SUPERVISOR [address] [place] [address] PCP - General Nurse Practitioner 01/14/20 Dye Winch Operator Relationship Specialty Start Date End Date Karma Mark, LAM [address] [place] [address] PCP - General Nurse Practitioner 01/14/20 Dye Winch Operator Relationship Specialty Start Date End Date Karma Mark, VOCATIONAL REHABILITATION SUPERVISOR [address] [place] [address] PCP - General Nurse Practitioner 01/14/20 Dye Winch Operator Relationship Specialty Start Date End Date ThomasKarma suárez, VOCATIONAL REHABILITATION SUPERVISOR [address] [place] [address] PCP - General Nurse Practitioner 01/14/20 Dye Winch Operator Relationship Specialty Start Date End Date Karma Mark, VOCATIONAL REHABILITATION SUPERVISOR [address] [place] [address] PCP - General Nurse Practitioner 01/14/20 Dye Winch Operator Relationship Specialty Start Date End Date Karma Mark, VOCATIONAL REHABILITATION SUPERVISOR [address] [place] [address] PCP - General Nurse Practitioner 01/14/20 Dye Winch Operator Relationship Specialty Start Date End Date Karma Mark, VOCATIONAL REHABILITATION SUPERVISOR [address] [place] [address] PCP - General Nurse Practitioner 01/14/20 Dye Winch Operator Relationship Specialty Start Date End Date Karma Mark, VOCATIONAL REHABILITATION SUPERVISOR [address] [place] [address] PCP - General Nurse Practitioner 01/14/20 Dye Winch Operator Relationship Specialty Start Date End Date Karma Mark, VOCATIONAL REHABILITATION SUPERVISOR [address] [place] [address] PCP - General Nurse Practitioner 01/14/20 Dye Winch Operator Relationship Specialty Start Date End Date Karma Mark, VOCATIONAL REHABILITATION SUPERVISOR [address] [place] [address] PCP - General Nurse Practitioner 01/14/20 Dye Winch Operator Relationship Specialty Start Date End Date Karma Mark, VOCATIONAL REHABILITATION SUPERVISOR [address] [place] [address] PCP - General Nurse Practitioner 01/14/20 Dye Winch Operator Relationship Specialty Start Date End Date Karma Mark, VOCATIONAL REHABILITATION SUPERVISOR [address] [facility] [place] [address] PCP - General Nurse Practitioner 01/14/20 Dye Winch Operator Relationship Specialty Start Date End Date Karma Mark Dani, VOCATIONAL REHABILITATION SUPERVISOR [address] [place] [address] PCP - General Nurse Practitioner 01/14/20 Dye Winch Operator Relationship Specialty Start Date End Date Karma Mark, VOCATIONAL REHABILITATION SUPERVISOR [address] [place] [address] PCP - General Nurse Practitioner 01/14/20 Dye Winch Operator Relationship Specialty Start Date End Date Ivonne Henry MD [address] [place] [phone] PCP - General Internal Medicine 10/02/23 Dye Winch Operator Relationship Specialty Start Date End Date Ivonne Henry MD [address] [place] [phone] PCP - General Internal Medicine 10/02/23 Dye Winch Operator Relationship Specialty Start Date End Date Ivonne Henry MD [address] [place] [phone] PCP - General Internal Medicine 10/02/23 Dye Winch Operator Relationship Specialty Start Date End Date Ivonne Henry MD [address] [place] [phone] PCP - General Internal Medicine 10/02/23 Dye Winch Operator Relationship Specialty Start Date End Date Ivonne Henry MD [address] [place] [id number] [address] PCP - General Internal Medicine 10/02/23 Dye Winch Operator Relationship Specialty Start Date End Date Ivonne Henry MD [address] [place] [address] [place], [place] [id number] PCP - General Internal Medicine 10/02/23 Dye Winch Operator Relationship Specialty Start Date End Date Ivonne Henry MD [address] [place] [address] PCP - General Internal Medicine 10/25/23 Dye Winch Operator Relationship Specialty Start Date End Date Ivonne Henry MD [address] [place] [id number] PCP - General Internal Medicine 10/02/23 Dye Winch Operator Relationship Specialty Start Date End Date Ivonne Henry MD [address] PCP - General Internal Medicine 10/02/23 Dye Winch Operator Relationship Specialty Start Date End Date Ivonne Henry MD [address] PCP - General Internal Medicine 10/02/23 11/03/23 Ivonne Henry MD [address] [place] [address] PCP - General Internal Medicine 11/04/23 Dye Winch Operator Relationship Specialty Start Date End Date Ivonne Henry MD [address] [place] [facility] [place] [phone] PCP - General Internal Medicine 11/04/23 Dye Winch Operator Relationship Specialty Start Date End Date Ivonne Henry MD [address] [place] [address] [place], [place] [phone] PCP - General Internal Medicine 11/04/23 Dye Winch Operator Relationship Specialty Start Date End Date Ivonne Henry MD [address] [place] [address] PCP - General Internal Medicine 11/04/23 Dye Winch Operator Relationship Specialty Start Date End Date Ivonne Henry MD [address] [place] [address] PCP - General Internal Medicine 10/25/23 Team [...] Provider Active Start: May 18, 2024 Dr. iNcolas Hall , Other Provider Active Start: May 18, 2024 Dr. Elijah Guerrero DO Attending Provider Active Start: May 18, [...] Iker Blackwell MD Other Provider Active Start: [facility] 2024 Dr. Eron Enrique MD Attending Provider [...] September 21, 2024 End: September 21, 2024 Dye Winch Operator Relationship Specialty Start Date End Date Ivonne Henry MD [address] [place] [address] [place] [address] PCP - General Internal Medicine 10/25/23 Dye Winch Operator Relationship Specialty Start Date End Date Ivonne Henry MD [address] [place] [address] [place] [address] PCP - General Internal Medicine 10/25/23 Dye Winch Operator Relationship Specialty Start Date End Date Ivonne Henry MD [address] [place] [address] [place] [address] PCP - General Internal Medicine 10/25/23 Dye Winch Operator Relationship Specialty Start Date End Date Ivonne Henry MD [address] [place] [address] [place] [phone] PCP - General Internal Medicine 10/25/23 Team [...] November 25, 2024 End: November 25, 2024 Dye Winch Operator Relationship Specialty Start Date End Date Ivonne Henry MD [address] [facility] [address] [place] [address] PCP - General Internal Medicine 10/25/23 Team [...] February 01, 2025 End: February 01, 2025 Dye Winch Operator Relationship Specialty Start Date End Date Ivonne Henry MD [address] [place] [address] PCP - General Internal Medicine 10/25/23 Dye Winch Operator Relationship Specialty Start Date End Date Ivonne Henry MD [address] [place] [address] PCP - General Internal Medicine 10/25/23 Dye Winch Operator Relationship Specialty Start Date End Date Ivonne Henry MD [address] [place] [address] PCP - General Internal Medicine 10/25/23 Dye Winch Operator Relationship Specialty Start Date End Date Ivonne Henry MD [address] [place] [address] PCP - General Internal Medicine 10/25/23 Dye Winch Operator Relationship Specialty Start Date End Date Ivonne Henry MD [address] [place] [address] [place] [address] PCP - General Internal Medicine 10/25/23 Dye Winch Operator Relationship Specialty Start Date End Date Ivonne Henry MD [address] [place] [address] [place] [address] PCP - General Internal Medicine 10/25/23 Team [...] Attending physician Active Start: March 03, 2025 Dye Winch Operator Relationship Specialty Start Date End Date Ivonne Henry MD [address] [place] [address] [place] [address] PCP - General Internal Medicine 10/25/23 Dye Winch Operator Relationship Specialty Start Date End Date Ivonne Henry MD [address] [place] [address] PCP - General Internal Medicine 10/25/23 Goals [...] section and content) DATE CREATED AUTHOR 10/14/2024 [facility] DATE CREATED AUTHOR AUTHOR'S ORGANIZ ATION 10/20/2024 [facility] DATE CREATED AUTHOR AUTHOR'S ORGANIZ ATION 10/20/2024 [facility] DATE CREATED AUTHOR AUTHOR'S ORGANIZ ATION 03/25/2025 [facility] DATE CREATED AUTHOR AUTHOR'S ORGANIZ ATION 04/01/2025 [facility] nt DATE CREATED AUTHOR AUTHOR'S ORGANIZ ATION 04/12/2025 [facility] DATE CREATED AUTHOR AUTHOR'S JACEKHIRAM ATNOLA 04/16/2025 [facility] DATE CREATED AUTHOR AUTHOR'S AZ ATION 04/19/2025 [facility] FOR RECORDS PERTAINING TO PATIENTS WHO [...] BE BASED ON THE PRIMARY CLINICAL RECORDS. [facility] [employer] [facility]. provides no warranty or guarantee of the accuracy or completeness of information in this document.
[2025-06-03 23:01] VITALS: BP 157/94; PULSE 85; RESP 20; O2SAT 95
[2025-06-03 23:08] VITALS: BP 157/54; PULSE 89; RESP 20; TEMP 36.8; O2SAT 95
[2025-06-03 23:17] LABS: Anion Gap 8 (7-18); BUN 15 mg/dL (4-19); BUN/Creat Ratio 21.3 RATIO (10-20); Calcium,Total 9.4 mg/dL (7.6-11.0); Carbon Dioxide 34.2 mmol/L (20.0-29.0); Chloride 102 mmol/L (96-106); Estimated Creatinine Clearance 98.31 ml/min (50-250); Glucose 98 mg/dL (70-99); Potassium 3.6 mmol/L (3.5-5.1)
[2025-06-04] VITALS (16 sets, daily range): BP systolic 128–169; BP diastolic 74–103; PULSE 86–99; RESP 14–20; TEMP 36.6–36.8; O2SAT 93–100; BMI 21.4
--- NOTE | 2025-06-04 00:02 | CT_ITS ---
PROCEDURE: BRAIN/HEAD WITHOUT CONTRAST 06/03/2025 REASON FOR EXAM: DIZZINESS TECHNIQUE: Procedure Code: CTBR Modality: CT Procedure: BRAIN/HEAD WITHOUT CONTRAST Coronal and Sagittal reconstruction series were provided. One or more dose reduction techniques were used (e.g., Automated exposure control, adjustment of the mA and/or kV according to patient size, use of iterative reconstruction technique. COMPARISON: None available. FINDINGS: There is no extra-axial or intra-axial intracranial hemorrhage. No mass effect or midline shift is seen. The ventricles, sulci, and cisterns are normal in size and shape for the patient's age. There is normal jessica-white matter differentiation. The posterior fossa is grossly unremarkable. The skull is unremarkable. Visualized paranasal sinuses are clear. The mastoid air cells show normal translucency. CT/Brain/Head without Contrast IMPRESSION: No intracranial hemorrhage. No mass effect or midline shift. Reading [facility]
[2025-06-04 00:07] LABS: Mucous, Urine 0 SEEN /hpf (<or=2+); Squamous Epithelial Cells - UA 0 SEEN /hpf (0-5)
[2025-06-04 00:18] LABS: Color, Urine Yellow (Yellow); Glucose, Dipstick Normal (Normal); Ketone-Dipstick Negative (Negative); Leukocyte Esterase-Dipstick Negative /ul (Negative); Nitrite-Dipstick Negative (Negative); Occult Blood-Urine Negative /ul (Negative); Protein-Dipstick Negative (Negative); Specific Gravity, Urine 1.015 (1.002-1.030); Urine Bilirubin Dipstick Negative (Negative)
[2025-06-04 00:57] LABS: Red Blood Cells-Urine 0-5 SEEN /hpf (0-5)
--- OUTSIDE RECORDS SUMMARY | 2025-06-04 06:49 | XMS RPT_ITS | CCD ---
Author Organization [facility] Inform ion Partnership [facility] Care Team Providers Care Railroad Operator Name Role Phone No, Physician Unavailable Unavailable Unavailable Primary Care Provider Unavailabl e No, Physician Primary Care Provider Unavailabl e No, Physician Primary Care Provider Unavailabl e García Gunn Primary Care Provider Karma Mark Primary Care Provider Karma Mark Primary Care Provider Karma Mark Primary Care Provider Thomas [employer] Primary Care Provide r Thomas [employer] Primary Care Provide r Ivonne Henry MD Primary Care Provider [phone] Ivonne Henry MD Primary Care Provider [phone] Ivonne Henry MD Primary Care Provider [phone] Ivonne Henry MD Primary Care Provider [phone] Iker Blackwell MD Primary Care Provider Dr. Dior Candelaria DO Emergency Provider Dr. Nicolas Hall DO Admit Provider [phone] Dr. Nicolas Hall DO Other Provider [phone] Dr. Elijah Guerrero DO Attending Provider Dr. Elijah Guerrero DO Other Provider Dr. Kunal Stone MD Emergency Provider Dr. [...] Care Provider Iker Blackwell MD Attending Provider [phone] Iker Blackwell MD Referring Provider Dr. Werner Hogan DO Emergency Provider [phone] Rosalva BOYER, Iker Primary Care Physician [phone] LATISHA WOOTEN Attending Physician [phone] KVNG ESCOTO Nurse Practitioner [phone] Iker Blackwell MD Attending Physician [phone] Genaro BOYER, Dr. Shaver Attending Physician Dr. Werner Hogan DO Attending Physician [phone] Werner Hogan DO Emergency Department Physician [...] Care Unavailable Jopperi, Elijah Attending Unavailable Jopperi, Eljiah Consulting Unavailable Mosteller, Nicolas Admitting Unavailable Mosteller, [...] Acetaminophen (9 sources) Acetaminophen Drug Allergy 1 [facility] Opioid Agonists (13 sources) Codeine Drug Allergy 7 Itching, Hives [facility] (20 sources) codeine; Translations: [CODEINE] Drug Allergy 7 Itching, Hives [facility] Work Phone: (20 sources) Acetaminophen; Translations: [ACETAMINOPHEN] Drug Allergy 1 [facility] (20 sources) Ibuprofen; Translations: [IBUPROFEN] Drug Allergy 1 [facility] (13 sources) Lisinopril; Translations: [LISINOPRIL] Drug Allergy [address] [place] [address] Comment on above: per Dr. Hdz (1 source) Codeine Drug Allergy 5 [facility] Repository (1 source) Lisinopril Drug Allergy 5 [facility] Repository Medications Current Medications Medication Drug Class(es) Dates Sig (Normalized) Sig (Original) acetaminophen 325 mg / oxyCODONE hydrochloride 5 mg oral tablet (8 sources) Opioid Agonist Start: 07-05-2024 take 1 tablet by mouth every six hours as needed for pain [id number] 200 actuat albuterol 0.09 mg/actuat metered dose [...] 4 hours scheduled (RT), First dose on [facility] 04/14/20 at 0400 Start: 04-13-2020 End: [...] 08/11/2019 08/18/2019 Active take 1 capsule by [facility] every eight hours as needed [...] 2 times daily PRN, muscle spasms, Starting [facility] 04/14/20 at 0233 Start: 04-12-2020 End: [...] extended release oral tablet (8 sources) Uncompetitive F-knrfov-O-aspartate Receptor Antagonist, Sigma-1 Agonist Start: 05-18-2024 diclofenac [...] (Error) docusate sodium 50 mg / sennosides, mcfp 8.6 mg oral tablet (4 sources) Start: [...] times per day . 0 Active nystatin [id number] unt/ml oral suspension (20 sources) Polyene Antifungal Start: 05-18-2024 take [id number] [IU] by mouth four times daily Start: 05-18-2023 End: 10-31-2023 take 10 mL by mouth four times daily Nystatin 611822 UNIT/ML oral suspension Swish and swallow 10 mL 4 times daily. 05/18/2023 Active Start: 12-07-2020 nystatin (MYCO STATIN) 100,000 unit/mL suspension Start: 07-24-2020 End: 08-09-2020 take 733294 [IU] by mouth four times daily nystatin [...] Oral, EVERY 6 HOURS NEEDED, Starting on Atmmy 10/29/23 at 2005, Until 10/31/23 at 1412, [...] PRN, fever 100.4 F or greater, Starting [facility] 11/02/19 at 1533 Start: 11-02-2019 End: [...] IVPB 3.375 g (premix) polyethylene glycol 3350 84128 mg powder for oral solution (15 sources) [...] PLACED TUBE OR TUBE less than 14 Brazilian. To administer dissolved tablet(s) mix with 4 [...] 01-28-2021 End: 01-28-2021 rocuronium (ZEMURON) injection sennosides, mcfp 8.6 mg oral tablet (1 source) Start: [...] (Error) Start: 11-21-2020 take 2 tablets by [facility] once daily traZODone (DESYREL) 50 [...] Respiratory failure; insufficiency; arrest (adult) (20 sources) Togdc-tg-udliujg respiratory failure; Translations: [Acute and chronic respiratory [...] Patrick 04-13-2025 Course ID C1 Feb 2025 [facility] Course Intent Curative [facility] Course Start Date [id number] [facility] Elapsed Days 3 [facility] First Treatment Date 04/10/2025 1:23 PM [facility] Fractions Treated to Date 4 [facility] Last Treatment Date 04/13/2025 10:45 AM [facility] Name Prostate [facility] Plan Primary Reference Point Prostate [facility] Prescribed Dose per Fraction (cGy) 250 [facility] Prescription Dose (cGy) 7000 [facility] Reference Point Prostate [facility] h Session Dosage Given (cGy) 250 [facility] Total Dose to Date (cGy) 1000 [facility] Total Fractions Prescribed 28 [facility] Duplex ultrasound of carotid artery reportOrdered By: Elijah Stevens on 03-06-2025 Study report [facility] [address] [place] [address] Carotid Duplex Ultrasound 03/03/25 1013 MR#: [id number] Acct: [id number] Name: WOLF TURCIOS Jr. Rep #:[id number] : 1960 64 From: Elijah Brewster Attending Dr: Dr. George Amaro MD Status: REG CLI Ordering Dr: George Amaro MD Date: Location: [facility] Sex: M C Admitted: Reason For Study [...] the left vertebral artery. Procedure Carotid Duplex 62766. This is a Carotid Duplex examination using [...] Date Dictated: 03/03/25 1013 Date Transcribed: 03/06/25730 [employer]: Signed [facility] Work Phone: Carotid Duplex Ultrasoundon 03-03-2025 Carotid Duplex Ultrasound [facility] Cardiovascular Services [facility] [place] [address] Carotid Duplex Ultrasound 03/03/25 1013 MR#: [id number] Acct: [id number] Name: WOLF TURCIOS Jr. Rep #: [id number] : 1960 64 From: Elijah Stevens MD [...] the left vertebral artery. Procedure Carotid Duplex 71102. This is a Carotid Duplex examination using [...] Date Dictated: 03/03/25 1013 Date Transcribed: 03/06/25730 [employer]: Signed Normal [facility] Laboratory - Chemistry and C hemistry - challengeon 02-27-2025 Prostate specific Ag [Mass/Vol] 11.5 ng/mL High 0.00 - 0.99 ng/mL [facility] Comment on above: Per the [...] Interpretation and review of laboratory results Abnormal [facility] Absolute lymphocyte countOrd ered By: Werner Hogan on 02-01-2025 Lymphocytes Auto (Unsp spec) [#/Vol] 1.86 10*3/uL 0.83-4.51 [facility] Absolute neutrophil countOrd ered By: Werner Hogan on 02-01-2025 Neutrophils (Bld) [#/Vol] 6.1 10*3/uL 2.0-7.7 [facility] Activated partial thrombopla stin time (aPTT) in platelet poor plasma by coagulation aOrdered By: Werner Hogan on 02-01-2025 aPTT Coag (PPP) [Time] 28.8 s 24.1-36.2 [facility] Anion gap in Serum or Plasma Ordered By: Werner Hogan on 02-01-2025 Anion gap [Moles/Vol] 9 mmol/L 5-15 [facility] Automated lymphocyte count a s percentage of total leukocytesOrdered By: Werner Hogan on 02-01-2025 Lymphocytes/100 WBC Auto (Unsp spec) 20.2 % - [facility] BUN/creatinine ratioOrdered By: Werner Hogan on 02-01-2025 Urea nitrogen/Creatinine [Mass ratio] 10.6 mg/mg 10- [facility] Basic Metabolic Profile (BMP )on 02-01-2025 BUN/CRE 10.6 RATIO Normal - [facility] Comment on above: Performed By: #### L 500.2500, L300.3900, L100.0100, L300.4310 ####[facility] [address] [place], [address] Calcium [Mass/Vol] 8.8 mg/dL Normal 7.6-11.0 [facility] Comment on above: Performed By: #### L 500.2500, L300.3900, L100.0100, L300.4310 ####[facility] [address] [place], [address] Chloride [Moles/Vol] 102 mmol/L Normal 98-108 [facility] Comment on above: Performed By: #### L 500.2500, L300.3900, L100.0100, L300.4310 ####[facility] [address] [place], [address] CO2 [Moles/Vol] 27.5 mmol/L Normal 21.0-32.0 [facility] Comment on above: Performed By: #### L 500.2500, L300.3900, L100.0100, L300.4310 ####[facility] [address] [place], [address] Creatinine [Mass/Vol] 1.04 mg/dL Normal 0.70-1.20 [facility] Comment on above: Performed By: #### L 500.2500, L300.3900, L100.0100, L300.4310 ####[facility] [address] [place], [address] ECRCL 78.56 ml/min Normal 50-250 [facility] Comment on above: Performed By: #### L 500.2500, L300.3900, L100.0100, L300.4310 ####[facility] [address] [place], [address] GAP 9 Normal 5-15 [facility] Comment on above: Performed By: #### L 500.2500, L300.3900, L100.0100, L300.4310 ####[facility] [address] [place], [address] GFR/1.73 sq M.predicted among non-blacks MDRD (S/P/Bld) [Vol rate/Area] 80 mL/min/{1.73_m2} Normal >60 [facility] Comment on above: Result Comment: mL/m in/1.73m2 CKD-EPI Creatinine Equation (2020) Performed By: #### L 500.2500, L300.3900, L100.0100, L300.4310 ####[facility] [address] [place], [address] Glucose [Mass/Vol] 128 mg/dL High 70-99 [facility] Comment on above: Performed By: #### L 500.2500, L300.3900, L100.0100, L300.4310 ####[facility] [address] [place], [address] Potassium [Moles/Vol] 3.6 mmol/L Normal 3.3-5.1 [facility] Comment on above: Performed By: #### L 500.2500, L300.3900, L100.0100, L300.4310 ####[facility] [address] [place], [address] Sodium [Moles/Vol] 139 mmol/L Normal 133-145 [facility] Comment on above: Performed By: #### L 500.2500, L300.3900, L100.0100, L300.4310 ####[facility] [address] [place], [address] Urea nitrogen [Mass/Vol] 11 mg/dL Normal 4-19 [facility] Comment on above: Performed By: #### L 500.2500, L300.3900, L100.0100, L300.4310 ####[facility] [address] [place], [address] Basophil percentageOrdered B y: Werner Cecy on 02-01-2025 Basophils/100 WBC (Bld) 0.8 % 0-1 [facility] CBC W/Diff, Automatedon 01-07 Absolute Lymph 1.86 X10 3/uL Normal 0.83-4.51 [facility] Comment on above: Performed By: #### L 500.2500, L300.3900, L100.0100, L300.4310 ####[facility] [address] [place], [address] Absolute Neut 6.1 X10 3/uL Normal 2.0-7.7 [facility] Comment on above: Performed By: #### L 500.2500, L300.3900, L100.0100, L300.4310 ####[facility] [address] [place], [address] Basophils/100 WBC (Bld) 0.8 % Normal 0-1 [facility] Comment on above: Performed By: #### L 500.2500, L300.3900, L100.0100, L300.4310 ####[facility] [address] [place], [address] Eosinophils/100 WBC (Bld) 2.8 % Normal 0-5 [facility] Comment on above: Performed By: #### L 500.2500, L300.3900, L100.0100, L300.4310 ####[facility] [address] [place], [address] Erythrocyte distribution width (RBC) [Ratio] 12.9 % Normal 11.6-14.6 [facility] Comment on above: Performed By: #### L 500.2500, L300.3900, L100.0100, L300.4310 ####[facility] [address] [place], [address] Hematocrit (Bld) [Volume fraction] 44.0 % Normal 40-54 [facility] Comment on above: Performed By: #### L 500.2500, L300.3900, L100.0100, L300.4310 ####[facility] [address] [place], [address] Hemoglobin (Bld) [Mass/Vol] 15.0 g/dL Normal 13.0-16.5 [facility] Comment on above: Performed By: #### L 500.2500, L300.3900, L100.0100, L300.4310 ####[facility] [address] [place], [address] IG% 0.300 Normal 0.0-0.9 [facility] Comment on above: Result Comment: IG% - Immature Granulocytes (promyelocytes, myelocytes and metamyelocytes) > 1% indicates that a LEFT SHIFT is Present. Performed By: #### L 500.2500, L300.3900, L100.0100, L300.4310 ####[facility] [address] [place], [address] Lymphocytes/100 WBC (Bld) 20.2 % Normal 19-41 [facility] Comment on above: Performed By: #### L 500.2500, L300.3900, L100.0100, L300.4310 ####[facility] [address] [place], [address] MCH (RBC) [Entitic mass] 31.1 pg Normal 27.0-32.0 [facility] Comment on above: Performed By: #### L 500.2500, L300.3900, L100.0100, L300.4310 ####[facility] [address] [place], [address] MCHC (RBC) [Mass/Vol] 34.1 g/dL Normal 32-36 [facility] Comment on above: Performed By: #### L 500.2500, L300.3900, L100.0100, L300.4310 ####[facility] [address] [place], [address] MCV (RBC) [Entitic vol] 91.3 fL Normal 80-94 [facility] Comment on above: Performed By: #### L 500.2500, L300.3900, L100.0100, L300.4310 ####[facility] [address] [place], [address] Monocytes/100 WBC (Bld) 10.1 % High 0-10 [facility] Comment on above: Performed By: #### L 500.2500, L300.3900, L100.0100, L300.4310 ####[facility] [address] [place], [address] Neutrophils/100 WBC (Bld) 65.8 % Normal 47-70 [facility] Comment on above: Performed By: #### L 500.2500, L300.3900, L100.0100, L300.4310 ####[facility] [address] [place], [address] Nucleated RBC (Bld) [#/Vol] 0 10*3/uL Normal 0-5 [facility] Comment on above: Performed By: #### L 500.2500, L300.3900, L100.0100, L300.4310 ####[facility] [address] [place], [address] Platelet mean volume (Bld) [Entitic vol] 9.6 fL Normal 6.2-12.0 [facility] Comment on above: Performed By: #### L 500.2500, L300.3900, L100.0100, L300.4310 ####[facility] [address] [place], [address] Platelets (Bld) [#/Vol] 241 10*3/uL Normal 150-450 [facility] Comment on above: Performed By: #### L 500.2500, L300.3900, L100.0100, L300.4310 ####[facility] [address] [place], [address] RBC (Bld) [#/Vol] 4.82 10*6/uL Normal 4.6-6.2 [facility] Comment on above: Performed By: #### L 500.2500, L300.3900, L100.0100, L300.4310 ####[facility] [address] [place], [address] RDW SD 42.8 fl Normal 35.1-43.9 [facility] Comment on above: Performed By: #### L 500.2500, L300.3900, L100.0100, L300.4310 ####[facility] [address] [place], [address] WBC (Bld) [#/Vol] 9.2 10*3/uL Normal 4.4-11.0 [facility] Comment on above: Performed By: #### L 500.2500, L300.3900, L100.0100, L300.4310 ####[facility] [address] [place], [address] Carbon dioxide, total [Moles /volume] in Central venous bloodOrdered By: Werner Hogan on 02-01-2025 CO2 [Moles/Vol] 27.5 mmol/L 21.0-32.0 [facility] Chloride assayOrdered By: Jeremy Hogan on 02-01-2025 Chloride [Moles/Vol] 102 mmol/L 98-108 [facility] Emergency Department Summary on 02-01-2025 Emergency Department Summary [facility] Medical Records Department [address] [place] [address] Emergency Department Summary 02/01/25 MR#: [id number] Acct: [id number] Name: WOLF TURCIOS Jr. Rep #: [id number] : 1960 64 From: Werner Patel PCP: Dr. Iker Blackwell MD Status:DEP ER Location: ED HPI History of Present Illness Chief Complaint: Complaint Informant: patient Narrative Narrative: Brought in by EMS from home. Status post prostate biopsy today at [facility] in [place] followed by Dr. Latisha Jha. History of [...] 1 - 2 puff inhalation Q4H PRN ID N 01/02/24 Unknown Rx aerosol inhaler (Ventolin [...] 07/19/23 Unknown Rx mg-600 mg tablet extended [id number] hr (Mucus DM) nystatin 100,000 unit/mL oral [...] frequency Musculoskeletal (more content not included)... Normal [facility] Eosinophil percentageOrdered By: Werner Hogan on 02-01-2025 Eosinophils/100 WBC (Bld) 2.8 % 0-5 [facility] Erythrocyte distribution wid th ratioOrdered By: Werner Hogan on 02-01-2025 Erythrocyte distribution width (RBC) [Ratio] 12.9 % 11.6-14.6 [facility] Erythrocyte distribution wid th standard deviationOrdered By: Werner Hogan on 02-01-2025 Erythrocyte distribution width (RBC) [Ratio] 42.8 fl 35.1-43.9 [facility] Glomerular filtration rate ( GFR) estimation/1.73 sq m using serum, plasma, or whole bOrdered By: Werner Hogan on 02-01-2025 GFR/1.73 sq M.predicted among non-blacks MDRD (S/P/Bld) [Vol rate/Area] 80 mL/min/{1.73_m2} >60 [facility] Comment on above: mL/min/1.73m2 CKD-EP I Creatinine Equation (2020) Hematocrit Auto (Bld) [Volum e fraction]Ordered By: Werner Hogan on 02-01-2025 Hematocrit (Bld) [Volume fraction] 44.0 % 40-54 [facility] Hemoglobin measurementOrdere d By: Werner Hogan on 02-01-2025 Hemoglobin (Bld) [Mass/Vol] 15.0 g/dL 13.0-16.5 [facility] Immature granulocytes/100 WB C Auto (Bld)Ordered By: Werner Hogan on 02-01-2025 Immature granulocytes/100 WBC (Bld) 0.300 % 0.0-0.9 [facility] Comment on above: IG% - Immature Granu locytes (promyelocytes, myelocytes and metamyelocytes) > 1% indicates that a LEFT SHIFT is Present. International normalized rat io (INR) calculationOrdered By: Werner Hogan on 02-01-2025 INR Coag (Bld) [Relative time] 1.0 {INR} [facility] MCV (mean corpuscular volume ) determinationOrdered By: Werner Hogan on 02-01-2025 MCV (RBC) [Entitic vol] 91.3 fL 80-94 [facility] Mean corpuscular hemoglobin (MCH) determinationOrdered By: Werner Hogan 02-01-2025 MCH (RBC) [Entitic mass] 31.1 pg 27.0-32.0 [facility] Mean corpuscular hemoglobin concentration (MCHC) determinationOrdered By: Werner Le on 02-01-2025 MCHC (RBC) [Mass/Vol] 34.1 g/dL 32-36 [facility] Mean platelet volume determi nationOrdered By: Werner Hogan on 02-01-2025 Platelet mean volume (Bld) [Entitic vol] 9.6 fL 6.2-12.0 [facility] Monocyte percentageOrdered B y: Werner Le on 02-01-2025 Monocytes/100 WBC (Bld) 10.1 % High 0-10 [facility] Neutrophil percentageOrdered By: Werner Hogan on 02-01-2025 Neutrophils/100 WBC (Bld) 65.8 % 47-70 [facility] Nucleated red blood cell per centageOrdered By: Werner Hogan on 02-01-2025 Nucleated RBC/100 WBC (Bld) [Ratio] 0 % 0-5 [facility] Partial Thromboplast Timeon 02-01-2025 aPTT Coag (Bld) [Time] 28.8 s Normal 24.1-36.2 [facility] Comment on above: Performed By: #### L 500.2500, L300.3900, L100.0100, L300.4310 ####[facility] [address] [facility] [place], [place], [id number] Platelet countOrdered By: Jeremy Hogan on 02-01-2025 Platelets (Bld) [#/Vol] 241 10*3/uL 150-450 [facility] Potassium measurement (mass/ volume)Ordered By: Werner Hogan on 02-01-2025 Potassium (Unsp spec) [Mass/Vol] 3.6 mmol/L 3.3-5.1 [facility] Prothrombin Time w/INRon INR Coag (PPP) [Relative time] 1.0 {INR} Normal [facility] Comment on above: Performed By: #### L 500.2500, L300.3900, L100.0100, L300.4310 ####[facility] [address] [place], [address] PT Coag (PPP) [Time] 13.8 s Normal 11.7-14.9 [facility] Comment on above: Performed By: #### L 500.2500, L300.3900, L100.0100, L300.4310 ####[facility] [address] [place], [address] Prothrombin timeOrdered By: Werner Hogan on 02-01-2025 PT Coag (PPP) [Time] 13.8 s 11.7-14.9 [facility] RBC Auto (Bld) [#/Vol]Ordere d By: Werner Hogan on 02-01-2025 RBC (Bld) [#/Vol] 4.82 10*6/uL 4.6-6.2 [facility] Serum creatinine measurement (mass/volume)Ordered By: Werner Hogan on 02-01-2025 Creatinine [Mass/Vol] 1.04 mg/dL 0.70-1.20 [facility] Serum glucose measurement (m ass/volume)Ordered By: Werner Hogan on 02-01-2025 Glucose [Mass/Vol] 128 mg/dL High 70-99 [facility] Serum or plasma calcium margie urement (mass/volume)Ordered By: Werner Hogan on 02-01-2025 Calcium [Mass/Vol] 8.8 mg/dL 7.6-11.0 [facility] Serum or plasma urea nitroge n measurement (mass/volume)Ordered By: Werner Hogan on 02-01-2025 Urea nitrogen [Mass/Vol] 11 mg/dL 4-19 [facility] Sodium levelOrdered By: Werner Hogan on 02-01-2025 Sodium [Moles/Vol] 139 mmol/L 133-145 [facility] TISSUE EXAMon 02-01-2025 TISSUE EXAM Prostate Biopsy 14-1 6 sites Surgical Pathology Report Case: [id number] Authorizing Provider: Elijah Sanchez, Collected: 02/01/2025 11:33 AM Ordering Location: [facility] Received: 02/01/2025 08:42 PM Urology Pathologist: Tameka Balderrama MD Specimen: Prostate, Needle Biopsy, Please Specify, ERICH #1 Prostate, needle core biopsy: Prostatic adenocarcinoma, [place]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 45% [place] pattern 4. Cribriform growth pattern identified. at 0856 EDT Elevated PSA. Received in formalin labeled Karolina Wolf Vazquez and designated ERICH #1 are six cores, ranging from 0.8 to 1.9 cm. Cassette Summary: A1-A3-two cores each All M/3 VS/XJS/gld Gross examination performed at: [facility] - [address] [place] [address] Microscopic examination is performed. Normal [facility] Comment on above: Performed By: #### 4 7015 #### [facility] [address] [place] [address] Kvng William M.D. [id number] [place] Guidance for percutaneous biopsy of Prostateon 02-01-2025 Findings: SCOTT demonstrates cT1c mobile gland. US with normal margins. SV normal. Bladder neck normal. No median lobe. Vol 29 cm3 Good4U [facility] Radiology Study observation (narrative) [facility] US PROSTATE BIOPSYon 025 US [...] ThuFeb 01, 2025 11:49:39 AM EDT Normal [facility] Comment on above: Order Comment: This back office order was created through the Ultrasound Visit Navigator section. White blood cell (WBC) count Ordered By: Werner Hogan on 02-01-2025 WBC (Bld) [#/Vol] 9.2 10*3/uL 4.4-11.0 [facility] MR PROSTATE WITH AND WITHOUT CONTRASTon 01-02-2025 MR PROSTATE WITH AND WITHOUT CONTRAST EXAMINATION: MRI OF THE PROSTATE WITH AND WITHOUT CONTRAST 01/09/2022 TECHNIQUE: Multiplanar multisequence MRI of the prostate was performed without and with the administration of 15 mL Dotarem intravenous contrast. Multiparametric imaging with dynamic contrast enhanced imaging and diffusion weighted imaging was performed. [employer] was utilized in analysis of images. COMPARISON: [...] on ThuJan 05, 2025 11:39:44 AM EDT [facility] Comment on above: Order Comment: Injur y/Trauma or Illness?:Illness/Other How long have you had these symptoms (acute/chronic)?:Unknown Reason for exam?:Elevated PSA Type of Exam?:Initial Additional signs and symptoms?:Elevated PSA Echocardiogram study reportO rdered By: Chhaya Lam on 11-26-2024 Study report [facility] [address] [place] [address] Echo Complete 11/25/24 1414 MR#: [id number] Acct: [id number] Name: WOLF TURCIOS Jr. Rep #:[id number] : 1960 64 From: Chhaya hernandez MD Attending Dr: Dr. Iker Blackwell MD S tatus: REG CLI Ordering Dr: Iker Blackwell MD Date: Location[place] [facility] Sex: M C Admitted: Reason For Study [...] Dictated: 11/25/24 141 Date Transcribed: 11/26/24 1640 [employer]: Signed [facility] Work Phone: Echo Completeon 11-25-2024 Echo Complete [facility] [address] [place] [address] Echo Complete 11/25/24 141 MR#: [id number] Acct: [id number] Name: WOLF TURCIOS Rep #: [id number] : 1960 64 From: Chhaya Lam MD Attending Dr: Dr. Iker Blackwell MD Status: REG C Ordering Dr: Iker Blackwell MD Date: 11/25/24 Location: [facility] Sex: M C Admitted: Reason For Study [...] Dictated: 11/25/24 1414 Date Transcribed: 11/26/24 1640 [employer]: Signed Normal [facility] PSA Total+%Freeon 11-24-2024 PSA, FREE 1.02 ng/mL Normal N/A [facility] Comment on above: Result Comment: Roch e ECLIA methodology. Performed By: #### L 3110.0500 #### [facility] Laboratory [address] [place], [address] PSA, FREE % 11.6 Normal . [facility] Comment on above: Result Comment: The [...] any other population of men. Performed at: [facility] [address] [place] [address] [id number] [employer] Model: Stewart Garzon PhD, Phone: [phone] Performed By: #### L 3110.0500 #### [facility] [address] [place], [address] PSA, TOTAL ULTR 8.800 ng/mL Abnormal 0.000-4.000 [facility] Comment on above: Result Comment: Roch e ECLIA methodology. According to the [place] [employer], Serum PSA should decrease and [...] disease. Performed By: #### L 3110.0500 #### [facility] [address] [place], [address] Serum or plasma free prostat e specific antigen (PSA)/total PSA mass ratioon 11-23-2024 Free PSA/Total PSA [Mass fraction] 11.6 % . [facility] Comment on above: The table below [...] for any other population of men.Performed at: [facility] [address] [id number] Director: Stewart Garzon PhD, Phone: [phone] Measure post void residualon 10-28-2024 Measure Post Void Residual 125ml [facility] POC Urinalysis Dipstick, Aut oon 10-28-2024 Bilirubin Ql (U) Negative Negative [facility] Glucose Ql (U) Negative Normal, Negative mg/dL [facility] Hemoglobin Ql (U) Negative Negative [facility] Ketones Ql (U) Negative Negative mg/dL [facility] Leukocyte esterase Test strip Ql (U) Negative Negative [facility] Nitrite Ql (U) Negative Negative [facility] pH (U) 5.5 [pH] 5.0 - 7.0 [facility] Protein Ql (U) Negative Negative mg/dL [facility] Specific gravity (U) [Rel density] 1.01 1.005 - 1.025 [facility] Urobilinogen Qn (U) 0.2 mg/dL <2.0, 0. 2, Normal, Negative, 1.0, 2.0, <1.0 [facility] Testicular with Arterial Demetrio won 09-21-2024 Testicular with Arterial Flow [facility] Imaging Services [address] [place], [place] [address] Testicular with Arterial Flow MR#: [id number] Acct: [id number] Name: WOLF TURCIOS Jr. Rep #: [id number] : 1960 M 64 From: Teresa Mc MD PCP: Dr. Iker Blackwell MD Status: REG CLI Study: Testicular with Arterial Flow Date of Exam: Exam# [id number] Ordering Dr: Iker Blackwell MD PROCEDURE: TESTICULAR [...] bilateral arterial and venous flow seen. Bilateral krmy-ki-svpsngsq appearing hydroceles are noted measuring approximately 4.3 x 5.3 x 2 cm on the right and 5.3 x 3.3 x 2.7 cm on the left. US/Testicular with Arterial Flow IMPRESSION: The testicles appear symmetric and isoechoic with bilateral arterial and venous flow seen. Bilateral smah-re-hojpwygf appearing hydroceles are noted measuring approximately 4.3 x 5.3 x 2 cm on the right and 5.3 x 3.3 x 2.7 cm on the left. Reading Location: [facility] CC: Dr. Iker Blackwell MD [employer]: Signed Normal [facility] Emergency Department Summary on 08-18-2024 Emergency Department Summary [facility] Medical Records Department [address] [place] [address] Emergency Department Summary 08/18/24 MR#: [id number] Acct: [id number] Name: WOLF TURCIOS Jr. Rep #: [id number] : 1960 64 From: Elijah Simpson DO [...] 1 - 2 puff inhalation Q4H PRN ID N 01/02/24 Unknown Rx aerosol inhaler (Ventolin [...] 07/19/23 Unknown Rx mg-600 mg tablet extended zetbwmj10 hr (Mucus DM) nystatin 100,000 unit/mL oral [...] Verified 08/18 (more content not included)... Normal [facility] Cardiovascular stress test r eportOrdered By: Eron Enrique on 08-10-2024 Study report [facility] [address] [place] [address] MR#: [id number] Acct: [id number] Name: WOLF TURCIOS Jr. Rep #: [id number] : 1960 64 From: Eron Enrique MD Primary Care: Dr. Iker Blackwell MD Status: REG [facility] Referring Dr: Iker Blackwell MD Sex: [...] of 52%. This note was generated with [employer] software. It may contain incorrectwords, spelling, and punctuation that were not noted in checking the note beforesigning. 08/10/2446 Date _ Eron Enrique MD CC: Dr. Iker Blackwell MD ~ Date Dictated: 08/10/24943 Date Transcribed: 08/10/24943 [employer]: TRUMAN Mata [facility] Work Phone: Stress Reporton 08-10-2024 Stress Report [facility] Cardi[facility] Services [address] [place], [place] [address] MR#: [id number] Acct: [id number] Name: WOLF TURCIOS Jr. Rep #: [id number] : 1960 64 From: Eron Enrique MD [...] of 52%. This note was generated with [employer] software. It may contain incorrect words, spelling, and punctuation that were not noted in checking the note before signing. 08/10/2446 Date Eron Enrique MD CC: Dr. Iker Blackwell MD Date Dictated: 08/10/24943 Date Transcribed: 08/10/24943 [employer]: TRUMAN Signed Normal [facility] Electrocardiogram reportOrde red By: Jihan Daly on 08-03-2024 EKG study [facility] Cardi[facility] Services [address] [place] [address] 12 Lead EKG 08/02/24 1026 MR#: [id number] Acct: [id number] Name: WOLF TURCIOS Jr. Rep #:[id number] : 1960 64 From: Jihan solitario MD [...] undetermined Abnormal ECG Confirmed by Jihan Daly ([id number]), non linear editor YENNY NUNEZ ([id number]) on 56:04:39 AM Referred By: Iker Blackwell Confirmed By: Jihan Daly 08/03/24 0604 Date _ Jihan Daly MD CC: Dr. Iker Blackwell MD ~ Signed [facility] Work Phone: 12 Lead EKGon 08-02-2024 12 Lead EKG [facility] Cardiovascular Services [address] [place] [address] 12 Lead EKG 08/02/24 1026 MR#: [id number] Acct: [id number] Name: WOLF TURCIOS JrFlorence Rep #: [id number] : 1960 64 From: Jihan Daly MD [...] undetermined Abnormal ECG Confirmed by Jihan Daly ([id number]), non linear editor YENNY NUNEZ ([id number]) on 08/03/2024 6:04:39 AM Referred By: Iker Blackwell Confirmed By: Jihan Daly 08/03/24 0604 Date Jihan Daly MD CC: Dr. Iker Blackwell MD Signed Normal [facility] Chest PA and Lateralon 07-21 Chest PA and Lateral [facility] Imaging Services [address] [place] [address] Chest PA and Lateral MR#: [id number] Acct: [id number] Name: WOLF TURCIOS Jr. Rep #: [id number] : 1960 M 64 From: Washington Hogan MD PCP: Dr. Iker Blackwell MD Status: REG CLI Study: Chest PA and Lateral Date of Exam: 07/21/24 Exam# [id number] Ordering Dr: Iker Blackwell MD EXAM: XR [...] Lateral IMPRESSION: Suggestion of COPD. Reading Location: [facility] CC: Dr. Iker Blackwell MD [employer]: Signed Normal [facility] Abdomen/Pelvis W IV Cont ONL Yon 07-05-2024 Abdomen/Pelvis W IV Cont ONLY [facility] Imaging Services [address] [place] [address] Abdomen/Pelvis W IV Cont ONLY MR#: [id number] Acct: [id number] Name: WLOF TURCIOS Jr. Rep #: [id number] : 1960 M 64 From: Lawanda Cui MD PCP: Dr. Iker Blackwell MD Status: REG ER Study: Abdomen/Pelvis W IV Cont ONLY Date of Exam: Exam# [id number] Ordering Dr: Dale Galdamez DO [id number] STUDY: CT ABDOMEN AND PELVIS WITH CONTRAST [...] Dale Galdamez DO; Dr. Iker Blackwell MD [employer]: Signed Normal [facility] Absolute neutrophil countOrd ered By: Dale Galdamez on 07-05-2024 Neutrophils (Bld) [#/Vol] 3.7 10*3/uL 2.0-7.7 [facility] Albumin to globulin ratioOrd ered By: Dale Galdamez on 07-05-2024 Albumin/Globulin [Mass ratio] 1.0 {ratio} 0.9-2.4 [facility] Basophil percentageOrdered B y: Dale Galdamez on 07-05-2024 Basophils/100 WBC (Bld) 1.2 % High 0-1 [facility] Bilirubin Test strip Ql (U)O rdered By: Dale Galdamez on 07-05-2024 Bilirubin Ql (U) Negative Negative [facility] Bilirubin, totalOrdered By: Dale Galdamez on 07-05-2024 Bilirubin [Mass/Vol] 0.50 mg/dL 0.20-1.00 [facility] Comment on above: For patients on eltr ombopag therapy, use of Dimension [place] TBIL is not recommended. Blood urea nitrogen (BUN)/cr eatinine ratioOrdered By: Dale Galdamez on 07-05-2024 Urea nitrogen/Creatinine [Mass ratio] 11.4 mg/mg 10-20 [facility] CBC W/Diff, Automatedon 06-09 Absolute Lymph 1.75 X10 3/uL Normal 0.83-4.51 [facility] Comment on above: Performed By: #### L 501.2450, L100.0100, L500.4050, L503.6005 ####[facility] [address] [place], [address] Absolute Neut 3.7 X10 3/uL Normal 2.0-7.7 [facility] Comment on above: Performed By: #### L 501.2450, L100.0100, L500.4050, L503.6005 ####[facility] [address] [place], [address] Basophils/100 WBC (Bld) 1.2 % High 0-1 [facility] Comment on above: Performed By: #### L 501.2450, L100.0100, L500.4050, L503.6005 ####[facility] [address] [place], [address] Eosinophils/100 WBC (Bld) 5.1 % High 0-5 [facility] Comment on above: Performed By: #### L 501.2450, L100.0100, L500.4050, L503.6005 ####[facility] [address] [place], [address] Erythrocyte distribution width (RBC) [Ratio] 13.2 % Normal 11.6-14.6 [facility] Comment on above: Performed By: #### L 501.2450, L100.0100, L500.4050, L503.6005 ####[facility] [address] [place], [address] Hematocrit (Bld) [Volume fraction] 46.7 % Normal 40-54 [facility] Comment on above: Performed By: #### L 501.2450, L100.0100, L500.4050, L503.6005 ####[facility] [address] [place], [address] Hemoglobin (Bld) [Mass/Vol] 15.8 g/dL Normal 13.0-16.5 [facility] Comment on above: Performed By: #### L 501.2450, L100.0100, L500.4050, L503.6005 ####[facility] [address] [place], [address] IG% 0.300 Normal 0.0-0.9 [facility] Comment on above: Result Comment: IG% - Immature Granulocytes (promyelocytes, myelocytes and metamyelocytes) > 1% indicates that a LEFT SHIFT is Present. Performed By: #### L 501.2450, L100.0100, L500.4050, L503.6005 ####[facility] [address] [place], [address] Lymphocytes/100 WBC (Bld) 26.8 % Normal 19-41 [facility] Comment on above: Performed By: #### L 501.2450, L100.0100, L500.4050, L503.6005 ####[facility] [address] [place], [address] MCH (RBC) [Entitic mass] 31.3 pg Normal 27.0-32.0 [facility] Comment on above: Performed By: #### L 501.2450, L100.0100, L500.4050, L503.6005 ####[facility] [address] [place], [address] MCHC (RBC) [Mass/Vol] 33.8 g/dL Normal 32-36 [facility] Comment on above: Performed By: #### L 501.2450, L100.0100, L500.4050, L503.6005 ####[facility] [address] [place], [address] MCV (RBC) [Entitic vol] 92.5 fL Normal 80-94 [facility] Comment on above: Performed By: #### L 501.2450, L100.0100, L500.4050, L503.6005 ####[facility] [address] [place], [address] Monocytes/100 WBC (Bld) 10.3 % High 0-10 [facility] Comment on above: Performed By: #### L 501.2450, L100.0100, L500.4050, L503.6005 ####[facility] [address] [place], [address] Neutrophils/100 WBC (Bld) 56.3 % Normal 47-70 [facility] Comment on above: Performed By: #### L 501.2450, L100.0100, L500.4050, L503.6005 ####[facility] [address] [place], [address] Nucleated RBC (Bld) [#/Vol] 0 10*3/uL Normal 0-5 [facility] Comment on above: Performed By: #### L 501.2450, L100.0100, L500.4050, L503.6005 ####[facility] [address] [place], [address] Platelet mean volume (Bld) [Entitic vol] 9.7 fL Normal 6.2-12.0 [facility] Comment on above: Performed By: #### L 501.2450, L100.0100, L500.4050, L503.6005 ####[facility] [address] [place], [address] Platelets (Bld) [#/Vol] 266 10*3/uL Normal 150-450 [facility] Comment on above: Performed By: #### L 501.2450, L100.0100, L500.4050, L503.6005 ####[facility] [address] [place], [address] RBC (Bld) [#/Vol] 5.05 10*6/uL Normal 4.6-6.2 [facility] Comment on above: Performed By: #### L 501.2450, L100.0100, L500.4050, L503.6005 ####[facility] [address] [place], [address] RDW SD 44.9 fl High 35.1-43.9 [facility] Comment on above: Performed By: #### L 501.2450, L100.0100, L500.4050, L503.6005 ####[facility] [address] [place], [address] WBC (Bld) [#/Vol] 6.5 10*3/uL Normal 4.4-11.0 [facility] Comment on above: Performed By: #### L 501.2450, L100.0100, L500.4050, L503.6005 ####[facility] [address] [place], [address] Carbon dioxide measurementOr dered By: Dale aGldamez on 07-05-2024 CO2 [Moles/Vol] 30.0 mmol/L 21.0-32.0 [facility] Chloride measurementOrdered By: Dale Galdamez on 07-05-2024 Chloride [Moles/Vol] 107 mmol/L 98-107 [facility] Comprehensive Metabolic Prof ilon 07-05-2024 Albumin [Mass/Vol] 3.5 g/dL Normal 3.2-5.0 [facility] Comment on above: Performed By: #### L 501.2450, L100.0100, L500.4050, L503.6005 ####[facility] [address] [place], [address] Albumin/Globulin [Mass ratio] 1.0 {ratio} Normal 0.9-2.4 [facility] Comment on above: Performed By: #### L 501.2450, L100.0100, L500.4050, L503.6005 ####[facility] [address] [place], [address] ALK P 91 U/L Normal 45-117 [facility] Comment on above: Performed By: #### L 501.2450, L100.0100, L500.4050, L503.6005 ####[facility] [address] [place], [address] ALT [Catalytic activity/Vol] 27 U/L Normal 16-61 [facility] Comment on above: Performed By: #### L 501.2450, L100.0100, L500.4050, L503.6005 ####[facility] [address] [place], [address] AST [Catalytic activity/Vol] 24 U/L Normal 15-37 [facility] Comment on above: Result Comment: Slig ht Hemolysis, Result may be falsely increased. Performed By: #### L 501.2450, L100.0100, L500.4050, L503.6005 ####[facility] [address] [place], [address] Bilirubin [Mass/Vol] 0.50 mg/dL Normal 0.20-1.00 [facility] Comment on above: Result Comment: For patients on eltrombopag therapy, use of Dimension [place] TBIL is not recommended. Performed By: #### L 501.2450, L100.0100, L500.4050, L503.6005 ####[facility] [address] [place], [address] BUN/CRE 11.4 RATIO Normal 10-20 [facility] Comment on above: Performed By: #### L 501.2450, L100.0100, L500.4050, L503.6005 ####[facility] [address] [place], [address] CA,Total 9.1 mg/dL Normal 8.5-10.1 [facility] Comment on above: Performed By: #### L 501.2450, L100.0100, L500.4050, L503.6005 ####[facility] [address] [place], [address] Chloride [Moles/Vol] 107 mmol/L Normal 98-107 [facility] Comment on above: Performed By: #### L 501.2450, L100.0100, L500.4050, L503.6005 ####[facility] [address] [place], [address] CO2 [Moles/Vol] 30.0 mmol/L Normal 21.0-32.0 [facility] Comment on above: Performed By: #### L 501.2450, L100.0100, L500.4050, L503.6005 ####[facility] [address] [place], [address] Creatinine [Mass/Vol] 0.96 mg/dL Normal 0.70-1.30 [facility] Comment on above: Result Comment: The validity of the calculated GFR GFRAA in patients over 70 years has not been determined. Clinical correlation is essential. Performed By: #### L 501.2450, L100.0100, L500.4050, L503.6005 ####[facility] [address] [place], [address] ECRCL 83.02 ml/min Normal [facility] Comment on above: Performed By: #### L 501.2450, L100.0100, L500.4050, L503.6005 ####[facility] [address] [place], [address] EST GFR - AA 101 mL/min Normal >60 [facility] Comment on above: Result Comment: Afri can [place] GFR Calc Performed By: #### L 501.2450, L100.0100, L500.4050, L503.6005 ####[facility] [address] [place], [address] GAP 4 Low 5-15 [facility] Comment on above: Performed By: #### L 501.2450, L100.0100, L500.4050, L503.6005 ####[facility] [address] [place], [address] GFR/1.73 sq M.predicted among non-blacks MDRD (S/P/Bld) [Vol rate/Area] 84 mL/min/{1.73_m2} Normal >60 [facility] Comment on above: Result Comment: Non- GFR Calc Performed By: #### L 501.2450, L100.0100, L500.4050, L503.6005 ####[facility] [address] [place], [address] Globulin (S) [Mass/Vol] 3.6 g/dL Normal 2.2-4.2 [facility] Comment on above: Performed By: #### L 501.2450, L100.0100, L500.4050, L503.6005 ####[facility] [address] [place], [address] Glucose [Mass/Vol] 105 mg/dL Normal 74-106 [facility] Comment on above: Result Comment: Fast ing Glucose result from 100 to 125 mg/dL suggests IMPAIRED HOMEOSTASIS per A.D.A. criteria. Performed By: #### L 501.2450, L100.0100, L500.4050, L503.6005 ####[facility] [address] [place], [address] Potassium [Moles/Vol] 4.1 mmol/L Normal 3.5-5.1 [facility] Comment on above: Result Comment: Slig ht Hemolysis, Result may be falsely increased. Performed By: #### L 501.2450, L100.0100, L500.4050, L503.6005 ####[facility] [address] [place], [address] Sodium [Moles/Vol] 142 mmol/L Normal 136-145 [facility] Comment on above: Performed By: #### L 501.2450, L100.0100, L500.4050, L503.6005 ####[facility] [address] [place], [address] T PROT 7.1 g/dL Normal 6.4-8.2 [facility] Comment on above: Performed By: #### L 501.2450, L100.0100, L500.4050, L503.6005 ####[facility] [address] [place], [address] Urea nitrogen [Mass/Vol] 11 mg/dL Normal 7-18 [facility] Comment on above: Performed By: #### L 501.2450, L100.0100, L500.4050, L503.6005 ####[facility] [address] [place], [address] Emergency Department Summary on 07-05-2024 Emergency Department Summary [facility] Medical Records Department [address] [place] [address] Emergency Department Summary 07/05/24 MR#: [id number] Acct: [id number] Name: WOLF TURCIOS Rep #: [id number] : 1960 64 From: Dale Galdamez DO [...] intact Psych: Cooperative, appropriate mood and affect [facility] Medical History History of substance use [...] 05/18/24 Unknown Rx mg-600 mg tablet extended unibwio78 hr (Mucus DM) nystatin 100,000 unit/mL oral [...] 07:20 0 (more content not included)... Normal [facility] Eosinophil percentageOrdered By: Dale Galdamez on 07-05-2024 Eosinophils/100 WBC (Bld) 5.1 % High 0-5 [facility] Epithelial cells.squamous LM Ql (Urine sed)Ordered By: Dale Galdamez on 07-05-2024 Epithelial cells.squamous LM.HPF (Urine sed) [#/Area] 0 /[HPF] 0-5 [facility] Erythrocyte distribution wid th ratioOrdered By: Dale Galdamez on 07-05-2024 Erythrocyte distribution width (RBC) [Ratio] 13.2 % 11.6-14.6 [facility] Erythrocyte distribution wid th standard deviationOrdered By: Dale Hoffman on 07-05-2024 Erythrocyte distribution width (RBC) [Entitic vol] 44.9 fL High 35.1-43.9 [facility] Estimated glomerular filtrat ion rate (GFR) AmericanOrdered By: Dale Galdamez on 07-05-2024 Estimated GFR (MDRD) Amer 101 mL/min >60 [facility] Comment on above: GFR Calc Estimation of creatinine kehinde aranceOrdered By: Dale Galdamez on 07-05-2024 Estimated Creatinine Clearance Calc 83.02 ml/min [facility] Glomerular filtration rate ( GFR) estimationOrdered By: Dale Galdamez on 07-05-2024 Estimated GFR (MDRD) Non-Af Amer 84 mL/min >60 [facility] Comment on above: Non- GFR Calc Glucose Ql (U)Ordered By: Truman Galdamez on 07-05-2024 Urine Glucose (UA) Normal mg/dl Normal [facility] Glucose measurementOrdered B y: Dale Galdamez on 07-05-2024 Glucose [Mass/Vol] 105 mg/dL 74-106 [facility] Comment on above: Fasting Glucose resu lt from 100 to 125 mg/dL suggests IMPAIRED HOMEOSTASIS per A.D.A. criteria. Hematocrit Auto (Bld) [Volum e fraction]Ordered By: Dale Galdamez on 07-05-2024 Hematocrit (Bld) [Volume fraction] 46.7 % 40-54 [facility] Hemoglobin measurementOrdere d By: Dale Galdamez on 07-05-2024 Hemoglobin (Bld) [Mass/Vol] 15.8 g/dL 13.0-16.5 [facility] Immature granulocytes/100 WB C Auto (Bld)Ordered By: Dalelinwood Galdamez on 07-05-2024 Immature granulocytes/100 WBC (Bld) 0.300 % 0.0-0.9 [facility] Comment on above: IG% - Immature Granu locytes (promyelocytes, myelocytes and metamyelocytes) > 1% indicates that a LEFT SHIFT is Present. Ketones Test strip Ql (U)Ord ered By: Dale Galdamez on 07-05-2024 Ketones Ql (U) Negative Negative [facility] Laboratory - Chemistry and C hemistry - challengeOrdered By: Dale Galdamez on 07-05-2024 AST [Catalytic activity/Vol] 24 U/L 15-37 [facility] Comment on above: Slight Hemolysis, Re sult may be falsely increased. Lactic Acidon 07-05-2024 Lactate [Moles/Vol] 1.4 mmol/L Normal 0.4-1.9 [facility] Comment on above: Order Comment: Y Performed By: #### L 501.2450, L100.0100, L500.4050, L503.6005 ####[facility] [id number] [place], [place], [id number] Lactic acid measurementOrder ed By: Dale Galdamez on 07-05-2024 Lactate [Moles/Vol] 1.4 mmol/L 0.4-2.0 [facility] Lipaseon 07-05-2024 Lipase [Catalytic activity/Vol] 19 U/L Normal 13-75 [facility] Comment on above: Result Comment: Elva acosta note: LIPASE revised reference range effective 22. New Lipase methodology. Expected to produce lower values than the previous assay method. NEW Reference Range: 13 - 75 U/L Performed By: #### L 501.2450, L100.0100, L500.4050, L503.6005 ####[facility] [address] [place], [address] Lipase measurementOrdered By : Dale Galdamez on 07-05-2024 Lipase [Catalytic activity/Vol] 19 U/L 13-75 [facility] Comment on above: Please note:LIPASE r evised reference range effective 22. New Lipase methodology. Expected to produce lower values than the previous assay method. NEW Reference Range: 13 - 75 U/L Lymphocytes Auto (Unsp spec) [#/Vol]Ordered By: Dale Galdamez on 07-05-2024 Lymphocytes (Bld) [#/Vol] 1.75 10*3/uL 0.83-4.51 [facility] Lymphocytes/100 WBC Auto (Un sp spec)Ordered By: Dale Galdamez on 07-05-2024 Lymphocytes/100 WBC (Bld) 26.8 % 19-41 [facility] MCV (mean corpuscular volume ) determinationOrdered By: Dale Galdamez on 07-05-2024 MCV (RBC) [Entitic vol] 92.5 fL 80-94 [facility] Mean corpuscular hemoglobin (MCH) determinationOrdered By: [place] Denice on 07-05-2024 MCH (RBC) [Entitic mass] 31.3 pg 27.0-32.0 [facility] Mean corpuscular hemoglobin concentration (MCHC) determinationOrdered By: [place]elinwood Galdamez on 07-05-2024 MCHC (RBC) [Mass/Vol] 33.8 g/dL 32-36 [facility] Mean platelet volume determi nationOrdered By: Dale Galdamez on 07-05-2024 Platelet mean volume (Bld) [Entitic vol] 9.7 fL 6.2-12.0 [facility] Microscopic analysis of urin e for red blood cells (RBC)Ordered By: Dale Galdamez on 07-05-2024 Urine RBC 10-25 SEEN /hpf 0-5 [facility] Monocyte percentageOrdered B y: Dale Galdamez on 07-05-2024 Monocytes/100 WBC (Bld) 10.3 % High 0-10 [facility] Mucus LM Ql (Urine sed)Order ed By: Dale Galdamez on 07-05-2024 Mucus Ql (Urine sed) 0 SEEN /hpf [facility] Neutrophil percentageOrdered By: Dale Galdamez on 07-05-2024 Neutrophils/100 WBC (Bld) 56.3 % 47-70 [facility] Nitrite Test strip Ql (U)Ord ered By: Dale Galdamez on 07-05-2024 Nitrite Ql (U) Negative Negative [facility] Nucleated red blood cell per centageOrdered By: Dale Galdamez on 07-05-2024 Nucleated RBC/100 WBC (Bld) [Ratio] 0 % 0-5 [facility] Platelet countOrdered By: Truman Galdamez on 07-05-2024 Platelets (Bld) [#/Vol] 266 10*3/uL 150-450 [facility] Potassium measurementOrdered By: Dale Galdamez on 07-05-2024 Potassium [Moles/Vol] 4.1 mmol/L 3.5-5.1 [facility] Comment on above: Slight Hemolysis, Re sult may be falsely increased. Protein Test strip Ql (U)Ord ered By: Dale Galdamez on 07-05-2024 Protein Ql (U) 30 mg/dl High Negative [facility] RBC Auto (Bld) [#/Vol]Ordere d By: Dale Galdamez on 07-05-2024 RBC (Bld) [#/Vol] 5.05 10*6/uL 4.6-6.2 [facility] Serum anion gap measurementO rdered By: Dale Galdamez on 07-05-2024 Anion gap [Moles/Vol] 4 mmol/L Low 5-15 [facility] Serum globulin measurementOr dered By: Dale Galdamez on 07-05-2024 Globulin (S) [Mass/Vol] 3.6 g/dL 2.2-4.2 [facility] Serum or plasma alanine augustine otransferase (ALT) measurementOrdered By: Dale Galdamez on 07-05-2024 ALT [Catalytic activity/Vol] 27 U/L 16-61 [facility] Serum or plasma albumin margie urement (mass/volume)Ordered By: Dale Hoffman on 07-05-2024 Albumin [Mass/Vol] 3.5 g/dL 3.2-5.0 [facility] Serum or plasma alkaline jacobo sphatase measurementOrdered By: Dale Galdamez on 07-05-2024 ALP [Catalytic activity/Vol] 91 U/L 45-117 [facility] Serum or plasma calcium margie urement (mass/volume)Ordered By: Dale Hoffman on 07-05-2024 Calcium [Mass/Vol] 9.1 mg/dL 8.5-10.1 [facility] Serum or plasma creatinine m easurement (mass/volume)Ordered By: Dale Hoffman on 07-05-2024 Creatinine [Mass/Vol] 0.96 mg/dL 0.70-1.30 [facility] Comment on above: The validity of the calculated GFR & GFRAA in patients over 70 years has not been determined. Clinical correlation is essential. Serum or plasma urea nitroge n measurement (mass/volume)Ordered By: Dale Galdamez on 07-05-2024 Urea nitrogen [Mass/Vol] 11 mg/dL 7-18 [facility] Sodium levelOrdered By: Augustin Galdamez on 07-05-2024 Sodium [Moles/Vol] 142 mmol/L 136-145 [facility] Total proteinOrdered By: Dejuan Galdamez on 07-05-2024 Protein [Mass/Vol] 7.1 g/dL 6.4-8.2 [facility] Urinalysis, Completeon 07-05 RBC 10-25 SEEN Normal 0-5 [facility] Comment on above: Order Comment: CLEAN CATCH Performed By: #### L 400.0001 ####[facility] [address] [place], [address] WBC 0-5 SEEN Normal 0-5 [facility] Comment on above: Order Comment: CLEAN CATCH Performed By: #### L 400.0001 ####[facility] [address] [place], [address] BACTERIA 0 SEEN Normal None Seen [facility] Comment on above: Order Comment: CLEAN CATCH Performed By: #### L 400.0001 ####[facility] [address] [place], [address] EPI,SQUAMOUS 0 SEEN Normal 0-5 [facility] Comment on above: Order Comment: CLEAN CATCH Performed By: #### L 400.0001 ####[facility] [address] [place], [address] Mucus Ql (Urine sed) 0 SEEN Normal [facility] Comment on above: Order Comment: CLEAN CATCH Performed By: #### L 400.0001 ####[facility] [address] [place], [address] Urine blood detectionOrdered By: Dale Galdamez on 07-05-2024 Urine Occult Blood 150 /ul High Negative [facility] Urine clarityOrdered By: Dejuan Galdamez on 07-05-2024 Clarity (U) Clear Clear [facility] Urine color determinationOrd ered By: Dale Galdamez on 07-05-2024 Color (U) Yellow Yellow [facility] Urine leukocyte esterase det ection by dipstickOrdered By: Dale Galdamez on 07-05-2024 Leukocyte esterase Test strip Ql (U) 25 /ul High Negative [facility] Urine pHOrdered By: Dale Cristobal campoCaro on 07-05-2024 pH (U) 5.0 [pH] 5.0 - 8.0 [facility] Urine sediment bacteria coun t by microscopy (number/high power field)Ordered By: Dale Galdamez on 07-05-2024 Bacteria LM.HPF (Urine sed) [#/Area] 0 /[HPF] None Seen [facility] Urine specific gravity measu rementOrdered By: Dale CristobaljevonDalton on 07-05-2024 Specific gravity (U) [Rel density] 1.015 1.002-1.030 [facility] Urobilinogen Ql (U)Ordered B y: Dale KljevonDalton on 07-05-2024 Urobilinogen (U) [Mass/Vol] 4 mg/dL High Normal [facility] White blood cell (WBC) count Ordered By: Dale ThuyNoa on 07-05-2024 WBC (Bld) [#/Vol] 6.5 10*3/uL 4.4-11.0 [facility] White blood cell countOrdere d By: Dale Galdamez on 07-05-2024 Urine WBC 0-5 SEEN /hpf 0-5 [facility] Culture, Blood (WB)on 2023 CUB RT.IV Blood cultures x2, from two different sites No growth in 5 days. Normal [facility] Comment on above: Performed By: #### L 503.6620 #### [facility] Laboratory [address] [place], [place], [id number] CUB RT.IV Blood cultures x2, from two different sites No growth in 5 days. Normal [facility] Comment on above: Performed By: #### L 503.6620 #### [facility] [address] [place], [place], [id number] EGD Reporton 06-02-2024 EGD Report [facility] Medical Records Department [address] [place] [address] EGD Report MR#: [id number] Acct: [id number] Name: WOLF TURCIOS Jr. Rep #: [id number] : 1960 64 From: Nabeel Womack MD PCP: Dr. Iker Blackwell MD Status:REG [facility] Patient Name: Wolf Turcios Procedure Date: 06/02/2024 [...] 2 weeks. Procedure Code(s): --- Professional --- 00316, Esophagogastroduodenoscop y, flexible, transoral; with removal of foreign body(s) Diagnosis Code(s): --- Professional --- T18.128A, Food in esophagus causing other injury, initial encounter T18.108A, Unspecified foreign body in esophagus causing other injury, initial encounter CPT copyright 2021 [employer]. All rights reserved. The codes documented in this report are preliminary and upon cook specialty review may be revised to meet current compliance requirements. Nabeel Womack MD 06/02/2024 7:25:56 PM This report has been signed electronically. Number of Addenda: 0 Note Initiated On: 06/02/2024 6:49 PM 06/02/241925 Date Nabeel Womack MD Cosigner Signature: Date (if indicated) CC: Dr. Nabeel Womack MD; Dr. Iker Blackwell MD Date Dictated: 06/02/241848 Date Transcribed: [employer]: LORENA Signed Normal [facility] Emergency Department Summary on 06-02-2024 Emergency Department Summary [facility] Medical Records Department [address] [place] [address] Emergency Department Summary 06/02/24 MR#: [id number] Acct: [id number] Name: WOLF TURCIOS Jr. Rep #: [id number] : 1960 64 From: Tamica MILLER PCP: Dr. Iker Blackwell MD Status:[facility] Location: EN [facility] HPI - GI History of [...] denies chest pain and shortness of breath. 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 Normal [facility] H AND P Exam - Surgicalon H&P Exam - Surgical [facility] Medical Records Department [address] [place] [address] H P Exam - Surgical 06/02/241920 MR#: [id number] Acct: [id number] Name: WOLF TURCIOS Jr. Rep #: [id number] : 1960 64 From: Nabeel Womack MD PCP: Dr. Iker Blackwell MD Status:REG [facility] Location: [place] [address] HPI - General HPI Narrative WOLF TURCIOS, [...] not have his dentures yet. [facility] Medical History History of substance [...] 05/18/24 Unknown Rx mg-600 mg tablet extended [id number] hr (Mucus DM) nystatin 100,000 unit/mL oral [...] Pattern Blood Pressure (more content not included)... [facility] MR/POSTOP.ANE 06-02-2024 MR/POSTOP.[facility] Medical Records Department [address] [place] [address] Anesthesia Postop Eval I 06/02/241947 MR#: [id number] Acct: [id number] Name: WOLF TURCIOS JrFlorence Rep #: [id number] : 1960 64 From: Alexander Titus PCP: Dr. Iker Blackwell MD Status:REG [facility] Y Race: C Location: [place] [address] Anesthesia: Postop Eval I Current Vital Signs [...] Date Alexander Rangelignyaneli Signature: Date CC: Signed [facility] MR/[id number] 06-02-2024 MR/POSTOPAN2 [facility] Medical Records Department [address] [place] [address] Anesthesia Postop Eval II 06/02/241948 MR#: [id number] Acct: [id number] Name: WOLF TURCIOS Jr. Rep #: [id number] : 1960 64 From: Alexander Titus PCP: Dr. Iker Blackwell MD Status:REG [facility] Y Race: C Location: [place] [address] Anesthesia Postop Eval I Sum Postop Eval Completion status Anesthesia document: Postop Eval 1 completed: Yes Anesthesia Postop Eval I Summary Anesthesia Postop Eval I Summary: Anesthesia Postop Eval I: Assessment Summary Airway patent Yes 06/02/24 19:48 [employer]AGE [employer].JCOTE Spontaneous unlabored Yes 06/02/24 19:48 [employer]INAGE [employer]INE[employer].JCOTE respirations Mental status nausea No 06/02/24 19:48 [employer]INAGE [employer]INE[employer].JCOTE Vomiting No 06/02/24 19:48 [employer]RAINAGE [employer]INE[employer].JCOTE Anesthesia Postop Eval I: Fluid Summary Crystalloid volume administer 250 06/02/24 19:48 DRAINAGE ENGINEER.JCOTE (ml) Colloids volume administered ( ml) Blood Product volume administered (ml) Total IV fluid infused 250 06/02/24 19:48 DRAINAGE ENGINEER.JCOTE Anesthesia Postop Eval I: Summary Notes Anesthesia Complication No 06/02/24 19:48 DRAINAGE ENGINEER.JCOTE Anesthesia Complication Comment: Post-operative progress note Anesthesia: Postop Eval II Evaluation Mental status: Awake Pain Level: 0 nausea: No Vomiting: No 06/02/241948 Date Alexander Motta Signature: Date CC: Signed [facility] Urine Cultureon 06-02-2024 [facility] SENT LABEL TO U TO COLLECT Below infection level. Mixed Gram Pos Gram Neg Org [place] Count <1000 MIXC Mixed contaminants. Submit a new specimen if indicated. [facility] Comment on above: Performed By: #### M 100.2200, L400.0001 ####[facility] [address] [place], [address] Abdomen/Pelvis W IV Cont ONL Yon 05-31-2024 Abdomen/Pelvis W IV Cont ONLY [facility] Imaging Services [address] [place] [address] Abdomen/Pelvis W IV Cont ONLY MR#: [id number] Acct: [id number] Name: WOLF TURCIOS Jr. Rep #: [id number] : 1960 M 64 From: Quoc Carrillo MD PCP: Dr. Iker Blackwell MD Status: REG ER Study: Abdomen/Pelvis W IV Cont ONLY Date of Exam: Exam# [id number] Ordering Dr: Alcides Hanks DO [id number] EXAM: CT ABDOMEN AND PELVIS WITH INTRAVENOUS [...] Iker Blackwell MD; Dr. Alcides Hanks DO [employer]: Signed Normal [facility] Amorphous sediment detection in urine sediment by light microscopyOrdered By: Alcides Hanks on 05-31-2024 Amorphous sediment LM Ql (Urine sed) 2+ [facility] BNP,B-Type NATRIURETIC PEPTI Enrike 05-31-2024 Natriuretic peptide B (Bld) [Mass/Vol] 11.7 pg/mL Normal 0-100 [facility] Comment on above: Performed By: #### L 503.6620 #### [facility] Laboratory [address] [place], [address] Basic Metabolic Profile (BMP )on 05-31-2024 BUN/CRE 17.5 RATIO Normal 10-20 [facility] Comment on above: Order Comment: 'TROP ' Serial specimen #1, #2 or #3: 1 Performed By: #### L 500.2500, L100.0100, L501.4020 #### [facility] [address] [place], [address] CA,Total 8.6 mg/dL Normal 8.5-10.1 [facility] Comment on above: Order Comment: 'TROP ' Serial specimen #1, #2 or #3: 1 Performed By: #### L 500.2500, L100.0100, L501.4020 #### [facility] [address] [place], [address] Chloride [Moles/Vol] 101 mmol/L Normal 98-107 [facility] Comment on above: Order Comment: 'TROP ' Serial specimen #1, #2 or #3: 1 Performed By: #### L 500.2500, L100.0100, L501.4020 #### [facility] [address] [place], [address] CO2 [Moles/Vol] 36.0 mmol/L High 21.0-32.0 [facility] Comment on above: Order Comment: 'TROP ' Serial specimen #1, #2 or #3: 1 Performed By: #### L 500.2500, L100.0100, L501.4020 #### [facility] [address] [place], [address] Creatinine [Mass/Vol] 0.91 mg/dL Normal 0.70-1.30 [facility] Comment on above: Order Comment: 'TROP ' Serial specimen #1, #2 or #3: 1 Result Comment: The validity of the calculated GFR GFRAA in patients over 70 years has not been determined. Clinical correlation is essential. Performed By: #### L 500.2500, L100.0100, L501.4020 #### [facility] [address] [place], [address] ECRCL 82.70 ml/min Normal [facility] Comment on above: Order Comment: 'TROP ' Serial specimen #1, #2 or #3: 1 Performed By: #### L 500.2500, L100.0100, L501.4020 #### [facility] [address] [place], [address] EST GFR - AA 108 mL/min Normal >60 [facility] Comment on above: Order Comment: 'TROP ' Serial specimen #1, #2 or #3: 1 Result Comment: Afri can [place] GFR Calc Performed By: #### L 500.2500, L100.0100, L501.4020 #### [facility] [address] [place], [address] GAP 2 Low 5-15 [facility] Comment on above: Order Comment: 'TROP ' Serial specimen #1, #2 or #3: 1 Performed By: #### L 500.2500, L100.0100, L501.4020 #### [facility] [address] [place], [address] GFR/1.73 sq M.predicted among non-blacks MDRD (S/P/Bld) [Vol rate/Area] 89 mL/min/{1.73_m2} Normal >60 [facility] Comment on above: Order Comment: 'TROP ' Serial specimen #1, #2 or #3: 1 Result Comment: Non- GFR Calc Performed By: #### L 500.2500, L100.0100, L501.4020 #### [facility] [address] [place], [address] Glucose [Mass/Vol] 115 mg/dL High 74-106 [facility] Comment on above: Order Comment: 'TROP ' Serial specimen #1, #2 or #3: 1 Result Comment: Fast ing Glucose result from 100 to 125 mg/dL suggests IMPAIRED HOMEOSTASIS per A.D.A. criteria. Performed By: #### L 500.2500, L100.0100, L501.4020 #### [facility] [address] [place], [address] Potassium [Moles/Vol] 4.0 mmol/L Normal 3.5-5.1 [facility] Comment on above: Order Comment: 'TROP ' Serial specimen #1, #2 or #3: 1 Performed By: #### L 500.2500, L100.0100, L501.4020 #### [facility] [address] [place], [address] Sodium [Moles/Vol] 139 mmol/L Normal 136-145 [facility] Comment on above: Order Comment: 'TROP ' Serial specimen #1, #2 or #3: 1 Performed By: #### L 500.2500, L100.0100, L501.4020 #### [facility] [address] [place], [address] Urea nitrogen [Mass/Vol] 16 mg/dL Normal 7-18 [facility] Comment on above: Order Comment: 'TROP ' Serial specimen #1, #2 or #3: 1 Performed By: #### L 500.2500, L100.0100, L501.4020 #### [facility] [address] [place], [address] Bilirubin Test strip Ql (U)O rdered By: Alcides Hanks on 05-31-2024 Bilirubin Ql (U) Negative Negative [facility] CTA Chest W/WO Contraston CTA Chest W/WO Contrast [facility] Imaging Services [address] [place] [address] CTA Chest W/WO Contrast MR#: [id number] Acct: [id number] Name: WOLF TURCIOS JrFlorence Rep #: [id number] : 1960 M 64 From: Quoc Carrillo MD PCP: Dr. Iker Blackwell MD Status: REG ER Study: CTA Chest W/WO Contrast Date of Exam: 05/31/24 Exam# [id number] Ordering Dr: Alcides Hanks DO [id number] EXAM: CT ANGIOGRAPHY CHEST WITHOUT AND WITH [...] Iker Blackwell MD; Dr. Alcides Hanks DO [employer]: Signed Normal [facility] Epithelial cells.squamous LM Ql (Urine sed)Ordered By: Alcides Hanks on 05-31-2024 Epithelial cells.squamous LM.HPF (Urine sed) [#/Area] 0 /[HPF] 0-5 [facility] Glucose Ql (U)Ordered By: Arnie Hanks on 05-31-2024 Urine Glucose (UA) Normal mg/dl Normal [facility] Ketones Test strip Ql (U)Ord ered By: Alcides Hanks on 05-31-2024 Ketones Ql (U) Negative Negative [facility] L501.4020on 05-31-2024 TROPONIN-I HS 8 pg/mL Normal 3.0-78.0 [facility] Comment on above: Order Comment: 'TROP ' Serial specimen #1, #2 or #3: 1 Result Comment: Plea se Note: New Test Units and Gender Specific Reference Ranges. For more information see Policy Stat Procedure [place] High Sensitivity Troponin (TNIH) and attachments. Performed By: #### L 500.2500, L100.0100, L501.4020 #### [facility] [address] [place], [address] Lactic Acidon 05-31-2024 Lactate [Moles/Vol] 1.6 mmol/L Normal 0.4-1.9 [facility] Comment on above: Order Comment: Y Performed By: #### L 503.6620 #### [facility] [address] [place], [address] Lipaseon 05-31-2024 Lipase [Catalytic activity/Vol] 15 U/L Normal 13-75 [facility] Comment on above: Order Comment: 'TROP ' Serial specimen #1, #2 or #3: 1 Result Comment: Plefarhana acosta note: LIPASE revised reference range effective 22. New Lipase methodology. Expected to produce lower values than the previous assay method. NEW Reference Range: 13 - 75 U/L Performed By: #### L 500.2500, L100.0100, L501.4020 #### [facility] [address] [place], [address] Liver Profileon 05-31-2024 Albumin [Mass/Vol] 2.9 g/dL Low 3.2-5.0 [facility] Comment on above: Order Comment: 'TROP ' Serial specimen #1, #2 or #3: 1 Performed By: #### L 500.2500, L100.0100, L501.4020 #### [facility] [address] [place], [address] ALK P 86 U/L Normal 45-117 [facility] Comment on above: Order Comment: 'TROP ' Serial specimen #1, #2 or #3: 1 Performed By: #### L 500.2500, L100.0100, L501.4020 #### [facility] [address] [place], [address] ALT [Catalytic activity/Vol] 52 U/L Normal 16-61 [facility] Comment on above: Order Comment: 'TROP ' Serial specimen #1, #2 or #3: 1 Performed By: #### L 500.2500, L100.0100, L501.4020 #### [facility] [address] [place], [address] AST [Catalytic activity/Vol] 21 U/L Normal 15-37 [facility] Comment on above: Order Comment: 'TROP ' Serial specimen #1, #2 or #3: 1 Performed By: #### L 500.2500, L100.0100, L501.4020 #### [facility] [address] [place], [address] Bilirubin [Mass/Vol] 0.40 mg/dL Normal 0.20-1.00 [facility] Comment on above: Order Comment: 'TROP ' Serial specimen #1, #2 or #3: 1 Result Comment: For patients on eltrombopag therapy, use of Dimension [place] TBIL is not recommended. Performed By: #### L 500.2500, L100.0100, L501.4020 #### [facility] [facility] [address] [place], [address] Bilirubin.direct [Mass/Vol] 0.10 mg/dL Normal 0.00-0.30 [facility] Comment on above: Order Comment: 'TROP ' Serial specimen #1, #2 or #3: 1 Performed By: #### L 500.2500, L100.0100, L501.4020 #### [facility] [address] [place], [address] Globulin (S) [Mass/Vol] 3.5 g/dL Normal 2.2-4.2 [facility] Comment on above: Order Comment: 'TROP ' Serial specimen #1, #2 or #3: 1 Performed By: #### L 500.2500, L100.0100, L501.4020 #### [facility] [address] [place], [address] T PROT 6.4 g/dL Normal 6.4-8.2 [facility] Comment on above: Order Comment: 'TROP ' Serial specimen #1, #2 or #3: 1 Performed By: #### L 500.2500, L100.0100, L501.4020 #### [facility] [address] [place], [address] M100.678on 05-31-2024 M100.678 Pending SARS-CoV-2 (COVID 19) Negative INFLUENZA A Negative INFLUENZA B Negative RSV PCR Negative Normal [facility] Comment on above: Performed By: #### M 100.678 ####[facility] [address] [place], [address] Microscopic analysis of urin e for red blood cells (RBC)Ordered By: Alcides Hanks on 05-31-2024 Urine RBC 0 SEEN /hpf 0-5 [facility] Mucus LM Ql (Urine sed)Order ed By: Alcides Hanks on 05-31-2024 Mucus Ql (Urine sed) 0 SEEN /hpf [facility] Nitrite Test strip Ql (U)Ord ered By: Alcides Hanks on 05-31-2024 Nitrite Ql (U) Negative Negative [facility] Partial Thromboplast Timeon 05-31-2024 aPTT Coag (Bld) [Time] 22.8 s Low 24.1-36.2 [facility] Comment on above: Performed By: #### L 503.6620 #### [facility] [address] [place], [address] Protein Test strip Ql (U)Ord ered By: Alcides Hanks on 05-31-2024 Protein Ql (U) 15 mg/dl High Negative [facility] Prothrombin Time w/INRon INR Coag (PPP) [Relative time] 0.9 {INR} Normal [facility] Comment on above: Performed By: #### L 503.6620 #### [facility] [address] [place], [address] PT Coag (PPP) [Time] 11.8 s Normal 11.7-14.9 [facility] Comment on above: Performed By: #### L 503.6620 #### [facility] [address] [place], [address] Urinalysis, Completeon 05-31 AMORPHOUS 2+ Normal [facility] Comment on above: Order Comment: SENT LABEL TO PCU TO COLLECTCOLLECTOR TO SPECIFY Performed By: #### M 100.2200, L400.0001 ####[facility] [address] [place], [address] BACTERIA 0 SEEN Normal None Seen [facility] Comment on above: Order Comment: SENT LABEL TO PCU TO COLLECTCOLLECTOR TO SPECIFY Performed By: #### M 100.2200, L400.0001 ####[facility] [address] [place], [address] EPI,SQUAMOUS 0 SEEN Normal 0-5 [facility] Comment on above: Order Comment: SENT LABEL TO PCU TO COLLECTCOLLECTOR TO SPECIFY Performed By: #### M 100.2200, L400.0001 ####[facility] [address] [place], [address] Mucus Ql (Urine sed) 0 SEEN Normal [facility] Comment on above: Order Comment: SENT LABEL TO PCU TO COLLECTCOLLECTOR TO SPECIFY Performed By: #### M 100.2200, L400.0001 ####[facility] [address] [place], [address] RBC 0 SEEN Normal 0-5 [facility] Comment on above: Order Comment: SENT LABEL TO PCU TO COLLECTCOLLECTOR TO SPECIFY Performed By: #### M 100.2200, L400.0001 ####[facility] [address] [place], [place], [address] WBC 0 SEEN Normal 0-5 [facility] Comment on above: Order Comment: SENT LABEL TO PCU TO COLLECTCOLLECTOR TO SPECIFY Performed By: #### M 100.2200, L400.0001 ####[facility] [address] [place], [place], [id number] Urine blood detectionOrdered By: Alcides Hanks on 05-31-2024 Urine Occult Blood Negative Negative [facility] Urine clarityOrdered By: Gisela Hanks on 05-31-2024 Clarity (U) Sl. Cloudy Clear [facility] Urine color determinationOrd ered By: Alcides Hanks on 05-31-2024 Color (U) Yellow Yellow [facility] Urine cultureOrdered By: Gisela Hanks on 05-31-2024 Bacteria identified Cx Nom (U) Mixed Gram Pos & Gram Neg Org Abnormal [facility] Urine leukocyte esterase det ection by dipstickOrdered By: Alcides Hanks on 05-31-2024 Leukocyte esterase Test strip Ql (U) Negative Negative [facility] Urine pHOrdered By: Alcides badillo on 05-31-2024 pH (U) 7.0 [pH] 5.0 - 8.0 [facility] Urine sediment bacteria coun t by microscopy (number/high power field)Ordered By: Alcides Hanks on 05-31-2024 Bacteria LM.HPF (Urine sed) [#/Area] 0 /[HPF] None Seen [facility] Urine specific gravity measu rementOrdered By: Alcides Hanks on 05-31-2024 Specific gravity (U) [Rel density] 1.010 1.002-1.030 [facility] Urobilinogen Ql (U)Ordered B y: Alcides Hanks on 05-31-2024 Urine Urobilinogen Normal mg/dl Normal [facility] White blood cell countOrdere d By: Alcides Hanks on 05-31-2024 Urine WBC 0 SEEN /hpf 0-5 [facility] 12 Lead EKGon 05-30-2024 12 Lead EKG [facility] [address] [place] [address] 12 Lead EKG 05/30/24 2327 MR#: [id number] Acct: [id number] Name: WOLF TURCIOS Jr. Rep #: [id number] : 1960 64 From: Rohit Hyman MD [...] ECG Confirmed by ROCK BOYER, ROHIT ([id number]), non linear editor YENNY NUNEZ ([id number]) on 06/02/2024 2:14:35 PM Referred By: TB Confirmed By: ROHIT HYMAN MD 06/02/24 1414 Date Rohit Hyman MD CC: Dr. Iker Blackwell MD; Dr. Alcides Hanks DO Signed Normal [facility] Absolute neutrophil countOrd ered By: Alcides Hanks on 05-30-2024 Neutrophils (Bld) [#/Vol] 11.8 10*3/uL High 2.0-7.7 [facility] Arterial patency Wrist arter y --pre arterial punctureOrdered By: Alcides Hanks on 05-30-2024 Humaira Test Positive [facility] BNP (brain natriuretic pepti de measurement)Ordered By: Alcides Hanks on 05-30-2024 Natriuretic peptide B (Bld) [Mass/Vol] 11.7 pg/mL 0-100 [facility] Base excess Calc (BldV) [Mol es/Vol]Ordered By: Alcides Hanks on 05-30-2024 Blood Gas Base Excess 11 mmol/L High -2-2 [facility] Basophil percentageOrdered B y: Alcides Hanks on 05-30-2024 Basophils/100 WBC (Bld) 0.3 % 0-1 [facility] Bilirubin directOrdered By: Alcides Hanks on 05-30-2024 Bilirubin.direct [Mass/Vol] 0.10 mg/dL 0.00-0.30 [facility] Bilirubin, totalOrdered By: Alcides Hanks on 05-30-2024 Bilirubin [Mass/Vol] 0.40 mg/dL 0.20-1.00 [facility] Comment on above: For patients on eltr ombopag therapy, use of Dimension [place] TBIL is not recommended. Blood Gases by [facility] 024 HUMAIRA TEST Positive Normal [facility] Comment on above: Performed By: #### L 503.6620 #### [facility] [address] [place], [address] Base excess Calc (Bld) [Moles/Vol] 11 mmol/L High -2 to +2 [facility] Comment on above: Performed By: #### L 503.6620 #### [facility] [address] [place], [address] Blood Gas Type ART Normal [facility] Comment on above: Performed By: #### L 503.6620 #### [facility] [address] [place], [address] CO2 [Moles/Vol] 38 mmol/L [facility] Comment on above: Performed By: #### L 503.6620 #### [facility] [address] [place], [address] FI02 2.0 Normal [facility] Comment on above: Performed By: #### L 503.6620 #### [facility] [address] [place], [address] HCO3 (Bld) [Moles/Vol] 36.3 mmol/L High 22-26 [facility] Comment on above: Performed By: #### L 503.6620 #### [facility] [address] [place], [address] Mode Not entered Normal [facility] Comment on above: Performed By: #### L 503.6620 #### [facility] [address] [place], [address] O2 Delivery Dev Cannula Normal [facility] Comment on above: Performed By: #### L 503.20 #### [facility] [address] [place], [address] pCO2 60.7 mmHg High 35-45 [facility] Comment on above: Performed By: #### L 503.20 #### [facility] [address] [place], [address] pH (Bld) 7.39 [pH] Normal 7.35-7.45 [facility] Comment on above: Performed By: #### L 503.20 #### [facility] [address] [place], [address] PO2 92 mmHG Normal 75-100 [facility] Comment on above: Performed By: #### L 503.20 #### [facility] [address] [place], [address] SITE L Radial Normal [facility] Comment on above: Performed By: #### L 503.6620 #### [facility] [address] [place], [address] SO2 97 Normal 95-99 [facility] Comment on above: Performed By: #### L 503.6620 #### [facility] [address] [place], [address] Blood bicarbonate measuremen tOrdered By: Alcides Hanks on 05-30-2024 Blood Gas Bicarbonate Actual 36.3 mmol/L High 22-26 [facility] Blood cultureOrdered By: Gisela Hanks on 05-30-2024 Bacteria identified Cx Nom (Bld) No growth in 5 days. [facility] Bacteria identified Cx Nom (Bld) No growth in 5 days. [facility] Blood urea nitrogen (BUN)/cr eatinine ratioOrdered By: Alcides Hanks on 05-30-2024 Urea nitrogen/Creatinine [Mass ratio] 17.5 mg/mg 10- [facility] CBC W/Diff, Automatedon 05-09 Absolute Lymph 2.11 X10 3/uL Normal 0.83-4.51 [facility] Comment on above: Performed By: #### L 503.6620 #### [facility] [address] [place], [address] Absolute Neut 11.8 X10 3/uL High 2.0-7.7 [facility] Comment on above: Performed By: #### L 503.6620 #### [facility] [address] [place], [address] Basophils/100 WBC (Bld) 0.3 % Normal 0-1 [facility] Comment on above: Performed By: #### L 503.20 #### [facility] [address] [place], [address] Eosinophils/100 WBC (Bld) 6.6 % High 0-5 [facility] Comment on above: Performed By: #### L 503.6620 #### [facility] [address] [place], [address] Erythrocyte distribution width (RBC) [Ratio] 13.2 % Normal 11.6-14.6 [facility] Comment on above: Performed By: #### L 503.6620 #### [facility] [address] [place], [address] Hematocrit (Bld) [Volume fraction] 49.5 % Normal 40-54 [facility] Comment on above: Performed By: #### L 503.6620 #### [facility] [address] [place], [address] Hemoglobin (Bld) [Mass/Vol] 15.6 g/dL Normal 13.0-16.5 [facility] Comment on above: Performed By: #### L 503.6620 #### [facility] [address] [place], [address] IG% 2.100 High 0.0-0.9 [facility] Comment on above: Result Comment: IG% - Immature Granulocytes (promyelocytes, myelocytes and metamyelocytes) > 1% indicates that a LEFT SHIFT is Present. Performed By: #### L 503.20 #### [facility] [address] [place], [address] Lymphocytes/100 WBC (Bld) 12.7 % Low 19-41 [facility] Comment on above: Performed By: #### L 503.20 #### [facility] [address] [place], [address] MCH (RBC) [Entitic mass] 30.2 pg Normal 27.0-32.0 [facility] Comment on above: Performed By: #### L 503.20 #### [facility] [address] [place], [address] MCHC (RBC) [Mass/Vol] 31.5 g/dL Low 32-36 [facility] Comment on above: Performed By: #### L 503.20 #### [facility] [address] [place], [address] MCV (RBC) [Entitic vol] 95.9 fL High 80-94 [facility] Comment on above: Performed By: #### L 503.20 #### [facility] [address] [place], [address] Monocytes/100 WBC (Bld) 7.3 % Normal 0-10 [facility] Comment on above: Performed By: #### L 503.20 #### [facility] [address] [place], [address] Neutrophils/100 WBC (Bld) 71.0 % High 47-70 [facility] Comment on above: Performed By: #### L 503.20 #### [facility] [address] [place], [address] Nucleated RBC (Bld) [#/Vol] 0 10*3/uL Normal 0-5 [facility] Comment on above: Performed By: #### L 503.6619 #### [facility] [address] [place], [address] Platelet mean volume (Bld) [Entitic vol] 8.8 fL Normal 6.2-12.0 [facility] Comment on above: Performed By: #### L 503.6619 #### [facility] [address] [place], [address] Platelets (Bld) [#/Vol] 261 10*3/uL Normal 150-450 [facility] Comment on above: Performed By: #### L 503.6619 #### [facility] [address] [place], [address] RBC (Bld) [#/Vol] 5.16 10*6/uL Normal 4.6-6.2 [facility] Comment on above: Performed By: #### L 503.20 #### [facility] [address] [place], [address] RDW SD 47.0 fl High 35.1-43.9 [facility] Comment on above: Performed By: #### L 503.20 #### [facility] [address] [place], [address] WBC (Bld) [#/Vol] 16.6 10*3/uL High 4.4-11.0 [facility] Comment on above: Performed By: #### L 503.6619 #### [facility] [address] [place], [address] Carbon dioxide measurementOr dered By: Alcides Hanks on 05-30-2024 CO2 [Moles/Vol] 36.0 mmol/L High 21.0-32.0 [facility] Chloride measurementOrdered By: Alcides Hanks on 05-30-2024 Chloride [Moles/Vol] 101 mmol/L 98-107 [facility] Determination of fraction of inspired oxygenOrdered By: Alcides Hanks on 05-30-2024 Blood Gas Oxygen Percent 2.0 [facility] Emergency Department Summary on 05-30-2024 Emergency Department Summary [facility] Medical Records Department [address] [place] [address] Emergency Department Summary 05/30/24 MR#: [id number] Acct: [id number] Name: WOLF TURCIOS Jr. Rep #: [id number] : 1960 64 From: Alcides Hanks DO [...] therefore they placed him on 5 L. 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 Normal [facility] Eosinophil percentageOrdered By: Alcides Hanks on 05-30-2024 Eosinophils/100 WBC (Bld) 6.6 % High 0-5 [facility] Erythrocyte distribution wid th ratioOrdered By: Alcides Hanks on 05-30-2024 Erythrocyte distribution width (RBC) [Ratio] 13.2 % 11.6-14.6 [facility] Erythrocyte distribution wid th standard deviationOrdered By: Alcides Hanks on 05-30-2024 Erythrocyte distribution width (RBC) [Entitic vol] 47.0 fL High 35.1-43.9 [facility] Estimated glomerular filtrat ion rate (GFR) AmericanOrdered By: Alcides Hanks on 05-30-2024 Estimated GFR (MDRD) Amer 108 mL/min >60 [facility] Comment on above: GFR Calc Estimation of creatinine kehinde aranceOrdered By: Alcides Hanks on 05-30-2024 Estimated Creatinine Clearance Calc 82.70 ml/min [facility] Glomerular filtration rate ( GFR) estimationOrdered By: Alcides Hanks on 05-30-2024 Estimated GFR (MDRD) Non-Af Amer 89 mL/min >60 [facility] Comment on above: Non- GFR Calc Glucose measurementOrdered B y: Alcides Hanks on 05-30-2024 Glucose [Mass/Vol] 115 mg/dL High 74-106 [facility] Comment on above: Fasting Glucose resu lt from 100 to 125 mg/dL suggests IMPAIRED HOMEOSTASIS per A.D.A. criteria. Hematocrit Auto (Bld) [Volum e fraction]Ordered By: Alcides Hanks on 05-30-2024 Hematocrit (Bld) [Volume fraction] 49.5 % 40-54 [facility] Hemoglobin measurementOrdere d By: Alcides Hanks on 05-30-2024 Hemoglobin (Bld) [Mass/Vol] 15.6 g/dL 13.0-16.5 [facility] Immature granulocytes/100 WB C Auto (Bld)Ordered By: Alcides Hanks on 05-30-2024 Immature granulocytes/100 WBC (Bld) 2.100 % High 0.0-0.9 [facility] Comment on above: IG% - Immature Granu locytes (promyelocytes, myelocytes and metamyelocytes) > 1% indicates that a LEFT SHIFT is Present. Influenza virus A and B and SARS-CoV-2 (COVID-19) and Respiratory syncytial virus RNAOrdered By: Alcides Hanks on 05-30-2024 SARS-CoV-2 (COVID-19) RNA MOMO+probe Ql (Unsp spec) [facility] International normalized rat io (INR) calculationOrdered By: Alcides Hanks on 05-30-2024 INR Coag (Bld) [Relative time] 0.9 {INR} [facility] - Chemistry and C hemistry - challengeOrdered By: Alcides Hanks on 05-30-2024 AST [Catalytic activity/Vol] 21 U/L 15-37 [facility] Lactic acid measurementOrder ed By: Alcides Hanks on 05-30-2024 Lactate [Moles/Vol] 1.6 mmol/L 0.4-2.0 [facility] Lipase measurementOrdered By : Alcides Hanks on 05-30-2024 Lipase [Catalytic activity/Vol] 15 U/L 13-75 [facility] Comment on above: Please note:LIPASE r evised reference range effective 22. New Lipase methodology. Expected to produce lower values than the previous assay method. NEW Reference Range: 13 - 75 U/L Lymphocytes Auto (Unsp spec) [#/Vol]Ordered By: Alcides Hanks on 05-30-2024 Lymphocytes (Bld) [#/Vol] 2.11 10*3/uL 0.83-4.51 [facility] Lymphocytes/100 WBC Auto (Un sp spec)Ordered By: Alcides Hanks on 05-30-2024 Lymphocytes/100 WBC (Bld) 12.7 % Low 19-41 [facility] MCV (mean corpuscular volume ) determinationOrdered By: Alcides Hanks on 05-30-2024 MCV (RBC) [Entitic vol] 95.9 fL High 80-94 [facility] Mean corpuscular hemoglobin (MCH) determinationOrdered By: Alcides Hanks on 05-30-2024 MCH (RBC) [Entitic mass] 30.2 pg 27.0-32.0 [facility] Mean corpuscular hemoglobin concentration (MCHC) determinationOrdered By: Alcides Hanks on 05-30-2024 MCHC (RBC) [Mass/Vol] 31.5 g/dL Low 32-36 [facility] Mean platelet volume determi nationOrdered By: Alcides Hanks on 05-30-2024 Platelet mean volume (Bld) [Entitic vol] 8.8 fL 6.2-12.0 [facility] Monocyte percentageOrdered B y: Alcides Hanks on 05-30-2024 Monocytes/100 WBC (Bld) 7.3 % 0-10 [facility] Neutrophil percentageOrdered By: Alcides Hanks on 05-30-2024 Neutrophils/100 WBC (Bld) 71.0 % High 47-70 [facility] No Panel InformationOrdered By: Alcides Hanks on 05-30-2024 Blood Gas Sample Site L Radial [facility] Blood Gas Specimen Type ART [facility] Blood Gas Vent Mode Not entered [facility] Oxygen Delivery Device Cannula [facility] Nucleated red blood cell per centageOrdered By: Alcides Hanks on 05-30-2024 Nucleated RBC/100 WBC (Bld) [Ratio] 0 % 0-5 [facility] Oxygen saturation measuremen tOrdered By: Alcides Hanks on 05-30-2024 Blood Gas Oxygen Saturation 97 % 95-99 [facility] Partial pressure of carbon d ioxide measurementOrdered By: Alcides Hanks on 05-30-2024 Arterial Blood Partial Pressure CO2 60.7 mmHg High 35-45 [facility] Partial pressure of oxygen m easurementOrdered By: Alcides Hanks on 05-30-2024 Arterial Blood Partial Pressure O2 92 mmHG 75-100 [facility] Platelet countOrdered By: Arnie Hanks on 05-30-2024 Platelets (Bld) [#/Vol] 261 10*3/uL 150-450 [facility] Potassium measurementOrdered By: Alcides Hanks on 05-30-2024 Potassium [Moles/Vol] 4.0 mmol/L 3.5-5.1 [facility] Prothrombin timeOrdered By: Alcides Hanks on 05-30-2024 PT Coag (PPP) [Time] 11.8 s 11.7-14.9 [facility] RBC Auto (Bld) [#/Vol]Ordere d By: Alcides Hanks on 05-30-2024 RBC (Bld) [#/Vol] 5.16 10*6/uL 4.6-6.2 [facility] Serum anion gap measurementO rdered By: Alcidse Hanks on 05-30-2024 Anion gap [Moles/Vol] 2 mmol/L Low 5-15 [facility] Serum globulin measurementOr dered By: Alcides Hanks on 05-30-2024 Globulin (S) [Mass/Vol] 3.5 g/dL 2.2-4.2 [facility] Serum or plasma alanine augustine otransferase (ALT) measurementOrdered By: Alcides Hanks on 05-30-2024 ALT [Catalytic activity/Vol] 52 U/L 16-61 [facility] Serum or plasma albumin margie urement (mass/volume)Ordered By: Alcides Hanks on 05-30-2024 Albumin [Mass/Vol] 2.9 g/dL Low 3.2-5.0 [facility] Serum or plasma alkaline jacobo sphatase measurementOrdered By: Alcides Hanks on 05-30-2024 ALP [Catalytic activity/Vol] 86 U/L 45-117 [facility] Serum or plasma calcium margie urement (mass/volume)Ordered By: Alcides Hanks on 05-30-2024 Calcium [Mass/Vol] 8.6 mg/dL 8.5-10.1 [facility] Serum or plasma creatinine m easurement (mass/volume)Ordered By: Alcides Hanks on 05-30-2024 Creatinine [Mass/Vol] 0.91 mg/dL 0.70-1.30 [facility] Comment on above: The validity of the calculated GFR & GFRAA in patients over 70 years has not been determined. Clinical correlation is essential. Serum or plasma urea nitroge n measurement (mass/volume)Ordered By: Alcides Hanks on 05-30-2024 Urea nitrogen [Mass/Vol] 16 mg/dL 7-18 [facility] Sodium levelOrdered By: Tisha Hanks on 05-30-2024 Sodium [Moles/Vol] 139 mmol/L 136-145 [facility] Total carbon dioxide measure mentOrdered By: Alcides Hanks on 05-30-2024 Blood Gas Total CO2 38 mmol/L [facility] Total proteinOrdered By: Gisela Hanks on 05-30-2024 Protein [Mass/Vol] 6.4 g/dL 6.4-8.2 [facility] Troponin IOrdered By: Alcides Hanks on 05-30-2024 Troponin I High Sensitivity 8 pg/mL 3.0-78.0 [facility] Comment on above: Please Note: New Melvin t Units and Gender Specific Reference Ranges. For more information see Policy Stat Procedure [place] High Sensitivity Troponin (TNIH) and attachments. White blood cell (WBC) count Ordered By: Alcides Hanks on 05-30-2024 WBC (Bld) [#/Vol] 16.6 10*3/uL High 4.4-11.0 [facility] aPTT Coag (PPP) [Time]Ordere d By: Alcides Hanks on 05-30-2024 aPTT Coag (Bld) [Time] 22.8 s Low 24.1-36.2 [facility] pH (Unsp spec)Ordered By: Arnie lona Hanks on 05-30-2024 Blood Gas pH 7.39 7.35-7.45 [facility] Culture, Blood (WB)on 2023 [facility] Blood cultures x2, f rom two different sites No growth in 5 days. Normal [facility] Comment on above: Performed By: #### L 503.6620 #### [facility] [address] [place], [place], [id number] Respiratory Cultureon 2023 RESPC Pseudomonas aerugino sa Amount Growth 3+ Pseudomonas aeruginosa: REACTION Aztreonam Islt KB 18 I Pseudomonas aeruginosa: REACTION Amikacin Islt RAFAELA 4 S Cefepime Islt RAFAELA 2 S Ciprofloxacin Islt RAFAELA <=0.06 S Imipenem Islt RAFAELA 2 S levoFLOXacin Islt RAFAELA <=0.12 S Meropenem Islt RAFAELA 1 S Pip+Tazo Islt RAFAELA 8 S Tobramycin Islt RAFAELA <=1 S Normal [facility] Comment on above: Performed By: #### L 7157.0500 #### [facility] [address] [place], [place], [id number] Gram Stainon 05-22-2024 GS Acceptable Specimen? Yes (<25 Epithelial cells per/lpf) Gram Stain 4+ Gram negative rods Rare Epithelial cells 1+ White Blood Cells Rare Gram positive cocci Normal [facility] Comment on above: Performed By: #### L 7550.0500 #### [facility] [address] [place], [place], [id number] Absolute neutrophil countOrd ered By: White on 05-21-2024 Neutrophils (Bld) [#/Vol] 8.0 10*3/uL High 2.0-7.7 [facility] Albumin to globulin ratioOrd ered By: White on 05-21-2024 Albumin/Globulin [Mass ratio] 0.9 {ratio} 0.9-2.4 [facility] Basophil percentageOrdered B y: Noelle Fleming on 05-21-2024 Basophils/100 WBC (Bld) 0.2 % 0-1 [facility] Bilirubin, totalOrdered By: Noelle White on 05-21-2024 Bilirubin [Mass/Vol] 0.30 mg/dL 0.20-1.00 [facility] Comment on above: For patients on eltr ombopag therapy, use of Dimension [place] TBIL is not recommended. Blood urea nitrogen (BUN)/cr eatinine ratioOrdered By: Noelle White on 05-21-2024 Urea nitrogen/Creatinine [Mass ratio] 15.0 mg/mg 10- [facility] CBC W/Diff, Automatedon 05-08 Absolute Lymph 0.40 X10 3/uL Low 0.83-4.51 [facility] Comment on above: Performed By: #### L 500.2500, L100.0100, L501.4020 #### [facility] [address] [place], [address] Absolute Neut 8.0 X10 3/uL High 2.0-7.7 [facility] Comment on above: Performed By: #### L 500.2500, L100.0100, L501.4020 #### [facility] [address] [place], [address] Basophils/100 WBC (Bld) 0.2 % Normal 0-1 [facility] Comment on above: Performed By: #### L 500.2500, L100.0100, L501.4020 #### [facility] [address] [place], [address] Eosinophils/100 WBC (Bld) 0.1 % Normal 0-5 [facility] Comment on above: Performed By: #### L 500.2500, L100.0100, L501.4020 #### [facility] [address] [place], [address] Erythrocyte distribution width (RBC) [Ratio] 13.0 % Normal 11.6-14.6 [facility] Comment on above: Performed By: #### L 500.2500, L100.0100, L501.4020 #### [facility] [address] [place], [address] Hematocrit (Bld) [Volume fraction] 46.4 % Normal 40-54 [facility] Comment on above: Performed By: #### L 500.2500, L100.0100, L501.4020 #### [facility] [address] [place], [address] Hemoglobin (Bld) [Mass/Vol] 14.7 g/dL Normal 13.0-16.5 [facility] Comment on above: Performed By: #### L 500.2500, L100.0100, L501.4020 #### [facility] [address] [place], [address] IG% 0.100 Normal 0.0-0.9 [facility] Comment on above: Result Comment: IG% - Immature Granulocytes (promyelocytes, myelocytes and metamyelocytes) > 1% indicates that a LEFT SHIFT is Present. Performed By: #### L 500.2500, L100.0100, L501.4020 #### [facility] [address] [place], [address] Lymphocytes/100 WBC (Bld) 4.7 % Low 19-41 [facility] Comment on above: Performed By: #### L 500.2500, L100.0100, L501.4020 #### [facility] [address] [place], [address] MCH (RBC) [Entitic mass] 30.6 pg Normal 27.0-32.0 [facility] Comment on above: Performed By: #### L 500.2500, L100.0100, L501.4020 #### [facility] [address] [place], [address] MCHC (RBC) [Mass/Vol] 31.7 g/dL Low 32-36 [facility] Comment on above: Performed By: #### L 500.2500, L100.0100, L501.4020 #### [facility] [address] [place], [address] MCV (RBC) [Entitic vol] 96.5 fL High 80-94 [facility] Comment on above: Performed By: #### L 500.2500, L100.0100, L501.4020 #### [facility] [address] [place], [address] Monocytes/100 WBC (Bld) 0.8 % Normal 0-10 [facility] Comment on above: Performed By: #### L 500.2500, L100.0100, L501.4020 #### [facility] [address] [place], [address] Neutrophils/100 WBC (Bld) 94.1 % High 47-70 [facility] Comment on above: Performed By: #### L 500.2500, L100.0100, L501.4020 #### [facility] [address] [place], [address] Nucleated RBC (Bld) [#/Vol] 0 10*3/uL Normal 0-5 [facility] Comment on above: Performed By: #### L 500.2500, L100.0100, L501.4020 #### [facility] [address] [place], [address] Platelet mean volume (Bld) [Entitic vol] 9.3 fL Normal 6.2-12.0 [facility] Comment on above: Performed By: #### L 500.2500, L100.0100, L501.4020 #### [facility] [address] [place], [address] Platelets (Bld) [#/Vol] 272 10*3/uL Normal 150-450 [facility] Comment on above: Performed By: #### L 500.2500, L100.0100, L501.4020 #### [facility] [address] [place], [address] RBC (Bld) [#/Vol] 4.81 10*6/uL Normal 4.6-6.2 [facility] Comment on above: Performed By: #### L 500.2500, L100.0100, L501.4020 #### [facility] [address] [place], [address] RDW SD 46.3 fl High 35.1-43.9 [facility] Comment on above: Performed By: #### L 500.2500, L100.0100, L501.4020 #### [facility] [address] [place], [address] WBC (Bld) [#/Vol] 8.5 10*3/uL Normal 4.4-11.0 [facility] Comment on above: Performed By: #### L 500.2500, L100.0100, L501.4020 #### [facility] [address] [place], [address] Carbon dioxide measurementOr dered By: Noelle Fleming on 05-21-2024 CO2 [Moles/Vol] 32.0 mmol/L 21.0-32.0 [facility] Chloride measurementOrdered By: Noelle Fleming on 05-21-2024 Chloride [Moles/Vol] 103 mmol/L 98-107 [facility] Comprehensive Metabolic Prof ilon 05-21-2024 Albumin [Mass/Vol] 2.9 g/dL Low 3.2-5.0 [facility] Comment on above: Performed By: #### L 500.2500, L100.0100, L501.4020 #### [facility] [address] [place], [address] Albumin/Globulin [Mass ratio] 0.9 {ratio} Normal 0.9-2.4 [facility] Comment on above: Performed By: #### L 500.2500, L100.0100, L501.4020 #### [facility] [address] [place], [address] ALK P 79 U/L Normal 45-117 [facility] Comment on above: Performed By: #### L 500.2500, L100.0100, L501.4020 #### [facility] [address] [place], [address] ALT [Catalytic activity/Vol] 27 U/L Normal 16-61 [facility] Comment on above: Performed By: #### L 500.2500, L100.0100, L501.4020 #### [facility] [address] [place], [address] AST [Catalytic activity/Vol] 15 U/L Normal 15-37 [facility] Comment on above: Performed By: #### L 500.2500, L100.0100, L501.4020 #### [facility] [address] [place], [address] Bilirubin [Mass/Vol] 0.30 mg/dL Normal 0.20-1.00 [facility] Comment on above: Result Comment: For patients on eltrombopag therapy, use of Dimension [place] TBIL is not recommended. Performed By: #### L 500.2500, L100.0100, L501.4020 #### [facility] [address] [place], [address] BUN/CRE 15.0 RATIO Normal 10-20 [facility] Comment on above: Performed By: #### L 500.2500, L100.0100, L501.4020 #### [facility] [address] [place], [address] CA,Total 8.9 mg/dL Normal 8.5-10.1 [facility] Comment on above: Performed By: #### L 500.2500, L100.0100, L501.4020 #### [facility] [address] [place], [address] Chloride [Moles/Vol] 103 mmol/L Normal 98-107 [facility] Comment on above: Performed By: #### L 500.2500, L100.0100, L501.4020 #### [facility] [address] [place], [address] CO2 [Moles/Vol] 32.0 mmol/L Normal 21.0-32.0 [facility] Comment on above: Performed By: #### L 500.2500, L100.0100, L501.4020 #### [facility] [address] [place], [address] Creatinine [Mass/Vol] 0.93 mg/dL Normal 0.70-1.30 [facility] Comment on above: Result Comment: The validity of the calculated GFR GFRAA in patients over 70 years has not been determined. Clinical correlation is essential. Performed By: #### L 500.2500, L100.0100, L501.4020 #### [facility] [address] [place], [address] ECRCL 79.11 ml/min Normal [facility] Comment on above: Performed By: #### L 500.2500, L100.0100, L501.4020 #### [facility] [address] [place], [address] EST GFR - AA 105 mL/min Normal >60 [facility] Comment on above: Result Comment: Afri can [place] GFR Calc Performed By: #### L 500.2500, L100.0100, L501.4020 #### [facility] [address] [place], [address] GAP 6 Normal 5-15 [facility] Comment on above: Performed By: #### L 500.2500, L100.0100, L501.4020 #### [facility] [address] [place], [address] GFR/1.73 sq M.predicted among non-blacks MDRD (S/P/Bld) [Vol rate/Area] 87 mL/min/{1.73_m2} Normal >60 [facility] Comment on above: Result Comment: Non- GFR Calc Performed By: #### L 500.2500, L100.0100, L501.4020 #### [facility] [address] [place], [address] Globulin (S) [Mass/Vol] 3.3 g/dL Normal 2.2-4.2 [facility] Comment on above: Performed By: #### L 500.2500, L100.0100, L501.4020 #### [facility] [address] [place], [address] Glucose [Mass/Vol] 185 mg/dL High 74-106 [facility] Comment on above: Result Comment: Fast ing Glucose result greater than or equal to 126 mg/dL suggests DIABETES MELLITUS per A.D.A. criteria. Performed By: #### L 500.2500, L100.0100, L501.4020 #### [facility] [address] [place], [address] Potassium [Moles/Vol] 4.2 mmol/L Normal 3.5-5.1 [facility] Comment on above: Performed By: #### L 500.2500, L100.0100, L501.4020 #### [facility] [address] [place], [address] Sodium [Moles/Vol] 140 mmol/L Normal 136-145 [facility] Comment on above: Performed By: #### L 500.2500, L100.0100, L501.4020 #### [facility] [address] [place], [address] T PROT 6.2 g/dL Low 6.4-8.2 [facility] Comment on above: Performed By: #### L 500.2500, L100.0100, L501.4020 #### [facility] [address] [place], [address] Urea nitrogen [Mass/Vol] 14 mg/dL Normal 7-18 [facility] Comment on above: Performed By: #### L 500.2500, L100.0100, L501.4020 #### [facility] [address] [place], [address] Eosinophil percentageOrdered By: Noelle Fleming on 05-21-2024 Eosinophils/100 WBC (Bld) 0.1 % 0-5 [facility] Erythrocyte distribution wid th ratioOrdered By: Noelle Bernadette on 05-21-2024 Erythrocyte distribution width (RBC) [Ratio] 13.0 % 11.6-14.6 [facility] Erythrocyte distribution wid th standard deviationOrdered By: Noelle Fleming on 05-21-2024 Erythrocyte distribution width (RBC) [Entitic vol] 46.3 fL High 35.1-43.9 [facility] Estimated glomerular filtrat ion rate (GFR) AmericanOrdered By: Noelle Fleming on 05-21-2024 Estimated GFR (MDRD) Amer 105 mL/min >60 [facility] Comment on above: GFR Calc Estimation of creatinine kehinde aranceOrdered By: Noelle Fleming on 05-21-2024 Estimated Creatinine Clearance Calc 79.11 ml/min [facility] Glomerular filtration rate ( GFR) estimationOrdered By: Noelle Fleming on 05-21-2024 Estimated GFR (MDRD) Non-Af Amer 87 mL/min >60 [facility] Comment on above: Non- GFR Calc Glucose measurementOrdered B y: Noelle Fleming on 05-21-2024 Glucose [Mass/Vol] 185 mg/dL High 74-106 [facility] Comment on above: Fasting Glucose resu lt greater than or equal to 126 mg/dL suggests DIABETES MELLITUS per A.D.A. criteria. Gram stainOrdered By: Noelle Fleming on 05-21-2024 Microscopic observation Gram stain Nom (Unsp spec) [facility] Hematocrit Auto (Bld) [Volum e fraction]Ordered By: Noelle Bernadette on 05-21-2024 Hematocrit (Bld) [Volume fraction] 46.4 % 40-54 [facility] Hemoglobin measurementOrdere d By: on 05-21-2024 Hemoglobin (Bld) [Mass/Vol] 14.7 g/dL 13.0-16.5 [facility] Immature granulocytes/100 WB C Auto (Bld)Ordered By: Noelle Bernadette on 05-21-2024 Immature granulocytes/100 WBC (Bld) 0.100 % 0.0-0.9 [facility] Comment on above: IG% - Immature Granu locytes (promyelocytes, myelocytes and metamyelocytes) > 1% indicates that a LEFT SHIFT is Present. Laboratory - Chemistry and C hemistry - challengeOrdered By: Noelle Bernadette on 05-21-2024 AST [Catalytic activity/Vol] 15 U/L 15-37 [facility] Lymphocytes Auto (Unsp spec) [#/Vol]Ordered By: Noelle Bernadette on 05-21-2024 Lymphocytes (Bld) [#/Vol] 0.40 10*3/uL Low 0.83-4.51 [facility] Lymphocytes/100 WBC Auto (Un sp spec)Ordered By: on 05-21-2024 Lymphocytes/100 WBC (Bld) 4.7 % Low 19-41 [facility] MCV (mean corpuscular volume ) determinationOrdered By: on 05-21-2024 MCV (RBC) [Entitic vol] 96.5 fL High 80-94 [facility] Mean corpuscular hemoglobin (MCH) determinationOrdered By: on 05-21-2024 MCH (RBC) [Entitic mass] 30.6 pg 27.0-32.0 [facility] Mean corpuscular hemoglobin concentration (MCHC) determinationOrdered By: on 05-21-2024 MCHC (RBC) [Mass/Vol] 31.7 g/dL Low 32-36 [facility] Mean platelet volume determi nationOrdered By: Noelle Bernadette on 05-21-2024 Platelet mean volume (Bld) [Entitic vol] 9.3 fL 6.2-12.0 [facility] Microorganism identified Cx Nom (Unsp spec)Ordered By: Noelle Fleming on 05-21-2024 Respiratory Culture Pseudomonas aeruginosa Abnormal [facility] Monocyte percentageOrdered B y: Noelle Bernadette on 05-21-2024 Monocytes/100 WBC (Bld) 0.8 % 0-10 [facility] Neutrophil percentageOrdered By: Bernadette on 05-21-2024 Neutrophils/100 WBC (Bld) 94.1 % High 47-70 [facility] Nucleated red blood cell per centageOrdered By: Noelle Bernadette on 05-21-2024 Nucleated RBC/100 WBC (Bld) [Ratio] 0 % 0-5 [facility] Platelet countOrdered By: Cally Fleming on 05-21-2024 Platelets (Bld) [#/Vol] 272 10*3/uL 150-450 [facility] Potassium measurementOrdered By: Noelle Fleming on 05-21-2024 Potassium [Moles/Vol] 4.2 mmol/L 3.5-5.1 [facility] RBC Auto (Bld) [#/Vol]Ordere d By: Noelle Fleming on 05-21-2024 RBC (Bld) [#/Vol] 4.81 10*6/uL 4.6-6.2 [facility] Serum anion gap measurementO rdered By: Noelle Fleming on 05-21-2024 Anion gap [Moles/Vol] 6 mmol/L 5-15 [facility] Serum globulin measurementOr dered By: Noelle Bernadette on 05-21-2024 Globulin (S) [Mass/Vol] 3.3 g/dL 2.2-4.2 [facility] Serum or plasma alanine augustine otransferase (ALT) measurementOrdered By: Noelle Fleming on 05-21-2024 ALT [Catalytic activity/Vol] 27 U/L 16-61 [facility] Serum or plasma albumin margie urement (mass/volume)Ordered By: Noelle Bernadette on 05-21-2024 Albumin [Mass/Vol] 2.9 g/dL Low 3.2-5.0 [facility] Serum or plasma alkaline jacobo sphatase measurementOrdered By: Noelle Bernadette on 05-21-2024 ALP [Catalytic activity/Vol] 79 U/L 45-117 [facility] Serum or plasma calcium margie urement (mass/volume)Ordered By: Noelle Fleming on 05-21-2024 Calcium [Mass/Vol] 8.9 mg/dL 8.5-10.1 [facility] Serum or plasma creatinine m easurement (mass/volume)Ordered By: Noelle Fleming on 05-21-2024 Creatinine [Mass/Vol] 0.93 mg/dL 0.70-1.30 [facility] Comment on above: The validity of the calculated GFR & GFRAA in patients over 70 years has not been determined. Clinical correlation is essential. Serum or plasma urea nitroge n measurement (mass/volume)Ordered By: Noelle Fleming on 05-21-2024 Urea nitrogen [Mass/Vol] 14 mg/dL 7-18 [facility] Sodium levelOrdered By: Danni mn Bernadette on 05-21-2024 Sodium [Moles/Vol] 140 mmol/L 136-145 [facility] Total proteinOrdered By: Maciel umn Bernadette on 05-21-2024 Protein [Mass/Vol] 6.2 g/dL Low 6.4-8.2 [facility] White blood cell (WBC) count Ordered By: Noelle Fleming on 05-21-2024 WBC (Bld) [#/Vol] 8.5 10*3/uL 4.4-11.0 [facility] 12 Lead EKGon 05-20-2024 12 Lead EKG [facility] [address] [place] [address] 12 Lead EKG 05/20/24 1920 MR#: [id number] Acct: [id number] Name: WOLF TURCIOS Rep #: [id number] : 1960 64 From: Chhaya Lam MD [...] ECG Confirmed by GENARO BOYER, KARINA ([id number]), non linear editor YENNY NUNEZ ([id number]) on 05/25/2024 1:34:47 PM Referred By: BB Confirmed By: KARINA LAM MD 05/25/24 1334 Date Chhaya Lam MD CC: Dr. Kunal Stone MD; Dr. Iker Blackwell MD; Dr. Elijah Guerrero, DO Signed Normal [facility] Basic Metabolic Profile (BMP )on 05-20-2024 BUN/CRE 12.9 RATIO Normal 10-20 [facility] Comment on above: Order Comment: 'TROP ' Serial specimen #1, #2 or #3: 1 Performed By: #### L 500.2500, L100.0100, L501.4020 #### [facility] [address] [place], [address] CA,Total 8.6 mg/dL Normal 8.5-10.1 [facility] Comment on above: Order Comment: 'TROP ' Serial specimen #1, #2 or #3: 1 Performed By: #### L 500.2500, L100.0100, L501.4020 #### [facility] [address] [place], [address] Chloride [Moles/Vol] 103 mmol/L Normal 98-107 [facility] Comment on above: Order Comment: 'TROP ' Serial specimen #1, #2 or #3: 1 Performed By: #### L 500.2500, L100.0100, L501.4020 #### [facility] [address] [place], [address] CO2 [Moles/Vol] 35.0 mmol/L High 21.0-32.0 [facility] Comment on above: Order Comment: 'TROP ' Serial specimen #1, #2 or #3: 1 Performed By: #### L 500.2500, L100.0100, L501.4020 #### [facility] [address] [place], [address] Creatinine [Mass/Vol] 0.86 mg/dL Normal 0.70-1.30 [facility] Comment on above: Order Comment: 'TROP ' Serial specimen #1, #2 or #3: 1 Result Comment: The validity of the calculated GFR GFRAA in patients over 70 years has not been determined. Clinical correlation is essential. Performed By: #### L 500.2500, L100.0100, L501.4020 #### [facility] [address] [place], [address] ECRCL 94.88 ml/min Normal [facility] Comment on above: Order Comment: 'TROP ' Serial specimen #1, #2 or #3: 1 Performed By: #### L 500.2500, L100.0100, L501.4020 #### [facility] [address] [place], [address] EST GFR - AA 116 mL/min Normal >60 [facility] Comment on above: Order Comment: 'TROP ' Serial specimen #1, #2 or #3: 1 Result Comment: Afri can [place] GFR Calc Performed By: #### L 500.2500, L100.0100, L501.4020 #### [facility] [address] [place], [address] GAP 3 Low 5-15 [facility] Comment on above: Order Comment: 'TROP ' Serial specimen #1, #2 or #3: 1 Performed By: #### L 500.2500, L100.0100, L501.4020 #### [facility] [address] [place], [address] GFR/1.73 sq M.predicted among non-blacks MDRD (S/P/Bld) [Vol rate/Area] 96 mL/min/{1.73_m2} Normal >60 [facility] Comment on above: Order Comment: 'TROP ' Serial specimen #1, #2 or #3: 1 Result Comment: Non- GFR Calc Performed By: #### L 500.2500, L100.0100, L501.4020 #### [facility] [address] [place], [address] Glucose [Mass/Vol] 108 mg/dL High 74-106 [facility] Comment on above: Order Comment: 'TROP ' Serial specimen #1, #2 or #3: 1 Result Comment: Fast ing Glucose result from 100 to 125 mg/dL suggests IMPAIRED HOMEOSTASIS per A.D.A. criteria. Performed By: #### L 500.2500, L100.0100, L501.4020 #### [facility] [address] [place], [address] Potassium [Moles/Vol] 3.8 mmol/L Normal 3.5-5.1 [facility] Comment on above: Order Comment: 'TROP ' Serial specimen #1, #2 or #3: 1 Performed By: #### L 500.2500, L100.0100, L501.4020 #### [facility] [address] [place], [address] Sodium [Moles/Vol] 141 mmol/L Normal 136-145 [facility] Comment on above: Order Comment: 'TROP ' Serial specimen #1, #2 or #3: 1 Performed By: #### L 500.2500, L100.0100, L501.4020 #### [facility] [address] [place], [address] Urea nitrogen [Mass/Vol] 11 mg/dL Normal 7-18 [facility] Comment on above: Order Comment: 'TROP ' Serial specimen #1, #2 or #3: 1 Performed By: #### L 500.2500, L100.0100, L501.4020 #### [facility] [address] [place], [address] CBC W/Diff, Automatedon 12 Absolute Lymph 1.85 X10 3/uL Normal 0.83-4.51 [facility] Comment on above: Performed By: #### L 500.2500, L100.0100, L501.4020 #### [facility] [address] [place], [address] Absolute Neut 7.3 X10 3/uL Normal 2.0-7.7 [facility] Comment on above: Performed By: #### L 500.2500, L100.0100, L501.4020 #### [facility] [address] [place], [address] Basophils/100 WBC (Bld) 0.9 % Normal 0-1 [facility] Comment on above: Performed By: #### L 500.2500, L100.0100, L501.4020 #### [facility] [address] [place], [address] Eosinophils/100 WBC (Bld) 3.1 % Normal 0-5 [facility] Comment on above: Performed By: #### L 500.2500, L100.0100, L501.4020 #### [facility] [address] [place], [address] Erythrocyte distribution width (RBC) [Ratio] 13.0 % Normal 11.6-14.6 [facility] Comment on above: Performed By: #### L 500.2500, L100.0100, L501.4020 #### [facility] [address] [place], [address] Hematocrit (Bld) [Volume fraction] 49.3 % Normal 40-54 [facility] Comment on above: Performed By: #### L 500.2500, L100.0100, L501.4020 #### [facility] [address] [place], [address] Hemoglobin (Bld) [Mass/Vol] 16.0 g/dL Normal 13.0-16.5 [facility] Comment on above: Performed By: #### L 500.2500, L100.0100, L501.4020 #### [facility] [address] [place], [address] IG% 0.400 Normal 0.0-0.9 [facility] Comment on above: Result Comment: IG% - Immature Granulocytes (promyelocytes, myelocytes and metamyelocytes) > 1% indicates that a LEFT SHIFT is Present. Performed By: #### L 500.2500, L100.0100, L501.4020 #### [facility] [address] [place], [address] Lymphocytes/100 WBC (Bld) 17.7 % Low 19-41 [facility] Comment on above: Performed By: #### L 500.2500, L100.0100, L501.4020 #### [facility] [address] [place], [address] MCH (RBC) [Entitic mass] 30.8 pg Normal 27.0-32.0 [facility] Comment on above: Performed By: #### L 500.2500, L100.0100, L501.4020 #### [facility] [address] [place], [address] MCHC (RBC) [Mass/Vol] 32.5 g/dL Normal 32-36 [facility] Comment on above: Performed By: #### L 500.2500, L100.0100, L501.4020 #### [facility] [address] [place], [address] MCV (RBC) [Entitic vol] 94.8 fL High 80-94 [facility] Comment on above: Performed By: #### L 500.2500, L100.0100, L501.4020 #### [facility] [address] [place], [address] Monocytes/100 WBC (Bld) 8.6 % Normal 0-10 [facility] Comment on above: Performed By: #### L 500.2500, L100.0100, L501.4020 #### [facility] [address] [place], [address] Neutrophils/100 WBC (Bld) 69.3 % Normal 47-70 [facility] Comment on above: Performed By: #### L 500.2500, L100.0100, L501.4020 #### [facility] [address] [place], [address] Nucleated RBC (Bld) [#/Vol] 0 10*3/uL Normal 0-5 [facility] Comment on above: Performed By: #### L 500.2500, L100.0100, L501.4020 #### [facility] [address] [place], [address] Platelet mean volume (Bld) [Entitic vol] 9.3 fL Normal 6.2-12.0 [facility] Comment on above: Performed By: #### L 500.2500, L100.0100, L501.4020 #### [facility] [address] [place], [address] Platelets (Bld) [#/Vol] 309 10*3/uL Normal 150-450 [facility] Comment on above: Performed By: #### L 500.2500, L100.0100, L501.4020 #### [facility] [address] [place], [address] RBC (Bld) [#/Vol] 5.20 10*6/uL Normal 4.6-6.2 [facility] Comment on above: Performed By: #### L 500.2500, L100.0100, L501.4020 #### [facility] [address] [place], [address] RDW SD 45.9 fl High 35.1-43.9 [facility] Comment on above: Performed By: #### L 500.2500, L100.0100, L501.4020 #### [facility] [address] [place], [address] WBC (Bld) [#/Vol] 10.5 10*3/uL Normal 4.4-11.0 [facility] Comment on above: Performed By: #### L 500.2500, L100.0100, L501.4020 #### [facility] [address] [place], [address] Chest 1 View (Portable)on Chest 1 View (Portable) [facility] Imaging Services [address] [place] [address] Chest 1 View (Portable) MR#: [id number] Acct: [id number] Name: WOLF TURCIOS JrFlorence Rep #: [id number] : 1960 M 64 From: Surya Labru [facility] PCP: Dr. Iker Blackwell MD Status: [facility] ER Study: Chest 1 View (Portable) Date of Exam: 05/20/24 Exam# [id number] Ordering Dr: Kunal Stone MD [id number] EXAM: XR CHEST, 1 VIEW CLINICAL INDICATION: [...] Kunal Stone MD; Dr. Iker Blackwell MD [employer]: Signed Normal [facility] Emergency Department Summary on 05-20-2024 Emergency Department Summary [facility] Medical Records Department [address] [place] [address] Emergency Department Summary 05/20/24 MR#: [id number] Acct: [id number] Name: WOLF TURCIOS Jr. Rep #: [id number] : 1960 64 From: Kunal Stone MD [...] to the point where he called EMS. 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 Normal [facility] H AND P Exam - [facility] 05-20-2024 H&P Exam - Hospitalist [facility] Medical Records Department [address] [place] [address] H P Exam - Hospitalist 05/20/242 MR#: [id number] Acct: [id number] Name: WOLF TURCIOS JrFlorence Rep #: [id number] : 1960 64 From: Noelle Fleming MD PCP: Dr. Iker Blackwell MD Status:ADM MEGAN Location: [place] [address] HPI - General General Date of Admission: [...] therapy who now Wade presents to the [facility] ED on 05/20/2024 with history of [...] discharge and notes living alone. [facility] Medical History History of substance [...] 05/18/24 Unknown Rx mg-600 mg tablet extended srqmopa44 hr (Mucus DM) nystatin 100,000 unit/mL oral [...] started at (more content not included)... Normal [facility] L501.4020on 05-20-2024 TROPONIN-I HS 6 pg/mL Normal 3.0-78.0 [facility] Comment on above: Order Comment: 'TROP ' Serial specimen #1, #2 or #3: 1 Result Comment: Elva acosta Note: New Test Units and Gender Specific Reference Ranges. For more information see Policy Stat Procedure [place] High Sensitivity Troponin (TNIH) and attachments. Performed By: #### L 500.2500, L100.0100, L501.4020 #### [facility] [address] [place], [address] Respiratory Cultureon 2023 RESPC List Antibiotics Las [...] S Tobramycin Islt RAFAELA <=1 S Normal [facility] Comment on above: Performed By: #### L 503.6620 #### [facility] [address] [place], [address] Troponin IOrdered By: Iza Stone on 05-20-2024 Troponin I High Sensitivity 6 pg/mL 3.0-78.0 [facility] Comment on above: Please Note: New Melvin t Units and Gender Specific Reference Ranges. For more information see Policy Stat Procedure [place] High Sensitivity Troponin (TNIH) and attachments. Basic Metabolic Profile (BMP )on 05-18-2024 BUN/CRE 14.3 RATIO Normal - [facility] Comment on above: Performed By: #### L 500.2500, L100.0100, L501.4020 #### [facility] [address] [place], [address] CA,Total 9.2 mg/dL Normal 8.5-10.1 [facility] Comment on above: Performed By: #### L 500.2500, L100.0100, L501.4020 #### [facility] [address] [place], [address] Chloride [Moles/Vol] 104 mmol/L Normal 98-107 [facility] Comment on above: Performed By: #### L 500.2500, L100.0100, L501.4020 #### [facility] [address] [place], [address] CO2 [Moles/Vol] 29.0 mmol/L Normal 21.0-32.0 [facility] Comment on above: Performed By: #### L 500.2500, L100.0100, L501.4020 #### [facility] [address] [place], [address] Creatinine [Mass/Vol] 0.98 mg/dL Normal 0.70-1.30 [facility] Comment on above: Result Comment: The validity of the calculated GFR GFRAA in patients over 70 years has not been determined. Clinical correlation is essential. Performed By: #### L 500.2500, L100.0100, L501.4020 #### [facility] [address] [place], [address] ECRCL 73.67 ml/min Normal [facility] Comment on above: Performed By: #### L 500.2500, L100.0100, L501.4020 #### [facility] [address] [place], [address] EST GFR - AA 99 mL/min Normal >60 [facility] Comment on above: Result Comment: Afri can [place] GFR Calc Performed By: #### L 500.2500, L100.0100, L501.4020 #### [facility] [address] [place], [address] GAP 6 Normal 5-15 [facility] Comment on above: Performed By: #### L 500.2500, L100.0100, L501.4020 #### [facility] [address] [place], [address] GFR/1.73 sq M.predicted among non-blacks MDRD (S/P/Bld) [Vol rate/Area] 82 mL/min/{1.73_m2} Normal >60 [facility] Comment on above: Result Comment: Non- GFR Calc Performed By: #### L 500.2500, L100.0100, L501.4020 #### [facility] [address] [place], [address] Glucose [Mass/Vol] 258 mg/dL High 74-106 [facility] Comment on above: Result Comment: Gluc ose result greater than or equal to 200 mg/dL suggests DIABETES MELLITUS per A.D.A. criteria. Performed By: #### L 500.2500, L100.0100, L501.4020 #### [facility] [address] [place], [address] Potassium [Moles/Vol] 3.8 mmol/L Normal 3.5-5.1 [facility] Comment on above: Performed By: #### L 500.2500, L100.0100, L501.4020 #### [facility] [address] [place], [address] Sodium [Moles/Vol] 139 mmol/L Normal 136-145 [facility] Comment on above: Performed By: #### L 500.2500, L100.0100, L501.4020 #### [facility] [address] [place], [address] Urea nitrogen [Mass/Vol] 14 mg/dL Normal 7-18 [facility] Comment on above: Performed By: #### L 500.2500, L100.0100, L501.4020 #### [facility] [address] [place], [address] Blood urea nitrogen (BUN)/cr eatinine ratioOrdered By: Nicolas Hall on 05-18-2024 Urea nitrogen/Creatinine [Mass ratio] 14.3 mg/mg 10- [facility] CBC-Complete Blood Cnt No Di ffon 05-18-2024 Erythrocyte distribution width (RBC) [Ratio] 12.6 % Normal 11.6-14.6 [facility] Comment on above: Performed By: #### L 500.2500, L100.0100, L501.4020 #### [facility] [address] [place], [address] Hematocrit (Bld) [Volume fraction] 46.1 % Normal 40-54 [facility] Comment on above: Performed By: #### L 500.2500, L100.0100, L501.4020 #### [facility] [address] [place], [address] Hemoglobin (Bld) [Mass/Vol] 14.8 g/dL Normal 13.0-16.5 [facility] Comment on above: Performed By: #### L 500.2500, L100.0100, L501.4020 #### [facility] [address] [place], [address] MCH (RBC) [Entitic mass] 30.5 pg Normal 27.0-32.0 [facility] Comment on above: Performed By: #### L 500.2500, L100.0100, L501.4020 #### [facility] [address] [place], [address] MCHC (RBC) [Mass/Vol] 32.1 g/dL Normal 32-36 [facility] Comment on above: Performed By: #### L 500.2500, L100.0100, L501.4020 #### [facility] [address] [place], [address] MCV (RBC) [Entitic vol] 94.9 fL High 80-94 [facility] Comment on above: Performed By: #### L 500.2500, L100.0100, L501.4020 #### [facility] [address] [place], [address] Platelet mean volume (Bld) [Entitic vol] 9.5 fL Normal 6.2-12.0 [facility] Comment on above: Performed By: #### L 500.2500, L100.0100, L501.4020 #### [facility] [address] [place], [address] Platelets (Bld) [#/Vol] 271 10*3/uL Normal 150-450 [facility] Comment on above: Performed By: #### L 500.2500, L100.0100, L501.4020 #### [facility] [address] [place], [address] RBC (Bld) [#/Vol] 4.86 10*6/uL Normal 4.6-6.2 [facility] Comment on above: Performed By: #### L 500.2500, L100.0100, L501.4020 #### [facility] [address] [place], [address] RDW SD 44.6 fl High 35.1-43.9 [facility] Comment on above: Performed By: #### L 500.2500, L100.0100, L501.4020 #### [facility] [address] [place], [address] WBC (Bld) [#/Vol] 9.5 10*3/uL Normal 4.4-11.0 [facility] Comment on above: Performed By: #### L 500.2500, L100.0100, L501.4020 #### [facility] [address] [place], [address] Carbon dioxide measurementOr dered By: Nicolas Hall on 05-18-2024 CO2 [Moles/Vol] 29.0 mmol/L 21.0-32.0 [facility] Chloride measurementOrdered By: Nicolas Hall on 05-18-2024 Chloride [Moles/Vol] 104 mmol/L 98-107 [facility] Erythrocyte distribution wid th ratioOrdered By: Nicolas Hall on 05-18-2024 Erythrocyte distribution width (RBC) [Ratio] 12.6 % 11.6-14.6 [facility] Erythrocyte distribution wid th standard deviationOrdered By: Nicolas Hall on 05-18-2024 Erythrocyte distribution width (RBC) [Entitic vol] 44.6 fL High 35.1-43.9 [facility] Estimated glomerular filtrat ion rate (GFR) AmericanOrdered By: Nicolas Hall on 05-18-2024 Estimated GFR (MDRD) Amer 99 mL/min >60 [facility] Comment on above: GFR Calc Estimation of creatinine kehinde aranceOrdered By: Nicolas Hall on 05-18-2024 Estimated Creatinine Clearance Calc 73.67 ml/min [facility] Glomerular filtration rate ( GFR) estimationOrdered By: Nicolas Hall on 05-18-2024 Estimated GFR (MDRD) Non-Af Amer 82 mL/min >60 [facility] Comment on above: Non- GFR Calc Glucose measurementOrdered B y: Nicolas Hall on 05-18-2024 Glucose [Mass/Vol] 258 mg/dL High 74-106 [facility] Comment on above: Glucose result great er than or equal to 200 mg/dLsuggests DIABETES MELLITUS per A.D.A. criteria. Gram Stainon 05-18-2024 GS List Antibiotics Las t 48 Hours? none List Antibiotics to be Started? none Acceptable Specimen? Yes (<25 Epithelial cells per/lpf) Gram Stain 2+ White Blood Cells Rare Gram negative rods No Epithelial cells Normal [facility] Comment on above: Performed By: #### L 503.6626 #### [facility] [address] [place], [address] Hematocrit Auto (Bld) [Volum e fraction]Ordered By: Nicolas Hall on 05-18-2024 Hematocrit (Bld) [Volume fraction] 46.1 % 40-54 [facility] Hemoglobin measurementOrdere d By: Nicolas Hall on 05-18-2024 Hemoglobin (Bld) [Mass/Vol] 14.8 g/dL 13.0-16.5 [facility] MCV (mean corpuscular volume ) determinationOrdered By: Nicolas Hall on 05-18-2024 MCV (RBC) [Entitic vol] 94.9 fL High 80-94 [facility] Mean corpuscular hemoglobin (MCH) determinationOrdered By: Nicolas Hall on 05-18-2024 MCH (RBC) [Entitic mass] 30.5 pg 27.0-32.0 [facility] Mean corpuscular hemoglobin concentration (MCHC) determinationOrdered By: Nicolas Hall on 05-18-2024 MCHC (RBC) [Mass/Vol] 32.1 g/dL 32-36 [facility] Mean platelet volume determi nationOrdered By: Nicolas Hall on 05-18-2024 Platelet mean volume (Bld) [Entitic vol] 9.5 fL 6.2-12.0 [facility] Platelet countOrdered By: Jamaal Hall on 05-18-2024 Platelets (Bld) [#/Vol] 271 10*3/uL 150-450 [facility] Potassium measurementOrdered By: Nicolas Hall on 05-18-2024 Potassium [Moles/Vol] 3.8 mmol/L 3.5-5.1 [facility] RBC Auto (Bld) [#/Vol]Ordere d By: Nicolas Hall on 05-18-2024 RBC (Bld) [#/Vol] 4.86 10*6/uL 4.6-6.2 [facility] Serum anion gap measurementO rdered By: Nicolas Hall on 05-18-2024 Anion gap [Moles/Vol] 6 mmol/L 5-15 [facility] Serum or plasma calcium margie urement (mass/volume)Ordered By: Nicolas Hall on 05-18-2024 Calcium [Mass/Vol] 9.2 mg/dL 8.5-10.1 [facility] Serum or plasma creatinine m easurement (mass/volume)Ordered By: Nicolas Hall on 05-18-2024 Creatinine [Mass/Vol] 0.98 mg/dL 0.70-1.30 [facility] Comment on above: The validity of the calculated GFR & GFRAA in patients over 70 years has not been determined. Clinical correlation is essential. Serum or plasma urea nitroge n measurement (mass/volume)Ordered By: Nicolas Hall on 05-18-2024 Urea nitrogen [Mass/Vol] 14 mg/dL 7-18 [facility] Sodium levelOrdered By: Angel Hall on 05-18-2024 Sodium [Moles/Vol] 139 mmol/L 136-145 [facility] White blood cell (WBC) count Ordered By: Nicolas Hall on 05-18-2024 WBC (Bld) [#/Vol] 9.5 10*3/uL 4.4-11.0 [facility] 12 Lead EKGon 05-17-2024 12 Lead EKG [facility] Cardiovascular Services [address] [place] [address] 12 Lead EKG 05/17/24 1534 MR#: [id number] Acct: [id number] Name: WOLF TURCIOS Jr. Rep #: [id number] : 1960 64 From: Rohit Hyman MD Attending Dr: Dr. Elijah Guerrero DO Status: ADM IN Ordering Dr: Dior Candelaria DO Date: 05/17/24 Location: [facility] Sex: M C Admitted: 05/17/24 Test Reason [...] Abnormal ECG Confirmed by ROHIT HYMAN MD ([id number]), non linear editor HAMILTON JUAREZ ([id number]) on 05/18/2024 11:40:35 AM Referred By: Confirmed By: ROHIT HYMAN MD 05/18/24 1140 Date Rohit Hyman MD CC: Dr. Iker Blackwell MD; Dr. Elijah Guerrero DO; Dr. Dior Candelaria DO Signed Normal [facility] Absolute neutrophil countOrd ered By: Dior Candelaria on 05-17-2024 Neutrophils (Bld) [#/Vol] 5.9 10*3/uL 2.0-7.7 [facility] Basic Metabolic Profile (BMP )on 05-17-2024 BUN/CRE 11.3 RATIO Normal -20 [facility] Comment on above: Order Comment: 'TROP ' Serial specimen #1, #2 or #3: 1 Performed By: #### L 500.2500, L100.0100, L501.4020 #### [facility] [address] [place], [address] CA,Total 9.2 mg/dL Normal 8.5-10.1 [facility] Comment on above: Order Comment: 'TROP ' Serial specimen #1, #2 or #3: 1 Performed By: #### L 500.2500, L100.0100, L501.4020 #### [facility] [address] [place], [address] Chloride [Moles/Vol] 105 mmol/L Normal 98-107 [facility] Comment on above: Order Comment: 'TROP ' Serial specimen #1, #2 or #3: 1 Performed By: #### L 500.2500, L100.0100, L501.4020 #### [facility] [address] [place], [address] CO2 [Moles/Vol] 31.0 mmol/L Normal 21.0-32.0 [facility] Comment on above: Order Comment: 'TROP ' Serial specimen #1, #2 or #3: 1 Performed By: #### L 500.2500, L100.0100, L501.4020 #### [facility] [address] [place], [address] Creatinine [Mass/Vol] 0.71 mg/dL Normal 0.70-1.30 [facility] Comment on above: Order Comment: 'TROP ' Serial specimen #1, #2 or #3: 1 Result Comment: The validity of the calculated GFR GFRAA in patients over 70 years has not been determined. Clinical correlation is essential. Performed By: #### L 500.2500, L100.0100, L501.4020 #### [facility] [address] [place], [address] ECRCL 107.34 ml/min Normal [facility] Comment on above: Order Comment: 'TROP ' Serial specimen #1, #2 or #3: 1 Performed By: #### L 500.2500, L100.0100, L501.4020 #### [facility] [address] [place], [address] EST GFR - AA 143 mL/min Normal >60 [facility] Comment on above: Order Comment: 'TROP ' Serial specimen #1, #2 or #3: 1 Result Comment: Afri can [place] GFR Calc Performed By: #### L 500.2500, L100.0100, L501.4020 #### [facility] [address] [place], [address] GAP 4 Low 5-15 [facility] Comment on above: Order Comment: 'TROP ' Serial specimen #1, #2 or #3: 1 Performed By: #### L 500.2500, L100.0100, L501.4020 #### [facility] [address] [place], [address] GFR/1.73 sq M.predicted among non-blacks MDRD (S/P/Bld) [Vol rate/Area] 119 mL/min/{1.73_m2} Normal >60 [facility] Comment on above: Order Comment: 'TROP ' Serial specimen #1, #2 or #3: 1 Result Comment: Non- GFR Calc Performed By: #### L 500.2500, L100.0100, L501.4020 #### [facility] [address] [place], [address] Glucose [Mass/Vol] 95 mg/dL Normal 74-106 [facility] Comment on above: Order Comment: 'TROP ' Serial specimen #1, #2 or #3: 1 Performed By: #### L 500.2500, L100.0100, L501.4020 #### [facility] [address] [place], [address] Potassium [Moles/Vol] 3.9 mmol/L Normal 3.5-5.1 [facility] Comment on above: Order Comment: 'TROP ' Serial specimen #1, #2 or #3: 1 Performed By: #### L 500.2500, L100.0100, L501.4020 #### [facility] [address] [place], [address] Sodium [Moles/Vol] 140 mmol/L Normal 136-145 [facility] Comment on above: Order Comment: 'TROP ' Serial specimen #1, #2 or #3: 1 Performed By: #### L 500.2500, L100.0100, L501.4020 #### [facility] [address] [place], [address] Urea nitrogen [Mass/Vol] 8 mg/dL Normal 7-18 [facility] Comment on above: Order Comment: 'TROP ' Serial specimen #1, #2 or #3: 1 Performed By: #### L 500.2500, L100.0100, L501.4020 #### [facility] [address] [place], [address] Basophil percentageOrdered B y: Remus Ungur on 05-17-2024 Basophils/100 WBC (Bld) 1.0 % 0-1 [facility] Blood cultureOrdered By: Rem us Ungur on 05-17-2024 Bacteria identified Cx Nom (Bld) No growth in 5 days. [facility] CBC W/Diff, Automatedon 12-1 0-4 Absolute Lymph 1.77 X10 3/uL Normal 0.83-4.51 [facility] Comment on above: Performed By: #### L 500.2500, L100.0100, L501.4020 #### [facility] [address] [place], [address] Absolute Neut 5.9 X10 3/uL Normal 2.0-7.7 [facility] Comment on above: Performed By: #### L 500.2500, L100.0100, L501.4020 #### [facility] [address] [place], [address] Basophils/100 WBC (Bld) 1.0 % Normal 0-1 [facility] Comment on above: Performed By: #### L 500.2500, L100.0100, L501.4020 #### [facility] [address] [place], [address] Eosinophils/100 WBC (Bld) 5.5 % High 0-5 [facility] Comment on above: Performed By: #### L 500.2500, L100.0100, L501.4020 #### [facility] [address] [place], [address] Erythrocyte distribution width (RBC) [Ratio] 12.6 % Normal 11.6-14.6 [facility] Comment on above: Performed By: #### L 500.2500, L100.0100, L501.4020 #### [facility] [address] [place], [address] Hematocrit (Bld) [Volume fraction] 49.6 % Normal 40-54 [facility] Comment on above: Performed By: #### L 500.2500, L100.0100, L501.4020 #### [facility] [address] [place], [address] Hemoglobin (Bld) [Mass/Vol] 15.5 g/dL Normal 13.0-16.5 [facility] Comment on above: Performed By: #### L 500.2500, L100.0100, L501.4020 #### [facility] [address] [place], [address] IG% 0.200 Normal 0.0-0.9 [facility] Comment on above: Result Comment: IG% - Immature Granulocytes (promyelocytes, myelocytes and metamyelocytes) > 1% indicates that a LEFT SHIFT is Present. Performed By: #### L 500.2500, L100.0100, L501.4020 #### [facility] [address] [place], [address] Lymphocytes/100 WBC (Bld) 19.6 % Normal 19-41 [facility] Comment on above: Performed By: #### L 500.2500, L100.0100, L501.4020 #### [facility] [address] [place], [address] MCH (RBC) [Entitic mass] 30.1 pg Normal 27.0-32.0 [facility] Comment on above: Performed By: #### L 500.2500, L100.0100, L501.4020 #### [facility] [address] [place], [address] MCHC (RBC) [Mass/Vol] 31.3 g/dL Low 32-36 [facility] Comment on above: Performed By: #### L 500.2500, L100.0100, L501.4020 #### [facility] [address] [place], [address] MCV (RBC) [Entitic vol] 96.3 fL High 80-94 [facility] Comment on above: Performed By: #### L 500.2500, L100.0100, L501.4020 #### [facility] [address] [place], [address] Monocytes/100 WBC (Bld) 8.1 % Normal 0-10 [facility] Comment on above: Performed By: #### L 500.2500, L100.0100, L501.4020 #### [facility] [address] [place], [address] Neutrophils/100 WBC (Bld) 65.6 % Normal 47-70 [facility] Comment on above: Performed By: #### L 500.2500, L100.0100, L501.4020 #### [facility] [address] [place], [address] Nucleated RBC (Bld) [#/Vol] 0 10*3/uL Normal 0-5 [facility] Comment on above: Performed By: #### L 500.2500, L100.0100, L501.4020 #### [facility] [address] [place], [address] Platelet mean volume (Bld) [Entitic vol] 9.4 fL Normal 6.2-12.0 [facility] Comment on above: Performed By: #### L 500.2500, L100.0100, L501.4020 #### [facility] [address] [place], [address] Platelets (Bld) [#/Vol] 280 10*3/uL Normal 150-450 [facility] Comment on above: Performed By: #### L 500.2500, L100.0100, L501.4020 #### [facility] [address] [place], [address] RBC (Bld) [#/Vol] 5.15 10*6/uL Normal 4.6-6.2 [facility] Comment on above: Performed By: #### L 500.2500, L100.0100, L501.4020 #### [facility] [address] [place], [address] RDW SD 45.3 fl High 35.1-43.9 [facility] Comment on above: Performed By: #### L 500.2500, L100.0100, L501.4020 #### [facility] [address] [place], [address] WBC (Bld) [#/Vol] 9.0 10*3/uL Normal 4.4-11.0 [facility] Comment on above: Performed By: #### L 500.2500, L100.0100, L501.4020 #### [facility] [address] [place], [address] Chest 1 View (Portable)on Chest 1 View (Portable) [facility] Imaging Services [address] [place] [address] Chest 1 View (Portable) MR#: [id number] Acct: [id number] Name: KAROLINAWOLF MOORE Rep #: [id number] : 1960 M 64 From: Reji Camilo MD PCP: Dr. Iker Blackwell MD Status: REG ER Study: Chest 1 View (Portable) Date of Exam: 05/17/24 Exam# [id number] Ordering Dr: Dior Candelaria DO 190:[id number] STUDY: X-RAY CHEST REASON FOR EXAM: Male, [...] Iker Blackwell MD; Dr. Dior Candelaria DO [employer]: Signed Normal [facility] Emergency Department Summary on 05-17-2024 Emergency Department Summary [facility] Medical Records Department [address] [place] [address] Emergency Department Summary 05/17/24 MR#: [id number] Acct: [id number] Name: WOLF TURCIOS Jr. Rep #: [id number] : 1960 64 From: Dior Candelaria DO PCP: Dr. Iker Blackwell MD Status:ADM IN Location: [place] [address] HPI History of Present Illness Chief Complaint: [...] DVT. Complains of chest soreness from coughing. [facility] Medical History (Updated 05/17/24 @ 17:01 by [...] clear Eyes (more content not included)... Normal [facility] Eosinophil percentageOrdered By: Dior Candelaria on 05-17-2024 Eosinophils/100 WBC (Bld) 5.5 % High 0-5 [facility] Gram stainOrdered By: Julia Nye on 05-17-2024 Microscopic observation Gram stain Nom (Unsp spec) [facility] H AND P Exam - Hospitaliston 05-17-2024 H&P Exam - Hospitalist [facility] Medical Records Department [address] [place] [address] H P Exam - Hospitalist 05/17/24 1716 MR#: [id number] Acct: [id number] Name: WOLF TURCIOS Jr. Rep #: [id number] : 1960 64 From: Nicolas [place] DO PCP: Dr. Iker Blackwell MD Status:ADM IN Location: MS3 [id number] HPI - General General Date of Admission: 05/17/24 Date of Service: 05/17/24 Chief Complaint: Worsening shortness of breath HPI Narrative WOLF TURCIOS, is a 64 M who presented to [facility] ED on 05/17/2024 with worsening shortness [...] be admitted for further management. [facility] Medical History (Updated 05/17/24 @ [...] F T (more content not included)... Normal [facility] Immature granulocytes/100 WB C Auto (Bld)Ordered By: Dior Candelaria on 05-17-2024 Immature granulocytes/100 WBC (Bld) 0.200 % 0.0-0.9 [facility] Comment on above: IG% - Immature Granu locytes (promyelocytes, myelocytes and metamyelocytes) > 1% indicates that a LEFT SHIFT is Present. Influenza virus A and B and SARS-CoV-2 (COVID-19) and Respiratory syncytial virus RNAOrdered By: Dior Candelaria on 05-17-2024 SARS-CoV-2 (COVID-19) RNA MOMO+probe Ql (Unsp spec) [facility] L501.4020on 05-17-2024 TROPONIN-I HS 8 pg/mL Normal 3.0-78.0 [facility] Comment on above: Order Comment: 'TROP ' Serial specimen #1, #2 or #3: 1 Result Comment: Plea se Note: New Test Units and Gender Specific Reference Ranges. For more information see Policy Stat Procedure [place] High Sensitivity Troponin (TNIH) and attachments. Performed By: #### L 500.2500, L100.0100, L501.4020 ####[facility] [id number] [facility] [place], [address] Lymphocytes Auto (Unsp spec) [#/Vol]Ordered By: Dior Candelaria on 05-17-2024 Lymphocytes (Bld) [#/Vol] 1.77 10*3/uL 0.83-4.51 [facility] Lymphocytes/100 WBC Auto (Un sp spec)Ordered By: Dior Candelaria on 05-17-2024 Lymphocytes/100 WBC (Bld) 19.6 % 19-41 [facility] M100.678on 05-17-2024 M100.678 Pending SARS-CoV-2 (COVID 19) Negative INFLUENZA A Negative INFLUENZA B Negative RSV PCR Negative Normal [facility] Comment on above: Performed By: #### L 3110.0500 #### [facility] [address] [place], [place], [address] Microorganism identified Cx Nom (Unsp spec)Ordered By: Nicolas [place] on 05-17-2024 Respiratory Culture Pseudomonas aeruginosa Abnormal [facility] Monocyte percentageOrdered B y: Remus Ungur on 05-17-2024 Monocytes/100 WBC (Bld) 8.1 % 0-10 [facility] Neutrophil percentageOrdered By: Remus Ungur on 05-17-2024 Neutrophils/100 WBC (Bld) 65.6 % 47-70 [facility] Nucleated red blood cell per centageOrdered By: Remus Ungur on 05-17-2024 Nucleated RBC/100 WBC (Bld) [Ratio] 0 % 0-5 [facility] Procalcitoninon 05-17-2024 Procalcitonin 0.04 ng/mL Normal 0.00-0.09 [facility] Comment on above: Result Comment: A [...] By: #### L 500.2500, L100.0100, L501.4020 #### [facility] [address] [place], [place], [address] Procalcitonin [Mass/Vol]Orde red By: Nicolas [place] on 05-17-2024 Procalcitonin 0.04 ng/mL 0.00-0.09 [facility] Comment on above: A procalcitonin (PCT [...] Troponin I High Sensitivity 8 pg/mL 3.0-78.0 [facility] Comment on above: Please Note: New Melvin t Units and Gender Specific Reference Ranges. For more information see Policy Stat Procedure [place] High Sensitivity Troponin (TNIH) and attachments. BASIC METABOLIC PANELon 05-2 Anion gap [Moles/Vol] 15 mmol/L Normal 10-20 [facility] Comment on above: Order Comment: [facility] has implemented the eGFR calculation approach that does not have a coefficient for race that conforms to the NKF-ASN Task Force Recommendations. Performed By: #### 4 [id number] #### [facility] [address] [place], [place] [address] Manjit Sen, Ph.d. [id number] Calcium [Mass/Vol] 8.6 mg/dL Normal 8.4-10.2 [facility] Comment on above: Order Comment: [facility] has implemented the eGFR calculation approach that does not have a coefficient for race that conforms to the NKF-ASN Task Force Recommendations. Performed By: #### 4 5715 #### [facility] [address] [place], [place] [address] Manjit Sen, Ph.d. [id number] Chloride [Moles/Vol] 99 mmol/L Normal 98-108 [facility] Comment on above: Order Comment: [facility] has implemented the eGFR calculation approach that does not have a coefficient for race that conforms to the NKF-ASN Task Force Recommendations. Performed By: #### 4 6124 #### [facility] [address] [place], [place] [address] Manjit Sen, Ph.d. [id number] Creatinine [Mass/Vol] 0.65 mg/dL Low 0.80-1.30 [facility] Comment on above: Order Comment: [facility] has implemented the eGFR calculation approach that does not have a coefficient for race that conforms to the NKF-ASN Task Force Recommendations. Performed By: #### 4 6124 #### [facility] [address] [place], [place] [address] Manjit Sen, Ph.d. [phone] EGFR 106 mL/min/1.73 m2 Normal >=60 [facility] Comment on above: Order Comment: [facility] has implemented the eGFR calculation approach that does not have a coefficient for race that conforms to the NKF-ASN Task Force Recommendations. Result Comment: Clarissa mated GFR was calculated using the 2020 CKD-EPI creatinine equation. Performed By: #### 4 6163 #### [facility] [address] [place], [place] [address] Manjit Sen, Ph.d. [id number] Glucose [Mass/Vol] 188 mg/dL High 65-99 [facility] Comment on above: Order Comment: [facility] has implemented the eGFR calculation approach that does not have a coefficient for race that conforms to the NKF-ASN Task Force Recommendations. Performed By: #### 4 6153 #### [facility] [address] [place], [place] [address] Manjit Sen, Ph.d. [id number] HCO3 (Bld) [Moles/Vol] 29 mmol/L Normal 21-32 [facility] Comment on above: Order Comment: [facility] has implemented the eGFR calculation approach that does not have a coefficient for race that conforms to the NKF-ASN Task Force Recommendations. Performed By: #### 4 6124 #### [facility] [address] [facility] [place], [place] [address] Manjit Sen, Ph.d. [id number] Potassium [Moles/Vol] 4.4 mmol/L Normal 3.5-5.1 [facility] Comment on above: Order Comment: [facility] has implemented the eGFR calculation approach that does not have a coefficient for race that conforms to the NKF-ASN Task Force Recommendations. Performed By: #### 4 6124 #### [facility] [address] [place] [address] Manjit Sen, Ph.d. [id number] Sodium [Moles/Vol] 139 mmol/L Normal 135-145 [facility] Comment on above: Order Comment: [facility] has implemented the eGFR calculation approach that does not have a coefficient for race that conforms to the NKF-ASN Task Force Recommendations. Performed By: #### 4 6124 #### [facility] [address] [place] [address] Manjit Sen, Ph.d. [id number] Urea nitrogen [Mass/Vol] 9 mg/dL Normal 8-25 [facility] Comment on above: Order Comment: [facility] has implemented the eGFR calculation approach that does not have a coefficient for race that conforms to the NKF-ASN Task Force Recommendations. Performed By: #### 4 6124 #### [facility] [address] [place], [place] [address] Manjit Sen, Ph.d. [phone] Urea nitrogen/Creatinine [Mass ratio] 13.8 mg/mg Normal 10.0-20.0 [facility] Comment on above: Order Comment: [facility] has implemented the eGFR calculation approach that does not have a coefficient for race that conforms to the NKF-ASN Task Force Recommendations. Performed By: #### 4 6136 #### [facility] [address] [place], [place] [address] Manjit Sen, Ph.d. [id number] CBC WITH AUTO DIFFERENTIALon 10-31-2023 AUTO NRBC 0.0 % Normal [facility] Comment on above: Performed By: #### L [id number] #### [facility] [address] [place] [address] Manjit Sen, Ph.d. [id number] AUTO NRBC ABS COUNT 0.00 K/mcL Normal 0.00-0.00 [facility] Comment on above: Performed By: #### L [id number] #### [facility] [address] [place] [address] Manjit Sen, Ph.d. [id number] BASOPHILS ABSOLUTE COUNT 0.01 K/mcL Normal 0.00-0.30 [facility] Comment on above: Performed By: #### L [id number] #### [facility] [address] [place], [place] [address] Manjit Sen, Ph.d. [id number] Basophils/100 WBC (Bld) 0.1 % Normal [facility] Comment on above: Performed By: #### L [id number] #### [facility] [address] [place] [address] Manjit Sen, Ph.d. [id number] Eosinophils (Bld) [#/Vol] 0.00 10*3/uL Normal 0.00-0.50 [facility] Comment on above: Performed By: #### L [id number] #### [facility] [address] [place], [place] [address] Manjit Sen, Ph.d. [phone] Eosinophils/100 WBC (Bld) 0.0 % Normal [facility] Comment on above: Performed By: #### L [id number] #### [facility] [address] [place], [place] [address] Manjit Sen, Ph.d. [id number] Erythrocyte distribution width (RBC) [Ratio] 13.5 % Normal 11.6-14.8 [facility] Comment on above: Performed By: #### L [id number] #### [facility] [place] [address] Manjit Sen, Ph.d. [phone] Hematocrit (Bld) [Volume fraction] 46.7 % Normal 41.0-53.0 [facility] Comment on above: Performed By: #### L [id number] #### [facility] [address] [place] [address] [facility], Ph.d. [id number] Hemoglobin (Bld) [Mass/Vol] 14.7 g/dL Normal 13.5-17.5 [facility] Comment on above: Performed By: #### L [id number] #### [facility] [address] [place] [address] [facility], Ph.d. [id number] IG ABSOLUTE 0.06 K/mcL Normal 0.00-0.30 [facility] Comment on above: Performed By: #### L [id number] #### [facility] [address] [place] [address] [facility], Ph.d. [id number] IG PERCENT 0.70 % Normal [facility] Comment on above: Result Comment: The IG parameter is the percentage of metamyelocytes, myelocytes and promyelocytes. An immature granulocyte count (IG) of 1% or more suggests the possibility of infection, an IG count of 3% is very likely related to an infection. Performed By: #### L [id number] #### [facility] [address] [place] [address] [facility], Ph.d. [id number] Lymphocytes (Bld) [#/Vol] 0.61 10*3/uL Low 0.90-4.00 [facility] Comment on above: Performed By: #### L [id number] #### [facility] [address] [place] [address] [facility], Ph.d. [id number] Lymphocytes/100 WBC (Bld) 6.9 % Normal [facility] Comment on above: Performed By: #### L [id number] #### [facility] [address] [place], [place] [address] Manjit Sen, Ph.d. [id number] MCH (RBC) [Entitic mass] 30.5 pg Normal 26.0-34.0 [facility] Comment on above: Performed By: #### L [id number] #### [facility] [address] [place], [place] [address] Manjit Sen, Ph.d. [id number] MCV (RBC) [Entitic vol] 96.9 fL Normal 80.0-100.0 [facility] Comment on above: Performed By: #### L [id number] #### [facility] [address] [place] [id number] Manjit Sen, Ph.d. [id number] MEAN CORPUSCULAR HEMOGLOBIN CONC 31.5 g/dL Normal 31.0-37.0 [facility] Comment on above: Performed By: #### L [id number] #### [facility] [address] [place], [place] [address] Manjit Sen, Ph.d. [id number] Monocytes (Bld) [#/Vol] 0.25 10*3/uL Low 0.30-0.90 [facility] Comment on above: Performed By: #### L [id number] #### [facility] [address] [place], [place] [address] Manjit Sen, Ph.d. [id number] Monocytes/100 WBC (Bld) 2.8 % Normal [facility] Comment on above: Performed By: #### L [id number] #### [facility] [address] [place] [id number] Manjit Sen, Ph.d. [id number] NEUTROPHILS ABSOLUTE COUNT 7.87 K/mcL High 1.70-7.00 [facility] Comment on above: Performed By: #### L [id number] #### [facility] [address] [place] [address] Manjit Sen, Ph.d. [id number] Neutrophils/100 WBC (Bld) 89.5 % Normal [facility] Comment on above: Performed By: #### L [id number] #### [facility] [address] [place], [place] [address] Manjit Sen, Ph.d. [id number] Platelet mean volume (Bld) [Entitic vol] 9.4 fL Normal 9.4-12.4 [facility] Comment on above: Performed By: #### L [id number] #### [facility] [address] [place] [id number] Manjit Sen, Ph.d. [id number] Platelets (Bld) [#/Vol] 254 10*3/uL Normal 150-400 [facility] Comment on above: Performed By: #### L [id number] #### [facility] [address] [place] [address] Manjit Sen, Ph.d. [id number] RBC (Bld) [#/Vol] 4.82 10*6/uL Normal 4.50-5.90 [facility] Comment on above: Performed By: #### L [id number] #### [facility] [address] [place], [place] [address] Manjit Sen, Ph.d. [id number] WBC (Bld) [#/Vol] 8.80 10*3/uL Normal 4.50-11.00 [facility] Comment on above: Performed By: #### L [id number] #### [facility] [address] [place], [place] [address] Manjit Sen, Ph.d. [id number] CBC,PLATELETSon 10-31-2023 Erythrocyte distribution width (RBC) [Ratio] 13.5 % 10.9 - 14.3 % [facility] Hematocrit (Bld) [Volume fraction] 42.9 % 39.6 - 48.8 % [facility] Hemoglobin (Bld) [Mass/Vol] 13.6 g/dL 13.4 - 16.8 g/dL [facility] Interpretation and review of laboratory results Abnormal [facility] MCH (RBC) [Entitic mass] 30.4 pg 26.1 - 33.3 pg [facility] MCHC (RBC) [Mass/Vol] 31.7 g/dL Low 31.9 - 36.5 g/dL [facility] MCV (RBC) [Entitic vol] 96.0 fL High 79.0 - 94.5 fL [facility] Platelet mean volume (Bld) [Entitic vol] 9.6 fL 8.7 - 12.3 fL [facility] Platelets (Bld) [#/Vol] 233 10*3/uL 146 - 337 K/uL [facility] RBC (Bld) [#/Vol] 4.47 10*6/uL [facility] WBC (Bld) [#/Vol] 9.08 10*3/uL 3.73 - 10. 10 K/uL [facility] Hematocrit (Bld) [Volume fraction] 42.9 % Normal 39.6-48.8 [facility] Comment on above: Performed By: #### [facility] #### [facility] (DEFAULT) [address] [address] Hemoglobin (Bld) [Mass/Vol] 13.6 g/dL Normal 13.4-16.8 [facility] Comment on above: Performed By: #### H [facility] #### [facility] (DEFAULT) [address] [place] [address] MCV (RBC) [Entitic vol] 96.0 fL High 79.0-94.5 [facility] Comment on above: Performed By: #### H EMO #### [facility] (DEFAULT) [address] [place] [address] Mean Cell Hgb 30.4 pg Normal 26.1-33.3 [facility] Comment on above: Performed By: #### H EMO #### [facility] (DEFAULT) [address] [place] [address] Mean Cell Hgb Conc 31.7 g/dL Low 31.9-36.5 [facility] Comment on above: Performed By: #### H EMO #### [facility] (DEFAULT) [address] [place] [address] Platelet mean volume (Bld) [Entitic vol] 9.6 fL Normal 8.7-12.3 [facility] Comment on above: Performed By: #### H EMOGC #### [facility] (DEFAULT) [address] [place] [address] Platelets (Bld) [#/Vol] 233 10*3/uL Normal 146-337 [facility] Comment on above: Performed By: #### H EMO #### [facility] (DEFAULT) [address] [place] [address] RBC (Bld) [#/Vol] 4.47 10*6/uL Normal 4.38-5.83 [facility] Comment on above: Performed By: #### H [facility] #### [facility] (DEFAULT) [address] [place] [address] RBC Distribution 13.5 % Normal 10.9-14.3 [facility] Comment on above: Performed By: #### H EMO #### [facility] (DEFAULT) [address] [place] [address] WBC (Bld) [#/Vol] 9.08 10*3/uL Normal 3.73-10.10 [facility] Comment on above: Performed By: #### H EMO #### [facility] (DEFAULT) [address] [place] [address] CHEM 7 (LYTES,BUN,CREA,GLUC) on 10-31-2023 Anion gap [Moles/Vol] 14 mmol/L 7 - 17 mmol/L [facility] Chloride [Moles/Vol] 99 mmol/L 98 - 10 8 mmol/L [facility] CO2 [Moles/Vol] 33 mmol/L High 21 - 31 mmol/L [facility] Creatinine [Mass/Vol] 0.71 mg/dL 0.70 - 1.30 mg/dL [facility] eGFR, CKD-EPI, Male - PINF [facility] Comment on above: Reported eGFR is bas ed on the CKD-EPI 2020 equation using creatinine, age, and sex. Glucose [Mass/Vol] 148 mg/dL High 70 - 99 mg/dL [facility] Interpretation and review of laboratory results Abnormal [facility] Osmolality Calc [Osmolality] 299 [facility] Potassium [Moles/Vol] 3.7 mmol/L 3.5 - 5.0 mmol/L [facility] Sodium [Moles/Vol] 142 mmol/L 135 - 145 mmol/L [facility] Urea nitrogen [Mass/Vol] 12 mg/dL 7 - 25 mg/dL [facility] Urea nitrogen/Creatinine [Mass ratio] 17 mg/mg [facility] Anion gap [Moles/Vol] 14 mmol/L Normal 7-17 [facility] Comment on above: Performed By: #### DAXA VALDES, IPB #### [facility] (DEFAULT) [address] [place] [address] [phone] Chloride [Moles/Vol] 99 mmol/L Normal 98-108 [facility] Comment on above: Performed By: #### DAXA VALDES, IPB #### [facility] (DEFAULT) [address] [place] [address] CO2 [Moles/Vol] 33 mmol/L High 21-[address] [facility] Comment on above: Performed By: #### DAXA VALDES, IPB #### [facility] (DEFAULT) [address] [place] [address] Creatinine [Mass/Vol] 0.71 mg/dL Normal 0.70-1.30 [facility] Comment on above: Performed By: #### DAXA VALDES, IPB #### [facility] (DEFAULT) [address] [place] [address] 46280 eGFR, CKD-EPI, Male > Normal >=60 [facility] Comment on above: Result Comment: Repo rted eGFR is based on the CKD-EPI 2020 equation using creatinine, age, and sex. Performed By: #### DAXA VALDES, IPB #### Que [facility] (DEFAULT) [address] [place] [address] 87430 Glucose [Mass/Vol] 148 mg/dL High 70-99 [facility] Comment on above: Performed By: #### DAXA VALDES, IPB #### Que [facility] (DEFAULT) [address] [place] [address] 47096 Osmolality [Osmolality] 299 mosm/kg Normal 278-305 [facility] Comment on above: Performed By: #### DAXA VALDES, IPB #### Que [facility] (DEFAULT) [address] [place] [address] 41475 Potassium [Moles/Vol] 3.7 mmol/L Normal 3.5-5.0 [facility] Comment on above: Performed By: #### DAXA VALDES, IPB #### Que [facility] (DEFAULT) [address] [place] [address] 87950 Sodium [Moles/Vol] 142 mmol/L Normal 135-145 [facility] Comment on above: Performed By: #### DAXA VALDES, IPB #### Que [facility] (DEFAULT) [address] [place] [address] 20874 Urea nitrogen [Mass/Vol] 12 mg/dL Normal 7-25 [facility] Comment on above: Performed By: #### DAXA VALDES, IPB #### Que [facility] (DEFAULT) [address] [place] [address] 04383 Urea nitrogen/Creatinine [Mass ratio] 17 mg/mg Normal [facility] Comment on above: Performed By: #### MG KEISHAO, IPB #### Que [facility] (DEFAULT) [address] [place] [address] 70859 MAGNESIUMon 10-31-2023 Magnesium [Mass/Vol] 1.8 mg/dL 1.6 - 2 .6 mg/dL [facility] Magnesium [Mass/Vol] 1.8 mg/dL Normal 1.6-2.6 [facility] Comment on above: Performed By: #### C DAXA SPEARS IPB #### [facility] (DEFAULT) [address] [place] [address] 09127 No Panel Informationon 10-30 Interpretation and review of laboratory results Normal [facility] PHOSPHATE, INORGANICon 10-30 Phosphate [Mass/Vol] 3.2 mg/dL 2.2 - 4 .6 mg/dL [facility] Phosphorous 3.2 mg/dL Normal 2.2-4.6 [facility] Comment on above: Performed By: #### C DAXA SPEARS, BHAKTIB #### [facility] (DEFAULT) [address] [place], [place] [id number] CBC,PLATELETSon 10-30-2023 Erythrocyte distribution width (RBC) [Ratio] 13.7 % 10.9 - 14.3 % [facility] Hematocrit (Bld) [Volume fraction] 42.2 % 39.6 - 48.8 % [facility] Hemoglobin (Bld) [Mass/Vol] 13.4 g/dL 13.4 - 16.8 g/dL [facility] Interpretation and review of laboratory results Abnormal [facility] MCH (RBC) [Entitic mass] 30.7 pg 26.1 - 33.3 pg [facility] MCHC (RBC) [Mass/Vol] 31.8 g/dL Low 31.9 - 36.5 g/dL [facility] MCV (RBC) [Entitic vol] 96.6 fL High 79.0 - 94.5 fL [facility] Platelet mean volume (Bld) [Entitic vol] 9.7 fL 8.7 - 12.3 fL [facility] Platelets (Bld) [#/Vol] 183 10*3/uL 146 - 337 K/uL [facility] RBC (Bld) [#/Vol] 4.37 10*6/uL Low [facility] WBC (Bld) [#/Vol] 6.36 10*3/uL 3.73 - 10. 10 K/uL [facility] Hematocrit (Bld) [Volume fraction] 42.2 % Normal 39.6-48.8 [facility] Comment on above: Performed By: #### DAXA VALDES, IPB #### [facility] (DEFAULT) [address] [place] [address] 08188 Hemoglobin (Bld) [Mass/Vol] 13.4 g/dL Normal 13.4-16.8 [facility] Comment on above: Performed By: #### DAXA VALDES, IPB #### Que [facility] (DEFAULT) [address] [place] [address] 15519 MCV (RBC) [Entitic vol] 96.6 fL High 79.0-94.5 [facility] Comment on above: Performed By: #### DAXA VALDES, IPB #### [facility] (DEFAULT) [address] [place] [address] 20433 Mean Cell Hgb 30.7 pg Normal 26.1-33.3 [facility] Comment on above: Performed By: #### Karyn SPEARS MGAdi, IPB #### [facility] (DEFAULT) [address] [place] [address] 50491 Mean Cell Hgb Conc 31.8 g/dL Low 31.9-36.5 [facility] Comment on above: Performed By: #### Karyn SPEARS MGO, IPB #### [facility] (DEFAULT) [address] [place] [address] 95372 Platelet mean volume (Bld) [Entitic vol] 9.7 fL Normal 8.7-12.3 [facility] Comment on above: Performed By: #### Karyn SPEARS MGO, IPB #### [facility] (DEFAULT) [address] [place] [address] 59121 Platelets (Bld) [#/Vol] 183 10*3/uL Normal 146-337 [facility] Comment on above: Performed By: #### C HM7, MGO, IPB #### U [facility] (DEFAULT) [address] [place] [address] 30794 RBC (Bld) [#/Vol] 4.37 10*6/uL Low 4.38-5.83 [facility] Comment on above: Performed By: #### Karyn HM7, MGO, IPB #### U [facility] (DEFAULT) [address] [place] [address] 01070 RBC Distribution 13.7 % Normal 10.9-14.3 [facility] Comment on above: Performed By: #### Karyn HM7, MGO, IPB #### Que [facility] (DEFAULT) [address] [place] [address] 68244 WBC (Bld) [#/Vol] 6.36 10*3/uL Normal 3.73-10.10 [facility] Comment on above: Performed By: #### Karyn HM7, MGO, IPB #### [facility] (DEFAULT) [address] [place] [address] 86027 CHEM 7 (LYTES,BUN,CREA,GLUC) Ordered By: Nabeel Salgado on 10-30-2023 Anion gap [Moles/Vol] 11 mmol/L 7 - 17 mmol/L [facility] Chloride [Moles/Vol] 103 mmol/L 98 - 10 8 mmol/L [facility] CO2 [Moles/Vol] 34 mmol/L High 21 - 31 mmol/L [facility] Creatinine [Mass/Vol] 0.71 mg/dL 0.70 - 1.30 mg/dL [facility] eGFR, CKD-EPI, Male - PINF [facility] Comment on above: Reported eGFR is bas ed on the CKD-EPI 2020 equation using creatinine, age, and sex. Glucose [Mass/Vol] 128 mg/dL High 70 - 99 mg/dL [facility] Interpretation and review of laboratory results Abnormal [facility] Osmolality Calc [Osmolality] 302 [facility] Potassium [Moles/Vol] 4.0 mmol/L 3.5 - 5.0 mmol/L [facility] Sodium [Moles/Vol] 144 mmol/L 135 - 145 mmol/L [facility] Urea nitrogen [Mass/Vol] 13 mg/dL 7 - 25 mg/dL [facility] Urea nitrogen/Creatinine [Mass ratio] 18 mg/mg [facility] CHEM 7 (LYTES,BUN,CREA,GLUC) on 10-30-2023 Anion gap [Moles/Vol] 11 mmol/L Normal 7-17 [facility] Comment on above: Performed By: #### DAXA VALDES, IPB #### [facility] (DEFAULT) [address] [place] [address] 69016 Chloride [Moles/Vol] 103 mmol/L Normal 98-108 [facility] Comment on above: Performed By: #### Karyn SPEARS MGO, IPB #### [facility] (DEFAULT) [address] [place] [address] 14963 CO2 [Moles/Vol] 34 mmol/L High 21-[address] [facility] Comment on above: Performed By: #### Karyn HMAda MGO, IPB #### [facility] (DEFAULT) [address] [place] [address] 21363 Creatinine [Mass/Vol] 0.71 mg/dL Normal 0.70-1.30 [facility] Comment on above: Performed By: #### Karyn SPEARS MGAdi, IPB #### [facility] (DEFAULT) [address] [place] [address] 55747 eGFR, CKD-EPI, Male > Normal >=60 [facility] Comment on above: Result Comment: Repo rted eGFR is based on the CKD-EPI 2020 equation using creatinine, age, and sex. Performed By: #### C HM7, MGO, IPB #### U [facility] (DEFAULT) [address] [place] [address] 82065 Glucose [Mass/Vol] 128 mg/dL High 70-99 [facility] Comment on above: Performed By: #### Karyn HM7, MGO, IPB #### U [facility] (DEFAULT) [address] [place] [address] 23457 Osmolality [Osmolality] 302 mosm/kg Normal 278-305 [facility] Comment on above: Performed By: #### Karyn HM7, MGO, IPB #### U [facility] (DEFAULT) [address] [place] [address] 48484 Potassium [Moles/Vol] 4.0 mmol/L Normal 3.5-5.0 [facility] Comment on above: Performed By: #### Karyn HMAda MGO, IPB #### [facility] (DEFAULT) [address] [place] [address] 37318 Sodium [Moles/Vol] 144 mmol/L Normal 135-145 [facility] Comment on above: Performed By: #### Karyn SPEARS MGO, IPB #### U [facility] (DEFAULT) [address] [place] [address] 52074 Urea nitrogen [Mass/Vol] 13 mg/dL Normal 7-25 [facility] Comment on above: Performed By: #### Karyn HMAda, MGO, IPB #### U [facility] (DEFAULT) [address] [place] [address] 01693 Urea nitrogen/Creatinine [Mass ratio] 18 mg/mg Normal [facility] Comment on above: Performed By: #### Karyn HM7, MGO, IPB #### U [facility] (DEFAULT) [address] [place] [address] 89406 MAGNESIUMon 10-30-2023 Magnesium [Mass/Vol] 2.0 mg/dL 1.6 - 2 .6 mg/dL [facility] Magnesium [Mass/Vol] 2.0 mg/dL Normal 1.6-2.6 [facility] Comment on above: Performed By: #### C REGAN, DAXA, IPB #### [facility] (DEFAULT) [address] [place] [address] 21745 No Panel Informationon 10-29 Interpretation and review of laboratory results Normal [facility] PHOSPHATE, INORGANICon 10-29 Phosphate [Mass/Vol] 2.7 mg/dL 2.2 - 4 .6 mg/dL [facility] Phosphorous 2.7 mg/dL Normal 2.2-4.6 [facility] Comment on above: Performed By: #### C REGAN, DAXA, IPB #### [facility] (DEFAULT) [address] [place] [address] 41264 VENOUS BLOOD GASon Base excess Calc (Bld) [Moles/Vol] 12.5 mmol/L High -3.0 - 3.0 mmol/L [facility] CO2 (Bld) [Partial pressure] 57 mm[Hg] High [facility] HCO3 (Bld) [Moles/Vol] 37 mmol/L High 22 - 29 mmol/L [facility] Interpretation and review of laboratory results Abnormal [facility] Oxygen (Bld) [Partial pressure] 60 mm[Hg] mm Hg [facility] Comment on above: Venous pO2 is not re commended for the evaluation of oxygen status, clinical correlation is recommended. Oxygen saturation in Blood 92 % High 70 - 80 % [facility] pH (Bld) 7.42 [pH] 7.32 - 7.43 [facility] Specimen source Nom (Unsp spec) Venous [facility] Base Excess 12.5 mmol/L High -3.0-3.0 [facility] Comment on above: Performed By: #### G ASV5 #### [facility] (DEFAULT) [address] [place] [address] 04479 HCO3 (Bld) [Moles/Vol] 37 mmol/L High 22-29 [facility] Comment on above: Performed By: #### G ASV5 #### [facility] (DEFAULT) [address] [place] [address] 84151 Oxygen saturation in Blood 92 % High 70-80 [facility] Comment on above: Performed By: #### G ASV5 #### [facility] (DEFAULT) [address] [place] [address] 61393 pCO2, Venous 57 mm Hg High 36-52 [facility] Comment on above: Performed By: #### G ASV5 #### [facility] (DEFAULT) [address] [place] [address] 68802 pH, Venous 7.42 Normal 7.32-7.43 [facility] Comment on above: Performed By: #### G ASV5 #### [facility] (DEFAULT) [address] [place] [address] 67945 pO2, Venous 60 mm Hg Normal [facility] Comment on above: Result Comment: Veno us pO2 is not recommended for the evaluation of oxygen status, clinical correlation is recommended. Performed By: #### G ASV5 #### [facility] (DEFAULT) [address] [place] [address] 63138 Specimen type Nom (Spec) Venous Normal [facility] Comment on above: Performed By: #### G ASV5 #### [facility] (DEFAULT) [address] [place] [address] 46041 B-TYPE NATRIURETIC PEPTIDE ( BRAIN)on 10-29-2023 Interpretation and review of laboratory results Normal [facility] Natriuretic peptide B (Bld) [Mass/Vol] 12 pg/mL 0 - 100 pg/mL [facility] Natriuretic peptide B (Bld) [Mass/Vol] 12 pg/mL Normal 0-100 [facility] Comment on above: Order Comment: If hi story of congestive heart failure. Performed By: #### B SCIENTIST IMMUNOLOGY #### [facility] (DEFAULT) [address] [place] [address] 57843 CBC AND ELECTRONIC DIFFon 05 -23-2024 Basophils (Bld) [#/Vol] 0.04 10*3/uL 0.00 - 0.09 K/uL [facility] Basophils/100 WBC (Bld) 0.5 % [facility] Differential cell count method Nom (Bld) Electronic Differential [facility] Eosinophils (Bld) [#/Vol] K/uL 0.00 - 0.48 K/uL [facility] Eosinophils/100 WBC (Bld) 0.2 % [facility] Erythrocyte distribution width (RBC) [Ratio] 13.6 % 10.9 - 14.3 % [facility] Hematocrit (Bld) [Volume fraction] 49.6 % High 39.6 - 48.8 % [facility] Hemoglobin (Bld) [Mass/Vol] 15.9 g/dL 13.4 - 16.8 g/dL [facility] Immature granulocytes (Bld) [#/Vol] K/uL NINF - 0.07 K/uL [facility] Immature granulocytes/100 WBC (Bld) 0.2 % [facility] Interpretation and review of laboratory results Abnormal [facility] Lymphocytes (Bld) [#/Vol] 1.00 10*3/uL 0.83 - 3.57 K/uL [facility] Lymphocytes/100 WBC (Bld) 11.5 % [facility] MCH (RBC) [Entitic mass] 30.5 pg 26.1 - 33.3 pg [facility] MCHC (RBC) [Mass/Vol] 32.1 g/dL 31.9 - 36.5 g/dL [facility] MCV (RBC) [Entitic vol] 95.0 fL High 79.0 - 94.5 fL [facility] Monocytes (Bld) [#/Vol] 0.69 10*3/uL 0.24 - 0.93 K/uL [facility] Monocytes/100 WBC (Bld) 7.9 % [facility] Neutrophils (Bld) [#/Vol] 6.91 10*3/uL High 1.57 - 6.19 K/uL [facility] Nucleated RBC/100 WBC (Bld) [Ratio] 0.0 % NINF [facility] Platelet mean volume (Bld) [Entitic vol] 9.5 fL 8.7 - 12.3 fL [facility] Platelets (Bld) [#/Vol] 195 10*3/uL 146 - 337 K/uL [facility] RBC (Bld) [#/Vol] 5.22 10*6/uL [facility] Segmented neutrophils/100 WBC (Bld) 79.7 % [facility] WBC (Bld) [#/Vol] 8.68 10*3/uL 3.73 - 10. 10 K/uL [facility] Abs Eos Auto < Normal 0.00-0.48 [facility] Comment on above: Performed By: #### L [id number] #### [facility] (DEFAULT) [address] [place] [address] 94208 Basophils (Bld) [#/Vol] 0.04 10*3/uL Normal 0.00-0.09 [facility] Comment on above: Performed By: #### L [id number] #### [facility] (DEFAULT) [address] [place] [address] 34036 Basophils/100 WBC (Bld) 0.5 % Normal [facility] Comment on above: Performed By: #### L [id number] #### [facility] (DEFAULT) [address] [place] [address] 22620 DIFF STATUS Electronic Differential Normal [facility] Comment on above: Performed By: #### L [id number] #### [facility] (DEFAULT) [address] [place] [address] 03995 Eosinophils/100 WBC (Bld) 0.2 % Normal [facility] Comment on above: Performed By: #### L [id number] #### [facility] (DEFAULT) [address] [place] [address] 50212 Hematocrit (Bld) [Volume fraction] 49.6 % High 39.6-48.8 [facility] Comment on above: Performed By: #### L [id number] #### [facility] (DEFAULT) [address] [address] Hemoglobin (Bld) [Mass/Vol] 15.9 g/dL Normal 13.4-16.8 [facility] Comment on above: Performed By: #### L [id number] #### [facility] (DEFAULT) [address] [address] Immature Grans % 0.2 % Normal [facility] Comment on above: Performed By: #### L [id number] #### [facility] (DEFAULT) [address] [address]25 Immature Grans Absolute < Normal <=0.07 [facility] Comment on above: Performed By: #### L [id number] #### [facility] (DEFAULT) [address] [address]18 Lymphocytes (Bld) [#/Vol] 1.00 10*3/uL Normal 0.83-3.57 [facility] Comment on above: Performed By: #### L [id number] #### [facility] (DEFAULT) [address] [address]79 Lymphocytes/100 WBC (Bld) 11.5 % Normal [facility] Comment on above: Performed By: #### L [id number] #### [facility] (DEFAULT) [address] [address]17 MCV (RBC) [Entitic vol] 95.0 fL High 79.0-94.5 [facility] Comment on above: Performed By: #### L [id number] #### [facility] (DEFAULT) [address] [address]86 Mean Cell Hgb 30.5 pg Normal 26.1-33.3 [facility] Comment on above: Performed By: #### L [id number] #### U [facility] (DEFAULT) [address] [place] [address] 46820 Mean Cell Hgb Conc 32.1 g/dL Normal 31.9-36.5 [facility] Comment on above: Performed By: #### L [id number] #### [facility] (DEFAULT) [address] [place] [address] 65300 Monocytes (Bld) [#/Vol] 0.69 10*3/uL Normal 0.24-0.93 [facility] Comment on above: Performed By: #### L [id number] #### [facility] (DEFAULT) [address] [place] [address] 40168 Monocytes/100 WBC (Bld) 7.9 % Normal [facility] Comment on above: Performed By: #### L [id number] #### [facility] (DEFAULT) [address] [place] [address] 62573 Nucleated RBC 0.0 /100 WBC Normal <=0.[address] [facility] Comment on above: Performed By: #### L [id number] #### [facility] (DEFAULT) [address] [place] [address] 84173 Platelet mean volume (Bld) [Entitic vol] 9.5 fL Normal 8.7-12.3 [facility] Comment on above: Performed By: #### L [id number] #### [facility] (DEFAULT) [address] [address] Platelets (Bld) [#/Vol] 195 10*3/uL Normal 146-337 [facility] Comment on above: Performed By: #### L [id number] #### [facility] (DEFAULT) [address] [address]66 RBC (Bld) [#/Vol] 5.22 10*6/uL Normal 4.38-5.83 [facility] Comment on above: Performed By: #### L [id number] #### [facility] (DEFAULT) [address] [place] [address] 07597 RBC Distribution 13.6 % Normal 10.9-14.3 [facility] Comment on above: Performed By: #### L [id number] #### [facility] (DEFAULT) [address] [place] [address] 21974 Segs + Bands Auto 79.7 % Normal [facility] Comment on above: Performed By: #### L [id number] #### [facility] (DEFAULT) [address] [place] [address] 18418 Segs + Bands,Absolute Auto 6.91 K/uL High 1.57-6.19 [facility] Comment on above: Performed By: #### L [id number] #### [facility] (DEFAULT) [address] [address] WBC (Bld) [#/Vol] 8.68 10*3/uL Normal 3.73-10.10 [facility] Comment on above: Performed By: #### L [id number] #### [facility] (DEFAULT) [address] [place] [address] 56019 [facility] 7 - EDon 10-29-2023 Anion gap [Moles/Vol] 7 mmol/L 7 - 17 mmol/L [facility] Chloride [Moles/Vol] 99 mmol/L 98 - 10 8 mmol/L [facility] CO2 [Moles/Vol] 34 mmol/L High 21 - 31 mmol/L [facility] Creatinine [Mass/Vol] 0.82 mg/dL 0.70 - 1.30 mg/dL [facility] eGFR, CKD-EPI, Male - PINF [facility] Comment on above: Reported eGFR is bas ed on the CKD-EPI 2020 equation using creatinine, age, and sex. Glucose [Mass/Vol] 106 mg/dL High 70 - 99 mg/dL [facility] Interpretation and review of laboratory results Abnormal [facility] Osmolality Calc [Osmolality] 286 [facility] Potassium [Moles/Vol] 4.2 mmol/L 3.5 - 5.0 mmol/L [facility] Sodium [Moles/Vol] 136 mmol/L 135 - 145 mmol/L [facility] Urea nitrogen [Mass/Vol] 13 mg/dL 7 - 25 mg/dL [facility] Urea nitrogen/Creatinine [Mass ratio] 16 mg/mg [facility] Anion gap [Moles/Vol] 7 mmol/L Normal 7-17 [facility] Comment on above: Performed By: #### C 7ED #### [facility] (DEFAULT) [address] [place] [address] 71045 Chloride [Moles/Vol] 99 mmol/L Normal 98-108 [facility] Comment on above: Performed By: #### C 7ED #### [facility] (DEFAULT) [address] [place] [address] 24748 CO2 [Moles/Vol] 34 mmol/L High 21-[address] [facility] Comment on above: Performed By: #### Karyn 7ED #### [facility] (DEFAULT) [address] [place] [address] 37891 Creatinine [Mass/Vol] 0.82 mg/dL Normal 0.70-1.30 [facility] Comment on above: Performed By: #### Karyn 7ED #### [facility] (DEFAULT) [address] [place] [address] 71857 eGFR, CKD-EPI, Male > Normal >=60 [facility] Comment on above: Result Comment: Repo rted eGFR is based on the CKD-EPI 2020 equation using creatinine, age, and sex. Performed By: #### C 7ED #### Que [facility] (DEFAULT) [address] [place] [address] 97611 Glucose [Mass/Vol] 106 mg/dL High 70-99 [facility] Comment on above: Performed By: #### C 7ED #### Que [facility] (DEFAULT) [address] [place] [address] 03992 Osmolality [Osmolality] 286 mosm/kg Normal 278-305 [facility] Comment on above: Performed By: #### C 7ED #### [facility] (DEFAULT) [address] [place] [address] 64145 Potassium [Moles/Vol] 4.2 mmol/L Normal 3.5-5.0 [facility] Comment on above: Performed By: #### C 7ED #### [facility] (DEFAULT) [address] [place] [address] Sodium [Moles/Vol] 136 mmol/L Normal 135-145 [facility] Comment on above: Performed By: #### C 7ED #### [facility] (DEFAULT) [address] [place] [address] 09857 Urea nitrogen [Mass/Vol] 13 mg/dL Normal 7-25 [facility] Comment on above: Performed By: #### C 7ED #### [facility] (DEFAULT) [address] [place] [address] 14645 Urea nitrogen/Creatinine [Mass ratio] 16 mg/mg Normal [facility] Comment on above: Performed By: #### C 7ED #### [facility] (DEFAULT) [address] [place] [address] 25899 HIGH SENSITIVITY TROPONIN I - SINGLE ORDERon 10-29-2023 Interpretation and review of laboratory results Normal [facility] Troponin I.cardiac High sensitivity method [Mass/Vol] 4 ng/L NINF - 53 ng/L [facility] hs-Troponin I 4 ng/L Normal <53 [facility] Comment on above: Order Comment: If hi story of coronary heart disease. Acute Coronary Syndrome (ACS): Initial Evaluation and Management: [email or web address] Performed By: #### L [id number] #### [facility] (DEFAULT) [address] [place] [address] [phone] No Panel Informationon 10-28 [facility] Portable XR Chest Viewson IMPRESSION: I suspect [...] a fibrotic process predominantly. No dense consolidation. [facility] Radiology Study observation (narrative) [facility] Portable XR Chest ViewsOrder ed By: Washington Godfrey on 10-29-2023 [facility] Work Phone: VENOUS BLOOD GASon Base excess Calc (Bld) [Moles/Vol] 13.0 mmol/L High -3.0 - 3.0 mmol/L [facility] CO2 (Bld) [Partial pressure] 61 mm[Hg] High [facility] HCO3 (Bld) [Moles/Vol] 38 mmol/L High 22 - 29 mmol/L [facility] Interpretation and review of laboratory results Abnormal [facility] Oxygen (Bld) [Partial pressure] 57 mm[Hg] mm Hg [facility] Comment on above: Venous pO2 is not re commended for the evaluation of oxygen status, clinical correlation is recommended. Oxygen saturation in Blood 87 % High 70 - 80 % [facility] pH (Bld) 7.40 [pH] 7.32 - 7.43 [facility] Specimen source Nom (Unsp spec) Venous [facility] Base Excess 13.0 mmol/L High -3.0-3.0 [facility] Comment on above: Performed By: #### Karyn HM7, MGO, IPB #### [facility] (DEFAULT) [address] [place] [address] 62842 HCO3 (Bld) [Moles/Vol] 38 mmol/L High 22-29 [facility] Comment on above: Performed By: #### Karyn HM7, MGO, IPB #### [facility] (DEFAULT) [address] [place] [address] 99761 Oxygen saturation in Blood 87 % High 70-80 [facility] Comment on above: Performed By: #### Karyn HM7, MGO, IPB #### [facility] (DEFAULT) [address] [place] [address] 18648 pCO2, Venous 61 mm Hg High 36-52 [facility] Comment on above: Performed By: #### Karyn HM7, MGO, IPB #### [facility] (DEFAULT) [address] [place] [address] 02308 pH, Venous 7.40 Normal 7.32-7.43 [facility] Comment on above: Performed By: #### Karyn HM7, MGO, IPB #### [facility] (DEFAULT) [address] [place] [address] 66259 pO2, Venous 57 mm Hg Normal [facility] Comment on above: Result Comment: Veno us pO2 is not recommended for the evaluation of oxygen status, clinical correlation is recommended. Performed By: #### Karyn HM7, MGO, IPB #### [facility] (DEFAULT) [address] [place] [address] 69204 Specimen type Nom (Spec) Venous Normal [facility] Comment on above: Performed By: #### Karyn HM7, MGO, IPB #### [facility] (DEFAULT) [address] [place] [address] 45561 Base Excess 11.0 mmol/L High -3.0-3.0 [facility] Comment on above: Performed By: #### DAXA VALDES, IPB #### U [facility] (DEFAULT) [address] [place] [address] 32000 HCO3 (Bld) [Moles/Vol] 37 mmol/L High 22-29 [facility] Comment on above: Performed By: #### DAXA VALDES, IPB #### U [facility] (DEFAULT) [address] [place] [address] 55716 Oxygen saturation in Blood 53 % Low 70-80 [facility] Comment on above: Performed By: #### DAXA VALDES, IPB #### Que [facility] (DEFAULT) [address] [place] [address] 32050 pCO2, Venous 74 mm Hg Critically high 36-52 [facility] Comment on above: Performed By: #### DAXA VALDES, IPB #### Que [facility] (DEFAULT) [address] [place] [address] 77209 pH, Venous 7.31 Low 7.32-7.43 [facility] Comment on above: Performed By: #### DAXA VALDES, IPB #### [facility] (DEFAULT) [address] [place] [address] 40383 pO2, Venous < Normal [facility] Comment on above: Result Comment: Veno us pO2 is not recommended for the evaluation of oxygen status, clinical correlation is recommended. Performed By: #### DAXA VALDES, IPB #### U [facility] (DEFAULT) [address] [place] [address] 74953 Specimen type Nom (Spec) Venous Normal [facility] Comment on above: Performed By: #### Karyn TONY7, MGO, IPB #### U [facility] (DEFAULT) [address] [place] [address] 33245 VENOUS BLOOD GASOrdered By: Michelle Grant on 10-29-2023 Base excess Calc (Bld) [Moles/Vol] 11.0 mmol/L High -3.0 - 3.0 [facility]/L [facility] (Bld[facility] [Partial pressure] 74 mm[Hg] [facility] HCO3 (Bld) [Moles/Vol] 37 mmol/L High 22 - 29 mmol/L [facility] Interpretation and review of laboratory results Abnormal [facility] Oxygen (Bld) [Partial pressure] mm Hg [facility] Comment on above: Venous pO2 is not re commended for the evaluation of oxygen status, clinical correlation is recommended. Oxygen saturation in Blood 53 % Low 70 - 80 % [facility] pH (Bld) 7.31 [pH] Low 7.32 - 7.43 [facility] Specimen source Nom (Unsp spec) Venous [facility] XR CHEST 1 VIEW PORTABLEon 0 10-29-2023 [...] fibrotic process predominantly. No dense consolidation. Normal [facility] XR Chest PA and Abdomen APon 10-27-2023 [...] pulmonary parenchymal scarring. VKR/hff Workstation ID: [id number] [facility] XR Chest PA and Abdomen APOr dered By: Nancy Bowie on 10-27-2023 [facility] Work Phone: BASIC METABOLIC PANELon 10-07 Anion gap [Moles/Vol] 15 mmol/L Normal 10-20 [facility] Comment on above: Order Comment: [facility] has implemented the eGFR calculation approach that does not have a coefficient for race that conforms to the NKF-ASN Task Force Recommendations. Performed By: #### 2 [id number] #### [facility] [address] [place] [address] Kvng William M.D. [id number] Calcium [Mass/Vol] 8.8 mg/dL Normal 8.4-10.2 [facility] Comment on above: Order Comment: [facility] has implemented the eGFR calculation approach that does not have a coefficient for race that conforms to the NKF-ASN Task Force Recommendations. Performed By: #### 4 [id number] #### [facility] [address] [place] [address] 46492 Kvng William M.D. [id number] Chloride [Moles/Vol] 100 mmol/L Normal 98-108 [facility] Comment on above: Order Comment: [facility] has implemented the eGFR calculation approach that does not have a coefficient for race that conforms to the NKF-ASN Task Force Recommendations. Performed By: #### 4 [id number] #### [facility] [address] [place], [place] [id number] Kvng William M.D. [id number] Creatinine [Mass/Vol] 0.77 mg/dL Low 0.80-1.30 [facility] Comment on above: Order Comment: [facility] has implemented the eGFR calculation approach that does not have a coefficient for race that conforms to the NKF-ASN Task Force Recommendations. Performed By: #### 4 [id number] #### [facility] [address] [place] [address] 69616 Kvng William M.D. [id number] EGFR 101 mL/min/1.73 m2 Normal >=60 [facility] Comment on above: Order Comment: [facility] has implemented the eGFR calculation approach that does not have a coefficient for race that conforms to the NKF-ASN Task Force Recommendations. Result Comment: Clarissa mated GFR was calculated using the 2020 CKD-EPI creatinine equation. Performed By: #### 4 [id number] #### [facility] [address] [place] [address] 98353 Kvng William M.D. [id number] Glucose [Mass/Vol] 105 mg/dL High 65-99 [facility] Comment on above: Order Comment: [facility] has implemented the eGFR calculation approach that does not have a coefficient for race that conforms to the NKF-ASN Task Force Recommendations. Performed By: #### 4 [id number] #### [facility] [address] [place] [address] 17049 Kvng William M.D. [id number] HCO3 (Bld) [Moles/Vol] 30 mmol/L Normal 21-32 [facility] Comment on above: Order Comment: [facility] has implemented the eGFR calculation approach that does not have a coefficient for race that conforms to the NKF-ASN Task Force Recommendations. Performed By: #### 4 [id number] #### [facility] [address] [place] [address] 40335 Kvng William M.D. [id number] Potassium [Moles/Vol] 4.5 mmol/L Normal 3.5-5.1 [facility] Comment on above: Order Comment: [facility] has implemented the eGFR calculation approach that does not have a coefficient for race that conforms to the NKF-ASN Task Force Recommendations. Result Comment: Slig htly Hemolyzed Performed By: #### 4 [id number] #### [facility] [address] [place] [address] 87376 Kvng William M.D. [id number] Sodium [Moles/Vol] 140 mmol/L Normal 135-145 [facility] Comment on above: Order Comment: [facility] has implemented the eGFR calculation approach that does not have a coefficient for race that conforms to the NKF-ASN Task Force Recommendations. Performed By: #### 4 [id number] #### [facility] [address] [place] [address] 49324 Kvng William M.D. [id number] Urea nitrogen [Mass/Vol] 16 mg/dL Normal 8-25 [facility] Comment on above: Order Comment: [facility] has implemented the eGFR calculation approach that does not have a coefficient for race that conforms to the NKF-ASN Task Force Recommendations. Performed By: #### 4 [id number] #### [facility] [address] [place] [address] 89132 Kvng William M.D. [id number] Urea nitrogen/Creatinine [Mass ratio] 20.8 mg/mg High 10.0-20.0 [facility] Comment on above: Order Comment: [facility] has implemented the eGFR calculation approach that does not have a coefficient for race that conforms to the NKF-ASN Task Force Recommendations. Performed By: #### 4 [id number] #### [facility] [address] [place] [address] 47860 Kvng William M.D. [id number] BLOOD GAS, VENOUSon 10-26-19 24 BASE EXCESS, VENOUS 3.7 High -2.0-2.0 [facility] Comment on above: Performed By: #### 4 6733 #### [facility] [address] [place] [address] 66812Edvin William M.D. [id number] HCO3 (Bld) [Moles/Vol] 33.3 mmol/L High 24.0-28.0 [facility] Comment on above: Performed By: #### 4 [id number] #### [facility] [address] [place] [address] 67861Edvin William M.D. [id number] Hematocrit (Bld) [Volume fraction] 49.6 % Normal 41.0-53.0 [facility] Comment on above: Performed By: #### 4 6740 #### [facility] [address] [place] [address] 76922 Kvng William M.D. [id number] Hemoglobin (Bld) [Mass/Vol] 16.2 g/dL Normal 13.5-17.5 [facility] Comment on above: Performed By: #### 4 6780 #### [facility] [address] [place], [place] [address]Digna AbreuD. [id number] Oxygen saturation in Blood 93.1 % High 40.0-70.0 [facility] Comment on above: Performed By: #### 4 [id number] #### [facility] [address] [place], [place] [address] Kvng William M.D. [id number] PCO2 VENOUS 73.6 mm Hg High 41.0-51.0 [facility] Comment on above: Performed By: #### 4 [id number] #### [facility] [address] [place] [address] Kvng William M.D. [id number] PH VENOUS 7.28 Low 7.32-7.42 [facility] Comment on above: Performed By: #### 4 [id number] #### [facility] [address] [place], [place] [address] Kvng William M.D. [id number] PO2 VENOUS 72 mm Hg High 25-40 [facility] Comment on above: Performed By: #### 4 [id number] #### [facility] [address] [place], [place] [address] Kvng William M.D. [id number] Basic metabolic 2000 panelOr dered By: Jocelyne Lynn on 10-26-2023 Anion gap [Moles/Vol] 15 mmol/L 10 - 2 0 mmol/L [facility] Calcium [Mass/Vol] 8.8 mg/dL 8.4 - 10. 2 mg/dL [facility] Chloride [Moles/Vol] 100 mmol/L 98 - 10 8 mmol/L [facility] Creatinine [Mass/Vol] 0.77 mg/dL Low 0.80 - 1.30 mg/dL [facility] GFR/1.73 sq M.predicted CKD-EPI (S/P/Bld) [Vol rate/Area] 101 - PINF [facility] Comment on above: Estimated GFR was ca lculated using the 2020 CKD-EPI creatinine equation. Glucose [Mass/Vol] 105 mg/dL High 65 - 99 mg/dL [facility] HCO3 [Moles/Vol] 30 mmol/L 21 - 32 mmol/L [facility] Interpretation and review of laboratory results Abnormal [facility] Potassium [Moles/Vol] 4.5 mmol/L 3.5 - 5.1 mmol/L [facility] Comment on above: Slightly Hemolyzed Sodium [Moles/Vol] 140 mmol/L 135 - 145 mmol/L [facility] Urea nitrogen [Mass/Vol] 16 mg/dL 8 - 25 mg/dL [facility] Urea nitrogen/Creatinine [Mass ratio] 20.8 mg/mg High 10.0 - 20.0 [facility] has implemented the eGFR calculation approach that does not have a coefficient for race that conforms to the NKF-ASN Task Force Recommendations. [facility] CBCon 10-26-2023 AUTO NRBC 0.0 % Normal [facility] Comment on above: Performed By: #### 4 [id number] #### [facility] [address] [place] [address] Kvng William M.D. [id number] AUTO NRBC ABS COUNT 0.00 K/mcL Normal 0.00-0.00 [facility] Comment on above: Performed By: #### 4 [id number] #### [facility] [address] [place], [place] [address] Kvng William M.D. [id number] Erythrocyte distribution width (RBC) [Ratio] 13.6 % Normal 11.6-14.8 [facility] Comment on above: Performed By: #### 4 [id number] #### [facility] [address] [place], [place] [address] Kvng William M.D. [id number] Hematocrit (Bld) [Volume fraction] 48.3 % Normal 41.0-53.0 [facility] Comment on above: Performed By: #### 4 [id number] #### [facility] [address] [place], [place] [address] Kvng William M.D. [id number] Hemoglobin (Bld) [Mass/Vol] 15.5 g/dL Normal 13.5-17.5 [facility] Comment on above: Performed By: #### 4 [id number] #### [facility] [address] [place] [address] 44097 Kvng William M.D. [id number] MCH (RBC) [Entitic mass] 31.0 pg Normal 26.0-34.0 [facility] Comment on above: Performed By: #### 4 [id number] #### [facility] [address] [place] [address] Kvng William M.D. [id number] MCV (RBC) [Entitic vol] 96.6 fL Normal 80.0-100.0 [facility] Comment on above: Performed By: #### 4 [id number] #### [facility] [address] [place], [place] [address] Kvng William M.D. [id number] MEAN CORPUSCULAR HEMOGLOBIN CONC 32.1 g/dL Normal 31.0-37.0 [facility] Comment on above: Performed By: #### 4 [id number] #### [facility] [address] [place], [place] [address] Kvng William M.D. [id number] Platelet mean volume (Bld) [Entitic vol] 9.8 fL Normal 9.4-12.4 [facility] Comment on above: Performed By: #### 4 [id number] #### [facility] [address] [place], [place] [address] Kvng William M.D. [id number] Platelets (Bld) [#/Vol] 210 10*3/uL Normal 150-400 [facility] Comment on above: Performed By: #### 4 [id number] #### [facility] [address] [place], [place] [address] Kvng William M.D. [id number] RBC (Bld) [#/Vol] 5.00 10*6/uL Normal 4.50-5.90 [facility] Comment on above: Performed By: #### 4 [id number] #### [facility] [address] [place] [address] 13660 Kvng William M.D. [id number] WBC (Bld) [#/Vol] 9.41 10*3/uL Normal 4.50-11.00 [facility] Comment on above: Performed By: #### 4 [id number] #### [facility] [address] [place] [address] 34945 Kvng William M.D. [id number] CBC panel Auto (Bld)on 10-25 Erythrocyte distribution width (RBC) [Entitic vol] 13.6 % 11.6 - 14.8 % [facility] Hematocrit (Bld) [Volume fraction] 48.3 % 41.0 - 53.0 % [facility] Hemoglobin (Bld) [Mass/Vol] 15.5 g/dL 13.5 - 17.5 g/dL [facility] MCH (RBC) [Entitic mass] 31.0 pg 26.0 - 34.0 pg [facility] MCHC (RBC) [Mass/Vol] 32.1 g/dL 31.0 - 37.0 g/dL [facility] MCV (RBC) [Entitic vol] 96.6 fL 80.0 - 100.0 fL [facility] Nucleated RBC (Bld) [#/Vol] 0.00 10*3/uL [facility] Nucleated RBC/100 WBC (Bld) [Ratio] 0.0 % [facility] Platelet mean volume (Bld) [Entitic vol] 9.8 fL 9.4 - 12.4 fL [facility] Platelets (Bld) [#/Vol] 210 10*3/uL [facility] RBC (Bld) [#/Vol] 5.00 10*6/uL [facility] WBC (Bld) [#/Vol] 9.41 10*3/uL [facility] 12-leadon 10-26-2023 Atrial Rate 110 BPM [facility] P [place] 85 degrees [facility] P-R Interval 140 ms [facility] Q-T Interval 304 ms [facility] QRS Duration 90 ms [facility] QTC Calculation (Bezet) 411 ms [facility] R [place] 91 degrees [facility] T [place] 69 degrees [facility] Ventricular Rate 110 BPM [facility] Sin[facility] tachycardia Rightward axis Anterior infarct , age undetermined Abnormal ECG Confirmed by SONNY KEE MD ([id number]) on 10/26/2023 8:22:09 AM MUSE [facility] Gas panel (BldV)Ordered By: Haydee Griggs on 10-26-2023 Base excess Calc (BldV) [Moles/Vol] 3.7 mmol/L High -2.0 - 2.0 [facility] CO2 (BldV) [Partial pressure] 73.6 mm[Hg] High [facility] HCO3 (Bld) [Moles/Vol] 33.3 mmol/L High 24.0 - 28.0 mmol/L [facility] Hematocrit (BldA) [Volume fraction] 49.6 % 41.0 - 53.0 % [facility] Hemoglobin (Bld) [Mass/Vol] 16.2 g/dL 13.5 - 17.5 g/dL [facility] Interpretation and review of laboratory results Abnormal [facility] Oxygen (BldV) [Partial pressure] 72 mm[Hg] High [facility] Oxygen saturation in Venous blood 93.1 % High 40.0 - 70.0 % [facility] pH (BldV) 7.28 [pH] Low 7.32 - 7.42 [facility] MAGNESIUM LEVELon 10-26-2023 Magnesium [Mass/Vol] 2.2 mg/dL Normal 1.6-2.4 [facility] Comment on above: Performed By: #### 4 6109 #### [facility] [address] [place] [address] Kvng William M.D. [id number] Magnesium Levelon 10-26-2023 Magnesium [Mass/Vol] 2.2 mg/dL 1.6 - 2 .4 mg/dL [facility] Magnesium [Mass/Vol]on 10-25 Interpretation and review of laboratory results Normal [facility] No Panel InformationOrdered By: Jocelyne Lynn on 10-26-2023 [facility] Obtain venous blood gases an d performon 10-26-2023 [facility] XR CHEST PA/APon 10-26-2023 XR [...] ThuOctober 27, 2023 6:00:37 AM EDT Normal [facility] Comment on above: Order Comment: Injur y/Trauma or Illness?:Illness/Other How long have you had these symptoms (acute/chronic)?:Unknown Reason for exam?:shortness of breath History of cancer?:unknown Surgeries, chemotherapy, or radiation?:unknown Type of Exam?:Initial Additional signs and symptoms?:. XR Chest PA and Abdomen APon 10-26-2023 Radiology Study observation (narrative) [facility] BASIC METABOLIC PANELon 10-06 Anion gap [Moles/Vol] 14 mmol/L Normal - [facility] Comment on above: Order Comment: [facility] has implemented the eGFR calculation approach that does not have a coefficient for race that conforms to the NKF-ASN Task Force Recommendations. Performed By: #### 4 [id number] #### [facility] [address] [place] [address] Kvng William M.D. [id number] Calcium [Mass/Vol] 8.2 mg/dL Low 8.4-10.2 [facility] Comment on above: Order Comment: [facility] has implemented the eGFR calculation approach that does not have a coefficient for race that conforms to the NKF-ASN Task Force Recommendations. Performed By: #### 4 [id number] #### [facility] [address] [place] [address] Kvng William M.D. [id number] Chloride [Moles/Vol] 101 mmol/L Normal 98-108 [facility] Comment on above: Order Comment: [facility] has implemented the eGFR calculation approach that does not have a coefficient for race that conforms to the NKF-ASN Task Force Recommendations. Performed By: #### 4 [id number] #### [facility] [address] [place] [address] 31151 Kvng William M.D. [id number] Creatinine [Mass/Vol] 0.98 mg/dL Normal 0.80-1.30 [facility] Comment on above: Order Comment: [facility] has implemented the eGFR calculation approach that does not have a coefficient for race that conforms to the NKF-ASN Task Force Recommendations. Performed By: #### 4 [id number] #### [facility] [address] [place] [address] 43334 Kvng William M.D. [id number] EGFR 87 mL/min/1.73 m2 Normal >=60 [facility] Comment on above: Order Comment: [facility] has implemented the eGFR calculation approach that does not have a coefficient for race that conforms to the NKF-ASN Task Force Recommendations. Result Comment: Clarissa mated GFR was calculated using the 2020 CKD-EPI creatinine equation. Performed By: #### 4 [id number] #### [facility] [address] [place] [address] 66219 Kvng William M.D. [id number] Glucose [Mass/Vol] 117 mg/dL High 65-99 [facility] Comment on above: Order Comment: [facility] has implemented the eGFR calculation approach that does not have a coefficient for race that conforms to the NKF-ASN Task Force Recommendations. Performed By: #### 4 [id number] #### [facility] [address] [place] [address] 687[address] Kvng William M.D. [id number] HCO3 (Bld) [Moles/Vol] 27 mmol/L Normal 21-32 [facility] Comment on above: Order Comment: [facility] has implemented the eGFR calculation approach that does not have a coefficient for race that conforms to the NKF-ASN Task Force Recommendations. Performed By: #### 4 [id number] #### [facility] [address] [place] [address] 445[address] Kvng William M.D. [id number] Potassium [Moles/Vol] 4.1 mmol/L Normal 3.5-5.1 [facility] Comment on above: Order Comment: [facility] [place] [facility] has implemented the eGFR calculation approach that does not have a coefficient for race that conforms to the NKF-ASN Task Force Recommendations. Performed By: #### [id number] #### [facility] [address] [place] [address] Kvng William M.D. [id number] Sodium [Moles/Vol] 138 mmol/L Normal 135-145 [facility] Comment on above: Order Comment: [facility] has implemented the eGFR calculation approach that does not have a coefficient for race that conforms to the NKF-ASN Task Force Recommendations. Performed By: #### [id number] #### [facility] [address] [place] [address] Kvng William M.D. [id number] Urea nitrogen [Mass/Vol] 13 mg/dL Normal 8-25 [facility] Comment on above: Order Comment: [facility] has implemented the eGFR calculation approach that does not have a coefficient for race that conforms to the NKF-ASN Task Force Recommendations. Performed By: #### [id number] #### [facility] [address] [place] [address] Kvng William M.D. [id number] Urea nitrogen/Creatinine [Mass ratio] 13.3 mg/mg Normal 10.0-20.0 [facility] Comment on above: Order Comment: [facility] has implemented the eGFR calculation approach that does not have a coefficient for race that conforms to the NKF-ASN Task Force Recommendations. Performed By: #### [id number] #### [facility] [place], [place] [address] Kvng William M.D. [id number] Basic metabolic 2000 panelon 10-25-2023 Anion gap [Moles/Vol] 14 mmol/L 10 - 2 0 mmol/L [facility] Calcium [Mass/Vol] 8.2 mg/dL Low 8.4 - 10. 2 mg/dL [facility] Chloride [Moles/Vol] 101 mmol/L 98 - 10 8 mmol/L [facility] Creatinine [Mass/Vol] 0.98 mg/dL 0.80 - 1.30 mg/dL [facility] GFR/1.73 sq M.predicted CKD-EPI (S/P/Bld) [Vol rate/Area] 87 - PINF [facility] Comment on above: Estimated GFR was ca lculated using the 2020 CKD-EPI creatinine equation. Glucose [Mass/Vol] 117 mg/dL High 65 - 99 mg/dL [facility] HCO3 [Moles/Vol] 27 mmol/L 21 - 32 mmol/L [facility] Interpretation and review of laboratory results Abnormal [facility] Potassium [Moles/Vol] 4.1 mmol/L 3.5 - 5.1 mmol/L [facility] Sodium [Moles/Vol] 138 mmol/L 135 - 145 mmol/L [facility] Urea nitrogen [Mass/Vol] 13 mg/dL 8 - 25 mg/dL [facility] Urea nitrogen/Creatinine [Mass ratio] 13.3 mg/mg 10.0 - 20.0 [facility] has implemented the eGFR calculation approach that does not have a coefficient for race that conforms to the NKF-ASN Task Force Recommendations. [facility] CBC Auto Differentialon 10-06 Basophils (Bld) [#/Vol] 0.10 10*3/uL [facility] Basophils/100 WBC (Bld) 1.6 % [facility] Eosinophils (Bld) [#/Vol] 0.31 10*3/uL [facility] Eosinophils/100 WBC (Bld) 5.1 % [facility] Erythrocyte distribution width (RBC) [Entitic vol] 13.5 % 11.6 - 14.8 % [facility] Hematocrit (Bld) [Volume fraction] 49.0 % 41.0 - 53.0 % [facility] Hemoglobin (Bld) [Mass/Vol] 15.9 g/dL 13.5 - 17.5 g/dL [facility] Immature granulocytes (Bld) [#/Vol] 0.02 10*3/uL [facility] Immature granulocytes/100 WBC (Bld) 0.30 % [facility] Comment on above: The IG parameter is the percentage of metamyelocytes, myelocytes and promyelocytes. An immature granulocyte count (IG) of 1% or more suggests the possibility of infection, an IG count of 3% is very likely related to an infection. Lymphocytes (Bld) [#/Vol] 0.90 10*3/uL [facility] Lymphocytes/100 WBC (Bld) 14.8 % [facility] MCH (RBC) [Entitic mass] 31.1 pg 26.0 - 34.0 pg [facility] MCHC (RBC) [Mass/Vol] 32.4 g/dL 31.0 - 37.0 g/dL [facility] MCV (RBC) [Entitic vol] 95.9 fL 80.0 - 100.0 fL [facility] Monocytes (Bld) [#/Vol] 0.82 10*3/uL [facility] Monocytes/100 WBC (Bld) 13.4 % [facility] Neutrophils (Bld) [#/Vol] 3.95 10*3/uL [facility] Neutrophils/100 WBC (Bld) 64.8 % [facility] Nucleated RBC (Bld) [#/Vol] 0.00 10*3/uL [facility] Nucleated RBC/100 WBC (Bld) [Ratio] 0.0 % [facility] Platelet mean volume (Bld) [Entitic vol] 9.8 fL 9.4 - 12.4 fL [facility] Platelets (Bld) [#/Vol] 194 10*3/uL [facility] RBC (Bld) [#/Vol] 5.11 10*6/uL [facility] WBC (Bld) [#/Vol] 6.10 10*3/uL [facility] CBC WITH AUTO DIFFERENTIALon 10-25-2023 AUTO NRBC 0.0 % Normal [facility] Comment on above: Performed By: #### L [id number] ####[facility] [address] [place] [address] Kvng William M.D. [id number] AUTO NRBC ABS COUNT 0.00 K/mcL Normal 0.00-0.00 [facility] Comment on above: Performed By: #### L [id number] ####[facility] [address] [place] [address] Kvng William M.D. [id number] BASOPHILS ABSOLUTE COUNT 0.10 K/mcL Normal 0.00-0.30 [facility] Comment on above: Performed By: #### L [id number] ####[facility] [address] [place] [address] Kvng William M.D. [id number] Basophils/100 WBC (Bld) 1.6 % Normal [facility] Comment on above: Performed By: #### L [id number] ####[facility] [address] [place] [address] Kvng William M.D. [id number] Eosinophils (Bld) [#/Vol] 0.31 10*3/uL Normal 0.00-0.50 [facility] Comment on above: Performed By: #### L [id number] ####[facility] [address] [place] [address] Kvng William M.D. [id number] Eosinophils/100 WBC (Bld) 5.1 % Normal [facility] Comment on above: Performed By: #### L [id number] ####[facility] [address] [place] [address] Kvng William M.D. [id number] Erythrocyte distribution width (RBC) [Ratio] 13.5 % Normal 11.6-14.8 [facility] Comment on above: Performed By: #### L [id number] ####[facility] [address] [place] [address] Kvng William M.D. [id number] Hematocrit (Bld) [Volume fraction] 49.0 % Normal 41.0-53.0 [facility] Comment on above: Performed By: #### L [id number] ####[facility] [address] [place] [address] Kvng William M.D. [id number] Hemoglobin (Bld) [Mass/Vol] 15.9 g/dL Normal 13.5-17.5 [facility] Comment on above: Performed By: #### L [id number] ####[facility] [address] [place] [address] Kvng William M.D. [id number] IG ABSOLUTE 0.02 K/mcL Normal 0.00-0.30 [facility] Comment on above: Performed By: #### L [id number] ####[facility] [address] [place] [address] Kvng William M.D. [id number] IG PERCENT 0.30 % Normal [facility] Comment on above: Result Comment: The IG parameter is the percentage of metamyelocytes, myelocytes and promyelocytes. An immature granulocyte count (IG) of 1% or more suggests the possibility of infection, an IG count of 3% is very likely related to an infection. Performed By: #### L [id number] ####[facility] [address] [place] [address] Kvng William M.D. [id number] Lymphocytes (Bld) [#/Vol] 0.90 10*3/uL Normal 0.90-4.00 [facility] Comment on above: Performed By: #### Paresh [id number] ####[facility] [address] [place] [address] Kvng William M.D. [id number] Lymphocytes/100 WBC (Bld) 14.8 % Normal [facility] Comment on above: Performed By: #### Paresh [id number] ####[facility] [address] [place] [address] Kvng William M.D. [id number] MCH (RBC) [Entitic mass] 31.1 pg Normal 26.0-34.0 [facility] Comment on above: Performed By: #### Paresh [id number] ####[facility] [address] [place] [address] Kvng William M.D. [id number] MCV (RBC) [Entitic vol] 95.9 fL Normal 80.0-100.0 [facility] Comment on above: Performed By: #### Paresh [id number] ####[facility] [address] [place] [address] Kvng William M.D. [id number] MEAN CORPUSCULAR HEMOGLOBIN CONC 32.4 g/dL Normal 31.0-37.0 [facility] Comment on above: Performed By: #### Paresh [id number] ####[facility] [address] [place] [address] Kvng William M.D. [id number] Monocytes (Bld) [#/Vol] 0.82 10*3/uL Normal 0.30-0.90 [facility] Comment on above: Performed By: #### Paresh [id number] ####[facility] [address] [place] [address] Kvng William M.D. [id number] Monocytes/100 WBC (Bld) 13.4 % Normal [facility] Comment on above: Performed By: #### L [id number] ####[facility] [address] [place], [place] [address] Kvng William M.D. [id number] NEUTROPHILS ABSOLUTE COUNT 3.95 K/mcL Normal 1.70-7.00 [facility] Comment on above: Performed By: #### L [id number] ####[facility] [address] [place] [address] Kvng William M.D. [id number] Neutrophils/100 WBC (Bld) 64.8 % Normal [facility] Comment on above: Performed By: #### L [id number] ####[facility] [address] [place] [address] Kvng William M.D. [id number] Platelet mean volume (Bld) [Entitic vol] 9.8 fL Normal 9.4-12.4 [facility] Comment on above: Performed By: #### L [id number] ####[facility] [address] [place] [address] Kvng William M.D. [id number] Platelets (Bld) [#/Vol] 194 10*3/uL Normal 150-400 [facility] Comment on above: Performed By: #### L [id number] ####[facility] [address] [place], [place] [address] Kvng William M.D. [id number] RBC (Bld) [#/Vol] 5.11 10*6/uL Normal 4.50-5.90 [facility] Comment on above: Performed By: #### L [id number] ####[facility] [address] [place], [place] [address] Kvng William M.D. [id number] WBC (Bld) [#/Vol] 6.10 10*3/uL Normal 4.50-11.00 [facility] Comment on above: Performed By: #### L [id number] ####[facility] [address] [place] [address] Kvng William M.D. [id number] ED Prov Noteon 10-25-2023 ED Prov Note [...] ED attending, Dr. Cabral. Will admit to [facility]. Please see hospital attending physician note for further information and final disposition of this patient. Impressions: 1. COPD exacerbation (HCC) 2. Increased sputum production 3. Tachypnea [facility] Data ED Course as of 10/25/232114 Sun October 25, [id number] Spoke with [facility], agreeable for admission [RO] ED Course User Index [RO] Mirta Christopher PA-C [facility] Data: External Documents/Labs Reviewed, ECG interpreted, X-ray interpretation reviewed, Discussed with consultants/staff, and Shared decision making utilized Previous Records Reviewed . . Labs Reviewed BASIC METABOLIC PANEL - Abnormal; Notable for the following components: Result Value Glucose 117 (*) Calcium 8.2 (*) All other components within normal limits Narrative: [facility] has implemented the eGFR calculation approach that does not have a coefficient for race that conforms to the NKF-ASN Task Force Recommendations. POC VBG LAB([facility]) - RALS - Abnormal; Notable for the following components: pCO2, Edison 53.5 (*) pO2, [place] 58 (*) O2 Sat, [place] 87.3 (*) Hemoglobin, Calculated 18.0 (*) Glucose 120 (*) Ionized Calcium 4.2 (*) All other components within normal limits Narrative: [facility] has implemented the eGFR calculation approach that does not have a coefficient for race that conforms to the NKF-ASN Task Force Recommendations. OBTAIN VENOUS BLOOD GASES AND PERFORM CBC AND DIFFERENTIAL Narrative: The following orders were created for panel order CBC w/ Diff. Procedure Abnormality Status --------- ------ CBC Auto Differential[[id number]] Final result Please view results for these [...] DECISION MAKING (more content not included)... Normal [facility] Gold Topon 10-25-2023 Extra Tube Hold for add-ons. [facility] Comment on above: Auto resulted. [facility] No Panel Informationon 10-24 Extra Tube Hold for add-ons. [facility] Comment on above: Auto resulted. [facility] POC VBG LAB(EPOC) - RALSon 0 10-25-2023 BASE EXCESS, VENOUS 1.4 Normal -2.0-2.0 [facility] Comment on above: Order Comment: [facility] has implemented the eGFR calculation approach that does not have a coefficient for race that conforms to the NKF-ASN Task Force Recommendations. Performed By: #### P [id number] ####[facility] [address] [place] [address] Kvng William M.D. [id number] CALCIUM IONIZED 4.2 mg/dL Low 4.5-5.3 [facility] Comment on above: Order Comment: [facility] has implemented the eGFR calculation approach that does not have a coefficient for race that conforms to the NKF-ASN Task Force Recommendations. Performed By: #### P [id number] ####[facility] [address] [place] [address] Kvng William M.D. [id number] Chloride [Moles/Vol] 100 mmol/L Normal 98-108 [facility] Comment on above: Order Comment: [facility] has implemented the eGFR calculation approach that does not have a coefficient for race that conforms to the NKF-ASN Task Force Recommendations. Performed By: #### P [id number] ####[facility] [address] [place] [address] Kvng William M.D. [id number] CO2 [Moles/Vol] 28 mmol/L Normal 21-32 [facility] Comment on above: Order Comment: [facility] has implemented the eGFR calculation approach that does not have a coefficient for race that conforms to the NKF-ASN Task Force Recommendations. Performed By: #### P [id number] ####[facility] [address] [place], [place] [address] Kvng William M.D. [id number] Creatinine [Mass/Vol] 0.90 mg/dL Normal 0.80-1.30 [facility] Comment on above: Order Comment: [facility] has implemented the eGFR calculation approach that does not have a coefficient for race that conforms to the NKF-ASN Task Force Recommendations. Performed By: #### P [id number] ####[facility] [address] [place] [address] Kvng William M.D. [id number] Glucose [Mass/Vol] 120 mg/dL High 65-99 [facility] Comment on above: Order Comment: [facility] has implemented the eGFR calculation approach that does not have a coefficient for race that conforms to the NKF-ASN Task Force Recommendations. Performed By: #### P [id number] ####[facility] [address] [place], [place] [address] Kvng William M.D. [id number] Hematocrit (Bld) [Volume fraction] 53 % Normal 41-53 [facility] Comment on above: Order Comment: [facility] has implemented the eGFR calculation approach that does not have a coefficient for race that conforms to the NKF-ASN Task Force Recommendations. Performed By: #### P [id number] ####[facility] [address] [place] [address] Kvng William M.D. [id number] HEMOGLOBIN, CALCULATED 18.0 g/dL High 13.5-17.5 [facility] Comment on above: Order Comment: [facility] has implemented the eGFR calculation approach that does not have a coefficient for race that conforms to the NKF-ASN Task Force Recommendations. Performed By: #### P [id number] ####[facility] [address] [place], [place] [address] Kvng William M.D. [id number] Oxygen saturation in Blood 87.3 % High 40.0-70.0 [facility] Comment on above: Order Comment: [facility] has implemented the eGFR calculation approach that does not have a coefficient for race that conforms to the NKF-ASN Task Force Recommendations. Performed By: #### P [id number] ####[facility] [address] [place] [address] Kvng William M.D. [id number] PCO2 VENOUS 53.5 mm Hg High 41.0-51.0 [facility] Comment on above: Order Comment: [facility] has implemented the eGFR calculation approach that does not have a coefficient for race that conforms to the NKF-ASN Task Force Recommendations. Performed By: #### P [id number] ####[facility] [address] [place], [place] [address] Kvng William M.D. [id number] PH VENOUS 7.34 Normal 7.32-7.42 [facility] Comment on above: Order Comment: [facility] has implemented the eGFR calculation approach that does not have a coefficient for race that conforms to the NKF-ASN Task Force Recommendations. Performed By: #### P [id number] ####[facility] [address] [place], [place] [address] Kvng William M.D. [id number] PO2 VENOUS 58 mm Hg High 25-40 [facility] Comment on above: Order Comment: [facility] has implemented the eGFR calculation approach that does not have a coefficient for race that conforms to the NKF-ASN Task Force Recommendations. Performed By: #### P [id number] ####[facility] [address] [place], [place] [address] Kvng William M.D. [id number] POC GFR 96 mL/min/1.73 m2 Normal >=60 [facility] Comment on above: Order Comment: [facility] has implemented the eGFR calculation approach that does not have a coefficient for race that conforms to the NKF-ASN Task Force Recommendations. Result Comment: Clarissa mated GFR was calculated using the 2020 CKD-EPI creatinine equation. Performed By: #### P [id number] ####[facility] [address] [place], [place] [address] Kvng William M.D. [id number] POC LACTATE 1.1 mmol/L Normal 0.6-2.0 [facility] Comment on above: Order Comment: [facility] has implemented the eGFR calculation approach that does not have a coefficient for race that conforms to the NKF-ASN Task Force Recommendations. Performed By: #### P [id number] ####[facility] [address] [place] [address] Kvng William M.D. [id number] Potassium [Moles/Vol] 4.0 mmol/L Normal 3.5-5.1 [facility] Comment on above: Order Comment: [facility] has implemented the eGFR calculation approach that does not have a coefficient for race that conforms to the NKF-ASN Task Force Recommendations. Performed By: #### P [id number] ####[facility] [address] [place] [address] Kvng William M.D. [id number] Sodium [Moles/Vol] 138 mmol/L Normal 135-145 [facility] Comment on above: Order Comment: [facility] has implemented the eGFR calculation approach that does not have a coefficient for race that conforms to the NKF-ASN Task Force Recommendations. Performed By: #### P [id number] ####[facility] [address] [place] [address] Kvng William M.D. [id number] Urea nitrogen [Mass/Vol] 13 mg/dL Normal 8-25 [facility] Comment on above: Order Comment: [facility] has implemented the eGFR calculation approach that does not have a coefficient for race that conforms to the NKF-ASN Task Force Recommendations. Performed By: #### P [id number] ####[facility] [address] [place] [address] Kvng William M.D. [id number] POC Venous Blood Gases with Full PanelOrdered By: Devon Burnham on 10-25-2023 Base excess Calc (BldV) [Moles/Vol] 1.4 mmol/L -2.0 - 2.0 [facility] Calcium.ionized [Mass/Vol] 4.2 mg/dL Low 4.5 - 5.3 mg/dL [facility] Chloride [Moles/Vol] 100 mmol/L 98 - 10 8 mmol/L [facility] CO2 (BldV) [Partial pressure] 53.5 mm[Hg] High [facility] CO2 [Moles/Vol] 28 mmol/L 21 - 32 mmol/L [facility] Creatinine [Mass/Vol] 0.90 mg/dL 0.80 - 1.30 mg/dL [facility] GFR/1.73 sq M.predicted CKD-EPI (S/P/Bld) [Vol rate/Area] 96 - PINF [facility] Comment on above: Estimated GFR was ca lculated using the 2020 CKD-EPI creatinine equation. Glucose [Mass/Vol] 120 mg/dL High 65 - 99 mg/dL [facility] Hematocrit (Bld) [Volume fraction] 53 % 41 - 53 % [facility] Hemoglobin (Bld) [Mass/Vol] 18.0 g/dL High 13.5 - 17.5 g/dL [facility] Interpretation and review of laboratory results Abnormal [facility] Lactate (Bld) [Mass/Vol] 1.1 mmol/L 0.6 - 2.0 mmol/L [facility] Oxygen (BldV) [Partial pressure] 58 mm[Hg] High [facility] Oxygen saturation in Venous blood 87.3 % High 40.0 - 70.0 % [facility] pH (BldV) 7.34 [pH] 7.32 - 7.42 [facility] Potassium [Moles/Vol] 4.0 mmol/L 3.5 - 5.1 mmol/L [facility] Sodium [Moles/Vol] 138 mmol/L 135 - 145 mmol/L [facility] Urea nitrogen [Mass/Vol] 13 mg/dL 8 - 25 mg/dL [facility] has implemented the eGFR calculation approach that does not have a coefficient for race that conforms to the NKF-ASN Task Force Recommendations. [facility] TROPONINon 10-25-2023 BASELINE TROPONIN T NG/L 11 ng/L Normal <=22 [facility] Comment on above: Performed By: #### [id number] ####[facility] [address] [place], [place] [address] Kvng William M.D. [id number] TROPONIN T INTERPRETATION Normal Normal [facility] Comment on above: Performed By: #### [id number] ####[facility] [address] [place] [address] Kvng William M.D. [id number] Troponinon 10-25-2023 Troponin T 11 ng/L NINF - 22 ng/L [facility] Troponin T Interpretation Normal [facility] XR CHEST PA/APon 10-25-2023 XR [...] on ThuOctober 25, 2023 7:20:56 PM EDT [facility] Comment on above: Order Comment: Injur y/Trauma or Illness?:Illness/Other How long have you had these symptoms (acute/chronic)?:Acute Reason for exam?:shortness of breath History of cancer?:unknown Surgeries, chemotherapy, or radiation?:unknown Type of Exam?:Initial Additional signs and symptoms?:- XR Chest PA and Abdomen APon 10-25-2023 No acute pulmonary disease. Workstation ID: [id number] EXAMINATION: XR CHEST PA/AP EXAM DATE: 10/25/2023 [...] mid lung.. There is no acute consolidation. NGRAIN RIS Yakov Way MD - 10/25/2023 EXAMINATION: [...] No acute pulmonary disease. Workstation ID: [id number] [facility] Radiology Study observation (narrative) [facility] XR Chest PA and Abdomen APOr dered By: Yakov Way on 10-25-2023 [facility] Work Phone: CHEM [phone] (LYTES, BUN CREA)on 0 10-02-2023 Anion gap [Moles/Vol] 10 mmol/L 7 - 17 mmol/L [facility] Chloride [Moles/Vol] 100 mmol/L 98 - 10 8 mmol/L [facility] CO2 [Moles/Vol] 33 mmol/L High 21 - 31 mmol/L [facility] Creatinine [Mass/Vol] 0.90 mg/dL 0.70 - 1.30 mg/dL [facility] eGFR, CKD-EPI, Male - PINF [facility] Comment on above: Reported eGFR is bas ed on the CKD-EPI 2020 equation using creatinine, age, and sex. Potassium [Moles/Vol] 4.0 mmol/L 3.5 - 5.0 mmol/L [facility] Sodium [Moles/Vol] 139 mmol/L 135 - 145 mmol/L [facility] Urea nitrogen [Mass/Vol] 11 mg/dL 7 - 25 mg/dL [facility] Urea nitrogen/Creatinine [Mass ratio] 12 mg/mg [facility] HEMOGLOBIN A1Con 10-02-2023 Average glucose Estimated from glycated hemoglobin (Bld) [Mass/Vol] 108 mg/dL [facility] HbA1c (Bld) [Mass fraction] 5.4 % 4.7 - 5.6 % [facility] HEPATIC FUNCTION PANELon Albumin [Mass/Vol] 4.0 g/dL 3.5 - 5.0 g/dL [facility] ALP [Catalytic activity/Vol] 115 U/L 32 - 126 U/L [facility] ALT [Catalytic activity/Vol] 22 U/L 10 - 52 U/L [facility] AST [Catalytic activity/Vol] 15 U/L 10 - 39 U/L [facility] Bilirubin [Mass/Vol] 0.4 mg/dL NINF - 1.5 mg/dL [facility] Bilirubin.direct [Mass/Vol] 0.1 mg/dL NINF - 0.3 mg/dL [facility] Protein [Mass/Vol] 6.7 g/dL 6.4 - 8.3 g/dL [facility] LIPID PANEL W CALCULATED LDL on 10-02-2023 Cholesterol [Mass/Vol] 144 mg/dL NINF - 200 mg/dL [facility] Comment on above: [<200 mg/dL: Desirab le] [200-239 mg/dL: Borderline High] [>239 mg/dL: High] Cholesterol in HDL [Mass/Vol] 34 mg/dL Low 40 - PINF mg/dL [facility] Comment on above: [<40 mg/dL: Low (Hig h Risk)] [>59 mg/dL: High (Low Risk)] Cholesterol in LDL [Mass/Vol] 82 mg/dL 0 - 99 mg/dL [facility] Comment on above: [<100 mg/dL: Optimal ] [100-129 mg/dL: Near Optimal] [130-159 mg/dL: Borderline High] [160-189 mg/dL: High] [>189 mg/dL: Very High] Cholesterol non HDL [Mass/Vol] 110 mg/dL NINF - 130 mg/dL [facility] Cholesterol.total/Cho lesterol in HDL [Mass ratio] 4.2 {ratio} NINF - 4.5 [facility] Triglyceride [Mass/Vol] 141 mg/dL NINF - 150 mg/dL [facility] Comment on above: [<150 mg/dL: Desirab le] [150-199 mg/dL: Borderline] [200-499 mg/dL: High] [>500 mg/dL: Very High] MAGNESIUMon 10-02-2023 Magnesium [Mass/Vol] 2.1 mg/dL 1.6 - 2 .6 mg/dL [facility] No Panel Informationon 10-01 Interpretation and review of laboratory results Abnormal [facility] Interpretation and review of laboratory results Normal [facility] PSA, SCREENINGon 10-02-2023 Interpretation and review of laboratory results Abnormal [facility] Prostate specific Ag [Mass/Vol] 6.72 ng/mL High NINF - 4.00 ng/mL [facility] Comment on above: This test was perfor med on the [employer] Immunoassay platform which is a 2-step sandwich chemiluminescent immunoassay. It is important to note that assays using different manufacturers and/or methods may not be comparable. [facility] Basic metabolic 2000 panelon 08-21-2021 Anion gap [Moles/Vol] 17 mmol/L 10 - 2 0 mmol/L [facility] Calcium [Mass/Vol] 9.7 mg/dL 8.4 - 10. 2 mg/dL [facility] Chloride [Moles/Vol] 94 mmol/L Low 98 - 10 8 mmol/L [facility] Creatinine [Mass/Vol] 0.71 mg/dL Low 0.80 - 1.30 [facility] GFR/1.73 sq M.predicted CKD-EPI (S/P/Bld) [Vol rate/Area] 101 >=60 mL/min/1.73 m2 [facility] Glucose [Mass/Vol] 120 mg/dL High 65 - 99 mg/dL [facility] HCO3 [Moles/Vol] 30 mmol/L 21 - 32 mmol/L [facility] Interpretation and review of laboratory results Abnormal [facility] Potassium [Moles/Vol] 4.3 mmol/L 3.5 - 5.1 mmol/L [facility] Sodium [Moles/Vol] 137 mmol/L 135 - 145 mmol/L [facility] Urea nitrogen [Mass/Vol] 17 mg/dL 8 - 25 mg/dL [facility] Urea nitrogen/Creatinine [Mass ratio] 23.9 mg/mg High [facility] The eGFR should be u sed for monitoring renal function only and not for medication dosing. [facility] CBC Auto Differentialon 08-06 Basophils (Bld) [#/Vol] 0.04 10*3/uL [facility] Basophils/100 WBC (Bld) 0.2 % [facility] Eosinophils (Bld) [#/Vol] 0.00 10*3/uL [facility] Eosinophils/100 WBC (Bld) 0.0 % [facility] Erythrocyte distribution width (RBC) [Entitic vol] 13.0 % 11.6 - 14.8 % [facility] Hematocrit (Bld) [Volume fraction] 44.4 % 41.0 - 53.0 % [facility] Hemoglobin (Bld) [Mass/Vol] 14.7 g/dL 13.5 - 17.5 g/dL [facility] Immature granulocytes (Bld) [#/Vol] 0.22 10*3/uL [facility] Immature granulocytes/100 WBC (Bld) 1.00 % [facility] Comment on above: The IG parameter is the percentage of metamyelocytes, myelocytes and promyelocytes. An immature granulocyte count (IG) of 1% or more suggests the possibility of infection, an IG count of 3% is very likely related to an infection. Interpretation and review of laboratory results Abnormal [facility] Lymphocytes (Bld) [#/Vol] 0.65 10*3/uL Low [facility] Lymphocytes/100 WBC (Bld) 2.9 % [facility] MCH (RBC) [Entitic mass] 31.7 pg 26.0 - 34.0 pg [facility] MCHC (RBC) [Mass/Vol] 33.1 g/dL 31.0 - 37.0 g/dL [facility] MCV (RBC) [Entitic vol] 95.7 fL 80.0 - 100.0 fL [facility] Monocytes (Bld) [#/Vol] 1.28 10*3/uL High [facility] Monocytes/100 WBC (Bld) 5.8 % [facility] Neutrophils (Bld) [#/Vol] 19.92 10*3/uL High [facility] Neutrophils/100 WBC (Bld) 90.1 % [facility] Nucleated RBC (Bld) [#/Vol] 0.00 10*3/uL [facility] Nucleated RBC/100 WBC (Bld) [Ratio] 0.0 % [facility] Platelet mean volume (Bld) [Entitic vol] 9.2 fL Low 9.4 - 12.4 fL [facility] Platelets (Bld) [#/Vol] 343 10*3/uL [facility] RBC (Bld) [#/Vol] 4.64 10*6/uL [facility] WBC (Bld) [#/Vol] 22.11 10*3/uL [facility] CBC Auto Differentialon 08-06 Basophils (Bld) [#/Vol] 0.02 10*3/uL [facility] Basophils/100 WBC (Bld) 0.1 % [facility] Eosinophils (Bld) [#/Vol] 0.00 10*3/uL [facility] Eosinophils/100 WBC (Bld) 0.0 % [facility] Erythrocyte distribution width (RBC) [Entitic vol] 13.1 % 11.6 - 14.8 % [facility] Hematocrit (Bld) [Volume fraction] 42.4 % 41.0 - 53.0 % [facility] Hemoglobin (Bld) [Mass/Vol] 14.1 g/dL 13.5 - 17.5 g/dL [facility] Immature granulocytes (Bld) [#/Vol] 0.10 10*3/uL [facility] Immature granulocytes/100 WBC (Bld) 0.70 % [facility] Comment on above: The IG parameter is the percentage of metamyelocytes, myelocytes and promyelocytes. An immature granulocyte count (IG) of 1% or more suggests the possibility of infection, an IG count of 3% is very likely related to an infection. Interpretation and review of laboratory results Abnormal [facility] Lymphocytes (Bld) [#/Vol] 0.50 10*3/uL Low [facility] Lymphocytes/100 WBC (Bld) 3.3 % [facility] MCH (RBC) [Entitic mass] 32.0 pg 26.0 - 34.0 pg [facility] MCHC (RBC) [Mass/Vol] 33.3 g/dL 31.0 - 37.0 g/dL [facility] MCV (RBC) [Entitic vol] 96.4 fL 80.0 - 100.0 fL [facility] Monocytes (Bld) [#/Vol] 0.16 10*3/uL Low [facility] Monocytes/100 WBC (Bld) 1.0 % [facility] Neutrophils (Bld) [#/Vol] 14.54 10*3/uL High [facility] Neutrophils/100 WBC (Bld) 94.9 % [facility] Nucleated RBC (Bld) [#/Vol] 0.00 10*3/uL [facility] Nucleated RBC/100 WBC (Bld) [Ratio] 0.0 % [facility] Platelet mean volume (Bld) [Entitic vol] 9.6 fL 9.4 - 12.4 fL [facility] Platelets (Bld) [#/Vol] 280 10*3/uL [facility] RBC (Bld) [#/Vol] 4.40 10*6/uL Low [facility] e[facility] WBC (Bld) [#/Vol] 15.32 10*3/uL High [facility] Comprehensive metabolic 2000 panelon 08-20-2021 Albumin [Mass/Vol] 3.9 g/dL 3.2 - 5.2 g/dL [facility] ALP [Catalytic activity/Vol] 92 U/L 40 - 150 U/L [facility] ALT [Catalytic activity/Vol] 10 U/L 0 - 40 U/L [facility] Anion gap [Moles/Vol] 18 mmol/L 10 - 2 0 mmol/L [facility] AST [Catalytic activity/Vol] 10 U/L 0 - 45 U/L [facility] Bilirubin [Mass/Vol] 0.2 mg/dL 0.0 - 1 .3 mg/dL [facility] Calcium [Mass/Vol] 8.8 mg/dL 8.4 - 10. 2 mg/dL [facility] Chloride [Moles/Vol] 96 mmol/L Low 98 - 10 8 mmol/L [facility] Creatinine [Mass/Vol] 0.80 mg/dL 0.80 - 1.30 [facility] GFR/1.73 sq M.predicted CKD-EPI (S/P/Bld) [Vol rate/Area] 96 >=60 mL/min/1.73 m2 [facility] Glucose [Mass/Vol] 207 mg/dL High 65 - 99 mg/dL [facility] HCO3 [Moles/Vol] 23 mmol/L 21 - 32 mmol/L [facility] Interpretation and review of laboratory results Abnormal [facility] Potassium [Moles/Vol] 4.2 mmol/L 3.5 - 5.1 mmol/L [facility] Protein [Mass/Vol] 6.3 g/dL 6.0 - 8.0 g/dL [facility] Sodium [Moles/Vol] 133 mmol/L Low 135 - 145 mmol/L [facility] Urea nitrogen [Mass/Vol] 19 mg/dL 8 - 25 mg/dL [facility] Urea nitrogen/Creatinine [Mass ratio] 23.8 mg/mg High [facility] The eGFR should be u sed for monitoring renal function only and not for medication dosing. [facility] Drugs of Abuse Screen, Urine on 08-20-2021 Amphetamines Ql (U) Not detected None Detected [facility] Comment on above: Urine Amphetamine Cu toff: < 1000 ng/mL = None Detected Barbiturates Screen Ql (U) Not detected None Detected [facility] Comment on above: Urine Barbiturates C utoff: < 200 ng/mL = None Detected Benzodiazepines Ql (U) Not detected None Detected [facility] Comment on above: Urine Benzodiazepine Cutoff: < 200 ng/mL = None Detected Buprenorphine Ql (U) Positive Abnormal None Detected [facility] Comment on above: Urine Buprenorphine Cutoff: < 5 ng/mL = None Detected Cannabinoids Screen Ql (U) Not detected None Detected [facility] Comment on above: Urine Cannabinoids C utoff: < 50 ng/mL = None Detected Cocaine Ql (U) Not detected None Detected [facility] Comment on above: Urine Cocaine Cutoff : < 300 ng/mL = None Detected fentaNYL+Norfentanyl Screen Ql (U) Not detected None Detected [facility] Comment on above: Urine Fentanyl Cutof f: < 1 ng/mL = None Detected Interpretation and review of laboratory results Abnormal [facility] Methadone Screen Ql (U) Not detected None Detected [facility] Comment on above: Urine Methadone Cuto ff: < 300 ng/mL = None Detected Opiates Screen Ql (U) Not detected None Detecte d [facility] Comment on above: Urine Opiates [...] by calling the lab within 2 weeks. [facility] ECG 12 Leadon 08-20-2021 Atrial Rate 120 BPM [facility] P [place] 84 degrees [facility] P-R Interval 148 ms [facility] Q-T Interval 312 ms [facility] QRS Duration 90 ms [facility] QTC Calculation (Bezet) 440 ms [facility] R [place] 70 degrees [facility] T [place] 69 degrees [facility] Ventricular Rate 120 BPM [facility] Sinus tachycardia Anterior infarct (cited on or before 13-DEC-2020) Abnormal ECG When compared with ECG of 24-MAY-2021 10:55, No significant change was found Confirmed by Physician, ED ([id number]), non linear editor CARMEN FLEMING ([id number]) on 08/20/2021 9:32:34 AM MUSE [facility] HbA1c (Bld) [Mass fraction]o n 08-20-2021 Average glucose Estimated from glycated hemoglobin (Bld) [Mass/Vol] 108 mg/dL 74 - 114 mg/dL [facility] Interpretation and review of laboratory results Normal [facility] Hemoglobin A1con 08-20-2021 HbA1c (Bld) [Mass fraction] 5.4 % 4.2 - 5.6 % [facility] INR Coag (PPP) [Relative marlen e]on 08-20-2021 Interpretation and review of laboratory results Normal [facility] PT Coag (PPP) [Time] 14.3 s [facility] During the induction phase of oral anticoagulation, the INR may not reflect the anticoagulation status of the patient. Therapeutic ranges for INR's are: Most clinical situations: INR 2.0-3.0 Mechanical Prosthetic Valve: INR 2.5-3.5 Critical: INR >5.0 [facility] Magnesiumon 08-20-2021 Magnesium [Mass/Vol] 2.1 mg/dL 1.6 - 2 .4 mg/dL [facility] Magnesium [Mass/Vol]on 08-20 Interpretation and review of laboratory results Normal [facility] No Panel Informationon 08-20 [facility] PT/INRon 08-20-2021 INR Coag (PPP) [Relative time] 1.1 {INR} [facility] Phosphate [Mass/Vol]on 08-20 Interpretation and review of laboratory results Normal [facility] Phosphoruson 08-20-2021 Phosphate [Mass/Vol] 2.4 mg/dL 2.3 - 3 .7 mg/dL [facility] S. pneumoniae Urine AntigenO rdered By: Mirta Jorge on 08-20-2021 Interpretation and review of laboratory results Normal [facility] S. pneumoniae Ag Ql (U) Negative Presumptive Negative for Pneumococcal pneumoniae [facility] Comment on above: A negative result rice ggests no current or recent pneumococcal infection. A negative result does not rule out Streptococcus pneumoniae infection since the antigen present in the sample may be below the detection limit of the test. [facility] TSH DL <= 0.005 mIU/L QnOrde red By: Zi Locke on 08-20-2021 Interpretation and review of laboratory results Normal [facility] TSH Qn 0.45 m[IU]/L [facility] Basic metabolic 2000 panelon 08-19-2021 Anion gap [Moles/Vol] 15 mmol/L 10 - 2 0 mmol/L [facility] Calcium [Mass/Vol] 9.0 mg/dL 8.4 - 10. 2 mg/dL [facility] Chloride [Moles/Vol] 97 mmol/L Low 98 - 10 8 mmol/L [facility] Creatinine [Mass/Vol] 0.95 mg/dL 0.80 - 1.30 [facility] GFR/1.73 sq M.predicted CKD-EPI (S/P/Bld) [Vol rate/Area] 86 >=60 mL/min/1.73 m2 [facility] Glucose [Mass/Vol] 110 mg/dL High 65 - 99 mg/dL [facility] HCO3 [Moles/Vol] 29 mmol/L 21 - 32 mmol/L [facility] Interpretation and review of laboratory results Abnormal [facility] Potassium [Moles/Vol] 4.1 mmol/L 3.5 - 5.1 mmol/L [facility] Sodium [Moles/Vol] 137 mmol/L 135 - 145 mmol/L [facility] Urea nitrogen [Mass/Vol] 10 mg/dL 8 - 25 mg/dL [facility] Urea nitrogen/Creatinine [Mass ratio] 10.5 mg/mg [facility] The eGFR should be u sed for monitoring renal function only and not for medication dosing. [facility] Blood Gas, Venous with Full PanelOrdered By: Stephanie Christopher on 08-19-2021 Base excess Calc (BldV) [Moles/Vol] 3.5 mmol/L High [facility] Calcium.ionized [Mass/Vol] 4.6 mg/dL 4.5 - 5.3 mg/dL [facility] Carboxyhemoglobin (BldA) [Mass fraction] 2.9 High <=1.5 % of total Hb [facility] Comment on above: Reference Ranges: [place] Non-smokers: <1.5% Smokers: 1.5-5.0% Heavy Smokers: 5.0-9.0% CO2 (BldV) [Partial pressure] 53.7 mm[Hg] High [facility] Glucose [Mass/Vol] 94 mg/dL 65 - 99 mg/dL [facility] HCO3 (Bld) [Moles/Vol] 29.9 mmol/L High 24.0 - 28.0 mmol/L [facility] Hematocrit (BldA) [Volume fraction] 49.0 % 41.0 - 53.0 % [facility] Hemoglobin (Bld) [Mass/Vol] 16.0 g/dL 13.5 - 17.5 g/dL [facility] Interpretation and review of laboratory results Abnormal [facility] Lactate [Moles/Vol] 1.6 mmol/L 0.6 - 2. 0 mmol/L [facility] Methemoglobin (BldA) [Mass fraction] 0.5 % 0.0 - 2.0 % [facility] Oxygen (BldV) [Partial pressure] 36 mm[Hg] [facility] Oxygen saturation in Venous blood 63.1 % 40.0 - 70.0 % [facility] Oxyhemoglobin (BldA) [Mass fraction] 61.0 % No established reference range [facility] pH (BldV) 7.37 [pH] [facility] Potassium [Moles/Vol] 4.1 mmol/L 3.5 - 5.1 mmol/L [facility] Sodium [Moles/Vol] 139 mmol/L 135 - 145 mmol/L [facility] CBC Auto Differentialon 08-06 Basophils (Bld) [#/Vol] 0.11 10*3/uL [facility] Basophils/100 WBC (Bld) 0.5 % [facility] Eosinophils (Bld) [#/Vol] 0.06 10*3/uL [facility] Eosinophils/100 WBC (Bld) 0.3 % [facility] Erythrocyte distribution width (RBC) [Entitic vol] 13.2 % 11.6 - 14.8 % [facility] Hematocrit (Bld) [Volume fraction] 47.5 % 41.0 - 53.0 % [facility] Hemoglobin (Bld) [Mass/Vol] 15.9 g/dL 13.5 - 17.5 g/dL [facility] Immature granulocytes (Bld) [#/Vol] 0.23 10*3/uL [facility] Immature granulocytes/100 WBC (Bld) 1.00 % [facility] Comment on above: The IG parameter is the percentage of metamyelocytes, myelocytes and promyelocytes. An immature granulocyte count (IG) of 1% or more suggests the possibility of infection, an IG count of 3% is very likely related to an infection. Interpretation and review of laboratory results Abnormal [facility] Lymphocytes (Bld) [#/Vol] 1.36 10*3/uL [facility] Lymphocytes/100 WBC (Bld) 6.1 % [facility] MCH (RBC) [Entitic mass] 32.1 pg 26.0 - 34.0 pg [facility] MCHC (RBC) [Mass/Vol] 33.5 g/dL 31.0 - 37.0 g/dL [facility] MCV (RBC) [Entitic vol] 96.0 fL 80.0 - 100.0 fL [facility] Monocytes (Bld) [#/Vol] 1.31 10*3/uL High [facility] Monocytes/100 WBC (Bld) 5.8 % [facility] Neutrophils (Bld) [#/Vol] 19.36 10*3/uL [facility] Neutrophils/100 WBC (Bld) 86.3 % [facility] Nucleated RBC (Bld) [#/Vol] 0.00 10*3/uL [facility] Nucleated RBC/100 WBC (Bld) [Ratio] 0.0 % [facility] Platelet mean volume (Bld) [Entitic vol] 8.9 fL Low 9.4 - 12.4 fL [facility] Platelets (Bld) [#/Vol] 346 10*3/uL [facility] RBC (Bld) [#/Vol] 4.95 10*6/uL [facility] WBC (Bld) [#/Vol] 22.43 10*3/uL [facility] COVID-19, MolecularOrdered B y: Lorena Metcalf on 08-19-2021 SARS-CoV-2 (COVID-19) RNA MMOO+probe Ql (Resp) Not detected Not Detected [facility] CT Pulmonary Arterieson 08-06 No evidence of pulmonary embolism. Extensive diffuse centrilobular pulmonary emphysema. Mild areas of patchy opacities are noted in the left mid to lower lung which could represent areas of fibrosis, less likely infectious/inflammatory process. Workstation ID: [id number] NGRAIN [facility] EXAMINATION: CTA OF THE CHEST 08/19/2021 TECHNIQUE: [...] exacerbation of chronic obstructive pulmonary disease (COPD) ([facility]) J96.01 Acute respiratory failure with hypoxia ([facility]) R00.0 Tachycardia FINDINGS: Pulmonary Arteries: [...] No acute bone or soft tissue abnormality. NGRAIN Shakira Win MD - 08/19/2021 EXAMINATION: CTA [...] exacerbation of chronic obstructive pulmonary disease (COPD) ([facility]) J96.01 Acute respiratory failure with hypoxia ([facility]) R00.0 Tachycardia FINDINGS: Pulmonary Arteries: [...] less likely infectious/inflammatory process. Workstation ID: [id number] [facility] Radiology Study observation (narrative) [facility] CT Pulmonary ArteriesOrdered By: Shakira Albrecht on 08-19-2021 [facility] Work Phone: D-Dimer, QuantitativeOrdered By: Elpidio Eisenberg on 08-19-2021 Fibrin D-dimer FEU (PPP) [Mass/Vol] 0.54 High 0.27 - 0.49 mcg/mL FEU [facility] Interpretation and review of laboratory results Abnormal [facility] A D-dimer concentrat ion of <0.5 micrograms per milliliter FEU is considered a low probability for pulmonary embolus (PE) and deep venous thrombosis (DVT). Results of this test should always be interpreted in conjunction with the patient's medical history,clinical presentation, and other findings. Clinical diagnosis should not be based on the results of the D-dimer alone. [facility] EKG 12-leadon 08-19-2021 Interpretation and review of laboratory results Abnormal [facility] Paige Perla MD 08/19/2021 5:32 PM EKG 12-lead Date/Time: 08/19/2021 5:32 PM Performed by: Paige Perla MD Authorized by: Zoe Moreira CNP Interpreted by ED attending physician Rhythm: sinus rhythm and sinus tachycardia BPM: 120 Conduction: conduction normal ST Segments: ST segments normal T Flattening: I and V2 Clinical impression: abnormal ECG and sinus tachycardia [facility] Munoz Topon 08-19-2021 Extra Tube Hold for add-ons. [facility] Comment on above: Auto resulted. [facility] NT Pro BNPon 08-19-2021 Natriuretic peptide.B prohormone N-Terminal [Mass/Vol] 67 pg/mL 0 - 300 pg/mL [facility] Natriuretic peptide.B prohor mary N-Terminal [Mass/Vol]on 08-19-2021 Interpretation and review of laboratory results Normal [facility] Pride Study Cut-offs Rule In: < /= 50 Years >450 pg/mL 51 Years - 75 Years >900 pg/mL 76 Years - 99 Years >1800 pg/mL Rule Out: All patients <300 pg/mL [facility] No Panel Informationon 08-19 Extra Tube Hold for add-ons. [facility] Comment on above: Auto resulted. [facility] Extra Tube Hold for add-ons. [facility] Comment on above: Auto resulted. [facility] SARS-CoV-2 (COVID-19) RNA NA A+probe Ql (Resp)Ordered By: Lorena Metcalf on 08-19-2021 Interpretation and review of laboratory results Normal [facility] This test was perfor med [...] the following links: For Healthcare Providers: https://www.fda.gov/media /571750/download For Patients: https://www.fda.gov/media /401104/download [facility] Troponinon 08-19-2021 Troponin T 15 ng/L <=22 [facility] Troponin T Interpretation Normal [facility] Troponin Onceon 08-19-2021 Delta Difference Troponin T -4 ng/L < = -/+ 7 change [facility] Interp Troponin T Delta Change No biomarker evidence of cardiac injury. [facility] Troponin T 11 ng/L <=22 [facility] XR Chest 1 Viewon 08-19-2021 1. No acute cardiopulmonary process identified. Workstation ID: [id number] GE RIS EXAMINATION: ONE XRAY VIEW OF [...] No acute cardiopulmonary process identified. Workstation ID: [id number] [facility] Radiology Study observation (narrative) [facility] XR Chest 1 ViewOrdered By: Casey Mercedes on 08-19-2021 [facility] Work Phone: AIRWAY ETTon 01-28-2021 [...] tape Bite block: soft Lip/tooth/tongue trauma: no [facility] SPINAL BLOCKon 01-28-2021 George Fam [...] timeout performed Procedure Monitoring: heart rate, cardiac catheterization technologist, pulse oximetry and BP Patient sedated with [...] the procedure well with no immediate complications [facility] MRSA Culture/ScreenOrdered B y: Simba Christina on 01-16-2021 MRSA isol Org specific cx Ql (Unsp spec) Heavy Growth Staphylococcus aureus Abnormal [facility] MRSA isol Org specific cx Ql (Unsp spec)Ordered By: Simba Christina on 01-16-2021 Interpretation and review of laboratory results Abnormal [facility] APTTon 01-14-2021 aPTT Coag (Bld) [Time] 29 s [facility] Albuminon 01-14-2021 Albumin [Mass/Vol] 4.1 g/dL 3.2 - 5.2 g/dL [facility] Albumin [Mass/Vol]on 021 Interpretation and review of laboratory results Normal [facility] Basic metabolic 2000 panelon 01-14-2021 Anion gap [Moles/Vol] 14 mmol/L 10 - 2 0 mmol/L [facility] Calcium [Mass/Vol] 9.0 mg/dL 8.4 - 10. 2 mg/dL [facility] Chloride [Moles/Vol] 97 mmol/L Low 98 - 10 8 mmol/L [facility] Creatinine [Mass/Vol] 0.76 mg/dL 0.50 - 1.30 [facility] GFR/1.73 sq M.predicted CKD-EPI (S/P/Bld) [Vol rate/Area] 99 >=60 mL/min/1.73 m2 [facility] Glucose [Mass/Vol] 114 mg/dL High 65 - 99 mg/dL [facility] [Moles/Vol] 29 mmol/L 21 - 32 mmol/L [facility] Potassium [Moles/Vol] 3.5 mmol/L 3.5 - 5.1 mmol/L [facility] Sodium [Moles/Vol] 136 mmol/L 135 - 145 mmol/L [facility] Urea nitrogen [Mass/Vol] 9 mg/dL 8 - 25 mg/dL [facility] Urea nitrogen/Creatinine [Mass ratio] 11.8 mg/mg [facility] The eGFR should be u sed for monitoring renal function only and not for medication dosing. [facility] Blood type and Indirect anti body screen panel (Bld)on 01-14-2021 ABO and Rh group Nom (Bld) Blood group A Rh(D) negative [facility] Blood group antibody screen Ql Negative [facility] Specimen Expires 02/01/2021 23:59 EST [facility] CBC WITH AUTO DIFFERENTIALon 01-14-2021 Basophils (Bld) [#/Vol] 0.07 10*3/uL [facility] Basophils/100 WBC (Bld) 0.9 % [facility] Eosinophils (Bld) [#/Vol] 0.64 10*3/uL High [facility] Eosinophils/100 WBC (Bld) 8.7 % [facility] Erythrocyte distribution width (RBC) [Entitic vol] 13.3 % 11.6 - 14.8 % [facility] Hematocrit (Bld) [Volume fraction] 44.5 % 41.0 - 53.0 % [facility] Hemoglobin (Bld) [Mass/Vol] 14.5 g/dL 13.5 - 17.5 g/dL [facility] Immature granulocytes (Bld) [#/Vol] 0.01 10*3/uL [facility] Immature granulocytes/100 WBC (Bld) 0.10 % [facility] Comment on above: The IG parameter is the percentage of metamyelocytes, myelocytes and promyelocytes. An immature granulocyte count (IG) of 1% or more suggests the possibility of infection, an IG count of 3% is very likely related to an infection. Interpretation and review of laboratory results Abnormal [facility] Lymphocytes (Bld) [#/Vol] 1.93 10*3/uL [facility] Lymphocytes/100 WBC (Bld) 26.1 % [facility] MCH (RBC) [Entitic mass] 31.5 pg 26.0 - 34.0 pg [facility] MCHC (RBC) [Mass/Vol] 32.6 g/dL 31.0 - 37.0 g/dL [facility] MCV (RBC) [Entitic vol] 96.7 fL 80.0 - 100.0 fL [facility] Monocytes (Bld) [#/Vol] 0.70 10*3/uL [facility] Monocytes/100 WBC (Bld) 9.5 % [facility] Neutrophils (Bld) [#/Vol] 4.04 10*3/uL [facility] Neutrophils/100 WBC (Bld) 54.7 % [facility] Nucleated RBC (Bld) [#/Vol] 0.00 10*3/uL [facility] Nucleated RBC/100 WBC (Bld) [Ratio] 0.0 % [facility] Platelet mean volume (Bld) [Entitic vol] 9.1 fL Low 9.4 - 12.4 fL [facility] Platelets (Bld) [#/Vol] 253 10*3/uL [facility] RBC (Bld) [#/Vol] 4.60 10*6/uL [facility] WBC (Bld) [#/Vol] 7.39 10*3/uL [facility] eah [facility] CRP, Inflammationon 01-15-20 CRP [Mass/Vol] 15.5 mg/L High 0.0 - 10.0 mg/L [facility] ESR Westergren method (Bld) [Velocity]Ordered By: Brent Silva on 01-14-2021 ESR (Bld) [Velocity] 15 mm/h [facility] Interpretation and review of laboratory results Normal [facility] INR Coag (PPP) [Relative marlen e]on 01-14-2021 PT Coag (PPP) [Time] 12.7 s [facility] During the induction phase of oral anticoagulation, the INR may not reflect the anticoagulation status of the patient. Therapeutic ranges for INR's are: Most clinical situations: INR 2.0-3.0 Mechanical Prosthetic Valve: INR 2.5-3.5 Critical: INR >5.0 [facility] No Panel Informationon 01-14 Interpretation and review of laboratory results Abnormal [facility] Interpretation and review of laboratory results Normal [facility] PT/INRon 01-14-2021 INR Coag (PPP) [Relative time] 1.0 {INR} [facility] aPTT Coag (Bld) [Time]on Therapeutic range fo r APTT's is 68 - 104 seconds [facility] BLOOD GAS, VBG WITH FULL WILLARD ELOrdered By: Ugo Ochoa on 12-13-2020 Base excess Calc (BldV) [Moles/Vol] 4.8 mmol/L High [facility] Calcium.ionized [Mass/Vol] 4.3 mg/dL Low 4.5 - 5.3 mg/dL [facility] Carboxyhemoglobin (BldA) [Mass fraction] 7.0 High <=1.5 % of total Hb [facility] Comment on above: Reference Ranges: Suburban Non-smokers: <1.5% Smokers: 1.5-5.0% Heavy Smokers: 5.0-9.0% CO2 (BldV) [Partial pressure] 42.3 mm[Hg] [facility] Glucose [Mass/Vol] 139 mg/dL High 65 - 99 mg/dL [facility] HCO3 (Bld) [Moles/Vol] 28.9 mmol/L High 24.0 - 28.0 mmol/L [facility] Hematocrit (BldA) [Volume fraction] 42.2 % 41.0 - 53.0 % [facility] Hemoglobin (Bld) [Mass/Vol] 13.7 g/dL 13.5 - 17.5 g/dL [facility] Interpretation and review of laboratory results Abnormal [facility] Lactate [Moles/Vol] 2.4 mmol/L High 0.6 - 2. 0 mmol/L [facility] Methemoglobin (BldA) [Mass fraction] 0.5 % 0.0 - 2.0 % [facility] Oxygen (BldV) [Partial pressure] 58 mm[Hg] High [facility] Oxygen saturation in Venous blood 92.7 % High 40.0 - 70.0 % [facility] Oxyhemoglobin (BldA) [Mass fraction] 85.7 % No established reference range [facility] pH (BldV) 7.45 [pH] High [facility] Potassium [Moles/Vol] 3.7 mmol/L 3.5 - 5.1 mmol/L [facility] Sodium [Moles/Vol] 138 mmol/L 135 - 145 mmol/L [facility] Type of Oxygen saturation device Unknown [facility] Basic metabolic 1998 panelOr dered By: Ugo Ochoa on 07-08-2021 Anion gap [Moles/Vol] 16 mmol/L 10 - 2 0 mmol/L [facility] Chloride [Moles/Vol] 100 mmol/L 98 - 10 8 mmol/L [facility] Creatinine [Mass/Vol] 0.74 mg/dL 0.50 - 1.30 [facility] GFR/1.73 sq M.predicted CKD-EPI (S/P/Bld) [Vol rate/Area] 100 >=60 mL/min/1.73 m2 [facility] Glucose [Mass/Vol] 135 mg/dL High 65 - 99 mg/dL [facility] HCO3 [Moles/Vol] 26 mmol/L 21 - 32 mmol/L [facility] Interpretation and review of laboratory results Abnormal [facility] Potassium [Moles/Vol] 3.2 mmol/L Low 3.5 - 5.1 mmol/L [facility] Sodium [Moles/Vol] 139 mmol/L 135 - 145 mmol/L [facility] Urea nitrogen [Mass/Vol] 7 mg/dL Low 8 - 25 mg/dL [facility] Urea nitrogen/Creatinine [Mass ratio] 9.5 mg/mg Low [facility] The eGFR should be u sed for monitoring renal function only and not for medication dosing. [facility] CBC WITH AUTO DIFFERENTIALOr dered By: Ugo Ochoa on 12-13-2020 Basophils (Bld) [#/Vol] 0.05 10*3/uL [facility] Basophils/100 WBC (Bld) 0.9 % [facility] Eosinophils (Bld) [#/Vol] 0.31 10*3/uL [facility] Eosinophils/100 WBC (Bld) 5.7 % [facility] Erythrocyte distribution width (RBC) [Entitic vol] 13.2 % 11.6 - 14.8 % [facility] Hematocrit (Bld) [Volume fraction] 40.8 % Low 41.0 - 53.0 % [facility] Hemoglobin (Bld) [Mass/Vol] 13.8 g/dL 13.5 - 17.5 g/dL [facility] Immature granulocytes (Bld) [#/Vol] 0.01 10*3/uL [facility] Immature granulocytes/100 WBC (Bld) 0.20 % [facility] Comment on above: The IG parameter is the percentage of metamyelocytes, myelocytes and promyelocytes. An immature granulocyte count (IG) of 1% or more suggests the possibility of infection, an IG count of 3% is very likely related to an infection. Interpretation and review of laboratory results Abnormal [facility] Lymphocytes (Bld) [#/Vol] 1.40 10*3/uL [facility] Lymphocytes/100 WBC (Bld) 25.8 % [facility] MCH (RBC) [Entitic mass] 31.8 pg 26.0 - 34.0 pg [facility] MCHC (RBC) [Mass/Vol] 33.8 g/dL 31.0 - 37.0 g/dL [facility] MCV (RBC) [Entitic vol] 94.0 fL 80.0 - 100.0 fL [facility] Monocytes (Bld) [#/Vol] 0.50 10*3/uL [facility] Monocytes/100 WBC (Bld) 9.2 % [facility] Neutrophils (Bld) [#/Vol] 3.16 10*3/uL [facility] Neutrophils/100 WBC (Bld) 58.2 % [facility] Nucleated RBC (Bld) [#/Vol] 0.00 10*3/uL [facility] Nucleated RBC/100 WBC (Bld) [Ratio] 0.0 % [facility] Platelet mean volume (Bld) [Entitic vol] 10.0 fL 9.4 - 12.4 fL [facility] Platelets (Bld) [#/Vol] 222 10*3/uL [facility] RBC (Bld) [#/Vol] 4.34 10*6/uL Low [facility] ealt WBC (Bld) [#/Vol] 5.43 10*3/uL [facility] eah [facility] ECG 12-LEADOrdered By: Cardi ologist Generic on 12-13-2020 Atrial Rate 93 BPM [facility] P [place] 79 degrees [facility] P-R Interval 166 ms [facility] Q-T Interval 362 ms [facility] QRS Duration 108 ms [facility] QTC Calculation (Bezet) 450 ms [facility] R [place] 52 degrees [facility] T [place] 79 degrees [facility] Ventricular Rate 93 BPM [facility] th Normal sinus rhythm Septal infarct , age undetermined Abnormal ECG When compared with ECG of 21-SEP-2020 11:16, Septal infarct is now Present Confirmed by Physician, ED ([id number]), non linear editor CRAMEN FLEMING ([id number]) on 12/13/2020 12:49:33 PM [facility] EKGOrdered By: Provider Syst em on 12-13-2020 Ordered by an unspec ified provider. [facility] INR Coag (PPP) [Relative marlen e]Ordered By: Ugo Ochoa on 12-13-2020 Interpretation and review of laboratory results Normal [facility] PT Coag (PPP) [Time] 11.9 s [facility] During the induction phase of oral anticoagulation, the INR may not reflect the anticoagulation status of the patient. Therapeutic ranges for INR's are: Most clinical situations: INR 2.0-3.0 Mechanical Prosthetic Valve: INR 2.5-3.5 Critical: INR >5.0 [facility] Obtain venous blood gases an d performOrdered By: Ugo Ochoa on 12-13-2020 [facility] PT/INROrdered By: Ugo palumbo on 12-13-2020 INR Coag (PPP) [Relative time] 0.9 {INR} [facility] SARS-CoV-2 (COVID-19) RdRp g ulices MOMO+probe Ql (Resp)Ordered By: Kvng Baker on 12-13-2020 Interpretation and review of laboratory results Normal [facility] SARS-CoV-2 (COVID-19) RNA MOMO+probe Ql (Resp) Not detected Not Detected [facility] This test was perfor med [...] the following links: For Healthcare Providers: https://www.fda.gov/media /272003/download For Patients: https://www.fda.gov/media /099389/download [facility] XR Chest 1 ViewOrdered By: Duran Ochoa on 12-13-2020 1. No obvious radiop aque foreign body. 2. Elevated right hemidiaphragm with chronic right basilar opacity. 3. Improved aeration of the left lung since the prior exam. Workstation ID: [id number] [facility] EXAMINATION: ONE XRAY VIEW OF [...] are unchanged. The bones are grossly intact. [facility], Rad In Fu ji Speechq - [...] since the prior exam. Workstation ID: [id number] [facility] XR Hip Right 2-3 Views (Rout ine)Ordered By: Triage Emergency on 10-03-2020 No acute abnormality of the right hip. Severe osteoarthritic changes of the right hip joint which appears slightly increased. Workstation ID: [id number] [facility] EXAMINATION: TWO XRA Y VIEWS [...] subchondral sclerosis. No acute fracture. No dislocation. [facility] Interface, Rad In Fu ji [...] which appears slightly increased. Workstation ID: [id number] [facility] BLOOD GAS, VBG WITH FULL WILLARD ELOrdered By: Ugo Ochoa on 09-21-2020 Base excess Calc (BldV) [Moles/Vol] 3.9 mmol/L High [facility] Calcium.ionized [Mass/Vol] 4.8 mg/dL 4.5 - 5.3 mg/dL [facility] Carboxyhemoglobin (BldA) [Mass fraction] 2.7 High <=1.5 % of total Hb [facility] Comment on above: Reference Ranges: [place] Non-smokers: <1.5% Smokers: 1.5-5.0% Heavy Smokers: 5.0-9.0% CO2 (BldV) [Partial pressure] 58.5 mm[Hg] High [facility] Glucose [Mass/Vol] 100 mg/dL High 65 - 99 mg/dL [facility] HCO3 (Bld) [Moles/Vol] 30.9 mmol/L High 24.0 - 28.0 mmol/L [facility] Hematocrit (BldA) [Volume fraction] 45.6 % 41.0 - 53.0 % [facility] Hemoglobin (Bld) [Mass/Vol] 14.9 g/dL 13.5 - 17.5 g/dL [facility] Interpretation and review of laboratory results Abnormal [facility] Lactate [Moles/Vol] 1.2 mmol/L 0.6 - 2. 0 mmol/L [facility] Methemoglobin (BldA) [Mass fraction] 0.3 % 0.0 - 2.0 % [facility] Oxygen (BldV) [Partial pressure] 33 mm[Hg] [facility] Oxygen saturation in Venous blood 59.3 % 40.0 - 70.0 % [facility] Oxyhemoglobin (BldA) [Mass fraction] 57.5 % No established reference range [facility] pH (BldV) 7.34 [pH] [facility] Potassium [Moles/Vol] 3.7 mmol/L 3.5 - 5.1 mmol/L [facility] Sodium [Moles/Vol] 141 mmol/L 135 - 145 mmol/L [facility] Basic metabolic 2000 panelOr dered By: Laci Johnson on 09-21-2020 Anion gap [Moles/Vol] 11 mmol/L 10 - 2 0 mmol/L [facility] Calcium [Mass/Vol] 8.8 mg/dL 8.4 - 10. 2 mg/dL [facility] Chloride [Moles/Vol] 101 mmol/L 98 - 10 8 mmol/L [facility] Creatinine [Mass/Vol] 0.72 mg/dL 0.50 - 1.30 [facility] GFR/1.73 sq M.predicted CKD-EPI (S/P/Bld) [Vol rate/Area] 101 >=60 mL/min/1.73 m2 [facility] Glucose [Mass/Vol] 111 mg/dL High 65 - 99 mg/dL [facility] HCO3 [Moles/Vol] 29 mmol/L 21 - 32 mmol/L [facility] Interpretation and review of laboratory results Abnormal [facility] Potassium [Moles/Vol] 3.6 mmol/L 3.5 - 5.1 mmol/L [facility] Sodium [Moles/Vol] 137 mmol/L 135 - 145 mmol/L [facility] Urea nitrogen [Mass/Vol] 10 mg/dL 8 - 25 mg/dL [facility] Urea nitrogen/Creatinine [Mass ratio] 13.9 mg/mg [facility] The eGFR should be u sed for monitoring renal function only and not for medication dosing. [facility] CBC WITH AUTO DIFFERENTIALOr dered By: Laci Johnson on 09-21-2020 Basophils (Bld) [#/Vol] 0.07 10*3/uL [facility] Basophils/100 WBC (Bld) 0.9 % [facility] Eosinophils (Bld) [#/Vol] 0.83 10*3/uL High [facility] Eosinophils/100 WBC (Bld) 10.8 % [facility] Erythrocyte distribution width (RBC) [Entitic vol] 13.3 % 11.6 - 14.8 % [facility] Hematocrit (Bld) [Volume fraction] 43.7 % 41.0 - 53.0 % [facility] Hemoglobin (Bld) [Mass/Vol] 14.2 g/dL 13.5 - 17.5 g/dL [facility] Immature granulocytes (Bld) [#/Vol] 0.02 10*3/uL [facility] Immature granulocytes/100 WBC (Bld) 0.30 % [facility] Comment on above: The IG parameter is the percentage of metamyelocytes, myelocytes and promyelocytes. An immature granulocyte count (IG) of 1% or more suggests the possibility of infection, an IG count of 3% is very likely related to an infection. Interpretation and review of laboratory results Abnormal [facility] Lymphocytes (Bld) [#/Vol] 1.25 10*3/uL [facility] Lymphocytes/100 WBC (Bld) 16.3 % [facility] MCH (RBC) [Entitic mass] 30.7 pg 26.0 - 34.0 pg [facility] MCHC (RBC) [Mass/Vol] 32.5 g/dL 31.0 - 37.0 g/dL [facility] MCV (RBC) [Entitic vol] 94.6 fL 80.0 - 100.0 fL [facility] Monocytes (Bld) [#/Vol] 0.55 10*3/uL [facility] Monocytes/100 WBC (Bld) 7.2 % [facility] Neutrophils (Bld) [#/Vol] 4.93 10*3/uL [facility] Neutrophils/100 WBC (Bld) 64.5 % [facility] Nucleated RBC (Bld) [#/Vol] 0.00 10*3/uL [facility] Nucleated RBC/100 WBC (Bld) [Ratio] 0.0 % [facility] Platelet mean volume (Bld) [Entitic vol] 8.7 fL Low 9.4 - 12.4 fL [facility] Platelets (Bld) [#/Vol] 289 10*3/uL [facility] RBC (Bld) [#/Vol] 4.62 10*6/uL [facility] WBC (Bld) [#/Vol] 7.65 10*3/uL [facility] COVID-19/Influenza A,B Molec ularOrdered By: Lcai Johnson on 09-21-2020 SARS-CoV-2 (COVID-19) RNA MOMO+probe Ql (Resp) Not detected Not Detected [facility] ECG 12-LEADOrdered By: Ugo Ochoa [...] T waves normal Clinical impression: normal ECG [facility] ECG 12-LEADOrdered By: Miguel ologist Mendoza on 09-21-2020 Atrial Rate 99 BPM [facility] P [place] 82 degrees [facility] P-R Interval 150 ms [facility] Q-T Interval 346 ms [facility] QRS Duration 96 ms [facility] QTC Calculation (Bezet) 444 ms [facility] R [place] 74 degrees [facility] T [place] 73 degrees [facility] Ventricular Rate 99 BPM [facility] Normal sinus rhythm Normal ECG When compared with ECG of 13-AUG-2020 06:14, QRS axis Shifted left Confirmed by Physician, ED ([id number]), non linear editor CARMEN FLEMING ([id number]) on 09/21/2020 1:52:25 PM [facility] NT Pro BNPOrdered By: Laci Johnson on 09-21-2020 Natriuretic peptide.B prohormone N-Terminal [Mass/Vol] <50 0 - 300 pg/mL [facility] Natriuretic peptide.B prohor mary N-Terminal [Mass/Vol]Ordered By: Laci Johnson on 09-21-2020 Interpretation and review of laboratory results Normal [facility] Pride Study Cut-offs Rule In: < /= 50 Years >450 pg/mL 51 Years - 75 Years >900 pg/mL 76 Years - 99 Years >1800 pg/mL Rule Out: All patients <300 pg/mL [facility] No Panel InformationOrdered By: Ugo Ochoa on 09-21-2020 Extra Tube Hold for add-ons. [facility] Comment on above: Auto resulted. SARS-CoV-2 (COVID-19) RNA NA A+probe Ql (Resp)Ordered By: Laci Johnson on 09-21-2020 Influenza [facility] Not detected [facility]ed [facility] Influ[facility] B Not detected [facility] Interpretation and review of laboratory results Normal [facility] This test was perfor med [...] the following links: For Healthcare Providers: https://www.fda.gov/media /551198/download For Patients: https://www.fda.gov/media /507361/download [facility] TROPONINOrdered By: Laci gustafson on 09-21-2020 Troponin T 12 ng/L <=22 [facility] Troponin T Interpretation Normal [facility] Basic Metabolic Panelon 03- Anion gap [Moles/Vol] 12 mmol/L 10 - 2 0 mmol/L [facility] Calcium [Mass/Vol] 8.6 mg/dL 8.4 - 10. 2 mg/dL [facility] Chloride [Moles/Vol] 102 mmol/L 98 - 10 8 mmol/L [facility] Creatinine [Mass/Vol] 0.53 mg/dL 0.50 - 1.30 [facility] GFR/1.73 sq M predicted among non-blacks MDRD (S/P/Bld) [Vol rate/Area] The eGFR should be used for monitoring renal function only and not for medication dosing. [facility] GFR/1.73 sq M.predicted CKD-EPI (S/P/Bld) [Vol rate/Area] 115 >=60 mL/min/1.73 m2 [facility] Glucose [Mass/Vol] 108 mg/dL High 65 - 99 mg/dL [facility] [Moles/Vol] 27 mmol/L 21 - 32 mmol/L [facility] Interpretation and review of laboratory results Abnormal [facility] Potassium [Moles/Vol] 3.7 mmol/L 3.5 - 5.1 mmol/L [facility] Sodium [Moles/Vol] 137 mmol/L 135 - 145 mmol/L [facility] Urea nitrogen [Mass/Vol] 13 mg/dL 8 - 25 mg/dL [facility] Urea nitrogen/Creatinine [Mass ratio] 24.5 mg/mg High [facility] CBC WITH AUTO DIFFERENTIALon 08-13-2020 Basophils (Bld) [#/Vol] 0.02 10*3/uL [facility] Basophils/100 WBC (Bld) 0.3 % [facility] Eosinophils (Bld) [#/Vol] 0.19 10*3/uL [facility] Eosinophils/100 WBC (Bld) 2.4 % [facility] Erythrocyte distribution width (RBC) [Entitic vol] 13.0 % 11.6 - 14.8 % [facility] Hematocrit (Bld) [Volume fraction] 36.7 % Low 41.0 - 53.0 % [facility] Hemoglobin (Bld) [Mass/Vol] 11.8 g/dL Low 13.5 - 17.5 g/dL [facility] Immature granulocytes (Bld) [#/Vol] 0.06 10*3/uL [facility] Immature granulocytes/100 WBC (Bld) 0.80 % [facility] Comment on above: The IG parameter is the percentage of metamyelocytes, myelocytes and promyelocytes. An immature granulocyte count (IG) of 1% or more suggests the possibility of infection, an IG count of 3% is very likely related to an infection. Interpretation and review of laboratory results Abnormal [facility] Lymphocytes (Bld) [#/Vol] 1.42 10*3/uL [facility] Lymphocytes/100 WBC (Bld) 18.0 % [facility] MCH (RBC) [Entitic mass] 31.0 pg 26.0 - 34.0 pg [facility] MCHC (RBC) [Mass/Vol] 32.2 g/dL 31.0 - 37.0 g/dL [facility] MCV (RBC) [Entitic vol] 96.3 fL 80.0 - 100.0 fL [facility] Monocytes (Bld) [#/Vol] 1.06 10*3/uL High [facility] Monocytes/100 WBC (Bld) 13.4 % [facility] Neutrophils (Bld) [#/Vol] 5.14 10*3/uL [facility] Neutrophils/100 WBC (Bld) 65.1 % [facility] Nucleated RBC (Bld) [#/Vol] 0.00 10*3/uL [facility] Nucleated RBC/100 WBC (Bld) [Ratio] 0.0 % [facility] Platelet mean volume (Bld) [Entitic vol] 9.3 fL Low 9.4 - 12.4 fL [facility] Platelets (Bld) [#/Vol] 275 10*3/uL [facility] RBC (Bld) [#/Vol] 3.81 10*6/uL Low [facility]alth WBC (Bld) [#/Vol] 7.89 10*3/uL [facility] ealt ECG 12-LEADon 08-13-2020 Atrial Rate 97 BPM [facility] P [place] 119 degrees [facility] P-R Interval 144 ms [facility] Q-T Interval 338 ms [facility] QRS Duration 94 ms [facility] QTC Calculation (Bezet) 429 ms [facility] R [place] 128 degrees [facility] T [place] 115 degrees [facility] Ventricular Rate 97 BPM [facility] th Suspect arm lead reversal, interpretation assumes no reversal Normal sinus rhythm Right axis deviation Septal infarct , age undetermined Abnormal ECG When compared with ECG of 10-AUG-2020 10:44, QRS axis Shifted right Septal infarct is now Present Confirmed by NATHALIA BOYER, TAVON ([id number]) on 08/13/2020 2:20:21 PM [facility] Basic Metabolic Panelon Anion gap [Moles/Vol] 14 mmol/L 10 - 2 0 mmol/L [facility] Calcium [Mass/Vol] 9.0 mg/dL 8.4 - 10. 2 mg/dL [facility] Chloride [Moles/Vol] 98 mmol/L 98 - 10 8 mmol/L [facility] Creatinine [Mass/Vol] 0.55 mg/dL 0.50 - 1.30 [facility] GFR/1.73 sq M predicted among non-blacks MDRD (S/P/Bld) [Vol rate/Area] The eGFR should be used for monitoring renal function only and not for medication dosing. [facility] GFR/1.73 sq M.predicted CKD-EPI (S/P/Bld) [Vol rate/Area] 113 >=60 mL/min/1.73 m2 [facility] Glucose [Mass/Vol] 107 mg/dL High 65 - 99 mg/dL [facility] HCO3 [Moles/Vol] 28 mmol/L 21 - 32 mmol/L [facility] Interpretation and review of laboratory results Abnormal [facility] Potassium [Moles/Vol] 3.7 mmol/L 3.5 - 5.1 mmol/L [facility] Sodium [Moles/Vol] 136 mmol/L 135 - 145 mmol/L [facility] Urea nitrogen [Mass/Vol] 10 mg/dL 8 - 25 mg/dL [facility] Urea nitrogen/Creatinine [Mass ratio] 18.2 mg/mg [facility] CBC WITH AUTO DIFFERENTIALon 08-12-2020 Basophils (Bld) [#/Vol] 0.03 10*3/uL [facility] Basophils/100 WBC (Bld) 0.3 % [facility] Eosinophils (Bld) [#/Vol] 0.08 10*3/uL [facility] Eosinophils/100 WBC (Bld) 0.8 % [facility] Erythrocyte distribution width (RBC) [Entitic vol] 12.8 % 11.6 - 14.8 % [facility] Hematocrit (Bld) [Volume fraction] 39.0 % Low 41.0 - 53.0 % [facility] Hemoglobin (Bld) [Mass/Vol] 12.7 g/dL Low 13.5 - 17.5 g/dL [facility] Immature granulocytes (Bld) [#/Vol] 0.04 10*3/uL [facility] Immature granulocytes/100 WBC (Bld) 0.40 % [facility] Comment on above: The IG parameter is the percentage of metamyelocytes, myelocytes and promyelocytes. An immature granulocyte count (IG) of 1% or more suggests the possibility of infection, an IG count of 3% is very likely related to an infection. Interpretation and review of laboratory results Abnormal [facility] Lymphocytes (Bld) [#/Vol] 1.08 10*3/uL [facility] Lymphocytes/100 WBC (Bld) 11.0 % [facility] MCH (RBC) [Entitic mass] 31.3 pg 26.0 - 34.0 pg [facility] MCHC (RBC) [Mass/Vol] 32.6 g/dL 31.0 - 37.0 g/dL [facility] MCV (RBC) [Entitic vol] 96.1 fL 80.0 - 100.0 fL [facility] Monocytes (Bld) [#/Vol] 1.38 10*3/uL High [facility] Monocytes/100 WBC (Bld) 14.0 % [facility] Neutrophils (Bld) [#/Vol] 7.22 10*3/uL High [facility] Neutrophils/100 WBC (Bld) 73.5 % [facility] Nucleated RBC (Bld) [#/Vol] 0.00 10*3/uL [facility] Nucleated RBC/100 WBC (Bld) [Ratio] 0.0 % [facility] Platelet mean volume (Bld) [Entitic vol] 9.5 fL 9.4 - 12.4 fL [facility] Platelets (Bld) [#/Vol] 247 10*3/uL [facility] RBC (Bld) [#/Vol] 4.06 10*6/uL Low [facility] ealth WBC (Bld) [#/Vol] 9.83 10*3/uL [facility] eah Sputum Aerobic Cultureon Bacteria identified Aer cx Nom (Sput) Moderate Growth Staphylococcus aureus Abnormal [facility] Comment on above: This Staphylococcus aureus is Methicillin SUSCEPTIBLE by PBP2a testing. Beta-lactams like Cefazolin and Nafcillin are superior to Vancomycin for treating mSsa. Bacteria identified Aer cx Nom (Sput) Heavy Growth Normal Respiratory Kaleigh [facility] Interpretation and review of laboratory results Abnormal [facility] Microscopic observation Gram stain Nom (Sput) Positive [facility] Microscopic observation Gram stain Nom (Sput) Rare Epithelial Cells [facility] Microscopic observation Gram stain Nom (Sput) Many WBC [facility] Ultrasound duplex venous leg righton 08-12-2020 Patient Info Name: WOLF TURCIOS Age: 60 years : 1960 Gender: Male Exam Date: 08/12/2020 9:37 AM Patient Status: Inpatient Staff Referring Physician: ESAU Huffman; Attending Physician: [facility] Indications - RLE edema, eval DVT Procedure Description 82569 Duplex examination using B-mode, color and spectral [...] So MD, RPVI on 08/12/2020 09:16 PM [facility] Interface, Rad In Heartlab Xper Echopacs - 08/12/2020 9:17 PM EST Patient Info Name: WOLF TURCIOS Age: 60 years : 1960 Gender: Male Exam Date: 08/12/2020 9:37 AM Patient Status: Inpatient Staff Referring Physician: ESAU Huffman; Attending Physician: [facility] Indications - RLE edema, eval DVT Procedure Description [id number] Duplex examination using B-mode, color and spectral [...] So MD, RPVI on 08/12/2020 09:16 PM [facility] BLOOD GAS, VBG WITH FULL WILLARD Jarod 08-11-2020 Base excess Calc (BldV) [Moles/Vol] 3.8 mmol/L High [facility] Calcium.ionized [Mass/Vol] 4.3 mg/dL Low 4.5 - 5.3 mg/dL [facility] Carboxyhemoglobin (BldA) [Mass fraction] 2.9 High <=1.5 % of total Hb [facility] Comment on above: Reference Ranges: [place] Non-smokers: <1.5% Smokers: 1.5-5.0% Heavy Smokers: 5.0-9.0% CO2 (BldV) [Partial pressure] 40.6 mm[Hg] Low [facility] Glucose [Mass/Vol] 99 mg/dL 65 - 99 mg/dL [facility] HCO3 (Bld) [Moles/Vol] 27.6 mmol/L 24.0 - 28.0 mmol/L [facility] Hematocrit (BldA) [Volume fraction] 37.7 % Low 41.0 - 53.0 % [facility] Hemoglobin (Bld) [Mass/Vol] 12.3 g/dL Low 13.5 - 17.5 g/dL [facility] Interpretation and review of laboratory results Abnormal [facility] Lactate [Moles/Vol] 0.8 mmol/L 0.6 - 2. 0 mmol/L [facility] Methemoglobin (BldA) [Mass fraction] 0.3 % 0.0 - 2.0 % [facility] Oxygen (BldV) [Partial pressure] 101 mm[Hg] High [facility] Oxygen saturation in Venous blood 98.2 % High 40.0 - 70.0 % [facility] Oxyhemoglobin (BldA) [Mass fraction] 95.1 % No established reference range [facility] pH (BldV) 7.45 [pH] High [facility] Potassium [Moles/Vol] 3.5 mmol/L 3.5 - 5.1 mmol/L [facility] Sodium [Moles/Vol] 135 mmol/L 135 - 145 mmol/L [facility] Basic Metabolic Panelon Anion gap [Moles/Vol] 14 mmol/L 10 - 2 0 mmol/L [facility] Calcium [Mass/Vol] 8.1 mg/dL Low 8.4 - 10. 2 mg/dL [facility] Chloride [Moles/Vol] 102 mmol/L 98 - 10 8 mmol/L [facility] Creatinine [Mass/Vol] 0.52 mg/dL 0.50 - 1.30 [facility] GFR/1.73 sq M predicted among non-blacks MDRD (S/P/Bld) [Vol rate/Area] The eGFR should be used for monitoring renal function only and not for medication dosing. [facility] GFR/1.73 sq M.predicted CKD-EPI (S/P/Bld) [Vol rate/Area] 116 >=60 mL/min/1.73 m2 [facility] Glucose [Mass/Vol] 86 mg/dL 65 - 99 mg/dL [facility] HCO3 [Moles/Vol] 25 mmol/L 21 - 32 mmol/L [facility] Interpretation and review of laboratory results Abnormal [facility] Potassium [Moles/Vol] 3.7 mmol/L 3.5 - 5.1 mmol/L [facility] Sodium [Moles/Vol] 137 mmol/L 135 - 145 mmol/L [facility] Urea nitrogen [Mass/Vol] 8 mg/dL 8 - 25 mg/dL [facility] Urea nitrogen/Creatinine [Mass ratio] 15.4 mg/mg [facility] CBC WITH AUTO DIFFERENTIALon 08-11-2020 Basophils (Bld) [#/Vol] 0.03 10*3/uL [facility] Basophils/100 WBC (Bld) 0.3 % [facility] Eosinophils (Bld) [#/Vol] 0.54 10*3/uL High [facility] Eosinophils/100 WBC (Bld) 5.9 % [facility] Erythrocyte distribution width (RBC) [Entitic vol] 13.1 % 11.6 - 14.8 % [facility] Hematocrit (Bld) [Volume fraction] 38.3 % Low 41.0 - 53.0 % [facility] Hemoglobin (Bld) [Mass/Vol] 12.4 g/dL Low 13.5 - 17.5 g/dL [facility] Immature granulocytes (Bld) [#/Vol] 0.03 10*3/uL [facility] Immature granulocytes/100 WBC (Bld) 0.30 % [facility] Comment on above: The IG parameter is the percentage of metamyelocytes, myelocytes and promyelocytes. An immature granulocyte count (IG) of 1% or more suggests the possibility of infection, an IG count of 3% is very likely related to an infection. Interpretation and review of laboratory results Abnormal [facility] Lymphocytes (Bld) [#/Vol] 0.89 10*3/uL Low [facility] Lymphocytes/100 WBC (Bld) 9.8 % [facility] MCH (RBC) [Entitic mass] 31.4 pg 26.0 - 34.0 pg [facility] MCHC (RBC) [Mass/Vol] 32.4 g/dL 31.0 - 37.0 g/dL [facility] MCV (RBC) [Entitic vol] 97.0 fL 80.0 - 100.0 fL [facility] Monocytes (Bld) [#/Vol] 1.14 10*3/uL High [facility] Monocytes/100 WBC (Bld) 12.5 % [facility] Neutrophils (Bld) [#/Vol] 6.46 10*3/uL [facility] Neutrophils/100 WBC (Bld) 71.2 % [facility] Nucleated RBC (Bld) [#/Vol] 0.00 10*3/uL [facility] Nucleated RBC/100 WBC (Bld) [Ratio] 0.0 % [facility] Platelet mean volume (Bld) [Entitic vol] 9.6 fL 9.4 - 12.4 fL [facility] Platelets (Bld) [#/Vol] 185 10*3/uL [facility] RBC (Bld) [#/Vol] 3.95 10*6/uL Low [facility] eah WBC (Bld) [#/Vol] 9.09 10*3/uL [facility] Magn[facility] Levelon 08-11-2020 Interpretation and review of laboratory results Normal [facility] Magnesium [Mass/Vol] 1.8 mg/dL 1.6 - 2 .4 mg/dL [facility] Phosphoruson 08-11-2020 Interpretation and review of laboratory results Abnormal [facility] Phosphate [Mass/Vol] 2.1 mg/dL Low 2.7 - 4 .5 mg/dL [facility] Vancomycin Level, Troughon 0 08-11-2020 Interpretation and review of laboratory results Normal [facility] Vancomycin trough [Mass/Vol] 7.1 ug/mL [facility] XR CHEST AP/PA AND LATon [...] organism, unspecified whether acute organ dysfunction present ([facility]) J96.00 Acute respiratory failure, unspecified whether with hypoxia or hypercapnia ([facility]) FINDINGS: Unchanged eventration of the posterior right hemidiaphragm. Hyperinflated lungs with attenuation of pulmonary vasculature. Increased bilateral lower lobe airspace opacities, remaining worse on the left. No findings of pneumothorax. Trace bilateral pleural effusions. Normal mediastinal and cardiac contours. [facility] 1. Increased bilater al lower lobe airspace opacities worse on the left likely due to pneumonia or aspiration. Underlying atelectasis and scarring may be present. 2. Trace bilateral pleural effusions. 3. Emphysema better seen on CT. Workstation ID: [id number] [facility] Interface, Rad In Fu ji [...] organism, unspecified whether acute organ dysfunction present ([facility]) J96.00 Acute respiratory failure, unspecified whether with hypoxia or hypercapnia ([facility]) FINDINGS: Unchanged eventration of the [...] better seen on CT. Workstation ID: [id number] [facility] Basic Metabolic Panelon Anion gap [Moles/Vol] 12 mmol/L 10 - 2 0 mmol/L [facility] Calcium [Mass/Vol] 7.7 mg/dL Low 8.4 - 10. 2 mg/dL [facility] Chloride [Moles/Vol] 105 mmol/L 98 - 10 8 mmol/L [facility] Creatinine [Mass/Vol] 0.60 mg/dL 0.50 - 1.30 [facility] GFR/1.73 sq M predicted among non-blacks MDRD (S/P/Bld) [Vol rate/Area] The eGFR should be used for monitoring renal function only and not for medication dosing. [facility] GFR/1.73 sq M.predicted CKD-EPI (S/P/Bld) [Vol rate/Area] 109 >=60 mL/min/1.73 m2 [facility] Glucose [Mass/Vol] 130 mg/dL High 65 - 99 mg/dL [facility] [Moles/Vol] 24 mmol/L 21 - 32 mmol/L [facility] Interpretation and review of laboratory results Abnormal [facility] Potassium [Moles/Vol] 3.9 mmol/L 3.5 - 5.1 mmol/L [facility] Sodium [Moles/Vol] 137 mmol/L 135 - 145 mmol/L [facility] Urea nitrogen [Mass/Vol] 9 mg/dL 8 - 25 mg/dL [facility] Urea nitrogen/Creatinine [Mass ratio] 15.0 mg/mg [facility] CBC WITH AUTO DIFFERENTIALon 08-10-2020 Basophils (Bld) [#/Vol] 0.03 10*3/uL [facility] Basophils/100 WBC (Bld) 0.3 % [facility] Eosinophils (Bld) [#/Vol] 0.47 10*3/uL [facility] Eosinophils/100 WBC (Bld) 5.0 % [facility] Erythrocyte distribution width (RBC) [Entitic vol] 13.2 % 11.6 - 14.8 % [facility] Hematocrit (Bld) [Volume fraction] 38.1 % Low 41.0 - 53.0 % [facility] Hemoglobin (Bld) [Mass/Vol] 11.9 g/dL Low 13.5 - 17.5 g/dL [facility] Immature granulocytes (Bld) [#/Vol] 0.05 10*3/uL [facility] Immature granulocytes/100 WBC (Bld) 0.50 % [facility] Comment on above: The IG parameter is the percentage of metamyelocytes, myelocytes and promyelocytes. An immature granulocyte count (IG) of 1% or more suggests the possibility of infection, an IG count of 3% is very likely related to an infection. Interpretation and review of laboratory results Abnormal [facility] Lymphocytes (Bld) [#/Vol] 0.78 10*3/uL Low [facility] Lymphocytes/100 WBC (Bld) 8.3 % [facility] MCH (RBC) [Entitic mass] 31.2 pg 26.0 - 34.0 pg [facility] MCHC (RBC) [Mass/Vol] 31.2 g/dL 31.0 - 37.0 g/dL [facility] MCV (RBC) [Entitic vol] 99.7 fL 80.0 - 100.0 fL [facility] Monocytes (Bld) [#/Vol] 0.96 10*3/uL High [facility] Monocytes/100 WBC (Bld) 10.2 % [facility] Neutrophils (Bld) [#/Vol] 7.08 10*3/uL High [facility] Neutrophils/100 WBC (Bld) 75.7 % [facility] Nucleated RBC (Bld) [#/Vol] 0.00 10*3/uL [facility] Nucleated RBC/100 WBC (Bld) [Ratio] 0.0 % [facility] Platelet mean volume (Bld) [Entitic vol] 9.4 fL 9.4 - 12.4 fL [facility] Platelets (Bld) [#/Vol] 161 10*3/uL [facility] RBC (Bld) [#/Vol] 3.82 10*6/uL Low [facility] WBC (Bld) [#/Vol] 9.37 10*3/uL [facility] ECG 12-LEADon 08-10-2020 Atrial Rate 126 BPM [facility] P [place] 73 degrees [facility] P-R Interval 144 ms [facility] Q-T Interval 296 ms [facility] QRS Duration 88 ms [facility] QTC Calculation (Bezet) 428 ms [facility] R [place] 71 degrees [facility] T [place] 78 degrees [facility] Ventricular Rate 126 BPM [facility] th Sinus tachycardia Otherwise normal ECG When compared with ECG of 08-AUG-2020 22:49, No significant change was found Confirmed by Flores Duong ([id number]) on 08/10/2020 7:29:53 PM [facility] Atrial Rate 113 BPM [facility] P [place] 52 degrees [facility] P-R Interval 152 ms [facility] Q-T Interval 308 ms [facility] QRS Duration 96 ms [facility] QTC Calculation (Bezet) 422 ms [facility] R [place] 59 degrees [facility] T [place] 67 degrees [facility] Ventricular Rate 113 BPM [facility] th Sinus tachycardia Otherwise normal ECG When compared with ECG of 09-AUG-2020 16:30, (unconfirmed) No significant change was found Confirmed by Flores Duong ([id number]) on 08/10/2020 7:27:15 PM [facility] MRSA DNA Amplified Probeon 0 08-10-2020 Interpretation and review of laboratory results Abnormal [facility] MRSA DNA MOMO+probe Ql (Unsp spec) Positive Abnormal MRSA NEGATIVE [facility] TROPONINon 08-10-2020 Troponin T.cardiac [Mass/Vol] No biomarker evidence of cardiac injury. [facility] Troponin T.cardiac [Mass/Vol] 0 ng/L < = -/+ 7 change [facility] Troponin T.cardiac [Mass/Vol] 8 ng/L <=22 [facility] Troponin T.cardiac [Mass/Vol] 8 ng/L <=22 [facility] Troponin T.cardiac [Mass/Vol] Normal [facility] B12/Folateon 08-09-2020 Cobalamin (Vitamin B12) [Mass/Vol] 233 pg/mL 232 - 1245 pg/mL [facility] Folate [Mass/Vol] 9.7 ng/mL 3.1 - 17.5 ng/mL [facility] Comment on above: Deficient <2.2 Borderline 2.2 - 3.0 Excessive >17.5 BLOOD GAS, VBG WITH FULL WILLARD Jarod 08-09-2020 Base excess Calc (BldV) [Moles/Vol] 1.8 mmol/L [facility] Calcium.ionized [Mass/Vol] 4.3 mg/dL Low 4.5 - 5.3 mg/dL [facility] Carboxyhemoglobin (BldA) [Mass fraction] 2.5 High <=1.5 % of total Hb [facility] Comment on above: Reference Ranges: [facility] Non-smokers: <1.5% Smokers: 1.5-5.0% Heavy Smokers: 5.0-9.0% CO2 (BldV) [Partial pressure] 46.5 mm[Hg] [facility] Glucose [Mass/Vol] 108 mg/dL High 65 - 99 mg/dL [facility] HCO3 (Bld) [Moles/Vol] 26.9 mmol/L 24.0 - 28.0 mmol/L [facility] Hematocrit (BldA) [Volume fraction] 42.5 % 41.0 - 53.0 % [facility] Hemoglobin (Bld) [Mass/Vol] 13.8 g/dL 13.5 - 17.5 g/dL [facility] Interpretation and review of laboratory results Abnormal [facility] Lactate [Moles/Vol] 1.0 mmol/L 0.6 - 2. 0 mmol/L [facility] Methemoglobin (BldA) [Mass fraction] 0.4 % 0.0 - 2.0 % [facility] Oxygen (BldV) [Partial pressure] 58 mm[Hg] High [facility] Oxygen saturation in Venous blood 88.9 % High 40.0 - 70.0 % [facility] Oxyhemoglobin (BldA) [Mass fraction] 86.3 % No established reference range [facility] pH (BldV) 7.38 [pH] [facility] Potassium [Moles/Vol] 3.9 mmol/L 3.5 - 5.1 mmol/L [facility] Sodium [Moles/Vol] 135 mmol/L 135 - 145 mmol/L [facility] CBC WITH AUTO DIFFERENTIALon 08-09-2020 Basophils (Bld) [#/Vol] 0.04 10*3/uL [facility] Basophils/100 WBC (Bld) 0.2 % [facility] Eosinophils (Bld) [#/Vol] 0.19 10*3/uL [facility] Eosinophils/100 WBC (Bld) 1.1 % [facility] Erythrocyte distribution width (RBC) [Entitic vol] 13.5 % 11.6 - 14.8 % [facility] Hematocrit (Bld) [Volume fraction] 43.9 % 41.0 - 53.0 % [facility] Hemoglobin (Bld) [Mass/Vol] 13.9 g/dL 13.5 - 17.5 g/dL [facility] Immature granulocytes (Bld) [#/Vol] 0.14 10*3/uL [facility] Immature granulocytes/100 WBC (Bld) 0.80 % [facility] Comment on above: The IG parameter is the percentage of metamyelocytes, myelocytes and promyelocytes. An immature granulocyte count (IG) of 1% or more suggests the possibility of infection, an IG count of 3% is very likely related to an infection. Interpretation and review of laboratory results Abnormal [facility] Lymphocytes (Bld) [#/Vol] 0.98 10*3/uL [facility] Lymphocytes/100 WBC (Bld) 5.8 % [facility] MCH (RBC) [Entitic mass] 31.2 pg 26.0 - 34.0 pg [facility] MCHC (RBC) [Mass/Vol] 31.7 g/dL 31.0 - 37.0 g/dL [facility] MCV (RBC) [Entitic vol] 98.4 fL 80.0 - 100.0 fL [facility] Monocytes (Bld) [#/Vol] 1.64 10*3/uL High [facility] Monocytes/100 WBC (Bld) 9.7 % [facility] Neutrophils (Bld) [#/Vol] 13.85 10*3/uL High [facility] Neutrophils/100 WBC (Bld) 82.4 % [facility] Nucleated RBC (Bld) [#/Vol] 0.00 10*3/uL [facility] Nucleated RBC/100 WBC (Bld) [Ratio] 0.0 % [facility] Platelet mean volume (Bld) [Entitic vol] 10.0 fL 9.4 - 12.4 fL [facility] Platelets (Bld) [#/Vol] 162 10*3/uL [facility] RBC (Bld) [#/Vol] 4.46 10*6/uL Low [facility] WBC (Bld) [#/Vol] 16.84 10*3/uL High [facility] Comprehensive Metabolic Pane samuel 08-09-2020 Albumin [Mass/Vol] 3.3 g/dL 3.2 - 5.2 g/dL [facility] ALP [Catalytic activity/Vol] 127 U/L 40 - 150 U/L [facility] ALT [Catalytic activity/Vol] 26 U/L 0 - 40 U/L [facility] Anion gap [Moles/Vol] 16 mmol/L 10 - 2 0 mmol/L [facility] AST [Catalytic activity/Vol] 22 U/L 0 - 45 U/L [facility] Bilirubin [Mass/Vol] 0.7 mg/dL 0.0 - 1 .3 mg/dL [facility] Calcium [Mass/Vol] 8.1 mg/dL Low 8.4 - 10. 2 mg/dL [facility] Chloride [Moles/Vol] 97 mmol/L Low 98 - 10 8 mmol/L [facility] Creatinine [Mass/Vol] 0.76 mg/dL 0.50 - 1.30 [facility] GFR/1.73 sq M predicted among non-blacks MDRD (S/P/Bld) [Vol rate/Area] The eGFR should be used for monitoring renal function only and not for medication dosing. [facility] GFR/1.73 sq M.predicted CKD-EPI (S/P/Bld) [Vol rate/Area] 99 >=60 mL/min/1.73 m2 [facility] Glucose [Mass/Vol] 84 mg/dL 65 - 99 mg/dL [facility] HCO3 [Moles/Vol] 26 mmol/L 21 - 32 mmol/L [facility] Potassium [Moles/Vol] 3.9 mmol/L 3.5 - 5.1 mmol/L [facility] Protein [Mass/Vol] 5.7 g/dL Low 6.0 - 8.0 g/dL [facility] Sodium [Moles/Vol] 135 mmol/L 135 - 145 mmol/L [facility] Urea nitrogen [Mass/Vol] 14 mg/dL 8 - 25 mg/dL [facility] Urea nitrogen/Creatinine [Mass ratio] 18.4 mg/mg [facility] DRUGS OF ABUSE SCREEN, URINE on 08-09-2020 Amphetamines Ql (U) None Detected None Detected [facility] Comment on above: Urine Amphetamine Cu toff: < 1000 ng/mL = None Detected Barbiturates Screen Ql (U) None Detected None Detected [facility] Comment on above: Urine Barbiturates C utoff: < 200 ng/mL = None Detected Benzodiazepines Ql (U) None Detected None Detected [facility] Comment on above: Urine Benzodiazepine Cutoff: < 200 ng/mL = None Detected Buprenorphine Ql (U) Positive Abnormal None Detected [facility] Comment on above: Urine Buprenorphine Cutoff: < 5 ng/mL = None Detected Cannabinoids Screen Ql (U) None Detected None Detected [facility] Comment on above: Urine Cannabinoids C utoff: < 50 ng/mL = None Detected Cocaine Ql (U) None Detected None Detected [facility] Comment on above: Urine Cocaine Cutoff : < 300 ng/mL = None Detected Fentanyl+Norfentanyl Screen Ql (U) None Detected None Detected [facility] Comment on above: Urine Fentanyl Cutof f: < 1 ng/mL = None Detected Interpretation and review of laboratory results Abnormal [facility] Methadone Screen Ql (U) None Detected None Detected [facility] Comment on above: Urine Methadone Cuto ff: < 300 ng/mL = None Detected Opiates Screen Ql (U) None Detected None Detect ed [facility] Comment on above: Urine Opiates Cutoff : < 300 ng/mL = None Detected Oxycodone Ql (U) None Detected None Detected [facility] Comment on above: Urine Oxycodone Cuto ff: < 100 ng/mL = None Detected Screen results shoul d be used for treatment purposes only. Specimen will be kept for 2 weeks, if the sample is adequate. Confirmation testing can be initiated by calling the lab within 2 weeks. [facility] ECG 12-LEADon 08-09-2020 Atrial Rate 126 BPM [facility] P [place] 79 degrees [facility] P-R Interval 142 ms [facility] Q-T Interval 288 ms [facility] QRS Duration 86 ms [facility] QTC Calculation (Bezet) 417 ms [facility] R [place] 74 degrees [facility] T [place] 80 degrees [facility] Ventricular Rate 126 BPM [facility] th Sinus tachycardia Otherwise normal ECG When compared with ECG of 26-JUL-2020 13:49, No significant change was found Confirmed by Physician, ED ([id number]), non linear editor CARMEN FLEMING ([id number]) on 08/09/2020 8:28:09 AM [facility] EKGon 08-09-2020 Ordered by an unspec ified provider. [facility] Hemoglobin A1con 08-09-2020 Average glucose Estimated from glycated hemoglobin mass conc (Bld) 108 mg/dL 74 - 114 mg/dL [facility] HbA1c (Bld) [Mass fraction] 5.4 % 4.2 - 5.6 % [facility] Interpretation and review of laboratory results Normal [facility] LEGIONELLA ANTIGEN, URINEon 08-09-2020 L. pneumophila Ag Ql (U) Negative Negative for Legionella antigen [facility] Comment on above: COMMENT: Results may be affected if patient is on diuretics. INTERPRETATION OF RESULTS: Test detects Legionella pneumophilia serogroup 1 antigens in urine. Legionnaires disease cannot be ruled out since other serogroups and species may also cause disease. MRSA DNA Amplified Probeon 0 08-09-2020 Interpretation and review of laboratory results Abnormal [facility] MRSA DNA MOMO+probe Ql (Unsp spec) Positive Abnormal MRSA NEGATIVE [facility] Magnesiumon 08-09-2020 Interpretation and review of laboratory results Normal [facility] Magnesium [Mass/Vol] 2.1 mg/dL 1.6 - 2 .4 mg/dL [facility] Otheron 08-09-2020 Interpretation and review of laboratory results Normal [facility] Interpretation and review of laboratory results Abnormal [facility] Interpretation and review of laboratory results Normal [facility] PT/INRon 08-09-2020 INR Coag (PPP) [Relative time] 1.1 {INR} [facility] Interpretation and review of laboratory results Normal [facility] PT Coag (PPP) [Time] 14.1 s [facility] During the induction phase of oral anticoagulation, the INR may not reflect the anticoagulation status of the patient. Therapeutic ranges for INR's are: Most clinical situations: INR 2.0-3.0 Mechanical Prosthetic Valve: INR 2.5-3.5 Critical: INR >5.0 [facility] Phosphoruson 08-09-2020 Phosphate [Mass/Vol] 2.4 mg/dL Low 2.7 - 4 .5 mg/dL [facility] S.PNEUMONIAE URINE ANTIGENon 08-09-2020 S. pneumoniae Ag Ql (U) Negative Presumptive Negative for Pneumococcal pneumoniae [facility] Comment on above: A negative result rice ggests no current or recent pneumococcal infection. A negative result does not rule out Streptococcus pneumoniae infection since the antigen present in the sample may be below the detection limit of the test. TSH with Reflex Free T4on TSH Qn 1.76 m[IU]/L [facility] URINALYSISon 08-09-2020 Bacteria Auto Ql (U) Rare Abnormal None Se en /hpf [facility] Bilirubin Ql (U) Negative Negative [facility] th Clarity Refractometry automated (U) Cloudy Abnormal Clear [facility] Color (U) Yenni Abnormal Colorless, Yellow [facility] Epithelial cells.squamous Auto (Urine sed) [#/Area] <1 [facility] Glucose Auto test strip (U) [Mass/Vol] Negative Negative mg/dL [facility] Hemoglobin Auto test strip Ql (U) Large Abnormal Negative [facility] Hyaline casts Auto (Urine sed) [#/Area] 0-2 0 - 2 /lpf [facility] Interpretation and review of laboratory results Abnormal [facility] Ketones (U) [Mass/Vol] Negative Negative mg/dL [facility] Leukocyte esterase Auto test strip Ql (U) Negative Negative [facility] Mucus Auto (Urine sed) [#/Area] Many Abnormal None Seen, Rare /lpf [facility] Nitrite Auto test strip Ql (U) Negative Negative [facility] pH (U) 6.0 [pH] [facility] Protein (U) [Mass/Vol] 100 Abnormal Negative mg/dL [facility] RBC Auto (Urine sed) [#/Area] 137 High [facility] RBC casts Computer assisted (U) [#/Area] 1 High [facility] Specific gravity (U) [Rel density] 1.037 High [facility] Urobilinogen (U) [Mass/Vol] >=4.0 Abnormal <2.0 mg/dL [facility] WBC Auto (Urine sed) [#/Area] 11 High [facility] Yeast.budding Computer assisted (U) [#/Area] Few Abnormal None Seen /hpf [facility] Microscopic examinat ion is performed on all urinalysis samples and only positive findings are reported. The test for blood on the chemical analytic portion of urinalysis may also be positive due to hemoglobinuria and myoglobinuria and if red blood cells are present they are quantified by microscopic examination. [facility] XR Chest 1 Viewon 08-09-2020 [...] also have this appearance. Workstation ID: [id number] [facility] EXAMINATION: ONE XRA Y VIEW [...] cardiac silhouette and osseous structures are stable. [facility] Left perihilar and l carlos base interstitial prominence is favored to reflect infection. Asymmetric pulmonary edema can also have this appearance. Workstation ID: [id number] [facility] CBC WITH AUTO DIFFERENTIALon 08-08-2020 Basophils (Bld) [#/Vol] 0.04 10*3/uL [facility] Basophils/100 WBC (Bld) 0.2 % [facility] Eosinophils (Bld) [#/Vol] 0.11 10*3/uL [facility] Eosinophils/100 WBC (Bld) 0.7 % [facility] Erythrocyte distribution width (RBC) [Entitic vol] 13.2 % 11.6 - 14.8 % [facility] Hematocrit (Bld) [Volume fraction] 45.9 % 41.0 - 53.0 % [facility] Hemoglobin (Bld) [Mass/Vol] 15.2 g/dL 13.5 - 17.5 g/dL [facility] Immature granulocytes (Bld) [#/Vol] 0.10 10*3/uL [facility] Immature granulocytes/100 WBC (Bld) 0.60 % [facility] Comment on above: The IG parameter is the percentage of metamyelocytes, myelocytes and promyelocytes. An immature granulocyte count (IG) of 1% or more suggests the possibility of infection, an IG count of 3% is very likely related to an infection. Interpretation and review of laboratory results Abnormal [facility] Lymphocytes (Bld) [#/Vol] 0.82 10*3/uL Low [facility] Lymphocytes/100 WBC (Bld) 5.0 % [facility] MCH (RBC) [Entitic mass] 31.4 pg 26.0 - 34.0 pg [facility] MCHC (RBC) [Mass/Vol] 33.1 g/dL 31.0 - 37.0 g/dL [facility] MCV (RBC) [Entitic vol] 94.8 fL 80.0 - 100.0 fL [facility] Monocytes (Bld) [#/Vol] 1.23 10*3/uL High [facility] Monocytes/100 WBC (Bld) 7.5 % [facility] Neutrophils (Bld) [#/Vol] 14.10 10*3/uL High [facility] Neutrophils/100 WBC (Bld) 86.0 % [facility] Nucleated RBC (Bld) [#/Vol] 0.00 10*3/uL [facility] Nucleated RBC/100 WBC (Bld) [Ratio] 0.0 % [facility] Platelet mean volume (Bld) [Entitic vol] 9.5 fL 9.4 - 12.4 fL [facility] Platelets (Bld) [#/Vol] 185 10*3/uL [facility] RBC (Bld) [#/Vol] 4.84 10*6/uL [facility] ealth WBC (Bld) [#/Vol] 16.40 10*3/uL [facility] COVID-19/Influenza A,B Molec ularon 08-08-2020 Influenza A Not Detected Not Detected [facility] Influenza B Not Detected Not Detected [facility] Interpretation and review of laboratory results Normal [facility] SARS-CoV-2 Not Detected Not Detected [facility] This test was perfor med [...] the following links: For Healthcare Providers: https://www.fda.gov/media /045470/download For Patients: https://www.fda.gov/media /378732/download [facility] Chem 7on 08-08-2020 Anion gap [Moles/Vol] 18 mmol/L 10 - 2 0 mmol/L [facility] Chloride [Moles/Vol] 95 mmol/L Low 98 - 10 8 mmol/L [facility] Creatinine [Mass/Vol] 0.81 mg/dL 0.50 - 1.30 [facility] GFR/1.73 sq M predicted among non-blacks MDRD (S/P/Bld) [Vol rate/Area] The eGFR should be used for monitoring renal function only and not for medication dosing. [facility] GFR/1.73 sq M.predicted CKD-EPI (S/P/Bld) [Vol rate/Area] 97 >=60 mL/min/1.73 m2 [facility] Glucose [Mass/Vol] 131 mg/dL High 65 - 99 mg/dL [facility] HCO3 [Moles/Vol] 25 mmol/L 21 - 32 mmol/L [facility] Interpretation and review of laboratory results Abnormal [facility] Potassium [Moles/Vol] 4.2 mmol/L 3.5 - 5.1 mmol/L [facility] Sodium [Moles/Vol] 134 mmol/L Low 135 - 145 mmol/L [facility] Urea nitrogen [Mass/Vol] 13 mg/dL 8 - 25 mg/dL [facility] Urea nitrogen/Creatinine [Mass ratio] 16.0 mg/mg [facility] Lactic Acid, Plasmaon 2020 Interpretation and review of laboratory results Normal [facility] Lactate [Moles/Vol] 1.4 mmol/L 0.6 - 2. 0 mmol/L [facility] NT Pro BNPon 08-08-2020 Interpretation and review of laboratory results Normal [facility] Natriuretic peptide.B prohormone N-Terminal [Mass/Vol] 56 pg/mL 0 - 300 pg/mL [facility] Pride Study Cut-offs Rule In: < /= 50 Years >450 pg/mL 51 Years - 75 Years >900 pg/mL 76 Years - 99 Years >1800 pg/mL Rule Out: All patients <300 pg/mL [facility] Otheron 08-08-2020 Extra Tube Hold for add-ons. [facility] Comment on above: Auto resulted. TROPONINon 08-08-2020 Troponin T.cardiac [Mass/Vol] Normal [facility] Troponin T.cardiac [Mass/Vol] 13 ng/L <=22 [facility] BMPon 07-26-2020 Anion gap [Moles/Vol] 17 mmol/L 10 - 2 0 mmol/L [facility] Calcium [Mass/Vol] 8.9 mg/dL 8.4 - 10. 2 mg/dL [facility] Chloride [Moles/Vol] 97 mmol/L Low 98 - 10 8 mmol/L [facility] Creatinine [Mass/Vol] 0.91 mg/dL 0.50 - 1.30 [facility] GFR/1.73 sq M predicted among non-blacks MDRD (S/P/Bld) [Vol rate/Area] The eGFR should be used for monitoring renal function only and not for medication dosing. [facility] GFR/1.73 sq M.predicted CKD-EPI (S/P/Bld) [Vol rate/Area] 91 >=60 mL/min/1.73 m2 [facility] Glucose [Mass/Vol] 156 mg/dL High 65 - 99 mg/dL [facility] HCO3 [Moles/Vol] 29 mmol/L 21 - 32 mmol/L [facility] Interpretation and review of laboratory results Abnormal [facility] Potassium [Moles/Vol] 4.3 mmol/L 3.5 - 5.1 mmol/L [facility] Sodium [Moles/Vol] 139 mmol/L 135 - 145 mmol/L [facility] Urea nitrogen [Mass/Vol] 19 mg/dL 8 - 25 mg/dL [facility] Urea nitrogen/Creatinine [Mass ratio] 20.9 mg/mg High [facility] CBC WITH AUTO DIFFERENTIALon 07-26-2020 Basophils (Bld) [#/Vol] 0.05 10*3/uL [facility] Basophils/100 WBC (Bld) 0.5 % [facility] Eosinophils (Bld) [#/Vol] 0.11 10*3/uL [facility] Eosinophils/100 WBC (Bld) 1.0 % [facility] Erythrocyte distribution width (RBC) [Entitic vol] 13.7 % 11.6 - 14.8 % [facility] Hematocrit (Bld) [Volume fraction] 44.6 % 41.0 - 53.0 % [facility] Hemoglobin (Bld) [Mass/Vol] 14.4 g/dL 13.5 - 17.5 g/dL [facility] Immature granulocytes (Bld) [#/Vol] 0.35 10*3/uL High [facility] Immature granulocytes/100 WBC (Bld) 3.20 % [facility] Comment on above: The IG parameter is the percentage of metamyelocytes, myelocytes and promyelocytes. An immature granulocyte count (IG) of 1% or more suggests the possibility of infection, an IG count of 3% is very likely related to an infection. Interpretation and review of laboratory results Abnormal [facility] Lymphocytes (Bld) [#/Vol] 0.94 10*3/uL [facility] Lymphocytes/100 WBC (Bld) 8.5 % [facility] MCH (RBC) [Entitic mass] 31.4 pg 26.0 - 34.0 pg [facility] MCHC (RBC) [Mass/Vol] 32.3 g/dL 31.0 - 37.0 g/dL [facility] MCV (RBC) [Entitic vol] 97.4 fL 80.0 - 100.0 fL [facility] Monocytes (Bld) [#/Vol] 0.50 10*3/uL [facility] Monocytes/100 WBC (Bld) 4.5 % [facility] Neutrophils (Bld) [#/Vol] 9.14 10*3/uL [facility] Neutrophils/100 WBC (Bld) 82.3 % [facility] Nucleated RBC (Bld) [#/Vol] 0.00 10*3/uL [facility] Nucleated RBC/100 WBC (Bld) [Ratio] 0.0 % [facility] Platelet mean volume (Bld) [Entitic vol] 9.2 fL Low 9.4 - 12.4 fL [facility] Platelets (Bld) [#/Vol] 307 10*3/uL [facility] RBC (Bld) [#/Vol] 4.58 10*6/uL [facility] WBC (Bld) [#/Vol] 11.09 10*3/uL [facility] CT HEAD OR BRAIN WITHOUT CON [...] of the visualized skull or soft tissues. [facility] In Fu ji Speechq - 07/26/2020 [...] No acute intracranial abnormality. Workstation ID: [id number] [facility] No acute intracrania l abnormality. Workstation ID: [id number] [facility] ECG 12-LEADon 07-26-2020 Atrial Rate 95 BPM [facility] P [place] 77 degrees [facility] P-R Interval 128 ms [facility] Q-T Interval 334 ms [facility] QRS Duration 94 ms [facility] QTC Calculation (Bezet) 419 ms [facility] R [place] 68 degrees [facility] T [place] 73 degrees [facility] Ventricular Rate 95 BPM [facility] Normal sinus rhythm Normal ECG When compared with ECG of 25-JUL-2020 07:54, No significant change was found Confirmed by Physician, ED ([id number]), non linear editor BILL SANTACRUZ ([id number]) on 07/26/2020 2:28:29 PM [facility] Otheron 07-26-2020 Extra Tube Hold for add-ons. [facility] Comment on above: Auto resulted. TROPONINon 07-26-2020 Troponin T.cardiac [Mass/Vol] Normal [facility] Troponin T.cardiac [Mass/Vol] 11 ng/L <=22 [facility] BLOOD GAS, VBG WITH FULL WILLARD Jarod 07-25-2020 Base excess Calc (BldV) [Moles/Vol] 2.8 mmol/L High [facility] Calcium.ionized [Mass/Vol] 4.5 mg/dL 4.5 - 5.3 mg/dL [facility] Carboxyhemoglobin (BldA) [Mass fraction] 2.2 High <=1.5 % of total Hb [facility] Comment on above: Reference Ranges: [place] Non-smokers: <1.5% Smokers: 1.5-5.0% Heavy Smokers: 5.0-9.0% CO2 (BldV) [Partial pressure] 39.3 mm[Hg] Low [facility] Glucose [Mass/Vol] 190 mg/dL High 65 - 99 mg/dL [facility] HCO3 (Bld) [Moles/Vol] 26.5 mmol/L 24.0 - 28.0 mmol/L [facility] Hematocrit (BldA) [Volume fraction] 41.5 % 41.0 - 53.0 % [facility] Hemoglobin (Bld) [Mass/Vol] 13.5 g/dL 13.5 - 17.5 g/dL [facility] Interpretation and review of laboratory results Abnormal [facility] Lactate [Moles/Vol] 3.5 mmol/L High 0.6 - 2. 0 mmol/L [facility] Methemoglobin (BldA) [Mass fraction] 0.4 % 0.0 - 2.0 % [facility] Oxygen (BldV) [Partial pressure] 82 mm[Hg] High [facility] Oxygen saturation in Venous blood 96.5 % High 40.0 - 70.0 % [facility] Oxyhemoglobin (BldA) [Mass fraction] 94.0 % No established reference range [facility] pH (BldV) 7.44 [pH] High [facility] Potassium [Moles/Vol] 4.1 mmol/L 3.5 - 5.1 mmol/L [facility] Sodium [Moles/Vol] 139 mmol/L 135 - 145 mmol/L [facility] BMPon 07-25-2020 Anion gap [Moles/Vol] 16 mmol/L 10 - 2 0 mmol/L [facility] Calcium [Mass/Vol] 8.6 mg/dL 8.4 - 10. 2 mg/dL [facility] Chloride [Moles/Vol] 101 mmol/L 98 - 10 8 mmol/L [facility] Creatinine [Mass/Vol] 0.81 mg/dL 0.50 - 1.30 [facility] GFR/1.73 sq M predicted among non-blacks MDRD (S/P/Bld) [Vol rate/Area] The eGFR should be used for monitoring renal function only and not for medication dosing. [facility] GFR/1.73 sq M.predicted CKD-EPI (S/P/Bld) [Vol rate/Area] 97 >=60 mL/min/1.73 m2 [facility] Glucose [Mass/Vol] 230 mg/dL High 65 - 99 mg/dL [facility] HCO3 [Moles/Vol] 26 mmol/L 21 - 32 mmol/L [facility] Interpretation and review of laboratory results Abnormal [facility] Potassium [Moles/Vol] 4.3 mmol/L 3.5 - 5.1 mmol/L [facility] Sodium [Moles/Vol] 139 mmol/L 135 - 145 mmol/L [facility] Urea nitrogen [Mass/Vol] 16 mg/dL 8 - 25 mg/dL [facility] Urea nitrogen/Creatinine [Mass ratio] 19.8 mg/mg [facility] CBC WITH AUTO DIFFERENTIALon 07-25-2020 Basophils (Bld) [#/Vol] 0.02 10*3/uL [facility] Basophils/100 WBC (Bld) 0.2 % [facility] Eosinophils (Bld) [#/Vol] 0.04 10*3/uL [facility] Eosinophils/100 WBC (Bld) 0.4 % [facility] Erythrocyte distribution width (RBC) [Entitic vol] 13.6 % 11.6 - 14.8 % [facility] Hematocrit (Bld) [Volume fraction] 41.8 % 41.0 - 53.0 % [facility] Hemoglobin (Bld) [Mass/Vol] 13.2 g/dL Low 13.5 - 17.5 g/dL [facility] Immature granulocytes (Bld) [#/Vol] 0.13 10*3/uL [facility] Immature granulocytes/100 WBC (Bld) 1.40 % [facility] Comment on above: The IG parameter is the percentage of metamyelocytes, myelocytes and promyelocytes. An immature granulocyte count (IG) of 1% or more suggests the possibility of infection, an IG count of 3% is very likely related to an infection. Interpretation and review of laboratory results Abnormal [facility] Lymphocytes (Bld) [#/Vol] 0.68 10*3/uL Low [facility] Lymphocytes/100 WBC (Bld) 7.2 % [facility] MCH (RBC) [Entitic mass] 31.4 pg 26.0 - 34.0 pg [facility] MCHC (RBC) [Mass/Vol] 31.6 g/dL 31.0 - 37.0 g/dL [facility] MCV (RBC) [Entitic vol] 99.3 fL 80.0 - 100.0 fL [facility] Monocytes (Bld) [#/Vol] 0.44 10*3/uL [facility] Monocytes/100 WBC (Bld) 4.7 % [facility] Neutrophils (Bld) [#/Vol] 8.12 10*3/uL High [facility] Neutrophils/100 WBC (Bld) 86.1 % [facility] Nucleated RBC (Bld) [#/Vol] 0.00 10*3/uL [facility] Nucleated RBC/100 WBC (Bld) [Ratio] 0.0 % [facility] Platelet mean volume (Bld) [Entitic vol] 9.3 fL Low 9.4 - 12.4 fL [facility] Platelets (Bld) [#/Vol] 246 10*3/uL [facility] RBC (Bld) [#/Vol] 4.21 10*6/uL Low [facility] WBC (Bld) [#/Vol] 9.43 10*3/uL [facility] COVID-19/Influenza A,B Molec [facility] 07-25-2020 Influenza A Not Detected Not Detected [facility] Influenza B Not Detected Not Detected [facility] Interpretation and review of laboratory results Normal [facility] SARS-CoV-2 Not Detected Not Detected [facility] This test was perfor med [...] the following links: For Healthcare Providers: https://www.fda.gov/media /177619/download For Patients: https://www.fda.gov/media /433201/download [facility] CT PULMONARY ARTERIESon 07-09 Interface, [...] have resolved. 3. Severe emphysema. Workstation ID: [id number] [facility] 1. No evidence of pulmonary embolism or acute pulmonary abnormality. 2. Decreased consolidation in the superior segment of the right lower lobe, compatible with resolving pneumonia. Right middle lobe opacities have resolved. 3. Severe emphysema. Workstation ID: [id number] [facility] EXAMINATION: CTA OF THE CHEST [...] No acute bone or soft tissue abnormality. [facility] DRUGS OF ABUSE SCREEN, URINE on 07-25-2020 Amphetamines Ql (U) None Detected None Detected [facility] Comment on above: Urine Amphetamine Cu toff: < 1000 ng/mL = None Detected Barbiturates Screen Ql (U) None Detected None Detected [facility] Comment on above: Urine Barbiturates C utoff: < 200 ng/mL = None Detected Benzodiazepines Ql (U) None Detected None Detected [facility] Comment on above: Urine Benzodiazepine Cutoff: < 200 ng/mL = None Detected Buprenorphine Ql (U) Positive Abnormal None Detected [facility] Comment on above: Urine Buprenorphine Cutoff: < 5 ng/mL = None Detected Cannabinoids Screen Ql (U) None Detected None Detected [facility] Comment on above: Urine Cannabinoids C utoff: < 50 ng/mL = None Detected Cocaine Ql (U) None Detected None Detected [facility] Comment on above: Urine Cocaine Cutoff : < 300 ng/mL = None Detected Fentanyl+Norfentanyl Screen Ql (U) None Detected None Detected [facility] Comment on above: Urine Fentanyl Cutof f: < 1 ng/mL = None Detected Interpretation and review of laboratory results Abnormal [facility] Methadone Screen Ql (U) None Detected [facility] Comment on above: Urine Methadone Cuto ff: < 300 ng/mL = None Detected Opiates Screen Ql (U) None Detected None Detect ed [facility] Comment on above: Urine Opiates Cutoff : < 300 ng/mL = None Detected Oxycodone Ql (U) None Detected None Detected [facility] Comment on above: Urine Oxycodone Cuto ff: < 100 ng/mL = None Detected Screen results shoul d be used for treatment purposes only. Specimen will be kept for 2 weeks, if the sample is adequate. Confirmation testing can be initiated by calling the lab within 2 weeks. [facility] ECG 12-LEADon 07-25-2020 Atrial Rate 114 BPM [facility] P [place] 80 degrees [facility] P-R Interval 132 ms [facility] Q-T Interval 322 ms [facility] QRS Duration 80 ms [facility] QTC Calculation (Bezet) 443 ms [facility] R [place] 73 degrees [facility] T [place] 86 degrees [facility] Ventricular Rate 114 BPM [facility] th Poor data qualit y, interpretation may be adversely affected Sinus tachycardia Otherwise normal ECG When compared with ECG of 17-JUL-2020 14:00, No significant change was found Confirmed by Physician, ED ([id number]), non linear editor BILL SANTACRUZ ([id number]) on 07/25/2020 8:05:49 AM [facility] NT Pro BNPon 07-25-2020 Interpretation and review of laboratory results Normal [facility] Natriuretic peptide.B prohormone N-Terminal [Mass/Vol] 82 pg/mL 0 - 300 pg/mL [facility] Pride Study Cut-offs Rule In: < /= 50 Years >450 pg/mL 51 Years - 75 Years >900 pg/mL 76 Years - 99 Years >1800 pg/mL Rule Out: All patients <300 pg/mL [facility] Otheron 07-25-2020 Extra Tube Hold for add-ons. [facility] Comment on above: Auto resulted. Reflex Lactic Acid, Plasmaon 07-25-2020 Interpretation and review of laboratory results Abnormal [facility] [facility] Lactate [Moles/Vol] 2.1 mmol/L High 0.6 - 2. 0 mmol/L [facility] TROPONINon 07-25-2020 Troponin T.cardiac [Mass/Vol] 11 ng/L <=22 [facility] Troponin T.cardiac [Mass/Vol] Normal [facility] Ultrasound Duplex Venous Leg s BILATERALon 07-25-2020 Patient Info Name: WOLF TURCIOS Age: 60 years : 1960 Gender: Male Exam Date: 07/25/2020 9:36 AM Patient Status: Emergency Certified Court/Medical Interpreter: MORIAH STRICKLAND RVT^^^^ Referring Physician: RAVEN Amador; Attending Physician: FLORES MAYEN Indications R60.9 - Edema, unspecified Procedure Description 21160 Duplex examination using B-mode, color and spectral Doppler of extremity veins including responses to compression and other maneuvers; complete bilateral study. Conclusions * No evidence of deep or superficial vein thrombosis in either lower extremity. . Report Signatures Finalized by ANTONIO Collazo MD on 07/25/2020 02:51 PM [facility] Interface, Rad In [facility] - 07/25/2020 2:51 PM EST Patient Info Name: WOLF TURCIOS Age: 60 years : 1960 Gender: Male Exam Date: 07/25/2020 9:36 AM Patient Status: Emergency Certified Court/Medical Interpreter: MORIAH STRICKLAND RVT^^^^ Referring Physician: RAVEN Amador; Attending Physician: FLORES MAYEN Indications R60.9 - Edema, unspecified Procedure Description 56427 Duplex examination using B-mode, color and spectral Doppler of extremity veins including responses to compression and other maneuvers; complete bilateral study. Conclusions * No evidence of deep or superficial vein thrombosis in either lower extremity. . Report Signatures Finalized by ANTONIO Collazo MD on 07/25/2020 02:51 PM [facility] XR Chest 1 Viewon 07-25-2020 Mild right basilar atelectasis. Otherwise no acute focal process. Workstation ID: [id number] [facility] EXAMINATION: ONE XRA Y VIEW [...] Cardiomediastinal silhouette and bony thorax are unchanged. [facility], [facility] - 07/25/2020 9:32 AM EST EXAMINATION: ONE [...] Otherwise no acute focal process. Workstation ID: [id number] [facility] XR Hip Right With Pelvis [...] Left hip demonstrates no significant degenerative changes. [facility], Rad In [facility] - 07/25/2020 9:33 AM EST EXAMINATION: ONE [...] acute fracture or dislocation. Workstation ID: [id number] [facility] Moderate to severe r ight hip osteoarthritis. No acute fracture or dislocation. Workstation ID: [id number] [facility] ECG 12-LEADon 07-19-2020 Atrial Rate 110 BPM [facility] P [place] 82 degrees [facility] P-R Interval 138 ms [facility] Q-T Interval 320 ms [facility] QRS Duration 86 ms [facility] QTC Calculation (Bezet) 433 ms [facility] R [place] 77 degrees [facility] T [place] 87 degrees [facility] Ventricular Rate 110 BPM [facility] Sinus tachycardia Possible Left atrial enlargement Borderline ECG When compared with ECG of 05-JUL-2020 14:05, No significant change was found Confirmed by Physician, ED ([id number]), non linear editor LAUREN AVILA ([id number]) on 07/19/2020 8:21:16 AM [facility] EKGon 07-18-2020 Ordered by an unspec ified provider. [facility] BLOOD GAS, VBG WITH FULL WILLARD Jarod 07-17-2020 Base excess Calc (BldV) [Moles/Vol] 2.8 mmol/L High [facility] Calcium.ionized [Mass/Vol] 4.7 mg/dL 4.5 - 5.3 mg/dL [facility] Carboxyhemoglobin (BldA) [Mass fraction] 3.0 High <=1.5 % of total Hb [facility] Comment on above: Reference Ranges: [place]urban Non-smokers: <1.5% Smokers: 1.5-5.0% Heavy Smokers: 5.0-9.0% CO2 (BldV) [Partial pressure] 63.3 mm[Hg] High [facility] Glucose [Mass/Vol] 117 mg/dL High 65 - 99 mg/dL [facility] HCO3 (Bld) [Moles/Vol] 30.8 mmol/L High 24.0 - 28.0 mmol/L [facility] Hematocrit (BldA) [Volume fraction] 48.3 % 41.0 - 53.0 % [facility] Hemoglobin (Bld) [Mass/Vol] 15.8 g/dL 13.5 - 17.5 g/dL [facility] Inhaled oxygen concentration 21 %/L [facility] Interpretation and review of laboratory results Abnormal [facility] Lactate [Moles/Vol] 3.0 mmol/L High 0.6 - 2. 0 mmol/L [facility] Methemoglobin (BldA) [Mass fraction] 0.3 % 0.0 - 2.0 % [facility] Oxygen (BldV) [Partial pressure] 50 mm[Hg] High [facility] Oxygen saturation in Venous blood 82.1 % High 40.0 - 70.0 % [facility] Oxyhemoglobin (BldA) [Mass fraction] 79.4 % No established reference range [facility] pH (BldV) 7.31 [pH] Low [facility] Potassium [Moles/Vol] 3.7 mmol/L 3.5 - 5.1 mmol/L [facility] Sodium [Moles/Vol] 141 mmol/L 135 - 145 mmol/L [facility] Type of Oxygen saturation device Bipap [facility] Other 23/01 [facility] BMPon 07-17-2020 Anion gap [Moles/Vol] 14 mmol/L 10 - 2 0 mmol/L [facility] Calcium [Mass/Vol] 9.3 mg/dL 8.4 - 10. 2 mg/dL [facility] Chloride [Moles/Vol] 98 mmol/L 98 - 10 8 mmol/L [facility] Creatinine [Mass/Vol] 0.72 mg/dL 0.50 - 1.30 [facility] GFR/1.73 sq M predicted among non-blacks MDRD (S/P/Bld) [Vol rate/Area] The eGFR should be used for monitoring renal function only and not for medication dosing. [facility] GFR/1.73 sq M.predicted CKD-EPI (S/P/Bld) [Vol rate/Area] 101 >=60 mL/min/1.73 m2 [facility] Glucose [Mass/Vol] 121 mg/dL High 65 - 99 mg/dL [facility] HCO3 [Moles/Vol] 31 mmol/L 21 - 32 mmol/L [facility] Interpretation and review of laboratory results Abnormal [facility] Potassium [Moles/Vol] 3.8 mmol/L 3.5 - 5.1 mmol/L [facility] Sodium [Moles/Vol] 139 mmol/L 135 - 145 mmol/L [facility] Urea nitrogen [Mass/Vol] 11 mg/dL 8 - 25 mg/dL [facility] Urea nitrogen/Creatinine [Mass ratio] 15.3 mg/mg [facility] Blood Gas, Venouson 07-17-19 Base excess Calc (BldV) [Moles/Vol] 5.9 mmol/L High [facility] CO2 (BldV) [Partial pressure] 57.3 mm[Hg] High [facility] HCO3 (Bld) [Moles/Vol] 32.5 mmol/L High 24.0 - 28.0 mmol/L [facility] Hematocrit (BldA) [Volume fraction] 43.9 % 41.0 - 53.0 % [facility] Hemoglobin (Bld) [Mass/Vol] 14.3 g/dL 13.5 - 17.5 g/dL [facility] Inhaled oxygen concentration 21 %/L [facility] Interpretation and review of laboratory results Abnormal [facility] Oxygen (BldV) [Partial pressure] 38 mm[Hg] [facility] Oxygen saturation in Venous blood 69.8 % 40.0 - 70.0 % [facility] pH (BldV) 7.37 [pH] [facility] Type of Oxygen saturation device Bipap [facility] Other 23/01 [facility] CBC WITH AUTO DIFFERENTIALon 07-17-2020 Basophils (Bld) [#/Vol] 0.06 10*3/uL [facility] Basophils/100 WBC (Bld) 0.5 % [facility] Eosinophils (Bld) [#/Vol] 0.44 10*3/uL [facility] Eosinophils/100 WBC (Bld) 3.6 % [facility] Erythrocyte distribution width (RBC) [Entitic vol] 12.9 % 11.6 - 14.8 % [facility] Hematocrit (Bld) [Volume fraction] 47.6 % 41.0 - 53.0 % [facility] Hemoglobin (Bld) [Mass/Vol] 15.4 g/dL 13.5 - 17.5 g/dL [facility] Immature granulocytes (Bld) [#/Vol] 0.04 10*3/uL [facility] Immature granulocytes/100 WBC (Bld) 0.30 % [facility] Comment on above: The IG parameter is the percentage of metamyelocytes, myelocytes and promyelocytes. An immature granulocyte count (IG) of 1% or more suggests the possibility of infection, an IG count of 3% is very likely related to an infection. Interpretation and review of laboratory results Abnormal [facility] Lymphocytes (Bld) [#/Vol] 2.09 10*3/uL [facility] Lymphocytes/100 WBC (Bld) 17.0 % [facility] MCH (RBC) [Entitic mass] 31.4 pg 26.0 - 34.0 pg [facility] MCHC (RBC) [Mass/Vol] 32.4 g/dL 31.0 - 37.0 g/dL [facility] MCV (RBC) [Entitic vol] 97.1 fL 80.0 - 100.0 fL [facility] Monocytes (Bld) [#/Vol] 0.97 10*3/uL High [facility] Monocytes/100 WBC (Bld) 7.9 % [facility] Neutrophils (Bld) [#/Vol] 8.71 10*3/uL High [facility] Neutrophils/100 WBC (Bld) 70.7 % [facility] Nucleated RBC (Bld) [#/Vol] 0.00 10*3/uL [facility] Nucleated RBC/100 WBC (Bld) [Ratio] 0.0 % [facility] Platelet mean volume (Bld) [Entitic vol] 9.9 fL 9.4 - 12.4 fL [facility] Platelets (Bld) [#/Vol] 291 10*3/uL [facility] RBC (Bld) [#/Vol] 4.90 10*6/uL [facility] WBC (Bld) [#/Vol] 12.31 10*3/uL [facility] COVID-19/Influenza A,B Molec ularon 07-17-2020 Influenza A Not Detected Not Detected [facility] Influenza B Not Detected Not Detected [facility] Interpretation and review of laboratory results Normal [facility] SARS-CoV-2 Not Detected Not Detected [facility] This test was perfor med [...] the following links: For Healthcare Providers: https://www.fda.gov/media /508888/download For Patients: https://www.fda.gov/media /163046/download [facility] Otheron 07-17-2020 Extra Tube Hold for add-ons. [facility] Comment on above: Auto resulted. Reflex Lactic Acid, Plasmaon 07-17-2020 Interpretation and review of laboratory results Abnormal [facility] Lactate [Moles/Vol] 2.6 mmol/L High 0.6 - 2. 0 mmol/L [facility] TROPONINon 07-17-2020 Troponin T.cardiac [Mass/Vol] No biomarker evidence of cardiac injury. [facility] Troponin T.cardiac [Mass/Vol] 11 ng/L <=22 [facility] Troponin T.cardiac [Mass/Vol] 0 ng/L < = -/+ 7 change [facility] Troponin T.cardiac [Mass/Vol] 11 ng/L <=22 [facility] Troponin T.cardiac [Mass/Vol] Normal [facility] XR Chest 1 Viewon 07-17-2020 [...] normal. I see no evidence of CHF. [facility] Interface, Rad In Fu ji [...] lower lung infiltrate. No new abnormality identified. [employer] Workstation ID: [id number] [facility] Near complete resolu tion of the right lower lung infiltrate. No new abnormality identified. [employer] Workstation ID: [id number] [facility] Otheron 07-10-2020 EXAMINATION: TWO XRA [...] subluxation of the right knee is identified. [facility] Interface, Rad In Fu ji [...] No fracture identified involving the right knee. [employer] Workstation ID: [id number] Severe osteoarthriti s of the right hip joint with loss of the joint space, subchondral cyst formation, bony sclerosis and osteophyte formation. No fracture of the right femoral neck or intratrochanteric region. The rest of the right femur appears unremarkable. Soft tissue swelling anterior to the patella. No fracture identified involving the right knee. [employer] Workstation ID: [id number] XR Lumbar Spine 2-3 Views (S tandard)on [...] arthropathy is seen from L3 through S1. [facility], Rad In Fu j[facility] [employer] - [...] as described above. No acute fractures identified. [employer] Workstation ID: [id number] Changes of DJD and D DD as described above. No acute fractures identified. [employer] [facility]: [email or web address], VBG WITH FULL WILLARD Jarod 07-05-2020 Base excess Calc (BldV) [Moles/Vol] 3.2 mmol/L High [facility] Calcium.ionized [Mass/Vol] 4.7 mg/dL 4.5 - 5.3 mg/dL [facility] Carboxyhemoglobin (BldA) [Mass fraction] 2.3 High <=1.5 % of total Hb [facility] Comment on above: Reference Ranges: [place]urb Non-smokers: <1.5% Smokers: 1.5-5.0% Heavy Smokers: 5.0-9.0% CO2 (BldV) [Partial pressure] 61.5 mm[Hg] High [facility] Glucose [Mass/Vol] 91 mg/dL 65 - 99 mg/dL [facility] HCO3 (Bld) [Moles/Vol] 30.8 mmol/L High 24.0 - 28.0 mmol/L [facility] Hematocrit (BldA) [Volume fraction] 47.3 % 41.0 - 53.0 % [facility] Hemoglobin (Bld) [Mass/Vol] 15.4 g/dL 13.5 - 17.5 g/dL [facility] Inhaled oxygen concentration 21 %/L [facility] Interpretation and review of laboratory results Abnormal [facility] Lactate [Moles/Vol] 1.3 mmol/L 0.6 - 2. 0 mmol/L [facility] Methemoglobin (BldA) [Mass fraction] 0.5 % 0.0 - 2.0 % [facility] Oxygen (BldV) [Partial pressure] 24 mm[Hg] Low [facility] Oxygen saturation in Venous blood 36.8 % Low 40.0 - 70.0 % [facility] Oxyhemoglobin (BldA) [Mass fraction] 35.8 % No established reference range [facility] pH (BldV) 7.32 [pH] [facility] Potassium [Moles/Vol] 3.7 mmol/L 3.5 - 5.1 mmol/L [facility] Sodium [Moles/Vol] 137 mmol/L 135 - 145 mmol/L [facility] Type of Oxygen saturation device Room Air [facility] 07-05-2020 Anion gap [Moles/Vol] 15 mmol/L 10 - 2 0 mmol/L [facility] Calcium [Mass/Vol] 9.4 mg/dL 8.4 - 10. 2 mg/dL [facility] Chloride [Moles/Vol] 98 mmol/L 98 - 10 8 mmol/L [facility] Creatinine [Mass/Vol] 0.86 mg/dL 0.50 - 1.30 [facility] GFR/1.73 sq M predicted among non-blacks MDRD (S/P/Bld) [Vol rate/Area] The eGFR should be used for monitoring renal function only and not for medication dosing. [facility] GFR/1.73 sq M.predicted CKD-EPI (S/P/Bld) [Vol rate/Area] 94 >=60 mL/min/1.73 m2 [facility] Glucose [Mass/Vol] 93 mg/dL 65 - 99 mg/dL [facility] HCO3 [Moles/Vol] 29 mmol/L 21 - 32 mmol/L [facility] Interpretation and review of laboratory results Normal [facility] Potassium [Moles/Vol] 4.0 mmol/L 3.5 - 5.1 mmol/L [facility] Sodium [Moles/Vol] 138 mmol/L 135 - 145 mmol/L [facility] Urea nitrogen [Mass/Vol] 17 mg/dL 8 - 25 mg/dL [facility] Urea nitrogen/Creatinine [Mass ratio] 19.8 mg/mg [facility] CBC WITH AUTO DIFFERENTIALon 07-05-2020 Basophils (Bld) [#/Vol] 0.10 10*3/uL [facility] Basophils/100 WBC (Bld) 0.6 % [facility] Eosinophils (Bld) [#/Vol] 0.58 10*3/uL High [facility] Eosinophils/100 WBC (Bld) 3.2 % [facility] Erythrocyte distribution width (RBC) [Entitic vol] 13.1 % 11.6 - 14.8 % [facility] Hematocrit (Bld) [Volume fraction] 47.1 % 41.0 - 53.0 % [facility] Hemoglobin (Bld) [Mass/Vol] 15.1 g/dL 13.5 - 17.5 g/dL [facility] Immature granulocytes (Bld) [#/Vol] 0.08 10*3/uL [facility] Immature granulocytes/100 WBC (Bld) 0.40 % [facility] Comment on above: The IG parameter is the percentage of metamyelocytes, myelocytes and promyelocytes. An immature granulocyte count (IG) of 1% or more suggests the possibility of infection, an IG count of 3% is very likely related to an infection. Interpretation and review of laboratory results Abnormal [facility] Lymphocytes (Bld) [#/Vol] 1.47 10*3/uL [facility] Lymphocytes/100 WBC (Bld) 8.1 % [facility] MCH (RBC) [Entitic mass] 31.5 pg 26.0 - 34.0 pg [facility] MCHC (RBC) [Mass/Vol] 32.1 g/dL 31.0 - 37.0 g/dL [facility] MCV (RBC) [Entitic vol] 98.1 fL 80.0 - 100.0 fL [facility] Monocytes (Bld) [#/Vol] 1.39 10*3/uL [facility] Monocytes/100 WBC (Bld) 7.7 % [facility] Neutrophils (Bld) [#/Vol] 14.54 10*3/uL [facility] Neutrophils/100 WBC (Bld) 80.0 % [facility] Nucleated RBC (Bld) [#/Vol] 0.00 10*3/uL [facility] Nucleated RBC/100 WBC (Bld) [Ratio] 0.0 % [facility] Platelet mean volume (Bld) [Entitic vol] 9.6 fL 9.4 - 12.4 fL [facility] Platelets (Bld) [#/Vol] 303 10*3/uL [facility] RBC (Bld) [#/Vol] 4.80 10*6/uL [facility]alth WBC (Bld) [#/Vol] 18.16 10*3/uL [facility] CT CHEST WITHOUT CONTRASTon 07-05-2020 1. Bibasilar atelect asis with decreased right middle and right lower lobe consolidative opacities consistent with improving pneumonia since 04/13/2020. 2. Severe emphysema. 3. No central obstructing airway lesion. Workstation ID: [id number] [facility] Interface, Rad In Fu ji [...] central obstructing airway lesion. Workstation ID: [id number] [facility] EXAMINATION: CT OF T HE [...] No acute osseous or soft tissue abnormality. [facility] ECG 12-LEADon 07-05-2020 Atrial Rate 116 BPM [facility] P [place] 85 degrees [facility] P-R Interval 142 ms [facility] Q-T Interval 314 ms [facility] QRS Duration 88 ms [facility] QTC Calculation (Bezet) 436 ms [facility] R [place] 72 degrees [facility] T [place] 85 degrees [facility] Ventricular Rate 116 BPM [facility] Sinus tachycardia Otherwise normal ECG When compared with ECG of 28-MAY-2020 11:57, No significant change was found Confirmed by Physician, ED ([id number]), non linear editor CARMEN FLEMING ([id number]) on 07/05/2020 2:50:18 PM [facility] EKGon 07-05-2020 Ordered by an unspec ified provider. [facility] Otheron 07-05-2020 Extra Tube Hold for add-ons. [facility] Comment on above: Auto resulted. XR [...] is clear. The cardiac silhouette is normal. [facility] Interface, Rad In Fu ji [...] pneumonia, or neoplasm. RM/lab Workstation ID: [id number] [facility] Enlarged nodular den sity in the right lower lobe. Differential includes scarring, recurrent pneumonia, or neoplasm. RM/lab Workstation ID: [id number] [facility] Hematologyon 06-19-2020 INR Coag (PPP) [Relative time] 0.9 {INR} [facility] PT Coag (PPP) [Time] 11.9 s [facility] Hematocrit (Bld) [Volume fraction] 47.3 % 41 - 53 % [facility] Hemoglobin (Bld) [Mass/Vol] 15.0 g/dL 13.5 - 17.5 g/dL [facility] MCH (RBC) [Entitic mass] 31.6 pg 26 - 34 pg [facility] MCV (RBC) [Entitic vol] 99.8 fL 80 - 100 fL [facility] Nucleated RBC (Bld) [#/Vol] 0.00 10*3/uL [facility] Platelets (Bld) [#/Vol] 275 10*3/uL [facility] RBC (Bld) [#/Vol] 4.74 10*6/uL [facility] WBC (Bld) [#/Vol] 9.57 10*3/uL [facility] Metabolic Panelon 06-19-2020 Anion gap [Moles/Vol] 11 mmol/L 10 - 2 0 mmol/L [facility] Calcium [Mass/Vol] 9.2 mg/dL 8.4 - 10. 2 mg/dL [facility] Chloride [Moles/Vol] 100 mmol/L 98 - 10 8 mmol/L [facility] Creatinine [Mass/Vol] 0.71 mg/dL 0.50 - 1.30 [facility] GFR/1.73 sq M predicted among non-blacks MDRD (S/P/Bld) [Vol rate/Area] The eGFR should be used for monitoring renal function only and not for medication dosing. [facility] Glucose [Mass/Vol] 94 mg/dL 65 - 99 mg/dL [facility] Potassium [Moles/Vol] 4.0 mmol/L 3.5 - 5.1 mmol/L [facility] Sodium [Moles/Vol] 138 mmol/L 135 - 145 mmol/L [facility] Urea nitrogen [Mass/Vol] 11 mg/dL 8 - 25 mg/dL [facility] Urea nitrogen/Creatinine [Mass ratio] 15.5 mg/mg [facility] Otheron 06-19-2020 GFR/1.73 sq M.predicted CKD-EPI (S/P/Bld) [Vol rate/Area] 102 >=60 mL/min/1.73 m2 [facility] HCO3 [Moles/Vol] 31 mmol/L 21 - 32 mmol/L [facility] Interpretation and review of laboratory results Normal [facility] Interpretation and review of laboratory results Normal [facility] During the induction phase of oral anticoagulation, the INR may not reflect the anticoagulation status of the patient. Therapeutic ranges for INR's are: Most clinical situations: INR 2.0-3.0 Mechanical Prosthetic Valve: INR 2.5-3.5 Critical: INR >5.0 [facility] Erythrocyte distribution width (RBC) [Entitic vol] 13.8 % 11.6 - 14.8 % [facility] MCHC (RBC) [Mass/Vol] 31.7 g/dL 31 - 37 g/dL [facility] Nucleated RBC/100 WBC (Bld) [Ratio] 0.0 % [facility] Platelet mean volume (Bld) [Entitic vol] 9.5 fL 9.4 - 12.4 fL [facility] BLOOD GAS, VBG WITH FULL WILLARD [place] 05-28-2020 Base excess Calc (BldV) [Moles/Vol] 2.2 mmol/L High [facility] Calcium.ionized [Mass/Vol] 4.8 mg/dL 4.5 - 5.3 mg/dL [facility] Carboxyhemoglobin (BldA) [Mass fraction] 2.9 High <=1.5 % of total Hb [facility] Comment on above: Reference Ranges: [place] Non-smokers: <1.5% Smokers: 1.5-5.0% Heavy Smokers: 5.0-9.0% CO2 (BldV) [Partial pressure] 61.0 mm[Hg] High [facility] Glucose [Mass/Vol] 136 mg/dL High 65 - 99 mg/dL [facility] HCO3 (Bld) [Moles/Vol] 30.0 mmol/L High 24 - 28 mmol/L [facility] Hematocrit (BldA) [Volume fraction] 49.3 % 41 - 53 % [facility] Hemoglobin (Bld) [Mass/Vol] 16.1 g/dL 13.5 - 18 g/dL [facility] Lactate [Moles/Vol] 1.2 mmol/L 0.6 - 2 mmol/L [facility] Methemoglobin (BldA) [Mass fraction] 0.7 % 0 - 2 % [facility] Oxygen (BldV) [Partial pressure] 29 mm[Hg] [facility] Oxygen saturation in Venous blood 47.6 % 40 - 70 % [facility] Oxyhemoglobin (BldA) [Mass fraction] 45.9 % No established reference range [facility] pH (BldV) 7.31 [pH] Low [facility] Potassium [Moles/Vol] 3.9 mmol/L 3.5 - 5.1 mmol/L [facility] Sodium [Moles/Vol] 141 mmol/L 135 - 145 mmol/L [facility] Type of Oxygen saturation device Unknown [facility] BMPon 05-28-2020 Anion gap [Moles/Vol] 15 mmol/L 10 - 2 0 mmol/L [facility] Calcium [Mass/Vol] 9.4 mg/dL 8.4 - 10. 2 mg/dL [facility] Chloride [Moles/Vol] 100 mmol/L 98 - 10 8 mmol/L [facility] Creatinine [Mass/Vol] 0.74 mg/dL 0.50 - 1.30 [facility] GFR/1.73 sq M predicted among non-blacks MDRD (S/P/Bld) [Vol rate/Area] The eGFR should be used for monitoring renal function only and not for medication dosing. [facility] GFR/1.73 sq M.predicted CKD-EPI (S/P/Bld) [Vol rate/Area] 100 >=60 mL/min/1.73 m2 [facility] Glucose [Mass/Vol] 134 mg/dL High 65 - 99 mg/dL [facility] HCO3 [Moles/Vol] 26 mmol/L 21 - 32 mmol/L [facility] Potassium [Moles/Vol] 4.2 mmol/L 3.5 - 5.1 mmol/L [facility] Comment on above: Specimen slightly he molyzed Sodium [Moles/Vol] 137 mmol/L 135 - 145 mmol/L [facility] Urea nitrogen [Mass/Vol] 12 mg/dL 8 - 25 mg/dL [facility] Urea nitrogen/Creatinine [Mass ratio] 16.2 mg/mg [facility] CBC WITH AUTO DIFFERENTIALon 05-28-2020 Basophils (Bld) [#/Vol] 0.11 10*3/uL [facility] Basophils/100 WBC (Bld) 1.4 % [facility] Eosinophils (Bld) [#/Vol] 1.13 10*3/uL High [facility] Eosinophils/100 WBC (Bld) 14.6 % [facility] Erythrocyte distribution width (RBC) [Entitic vol] 13.7 % 11.6 - 14.8 % [facility] Hematocrit (Bld) [Volume fraction] 48.2 % 41 - 53 % [facility] Hemoglobin (Bld) [Mass/Vol] 15.3 g/dL 13.5 - 17.5 g/dL [facility] Immature granulocytes (Bld) [#/Vol] 0.01 10*3/uL [facility] Immature granulocytes/100 WBC (Bld) 0.10 % [facility] Comment on above: The IG parameter is the percentage of metamyelocytes, myelocytes and promyelocytes. An immature granulocyte count (IG) of 1% or more suggests the possibility of infection, an IG count of 3% is very likely related to an infection. Lymphocytes (Bld) [#/Vol] 2.08 10*3/uL [facility] Lymphocytes/100 WBC (Bld) 26.8 % [facility] MCH (RBC) [Entitic mass] 30.8 pg 26 - 34 pg [facility] MCHC (RBC) [Mass/Vol] 31.7 g/dL 31 - 37 g/dL [facility] MCV (RBC) [Entitic vol] 97.0 fL 80 - 100 fL [facility] Monocytes (Bld) [#/Vol] 0.68 10*3/uL [facility] Monocytes/100 WBC (Bld) 8.8 % [facility] Neutrophils (Bld) [#/Vol] 3.75 10*3/uL [facility] Neutrophils/100 WBC (Bld) 48.3 % [facility] Nucleated RBC (Bld) [#/Vol] 0.00 10*3/uL [facility] Nucleated RBC/100 WBC (Bld) [Ratio] 0.0 % [facility] Platelet mean volume (Bld) [Entitic vol] 9.0 fL Low 9.4 - 12.4 fL [facility] Platelets (Bld) [#/Vol] 281 10*3/uL [facility] RBC (Bld) [#/Vol] 4.97 10*6/uL [facility] WBC (Bld) [#/Vol] 7.76 10*3/uL [facility] Hepatic Function Panel (LFT) on 05-28-2020 Albumin [Mass/Vol] 3.9 g/dL 3.2 - 5.2 g/dL [facility] ALP [Catalytic activity/Vol] 88 U/L 40 - 150 U/L [facility] ALT [Catalytic activity/Vol] 13 U/L 0 - 40 U/L [facility] AST [Catalytic activity/Vol] 24 U/L 0 - 45 U/L [facility] Bilirubin [Mass/Vol] 0.4 mg/dL 0 - 1.3 mg/dL [facility] Bilirubin.conjugated [Mass/Vol] mg/dL 0 - 0.4 mg/dL [facility] Protein [Mass/Vol] 7.4 g/dL 6 - 8 g/dL [facility] alth Lactic Acid, Plasmaon 2019 Interpretation and review of laboratory results Normal [facility] Lactate [Moles/Vol] 1.2 mmol/L 0.6 - 2 mmol/L [facility] NT Pro BNPon 05-28-2020 Natriuretic peptide.B prohormone N-Terminal [Mass/Vol] <50 0 - 300 pg/mL [facility] Pride Study Cut-offs Rule In: < /= 50 Years >450 pg/mL 51 Years - 75 Years >900 pg/mL 76 Years - 99 Years >1800 pg/mL Rule Out: All patients <300 pg/mL [facility] Otheron 05-28-2020 Extra Tube Hold for add-ons. [facility] Comment on above: Auto resulted. Interpretation and review of laboratory results Normal [facility] Interpretation and review of laboratory results Abnormal [facility] TSH with Reflex Free T4on TSH Qn 1.16 m[IU]/L [facility] XR Chest 1 Viewon 05-28-2020 [...] effusion or pneumothorax. No gross bony abnormality. [facility] Improved bilateral airspace opacities. Workstation ID: [id number] [facility] Interface, Rad In Juliocesar souza [...] Improved bilateral airspace opacities. Workstation ID: [id number] [facility] Comprehensive Metabolic Pane samuel 04-18-2020 Albumin [Mass/Vol] 3.3 g/dL 3.2 - 5.2 g/dL [facility] ALP [Catalytic activity/Vol] 93 U/L 40 - 150 U/L [facility] ALT [Catalytic activity/Vol] 34 U/L 0 - 40 U/L [facility] Anion gap [Moles/Vol] 15 mmol/L 10 - 2 0 mmol/L [facility] AST [Catalytic activity/Vol] 22 U/L 0 - 45 U/L [facility] Bilirubin [Mass/Vol] 0.2 mg/dL 0 - 1.3 mg/dL [facility] Calcium [Mass/Vol] 9.2 mg/dL 8.4 - 10. 2 mg/dL [facility] Chloride [Moles/Vol] 99 mmol/L 98 - 10 8 mmol/L [facility] Creatinine [Mass/Vol] 0.62 mg/dL 0.50 - 1.30 [facility] GFR/1.73 sq M predicted among non-blacks MDRD (S/P/Bld) [Vol rate/Area] The eGFR should be used for monitoring renal function only and not for medication dosing. [facility] GFR/1.73 sq M.predicted CKD-EPI (S/P/Bld) [Vol rate/Area] 109 >=60 mL/min/1.73 m2 [facility] Glucose [Mass/Vol] 134 mg/dL High 65 - 99 mg/dL [facility] HCO3 [Moles/Vol] 29 mmol/L 21 - 32 mmol/L [facility] Interpretation and review of laboratory results Abnormal [facility] Potassium [Moles/Vol] 3.6 mmol/L 3.5 - 5.1 mmol/L [facility] Protein [Mass/Vol] 6.9 g/dL 6 - 8 g/dL [facility] alth Sodium [Moles/Vol] 139 mmol/L 135 - 145 mmol/L [facility] Urea nitrogen [Mass/Vol] 12 mg/dL 8 - 25 mg/dL [facility] Urea nitrogen/Creatinine [Mass ratio] 19.4 mg/mg [facility] Imm/Pathon 04-18-2020 Bacteria identified Cx Nom (Bld) No Growth After 5 Days [facility] CBCon 04-17-2020 Erythrocyte distribution width (RBC) [Entitic vol] 13.4 % 11.6 - 14.8 % [facility] Hematocrit (Bld) [Volume fraction] 37.1 % Low 41 - 53 % [facility] Hemoglobin (Bld) [Mass/Vol] 11.8 g/dL Low 13.5 - 17.5 g/dL [facility] Interpretation and review of laboratory results Abnormal [facility] MCH (RBC) [Entitic mass] 31.6 pg 26 - 34 pg [facility] MCHC (RBC) [Mass/Vol] 31.8 g/dL 31 - 37 g/dL [facility] MCV (RBC) [Entitic vol] 99.5 fL 80 - 100 fL [facility] Nucleated RBC (Bld) [#/Vol] 0.00 10*3/uL [facility] Nucleated RBC/100 WBC (Bld) [Ratio] 0.0 % [facility] Platelet mean volume (Bld) [Entitic vol] 9.0 fL Low 9.4 - 12.4 fL [facility] Platelets (Bld) [#/Vol] 289 10*3/uL [facility] RBC (Bld) [#/Vol] 3.73 10*6/uL Low [facility]alth WBC (Bld) [#/Vol] 12.36 10*3/uL [facility] CBCon 04-16-2020 Erythrocyte distribution width (RBC) [Entitic vol] 13.1 % 11.6 - 14.8 % [facility] Hematocrit (Bld) [Volume fraction] 35.1 % Low 41 - 53 % [facility] Hemoglobin (Bld) [Mass/Vol] 11.1 g/dL Low 13.5 - 17.5 g/dL [facility] Interpretation and review of laboratory results Abnormal [facility] MCH (RBC) [Entitic mass] 31.3 pg 26 - 34 pg [facility] MCHC (RBC) [Mass/Vol] 31.6 g/dL 31 - 37 g/dL [facility] MCV (RBC) [Entitic vol] 98.9 fL 80 - 100 fL [facility] Nucleated RBC (Bld) [#/Vol] 0.00 10*3/uL [facility] Nucleated RBC/100 WBC (Bld) [Ratio] 0.0 % [facility] Platelet mean volume (Bld) [Entitic vol] 9.4 fL 9.4 - 12.4 fL [facility] Platelets (Bld) [#/Vol] 280 10*3/uL [facility] RBC (Bld) [#/Vol] 3.55 10*6/uL Low [facility] WBC (Bld) [#/Vol] 16.93 10*3/uL [facility] ECG 12-LEADon 04-16-2020 Atrial Rate 75 BPM [facility] P [place] 67 degrees [facility] P-R Interval 144 ms [facility] Q-T Interval 376 ms [facility] QRS Duration 104 ms [facility] QTC Calculation (Bezet) 419 ms [facility] R [place] 65 degrees [facility] T [place] 63 degrees [facility] Ventricular Rate 75 BPM [facility] Normal sinus rhythm Normal ECG Confirmed by Flores Duong ([id number]) on 04/16/2020 10:47:28 AM [facility] Atrial Rate 112 BPM [facility] P [place] 70 degrees [facility] P-R Interval 130 ms [facility] Q-T Interval 318 ms [facility] QRS Duration 82 ms [facility] QTC Calculation (Bezet) 434 ms [facility] R [place] 39 degrees [facility] T [place] 68 degrees [facility] Ventricular Rate 112 BPM [facility] th Sinus tachycardia Otherwise normal ECG When compared with ECG of 13-APR-2020 16:42, (unconfirmed) No significant change was found Confirmed by Physician, ED ([id number]), non linear editor CARMEN FLEMING ([id number]) on 04/16/2020 10:32:32 AM [facility] Atrial Rate 114 BPM [facility] Atrial Rate 113 BPM [facility] P-R Interval 136 ms [facility] P-R Interval 134 ms [facility] Q-T Interval 292 ms [facility] Q-T Interval 308 ms [facility] QRS Duration 90 ms [facility] QRS Duration 86 ms [facility] QTC Calculation (Bezet) 424 ms [facility] QTC Calculation (Bezet) 400 ms [facility] R [place] 57 degrees [facility] R [place] 63 degrees [facility] Ventricular Rate 114 BPM [facility] th Ventricular Rate 113 BPM [facility] Sinus tachycardia Otherwise normal ECG When compared with ECG of 13-APR-2020 16:28, (unconfirmed) No significant change was found Confirmed by Physician, ED ([id number]), non linear editor CARMEN FLEMING ([id number]) on 04/16/2020 10:32:31 AM [facility] Sinus tachycardia Otherwise normal ECG When compared with ECG of 11-APR-2020 20:05, No significant change was found Confirmed by Physician, ED ([id number]), non linear editor CARMEN FLEMING ([id number]) on 04/16/2020 10:32:31 AM [facility] Otheron 04-16-2020 P [place] 76 degrees [facility] T [place] 74 degrees [facility] XR Chest 1 Viewon 04-16-2020 Persistent multi lob ar pneumonia, not significantly changed. Continued follow-up is recommended to ensure resolution. Workstation ID: [id number] [facility] EXAMINATION: ONE XRA Y VIEW [...] organism, unspecified whether acute organ dysfunction present ([facility]) J96.01 Acute respiratory failure with hypoxia ([facility]) J44.1 COPD exacerbation ([facility]) R07.89 Chest pain, atypical R11.2 Nausea and vomiting, intractability of vomiting not specified, unspecified vomiting type FINDINGS: The mediastinal and cardiac contours are stable. There is persistent multifocal airspace consolidation within the lower lobes, right greater than left. There is no pleural effusion or pneumothorax identified. Emphysematous changes are present within the upper lobes. [facility], Rad In Fu ji Speechq - [...] organism, unspecified whether acute organ dysfunction present ([facility]) J96.01 Acute respiratory failure with hypoxia ([facility]) J44.1 COPD exacerbation ([facility]) R07.89 Chest pain, atypical R11.2 [...] recommended to ensure resolution. Workstation ID: [id number] [facility] CBCon 04-15-2020 Erythrocyte distribution width (RBC) [Entitic vol] 13.0 % 11.6 - 14.8 % [facility] Hematocrit (Bld) [Volume fraction] 35.4 % Low 41 - 53 % [facility] Hemoglobin (Bld) [Mass/Vol] 11.5 g/dL Low 13.5 - 17.5 g/dL [facility] Interpretation and review of laboratory results Abnormal [facility] MCH (RBC) [Entitic mass] 31.9 pg 26 - 34 pg [facility] MCHC (RBC) [Mass/Vol] 32.5 g/dL 31 - 37 g/dL [facility] MCV (RBC) [Entitic vol] 98.3 fL 80 - 100 fL [facility] Nucleated RBC (Bld) [#/Vol] 0.00 10*3/uL [facility] Nucleated RBC/100 WBC (Bld) [Ratio] 0.0 % [facility] Platelet mean volume (Bld) [Entitic vol] 9.6 fL 9.4 - 12.4 fL [facility] Platelets (Bld) [#/Vol] 243 10*3/uL [facility] RBC (Bld) [#/Vol] 3.60 10*6/uL Low [facility] WBC (Bld) [#/Vol] 20.02 10*3/uL [facility] CBCon 04-14-2020 Erythrocyte distribution width (RBC) [Entitic vol] 13.3 % 11.6 - 14.8 % [facility] Hematocrit (Bld) [Volume fraction] 38.8 % Low 41 - 53 % [facility] Hemoglobin (Bld) [Mass/Vol] 12.3 g/dL Low 13.5 - 17.5 g/dL [facility] Interpretation and review of laboratory results Abnormal [facility] MCH (RBC) [Entitic mass] 31.6 pg 26 - 34 pg [facility] MCHC (RBC) [Mass/Vol] 31.7 g/dL 31 - 37 g/dL [facility] MCV (RBC) [Entitic vol] 99.7 fL 80 - 100 fL [facility] Nucleated RBC (Bld) [#/Vol] 0.00 10*3/uL [facility] Nucleated RBC/100 WBC (Bld) [Ratio] 0.0 % [facility] Platelet mean volume (Bld) [Entitic vol] 9.4 fL 9.4 - 12.4 fL [facility] Platelets (Bld) [#/Vol] 243 10*3/uL [facility] RBC (Bld) [#/Vol] 3.89 10*6/uL [facility] WBC (Bld) [#/Vol] 13.92 10*3/uL [facility] CTA Pulm Art and CT Abd [...] canal and mild foraminal narrowing at L4-L5. [facility] Negative for acute pulmonary embolism. Respiratory motion limits evaluation to the proximal segmental level. Multifocal pneumonia with trace left parapneumonic effusion. No acute abdominopelvic findings. RECOMMENDATIONS: Follow-up PA and lateral chest radiographs in 8 weeks. Workstation ID: [id number] [facility] Interface, Rad In Fu ji [...] radiographs in 8 weeks. Workstation ID: [id number] [facility] Chem 7on 04-14-2020 Anion gap [Moles/Vol] 13 mmol/L 10 - 2 0 mmol/L [facility] Chloride [Moles/Vol] 102 mmol/L 98 - 10 8 mmol/L [facility] Creatinine [Mass/Vol] 0.87 mg/dL 0.50 - 1.30 [facility] GFR/1.73 sq M predicted among non-blacks MDRD (S/P/Bld) [Vol rate/Area] The eGFR should be used for monitoring renal function only and not for medication dosing. [facility] GFR/1.73 sq M.predicted CKD-EPI (S/P/Bld) [Vol rate/Area] 94 >=60 mL/min/1.73 m2 [facility] Glucose [Mass/Vol] 84 mg/dL 65 - 99 mg/dL [facility] HCO3 [Moles/Vol] 26 mmol/L 21 - 32 mmol/L [facility] Interpretation and review of laboratory results Normal [facility] Potassium [Moles/Vol] 3.9 mmol/L 3.5 - 5.1 mmol/L [facility] Sodium [Moles/Vol] 137 mmol/L 135 - 145 mmol/L [facility] Urea nitrogen [Mass/Vol] 9 mg/dL 8 - 25 mg/dL [facility] Urea nitrogen/Creatinine [Mass ratio] 10.3 mg/mg [facility] EKGon 04-14-2020 Ordered by an unspec ified provider. [facility] Ordered by an unspec ified provider. [facility] LEGIONELLA ANTIGEN, URINEon 04-14-2020 Interpretation and review of laboratory results Normal [facility] L. pneumophila Ag Ql (U) Negative Negative for Legionella antigen [facility] Comment on above: COMMENT: Results may be affected if patient is on diuretics. INTERPRETATION OF RESULTS: Test detects Legionella pneumophilia serogroup 1 antigens in urine. Legionnaires disease cannot be ruled out since other serogroups and species may also cause disease. MRSA DNA Amplified Probeon 1 06-14-2019 Interpretation and review of laboratory results Normal [facility] MRSA DNA MOMO+probe Ql (Unsp spec) Negative MRSA NEGATIVE [facility] S.PNEUMONIAE URINE ANTIGENon 04-14-2020 Interpretation and review of laboratory results Normal [facility] S. pneumoniae Ag Ql (U) Negative Presumptive Negative for Pneumococcal pneumoniae [facility] Comment on above: A negative result rice ggests no current or recent pneumococcal infection. A negative result does not rule out Streptococcus pneumoniae infection since the antigen present in the sample may be below the detection limit of the test. TROPONINon 04-14-2020 Troponin T.cardiac [Mass/Vol] Normal [facility] Troponin T.cardiac [Mass/Vol] 8 ng/L <=22 [facility] BLOOD GAS, VBG WITH FULL WILLARD aJrod 04-13-2020 Base excess Calc (BldV) [Moles/Vol] 6.1 mmol/L High [facility] Calcium.ionized [Mass/Vol] 4.1 mg/dL Low 4.5 - 5.3 mg/dL [facility] Carboxyhemoglobin (BldA) [Mass fraction] 3.3 High <=1.5 % of total Hb [facility] Comment on above: Reference Ranges: [place] Non-smokers: <1.5% Smokers: 1.5-5.0% Heavy Smokers: 5.0-9.0% CO2 (BldV) [Partial pressure] 41.6 mm[Hg] [facility] Glucose [Mass/Vol] 102 mg/dL High 65 - 99 mg/dL [facility] HCO3 (Bld) [Moles/Vol] 30.0 mmol/L High 24 - 28 mmol/L [facility] Hematocrit (BldA) [Volume fraction] 42.4 % 41 - 53 % [facility] Hemoglobin (Bld) [Mass/Vol] 13.8 g/dL 13.5 - 18 g/dL [facility] Interpretation and review of laboratory results Abnormal [facility] Lactate [Moles/Vol] 1.1 mmol/L 0.6 - 2 mmol/L [facility] Methemoglobin (BldA) [Mass fraction] 0.7 % 0 - 2 % [facility] Oxygen (BldV) [Partial pressure] 68 mm[Hg] High [facility] Oxygen saturation in Venous blood 93.9 % High 40 - 70 % [facility] Oxyhemoglobin (BldA) [Mass fraction] 90.1 % No established reference range [facility] pH (BldV) 7.47 [pH] High [facility] Potassium [Moles/Vol] 3.3 mmol/L Low 3.5 - 5.1 mmol/L [facility] Sodium [Moles/Vol] 134 mmol/L Low 135 - 145 mmol/L [facility] CBC WITH AUTO DIFFERENTIALon 04-13-2020 Basophils (Bld) [#/Vol] 0.04 10*3/uL [facility] Basophils/100 WBC (Bld) 0.3 % [facility] Eosinophils (Bld) [#/Vol] 0.05 10*3/uL [facility] Eosinophils/100 WBC (Bld) 0.3 % [facility] Erythrocyte distribution width (RBC) [Entitic vol] 13.1 % 11.6 - 14.8 % [facility] Hematocrit (Bld) [Volume fraction] 43.6 % 41 - 53 % [facility] Hemoglobin (Bld) [Mass/Vol] 14.5 g/dL 13.5 - 17.5 g/dL [facility] Immature granulocytes (Bld) [#/Vol] 0.08 10*3/uL [facility] Immature granulocytes/100 WBC (Bld) 0.60 % [facility] Comment on above: The IG parameter is the percentage of metamyelocytes, myelocytes and promyelocytes. An immature granulocyte count (IG) of 1% or more suggests the possibility of infection, an IG count of 3% is very likely related to an infection. Interpretation and review of laboratory results Abnormal [facility] Lymphocytes (Bld) [#/Vol] 1.08 10*3/uL [facility] Lymphocytes/100 WBC (Bld) 7.4 % [facility] MCH (RBC) [Entitic mass] 31.9 pg 26 - 34 pg [facility] MCHC (RBC) [Mass/Vol] 33.3 g/dL 31 - 37 g/dL [facility] MCV (RBC) [Entitic vol] 96.0 fL 80 - 100 fL [facility] Monocytes (Bld) [#/Vol] 0.98 10*3/uL High [facility] Monocytes/100 WBC (Bld) 6.8 % [facility] Neutrophils (Bld) [#/Vol] 12.28 10*3/uL High [facility] Neutrophils/100 WBC (Bld) 84.6 % [facility] Nucleated RBC (Bld) [#/Vol] 0.00 10*3/uL [facility] Nucleated RBC/100 WBC (Bld) [Ratio] 0.0 % [facility] Platelet mean volume (Bld) [Entitic vol] 9.0 fL Low 9.4 - 12.4 fL [facility] Platelets (Bld) [#/Vol] 290 10*3/uL [facility] RBC (Bld) [#/Vol] 4.54 10*6/uL [facility] ealt WBC (Bld) [#/Vol] 14.51 10*3/uL [facility] COVID-19/Influenza A,B Molec ularon 04-13-2020 Influenza A Not Detected Not Detected [facility] Influenza B Not Detected Not Detected [facility] Interpretation and review of laboratory results Normal [facility] SARS-CoV-2 Not Detected Not Detected [facility] This test was perfor med [...] the following links: For Healthcare Providers: https://www.fda.gov/media /313529/download For Patients: https://www.fda.gov/media /982256/download [facility] Chem 7on 04-13-2020 Anion gap [Moles/Vol] 12 mmol/L 10 - 2 0 mmol/L [facility] Chloride [Moles/Vol] 95 mmol/L Low 98 - 10 8 mmol/L [facility] Creatinine [Mass/Vol] 0.80 mg/dL 0.50 - 1.30 [facility] GFR/1.73 sq M predicted among non-blacks MDRD (S/P/Bld) [Vol rate/Area] The eGFR should be used for monitoring renal function only and not for medication dosing. [facility] GFR/1.73 sq M.predicted CKD-EPI (S/P/Bld) [Vol rate/Area] 98 >=60 mL/min/1.73 m2 [facility] Glucose [Mass/Vol] 100 mg/dL High 65 - 99 mg/dL [facility] HCO3 [Moles/Vol] 28 mmol/L 21 - 32 mmol/L [facility] Interpretation and review of laboratory results Abnormal [facility] Potassium [Moles/Vol] 3.1 mmol/L Low 3.5 - 5.1 mmol/L [facility] Sodium [Moles/Vol] 132 mmol/L Low 135 - 145 mmol/L [facility] Urea nitrogen [Mass/Vol] 8 mg/dL 8 - 25 mg/dL [facility] Urea nitrogen/Creatinine [Mass ratio] 10.0 mg/mg [facility] DRUGS OF ABUSE SCREEN, URINE on 04-13-2020 Amphetamines Ql (U) None Detected None Detected [facility] Comment on above: Urine Amphetamine Cu toff: < 1000 ng/mL = None Detected Barbiturates Screen Ql (U) None Detected None Detected [facility] Comment on above: Urine Barbiturates C utoff: < 200 ng/mL = None Detected Benzodiazepines Ql (U) None Detected None Detected [facility] Comment on above: Urine Benzodiazepine Cutoff: < 200 ng/mL = None Detected Buprenorphine Ql (U) Positive Abnormal [facility] above: Urine Buprenorphine Cutoff: < 5 ng/mL = None Detected Cannabinoids Screen Ql (U) None Detected None Detected [facility] Comment on above: Urine Cannabinoids C utoff: < 50 ng/mL = None Detected Cocaine Ql (U) Positive Abnormal None Detected [facility] Comment on above: Urine Cocaine Cutoff : < 300 ng/mL = None Detected Fentanyl+Norfentanyl Screen Ql (U) Positive Abnormal None Detected [facility] Comment on above: Urine Fentanyl Cutof f: < 1 ng/mL = None Detected Interpretation and review of laboratory results Abnormal [facility] Methadone Screen Ql (U) None Detected None Detected [facility] Comment on above: Urine Methadone Cuto ff: < 300 ng/mL = None Detected Opiates Screen Ql (U) Positive Abnormal None Detected [facility] Comment on above: Urine Opiates Cutoff : < 300 ng/mL = None Detected Oxycodone Ql (U) None Detected None Detected [facility] Comment on above: Urine Oxycodone Cuto ff: < 100 ng/mL = None Detected Screen results shoul d be used for treatment purposes only. Specimen will be kept for 2 weeks, if the sample is adequate. Confirmation testing can be initiated by calling the lab within 2 weeks. [facility] ECG 12-LEADon 04-13-2020 Armando Leal MD 04/13/2020 5:12 PM ECG 12 Lead Date/Time: 04/13/2020 5:12 PM Performed by: Armando Leal MD Authorized by: Armando Leal MD Interpreted by ED attending physician Rhythm: sinus rhythm and sinus tachycardia BPM: 114 normal ID interval normal QRS interval normal QT interval Clinical impression: sinus tachycardia [facility] Hepatic Function Panel (LFT) on 04-13-2020 Albumin [Mass/Vol] 3.6 g/dL 3.2 - 5.2 g/dL [facility] ALP [Catalytic activity/Vol] 76 U/L 40 - 150 U/L [facility] ALT [Catalytic activity/Vol] 26 U/L 0 - 40 U/L [facility] AST [Catalytic activity/Vol] 31 U/L 0 - 45 U/L [facility] Bilirubin [Mass/Vol] 0.5 mg/dL 0 - 1.3 mg/dL [facility] Bilirubin.conjugated [Mass/Vol] 0.2 mg/dL 0 - 0.4 mg/dL [facility] Protein [Mass/Vol] 6.3 g/dL 6 - 8 g/dL [facility] alth Lactic Acid, Plasmaon 2019 Interpretation and review of laboratory results Normal [facility] Lactate [Moles/Vol] 1.3 mmol/L 0.6 - 2 mmol/L [facility] Lipaseon 04-13-2020 Lipase [Catalytic activity/Vol] 27 U/L 15 - 65 U/L [facility] NT Pro BNPon 04-13-2020 Interpretation and review of laboratory results Abnormal [facility] Natriuretic peptide.B prohormone N-Terminal [Mass/Vol] 739 pg/mL High 0 - 300 pg/mL [facility] Pride Study Cut-offs Rule In: < /= 50 Years >450 pg/mL 51 Years - 75 Years >900 pg/mL 76 Years - 99 Years >1800 pg/mL Rule Out: All patients <300 pg/mL [facility] Otheron 04-13-2020 Extra Tube Hold for add-ons. [facility] Comment on above: Auto resulted. Interpretation and review of laboratory results Normal [facility] PT/INRon 04-13-2020 INR Coag (PPP) [Relative time] 1.1 {INR} [facility] Interpretation and review of laboratory results Normal [facility] PT Coag (PPP) [Time] 13.9 s [facility] During the induction phase of oral anticoagulation, the INR may not reflect the anticoagulation status of the patient. Therapeutic ranges for INR's are: Most clinical situations: INR 2.0-3.0 Mechanical Prosthetic Valve: INR 2.5-3.5 Critical: INR >5.0 [facility] TROPONINon 04-13-2020 Troponin T.cardiac [Mass/Vol] 16 ng/L <=22 [facility] Troponin T.cardiac [Mass/Vol] No biomarker evidence of cardiac injury. [facility] Troponin T.cardiac [Mass/Vol] 1 ng/L < = -/+ 7 change [facility] Troponin T.cardiac [Mass/Vol] 15 ng/L <=22 [facility] Troponin T.cardiac [Mass/Vol] Normal [facility] TSH with Reflex Free T4on Interpretation and review of laboratory results Normal [facility] TSH Qn 0.67 m[IU]/L [facility] URINALYSISon 04-13-2020 Bacteria Auto Ql (U) None Seen None Se en /hpf [facility] Bilirubin Ql (U) Negative Negative [facility] Clarity Refractometry automated (U) Clear Clear [facility] Color (U) Yellow Colorless, Yellow [facility] Glucose Auto test strip (U) [Mass/Vol] Negative Negative mg/dL [facility] Hemoglobin Auto test strip Ql (U) Negative Negative [facility] Interpretation and review of laboratory results Abnormal [facility] Ketones (U) [Mass/Vol] Negative Negative mg/dL [facility] Leukocyte esterase Auto test strip Ql (U) Negative Negative [facility] Mucus Auto (Urine sed) [#/Area] Rare None Seen, Rare /lpf [facility] Nitrite Auto test strip Ql (U) Negative Negative [facility] pH (U) 6.0 [pH] [facility] Protein (U) [Mass/Vol] Negative Negative mg/dL [facility] Specific gravity (U) [Rel density] 1.020 [facility] Urobilinogen (U) [Mass/Vol] 2.0 mg/dL Abnormal <2.0 [facility] WBC Auto (Urine sed) [#/Area] 1 [facility] Microscopic examinat ion is performed on all urinalysis samples and only positive findings are reported. The test for blood on the chemical analytic portion of urinalysis may also be positive due to hemoglobinuria and myoglobinuria and if red blood cells are present they are quantified by microscopic examination. [facility] XR Chest 1 Viewon 04-13-2020 [...] bacterial, or atypical/viral pneumonia. Workstation ID: [id number] [facility] 1. New bilateral air space disease. Differential considerations would include multifocal bacterial, or atypical/viral pneumonia. Workstation ID: [id number] [facility] EXAMINATION: ONE XRA Y VIEW [...] markings are distinct. Osseous structures are stable. [facility] Basic Metabolic Panelon 11-0 Anion gap [Moles/Vol] 14 mmol/L 10 - 2 0 mmol/L [facility] Calcium [Mass/Vol] 8.4 mg/dL 8.4 - 10. 2 mg/dL [facility] Chloride [Moles/Vol] 99 mmol/L 98 - 10 8 mmol/L [facility] Creatinine [Mass/Vol] 0.75 mg/dL 0.50 - 1.30 [facility] GFR/1.73 sq M predicted among non-blacks MDRD (S/P/Bld) [Vol rate/Area] The eGFR should be used for monitoring renal function only and not for medication dosing. [facility] GFR/1.73 sq M.predicted CKD-EPI (S/P/Bld) [Vol rate/Area] 100 >=60 mL/min/1.73 m2 [facility] Glucose [Mass/Vol] 172 mg/dL High 65 - 99 mg/dL [facility] HCO3 [Moles/Vol] 25 mmol/L 21 - 32 mmol/L [facility] Interpretation and review of laboratory results Abnormal [facility] Potassium [Moles/Vol] 3.7 mmol/L 3.5 - 5.1 mmol/L [facility] Sodium [Moles/Vol] 134 mmol/L Low 135 - 145 mmol/L [facility] Urea nitrogen [Mass/Vol] 10 mg/dL 8 - 25 mg/dL [facility] Urea nitrogen/Creatinine [Mass ratio] 13.3 mg/mg [facility] CBCon 04-12-2020 Erythrocyte distribution width (RBC) [Entitic vol] 12.9 % 11.6 - 14.8 % [facility] Hematocrit (Bld) [Volume fraction] 38.0 % Low 41 - 53 % [facility] Hemoglobin (Bld) [Mass/Vol] 12.5 g/dL Low 13.5 - 17.5 g/dL [facility] Interpretation and review of laboratory results Abnormal [facility] MCH (RBC) [Entitic mass] 32.1 pg 26 - 34 pg [facility] MCHC (RBC) [Mass/Vol] 32.9 g/dL 31 - 37 g/dL [facility] MCV (RBC) [Entitic vol] 97.4 fL 80 - 100 fL [facility] Nucleated RBC (Bld) [#/Vol] 0.00 10*3/uL [facility] Nucleated RBC/100 WBC (Bld) [Ratio] 0.0 % [facility] Platelet mean volume (Bld) [Entitic vol] 9.2 fL Low 9.4 - 12.4 fL [facility] Platelets (Bld) [#/Vol] 253 10*3/uL [facility] RBC (Bld) [#/Vol] 3.90 10*6/uL Low [facility] WBC (Bld) [#/Vol] 7.87 10*3/uL [facility] DRUGS OF ABUSE SCREEN, URINE on 04-12-2020 Amphetamines Ql (U) None Detected None Detected [facility] Comment on above: Urine Amphetamine Cu toff: < 1000 ng/mL = None Detected Barbiturates Screen Ql (U) None Detected None Detected [facility] Comment on above: Urine Barbiturates C utoff: < 200 ng/mL = None Detected Benzodiazepines Ql (U) None Detected None Detected [facility] Comment on above: Urine Benzodiazepine Cutoff: < 200 ng/mL = None Detected Buprenorphine Ql (U) Positive Abnormal None Detected [facility] Comment on above: Urine Buprenorphine Cutoff: < 5 ng/mL = None Detected Cannabinoids Screen Ql (U) None Detected None Detected [facility] Comment on above: Urine Cannabinoids C utoff: < 50 ng/mL = None Detected Cocaine Ql (U) Positive Abnormal None Detected [facility] Comment on above: Urine Cocaine Cutoff : < 300 ng/mL = None Detected Fentanyl+Norfentanyl Screen Ql (U) Positive Abnormal None Detected [facility] Comment on above: Urine Fentanyl Cutof f: < 1 ng/mL = None Detected Interpretation and review of laboratory results Abnormal [facility] Methadone Screen Ql (U) None Detected None Detected [facility] Comment on above: Urine Methadone Cuto ff: < 300 ng/mL = None Detected Opiates Screen Ql (U) None Detected None Detect ed [facility] Comment on above: Urine Opiates Cutoff : < 300 ng/mL = None Detected Oxycodone Ql (U) None Detected None Detected [facility] Comment on above: Urine Oxycodone Cuto ff: < 100 ng/mL = None Detected Screen results shoul d be used for treatment purposes only. Specimen will be kept for 2 weeks, if the sample is adequate. Confirmation testing can be initiated by calling the lab within 2 weeks. [facility] Magnesium Levelon 04-12-2020 Interpretation and review of laboratory results Normal [facility] Magnesium [Mass/Vol] 1.9 mg/dL 1.6 - 2 .4 mg/dL [facility] Phosphoruson 04-12-2020 Interpretation and review of laboratory results Abnormal [facility] Phosphate [Mass/Vol] 2.6 mg/dL Low 2.7 - 4 .5 mg/dL [facility] BLOOD GAS, VBG WITH FULL WILLARD Jarod 04-11-2020 Base excess Calc (BldV) [Moles/Vol] 4.6 mmol/L High [facility] Calcium.ionized [Mass/Vol] 4.4 mg/dL Low 4.5 - 5.3 mg/dL [facility] Carboxyhemoglobin (BldA) [Mass fraction] 3.7 High <=1.5 % of total Hb [facility] Comment on above: Reference Ranges: Suburb Non-smokers: <1.5% Smokers: 1.5-5.0% Heavy Smokers: 5.0-9.0% CO2 (BldV) [Partial pressure] 54.5 mm[Hg] High [facility] Glucose [Mass/Vol] 103 mg/dL High 65 - 99 mg/dL [facility] HCO3 (Bld) [Moles/Vol] 30.8 mmol/L High 24 - 28 mmol/L [facility] Hematocrit (BldA) [Volume fraction] 44.8 % 41 - 53 % [facility] Hemoglobin (Bld) [Mass/Vol] 14.6 g/dL 13.5 - 18 g/dL [facility] Interpretation and review of laboratory results Abnormal [facility] Lactate [Moles/Vol] 1.4 mmol/L 0.6 - 2 mmol/L [facility] Methemoglobin (BldA) [Mass fraction] 0.6 % 0 - 2 % [facility] Oxygen (BldV) [Partial pressure] 28 mm[Hg] [facility] Oxygen saturation in Venous blood 50.7 % 40 - 70 % [facility] Oxyhemoglobin (BldA) [Mass fraction] 48.5 % No established reference range [facility] pH (BldV) 7.37 [pH] [facility] Potassium [Moles/Vol] 3.5 mmol/L 3.5 - 5.1 mmol/L [facility] Sodium [Moles/Vol] 136 mmol/L 135 - 145 mmol/L [facility] 04-11-2020 Anion gap [Moles/Vol] 14 mmol/L 10 - 2 0 mmol/L [facility] Calcium [Mass/Vol] 9.0 mg/dL 8.4 - 10. 2 mg/dL [facility] Chloride [Moles/Vol] 97 mmol/L Low 98 - 10 8 mmol/L [facility] Creatinine [Mass/Vol] 0.86 mg/dL 0.50 - 1.30 [facility] GFR/1.73 sq M predicted among non-blacks MDRD (S/P/Bld) [Vol rate/Area] The eGFR should be used for monitoring renal function only and not for medication dosing. [facility] GFR/1.73 sq M.predicted CKD-EPI (S/P/Bld) [Vol rate/Area] 95 >=60 mL/min/1.73 m2 [facility] Glucose [Mass/Vol] 100 mg/dL High 65 - 99 mg/dL [facility] HCO3 [Moles/Vol] 30 mmol/L 21 - 32 mmol/L [facility] Interpretation and review of laboratory results Abnormal [facility] Potassium [Moles/Vol] 3.7 mmol/L 3.5 - 5.1 mmol/L [facility] Sodium [Moles/Vol] 137 mmol/L 135 - 145 mmol/L [facility] Urea nitrogen [Mass/Vol] 11 mg/dL 8 - 25 mg/dL [facility] Urea nitrogen/Creatinine [Mass ratio] 12.8 mg/mg [facility] CBC WITH AUTO DIFFERENTIALon 04-11-2020 Basophils (Bld) [#/Vol] 0.05 10*3/uL [facility] Basophils/100 WBC (Bld) 0.4 % [facility] Eosinophils (Bld) [#/Vol] 0.51 10*3/uL High [facility] Eosinophils/100 WBC (Bld) 3.6 % [facility] Erythrocyte distribution width (RBC) [Entitic vol] 12.9 % 11.6 - 14.8 % [facility] Hematocrit (Bld) [Volume fraction] 43.3 % 41 - 53 % [facility] Hemoglobin (Bld) [Mass/Vol] 14.3 g/dL 13.5 - 17.5 g/dL [facility] Immature granulocytes (Bld) [#/Vol] 0.04 10*3/uL [facility] Immature granulocytes/100 WBC (Bld) 0.30 % [facility] Comment on above: The IG parameter is the percentage of metamyelocytes, myelocytes and promyelocytes. An immature granulocyte count (IG) of 1% or more suggests the possibility of infection, an IG count of 3% is very likely related to an infection. Interpretation and review of laboratory results Abnormal [facility] Lymphocytes (Bld) [#/Vol] 1.24 10*3/uL [facility] Lymphocytes/100 WBC (Bld) 8.8 % [facility] MCH (RBC) [Entitic mass] 32.4 pg 26 - 34 pg [facility] MCHC (RBC) [Mass/Vol] 33.0 g/dL 31 - 37 g/dL [facility] MCV (RBC) [Entitic vol] 98.0 fL 80 - 100 fL [facility] Monocytes (Bld) [#/Vol] 1.04 10*3/uL High [facility] Monocytes/100 WBC (Bld) 7.4 % [facility] Neutrophils (Bld) [#/Vol] 11.22 10*3/uL High [facility] Neutrophils/100 WBC (Bld) 79.5 % [facility] Nucleated RBC (Bld) [#/Vol] 0.00 10*3/uL [facility] Nucleated RBC/100 WBC (Bld) [Ratio] 0.0 % [facility] Platelet mean volume (Bld) [Entitic vol] 9.6 fL 9.4 - 12.4 fL [facility] Platelets (Bld) [#/Vol] 296 10*3/uL [facility] RBC (Bld) [#/Vol] 4.42 10*6/uL Low [facility] ealth WBC (Bld) [#/Vol] 14.10 10*3/uL High [facility] COVID-19/Influenza A,B Molec ularon 04-11-2020 Influenza A Not Detected Not Detected [facility] Influenza B Not Detected Not Detected [facility] Interpretation and review of laboratory results Normal [facility] SARS-CoV-2 Not Detected Not Detected [facility] This test was perfor med under the FDA's Emergency Use Authorization (EUA). Testing was performed using the Dimit[employer] panda SARS-CoV-2 & Influenza A/B Nucleic Acid Test on the panda Andja System. This test has not been approved for use in asymptomatic patients and its performance in this patient population has not been evaluated. Negative results do not rule out the presence of SARS-CoV-2, influenza A, and/or influenza B. Fact sheets for the EUA can be found at the following links: For Healthcare Providers: https://www.fda.gov/media /588018/download For Patients: https://www.fda.gov/media /209529/download [facility] ECG 12-LEADon 04-11-2020 Maxime Liz [...] Clinical impression: normal ECG and sinus tachycardia [facility] Otheron 04-11-2020 Extra Tube Hold for add-ons. [facility] Comment on above: Auto resulted. XR [...] contours are stable. Osseous structures appear normal. [facility] 1. Stable chest radiograph, without evidence of acute cardiopulmonary disease 2. Scar versus chronic atelectasis, right lung base Workstation ID: [id number] [facility] Interface, Rad In Fu ji [...] atelectasis, right lung base Workstation ID: [id number] [facility] XR CHEST AP/PA AND LATon 1. Emphysema. No superimposed acute pulmonary abnormality. Workstation ID: [id number] [facility] EXAMINATION: TWO XRA Y VIEWS [...] pneumothorax, or evidence of airspace pulmonary edema. [facility], Qasim Buckley [employer] Speechq - [...] No superimposed acute pulmonary abnormality. Workstation ID: [id number] [facility] BMPon 01-14-2020 Anion gap [Moles/Vol] 14 mmol/L 10 - 2 0 mmol/L [facility] Calcium [Mass/Vol] 8.8 mg/dL 8.4 - 10. 2 mg/dL [facility] Chloride [Moles/Vol] 107 mmol/L 98 - 10 8 mmol/L [facility] Creatinine [Mass/Vol] 0.98 mg/dL 0.50 - 1.30 [facility] GFR/1.73 sq M predicted among non-blacks MDRD (S/P/Bld) [Vol rate/Area] The eGFR should be used for monitoring renal function only and not for medication dosing. [facility] GFR/1.73 sq M.predicted CKD-EPI (S/P/Bld) [Vol rate/Area] 84 >=60 mL/min/1.73 m2 [facility] Glucose [Mass/Vol] 106 mg/dL High 65 - 99 mg/dL [facility] HCO3 [Moles/Vol] 27 mmol/L 21 - 32 mmol/L [facility] Interpretation and review of laboratory results Abnormal [facility] Potassium [Moles/Vol] 4.0 mmol/L 3.5 - 5.1 mmol/L [facility] Sodium [Moles/Vol] 144 mmol/L 135 - 145 mmol/L [facility] Urea nitrogen [Mass/Vol] 10 mg/dL 8 - 25 mg/dL [facility] Urea nitrogen/Creatinine [Mass ratio] 10.2 mg/mg [facility] CBC WITH AUTO DIFFERENTIALon 01-14-2020 Basophils (Bld) [#/Vol] 0.05 10*3/uL [facility] Basophils/100 WBC (Bld) 0.7 % [facility] Eosinophils (Bld) [#/Vol] 0.22 10*3/uL [facility] Eosinophils/100 WBC (Bld) 3.2 % [facility] Erythrocyte distribution width (RBC) [Entitic vol] 13.5 % 11.6 - 14.8 % [facility] Hematocrit (Bld) [Volume fraction] 45.8 % 41 - 53 % [facility] Hemoglobin (Bld) [Mass/Vol] 14.9 g/dL 13.5 - 17.5 g/dL [facility] Immature granulocytes (Bld) [#/Vol] 0.03 10*3/uL [facility] Immature granulocytes/100 WBC (Bld) 0.40 % [facility] Comment on above: The IG parameter is the percentage of metamyelocytes, myelocytes and promyelocytes. An immature granulocyte count (IG) of 1% or more suggests the possibility of infection, an IG count of 3% is very likely related to an infection. Interpretation and review of laboratory results Abnormal [facility] Lymphocytes (Bld) [#/Vol] 1.78 10*3/uL [facility] Lymphocytes/100 WBC (Bld) 25.8 % [facility] MCH (RBC) [Entitic mass] 32.4 pg 26 - 34 pg [facility] MCHC (RBC) [Mass/Vol] 32.5 g/dL 31 - 37 g/dL [facility] MCV (RBC) [Entitic vol] 99.6 fL 80 - 100 fL [facility] Monocytes (Bld) [#/Vol] 0.65 10*3/uL [facility] Monocytes/100 WBC (Bld) 9.4 % [facility] Neutrophils (Bld) [#/Vol] 4.16 10*3/uL [facility] Neutrophils/100 WBC (Bld) 60.5 % [facility] Nucleated RBC (Bld) [#/Vol] 0.00 10*3/uL [facility] Nucleated RBC/100 WBC (Bld) [Ratio] 0.0 % [facility] Platelet mean volume (Bld) [Entitic vol] 8.9 fL Low 9.4 - 12.4 fL [facility] Platelets (Bld) [#/Vol] 251 10*3/uL [facility] RBC (Bld) [#/Vol] 4.60 10*6/uL [facility] WBC (Bld) [#/Vol] 6.89 10*3/uL [facility] 2019 Interpretation and review of laboratory results Normal [facility] SARS-CoV-2 Not Detected Not Detected [facility] Comment on above: This test [...] at the following links: For Healthcare Providers: https://www.fda.gov/media/895406/download For Patients: https://www.fda.gov/media/368464/download ECG 12-LEADon 01-14-2020 Teresa Anderson MD 01/13 [...] segments normal T Waves: T waves normal ID Interval: 150 QRS Interval: 84 QT Interval: 412 Clinical impression: normal ECG Comments: There is a wandering baseline present in leads II, III and aVF aVL, likely due to patient movement. The remainder the patient's EKG remains unremarkable. [facility] EKGon 01-14-2020 Ordered by an unspec ified provider. [facility] Otheron 01-14-2020 Extra Tube Hold for add-ons. [facility] Comment on above: Auto resulted. TROPONINon 01-14-2020 Troponin T.cardiac [Mass/Vol] Normal [facility] Troponin T.cardiac [Mass/Vol] 11 ng/L <=22 [facility] XR Chest 1 Viewon 01-14-2020 1. Emphysema. No superimposed acute radiographic finding to account for patient's shortness of breath. Workstation ID: [id number] [facility] EXAMINATION: ONE XRA Y VIEW [...] vasculature in the upper lobes is attenuated. [facility] Qasim Bahena [employer] [...] patient's shortness of breath. Workstation ID: [id number] [facility] XR CHEST AP/PA AND LATon 1. No acute process identified. 2. Emphysematous change. 3. Suspected right-sided pulmonary nodule or nodules. CT of the chest without contrast is recommended for further evaluation. 4. Question enlargement of the ascending thoracic aorta. RECOMMENDATIONS: CT chest without contrast. [facility] Work[facility] ID: [id number] [facility] EXAMINATION: TWO XRA Y VIEWS [...] is prominence of the ascending thoracic aorta. [facility], [facility] In [employer] Speechq - 12/29/2019 [...] thoracic aorta. RECOMMENDATIONS: CT chest without contrast. [facility] Workstation ID: [id number] [facility] Otheron 12-12-2019 Severe osteoarthriti s of the right hip, as with prior. Workstation ID: [id number] [facility] EXAMINATION: ONE XRA Y VIEW [...] gas. Bony mineralization is within normal limits. [facility], [facility] [employer] Speech[employer] - 12/12/2019 [...] hip, as with prior. Workstation ID: [id number] [facility] Basic Metabolic Panelon 10-07 Anion gap [Moles/Vol] 14 mmol/L 10 - 2 0 mmol/L [facility] Calcium [Mass/Vol] 8.7 mg/dL 8.4 - 10. 2 mg/dL [facility] Chloride [Moles/Vol] 107 mmol/L 98 - 10 8 mmol/L [facility] Creatinine [Mass/Vol] 0.69 mg/dL 0.50 - 1.30 [facility] GFR/1.73 sq M predicted among non-blacks MDRD (S/P/Bld) [Vol rate/Area] The eGFR should be used for monitoring renal function only and not for medication dosing. [facility] GFR/1.73 sq M.predicted CKD-EPI (S/P/Bld) [Vol rate/Area] 104 >=60 mL/min/1.73 m2 [facility] Glucose [Mass/Vol] 86 mg/dL 65 - 99 mg/dL [facility] HCO3 [Moles/Vol] 24 mmol/L 21 - 32 mmol/L [facility] Interpretation and review of laboratory results Abnormal [facility] Potassium [Moles/Vol] 4.2 mmol/L 3.5 - 5.1 mmol/L [facility] Comment on above: Slightly Hemolyzed Sodium [Moles/Vol] 141 mmol/L 135 - 145 mmol/L [facility] Urea nitrogen [Mass/Vol] 15 mg/dL 8 - 25 mg/dL [facility] Urea nitrogen/Creatinine [Mass ratio] 21.7 mg/mg High [facility] CBCon 11-03-2019 Erythrocyte distribution width (RBC) [Entitic vol] 12.9 % 11.6 - 14.8 % [facility] Hematocrit (Bld) [Volume fraction] 44.9 % 41 - 53 % [facility] Hemoglobin (Bld) [Mass/Vol] 14.6 g/dL 13.5 - 17.5 g/dL [facility] Interpretation and review of laboratory results Abnormal [facility] MCH (RBC) [Entitic mass] 32.7 pg 26 - 34 pg [facility] MCHC (RBC) [Mass/Vol] 32.5 g/dL 31 - 37 g/dL [facility] MCV (RBC) [Entitic vol] 100.4 fL High 80 - 100 fL [facility] Nucleated RBC (Bld) [#/Vol] 0.00 10*3/uL [facility] Nucleated RBC/100 WBC (Bld) [Ratio] 0.0 % [facility] Platelet mean volume (Bld) [Entitic vol] 9.9 fL 9.4 - 12.4 fL [facility] Platelets (Bld) [#/Vol] 203 10*3/uL [facility] RBC (Bld) [#/Vol] 4.47 10*6/uL Low [facility] WBC (Bld) [#/Vol] 5.25 10*3/uL [facility] BMPon 11-02-2019 Anion gap [Moles/Vol] 16 mmol/L 10 - 2 0 mmol/L [facility] Calcium [Mass/Vol] 9.1 mg/dL 8.4 - 10. 2 mg/dL [facility] Chloride [Moles/Vol] 101 mmol/L 98 - 10 8 mmol/L [facility] Creatinine [Mass/Vol] 0.81 mg/dL 0.50 - 1.30 [facility] GFR/1.73 sq M predicted among non-blacks MDRD (S/P/Bld) [Vol rate/Area] The eGFR should be used for monitoring renal function only and not for medication dosing. [facility] GFR/1.73 sq M.predicted CKD-EPI (S/P/Bld) [Vol rate/Area] 97 >=60 mL/min/1.73 m2 [facility] Glucose [Mass/Vol] 100 mg/dL High 65 - 99 mg/dL [facility] HCO3 [Moles/Vol] 25 mmol/L 21 - 32 mmol/L [facility] Interpretation and review of laboratory results Abnormal [facility] Potassium [Moles/Vol] 4.0 mmol/L 3.5 - 5.1 mmol/L [facility] Sodium [Moles/Vol] 138 mmol/L 135 - 145 mmol/L [facility] Urea nitrogen [Mass/Vol] 16 mg/dL 8 - 25 mg/dL [facility] Urea nitrogen/Creatinine [Mass ratio] 19.8 mg/mg [facility] CBC WITH AUTO DIFFERENTIALon 11-02-2019 Basophils (Bld) [#/Vol] 0.08 10*3/uL [facility] Basophils/100 WBC (Bld) 1.2 % [facility] Eosinophils (Bld) [#/Vol] 0.33 10*3/uL [facility] Eosinophils/100 WBC (Bld) 4.9 % [facility] Erythrocyte distribution width (RBC) [Entitic vol] 12.9 % 11.6 - 14.8 % [facility] Hematocrit (Bld) [Volume fraction] 47.2 % 41 - 53 % [facility] Hemoglobin (Bld) [Mass/Vol] 15.6 g/dL 13.5 - 17.5 g/dL [facility] Immature granulocytes (Bld) [#/Vol] 0.02 10*3/uL [facility] Immature granulocytes/100 WBC (Bld) 0.30 % [facility] Comment on above: The IG parameter is the percentage of metamyelocytes, myelocytes and promyelocytes. An immature granulocyte count (IG) of 1% or more suggests the possibility of infection, an IG count of 3% is very likely related to an infection. Lymphocytes (Bld) [#/Vol] 1.84 10*3/uL [facility] Lymphocytes/100 WBC (Bld) 27.1 % [facility] MCH (RBC) [Entitic mass] 32.1 pg 26 - 34 pg [facility] MCHC (RBC) [Mass/Vol] 33.1 g/dL 31 - 37 g/dL [facility] MCV (RBC) [Entitic vol] 97.1 fL 80 - 100 fL [facility] Monocytes (Bld) [#/Vol] 0.58 10*3/uL [facility] Monocytes/100 WBC (Bld) 8.5 % [facility] Neutrophils (Bld) [#/Vol] 3.94 10*3/uL [facility] Neutrophils/100 WBC (Bld) 58.0 % [facility] Nucleated RBC (Bld) [#/Vol] 0.00 10*3/uL [facility] Nucleated RBC/100 WBC (Bld) [Ratio] 0.0 % [facility] Platelet mean volume (Bld) [Entitic vol] 9.5 fL 9.4 - 12.4 fL [facility] Platelets (Bld) [#/Vol] 233 10*3/uL [facility] RBC (Bld) [#/Vol] 4.86 10*6/uL [facility] WBC (Bld) [#/Vol] 6.79 10*3/uL [facility] COVID-19, Molecularon 2019 Interpretation and review of laboratory results Normal [facility] SARS-CoV-2 Not Detected Not Detected [facility] Comment on above: This test [...] at the following links: For Healthcare Providers: https://www.fda.gov/media/880264/download For Patients: https://www.fda.gov/media/459609/download D-DIMER, QUANTITATIVEon 10-07 Fibrin D-dimer FEU (PPP) [Mass/Vol] 0.42 0.27 - 0.49 mcg/mL FEU [facility] Interpretation and review of laboratory results Normal [facility] A D-dimer concentrat ion of <0.5 micrograms per milliliter FEU is considered a low probability for pulmonary embolus (PE) and deep venous thrombosis (DVT). Results of this test should always be interpreted in conjunction with the patient's medical history,clinical presentation, and other findings. Clinical diagnosis should not be based on the results of the D-dimer alone. [facility] ECG 12-LEADon 11-02-2019 Atrial Rate 75 BPM [facility] P [place] -10 degrees [facility] P-R Interval 158 ms [facility] Q-T Interval 364 ms [facility] QRS Duration 94 ms [facility] QTC Calculation (Bezet) 406 ms [facility] R [place] 3 degrees [facility] T [place] -12 degrees [facility] Ventricular Rate 75 BPM [facility] th Normal sinus rhythm Inferior infarct , age undetermined Abnormal ECG When compared with ECG of 11-AUG-2019 12:15, Inferior infarct is now Present T wave inversion now evident in Inferior leads T wave amplitude has increased in Lateral leads Confirmed by Physician, ED ([id number]), non linear editor BILL SANTACRUZ ([id number]) on 11/02/2019 1:02:05 PM [facility] Interpretation and review of laboratory results Abnormal [facility] Angelika Oswald MD 11/02/2019 12:25 [...] criteria for WPW, Brugada, HOCM or ARVD [facility] ECHOCARDIOGRAM COMPLETEon Transthoracic Echocardiogram Patient: KAROLINA Vazquez [facility] Rec#: [id number] (Age): 1960(59y) Height: 187(cm)/73(in) Study Date: 11/02/2019 Weight: 63.5(kg)/140(lb Room#: 56 BSA: [id number] Type: Inpatient Loc: [facility] Echo Lab Sex: M Reading: Jeremiah Romero D.O. Referring: Lisa Howe Journeyman Powerhouse Operator: LATISHA DURAN History: Asthma. COPD. Hypertension. Diagnosis: ICD-10-PCS Syncope and collapse (R55) Syncope (780.2) CPT Code(s): ECHO COMPLETE W/ DOPPLER (42589) Study Quality The study quality is technically [...] at 11/02/2019 16:05:30 by: Jeremiah Romero D.O. [facility] Interface, Rad In [facility]chopacs - 11/02/2019 4:52 PM EDT Transthoracic Echocardiogram Patient: KAROLINA Vazquez [facility] Rec#: [id number] (Age): 1960(59y) Height: 187(cm)/73(in) Study Date: 11/02/2019 Weight: 63.5(kg)/140(lb Room#: 56 BSA: [id number] Type: Inpatient Loc: [facility] Echo Lab Sex: M Reading: Jeremiah Romero D.O. Referring: Lisa Howe Journeyman Powerhouse Operator: LATISHA DURAN History: Asthma. COPD. Hypertension. Diagnosis: ICD-10-PCS Syncope and collapse (R55) Syncope (780.2) CPT Code(s): ECHO COMPLETE W/ DOPPLER (23647) Study Quality The study quality is technically [...] at 11/02/2019 16:05:30 by: Jeremiah Romero D.O. [facility] EKGon 11-02-2019 Ordered by an unspec ified provider. [facility] Hemoglobin A1con 11-02-2019 Average glucose Estimated from glycated hemoglobin mass conc (Bld) 111 mg/dL 74 - 114 mg/dL [facility] HbA1c (Bld) [Mass fraction] 5.5 % 4.2 - 5.6 % [facility] Interpretation and review of laboratory results Normal [facility] Normal: 4.2% - 5.6% Increased risk for diabetes: 5.7% - 6.4% Diabetes: >= 6.5% Pediatrics: No established reference range Estimated average glucose: 74-114 mg/dL [facility] Lipid Panelon 11-02-2019 Cholesterol [Mass/Vol] 159 mg/dL 100 - 199 mg/dL [facility] Comment on above: National Cholesterol Education Program Guidelines: Cholesterol Desirable: <200 mg/dL Borderline High: 200-239 mg/dL High: greater than or equal to 240 mg/dL Cholesterol in HDL [Mass/Vol] 46 mg/dL 40 - 59 [facility] Comment on above: National Cholesterol Education Program Guidelines: HDL Cholesterol Low: <40 mg/dL Near Optimal: 40-59 mg/dL High: greater than or equal to 60 mg/dL Cholesterol in LDL [Mass/Vol] 102 mg/dL 10 - 130 mg/dL [facility] Comment on above: National Cholesterol Education Program Guidelines: LDL Cholesterol Optimal: <100 mg/dL Near Optimal/above Optimal: 100-129 mg/dL Borderline High: 130-159 mg/dL High: 160-189 mg/dL Very High: greater than or equal to 190 mg/dL Cholesterol non HDL [Mass/Vol] 113 mg/dL [facility] Comment on above: National Cholesterol Education Program Guidelines: NON HDL Cholesterol Desirable: <130 mg/dL Borderline High: 130-159 mg/dL High: 160-189 mg/dL Very High: > or = 190 mg/dL Cholesterol.total/Cho lesterol in HDL [Mass ratio] 3.5 {ratio} ratio [facility] Comment on above: Males Cholesterol/HD L Ratio: Average risk: 5.0 1/2 average risk: 3.4 2 x average risk: 9.6 Triglyceride [Mass/Vol] 56 mg/dL 30 - 150 mg/dL [facility] Comment on above: National Cholesterol Education Program Guidelines: Triglyceride Normal: <150 mg/dL Borderline High: 150-199 mg/dL High: 200-499 mg/dL Very High: greater than or equal to 500 mg/dL Metabolic Panelon 11-02-2019 Glucose [Mass/Vol] 90 mg/dL 65 - 99 mg/dL [facility] NT Pro BNPon 11-02-2019 Interpretation and review of laboratory results Normal [facility] Natriuretic peptide.B prohormone N-Terminal [Mass/Vol] <50 0 - 300 pg/mL [facility] Pride Study Cut-offs Rule In: < /= 50 Years >450 pg/mL 51 Years - 75 Years >900 pg/mL 76 Years - 99 Years >1800 pg/mL Rule Out: All patients <300 pg/mL [facility] Otheron 11-02-2019 Extra Tube Hold for add-ons. [facility] Comment on above: Auto resulted. Interpretation and review of laboratory results Normal [facility] TROPONINon 11-02-2019 Troponin T.cardiac [Mass/Vol] 8 ng/L <=22 [facility] Troponin T.cardiac [Mass/Vol] 0 ng/L < = -/+ 7 change [facility] Troponin T.cardiac [Mass/Vol] No biomarker evidence of cardiac injury. [facility] Troponin T.cardiac [Mass/Vol] 8 ng/L <=22 [facility] Troponin T.cardiac [Mass/Vol] Normal [facility] US RENAL AND BLADDERon 11-01 Unremarkable ultraso und of the kidneys and urinary bladder. [employer] Workstation ID: [id number] [facility] EXAMINATION: RETROPERITONEAL ULTRASOUND OF THE [...] void residual. Bilateral ureteral jets are present. [facility] Interface, Rad In Fu ji [...] ultrasound of the kidneys and urinary bladder. [employer] Workstation ID: [id number] [facility] XR Chest 1 Viewon 11-02-2019 No acute process. Workstation ID: [id number] [facility] EXAMINATION: ONE XRA Y VIEW [...] The osseous structures are without acute process. [facility] Interface, Rad In Fu ji [...] process. IMPRESSION: No acute process. Workstation ID: [id number] [facility] US TESTICLE WITH COLOR FLOWo n 10-21-2019 No evidence of testi cular torsion or mass. Bilateral epididymal head cysts more pronounced on the right than the left. The cystic changes in the epididymides have shown progression from 10 years earlier. Small simple bilateral hydroceles. [facility]/kls Workstation ID: [id number] [facility] EXAMINATION: ULTRASO UND OF THE [...] 3.5 cm x 2.7 cm in dimension. [facility], Rad In Fu ji Speechq - [...] 10 years earlier. Small simple bilateral hydroceles. [employer] Workstation ID: [id number] [facility] BMPon 08-11-2019 Anion gap [Moles/Vol] 14 mmol/L 10 - 2 0 mmol/L [facility] Calcium [Mass/Vol] 8.6 mg/dL 8.4 - 10. 2 mg/dL [facility] Chloride [Moles/Vol] 106 mmol/L 98 - 10 8 mmol/L [facility] Creatinine [Mass/Vol] 0.85 mg/dL 0.50 - 1.30 [facility] GFR/1.73 sq M predicted among non-blacks MDRD (S/P/Bld) [Vol rate/Area] The eGFR should be used for monitoring renal function only and not for medication dosing. [facility] GFR/1.73 sq M.predicted CKD-EPI (S/P/Bld) [Vol rate/Area] 95 >=60 mL/min/1.73 m2 [facility] Glucose [Mass/Vol] 101 mg/dL High 65 - 99 mg/dL [facility] HCO3 [Moles/Vol] 26 mmol/L 21 - 32 mmol/L [facility] Interpretation and review of laboratory results Abnormal [facility] Potassium [Moles/Vol] 4.0 mmol/L 3.5 - 5.1 mmol/L [facility] Sodium [Moles/Vol] 142 mmol/L 135 - 145 mmol/L [facility] Urea nitrogen [Mass/Vol] 15 mg/dL 8 - 25 mg/dL [facility] Urea nitrogen/Creatinine [Mass ratio] 17.6 mg/mg [facility] CBC WITH AUTO DIFFERENTIALon 08-11-2019 Basophils (Bld) [#/Vol] 0.07 10*3/uL [facility] Basophils/100 WBC (Bld) 1.0 % [facility] Eosinophils (Bld) [#/Vol] 1.12 10*3/uL High [facility] Eosinophils/100 WBC (Bld) 16.3 % [facility] Erythrocyte distribution width (RBC) [Entitic vol] 13.2 % 11.6 - 14.8 % [facility] Hematocrit (Bld) [Volume fraction] 41.9 % 41 - 53 % [facility] Hemoglobin (Bld) [Mass/Vol] 14.0 g/dL 13.5 - 17.5 g/dL [facility] Immature granulocytes (Bld) [#/Vol] 0.01 10*3/uL [facility] Immature granulocytes/100 WBC (Bld) 0.10 % [facility] Comment on above: The IG parameter is the percentage of metamyelocytes, myelocytes, and promyelocytes. Interpretation and review of laboratory results Abnormal [facility] Lymphocytes (Bld) [#/Vol] 0.98 10*3/uL [facility] Lymphocytes/100 WBC (Bld) 14.2 % [facility] MCH (RBC) [Entitic mass] 32.3 pg 26 - 34 pg [facility] MCHC (RBC) [Mass/Vol] 33.4 g/dL 31 - 37 g/dL [facility] MCV (RBC) [Entitic vol] 96.8 fL 80 - 100 fL [facility] Monocytes (Bld) [#/Vol] 0.80 10*3/uL [facility] Monocytes/100 WBC (Bld) 11.6 % [facility] Neutrophils (Bld) [#/Vol] 3.91 10*3/uL [facility] Neutrophils/100 WBC (Bld) 56.8 % [facility] Nucleated RBC (Bld) [#/Vol] 0.00 10*3/uL [facility] Nucleated RBC/100 WBC (Bld) [Ratio] 0.0 % [facility] Platelet mean volume (Bld) [Entitic vol] 9.3 fL 9 - 15.5 fL [facility] Platelets (Bld) [#/Vol] 203 10*3/uL [facility] RBC (Bld) [#/Vol] 4.33 10*6/uL [facility] WBC (Bld) [#/Vol] 6.89 10*3/uL [facility] ECG 12-LEADon 08-11-2019 Atrial Rate 86 BPM [facility] P [place] 77 degrees [facility] P-R Interval 156 ms [facility] Q-T Interval 350 ms [facility] QRS Duration 96 ms [facility] QTC Calculation (Bezet) 418 ms [facility] R [place] 81 degrees [facility] T [place] 74 degrees [facility] Ventricular Rate 86 BPM [facility] Normal sinus rhythm Normal ECG When compared with ECG of 09-JAN-2017 20:09, No significant change was found Confirmed by Physician, ED ([id number]), non linear editor CARMEN FLEMING ([id number]) on 08/11/2019 12:22:02 PM [facility] NT Pro BNPon 08-11-2019 Interpretation and review of laboratory results Normal [facility] Natriuretic peptide.B prohormone N-Terminal [Mass/Vol] 73 pg/mL 0 - 300 pg/mL [facility] Pride Study Cut-offs Rule In: < /= 50 Years >450 pg/mL 51 Years - 75 Years >900 pg/mL 76 Years - 99 Years >1800 pg/mL Rule Out: All patients <300 pg/mL [facility] TROPONINon 08-11-2019 Troponin T.cardiac [Mass/Vol] ug/L <=22 ng/L [facility] Troponin T.cardiac [Mass/Vol] Normal [facility] XR CHEST AP/PA AND LATon [...] acute cardiopulmonary disease identified. Workstation ID: [id number] [facility] No acute cardiopulmo nary disease identified. Workstation ID: [id number] [facility] EXAMINATION: TWO XRA Y VIEWS OF THE CHEST 08/11/2019 12:20 pm COMPARISON: 08/04/2019 HISTORY: ORDERING SYSTEM PROVIDED HISTORY: copd cough; TECHNOLOGIST PROVIDED HISTORY: Illness/Other Acuity: Acute Reason for Exam: copd cough Type of Encounter: Subsequent/Follow-up Additional signs and symptoms: copd cough FINDINGS: The lungs and pleural sinuses are clear. The cardiomediastinal silhouette appears within normal limits. [facility] XR CHEST AP/PA AND LATon Changes of underlyin g COPD. No significant change in appearance of the chest. Workstation ID: [id number] [facility] EXAMINATION: TWO XRA Y VIEWS [...] the chest is similar to previous exam. [facility] Interface, Rad In Juliocesar souza [...] appearance of the chest. Workstation ID: [id number] [facility] CT Dissection With Pelvison 01-10-2018 CT Dissection With Pelvis 1. No aortic dissection or aneurysm identified. No significant stenosis or occlusion. No acute findings identified within the chest, abdomen and pelvis. 2. Moderate pulmonary emphysema Workstation ID: [id number] Invalid Interpretation Code [facility] CT Dissection With Pelvis Interface, Rad In [facility] - 01/10/2018 12:07 AM EDT EXAMINATION: CTA [...] emphysema Workstation ID: [id number] Invalid Interpretation Code [facility] CT Dissection With Pelvis EXAMINATION: CTA DISSECTION [...] findings within the pelvis. Invalid Interpretation Code [facility] EKGon 01-10-2018 EKG Ordered by an unspec ified provider. Invalid Interpretation Code [facility] Repeat EKGon 01-10-2018 Repeat EKG Elijah Reis DO 01/10/2018 3:07 AM Repeat EKG Date/Time: 01/10/2018 3:07 AM Performed by: ELIJAH REIS Authorized by: ELIJAH REIS Interpreted by ED attending physician Rhythm: sinus rhythm BPM: 81 Conduction: conduction normal normal ID interval normal QT interval Other findings: [facility] Comments: No acute ST segment elevation Invalid Interpretation Code [facility] Troponinon 01-10-2018 Interpretation and review of laboratory results Normal Invalid Interpretation Code [facility] Troponin T.cardiac mass conc ug/L Invalid Interpretation Code <0.040 ng/mL [facility] XR Chest 1 Viewon 01-10-2018 XR [...] contours. No acute fracture. Invalid Interpretation Code [facility] XR Chest 1 View No acute cardiopulmo nary process. Workstation ID: [id number] Invalid Interpretation Code [facility] XR Chest 1 View Interface, Rad In [...] ID: [id number] Invalid Interpretation Code [facility] BMPon 01-09-2018 Anion gap 3 molar [...] RT LAB Comment on above: Reference Ranges: [facility] Non-smokers:<1.5% Smokers:1.5-5.0% Heavy Smokers:5.0-9.0% CO2 ppres (BldV) 45.9 mm Hg Invalid Interpretation Code 41.0 - 51.0 [facility] LAB Glucose mass conc 107 mg/dL High 65 - 99 mg/dL [facility] LAB HCO3 molar conc (Bld) 26.0 mmol/L Invalid Interpretation Code 24 - 28 mmol/L [facility] LAB Hematocrit Volume Fraction (BldA) 38.4 % Low 41 - 53 % [facility] Hemoglobin mass conc (Bld) 12.5 g/dL Low 13.5 - 18 g/dL [facility] LAB Interpretation and review of laboratory results Abnormal Invalid Interpretation Code [facility] Lactate molar conc 1.3 mmol/L Invalid Interpretation Code 0.6 - 2 mmol/L [facility] Methemoglobin/Hemoglo bin.total mass fraction (BldA) 0.6 % Invalid Interpretation Code 0 - 2 % [facility] Oxygen ppres (BldV) 48 mm Hg High 25 - 40 [facility] R T LAB Oxygen saturation in Venous blood 83.2 % Invalid Interpretation Code [facility] Oxyhemoglobin/Hemoglo bin.total mass fraction (BldA) 79.5 % Low 94 - 98 % [facility] pH (BldV) 7.37 1 Invalid Interpretation Code 7.32 - 7.42 [facility] Potassium molar conc 3.7 mmol/L Invalid Interpretation Code 3.5 - 5.1 mmol/L [facility] Sodium molar conc 139 mmol/L Invalid Interpretation Code 135 - 145 mmol/L [facility] CBC Auto Differentialon 08-0 -2017 Basophils Auto #/vol (Bld) 0.06 K/mcL Invalid Interpretation Code 0.00 - 0.30 [facility] Basophils/100 WBC Auto (Bld) 1.2 % Invalid Interpretation Code [facility] Eosinophils Auto #/vol (Bld) 0.76 K/mcL High 0.00 - 0.50 [facility] Eosinophils/100 WBC Auto (Bld) 15.2 % Invalid Interpretation Code [facility] Erythrocyte distribution width Auto Entitic volume (RBC) 13.8 % Invalid Interpretation Code 11.6 - 14.8 % [facility] Hematocrit Auto Volume Fraction (Bld) 36.9 % Low 41 - 53 % [facility] Hemoglobin mass conc (Bld) 12.3 g/dL Low 13.5 - 17.5 g/dL [facility] Immature granulocytes #/vol (Bld) 0.01 K/mcL Invalid Interpretation Code 0.00 - 0.30 [facility] Immature granulocytes/100 WBC (Bld) 0.20 % Invalid Interpretation Code [facility] Comment on above: The IG parameter is the percentage of metamyelocytes, myelocytes, and promyelocytes. Interpretation and review of laboratory results Abnormal Invalid Interpretation Code [facility] Lymphocytes Auto #/vol (Bld) 1.69 K/mcL Invalid Interpretation Code 0.90 - 4.00 [facility] Lymphocytes/100 WBC Auto (Bld) 33.9 % Invalid Interpretation Code [facility] MCH Auto Entitic mass (RBC) 32.9 pg Invalid Interpretation Code 26 - 34 pg [facility] MCHC Auto mass conc (RBC) 33.3 g/dL Invalid Interpretation Code 31 - 37 g/dL [facility] MCV Auto Entitic volume (RBC) 98.7 fL Invalid Interpretation Code 80 - 100 fL [facility] Monocytes Auto #/vol (Bld) 0.78 K/mcL Invalid Interpretation Code 0.30 - 0.90 [facility] Monocytes/100 WBC Auto (Bld) 15.6 % Invalid Interpretation Code [facility] Neutrophils Auto #/vol (Bld) 1.69 K/mcL Low 1.70 - 7.00 [facility] Neutrophils/100 WBC Auto (Bld) 33.9 % Invalid Interpretation Code [facility] Nucleated RBC #/vol (Bld) 0.00 K/mcL Invalid Interpretation Code 0.00 - 0.00 [facility] Nucleated RBC/100 WBC Ratio (Bld) 0.0 % Invalid Interpretation Code [facility] Platelet mean volume Auto Entitic volume (Bld) 9.7 fL Invalid Interpretation Code 9 - 15.5 fL [facility] Platelets Auto #/vol (Bld) 200 K/mcL Invalid Interpretation Code 150 - 400 [facility] RBC Auto #/vol (Bld) 3.74 M/mcL Low 4.50 - 5.90 [facility] WBC Auto #/vol (Bld) 4.99 K/mcL Invalid Interpretation Code 4.50 - 11.00 [facility] CBC w/ Diffon 01-09-2018 CBC w/ Diff The following orders were created for panel order CBC w/ Diff. Procedure Abnormality Status --------- ------ CBC Auto Differential[[id number]] Abnormal Final result Please view results for these tests on the individual orders. Invalid Interpretation Code [facility] ECG 12 Leadon 01-09-2018 ECG 12 Lead Elijah Reis DO 01/09/2018 7:18 PM ECG 12 Lead Date/Time: 01/09/2018 7:17 PM Performed by: ELIJAH REIS Authorized by: ELIJAH REIS Interpreted by ED attending physician Rhythm: sinus rhythm BPM: 76 Conduction: conduction normal normal ID interval normal QT interval Clinical impression: normal ECG Comments: No acute ST segment elevation Invalid Interpretation Code [facility] Lavender Topon 01-09-2018 Extra Tube Hold for add-ons. Invalid Interpretation Code [facility] Comment on above: Auto resulted. NT Pro BNPon 01-09-2018 Interpretation and review of laboratory results Normal Invalid Interpretation Code [facility] Natriuretic peptide.B prohormone N-Terminal mass conc <50 Invalid Interpretation Code 0 - 300 pg/mL [facility] NT Pro BNP Pride Study Cut-offs Rule In: < /= 50 Years >450 pg/mL 51 Years- 75 Years >900 pg/mL 76 Years - 99 Years >1800 pg/mL Rule Out: All patients <300 pg/mL Invalid Interpretation Code [facility] Sciota Drawon 01-09-2018 Sciota Draw The following orders were created for panel order Sciota Draw. Procedure Abnormality Status --------- ------ Lavender Top[[id number]] Final result Mint Green Top[[id number]] Final result Gold Top[[id number]] Final result Light Blue Top[[id number]] Final result Munoz Top[[id number]] Final result Please view results for these tests on the individual orders. Invalid Interpretation Code [facility] Troponinon 01-09-2018 Troponin T.cardiac mass conc ug/L Invalid Interpretation Code <0.040 ng/mL [facility] Urinalysison 01-09-2018 Bacteria Auto Ql (U) [...] (U) Negative Invalid Interpretation Code Negative mg/dL [facility] Leukocyte esterase Automated test strip Ql (U) Negative Invalid Interpretation Code Negative [facility] Mucus Auto #/area (Urine sed) Rare Invalid Interpretation Code None Seen, Rare /lpf [facility] Nitrite Automated test strip Ql (U) Negative Invalid Interpretation Code Negative [facility] pH Test strip (U) 6.0 [pH] Invalid Interpretation Code 5.0 - 7.0 [facility] Protein mass conc (U) Negative Invalid Interpretation Code Negative mg/dL [facility] RBC Auto #/area (Urine sed) <1 Invalid Interpretation Code 0 - 3 /hpf [facility] Specific gravity Automated test strip Relative Density (U) 1.016 1 Invalid Interpretation Code 1.005 - 1.025 [facility] Urobilinogen Test strip Qn (U) >=4.0 Abnormal <2.0 mg/dL [facility] WBC Auto #/area (Urine sed) <1 Invalid Interpretation Code 0 - 5 /hpf [facility] Urinalysis Microscopic examinat ion is performed on all urinalysis samples and only positive findings are reported. The test for blood on the chemical analytic portion of urinalysis may also be positive due to hemoglobinuria and myoglobinuria and if red blood cells are present they are quantified by microscopic examination. Invalid Interpretation Code [facility] EKGon 12-15-2017 Protein Ordered by an unspec ified provider. Invalid Interpretation Code [facility] Basic Metabolic Panelon Anion gap 16 mmol/L Invalid Interpretation Code 10 - 20 mmol/L [facility] Bicarbonate molar conc (S) 23 mmol/L Invalid Interpretation Code 21 - 32 mmol/L [facility] BUN/Creatinine Ratio 20.3 mg/mg High 10.0 - 20.0 [facility] Calcium 8.3 mg/dL Low 8.4 - 10.2 mg/dL [facility] Chloride 102 mmol/L Invalid Interpretation Code 98 - 108 mmol/L [facility] Creatinine 0.69 mg/dL Invalid Interpretation Code 0.5 - 1.3 mg/dL [facility] eGFR (non-black) The eGFR should be u sed for monitoring renal function only and not for medication dosing. Invalid Interpretation Code [facility] GFR/1.73 sq M.predicted CKD-EPI vol rate/area 105 mL/min/1.73 m2 Invalid Interpretation Code >=60 [facility] Glucose mass conc 149 mg/dL High 65 - 99 mg/dL [facility] Potassium molar conc 4.3 mmol/L Invalid Interpretation Code 3.5 - 5.1 mmol/L [facility] Sodium 137 mmol/L Invalid Interpretation Code 135 - 145 mmol/L [facility] Urea nitrogen 14 mg/dL Invalid Interpretation Code 8 - 25 mg/dL [facility] CBCon 12-14-2017 Erythrocyte distribution width Auto Entitic volume (RBC) 13.2 % Invalid Interpretation Code 11.6 - 14.8 % [facility] Erythrocytes (RBC) 4.10 M/mcL Low 4.50 - 5.90 [facility] L AB Hematocrit (HCT) 39.6 % Low 41 - 53 % [facility] Hemoglobin mass conc (Bld) 13.4 g/dL Low 13.5 - 17.5 g/dL [facility] Interpretation and review of laboratory results Abnormal Invalid Interpretation Code [facility] MCH 32.7 pg Invalid Interpretation Code 26 - 34 pg [facility] MCHC mass conc (RBC) 33.8 g/dL Invalid Interpretation Code 31 - 37 g/dL [facility] MCV 96.6 fL Invalid Interpretation Code 80 - 100 fL [facility] Nucleated erythrocytes 0.00 K/mcL Invalid Interpretation Code 0.00 - 0.00 [facility] Nucleated erythrocytes/100 erythrocytes 0.0 % Invalid Interpretation Code [facility] Platelet mean volume (PMV) 9.6 fL Invalid Interpretation Code 9 - 15.5 fL [facility] Platelets 227 K/mcL Invalid Interpretation Code 150 - 400 [facility] WBC (Leukocytes) 3.88 K/mcL Low 4.50 - 11.00 [facility] B CCTA Heart (Load Blocker malik brewster)on 12-14-2017 CALACX 0.00 1 Invalid Interpretation Code [employer] [place] [facility] CALALAD 0.00 1 Invalid Interpretation Code [employer] [facility] [place] [facility] CALALM 0.00 1 Invalid Interpretation Code [employer] [facility] [place] [facility] CALARCA 0.00 1 Invalid Interpretation Code [employer] [facility] [place] [facility] CALATOT 0.00 1 Invalid Interpretation Code [employer] [facility] [place] [facility] CCTA Heart ([employer] Bl[employer] read) 1. Total Agatston Score of 0 2. Left Main Coronary Artery is free of atherosclerotic disease. 3. Left Anterior Descending Artery is free of atherosclerotic disease. 4. Circumflex Artery is free of atherosclerotic disease. 5. Right Coronary Artery is free of atherosclerotic disease. CAD-RADS 0 Invalid Interpretation Code [employer] [facility] [place] [facility] CT CCTA Heart With And Witho [...] demonstrate no acute abnormality. Invalid Interpretation Code [facility] CT CCTA Heart With And Without Contrast Interface, Rad In [facility] Speechq - 12/14/2017 11:39 AM EDT EXAMINATION: [...] be made for additional information. Moderate emphysema. [employer] Workstation ID: [id number] Invalid Interpretation Code [employer] [facility] [place] [facility] CT CCTA Heart With And Without Contrast Redemonstration of ascending thoracic aortic aneurysm, better delineated on CTA chest 12/13/2017. Reference to that study can be made for additional information. Moderate emphysema. [employer] Workstation ID: [id number] Invalid Interpretation Code [employer] [facility] [place] [facility] MR Cervical Spine Without Co ntraston 12-14-2017 MR Cervical Spine Without Contrast Interface, Rad In [employer] [facility] - 12/14/2017 3:25 PM EDT EXAMINATION: MRI [...] overgrowth. There is mild spinal canal stenosis. Oknmijjw-da-ryqyoe bilateral neural foraminal narrowing is present. C7-T1: [...] Multilevel neural foraminal narrowing as described above. [facility]/[employer] Workstation ID: [id number] Invalid Interpretation Code [employer] [facility] [place] [facility] MR Cervical Spine Without Contrast EXAMINATION: [...] Chronic obstructive pulmonary disease, unspecified COPD type ([facility]) R07.9 Chest pain, unspecified type [...] overgrowth. There is mild spinal canal stenosis. Bavpmwbd-yu-otvuzc bilateral neural foraminal narrowing is present. C7-T1: There is no disc bulge or protrusion present. There is no significant spinal canal stenosis or neural foraminal narrowing present. Invalid Interpretation Code [facility] MR Cervical Spine Without Contrast 1. Moderate [...] Multilevel neural foraminal narrowing as described above. [employer] Workstation ID: [id number] Invalid Interpretation Code [employer] [facility] [place] [facility] MR Lumbar Spine Without Cont [facility] 12-14-2017 MR Lumbar Spine Without Contrast Interface, Rad In [employer] [facility] - 12/15/2017 7:32 AM EDT EXAMINATION: MRI [...] Chronic obstructive pulmonary disease, unspecified COPD type ([facility]) R07.9 Chest pain, unspecified type R20.2 Paresthesia of right arm I71.2 Thoracic aortic aneurysm without rupture ([facility]) FINDINGS: BONES/ALIGNMENT: There is normal [...] arthropathy and thickening of the ligamentum flavum. [employer] Workstation ID: [id number] Invalid Interpretation Code [employer] [facility] [place] [facility] MR Lumbar Spine Without Contrast 1. Focal 5 mm right paracentral disc protrusion at L5-S1 posteriorly displacing the right S1 nerve roots within the right lateral recess. 2. Mild spinal canal stenosis and moderate left neural foraminal narrowing at L4-5 secondary to a disc bulge, facet arthropathy and thickening of the ligamentum flavum. [employer] Workstation ID: [id number] Invalid Interpretation Code [employer] [facility] [place] [facility] MR Lumbar Spine Without Contrast EXAMINATION: [...] Chronic obstructive pulmonary disease, unspecified COPD type ([facility]) R07.9 Chest pain, unspecified type R20.2 Paresthesia of right arm I71.2 Thoracic aortic aneurysm without rupture ([facility]) FINDINGS: BONES/ALIGNMENT: There is normal [...] facet arthropathy is present. Invalid Interpretation Code [employer] [facility] [place] [facility] MR Thoracic Spine Without Co ntraston 12-14-2017 Protein Focal 1 mm right paracentral disc protrusions at T6-7 and T7-8 without significant spinal canal stenosis or neural foraminal narrowing present within the thoracic spine. C/ Workstation ID: [id number] Invalid Interpretation Code [employer] [facility] [place] [facility] MR Thoracic Spine Without Contrast Interface, Rad In [employer] - 12/14/2017 4:01 PM EDT EXAMINATION: [...] Chronic obstructive pulmonary disease, unspecified COPD type ([facility]) R07.9 Chest pain, unspecified type R20.2 Paresthesia of right arm I71.2 Thoracic aortic aneurysm without rupture ([facility]) FINDINGS: BONES/ALIGNMENT: There is normal [...] foraminal narrowing present within the thoracic spine. [facility]/ Workstation ID: [id number] Invalid Interpretation Code [employer] [facility] [place] [facility] MR Thoracic Spine Without Contrast EXAMINATION: [...] Chronic obstructive pulmonary disease, unspecified COPD type ([facility]) R07.9 Chest pain, unspecified type R20.2 Paresthesia of right arm I71.2 Thoracic aortic aneurysm without rupture ([facility]) FINDINGS: BONES/ALIGNMENT: There is normal [...] or neural foraminal narrowing. Invalid Interpretation Code [employer] [facility] [place] [facility] Troponinon 12-14-2017 Interpretation and review of laboratory results Normal Invalid Interpretation Code [facility] Troponin T.cardiac mass conc ug/L Invalid Interpretation Code <0.040 ng/mL [facility] Interpretation and review of laboratory results Normal Invalid Interpretation Code [facility] Troponin T.cardiac mass conc ug/L Invalid Interpretation Code <0.040 ng/mL [facility] Interpretation and review of laboratory results Normal Invalid Interpretation Code [facility] Troponin T.cardiac mass conc ug/L Invalid Interpretation Code <0.040 ng/mL [facility] Urinalysison 12-14-2017 Bacteria Auto Ql (U) None Seen Invalid Interpretation Code None Seen /hpf [facility] Bilirubin Ql (U) Negative Invalid Interpretation [...] Ql (U) Negative Invalid Interpretation Code Negative [facility] RBC Auto #/area (Urine sed) <1 Invalid Interpretation Code 0 - 3 /hpf [facility] Specific gravity Automated test strip Relative Density (U) >1.050 High 1.005 - 1.025 [facility] Urine, pH 6.0 [pH] Invalid Interpretation Code 5.0 - 7.0 [facility] Urine, protein Negative Invalid Interpretation Code Negative mg/dL [facility] Urine, urobilinogen >=4.0 Abnormal <2.0 mg/dL [facility] L AB WBC Auto #/area (Urine sed) <1 Invalid Interpretation Code 0 - 5 /hpf [facility] Yeast.budding Computer assisted #/area (U) Rare Abnormal None Seen /hpf [facility] Urinalysis Microscopic examinat ion is performed on all urinalysis samples and only positive findings are reported. The test for blood on the chemical analytic portion of urinalysis may also be positive due to hemoglobinuria and myoglobinuria and if red blood cells are present they are quantified by microscopic examination. Invalid Interpretation Code [facility] Urine Drug Screenon 12-15-19 18 Amphetamine [...] lab within 2 weeks. Invalid Interpretation Code [facility] Alcohol, [facility] 8 Ethanol mg/dL Invalid Interpretation Code <10.0 mg/dL [facility] Comment on above: Alcohol cutoff: <10. 00 mg/dL = None Detected Interpretation and review of laboratory results Normal Invalid Interpretation Code [facility] 12-13-2017 Anion gap 16 mmol/L Invalid Interpretation Code 10 - 20 mmol/L [facility] Bicarbonate molar conc (S) 25 mmol/L Invalid Interpretation Code 21 - 32 mmol/L [facility] BUN/Creatinine Ratio 20.5 mg/mg High 10.0 - 20.0 [facility] Calcium 8.6 mg/dL Invalid Interpretation Code 8.4 - 10.2 mg/dL [facility] Chloride 104 mmol/L Invalid Interpretation Code 98 - 108 mmol/L [facility] Creatinine 0.88 mg/dL Invalid Interpretation Code 0.5 - 1.3 mg/dL [facility] eGFR (non-black) The eGFR should be u sed for monitoring renal function only and not for medication dosing. Invalid Interpretation Code [facility] GFR/1.73 sq M.predicted CKD-EPI vol rate/area 95 mL/min/1.73 m2 Invalid Interpretation Code >=60 [facility] Glucose mass conc 114 mg/dL High 65 - 99 mg/dL [facility] Interpretation and review of laboratory results Abnormal Invalid Interpretation Code [facility] Potassium molar conc 3.4 mmol/L Low 3.5 - 5 .1 mmol/L [facility] Sodium 142 mmol/L Invalid Interpretation Code 135 - 145 mmol/L [facility] Urea nitrogen 18 mg/dL Invalid Interpretation Code 8 - 25 mg/dL [facility] CBC Auto Differentialon Basophils Auto #/vol (Bld) 0.10 K/mcL Invalid Interpretation Code 0.00 - 0.30 [facility] Basophils/100 WBC Auto (Bld) 1.6 % Invalid Interpretation Code [facility] Eosinophils 0.46 K/mcL Invalid Interpretation Code 0.00 - 0.50 [facility] Eosinophils/100 leukocytes 7.5 % Invalid Interpretation Code [facility] Erythrocyte distribution width Auto Entitic volume (RBC) 13.1 % Invalid Interpretation Code 11.6 - 14.8 % [facility] Erythrocytes (RBC) 4.46 M/mcL Low 4.50 - 5.90 [facility] L AB Hematocrit (HCT) 43.1 % Invalid Interpretation Code 41 - 53 % [facility] Hemoglobin mass conc (Bld) 14.6 g/dL Invalid Interpretation Code 13.5 - 17.5 g/dL [facility] Immature granulocytes #/vol (Bld) 0.02 K/mcL Invalid Interpretation Code 0.00 - 0.30 [facility] Immature granulocytes/100 WBC (Bld) 0.30 % Invalid Interpretation Code [facility] Comment on above: The IG parameter is the percentage of metamyelocytes, myelocytes, and promyelocytes. Lymphocytes 1.83 K/mcL Invalid Interpretation Code 0.90 - 4.00 [facility] Lymphocytes/100 leukocytes 29.9 % Invalid Interpretation Code [facility] MCH 32.7 pg Invalid Interpretation Code 26 - 34 pg [facility] MCHC mass conc (RBC) 33.9 g/dL Invalid Interpretation Code 31 - 37 g/dL [facility] MCV 96.6 fL Invalid Interpretation Code 80 - 100 fL [facility] Monocytes 0.64 K/mcL Invalid Interpretation Code 0.30 - 0.90 [facility] Monocytes/100 leukocytes 10.5 % Invalid Interpretation Code [facility] Neutrophils 3.07 K/mcL Invalid Interpretation Code 1.70 - 7.00 [facility] Neutrophils/100 WBC Auto (Bld) 50.2 % Invalid Interpretation Code [facility] Nucleated erythrocytes 0.00 K/mcL Invalid Interpretation Code 0.00 - 0.00 [facility] Nucleated erythrocytes/100 erythrocytes 0.0 % Invalid Interpretation Code [facility] Platelet mean volume (PMV) 9.4 fL [...] Procedure Abnormality Status --------- ------ CBC Auto Differential[[id number]] Abnormal Final result Please view results for these tests on the individual orders. Invalid Interpretation Code [facility] CT Head Or Brain Without [...] skull or soft tissues. Invalid Interpretation Code [employer] [facility] [place] [facility] CT Head Or Brain Without Contrast No acute intracranial abnormality. No significant change from the MRI. Workstation ID: [id number] Invalid Interpretation Code [employer] [facility] CT Head Or Brain Without Contrast Interface, Rad In [employer] [facility] - 12/13/2017 7:25 PM EDT EXAMINATION: CT [...] MRI. Workstation ID: [id number] Invalid Interpretation Code [employer] [facility] [place] [facility] CT Pulmonary Arterieson CT Pulmonary Arteries No acute pulmonary artery embolism. Emphysema. Ascending aortic aneurysm 4.1 cm. [facility] Workstation ID: [id number] Invalid Interpretation Code [facility] CT Pulmonary Arteries Interface, Rad In [facility] - 12/13/2017 9:57 PM EDT EXAMINATION: CTA [...] embolism. Emphysema. Ascending aortic aneurysm 4.1 cm. [employer] Workstation ID: [id number] Invalid Interpretation Code [employer] [facility] [place] [facility] CT Pulmonary Arteries EXAMINATION: CTA O [...] tissue abnormality. Invalid Interpretation Code [facility] EKG 12-leadon 12-13-2017 EKG 12-lead Lashawn Capone DO 12/13/2017 10:19 PM EKG 12-lead Date/Time: 12/13/2017 10:07 PM Performed by: LASHAWN CAPONE Authorized by: LASHAWN CAPONE Interpreted by ED attending physician Comparison: compared with previous ECG Similar to previous ECG Rhythm: sinus rhythm BPM: 71 Conduction: conduction normal QRS axis: normal normal ID interval normal QRS interval QT interval (ms): 481. Clinical impression: non-specific ECG Comments: She will ST depression in inferior leads but suspect this is due to wavy baseline Invalid Interpretation Code [facility] Munoz Topon 12-13-2017 Extra Tube [...] Invalid Interpretation Code 30 - 150 mg/dL [facility] NT Pro BNPon 07-08-2018 Natriuretic peptide.B prohormone N-Terminal mass conc <50 Invalid Interpretation Code 0 - 300 pg/mL [facility] NT Pro BNP [employer] Study Cut-offs Rule In: < /= 50 Years >450 pg/mL 51 Years- 75 Years >900 pg/mL 76 Years - 99 Years >1800 pg/mL Rule Out: All patients <300 pg/mL Invalid Interpretation Code [facility] PT/INRon 12-13-2017 INR Coag RelTime (Bld) During the induction phase of oral anticoagulation, the INR may not reflect the anticoagulation status of the patient. Therapeutic ranges for INR's are: Most clinical situations: INR 2.0-3.0 Mechanical Prosthetic Valve: INR 2.5-3.5 Critical: INR >5.0 Invalid Interpretation Code [facility] INR Coag RelTime (PPP) 1.0 {INR} Invalid Interpretation Code 0.8 - 1.1 [facility] [facility] [place] [facility] Interpretation and review of laboratory results Normal Invalid Interpretation Code [facility] [place] [facility] Prothrombin time (PT) Coag time (PPP) 13.2 s Invalid Interpretation Code 11.8 - 14.3 [facility] [place] [facility] Sciota Drawon 12-13-2017 Sciota Draw The following orders were created for panel order Sciota Draw. Procedure Abnormality Status --------- ------ Gold Top[[id number]] Final result Munoz Top[[id number]] Final result Please view results for these tests on the individual orders. Invalid Interpretation Code [facility] Troponinon 12-13-2017 Troponin T.cardiac mass conc ug/L Invalid Interpretation Code <0.040 ng/mL [facility] [place] [facility] XR Chest 1 Viewon 12-13-2017 Protein Scattered prominence of the interstitium is noted in the mid to upper lung zones. This is nonspecific and may be related to portable technique. Mild venous congestion not excluded entirely. Upright two view chest may be more helpful Workstation ID: [id number] Invalid Interpretation Code [facility] XR Chest 1 View Interface, Rad [...] chest may be more helpful Workstation ID: [id number] Invalid Interpretation Code [employer] [facility] [place] [facility] XR Chest 1 View EXAMINATION: SINGLE [...] no effusion or pneumothorax. Invalid Interpretation Code [employer] [facility] [place] [facility] Basic Metabolic Panelon 08-0 Anion gap molar conc 13 mmol/L 10 - 20 mmol/L [facility] Calcium mass conc 8.6 mg/dL 8.4 - 10.2 mg/dL [facility] Chloride molar conc 107 mmol/L 98 - 108 mmol/L [facility] Creatinine mass conc 0.71 mg/dL 0.5 - 1 .3 mg/dL [facility] GFR/1.73 sq M predicted among non-blacks MDRD vol rate/area (S/P/Bld) The eGFR should be used for monitoring renal function only and not for medication dosing. [facility] GFR/1.73 sq M.predicted CKD-EPI vol rate/area (S/P/Bld) 105 mL/min/1.73 m2 >=60 [facility] Glucose mass conc 117 mg/dL High 65 - 99 mg/dL [facility] HCO3 molar conc 28 mmol/L 21 - 32 mmol/L [facility] Interpretation and review of laboratory results Abnormal [facility] Potassium molar conc 4.3 mmol/L 3.5 - 5 .1 mmol/L [facility] Sodium molar conc 144 mmol/L 135 - 145 mmol/L [facility] Urea nitrogen mass conc 17 mg/dL 8 - 25 mg/dL [facility] Urea nitrogen/Creatinine mass ratio 23.9 mg/mg High 10.0 - 20.0 [facility] CBCon 01-10-2017 Erythrocyte distribution width Entitic volume (RBC) 13.5 % 11.6 - 14.8 % [facility] Hematocrit Volume Fraction (Bld) 39.6 % Low 41 - 53 % [facility] Hemoglobin mass conc (Bld) 13.3 g/dL Low 13.5 - 17.5 g/dL [facility] MCH Entitic mass (RBC) 32.8 pg 26 - 34 pg [facility] MCHC mass conc (RBC) 33.6 g/dL 31 - 37 g/dL [facility] MCV Entitic volume (RBC) 97.5 fL 80 - 100 fL [facility] Nucleated RBC #/vol (Bld) 0.00 K/mcL 0.00 - 0.00 [facility] Nucleated RBC/100 WBC Ratio (Bld) 0.0 % [facility] Platelet mean volume Entitic volume (Bld) 9.8 fL 9 - 15.5 fL [facility] Platelets #/vol (Bld) 232 K/mcL 150 - 400 [facility] RBC #/vol (Bld) 4.06 M/mcL Low 4.50 - 5.90 [facility] WBC #/vol (Bld) 6.63 K/mcL 4.50 - 11.00 [facility] Echocardiogram complete with bubble studyon 01-10-2017 Echocardiogram complete with bubble study Transthoracic Echocardiogram Patient: KAROLINA Vazquez [facility] Rec#: [id number] (Age): 1960(56y) Height: 187.96(cm)/73(i Study Date: 01/10/2017 Weight: 61.24(kg)/135(l Room#: 8214 BSA: [id number] Type: Inpatient Loc: CIL Sex: M Reading: Karma Mcgovern DO, FAC Referring: UGO JIANG R. Nurse: Juanita Diallo RN [employer] Operator: Simba Redding RDCS, RV History: Asthma. COPD. Emphysema. Diagnosis: ICD-10-PCS Personal history of transient ischemic attack (TIA), and cerebral infarction without residual deficits (Z86.73) CVA, cerebral embolism with infarct (434.11) TIA, unspecified (435.9) CPT Code(s): ECHO COMPLETE W/ DOPPLER (21031) Study Quality The study quality is technically [...] 11:39:34 by: Karma Mcgovern, , FACC, [place], [facility] Echocardiogram complete with bubble study Interface, Rad In [facility] 01/10/2017 11:40 AM EDT Transthoracic Echocardiogram Patient: KAROLINA Vazquez [facility] Rec#: [id number] (Age): 1960(56y) Height: 187.96(cm)/73(i Study Date: 01/10/2017 Weight: 61.24(kg)/135(l Room#: 8214 BSA: [id number] Type: Inpatient Loc: CIL Sex: M Reading: Karma Mcgovern, DO, FAC Referring: UGO JIANG R. Nurse: Juanita Diallo RN [employer] Operator: Simba Redding RDCS, RV History: Asthma. COPD. Emphysema. Diagnosis: ICD-10-PCS Personal history of transient ischemic attack (TIA), and cerebral infarction without residual deficits (Z86.73) CVA, cerebral embolism with infarct (434.11) TIA, unspecified (435.9) CPT Code(s): ECHO COMPLETE W/ DOPPLER (91307) Study Quality The study quality is technically [...] 11:39:34 by: Karma Mcgovern DO, FACC, [place], [facility] MR Cow/Carotids/Brain [...] of the head was obtained with 3D bjcn-ph-dmrzyk technique. MR angiogram of the neck was [...] The central intracranial flow voids of the [place] are visualized, implying that [...] quality is degraded secondary to motion artifact. [employer] [facility] [place] [facility] MR Cow/Carotids/Brain With And Without Contrast [...] in the central intracranial arteries of the [place]. 6. Equivocal, tiny, 1-2 mm aneurysm at the proximal cavernous left internal carotid artery versus artifact or an infundibulum. Fontacto[employer]Xochit[employer] (So[employer]Shee) [employer] Workstation ID: [id number] [employer] [facility] [place] [facility] MR Cow/Carotids/Brain With And Without Contrast Interface, Rad In [facility] Speechq - 01/10/2017 2:05 PM EDT EXAMINATION: [...] of the head was obtained with 3D oneg-tb-jmkogg technique. MR angiogram of the neck was [...] The central intracranial flow voids of the [place] are visualized, implying that [...] in the central intracranial arteries of the [place]. 6. Equivocal, tiny, 1-2 mm aneurysm at the proximal cavernous left internal carotid artery versus artifact or an infundibulum. EYY/ads Workstation ID: [id number] [facility] XR MR Eyeon 01-10-2017 XR MR Eye Interface, Rad In [facility] - 01/09/2017 11:01 PM EDT EXAMINATION: XR [...] No radiopaque foreign body seen Workstation ID: [id number] [facility] XR MR Eye EXAMINATION: XR MR [...] bodies in or adjacent to the orbits. [employer] [facility] [place] [facility] XR MR Eye No radiopaque foreig n body seen Workstation ID: [id number] [facility] Alcohol, Medicalon 7 Ethanol mass conc mg/dL <10.0 mg/dL [facility] Comment on above: Alcohol cutoff: <10.00 mg/dL = None Detected Interpretation and review of laboratory results Normal [facility] CBC Auto Differentialon Basophils #/vol (Bld) 0.09 K/mcL 0.00 - 0.[address] [facility] Basophils/100 WBC (Bld) 1.6 % [facility] Eosinophils #/vol (Bld) 0.81 K/mcL High 0.00 - 0.50 [facility] Eosinophils/100 WBC (Bld) 14.0 % [facility] Erythrocyte distribution width Entitic volume (RBC) 13.5 % 11.6 - 14.8 % [facility] Hematocrit Volume Fraction (Bld) 45.4 % 41 - 53 % [facility] Hemoglobin mass conc (Bld) 15.4 g/dL 13.5 - 17.5 g/dL [facility] Immature granulocytes #/vol (Bld) 0.01 K/mcL 0.00 - 0.30 [facility] Immature granulocytes/100 WBC (Bld) 0.20 % [facility] Comment on above: The IG parameter is the percentage of metamyelocytes, myelocytes, and promyelocytes. Lymphocytes #/vol (Bld) 1.94 K/mcL 0.90 - 4.00 [facility] Lymphocytes/100 WBC (Bld) 33.6 % [facility] MCH Entitic mass (RBC) 32.9 pg 26 - 34 pg [facility] MCHC mass conc (RBC) 33.9 g/dL 31 - 37 g/dL [facility] MCV Entitic volume (RBC) 97.0 fL 80 - 100 fL [facility] Monocytes #/vol (Bld) 0.54 K/mcL 0.30 - 0.90 [facility] Monocytes/100 WBC (Bld) 9.4 % [facility] Neutrophils #/vol (Bld) 2.38 K/mcL 1.70 - 7.00 [facility] Neutrophils/100 WBC (Bld) 41.2 % [facility] Nucleated RBC #/vol (Bld) 0.00 K/mcL 0.00 - 0.00 [facility] Nucleated RBC/100 WBC Ratio (Bld) 0.0 % [facility] Platelet mean volume Entitic volume (Bld) 9.4 fL 9 - 15.5 fL [facility] Platelets #/vol (Bld) 267 K/mcL 150 - 400 [facility] RBC #/vol (Bld) 4.68 M/mcL 4.50 - 5.90 [facility] WBC #/vol (Bld) 5.77 K/mcL 4.50 - 11.00 [facility] CBC w/ Diffon 01-09-2017 CBC w/ Diff The following orders were created for panel order CBC w/ Diff. Procedure Abnormality Status --------- ------ CBC Auto Differential[[id number]] Abnormal Final result Please view results for these tests on the individual orders. [employer] Work Phone: CMPon 01-09-2017 Albumin mass conc 3.9 g/dL 3.2 - 5.2 g/dL [facility] ALP enzyme act/vol 78 U/L 40 - 150 U/L [facility] ALT enzyme act/vol 12 U/L 0 - 40 U/L [facility] Anion gap molar conc 17 mmol/L 10 - 20 mmol/L [facility] AST enzyme act/vol 14 U/L 0 - 45 U/L [facility] Bilirubin mass conc 0.4 mg/dL 0 - 1.3 mg/dL [facility] Calcium mass conc 8.9 mg/dL 8.4 - 10.2 mg/dL [facility] Chloride molar conc 104 mmol/L 98 - 108 mmol/L [facility] Creatinine mass conc 0.75 mg/dL 0.5 - 1 .3 mg/dL [facility] GFR/1.73 sq M predicted among non-blacks MDRD vol rate/area (S/P/Bld) The eGFR should be used for monitoring renal function only and not for medication dosing. [facility] GFR/1.73 sq M.predicted CKD-EPI vol rate/area (S/P/Bld) 103 mL/min/1.73 m2 >=60 [facility] Glucose mass conc 79 mg/dL 65 - 99 mg/dL [facility] HCO3 molar conc 29 mmol/L 21 - 32 mmol/L [facility] Interpretation and review of laboratory results Abnormal [facility] Potassium molar conc 4.3 mmol/L 3.5 - 5 .1 mmol/L [facility] Protein mass conc 6.7 g/dL 6 - 8 g/dL [facility] Sodium molar conc 146 mmol/L High 135 - 145 mmol/L [facility] Urea nitrogen mass conc 14 mg/dL 8 - 25 mg/dL [facility] Urea nitrogen/Creatinine mass ratio 18.7 mg/mg 10.0 - 20.0 [facility] CT Head Without Contrast (St roke)on 01-09-2017 CT Head Without Contrast (Stroke) No acute intracranial abnormality. If there is persistent clinical concern for acute ischemia, consideration of further evaluation with MRI is suggested. Critical results were called by Dr. Juan Antonio Cole to Dr. MEKHI LEA on 01/09/2017 at 20:06. Workstation ID: [id number] [employer] [facility] [place] [facility] CT Head Without Contrast (Stroke) Interface, Rad In [employer] [facility] - 01/09/2017 8:09 PM EDT EXAMINATION: CT [...] LEA on 01/09/2017 at 20:06. Workstation ID: [id number] [facility] CT Head Without Contrast (Stroke) EXAMINATION: CT [...] appear well aerated. Bony calvarium appears unremarkable. [facility] EKG 12-leadon 01-09-2017 Atrial Rate 79 BPM MUSE P [place] 77 degrees MUSE P-R Interval 164 ms MUSE Q-T Interval 376 ms MUSE QRS Duration 88 ms MUSE QTC Calculation (Bezet) 431 ms MUSE R [place] 67 degrees MUSE T [place] 76 degrees MUSE Ventricular Rate 79 BPM MUSE EKG 12-lead Poor data qualit y, interpretation may be adversely affected Normal sinus rhythm Nonspecific ST abnormality Confirmed by BRI BALDERAS MD (1958) on 01/10/2017 6:56:28 AM MUSE Hemoglobin A1con 01-09-2017 Average glucose Estimated from glycated hemoglobin mass conc (Bld) 103 mg/dL 68 - 126 mg/dL [facility] Hemoglobin A1c/Hemoglobin.total mass fraction (Bld) 5.2 % 4.2 - 6 % [facility] POC Glucoseon 01-09-2017 Glucose mass conc 94 mg/dL 65 - 99 mg/dL [place] [employer] Work Phone: Interpretation and review of laboratory results Normal [place] Work Phone: POC INRon 01-09-2017 INR Coag RelTime (Bld) 1.0 {INR} 0.8 - 1.1 [facility] Interpretation and review of laboratory results Normal [facility] Troponinon 01-09-2017 Troponin T.cardiac mass conc ug/L <0.040 ng/mL [facility] XR Chest 1 Viewon 01-09-2017 XR Chest 1 View 1. No acute cardiopulmonary disease. 2. Bilateral healing posterolateral rib fractures. [employer] Workstation ID: [id number] [facility] [place] XR Chest 1 View Interface, Rad In [employer] - 01/09/2017 8:48 PM EDT EXAMINATION: XR CHEST PA/AP ADDITIONAL CLINICAL INFORMATION: cough COMPARISON: 06/27/2014. FINDINGS: Bilateral healing posterolateral rib fractures are noted. Cardiomediastinal silhouette and pulmonary vascularity are within normal limits. The lungs and the costophrenic angles are clear. IMPRESSION: 1. No acute cardiopulmonary disease. 2. Bilateral healing posterolateral rib fractures. [employer] Workstation ID: [id number] [facility] [place] XR Chest 1 View EXAMINATION: XR CHES T PA/AP ADDITIONAL CLINICAL INFORMATION: cough COMPARISON: 06/27/2014. FINDINGS: Bilateral healing posterolateral rib fractures are noted. Cardiomediastinal silhouette and pulmonary vascularity are within normal limits. The lungs and the costophrenic angles are clear. [facility] [place] Vital Signs Date Time Vital Sign Value Performing Clinician Faci lity 04-13-2025 11:01-0500 Body mass index (BMI) [Ratio] 20.85 kg/m2 Jihan Rodriguez MD Work Phone: [facility] 04-13-2025 11:01-0500 Body weight 71.67 kg Jihan Rodriguez MD Work Phone: [facility] 04-13-2025 11:01-0500 Diastolic blood pressure 89 mm[Hg] Jihan Rodriguez MD Work Phone: [facility] 04-13-2025 11:01-0500 Heart rate 99 /min Jihan Rodriguez MD Work Phone: [facility] 04-13-2025 11:01-0500 SaO2% (BldA) [Mass fraction] 95 % Jihan Rodriguez MD Work Phone: [facility] 04-13-2025 11:01-0500 Systolic blood pressure 129 mm[Hg] Jihan Rodriguez MD Work Phone: [facility] 03-14-2025 13:57-0400 Diastolic blood pressure 85 mm[Hg] Elijah Sanchez MD Work Phone: [facility] 03-14-2025 13:57-0400 Heart rate 92 /min Elijah Sanchez MD Work Phone: [facility] 03-14-2025 13:57-0400 Respiratory rate 18 /min Elijah Sanchez MD Work Phone: [facility] 03-14-2025 13:57-0400 Systolic blood pressure 131 mm[Hg] Eljiah Sanchez MD Work Phone: [facility] 02-27-2025 13:26-0400 Body mass index (BMI) [Ratio] 22.03 kg/m2 Jihan Rodriguez MD Work Phone: [facility] 02-27-2025 13:26-0400 Body weight 75.75 kg Jihan Rodriguez MD Work Phone: [facility] 02-27-2025 13:26-0400 Diastolic blood pressure 65 mm[Hg] Jihan Rodriguez MD Work Phone: [facility] 02-27-2025 13:26-0400 Heart rate 100 /min Jihan Rodriguez MD Work Phone: [facility] 02-27-2025 13:26-0400 SaO2% (BldA) [Mass fraction] 94 % Jihan Rodriguez MD Work Phone: [facility] 02-27-2025 13:26-0400 Systolic blood pressure 104 mm[Hg] Jihan Rodriguez MD Work Phone: [facility] 02-01-2025 16:52-0400 Body temperature 98.1 [degF] Chalon Rosalva MD Work Phone: [facility] 02-01-2025 16:52-0400 Diastolic blood pressure 73 mm[Hg] Iker Blackwell MD Work Phone: [facility] 02-01-2025 16:52-0400 Heart rate 100 /min Iker Blackwell MD Work Phone: [facility] 02-01-2025 16:52-0400 Respiratory rate 22 /min Iker Blackwell MD Work Phone: [facility] 02-01-2025 16:52-0400 SaO2% (BldA) [Mass fraction] 94 % Iker Blackwell MD Work Phone: [facility] 02-01-2025 16:52-0400 Systolic blood pressure 103 mm[Hg] Iker Blackwell MD Work Phone: [facility] 02-01-2025 15:32-0400 Body height 185.42 cm Iker Blackwell MD Work Phone: [facility] 02-01-2025 15:32-0400 Body mass index (BMI) [Ratio] 22.5 kg/m2 Iker Blackwell MD Work Phone: [facility] 02-01-2025 15:32-0400 Body weight 77.4 kg Iker Blackwell MD Work Phone: [facility] 02-01-2025 15:32-0400 Inhaled oxygen flow rate 2 L/min Iker Blackwell MD Work Phone: [facility] 02-01-2025 11:28-0400 Diastolic blood pressure 88 mm[Hg] Elijah Sanchez MD Work Phone: [facility] 02-01-2025 11:28-0400 Heart rate 73 /min Elijah Sanchez MD Work Phone: [facility] 02-01-2025 11:28-0400 Systolic blood pressure 136 mm[Hg] Elijah Sanchez MD Work Phone: [facility] 11-11-2024 10:32-0400 Body mass index (BMI) [Ratio] 21.93 kg/m2 Jihan Wooten MD Work Phone: [facility] 11-11-2024 10:32-0400 Body weight 75.39 kg Jihan Wooten MD Work Phone: [facility] 11-11-2024 10:32-0400 Diastolic blood pressure 85 mm[Hg] Jihan Wooten MD Work Phone: [facility] 11-11-2024 10:32-0400 Heart rate 82 /min Jihan Wooten MD Work Phone: [facility] 11-11-2024 10:32-0400 Systolic blood pressure 143 mm[Hg] Jihan Wooten MD Work Phone: [facility] 10-28-2024 10:06-0400 Diastolic blood pressure 91 mm[Hg] Kvng Musico PA-C Work Phone: [facility] 10-28-2024 10:06-0400 Heart rate 109 /min Kvng Musico PA-C Work Phone: [facility] 10-28-2024 10:06-0400 Systolic blood pressure 135 mm[Hg] Kvng Musico PA-C Work Phone: [facility] 10-28-2024 09:47-0400 Body temperature 99.9 [degF] Kvng Musico PA-C Work Phone: [facility] 08-18-2024 11:09-0400 Body temperature 97.8 [degF] Iker Blackwell MD Work Phone: [facility] 08-18-2024 11:09-0400 Diastolic blood pressure 73 mm[Hg] Iker Blackwell MD Work Phone: [facility] 08-18-2024 11:09-0400 Heart rate 97 /min Iker Blackwell MD Work Phone: [facility] 08-18-2024 11:09-0400 Respiratory rate 20 /min Iker Blackwell MD Work Phone: [facility] 08-18-2024 11:09-0400 SaO2% (BldA) [Mass fraction] 97 % Iker Blackwell MD Work Phone: [facility] 08-18-2024 11:09-0400 Systolic blood pressure 110 mm[Hg] Iker Blackwell MD Work Phone: [facility] 08-18-2024 10:02-0400 Body height 185.42 cm Iker Blackwell MD Work Phone: [facility] 08-18-2024 10:02-0400 Body mass index (BMI) [Ratio] 19.5 kg/m2 Iker Blackwell MD Work Phone: [facility] 08-18-2024 10:02-0400 Body weight 67.13 kg Iker Blackwell MD Work Phone: [facility] 08-18-2024 10:02-0400 Inhaled oxygen flow rate 2 L/min Iker Blackwell MD Work Phone: [facility] 07-05-2024 09:19-0500 Diastolic blood pressure 86 mm[Hg] Iker Blackwell MD Work Phone: [facility] 07-05-2024 09:19-0500 Heart rate 78 /min Iker Blackwell MD Work Phone: [facility] 07-05-2024 09:19-0500 Respiratory rate 18 /min Iker Blackwell MD Work Phone: [facility] 07-05-2024 09:19-0500 Systolic blood pressure 137 mm[Hg] Iker Blackwell MD Work Phone: [facility] 07-05-2024 07:20-0500 Body height 185.42 cm Iker Blackwell MD Work Phone: [facility] 07-05-2024 07:20-0500 Body mass index (BMI) [Ratio] 21.9 kg/m2 Iker Blackwell MD Work Phone: [facility] 07-05-2024 07:20-0500 Body temperature 98.1 [degF] Iker Blackwell MD Work Phone: [facility] 07-05-2024 07:20-0500 Body weight 75.5 kg Iker Blackwell MD Work Phone: [facility] 07-05-2024 07:20-0500 Inhaled oxygen flow rate 3 L/min Iker Blackwell MD Work Phone: [facility] 07-05-2024 07:20-0500 SaO2% (BldA) [Mass fraction] 95 % Iker Blackwell MD Work Phone: [facility] 06-02-2024 19:51-0500 Diastolic blood pressure 101 mm[Hg] Iker Blackwell MD Work Phone: 8(670)588-1874[address] [place] [address] 06-02-2024 19:51-0500 Systolic blood pressure 152 mm[Hg] Iker Blackwell MD Work Phone: [facility] 06-02-2024 19:48-0500 Body temperature 97.9 [degF] Iker Blackwell MD Work Phone: [facility] 06-02-2024 19:48-0500 Heart rate 105 /min Iker Blackwell MD Work Phone: [facility] 06-02-2024 19:48-0500 Respiratory rate 17 /min Iker Blackwell MD Work Phone: [facility] 06-02-2024 19:48-0500 SaO2% (BldA) [Mass fraction] 97 % Iker Blackwell MD Work Phone: [facility] 06-02-2024 19:45-0500 Inhaled oxygen flow rate 3 L/min Iker Blackwell MD Work Phone: [facility] 06-02-2024 18:51-0500 Body mass index (BMI) [Ratio] 21.5 kg/m2 Iker Blackwell MD Work Phone: [facility] 06-02-2024 18:51-0500 Body weight 74.1 kg Iker Blackwell MD Work Phone: [facility] 05-31-2024 07:00-0500 Diastolic blood pressure 76 mm[Hg] Iker Blackwell MD Work Phone: [facility] 05-31-2024 07:00-0500 Heart rate 101 /min Iker Blackwell MD Work Phone: 0(774)715-880019 [place] [address] 05-31-2024 07:00-0500 Respiratory rate 16 /min Iker Blackwell MD Work Phone: 2(891)134-796919 [place] [address] 05-31-2024 07:00-0500 SaO2% (BldA) [Mass fraction] 98 % Iker Blackwell MD Work Phone: 3(860)595-160019 [place] [address] 05-31-2024 07:00-0500 Systolic blood pressure 128 mm[Hg] Iker Blackwell MD Work Phone: 6(840)599-412719 [place] [address] 05-31-2024 06:42-0500 Body temperature 98.4 [degF] Iker Blackwell MD Work Phone: 4(167)056-368219 [place] [address] 05-31-2024 06:00-0500 Inhaled oxygen flow rate 2.5 L/min Iker Blackwell MD Work Phone: 6(202)868-888819 [place] [address] 05-30-2024 23:18-0500 Body mass index (BMI) [Ratio] 20.7 kg/m2 Iker Blackwell MD Work Phone: [facility] 05-30-2024 23:18-0500 Body weight 71.3 kg Iker Blackwell MD Work Phone: 2(751)981-469919 [place] [address] 05-23-2024 12:02-0500 Body temperature 98.3 [degF] Iker Blackwell MD Work Phone: [facility] 05-23-2024 12:02-0500 Diastolic blood pressure 87 mm[Hg] Iker Blackwell MD Work Phone: 5(807)533-919819 [place] [address] 05-23-2024 12:02-0500 Heart rate 101 /min Iker Blackwell MD Work Phone: [facility] 05-23-2024 12:02-0500 Respiratory rate 18 /min Iker Blackwell MD Work Phone: [facility] 05-23-2024 12:02-0500 SaO2% (BldA) [Mass fraction] 93 % Iker Blackwell MD Work Phone: [facility] 05-23-2024 12:02-0500 Systolic blood pressure 152 mm[Hg] Iker Blackwell MD Work Phone: [facility] 05-23-2024 07:59-0500 Inhaled oxygen flow rate 2 L/min Iker Blackwell MD Work Phone: [facility] 05-20-2024 23:34-0500 Body mass index (BMI) [Ratio] 20.2 kg/m2 Iker Blackwell MD Work Phone: [facility] 05-20-2024 23:34-0500 Body weight 69.7 kg Iker Blackwell MD Work Phone: [facility] 05-18-2024 15:17-0500 Heart rate 109 /min Iker Blackwell MD Work Phone: [facility] 05-18-2024 15:17-0500 Respiratory rate 18 /min Iker Blackwell MD Work Phone: [facility] 05-18-2024 14:49-0500 Body weight 68.4 kg Iker Blackwell MD Work Phone: [facility] 05-18-2024 14:00-0500 Body temperature 98.1 [degF] Iker Blackwell MD Work Phone: [facility] 05-18-2024 14:00-0500 Inhaled oxygen flow rate 2 L/min Iker Blackwell MD Work Phone: [facility] 05-18-2024 14:00-0500 SaO2% (BldA) [Mass fraction] 96 % Iker Blackwell MD Work Phone: [facility] 05-18-2024 13:50-0500 Diastolic blood pressure 87 mm[Hg] Iker Blackwell MD Work Phone: [facility] 05-18-2024 13:50-0500 Systolic blood pressure 117 mm[Hg] Iker Blackwell MD Work Phone: [facility] 05-17-2024 21:26-0500 Body mass index (BMI) [Ratio] 19.8 kg/m2 Iker Blackwell MD Work Phone: [facility] 11-04-2023 13:44-0400 Body height 188 cm Teersa Gay MD, PhD Work Phone: [facility] 11-04-2023 13:44-0400 Body mass index (BMI) [Ratio] 18.54 kg/m2 Teresa Gay MD, PhD Work Phone: [facility] 11-04-2023 13:44-0400 Body weight 65.5 kg Teresa Gay MD, PhD Work Phone: [facility] 11-04-2023 13:44-0400 Diastolic blood pressure 66 mm[Hg] Teresa Gay MD, PhD Work Phone: [facility] 11-04-2023 13:44-0400 Heart rate 99 /min Teresa Gay MD, PhD Work Phone: [facility] 11-04-2023 13:44-0400 Respiratory rate 20 /min Teresa Gay MD, PhD Work Phone: [facility] 11-04-2023 13:44-0400 SaO2% (BldA) [Mass fraction] 92 % Teresa Gay MD, PhD Work Phone: [facility] 11-04-2023 13:44-0400 Systolic blood pressure 126 mm[Hg] Teresa Gay MD, PhD Work Phone: [facility] 10-31-2023 10:02-0400 Body temperature 98.4 [degF] Reji Al MD Work Phone: [facility] 10-31-2023 10:02-0400 Diastolic blood pressure 68 mm[Hg] Reji Al MD Work Phone: [facility] 10-31-2023 10:02-0400 Heart rate 94 /min Reji Al MD Work Phone: [facility] 10-31-2023 10:02-0400 Respiratory rate 18 /min Reji Al MD Work Phone: [facility] 10-31-2023 10:02-0400 SaO2% (BldA) [Mass fraction] 97 % Reji Al MD Work Phone: [phone] 10-31-2023 10:02-0400 Systolic blood pressure 118 mm[Hg] Reji Al MD Work Phone: [facility] 10-29-2023 22:28-0400 Body height 188 cm Reji Al MD Work Phone: [facility] 10-29-2023 22:28-0400 Body mass index (BMI) [Ratio] 18.09 kg/m2 Reji Al MD Work Phone: [facility] 10-29-2023 22:28-0400 Body weight 63.91 kg Reji Al MD Work Phone: [facility] 10-27-2023 14:00-0400 Respiratory rate 18 /min Flores Hess DO Work Phone: [facility] 10-26-2023 23:22-0400 Diastolic blood pressure 68 mm[Hg] Flores Hess DO Work Phone: [facility] 10-26-2023 23:22-0400 Heart rate 109 /min Christopher Buchsieb DO Work Phone: [facility] 10-26-2023 23:22-0400 SaO2% (BldA) [Mass fraction] 92 % Flores Perazasieb DO Work Phone: [facility] 10-26-2023 23:22-0400 Systolic blood pressure 109 mm[Hg] Flores Perazasieb DO Work Phone: [facility] 10-26-2023 15:54-0400 Body temperature 97.81 [degF] Flores Perazasieb DO Work Phone: [facility] 10-25-2023 18:26-0400 Body mass index (BMI) [Ratio] 21.11 kg/m2 Flores Perazasieb DO Work Phone: [facility] 10-25-2023 18:26-0400 Body weight 72.58 kg Flores Cheryeb DO Work Phone: [facility] 10-02-2023 14:32-0400 Body height 185.4 cm Ivonne Henry MD Work Phone: [facility] 10-02-2023 14:32-0400 Body mass index (BMI) [Ratio] 18.07 kg/m2 Ivonne Henry MD Work Phone: [facility] 10-02-2023 14:32-0400 Body temperature 97.7 [degF] Ivonne Henry MD Work Phone: [facility] 10-02-2023 14:32-0400 Body weight 62.14 kg Ivonne Henry MD Work Phone: [facility] 10-02-2023 14:32-0400 Diastolic blood pressure 64 mm[Hg] Ivonne Henry MD Work Phone: [facility] 10-02-2023 14:32-0400 Heart rate 91 /min Ivonne Henry MD Work Phone: [facility] 10-02-2023 14:32-0400 SaO2% (BldA) [Mass fraction] 93 % Ivonne Henry MD Work Phone: [facility] 10-02-2023 14:32-0400 Systolic blood pressure 108 mm[Hg] Ivonne Henry MD Work Phone: [facility] 08-21-2021 07:38-0400 Body temperature 98.2 [degF] [facility] Work Phone: [facility] 08-21-2021 07:38-0400 Diastolic blood pressure 82 mm[Hg] [facility] Work Phone: [facility] 08-21-2021 07:38-0400 Heart rate 93 /min [facility] Work Phone: [facility] 08-21-2021 07:38-0400 Respiratory rate 15 /min [facility] Work Phone: [facility] 08-21-2021 07:38-0400 SaO2% (BldA) [Mass fraction] 94 % [facility] Work Phone: [facility] 08-21-2021 07:38-0400 Systolic blood pressure 142 mm[Hg] [facility] Work Phone: [facility] 08-05-2021 11:53-0500 Body height 185.4 cm Elpidio Degenova DO Work Phone: [facility] 08-05-2021 11:53-0500 Body mass index (BMI) [Ratio] 19.79 kg/m2 Elpidio Degenova DO Work Phone: [facility] 08-05-2021 11:53-0500 Body weight 68.04 kg Elpidio Degenova DO Work Phone: [facility] 06-25-2021 13:33-0500 Body height 185.4 cm Janusz Myrick PA-C Work Phone: [facility] 06-25-2021 13:33-0500 Body mass index (BMI) [Ratio] 19.79 kg/m2 Janusz Myrick PA-C Work Phone: [facility] 06-25-2021 13:33-0500 Body weight 68.04 kg Janusz Myrick PA-C Work Phone: [facility] 03-15-2021 09:53-0400 Body height 185.4 cm Teresa Terry MD Work Phone: [facility] 03-15-2021 09:53-0400 Body mass index (BMI) [Ratio] 18.34 kg/m2 Teresa Terry MD Work Phone: [facility] 03-15-2021 09:53-0400 Body weight 63.05 kg Teresa Terry MD Work Phone: [facility] 02-15-2021 10:14-0400 Body height 186.7 cm Teresa Terry MD Work Phone: [facility] 02-15-2021 10:14-0400 Body mass index (BMI) [Ratio] 20.43 kg/m2 Teresa Terry MD Work Phone: [facility] 02-15-2021 10:14-0400 Body weight 71.22 kg Teresa Terry MD Work Phone: [facility] 02-08-2021 08:46-0400 Body height 186.7 cm Jihan Orozco PA-C Work Phone: [facility] 02-08-2021 08:46-0400 Body mass index (BMI) [Ratio] 20.43 kg/m2 Jihan Orozco PA-C Work Phone: [facility] 02-08-2021 08:46-0400 Body weight 71.22 kg Jihan Orozco PA-C Work Phone: [facility] 01-22-2021 09:56-0400 Body temperature 98.4 [degF] Michelle Lindsey CNP Work Phone: [facility] 01-22-2021 09:56-0400 Diastolic blood pressure 80 mm[Hg] Michelle Forder [employer] Work Phone: [facility] 01-22-2021 09:56-0400 Heart rate 89 /min Michelle Lindsey [employer] Work Phone: [facility] 01-22-2021 09:56-0400 Respiratory rate 18 /min Michelle Lindsey [employer] Work Phone: [facility] 01-22-2021 09:56-0400 SaO2% (BldA) [Mass fraction] 91 % Michelle Lindsey [employer] Work Phone: [facility] 01-22-2021 09:56-0400 Systolic blood pressure 129 mm[Hg] Michelle Forder [employer] Work Phone: [facility] 01-14-2021 12:25-0400 Body height 186.7 cm Harpal Nieto MD Work Phone: [facility] 01-14-2021 12:25-0400 Body mass index (BMI) [Ratio] 20.43 kg/m2 Harpal Nieto MD Work Phone: [facility] 01-14-2021 12:25-0400 Body temperature 98.2 [degF] Harpal Nieto MD Work Phone: [facility] 01-14-2021 12:25-0400 Body weight 71.22 kg Harpal Nieto MD Work Phone: [facility] 01-14-2021 12:25-0400 Diastolic blood pressure 87 mm[Hg] Harpal Nieto MD Work Phone: [facility] 01-14-2021 12:25-0400 Heart rate 84 /min Harpal Nieto MD Work Phone: [facility] 01-14-2021 12:25-0400 SaO2% (BldA) [Mass fraction] 97 % Harpal Nieto MD Work Phone: [facility] 01-14-2021 12:25-0400 Systolic blood pressure 140 mm[Hg] Harpal Nieto MD Work Phone: [facility] 12-13-2020 15:04-0400 Diastolic blood pressure 86 mm[Hg] Ugo Ochoa MD Work Phone: [facility] 12-13-2020 15:04-0400 Heart rate 80 /min Ugo Ochoa MD Work Phone: [facility] 12-13-2020 15:04-0400 SaO2% (BldA) [Mass fraction] 96 % Ugo Ochoa MD Work Phone: [facility] 12-13-2020 15:04-0400 Systolic blood pressure 123 mm[Hg] Ugo Ochoa MD Work Phone: [facility] 12-13-2020 13:46-0400 Body height 185.4 cm Ugo Ochoa MD Work Phone: [facility] 12-13-2020 13:46-0400 Body mass index (BMI) [Ratio] 21.51 kg/m2 Ugo Ochoa MD Work Phone: [facility] 12-13-2020 13:46-0400 Body temperature 97.9 [degF] Ugo Ochoa MD Work Phone: [facility] 12-13-2020 13:46-0400 Body weight 73.94 kg Ugo Ochoa MD Work Phone: [facility] 12-13-2020 13:46-0400 Respiratory rate 19 /min Ugo Ochoa MD Work Phone: [facility] 10-03-2020 22:50-0400 Diastolic blood pressure 87 mm[Hg] Chontelle Degler DO Work Phone: [facility] 10-03-2020 22:50-0400 Heart rate 101 /min Chontelle Degler DO Work Phone: [facility] 10-03-2020 22:50-0400 SaO2% (BldA) [Mass fraction] 96 % Chontelle Degler DO Work Phone: [facility] 10-03-2020 22:50-0400 Systolic blood pressure 126 mm[Hg] Chontelle Degler DO Work Phone: [facility] 10-03-2020 19:10-0400 Body height 185.4 cm Chontelle Degler DO Work Phone: [facility] 10-03-2020 19:10-0400 Body mass index (BMI) [Ratio] 19.79 kg/m2 Chontelle Degler DO Work Phone: [facility] 10-03-2020 19:10-0400 Body temperature 99.5 [degF] Chontelle Degler DO Work Phone: [facility] 10-03-2020 19:10-0400 Body weight 68.04 kg Chontelle Degler DO Work Phone: [facility] 10-03-2020 19:10-0400 Respiratory rate 18 /min Chontelle Degler DO Work Phone: [facility] 09-21-2020 14:59-0400 Heart rate 93 /min Ugo Ochoa MD Work Phone: [facility] 09-21-2020 14:59-0400 Respiratory rate 17 /min Ugo Ochoa MD Work Phone: [facility] 09-21-2020 13:46-0400 Diastolic blood pressure 93 mm[Hg] Ugo Ochoa MD Work Phone: [facility] 09-21-2020 13:46-0400 Systolic blood pressure 122 mm[Hg] Ugo Ochoa MD Work Phone: [facility] 09-21-2020 11:20-0400 Body temperature 98.01 [degF] Ugo Ochoa MD Work Phone: [facility] 09-21-2020 11:20-0400 SaO2% (BldA) [Mass fraction] 96 % Ugo Ochoa MD Work Phone: [facility] 08-13-2020 11:20-0500 Body Temperature 99 [degF] [facility] 08-13-2020 11:20-0500 BP Diastolic 87 mm[Hg] [facility] 08-13-2020 11:20-0500 BP Systolic 161 mm[Hg] [facility] 08-13-2020 11:20-0500 Pulse (Heart Rate) 107 /min [facility] 08-13-2020 11:20-0500 Pulse Oximetry 93 % [facility] 08-13-2020 11:20-0500 Respiratory Rate 16 /min [facility] 08-12-2020 02:22-0500 BMI (Body Mass Index) 21.26 kg/m2 [facility] 08-12-2020 02:22-0500 Body weight 75.1 kg [facility] 08-09-2020 04:12-0500 Height 188 cm [facility] 07-26-2020 13:16-0500 Body Temperature 99 [degF] [facility] 07-26-2020 13:16-0500 BP Diastolic 108 mm[Hg] [facility] 07-26-2020 13:16-0500 BP Systolic 171 mm[Hg] [facility] 07-26-2020 13:16-0500 Pulse (Heart Rate) 98 /min [facility] 07-26-2020 13:16-0500 Pulse Oximetry 97 % [facility] 07-26-2020 13:16-0500 Respiratory Rate 18 /min [facility] 07-26-2020 11:16-0500 Body Temperature 98.6 [degF] [facility] 07-26-2020 11:16-0500 BP Diastolic 79 mm[Hg] [facility] 07-26-2020 11:16-0500 BP Systolic 132 mm[Hg] [facility] 07-26-2020 11:16-0500 Pulse (Heart Rate) 106 /min [facility] 07-26-2020 11:16-0500 Pulse Oximetry 94 % [facility] 07-26-2020 11:16-0500 Respiratory Rate 16 /min [facility] 07-25-2020 15:29-0500 BMI (Body Mass Index) 18.62 kg/m2 [facility] 07-25-2020 15:29-0500 Body [facility] 65.77 [facility] 07-25-2020 15:29-0500 Height 188 cm [facility] 07-20-2020 08:42-0500 BMI (Body Mass Index) 19.13 kg/m2 Max Wright [facility] 07-20-2020 08:42-0500 Body Temperature 99.81 [degF] Max Adriana [facility] 07-20-2020 08:42-0500 Body weight 65.77 kg Max Adriana [facility] 07-20-2020 08:42-0500 BP Diastolic 71 mm[Hg] [facility] 07-20-2020 08:42-0500 BP Systolic 114 mm[Hg] [facility] 07-20-2020 08:42-0500 Height 185.4 cm [facility] 07-20-2020 08:42-0500 Pulse (Heart Rate) 117 /[facility] 08:42-0500 [facility] 93 % [facility] 07-19-2020 15:37-0500 Respiratory Rate 16 /min [facility] 07-19-2020 12:06-0500 Body Temperature 98.2 [degF[facility] 12:[facility]00 BP Di[facility] 96 mm[facility]Hg[facility] 12:06-0500 BP [facility]stolic 157 mm[Hg[facility] 12:06-0500 Pulse (Heart Rate) 90 /min [facility] 07-19-2020 12:06-0500 [facility] 94 % [facility] 07-19-2020 08:54-0500 BMI (Body Mass Index) 19.13 kg/m[facility]-19-2020 08:54-0500 [facility] 07-19-2020 08:54-0500 Height 185.4 cm [facility] 07-10-2020 09:29-0500 BP Diastolic 114 mm[Hg] Ugo Ochoa [facility] 07-10-2020 09:29-0500 BP Systolic 151 mm[Hg] Ugo Ochoa [facility] 07-10-2020 09:29-0500 Pulse (Heart Rate) 100 /min Ugo Ochoa [facility] 07-10-2020 09:29-0500 Pulse Oximetry 100 % Ugo Ochoa [facility] 07-10-2020 09:29-0500 Respiratory Rate 14 /min Ugo Ochoa [facility] 07-10-2020 09:27-0500 Body Temperature 98.1 [degF] Ugo Ochoa [facility] 07-05-2020 19:35-0500 BP Diastolic 91 mm[Hg] Angelika Rebolledo [facility] 07-05-2020 19:35-0500 BP Systolic 130 mm[Hg] Angelika Rebolledo [facility] 07-05-2020 19:35-0500 Pulse (Heart Rate) 96 /min Angelika Rebolledo [facility] 07-05-2020 19:35-0500 Pulse Oximetry 93 % Angelika Rebolledo [facility] 07-05-2020 19:35-0500 Respiratory Rate 18 /min Angelika Rebolledo [facility] 07-05-2020 14:40-0500 Body Temperature 98.6 [degF] Angelika Rebolledo [facility] 06-19-2020 10:39-0500 BMI (Body Mass Index) 20.53 kg/m2 Wally Oswald [facility] 06-19-2020 10:39-0500 Body Temperature 98.6 [degF] Wally Oswald [facility] 06-19-2020 10:39-0500 Body weight 70.6 kg Wally Oswald [facility] 06-19-2020 10:39-0500 BP Diastolic 105 mm[Hg] Wally Oswald [facility] 06-19-2020 10:39-0500 BP Systolic 151 mm[Hg] Wally Oswald [facility] 06-19-2020 10:39-0500 Height 185.4 cm Wally Oswald [facility] 06-19-2020 10:39-0500 Pulse (Heart Rate) 97 /min Wally Oswald [facility] 06-19-2020 10:39-0500 Pulse Oximetry 93 % Wally Oswald [facility] 06-19-2020 10:39-0500 Respiratory Rate 18 /min Wally Oswald [facility] 05-28-2020 15:30-0500 BP Diastolic 94 mm[Hg] Heriberto Billings [facility] 05-28-2020 15:30-0500 BP Systolic 124 mm[Hg] [facility] 15:30-0500 Pulse (Heart Rate) 94 /min [facility] 05-28-2020 15:30-0500 Pulse Oximetry 97 % [facility] 05-28-2020 15:30-0500 Respiratory Rate 20 /min [facility] 05-28-2020 11:52-0500 BMI (Body Mass Index) 26.52 kg/m2 [facility] 05-28-2020 11:52-0500 Body Temperature 98.4 [degF] [facility] 05-28-2020 11:52-0500 Body weight 65.77 kg [facility] 05-28-2020 11:52-0500 Height 157.5 cm [facility] 04-21-2020 19:32-0500 Respiratory Rate 16 /min [facility] 19:28-0500 Body Temperature 98.1 [degF] [facility] 04-21-2020 19:28-0500 BP Diastolic 89 mm[Hg] [facility] 04-21-2020 19:28-0500 BP Systolic 151 mm[Hg] [facility] 04-21-2020 19:28-0500 Pulse (Heart Rate) 99 /min [facility] 04-21-2020 19:28-0500 Pulse Oximetry 92 % Armando Leal [facility] 04-13-2020 16:31-0500 BMI (Body Mass Index) 18.47 kg/m2 [facility] 04-13-2020 16:31-0500 Body weight 63.5 kg Armando Leal [facility] 04-13-2020 16:31-0500 Height 185.4 cm Armando Leal [facility] 04-12-2020 11:02-0500 Body Temperature 98.1 [degF] Maxime Liz [facility] 04-12-2020 11:02-0500 BP Diastolic 77 mm[Hg] Maxime Liz [facility] 11-05-2020 11:02-0500 BP Systolic 129 mm[Hg] Maxime Agusto [facility] 04-12-2020 11:02-0500 Pulse (Heart Rate) 93 /min Maxime Agusto [facility] 04-12-2020 11:02-0500 Pulse Oximetry 93 % Maxime Agusto [facility] 04-12-2020 11:02-0500 Respiratory Rate 16 /min Maxime Agusto [facility] 04-12-2020 00:12-0500 BMI (Body Mass Index) 18.87 kg/m2 Maxime Agusto [facility] 04-12-2020 00:12-0500 Body weight 64.86 kg Maxime Agusto [facility] 04-12-2020 00:12-0500 Height 185.4 cm Maxime Agusto [facility] 01-17-2020 08:58-0400 BMI (Body Mass Index) 20.8 kg/m2 [facility] 01-17-2020 08:58-0400 Body Temperature 99.1 [degF] [facility] 01-17-2020 08:58-0400 Body weight 72.48 kg Tray [facility] 01-17-2020 08:58-0400 BP [facility] 78 mm[facility]Hg[facility]-17-2020 08:58-0400 BP Systolic 157 mm[Hg[facility] 01-17-2020 08:58-0400 Pulse (Heart Rate) 108 /min [facility] 01-17-2020 08:58-0400 Pulse Oximetry 92 % [facility] 01-17-2020 08:58-0400 Respiratory Rate 18 /min [facility] 01-14-2020 13:51-0400 BP Diastolic 86 mm[Hg] Teresa [facility] 01-14-2020 13:51-0400 BP Systolic 141 mm[Hg] Teresa [facility] 01-14-2020 13:51-0400 Pulse (Heart Rate) 69 /min Teresa Anderson [facility] 01-14-2020 13:51-0400 Pulse Oximetry 100 % Teresa [facility] 01-14-2020 12:01-0400 Body Temperature 97.7 [degF] Teresa Anderson [facility] 01-14-2020 11:53-0400 BMI (Body Mass Index) 20.82 kg/m2 Teresa Anderson [facility] 01-14-2020 11:53-0400 Body weight 72.58 kg Teresa Anderson [facility] 01-14-2020 11:53-0400 Height 186.7 cm Teresa Anderson [facility] 01-14-2020 11:53-0400 Respiratory Rate 18 /min Teresa Anderson [facility] 01-02-2020 10:51-0400 BMI (Body Mass Index) 20.03 kg/m2 Leonardo Perla [facility] 01-02-2020 10:51-0400 Body weight 70.76 kg Leonardo Perla [facility] 01-02-2020 10:51-0400 BP Diastolic 92 mm[Hg] [facility] 01-02-2020 10:51-0400 BP Systolic 134 mm[Hg] [facility] 01-02-2020 10:51-0400 Height 188 [facility] 01-02-2020 10:51-0400 Pulse (Heart Rate) 97 /min [facility] 01-02-2020 10:51-0400 Respiratory Rate 18 /min [facility] 12-12-2019 09:40-0400 BMI (Body Mass Index) 20.03 kg/m2 Teresa Merino [facility] 12-12-2019 09:40-0400 Body weight 70.76 kg Teresa Merino [facility] 12-12-2019 09:40-0400 Height 188 cm Teresa Merino [facility] 11-03-2019 12:14-0400 Respiratory Rate 16 /min Angelika Oswald [facility] 11-03-2019 11:16-0400 Body Temperature 98.1 [degF] Angelika Oswald [facility] 11-03-2019 11:16-0400 BP Diastolic 85 mm[Hg] Angelika Oswald [facility] 11-03-2019 11:16-0400 BP Systolic 151 mm[Hg] Angelika Oswald [facility] 11-03-2019 11:16-0400 Pulse (Heart Rate) 75 /min Angelika Oswald [facility] 11-03-2019 11:16-0400 Pulse Oximetry 96 % Angelika Oswald [facility] 11-02-2019 16:15-0400 BMI (Body Mass Index) 18.85 kg/m2 Angelika Oswald [facility] 11-02-2019 16:15-0400 Body weight 66.6 kg Angelika Oswald [facility] 11-02-2019 16:15-0400 Height 188 cm Angelika Oswald [facility] 08-11-2019 13:18-0500 BP Diastolic 108 mm[Hg] Maxime Liz [facility] 08-11-2019 13:18-0500 BP Systolic 142 mm[Hg] Maxime Liz [facility] 08-11-2019 13:18-0500 Pulse Oximetry 98 % Maxime Agusto [facility] 08-11-2019 12:09-0500 Body Temperature 98.49 [degF] Maxime Agusto [facility] 08-11-2019 12:01-0500 Pulse (Heart Rate) 102 /min Maxime Agusto [facility] 08-11-2019 12:01-0500 Respiratory Rate 22 /min Maxime Agusto [facility] 01-10-2018 01:01-0400 BP Diastolic 76 mm[Hg] [facility] 01-10-2018 01:01-0400 BP Systolic 104 mm[Hg] [facility] 01-10-2018 01:01-0400 Pulse (Heart Rate) 87 /min [facility] 01-10-2018 01:01-0400 Pulse Oximetry 93 % [facility] 01-10-2018 01:01-0400 Respiratory Rate 14 /min [facility] 01-09-2018 19:10-0400 Body Temperature 97.39 [degF] Elijah [facility] 12-29-2017 15:14-0400 BMI (Body Mass Index) 19.79 kg/m2 [facility] 12-29-2017 15:14-0400 Body Temperature 97 [degF] [facility] 12-29-2017 15:14-0400 BP Diastolic 93 mm[Hg] [facility] 12-29-2017 15:14-0400 BP Systolic 129 mm[Hg] [facility] 12-29-2017 15:14-0400 Height 185.4 cm [facility] 12-29-2017 15:14-0400 Pulse (Heart Rate) 92 /min [facility] 12-29-2017 15:14-0400 Pulse Oximetry 97 % [facility] 12-29-2017 15:14-0400 Respiratory Rate 16 /min [facility] 12-29-2017 15:14-0400 Weight 68.04 kg [facility] 12-15-2017 08:05-0400 Body Temperature 98.1 [degF] [facility]-15-2017 08:05-0400 BP Diastolic 79 mm[Hg] [facility] [place]-15-2017 08:05-0400 BP Systolic 152 mm[Hg] Lashawn VeSelect [facility] [place] 12-15-2017 08:05-0400 Pulse (Heart Rate) 80 /min [facility] [place] 12-15-2017 08:05-0400 Pulse Oximetry 94 % [facility] [place] 12-15-2017 08:05-0400 Respiratory Rate 18 /min [facility] [place] 12-14-2017 00:53-0400 BMI (Body Mass Index) 17.19 kg/m2 [facility] [place] 12-14-2017 00:53-0400 Height 185.4 cm [facility]ashawn [facility] [place] 12-14-2017 00:53-0400 Weight 59.1 kg [facility] [place] 01-10-2017 15:49-0400 Body Temperature 97.9 [degF] Mekhi Lea [facility] Work Phone: 01-10-2017 15:49-0400 BP Diastolic 86 mm[Hg] Mekhi [facility] Work Phone: 01-10-2017 15:49-0400 BP Systolic 150 mm[Hg] Mekhi [facility] Work Phone: 01-10-2017 15:49-0400 Pulse (Heart Rate) 71 /min Mekhi Lea [facility] Work Phone: 01-10-2017 15:49-0400 Pulse Oximetry 95 % Mekhi Lea [facility] Work Phone: 01-10-2017 15:49-0400 Respiratory Rate 12 /min Mekhi Lea [facility] Work Phone: 01-10-2017 11:28-0400 BMI (Body Mass Index) 17.33 kg/m2 Mekhi [facility] Work Phone: 01-10-2017 11:28-0400 [facility] 01-09-2017 [id number] Height 188 cm Mekhi Lea [facility] Work Phone: Encounters Encounter Date Encounter Type Care Provider Facility Start: 04-21-2025 ambulatory [facility] Facility:[facility] Start: 04-19-2025 ambulatory [facility] Start: 04-18-2025 End: 04-18-2025 [facility] Start: 04-17-2025 End: 04-17-2025 [facility] Start: 04-14-2025 End: 04-14-2025 [facility] Start: 04-13-2025 End: 04-13-2025 Patient encounter procedure Jihan Rodriguez MD Work Phone: [facility] Start: 04-13-2025 End: 04-13-2025 ambulatory Jihan Rodriguez MD Work Phone: [facility] Comment on above: Prostate cancer (HCC ) (Primary Dx) Start: 04-12-2025 End: 04-12-2025 [facility] Start: 04-11-2025 End: 04-11-2025 [facility] Start: 04-10-2025 End: 04-10-2025 [facility] Start: 03-23-2025 End: 03-23-2025 ambulatory JIHAN RODRIGUEZ [facility] Start: 03-14-2025 End: 03-14-2025 Office outpatient visit 25 minutes Elijah Sanchez MD Work Phone: [facility] Comment on above: Prostate cancer (HCC ) (Primary Dx) Start: 03-14-2025 End: 03-14-2025 ambulatory [facility] Start: 03-03-2025 Non-patient / Non-visit Dr. Elijah martinez MD -[facility] Start: 03-03-2025 End: 03-03-2025 ambulatory Jihan Rodriguez MD Work Phone: [facility] Start: 03-03-2025 End: 03-03-2025 Patient encounter procedure Jihan Rodriguez MD Work Phone: [facility] Start: 03-03-2025 End: 03-03-2025 ambulatory [place] Facility:[facility] Start: 02-28-2025 End: 02-28-2025 Orders Only Jerrica Arriola RN [facility] Comment on above: Prostate cancer (HCC ) (Primary Dx) Start: 02-27-2025 End: 02-27-2025 Patient encounter procedure Jihan Rodriguez MD Work Phone: [facility] Start: 02-27-2025 End: 03-30-2025 ambulatory Elijah Sanchez MD Work Phone: [facility] Comment on above: Prostate cancer (HCC ) (Primary Dx) Start: 02-14-2025 End: 02-14-2025 Telemedicine consultation with patient Elijah Sanchez MD Work Phone: [facility] Comment on above: Prostate cancer (HCC ) (Primary Dx) Start: 02-14-2025 End: 02-18-2025 ambulatory [facility] Start: 02-01-2025 End: 02-01-2025 Emergency department patient visit Iker Blackwell MD Work Phone: -Emergency Department Work Phone: Start: 02-01-2025 End: 02-01-2025 Patient encounter procedure Elijah Sanchez MD Work Phone: [facility] Comment on above: Elevated PSA (Primar y Dx) Start: 02-01-2025 End: 02-05-2025 ambulatory [facility] Start: 01-25-2025 ambulatory Iker Blackwell Facility:[facility] Start: 01-11-2025 End: 01-11-2025 Orders Only Elijah Sanchez MD Work Phone: [facility] Comment on above: Elevated PSA (Primar y Dx) Start: 01-06-2025 End: 03-08-2025 Follow-up encounter Jihan Wooten MD Work Phone: [facility] Comment on above: MR Prostate With And Without Contrast Start: 01-02-2025 End: 01-02-2025 ambulatory JIHAN WOOTEN [facility] Start: 11-25-2024 Non-patient / Non-visit Dr. Karla Lam MD -[facility] Start: 11-25-2024 End: 11-25-2024 Orders Only Jihan Wooten MD Work Phone: [facility] Comment on above: Elevated PSA (Primar y Dx) Start: 11-25-2024 End: 11-25-[address] Iker Blackwell MD -Cardiovascular Services Work Phone: Start: 11-25-2024 End: 11-25-2024 ambulatory Iker Blackwell Facility:[facility] Start: 11-23-2024 End: 11-23-2024 ambulatory Iker Blackwell MD Work Phone: [facility] Work Phone: Start: 11-23-2024 End: 11-23-2024 Patient encounter procedure Iker Blackwell MD Work Phone: -[facility] Work Phone: Start: 11-23-2024 End: 11-23-2024 ambulatory CHINMAY NEAL Facility:[facility] Start: 11-11-2024 End: 11-11-2024 Office outpatient visit 25 minutes Jihan Wooten MD Work Phone: [facility] Comment on above: Peyronie disease (Pr imary Dx); BPH with obstruction/lower urinary tract symptoms; Elevated PSA Start: 11-11-2024 End: 11-11-2024 ambulatory JIHAN WOOTEN [facility] Start: 10-28-2024 End: 10-28-2024 Office outpatient new 45 minutes Kvng Escoto PA-C Work Phone: [facility] Comment on above: Benign prostatic hyp erplasia, unspecified whether lower urinary tract symptoms present (Primary Dx); Peyronie disease; Elevated PSA; Bladder outlet obstruction Start: 10-28-2024 End: 10-28-2024 ambulatory KVNG ESCOTO [facility] Ambulatory Start: 10-17-2024 End: 10-18-2024 Transcribe Orders Cait Vasquez MA [facility] Comment on above: Injury to penis (Amanda wally Dx) Start: 09-21-2024 End: 09-21-2024 ambulatory Iker Blackwell MD Work Phone: [facility] Work Phone: Start: 09-21-2024 End: 09-21-[address] Iker Blackwell MD -Ultrasound, [facility] Work Phone: Start: 09-21-2024 End: 09-21-2024 ambulatory Iker Blackwell Facility:[facility] Start: 08-18-2024 End: 08-18-2024 Emergency department patient visit Iker Blackwell MD Work Phone: -Emergency Department Work Phone: Start: 08-10-2024 ambulatory Eron Enrique Facility:[facility] Start: 08-10-2024 Non-patient / Non-visit Dr. Eron stevenson MD -[facility] Start: 08-10-2024 End: 08-10-2024 ambulatory Iker Blackwell MD Work Phone: [facility] Work Phone: Start: 08-10-2024 End: 08-10-[address] Iker Blackwell MD -Cardiovascular Services Work Phone: Start: 08-10-2024 End: 08-10-2024 ambulatory Iker Blackwell Facility:[facility] Start: 08-02-2024 End: 08-02-2024 Non-patient / Non-visit Dr. Jihan Daly MD -[place] [facility] Work Phone: Start: 08-02-2024 End: 08-02-2024 ambulatory Iker Blackwell MD Work Phone: [facility] Work Phone: Start: 08-02-2024 End: 08-02-[address] Iker Blackwell MD -Pulmonary Services/Neurology Work Phone: Start: 08-02-2024 End: 08-02-2024 ambulatory [facility] Facility:[facility] Start: 07-21-2024 End: 07-21-[address] [facility] Start: 07-21-2024 End: 07-21-2024 ambulatory [facility] Facility:[facility] Start: 07-05-2024 End: 07-05-2024 Emergency department patient visit Dr. Dale VargasDalton DO -Emergency Department Work Phone: Start: 06-02-2024 Non-patient / Non-visit Dr. Soraya Womack MD -[facility] Start: 06-02-2024 End: 06-02-2024 Admission to same day surgery center Dr. Nabeel Womack MD -Endoscopy Work Phone: Start: 06-02-2024 End: 06-02-2024 ambulatory [facility] Facility:[facility] Start: 05-30-2024 End: 05-31-2024 Emergency department patient visit Dr. Alcides Hanks DO -Emergency Department Work Phone: Start: 05-23-2024 Non-patient / Non-visit Dr. Elijah engel DO -[place] [facility] Work Phone: Start: 05-22-2024 Non-patient / Non-visit Dr. Elijah engel DO [facility] Inpatient Physicians Work Phone: Start: 05-21-2024 Non-patient / Non-visit Dr. Elijah engel -[place] [facility] Work Phone: Start: 05-20-2024 End: 05-23-2024 ambulatory Noelle Fleming Facility:[facility] Start: 05-20-2024 End: 05-23-2024 Evaluation and management of inpatient Dr. Elijah Guerrero DO -Medical Surgical 3 Work Phone: Start: 05-18-2024 Non-patient / Non-visit Dr. Elijah Eastman toro DO [facility] Inpatient Physicians Work Phone: Start: 05-17-2024 End: 05-18-2024 ambulatory Nicolas Hall Facility:[facility] Start: 05-17-2024 End: 05-18-2024 Evaluation and management of inpatient Dr. Elijah Guerrero DO Medical Surgical 3 Work Phone: Start: 11-10-2023 Transcribe Orders Provider Not In System [facility] Cardio Pulmonary Rehab Comment [...] Dx) Start: 11-04-2023 ambulatory TERESA GAY Facility :[facility] Start: 11-03-2023 End: 11-03-2023 ambulatory Keyana Ibarra RN Primary Care - General Internal Medicine Outpatient Care [facility] Start: 11-03-2023 End: 11-03-2023 Patient encounter procedure Keyana Ibarra RN Primary Care - General Internal Medicine Outpatient Care [facility] Start: 10-31-2023 End: 11-01-2023 ambulatory IVONNE Boss [facility] Start: 10-29-2023 End: 10-31-2023 ambulatory KIRK RAGLAND Facility:[facility] Start: 10-29-2023 End: 10-31-2023 Evaluation and management of inpatient Reji Al MD Work Phone: [email or web address] Comment on above: Chronic obstructive pulmonary disease with acute exacerbation Start: 10-25-2023 End: 10-27-2023 ambulatory MATT IYER [facility] Start: 10-25-2023 End: 10-27-2023 Emergency department patient visit Alyce Cabral DO Work Phone: [facility] Medical Observation Start: 10-22-2023 End: 10-26-2023 Telephone encounter France Mc[facility] [place] [facility] Comment on above: Insurance Start: 10-19-2023 End: 10-19-2023 Telephone encounter Kiersten Cerna RN Primary Care - General Internal Medicine Outpatient Care [facility] Comment on above: Results Start: 10-12-2023 End: 10-12-2023 Subsequent hospital visit by physician Chuy Cheek CERTIFIED PEDORTHOTIST-AVIONICS SYSTEMS ENGINEER Work Phone: Imaging Outpatient Care [facility] Comment on above: Arrived Start: 10-08-2023 End: 10-08-2023 Patient encounter status Ivonne Henry MD Work Phone: [facility] Start: 10-08-2023 End: 10-08-2023 Subsequent hospital visit by physician Ivonne Henry MD Work Phone: [facility] Comment on above: Arrived Start: 10-05-2023 End: 10-05-2023 Telephone encounter Latisha Buchanan RN Primary Care - General Internal Medicine Outpatient Care [facility] Comment on above: Results Start: 10-02-2023 End: 10-02-2023 Office outpatient new 30 minutes Ivonne Henry MD Work Phone: Primary Care - General Internal Medicine Outpatient Care [facility] Comment on above: Other emphysema (Amanda wally [...] encounter status Ivonne Henry MD Work Phone: [facility] Start: 08-19-2021 End: 08-21-2021 Emergency department patient visit [facility] [place] [facility] Work Phone: [facility] Oncology/Surgery Start: 08-15-2021 Orders Only Esha baig PA-C Work Phone: [facility] Comment on above: Chronic low back enedelia n with left-sided sciatica, unspecified back pain laterality (Primary Dx) Start: 08-05-2021 End: 08-05-2021 Office outpatient visit 15 minutes Elpidio Teran DO Work Phone: [facility] Comment on above: Chronic low back enedelia n with left-sided sciatica, unspecified back pain laterality (Primary Dx); Sciatica of left side Start: 06-25-2021 End: 06-25-2021 Office outpatient visit 15 minutes Karma Mark CNP Work Phone: [facility] Comment on above: Chronic low back enedelia n with left-sided sciatica, unspecified back pain laterality (Primary Dx); Impaired sensation to light touch; Left leg weakness; Asymmetrical deep tendon reflexes Start: 06-05-2021 Orders Only Michelle roberts AVIONICS SYSTEMS ENGINEER Work Phone: [facility] Start: 05-17-2021 Transcribe Orders Karma Mark CNP Work Phone: [facility] Comment on above: Chronic low back enedelia n with left-sided sciatica, unspecified back pain laterality (Primary Dx) Start: 05-07-2021 Orders Only Michelle roberts AVIONICS SYSTEMS ENGINEER Work Phone: [facility] Start: 03-15-2021 End: 03-15-2021 Postop follow up visit related to original px Teresa Terry MD Work Phone: [facility] Comment on above: History of total rig ht hip replacement (Primary Dx) Start: 02-15-2021 End: 02-15-2021 Postop follow up visit related to original px Teresa Terry MD Work Phone: [facility] Comment on above: History of total rig ht hip replacement (Primary Dx) Start: 02-08-2021 End: 02-08-2021 Postop follow up visit related to original px Jihan Orozco PA-C Work Phone: [facility] Comment on above: Status post right hi p replacement (Primary Dx) Start: 01-31-2021 End: 01-31-2021 Home visit Daniella Christianson RN [facility] Comment on above: SN HH NON ADMIT VISI T Start: 01-29-2021 ambulatory Tamera Rivera RN [facility] Start: 01-29-2021 Documentation procedure Tamera new RN [facility] Start: 01-29-2021 ambulatory TAMERA RIVERA [facility] Start: 01-28-2021 End: 01-28-2021 Anesthesia consultation Dioni Padron MD Work Phone: [facility] Periop Start: 01-23-2021 Refill Teresa dennis MD Work Phone: [facility] Comment on above: Primary osteoarthrit is of right hip (Primary Dx) Start: 01-22-2021 End: 01-22-2021 Office outpatient visit 25 minutes Michelle Lindsey CNP Work Phone: [facility] Comment on above: Preop pulmonary/resp iratory exam (Primary Dx); Chronic obstructive pulmonary disease with acute exacerbation (HCC); Tobacco dependence; Homeless; Illiterate Start: 01-22-2021 End: 01-22-2021 Patient encounter status Michelle Lindsey CNP Work Phone: [facility] Start: 01-14-2021 End: 01-14-2021 Office consultation new/estab patient 60 min Teresa Terry MD Work Phone: [facility] Preadmission Testing Comment on above: [...] encounter status Teresa Terry MD Work Phone: [facility] Preadmission Testing Start: 01-14-2021 End: 01-14-2021 Preprocedural examination done Teresa Terry MD Work Phone: [facility] Preadmission Testing Start: 01-10-2021 End: 01-10-2021 ambulatory [facility] - Primary Care and Sports Medicine Start: 01-07-2021 End: 01-07-2021 Orders Only Jihan Orozco PA-C Work Phone: [facility] Comment on above: Primary osteoarthrit is of right hip (Primary Dx) Start: 12-25-2020 End: 12-25-2020 Admission to same day surgery center Teresa Terry MD Work Phone: [facility] Comment on above: Primary osteoarthrit is of right hip (Primary Dx); Exposure to SARS-associated coronavirus Start: 12-13-2020 End: 12-13-2020 Emergency department patient visit Ugo Ochoa MD Work Phone: [facility] Emergency Department Start: 10-03-2020 End: 10-03-2020 Emergency department patient visit John Montes DO Work Phone: [facility] Emergency Department Start: 09-21-2020 End: 09-21-2020 Emergency department patient visit Ugo Ochoa MD Work Phone: [facility] Emergency Department Start: 08-08-2020 End: 08-13-2020 Evaluation and management of inpatient Dani Ewing Work Phone: [facility] Cardiac/CVT Start: 08-08-2020 End: 08-08-2020 Orders Only Ariadne Oviedo Az Work Phone: [facility] Start: 07-26-2020 End: 07-26-2020 Emergency department patient visit Boogie Willettell Work Phone: [facility] Emergency Department Comment on above: Syncope, unspecified syncope type (Primary Dx) Start: 07-25-2020 End: 07-26-2020 Emergency department patient visit Flores Mayen Work Phone: [facility] Rapid Diagnosis Comment on above: Shortness of breath (Primary Dx); Acute exacerbation of chronic obstructive pulmonary disease (COPD) (HCC); Bilateral edema of lower extremity Start: 07-20-2020 End: 07-20-2020 Office outpatient new 30 minutes Max Wright Work Phone: [facility] - Sports Medicine and Primary Care Comment on above: Primary osteoarthrit is of right hip (Primary Dx) Start: 07-17-2020 End: 07-19-2020 Evaluation and management of inpatient Ophelia Rasheed Work Phone: [facility] Trauma Intermediate Care Unit Comment on above: COPD exacerbation (H CC) (Primary Dx); Dyspnea, unspecified type; Tobacco Abuse; Leukocytosis, unspecified type; Chronic obstructive pulmonary disease, unspecified COPD type (HCC); Chronic obstructive pulmonary disease with acute exacerbation (HCC); Globus sensation Start: 07-10-2020 End: 07-10-2020 Emergency department patient visit Ugo Ochoa Work Phone: [facility] Emergency Department Comment on above: Fall, initial encoun ter (Primary Dx); Chronic hip pain, unspecified laterality; Osteoarthritis, unspecified osteoarthritis type, unspecified site Start: 07-05-2020 End: 07-05-2020 Emergency department patient visit Angelika Rebolledo Work Phone: [facility] Emergency Department Comment on above: COPD exacerbation (H CC) (Primary Dx) Start: 06-21-2020 End: 06-21-2020 Documentation procedure Michelle Lindsey Work Phone: [facility] Start: 06-19-2020 End: 06-19-2020 Office consultation new/estab patient 80 min Karma Mark Work Phone: [facility] Preadmission Testing Comment on above: [...] 06-15-2020 Orders Only Radrew Perla Work Phone: [facility] Comment on above: Hydrocele, unspecifi ed hydrocele type (Primary Dx); Epididymal cyst Start: 06-14-2020 End: 06-14-2020 Telemedicine consultation with patient Michelle Lindsey Work Phone: [facility] Comment on above: Chronic obstructive pulmonary disease, unspecified COPD type (HCC) (Primary Dx); Multifocal pneumonia; Tobacco use; History of drug use Start: 05-28-2020 End: 05-28-2020 Emergency department patient visit Heriberto Billings Work Phone: [facility] Emergency Department Comment on above: Acute exacerbation o f chronic obstructive pulmonary disease (COPD) (HCC) (Primary Dx); Tachycardia Start: 05-21-2020 End: 05-21-2020 Office outpatient visit 5 minutes Leonardo Perla Work Phone: [facility] Comment on above: Hydrocele, unspecifi ed hydrocele type (Primary Dx) Start: 04-13-2020 End: 04-21-2020 Evaluation and management of inpatient Carlynn Nayeli Fulp Work Phone: [facility] General Medicine Comment on above: [...] department patient visit Maxime Liz Work Phone: [facility] Rapid Diagnosis Comment on above: COPD exacerbation (H CC) (Primary Dx); Cough; SOB (shortness of breath); Bilateral hip pain Start: 03-19-2020 End: 03-19-2020 Subsequent hospital visit by physician García Gunn Work Phone: [facility] Diagnostics Comment on above: COPD with acute exac erbation (HCC) Start: 02-03-2020 End: 02-03-2020 Documentation procedure Leonardo Perla Work Phone: [facility] Start: 01-17-2020 End: 01-17-2020 Office outpatient new 30 minutes Leonardo Perla Work Phone: [facility] Surgical Medicine [place] Comment on above: Bilateral inguinal h ernia without obstruction or gangrene, recurrence not specified Start: 01-14-2020 End: 01-14-2020 Emergency department patient visit Teresa Anderson Work Phone: [facility] Emergency Department Comment on above: SOB (shortness of br eath) (Primary Dx); COPD exacerbation (HCC); Smoker Start: 01-02-2020 End: 01-02-2020 Office outpatient new 45 minutes Karma Mark Work Phone: [facility] Comment on above: Bilateral inguinal h ernia without obstruction or gangrene, recurrence not specified (Primary Dx); Epididymal cyst Start: 12-29-2019 End: 12-29-2019 Subsequent hospital visit by physician Karma Mark Work Phone: [facility] Comment on above: Trouble breathing; Chest pain, unspecified type Start: 12-13-2019 End: 12-13-2019 Admission to abdoul Gunn [facility] Start: 12-12-2019 End: 12-12-2019 Subsequent hospital visit by physician Teresa Merino Work Phone: [facility] Comment on above: Primary osteoarthrit is of right hip Start: 12-12-2019 End: 12-12-2019 Office outpatient new 30 minutes Teresa Merino Work Phone: [facility] Comment on above: Primary osteoarthrit is of right hip Start: 11-02-2019 End: 11-03-2019 Emergency department patient visit Angelika Oswald Work Phone: [facility] Rapid Diagnosis Comment on above: Chest pain, unspecif ied type (Primary Dx); Syncope and collapse Start: 11-02-2019 End: 11-02-2019 Subsequent hospital visit by physician Karma Mark Work Phone: [facility] Comment on above: Retention of urine, unspecified Start: 10-21-2019 End: 10-21-2019 Subsequent hospital visit by physician Karma Mark Work Phone: [facility] Comment on above: Testicle swelling Start: 08-17-2019 End: 08-17-2019 Subsequent hospital visit by physician García Gunn Work Phone: [facility] Comment on above: Chronic right hip pa in Start: 08-11-2019 End: 08-11-2019 Emergency department patient visit Maxime Liz Work Phone: [facility] Emergency Department Comment on above: Acute exacerbation o f chronic obstructive pulmonary disease (COPD) (HCC) (Primary Dx) Start: 08-04-2019 End: 08-04-2019 Subsequent hospital visit by physician García Gunn Work Phone: [facility] Comment on above: SOB (shortness of br eath) on exertion Start: 01-09-2018 End: 01-10-2018 Emergency department patient visit Elijah Max Reis Work Phone: [facility] Emergency Department Start: 12-29-2017 End: 12-29-2017 Office outpatient visit 40 minutes Marj Tejada Work Phone: [facility] Start: 12-21-2017 Patient encounter Violetta Knowles [facility] Outpatient [facility] Start: 12-13-2017 End: 12-15-2017 Emergency department patient visit Lashawn Capone Work Phone: [facility] Rapid Diagnosis [place] Start: 01-09-2017 End: 01-10-2017 Emergency department patient visit Mekhi Lea Work Phone: [facility] Medical Observation Comment on above: Transient cerebral i schemia, unspecified type (Primary Dx) Procedures Date Procedure Procedure Detail Performing Clinician Start: 04-13-2025 RADIATION THERAPY - UNVERIFIED DATA IMPORTED FROM LumoidA Treatment Results Radiation Oncology Start: 02-27-2025 PSA [...] #### [phone] #### [facility] [address] [address] Refugio Nunez M.D. [id number] Start: 02-01-2025 Estimated creatinine clearance Iker leal MD Work Phone: Start: 02-01-2025 Us guidance needle placement img s&i Elijah Sanchez MD Work Phone: Start: 11-23-2024 Free prostate specific antigen level Iker Blackwell MD Work Phone: Comment on above: Dimitris ECLIA methodology. Start: 11-23-2024 Prostate specific antigen measurement Iker Blackwell MD Work Phone: Comment on above: Dimitris ECLIA methodology.According to the [place] [employer], Serum PSAshould decrease and remain [...] Start: 10-26-2023 Radiologic exam chest single view iLsa Barnett CNP Work Phone: Start: 10-25-2023 Radiologic [...] by MOMO with probe detection Zoe Moreira [employer] ENGINE[employer] Work Phone: Start: 08-19-2021 Radiologic exam chest single view Zoe Moreira [employer] Work Phone: Start: 08-19-2021 Gases blood ph direct margie xcpt pulse oximitry Paige Perla MD Work Phone: Start: 08-19-2021 End: 08-19-2021 Ecg routine ecg w/least 12 lds w/i&r Zoe Moreira [facility] Work Phone: Start: 08-19-2021 Basic metabolic panel [...] Respiratory specimen by MOMO with probe detection Vkng Olivia DO Work Phone: Start: 10-03-2020 Radex [...] Ecg routine ecg w/least 12 lds w/i&r Load Blocker Generic Start: 08-13-2020 12 lead ECG Load Blocker Generic Start: 08-13-2020 Basic metabolic 2000 panel - Serum or Plasma Pablo Davila Work Phone: Start: 08-13-2020 Complete blood count with white cell differential, automated Pablo Davila Work Phone: Start: 08-13-2020 Complete blood count with white cell differential, manual aPblo Davila Work Phone: Start: 08-12-2020 Dup-scan xtr [...] Work Phone: Start: 08-09-2020 12 lead ECG Load Blocker Generic Start: 08-09-2020 End: 08-09-2020 Bacteria identified [...] Work Phone: Start: 07-26-2020 12 lead ECG Load Blocker Generic Start: 07-26-2020 Adult depression screening assessment [...] Work Phone: Start: 07-25-2020 12 lead ECG Load Blocker Generic Start: 07-18-2020 Electrocardiogram Provider Not In [...] Work Phone: Start: 07-17-2020 12 lead ECG Load Blocker Generic Start: 07-10-2020 Radiologic examination femur minimum [...] Work Phone: Start: 07-05-2020 12 lead ECG Load Blocker Generic Start: 06-19-2020 Basic metabolic 1999 panel [...] Start: 04-14-2020 End: 04-14-2020 12 lead ECG Load Blocker Generic Start: 04-14-2020 Troponin measurement Hamlet Wynn [...] Work Phone: Start: 04-13-2020 12 lead ECG Load Blocker Generic Start: 04-13-2020 Radiologic exam chest single [...] Howe Work Phone: Start: 11-02-2019 LAVENDER TOP Nagelika Darek Work Phone: Start: 11-02-2019 LIGHT BLUE [...] Work Phone: Start: 08-11-2019 12 lead ECG Load Blocker Generic Start: 08-04-2019 Standard chest X-ray External Transcribe d Start: 01-10-2018 End: 01-10-2018 Electrocardiogram Provider Not In System Start: 12-14-2017 End: 12-14-2017 Electrocardiogram Provider Not In System Start: 01-10-2017 End: 01-10-2017 Echo tthrc r-t 2d w/wom-mode compl spec&colr d Ugo Jiang Plan of Treatment Date Care Activity Detail Author Start: 10-01-2028 Lipid panel LIPID SCREENING [facility] Start: 02-27-2027 Prostate specific antigen measurement PSA Level [facility] Start: 05-25-2025 End: 05-25-2025 ambulatory 05/25/2025 11:00 AM EST Rad[facility] [address] [place] [address] Jihan Rodriguez MD [facility] [place] [address] [facility] Start: 05-22-2025 End: 05-22-2025 ambulatory 05/22/2025 10:45 AM EST [facility] [address] [place] [address] [facility] Start: 05-19-2025 End: 05-19-2025 ambulatory 05/19/2025 10:45 AM EST [facility] [address] [place] [address] [facility] Start: 05-18-2025 End: 05-18-2025 ambulatory [facility] Start: 05-17-2025 End: 05-17-2025 ambulatory 05/17/2025 10:45 AM EST [facility] [address] [place] [address] [facility] Start: 05-16-2025 End: 05-16-2025 ambulatory 05/16/2025 10:45 AM EST [facility] [address] [place] [address] [facility] Start: 05-15-2025 End: 05-15-2025 ambulatory 05/15/2025 10:45 AM EST [facility] [address] [place] [address] [facility] Start: 05-12-2025 End: 05-12-2025 ambulatory 05/12/2025 10:45 AM EST [facility] [address] [place] [address] [facility] Start: 05-11-2025 End: 05-11-2025 ambulatory [facility] Start: 05-10-2025 End: 05-10-2025 ambulatory 05/10/2025 10:45 AM EST [facility] [address] [place] [address] [facility] Start: 05-09-2025 End: 05-09-2025 ambulatory 05/09/2025 10:45 AM EST [facility] [address] [place] [address] [facility] Start: 2025 Pneumococcal Vaccine: Ped or At-Risk (2 of 2 - PPSV23) Pneumococcal Vaccine: Ped or At-Risk (2 of 2 - PPSV23) [facility] Start: 2025 End: 2025 ambulatory 2025 10:45 AM EST [facility] [address] [place] [address] [facility] Start: 05-03-2025 End: 05-03-2025 ambulatory 05/03/2025 10:45 AM EST [facility] [address] [place] [address] [facility] Start: 05-02-2025 End: 05-02-2025 ambulatory 05/02/2025 10:45 AM EST [facility] [address] [place] [address] [facility] Start: 05-01-2025 End: 05-01-2025 ambulatory 05/01/2025 10:45 AM EST [facility] [address] [place] [address] [facility] Start: 04-28-2025 End: 04-28-2025 ambulatory 04/28/2025 10:45 AM EST [facility] [address] [facility] [place] [address] [facility] Start: 04-27-2025 End: 04-27-2025 ambulatory [facility] Start: 04-26-2025 End: 04-26-2025 ambulatory 04/26/2025 10:45 AM EST [facility] [address] [facility] [address] [facility] Start: 04-25-2025 End: 04-25-2025 ambulatory 04/25/2025 10:45 AM EST [facility] [address] [place] [address] [facility] Start: 04-24-2025 End: 04-24-2025 ambulatory 04/24/2025 10:45 AM EST [facility] [address] [place] [address] [facility] Start: 04-21-2025 End: 04-21-2025 ambulatory 04/21/2025 10:45 AM EST [facility] [address] [place] [address] [facility] Start: 04-20-2025 End: 04-20-2025 ambulatory [facility] Start: 04-19-2025 End: 04-19-2025 ambulatory 04/19/2025 10:45 AM EST [facility] [address] [facility] [address] [facility] Start: 04-18-2025 End: 04-18-2025 ambulatory 04/18/2025 10:45 AM EST [facility] [address] [facility] [address] [facility] Start: 04-17-2025 End: 04-17-2025 ambulatory 04/17/2025 10:45 AM EST [facility] [address] [place] [address] [facility] Start: 04-14-2025 End: 04-14-2025 ambulatory 04/14/2025 10:45 AM EST [facility] [address] [place] [address] [facility] Start: 03-23-2025 End: 03-23-2025 Patient encounter procedure 03/23/2025 9:00 AM EDT Office Visit [facility] Physician [facility] [address] [place] [address] Jihan Rodriguez MD [address] [place] [address] Lance Patterson MD [address] [address] [facility] Start: 03-16-2025 End: 03-16-2025 ambulatory [facility] Radiation Oncology Start: 03-14-2025 End: 03-14-2025 Patient encounter procedure 03/14/2025 1:45 PM EDT Office Visit [facility] Physician [facility] [address] [facility] [address] [place] [address] Elijah Sanchez MD [address] [facility] [address] [place] [address] [facility] Physician [facility] Start: 03-03-2025 End: 03-03-2025 ambulatory 03/03/2025 1:00 PM EDT Radiation Oncology [facility] Radiation Oncology [address] [place] [address] Jihan Rodriguez MD [address] [place] [address] [facility] Start: 02-14-2025 End: 02-14-2025 Telemedicine consultation with patient 02/14/2025 3:00 PM EDT Telemedicine Telephone [facility] [address] [facility] [address] [place] [address] Elijah Sanchez MD [address] [facility] [address] [place] [address] [facility] Physician [facility] Start: 02-13-2025 End: 02-13-2025 Patient encounter procedure 02/13/2025 11:00 AM EDT Office Visit [facility] [address] [facility] [address] [place] [address] Kvng Escoto PA-C [address] [address] [facility] Start: 02-06-2025 COVID-19 Vaccine ( season) COVID-19 Vaccine ( season) [facility] Start: 02-06-2025 Influenza vaccination [facility] Start: 02-01-2025 [facility] Start: 02-01-2025 End: 02-01-2025 Patient encounter procedure 02/01/2025 11:00 AM EDT Procedure visit [facility] Physician [facility] [address] [address] Elijah Sanchez MD [address] [address] [facility] Start: 12-02-2024 End: 11-25-2025 MR Prostate WO and W contrast IV MR Prostate With And Without Contrast Imaging Routine Elevated PSA Expected: 12/02/2024, Expires: 11/25/2025 [facility] Work Phone: Comment on above: Expected: 12/02/2024, Expires: Start: 11-23-2024 Assay of prostate specific antigen free ASSAY OF PSA FREE [facility] Start: 11-23-2024 Free prostate specific antigen level ASSAY OF PSA FREE [facility] Start: 11-11-2024 End: 11-11-2024 Patient encounter procedure 11/11/2024 10:30 AM EDT Office Visit [facility] Physician [facility] [address] [facility] [address] [place] [address] Jihan Wooten MD [address] [facility] [address] [place] [address] [facility] Phys[facility] Start: 10-30-2024 Potassium [Moles/volume] in Serum or Plasma POTASSIUM [facility] Start: 10-28-2024 End: 10-28-2024 Patient encounter procedure 10/28/2024 9:40 AM EDT Office Visit [facility] Physician [facility] [address] [facility] [address] [place] [address] Kvng Escoto PA-C [address] [address] [facility] Start: 10-01-2024 Potassium [Moles/volume] in Serum or Plasma POTASSIUM [facility] Start: 10-01-2024 Prostate specific antigen measurement PROSTATE CANCER SCREENING DISCUSSION [facility] Start: 08-18-2024 [facility] Start: 07-05-2024 [facility] Start: 06-02-2024 Egd flexible foreign body removal EGD REMOVE FOREIGN BODY [facility] Start: 06-02-2024 Patient discharge [facility] Start: 05-31-2024 [facility] Start: 05-30-2024 End: 05-30-2024 [facility] Start: 05-23-2024 Patient discharge [facility] Start: 05-22-2024 Inhalation therapy procedure [facility] Start: 05-20-2024 Following clinical pathway protocol [facility] Start: 05-20-2024 Assessment of risk of venous thromboembolism [facility] Start: 05-20-2024 Insertion of catheter into peripheral vein [facility] Start: 05-20-2024 Introduction of urinary catheter [facility] Start: 05-20-2024 Measuring intake and output [facility] Start: 05-20-2024 Oxygen therapy [facility] Start: 05-20-2024 Providing care according to standard [facility] Start: 05-20-2024 Provision of activity privileges [facility] Start: 05-20-2024 Referral to service [facility] Start: 05-20-2024 Tobacco use cessation education [facility] Start: 05-20-2024 [facility] Start: 05-20-2024 Admission procedure [facility] Start: 05-18-2024 Patient discharge [facility] Start: 05-18-2024 Consultation [facility] Start: 05-17-2024 End: 05-17-2024 [facility] Start: 05-17-2024 Following clinical pathway protocol [facility] Start: 05-17-2024 Ambulation without limitation [facility] Start: 05-17-2024 Assessment of risk of venous thromboembolism [facility] Start: 05-17-2024 Inhalation therapy procedure [facility] Start: 05-17-2024 Insertion of catheter into peripheral vein [facility] Start: 05-17-2024 Oxygen therapy [facility] Start: 05-17-2024 Providing care according to standard [facility] Start: 05-17-2024 Referral to service [facility] Start: 05-17-2024 Admission procedure [facility] Start: 02-07-2024 COVID-19 Vaccine ( season) COVID-19 Vaccine ( season) [facility] Start: 02-07-2024 Influenza vaccination INFLUENZA VACCINE (Season Ended) [facility] Start: 02-02-2024 End: 02-02-2024 Patient encounter procedure 02/02/2024 1:40 PM EDT Office Visit Primary Care - General Internal Medicine Outpatient Care [facility] [address] [facility] [address] [place] [address] Ivonne Henry MD [address] [facility] [address] [place] [address] Primary Care - General Internal Medicine Outpatient Care [facility] Start: 01-05-2024 End: 01-05-2024 Patient encounter procedure 01/05/2024 11:20 AM EDT Office Visit Primary Care - General Internal Medicine Outpatient Care [facility] [address] [phone] Ivonne Henry MD [address] [phone] Primary Care - General Internal Medicine Outpatient Care [facility] Start: 11-16-2023 End: 10-04-2024 PSA screening PSA, SCREENING Lab Routine Elevated PSA Expected: 11/16/2023, Expires: 10/04/2024 [facility] Comment on above: Expected: 11/16/2023, Expires: Start: 10-30-2023 End: 10-30-2023 Patient encounter procedure 10/30/2023 2:30 PM EDT Office Visit Spine Care Outpatient Care [facility] [address] [place] [address] Phil Mckeon MD [address] [phone] Spine Care Outpatient Care [facility] Start: 10-12-2023 End: 10-12-2023 Patient encounter procedure [facility] [place] Start: 10-06-2023 End: 10-06-2023 Patient encounter procedure 10/06/2023 2:30 PM EDT Appointment Lung Care Outpatient Care [facility] [address] [facility] [address] [phone] Ivonne Henry MD [address] [phone] Lung Care Outpatient Care [facility] Start: 10-05-2023 End: 10-04-2024 H. PYLORI WITH CLARITHROMYCIN RESISTANCE PREDICTION, PCR H. PYLORI WITH CLARITHROMYCIN RESISTANCE PREDICTION, PCR Fluids Routine PUD (peptic ulcer disease) Expected: 10/05/2023, Expires: 10/04/2024 [facility] Comment on above: Expected: 10/05/2023, Expires: 5 Start: 10-02-2023 End: 10-01-2024 Measurement of respiratory function PFT STANDARD PFT Routine Other emphysema Health care maintenance Expected: 10/02/2023, Expires: 10/01/2024 [facility] Comment on above: Expected: 10/02/2023, Expires: Start: 02-06-2023 COVID-19 VACCINE () COVID-19 VACCINE () [facility] Start: 02-06-2023 COVID-19 Vaccine () COVID-19 Vaccine () [facility] Start: 09-05-2021 End: 09-05-2021 Patient encounter procedure 09/05/2021 Office Visit Pain Medicine Esha Bergeron PA-C [address] [place] [address] Tray Pitt MD [address] [place] [address] [place] [address] [facility] Start: 07-26-2021 Depression screening using PHQ-9 (Patient Health Questionnaire 9) score [facility] Start: 06-25-2021 End: 06-25-2021 Patient encounter procedure 06/25/2021 Office Visit Orthopedic Surgery Karma Mark, [employer] [address] [place] [address] Elpidio Teran, [address] [place] [address] [facility] Start: 06-09-2021 COVID-19 Vaccine (3 - Booster for Pfizer series) COVID-19 Vaccine (3 - Booster for Pfizer series) [facility] Start: 05-09-2021 COVID-19 Vaccine (3 - Booster for Pfizer series) COVID-19 Vaccine (3 - Booster for Pfizer series) [facility] Start: 04-13-2021 Screening for malignant neoplasm of lung Low-dose CT Lung Cancer Screen [facility] Start: 03-15-2021 End: 03-15-2021 Patient encounter procedure 03/15/2021 Office Visit Orthopedic Surgery Teresa Terry MD [address] [place] [address] [facility] Start: 02-15-2021 End: 02-15-2021 Patient encounter procedure [facility] Start: 02-06-2021 Influenza vaccination Sequential Influenza Vaccine (#1) [facility] Start: 01-28-2021 End: 01-28-2021 Anesthesia consultation 01/28/2021 Anesthesia Event George Fam II [facility] [place] [facility] Start: 01-28-2021 End: 01-28-2021 ARTHROPLASTY HIP ARTHROPLASTY HIP Primary osteoarthritis of right hip 01/28/2021 12:15 PM EDT [facility] Start: 01-28-2021 End: 01-28-2021 Admission to same day surgery center [facility] Comment on above: RIGHT TOTAL HIP ARTHROPLASTY Start: 01-28-2021 Subsequent hospital visit by physician [facility] Start: 01-24-2021 End: 01-24-2021 Patient encounter procedure 01/24/2021 Office Visit Lab Jihan Orozco PA-C [address] [place] [address] [phone] [facility] [place] Start: 01-14-2021 End: 01-14-2021 Patient encounter procedure 01/14/2021 Office Visit Pre-Admission Testing Teresa Terry MD [address] [place] [address] [phone] [facility] Preadmission Testing Start: 11-01-2020 Depression screening using PHQ-9 (Patient Health Questionnaire 9) score Depression Screening (PHQ9) [facility] Start: 10-23-2020 COVID-19 Vaccine (2 - Pfizer 2-dose series) COVID-19 Vaccine (2 - Pfizer 2-dose series) [facility] Start: 10-23-2020 End: 10-23-[address] [facility] Start: 10-22-2020 End: 10-22-2020 Patient encounter procedure [facility] Start: 08-17-2020 Pneumococcal Vaccine: 50+ Years (2 of 2 - PCV) Pneumococcal Vaccine: 50+ Years (2 of 2 - PCV) [facility] Start: 08-17-2020 Pneumococcal Vaccine: Age 50+ (2 of 2 - PCV) Pneumococcal Vaccine: Age 50+ (2 of 2 - PCV) [facility] Start: 08-17-2020 Pneumococcal Vaccine: Ped or At-Risk (2 of 2 - PCV) Pneumococcal Vaccine: Ped or At-Risk (2 of 2 - PCV) [facility] Start: 07-20-2020 End: 07-20-2020 Office Visit 07/20/2020 Office Visit Sports Medicine Max Wright IV, MD [address] [facility] [address] [place] [address] [phone] [facility] - Sports Medicine and Primary Care Start: 07-10-2020 End: 07-10-2020 Hospital Encounter [facility] Periop Comment on above: Hydrocele HYDROCELECTOMY Start: 06-26-2020 End: 06-26-2020 Hospital Encounter [facility] [place] Comment on above: Hydrocele HYDROCELECTOMY Start: 06-26-2020 End: 06-26-2020 Hospital Encounter [facility] [place] Comment on above: Hydrocele HYDROCELECTOMY Start: 06-25-2020 End: 06-25-2020 Appointment [facility] Start: 06-22-2020 End: 06-22-2020 Office Visit 06/22/2020 Office Visit Lab Leonardo Perla MD [address] [facility] [address] [place] [address] [phone] [facility] Start: 06-19-2020 End: 06-19-2020 Office Visit 06/19/2020 Office Visit Pre-Admission Testing Karma Mark, [employer] [address] [place] [address] [phone] [facility] Preadmission Testing Start: 06-14-2020 End: 06-14-2020 Telemedicine 06/14/2020 Telemedicine Pulmonology Michelle Lindsey, [employer] [address] [facility] [address] [place] [address] [phone] [facility] Start: 05-15-2020 End: 05-15-2020 Hospital Encounter [facility] Periop Comment on above: Epididymal cyst BILATERAL SPERMATOCE LECTOMY *CHECK MAP* Start: 05-11-2020 End: 05-11-2020 Office Visit 05/11/2020 Office Visit Lab Leonardo Perla MD [address] [place] [address] [place] [address] [phone] [facility] Start: 2020 Respiratory Syncytial Virus Immunization: Risk, 60-74 Risk, or 75+ (1 - Risk 60-74 years 1-dose series) Respiratory Syncytial Virus Immunization: Risk, 60-74 Risk, or 75+ (1 - Risk 60-74 years 1-dose series) [facility] Start: 04-20-2020 End: 04-20-2020 Hospital Encounter [facility] Per[facility] Comment on above: Epididymal cyst RIGHT EPIDIDYMAL CYS T EXCISION POSSIBLE EPIDYMECTOMY (REMOVAL OF EPIDIDYMIS) *CHECK MAP* Start: 04-16-2020 End: 04-16-2020 Office Visit 04/16/2020 Office Visit Lab Leonardo Perla MD [address] [place] [address] [phone] [facility] Start: 02-07-2020 Influenza vaccination Sequential Influenza Vaccine (#1) [facility] Start: 02-07-2020 Influenza vaccination given Sequential Influenza Vaccine (#1) [facility] Start: 01-17-2020 End: 01-17-2020 Office Visit 01/17/2020 Office Visit General Surgery [facility] [facility] [place] Start: 01-02-2020 End: 01-02-2020 Office Visit [facility] Start: 11-23-2019 End: 11-23-2019 Office Visit 11/23/2019 Office Visit Orthopedic Surgery Karma Mark, AVIONICS SYSTEMS ENGINEER [address] [place] [address] [phone] Teresa Merino III, MD [address] [place] [address] [phone] [facility] Start: 06-08-2019 Tetanus vaccination TETANUS [facility] Start: 02-06-2019 Influenza vaccination given SEQUENTIAL INFLUENZA VACCINE (#1) [facility] Start: 09-23-2018 Screening for malignant neoplasm of colon COLORECTAL CANCER SCREENING DISCUSSION [facility] Start: 06-16-2018 End: 12-14-[address] Angiogram Chest Routine Thoracic aortic aneurysm without rupture (HCC) Expected: 06/16/2018 (Approximate), Expires: 12/14/2018 [facility] Start: 02-06-2018 Influenza vaccination SEQUENTIAL INFLUENZA VACCINE (#1) [facility] Start: 02-05-2018 End: 02-05-2018 Ambulatory 02/05/2018 Office Visit Primary Care Jacob Rivas DO [address] [place] [address] [phone] [facility] Family Medicine Jorge Luis Start: 01-27-2018 End: 01-27-2018 Ambulatory 01/27/2018 Office Visit Neurosurgery Shannan Combs, AVIONICS SYSTEMS ENGINEER [address] [facility] [address] [place] [address] [phone] [facility] Phys[facility] Start: 01-19-2018 End: 01-19-2018 Ambulatory 01/19/2018 Office Visit Transition of Care [facility] Start: 12-29-2017 End: 12-29-2017 Ambulatory 12/29/2017 Office Visit [facility] Start: 02-06-2017 SEQUENTIAL INFLUENZA VACCINE (#1) SEQUENTIAL INFLUENZA VACCINE (#1) [facility] Work Phone: Start: 2010 Administration of herpes zoster vaccine Zoster Vaccines (1 of 2) [facility] Start: 2010 RSV Vaccines (1 - Risk 50-74 years 1-dose series) RSV Vaccines (1 - Risk 50-74 years 1-dose series) [facility] Start: 2010 Screening for malignant neoplasm of colon [facility] Start: 2010 Zoster vaccine hzv live for subcutaneous use ZOSTER (SHINGLES) VACCINE (1 of 2) [facility] Start: 1979 Vaccination for diphtheria, pertussis, and tetanus Tetanus/Diphtheria/Pert ussis (1 - Tdap) [facility] Start: 1978 Hepatitis C antibody, confirmatory test Hepatitis C Screening [facility] Start: 1978 Hepatitis C screening Hepatitis C Screening [facility] Start: 1976 COVID-19 Vaccine (1 of 2) COVID-19 Vaccine (1 of 2) [facility] Start: 1976 COVID-19 Vaccine (1) COVID-19 Vaccine (1) [facility] Start: 1975 HIV screening HIV Screening [facility] Start: 1972 Adolescent depression screening assessment Depression Screening (PHQ9) [facility] Start: 1972 Depression screening using PHQ-9 (Patient Health Questionnaire 9) score [facility] Start: 1966 PNEUMOCOCCAL VACCINE SERIES (1 of 2 - PCV) PNEUMOCOCCAL VACCINE SERIES (1 of 2 - PCV) [facility] Start: 1966 Pneumococcal Vaccine: Ped or At-Risk (1 of 2 - PPSV23) Pneumococcal Vaccine: Ped or At-Risk (1 of 2 - PPSV23) [facility] Start: 1963 History and physical examination, annual for health maintenance Wellness Visit [facility] Start: 1963 PREVENTATIVE HEALTH VISIT PREVENTATIVE HEALTH VISIT [facility] Start: 1961 Ywpbwsb-[id number] vaccination MMR Vaccines (1 of 1 - Standard series) [facility] Start: 1960 Colonoscopy COLONOSCOPY [facility] Work Phone: Start: 1960 Depression screening using PHQ-9 (Patient Health Questionnaire 9) score Depression Screening (PHQ9) [facility] Start: 1960 Hepatitis C antibody, confirmatory test HEPATITIS C SCREENING [facility] Start: 1960 HEPATITIS C SCREENING HEPATITIS C SCREENING [facility] Work Phone: Start: 1960 Prostate specific antigen measurement PSA Level [facility] Start: 1960 Screening colonoscopy COLONOSCOPY [facility] Start: 1960 Screening for malignant neoplasm of colon [facility] Start: 1960 TETANUS EVERY 10 YR TETANUS EVERY 10 YR [facility] Work Phone: Start: 1960 Tetanus vaccination [facility] 12 lead ECG EKG 12-lead ECG STAT 12/13/2020 12:55 PM EDT [facility] End: 04-14-2020 Bacteria identified Aer cx Nom (Sput) Sputum Aerobic Culture Microbiology Routine Once for 1 Occurrences starting 04/14/2020 until 04/14/2020 [facility] Comment on above: Once for 1 Occurrences starting 04/14/20 20 until 04/14/2020 End: 07-17-2020 Bacteria identified Aer cx Nom (Sput) Sputum Aerobic Culture Microbiology Routine Once for 1 Occurrences starting 07/17/2020 until 07/17/2020 [facility] Comment on above: Once for 1 Occurrences starting 07/17/19 21 until 07/17/2020 Bacteria identified Cx Nom (Bld) [facility] End: 05-21-2021 Basic metabolic 2000 panel Basic metabolic panel Lab Routine Hydrocele, unspecified hydrocele type 1 Occurrences starting 05/21/2020 until 05/21/2021 [facility] Comment on above: 1 Occurrences starting 05/21/2020 until 05/21/2021 Basic metabolic 2000 panel Basic metabolic panel Lab Routine Hydrocele, unspecified hydrocele type 06/19/2020 11:32 AM EST [facility] End: 05-21-2021 Complete blood count (hemogram) panel - Blood by Automated count CBC Lab Routine Hydrocele, unspecified hydrocele type 1 Occurrences starting 05/21/2020 until 05/21/2021 [facility] Comment on above: 1 Occurrences starting 05/21/2020 until 05/21/2021 Complete blood count (hemogram) panel - Blood by Automated count CBC Lab Routine Hydrocele, unspecified hydrocele type 06/19/2020 11:32 AM EST [facility] End: 06-15-2021 Complete PFT with Pre and Post Bronchodilator Complete PFT with Pre and Post Bronchodilator PFT Routine Chronic obstructive pulmonary disease, unspecified COPD type (HCC) Tobacco use 1 Occurrences starting 06/15/2020 until 06/15/2021 [facility] Comment on above: 1 Occurrences starting 06/15/2020 until 06/15/2021 End: 06-15-2021 Covid-19/Influenza Order Algorithm : COVID-19 Lab Test Only (OP in UTM) Covid-19/Influenza Order Algorithm : COVID-19 Lab Test Only (OP in UTM) Microbiology Routine Epididymal cyst 1 Occurrences starting 06/15/2020 until 06/15/2021 [facility] Comment on above: 1 Occurrences starting 06/15/2020 until 06/15/2021 CT angiography of pulmonary artery CT Pulmonary Arteries Imaging [facility] 09/21/2020 2:15 PM EDT [facility] End: 10-12-2023 CT of chest [facility] Work Phone: Comment on above: 1 Occurrences starting 10/12/2023 until 10/12/2023 End: 06-15-2021 CT of chest without contrast CT Chest Without Contrast Imaging Routine Chronic obstructive pulmonary disease, unspecified COPD type (HCC) Multifocal pneumonia Tobacco use History of drug use 1 Occurrences starting 06/15/2020 until 06/15/2021 [facility] Comment on above: 1 Occurrences starting 06/15/2020 until 06/15/2021 End: 05-21-2021 INR Coag (PPP) [Relative time] PT/INR Lab Routine Hydrocele, unspecified hydrocele type 1 Occurrences starting 05/21/2020 until 05/21/2021 [facility] Comment on above: 1 Occurrences starting 05/21/2020 until 05/21/2021 INR Coag (PPP) [Rela tive time] PT/INR Lab Routine Hydrocele, unspecified hydrocele type 06/19/2020 11:32 AM EST [facility] Measurement of respi ratory function PFT STANDARD PFT Routine Other emphysema Health care maintenance 10/08/2023 8:57 AM EDT [facility] MR Brain Without Contrast MR Bra in Without Contrast STAT 12/15/2017 8:40 AM EDT [facility] End: 06-26-2022 MRI of lumbar spine without contrast MR Lumbar Spine Without Contrast Imaging Routine Chronic low back pain with left-sided sciatica, unspecified back pain laterality Impaired sensation to light touch Left leg weakness Asymmetrical deep tendon reflexes 1 Occurrences starting 06/25/2021 until 06/26/2022 [facility] Work Phone: Comment on above: 1 Occurrences starting 06/25/2021 until 06/26/2022 Patient Education [facility] Work Phone: Patient referral [facility] Work Phone: Procedure on tissue specimen Tissue Exam Pathology and Cytology Routine Elevated PSA Ordered: 02/01/2025 [facility] Work Phone: Comment on above: Ordered: 02/01/2025 End: 08-27-2026 Prostate specific Ag [Mass/volume] in Serum or Plasma [facility] Work Phone: Comment on above: 6 Occurrences starting 02/27/2025 until 08/27/2026 6 Occurrences starti ng 02/27/2025 until 08/27/2026, 1 completed Prostate specific Ag [Mass/volume] in Serum or Plasma PSA Monitor Lab Routine Prostate cancer (HCC) 02/27/2025 2:57 PM EDT [facility] End: 11-01-2025 Prostate specific Ag panel - Serum or Plasma PSA, Total and Free Lab Routine Elevated PSA 1 Occurrences starting 11/01/2024 until 11/01/2025 [facility] Work Phone: Comment on above: 1 Occurrences starting 11/01/2024 until 11/01/2025 Sciota Draw [facility] End: 12-25-2021 SARS-CoV-2 (COVID-19) RdRp gene [Presence] in Respiratory specimen by MOMO with probe detection COVID-19, Molecular Microbiology Routine Exposure to SARS-associated coronavirus 1 Occurrences starting 12/25/2020 until 12/25/2021 [facility] Comment on above: 1 Occurrences starting 12/25/2020 until 12/25/2021 End: 10-29-2023 Standard ECG [facility] Work Phone: Comment on above: One Time for 1 Occurrences starting 10/07 until 10/29/2023 Ultrasound Duplex Ve nous Legs BILATERAL Ultrasound Duplex Venous Legs BILATERAL [facility] 01/09/2018 9:24 PM EDT [facility] XR Hip Right 2-3 Vie ws (Routine) XR Hip Right 2-3 Views (Routine) Imaging Routine Chronic right hip pain 08/17/2019 12:54 PM EDT [facility] End: 12-29-2018 XR Hips Bilateral With Pelvis 3-4 Views XR Hips Bilateral With Pelvis 3-4 Views Routine Bilateral hip pain 1 Occurrences starting 12/29/2017 until 12/29/2018 [facility] XR Lumbar Spine 2-3 Views (Standard) XR Lumbar Spine 2-3 Views (Standard) Imaging [facility] 10/03/2020 10:04 PM EDT [facility] Immunizations Immunization Date Immunization Notes Care Provider Summer [facility] 05-18-2024 influenza, seasonal, injectable, preservative free Iker Blackwell MD Work Phone: [facility] 05-18-2024 influenza virus vaccine, unspecified formulation Elijah Sanchez MD Work Phone: [facility] 12-07-2020 Pfizer SARS-CoV-2 Vaccination Michelle Duffyterrell FRITZ Work Phone: [facility] 05-25-2019 influenza, injectabl e, quadrivalent, preservative free Latisha Buchanan RN [facility] 05-25-2019 influenza virus vaccine, unspecified formulation Latisha Buchanan RN [facility] Payers Date Payer Category Payer Unknown [id number] 2024 Self-pay 2023 [facility] [place] [id number] 2019 Medicaid 2019 Medicaid [facility] [employer]ICA[employer] COMMUNITY [employer]AN xxxxxxxxx 2019-Present xxxxxxxxx [id number] 2019 Medicaid [id number] 2017 Medicaid [id number] 2017 Unknown 2017 Unknown [id number] 1960 Unknown [id number] 2.16.840.1.568849.3.579.2. 594 1960 Unknown [id number] 2.16.840.1.572457.3.579.2. 594 1960 Unknown [id number] 2.16.840.1.610708.3.579.2. 903 1960 Unknown [id number] 2.16.840.1.534480.3.579.2. 900 1960 Unknown [id number] 2.16.840.1.828696.3.579.2. 903 1960 Unknown [id number] 2.16.840.1.132339.3.579.2. 903 1960 Unknown [id number] 2.16.840.1.415437.3.579.2. 903 1960 Unknown [id number] 2.16.840.1.938274.3.579.2. 903 1960 Unknown [id number] 2.16.840.1.112991.3.579.2. 903 1960 Unknown [id number] 2.16.840.1.843932.3.579.2. 903 1960 Unknown [id number] 2.16.840.1.185988.3.579.2. 903 1960 Unknown [id number] 2.16.840.1.332985.3.579.2. 902 1960 Unknown [id number] 2.16.840.1.548814.3.579.2. 903 1960 Unknown [id number] 2.16.840.1.515683.3.579.2. 903 1960 Unknown [id number] 2.16.840.1.182077.3.579.2. 903 1960 Unknown [id number] 2.16.840.1.740185.3.579.2. 903 1960 Unknown [id number] 2.16.840.1.333344.3.579.2. 903 1960 Unknown [id number] 2.16.840.1.682108.3.579.2. 903 1960 Unknown [id number] 2.16.840.1.608068.3.579.2. 903 1960 Unknown [id number] 2.16.840.1.971607.3.579.2. 903 1960 Unknown [id number] 2.16.840.1.896293.3.579.2. 903 1960 Unknown [id number] 2.16.840.1.905697.3.579.2. 903 1960 Unknown [id number] 2.16.840.1.768780.3.579.2. 903 1960 Unknown [id number] 2.16.840.1.385143.3.579.2. 903 Unknown [id number] 2.16.840.1.094024.3.579.2. 462 Unknown [id number] 2.16.840.1.137206.3.579.2. 462 Unknown [id number] 2.16.840.1.997026.3.579.2. 462 Unknown [id number] 2.16.840.1.905973.3.579.2. 462 Unknown [id number] 2.16.840.1.035901.3.579.2. 462 Unknown [id number] 2.16.840.1.218845.3.579.2. 462 Unknown [id number] 2.16.840.1.301905.3.579.2. 462 Unknown [id number] 2.16.840.1.289462.3.579.2. 462 Unknown [id number] 2.16.840.1.467703.3.579.2. 462 Unknown [id number] 2.16.840.1.315826.3.579.2. 462 Unknown [id number] 2.16.840.1.707311.3.579.2. 462 Unknown [id number] 2.16.840.1.517916.3.579.2. 462 Unknown [id number] 2.16.840.1.535963.3.579.2. 462 Unknown [id number] 2.16.840.1.511451.3.579.2. 462 Unknown [id number] 2.16.840.1.269702.3.579.2. 462 Unknown [id number] 2.840.1.232377.3.579.2. 462 Unknown [id number] 2.16840.1.524635.3.579.2. 462 Unknown [id number] 2.840.1.080661.3.579.2. 462 Unknown [id number] 2.16840.1.065980.3.579.2. 462 Unknown [id number] 2.16840.1.049242.3.579.2. 462 Unknown [id number] 2.16.840.1.986321.3.579.2. 462 Unknown [id number] 2.16.840.1.694076.3.579.2. 462 Unknown [id number] 2.16.840.1.961708.3.579.2. 462 Unknown [id number] 2.16.840.1.975858.3.579.2. 462 Unknown [id number] 2.16.840.1.528506.3.579.2. 462 Unknown [id number] 2.16.840.1.400892.3.579.2. 462 Unknown [id number] 2.16.840.1.359741.3.579.2. 462 Social History Date Type Detail Facility Start: 01-19-1969 End: 10-28-2024 Tobacco smoking status NHIS Current every day smoker [facility] Start: 01-19-1969 History of tobacco use Cigarette Smoker [facility] Work Phone: Start: 12-13-2017 End: 10-31-2023 Cigarettes smoked current (pack per day) - Reported [facility] Start: 1960 Sex Assigned At Not on file [facility] Work Phone: Start: 06-22-2018 End: 01-02-2020 Alcohol intake Current non-drinker of alcohol (finding) [facility] Start: 01-09-2017 Alcohol Comment occ [facility] Start: 07-23-2021 End: 08-19-2021 Exposure to SARS-CoV-2 (event) Not sure [facility] Start: 01-17-2020 End: 10-28-2024 Tobacco use and exposure Never used [facility] Start: 03-02-2020 End: 03-23-2025 Alcohol intake Ex-drinker (finding) [facility] Exposure to SARS-CoV -2 (event) Yes [facility] Start: 06-14-2020 Tobacco Comment Trying to cut back, but [place] was stressful and money problems [facility] Exposure to SARS-CoV -2 (event) Unable to assess [facility] Start: 06-19-2020 Tobacco Comment Trying to cut back, 8 cigs per day [facility] Start: 06-19-2020 Alcohol Comment 1 beer per month [facility] Start: 08-08-2020 End: 08-09-2020 Tobacco smoking status NHIS Former smoker [facility] Start: 06-19-2020 Alcohol Comment 1 beer per month [facility] Start: 06-25-2021 End: 10-28-2024 Tobacco Comment Trying to cut back, 6 cigs per day [facility] Start: 10-05-2023 Alcoholic beverage intake Current drinker of alcohol (finding) [facility] Start: 05-24-2019 End: 10-31-2023 Alcohol Use Disorder Identification Test - Consumption [AUDIT-C] [facility] Frequency of Alcohol Consumption Not on file [facility] Start: 09-23-2017 End: 10-29-2023 Tobacco Comment 50+ pack year history [facility] Start: 09-23-2017 Gender identity Identifies as male gender (finding) [facility] Has the electric, ga s, oil, or water company threatened to shut off services in your home in past 12Mo No [facility] (I/We) worried wheth er (my/our) food would run out before (I/we) got money to buy more. Never true [facility] Start: 12-13-2017 Sexual orientation Heterosexual (finding) [facility] How hard is it for y ou to pay for the very basics like food, housing, medical care, and heating Somewhat hard [facility] (I/We) worried wheth er (my/our) food would run out before (I/we) got money to buy more. Sometimes true [facility] Start: 07-05-2024 End: 02-01-2025 Tobacco smoking status NHIS Current some day smoker [facility] Start: 08-14-2024 End: 09-26-2024 Sex Male (finding) [facility] Start: 1960 Sex Assigned At Male [facility] Medical Equipment Procedure Code Equipment Code Equipment Origin al Text Equipment Identifier Dates Shell 54mm Sz F 4hl Acet Limited Hole Por Osseoti G7 - [id number][facility] Start: 01-28-2021 Screw 6.5 X 30mm Acet Dome Low Profile G7 - [id number] FDA Start: 01-28-2021 Vivacit-E Vitami n E Highly Crosslinked Polytheylene Liner Neutral 40mm/F [id number] Start: 01-28-2021 Stem 14mm Ext Pr imary Tm - [id number]/$ $[id number], 36_imp FDA Start: 01-28-2021 Head 40mm -3.5 F em Biol[employer] Delta Ceramic - [id number]/$ $[id number], 37_imp FDA Start: 01-28-2021 Goals Date Patient Goal Desired Activity /State Functional Status Date Assessment Result Facility 05-23-2024 Functional status Activity Abili ty Unable to Assess [facility] Work Phone: 05-22-2024 Functional status Dangle Feet [facility] Work Phone: 05-18-2024 Functional status Ambulates [facility] Work Phone: Mental Status Date Assessment Result Facility 06-02-2024 Cognitive function Level Of Cons ciousness Appropriate;Drowsy [facility] Work Phone: 05-23-2024 Cognitive function Voice/Name [facility] [facility] Work Phone: 05-18-2024 Cognitive function Appropriate;Cooperativ e [facility] Work Phone: Clinical Notes 09-21-2020 to 04-13-2025 Jihan Rodriguez MD - 04/13/2025 12:28 PM Elijah Colón MD - 03/14/2025 1:59 PM Jihan Michel MD - 03/03/2025 5:15 PM Erik Villa RN - 02/27/2025 1:19 PM EDT Note Date & Type Note Facility 04-13-2025 Note 330 [facility] RADIATION ONCOLOGY [address] [facility] [address] DO Tiffany Bryan MD Praveen Dubey, MD Andrew Freeman, MD David Howell, MD Vijay Kudithipudi, MD Chelsea Miller, MD Michael Siedow, MD ON TREATMENT VISIT NOTE Patient Name: oWlf Turcios Date of : 1960 Date of [...] Days 3 04/13/2025 Unverified data imported from [employer]. May not reflect actual given/total prescription dose. [...] Radiation Therapy - unverified data imported from [employer] Please let me know if you have any questions. Jihan Rodriguez M.D. Radiation Oncology 12:28 PM, 04/13/25 AUTHENTICATED BY JIHAN RODRIGUEZ, ON 04/13/2025 12:37:06 [facility] 04-13-2025 History of Present illness Narrative Images from the original note were not included. [address] [facility] RADIATION ONCOLOGY [address] [facility] [address] DO Tiffany Bryan MD Praveen Dubey, MD [...] Days 3 04/13/2025 Unverified data imported from [facility]. May not reflect actual given/total prescription dose. [...] Radiation Therapy - unverified data imported from [employer] Please let me know if you have any questions. Jihan Rodriguez M.D. Radiation Oncology 12:28 PM, 04/13/25 documented in this encounter [facility] 03-23-2025 Note Chief Complaint Prostate [...] (peptic ulcer disease) Sepsis due to pneumonia ([facility]) 04/2020 Multiple ED visits- last [...] 4, Warm. No clubbing. No cyanosis. Skin: [place], warm and dry. No rashes noted. Psychiatric: [...] supposed to start radiation therapy here in [place] but was told due to his insurance there might be some obstacles I will reach out to Dr. Rodriguez to clarify Plan 1. Follow-up with radiation oncology for his radiation therapy initiation. No further follow-up with me needed. He can see our nurse practitioner down the road should he have any concerns No order (more content not included)... [facility] 03-14-2025 Note Chief complaint: pro [...] Cataract, Chest pain, Cocaine abuse in remission ([facility]), COPD (chronic obstructive pulmonary disease) ([facility]), Edema, Emphysema of lung ([facility]), Essential hypertension (01/10/2017), Hyperlipidemia, Neck pain, Peptic ulcer disease, Prostate cancer ([facility]), PUD (peptic ulcer disease), Sepsis due to pneumonia ([facility]) (04/2020), Testicular abnormality, Thoracic aortic [...] 6 cores (involving 60% of tissue). 45% [place] pattern 4. Cribriform growth pattern identified. Questionnaires: IPSS Questionnaire (AUA-7): Over the past month... 1) How often have you had a sensation of not emptying your bladder completely after you finish urinating? 5 - Almost always 2) How often have you had to urinate again less than two hours after you finished urinating? 5 - Almost always (more content not included)... [facility] 03-14-2025 History of Present illness Narrative [...] Cataract, Chest pain, Cocaine abuse in remission ([facility]), COPD (chronic obstructive pulmonary disease) ([facility]), Edema, Emphysema of lung ([facility]), Essential hypertension (01/10/2017), Hyperlipidemia, Neck pain, Peptic ulcer disease, Prostate cancer (HCC), PUD (peptic ulcer disease), Sepsis due to pneumonia ([facility]) (04/2020), Testicular abnormality, Thoracic aortic [...] Diagnosis Prostate, needle core biopsy: Prostatic adenocarcinoma, [place] grade 3+4=7, WHO grade group 2, involving [...] Elijah Sanchez MD documented in this encounter [facility] 03-03-2025 Note Radiation Oncology N [...] AUTHENTICATED BY JIHAN RODRIGUEZ, ON 03/03/2025 17:23:59 [facility] 03-03-2025 History of Present illness Narrative Radiation [...] 5:15 PM, 03/03/25 documented in this encounter [facility] 02-27-2025 Note [facility] RADIATION ONCOLOGY [address] [facility] [address] Dept: [phone] Dept Loc: [phone] DO Tiffany Bryan MD Praveen Dubey, MD Andrew Freeman, MD David Howell, MD Vijay Kudithipudi, MD Chelsea Miller, MD Michael Siedow, MD Radiation Oncology New Patient Evaluation Patient Name: Wolf Turcios Date of : 1960 Date of Service: 02/27/2025 Diagnosis: Prostate cancer (HCC) [C61] Cancer Staging Prostate cancer ([facility]) Staging form: Prostate, AJCC 8th [...] constipation. Endocrine: Ne (more content not included)... [facility] 02-27-2025 History of Present illness Narrative Images from the original note were not included. [facility] RADIATION ONCOLOGY [address] [facility] [address] Dept: [phone] Dept Loc: [phone] DO Tiffany Bryan MD Praveen Dubey, MD Andrew Freeman, MD David Howell, MD Vijay Kudithipudi, MD Chelsea Miller, MD Michael Siedow, MD Radiation Oncology New Patient Evaluation Patient Name: Wolf Turcios Date of : 1960 Date of Service: 02/27/2025 Diagnosis: Prostate cancer (HCC) [C61] Cancer Staging Prostate cancer ([facility]) Staging form: Prostate, AJCC 8th [...] emphysema No date: Cocaine abuse in remission ([facility]) Comment: None since 2015- now on suboxone No date: COPD (chronic obstructive pulmonary disease) ([facility]) Comment: Multiple ED visits- last 08/2020 No date: Edema Comment: BLE + ED visit 07/25/20 No date: Emphysema of lung ([facility]) Comment: Severe 01/10/2017: Essential hypertension No date: Hyperlipidemia No date: Neck pain No date: Peptic ulcer disease No date: Prostate cancer ([facility]) No date: PUD (peptic ulcer disease) 04/2020: Sepsis due to pneumonia ([facility]) Comment: Multiple ED visits- last [...] nodules. Note: This dictation was generated using [employer] voice recognition software. Please excuse any grammatical [...] patient is nervous/anxious. documented in this encounter [facility] 02-14-2025 Note I discussed risks, b enefits and alternatives of telemedicine consultation with the patient (and any accompanying persons) including the risks that the patient's personal health details and medical records will be discussed over interactive video/audio/telecommunication technology, may be recorded, and that there are inherent diagnostic limitations compared to otix-gr-iavv evaluations. They elected to proceed with the [...] Cataract, Chest pain, Cocaine abuse in remission ([facility]), COPD (chronic obstructive pulmonary disease) ([facility]), Edema, Emphysema of lung ([facility]), Essential hypertension (01/10/2017), Hyperlipidemia, Neck pain, Peptic ulcer disease, PUD (peptic ulcer disease), Sepsis due to pneumonia ([facility]) (04/2020), Thoracic aortic aneurysm, TIA [...] 45% Maryse pattern (more content not included)... [facility] 02-14-2025 History of Present illness Narrative I discussed risks, benefits and alternatives of telemedicine consultation with the patient (and any accompanying persons) including the risks that the patient s personal health details and medical records will be discussed over interactive video/audio/telecommunication technology, may be recorded, and that there are inherent diagnostic limitations compared to jmni-zl-hhxz evaluations. They elected to proceed with the [...] Cataract, Chest pain, Cocaine abuse in remission ([facility]), COPD (chronic obstructive pulmonary disease) ([facility]), Edema, Emphysema of lung ([facility]), Essential hypertension (01/10/2017), Hyperlipidemia, Neck pain, Peptic ulcer disease, PUD (peptic ulcer disease), Sepsis due to pneumonia ([facility]) (04/2020), Thoracic aortic aneurysm, TIA [...] Diagnosis Prostate, needle core biopsy: Prostatic adenocarcinoma, [place] grade 3+4=7, WHO grade group 2, involving [...] male with newly diagnosed localized prostate cancer. [place] Grade Group: 2 PSA: 8.8 ng/ml Pathology [...] in treating prostate cancer. We reviewed the [facility] Preoperative Nomogram. 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 He [...] Elijah Sanchez MD documented in this encounter [facility] 02-01-2025 History of Present illness [...] week follow up. documented in this encounter [facility] 02-01-2025 Note Date of Procedure: [...] AUTHENTICATED BY ELIJAH SANCHEZ, ON 02/01/2025 11:49:47 [facility] 11-25-2024 Note I received a [...] the above plan. Digna Wooten MD, MPH [facility] - Urology [address] [place] [address], [address] [place], [place] AUTHENTICATED BY JIHAN WOOTEN, ON 11/25/2024 15:41:20 [facility] 11-25-2024 History of Present illness Narrative [...] the above plan. Digna Wooten MD, MPH [facility] - Urology [address] [place] [address], [address] [place], [place] documented in this encounter [facility] 11-11-2024 Note Reason for visit: [...] Elevated PSA 11/11/2024 COPD with acute exacerbation ([facility]) 10/25/2023 Acute on chronic respiratory failure ([facility]) 08/19/2021 COPD exacerbation ([facility]) 05/24/2021 Status post right hip replacement 01/28/2021 Illiterate 01/22/2021 Opioid dependence ([facility]) 08/09/2020 Hydrocele 06/14/2020 Thoracic aortic aneurysm, without rupture 01/01/2018 COPD (chronic obstructive pulmonary disease) ([facility]) 12/29/2017 Bilateral hip pain 12/29/2017 Tobacco use 12/29/2017 Essential hypertension 01/10/2017 Past Medical History: Diagnosis Date Arthritis Asthma Cataract Bilat- s/p Right eye laser Chest pain +ED 09/21/20- Troponin and Chest CT-Neg for PE showed pneuomia and emphysema Cocaine abuse in remission ([facility]) None since 2015- now on suboxone COPD (chronic obstructive pulmonary disease) ([facility]) Multiple ED visits- last 08/2020 Edema BLE + ED visit 07/25/20 Emphysema of lung ([facility]) Severe Essential hypertension 01/10/2017 Hyperlipidemia Neck pain Peptic ulcer disease PUD (peptic ulcer disease) Sepsis due to pneumonia ([facility]) 04/2020 Multiple ED visits- last 08/2020. Saw Pulm Dr Hollis while IP 04/20/20 Thoracic aortic aneurysm States d/t drug overdose TIA (transient ischemic attack) Tobacco abuse Past Surgical History: Procedure Laterality Date ARTHROPLASTY HIP TOTAL Right 01/28/2021 Procedure: RIGHT TOTAL HIP ARTHROPLASTY; Surgeon: Teresa Terry MD; Location: [facility] OR; Service: Orthopedic EYE SURGERY Right Laser [...] of viscous lidoca (more content not included)... [facility] 11-11-2024 History of Present illness Narrative [...] Elevated PSA 11/11/2024 COPD with acute exacerbation ([facility]) 10/25/2023 Acute on chronic respiratory failure ([facility]) 08/19/2021 COPD exacerbation ([facility]) 05/24/2021 Status post right hip replacement 01/28/2021 Illiterate 01/22/2021 Opioid dependence ([facility]) 08/09/2020 Hydrocele 06/14/2020 Thoracic aortic aneurysm, without rupture 01/01/2018 COPD (chronic obstructive pulmonary disease) ([facility]) 12/29/2017 Bilateral hip pain 12/29/2017 Tobacco use 12/29/2017 Essential hypertension 01/10/2017 Past Medical History: Diagnosis Date Arthritis Asthma Cataract Bilat- s/p Right eye laser Chest pain +ED 09/21/20- Troponin and Chest CT-Neg for PE showed pneuomia and emphysema Cocaine abuse in remission ([facility]) None since 2015- now on suboxone COPD (chronic obstructive pulmonary disease) ([facility]) Multiple ED visits- last 08/2020 Edema BLE + ED visit 07/25/20 Emphysema of lung ([facility]) Severe Essential hypertension 01/10/2017 Hyperlipidemia Neck pain Peptic ulcer disease PUD (peptic ulcer disease) Sepsis due to pneumonia ([facility]) 04/2020 Multiple ED visits- last 08/2020. Saw Pulm Dr Hollis while IP 04/20/20 Thoracic aortic aneurysm States d/t drug overdose TIA (transient ischemic attack) Tobacco abuse Past Surgical History: Procedure Laterality Date ARTHROPLASTY HIP TOTAL Right 01/28/2021 Procedure: RIGHT TOTAL HIP ARTHROPLASTY; Surgeon: Teresa Terry MD; Location: [facility] OR; Service: Orthopedic EYE SURGERY Right Laser [...] and draped in a sterile fashion. A 16-Brazilian flexible cystoscope was inserted per urethra and [...] PA-C for this. Digna Wooten MD, MPH [facility] - Reconstructive Urology [address], [address] [place], [place] [1] Current Outpatient Medications Medication Sig [...] Resource Strain: Medium Risk (10/30/2023) Received from [facility] Overall Financial Resource Strain (CARDIA) Difficulty [...] Sodium Chlorine mL size: 500 Lot number: [id number] Exp date: 06/06/2027 [facility]: 4841-2673-68 Review of Systems HENT: Positive for congestion. [...] and are negative. documented in this encounter [facility] 10-28-2024 Note Patient Name: Randall Turcios MR #: [id number] : 1960 Physicians: Ivonne Henry MD (Referring) [...] pneuomia and emphysema Cocaine abuse in remission ([facility]) None since 2015- now on suboxone COPD (chronic obstructive pulmonary disease) ([facility]) Multiple ED visits- last 08/2020 Edema BLE + ED visit 07/25/20 Emphysema of lung ([facility]) Severe Essential hypertension 01/10/2017 Hyperlipidemia Neck pain Peptic ulcer disease PUD (peptic ulcer disease) Sepsis due to pneumonia ([facility]) 04/2020 Multiple ED visits- last 08/2020. Saw Pulm Dr Hollis while IP 04/20/20 Thoracic aortic aneurysm States d/t drug overdose TIA (transient ischemic attack) Tobacco abuse Past Surgical History: Procedure Laterality Date ARTHROPLASTY HIP TOTAL Right 01/28/2021 Procedure: RIGHT TOTAL HIP ARTHROPLASTY; Surgeon: Teresa Terry MD; Location: [facility] OR; Service: Orthopedic EYE SURGERY Right Laser [...] . lisinopriL (PRINI (more content not included)... [facility] 10-28-2024 History of Present illness Narrative Images from the original note were not included. Patient Name: Wolf Turcios MR #: [id number] : 1960 Physicians: Ivonne Henry MD (Referring) [...] on suboxone COPD (chronic obstructive pulmonary disease) ([facility]) Multiple ED visits- last 08/2020 Edema BLE + ED visit 07/25/20 Emphysema of lung ([facility]) Severe Essential hypertension 01/10/2017 Hyperlipidemia Neck pain Peptic ulcer disease PUD (peptic ulcer disease) Sepsis due to pneumonia ([facility]) 04/2020 Multiple ED visits- last 08/2020. Saw Pulm Dr Hollis while IP 04/20/20 Thoracic aortic aneurysm States d/t drug overdose TIA (transient ischemic attack) Tobacco abuse Past Surgical History: Procedure Laterality Date ARTHROPLASTY HIP TOTAL Right 01/28/2021 Procedure: RIGHT TOTAL HIP ARTHROPLASTY; Surgeon: Teresa Terry MD; Location: [facility] OR; Service: Orthopedic EYE SURGERY Right Laser [...] examination or procedure in which a trained marketing secretary will be available to enhance the patient's comfort, safety, privacy, security and/or dignity. The trained marketing secretary will fusion juncture grinder a location where he or she can observe what is going on and assist as needed. Following the above discussion, patient Decline marketing secretary for exam. Vital Signs: BP (!) 135/91 Pulse (!) 109 Temp 99.9 F (37.7 C) GENERAL: Well appearing. No acute distress. EYES: No changes in vision, no blurry vision EARS, NOSE, MOUTH, THROAT: mucous memebranes moist, trachea midline CARDIOVASCULAR/PULMONARY: unlabored breathing without shortness of breath. ABDOMEN: Soft, nondistended, nontender. BACK: No CVA tenderness. (patient declined marketing secretary): Penis is circumcised with an orthotopic meatus. [...] The above 18 analytes were performed by [address],[place] [address] ALT Date Value Ref Range Status 08/20/2021 [...] as testing and labs in preparation for cstw-ec-cjxe visit with the patient today. During this [...] any questions or concerns. Kvng Escoto PA-C [facility] Urology - [facility] Office: [phone] [1] Social History Socioeconomic History Marital status: [...] Resource Strain: Medium Risk (10/30/2023) Received from [facility] Overall Financial Resource Strain (CARDIA) Difficulty [...] and are negative. documented in this encounter [facility] 09-22-2024 Radiology Diagnostic study note [facility] Imaging Services [address] [place] [address] Testicular with Arterial Flow MR#: [id number] Acct: [id number] Name: WOLF TURCIOS Jr. Rep #: [id number] : 1960 M 64 From: Martir Mc MD PCP: Dr. Iker Blackwell MD Status: REG CL I Study:Testicular with Arterial Flow Date of E xam: 09/21/24 Exam# [id number] Ordering Dr: Merly Blackwell MD PROCEDURE: TESTICULAR [...] bilateral arterial and venous flow seen. Bilateral obxd-wg-aknpworg appearing hydroceles are noted measuring approximately 4.3 x 5.3 x 2 cm on the right and 5.3 x 3.3 x 2.7 cm on the left. US/Testicular with Arterial Flow IMPRESSION: The testicles appear symmetric and isoechoic with bilateral arterial and venous flow seen. Bilateral ixyd-fu-putpxlxj appearing hydroceles are noted measuring approximately 4.3 x 5.3 x 2 cm on the right and 5.3 x 3.3 x 2.7 cm on the left. Reading Location: [facility] CC: Dr. Iker Blackwell MD ~ [employer]: Signed [facility] 06-02-2024 Evaluation note Diagnosis Onset Date Resolution Esophageal foreign body acute June 02, 2 024 6:58pm [facility] Work Phone: 1(524) 858-504212-16-2024 [facility] Medical Records Department [address] [place] [address] Discharge Summary 05/23/24 1027 MR#: [id number] Acct: [id number] Name: WOLF TURCIOS Jr. Rep #: [id number] : 1960 64 From: Elijah Guerrero DO PCP: Dr. Iker Blackwell MD Status:ADM MEGAN Location: [place] [address] Providers Date of Admission: 05/20/24 Primary Care [...] status. Reports that he recently moved from [place] to [place] because of concerns with substance abuse around [...] discharged. Me was were inquiring about some jail facility information. I told him that we [...] 05/17/24 dextromethorphan-guaifenesin 30 mg-600 mg tablet extended iypmyus24 hr (Mucus DM) 1 tab PO Q12H [...] oxygen Yes 05/23/24 08:43 (more content not included)...[facility]12-11-2024 [facility] Medical Records Department [address] [place] [address] Discharge Summary 05/18/24 0937 MR#: [id number] Acct: [id number] Name: WOLF TURCIOS Jr. Rep #: [id number] : 1960 64 From: Elijah Guerrero DO PCP: Dr. Iker Blackwell MD Status:ADM IN Location: [place] [address]1 Providers Date of Admission: 05/17/24 Primary Care [...] 05/17/24 dextromethorphan-guaifenesin 30 mg-600 mg tablet extended qicmxau97 hr (Mucinex DM) 1 tab PO BID [...] % (Auto) 65.6, Lymph % (Auto) 19.6, [place] % (Auto) 8.1, Eos % (Auto) 5.5 [...] 258 H, Calcium 9.2 (more content not included)...[facility]12-10-2024 Evaluation note* Diagnosis Onset Date Resolution Status Admit Date Hypoxemia acute May 17, 2024 5:16pm COPD exacerbation resolved Decembe r 2023 5:16pm Hypoxemia acute May 20, 2024 10:03pm Tobacco abuse acute May 202023 10:03pm COPD exacerbation resolved Decembe r 2023 10:03pm Esophageal foreign body acute D ecember 2023 6:58pm [facility] Work Phone: 1(669) 588-943906-03-2024 Telephone encounter Note* Telephone Encounter - Kiersten Cerna RN - 11/09/2023 10:43 AM EDT Called patient and provided recommendations per PCP's note. Patient expressed understanding with noquestions at this time. [facility]06-03-2024 Miscellaneous Notes* Telephone Encounter - Kiersten [...] someone. Please advise. [facility] Note* Telephone Encounter - Iovnne Henry MD - 11/08/2023 11:23 PM EDT Recommend patient call his insurance to determine which hospital system will accept his insurance. After determining the hospital system, he will need to choose a location and we can fax over a consult to that specific office so that he can get scheduled. [facility]06-02-2024 Miscellaneous Notes* Telephone Encounter - Ivonne [...] someone. Please advise. [facility] Tele[facility] encounter Note* Telephone Encounter - [...] in to see someone. Please advise. [facility]05-29-2024 History of Present illness Narrative* Teresa Gay MD, PhD - 11/04/2023 1:30 PM EDT Date of Encounter: 11/04/2023 Chief Complaint The patient is a 63 y.o. male who presents today for Follow-up (Pt states he's here for a hospital follow up for bronchitis day before yesterday). Hospital Follow Up PCP: Ivonne Henry Admitted: [facility] 10/28-10/30, discharged/transferred to [facility] per patient preference and discharged on 10/31 [...] morning as needed. 90 tablet 3 Nystatin 115048 UNIT/ML oral suspension Swish and swallow 10 [...] PhD Resident, Department of Internal Medicine [facility] * Zi Alfaro MD - 11/04/2023 1:30 PM EDT Attending Addendum (GC): This patient was discussed, examined, and evaluated with the resident physician on the day of the encounter. I have independently confirmed essential components of the medical history and the physical examination qywp-ek-wmxx with the patient. I agree with the [...] initiate pulm rehab referral. Zi Alfaro MD [employer] [facility] [employer] Division of General Internal [...] to his room. [facility] Instructions* Patient Instructions* Teresa Gay MD, [...] you to pulmonary rehab today. Please call [phone] to schedule your appointment with Pulmonary rehabilitation. -we will also refer you to pulmonology for help with considering additional options or better ways to control your COPD. Please call [phone] to schedule your appointment with Pulmonology. -if your symptoms get any worse, you develop fevers or difficulty breathing that doesn't respond toyour inhalers you should call us right away or go to the emergency room [facility] History of Present illness Narrative* Keyana Ibarra RN - 11/03/2023 9:00 AM EDT Transitional Care Management Keyana Ibarra RN 11/03/2023 2:07 PM Transitional Care Management Note (Initial) Discharge [facility] and date - [facility] 10/30 then transferred to [facility] and discharged on 10/31 Contact made [...] Trelegy equivalent. He returned to his [facility]. Due to insurance concerns, the patient preferred transfer to outside facility which was accommodated. [place]: Pt did not meet criteria for home [...] patient may benefit, route to PCP and manager care management) - no Name of patient's home health [...] at this time [facility] NoteHMS PROGRESS NOTE Assessment and Plan Wolf Turcios is a 63 y.o. male patient of Ivonne Henry MD with history of COPD on chronic as needed oxygen, hypertension who presented to [facility] on 10/31/2023 with respiratory failure, COPD flare. Acute on chronic hypoxic respiratory failure On 2L O2 NC prn at home Requiring 3L O2 NC on admission, weaned to room air Home O2 eval completed and sats > 91% with ambulation on room air Continue home O2 prn AECOPD Admitted (10/24-10/26) at [facility] and then readmitted to [facility] (10/29) for the same Transferred to [facility] due to insurance Afebrile, no leukocytosis CXR at [facility] 10/28 concerning for fibrotic process Continue Azithro course to complete 5 days Prednisone resumed and discharged home on taper Pt got nebulizer supplies prescribed after hospitalization at [facility], not able to get new nebulizer (pt [...] affect AUTHENTICATED BY PABLO DAVILA, ON 11/01/2023 11:41:12[facility]05-25-2024 NoteHMS HISTORY AND PHYSICAL -- [facility] Patient Name: Wolf Turcios : 1960 MR #: [id number] Admit Date: 10/31/2023 Physicians: Ivonne Henry MD (Family); Loreto Walsh MD (Referring) Wolf Turcios is a 63 y.o. male patient of Ivonne Henry MD with history of COPD on chronic as needed oxygen, hypertension who presented to [facility] on 10/31/2023 with respiratory failure, COPD flare. Acute hypoxic, hypercapnic respiratory failure AECOPD At baseline only uses oxygen at home as needed up to 2L (pt believes canister is compromised and requesting new) Recently discharged from [facility] on 10/26 on room air Represented to OSH with acute dyspnea and was found to be hypoxic requiring up to 3L NC Possible non-compliance with home inhalers CXR at [facility] 10/28 concerning for fibrotic process. No dense [...] as needed oxygen, hypertension who presented to [facility] on 10/31/2023 with respiratory failure, COPD [...] pneuomia and emphysema Cocaine abuse in remission ([facility]) None since 2015- now on suboxone COPD (chronic obstructive pulmonary disease) ([facility]) Multiple ED visits- last 08/2020 Edema BLE + ED visit 07/25/20 Emphysema of lung ([facility]) Severe Essential hypertension 01/10/2017 Hyperlipidemia Neck pain Peptic ulcer disease PUD (peptic ulcer disease) Sepsis due to pneumonia ([facility]) 04/2020 Multiple ED visits- last 08/2020. Saw Pulm Dr Hollis while IP 04/20/20 Thoracic aortic aneurysm ([facility]) States d/t drug overdose TIA (transient ischemic attack) Tobacco abuse Past Surgical History Past Surgical History: Procedure Laterality Date ARTHROPLASTY HIP TOTAL Right 01/28/2021 Procedure: RIGHT TOTAL HIP ARTHROPLASTY; Surgeon: Teresa Terry MD; Location: [facility] OR; Service: Orthopedic EYE SURGERY Right Laser [...] reviewed the patient's allergie (more content not included)...[facility]05-25-2024 Nurse Note* Nursing Notes - Austin Castro RN - 10/31/2023 11:36 AM EDT After review of the AVS by bedside RN, patient verbalized understanding and denies any questions orconcerns related to medications or follow up plans. PIV remained due to transfer to another inpatient hospital. Patient reports all personal belongings accounted for at the time of discharge. [facility] for discharge to [facility]. Austin Castro RN [facility]05-25-2024 Miscellaneous Notes* Nursing Notes - Austin Castro RN - 10/31/2023 11:36 AM EDT After review of the AVS by bedside RN, patient verbalized understanding and denies any questions orconcerns related to medications or follow up plans. PIV remained due to transfer to another inpatient hospital. Patient reports all personal belongings accounted for at the time of discharge. [facility] for discharge to [facility]. Austin Castro RN * Plan [...] Provided report to Jaylin (Transfer Nurse) RN [phone]. The patient will be transferred to [facility] to Medical Surgical Orthopedic Unit (Room 3001). Faxed over PREM and AVS to [phone] * Plan of Care - Betty Wellington [...] administered prn Tylenol and Flexiril. Notified on-call [facility] 3 Physician (Dr. Flynn). No new orders at this time. RAY Hernández (on-coming RN) also made aware. * Nursing Notes - Lawrence Pérez RN - 10/30/2023 11:00 PM EDT Received discharge order from covering physician. Called medical transportation to set up. Providedreport and transport tentatively scheduled for 0800. Charge nurse made aware. Spoke with RAY Mosqueda (charge nurse) at [facility] Med-Surg Ortho Unit to make aware of pending transport time. Confirmed with RAY Mosqueda that patient will be admitted to [facility] Med-Surg Ortho room 3001. * Nursing Notes - Austin Castro RN - 10/30/2023 7:35 PM EDT Bonnie (Transfer Nurse) RN from [facility] reported the patient's room is now available. The patient will be transferred to [facility] to Medical Surgical Orthopedic Unit (Room 3001). This nurse provided report. Bonnie BELL requested two face sheets to be sent with the patient and face sheets, AVS, PREM, and any imaging to be faxed to [phone]. This worker informed Lawrence BELL (9ER) of [...] Laterality: N/A; Surgeon: Jihan Olivarez MD; Location: [facility] MAIN OR FINGER SURGERY 2008 SKIN GRAFT [...] by mouth Every morning as needed. Nystatin 003657 UNIT/ML oral suspension 10/29/2023 Yes Yes Sig: [...] and hunger/thirst. Pt was provided food from [employer], and admission was completed. On admission to [facility], from ED a dual RN initial assessment of skin condition was performed by Ruth Calvert RN and Jamal Diggs RN. Skin Assessment: Skin within defined limits:Yes Farooq Score: 21 LDA Added:No Ruth Calvert RN documented in this encounterDay[facility] Hospital course Narrative* Broderick Tejada MD [...] during his recent hospital stay at [facility]. As you may know, Wolf Turcios is [...] equivalent. He returned to his home [place] [place]. Due to insurance concerns, the patient preferred transfer to outside facility which was accommodated. Upon discharge the patient's code was Full Code Please see the remainder of this document for relevant data from this admission as well as the patient's discharge instructions and follow-up appointments.. An electronic copy of the patient's records can be obtained via [email or web address] at [email or web address] It has been my pleasure participating in this patient's care. Please contact me with any questions or concerns regarding his hospital stay. The total time of discharge was 35 minutes. Sincerely, Broderick Tejada MD Dictated under attending physician Loreto Walsh MD Division of Hospital Medicine p: [phone] f: [phone] Relevant Data from this Admission Vitals BP: [...] by mouth Every morning as needed. Nystatin [id number] UNIT/ML oral suspension Commonly known as: MYCOSTATIN omeprazole [address] capsule Commonly known as: PRILOSEC Potassium chloride 20 MEQ tab ER tablet Commonly known as: K-DUR prednisoLONE-Moxifloxacin 1-0.5 % SOLN Tamsulosin HCl 0.4 MG CAPS Commonly known as: FLOMAX Trelegy Ellipta 100-62.5-25 MCG/ACT AEPB inhaler Generic drug: xmnhyvbskuu-xzgsjdfjl-Oautgk Inhale 1 puff daily. Ventolin HFA 108 [...] as documented. Patient will be transferring to [facility] for continued care for his COPD exacerbation due to insurance concerns. Together with the resident, we spent ~35 minutes with discharge management on the day of discharge. Loreto Walsh MD Hospital Medicine Pager: #[phone] * Zohaib Flynn MD - 10/30/2023 10:33 [...] during his recent hospital stay at [facility]. The following describes his hospital course. Primary [...] during his recent hospital stay at [facility]. As you may know, Wolf Turcios is [...] Flynn MD, MS Internal Medicine-Pediatrics Resident, PGY1 [facility] Dictated under attending physician Loreto Walsh MD Division of Hospital Medicine p: [phone] f: [phone] CONSULTS DURING ADMISSION: IP CONSULT TO PHYSICAL [...] reports please contact Medical Information Management @ [phone] LABS AT TIME OF DISCHARGE: Lab Results [...] PATIENT'S MEDICAL HOME AT DISCHARGE: Ivonne Henry [address] [place] [id number] MEDICATIONS: Medication List for when you go [...] on October 30, 2023 9:24 AM Nystatin [id number] UNIT/ML oral suspension Swish and swallow 10 [...] inhaler Inhale 1 puff daily. Generic drug: atchedvsvli-zkhkupqeh-Bvgksz Ventolin HFA 108 (90 Base) MCG/ACT AERS [...] Care - General Internal Medicine Outpatient Care [facility] Arrive at: Arrive to 3rd Floor Registration Desk [phone] Associated attestation - Loreto Walsh MD - 10/31/2023 11:25 AM EDT Please see attestation on dc summary from 10/30. Pt did not discharge on 10/29 [facility] Plan of care note* Plan of Care - Austin Castro RN - 10/31/2023 10:14 AM EDT Problem: Adult Inpatient Plan of Care Goal: Readiness for Transition of Care Outcome: Not Progressing Problem: Adult Inpatient Plan of Care Goal: Plan of Care Review Outcome: Progressing Flowsheets (Taken 10/31/2023 1014) Progress: no change Plan of Care Reviewed With: patient [facility]05-25-[facility] Nurse Note* Nursing Notes - Austin Castro RN - 10/31/2023 7:19 AM EDT Provided report to Jaylin (Transfer Nurse) RN [phone]. The patient will be transferred to [facility] to Medical Surgical Orthopedic Unit (Room 3001). Faxed over PREM and AVS to [phone] [facility]05-[facility] Plan of care note* Plan of [...] and safety during daily routine. Outcome: Progressing [facility]05-25-[facility] Nurse Note* Nursing Notes - Lawrence Pérez RN - 10/31/2023 12:10 AM EDT Patient reports having 6/10 intermittent midsternal chest pain that is exacerbated with coughing. Obtained vital signs and administered prn Tylenol and Flexiril. Notified on-call [facility] Med 3 Physician (Dr. Flynn). No new orders at this time. RAY Hernández (on-coming RN) also made aware. [facility]05-24-[facility] Nurse Note* Nursing Notes - Lawrence Pérez RN - 10/30/2023 11:00 PM EDT Received discharge order from covering physician. Called medical transportation to set up. Providedreport and transport tentatively scheduled for 0800. Charge nurse made aware. Spoke with RAY Mosqueda (charge nurse) at [facility] Med-Surg Ortho Unit to make aware of pending transport time. Confirmed with RAY Mosqueda that patient will be admitted to [facility] Med-Surg Ortho room 3001. [facility]05-[facility] Nurse Note* Nursing Notes - Austin Castro RN - 10/30/2023 7:35 PM EDT Bonnie (Transfer Nurse) RN from [facility] reported the patient's room is now available. The patient will be transferred to [facility] to Medical Surgical Orthopedic Unit (Room 3001). This nurse provided report. Bonnie BELL requested two face sheets to be sent with the patient and face sheets, AVS, PREM, and any imaging to be faxed to [phone]. This worker informed Lawrence BELL (ER) of this information. [facility]05-24-[facility]24 Hospital Discharge instructions* Discharge Instructions* Brdoerick Tejada MD - 10/30/2023 4:43 PM EDT [...] sent through Care Everywhere. * COPD: Exacerbation ([place]) documented in this encounterOS[facility] History of Present illness Narrative* Jen Burr, EMAIL DESIGNER - 10/30/2023 2:48 PM EDT Psychosocial Assessment Per chart review, patient is a 63 year old male admitted for COPD exacerbation. Treatment Plant Mechanic met with patient to introduce self, explain [...] income-on SSDI Linked with a SW though [employer] Employment Financial Employed?: Disabled Employment/Financial Concerns: no Employment/Financial Comments: Pt has limited income but is ustilizing community resources for basic needs. Source Of Income: disability Financial Concerns: other (see comments) (Limited financial income but is able to provide for needssuch as food, cell-phone and transportation through [employer].) Financial Resource Strain: Financial Resource Strain: Medium Risk (10/30/2023) Overall Financial Resource Strain (CARDIA) Difficulty of Paying Living Expenses: Somewhat hard Pt has SSDI and is linked with [employer] Housing Stability: Housing Stability: Unknown (10/30/2023) Housing [...] reported he is working with SW with [employer] who has assisted in completing housing applications [...] Needs: No Transportation Needs (10/26/2023) Received from [facility] - Transportation Lack of Transportation (Medical): No Lack of Transportation (Non-Medical): No Cab service through [employer]. Utilities: Social Determinants of Health Utilities: Not At Risk (10/26/2023) Received from [facility] Utilities Threatened with loss of utilities: No N/A Abuse Screen Abuse Screen Do You Feel Unsafe at Home, Work or School?: no Cultural, Spiritual, Faith Practices Cultural or muslim practices that may impact discharge planning and/or [...] know if he was being transferred to [facility]. SW updated pt that CM is working on the transfer but [facility] has not confirmed they have an open bed. SW updated pt that [employer] [facility] within pt insurance network and can assist in getting the pt oxygen. Basic Needs: Pt resides with a friend. No safety concerns. Pt reported he is on SSDI with limited income. No financial concerns as pt is receiving housing, food and transportation assistance from [employer] Medical: Pt needs oxygen. Requesting transfer to [facility] due to pt insurance not being in network with [facility]. CLAUDIO Intervention(s) and Recommendation(s): SW provided verbal support and emotional support. Pt reported he misses his dog. SW will continue to follow for discharge planning and care coordination. Jen HUERTAS Director Of Hemophilia Available through secure chat * Lauren Rasheed RN - 10/30/2023 12:11 PM EDT Transition Planning Met with patient to discuss his insurance is out of network. He stated he prefers to transfer to a hospital who is in network with his insurance. Called [facility] transfer center [phone] and they are looking for a bed. Ambulance form completed and is at [facility] desk. Messaged [facility] to see if they accept patient's insurance. They do. [facility] [address] [place] [address] Addendum: 4:17 pm called [facility]. Spoke with Accepted to Jorge Luis. Dr. Davila. Accepting.RN station number provided. They will call when they have a bed available. Then can call [facility] to request an ambulance. Will continue to follow for discharge planning and care coordination. Lina March RN, MSSA, CROZER OPERATOR-S, ACM-SW R 9 E Clinical Aluminum Siding Mechanic * Lauren Rasheed RN - 10/30/2023 10:43 AM EDT Discharge Planning Patient Assessment Admission Assessment Patient Assessment Completed: Initial Anticipated discharge disposition: Home Reason for Admission: COPD exacerbation Is the patient able to participate in the assessment?: Yes Information source: Patient, Review of Medical Record Information Source Name/Contact: Wolf Turcios [phone] Demographics Verified and Updated: Yes Has the [...] Yes Name and Contact information: Day Turcios [phone] Would you like to add additional adult [...] Is the patient from a facility or alf?: No Patient lives with: Friend(s) Living Environment: [...] Is the patient on Anticoagulation? : No [facility] [address], [address] [place] [address] Police Booking Officer Does the patient or telecommunications sales representative express financial concerns? : Yes Financial concern type: Housing Referrals to address financial concerns: Social Work Employed?: Disabled Coping/Stress Concerns about patient s coping and stress?: No Concerns about patient s caregiver s coping and stress?: No Identified Caregiver Values and Beliefs Cultural or muslim practices that may impact discharge planning and/or [...] with follow up. Call[facility] [phone] To see if they are the providers. . Confirmed he owes a balance of about $100. He will need to make payment arrangements or shown that he has always Medicaid before they will deliver. He a walk of life and new oxygen orders. But it transferred over to house carpenter so they are no longer billing his insurance so patient may select a new provider. Will continue to follow for discharge planning and care coordination. Lina March RN, [facility], CROZER OPERATOR-S, ACM-SW R 9 E Clinical Aluminum Siding Mechanic * Broderick Tejada MD - 10/30/2023 9:01 AM EDT Internal Medicine Daily Progress Note Patient: Wolf Turcios, 1960, [id number] Physician: Broderick Tejada MD, PGY1, Pager #[phone], Gen Med 3 service Subjective/Interval History: Transferred [...] status is full Broderick Tejada MD [facility] Anesthesiology, PGY-1 10/30/2023 9:01 AM Pager #[phone] Associated attestation - Loreto Walsh MD - [...] pulm rehab and IP smoking cessation consult. Basket Grader on continued use of/compliance with scheduled home Trelegy Ellipta at discharge Loreto Walsh MD Hospital Medicine Pager: #[phone] * [facility] - 10/30/2023 8:31 AM EDT Acute Physical Therapy Evaluation Prior Gross Functional Mobility: independent Current AM-PAC score(s): CURRENT AM-PAC Mobility Raw Score: 18 Based on the above AM-PAC score(s) and PT clinical judgment, patient is a good candidate for discharge to Detention Facility (Hopeful progression to home) Barriers to [...] Proprioception Proprioception: intact Mobility Assessment: Rolling/Turning Mobility [place] Level: Rolling/Turning: not tested Scooting Bridging Mobility [place] Level: Scooting/Bridging: not tested Supine to Sit Mobility [place] Level: Supine->Sit: supervision Bed Features/Set-up: Supine->Sit: Head [...] positioning on EOB. Sit to Supine Mobility [place] Level: Sit->Supine: not tested Balance: Sitting Balance [...] safety. Transfer Assessment: Sit to Stand Transfer [place] Level: Sit->Stand: contact guard assist Assistive Device: Sit->Stand: gait belt Skilled Rationale: Positioning, Verbal cues, Facilitate anterior shift, Full extension to upright positioning/posture, Upright gaze/neck extension, Technique of activity, Cues for increased safety Skilled Intervention/Details: Sit->Stand: x1 from EOB. No overt LOB. Cueing given for technique,upright posture, and safety. Stand to Sit Transfer [place] Level: Stand->Sit: contact guard assist Assistive Device: Stand->Sit: gait belt, armed chair Skilled Rationale: Positioning, Sequencing, Hand placement, Verbal cues, Controlled descent for sitting, Technique of activity, Cues for increased safety Skilled Intervention/Details: Stand->Sit: x1 to chair. No overt LOB. Cueing given for eccentric control on descent, hand placement, and placing legs against chair before sitting. Bed-Chair Transfer [place] Level: Bed<->Chair: not tested Gait/Functional Mobility: Gait Assessment [place] Level: Gait: contact guard assist Assistive Device: [...] currently uses wheelchair?: No Stairs: Stairs Assessment [place] Level: Stair Negotiation: not tested Outcome Score(s): CURRENT [facility] Basic Mobility Inpatient Short Form Turning over [...] railin - A Lot of Assistance CURRENT [facility] Mobility Raw Score: 18 CURRENT [facility] Mobility Functional Limitation: 46.58% Impaired in Basic [...] u david/dynamic surfaces, Limited ability to complete clinical unit educator/maintenance, Limited standing tolerance, Decreased functional mobility. Current [...] judgements. Nancy De Leon PT License # [id number] Pager [phone] * Alyce Barahona OT - 10/30/2023 8:31 AM EDT Acute Occupational Therapy Evaluation Prior Gross Functional Mobility: independent Current AM-PAC score(s): CURRENT AM-PAC Activity Raw Score: 20 Based on the above AM-PAC score(s) and OT clinical judgment, discharge destination recommendation is: Detention Facility (with hopeful progression) Barriers to discharge [...] Edema: Mobility Assessment: Supine to Sit Mobility [place] Level: Supine->Sit: supervision Bed Features/Set-up: Supine->Sit: Head of bed elevated, Use of bed rail Skilled Rationale: Positioning, Sequencing, Hand placement, Verbal cues, Tactile cues Transfer Assessment: Sit to Stand Transfer [place] Level: Sit->Stand: contact guard assist Assistive Device: Sit->Stand: gait belt Skilled Rationale: Positioning, Sequencing, Hand placement, Verbal cues, Tactile cues, Cues for increased safety, Energy conservation, Breathing strategies Stand to Sit Transfer [place] Level: Stand->Sit: contact guard assist Assistive Device: Stand->Sit: gait belt Skilled Rationale: Positioning, Sequencing, Hand placement, Verbal cues, Tactile cues, Energy conservation, Cues for increased safety, Breathing strategies Functional Mobility: Functional Mobility [place] Level: Functional Mobility/Gait: contact guard assist Assistive Device: Functional Mobility/Gait: gait belt Functional Mobility Distance: Distance needed to access restroom Functional Mobility Deficits: Activity tolerance, Shortness of breath, Follow safety/precautions Outcome Score(s): CURRENT [facility] Daily Activity Inpatient Short Form Putting on/Taking Off Lower Body Clothin - A Little Assistance Bathin - A Little Assistance Toiletin - A Little Assistance Putting on/Taking Off Upper Body Clothin - No Assistance Groomin - A Little Assistance Eatin - No Assistance CURRENT [facility] Activity Raw Score: 20 CURRENT -[facility] Activity Functional Limitation/Modifier: 38.32% Currently Impaired [...] Laterality: N/A; Surgeon: Jihan Olivarez MD; Location: [facility] MAIN OR FINGER SURGERY 2007 SKIN GRAFT [...] Therapy Discharge Summary. documented in this encounterOS[facility] Plan of care note* Plan of [...] Laterality: N/A; Surgeon: Jihan Olivarez MD; Location: [facility] MAIN OR FINGER SURGERY 2007 SKIN GRAFT [...] by mouth Every morning as needed. Nystatin [id number] UNIT/ML oral suspension 10/29/2023 Yes Yes Sig: [...] by Lucy Hoyt RCP 10/30/2023 9:13 AM [facility]05-[facility] Plan of care note* Plan of [...] safely navigate home and community. Outcome: Ongoing [facility]05-24-2024 Plan of care note* Plan of [...] and safety during daily routine. Outcome: Ongoing [facility]05-23-2024 Nurse Note* Nursing Notes - Ruth [...] and hunger/thirst. Pt was provided food from [employer], and admission was completed. On admission to [facility], from ED a dual RN initial assessment of skin condition was performed by Ruth Calvert RN and Jamal Diggs RN. Skin Assessment: Skin within defined limits:Yes Farooq Score: 21 LDA Added:No Ruth Calvert RN [facility]05-23-2024 History and physical note* Mirta Warren MD - 10/29/2023 8:21 PM EDT Images from the original note were not included. Internal Medicine Admission History & Physical Patient: Wolf Turcios, 1960, [id number] Physician: Mirta Warren MD, PGY1, Pager #[phone], [facility] service Date of face to face patient encounter: 10/29/2023. Chief Complaint: COPD exacerbation History Of Present Illness: Wolf Turcios is a 63 y.o. male with a history of COPD, HTN, and TIA who presents with dyspnea. Patient reports recent discharge from [facility] for similar presentation. He feels as if [...] 1L of fluids. He was admitted to [facility] for further respiratory support. Medical/Surgical History: Past Medical History: Diagnosis Date Cocaine use inhaled crack cocaine COPD (chronic obstructive pulmonary disease) Essential hypertension 01/10/2017 Sciatica TIA (transient ischemic attack) 01/2017 Tobacco use Past Surgical History: Procedure Laterality Date LAPAROTOMY EXPLORATORY N/A 10/12/2017 Laterality: N/A; Surgeon: Jihan Olivarez MD; Location: [facility] MAIN OR FINGER SURGERY 2007 [...] by mouth Every morning as needed. Nystatin 462075 UNIT/ML oral suspension Sig: Swish and swallow [...] erythema Skin: No jaundice or rash Neuro: engineering technologist 3-7, 9-11 intact and equal. Strength grossly [...] DVT prophylaxis with lovenox Disposition: Admit to [facility] 4 Code status is full Staffed with Gilbert Paul MD Signed, Mirta Warren MD PGY-1, Internal Medicine-Pediatrics [facility] Pager #[phone] Associated attestation - Gilbert Paul MD - [...] of breath. He was recently discharged from [facility] followin admission for acute exacerbation of COPD. 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 Internal Medicine Admission History & Physical Patient: Wolf Turcios, 1960, [id number] Physician: Mirta Warren MD, PGY1, Pager #[phone], [facility] service Date of face to face patient encounter: 10/29/2023. Chief Complaint: COPD exacerbation History Of Present Illness: Wolf Turcios is a 63 y.o. male with a history of COPD, HTN, and TIA who presents with dyspnea. Patient reports recent discharge from [facility] for similar presentation. He feels as if [...] 1L of fluids. He was admitted to [facility] for further respiratory support. Medical/Surgical History: Past Medical History: Diagnosis Date Cocaine use inhaled crack cocaine COPD (chronic obstructive pulmonary disease) Essential hypertension 01/10/2017 Sciatica TIA (transient ischemic attack) 01/2017 Tobacco use Past Surgical History: Procedure Laterality Date LAPAROTOMY EXPLORATORY N/A 10/12/2017 Laterality: N/A; Surgeon: Jihan Olivarez MD; [facility] [...] by mouth Every morning as needed. Nystatin 400261 UNIT/ML oral suspension Sig: Swish and swallow [...] erythema Skin: No jaundice or rash Neuro: engineering technologist 3-7, 9-11 intact and equal. Strength grossly [...] DVT prophylaxis with lovenox Disposition: Admit to [facility] 4 Code status is full Staffed with Gilbert Paul MD Signed, Mirta Warren MD PGY-1, Internal Medicine-Pediatrics [facility] Pager #[phone] Associated attestation - Gilbert Paul MD - [...] of breath. He was recently discharged from [facility] followin admission for acute exacerbation of COPD. 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/compliance with scheduled home Trelegy Ellipta at discharge Principal Problem: Chronic obstructive pulmonary disease with acute exacerbation Active Problems: PUD (peptic ulcer disease) BPH (benign prostatic hyperplasia) Essential hypertension History of substance use disorder History of TIA (transient ischemic attack) Date of service: 10/29/2023 Gilbert Paul MD documented in this encounterDayton [facility] Emergency department Note* Sharla Schulz RN - 10/29/2023 6:07 PM EDT Bed: E018 Expected date: Expected time: Means of arrival: Comments: 84 [facility]05-23-2024 Emergency department Note* Sharla Schulz RN [...] COPD exacerbation - was in obs in [place] 10/24-10/26 for COPD exacerbation. Now worsening. [facility] obs notes reviewed by me. Decreased breath [...] with dyspnea. Patient reports recent discharge from [facility] for similar presentation. Feels as if he [...] Laterality: N/A; Surgeon: Jihan Olivarez MD; Location: [facility] MAIN OR FINGER SURGERY 2007 SKIN GRAFT [...] morning as needed. 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 Precontemplative regarding quitting tobacco/cocaine. Social Determinants of Health Financial Resource Strain: Not on file Food Insecurity: No Food Insecurity (10/26/2023) Received from [facility] Hunger Vital Sign Worried About Running Out of Food in the Last Year: Never true Ran Out of Food in the Last Year: Never true Transportation Needs: No Transportation Needs (10/26/2023) Received from [facility] PRAPARE - Transportation Lack of Transportation (Medical): No Lack of Transportation (Non-Medical): No Physical Activity: Not on file Stress: Not on file Social Connections: Not on file Intimate Partner Violence: Not At Risk (10/26/2023) Received from [facility] Humiliation, Afraid, Rape, and Kick questionnaire Fear of Current or Ex-Partner: No Emotionally Abused: No Physically Abused: No Sexually Abused: No Housing Stability: Low Risk (10/26/2023) Received from [facility] Housing Stability Vital Sign Unable [...] decision making process. This note dictated using Noblivity voice recognition software. Attempts at proofreading were [...] reports baseline is 95-96% [facility] Emergency department Note* Reji Al [...] COPD exacerbation - was in obs in [place] 10/24-10/26 for COPD exacerbation. Now worsening. [facility] obs notes reviewed by me. Decreased breath [...] severe COPD exacerbation. Reji Al MD 10/29/23 0508 [facility] Work Phone: [phone] 106-751805-23-2024 Physician Emergency department Note* Elijah Kennedy MD - 10/29/2023 4:03 PM EDT EMERGENCY DEPARTMENT CHIEF COMPLAINT Shortness of Breath HPI Wolf Turcios is a 63 y.o. male with PMHx of COPD, HTN, TIA who presents with dyspnea. Patient reports recent discharge from [facility] for similar presentation. Feels as if he [...] Laterality: N/A; Surgeon: Jihan Olivarez MD; Location: [facility] MAIN OR FINGER SURGERY 2007 SKIN GRAFT [...] morning as needed. 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 Precontemplative regarding quitting tobacco/cocaine. Social Determinants of Health Financial Resource Strain: Not on file Food Insecurity: No Food Insecurity (10/26/2023) Received from [facility] Hunger Vital Sign Worried About Running Out of Food in the Last Year: Never true Ran Out of Food in the Last Year: Never true Transportation Needs: No Transportation Needs (10/26/2023) Received from [facility] PRAPARE - Transportation Lack of Transportation (Medical): No Lack of Transportation (Non-Medical): No Physical Activity: Not on file Stress: Not on file Social Connections: Not on file Intimate Partner Violence: Not At Risk (10/26/2023) Received from [facility] Humiliation, Afraid, Rape, and Kick questionnaire Fear of Current or Ex-Partner: No Emotionally Abused: No Physically Abused: No Sexually Abused: No Housing Stability: Low Risk (10/26/2023) Received from [facility] Housing Stability Vital Sign Unable [...] decision making process. This note dictated using Noblivity voice recognition software. Attempts at proofreading were made, but errors may occasionally still occur. Elijah Kennedy MD Resident 10/29/232002 [facility] Work Phone: 1(801) 716-519105-23-2024 NoteAcute Coronary Syndrome (ACS): Initial Evaluation and Management: [email or web address] [email or web address] [facility]05-23-2024 Emergency department Note* Maral Curiel RN - 10/29/2023 10:26 AM EDT Pt arrives via EMS from home for SOB, hx COPD. Pt received duoneb en route, reported improvement insx. Pt uses oxygen prn at home, SpO2 90-91% on RA in triage, reports baseline is 95-96% [facility]05-22-2024 Telephone encounter Note* Telephone Encounter - Amber Damon LPN - 10/28/2023 9:23 AM EDT Submitted PA using [employer] insurance card of file, PA came back as not needed. Called pt, he stated he has [employer] insurance, I did ask for his insurance info (PCN, BIN, GRP) in order to complete new PA. Pt requested I call back to get requested info. [facility]05-22-2024 Miscellaneous Notes* Telephone Encounter - Amber [...] have they tried/failed: n/a documented in this encounterDay[facility]05-[facility]24 Telephone encounter Note* Telephone Encounter - Bekah Lopez - 10/28/2023 8:08 AM EDT Patient called in and wanted to check status of Prior Auth [facility]05-21-2024 History of Present illness Narrative* Alfreda [...] 10/27/2023 10:00 AM EDT Josephine Jacobs CNP [facility] Hospitalists Progress Note Patient Name: Wolf [...] 10/26/2023 10:00 AM EDT Josephine Jacobs CNP [facility] Hospitalists Progress Note Patient Name: Wolf [...] Outside Records [] Family documented in this [id number] Hospital Discharge instructions * Discharge Instructions* Josephine Jacobs CNP - 10/27/2023 1:59 PM EDT * Discharge Instr - Care Coordination* Alfreda Wall RN - 10/26/2023 2:15 PM EDT Please call [facility] #[phone] to provide home nebulizer equipment. * Attachments The following attachments cannot be sent through Care Everywhere. * COPD: Exacerbation ([place]) * COPD: Triggers: General Info ([place]) documented in this [id number] Miscellaneous Notes* Significant Event - Josephine Jacobs CNP - 10/27/2023 1:00 PM EDT Messaged bedside RN and CM via OptuLink chat. Patient has not utilized any of [...] Jacobs CNP - 10/27/2023 7:01 AM EDT [id number] ENCOUNTER FOR HOME MEDICAL EQUIPMENT PATIENT: Wolf Turcios : 1960 Statement of Care: I certify that Wolf Turcios is under my care and that I, a Nurse Practitioner, had a adqe-db-igro encounter with this patient yesterday to evaluate and discuss the need for home medical equipment. I certify that based on the findings of this evaluation, which included but was not limited to the wsod-tq-krvt requirements, the following home medical equipment is [...] All other components within normal limits Narrative: [facility] has implemented the [...] All other components within normal limits Narrative: [facility] has implemented the eGFR calculation approach that does not have a coefficient for race that conforms to the NKF-ASN Task Force Recommendations. OBTAIN VENOUS BLOOD GASES AND PERFORM CBC AND DIFFERENTIAL Narrative: The following orders were created for panel order CBC w/ Diff. Procedure Abnormality Status --------- ------ CBC Auto Differential[[id number]] Final result Please view results for these [...] of complications. . . documented in this [id number] Note* Significant Event - Josephine Jacobs CNP - 10/27/2023 1:00 PM EDT Messaged bedside RN and CM via [employer] chat. Patient has not utilized any of [...] already been sent to patient's preferred pharmacy. [id number] Jovani Jacobs CNP [facility] Hospitalists Progress Note Patient Name: Wolf [...] Family AUTHENTICATED BY JOSEPHINE JACOBS, ON 10/27/2023 12:01:02[facility]05-21-2024 Note* Significant Event - Josephine Jacobs, [facility] - 10/27/2023 7:01 AM EDT [id number] ENCOUNTER FOR HOME MEDICAL EQUIPMENT PATIENT: Wolf Turcios : 1960 Statement of Care: I certify that Wolf Turcios is under my care and that I, a Nurse Practitioner, had a fwgy-by-jscz encounter with this patient yesterday to evaluate and discuss the need for home medical equipment. I certify that based on the findings of this evaluation, which included but was not limited to the mwfx-ln-knwo requirements, the following home medical equipment is [...] Signed by: Josephine Jacobs CNP on 10/27/2023 [id number] Note* Quick Note - Lisa Barnett CNP [...] appropriately, moves extremities x 4 in bed [facility] Work Phone: 1(193) 762-753905-20-2024 Consult note* Adriel Corona LSW - 10/26/2023 [...] Chart reviewed. No therapy orders atthis time. BULK DELIVERY DRIVER met with pt at bedside and introduced role in dc planning. Demographic information including PCP and insurance coverage. PCP listed on facesheet. Pt reports he currently staying lives a friend in a private residence. Pt reports friends and family as support. Pt reports receiving servi luke such as meals on wheels from [employer]Pt reports hx of rehab experience. Pt has no DME atbaseline. Pt's states he is able to call himself at dc. Pt is medication adherent. He denies falls in the past 6 months. Pt denies cultural/spirituality beliefs. Pt reports family are aware of his wishes. Pt reports hx of constant chronic left leg pains and rated pain as 9. BULK DELIVERY DRIVER will follow. Assessment and Background Information: Living [...] routine activities due to chronic pain:: Yes [id number] Consult note* Adriel Corona LSW - 10/26/2023 [...] Chart reviewed. No therapy orders atthis time. BULK DELIVERY DRIVER met with pt at bedside and introduced role in dc planning. Demographic information including PCP and insurance coverage. PCP listed on facesheet. Pt reports he currently staying lives a friend in a private residence. Pt reports friends and family as support. Pt reports receiving servi luke such as meals on wheels from [employer]Pt reports hx of rehab experience. Pt has no DME atbaseline. Pt's states he is able to call himself at mo. Pt is medication adherent. He denies falls in the past 6 months. Pt denies cultural/spirituality beliefs. Pt reports family are aware of his wishes. Pt reports hx of constant chronic left leg pains and rated pain as 9. BULK DELIVERY DRIVER will follow. Assessment and Background Information: Living [...] to chronic pain:: Yes documented in this [id number] NoteKelgabino Jacobs, LAM [facility] Hospitalists Discharge Summary Wolf Turcios Admit [...] Trelegy Ellipta 100-62.5-25 mcg Dsdv Generic drug: bdmpwicijtu-egdiubmgx-nbzwzzyt Inhale 1 puff daily . Quantity: 28 [...] Ox3. Answers questions a (more content not included)...[facility]05-20-2024 Hospital course Narrative* Josephine Jacobs CNP - 10/26/2023 12:26 PM EDT Images from the original note were not included. Josephine Jacobs CNP [facility] Hospitalists Discharge Summary Wolf Turcios Admit [...] Trelegy Ellipta 100-62.5-25 mcg Dsdv Generic drug: racygshwtjl-nseklgjrt-ejqulszz Inhale 1 puff daily . Quantity: 28 [...] on Discharge: 38 mins documented in this [id number] Jovani Jacobs CNP [facility] Hospitalists Progress Note Patient Name: Wolf [...] AUTHENTICATED BY JOSEPHINE JACOBS, ON 10/27/2023 07:38:18[facility]05-20-2024 Note* Plan of Care - Harinder Gil RN - 10/26/2023 12:16 AM EDT Plan of care initiated [id number] Emergency department Note* Leigh Reyes RN - 10/25/2023 9:47 PM EDT Patient resting comfortably with eyes open at this time. Patient updated on plan of care, restroom help and PO intake offered at this time. Patient denies additional needs. Call light in reach, bed in low position. [id number] Emergency department Note* Leigh Reyes RN - 10/25/2023 9:47 PM EDT Patient resting comfortably with eyes open at this time. Patient updated on plan of care, restroom help and PO intake offered at this time. Patient denies additional needs. Call light in reach, bed in low position. * Flores Almanza - 10/25/2023 9:15 PM EDT [facility] to write orders for ken [phone] [...] ED attending, Dr. Cabral. Will admit to [facility]. Please see hospital attending physician note for further information and final disposition of this patient. Impressions: 1. COPD exacerbation (HCC) 2. Increased sputum production 3. Tachypnea MDM Data ED Course as of 10/25/232114 Sun October 25, 20232112 Spoke with [facility], agreeable for admission [RO] ED Course User Index [RO] Mirta Christopher PA-C [facility] Data: External Documents/Labs Reviewed, ECG interpreted, X-ray interpretation reviewed, Discussed with consultants/staff, and Shared decision making utilized Previous Records Reviewed . . Labs Reviewed BASIC METABOLIC PANEL - Abnormal; Notable for the following components: Result Value Glucose 117 (*) Calcium 8.2 (*) All other components within normal limits Narrative: [facility] has implemented the eGFR calculation approach that [...] All other components within normal limits Narrative: [facility] has implemented the eGFR calculation approach that does not have a coefficient for race that conforms to the NKF-ASN Task Force Recommendations. OBTAIN VENOUS BLOOD GASES AND PERFORM CBC AND DIFFERENTIAL Narrative: The following orders were created for panel order CBC w/ Diff. Procedure Abnormality Status --------- ------ CBC Auto Differential[[id number]] Final result Please view results for these [...] pneuomia and emphysema Cocaine abuse in remission ([facility]) None since 2015- now on suboxone COPD (chronic obstructive pulmonary disease) ([facility]) Multiple ED visits- last 08/2020 Edema BLE + ED visit 07/25/20 Emphysema of lung ([facility]) Severe Essential hypertension 01/10/2017 Hyperlipidemia Neck pain Peptic ulcer disease PUD (peptic ulcer disease) Sepsis due to pneumonia ([facility]) 04/2020 Multiple ED visits- last 08/2020. Saw Pulm Dr Hollis while IP 04/20/20 Thoracic aortic aneurysm ([facility]) States d/t drug overdose TIA (transient ischemic attack) Tobacco abuse Past Surgical History Past Surgical History: Procedure Laterality Date ARTHROPLASTY HIP TOTAL Right 01/28/2021 Procedure: RIGHT TOTAL HIP ARTHROPLASTY; Surgeon: Teresa Terry MD; Location: [facility] OR; Service: Orthopedic EYE SURGERY Right Laser [...] expedite correspondence this note was generated by IntervalZero voice recognition software. This note was partially [...] of arrival: Comments: M16/fiers documented in this [id number] History and physical note* Barbara Layton DO - 10/25/2023 9:19 PM EDT Barbara Layton DO [facility] Hospitalists History and Physical Patient Name: [...] on suboxone COPD (chronic obstructive pulmonary disease) ([facility]) Multiple ED visits- last 08/2020 Edema BLE + ED visit 07/25/20 Emphysema of lung ([facility]) Severe Essential hypertension 01/10/2017 Hyperlipidemia Neck pain Peptic ulcer disease PUD (peptic ulcer disease) Sepsis due to pneumonia ([facility]) 04/2020 Multiple ED visits- last 08/2020. Saw Pulm Dr Hollis while IP 04/20/20 Thoracic aortic aneurysm ([facility]) States d/t drug overdose TIA (transient ischemic attack) Tobacco abuse Past Surgical History: Procedure Laterality Date ARTHROPLASTY HIP TOTAL Right 01/28/2021 Procedure: RIGHT TOTAL HIP ARTHROPLASTY; Surgeon: Teresa Terry MD; Location: [facility] OR; Service: Orthopedic EYE SURGERY Right Laser [...] see assessment and plan for further details. [facility] Work Phone: 1(976) 756-543005-19-2024 NoteEmma Marjan Layton DO [facility] Hospitalists History and Physical Patient Name: [...] pneuomia and emphysema Cocaine abuse in remission ([facility]) None since 2015- now on suboxone COPD (chronic obstructive pulmonary disease) ([facility]) Multiple ED visits- last 08/2020 Edema BLE + ED visit 07/25/20 Emphysema of lung ([facility]) Severe Essential hypertension 01/10/2017 Hyperlipidemia Neck pain Peptic ulcer disease PUD (peptic ulcer disease) Sepsis due to pneumonia ([facility]) 04/2020 Multiple ED visits- last 08/2020. Saw Pulm Dr Hollis while IP 04/20/20 Thoracic aortic aneurysm ([facility]) States d/t drug overdose TIA (transient ischemic attack) Tobacco abuse Past Surgical History: Procedure Laterality Date ARTHROPLASTY HIP TOTAL Right 01/28/2021 Procedure: RIGHT TOTAL HIP ARTHROPLASTY; Surgeon: Teresa Terry MD; Location: [facility] OR; Service: Orthopedic EYE SURGERY Right Laser [...] [15-32] 20 BP: (10 (more content not included)...[facility]05-19-2024 History and physical note* Barbara Layton DO - 10/25/2023 9:19 PM EDT Barbara Layton DO [facility] Hospitalists History and Physical Patient Name: [...] pneuomia and emphysema Cocaine abuse in remission ([facility]) None since 2015- now on suboxone COPD (chronic obstructive pulmonary disease) ([facility]) Multiple ED visits- last 08/2020 Edema BLE + ED visit 07/25/20 Emphysema of lung ([facility]) Severe Essential hypertension 01/10/2017 Hyperlipidemia Neck pain Peptic ulcer disease PUD (peptic ulcer disease) Sepsis due to pneumonia ([facility]) 04/2020 Multiple ED visits- last 08/2020. Saw Pulm Dr Hollis while IP 04/20/20 Thoracic aortic aneurysm ([facility]) States d/t drug overdose TIA (transient ischemic attack) Tobacco abuse Past Surgical History: Procedure Laterality Date ARTHROPLASTY HIP TOTAL Right 01/28/2021 Procedure: RIGHT TOTAL HIP ARTHROPLASTY; Surgeon: Teresa Terry MD; Location: [facility] OR; Service: Orthopedic EYE SURGERY Right Laser [...] plan for further details. documented in this [id number] Emergency department Note* Flores Almanza - 10/25/2023 9:15 PM EDT copc to write orders for ken [phone] [id number] Note* ED Attestation Note - Alyce Cabral [...] All other components within normal limits Narrative: [facility] has implemented the eGFR calculation approach that does not have a coefficient for race that conforms to the NKF-ASN Task Force Recommendations. POC VBG LAB(EPOC) - RALS - Abnormal; Notable for the following components: pCO2, Edison 53.5 (*) pO2, [place] 58 (*) O2 Sat, [place] 87.3 (*) Hemoglobin, Calculated 18.0 (*) Glucose 120 (*) Ionized Calcium 4.2 (*) All other components within normal limits Narrative: [facility] has implemented the eGFR calculation approach that does not have a coefficient for race that conforms to the NKF-ASN Task Force Recommendations. OBTAIN VENOUS BLOOD GASES AND PERFORM CBC AND DIFFERENTIAL Narrative: The following orders were created for panel order CBC w/ Diff. Procedure Abnormality Status --------- ------ CBC Auto Differential[[id number]] Final result Please view results for these [...] acknowledged its risk of complications. . . [facility] Work Phone: 1(840) 812-347005-19-2024 Emergency department Note* Leigh Reyes RN - 10/25/2023 7:24 PM EDT This RN just took over care from previous shift.Patient resting comfortably with eyes open at this time. Patient updated on plan of care, restroom help offered at this time. Patient denies additionalneeds. Call light in reach, bed in low position. [id number] Physician Emergency department Note* Mirta Christopher PA-C [...] ED attending, Dr. Cabral. Will admit to [facility]. Please see hospital attending physician note for further information and final disposition of this patient. Impressions: 1. COPD exacerbation (HCC) 2. Increased sputum production 3. Tachypnea MDM Data ED Course as of 10/25/232114 Sun October 25, 20232112 Spoke with [facility], agreeable for admission [RO] ED Course User Index [RO] Mirta Christopher PA-C [facility] Data: External Documents/Labs Reviewed, ECG interpreted, X-ray interpretation reviewed, Discussed with consultants/staff, and Shared decision making utilized Previous Records Reviewed . . Labs Reviewed BASIC METABOLIC PANEL - Abnormal; Notable for the following components: Result Value Glucose 117 (*) Calcium 8.2 (*) All other components within normal limits Narrative: [facility] has implemented the eGFR calculation approach that [...] All other components within normal limits Narrative: [facility] has implemented the eGFR calculation approach that does not have a coefficient for race that conforms to the NKF-ASN Task Force Recommendations. OBTAIN VENOUS BLOOD GASES AND PERFORM CBC AND DIFFERENTIAL Narrative: The following orders were created for panel order CBC w/ Diff. Procedure Abnormality Status --------- ------ CBC Auto Differential[[id number]] Final result Please view results for these [...] pneuomia and emphysema Cocaine abuse in remission ([facility]) None since 2015- now on suboxone COPD (chronic obstructive pulmonary disease) ([facility]) Multiple ED visits- last 08/2020 Edema BLE + ED visit 07/25/20 Emphysema of lung ([facility]) Severe Essential hypertension 01/10/2017 Hyperlipidemia Neck pain Peptic ulcer disease PUD (peptic ulcer disease) Sepsis due to pneumonia ([facility]) 04/2020 Multiple ED visits- last 08/2020. Saw Pulm Dr Hollis while IP 04/20/20 Thoracic aortic aneurysm ([facility]) States d/t drug overdose TIA (transient ischemic attack) Tobacco abuse Past Surgical History Past Surgical History: Procedure Laterality Date ARTHROPLASTY HIP TOTAL Right 01/28/2021 Procedure: RIGHT TOTAL HIP ARTHROPLASTY; Surgeon: Teresa Terry MD; Location: [facility] OR; Service: Orthopedic EYE SURGERY Right Laser [...] expedite correspondence this note was generated by [employer] voice recognition software. This note was partially created using voice recognition software and is inherently subject to errors including those of syntax and sound-alike substitutions which may escape proofreading. In such instances, original meaning may be extrapolated by contextual derivation. Mirta Christopher PA-C 10/25/232114 [facility] Work Phone: [phone] Emergency department Note* Janusz Parmar RN - 10/25/2023 6:24 PM EDT Pt presents to ED for c.o SOB x2-3 days. Pt states symptoms unrelieved with inhaler and breathing treatments at home. Pt arrives to ED via EMS with duoneb in progress. EMS states on arrival pt had diminished breath sounds bilaterally with rhonchi and SpO2 at 86%. [id number] Emergency department Note* Christina Obregon RN - 10/25/2023 6:22 PM EDT Bed: 49 Expected date: Expected time: Means of arrival: Comments: M16/fiers [id number] Telephone encounter Note* Telephone Encounter - [place] [...] needs a PA Prescription Insurance Name: - [employer] Insurance phone number: - n/a Any alternative medications covered on plan? (this is for covered alternative or not covered): -n/a If patient is calling: What other medications have they tried/failed: n/a [facility]05-14-2024 Telephone encounter Note* Telephone Encounter - Kiersten Cerna RN - 10/20/2023 11:15 AM EDT Called and let patient know that since he has established with an eye doctor that we will leave further prescriptions to them. Advised that if he needs any refills for eye drops he should reach out to their office. Patient expressed understanding and agreement. [facility]05-14-2024 Miscellaneous Notes* Telephone Encounter - Kiersten [...] had an eye exam completed yesterday at [facility]. Patient think they [...] ophtho evaluation. * Addendum Note - Ivonne Henyr MD - 10/19/2023 6:27 PM EDTAddended by: [...] settling. He saidthat he just moved from [place] to [place] and needs to have his medications sent to a pharmacy in [place]. * Telephone Encounter - Kiersten Cerna RN [...] that referral. Thank you! [facility] Tele[facility] encounter Note* Telephone Encounter - Flores Bruce MD - 10/20/2023 11:06 AM EDT Covering for Dr. Henry. So seems like patient has established with eye doctor. Will leave further prescriptions to them. - Dionte Martin [facility] Work Phone: [phone] 592-942605-14-2024 Telephone encounter Note* Telephone Encounter - Kiersten [...] had an eye exam completed yesterday at [facility]. Patient think they might take over prescribing the eye drops if it is necessary. [facility]* Addendum Note - Ivonne Henry MD - 10/20/2023 10:26 AM EDTAddended by: IVONNE HENRY on: 10/20/2023 10:26 AM Modules accepted: [facility]* Addendum Note - Ivonne Henry MD - 10/20/2023 10:26 AM EDTAddended by: IVONNE HENRY on: 10/20/2023 10:26 AM Modules accepted: [facility]* Addendum Note - Ivonne Henry MD - 10/20/2023 10:26 AM EDTAddended by: IVONNE HENRY on: 10/20/2023 10:26 AM Modules accepted: [facility]* Addendum Note - Ivonne Henry MD - 10/20/2023 10:26 AM EDTAddended by: IVONNE HENRY on: 10/20/2023 10:26 AM Modules accepted: Orders [facility]05-[facility] Telephone encounter Note* Telephone Encounter - [...] continuing as a bridge until ophtho evaluation. [facility]05-13-[facility] Note* Addendum Note - Ivonne Henry MD - 10/19/2023 6:27 PM EDTAddended by: IVONNE HENRY on: 10/19/2023 06:27 PM Modules accepted: Orders [facility]05-13-[facility] Note* Addendum Note - Ivonne Henry MD - 10/19/2023 6:27 PM EDTAddended by: IVONNE HENRY on: 10/19/2023 06:27 PM Modules accepted: [facility]* Addendum Note - Ivonne Henry MD - 10/19/2023 6:27 PM EDTAddended by: IVONNE HENRY on: 10/19/2023 06:27 PM Modules accepted: [facility]* Addendum Note - Ivonne Henry MD - 10/19/2023 6:27 PM EDTAddended by: IVONNE HENRY on: 10/19/2023 06:27 PM Modules accepted: Orders [facility]05-[facility] Note* Addendum Note - Ivonne Henry MD - 10/19/2023 6:27 PM EDTAddended by: IVONNE HENRY on: 10/19/2023 06:27 PM Modules accepted: Orders [facility]05-[facility] Note* Addendum Note - Ivonne Henry MD - 10/19/2023 6:27 PM EDTAddended by: IVONNE HENRY on: 10/19/2023 06:27 PM Modules accepted: Orders [facility]05-13-[facility] Miscellaneous Notes* Addendum Note - Ivonne [...] settling. He saidthat he just moved from [place] to [place] and needs to have his medications sent to a pharmacy in [place]. * Telephone Encounter - Kiersten Cerna RN [...] that referral. Thank you! documented in this encounterDayton [facility]05[facility] Note* Addendum Note - Kiersten Cerna RN - 10/19/2023 4:54 PM EDTAddended by: KIERSTEN CERNA on: 10/19/2023 04:54 PM Modules accepted: [facility]* Addendum Note - Kiersten Cerna RN - 10/19/2023 4:54 PM EDTAddended by: KIRESTEN CERNA on: 10/19/2023 04:54 PM Modules accepted: [facility]* Addendum Note - Kiersten Cerna RN - 10/19/2023 4:54 PM EDTAddended by: KIERSTEN CERNA on: 10/19/2023 04:54 PM Modules accepted: Orders [facility] Note* Addendum Note - Kiersten Cerna RN - 10/19/2023 4:54 PM EDTAddended by: KIERSTEN CERNA on: 10/19/2023 04:54 PM Modules accepted: Orders [facility] Note* Addendum Note - Kiersten Cerna RN - 10/19/2023 4:54 PM EDTAddended by: KIERSTEN CERNA on: 10/19/2023 04:54 PM Modules accepted: Orders [facility]05-13-[facility] Note* Addendum Note - Kiersten Cerna RN - 10/19/2023 4:54 PM EDTAddended by: KIERSTEN CERNA on: 10/19/2023 04:54 PM Modules accepted: Orders [facility]05-13-[facility] Telephone encounter Note* Telephone Encounter - Kiersten Cerna RN - 10/19/2023 4:33 PM EDT Called and spoke to patient today. Discussed results and recommendations from PCP. Patient would like to do pulmonary rehab, but would like to wait a couple months since he is still settling. He saidthat he just moved from [place] to [place] and needs to have his medications sent to a pharmacy in [place]. [facility] Telephone encounter Note* Telephone Encounter - Kiersten Cerna RN - 10/19/2023 1:52 PM EDT Attempted to reach patient twice, states wireless caller is not available, please try again later. Will follow up later this afternoon. [facility]05-[facility] Telephone encounter Note* Telephone Encounter - [...] happy to place that referral. Thank you! [facility]04-29[facility] Evaluation + Plan note* Assessment & [...] to PCAM clinic to discuss re initiation/titration [facility]04-29[facility] Miscellaneous Notes* Assessment & Plan Note [...] lung cancer screening [facility] Evaluation + Plan note* Assessment & Plan Note - Ivonne Hnery MD - 10/05/2023 4:57 PM EDTAssociated Problem(s): BPH (benign prostatic hyperplasia) Continuing Flomax. After shared decision making, elected to pursue PSA screening. This was found ria elevated and will repeat in 6-8 weeks. If still elevated, plan for urology referral [facility]04[facility] Evaluation + Plan note* Assessment & Plan Note - Ivonne eHnry MD - 10/05/2023 4:56 PM EDTAssociated Problem(s): Essential hypertension Blood pressure is well controlled.Updating chem 6. Continuing current regimen. [facility] Tele[facility] encounter Note* Telephone Encounter - Latisha Buchanan RN - 10/05/2023 4:47 PM EDT Spoke with patient, he voices understanding. [facility]04-29-[facility] Miscellaneous Notes* Telephone Encounter - Latisha Buchanan RN - 10/05/2023 4:47 PM EDT Spoke with patient, he voices understanding. * Telephone Encounter - Ivonne Henry MD - 10/05/2023 4:38 PM EDT Please, let Mr. Turcios know that I have discussed his case with Dr. Alfaro from [facility] clinic. He is working to get him [...] center. He should receivecall to schedule with [facility]. He states he is almost out of [...] to discuss next steps. documented in this encounterDayton [facility] Hospital04-29-2024 Evaluation + Plan note* Assessment & Plan Note - Ivonne Henry MD - 10/05/2023 4:46 PM EDTAssociated Problem(s): Cocaine abuse in remission Stable, encouraged sustained remission [facility]04-[facility] Evaluation + Plan note* Assessment & Plan Note - Ivonne Henry MD - 10/05/2023 4:45 PM EDTAssociated Problem(s): Tobacco abuse Tobacco Cessation Plan: I provided tobacco cessation counseling. He is not ready to quit. Counseling was provided. [facility]04-29-[facility] Evaluation + Plan note* Assessment & Plan Note - Ivonne Henry MD - 10/05/2023 4:44 PM EDTAssociated Problem(s): DU (perforated duodenal ulcer) Stable, continue PPI [facility]04-29-2024 Evaluation + Plan note* Assessment & Plan Note - Ivonne Henry MD - 10/05/2023 4:42 PM EDTAssociated Problem(s): PUD (peptic ulcer disease) Continue omeprazole, updating H pylori testing. [facility] Tele[facility] encounter Note* Telephone Encounter - Ivonne Henry MD - 10/05/2023 4:38 PM EDT Please, let Mr. Turcios know that I have discussed his case with Dr. Alfaro from [facility] clinic. He is working to get him in later this week or next and we have agreed to wait until he gets seen to adjusthis neuropathic agents further as we anticipate starting suboxone at that time. [facility]04-[facility] Telephone encounter Note* Telephone Encounter - Latisha Buchanan RN - 10/05/2023 9:25 AM EDT Spoke with patient, he is aware of results/recommendations. Provided number for patient to schedule PFT, Lung Ca Screening, and spine center. He should receivecall to schedule with [facility]. He states he is almost out of [...] to see urology to discuss next steps. 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 Nystatin 246792 UNIT/ML oral suspension Swish and swallow 10 [...] this visit. Immunization History Administered Date(s) Administered 9121-2444 COVID-19 monovalent vaccine, mRNA, Pfizer, 0.3 ML [...] up regarding physical. Ivonne Henry MD Clinical Bird Keeper Division of General Internal Medicine [facility] Instructions* Patient Instructions* Ivonne Henry MD - 10/02/2023 2:40 PM EDT - Get updated labs on 2nd floor - PFTs ordered - PCAM consult for addiction medicine - Spine center referral - Lung cancer screening - Ophthalmology consult documented in [facility] Note* Quick Note - Inge Chavez [...] verbalizes understanding.Peripheral IV removed.Patient has all belongings. [id number] Miscellaneous Notes* Quick Note - Inge Chavez [...] Dual RN skin check off with: Dannie BELLchild care sitter Consult needed?: no Visitor Identified and documented: [...] No acute cardiopulmonary process identified. Workstation ID: [id number] Recent Results (from the past 12 hour(s)) [...] ECG and sinus tachycardia documented in this [id number] Consult note* KIYA Aguirre - 08/21/2021 11:18 AM EDTAssociated Order(s): IP CONSULT TO CARE MANAGEMENT CLAUDIO consulted to assist with transport home for pt. Pt can utilize his insurance by calling . CLAUDIO updated treatment team. [id number] Consult note* KIYA Aguirre - 08/21/2021 11:18 AM EDT Associated Order(s): IP CONSULT TO CARE MANAGEMENT CLAUDIO consulted to assist with transport home for pt. Pt can utilize his insurance by calling . CLAUDIO updated treatment team. documented in this [id number] Hospital course Narrative* Pablo Davila, DO - 08/21/2021 10:27 AM EDT Images from the original note were not included. [facility] DISCHARGE SUMMARY Wolf Turcios Admitted: 08/19/2021 Discharge [...] as: AMMY BONILLA Physician(s) Follow Up: [facility] [place] [facility] [address] [place] [address] Follow up Please call for hospital related [...] on 08/21/21, 10:27 AM documented in this [id number] History of Present illness Narrative* Pablo Davila DO - 08/21/2021 6:32 AM EDT [facility] PROGRESS NOTE Assessment and Plan Wolf Turcios [...] Davila DO - 08/20/2021 6:35 AM EDT [facility] PROGRESS NOTE Assessment and Plan Wolf Turcios [...] Radiology, Medications and Transcriptions documented in this [id number] Note* Quick Note - Fabiola Armstrong RN - 08/20/2021 12:43 AM EDT Patient oriented to the 9th floor: yes Patient oriented to room and call system: yes Appropriate Wrist bands present: yes Dual RN skin check off with: Dannie BELLchild care sitter Consult needed?: no Visitor Identified and documented: no visitor Patient belongings documented: yes What Belongings are present?: Clothing, cellphone Discharge Plan reviewed with patient: yes How will the patient get home when discharged: Care Management consult needed?: no [id number] Emergency department Note* Gregory Harrington RN - 08/19/2021 8:57 PM EDT Awaiting CTPA result before bringing up [id number] Emergency department Note* Gregory Harringtno RN - 08/19/2021 8:57 PM EDT Awaiting CTPA result before bringing up * Zoe Moreira CNP - 08/19/2021 7:10 PM EDT ED PROVIDER NOTE [facility] ONCOLOGY/SURGERY NAME: Wolf Turcios AGE: 61 y.o. : 1960 VISIT DATE: 08/19/2021 CSN: [id number] PCP: Karma Mark CNP Chief Complaint Patient [...] pneuomia and emphysema Cocaine abuse in remission ([facility]) None since 2015- now on suboxone COPD (chronic obstructive pulmonary disease) ([facility]) Multiple ED visits- last 08/2020 Edema BLE + ED visit 07/25/20 Emphysema of lung ([facility]) Severe Essential hypertension 01/10/2017 Hyperlipidemia Neck pain Peptic ulcer disease PUD (peptic ulcer disease) Sepsis due to pneumonia ([facility]) 04/2020 Multiple ED visits- last 08/2020. Saw Pulm Dr Hollis while IP 04/20/20 Thoracic aortic aneurysm ([facility]) States d/t drug overdose TIA (transient ischemic attack) Tobacco abuse Past Surgical History: Procedure Laterality Date ARTHROPLASTY HIP TOTAL Right 01/28/2021 Procedure: RIGHT TOTAL HIP ARTHROPLASTY; Surgeon: Teresa Terry MD; Location: [facility] OR; Service: Orthopedic EYE SURGERY Right Laser [...] No acute cardiopulmonary process identified. Workstation ID: [id number] Procedures MDM Very pleasant 61-year-old male history [...] to plan of care. Checkout given to [facility]. . Clinical Impression: 1. Acute exacerbation of [...] available in inpatient encounters. Please contact a systems mechanic. Zoe Moreira CNP 08/19/21 [id number] * Fahad Bedolla RN - 08/19/2021 5:01 PM EDT Pt c/o SOB that started 2 days ago and has been worsening since, pt has hx of COPD, also states he has a lot of congestion * Mandy Calle RN - 08/19/2021 5:01 PM EDT Bed: 46 Expected date: Expected time: Means of arrival: Comments: M815, SOB, perla documented in this [id number] Physician Emergency department Note* Zoe Moreira CNP - 08/19/2021 7:10 PM EDT ED PROVIDER NOTE [facility] ONCOLOGY/SURGERY NAME: Wolf Turcios AGE: 61 y.o. : 1960 VISIT DATE: 08/19/2021 CSN: [id number] PCP: Karma Mark CNP Chief Complaint Patient [...] on suboxone COPD (chronic obstructive pulmonary disease) ([facility]) Multiple ED visits- last 08/2020 Edema BLE + ED visit 07/25/20 Emphysema of lung ([facility]) Severe Essential hypertension 01/10/2017 Hyperlipidemia Neck pain Peptic ulcer disease PUD (peptic ulcer disease) Sepsis due to pneumonia ([facility]) 04/2020 Multiple ED visits- last 08/2020. Saw Pulm Dr Hollis while IP 04/20/20 Thoracic aortic aneurysm ([facility]) States d/t drug overdose TIA (transient ischemic attack) Tobacco abuse Past Surgical History: Procedure Laterality Date ARTHROPLASTY HIP TOTAL Right 01/28/2021 Procedure: RIGHT TOTAL HIP ARTHROPLASTY; Surgeon: Teresa Terry MD; Location: [facility] OR; Service: Orthopedic EYE SURGERY Right Laser [...] No acute cardiopulmonary process identified. Workstation ID: [id number] Procedures MDM Very pleasant 61-year-old male history [...] to plan of care. Checkout given to [facility]. . Clinical Impression: 1. Acute exacerbation of [...] available in inpatient encounters. Please contact a systems mechanic. Zoe Moreira CNP 08/19/21 [id number] [facility] Work Phone: [phone]) 834-216403-14-2022 History and physical note* Vishal Valentin MD - 08/19/2021 6:54 PM EDT [facility] HISTORY AND PHYSICAL Patient Name: Wolf Turcios : 1960 MR #: [id number] Admit Date: 08/19/2021 Physicians: Karma Mark CNP (Family); No ref. provider found (Referring) Wolf Turcios is a 61 y.o. 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 Saw Pulm Dr Hollis while IP 04/20/20 Thoracic aortic aneurysm ([facility]) States d/t drug overdose TIA (transient ischemic attack) Tobacco abuse Past Surgical History Past Surgical History: Procedure Laterality Date ARTHROPLASTY HIP TOTAL Right 01/28/2021 Procedure: RIGHT TOTAL HIP ARTHROPLASTY; Surgeon: Teresa Terry MD; Location: [facility] OR; Service: Orthopedic EYE SURGERY Right Laser [...] 08/19/21 7:51 PM Transcriptions 08/19/21 7:51 PM [id number] History and physical note* Vishal Valentin MD - 08/19/2021 6:54 PM EDT [facility] HISTORY AND PHYSICAL Patient Name: Wolf Turcios : 1960 MR #: [id number] Admit Date: 08/19/2021 Physicians: Karma Mark CNP [...] pneuomia and emphysema Cocaine abuse in remission ([facility]) None since 2015- now on suboxone COPD (chronic obstructive pulmonary disease) ([facility]) Multiple ED visits- last 08/2020 Edema BLE + ED visit 07/25/20 Emphysema of lung ([facility]) Severe Essential hypertension 01/10/2017 Hyperlipidemia Neck pain Peptic ulcer disease PUD (peptic ulcer disease) Sepsis due to pneumonia ([facility]) 04/2020 Multiple ED visits- last 08/2020. Saw Pulm Dr Hollis while IP 04/20/20 Thoracic aortic aneurysm ([facility]) States d/t drug overdose TIA (transient ischemic attack) Tobacco abuse Past Surgical History Past Surgical History: Procedure Laterality Date ARTHROPLASTY HIP TOTAL Right 01/28/2021 Procedure: RIGHT TOTAL HIP ARTHROPLASTY; Surgeon: Teresa Terry MD; Location: [facility] OR; Service: Orthopedic EYE SURGERY Right Laser [...] Transcriptions 08/19/21 7:51 PM documented in this [id number] Note* ED Attestation Note - Paige Perla [...] No acute cardiopulmonary process identified. Workstation ID: [id number] Recent Results (from the past 12 hour(s)) [...] Acid 1.6 0.6 - 2.0 mmol/L . [facility] Work Phone: [phone] Note* ED Procedure Note - Paige Perla [...] Clinical impression: abnormal ECG and sinus tachycardia [id number] Emergency department Note* Fahad Bedolla RN - 08/19/2021 5:01 PM EDT Pt c/o SOB that started 2 days ago and has been worsening since, pt has hx of COPD, also states he has a lot of congestion [id number] Emergency department Note* Mandy Calle RN - 08/19/2021 5:01 PM EDT Bed: 46 Expected date: Expected time: Means of arrival: Comments: [id number] patel [id number] History of Present illness Narrative* Elpidio Schmitt [...] co rrespondence this note was generated by [employer] voice recognition software. Some grammatical or spelling errors may occur using the system. documented in this [id number] History of Present illness Narrative* Janusz Myrick [...] Essential hypertension COPD (chronic obstructive pulmonary disease) ([facility]) Bilateral hip pain Tobacco use Thoracic aortic aneurysm, without rupture ([facility]) Hydrocele Acute respiratory failure ([facility]) Sepsis ([facility]) Pneumonia Opioid dependence ([facility]) Primary osteoarthritis of right hip Illiterate Homeless Status post right hip replacement COPD exacerbation ([facility]) Objective General: The patient is [...] expedite correspondence this note was generated by [employer] voice recognition software. Somegrammatical or spelling errors may occur using the system. documented in this [id number] History of Present illness Narrative* Teresa Terry MD - 03/15/2021 10:07 AM EDT [facility] [address] [place] [address] Patient Name: Wolf Turcios Patient Age: 60 [...] walking. He is planning on moving to [facility] tomorrow with his girlfriend. We advised him to continue his hip flexion precautions for additional 6 weeks. He is also advised to have his hip checked at least yearly. He can do that here or in [place]. Teresa Terry MD Note: To expedite correspondence this note was generated by [employer] voice recognition software. Somegrammatical or spelling errors may occur using the system. documented in this [id number] History of Present illness Narrative* Teresa Terry MD - 02/15/2021 10:29 AM EDT [facility] [address] [place] [id number] Patient Name: Wolf Turcios Patient Age: 60 [...] expedite correspondence this note was generated by [employer] voice recognition software. Somegrammatical or spelling errors may occur using the system. documented in this [id number] History of Present illness Narrative* Jihan Orozco PA-C - 02/08/2021 9:00 AM EDT [facility] [address] [place] [address] Patient Name: Wolf Turcios Patient Age: 60 [...] Date: 02/05/2021 6:11 PM Patient Status: Emergency Certified Court/Medical Interpreter: Coby Elizalde, RVT, RDMS Referring Physician: ACE Burgess TIMOTHY, ; Indications M79.604 - Pain in right leg Procedure Description 47554 Duplex examination using B-mode, color and spectral [...] expedite correspondence this note was generated by [employer] voice recognition software. Somegrammatical or spelling errors may occur using the system. documented in this [id number] History of Present illness Narrative* Nuzhat Banks RN - 01/30/2021 7:45 AM EDT 01-30-2021 745 AM Patient discharged last evening. [facility]. Routed note to intake [facility]. * Tamera Rivera RN - 01/29/2021 11:20 AM EDT 01/29/2021 11:20am PAS verified benefits: HOME HEALTH BENEFITS: [facility] MEDICAID COMMUNITY PLAN, NO DED NO OOP COVERAGE 100% 01/29/2021 12:12pm Spoke with care management RN and anticipated discharge is for today. [facility] order in for SN services. Patient is s/p R ISABEL. Dr. Teresa Zurita to follow for [facility]. Spoke with patient regarding [facility] referral for SN, offered and agreeable to [facility] services. Reviewed demographics and insurance. Discussed [facility] expectations and all questions answered. Patient request staff call a day ahead for scheduling. Services Provided : SN Services ordered by their physician review: Yes Patient agreeable to the services that have been ordered: Yes Demographics: [facility] [address] [place] [address] Where will patient receive services?: Home Home What is the best number to reach the patient?: [phone] Secondary Number?: Emergency contact: Day ( daughter) [phone] Does the patient prefer a phone call or text message? Phone PCP/Following Physician: Dr. Teresa Terry [phone] to follow for [facility] order signed: Yes signed Caregiver/Teachable Caregiver (Relationship, [...] or BWC claim: N/A documented in this [id number] Miscellaneous Notes* Addendum Note - Annetta Vance CRNA - 01/29/2021 9:52 AM EDT Addendum created 01/29/21951 by Annetta Cassie Synk, DRAINAGE ENGINEER Cosign clinical note documented in this [id number] Procedure anesthesia Narrative * Procedure Summary Procedure [...] George Fam II documented in this encounter [id number] Surgical operation note* Anesthesia Postprocedure Evaluation - [...] timeout performed Procedure Monitoring: heart rate, cardiac catheterization technologist, pulse oximetry and BP Patient sedated with [...] with: patient Plan discussed with: PARISH and DRAINAGE ENGINEER Physical Exam Airway Mallampati: II Cardiovascular - [...] Other Positive: substance abuse documented in this [id number] Miscellaneous Notes* Addendum Note - Jihan Orozco [...] PM Modules accepted: Orders documented in this [id number] Miscellaneous Notes* Addendum Note - Pablo Askew [...] PM Modules accepted: Orders documented in this [id number] Miscellaneous Notes* Addendum Note - Jihan Orozco PA-C - 01/24/2021 3:03 PM EDT Addended by: JIHAN OROZCO on: 01/24/2021 03:03 PM Modules accepted: Orders * Addendum Note - Pablo Askew MA - 01/24/2021 1:56 PM EDT Addended by: PABLO ASKEW on: 01/24/2021 01:56 PM Modules accepted: Orders documented in this [id number] History of Present illness Narrative* Michelle Lindsey, AVIONICS SYSTEMS ENGINEER - 01/24/2021 1:32 PM EDT Images from [...] EDT Mr. Turcios was seen at the [facility] office at [facility] for presurgical pulmonary evaluation. Dr. 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 No running water or [...] oxygen to keep O2 sat >88% --Consult social work coordinator to help secure stable place to live --Recommend in-patient rehab since patient has no running water or bathroom facilities which will affect his ability to care for self and surgical wound. --Illiterate requiring careful verbal instructions. We will see him for follow-up in 6 months. This note was dictated using [employer] and may contain errors that were not corrected during editing. documented in this [id number] Miscellaneous Notes* Telephone Encounter - Pablo Askew MA - 01/23/2021 1:44 PM EDT Preop nasal swab + for staph Requested Prescriptions Pending Prescriptions Disp Refills mupirocin (BACTROBAN) 2 % ointment 15 g 0 Sig: Apply 0.5g into each nostril twice daily x 5 days prior to surgery . ' documented in this [id number] Nurse Note* Lotus Rajput RN - 01/14/2021 2:03 PM EDT Patient Instructions for [facility]: Prior to surgery: Please bath the night [...] you arrive at the [facility] on the day of your surgery, please note that director of dance parking is free. Pull up to the [...] to view our online educational program in [employer]? It is very helpful to watch this as it can help you understand your surgery preparation process here at [facility]. It will provide you with [...] by a Medical Taxi documented in this [id number] History and physical note* Harpal Nieto MD [...] Albumin, MRSA Culture/Screen And corresponds with patient's deliverer pharmacy 2. Primary osteoarthritis of right hip Patient [...] an acceptable cardiac risk based on Current [place] [employer]iology/[place] [employer] (ACC/AHA) guidelines for perioperative cardiovascular [...] failure. He has been actively followed by deliverer pharmacy. See notation fromMa2020 TIM previous pneumonia/hospital stay April 2020 and persistent consolidation on CT imaging in July and September 2020. Can request correspondence with patient's deliverer pharmacy to assure optimization for surgery Patient has [...] VTE disease: Antithrombotic Therapy and Prevention ofThrombosis, [place] [employer] (ACCP) Evidence-Based Clinical [...] pneuomia and emphysema Cocaine abuse in remission ([facility]) None since 2015- now on suboxone COPD (chronic obstructive pulmonary disease) ([facility]) Multiple ED visits- last 08/2020 Edema BLE + ED visit 07/25/20 Emphysema of lung ([facility]) Severe Essential hypertension 01/10/2017 Hyperlipidemia Neck pain Peptic ulcer disease PUD (peptic ulcer disease) Sepsis due to pneumonia ([facility]) 04/2020 Multiple ED visits- last 08/2020. Saw Pulm Dr Hollis while IP 04/20/20 Thoracic aortic aneurysm ([facility]) States d/t drug overdose TIA [...] kg/m Constitutional--Conversant, in no acute distress Eyes: [place] conjunctivae, no ptosis. Pupils equal Bilaterally, Anicteric [...] Normal Narrative Transthoracic Echocardiogram Patient: KAROLINA Vazquez [facility] Rec#: [id number] (Age): 1960(59y) Height: 187(cm)/73(in) Study Date: 11/02/2019 Weight: 63.5(kg)/140(lb Room#: 56 BSA: [id number] Type: Inpatient Loc: [facility] Echo Lab Sex: M Reading: Jeremiah Romero D.O. Referring: Lisa Howe Journeyman Powerhouse Operator: LATISHA DURAN History: Asthma. COPD. Hypertension. Diagnosis: ICD-10-PCS Syncope and collapse (R55) Syncope (780.2) CPT Code(s): ECHO COMPLETE W/ DOPPLER (48437) Study Quality The study quality is technically [...] patient for surgery includes - More recent [facility] electronic records reviewed pertinent to history. Chest x-ray reviewed in [facility] from December 2020 elevated right hemidiaphragm. Chronic right basilar opacity. Improved aeration since previous exam. CTA pulmonary arteries from September 24, 2020 IMPRESSION: 1. No evidence of pulmonary embolic disease. 2. Left lower lobe consolidation most consistent with pneumonia. Small left pleural effusion. Radiographic follow-up to resolution is recommended. 3. Severe centrilobular emphysema. Echocardiogram reviewed in [facility] everywhere from November 29, 2018 Narrative Low [...] the surgeon's office/surgery center. documented in this [id number] Instructions* Patient Instructions* Harpal Nieto MD - 01/14/2021 1:34 PM EDT Images from the original note were not included. If your surgery date changes or you change your surgery date, please call us at [phone] Preoperative Medication Instructions In preparation for surgery [...] medications that contain aspirin, such as Michelle Mary Esther, Pepto- Bismol, Anacin), antiinflammatory medications such as Advil, Motrin, Ibuprofen, Naproxen, Aleve, Michelle Mary Esther, Pepto-Bismol, Anacin, Diclofenac, Voltaren, Daypro, Etodolac, Ketoprofen, Piroxicam, Relafen, Nabumetone, etc. Also discontinue Vitamin C, Vitamin E, [place]-3 Fatty Acid, Fish Oil or Lovaza, and [...] the day of surgery. documented in this [id number] Emergency department Note* Juanita Roy RN - [...] EMS- pt also received glucagon from EMS field captain with no relief. * Yeny Serrano RN - 12/13/2020 12:18 PM EDT Suction at bedside. * Kvng Baker DO - 12/13/2020 12:18 PM EDT [facility] ED Resident Note: NAME: Wolf Turcios 60 y.o. CSN: [id number] PCP: Karma Mark CNP History: Chief Complaint: [...] Social Gatherings with Friends and Family: Attends Faith Services: Active Member of Clubs or Organizations: [...] Procedure Abnormality Status --------- ------ CBC Auto Differential[[id number]] Abnormal Final result Please view results for [...] Kvng Baker DO ED Resident Physician [facility] Emergency Department (Please note that portions of [...] states this episode happened about 20 minutes field captain. Resp reg and unlabored. Skin warm and dry. Pt able to speak in short phrases while drooling. Pt intermittentlygagging. * Yeny Serrano RN - 12/13/2020 12:13 PM EDT Bed: 60 Expected date: Expected time: Means of arrival: Comments: M2, grape in throatyulianael documented in this [id number] Miscellaneous Notes* ED Update Note - Angelika [...] of separately performed procedures. documented in this [id number] Consult note* Emmy Godfrey CNP - 12/13/2020 12:28 PM EDT Associated Order(s): IP CONSULT TO GASTROENTEROLOGY CONSULT NOTE Patient Name: Wolf Turcios Admit Date: [id number] MR #: [id number] : 1960 Physicians: Karma Mrak CNP (Family); No ref. provider found (Referring) [...] was eating a grape about 20 minutes POLICE CAPTAIN [employer]CINCT when he felt it get lodged in his esophagus. He is in no respiratory distress. He is unable to tolerate his own secretions. Pt is a poor historian but thinks he has been scoped in the past for dysphagia. I do not see any scopes in [facility] or care everywhere. Pt is [...] Social Gatherings with Friends and Family: Attends Faith Services: Active Member of Clubs or Organizations: [...] of the food bolus. documented in this [id number] Emergency department Note* John Montes DO - 10/03/2020 10:39 PM EDT [facility] EMERGENCY DEPARTMENT Attending Note: NAME: Wolf Turcios 60 y.o. CSN: [id number] PCP: Karma Mark CNP Chief Complaint: Leg [...] file Gets together: Not on file Attends muslim service: Not on file Active member of [...] words are mis-transcribed.) John Montes DO 10/03/20 [id number] * Ruth Santacruz RN - 10/03/2020 7:09 PM EDT Presents with right hip pain; acute on chronic. States chronic pain is related to osteoarthritis. Acute pain is related to stepping down off a ladder the wrong way today around 1500. documented in this [id number] Emergency department Note* Ugo Ochoa MD - 09/21/2020 1:55 PM EDT Associated Order(s): ECG 12 Lead ED PROVIDER NOTE [facility] EMERGENCY DEPARTMENT NAME: Wolf Turcios AGE: 60 y.o. : 1960 VISIT DATE: 09/21/2020 CSN: [id number] PCP: Karma Mark CNP Chief Complaint Patient [...] file Gets together: Not on file Attends muslim service: Not on file Active member of [...] ms QTC Calculation (Bezet) 444 ms P [place] 82 degrees R [place] 74 degrees T [place] 73 degrees CBC Auto Differential Result Value [...] Laci Johnson, - 09/21/2020 11:16 AM EDT [facility] ED Resident Note: NAME: Wolf Turcios 60 y.o. CSN: [id number] PCP: Karma Mark CNP History: Chief Complaint: [...] file Gets together: Not on file Attends muslim service: Not on file Active member of [...] at the following links: For Healthcare Providers: https://www.fda.gov/media/144967/download For Patients: https://www.fda.gov/media/880678/download NT PRO BNP - Normal Narrative: Pride Study Cut-offs Rule In: < /= 50 Years >450 pg/mL 51 Years - 75 Years >900 pg/mL 76 Years - 99 Years >1800 pg/mL Rule Out: All patients <300 pg/mL CBC AND DIFFERENTIAL Narrative: The following orders were created for panel order CBC w/ Diff. Procedure Abnormality Status --------- ------ CBC Auto Differential[[id number]] Abnormal Final result Please view results for these tests on the individual orders. TROPONIN CT Pulmonary Arteries Preliminary Result 1. No evidence of pulmonary embolic disease. 2. Left lower lobe consolidation most consistent with pneumonia. Small left pleural effusion. Radiographic follow-up to resolution is recommended. 3. Severe centrilobular emphysema. RECOMMENDATIONS: Radiographic follow-up to resolution. [facility] Workstation ID: [id number] Procedures: Procedures Medications Given in the ED: [...] Laci Johnson DO ED Resident Physician [facility] Emergency Department (Please note that portions of [...] + back in April documented in this [id number] Miscellaneous Notes* ED Attestation Note - Ugo [...] of separately performed procedures. [facility]* Diagnosis Community acquired pneumonia, [...] of right hip [facility] Diagnosis Primary osteoarthritis of right hip- Primary Preop pulmonary/respiratory exam- Primary Pre-operative respiratory examination Chronic obstructive pulmonary disease with acute exacerbation (HCC) Tobacco dependence Tobacco use disorder Homeless Lack of housing Illiterate Other psychological or physical stress, not elsewhere classified Primary osteoarthritis of right hip [facility] Diagnosis Primary osteoarthritis of right hip- Primary Primary osteoarthritis of right hip- Primary Primary osteoarthritis of right hip [facility] Diagnosis Primary osteoarthritis of right hip- Primary Exposure to SARS-associated coronavirus Primary osteoarthritis of right hip- Primary Primary osteoarthritis of right hip [facility] Diagnosis Primary osteoarthritis of right hip- Primary Exposure to SARS-associated coronavirus Primary osteoarthritis of right hip- Primary Primary osteoarthritis of right hip [facility] Diagnosis Primary osteoarthritis of right hip- Primary Exposure to SARS-associated coronavirus Primary osteoarthritis of right hip- Primary Primary osteoarthritis of right hip [facility]* Diagnosis Primary osteoarthritis of right hip- [...] lumbosacral intervertebral disc [facility] Diagnosis Other emphysema Health care maintenance Unspecified general medical examination [facility] Diagnosis Screening for lung cancer [facility]* Diagnosis COPD with acute exacerbation (HCC)- Primary COPD exacerbation (HCC) Obstructive chronic bronchitis with exacerbation Increased sputum production Tachypnea COPD with acute exacerbation (HCC) Acute on chronic respiratory failure with hypoxia ([facility]) [facility]* Diagnosis Chronic obstructive pulmonary disease with [...] perforation, or obstruction [facility]* Diagnosis Chronic obstructive pulmonary disease with acute exacerbation- Primary Obstructive chronic bronchitis with exacerbation [facility] Diagnosis COPD with acute exacerbation (HCC)- Primary [facility] Diagnosis Chronic obstructive pulmonary [...] of external genitals [facility]* Diagnosis Chronic obstructive pulmonary [...] Bladder outlet obstruction [facility]* Diagnosis Chronic obstructive pulmonary disease, unspecified [...] specific antigen (PSA) documented [facility]* Diagnosis Chronic obstructive pulmonary disease, [...] specific antigen (PSA) [facility] noteNo assessment information availableWBarnesville Hospital Work Phone: Evaluation note* Diagnosis Chronic obstructive [...] specific antigen (PSA) [facility]* Diagnosis Chronic obstructive pulmonary disease, unspecified [...] specific antigen (PSA) [facility]* Diagnosis Chronic obstructive pulmonary [...] neoplasm of prostate [facility]* Diagnosis Chronic obstructive pulmonary [...] neoplasm of prostate [facility] Diagnosis Chronic obstructive pulmonary [...] neoplasm of prostate [facility] Diagnosis Chronic obstructive pulmonary [...] neoplasm of prostate [facility] Diagnosis Chronic obstructive pulmonary [...] neoplasm of prostate [facility]* Diagnosis Chronic obstructive pulmonary disease, [...] neoplasm of prostate [facility]* Attachments The following attachments cannot be sent through Care Everywhere. * Pneumonia ([place]) * Pneumonia: Self-Care: Video ([place]) * COPD: Prevent Lung Infections: General Info ([place]) [facility]* Attachments The following attachments cannot be sent through Care Everywhere. * Hip Arthritis: Exercises ([place]) * Hip Pain ([place]) [facility] Dis[facility] instructions* Attachments The following attachments cannot be sent through Care Everywhere. * Esophagitis ([place]) [facility] in [facility] Discharge instructions* Attachments The following attachments cannot be sent through Care Everywhere. * COPD ([place]) [facility] Discharge instructionsAdditional Instructions Status post prostate biopsy with bleeding. Hemoglobin is 15. Anoscopy 5 bleeding with retraction of the anoscopy. Take stool softeners as prescribed twice a day to avoid irritation. follow-up with your urologist.[facility] Work Phone: [facility] for referral (narrative)* Consultation (Routine) Status Reason Specialty Diagnoses / Procedures Referred By Contact Referred To Contact Closed Specialty Services Required/Patie nt's Best Interest Care Management Diagnoses Primary osteoarthritis of right hip Jihan Orozco PA-C [address] [phone] Electronically signed by Teresa Terry MD at [facility] for referral (narrative)* Consultation (Routine) - Closed Specialty Diagnoses / Procedures Referred By Alexa t Referred To Contact Care Management Diagnoses Primary osteoarthritis of right hip Jihan Orozco PA-C [address] [phone] Referral ID Status Reason Start Date Expiration Date V isits Requested Visits Authorized [id number] Closed Specialty Services Required/Tatyana ent's Best Interest 12/25/2020 12/25/2021 1 1 [facility] for referral (narrative)* Consultation (Urgent) - Pending Review Specialty Diagnoses / Procedures Referred By Contlorena t Referred To Contact Spine Diagnoses Neurogenic claudication Ivonne Henry MD [address] [place] [address] [place] [phone] Referral ID Status Reason Start Date Expiration Date V isits Requested Visits Authorized [id number] Pending Review 10/02/2023 10/26/2024 1 1 * Consultation (Routine) - Pending Review Specialty Diagnoses / Procedures Referred By Contac t Referred To Contact Ophthalmology Diagnoses Cataract, unspecified cataract type, unspecified laterality Ivonne Henry MD [address] [place] [address] Referral ID Status Reason Start Date Expiration Date V isits Requested Visits Authorized [id number] Pending Review 10/02/2023 10/26/2024 1 1 * Consultation (Routine) - Pending Review Specialty Diagnoses / Procedures Referred By Contac t Referred To Contact Pulmonary Diagnostics Diagnoses Tobacco abuse Encounter for screening for lung cancer Ivonne Henry MD [address] [place] [phone] Referral ID Status Reason Start Date Expiration Date V isits Requested Visits Authorized [id number] Pending Review 10/02/2023 10/26/2024 1 1 * Pulmonary Rehabilitation (Routine) - Pending Review Specialty Diagnoses / Procedures Referred By Contac t Referred To Contact Diagnoses Other emphysema Health care maintenance Procedures PFT STANDARD Ivonne Henry MD [address] [place] [phone] Referral ID Status Reason Start Date Expiration Date V isits Requested Visits Authorized [id number] Pending Review 10/02/2023 10/26/2024 1 1 * Consultation (Routine) - Pending Review Specialty Diagnoses / Procedures Referred By Contac t Referred To Contact Addiction Medicine Diagnoses Cocaine abuse in remission Opioid use disorder in remission Ivonne Henry MD [address] [place] [address] Zi Alfaro MD [address] [place] [address] Referral ID Status Reason Start Date Expiration Date V isits Requested Visits Authorized [id number] Pending Review 10/02/2023 10/26/2024 1 1 [facility] for referral (narrative)* Unlisted Procedure Code (Routine) - New Request Specialty Diagnoses / Procedures Referred By Contac t Referred To Contact Procedures PLATELET MONITORING PER PROTOCOL Reji Al MD [address] [place] [address] Referral ID Status Reason Start Date Expiration Date V isits Requested Visits Authorized [id number] New Request 10/29/2023 11/22/2024 1 1 * Unlisted Procedure Code (Routine) - New Request Specialty Diagnoses / Procedures Referred By Contac t Referred To Contact Procedures DVT/VTE RISK ASSESSMENT Reji Al MD [address] [place] [address] Referral ID Status Reason Start Date Expiration Date V isits Requested Visits Authorized [id number] New Request 10/29/2023 11/22/2024 1 1 * Radiology (Emergency) - New Request Specialty Diagnoses / Procedures Referred By Contac t Referred To Contact Procedures ECG Reji Al MD [address] [place] [address] Referral ID Status Reason Start Date Expiration Date V isits Requested Visits Authorized [id number] New Request 10/29/2023 11/22/2024 1 1 * Radiology (Emergency) - New Request Specialty Diagnoses / Procedures Referred By Contac t Referred To Contact Procedures ECG Washington Howell MD [address] [place] [phone] Referral ID Status Reason Start Date Expiration Date V isits Requested Visits Authorized [id number] New Request 10/29/2023 11/22/2024 1 1 [facility] Consultation (Routine) - New Request Specialty Diagnoses / Procedures Referred By Contac t Referred To Contact Pulmonary Disease Diagnoses Chronic obstructive pulmonary disease with acute exacerbation Zi Alfaro MD [address] [address] Referral ID Status Reason Start Date Expiration Date V isits Requested Visits Authorized [id number] New Request 11/04/2023 11/28/2024 1 1 * Adjunctive Therapy (Routine) - New Request Specialty Diagnoses / Procedures Referred By Contac t Referred To Contact Pulmonary Disease Diagnoses Chronic obstructive pulmonary disease with acute exacerbation Procedures ID PHYS/QHP SVCS OP PULM REHAB WO CONT OXIMTRY MNTR Zi Alfaro MD [address] [facility] [address] [place] [phone] Referral ID Status Reason Start Date Expiration Date V isits Requested Visits Authorized [id number] New Request 11/04/2023 11/28/2024 1 1 [facility] (narrative)No reason for referral information availableWBarnesville Hospital Work Phone: Reason for visit Narrative* Evaluate and Treat (Routine) - Closed Specialty Diagnoses / Procedures Referred By Contac t Referred To Contact Urology Diagnoses Injury to penis Kvng Escoto PA-C [address] [facility] [address] [place] [address] Phone: tel: fax: Kvng Escoto PA-C [address] [facility] [address] [place] [address] Phone: tel: fax: Referral ID Status Reason Start Date Expiration Date V isits Requested Visits Authorized [id number] Closed Specialty Services Required/Tatyana ent's Best Interest 10/18/2024 10/18/2025 1 1 [facility] * ManuelJessikalle, AVIONICS SYSTEMS ENGINEER - 12/15/2017 11:07 AM EDT Formatting of this note may be different from the original. [facility] DISCHARGE SUMMARY Wolf Turcios Admitted: 12/13/2017 Discharge [...] is homeless) and emphysema may be contributing. Learning Administrator consulted. Nutrition supplements ordered TID with meals. [...] tablet, Refills: 0 Physician(s) Follow Up: [facility] [place] [facility] [address] [address] Follow up Please call if you have any hospital-related questions [facility] [address] [facility] [address] [facility] [id number] Follow up Yadiel Chowdhury MD [address] [facility] [place] [address] [address] Follow up Please call to arrange an [...] different from the original. Coni Schmitz DO [facility] Hospitalists MEDICAL OBSERVATION DISCHARGE SUMMARY Wolf [...] different from the original. Coni Schmitz DO [facility] Hospitalists MEDICAL OBSERVATION DISCHARGE SUMMARY Wolf [...] Ambriz CNP - 07/19/2020 12:37 PM EST [facility] DISCHARGE SUMMARY Wolf Turcios Admitted: 07/17/2020 Discharge [...] Aspiration PNA Reported choking on nicorette gum [employer] Recently was treated for PNA and has [...] 4 g, Refills: 11 Physician(s) Follow Up: aKrma Mark, AVIONICS SYSTEMS ENGINEER [address] [facility] [phone] Schedule an appointment as soon as possible for a visit in 1 week(s) To notify your doctor of your hospital stay. Phil Borjas MD [address] [phone] Follow up Outpatient referral has been made for you to discuss outpatient EGD with a GI specialist as you reported having a sensation something was stuck in your throat Ariel Mcintosh II, MD [address] [facility] [place] [address] [address] Schedule an appointment as soon as possible [...] Dean PA-C - 08/13/2020 1:25 PM EST [facility] DISCHARGE SUMMARY Wolf Turcios Admitted: 08/08/2020 Discharge [...] daily . Physician(s) Follow Up: Karma Mark, AVIONICS SYSTEMS ENGINEER [address] [facility] [phone] Follow up Condition [...] be sent through Care Everywhere. * COPD ([place]) * COPD Exacerbation Plan ([place]) * Cervical Myelopathy: Surgery: Pre-op ([place]) * Cervical Disc Disease ([place]) * Cervical Spinal Stenosis ([place]) in this encounter* Nilsa Quigley PA-C - 01/10/2018 Please continue to use your inhaler and breathing treatments at home. Please follow up with the transitional care clinic. Please return to the emergency department with any new or worsening symptoms or any concerns you may have. The following attachments cannot be sent through Care Everywhere. * SOB (Shortness of Breath) ([place]) in this encounter* Discharge Instr - Care Coordination - Coni Schmitz DO - 01/10/2017 5:09 PM EDT It is recommended that you take aspirin daily to prevent any further TIA and avoid any drug use. Please follow up with the clinic list given by the social work coordinator to establish with a doctor. It is important that you take a mediation to lower your cholesterol such as Lipitor. This medication is cheaper at [facility]. * Coni Schmitz DO - 01/10/2017 Transient [...] for any reason. Do not take any pjem-jnr-yixhbza medicines or herbal products without talking to [...] Log into your personal health record on https://Spectra Analysis Instruments.Lionexpo and enter I231 in the Education box to learn more about Transient Ischemic Attack: Care Instructions. Current as of: November 10, 2015 Content Version: 11.2 8643-1674 IT'SUGAR. Care instructions adapted under license by your healthcare professional. If you have questions about a medical condition or this instruction, always ask your healthcare professional. IT'SUGAR disclaims any warranty or liability for your use of this information. in this encounter* Discharge Instr - Care Coordination - Coni Schmitz DO - 01/10/2017 5:09 PM EDT It is recommended that you take aspirin daily to prevent any further TIA and avoid any drug use. Please follow up with the clinic list given by the social work coordinator to establish with a doctor. It is important that you take a mediation to lower your cholesterol such as Lipitor. This medication is cheaper at [facility]. * Coni Schmitz DO - 01/10/2017 Transient [...] for any reason. Do not take any tmoy-rdj-poqobde medicines or herbal products without talking to [...] Log into your personal health record on https://Spectra Analysis Instruments.Lionexpo and enter I231 in the Education box to learn more about Transient Ischemic Attack: Care Instructions. Current as of: November 10, 2015 Content Version: 11.2 5316-1746 IT'SUGAR. Care instructions adapted under license by your healthcare professional. If you have questions about a medical condition or this instruction, always ask your healthcare professional. IT'SUGAR disclaims any warranty or liability for your use of this information. in this encounter* Attachments The following attachments cannot be sent through Care Everywhere. * COPD Exacerbation Plan ([place]) documented in this encounter* Discharge Instr - [...] Passing out. After you call 911, the pantograph operator may tell you to chew 1 [...] Log into your personal health record on https://Spectra Analysis Instruments.Lionexpo and enter A848 in the Education box to learn more about Fainting: Care Instructions. Current as of: December 01, 2018 Content Version: 12.3 2925-0251 DotGT, QualMetrix. Care instructions adapted under license by your healthcare professional. If you have questions about a medical condition or this instruction, always ask your healthcare professional. DotGT, Incorporated disclaims any warranty or liability for your use of this information. documented in this encounter* Instructions* Lotus Cruz CNP - 01/14/2020 Seek medical attention if you have worsening symptoms or other concerns. Please follow up with your family doctor or one of your choosing. You may find a provider through the [facility] Physician Referral Service by calling [phone]) or by visiting [email or web address] Wolf, Thank You for choosing [facility]! You were provided with a new spacer for your inhalers. * Attachments The following attachments cannot be sent through Care Everywhere. * Smoking: Stopping ([place]) * SOB (Shortness of Breath) ([place]) * COPD: General Info ([place]) documented in this encounter* Discharge Instr - [...] are accepted at virtually every [place] pharmacy. [place] [place] does not accept good rx coupons for pain medication (narcotics) at this time. Your pharmacist will know how to enter the codes on the coupon to pull up the lowest discount available. How do I use a GoodRx coupon? It s similar to using a coupon at a grocery store. Simply print the coupon and bring it with you [facility] when you pick and shovel worker your prescription. The pharmacist will enter the numbers on the coupon into their system to find the discount. Don t have a printer or want to save paper and ink cartridges? You can show the coupon on your phone by: A) Sending the coupon to yourself via email or text B) Or using the mobile asher C) Visiting our mobile website www.StartDate Labs What if I have insurance or Medicare? [...] insurance. * Additional Instructions* Ramiro Lisarodrigue Santana, AVIONICS SYSTEMS ENGINEER - 04/12/2020 Chronic Obstructive Pulmonary Disease (COPD): [...] it properly. Do not take any vitamins, jvai-otc-wynfdzr medicine, or herbal products without talking to [...] exercise. Take short rest breaks when doing community health program coordinator and other activities. Learn breathing methods such [...] Log into your personal health record on [email or web address]://[email or web address].[email or web address] and enter X915 in the Education box to learn more about Chronic Obstructive Pulmonary Disease (COPD): Care Instructions. Current as of: August 01, 2019 Content Version: 12.6 IT'SUGAR. Care instructions adapted under license by your healthcare professional. If you have questions about a medical condition or this instruction, always ask your healthcare professional. IT'SUGAR disclaims any warranty or liability for your [...] through Care Everywhere. * COPD Exacerbation Plan ([place]) documented in this encounter* Attachments The following attachments cannot be sent through Care Everywhere. * COPD Exacerbation Plan ([place]) documented in this encounter* Attachments The following attachments cannot be sent through Care Everywhere. * Fall Prevention ([place]) documented in this encounter* Instructions* Kaitlynn Ambriz [...] it properly. Do not take any vitamins, covx-maj-ezpsikg medicine, or herbal products without talking to [...] exercise. Take short rest breaks when doing community health program coordinator and other activities. Learn breathing methods such [...] Log into your personal health record on [email or web address]://[email or web address].[email or web address] and enter X915 in the Education box to learn more about Chronic Obstructive Pulmonary Disease (COPD): Care Instructions. Current as of: August 01, 2019 Content Version: 12.7 IT'SUGAR. Care instructions adapted under license by your healthcare professional. If you have questions about a medical condition or this instruction, always ask your healthcare professional. IT'SUGAR disclaims any warranty or liability for your [...] liquids, or puree certain foods in a pipe smoker machine operator. To help with pneumonia Take your antibiotics [...] chances of quitting for good. Take an hbfo-wcu-mmdxuyn pain medicine, such as acetaminophen (Tylenol), ibuprofen [...] Log into your personal health record on https://WorkHoundhart.Lionexpo and enter D757 in the Education box to learn more about Aspiration Pneumonia: Care Instructions. Current as of: August 01, 2019 Content Version: 12.7 IT'SUGAR. Care instructions adapted under license by your healthcare professional. If you have questions about a medical condition or this instruction, always ask your healthcare professional. IT'SUGAR disclaims any warranty or liability for your use of this information. documented in this encounter* Discharge Instr - AVS First Page* Kaitlynn Ambriz CNP - 07/26/2020 10:15 AM EST YOU ARE TO LIMIT THE SALT IN YOUR DIET YOU ARE TO TAKE YOUR hydrochlorothiazide DAILY TO HELP WITH YOUR LEG SWELLING AT HOME * Additional Instructions* Kaitlynn Ambriz, AVIONICS SYSTEMS ENGINEER - 07/26/2020 Leg and Ankle Edema: Care [...] Log into your personal health record on [email or web address]://[email or web address].[email or web address] and enter N696 in the Education box to learn more about Leg and Ankle Edema: Care Instructions. Current as of: August 03, 2019 Content Version: 12.7 IT'SUGAR. Care instructions adapted under license by your healthcare professional. If you have questions about a medical condition or this instruction, always ask your healthcare professional. IT'SUGAR disclaims any warranty or liability for your [...] it properly. Do not take any vitamins, xmnh-mcs-ipqrrfa medicine, or herbal products without talking to [...] exercise. Take short rest breaks when doing community health program coordinator and other activities. Learn breathing methods such [...] Log into your personal health record on https://Spectra Analysis Instruments.Lionexpo and enter X915 in the Education box to learn more about Chronic Obstructive Pulmonary Disease (COPD): Care Instructions. Current as of: August 01, 2019 Content Version: 12.7 IT'SUGAR. Care instructions adapted under license by your healthcare professional. If you have questions about a medical condition or this instruction, always ask your healthcare professional. IT'SUGAR disclaims any warranty or liability for your [...] You may find a provider through the [facility] Physician Referral Service by calling [phone]) or by visiting [email or web address] Seek medical attention immediately if you have worsening symptoms or other concerns. Thank You for choosing us for your Emergency Care! * Attachments The following attachments cannot be sent through Care Everywhere. * Fainting ([place]) documented in this encounter* Discharge Instr - Care Coordination* [place] Dc RN - 08/09/2020 8:01 AM EST [facility]: *For more information or other resources, visit [facility]'s website: [email or web address] or call: [phone] [address] 58 Units Type: Senior/Affordable 1 Bedroom [place] [address] [place] [address] [employer]. [facility] [phone] http://www.kiowa county memorial hospitalUniversity of [place].Slinky Nadia is a senior community located in [place], [place]. [place] offers 1 bedroom apartments to residents 62 or older. [facility] 75 Units Type: Affordable [facility] Housing [address] [place], [place] [address] 1 & 2 Bedroom Garden Style [employer]. [facility] [phone] http://www.kiowa county memorial hospitalUniversity of Maryland.org [facility] is a sprawling community featuring 1 and 2 bedroom apartments dedicated to jail at its finest. [facility] 53 Units Type: Affordable Family [address] [place], [place] [address] 2 Bedroom Townprattville baptist hospitales with unfinished basements Netchemia [phone] http://www.Seen Digital Media, Inc. [facility] is an affordable housing development located on the east side of [place]. Easy access to ARMENTA transportation. Holmdel Macon 63 Units Type: Senior/Affordable 1 Bedroom [place] [address] [place] [address] BrightQube [phone] http://www.Tencent/ Holmdel Macon is a senior community located on the eastside of [place], [place]. [facility] offers 1 bedroom cottage and garden style apartments to residents 62 or older. Scott Maya 204 Units Type: Market Rate Family Housing [address] [place], [place] [address] 1-2 Bedroom Garden Style Property Management Co. Clandestine Development [phone] http://www.Cloudary Built in 2014, the property boasts 1 and 2 bedroom garden style apartments. Scott Maya is a marketrate property offering workforce rents. Ascencion Weber 50 Units Type: Family/Affordable [address] [place] [address] Property Management Co. CircleCI Office Located at [facility] 2-3 Bedroom Townhomes, 2 Bedroom Handicap Accessible Garden Style-Flats [phone] http://www.Tencent/ Ascencion Estlarry is an affordable housing development in the [facility] Area. Vincentian Velásquez 72 Units Type: Affordable Family Housing [address] [place], [place] [address] 2-3 Bedroom Garden and Townhomes SpeedTax Management Co. Foods You Can [phone] http://www.Seen Digital Media, Inc. Vincentian Velásquez is an affordable housing development located on the south side of [place] offering spacious apartment homes to area families. Serafin Sierra 100 Units Type: Affordable Senior Housing [address] [place], [place] [address] 1 Bedroom Garden Style SpeedTax Management Co. [facility] [phone] http://www.[facility].org Serafin Sierra is an affordable housing development for elderly residents 62 years and older. [place]anc[place] is located east of [facility] between [address] [place] [address] and [facility]. Kayla Square Click to view more 56 Units Family/Affordable 2 Bedroom Townhomes [address] [place] [address] Udacity. CircleCI [phone] http://www.Tencent/ Kayla [facility] is an affordable housing development on the northeast side [facility] between [facility] and [facility]. [place] at [facility] 87 Units Type: Family/Mixed Income 1-3 Bedroom Townhouses and Garden-Style Flats [address] [place] [address] Property Management Co. [facility] [phone] http://www.Afrigator Internet.Way2Pay/ [facility] 71 Units Type: Affordable Senior Housing [address] [place], [place] [address] 1 bedroom Garden Style Property Management Co. TerraPerks [phone] http://Organics Rx/ [facility] is an affordable housing development for residents age 62 and over. [facility] offers one-bedroom units. [place] 95 units Type: Affordable Family Housing [address] [place], [place] [address] 2-4 Bedroom ranch style and Townhomes some with garages Property Management Co. Foods You Can [phone] http://www.Seen Digital Media, Inc. [place] is an affordable housing development in [place]. [address] 100 Units Type: Family/Mixed Income 1, 2, and 3 Bedroom Lofts and Townhomes [address] [place] [address] Property Management Co. [place] [employer] [phone] http://www.Gemino Healthcare Finance/ [facility] 80 Units Type: Family/Affordable 2-3 Bedroom Townhouses [address] [place] [address] Property Management Co. WhitlashSynthego [phone] http://www.Tencent/ [facility] is an affordable housing development on the northeast side [facility] between [facility] and [facility]. [facility] 104 Units Type: Senior/Affordable 1 Bedroom [place] Flats [address] [place] [address] Property Management Co. [facility] [phone] http://www.[facility] health bryan hospitalTrovixsharp mary bir[facility] hospital for womenQRcao.org [employer] 148 Units Type: Affordable Family Housing [address] [place], [place] [address] 2 & 3 Bedroom [facility] Property Management CoChannel M [phone] http://www.Seen Digital Media, Inc. [employer] is an affordable housing development on the west side of [place] just south of the [address] and [address]. Rosestanislaw 230 Units Type: Family/Affordable 1-4 Bedroom Townhouses and Single-Family Homes [address] [place], [place] Property Management Co. WhitlashLeap Commerce [facility] [phone] http://www.Tencent/ [facility] is a 230-unit community blending 160 townhouses with 70 single-family homes. Units are available with up to four bedrooms. The property is situated in the [facility]. Garret Martinez 116 Units Type: Affordable Family Housing [address] [place], [place] [address] 2 & 3 Bedroom [facility]fair[facility] Property Management Co. [facility] [phone] http://www.YellowSchedulesaint francis hospital [facility].org Garret Martinez is an affordable housing development adjacent to the [facility]. Its boundaries are [facility] ([facility]), [facility] ([place]), [facility] ([place]) and[facility] ([facility]). [facility] Apartments 120 Units Type: Affordable Family Housing [address] [place], [place] [address] 1 Bedroom Garden Style Property Management Co. The BookMyShow [phone] http://Organics Rx/ [facility] is designated for elderly residents 62 years of age or older. East WarehamLessonwriter 86 Units Type: Family/Affordable 2-3 Bedroom Townhouses and Garden-Style Flats [address] [place] [address] Property Management Co. [facility] Located at [facility] ([address] [place] [address]) [phone] http://www.Gemino Healthcare Finance/ AllofMe 86 garden and townhouse style units. VuPoynt Media Group is an affordable housing development located in [facility]; its boundaries are [place] ([place]), [facility] (east) and [facility] (west). [facility] 137 Units Type: Affordable Family Housing [address] [place], [place] [address] 2-4 Bedroom [facility]fair[facility] hospital with unfinished basements Property Management Co. [facility] [phone] http://www.Cube CleanTech.org Donny Meadwos is an affordable housing development located on the near east side of [place] adjacent to the [facility]. Donny Meadows is comprised of a mix of duplex and single-family homes. Transportation options include convenient access to public transportation on the ARMENTA bus line. Fatemeh Morelos 28 Units Type: Mixed Income 2, 2+, and 3 Bedroom Townhomes [address] [place] [address] Property Management Co. [facility] Located at [facility] ([address] [place] [address]) [phone] http://www.Gemino Healthcare Finance/locations/fatemeh-guera/ The Guera is located in the historic [facility] in [facility] side. Usman Sierra 100 Units Type: Affordable Senior Housing [address] [id number] 1 Bedroom Garden Style SpeedTax Management Co. Foods You Can [phone] http://www.Seen Digital Media, Inc. Usman Sierra is an affordable housing development built in the [facility] [place] is conveniently located on the west side of [facility] between [facility] and [facility]. Usman s three-story brick building houses 100 single-bedroom elderly units. DEPARTMENT OF JOBS AND FAMILY SERVICES SNAP, Medicaid, unemployment,child supportCall for locations, J.O.I.N. Assistance with utilities, glasses, prescriptions [address] [facility], M F 10-11:30 & 12:00 [place] [employer] Food, health care, childcare, energy assistance,veterans, etc.Call for locations: SOCIAL SECURITY ADMINISTRATION M,T,W,F-9am-4pm W 9am-[phone] [phone] [facility] [phone] [facility] [address] [facility] Shower and Laundry [address], [phone]-[phone] Wed & Fri ? EVICTION ASSISTANCE [facility] Help for tenants facing eviction by working w/landlord to maintain their -[phone] luke's hospitalSLIC games.Way2Pay ? FREE MEALS AISHWARYA PRESBYTERIAN [address], Sat 11:30 1:30 [facility] [address], W[place], Tue, , Fri - 7:00Wed. lunch 12:00-2:00 [facility], K, T, Th - 5:30, W 6:00 COMMUNITY KITCHEN [address] [facility], R-Sat - 8:30-9:30 & M-Sat - 11:30-1:00 FLAQUITA MISSION (MEN) [address] [facility], Q F-6:30 - 7:15 Sat & Sun - 8:30-9:30Every Day - 12:30 1:30 &6:45 7:45 FLAQUITA MISSION (WOMAN & CHILDREN) [address] [facility], Ghgvd Day - 7:30 8:15,11:30 12:15 & 5:30 6:15 [facility] KITCHEN [address], M F - 10:30 12:30 [facility] [address] [facility], Every Thursday at Noon [facility], F - 12:00 2:00 [facility] [address] , Kts. 6:30 8:45 & T 9:00 11:00 [facility] [address], M F - 10:30 2:00 [facility] COMM. KITCHEN [address] [place] [address] , M F - 8:30am - 9:30am & 11:30-12:30 [facility] [address] [facility], M F - 1:30 3:30 [facility] [address] [place], P Sat - 8:00 10:00T, W, Th, Sat - 12:00 2:00F Pizza - 5:00 6:00 [facility] [address], Inx. - Fri. - 11:00 - 12:30 [facility] [address] Thursday - 1:30 [employer] PR[employer]ER [facility]IST[facility]ES [address], D, T, - 11:00 1:00 FEED MY SHEEP MINISTRIES [address] [phone] 6:30pm FEED MY SHEEP AT HandUp PBCNORTHERN LIGHT BLUE HILL HOSPITALSense Platform [facility]IGHT [facility] [address] , Qlenvlaz at 6:30pm [facility] [address] - 6:00pm - 7:00pmSunday - 9:30am - 10:15am [facility] 100 The Medical Centervd11:00-2pm Saturdays [phone] [facility] [address][phone]- 5:30pm, Sun 10:00am ANGELIKA 25:35 MINISTRIES bible study & dinner Fri: 7pm-8:30pm [address]. ? CLOTHING & [facility] [address] Qjotmrj - 9 11:15 Thursday 6:30-8:30 [facility] [address] Q, Th, Sat - 10:00 12:30Weds - 1:00 - 3:30 Fri - 3:00 5:30Fresh Produce: T - 2:00 - 3:00Weds - 10:00 - 11:00 [facility] [address] K - 10:00 12:00(doors open at 9:30)Th - 3:00 5:00(doors open at 2:30) Sat - 11:30-1:30 [facility] every Sat. 11:00-12:00 [facility] LICEA UGO [address] [facility], Chd, Tu, Th10:00 am - Noon FREE MEALS AISHWARYA [facility]BY[facility] [address], Sat 11:30 1:30 [facility], Mon, Tue, Thur, Fri - 7:00 Wed. lunch 12:00-2:00 [facility], M, T, Th - 5:30, W 6:00 [facility] [address] [facility], M Sat - 8:30 9:30 M - Sat - 11:30 1:00 [facility]MEN) [address] [facility], M F - 6:30 - 7:15 Sat & Sun - 8:30 9:30 Every Day - 12:30 1:30 & 6:45 7:45 [facility] (WOMAN & CHILDREN) [address] [facility], Every Day - 7:30 8:15, 11:30 12:15 & 5:30 6:15 [facility] [address], M F - 10:30 12:30 [facility] [address] [facility], Every Thursday at Noon [facility], F - 12:00 2:00 [employer] [facility] [address] , Sun. 6:30 8:45 T 9:00 11:00 [facility] [address], M F - 10:30 2:00 [facility] KITCHEN [address] [place] [address] , M F - 8:30am - 9:30am & 11:30 12:30 [facility] [address] [facility], M F - 1:30 3:30 [facility] [address] [place], T Sat - 8:00 10:00 T, W, , Sat - 12:00 2:00 F Pizza - 5:00 6:00 [facility] [address], Mon. - Fri. - 11:00 - 12:30 [facility] [address] [facility] Thursday - 1:30 [facility] [address], M, T, - 11:00 1:00 [facility] [employer] [facility] [address] [facility]. [phone] Tuesdays 6:30pm FEED MY SHEEP AT [employer] [facility] [address] [facility], Tuesdays at 6:30pm [facility]. - 6:00pm - 7:00pm Thursday - 9:30am - 10:15am [facility] [address] [facility] parking lot 11:00-1:30pm Saturdays [phone] [facility] [address][phone] - 5:30pm, Sun 10:00am ? [facility] [address] [facility] [address] Thursday - 9 11:15 Thursday 6:30-8:30 [facility] [address] T, , Sat - 10:00 12:30 Weds - 1:00 - 3:30 Fri - 3:00 5:30 Fresh Produce: T - 2:00 - 3:00 Weds - 10:00 - 11:00 [facility] [address] M - 10:00 12:00(doors open at 9:30) - 3:00 5:00(doors open at 2:30) Sat - 11:30-1:30 Lunch served every Sat. 11:00-12:00 [facility] [facility], Thu, , 10:00 am - Noon [employer] Utilities and rent [address] [facility]. [phone] Mon & Weds 10:00am - 3:00pm DEPARTMENT OF JOBS AND FAMILY SERVICES SNAP, Medicaid, unemployment, child support Call for locations, [facility] REENTRY TASK FORCE Ask for Reentry Task Force Help people coming out of [facility] [facility] find resources [phone] [facility] SUICIDE HOTLINE [phone] J.O.I.N. Assistance with utilities, glasses, prescriptions [address] [facility], M F 10:00 11:30 & 1:00 2:00 [place] [employer] Food, health care, childcare, energy assistance,veterans, etc. Call for locations: [employer] M,T,W,F-9am-4pm W 9am-12pm [address] [phone] [facility] [address] [facility] Jadon [facility] Shower [employer] Laundry Services [address], 9:30am - 1:00pm [facility] Help for tenants facing eviction by work- ing w/landlord to maintain their housing [phone] ext. 13 Conferize documented in this encounter Assessments Diagnosis Chronic [...] exacerbation of chronic obstructive pulmonary disease (COPD) ([facility]) Obstructive chronic bronchitis with exacerbation [...] not specified Diagnosis COPD with acute exacerbation ([facility]) Diagnosis Epididymal cyst- Primary Other specified disorder of male genital organs COPD exacerbation ([facility])- Primary Obstructive chronic bronchitis with [...] organism, unspecified whether acute organ dysfunction present ([facility]) Acute respiratory failure with hypoxia ([facility]) COPD exacerbation ([facility]) Obstructive chronic bronchitis with exacerbation Chest pain, atypical Nausea and vomiting, intractability of vomiting not specified, unspecified vomiting type Cigarette nicotine dependence without complication Cocaine use disorder ([facility]) Adjustment disorder with depressed mood Substance use disorder Bilateral hip pain Pain in joint, pelvic region and thigh Epididymal cyst Other specified disorder of male genital organs Diagnosis Hydrocele, unspecified hydrocele type- Primary Diagnosis Acute exacerbation of chronic obstructive pulmonary disease (COPD) ([facility])- Primary Obstructive chronic bronchitis with exacerbation Tachycardia Unspecified tachycardia Diagnosis Hydrocele- Primary Hydrocele, unspecified hydrocele type- Primary Epididymal cyst Other specified disorder of male genital organs Hydrocele, unspecified hydrocele type Diagnosis Chronic obstructive pulmonary disease, unspecified COPD type ([facility])- Primary Multifocal pneumonia Tobacco use [...] exacerbation of chronic obstructive pulmonary disease (COPD) ([facility]) Obstructive chronic bronchitis with exacerbation Bilateral edema of lower extremity Diagnosis Syncope, unspecified syncope type- Primary Diagnosis Pneumonia of left lung due to infectious organism, unspecified part of lung Sepsis, due to unspecified organism, unspecified whether acute organ dysfunction present ([facility]) Acute respiratory failure, unspecified whether with hypoxia or hypercapnia (HCC) COPD (chronic obstructive pulmonary disease) ([facility]) Chronic airway obstruction, not elsewhere [...] Dugan, RAY - 12/21/2017 11:01 AM EDT [facility] 48 hour Follow up Phone Call Introduction: jovi Bull I speak with PT NAME. My name is YOUR NAME from [facility]. I know you were just in [...] the spiriva every day Go to the [facility] ([address] [place] [address] across from the Emergency department) to have the xray of your hips and pelvis done. in this encounter* Patient Instructions* Adelina Multani MA - 01/17/2020 8:58 AM EDT Please call Surgery Clinic NurseMariama [phone] Option 7 for any questions related to your Surgery. You may also leave a message for your doctor through your [employer] account. For urgent needs, call [phone] Option # 4 to speak with the Patient Oyster Floater. For urgent calls when the office is closed, call the office at [phone]. You will be connected with [employer] personnel who will route your comments to the patient portal concierge General Surgery Resident. documented in this encounter* Patient Instructions* Wally Oswald MD - 06/19/2020 11:15 AM EST Preoperative Medication Instructions In preparation for surgery please continue all of your current medications with the following changes: Wolf Turcios Home Medication Instructions Prior to Surgery NUNO:[id number] Printed on:06/19/20 7752 Medication Information Take last dose on Take [...] planning on completing it. Please notify your deliverer pharmacy of this. Banophen 25 mg capsule Take [...] medications that contain aspirin, such as Michelle Mary Esther, Pepto- Bismol, Anacin), antiinflammatory medications such as Advil, Motrin, Ibuprofen, Naproxen, Aleve, Michelle Mary Esther, Pepto-Bismol, Anacin, Diclofenac, Voltaren, Daypro, Etodolac, Ketoprofen, Meloxicam, Piroxicam, Relafen, Nabumetone, etc. Also discontinue Vitamin C, Vitamin E, Belleville-3 Fatty Acid, Fish Oil or Lovaza, as [...] Turcios Home Medication Instructions Prior to Surgery NUNO:[id number] Printed on:06/19/20 0938 Medication Information Take last dose on Take [...] planning on completing it. Please notify your deliverer pharmacy of this. Banophen 25 mg capsule Take [...] medications that contain aspirin, such as Michelle Mary Esther, Pepto- Bismol, Anacin), antiinflammatory medications such as Advil, Motrin, Ibuprofen, Naproxen, Aleve, Michelle Mary Esther, Pepto-Bismol, Anacin, Diclofenac, Voltaren, Daypro, Etodolac, Ketoprofen, Meloxicam, Piroxicam, Relafen, Nabumetone, etc. Also discontinue Vitamin C, Vitamin E, Belleville-3 Fatty Acid, Fish Oil or Lovaza, as [...] Turcios Home Medication Instructions Prior to Surgery NUNO:[id number] Printed on:06/19/20 1115 Medication Information Take last [...] planning on completing it. Please notify your deliverer pharmacy of this. Banophen 25 mg capsule Take [...] medications that contain aspirin, such as Michelle Mary Esther, Pepto- Bismol, Anacin), antiinflammatory medications such as Advil, Motrin, Ibuprofen, Naproxen, Aleve, Michelle Mary Esther, Pepto-Bismol, Anacin, Diclofenac, Voltaren, Daypro, Etodolac, Ketoprofen, Meloxicam, Piroxicam, Relafen, Nabumetone, etc. Also discontinue Vitamin C, Vitamin E, Belleville-3 Fatty Acid, Fish Oil or Lovaza, as [...] Turcios Home Medication Instructions Prior to Surgery NUNO:[id number] Printed on:06/19/20 1115 Medication Information Take last [...] planning on completing it. Please notify your deliverer pharmacy of this. Banophen 25 mg capsule Take [...] medications that contain aspirin, such as Michelle Mary Esther, Pepto- Bismol, Anacin), antiinflammatory medications such as Advil, Motrin, Ibuprofen, Naproxen, Aleve, Michelle Mary Esther, Pepto-Bismol, Anacin, Diclofenac, Voltaren, Daypro, Etodolac, Ketoprofen, Meloxicam, Piroxicam, Relafen, Nabumetone, etc. Also discontinue Vitamin C, Vitamin E, Belleville-3 Fatty Acid, Fish Oil or Lovaza, as [...] Turcios Home Medication Instructions Prior to Surgery NUNO:[id number] Printed on:06/19/20 1113 Medication Information Take last [...] planning on completing it. Please notify your deliverer pharmacy of this. Banophen 25 mg capsule Take [...] medications that contain aspirin, such as Michelle Mary Esther, Pepto- Bismol, Anacin), antiinflammatory medications such as Advil, Motrin, Ibuprofen, Naproxen, Aleve, Michelle Mary Esther, Pepto-Bismol, Anacin, Diclofenac, Voltaren, Daypro, Etodolac, Ketoprofen, Meloxicam, Piroxicam, Relafen, Nabumetone, etc. Also discontinue Vitamin C, Vitamin E, Belleville-3 Fatty Acid, Fish Oil or Lovaza, as [...] Turcios Home Medication Instructions Prior to Surgery NUNO:[id number] Printed on:06/19/20 1115 Medication Information Take last [...] planning on completing it. Please notify your deliverer pharmacy of this. Banophen 25 mg capsule Take [...] medications that contain aspirin, such as Michelle Mary Esther, Pepto- Bismol, Anacin), antiinflammatory medications such as Advil, Motrin, Ibuprofen, Naproxen, Aleve, Michelle Mary Esther, Pepto-Bismol, Anacin, Diclofenac, Voltaren, Daypro, Etodolac, Ketoprofen, Meloxicam, Piroxicam, Relafen, Nabumetone, etc. Also discontinue Vitamin C, Vitamin E, Belleville-3 Fatty Acid, Fish Oil or Lovaza, as [...] have insurance. CLAUDIO printed out information on [facility] clinics and gave to Pt. CLAUDIO also provided Pt with the physician referral telephone number for [facility]. CLAUDIO met with Pt at bedside and gave PT resources. Pt has no other questions or concerns at this time. in this encounter* Tiffanie Deal RN - 01/10/2017 6:30 PM EDT Patient is alert and oriented x 4. Discharge instructions giving, patient verbalized understanding.Patient refused wheelchair escort. Discharge home, accompanied by patient's friend(Santos). * JohngabiValencia andrade, BULK DELIVERY DRIVER EMAIL DESIGNER - 01/10/2017 4:48 PM EDT SW consulted to provide Pt with a list of primary care physicians. Pt doesn't have insurance. SW printed out information on [facility] clinics and gave to Pt. SW also provided Pt with the physician referral telephone number for [facility]. SW met with Pt at bedside [...] Ambriz CNP - 11/03/2019 12:30 PM EDT [facility] DAILY PROGRESS NOTE Assessment and Plan Wolf [...] any further needs at this time. Recommendation: [facility] available for further d/c needs as indicated [...] III, MD - 12/12/2019 9:55 AM EDT [facility] [address] [place] [address] Patient Name: Wolf Turcios Patient Age: 59 y.o. Patient : 1960 Date: 12/12/19 Progress Note Initial Visit Chief Complaint: Chief Complaint Patient presents with Right Hip - Pain Pain R hip pain, referred by PCP, xrays in [facility], was told he is bone on bone, [...] file Gets together: Not on file Attends muslim service: Not on file Active member of [...] 12/11/2020 Scheduling Instructions: OK to schedule at [facility] and all ambulatory sites Fax script to: [facility]- [phone] [facility]-[phone] [phone] [facility] - [phone] Order Specific Question: Reason for Exam: Answer: [...] can allegedly stay with his daughter in [place] however we will do a social medical [...] Date Asthma COPD (chronic obstructive pulmonary disease) ([facility]) Emphysema/COPD ([facility]) Essential hypertension 01/10/2017 Home Medications: [...] file Gets together: Not on file Attends muslim service: Not on file Active member of [...] observation level of care. I had a [id number] encounter with the patient on the day of discharge which included an appropriate physical exam. Discharge instructions and follow-up care were discussed in person with the patient. documented in this encounter* Angelika Hermosillo MD - 04/21/2020 9:20 AM EST [facility] DAILY PROGRESS NOTE Assessment and Plan Perpetual [...] Spent in Direct Patient Care: 30 Narrative: Concrete Pipe Making Machine Operator brought L shirt and size 30/32 pants in preparation for pt's discharge. Patients Response to Pastoral Care: Appeared to be well-engaged Planning for Future Visits: SANDY Lemon M.Div. Database Management Specialist, [facility] * Devon Villareal PTA - [...] Modified independence(HOB elevated) Sit to Supine: Modified [place](HOB elevated) Skilled Intervention: Educated pt on pursed lip breathing during exertion Transfers Sit to Stand: Stand by assistance Clerk Supervisor: 1 person, Gait belt Skilled Intervention: Min [...] length to normalize tracy. Cues for relaxed facilitator on AD and for decreased shoulder elevation [...] disposition). 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 Patient presented to [facility] with multifocal pneumonia. Therapy recommendations currently support fci facility placement at discharge. Physical therapy: up to 5 days per week, [facility] 17; Occupational therapy: 21. Patient is in agreement with skilled facility placement. Action: SW following precert pending at [facility]. Addendum: CLAUDIO left a voicemail for Chetna at [facility] regarding precert status. Addendum: CLAUDIO received a voicemail from Chetna at [facility]. Chetna reports that this patient can be admitted today, 04/20. CLAUDIO messaged [facility] to arrange transport. Per physician, this patient is ready for discharge. Addendum: CLAUDIO arranged transport for 04/21/20 between 7pm-8pm with [facility]. CLAUDIO left a voicemail for Chetna, liaison with the [facility] to alert that this patient will be transported 04/21. [facility] to complete HENS. Addendum: Chetna confirmed receipt of message. This patient can be admitted into the [facility] on 04/21. Addendum: Per PM rounds, this SW met with patient at bedside to discuss plans to discharge to [facility]. SW provided this patient with the address. Patient requested that SW contact pastoral care for clothing. SW left a [employer] message for Concrete Pipe Making Machine Operator requesting clothing to room 802. SW explained that this patient will be going to SNF for rehab. Patient is agreeable at this time. Addendum: Per [facility], HENS has been complete. Recommendation: SW to follow for discharge planning. * Katina Hollis CNP - 04/20/2020 9:02 AM EST Pulmonary Progress Note Patient Name: Wolf Turcios Admit Date: MR #: [id number] : 1960 Wolf Turcios is a 59 [...] this patient discussed with Dr. Avila Hollis, AVIONICS SYSTEMS ENGINEER 04/20/20 9:02 AM Associated attestation - Ramon [...] Home Care Services: No Anticipated Facility Type: [facility] facility Anticipated Discharge Plan Anticipated Facility Type: [facility] facility Situation/Background: Patient is from home. Patient presented to [facility] with multifocal pneumonia. Therapy recommendations currently support fci facility placement at discharge. Physical therapy: up to 5 days per week, [facility] 17; Occupational therapy: 21. Patient is in agreement with skilled facility placement. Action: SW awaiting precert. Recommendation: SW to follow for discharge plan. * Bekah Lemon - 04/19/2020 11:00 AM EST Spiritual Care Progress Note Completed by: Bekah Lemon Person(s) Present During this Visit: Patient Time Spent in Direct Patient Care: 45 Narrative: Concrete Pipe Making Machine Operator visited pt while rounding on unit. Pt shared an eagerness to tell his story. Concrete Pipe Making Machine Operator provided pastoral care as described below. Pastoral Care will remain available 29/12 upon request. Patients Response to Pastoral Care: Appeared to be well-engaged Planning for Future Visits: PRN, Pt requested on-going visits Patient's Spiritual Needs Assessment Sources of Connection Unable to Determine Beliefs and Practices Image of the [place] Role of [place] in Patient's Illness Spiritual Wellness - Activities and Resources Grief Assessment Expressed / Stated Feelings Attitude Towards Own Illness Understanding of Patients Coping Mechanisms Spiritual Diagnosis Awareness of the Sacred Facilitated Interventions Active Listening, Life Review, Validated Emotions/Feelings Spiritual and Emotional Outcomes Appreciative Resources Provided Bereavement Resources Spiritual Plan of Care Continue Healing Process Patient's Faith Needs Assessment Faith Connection Not Discussed Faith Home Confucianist Orthodox Affiliation Local Pentecostalism Name Faith Resources Faith Rituals Faith Materials Provided Expressed Outcomes Expressed Gratitude Bekah Lemon M.Div. Database Management Specialist, [facility] * Katina Hollis CNP - 04/19/2020 9:39 AM EST Pulmonary Progress Note Patient Name: Wolf Turcios Admit Date: MR #: [id number] : 1960 Wolf Turcios is a 59 [...] Hermosillo MD - 04/19/2020 9:35 AM EST [facility] DAILY PROGRESS NOTE Assessment and Plan Perpetual [...] Practices Image of the Brigitte Role of [place] in Patient's Illness Spiritual Wellness - Activities and Resources Grief Assessment Expressed / Stated Feelings Attitude Towards Own Illness Understanding of Patients Coping Mechanisms Spiritual Diagnosis Facilitated Interventions Spiritual and Emotional Outcomes Resources Provided Bereavement Resources Spiritual Plan of Care Patient's Faith Needs Assessment Faith Connection Faith Home Orthodox Affiliation Local Pentecostalism Name Faith Resources Faith Rituals Faith Materials Provided Expressed Outcomes Family / Caregiver [...] Name: Wolf Turcios Admit Date: MR #: [id number] : 1960 Dear: Karma aMrk CNP (Family); Washington Garces MD Assessment and [...] of COPD, tobacco usage, who presented to [facility] on 04/14/2020 with c/o worsening dyspnea. Patient was recently admitted to [facility] early April for similar issue. [...] of Asthma, COPD (chronic obstructive pulmonary disease) ([facility]), Essential hypertension (01/10/2017), Hyperlipidemia, Polysubstance abuse ([facility]), PUD (peptic ulcer disease), Thoracic aortic aneurysm ([facility]), TIA (transient ischemic attack), and [...] 12.8 03/02/2020 This note was dictated using [employer]/ Dictation Software and may contain errors that [...] Transfers Sit to Stand: Stand by assistance Clerk Supervisor: 1 person, Gait belt, Wheeled walker Skilled [...] disposition). 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 Patient presented [facility] with multifocal pneumonia. Therapy recommendations currently support fci facility placement at discharge. Physical therapy: up to 5 days per week, [facility] 17; Occupational therapy: 21. Patient is in agreement with skilled facility placement. Action: This SW followed-up with admissions at [facility], . Per previous SW note, SNF referrals are currently pending at [facility], [facility], and [facility]. Addendum: SW received a message from [facility] LiaisonYakov. This patient has been denied from [facility], [facility], [facility], and [facility]. Addendum: SW met with patient at bedside. SW discussed denials at [facility]. Patient is agreeable to initiate precert at [facility]. Patient requested clothing. SW contacted Pastoral Care to request clothing for this patient. Recommendation: SW to follow-up for SNF acceptance. * Baylee Pratt LSW - 04/17/2020 11:40 AM EST COMPLEX DISCHARGE Date: 04/17/2020 Time: 11:40 AM Patient Name: Wolf Turcios Date of : 1960 Sex: Male Anticipated Discharge Plan Anticipated Facility Type: [facility] facility Situation/Background: Patient is from home. [facility] [facility] with multifocal pneumonia. Therapy recommendations currently support fci facility placement at discharge. Physical therapy: up to 5 days per week, AMPAC 17; Occupational therapy: 21. Patient is in agreement with skilled facility placement. Action: flying squad worker completed chart review. Previous RNCM provided patient with a skilled facility for review. This worker met with patient at bedside to introduce self, discuss role, and dischargeplanning options. Reviewed skilled facility list with patient. Patient is agreeable to this worker faxing referrals to [facility], [facility], [facility], and [facility]. flying squad worker has faxed referrals to these facilities. Patient will require facility acceptance and precert through his insurance prior to discharge. Recommendation: flying squad worker will follow-up on referrals regarding acceptance or denial and will continue to follow to assist with discharge planning needs as they arise. Addendum 5:32pm: flying squad worker spoke with [facility] liaison Yakov who stated facility is unable to accept at this time due to not being able to meet behavior care needs. Per Yakov, [facility], [facility], would be willing to review patient's referral. Patient has been declined at [facility] due to not having any beds available. Pending referrals remain to [facility], [facility], and [facility]. * Devon Villareal PTA - [...] Transfers Sit to Stand: Stand by assistance Clerk Supervisor: 1 person, Gait belt, Wheeled walker Skilled [...] disposition). 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 Patient was recently admitted to [facility] early April for similar issue. [...] of Asthma, COPD (chronic obstructive pulmonary disease) ([facility]), Essential hypertension (01/10/2017), Hyperlipidemia, Polysubstance abuse ([facility]), PUD (peptic ulcer disease), Thoracic aortic aneurysm ([facility]), TIA (transient ischemic attack), and [...] 12.8 03/02/2020 This note was dictated using IntervalZero/ Dictation Software and may contain errors that were not corrected during editing. * Angelika Hermosillo MD - 04/17/2020 9:27 AM EST [facility] DAILY PROGRESS NOTE Assessment and Plan Perpetual [...] Hermosillo MD - 04/16/2020 11:49 AM EST [facility] DAILY PROGRESS NOTE Assessment and Plan Perpetual [...] Medications and Transcriptions * Edmundo Ayala Jr., POLICE CAPTAIN PRECINCT - 04/16/2020 9:00 AM EST Physical Therapy [...] by assistence Lateral Transfers: Stand by assistance Clerk Supervisor: Gait belt, 1 person, Rollator Skilled Intervention: [...] disposition). 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 Urologic history: Kvjp-Vopac-Quz Scrotal US- Bilateral epididymal cysts. No testicular [...] file Gets together: Not on file Attends muslim service: Not on file Active member of [...] MD documented in this encounter* Michelle Lindsey, AVIONICS SYSTEMS ENGINEER - 06/14/2020 1:15 PM EST Telephone Visit Via Phone Call Patient ID: Wolf Turcios is a 60 y.o. male Patient phone : [phone] This visit has been fully reviewed with [...] 2017. 5. Hx covid 04/2020. Provider location: [address] [facility] [address] [place] [phone] Patient location: [address] [place] [address] I have spent 21-30 minutes with the patient discussing current HPI. documented in this encounter* Kaitlynn Ambriz CNP - 07/19/2020 12:22 PM EST [facility] PROGRESS NOTE Assessment and Plan Wolf Turcios [...] Aspiration PNA Reported choking on nicorette gum POLICE CAPTAIN PRECINCT Recently was treated for PNA and has [...] Kaitlynn AmbrizLAM - 07/18/2020 2:23 PM EST [facility] PROGRESS NOTE Assessment and Plan Wolf Turcios [...] Aspiration PNA Reported choking on nicorette gum POLICE CAPTAIN PRECINCT Recently was treated for PNA and has [...] IV, MD - 07/20/2020 8:47 AM EST [facility] Patient Name:Wolf Turcios Date:07/22/20 Patient [...] observation level of care. I had a iaeu-pl-pdem encounter with the patient on the day of discharge which included an appropriate physical exam. Discharge instructions and follow-up care were discussed in person with the patient. documented in this encounter* Betty Dean PA-C - 08/13/2020 12:12 PM EST [facility] PROGRESS NOTE Assessment and Plan Wolf Turcios [...] Tan MD - 08/12/2020 7:19 AM EST [facility] PROGRESS NOTE Assessment and Plan Wolf Turcios [...] Radiology, Medications and Transcriptions * Mariaelena Lo [facility],PharmD - 08/11/2020 8:19 AM EST PHARMACOTHERAPY NOTE: [...] Tan MD - 08/11/2020 7:54 AM EST [facility] PROGRESS NOTE Assessment and Plan Wolf Turcios [...] Davila DO - 08/10/2020 7:26 AM EST [facility] PROGRESS NOTE Assessment and Plan Wolf Turcios [...] none Type of Residence: Private residence, Other (Comment)([employer] services) Prior to Admission Home Care Services: [...] from previous admission. [facility] Address on facesheet is for [employer]. Called patient's cell phone and spoke with him over the phone. 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 Patient states that he does have his oxygen concentrator there in his room.Patient owns a wheeled walker. He would like [facility] if home health services are needed. He will need to utilize his [facility] medicaid insurance for transportation p:[phone]. * Pablo Davila DO - 08/09/2020 7:42 AM EST [facility] PROGRESS NOTE Assessment and Plan Wolf Turcios [...] complaint: Bilateral epididymal cysts ? Urologic history: Wukj-Ccsdu-Bmb Scrotal US- Bilateral epididymal cysts. No testicular [...] file Gets together: Not on file Attends muslim service: Not on file Active member of [...] FoundDocuments on File Type Date Recorded Patient Financial Accountant Expl anation Advance Directives and Livin g Will 08/04/2019 9:27 AM Latest Code Status on File Code Status Date Activated Date Inactivated Comments Full Code 06/22/2018 1:48 PM Full Code 12/13/2017 11:36 PM 01/09/2018 7:06 PM Documents on File Type Date Recorded Patient Financial Accountant Expl anation Advance Directives and Livin g Will 08/11/2019 9:27 AM Latest Code Status on File Code Status Date Activated Date Inactivated Comments Full Code 06/22/2018 1:48 PM 08/11/2019 12:01 PM Documents on File Type Date Recorded Patient Financial Accountant Expl anation Advance Directives and Livin g Will 10/21/2019 12:30 PM Latest Code Status on File Code Status Date Activated Date Inactivated Comments Full Code 06/22/2018 1:48 PM 08/11/2019 12:01 PM Full Code 12/13/2017 11:36 PM 01/09/2018 7:06 PM Documents on File Type Date Recorded Patient Financial Accountant Expl anation Advance Directives and Livin g Will 08/17/2019 12:30 PM Documents on File Type Date Recorded Patient Financial Accountant Expl anation Advance Directives and Livin g Will 11/02/2019 12:52 PM Latest Code Status on File Code Status Date Activated Date Inactivated Comments Full Code 11/02/2019 3:17 PM Full Code - Unverified 11/02/2019 2:40 PM 11/02/2019 3:1 7 PM Full Code 06/22/2018 1:48 PM 08/11/2019 12:01 PM Documents on File Type Date Recorded Patient Financial Accountant Expl anation Advance Directives and Livin g Will 11/02/2019 12:52 PM Latest Code Status on File Code Status Date Activated Date Inactivated Comments Full Code 11/02/2019 3:17 PM 11/03/2019 4:21 PM Full Code - Unverified 11/02/2019 2:40 PM 11/02/2019 3:1 7 PM Full Code 06/22/2018 1:48 PM 08/11/2019 12:01 PM Documents on File Type Date Recorded Patient Financial Accountant Expl anation Advance Directives and Livin g Will 12/12/2019 12:00 AM Latest Code Status on File Code Status Date Activated Date Inactivated Comments Full Code 11/02/2019 3:17 PM 11/03/2019 4:21 PM Documents on File Type Date Recorded Patient Financial Accountant Expl anation Advance Directives and Livin g Will 01/14/2020 12:00 AM Documents on File Type Date Recorded Patient Financial Accountant Expl anation Advance Directives and Livin g Will 03/19/2020 4:08 PM Documents on File Type Date Recorded Patient Financial Accountant Expl anation Advance Directives and Livin g Will 04/11/2020 8:23 PM Latest Code Status on File Code Status Date Activated Date Inactivated Comments Full Code 04/11/2020 11:46 PM 04/12/2020 3:22 PM Full Code 03/28/2020 5:28 PM 03/30/2020 4:54 PM Full Code 11/02/2019 3:17 PM 11/03/2019 4:21 PM Documents on File Type Date Recorded Patient Financial Accountant Expl anation Advance Directives and Livin g Will 04/13/2020 5:14 PM Latest Code Status on File Code Status Date Activated Date Inactivated Comments Full Code 04/14/2020 1:43 AM 04/21/2020 11:54 PM Full Code 04/11/2020 11:46 PM 04/12/2020 3:22 PM Documents on File Type Date Recorded Patient Financial Accountant Expl anation Advance Directives and Livin g Will 05/28/2020 12:43 PM Documents on File Type Date Recorded Patient Financial Accountant Expl anation Advance Directives and Livin g Will 05/28/2020 12:43 PM Latest Code Status on File Code Status Date Activated Date Inactivated Comments Full Code 04/14/2020 1:43 AM 04/21/2020 11:54 PM Full Code 04/11/2020 11:46 PM 04/12/2020 3:22 PM Full Code 03/28/2020 5:28 PM 03/30/2020 4:54 PM Full Code 11/02/2019 3:17 PM 11/03/2019 4:21 PM Documents on File Type Date Recorded Patient Financial Accountant Expl anation Advance Directives and Livin g Will 06/19/2020 12:43 PM Documents on File Type Date Recorded Patient Financial Accountant Expl anation Advance Directives and Livin g Will 07/05/2020 12:43 PM Documents on File Type Date Recorded Patient Financial Accountant Expl anation Advance Directives and Livin g Will 07/10/2020 12:43 PM Documents on File Type Date Recorded Patient Financial Accountant Expl anation Advance Directives and Livin g Will 07/17/2020 3:05 PM Latest Code Status on File Code Status Date Activated Date Inactivated Comments Full Code 07/17/2020 7:16 PM 07/19/2020 5:51 PM Full Code 04/14/2020 1:43 AM 04/21/2020 11:54 PM Documents on File Type Date Recorded Patient Financial Accountant Expl anation Advance Directives and Livin g Will 12/12/2019 12:00 AM Documents on File Type Date Recorded Patient Financial Accountant Expl anation Advance Directives and Livin g Will 07/26/2020 12:00 AM Latest Code Status on File Code Status Date Activated Date Inactivated Comments Full Code 07/25/2020 12:48 PM 07/26/2020 1:13 PM Full Code 07/17/2020 7:16 PM 07/19/2020 5:51 PM Full Code 04/14/2020 1:43 AM 04/21/2020 11:54 PM Documents on File Type Date Recorded Patient Financial Accountant Expl anation Advance Directives and Livin g Will 08/08/2020 11:07 PM Latest Code Status on File Code Status Date Activated Date Inactivated Comments Full Code 08/09/2020 2:50 AM 08/13/2020 4:55 PM Full Code 07/25/2020 12:48 PM 07/26/2020 1:13 PM Documents on File Type Date Recorded Patient Financial Accountant Expl anation Advance Directives and Livin g Will 12/29/2019 8:46 AM Documents on File Type Date Recorded Patient Financial Accountant Expl anation Advance Directives and Livin g Will 12/29/2019 8:46 AM Documents on File Type Date Recorded Patient Financial Accountant Expl anation Advance Directives and Livin g Will 09/21/2020 12:03 PM Documents on File Type Date Recorded Patient Financial Accountant Expl anation Advance Directives and Livin g Will 10/03/2020 7:45 PM Documents on File Type Date Recorded Patient Financial Accountant Expl anation Advance Directives and Livin g Will 12/13/2020 12:45 PM Documents on File Type Date Recorded Patient Financial Accountant Expl anation Advance Directives and Livin g Will 12/13/2020 12:45 PM Latest Code Status on File Code Status Date Activated Date Inactivated Comments Full Code 08/09/2020 2:50 AM 08/13/2020 4:55 PM Full Code 07/25/2020 12:48 PM 07/26/2020 1:13 PM Full Code 07/17/2020 7:16 PM 07/19/2020 5:51 PM Documents on File Type Date Recorded Patient Financial Accountant Expl anation Advance Directives and Livin g Will 01/24/2021 11:13 AM Documents on File Type Date Recorded Patient Financial Accountant Expl anation Advance Directives and Livin g Will 01/24/2021 11:13 AM Documents on File Type Date Recorded Patient Financial Accountant Expl anation Advance Directives and Livin g Will 01/28/2021 9:23 AM Latest Code Status on File Code Status Date Activated Date Inactivated Comments Full Code 01/28/2021 3:05 PM Full Code 08/09/2020 2:50 AM 08/13/2020 4:55 PM Documents on File Type Date Recorded Patient Financial Accountant Expl anation Advance Directives and Livin g Will 01/28/2021 9:23 AM Latest Code Status on File Code Status Date Activated Date Inactivated Comments Full Code 01/28/2021 3:05 PM 01/29/2021 3:24 PM Full Code 08/09/2020 2:50 AM 08/13/2020 4:55 PM Documents on File Type Date Recorded Patient Financial Accountant Expl anation Advance Directives and Livin g Will 02/05/2021 6:55 PM Documents on File Type Date Recorded Patient Financial Accountant Expl anation Advance Directives and Livin g Will 02/05/2021 6:55 PM Latest Code Status on File Code Status Date Activated Date Inactivated Comments Full Code 01/28/2021 3:05 PM 01/29/2021 3:24 PM Documents on File Type Date Recorded Patient Financial Accountant Expl anation Advance Directives and Livin g Will 05/24/2021 11:17 AM Latest Code Status on File Code Status Date Activated Date Inactivated Comments Full Code 05/24/2021 6:01 PM 05/26/2021 11:26 AM Full Code 01/28/2021 3:05 PM 01/29/2021 3:24 PM Documents on File Type Date Recorded Patient Financial Accountant Expl anation Advance Directives and Livin g Will 05/24/2021 11:17 AM Latest Code Status on File Code Status Date Activated Date Inactivated Comments Full Code 05/24/2021 6:01 PM 05/26/2021 11:26 AM Full Code 01/28/2021 3:05 PM 01/29/2021 3:24 PM Documents on File Type Date Recorded Patient Financial Accountant Expl anation Advance Directives and Livin g Will 07/16/2021 3:13 PM Documents on File Type Date Recorded Patient Financial Accountant Expl anation Advance Directives and Livin g [...] Will No May 18 12:45pm Power of Police Booking Officer No May 18, 2024 12:45pm Living Will No May 21 12:11am Power of Police Booking Officer No May 21, 2024 12:11am Living Will No June 02 6:17pm Power of Police Booking Officer No June 02, 2024 6:17pm Living Will No July 05 8:25am Power of Police Booking Officer No July 05, 2024 8:25am Living Will No May 31 12:18am Power of Police Booking Officer No May 31, 2024 12:18am Advance Directive Response Recorded Date/ Time Living Will No May 18 12:45pm Power of Police Booking Officer No May 18, 2024 12:45pm Living Will No May 21 12:11am Power of Police Booking Officer No May 21, 2024 12:11am Living Will No Jorje 26th, 2 024 6:17pm Power of Police Booking Officer No June 02, 2024 6:17pm Living Will No July 05 8:25am Power of Police Booking Officer No July 05, 2024 8:25am Living Will No August 18, 2024 10:09am Power of Police Booking Officer No August 18 10:09am Living Will No May 31 12:18am Power of Police Booking Officer No May 31, 2024 12:18am Advance Directive Response Recorded Date/ Time Living Will No June 02 6:17pm Do you have a Healthcare Power of Police Booking Officer? No June 02, 2024 6:17pm Living Will No July 05 8:25am Do you have a Healthcare Power of Police Booking Officer? No July 05, 2024 8:25am Living Will No August 18, 2024 10:09am Do you have a Healthcare Power of Police Booking Officer? No August 18, 2024 10:09am Living Will No May 31 12:18am Do you have a Healthcare Power of Police Booking Officer? No May 31, 2024 12:18am Date Activated [...] Do you have a Healthcare Power of Police Booking Officer? No August 18, 2024 10:09am Advance Directive Response Recorded Date/ Time Do you have a Healthcare Power of Police Booking Officer? No February 01, 2025 3:53pm Reason for Referral Status Reason Specialty Diagnoses / Procedures Referre d By Contact Referred To Contact Closed Radiology Diagnoses Testicle swelling Procedures US Testicle With Color Flow Karma Mark, AVIONICS SYSTEMS ENGINEER [address] [place] [address] Status Reason Specialty Diagnoses / Procedures Referre d By Contact Referred To Contact Closed Radiology Diagnoses Retention of urine, unspecified Procedures US Renal and Bladder Karma Mark, AVIONICS SYSTEMS ENGINEER [address] [id number] Status Reason Specialty Diagnoses / Procedures Referred By Contact Referred To Contact Authorized Specialty Services Required/[facility] Diagnoses Primary osteoarthritis of right hip Teresa Merino III, MD [address] [place] [address] Status Reason Specialty Diagnoses / Procedures Referred By Contact Referred To Contact New Request Radiology Diagnoses Chronic obstructive pulmonary disease, unspecified COPD type (HCC) Multifocal pneumonia Tobacco use History of drug use Procedures CT Chest Without Contrast Michelle Lindsey CNP [address] [place] [address] Status Reason Specialty Diagnoses / Procedures Referred By Contact Referred To Contact Pending Review Michelle Lindsey CNP [address] [place] [address] Status Reason Specialty Diagnoses / Procedures Referre d By Contact Referred To Contact Closed Michelle Lindsey CNP [address] [place] [address] Status Reason Specialty Diagnoses / Procedures Referred By Contact Referred To Contact Authorized Gastroenterology Diagnoses Globus sensation Kaitlynn Ambriz, LAM [address] [phone] Phil Borjas MD [address] [phone] Status Reason Specialty Diagnoses / Procedures Referred By Contact Referred To Contact Authorized Pulmonology Diagnoses Chronic obstructive pulmonary disease with acute exacerbation (HCC) Kaitlynn Ambriz, AVIONICS SYSTEMS ENGINEER [address] [id number] Ariel Mcintosh II, MD [address] [facility] [address] [place] [address] Status Reason Specialty Diagnoses / Procedures Referred By Contact Referred To Contact Authorized Orthopedic Surgery Diagnoses Primary osteoarthritis of right hip aMx Wright IV, MD [address] [facility] [address] [place] [address] Poli Peralta MD [address] [facility] [address] [phone] Status Reason Specialty Diagnoses / Procedures Referred By Contact Referred To Contact Authorized Specialty Services Required/[facility] General Surgery Diagnoses Bilateral inguinal hernia without obstruction or gangrene, recurrence not specified Leonardo Perla MD [address] [facility] [address] [place] [phone] Specialty Diagnoses / Procedures Referred By Contac t Referred To Contact Orthopedic Surgery Diagnoses Chronic low back pain with left-sided sciatica, unspecified back pain laterality Karma Mark, AVIONICS SYSTEMS ENGINEER [address] [place] [address] Elpidio Teran DO [address] [phone] Referral ID Status Reason Start Date Expiration Date V isits Requested Visits Authorized [id number] Authorized 05/17/2021 05/17/2022 1 1 Specialty Diagnoses / Procedures Referred By Contac t Referred To Contact Radiology Diagnoses Chronic low back pain with left-sided sciatica, unspecified back pain laterality Impaired sensation to light touch Left leg weakness Asymmetrical deep tendon reflexes Procedures MR Lumbar Spine Without Contrast Janusz Myrick PA-C [address] [phone] Referral ID Status Reason Start Date Expiration Date V isits Requested Visits Authorized [id number] New Request 06/25/2021 06/25/2022 1 1 Specialty Diagnoses / Procedures Referred By Contac t Referred To Contact Rehabilitation Diagnoses Chronic low back pain with left-sided sciatica, unspecified back pain laterality Sciatica of left side Elpidio Teran, DO [address] [place] [address] Referral ID Status Reason Start Date Expiration Date V isits Requested Visits Authorized [id number] Authorized 08/05/2021 08/05/2022 1 1 Specialty Diagnoses / Procedures Referred By Contac t Referred To Contact Pain Medicine Diagnoses Chronic low back pain with left-sided sciatica, unspecified back pain laterality Esha Bergeron PA-C [address] [phone] Referral ID Status Reason Start Date Expiration Date V isits Requested Visits Authorized [id number] Authorized 08/15/2021 08/15/2022 1 1 Specialty Diagnoses / Procedures Referred By Contac t Referred To Contact Diagnoses Other emphysema Health care maintenance Procedures PFT STANDARD Ivonne Henry MD [address] [address] Referral ID Status Reason Start Date Expiration Date V isits Requested Visits Authorized [id number] Pending Review 10/02/2023 10/26/2024 1 1 Specialty Diagnoses / Procedures Referred By Contac t Referred To Contact Diagnoses Screening for lung cancer Procedures CT LUNG CANCER SCREENING CHG COMPUTED TOMOGRAPHY THORAX LW DOSE LNG CA SCR C- Adia, Chuy C, CERTIFIED PEDORTHOTIST-AVIONICS SYSTEMS ENGINEER [address] [facility] [address] [place] [address] Referral ID Status Reason Start Date Expiration Date V isits Requested Visits Authorized [id number] Pending Review 10/05/2023 10/29/2024 1 1 Specialty Diagnoses / Procedures Referred By Contac t Referred To Contact Ivonne Henry MD [address] [address] Referral ID Status Reason Start Date Expiration Date V isits Requested Visits Authorized [id number] Pending Review 1 1 Specialty Diagnoses / Procedures Referred By Alexa t Referred To Contact Cardiac Rehabilitation Diagnoses COPD with acute exacerbation (HCC) System, Provider Not In Cardio Pulm [facility] [address] [place] [address] Referral ID Status Reason Start Date Expiration Date V isits Requested Visits Authorized [id number] Authorized 11/10/2023 11/09/2024 1 1 Chief Complaint [...] note may be different from the original. [facility] History and Physical Patient Name: Wolf Turcios : 1960 MR #: [id number] Admit Date: [id number] Physicians: Physician No (Family); [...] PM Expected Discharge/Time Spent: in this encounter [facility] HISTORY AND PHYSICAL Patient Name: Wolf Turcios : 1960 MR #: [id number] Admit Date: Physicians: García Gunn CNP (Family); [...] Date Asthma COPD (chronic obstructive pulmonary disease) ([facility]) Emphysema/COPD (HCC) Essential hypertension 01/10/2017 [...] reviewed by me documented in this encounter [facility] HISTORY AND PHYSICAL Patient Name: Wolf Turcios : 1960 MR #: [id number] Admit Date: Physicians: Karma Mark CNP (Family); [...] Date Asthma COPD (chronic obstructive pulmonary disease) ([facility]) Emphysema/COPD (HCC) Essential hypertension 01/10/2017 [...] is: tomorrow (04/13/2020) documented in this encounter [facility] History and Physical Patient Name: Wolf Turcios : 1960 MR #: [id number] Admit Date: Physicians: Karma Mark CNP (Family); [...] y.o. male patient of Karma Dani Thomas, AVIONICS SYSTEMS ENGINEER with a history of COPD, Asthma, TIA, Thoracic aortic aneurysm, Hypertension, Hyperlipidemia, PUD, Polysubstance use, Tobacco abuse. Patient was admitted to [facility] 04/11-04/12 with COPD exacerbation. Patient was discharged [...] Sexual Activity Alcohol Use Not Currently Comment: [facility] Social History Substance and Sexual [...] suitability for the planned procedure from his deliverer pharmacy. 7. COVID-19 virus infection patient developed COVID-19 [...] reflux disease without esophagitis Well controlled with PPI/M6Pjcgfbm which should be dosed perioperatively on usual [...] and pneumonia and was discharged to an [facility] where he developed COVID-19 in April [...] for the planned procedure from her his deliverer pharmacy. Patient states just last week he contacted [...] problems. He does not follow with a setter automatic spinning lathe. He denies a diagnosis of or symptoms [...] CT scan that was ordered by his deliverer pharmacy would be able to evaluate that as [...] (Calculated): 20.5 Recent Results (from the past 21799 hours) ECHOCARDIOGRAM COMPLETE 11/02/2019 (Final) Status: Normal Narrative Transthoracic Echocardiogram Patient: KAROLINA Vazquez [facility] Rec#: [id number] (Age): 1960(59y) Height: 187(cm)/73(in) Study Date: 11/02/2019 Weight: 63.5(kg)/140(lb Room#: 56 BSA: [id number] Type: Inpatient Loc: [facility] Echo Lab Sex: M Reading: Jeremiah Romero D.O. Referring: Lisa Hoew Journeyman Powerhouse Operator: LATISHA DURAN History: Asthma. COPD. Hypertension. Diagnosis: ICD-10-PCS Syncope and collapse (R55) Syncope (780.2) CPT Code(s): ECHO COMPLETE W/ DOPPLER (01650) Study Quality The study quality is technically [...] Romero D.O. Recent Results (from the past 35948 hours) XR CHEST PA/AP 05/28/2020 (Final) Status: [...] suitability for the planned procedure from his deliverer pharmacy. 7. COVID-19 virus infection patient developed COVID-19 [...] reflux disease without esophagitis Well controlled with PPI/V8Licbjoi which should be dosed perioperatively on usual [...] and pneumonia and was discharged to an [facility] where he developed COVID-19 in April [...] for the planned procedure from her his deliverer pharmacy. Patient states just last week he contacted [...] problems. He does not follow with a setter automatic spinning lathe. He denies a diagnosis of or symptoms [...] CT scan that was ordered by his deliverer pharmacy would be able to evaluate that as [...] Date Asthma COPD (chronic obstructive pulmonary disease) ([facility]) Emphysema of lung ([facility]) Essential hypertension 01/10/2017 Hyperlipidemia Polysubstance abuse ([facility]) PUD (peptic ulcer disease) Thoracic aortic aneurysm ([facility]) TIA (transient ischemic attack) Tobacco Abuse Past Medical History Pertinent Negatives: Diagnosis Date Noted Diabetes mellitus ([facility]) 01/10/2017 Renal insufficiency 01/10/2017 Past [...] (Calculated): 20.5 Recent Results (from the past 63947 hours) ECHOCARDIOGRAM COMPLETE 11/02/2019 (Final) Status: Normal Narrative Transthoracic Echocardiogram Patient: KAROLINA Vazquez [facility] Rec#: [id number] (Age): 1960(59y) Height: 187(cm)/73(in) Study Date: 11/02/2019 Weight: 63.5(kg)/140(lb Room#: 56 BSA: [id number] Type: Inpatient Loc: [facility] Echo Lab Sex: M Reading: Jeremiah Romero D.O. Referring: Lisa Howe Journeyman Powerhouse Operator: LATISHA DURAN History: Asthma. COPD. Hypertension. Diagnosis: ICD-10-PCS Syncope and collapse (R55) Syncope (780.2) CPT Code(s): ECHO COMPLETE W/ DOPPLER (03430) Study Quality The study quality is technically [...] Romero D.O. Recent Results (from the past 10298 hours) XR CHEST PA/AP 05/28/2020 (Final) Status: [...] Workstation ID: [id number] documented in this encounter [facility] HISTORY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 you must have a licensed recycling collections driver take you home. The expectation is that this recycling collections driver will remain at the hospital for [...] suitability for the planned procedure from patient's deliverer pharmacy. Patient Instructions for OFF SITE SURGERY Prior [...] makeup or lotions. ? Remove all nail mozambican for surgeries involving extremities. ? Please remember to bring both your insurance card and a photo ID with you on the day of surgery. After your surgery: ? If you are having outpatient surgery you must have a licensed recycling collections driver take you home. The expectation is that this recycling collections driver will remain at the hospital for the duration of your procedure. ? You are advised to have a family member with you for at least 24 hours after being under Anesthesia. documented in this encounter I personally interviewed the patient. I personally examined the patient. I discussed the patient with SCIENTIST IMMUNOLOGY/PA. I agree with the SCIENTIST IMMUNOLOGY/PA treatment plan. I agree with the SCIENTIST IMMUNOLOGY/PA plan of care. I agree with the SCIENTIST IMMUNOLOGY/PA dispo as documented. Patient presents for shortness [...] the patient. I discussed the patient with SCIENTIST IMMUNOLOGY/PA. I agree with the SCIENTIST IMMUNOLOGY/PA treatment plan. I agree with the SCIENTIST IMMUNOLOGY/PA plan of care. I agree with the SCIENTIST IMMUNOLOGY/PA dispo as documented. . documented in this [...] cleared for discharge. Cab called and will pick and shovel worker at ED entrance. Resting on room air oxygen saturation is 94%. Pre-exercising - 92% Exertion on room air- 88% Exertion with oxygen 94% on 2L Post exercise with oxygen 94% on 2L ACNO-JB-[id number] ENCOUNTER FOR HOME MEDICAL EQUIPMENT PATIENT: Wolf Turcios : 1960 Statement of Care: I certify that Wolf Turcios is under my care and that I, a Nurse Practitioner, Physician's Wage And Salary Administrator, or Resident working with me, had a kyja-jh-ceac encounter with this patient today to evaluate and discuss the need for home medical equipment. I certify that based on the findings of this evaluation, which included but was not limited to the caiv-ik-xxit requirements, the following home medical equipment is [...] the patient. I discussed the patient with SCIENTIST IMMUNOLOGY/PA. I agree with the SCIENTIST IMMUNOLOGY/PA treatment plan. I agree with the SCIENTIST IMMUNOLOGY/PA plan of care. I agree with the SCIENTIST IMMUNOLOGY/PA dispo as documented. I have personally taken [...] EKG shows sinus tachycardia rate of 114 ID interval normal 132 QRS normal 80, no [...] and is feeling improved. Low risk by [place] syncope rules documented in this encounter AVS [...] Nurses completing head to toe skin assessment [id number] Pt belongings: Wallet and perez with security [...] qualifying for sepsis I discussed case with [facility] agreed to accept him to their service [...] suitability for the planned procedure from patient's deliverer pharmacy. Patient Instructions for OFF SITE SURGERY Prior [...] makeup or lotions. ? Remove all nail mozambican for surgeries involving extremities. ? Please remember to bring both your insurance card and a photo ID with you on the day of surgery. After your surgery: ? If you are having outpatient surgery you must have a licensed recycling collections driver take you home. The expectation is that this recycling collections driver will remain at the hospital for the duration of your procedure. ? You are advised to have a family member with you for at least 24 hours after being under Anesthesia. documented in this encounter Please see the recommendations from patient's deliverer pharmacy dated 06/21/2020. Patient is at increased risk for postoperative pulmonary complications. It is recommended to check PFTs. These have been ordered by patient's deliverer pharmacy at the 06/14/[address] scan was [...] suitability for the planned procedure from patient's deliverer pharmacy. Patient Instructions for OFF SITE SURGERY Prior [...] makeup or lotions. ? Remove all nail mozambican for surgeries involving extremities. ? Please remember to bring both your insurance card and a photo ID with you on the day of surgery. After your surgery: ? If you are having outpatient surgery you must have a licensed recycling collections driver take you home. The expectation is that this recycling collections driver will remain at the hospital for the duration of your procedure. ? You are advised to have a family member with you for at least 24 hours after being under Anesthesia. documented in this encounter Message left for patient to call back for additional information obtained. Dr. Oswald's note sent to Dr. Perla via secure chat Please see the recommendations from patient's deliverer pharmacy dated 06/21/2020. Patient is at increased risk for postoperative pulmonary complications. It is recommended to check PFTs. These have been ordered by patient's deliverer pharmacy at the 06/14/[address] scan was [...] suitability for the planned procedure from patient's deliverer pharmacy. Patient Instructions for OFF SITE SURGERY Prior [...] makeup or lotions. ? Remove all nail mozambican for surgeries involving extremities. ? Please remember to bring both your insurance card and a photo ID with you on the day of surgery. After your surgery: ? If you are having outpatient surgery you must have a licensed recycling collections driver take you home. The expectation is that this recycling collections driver will remain at the hospital for the duration of your procedure. ? You are advised to have a family member with you for at least 24 hours after being under Anesthesia. documented in this encounter Dr. Oswald's note sent to Dr. Perla via secure chat Please see the recommendations from patient's deliverer pharmacy dated 06/21/2020. Patient is at increased risk for postoperative pulmonary complications. It is recommended to check PFTs. These have been ordered by patient's deliverer pharmacy at the 06/14/[address] scan was [...] suitability for the planned procedure from patient's deliverer pharmacy. Patient Instructions for OFF SITE SURGERY Prior [...] makeup or lotions. ? Remove all nail mozambican for surgeries involving extremities. ? Please remember to bring both your insurance card and a photo ID with you on the day of surgery. After your surgery: ? If you are having outpatient surgery you must have a licensed recycling collections driver take you home. The expectation is that this recycling collections driver will remain at the hospital for [...] Expiration Date Visits Re quested Visits Authorized [id number] 1 1 Reason Comments Leg Swelling Status [...] Testicle With Color Flow Karma Mark CNP [facility] [place] [address] Status Reason Specialty Diagnoses / Procedures Referre d By Contact Referred To Contact Closed Radiology Diagnoses Retention of urine, unspecified Procedures US Renal and Bladder Karma Mark CNP [facility] [place] [address] Reason Comments Syncope Status Reason Specialty Diagnoses [...] recurrence not specified Leonardo Perla MD [address] [facility] [address] [place] [address] [address] [place] [address] Status Reason Specialty Diagnoses / Procedures Re [...] Interest Urology Diagnoses Epididymal cyst Karma Mark, AVIONICS SYSTEMS ENGINEER [address] [place] [address] [facility] [facility] [facility] [address] [place] [address] Reason Comments Chest Pain Reason Comments Leg Pain Reason Comments Grape stuck in throat Reason Onset Date Comments Community Resource Linkage 01/10/2021 Reason Comments Pre-op Exam COPD Reason Onset Date Comments Medication Refill 01/23/2021 Specialty Diagnoses / Procedures Referred By Alexa sutton Referred To Contact Diagnoses Unilateral primary osteoarthritis, right hip Procedures ID TOTAL HIP ARTHROPLASTY Teresa Terry MD [address] [place] [address] Referral ID Status Reason Start Date Expiration Date Visits Re quested Visits Authorized [id number] 01/14/2021 01/14/2022 1 1 Reason Comments Follow-up [...] pain is decreasing. Follow-up Reason Comments Pain [facility] IMMUNOLOGY. Lumbar pain. N/t L LE knee down. PL 12/15. Ongoing pain for about 10 years. No previous sx, injections, PT. XR today. Specialty Diagnoses / Procedures Referred By Alexa sutton Referred To Contact Orthopedic Surgery Diagnoses Chronic low back pain with left-sided sciatica, unspecified back pain laterality Karma Mark, AVIONICS SYSTEMS ENGINEER [address] [place] [address] Elpidio Teran, [address] [place] [address] Referral ID Status Reason Start Date Expiration Date Visits Re quested Visits Authorized [id number] Closed 05/17/2021 05/17/2022 1 1 Reason Comments Follow-up Lumbar follow-up. N/ t L LE. PL 01/15. Review MRI results-in [facility]. Reason Comments New Patient Eyes constantly runs Specialty Diagnoses / Procedures Referred By Contac t Referred To Contact Internal Medicine / General Medicine Diagnoses est care pt takes gabapentin just moved from [place] - has [place] medicaid and will transfer to [place] medicaid. phone breaking up so cannot get ins # Procedures NEW PRIMARY CARE Self, Self Ivonne Henry MD [address] [facility] [address] [place] [address] Referral ID Status Reason Start Date Expiration Date V isits Requested Visits Authorized [id number] Pending Review 10/02/2023 10/26/2024 1 1 Reason Onset Date Comments Results 10/05/2023 Specialty Diagnoses / Procedures Referred By Contac t Referred To Contact Diagnoses Other emphysema Health care maintenance Procedures PFT STANDARD Ivonne Henry MD [address] [facility] [address] [place] [address] Referral ID Status Reason Start Date Expiration Date V isits Requested Visits Authorized [id number] Pending Review 10/02/2023 10/26/2024 1 1 Specialty Diagnoses / Procedures Referred By Contac t Referred To Contact Diagnoses Screening for lung cancer Procedures CT LUNG CANCER SCREENING CHG COMPUTED TOMOGRAPHY THORAX LW DOSE LNG CA SCR Karyn- Chuy Cheek, CERTIFIED PEDORTHOTIST-AVIONICS SYSTEMS ENGINEER [address] [facility] [address] [place] [address] Referral ID Status Reason Start Date Expiration Date V isits Requested Visits Authorized [id number] Pending Review 10/05/2023 10/29/2024 1 1 Reason Onset Date Comments Results 10/19/2023 Reason Onset Date Comments Results 10/19/2023 Specialty Diagnoses / Procedures Referred By Contac t Referred To Contact Diagnoses COPD with acute exacerbation (HCC) Referral ID Status Reason Start Date Expiration Date Visits Re quested Visits Authorized [id number] 1 1 Reason Onset Date Comments Insurance 10/22/2023 Reason Comments Shortness of Breath Specialty Diagnoses / Procedures Referred By Contac t Referred To Contact Diagnoses COPD exacerbation Kirk Ragland MD [address] [facility] [address] [place] [address] [facility] [address] [place] [address] Referral ID Status Reason Start Date Expiration Date Visits Re quested Visits Authorized [id number] 1 1 Reason Comments Follow-up Pt states he's here for a hospital follow up for bronchitis day before yesterday Reason Onset Date Comments Referral 11/05/2023 Reason Comments Prostate Cancer Initial consult Specialty Diagnoses / Procedures Referred By Contac t Referred To Contact Radiation Oncology Diagnoses Prostate cancer (HCC) Elijah Sanchez MD [address] [facility] [address] [place] [address] Phone: tel: fax: Jihan Rodriguez MD [address] [place] [address] Phone: tel: fax: Referral ID Status Reason Start Date Expiration Date Visits Re quested Visits Authorized [id number] Closed 02/14/2025 02/14/2026 1 1 Reason Comments [...] of breath. Apparently was walking to an [employer] he got so short of breath [...] Date Asthma COPD (chronic obstructive pulmonary disease) ([facility]) Emphysema/COPD ([facility]) Essential hypertension 01/10/2017 Past Surgical [...] file Gets together: Not on file Attends muslim service: Not on file Active member of club or organization: Not on file Attends meetings of clubs or organizations: Not on file Relationship status: Not on file Other Topics Concern Not on file Social History Narrative Not on file Allergies Allergies Allergen Reactions Codeine Itching Medications Wolf Turcios Home Medication Instructions Prior to Surgery NUNO:[id number] Printed on:08/11/19 1412 Medication Information Take last [...] exacerbation of chronic obstructive pulmonary disease (COPD) ([facility]) Labs Reviewed BASIC METABOLIC PANEL [...] Procedure Abnormality Status --------- ------ CBC Auto Differential[[id number]] Abnormal Final result Please view results for [...] and this morning he walked to an [employer] and he was so short of breath [...] ordered at this time. ED PROVIDER NOTE [facility] EMERGENCY DEPARTMENT NAME: Wolf Turcios AGE: 59 y.o. : 1960 VISIT DATE: 11/02/2019 CSN: [id number] PCP: García Gunn CNP Chief Complaint Patient [...] file Gets together: Not on file Attends muslim service: Not on file Active member of [...] ms QTC Calculation (Bezet) 406 ms P [place] -10 degrees R [place] 3 degrees T [place] -12 degrees POC Glucose Result Value Ref [...] Final Result No acute process. Workstation ID: [id number] Procedures MDM 59 y/o WM smoker with [...] Means of arrival: Ambulance Comments: M14 Syncope [employer] c/o 2 syncopal episodes today. He was lifting a water cooler the first time. The second episode happened directly after. States his lips were numb and tingly prior to passing out but has resolved. documented in this encounter ED PROVIDER NOTE [facility] EMERGENCY DEPARTMENT NAME: Wolf Turcios AGE: 59 y.o. : 1960 VISIT DATE: 01/14/2020 CSN: [id number] PCP: Karma Mark CNP Chief Complaint Patient presents with Shortness of Breath [id number] male arrives to the ER today with [...] Date Asthma COPD (chronic obstructive pulmonary disease) ([facility]) Emphysema/COPD ([facility]) Essential hypertension 01/10/2017 Past Surgical [...] file Gets together: Not on file Attends muslim service: Not on file Active member of [...] Why: Follow up ER visit Uli Oquendo [facility] [phone] Contact information for after-discharge care Follow-up information has not been specified. New Prescriptions predniSONE (DELTASONE) 20 MG tablet Take 3 (three) tablets (60 mg total) by mouth daily for 4 days . Lotus Cruz CNP 01/14/20 7164 Pt resting comfortably with call light in [...] by CPD. 98% RA, NSR on cardiac catheterization technologist. Pt reports this was a sudden onset of SOB, reports he has used his inhaler without relief since this AM. Bed: 41 Expected date: Expected time: Means of arrival: Comments: M3; sob; anderson documented in this encounter PCP: Karma Mark, AVIONICS SYSTEMS ENGINEER Chief Complaint Patient presents with Shortness of [...] Date Asthma COPD (chronic obstructive pulmonary disease) ([facility]) Emphysema/COPD ([facility]) Essential hypertension 01/10/2017 Past medical [...] file Gets together: Not on file Attends muslim service: Not on file Active member of [...] Turcios Home Medication Instructions Prior to Surgery NUNO:[id number] Printed on:04/11/20 5086 Medication Information Take last dose on Take [...] Cough 3. SOB (shortness of breath) Plan- [facility] admit Condition- stable PROCEDURES (if any, during [...] at the following links: For Healthcare Providers: https://www.fda.gov/media/810274/download For Patients: https://www.fda.gov/media/372675/download CBC AND DIFFERENTIAL Narrative: The following orders were created for panel order CBC w/ Diff. Procedure Abnormality Status --------- ------ CBC Auto Differential[[id number]] Abnormal Final result Please view results for [...] on 4 L NC. ED PROVIDER NOTE [facility] GENERAL MEDICINE NAME: Wolf Turcios AGE: 59 y.o. : 1960 VISIT DATE: 04/13/2020 CSN: [id number] PCP: Karma Mark CNP No chief complaint [...] Date Asthma COPD (chronic obstructive pulmonary disease) ([facility]) Essential hypertension 01/10/2017 Hyperlipidemia Polysubstance abuse ([facility]) PUD (peptic ulcer disease) Thoracic aortic aneurysm ([facility]) TIA (transient ischemic attack) Tobacco [...] file Gets together: Not on file Attends muslim service: Not on file Active member of [...] Colorless, Yellow Clarity, Urine Clear Clear Specific [place] 1.020 1.005 - 1.025 pH, Urine 6.0 [...] ms QTC Calculation (Bezet) 400 ms P [place] 76 degrees R [place] 63 degrees T [place] 74 degrees ECG 12 Lead Result Value Ref Range Ventricular Rate 114 BPM Atrial Rate 114 BPM P-R Interval 136 ms QRS Duration 90 ms Q-T Interval 308 ms QTC Calculation (Bezet) 424 ms P [place] 76 degrees R [place] 57 degrees T [place] 74 degrees ECG 12 Lead Result Value Ref Range Ventricular Rate 112 BPM Atrial Rate 112 BPM P-R Interval 130 ms QRS Duration 82 ms Q-T Interval 318 ms QTC Calculation (Bezet) 434 ms P [place] 70 degrees R [place] 39 degrees T [place] 68 degrees ECG 12 Lead Result Value Ref Range Ventricular Rate 75 BPM Atrial Rate 75 BPM P-R Interval 144 ms QRS Duration 104 ms Q-T Interval 376 ms QTC Calculation (Bezet) 419 ms P [place] 67 degrees R [place] 65 degrees T [place] 63 degrees CBC Auto Differential Result Value [...] Mark CNP. Specialty: Nurse Practitioner [address] Mcnally [facility] [id number] 2. Michelle Lindsey CNP. Specialties: Pulmonology, Pulmonary Disease, Critical Care Medicine, Nurse Practitioner Why: Tele pulm follow up: Telehealth Appointment with Michelle Lindsey CNP Jun 2:00 [place] [address] 3. [facility]. Why: Open 24 hours 7 days a week. Walk-in or call for admission. [address] [id number] Contact information for after-discharge care Follow-up information has not been specified. New Prescriptions This print group is not available in inpatient encounters. Please contact a systems mechanic. Bethany Nguyen PA-C 04/13/202028 Bethany Nguyen PA-C [...] 14 nausea fulp documented in this encounter [facility] EM[facility]Y [facility]PART[facility] EMERGENCY MEDICINE NOTE PCP: Karma Mark CNP Encounter Date: 05/28/20 Chief Complaint: Chief Complaint Patient presents with Shortness of Breath History of Presenting Illness: Wolf Turcios is a 60 y.o. male with a past medical history that includes has a past medical history of Asthma, COPD (chronic obstructive pulmonary disease) ([facility]), Essential hypertension (01/10/2017), Hyperlipidemia, Polysubstance abuse ([facility]), PUD (peptic ulcer disease), Thoracic aortic aneurysm ([facility]), TIA (transient ischemic attack), and [...] 1. Karma Mark CNP. Specialty: Nurse Practitioner [address] [place] [phone] Contact information for after-discharge care Follow-up information has not been specified. . (IntervalZero Software was used to transcribe this note) [...] Procedure Abnormality Status --------- ------ CBC Auto Differential[[id number]] Abnormal Final result Please view results for [...] file Gets together: Not on file Attends muslim service: Not on file Active member of [...] confirmed covid test in chart, pt reports jail test was positive. Bed: 25 Expected date: Expected time: Means of arrival: Comments: M22; SARAH; Sontag documented in this encounter Patient okay to eat per Dr. Rebolledo. Patient provided with boxed meal. ED PROVIDER NOTE [facility] NAME: Wolf Turcios AGE: 60 y.o. : 1960 VISIT DATE: 07/05/2020 CSN: [id number] PCP: Karma Mark CNP Chief Complaint Patient presents with Shortness of Breath History provided by: Patient respiratory care technician used: No Shortness of Breath Associated symptoms: [...] file Gets together: Not on file Attends muslim service: Not on file Active member of [...] ms QTC Calculation (Bezet) 436 ms P [place] 85 degrees R [place] 72 degrees T [place] 85 degrees CBC Auto Differential Result Value [...] hx of COPD. 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 Pt 92% on RA. [...] states he needs surgery. ED PROVIDER NOTE [facility] NAME: Wolf Turcios AGE: 60 y.o. : 1960 VISIT DATE: 07/10/2020 CSN: [id number] PCP: Karma Mark, AVIONICS SYSTEMS ENGINEER No chief complaint on file. 60-year-old male [...] file Gets together: Not on file Attends muslim service: Not on file Active member of [...] No fracture identified involving the right knee. [employer] Workstation ID: [id number] Lumbar Spine 2-3 Views (Standard) Final Result Changes of DJD and DDD as described above. No acute fractures identified. [employer] Workstation ID: [id number] Knee Right 2 [...] No fracture identified involving the right knee. [employer] Workstation ID: [id number] Hip Right With Pelvis 2-3 Views (Routine) Final Result Severe osteoarthritis of the right hip joint with loss of the joint space, subchondral cyst formation, bony sclerosis and osteophyte formation. No fracture of the right femoral neck or intratrochanteric region. The rest of the right femur appears unremarkable. Soft tissue swelling anterior to the patella. No fracture identified involving the right knee. [employer] Workstation ID: [id number] Procedures MDM Number of [...] 1. Dani Nash DO. Specialty: Orthopedic Surgery [address] [place] [address] Contact information for after-discharge care Follow-up information has not been specified. Yenni Bowen CNP 07/10/20 1152 Pt arrives via EMS for complaints of a fall. Pt states that he has chronic right hip pain. 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 Pt was ambulatory after the fall. Bed: 47 Expected date: Expected time: Means of arrival: Comments: Medic 14; fall; dr. crabtree documented in this encounter Pt removed from BiPaP, on room air O2 saturation is 97%. ED PROVIDER NOTE [facility] NAME: Wolf Turcios AGE: 60 y.o. : 1960 VISIT DATE: 07/17/2020 CSN: [id number] PCP: Karma Mark AVIONICS SYSTEMS ENGINEER No chief complaint on file. 60-year-old male [...] file Gets together: Not on file Attends muslim service: Not on file Active member of [...] lower lung infiltrate. No new abnormality identified. [employer] Workstation ID: [id number] Procedures MDM Number of [...] of last year he states from a jail. He at this point seems to be doing better on BiPAP, hopeful to liberate here soon in the emergency department. We will add azithromycin for COPD exacerbation. Twelve-lead EKG interpreted by myself as a sinus tachycardia with a rate of 110. Normal axis. No ST segment changes, T waves inverted in aVL although concordant with the polarity of aVL. QTc, QRS, ID normal. Initial blood gas with pH of [...] a Covid swab in April at a jail which he states was positive. For this [...] file Gets together: Not on file Attends muslim service: Not on file Active member of [...] Turcios Home Medication Instructions Prior to Surgery NUNO:[id number] Printed on:07/25/20 [facility] Medication Information Take last dose on Take [...] Procedure Abnormality Status --------- ------ CBC Auto Differential[[id number]] Abnormal Final result Please view results for [...] Otherwise no acute focal process. Workstation ID: [id number] CT Pulmonary Arteries Final Result 1. No evidence of pulmonary embolism or acute pulmonary abnormality. 2. Decreased consolidation in the superior segment of the right lower lobe, compatible with resolving pneumonia. Right middle lobe opacities have resolved. 3. Severe emphysema. Workstation ID: [id number] Medications Ordered/Given During ED Visit Medications sodium [...] called at this time. ED PROVIDER NOTE [facility] NAME: Wolf Turcios AGE: 60 y.o. : 1960 VISIT DATE: 07/26/2020 CSN: [id number] PCP: Karma Mark CNP Chief Complaint Patient presents with Fall History provided by: Patient respiratory care technician used: No Fall Pertinent negatives include no [...] file Gets together: Not on file Attends muslim service: Not on file Active member of [...] ms QTC Calculation (Bezet) 419 ms P [place] 77 degrees R [place] 68 degrees T [place] 73 degrees CBC Auto Differential Result Value [...] Mark CNP. Specialty: Nurse Practitioner Uli Oquendo [facility] [phone] Contact information for [...] monitoring in place. PCP - Karma Mark, AVIONICS SYSTEMS ENGINEER Chief Complaint Patient presents with Cough HPI [...] file Gets together: Not on file Attends muslim service: Not on file Active member of [...] Turcios Home Medication Instructions Prior to Surgery NUNO:[id number] Printed on:08/08/20 8717 Medication Information Take last dose on Take [...] at the following links: For Healthcare Providers: https://www.[employer].gov/media/800999/download For Patients: https://www.[employer].gov/media/375459/download NT PRO BNP - Normal Narrative: Pride [...] Procedure Abnormality Status --------- ------ CBC Auto Differential[[id number]] Abnormal Final result Please view results for [...] mL (1,000 mL Intravenous New Bag 08/08/20 5637) cefTRIAXone (ROCEPHIN) IVPB 1 g (premix) (has no administration in time range) azithromycin (ZITHROMAX) 500 mg in sodium chloride (NS) 0.9% 250 mL (vialmate) (500 mg Intravenous New Bag 08/08/202322) ketorolac (TORADOL) injection 15 mg (15 mg Intravenous Given 08/08/202322) Procedures Note: To expedite correspondence this note was generated by [employer] voice recognition software. All imaging has been read by a Radiologist. Darek Mccormack PA-C 08/08/20 9649 EMS reports pt was recently diagnosed with [...] not available)0847 (Given - Provider: Osiris Weber, MANAGER INTERNSHIP)1313 (Given - Provider: Jihan Moore, MANAGER INTERNSHIP)2040 (Given - Provider: Serge Centeno, ALL) 0259 (Given - Provider: Serge Centeno, ALL)0804 (Given - Provider: Marisol Valdes, MANAGER INTERNSHIP)1400 (Due) methylPREDNISolone sod suc(PF) (SOLU-medrol) Injection 125 [...] dose 1951 (Given - Provider: Wolf Montiel, MANAGER INTERNSHIP) ipratropium-albuteroL (DUO-NEB) 0.5-2.5 mg/3 ml nebulizer solution 3 mL 3 mL, Inhalation, 4 times daily (RT), First dose on 10/25/23 at 2120 2120 (Not Given - Provider: Chelle Mcleod, MANAGER INTERNSHIP - Reason: Unreviewed Transfer Orders) 0814 (Given - Provider: Mirta Cuello, MANAGER INTERNSHIP)1220 (Given - Provider: Mirta Cuello, MANAGER INTERNSHIP)1613 (Given - Provider: Janusz Hess, MANAGER INTERNSHIP)2030 (Given - Provider: Tereso Boland, MANAGER INTERNSHIP) 1005 (Given - Provider: Devon Still, MANAGER INTERNSHIP)1411 (Given - Provider: Devon Still, MANAGER INTERNSHIP) lisinopriL (PRINIVIL,ZESTRIL) tablet 30 mg 30 mg, [...] RAY) 1417 (Given - Provider: Devon Still, MANAGER INTERNSHIP) pantoprazole (PROTONIX) EC tablet 40 mg 40 [...] PLACED TUBE OR TUBE less than 14 Brazilian. To administer dissolved tablet(s) mix with 4 [...] Care Teams (unrecognized sec tion and content) Railroad Operator Relationship Specialty Start Date End Date Karma Mark, AVIONICS SYSTEMS ENGINEER [address] [place] [address] PCP - General Nurse Practitioner 01/14/20 Railroad Operator Relationship Specialty Start Date End Date Karma Mark, AVIONICS SYSTEMS ENGINEER [address] [place] [address] PCP - General Nurse Practitioner 01/14/20 Railroad Operator Relationship Specialty Start Date End Date Karma Mark, AVIONICS SYSTEMS ENGINEER [address] [place] [address] PCP - General Nurse Practitioner 01/14/20 Railroad Operator Relationship Specialty Start Date End Date Karma Mark, AVIONICS SYSTEMS ENGINEER [address] [place] [address] PCP - General Nurse Practitioner 01/14/20 Railroad Operator Relationship Specialty Start Date End Date Karma Mark, LAM [address] [place] [address] PCP - General Nurse Practitioner 01/14/20 Railroad Operator Relationship Specialty Start Date End Date Karma Mark, AVIONICS SYSTEMS ENGINEER [address] [place] [address] PCP - General Nurse Practitioner 01/14/20 Railroad Operator Relationship Specialty Start Date End Date ThomasKarma suárez, AVIONICS SYSTEMS ENGINEER [address] [place] [address] PCP - General Nurse Practitioner 01/14/20 Railroad Operator Relationship Specialty Start Date End Date Karma Mark, AVIONICS SYSTEMS ENGINEER [address] [place] [address] PCP - General Nurse Practitioner 01/14/20 Railroad Operator Relationship Specialty Start Date End Date Karma Mark, AVIONICS SYSTEMS ENGINEER [address] [place] [address] PCP - General Nurse Practitioner 01/14/20 Railroad Operator Relationship Specialty Start Date End Date Karma Mark, AVIONICS SYSTEMS ENGINEER [address] [place] [address] PCP - General Nurse Practitioner 01/14/20 Railroad Operator Relationship Specialty Start Date End Date Karma Mark, AVIONICS SYSTEMS ENGINEER [address] [place] [address] PCP - General Nurse Practitioner 01/14/20 Railroad Operator Relationship Specialty Start Date End Date Karma Mark, AVIONICS SYSTEMS ENGINEER [address] [place] [address] PCP - General Nurse Practitioner 01/14/20 Railroad Operator Relationship Specialty Start Date End Date Karma Mark, AVIONICS SYSTEMS ENGINEER [address] [place] [address] PCP - General Nurse Practitioner 01/14/20 Railroad Operator Relationship Specialty Start Date End Date Karma Mark, AVIONICS SYSTEMS ENGINEER [address] [place] [address] PCP - General Nurse Practitioner 01/14/20 Railroad Operator Relationship Specialty Start Date End Date Karma Mark, AVIONICS SYSTEMS ENGINEER [address] [facility] [place] [address] PCP - General Nurse Practitioner 01/14/20 Railroad Operator Relationship Specialty Start Date End Date Karma Mark Dani, AVIONICS SYSTEMS ENGINEER [address] [place] [address] PCP - General Nurse Practitioner 01/14/20 Railroad Operator Relationship Specialty Start Date End Date Karma Mark, AVIONICS SYSTEMS ENGINEER [address] [place] [address] PCP - General Nurse Practitioner 01/14/20 Railroad Operator Relationship Specialty Start Date End Date Ivonne Henry MD [address] [place] [phone] PCP - General Internal Medicine 10/02/23 Railroad Operator Relationship Specialty Start Date End Date Ivonne Henry MD [address] [place] [phone] PCP - General Internal Medicine 10/02/23 Railroad Operator Relationship Specialty Start Date End Date Ivonne Henry MD [address] [place] [phone] PCP - General Internal Medicine 10/02/23 Railroad Operator Relationship Specialty Start Date End Date Ivonne Henry MD [address] [place] [phone] PCP - General Internal Medicine 10/02/23 Railroad Operator Relationship Specialty Start Date End Date Ivonne Henry MD [address] [place] [phone] [address] PCP - General Internal Medicine 10/02/23 Railroad Operator Relationship Specialty Start Date End Date Ivonne Henry MD [address] [place] [address] [place], [place] [id number] PCP - General Internal Medicine 10/02/23 Railroad Operator Relationship Specialty Start Date End Date Ivonne Henry MD [address] [place] [address] PCP - General Internal Medicine 10/25/23 Railroad Operator Relationship Specialty Start Date End Date Ivonne Henry MD [address] [place] [address] PCP - General Internal Medicine 10/02/23 Railroad Operator Relationship Specialty Start Date End Date Ivonne Henry MD [address] PCP - General Internal Medicine 10/02/23 Railroad Operator Relationship Specialty Start Date End Date Ivonne Henry MD [address] PCP - General Internal Medicine 10/02/23 11/03/23 Ivonne Henry MD [address] [place] [address] PCP - General Internal Medicine 11/04/23 Railroad Operator Relationship Specialty Start Date End Date Ivonne Henry MD [address] [place] [facility] [place] [phone] PCP - General Internal Medicine 11/04/23 Railroad Operator Relationship Specialty Start Date End Date Ivonne Henry MD [address] [place] [address] [place], [place] [id number] PCP - General Internal Medicine 11/04/23 Railroad Operator Relationship Specialty Start Date End Date Ivonne Henry MD [address] [place] [address] PCP - General Internal Medicine 11/04/23 Railroad Operator Relationship Specialty Start Date End Date Ivonne Henry MD [address] [place] [address] PCP - General Internal Medicine 10/25/23 Team [...] 2024 End: June 02, 2024 Dr. Nabeel Wmoack MD Attending Provider Active Start: June 02, 2024 End: June 02, 2024 Team Status: Active Member Role Status El Blacwkell MD Primary Care Provider Active St art: [...] Iker Blackwell MD Other Provider Active Start: [facility] 2024 Dr. Eron Enrique MD Attending [...] September 21, 2024 End: September 21, 2024 Railroad Operator Relationship Specialty Start Date End Date Ivonne Henry MD [address] [place] [address] [place] [address] PCP - General Internal Medicine 10/25/23 Railroad Operator Relationship Specialty Start Date End Date Ivonne Henry MD [address] [place] [address] [place] [address] PCP - General Internal Medicine 10/25/23 Railroad Operator Relationship Specialty Start Date End Date Ivonne Henry MD [address] [place] [address] [place] [address] PCP - General Internal Medicine 10/25/23 Railroad Operator Relationship Specialty Start Date End Date Ivonne Henry MD [address] [place] [address] [place] [id number] PCP - General Internal Medicine 10/25/23 Team [...] November 25, 2024 End: November 25, 2024 Railroad Operator Relationship Specialty Start Date End Date Ivonne Henry MD [address] [facility] [address] [place] [address] PCP - General Internal Medicine 10/25/23 Team [...] February 01, 2025 End: February 01, 2025 Railroad Operator Relationship Specialty Start Date End Date Ivonne Henry MD [address] [place] [address] PCP - General Internal Medicine 10/25/23 Railroad Operator Relationship Specialty Start Date End Date Ivonne Henry MD [address] [place] [address] PCP - General Internal Medicine 10/25/23 Railroad Operator Relationship Specialty Start Date End Date Ivonne Henry MD [address] [place] [address] PCP - General Internal Medicine 10/25/23 Railroad Operator Relationship Specialty Start Date End Date Ivonne Henry MD [address] [place] [address] PCP - General Internal Medicine 10/25/23 Railroad Operator Relationship Specialty Start Date End Date Ivonne Henry MD [address] [place] [address] [place] [address] PCP - General Internal Medicine 10/25/23 Railroad Operator Relationship Specialty Start Date End Date Ivonne Henry MD [address] [place] [address] [place] [address] PCP - General Internal Medicine 10/25/23 Team [...] Attending physician Active Start: March 03, 2025 Railroad Operator Relationship Specialty Start Date End Date Ivonne Henry MD [address] [place] [address] [place] [address] PCP - General Internal Medicine 10/25/23 Railroad Operator Relationship Specialty Start Date End Date Ivonne Henry MD [address] [place] [address] PCP - General Internal Medicine 10/25/23 Goals [...] section and content) DATE CREATED AUTHOR 10/14/2024 [facility] DATE CREATED AUTHOR AUTHOR'S ORGANIZ ATION 10/20/2024 [facility] DATE CREATED AUTHOR AUTHOR'S ORGANIZ ATION 10/20/2024 [facility] DATE CREATED AUTHOR AUTHOR'S ORGANIZ ATION 03/25/2025 [facility] DATE CREATED AUTHOR AUTHOR'S ORGANIZ ATION 04/01/2025 [facility] nt DATE CREATED AUTHOR AUTHOR'S ORGANIZ ATION 04/12/2025 [facility] DATE CREATED AUTHOR AUTHOR'S JACEKHIRAM ATNOLA 04/16/2025 [facility] DATE CREATED AUTHOR AUTHOR'S AZ ATION 04/19/2025 [facility] FOR RECORDS PERTAINING TO PATIENTS WHO [...] BE BASED ON THE PRIMARY CLINICAL RECORDS. [facility] [employer] [facility]. provides no warranty or guarantee of the accuracy or completeness of information in this document.
[2025-06-04] MEDS: Budesonide Respules 0.5 MG/2 ML AMPUL.NEB. INHALATION ×2 (07:24→19:14)
[2025-06-04] MEDS: guaiFENesin/D-Methorphan TAB.SR.12H 1 TABLET PO ×2 (09:15→21:05)
--- NOTE | 2025-06-04 13:55 | PCM.HP.STD ---
HPI - General General Date of Admission: 06/04/25 HPI Narrative WOLF TURCIOS, is a 65 M who presents to the hospital with nausea, vomiting, and dizziness that also been accompanied by tinnitus. He says that it happened suddenly on admission with no prodromal symptoms, no recent viral illnesses and the sensation of tinnitus is bilateral. No significant change in symptoms based on position or eye movement. No weakness or numbness and tingling in bilateral upper or lower extremities, no other signs of a stroke NIH is 0. He did recently finish radiation therapy for prostate cancer but otherwise has not started any new medications. [facility] Medical History History of substance use History of alcohol abuse Smoker Emphysema lung Asthma COPD (chronic obstructive pulmonary disease) Hypertension Migraines TIA (transient ischemic attack) Adverse reaction to REEMA inhibitor drug Home Medications ?Medication ?Instructions ?Recorded ?Last Taken ?Type albuterol sulfate 90 mcg/actuation 1 - 2 puff inhalation Q4H PRN PRN 01/02/24 Unknown Rx aerosol inhaler (Ventolin HFA) Wheezing #1 ea fluticasone fur. 100 mcg-umeclid 1 ea inhalation DAILY breathing 01/21/24 Unknown History 62.5 mcg-vilant 25 mcg inhalat.powder (Trelegy Ellipta) omeprazole 20 mg capsule,delayed 20 mg PO DAILY reflux 01/21/24 Unknown History release tamsulosin 0.4 mg capsule 0.4 mg PO DAILY prostate 01/21/24 Unknown History amlodipine 2.5 mg tablet (Norvasc) 2.5 mg PO DAILY bp #30 tabs 01/22/24 Unknown Rx diphenhydramine HCl 25 mg capsule 50 mg (2 x 25 mg) PO TID PRN 01/22/24 Unknown Rx allergic reaction #20 caps cyclobenzaprine 10 mg tablet 10 mg PO BID spasm 05/17/24 Unknown History dextromethorphan-guaifenesin 30 1 tab PO Q12H PRN cough #14 tabs 05/18/24 Unknown Rx mg-600 mg tablet extended hr (Mucus DM) nystatin 100,000 unit/mL oral 500,000 unit (5 mL) PO 4X/DAY 7 05/18/24 Unknown Rx suspension days #140 mL doxycycline hyclate 100 mg capsule 100 mg PO BID 10 days #20 caps 05/31/24 Unknown Rx ondansetron 4 mg disintegrating 4 mg PO Q8H PRN PRN Nausea #10 tabs 07/05/24 Unknown Rx tablet Allergy/AdvReac Type Severity Reaction Status Date / Time lisinopril Allergy Severe Angioedema Verified 06/03/25 22:03 codeine Allergy Mild Itching Verified 06/03/25 22:03 Family History Mother Uterine cancer Father ETOH abuse Surgical History History of testicular surgery History of gastric surgery History of bilateral inguinal hernia repair History of total right hip replacement Social History household members: other details: His daugher and his grandson live with him. Smoking Status: Light Smoker (<10/day) how long ago did patient quit smoking: Patient prior smoked up to 2 ppd, started at age 9, down to 1 pack max/week quit status: considering quitting alcohol intake: former substance use type: former substance user ROS Constitutional Constitutional: Denies chills, fatigue, fever(s) or malaise Eyes Eyes: Denies blurry vision ENT HEENT: Reports tinnitus and vertigo; Denies headache(s) or nasal discharge Cardiovascular Cardiovascular: Reports lightheadedness; Denies chest pain, dyspnea on exertion or syncope Respiratory/Chest Respiratory/Chest: Denies cough, shortness of breath at rest or shortness of breath with exertion Gastrointestinal Gastrointestinal: Denies constipation, diarrhea, nausea or vomiting Genitourinary Genitourinary: Denies dysuria Neurologic Neurologic: Reports dizziness; Denies focal weakness, numbness or tremor(s) Psychiatric Psychiatric: Denies anxiety or depression Patient's Goals Of Care . Unable to discuss care goals with the patient and or patient insurance claims representative at this time: Yes Vital Signs Vital Signs Vital Signs: 06/03/25 22:02 06/03/25 22:08 06/03/25 23:01 Temperature 98.2 F 98.2 F Temperature Source Axillary Axillary Pulse Rate 117 H 107 H 85 Respiratory Rate 20 H 20 H 20 H Respiratory Pattern Blood Pressure 164/98 H 179/109 H 157/94 H Blood Pressure Mean 120 132 115 Blood Pressure Source Blood Pressure Position Blood Pressure Location Pulse Ox 98 99 95 Oxygen Delivery Method Nasal Cannula Nasal Cannula Nasal Cannula Oxygen Flow Rate (L/min) 2.5 2.5 2.5 06/03/25 23:08 06/04/25 00:00 06/04/25 01:00 Temperature 98.2 F 98.2 F 98.2 F Temperature Source Oral Oral Oral Pulse Rate 89 87 93 Respiratory Rate 20 H 20 H 20 H Respiratory Pattern Blood Pressure 157/54 H 148/93 H 165/97 H Blood Pressure Mean 88 111 119 Blood Pressure Source Blood Pressure Position Blood Pressure Location Pulse Ox 95 95 98 Oxygen Delivery Method Nasal Cannula Nasal Cannula Nasal Cannula Oxygen Flow Rate (L/min) 2.5 2.5 2.5 06/04/25 02:00 06/04/25 03:00 06/04/25 04:00 Temperature 98.2 F Temperature Source Oral Pulse Rate 99 93 91 Respiratory Rate 20 H 19 H 19 H Respiratory Pattern Blood Pressure 140/103 H 146/86 H 161/99 H Blood Pressure Mean 115 106 119 Blood Pressure Source Blood Pressure Position Blood Pressure Location Pulse Ox 96 97 98 Oxygen Delivery Method Nasal Cannula Nasal Cannula Nasal Cannula Oxygen Flow Rate (L/min) 2.5 2.5 2.5 06/04/25 04:27 06/04/25 05:00 06/04/25 06:00 Temperature 98 F Temperature Source Pulse Rate 88 86 89 Respiratory Rate 19 H 18 18 Respiratory Pattern Blood Pressure 161/99 H 149/79 H 150/92 H Blood Pressure Mean 119 102 111 Blood Pressure Source Blood Pressure Position Blood Pressure Location Pulse Ox 97 98 100 Oxygen Delivery Method Nasal Cannula Nasal Cannula Oxygen Flow Rate (L/min) 2.5 2.5 06/04/25 07:19 06/04/25 07:25 06/04/25 07:25 Temperature 98.0 F Temperature Source Temporal Pulse Rate 97 90 Respiratory Rate 14 18 Respiratory Pattern Normal Blood Pressure 157/102 H Blood Pressure Mean 120 Blood Pressure Source Monitor Blood Pressure Position Semi-Fowlers Blood Pressure Location Right Arm Pulse Ox 97 93 Oxygen Delivery Method Nasal Cannula Nasal Cannula Oxygen Flow Rate (L/min) 2 2 06/04/25 09:14 06/04/25 10:41 06/04/25 10:43 Temperature 98.0 F Temperature Source Oral Pulse Rate 94 Respiratory Rate 16 Respiratory Pattern Blood Pressure 169/96 H Blood Pressure Mean 120 Blood Pressure Source Monitor Blood Pressure Position Semi-Fowlers Blood Pressure Location Right Arm Pulse Ox 97 Oxygen Delivery Method Nasal Cannula Oxygen Flow Rate (L/min) 2 2 2 06/04/25 13:40 Temperature Temperature Source Pulse Rate 95 Respiratory Rate 20 H Respiratory Pattern Tachypnea Blood Pressure Blood Pressure Mean Blood Pressure Source Blood Pressure Position Blood Pressure Location Pulse Ox Oxygen Delivery Method Oxygen Flow Rate (L/min) Weight Weight: 162 lb 3.2 oz Body Mass Index (BMI) 21.4 Physical Exam Narrative General: Alert, Oriented x3, Cooperative, No apparent distress HEENT: Atraumatic, PERRLA, EOMI, Normocephalic Oral: Moist Mucosa Neck: Supple, No JVD Lungs: Diminished, Normal air movement, No rhonchi, No wheeze, No rales Cardiovascular: Regular rate, Regular Rhythm, Normal S1, Normal S2, No murmurs Abdomen: Soft, Non Tender, Non-Distended, No Hepato-splenomegaly Extremities: No edema, Capillary Refill Less than 3 Seconds Skin: No rashes, No breakdown Musculoskeletal: No Tenderness to Palpation of Joints or Extremities Neurological: No focal neurological deficits, moves all extremities, NIH 0 Psych/Mental Status: Flat Results Lab / Micro Data 06/03/25 22:07 06/03/25 22:07 Labs: Laboratory Results - last 24 hr 06/03/25 22:07: WBC 6.5, RBC 4.50 L, Hgb 14.0, Hct 41.8, MCV 92.9, MCH 31.1, MCHC 33.5, RDW Std Deviation 43.4, RDW Coeff of Brian 12.8, Plt Count 254, MPV 9.7, Immature Gran % (Auto) 0.300, Neut % (Auto) 45.7 L, Lymph % (Auto) 29.9, [place] % (Auto) 14.0 H, Eos % (Auto) 9.0 H, Baso % (Auto) 1.1 H, Absolute Neuts (auto) 3.0, Absolute Lymphs (auto) 1.93, Nucleated RBC % 0, Sodium 145, Potassium 3.6, Chloride 102, Carbon Dioxide 34.2 H, Anion Gap 8, BUN 15, Creatinine 0.72, Estim Creat Clear Calc 98.31, Est GFR (MDRD) Non-Af 101, BUN/Creatinine Ratio 21.3 H, Glucose 98, Calcium 9.4 06/03/25 23:54: Urine Color Yellow, Urine Clarity Clear, Urine pH 7.0, Ur Specific [place] 1.015, Urine Protein Negative, Urine Glucose (UA) Normal, Urine Ketones Negative, Urine Occult Blood Negative, Urine Nitrite Negative, Urine Bilirubin Negative, Urine Urobilinogen Normal, Ur Leukocyte Esterase Negative, Urine RBC 0-5 SEEN, Urine WBC 0-5 SEEN, Ur Squamous Epith Cells 0 SEEN, Urine Bacteria 0 SEEN, Urine Mucus 0 SEEN Imaging Radiology Impression Brain CT 06/04/25 00:02 IMPRESSION: No intracranial hemorrhage. No mass effect or midline shift. Reading Location: [facility] Assessment & Plan Assessment/Plan (1) Dizziness: PLAN: Plan 1. Vertigo with tinnitus ? No other neurological issues ? Continue with meclizine ? Given the tinnitus with the vertigo possible vestibular neuritis, no hearing loss 2. Essential HTN ? Blood pressures are stable ? Resume Norvasc ? Will monitor and make adjustments as necessary 3. COPD ? Chronic respiratory failure ? Continue with Trelegy Ellipta 4. BPH with obstruction ? Stable ? Continue with Flomax 5. GERD ? Stable ? Continue with PPI DVT: Lovenox 75 minutes was spent on direct patient care, including documentation as well as chart review and collaboration with colleagues Charges/Coding Visit Charges Inpatient E&M: 67300 Init Hosp L3
[2025-06-04] MEDS: Ensure Plus High Protein 120 ML LIQUID PO (21:05)
[2025-06-04] MEDS: Albuterol 2.5 MG/3 ML VIAL.NEB. INHALATION (23:54)
[2025-06-05] VITALS (7 sets, daily range): BP systolic 125–157; BP diastolic 66–95; PULSE 78–99; RESP 16–22; TEMP 36.1–36.8; O2SAT 93–98
--- NOTE | 2025-06-05 00:21 | NURSING ---
Respiratory therapy notified this RN that pt was argumentative and expressing frustration about an inhaler. This RN to room. Explained to patient that it is against hospital policy to leave medications at the bedside d/t inability to track dose and frequency consumed by patient. Notified pt that he is able to take albuterol nebulizer every 2 hours. Educated on informing staff when needing albuterol.
[2025-06-05 06:17] LABS: Hematocrit 37.3 % (40-54); Hemoglobin 12.5 g/dL (13.0-16.5); Immature Granulocytes Count 0.010 X10^3/uL (0.0-0.0); Mean Corp Hgb Conc 33.5 g/dL (32-36); Mean Corpuscular Volume 93.3 fL (80-94); Mean Platelet Vol. 9.8 fl (6.2-12.0); NRBC Flagged by Analyzer 0 % (0-5); Platelet Count 208 K/mm3 (150-450); RBC Distribution Width CV 13.1 % (11.6-14.6); RBC Distribution Width SD 44.5 fl (35.1-43.9); Red Blood Count 4.00 M/mm3 (4.6-6.2); White Blood Count 5.7 K/mm3 (4.4-11.0)
[2025-06-05 06:32] LABS: Anion Gap 8 (7-18); BUN 14 mg/dL (4-19); BUN/Creat Ratio 17.3 RATIO (10-20); Calcium,Total 8.9 mg/dL (7.6-11.0); Carbon Dioxide 32.9 mmol/L (20.0-29.0); Chloride 102 mmol/L (96-106); Estimated Creatinine Clearance 95.80 ml/min (50-250); Glucose 115 mg/dL (70-99); Potassium 3.4 mmol/L (3.5-5.1)
[2025-06-05] MEDS: Budesonide Respules 0.5 MG/2 ML AMPUL.NEB. INHALATION ×2 (06:41→20:33)
[2025-06-05] MEDS: Ensure Plus High Protein 120 ML LIQUID PO ×3 (09:27→21:47)
[2025-06-05] MEDS: guaiFENesin/D-Methorphan TAB.SR.12H 1 TABLET PO ×2 (09:28→21:47)
--- NOTE | 2025-06-05 09:34 | MRI_ITS ---
PROCEDURE: BRAIN W/WO CONTRAST 06/05/2025 REASON FOR EXAM: VERTIGO WITH TINNITUS AND DOUBLE VISION, R/O CVA TECHNIQUE: Procedure Code: MRIBRWW Modality: MR Procedure: BRAIN W/WO CONTRAST Multiplanar and multisequence images were obtained. CONTRAST: Clariscan VOLUME: 14 mL COMPARISON: Head CT June 04, 2025 FINDINGS: Brain: At the right posterior medial brachium pontis there are 2 punctate foci of restricted diffusion consistent with ischemia. No hemorrhage or territorial ischemia seen. Diffusion: Abnormal as above Ventricles: Normal Major Intracranial Vessels: Unremarkable flow voids. No gross aneurysm. Sinuses: Right david bullosa. Otherwise clear. Mastoids: Clear Other: Bilateral lens implants. MRI/Brain W/WO Contrast IMPRESSION: 1. There are two punctate foci of restricted diffusion right posterior medial brachium pontis. This is in the vicinity of the medial longitudinal fasciculus (MLF*), and near the motor center of cranial ner ve 5. Correlate with ophthalmoplegia, diplopia, nystagmus, difficulty tracking. Note: MLF is a nerve tract associated with coordinating eye, head, neck movemen ts, vestibular nuclei and oculomotor nerves (integrates balance and vision). The findings and impression of the report were called directly to the charge nu Mercedes betancourt at 1:55 p.m. Eastern standard time. The physician was in a patient room at the time. She was to relay the informat ion as soon as possible. Reading Location: [id number]
--- NOTE | 2025-06-05 09:35 | PN.HOSP_ITS ---
Subjective Subjective Still with the tenderness which is a little bit improved in the double vision and room spinning sensation though it all is slightly improved today Objective Data Objective Data Vital Signs: Vital Signs Temp Pulse Resp BP Pulse Ox O2 Del Method O2 Flow Rate 98.3 F 78 18 145/95 H 98 Nasal Cannula 2 06/05/25 07:48 06/05/25 07:48 06/05/25 07:48 06/05/25 07:48 06/05/25 07:48 06/05/25 07:49 06/05/25 07:49 Oxygen Flow Rate (L/min) 2 Oxygen Delivery Method Nasal Cannula Weight: 162 lb 3.2 oz Body Mass Index (BMI) 21.4 Intake & Output: Intake and Output for Last 24 Hours 06/04/25 06/05/25 06/06/25 03:59 03:59 03:59 Intake Total 1000 / 1000 100 / 100 100 / 100 Output Total 400 / 400 200 / 200 Balance 1000 / 1000 -300 / -300 -100 / -100 Lab / Micro Data 06/05/25 05:35 06/05/25 05:35 Labs: Laboratory Results - last 24 hr 06/05/25 05:35: WBC 5.7, RBC 4.00 L, Hgb 12.5 L, Hct 37.3 L, MCV 93.3, MCH 31.3, MCHC 33.5, RDW Std Deviation 44.5 H, RDW Coeff of Brian 13.1, Plt Count 208, MPV 9.8, Immature Gran % (Auto) 0.200, Neut % (Auto) 61.5, Lymph % (Auto) 20.3, [place] % (Auto) 14.2 H, Eos % (Auto) 3.1, Baso % (Auto) 0.7, Absolute Neuts (auto) 3.5, Absolute Lymphs (auto) 1.16, Nucleated RBC % 0, Sodium 142, Potassium 3.4 L, Chloride 102, Carbon Dioxide 32.9 H, Anion Gap 8, BUN 14, Creatinine 0.79, Estim Creat Clear Calc 95.80, Est GFR (MDRD) Non-Af 99, BUN/Creatinine Ratio 17.3, G lucose 115 H, Calcium 8.9 Physical Exam Narrative General: Alert, Oriented x3, Cooperative, No apparent distress HEENT: Atraumatic, PERRLA, EOMI, Normocephalic Oral: Moist Mucosa Neck: Supple, No JVD Lungs: Diminished, Normal air movement, No rhonchi, No wheeze, No rales Cardiovascular: Regular rate, Regular Rhythm, Normal S1, Normal S2, No murmurs Abdomen: Soft, Non Tender, Non-Distended, No Hepato-splenomegaly Extremities: No edema, Capillary Refill Less than 3 Seconds Skin: No rashes, No breakdown Musculoskeletal: No Tenderness to Palpation of Joints or Extremities Neurological: No focal neurological deficits, moves all extremities, NIH 0 Psych/Mental Status: Flat Assessment & Plan Assessment/Plan (1) Dizziness: PLAN: Plan 1. Vertigo with tinnitus ? No other neurological issues ? Continue with meclizine ? Given the tinnitus with the vertigo possible vestibular neuritis, no hearing loss ? Given the continued symptoms we will obtain an MRI with and without contrast 2. Essential HTN ? Blood pressures are stable ? Resume Norvasc ? Will monitor and make adjustments as necessary 3. COPD ? Chronic respiratory failure ? Continue with Trelegy Ellipta 4. BPH with obstruction ? Stable ? Continue with Flomax 5. GERD ? Stable ? Continue with PPI DVT: Lovenox Charges/Coding Visit Charges Inpatient E&M: 04052 Subs Hosp L2
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
--- NOTE | 2025-06-05 15:08 | CASEMGMT ---
Discharge Planning A list of?SNF providers including quality and resource use data and consistent with the patient's preferred geographic region, medical needs, and insurance network was created in [facility] Guide.? This list was provided to the SW. Corie Pratt Discharge Planning Asst.
--- NOTE | 2025-06-05 15:15 | CASEMGMT ---
Social Work A list of?SNF providers including quality and resource use data and consistent with the patient's preferred geographic region, medical needs, and insurance network was created in [facility] Guide.?This list was provided to the patient. The patients first choice is TCU. SW made the referral to TCU. YOEL Michael
--- NOTE | 2025-06-05 15:20 | CASEMGMT ---
KELLEY Met with patient to complete KELLEY form. KELLEY form and its content were verbally explained and patient's questions were answered to the best of my ability.? Patient voiced understanding and signed KELLEY form.? Patient provided a copy of signed KELLEY form and original placed in patient's chart.? Patient had no further questions. Corie Pratt, Discharge Planning Asst
--- NOTE | 2025-06-05 16:09 | CASEMGMT ---
Social Work SW spoke with the patient about going to an [facility] after skilled rehab. SW spoke with him about going to a facility that has both. The patients choices were 1. [facility] [address] [facility] [facility]. [facility]. A referral will be sent to [facility]. SW made a referral on [facility] website for [facility]I waiver. YOEL Mccollum
--- NOTE | 2025-06-05 16:22 | CASEMGMT ---
RAY AL into pt room, pt friend Hi in the room. Pt agreeable to discussing DC planning with Hi present. Pt states he has an [employer] that he uses now and has a concentrator but he is unsure what agency. RAY AL reviewed previous notes, had [facility]. Called [facility], they stated they no longer service pt. Pt states his daughter has Paranoid Schizophrenia and she is not talking him at the moment. Pt friend states he's unsure if Pt dtr will let him move back in, if she doesn't is there somewhere the pt can go. SW working with patient on placement. Pt denies additional needs at this time.
--- NOTE | 2025-06-05 16:26 | CASEMGMT ---
Addendum entered by Corie Pratt 06/05/25 16:36: [facility] has accepted and will submit for precert. Original Note: Discharge Planning Referral sent via [facility] to [facility]. Corie Pratt DC Planning Asst.
[2025-06-05 16:54] LABS: Cholesterol 153 mg/dL (<=200); Low Density Lipoprotein Calc. 92 mg/dL; Triglycerides 76 mg/dL; Very Low Density Lipoprotein 15 mg/dL (5-40); cholesterol:hdl ratio screen 3.33
[2025-06-06] VITALS (9 sets, daily range): BP systolic 147–169; BP diastolic 88–97; PULSE 80–105; RESP 16–20; TEMP 36.4–37.6; O2SAT 97–99
[2025-06-06] MEDS: Budesonide Respules 0.5 MG/2 ML AMPUL.NEB. INHALATION ×2 (07:37→20:56)
[2025-06-06 07:49] LABS: Hematocrit 38.0 % (40-54); Hemoglobin 12.6 g/dL (13.0-16.5); Immature Granulocytes Count 0.010 X10^3/uL (0.0-0.0); Mean Corp Hgb Conc 33.2 g/dL (32-36); Mean Corpuscular Volume 94.1 fL (80-94); Mean Platelet Vol. 9.8 fl (6.2-12.0); NRBC Flagged by Analyzer 0 % (0-5); Platelet Count 198 K/mm3 (150-450); RBC Distribution Width CV 13.0 % (11.6-14.6); RBC Distribution Width SD 44.7 fl (35.1-43.9); Red Blood Count 4.04 M/mm3 (4.6-6.2); White Blood Count 5.8 K/mm3 (4.4-11.0)
[2025-06-06 08:16] LABS: Anion Gap 9 (7-18); BUN 12 mg/dL (4-19); BUN/Creat Ratio 17.6 RATIO (10-20); Calcium,Total 8.8 mg/dL (7.6-11.0); Carbon Dioxide 33.2 mmol/L (20.0-29.0); Chloride 102 mmol/L (96-106); Estimated Creatinine Clearance 95.80 ml/min (50-250); Glucose 104 mg/dL (70-99); Potassium 3.3 mmol/L (3.5-5.1)
[2025-06-06] MEDS: guaiFENesin/D-Methorphan TAB.SR.12H 1 TABLET PO ×2 (09:08→20:46)
[2025-06-06] MEDS: Ensure Plus High Protein 120 ML LIQUID PO ×3 (09:08→20:46)
--- NOTE | 2025-06-06 09:50 | CASEMGMT ---
Social Work SW spoke with the patient and informed him that [facility] has accepted him and have requested insurance approval. SW explained SW submitted a request for [facility] for the patient and they will be calling him to complete the assessment. YOEL Mccollum
--- NOTE | 2025-06-06 10:17 | PCM.PN.HOSP ---
Subjective Subjective Dizziness and tinnitus continue to improve but not resolved Objective Data Objective Data Vital Signs: Vital Signs Temp Pulse Resp BP Pulse Ox O2 Del Method O2 Flow Rate 98.5 F 80 16 169/92 H 99 Nasal Cannula 2 06/06/25 08:02 06/06/25 08:02 06/06/25 08:02 06/06/25 08:02 06/06/25 08:02 06/06/25 08:21 06/06/25 08:21 Oxygen Flow Rate (L/min) 2 Oxygen Delivery Method Nasal Cannula Weight: 162 lb 3.2 oz Body Mass Index (BMI) 21.4 Intake & Output: Intake and Output for Last 24 Hours 06/05/25 06/06/25 06/07/25 03:59 03:59 03:59 Intake Total 100 / 100 420 / 420 Output Total 400 / 400 1060 / 1060 650 / 650 Balance -300 / -300 -640 / -640 -650 / -650 Lab / Micro Data 06/06/25 06:56 06/06/25 06:56 Labs: Laboratory Results - last 24 hr 06/05/25 05:35: Triglycerides 76, Cholesterol 153, LDL Cholesterol, Calc 92, VLDL Cholesterol 15, HDL Cholesterol 46, Cholesterol/HDL Ratio 3.33 06/06/25 06:56: WBC 5.8, RBC 4.04 L, Hgb 12.6 L, Hct 38.0 L, MCV 94.1 H, MCH 31.2, MCHC 33.2, RDW Std Deviation 44.7 H, RDW Coeff of Brian 13.0, Plt Count 198, MPV 9.8, Immature Gran % (Auto) 0.200, Neut % (Auto) 60.9, Lymph % (Auto) 20.4, [place] % (Auto) 11.8 H, Eos % (Auto) 5.7 H, Baso % (Auto) 1.0, Absolute Neuts (auto) 3.5, Absolute Lymphs (auto) 1.18, Nucleated RBC % 0, Sodium 144, Potassium 3.3 L, Chloride 102, Carbon Dioxide 33.2 H, Anion Gap 9, BUN 12, Creatinine 0.71, Estim Creat Clear Calc 95.80, Est GFR (MDRD) Non-Af 102, BUN/Creatinine Ratio 17.6, Glucose 104 H, Calcium 8.8 Radiography Diagnostic Testing: Radiology Impression Brain MRI 06/05/25 09:34 IMPRESSION: 1. There are two punctate foci of restricted diffusion right posterior medial brachium pontis. This is in the vicinity of the medial longitudinal fasciculus (MLF*), and near the motor center of cranial nerve 5. Correlate with ophthalmoplegia, diplopia, nystagmus, difficulty tracking. Note: MLF is a nerve tract associated with coordinating eye, head, neck movements, vestibular nuclei and oculomotor nerves (integrates balance and vision). The findings and impression of the report were called directly to the charge nurseMercedes at 1:55 p.m. Eastern standard time. The physician was in a patient room at the time. She was to relay the information as soon as possible. Reading Location: [facility] Physical Exam Narrative General: Alert, Oriented x3, Cooperative, No apparent distress HEENT: Atraumatic, PERRLA, EOMI, Normocephalic Oral: Moist Mucosa Neck: Supple, No JVD Lungs: Diminished, Normal air movement, No rhonchi, No wheeze, No rales Cardiovascular: Regular rate, Regular Rhythm, Normal S1, Normal S2, No murmurs Abdomen: Soft, Non Tender, Non-Distended, No Hepato-splenomegaly Extremities: No edema, Capillary Refill Less than 3 Seconds Skin: No rashes, No breakdown Musculoskeletal: No Tenderness to Palpation of Joints or Extremities Neurological: Continues to complain of double vision, and he does have sciatica chronically which limits his lower extremity movements, NIH of 2 lower extremity deficiencies and sensory loss is due to sciatica not his stroke Psych/Mental Status: Normal affect, appropriate Assessment & Plan Assessment/Plan (1) Dizziness: PLAN: Plan 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 Continue with aspirin and Lipitor ? Consult neurology ? PT/OT ? Continue with meclizine ? Given the tinnitus with the vertigo possible vestibular neuritis, no hearing loss 2. Essential HTN ? Blood pressures are stable ? Resume Norvasc ? Will monitor and make adjustments as necessary 3. COPD ? Chronic respiratory failure ? Continue with Trelegy Ellipta 4. BPH with obstruction ? Stable ? Continue with Flomax 5. GERD ? Stable ? Continue with PPI DVT: Lovenox Charges/Coding Visit Charges Inpatient E&M: 18578 Subs Hosp L2 NIHSS NIHSS Nursing Documentation NIHSS Nursing Documentation: NIHSS: Ischemic Stroke/TIA Start: 06/05/25 18:27 Freq: Q6H Status: Active Protocol: Activity Type Activity Date Activity User E-sign Co-sign Detail Recorded Client Recorded Date Recorded By Document 06/06/25 08:02 KG [id number] 06/06/25 08:02 KG 06/06/25 08:02 NIH Stroke Scale [NIHSS] A score of 0 is normal or asymptomatic . Total possible score is 42. Inpatient: RN or Physician to activate a stroke alert for onset of new stroke symptoms or with NIHSS increase >/= 3 points. Following change in neurological status, NIHSS will be performed per physician order or more frequently PRN. -1a. Level of Consciousness 0 - Alert; keenly responsive -1b. LOC Questions 0 - Answers BOTH questions correctly -1c. LOC Commands 0 - Performs BOTH tasks correctly -2. Best Gaze 1 - Partial gaze palsy; -3. Visual 1 - Partial hemianopia -4. Facial Palsy 0 - Normal symmetrical movements -5a. Left Arm 0 - No drift; arm holds 90 ( or 45) degrees for full 10 seconds -5b. Right Arm 0 - No drift; arm holds 90 ( or 45) degrees for full 10 seconds -6a. Left Leg 2 - Some effort against gravity; -'UN' explanation sciatic nerve dysfunction at baseline. -6b. Right Leg 0 - No drift; leg holds 30- degree position for full 5 seconds -7. Limb Ataxia 1 - Present in 1 limb -8. Sensory 1 - Mild-to- moderate sensory loss; -9. Best Language 0 - No aphasia; normal -10. Dysarthria 0 - Normal -11. Extinction and Inattention 0 - No abnormality -Total 6 Query Text:A score of 0 is normal or asymptomatic. Total possible score is 42 . ED: Notify Physician for NIHSS increase by > / = 3 points. Inpatient: RN or Physician to activate a stroke alert for NIHSS increase of > / = 3 points. Coma Scale [Assess] -Eye Opening Spontaneous -Motor Obeys Commands -Verbal Oriented [Total] -Coma Scale Total 15
--- NOTE | 2025-06-06 10:56 | ECHOL_ITS ---
Reason For Study Reason For Study: CVA Procedure This was a limited 2D transthoracic echocardiogram. Exam performed portable in patient room. Left Ventricle Normal-sized left ventricle. Left ventricular EF by 3D: 40%. LV systolic function mildly reduced. Grade 1 diastolic dysfunction, normal left atrial pressure. Inferior, inferoseptal, and inferolateral wall hypokinesis. Right Ventricle Normal right ventricle. Normal systolic function. Unable to estimate RV systolic pressure due to insufficient tricuspid regurgitant envelope. Atria The left and right atria are normal. Estimated RA pressure: 3 mmHg. Bubble contrast study is negative for PFO/ASD. Mitral Valve Normal mitral valve. No significant mitral regurgitation or mitral stenosis by color Doppler. Tricuspid Valve Normal tricuspid valve. Trace tricuspid regurgitation. No tricuspid stenosis. Aortic Valve No significant aortic stenosis or aortic regurgitation by color flow Doppler. Pulmonic Valve The pulmonic valve is not well visualized. Great Vessels The aortic root is not well visualized. Pericardium/Pleural No pericardial effusion. Epicardial fat. Medication Performed a rapid injection of agitated mix of 9 cc saline and 1cc air to assess for atrial septal defect. MMode/2D Measurements & Calculations LAV(MOD-sp4): 33.7 ml LVAd ap4: 30.5 cm2 LVAd ap2: 32.4 cm2 LVLd ap4: 8.5 cm LVLd ap2: 9.1 cm EDV(MOD-sp4): 89.7 ml EDV(MOD-sp2): 95.3 ml EDV(sp4-el): 92.7 ml EDV(sp2-el): 97.5 ml LVAs ap4: 21.7 cm2 LVAs ap2: 22.3 cm2 LVLs ap4: 7.4 cm LVLs ap2: 7.9 cm ESV(MOD-sp4): 52.3 ml ESV(MOD-sp2): 54.9 ml ESV(sp4-el): 53.7 ml ESV(sp2-el): 53.9 ml EF(MOD-sp4): 41.7 % EF(MOD-sp2): 42.4 % EF(sp4-el): 42.1 % SV(MOD-sp4): 37.4 ml SV(MOD-sp2): 40.4 ml EDV(MOD-bp): 96.8 ml SI(MOD-sp4): 19.0 ml/m2 SI(MOD-sp2): 20.5 ml/m2 ESV(MOD-bp): 54.4 ml EF(MOD-bp): 43.8 % SV(sp4-el): 39.0 ml LA A4 area: 13.9 cm2 RA A4 area: 10.5 cm2 Time Measurements MV dec time: 0.23 sec Doppler Measurements & Calculations MV E max tristan: 85.0 cm/sec Lat Peak E' Tristan: 13.8 cm/sec Med Peak E' Tristan: 7.2 cm/sec MV A max tristan: 136.0 cm/sec E/E' lat: 6.2 E/E' med: 11.9 MV E/A: 0.63 MV dec slope: 364.3 cm/sec2 ECHO/Echo, Limited Study Interpretation Summary Limited echocardiogram. Left ventricular systolic function is mildly reduced, with EF: 40% by 3D Wall motion abnormalities as above Grade 1 diastolic dysfunction Normal RV systolic function No evident hemodynamically significant valvular disease within limits of study Negative bubble study Ordering Physician: Kvng King Referring Physician: Iker Blackwell Performed By: Sravan Montiel RDCS
--- NOTE | 2025-06-06 12:35 | NEURO.CONS ---
Assessment and Plan: Neuro Assessment/Plan TELESTROKE ATTENDING CONSULT NOTE (AUDIO/VIDEO INTERFACE) 65 y/o man with h/o prostrate cancer s/p radiation p/w nausea, vomiting, and dizziness that also been accompanied by tinnitus. No significant change in symptoms based on position or eye movement. No weakness or numbness and tingling in bilateral upper or lower extremities. CT head- no acute intracranial process. MRI Brain - two punctate foci of restricted diffusion right posterior medial brachium pontis. LDL-92. Today, he still reports of binocular diplopia along with mild ataxia of LUE. He reports of chronic weakness and numbness of LLE for the last many years. Diagnosis: Right medial brachium pontis stroke, cryptogenic Plan: ASA and statin. Follow up CTA head and neck along with TTE. Check A1c. 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 Control of vascular risk factors. I personally attended this patient and spent a total time of 71 minutes evaluating this patient including clinical assessment, review of chart, medical history imaging, and determining appropriate treatment and workup. HPI Consult Data Date of Consult: 06/06/25 HPI Narrative HPI Narrative: 65 y/o man with h/o prostrate cancer s/p radiation p/w nausea, vomiting, and dizziness that also been accompanied by tinnitus. No significant change in symptoms based on position or eye movement. No weakness or numbness and tingling in bilateral upper or lower extremities. CT head- no acute intracranial process. MRI Brain - two punctate foci of restricted diffusion right posterior medial brachium pontis. LDL-92. Today, he still reports of binocular diplopia along with mild ataxia of LUE. He reports of chronic weakness and numbness of LLE for the last many years. [facility] Medical History History of substance use History of alcohol abuse Smoker Emphysema lung Asthma COPD (chronic obstructive pulmonary disease) Hypertension Migraines TIA (transient ischemic attack) Adverse reaction to REEMA inhibitor drug Home Medications ?Medication ?Instructions ?Recorded ?Last Taken ?Type albuterol sulfate 90 mcg/actuation 1 - 2 puff inhalation Q4H PRN PRN 01/02/24 Unknown Rx aerosol inhaler (Ventolin HFA) Wheezing #1 ea fluticasone fur. 100 mcg-umeclid 1 ea inhalation DAILY breathing 01/21/24 Unknown History 62.5 mcg-vilant 25 mcg inhalat.powder (Trelegy Ellipta) omeprazole 20 mg capsule,delayed 20 mg PO DAILY reflux 01/21/24 Unknown History release tamsulosin 0.4 mg capsule 0.4 mg PO DAILY prostate 01/21/24 Unknown History amlodipine 2.5 mg tablet (Norvasc) 2.5 mg PO DAILY bp #30 tabs 01/22/24 Unknown Rx diphenhydramine HCl 25 mg capsule 50 mg (2 x 25 mg) PO TID PRN 01/22/24 Unknown Rx allergic reaction #20 caps cyclobenzaprine 10 mg tablet 10 mg PO BID spasm 05/17/24 Unknown History dextromethorphan-guaifenesin 30 1 tab PO Q12H PRN cough #14 tabs 05/18/24 Unknown Rx mg-600 mg tablet extended [id number] hr (Mucus DM) nystatin 100,000 unit/mL oral 500,000 unit (5 mL) PO 4X/DAY 7 05/18/24 Unknown Rx suspension days #140 mL doxycycline hyclate 100 mg capsule 100 mg PO BID 10 days #20 caps 05/31/24 Unknown Rx ondansetron 4 mg disintegrating 4 mg PO Q8H PRN PRN Nausea #10 tabs 07/05/24 Unknown Rx tablet OXYGEN - Supplemental ([facility] hypoxia 06/05/25 Unknown History INFORMATIONAL USE ONLY) Allergy/AdvReac Type Severity Reaction Status Date / Time lisinopril Allergy Severe Angioedema Verified 06/03/25 22:03 codeine Allergy Mild Itching Verified 06/03/25 22:03 Family History Mother Uterine cancer Father ETOH abuse Surgical History History of testicular surgery History of gastric surgery History of bilateral inguinal hernia repair History of total right hip replacement Social History household members: other details: His daugher and his grandson live with him. Smoking Status: Light Smoker (<10/day) how long ago did patient quit smoking: Patient prior smoked up to 2 ppd, started at age 9, down to 1 pack max/week quit status: considering quitting alcohol intake: former substance use type: former substance user Vital Signs Vital Signs Vital Signs: 06/05/25 13:47 06/05/25 14:09 06/05/25 14:13 Temperature 98.3 F Temperature Source Oral Pulse Rate 80 99 Pulse Strength Respiratory Rate 16 16 Respiratory Effort Normal Non-Labored Respiratory Depth Respiratory Pattern Normal Blood Pressure 144/93 H Blood Pressure Mean 110 Blood Pressure Source Blood Pressure Position Blood Pressure Location Pulse Ox 97 Oxygen Delivery Method Nasal Cannula Nasal Cannula Oxygen Flow Rate (L/min) 2 2 06/05/25 20:16 06/05/25 20:17 06/05/25 20:36 Temperature Temperature Source Pulse Rate 96 Pulse Strength Normal (2+) Respiratory Rate 22 H Respiratory Effort Normal Non-Labored Respiratory Depth Normal Respiratory Pattern Normal Tachypnea Blood Pressure Blood Pressure Mean Blood Pressure Source Blood Pressure Position Blood Pressure Location Pulse Ox Oxygen Delivery Method Nasal Cannula Oxygen Flow Rate (L/min) 2 06/05/25 21:00 06/06/25 02:11 06/06/25 03:00 Temperature 97.9 F 97.6 F L Temperature Source Temporal Temporal Pulse Rate 94 93 85 Pulse Strength Respiratory Rate 16 20 H 16 Respiratory Effort Respiratory Depth Respiratory Pattern Normal Blood Pressure 157/84 H 148/88 H Blood Pressure Mean 108 108 Blood Pressure Source Monitor Monitor Blood Pressure Position Semi-Fowlers Semi-Fowlers Blood Pressure Location Right Arm Right Arm Pulse Ox 97 98 Oxygen Delivery Method Nasal Cannula Nasal Cannula Oxygen Flow Rate (L/min) 2 2 06/06/25 04:08 06/06/25 07:38 06/06/25 07:38 Temperature Temperature Source Pulse Rate 96 Pulse Strength Respiratory Rate 20 H Respiratory Effort Normal Non-Labored Respiratory Depth Normal Respiratory Pattern Normal Tachypnea Blood Pressure Blood Pressure Mean Blood Pressure Source Blood Pressure Position Blood Pressure Location Pulse Ox 98 Oxygen Delivery Method Nasal Cannula Nasal Cannula Oxygen Flow Rate (L/min) 2 2 06/06/25 08:02 06/06/25 08:21 06/06/25 11:37 Temperature 98.5 F Temperature Source Oral Pulse Rate 80 Pulse Strength Respiratory Rate 16 Respiratory Effort Normal Non-Labored Respiratory Depth Respiratory Pattern Blood Pressure 169/92 H Blood Pressure Mean 117 Blood Pressure Source Monitor Blood Pressure Position Supine Blood Pressure Location Pulse Ox 99 Oxygen Delivery Method Nasal Cannula Nasal Cannula Oxygen Flow Rate (L/min) 2 2 2 06/06/25 12:05 Temperature Temperature Source Pulse Rate Pulse Strength Respiratory Rate Respiratory Effort Respiratory Depth Respiratory Pattern Blood Pressure Blood Pressure Mean Blood Pressure Source Blood Pressure Position Blood Pressure Location Pulse Ox Oxygen Delivery Method Oxygen Flow Rate (L/min) 2 Weight Weight: 73.573 kg Body Mass Index (BMI) 21.4 EEG Results Procedure Details EEG Procedure Details: WOLF TURCIOS Jr. is a 65 year old M with a past medical history of , who presents for evaluation of Electroencephalogram on DATE at TIME Physical Exam Narrative General: The patient appears nutritionally appropriate, well-groomed, and appears comfortable in no acute distress. Mental Status:? The patient?s mental status was normal including orientation.? Language was intact.? Cranial nerves: binocular diplopia. Visual sullivan full, and extra-ocular motion was intact. Symmetric face. Motor: Normal strength in all extremities other than chronic LLE weakness - 3/5 Sensation: Intact to touch in all extremities other than chronic decrease sensation in LLE.? Coordination:? Mild ataxia noticed in LUE. Gait:? deferred. Lab / Micro Data 06/06/25 06:56 06/06/25 06:56 Labs: Laboratory Results - last 24 hr 06/05/25 05:35: Triglycerides 76, Cholesterol 153, LDL Cholesterol, Calc 92, VLDL Cholesterol 15, HDL Cholesterol 46, Cholesterol/HDL Ratio 3.33 06/06/25 06:56: WBC 5.8, RBC 4.04 L, Hgb 12.6 L, Hct 38.0 L, MCV 94.1 H, MCH 31.2, MCHC 33.2, RDW Std Deviation 44.7 H, RDW Coeff of Brian 13.0, Plt Count 198, MPV 9.8, Immature Gran % (Auto) 0.200, Neut % (Auto) 60.9, Lymph % (Auto) 20.4, [place] % (Auto) 11.8 H, Eos % (Auto) 5.7 H, Baso % (Auto) 1.0, Absolute Neuts (auto) 3.5, Absolute Lymphs (auto) 1.18, Nucleated RBC % 0, Sodium 144, Potassium 3.3 L, Chloride 102, Carbon Dioxide 33.2 H, Anion Gap 9, BUN 12, Creatinine 0.71, Estim Creat Clear Calc 95.80, Est GFR (MDRD) Non-Af 102, BUN/Creatinine Ratio 17.6, Glucose 104 H, Calcium 8.8 Imaging Radiology Impression Brain MRI 06/05/25 09:34 IMPRESSION: 1. There are two punctate foci of restricted diffusion right posterior medial brachium pontis. This is in the vicinity of the medial longitudinal fasciculus (MLF*), and near the motor center of cranial nerve 5. Correlate with ophthalmoplegia, diplopia, nystagmus, difficulty tracking. Note: MLF is a nerve tract associated with coordinating eye, head, neck movements, vestibular nuclei and oculomotor nerves (integrates balance and vision). The findings and impression of the report were called directly to the charge nurse, Mercedes at 1:55 p.m. Eastern standard time. The physician was in a patient room at the time. She was to relay the information as soon as possible. Reading Location: [facility] Active Medications Active Medications Active Medications: Current Medications Generic Name Dose Route Start Last Admin Trade Name Freq PRN Reason Stop Dose Admin Acetaminophen 650 mg 06/04/25 06:59 06/06/25 01:59 Acetaminophen 325 Mg Tablet PO 650 mg Q6H PRN PRN Administration Pain 1-10 Or Fever>100.7 Albuterol Sulfate 2.5 mg 06/04/25 23:33 06/04/25 23:54 Albuterol 2.5 Mg/3 Ml Vial.Neb. INHALATION 2.5 mg Q2H PRN PRN Administration SOB &/OR WHEEZING Albuterol/Ipratropium 3 ml 06/04/25 07:15 06/06/25 07:37 Ipratropium/Albuterol Sulfate 3 Ml Ampul.Neb INHALATION 3 ml Q6HWA.RT MARK Administration Amlodipine Besylate 2.5 mg 06/04/25 10:00 06/06/25 09:09 Amlodipine 2.5 Mg Tablet PO 2.5 mg DAILY MARK Administration Protocol Aspirin 81 mg 06/06/25 08:00 06/06/25 09:08 Aspirin 81 Mg Tab.Chew PO 81 mg BREAKFAST MARK Administration Atorvastatin Calcium 80 mg 06/05/25 22:00 06/05/25 21:46 Atorvastatin Calcium 80 Mg Tablet PO 80 mg QHS MARK Administration Budesonide 0.5 mg 06/04/25 07:15 06/06/25 07:37 Budesonide Respules 0.5 Mg/2 Ml Ampul.Neb. INHALATION 0.5 mg Q12H.RT MARK Administration Cyclobenzaprine HCl 10 mg 06/06/25 10:00 06/06/25 09:07 Cyclobenzaprine Hcl 10 Mg Tablet PO 10 mg BID MARK Administration Enoxaparin Sodium 40 mg 06/05/25 10:00 06/06/25 09:08 Enoxaparin 40 Mg/0.4 Ml Syringe SC 40 mg DAILY MARK Administration Guaifenesin 1 tablet 06/04/25 10:00 06/06/25 09:08 Guaifenesin/D-Methorphan Tab.Sr.12h PO 1 tablet Q12 MARK Administration Sodium Chloride 250 mls @ 15 mls/hr 06/04/25 07:04 IV .[id number] PRN Saline Flush Sodium Chloride 250 mls @ 15 mls/hr 06/04/25 07:04 IV .[id number] PRN Additional IVPB Infusion Sodium Chloride 250 mls @ 15 mls/hr 06/05/25 05:28 IV .[id number] PRN Saline Flush Sodium Chloride 250 mls @ 15 mls/hr 06/05/25 05:28 IV .[id number] PRN Additional IVPB Infusion Meclizine HCl 25 mg 06/04/25 15:08 Meclizine Hcl 25 Mg Tablet PO TID PRN PRN DIZZINESS Melatonin 3 mg 06/04/25 06:59 Melatonin 3 Mg Tablet PO QHS PRN PRN INSOMNIA Nutritional Formula (Lactose Free) 120 ml 06/04/25 18:00 06/06/25 09:08 Ensure Plus High Protein 120 Ml Liquid PO 120 ml 4X/DAY MARK Administration Ondansetron HCl 4 mg 06/04/25 06:59 Ondansetron 4 Mg/2 Ml Vial IV Q8H PRN PRN NAUSEA/VOMITING Oxycodone HCl 5 mg 06/04/25 07:11 Oxycodone 5 Mg Tablet PO Q6H PRN pain Pantoprazole Sodium 20 mg 06/04/25 10:00 06/06/25 09:09 Pantoprazole Sodium 20 Mg Tablet PO 20 mg DAILY MARK Administration Senna/Docusate Sodium 2 tablet 06/04/25 06:59 Senna/Docusate Sodium 1 Tablet PO BID PRN PRN Constipation Sodium Chloride 10 - 40 ml 06/04/25 07:04 0.9% Saline Lock 10 Ml Syringe IV UD PRN SALINE FLUSH Sodium Chloride 10 - 40 ml 06/05/25 05:28 0.9% Saline Lock 10 Ml Syringe IV UD PRN SALINE FLUSH Tamsulosin HCl 0.4 mg 06/04/25 10:00 06/06/25 09:08 Tamsulosin Hcl 0.4 Mg Capsule PO 0.4 mg DAILY MARK Administration NIHSS NIHSS Nursing Documentation NIHSS Nursing Documentation: NIHSS: Ischemic Stroke/TIA Start: 06/05/25 18:27 Freq: Q6H Status: Active Protocol: Activity Type Activity Date Activity User E-sign Co-sign Detail Recorded Client Recorded Date Recorded By Document 06/06/25 08:02 KG [id number] 06/06/25 08:02 KG 06/06/25 08:02 NIH Stroke Scale [NIHSS] A score of 0 is normal or asymptomatic . Total possible score is 42. Inpatient: RN or Physician to activate a stroke alert for onset of new stroke symptoms or with NIHSS increase >/= 3 points. Following change in neurological status, NIHSS will be performed per physician order or more frequently PRN. -1a. Level of Consciousness 0 - Alert; keenly responsive -1b. LOC Questions 0 - Answers BOTH questions correctly -1c. LOC Commands 0 - Performs BOTH tasks correctly -2. Best Gaze 1 - Partial gaze palsy; -3. Visual 1 - Partial hemianopia -4. Facial Palsy 0 - Normal symmetrical movements -5a. Left Arm 0 - No drift; arm holds 90 ( or 45) degrees for full 10 seconds -5b. Right Arm 0 - No drift; arm holds 90 ( or 45) degrees for full 10 seconds -6a. Left Leg 2 - Some effort against gravity; -'UN' explanation sciatic nerve dysfunction at baseline. -6b. Right Leg 0 - No drift; leg holds 30- degree position for full 5 seconds -7. Limb Ataxia 1 - Present in 1 limb -8. Sensory 1 - Mild-to- moderate sensory loss; -9. Best Language 0 - No aphasia; normal -10. Dysarthria 0 - Normal -11. Extinction and Inattention 0 - No abnormality -Total 6 Query Text:A score of 0 is normal or asymptomatic. Total possible score is 42 . ED: Notify Physician for NIHSS increase by > / = 3 points. Inpatient: RN or Physician to activate a stroke alert for NIHSS increase of > / = 3 points. Coma Scale [Assess] -Eye Opening Spontaneous -Motor Obeys Commands -Verbal Oriented [Total] -Coma Scale Total 15 NIHSS 1a. Level of Consciousness: 0 - Alert; keenly responsive 1b. LOC Questions: 0 - Answers BOTH questions correctly 1c. LOC Commands: 0 - Performs BOTH tasks correctly 2. Best Gaze: 0 - Normal 3. Visual: 0 - No visual loss 4. Facial Palsy: 0 - Normal symmetrical movements 5a. Left Arm: 0 - No drift; arm holds 90 (or 45) degrees for full 10 seconds 5b. Right Arm: 0 - No drift; arm holds 90 (or 45) degrees for full 10 seconds 6a. Left Le - Some effort against gravity; 6b. Right Le - No drift; leg holds 30-degree position for full 5 seconds 7. Limb Ataxia: 1 - Present in 1 limb 8. Sensory: 1 - [id number] sensory loss; 9. Best Language: 0 - No aphasia; normal 10. Dysarthria: 0 - Normal 11. Extinction and Inattention: 0 - No abnormality Total: 4
--- NOTE | 2025-06-06 13:46 | CASEMGMT ---
Social Work SW provided the patient with resources such as [facility] resource card, the Cycle of Violence, Understanding the Cycle of Violence, Power and Control Wheel, and National Resources list. YOEL Mccollum
[2025-06-07 02:40] VITALS: BP 131/100; PULSE 97; RESP 16; TEMP 36.5; O2SAT 97
[2025-06-07 06:36] VITALS: PULSE 95; RESP 18; O2SAT 92
[2025-06-07] MEDS: Budesonide Respules 0.5 MG/2 ML AMPUL.NEB. INHALATION (06:36)
--- NOTE | 2025-06-07 07:08 | CT_ITS ---
PROCEDURE: CTA HEAD AND NECK W/ CONTRAST 06/07/2025 CT head without contrast REASON FOR EXAM: CVA TECHNIQUE: Procedure Code: CTCTA.HDNCK Modality: CT Procedure: CTA HEAD AND NECK W/ CONTRAST Multi planer CT head without contrast Multiplanar Sagittal and Coronal images were obtained. CONTRAST: Isovue 370 VOLUME: 100 mL One or more dose reduction techniques were used (e.g., Automated exposure control, adjustment of the mA and/or kV according to patient size, use of iterative reconstruction technique). RADIATION DOSE SUMMARY: CTDlvol: 18.83 mGy DLP: 1643.87 mGycm FINDINGS: CT head without contrast: No acute territorial infarction. No acute intracranial hemorrhage. No mass- effect or midline shift. Diffuse white matter hypodensities which are nonspecific but likely due to chronic small-vessel ischemia. Parenchymal volume loss consistent with brain atrophy. No ventriculomegaly. The orbits are unremarkable. The craniocervical junction is unremarkable. Aortic Arch: Normal size and branching pattern. No significant atherosclerotic plaque. Brachiocephalic and Subclavians: Unremarkable RIGHT Carotid: Right CCA: Unremarkable. Right ICA: Unremarkable. Right ECA: Unremarkable. LEFT Carotid: Left CCA: Unremarkable. Left ICA: Unremarkable. Left ECA: Unremarkable. Vertebrals: Codominant. Arise from the subclavians. Both vertebrals form the basilar. RIGHT Vertebral: Unremarkable. LEFT Vertebral: Unremarkable. Anatomy: [place] anatomy is normal. Aneurysm or avm: No intracranial aneurysms or large vascular malformations are identified. Anterior cerebral arteries: Unremarkable: Middle cerebral arteries: Unremarkable. Basilar artery: Unremarkable. Posterior cerebral arteries: Unremarkable. Other major branches of the posterior circulation: Unremarkable. Major venous structures: Unremarkable. Other findings: Neck: No lymphadenopathy. Lungs: Scarring in the left lung apex. Bones: Bones are unremarkable. CT/CTA Head AND Neck W/ Contrast IMPRESSION: No acute intracranial abnormalities. No hemodynamically significant stenosis in the head and neck. No aneurysm. Reading Location: [facility]
[2025-06-07 08:40] VITALS: BP 151/97; PULSE 100; RESP 18; TEMP 37.2; O2SAT 98
--- NOTE | 2025-06-07 08:47 | CASEMGMT ---
[facility] has obtained auth to admit. Corie Pratt DC Planning Asst.
--- NOTE | 2025-06-07 09:17 | PN.HOSP_ITS ---
Subjective Subjective No issues overnight, still with diplopia and mild dizziness Objective Data Objective Data Vital Signs: Vital Signs Temp Pulse Resp BP Pulse Ox O2 Del Method O2 Flow Rate 98.9 F 100 18 151/97 H 98 Nasal Cannula 2 06/07/25 08:40 06/07/25 08:40 06/07/25 08:40 06/07/25 08:40 06/07/25 08:40 06/07/25 08:40 06/07/25 08:40 Oxygen Flow Rate (L/min) 2 Oxygen Delivery Method Nasal Cannula Weight: 162 lb 3.2 oz Body Mass Index (BMI) 21.4 Intake & Output: Intake and Output for Last 24 Hours 06/06/25 06/07/25 06/08/25 03:59 03:59 03:59 Intake Total 420 / 420 Output Total 1060 / 1060 950 / 950 600 / 600 Balance -640 / -640 -950 / -950 -600 / -600 Lab / Micro Data 06/06/25 06:56 06/06/25 06:56 Radiography Diagnostic Testing: Radiology Impression Echocardiogram 06/06/25 10:56 Interpretation Summary Limited echocardiogram. Left ventricular systolic function is mildly reduced, with EF: 40% by 3D Wall motion abnormalities as above Grade 1 diastolic dysfunction Normal RV systolic function No evident hemodynamically significant valvular disease within limits of study Negative bubble study Ordering Physician: Kvng King Referring Physician: Iker Blackwell Performed By: Sravan Montiel RDCS Head/Neck CTA 06/07/25 07:08 IMPRESSION: No acute intracranial abnormalities. No hemodynamically significant stenosis in the head and neck. No aneurysm. Reading Location: [facility] OF [facility] Physical Exam Narrative General: Alert, Oriented x3, Cooperative, No apparent distress HEENT: Atraumatic, PERRLA, EOMI, Normocephalic Oral: Moist Mucosa Neck: Supple, No JVD Lungs: Diminished, Normal air movement, No rhonchi, No wheeze, No rales Cardiovascular: Regular rate, Regular Rhythm, Normal S1, Normal S2, No murmurs Abdomen: Soft, Non Tender, Non-Distended, No Hepato-splenomegaly Extremities: No edema, Capillary Refill Less than 3 Seconds Skin: No rashes, No breakdown Musculoskeletal: No Tenderness to Palpation of Joints or Extremities Neurological: Continues to complain of double vision, and he does have sciatica chronically which limits his lower extremity movements, NIH of 2 lower extremity deficiencies and sensory loss is due to sciatica not his stroke Psych/Mental Status: Normal affect, appropriate Assessment & Plan Assessment/Plan (1) Dizziness: PLAN: Plan 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 Continue with aspirin and Lipitor ? Appreciate neurology's recommendations ? Limited echo with negative bubble EF is slightly reduced to 40% ? CTA head and neck was unremarkable with no significant stenoses ? PT/OT, plan for SNF on discharge 2. Essential HTN ? Blood pressures are stable ? Resume Norvasc ? Will monitor and make adjustments as necessary 3. COPD ? Chronic respiratory failure ? Continue with Trelegy Ellipta 4. BPH with obstruction ? Stable ? Continue with Flomax 5. GERD ? Stable ? Continue with PPI DVT: Lovenox Charges/Coding Visit Charges Inpatient E&M: 72044 Subs Hosp L2 NIHSS NIHSS Nursing Documentation NIHSS Nursing Documentation: NIHSS: Ischemic Stroke/TIA Start: 06/05/25 18:27 Freq: Q6H Status: Active Protocol: Activity Type Activity Date Activity User E-sign Co-sign Detail Recorded Client Recorded Date Recorded By Document 06/07/25 02:40 [id number] 06/07/25 02:49 KW 06/07/25 02:40 NIH Stroke Scale [NIHSS] A score of 0 is normal or asymptomatic . Total possible score is 42. Inpatient: RN or Physician to activate a stroke alert for onset of new stroke symptoms or with NIHSS increase >/= 3 points. Following change in neurological status, NIHSS will be performed per physician order or more frequently PRN. -1a. Level of Consciousness 0 - Alert; keenly responsive -1b. LOC Questions 0 - Answers BOTH questions correctly -1c. LOC Commands 0 - Performs BOTH tasks correctly -2. Best Gaze 1 - Partial gaze palsy; -3. Visual 1 - Partial hemianopia -4. Facial Palsy 0 - Normal symmetrical movements -5a. Left Arm 0 - No drift; arm holds 90 ( or 45) degrees for full 10 seconds -5b. Right Arm 0 - No drift; arm holds 90 ( or 45) degrees for full 10 seconds -6a. Left Leg 1 - Drift; leg falls by the end of 5- seconds, but does not hit bed -6b. Right Leg 0 - No drift; leg holds 30- degree position for full 5 seconds -7. Limb Ataxia 0 - Absent -8. Sensory 1 - Mild-to- moderate sensory loss; -9. Best Language 0 - No aphasia; normal -10. Dysarthria 0 - Normal -11. Extinction and Inattention 0 - No abnormality -Total 4 Query Text:A score of 0 is normal or asymptomatic. Total possible score is 42 . ED: Notify Physician for NIHSS increase by > / = 3 points. Inpatient: RN or Physician to activate a stroke alert for NIHSS increase of > / = 3 points. Coma Scale [Assess] -Eye Opening Spontaneous -Motor Obeys Commands -Verbal Oriented [Total] -Coma Scale Total 15
[2025-06-07] MEDS: guaiFENesin/D-Methorphan TAB.SR.12H 1 TABLET PO (09:22)
--- NOTE | 2025-06-07 09:33 | TREXTCAR_ITS ---
Diet Diet Order/Speech Therapy: INPATIENT Hospital Diet / Speech Therapy Order(s) 06/04/25 06:59 Diet: Regular - General Food consistency:: Regular Liquid Consistency:: Regular/Thin Routine Orders/Code Status Routine Lab Work: CBC and BMP Code Status: Full Code DC O2, CPAP, BIPAP needs Home O2 Discharge instructions: No Therapies Physical Therapy: Eval and Treat Occupational Therapy: Eval and Treat Problem/Diagnosis (1) Dizziness: Status: Acute Code(s): R42 - Dizziness and giddiness Plan 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 Continue with aspirin and Lipitor ? Appreciate neurology's recommendations ? Limited echo with negative bubble EF is slightly reduced to 40% ? CTA head and neck was unremarkable with no significant stenoses ? PT/OT, plan for SNF on discharge 2. Essential HTN ? Blood pressures are stable ? Resume Norvasc ? Will monitor and make adjustments as necessary 3. COPD ? Chronic respiratory failure ? Continue with Trelegy Ellipta 4. BPH with obstruction ? Stable ? Continue with Flomax 5. GERD ? Stable ? Continue with PPI DVT: Lovenox Allergies/Procedures Done in Hospital Allergies lisinopril Allergy (Severe, Verified 06/03/25 22:03) Angioedema per Dr. Hdz 01-21-24 codeine Allergy (Mild, Verified 06/03/25 22:03) Itching Procedures: 2-D Echocardiogram Type of Care/Length of Stay Estimated LOS: Convalescent Care Less Than 30 days Type of Care Needed: Skilled Rehab Potential: Good Prognosis: Good Additional Orders/Day of Discharge Day of Discharge: 06/07/25 Dietary and Speech Recommendations Dietitian Recommendations/Changes: Continue with Regular - General diet for liberalization. Will order EPHP 120mL 4x/day with medpass to help increase oral intakes. Will continue to follow, monitor oral intakes and modify nutrition interventions as needed. Discharge Plan Admission Admit Date/Time: 06/04/25 06:37 Attending Provider: Kvng King Primary Care Provider: Iker Blackwell Consulting Providers: Ben Lu; Rudolph Partida; Imelda Dale; Aura Hines; Kay Chambers; My Zuluaga; Vivek Flynn; Nicole Hicks; Negro Locke; Max Perez; Chi Beatty; Mirella Steel; Lucy Robison; Arcadio Tom; Xin Lloyd; Eric Costa; Glenn David; Chad Rebolledo; Faiban Chaudhry; Olegario Lemus; Bernadette Serrano; Griffin Escalante Discharge Orders/Prescriptions Prescriptions: New atorvastatin 80 mg Tablet 80 mg PO QHS Qty: 0 0RF aspirin 81 mg Tablet,Chewable 81 mg PO BREAKFAST Qty: 0 0RF Continued cyclobenzaprine 10 mg tablet 10 mg PO BID Mucus DM 30-600 mg tablet extended release 12 hr 1 tab PO Q12H PRN (Reason: cough) Qty: 14 0RF OXYGEN - Supplemental ([facility] INFORMATIONAL USE ONLY) Patient Comments: pt states he uses 3L at home and doesn't know who he gets it through albuterol sulfate [Ventolin HFA] 90 mcg/actuation HFA aerosol inhaler 1 - 2 puff inhalation Q4H PRN PRN (Reason: Wheezing) Qty: 1 0RF Trelegy Ellipta 100-62.5-25 mcg blister with device 1 ea inhalation DAILY tamsulosin 0.4 mg capsule 0.4 mg PO DAILY omeprazole 20 mg capsule,delayed release(DR/EC) 20 mg PO DAILY diphenhydramine HCl 25 mg capsule 50 mg PO TID PRN (Reason: allergic reaction) Qty: 20 0RF amlodipine [Norvasc] 2.5 mg tablet 2.5 mg PO DAILY Qty: 30 0RF Discontinued nystatin 100,000 unit/mL Suspension 500,000 unit PO 4X/DAY 7 Days Qty: 140 0RF ondansetron 4 mg tablet,disintegrating 4 mg PO Q8H PRN PRN (Reason: Nausea) Qty: 10 0RF doxycycline hyclate 100 mg capsule 100 mg PO BID 10 Days Qty: 20 0RF Other Ambulatory Orders: 30 Day Event Recorder Preventi (Urgent) Timeframe: 1 Day Facility: [facility] - Location: Cardiovascular Services Ordered By: Dr. Kvng King Referrals / Follow Up: Iker Blackwell MD [Primary Care Provider, Family Practice] Disposition Disposition (needs filled in before D/C Order can be placed): Assisted Facility
--- NOTE | 2025-06-07 09:38 | PCM.DC.SUM ---
Providers Date of Admission: 06/04/25 Primary Care Physician: Iker Blackwell MD Consultations 06/05/25 13:57 Consult: Tele-Neurology Routine Consulting Provider: [facility] Reason for Consult: acute brainstem infarct EMERGENT Consult: No MD Notified: Yes Date Notified: 06/05/25 Time Notified: 13:57 Method of Notification: Answering Service Nursing Unit Staff Notify [facility] of Tele-Neurology Consult: Yes Reason For Visit: DIZZINESS Diagnosis Discharge Diagnosis (1) Dizziness: Status: Acute Code(s): R42 - Dizziness and giddiness Medications at Discharge Home Medications albuterol sulfate 90 mcg/actuation aerosol inhaler (Ventolin HFA) 1 - 2 puff inhalation Q4H PRN PRN Wheezing #1 ea 01/02/24 fluticasone fur. 100 mcg-umeclid 62.5 mcg-vilant 25 mcg inhalat.powder (Trelegy Ellipta) 1 ea inhalation DAILY breathing 01/21/24 omeprazole 20 mg capsule,delayed release 20 mg PO DAILY reflux 01/21/24 tamsulosin 0.4 mg capsule 0.4 mg PO DAILY prostate 01/21/24 amlodipine 2.5 mg tablet (Norvasc) 2.5 mg PO DAILY bp #30 tabs 01/22/24 diphenhydramine HCl 25 mg capsule 50 mg (2 x 25 mg) PO TID PRN allergic reaction #20 caps 01/22/24 cyclobenzaprine 10 mg tablet 10 mg PO BID spasm 05/17/24 dextromethorphan-guaifenesin 30 mg-600 mg tablet extended [id number] hr (Mucus DM) 1 tab PO Q12H PRN cough #14 tabs 05/18/24 OXYGEN - Supplemental ([facility] INFORMATIONAL USE ONLY) hypoxia 06/05/25 aspirin 81 mg chewable tablet 81 mg PO BREAKFAST #0 tabs 06/07/25 atorvastatin 80 mg tablet 80 mg PO QHS #0 tabs 06/07/25 Hospital Course Operations None Procedures 2-D Echocardiogram Summary of Care Provided Minutes Spent on Discharge: 36 Hospital Course: Per HPI: WOLF TURCIOS, is a 65 M who presents to the hospital with nausea, vomiting, and dizziness that also been accompanied by tinnitus. He says that it happened suddenly on admission with no prodromal symptoms, no recent viral illnesses and the sensation of tinnitus is bilateral. No significant change in symptoms based on position or eye movement. No weakness or numbness and tingling in bilateral upper or lower extremities, no other signs of a stroke NIH is 0. He did recently finish radiation therapy for prostate cancer but otherwise has not started any new medications. Hospital Course: 1. CVA to the right posterior medial brachium pontis?65-year-old male presented to the hospital with vertigo, nausea, vomiting and tinnitus. Initially this was felt to be either vestibular neuritis or BPPV however given the fact that it did not resolve quickly I obtained an MRI with and without contrast to evaluate for possible acoustic neuroma versus other pathology, it did demonstrate a right posterior medial brachium pontis infarct and therefore neurology was consulted and he was started on aspirin and Lipitor. Echocardiogram showed a slightly decreased EF of 40% with negative bubble, and CT of the head and neck was negative for any major stenoses. Neurology did recommend 30-day event monitor on discharge which we will continue. PT and OT were consulted initially for his dizziness but then also for the CVA and recommended SNF placement. I discussed with him the possibility for discharge to a [place] and he expressed understanding of the risks and benefits of going to the [place] today and would like to go. He wears chronic 2 L of oxygen at baseline for his history of COPD which will be continued on discharge. 2. Essential hypertension, lower extremity muscle spasms from sciatica, GERD, chronic hypoxic respiratory failure from COPD are chronic medical conditions which complicate his care. His home medications were continued where appropriate Weight / BMI Weight Weight: 162 lb 3.2 oz Body Mass Index (BMI) 21.4 ABG / Lab / Microbiology Data 06/06/25 06:56 06/06/25 06:56 Radiography Diagnostic Testing: Radiology Impression Echocardiogram 06/06/25 10:56 Interpretation Summary Limited echocardiogram. Left ventricular systolic function is mildly reduced, with EF: 40% by 3D Wall motion abnormalities as above Grade 1 diastolic dysfunction Normal RV systolic function No evident hemodynamically significant valvular disease within limits of study Negative bubble study Ordering Physician: Kvng King Referring Physician: Iker Blackwell Performed By: Sravan Montiel RDCS Head/Neck CTA 06/07/25 07:08 IMPRESSION: No acute intracranial abnormalities. No hemodynamically significant stenosis in the head and neck. No aneurysm. Reading Location: [facility] D/C Instructions DC O2, CPAP, BIPAP Needs Home O2 Discharge instructions: No Meaningful Use Info Meaningful Use Meaningful Use Diagnoses (Choose all that apply): None applicable Discharge Plan Admission Admit Date/Time: 06/04/25 06:37 Attending Provider: Kvng King Primary Care Provider: Iker Blackwell Consulting Providers: Ben Lu; Rudolph Partida; Imelda Dale; Aura Hines; Kay Chambers; My Zuluaga; Vivek Flynn; iNcole Hicks; Negro Locke; Max Perez; Chi Beatty; Mirella Steel; Lucy Robison; Arcadio Tom; Xin Lloyd; Eric Costa; Glenn David; Chad Rebolledo; Fabian Chaudhry; Olegario Lemus; Bernadette Serrano; Griffin Escalante Discharge Orders/Prescriptions Prescriptions: New atorvastatin 80 mg Tablet 80 mg PO QHS Qty: 0 0RF aspirin 81 mg Tablet,Chewable 81 mg PO BREAKFAST Qty: 0 0RF Continued cyclobenzaprine 10 mg tablet 10 mg PO BID Mucus DM 30-600 mg tablet extended release 12 hr 1 tab PO Q12H PRN (Reason: cough) Qty: 14 0RF OXYGEN - Supplemental ([facility] INFORMATIONAL USE ONLY) Patient Comments: pt states he uses 3L at home and doesn't know who he gets it through albuterol sulfate [Ventolin HFA] 90 mcg/actuation HFA aerosol inhaler 1 - 2 puff inhalation Q4H PRN PRN (Reason: Wheezing) Qty: 1 0RF Trelegy Ellipta 100-62.5-25 mcg blister with device 1 ea inhalation DAILY tamsulosin 0.4 mg capsule 0.4 mg PO DAILY omeprazole 20 mg capsule,delayed release(DR/EC) 20 mg PO DAILY diphenhydramine HCl 25 mg capsule 50 mg PO TID PRN (Reason: allergic reaction) Qty: 20 0RF amlodipine [Norvasc] 2.5 mg tablet 2.5 mg PO DAILY Qty: 30 0RF Discontinued nystatin 100,000 unit/mL Suspension 500,000 unit PO 4X/DAY 7 Days Qty: 140 0RF ondansetron 4 mg tablet,disintegrating 4 mg PO Q8H PRN PRN (Reason: Nausea) Qty: 10 0RF doxycycline hyclate 100 mg capsule 100 mg PO BID 10 Days Qty: 20 0RF Other Ambulatory Orders: 30 Day Event Recorder Preventi (Urgent) Timeframe: 1 Day Facility: [facility] - Location: Cardiovascular Services Ordered By: Dr. Kvng King Referrals / Follow Up: Iker Blackwell MD [Primary Care Provider, Family Practice] Disposition Disposition (needs filled in before D/C Order can be placed): [facility] Care Facility Charges/Coding Visit Charges Inpatient E&M: 87534 Disch Hosp >30min
--- NOTE | 2025-06-07 10:06 | PHA.DC_ITS ---
Pharmacy [place] Med Reconciliation Pharmacy Service has performed discharge medication reconciliation for this patient. The patient's discharge medication list was reviewed for discrepancies and discrepancies were resolved. Medications at Discharge Home Medications albuterol sulfate 90 mcg/actuation aerosol inhaler (Ventolin HFA) 1 - 2 puff inhalation Q4H PRN PRN Wheezing #1 ea 01/02/24 fluticasone fur. 100 mcg-umeclid 62.5 mcg-vilant 25 mcg inhalat.powder (Trelegy Ellipta) 1 ea inhalation DAILY breathing 01/21/24 omeprazole 20 mg capsule,delayed release 20 mg PO DAILY reflux 01/21/24 tamsulosin 0.4 mg capsule 0.4 mg PO DAILY prostate 01/21/24 amlodipine 2.5 mg tablet (Norvasc) 2.5 mg PO DAILY bp #30 tabs 01/22/24 diphenhydramine HCl 25 mg capsule 50 mg (2 x 25 mg) PO TID PRN allergic reaction #20 caps 01/22/24 cyclobenzaprine 10 mg tablet 10 mg PO BID spasm 05/17/24 dextromethorphan-guaifenesin 30 mg-600 mg tablet extended hr (Mucus DM) 1 tab PO Q12H PRN cough #14 tabs 05/18/24 OXYGEN - Supplemental ([facility] INFORMATIONAL USE ONLY) hypoxia 06/05/25 aspirin 81 mg chewable tablet 81 mg PO BREAKFAST #0 tabs 06/07/25 atorvastatin 80 mg tablet 80 mg PO QHS #0 tabs 06/07/25
--- NOTE | 2025-06-07 10:33 | CASEMGMT ---
Discharge Planning Discharge orders, signed med list, and transport time sent via [facility] to [facility]. Physicians will transport pt by wheelchair at 12:45-1p. Nursing, SW, and pt updated. Pt updated his daughter. Corie Pratt DC Planning Asst.
--- NOTE | 2025-06-07 11:23 | CASEMGMT ---
Social Work SW called [facility] and updated them that the patient is DC today to [facility]. YOEL Mccollum
--- NOTE | 2025-06-07 11:27 | CASEMGMT ---
Social Work SW called Reyes at [facility] and left a message. YOEL Mccollum
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
[2025-06-07 12:40] VITALS: BP 140/97; PULSE 93; RESP 16; TEMP 36.9; O2SAT 99
--- NOTE | 2025-06-07 13:00 | NURSING ---
Report called to RAY Celestin at [facility] at this time.
[2025-06-07 13:24] VITALS: PULSE 98; RESP 20
--- NOTE | 2025-06-12 16:13 | CASEMGMT ---
Social Work SW called [facility] and left a message. Reyes with [facility] called SW back and YOEL Montes De Oca
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
== END 2025-06-07 14:42 | disposition skilled nursing facility (03) ==
LOC: ED 22:51 → PCU 06-04 06:44
PROVIDERS: Admitting Provider Internal Medicine; Emergency Provider Emergency Medicine; PCP Family Medicine; Visit Provider Family Medicine
DX: I63.9 Cerebral infarction, unspecified (principal); J96.11 Chronic respiratory failure with hypoxia; J43.9 Emphysema, unspecified; C61 Malignant neoplasm of prostate; R42 Dizziness and giddiness; I10 Essential (primary) hypertension; K21.9 Gastro-esophageal reflux disease without esophagitis; Z79.899 Other long term (current) drug therapy; F17.200 Nicotine dependence, unspecified, uncomplicated; H93.19 Tinnitus, unspecified ear; Z79.51 Long term (current) use of inhaled steroids; N40.1 Benign prostatic hyperplasia with lower urinary tract symptoms; N13.8 Other obstructive and reflux uropathy; R27.0 Ataxia, unspecified; H53.2 Diplopia; R53.1 Weakness
CPT/HCPCS: 36415; 70450; 70496; 70498; 70553; 80048; 80061; 81001; 85025; 93308; 94640; 96372; 96374; 97162; 97164; 97166; 97168; 97802; 99221; 99285; 99406; A9575; Q9967; A4216; G0378; J2405